=== PATIENT | female | born 2000 | race Caucasian/White ===

== ENCOUNTER 2020-05-03 22:34 | Outpatient (CLI) | payer MEDICAID, SELFPAY ==
[2020-05-03 22:49] VITALS: BMI 27.3
[2020-05-03 22:58] VITALS: BP 123/81; PULSE 96; RESP 16; TEMP 36.9; O2SAT 95; BMI 27.3
[2020-05-03 23:11] LABS: Microscopic, Urine URINE MICROSCOPIC (MICROSCOPIC)
[2020-05-03 23:13] LABS: Appearance,Urine CLEAR (Clear); Bilirubin,Urine Negative (Negative); Blood, Urine Negative (Negative); Color,Urine YELLOW (Yellow); Glucose,Urine (UA) Negative (Negative); Ketones,Urine Negative (Negative); Leukocyte Esterase,Urine 2+ (Negative); Nitrate,Urine Negative (Negative); PH,Urine 6.5 (5.0-8.5); Protein,Urine Negative (Negative); Specific Gravity, Urine 1.025 (1.005-1.030); Urobilinogen,Urine 0.2 EU/dl (0.2)
[2020-05-03 23:23] LABS: Barbiturates Screen,Urine Negative ng/ml (<200)
[2020-05-03 23:24] LABS: Amphetamine/Metha Screen,Urine Negative ng/ml (<1000); Bacteria,Urine 1+ /lpf; Benzodiazepines Screen,Urine Negative ng/ml (<200); Mucus,Urine 1+ /lpf
[2020-05-03 23:25] LABS: Cannabinoid Screen,Urine Negative ng/ml (<50)
[2020-05-03 23:26] LABS: Methadone Screen,Urine Negative ng/ml (<300)
[2020-05-03 23:27] LABS: Opiate Screen,Urine Negative ng/ml (<300)
[2020-05-03 23:28] LABS: Phencyclidine Screen,Urine Negative ng/ml (<25)
[2020-05-03 23:38] LABS: Cocaine Screen,Urine Negative ng/ml (<300)
[2020-05-04 00:51] LABS: Fetal Fibronectin (Rapid) Negative (Negative)
== END 2020-05-04 01:23 | disposition home or self-care (01) ==
LOC: OBOUT 22:40 → OB 22:42
PROVIDERS: PCP Family Medicine; Visit Provider Obstetrics & Gynecology
DX: O47.02 False labor before 37 completed weeks of gestation, second trimester (principal); Z3A.26 26 weeks gestation of pregnancy; R11.2 Nausea with vomiting, unspecified
CPT/HCPCS: 59025; 80305; 81001; 82731; 87086; 96365; G0463

== ENCOUNTER 2020-06-03 20:00 | Outpatient (CLI) | payer MEDICAID, SELFPAY ==
--- NOTE | 2020-06-03 | ECG_ITS ---
APPROVED REPORT Exam: Resting ECG HR:93 bpm ECG Measurements Heart Rate 93 AXES UT 154 P 37 QRSd 80 QRS 15 QT 362 T 9 QTc 450 Conclusion Normal sinus rhythm Nonspecific ST-T wave abnormalities Abnormal ECG Electronically signed by : Abner Canchola, 06/05/2020 17:31:41
[2020-06-03 20:15] VITALS: BP 142/79; PULSE 86; RESP 22; TEMP 36.6; O2SAT 99
[2020-06-03 20:33] VITALS: BMI 27.5
[2020-06-03 20:35] VITALS: BP 137/79; PULSE 87; RESP 16; TEMP 36.8; O2SAT 97; BMI 27.4
[2020-06-03 21:46] LABS: Microscopic, Urine URINE MICROSCOPIC (MICROSCOPIC)
[2020-06-03 21:49] LABS: Basophils % 0.3 % (0.1-2.0); Eosinophils # 0.1 K/mm3 (0.0-0.4); Eosinophils % 0.6 % (0.1-12.0); Hematocrit 35.8 % (37.0-47.0); Hemoglobin 12.6 g/dL (12.2-16.2); Lymphocytes # 2.8 K/mm3 (0.7-4.5); Lymphocytes % 28.7 % (10-50); Mean Corpuscular HGB Conc 35.2 g/dL (31.8-35.4); Mean Corpuscular Volume 88.1 fl (81-99); Mean Platelet Volume 9.3 fl (7.4-10.4); Monocytes # 0.4 K/mm3 (0.1-1.0); Neutrophils # 6.4 K/mm3 (1.8-7.8); Neutrophils % 66.5 % (37.0-80.0); Platelet Count 155 K/mm3 (142-424); Red Blood Count 4.06 M/mm3 (4.20-5.40); Red Cell Distribution Width 14.4 % (11.5-17.5); White Blood Count 9.7 K/mm3 (4.8-10.8)
[2020-06-03 21:50] LABS: Appearance,Urine SL CLOUDY (Clear); Bilirubin,Urine Negative (Negative); Blood, Urine Negative (Negative); Color,Urine YELLOW (Yellow); Glucose,Urine (UA) Negative (Negative); Ketones,Urine Negative (Negative); Leukocyte Esterase,Urine 1+ (Negative); Nitrate,Urine Negative (Negative); PH,Urine 6.5 (5.0-8.5); Protein,Urine Negative (Negative); Specific Gravity, Urine 1.025 (1.005-1.030); Urobilinogen,Urine 0.2 EU/dl (0.2)
[2020-06-03 21:59] LABS: Chloride 108 mmol/L (98-107); Potassium 3.4 mmoL/L (3.5-5.1); Sodium 135 mmol/L (136-145)
[2020-06-03 22:00] LABS: Squamous Epithelial Cell,Urine 20-50 #/hpf (0-5)
[2020-06-03 22:02] LABS: Blood Urea Nitrogen 8 mg/dl (7-17); Creatinine Clearance Estimated 202 mL/min (50-200); Estimated Glomerular Filt Rate 154 ml/min (>60); GFR (African American) 187 ML/MIN (>60)
[2020-06-03 22:03] LABS: Anion Gap 10.4 mEq/L (5-15); Calcium 9.2 mg/dl (8.4-10.2); Carbon Dioxide 20 mmol/L (22.0-30.0); Glucose 87 mg/dl (74-100)
[2020-06-03 22:09] LABS: Barbiturates Screen,Urine Negative ng/ml (<200); Benzodiazepines Screen,Urine Negative ng/ml (<200)
[2020-06-03 22:10] LABS: Amphetamine/Metha Screen,Urine Negative ng/ml (<1000)
[2020-06-03 22:11] LABS: Cannabinoid Screen,Urine Negative ng/ml (<50); Methadone Screen,Urine Negative ng/ml (<300)
[2020-06-03 22:12] LABS: Cocaine Screen,Urine Negative ng/ml (<300)
[2020-06-03 22:13] LABS: Opiate Screen,Urine Negative ng/ml (<300); Phencyclidine Screen,Urine Negative ng/ml (<25)
[2020-06-03 22:22] LABS: Coronavirus 19 IgG Antibody Negative (Negative); Coronavirus 19 IgM Antibody Negative (Negative)
== END 2020-06-03 22:54 | disposition home or self-care (01) ==
LOC: OBOUT 20:03 → OB 20:03
PROVIDERS: PCP Obstetrics & Gynecology; Visit Provider Nurse Practitioner Obstetrics & Gynecology
DX: O26.893 Other specified pregnancy related conditions, third trimester (principal); Z3A.31 31 weeks gestation of pregnancy; R06.02 Shortness of breath; I48.92 Unspecified atrial flutter
CPT/HCPCS: 36415; 59025; 80048; 80305; 81001; 85025; 86328; 87086; 93005; G0463

== ENCOUNTER 2020-06-20 17:20 | Outpatient (CLI) | payer MEDICAID, SELFPAY ==
[2020-06-20 17:54] VITALS: BP 123/78; PULSE 94; RESP 18; TEMP 37; O2SAT 100; BMI 27.1
[2020-06-20 17:59] LABS: Microscopic, Urine URINE MICROSCOPIC (MICROSCOPIC)
[2020-06-20 18:17] LABS: Appearance,Urine CLEAR (Clear); Bilirubin,Urine Negative (Negative); Blood, Urine Negative (Negative); Color,Urine YELLOW (Yellow); Glucose,Urine (UA) Negative (Negative); Ketones,Urine Negative (Negative); Leukocyte Esterase,Urine 1+ (Negative); Nitrate,Urine Negative (Negative); PH,Urine 6.5 (5.0-8.5); Protein,Urine Negative (Negative); Specific Gravity, Urine 1.025 (1.005-1.030); Urobilinogen,Urine 0.2 EU/dl (0.2)
[2020-06-20 18:19] LABS: Amphetamine/Metha Screen,Urine Negative ng/ml (<1000)
[2020-06-20 18:20] LABS: Barbiturates Screen,Urine Negative ng/ml (<200); Benzodiazepines Screen,Urine Negative ng/ml (<200)
[2020-06-20 18:21] LABS: Cannabinoid Screen,Urine Negative ng/ml (<50)
[2020-06-20 18:22] LABS: Cocaine Screen,Urine Negative ng/ml (<300); Methadone Screen,Urine Negative ng/ml (<300)
[2020-06-20 18:23] LABS: Opiate Screen,Urine Negative ng/ml (<300)
[2020-06-20 18:24] LABS: Phencyclidine Screen,Urine Negative ng/ml (<25)
[2020-06-20 18:42] LABS: Bacteria,Urine 1+ /lpf; Squamous Epithelial Cell,Urine 20-50 #/hpf (0-5)
[2020-06-20 18:49] LABS: Fetal Membrane Rupture (Rapid) Negative (Negative)
[2020-06-20 19:18] LABS: Fetal Fibronectin (Rapid) Negative (Negative)
== END 2020-06-20 19:44 | disposition home or self-care (01) ==
LOC: OBOUT 17:24 → OB 17:24
PROVIDERS: PCP Family Medicine; Visit Provider Obstetrics & Gynecology
DX: O36.8130 Decreased fetal movements, third trimester, not applicable or unspecified (principal); Z3A.33 33 weeks gestation of pregnancy; R10.2 Pelvic and perineal pain; M54.5 Low back pain
CPT/HCPCS: 59025; 80305; 81001; 82731; 84112; 87086; G0463

== ENCOUNTER 2020-06-24 13:22 | Emergency (ER) | payer MEDICAID, SELFPAY ==
[2020-06-24 13:45] VITALS: BP 140/90; PULSE 89; RESP 20; TEMP 36.6; O2SAT 99; BMI 28.1
--- NOTE | 2020-06-24 14:03 | HMH.EDUTC ---
[facility] [place] Disposition Clinical Impression: Exposure to COVID-19 virus Disposition: Home, Self-Care Condition on Discharge: Good Instructions: Preventing the Spread of Coronavirus Discharge Instructions Additional Instructions: You have been tested for COVID19. These test results usually take 24-48 hours. However, based on your exposure history, you need to quarantine yourself for 14 days from the date of exposure to avoid spread. Referrals: Joni Esposito [Primary Care Provider] - Time of Disposition: 14:06 Medical Decision Making - Paresh Inquiry Pt receiving controlled substance: No Vital Signs: 06/24/20 13:45 Temperature 97.9 F Temperature Source Oral Pulse Rate [Radial] 89 Respiratory Rate 20 Blood Pressure [Right Arm] 140/90 Blood Pressure Mean [Right Arm] 106 Blood Pressure Source [Right Arm] Automatic Cuff Blood Pressure Position [Right Arm] Sitting 02 Sat by Pulse Oximetry 99 Oxygen Delivery Method Room Air Orders (Tests/Meds): ORDERS Category Date Time Status Covid-19 Nasal PCR Sendout [facility] 06/24/20 13:40 Received [facility] [place] HPI - General Stated complaint: COVID Exposure, cough, GARCIA Time Seen by Provider: 06/24/20 14:03 Mode of Arrival: Ambulatory Source of Information: Patient Limitations: No Limitations Description of Symptoms (Recalled from Triage Doc. by RN): covid exposure HEENT Symptoms (Recalled from RN notes): No Resp Symptoms (Recalled from RN notes): No Skin Symptoms (Recalled from RN notes): No MS Symptoms (Recalled from RN notes): No Functional Status (Recalled from RN notes): wnl - History of Present Illness Provider Complaint: Patient exposed to COVID19 06/21. She is having runny nose, cough, sinus pain. No fever. No loss of taste or smell. No vomiting or diarrhea. She is 34 weeks . Onset (ago): day(s) (3) Relieving factors: none Exacerbating factors: none Associated symptoms: denies other symptoms Treatments prior to arrival: none - Related Data Home Medications Medication Instructions Recorded Confirmed Docusate Sodium [Stool Softener] 100 mg PO BID 05/04/20 06/18/20 Ondansetron [Zofran 4mg ODT] 4 mg PO BIDP PRN 05/04/20 06/18/20 Pnv No.103/Folic/Om3s/Fish Oil 1 each PO DAILY 05/04/20 06/18/20 [ Gummies] Allergies Allergy/AdvReac Type Severity Reaction Status Date / Time amoxicillin [From Augmentin] Allergy Verified 06/18/20 14:01 clavulanic acid Allergy Verified 06/18/20 14:01 [From Augmentin] Penicillins Allergy Verified 06/18/20 14:01 - Worker's Comp Is this a Worker's Comp case?: No [facility] History - Hepatitis A Screen Drug use history?: No High risk sexual behaviors?: No History of sexually transmitted infection?: No Currently employed?: No Childcare worker?: No Do you have indoor plumbing?: Yes Do you have electricity?: Yes Attestation statement:: This patient has been screened for Hepatitis A risk factors. I have reviewed the patient's past medical history: Yes Medical History: Reports:: Anxiety, Depression Laterality Cases: Bilateral: Tonsillectomy Other Surgeries: No: Amputation: No Fractures: No - Social History Smoking Status: Current every day smoker Tobacco Type: cigarettes # Packs/Day (cigarettes): 1 Alcohol Intake: never Alcohol Intake Frequency:: holidays/special occasions only Substance Use Type: denies use Occupational Status: other Housing: house - Psychiatric History Pschychiatric History:: Reports:: Anxiety, Depression Family Hx:: No significant family history ROS Obtained: Yes All systems reviewed & no additional complaints - ENT Ears, Nose, Mouth, and Throat: Reports sinus pain - Respiratory Respiratory: Yes cough Physical Exam - General General appearance: alert, in no apparent distress - Head Head exam: normocephalic - Eye Eye exam: Present: PERRL - ENT ENT exam: Present: normal oropharynx, TM's normal bilaterally - Chest Katarina
[2020-06-24 14:13] VITALS: BP 140/90; PULSE 89; RESP 20; TEMP 36.6; O2SAT 99
[2020-06-25 10:07] LABS: Covid-19 Nasal PCR Sendout UK NOT DETECTED
== END 2020-06-24 14:14 | disposition home or self-care (01) ==
PROVIDERS: Emergency Provider Physician Assistant; PCP Family Medicine
DX: Z20.828 Contact with and (suspected) exposure to other viral communicable diseases (principal); F17.210 Nicotine dependence, cigarettes, uncomplicated; Z88.0 Allergy status to penicillin
CPT/HCPCS: 99201; U0003

== ENCOUNTER 2020-06-26 14:27 | Outpatient (CLI) | payer MEDICAID, SELFPAY ==
--- NOTE | 2020-06-26 14:27 | US_ITS ---
PROCEDURE: US OB BIOPHYSICAL PROFILE CLINICAL INDICATION: sga TECHNIQUE: FINDINGS: The following parameters are obtained: Average ultrasound age is Average 35weeks 3days Estimated due date by ultrasound is 07/28/2020. Estimated weight is 2,593g. This is 65th percentile. BPD 35 weeks 6 days, OFD 37 weeks 3 days, HC 35 weeks 6 days, AC 35 weeks 0 days, FL 35 weeks 0 days. heart rate: 134bpm bpm. HC/AC: 1.03 Cephalic index: 0.79 FL/BPD: 0.77 FL/AC: 0.22 Amniotic fluid index: 12.12cm Qualitative AFV: 2 breathing movements: 2 Gross body movements: 2 Tone: 2 Biophysical profile score: 8 Single live fetus is present which is in cephalic presentation. heart and body motion is noted. The placenta is anterior and grade 2. Cervix is closed and measures 3 cm. IMPRESSION: Live IUP at 35 weeks 3 days with an estimated weight of 2593 g which is 65th percentile. Biophysical profile 8 of 8. FRANSISCA normal at 12 cm Dictated by: Antonio Wakefield MD 06/27/2020 12:34 Antonio Wakefield MD in [place] 06/27/2020 12:35
[2020-06-26 16:17] VITALS: BMI 60.9
[2020-06-26 17:16] LABS: Microscopic, Urine URINE MICROSCOPIC (MICROSCOPIC)
[2020-06-26 17:21] LABS: Appearance,Urine CLEAR (Clear); Bilirubin,Urine Negative (Negative); Blood, Urine Negative (Negative); Color,Urine YELLOW (Yellow); Glucose,Urine (UA) Negative (Negative); Ketones,Urine Negative (Negative); Leukocyte Esterase,Urine Negative (Negative); Nitrate,Urine Negative (Negative); PH,Urine 6.5 (5.0-8.5); Protein,Urine Negative (Negative); Urobilinogen,Urine 0.2 EU/dl (0.2)
[2020-06-26 17:25] VITALS: BP 133/88; PULSE 95; RESP 18; TEMP 36.9; O2SAT 100
[2020-06-26 17:27] VITALS: BMI 27.6
[2020-06-26 17:29] LABS: Basophils % 0.2 % (0.1-2.0); Eosinophils # 0.1 K/mm3 (0.0-0.4); Eosinophils % 0.5 % (0.1-12.0); Hematocrit 38.2 % (37.0-47.0); Hemoglobin 13.5 g/dL (12.2-16.2); Lymphocytes # 2.7 K/mm3 (0.7-4.5); Lymphocytes % 24.7 % (10-50); Mean Corpuscular HGB Conc 35.4 g/dL (31.8-35.4); Mean Corpuscular Hemoglobin 30.7 pg (27.0-31.2); Mean Corpuscular Volume 86.8 fl (81-99); Mean Platelet Volume 9.4 fl (7.4-10.4); Monocytes # 0.5 K/mm3 (0.1-1.0); Monocytes % 4.2 % (1.7-9.3); Neutrophils # 7.7 K/mm3 (1.8-7.8); Neutrophils % 70.4 % (37.0-80.0); Platelet Count 152 K/mm3 (142-424); Red Cell Distribution Width 14.5 % (11.5-17.5); White Blood Count 10.9 K/mm3 (4.8-10.8)
[2020-06-26 17:32] LABS: Benzodiazepines Screen,Urine Negative ng/ml (<200)
[2020-06-26 17:33] LABS: Amphetamine/Metha Screen,Urine Negative ng/ml (<1000); Barbiturates Screen,Urine Negative ng/ml (<200)
[2020-06-26 17:34] LABS: Methadone Screen,Urine Negative ng/ml (<300)
[2020-06-26 17:35] LABS: Cannabinoid Screen,Urine Negative ng/ml (<50); Cocaine Screen,Urine Negative ng/ml (<300)
[2020-06-26 17:36] LABS: Chloride 107 mmol/L (98-107); Sodium 135 mmol/L (136-145)
[2020-06-26 17:36] LABS: Opiate Screen,Urine Negative ng/ml (<300); Phencyclidine Screen,Urine Negative ng/ml (<25)
[2020-06-26 17:37] LABS: Potassium 3.7 mmoL/L (3.5-5.1)
[2020-06-26 17:40] LABS: Anion Gap 12.7 mEq/L (5-15); Blood Urea Nitrogen 6 mg/dl (7-17); Calcium 9.3 mg/dl (8.4-10.2); Carbon Dioxide 19 mmol/L (22.0-30.0); Creatinine Clearance Estimated 203 mL/min (50-200); Estimated Glomerular Filt Rate 154 ml/min (>60); GFR (African American) 187 ML/MIN (>60); Glucose 80 mg/dl (74-100)
[2020-06-26 17:44] LABS: Bacteria,Urine Trace /lpf
== END 2020-06-26 19:15 | disposition hospice, home (50) ==
LOC: RAD 14:27 → OBOUT 16:06 → OB 16:06
PROVIDERS: PCP Family Medicine; Visit Provider Nurse Practitioner Obstetrics & Gynecology
DX: O36.5930 Maternal care for other known or suspected poor fetal growth, third trimester, not applicable or unspecified (principal); Z3A.34 34 weeks gestation of pregnancy
CPT/HCPCS: 59025; 76811; 76819; 80048; 80305; 81001; 85025; 96365; G0463; J2405

== ENCOUNTER 2020-06-30 18:16 | Outpatient (CLI) | payer MEDICAID, SELFPAY ==
[2020-06-30 18:19] VITALS: BMI 27.7
[2020-06-30 19:14] LABS: Microscopic, Urine URINE MICROSCOPIC (MICROSCOPIC)
[2020-06-30 19:15] LABS: Appearance,Urine CLEAR (Clear); Bilirubin,Urine Negative (Negative); Blood, Urine Negative (Negative); Color,Urine YELLOW (Yellow); Glucose,Urine (UA) Negative (Negative); Ketones,Urine Negative (Negative); Leukocyte Esterase,Urine TRACE (Negative); Nitrate,Urine Negative (Negative); Protein,Urine Negative (Negative); Urobilinogen,Urine 0.2 EU/dl (0.2)
[2020-06-30 19:24] VITALS: BMI 27.6
[2020-06-30 19:27] LABS: Amphetamine/Metha Screen,Urine Negative ng/ml (<1000); Barbiturates Screen,Urine Negative ng/ml (<200)
[2020-06-30 19:28] LABS: Cannabinoid Screen,Urine Negative ng/ml (<50)
[2020-06-30 19:29] LABS: Cocaine Screen,Urine Negative ng/ml (<300)
[2020-06-30 19:30] LABS: Methadone Screen,Urine Negative ng/ml (<300); Opiate Screen,Urine Negative ng/ml (<300)
[2020-06-30 19:31] LABS: Phencyclidine Screen,Urine Negative ng/ml (<25)
[2020-06-30 19:32] LABS: Bacteria,Urine Trace /lpf
[2020-06-30 19:33] LABS: Benzodiazepines Screen,Urine Negative ng/ml (<200)
== END 2020-06-30 20:30 | disposition home or self-care (01) ==
LOC: OBOUT 18:18 → OB 18:18
PROVIDERS: PCP Family Medicine; Visit Provider Obstetrics & Gynecology
DX: O47.03 False labor before 37 completed weeks of gestation, third trimester (principal); Z3A.35 35 weeks gestation of pregnancy
CPT/HCPCS: 59025; 80305; 81001; 87086; G0463

== ENCOUNTER → 2020-07-02 17:47 | Outpatient (CLI) | payer MEDICAID, SELFPAY ==
[2020-07-02 17:49] LABS: Microscopic, Urine URINE MICROSCOPIC (MICROSCOPIC)
[2020-07-02 18:50] LABS: Appearance,Urine CLEAR (Clear); Bilirubin,Urine Negative (Negative); Blood, Urine Negative (Negative); Color,Urine YELLOW (Yellow); Glucose,Urine (UA) Negative (Negative); Ketones,Urine Negative (Negative); Leukocyte Esterase,Urine 1+ (Negative); Nitrate,Urine Negative (Negative); PH,Urine 6.5 (5.0-8.5); Protein,Urine Negative (Negative); Specific Gravity, Urine 1.025 (1.005-1.030); Urobilinogen,Urine 0.2 EU/dl (0.2)
[2020-07-02 19:28] LABS: WBC,Urine Occasional #/hpf (0-3)
== END ==
PROVIDERS: Visit Provider Nurse Practitioner Obstetrics & Gynecology
DX: Z34.90 Encounter for supervision of normal pregnancy, unspecified, unspecified trimester (principal); Z3A.35 35 weeks gestation of pregnancy
CPT/HCPCS: 81001; 86403; 87086

== ENCOUNTER → 2020-07-06 13:52 | Outpatient (CLI) | payer MEDICAID, SELFPAY ==
--- NOTE | 2020-07-06 13:52 | US_ITS ---
PROCEDURE: US OB FOLLOW UP CLINICAL INDICATION: sga Small for gestational age COMPARISON: US US OB BIOPHYSICAL PROFILE from 06/26/2020 FINDINGS: There is a single live fetus in cephalic presentation. heart body motion noted. Placenta is anterior and grade 2. Biophysical profile is 8 of 8. FRANSISCA is 13 cm. Cervix is closed measuring 4 cm. Measurements: Average ultrasound age 36weeks 4days. Gestational Age 36weeks 4days Estimated due date by ultrasound age 0107/30/2020. Estimated weight 2,840g BPD = 37weeks 4days OFD = 39 weeks 5 days HC = 37weeks 1day AC = 35weeks 5days FL = 35weeks 6days Growth Percentile= 58% Heart Rate = 134bpm Cerebellum = Humerus = HC/AC is 1.03 CI is 0.81 FL/BPD is 0.76 FL/AC is 0.22 IMPRESSION: Live IUP at 36 weeks 4 days. Estimated weight 2840 g which is 58 percentile Biophysical profile 8 of 8 FRANSISCA 13 cm Dictated by: Antonio Wakefield MD 07/06/2020 17:26 Antonio Wakefield MD in [place] 07/06/2020 17:26
== END ==
PROVIDERS: PCP Family Medicine; Visit Provider Nurse Practitioner Obstetrics & Gynecology
DX: O36.5990 Maternal care for other known or suspected poor fetal growth, unspecified trimester, not applicable or unspecified (principal)
CPT/HCPCS: 76816; 76819

== ENCOUNTER 2020-07-17 22:20 | Outpatient (CLI) | payer MEDICAID, SELFPAY ==
[2020-07-17 22:29] VITALS: BMI 28.1
[2020-07-17 22:46] VITALS: BP 136/88; PULSE 108; RESP 16; TEMP 37.2; O2SAT 97; BMI 28.1
[2020-07-17 22:46] LABS: Microscopic, Urine URINE MICROSCOPIC (MICROSCOPIC)
[2020-07-17 22:47] LABS: Appearance,Urine CLEAR (Clear); Bilirubin,Urine Negative (Negative); Blood, Urine Negative (Negative); Color,Urine YELLOW (Yellow); Glucose,Urine (UA) Negative (Negative); Ketones,Urine Negative (Negative); Leukocyte Esterase,Urine 1+ (Negative); Nitrate,Urine Negative (Negative); PH,Urine 6.5 (5.0-8.5); Protein,Urine Negative (Negative); Specific Gravity, Urine 1.025 (1.005-1.030); Urobilinogen,Urine 0.2 EU/dl (0.2)
[2020-07-17 23:00] LABS: Amphetamine/Metha Screen,Urine Negative ng/ml (<1000); Barbiturates Screen,Urine Negative ng/ml (<200)
[2020-07-17 23:01] LABS: Benzodiazepines Screen,Urine Negative ng/ml (<200)
[2020-07-17 23:02] LABS: Cannabinoid Screen,Urine Negative ng/ml (<50); Cocaine Screen,Urine Negative ng/ml (<300)
[2020-07-17 23:03] LABS: Methadone Screen,Urine Negative ng/ml (<300)
[2020-07-17 23:04] LABS: Opiate Screen,Urine Negative ng/ml (<300); Phencyclidine Screen,Urine Negative ng/ml (<25)
[2020-07-17 23:23] LABS: Bacteria,Urine 1+ /lpf; Mucus,Urine 1+ /lpf
== END 2020-07-17 23:32 | disposition home or self-care (01) ==
LOC: OBOUT 22:23 → OB 22:23
PROVIDERS: PCP Family Medicine; Visit Provider Obstetrics & Gynecology
DX: O60.03 Preterm labor without delivery, third trimester (principal); Z3A.37 37 weeks gestation of pregnancy; R11.10 Vomiting, unspecified
CPT/HCPCS: 59025; 80305; 81001; 87086; G0463

== ENCOUNTER 2020-07-24 10:23 | Outpatient (CLI) | payer MEDICAID, SELFPAY ==
[2020-07-24 11:00] VITALS: BP 130/88; PULSE 104; RESP 20; TEMP 36.7; O2SAT 98; BMI 31.6
[2020-07-24 11:11] VITALS: BMI 31.6
[2020-07-24 11:33] LABS: Microscopic, Urine URINE MICROSCOPIC (MICROSCOPIC)
[2020-07-24 11:47] LABS: Appearance,Urine Clear (Clear); Bilirubin,Urine Negative (Negative); Blood, Urine Trace (Negative); Color,Urine Yellow (Yellow); Glucose,Urine (UA) Negative (Negative); Ketones,Urine Negative (Negative); Leukocyte Esterase,Urine Negative (Negative); Nitrate,Urine Negative (Negative); Protein,Urine Negative (Negative); Urobilinogen,Urine 0.2 EU/dl (0.2)
[2020-07-24 11:52] LABS: Barbiturates Screen,Urine Negative ng/ml (<200); Benzodiazepines Screen,Urine Negative ng/ml (<200)
[2020-07-24 11:53] LABS: Amphetamine/Metha Screen,Urine Negative ng/ml (<1000); Cannabinoid Screen,Urine Negative ng/ml (<50)
[2020-07-24 11:54] LABS: Cocaine Screen,Urine Negative ng/ml (<300)
[2020-07-24 11:55] LABS: Methadone Screen,Urine Negative ng/ml (<300); Opiate Screen,Urine Negative ng/ml (<300)
[2020-07-24 11:56] LABS: Phencyclidine Screen,Urine Negative ng/ml (<25)
[2020-07-24 12:03] LABS: Fetal Membrane Rupture (Rapid) Negative (Negative)
== END 2020-07-24 12:28 | disposition home or self-care (01) ==
LOC: OBOUT 10:27 → OB 10:28
PROVIDERS: PCP Family Medicine; Visit Provider Nurse Practitioner Obstetrics & Gynecology
DX: O26.893 Other specified pregnancy related conditions, third trimester (principal); Z3A.38 38 weeks gestation of pregnancy
CPT/HCPCS: 59025; 80305; 81001; 84112

== ENCOUNTER 2020-07-31 04:53 | Inpatient (IN) | payer MEDICAID, SELFPAY ==
[2020-07-31 05:07] VITALS: BMI 27.8
[2020-07-31 05:57] VITALS: BP 139/96; PULSE 110; RESP 18; TEMP 36.7; O2SAT 100; BMI 27.8
[2020-07-31 05:58] LABS: Microscopic, Urine URINE MICROSCOPIC (MICROSCOPIC)
[2020-07-31 06:04] LABS: Basophils % 0.3 % (0.1-2.0); Eosinophils % 0.4 % (0.1-12.0); Hematocrit 38.2 % (37.0-47.0); Hemoglobin 13.8 g/dL (12.2-16.2); Lymphocytes # 3.2 K/mm3 (0.7-4.5); Lymphocytes % 28.7 % (10-50); Mean Corpuscular HGB Conc 36.1 g/dL (31.8-35.4); Mean Corpuscular Volume 85.8 fl (81-99); Mean Platelet Volume 9.4 fl (7.4-10.4); Monocytes # 0.5 K/mm3 (0.1-1.0); Monocytes % 4.6 % (1.7-9.3); Neutrophils # 7.3 K/mm3 (1.8-7.8); Platelet Count 133 K/mm3 (142-424); Red Blood Count 4.45 M/mm3 (4.20-5.40); Red Cell Distribution Width 15.3 % (11.5-17.5)
[2020-07-31 06:12] LABS: Appearance,Urine CLEAR (Clear); Bilirubin,Urine Negative (Negative); Blood, Urine Negative (Negative); Color,Urine YELLOW (Yellow); Glucose,Urine (UA) Negative (Negative); Ketones,Urine Negative (Negative); Leukocyte Esterase,Urine 1+ (Negative); Nitrate,Urine Negative (Negative); PH,Urine 6.5 (5.0-8.5); Protein,Urine Negative (Negative); Urobilinogen,Urine 0.2 EU/dl (0.2)
[2020-07-31 06:22] LABS: RBC,Urine Occasional #/hpf (0-3)
[2020-07-31 06:23] LABS: Amphetamine/Metha Screen,Urine Negative ng/ml (<1000); Benzodiazepines Screen,Urine Negative ng/ml (<200)
[2020-07-31 06:24] LABS: Barbiturates Screen,Urine Negative ng/ml (<200)
[2020-07-31 06:25] LABS: Cannabinoid Screen,Urine Negative ng/ml (<50); Cocaine Screen,Urine Negative ng/ml (<300)
[2020-07-31 06:26] LABS: Methadone Screen,Urine Negative ng/ml (<300); Opiate Screen,Urine Negative ng/ml (<300)
[2020-07-31 06:27] LABS: Phencyclidine Screen,Urine Negative ng/ml (<25)
[2020-07-31 06:39] LABS: Coronavirus 19 IgG Antibody Negative (Negative); Coronavirus 19 IgM Antibody Negative (Negative)
[2020-07-31 08:00] VITALS: BP 130/86; PULSE 93; RESP 20; TEMP 37; O2SAT 100
--- NOTE | 2020-07-31 08:21 | HMH.LABNOT ---
Labor Note - Subjective: Date: 07/31/20 Time: 08:21 regular contraction - Objective: NST:: Reactive Contractions:: every 2-3 minutes Cervical Dilation:: 2-3 Effacement:: 75% Station: -1 Membranes: artificially ruptured Comment:: I ruptured her membranes and there was clear fluid. I inserted an IUPC - Fetus: Monitoring?: Yes monitoring type:: Internal and External - Assessment: Labor progressing?: Yes Cephalopelvic disproportion?: No Patient Problems: All Active Problems Exposure to COVID-19 virus (Acute) (Acute) - Plan: Anesthesia for epidural?: Yes Continue to labor down?: Yes Plan for ?: No Continue to monitor?: Yes Start pushing?: No
--- NOTE | 2020-07-31 08:22 | HMH.OBAPHP ---
OB - H&P: HPI Antepartum - History of Present Illness Chief complaint: Pressure and occasional contractions, term History of present illness: She is a 20-year-old eight para one aborta six who is 39 and 3 weeks gestational age. She has had lots of pressure and occasional contractions. As result of this we elected to augment her labor at term. - History of Present Criteria for establishing EDC:: LMP confirmed by 1st trimester US care: good care Ultrasounds: normal mid trimester US Obstetrical complications: none Medical complications: none - Labs Blood type: O (+) positive Rubella: immune RPR/VDRL: nonreactive GBS status: negative HBsAG: negative [facility] History I have reviewed the patient's past medical history: Yes Medical History: Reports:: Anxiety, Depression *Have you ever received a pneumonia vaccine?: No *Have you received a flu vaccine this season?: No Laterality Cases: Bilateral: Tonsillectomy Other Surgeries: Yes: No Previous Surgery. No: Amputation: No Fractures: No - *Social History Smoking Status: Current every day smoker Tobacco Type: cigarettes # Packs/Day (cigarettes): 1 Alcohol Intake: never Alcohol Intake Frequency:: holidays/special occasions only Substance Use Type: denies use *Occupational Status:: unemployed Housing: house *Travel in the last 8 weeks: None - Psychiatric History Pschychiatric History:: Reports:: Anxiety, Depression Family Hx:: No significant family history Para: 1 Review of Systems - Review of Systems Review of systems:: pertinent systems reviewed and negative unless documented below Meds Home Medications Medication Instructions Recorded Confirmed Type Pnv No.103/Folic/Om3s/Fish Oil 1 each PO DAILY 05/04/20 07/31/20 History [ Gummies] Allergies Allergy/AdvReac Type Severity Reaction Status Date / Time amoxicillin [From Augmentin] Allergy Verified 07/23/20 13:51 clavulanic acid Allergy Verified 07/23/20 13:51 [From Augmentin] Penicillins Allergy Verified 07/23/20 13:51 OB - H&P: Exam - Physical Exam Vital signs: Temp Pulse Resp BP Pulse Ox 98.1 F 110 H 18 139/96 H 100 07/31/20 05:57 07/31/20 05:57 07/31/20 05:57 07/31/20 05:57 07/31/20 05:57 - Constitutional no acute distress - Routine HEENT Exam Head: Present: normocephalic Eye: Present: EOMI, PERRL ENT: Present: mucous membranes moist - Routine Neck Exam Present: supple, full ROM - Routine Respiratory Exam Absent: accessory muscle use (good air entry bilaterally), respiratory distress, wheezes, crackles - Routine Cardiovascular Exam Present: RRR. Absent: murmur - Routine Abdominal Exam Present: soft, normoactive bowel sounds. Absent: tenderness, distended, guarding - Routine Rectal Exam Patient deferred: visual exam, digital exam - Routine Exam Patient deferred: external exam, groin exam, perineal exam - Routine Extremities Exam Present: full ROM. Absent: cyanosis, edema - Routine Skin Exam Present: intact. Absent: cyanosis - Routine Neurological Exam Present: alert, oriented X3 - Routine Psychiatric Exam Present: normal affect OB - Results - Labs Labs: Short CBC 07/31/20 Range/Units 05:40 WBC 11.0 H (4.8-10.8) K/mm3 Hgb 13.8 (12.2-16.2) g/dL Hct 38.2 (37.0-47.0) % Plt Count 133 L (142-424) K/mm3 Urine 07/31/20 Range/Units 05:15 Urine Color Yellow (Yellow) Urine Appearance Clear (Clear) Urine pH 6.5 (5.0-8.5) Ur Specific [place] 1.020 (1.005-1.030) Urine Protein Negative (Negative) Urine Glucose (UA) Negative (Negative) OB - A/P Antepartum (1) Normal delivery Status: Acute - Additional Plan Planning to breastfeed?: Yes Plan: induction Additional Information:: She is term with occasional contractions and pressure. We will plan to deliver her. She has had a previous vaginal delivery.
--- NOTE | 2020-07-31 09:03 | HMH.ANESCL ---
[facility] Anesthesia Checklist - Structural Data Admitted From: Home Planned Operative Procedure/s: labor epidural Consent for Planned Operative Procedure(s) Verified: Yes - Airway Assessment C-Spine Mobility Assessed: Yes TMJ Mobility Assessed: Yes Dentition: Good Dentition - Anesthesia Plan Anesthesia Risk discussed: Yes Anesthesia Plan: Verified ASA Class: II Anesthesia Type: Epidural [facility] History I have reviewed the patient's past medical history: Yes Medical History: Reports:: Anxiety, Depression *Have you ever received a pneumonia vaccine?: No *Have you received a flu vaccine this season?: No Anesthesia experience/problems:: none Laterality Cases: Bilateral: Tonsillectomy Other Surgeries: Yes: No Previous Surgery. No: Amputation: No Fractures: No - *Social History Smoking Status: Current every day smoker Tobacco Type: cigarettes # Packs/Day (cigarettes): 1 Alcohol Intake: never Alcohol Intake Frequency:: holidays/special occasions only Substance Use Type: denies use *Occupational Status:: unemployed Housing: house *Travel in the last 8 weeks: None - Psychiatric History Pschychiatric History:: Reports:: Anxiety, Depression Family Hx:: No significant family history Para: 1
--- NOTE | 2020-07-31 11:21 | HMH.LABNOT ---
Labor Note - Subjective: Date: 07/31/20 Time: 11:21 regular contraction - Objective: Contractions:: every 2-3 minutes Cervical Dilation:: 4-5 Effacement:: 90% Station: -1 Membranes: artificially ruptured - Fetus: Monitoring?: Yes monitoring type:: Internal and External - Assessment: Labor progressing?: Yes Cephalopelvic disproportion?: No Patient Problems: All Active Problems Exposure to COVID-19 virus (Acute) Normal delivery (Acute) (Acute) - Plan: Anesthesia for epidural?: Yes Continue to labor down?: Yes Plan for ?: No Continue to monitor?: Yes Start pushing?: No Comment:: She continues to do well. She is serjio regularly. Her cervix is changing. We will continue to monitor. She does have an IUPC in place.
--- NOTE | 2020-07-31 13:53 | P.PCN_ITS ---
- Delivery Note Delivery Date:: 07/31/20 Delivery Time:: 11:36 Anesthesia Type: Epidural Was labor medically induced?: Yes Induction method: per pitocin protocol Gestational age (weeks): 39 Infant delivered prior to 39 weeks?: No Infant Gender: Male at 1 minute: 8 at 5 minutes: 9 LAC or MLE?: LAC Delivery Procedure:: She is a 20-year-old 8 para 1 aborta 6 who was 39+3 weeks gestational age. She was having lots of pressure and discomfort so we elected to induce her labor at term. She was started on IV oxytocin and had her membranes ruptured. Under labor epidural she progressed to full dilation and delivered spontaneously a liveborn male child at 1:36 PM in the afternoon of July 31, 2020. On deliver the head the anterior shoulder then easily delivered followed by the rest the 's body atraumatically. The baby was vigorous and the oropharynx and nasopharynx were bulb suctioned. We allowed the cord to continue to pulsate for approximately 1 minute. The cord was then doubly clamped and cut and the was placed on the mother's abdomen for further care. I then obtained cord blood as well as cord pH. She received IV oxytocin and using gentle traction the cord and countertraction on the fundus I was able to easily deliver the placenta intact. Had normal three-vessel cord. She had a second-degree perineal laceration that was repaired with 3-0 Vicryl Rapide suture to the superficial tissues and 2-0 Vicryl suture to the deep tissues of the perineum. She has O+ blood, she is rubella immune and was group B streptococcus negative. She plans to breast-feed. Her financial services professional is Dr. Diaz. Estimated blood loss was approximately 400 cc. Laceration:: vaginal Placental Delivery Description: Spontaneous
[2020-07-31 13:56] LABS: Cord Blood PH 7.32 (7.35-7.45)
[2020-07-31 20:00] VITALS: BP 104/56; PULSE 66; RESP 18; TEMP 36.7; O2SAT 99
[2020-08-01 07:54] LABS: Hematocrit 35.4 % (37.0-47.0); Hemoglobin 12.6 g/dL (12.2-16.2)
--- NOTE | 2020-08-01 10:41 | HMH.ACPN2 ---
Internal Medicine - PN: Subj *Date: 08/01/20 *Time: 10:41 Interval history: She is doing very well this morning. She is eating and drinking and ambulating. Her lochia is normal. Her pain is well controlled. She is bottlefeeding. Exam Vital signs and Labs for Last 24 Hours: Temp Pulse Resp BP Pulse Ox 98.0 F 66 18 104/56 L 99 07/31/20 20:00 07/31/20 20:00 07/31/20 20:00 07/31/20 20:00 07/31/20 20:00 Laboratory Results - last 24 hr 07/31/20 13:54: Cord ABG pH 7.32 L 08/01/20 06:50: Hgb 12.6, Hct 35.4 L I & O for Last 24 hours: Intake & Output 07/29/20 07/30/20 07/31/20 08/01/20 11:59 11:59 11:59 11:59 Weight 162 lb Microbiology Reports for the Last 24 Hours: Microbiology 07/31/20 05:15 Urine,Clean Catch Urine Culture - Preliminary - Constitutional no acute distress - *Routine HEENT Exam Head: Present: normocephalic Eye: Present: EOMI, PERRL ENT: Present: mucous membranes moist Assessment and Plan (1) Normal delivery Status: Acute Category: Medical Code(s): O80 - Encounter for full-term uncomplicated delivery - Assessment and plan all Dx Assessment and Plan for all problems:: She is doing very well this morning. We will plan to send her home tomorrow.
[2020-08-01 19:43] VITALS: BP 126/74; PULSE 72; RESP 18; TEMP 36.7; O2SAT 99
[2020-08-02 03:31] VITALS: BP 126/77; PULSE 71; RESP 18; TEMP 36.4; O2SAT 98
--- NOTE | 2020-08-02 08:36 | P.DS_ITS ---
General - General Admission date:: 07/31/20 Discharge date: 08/02/20 HPI - History of Present Illness History of present illness: She is a 20-year-old 8 para 1 aborta 6 who was 39 and 3 weeks gestational age. She was feeling pressure and discomfort and as result of that we elected to induce her labor at term. Hospital Course Hospital Course: She was admitted and started on IV oxytocin. She had her membranes ruptured and under labor epidural progressed to full dilation and delivered spontaneously a liveborn male child at 1:36 PM in the afternoon of July 31, 2020. The baby weighed 8 pounds 3 ounces and had Apgars of 8 at 1 minute and 9 at 5 minutes. She has done well and has remained afebrile throughout her hospitalization. She is eating and drinking and ambulating. She is bottlefeeding. She would like a tubal ligation for control. She has O Rh+ blood, she is rubella immune and was group B streptococcus negative. She is bottlefeeding. Her hot tar roofer helper is Dr. Diaz. She is discharged home to follow-up with me in approximately 2 weeks time. She will continue with her vitamins and iron. She is taking [id number] analgesics. Her condition on discharge is stable and improved. Rhogam Administration: Not Indicated Objective Vital signs: Temp Pulse Resp BP Pulse Ox 97.6 F 71 18 126/77 98 08/02/20 03:31 08/02/20 03:31 08/02/20 03:31 08/02/20 03:31 08/02/20 03:31 no acute distress - *Routine HEENT Exam Head: Present: normocephalic Eye: Present: EOMI, PERRL ENT: Present: mucous membranes moist DS: Diagnosis - Discharge Diagnosis (1) Normal delivery Status: Acute Discharge Plan - Patient Discharge Instructions ACTIVITY: No heavy lifting DIET: continue same diet Additional Instructions: NO HEAVY LIFTING (NOTHING HEAVIER THAN BABY IN CARRIER), NOTHING IN THE VAGINA, NO SEXUAL INTERCOURSE, UNTIL RELEASED BY DOCTOR. Patient Instructions: Depression, Hemorrhage, DI for Labor and Delivery, Vaginal , Preventing the Spread of Coronavirus Discharge Instructions - Follow up Plan Follow up with: Luis Clark MD [Staff Physician] - Disposition: Home, Self-Assisted Medications: Home Medications Medication Instructions Recorded Confirmed Type Pnv No.103/Folic/Om3s/Fish Oil 1 each PO DAILY 05/04/20 07/31/20 History [ Gummies] Prescriptions/Medication Reconciliation: Continued Pnv No.103/Folic/Om3s/Fish Oil [ Gummies] 1 each PO DAILY - Problem Reconciliation Problems Reviewed?: Yes
== END 2020-08-02 10:40 | disposition home or self-care (01) | DRG 807 ==
PROVIDERS: Admitting Provider Nurse Practitioner Obstetrics & Gynecology; PCP Family Medicine; Visit Provider Nurse Practitioner Obstetrics & Gynecology
DX: O70.1 Second degree perineal laceration during delivery (principal); Z37.0 Single live birth; Z3A.39 39 weeks gestation of pregnancy
CPT/HCPCS: 59409; 59025; 80305; 81001; 82800; 85014; 85018; 85025; 86328; 86850; 87086; C1758; J2405

== ENCOUNTER → 2020-11-13 14:18 | Outpatient (CLI) | payer MEDICAID, SELFPAY ==
--- NOTE | 2020-11-13 14:19 | US_ITS ---
PROCEDURE: US TRANSVAGINAL CLINICAL INDICATION: IUD surveillance COMPARISON: No exams were available for comparison FINDINGS: UTERUS: 7cm x 4cmx 3cm with a combined endometrial thickness of 4.2mm LEFT OVARY: [id number] with a volume of 7.7ml. There is an IUD in place seated in the mid to upper aspect of the endometrial canal. The ovaries have a polycystic appearance. No dominant cyst evident. No cul-de-sac fluid. IMPRESSION: IUD appears to be in good position. Dictated by: Antonio Wakefield MD 11/15/2020 10:42 Antonio Wakefield MD in [place] 11/15/2020 10:42
== END ==
PROVIDERS: PCP Family Medicine; Visit Provider Nurse Practitioner Obstetrics & Gynecology
DX: Z30.431 Encounter for routine checking of intrauterine contraceptive device (principal)
CPT/HCPCS: 76830

== ENCOUNTER 2020-11-27 19:16 | Emergency (ER) | payer MEDICAID, SELFPAY ==
[2020-11-27 19:20] VITALS: BP 133/85; PULSE 84; RESP 18; TEMP 37; O2SAT 99; BMI 25.5
--- NOTE | 2020-11-27 20:11 | HMH.EDUTC ---
[facility] [place] Clinical Impression: Acute bronchitis Qualifiers: Bronchitis organism: unspecified organism Qualified Code(s): J20.9 - Acute bronchitis, unspecified Disposition: Home, Self-Care Condition on Discharge: Good Instructions: DI for Acute Bronchitis Additional Instructions: Drink plenty of fluids. Take tylenol or ibuprofen for pain or fever. Take the medications as directed. Follow up with your regular doctor. GO TO THE ER FOR ANY WORSENING SYMPTOMS Prescriptions: Promethazine/Dextromethorphan [Promethazine-Dm Syrup] 5 ml PO Q6HP PRN #240 syrup PRN Reason: Cough Transmission Status: Received by [id number] predniSONE [Prednisone 20mg Tab] 20 mg PO BID 4 Days #8 tab Transmission Status: Received by [id number] Azithromycin [Z-Bill 250mg Tab*] 250 mg PO UD DOSE PK #6 tab Transmission Status: Received by [id number] Referrals: Joni Esposito [Primary Care Provider] - Forms: Work/School Release Time of Disposition: 20:13 Medical Decision Making - Medical Records Medical records reviewed: No: I reviewed the patient's medical records. - Paresh Inquiry Pt receiving controlled substance: No Vital Signs: 11/27/20 19:20 11/27/20 20:15 Temperature 98.6 F 98.6 F Temperature Source Oral Pulse Rate 84 Pulse Rate [Right Brachial] 84 Respiratory Rate 18 18 Blood Pressure 133/85 Blood Pressure [Right Arm] 133/85 Blood Pressure Mean [Right Arm] 101 Blood Pressure Source [Right Arm] Automatic Cuff Blood Pressure Position [Right Arm] Sitting 02 Sat by Pulse Oximetry 99 Oxygen Delivery Method Room Air [facility] [place] HPI - General Stated complaint: congested, scratchy throat, cough Time Seen by Provider: 11/27/20 20:11 Mode of Arrival: Ambulatory Source of Information: Patient Limitations: No Limitations Description of Symptoms (Recalled from Triage Doc. by RN): PATIENT C/O CHEST CONGESTION, SCRATCHY THROAT, AND BODY ACHES THAT STARTED YESTERDAY HEENT Symptoms (Recalled from RN notes): Yes Resp Symptoms (Recalled from RN notes): No Skin Symptoms (Recalled from RN notes): No MS Symptoms (Recalled from RN notes): No Functional Status (Recalled from RN notes): WNL - History of Present Illness Provider Complaint: She reports that for the past 2 days she has had a cough, chest congestion and sinus congestion. She works at [place], but she had a negative covid test there yesterday. - Related Data Home Medications Medication Instructions Recorded Confirmed hydroxyzine pamoate 25 mg capsule 25 mg PO cap 09/26/20 09/26/20 pantoprazole 40 mg tablet,delayed mg PO 09/26/20 09/26/20 release sucralfate 1 gram tablet 1 g PO tab 09/26/20 09/26/20 Previous Rx's Medication Instructions Recorded citalopram 10 mg tablet 10 mg PO DAILY #30 tab 08/15/20 Azithromycin [Z-Bill 250mg Tab*] 250 mg PO UD DOSE PK #6 tab 11/27/20 Promethazine/Dextromethorphan 5 ml PO Q6HP PRN #240 syrup 11/27/20 [Promethazine-Dm Syrup] predniSONE [Prednisone 20mg 20 mg PO BID 4 Days #8 tab 11/27/20 Tab] Allergies Allergy/AdvReac Type Severity Reaction Status Date / Time amoxicillin [From Augmentin] Allergy Verified 11/07/20 09:44 clavulanic acid Allergy Verified 11/07/20 09:44 [From Augmentin] Penicillins Allergy Verified 11/07/20 09:44 - Worker's Comp Is this a Worker's Comp case?: No [facility] History - Hepatitis A Screen Drug use history?: No High risk sexual behaviors?: No History of sexually transmitted infection?: No Currently employed?: No Childcare worker?: No Do you have indoor plumbing?: Yes Do you have electricity?: Yes Attestation statement:: This patient has been screened for Hepatitis A risk factors. I have reviewed the patient's past medical history: Yes Medical History: Reports:: Anxiety, Depression Laterality Cases: Bilateral: Tonsillectomy Other Surgeries: Yes: No Previous Surgery. No: Amputation: N
[2020-11-27 20:15] VITALS: BP 133/85; PULSE 84; RESP 18; TEMP 37; O2SAT 99
== END 2020-11-27 20:19 | disposition home or self-care (01) ==
PROVIDERS: Emergency Provider Nurse Practitioner Family; PCP Family Medicine
DX: J20.9 Acute bronchitis, unspecified (principal); F41.8 Other specified anxiety disorders; Z88.0 Allergy status to penicillin
CPT/HCPCS: 99202; G0463

== ENCOUNTER 2021-02-05 10:24 | Emergency (ER) | payer MEDICAID, SELFPAY ==
[2021-02-05 10:40] VITALS: BP 113/77; PULSE 72; RESP 16; TEMP 36.7; O2SAT 100; BMI 23.3
--- NOTE | 2021-02-05 11:28 | HMH.EDUTC ---
[facility] [place] Clinical Impression: Left ear impacted cerumen Disposition: Home, Self-Care Condition on Discharge: Good Instructions: Cerumen Impaction Additional Instructions: Don't insert q-tips past the outer opening of you ears. Use the prescribed ear drops as directed. Follow up with your primary care doctor. GO TO THE ER FOR ANY WORSENING SYMPTOMS. Prescriptions: Ondansetron [Zofran 4mg ODT] 4 mg PO Q8HP PRN #20 tab.rapdis PRN Reason: Nausea Transmission Status: Received by [facility] Neomycin/Polymyxin B Sulf/Hc [Hgbecseh-Slplhznwy-GV Otic Susp 10mL] 3 drops EAR-LEFT TID 7 Days #1 bottle Transmission Status: Received by [facility] Referrals: Sea Gambino MD [Primary Care Provider] - Time of Disposition: 11:32 Medical Decision Making - Medical Records Medical records reviewed: No: I reviewed the patient's medical records. - Paresh Inquiry Pt receiving controlled substance: No Vital Signs: 02/05/21 10:40 02/05/21 11:38 Temperature 98.1 F 98 F Temperature Source Oral Pulse Rate 73 Pulse Rate [Left] 72 Respiratory Rate 16 16 Blood Pressure 112/71 Blood Pressure [Right Arm] 113/77 Blood Pressure Mean [Right Arm] 89 02 Sat by Pulse Oximetry 100 Oxygen Delivery Method Room Air [facility] [place] - General Stated complaint: muffled hearing lt ear Time Seen by Provider: 02/05/21 10:50 Mode of Arrival: Ambulatory Source of Information: Patient Limitations: No Limitations Description of Symptoms (Recalled from Triage Doc. by RN): pt states she has muffled hearing in her L ear. she says she had swimmers ear a few weeks ago and thinks it has progressed. HEENT Symptoms (Recalled from RN notes): Yes (difficulty hearing on L side) Resp Symptoms (Recalled from RN notes): No Skin Symptoms (Recalled from RN notes): No MS Symptoms (Recalled from RN notes): No Functional Status (Recalled from RN notes): na - History of Present Illness Provider Complaint: She states that she has had decreased hearing in her left ear for the past 2 weeks. - Related Data Home Medications Medication Instructions Recorded Confirmed hydroxyzine pamoate 25 mg capsule 25 mg PO cap 09/26/20 09/26/20 pantoprazole 40 mg tablet,delayed mg PO 09/26/20 09/26/20 release sucralfate 1 gram tablet 1 g PO tab 09/26/20 09/26/20 Previous Rx's Medication Instructions Recorded citalopram 10 mg tablet 10 mg PO DAILY #30 tab 08/15/20 Azithromycin [Z-Bill 250mg Tab*] 250 mg PO UD DOSE PK #6 tab 11/27/20 Promethazine/Dextromethorphan 5 ml PO Q6HP PRN #240 syrup 11/27/20 [Promethazine-Dm Syrup] predniSONE [Prednisone 20mg 20 mg PO BID 4 Days #8 tab 11/27/20 Tab] Neomycin/Polymyxin B Sulf/Hc 3 drops EAR-LEFT TID 7 Days #1 02/05/21 [Ssnkuslf-Oonbulkku-SZ Otic Susp bottle 10mL] Ondansetron [Zofran 4mg ODT] 4 mg PO Q8HP PRN #20 tab.rapdis 02/05/21 Allergies Allergy/AdvReac Type Severity Reaction Status Date / Time amoxicillin [From Augmentin] Allergy Verified 02/05/21 10:52 clavulanic acid Allergy Verified 02/05/21 10:52 [From Augmentin] Penicillins Allergy Verified 02/05/21 10:52 - Worker's Comp Is this a Worker's Comp case?: No [facility] History - Hepatitis A Screen Drug use history?: No High risk sexual behaviors?: No History of sexually transmitted infection?: No Currently employed?: No Childcare worker?: No Do you have indoor plumbing?: Yes Do you have electricity?: Yes Attestation statement:: This patient has been screened for Hepatitis A risk factors. I have reviewed the patient's past medical history: Yes Medical History: Reports:: Anxiety, Depression Laterality Cases: Bilateral: Tonsillectomy Other Surgeries: Yes: No Previous Surgery. No: Amputation: No Fractures: No - Social History Smoking Status: Unknown if ever smoked Tobacco Type: cigarettes # Packs/Day (cigarettes): 1 Alcohol Intake: never Alcohol Intake Fr
[2021-02-05 11:38] VITALS: BP 112/71; PULSE 73; RESP 16; TEMP 36.6
== END 2021-02-05 11:45 | disposition home or self-care (01) ==
PROVIDERS: Emergency Provider Nurse Practitioner Family; PCP Family Medicine
DX: H61.22 Impacted cerumen, left ear (principal); Z88.0 Allergy status to penicillin; F41.8 Other specified anxiety disorders
CPT/HCPCS: 99202; G0463

== ENCOUNTER 2021-02-14 20:13 | Emergency (ER) | payer MEDICAID, SELFPAY ==
[2021-02-14 20:15] VITALS: BP 157/98; PULSE 90; RESP 16; TEMP 36.9; O2SAT 99; BMI 23.3
--- NOTE | 2021-02-14 20:21 | ECG_ITS ---
APPROVED REPORT Exam: Resting ECG HR:83 bpm ECG Measurements Heart Rate 83 AXES RI 142 P 59 QRSd 78 QRS 60 QT 338 T 44 QTc 397 Conclusion Normal sinus rhythm Normal ECG Electronically signed by : Prem Grant, 02/16/2021 15:21:41
--- NOTE | 2021-02-14 20:30 | XR_ITS ---
PROCEDURE INFORMATION: Exam: XR Chest Exam date and time: 02/14/2021 8:30 PM Age: 20 years old Clinical indication: Other: Irregular heart rate; Additional info: Irregular hr TECHNIQUE: Imaging protocol: XR of the chest. Views: 1 view. COMPARISON: No relevant prior studies available. FINDINGS: Lungs: Unremarkable. No consolidation. Pleural spaces: Unremarkable. No pleural effusion. No pneumothorax. Heart/Mediastinum: Unremarkable. No cardiomegaly. Bones/joints: Unremarkable. IMPRESSION: No acute findings.
[2021-02-14 20:42] LABS: Basophils # 0.1 K/mm3 (0-0.2); Basophils % 0.9 % (0.1-2.0); Eosinophils # 0.2 K/mm3 (0.0-0.4); Eosinophils % 2.2 % (0.1-12.0); Hematocrit 43.6 % (37.0-47.0); Hemoglobin 15.2 g/dL (12.2-16.2); Lymphocytes # 2.9 K/mm3 (0.7-4.5); Lymphocytes % 29.9 % (10-50); Mean Corpuscular HGB Conc 34.8 g/dL (31.8-35.4); Mean Corpuscular Volume 86.1 fl (81-99); Mean Platelet Volume 9.2 fl (7.4-10.4); Monocytes # 0.4 K/mm3 (0.1-1.0); Monocytes % 3.8 % (1.7-9.3); Neutrophils # 6.2 K/mm3 (1.8-7.8); Neutrophils % 63.2 % (37.0-80.0); Platelet Count 172 K/mm3 (142-424); Red Blood Count 5.07 M/mm3 (4.20-5.40); White Blood Count 9.8 K/mm3 (4.8-10.8)
[2021-02-14 20:49] LABS: Alanine Aminotransferase 20 U/L (12-78); Albumin Level 4.9 g/dl (3.5-5.0); Albumin/Globulin Ratio 1.7 (1.1-1.8); Alkaline Phosphatase 57 U/L (38-126); Anion Gap 12.9 mEq/L (5-15); Aspartate Amino Transferase 22 U/L (14-36); Blood Urea Nitrogen 17 mg/dl (7-17); Calcium 9.4 mg/dl (8.4-10.2); Carbon Dioxide 23 mmol/L (22.0-30.0); Chloride 106 mmol/L (98-107); Creatinine Clearance Estimated 102 mL/min (50-200); Estimated Glomerular Filt Rate 78 ml/min (>60); GFR (African American) 95 ML/MIN (>60); Globulin 2.9 g/dL (1.3-3.2); Glucose 83 mg/dl (74-100); Potassium 3.9 mmoL/L (3.5-5.1); Sodium 138 mmol/L (136-145); Total Protein,Serum 7.8 g/dl (6.3-8.2)
[2021-02-14 20:54] LABS: C-Reactive Protein 1.6 mg/L (0-4)
[2021-02-14 21:00] VITALS: BP 145/94; PULSE 91; RESP 17; O2SAT 99
[2021-02-14 21:06] LABS: Erythrocyte Sedimentation Rate 13 mm/hr (0-20); Procalcitonin 0.048 ng/mL (0.0-2.0)
[2021-02-14 21:07] LABS: Troponin I < 0.01 ng/ml (0.00-0.034)
--- NOTE | 2021-02-14 21:28 | CT_ITS ---
PROCEDURE INFORMATION: Exam: CTA Chest With Contrast Exam date and time: 02/14/2021 9:28 PM Age: 20 years old Clinical indication: Shortness of breath; Additional info: SOA TECHNIQUE: Imaging protocol: Computed tomographic angiography of the chest with contrast. 3D rendering (Not supervised by radiologist): MIP and/or 3D reconstructed images were created by the technologist. Radiation optimization: All CT scans at this facility use at least one of these dose optimization techniques: automated exposure control; mA and/or kV adjustment per patient size (includes targeted exams where dose is matched to clinical indication); or iterative reconstruction. Contrast material: ISOVUE 370; Contrast volume: 70 ml; Contrast route: INTRAVENOUS (IV); COMPARISON: CR XR CHEST PORTABLE 02/14/2021 8:51 PM FINDINGS: Pulmonary arteries: Normal. No pulmonary emboli. Aorta: Unremarkable. No aortic aneurysm. No aortic dissection. Lungs: Unremarkable. No consolidation. No masses. Pleural spaces: Unremarkable. No pneumothorax. No pleural effusion. Heart: Unremarkable. No cardiomegaly. No pericardial effusion. Lymph nodes: Unremarkable. No enlarged lymph nodes. Bones/joints: Unremarkable. No acute fracture. Soft tissues: Unremarkable. IMPRESSION: No acute findings.
--- NOTE | 2021-02-14 21:34 | HMH.EDARPALP ---
ED Disposition Clinical Impression: Palpitations Disposition: Home, Self-Care Condition on Discharge: Good Instructions: DI for Palpitations Additional Instructions: see card in am Referrals: Provider,Referral, [Primary Care Provider] - - Critical Care Critical Care Time: No Attestation: On 02/14/21, the high probability of a clinically significant, sudden or life threatening deterioration of the following system(s) required my full and direct attention, intervention and personal management. The time I documented below is in addition to time spent performing reported procedures but includes the following listed in this critical care notation. Medical Decision Making - Medical Records Medical records reviewed: Yes: I reviewed the patient's medical records. - Paresh Inquiry Pt receiving controlled substance: No Vital Signs: 02/14/21 20:15 02/14/21 21:00 02/14/21 22:00 Temperature 98.4 F Temperature Source Oral Pulse Rate 91 H 75 Pulse Rate [Right] 90 Respiratory Rate 16 17 16 Blood Pressure 145/94 H 148/94 H Blood Pressure [Right Arm] 157/98 H Blood Pressure Mean 111 112 Blood Pressure Mean [Right Arm] 117 02 Sat by Pulse Oximetry 99 99 97 - Lab Data Lab results reviewed: Yes: I reviewed the patient's lab results. Lab Results 02/14/21 20:32: ESR 13 02/14/21 20:32: Troponin I < 0.01, C-Reactive Protein 1.6, Procalcitonin 0.048 02/14/21 20:32: WBC 9.8, RBC 5.07, Hgb 15.2, Hct 43.6, MCV 86.1, MCH 30.0, MCHC 34.8, RDW 14.0, Plt Count 172, MPV 9.2, Neut % (Auto) 63.2, Lymph % (Auto) 29.9, Evangeline % (Auto) 3.8, Eos % (Auto) 2.2, Baso % (Auto) 0.9, Neut # (Auto) 6.2, Lymph # (Auto) 2.9, Evangeline # (Auto) 0.4, Eos # (Auto) 0.2, Baso # (Auto) 0.1 02/14/21 20:32: Sodium 138, Potassium 3.9, Chloride 106, Carbon Dioxide 23, Anion Gap 12.9, BUN 17, Creatinine 0.90, Estimated Creat Clear 102, Estimated GFR 78, Est GFR ( Amer) 95, Glucose 83, Calcium 9.4, Total Bilirubin 1.0, AST 22, ALT 20, Alkaline Phosphatase 57, Total Protein 7.8, Albumin 4.9, Globulin 2.9, Albumin/Globulin Ratio 1.7 02/14/21 20:32: TSH 0.62, Thyroxine (T4) 6.3 02/14/21 20:32: Serum HCG, Qual Negative Result diagrams: 02/14/21 20:32 02/14/21 20:32 Orders (Tests/Meds): ED MEDICATIONS Generic Name Dose Route Start Last Admin Trade Name Freq PRN Reason Stop Dose Admin Sodium Chloride 1,000 mls @ 999 mls/hr 02/14/21 21:30 02/14/21 21:34 Sod Chlor 0.9% 1000ml Bag IV 02/14/21 22:30 999 mls/hr .Q1H1M [place] Administration Discontinued Medications Generic Name Dose Route Start Last Admin Trade Name Freq PRN Reason Stop Dose Admin Iopamidol 70 ml 02/14/21 22:33 02/14/21 22:33 Iopamidol-370 (76%);100ml Bottle IV 02/14/21 22:34 70 ml ONCE ONE Administration Sodium Chloride 10 ml 02/14/21 22:33 02/14/21 22:33 Sodium Chloride 0.9% 10ml Syr (Rad Only) IV 02/14/21 22:34 10 ml ONCE ONE Administration ORDERS Category Date Time Status Troponin I Q3H Lab 02/14/21 23:45 Ordered Troponin I Q3H Lab 02/15/21 02:45 Ordered - Radiology Data #1 Image(s): Chest Image Reviewed: Yes I have reviewed radiologist's interpretation Preliminary Findings: Normal/NAD - CT Data CT Scan: Chest Time Received: 23:[address] Reviewed: Yes: I have viewed the radiologist's interpretation Preliminary Findings: Normal/NAD - ECG Data Tracing #1 Normal Sinus Rhythm: Yes Ischemic changes: non-specific ST-T wave changes Medical Decision Narrative: will ask pt to see card in am for follow up Arrhythmia/Palpitations HPI - General Chief Complaint: Arrhythmia/Palpitations Stated Complaint: feels like heart skipping a beat Time Seen by Provider: 02/14/21 21:00 Mode of Arrival: Ambulatory Source of Information: Patient, Medical Record Limitations: No Limitations - History of Present Illness HPI narrative: palpitations and irreg beats x 24 hrs with assoc sob but no chest pain - MD
[2021-02-14 21:50] LABS: T4 (Thyroxine) 6.3 ug/dl (5.53-11.0)
[2021-02-14 22:00] VITALS: BP 148/94; PULSE 75; RESP 16; O2SAT 97
[2021-02-14 22:03] LABS: Thyroid Stimulating Hormone 0.62 uIU/mL (0.465-4.68)
[2021-02-14 22:13] LABS: HCG Qualitative, Serum Negative (Negative)
[2021-02-14 23:00] VITALS: BP 127/74; PULSE 94; RESP 22; O2SAT 98
[2021-02-14 23:18] VITALS: BP 127/74; PULSE 79; RESP 20; TEMP 36.9; O2SAT 98
== END 2021-02-14 23:20 | disposition home or self-care (01) ==
PROVIDERS: Emergency Provider Emergency Medicine
DX: R00.2 Palpitations (principal); F41.8 Other specified anxiety disorders; F17.210 Nicotine dependence, cigarettes, uncomplicated
CPT/HCPCS: 71045; 71275; 80053; 84145; 84436; 84443; 84484; 84703; 85025; 85651; 86140; 93005; 96365; 99283; Q9967

== ENCOUNTER 2021-03-13 20:16 | Emergency (ER) | payer MEDICAID, SELFPAY ==
--- NOTE | 2021-03-13 22:02 | HMH.EDUTC ---
[facility] [place] Clinical Impression: Exposure to COVID-19 virus Disposition: Home, Self-Care Condition on Discharge: Good Instructions: Preventing the Spread of Coronavirus Discharge Instructions Additional Instructions: Drink plenty of fluids. Take tylenol for pain or fever. Return if you begin to have difficulty breathing. Follow up with your regular doctor. GO TO THE ER FOR ANY WORSENING SYMPTOMS Quarantine until you know the results of your covid-19 test. If it is positive, the health department should call you and give you further instructions about your length of Quarantine and other thing. Referrals: Provider,Referral, [Primary Care Provider] - Forms: Work/School Release Time of Disposition: 22:04 Medical Decision Making - Medical Records Medical records reviewed: No: I reviewed the patient's medical records. - Paresh Inquiry Pt receiving controlled substance: No Vital Signs: 03/13/21 22:30 Temperature 0 F L Pulse Rate 0 L Respiratory Rate 0 L Blood Pressure 0/0 L [facility] [place] - General Stated complaint: covid tested Time Seen by Provider: 03/13/21 22:02 - History of Present Illness Provider Complaint: Her daughter has been exposed to covid-19 and began to have symptoms yesterday. 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 - Related Data Home Medications Medication Instructions Recorded Confirmed No Known Home Medications 02/15/21 Allergies Allergy/AdvReac Type Severity Reaction Status Date / Time amoxicillin [From Augmentin] Allergy Verified 02/15/21 09:34 clavulanic acid Allergy Verified 02/15/21 09:34 [From Augmentin] Penicillins Allergy Verified 02/15/21 09:34 [facility] History - Hepatitis A Screen Attestation statement:: This patient has been screened for Hepatitis A risk factors. I have reviewed the patient's past medical history: Yes Medical History: Reports:: Anxiety, Depression, Palpitations Laterality Cases: Bilateral: Tonsillectomy Other Surgeries: Yes: No Previous Surgery. No: Amputation: No Fractures: No - Social History Smoking Status: Current every day smoker Tobacco Type: cigarettes # Packs/Day (cigarettes): 1 Alcohol Intake: never Alcohol Intake Frequency:: holidays/special occasions only Substance Use Type: denies use Occupational Status: employed Housing: house - Psychiatric History Pschychiatric History:: Reports:: Anxiety, Depression Family Hx:: Coronary Artery Disease, Heart Attack, Thyroid Disorder ROS Obtained: Yes All systems reviewed & no additional complaints - Constitutional Constitutional: Reports system reviewed and no additional complaints, except as docu - Eyes Eyes: Reports system reviewed and no additional complaints, except as docu - ENT Ears, Nose, Mouth, and Throat: Reports system reviewed and no additional complaints, except as docu - Cardiovascular Cardiovascular: Reports system reviewed and no additional complaints, except as docu - Respiratory Respiratory: Reports system reviewed and no additional complaints, except as docu - Gastrointestinal Gastrointestingal: Reports: system reviewed and no additional complaints, except as docu Physical Exam - General General appearance: alert, in no apparent distress - Head Head exam: atraumatic, normocephalic, normal inspection - Eye Eye exam: Present: normal appearance, PERRL, EOMI - ENT ENT exam: Present: normal exam, normal oropharynx, mucous membranes moist, TM's normal bilaterally, normal external ear exam - Neck Neck exam: Present: normal inspection, full ROM, trachea midline. Absent: meningismus, lymphadenopathy - Chest Chest inspection: Present: normal inspection, symmetric chest wall rise. Absent: tenderness - Respiratory Respiratory exam: Present: normal lung sounds bilaterally.
[2021-03-13 22:30] VITALS: BP 0/0; PULSE 0; RESP 0; TEMP -17.7; TEMP 0
== END 2021-03-13 22:30 | disposition home or self-care (01) ==
PROVIDERS: Emergency Provider Nurse Practitioner Family
DX: Z20.822 Contact with and (suspected) exposure to COVID-19 (principal); F41.8 Other specified anxiety disorders; F17.210 Nicotine dependence, cigarettes, uncomplicated; Z88.0 Allergy status to penicillin
CPT/HCPCS: 99202; G0463; U0003

== ENCOUNTER → 2021-03-22 12:18 | Outpatient (CLI) | payer MEDICAID, SELFPAY ==
[2021-03-22 15:04] LABS: HCG,Quantitative < 2 mIU/ml (0-5.42)
== END ==
PROVIDERS: Visit Provider Nurse Practitioner Obstetrics & Gynecology
DX: Z34.90 Encounter for supervision of normal pregnancy, unspecified, unspecified trimester (principal)
CPT/HCPCS: 36415; 84702

== ENCOUNTER → 2021-05-13 11:31 | Outpatient (CLI) | payer MEDICAID, SELFPAY | PROVIDERS: Visit Provider Nurse Practitioner | DX: Z20.822 Contact with and (suspected) exposure to COVID-19 (principal) | CPT/HCPCS: C9803; U0003; U0005 ==

== ENCOUNTER 2021-05-22 15:11 | Emergency (ER) | payer MEDICAID, SELFPAY ==
[2021-05-22 16:45] VITALS: BP 141/89; PULSE 85; RESP 20; TEMP 37.1; O2SAT 100; BMI 23.8
[2021-05-22 16:50] VITALS: BMI 37.9
--- NOTE | 2021-05-22 16:50 | XR_ITS ---
PROCEDURE INFORMATION: Exam: XR Abdomen Exam date and time: 05/22/2021 4:50 PM Age: 21 years old Clinical indication: Abdominal pain; Localized; Left; Additional info: Constipation TECHNIQUE: Imaging protocol: XR of the abdomen. Views: Frontal supine view of the abdomen. 1 View. COMPARISON: CR XR CHEST PORTABLE 02/14/2021 8:51 PM FINDINGS: Tubes, catheters and devices: An intrauterine device is present. Gastrointestinal tract: The bowel gas pattern is nonobstructive and nonspecific. A large amount of stool is noted throughout the colon. Bones/joints: Unremarkable. IMPRESSION: 1. The bowel gas pattern is nonobstructive and nonspecific. 2. A large amount of stool is noted throughout the colon.
--- NOTE | 2021-05-22 17:29 | HMH.EDUTC ---
[facility] [place] Disposition Clinical Impression: Constipation Qualifiers: Constipation type: unspecified constipation type Qualified Code(s): K59.00 - Constipation, unspecified Disposition: Home, Self-Care Condition on Discharge: Good Instructions: Constipation, DI for Constipation Additional Instructions: Drink plenty of fluids. Drink apple for other fruit juices daily. Increase your fiber in your diet. Also, start taking the fiber gumies that we prescribed. Follow up with your regular doctor. GO TO THE ER FOR ANY WORSENING SYMPTOMS Prescriptions: Inulin [Fiber Gummies] 1 unit PO DAILY 30 Days #30 tab Transmission Status: Received by [facility] polyethylene glycoL 3350 [Miralax Powder] 17 gm PO DAILYP PRN #119 gm PRN Reason: Constipation Transmission Status: Received by [facility] Referrals: Provider,Referral, [Primary Care Provider] - Forms: Work/School Release Time of Disposition: 17:38 Medical Decision Making - Medical Records Medical records reviewed: No: I reviewed the patient's medical records. - Paresh Inquiry Pt receiving controlled substance: No Vital Signs: 05/22/21 16:45 05/22/21 17:41 Temperature 98.7 F 98.7 F Temperature Source Oral Pulse Rate 85 Pulse Rate [Right Brachial] 85 Respiratory Rate 20 20 Blood Pressure 141/89 H Blood Pressure [Right Arm] 141/89 H Blood Pressure Mean [Right Arm] 106 Blood Pressure Source [Right Arm] Automatic Cuff Blood Pressure Position [Right Arm] Sitting 02 Sat by Pulse Oximetry 100 Oxygen Delivery Method Room Air [facility] [place] HPI - General Stated complaint: constipated 05/18/21 Time Seen by Provider: 05/22/21 17:33 Mode of Arrival: Ambulatory Source of Information: Patient Limitations: No Limitations Description of Symptoms (Recalled from Triage Doc. by RN): PATIENT C/O CONSTIPATION X 4 DAYS WITH NAUSEA AND INTERMITTEN PAIN TO LEFT SIDE. HAS HX OF CONSTIPATION SINCE OF SON SIOBHAN Symptoms (Recalled from RN notes): No Resp Symptoms (Recalled from RN notes): No Skin Symptoms (Recalled from RN notes): No MS Symptoms (Recalled from RN notes): No Functional Status (Recalled from RN notes): WNL - History of Present Illness Provider Complaint: She states that for the past several months, she has had frequent issues with constipation. She has not been taking any otc stool softeners or laxatives. She denies abdominal pain at this time. - Related Data Previous Rx's Medication Instructions Recorded Inulin [Fiber Gummies] 1 unit PO DAILY 30 Days #30 tab 05/22/21 polyethylene glycoL 3350 [Miralax 17 gm PO DAILYP PRN #119 gm 05/22/21 Powder] Allergies Allergy/AdvReac Type Severity Reaction Status Date / Time amoxicillin [From Augmentin] Allergy Verified 02/15/21 09:34 clavulanic acid Allergy Verified 02/15/21 09:34 [From Augmentin] Penicillins Allergy Verified 02/15/21 09:34 - Worker's Comp Is this a Worker's Comp case?: No [facility] History - Hepatitis A Screen Drug use history?: No High risk sexual behaviors?: No History of sexually transmitted infection?: No Currently employed?: No Childcare worker?: No Do you have indoor plumbing?: Yes Do you have electricity?: Yes Attestation statement:: This patient has been screened for Hepatitis A risk factors. I have reviewed the patient's past medical history: Yes Medical History: Reports:: Anxiety, Depression, Palpitations Laterality Cases: Bilateral: Tonsillectomy Other Surgeries: Yes: No Previous Surgery. No: Amputation: No Fractures: No - Social History Smoking Status: Current every day smoker Tobacco Type: cigarettes # Packs/Day (cigarettes): 1 Alcohol Intake: never Alcohol Intake Frequency:: holidays/special occasions only Substance Use Type: denies use Occupational Status: employed Housing: house - Psychiatric History Pschychiatric History:: Reports:: Anxiety, Depression Family Hx:: Coronary Artery Disease, Hear
[2021-05-22 17:41] VITALS: BP 141/89; PULSE 85; RESP 20; TEMP 37.1; O2SAT 100
== END 2021-05-22 17:46 | disposition home or self-care (01) ==
PROVIDERS: Emergency Provider Nurse Practitioner Family
DX: K59.00 Constipation, unspecified (principal); F41.8 Other specified anxiety disorders; R00.2 Palpitations; F17.210 Nicotine dependence, cigarettes, uncomplicated
CPT/HCPCS: 74018; 99202; G0463

== ENCOUNTER → 2021-06-24 16:33 | Outpatient (CLI) | payer MEDICAID, SELFPAY ==
[2021-06-26 21:15] LABS: Neisseria gonorrhoeae, NAA Negative (Negative)
== END ==
PROVIDERS: Visit Provider Nurse Practitioner Obstetrics & Gynecology
DX: Z72.51 High risk heterosexual behavior (principal)
CPT/HCPCS: 87491; 87591

== ENCOUNTER 2021-06-26 10:13 | Emergency (ER) | payer MEDICAID, SELFPAY ==
[2021-06-26 11:05] VITALS: BP 142/89; PULSE 91; RESP 22; TEMP 36.8; O2SAT 99; BMI 24.0
[2021-06-26 11:39] LABS: UTC Strep Screen (Rapid) Negative (Negative)
--- NOTE | 2021-06-26 11:43 | HMH.EDUTC ---
[facility] – [place], [place] Disposition Clinical Impression: Viral upper respiratory illness Disposition: Home, Self-Care Condition on Discharge: Good Instructions: DI for Viral Upper Respiratory Infection -- Adult Additional Instructions: *Monitor Temp, Over the counter Motrin or Tylenol as directed/as needed Tylenol every 4 hours and Motrin every 6 hours (as long as your family doctor has told you that you can take it) for fever or pain. and straight to ER if unable to lower temp less than 101.0 after medication given *Warm salt water gargles may help to soothe the throat *Throat Lozenges *Warm fluids like tea with honey may help to soothe the throat *Sleep elevated *Humidifier/Vaporizer *Flonase 2 sprays in each nostril daily but be aware that it may take 2-3 days before you notice improvement *Bromfed may cause drowsiness. Know how it effects you (your child) before driving, caring for small child, or sending your child to school. Not other antihistamines/allergy medications while taking bromfed Your throat swab was sent for culture. Those results are typically sent to your primary care. Be sure to follow up in 2-3 days with your family doctor/primary care physician if no improvement so they can review those result and treat if necessary. If you don?t have a primary care doctor, I recommend you get one but in the mean time, you will have to return to a walk in clinic Follow up IMMEDIATELY for new or worsening symptoms or no Noticeable improvement over the next 48-72 hours. 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 C Vit D and Zinc if you can take them Prescriptions: Brompheniramine/Pseudoephed/Dm [Bromfed Dm Cough Syrup] 5 - 10 ml PO Q46H PRN #250 ml PRN Reason: Cough Transmission Status: Pending to [facility] Fluticasone Propionate [Flonase 50mcg nasal spray 16gm] 1 spr NS DAILY #1 each Transmission Status: Pending to [facility] Referrals: Provider,Referral, MD [Primary Care Provider] - As needed Forms: Work/School Release Time of Disposition: 11:58 Medical Decision Making - Parseh Inquiry Pt receiving controlled substance: No Paresh was queried for this patient: No Vital Signs: 06/26/21 11:05 Temperature 98.3 F Temperature Source Oral Pulse Rate [Right Brachial] 91 H Respiratory Rate 22 Blood Pressure [Right Arm] 142/89 H Blood Pressure Mean [Right Arm] 106 Blood Pressure Source [Right Arm] Automatic Cuff Blood Pressure Position [Right Arm] Sitting 02 Sat by Pulse Oximetry 99 Oxygen Delivery Method Room Air - Lab Data Lab results reviewed: Yes: I reviewed the patient's lab results. Lab Results 06/26/21 11:20: Strep Scn Rapid Clinic Negative Orders (Tests/Meds): ORDERS Category Date Time Status Covid-19 Nasal PCR ([facility]) Routine Lab 06/26/21 11:12 Received Strep Screen Confirmation Stat Micro 06/26/21 11:20 Received [facility] UTC HPI - General Stated complaint: sore throat, cough, congestion Time Seen by Provider: 06/26/21 11:44 Mode of Arrival: Ambulatory Source of Information: Patient Limitations: No Limitations Description of Symptoms (Recalled from Triage Doc. by RN): PATIENT C/O FATIGUE, SORE THROAT, AND CHEST CONGESTION SINCE THURSDAY. EXPOSED TO COVID LAST WEEK HEENT Symptoms (Recalled from RN notes): Yes Resp Symptoms (Recalled from RN notes): No Skin Symptoms (Recalled from RN notes): No MS Symptoms (Recalled from RN notes): No Functional Status (Recalled from RN notes): WNL - Histo
[2021-06-26 12:00] VITALS: BP 142/89; PULSE 91; RESP 22; TEMP 36.8; O2SAT 99
== END 2021-06-26 12:07 | disposition home or self-care (01) ==
PROVIDERS: Emergency Provider Nurse Practitioner
DX: J06.9 Acute upper respiratory infection, unspecified (principal); F41.8 Other specified anxiety disorders; Z20.822 Contact with and (suspected) exposure to COVID-19; Z88.0 Allergy status to penicillin
CPT/HCPCS: 87880; 99203; C9803; G0463; U0003; U0005

== ENCOUNTER 2023-12-05 12:17 | Observation (INO) | payer SELFPAY ==
[2023-12-05 12:17] VITALS: BP 146/88; PULSE 126; RESP 17; TEMP 36.5; O2SAT 100; BMI 24.2
--- NOTE | 2023-12-05 12:18 | ECG_ITS ---
APPROVED REPORT Exam: Resting ECG HR:109 bpm ECG Measurements Heart Rate 109 AXES MN 158 P 72 QRSd 70 QRS 73 QT 293 T 23 QTc 357 Conclusion SINUS TACHYCARDIA NONSPECIFIC ST & T-WAVE ABNORMALITY ABNORMAL RHYTHM ECG UNCONFIRMED REPORT Electronically signed by : Sahil Zaragoza, 12/05/2023 14:40:24
--- NOTE | 2023-12-05 12:21 | PC.NURSE ---
Dr. Zaragoza at bedside
--- NOTE | 2023-12-05 12:34 | ED_ITS ---
Discharge Plan Disposition Patient Disposition: Admitted Prescriptions Prescriptions: No Action valacyclovir [Valtrex] 1 gram tablet 1,000 mg PO BID 7 Days Qty: 14 0RF hydroxyzine HCl 50 mg tablet 50 mg PO Referrals Follow up/Referrals: Chip Tran MD [Staff Physician] - See instructions Provider,MD Suman [Primary Care Provider] - See instructions Activity Restrictions/Add. Instructions Additional Instructions/Restrictions: No definitive emergent medical condition identified today. Most likely your elevated heart rate secondary to fluid losses from diarrhea. This is most likely infectious in nature. A comprehensive GI PCR panel has been sent we will call you back if it is positive for anything specifically that would require antibiotic therapy such as C. difficile colitis. No evidence of any cardiopulmonary emergency. Of note your BNP is moderately elevated out of proportion to what I would expect a normal . While this is nonspecific and could represent underlying structural heart disease and for this reason I would like for you to follow-up closely with our employment specialist to have a more comprehensive echo performed and evaluation of the heart. Please call first thing on Thursday and be evaluated next valve appointment. Clinical Impressions Clinical Impression: Tachycardia, Chest pain, Diarrhea, of unknown anatomic location, Gilbert's disease, Elevated brain natriuretic peptide (BNP) level Discharge ED Provider: Suzette Zaragoza HPI General Chief Complaint: Chest Pain Stated Complaint: Elevated HR, CP, diarrhea Time Seen by Provider: 12/05/23 12:19 Mode of Arrival: Ambulatory Source of Information: Patient Limitations: No Limitations Description of Symptoms (Recalled from ER Triage Doc. by RN): pt presents to ED with c/o chest pain. pt reports she was seen at [facility] yesterday for same issue. pt reports no findings las tnight at ER but symptoms persist. pt reports diarrhea and being 4-5 weeks . History of Present Illness HPI narrative: Patient is a 23-year-old female present to the emergency department with numerous complaints. She is a A2 at 5 weeks gestational age by dates presenting today primarily with chest pain and diarrhea. She states this is been ongoing for several days and she was recently at [facility] where she was told she had a normal troponin and a beta-hCG level of 1000. No ultrasound was performed. She states she has had some mild dyspnea associate with this. No significant lower extremity swelling unilateral leg swelling prolonged mobilizations hemoptysis fevers or chills. 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 She has some mild lower abdominal discomfort however no significant vaginal bleeding or loss of fluids. She has not had any passage of tissue as well. She states that she was in her normal state of health yesterday when she took a 12.5 mg tablet of Benadryl as needed for sleep and allergies and woke up feeling this way. She is been sick since that time with significant and persistent tachycardia. Related Data Home Medications Medication Instructions Recorded Confirmed hydroxyzine HCl 50 mg tablet 50 mg PO 12/05/21 07/24/22 Previous Rx's Medication Instructions Recorded valacyclovir 1 gram tablet 1,000 mg PO BID 7 days #14 tabs 07/24/22 (Valtrex) Allergies Allergy/AdvReac Type Severity Reaction Status Date / Time amoxicillin [From Augmentin] Allergy Verified 07/24/22 14:56 clavulanic acid Allergy Verified 07/24/22 14:56 [From Augmentin] Penicillins Allergy Verified 07/24/22 14:56 [facility] Disclaimer: The information contained in this section may have been updated after the patient was seen, as this information can be updated by other users. Medical History Herpes simplex of female genitalia Tobacco dependence syndrome Surgical History Hx of dilation and curettage Hx of tonsillectomy Social History Smoking Status: Current every day smoker tobacco type: e-cigarettes second hand exposure: Yes alcohol intake: current alcohol intake frequency: holidays/special occasions only substance use type: denies use current occupational status: other Travel in the last 8 weeks: None housing: house ROS Obtained: Yes All systems reviewed & no additional complaints except as documented Physical Exam General General appearance: alert and in no apparent distress Respiratory Respiratory exam: Present normal lung sounds bilaterally; Absent respiratory distress Cardiovascular Cardiovascular exam: Present normal rhythm and tachycardia Abdominal Exam Abdominal exam: Present soft; Absent distention or tenderness Neurological Exam Neurological exam: Present alert and oriented X3 HEART Score HEART Score HEART Score assessment performed?: Yes History (anamnesis): Slightly suspicious ECG: Non-specific disturbance Age: <45 years Risk factors: No known risk factors Troponin: </= normal limit HEART Score: 1 Procedures Miscellaneous Procedure Procedure Performed: Limited OB ultrasound Indication: Positive test Identified structures: [-Uterus -Left adnexa -Right adnexa -Pouch of Cosme] Findings: Uterus: No definitive IUP Right adnexa: No free fluid Left adnexa: No free fluid Cul de sac: Free fluid absent Impression: No definitive IUP cannot rule out ectopic Images were saved to permanent archive The study was technically adequate CPT Transabdominal: 68310-42 This study was performed by mo, and I personally interpreted all images/videos. Based on my clinical judgement, these images were adequate and did not necessitate further imaging. Limited cardiac ultrasound Indication: Chest pain Identified structures: The heart was visualized in the parasternal long axis, parastenal short axis, apical four chamber and subxyphiod views. The IVC was visualized in the short axis and long axis at its entry into the right atrium. Findings: No evidence of moderate or severely depressed LVEF no significant right heart strain no pericardial effusion IVC is less than 2 cm with normal respirophasic variation Impression: Normal limited bedside ultrasound of the heart Images were saved to permanent archive The study was technically adequate CPT: 77336-32 This study was performed by mo, and I personally interpreted all images/videos. Based on my clinical judgement, these images were adequate and did not necessitate further imaging. Critical Care Critical Care Time Critical Care Time: Yes Attestation: On 12/05/23, the high probability of a clinically significant, sudden or life threatening deterioration of the following system(s) required my full and direct attention, intervention and personal management. The time I documented below is in addition to time spent performing reported procedures but includes the following listed in this critical care notation. Total Time Total Critical Care Time: 35 Medical Decision Making Paresh Inquiry Pt receiving controlled substance: No Vital Signs Vital Signs: 12/05/23 12:17 12/05/23 13:00 Temperature 97.7 F Temperature Source Oral Pulse Rate 102 H Pulse Rate [Left Radial] 126 H Respiratory Rate 17 16 Blood Pressure 132/76 Blood Pressure [Right Arm] 146/88 H Blood Pressure Mean [Right Arm] 107 02 Sat by Pulse Oximetry 100 99 Oxygen Delivery Method Room Air Room Air Lab Data Lab results reviewed: Yes I reviewed the patient's lab results. Labs: Lab Results 12/05/23 12:22: WBC 9.4, RBC 4.78, Hgb 14.4, Hct 44.1, MCV 92.2, MCH 30.1, MCHC 32.7, RDW 13.8, Plt Count 240, MPV 8.5, Neut % (Auto) 78.8, Lymph % (Auto) 17.1, Clay % (Auto) 3.0, Eos % (Auto) 0.4, Baso % (Auto) 0.8, Neut # (Auto) 7.4, Lymph # (Auto) 1.6, Clay # (Auto) 0.3, Eos # (Auto) 0.0, Baso # (Auto) 0.1, D-Dimer 0.27, Sodium 139, Potassium 3.3 L, Chloride 108 H, Carbon Dioxide 20 L, Anion Gap 14.3, BUN 3 L, Creatinine 0.60, Estimated Creat Clear 145, Estimated GFR 122, Est GFR ( Amer) 147, Glucose 105 H, Calcium 9.8, Magnesium 2.0, T otal Bilirubin 2.0 H, AST 26, ALT 20, Alkaline Phosphatase 52, Troponin I < 0.01, NT-Pro-B Natriuret Pep 423 H, Total Protein 8.7 H, Albumin 5.1 H, Globulin 3.6 H, Albumin/Globulin Ratio 1.4, HCG, Quant 2023 H, SARS-CoV-2 (PCR) Not detected, Influenza A Untype (PCR) Not detected, Influenza Type B (PCR) Not detected 12/05/23 12:22 12/05/23 12:22 Response Orders (Tests/Meds): ED MEDICATIONS Generic Name Dose Route Start Last Admin Trade Name Freq PRN Reason Stop Dose Admin Lactated Ringer's 1,000 mls @ 100 mls/hr 12/05/23 14:00 Lactated Ringer's 1000 Ml Bag IV 01/04/24 13:59 .Q10H SALENA Discontinued Medications Generic Name Dose Route Start Last Admin Trade Name Freq PRN Reason Stop Dose Admin Acetaminophen 1,000 mg 12/05/23 12:29 12/05/23 12:38 Acetaminophen 1,000mg/100ml Vial IV 12/05/23 12:30 1,000 mg ONCE ONE Administration Lactated Ringer's 1,000 mls @ 999 mls/hr 12/05/23 12:30 12/05/23 12:38 Lactated Ringer's 1000 Ml Bag IV 12/05/23 13:30 999 mls/hr .Q1H1M SALENA Administration Ondansetron HCl 4 mg 12/05/23 12:29 12/05/23 12:38 Ondansetron 4mg/2ml Vial IV 12/05/23 12:30 4 mg ONCE ONE Administration ORDERS Category Date Time Status Chest XR 2 view (NOT portable) [XR chest 2V] Stat Exams 12/05/23 13:21 Taken POCUS Point of Care (ER Only) Stat Exams 12/05/23 12:24 Completed POCUS Point of Care (ER Only) Stat Exams 12/05/23 13:21 Completed BNP [NT Pro Brain Natriuretic Pep.] Stat Lab 12/05/23 12:22 Completed Beta HCG, Quant [HCG,Quantitative] Stat Lab 12/05/23 12:22 Completed CBC w/Auto Diff [Complete Blood Count Auto Diff] Stat Lab 12/05/23 12:22 Completed CMP [Comprehensive Metabolic Panel] Stat Lab 12/05/23 12:22 Completed Complete Blood Count Auto Diff AMLAB Lab 12/06/23 06:00 Ordered Comprehensive Metabolic Panel AMLAB Lab 12/06/23 06:00 Ordered D-Dimer Stat Lab 12/05/23 12:22 Completed Diarrhea 23 Panel, PCR Stat Lab 12/05/23 12:52 Received Full Resp Panel w/COVID ([facility]) Routine Lab 12/05/23 13:55 Ordered Magnesium AMLAB Lab 12/06/23 06:00 Ordered Magnesium Stat Lab 12/05/23 12:22 Completed Rapid PCR Covid and Flu A/B Stat Lab 12/05/23 12:22 Completed Trop I [Troponin I] Stat Lab 12/05/23 12:22 Completed Troponin I Q3H Lab 12/05/23 15:45 Ordered Troponin I Q3H Lab 12/05/23 18:45 Ordered US OB transvaginal Stat Ultrasound 12/05/23 13:43 Ordered ECG Data Tracing #1: Attestation: I reviewed this ECG and interpreted as documented below: ECG Narrative: Ventricular rate of 109 sinus tachycardia no acute ischemic changes noted there is normal axis poor baseline on EKG but no definitive ST changes no obvious and significant conduction abnormality MDM Narrative Medical Decision Narrative: 23-year-old female 5 weeks by gestational age presenting today after an ED visit last night where she was told she had a quantitative beta-hCG of 1000. Limited bedside ultrasound was performed I do not see an obvious intrauterine cannot rule out ectopic in this particular case of she has a of unknown anatomic location. Regarding all the rest of her symptoms most likely viral in nature however could be pulmonary embolism, myocarditis, C. difficile colitis etc. Will get basic blood work administer IV fluids Tylenol Zofran and reassess. Reassessment patient's heart rate has improved to 100 she has remained on the monitor has had a few what she describes as episodes but has only had sinus tachycardia on telemetry. No evidence of any type of significant arrhythmia. Patient's D-dimer is within normal limits no further workup of pulmonary embolism indicated. Troponin undetectably low. This suggests against a diagnosis of myocarditis. However patient does have an elevated BNP at 423. While nonspecific this is elevated out of proportion to what I would expect in a normal . For this reason I did limited bedside ultrasound of her heart which did not yield a significant obvious abnormality and structural heart disease such as severely depressed EF etc. I will recommend that she follow-up closely outpatient with cardiology she certainly describes some symptoms and with this finding that could represent underlying structural heart disease. This was explained to her in depth and she understands. She was able to give us a stool sample we will call her back with results. Labs are otherwise unremarkable she still feels fatigued at the moment. She does have a mildly elevated bilirubin at 2.0 which is consistent with her Gilbert's syndrome. Reassessment 2 PM patient's quantitative beta-hCG is 2000 which is above the discriminatory zone that we used in the emergency department to evaluate for transabdominal presence of a gestational sac which is typically seen 80% the time it 1500. However this is below the a cog accepted discriminatory zone. Given the doubling time of this most likely normal or viable intrauterine but we will get a transvaginal ultrasound to further evaluate this. There is significant diagnostic uncertainty as the patient remains symptomatic feels very weak persistently tachycardic to 110 at this time despite IV fluids. Overall I still favor that this is a viral etiology and more comprehensive viral respiratory panel has been sent stool studies are pending I discussed the case with Dr. Divya Carroll and Colin Gutierrez and ultimately we will keep the patient under observation status with Dr. Gutierrez. The patient is aware that there are no echo services on the weekend and that if she feels better overnight that she will likely go home tomorrow. Patient was admitted for further evaluation and management.
[2023-12-05 12:36] LABS: Coronavirus 19, PCR Not Detected (NotDetected); Influenza A, PCR Not Detected (NotDetected); Influenza B, PCR Not Detected (NotDetected)
[2023-12-05 12:38] LABS: Basophils # 0.1 K/mm3 (0-0.2); Basophils % 0.8 % (0.1-2.0); Eosinophils % 0.4 % (0.1-12.0); Hematocrit 44.1 % (37.0-47.0); Hemoglobin 14.4 g/dL (12.2-16.2); Lymphocytes # 1.6 K/mm3 (0.7-4.5); Lymphocytes % 17.1 % (10-50); Mean Corpuscular HGB Conc 32.7 g/dL (31.8-35.4); Mean Corpuscular Hemoglobin 30.1 pg (27.0-31.2); Mean Corpuscular Volume 92.2 fl (81-99); Mean Platelet Volume 8.5 fl (7.4-10.4); Monocytes # 0.3 K/mm3 (0.1-1.0); Neutrophils # 7.4 K/mm3 (1.8-7.8); Neutrophils % 78.8 % (37.0-80.0); Platelet Count 240 K/mm3 (142-424); Red Blood Count 4.78 M/mm3 (4.20-5.40); Red Cell Distribution Width 13.8 % (11.5-17.5); White Blood Count 9.4 K/mm3 (4.8-10.8)
[2023-12-05] MEDS: LACTATED RINGERS 1000ML 1,000 ML 999 ML IV (12:38)
[2023-12-05] MEDS: ONDANSETRON 4MG/2ML VIAL 4 MG IV ×2 (12:38→18:24)
[2023-12-05] MEDS: ACETAMINOPHEN 1,000MG/100ML VIAL 1000 MG IV (12:38)
[2023-12-05 12:41] LABS: Chloride 108 mmol/L (98-107); Potassium 3.3 mmoL/L (3.5-5.1); Sodium 139 mmol/L (136-145)
[2023-12-05 12:44] LABS: Alanine Aminotransferase 20 U/L (12-78); Albumin Level 5.1 g/dl (3.5-5.0); Albumin/Globulin Ratio 1.4 (1.1-1.8); Alkaline Phosphatase 52 U/L (38-126); Anion Gap 14.3 mEq/L (5-15); Aspartate Amino Transferase 26 U/L (14-36); Blood Urea Nitrogen 3 mg/dl (7-17); Calcium 9.8 mg/dl (8.4-10.2); Carbon Dioxide 20 mmol/L (22.0-30.0); Creatinine Clearance Estimated 145 mL/min (50-200); Estimated Glomerular Filt Rate 122 ml/min (>60); GFR (African American) 147 ML/MIN (>60); Globulin 3.6 g/dL (1.3-3.2); Glucose 105 mg/dl (74-100); Total Protein,Serum 8.7 g/dl (6.3-8.2)
[2023-12-05 12:49] LABS: D-Dimer 0.27 ug/mL (0.0-0.5)
[2023-12-05 12:54] LABS: NT Pro Brain Natriuretic Pep. 423 pg/mL (0-125)
[2023-12-05 12:57] LABS: Adenovirus F 40/41, stool Not Detected (NotDetected); Astrovirus Not Detected (NotDetected); Campylobacter Not Detected (NotDetected); Clostridium Difficile A/B, PCR Not Detected (NotDetected); Cryptosporidium Not Detected (NotDetected); Cyclospora Cayetanesis Not Detected (NotDetected); Entamoeba histolytica Not Detected (NotDetected); Enteroaggregative E coli Not Detected (NotDetected); Enteropathogenic E coli Not Detected (NotDetected); Enterotoxigenic E coli Not Detected (NotDetected); Giardia lamblia Not Detected (NotDetected); Plesimonas Shigalloides, PCR Not Detected (NotDetected); Rotavirus A Not Detected (NotDetected); Salmonella, PCR Not Detected (NotDetected); Sapovirus Not Detected (NotDetected); Shiga-like toxin E coli Not Detected (NotDetected); Shigella Enterovasive E coli Not Detected (NotDetected); Vibrio Cholerae Not Detected (NotDetected); Vibrio, PCR Not Detected (NotDetected); Yersinia Entercolitica, PCR Not Detected (NotDetected)
[2023-12-05 12:57] LABS: Troponin I < 0.01 ng/ml (0.00-0.034)
[2023-12-05 13:00] VITALS: BP 132/76; PULSE 102; RESP 16; O2SAT 99
--- NOTE | 2023-12-05 13:21 | XR_ITS ---
PROCEDURE INFORMATION: Exam: XR Chest Exam date and time: 12/05/2023 1:22 PM Age: 23 years old Clinical indication: Dyspnea; Sternal or substernal pain; Patient HX: PT ; Shielded for exam; Additional info: Cp/dyspnea TECHNIQUE: Imaging protocol: Radiologic exam of the chest. Views: 2 views. COMPARISON: CT ANGIO CHEST PE PROTOCOL 02/14/2021 10:29 PM FINDINGS: Tubes, catheters and devices: EKG leads. Lungs: Unremarkable. No consolidation. Pleural spaces: Unremarkable. No pleural effusion. No pneumothorax. Heart/Mediastinum: Unremarkable. No cardiomegaly. Bones/joints: Unremarkable. IMPRESSION: No acute findings.
[2023-12-05 13:22] LABS: HCG,Quantitative 2024 mIU/ml (0-5.42)
--- NOTE | 2023-12-05 13:30 | PC.NURSE ---
pt to xray
--- NOTE | 2023-12-05 13:35 | PC.NURSE ---
pt back from xray
--- NOTE | 2023-12-05 13:39 | PC.NURSE ---
Dr. Zaragoza at bedside
--- NOTE | 2023-12-05 13:43 | US_ITS ---
PROCEDURE INFORMATION: Exam: US , Transvaginal Exam date and time: 12/05/2023 2:32 PM Age: 23 years old Clinical indication: Lmp or gestational age (in weeks): 4w6d; Antepartum complications; Other: Abd discomfort; ; Additional info: Hcg 2,000, abd pain location? LABS AND CLINICAL REPORTS: Last menstrual period start date: 11/03/2023 Gestational age (Established): 4 w 4 d Estimated due date (Established): 08/09/2024 TECHNIQUE: Imaging protocol: Real-time transvaginal obstetrical ultrasound of the maternal pelvis with image documentation. Transvaginal imaging was used for better evaluation of the fetus, adnexa, and/or cervix. COMPARISON: US TRANSVAGINAL 11/13/2020 2:52 PM FINDINGS: Gestation: Anechoic structure in the uterine fundal endometrial cavity measures 4 x 3 x 5 mm, and is typical of an early gestational sac. No pole or yolk sac demonstrated. BIOMETRY: Gestational age (AUA): 4 w 6 d by mean sac diameter. Estimated due date (AUA): 08/07/2024 by mean sac diameter. Mean sac diameter: 0.38 cm. MATERNAL: Right ovary/adnexa: Right ovary measures 4.53 cm x 3.97 cm x 3.44 cm. Right ovarian volume is 32.39 mL. 2.3 x 2.6 x 2.7 cm right ovarian cyst with internal debris. Left ovary/adnexa: Left ovary measures 2.55 cm x 1.49 cm x 1.56 cm. Left ovarian volume is 3.1 mL. Free fluid: Small amount of simple appearing fluid adjacent to the right ovary and in the posterior pelvic cul-de-sac. IMPRESSION: 1. Anechoic structure in the uterine fundal endometrial cavity measures 4 x 3 x 5 mm, and is typical of an early gestational sac. No pole or yolk sac demonstrated. Unable to confirm or exclude a viable gestation or ectopic at this time. Correlation with beta-hCG values and ultrasound followup is recommended. 2. 2.3 x 2.6 x 2.7 cm right ovarian cyst with internal debris. Potential early corpus luteum cyst. Correlation with beta-hCG values and ultrasound followup is recommended. 3. Small amount of simple appearing fluid adjacent to the right ovary and in the posterior pelvic cul-de-sac.
--- NOTE | 2023-12-05 13:44 | PC.NURSE ---
pt reports her OB is Dr. Nilson Fair @ [facility].
--- NOTE | 2023-12-05 13:45 | PC.NURSE ---
Dr. Zaragoza s/w Dr. Carroll
--- NOTE | 2023-12-05 13:46 | PC.NURSE ---
Radiology notified of transvaginal u/s order. States u/s tech is already on their way in and will let them know in person the order.
--- NOTE | 2023-12-05 13:49 | PC.NURSE ---
Dr. Zaragoza s/w Dr. Gutierrez for possible admission.
--- NOTE | 2023-12-05 13:51 | PC.NURSE ---
pt giving barrier cream and instructions on use.
--- NOTE | 2023-12-05 13:55 | PC.NURSE ---
House notified of admission.
--- NOTE | 2023-12-05 13:57 | P.HP_ITS ---
History of Present Illness *Admission Date: 12/05/23 *Reason for visit:: fast heart rate, diarrhea *History of present illness: Mr. hogan 23-year-old female who is 5 weeks . Presents to the ER because of complaint of some chest discomfort, tachycardia, diarrhea. Reports she was just seen at [facility] yesterday for the same issue. Was negative for heart attack, beta-hCG of thousand, was discharged home. On presentation today, found to be tachycardic. Initial troponin negative. BNP elevated at approximately 400. Beta hCG has doubled in 24 hours. On presentation she has multiple complaints. She is a A2 at 5 weeks gestational age by dates presenting today primarily with chest pain and diarrhea. States the chest discomfort is been going on for couple days. Diarrhea just began last night. Has had some sick contacts at work. Denies any blood in vomit or stool. No elaine emesis today. Trying to stay hydrated. Afebrile. Does have some diffuse abdominal pain. No significant vaginal bleeding. No shortness of breath or confusion. Is somewhat anxious. Eval in the ER with bedside ultrasound and transvaginal ultrasound. Did not appear to have cardiomegaly and structures were grossly normal on bedside ultrasound with her heart. Chest x-ray showed normal cardiac silhouette. No focal consolidation or airspace disease on chest imaging. Diarrhea panel pending. Respiratory panel pending. Given her persistent tachycardia, hypokalemia, and unclear etiology of her BNP, medicine was consulted for admission and further management. On arrival to the floor, she feeling little bit better after IV fluids. Heart rate 85-105, sinus rhythm. On room air. [facility] Disclaimer: The information contained in this section may have been updated after the patient was seen, as this information can be updated by other users. Medical History Herpes simplex of female genitalia Tobacco dependence syndrome Surgical History Hx of dilation and curettage Hx of tonsillectomy Social History Smoking Status: Current every day smoker tobacco type: e-cigarettes second hand exposure: Yes alcohol intake: current alcohol intake frequency: holidays/special occasions only substance use type: denies use current occupational status: other Travel in the last 8 weeks: None housing: house Review of Systems Review of Systems Review of systems (narrative): 14 point review of systems performed, pertinent positives and negatives as per HPI Meds Home Medications and Allergies Home Medications Medication Instructions Recorded Confirmed Type vitamin no.180-ferrous 1 tab PO DAILY 12/05/23 12/05/23 History fumarate 27 mg-folic acid 1 mg tablet ( Plus Vitamin-Mineral) New Prescriptions to Start Prescriptions: Allergies Allergy/AdvReac Type Severity Reaction Status Date / Time amoxicillin [From Augmentin] Allergy Verified 07/24/22 14:56 clavulanic acid Allergy Verified 07/24/22 14:56 [From Augmentin] Penicillins Allergy Verified 07/24/22 14:56 Exam Data for Last 24 hours Vital signs and Labs for Last 24 Hours: Temp Pulse Resp BP Pulse Ox O2 Del Method 97.7 F 102 H 16 132/76 99 Room Air 12/05/23 12:17 12/05/23 13:00 12/05/23 13:00 12/05/23 13:00 12/05/23 13:00 12/05/23 13:00 Laboratory Results - last 24 hr 12/05/23 12:22: WBC 9.4, RBC 4.78, Hgb 14.4, Hct 44.1, MCV 92.2, MCH 30.1, MCHC 32.7, RDW 13.8, Plt Count 240, MPV 8.5, Neut % (Auto) 78.8, Lymph % (Auto) 17.1, [place] % (Auto) 3.0, Eos % (Auto) 0.4, Baso % (Auto) 0.8, Neut # (Auto) 7.4, Lymph # (Auto) 1.6, [place] # (Auto) 0.3, Eos # (Auto) 0.0, Baso # (Auto) 0.1, D-Dimer 0.27, Sodium 139, Potassium 3.3 L, Chloride 108 H, Carbon Dioxide 20 L, Anion Gap 14.3, BUN 3 L, Creatinine 0.60, Estimated Creat Clear 145, Estimated GFR 122, Est GFR ( Amer) 147, Glucose 105 H, Calcium 9.8, Magnesium 2.0, Total Bilirubin 2.0 H, AST 26, ALT 20, Alkaline Phosphatase 52, Troponin I < 0.01, NT-Pro-B Natriuret Pep 423 H, Total Protein 8.7 H, Albumin 5.1 H, Globulin 3.6 H, Albumin/Globulin Ratio 1.4, HCG, Quant 2023 H, SARS-CoV-2 (PCR) Not detected, Influenza A Untype (PCR) Not detected, Influenza Type B (PCR) Not detected I & O for Last 24 hours: Intake & Output 12/02/23 12/03/23 12/04/23 12/05/23 23:59 23:59 23:59 23:59 Weight 63.957 kg Constitutional Constitutional: no acute distress and average body habitus *Routine HEENT Exam Head: Present normocephalic Eye: Present EOMI and PERRL ENT: Present mucous membranes moist *Routine Neck Exam Neck: Present supple; Absent lymphadenopathy *Routine Respiratory Exam Respiratory: Present CTA bilaterally *Routine Cardiovascular Exam Cardiovascular: Present tachycardia Comments: Regular rhythm *Routine Abdominal Exam Abdominal: Present soft and tenderness; Absent normoactive bowel sounds Comments: Hyperactive bowel sounds, mild diffuse tenderness. *Routine Rectal Exam Rectal:: deferred *Routine Genitalia Exam Genitalia:: deferred *Routine Extremities Exam Extremities: Absent cyanosis, clubbing or edema *Routine Skin Exam Skin: Present warm; Absent rash *Routine Neurological Exam Neurological: Present alert, oriented X3, altered mental status and moving all extremities Assessment and Plan *Assessment and plan (1) Enteritis due to Norovirus: Status: Acute Category: Medical Code(s): A08.11 - Acute gastroenteropathy due to [place] agent (2) Tachycardia: Status: Acute Category: Medical Code(s): R00.0 - Tachycardia, unspecified (3) Elevated brain natriuretic peptide (BNP) level: Status: Acute Category: Medical Code(s): R79.89 - Other specified abnormal findings of blood chemistry (4) of unknown anatomic location: Status: Acute Category: Medical Code(s): O36.80X0 - with inconclusive viability, not applicable or unspecified (5) Diarrhea: Status: Acute Category: Medical Code(s): R19.7 - Diarrhea, unspecified (6) Anxiety: Status: Acute Category: Medical Code(s): F41.9 - Anxiety disorder, unspecified (7) Hypokalemia: Status: Acute Category: Medical Code(s): E87.6 - Hypokalemia Plan 23-year-old female with onset of diarrhea and tachycardia. Had similar symptoms 2 weeks ago. Found to have some hyponatremia. Concern for persistent tachycardia. Discussed case with ER, request admission for observation given persistent tachycardia, setting of , unknown diagnosis at time of call for admission. Medicine agreed to admit for further management. GI panel was returned positive for norovirus. Will observe overnight and hydrate, monitor for improvement in heart rate. Further discussion in the morning about keeping patient inpatient for cardiology eval versus close outpatient follow-up and further workup. Problems addressed as follows: Norovirus enteritis Tachycardia -Diarrhea panel positive for norovirus. Zofran 4 mg IV as needed every 8 hours for nausea. -Responded to bolus in the ER. Continue maintenance fluids with LR at 100 cc an hour. - Potassium low at 3.3. Will replace with 20 mEq 3 times a day p.o. -Repeat CBC, CMP, magnesium ordered for the morning. -Contact cautions for norovirus -Tachycardia suspected secondary to dehydration. Reviewed chest x-ray, heart silhouette normal, does not have any cardiomegaly. Bedside ultrasound performed in the ER appears grossly normal. -Unclear the significance of elevated BNP of approximately 400. Repeat ordered for the morning. 5 weeks gestation, beta-hCG 2000. Transvaginal ultrasound shows half centimeter nodule presumed to be gestational. Too early to tell if it is viable. Will need to follow-up with gynecology in the coming weeks. Full code Regular diet [place], medical score 0. Indication for anticoagulation
[2023-12-05 14:17] LABS: Adenovirus,PCR Not Detected (NotDetected); Bordetella Pertussis Not Detected (NotDetected); Chlamydophila Pneumoniae, PCR Not Detected (NotDetected); Coronavirus 19, PCR Not Detected (NotDetected); Coronavirus 229E Not Detected (NotDetected); Coronavirus NL63 Not Detected (NotDetected); Coronavirus OC43 Not Detected (NotDetected); Coronovirus HKU1,PCR Not Detected (NotDetected); Human Metapneumovirus Not Detected (NotDetected); Influenza A, PCR Not Detected (NotDetected); Influenza AH1, 2009 Not Detected (NotDetected); Influenza AH1, PCR Not Detected (NotDetected); Influenza AH3,PCR Not Detected (NotDetected); Influenza B, PCR Not Detected (NotDetected); Mycoplasma Pneumoniae, PCR Not Detected (NotDetected); Parainfluenza 1, PCR Not Detected (NotDetected); Parainfluenza 2, PCR Not Detected (NotDetected); Parainfluenza 3, PCR Not Detected (NotDetected); Parainfluenza 4, PCR Not Detected (NotDetected); Respiratory Syncytial Virus Not Detected (NotDetected); Rhinovirus/Enterovirus Not Detected (NotDetected)
[2023-12-05 14:25] VITALS: BP 134/94; PULSE 119; RESP 15; TEMP 36.8; O2SAT 99
--- NOTE | 2023-12-05 14:25 | PC.NURSE ---
arrived to floor by w/c from ED
--- NOTE | 2023-12-05 14:37 | HMH.PHAINT1 ---
Pharmacy Intervention Comments: MEDICATION RECONCILIATION COMPLETE USING EXTERNAL PHARMACY FILL HISTORY. CALLED TO VERIFY VIA PATIENT'S NURSE BIRDIE WHO SAID THE PATIENT ONLY RECENTLY STARTED A VITAMIN.
[2023-12-05 14:51] VITALS: BP 130/71; PULSE 94; RESP 22; TEMP 37; O2SAT 98; BMI 23.7
[2023-12-05 14:52] LABS: Norovirus Detected (NotDetected)
--- NOTE | 2023-12-05 14:54 | PC.NURSE ---
called second floor nurse to report norovirus results from stool.
[2023-12-05 16:00] VITALS: PULSE 100
[2023-12-05 16:11] LABS: Troponin I < 0.01 ng/ml (0.00-0.034)
--- NOTE | 2023-12-05 18:40 | PC.NURSE ---
pt c/o nausea and intermittent chest pain, md aware. hr in the 90s and will increase around 120 when ambulating. no other complaints at this time. cb within reach.
[2023-12-05 19:03] LABS: Troponin I < 0.01 ng/ml (0.00-0.034)
[2023-12-05 20:00] VITALS: BP 120/65; PULSE 100; PULSE 86; RESP 17; TEMP 37.1; O2SAT 98
[2023-12-05] MEDS: POTASSIUM CHLORIDE 20MEQ TAB 20 MEQ PO (20:53)
[2023-12-06] VITALS: BP 110/69; PULSE 81; PULSE 86; RESP 16; TEMP 37.1; O2SAT 99
[2023-12-06 04:00] VITALS: BP 107/60; PULSE 88; PULSE 94; RESP 17; TEMP 36.4; O2SAT 98; BMI 24.3
[2023-12-06] MEDS: LACTATED RINGERS 1000ML 1,000 ML 100 ML IV (04:12)
--- NOTE | 2023-12-06 04:42 | PC.NURSE ---
Pt is alert and oriented. Ambulated to the restroom. No complaints of nausea. Pt did complain of chest pain one time, notified Brandon HUDSON, pt NSR on tele, HR 88, no new orders at time. Pt has slept throughout the shift. Receiving LR @ 100. Significant other at bedside. Call light in reach.
[2023-12-06 07:29] VITALS: BP 113/67; PULSE 78; RESP 18; TEMP 36.5; O2SAT 98
[2023-12-06 07:34] LABS: Basophils # 0.1 K/mm3 (0-0.2); Mean Corpuscular Hemoglobin 30.5 pg (27.0-31.2); Mean Corpuscular Volume 90.5 fl (81-99); Monocytes # 0.2 K/mm3 (0.1-1.0)
[2023-12-06 07:43] LABS: Alanine Aminotransferase 14 U/L (12-78); Albumin Level 3.5 g/dl (3.5-5.0); Albumin/Globulin Ratio 1.4 (1.1-1.8); Alkaline Phosphatase 39 U/L (38-126); Aspartate Amino Transferase 18 U/L (14-36); Bilirubin,Total 1.6 mg/dl (0.2-1.3); Blood Urea Nitrogen 4 mg/dl (7-17); Calcium 8.4 mg/dl (8.4-10.2); Carbon Dioxide 21 mmol/L (22.0-30.0); Chloride 109 mmol/L (98-107); Creatinine Clearance Estimated 110 mL/min (50-200); Estimated Glomerular Filt Rate 87 ml/min (>60); GFR (African American) 106 ML/MIN (>60); Globulin 2.5 g/dL (1.3-3.2); Glucose 84 mg/dl (74-100); Magnesium 1.9 mg/dl (1.6-2.3); Sodium 137 mmol/L (136-145)
[2023-12-06 07:58] LABS: Eosinophils % 0.5 % (0.1-12.0); Lymphocytes % 35.3 % (10-50); Mean Corpuscular HGB Conc 33.6 g/dL (31.8-35.4); Mean Platelet Volume 9.1 fl (7.4-10.4); Neutrophils # 3.4 K/mm3 (1.8-7.8); Neutrophils % 60.2 % (37.0-80.0); Platelet Count 186 K/mm3 (142-424); Red Blood Count 3.87 M/mm3 (4.20-5.40); White Blood Count 5.7 K/mm3 (4.8-10.8)
--- NOTE | 2023-12-06 07:58 | EXP.DC.SUM ---
General Admission date:: 12/05/23 Discharge date: 12/06/23 HPI HPI HPI: Mr. hogan 23-year-old female who is 5 weeks . Presents to the ER because of complaint of some chest discomfort, tachycardia, diarrhea. Reports she was just seen at [facility] yesterday for the same issue. Was negative for heart attack, beta-hCG of thousand, was discharged home. On presentation today, found to be tachycardic. Initial troponin negative. BNP elevated at approximately 400. Beta hCG has doubled in 24 hours. On presentation she has multiple complaints. She is a A2 at 5 weeks gestational age by dates presenting today primarily with chest pain and diarrhea. States the chest discomfort is been going on for couple days. Diarrhea just began last night. Has had some sick contacts at work. Denies any blood in vomit or stool. No elaine emesis today. Trying to stay hydrated. Afebrile. Does have some diffuse abdominal pain. No significant vaginal bleeding. No shortness of breath or confusion. Is somewhat anxious. Eval in the ER with bedside ultrasound and transvaginal ultrasound. Did not appear to have cardiomegaly and structures were grossly normal on bedside ultrasound with her heart. Chest x-ray showed normal cardiac silhouette. No focal consolidation or airspace disease on chest imaging. Diarrhea panel pending. Respiratory panel pending. Given her persistent tachycardia, hypokalemia, and unclear etiology of her BNP, medicine was consulted for admission and further management. On arrival to the floor, she feeling little bit better after IV fluids. Heart rate 85-105, sinus rhythm. On room air. Hospital Course Hospital Course Hospital Course: 23-year-old female with onset of diarrhea and tachycardia. Had similar symptoms 2 weeks ago. Found to have some hyponatremia. Concern for persistent tachycardia. Discussed case with ER, request admission for observation given persistent tachycardia, setting of , unknown diagnosis at time of call for admission. Medicine agreed to admit for further management. GI panel was returned positive for norovirus. Observed overnight. Tolerated hydration. Doing well in the morning. Electrolytes normalized. Discussed case with civil celebrant, will have close follow-up in 2 days. Recommend close follow-up with cardiology. Problems addressed as follows: Norovirus enteritis Tachycardia -Diarrhea panel positive for norovirus. Zofran 4 mg IV as needed every 8 hours for nausea. Did well overnight with no further emesis. Diarrhea stable. Tolerated IV fluids. Tolerating p.o. intake as well. Electrolytes improving on morning. Potassium 3.4, magnesium 1.9. White cell count normal at 5.7. Patient has done well. Tachycardia better today. Concern for cam component of anxiety,, dehydration, . BNP was elevated 400 on admission, down to 200 this morning. Additionally patient has positive beta hCG of 2000 on admission. Transvaginal ultrasound showed half centimeter nodule presumed to be gestational however it was anechoic in nature. Differential diagnosis includes viable this early, molar . In light of patient's symptoms, I discussed case with gynecology. Repeat beta-hCG ordered for the morning. Will have follow-up at Thursday morning with Dr. Carroll in gynecology clinic for further evaluation and management. Stable to discharge home. Initiate hydroxyzine 25 mg as needed 3 times a day for anxiety Continue multivitamin Total time spent on discharge 32 minutes in counseling, documentation, chart review, and direct care with patient. Exam Data for Last 24 hours Vital signs and Labs for Last 24 Hours: Temp Pulse Resp BP Pulse Ox O2 Del Method 97.7 F 78 18 113/67 98 Room Air 12/06/23 07:29 12/06/23 07:29 12/06/23 07:29 12/06/23 07:29 12/06/23 07:29 12/06/23 07:29 Laboratory Results - last 24 hr 12/05/23 12:22: WBC 9.4, RBC 4.78, Hgb 14.4, Hct 44.1, MCV 92.2, MCH 30.1, MCHC 32.7, RDW 13.8, Plt Count 240, MPV 8.5, Neut % (Auto) 78.8, Lymph % (Auto) 17.1, [place] % (Auto) 3.0, Eos % (Auto) 0.4, Baso % (Auto) 0.8, Neut # (Auto) 7.4, Lymph # (Auto) 1.6, [place] # (Auto) 0.3, Eos # (Auto) 0.0, Baso # (Auto) 0.1, D-Dimer 0.27, Sodium 139, Potassium 3.3 L, Chloride 108 H, Carbon Dioxide 20 L, Anion Gap 14.3, BUN 3 L, Creatinine 0.60, Estimated Creat Clear 145, Estimated GFR 122, Est GFR ( Amer) 147, Glucose 105 H, Calcium 9.8, Magnesium 2.0, Total Bilirubin 2.0 H, AST 26, ALT 20, Alkaline Phosphatase 52, Troponin I < 0.01, NT-Pro-B Natriuret Pep 423 H, Total Protein 8.7 H, Albumin 5.1 H, Globulin 3.6 H, Albumin/Globulin Ratio 1.4, HCG, Quant 2023 H, SARS-CoV-2 (PCR) Not detected, Influenza A Untype (PCR) Not detected, Influenza Type B (PCR) Not detected 12/05/23 12:52: Stl Aeromonas (PCR) Not detected, Stl C. cayetanensis PCR Not detected, Stool Rotavirus (PCR) Not detected, Stl Adenov F 40/41 PCR Not detected, Stool Astrovirus (PCR) Not detected, Stool Campylobacter PCR Not detected, Stl C.difficile Tox PCR Not detected, Stool Cryptosporidium PCR Not detected, Stl E.coli Shiga Tox PCR Not detected, Stool E coli O157 PCR Not detected, Stl Enterotoxigenic E PCR Not detected, Stool EPEC (PCR) Not detected, Stool EAEC (PCR) Not detected, Stl E. histolytica PCR Not detected, Stool Giardia Lamblia PCR Not detected, Stool Salmonella PCR Not detected, Stool Sapovirus (PCR) Not detected, Stl P. shigelloides PCR Not detected, Stl Shigella/EIEC PCR Not detected, St Y.enterocolitica PCR Not detected, Stool Vibrio (PCR) Not detected, Stl Vibrio cholerae PCR Not detected, Stl Norovirus GI/GII PCR Detected A 12/05/23 14:15: Chlamy pneumoniae PCR Not detected, Adenovirus (PCR) Not detected, B. pertussis DNA (PCR) Not detected, Coronavirus OC43 (PCR) Not detected, Coronavirus HKU1 (PCR) Not detected, Coronavirus 229E (PCR) Not detected, SARS-CoV-2 (PCR) Not detected, Coronavirus NL63 (PCR) Not detected, Human Metapneumovir PCR Not detected, Influenza A (H1) PCR Not detected, Influ A (H1N1/09) PCR Not detected, Influenza A (H3) PCR Not detected, Influenza Type A (PCR) Not detected, Influenza Type B (PCR) Not detected, M. pneumoniae (PCR) Not detected, Parainfluenza 1 (PCR) Not detected, Parainfluenza 2 (PCR) Not detected, Parainfluenza 3 (PCR) Not detected, Parainfluenza 4 (PCR) Not detected, RSV (PCR) Not detected, Entero/Rhino (PCR) Not detected 12/05/23 15:35: Troponin I < 0.01 12/05/23 18:25: Troponin I < 0.01 12/06/23 06:41: Sodium 137, Chloride 109 H, Carbon Dioxide 21 L, BUN 4 L D, Creatinine 0.80 D, Estimated Creat Clear 110, Estimated GFR 87, Est GFR ( Amer) 106 D, Glucose 84, Calcium 8.4, Magnesium 1.9, Total Bilirubin 1.6 H, AST 18 D, ALT 14 D, Alkaline Phosphatase 39, Total Protein 6.0 L D, Albumin 3.5 D, Globulin 2.5, Albumin/Globulin Ratio 1.4 I & O for Last 24 hours: Intake & Output 12/03/23 12/04/23 12/05/23 12/06/23 23:59 23:59 23:59 23:59 Intake Total 360 / 360 1333 / 1333 Output Total 0 / 0 0 / 0 Balance 360 / 360 1333 / 1333 Weight 62.794 kg 64.682 kg Constitutional Constitutional: no acute distress and cooperative *Routine HEENT Exam Head: Present normocephalic Eye: Present EOMI and PERRL ENT: Present mucous membranes moist *Routine Neck Exam Neck: Present supple; Absent lymphadenopathy *Routine Respiratory Exam Respiratory: Present CTA bilaterally; Absent rhonchi, wheezes or crackles *Routine Cardiovascular Exam Cardiovascular: Present RRR *Routine Abdominal Exam Abdominal: Present soft and normoactive bowel sounds; Absent tenderness *Routine Rectal Exam Patient deferred: visual exam *Routine Exam Patient deferred: external exam *Routine Extremities Exam Extremities: Absent cyanosis, clubbing or edema *Routine Skin Exam Skin: Present warm; Absent rash *Routine Neurological Exam Neurological: Present alert, oriented X3 and moving all extremities; Absent altered mental status Results Data Completed and Pending Labs on day of discharge: Labs from last 24 hours 12/06/23 12/05/23 12/05/23 06:41 18:25 15:35 WBC RBC Hgb Hct MCV MCH MCHC RDW Plt Count MPV Neut % (Auto) Lymph % (Auto) [place] % (Auto) Eos % (Auto) Baso % (Auto) Neut # (Auto) Lymph # (Auto) [place] # (Auto) Eos # (Auto) Baso # (Auto) D-Dimer Sodium 137 Potassium Chloride 109 H Carbon Dioxide 21 L Anion Gap BUN 4 L D Creatinine 0.80 D Estimated Creat Clear 110 Estimated GFR 87 Est GFR ( Amer) 106 D Glucose 84 Calcium 8.4 Magnesium 1.9 Total Bilirubin 1.6 H AST 18 D ALT 14 D Alkaline Phosphatase 39 Troponin I < 0.01 < 0.01 NT-Pro-B Natriuret Pep Total Protein 6.0 L D Albumin 3.5 D Globulin 2.5 Albumin/Globulin Ratio 1.4 HCG, Quant Stl Aeromonas (PCR) Stl C. cayetanensis PCR Stool Rotavirus (PCR) Stl Adenov F 40/ PCR Stool Astrovirus (PCR) Stool Campylobacter PCR Stl C.difficile Tox PCR Stool Cryptosporidium PCR Stl E.coli Shiga Tox PCR Stool E coli O157 PCR Stl Enterotoxigenic E PCR Stool EPEC (PCR) Stool EAEC (PCR) Stl E. histolytica PCR Stool Giardia Lamblia PCR Stool Salmonella PCR Stool Sapovirus (PCR) Stl P. shigelloides PCR Stl Shigella/EIEC PCR St Y.enterocolitica PCR Stool Vibrio (PCR) Stl Vibrio cholerae PCR Stl Norovirus GI/GII PCR Chlamy pneumoniae PCR Adenovirus (PCR) B. pertussis DNA (PCR) Coronavirus OC43 (PCR) Coronavirus HKU1 (PCR) Coronavirus 229E (PCR) SARS-CoV-2 (PCR) Coronavirus NL63 (PCR) Human Metapneumovir PCR Influenza A (H1) PCR Influ A (H1N1/09) PCR Influenza A (H3) PCR Influenza Type A (PCR) Influenza A Untype (PCR) Influenza Type B (PCR) M. pneumoniae (PCR) Parainfluenza 1 (PCR) Parainfluenza 2 (PCR) Parainfluenza 3 (PCR) Parainfluenza 4 (PCR) RSV (PCR) Entero/Rhino (PCR) 12/05/23 12/05/23 12/05/23 14:15 12:52 12:22 WBC 9.4 RBC 4.78 Hgb 14.4 Hct 44.1 MCV 92.2 MCH 30.1 MCHC 32.7 RDW 13.8 Plt Count 240 MPV 8.5 Neut % (Auto) 78.8 Lymph % (Auto) 17.1 [place] % (Auto) 3.0 Eos % (Auto) 0.4 Baso % (Auto) 0.8 Neut # (Auto) 7.4 Lymph # (Auto) 1.6 [place] # (Auto) 0.3 Eos # (Auto) 0.0 Baso # (Auto) 0.1 D-Dimer 0.27 Sodium 139 Potassium 3.3 L Chloride 108 H Carbon Dioxide 20 L Anion Gap 14.3 BUN 3 L Creatinine 0.60 Estimated Creat Clear 145 Estimated GFR 122 Est GFR ( Amer) 147 Glucose 105 H Calcium 9.8 Magnesium 2.0 Total Bilirubin 2.0 H AST 26 ALT 20 Alkaline Phosphatase 52 Troponin I < 0.01 NT-Pro-B Natriuret Pep 423 H Total Protein 8.7 H Albumin 5.1 H Globulin 3.6 H Albumin/Globulin Ratio 1.4 HCG, Quant 2023 H Stl Aeromonas (PCR) Not detected Stl C. cayet[place]ensis PCR Not detected Stool Rotavirus (PCR) Not detected Stl Adenov F 40/41 PCR Not detected Stool Astrovirus (PCR) Not detected Stool Campylobacter PCR Not detected Stl C.difficile Tox PCR Not detected Stool Cryptosporidium PCR Not detected Stl E.coli Shiga Tox PCR Not detected Stool E coli O157 PCR Not detected Stl Enterotoxigenic E PCR Not detected Stool EPEC (PCR) Not detected Stool EAEC (PCR) Not detected Stl E. histolytica PCR Not detected Stool Giardia Lamblia PCR Not detected Stool Salmonella PCR Not detected Stool Sapovirus (PCR) Not detected Stl P. shigelloides PCR Not detected Stl Shigella/EIEC PCR Not detected St Y.enterocolitica PCR Not detected Stool Vibrio (PCR) Not detected Stl Vibrio cholerae PCR Not detected Stl Norovirus GI/GII PCR Detected A Chlamy pneumoniae PCR Not detected Adenovirus (PCR) Not detected B. pertussis DNA (PCR) Not detected Coronavirus OC43 (PCR) Not detected Coronavirus HKU1 (PCR) Not detected Coronavirus 229E (PCR) Not detected SARS-CoV-2 (PCR) Not detected Not detected Coronavirus NL63 (PCR) Not detected Human Metapneumovir PCR Not detected Influenza A (H1) PCR Not detected Influ A (H1N1/09) PCR Not detected Influenza A (H3) PCR Not detected Influenza Type A (PCR) Not detected Influenza A Untype (PCR) Not detected Influenza Type B (PCR) Not detected Not detected M. pneumoniae (PCR) Not detected Parainfluenza 1 (PCR) Not detected Parainfluenza 2 (PCR) Not detected Parainfluenza 3 (PCR) Not detected Parainfluenza 4 (PCR) Not detected RSV (PCR) Not detected Entero/Rhino (PCR) Not detected DS: Diagnosis Discharge Diagnosis (1) Enteritis due to Norovirus: Status: Acute Code(s): A08.11 - Acute gastroenteropathy due to [place] agent (2) Tachycardia: Status: Acute Code(s): R00.0 - Tachycardia, unspecified (3) Elevated brain natriuretic peptide (BNP) level: Status: Acute Code(s): R79.89 - Other specified abnormal findings of blood chemistry (4) of unknown anatomic location: Status: Acute Code(s): O36.80X0 - with inconclusive viability, not applicable or unspecified (5) Diarrhea: Status: Acute Code(s): R19.7 - Diarrhea, unspecified (6) Anxiety: Status: Acute Code(s): F41.9 - Anxiety disorder, unspecified (7) Hypokalemia: Status: Acute Code(s): E87.6 - Hypokalemia Meds Home Medications and Allergies Home Medications Medication Instructions Recorded Confirmed Type vitamin no.180-ferrous 1 tab PO DAILY 12/05/23 12/05/23 History fumarate 27 mg-folic acid 1 mg tablet ( Plus Vitamin-Mineral) hydroxyzine HCl 25 mg tablet 25 mg PO TID PRN anxiety 10 days 12/06/23 Rx #30 tabs New Prescriptions to Start Prescriptions: hydroxyzine HCl Sahil Gutierrez Allergies Allergy/AdvReac Type Severity Reaction Status Date / Time amoxicillin [From Augmentin] Allergy Verified 07/24/22 14:56 clavulanic acid Allergy Verified 07/24/22 14:56 [From Augmentin] Penicillins Allergy Verified 07/24/22 14:56 Discharge Plan Disposition Patient Disposition: Home, Self-Care Condition: Good Follow up Plan Follow up with: Divya Carroll DO [Staff Physician] - 12/08/23 8:15 am (appt for 8:15am 12/08/23) Prescriptions/Medication Reconciliation: New hydroxyzine HCl 25 mg tablet 25 mg PO TID PRN (Reason: anxiety) 10 Days Qty: 30 0RF Continued Plus Vitamin-Mineral 27 mg iron- 1 mg Tablet 1 tab PO DAILY Problem Reconciliation Problems Reviewed?: Yes Patient Discharge Instructions ACTIVITY: Continue current activity DIET: continue same diet Patient Instructions: Diarrhea, Dehydration, DI for Tachycardia Providers Primary Care Provider: Provider,Referral Admit Provider: Sahil Gutierrez Attending Provider: Sahil Gutierrez
[2023-12-06 07:59] LABS: Hemoglobin 11.8 g/dL (12.2-16.2)
[2023-12-06 08:00] VITALS: PULSE 100
[2023-12-06 08:11] LABS: Anion Gap 10.4 mEq/L (5-15); Potassium 3.4 mmoL/L (3.5-5.1)
[2023-12-06] MEDS: POTASSIUM CHLORIDE 20MEQ TAB 20 MEQ PO (09:02)
[2023-12-06 09:19] LABS: NT Pro Brain Natriuretic Pep. 236 pg/mL (0-125)
--- NOTE | 2023-12-07 13:32 | CARE MANAGER ---
Was going to contact patient related to hospital discharge, but she is readmitted to hospital
== END 2023-12-06 10:39 | disposition home or self-care (01) ==
LOC: ER 13:59 → 2ND 14:05
PROVIDERS: Admitting Provider Internal Medicine Adolescent Medicine; Emergency Provider Student in an Organized Health Care Education/Training Program; Visit Provider Internal Medicine Adolescent Medicine
DX: O99.611 Diseases of the digestive system complicating pregnancy, first trimester (principal); Z3A.01 Less than 8 weeks gestation of pregnancy; A08.11 Acute gastroenteropathy due to Norwalk agent; E87.6 Hypokalemia; R19.7 Diarrhea, unspecified; F41.9 Anxiety disorder, unspecified; R00.0 Tachycardia, unspecified; R79.89 Other specified abnormal findings of blood chemistry
CPT/HCPCS: 36415; 71046; 76817; 80053; 83735; 83880; 84484; 84702; 85025; 85378; 87507; 87581; 87632; 87635; 87636; 87798; 93005; 99291; G0378; J0131; J2405

== ENCOUNTER 2023-12-06 21:53 | Observation (INO) | payer SELFPAY ==
[2023-12-06 21:53] VITALS: BP 144/97; PULSE 105; RESP 18; TEMP 36.9; O2SAT 100; BMI 23.4
--- NOTE | 2023-12-06 21:59 | XR_ITS ---
PROCEDURE INFORMATION: Exam: XR Chest Exam date and time: 12/06/2023 10:10 PM Age: 23 years old Clinical indication: Pain; Chest pressure; Additional info: Chest tightness TECHNIQUE: Imaging protocol: Radiologic exam of the chest. Views: 1 view. Total images: 1 COMPARISON: CR XR CHEST 2V 12/05/2023 1:22 PM FINDINGS: Lungs: Unremarkable. No consolidation. No pulmonary vascular congestion or edema. Pleural spaces: Unremarkable. No pleural effusion. No pneumothorax. Heart/Mediastinum: Unremarkable. No cardiomegaly. No mediastinal widening or hilar enlargement. Bones/joints: Unremarkable. IMPRESSION: No radiographically acute cardiopulmonary process.
--- NOTE | 2023-12-06 21:59 | ECG_ITS ---
APPROVED REPORT Exam: Resting ECG HR:105 bpm ECG Measurements Heart Rate 105 AXES HI 147 P 70 QRSd 89 QRS 75 QT 301 T 61 QTc 362 Conclusion SINUS TACHYCARDIA MODERATE ST DEPRESSION [0.05+ mV ST DEPRESSION] ABNORMAL ECG Electronically signed by : GLORIA SAMUEL, 12/07/2023 00:12:11
[2023-12-06 22:13] LABS: Basophils # 0.1 K/mm3 (0-0.2); Basophils % 0.7 % (0.1-2.0); Eosinophils # 0.1 K/mm3 (0.0-0.4); Eosinophils % 0.7 % (0.1-12.0); Hematocrit 40.6 % (37.0-47.0); Lymphocytes # 2.6 K/mm3 (0.7-4.5); Lymphocytes % 31.5 % (10-50); Mean Corpuscular HGB Conc 33.5 g/dL (31.8-35.4); Mean Corpuscular Hemoglobin 30.4 pg (27.0-31.2); Mean Corpuscular Volume 90.9 fl (81-99); Mean Platelet Volume 8.5 fl (7.4-10.4); Monocytes # 0.3 K/mm3 (0.1-1.0); Monocytes % 3.6 % (1.7-9.3); Neutrophils # 5.1 K/mm3 (1.8-7.8); Neutrophils % 63.6 % (37.0-80.0); Platelet Count 226 K/mm3 (142-424); Red Blood Count 4.46 M/mm3 (4.20-5.40); Red Cell Distribution Width 13.8 % (11.5-17.5); White Blood Count 8.1 K/mm3 (4.8-10.8)
[2023-12-06 22:19] LABS: Alanine Aminotransferase 21 U/L (12-78); Albumin Level 4.9 g/dl (3.5-5.0); Albumin/Globulin Ratio 1.5 (1.1-1.8); Alkaline Phosphatase 51 U/L (38-126); Anion Gap 15.6 mEq/L (5-15); Aspartate Amino Transferase 26 U/L (14-36); Bilirubin,Total 1.5 mg/dl (0.2-1.3); Blood Urea Nitrogen 11 mg/dl (7-17); Calcium 10.4 mg/dl (8.4-10.2); Carbon Dioxide 22 mmol/L (22.0-30.0); Chloride 106 mmol/L (98-107); Creatinine Clearance Estimated 109 mL/min (50-200); Estimated Glomerular Filt Rate 87 ml/min (>60); GFR (African American) 106 ML/MIN (>60); Globulin 3.2 g/dL (1.3-3.2); Glucose 91 mg/dl (74-100); Hemoglobin 13.6 g/dL (12.2-16.2); Potassium 3.6 mmoL/L (3.5-5.1); Sodium 140 mmol/L (136-145); Total Protein,Serum 8.1 g/dl (6.3-8.2)
[2023-12-06 22:33] LABS: D-Dimer 0.48 ug/mL (0.0-0.5); Troponin I < 0.01 ng/ml (0.00-0.034)
--- NOTE | 2023-12-06 22:52 | HMH.EDCP ---
Discharge Plan Disposition Chief Complaint: Chest Pain Prescriptions Prescriptions: No Action Plus Vitamin-Mineral 27 mg iron- 1 mg Tablet 1 tab PO DAILY hydroxyzine HCl 25 mg tablet 25 mg PO TID PRN (Reason: anxiety) 10 Days Qty: 30 0RF Referrals Follow up/Referrals: Provider,Referral, [Primary Care Provider] - See instructions Clinical Impressions Clinical Impression: Chest pain during Discharge ED Provider: Chaz Blum [facility] General Chief Complaint: Chest Pain Stated Complaint: Chest Pain Time Seen by Provider: 12/06/23 22:00 Mode of Arrival: Ambulatory Source of Information: Patient Limitations: No Limitations Description of Symptoms (Recalled from ER Triage Doc. by RN): 23 F presents with complaints of chest tightness, left arm numbness, headache, and palpitations. Patient was seen at [facility] ER on Thursday for these symptoms, DC home, came here Thursday and was admitted for observation then sent home. Patient states her symptoms started again this afternoon and she became worried. History of Present Illness HPI narrative: Patient is a 23-year-old female G7, P2 EGA 5 weeks who presents emergency department for evaluation of chest pain. Patient states that she was recently admitted and discharged with follow-up with Dr. Carroll. Since discharge she has had substernal chest pain, intermittent dizziness. No lower abdominal pain, no vaginal bleeding. Per chart review it appears that patient was admitted for diarrhea and tachycardia, workup was remarkable for norovirus. hCG 1999, transvaginal ultrasound shows anechoic structure in the uterine fundal endometrial cavity measuring 4 x 3 x 5 mm typical of an early gestational sac, unable to confirm or exclude viable gestation or ectopic at this time. 2.3 x 2.6 x 2.7 ovarian cyst with internal debris's potentially early corpus luteum cyst for which follow-up ultrasound was recommended, small amount of simple fluid adjacent to the right ovary and in the posterior cul-de-sac. Patient was discharged with follow-up this coming Thursday with Dr. Craroll. Due to her tachycardia and substernal chest pain she presents here for continued evaluation. Related Data Home Medications Medication Instructions Recorded Confirmed vitamin no.180-ferrous 1 tab PO DAILY 12/05/23 12/05/23 fumarate 27 mg-folic acid 1 mg tablet ( Plus Vitamin-Mineral) Previous Rx's Medication Instructions Recorded hydroxyzine HCl 25 mg tablet 25 mg PO TID PRN anxiety 10 days 12/06/23 #30 tabs Allergies Allergy/AdvReac Type Severity Reaction Status Date / Time amoxicillin [From Augmentin] Allergy Verified 07/24/22 14:56 clavulanic acid Allergy Verified 07/24/22 14:56 [From Augmentin] Penicillins Allergy Verified 07/24/22 14:56 PFSH [facility] Disclaimer: The information contained in this section may have been updated after the patient was seen, as this information can be updated by other users. Medical History Herpes simplex of female genitalia Tobacco dependence syndrome Surgical History Hx of dilation and curettage Hx of tonsillectomy Social History Smoking Status: Former smoker tobacco type: e-cigarettes second hand exposure: Yes alcohol intake: current alcohol intake frequency: holidays/special occasions only substance use type: denies use current occupational status: other Travel in the last 8 weeks: None housing: house ROS Obtained: Yes Systems reviewed as appropriate & no additional complaints except as documented Physical Exam General General appearance: alert and other (Ill-appearing) Head Head exam: atraumatic and normocephalic Eye Eye exam: Present PERRL ENT ENT exam: Present mucous membranes moist Neck Neck exam: Present normal inspection Chest Chest inspection: Present normal inspection and symmetric chest wall rise Respiratory Respiratory exam: Present normal lung sounds bilaterally; Absent respiratory distress Cardiovascular Cardiovascular exam: Present normal rhythm and tachycardia Abdominal Exam Abdominal exam: Present soft; Absent tenderness Extremities Exam Extremities exam: Present normal inspection Neurological Exam Neurological exam: Present alert Psychiatric Psychiatric exam: Present normal affect Skin Skin exam: Present warm and dry HEART Score HEART Score HEART Score assessment performed?: Yes History (anamnesis): Moderately suspicious ECG: Normal Age: <45 years Risk factors: No known risk factors Troponin: </= normal limit HEART Score: 1 Critical Care Critical Care Time Critical Care Time: No Medical Decision Making Paresh Inquiry Pt receiving controlled substance: No Vital Signs Vital Signs: 12/06/23 21:53 Temperature 98.4 F Temperature Source Oral Pulse Rate [Left] 105 H Respiratory Rate 18 Blood Pressure [Right Arm] 144/97 H Blood Pressure Mean [Right Arm] 112 Blood Pressure Source [Right Arm] Automatic Cuff Blood Pressure Position [Right Arm] Supine 02 Sat by Pulse Oximetry 100 Oxygen Delivery Method Room Air Lab Data Labs: Lab Results 12/06/23 22:03: WBC 8.1 D, RBC 4.46, Hgb 13.6 D, Hct 40.6, MCV 90.9, MCH 30.4, MCHC 33.5, RDW 13.8, Plt Count 226, MPV 8.5, Neut % (Auto) 63.6, Lymph % (Auto) 31.5, [place] % (Auto) 3.6, Eos % (Auto) 0.7, Baso % (Auto) 0.7, Neut # (Auto) 5.1, Lymph # (Auto) 2.6, [place] # (Auto) 0.3, Eos # (Auto) 0.1, Baso # (Auto) 0.1, D-Dimer 0.48, Sodium 140, Potassium 3.6, Chloride 106, Carbon Dioxide 22, Anion Gap 15.6 H, BUN 11 D, Creatinine 0.80, Estimated Creat Clear 109, Estimated GFR 87, Est GFR ( Amer) 106, Glucose 91, Calcium 10.4 H, Total Bilirubin 1.5 H, AST 26 D, ALT 21 D, Alkaline Phosphatase 51, Troponin I < 0.01, Total Protein 8.1 D, Albumin 4.9 D, Globulin 3.2, Albumin/Globulin Ratio 1.5 12/06/23 22:03 12/06/23 22:03 Response Orders (Tests/Meds): ED MEDICATIONS Generic Name Dose Route Start Last Admin Trade Name Freq PRN Reason Stop Dose Admin Doxylamine Succinate/Pyridoxine 1 tab 12/06/23 23:35 Doxylamine 10mg/Pyridoxine 10mg Tablet PO 12/06/23 23:36 ONCE ONE Lactated Ringer's 1,000 mls @ 999 mls/hr 12/06/23 23:26 12/06/23 23:30 Lactated Ringer's 1000 Ml Bag IV 12/07/23 00:26 999 mls/hr .Q1H1M ONE Administration Discontinued Medications Generic Name Dose Route Start Last Admin Trade Name Freq PRN Reason Stop Dose Admin Aspirin 324 mg 12/06/23 21:57 12/06/23 22:35 Aspirin 81mg Chewable Tablet PO 12/06/23 21:58 Not Given ONCE ONE Nitroglycerin 0.4 mg 12/06/23 21:57 Nitroglycerin 0.4mg Sl Tablet SL 12/07/23 21:57 Q5MINP PRN Chest Pain ORDERS Category Date Time Status CT angio chest - dissection Stat Cat Scan 12/06/23 23:26 Ordered XR chest portable Stat Exams 12/06/23 21:59 Taken Beta HCG, Quant [HCG,Quantitative] Stat Lab 12/06/23 22:03 Received Complete Blood Count Auto Diff Stat Lab 12/06/23 22:03 Completed Comprehensive Metabolic Panel Stat Lab 12/06/23 22:03 Completed D-Dimer Stat Lab 12/06/23 22:03 Completed Troponin I Q3H Lab 12/06/23 22:03 Completed Troponin I Q3H Lab 12/07/23 01:00 Ordered Troponin I Q3H Lab 12/07/23 04:00 Ordered ECG Data Tracing #1: ECG Narrative: Independently interpreted by me, rate is 105, rhythm is regular, axis is normal, no ST elevation in anatomical contiguous leads, QTc 362. [facility] Narrative Medical Decision Narrative: In summary patient is a 23-year-old female past medical history described above presents emergency department for evaluation of chest pain tachycardia. Patient is hemodynamically stable and ill-appearing upon arrival, afebrile. Differential includes cardiac chest pain, pulmonary embolism, among others. Workup will be conducted with hematologic labs, chest x-ray, EKG, D-dimer, serial troponins. Initial interventions include crystalloid bolus. Initial workup reviewed by me, hematologic labs are largely nonactionable, no significant leukocytosis, no significant anemia, D-dimer 0.48. No BRENDA or critical electrolyte abnormality. Initial troponin undetectably low. Using D-dimer to rule out pulmonary embolism and is a low-level evidence week recommendation. Upon repeat evaluation patient continued to be ill-appearing. She has persistent chest pain. Given this it was felt that dissection and pulmonary embolism must be ruled out and the risks of CT imaging with contrast were relayed to the patient and she wishes to proceed. The risk of CT imaging of the chest in to the fetus is low given that she has not had any previous CT imaging during . It is felt that at this time the benefits outweigh the risks. We will proceed with CT imaging. Second troponin, CT imaging and repeat evaluation pending at time of transfer of care to the oncoming physician, Dr. Vides.
--- NOTE | 2023-12-06 23:26 | CT_ITS ---
PROCEDURE INFORMATION: Exam: CTA Chest With Contrast Exam date and time: 12/07/2023 12:02 AM Age: 23 years old Clinical indication: Tachypnea; Additional info: Preg/cp/tachy/ ill appearing TECHNIQUE: Imaging protocol: Computed tomographic angiography of the chest with contrast. Exam focused on the arteries. 3D rendering (Not supervised by radiologist): MIP and/or 3D reconstructed images were created by the technologist. Total images: 325 Radiation optimization: All CT scans at this facility use at least one of these dose optimization techniques: automated exposure control; mA and/or kV adjustment per patient size (includes targeted exams where dose is matched to clinical indication); or iterative reconstruction. Contrast material: ISOVUE; Contrast volume: 94 ml; Contrast route: INTRAVENOUS (IV); COMPARISON: CT ANGIO CHEST PE PROTOCOL 02/14/2021 10:29 PM FINDINGS: Pulmonary arteries: Adequate contrast opacification the pulmonary arteries. No acute pulmonary emboli. Aorta: Thoracic aorta is normal in course and caliber. No aneurysm or dissection. Lungs: Trachea and main bronchi are patent. Lungs are clear and well expanded. Pleural spaces: Unremarkable. No pneumothorax. No pleural effusion. Heart: Normal heart size. No pericardial effusion. Mediastinal space: No mediastinal mass or fluid collection. Lymph nodes: No mediastinal or hilar lymphadenopathy. Gallbladder and bile ducts: Status post cholecystectomy. Mild biliary ectasia compatible with post cholecystectomy status. Intraperitoneal space: No acute process in the upper abdomen. Bones/joints: Minor anterior wedging T8 vertebral body, either remote or developmental, unchanged. Minor degenerative endplate changes midthoracic spine with Schmorl's nodes. Soft tissues: Unremarkable. IMPRESSION: 1. No acute intrathoracic process. Specifically, no acute pulmonary emboli. 2. No aortic aneurysm or dissection. 3. Clear lungs.
[2023-12-06] MEDS: LACTATED RINGERS 1000ML 1,000 ML 999 ML IV (23:30)
[2023-12-06 23:35] VITALS: BP 134/89; PULSE 88; RESP 14; O2SAT 100
[2023-12-06 23:39] LABS: HCG,Quantitative 3509 mIU/ml (0-5.42)
[2023-12-07] VITALS (9 sets, daily range): BP systolic 106–137; BP diastolic 59–95; PULSE 70–126; RESP 14–22; TEMP 36.4–37; O2SAT 97–100; BMI 23.4
[2023-12-07] MEDS: DOXYLAMINE 10MG/PYRIDOXINE 10MG TABLET 1 TAB PO (00:05)
[2023-12-07] MEDS: IOPAMIDOL-370 (76%);100ML BOTTLE 94 ML IV (00:12)
[2023-12-07] MEDS: SODIUM CHLORIDE 0.9% 10ML SYR (RAD ONLY) 10 ML IV (00:12)
[2023-12-07] MEDS: 0.9 % SODIUM CHLORIDE 50 ML VIAL IV (00:13)
--- NOTE | 2023-12-07 01:10 | PC.NURSE ---
Took over care of pt, no needs at this time, LR was not restarted after CTA, restarted it LR scanned to run at 100ml/hr
--- NOTE | 2023-12-07 01:19 | PC.NURSE ---
notified fun house attendant of admission
[2023-12-07] MEDS: LACTATED RINGERS 1000ML 1,000 ML 100 ML IV (01:24)
[2023-12-07 01:36] LABS: Free T4 (Free Thyroxine) 1.15 ng/dl (0.78-2.19)
--- NOTE | 2023-12-07 01:38 | PC.NURSE ---
report called to Zaki MACIEL #[id number]
[2023-12-07 01:50] LABS: Thyroid Stimulating Hormone 6.67 uIU/mL (0.465-4.68)
--- NOTE | 2023-12-07 01:54 | PC.NURSE ---
Patient arrived to floor via wheelchair from ED at 1:52.
[2023-12-07 02:03] LABS: Troponin I < 0.01 ng/ml (0.00-0.034)
[2023-12-07 02:21] LABS: Microscopic, Urine URINE MICROSCOPIC (MICROSCOPIC)
[2023-12-07 02:25] LABS: Appearance,Urine CLEAR (Clear); Bilirubin,Urine Negative (Negative); Blood, Urine Negative (Negative); Color,Urine YELLOW (Yellow); Glucose,Urine (UA) Negative (Negative); Ketones,Urine 1+ (Negative); Leukocyte Esterase,Urine TRACE (Negative); Nitrate,Urine Negative (Negative); PH,Urine 6.5 (5.0-8.5); Protein,Urine Negative (Negative); Urobilinogen,Urine 0.2 EU/dl (0.2)
[2023-12-07] MEDS: DEXTROSE 5%-LACTATED RINGERS 1,000 ML 100 ML IV (02:29)
[2023-12-07 02:40] LABS: Squamous Epithelial Cell,Urine Occasional #/hpf (0-5); WBC,Urine Occasional #/hpf (0-3)
--- NOTE | 2023-12-07 02:44 | P.HP_ITS ---
History of Present Illness *Admission Date: 12/07/23 *Reason for visit:: Chest pain *History of present illness: This is a 23-year-old female 7 para 2, who presents emergency department today with complaints of chest pain. She was recently admitted for similar complaints and discharged yesterday. Presents back today with similar complaints of chest pain and tachycardia. States that she is becoming very dizzy and has had pounding chest pressure. She was also seen at [facility] yesterday for the same issue. She states that she became tachycardic again with pounding chest pain this evening so decided to seek treatment in the emergency department. Upon arrival to emergency department she was noted to tachycardic with heart rate in the 150s. She did have slowing of heart rate after being medicated with IV fluids. She reports vomiting has now subsided and her diarrhea has slowed but she persistently has dizziness that caused her to be nauseated. She describes the chest pain as chest pressure and pounding of her heart. Repeat emergency department workup notable for increasing beta-hCG level. TSH of 6.16 with a T4 of 1.14. CTA of her chest negative for PE. Given her continued tachycardia and complaints, she will be admitted to hospital service for further evaluation. [facility] Disclaimer: The information contained in this section may have been updated after the patient was seen, as this information can be updated by other users. Medical History Herpes simplex of female genitalia Tobacco dependence syndrome Surgical History Hx of dilation and curettage Hx of tonsillectomy Family History Other Family history of myocardial infarction Family history of stroke Social History Smoking Status: Former smoker tobacco type: e-cigarettes second hand exposure: Yes alcohol intake: current alcohol intake frequency: holidays/special occasions only substance use type: denies use current occupational status: other Travel in the last 8 weeks: None housing: house Review of Systems Constitutional Constitutional: Reports as per HPI Eyes Eyes: Reports as per HPI ENT Ears, Nose, Mouth, and Throat: Reports as per HPI *Cardiovascular Cardiovascular: Reports as per HPI *Respiratory Respiratory: Reports as per HPI *Gastrointestinal Gastrointestinal: Reports as per HPI *Genitourinary Genitourinary: Reports as per HPI *Musculoskeletal Musculoskeletal: Reports as per HPI Integumentary/Breasts Skin/Breast: Reports as per HPI *Neurologic Neurologic: Reports as per HPI Psychiatric Psychiatric: Reports as per HPI Endocrine Endocrine: Reports as per HPI Meds Home Medications and Allergies Home Medications Medication Instructions Recorded Confirmed Type vitamin no.180-ferrous 1 tab PO DAILY 12/05/23 12/07/23 History fumarate 27 mg-folic acid 1 mg tablet ( Plus Vitamin-Mineral) hydroxyzine HCl 25 mg tablet 25 mg PO TIDP PRN anxiety 12/07/23 12/07/23 History New Prescriptions to Start Prescriptions: Allergies Allergy/AdvReac Type Severity Reaction Status Date / Time amoxicillin [From Augmentin] Allergy Verified 07/24/22 14:56 clavulanic acid Allergy Verified 07/24/22 14:56 [From Augmentin] Penicillins Allergy Verified 07/24/22 14:56 Exam Data for Last 24 hours Vital signs and Labs for Last 24 Hours: Temp Pulse Resp BP Pulse Ox O2 Del Method 98.4 F 98 H 22 132/95 H 99 Room Air 12/07/23 02:05 12/07/23 02:05 12/07/23 02:05 12/07/23 02:05 12/07/23 02:05 12/07/23 02:05 Laboratory Results - last 24 hr 12/06/23 00:01: TSH 6.67 H, Free T4 1.15 12/06/23 22:03: WBC 8.1 D, RBC 4.46, Hgb 13.6 D, Hct 40.6, MCV 90.9, MCH 30.4, MCHC 33.5, RDW 13.8, Plt Count 226, MPV 8.5, Neut % (Auto) 63.6, Lymph % (Auto) 31.5, [place] % (Auto) 3.6, Eos % (Auto) 0.7, Baso % (Auto) 0.7, Neut # (Auto) 5.1, Lymph # (Auto) 2.6, [place] # (Auto) 0.3, Eos # (Auto) 0.1, Baso # (Auto) 0.1, D- Dimer 0.48, Sodium 140, Potassium 3.6, Chloride 106, Carbon Dioxide 22, Anion Gap 15.6 H, BUN 11 D, Creatinine 0.80, Estimated Creat Clear 109, Estimated GFR 87, Est GFR ( Amer) 106, Glucose 91, Calcium 10.4 H, Total Bilirubin 1.5 H, AST 26 D, ALT 21 D, Alkaline Phosphatase 51, Troponin I < 0.01, Total Protein 8.1 D, Albumin 4.9 D, Globulin 3.2, Albumin/Globulin Ratio 1.5, HCG, Quant 3509 H 12/07/23 01:36: Troponin I < 0.01 12/07/23 02:15: Urine Color Yellow, Urine Appearance Clear, Urine pH 6.5, Ur Specific [place] 1.010, Urine Protein Negative, Urine Glucose (UA) Negative, Urine Ketones 1+, Urine Blood Negative, Urine Nitrate Negative, Urine Bilirubin Negative, Urine Urobilinogen 0.2, Ur Leukocyte Esterase Trace, Urine RBC None, Urine WBC Occasional, Ur Squamous Epith Cells Occasional, Urine Bacteria None I & O for Last 24 hours: Intake & Output 12/04/23 12/05/23 12/06/23 12/07/23 23:59 23:59 23:59 23:59 Weight 63.957 kg 63.9 kg Constitutional Constitutional: no acute distress *Routine HEENT Exam Head: Present normocephalic Eye: Present EOMI and PERRL ENT: Present mucous membranes moist *Routine Neck Exam Neck: Present supple; Absent lymphadenopathy *Routine Respiratory Exam Respiratory: Present CTA bilaterally *Routine Cardiovascular Exam Cardiovascular: Present RRR *Routine Abdominal Exam Abdominal: Present soft and normoactive bowel sounds; Absent tenderness *Routine Rectal Exam Rectal:: deferred *Routine Genitalia Exam Genitalia:: deferred *Routine Extremities Exam Extremities: Absent cyanosis, clubbing or edema *Routine Skin Exam Skin: Present warm; Absent rash *Routine Neurological Exam Neurological: Present alert and oriented X3 Assessment and Plan *Assessment and plan (1) Chest pain during : Status: Acute Category: Medical Code(s): O99.891 - Other specified diseases and conditions complicating ; R07.9 - Chest pain, unspecified (2) Enteritis due to Norovirus: Status: Acute Category: Medical Code(s): A08.11 - Acute gastroenteropathy due to [place] agent (3) of unknown anatomic location: Status: Acute Category: Medical Code(s): O36.80X0 - with inconclusive viability, not applicable or unspecified (4) Tachycardia: Status: Acute Category: Medical Code(s): R00.0 - Tachycardia, unspecified (5) Anxiety: Status: Acute Category: Medical Code(s): F41.9 - Anxiety disorder, unspecified Plan Patient represented to the ER after being discharged earlier in the day. Had recurrence of her chest pain and tachycardia. Still quite dry from norovirus. Worsening p.o. intake since getting home. Discussed case with the ER, request admission for IV fluids and further management. Medicine agreed to admit. Cardiology and gynecology consulted to assist with care. Problems addressed as follows: #Palpitations #Chest pain #Tachycardia Cardiac workup thus far negative. Imagine chest pain and palpitations are related to mild anxiety and likely mild dehydration. Echocardiogram obtained, formal read pending. Cardiology consulted to assist with care. -Heart rate better by morning with IV fluids. Was found to have norovirus on prior hospitalization. Ketones noted in urine. Will continue dextrose fluids for clearing of ketones and continued IV hydration Continue antiemetics as needed Hydroxyzine 25 mg as needed every 6 hours for anxiety # On recent ultrasound 2 days ago, 5 weeks gestation Positive ketones in urine, continue dextrose containing fluids hCG increased from prior visit Gynecology consulted to help with management of possible viable versus molar . Discontinue Zofran, transition to Phenergan for nausea during . 12.5 mg IV every 6 hours as needed Full code Regular diet Holding anticoagulation due to Rounded on patient after nurse practitioner. Personally examined and interviewed patient. Agree with exam findings and care plan as documented.
[2023-12-07 05:12] LABS: Basophils # 0.1 K/mm3 (0-0.2); Basophils % 0.9 % (0.1-2.0); Eosinophils % 0.6 % (0.1-12.0); Hematocrit 37.7 % (37.0-47.0); Hemoglobin 12.6 g/dL (12.2-16.2); Lymphocytes % 29.5 % (10-50); Mean Corpuscular HGB Conc 33.5 g/dL (31.8-35.4); Mean Corpuscular Hemoglobin 30.2 pg (27.0-31.2); Mean Platelet Volume 8.3 fl (7.4-10.4); Monocytes # 0.2 K/mm3 (0.1-1.0); Monocytes % 3.1 % (1.7-9.3); Neutrophils # 4.5 K/mm3 (1.8-7.8); Neutrophils % 65.9 % (37.0-80.0); Platelet Count 215 K/mm3 (142-424); Red Blood Count 4.19 M/mm3 (4.20-5.40); Red Cell Distribution Width 13.7 % (11.5-17.5); White Blood Count 6.8 K/mm3 (4.8-10.8)
[2023-12-07 05:19] LABS: Anion Gap 13.4 mEq/L (5-15); Blood Urea Nitrogen 8 mg/dl (7-17); Carbon Dioxide 21 mmol/L (22.0-30.0); Chloride 106 mmol/L (98-107); Creatinine Clearance Estimated 145 mL/min (50-200); Estimated Glomerular Filt Rate 122 ml/min (>60); GFR (African American) 147 ML/MIN (>60); Glucose 94 mg/dl (74-100); Potassium 3.4 mmoL/L (3.5-5.1); Sodium 137 mmol/L (136-145)
[2023-12-07 05:32] LABS: Troponin I < 0.01 ng/ml (0.00-0.034)
[2023-12-07] MEDS: ONDANSETRON 4MG/2ML VIAL 4 MG IV (06:18)
--- NOTE | 2023-12-07 07:11 | CA_ITS ---
APPROVED REPORT EXAM: Comprehensive 2D, Doppler, and color-flow Echocardiogram Foot Worker: Avril Chauhan RVT Ht: 5 ft 4 in Wt: 140lbs BSA: 1.68 BP: 152/67 mmHg Indications: CP,TACHYCARDIA,SOA,5 WEEKS PREG,NOROVIRUS 2D Dimensions Left Atrium 2.81 cm F: 2.7 - 3.8 LA Volume 22.40 mL RVID Base (AP4) 2.48 cm (M/F) 2.5-4.1 LA Volume Index 13.33 mL/m2 (M/F) 16-34 LVOT 1.93 cm (M/F) 1.5-2.5 EF AP4 56.00 % GL Strain -17.2 % M-Mode Dimensions LVDd 3.97 cm (3.5-5.7) Ao Diam 2.22 cm (2.0-3.7) LVDs 2.70 cm (3.5-5.7) IVSd 0.49 cm (0.6-1.1) PWd 0.64 cm (0.6-1.1) EF (Teich) 60.80% FS 32.00% EDV (Teich) 68.80 mL ESV (Teich) 27.00 mL LV Diastology E Decel Time 136 (160-240 msec) E/A Ratio 1.7 MED E' 11.8 (>= 7 cm/sec) E'/MED E' Ratio 7.09 (<= 14) LAT E' 14.6 (>= 10 cm/sec) E/LAT E' Ratio 5.73 (<= 14) Aortic Valve LVOT Max 86.0 (70-110 cm/s) MYRNA Index 1.28 cm2/m2 LVOT VTI 16.93 cm AoV Peak Douglas. 111.0 (50-130 cm/s) AO Peak GR. 4.10 mmHg AO Mean GR. 2.60 (<5 mmHg) AO VTI 23.1 (18-25 cm) MYRNA (VTI) 2.15 (2.5-4.5 cm2) Mitral Valve MV E Max Douglas. 84.0 (40-130 cm/s) MV A Velocity 50.0 (40-130 cm/s) E/A Ratio 1.67 MV Decel. Time 136 (160-240 ms) Tricuspid Valve TR P. Velocity 231.00 cm/s RAP Estimate 10.00 mmHg RVSP 31.40 mmHg Left Ventricle The left ventricle is normal size. The left ventricular systolic function is normal. The left ventricular ejection fraction is within the normal range. There is normal left ventricular wall thickness. There is normal LV segmental wall motion. The left ventricular diastolic function is normal. LVEF is 60%. Right Ventricle The right ventricle is normal size. The right ventricular systolic function is normal. Atria The left atrium size is normal. The right atrium size is normal. There is no Doppler evidence of interatrial shunt. Aortic Valve The aortic valve opens well. There is no aortic valvular stenosis. Trace aortic regurgitation is present. Mitral Valve The mitral valve is normal in structure. No evidence of mitral valve stenosis. Trace mitral valve regurgitation. Tricuspid Valve The tricuspid valve leaflets are thin and pliable. Trace tricuspid regurgitation. RVSP is normal. Pulmonic Valve The pulmonary valve is normal in structure. Trace pulmonic regurgitation. Great Vessels The aortic root is normal in size. The ascending aorta is not well-visualized. IVC is normal in size and collapses >50% with inspiration. Pericardium There is no pericardial effusion. Other Information Study Quality: Fair Conclusion Normal biventricular systolic function. No significant valvular stenosis or regurgitation. Electronically signed by : Roxanna Cash MD 12/08/2023 12:50:30
--- NOTE | 2023-12-07 07:26 | ECG_ITS ---
APPROVED REPORT Exam: Resting ECG HR:95 bpm ECG Measurements Heart Rate 95 AXES AK 168 P 68 QRSd 88 QRS 78 QT 334 T 46 QTc 387 Conclusion SINUS RHYTHM MODERATE ST DEPRESSION [0.05+ mV ST DEPRESSION] ABNORMAL ECG UNCONFIRMED REPORT Electronically signed by : Prem Grant MD 12/11/2023 12:26:43
[2023-12-07] MEDS: ALUMINUM/MAGNESIUM/SIMETHICONE 30ML UDC 30 ML PO ×2 (07:28→17:54)
[2023-12-07 07:44] LABS: HCG Qualitative, Serum Positive (Negative)
--- NOTE | 2023-12-07 07:44 | HMH.PHAINT1 ---
Pharmacy Intervention Comments: MEDICATION RECONCILIATION COMPLETED ON PATIENT USING EXTERNAL FILL HISTORY FROM PHARMACY AND DISCHARGE SUMMARY FROM EARLIER IN THE DAY. -FIDENCIO ESTRADAD
[2023-12-07 08:28] LABS: HCG,Quantitative 3667 mIU/ml (0-5.42)
[2023-12-07] MEDS: MVI, ADULT NO.1 WITH VIT K 10 ML, THIAMINE HCL 100 MG, MAGNESIUM SULFATE 2 GM in LACTAT... 125 ML IV (11:18)
--- NOTE | 2023-12-07 13:14 | P.CONCA_ITS ---
History of Present Illness History of Present Illness Consult date: 12/07/23 Requesting physician: Sahil Gutierrez Consult reason: chest pain Chief complaint: palpitations History of present illness: 23 yo WF without known CVD but hx of 5 prior miscarriages. Found out on Thu she was again and developed severe anxiety with associated Htn to 150s and tachycardia to 150s. She called EMS and was transported to our ED. supervisor cytology consult obtained. CTA neg for PE. She is pos for norovirus and had low K on arrival. She received fluids and KCl and admitted overnight. Her sypmtoms are resolved and ECHO is normal. [facility] Disclaimer: The information contained in this section may have been updated after the kaylenen heath was seen, as this information can be updated by other users. Medical History Herpes simplex of female genitalia Tobacco dependence syndrome Surgical History Hx of dilation and curettage Hx of tonsillectomy Family History Other Family history of myocardial infarction Family history of stroke Social History Smoking Status: Former smoker tobacco type: e-cigarettes second hand exposure: Yes alcohol intake: current alcohol intake frequency: holidays/special occasions only substance use type: denies use current occupational status: other Travel in the last 8 weeks: None housing: house Review of Systems Constitutional Constitutional: Denies fatigue and Denies weakness Eyes Eyes: Denies loss of vision ENT Ears, Nose, Mouth, and Throat: Denies hearing loss *Cardiovascular Cardiovascular: Denies chest pain and Denies dyspnea *Respiratory Respiratory: Denies cough and Denies dyspnea *Gastrointestinal Gastrointestinal: Denies change in stool character, Denies nausea and Denies vomiting *Musculoskeletal Musculoskeletal: Denies muscle weakness Integumentary/Breasts Skin/Breast: Denies changing lesions *Neurologic Neurologic: Reports as per HPI, Denies loss of vision and Denies weakness Endocrine Endocrine: Denies fatigue Exam Data for Last 24 hours Vital signs and Labs for Last 24 Hours: Temp Pulse Resp BP Pulse Ox O2 Del Method 97.6 F 87 17 106/59 L 98 Room Air 12/07/23 08:00 12/07/23 11:49 12/07/23 11:49 12/07/23 11:49 12/07/23 11:49 12/07/23 13:00 Laboratory Results - last 24 hr 12/06/23 00:01: TSH 6.67 H, Free T4 1.15 12/06/23 22:03: WBC 8.1 D, RBC 4.46, Hgb 13.6 D, Hct 40.6, MCV 90.9, MCH 30.4, MCHC 33.5, RDW 13.8, Plt Count 226, MPV 8.5, Neut % (Auto) 63.6, Lymph % (Auto) 31.5, [place] % (Auto) 3.6, Eos % (Auto) 0.7, Baso % (Auto) 0.7, Neut # (Auto) 5.1, Lymph # (Auto) 2.6, [place] # (Auto) 0.3, Eos # (Auto) 0.1, Baso # (Auto) 0.1, D- Dimer 0.48, Sodium 140, Potassium 3.6, Chloride 106, Carbon Dioxide 22, Anion Gap 15.6 H, BUN 11 D, Creatinine 0.80, Estimated Creat Clear 109, Estimated GFR 87, Est GFR ( Amer) 106, Glucose 91, Calcium 10.4 H, Total Bilirubin 1.5 H, AST 26 D, ALT 21 D, Alkaline Phosphatase 51, Troponin I < 0.01, Total Protein 8.1 D, Albumin 4.9 D, Globulin 3.2, Albumin/Globulin Ratio 1.5, HCG, Quant 3509 H 12/07/23 01:36: Troponin I < 0.01 12/07/23 02:15: Urine Color Yellow, Urine Appearance Clear, Urine pH 6.5, Ur Specific [place] 1.010, Urine Protein Negative, Urine Glucose (UA) Negative, Urine Ketones 1+, Urine Blood Negative, Urine Nitrate Negative, Urine Bilirubin Negative, Urine Urobilinogen 0.2, Ur Leukocyte Esterase Trace, Urine RBC None, Urine WBC Occasional, Ur Squamous Epith Cells Occasional, Urine Bacteria None 12/07/23 05:00: WBC 6.8, RBC 4.19 L, Hgb 12.6, Hct 37.7, MCV 90.0, MCH 30.2, MCHC 33.5, RDW 13.7, Plt Count 215, MPV 8.3, Neut % (Auto) 65.9, Lymph % (Auto) 29.5, [place] % (Auto) 3.1, Eos % (Auto) 0.6, Baso % (Auto) 0.9, Neut # (Auto) 4.5, Lymph # (Auto) 2.0, [place] # (Auto) 0.2, Eos # (Auto) 0.0, Baso # (Auto) 0.1, Sodium 137, Potassium 3.4 L, Chloride 106, Carbon Dioxide 21 L, Anion Gap 13.4, BUN 8 D, Creatinine 0.60 D, Estimated Creat Clear 145, Estimated GFR 122, Est GFR ( Amer) 147 D, Glucose 94, Calcium 9.0, Troponin I < 0.01, Serum HCG, Qual Positive, HCG, Quant 3667 H I & O for Last 24 hours: Intake & Output 12/04/23 12/05/23 12/06/23 12/07/23 23:59 23:59 23:59 23:59 Intake Total 270 / 270 Output Total 400 / 400 Balance -130 / -130 Weight 141 lb 140 lb 14.006 oz Constitutional Constitutional: no acute distress and cooperative *Routine HEENT Exam Eye: Present PERRL *Routine Respiratory Exam Respiratory: Present CTA bilaterally; Absent accessory muscle use, wheezes or crackles *Routine Cardiovascular Exam Cardiovascular: Present RRR, Normal S1 and Normal S2; Absent murmur, gallop or rubs *Routine Abdominal Exam Abdominal: Present soft; Absent tenderness *Routine Extremities Exam Extremities: Present pulses intact; Absent cyanosis or edema *Routine Skin Exam Skin: Present intact; Absent erythema or wounds *Routine Neurological Exam Neurological: Present alert and oriented X3 Routine Psychiatric Exam Psychiatric: Present cooperative Meds Home Medications and Allergies Home Medications Medication Instructions Recorded Confirmed Type vitamin no.180-ferrous 1 tab PO DAILY 12/05/23 12/07/23 History fumarate 27 mg-folic acid 1 mg tablet ( Plus Vitamin-Mineral) hydroxyzine HCl 25 mg tablet 25 mg PO TIDP PRN anxiety 12/07/23 12/07/23 History New Prescriptions to Start Prescriptions: Allergies Allergy/AdvReac Type Severity Reaction Status Date / Time amoxicillin [From Augmentin] Allergy Verified 07/24/22 14:56 clavulanic acid Allergy Verified 07/24/22 14:56 [From Augmentin] Penicillins Allergy Verified 07/24/22 14:56 Assessment and Plan *Assessment and plan (1) Sinus tachycardia: Status: Acute Category: Medical Code(s): R00.0 - Tachycardia, unspecified (2) Norovirus: Status: Acute Category: Medical Code(s): A08.11 - Acute gastroenteropathy due to [place] agent (3) Hypokalemia: Status: Acute Category: Medical Code(s): E87.6 - Hypokalemia (4) Chest pain during : Status: Acute Category: Medical Code(s): O99.891 - Other specified diseases and conditions complicating ; R07.9 - Chest pain, unspecified (5) Elevated brain natriuretic peptide (BNP) level: Status: Acute Category: Medical Code(s): R79.89 - Other specified abnormal findings of blood chemistry Plan Sinus Tachycardia and Chest Pain - pt has low pre-test probability for underlying CVD. Her ECHO and CTA are unremarkable and ProBNP trended back down. - symptoms were likely secondary to anxiety/stress and norovirus -/+ hormonal component from - she is CV stable for discharge home and can f/u with us in clinic in 2 weeks. If she continues to have hypertensive or tachycardic episodes at home she may benefit from heart monitor and/or beta blockers Norovirus with Hypokalemia - improving with fluid/lyte replacement - viable/stable per report - pt has had 5 prior miscarriages at this stage of CV stable for discharge home with plans as outlined above. OP f/u in our clinic 2 weeks. Call sooner with any changes/concerns.
[2023-12-07] MEDS: hydrOXYzine pamoate 25MG CAPSULE 25 MG PO ×2 (17:19→23:39)
--- NOTE | 2023-12-07 17:28 | EXP.GYN.CONS ---
History of Present Illness *Admission Date: 12/07/23 *History of present illness: This is a 23-year-old female 7 para 2, who presents emergency department today with complaints of chest pain. She was recently admitted for similar complaints and discharged yesterday. Presents back today with similar complaints of chest pain and tachycardia. States that she is becoming very dizzy and has had pounding chest pressure. She was also seen at [facility] yesterday for the same issue. She states that she became tachycardic again with pounding chest pain this evening so decided to seek treatment in the emergency department. Upon arrival to emergency department she was noted to tachycardic with heart rate in the 150s. She did have slowing of heart rate after being medicated with IV fluids. She reports vomiting has now subsided and her diarrhea has slowed but she persistently has dizziness that caused her to be nauseated. She describes the chest pain as chest pressure and pounding of her heart. Repeat emergency department workup notable for increasing beta-hCG level. TSH of 6.16 with a T4 of 1.14. CTA of her chest negative for PE. Given her continued tachycardia and complaints, she will be admitted to hospital service for further evaluation. [facility] Disclaimer: The information contained in this section may have been updated after the patient was seen, as this information can be updated by other users. Medical History Herpes simplex of female genitalia Tobacco dependence syndrome Surgical History Hx of dilation and curettage Hx of tonsillectomy Family History Family history of stroke Family history of myocardial infarction Social History Smoking Status: Former smoker tobacco type: e-cigarettes second hand exposure: Yes alcohol intake: current alcohol intake frequency: holidays/special occasions only substance use type: denies use current occupational status: other Travel in the last 8 weeks: None housing: house Review of Systems Review of Systems Review of systems:: pertinent systems reviewed and negative unless documented below Constitutional Constitutional: Denies weakness Eyes Eyes: Denies loss of vision *Neurologic Neurologic: Reports as per HPI, Denies loss of vision and Denies weakness Meds Home Medications and Allergies Home Medications Medication Instructions Recorded Confirmed Type vitamin no.180-ferrous 1 tab PO DAILY 12/05/23 12/07/23 History fumarate 27 mg-folic acid 1 mg tablet ( Plus Vitamin-Mineral) hydroxyzine HCl 25 mg tablet 25 mg PO TIDP PRN anxiety 12/07/23 12/07/23 History New Prescriptions to Start Prescriptions: Allergies Allergy/AdvReac Type Severity Reaction Status Date / Time amoxicillin [From Augmentin] Allergy Verified 07/24/22 14:56 clavulanic acid Allergy Verified 07/24/22 14:56 [From Augmentin] Penicillins Allergy Verified 07/24/22 14:56 Exam (Inpt) Vital signs and Labs for Last 24 Hours: Temp Pulse Resp BP Pulse Ox O2 Del Method 98.3 F 78 19 112/68 99 Room Air 12/07/23 16:00 12/07/23 16:00 12/07/23 16:00 12/07/23 16:00 12/07/23 16:00 12/07/23 16:00 Laboratory Results - last 24 hr 12/06/23 00:01: TSH 6.67 H, Free T4 1.15 12/06/23 22:03: WBC 8.1 D, RBC 4.46, Hgb 13.6 D, Hct 40.6, MCV 90.9, MCH 30.4, MCHC 33.5, RDW 13.8, Plt Count 226, MPV 8.5, Neut % (Auto) 63.6, Lymph % (Auto) 31.5, [place] % (Auto) 3.6, Eos % (Auto) 0.7, Baso % (Auto) 0.7, Neut # (Auto) 5.1, Lymph # (Auto) 2.6, [place] # (Auto) 0.3, Eos # (Auto) 0.1, Baso # (Auto) 0.1, D-Dimer 0.48, Sodium 140, Potassium 3.6, Chloride 106, Carbon Dioxide 22, Anion Gap 15.6 H, BUN 11 D, Creatinine 0.80, Estimated Creat Clear 109, Estimated GFR 87, Est GFR ( Amer) 106, Glucose 91, Calcium 10.4 H, Total Bilirubin 1.5 H, AST 26 D, ALT 21 D, Alkaline Phosphatase 51, Troponin I < 0.01, Total Protein 8.1 D, Albumin 4.9 D, Globulin 3.2, Albumin/Globulin Ratio 1.5, HCG, Quant 3509 H 12/07/23 01:36: Troponin I < 0.01 12/07/23 02:15: Urine Color Yellow, Urine Appearance Clear, Urine pH 6.5, Ur Specific [place] 1.010, Urine Protein Negative, Urine Glucose (UA) Negative, Urine Ketones 1+, Urine Blood Negative, Urine Nitrate Negative, Urine Bilirubin Negative, Urine Urobilinogen 0.2, Ur Leukocyte Esterase Trace, Urine RBC None, Urine WBC Occasional, Ur Squamous Epith Cells Occasional, Urine Bacteria None 12/07/23 05:00: WBC 6.8, RBC 4.19 L, Hgb 12.6, Hct 37.7, MCV 90.0, MCH 30.2, MCHC 33.5, RDW 13.7, Plt Count 215, MPV 8.3, Neut % (Auto) 65.9, Lymph % (Auto) 29.5, [place] % (Auto) 3.1, Eos % (Auto) 0.6, Baso % (Auto) 0.9, Neut # (Auto) 4.5, Lymph # (Auto) 2.0, [place] # (Auto) 0.2, Eos # (Auto) 0.0, Baso # (Auto) 0.1, Sodium 137, Potassium 3.4 L, Chloride 106, Carbon Dioxide 21 L, Anion Gap 13.4, BUN 8 D, Creatinine 0.60 D, Estimated Creat Clear 145, Estimated GFR 122, Est GFR ( Amer) 147 D, Glucose 94, Calcium 9.0, Troponin I < 0.01, Serum HCG, Qual Positive, HCG, Quant 3667 H I & O for Labs for Last 24 Hours: Intake & Output 12/05/23 12/06/23 12/07/23 12/08/23 11:59 11:59 11:59 11:59 Intake Total 270 / 270 360 / 360 Output Total 400 / 400 0 / 0 Balance -130 / -130 360 / 360 Weight 140 lb 14.006 oz HEENT Head: Present normocephalic Eyes: Present as per HPI ENT: Present normal exam Neck: Present normal inspection Respiratory: Present normal respiratory effort; Absent accessory muscle use Cardiac: Present Reg Rate and Rhythm GI: Present soft Rectal (female): Present deferred Extremities: Present normal inspection Skin: Present intact Assessment and Plan *Assessment and plan (1) Norovirus: Status: Acute Category: Medical Code(s): A08.11 - Acute gastroenteropathy due to [place] agent (2) Sinus tachycardia: Status: Acute Category: Medical Code(s): R00.0 - Tachycardia, unspecified (3) Chest pain during : Status: Acute Category: Medical Code(s): O99.891 - Other specified diseases and conditions complicating ; R07.9 - Chest pain, unspecified (4) Tobacco dependence syndrome: Status: Acute Category: Medical Code(s): F17.200 - Nicotine dependence, unspecified, uncomplicated (5) Anxiety: Status: Acute Category: Medical Code(s): F41.9 - Anxiety disorder, unspecified Plan She seemed to be doing much better this morning. We will continue with current treatment plan. I have suggested we had a rally pack for vitamins. We will see how she is doing tomorrow and if she is doing well she can be discharged home.
--- NOTE | 2023-12-07 18:26 | PC.NURSE ---
Pt has c/o CP, nausea and dizziness this shift. New orders received and carried out. She continues to be tachycardic periodically. Not tolerating meals well. She states she is going to take a shower after family brings her shampoo and soap. Call light within reach.
--- NOTE | 2023-12-07 19:37 | PC.NURSE ---
Pt c/o chest pain at this time, Pt presents with anxiety and discomfort, notified TRISTAN Liz, no new orders or interventions at this time.
[2023-12-08] VITALS: BP 126/79; PULSE 87; PULSE 90; RESP 18; TEMP 37.1; O2SAT 98
--- NOTE | 2023-12-08 03:59 | PC.NURSE ---
Pt is alert and oriented x4 and currently on RA. Pt has c/o moderate chest pain and anxiety this shift and has been treated per MAR. Pt HR has fluctuated from 85 to 110 BPM this shift, pt voices that she is concerned about HR. Pt significant other at bedside.
[2023-12-08 04:00] VITALS: BP 107/59; PULSE 76; PULSE 86; RESP 16; TEMP 36.9; O2SAT 97; BMI 23.6
[2023-12-08 07:11] LABS: Basophils % 0.7 % (0.1-2.0); Blood Urea Nitrogen 6 mg/dl (7-17); Calcium 8.8 mg/dl (8.4-10.2); Carbon Dioxide 21 mmol/L (22.0-30.0); Chloride 108 mmol/L (98-107); Creatinine Clearance Estimated 125 mL/min (50-200); Eosinophils % 0.6 % (0.1-12.0); Estimated Glomerular Filt Rate 102 ml/min (>60); GFR (African American) 123 ML/MIN (>60); Glucose 84 mg/dl (74-100); Hematocrit 36.7 % (37.0-47.0); Hemoglobin 12.3 g/dL (12.2-16.2); Lymphocytes # 1.9 K/mm3 (0.7-4.5); Lymphocytes % 30.7 % (10-50); Mean Corpuscular HGB Conc 33.7 g/dL (31.8-35.4); Mean Corpuscular Hemoglobin 30.3 pg (27.0-31.2); Mean Corpuscular Volume 90.1 fl (81-99); Mean Platelet Volume 8.9 fl (7.4-10.4); Monocytes # 0.2 K/mm3 (0.1-1.0); Monocytes % 3.3 % (1.7-9.3); Neutrophils % 64.7 % (37.0-80.0); Platelet Count 202 K/mm3 (142-424); Red Blood Count 4.07 M/mm3 (4.20-5.40); Red Cell Distribution Width 13.8 % (11.5-17.5); Sodium 139 mmol/L (136-145); White Blood Count 6.2 K/mm3 (4.8-10.8)
[2023-12-08 07:53] LABS: Anion Gap 13.8 mEq/L (5-15); Potassium 3.8 mmoL/L (3.5-5.1)
[2023-12-08 08:00] VITALS: BP 116/60; PULSE 80; PULSE 93; RESP 18; TEMP 36.8; O2SAT 99
--- NOTE | 2023-12-08 09:49 | P.DS_ITS ---
General Admission date:: 12/07/23 Discharge date: 12/08/23 HPI HPI HPI: This is a 23-year-old female 7 para 2, who presents emergency department today with complaints of chest pain. She was recently admitted for similar complaints and discharged yesterday. Presents back today with similar complaints of chest pain and tachycardia. States that she is becoming very dizzy and has had pounding chest pressure. She was also seen at [facility] yesterday for the same issue. She states that she became tachycardic again with pounding chest pain this evening so decided to seek treatment in the emergency department. Upon arrival to emergency department she was noted to tachycardic with heart rate in the 150s. She did have slowing of heart rate after being medicated with IV fluids. She reports vomiting has now subsided and her diarrhea has slowed but she persistently has dizziness that caused her to be nauseated. She describes the chest pain as chest pressure and pounding of her heart. Repeat emergency department workup notable for increasing beta-hCG level. TSH of 6.16 with a T4 of 1.14. CTA of her chest negative for PE. Given her continued tachycardia and complaints, she will be admitted to hospital service for further evaluation. Hospital Course Hospital Course Hospital Course: Patient represented to the ER after being discharged earlier in the day. Had recurrence of her chest pain and tachycardia. Still quite dry from norovirus. Worsening p.o. intake since getting home. Discussed case with the ER, request admission for IV fluids and further management. Medicine agreed to admit. Cardiology and gynecology consulted to assist with care. Problems addressed as follows: #Palpitations #Chest pain #Tachycardia Cardiac workup thus far negative. Imagine chest pain and palpitations are related to mild anxiety and likely mild dehydration. Echocardiogram obtained, cardiology to follow up Cardiology and OBGYN have cleared patient for discharge, patient also wishes to get discharged, total time 38 mins Exam Data for Last 24 hours Vital signs and Labs for Last 24 Hours: Temp Pulse Resp BP Pulse Ox O2 Del Method 98.2 F 93 H 18 116/60 99 Room Air 12/08/23 08:00 12/08/23 08:00 12/08/23 08:00 12/08/23 08:00 12/08/23 08:00 12/08/23 08:00 Laboratory Results - last 24 hr 12/08/23 06:24: WBC 6.2, RBC 4.07 L, Hgb 12.3, Hct 36.7 L, MCV 90.1, MCH 30.3, MCHC 33.7, RDW 13.8, Plt Count 202, MPV 8.9, Neut % (Auto) 64.7, Lymph % (Auto) 30.7, [place] % (Auto) 3.3, Eos % (Auto) 0.6, Baso % (Auto) 0.7, Neut # (Auto) 4.0, Lymph # (Auto) 1.9, [place] # (Auto) 0.2, Eos # (Auto) 0.0, Baso # (Auto) 0.0, Sodium 139, Potassium 3.8, Chloride 108 H, Carbon Dioxide 21 L, Anion Gap 13.8, BUN 6 L, Creatinine 0.70, Estimated Creat Clear 125, Estimated GFR 102, Est GFR ( Amer) 123, Glucose 84, Calcium 8.8 I & O for Last 24 hours: Intake & Output 12/05/23 12/06/23 12/07/23 12/08/23 23:59 23:59 23:59 23:59 Intake Total 2265 / 2875 610 / 610 Output Total 400 / 400 0 / 0 Balance 1865 / 2475 610 / 610 Weight 63.957 kg 63.9 kg 64.455 kg Constitutional Constitutional: no acute distress *Routine HEENT Exam Head: Present normocephalic Eye: Present EOMI and PERRL ENT: Present mucous membranes moist *Routine Neck Exam Neck: Present supple; Absent lymphadenopathy *Routine Respiratory Exam Respiratory: Present CTA bilaterally *Routine Cardiovascular Exam Cardiovascular: Present RRR *Routine Abdominal Exam Abdominal: Present soft and normoactive bowel sounds; Absent tenderness *Routine Extremities Exam Extremities: Absent cyanosis, clubbing or edema *Routine Skin Exam Skin: Present warm; Absent rash *Routine Neurological Exam Neurological: Present alert and oriented X3 Results Data Completed and Pending Labs on day of discharge: Labs from last 24 hours 12/08/23 06:24 WBC 6.2 RBC 4.07 L Hgb 12.3 Hct 36.7 L MCV 90.1 MCH 30.3 MCHC 33.7 RDW 13.8 Plt Count 202 MPV 8.9 Neut % (Auto) 64.7 Lymph % (Auto) 30.7 [place] % (Auto) 3.3 Eos % (Auto) 0.6 Baso % (Auto) 0.7 Neut # (Auto) 4.0 Lymph # (Auto) 1.9 [place] # (Auto) 0.2 Eos # (Auto) 0.0 Baso # (Auto) 0.0 Sodium 139 Potassium 3.8 Chloride 108 H Carbon Dioxide 21 L Anion Gap 13.8 BUN 6 L Creatinine 0.70 Estimated Creat Clear 125 Estimated GFR 102 Est GFR ( Amer) 123 Glucose 84 Calcium 8.8 DS: Diagnosis Discharge Diagnosis (1) Norovirus: Status: Acute Code(s): A08.11 - Acute gastroenteropathy due to [place] agent (2) Sinus tachycardia: Status: Acute Code(s): R00.0 - Tachycardia, unspecified (3) Chest pain during : Status: Acute Code(s): O99.891 - Other specified diseases and conditions complicating ; R07.9 - Chest pain, unspecified (4) Tobacco dependence syndrome: Status: Acute Code(s): F17.200 - Nicotine dependence, unspecified, uncomplicated (5) Anxiety: Status: Acute Code(s): F41.9 - Anxiety disorder, unspecified Meds Home Medications and Allergies Home Medications Medication Instructions Recorded Confirmed Type vitamin no.180-ferrous 1 tab PO DAILY 12/05/23 12/07/23 History fumarate 27 mg-folic acid 1 mg tablet ( Plus Vitamin-Mineral) hydroxyzine HCl 25 mg tablet 25 mg PO TIDP PRN anxiety 12/07/23 12/07/23 History ondansetron HCl 4 mg tablet 4 mg PO Q8H PRN nausea and 12/08/23 Rx vomiting 3 days #9 tabs New Prescriptions to Start Prescriptions: ondansetron HCl Katrin Kaminski Allergies Allergy/AdvReac Type Severity Reaction Status Date / Time amoxicillin [From Augmentin] Allergy Verified 07/24/22 14:56 clavulanic acid Allergy Verified 07/24/22 14:56 [From Augmentin] Penicillins Allergy Verified 07/24/22 14:56 Discharge Plan Disposition Patient Disposition: Home, Self-Care Condition: Good Follow up Plan Follow up with: Jim Cash MD [Staff Physician] - 12/22/23 1:00 pm Prescriptions/Medication Reconciliation: New ondansetron HCl 4 mg tablet 4 mg PO Q8H PRN (Reason: nausea and vomiting) 3 Days Qty: 9 0RF Continued Plus Vitamin-Mineral 27 mg iron- 1 mg Tablet 1 tab PO DAILY hydroxyzine HCl 25 mg tablet 25 mg PO TIDP PRN (Reason: anxiety) Problem Reconciliation Problems Reviewed?: Yes Patient Discharge Instructions ACTIVITY: Ambulate as tolerated DIET: continue same diet Patient Instructions: DI for Chest Pain, DI for Norovirus Infection Providers Primary Care Provider: Provider,Referral Admit Provider: Shalonda Moyer Attending Provider: Sahil Gutierrez
[2023-12-08] MEDS: hydrOXYzine pamoate 25MG CAPSULE 25 MG PO (11:02)
--- NOTE | 2023-12-09 12:45 | CARE MANAGER ---
Contacted patient related to hospital discharge. She states she is tachycardic and stll running to the bathroom . She is concerned and is going to try to go to PCP or cadiology sooner than scheduled. She does have her Zofran. She denies other questions or concerns. JANELL Neil
--- NOTE | 2023-12-10 22:54 | PC.NURSE ---
medical records sent to [facility].
== END 2023-12-08 11:10 | disposition home or self-care (01) ==
LOC: ER 22:18 → 2ND 12-07 01:35
PROVIDERS: Emergency Medicine; Admitting Provider Nurse Practitioner Acute Care; Emergency Provider Emergency Medicine; Visit Provider Internal Medicine Adolescent Medicine
DX: Z3A.01 Less than 8 weeks gestation of pregnancy (principal); R07.9 Chest pain, unspecified; A08.11 Acute gastroenteropathy due to Norwalk agent; O99.891 Other specified diseases and conditions complicating pregnancy; E86.0 Dehydration; R00.0 Tachycardia, unspecified; F41.9 Anxiety disorder, unspecified; E87.6 Hypokalemia; R79.89 Other specified abnormal findings of blood chemistry
CPT/HCPCS: 36415; 71045; 71275; 80048; 80053; 81001; 84439; 84443; 84484; 84702; 84703; 85025; 85378; 93005; 93306; 99285; G0378; J2405; Q9967

== ENCOUNTER 2024-01-20 15:46 | Emergency (ER) | payer SELFPAY ==
[2024-01-20 15:51] VITALS: BP 147/92; PULSE 88; O2SAT 99
--- NOTE | 2024-01-20 15:53 | ECG_ITS ---
APPROVED REPORT Exam: Resting ECG HR:79 bpm ECG Measurements Heart Rate 79 AXES SC 147 P 69 QRSd 80 QRS 71 QT 339 T 64 QTc 374 Conclusion SINUS RHYTHM MINIMAL ST DEPRESSION [0.025+ mV ST DEPRESSION] BORDERLINE ECG Electronically signed by : GLORIA SAMUEL, 01/20/2024 21:39:26
[2024-01-20 15:56] VITALS: BP 147/92; PULSE 85; RESP 15; TEMP 36.9; O2SAT 100; BMI 22.9
--- NOTE | 2024-01-20 16:05 | ED_ITS ---
<Statement entered by Chaz Blum MD - 01/20/24 17:55> I was consulted by the DIMITRI, and we discussed the complexity of the problems being addressed. I approved the treatment and management plan for this patient's care in the emergency department, thus performing a substantive portion of the medical decision making. Chaz Blum MD Discharge Plan Disposition Patient Disposition: Home, Self-Care Condition: Good Chief Complaint: Recheck/Abnormal Lab/Rx Prescriptions Prescriptions: No Action metoprolol tartrate 25 mg tablet 12.5 mg PO HS Qty: 90 2RF Plus Vitamin-Mineral 27 mg iron- 1 mg Tablet 1 tab PO DAILY hydroxyzine HCl 25 mg tablet 25 mg PO TIDP PRN (Reason: anxiety) ondansetron HCl 4 mg tablet 4 mg PO Q8H PRN (Reason: nausea and vomiting) 3 Days Qty: 9 0RF Referrals Follow up/Referrals: Molly Louis MD [Primary Care Provider] - See instructions Activity Restrictions/Add. Instructions Additional Instructions/Restrictions: Please keep your scheduled follow-up with cardiology. Return to ER for any worsening signs or symptoms. Please keep your scheduled follow-up with CEL[facility] STRIPPER. Clinical Impressions Clinical Impression: Palpitations Discharge ED Provider: Chaz Blum General Adult HPI <BOOKER Lo - Last Filed: 01/20/24 16:58> General Chief complaint: Recheck/Abnormal Lab/Rx Stated complaint: sent by Dr. Tran , heart flutters Time Seen by Provider: 01/20/24 16:05 Mode of Arrival: Ambulatory Source of Information: Patient Limitations: No Limitations Description of Symptoms (Recalled from ER Triage Doc. by RN): pt states last night when she was showering she, saw actual bright starts. pt states she has never had this happen before and it was approximately 1 minutes. pt also reports she is 11wks , LMP 11/03/23. pt reports she has 2 living children and has had 5 pregnancys. pt states she was hospitalized about 1 month ago for tachycardia and has since been put on metotoprolol by . since this the pt states she has experienced her heart double beating. pt denies any other medical hx. History of Present Illness HPI narrative: Patient presents for evaluation of palpitation and seeing stars . Patient states that she was in the shower last night and was seeing stars and bright lights while she was also having palpitations. Patient states that this lasted for about a minute and has not recurred since. Patient also states that she has been recent admitted twice for tachycardia after a norovirus infection and has a cardiac workup ongoing secondary to that. Patient is 11 weeks and is G7, P2 following with Dr. [place]. Patient however is asymptomatic at the moment with no palpitations and not with any altered sensorium. Related Data Home Medications Medication Instructions Recorded Confirmed vitamin no.180-ferrous 1 tab PO DAILY 12/05/23 01/06/24 fumarate 27 mg-folic acid 1 mg tablet ( Plus Vitamin-Mineral) hydroxyzine HCl 25 mg tablet 25 mg PO TIDP PRN anxiety 12/07/23 01/06/24 Previous Rx's Medication Instructions Recorded ondansetron HCl 4 mg tablet 4 mg PO Q8H PRN nausea and 12/08/23 vomiting 3 days #9 tabs metoprolol tartrate 25 mg tablet 12.5 mg (1/2 x 25 mg) PO HS #90 01/06/24 tabs Allergies Allergy/AdvReac Type Severity Reaction Status Date / Time amoxicillin [From Augmentin] Allergy Verified 01/20/24 16:02 clavulanic acid Allergy Verified 01/20/24 16:02 [From Augmentin] Penicillins Allergy Verified 01/20/24 16:02 [facility] <BOOKER Lo - Last Filed: 01/20/24 16:58> [facility] Disclaimer: The information contained in this section may have been updated after the patient was seen, as this information can be updated by other users. 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 Tobacco dependence syndrome Surgical History Hx of dilation and curettage Hx of tonsillectomy Family History Other Family history of myocardial infarction Family history of stroke Social History Smoking Status: Former smoker tobacco type: e-cigarettes second hand exposure: Yes alcohol intake: current alcohol intake frequency: holidays/special occasions only substance use type: denies use current occupational status: other Travel in the last 8 weeks: None housing: house <BOOKER Lo - Last Filed: 01/20/24 16:58> ROS Obtained: Yes Systems reviewed as appropriate & no additional complaints except as documented Physical Exam <BOOKER Lo - Last Filed: 01/20/24 16:58> General General appearance: alert and in no apparent distress Respiratory Respiratory exam: Present normal lung sounds bilaterally Cardiovascular Cardiovascular exam: Present regular rate, normal rhythm and normal heart sounds Abdominal Exam Abdominal exam: Present soft and normal bowel sounds; Absent tenderness Neurological Exam Neurological exam: Present alert, oriented X3 and CN II-XII intact Psychiatric Psychiatric exam: Present normal affect and normal mood Medical Decision Making <BOOKER Lo - Last Filed: 01/20/24 16:58> Medical Records Medical records reviewed: Yes I reviewed the patient's medical records. Paresh Inquiry Pt receiving controlled substance: No Vital Signs: 01/20/24 15:51 01/20/24 15:56 01/20/24 16:09 Temperature 98.5 F Temperature Source Oral Pulse Rate 88 86 Pulse Rate [Left] 85 Respiratory Rate 15 12 Blood Pressure 147/92 H 138/99 H Blood Pressure [Right Arm] 147/92 H Blood Pressure Mean [Right Arm] 110 Blood Pressure Source [Right Arm] Automatic Cuff Blood Pressure Position [Right Arm] Sitting 02 Sat by Pulse Oximetry 99 100 100 Oxygen Delivery Method Room Air Lab Data Lab results reviewed: Yes I reviewed the patient's lab results. Lab Results 01/20/24 15:59: WBC 7.9, RBC 4.24, Hgb 12.8, Hct 38.3, MCV 90.2, MCH 30.2, MCHC 33.4, RDW 14.2, Plt Count 183, MPV 9.1, Neut % (Auto) 72.0, Lymph % (Auto) 24.8, Sullivan % (Auto) 2.4, Eos % (Auto) 0.3, Baso % (Auto) 0.5, Neut # (Auto) 5.7, Lymph # (Auto) 2.0, Sullivan # (Auto) 0.2, Eos # (Auto) 0.0, Baso # (Auto) 0.0, Sodium 135 L, Potassium 3.7, Chloride 105, Carbon Dioxide 21 L, Anion Gap 12.7, BUN 7, Creatinine 0.60, Estimated Creat Clear 142, Estimated GFR 122, Est GFR ( Amer) 147, Glucose 96, Calcium 9.2, Magnesium 1.9 01/20/24 15:59 01/20/24 15:59 Orders (Tests/Meds): ORDERS Category Date Time Status BMP [Basic Metabolic Panel] Stat Lab 01/20/24 15:59 Results CBC w/Auto Diff [Complete Blood Count Auto Diff] Stat Lab 01/20/24 15:59 Completed Magnesium Stat Lab 01/20/24 15:59 Results TSH [Thyroid Stimulating Hormone] Stat Lab 01/20/24 15:59 Results Trop I [Troponin I] Stat Lab 01/20/24 15:59 Results Troponin I Q3H Lab 01/20/24 19:30 Ordered Troponin I Q3H Lab 01/20/24 22:30 Ordered Medical Decision Narrative: In summary patient is a 23-year-old female who presents to the emergency department for evaluation of palpitation and seeing stars and bright lights yesterday. Patient is hemodynamically stable upon arrival, afebrile. Physical exam is unremarkable and nonfocal including no abdominal pain no dysuria no vaginal bleeding no nausea vomiting diarrhea. Differential diagnosis includes arrhythmia versus vasovagal response etc. Initial workup will be conducted with hematologic labs and twelve-lead EKG. Initial interventions would have been a transvaginal ultrasound had the patient had any abdominal or related symptoms which she does not therefore is deferred. Initial workup reviewed by me shows that her hematologic labs are nonactionable. Upon repeat evaluation patient is still asymptomatic currently. Given this patient is referred back to cardiology for completion of her cardiac workup which includes Holter monitoring. <Chaz Blum MD - Last Filed: 01/20/24 16:39> Vital Signs: 01/20/24 15:51 01/20/24 15:56 01/20/24 16:09 Temperature 98.5 F Temperature Source Oral Pulse Rate 88 86 Pulse Rate [Left] 85 Respiratory Rate 15 12 Blood Pressure 147/92 H 138/99 H Blood Pressure [Right Arm] 147/92 H Blood Pressure Mean [Right Arm] 110 Blood Pressure Source [Right Arm] Automatic Cuff Blood Pressure Position [Right Arm] Sitting 02 Sat by Pulse Oximetry 99 100 100 Oxygen Delivery Method Room Air Lab Data Lab Results 01/20/24 15:59: WBC 7.9, RBC 4.24, Hgb 12.8, Hct 38.3, MCV 90.2, MCH 30.2, MCHC 33.4, RDW 14.2, Plt Count 183, MPV 9.1, Neut % (Auto) 72.0, Lymph % (Auto) 24.8, Sullivan % (Auto) 2.4, Eos % (Auto) 0.3, Baso % (Auto) 0.5, Neut # (Auto) 5.7, Lymph # (Auto) 2.0, Sullivan # (Auto) 0.2, Eos # (Auto) 0.0, Baso # (Auto) 0.0, Sodium 135 L, Potassium 3.7, Chloride 105, Carbon Dioxide 21 L, Anion Gap 12.7, BUN 7, Creatinine 0.60, Estimated Creat Clear 142, Estimated GFR 122, Est GFR ( Amer) 147, Glucose 96, Calcium 9.2, Magnesium 1.9 Orders (Tests/Meds): ORDERS Category Date Time Status BMP [Basic Metabolic Panel] Stat Lab 01/20/24 15:59 Results CBC w/Auto Diff [Complete Blood Count Auto Diff] Stat Lab 01/20/24 15:59 Completed Magnesium Stat Lab 01/20/24 15:59 Results TSH [Thyroid Stimulating Hormone] Stat Lab 01/20/24 15:59 Results Trop I [Troponin I] Stat Lab 01/20/24 15:59 Results Troponin I Q3H Lab 01/20/24 19:30 Ordered Troponin I Q3H Lab 01/20/24 22:30 Ordered ECG Data Tracing #1: Independently interpreted by me rate of 79, rhythm is regular, axis is normal, no ST elevation in anatomical contiguous leads, QTc 374, no dagger Q waves in the lateral leads, no evidence of Brugada. Critical Care <BOOKER Lo - Last Filed: 01/20/24 16:58> Critical Care Time Critical Care Time: No
[2024-01-20 16:09] VITALS: BP 138/99; PULSE 86; RESP 12; O2SAT 100
[2024-01-20 16:28] LABS: Basophils % 0.5 % (0.1-2.0); Eosinophils % 0.3 % (0.1-12.0); Hematocrit 38.3 % (37.0-47.0); Hemoglobin 12.8 g/dL (12.2-16.2); Lymphocytes % 24.8 % (10-50); Mean Corpuscular HGB Conc 33.4 g/dL (31.8-35.4); Mean Corpuscular Hemoglobin 30.2 pg (27.0-31.2); Mean Corpuscular Volume 90.2 fl (81-99); Mean Platelet Volume 9.1 fl (7.4-10.4); Monocytes # 0.2 K/mm3 (0.1-1.0); Monocytes % 2.4 % (1.7-9.3); Neutrophils # 5.7 K/mm3 (1.8-7.8); Platelet Count 183 K/mm3 (142-424); Red Blood Count 4.24 M/mm3 (4.20-5.40); Red Cell Distribution Width 14.2 % (11.5-17.5); White Blood Count 7.9 K/mm3 (4.8-10.8)
[2024-01-20 16:30] VITALS: BP 135/87; PULSE 102; RESP 14; O2SAT 99
[2024-01-20 16:30] LABS: Chloride 105 mmol/L (98-107); Potassium 3.7 mmoL/L (3.5-5.1); Sodium 135 mmol/L (136-145)
[2024-01-20 16:33] LABS: Anion Gap 12.7 mEq/L (5-15); Blood Urea Nitrogen 7 mg/dl (7-17); Calcium 9.2 mg/dl (8.4-10.2); Carbon Dioxide 21 mmol/L (22.0-30.0); Creatinine Clearance Estimated 142 mL/min (50-200); Estimated Glomerular Filt Rate 122 ml/min (>60); GFR (African American) 147 ML/MIN (>60); Glucose 96 mg/dl (74-100)
[2024-01-20 16:34] LABS: Magnesium 1.9 mg/dl (1.6-2.3)
--- NOTE | 2024-01-20 16:48 | PC.NURSE ---
Rounded on pt. No needs voiced. Call light within reach and visitor at BS.
[2024-01-20 16:49] LABS: Troponin I < 0.01 ng/ml (0.00-0.034)
[2024-01-20 17:03] VITALS: BP 123/77; PULSE 83; RESP 16; TEMP 36.9; O2SAT 98
[2024-01-20 17:05] LABS: Thyroid Stimulating Hormone 0.83 uIU/mL (0.465-4.68)
== END 2024-01-20 17:24 | disposition home or self-care (01) ==
PROVIDERS: Physician Assistant; Emergency Provider Emergency Medicine; PCP Family Medicine
DX: O26.891 Other specified pregnancy related conditions, first trimester (principal); R00.2 Palpitations; Z3A.11 11 weeks gestation of pregnancy
CPT/HCPCS: 80048; 83735; 84443; 84484; 85025; 93005; 99283

== ENCOUNTER 2024-01-22 15:47 | Emergency (ER) | payer SELFPAY ==
[2024-01-22] VITALS (9 sets, daily range): BP systolic 120–152; BP diastolic 78–94; PULSE 90–110; RESP 12–18; TEMP 36.6–36.7; O2SAT 99–100; BMI 22.9
--- NOTE | 2024-01-22 15:52 | ECG_ITS ---
APPROVED REPORT Exam: Resting ECG HR:103 bpm ECG Measurements Heart Rate 103 AXES WY 145 P 82 QRSd 74 QRS 75 QT 317 T 61 QTc 376 Conclusion SINUS T[address]YCARDIA MODERATE ST DEPRESSION without reciprocal elevations Electronically signed by : MOSES RAY, 01/22/2024 17:45:53
--- NOTE | 2024-01-22 16:17 | US_ITS ---
PROCEDURE INFORMATION: Exam: US , Transvaginal Exam date and time: 01/22/2024 4:29 PM Age: 23 years old Clinical indication: Lmp or gestational age (in weeks): 11 w; Other: HTN, tachy, passing out, discoloration; ; Additional info: , HTN, tachycardia LABS AND CLINICAL REPORTS: Gestational age (Established): 11 w 3 d Estimated due date (Established): 08/09/2024 TECHNIQUE: Imaging protocol: Real-time transvaginal obstetrical ultrasound of the maternal pelvis with image documentation. Transvaginal imaging was used for better evaluation of the fetus, adnexa, and/or cervix. COMPARISON: US OB TRANSVAGINAL 12/05/2023 2:32 PM FINDINGS: Gestation: Yolk sac measures 8.3 mm. heart rate: 170 bpm BIOMETRY: Gestational age (AUA): 12 w 4 d Estimated due date (AUA): 08/01/2024 [place] rump length (CRL): 53.84 mm. EGA (CRL) is 12 w 0 d MATERNAL: Right ovary/adnexa: Right ovary measures 3.02 cm x 3.87 cm x 3.93 cm. Right ovarian volume is 24.05 mL. There is a simple appearing right ovarian cysts measuring up to 3.2 cm. Left ovary/adnexa: Left ovary measures 2.37 cm x 1.82 cm x 1.39 cm. Left ovarian volume is 3.14 mL. IMPRESSION: Single live intrauterine gestation measuring 12 weeks four days without acute pathology identified.
[2024-01-22] MEDS: MAGNESIUM SULFATE IN WATER 2 GM/50 ML PIGGYBACK IV (16:24)
[2024-01-22] MEDS: LACTATED RINGERS 1000ML 1,000 ML 999 ML IV (16:26)
[2024-01-22 16:27] LABS: Microscopic, Urine URINE MICROSCOPIC (MICROSCOPIC)
[2024-01-22 16:29] LABS: Basophils % 0.3 % (0.1-2.0); Eosinophils % 0.4 % (0.1-12.0); Hematocrit 35.3 % (37.0-47.0); Hemoglobin 12.6 g/dL (12.2-16.2); Mean Corpuscular HGB Conc 35.6 g/dL (31.8-35.4); Mean Corpuscular Hemoglobin 31.3 pg (27.0-31.2); Mean Corpuscular Volume 87.9 fl (81-99); Mean Platelet Volume 8.6 fl (7.4-10.4); Monocytes # 0.2 K/mm3 (0.1-1.0); Monocytes % 2.7 % (1.7-9.3); Neutrophils # 6.4 K/mm3 (1.8-7.8); Neutrophils % 73.6 % (37.0-80.0); Platelet Count 160 K/mm3 (142-424); Red Blood Count 4.02 M/mm3 (4.20-5.40); White Blood Count 8.7 K/mm3 (4.8-10.8)
[2024-01-22 16:31] LABS: Appearance,Urine CLEAR (Clear); Bilirubin,Urine Negative (Negative); Blood, Urine Negative (Negative); Color,Urine YELLOW (Yellow); Glucose,Urine (UA) Negative (Negative); Ketones,Urine TRACE (Negative); Leukocyte Esterase,Urine 2+ (Negative); Nitrate,Urine Negative (Negative); Protein,Urine Negative (Negative); Urobilinogen,Urine 0.2 EU/dl (0.2)
--- NOTE | 2024-01-22 16:33 | PC.NURSE ---
pt to radiology for TV ultrasound
[2024-01-22 16:35] LABS: Alanine Aminotransferase 16 U/L (12-78); Albumin Level 4.1 g/dl (3.5-5.0); Albumin/Globulin Ratio 1.3 (1.1-1.8); Alkaline Phosphatase 44 U/L (38-126); Anion Gap 14.3 mEq/L (5-15); Aspartate Amino Transferase 23 U/L (14-36); Bilirubin,Total 1.3 mg/dl (0.2-1.3); Blood Urea Nitrogen 11 mg/dl (7-17); Calcium 9.3 mg/dl (8.4-10.2); Carbon Dioxide 19 mmol/L (22.0-30.0); Chloride 104 mmol/L (98-107); Creatinine Clearance Estimated 121 mL/min (50-200); Estimated Glomerular Filt Rate 102 ml/min (>60); GFR (African American) 123 ML/MIN (>60); Globulin 3.1 g/dL (1.3-3.2); Glucose 97 mg/dl (74-100); Potassium 3.3 mmoL/L (3.5-5.1); Sodium 134 mmol/L (136-145); Total Protein,Serum 7.2 g/dl (6.3-8.2)
[2024-01-22 16:38] LABS: Lactate Venous 1.1 mmol/L (0.4-2.0); VBG Base Excess -5.7 mmol/L (-2.4-2.3); VBG HCO3 18.8 mmol/L (23-30); VBG Oxygen Saturation 75.1 % (50-70); VBG PCO2 30.1 mmol/L (35-51); VBG PH 7.41 mmol/L (7.31-7.41); VBG PO2 37.4 mmol/L (28-40); VBG Total CO2 19.7 mmol/L (23-27)
[2024-01-22 16:40] LABS: D-Dimer 0.55 ug/mL (0.0-0.5)
--- NOTE | 2024-01-22 16:40 | HMH.EDGENADL ---
Discharge Plan Disposition Patient Disposition: Home, Self-Care Prescriptions Prescriptions: New cephalexin 500 mg capsule 1,000 mg PO BID 7 Days Qty: 28 0RF No Action metoprolol tartrate 25 mg tablet 12.5 mg PO HS Qty: 90 2RF Plus Vitamin-Mineral 27 mg iron- 1 mg Tablet 1 tab PO DAILY hydroxyzine HCl 25 mg tablet 25 mg PO TIDP PRN (Reason: anxiety) ondansetron HCl 4 mg tablet 4 mg PO Q8H PRN (Reason: nausea and vomiting) 3 Days Qty: 9 0RF Referrals Follow up/Referrals: Molly Louis MD [Primary Care Provider] - See instructions Activity Restrictions/Add. Instructions Additional Instructions/Restrictions: Call your family doctor to establish care for this visit to the emergency department and schedule follow-up within 48 hours to ensure improvement. If you have any worsening of your condition or any other concerning signs or symptoms, return to the emergency department or your primary care doctor for further evaluation. Call your ART SUPERVISOR and aquatics assistant department head to follow-up as well. Take Keflex twice daily for 7 days to treat UTI. Clinical Impressions Clinical Impression: Palpitations, Near syncope Instructions Patient Instructions: DI for Syncope in Adults (Fainting), DI for Syncope in Children (Fainting) Discharge ED Provider: Juni Leonardo General Adult HPI General Chief complaint: Syncope Stated complaint: SYNCOPE Time Seen by Provider: 01/22/24 15:47 Mode of Arrival: EMS Source of Information: Patient Limitations: No Limitations Description of Symptoms (Recalled from ER Triage Doc. by RN): Pt states she was sitting in her chair at work when she suddenly became clammy, felt her heart skipping , and her fingers went numb. History of Present Illness HPI narrative: Please note that above description of symptoms, in this electronic medical record under categorization of recalled from ER triage doctor by RN are reflective of an initial nursing assessment, however, is not reflective of my full history and physical exam that was personally taken and clarified. Consequentially, this preceding description of symptoms, which may include the patient's categorized chief complaint in the EMR, do not reflect my personal clinical impression, and the ultimate description of history of present illness and patient stated complaints should be deferred to this section of the note. Unless stated otherwise or congruent with this section of the note, additional signs, symptoms, or incongruence should be interpreted as inaccurate with my clinical impression. Related Data Home Medications Medication Instructions Recorded Confirmed vitamin no.180-ferrous 1 tab PO DAILY 12/05/23 01/06/24 fumarate 27 mg-folic acid 1 mg tablet ( Plus Vitamin-Mineral) hydroxyzine HCl 25 mg tablet 25 mg PO TIDP PRN anxiety 12/07/23 01/06/24 Previous Rx's Medication Instructions Recorded ondansetron HCl 4 mg tablet 4 mg PO Q8H PRN nausea and 12/08/23 vomiting 3 days #9 tabs metoprolol tartrate 25 mg tablet 12.5 mg (1/2 x 25 mg) PO HS #90 01/06/24 tabs cephalexin 500 mg capsule 1,000 mg (2 x 500 mg) PO BID 7 01/22/24 days #28 caps Allergies Allergy/AdvReac Type Severity Reaction Status Date / Time amoxicillin [From Augmentin] Allergy Verified 01/20/24 16:02 clavulanic acid Allergy Verified 01/20/24 16:02 [From Augmentin] Penicillins Allergy Verified 01/20/24 16:02 [facility] Disclaimer: The information contained in this section may have been updated after the patient was seen, as this information can be updated by other users. 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 Tobacco dependence syndrome Surgical History Hx of dilation and curettage Hx of tonsillectomy Family History Other Family history of myocardial infarction Family history of stroke Social History Smoking Status: Never smoker second hand exposure: Yes alcohol intake: current alcohol intake frequency: holidays/special occasions only substance use type: denies use current occupational status: other Travel in the last 8 weeks: None housing: house ROS Obtained: Yes All systems reviewed & no additional complaints except as documented Physical Exam General General appearance: alert and in no apparent distress Head Head exam: atraumatic and normocephalic Eye Eye exam: Present normal appearance, PERRL and EOMI ENT ENT exam: Present mucous membranes moist Neck Neck exam: Present normal inspection, full ROM and trachea midline Respiratory Respiratory exam: Present normal lung sounds bilaterally; Absent respiratory distress, wheezes, stridor, accessory muscle use or prolonged expiratory phase Cardiovascular Cardiovascular exam: Present normal rhythm and tachycardia Abdominal Exam Abdominal exam: Present soft; Absent distention, tenderness, guarding, rebound or rigidity Extremities Exam Extremities exam: Absent edema Neurological Exam Neurological exam: Present alert, oriented X3, CN II-XII intact and normal gait; Absent motor sensory deficit Skin Skin exam: Present warm and dry; Absent diaphoresis or erythema Medical Decision Making Medical Records Medical records reviewed: Yes I reviewed the patient's medical records. Paresh Inquiry Pt receiving controlled substance: No Paresh was queried for this patient: No Vital Signs: 01/22/24 15:54 01/22/24 16:01 01/22/24 16:10 Temperature 98.0 F Temperature Source Oral Pulse Rate 102 H 108 H Pulse Rate [Right Brachial] 110 H Respiratory Rate 18 Blood Pressure 144/84 H 152/92 H Blood Pressure [Right Arm] 144/84 H Blood Pressure Mean 104 106 Blood Pressure Mean [Right Arm] 104 Blood Pressure Source [Right Arm] Automatic Cuff 02 Sat by Pulse Oximetry 100 99 100 Oxygen Delivery Method Room Air Room Air Room Air 01/22/24 16:13 01/22/24 17:00 01/22/24 17:30 Temperature Temperature Source Pulse Rate 102 H 93 H 102 H Pulse Rate [Right Brachial] Respiratory Rate 16 Blood Pressure 151/94 H 130/86 126/82 Blood Pressure [Right Arm] Blood Pressure Mean 104 95 Blood Pressure Mean [Right Arm] Blood Pressure Source [Right Arm] 02 Sat by Pulse Oximetry 100 100 100 Oxygen Delivery Method Room Air Room Air Room Air 01/22/24 18:00 Temperature Temperature Source Pulse Rate 93 H Pulse Rate [Right Brachial] Respiratory Rate 14 Blood Pressure 127/81 Blood Pressure [Right Arm] Blood Pressure Mean Blood Pressure Mean [Right Arm] Blood Pressure Source [Right Arm] 02 Sat by Pulse Oximetry 100 Oxygen Delivery Method Room Air Lab Data Lab Results 01/22/24 15:51: WBC 8.7, RBC 4.02 L, Hgb 12.6, Hct 35.3 L, MCV 87.9, MCH 31.3 H, MCHC 35.6 H, RDW 14.0, Plt Count 160, MPV 8.6, Neut % (Auto) 73.6, Lymph % (Auto) 23.0, [place] % (Auto) 2.7, Eos % (Auto) 0.4, Baso % (Auto) 0.3, Neut # (Auto) 6.4, Lymph # (Auto) 2.0, [place] # (Auto) 0.2, Eos # (Auto) 0.0, Baso # (Auto) 0.0, D-Dimer 0.55 H, Sodium 134 L, Potassium 3.3 L, Chloride 104, Carbon Dioxide 19 L, Anion Gap 14.3, BUN 11 D, Creatinine 0.70, Estimated Creat Clear 121, Estimated GFR 102, Est GFR ( Amer) 123, Glucose 97, Lactate 1.0, Calcium 9.3, Total Bilirubin 1.3, AST 23, ALT 16, Alkaline Phosphatase 44, Troponin I < 0.01, NT-Pro-B Natriuret Pep 69.3, Total Protein 7.2, Albumin 4.1, Globulin 3.1, Albumin/Globulin Ratio 1.3, TSH 1.43 D, HCG, Quant 060116 H, Urine Color Yellow, Urine Appearance Clear, Urine pH 6.0, Ur Specific [place] 1.010, Urine Protein Negative, Urine Glucose (UA) Negative, Urine Ketones Trace, Urine Blood Negative, Urine Nitrate Negative, Urine Bilirubin Negative, Urine Urobilinogen 0.2, Ur Leukocyte Esterase 2+ A, Urine RBC None, Urine WBC Occasional, Ur Squamous Epith Cells Occasional, Urine Bacteria Trace 01/22/24 16:17: VBG pH 7.41, VBG pCO2 30.1 L, VBG pO2 37.4, VBG HCO3 18.8 L, VBG Total CO2 19.7 L, VBG O2 Saturation 75.1 H, VBG Base Excess -5.7 L, VBG Lactic Acid 1.1 01/22/24 15:51 01/22/24 15:51 Orders (Tests/Meds): ED MEDICATIONS Discontinued Medications Generic Name Dose Route Start Last Admin Trade Name Freq PRN Reason Stop Dose Admin Magnesium Sulfate 2 gm in 50 mls @ 50 mls/hr 01/22/24 16:17 01/22/24 16:24 Magnesium Sulfate 2gm/50ml Premix IV 01/22/24 17:16 50 mls/hr ONCE ONE Administration Lactated Ringer's 1,000 mls @ 999 mls/hr 01/22/24 16:17 01/22/24 16:26 Lactated Ringer's 1000 Ml Bag IV 01/22/24 17:17 999 mls/hr .Q1H1M ONE Administration Ceftriaxone Sodium 1 gm/ 50 mls @ 100 mls/hr 01/22/24 17:14 01/22/24 17:41 Sodium Chloride IV 01/22/24 17:43 100 mls/hr ONCE ONE Administration Potassium Chloride 40 meq 01/22/24 18:30 01/22/24 18:37 Potassium Chloride 20meq Tab PO 01/22/24 18:31 40 meq ONCE ONE Administration ORDERS Category Date Time Status POCUS Point of Care (ER Only) Stat Exams 01/22/24 16:46 Completed CBC w/Auto Diff [Complete Blood Count Auto Diff] Stat Lab 01/22/24 15:51 Completed CMP [Comprehensive Metabolic Panel] Stat Lab 01/22/24 15:51 Completed D-Dimer Stat Lab 01/22/24 15:51 Completed HCG,Quantitative Stat Lab 01/22/24 15:51 Completed Lactic Acid Stat Lab 01/22/24 15:51 Completed NT Pro Brain Natriuretic Pep. Stat Lab 01/22/24 15:51 Completed TSH [Thyroid Stimulating Hormone] Stat Lab 01/22/24 15:51 Completed Trop I [Troponin I] Stat Lab 01/22/24 15:51 Completed Troponin I Q3H Lab 01/22/24 18:27 Received Troponin I Q3H Lab 01/22/24 22:30 Ordered UA [Urinalysis and Microscopic] Stat Lab 01/22/24 15:51 Completed Urine Culture Stat Micro 01/22/24 15:51 Received VBG [Venous Blood Gas] Stat RT 01/22/24 16:17 Completed US OB transvaginal Stat Ultrasound 01/22/24 16:17 Completed Medical Decision Narrative: 23-year-old female with history of [place] syndrome, syncope, who is presenting with tachycardia, near syncope. Patient states that she was at work doing nothing in particular and this is 1 of many episodes where patient has nearly syncopized. She states that her lips and tongue went numb, tingling, had pallor, diaphoresis, tunnel vision before almost passing out. No chest pain, shortness of breath. She does state that she had palpitations during this episode and is currently on palpitations. Currently following with cardiology and on metoprolol for tachycardia and hypertension. Has never had problems until this . No problems with otherwise. No vaginal discharge or bleeding, flank tenderness, abdominal pain, or other complaints. History was obtained via conversation with patient and EMS. On arrival, patient hemodynamically stable, alert, oriented x4, appropriate, GCS 15, moving all extremities spontaneously, pupils equal and reactive to light. Full physical exam performed and significant for she is tachycardic and hypertensive systolic 150, diastolic right around 100. Tachycardia 115 at rest. No pallor, cyanosis, erythema, or other abnormalities on exam. Cardiopulmonary exam otherwise within normal lungs, no lower extremity edema. No abdominal pain or tenderness. No overlying skin changes. Differential includes abnormality, molar , partial mole, gestational hypertension, thyroiditis of , peripartum cardiomyopathy, PE, pneumothorax, pneumonia, vasovagal, orthostatic, dehydration, among others. Patient was given fluids, 2 g magnesium for symptomatic management and correction of underlying abnormalities. Patient was placed in observation beginning at 4 PM in order to rule out evolving [place] or other cardiac abnormality with delta troponins and determine need for admission versus home-going. The patient was provided cardiac monitoring, fluids, magnesium while awaiting results. Independent interpretation of results demonstrated: normal white count, hemoglobin 12.6 and normal, normal platelets. VBG with pH 7.41, CO2 a little low at 30, bicarb a little low at 18.8 with normal lactate. Nonactionable, but patient does have mild metabolic acidosis compensated with respiratory effort. Potassium a little low at 3.3, this was repleted with p.o. No anion gap, kidney function normal, liver function normal, lactic acid normal, troponin and BNP both normal. Urinalysis with leukocyte Estrace and bacteria concerning for UTI. Patient was given 1 g ceftriaxone for this. Independent interpretation of EKG shows sinus tachycardia 103 beats a minute with [address] depressions in multiple leads, but no reciprocal elevations. [place] normal. ND 145, QRS 74, QTc 376. Heart score 1. Bedside without Any Focal Cardiac Findings, Normal Overall. Transvaginal ultrasound with gestation 12 weeks and 4 days without complications. Normal-appearing placenta, normal movements. See radiology read for further interpretation. On reevaluation, patient normotensive with blood pressure 128/80, mildly tachycardic 100 to 105 bpm. 100% on room air breathing 10-15 times a minute. Patient states that she recently had child monitor placed and results are here [facility]. Chart review was performed. No monitor report was available with cardiology on 01/05, but [place] was contacted. They were unable to locate the reported child monitor. Given patient presentation, workup, history, this most likely represents POTS versus vasovagal versus orthostatic changes in the setting of early . Keflex sent to pharmacy. Because she has had numerous episodes without obvious answer, patient voicing frustration to nursing staff and states that because this is abnormal, she plans on going to [facility] once discharged. I tried to offer reassurance. Workup today unremarkable, I feel she is appropriate for outpatient management and does not meet inpatient criteria.At this time, I feel patient is appropriate for discharge. Total observation time 3 hours. Patient's images to be power shared to [facility], patient provided with disc of transvaginal ultrasound to obviate necessity of repeat transvaginal ultrasound when going to [facility]. Also provided with packet outlining today's care. Tabulating Clerk disclaimer Much of this encounter note is an electronic project development engineer spoken language to printed text. Electronic project development engineer of the spoken language may permit errors. Although I have reviewed the note, some errors may still exist. Procedures Limited Ultrasound Indication:: Limited cardiac ultrasound Indication: Substernal chest pain, syncope Identified cardiac views: -Cardiac parasternal long axis -Cardiac parasternal short axis Findings: -Cardiac activity present -Gross wall motion normal -Pericardial effusion absent -Right heart strain absent -EPSS less than 5 mm -No evidence of septal hypertrophy Impression: Normal cardiac ultrasound Images were saved to permanent archive The study was technically adequate CPT: 41625 This study was performed by me, and I personally interpreted all images/videos. Based on my clinical judgement, these images were adequate and did not necessitate further imaging. Critical Care Critical Care Time Critical Care Time: No
--- NOTE | 2024-01-22 17:02 | PC.NURSE ---
Pt returned to room from radiology
[2024-01-22 17:04] LABS: Bacteria,Urine Trace /lpf; Squamous Epithelial Cell,Urine Occasional #/hpf (0-5); WBC,Urine Occasional #/hpf (0-3)
[2024-01-22 17:41] LABS: NT Pro Brain Natriuretic Pep. 69.3 pg/mL (0-125)
[2024-01-22] MEDS: CEFTRIAXONE SODIUM 1 GM in 0.9 % SODIUM CHLORIDE 50 ML IV (17:41)
[2024-01-22 17:45] LABS: Troponin I < 0.01 ng/ml (0.00-0.034)
[2024-01-22 18:30] LABS: Thyroid Stimulating Hormone 1.43 uIU/mL (0.465-4.68)
[2024-01-22] MEDS: POTASSIUM CHLORIDE 20MEQ TAB 40 MEQ PO (18:37)
--- NOTE | 2024-01-22 18:40 | PC.NURSE ---
spoke with [facility] about getting information about a halter monitor pt stated she had placed at their facility in early December. Dr. Leonardo advised he would like to see what the monitor revealed. [facility] took our fax number and advised they would send the info through fax when they find it in their system.
[2024-01-22 19:07] LABS: Troponin I < 0.01 ng/ml (0.00-0.034)
== END 2024-01-22 19:12 | disposition home or self-care (01) ==
PROVIDERS: Emergency Provider Emergency Medicine; PCP Family Medicine
DX: O26.892 Other specified pregnancy related conditions, second trimester (principal); R55 Syncope and collapse; R00.0 Tachycardia, unspecified; R00.2 Palpitations; R20.0 Anesthesia of skin; I10 Essential (primary) hypertension; Z3A.12 12 weeks gestation of pregnancy
CPT/HCPCS: 76817; 80053; 81001; 82803; 83605; 83880; 84443; 84484; 84702; 85025; 85378; 87086; 93005; 96361; 96365; 96367; 99285; J0696; J3475; J7120

== ENCOUNTER 2024-01-24 11:26 | Observation (INO) | payer OTHER, SELFPAY ==
[2024-01-24] VITALS (13 sets, daily range): BP systolic 129–157; BP diastolic 73–95; PULSE 80–120; RESP 13–25; TEMP 36.5–36.7; O2SAT 98–100; BMI 22.9
--- NOTE | 2024-01-24 11:24 | ECG_ITS ---
APPROVED REPORT Exam: Resting ECG HR:113 bpm ECG Measurements Heart Rate 113 AXES NH 136 P 69 QRSd 78 QRS 56 QT 302 T 57 QTc 369 Conclusion SINUS TACHYCARDIA Electronically signed by : ALFONZO HANNA, 01/24/2024 15:51:36
--- NOTE | 2024-01-24 11:37 | HMH.EDGENADL ---
Discharge Plan Disposition Patient Disposition: Admitted Clinical Impressions Clinical Impression: Anxiety, Syncope, Panic attack Discharge ED Provider: Jyoti Ortiz General Adult HPI General Chief complaint: Syncope Stated complaint: chest pain Time Seen by Provider: 01/24/24 11:35 Mode of Arrival: Wheelchair Source of Information: Patient Limitations: No Limitations Description of Symptoms (Recalled from ER Triage Doc. by RN): Patient reports laying down watching tv when she began to shake and passed out. States she checked her heart rate when this happened and that it was 166. Patient recently seen at yesterday for the same symptoms. History of Present Illness HPI narrative: This patient is a 23-year-old female who is currently approximately 12 weeks according to OB ultrasound presenting to the emergency department for evaluation with concern for syncope. Patient reports this has been going on for approximately a month. She states her body will give her signs that she is going to pass out, and her chest will get very tight, she will start breathing faster, her hands and arms will get tingly, her mouth will get tingly, her mouth will get dry, her vision will start to go out, and then she will pass out. Patient has had multiple evaluations for this, including hospital admission, which when she was diagnosed with anxiety, gynecology visits, cardiology visits for palpitations and chest pain, for which she has had reassuring Holter monitor and echocardiogram, as well as multiple ED visits both here and at [facility]. She has also had a CT angiogram of her chest, which was reassuring. She was seen here on 01/19 and 01/21, and she was seen at on 01/21 and 01/22. Each time, she has had reassuring workup and exam and has been diagnosed with anxiety and possible dehydration in the setting of nausea, vomiting, and diarrhea with suspected norovirus. She has been discharged home with instructions for close follow-up. She has been prescribed metoprolol and hydroxyzine, but she has not been taking these. Patient states that she does not feel comfortable going home at this time because she was just discharged from and it happened again today while she was lying on the couch watching TV. She states that she started to shake, had a superhigh heart rate, and all of the symptoms mentioned above. She also notes that she has had nausea, vomiting, and loose watery diarrhea on review of systems. She has had poor oral intake as a result of this. Related Data Home Medications Medication Instructions Recorded Confirmed vitamin no.180-ferrous 1 tab PO DAILY 12/05/23 01/24/24 fumarate 27 mg-folic acid 1 mg tablet ( Plus Vitamin-Mineral) hydroxyzine HCl 25 mg tablet 25 mg PO TIDP PRN anxiety 12/07/23 01/24/24 Previous Rx's Medication Instructions Recorded ondansetron HCl 4 mg tablet 4 mg PO Q8H PRN nausea and 12/08/23 vomiting 3 days #9 tabs Allergies Allergy/AdvReac Type Severity Reaction Status Date / Time amoxicillin [From Augmentin] Allergy Verified 01/20/24 16:02 clavulanic acid Allergy Verified 01/20/24 16:02 [From Augmentin] Penicillins Allergy Verified 01/20/24 16:02 [facility] Disclaimer: The information contained in this section may have been updated after the patient was seen, as this information can be updated by other users. 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 Tobacco dependence syndrome Surgical History Hx of dilation and curettage Hx of tonsillectomy Family History Other Family history of myocardial infarction Family history of stroke Social History (Updated 01/24/24 @ 15:02 by Areli Cavanaugh RN) Smoking Status: Never smoker second hand exposure: Yes alcohol intake: current alcohol intake frequency: holidays/special occasions only substance use type: denies use current occupational status: other Travel in the last 8 weeks: None housing: house ROS Obtained: Yes All systems reviewed & no additional complaints except as documented Physical Exam General General appearance: alert, in no apparent distress and anxious Head Head exam: atraumatic and normocephalic Eye Eye exam: Present normal appearance, PERRL and EOMI ENT ENT exam: Present normal exam, normal oropharynx, mucous membranes moist and normal external ear exam Neck Neck exam: Present normal inspection, full ROM and trachea midline; Absent tenderness Chest Chest inspection: Present normal inspection and symmetric chest wall rise; Absent tenderness Respiratory Respiratory exam: Present normal lung sounds bilaterally; Absent respiratory distress, wheezes, stridor or accessory muscle use Cardiovascular Cardiovascular exam: Present normal rhythm and tachycardia Abdominal Exam Abdominal exam: Present soft; Absent distention, tenderness or guarding Extremities Exam Extremities exam: Present normal inspection, full ROM and normal capillary refill; Absent tenderness or edema Back Exam Back exam: Present normal inspection and full ROM; Absent tenderness Neurological Exam Neurological exam: Present alert, oriented X3, CN II-XII intact and normal gait; Absent motor sensory deficit Psychiatric Psychiatric exam: Present anxious Skin Skin exam: Present warm and dry Medical Decision Making Medical Records Medical records reviewed: Yes I reviewed the patient's medical records. Paresh Inquiry Pt receiving controlled substance: No Vital Signs: 01/24/24 11:27 01/24/24 11:30 01/24/24 11:59 Temperature 98.1 F Temperature Source Oral Pulse Rate 116 H 99 H Pulse Rate [Radial] 116 H Respiratory Rate 16 13 15 Blood Pressure 144/93 H 140/89 Blood Pressure [Right Arm] 153/95 H Blood Pressure Mean 110 106 Blood Pressure Mean [Right Arm] 114 Blood Pressure Source [Right Arm] Automatic Cuff Blood Pressure Position [Right Arm] Sitting 02 Sat by Pulse Oximetry 100 100 100 Oxygen Delivery Method Room Air Room Air Room Air 01/24/24 12:16 01/24/24 12:30 01/24/24 13:00 Temperature Temperature Source Pulse Rate 112 H 105 H 108 H Pulse Rate [Radial] Respiratory Rate 14 17 14 Blood Pressure 129/80 136/83 133/80 Blood Pressure [Right Arm] Blood Pressure Mean 96 92 89 Blood Pressure Mean [Right Arm] Blood Pressure Source [Right Arm] Blood Pressure Position [Right Arm] 02 Sat by Pulse Oximetry 99 99 98 Oxygen Delivery Method Room Air Room Air Room Air 01/24/24 13:30 01/24/24 14:00 01/24/24 14:30 Temperature Temperature Source Pulse Rate 105 H 99 H 87 Pulse Rate [Radial] Respiratory Rate 16 16 13 Blood Pressure 134/74 137/84 131/75 Blood Pressure [Right Arm] Blood Pressure Mean 86 92 Blood Pressure Mean [Right Arm] Blood Pressure Source [Right Arm] Blood Pressure Position [Right Arm] 02 Sat by Pulse Oximetry 99 99 100 Oxygen Delivery Method Room Air Room Air Room Air 01/24/24 15:19 Temperature 98.0 F Temperature Source Pulse Rate 105 H Pulse Rate [Radial] Respiratory Rate 20 Blood Pressure 132/80 Blood Pressure [Right Arm] Blood Pressure Mean Blood Pressure Mean [Right Arm] Blood Pressure Source [Right Arm] Blood Pressure Position [Right Arm] 02 Sat by Pulse Oximetry Oxygen Delivery Method Room Air Lab Data Lab results reviewed: Yes I reviewed the patient's lab results. Lab Results 01/24/24 11:27: D-Dimer 0.80 H, VBG pH 7.43 H, VBG pCO2 26.2 L, VBG pO2 30.9, VBG HCO3 16.8 L, VBG Total CO2 17.6 L, VBG O2 Saturation 68.0, VBG Base Excess -7.6 L, VBG Lactic Acid 2.4 H, Magnesium 1.7 01/24/24 11:50: WBC 6.8, RBC 4.38, Hgb 13.2, Hct 39.2, MCV 89.5, MCH 30.2, MCHC 33.7, RDW 14.3, Plt Count 172, MPV 9.3, Neut % (Auto) 78.4, Lymph % (Auto) 18.9, [place] % (Auto) 2.1, Eos % (Auto) 0.1, Baso % (Auto) 0.4, Neut # (Auto) 5.3, Lymph # (Auto) 1.3, [place] # (Auto) 0.2, Eos # (Auto) 0.0, Baso # (Auto) 0.0, Sodium 136, Potassium 3.5, Chloride 104, Carbon Dioxide 19 L, Anion Gap 16.5 H, BUN 5 L D, Creatinine 0.60, Estimated Creat Clear 142, Estimated GFR 122, Est GFR ( Amer) 147, Glucose 127 H, Calcium 9.7, Total Bilirubin 2.2 H, AST 27, ALT 22 D, Alkaline Phosphatase 45, Troponin I < 0.01, Total Protein 8.3 H, Albumin 4.7, Globulin 3.6 H, Albumin/Globulin Ratio 1.3 01/24/24 14:08: Urine Color Yellow, Urine Appearance Clear, Urine pH 7.0, Ur Specific [place] 1.010, Urine Protein Negative, Urine Glucose (UA) Negative, Urine Ketones Trace, Urine Blood Negative, Urine Nitrate Negative, Urine Bilirubin Negative, Urine Urobilinogen 0.2, Ur Leukocyte Esterase 2+ A, Urine WBC 5-10, Ur Squamous Epith Cells 3-5, Urine Bacteria Trace 01/24/24 11:50 01/24/24 11:50 Orders (Tests/Meds): ED MEDICATIONS Generic Name Dose Route Start Last Admin Trade Name Satinder PRN Reason Stop Dose Admin Acetaminophen 650 mg 01/24/24 14:45 Acetaminophen 325mg Tab PO 02/23/24 14:44 Q6HP PRN Fever or Mild Pain (1-3) Buspirone HCl 5 mg 01/24/24 21:00 Buspirone Hcl 5 Mg Tablet PO 02/23/24 20:59 BID [place] Hydroxyzine Pamoate 50 mg 01/24/24 14:45 Hydroxyzine Pamoate 25mg Capsule PO 02/23/24 14:44 TIDP PRN Anxiety Ondansetron HCl 4 mg 01/24/24 14:50 Ondansetron 4mg Odt SL 02/23/24 14:49 Q8HP PRN Nausea Discontinued Medications Generic Name Dose Route Start Last Admin Trade Name Satinder PRN Reason Stop Dose Admin Buspirone HCl 5 mg 01/24/24 12:46 01/24/24 13:07 Buspirone Hcl 5 Mg Tablet PO 01/24/24 12:47 5 mg ONCE ONE Administration Diphenhydramine HCl 25 mg 01/24/24 12:01 01/24/24 12:17 Diphenhydramine 50mg/Ml Vial IV 01/24/24 12:02 Not Given ONCE ONE Hydroxyzine Pamoate 50 mg 01/24/24 12:46 01/24/24 13:08 Hydroxyzine Pamoate 25mg Capsule PO 01/24/24 12:47 25 mg ONCE ONE Administration Lactated Ringer's 1,000 mls @ 999 mls/hr 01/24/24 11:45 01/24/24 11:50 Lactated Ringer's 1000 Ml Bag IV 01/24/24 12:45 999 mls/hr .Q1H1M ONE Administration ORDERS Category Date Time Status Complete Blood Count Auto Diff Stat Lab 01/24/24 11:50 Completed Comprehensive Metabolic Panel Stat Lab 01/24/24 11:50 Completed D-Dimer Stat Lab 01/24/24 11:27 Completed Diarrhea 23 Panel, PCR Stat Lab 01/24/24 11:44 Ordered Magnesium Stat Lab 01/24/24 11:27 Completed Troponin I Q3H Lab 01/24/24 15:40 Received Troponin I Q3H Lab 01/24/24 18:00 Ordered Troponin I Stat Lab 01/24/24 11:50 Completed Urinalysis and Microscopic Stat Lab 01/24/24 14:08 Completed Urine Culture Stat Micro 01/24/24 14:08 Received VBG [Venous Blood Gas] Stat RT 01/24/24 11:27 Completed ECG Data Tracing #1: I reviewed this ECG and interpreted as documented below: Sinus tachycardia with a ventricular rate of [address] changes concerning for ischemia. ECG initial impression date: 01/24/24 ECG initial impression time: 11:29 Tracing #2: I reviewed this ECG and interpreted as documented below: Sinus tachycardia with a ventricular rate of [address] changes concerning for ischemia. Normal axis and intervals. No change from prior EKG. ECG initial impression date: 01/24/24 ECG initial impression time: 11:59 Medical Decision Narrative: In summary, this patient is a 23-year-old female presenting to the Emergency Department for evaluation of syncope. Differential diagnoses considered include but are not limited to vasovagal syncope, anxiety, POTS, ACS, dysrhythmia, dehydration, PE, viral gastroenteritis, bacterial enteritis. Ruling out the most morbid conditions drove assessment. It should be noted patient's history includes anxiety which is not at goal therapy. This complicates all aspects of care by increasing patient's risk for morbidity. I reviewed patient's past medical records and noted multiple previous evaluations both here and at [facility] for this. I reviewed her prior imaging, including multiple echocardiograms, CTA of her chest, and transvaginal ultrasound. I noted reassuring workups with diagnosis of anxiety and panic attacks. I noted her previous Holter monitor, evaluations by cardiology, as well as admission here. On exam, the patient is anxious appearing with mild sinus tachycardia. Vitals are otherwise reassuring with no hypoxia or hypotension. Cardiopulmonary and abdominal exams are benign. Workup included CBC, CMP, magnesium, troponin, EKG, urinalysis, and diarrhea panel. She was given a bolus of IV fluids. I considered thyroid studies, but patient has already had these. EKG obtained is reassuring. Labs do not demonstrate any acutely concerning abnormalities aside from respiratory alkalosis, consistent with anxiety/panic. Patient does have mildly elevated bilirubin in the setting of Gilbert's disease. D-dimer negative per years criteria. I was called to the patient's room twice for repeat episodes. These episodes consisted of the patient hyperventilating. She was becoming very anxious, which resulted in tachycardia and hypertension with systolics in the 140s. Oxygen saturation was 100%. Repeat EKGs were obtained which demonstrated sinus tachycardia but no significant changes. Exam appeared to be consistent with anxiety, so I offered the patient IV Benadryl, which she refused. She states she does not like feeling sleepy from medication. I advised her that given reassuring workup and exam and the fact that the patient has had multiple previous evaluations for similar issues with diagnosis of anxiety, I do feel that this is related to panic and anxiety. Especially in the setting of respiratory alkalosis, which is causing her numbness and tingling of her hands and perioral tingling. She is not satisfied with explanation and states that she needs to be admitted because she does not feel safe going home. At this time, I did call to initiate discussions with CRISIS WORKER to ask for any further recommendations. On multiple subsequent reassessments, the patient continues to complain of anxiety. I had an interactive discussion with Dr. Mota who advised initiating treatment with BuSpar and increasing her hydroxyzine. Patient was agreeable to this, and she states it did improve her symptoms, but she still feels anxious and is afraid to go home because she does not feel safe at home. She states that she is worried that something will happen and no one in her family is medical. I advised her that I feel that is perfectly safe for her to go home given that she has had extensive reassuring workups over the last 2 months, but she is not in agreement with this. I called Dr. Mota again who is going to admit the patient for overnight telemetry to watch her vital signs and make sure she does well on telemetry. Patient was admitted in stable condition. Critical Care Critical Care Time Critical Care Time: No
[2024-01-24] MEDS: LACTATED RINGERS 1000ML 1,000 ML 999 ML IV (11:50)
--- NOTE | 2024-01-24 11:54 | PC.NURSE ---
COMES TO NURSES STATION, REPORTS PT'S IV BURNING. RN TO BEDSIDE, IVF'S STOPPED. IV SITE ASSESSED, NO INFILTRATION, NO REDNESS OR SWELLING AT IV SITE. IV SITE FLUSHED AND HAD BLOOD RETURN. OFFERED TO CHANGE IV SITE, PT DECLINED. IVF'S RESTARTED AT CURRENT SITE. PT THEN REPORTS I'M HAVING CHEST PAIN, SEEING STARS, I DON'T FEEL RIGHT. INSTRUCTED PT TO SLOW BREATHING, REQUESTED DR. HANNA RETURN TO PT'S BEDSIDE. REPEAT EKG PERFORMED. AT BEDSIDE TO REEVALUATE PT, NEW ORDERS RECEIVED. PT REQUESTS TO BE ADMITTED BECAUSE SOMETHING ISN'T RIGHT. MD REMAINS AT BEDSIDE TO REASSURE PT. BP 136/91 HR 126 RESP 24 O2 99% ON ROOM AIR
[2024-01-24 11:58] LABS: Magnesium 1.7 mg/dl (1.6-2.3)
--- NOTE | 2024-01-24 11:58 | ECG_ITS ---
APPROVED REPORT Exam: Resting ECG HR:114 bpm ECG Measurements Heart Rate 114 AXES AK 146 P 67 QRSd 76 QRS 52 QT 305 T 32 QTc 373 Conclusion SINUS TACHYCARDIA NONSPECIFIC ST & T-WAVE ABNORMALITY ABNORMAL RHYTHM ECG Electronically signed by : ALFONZO HANNA, 01/24/2024 15:51:26
[2024-01-24 12:02] LABS: VBG Base Excess -7.6 mmol/L (-2.4-2.3); VBG HCO3 16.8 mmol/L (23-30); VBG PCO2 26.2 mmol/L (35-51); VBG PH 7.43 mmol/L (7.31-7.41); VBG PO2 30.9 mmol/L (28-40); VBG Total CO2 17.6 mmol/L (23-27)
[2024-01-24 12:03] LABS: Lactate Venous 2.4 mmol/L (0.4-2.0)
--- NOTE | 2024-01-24 12:05 | PC.NURSE ---
DR TEAGAN FONSECA
--- NOTE | 2024-01-24 12:07 | PC.NURSE ---
Called lab to check status of cmp/cmp/trop as those orders show cancelled in current order set. states her orders are being tied to pt's last visit and lab reports there was 2 different specimens orders so we cancelled the duplicate set . I let Irving in the lab know of this issue, and he is going to look into it.
--- NOTE | 2024-01-24 12:10 | PC.NURSE ---
FAMILY AT NURSES STATION, REPORTS PT IS HAVING ONE OF THOSE SPELLS. NOTIFIED
[2024-01-24 12:12] LABS: Alanine Aminotransferase 22 U/L (12-78); Albumin Level 4.7 g/dl (3.5-5.0); Albumin/Globulin Ratio 1.3 (1.1-1.8); Alkaline Phosphatase 45 U/L (38-126); Anion Gap 16.5 mEq/L (5-15); Aspartate Amino Transferase 27 U/L (14-36); Bilirubin,Total 2.2 mg/dl (0.2-1.3); Blood Urea Nitrogen 5 mg/dl (7-17); Calcium 9.7 mg/dl (8.4-10.2); Carbon Dioxide 19 mmol/L (22.0-30.0); Chloride 104 mmol/L (98-107); Creatinine Clearance Estimated 142 mL/min (50-200); Estimated Glomerular Filt Rate 122 ml/min (>60); GFR (African American) 147 ML/MIN (>60); Globulin 3.6 g/dL (1.3-3.2); Glucose 127 mg/dl (74-100); Potassium 3.5 mmoL/L (3.5-5.1); Sodium 136 mmol/L (136-145); Total Protein,Serum 8.3 g/dl (6.3-8.2)
--- NOTE | 2024-01-24 12:12 | PC.NURSE ---
Irving from the lab called and to state, they were able to correct the orders to today's visit and not the previous visit. He did ask that we reorder the [id number] as the lab cancelled this and it was not previously ordered so they could not open it back up . New order placed. Pt's father came to nurse's stations stating She [the patient] is starting to have a spell again . Dr Ortiz notified of this and proceeded to bedside with Pierre Shabazz RN
[2024-01-24 12:13] LABS: Troponin I < 0.01 ng/ml (0.00-0.034)
--- NOTE | 2024-01-24 12:15 | PC.NURSE ---
DR HANNA AT BEDSIDE TO REASSESS PT'S SPELL PT ALERT AND ORIENTED TALKING WITH FAMILY. B/P 129/80 HR 114 SAT 99% ON ROOM AIR RESP 24. DR HANNA DISCUSSED CURRENT LAB RESULTS AND POTENTIAL DX AND POC WITH PT AND FAMILY. INFORMED PT AWAITING CALL FROM OB ART CRITIC, PT VOICES AGAIN OF ADMISSION BECAUSE SHE DOESN'T FEEL COMFORTABLE GOING HOME BECAUSE SOMETHING ISN'T RIGHT V/U WILL DISCUSS WITH OB AND HOSPITALIST. PT OFFERED BENADRYL FOR CURRENT SYMPTOMS, PT REFUSES. REMAINS AT BEDSIDE TO EDUCATE PT AND FAMILY. NO FURTHER QUESTIONS AT THIS TIME. CALL LIGHT WITHIN REACH. PT OFFERED ADDITIONAL BLANKET AND DIM LIGHT, DECLINES
[2024-01-24 12:16] LABS: Basophils % 0.4 % (0.1-2.0); Eosinophils % 0.1 % (0.1-12.0); Hematocrit 39.2 % (37.0-47.0); Hemoglobin 13.2 g/dL (12.2-16.2); Lymphocytes # 1.3 K/mm3 (0.7-4.5); Lymphocytes % 18.9 % (10-50); Mean Corpuscular HGB Conc 33.7 g/dL (31.8-35.4); Mean Corpuscular Hemoglobin 30.2 pg (27.0-31.2); Mean Corpuscular Volume 89.5 fl (81-99); Mean Platelet Volume 9.3 fl (7.4-10.4); Monocytes # 0.2 K/mm3 (0.1-1.0); Monocytes % 2.1 % (1.7-9.3); Neutrophils # 5.3 K/mm3 (1.8-7.8); Neutrophils % 78.4 % (37.0-80.0); Platelet Count 172 K/mm3 (142-424); Red Blood Count 4.38 M/mm3 (4.20-5.40); Red Cell Distribution Width 14.3 % (11.5-17.5); White Blood Count 6.8 K/mm3 (4.8-10.8)
--- NOTE | 2024-01-24 12:26 | PC.NURSE ---
DR CANDELARIA PAGED AGAIN
--- NOTE | 2024-01-24 12:43 | PC.NURSE ---
DR HANNA SPEAKING WITH DR CANDELARIA
--- NOTE | 2024-01-24 13:01 | PC.NURSE ---
Dr. Ortiz at bedside to discuss results, medications, and review OB consult
--- NOTE | 2024-01-24 13:05 | PC.NURSE ---
DR HANNA AT BEDSIDE
[2024-01-24] MEDS: BUSPIRONE HCL 5 MG TABLET PO ×2 (13:07→21:19)
[2024-01-24] MEDS: hydrOXYzine pamoate 25MG CAPSULE 50 MG PO (13:08)
[2024-01-24 14:18] LABS: Microscopic, Urine URINE MICROSCOPIC (MICROSCOPIC)
[2024-01-24 14:29] LABS: Appearance,Urine CLEAR (Clear); Bilirubin,Urine Negative (Negative); Blood, Urine Negative (Negative); Color,Urine YELLOW (Yellow); Glucose,Urine (UA) Negative (Negative); Ketones,Urine TRACE (Negative); Leukocyte Esterase,Urine 2+ (Negative); Nitrate,Urine Negative (Negative); Protein,Urine Negative (Negative); Urobilinogen,Urine 0.2 EU/dl (0.2)
--- NOTE | 2024-01-24 14:37 | PC.NURSE ---
dr bray at bedside
[2024-01-24 14:39] LABS: Bacteria,Urine Trace /lpf
--- NOTE | 2024-01-24 14:42 | PC.NURSE ---
dr kassidy jeff
--- NOTE | 2024-01-24 14:46 | PC.NURSE ---
Dr. Ortiz s/w Dr. Kaminski. He refuses to admit the pt at this time. Paging Dr. Mota again.
--- NOTE | 2024-01-24 14:47 | PC.NURSE ---
Dr. Ortiz s/w Dr. Mota regarding admission. Agrees to adx as primary to med/surg tele bed
--- NOTE | 2024-01-24 14:53 | PC.NURSE ---
malthouse laborer notified of admission
--- NOTE | 2024-01-24 15:02 | PC.NURSE ---
REPORT CALLED TO Lucila UGALDE RN
[2024-01-24 16:02] LABS: Reflex Lactic Add Lactic Reflex
--- NOTE | 2024-01-24 16:31 | P.CONCA_ITS ---
History of Present Illness History of Present Illness Consult date: 01/25/24 [facility] Disclaimer: The information contained in this section may have been updated after the patient was seen, as this information can be updated by other users. 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 Tobacco dependence syndrome Surgical History Hx of dilation and curettage Hx of tonsillectomy Family History Other Family history of myocardial infarction Family history of stroke Social History (Updated 01/24/24 @ 15:02 by Areli Cavanaugh RN) Smoking Status: Never smoker second hand exposure: Yes alcohol intake: current alcohol intake frequency: holidays/special occasions only substance use type: denies use current occupational status: other Travel in the last 8 weeks: None housing: house Exam Data for Last 24 hours Vital signs and Labs for Last 24 Hours: Temp Pulse Resp BP Pulse Ox O2 Del Method 97.7 F 84 20 130/73 99 Room Air 01/24/24 16:00 01/24/24 16:00 01/24/24 16:00 01/24/24 16:00 01/24/24 16:00 01/24/24 16:00 Laboratory Results - last 24 hr 01/24/24 11:27: D-Dimer 0.80 H, VBG pH 7.43 H, VBG pCO2 26.2 L, VBG pO2 30.9, VBG HCO3 16.8 L, VBG Total CO2 17.6 L, VBG O2 Saturation 68.0, VBG Base Excess - 7.6 L, VBG Lactic Acid 2.4 H, Magnesium 1.7 01/24/24 11:50: WBC 6.8, RBC 4.38, Hgb 13.2, Hct 39.2, MCV 89.5, MCH 30.2, MCHC 33.7, RDW 14.3, Plt Count 172, MPV 9.3, Neut % (Auto) 78.4, Lymph % (Auto) 18.9, [place] % (Auto) 2.1, Eos % (Auto) 0.1, Baso % (Auto) 0.4, Neut # (Auto) 5.3, Lymph # (Auto) 1.3, [place] # (Auto) 0.2, Eos # (Auto) 0.0, Baso # (Auto) 0.0, Sodium 136, Potassium 3.5, Chloride 104, Carbon Dioxide 19 L, Anion Gap 16.5 H, BUN 5 L D, Creatinine 0.60, Estimated Creat Clear 142, Estimated GFR 122, Est GFR ( Amer) 147, Glucose 127 H, Calcium 9.7, Total Bilirubin 2.2 H, AST 27, ALT 22 D, Alkaline Phosphatase 45, Troponin I < 0.01, Total Protein 8.3 H, Albumin 4.7, Globulin 3.6 H, Albumin/Globulin Ratio 1.3 01/24/24 14:08: Urine Color Yellow, Urine Appearance Clear, Urine pH 7.0, Ur Specific [place] 1.010, Urine Protein Negative, Urine Glucose (UA) Negative, Urine Ketones Trace, Urine Blood Negative, Urine Nitrate Negative, Urine Bilirubin Negative, Urine Urobilinogen 0.2, Ur Leukocyte Esterase 2+ A, Urine WBC 5-10, Ur Squamous Epith Cells 3-5, Urine Bacteria Trace I & O for Last 24 hours: Intake & Output 01/21/24 01/22/24 01/23/24 01/24/24 23:59 23:59 23:59 23:59 Output Total 0 / 0 Balance 0 / 0 Weight 138 lb Meds Home Medications and Allergies Home Medications Medication Instructions Recorded Confirmed Type vitamin no.180-ferrous 1 tab PO DAILY 12/05/23 01/24/24 History fumarate 27 mg-folic acid 1 mg tablet ( Plus Vitamin-Mineral) hydroxyzine HCl 25 mg tablet 25 mg PO TIDP PRN anxiety 12/07/23 01/24/24 History ondansetron HCl 4 mg tablet 4 mg PO Q8H PRN nausea and 12/08/23 01/24/24 Rx vomiting 3 days #9 tabs New Prescriptions to Start Prescriptions: Allergies Allergy/AdvReac Type Severity Reaction Status Date / Time amoxicillin [From Augmentin] Allergy Verified 01/20/24 16:02 clavulanic acid Allergy Verified 01/20/24 16:02 [From Augmentin] Penicillins Allergy Verified 01/20/24 16:02
[2024-01-24 16:43] LABS: Troponin I < 0.01 ng/ml (0.00-0.034)
--- NOTE | 2024-01-24 17:00 | PC.NURSE ---
A&OX4. TOLERATING RA WELL. SINCE ARRIVAL TO FLOOR, PT STATES SHE IS FEELING VERY TIRED, AND JUST OFF IN GENERAL. STATES SHE CONTINUES TO FEEL HEART PALPITATIONS. SERGEANT MISSILE CREWMAN NOTIFIED THIS NURSE OF HR INCREASING TO 120 FOR A COUPLE SECONDS, AND THEN GOING BACK TO 70S. PT HAS HAD NO SIGNS OF ANXIETY OR PANIC ATTACK THUS FAR. DISCUSSED THIS WITH PT, AND SHE STATES I HAVE HAD ANXIETY AND PANIC ATTACKS BEFORE, AND I KNOW THIS IS NOT IT. PT STATES THAT SHE GETS ANXIOUS DURING AND AFTER A SPELL BECAUSE OF HOW BAD IT MAKES HER FEEL, BUT ANXIETY DOESN'T CAUSE HER TO HAVE A SPELL . PT HAS REMAINED VERY CALM AND COLLECTED THUS FAR. NO OTHER NEEDS OR C/O NOTED. VSS.
[2024-01-24 17:11] LABS: Lactic Acid Follow Up (RFLX 1) 0.7 mmol/L (0.7-2.1)
--- NOTE | 2024-01-24 17:49 | ECG_ITS ---
APPROVED REPORT Exam: Resting ECG HR:104 bpm ECG Measurements Heart Rate 104 AXES MI 141 P 55 QRSd 78 QRS 50 QT 326 T -11 QTc 386 Conclusion SINUS TACHYCARDIA NONSPECIFIC ST & T-WAVE ABNORMALITY ABNORMAL ECG UNCONFIRMED REPORT Electronically signed by : ALEXANDER BRISENO, 01/26/2024 02:16:11
--- NOTE | 2024-01-24 18:15 | PC.NURSE ---
PT CALLED OUT SAYING SHE IS HAVING A SPELL , AND HEART RATE IS 160s. WALK IN ROOM TO FIND PT BREATHING HEAVILY, CLAMMY, COLD EXTREMITIES, WITH BOUNDING PULSE. PT STATED SHE FELT LIKE SHE WOULD PASS OUT, BUT NEVER DID. PROVIDED COLD WASH CLOTH AND OBTAINED A 12 LEAD EKG. EKG PRODUCED THREE DIFFERENT READINGS . STRIP ALSO PRINTED DURING THE EVENT READING SINUS TACHYCARDIA. CONSULTED HOSPITALIST LUIS NOTIFIED, STATING THAT HE WILL COME TO FLOOR TO LOOK AT STRIPS. PT HAS RECOVERED AND STATES SHE IS JUST VERY TIRED NOW. VSS.
--- NOTE | 2024-01-24 18:52 | PC.NURSE ---
PT RANG OUT THAT SHE WAS HAVING ANOTHER SPELL, THIS IS ABOUT 20 MINUTES AFTER LAST SPELL. PT HEART RATE AT 180 DURING SPELL. EKG OBTAINED, READING SINUS TACHYCARDIA. PT BP 164/103. PAGED DR SCHULER. UPDATED HIM ON PATIENT AND VITALS AND EKG/TELE READINGS. MD STATED TO ATTEMPT TO CATCH WHAT HER HEART IS DOING BEFORE SPELL AND AFTER SPELL. ASKS TO BE UPDATED WHEN THIS OCCURS. PATIENT AWARE OF POC AND UNDERSTANDS TO LET US KNOW WHEN SHE FEELS A SPELL COMING ON. THIS NURSE REMAINING AT BEDSIDE AND PT REMAINS HOOKED UP TO EKG/TELE/VITALS AT THIS TIME.
--- NOTE | 2024-01-24 19:05 | PC.NURSE ---
THIS NURSE REMAINED AT BEDSIDE. SAW PT HR INCREASING. PT STATES SHE IS BEGINNING A SPELL. TELE STRIP PRINTED. SECOND STRIP ALSO PRINTED PATIENT CAME DOWN FROM EPISODE. WILL CONTACT HARINI AND RELAY STRIP FINDINGS TO HIM.
[2024-01-24 19:26] LABS: Troponin I < 0.01 ng/ml (0.00-0.034)
--- NOTE | 2024-01-24 21:15 | EXP.MED.CON ---
Documented by User: Gabe Taylor, TRISTAN 01/25/24 01:57 History of Present Illness *Admission Date: 01/24/24 *Reason for visit:: tachycardia *History of present illness: This is a 23 yo at approximately 12 weeks, patient reported at least 3 spontaneous miscarriage, with PMHx HTN, Gilbert's syndrome and recent cholecystectomy who presented to [facility] with complaint of syncope. Patient referred that she feels prodromes. Started with tachycardia, palpitation, hand numbness and discoloration and syncope. Patient had several admission during this due to hypertension, chest pain tachycardia and palpitation.. She is being on metoprolol and anxiety medication per her primary [facility] team. episodes are described on many differents situationa and does not seen related with activity, food or mental states, however many different past episodes occurred after meals. Patient recent had a holter monitor by cardiology team. pending results. medicine was consulted for co-management This is per [facility] [facility] team: Ms Francy Delarosa is a 23 yo at approximately 12 weeks who presented to [facility] with complaint of syncope. She states her body will give her signs that she is going to pass out; her chest will get tight, she will start breathing faster, her hands and arms will get tingly, her mouth will get tingly, her mouth will get dry, her vision will start to go out, and then she will pass out. She has history of anxiety prior to but states this does not feel like any panic attack she has ever had. She admits one episode woke her from sleep. These episodes started about 8 weeks ago and have become more frequent. She has been receiving care in [place] but is moving back to [facility]. She has had multiple ED visits and hospitalizations between [facility] and . She wore a holter monitor for 48 hours and it was within normal limits. She states [facility] started her on Metoprolol 25 mg PO daily but it made her feel really bad and she decreased it to 12.5 mg daily. She states the episodes stopped for about 3 weeks while taking Metoprolol. She is also taking Vistaril 25 mg PO TID PRN. However, episodes have returned and increased in frequency. She feels like something is very wrong. She denies cramping and vaginal bleeding. History of x 2. She is transferring care from [place] to Dr. Clark. [facility] Disclaimer: The information contained in this section may have been updated after the patient was seen, as this information can be updated by other users. Medical History (Updated 01/25/24 @ 01:46 by Gabe Taylor APRN) Anxiety disorder affecting , antepartum Gilbert's disease Herpes simplex of female genitalia Tobacco dependence syndrome Surgical History Hx of dilation and curettage Hx of tonsillectomy Family History Other Family history of myocardial infarction Family history of stroke Social History (Updated 01/24/24 @ 15:02 by Areli Cavanaugh RN) Smoking Status: Never smoker second hand exposure: Yes alcohol intake: current alcohol intake frequency: holidays/special occasions only substance use type: denies use current occupational status: other Travel in the last 8 weeks: None housing: house Review of Systems Review of Systems Review of systems:: pertinent systems reviewed and negative unless documented below Exam Data for Last 24 hours Vital signs and Labs for Last 24 Hours: Temp Pulse Resp BP Pulse Ox O2 Del Method 98.1 F 112 H 25 H 139/88 100 Room Air 01/24/24 20:00 01/24/24 20:00 01/24/24 20:00 01/24/24 20:00 01/24/24 20:00 01/24/24 20:00 Laboratory Results - last 24 hr 01/24/24 11:27: D-Dimer 0.80 H, VBG pH 7.43 H, VBG pCO2 26.2 L, VBG pO2 30.9, VBG HCO3 16.8 L, VBG Total CO2 17.6 L, VBG O2 Saturation 68.0, VBG Base Excess -7.6 L, VBG Lactic Acid 2.4 H, Magnesium 1.7 01/24/24 11:50: WBC 6.8, RBC 4.38, Hgb 13.2, Hct 39.2, MCV 89.5, MCH 30.2, MCHC 33.7, RDW 14.3, Plt Count 172, MPV 9.3, Neut % (Auto) 78.4, Lymph % (Auto) 18.9, [place] % (Auto) 2.1, Eos % (Auto) 0.1, Baso % (Auto) 0.4, Neut # (Auto) 5.3, Lymph # (Auto) 1.3, [place] # (Auto) 0.2, Eos # (Auto) 0.0, Baso # (Auto) 0.0, Sodium 136, Potassium 3.5, Chloride 104, Carbon Dioxide 19 L, Anion Gap 16.5 H, BUN 5 L D, Creatinine 0.60, Estimated Creat Clear 142, Estimated GFR 122, Est GFR ( Amer) 147, Glucose 127 H, Calcium 9.7, Total Bilirubin 2.2 H, AST 27, ALT 22 D, Alkaline Phosphatase 45, Troponin I < 0.01, Total Protein 8.3 H, Albumin 4.7, Globulin 3.6 H, Albumin/Globulin Ratio 1.3 01/24/24 14:08: Urine Color Yellow, Urine Appearance Clear, Urine pH 7.0, Ur Specific [place] 1.010, Urine Protein Negative, Urine Glucose (UA) Negative, Urine Ketones Trace, Urine Blood Negative, Urine Nitrate Negative, Urine Bilirubin Negative, Urine Urobilinogen 0.2, Ur Leukocyte Esterase 2+ A, Urine WBC 5-10, Ur Squamous Epith Cells 3-5, Urine Bacteria Trace 01/24/24 15:40: Troponin I < 0.01 01/24/24 16:30: Lactate 0.7 01/24/24 18:40: Troponin I < 0.01 I & O for Last 24 hours: Intake & Output 01/21/24 01/22/24 01/23/24 01/24/24 23:59 23:59 23:59 23:59 Intake Total 275 / 275 Output Total 0 / 0 Balance 275 / 275 Weight 62.596 kg Constitutional Constitutional: no acute distress *Routine HEENT Exam Head: Present normocephalic Eye: Present EOMI and PERRL ENT: Present mucous membranes moist *Routine Neck Exam Neck: Present supple; Absent lymphadenopathy *Routine Respiratory Exam Respiratory: Present CTA bilaterally *Routine Cardiovascular Exam Cardiovascular: Present RRR *Routine Abdominal Exam Abdominal: Present soft and normoactive bowel sounds; Absent tenderness *Routine Extremities Exam Extremities: Absent cyanosis, clubbing or edema *Routine Skin Exam Skin: Present warm; Absent rash *Routine Neurological Exam Neurological: Present alert and oriented X3 Meds Home Medications and Allergies Home Medications Medication Instructions Recorded Confirmed Type vitamin no.180-ferrous 1 tab PO DAILY 12/05/23 01/24/24 History fumarate 27 mg-folic acid 1 mg tablet ( Plus Vitamin-Mineral) hydroxyzine HCl 25 mg tablet 25 mg PO TIDP PRN anxiety 12/07/23 01/24/24 History ondansetron HCl 4 mg tablet 4 mg PO Q8H PRN nausea and 12/08/23 01/24/24 Rx vomiting 3 days #9 tabs New Prescriptions to Start Prescriptions: Allergies Allergy/AdvReac Type Severity Reaction Status Date / Time amoxicillin [From Augmentin] Allergy Verified 01/20/24 16:02 clavulanic acid Allergy Verified 01/20/24 16:02 [From Augmentin] Penicillins Allergy Verified 01/20/24 16:02 Results Labs 01/24/24 11:50 01/24/24 11:50 Labs: Abnormal lab results 01/24/24 01/24/24 01/24/24 Range/Units 11:27 11:50 14:08 D-Dimer 0.80 H (0.0-0.5) ug/mL VBG pH 7.43 H (7.31-7.41) mmol/L VBG pCO2 26.2 L (35-51) mmol/L VBG HCO3 16.8 L (23-30) mmol/L VBG Total CO2 17.6 L (23-27) mmol/L VBG Base Excess -7.6 L (-2.4-2.3) mmol/L VBG Lactic Acid 2.4 H (0.4-2.0) mmol/L Carbon Dioxide 19 L (22.0-30.0) mmol/L Anion Gap 16.5 H (5-15) mEq/L BUN 5 L D (7-17) mg/dl Glucose 127 H (74-100) mg/dl Total Bilirubin 2.2 H (0.2-1.3) mg/dl Total Protein 8.3 H (6.3-8.2) g/dl Globulin 3.6 H (1.3-3.2) g/dL Ur Leukocyte Esterase 2+ A (Negative) H & H 06/30/24 Range/Units 11:50 Hgb 13.2 (12.2-16.2) g/dL Hct 39.2 (37.0-47.0) % All other labs normal. Assessment and Plan *Assessment and plan (1) Sinus tachycardia: Status: Acute Category: Medical Code(s): R00.0 - Tachycardia, unspecified (2) Palpitations: Status: Acute Category: Medical Code(s): R00.2 - Palpitations (3) Near syncope: Status: Acute Category: Medical Code(s): R55 - Syncope and collapse (4) Hypertension affecting : Status: Acute Qualifiers: Trimester: first trimester Qualified Code(s): O16.1 - Unspecified maternal hypertension, first trimester Category: Medical Code(s): O16.9 - Unspecified maternal hypertension, unspecified trimester (5) Anxiety disorder affecting , antepartum: Status: Acute Category: Medical Code(s): O99.340 - Other mental disorders complicating , unspecified trimester; F41.9 - Anxiety disorder, unspecified Plan 23 yo at approximately 12 weeks, with PMHx HTN, Gilbert's syndrome and recent cholecystectomy who presented to [facility] ED with complaint of syncope. patient referred that she feels prodromes. started by tachycardia, palpitation, hand numbness and syncope. patient had different admission during this due to hypertention, chest pain tachycardia and palpitation.. She is being on metoprolol and anxiety medication per her primary [facility] [employer] team. episodes are described on many differents situationa and does not seen related with activity, food or mental states, however many different past episodes occurred after meals. Patient recent had a holter monitor by cardiology team. pending results. medicine was consulted for co-management. Plan as follow: -Sinus tachycardia, with palpitation and syncope or near syncope episode: Conditions to rule out POTS, hypertensive, anxiety and panic attack Continuous cardiac Telemetry Labs reviewed. Cardiology involvement. Holter monitor report requested from [facility]. EKGs reviewed. Sinus tach. Continue to monitor trends Vaginal ultrasound normal. Single live uterine. Incidental right ovarian cyst Blood pressure and heart rate response with a beta-jazz Reassured patient Education and supportive care Monitor daily lab Per RN AMBULATORY team: started Buspirone 5 mg PO BID in the ED. Continue buspirone Increase vistaril to 25-50 mg TID PRN Continue Metoprolol 25mg daily Full code. Thank you for involving in the care of this patient. Documented by User: Sahil Gutierrez MD 01/25/24 15:55 PFSH PFSH Medical History (Updated 01/25/24 @ 01:46 by Gabe Taylor APRN) Anxiety disorder affecting , antepartum Gilbert's disease Herpes simplex of female genitalia Tobacco dependence syndrome Surgical History Hx of dilation and curettage Hx of tonsillectomy Family History Other Family history of myocardial infarction Family history of stroke Social History (Updated 01/24/24 @ 15:02 by Areli Cavanaugh RN) Smoking Status: Never smoker second hand exposure: Yes alcohol intake: current alcohol intake frequency: holidays/special occasions only substance use type: denies use current occupational status: other Travel in the last 8 weeks: None housing: house Meds Home Medications and Allergies Home Medications Medication Instructions Recorded Confirmed Type vitamin no.180-ferrous 1 tab PO DAILY 12/05/23 01/24/24 History fumarate 27 mg-folic acid 1 mg tablet ( Plus Vitamin-Mineral) hydroxyzine HCl 25 mg tablet 25 mg PO TIDP PRN anxiety 12/07/23 01/24/24 History ondansetron HCl 4 mg tablet 4 mg PO Q8H PRN nausea and 12/08/23 01/24/24 Rx vomiting 3 days #9 tabs New Prescriptions to Start Prescriptions: Allergies Allergy/AdvReac Type Severity Reaction Status Date / Time amoxicillin [From Augmentin] Allergy Verified 01/20/24 16:02 clavulanic acid Allergy Verified 01/20/24 16:02 [From Augmentin] Penicillins Allergy Verified 01/20/24 16:02 Results Labs 01/24/24 11:50 01/24/24 11:50 Assessment and Plan *Assessment and plan (1) Sinus tachycardia: Status: Acute Category: Medical Code(s): R00.0 - Tachycardia, unspecified (2) Palpitations: Status: Acute Category: Medical Code(s): R00.2 - Palpitations (3) Near syncope: Status: Acute Category: Medical Code(s): R55 - Syncope and collapse (4) Hypertension affecting : Status: Acute Qualifiers: Trimester: first trimester Qualified Code(s): O16.1 - Unspecified maternal hypertension, first trimester Category: Medical Code(s): O16.9 - Unspecified maternal hypertension, unspecified trimester (5) Anxiety disorder affecting , antepartum: Status: Acute Category: Medical Code(s): O99.340 - Other mental disorders complicating , unspecified trimester; F41.9 - Anxiety disorder, unspecified Plan 23 yo at approximately 12 weeks, with PMHx HTN, Gilbert's syndrome and recent cholecystectomy who presented to [facility] with complaint of syncope. patient referred that she feels prodromes. started by tachycardia, palpitation, hand numbness and syncope. patient had different admission during this due to hypertention, chest pain tachycardia and palpitation.. She is being on metoprolol and anxiety medication per her primary [employer] team. episodes are described on many differents situationa and does not seen related with activity, food or mental states, however many different past episodes occurred after meals. Patient recent had a holter monitor by cardiology team. pending results. medicine was consulted for co-management. Plan as follow: -Sinus tachycardia, with palpitation and syncope or near syncope episode: Conditions to rule out POTS, hypertensive, anxiety and panic attack Continuous cardiac Telemetry Labs reviewed. Cardiology involvement. Holter monitor report requested from [facility]. EKGs reviewed. Sinus tach. Continue to monitor trends Vaginal ultrasound normal. Single live uterine. Incidental right ovarian cyst Blood pressure and heart rate response with a beta-jazz Reassured patient Education and supportive care Monitor daily lab Per RN AMBULATORY team: started Buspirone 5 mg PO BID in the ED. Continue buspirone Increase vistaril to 25-50 mg TID PRN Continue Metoprolol 25mg daily Full code. Thank you for involving in the care of this patient. Rounded on patient after nurse practitioner. Personally examined and interviewed patient. Agree with exam findings and care plan as documented.
[2024-01-24] MEDS: METOPROLOL TARTRATE 25MG TABLET 25 MG PO (21:19)
--- NOTE | 2024-01-24 21:20 | PC.NURSE ---
Spoke with Dr. Mota on current condition of pt and updates thus far this shift. Pt HR 89 at this time while this nurse is in the room
--- NOTE | 2024-01-24 22:43 | P.HP_ITS ---
History of Present Illness *Admission Date: 01/24/24 *Reason for visit:: syncope, chest tightness, palpitations *History of present illness: Ms Francy Delarosa is a 23 yo at approximately 12 weeks who presented to [facility] ED with complaint of syncope. She states her body will give her signs that she is going to pass out; her chest will get tight, she will start breathing faster, her hands and arms will get tingly, her mouth will get tingly, her mouth will get dry, her vision will start to go out, and then she will pass out. She has history of anxiety prior to but states this does not feel like any panic attack she has ever had. She admits one episode woke her from sleep. These episodes started about 8 weeks ago and have become more frequent. She has been receiving care in [place] but is moving back to [facility]. She has had multiple ED visits and hospitalizations between [facility] and . She wore a holter monitor for 48 hours and it was within normal limits. She states [facility] started her on Metoprolol 25 mg PO daily but it made her feel really bad and she decreased it to 12.5 mg daily. She states the episodes stopped for about 3 weeks while taking Metoprolol. She is also taking Vistaril 25 mg PO TID PRN. However, episodes have returned and increased in frequency. She feels like something is very wrong. She denies cramping and vaginal bleeding. History of x 2. She is transferring care from [place] to Dr. Clark. [facility] Disclaimer: The information contained in this section may have been updated after the patient was seen, as this information can be updated by other users. Medical History (Updated 01/24/24 @ 23:07 by Shalonda Mota DO) Anxiety disorder affecting , antepartum Gilbert's disease Herpes simplex of female genitalia Tobacco dependence syndrome Surgical History Hx of dilation and curettage Hx of tonsillectomy Family History Other Family history of myocardial infarction Family history of stroke Social History (Updated 01/24/24 @ 15:02 by Areli Cavanaugh RN) Smoking Status: Never smoker second hand exposure: Yes alcohol intake: current alcohol intake frequency: holidays/special occasions only substance use type: denies use current occupational status: other Travel in the last 8 weeks: None housing: house Review of Systems Review of Systems Review of systems (narrative): systems reviewed, positives documented in HPI Meds Home Medications and Allergies Home Medications Medication Instructions Recorded Confirmed Type vitamin no.180-ferrous 1 tab PO DAILY 12/05/23 01/24/24 History fumarate 27 mg-folic acid 1 mg tablet ( Plus Vitamin-Mineral) hydroxyzine HCl 25 mg tablet 25 mg PO TIDP PRN anxiety 12/07/23 01/24/24 History ondansetron HCl 4 mg tablet 4 mg PO Q8H PRN nausea and 12/08/23 01/24/24 Rx vomiting 3 days #9 tabs New Prescriptions to Start Prescriptions: Allergies Allergy/AdvReac Type Severity Reaction Status Date / Time amoxicillin [From Augmentin] Allergy Verified 01/20/24 16:02 clavulanic acid Allergy Verified 01/20/24 16:02 [From Augmentin] Penicillins Allergy Verified 01/20/24 16:02 Exam Data for Last 24 hours Vital signs and Labs for Last 24 Hours: Temp Pulse Resp BP Pulse Ox O2 Del Method 98.1 F 120 H 25 H 139/88 100 Room Air 01/24/24 20:00 01/24/24 20:00 01/24/24 20:00 01/24/24 20:00 01/24/24 20:00 01/24/24 21:00 Laboratory Results - last 24 hr 01/24/24 11:27: D-Dimer 0.80 H, VBG pH 7.43 H, VBG pCO2 26.2 L, VBG pO2 30.9, V BG HCO3 16.8 L, VBG Total CO2 17.6 L, VBG O2 Saturation 68.0, VBG Base Excess - 7.6 L, VBG Lactic Acid 2.4 H, Magnesium 1.7 01/24/24 11:50: WBC 6.8, RBC 4.38, Hgb 13.2, Hct 39.2, MCV 89.5, MCH 30.2, MCHC 33.7, RDW 14.3, Plt Count 172, MPV 9.3, Neut % (Auto) 78.4, Lymph % (Auto) 18.9, [place] % (Auto) 2.1, Eos % (Auto) 0.1, Baso % (Auto) 0.4, Neut # (Auto) 5.3, Lymph # (Auto) 1.3, [place] # (Auto) 0.2, Eos # (Auto) 0.0, Baso # (Auto) 0.0, Sodium 136, Potassium 3.5, Chloride 104, Carbon Dioxide 19 L, Anion Gap 16.5 H, BUN 5 L D, Creatinine 0.60, Estimated Creat Clear 142, Estimated GFR 122, Est GFR ( Amer) 147, Glucose 127 H, Calcium 9.7, Total Bilirubin 2.2 H, AST 27, ALT 22 D, Alkaline Phosphatase 45, Troponin I < 0.01, Total Protein 8.3 H, Albumin 4.7, Globulin 3.6 H, Albumin/Globulin Ratio 1.3 01/24/24 14:08: Urine Color Yellow, Urine Appearance Clear, Urine pH 7.0, Ur Specific [place] 1.010, Urine Protein Negative, Urine Glucose (UA) Negative, Urine Ketones Trace, Urine Blood Negative, Urine Nitrate Negative, Urine Bilirubin Negative, Urine Urobilinogen 0.2, Ur Leukocyte Esterase 2+ A, Urine WBC 5-10, Ur Squamous Epith Cells 3-5, Urine Bacteria Trace 01/24/24 15:40: Troponin I < 0.01 01/24/24 16:30: Lactate 0.7 01/24/24 18:40: Troponin I < 0.01 I & O for Last 24 hours: Intake & Output 01/21/24 01/22/24 01/23/24 01/24/24 23:59 23:59 23:59 23:59 Intake Total 275 / 275 Output Total 0 / 0 Balance 275 / 275 Weight 138 lb Constitutional Constitutional: no acute distress and cooperative *Routine HEENT Exam Head: Present normocephalic and atraumatic Eye: Absent conjunctivae pink ENT: Present mucous membranes moist *Routine Neck Exam Neck: Present full ROM *Routine Respiratory Exam Respiratory: Present CTA bilaterally and normal respiratory effort *Routine Cardiovascular Exam Cardiovascular: Present RRR *Routine Abdominal Exam Abdominal: Present soft; Absent tenderness or distended *Routine Rectal Exam Rectal:: deferred *Routine Genitalia Exam Genitalia:: deferred *Routine Extremities Exam Extremities: Present full ROM; Absent edema or calf tenderness *Routine Neurological Exam Neurological: Present alert, moving all extremities and normal speech Routine Psychiatric Exam Psychiatric: Present normal affect and cooperative Assessment and Plan *Assessment and plan (1) Anxiety disorder affecting , antepartum: Status: Acute Category: Medical Code(s): O99.340 - Other mental disorders complicating , unspecified trimester; F41.9 - Anxiety disorder, unspecified (2) Syncope: Status: Acute Category: Medical Code(s): R55 - Syncope and collapse (3) Palpitations: Status: Acute Category: Medical Code(s): R00.2 - Palpitations (4) Sinus tachycardia: Status: Acute Category: Medical Code(s): R00.0 - Tachycardia, unspecified (5) Chest pain during : Status: Acute Category: Medical Code(s): O99.891 - Other specified diseases and conditions complicating ; R07.9 - Chest pain, unspecified Plan Admit to [facility] for observation Telemetry Regular diet Started Buspirone 5 mg PO BID in the ED. Continue buspirone Increase vistaril to 25-50 mg TID PRN Continue Metoprolol Referral to cardiology and hospitalist Regular diet
[2024-01-25] VITALS: BP 99/57; PULSE 70; PULSE 77; RESP 16; TEMP 36.8; O2SAT 97
[2024-01-25 04:00] VITALS: BP 103/62; PULSE 60; PULSE 83; RESP 16; TEMP 36.7; O2SAT 98; BMI 22.4
--- NOTE | 2024-01-25 04:50 | PC.NURSE ---
Pt is alert and oriented x4. at the beginning of this shift the pt was having episodes of tachycardia lasting aprox. 30-50 seconds and ranging from 120-140s. this nurse treated pt per MAR with metoprolol 12.5 mg (pt requested to only take 12.5 mg of 25mg tab, stated that taking the whole tab made her feel awful) . Pt HR is currently ranging 70-80s at rest and raises when she goes to the BR. Pt denies pain and nausea and has slept for the most part of the shift. significant other at bedside.
[2024-01-25] MEDS: ONDANSETRON 4MG ODT 4 MG SL ×2 (05:25→13:13)
--- NOTE | 2024-01-25 07:27 | P.CONCA_ITS ---
History of Present Illness History of Present Illness Consult date: 01/25/24 Requesting physician: Shalonda Mota Chief complaint: Palpitations, soa, near sycope, 12 weeks History of present illness: This is a 23-year-old white female with past medical history of palpitations, anxiety, , reports a history of 2 spontaneous miscarriages who is currently 12 weeks presented to emergency department with complaints of pal pitations, shortness of breath and reported syncope. Patient reports this has been going on intermittently for approximately 8 weeks. Patient reports she can tell when symptoms are starting because heart starts to beat fast, she developed shortness of breath, tingling in her hands and arms and vision will start to fade out. Of note, patient has been evaluated multiple times by multiple facilities including [facility] and for same complaints. Patient was DC from [facility] ER for same complaint on January 22. Patient reports she wore a Holter monitor in [place] and everything was within normal limits. Patient underwent an echocardiogram November 2023 which showed normal biventricular function with no significant valve stenosis or regurg noted. Patient was advised per her PROFESSOR OF MECHANICAL ENGINEERING to start Toprol 12.5 mg daily. Patient reports she was taking medication doing well for about 3 weeks before symptoms started again. Upon arrival to emergency department EKG were showed sinus tachycardia rate of 114. Labs were as follow: WBC 6.8, hemoglobin 13.2, D-dimer 0.8 in the setting of , sodium 136, potassium 3.5, creatinine 0.6, magnesium 1.7, serial troponins negative. PROFESSOR OF MECHANICAL ENGINEERING team has started buspirone 5 mg p.o. twice daily and Vistaril for anxiety. This morning patient is resting comfortably, denies chest pain or shortness of breath. Heart rate is normal sinus rhythm at a rate of 80. Of note patient had an CTA chest in November 2023 which was negative for acute process. Patient denies abdominal pain or vaginal bleeding. [facility] Disclaimer: The information contained in this section may have been updated after the patient was seen, as this information can be updated by other users. Medical History (Updated 01/25/24 @ 01:46 by Gabe Taylor APRN) Anxiety disorder affecting , antepartum Gilbert's disease Herpes simplex of female genitalia Tobacco dependence syndrome Surgical History Hx of dilation and curettage Hx of tonsillectomy Family History Other Family history of myocardial infarction Family history of stroke Social History (Updated 01/24/24 @ 15:02 by Areli Cavanaugh RN) Smoking Status: Never smoker second hand exposure: Yes alcohol intake: current alcohol intake frequency: holidays/special occasions only substance use type: denies use current occupational status: other Travel in the last 8 weeks: None housing: house Review of Systems Review of Systems Review of systems:: pertinent systems reviewed and negative unless documented below *Cardiovascular Cardiovascular: Reports chest pain, Reports dyspnea on exertion and Reports palpitations *Respiratory Respiratory: Reports dyspnea on exertion Endocrine Endocrine: Reports palpitations Exam Data for Last 24 hours Vital signs and Labs for Last 24 Hours: Temp Pulse Resp BP Pulse Ox O2 Del Method 98.1 F 83 16 103/62 L 98 Room Air 01/25/24 04:00 01/25/24 04:00 01/25/24 04:00 01/25/24 04:00 01/25/24 04:00 01/25/24 06:54 Laboratory Results - last 24 hr 01/24/24 11:27: D-Dimer 0.80 H, VBG pH 7.43 H, VBG pCO2 26.2 L, VBG pO2 30.9, VBG HCO3 16.8 L, VBG Total CO2 17.6 L, VBG O2 Saturation 68.0, VBG Base Excess - 7.6 L, VBG Lactic Acid 2.4 H, Magnesium 1.7 01/24/24 11:50: WBC 6.8, RBC 4.38, Hgb 13.2, Hct 39.2, MCV 89.5, MCH 30.2, MCHC 33.7, RDW 14.3, Plt Count 172, MPV 9.3, Neut % (Auto) 78.4, Lymph % (Auto) 18.9, Person % (Auto) 2.1, Eos % (Auto) 0.1, Baso % (Auto) 0.4, Neut # (Auto) 5.3, Lymph # (Auto) 1.3, Person # (Auto) 0.2, Eos # (Auto) 0.0, Baso # (Auto) 0.0, Sodium 136, Potassium 3.5, Chloride 104, Carbon Dioxide 19 L, Anion Gap 16.5 H, BUN 5 L D, Creatinine 0.60, Estimated Creat Clear 142, Estimated GFR 122, Est GFR ( Amer) 147, Glucose 127 H, Calcium 9.7, Total Bilirubin 2.2 H, AST 27, ALT 22 D, Alkaline Phosphatase 45, Troponin I < 0.01, Total Protein 8.3 H, Albumin 4.7, Globulin 3.6 H, Albumin/Globulin Ratio 1.3 01/24/24 14:08: Urine Color Yellow, Urine Appearance Clear, Urine pH 7.0, Ur Sp ecific [place] 1.010, Urine Protein Negative, Urine Glucose (UA) Negative, Urine Ketones Trace, Urine Blood Negative, Urine Nitrate Negative, Urine Bilirubin Negative, Urine Urobilinogen 0.2, Ur Leukocyte Esterase 2+ A, Urine WBC 5-10, Ur Squamous Epith Cells 3-5, Urine Bacteria Trace 01/24/24 15:40: Troponin I < 0.01 01/24/24 16:30: Lactate 0.7 01/24/24 18:40: Troponin I < 0.01 I & O for Last 24 hours: Intake & Output 01/22/24 01/23/24 01/24/24 01/25/24 23:59 23:59 23:59 23:59 Intake Total 275 / 635 360 / 360 Output Total 0 / 0 0 / 0 Balance 275 / 635 360 / 360 Weight 138 lb 134 lb 5 oz Constitutional Constitutional: no acute distress *Routine Respiratory Exam Respiratory: Present CTA bilaterally and symmetric chest movement *Routine Cardiovascular Exam Cardiovascular: Present RRR, Normal S1 and Normal S2 *Routine Abdominal Exam Abdominal: Present soft and normoactive bowel sounds; Absent tenderness *Routine Extremities Exam Extremities: Present full ROM and normal capillary refill; Absent edema *Routine Skin Exam Skin: Present intact, dry and warm Detailed Neck Exam: Thyroids Thyroid: Absent bruit Meds Home Medications and Allergies Home Medications Medication Instructions Recorded Confirmed Type vitamin no.180-ferrous 1 tab PO DAILY 12/05/23 01/24/24 History fumarate 27 mg-folic acid 1 mg tablet ( Plus Vitamin-Mineral) hydroxyzine HCl 25 mg tablet 25 mg PO TIDP PRN anxiety 12/07/23 01/24/24 History ondansetron HCl 4 mg tablet 4 mg PO Q8H PRN nausea and 12/08/23 01/24/24 Rx vomiting 3 days #9 tabs New Prescriptions to Start Prescriptions: Allergies Allergy/AdvReac Type Severity Reaction Status Date / Time amoxicillin [From Augmentin] Allergy Verified 01/20/24 16:02 clavulanic acid Allergy Verified 01/20/24 16:02 [From Augmentin] Penicillins Allergy Verified 01/20/24 16:02 Assessment and Plan *Assessment and plan (1) Anxiety disorder affecting , antepartum: Status: Acute Category: Medical Code(s): O99.340 - Other mental disorders complicating , unspecified trimester; F41.9 - Anxiety disorder, unspecified (2) Panic attack: Status: Acute Category: Medical Code(s): F41.0 - Panic disorder [episodic paroxysmal anxiety] (3) Syncope: Status: Acute Qualifiers: Syncope type: unspecified Qualified Code(s): R55 - Syncope and collapse Category: Medical Code(s): R55 - Syncope and collapse (4) Palpitations: Status: Acute Category: Medical Code(s): R00.2 - Palpitations Plan Palpitations/tachycardia Reported syncope Generalized anxiety -12 weeks Patient reports she wore a 48-hour Holter monitor in [place] which was normal Echo from November 2023 shows a normal biventricular function with no significant valve stenosis or regurg D-dimer is positive in the setting of . PE unlikely, given patient has had intermittent symptoms for 8 weeks and underwent a negative CTA of chest in November 2023. Patient denies any lower extremity edema or swelling. Only reports shortness of breath and chest pain with episodes. Denies LE edema or pain. adapted YEARS criteria excludes PE. Recommend patient be discharged home in a 2-week event monitor for further e valuation Change metoprolol tartrate to metoprolol succinate and increase to 25 mg p.o. daily-patient advised to take in the evening due to fatigue No driving or working until cleared per cardiology Anxiety-defer to PROFESSOR OF MECHANICAL ENGINEERING CV summary 01/25/2024: Patient is CV stable for discharge home. Please send patient home in a 2-week event monitor for further evaluation. Patient will be discharged on metoprolol succinate 25 mg p.o. daily for tachycardia. Please have patient follow-up in cardiology clinic on Thursday for reevaluation. No driving or working until cleared per cardiology. Cardiac discharge meds: Metoprolol succinate 25 mg p.o. daily-take in the evening
[2024-01-25 08:00] VITALS: BP 123/83; PULSE 105; PULSE 88; RESP 18; TEMP 36.4; O2SAT 99
[2024-01-25] MEDS: METOPROLOL SUCCINATE XL 25MG TABLET 25 MG PO (08:19)
[2024-01-25] MEDS: BUSPIRONE HCL 5 MG TABLET PO (08:19)
--- NOTE | 2024-01-25 08:27 | HMH.PHAINT1 ---
Pharmacy Intervention Comments: MEDICATION RECONCILIATION COMPLETED ON PATIENT USING EXTERNAL FILL HISTORY FROM PHARMACY. -ZAIRA YANEZ, FIDENCIOD
[2024-01-25 11:58] VITALS: BP 125/76; PULSE 91; RESP 16; TEMP 36.7; O2SAT 100
[2024-01-25 12:00] VITALS: PULSE 95
--- NOTE | 2024-01-25 13:30 | PC.NURSE ---
ATTEMPTED TO HELP PATIENT WALK FROM BED TO BATHROOM X2 ASSIST. PT TOOK A FEW STEPS AND STARTED TO FEEL DIZZY AND STATED I FEEL LIKE I AM HAVING A SPELL . NURSE CAME IN TO ASSIST GET PATIENT SAFELY BACK TO BED PATIENT WAS UNSTEADY. PT AGREED TO USE A BED SMART FOR VOIDING DUE TO THE STRAIN IT CAUSES TO WALK THE DISTANCE TO THE BATHROOM AND BACK.
--- NOTE | 2024-01-25 13:58 | EXP.MED.FU ---
Subjective *Date: 01/25/24 *Time: 15:56 Interval history: Denies any nausea or vomiting this morning. No headache. Blood pressure showed good response to metoprolol with improvement in heart rate. Patient states her episodes however occur after eating. Have gotten worse since becoming . She is personally concerned that she may have POTS disorder. Denies any history of postural tachycardia or orthostasis prior to becoming . Feels that her fast heart rate makes her anxious and makes her feel like she is going to . Does not think that she is anxious before the onset of her physiologic symptoms. Exam Data for Last 24 hours Vital signs and Labs for Last 24 Hours: Temp Pulse Resp BP Pulse Ox O2 Del Method 98.1 F 95 H 16 125/76 100 Room Air 01/25/24 11:58 01/25/24 12:00 01/25/24 11:58 01/25/24 11:58 01/25/24 11:58 01/25/24 13:00 Laboratory Results - last 24 hr 01/24/24 14:08: Urine Color Yellow, Urine Appearance Clear, Urine pH 7.0, Ur Specific [place] 1.010, Urine Protein Negative, Urine Glucose (UA) Negative, Urine Ketones Trace, Urine Blood Negative, Urine Nitrate Negative, Urine Bilirubin Negative, Urine Urobilinogen 0.2, Ur Leukocyte Esterase 2+ A, Urine WBC 5-10, Ur Squamous Epith Cells 3-5, Urine Bacteria Trace 01/24/24 15:40: Troponin I < 0.01 01/24/24 16:30: Lactate 0.7 01/24/24 18:40: Troponin I < 0.01 I & O for Last 24 hours: Intake & Output 01/22/24 01/23/24 01/24/24 01/25/24 23:59 23:59 23:59 23:59 Intake Total 275 / 635 1380 / 1380 Output Total 0 / 0 0 / 0 Balance 275 / 635 1380 / 1380 Weight 62.596 kg 60.923 kg Constitutional Constitutional: no acute distress *Routine HEENT Exam Head: Present normocephalic Eye: Present EOMI and PERRL ENT: Present mucous membranes moist *Routine Neck Exam Neck: Present supple; Absent lymphadenopathy *Routine Respiratory Exam Respiratory: Present CTA bilaterally; Absent respiratory distress, rhonchi, wheezes or crackles *Routine Cardiovascular Exam Cardiovascular: Present RRR *Routine Abdominal Exam Abdominal: Present soft and normoactive bowel sounds; Absent tenderness *Routine Rectal Exam Patient deferred: visual exam *Routine Exam Patient deferred: external exam *Routine Extremities Exam Extremities: Absent cyanosis, clubbing or edema *Routine Skin Exam Skin: Present warm; Absent rash *Routine Neurological Exam Neurological: Present alert, oriented X3 and moving all extremities; Absent altered mental status Assessment and Plan *Assessment and plan (1) Sinus tachycardia: Status: Acute Category: Medical Code(s): R00.0 - Tachycardia, unspecified (2) Syncope: Status: Acute Qualifiers: Syncope type: unspecified Qualified Code(s): R55 - Syncope and collapse Category: Medical Code(s): R55 - Syncope and collapse (3) Palpitations: Status: Acute Category: Medical Code(s): R00.2 - Palpitations (4) Hypertension affecting : Status: Acute Qualifiers: Trimester: first trimester Qualified Code(s): O16.1 - Unspecified maternal hypertension, first trimester Category: Medical Code(s): O16.9 - Unspecified maternal hypertension, unspecified trimester (5) Anxiety disorder affecting , antepartum: Status: Acute Category: Medical Code(s): O99.340 - Other mental disorders complicating , unspecified trimester; F41.9 - Anxiety disorder, unspecified Plan 23 yo at approximately 12 weeks, with PMHx HTN, Gilbert's syndrome and recent cholecystectomy who presented to [facility] ED with complaint of syncope. patient referred that she feels prodromes. started by tachycardia, palpitation, hand numbness and syncope. patient had different admission during this due to hypertention, chest pain tachycardia and palpitation.. She is being on metoprolol and anxiety medication per her primary LOCKER ROOM SUPERVISOR team. episodes are described on many differents situationa and does not seen related with activity, food or mental states, however many different past episodes occurred after meals. Patient recently had a holter monitor by cardiology team in the outside hospital, results are still pending. Medicine consulted to assist with treatment. Patient has remained stable and responded appropriately to beta-blockers. Discussed case with cardiology, agree with their plan at this time. I have nothing else to add to her plan at this point. Recommend adhering to regimen of metoprolol succinate once daily and Holter monitor to evaluate for any further episodes. Differential diagnosis includes POTS syndrome, panic attacks, anxiety, to name a few. Recommendations as follows:. pending results. medicine was consulted for co-management. Plan as follow: Sinus tachycardia, with palpitation and syncope or near syncope episode: Conditions to rule out POTS, hypertension, anxiety and panic attack Did well on telemetry, only sinus tachycardia at times. Morning labs stable. Discussed case with cardiology, agree with plan for Holter monitor. Agree with increasing metoprolol to succinate 25 mg once daily at night Encourage adequate hydration Reassurance offered. Would discourage her from driving at this time or operating heavy machinery. May benefit from referral to behavioral health for counseling/CBT. Per CONSTRUCTION SUPERINTENDENT team: started Buspirone 5 mg PO BID in the ED. Continue buspirone Increase vistaril to 25-50 mg TID PRN Thank you for the opportunity to consult on this patient. Patient stable to discharge from our standpoint. At this time we have no further recommendations. Medicine will sign off.
[2024-01-25 16:00] VITALS: BP 118/73; PULSE 100; PULSE 81; RESP 16; TEMP 36.9; O2SAT 98
--- NOTE | 2024-01-25 16:55 | EXP.DC.SUM ---
General Admission date:: 01/24/24 Discharge date: 01/25/24 HPI HPI HPI: This is a 23 yo at approximately 12 weeks, patient reported at least 3 spontaneous miscarriage, with PMHx HTN, Gilbert's syndrome and recent cholecystectomy who presented to [facility] ED with complaint of syncope. Patient referred that she feels prodromes. Started with tachycardia, palpitation, hand numbness and discoloration and syncope. Patient had several admission during this due to hypertension, chest pain tachycardia and palpitation.. She is being on metoprolol and anxiety medication per her primary SKATE SHOP ATTENDANT team. episodes are described on many differents situationa and does not seen related with activity, food or mental states, however many different past episodes occurred after meals. Patient recent had a holter monitor by cardiology team. pending results. medicine was consulted for co-management This is per SKATE SHOP ATTENDANT team: Ms Francy Delarosa is a 23 yo at approximately 12 weeks who presented to [facility] ED with complaint of syncope. She states her body will give her signs that she is going to pass out; her chest will get tight, she will start breathing faster, her hands and arms will get tingly, her mouth will get tingly, her mouth will get dry, her vision will start to go out, and then she will pass out. She has history of anxiety prior to but states this does not feel like any panic attack she has ever had. She admits one episode woke her from sleep. These episodes started about 8 weeks ago and have become more frequent. She has been receiving care in [place] but is moving back to [place]. She has had multiple ED visits and hospitalizations between [facility] and . She wore a holter monitor for 48 hours and it was within normal limits. She states [facility] started her on Metoprolol 25 mg PO daily but it made her feel really bad and she decreased it to 12.5 mg daily. She states the episodes stopped for about 3 weeks while taking Metoprolol. She is also taking Vistaril 25 mg PO TID PRN. However, episodes have returned and increased in frequency. She feels like something is very wrong. She denies cramping and vaginal bleeding. History of x 2. She is transferring care from [place] to Dr. Clark. Hospital Course Hospital Course Hospital Course: She was admitted and observed overnight. Investigations were essentially negative. She did have a couple of episodes of lightheadedness. She did not have any further episodes of anxiety. We discussed the possibility of POTS syndrome. We had her seen by cardiology as well as our hospitalist. She was started on a Holter monitor. Given the fact that she has anxiety, I have suggested we start Lexapro 10 mg and have called her in a prescription. She also seems to do well with Vistaril and I called her in a prescription for this as well. I told her she can take this up to 3 times a day. I have encouraged her to drink plenty of fluids and make sure she gets enough salt in her diet to retain fluid and keep up her blood pressure. She has another appointment scheduled for next week at cardiology and I will see her the same day. Her condition on discharge is stable and improved. Exam Data for Last 24 hours Vital signs and Labs for Last 24 Hours: Temp Pulse Resp BP Pulse Ox O2 Del Method 98.4 F 81 16 118/73 98 Room Air 01/25/24 16:00 01/25/24 16:00 01/25/24 16:00 01/25/24 16:00 01/25/24 16:00 01/25/24 16:41 Laboratory Results - last 24 hr 01/24/24 16:30: Lactate 0.7 01/24/24 18:40: Troponin I < 0.01 I & O for Last 24 hours: Intake & Output 01/23/24 01/24/24 01/25/24 01/26/24 11:59 11:59 11:59 11:59 Intake Total 1385 / 1385 270 / 270 Output Total 0 / 0 0 / 0 Balance 1385 / 1385 270 / 270 Weight 138 lb 134 lb 5 oz Constitutional Constitutional: no acute distress *Routine HEENT Exam Head: Present normocephalic *Routine Neck Exam Neck: Present supple and full ROM *Routine Respiratory Exam Respiratory: Present normal respiratory effort; Absent accessory muscle use Results Data Completed and Pending Labs on day of discharge: Labs from last 24 hours 01/24/24 01/24/24 18:40 16:30 Lactate 0.7 Troponin I < 0.01 DS: Diagnosis Discharge Diagnosis (1) Sinus tachycardia: Status: Acute Code(s): R00.0 - Tachycardia, unspecified (2) Syncope: Status: Acute Code(s): R55 - Syncope and collapse Qualifiers: Syncope type: unspecified Qualified Code(s): R55 - Syncope and collapse (3) Palpitations: Status: Acute Code(s): R00.2 - Palpitations (4) Hypertension affecting : Status: Acute Code(s): O16.9 - Unspecified maternal hypertension, unspecified trimester Qualifiers: Trimester: first trimester Qualified Code(s): O16.1 - Unspecified maternal hypertension, first trimester (5) Anxiety disorder affecting , antepartum: Status: Acute Code(s): O99.340 - Other mental disorders complicating , unspecified trimester; F41.9 - Anxiety disorder, unspecified Meds Home Medications and Allergies Home Medications Medication Instructions Recorded Confirmed Type vitamin no.180-ferrous 1 tab PO DAILY 12/05/23 01/24/24 History fumarate 27 mg-folic acid 1 mg tablet ( Plus Vitamin-Mineral) ondansetron HCl 4 mg tablet 4 mg PO Q8H PRN nausea and 12/08/23 01/24/24 Rx vomiting 3 days #9 tabs escitalopram oxalate 10 mg tablet 10 mg PO DAILY #30 tabs 01/25/24 Rx (Lexapro) hydroxyzine HCl 25 mg tablet 25 mg PO TIDP PRN anxiety #60 tabs 01/25/24 Rx New Prescriptions to Start Prescriptions: escitalopram oxalate [Lexapro] Luis Clark hydroxyzine HCl Luis Clark Allergies Allergy/AdvReac Type Severity Reaction Status Date / Time amoxicillin [From Augmentin] Allergy Verified 01/20/24 16:02 clavulanic acid Allergy Verified 01/20/24 16:02 [From Augmentin] Penicillins Allergy Verified 01/20/24 16:02 Discharge Plan Disposition Patient Disposition: Home, Self-Care Follow up Plan Follow up with: Luis Clark MD [Staff Physician] - 02/01/24 10:30 am Molly Louis MD [Referring] - 02/01/24 3:45 pm Jim Cash MD [Staff Physician] - 02/15/24 3:00 pm Prescriptions/Medication Reconciliation: New escitalopram oxalate [Lexapro] 10 mg tablet 10 mg PO DAILY Qty: 30 5RF Continued Plus Vitamin-Mineral 27 mg iron- 1 mg Tablet 1 tab PO DAILY hydroxyzine HCl 25 mg tablet 25 mg PO TIDP PRN (Reason: anxiety) Qty: 60 1RF ondansetron HCl 4 mg tablet 4 mg PO Q8H PRN (Reason: nausea and vomiting) 3 Days Qty: 9 0RF Problem Reconciliation Problems Reviewed?: Yes Patient Discharge Instructions ACTIVITY: Ambulate as tolerated DIET: continue same diet Patient Instructions: DI for Anxiety -- Adult, DI for Panic Disorder Providers Primary Care Provider: Provider,Referral Admit Provider: Shalonda Mota Attending Provider: Shalonda Mota
--- NOTE | 2024-01-26 13:39 | CARE MANAGER ---
Contacted patient related to hospital discharge. She states she is aware of all her appointments and has medication. She does not think she can wait until the cardiology appointment and wants to be seen sooner. Connected her with cardiology to address that. Denied any other questions or concerns at this time. JANELL Neil
== END 2024-01-25 17:32 | disposition home or self-care (01) ==
LOC: ER 14:50 → 2ND 14:56
PROVIDERS: Admitting Provider Obstetrics & Gynecology; Emergency Provider Emergency Medicine; Visit Provider Obstetrics & Gynecology
DX: F41.0 Panic disorder [episodic paroxysmal anxiety] (principal); O99.341 Other mental disorders complicating pregnancy, first trimester; Z3A.12 12 weeks gestation of pregnancy; O10.911 Unspecified pre-existing hypertension complicating pregnancy, first trimester; E80.4 Gilbert syndrome; R55 Syncope and collapse; R00.0 Tachycardia, unspecified; R00.2 Palpitations
CPT/HCPCS: 36415; 80053; 81001; 82803; 83605; 83735; 84484; 85025; 85378; 87086; 93005; 93225; 93227; 99285; G0378; J7120

== ENCOUNTER 2024-01-28 17:56 | Emergency (ER) | payer OTHER, MEDICAID, SELFPAY ==
[2024-01-28 17:56] VITALS: BP 158/96; PULSE 97; RESP 16; TEMP 36.6; O2SAT 100; BMI 22.9
--- NOTE | 2024-01-28 17:58 | ECG_ITS ---
APPROVED REPORT Exam: Resting ECG HR:99 bpm ECG Measurements Heart Rate 99 AXES MO 109 P 49 QRSd 77 QRS 57 QT 316 T 50 QTc 372 Conclusion SINUS RHYTHM WITH SINUS ARRHYTHMIA Electronically signed by : MOSES RAY, 01/28/2024 18:51:17
--- NOTE | 2024-01-28 18:17 | HMH.EDCP ---
Discharge Plan Disposition Patient Disposition: Home, Self-Care Chief Complaint: Chest Pain Prescriptions Prescriptions: No Action Plus Vitamin-Mineral 27 mg iron- 1 mg Tablet 1 tab PO DAILY hydroxyzine HCl 25 mg tablet 25 mg PO TIDP PRN (Reason: anxiety) Qty: 60 1RF escitalopram oxalate [Lexapro] 10 mg tablet 10 mg PO DAILY Qty: 30 5RF ondansetron HCl 4 mg tablet 4 mg PO Q8H PRN (Reason: nausea and vomiting) 3 Days Qty: 9 0RF Referrals Follow up/Referrals: Provider,Referral, MD [Referring] - See instructions Activity Restrictions/Add. Instructions Additional Instructions/Restrictions: Continue staying hydrated. Zofran for nausea. Follow-up outpatient with your ASSURANCE SENIOR MANAGER INSURANCE and cardiology for further definitive management. Clinical Impressions Clinical Impression: Heart palpitations, Vomiting Discharge ED Provider: Juni Leonardo HPI General Chief Complaint: Chest Pain Stated Complaint: chest pain Time Seen by Provider: 01/28/24 17:57 Mode of Arrival: Wheelchair Source of Information: Patient Limitations: No Limitations Description of Symptoms (Recalled from ER Triage Doc. by RN): Patient complains of being weak, increased heart rate and chest pain. History of Present Illness HPI narrative: Please note that above description of symptoms, in this electronic medical record under categorization of recalled from ER triage doctor by RN are reflective of an initial nursing assessment, however, is not reflective of my full history and physical exam that was personally taken and clarified. Consequentially, this preceding description of symptoms, which may include the patient's categorized chief complaint in the EMR, do not reflect my personal clinical impression, and the ultimate description of history of present illness and patient stated complaints should be deferred to this section of the note. Unless stated otherwise or congruent with this section of the note, additional signs, symptoms, or incongruence should be interpreted as inaccurate with my clinical impression. Related Data Home Medications Medication Instructions Recorded Confirmed vitamin no.180-ferrous 1 tab PO DAILY 12/05/23 01/24/24 fumarate 27 mg-folic acid 1 mg tablet ( Plus Vitamin-Mineral) Previous Rx's Medication Instructions Recorded ondansetron HCl 4 mg tablet 4 mg PO Q8H PRN nausea and 12/08/23 vomiting 3 days #9 tabs escitalopram oxalate 10 mg tablet 10 mg PO DAILY #30 tabs 07/01/24 (Lexapro) hydroxyzine HCl 25 mg tablet 25 mg PO TIDP PRN anxiety #60 tabs 01/25/24 Allergies Allergy/AdvReac Type Severity Reaction Status Date / Time amoxicillin [From Augmentin] Allergy Verified 01/20/24 16:02 clavulanic acid Allergy Verified 01/20/24 16:02 [From Augmentin] Penicillins Allergy Verified 01/20/24 16:02 [facility] Disclaimer: The information contained in this section may have been updated after the patient was seen, as this information can be updated by other users. Medical History (Updated 01/28/24 @ 19:42 by Juni Leonardo MD) Norovirus Enteritis due to Norovirus Elevated brain natriuretic peptide (BNP) level of unknown anatomic location Diarrhea Chest pain Anxiety disorder affecting , antepartum Gilbert's disease Herpes simplex of female genitalia Tobacco dependence syndrome Surgical History Hx of dilation and curettage Hx of tonsillectomy Family History Other Family history of myocardial infarction Family history of stroke Social History (Updated 01/24/24 @ 15:02 by Areli Cavanaugh RN) Smoking Status: Unknown if ever smoked second hand exposure: Yes alcohol intake: current alcohol intake frequency: holidays/special occasions only substance use type: denies use current occupational status: other Travel in the last 8 weeks: None housing: house ROS Obtained: Yes All systems reviewed & no additional complaints except as documented Physical Exam General General appearance: alert and anxious (Tearful) Neck Neck exam: Present trachea midline Chest Chest inspection: Present normal inspection and symmetric chest wall rise Respiratory Respiratory exam: Present normal lung sounds bilaterally; Absent respiratory distress, wheezes, stridor, accessory muscle use or prolonged expiratory phase Cardiovascular Cardiovascular exam: Present normal rhythm and tachycardia Extremities Exam Extremities exam: Absent edema Neurological Exam Neurological exam: Present alert, oriented X3 and CN II-XII intact Skin Skin exam: Present warm and dry; Absent cyanosis, diaphoresis or pallor HEART Score HEART Score HEART Score assessment performed?: Yes HEART Score: 0 Critical Care Critical Care Time Critical Care Time: No Medical Decision Making Medical Records Medical records reviewed: Yes I reviewed the patient's medical records. Paresh Inquiry Pt receiving controlled substance: No Paresh was queried for this patient: No Vital Signs Vital Signs: 01/28/24 17:56 Temperature 97.8 F Temperature Source Oral Pulse Rate [Radial] 97 H Respiratory Rate 16 Blood Pressure [Right Arm] 158/96 H Blood Pressure Mean [Right Arm] 116 Blood Pressure Source [Right Arm] Automatic Cuff Blood Pressure Position [Right Arm] Sitting 02 Sat by Pulse Oximetry 100 Oxygen Delivery Method Room Air Lab Data Labs: Lab Results 01/28/24 18:00: WBC 7.0, RBC 4.44, Hgb 13.6, Hct 39.0, MCV 87.9, MCH 30.6, MCHC 34.8, RDW 14.1, Plt Count 178, MPV 9.1, Neut % (Auto) 72.5, Lymph % (Auto) 22.5, [place] % (Auto) 3.5, Eos % (Auto) 1.0, Baso % (Auto) 0.4, Neut # (Auto) 5.1, Lymph # (Auto) 1.6, [place] # (Auto) 0.3, Eos # (Auto) 0.1, Baso # (Auto) 0.0, Sodium 136, Potassium 3.3 L, Chloride 108 H, Carbon Dioxide 18 L, Anion Gap 13.3, BUN 8, Creatinine 0.60, Estimated Creat Clear 142, Estimated GFR 122, Est GFR ( Amer) 147, Glucose 103 H, Calcium 9.9, Magnesium 1.8, Total Bilirubin 1.8 H, AST 23, ALT 15, Alkaline Phosphatase 48, Troponin I < 0.01, NT-Pro-B Natriuret Pep < 20.0, Total Protein 7.7, Albumin 4.4, Globulin 3.3 H, Albumin/Globulin Ratio 1.3, HCG, Quant [id number] H 01/28/24 18:00 01/28/24 18:00 Response Orders (Tests/Meds): ED MEDICATIONS Discontinued Medications Generic Name Dose Route Start Last Admin Trade Name Freq PRN Reason Stop Dose Admin Diphenhydramine HCl 25 mg 01/28/24 18:19 01/28/24 18:22 Diphenhydramine 50mg/Ml Vial IV 01/28/24 18:20 Not Given ONCE ONE Sodium Chloride 1,000 mls @ 999 mls/hr 01/28/24 18:12 01/28/24 18:21 Sod Chlor 0.9% 1000ml Bag IV 01/28/24 19:12 999 mls/hr .Q1H1M ONE Administration Metoclopramide HCl 10 mg 01/28/24 18:19 01/28/24 18:22 Metoclopramide Hcl 10mg/2ml Vial IVP 01/28/24 18:20 Not Given ONCE ONE Potassium Chloride 60 meq 01/28/24 18:37 01/28/24 18:48 Potassium Chloride 20meq Tab PO 01/28/24 18:38 60 meq ONCE ONE Administration ORDERS Category Date Time Status POCUS Point of Care (ER Only) Stat Exams 01/28/24 19:26 Ordered CBC w/Auto Diff [Complete Blood Count Auto Diff] Stat Lab 01/28/24 18:00 Completed CMP [Comprehensive Metabolic Panel] Stat Lab 01/28/24 18:00 Completed HCG,Quantitative Stat Lab 01/28/24 18:00 Completed MAG [Magnesium] Stat Lab 01/28/24 18:00 Completed NT Pro Brain Natriuretic Pep. Stat Lab 01/28/24 18:00 Completed Trop I [Troponin I] Stat Lab 01/28/24 18:00 Completed Troponin I Q3H Lab 01/28/24 21:15 Ordered Troponin I Q3H Lab 01/29/24 00:15 Ordered MDM Narrative Medical Decision Narrative: 23-year-old female well-known to the emergency department for tachycardia, also known to neighboring emergency departments for similar symptoms presenting with tachycardia, chest pressure/pain, vomiting. Patient has been seen in multiple emergency departments over the past week including this emergency department twice. Patient states she has been having palpitations, [facility] to [facility] as [facility] in addition to here. Was found that nothing was wrong at that time, came back to this hospital, was admitted a couple days prior to this, workup was negative and patient appropriate for home-going discharge with cardiology follow-up. Patient states that today, 01/27, she started having another episode where she had numbness and tingling in her hands, tachycardia, palpitations, chest pressure, then projectile vomiting. No blood in her vomit. She does have a son who was sick, does not know if this is related, he has cough without fever and URI symptoms. This is similar to patient's previous experiences, however this time with vomiting is different. History was obtained via conversation with patient and outside hospital chart review. On arrival, patient hemodynamically stable, alert, oriented x4, appropriate, GCS 15, moving all extremities spontaneously, pupils equal and reactive to light. Full physical exam performed and significant for anxious, tearful appearing girl in no acute distress. Tachycardic, but cardiac exam otherwise normal. Pulses equal and symmetric in upper and lower extremities. No murmurs, gallops, rubs. No lower extremity edema. Patient hypertensive, saturating appropriately on room air. Lungs are clear to auscultation. Differential includes anxiety, panic, POTS, metabolic abnormality, dehydration, iatrogenic anemia, among others. Patient was given normal saline, Reglan and Benadryl for symptomatic management and correction of underlying abnormalities. Independent interpretation of EKG shows sinus rhythm 99 beats a minute with no ST or T wave changes concerning for acute ischemia. Nonspecific T wave inversions V3 without reciprocal change.. Workup independently interpreted and significant for nonactionable CBC. Chemistry with hypokalemia. Bedside [id number] ultrasound with heart tones 164, good movements, acceptable amniotic fluid index. Patient placed on continuous cardiac monitoring and continuous pulse ox with initial blood pressure 158/96, heart rate 97, saturation 100% on room air. Heart score 0. On reevaluation, patient resting comfortably. Given 60 mg of p.o. potassium. OB was contacted and case was discussed at length given a drop in hCG, Dr. Carroll stated it is normal for the hCG to drop. Reassurance was offered to patient, outpatient workup appropriate. Because patient at baseline without signs or symptoms of clinical decompensation, deemed appropriate for discharge. Results were relayed to patient who voiced understanding and were agreeable to outpatient management and follow up. I discussed my clinical impression with patient and answered all questions. At this time, the evidence for any other entities in the differential is insufficient to warrant any further testing or ED observation. This was explained as well. Advisory was given that persistent or worsening symptoms require further evaluation. I confirmed the understanding of this discussion. Mechanical Field Engineer disclaimer Much of this encounter note is an electronic shrimp boat captain spoken language to printed text. Electronic shrimp boat captain of the spoken language may permit errors. Although I have reviewed the note, some errors may still exist.
[2024-01-28] MEDS: 0.9 % SODIUM CHLORIDE 1000ML 1,000 ML 999 ML IV (18:21)
[2024-01-28 18:23] LABS: Basophils % 0.4 % (0.1-2.0); Chloride 108 mmol/L (98-107); Eosinophils # 0.1 K/mm3 (0.0-0.4); Hemoglobin 13.6 g/dL (12.2-16.2); Lymphocytes # 1.6 K/mm3 (0.7-4.5); Lymphocytes % 22.5 % (10-50); Mean Corpuscular HGB Conc 34.8 g/dL (31.8-35.4); Mean Corpuscular Hemoglobin 30.6 pg (27.0-31.2); Mean Corpuscular Volume 87.9 fl (81-99); Mean Platelet Volume 9.1 fl (7.4-10.4); Monocytes # 0.3 K/mm3 (0.1-1.0); Monocytes % 3.5 % (1.7-9.3); Neutrophils # 5.1 K/mm3 (1.8-7.8); Neutrophils % 72.5 % (37.0-80.0); Platelet Count 178 K/mm3 (142-424); Red Blood Count 4.44 M/mm3 (4.20-5.40); Red Cell Distribution Width 14.1 % (11.5-17.5); Sodium 136 mmol/L (136-145)
[2024-01-28 18:24] LABS: Potassium 3.3 mmoL/L (3.5-5.1)
[2024-01-28 18:26] LABS: Alanine Aminotransferase 15 U/L (12-78); Alkaline Phosphatase 48 U/L (38-126); Anion Gap 13.3 mEq/L (5-15); Aspartate Amino Transferase 23 U/L (14-36); Bilirubin,Total 1.8 mg/dl (0.2-1.3); Blood Urea Nitrogen 8 mg/dl (7-17); Carbon Dioxide 18 mmol/L (22.0-30.0); Creatinine Clearance Estimated 142 mL/min (50-200); Estimated Glomerular Filt Rate 122 ml/min (>60); GFR (African American) 147 ML/MIN (>60)
[2024-01-28 18:27] LABS: Albumin Level 4.4 g/dl (3.5-5.0); Albumin/Globulin Ratio 1.3 (1.1-1.8); Calcium 9.9 mg/dl (8.4-10.2); Globulin 3.3 g/dL (1.3-3.2); Glucose 103 mg/dl (74-100); Magnesium 1.8 mg/dl (1.6-2.3); Total Protein,Serum 7.7 g/dl (6.3-8.2)
[2024-01-28 18:35] LABS: NT Pro Brain Natriuretic Pep. < 20.0 pg/mL (0-125)
[2024-01-28 18:40] LABS: Troponin I < 0.01 ng/ml (0.00-0.034)
[2024-01-28] MEDS: POTASSIUM CHLORIDE 20MEQ TAB 60 MEQ PO (18:48)
--- NOTE | 2024-01-28 19:24 | PC.NURSE ---
on phone with Dr pino @ this time
--- NOTE | 2024-01-28 19:27 | PC.NURSE ---
Dr. Schmidt at bedside with ultrasound machine for POCUS
[2024-01-28 19:28] LABS: HCG,Quantitative 143890 mIU/ml (0-5.42)
[2024-01-28 20:08] VITALS: BP 134/92; PULSE 92; RESP 18; TEMP 36.8; O2SAT 100
== END 2024-01-28 20:09 | disposition home or self-care (01) ==
PROVIDERS: Emergency Provider Emergency Medicine; PCP Orthopaedic Surgery
DX: O26.899 Other specified pregnancy related conditions, unspecified trimester (principal); R07.9 Chest pain, unspecified; R00.2 Palpitations; R11.10 Vomiting, unspecified; E87.6 Hypokalemia; Z3A.00 Weeks of gestation of pregnancy not specified
CPT/HCPCS: 80053; 83735; 83880; 84484; 84702; 85025; 93005; 96361; 96374; 96375; 99284

== ENCOUNTER 2024-01-29 10:28 | Outpatient (CLI) | payer MEDICAID, SELFPAY | END 2024-01-29 23:59 | disposition home or self-care (01) | LOC: RT 10:29 | PROVIDERS: Visit Provider Internal Medicine | DX: R00.0 Tachycardia, unspecified (principal); R00.2 Palpitations | CPT/HCPCS: 93270 ==

== ENCOUNTER 2024-02-01 11:48 | Outpatient (CLI) | payer MEDICAID, SELFPAY ==
[2024-02-01] VITALS (8 sets, daily range): BP systolic 126–133; BP diastolic 73–87; PULSE 84–96; RESP 16–18; TEMP 36.7; O2SAT 99–100
[2024-02-01] MEDS: MVI, ADULT NO.1 WITH VIT K 10 ML, THIAMINE HCL 100 MG, MAGNESIUM SULFATE 2 GM in LACTAT... 125 ML IV (12:35)
== END 2024-02-01 16:45 | disposition home or self-care (01) ==
LOC: INF 11:48
PROVIDERS: PCP Family Medicine; Visit Provider Nurse Practitioner Obstetrics & Gynecology
DX: O21.9 Vomiting of pregnancy, unspecified (principal); Z3A.19 19 weeks gestation of pregnancy
CPT/HCPCS: 87086; 96365; 96366; J3411; J7120

== ENCOUNTER 2024-02-03 10:44 | Outpatient (CLI) | payer MEDICAID, SELFPAY ==
[2024-02-03] VITALS (9 sets, daily range): BP systolic 99–124; BP diastolic 63–73; PULSE 85–90; RESP 20; TEMP 36.6; O2SAT 98–99
[2024-02-03] MEDS: MVI, ADULT NO.1 WITH VIT K 10 ML, THIAMINE HCL 100 MG, MAGNESIUM SULFATE 2 GM in LACTAT... 250 ML IV (11:28)
== END 2024-02-03 15:47 | disposition home or self-care (01) ==
LOC: INF 10:45
PROVIDERS: PCP Family Medicine; Visit Provider Nurse Practitioner Obstetrics & Gynecology
DX: G90.A Postural orthostatic tachycardia syndrome [POTS] (principal); O21.1 Hyperemesis gravidarum with metabolic disturbance
CPT/HCPCS: 96360; 96361; J3411; J7120

== ENCOUNTER 2024-02-05 15:11 | Observation (INO) | payer OTHER, MEDICAID, SELFPAY ==
[2024-02-05] VITALS (10 sets, daily range): BP systolic 110–145; BP diastolic 67–86; PULSE 84–118; RESP 16–24; TEMP 36.4–37.1; O2SAT 99–100; BMI 19.5; BMI 21.1
[2024-02-05] MEDS: MVI, ADULT NO.1 WITH VIT K 10 ML, THIAMINE HCL 100 MG, MAGNESIUM SULFATE 2 GM in LACTAT... 150 ML IV (10:00)
[2024-02-05] MEDS: ONDANSETRON 4MG/2ML VIAL 4 MG IV (10:09)
--- NOTE | 2024-02-05 11:50 | PC.NURSE ---
1126- pt MIL rang out that pt was having an episode . upon entering the room, pt was experiencing whole body tremors. HR was sustained between 110-120. BP was stable, 132/73, oxygen sat 100%. RR 24. Pt stated she has these episodes often and they usually resolve on thier own. Within approx 4-5 mins, pt HR leveled out to her baseline at 90-95. symptoms resolved. vitals WNL. office contacted and this RN spoke to Noa Chow MA who stated she would contact the professional development instructor physician, no additional orders received at this time.
--- NOTE | 2024-02-05 15:20 | PC.NURSE ---
1515- pt transported to OB unit via wheelchair and report given. pt still has 22g IV in left forearm present.
--- NOTE | 2024-02-05 15:43 | ECG_ITS ---
APPROVED REPORT Exam: Resting ECG HR:92 bpm ECG Measurements Heart Rate 92 AXES ND 141 P 72 QRSd 88 QRS 63 QT 336 T 47 QTc 386 Conclusion SINUS RHYTHM NONSPECIFIC ST & T-WAVE ABNORMALITY BORDERLINE ECG UNCONFIRMED REPORT Electronically signed by : Prem Grant MD 02/06/2024 10:34:43
--- NOTE | 2024-02-05 16:00 | HMH.PHAINT1 ---
Pharmacy Intervention Comments: MEDICATION RECONCILIATION COMPLETE USING MOST RECENT CARDIOLOGY OFFICE VISIT, EXTERNAL PHARMACY FILL HISTORY, AND MOST RECENT HOSPITAL DISCHARGE NOTE.
[2024-02-05] MEDS: LACTATED RINGERS 1000ML 1,000 ML 75 ML IV (16:11)
--- NOTE | 2024-02-05 18:21 | EXP.OB.APHP ---
OB - H&P: HPI Antepartum History of Present Illness Chief complaint: Tachycardia, chest pressure, weakness and nausea History of present illness: Ms Francy Delarosa is a 23 yo who was sent to L&D for observation after 3-4 episodes of tachycardia, chest pressure, weakness and nausea while getting Rally pack infusion. The episodes started with . She states they are becoming more frequently, about every other day. She is following with cardiology for tachycardia and currently taking Metoprolol 37.5 mg daily. She states on Thursday she went to for symptoms because she felt so bad. She reports her heart rate increased to 175 bpm while she was there. Yesterday she had an episode after eating. She states a full stomach triggers the episodes. She is afraid to eat. History of Present Criteria for establishing EDC:: based on 1st trimester US only [facility] Disclaimer: The information contained in this section may have been updated after the patient was seen, as this information can be updated by other users. Medical History POTS (postural orthostatic tachycardia syndrome) Anxiety disorder affecting , antepartum Norovirus Enteritis due to Norovirus Elevated brain natriuretic peptide (BNP) level Gilbert's disease of unknown anatomic location Diarrhea Chest pain Herpes simplex of female genitalia Tobacco dependence syndrome Surgical History Hx of dilation and curettage Hx of tonsillectomy Family History Other Family history of myocardial infarction Family history of stroke Social History (Updated 02/03/24 @ 11:52 by Silverio Calvin RN) Smoking Status: Unknown if ever smoked second hand exposure: Yes alcohol intake: current alcohol intake frequency: holidays/special occasions only substance use type: denies use current occupational status: employed Travel in the last 8 weeks: None housing: house Review of Systems Review of Systems Review of systems:: pertinent systems reviewed and negative unless documented below Constitutional Constitutional: Reports weakness and Reports weight loss *Cardiovascular Cardiovascular: Reports chest pain (during episodes of tachycardia) *Gastrointestinal Gastrointestinal: Reports nausea (with episodes of tachycardia) *Neurologic Neurologic: Reports weakness Meds Home Medications and Allergies Home Medications Medication Instructions Recorded Confirmed Type vitamin no.180-ferrous 1 tab PO DAILY 12/05/23 02/05/24 History fumarate 27 mg-folic acid 1 mg tablet ( Plus Vitamin-Mineral) hydroxyzine HCl 25 mg tablet 25 mg PO TIDP PRN anxiety #60 tabs 01/25/24 02/05/24 Rx buspirone 5 mg tablet 5 mg PO BID #60 tabs 01/29/24 02/05/24 Rx escitalopram oxalate 10 mg tablet 10 mg PO DAILY 02/05/24 02/05/24 History metoprolol succinate 25 mg 37.5 mg PO DAILY 02/05/24 02/05/24 History tablet,extended release 24 hr ondansetron HCl 4 mg tablet 4 mg PO Q8HP PRN nausea and 02/05/24 02/05/24 History vomiting New Prescriptions to Start Prescriptions: Allergies Allergy/AdvReac Type Severity Reaction Status Date / Time cinnamon Allergy Severe Swelling Verified 02/03/24 11:53 of Lip/Tongue/Throat amoxicillin [From Augmentin] Allergy Verified 02/03/24 11:53 clavulanic acid Allergy Verified 02/03/24 11:53 [From Augmentin] Penicillins Allergy Verified 02/03/24 11:53 OB - H&P: Exam Physical Exam Vital signs: Temp Pulse Resp BP Pulse Ox O2 Del Method 98.1 F 90 18 145/86 H 100 Room Air 02/05/24 15:42 02/05/24 16:00 02/05/24 15:42 02/05/24 15:42 02/05/24 15:42 02/05/24 15:42 Constitutional no acute distress and cooperative Routine HEENT Exam Head: Present normocephalic and atraumatic Eye: Absent conjunctivae pink ENT: Present mucous membranes moist Routine Neck Exam Present full ROM Routine Respiratory Exam Present CTA bilaterally and normal respiratory effort Routine Cardiovascular Exam Present RRR Routine Abdominal Exam Present soft; Absent tenderness Routine Rectal Exam Patient deferred: visual exam Routine Exam Patient deferred: external exam Routine Extremities Exam Present full ROM; Absent edema or calf tenderness Routine Neurological Exam Present alert, moving all extremities and normal speech Routine Psychiatric Exam Present normal affect and cooperative OB - A/P Antepartum (1) Sinus tachycardia: Status: Acute (2) Near syncope: Status: Acute (3) Palpitations: Status: Acute (4) Chest pain during : Status: Acute (5) Anxiety: Status: Acute Additional Plan Additional Information:: Admit for observation EKG Maintenance IV fluids Regular diet Zofran ODT PRN FHTs q shift Cardiology consult
--- NOTE | 2024-02-06 00:20 | PC.NURSE ---
0010 Report received from Leticia Segundo RN
[2024-02-06 04:35] VITALS: BP 129/72; PULSE 85; RESP 20; TEMP 36.4; O2SAT 99
[2024-02-06] MEDS: LACTATED RINGERS 1000ML 1,000 ML 75 ML IV (05:52)
[2024-02-06] MEDS: ONDANSETRON 4MG/2ML VIAL 4 MG IV (06:01)
[2024-02-06 08:00] VITALS: PULSE 90
[2024-02-06 08:30] VITALS: BP 117/70; PULSE 78; RESP 18; TEMP 36.6; O2SAT 100
[2024-02-06 12:00] VITALS: PULSE 110
--- NOTE | 2024-02-06 12:53 | EXP.ACUTE.PN ---
Subjective *Date: 02/06/24 *Time: 12:53 Interval history: She admits she is feeling about the same. Resting in bed. She reports two small episodes of tachycardia, chest pain, weakness and nausea sine admission. She also forgot to mention that she has been seeing stars occasionally since this all started about 4 weeks ago. She has been nibbling on food but not eating much. She thinks IV fluids help. She has a holter monitor on and is supposed to wear it until Thursday. She doesn't feel comfortable going home. She states her bowels feel kind of crampy. She hasn't had a BM in two days. She reports stomach issues since she was a child. Medical Exam Vital signs and Labs for Last 24 Hours: Vital Signs Temp Pulse Pulse Resp BP Pulse Ox O2 Del Method 02/06/24 08:30 97.8 F 78 18 117/70 100 Room Air 02/06/24 08:00 90 02/06/24 04:35 97.6 F 85 20 129/72 99 Room Air 02/05/24 23:56 98.7 F 84 16 110/70 99 Room Air 02/05/24 19:23 97.6 F 94 H 20 116/72 100 Room Air 02/05/24 16:00 90 02/05/24 15:42 98.1 F 87 18 145/86 H 100 Room Air 02/05/24 15:22 Room Air 02/05/24 14:15 100 H 20 138/73 100 Room Air 02/05/24 13:00 103 H 21 134/71 100 Room Air Intake and Output 02/05/24 02/06/24 02/06/24 23:59 07:59 15:59 Intake Total 1149 / 1149 Output Total 200 / 200 250 / 250 Balance -200 / -200 899 / 899 Intake: Intake, Oral Amount 150 / 150 Intake, Total IV Amount 999 / 999 Lactated Ringers 1000ML 1,000 999 / 999 ml @ 75 mls/hr IV .[id number] Rx#:[id number] Output: Output, Urine Amount 200 / 200 250 / 250 Other: Number of Unmeasured Voids 1 I & O for Labs for Last 24 Hours: Intake & Output 02/03/24 02/04/24 02/05/24 02/06/24 23:59 23:59 23:59 23:59 Intake Total 1149 / 1149 Output Total 200 / 200 250 / 250 Balance -200 / -200 899 / 899 Weight 127 lb Head: Present atraumatic and normocephalic ENT: Present mucous membranes moist Neck: Present normal inspection and full ROM Respiratory: Present CTA bilaterally and normal respiratory effort Cardiac: Present Reg Rate and Rhythm GI: Present soft and tenderness (mild epigastric tenderness to palpation); Absent distention Rectal (female): Present deferred (female): Present deferred Extremities: Present normal inspection and full ROM; Absent edema or calf tenderness Neuro: Present alert, awake and moves all extremities Assessment and Plan *Assessment and plan (1) Heart palpitations: Status: Acute Category: Medical Code(s): R00.2 - Palpitations (2) Vomiting: Status: Acute Category: Medical Code(s): R11.10 - Vomiting, unspecified (3) Panic attack: Status: Acute Category: Medical Code(s): F41.0 - Panic disorder [episodic paroxysmal anxiety] (4) Near syncope: Status: Acute Category: Medical Code(s): R55 - Syncope and collapse (5) Sinus tachycardia: Status: Acute Category: Medical Code(s): R00.0 - Tachycardia, unspecified (6) Chest pain during : Status: Acute Category: Medical Code(s): O99.891 - Other specified diseases and conditions complicating ; R07.9 - Chest pain, unspecified (7) Anxiety disorder affecting , antepartum: Status: Acute Category: Medical Code(s): O99.340 - Other mental disorders complicating , unspecified trimester; F41.9 - Anxiety disorder, unspecified Plan Encouraged small, frequent snacks instead of meals. Episodes resolve spontaneously and seem to be brought on by eating. ?Anorexia? Discussed referral to dietition outpatient. She is agreeable Follow-up with cardiology as scheduled Continue current medication Protonix and Miralax prescribed Continue FHT q shift CBC and CMP ordered for tomorrow morning Plan d/c home tomorrow
[2024-02-06] MEDS: PANTOPRAZOLE 40MG TABLET 40 MG PO (14:05)
[2024-02-06] MEDS: BUSPIRONE HCL 5 MG TABLET PO ×2 (14:06→21:02)
[2024-02-06] MEDS: POLYETHYLENE GLYCOL 3350 17 GM PACKET PO (14:20)
[2024-02-06 14:55] VITALS: BP 134/81; PULSE 101; RESP 18; O2SAT 100
[2024-02-06 16:00] VITALS: PULSE 100
--- NOTE | 2024-02-07 07:14 | EXP.DC.SUM ---
General Admission date:: 02/05/24 Discharge date: 02/07/24 HPI HPI HPI: She is a 23-year-old 8 para 2 aborta 5 who has POTS. She is currently 13 weeks gestational age and gets infusions of vitamins 3 times weekly. She feels better when she gets these. While in the infusion center on February 04 she began feeling unwell and was having some tachycardic episodes. As result of that we elected to admit her for observation. She also has severe nausea and vomiting associate with the . She is currently wearing a Holter monitor to monitor her heart rate. Hospital Course Hospital Course Hospital Course: She was continued on IV fluids while hospitalized and the night before discharge asked for her IV to be removed. On the morning of discharge she seems to be doing a little better but she continues to have nausea. She will be discharged home to follow-up with me tomorrow. She will continue with 3 times weekly infusions of vitamins. We will have her see high risk in [place] as well. Her condition on discharge is stable and improved. Exam Data for Last 24 hours Vital signs and Labs for Last 24 Hours: Temp Pulse Resp BP Pulse Ox O2 Del Method 97.8 F 100 H 18 134/81 100 Room Air 02/06/24 08:30 02/06/24 16:00 02/06/24 14:55 02/06/24 14:55 02/06/24 14:55 02/06/24 14:55 I & O for Last 24 hours: Intake & Output 02/04/24 02/05/24 02/06/24 02/07/24 11:59 11:59 11:59 11:59 Intake Total 1149 / 1149 Output Total 450 / 450 1400 / 1400 Balance 699 / 699 -1400 / -1400 Weight 127 lb Constitutional Constitutional: no acute distress *Routine HEENT Exam Head: Present normocephalic *Routine Respiratory Exam Respiratory: Present normal respiratory effort; Absent accessory muscle use DS: Diagnosis Discharge Diagnosis (1) Heart palpitations: Status: Acute Code(s): R00.2 - Palpitations (2) Vomiting: Status: Acute Code(s): R11.10 - Vomiting, unspecified Qualifiers: Nausea presence: with nausea Vomiting type: unspecified Qualified Code(s): R11.2 - Nausea with vomiting, unspecified (3) Panic attack: Status: Acute Code(s): F41.0 - Panic disorder [episodic paroxysmal anxiety] (4) Near syncope: Status: Acute Code(s): R55 - Syncope and collapse (5) Sinus tachycardia: Status: Acute Code(s): R00.0 - Tachycardia, unspecified (6) Chest pain during : Status: Acute Code(s): O99.891 - Other specified diseases and conditions complicating ; R07.9 - Chest pain, unspecified (7) Anxiety disorder affecting , antepartum: Status: Acute Code(s): O99.340 - Other mental disorders complicating , unspecified trimester; F41.9 - Anxiety disorder, unspecified Meds Home Medications and Allergies Home Medications Medication Instructions Recorded Confirmed Type vitamin no.180-ferrous 1 tab PO DAILY 12/05/23 02/05/24 History fumarate 27 mg-folic acid 1 mg tablet ( Plus Vitamin-Mineral) hydroxyzine HCl 25 mg tablet 25 mg PO TIDP PRN anxiety #60 tabs 01/25/24 02/05/24 Rx buspirone 5 mg tablet 5 mg PO BID #60 tabs 01/29/24 02/05/24 Rx escitalopram oxalate 10 mg tablet 10 mg PO DAILY 02/05/24 02/05/24 History metoprolol succinate 25 mg 37.5 mg PO DAILY 02/05/24 02/05/24 History tablet,extended release 24 hr ondansetron HCl 4 mg tablet 4 mg PO Q8HP PRN nausea and 02/05/24 02/05/24 History vomiting New Prescriptions to Start Prescriptions: Allergies Allergy/AdvReac Type Severity Reaction Status Date / Time cinnamon Allergy Severe Swelling Verified 02/03/24 11:53 of Lip/Tongue/Throat amoxicillin [From Augmentin] Allergy Verified 02/03/24 11:53 clavulanic acid Allergy Verified 02/03/24 11:53 [From Augmentin] Penicillins Allergy Verified 02/03/24 11:53 Discharge Plan Disposition Patient Disposition: Home, Self-Care Condition: Good Discharge Order Discharge Orders: Discharge Order (Routine); Ordered 02/07/24 Ordered By: Luis Clark Follow up Plan Follow up with: Luis Clark MD [Staff Physician] - 02/08/24 Prescriptions/Medication Reconciliation: Continued buspirone 5 mg tablet 5 mg PO BID Qty: 60 2RF Plus Vitamin-Mineral 27 mg iron- 1 mg Tablet 1 tab PO DAILY hydroxyzine HCl 25 mg tablet 25 mg PO TIDP PRN (Reason: anxiety) Qty: 60 1RF escitalopram oxalate 10 mg tablet 10 mg PO DAILY ondansetron HCl 4 mg tablet 4 mg PO Q8HP PRN (Reason: nausea and vomiting) metoprolol succinate 25 mg tablet extended release 24 hr 37.5 mg PO DAILY Problem Reconciliation Problems Reviewed?: Yes Patient Discharge Instructions ACTIVITY: Continue current activity DIET: continue same diet Additional Instructions: CALL OFFICE IN A.M. FOR APPOINTMENT. Stand Alone Forms: [facility] Work Release Patient Instructions: Nausea of (Alternative Therapy), Tachycardia, How to Do Kick Counts, Antepartum Care Providers Primary Care Provider: Molly Louis Admit Provider: Shalonda Mota Attending Provider: Shalonda Mota
[2024-02-07 07:49] LABS: Alanine Aminotransferase 30 U/L (12-78); Albumin Level 3.8 g/dl (3.5-5.0); Albumin/Globulin Ratio 1.2 (1.1-1.8); Alkaline Phosphatase 47 U/L (38-126); Anion Gap 9.4 mEq/L (5-15); Aspartate Amino Transferase 28 U/L (14-36); Bilirubin,Total 1.6 mg/dl (0.2-1.3); Carbon Dioxide 21 mmol/L (22.0-30.0); Chloride 109 mmol/L (98-107); Creatinine Clearance Estimated 156 mL/min (50-200); Estimated Glomerular Filt Rate 150 ml/min (>60); GFR (African American) 182 ML/MIN (>60); Globulin 3.1 g/dL (1.3-3.2); Glucose 89 mg/dl (74-100); Potassium 3.4 mmoL/L (3.5-5.1); Sodium 136 mmol/L (136-145); Total Protein,Serum 6.9 g/dl (6.3-8.2)
[2024-02-07 07:57] LABS: Blood Urea Nitrogen < 2 mg/dl (7-17)
[2024-02-07 08:00] VITALS: PULSE 100
[2024-02-07 08:04] LABS: Basophils % 0.5 % (0.1-2.0); Eosinophils % 0.5 % (0.1-12.0); Hematocrit 35.2 % (37.0-47.0); Hemoglobin 12.1 g/dL (12.2-16.2); Lymphocytes % 23.2 % (10-50); Mean Corpuscular HGB Conc 34.5 g/dL (31.8-35.4); Mean Corpuscular Hemoglobin 30.8 pg (27.0-31.2); Mean Corpuscular Volume 89.5 fl (81-99); Mean Platelet Volume 9.3 fl (7.4-10.4); Monocytes # 0.2 K/mm3 (0.1-1.0); Neutrophils # 3.2 K/mm3 (1.8-7.8); Neutrophils % 71.8 % (37.0-80.0); Platelet Count 145 K/mm3 (142-424); Red Blood Count 3.94 M/mm3 (4.20-5.40); Red Cell Distribution Width 14.6 % (11.5-17.5); White Blood Count 4.5 K/mm3 (4.8-10.8)
[2024-02-07 08:21] VITALS: BP 126/83; PULSE 101; RESP 18; TEMP 36.5; O2SAT 100
== END 2024-02-07 09:00 | disposition home or self-care (01) | DRG 833 ==
LOC: OB 15:12
PROVIDERS: Admitting Provider Obstetrics & Gynecology; PCP Family Medicine; Visit Provider Obstetrics & Gynecology
DX: O26.891 Other specified pregnancy related conditions, first trimester (principal); R00.0 Tachycardia, unspecified; F41.9 Anxiety disorder, unspecified; R07.9 Chest pain, unspecified; R55 Syncope and collapse
CPT/HCPCS: 36415; 80053; 85025; 93005; 96365; 96366; G0378; J2405; J3411; J7120

== ENCOUNTER 2024-02-07 17:27 | Emergency (ER) | payer OTHER, MEDICAID, SELFPAY ==
[2024-02-07 17:27] VITALS: BP 145/94; PULSE 101; RESP 18; TEMP 36.7; O2SAT 99; BMI 21.7
--- NOTE | 2024-02-07 17:31 | ECG_ITS ---
APPROVED REPORT Exam: Resting ECG HR:112 bpm ECG Measurements Heart Rate 112 AXES VT 133 P 70 QRSd 77 QRS 65 QT 304 T -77 QTc [address] DEVIATION AND MODERATE T-WAVE ABNORMALITY, CONSIDER ANTEROLATERAL ISCHEMIA [-0.1+ mV T-WAVE IN V3-V6] ST DEVIATION AND MODERATE T-WAVE ABNORMALITY, CONSIDER INFERIOR ISCHEMIA [-0.1+ mV T-WAVE IN II/aVF] ABNORMAL ECG Electronically signed by : GLORIA SAMUEL, 02/07/2024 23:07:40
--- NOTE | 2024-02-07 17:37 | HMH.EDCP ---
Discharge Plan Disposition Patient Disposition: Xfer Short-Term Hosp Chief Complaint: Arrhythmia/Palpitations Prescriptions Prescriptions: No Action buspirone 5 mg tablet 5 mg PO BID Qty: 60 2RF Plus Vitamin-Mineral 27 mg iron- 1 mg Tablet 1 tab PO DAILY hydroxyzine HCl 25 mg tablet 25 mg PO TIDP PRN (Reason: anxiety) Qty: 60 1RF escitalopram oxalate 10 mg tablet 10 mg PO DAILY ondansetron HCl 4 mg tablet 4 mg PO Q8HP PRN (Reason: nausea and vomiting) metoprolol succinate 25 mg tablet extended release 24 hr 37.5 mg PO DAILY Referrals Follow up/Referrals: Provider,Referral, MD [Primary Care Provider] - See instructions Clinical Impressions Clinical Impression: Syncope, Tachycardia, Hypokalemia, Second trimester Discharge ED Provider: Chaz Blum [facility] General Chief Complaint: Arrhythmia/Palpitations Stated Complaint: Chest Pain Time Seen by Provider: 02/07/24 17:28 History of Present Illness HPI narrative: Patient is a 23-year-old female G5, P3 EGA 14 weeks who presents emergency department for evaluation of chest pain and tachycardia. She has a history of postural orthostatic tachycardia syndrome on metoprolol. Patient has had the symptoms for the last 4 months. They are paroxysmal, intermittent stabbing chest pain, does not radiate. Symptoms are worse with standing and there is associated dizziness. When this happens she knows her heart rate goes up into the 170s on her watch. During this time there is associated numbness and tingling in the arms and feet which resolves she was discharged this morning however due to persistent symptoms she called the OB on-call Dr. Clark who recommended her be evaluated here. She has had some vomiting throughout the course of and is currently getting banana bag infusions. No abdominal pain, no vaginal bleeding. I have evaluated this patient before for the same symptoms, she has gotten CT angio chest with contrast which did not show any acute dissection or pulmonary embolism. She has documented intrauterine without complication in this health system. Echocardiography performed by Dr. Cash normal biventricular dysfunction without significant valvular stenosis or regurgitation. Leading thoughts of cardiology based on culmination of workup thus far is that it is a combination of anxiety and postural orthostatic tachycardia syndrome. Related Data Home Medications Medication Instructions Recorded Confirmed vitamin no.180-ferrous 1 tab PO DAILY 12/05/23 02/05/24 fumarate 27 mg-folic acid 1 mg tablet ( Plus Vitamin-Mineral) escitalopram oxalate 10 mg tablet 10 mg PO DAILY 02/05/24 02/05/24 metoprolol succinate 25 mg 37.5 mg PO DAILY 02/05/24 02/05/24 tablet,extended release 24 hr ondansetron HCl 4 mg tablet 4 mg PO Q8HP PRN nausea and 02/05/24 02/05/24 vomiting Previous Rx's Medication Instructions Recorded hydroxyzine HCl 25 mg tablet 25 mg PO TIDP PRN anxiety #60 tabs 01/25/24 buspirone 5 mg tablet 5 mg PO BID #60 tabs 01/29/24 Allergies Allergy/AdvReac Type Severity Reaction Status Date / Time cinnamon Allergy Severe Swelling Verified 02/03/24 11:53 of Lip/Tongue/Throat amoxicillin [From Augmentin] Allergy Verified 02/03/24 11:53 clavulanic acid Allergy Verified 02/03/24 11:53 [From Augmentin] Penicillins Allergy Verified 02/03/24 11:53 [facility] Disclaimer: The information contained in this section may have been updated after the patient was seen, as this information can be updated by other users. 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 Tobacco dependence syndrome Surgical History Hx of dilation and curettage Hx of tonsillectomy Family History Other Family history of myocardial infarction Family history of stroke Social History (Updated 02/05/24 @ 21:26 by Catie Seugndo RN) Smoking Status: Former smoker tobacco type: e-cigarettes second hand exposure: Yes alcohol intake: current alcohol intake frequency: holidays/special occasions only substance use type: denies use current occupational status: employed Travel in the last 8 weeks: None housing: house ROS Obtained: Yes Systems reviewed as appropriate & no additional complaints except as documented Physical Exam General General appearance: alert and in no apparent distress Head Head exam: atraumatic and normocephalic Eye Eye exam: Present PERRL and EOMI ENT ENT exam: Present mucous membranes moist Neck Neck exam: Present normal inspection Chest Chest inspection: Present normal inspection and symmetric chest wall rise Respiratory Respiratory exam: Present normal lung sounds bilaterally; Absent respiratory distress Cardiovascular Cardiovascular exam: Present normal rhythm and tachycardia Abdominal Exam Abdominal exam: Present soft; Absent tenderness Extremities Exam Extremities exam: Present normal inspection Neurological Exam Neurological exam: Present alert Psychiatric Psychiatric exam: Present normal affect Skin Skin exam: Present warm and dry HEART Score HEART Score HEART Score assessment performed?: Yes History (anamnesis): Moderately suspicious ECG: Non-specific disturbance Age: <45 years Risk factors: No known risk factors Troponin: </= normal limit HEART Score: 2 Critical Care Critical Care Time Critical Care Time: No Medical Decision Making Paresh Inquiry Pt receiving controlled substance: No Vital Signs Vital Signs: 02/07/24 17:27 Temperature 98.1 F Temperature Source Oral Pulse Rate [Left Radial] 101 H Respiratory Rate 18 Blood Pressure [Right Arm] 145/94 H Blood Pressure Mean [Right Arm] 111 02 Sat by Pulse Oximetry 99 Oxygen Delivery Method Room Air Lab Data Labs: Lab Results 02/07/24 17:42: WBC 6.1 D, RBC 4.16 L, Hgb 12.6, Hct 35.5 L, MCV 85.4, MCH 30.2, MCHC 35.4, RDW 14.6, Plt Count 163, MPV 9.2, Neut % (Auto) 66.7, Lymph % (Auto) 29.0, [place] % (Auto) 2.8, Eos % (Auto) 0.8, Baso % (Auto) 0.6, Neut # (Auto) 4.1, Lymph # (Auto) 1.8, [place] # (Auto) 0.2, Eos # (Auto) 0.1, Baso # (Auto) 0.0, Sodium 138, Potassium 3.2 L, Chloride 111 H, Carbon Dioxide 17 L, BUN < 2 L, Creatinine 0.50 L, Glucose 81, Calcium 9.6, Magnesium 1.7, Total Bilirubin 1.5 H, AST 27, ALT 34, Alkaline Phosphatase 52, Troponin I < 0.01, Total Protein 7.6, Albumin 4.2 D, Lipase 115, TSH 1.75, Free T4 1.69 02/07/24 18:30: Urine Color Yellow, Urine Appearance Clear, Urine pH 6.0, Ur Specific [place] 1.010, Urine Protein Negative, Urine Glucose (UA) Negative, Urine Ketones 3+, Urine Blood Negative, Urine Nitrate Negative, Urine Bilirubin Negative, Urine Urobilinogen 0.2, Ur Leukocyte Esterase 2+ A, Urine Opiates Screen Negative, Urine Methadone Screen Negative, Ur Barbituates Screen Negative, Ur Phencyclidine Scrn Negative, Ur Amphetamines Screen Negative, U Benzodiazepines Scrn Negative, Urine Cocaine Screen Negative, U Marijuana (THC) Screen Negative 02/07/24 17:42 02/07/24 17:42 Response Orders (Tests/Meds): ED MEDICATIONS Discontinued Medications Generic Name Dose Route Start Last Admin Trade Name Freq PRN Reason Stop Dose Admin Lactated Ringer's 1,000 mls @ 999 mls/hr 02/07/24 17:35 02/07/24 17:55 Lactated Ringer's 1000 Ml Bag IV 02/07/24 18:35 999 mls/hr .Q1H1M ONE Administration Potassium Chloride 40 meq 02/07/24 18:46 Potassium Chloride 20meq Tab PO 02/07/24 18:47 ONCE ONE ORDERS Category Date Time Status CXR --portable [XR chest portable] Stat Exams 02/07/24 17:55 Taken CBC w/Auto Diff [Complete Blood Count Auto Diff] Stat Lab 02/07/24 17:42 Completed CMP [Comprehensive Metabolic Panel] Stat Lab 02/07/24 17:42 Results Drug Screen,Urine Stat Lab 02/07/24 18:30 Completed Free T4 (Free Thyroxine) Stat Lab 02/07/24 17:42 Completed Lipase Stat Lab 02/07/24 17:42 Completed MG [Magnesium] Stat Lab 02/07/24 17:42 Results TSH [Thyroid Stimulating Hormone] Stat Lab 02/07/24 17:42 Results Trop I [Troponin I] Stat Lab 02/07/24 17:42 Results Troponin I Q3H Lab 02/07/24 20:45 Ordered Troponin I Q3H Lab 02/07/24 23:45 Ordered UA [Urinalysis and Microscopic] Stat Lab 02/07/24 18:30 Results Urine Culture Stat Micro 02/07/24 18:30 Received ECG Data Tracing #1: ECG Narrative: Independently interpreted by me rate is 112, rhythm is regular, axis is normal, nonspecific ST changes, no ST elevation in anatomical contiguous leads, QTc 370. MDM Narrative Medical Decision Narrative: In summary patient is a 23-year-old female past medical history described above who presents emergency department for evaluation of chest pain and tachycardia. Patient is hemodynamically stable nontoxic-appearing upon arrival, afebrile. Sitting at bedside initially heart rate was 130, ultimately throughout examination progressed down to 101. Upon standing next to the bed heart rate goes 170-180 and she becomes severely symptomatic with inability to stand. Differential includes metabolic derangement, POTS, ACS, among others. Patient has had a CTA with contrast of her chest during this symptomatology therefore I feel that aortic dissection and pulmonary embolism are unlikely and repeat ionizing radiation will be limited to just a chest x-ray. Workup reviewed by me, hematologic labs remarkable for mild hypokalemia which will be repleted orally. No BRENDA, no other critical electrolyte abnormality, no significant leukocytosis, no significant anemia. Initial troponin undetectably low. TSH and T4 within normal limits. Urinalysis not consistent with overt infection. Upon repeat evaluation patient had resting heart rate in the low 1 teens, upon standing patient's heart rate went into the high 160s and she had true syncope and was eased to the bed by staff. Given this patient is on safe to transport home. The case was discussed with OB here Dr. 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 [facility] patient for transfer for continued evaluation at this time.
[2024-02-07 17:54] LABS: Chloride 111 mmol/L (98-107); Sodium 138 mmol/L (136-145)
[2024-02-07 17:55] LABS: Potassium 3.2 mmoL/L (3.5-5.1)
[2024-02-07] MEDS: LACTATED RINGERS 1000ML 1,000 ML 999 ML IV (17:55)
--- NOTE | 2024-02-07 17:55 | XR_ITS ---
PROCEDURE INFORMATION: Exam: XR Chest Exam date and time: 02/07/2024 6:03 PM Age: 23 years old Clinical indication: Pain; Angina pectoris; Additional info: Cp tachycardia TECHNIQUE: Imaging protocol: Radiologic exam of the chest. Views: 1 view. COMPARISON: CT ANGIO CHEST 12/07/2023 12:02 AM FINDINGS: Lungs: Unremarkable. No consolidation. Pleural spaces: Unremarkable. No pleural effusion. No pneumothorax. Heart/Mediastinum: Unremarkable. No cardiomegaly. Bones/joints: Unremarkable. IMPRESSION: No acute findings.
[2024-02-07 17:56] LABS: Lipase 115 U/L (23-300)
[2024-02-07 17:57] LABS: Alanine Aminotransferase 34 U/L (12-78); Albumin Level 4.2 g/dl (3.5-5.0); Albumin/Globulin Ratio 1.2 (1.1-1.8); Alkaline Phosphatase 52 U/L (38-126); Anion Gap 13.2 mEq/L (5-15); Aspartate Amino Transferase 27 U/L (14-36); Basophils % 0.6 % (0.1-2.0); Bilirubin,Total 1.5 mg/dl (0.2-1.3); Calcium 9.6 mg/dl (8.4-10.2); Carbon Dioxide 17 mmol/L (22.0-30.0); Creatinine Clearance Estimated 166 mL/min (50-200); Eosinophils # 0.1 K/mm3 (0.0-0.4); Eosinophils % 0.8 % (0.1-12.0); Estimated Glomerular Filt Rate 150 ml/min (>60); GFR (African American) 182 ML/MIN (>60); Globulin 3.4 g/dL (1.3-3.2); Glucose 81 mg/dl (74-100); Hematocrit 35.5 % (37.0-47.0); Hemoglobin 12.6 g/dL (12.2-16.2); Lymphocytes # 1.8 K/mm3 (0.7-4.5); Mean Corpuscular HGB Conc 35.4 g/dL (31.8-35.4); Mean Corpuscular Hemoglobin 30.2 pg (27.0-31.2); Mean Corpuscular Volume 85.4 fl (81-99); Mean Platelet Volume 9.2 fl (7.4-10.4); Monocytes # 0.2 K/mm3 (0.1-1.0); Monocytes % 2.8 % (1.7-9.3); Neutrophils # 4.1 K/mm3 (1.8-7.8); Neutrophils % 66.7 % (37.0-80.0); Platelet Count 163 K/mm3 (142-424); Red Blood Count 4.16 M/mm3 (4.20-5.40); Red Cell Distribution Width 14.6 % (11.5-17.5); Total Protein,Serum 7.6 g/dl (6.3-8.2); White Blood Count 6.1 K/mm3 (4.8-10.8)
[2024-02-07 17:58] LABS: Magnesium 1.7 mg/dl (1.6-2.3)
[2024-02-07 17:59] LABS: Blood Urea Nitrogen < 2 mg/dl (7-17)
[2024-02-07 18:10] LABS: Troponin I < 0.01 ng/ml (0.00-0.034)
--- NOTE | 2024-02-07 18:12 | PC.NURSE ---
Pt asked for a bedside commode due to the fact that she passes out upon trying to walk to the bathroom
[2024-02-07 18:17] LABS: Free T4 (Free Thyroxine) 1.69 ng/dl (0.78-2.19)
[2024-02-07 18:28] LABS: Thyroid Stimulating Hormone 1.75 uIU/mL (0.465-4.68)
[2024-02-07 18:46] LABS: Barbiturates Screen,Urine Negative ng/ml (<200); Microscopic, Urine URINE MICROSCOPIC (MICROSCOPIC)
[2024-02-07 18:47] LABS: Amphetamine/Metha Screen,Urine Negative ng/ml (<1000); Benzodiazepines Screen,Urine Negative ng/ml (<200)
--- NOTE | 2024-02-07 18:47 | PC.NURSE ---
Called [facility] per Dr Blum to speak with them about getting this pt transferred. [facility] advised that they would call us back.
[2024-02-07 18:48] LABS: Cannabinoid Screen,Urine Negative ng/ml (<50)
[2024-02-07 18:49] LABS: Cocaine Screen,Urine Negative ng/ml (<300); Methadone Screen,Urine Negative ng/ml (<300)
[2024-02-07 18:50] LABS: Opiate Screen,Urine Negative ng/ml (<300); Phencyclidine Screen,Urine Negative ng/ml (<25)
--- NOTE | 2024-02-07 18:51 | PC.NURSE ---
heart tones dopplered at 130 bpm
[2024-02-07 18:52] LABS: Appearance,Urine CLEAR (Clear); Bilirubin,Urine Negative (Negative); Blood, Urine Negative (Negative); Color,Urine YELLOW (Yellow); Glucose,Urine (UA) Negative (Negative); Ketones,Urine 3+ (Negative); Leukocyte Esterase,Urine 2+ (Negative); Nitrate,Urine Negative (Negative); Protein,Urine Negative (Negative); Urobilinogen,Urine 0.2 EU/dl (0.2)
[2024-02-07] MEDS: POTASSIUM CHLORIDE 20MEQ TAB 40 MEQ PO (18:54)
--- NOTE | 2024-02-07 18:57 | PC.NURSE ---
called back and is speaking with Dr Blum at [facility] time
[2024-02-07 19:00] VITALS: BP 138/98; PULSE 94; RESP 15; O2SAT 100
[2024-02-07 19:07] LABS: Bacteria,Urine Trace /lpf
[2024-02-07 19:30] VITALS: BP 128/83; PULSE 86; RESP 15; O2SAT 100
[2024-02-07 20:00] VITALS: BP 103/71; PULSE 85; RESP 11; O2SAT 98
--- NOTE | 2024-02-07 20:16 | PC.NURSE ---
patient assisted to [facility]
[2024-02-07 20:30] VITALS: BP 117/77; PULSE 82; RESP 16; O2SAT 99
[2024-02-07 21:09] VITALS: BP 124/85; PULSE 91; RESP 13; TEMP 36.7; O2SAT 99
== END 2024-02-07 21:12 | disposition short-term general hospital (02) ==
PROVIDERS: Emergency Provider Emergency Medicine
DX: O26.892 Other specified pregnancy related conditions, second trimester (principal); R07.9 Chest pain, unspecified; E87.6 Hypokalemia; R55 Syncope and collapse; R00.0 Tachycardia, unspecified; Z3A.14 14 weeks gestation of pregnancy
CPT/HCPCS: 71045; 80050; 80053; 80307; 81001; 83690; 83735; 84439; 84443; 84484; 85025; 87086; 93005; 96360; 99285; J7120

== ENCOUNTER 2024-02-29 10:00 | Outpatient (CLI) | payer MEDICAID, SELFPAY ==
[2024-02-29] MEDS: SODIUM CHLORIDE 0.9% 10ML FLUSH SYRINGE 10 ML IV (10:20)
[2024-02-29] MEDS: MVI, ADULT NO.1 WITH VIT K 10 ML, THIAMINE HCL 100 MG, MAGNESIUM SULFATE 2 GM in LACTAT... 125 ML IV (10:20)
[2024-02-29 10:25] VITALS: BP 110/68; PULSE 91; RESP 18; TEMP 36.8; O2SAT 100
[2024-02-29 11:25] VITALS: BP 113/68; PULSE 90
[2024-02-29 12:30] VITALS: BP 121/71; PULSE 92
== END 2024-02-29 12:35 | disposition home or self-care (01) ==
LOC: INF 10:00
PROVIDERS: Visit Provider Nurse Practitioner Family
DX: G90.A Postural orthostatic tachycardia syndrome [POTS] (principal)
CPT/HCPCS: 96365; 96366; J3411; J7120

== ENCOUNTER 2024-03-04 10:08 | Outpatient (CLI) | payer MEDICAID, SELFPAY ==
[2024-03-04] MEDS: SODIUM CHLORIDE 0.9% 10ML FLUSH SYRINGE 10 ML IV (10:25)
[2024-03-04] MEDS: MVI, ADULT NO.1 WITH VIT K 10 ML, THIAMINE HCL 100 MG, MAGNESIUM SULFATE 2 GM in LACTAT... 1015 ML IV (10:28)
[2024-03-04 10:35] VITALS: BP 90/61; PULSE 74; RESP 17; O2SAT 100
[2024-03-04 11:35] VITALS: BP 108/57; PULSE 77; RESP 16
[2024-03-04 12:35] VITALS: BP 102/59; PULSE 89; RESP 16
== END 2024-03-04 12:40 | disposition home or self-care (01) ==
LOC: INF 10:09
PROVIDERS: PCP Family Medicine; Visit Provider Nurse Practitioner Family
DX: G90.A Postural orthostatic tachycardia syndrome [POTS] (principal)
CPT/HCPCS: 96365; 96366; J3411; J7120

== ENCOUNTER 2024-03-09 11:09 | Outpatient (CLI) | payer MEDICAID, SELFPAY ==
[2024-03-09 11:30] VITALS: BP 107/60; PULSE 74; RESP 18; TEMP 36.2; O2SAT 100
[2024-03-09] MEDS: SODIUM CHLORIDE 0.9% 10ML FLUSH SYRINGE 10 ML IV (11:30)
[2024-03-09] MEDS: MAGNESIUM SULFATE 2 GM, THIAMINE HCL 100 MG, MVI, ADULT NO.1 WITH VIT K 10 ML in LACTAT... IV (11:30)
[2024-03-09 12:30] VITALS: BP 108/63; PULSE 88
[2024-03-09 13:30] VITALS: BP 94/55; PULSE 84
[2024-03-09 13:45] VITALS: BP 100/56; PULSE 87
== END 2024-03-09 13:50 | disposition home or self-care (01) ==
LOC: INF 11:11
PROVIDERS: PCP Family Medicine; Visit Provider Internal Medicine Cardiovascular Disease
DX: G90.A Postural orthostatic tachycardia syndrome [POTS] (principal)
CPT/HCPCS: 96365; 96366; J3411; J7120

== ENCOUNTER 2024-03-11 11:42 | Emergency (ER) | payer MEDICAID, SELFPAY ==
[2024-03-11] VITALS (12 sets, daily range): BP systolic 97–121; BP diastolic 61–84; PULSE 69–84; RESP 13–18; TEMP 36.6; O2SAT 98–100; BMI 20.7
[2024-03-11 12:09] LABS: Basophils % 0.7 % (0.1-2.0); Eosinophils % 0.7 % (0.1-12.0); Hematocrit 40.3 % (37.0-47.0); Hemoglobin 13.3 g/dL (12.2-16.2); Lymphocytes # 1.2 K/mm3 (0.7-4.5); Lymphocytes % 21.1 % (10-50); Mean Corpuscular HGB Conc 32.9 g/dL (31.8-35.4); Mean Corpuscular Hemoglobin 30.8 pg (27.0-31.2); Mean Corpuscular Volume 93.5 fl (81-99); Mean Platelet Volume 9.3 fl (7.4-10.4); Monocytes # 0.2 K/mm3 (0.1-1.0); Monocytes % 2.6 % (1.7-9.3); Neutrophils # 4.4 K/mm3 (1.8-7.8); Neutrophils % 74.8 % (37.0-80.0); Platelet Count 184 K/mm3 (142-424); Red Blood Count 4.31 M/mm3 (4.20-5.40); Red Cell Distribution Width 15.2 % (11.5-17.5); White Blood Count 5.8 K/mm3 (4.8-10.8)
[2024-03-11] MEDS: LACTATED RINGERS 1000ML 1,000 ML 999 ML IV (12:16)
[2024-03-11] MEDS: ONDANSETRON 4MG/2ML VIAL 4 MG IV (12:16)
[2024-03-11 12:21] LABS: Albumin Level 5.1 g/dl (3.5-5.0); Chloride 108 mmol/L (98-107)
[2024-03-11 12:22] LABS: Potassium 4.5 mmoL/L (3.5-5.1); Sodium 133 mmol/L (136-145)
[2024-03-11 12:24] LABS: Alanine Aminotransferase 24 U/L (12-78); Anion Gap 18.5 mEq/L (5-15); Aspartate Amino Transferase 40 U/L (14-36); Blood Urea Nitrogen 8 mg/dl (7-17); Carbon Dioxide 11 mmol/L (22.0-30.0); Creatinine Clearance Estimated 106 mL/min (50-200); Estimated Glomerular Filt Rate 102 ml/min (>60); GFR (African American) 123 ML/MIN (>60)
[2024-03-11 12:25] LABS: Albumin/Globulin Ratio 1.3 (1.1-1.8); Alkaline Phosphatase 45 U/L (38-126); Bilirubin,Total 4.1 mg/dl (0.2-1.3); Calcium 9.8 mg/dl (8.4-10.2); Globulin 3.8 g/dL (1.3-3.2); Glucose 58 mg/dl (74-100); Total Protein,Serum 8.9 g/dl (6.3-8.2)
--- NOTE | 2024-03-11 12:33 | HMH.EDGENADL ---
Discharge Plan Disposition Patient Disposition: Xfer Short-Term Hosp Condition: Good Prescriptions Prescriptions: New ondansetron 4 mg tablet,disintegrating 4 mg PO Q6H PRN (Reason: nausea and vomiting) Qty: 10 2RF No Action buspirone 5 mg tablet 5 mg PO BID Qty: 60 2RF Plus Vitamin-Mineral 27 mg iron- 1 mg Tablet 1 tab PO DAILY hydroxyzine HCl 25 mg tablet 25 mg PO TIDP PRN (Reason: anxiety) Qty: 60 1RF escitalopram oxalate 10 mg tablet 10 mg PO DAILY ondansetron HCl 4 mg tablet 4 mg PO Q8HP PRN (Reason: nausea and vomiting) propranolol 10 mg Tablet 10 mg PO BID Referrals Follow up/Referrals: Provider,Referral, MD [Primary Care Provider] - See instructions Clinical Impressions Clinical Impression: Vomiting and diarrhea, Indirect hyperbilirubinemia Instructions Patient Instructions: DI for Diarrhea and Traveler's Diarrhea -- Adult, DI for Nausea -- Adult Print Language Print Language: Yoruba Discharge ED Provider: Juni Leonardo General Adult HPI <Juni Leonardo MD - Last Filed: 03/11/24 15:53> General Chief complaint: Nausea/Vomiting/Diarrhea Stated complaint: 19 weeks antepartum, vomiting, diarrhea Time Seen by Provider: 03/11/24 11:57 Mode of Arrival: Wheelchair Source of Information: Patient Limitations: No Limitations Description of Symptoms (Recalled from ER Triage Doc. by RN): pt presents to ED with c/o n/v/d. pt reports on thursday she ate chicken from cafeteria and pt reports she began having symptom that night. pt 19 weeks . pt follows with high risk obgyn. History of Present Illness HPI narrative: Please note that above description of symptoms, in this electronic medical record under categorization of recalled from ER triage doctor by RN are reflective of an initial nursing assessment, however, is not reflective of my full history and physical exam that was personally taken and clarified. Consequentially, this preceding description of symptoms, which may include the patient's categorized chief complaint in the EMR, do not reflect my personal clinical impression, and the ultimate description of history of present illness and patient stated complaints should be deferred to this section of the note. Unless stated otherwise or congruent with this section of the note, additional signs, symptoms, or incongruence should be interpreted as inaccurate with my clinical impression. Related Data Home Medications ?Medication ?Instructions ?Recorded ?Confirmed vitamin no.180-ferrous 1 tab PO DAILY 12/05/23 03/04/24 fumarate 27 mg-folic acid 1 mg tablet ( Plus Vitamin-Mineral) escitalopram oxalate 10 mg tablet 10 mg PO DAILY 02/05/24 03/04/24 ondansetron HCl 4 mg tablet 4 mg PO Q8HP PRN nausea and 02/05/24 03/04/24 vomiting propranolol 10 mg tablet 10 mg PO BID 03/04/24 03/04/24 Previous Rx's ?Medication ?Instructions ?Recorded hydroxyzine HCl 25 mg tablet 25 mg PO TIDP PRN anxiety #60 tabs 01/25/24 buspirone 5 mg tablet 5 mg PO BID #60 tabs 01/29/24 ondansetron 4 mg disintegrating 4 mg PO Q6H PRN nausea and 03/11/24 tablet vomiting #10 tabs Allergies Allergy/AdvReac Type Severity Reaction Status Date / Time cinnamon Allergy Severe Swelling Verified 02/03/24 11:53 of Lip/Tongue/Throat amoxicillin [From Augmentin] Allergy Verified 02/03/24 11:53 clavulanic acid Allergy Verified 02/03/24 11:53 [From Augmentin] Penicillins Allergy Verified 02/03/24 11:53 [facility] <Juni Leonardo MD - Last Filed: 03/11/24 15:53> [facility], [facility] Disclaimer: The information contained in this section may have been updated after the patient was seen, as this information can be updated by other users. Medical History (Updated 03/11/24 @ 17:38 by Luke Vides MD) POTS (postural orthostatic tachycardia syndrome) Anxiety disorder affecting , antepartum Norovirus Enteritis due to Norovirus Elevated brain natriuretic peptide (BNP) level Gilbert's disease of unknown anatomic location Diarrhea Chest pain Herpes simplex of female genitalia Tobacco dependence syndrome Surgical History Hx of dilation and curettage Hx of tonsillectomy Family History Other Family history of myocardial infarction Family history of stroke Social History Smoking Status: Never smoker second hand exposure: Yes alcohol intake: current alcohol intake frequency: holidays/special occasions only substance use type: denies use current occupational status: employed Travel in the last 8 weeks: None housing: house <Juni Leonardo MD - Last Filed: 03/11/24 15:53> ROS Obtained: Yes All systems reviewed & no additional complaints except as documented Physical Exam <Juni Leonardo MD - Last Filed: 03/11/24 15:53> General General appearance: alert Head Head exam: atraumatic and normocephalic Eye Eye exam: Present normal appearance, PERRL and EOMI Neck Neck exam: Present normal inspection, full ROM and trachea midline Respiratory Respiratory exam: Absent respiratory distress, wheezes, stridor, accessory muscle use or prolonged expiratory phase Cardiovascular Cardiovascular exam: Present regular rate, normal rhythm and other (Pulses equal symmetric in upper and lower extremities) Abdominal Exam Abdominal exam: Present soft; Absent distention, tenderness or pulsatile mass Extremities Exam Extremities exam: Absent edema Neurological Exam Neurological exam: Present alert, oriented X3 and CN II-XII intact; Absent motor sensory deficit Skin Skin exam: Present warm, dry and pallor; Absent diaphoresis or erythema Medical Decision Making <Juni Leonardo MD - Last Filed: 03/11/24 15:53> Medical Records Medical records reviewed: Yes I reviewed the patient's medical records. Paresh Inquiry Pt receiving controlled substance: No Parehs was queried for this patient: No Vital Signs: 03/11/24 11:43 03/11/24 12:30 03/11/24 13:00 Temperature 97.8 F Temperature Source Oral Pulse Rate 84 75 Pulse Rate [Left Radial] 81 Respiratory Rate 13 Blood Pressure 112/76 97/61 L Blood Pressure [Right Arm] 114/65 Blood Pressure Mean [Right Arm] 81 Blood Pressure Source 02 Sat by Pulse Oximetry 99 100 100 Oxygen Delivery Method Room Air 03/11/24 13:30 03/11/24 14:00 03/11/24 14:30 Temperature Temperature Source Pulse Rate 75 77 69 Pulse Rate [Left Radial] Respiratory Rate Blood Pressure 108/70 L 98/73 L 118/73 Blood Pressure [Right Arm] Blood Pressure Mean [Right Arm] Blood Pressure Source 02 Sat by Pulse Oximetry 99 100 100 Oxygen Delivery Method 03/11/24 14:35 Temperature 98 F Temperature Source Oral Pulse Rate 71 Pulse Rate [Left Radial] Respiratory Rate 18 Blood Pressure 118/73 Blood Pressure [Right Arm] Blood Pressure Mean [Right Arm] Blood Pressure Source Automatic Cuff 02 Sat by Pulse Oximetry Oxygen Delivery Method Room Air Lab Data Lab Results 03/11/24 12:00: WBC 5.8, RBC 4.31, Hgb 13.3, Hct 40.3, MCV 93.5, MCH 30.8, MCHC 32.9, RDW 15.2, Plt Count 184, MPV 9.3, Neut % (Auto) 74.8, Lymph % (Auto) 21.1, [place] % (Auto) 2.6, Eos % (Auto) 0.7, Baso % (Auto) 0.7, Neut # (Auto) 4.4, Lymph # (Auto) 1.2, [place] # (Auto) 0.2, Eos # (Auto) 0.0, Baso # (Auto) 0.0, Sodium 133 L, Potassium 4.5, Chloride 108 H, Carbon Dioxide 11 L, Anion Gap 18.5 H, BUN 8, Creatinine 0.70, Estimated Creat Clear 106, Estimated GFR 102, Est GFR ( Amer) 123, Glucose 58 L, Calcium 9.8, Total Bilirubin 4.1 H, Direct Bilirubin 0.7 H, AST 40 H, ALT 24, Alkaline Phosphatase 45, Total Protein 8.9 H, Albumin 5.1 H, Globulin 3.8 H, Albumin/Globulin Ratio 1.3 03/11/24 13:33: Urine Color Yellow, Urine Appearance Clear, Urine pH 6.0, Ur Specific [place] 1.025, Urine Protein Negative, Urine Glucose (UA) Negative, Urine Ketones 3+, Urine Blood Negative, Urine Nitrate Negative, Urine Bilirubin Negative, Urine Urobilinogen 0.2, Ur Leukocyte Esterase 1+ A, Urine RBC None, Urine WBC Occasional, Ur Squamous Epith Cells 3-5, Urine Bacteria Trace 03/11/24 12:00 03/11/24 12:00 Orders (Tests/Meds): ED MEDICATIONS Discontinued Medications Generic Name Dose Route Start Last Admin Trade Name Freq PRN Reason Stop Dose Admin Lactated Ringer's 1,000 mls @ 999 mls/hr 03/11/24 12:01 03/11/24 12:16 Lactated Ringer's 1000 Ml Bag IV 03/11/24 13:01 999 mls/hr .Q1H1M ONE Administration Ondansetron HCl 4 mg 03/11/24 12:01 03/11/24 12:16 Ondansetron 4mg/2ml Vial IV 03/11/24 12:02 4 mg ONCE ONE Administration ORDERS Category Date Time Status US Right Upper Quad [US abdomen limited] Stat Exams 03/11/24 15:47 Completed Bilirubin,Direct Stat Lab 03/11/24 12:00 Completed CBC w/Auto Diff [Complete Blood Count Auto Diff] Stat Lab 03/11/24 12:00 Completed CMP [Comprehensive Metabolic Panel] Stat Lab 03/11/24 12:00 Completed Diarrhea 6-11 Panel, Cdiff PCR Stat Lab 03/11/24 12:01 Ordered UA [Urinalysis and Microscopic] Stat Lab 03/11/24 13:33 Completed Urine Culture Stat Micro 03/11/24 13:33 Received Medical Decision Narrative: 23-year-old female 19 weeks with high risk , POTS syndrome presenting with weakness, vomiting, diarrhea. Patient states that this is related to food she had from the cafeteria just couple days ago, has a relative that ate the same food, having similar symptoms, but getting better. Patient states that she is feeling weak, nauseated, having diarrhea. No blood in her vomit or stool. No fevers or chills, urinary symptoms, gushes of fluid, vaginal fluid, bleeding, discharge, pain. Intermittently still feeling baby move. Has not been able to tolerate p.o. intake for about 24 to 48 hours. States that she has had large weight loss this as well. History was obtained via conversation with patient. On arrival, patient hemodynamically stable, alert, oriented x4, appropriate, GCS 15, moving all extremities spontaneously, pupils equal and reactive to light. Full physical exam performed and significant for tired, pale appearing female in no acute distress. Dry mucous membranes. Cardiopulmonary exam within normal is, nontachycardic, normotensive. Patient's abdomen soft, nontender, nondistended. Overall unremarkable physical exam otherwise. Differential includes dehydration, gastritis, enteritis, gastroenteritis, IBS, among others. Patient placed on continuous cardiac monitoring and continuous pulse ox with initial blood pressure 114/65, heart rate 81, saturation 99% on room air. Independent rotation of workup demonstrates nonactionable CBC or chemistry. Mildly elevated anion gap, this is likely due to mild dehydration. Kidney function normal. Bilirubin slightly elevated at 4.1, AST mildly elevated as well, likely sequela of Gilbert syndrome. Right upper quadrant ultrasound was ordered out of abundance of caution given high risk . Prior to this, care handed off to oncoming physician. [employer] Equipment Mechanic disclaimer Much of this encounter note is an electronic certified teacher assistant spoken language to printed text. Electronic certified teacher assistant of the spoken language may permit errors. Although I have reviewed the note, some errors may still exist. <Luke Vides MD - Last Filed: 03/11/24 17:38> Vital Signs: 03/11/24 11:43 03/11/24 12:30 03/11/24 13:00 Temperature 97.8 F Temperature Source Oral Pulse Rate 84 75 Pulse Rate [Left Radial] 81 Respiratory Rate 13 Blood Pressure 112/76 97/61 L Blood Pressure [Right Arm] 114/65 Blood Pressure Mean [Right Arm] 81 Blood Pressure Source 02 Sat by Pulse Oximetry 99 100 100 Oxygen Delivery Method Room Air 03/11/24 13:30 03/11/24 14:00 03/11/24 14:30 Temperature Temperature Source Pulse Rate 75 77 69 Pulse Rate [Left Radial] Respiratory Rate Blood Pressure 108/70 L 98/73 L 118/73 Blood Pressure [Right Arm] Blood Pressure Mean [Right Arm] Blood Pressure Source 02 Sat by Pulse Oximetry 99 100 100 Oxygen Delivery Method 03/11/24 14:35 Temperature 98 F Temperature Source Oral Pulse Rate 71 Pulse Rate [Left Radial] Respiratory Rate 18 Blood Pressure 118/73 Blood Pressure [Right Arm] Blood Pressure Mean [Right Arm] Blood Pressure Source Automatic Cuff 02 Sat by Pulse Oximetry Oxygen Delivery Method Room Air Lab Data Lab Results 03/11/24 12:00: WBC 5.8, RBC 4.31, Hgb 13.3, Hct 40.3, MCV 93.5, MCH 30.8, MCHC 32.9, RDW 15.2, Plt Count 184, MPV 9.3, Neut % (Auto) 74.8, Lymph % (Auto) 21.1, [place] % (Auto) 2.6, Eos % (Auto) 0.7, Baso % (Auto) 0.7, Neut # (Auto) 4.4, Lymph # (Auto) 1.2, [place] # (Auto) 0.2, Eos # (Auto) 0.0, Baso # (Auto) 0.0, Sodium 133 L, Potassium 4.5, Chloride 108 H, Carbon Dioxide 11 L, Anion Gap 18.5 H, BUN 8, Creatinine 0.70, Estimated Creat Clear 106, Estimated GFR 102, Est GFR ( Amer) 123, Glucose 58 L, Calcium 9.8, Total Bilirubin 4.1 H, Direct Bilirubin 0.7 H, AST 40 H, ALT 24, Alkaline Phosphatase 45, Total Protein 8.9 H, Albumin 5.1 H, Globulin 3.8 H, Albumin/Globulin Ratio 1.3 03/11/24 13:33: Urine Color Yellow, Urine Appearance Clear, Urine pH 6.0, Ur Specific [place] 1.025, Urine Protein Negative, Urine Glucose (UA) Negative, Urine Ketones 3+, Urine Blood Negative, Urine Nitrate Negative, Urine Bilirubin Negative, Urine Urobilinogen 0.2, Ur Leukocyte Esterase 1+ A, Urine RBC None, Urine WBC Occasional, Ur Squamous Epith Cells 3-5, Urine Bacteria Trace Orders (Tests/Meds): ED MEDICATIONS Discontinued Medications Generic Name Dose Route Start Last Admin Trade Name Freq PRN Reason Stop Dose Admin Lactated Ringer's 1,000 mls @ 999 mls/hr 03/11/24 12:01 03/11/24 12:16 Lactated Ringer's 1000 Ml Bag IV 03/11/24 13:01 999 mls/hr .Q1H1M ONE Administration Ondansetron HCl 4 mg 03/11/24 12:01 03/11/24 12:16 Ondansetron 4mg/2ml Vial IV 03/11/24 12:02 4 mg ONCE ONE Administration ORDERS Category Date Time Status US Right Upper Quad [US abdomen limited] Stat Exams 03/11/24 15:47 Completed Bilirubin,Direct Stat Lab 03/11/24 12:00 Completed CBC w/Auto Diff [Complete Blood Count Auto Diff] Stat Lab 03/11/24 12:00 Completed CMP [Comprehensive Metabolic Panel] Stat Lab 03/11/24 12:00 Completed Diarrhea 6-11 Panel, Cdiff PCR Stat Lab 03/11/24 12:01 Ordered UA [Urinalysis and Microscopic] Stat Lab 03/11/24 13:33 Completed Urine Culture Stat Micro 03/11/24 13:33 Received Medical Decision Narrative: 23-year-old female 19 weeks with high risk , POTS syndrome presenting with weakness, vomiting, diarrhea. Patient states that this is related to food she had from the cafeteria just couple days ago, has a relative that ate the same food, having similar symptoms, but getting better. Patient states that she is feeling weak, nauseated, having diarrhea. No blood in her vomit or stool. No fevers or chills, urinary symptoms, gushes of fluid, vaginal fluid, bleeding, discharge, pain. Intermittently still feeling baby move. Has not been able to tolerate p.o. intake for about 24 to 48 hours. States that she has had large weight loss this as well. History was obtained via conversation with patient. On arrival, patient hemodynamically stable, alert, oriented x4, appropriate, GCS 15, moving all extremities spontaneously, pupils equal and reactive to light. Full physical exam performed and significant for tired, pale appearing female in no acute distress. Dry mucous membranes. Cardiopulmonary exam within normal is, nontachycardic, normotensive. Patient's abdomen soft, nontender, nondistended. Overall unremarkable physical exam otherwise. Differential includes dehydration, gastritis, enteritis, gastroenteritis, IBS, among others. Patient placed on continuous cardiac monitoring and continuous pulse ox with initial blood pressure 114/65, heart rate 81, saturation 99% on room air. Independent rotation of workup demonstrates nonactionable CBC or chemistry. Mildly elevated anion gap, this is likely due to mild dehydration. Kidney function normal. Bilirubin slightly elevated at 4.1, AST mildly elevated as well, likely sequela of Gilbert syndrome. Right upper quadrant ultrasound was ordered out of abundance of caution given high risk . Prior to this, care handed off to oncoming physician. [employer] Equipment Mechanic disclaimer Much of this encounter note is an electronic certified teacher assistant spoken language to printed text. Electronic certified teacher assistant of the spoken language may permit errors. Although I have reviewed the note, some errors may still exist. Vides: Upon my assumption of care patient is stable and resting comfortably. Right upper quadrant ultrasound pending. I discussed this case with Dr. Pineda at [facility] including patient's elevated bili and symptoms that brought her to the ER. She stated if right upper quadrant ultrasound is negative, bili studies are consistent with Gilbert syndrome, and patient is able to tolerate oral intake that she would be appropriate to follow-up outpatient with [facility] next week and they would help coordinate GI follow-up. Right upper quadrant ultrasound was negative for acute abnormality. Patient has an indirect hyperbilirubinemia which is consistent with Gilbert syndrome. No other acute intervention is necessary at this time. She attempted oral intake and immediately had nausea and abdominal pain. She has not had vomiting. Given her recurrent symptoms, I called [facility] again. We again discussed the case and given she has intractable symptoms, Dr. Pineda accepted the patient for transfer to labor and delivery triage for evaluation. Patient received another dose of IV Zofran in the ER. Family is unable to take the patient there themselves so she will require transport. She is appropriate for S transfer at this time. Patient was transferred in stable condition. Critical Care <Juni Leonardo MD - Last Filed: 03/11/24 15:53> Critical Care Time Critical Care Time: No
[2024-03-11 13:37] LABS: Microscopic, Urine URINE MICROSCOPIC (MICROSCOPIC)
[2024-03-11 13:42] LABS: Appearance,Urine CLEAR (Clear); Bilirubin,Urine Negative (Negative); Blood, Urine Negative (Negative); Color,Urine YELLOW (Yellow); Glucose,Urine (UA) Negative (Negative); Ketones,Urine 3+ (Negative); Leukocyte Esterase,Urine 1+ (Negative); Nitrate,Urine Negative (Negative); Protein,Urine Negative (Negative); Specific Gravity, Urine 1.025 (1.005-1.030); Urobilinogen,Urine 0.2 EU/dl (0.2)
[2024-03-11 14:09] LABS: Bacteria,Urine Trace /lpf; WBC,Urine Occasional #/hpf (0-3)
--- NOTE | 2024-03-11 14:31 | PC.NURSE ---
Dr. Leonardo at bedside
--- NOTE | 2024-03-11 15:43 | PC.NURSE ---
calling [facility] for possible transfer at this time.
--- NOTE | 2024-03-11 15:47 | US_ITS ---
PROCEDURE INFORMATION: Exam: US Abdomen, Limited; Right Upper Quadrant Exam date and time: 03/11/2024 3:50 PM Age: 23 years old Clinical indication: Abnormal findings; Abnormal lab test; Other: Elevated bilirubin; TECHNIQUE: Imaging protocol: Real time ultrasound of the abdomen with image documentation. Limited exam focused on the right upper quadrant. COMPARISON: US OB TRANSVAGINAL 01/22/2024 4:29 PM FINDINGS: Liver: Normal. No masses. Gallbladder: Surgically absent. Biliary ducts: Normal. No stones. No dilation. CBD measures 3 mm. Pancreas: Visualized pancreas is unremarkable. Pancreas not well seen. Right kidney: Normal. No mass. No hydronephrosis. Right kidney measures 10 cm. IMPRESSION: No acute findings.
--- NOTE | 2024-03-11 16:00 | PC.NURSE ---
ON PHONE WITH
--- NOTE | 2024-03-11 16:01 | PC.NURSE ---
pt to u/s via wheelchair
--- NOTE | 2024-03-11 16:44 | PC.NURSE ---
pt took her home dose of propanolol [address] Pierce permission
--- NOTE | 2024-03-11 16:46 | PC.NURSE ---
I updated the pt on plan of care. I took her a drink and snack for her PO challenge.
[2024-03-11 16:52] LABS: Bilirubin,Direct 0.7 mg/dl (0.0-0.4)
--- NOTE | 2024-03-11 17:17 | PC.NURSE ---
Pt's spouse came to nurse's station stating that pt was having increased abd pain with attempting to tolerate PO. No vomiting yet. Dr Vides notified of this.
--- NOTE | 2024-03-11 17:20 | PC.NURSE ---
calling [facility] at this time.
--- NOTE | 2024-03-11 17:24 | PC.NURSE ---
o/p with at this time.
--- NOTE | 2024-03-11 17:33 | PC.NURSE ---
patient accepted to L&D ER by Dr. Gurjit Duron.
--- NOTE | 2024-03-11 17:57 | PC.NURSE ---
FHT 148/151. Pt does report fetus has been moving several times today.
--- NOTE | 2024-03-11 18:17 | PC.NURSE ---
called [facility] at this time.
== END 2024-03-11 19:13 | disposition short-term general hospital (02) ==
PROVIDERS: Emergency Provider Emergency Medicine
DX: O26.892 Other specified pregnancy related conditions, second trimester (principal); E80.6 Other disorders of bilirubin metabolism; E80.4 Gilbert syndrome; E86.0 Dehydration; R19.7 Diarrhea, unspecified; R11.2 Nausea with vomiting, unspecified; R53.1 Weakness; E87.1 Hypo-osmolality and hyponatremia; Z3A.19 19 weeks gestation of pregnancy
CPT/HCPCS: 76705; 80053; 81001; 82248; 85025; 87086; 96361; 96374; 99285; J2405; J7120

== ENCOUNTER 2024-04-27 11:35 | Outpatient (CLI) | payer MEDICAID, SELFPAY ==
[2024-04-27 12:08] VITALS: BP 119/63; PULSE 86; RESP 18; O2SAT 100
[2024-04-27] MEDS: LACTATED RINGERS 1000ML 1,000 ML 500 ML IV (12:10)
[2024-04-27 13:10] VITALS: BP 114/64; PULSE 85; RESP 18; O2SAT 100
--- NOTE | 2024-04-27 14:00 | PC.NURSE ---
Pts spouse rang out that pt did not feel well. Upon evaluation by myself and Derrick Monique RN. Pt stated that she felt dizzy and that her heart was racing. Pt stated she felt as if she had bricks sitting on her chest. Derrick Monique attempted multiple times to contact her hospital nursing assistant at that follows her for POTS syndrome for further orders but no answer. pt continued to be symptomatic and complaining of blurred vision and that she was going to pass out . myself and Derrick Monique advised that she be evaluated in our ED department for further workup. Pt agreed. Pt was taken down to our ED department via wheelchair.
[2024-04-27 15:00] VITALS: BP 124/68; PULSE 88; RESP 18; O2SAT 100
== END 2024-04-27 14:45 | disposition home or self-care (01) ==
LOC: INF 11:36
DX: G90.A Postural orthostatic tachycardia syndrome [POTS] (principal)
CPT/HCPCS: 96360; 96361; J7120

== ENCOUNTER 2024-04-27 14:46 | Emergency (ER) | payer MEDICAID, SELFPAY ==
[2024-04-27] VITALS (7 sets, daily range): BP systolic 110–129; BP diastolic 71–86; PULSE 83–90; RESP 13–16; TEMP 36.7; O2SAT 98–100; BMI 20.1
--- NOTE | 2024-04-27 15:16 | PC.NURSE ---
DR RAY AT BEDSIDE
--- NOTE | 2024-04-27 15:25 | HMH.EDGENADL ---
Discharge Plan Disposition Patient Disposition: Home, Self-Care Prescriptions Prescriptions: No Action buspirone 5 mg tablet 5 mg PO BID Qty: 60 2RF Plus Vitamin-Mineral 27 mg iron- 1 mg Tablet 1 tab PO DAILY hydroxyzine HCl 25 mg tablet 25 mg PO TIDP PRN (Reason: anxiety) Qty: 60 1RF escitalopram oxalate 10 mg tablet 10 mg PO DAILY ondansetron HCl 4 mg tablet 4 mg PO Q8HP PRN (Reason: nausea and vomiting) propranolol 10 mg Tablet 10 mg PO BID ondansetron 4 mg tablet,disintegrating 4 mg PO Q6H PRN (Reason: nausea and vomiting) Qty: 10 2RF Referrals Follow up/Referrals: Molly Louis MD [Primary Care Provider] - See instructions Activity Restrictions/Add. Instructions Additional Instructions/Restrictions: Call your family doctor to establish care for this visit to the emergency department and schedule follow-up within 48 hours to ensure improvement. If you have any worsening of your condition or any other concerning signs or symptoms, return to the emergency department or your primary care doctor for further evaluation. Continue following up with OB as scheduled. Clinical Impressions Clinical Impression: Syncope, Weakness Print Language Print Language: [place] Discharge ED Provider: Juni Leonardo General Adult HPI General Chief complaint: Weakness Stated complaint: fainting, chest tightness, POTS Time Seen by Provider: 04/27/24 14:53 Mode of Arrival: Wheelchair Source of Information: Patient Limitations: No Limitations Description of Symptoms (Recalled from ER Triage Doc. by RN): PT BROUGHT FROM OUTPT INFUSION. PT RECEIVING LR BOLUS. PT SUDDENLY FELT DIZZY, ROOM SPINNING AND IMPENDING DOOM. HAD COMPLETED LR BOLUS. OUTPT STAFF HAS CONTACTED PT'S HOSPICE COORDINATOR, PT REPORTS FEELING WEAK AT THIS TIME. PT ABLE TO TOLERATED PO INTAKE, NO RECENT ILLNESS. History of Present Illness HPI narrative: Please note that above description of symptoms, in this electronic medical record under categorization of recalled from ER triage doctor by RN are reflective of an initial nursing assessment, however, is not reflective of my full history and physical exam that was personally taken and clarified. Consequentially, this preceding description of symptoms, which may include the patient's categorized chief complaint in the EMR, do not reflect my personal clinical impression, and the ultimate description of history of present illness and patient stated complaints should be deferred to this section of the note. Unless stated otherwise or congruent with this section of the note, additional signs, symptoms, or incongruence should be interpreted as inaccurate with my clinical impression. Related Data Home Medications ?Medication ?Instructions ?Recorded ?Confirmed vitamin no.180-ferrous 1 tab PO DAILY 12/05/23 03/04/24 fumarate 27 mg-folic acid 1 mg tablet ( Plus Vitamin-Mineral) escitalopram oxalate 10 mg tablet 10 mg PO DAILY 02/05/24 03/04/24 ondansetron HCl 4 mg tablet 4 mg PO Q8HP PRN nausea and 02/05/24 03/04/24 vomiting propranolol 10 mg tablet 10 mg PO BID 03/04/24 03/04/24 Previous Rx's ?Medication ?Instructions ?Recorded hydroxyzine HCl 25 mg tablet 25 mg PO TIDP PRN anxiety #60 tabs 01/25/24 buspirone 5 mg tablet 5 mg PO BID #60 tabs 01/29/24 ondansetron 4 mg disintegrating 4 mg PO Q6H PRN nausea and 03/11/24 tablet vomiting #10 tabs Allergies Allergy/AdvReac Type Severity Reaction Status Date / Time cinnamon Allergy Severe Swelling Verified 02/03/24 11:53 of Lip/Tongue/Throat amoxicillin [From Augmentin] Allergy Verified 02/03/24 11:53 clavulanic acid Allergy Verified 02/03/24 11:53 [From Augmentin] Penicillins Allergy Verified 02/03/24 11:53 PFSH PFS Disclaimer: The information contained in this section may have been updated after the patient was seen, as this information can be updated by other users. Medical History (Updated 04/27/24 @ 16:42 by Juni Leonardo MD) POTS (postural orthostatic tachycardia syndrome) Anxiety disorder affecting , antepartum Norovirus Enteritis due to Norovirus Elevated brain natriuretic peptide (BNP) level Gilbert's disease of unknown anatomic location Diarrhea Chest pain Herpes simplex of female genitalia Tobacco dependence syndrome Surgical History Hx of dilation and curettage Hx of tonsillectomy Family History Other Family history of myocardial infarction Family history of stroke Social History Smoking Status: Never smoker second hand exposure: Yes alcohol intake: current alcohol intake frequency: holidays/special occasions only substance use type: denies use current occupational status: employed Travel in the last 8 weeks: None housing: house Other Medical History Have you received the Flu Vaccine for this season: No Have you received the Pneumonia Vaccine: No ROS Obtained: Yes All systems reviewed & no additional complaints except as documented Physical Exam General General appearance: alert and other (color looks better than typical, clinically well appearing) Head Head exam: atraumatic and normocephalic Eye Eye exam: Present normal appearance, PERRL and EOMI Neck Neck exam: Present normal inspection, full ROM and trachea midline Respiratory Respiratory exam: Present normal lung sounds bilaterally; Absent respiratory distress, wheezes, stridor, accessory muscle use or prolonged expiratory phase Cardiovascular Cardiovascular exam: Present regular rate, normal rhythm and other (Pulses equal symmetric in upper and lower extremities) Abdominal Exam Abdominal exam: Present soft; Absent distention, tenderness or pulsatile mass Extremities Exam Extremities exam: Absent edema Neurological Exam Neurological exam: Present alert, oriented X3 and CN II-XII intact; Absent motor sensory deficit Skin Skin exam: Present warm, dry and normal color; Absent diaphoresis or erythema Medical Decision Making Medical Records Medical records reviewed: Yes I reviewed the patient's medical records. Screening: Per USPSTF and CDC recommendations, given the prevalence of disease in our region, it is our hospital?s policy to screen for HIV and viral Hepatitis for all patients aged 18 and over and those with ongoing risk factors. Paresh Inquiry Pt receiving controlled substance: No Paresh was queried for this patient: No Vital Signs: 04/27/24 14:50 04/27/24 14:54 04/27/24 15:00 Temperature 98.0 F Temperature Source Oral Pulse Rate 83 88 Pulse Rate [Apical] 89 Respiratory Rate 16 13 Blood Pressure 129/77 120/86 Blood Pressure [Left Arm] 129/77 Blood Pressure Mean Blood Pressure Mean [Left Arm] 94 Blood Pressure Source Blood Pressure Source [Left Arm] Automatic Cuff Blood Pressure Position Blood Pressure Position [Left Arm] Sitting 02 Sat by Pulse Oximetry 100 100 100 Oxygen Delivery Method Room Air 04/27/24 15:30 04/27/24 16:00 04/27/24 16:30 Temperature Temperature Source Pulse Rate 90 90 89 Pulse Rate [Apical] Respiratory Rate 16 14 13 Blood Pressure 112/79 110/71 115/74 Blood Pressure [Left Arm] Blood Pressure Mean 84 Blood Pressure Mean [Left Arm] Blood Pressure Source Blood Pressure Source [Left Arm] Blood Pressure Position Blood Pressure Position [Left Arm] 02 Sat by Pulse Oximetry 99 98 99 Oxygen Delivery Method Room Air Room Air 04/27/24 17:00 Temperature 98.0 F Temperature Source Oral Pulse Rate 86 Pulse Rate [Apical] Respiratory Rate 16 Blood Pressure 115/74 Blood Pressure [Left Arm] Blood Pressure Mean Blood Pressure Mean [Left Arm] Blood Pressure Source Automatic Cuff Blood Pressure Source [Left Arm] Blood Pressure Position Sitting Blood Pressure Position [Left Arm] 02 Sat by Pulse Oximetry Oxygen Delivery Method Room Air Lab Data Lab Results 04/27/24 15:30: WBC 6.0, RBC 3.38 L, Hgb 11.2 L, Hct 32.2 L, MCV 95.1, MCH 33.0 H, MCHC 34.7, RDW 14.7, Plt Count 148, MPV 8.5, Neut % (Auto) 73.2, Lymph % (Auto) 22.6, [place] % (Auto) 2.7, Eos % (Auto) 1.0, Baso % (Auto) 0.5, Neut # (Auto) 4.4, Lymph # (Auto) 1.4, [place] # (Auto) 0.2, Eos # (Auto) 0.1, Baso # (Auto) 0.0, Sodium 135 L, Potassium 3.6, Chloride 109 H, Carbon Dioxide 21 L, Anion Gap 8.6, BUN 2 L, Creatinine 0.40 L, Estimated Creat Clear 185, Estimated GFR 193, Est GFR ( Amer) 233, Glucose 92, Calcium 9.0, Magnesium 1.9, Total Bilirubin 1.2, AST 19, ALT 11 L, Alkaline Phosphatase 51, Troponin I < 0.01, Total Protein 6.6 D, Albumin 3.7, Globulin 2.9, Albumin/Globulin Ratio 1.3, TSH 1.38, Thyroxine (T4) 19.2 H 04/27/24 15:30 04/27/24 15:30 Orders (Tests/Meds): ORDERS Category Date Time Status POCUS Point of Care (ER Only) Stat Exams 04/27/24 15:23 Completed CBC w/Auto Diff [Complete Blood Count Auto Diff] Stat Lab 04/27/24 15:30 Completed CMP [Comprehensive Metabolic Panel] Stat Lab 04/27/24 15:30 Completed Magnesium Stat Lab 04/27/24 15:30 Completed T4 (Thyroxine) Stat Lab 04/27/24 15:30 Completed TSH [Thyroid Stimulating Hormone] Stat Lab 04/27/24 15:30 Completed Trop I [Troponin I] Stat Lab 04/27/24 15:30 Completed Medical Decision Narrative: 24-year-old female diagnosed history of POTS, Gilbert disease, anxiety and depression presenting with syncopal episode. Patient states that she had an episode similar to what she normally has just prior to arrival. She had just received LR infusion in infusion clinic. Went to the restroom shortly thereafter, felt as if the room was spinning, stated that she did not feel well, staff and family were able to help her down to the floor after syncopized in. Patient did not fall or hit her head. Since that time, patient states that she feels weak, but otherwise feels at her baseline. No other associated symptoms. History was obtained via conversation with patient. On arrival, patient hemodynamically stable, alert, oriented x4, appropriate, GCS 15, moving all extremities spontaneously, pupils equal and reactive to light. Full physical exam performed and significant for very clinically well-appearing patient. Have seen her numerous times in the recent past and patient's clinical appearance markedly improved from previous. Nontachycardic, normotensive, no extracardiac sounds, pulses equal and symmetric, no lower extremity edema. Lungs are clear to auscultation bilaterally. Differential includes POTS, exaggerated physiologic changes of , anxiety, vasovagal syncope, orthostatic syncope, less likely PE, dissection, ACS, RI, coronary artery dissection, among others. Patient placed on continuous cardiac monitoring and continuous pulse ox with initial blood pressure 129/77, heart rate 89, oxygen saturation 100% on room air. Independent interpretation of EKG shows ventricular rate 91 beats a minute sinus rhythm with no ST or T wave changes concerning for acute ischemia. FL 141, QRS 78, QTc 384. Normal axis. Given patient asymptomatic, fluids were considered, but not deemed necessary at this time. Workup independently interpreted and significant for nonactionable CBC or chemistry. Normal troponin. Remarkably normal labs. Patient's TSH normal, T4 elevated at right around 19, could be physiologic in . On independent interpretation of imaging, patient resting comfortably. See radiology read for full review of final results. Heart score 0. Cardiac [id number] ultrasound at bedside no acute abnormal findings. OB [id number] ultrasound at bedside with normal findings, adequate fluid, flexion and extension movements with heart rate read around 160.,On reevaluation, patient still resting comfortably baseline. Given patient presentation, workup, history, this most likely represents vasovagal syncope versus orthostatic syncope. Because patient at baseline without signs or symptoms of clinical decompensation, deemed appropriate for discharge. Results were relayed to patient who voiced understanding and were agreeable to outpatient management and follow up. I discussed my clinical impression with patient and answered all questions. At this time, the evidence for any other entities in the differential is insufficient to warrant any further testing or ED observation. This was explained as well. Advisory was given that persistent or worsening symptoms require further evaluation. I confirmed the understanding of this discussion. Coat Examiner disclaimer Much of this encounter note is an electronic cost estimating engineer spoken language to printed text. Electronic cost estimating engineer of the spoken language may permit errors. Although I have reviewed the note, some errors may still exist. Procedures Limited Ultrasound Indication:: Limited cardiac ultrasound Indication: Syncope Identified cardiac views: -Cardiac parasternal long axis -Cardiac parasternal short axis Findings: -Cardiac activity present -Gross wall motion normal -Pericardial effusion absent -Right heart strain absent Impression: -Normal cardiac ultrasound Images were saved to permanent archive The study was technically adequate CPT: 85284 This study was performed by ut, and I personally interpreted all images/videos. Based on my clinical judgement, these images were adequate and did not necessitate further imaging Views:: Limited OB ultrasound Indication: Syncopal episode, Identified structures: -Uterus -Left adnexa -Right adnexa -Pouch of [place] Findings: Uterus: Definitive IUP, heart rate rate around 160. Right adnexa: -Normal Left adnexa: -Normal Cul de sac: -free fluid absent Impression: As of IUP with heart rate around 160. Good flexion and extension movements, adequate amount of fluid. Images were saved to permanent archive The study was technically adequate CPT Transabdominal: 98357-82 This study was performed by ut, and I personally interpreted all images/videos. Based on my clinical judgement, these images were adequate and did not necessitate further imaging Critical Care Critical Care Time Critical Care Time: No
--- NOTE | 2024-04-27 15:30 | PC.NURSE ---
ROUNDED ON PT, OFFERED BLANKET. NO NEEDS AT THIS TIME. CALL LIGHT WITHIN REACH
--- NOTE | 2024-04-27 15:36 | ECG_ITS ---
APPROVED REPORT Exam: Resting ECG HR:91 bpm ECG Measurements Heart Rate 91 AXES DE 141 P 54 QRSd 78 QRS 57 QT 335 T 4 QTc 384 Conclusion Sinus rhythm Electronically signed by : MOSES RAY, 04/27/2024 23:08:03
[2024-04-27 15:39] LABS: Basophils % 0.5 % (0.1-2.0); Eosinophils # 0.1 K/mm3 (0.0-0.4); Hematocrit 32.2 % (37.0-47.0); Hemoglobin 11.2 g/dL (12.2-16.2); Lymphocytes # 1.4 K/mm3 (0.7-4.5); Lymphocytes % 22.6 % (10-50); Mean Corpuscular HGB Conc 34.7 g/dL (31.8-35.4); Mean Corpuscular Volume 95.1 fl (81-99); Mean Platelet Volume 8.5 fl (7.4-10.4); Monocytes # 0.2 K/mm3 (0.1-1.0); Monocytes % 2.7 % (1.7-9.3); Neutrophils # 4.4 K/mm3 (1.8-7.8); Neutrophils % 73.2 % (37.0-80.0); Platelet Count 148 K/mm3 (142-424); Red Blood Count 3.38 M/mm3 (4.20-5.40); Red Cell Distribution Width 14.7 % (11.5-17.5)
[2024-04-27 15:44] LABS: Albumin Level 3.7 g/dl (3.5-5.0); Chloride 109 mmol/L (98-107); Sodium 135 mmol/L (136-145)
[2024-04-27 15:45] LABS: Potassium 3.6 mmoL/L (3.5-5.1)
[2024-04-27 15:47] LABS: Alanine Aminotransferase 11 U/L (12-78); Albumin/Globulin Ratio 1.3 (1.1-1.8); Alkaline Phosphatase 51 U/L (38-126); Anion Gap 8.6 mEq/L (5-15); Aspartate Amino Transferase 19 U/L (14-36); Bilirubin,Total 1.2 mg/dl (0.2-1.3); Blood Urea Nitrogen 2 mg/dl (7-17); Carbon Dioxide 21 mmol/L (22.0-30.0); Creatinine Clearance Estimated 185 mL/min (50-200); Estimated Glomerular Filt Rate 193 ml/min (>60); GFR (African American) 233 ML/MIN (>60); Globulin 2.9 g/dL (1.3-3.2); Total Protein,Serum 6.6 g/dl (6.3-8.2)
[2024-04-27 15:48] LABS: Glucose 92 mg/dl (74-100); Magnesium 1.9 mg/dl (1.6-2.3)
[2024-04-27 16:05] LABS: T4 (Thyroxine) 19.2 ug/dl (5.53-11.0); Troponin I < 0.01 ng/ml (0.00-0.034)
--- NOTE | 2024-04-27 16:17 | PC.NURSE ---
DR RAY AT BEDSIDE FOR U/S
--- NOTE | 2024-04-27 16:17 | PC.NURSE ---
jd on phone with dr marin
[2024-04-27 16:19] LABS: Thyroid Stimulating Hormone 1.38 uIU/mL (0.465-4.68)
--- NOTE | 2024-04-27 16:40 | PC.NURSE ---
PT ASSISTED TO BR
== END 2024-04-27 17:00 | disposition home or self-care (01) ==
PROVIDERS: Emergency Provider Emergency Medicine; PCP Family Medicine
DX: R55 Syncope and collapse (principal); R53.1 Weakness; O26.811 Pregnancy related exhaustion and fatigue, first trimester; Z3A.00 Weeks of gestation of pregnancy not specified
CPT/HCPCS: 80050; 80053; 83735; 84436; 84443; 84484; 85025; 93005; 99284

== ENCOUNTER 2024-07-27 18:21 | Emergency (ER) | payer MEDICAID, SELFPAY ==
[2024-07-27 18:23] VITALS: BP 152/87; PULSE 75; RESP 20; TEMP 36.8; O2SAT 100; BMI 19.8
--- NOTE | 2024-07-27 18:32 | ECG_ITS ---
APPROVED REPORT Exam: Resting ECG HR:71 bpm ECG Measurements Heart Rate 71 AXES WI 147 P 59 QRSd 77 QRS 33 QT 338 T 36 QTc 360 Conclusion Sinus rhythm Electronically signed by : MOSES RAY, 07/27/2024 21:52:03
[2024-07-27 18:46] VITALS: BP 136/98; PULSE 98; RESP 16; O2SAT 100
--- NOTE | 2024-07-27 18:57 | XR_ITS ---
PROCEDURE INFORMATION: Exam: XR Chest Exam date and time: 07/27/2024 7:13 PM Age: 24 years old Clinical indication: Shortness of breath and other: Presyncope; Additional info: SOA, presyncope TECHNIQUE: Imaging protocol: Radiologic exam of the chest. Views: 1 view. COMPARISON: CR XR CHEST PORTABLE 02/07/2024 6:03 PM FINDINGS: Lungs: Unremarkable. No consolidation. Pleural spaces: Unremarkable. No pleural effusion. No pneumothorax. Heart/Mediastinum: Unremarkable. No cardiomegaly. Bones/joints: Unremarkable. IMPRESSION: No acute findings.
--- NOTE | 2024-07-27 19:09 | ED_ITS ---
Discharge Plan Disposition Patient Disposition: Home, Self-Care Chief Complaint: Arrhythmia/Palpitations Prescriptions Prescriptions: No Action buspirone 5 mg tablet 5 mg PO BID Qty: 60 2RF Plus Vitamin-Mineral 27 mg iron- 1 mg Tablet 1 tab PO DAILY hydroxyzine HCl 25 mg tablet 25 mg PO TIDP PRN (Reason: anxiety) Qty: 60 1RF escitalopram oxalate 10 mg tablet 10 mg PO DAILY ondansetron HCl 4 mg tablet 4 mg PO Q8HP PRN (Reason: nausea and vomiting) propranolol 10 mg Tablet 10 mg PO BID ondansetron 4 mg tablet,disintegrating 4 mg PO Q6H PRN (Reason: nausea and vomiting) Qty: 10 2RF Referrals Follow up/Referrals: Molly Louis MD [Primary Care Provider] - See instructions Activity Restrictions/Add. Instructions Additional Instructions/Restrictions: Call your family doctor to establish care for this visit to the emergency department and schedule follow-up within 48 hours to ensure improvement. If you have any worsening of your condition or any other concerning signs or symptoms, return to the emergency department or your primary care doctor for further evaluation. Clinical Impressions Clinical Impression: Heart palpitations Print Language Print Language: Albanian Discharge ED Provider: Juni Leonardo General Adult HPI General Chief complaint: Arrhythmia/Palpitations Stated complaint: heart palpitations dizziness lightheaded lanza Time Seen by Provider: 07/27/24 18:29 Mode of Arrival: Ambulatory Source of Information: Patient Limitations: No Limitations Description of Symptoms (Recalled from ER Triage Doc. by RN): pt is 11 days post and began having worse than normal palpitations as soa and headache, pt has been seen here in the past for POTS like s/s amd follow with [facility] and [facility] History of Present Illness HPI narrative: Please note that above description of symptoms, in this electronic medical record under categorization of recalled from ER triage doctor by RN are reflective of an initial nursing assessment, however, is not reflective of my full history and physical exam that was personally taken and clarified. Consequentially, this preceding description of symptoms, which may include the patient's categorized chief complaint in the EMR, do not reflect my personal clinical impression, and the ultimate description of history of present illness and patient stated complaints should be deferred to this section of the note. Unless stated otherwise or congruent with this section of the note, additional signs, symptoms, or incongruence should be interpreted as inaccurate with my clinical impression. Related Data Home Medications ?Medication ?Instructions ?Recorded ?Confirmed vitamin no.180-ferrous 1 tab PO DAILY 12/05/23 03/04/24 fumarate 27 mg-folic acid 1 mg tablet ( Plus Vitamin-Mineral) escitalopram oxalate 10 mg tablet 10 mg PO DAILY 02/05/24 03/04/24 ondansetron HCl 4 mg tablet 4 mg PO Q8HP PRN nausea and 02/05/24 03/04/24 vomiting propranolol 10 mg tablet 10 mg PO BID 03/04/24 03/04/24 Previous Rx's ?Medication ?Instructions ?Recorded hydroxyzine HCl 25 mg tablet 25 mg PO TIDP PRN anxiety #60 tabs 01/25/24 buspirone 5 mg tablet 5 mg PO BID #60 tabs 01/29/24 ondansetron 4 mg disintegrating 4 mg PO Q6H PRN nausea and 03/11/24 tablet vomiting #10 tabs Allergies Allergy/AdvReac Type Severity Reaction Status Date / Time cinnamon Allergy Severe Swelling Verified 02/03/24 11:53 of Lip/Tongue/Throat amoxicillin (From Augmentin) Allergy Verified 02/03/24 11:53 clavulanic acid (From Allergy Verified 02/03/24 11:53 Augmentin) Penicillins Allergy Verified 02/03/24 11:53 PFS PFSH Disclaimer: The information contained in this section may have been updated after the patient was seen, as this information can be updated by other users. Medical History (Updated 07/27/24 @ 20:37 by Juni Leonardo MD) POTS (postural orthostatic tachycardia syndrome) Anxiety disorder affecting , antepartum Norovirus Enteritis due to Norovirus Elevated brain natriuretic peptide (BNP) level Gilbert's disease of unknown anatomic location Diarrhea Chest pain Herpes simplex of female genitalia Tobacco dependence syndrome Surgical History Hx of dilation and curettage Hx of tonsillectomy Family History Other Family history of myocardial infarction Family history of stroke Social History Smoking Status: Never smoker second hand exposure: Yes alcohol intake: current alcohol intake frequency: holidays/special occasions only substance use type: denies use current occupational status: employed Travel in the last 8 weeks: None housing: house Have you lived/traveled outside [place] in past 30 days?: No Contact w/someone who lives/traveled outside [place] past 30 days?: No Exposure to someone with infectious disease in past 14 days?: No Do you have a fever (greater than 100.4 F or 38 C)?: No Have you tested positive for COVID-19: No Exposed to someone with COVID-19 in past 14 days?: No Do you have a sore throat?: No Do you have a cough?: No Do you have any weakness?: No Do you have any diarrhea?: No Are you experiencing any unusual bleeding?: No Do you have any muscle aches/pain?: No Do you have any abdominal pain?: No Are you experiencing loss of taste or smell?: No Other Medical History Have you received the Flu Vaccine for this season: No Have you received the Pneumonia Vaccine: No ROS Obtained: Yes All systems reviewed & no additional complaints except as documented Physical Exam General General appearance: alert Head Head exam: atraumatic and normocephalic Eye Eye exam: Present normal appearance, PERRL and EOMI Neck Neck exam: Present normal inspection, full ROM and trachea midline Respiratory Respiratory exam: Absent respiratory distress, wheezes, stridor, accessory muscle use or prolonged expiratory phase Cardiovascular Cardiovascular exam: Present other (Pulses equal symmetric in upper and lower extremities) Abdominal Exam Abdominal exam: Present soft; Absent distention, tenderness or pulsatile mass Extremities Exam Extremities exam: Absent edema Neurological Exam Neurological exam: Present alert, oriented X3 and CN II-XII intact; Absent motor sensory deficit Skin Skin exam: Present warm and dry; Absent diaphoresis or erythema Medical Decision Making Medical Records Medical records reviewed: Yes I reviewed the patient's medical records. Screening: Per USPSTF and CDC recommendations, given the prevalence of disease in our region, it is our hospital?s policy to screen for HIV and viral Hepatitis for all patients aged 18 and over and those with ongoing risk factors. Paresh Inquiry Pt receiving controlled substance: No Paresh was queried for this patient: No Vital Signs: 07/27/24 18:23 07/27/24 18:46 Temperature 98.2 F Temperature Source Oral Pulse Rate 98 H Pulse Rate [Left Radial] 75 Respiratory Rate 20 16 Blood Pressure 136/98 H Blood Pressure [Right Arm] 152/87 H Blood Pressure Mean [Right Arm] 108 02 Sat by Pulse Oximetry 100 100 Oxygen Delivery Method Room Air Lab Data Lab Results 07/27/24 19:10: WBC 6.8, RBC 4.39, Hgb 13.8, Hct 39.7, MCV 90.4, MCH 31.4 H, MCHC 34.8, RDW 12.7, Plt Count 205, MPV 10.9 H, Neut % (Auto) 58.1, Lymph % (Auto) 35.7, [place] % (Auto) 4.4, Eos % (Auto) 0.9, Baso % (Auto) 0.6, Neut # (Auto) 3.9, Lymph # (Auto) 2.4, [place] # (Auto) 0.3, Eos # (Auto) 0.1, Baso # (Auto) 0.0, PT 10.1, INR 0.89 L, APTT 30.5, D-Dimer 0.36, Sodium 140, Potassium 4.0, Chloride 106, Carbon Dioxide 24, Anion Gap 14.0, BUN 11, Creatinine 0.70, Estimated Creat Clear 104, Estimated GFR 101, Est GFR ( Amer) 122, Glucose 89, Calcium 9.5, Magnesium 2.1, Total Bilirubin 0.9, AST 31, ALT 22, Alkaline Phosphatase 72, Troponin I < 0.01, Total Protein 7.1, Albumin 4.1, Globulin 3.0, Albumin/Globulin Ratio 1.4, TSH 1.04, Thyroxine (T4) 12.6 H 07/27/24 19:10 07/27/24 19:10 Orders (Tests/Meds): ORDERS Category Date Time Status XR chest portable Stat Exams 07/27/24 18:57 Taken Complete Blood Count Auto Diff Stat Lab 07/27/24 19:10 Completed Comprehensive Metabolic Panel Stat Lab 07/27/24 19:10 Completed D-Dimer Stat Lab 07/27/24 19:10 Completed Magnesium Stat Lab 07/27/24 19:10 Completed PT INR [Prothrombin Time INR] Stat Lab 07/27/24 19:10 Completed PTT [Activated Partial Thrombo Time] Stat Lab 07/27/24 19:10 Completed T4 (Thyroxine) Stat Lab 07/27/24 19:10 Completed TSH [Thyroid Stimulating Hormone] Stat Lab 07/27/24 19:10 Completed Troponin I Q3H Lab 07/27/24 22:00 Ordered Troponin I Q3H Lab 07/28/24 01:00 Ordered Troponin I Stat Lab 07/27/24 19:10 Completed Medical Decision Narrative: 24-year-old female 11 days status post spontaneous vaginal delivery presenting with palpitations. Patient has a history of anxiety, palpitations, POTS syndrome. Currently following with [employer] and cardiology at [facility]. States that she was feeling pretty well after her vaginal delivery until yesterday, 07/26. States that she started having palpitations feeling lightheaded when she is standing and changing positions. Last 10 to 15 seconds, she has not syncopized, but feels like she needs to. Some chest tightness, but no overt chest pain. No shortness of breath, cough, fevers, chills, vaginal discharge or bleeding, or any other concerns. She is currently on 40 mg Lovenox daily out of concern for patient's cardiovascular status and recently status to prevent clots.. History was obtained via conversation with patient. On arrival, patient hemodynamically stable, alert, oriented x4, appropriate, GCS 15, moving all extremities spontaneously, pupils equal and reactive to light. Full physical exam performed and significant for clinically well. Nontachycardic. Lungs are clear, cardiac exam normal. No lower extremity edema. Patient speaking in full sentences. Differential includes metabolic abnormality, endocrinologic abnormality, hyperthyroidism, PE, pneumothorax, pneumonia, among others. Patient placed on continuous cardiac monitoring and continuous pulse ox with initial blood pressure 152/87, heart rate of 95, saturation 100% on room air. Independent interpretation of EKG shows sinus rhythm 71 bpm with DE interval 147, QRS 77, QTc was 360 with normal axis and no signs of heart strain.. Patient was given p.o. challenge for symptomatic management and correction of underlying abnormalities. Workup independently interpreted and significant for nonactionable CBC or chemistry. Patient's INR normal. Nonactionable cardiac studies or thyroid studies. Dimer negative. On independent interpretation of imaging, no acute cardiopulmonary airspace disease. See radiology read for full review of final results. On reevaluation, patient resting at baseline. On shelter monitor, patient has had a couple episodes of random tachycardia, however overall in the 80s. Unsure what is causing patient's symptoms, but I feel from an emergency standpoint she is appropriate for home-going and outpatient follow-up. Because patient at baseline without signs or symptoms of clinical decompensation, deemed appropriate for discharge. Results were relayed to patient who voiced understanding and were agreeable to outpatient management and follow up. I discussed my clinical impression with patient and answered all questions. At this time, the evidence for any other entities in the differential is insufficient to warrant any further testing or ED observation. This was explained as well. Advisory was given that persistent or worsening symptoms require further evaluation. I confirmed the understanding of this discussion. Manager Surgery disclaimer Much of this encounter note is an electronic structural steel erection supervisor spoken language to printed text. Electronic structural steel erection supervisor of the spoken language may permit errors. Although I have reviewed the note, some errors may still exist. Critical Care Critical Care Time Critical Care Time: No
[2024-07-27 19:22] LABS: Basophils % 0.6 % (0.1-2.0); Eosinophils # 0.1 K/mm3 (0.0-0.4); Eosinophils % 0.9 % (0.1-12.0); Hematocrit 39.7 % (37.0-47.0); Hemoglobin 13.8 g/dL (12.2-16.2); Lymphocytes # 2.4 K/mm3 (0.7-4.5); Lymphocytes % 35.7 % (10-50); Mean Corpuscular HGB Conc 34.8 g/dL (31.8-35.4); Mean Corpuscular Hemoglobin 31.4 pg (27.0-31.2); Mean Corpuscular Volume 90.4 fl (81-99); Mean Platelet Volume 10.9 fl (7.4-10.4); Monocytes # 0.3 K/mm3 (0.1-1.0); Monocytes % 4.4 % (1.7-9.3); Neutrophils # 3.9 K/mm3 (1.8-7.8); Neutrophils % 58.1 % (37.0-80.0); Platelet Count 205 K/mm3 (142-424); Red Blood Count 4.39 M/mm3 (4.20-5.40); Red Cell Distribution Width 12.7 % (11.5-17.5); White Blood Count 6.8 K/mm3 (4.8-10.8)
[2024-07-27 19:27] LABS: Albumin Level 4.1 g/dl (3.5-5.0); Chloride 106 mmol/L (98-107); Sodium 140 mmol/L (136-145)
[2024-07-27 19:30] LABS: Alanine Aminotransferase 22 U/L (12-78); Albumin/Globulin Ratio 1.4 (1.1-1.8); Alkaline Phosphatase 72 U/L (38-126); Aspartate Amino Transferase 31 U/L (14-36); Bilirubin,Total 0.9 mg/dl (0.2-1.3); Blood Urea Nitrogen 11 mg/dl (7-17); Carbon Dioxide 24 mmol/L (22.0-30.0); Creatinine Clearance Estimated 104 mL/min (50-200); Estimated Glomerular Filt Rate 101 ml/min (>60); GFR (African American) 122 ML/MIN (>60); Magnesium 2.1 mg/dl (1.6-2.3); Total Protein,Serum 7.1 g/dl (6.3-8.2)
[2024-07-27 19:31] LABS: Calcium 9.5 mg/dl (8.4-10.2); Glucose 89 mg/dl (74-100); INR 0.89 (0.9-1.1); Prothrombin Time 10.1 seconds (10.1-12.5)
[2024-07-27 19:44] LABS: D-Dimer 0.36 ug/mL (0.0-0.5)
[2024-07-27 19:47] LABS: T4 (Thyroxine) 12.6 ug/dl (5.53-11.0)
[2024-07-27 19:48] LABS: Activated Partial Thrombo Time 30.5 seconds (22.8-30.6); Troponin I < 0.01 ng/ml (0.00-0.034)
[2024-07-27 20:01] LABS: Thyroid Stimulating Hormone 1.04 uIU/mL (0.465-4.68)
[2024-07-27 20:38] VITALS: BP 123/93; PULSE 82; RESP 16; TEMP 36.8; O2SAT 99
== END 2024-07-27 20:49 | disposition home or self-care (01) ==
PROVIDERS: Emergency Provider Emergency Medicine; PCP Family Medicine
DX: R00.2 Palpitations (principal); R42 Dizziness and giddiness; R51.9 Headache, unspecified; R06.02 Shortness of breath
CPT/HCPCS: 71045; 80050; 80053; 83735; 84436; 84443; 84484; 85025; 85378; 85610; 85730; 93005; 99284

== ENCOUNTER 2024-10-17 10:08 | Outpatient (CLI) | payer MEDICAID, SELFPAY ==
[2024-10-17 10:16] LABS: Anti-Centromere B Antibodies ND; Anti-DNA (DS) Ab Qn ND; Anti-Jo-1 ND; Antichromatin Antibodies ND; Antiscleroderma-70 Antibodies ND; RNP Antibodies ND; Sjogren's Anti-SS-A ND; Sjogren's Anti-SS-B ND
[2024-10-17 10:51] LABS: Basophils % 0.8 % (0.1-2.0); Eosinophils % 0.6 % (0.1-12.0); Hematocrit 38.3 % (37.0-47.0); Hemoglobin 12.9 g/dL (12.2-16.2); Lymphocytes # 1.6 K/mm3 (0.7-4.5); Lymphocytes % 31.5 % (10-50); Mean Corpuscular HGB Conc 33.7 g/dL (31.8-35.4); Mean Corpuscular Hemoglobin 29.7 pg (27.0-31.2); Mean Platelet Volume 11.3 fl (7.4-10.4); Monocytes # 0.3 K/mm3 (0.1-1.0); Monocytes % 5.2 % (1.7-9.3); Neutrophils # 3.2 K/mm3 (1.8-7.8); Neutrophils % 61.7 % (37.0-80.0); Platelet Count 217 K/mm3 (142-424); Red Blood Count 4.35 M/mm3 (4.20-5.40); Red Cell Distribution Width 13.1 % (11.5-17.5); White Blood Count 5.2 K/mm3 (4.8-10.8)
[2024-10-17 11:18] LABS: Albumin Level 5.1 g/dl (3.5-5.0); Chloride 106 mmol/L (98-107); Potassium 4.4 mmoL/L (3.5-5.1); Sodium 139 mmol/L (136-145)
[2024-10-17 11:20] LABS: Alanine Aminotransferase 18 U/L (12-78); Aspartate Amino Transferase 22 U/L (14-36); Blood Urea Nitrogen 8 mg/dl (7-17); Estimated Glomerular Filt Rate 101 ml/min (>60); GFR (African American) 122 ML/MIN (>60)
[2024-10-17 11:21] LABS: Alkaline Phosphatase 50 U/L (38-126); Anion Gap 12.4 mEq/L (5-15); Bilirubin,Total 2.6 mg/dl (0.2-1.3); Calcium 9.9 mg/dl (8.4-10.2); Carbon Dioxide 25 mmol/L (22.0-30.0); Chol/HDL Ratio 2.7 (1-3.5); Cholesterol 181 mg/dl (140-200); Globulin 2.5 g/dL (1.3-3.2); Glucose 89 mg/dl (74-100); HDL Cholesterol 67 mg/dl (40-60); Magnesium 1.9 mg/dl (1.6-2.3); Total Protein,Serum 7.6 g/dl (6.3-8.2); Triglycerides 93 mg/dl (30-150); VLDL Cholesterol 19 mg/dL (0-40)
[2024-10-17 11:32] LABS: Direct LDL Cholesterol 79.13 mg/dL (100-129)
[2024-10-17 11:45] LABS: T4 (Thyroxine) 12.2 ug/dl (5.53-11.0)
[2024-10-17 11:49] LABS: 25-OH Vitamin D, Total 26.7 ng/mL (30-100)
[2024-10-17 11:59] LABS: Thyroid Stimulating Hormone 0.07 uIU/mL (0.465-4.68)
[2024-10-17 12:03] LABS: Ferritin 8.19 ng/ml (6.24-137)
[2024-10-17 12:38] LABS: Vitamin B12 437 pg/mL (239-931)
[2024-10-17 14:18] LABS: Free T4 (Free Thyroxine) 1.56 ng/dl (0.78-2.19)
[2024-10-18 10:42] LABS: Thyroid Peroxidase Antibodies 177 IU/mL (0-34); Triiodothyronine (T3) Free 4.3 pg/mL (2.0-4.4)
[2024-10-18 11:22] LABS: Antinuclear Antibodies (ANA) Negative (Negative)
[2024-10-18 18:10] LABS: Thyroglobulin Level 14.5 IU/mL (0.0-0.9)
[2024-10-20 16:24] LABS: Cortisol,AM 8.4 ug/dL (6.2-19.4)
[2024-10-21 16:12] LABS: Vitamin B1 102.6 nmol/L (66.5-200.0)
[2024-10-25 08:43] LABS: Vitamin B6 10.1 ug/L (3.4-65.2)
== END 2024-10-17 23:59 | disposition home or self-care (01) ==
LOC: LAB 10:09
PROVIDERS: PCP Nurse Practitioner Family; Visit Provider Nurse Practitioner Family
DX: G90.A Postural orthostatic tachycardia syndrome [POTS] (principal); R79.89 Other specified abnormal findings of blood chemistry; D64.9 Anemia, unspecified; E80.4 Gilbert syndrome
CPT/HCPCS: 36415; 80053; 80061; 82306; 82533; 82607; 82728; 83735; 84207; 84425; 84436; 84439; 84443; 84481; 85025; 86038; 86376; 86800

== ENCOUNTER 2024-10-19 22:34 | Emergency (ER) | payer MEDICAID, SELFPAY ==
--- NOTE | 2024-10-19 22:35 | ECG_ITS ---
APPROVED REPORT Exam: Resting ECG HR:97 bpm ECG Measurements Heart Rate 97 AXES TX 142 P 73 QRSd 80 QRS 62 QT 313 T -35 QTc 368 Conclusion SINUS RHYTHM WITH OCCASIONAL ECTOPIC PREMATURE COMPLEXES ST DEVIATION AND MODERATE T-WAVE ABNORMALITY, CONSIDER INFERIOR ISCHEMIA [-0.1+ mV T-WAVE IN II/aVF] ABNORMAL ECG No STEMI Electronically signed by : JOSE CARLOS RDZ, 10/20/2024 07:07:52
[2024-10-19 22:42] VITALS: BP 137/99; PULSE 95; RESP 20; TEMP 36.6; O2SAT 100; BMI 23.3
--- NOTE | 2024-10-19 22:44 | XR_ITS ---
PROCEDURE INFORMATION: Exam: XR Chest Exam date and time: 10/19/2024 11:05 PM Age: 24 years old Clinical indication: Pain; Chest pressure; Additional info: Cp TECHNIQUE: Imaging protocol: Radiologic exam of the chest. Views: 2 views. COMPARISON: CR XR CHEST PORTABLE 07/27/2024 7:13 PM FINDINGS: Lungs: Unremarkable. No consolidation. Pleural spaces: Unremarkable. No pleural effusion. No pneumothorax. Heart/Mediastinum: Unremarkable. No cardiomegaly. Bones/joints: Unremarkable. IMPRESSION: No acute radiographic findings identified.
[2024-10-19 22:46] VITALS: BP 142/102; PULSE 98; O2SAT 100
[2024-10-19] MEDS: ASPIRIN 81MG CHEWABLE TABLET 324 MG PO (22:52)
[2024-10-19 22:56] LABS: Basophils % 0.6 % (0.1-2.0); Eosinophils % 0.6 % (0.1-12.0); Hematocrit 41.4 % (37.0-47.0); Hemoglobin 13.9 g/dL (12.2-16.2); Lymphocytes # 2.6 K/mm3 (0.7-4.5); Lymphocytes % 38.7 % (10-50); Mean Corpuscular HGB Conc 33.6 g/dL (31.8-35.4); Mean Corpuscular Hemoglobin 29.2 pg (27.0-31.2); Mean Platelet Volume 11.4 fl (7.4-10.4); Monocytes # 0.4 K/mm3 (0.1-1.0); Monocytes % 5.2 % (1.7-9.3); Neutrophils # 3.7 K/mm3 (1.8-7.8); Neutrophils % 54.8 % (37.0-80.0); Platelet Count 201 K/mm3 (142-424); Red Blood Count 4.76 M/mm3 (4.20-5.40); Red Cell Distribution Width 12.9 % (11.5-17.5); White Blood Count 6.7 K/mm3 (4.8-10.8)
[2024-10-19 23:00] VITALS: BP 143/90; PULSE 104; RESP 18; O2SAT 100
[2024-10-19 23:01] LABS: Alanine Aminotransferase 17 U/L (12-78); Albumin Level 5.5 g/dl (3.5-5.0); Albumin/Globulin Ratio 1.6 (1.1-1.8); Alkaline Phosphatase 50 U/L (38-126); Anion Gap 17.7 mEq/L (5-15); Aspartate Amino Transferase 23 U/L (14-36); Blood Urea Nitrogen 13 mg/dl (7-17); Calcium 10.4 mg/dl (8.4-10.2); Carbon Dioxide 23 mmol/L (22.0-30.0); Chloride 104 mmol/L (98-107); Creatinine Clearance Estimated 107 mL/min (50-200); Estimated Glomerular Filt Rate 87 ml/min (>60); GFR (African American) 105 ML/MIN (>60); Globulin 3.5 g/dL (1.3-3.2); Glucose 77 mg/dl (74-100); HCG Qualitative, Serum Negative (Negative); Potassium 3.7 mmoL/L (3.5-5.1); Sodium 141 mmol/L (136-145)
[2024-10-19 23:05] LABS: D-Dimer 0.33 ug/mL (0.0-0.5)
[2024-10-19 23:14] LABS: Troponin I < 0.01 ng/ml (0.00-0.034)
[2024-10-19 23:25] VITALS: BP 135/102; PULSE 105; RESP 12; O2SAT 100
[2024-10-19 23:30] VITALS: BP 148/84; PULSE 98; RESP 13; O2SAT 97
[2024-10-20] VITALS: BP 144/85; RESP 13; O2SAT 96
[2024-10-20 00:13] LABS: Coronavirus 19, PCR Not Detected (NotDetected); Influenza A, PCR Not Detected (NotDetected); Influenza B, PCR Not Detected (NotDetected)
[2024-10-20] MEDS: LACTATED RINGERS 1000ML 1,000 ML 999 ML IV (00:13)
[2024-10-20 00:28] LABS: T4 (Thyroxine) 12.2 ug/dl (5.53-11.0)
[2024-10-20 00:41] LABS: Thyroid Stimulating Hormone 0.16 uIU/mL (0.465-4.68)
[2024-10-20 00:53] LABS: Microscopic, Urine URINE MICROSCOPIC (MICROSCOPIC)
[2024-10-20 00:55] LABS: Appearance,Urine CLEAR (Clear); Bilirubin,Urine Negative (Negative); Blood, Urine Negative (Negative); Color,Urine YELLOW (Yellow); Glucose,Urine (UA) Negative (Negative); Ketones,Urine Negative (Negative); Leukocyte Esterase,Urine SMALL (Negative); Nitrate,Urine Negative (Negative); Protein,Urine Negative (Negative); Specific Gravity, Urine 1.015 (1.005-1.030); Urobilinogen,Urine 0.2 EU/dl (0.2)
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
--- NOTE | 2024-10-20 01:01 | PC.NURSE ---
report called to JANELL Jules
[2024-10-20 01:05] VITALS: BP 137/83; PULSE 101; RESP 14; TEMP 36.8; O2SAT 100; BMI 23.3
[2024-10-20 01:11] VITALS: BP 137/83; PULSE 76; RESP 14; O2SAT 100
[2024-10-20 01:18] VITALS: BP 137/83; PULSE 100; RESP 22; TEMP 37.2; O2SAT 99
[2024-10-20 01:18] LABS: RBC,Urine Occasional #/hpf (0-3); Squamous Epithelial Cell,Urine Occasional #/hpf (0-5); WBC,Urine Occasional #/hpf (0-3)
--- NOTE | 2024-10-20 01:50 | PC.NURSE ---
Adrienne called [facility] for a possible transfer for pt
--- NOTE | 2024-10-20 01:52 | PC.NURSE ---
PT BACK TO ER ROOM 6 AWAITING POSSIBLE TRANSFER. PT A&O, RESPS EVEN AND NONLABORED. PT DENIES ANY PAIN, NO DSTRESS NOTED. PT PLACED BACK ON MONITOR. PROVIDER MADE AWARE.
[2024-10-20 01:56] VITALS: BP 132/85; PULSE 93; RESP 22; TEMP 37.2; O2SAT 99
--- NOTE | 2024-10-20 02:07 | PC.NURSE ---
[facility] will call back with bed assignment.
== END 2024-10-20 02:59 | disposition short-term general hospital (02) ==
PROVIDERS: Emergency Medicine; Emergency Provider Emergency Medicine
DX: E05.90 Thyrotoxicosis, unspecified without thyrotoxic crisis or storm (principal); R55 Syncope and collapse; N95.1 Menopausal and female climacteric states
CPT/HCPCS: 71046; 80053; 81001; 84436; 84443; 84484; 84703; 85025; 85378; 87636; 93005; 96360; 99285; J7120

== ENCOUNTER 2024-10-26 07:57 | Outpatient (CLI) | payer MEDICAID, SELFPAY ==
[2024-10-27 15:21] LABS: Adrenocorticotropic Hormone 22.8 pg/mL (7.2-63.3); Cortisol,AM 14.9 ug/dL (6.2-19.4)
[2024-10-31 13:09] LABS: Renin Activity, Plasma 1.151 ng/mL/hr (0.167-5.380)
[2024-10-31 19:13] LABS: Free Testosterone (Direct) 1.7 pg/mL (0.0-4.2); Testosterone, Total, LC/MS 21.4 ng/dL (10.0-55.0)
[2024-11-02 17:11] LABS: Dopamine, Plasma < 30 pg/mL (0-48); Epinephrine, Plasma < 15 pg/mL (0-62); Norepinephrine, Plasma 409 pg/mL (0-874)
== END 2024-10-26 23:59 | disposition home or self-care (01) ==
LOC: LAB 07:59
PROVIDERS: PCP Nurse Practitioner Family; Visit Provider Nurse Practitioner Family
DX: G90.9 Disorder of the autonomic nervous system, unspecified (principal); E05.90 Thyrotoxicosis, unspecified without thyrotoxic crisis or storm; R00.0 Tachycardia, unspecified; R55 Syncope and collapse; R79.89 Other specified abnormal findings of blood chemistry; R23.2 Flushing; R53.1 Weakness
CPT/HCPCS: 36415; 82024; 82088; 82384; 82533; 84244; 84402; 84403

== ENCOUNTER 2024-11-04 18:15 | Inpatient (IN) | payer MEDICAID, SELFPAY ==
[2024-11-04] VITALS (11 sets, daily range): BP systolic 110–143; BP diastolic 65–102; PULSE 90–121; RESP 14–24; TEMP 37–37.1; O2SAT 99–100; BMI 23.1
--- NOTE | 2024-11-04 18:15 | ECG_ITS ---
APPROVED REPORT Exam: Resting ECG HR:106 bpm ECG Measurements Heart Rate 106 AXES DE 127 P 67 QRSd 77 QRS 81 QT 308 T -19 QTc 370 Conclusion SINUS TACHYCARDIA NONSPECIFIC ST & T-WAVE ABNORMALITY ABNORMAL ECG UNCONFIRMED REPORT Electronically signed by : ALEXANDER BRISENO, 11/06/2024 03:40:23
--- NOTE | 2024-11-04 18:31 | XR_ITS ---
PROCEDURE INFORMATION: Exam: XR Chest Exam date and time: 11/04/2024 6:52 PM Age: 24 years old Clinical indication: Pain; Other: Cp; Additional info: Chest pain TECHNIQUE: Imaging protocol: Radiologic exam of the chest. Views: 1 view. COMPARISON: CR XR CHEST 2V 10/19/2024 11:05 PM FINDINGS: Lungs: Unremarkable. No consolidation. Pleural spaces: Unremarkable. No pleural effusion. No pneumothorax. Heart/Mediastinum: Unremarkable. No cardiomegaly. Bones/joints: Unremarkable. IMPRESSION: No acute findings.
[2024-11-04 18:44] LABS: Albumin Level 4.7 g/dl (3.5-5.0); Chloride 109 mmol/L (98-107); Sodium 140 mmol/L (136-145)
[2024-11-04 18:47] LABS: Alanine Aminotransferase 19 U/L (12-78); Albumin/Globulin Ratio 1.4 (1.1-1.8); Alkaline Phosphatase 56 U/L (38-126); Aspartate Amino Transferase 30 U/L (14-36); Bilirubin,Total 1.9 mg/dl (0.2-1.3); Blood Urea Nitrogen 7 mg/dl (7-17); Calcium 9.4 mg/dl (8.4-10.2); Carbon Dioxide 20 mmol/L (22.0-30.0); Creatinine Clearance Estimated 141 mL/min (50-200); Estimated Glomerular Filt Rate 121 ml/min (>60); GFR (African American) 146 ML/MIN (>60); Globulin 3.3 g/dL (1.3-3.2); Glucose 89 mg/dl (74-100)
[2024-11-04 19:11] LABS: Troponin I < 0.01 ng/ml (0.00-0.034)
[2024-11-04] MEDS: 0.9 % SODIUM CHLORIDE 1000ML 1,000 ML 999 ML IV (19:19)
[2024-11-04] MEDS: ONDANSETRON 4MG/2ML VIAL 4 MG IV (19:38)
--- NOTE | 2024-11-04 19:44 | HMH.EDGENADL ---
Discharge Plan Disposition Patient Disposition: Admitted Chief Complaint: Dizziness Prescriptions Prescriptions: No Action famotidine 20 mg tablet 20 mg PO DAILY (DME) lancets [OneTouch Delica Plus Lancet] 33 gauge misc See Rx Instructions .ROUTE .MEDSUPPLY Qty: 100 Rx Instructions: As directed (DME) OneTouch Verio test strips Strip See Rx Instructions .ROUTE .MEDSUPPLY Qty: 10 Rx Instructions: As directed (DME) blood-glucose meter [OneTouch Verio Reflect Meter] Misc See Rx Instructions .ROUTE .MEDSUPPLY Qty: 1 Rx Instructions: As directed albuterol sulfate [Ventolin HFA] 90 mcg/actuation HFA aerosol inhaler 1 puff inhalation NEEDED PRN (Reason: SOA) buspirone 5 mg tablet 5 mg PO DAILY cholecalciferol (vitamin D3) 50 mcg (2,000 unit) capsule 50 mcg PO DAILY Qty: 30 2RF methimazole 10 mg tablet 10 mg PO DAILY Qty: 30 0RF ondansetron HCl 4 mg tablet 4 mg PO Q8HP PRN (Reason: nausea and vomiting) propranolol 10 mg tablet 10 mg PO BID Patient Comments: Pt reports once daily unless needed for tachycardia/palpitations then she will take second dose. Referrals Follow up/Referrals: Padmini Wyatt APRN [Primary Care Provider] - See instructions Clinical Impressions Clinical Impression: Orthostatic syncope Print Language Print Language: Montenegrin Discharge ED Provider: Juni Leonardo General Adult HPI General Chief complaint: Dizziness Stated complaint: Chest Pain Time Seen by Provider: 11/04/24 18:19 Mode of Arrival: Wheelchair Source of Information: Patient Description of Symptoms (Recalled from ER Triage Doc. by RN): pt to the ED with dizziness, chest pain and weakness since this morning. pt reports s history of POTS and an adrenal disease. pt denies any fever or SOB at this time. pt reports he pain as a dull pressure in the center of her chest. History of Present Illness HPI narrative: Please note that above description of symptoms, in this electronic medical record under categorization of recalled from ER triage doctor by RN are reflective of an initial nursing assessment, however, is not reflective of my full history and physical exam that was personally taken and clarified. Consequentially, this preceding description of symptoms, which may include the patient's categorized chief complaint in the EMR, do not reflect my personal clinical impression, and the ultimate description of history of present illness and patient stated complaints should be deferred to this section of the note. Unless stated otherwise or congruent with this section of the note, additional signs, symptoms, or incongruence should be interpreted as inaccurate with my clinical impression. Related Data Home Medications ?Medication ?Instructions ?Recorded ?Confirmed ondansetron HCl 4 mg tablet 4 mg PO Q8HP PRN nausea and 02/05/24 11/04/24 vomiting blood sugar diagnostic (OneTouch #10 ea 08/31/24 11/04/24 Verio test strips) blood-glucose meter ([employer] [facility] - AmniofilmTouch #1 ea 08/31/24 11/04/24 Verio Reflect Meter) famotidine 20 mg tablet 20 mg PO DAILY 08/31/24 11/04/24 lancets 33 gauge (OneTouch Delica #100 ea 08/31/24 11/04/24 Plus Lancet) albuterol sulfate 90 mcg/actuation 1 puff inhalation NEEDED PRN SOA 10/10/24 11/04/24 aerosol inhaler (Ventolin HFA) buspirone 5 mg tablet 5 mg PO DAILY 10/17/24 11/04/24 propranolol 10 mg tablet 10 mg PO BID 10/17/24 11/04/24 Previous Rx's ?Medication ?Instructions ?Recorded cholecalciferol (vitamin D3) 50 50 mcg PO DAILY #30 caps 10/25/24 mcg (2,000 unit) capsule methimazole 10 mg tablet 10 mg PO DAILY #30 tabs 11/04/24 Allergies Allergy/AdvReac Type Severity Reaction Status Date / Time cinnamon Allergy Severe Swelling Verified 11/04/24 08:50 of Lip/Tongue/Throat amoxicillin (From Augmentin) Allergy Verified 11/04/24 08:50 clavulanic acid (From Allergy Verified 11/04/24 08:50 Augmentin) Penicillins Allergy Verified 11/04/24 08:50 PFSH PFS Disclaimer: The information contained in this section may have been updated after the patient was seen, as this information can be updated by other users. Medical History Gilbert's disease POTS (postural orthostatic tachycardia syndrome) Anxiety disorder affecting , antepartum Norovirus Enteritis due to Norovirus Elevated brain natriuretic peptide (BNP) level of unknown anatomic location Diarrhea Chest pain Herpes simplex of female genitalia Tobacco dependence syndrome Surgical History Hx of cholecystectomy H/O hand surgery right Hx of dilation and curettage Hx of tonsillectomy Family History Other Family history of myocardial infarction Family history of stroke Social History Smoking Status: Never smoker second hand exposure: Yes alcohol intake: former substance use type: denies use current occupational status: unemployed Travel in the last 8 weeks: None housing: house Have you lived/traveled outside [place] in past 30 days?: No Contact w/someone who lives/traveled outside [place] past 30 days?: No Exposure to someone with infectious disease in past 14 days?: No Do you have a fever (greater than 100.4 F or 38 C)?: No Have you tested positive for COVID-19: No Exposed to someone with COVID-19 in past 14 days?: No Do you have a sore throat?: No Do you have a cough?: No Do you have any weakness?: No Do you have any diarrhea?: No Are you experiencing any unusual bleeding?: No Do you have any muscle aches/pain?: No Do you have any abdominal pain?: No Are you experiencing loss of taste or smell?: No Other Medical History Have you received the Flu Vaccine for this season: No Have you received the Pneumonia Vaccine: No ROS Obtained: Yes All systems reviewed & no additional complaints except as documented Physical Exam General General appearance: alert, in no apparent distress and anxious Head Head exam: atraumatic and normocephalic Eye Eye exam: Present normal appearance, PERRL and EOMI Neck Neck exam: Present normal inspection, full ROM and trachea midline Respiratory Respiratory exam: Present normal lung sounds bilaterally; Absent respiratory distress, wheezes, stridor, accessory muscle use or prolonged expiratory phase Cardiovascular Cardiovascular exam: Present normal rhythm, tachycardia and other (Pulses equal symmetric in upper and lower extremities) Abdominal Exam Abdominal exam: Present soft; Absent distention, tenderness, guarding, rebound or pulsatile mass Extremities Exam Extremities exam: Absent edema Neurological Exam Neurological exam: Present alert, oriented X3 and CN II-XII intact; Absent motor sensory deficit Skin Skin exam: Present warm and dry; Absent diaphoresis or erythema Medical Decision Making Medical Records Medical records reviewed: Yes I reviewed the patient's medical records. Screening: Per USPSTF and CDC recommendations, given the prevalence of disease in our region, it is our hospital?s policy to screen for HIV and viral Hepatitis for all patients aged 18 and over and those with ongoing risk factors. Paresh Inquiry Pt receiving controlled substance: No Paresh was queried for this patient: No Vital Signs: 11/04/24 18:25 11/04/24 19:00 11/04/24 19:30 Temperature 98.6 F Temperature Source Oral Pulse Rate 98 H 121 H Pulse Rate [Left Radial] 99 H Respiratory Rate 16 18 24 Blood Pressure 131/88 143/84 H Blood Pressure [Right Arm] 130/86 Blood Pressure Mean [Right Arm] 100 Blood Pressure Source [Right Arm] Automatic Cuff Blood Pressure Position [Right Arm] Sitting 02 Sat by Pulse Oximetry 100 100 99 Oxygen Delivery Method Room Air Room Air Lab Data Lab Results 11/04/24 18:26: WBC 5.8, RBC 4.35, Hgb 12.6, Hct 37.4, MCV 86.0, MCH 29.0, MCHC 33.7, RDW 12.4, Plt Count 250, MPV 12.3 H, Neut % (Auto) 63.2, Lymph % (Auto) 29.9, Sutton % (Auto) 5.7, Eos % (Auto) 0.5, Baso % (Auto) 0.5, Neut # (Auto) 3.7, Lymph # (Auto) 1.7, Sutton # (Auto) 0.3, Eos # (Auto) 0.0, Baso # (Auto) 0.0, Sodium 140, Potassium 4.0, Chloride 109 H, Carbon Dioxide 20 L, Anion Gap 15.0, BUN 7, Creatinine 0.60, Estimated Creat Clear 141, Estimated GFR 121, Est GFR ( Amer) 146, Glucose 89, Calcium 9.4, Total Bilirubin 1.9 H, AST 30, ALT 19, Alkaline Phosphatase 56, Troponin I < 0.01, Total Protein 8.0, Albumin 4.7, Globulin 3.3 H, Albumin/Globulin Ratio 1.4 11/04/24 18:26 11/04/24 18:26 Orders (Tests/Meds): ED MEDICATIONS Discontinued Medications Generic Name Dose Route Start Last Admin Trade Name Satinder PRN Reason Stop Dose Admin Sodium Chloride 1,000 mls @ 999 mls/hr 11/04/24 19:11 11/04/24 19:19 Sod Chlor 0.9% 1000ml Bag IV 11/04/24 20:11 999 mls/hr .Q1H1M ONE Administration Sodium Chloride 1,000 mls @ 999 mls/hr 11/04/24 20:23 Sod Chlor 0.9% 1000ml Bag IV 11/04/24 21:23 .Q1H1M ONE Meclizine HCl 50 mg 11/04/24 20:44 11/04/24 20:47 Meclizine 25mg Tablet PO 11/04/24 20:45 Not Given ONCE ONE Ondansetron HCl 4 mg 11/04/24 19:30 11/04/24 19:38 Ondansetron 4mg/2ml Vial IV 11/04/24 19:31 4 mg ONCE ONE Administration Promethazine HCl 25 mg 11/04/24 19:11 11/04/24 19:29 Promethazine Hcl 25mg/Ml 1ml Vial IV 11/04/24 19:12 Not Given ONCE ONE Sodium Chloride 25 ml 11/04/24 19:11 11/04/24 19:29 Sodium Chloride 0.9% 25ml Bag IV 11/04/24 19:12 Not Given ONCE ONE ORDERS Category Date Time Status XR chest portable Stat Exams 11/04/24 18:31 Completed Complete Blood Count Auto Diff Stat Lab 11/04/24 18:26 Completed Comprehensive Metabolic Panel Stat Lab 11/04/24 18:26 Completed Full Resp Panel w/COVID ([facility]) Routine Lab 11/04/24 21:40 Ordered Troponin I Q3H Lab 11/04/24 21:45 Ordered Troponin I Q3H Lab 11/05/24 00:45 Ordered Troponin I Stat Lab 11/04/24 18:26 Completed Medical Decision Narrative: 24-year-old female history of tachycardia, POTS, vasovagal and orthostatic presyncope, hyperthyroidism currently on methimazole, Gilbert syndrome, anxiety, panic presenting with palpitations. Patient states that she has been having palpitations since this morning, 11/04. States that she has had multiple episodes of watery, loose diarrhea. Nausea without vomiting. Since that time, she has developed lightheadedness, presyncope, palpitations, general malaise. No fevers or chills, but just feels generally unwell. No abdominal pain. History was obtained via conversation with patient. On arrival, patient hemodynamically stable, alert, oriented x4, appropriate, GCS 15, moving all extremities spontaneously, pupils equal and reactive to light. Full physical exam performed and significant for chronically ill-appearing female who is in no distress, but appears worn out. She is tachycardic to 120 130 bpm. Lungs are clear, cardiac exam without murmurs gallops or rubs. No lower extremity edema. Abdomen soft, nontender, nondistended. Patient is speaking in full sentences. Differential includes dehydration, metabolic abnormality, endocrinologic abnormality, gastritis, gastroenteritis, PUD, urinary tract infection, among others. Patient placed on continuous cardiac monitoring and continuous pulse ox with initial blood pressure 130/86, heart rate 99, saturation 100% on room air. Independent interpretation of EKG shows sinus tachycardia [address] interval 127, QRS 77, QTc 370. Normal axis. No evidence of heart strain, ischemia. Patient was placed in observation beginning at 6:30 PM in order to give fluids, meds, reassess and determine need for admission versus home-going. The patient was provided saline, Zofran while awaiting results. Independent interpretation of results demonstrated Workup independently interpreted and significant for nonactionable CBC or chemistry. On reevaluation, patient's fluids and not been running after about an hour. IV repositioned, running freely. On reevaluation, after fluids and p.o. challenge, I stood patient up as her heart rate had significantly improved to the low 90s. Upon standing, patient's heart rate reached nearly 150. At this time, I feel patient is appropriate for admission. Total observation time 3.5 hours. Likely orthostatic versus vasovagal presyncope, labs negative, I feel patient is just tenuous in terms of changes from baseline since diagnosis of POTS, etc. Because patient high risk for clinical decompensation, deemed appropriate for inpatient admission. Results were relayed to patient who voiced understanding and patient was agreeable to inpatient admission and management. Patient was admitted to the hospital for further definitive management. [employer] disclaimer Much of this encounter note is an electronic associate professor of law spoken language to printed text. Electronic associate professor of law of the spoken language may permit errors. Although I have reviewed the note, some errors may still exist. Critical Care Critical Care Time Critical Care Time: No
[2024-11-04 20:22] LABS: Basophils % 0.5 % (0.1-2.0); Eosinophils % 0.5 % (0.1-12.0); Hematocrit 37.4 % (37.0-47.0); Hemoglobin 12.6 g/dL (12.2-16.2); Lymphocytes # 1.7 K/mm3 (0.7-4.5); Lymphocytes % 29.9 % (10-50); Mean Corpuscular HGB Conc 33.7 g/dL (31.8-35.4); Mean Platelet Volume 12.3 fl (7.4-10.4); Monocytes # 0.3 K/mm3 (0.1-1.0); Monocytes % 5.7 % (1.7-9.3); Neutrophils # 3.7 K/mm3 (1.8-7.8); Neutrophils % 63.2 % (37.0-80.0); Nucleated Red Blood Cells # 0 10^3/uL; Nucleated Red Blood Cells % 0 %; Platelet Count 250 K/mm3 (142-424); Red Blood Count 4.35 M/mm3 (4.20-5.40); Red Cell Distribution Width 12.4 % (11.5-17.5); White Blood Count 5.8 K/mm3 (4.8-10.8)
[2024-11-04 21:46] LABS: Adenovirus,PCR Not Detected (NotDetected); Bordetella Pertussis Not Detected (NotDetected); Chlamydophila Pneumoniae, PCR Not Detected (NotDetected); Coronavirus 19, PCR Not Detected (NotDetected); Coronavirus 229E Not Detected (NotDetected); Coronavirus NL63 Not Detected (NotDetected); Coronavirus OC43 Not Detected (NotDetected); Coronovirus HKU1,PCR Not Detected (NotDetected); Human Metapneumovirus Not Detected (NotDetected); Influenza A, PCR Not Detected (NotDetected); Influenza AH1, 2009 Not Detected (NotDetected); Influenza AH1, PCR Not Detected (NotDetected); Influenza AH3,PCR Not Detected (NotDetected); Influenza B, PCR Not Detected (NotDetected); Mycoplasma Pneumoniae, PCR Not Detected (NotDetected); Parainfluenza 1, PCR Not Detected (NotDetected); Parainfluenza 2, PCR Not Detected (NotDetected); Parainfluenza 3, PCR Not Detected (NotDetected); Parainfluenza 4, PCR Not Detected (NotDetected); Respiratory Syncytial Virus Not Detected (NotDetected); Rhinovirus/Enterovirus Not Detected (NotDetected)
--- NOTE | 2024-11-04 21:46 | P.HP_ITS ---
<Statement entered by Earle Gamble MD - 11/05/24 14:07> I personally examined the patient and agree with the plan of care as outlined by the MANAGER OF FINANCIAL. History of Present Illness *Admission Date: 11/04/24 *Reason for visit:: Presyncope *History of present illness: A 24-year-old female with a history of tachycardia, postural orthostatic tachycardia syndrome (POTS), vasovagal and orthostatic presyncope, hyperthyroidism currently on methimazole, Gilbert syndrome, anxiety, and panic disorder presents with palpitations. The patient reports that since this morning, November 04, she has experienced palpitations accompanied by multiple episodes of watery, loose diarrhea and nausea without vomiting. She subsequently developed lightheadedness, presyncope, palpitations, and general malaise. She denies fevers, chills, or abdominal pain but feels generally unwell. On examination, the patient is hemodynamically stable, alert, oriented x4, with a Dale Coma Scale of 15. She is moving all extremities spontaneously, with pupils equal and reactive to light. Vital signs include blood pressure 130/86 mmHg, heart rate 99 bpm, and oxygen saturation 100% on room air. Physical exam reveals a chronically ill-appearing female in no distress but appearing worn out. She is tachycardic with heart rate ranging from 120?130 bpm on initial assessment. Lungs are clear, and cardiac exam shows no murmurs, gallops, or rubs. There is no lower extremity edema. Abdomen is soft, nontender, and nondistended. The patient is speaking in full sentences. Diagnostic workup includes an electrocardiogram, independently interpreted, showing sinus tachycardia at 106 bpm with TN interval 127 ms, QRS 77 ms, QTc 370 ms, normal axis, and no evidence of heart strain or ischemia. Laboratory results are notable for mildly elevated total bilirubin (1.9 mg/dL), consistent with Gilbert syndrome, mildly low carbon dioxide (20 mmol/L), and elevated chloride (109 mmol/L). Complete blood count and remaining chemistry panel are nonactionable, with normal white blood cell count (5.8 x10?/?L), hemoglobin (12.6 g/dL), creatinine (0.60 mg/dL), and glucose (89 mg/dL). Troponin is negative (<0.01 ng/mL). Treatments implemented in the emergency department include intravenous normal saline and ondansetron (Zofran) for nausea while awaiting results. The patient was placed in observation starting at 6:30 PM for fluid administration, medication, and reassessment. After approximately one hour, the intravenous line was found not to be running, was repositioned, and fluids resumed freely. On reevaluation after fluids and oral challenge, the patient?s heart rate improved to the low 90s. However, upon standing, her heart rate increased to nearly 150 bpm, reproducing presyncope. Total observation time was 3.5 hours. The patient was admitted for inpatient management due to persistent orthostatic tachycardia and high risk of decompensation. [facility] Disclaimer: The information contained in this section may have been updated after the patient was seen, as this information can be updated by other users. Medical History Adrenal disorder POTS (postural orthostatic tachycardia syndrome) Anxiety disorder affecting , antepartum Norovirus Enteritis due to Norovirus Elevated brain natriuretic peptide (BNP) level Gilbert's disease of unknown anatomic location Diarrhea Chest pain Herpes simplex of female genitalia Tobacco dependence syndrome Surgical History Hx of cholecystectomy H/O hand surgery Hx of dilation and curettage Hx of tonsillectomy Family History Other Family history of myocardial infarction Family history of stroke Social History Smoking Status: Never smoker second hand exposure: Yes alcohol intake: former substance use type: denies use current occupational status: unemployed Travel in the last 8 weeks: None housing: house Have you lived/traveled outside US in past 30 days?: No Contact w/someone who lives/traveled outside US past 30 days?: No Exposure to someone with infectious disease in past 14 days?: No Do you have a fever (greater than 100.4 F or 38 C)?: No Have you tested positive for COVID-19: No Exposed to someone with COVID-19 in past 14 days?: No Do you have a sore throat?: No Do you have a cough?: No Do you have any weakness?: No Do you have any diarrhea?: No Are you experiencing any unusual bleeding?: No Do you have any muscle aches/pain?: No Do you have any abdominal pain?: No Are you experiencing loss of taste or smell?: No Other Medical History Have you received the Flu Vaccine for this season: No Have you received the Pneumonia Vaccine: No Review of Systems Review of Systems Review of systems (narrative): 13 point review of systems negative septa as listed in HPI Meds Home Medications and Allergies Home Medications ?Medication ?Instructions ?Recorded ?Confirmed ?Type blood sugar diagnostic (OneTouch #10 ea 08/31/24 11/04/24 History Verio test strips) blood-glucose meter (XylogenicsTouch #1 ea 08/31/24 11/04/24 History Verio Reflect Meter) famotidine 20 mg tablet 20 mg PO DAILY 08/31/24 11/04/24 History lancets 33 gauge (OneTouch Delica #100 ea 08/31/24 11/04/24 History Plus Lancet) buspirone 5 mg tablet 5 mg PO HS 10/17/24 11/04/24 History propranolol 10 mg tablet 10 mg PO BID 10/17/24 11/04/24 History cholecalciferol (vitamin D3) 50 50 mcg PO DAILY 11/04/24 11/04/24 History mcg (2,000 unit) capsule methimazole 10 mg tablet 10 mg PO DAILY #30 tabs 11/04/24 11/04/24 Rx New Prescriptions to Start Prescriptions: Allergies Allergy/AdvReac Type Severity Reaction Status Date / Time cinnamon Allergy Severe Swelling Verified 11/04/24 08:50 of Lip/Tongue/Throat amoxicillin (From Augmentin) Allergy Verified 11/04/24 08:50 clavulanic acid (From Allergy Verified 11/04/24 08:50 Augmentin) Penicillins Allergy Verified 11/04/24 08:50 Exam Data for Last 24 hours Vital signs and Labs for Last 24 Hours: Temp Pulse Resp BP Pulse Ox O2 Del Method 98.6 F 121 H 24 143/84 H 99 Room Air 11/04/24 18:25 11/04/24 19:30 11/04/24 19:30 11/04/24 19:30 11/04/24 19:30 11/04/24 19:00 Laboratory Results - last 24 hr 11/04/24 18:26: WBC 5.8, RBC 4.35, Hgb 12.6, Hct 37.4, MCV 86.0, MCH 29.0, MCHC 33.7, RDW 12.4, Plt Count 250, MPV 12.3 H, Neut % (Auto) 63.2, Lymph % (Auto) 29.9, [place] % (Auto) 5.7, Eos % (Auto) 0.5, Baso % (Auto) 0.5, Neut # (Auto) 3.7, Lymph # (Auto) 1.7, [place] # (Auto) 0.3, Eos # (Auto) 0.0, Baso # (Auto) 0.0, Sodium 140, Potassium 4.0, Chloride 109 H, Carbon Dioxide 20 L, Anion Gap 15.0, BUN 7, Creatinine 0.60, Estimated Creat Clear 141, Estimated GFR 121, Est GFR ( Amer) 146, Glucose 89, Calcium 9.4, Total Bilirubin 1.9 H, AST 30, ALT 19, Alkaline Phosphatase 56, Troponin I < 0.01, Total Protein 8.0, Albumin 4.7, Globulin 3.3 H, Albumin/Globulin Ratio 1.4 I & O for Last 24 hours: Intake & Output 11/01/24 11/02/24 11/03/24 11/04/24 23:59 23:59 23:59 23:59 Weight 63.049 kg Constitutional Constitutional: no acute distress *Routine HEENT Exam Head: Present normocephalic Eye: Present EOMI and PERRL ENT: Present mucous membranes moist *Routine Neck Exam Neck: Present supple; Absent lymphadenopathy *Routine Respiratory Exam Respiratory: Present CTA bilaterally *Routine Cardiovascular Exam Cardiovascular: Present tachycardia *Routine Abdominal Exam Abdominal: Present soft and normoactive bowel sounds; Absent tenderness *Routine Rectal Exam Rectal:: deferred *Routine Genitalia Exam Genitalia:: deferred *Routine Extremities Exam Extremities: Absent cyanosis, clubbing or edema *Routine Skin Exam Skin: Present warm; Absent rash *Routine Neurological Exam Neurological: Present alert and oriented X3 Assessment and Plan *Assessment and plan (1) Orthostatic syncope: Status: Acute Category: Medical Code(s): I95.1 - Orthostatic hypotension (2) Tachycardia: Status: Acute Category: Medical Code(s): R00.0 - Tachycardia, unspecified (3) Autonomic dysfunction: Status: Acute Category: Medical Code(s): G90.9 - Disorder of the autonomic nervous system, unspecified (4) Hyperthyroidism: Status: Acute Category: Medical Code(s): E05.90 - Thyrotoxicosis, unspecified without thyrotoxic crisis or storm (5) Vomiting and diarrhea: Status: Acute Category: Medical Code(s): R11.10 - Vomiting, unspecified; R19.7 - Diarrhea, unspecified (6) Weakness: Status: Acute Category: Medical Code(s): R53.1 - Weakness (7) Heart palpitations: Status: Acute Category: Medical Code(s): R00.2 - Palpitations Plan Orthostatic Tachycardia/Presyncope in Postural Orthostatic Tachycardia Syndrome (POTS): Palpitations, lightheadedness, and presyncope with heart rate rising from low 90s to nearly 150 bpm upon standing, consistent with POTS exacerbation, now with sinus arrhythmia and supraventricular premature complexes (SPVCs) on repeat EKG. * Admit to hospital medicine service for inpatient monitoring and POTS optimization. * Continue intravenous normal saline at 100 mL/hour to improve intravascular volume, targeting 1?2 L over 24 hours. * Initiate midodrine 5 mg oral three times daily to support blood pressure and reduce orthostatic symptoms, titrating as tolerated. * Monitor orthostatic vital signs (supine and standing heart rate, blood pressure) every 8 hours. * Consult cardiology to evaluate SPVCs and POTS-related tachycardia; consider low-dose beta-jazz (e.g., propranolol 10 mg oral three times daily) if SPVCs or tachycardia persist after hydration. * consider thigh-high compression stockings to reduce venous pooling. Sinus Arrhythmia with Supraventricular Premature Complexes (SPVCs): New finding on repeat EKG, potentially related to POTS, dehydration, or hyperthyroidism, with no evidence of ischemia or heart strain. * Continue cardiac monitoring to detect further arrhythmias or SPVC frequency. * Consult cardiology as above for evaluation; defer antiarrhythmic therapy unless SPVCs become symptomatic or frequent. * Recheck electrolytes (magnesium, potassium) in 12 hours, as imbalances can contribute to ectopy, though current potassium (4.0 mmol/L) is normal. * Repeat EKG in 24 hours or sooner if palpitations worsen. Dehydration Secondary to Diarrhea and Poor Oral Intake: Multiple episodes of watery diarrhea and nausea with minimal oral intake, contributing to orthostatic symptoms and mild metabolic abnormalities (low CO2 20 mmol/L, elevated chloride 109 mmol/L). * Continue intravenous normal saline as above until orthostatic symptoms improve and oral intake is adequate. * Administer ondansetron 4 mg IV every 8 hours as needed for nausea to support oral rehydration. * Start oral rehydration solution (500 mL twice daily) once nausea resolves, encouraging small, frequent sips. * Monitor stool frequency and consistency; consider loperamide 2 mg oral after each loose stool (maximum 8 mg/day) if diarrhea persists beyond 24 hours. * Recheck comprehensive metabolic panel in 12 hours to ensure resolution of CO2 and chloride abnormalities. * Consult gastroenterology if diarrhea continues or worsens to evaluate for infectious (e.g., viral, bacterial) or inflammatory causes. Hyperthyroidism (Controlled on Methimazole): Known hyperthyroidism with no signs of thyroid storm (no fever, normal mentation, stable vitals), but palpitations, tachycardia, and SPVCs may suggest suboptimal control; repeat * Continue methimazole at home dose * Order thyroid function tests (TSH, free T4, free T3) to assess control, given tachycardia and arrhythmia. * Recheck thyroid panel in 24 hours or sooner if palpitations escalate. * methimazole dose adjustment if thyroid function tests are abnormal. * Monitor for signs of thyroid storm (fever, altered mental status), though unlikely at present. Anxiety and Panic Disorder: History of anxiety and panic, potentially contributing to palpitations and malaise, though patient remains oriented and appropriate. * Continue home anxiolytic or antidepressant medications * Encourage non-pharmacologic techniques (deep breathing, mindfulness) with nursing support. Gilbert Syndrome: Mildly elevated total bilirubin (1.9 mg/dL), consistent with known Gilbert syndrome, without evidence of liver dysfunction (normal AST 30 U/L, ALT 19 U/L). * Observe without intervention, as elevation is expected and benign. * Monitor liver function tests during admission only if new symptoms (e.g., jaundice, abdominal pain) arise. * Educate patient that bilirubin elevation is unrelated to current symptoms. Disposition: * Maintain continuous cardiac monitoring and pulse oximetry during admission. * Check vital signs every 4 hours, including orthostatic measurements. * Offer acetaminophen 650 mg oral every 6 hours as needed for malaise or discomfort. * optimize high-sodium, high-fluid diet for POTS. * Educate patient and family on POTS exacerbation, hydration importance, and inpatient plan.
--- NOTE | 2024-11-04 21:50 | PC.NURSE ---
called house supp. for pt admission
--- NOTE | 2024-11-04 23:00 | PC.NURSE ---
Patient arrived to floor via stretcher from ED at 22:57.
[2024-11-04] MEDS: LACTATED RINGERS 1000ML 1,000 ML 100 ML IV (23:56)
[2024-11-05] VITALS (15 sets, daily range): BP systolic 104–178; BP diastolic 43–88; PULSE 75–150; RESP 12–21; TEMP 36.5–36.8; O2SAT 93–100; BMI 23.1
--- NOTE | 2024-11-05 00:13 | ECG_ITS ---
APPROVED REPORT Exam: Resting ECG HR:92 bpm ECG Measurements Heart Rate 92 AXES ND 163 P 65 QRSd 82 QRS 81 QT 327 T -14 QTc 377 Conclusion SINUS RHYTHM WITH FREQUENT SUPRAVENTRICULAR PREMATURE COMPLEXES NONSPECIFIC ST & T-WAVE ABNORMALITY ABNORMAL ECG UNCONFIRMED REPORT Electronically signed by : Prem Grant MD 11/05/2024 20:19:15
[2024-11-05 01:06] LABS: Troponin I < 0.01 ng/ml (0.00-0.034)
--- NOTE | 2024-11-05 03:28 | PC.NURSE ---
Pt had episode of syncope while [place] [facility] Heart rate increased to around 150 on telemetry before pt lost consciousness. Both RN and ENVIRONMENTAL LAW PROFESSOR were holding onto the patient at the time, as the pt stated her heart was racing . Pt was then moved back to bed where she woke up. Hospitalist notified and EKG was obtained. Pt is AOx4, denies pain. 20 R AC with LR @ 100 mL/hr. Pt is on telemetry. Respirations even and unlabored. Resting in low, locked bed with call light in reach. Significant other at bedside.
[2024-11-05 07:06] LABS: Basophils % 0.6 % (0.1-2.0); Eosinophils % 0.6 % (0.1-12.0); Hematocrit 30.6 % (37.0-47.0); Lymphocytes % 38.3 % (10-50); Mean Corpuscular HGB Conc 32.7 g/dL (31.8-35.4); Mean Corpuscular Hemoglobin 28.3 pg (27.0-31.2); Mean Corpuscular Volume 86.7 fl (81-99); Mean Platelet Volume 11.8 fl (7.4-10.4); Monocytes # 0.3 K/mm3 (0.1-1.0); Monocytes % 6.4 % (1.7-9.3); Neutrophils # 2.8 K/mm3 (1.8-7.8); Neutrophils % 53.9 % (37.0-80.0); Nucleated Red Blood Cells # 0 10^3/uL; Nucleated Red Blood Cells % 0 %; Platelet Count 172 K/mm3 (142-424); Red Blood Count 3.53 M/mm3 (4.20-5.40); Red Cell Distribution Width 12.5 % (11.5-17.5); Red Cell Distribution Width-SD 39.5 fL; White Blood Count 5.1 K/mm3 (4.8-10.8)
[2024-11-05 07:23] LABS: Anion Gap 11.4 mEq/L (5-15); Blood Urea Nitrogen 5 mg/dl (7-17); Calcium 8.4 mg/dl (8.4-10.2); Carbon Dioxide 21 mmol/L (22.0-30.0); Chloride 109 mmol/L (98-107); Creatinine Clearance Estimated 121 mL/min (50-200); Estimated Glomerular Filt Rate 101 ml/min (>60); GFR (African American) 122 ML/MIN (>60); Glucose 84 mg/dl (74-100); Magnesium 1.9 mg/dl (1.6-2.3); Phosphorous 3.7 mg/dl (2.5-4.5); Potassium 3.4 mmoL/L (3.5-5.1); Sodium 138 mmol/L (136-145)
[2024-11-05 07:28] LABS: Hemoglobin 10.1 g/dL (12.2-16.2)
[2024-11-05 07:37] LABS: Free T4 (Free Thyroxine) 3.01 ng/dl (0.78-2.19)
[2024-11-05 07:51] LABS: Thyroid Stimulating Hormone < 0.02 uIU/mL (0.465-4.68)
--- NOTE | 2024-11-05 08:20 | PC.NURSE ---
At approx. 0800 the patient stated that she needed to have a bowel movement and wanted to try to use the bedside commode. This RN had LESLIE Saldivar come to patients room to help get her to the bedside. After the patient got to the bedside commode she stated that she felt like her heart was, beating out of her chest . This RN encouraged patient to take deep breaths in threw her nose and out through her mouth to help cam her. Patient went limp and passed out while on the bedside commode. This RN and the SRNA had the patient under the arms and calmly talked to the patient to bring her to. Patient came to and was very tearful stating, this is the worst I have ever been . Patient was helped back to bed and stated that she was feeling better. Patient provided fresh ice water and helped onto bedpan. Call light within reach. long wall mining machine tender made aware and made aware.
[2024-11-05 08:29] LABS: Iron 47 ug/dL (37-170)
[2024-11-05 08:40] LABS: Total Iron Binding Capacity 330 ug/dL (265-497)
--- NOTE | 2024-11-05 08:41 | PC.NURSE ---
patient has severe pots symptoms this am and cannot ambulate in room
[2024-11-05 08:44] LABS: 25-OH Vitamin D, Total 18.7 ng/mL (30-100)
[2024-11-05 08:50] LABS: T4 (Thyroxine) 13.4 ug/dl (5.53-11.0)
[2024-11-05 09:08] LABS: Ferritin 5.15 ng/ml (6.24-137)
[2024-11-05] MEDS: PROPRANOLOL 20MG TAB 10 MG PO ×2 (09:11→18:20)
[2024-11-05] MEDS: CHOLECALCIFEROL 1,000 UNITS (25MCG) TABLET 50 MCG PO (09:11)
[2024-11-05] MEDS: POTASSIUM CHLORIDE 20MEQ TAB 40 MEQ PO ×2 (09:11→14:01)
[2024-11-05] MEDS: FAMOTIDINE 20MG TABLET 20 MG PO (09:11)
[2024-11-05 09:17] LABS: Vitamin B12 334 pg/mL (239-931)
[2024-11-05] MEDS: HYDROCORTISONE SOD SUCCINATE 100MG VIAL 200 MG IV (09:17)
--- NOTE | 2024-11-05 09:42 | HMH.PHAINT1 ---
Pharmacy Intervention Comments: MEDICATION RECONCILIATION COMPLETED ON PATIENT USING EXTERNAL FILL HISTORY FROM PHARMACY AND LIST FROM PCP OFFICE. -ZAIRA YANEZ, FIDENCIOD
--- NOTE | 2024-11-05 09:52 | PC.NURSE ---
pt moved to room 219 from room 207 by bed. pt is settled and on the monitor. vitals were cycled. no requests were voiced at this time. call light is within reach.
[2024-11-05] MEDS: IRON SUCROSE COMPLEX 200 MG in 0.9 % SODIUM CHLORIDE 100 ML 220 MG IV (11:29)
[2024-11-05] MEDS: METHIMAZOLE 10 MG 10 EACH PO ×2 (11:31→15:42)
--- NOTE | 2024-11-05 16:05 | PC.NURSE ---
received v/o from to obtain orthostatic bp's and if pt is requesting to go home (during md assessment pt mentioned missing her children and wanting to go home) to ambulate her in the halls. spoke with pt who was agreeable to orthostatics as well as attempting to ambulate. 1501 bp lying supine 114/68 hr 81 1502 bp sitting on side of bed 122/80 hr 98 1503 bp standing at bedside with staff 124/86 pt denied any dizziness or lightheadedness during orthostatic bps 1506 pt ambulated with staff approx 25-30 feet with staff and wheelchair following pt. pt hr at start of ambulation was in the 90's. pt began to feel dizzy when hr was in the 130's and when hr reached the 140's pt noted to zone out face became pale and her knees buckled. staff standing beside pt and grasping her arms. pt was eased to the wheelchair by staff. pt was still able to hold her head up when she was seated in the wc. pt began to speak to staff again when she was seated for less than 10seconds. pt bp when sitting down was 119/88 and hr had returned to 98
--- NOTE | 2024-11-05 16:08 | P.PN_ITS ---
Subjective *Date: 11/05/24 *Time: 16:08 Exam Data for Last 24 hours Vital signs and Labs for Last 24 Hours: Temp Pulse Resp BP Pulse Ox O2 Del Method 98.3 F 122 H 21 119/88 93 L Room Air 11/05/24 11:46 11/05/24 15:54 11/05/24 15:54 11/05/24 15:54 11/05/24 15:54 11/05/24 15:54 Laboratory Results - last 24 hr 11/04/24 18:26: WBC 5.8, RBC 4.35, Hgb 12.6, Hct 37.4, MCV 86.0, MCH 29.0, MCHC 33.7, RDW 12.4, Plt Count 250, MPV 12.3 H, Neut % (Auto) 63.2, Lymph % (Auto) 29.9, [place] % (Auto) 5.7, Eos % (Auto) 0.5, Baso % (Auto) 0.5, Neut # (Auto) 3.7, Lymph # (Auto) 1.7, [place] # (Auto) 0.3, Eos # (Auto) 0.0, Baso # (Auto) 0.0, Sodium 140, Potassium 4.0, Chloride 109 H, Carbon Dioxide 20 L, Anion Gap 15.0, BUN 7, Creatinine 0.60, Estimated Creat Clear 141, Estimated GFR 121, Est GFR ( Amer) 146, Glucose 89, Calcium 9.4, Total Bilirubin 1.9 H, AST 30, ALT 19, Alkaline Phosphatase 56, Troponin I < 0.01, Total Protein 8.0, Albumin 4.7, Globulin 3.3 H, Albumin/Globulin Ratio 1.4 11/04/24 21:42: Chlamy pneumoniae PCR Not detected, Adenovirus (PCR) Not detected, B. pertussis DNA (PCR) Not detected, Coronavirus OC43 (PCR) Not detected, Coronavirus HKU1 (PCR) Not detected, Coronavirus 229E (PCR) Not detected, SARS-CoV-2 (PCR) Not detected, Coronavirus NL63 (PCR) Not detected, Human Metapneumovir PCR Not detected, Influenza A (H1) PCR Not detected, Influ A (H1N1/09) PCR Not detected, Influenza A (H3) PCR Not detected, Influenza Type A (PCR) Not detected, Influenza Type B (PCR) Not detected, M. pneumoniae (PCR) Not detected, Parainfluenza 1 (PCR) Not detected, Parainfluenza 2 (PCR) Not detected, Parainfluenza 3 (PCR) Not detected, Parainfluenza 4 (PCR) Not detected, RSV (PCR) Not detected, Entero/Rhino (PCR) Not detected 11/05/24 00:37: Troponin I < 0.01 11/05/24 06:15: WBC 5.1, RBC 3.53 L, Hgb 10.1 L D, Hct 30.6 L, MCV 86.7, MCH 28.3, MCHC 32.7, RDW 12.5, Plt Count 172 D, MPV 11.8 H, Neut % (Auto) 53.9, Lymph % (Auto) 38.3, [place] % (Auto) 6.4, Eos % (Auto) 0.6, Baso % (Auto) 0.6, Neut # (Auto) 2.8, Lymph # (Auto) 2.0, [place] # (Auto) 0.3, Eos # (Auto) 0.0, Baso # (Auto) 0.0, Sodium 138, Potassium 3.4 L, Chloride 109 H, Carbon Dioxide 21 L, Anion Gap 11.4, BUN 5 L D, Creatinine 0.70, Estimated Creat Clear 121, Estimated GFR 101, Est GFR ( Amer) 122, Glucose 84, Calcium 8.4, Phosphorus 3.7, Magnesium 1.9, Iron 47, TIBC 330, Iron Saturation 14.44023 L, Ferritin 5.15 L D, Vitamin B12 334, 25-OH Vitamin D Total 18.7 L, Folate 14.40, TSH < 0.02 L, Free T4 3.01 H, Thyroxine (T4) 13.4 H I & O for Last 24 hours: Intake & Output 11/02/24 11/03/24 11/04/24 11/05/24 23:59 23:59 23:59 23:59 Intake Total 345 / 345 Output Total 0 / 0 850 / 850 Balance 0 / 0 -505 / -505 Weight 63.049 kg 63.049 kg Assessment and Plan *Assessment and plan (1) Hyperthyroidism: Status: Acute Category: Medical Code(s): E05.90 - Thyrotoxicosis, unspecified without thyrotoxic crisis or storm Plan Francy Yazidi is a 24-year-old female who presented with palpitations, lightheadedness, diarrhea, presyncope and was admitted for hyperthyroidism and POTS. #Hyperthyroid disorder #Suspected thyroiditis #History of postural orthostatic tachycardia syndrome (POTS) ? Patient is 4 months , and unfortunately seems to have developed thyroiditis. Previous TSH prior to normal. ? She states she has been struggling with longstanding POTS and is currently on propranolol 10 mg twice daily. Has upcoming appointment with [facility]. ? Patient has also been experiencing weight loss, palpitations, lightheadedness, diarrhea for a few months since . ? Recently admitted to [facility] ICU 2 weeks ago for hypothyroid disorder who consulted endocrinology recommending methimazole 20 mg twice daily, continue propranolol. However, patient states manager user interface from day after discharge and recommended against methimazole and following up in their clinic on 11/11/2024. She did not get more information than this. Patient developed symptoms soon after discharge, PCP started methimazole 10 mg daily which patient has been adherent. ? TSH less than 0.02, free T4 3.01. Free T3 pending. At this time, patient clearly has a hyperthyroid condition that needs to be treated especially with significant symptoms. ? Thyroid peroxidase antibodies, thyroglobulin levels elevated in September. Follow-up thyroid-stimulating, thyroid receptor antibodies. ? ECHO with [place] did not indicate structural or functional disease. ? Hypothyroid condition likely exacerbating POTS. Patient syncopized twice with ambulation today in the absence of orthostatic hypotension, indicating POTS. ? Initiated methimazole 10 mg 3 times daily. Continue propranolol 10 mg twice daily. Given hydrocortisone 200 mg once, will hold off on continuing given low suspicion for thyroid storm. ? Started salt tab 1000 mg daily to increase intravascular volume for POTS. Plan to start fludrocortisone 0.1 mg tomorrow for POTS after morning cortisol, ACTH levels. ? Started normal saline at 125 mL/h. ? Follow-up morning cortisol, ACTH to rule out adrenal insufficiency. ? Of note, patient states symptoms might have worsened after copper IUD placement. I have low suspicion of this as copper IUD only causes local treatment/inflammation. SCHOOL BUS DISPATCHER graciously offered to consult tomorrow. ? Continuous cardiac telemetry #Iron deficiency anemia #Low vitamin D ? Ferritin 5.15. Vitamin D level 18.7. Hemoglobin 10.1. B12, folate levels normal. ? Given Venofer 200 mg. ? Started vitamin D3 4000 mcg daily. Full code DVT prophylaxis: Lovenox 40 mg
--- NOTE | 2024-11-05 16:49 | PC.NURSE ---
All patient care and documentation completed by Fabiola WILHELM was completed under my direct supervision. Claudia Alamo RN
[2024-11-05] MEDS: 0.9 % SODIUM CHLORIDE 1000ML 1,000 ML 125 ML IV (17:20)
--- NOTE | 2024-11-05 18:01 | ECG_ITS ---
APPROVED REPORT Exam: Resting ECG HR:169 bpm ECG Measurements Heart Rate 169 AXES QRSd 77 QRS 72 QT 248 T 59 QTc 340 Conclusion SUPRAVENTRICULAR TACHYCARDIA NONSPECIFIC ST & T-WAVE ABNORMALITY CRITICAL TEST RESULT UNCONFIRMED REPORT Electronically signed by : Prem Grant MD 11/08/2024 08:49:37
[2024-11-05] MEDS: LORazepam 0.5MG TABLET 0.5 MG PO (18:10)
[2024-11-05] MEDS: ONDANSETRON 4MG/2ML VIAL 4 MG IV (18:15)
[2024-11-05] MEDS: METOPROLOL TARTRATE 5MG/5ML VIAL 5 MG IV (18:22)
--- NOTE | 2024-11-05 18:30 | ECG_ITS ---
APPROVED REPORT Exam: Resting ECG HR:126 bpm ECG Measurements Heart Rate 126 AXES [place] 133 P 76 QRSd 77 QRS 70 QT 283 T 66 QTc 358 Conclusion SINUS TACHYCARDIA WITH OCCASIONAL ECTOPIC PREMATURE COMPLEXES MODERATE ST DEPRESSION [0.05+ mV ST DEPRESSION] ABNORMAL ECG UNCONFIRMED REPORT Electronically signed by : Prem Grant MD 11/05/2024 20:19:01
--- NOTE | 2024-11-05 18:37 | EXP.EVENT.NO ---
Patient went into SVT at approximately 6:10 PM with HR sustaining >150. Improved with vagal maneuvers including blowing into a syringe, carotid massage, and modified Valsalva maneuver. HR improved to the 120s to 130s, sinus at this time. IV Lopressor 5 mg was administered with improvement in the heart rate to 80-110. Propranolol was increased to 10 mg 3 times daily. Methimazole 10 mg 3 times daily.
[2024-11-05 18:40] LABS: POC Glucose,Bedside 129 (70-110)
--- NOTE | 2024-11-05 18:44 | PC.NURSE ---
175 pt hr noted to go from mid 90's to 130's. 175 upon entering room pt states that she is anxious, clammy and her arms are going numb. 1755 notified face to face that pt hr is elevated and feeling the way she did last night 1758 Dr Gamble called again as pt hr again increased to the 150's-160's. pt noted to be shaking in bed and c/o being hot 1758 fsbs 129 180 EKG obtained. SVT noted on ekg, notified, signed off on ekg 1807 valsalve maneuver attempting by blowing through syringe 1808 carotid massage by 1809 pt c/o nausea. zofran 4mg ordered by 181 ordered ativan po 0.5mg for anxiety 1819 propranolol 10mg ordered now 1819 carotid massage by 1821 valsalve w/ flip 182 valsalve w/ flip 183 ekg 183 lopressor 5mg iv x1 pt hr noted to be in the upper 90's at 183 when staff left room
[2024-11-05] MEDS: BUSPIRONE HCL 5 MG TABLET PO (20:42)
[2024-11-05] MEDS: PROPRANOLOL 20MG TAB 20 MG PO (20:42)
[2024-11-06] VITALS (15 sets, daily range): BP systolic 95–160; BP diastolic 41–83; PULSE 70–112; RESP 12–22; TEMP 36.6–37.6; O2SAT 98–100; BMI 23.3; BMI 23.6
[2024-11-06] MEDS: 0.9 % SODIUM CHLORIDE 1000ML 1,000 ML 125 ML IV ×2 (01:33→09:19)
--- NOTE | 2024-11-06 06:10 | PC.NURSE ---
patient has rested well tonight. stated the ativan she took earlier really helped relax her throughout the night. Patient has not ambulated on this shift, however when moving in bed she tachs up to 120's but doesn't maintain over a minute. Otherwise the patient has remained 70's-90's. Patient states she has felt tired and slept most of the shift. Using the bedpan and not getting up to the bedside commode at this time. hypotensive this shift at times, see VS.
[2024-11-06 07:58] LABS: Basophils % 0.5 % (0.1-2.0); Eosinophils % 0.4 % (0.1-12.0); Hematocrit 29.1 % (37.0-47.0); Hemoglobin 9.5 g/dL (12.2-16.2); Lymphocytes # 2.2 K/mm3 (0.7-4.5); Mean Corpuscular HGB Conc 32.6 g/dL (31.8-35.4); Mean Corpuscular Hemoglobin 28.5 pg (27.0-31.2); Mean Corpuscular Volume 87.4 fl (81-99); Mean Platelet Volume 11.9 fl (7.4-10.4); Monocytes # 0.4 K/mm3 (0.1-1.0); Monocytes % 7.6 % (1.7-9.3); Neutrophils # 2.9 K/mm3 (1.8-7.8); Neutrophils % 51.5 % (37.0-80.0); Nucleated Red Blood Cells # 0 10^3/uL; Nucleated Red Blood Cells % 0 %; Platelet Count 174 K/mm3 (142-424); Red Blood Count 3.33 M/mm3 (4.20-5.40); Red Cell Distribution Width 12.6 % (11.5-17.5); Red Cell Distribution Width-SD 40.3 fL; White Blood Count 5.5 K/mm3 (4.8-10.8)
[2024-11-06 08:17] LABS: Albumin Level 3.2 g/dl (3.5-5.0); Chloride 115 mmol/L (98-107); Sodium 142 mmol/L (136-145)
[2024-11-06 08:18] LABS: Potassium 3.3 mmoL/L (3.5-5.1)
[2024-11-06 08:20] LABS: Alanine Aminotransferase 14 U/L (12-78); Albumin/Globulin Ratio 1.1 (1.1-1.8); Alkaline Phosphatase 41 U/L (38-126); Anion Gap 11.3 mEq/L (5-15); Aspartate Amino Transferase 16 U/L (14-36); Bilirubin,Total 1.2 mg/dl (0.2-1.3); Blood Urea Nitrogen 5 mg/dl (7-17); Calcium 8.3 mg/dl (8.4-10.2); Carbon Dioxide 19 mmol/L (22.0-30.0); Creatinine Clearance Estimated 144 mL/min (50-200); Estimated Glomerular Filt Rate 121 ml/min (>60); GFR (African American) 146 ML/MIN (>60); Globulin 2.8 g/dL (1.3-3.2); Glucose 79 mg/dl (74-100)
[2024-11-06] MEDS: ENOXAPARIN 40MG/0.4ML SYRINGE 40 MG SUBCUT (09:06)
[2024-11-06] MEDS: FLUDROCORTISONE 0.1MG TABLET 0.1 MG PO (09:07)
[2024-11-06] MEDS: SODIUM CHLORIDE 1,000MG TABLET 1000 MG PO (09:07)
[2024-11-06] MEDS: PROPRANOLOL 20MG TAB 20 MG PO ×3 (09:07→22:55)
[2024-11-06] MEDS: FAMOTIDINE 20MG TABLET 20 MG PO (09:07)
[2024-11-06] MEDS: CHOLECALCIFEROL 1,000 UNITS (25MCG) TABLET 100 MCG PO (09:07)
[2024-11-06] MEDS: ONDANSETRON 4MG/2ML VIAL 4 MG IV (09:13)
--- NOTE | 2024-11-06 09:22 | PC.NURSE ---
no stairs on unit to access stair use
--- NOTE | 2024-11-06 12:24 | HMH.PTEV ---
Physical Therapy Evaluation Rehab PT IP Evaluation Start: 11/05/24 00:04 Freq: ONCE Status: Active Protocol: Document 11/06/24 12:15 COLLIN (Rec: 11/06/24 12:24 COLLIN [id number]) Subjective/History History History Per H&P, A 24-year-old female with a history of tachycardia, postural orthostatic tachycardia syndrome (POTS), vasovagal and orthostatic presyncope, hyperthyroidism currently on methimazole, Gilbert syndrome, anxiety, and panic disorder presents with palpitations. The patient reports that since this morning, November 04, she has experienced palpitations accompanied by multiple episodes of watery, loose diarrhea and nausea without vomiting. She subsequently developed lightheadedness, presyncope, palpitations, and general malaise. She denies fevers, chills, or abdominal pain but feels generally unwell. Per nursing, the pt ambulated approximately 20 ft before having a syncopal episode yesterday evening. The pt's heart rate spiked into the 140s prior to episode. Subjective Subjective The pt is alert and orientedx3 . The pt reports that she lives in a small home with her and two children. The pt reports that she has not walked more than approximately 20-30 ft at one time in over a year. The pt reports that she will become dizzy and lightheaded and she will often faint. She reports that she does not use an AD but her will be there to help her whenever she walks. New diagnosis of cancer in past 12 No months? [facility] How much help from another person do you currently need... Turning from your back to your side None while in a flat bed without using bedrails? Moving from lying on back to sitting on None the side of a flat bed without using bedrails? Moving to and from a bed to a chair ( A little including a wheelchair)? Standing up from a chair using your arms A little ? (e.g., wheelchair, bedside chair) Walking in hospital room? A little Climbing 3-5 steps with a railing? A lot Mobility Score 19 Mobility Level [facility] Mobility Calculator Mobility 6 Walk 10 steps or more Rehab PT IP Eval Objective Appearance Patient Behavior Appropriate,Patient Baseline Patient Orientation Person,Place,Time Difficulty following instructions none Speech Pattern Clear,Patient Baseline Ambulation Patient Able to Ambulate Yes Ambulation Observation IP General Gait Pattern Observation Shuffling Step Ambulation Distance (feet) 250 Ambulation Assistive Device None Ambulation Ability Minimal x 2 (25% assist) Balance Ability to Arise Able, uses arms to help Sitting Balance Steady, safe Standing Balance Narrow stance w/o support Dynamic Sitting Balance Ability Good Dynamic Standing Balance Ability Fair Transfers Bed Transfer Ability Supervision/Stand by Chair Transfer Ability Minimal x 2 (25% assist) Sit to Stand Bed Transfer Ability Minimal x 2 (25% assist) Sit to Stand Chair Transfer Ability Minimal x 2 (25% assist) Rehab PT IP prob,goals,plan Problems Date of Evaluation: 11/06/24 PT IP Problems Bed Mobility,Transfers,Gait, Balance,Self care,Safety Rehab Potential Rehab Potential Good Equipment Needs Assistive Devices Rolling / Wheeled Walker Plan PT Intervention Plan Bed Mobility,Transfers,Gait, Balance,Self care,Safety, Therapeutic Exercise PT Plan Frequency BID Duration LOS Discharge Goals Bed Transfer Ability Independent Sit to Stand Chair Transfer Ability Independent Ambulation Assistive Device None Ambulation Distance (feet) 250 Discharge Plan PT Discharge Plan PT is recommending discharge to home with outpatient Physical Therapy upon discharge from the hospital. Skilled PT is recommended for this pt during her acute stay. Pt ambulated 250 ft with minAx2 for maintaining balance . After ambulating approximately 50 ft, the pt began to feel light-headed and demonstrated a brief syncopal episode and was lowered into the following wheelchair. HR measured 111, O2 100% and BP 146/76 at this time. The pt then began ambulating again. She did not have any further syncopal episodes, however would begin to feel light- headed and dizzy when HR would reach 107. O2 maintained above 98% throughout walking. Pt reported feeling out of breath throughout walk. Discussed case with hospitalist and agreed that outpatient Physical Therapy would be best to challenge and improve patient's current cardiovascular endurance. Eval Complexity Eval Charge Codes 52474 - High Complexity PHYSICIAN CERTIFICATION: I certify the specified therapy services for Francy Delarosa are required, authorized, and reviewed every 30 days.
--- NOTE | 2024-11-06 12:36 | PC.NURSE ---
This RN and MD Mota went into room and patient was placed supine with a bedpan and towels under her for speculum exam and IUD removal. Pt tolerated IUD removal well.
--- NOTE | 2024-11-06 12:55 | EXP.GYNCONS ---
History of Present Illness *Admission Date: 11/04/24 *History of present illness: Ms Francy Delarosa is a a 24-year-old [id number] with a history of tachycardia, postural orthostatic tachycardia syndrome (POTS), vasovagal and orthostatic presyncope, hyperthyroidism currently on methimazole, Gilbert syndrome, anxiety, and panic disorder presents with palpitations. The patient reports that since this morning, November 04, she has experienced palpitations accompanied by multiple episodes of watery, loose diarrhea and nausea without vomiting. She subsequently developed lightheadedness, presyncope, palpitations, and general malaise. She denies fevers, chills, or abdominal pain but feels generally unwell. She had Paragard IUD inserted 09/07/24 and reports increased episodes of SVT, POTS and presyncope since one week after IUD insertion. She would like to have it removed. [facility] Disclaimer: The information contained in this section may have been updated after the patient was seen, as this information can be updated by other users. 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 Tobacco dependence syndrome Surgical History Hx of cholecystectomy H/O hand surgery Hx of dilation and curettage Hx of tonsillectomy Family History Other Family history of myocardial infarction Family history of stroke Social History Smoking Status: Never smoker second hand exposure: Yes alcohol intake: former substance use type: denies use current occupational status: unemployed Travel in the last 8 weeks: None housing: house Have you lived/traveled outside [place] in past 30 days?: No Contact w/someone who lives/traveled outside US past 30 days?: No Exposure to someone with infectious disease in past 14 days?: No Do you have a fever (greater than 100.4 F or 38 C)?: No Have you tested positive for COVID-19: No Exposed to someone with COVID-19 in past 14 days?: No Do you have a sore throat?: No Do you have a cough?: No Do you have any weakness?: No Do you have any diarrhea?: No Are you experiencing any unusual bleeding?: No Do you have any muscle aches/pain?: No Do you have any abdominal pain?: No Are you experiencing loss of taste or smell?: No Review of Systems Review of Systems Review of systems:: pertinent systems reviewed and negative unless documented below Meds Home Medications and Allergies Home Medications ?Medication ?Instructions ?Recorded ?Confirmed ?Type blood sugar diagnostic (StoractiveTouch #10 ea 08/31/24 11/04/24 History Verio test strips) blood-glucose meter (StoractiveTouch #1 ea 08/31/24 11/04/24 History Verio Reflect Meter) famotidine 20 mg tablet 20 mg PO DAILY 08/31/24 11/04/24 History lancets 33 gauge (StoractiveTouch Delica #100 ea 08/31/24 11/04/24 History Plus Lancet) buspirone 5 mg tablet 5 mg PO HS 10/17/24 11/04/24 History propranolol 10 mg tablet 10 mg PO BID 10/17/24 11/04/24 History cholecalciferol (vitamin D3) 50 50 mcg PO DAILY 11/04/24 11/04/24 History mcg (2,000 unit) capsule methimazole 10 mg tablet 10 mg PO DAILY #30 tabs 11/04/24 11/04/24 Rx albuterol sulfate 90 mcg/actuation 1 puff inhalation Q4HP PRN 11/05/24 11/05/24 History aerosol inhaler (Ventolin HFA) Shortness Of Breath New Prescriptions to Start Prescriptions: Allergies Allergy/AdvReac Type Severity Reaction Status Date / Time cinnamon Allergy Severe Swelling Verified 11/04/24 08:50 of Lip/Tongue/Throat amoxicillin (From Augmentin) Allergy Verified 11/04/24 08:50 clavulanic acid (From Allergy Verified 11/04/24 08:50 Augmentin) Penicillins Allergy Verified 11/04/24 08:50 Exam (Inpt) Vital signs and Labs for Last 24 Hours: Temp Pulse Resp BP Pulse Ox O2 Del Method 98.6 F 77 22 160/71 H 100 Room Air 11/06/24 12:00 11/06/24 12:00 11/06/24 12:00 11/06/24 12:00 11/06/24 12:00 11/06/24 12:00 Laboratory Results - last 24 hr 11/05/24 17:59: POC Glucose 129 H 11/06/24 06:15: WBC 5.5, RBC 3.33 L, Hgb 9.5 L, Hct 29.1 L, MCV 87.4, MCH 28.5, MCHC 32.6, RDW 12.6, Plt Count 174, MPV 11.9 H, Neut % (Auto) 51.5, Lymph % (Auto) 40.0, Calloway % (Auto) 7.6, Eos % (Auto) 0.4, Baso % (Auto) 0.5, Neut # (Auto) 2.9, Lymph # (Auto) 2.2, Calloway # (Auto) 0.4, Eos # (Auto) 0.0, Baso # (Auto) 0.0, Sodium 142, Potassium 3.3 L, Chloride 115 H, Carbon Dioxide 19 L, Anion Gap 11.3, BUN 5 L, Creatinine 0.60, Estimated Creat Clear 144, Estimated GFR 121, Est GFR ( Amer) 146, Glucose 79, Calcium 8.3 L, Total Bilirubin 1.2, AST 16 D, ALT 14 D, Alkaline Phosphatase 41, Total Protein 6.0 L, Albumin 3.2 L D, Globulin 2.8, Albumin/Globulin Ratio 1.1 I & O for Labs for Last 24 Hours: Intake & Output 11/03/24 11/04/24 11/05/24 11/06/24 23:59 23:59 23:59 23:59 Intake Total 1095 / 1455 2377 / 2377 Output Total 0 / 0 1250 / 1250 200 / 200 Balance 0 / 0 -155 / 205 2177 / 2177 Weight 139 lb 138 lb 15.988 oz 141 lb 12.116 oz Constitutional: no acute distress and cooperative HEENT Head: Present normocephalic and atraumatic ENT: Present mucous membranes moist Neck: Present normal inspection and full ROM Respiratory: Present CTA bilaterally and normal respiratory effort Cardiac: Present Reg Rate and Rhythm : Present normal urethra appearance; Absent swelling, tenderness, lesions, lacerations or discharge Vagina: Absent discharge Rectal (female): Present deferred Extremities: Present full ROM; Absent edema or calf tenderness Neuro: Present alert, awake and moves all extremities Assessment and Plan *Assessment and plan (1) Orthostatic syncope: Status: Acute Category: Medical Code(s): I95.1 - Orthostatic hypotension (2) Tachycardia: Status: Acute Category: Medical Code(s): R00.0 - Tachycardia, unspecified (3) Syncope: Status: Acute Category: Medical Code(s): R55 - Syncope and collapse (4) Hyperthyroidism: Status: Acute Category: Medical Code(s): E05.90 - Thyrotoxicosis, unspecified without thyrotoxic crisis or storm (5) Autonomic dysfunction: Status: Acute Category: Medical Code(s): G90.9 - Disorder of the autonomic nervous system, unspecified (6) IUD (intrauterine device) in place: Status: Acute Category: Medical Code(s): Z97.5 - Presence of (intrauterine) contraceptive device Plan Francy requests IUD to be removed. She reports she has felt worse since Paragard was inserted. She is considering permanent sterilization IUD strings grasped with ringed forceps. IUD removed without difficulty. She tolerated procedure well Follow-up with Dr. Clark outpatient to discuss sterilization further Will sign off at this time but am available if anything else should arise that I can assist with
--- NOTE | 2024-11-06 14:04 | PC.NURSE ---
All patient care and documentation completed by Fabiola WILHELM was completed under my direct supervision. Claudia Alamo RN
--- NOTE | 2024-11-06 16:17 | P.PN_ITS ---
Subjective *Date: 11/06/24 *Time: 16:17 Interval history: Symptoms significantly improved today, especially during test today. No events once or SVT today. Patient nervous about going home today due to SVT yesterday afternoon, will monitor overnight for anticipate discharge in the morning. Exam Data for Last 24 hours Vital signs and Labs for Last 24 Hours: Temp Pulse Resp BP Pulse Ox O2 Del Method 98.6 F 84 15 108/59 L 100 Room Air 11/06/24 16:00 11/06/24 16:00 11/06/24 16:00 11/06/24 16:00 11/06/24 16:00 11/06/24 16:00 Laboratory Results - last 24 hr 11/05/24 17:59: POC Glucose 129 H 11/06/24 06:15: WBC 5.5, RBC 3.33 L, Hgb 9.5 L, Hct 29.1 L, MCV 87.4, MCH 28.5, MCHC 32.6, RDW 12.6, Plt Count 174, MPV 11.9 H, Neut % (Auto) 51.5, Lymph % (Auto) 40.0, Early % (Auto) 7.6, Eos % (Auto) 0.4, Baso % (Auto) 0.5, Neut # (Auto) 2.9, Lymph # (Auto) 2.2, Early # (Auto) 0.4, Eos # (Auto) 0.0, Baso # (Auto) 0.0, Sodium 142, Potassium 3.3 L, Chloride 115 H, Carbon Dioxide 19 L, Anion Gap 11.3, BUN 5 L, Creatinine 0.60, Estimated Creat Clear 144, Estimated GFR 121, Est GFR ( Amer) 146, Glucose 79, Calcium 8.3 L, Total Bilirubin 1.2, AST 16 D, ALT 14 D, Alkaline Phosphatase 41, Total Protein 6.0 L, Albumin 3.2 L D, Globulin 2.8, Albumin/Globulin Ratio 1.1 I & O for Last 24 hours: Intake & Output 11/03/24 11/04/24 11/05/24 11/06/24 23:59 23:59 23:59 23:59 Intake Total 1095 / 1455 2827 / 2827 Output Total 0 / 0 1250 / 1250 350 / 350 Balance 0 / 0 -155 / 205 2477 / 2477 Weight 63.049 kg 63.049 kg 64.3 kg Constitutional Constitutional: no acute distress *Routine HEENT Exam Head: Present normocephalic Eye: Present EOMI and PERRL ENT: Present mucous membranes moist *Routine Neck Exam Neck: Present supple; Absent lymphadenopathy *Routine Respiratory Exam Respiratory: Present CTA bilaterally *Routine Cardiovascular Exam Cardiovascular: Present RRR *Routine Abdominal Exam Abdominal: Present soft and normoactive bowel sounds; Absent tenderness *Routine Extremities Exam Extremities: Absent cyanosis, clubbing or edema *Routine Skin Exam Skin: Present warm; Absent rash *Routine Neurological Exam Neurological: Present alert and oriented X3 Assessment and Plan *Assessment and plan (1) Hyperthyroidism: Status: Acute Category: Medical Code(s): E05.90 - Thyrotoxicosis, unspecified without thyrotoxic crisis or storm Plan Francy Delarosa is a 24-year-old female who presented with palpitations, lightheadedness, diarrhea, presyncope and was admitted for hyperthyroidism and POTS. #Hyperthyroid disorder # thyroiditis #Postural orthostatic tachycardia syndrome (POTS) ? Patient is 4 months , and unfortunately seems to have developed thyroiditis. Previous TSH prior to normal. ? She states she has been struggling with longstanding POTS and had been on propranolol 10 mg daily. ? Patient has also been experiencing weight loss, palpitations, lightheadedness, diarrhea for a few months since . ? Recently admitted to [facility] ICU 2 weeks ago for hypothyroid disorder who consulted endocrinology recommending methimazole 20 mg twice daily, continue propranolol. 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 Patient developed symptoms soon after discharge, PCP started methimazole 10 mg daily which patient has been adherent. ? TSH less than 0.02, free T4 3.01, free T3 normal at 4.3. ? Thyroid peroxidase antibodies, thyroglobulin levels elevated in September. Follow-up thyroid-stimulating, thyroid receptor antibodies. ? ECHO with [facility] did not indicate structural or functional disease. ? Hypothyroidism likely exacerbating POTS. Patient syncopized twice with ambulation during hospitalization with tachycardia in the absence of orthostatic hypotension, indicating POTS. ? Initially started on methimazole, but after careful consideration this was discontinued as patient most likely has thyroiditis during which methimazole is not helpful and actually could make subsequent hypothyroid state even worse. thyroiditis is a result of preformed T4 being released from thyroid follicles. Methimazole does not mitigate this. ? Continue propranolol 20 mg three daily to mitigate peripheral conversion of T4 to T3, and treat POTS. This has significantly improved patient's symptoms today. ? Started fludrocortisone 0.1 mg daily for POTS, continue salt tab 1000 mg daily liberalize salt intake for POTS. ? Follow-up cortisol, ACTH to rule out adrenal insufficiency. ? Of note, patient states symptoms might have worsened after copper IUD placement. I have low suspicion of this as copper IUD only causes local treatment/inflammation. However, patient wanted it removed and [employer] graciously removed it. ? Continuous cardiac telemetry. ? Patient had a walk test today, significant improvement from yesterday. She did note she was having intermittent shortness of breath with some lightheadedness while walking, however this is more likely due to significant physical deconditioning as patient has not walked much in the past year due to POTS. Due to yesterday's SVT, patient was nervous about going home too early today. She wants to be monitored overnight to rule this out which I believe is reasonable. #SVT ? Patient had an episode of SVT yesterday afternoon with HR greater than 150 sustaining. Improved with vagal maneuvers. Converted to sinus rhythm with tachycardia, which improved with IV Lopressor 5 mg. ? Continue propranolol 20 mg 3 times daily. No events today. #Iron deficiency anemia #Low vitamin D ? Ferritin 5.15. Vitamin D level 18.7. Hemoglobin 10.1. B12, folate levels normal. ? Given Venofer 200 mg. ? Started vitamin D3 4000 mcg daily. Full code DVT prophylaxis: Lovenox 40 mg
[2024-11-06] MEDS: LORazepam 0.5MG TABLET 0.5 MG PO (19:23)
[2024-11-06] MEDS: BUSPIRONE HCL 5 MG TABLET PO (20:44)
--- NOTE | 2024-11-06 21:30 | PC.NURSE ---
Patient refusing scheduled propanolol at this time. Patient states she will take it sometime tonight, maybe around 11. Patient educated about need to maintain medication schedule. Patient continues to refuse. Antonio Schwarz APRN notified and updated.
[2024-11-07] VITALS: BP 123/74; PULSE 70; PULSE 74; RESP 14; TEMP 36.6; O2SAT 98
--- NOTE | 2024-11-07 01:46 | PC.NURSE ---
patient was transferred from [place] to [place] and this RN accepted care of the patient at 0100
[2024-11-07 04:00] VITALS: BP 116/48; PULSE 70; PULSE 74; RESP 13; TEMP 36.8; O2SAT 100; BMI 23.6
--- NOTE | 2024-11-07 06:00 | US_ITS ---
FINAL REPORT TECHNIQUE: Sonographic images of the thyroid were obtained. CLINICAL HISTORY: thyrotoxicosis FINDINGS: THYROID ULTRASOUND The right thyroid gland measures 5.0 x 1.7 x 1.2 cm. The parenchyma shows normal echogenicity. No dominant mass is seen. The left thyroid gland measures 5.0 x 1.5 x 1.4 cm. The parenchyma shows normal echogenicity. No dominant mass is seen. IMPRESSION: Unremarkable thyroid evaluation Reviewed, Interpreted and Dictated by Tristan South MD Transcribed by Margareth Peralta Authenticated and [facility]
[2024-11-07 06:37] LABS: Basophils % 0.6 % (0.1-2.0); Eosinophils % 0.6 % (0.1-12.0); Hematocrit 29.7 % (37.0-47.0); Hemoglobin 9.8 g/dL (12.2-16.2); Lymphocytes # 1.9 K/mm3 (0.7-4.5); Lymphocytes % 39.3 % (10-50); Mean Corpuscular Hemoglobin 28.6 pg (27.0-31.2); Mean Corpuscular Volume 86.6 fl (81-99); Mean Platelet Volume 11.9 fl (7.4-10.4); Monocytes # 0.3 K/mm3 (0.1-1.0); Monocytes % 5.9 % (1.7-9.3); Neutrophils # 2.6 K/mm3 (1.8-7.8); Neutrophils % 53.4 % (37.0-80.0); Nucleated Red Blood Cells # 0 10^3/uL; Nucleated Red Blood Cells % 0 %; Platelet Count 169 K/mm3 (142-424); Red Blood Count 3.43 M/mm3 (4.20-5.40); Red Cell Distribution Width 12.3 % (11.5-17.5); Red Cell Distribution Width-SD 38.9 fL; White Blood Count 4.9 K/mm3 (4.8-10.8)
[2024-11-07 07:08] LABS: Albumin Level 3.4 g/dl (3.5-5.0); Chloride 110 mmol/L (98-107); Potassium 3.2 mmoL/L (3.5-5.1); Sodium 141 mmol/L (136-145)
[2024-11-07 07:11] LABS: Alanine Aminotransferase 14 U/L (12-78); Albumin/Globulin Ratio 1.3 (1.1-1.8); Alkaline Phosphatase 46 U/L (38-126); Anion Gap 13.2 mEq/L (5-15); Aspartate Amino Transferase 22 U/L (14-36); Blood Urea Nitrogen 4 mg/dl (7-17); Carbon Dioxide 21 mmol/L (22.0-30.0); Creatinine Clearance Estimated 174 mL/min (50-200); Estimated Glomerular Filt Rate 149 ml/min (>60); GFR (African American) 180 ML/MIN (>60); Globulin 2.7 g/dL (1.3-3.2); Total Protein,Serum 6.1 g/dl (6.3-8.2)
[2024-11-07 07:12] LABS: Calcium 8.3 mg/dl (8.4-10.2); Glucose 83 mg/dl (74-100)
[2024-11-07 07:57] VITALS: BP 116/64; PULSE 79; RESP 16; TEMP 36.9; O2SAT 100
[2024-11-07 08:00] VITALS: PULSE 110
[2024-11-07] MEDS: CHOLECALCIFEROL 1,000 UNITS (25MCG) TABLET 100 MCG PO (08:45)
[2024-11-07] MEDS: SODIUM CHLORIDE 1,000MG TABLET 1000 MG PO (08:45)
[2024-11-07] MEDS: FLUDROCORTISONE 0.1MG TABLET 0.1 MG PO (08:45)
[2024-11-07] MEDS: ENOXAPARIN 40MG/0.4ML SYRINGE 40 MG SUBCUT (08:45)
[2024-11-07] MEDS: PROPRANOLOL 20MG TAB 20 MG PO (08:45)
[2024-11-07] MEDS: FAMOTIDINE 20MG TABLET 20 MG PO (08:45)
[2024-11-07 09:24] LABS: Magnesium 1.6 mg/dl (1.6-2.3)
[2024-11-07 10:10] LABS: Anti-Centromere B Antibodies <0.2 AI (0.0-0.9); Anti-DNA (DS) Ab Qn 1 IU/mL (0-9); Anti-Jo-1 <0.2 AI (0.0-0.9); Anti-Smith Antibody <0.2 AI (0.0-0.9); Antichromatin Antibodies <0.2 AI (0.0-0.9); Antiscleroderma-70 Antibodies <0.2 AI (0.0-0.9); RNP Antibodies <0.2 AI (0.0-0.9); Sjogren's Anti-SS-A <0.2 AI (0.0-0.9); Sjogren's Anti-SS-B <0.2 AI (0.0-0.9)
[2024-11-07] MEDS: POTASSIUM CHLORIDE 20MEQ TAB 40 MEQ PO (10:12)
--- NOTE | 2024-11-07 10:59 | EXP.DC.SUM ---
General Admission date:: 11/04/24 HPI HPI HPI: Ms Francy Delarosa is a a 24-year-old [id number] with a history of tachycardia, postural orthostatic tachycardia syndrome (POTS), vasovagal and orthostatic presyncope, hyperthyroidism currently on methimazole, Gilbert syndrome, anxiety, and panic disorder presents with palpitations. The patient reports that since this morning, November 04, she has experienced palpitations accompanied by multiple episodes of watery, loose diarrhea and nausea without vomiting. She subsequently developed lightheadedness, presyncope, palpitations, and general malaise. She denies fevers, chills, or abdominal pain but feels generally unwell. She had Paragard IUD inserted 09/07/24 and reports increased episodes of SVT, POTS and presyncope since one week after IUD insertion. She would like to have it removed. Hospital Course Hospital Course Hospital Course: Francy Delarosa is a 24-year-old female who presented with palpitations, lightheadedness, diarrhea, presyncope and was admitted for hyperthyroidism and POTS. #Hyperthyroid disorder # thyroiditis #Postural orthostatic tachycardia syndrome (POTS) ? Patient is 4 months , and unfortunately has developed thyroiditis. Previous TSH prior to normal. ? Patient has also been experiencing weight loss, palpitations, lightheadedness, diarrhea for a few months since . ? She states she has been struggling with longstanding POTS and had been on propranolol 10 mg daily. Confirmed during admission with 2 syncopal events with tachycardia in the absence of orthostatic hypotension. ? Recently admitted to [facility] 2 weeks ago for similar presentation. ? On admission, TSH less than 0.02, free T4 3.01, free T3 normal at 4.3. ? Thyroid peroxidase antibodies, thyroglobulin levels elevated in September. Thyroid-stimulating, thyroid receptor antibodies pending though likely to be normal. ? ECHO with [place] did not indicate structural or functional disease. ? Thyroiditis likely exacerbating POTS. Patient syncopized twice with ambulation during hospitalization. ? Initially started on methimazole, but after careful consideration this was discontinued as patient most likely has thyroiditis during which methimazole is not helpful and actually could make subsequent hypothyroid state worse. thyroiditis is a result of preformed T4 being released from thyroid follicles. Methimazole does not mitigate this. ? Increased propranolol 20 mg three daily to mitigate peripheral conversion of T4 to T3, and treat POTS. ? Started fludrocortisone 0.1 mg daily for POTS. Consider discontinuing or Q48h dosing once patient becomes hypothyroid due to enhanced effects during hypothyroid state. ? Started salt tab 1000 mg daily liberalize salt intake for POTS. ? This regimen has significantly improved symptoms, patient is able to ambulate independently without assistance or syncope. Patient will inevitably develop hypothyroidism state after thyrotoxicosis state subsides in the setting of thyroiditis, will need regular follow-ups with PCP and reconsideration of above regimen. ? Recommend liberalizing salt intake, judicious fluid intake, eating nutritious consistent meals, and staying physically active for POTS. ? Will follow-up with PCP within 1 week for further evaluation and management. #SVT ? Patient had an episode of SVT with HR greater than 150 sustaining during first day of admission. Improved with vagal maneuvers. Converted to sinus rhythm with tachycardia, which improved with IV Lopressor 5 mg. ? Continue propranolol 20 mg 3 times daily. No events today. #Iron deficiency anemia #Low vitamin D ? Ferritin 5.15. Vitamin D level 18.7. Hemoglobin 10.1. B12, folate levels normal. ? Given Venofer 200 mg. ? Started vitamin D3 4000 mcg daily. ? Started #Copper IUD ? Of note, patient states symptoms might have worsened after copper IUD placement. I have low suspicion of this as copper IUD only causes local treatment/inflammation. However, patient wanted it removed and [employer] MACHINE [employer]PERATOR graciously removed it. Total time spent on discharge: 32 minutes on chart review, counseling, documentation, and direct care with patient. Exam Data for Last 24 hours Vital signs and Labs for Last 24 Hours: Temp Pulse Resp BP Pulse Ox O2 Del Method 98.5 F 110 H 16 116/64 100 Room Air 11/07/24 07:57 11/07/24 08:00 11/07/24 07:57 11/07/24 07:57 11/07/24 07:57 11/07/24 10:29 Laboratory Results - last 24 hr 11/05/24 17:02: ERI Comment Comment, HUAN-1 Antibody <0.2, SS-A Antibody <0.2, SS-B Antibody <0.2, Sm (Fair) Antibody <0.2, DRAUGHTSMAN Antibody <0.2, Scl-70 Scleroderma Ab <0.2, Double Strand DNA Ab 1, Chromatin Antibody <0.2, Centromere B Antibody <0.2 11/07/24 05:18: WBC 4.9, RBC 3.43 L, Hgb 9.8 L, Hct 29.7 L, MCV 86.6, MCH 28.6, MCHC 33.0, RDW 12.3, Plt Count 169, MPV 11.9 H, Neut % (Auto) 53.4, Lymph % (Auto) 39.3, [place] % (Auto) 5.9, Eos % (Auto) 0.6, Baso % (Auto) 0.6, Neut # (Auto) 2.6, Lymph # (Auto) 1.9, [place] # (Auto) 0.3, Eos # (Auto) 0.0, Baso # (Auto) 0.0, Sodium 141, Potassium 3.2 L, Chloride 110 H, Carbon Dioxide 21 L, Anion Gap 13.2, BUN 4 L, Creatinine 0.50 L, Estimated Creat Clear 174, Estimated GFR 149, Est GFR ( Amer) 180 D, Glucose 83, Calcium 8.3 L, Magnesium 1.6 D, Total Bilirubin 1.0, AST 22 D, ALT 14, Alkaline Phosphatase 46, Total Protein 6.1 L, Albumin 3.4 L, Globulin 2.7, Albumin/Globulin Ratio 1.3 I & O for Last 24 hours: Intake & Output 11/04/24 11/05/24 11/06/24 11/07/24 23:59 23:59 23:59 23:59 Intake Total 1095 / 1455 4351 / 4591 240 / 240 Output Total 0 / 0 1250 / 1250 850 / 850 400 / 400 Balance 0 / 0 -155 / 205 3501 / 3741 -160 / -160 Weight 63.049 kg 63.049 kg 64.3 kg 64.501 kg Microbiology Reports for the Last 24 Hours: Microbiology 11/05/24 19:45 Blood Blood Culture - Preliminary NO GROWTH AFTER 24 HOURS 11/05/24 19:57 Blood Blood Culture - Preliminary NO GROWTH AFTER 24 HOURS Results Data Completed and Pending Labs on day of discharge: Labs from last 24 hours 11/07/24 11/05/24 05:18 17:02 WBC 4.9 RBC 3.43 L Hgb 9.8 L Hct 29.7 L MCV 86.6 MCH 28.6 MCHC 33.0 RDW 12.3 Plt Count 169 MPV 11.9 H Neut % (Auto) 53.4 Lymph % (Auto) 39.3 [place] % (Auto) 5.9 Eos % (Auto) 0.6 Baso % (Auto) 0.6 Neut # (Auto) 2.6 Lymph # (Auto) 1.9 [place] # (Auto) 0.3 Eos # (Auto) 0.0 Baso # (Auto) 0.0 Sodium 141 Potassium 3.2 L Chloride 110 H Carbon Dioxide 21 L Anion Gap 13.2 BUN 4 L Creatinine 0.50 L Estimated Creat Clear 174 Estimated GFR 149 Est GFR ( Amer) 180 D Glucose 83 Calcium 8.3 L Magnesium 1.6 D Total Bilirubin 1.0 AST 22 D ALT 14 Alkaline Phosphatase 46 Total Protein 6.1 L Albumin 3.4 L Globulin 2.7 Albumin/Globulin Ratio 1.3 ERI Comment Comment HUAN-1 Antibody <0.2 SS-A Antibody <0.2 SS-B Antibody <0.2 Sm (Fair) Antibody <0.2 DRAUGHTSMAN Antibody <0.2 Scl-70 Scleroderma Ab <0.2 Double Strand DNA Ab 1 Chromatin Antibody <0.2 Centromere B Antibody <0.2 Preliminary micro results at discharge 11/05/24 19:45 Blood Culture - Preliminary Blood NO GROWTH AFTER 24 HOURS 11/05/24 19:57 Blood Culture - Preliminary Blood NO GROWTH AFTER 24 HOURS DS: Diagnosis Discharge Diagnosis (1) Hyperthyroidism: Status: Acute Code(s): E05.90 - Thyrotoxicosis, unspecified without thyrotoxic crisis or storm (2) thyroiditis: Status: Acute Code(s): O90.5 - thyroiditis Meds Home Medications and Allergies Home Medications ?Medication ?Instructions ?Recorded ?Confirmed ?Type famotidine 20 mg tablet 20 mg PO DAILY 08/31/24 11/04/24 History buspirone 5 mg tablet 5 mg PO HS 10/17/24 11/04/24 History propranolol 10 mg tablet 10 mg PO BID 10/17/24 11/04/24 History cholecalciferol (vitamin D3) 50 50 mcg PO DAILY 11/04/24 11/04/24 History mcg (2,000 unit) capsule albuterol sulfate 90 mcg/actuation 1 puff inhalation Q4HP PRN 11/05/24 11/05/24 History aerosol inhaler (Ventolin HFA) Shortness Of Breath cholecalciferol (vitamin D3) 25 100 mcg (4 x 25 mcg (1,000 unit)) 11/07/24 Rx mcg (1,000 unit) tablet PO DAILY 30 days #120 tabs ferrous sulfate 325 mg (65 mg 325 mg PO BID #60 tabs 11/07/24 Rx iron) tablet fludrocortisone 0.1 mg tablet 0.1 mg PO DAILY 30 days #30 tabs 11/07/24 Rx propranolol 20 mg tablet 20 mg PO TID 30 days #90 tabs 11/07/24 Rx sodium chloride 1,000 mg soluble 1,000 mg PO DAILY 30 days #30 tabs 11/07/24 Rx tablet New Prescriptions to Start Prescriptions: cholecalciferol (vitamin D3) Earle Gamble ferrous sulfate Mavis,Earle fludrocortisone Mavis,Earle propranolol Mavis,Earle sodium chloride Earle Gamble Allergies Allergy/AdvReac Type Severity Reaction Status Date / Time cinnamon Allergy Severe Swelling Verified 11/04/24 08:50 of Lip/Tongue/Throat amoxicillin (From Augmentin) Allergy Verified 11/04/24 08:50 clavulanic acid (From Allergy Verified 11/04/24 08:50 Augmentin) Penicillins Allergy Verified 11/04/24 08:50 Discharge Plan Disposition Patient Disposition: Home, Self-Care Condition: Fair Discharge Order Discharge Orders: Discharge Order (Routine); Ordered 11/07/24 Ordered By: Earle Gamble Follow up Plan Follow up with: Luis Clark MD [Staff Physician] - 11/22/24 3:00 pm Padmini Wyatt APRN [Primary Care Provider] - 11/08/24 1:00 pm Prescriptions/Medication Reconciliation: New propranolol 20 mg Tablet 20 mg PO TID 30 Days Qty: 90 0RF fludrocortisone 0.1 mg Tablet 0.1 mg PO DAILY 30 Days Qty: 30 0RF sodium chloride 1,000 mg Tablet,Soluble 1,000 mg PO DAILY 30 Days Qty: 30 0RF ferrous sulfate 325 mg (65 mg iron) tablet 325 mg PO BID Qty: 60 0RF cholecalciferol (vitamin D3) 25 mcg (1,000 unit) Tablet 100 mcg PO DAILY 30 Days Qty: 120 0RF Continued famotidine 20 mg tablet 20 mg PO DAILY buspirone 5 mg tablet 5 mg PO HS propranolol 10 mg tablet 10 mg PO BID Patient Comments: Pt reports once daily unless needed for tachycardia/palpitations then she will take second dose. cholecalciferol (vitamin D3) 50 mcg (2,000 unit) capsule 50 mcg PO DAILY albuterol sulfate [Ventolin HFA] 90 mcg/actuation HFA aerosol inhaler 1 puff INHALATION Q4HP PRN (Reason: Shortness Of Breath) Discontinued (DME) lancets [OneTouch Delica Plus Lancet] 33 gauge misc See Rx Instructions .ROUTE .MEDSUPPLY Qty: 100 Rx Instructions: As directed (DME) OneTouch Verio test strips Strip See Rx Instructions .ROUTE .MEDSUPPLY Qty: 10 Rx Instructions: As directed (DME) blood-glucose meter [OneTouch Verio Reflect Meter] Misc See Rx Instructions .ROUTE .MEDSUPPLY Qty: 1 Rx Instructions: As directed methimazole 10 mg tablet 10 mg PO DAILY Qty: 30 0RF Problem Reconciliation Problems Reviewed?: Yes Patient Discharge Instructions Additional Instructions: Your thyroid ultrasound was normal. Patient Instructions: DI for Orthostatic Hypotension Print Language: Welsh Providers Primary Care Provider: Padmini Wyatt Admit Provider: Earle Gamble Attending Provider: Earle Gamble
[2024-11-07 12:12] LABS: Triiodothyronine (T3) Free 5.4 pg/mL (2.0-4.4)
[2024-11-07 13:32] LABS: Cortisol,AM 7.1 ug/dL (6.2-19.4)
[2024-11-07 13:32] LABS: Adrenocorticotropic Hormone 31.9 pg/mL (7.2-63.3)
--- NOTE | 2024-11-07 15:34 | PC.NURSE ---
Carla in lab called stating they pt's thyrotropin antibody was rejected, Dr. Gamble notified.
--- NOTE | 2024-11-09 10:20 | SW/DCPLANNER ---
Phoned patient x2. left message the first time with name and call back number. 2nd time the patients phone rung and then it was like i was hung up on. Mily Dawson
[2024-11-09 19:42] LABS: Thyroid Stimulating Immunoglob <0.10 IU/L (0.00-0.55)
== END 2024-11-07 12:10 | disposition home or self-care (01) | DRG 92 ==
LOC: ER 21:43 → 2ND 22:28
PROVIDERS: Nurse Practitioner Family; Admitting Provider Student in an Organized Health Care Education/Training Program; Emergency Provider Emergency Medicine; PCP Nurse Practitioner Family; Visit Provider Student in an Organized Health Care Education/Training Program
DX: G90.A Postural orthostatic tachycardia syndrome [POTS] (principal); O99.43 Diseases of the circulatory system complicating the puerperium; O90.5 Postpartum thyroiditis; D50.9 Iron deficiency anemia, unspecified; E55.9 Vitamin D deficiency, unspecified; E05.90 Thyrotoxicosis, unspecified without thyrotoxic crisis or storm; E80.4 Gilbert syndrome; R07.9 Chest pain, unspecified; O99.285 Endocrine, nutritional and metabolic diseases complicating the puerperium; F41.0 Panic disorder [episodic paroxysmal anxiety]; R55 Syncope and collapse; Z88.0 Allergy status to penicillin; Z88.1 Allergy status to other antibiotic agents; Z91.018 Allergy to other foods; Z79.899 Other long term (current) drug therapy; Z90.49 Acquired absence of other specified parts of digestive tract; Z30.432 Encounter for removal of intrauterine contraceptive device
CPT/HCPCS: 36415; 71045; 76536; 80048; 80053; 82024; 82306; 82533; 82607; 82728; 82746; 82962; 83520; 83540; 83550; 83735; 84100; 84436; 84439; 84443; 84445; 84481; 84484; 85025; 86225; 86235; 87040; 87633; 93005; 97163; 99285; G0378; J1650; J1756; J2405; J2550; J7030; J7120

== ENCOUNTER 2024-11-08 13:42 | Outpatient (CLI) | payer MEDICAID, SELFPAY ==
[2024-11-08 14:20] LABS: Basophils # 0.1 K/mm3 (0-0.2); Basophils % 1.1 % (0.1-2.0); Eosinophils % 0.6 % (0.1-12.0); Hematocrit 34.9 % (37.0-47.0); Hemoglobin 11.4 g/dL (12.2-16.2); Lymphocytes # 1.5 K/mm3 (0.7-4.5); Lymphocytes % 32.5 % (10-50); Mean Corpuscular HGB Conc 32.7 g/dL (31.8-35.4); Mean Corpuscular Hemoglobin 28.3 pg (27.0-31.2); Mean Corpuscular Volume 86.6 fl (81-99); Mean Platelet Volume 11.4 fl (7.4-10.4); Monocytes # 0.3 K/mm3 (0.1-1.0); Monocytes % 5.5 % (1.7-9.3); Neutrophils # 2.8 K/mm3 (1.8-7.8); Neutrophils % 60.1 % (37.0-80.0); Nucleated Red Blood Cells # 0 10^3/uL; Nucleated Red Blood Cells % 0 %; Platelet Count 218 K/mm3 (142-424); Red Blood Count 4.03 M/mm3 (4.20-5.40); Red Cell Distribution Width 12.2 % (11.5-17.5); Red Cell Distribution Width-SD 38.6 fL; White Blood Count 4.7 K/mm3 (4.8-10.8)
[2024-11-08 15:52] LABS: Free T4 (Free Thyroxine) 2.66 ng/dl (0.78-2.19)
[2024-11-08 15:55] LABS: T4 (Thyroxine) 15.8 ug/dl (5.53-11.0)
[2024-11-08 16:09] LABS: Thyroid Stimulating Hormone < 0.02 uIU/mL (0.465-4.68)
[2024-11-08 16:47] LABS: Ferritin 55.2 ng/ml (6.24-137)
[2024-11-09 08:42] LABS: Triiodothyronine (T3) Free 5.1 pg/mL (2.0-4.4)
== END 2024-11-08 23:59 | disposition home or self-care (01) ==
LOC: LAB 13:43
PROVIDERS: PCP Nurse Practitioner Family; Visit Provider Nurse Practitioner Family
DX: R23.2 Flushing (principal); R55 Syncope and collapse; E05.90 Thyrotoxicosis, unspecified without thyrotoxic crisis or storm; G90.9 Disorder of the autonomic nervous system, unspecified; O90.5 Postpartum thyroiditis; R00.2 Palpitations; G90.A Postural orthostatic tachycardia syndrome [POTS]
CPT/HCPCS: 36415; 82728; 83520; 84436; 84439; 84443; 84481; 85025

== ENCOUNTER 2024-11-22 11:13 | Emergency (ER) | payer MEDICAID, SELFPAY ==
[2024-11-22] VITALS (14 sets, daily range): BP systolic 100–140; BP diastolic 66–105; PULSE 73–96; RESP 13–21; TEMP 36.8; O2SAT 95–100; BMI 23.3
--- NOTE | 2024-11-22 11:22 | ECG_ITS ---
APPROVED REPORT Exam: Resting ECG HR:76 bpm ECG Measurements Heart Rate 76 AXES DE 139 P 44 QRSd 82 QRS 64 QT 343 T 52 QTc 373 Conclusion SINUS RHYTHM WITH SINUS ARRHYTHMIA NORMAL ECG Electronically signed by : ALFONZO HANNA, 11/22/2024 14:40:18
--- NOTE | 2024-11-22 11:56 | PC.NURSE ---
Assisted pt to the bathroom. She requested to use her wheelchair. Pt tolerating ambulating a few feet and up/down out of chair. Reports light-headedness denies dizziness.
[2024-11-22 11:58] LABS: Basophils % 0.6 % (0.1-2.0); Eosinophils % 0.4 % (0.1-12.0); Hematocrit 41.2 % (37.0-47.0); Hemoglobin 13.5 g/dL (12.2-16.2); Lymphocytes # 1.4 K/mm3 (0.7-4.5); Lymphocytes % 30.6 % (10-50); Mean Corpuscular HGB Conc 32.8 g/dL (31.8-35.4); Mean Corpuscular Hemoglobin 27.7 pg (27.0-31.2); Mean Corpuscular Volume 84.6 fl (81-99); Mean Platelet Volume 11.8 fl (7.4-10.4); Monocytes # 0.3 K/mm3 (0.1-1.0); Monocytes % 5.5 % (1.7-9.3); Neutrophils % 62.9 % (37.0-80.0); Nucleated Red Blood Cells # 0 10^3/uL; Nucleated Red Blood Cells % 0 %; Platelet Count 177 K/mm3 (142-424); Red Blood Count 4.87 M/mm3 (4.20-5.40); Red Cell Distribution Width 12.5 % (11.5-17.5); Red Cell Distribution Width-SD 38.4 fL; White Blood Count 4.7 K/mm3 (4.8-10.8)
[2024-11-22 11:59] LABS: Microscopic, Urine URINE MICROSCOPIC (MICROSCOPIC)
[2024-11-22 12:14] LABS: Appearance,Urine CLEAR (Clear); Bilirubin,Urine Negative (Negative); Blood, Urine Negative (Negative); Color,Urine YELLOW (Yellow); Glucose,Urine (UA) Negative (Negative); Ketones,Urine Negative (Negative); Leukocyte Esterase,Urine Negative (Negative); Nitrate,Urine Negative (Negative); Protein,Urine Negative (Negative); Urobilinogen,Urine 0.2 EU/dl (0.2)
--- NOTE | 2024-11-22 12:19 | HMH.EDGENADL ---
Discharge Plan Disposition Patient Disposition: Home, Self-Care Condition: Good Prescriptions Prescriptions: New methimazole 10 mg tablet 10 mg PO BID Qty: 60 2RF No Action famotidine 20 mg tablet 20 mg PO DAILY buspirone 5 mg tablet 5 mg PO HS albuterol sulfate [Ventolin HFA] 90 mcg/actuation HFA aerosol inhaler 1 puff INHALATION Q4HP PRN (Reason: Shortness Of Breath) propranolol 20 mg Tablet 20 mg PO TID 30 Days Qty: 90 0RF fludrocortisone 0.1 mg Tablet 0.1 mg PO DAILY 30 Days Qty: 30 0RF sodium chloride 1,000 mg Tablet,Soluble 1,000 mg PO DAILY 30 Days Qty: 30 0RF ferrous sulfate 325 mg (65 mg iron) tablet 325 mg PO BID Qty: 60 0RF cholecalciferol (vitamin D3) 25 mcg (1,000 unit) Tablet 100 mcg PO DAILY 30 Days Qty: 120 0RF Referrals Follow up/Referrals: Padmini Wyatt APRN [Primary Care Provider] - See instructions Activity Restrictions/Add. Instructions Additional Instructions/Restrictions: You were evaluated in the Emergency Department today. We are increasing your dose of methimazole per Dr. Joann Ladd ([facility]). Please have your PCP send a referral to their clinic, and they will schedule you an appointment. Return to the emergency department for new or worsening symptoms. Clinical Impressions Clinical Impression: Hyperthyroidism Stand Alone Forms Stand Alone Forms: Work/School Release Instructions Patient Instructions: DI for Hyperthyroidism, DI for Atypical Chest Pain Print Language Print Language: Latvian Discharge ED Provider: Jyoti Ortiz General Adult HPI General Chief complaint: Chest Pain Stated complaint: Sent by Sabi Wyatting, SO2, Hyperthyroidism, Time Seen by Provider: 11/22/24 11:27 Mode of Arrival: Ambulatory Source of Information: Patient Description of Symptoms (Recalled from ER Triage Doc. by RN): pt was sent here from pcp for possible thyroid issues, pt has been having soa and chest pressure and was admitted a few weeks ago for thyroid storm History of Present Illness HPI narrative: This patient is a 24-year-old female with a history of thyroiditis, POTS, anxiety presented to the emergency department for evaluation with concern for lightheadedness, fatigue, intermittent shortness of breath and chest pressure. Patient has had multiple previous admissions for thyroiditis and thyroid storm, including [place] [facility] and here. She was referred to endocrinology, where she has followed up outpatient but is not satisfied with her care there. She states that they are very dismissive. She notes that the ED provider at wanted to admit her 2 days ago, but endocrinology stated that she could go home so she was discharged home. She states that she is not feeling any better and her thyroid levels keep climbing, so she is worried she is going to go into thyroid storm again despite taking methimazole and propranolol. She saw her PCP today for continued symptoms and was referred to the ED. No other concerns or complaints noted at this time. Of note, she is also followed by cardiology for POTS. She is managed with fludrocortisone and high salt diet in addition to the propranolol. Related Data Home Medications ?Medication ?Instructions ?Recorded ?Confirmed famotidine 20 mg tablet 20 mg PO DAILY 08/31/24 11/22/24 buspirone 5 mg tablet 5 mg PO HS 10/17/24 11/22/24 albuterol sulfate 90 mcg/actuation 1 puff inhalation Q4HP PRN 11/05/24 11/22/24 aerosol inhaler (Ventolin HFA) Shortness Of Breath Previous Rx's ?Medication ?Instructions ?Recorded cholecalciferol (vitamin D3) 25 100 mcg (4 x 25 mcg (1,000 unit)) 11/07/24 mcg (1,000 unit) tablet PO DAILY 30 days #120 tabs ferrous sulfate 325 mg (65 mg 325 mg PO BID #60 tabs 11/07/24 iron) tablet fludrocortisone 0.1 mg tablet 0.1 mg PO DAILY 30 days #30 tabs 11/07/24 propranolol 20 mg tablet 20 mg PO TID 30 days #90 tabs 11/07/24 sodium chloride 1,000 mg soluble 1,000 mg PO DAILY 30 days #30 tabs 11/07/24 tablet methimazole 10 mg tablet 10 mg PO BID #60 tabs 11/22/24 Allergies Allergy/AdvReac Type Severity Reaction Status Date / Time cinnamon Allergy Severe Swelling Verified 11/22/24 09:39 of Lip/Tongue/Throat amoxicillin (From Augmentin) Allergy Verified 11/22/24 09:39 clavulanic acid (From Allergy Verified 11/22/24 09:39 Augmentin) Penicillins Allergy Verified 11/22/24 09:39 PFSH [facility] Disclaimer: The information contained in this section may have been updated after the patient was seen, as this information can be updated by other users. Medical History (Updated 11/22/24 @ 14:25 by Padmini Wyatt APRN) Syncope Chest pain Hot flashes Hyperthyroidism Orthostatic syncope Tachycardia Autonomic dysfunction Abnormal thyroid blood test Anemia Elevated cortisol level IUD check up Encounter for insertion of intrauterine contraceptive device (IUD) Encounter for gynecological examination (general) (routine) without abnormal findings Weakness Syncope Indirect hyperbilirubinemia Vomiting and diarrhea Second trimester Hypokalemia Tachycardia Syncope Hyperemesis affecting , antepartum Vomiting Heart palpitations Hypertension affecting Panic attack Syncope Near syncope Palpitations Sinus tachycardia Chest pain during Depression Anxiety Palpitations IUD (intrauterine device) in place Adrenal disorder POTS (postural orthostatic tachycardia syndrome) Anxiety disorder affecting , antepartum Norovirus Enteritis due to Norovirus Elevated brain natriuretic peptide (BNP) level Gilbert's disease of unknown anatomic location Diarrhea Herpes simplex of female genitalia Tobacco dependence syndrome Surgical History Hx of cholecystectomy H/O hand surgery Hx of dilation and curettage Hx of tonsillectomy Family History Other Family history of myocardial infarction Family history of stroke Social History Smoking Status: Never smoker second hand exposure: Yes alcohol intake: former substance use type: denies use current occupational status: unemployed Travel in the last 8 weeks?: None housing: house Have you lived/traveled outside [place] in past 30 days?: No Contact w/someone who lives/traveled outside US past 30 days?: No Exposure to someone with infectious disease in past 14 days?: No Do you have a fever (greater than 100.4 F or 38 C)?: No Have you tested positive for COVID-19?: No Exposed to someone with COVID-19 in past 14 days?: No Do you have a sore throat?: No Do you have a cough?: No Do you have any weakness?: No Do you have any diarrhea?: No Are you experiencing any unusual bleeding?: No Do you have any muscle aches/pain?: No Do you have any abdominal pain?: No Are you experiencing loss of taste or smell?: No Other Medical History Have you received the Flu Vaccine for this season: No Have you received the Pneumonia Vaccine: No ROS Obtained: Yes All systems reviewed & no additional complaints except as documented Physical Exam General General appearance: alert and in no apparent distress Head Head exam: atraumatic and normocephalic Eye Eye exam: Present normal appearance, PERRL and EOMI ENT ENT exam: Present normal exam, normal oropharynx, mucous membranes moist and normal external ear exam Neck Neck exam: Present normal inspection, full ROM and trachea midline; Absent tenderness Chest Chest inspection: Present normal inspection and symmetric chest wall rise; Absent tenderness Respiratory Respiratory exam: Present normal lung sounds bilaterally; Absent respiratory distress, wheezes, stridor or accessory muscle use Cardiovascular Cardiovascular exam: Present regular rate and normal rhythm Abdominal Exam Abdominal exam: Present soft; Absent distention, tenderness or guarding Extremities Exam Extremities exam: Present normal inspection, full ROM and normal capillary refill; Absent tenderness or edema Back Exam Back exam: Present normal inspection and full ROM; Absent tenderness Neurological Exam Neurological exam: Present alert, oriented X3, CN II-XII intact and normal gait; Absent motor sensory deficit Psychiatric Psychiatric exam: Present normal affect and normal mood Skin Skin exam: Present warm and dry Medical Decision Making Medical Records Medical records reviewed: Yes I reviewed the patient's medical records. Screening: Per USPSTF and CDC recommendations, given the prevalence of disease in our region, it is our hospital?s policy to screen for HIV and viral Hepatitis for all patients aged 18 and over and those with ongoing risk factors. Paresh Inquiry Pt receiving controlled substance: No Vital Signs: 11/22/24 11:20 11/22/24 11:23 11/22/24 11:31 Temperature 98.2 F Temperature Source Oral Pulse Rate 75 83 Pulse Rate [Left Radial] 73 Pulse Rate [Orthostatic Lying Left] Pulse Rate [Orthostatic Sitting Left] Pulse Rate [Orthostatic Standing Left] Respiratory Rate 20 15 Blood Pressure 136/90 140/105 H Blood Pressure [Orthostatic Lying Right Arm] Blood Pressure [Orthostatic Sitting Right Arm] Blood Pressure [Orthostatic Standing Right Arm] Blood Pressure [Right Arm] 136/90 Blood Pressure Mean Blood Pressure Mean [Right Arm] 105 02 Sat by Pulse Oximetry 100 100 99 Oxygen Delivery Method Room Air Room Air Room Air 11/22/24 11:35 11/22/24 12:00 11/22/24 12:30 Temperature Temperature Source Pulse Rate 73 78 82 Pulse Rate [Left Radial] Pulse Rate [Orthostatic Lying Left] Pulse Rate [Orthostatic Sitting Left] Pulse Rate [Orthostatic Standing Left] Respiratory Rate 14 13 Blood Pressure 121/86 131/76 Blood Pressure [Orthostatic Lying Right Arm] Blood Pressure [Orthostatic Sitting Right Arm] Blood Pressure [Orthostatic Standing Right Arm] Blood Pressure [Right Arm] Blood Pressure Mean Blood Pressure Mean [Right Arm] 02 Sat by Pulse Oximetry 100 100 Oxygen Delivery Method Room Air Room Air 11/22/24 12:34 11/22/24 12:35 11/22/24 12:36 Temperature Temperature Source Pulse Rate 76 96 H Pulse Rate [Left Radial] Pulse Rate [Orthostatic Lying Left] 79 Pulse Rate [Orthostatic Sitting Left] 89 Pulse Rate [Orthostatic Standing Left] 93 H Respiratory Rate 13 21 Blood Pressure 113/68 127/80 Blood Pressure [Orthostatic Lying Right Arm] 113/68 Blood Pressure [Orthostatic Sitting Right Arm] 127/80 Blood Pressure [Orthostatic Standing Right Arm] 121/81 Blood Pressure [Right Arm] Blood Pressure Mean Blood Pressure Mean [Right Arm] 02 Sat by Pulse Oximetry 100 100 Oxygen Delivery Method Room Air Room Air 11/22/24 13:00 11/22/24 13:30 11/22/24 14:00 Temperature Temperature Source Pulse Rate 92 H 96 H 84 Pulse Rate [Left Radial] Pulse Rate [Orthostatic Lying Left] Pulse Rate [Orthostatic Sitting Left] Pulse Rate [Orthostatic Standing Left] Respiratory Rate 14 17 13 Blood Pressure 111/66 115/86 100/76 L Blood Pressure [Orthostatic Lying Right Arm] Blood Pressure [Orthostatic Sitting Right Arm] Blood Pressure [Orthostatic Standing Right Arm] Blood Pressure [Right Arm] Blood Pressure Mean 81 89 82 Blood Pressure Mean [Right Arm] 02 Sat by Pulse Oximetry 100 95 99 Oxygen Delivery Method 11/22/24 14:12 11/22/24 14:15 Temperature 98.2 F 98.2 F Temperature Source Oral Pulse Rate 86 96 H Pulse Rate [Left Radial] Pulse Rate [Orthostatic Lying Left] Pulse Rate [Orthostatic Sitting Left] Pulse Rate [Orthostatic Standing Left] Respiratory Rate 17 20 Blood Pressure 100/76 L 100/76 L Blood Pressure [Orthostatic Lying Right Arm] Blood Pressure [Orthostatic Sitting Right Arm] Blood Pressure [Orthostatic Standing Right Arm] Blood Pressure [Right Arm] Blood Pressure Mean Blood Pressure Mean [Right Arm] 02 Sat by Pulse Oximetry Oxygen Delivery Method Room Air Room Air Lab Data Lab results reviewed: Yes I reviewed the patient's lab results. Lab Results 11/22/24 11:49: WBC 4.7 L, RBC 4.87, Hgb 13.5, Hct 41.2, MCV 84.6, MCH 27.7, MCHC 32.8, RDW 12.5, Plt Count 177, MPV 11.8 H, Neut % (Auto) 62.9, Lymph % (Auto) 30.6, [place] % (Auto) 5.5, Eos % (Auto) 0.4, Baso % (Auto) 0.6, Neut # (Auto) 3.0, Lymph # (Auto) 1.4, [place] # (Auto) 0.3, Eos # (Auto) 0.0, Baso # (Auto) 0.0, Sodium 141, Potassium 4.5, Chloride 108 H, Carbon Dioxide 22, Anion Gap 15.5 H, BUN 12, Creatinine 0.70, Estimated Creat Clear 122, Estimated GFR 101, Est GFR ( Amer) 122, Glucose 90, Calcium 10.4 H, Magnesium 1.9, Total Bilirubin 1.6 H, AST 28, ALT 21, Alkaline Phosphatase 57, Total Protein 8.6 H D, Albumin 5.2 H, Globulin 3.4 H, Albumin/Globulin Ratio 1.5, TSH < 0.02 L, Thyroxine (T4) 19.1 H, Serum HCG, Qual Negative 11/22/24 11:53: Urine Color Yellow, Urine Appearance Clear, Urine pH 6.0, Ur Specific [place] 1.010, Urine Protein Negative, Urine Glucose (UA) Negative, Urine Ketones Negative, Urine Blood Negative, Urine Nitrate Negative, Urine Bilirubin Negative, Urine Urobilinogen 0.2, Ur Leukocyte Esterase Negative, Urine RBC None, Urine WBC None, Ur Squamous Epith Cells Occasional, Urine Bacteria Trace 11/22/24 11:49 11/22/24 11:49 Orders (Tests/Meds): ED MEDICATIONS Discontinued Medications Generic Name Dose Route Start Last Admin Trade Name Freq PRN Reason Stop Dose Admin Lactated Ringer's 1,000 mls @ 999 mls/hr 11/22/24 12:59 11/22/24 13:39 Lactated Ringer's 1000 Ml Bag IV 11/22/24 13:59 999 mls/hr .Q1H1M ONE Administration ORDERS Category Date Time Status Complete Blood Count Auto Diff Stat Lab 11/22/24 11:49 Completed Comprehensive Metabolic Panel Stat Lab 11/22/24 11:49 Completed MAG [Magnesium] Stat Lab 11/22/24 11:49 Completed Serum [HCG Qualitative, Serum] Stat Lab 11/22/24 11:49 Completed T4 (Thyroxine) Stat Lab 11/22/24 11:49 Completed TSH [Thyroid Stimulating Hormone] Stat Lab 11/22/24 11:49 Completed Triiodothyronine (T3) Free Stat Lab 11/22/24 11:49 Received UA [Urinalysis and Microscopic] Stat Lab 11/22/24 11:53 Completed ECG Data Tracing #1: I reviewed this ECG and interpreted as documented below: Normal sinus rhythm with sinus rhythm with a ventricular rate of [address] changes concerning for ischemia. Normal axis and intervals ECG initial impression date: 11/22/24 ECG initial impression time: 11:24 Medical Decision Narrative: In summary, this patient is a 24-year-old female presenting to the Emergency Department for evaluation of fatigue, lightheadedness, chest pressure, shortness of breath in the setting of hyperthyroidism and POTS. Differential diagnoses considered include but are not limited to symptomatic hypothyroidism, POTS, anxiety, ACS, dysrhythmia, thyroid. Ruling out the most morbid conditions drove assessment. It should be noted patient's history includes thyroiditis, POTS which are not at goal therapy. This complicates all aspects of care by increasing patient's risk for morbidity. I reviewed patient's past medical records and noted previous evaluations here in the ED, previous admission here to hospital, and previous evaluations at by cardiology and endocrinology as detailed in HPI. On exam, the patient is sitting upright in no acute distress. Vitals are normal and cardiac telemetry. EKG obtained is reassuring. At this time, clinically have not concern for thyroid storm. workup included CBC, CMP, TSH, T4, magnesium, phosphorus, test, EKG, orthostatic vital signs. On reassessment, the patient is resting comfortably with normal vitals on cardiac telemetry. Orthostatic vital signs obtained were normal. CBC is reassuring with only very mild leukopenia but not clinically significant. Anion gap is very mildly elevated, fluid resuscitation is ongoing with a liter bolus. She has very mild hypercalcemia. TSH is undetectable, T4 continues to be elevated. I called and had an interactive discussion with Dr. Joann Ladd with [facility] endocrinology, as the patient does not want to continue following up with because she is not satisfied with her care there. Dr. Ladd recommended increasing her methimazole to 10 mg twice daily and having her follow-up with them. I advised that she should have her PCP work on setting up a referral. Given that she does not have evidence of acute thyroid storm at this time with normal vitals and reassuring workup and exam, I feel the patient would be appropriate with discharge with very close outpatient follow-up. She was given instructions to help arrange this and her increased dose of methimazole. Strict return precautions were given Critical Care Critical Care Time Critical Care Time: No
[2024-11-22 12:34] LABS: Albumin Level 5.2 g/dl (3.5-5.0)
[2024-11-22 12:35] LABS: Chloride 108 mmol/L (98-107); Potassium 4.5 mmoL/L (3.5-5.1); Sodium 141 mmol/L (136-145)
[2024-11-22 12:35] LABS: Bacteria,Urine Trace /lpf; Squamous Epithelial Cell,Urine Occasional #/hpf (0-5)
[2024-11-22 12:37] LABS: Alanine Aminotransferase 21 U/L (12-78); Alkaline Phosphatase 57 U/L (38-126); Anion Gap 15.5 mEq/L (5-15); Aspartate Amino Transferase 28 U/L (14-36); Bilirubin,Total 1.6 mg/dl (0.2-1.3); Blood Urea Nitrogen 12 mg/dl (7-17); Carbon Dioxide 22 mmol/L (22.0-30.0); Creatinine Clearance Estimated 122 mL/min (50-200); Estimated Glomerular Filt Rate 101 ml/min (>60); GFR (African American) 122 ML/MIN (>60); HCG Qualitative, Serum Negative (Negative)
[2024-11-22 12:38] LABS: Albumin/Globulin Ratio 1.5 (1.1-1.8); Calcium 10.4 mg/dl (8.4-10.2); Globulin 3.4 g/dL (1.3-3.2); Glucose 90 mg/dl (74-100); Magnesium 1.9 mg/dl (1.6-2.3); Total Protein,Serum 8.6 g/dl (6.3-8.2)
[2024-11-22 12:55] LABS: T4 (Thyroxine) 19.1 ug/dl (5.53-11.0)
[2024-11-22 13:09] LABS: Thyroid Stimulating Hormone < 0.02 uIU/mL (0.465-4.68)
[2024-11-22] MEDS: LACTATED RINGERS 1000ML 1,000 ML 999 ML IV (13:39)
[2024-11-23 08:16] LABS: Triiodothyronine (T3) Free 5.7 pg/mL (2.0-4.4)
== END 2024-11-22 14:16 | disposition home or self-care (01) ==
PROVIDERS: Emergency Provider Emergency Medicine; PCP Nurse Practitioner Family
DX: R06.02 Shortness of breath (principal); E05.90 Thyrotoxicosis, unspecified without thyrotoxic crisis or storm; R42 Dizziness and giddiness; R53.83 Other fatigue
CPT/HCPCS: 80053; 81001; 83735; 84436; 84443; 84481; 84703; 85025; 93005; 96360; 99284; J7120

== ENCOUNTER 2024-11-22 14:25 | Outpatient (CLI) | payer MEDICAID, SELFPAY ==
[2024-11-22 15:39] LABS: Triiodothryronine (T3) Uptake 40 % (23.5-40.5)
[2024-11-22 15:41] LABS: Free T4 (Free Thyroxine) 2.63 ng/dl (0.78-2.19)
[2024-11-24 08:33] LABS: Triiodothyronine (T3) Free 5.2 pg/mL (2.0-4.4); Triiodothyronine (T3) Total 202 ng/dL (71-180)
[2024-11-24 22:18] LABS: Thyrotropin Receptor Antibody < 1.10 IU/L (0.00-1.75)
== END 2024-11-22 23:59 | disposition home or self-care (01) ==
LOC: LAB 14:26
PROVIDERS: PCP Nurse Practitioner Family; Visit Provider Nurse Practitioner Family
DX: O90.5 Postpartum thyroiditis (principal); E05.90 Thyrotoxicosis, unspecified without thyrotoxic crisis or storm
CPT/HCPCS: 36415; 83520; 84439; 84479; 84480; 84481

== ENCOUNTER 2024-11-29 18:56 | Observation (INO) | payer MEDICAID, SELFPAY ==
[2024-11-29] VITALS (7 sets, daily range): BP systolic 117–143; BP diastolic 73–96; PULSE 78–93; RESP 16–20; TEMP 36.4–36.7; O2SAT 100; BMI 25.1
--- NOTE | 2024-11-29 19:27 | ED_ITS ---
Discharge Plan Disposition Patient Disposition: Admitted Chief Complaint: Weakness Clinical Impressions Clinical Impression: Diarrhea, Generalized weakness, Near syncope Discharge ED Provider: Juni Leonardo General Adult HPI General Chief complaint: Weakness Stated complaint: Lightheaded,dizziness,high heart rate Time Seen by Provider: 11/29/24 19:02 Mode of Arrival: Ambulatory Source of Information: Patient Description of Symptoms (Recalled from ER Triage Doc. by RN): patient states she was in thyroid storm three weeks ago and this feels the same. c/o weakness, diarrhea, nausea, dizziness. History of Present Illness HPI narrative: Please note that above description of symptoms, in this electronic medical record under categorization of recalled from ER triage doctor by RN are reflective of an initial nursing assessment, however, is not reflective of my full history and physical exam that was personally taken and clarified. Consequentially, this preceding description of symptoms, which may include the patient's categorized chief complaint in the EMR, do not reflect my personal clinical impression, and the ultimate description of history of present illness and patient stated complaints should be deferred to this section of the note. Unless stated otherwise or congruent with this section of the note, additional signs, symptoms, or incongruence should be interpreted as inaccurate with my clinical impression. Related Data Home Medications ?Medication ?Instructions ?Recorded ?Confirmed famotidine 20 mg tablet 20 mg PO DAILY 08/31/24 11/28/24 buspirone 5 mg tablet 5 mg PO HS 10/17/24 11/28/24 albuterol sulfate 90 mcg/actuation 1 puff inhalation Q4HP PRN 11/05/24 11/28/24 aerosol inhaler (Ventolin HFA) Shortness Of Breath Previous Rx's ?Medication ?Instructions ?Recorded cholecalciferol (vitamin D3) 25 100 mcg (4 x 25 mcg (1,000 unit)) 11/07/24 mcg (1,000 unit) tablet PO DAILY 30 days #120 tabs fludrocortisone 0.1 mg tablet 0.1 mg PO DAILY 30 days #30 tabs 11/07/24 propranolol 20 mg tablet 20 mg PO TID 30 days #90 tabs 11/07/24 methimazole 10 mg tablet 10 mg PO BID #60 tabs 11/22/24 Allergies Allergy/AdvReac Type Severity Reaction Status Date / Time cinnamon Allergy Severe Swelling Verified 11/28/24 14:44 of Lip/Tongue/Throat amoxicillin (From Augmentin) Allergy Verified 11/28/24 14:44 clavulanic acid (From Allergy Verified 11/28/24 14:44 Augmentin) Penicillins Allergy Verified 11/28/24 14:44 PFSH [facility] Disclaimer: The information contained in this section may have been updated after the patient was seen, as this information can be updated by other users. Medical History (Updated 11/29/24 @ 21:42 by Juni Leonardo MD) Gilbert's disease Syncope Chest pain Hot flashes Hyperthyroidism Orthostatic syncope Tachycardia Autonomic dysfunction Abnormal thyroid blood test Anemia Elevated cortisol level IUD check up Encounter for insertion of intrauterine contraceptive device (IUD) Encounter for gynecological examination (general) (routine) without abnormal findings Weakness Syncope Indirect hyperbilirubinemia Vomiting and diarrhea Second trimester Hypokalemia Tachycardia Syncope Hyperemesis affecting , antepartum Vomiting Heart palpitations Hypertension affecting Panic attack Syncope Near syncope Palpitations Sinus tachycardia Chest pain during Depression Anxiety Palpitations IUD (intrauterine device) in place Adrenal disorder POTS (postural orthostatic tachycardia syndrome) Anxiety disorder affecting , antepartum Norovirus Enteritis due to Norovirus Elevated brain natriuretic peptide (BNP) level of unknown anatomic location Diarrhea Herpes simplex of female genitalia Tobacco dependence syndrome Surgical History Hx of cholecystectomy H/O hand surgery Hx of dilation and curettage Hx of tonsillectomy Family History Other Family history of myocardial infarction Family history of stroke Social History Smoking Status: Never smoker second hand exposure: Yes alcohol intake: former substance use type: denies use current occupational status: unemployed Travel in the last 8 weeks?: None housing: house Have you lived/traveled outside [place] in past 30 days?: No Contact w/someone who lives/traveled outside [place] past 30 days?: No Exposure to someone with infectious disease in past 14 days?: No Do you have a fever (greater than 100.4 F or 38 C)?: No Have you tested positive for COVID-19?: No Exposed to someone with COVID-19 in past 14 days?: No Do you have a sore throat?: No Do you have a cough?: No Do you have any weakness?: No Do you have any diarrhea?: No Are you experiencing any unusual bleeding?: No Do you have any muscle aches/pain?: No Do you have any abdominal pain?: No Are you experiencing loss of taste or smell?: No Other Medical History Have you received the Flu Vaccine for this season: No Have you received the Pneumonia Vaccine: No ROS Obtained: Yes All systems reviewed & no additional complaints except as documented Physical Exam General General appearance: alert and in no apparent distress Head Head exam: atraumatic and normocephalic Eye Eye exam: Present normal appearance, PERRL and EOMI Neck Neck exam: Present normal inspection, full ROM and trachea midline Respiratory Respiratory exam: Absent respiratory distress, wheezes, stridor, accessory muscle use or prolonged expiratory phase Cardiovascular Cardiovascular exam: Present other (Pulses equal symmetric in upper and lower extremities) Abdominal Exam Abdominal exam: Present soft; Absent distention, tenderness or pulsatile mass Extremities Exam Extremities exam: Absent edema Neurological Exam Neurological exam: Present alert, oriented X3 and CN II-XII intact; Absent motor sensory deficit Skin Skin exam: Present warm and dry; Absent diaphoresis or erythema Medical Decision Making Medical Records Medical records reviewed: Yes I reviewed the patient's medical records. Screening: Per USPSTF and CDC recommendations, given the prevalence of disease in our region, it is our hospital?s policy to screen for HIV and viral Hepatitis for all patients aged 18 and over and those with ongoing risk factors. Paresh Inquiry Pt receiving controlled substance: No Paresh was queried for this patient: No Vital Signs: 11/29/24 19:15 11/29/24 19:29 11/29/24 20:29 Temperature 98.1 F Temperature Source Oral Pulse Rate 93 H 92 H Pulse Rate [Left] 88 Respiratory Rate 18 Blood Pressure 143/93 H 118/80 Blood Pressure [Right Arm] 128/96 H Blood Pressure Mean [Right Arm] 106 Blood Pressure Source [Right Arm] Automatic Cuff 02 Sat by Pulse Oximetry 100 100 100 Oxygen Delivery Method Room Air Lab Data Lab Results 11/29/24 19:10: WBC 5.6, RBC 4.49, Hgb 12.6, Hct 37.4, MCV 83.3, MCH 28.1, MCHC 33.7, RDW 12.2, Plt Count 234, MPV 11.5 H, Neut % (Auto) 63.9, Lymph % (Auto) 28.7, Forest % (Auto) 6.0, Eos % (Auto) 0.5, Baso % (Auto) 0.7, Neut # (Auto) 3.6, Lymph # (Auto) 1.6, Forest # (Auto) 0.3, Eos # (Auto) 0.0, Baso # (Auto) 0.0, Sodium 139, Potassium 4.5, Chloride 113 H, Carbon Dioxide 18 L, Anion Gap 12.5, BUN 8, Creatinine 0.60, Estimated Creat Clear 144, Estimated GFR 121, Est GFR ( Amer) 146, Glucose 100, Calcium 9.3, Total Bilirubin 1.6 H, AST 37 H, ALT 20, Alkaline Phosphatase 48, Total Protein 7.7, Albumin 4.8, Globulin 2.9, Albumin/Globulin Ratio 1.7, TSH < 0.02 L, Thyroxine (T4) 17.7 H, HCG, Quant < 2, PTH Intact 66.7 H 11/29/24 19:10 11/29/24 19:10 Orders (Tests/Meds): ED MEDICATIONS Generic Name Dose Route Start Last Admin Trade Name Freq PRN Reason Stop Dose Admin Acetaminophen 650 mg 11/29/24 21:06 Acetaminophen 325mg Tab PO 12/29/24 21:05 Q4HP PRN Fever or Mild Pain (1-3) Hydrocodone Bitart/Acetaminophen 1 tab 11/29/24 21:06 Hydrocodone/Apap 5/325 Mg Tablet PO 12/29/24 21:05 Q4HP PRN Mild to Moderate Pain (1-6) Enoxaparin Sodium 40 mg 11/30/24 09:00 Enoxaparin 40mg/0.4ml Syringe SUBCUT 12/30/24 08:59 DAILY [place] Lactated Ringer's 1,000 mls @ 125 mls/hr 11/29/24 21:15 Lactated Ringer's 1000 Ml Bag IV 12/29/24 21:14 .Q8H [place] Ondansetron HCl 4 mg 11/29/24 21:06 Ondansetron 4mg/2ml Vial IV 12/29/24 21:05 Q8HP PRN Nausea Discontinued Medications Generic Name Dose Route Start Last Admin Trade Name Freq PRN Reason Stop Dose Admin Sodium Chloride 1,000 mls @ 999 mls/hr 11/29/24 20:30 11/29/24 20:37 Sod Chlor 0.9% 1000ml Bag IV 11/29/24 21:30 999 mls/hr .Q1H1M ONE Administration Propranolol HCl 0.5 mg 11/29/24 19:13 11/29/24 19:28 Propranolol 1mg/Ml Vial IV 11/29/24 19:14 0.5 mg ONCE ONE Administration ORDERS Category Date Time Status Basic Metabolic Panel [facility] Lab 11/30/24 06:00 Ordered Basic Metabolic Panel [facility] Lab 12/01/24 06:00 Ordered Basic Metabolic Panel [facility] Lab 12/02/24 06:00 Ordered Basic Metabolic Panel [facility] Lab 12/03/24 06:00 Ordered Basic Metabolic Panel [facility] Lab 12/04/24 06:00 Ordered Complete Blood Count Auto Diff [facility] Lab 11/30/24 06:00 Ordered Complete Blood Count Auto Diff [facility] Lab 12/01/24 06:00 Ordered Complete Blood Count Auto Diff [facility]AB Lab 12/02/24 06:00 Ordered Complete Blood Count Auto Diff [facility]AB Lab 12/03/24 06:00 Ordered Complete Blood Count Auto Diff AMLAB Lab 12/04/24 06:00 Ordered Complete Blood Count Auto Diff Stat Lab 11/29/24 19:10 Completed Comprehensive Metabolic Panel Stat Lab 11/29/24 19:10 Completed Free T4 (Free Thyroxine) AMLAB Lab 11/30/24 06:00 Ordered Free T4 (Free Thyroxine) [facility] Lab 12/01/24 06:00 Ordered Free T4 (Free Thyroxine) [facility] Lab 12/02/24 06:00 Ordered Free T4 (Free Thyroxine) [facility]AB Lab 12/03/24 06:00 Ordered Free T4 (Free Thyroxine) [facility]AB Lab 12/04/24 06:00 Ordered Free T4 (Free Thyroxine) Stat Lab 11/29/24 19:10 Received HCG,Quantitative Stat Lab 11/29/24 19:10 Completed Influenza A&B Antigens, Rapid [Rapid Influenza A&B Lab 11/29/24 21:16 Ordered Antigens] Routine Intact Parathyroid Hormone Stat Lab 11/29/24 19:10 Completed Mini Respiratory Panel Routine Lab 11/29/24 21:06 Ordered T4 (Thyroxine) Stat Lab 11/29/24 19:10 Completed TSH [Thyroid Stimulating Hormone] AMLAB Lab 11/30/24 06:00 Ordered TSH [Thyroid Stimulating Hormone] AMLAB Lab 12/01/24 06:00 Ordered TSH [Thyroid Stimulating Hormone] AMLAB Lab 12/02/24 06:00 Ordered TSH [Thyroid Stimulating Hormone] AMLAB Lab 12/03/24 06:00 Ordered TSH [Thyroid Stimulating Hormone] AMLAB Lab 12/04/24 06:00 Ordered TSH [Thyroid Stimulating Hormone] Stat Lab 11/29/24 19:10 Completed TSH [Thyroid Stimulating Hormone] Stat Lab 11/29/24 19:10 Received Stool Culture Stat Micro 11/29/24 21:06 Ordered Medical Decision Narrative: 24-year-old female with Gilbert syndrome, POTS syndrome, thyroiditis and Graves' disease palpitations. She states that she has been on fludrocortisone daily, propranolol daily, as well as methimazole daily for POTS and thyroid dysfunction. She states that she had actually feeling a little bit better, today she had multiple episodes of feeling lightheaded, multiple episodes of syncope, vomiting, diarrhea, and general malaise. Unable to do much of anything at home, so came in for further evaluation. No different than the last time she presented, states that her medications have been tolerated pretty well. History was obtained via conversation with patient. On arrival, patient hemodynamically stable, alert, oriented x4, appropriate, GCS 15, moving all extremities spontaneously, pupils equal and reactive to light. Full physical exam performed and significant for chronically ill-appearing female no acute distress. She is borderline tachycardic with heart rate in the upper 90s, but afebrile, mentating appropriately, no murmurs gallops or rubs, she is not red or flushed, lungs are clear, no lower extremity edema. Differential includes gastritis, gastroenteritis, thyroid dysfunction, , metabolic abnormality, endocrinologic abnormality, medication side effect, agranulocytosis secondary to medications, among others. Patient placed on continuous cardiac monitoring and continuous pulse ox with initial blood pressure 128/96, heart rate 88, saturation 100% on room air. Patient was given fluids and propranolol for symptomatic management and correction of underlying abnormalities. Workup independently interpreted and significant for nonactionable CBC or chemistry. Bicarb is a little bit low at 18 indicating some sort of metabolic acidosis versus GI losses, which I feel is more likely given the setting of diarrhea. Patient's bilirubin mildly elevated in the setting of Gilbert syndrome and T4 is remarkably trending down from 19.1- 17.7 just over the past few days. TSH still undetectable. On reevaluation, patient not feeling any better, nearly syncopized and standing up to go to the bathroom. Hospital medicine was contacted and case was discussed at length for admission in the setting of generalized weakness in the setting of diarrheal illness. I feel this is less likely be related to thyroid storm as her symptoms were improved, thyroid studies are actually improving, and she looks clinically well, borderline tachycardic, but normotensive, no secondary clinical signs of thyroid storm. She states that she does have 2 sick children at home that just recently got over viral illnesses, neither of them are vomiting and diarrhea, but they were URIs, with could be complicating the picture. Given patient presentation, workup, history, this most likely represents dehydration and gastroenteritis versus medication side effect. Because patient high risk for clinical decompensation, deemed appropriate for inpatient admission. Results were relayed to patient who voiced understanding and patient was agreeable to inpatient admission and management. Patient was admitted to the hospital for further definitive management. Clinical Nurse Educator disclaimer Much of this encounter note is an electronic staff electronic warfare officer spoken language to printed text. Electronic staff electronic warfare officer of the spoken language may permit errors. Although I have reviewed the note, some errors may still exist. Critical Care Critical Care Time Critical Care Time: No
[2024-11-29] MEDS: PROPRANOLOL 1 MG/ML 0.5 MG IV (19:28)
[2024-11-29 19:36] LABS: Basophils % 0.7 % (0.1-2.0); Eosinophils % 0.5 % (0.1-12.0); Hematocrit 37.4 % (37.0-47.0); Hemoglobin 12.6 g/dL (12.2-16.2); Immature Granulocytes # 0.01 10^3uL; Immature Granulocytes % 0.2 %; Lymphocytes # 1.6 K/mm3 (0.7-4.5); Lymphocytes % 28.7 % (10-50); Mean Corpuscular HGB Conc 33.7 g/dL (31.8-35.4); Mean Corpuscular Hemoglobin 28.1 pg (27.0-31.2); Mean Corpuscular Volume 83.3 fl (81-99); Mean Platelet Volume 11.5 fl (7.4-10.4); Monocytes # 0.3 K/mm3 (0.1-1.0); Neutrophils # 3.6 K/mm3 (1.8-7.8); Neutrophils % 63.9 % (37.0-80.0); Nucleated Red Blood Cells # 0 10^3/uL; Nucleated Red Blood Cells % 0 %; Platelet Count 234 K/mm3 (142-424); Red Blood Count 4.49 M/mm3 (4.20-5.40); Red Cell Distribution Width 12.2 % (11.5-17.5); Red Cell Distribution Width-SD 37.1 fL; White Blood Count 5.6 K/mm3 (4.8-10.8)
[2024-11-29 19:53] LABS: Intact Parathyroid Hormone 66.7 pg/mL (7.5-53.5)
[2024-11-29 19:58] LABS: T4 (Thyroxine) 17.7 ug/dl (5.53-11.0)
[2024-11-29 19:59] LABS: HCG,Quantitative < 2 mIU/ml (0-5.42)
[2024-11-29 20:13] LABS: Thyroid Stimulating Hormone < 0.02 uIU/mL (0.465-4.68)
[2024-11-29] MEDS: 0.9 % SODIUM CHLORIDE 1000ML 1,000 ML 999 ML IV (20:37)
--- NOTE | 2024-11-29 21:12 | P.HP_ITS ---
<Statement entered by Earle Gamble MD - 12/03/24 13:00> I personally evaluated the patient and agree with the plan of care as outlined by the JIGSAWYER. History of Present Illness *Admission Date: 11/29/24 *Reason for visit:: Passing out *History of present illness: This is a 24-year-old female who is known to our service line and has a past medical history significant for postural orthostatic tachycardia syndrome, vasovagal and orthostatics presyncope/syncope, hypothyroidism and is currently prescribed methimazole, Gilbert's syndrome, anxiety, and panic attacks who presents with a chief complaint of weakness, diarrhea, nausea, and dizziness. The patient's symptoms, she presented to the emergency room for evaluation. While in the emergency room, patient's heart rate was elevated above 100 she was given labetalol IV. There was an attempt to walk patient and she had a syncopal or near syncopal event while in the emergency room. Due to these findings, hospital medicine was consulted to admit patient for further management. During my evaluation of the patient, patient states that she was recently admitted and treated for the a forementioned symptomology. She states she had been doing well for the past 3 days; however, started to have multiple episodes of diarrhea (5 or more), and she had a syncopal episode at home and landed on her right side. Patient states she almost fell on her toddler when she passed out. As a result of her symptoms, patient is voicing an inability to perform her ADLs safely. She is currently denying any chest pain, lightheadedness, fever, chills, rigors, headache, or dyspnea. Patient does have some lig htheadedness and some shortness of breath but is slowly resolved. Additional pertinent vitals obtained include a TSH less than 0.02, T4 of 17.7, and PTH of 66.7. It is worth mentioning that patient's younger children recently were exposed to an upper respiratory tract infection. Patient was requesting to be swabbed for a URIs. [facility] Disclaimer: The information contained in this section may have been updated after the patient was seen, as this information can be updated by other users. Medical History (Updated 11/29/24 @ 21:22 by Lowell Arita APRN) Gilbert's disease Syncope Chest pain Hot flashes Hyperthyroidism Orthostatic syncope Tachycardia Autonomic dysfunction Abnormal thyroid blood test Anemia Elevated cortisol level IUD check up Encounter for insertion of intrauterine contraceptive device (IUD) Encounter for gynecological examination (general) (routine) without abnormal findings Weakness Syncope Indirect hyperbilirubinemia Vomiting and diarrhea Second trimester Hypokalemia Tachycardia Syncope Hyperemesis affecting , antepartum Vomiting Heart palpitations Hypertension affecting Panic attack Syncope Near syncope Palpitations Sinus tachycardia Chest pain during Depression Anxiety Palpitations IUD (intrauterine device) in place Adrenal disorder POTS (postural orthostatic tachycardia syndrome) Anxiety disorder affecting , antepartum Norovirus Enteritis due to Norovirus Elevated brain natriuretic peptide (BNP) level of unknown anatomic location Diarrhea Herpes simplex of female genitalia Tobacco dependence syndrome Surgical History Hx of cholecystectomy H/O hand surgery Hx of dilation and curettage Hx of tonsillectomy Family History Other Family history of myocardial infarction Family history of stroke Social History Smoking Status: Never smoker second hand exposure: Yes alcohol intake: former substance use type: denies use current occupational status: unemployed Travel in the last 8 weeks?: None housing: house Have you lived/traveled outside [place] in past 30 days?: No Contact w/someone who lives/traveled outside US past 30 days?: No Exposure to someone with infectious disease in past 14 days?: No Do you have a fever (greater than 100.4 F or 38 C)?: No Have you tested positive for COVID-19?: No Exposed to someone with COVID-19 in past 14 days?: No Do you have a sore throat?: No Do you have a cough?: No Do you have any weakness?: No Do you have any diarrhea?: No Are you experiencing any unusual bleeding?: No Do you have any muscle aches/pain?: No Do you have any abdominal pain?: No Are you experiencing loss of taste or smell?: No Other Medical History Have you received the Flu Vaccine for this season: No Have you received the Pneumonia Vaccine: No Review of Systems Review of Systems Review of systems:: pertinent systems reviewed and negative unless documented below Constitutional Constitutional: Reports fatigue and Reports lethargy Eyes Eyes: Reports system reviewed and no additional complaints, except as documented ENT Ears, Nose, Mouth, and Throat: Reports system reviewed and no additional complaints, except as documented *Cardiovascular Cardiovascular: Reports dyspnea, Reports lightheadedness and Reports palpitations *Respiratory Respiratory: Reports dyspnea *Gastrointestinal Gastrointestinal: Reports diarrhea *Genitourinary Genitourinary: Reports system reviewed and no additional complaints, except as documented *Musculoskeletal Musculoskeletal: Reports system reviewed and no additional complaints, except as documented Integumentary/Breasts Skin/Breast: Reports system reviewed and no additional complaints, except as documented *Neurologic Neurologic: Reports system reviewed and no additional complaints, except as documented Psychiatric Psychiatric: Reports system reviewed and no additional complaints, except as documented Endocrine Endocrine: Reports fatigue and Reports palpitations Hematologic/Lymphatic Hematologic/Lymphatic: Reports system reviewed and no additional complaints, except as documented Allergic/Immunologic Allergic/Immunologic: Reports system reviewed and no additional complaints, except as documented Meds Home Medications and Allergies Home Medications ?Medication ?Instructions ?Recorded ?Confirmed ?Type famotidine 20 mg tablet 20 mg PO DAILY 08/31/24 11/28/24 History buspirone 5 mg tablet 5 mg PO HS 10/17/24 11/28/24 History albuterol sulfate 90 mcg/actuation 1 puff inhalation Q4HP PRN 11/05/24 11/28/24 History aerosol inhaler (Ventolin HFA) Shortness Of Breath cholecalciferol (vitamin D3) 25 100 mcg (4 x 25 mcg (1,000 unit)) 11/07/24 11/28/24 Rx mcg (1,000 unit) tablet PO DAILY 30 days #120 tabs fludrocortisone 0.1 mg tablet 0.1 mg PO DAILY 30 days #30 tabs 11/07/24 11/28/24 Rx propranolol 20 mg tablet 20 mg PO TID 30 days #90 tabs 11/07/24 11/28/24 Rx methimazole 10 mg tablet 10 mg PO BID #60 tabs 11/22/24 11/28/24 Rx New Prescriptions to Start Prescriptions: Allergies Allergy/AdvReac Type Severity Reaction Status Date / Time cinnamon Allergy Severe Swelling Verified 11/28/24 14:44 of Lip/Tongue/Throat amoxicillin (From Augmentin) Allergy Verified 11/28/24 14:44 clavulanic acid (From Allergy Verified 11/28/24 14:44 Augmentin) Penicillins Allergy Verified 11/28/24 14:44 Exam Data for Last 24 hours Vital signs and Labs for Last 24 Hours: Temp Pulse Resp BP Pulse Ox O2 Del Method 98.1 F 92 H 18 118/80 100 Room Air 11/29/24 19:15 11/29/24 20:29 11/29/24 19:15 11/29/24 20:29 11/29/24 20:29 11/29/24 19:15 Laboratory Results - last 24 hr 11/29/24 19:10: WBC 5.6, RBC 4.49, Hgb 12.6, Hct 37.4, MCV 83.3, MCH 28.1, MCHC 33.7, RDW 12.2, Plt Count 234, MPV 11.5 H, Neut % (Auto) 63.9, Lymph % (Auto) 28.7, [place] % (Auto) 6.0, Eos % (Auto) 0.5, Baso % (Auto) 0.7, Neut # (Auto) 3.6, Lymph # (Auto) 1.6, [place] # (Auto) 0.3, Eos # (Auto) 0.0, Baso # (Auto) 0.0, TSH < 0.02 L, Thyroxine (T4) 17.7 H, HCG, Quant < 2, PTH Intact 66.7 H I & O for Last 24 hours: Intake & Output 11/26/24 11/27/24 11/28/24 11/29/24 23:59 23:59 23:59 23:59 Weight 64.41 kg Constitutional Constitutional: no acute distress and thin *Routine HEENT Exam Head: Present normocephalic and atraumatic Eye: Present EOMI and PERRL ENT: Present mucous membranes moist *Routine Neck Exam Neck: Present supple, full ROM and trachea midline *Routine Respiratory Exam Respiratory: Present CTA bilaterally, normal respiratory effort, able to speak in complete sentences and symmetric chest movement *Routine Cardiovascular Exam Cardiovascular: Present RRR, Normal S1 and Normal S2 *Routine Abdominal Exam Abdominal: Present soft and normoactive bowel sounds *Routine Rectal Exam Rectal:: deferred *Routine Genitalia Exam Genitalia:: deferred *Routine Extremities Exam Extremities: Present full ROM, pulses intact and normal capillary refill Routine Back/Spine/Pelvis Exam Back/Spine: Present full ROM *Routine Skin Exam Skin: Present warm and normal turgor *Routine Neurological Exam Neurological: Present alert, oriented X3, CN II-XII intact and moving all extremities Routine Psychiatric Exam Psychiatric: Present normal affect, normal thought process, cooperative and good insight H&P: Result Impressions 24-year-old female who has known POTS with Graves' disease/hypothyroidism presents with GI symptoms to include diarrhea nausea vomiting and syncope. Assessment and Plan *Assessment and plan (1) Syncope: Status: Acute Qualifiers: Syncope type: unspecified Qualified Code(s): R55 - Syncope and collapse Category: Medical Code(s): R55 - Syncope and collapse (2) Hyperthyroidism: Status: Acute Category: Medical Code(s): E05.90 - Thyrotoxicosis, unspecified without thyrotoxic crisis or storm (3) Gastroenteritis: Status: Acute Category: Medical Code(s): K52.9 - Noninfective gastroenteritis and colitis, unspecified (4) Dehydration: Status: Acute Category: Medical Code(s): E86.0 - Dehydration Plan Assessment: Syncope - 2D echo obtained in November 2023 reveals normal biventricular function - More than likely her syncopal episodes are due to the tachycardia from chronic illness of hyperparathyroidism Hypothyroidism - Will continue patient's methimazole - Will continue labetalol Sinus tachycardia - Patient's tachycardia has improved with IV hydration and IV labetalol - Will continue to monitor Gastroenteritis - Will obtain stool specimen for culture Dehydration -LR at 125 mL he is now Plan: Admit patient to the MedSurg unit on telemetry Cardiac diet Will trend T4 and TSH Will obtain mini respiratory panel CBC/BMP daily 40 mg Lovenox subcu daily for DVT prophylax 5 mg [place] p.o. every 4 hours for moderate pain 4 mg Zofran IV push to 8 hours for nausea Will obtain stool for culture Full code Will discuss this case with attending physician Dr. Gamble in the look for tomorrow put weight 2 rate was without urology, he was
[2024-11-29 21:28] LABS: Alanine Aminotransferase 20 U/L (12-78); Albumin Level 4.8 g/dl (3.5-5.0); Albumin/Globulin Ratio 1.7 (1.1-1.8); Alkaline Phosphatase 48 U/L (38-126); Anion Gap 12.5 mEq/L (5-15); Aspartate Amino Transferase 37 U/L (14-36); Bilirubin,Total 1.6 mg/dl (0.2-1.3); Blood Urea Nitrogen 8 mg/dl (7-17); Calcium 9.3 mg/dl (8.4-10.2); Carbon Dioxide 18 mmol/L (22.0-30.0); Chloride 113 mmol/L (98-107); Creatinine Clearance Estimated 144 mL/min (50-200); Estimated Glomerular Filt Rate 121 ml/min (>60); GFR (African American) 146 ML/MIN (>60); Globulin 2.9 g/dL (1.3-3.2); Glucose 100 mg/dl (74-100); Potassium 4.5 mmoL/L (3.5-5.1); Sodium 139 mmol/L (136-145); Total Protein,Serum 7.7 g/dl (6.3-8.2)
--- NOTE | 2024-11-29 21:37 | PC.NURSE ---
Report called to Jose for hospital admission to room 200
[2024-11-29 21:40] LABS: Free T4 (Free Thyroxine) 2.71 ng/dl (0.78-2.19)
[2024-11-29 21:54] LABS: Thyroid Stimulating Hormone < 0.02 uIU/mL (0.465-4.68)
--- NOTE | 2024-11-29 21:57 | PC.NURSE ---
Patient arrived to floor via wheelchair from ED at 21:55.
[2024-11-29] MEDS: LACTATED RINGERS 1000ML 1,000 ML 125 ML IV (22:06)
[2024-11-29 22:34] LABS: Coronavirus 19, PCR Not Detected (NotDetected); Human Rhinovirus Not Detected (NotDetected); Influenza A, PCR Not Detected (NotDetected); Influenza B, PCR Not Detected (NotDetected); Respiratory Syncytial Virus Not Detected (NotDetected)
[2024-11-29] MEDS: BUSPIRONE HCL 5 MG TABLET PO (23:54)
[2024-11-30] VITALS (7 sets, daily range): BP systolic 114–138; BP diastolic 57–82; PULSE 70–120; RESP 14–18; TEMP 36.4–37; O2SAT 98–100; BMI 23.3
[2024-11-30] MEDS: LACTATED RINGERS 1000ML 1,000 ML 125 ML IV ×2 (05:36→18:15)
[2024-11-30 06:52] LABS: Immature Granulocytes # 0.01 10^3uL; Immature Granulocytes % 0.2 %; Lymphocytes # 1.3 K/mm3 (0.7-4.5); Mean Corpuscular HGB Conc 32.9 g/dL (31.8-35.4); Monocytes # 0.4 K/mm3 (0.1-1.0); Monocytes % 6.7 % (1.7-9.3); Neutrophils # 3.5 K/mm3 (1.8-7.8); Nucleated Red Blood Cells # 0 10^3/uL; Nucleated Red Blood Cells % 0 %; Red Cell Distribution Width 12.1 % (11.5-17.5)
[2024-11-30 06:57] LABS: Anion Gap 3.4 mEq/L (5-15); Blood Urea Nitrogen 5 mg/dl (7-17); Calcium 8.5 mg/dl (8.4-10.2); Carbon Dioxide 21 mmol/L (22.0-30.0); Chloride 115 mmol/L (98-107); Creatinine Clearance Estimated 172 mL/min (50-200); Estimated Glomerular Filt Rate 149 ml/min (>60); GFR (African American) 180 ML/MIN (>60); Glucose 88 mg/dl (74-100); Potassium 3.4 mmoL/L (3.5-5.1); Sodium 136 mmol/L (136-145)
[2024-11-30 07:02] LABS: Basophils % 0.6 % (0.1-2.0); Eosinophils # 0.1 Kmm3 (0.0-0.4); Hematocrit 30.4 % (37.0-47.0); Lymphocytes % 25.3 % (10-50); Mean Corpuscular Hemoglobin 27.4 pg (27.0-31.2); Mean Corpuscular Volume 83.3 fl (81-99); Mean Platelet Volume 10.9 fl (7.4-10.4); Neutrophils % 66.2 % (37.0-80.0); Platelet Count 154 K/mm3 (142-424); Red Blood Count 3.65 M/mm3 (4.20-5.40); Red Cell Distribution Width-SD 37.1 fL; White Blood Count 5.3 K/mm3 (4.8-10.8)
[2024-11-30 07:35] LABS: Free T4 (Free Thyroxine) 2.49 ng/dl (0.78-2.19)
--- NOTE | 2024-11-30 07:48 | HMH.PHAINT1 ---
Pharmacy Intervention Comments: HOME MEDICATION LIST VERIFIED USING LIST FROM OUTPATIENT PHARMACY AND PT INTERVIEW
[2024-11-30 07:49] LABS: Thyroid Stimulating Hormone < 0.02 uIU/mL (0.465-4.68)
[2024-11-30] MEDS: FAMOTIDINE 20MG TABLET 20 MG PO (08:01)
[2024-11-30] MEDS: FLUDROCORTISONE 0.1MG TABLET 0.1 MG PO (08:02)
[2024-11-30] MEDS: PROPRANOLOL 20MG TAB 20 MG PO ×2 (08:02→12:25)
[2024-11-30] MEDS: ONDANSETRON 4MG/2ML VIAL 4 MG IV (08:02)
[2024-11-30] MEDS: ENOXAPARIN 40MG/0.4ML SYRINGE 40 MG SUBCUT (08:09)
--- NOTE | 2024-11-30 10:20 | HMH.PTEV ---
Physical Therapy Evaluation Rehab PT IP Evaluation Start: 11/30/24 00:12 Freq: ONCE Status: Active Protocol: Document 11/30/24 09:10 PHORNE (Rec: 11/30/24 10:20 PHORNE [id number]) Subjective/History History History This is a 24-year-old female who is known to our service line and has a past medical history significant for postural orthostatic tachycardia syndrome, vasovagal and orthostatics presyncope/ syncope, hypothyroidism and is currently prescribed methimazole, Gilbert's syndrome, anxiety, and panic attacks who presents with a chief complaint of weakness, diarrhea, nausea, and dizziness. Patient currently lives at home with her and toddler, and requires assistance for bathing, cooking, and transfers. Pt currently is non-ambulatory and uses a WC due to her syncope episodes. Subjective Subjective Patient presents resting in bed with her at bedside. She is alert and oriented x4 and is willing to participate with therapy this am. She states that she feels extremely out of breath and lightheaded when she sits up and stands, and is unable to care for her child due to her condition. Pt's HR sitting up ~100 bpm and while standing up to 141. She states that she has lost endurance due to her inability to exercise or ambulate. [facility] How much help from another person do you currently need... Turning from your back to your side None while in a flat bed without using bedrails? Moving from lying on back to sitting on A little the side of a flat bed without using bedrails? Moving to and from a bed to a chair ( A little including a wheelchair)? Standing up from a chair using your arms A little ? (e.g., wheelchair, bedside chair) Walking in hospital room? A lot Climbing 3-5 steps with a railing? A lot Mobility Score 17 Mobility Level [facility] Mobility Calculator Mobility 5 Stand (1 or more minutes) Rehab PT IP Eval Objective Appearance Patient Behavior Appropriate,Cooperative Patient Orientation Person,Place,Time Difficulty following instructions none Speech Pattern Clear,Appropriate Ambulation Patient Able to Ambulate No Balance Ability to Arise Able, uses arms to help Sitting Balance Steady, safe Standing Balance Steady, wide stance Dynamic Sitting Balance Ability Normal Dynamic Standing Balance Ability Fair Transfers Bed Transfer Ability Contact Guard/Hand Hold Chair Transfer Ability Contact Guard/Hand Hold Sit to Stand Bed Transfer Ability Minimal x 2 (25% assist) Sit to Stand Chair Transfer Ability Minimal x 2 (25% assist) Rehab PT IP prob,goals,plan Problems Date of Evaluation: 11/30/24 Discharge Plan PT Discharge Plan Patient is currently most appropriate to return home once medically stable for d/c. Skilled acute therapy is not currently indicated as she is currently at her prior baseline for all mobility, and her medical condition is limiting her ability to participate in PT. Recommend outpatient therapy services to further improve endurance during transfers and ambulation and LE strength. Eval Complexity Eval Charge Codes 91985 - High Complexity PHYSICIAN CERTIFICATION: I certify the specified therapy services for Francy Delarosa are required, authorized, and reviewed every 30 days.
--- NOTE | 2024-11-30 19:07 | PC.NURSE ---
A&OX4. TOLERATING RA WELL. PT HAS RESTED IN BED MAJORITY OF SHIFT. IS ABLE TO GET UP TO THE BEDSIDE COMMODE WITH X1 ASSIST. TOLERATES FAIRLY WELL. HEART RATE USUALLY GETS UP TO 130S WITH ACTIVITY, AND PT FEELS LIGHTHEADED, FATIGUED, AND GETS COLD SWEATS. PT REBOUNDS QUICKLY. RECEIVING IV FLUIDS PER MAR. HAS NOT HAD AN APPETITE, BUT IS TAKING IN SOME FLUIDS. PT HAS HAD MULTIPLE EPISODES OF DIARRHEA, MD AWARE AND NO STOOL SAMPLE NEEDED. PATIENT STATES SHE FEELS SICK , LIKE SHE HAS THE FLU. NO EPISODES OF PASSING OUT THIS SHIFT. PATIENT IS IN GOOD SPIRITS. NO OTHER NEEDS OR C/O NOTED AT THIS TIME. VSS.
[2024-11-30] MEDS: BUSPIRONE HCL 5 MG TABLET PO (20:05)
--- NOTE | 2024-11-30 20:36 | P.PN_ITS ---
Subjective *Date: 11/30/24 *Time: 20:36 Interval history: Patient still symptomatic, feeling dizzy with ambulation. Will increase propranolol to 30 mg 3 times daily. Started salt tab. Exam Data for Last 24 hours Vital signs and Labs for Last 24 Hours: Temp Pulse Resp BP Pulse Ox O2 Del Method 98.1 F 89 16 127/68 98 Room Air 11/30/24 20:00 11/30/24 20:00 11/30/24 20:00 11/30/24 20:00 11/30/24 20:00 11/30/24 20:00 Laboratory Results - last 24 hr 11/29/24 19:10: Sodium 139, Potassium 4.5, Chloride 113 H, Carbon Dioxide 18 L, Anion Gap 12.5, BUN 8, Creatinine 0.60, Estimated Creat Clear 144, Estimated GFR 121, Est GFR ( Amer) 146, Glucose 100, Calcium 9.3, Total Bilirubin 1.6 H , AST 37 H, ALT 20, Alkaline Phosphatase 48, Total Protein 7.7, Albumin 4.8, Globulin 2.9, Albumin/Globulin Ratio 1.7, TSH < 0.02 L, Free T4 2.71 H 11/29/24 22:30: SARS-CoV-2 (PCR) Not detected, Influenza Type A (PCR) Not detected, Influenza Type B (PCR) Not detected, RSV (PCR) Not detected, Rhinovirus (PCR) Not detected 11/30/24 06:34: WBC 5.3, RBC 3.65 L, Hgb 10.0 L D, Hct 30.4 L, MCV 83.3, MCH 27.4, MCHC 32.9, RDW 12.1, Plt Count 154 D, MPV 10.9 H, Neut % (Auto) 66.2, Lymph % (Auto) 25.3, [place] % (Auto) 6.7, Eos % (Auto) 1.0, Baso % (Auto) 0.6, Neut # (Auto) 3.5, Lymph # (Auto) 1.3, [place] # (Auto) 0.4, Eos # (Auto) 0.1, Baso # (Auto) 0.0, Sodium 136, Potassium 3.4 L D, Chloride 115 H, Carbon Dioxide 21 L , Anion Gap 3.4 L, BUN 5 L D, Creatinine 0.50 L, Estimated Creat Clear 172, Estimated GFR 149, Est GFR ( Amer) 180 D, Glucose 88, Calcium 8.5, TSH < 0.02 L, Free T4 2.49 H I & O for Last 24 hours: Intake & Output 11/27/24 11/28/24 11/29/24 11/30/24 23:59 23:59 23:59 23:59 Intake Total 1060 / 1060 Output Total 0 / 0 100 / 100 Balance 0 / 1000 960 / 960 Weight 64.41 kg 63.73 kg Assessment and Plan *Assessment and plan (1) thyroiditis: Status: Acute Category: Medical Code(s): O90.5 - thyroiditis Plan Francy Delarosa is a 24-year-old female who presented with palpitations, lightheadedness, diarrhea, presyncope and was admitted for hyperthyroidism and POTS. # thyroiditis #Postural orthostatic tachycardia syndrome (POTS) ? Patient is 5 months , and unfortunately has developed thyroiditis. Previous TSH prior to normal. ? Patient has also been experiencing weight loss, palpitations, lightheadedness, diarrhea for a few months since . ? She states she has been struggling with longstanding POTS, has had numerous syncopal events. ? Thyroid peroxidase antibodies, thyroglobulin levels elevated in September. Thyroid-stimulating, thyroid receptor antibodies pending though likely to be normal. - Recently admitted to our facility and was discharged in stable condition with propranolol 20 mg 3 times daily, for the cortisone 0.1 mg, salt tab. ? Has since followed up with and [facility] endocrinology, have started and uptitrated methimazole to 10 mg twice daily refractory symptomatic thyroiditis. ? Patient states over the past week she has become more symptomatic, presumably because her kids have been sick with a viral illness. Respiratory panel negative. ? Will uptitrate propranolol to 30 mg 3 times daily. ? Continue fludrocortisone 0.1 mg daily. ? Continue salt tab. ? Continue NS 125 mL/h. #Iron deficiency anemia #Low vitamin D ? Ferritin 5.15. Vitamin D level 18.7. Hemoglobin 10.1. B12, folate levels normal. ? Continue home vitamin D3, p.o. sulfate.
[2024-11-30] MEDS: 0.9 % SODIUM CHLORIDE 1000ML 1,000 ML 100 ML IV (22:03)
[2024-11-30] MEDS: PROPRANOLOL 20MG TAB 30 MG PO (23:37)
[2024-12-01] VITALS: BP 124/68; PULSE 109; PULSE 95; RESP 14; TEMP 37.4; O2SAT 99
[2024-12-01] MEDS: ACETAMINOPHEN 325MG TAB 650 MG PO ×2 (00:54→12:25)
[2024-12-01 04:00] VITALS: BP 123/78; PULSE 75; PULSE 96; RESP 16; TEMP 36.9; O2SAT 98; BMI 24.1
--- NOTE | 2024-12-01 04:25 | PC.NURSE ---
Pt AOx4. Doing well this shift. States that when she moves, she feels like her heart starts racing. C/o body aches and stated that she felt like she was running a fever. Administered prn tylenol. Currently resting in bed with eyes closed. Respirations even and unlabored. Bed is low, locked, and call light is in reach.
[2024-12-01 06:13] LABS: Basophils % 0.2 % (0.1-2.0); Eosinophils % 0.9 % (0.1-12.0); Hematocrit 29.7 % (37.0-47.0); Hemoglobin 9.8 g/dL (12.2-16.2); Immature Granulocytes # 0 10^3uL; Immature Granulocytes % 0 %; Lymphocytes # 1.2 K/mm3 (0.7-4.5); Mean Corpuscular Hemoglobin 27.7 pg (27.0-31.2); Mean Corpuscular Volume 83.9 fl (81-99); Mean Platelet Volume 11.2 fl (7.4-10.4); Monocytes # 0.4 K/mm3 (0.1-1.0); Neutrophils # 2.9 K/mm3 (1.8-7.8); Neutrophils % 62.9 % (37.0-80.0); Nucleated Red Blood Cells # 0 10^3/uL; Nucleated Red Blood Cells % 0 %; Platelet Count 146 K/mm3 (142-424); Red Blood Count 3.54 M/mm3 (4.20-5.40); Red Cell Distribution Width 12.2 % (11.5-17.5); Red Cell Distribution Width-SD 37.3 fL; White Blood Count 4.6 K/mm3 (4.8-10.8)
[2024-12-01 06:30] LABS: Anion Gap 5.4 mEq/L (5-15); Blood Urea Nitrogen 3 mg/dl (7-17); Calcium 8.6 mg/dl (8.4-10.2); Carbon Dioxide 21 mmol/L (22.0-30.0); Chloride 113 mmol/L (98-107); Creatinine Clearance Estimated 177 mL/min (50-200); Estimated Glomerular Filt Rate 149 ml/min (>60); GFR (African American) 180 ML/MIN (>60); Glucose 79 mg/dl (74-100); Potassium 3.4 mmoL/L (3.5-5.1); Sodium 136 mmol/L (136-145)
[2024-12-01] MEDS: 0.9 % SODIUM CHLORIDE 1000ML 1,000 ML 100 ML IV (06:31)
[2024-12-01 06:55] LABS: Free T4 (Free Thyroxine) 2.37 ng/dl (0.78-2.19)
[2024-12-01 08:00] VITALS: BP 126/62; PULSE 81; RESP 18; TEMP 36.8; O2SAT 96
[2024-12-01 08:05] LABS: Thyroid Stimulating Hormone < 0.02 uIU/mL (0.465-4.68)
[2024-12-01] MEDS: ENOXAPARIN 40MG/0.4ML SYRINGE 40 MG SUBCUT (09:01)
[2024-12-01] MEDS: FAMOTIDINE 20MG TABLET 20 MG PO (09:01)
[2024-12-01] MEDS: FLUTICASONE PROP 50MCG NASAL SPRAY 16GM 1 SPRAY NS (09:01)
[2024-12-01] MEDS: FLUDROCORTISONE 0.1MG TABLET 0.1 MG PO (09:01)
[2024-12-01] MEDS: PROPRANOLOL 20MG TAB 30 MG PO ×2 (09:02→13:48)
[2024-12-01 09:14] VITALS: BP 106/42; BP 125/69; BP 125/77; PULSE 107; PULSE 82; PULSE 92
[2024-12-01 09:18] LABS: Triiodothyronine (T3) Free 5.2 pg/mL (2.0-4.4)
[2024-12-01] MEDS: POTASSIUM CHLORIDE 20MEQ TAB 40 MEQ PO (09:46)
[2024-12-01] MEDS: SODIUM CHLORIDE 1,000MG TABLET 1000 MG PO ×2 (10:40→12:25)
--- NOTE | 2024-12-01 10:57 | PC.NURSE ---
pt ambulated halls independently with standby assistance. pt ambulated 50 ft. HR remained between 95-100. pt expressed slight dizziness, but states that this is similar to what happens at home when ambulating a similar distance.
--- NOTE | 2024-12-01 11:46 | CARE MANAGER ---
Addendum entered by Lisa Albrecht RN 12/01/24 11:57: Patient requested it be from [facility]. Inforamtion sent. Original Note: Patient requires assistance with ambulation due to mobility impairment that cannot be corrected with a cane, but there is potential for ambulation.
[2024-12-01 12:34] LABS: Adenovirus,PCR Not Detected (NotDetected); Bordetella Pertussis Not Detected (NotDetected); Chlamydophila Pneumoniae, PCR Not Detected (NotDetected); Coronavirus 19, PCR Not Detected (NotDetected); Coronavirus 229E Not Detected (NotDetected); Coronavirus NL63 Not Detected (NotDetected); Coronavirus OC43 Not Detected (NotDetected); Coronovirus HKU1,PCR Not Detected (NotDetected); Influenza A, PCR Not Detected (NotDetected); Influenza AH1, 2009 Not Detected (NotDetected); Influenza AH1, PCR Not Detected (NotDetected); Influenza AH3,PCR Not Detected (NotDetected); Influenza B, PCR Not Detected (NotDetected); Mycoplasma Pneumoniae, PCR Not Detected (NotDetected); Parainfluenza 1, PCR Not Detected (NotDetected); Parainfluenza 2, PCR Not Detected (NotDetected); Parainfluenza 3, PCR Not Detected (NotDetected); Parainfluenza 4, PCR Not Detected (NotDetected); Respiratory Syncytial Virus Not Detected (NotDetected); Rhinovirus/Enterovirus Not Detected (NotDetected)
--- NOTE | 2024-12-01 12:37 | EXP.DC.SUM ---
General Admission date:: 11/29/24 HPI HPI HPI: This is a 24-year-old female who is known to our service line and has a past medical history significant for postural orthostatic tachycardia syndrome, vasovagal and orthostatics presyncope/syncope, hypothyroidism and is currently prescribed methimazole, Gilbert's syndrome, anxiety, and panic attacks who presents with a chief complaint of weakness, diarrhea, nausea, and dizziness. The patient's symptoms, she presented to the emergency room for evaluation. While in the emergency room, patient's heart rate was elevated above 100 she was given labetalol IV. There was an attempt to walk patient and she had a syncopal or near syncopal event while in the emergency room. Due to these findings, hospital medicine was consulted to admit patient for further management. During my evaluation of the patient, patient states that she was recently admitted and treated for the a forementioned symptomology. She states she had been doing well for the past 3 days; however, started to have multiple episodes of diarrhea (5 or more), and she had a syncopal episode at home and landed on her right side. Patient states she almost fell on her toddler when she passed out. As a result of her symptoms, patient is voicing an inability to perform her ADLs safely. She is currently denying any chest pain, lightheadedness, fever, chills, rigors, headache, or dyspnea. Patient does have some lightheadedness and some shortness of breath but is slowly resolved. Additional pertinent vitals obtained include a TSH less than 0.02, T4 of 17.7, and PTH of 66.7. It is worth mentioning that patient's younger children recently were exposed to an upper respiratory tract infection. Patient was requesting to be swabbed for a URIs. Hospital Course Hospital Course Hospital Course: Francy Delarosa is a 24-year-old female who presented with palpitations, lightheadedness, diarrhea, presyncope and was admitted for hyperthyroidism and POTS. # thyroiditis #Postural orthostatic tachycardia syndrome (POTS) #Human metapneumovirus ? Patient is 5 months , and unfortunately has developed thyroiditis. Previous TSH prior to normal. ? Patient has also been experiencing weight loss, palpitations, lightheadedness, diarrhea for a few months since . ? She states she has been struggling with longstanding POTS, has had numerous syncopal events in the past. ? Thyroid peroxidase antibodies, thyroglobulin levels elevated in September suggesting Tricia's thyroid. Thyroid-stimulating, thyroid receptor antibodies normal. - Recently admitted to our facility and was discharged in stable condition with propranolol 20 mg 3 times daily, for the cortisone 0.1 mg, salt tab. ? Has since followed up with and [facility] endocrinology, have started and uptitrated methimazole to 10 mg twice daily refractory symptomatic thyroiditis. ? Patient states over the past week she has become more symptomatic, presumably because her kids have been sick with a viral illness. ? Respiratory panel positive for human metapneumovirus. ? Increased propranolol from 20 mg to 30 mg 3 times daily with improvement of symptoms. ? Continue fludrocortisone 0.1 mg daily. ? Continue sodium chloride tablet 1000 mg twice daily. Sodium currently 136, goal is to be between 140 and 145 in the setting of POTS. ? Follow-up with PCP, and endocrinology within 1 week. #Iron deficiency anemia #Low vitamin D ? Ferritin 5.15. Vitamin D level 18.7. Hemoglobin 10.1. B12, folate levels normal. ? Continue home vitamin D3. Patient previously has not tolerated oral ferrous sulfate and has received IV transfusions. Total time spent on discharge: 32 minutes on chart review, counseling, documentation, and direct care with patient. Exam Data for Last 24 hours Vital signs and Labs for Last 24 Hours: Temp Pulse Resp BP Pulse Ox O2 Del Method 98.2 F 82 18 125/69 96 Room Air 12/01/24 08:00 12/01/24 09:14 12/01/24 08:00 12/01/24 09:14 12/01/24 08:00 12/01/24 11:00 Laboratory Results - last 24 hr 11/30/24 06:34: Free T3 5.2 H 12/01/24 06:01: WBC 4.6 L, RBC 3.54 L, Hgb 9.8 L, Hct 29.7 L, MCV 83.9, MCH 27.7, MCHC 33.0, RDW 12.2, Plt Count 146, MPV 11.2 H, Neut % (Auto) 62.9, Lymph % (Auto) 27.0, [place] % (Auto) 9.0, Eos % (Auto) 0.9, Baso % (Auto) 0.2, Neut # (Auto) 2.9, Lymph # (Auto) 1.2, [place] # (Auto) 0.4, Eos # (Auto) 0.0, Baso # (Auto) 0.0, Sodium 136, Potassium 3.4 L, Chloride 113 H, Carbon Dioxide 21 L, Anion Gap 5.4, BUN 3 L D, Creatinine 0.50 L, Estimated Creat Clear 177, Estimated GFR 149, Est GFR ( Amer) 180, Glucose 79, Calcium 8.6, TSH < 0.02 L, Free T4 2.37 H I & O for Last 24 hours: Intake & Output 11/28/24 11/29/24 11/30/24 12/01/24 23:59 23:59 23:59 23:59 Intake Total 1060 / 1060 2799 / 2799 Output Total 0 / 0 100 / 100 0 / 0 Balance 0 / 1000 960 / 960 2799 / 2799 Weight 64.41 kg 63.73 kg 65.828 kg Constitutional Constitutional: no acute distress *Routine HEENT Exam Head: Present normocephalic Eye: Present EOMI and PERRL ENT: Present mucous membranes moist *Routine Neck Exam Neck: Present supple; Absent lymphadenopathy *Routine Respiratory Exam Respiratory: Present CTA bilaterally *Routine Cardiovascular Exam Cardiovascular: Present RRR *Routine Abdominal Exam Abdominal: Present soft and normoactive bowel sounds; Absent tenderness *Routine Extremities Exam Extremities: Absent cyanosis, clubbing or edema *Routine Skin Exam Skin: Present warm; Absent rash *Routine Neurological Exam Neurological: Present alert and oriented X3 Results Data Completed and Pending Labs on day of discharge: Labs from last 24 hours 12/01/24 11/30/24 06:01 06:34 WBC 4.6 L RBC 3.54 L Hgb 9.8 L Hct 29.7 L MCV 83.9 MCH 27.7 MCHC 33.0 RDW 12.2 Plt Count 146 MPV 11.2 H Neut % (Auto) 62.9 Lymph % (Auto) 27.0 Columbia % (Auto) 9.0 Eos % (Auto) 0.9 Baso % (Auto) 0.2 Neut # (Auto) 2.9 Lymph # (Auto) 1.2 [place] # (Auto) 0.4 Eos # (Auto) 0.0 Baso # (Auto) 0.0 Sodium 136 Potassium 3.4 L Chloride 113 H Carbon Dioxide 21 L Anion Gap 5.4 BUN 3 L D Creatinine 0.50 L Estimated Creat Clear 177 Estimated GFR 149 Est GFR ( Amer) 180 Glucose 79 Calcium 8.6 TSH < 0.02 L Free T4 2.37 H Free T3 5.2 H DS: Diagnosis Discharge Diagnosis (1) thyroiditis: Status: Acute Code(s): O90.5 - thyroiditis Meds Home Medications and Allergies Home Medications ?Medication ?Instructions ?Recorded ?Confirmed ?Type famotidine 20 mg tablet 20 mg PO DAILY 08/31/24 11/29/24 History buspirone 5 mg tablet 5 mg PO HS 10/17/24 11/30/24 History albuterol sulfate 90 mcg/actuation 1 puff inhalation Q4HP PRN 11/05/24 11/29/24 History aerosol inhaler (Ventolin HFA) Shortness Of Breath fludrocortisone 0.1 mg tablet 0.1 mg PO DAILY 30 days #30 tabs 11/07/24 11/29/24 Rx methimazole 10 mg tablet 10 mg PO BID #60 tabs 11/22/24 11/30/24 Rx cholecalciferol (vitamin D3) 25 4,000 unit PO DAILY 11/30/24 11/30/24 History mcg (1,000 unit) tablet propranolol 20 mg tablet 30 mg (1.5 x 20 mg) PO TID 30 days 12/01/24 11/29/24 Rx #90 tabs sodium chloride 1,000 mg soluble 1,000 mg PO BID 30 days #60 tabs 12/01/24 Rx tablet New Prescriptions to Start Prescriptions: sodium chloride Earle Gamble Allergies Allergy/AdvReac Type Severity Reaction Status Date / Time cinnamon Allergy Severe Swelling Verified 11/28/24 14:44 of Lip/Tongue/Throat amoxicillin (From Augmentin) Allergy Verified 11/28/24 14:44 clavulanic acid (From Allergy Verified 11/28/24 14:44 Augmentin) Penicillins Allergy Verified 11/28/24 14:44 Discharge Plan Disposition Patient Disposition: Home, Self-Care Condition: Fair Follow up Plan Follow up with: Padmini Wyatt APRN [Primary Care Provider] - 12/02/24 9:30 am Prescriptions/Medication Reconciliation: New sodium chloride 1,000 mg Tablet,Soluble 1,000 mg PO BID 30 Days Qty: 60 0RF Continued famotidine 20 mg tablet 20 mg PO DAILY buspirone 5 mg tablet 5 mg PO HS methimazole 10 mg tablet 10 mg PO BID Qty: 60 2RF albuterol sulfate [Ventolin HFA] 90 mcg/actuation HFA aerosol inhaler 1 puff INHALATION Q4HP PRN (Reason: Shortness Of Breath) fludrocortisone 0.1 mg Tablet 0.1 mg PO DAILY 30 Days Qty: 30 0RF cholecalciferol (vitamin D3) 25 mcg (1,000 unit) tablet 4,000 unit PO DAILY Patient Comments: TAKE FOUR TABLETS BY MOUTH EVERY DAY Changed propranolol 20 mg Tablet 30 mg PO TID 30 Days Qty: 90 0RF Problem Reconciliation Problems Reviewed?: Yes Patient Discharge Instructions Patient Instructions: DI for Syncope in Adults (Fainting) Print Language: Guyanese Providers Primary Care Provider: Padmini Wyatt Admit Provider: Earle Gamble Attending Provider: Earle Gamble
[2024-12-01 15:35] LABS: Human Metapneumovirus Detected (NotDetected)
[2024-12-02 08:13] LABS: Prolactin 29.4 ng/mL (4.8-33.4)
--- NOTE | 2024-12-02 10:14 | SW/DCPLANNER ---
Spoke with patient on the phone. Patient stated that she is doing alright, still sick. Patient stated that she just left her follow up appointment. Patient stated that she was able to get her medicine picked up from clinic pharmacy. Patient stated that she has no concerns or questions at this time. Taylor Dawson
== END 2024-12-01 14:00 | disposition home or self-care (01) ==
LOC: ER 19:01 → 2ND 21:36
PROVIDERS: Nurse Practitioner Family; Admitting Provider Student in an Organized Health Care Education/Training Program; Emergency Provider Emergency Medicine; PCP Nurse Practitioner Family; Visit Provider Student in an Organized Health Care Education/Training Program
DX: O90.5 Postpartum thyroiditis (principal); G90.A Postural orthostatic tachycardia syndrome [POTS]; E86.0 Dehydration; K52.9 Noninfective gastroenteritis and colitis, unspecified; R55 Syncope and collapse; E55.9 Vitamin D deficiency, unspecified; D50.9 Iron deficiency anemia, unspecified; Z88.1 Allergy status to other antibiotic agents; Z91.018 Allergy to other foods; Z79.51 Long term (current) use of inhaled steroids; Z88.0 Allergy status to penicillin; Z79.899 Other long term (current) drug therapy; Z74.1 Need for assistance with personal care
CPT/HCPCS: 36415; 80048; 80053; 83970; 84146; 84436; 84439; 84443; 84481; 84702; 85025; 87631; 87633; 97163; 99285; G0378; J1650; J2405; J7030; J7120

== ENCOUNTER 2024-12-02 09:45 | Outpatient (CLI) | payer MEDICAID, SELFPAY ==
[2024-12-02 14:45] LABS: Basophils % 0.5 % (0.1-2.0); Eosinophils % 0.7 % (0.1-12.0); Hematocrit 36.6 % (37.0-47.0); Hemoglobin 11.8 g/dL (12.2-16.2); Immature Granulocytes # 0 10^3uL; Immature Granulocytes % 0 %; Lymphocytes % 23.3 % (10-50); Mean Corpuscular HGB Conc 32.2 g/dL (31.8-35.4); Mean Corpuscular Hemoglobin 27.6 pg (27.0-31.2); Mean Corpuscular Volume 85.5 fl (81-99); Mean Platelet Volume 11.8 fl (7.4-10.4); Monocytes # 0.5 K/mm3 (0.1-1.0); Monocytes % 10.9 % (1.7-9.3); Neutrophils # 2.9 K/mm3 (1.8-7.8); Neutrophils % 64.6 % (37.0-80.0); Nucleated Red Blood Cells # 0 10^3/uL; Nucleated Red Blood Cells % 0 %; Platelet Count 192 K/mm3 (142-424); Red Blood Count 4.28 M/mm3 (4.20-5.40); Red Cell Distribution Width 12.4 % (11.5-17.5); Red Cell Distribution Width-SD 38.5 fL; White Blood Count 4.4 K/mm3 (4.8-10.8)
[2024-12-02 15:22] LABS: Albumin Level 4.5 g/dl (3.5-5.0); Chloride 108 mmol/L (98-107); Potassium 3.9 mmoL/L (3.5-5.1); Sodium 138 mmol/L (136-145)
[2024-12-02 15:24] LABS: Alanine Aminotransferase 14 U/L (12-78); Aspartate Amino Transferase 18 U/L (14-36); Blood Urea Nitrogen 9 mg/dl (7-17); Estimated Glomerular Filt Rate 121 ml/min (>60); GFR (African American) 146 ML/MIN (>60)
[2024-12-02 15:25] LABS: Albumin/Globulin Ratio 1.7 (1.1-1.8); Alkaline Phosphatase 53 U/L (38-126); Anion Gap 11.9 mEq/L (5-15); Bilirubin,Total 1.9 mg/dl (0.2-1.3); Calcium 9.3 mg/dl (8.4-10.2); Carbon Dioxide 22 mmol/L (22.0-30.0); Globulin 2.6 g/dL (1.3-3.2); Glucose 72 mg/dl (74-100); Total Protein,Serum 7.1 g/dl (6.3-8.2)
[2024-12-02 15:35] LABS: Free T4 (Free Thyroxine) 2.68 ng/dl (0.78-2.19)
[2024-12-02 15:43] LABS: T4 (Thyroxine) 16.6 ug/dl (5.53-11.0)
[2024-12-02 15:57] LABS: Thyroid Stimulating Hormone < 0.02 uIU/mL (0.465-4.68)
[2024-12-02 16:01] LABS: Ferritin 12.6 ng/ml (6.24-137)
[2024-12-03 07:16] LABS: Triiodothyronine (T3) Free 4.5 pg/mL (2.0-4.4)
== END 2024-12-02 23:59 | disposition home or self-care (01) ==
LOC: LAB.DROPOF 12-05 10:41
PROVIDERS: PCP Nurse Practitioner Family; Visit Provider Nurse Practitioner Family
DX: E05.90 Thyrotoxicosis, unspecified without thyrotoxic crisis or storm (principal); D64.9 Anemia, unspecified; R10.9 Unspecified abdominal pain; O90.5 Postpartum thyroiditis
CPT/HCPCS: 80053; 82728; 84436; 84439; 84443; 84481; 85025

== ENCOUNTER 2024-12-06 14:58 | Outpatient (CLI) | payer MEDICAID, SELFPAY ==
--- NOTE | 2024-12-06 15:30 | US_ITS ---
FINAL REPORT CLINICAL HISTORY: left flank plain COMPARISON: None FINDINGS: RENAL ULTRASOUND Ultrasound images of the kidneys were obtained. The right kidney measures 9.9 cm in length. It is normal echogenicity. There is no hydronephrosis. The left kidney measures 10.9 cm in length. It is normal echogenicity. There is no hydronephrosis. IMPRESSION: Normal renal ultrasound. Reviewed, Interpreted and Dictated by Tristan South MD Transcribed by Deb Montana Authenticated and [facility]
== END 2024-12-06 23:59 | disposition home or self-care (01) ==
LOC: RAD 14:59
PROVIDERS: PCP Nurse Practitioner Family; Visit Provider Nurse Practitioner Family
DX: R10.9 Unspecified abdominal pain (principal)
CPT/HCPCS: 76770

== ENCOUNTER 2024-12-08 08:08 | Outpatient (CLI) | payer MEDICAID, SELFPAY ==
--- NOTE | 2024-12-08 08:13 | XR_ITS ---
FINAL REPORT CLINICAL HISTORY: DIARRHEA COMPARISON: None FINDINGS: SINGLE VIEW ABDOMEN A single view of the abdomen was obtained. There is a nonobstructive bowel gas pattern. There are no abnormally dilated loops of small bowel. No abnormal calcifications are identified. Surgical clips are noted in the right upper quadrant. IMPRESSION: Nonobstructive bowel gas pattern. Reviewed, Interpreted and Dictated by Tristan South MD Transcribed by Ana Luisa Murphy Authenticated and [facility]
== END 2024-12-08 23:59 | disposition home or self-care (01) ==
LOC: RAD 08:09
PROVIDERS: PCP Nurse Practitioner Family; Visit Provider Hospitalist
DX: R19.7 Diarrhea, unspecified (principal); R93.3 Abnormal findings on diagnostic imaging of other parts of digestive tract
CPT/HCPCS: 74018

== ENCOUNTER 2024-12-21 10:50 | Outpatient (CLI) | payer MEDICAID, SELFPAY ==
[2024-12-21 11:55] LABS: Free T4 (Free Thyroxine) 1.54 ng/dl (0.78-2.19); T4 (Thyroxine) 10.6 ug/dl (5.53-11.0)
[2024-12-21 12:09] LABS: Thyroid Stimulating Hormone < 0.02 uIU/mL (0.465-4.68)
== END 2024-12-21 23:59 | disposition home or self-care (01) ==
LOC: LAB 10:51
PROVIDERS: PCP Nurse Practitioner Family; Visit Provider Nurse Practitioner Family
DX: E05.90 Thyrotoxicosis, unspecified without thyrotoxic crisis or storm (principal)
CPT/HCPCS: 36415; 84436; 84439; 84443; 84481

== ENCOUNTER 2025-01-04 08:59 | Outpatient (CLI) | payer MEDICAID, SELFPAY ==
--- OUTSIDE RECORDS SUMMARY | 2024-11-11 08:40 | XMS_ITS | Encounter Summary ---
Author Organization [facility] Address [address] [place] [address] Care Team Providers Care Gold Leaf Roller Name Role Phone Molly Louis MD Primary Care Provider [phone] Angela Oleary RN Unavailable Unavailable Reason for Referral * Consultation (Routine) - Authorized Specialty Diagnoses / Procedures Referred By Mili joe Referred To Contact Diagnoses Thyrotoxicosis with Angela thyroiditis Roland Wooten MD [address] [address] Phone: tel: fax: Referral ID Status Reason Start Date Expiration Date V isits Requested Visits Authorized [id number] Authorized 11/11/2024 05/13/2026 1 1 Reason for Visit * Reason Comments Thyroid Problem Encounter Details Date Type Department Care Team (Latest Contact Info) Description 11/11/2024 8:40 AM EDT [facility] [address] [place] [address] (1), Roland Wooten Fellow Abundio Kyle MBBS [address] [place] [address] Thyrotoxicosis with Angela thyroiditis (Primary Dx); Hyperthyroidism Social History Tobacco Use Types Packs/Day Years Used Date Smoking Tobacco: Former Cigarettes Q uit: 2021 Smokeless Tobacco: Former Tobacco Cessation:Counseling Given: Not Answered Comments:History of vaping after cigarettes. Stopped when she [...] 02/22/2024 How often do you attend chur or sabianism services? Never 02/22/2024 Do you belong to any clubs o r organizations such as zoroastrian groups, unions, fraternal or athletic groups, or school groups? No 02/22/2024 How often do you attend meet ings of the clubs or organizations you belong to? Never 02/22/2024 Are you , , di vorced, , never , or living with a partner? 02/22/2024 AUDIT-C Answer Date Recorded Q1: How often do you have a drink containing alcohol? Never 02/22/2024 Q2: How many drinks containi ng alcohol do you have on a typical day when you are drinking? Patient does not drink Q3: How often do you have si x or more drinks on one occasion? Never 02/22/2024 Overall Financial Resource Strain (CARDIA) Answe r Date Recorded How hard is it for you to pa y for the very basics like food, housing, medical care, and heating? Not very hard 02/22/2024 PHQ-2 Answer Date Recorded Patient Health Questionnaire-2 Score 0 11/16/2024 [facility] - Occupational Stress Questionnaire Answer Date [...] place to sleep or slept in a longterm (including now)? No 02/09/2024 [place] Depression Scale Answer Date Recorded [place] Depression Scale Total 6 08/08/2024 The thought of harming myself has occurred to me . 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 0 07/16/2024 CAGE Questionnaire Score 0 024 Utilities Answer Date Recorded In the past 12 months has e [employer], gas, oil, or water [employer] threatened to shut off services in your home? No 02/09/2024 Comments No Sex and Gender Information Value Date Recorded Sex Assigned at Not on file Legal Sex Female 7:36 PM EDT Gender Identity Not on file Sexual Orientation Not on file documented as of this encounter Last Filed Vital Signs Vital Sign Reading Time Taken Comments Blood Pressure 123/78 11/11/2024 8:25 AM EDT Pulse 81 11/11/2024 8:25 AM EDT Temperature - - Respiratory Rate - - Oxygen Saturation - - Inhaled Oxygen Concentration - - Weight 64.4 kg (142 lb) 11/11/2024 8:25 AM EDT Height 165.1 cm (5' 5 ) 11/11/2024 8:25 AM EDT Body Mass Index 23.63 11/11/2024 8:25 AM EDT documented in this encounter Miscellaneous Notes * Progress Notes - Abundio Kyle MBBS - 11/11/2024 8:40 AM EDT Subjective: Chief Complaint: hyperthyroidism HPI Francy Delarosa 24 y.o. presents for Consultation for hyperthyroidism. [facility] Reyez Consult ordered by Molly Louis MD Patient stated that she was initially identified with abnormal thyroid labs at 5 weeks of . She was started on propanol 20 mg/ day then, which helped in symptom control. At post- visit, a couple weeks later, her palpitations worsened. Her labs early september consistent with normal thyroid function, however by the end of september she had labs consistent with subclinical hyperthyroidism. She mentioned that she was hospitalized last week and was diagnosed with thyroid storm , complicated with SVT during the admission. Keisha at was called and told that the patient had severe hyperthyroidism and we recommended that she be started on MMI and beta blockers and given an Endo appt that same week. She was started on 30mg MMI daily for 2 days during the admission andalso received IV steroids. However, after retrieving relevant information, the patient's TFTs were minimally abnormal, and not at the level one would suspect with thyroid storm. Current regimen- Propranolol 20mg/ 3 times a day. Papillations controlled with above regimen Current symptoms include- diarrhea, hot flashes, diarrhea, anxious As noted, pt was also diagnosed with POTS during , and is severely symptomatic; she presents today in a wheelchair because of severe drop in BP and tachycardia and associated symptoms with standing. LMP- October 29, regular- Restarted She was also started on fludrocortisone for POTS Labs October 17 -TSH- 0.07, Ft4- 1.56 November 05 - TSH <0.02 , Ft4 - 3.01 November 08 - TSH <0.02, Ft4 - 2.66 TSI - negative TPO- positive FH: Mother- hypothyroidism, auto-immune and blood clot disorder Father- Stroke Brother- chron's Allergies Allergies[1] Current Medications Current Outpatient Medications Medication Instructions bisacodyl (Bisacodyl EC) 5 MG EC tablet Take all 4 tablets at 4 PM on day before colonoscopy Blood Glucose Monitoring Suppl ([place] Televisionuch Verio Reflect) w/Device kit busPIRone (BUSPAR) 5 mg, Oral, Nightly, Takes at 8PM cholecalciferol (Vitamin D-3) 50 MCG (1999 UT) capsule famotidine (PEPCID) 20 mg, Oral, 2 times daily ibuprofen 600 mg, Oral, Every 6 hours PRN ivabradine HCl (CORLANOR) 2.5 mg, Oral, 2 times daily Lancets (CylanceTouch Delica Plus [id number]) misc ondansetron (ZOFRAN) 4 mg, Oral, Every 8 hours PRN ondansetron ODT (ZOFRAN-ODT) 4 mg, Oral, Every 8 hours PRN OneTouch Verio test strip 1 each, As needed polyethylene glycol (GoLYTELY) 236 g solution SEE PHARMACY NOTES FOR PATIENT LABEL INSTRUCTIONS- for Colonoscopy prep protocol potassium & sodium phosphates (Phos-NaK) 280-160-250 MG packet 1 packet, Oral, Daily Vit-Fe Fumarate-FA ( Vitamins) 28-0.8 MG tablet 1 tablet, Oral, Daily propranolol (INDERAL) 10 mg, Oral, Daily propranolol (INDERAL) 10 mg, Oral, 2 times daily PRN, Takes at 9am and 4:30pm senna-docusate (Codi-Colace) 8.6-50 MG tablet 1 tablet, Oral, Daily sodium chloride (Ventura Nasal [place]) 0.65 % nasal spray 1 spray, Each Nostril, As needed Tylenol 650 mg, Oral, Every 6 hours PRN Ventolin HFA 108 (90 Base) MCG/ACT inhaler Immunizations: Immunization History Administered Date(s) Administered DTaP, Unspecified 04/26/2002 HPV, Quadrivalent 05/29/2011 Hep A, ped/adol, 2 dose 02/20/2010, 11/21/2010 IPV 04/26/2002 Influenza, injectable, quadrivalent, preservative free 04/29/2023 Jasmine COVID-19 Vaccine (Blue Cap) 18+ 02/21/2021 MMR 04/26/2002 Tdap 02/20/2010 Varicella 07/06/2001 Medical/Surgical History Medical History[2] Surgical History[3] Family History Family History[4] Social history Social History[5] ROS Review of Systems Constitutional: Positive for fatigue. Negative for unexpected weight change. Wheelchair bound HENT: Negative for trouble swallowing. Cardiovascular: Positive for palpitations. Gastrointestinal: Positive for diarrhea and nausea. Endocrine: Positive for heat intolerance. Genitourinary: Negative for menstrual problem. Skin: Negative. Neurological: Positive for light-headedness. Psychiatric/Behavioral: The patient is nervous/anxious. Objective: Vitals Visit Vitals BP 123/78 (BP Location: Right arm, Patient Position: Sitting, BP Cuff Size: Small adult) Pulse 81 Ht 1.651 m (5' 5 ) Wt 64.4 kg (142 lb) BMI 23.63 kg/m?? Physical Exam Physical Exam Vitals reviewed. Constitutional: Appearance: Normal appearance. Comments: Currently on wheenchair Eyes: Extraocular Movements: Extraocular movements intact. Neck: Comments: No enlarged thyroid on exam Cardiovascular: Rate and Rhythm: Normal rate. Heart sounds: Normal heart sounds. Pulmonary: Effort: Pulmonary effort is normal. Musculoskeletal: Right lower leg: No edema. Left lower leg: No edema. Neurological: Mental Status: She is oriented to person, place, and time. Mental status is at baseline. Psychiatric: Mood and Affect: Mood normal. Behavior: Behavior normal. 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 Typically, this resolves on its own, sometimes with a period of transient hypothyroidism (often asymptomatic). Post Gravesis also possible, but TSI is negative, thyroid not very enlarged. - Recent labs from October--> TSH - <0.02, Ft4 - 2.66 - Current regimen- Propranolol 20mg TID - She received 2 days of MMI 30mg when she was hospitalized last week for thyroid storm. Plan - Check TSH, FT4 and total T3 levels today - Will plan treatment based on above labs. - Post thyroiditis is typically treated symptomatically until it resolves. POTS - Explains the majority of patient's symptoms, although the hyperthyroidism may contribute to the tachycardia and changes in BP. - pt being followed by Cardiology PRAKASH Armstrong Endocrinology Fellow PGY-5 [facility] ENDOCRINOLOGY [address] [place] [address], [address] [facility] [address] Called patient: She continued to complain of palpitations. Discussed to start MMI 10mg daily and Prednisone 40mg following taper as prescribed. Off note, on chart she was found to have allergic reaction with betamethasone. Verified with patient. She received steroids recently when she was hospitalized. She agreed to try prednisone and if shehas symptoms recommended her stop the medication, call office and suggested to use OTC anti-histamines. Repeat TSH and FT4 in 4 weeks Component Latest Ref Rng 11/11/2024 T3, Total 87 - 187 ng/dL 176 Free T4 0.8 - 1.7 ng/dL 2.3 (H) TSH 0.40 - 4.20 uIU/mL <0.01 (L) [1] Allergies Allergen Reactions Amoxicillin-Pot Clavulanate Other - please document in the comment field, Rash and Swelling Cinnamon Other - please document in the comment field Penicillin G Swelling Betamethasone Dipropionate (Augmented) [Betamethasone] Other - please document in the comment field Patient states she has not had a reaction to this. [2] Past Medical History: Diagnosis Date Anemia Anxiety GERD (gastroesophageal reflux disease) Gilbert syndrome 2019 Peptic ulceration POTS (postural orthostatic tachycardia syndrome) 01/2024 Urinary tract infection [3] Past Surgical History: Procedure Laterality Date CHOLECYSTECTOMY 07/2023 DILATION AND CURETTAGE OF UTERUS HAND SURGERY 07/2022 TONSILLECTOMY 2001 [4] Family History Problem Relation Name Age of Onset Autoimmune disease Mother Avril fagan Heart failure Father Hypertension Father Autoimmune disease Brother Tristan fagan Cancer Maternal Grandmother Melania sheridan Asthma Child Anesthesia problems Neg Hx Malig Hyperthermia Neg Hx [5] Social History Tobacco Use Smoking status: Former Current packs/day: 0.00 Types: Cigarettes Quit date: 2021 Years since quittin.2 Smokeless tobacco: Former Tobacco comments: History of vaping after cigarettes. Stopped when she found out she was Vaping Use Vaping status: Never Used Substance Use Topics Alcohol use: Never Drug use: Never Cosigned by Roland Wooten MD at 11/16/2024 10:39 AM EDT Associated attestation - Roland Wooten MD - 11/16/2024 10:39 AM EDT I saw and evaluated the patient with the resident/fellow. I discussed the case with the resident/fellow and agree with the findings and plan as documented. documented in this encounter Plan of Treatment Upcoming Encounters Date Type Department Care Team (Late st Contact Info) Description 01/17/2025 7:00 AM EDT Appointment [facility] [address] [place] [address] Cody Barnett MD [address] [place] [address] 02/10/2025 10:00 AM EDT Office Visit [facility] Endocrinology [address] [place] [address] Rachel Khan PA [address] [place] [phone] 02/16/2025 1:20 PM EDT Office Visit [facility] [place] [address] [place] [address] Courtney Torres MD [address] [place] [address] 03/15/2025 3:30 PM EDT Consult [facility] [address] [place] [address] Kendy Sanchez, TRISTAN [address] [place] [address] 04/17/2025 2:00 PM EDT Office Visit [facility] Medicine Specialties [address], [address] [place] [address] Silverio Tam PA [address] [place] [address] Scheduled Referrals Name Type Priority Associated Diagnoses Orde r Schedule Follow Up [facility] Outpatient Referral Routine Thyrotoxicosis with Angela thyroiditis Expected: 02/10/2025, Expires: 12/11/2025 documented as of this encounter Goals Goal Patient Goal Type Associated Problems Recent Progress Patient-Stated? Author Delayed Delivery Care Plan CPM S22 PP LABOR (OBSTETRICS) No Open Scheduling, Background documented as of this encounter Results * T3 (11/11/2024 10:20 AM EDT) T3, Serum 176 87 - 187 ng/dL 11/11/2024 12:49 PM EDT [facility] Blood Venous blood specimen / Unknown Venipuncture / Unknown 11/11/2024 10:20 AM EDT 11/11/2024 10:20 AM EDT us Roland Wooten MD LAB BLOOD ORDERABLES Final Resu lt Performing Organization Address [facility] [place] [address] * (ABNORMAL) T4, free (11/11/2024 10:20 AM EDT) Free T4, Plasma 2.3(H) 0.8 - 1.7 ng/dL 11/11/2024 12:49 PM EDT [facility] Blood Venous blood specimen / Unknown Venipuncture / Unknown 11/11/2024 10:20 AM EDT 11/11/2024 10:20 AM EDT Narrative [facility] - 11/11/2024 12:49 PM EDT Free T4 Trimester Specific Ranges 1st Trimester 0.9 - 1.50 ng/dL 2nd Trimester 0.7 - 1.40 ng/dL 3rd Trimester 0.7 - 1.24 ng/dL us Roland Wooten MD LAB BLOOD ORDERABLES Final Resu lt Performing Organization Address [facility] [place] [address] * (ABNORMAL) TSH (11/11/2024 10:20 AM EDT) Thyroid Stimulating Hormone, Plasma <0.01(L) 0.40 - 4.20 uIU/mL 11/11/2024 12:49 PM EDT [facility] Blood Venous blood specimen / Unknown Venipuncture / Unknown 11/11/2024 10:20 AM EDT 11/11/2024 10:20 AM EDT Narrative [facility] - 11/11/2024 12:49 PM EDT Trimester Specific Ranges TSH ( IU/mL) 1st Trimester 0.1 - 3.0 2nd Trimester 0.19 - 4.06 3rd Trimester 0.3 - 3.7 us Roland Wooten MD LAB BLOOD ORDERABLES Final Resu lt [facility] [address] [place] [address] documented in this encounter Visit Diagnoses Diagnosis Thyrotoxicosis with Angela thyroiditis- Primary Thyrotoxicosis of other specified origin without mention of thyrotoxic crisis or storm Hyperthyroidism Thyrotoxicosis without mention of goiter or other cause, without mention of thyrotoxic crisis or storm documented in this encounter Additional Health Concerns Active Problems Noted Date Diagnosed Date CPM S22 PP LABOR (OBSTETRICS) 02/24/2024 Assessment Noted Time PHQ-9 Depression Total Score: 0 08/17/19 2:04 PM EST A fall risk assessment has been complete d for the patient 08/17/2024 2:04 PM EST A Body Mass Index follow-up plan has been documented for the patient 11/16/2024 10:39 AM EDT documented as of this encounter Care Teams Gold Leaf Roller Relationship Specialty Start Date End Date Molly Louis MD [address] [place] [id number] PCP - General Family Medicine 02/09/24 11/15/24 Angela Oleary, RN [facility] Registered Nurse Cardiology 02/17/24 documented as of this encounter
--- OUTSIDE RECORDS SUMMARY | 2024-11-16 15:15 | XMS_ITS | Encounter Summary ---
Author Organization Healthcare Address [address] [place] [id number] Care Team Providers Care Appian Developer Name Role Phone Angela Oleary RN Unavailable Unavailable Rey Wyatt MD Primary Care Provider [phone] Encounter Details Date Type Department Care Team ([facility] st Contact Info) Description 11/16/2024 3:15 PM EDT Office Visit [facility] [place] [address] [facility], [address] [place] [address] Ashanti Camarena MD [address] [place] [phone] Pott's disease (Primary Dx) Social History Tobacco Use Types Packs/Day Years [...] How often do you attend chur or episcopal services? Never 02/22/2024 Do you belong to any clubs o r organizations such as yazdanism groups, unions, fraternal or athletic groups, or [...] Recorded Patient Health Questionnaire-2 Score 0 11/16/2024 [facility] Occup[facility] ional [facility] - Occupational Stress Questionnaire Answer Date Recorded [...] place to sleep or slept in a residential (including now)? 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 Question Answer Date of Assessment Author Little interest or pleasure in doing things Not at all 11/16/2024 3:00 PM EDT Angella Castano Feeling down, depressed, or hopeless Not at all 10/26 3:00 PM EDT Angella Castano Patient Health Questionnaire-2 Score 0 10/26 3:00 PM EDT Angella Castano * Question Answer Date of Assessment Author Trouble falling or staying a sleep, or sleeping too much Not at all 11/16/2024 3:00 PM EDT Angella Castano Feeling tired or having little energy Not at all 3:00 PM EDT Angella Castano Poor appetite or overeating Not at all 11/16/2024 3: 00 PM EDT Angella Castano Feeling bad about yourself - or that you are a failure or have let yourself or your family down Not at all 11/16/2024 3:00 PM EDT Gi Castano Trouble concentrating on thi ngs, such as reading the newspaper or watching television Not at all 11/16/2024 3:00 PM EDT Angella Castano Moving or speaking so slowly that other people could have noticed? Or the opposite - being so fidgety or restless that you have been moving around a lot more than usual. Not at all 11/16/2024 3:00 PM EDT Angella Castano Thoughts that you would be b gómez off or hurting yourself in some way Not at all 11/16/2024 3:00 PM EDT Angella Castano Patient Health Questionnaire-9 Score 0 10/26 3:00 PM EDT Angella Castano * If you checked off any problems on this questionnaire so far, Question Answer Date of Assessment Author How difficult have these problems made it for you to do your work, take care of things at home, or get along with other people? Not difficult at all 11/16/2024 3:00 PM EDT Angella Castano documented as of this encounter Miscellaneous Notes * Addendum Note - Rocío Joiner MD - 11/16/2024 3:15 PM EDTAddended by: ROCÍO JOINER on: 11/20/2024 07:52 AM Modules accepted: Level of Service * Progress Notes - Ashanti Camarena MD - 11/16/2024 3:15 PM EDT Images from the original note were not included. Cardiology Clinic Note PCP: Molly Louis MD History of Present Illness Francy Delarosa is a 24 y.o. female who developed severe POTS during her . She presents today for routine follow-up for inappropriate sinus tachycardia and POTS. Ms. Delarosa delivered a healthy baby girl at 37w0d via on 07/16/2024. Since last visit patient was admitted to OSH for thyroidstorm and patient is now following with endocrinology and is being treated with methimazole. Reviewed OSH records with ECG showing sinus tachycardia during admission in setting of thyroid storm. Patient was started on fludrocortisone and 20mg propranolol TID. She reports this regimen has helped the most but she continues to have varying BP with position changes and still needs a wheelchair forany long distances. The following portions of the chart were reviewed this encounter and updated as appropriate: PMH, medications Review of Systems 14 point review of systems performed, pertinent positives documented in the HPI, and remaining reviewed systems are negative. Objective Visit Vitals BP 104/68 (BP Location: Right arm, Patient Position: Sitting, BP Cuff Size: Adult) Pulse 72 Ht 1.651 m (5' 5 ) Wt 64.3 kg (141 lb 12.1 oz) SpO2 97% BMI 23.59 kg/m?? OB Status Having periods Smoking Status Former BSA 1.72 m?? Physical Exam Vitals reviewed. Constitutional: General: She is not in acute distress. Appearance: She is not ill-appearing. Comments: Sitting up in wheelchair HENT: Head: Normocephalic and atraumatic. Eyes: General: No scleral icterus. Conjunctiva/sclera: Conjunctivae normal. Cardiovascular: Rate and Rhythm: Normal rate and regular rhythm. Heart sounds: No murmur heard. Pulmonary: Effort: Pulmonary effort is normal. No respiratory distress. Breath sounds: Normal breath sounds. Comments: Abdominal: General: Abdomen is flat. There is no distension. Musculoskeletal: Right lower leg: No edema. Left lower leg: No edema. Skin: General: Skin is warm and dry. Neurological: General: No focal deficit present. Mental Status: She is alert and oriented to person, place, and time. Psychiatric: Mood and Affect: Mood normal. Behavior: Behavior normal. Assessment/Plan Ms. Francy Delarosa is a 24 y.o. female with severe POTS, now post-, who presents for follow-up of POTS symptoms. 1) Severe POTS 2) Recent Thyroid Storm Ms. Delarosa continues to have ongoing debilitating (remains in wheelchair) POTS symptoms post-. Now exacerbated in setting of recent thyroid storm. Patient is now following with endocrinologyand on methimazole. Prior ECHO showed EF normal and no significant valvular disease. Initially had planned for trial of ivabradine and had planned for tilt-table testing, discussed with patient todayand would not recommend trying new medication or having tilt-table test until improved from hyperthyroid standpoint. Currently symptoms are better on fludrocortisone and propranolol 20mg TID comparedto earlier this month when patient was hospitalized. PLAN - Continue supportive measures with good fluid intake, compression stockings, high salt diet, etc; - Continue propranolol 20 mg BID and fludrocortisone. - Continue with management of hyperthyroidism as that has likely exacerbated recent symptoms. - Will defer starting ivabradine in setting of recent thyroid storm, patient is likely to benefit more from propranolol at this time. - Can reconsider tilt-table testing when hyperthyroidism is better controlled. Return to Clinic: 3 months, patient would like to establish with Dr. Torres in [facility] clinic. I spent 35 minutes performing the following components of the encounter (on the day of the encounter): reviewing History, examining the patient, reviewing imaging and/or labs, Independently interpreting echocardiogram, ECG and/or other imaging results, ordering tests or procedures, ordering medications, counseling the patient and family/caregiver, communicating with other health pharmacy care coordinator, care coordination, and entering clinical information in the EHR. Greater than 50% of the time spent on the encounter was face to face providing direct patient care, counseling for the patient/caregiver, and care coordination. Cosigned by Rocío Joiner MD at 11/20/2024 7:52 AM EDT Associated attestation - Rocío Joiner MD - 11/20/2024 7:52 AM EDT I evaluated the patient with the resident/fellow. I discussed the case with the resident/fellow andagree with the findings and plan as documented. documented in this encounter Plan of Treatment Upcoming Encounters Date Type Department Care Team (Late st Contact Info) Description 01/17/2025 7:00 AM EDT Appointment [facility] [address] [place] [phone] Cody Barnett MD [address] [place] [address] 02/10/2025 10:00 AM EDT Office Visit [facility] Endocrinology [address] [place] [address] Rachel Khan PA [address] [place] [address] 02/16/2025 1:20 PM EDT Office Visit [facility] [place] [address], [address] [place] [address] Courtney Torres MD [address] [place] [address] 03/15/2025 3:30 PM EDT Consult [facility] [address], [address]st [place] [address] Kendy Sanchez, TRISTAN [address] [place] [address] 04/17/2025 2:00 PM EDT Office Visit [facility] Medicine Specialties [address], [address] [place] [address] Silverio Tam PA [address] [place] [address] documented as of this encounter Goals Goal Patient Goal Type Associated Problems Recent Progress Patient-Stated? 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, confirmation unspecified documented in this encounter Additional Health Concerns Active Problems Noted Date Diagnosed Date CPM S22 PP LABOR (OBSTETRICS) 02/24/2024 Assessment Noted Time PHQ-9 Depression Total Score: 0 11/17/19 3:00 PM EDT A fall risk assessment has been complete d for the patient 11/16/2024 3:02 PM EDT A Body Mass Index follow-up plan has been documented for the patient 11/16/2024 7:54 PM EDT documented as of this encounter Care Teams Appian Developer Relationship Specialty Start Date End Date Rey Wyatt MD [address] [facility] [address] [place] [address] PCP - General 11/16/24 Angela Oleary, RN [facility] Registered Nurse Cardiology 02/17/24 documented as of this encounter
--- OUTSIDE RECORDS SUMMARY | 2024-11-20 21:18 | XMS_ITS | Encounter Summary ---
Author Organization Healthcare Address [address] [place] [address] Care Team Providers Care Transformation Lead Name Role Phone Angela Oleary RN Unavailable Unavailable Rey Wyatt MD Primary Care Provider [phone] Reason for Visit * Reason Comments Multiple Complaints Encounter Details Date Type Department Care Team ([facility] st Contact Info) Description 11/20/2024 9:18 PM EDT - 11/20/2024 11:32 PM EDT Emergency [facility] Emergency Department [address] [place] [address] Leo Souza MD [address] [place] [address] Palpitations (Primary Dx) Discharge Disposition: [...] How often do you attend chur or buddhist services? Never 02/22/2024 Do you belong to any clubs o r organizations such as islam groups, unions, fraternal or athletic groups, or [...] Recorded Patient Health Questionnaire-2 Score 0 11/16/2024 [facility] [...] in a residential (including now)? No 02/09/2024 Pontiac Depression Scale Answer Date Recorded [place]iac Depression Scale Total 6 08/08/2024 The thought [...] drink first t casi in the morning ([employer]) to steady your nerves or to get [...] for mild pain. 30 capsule 1 07/18/2024 bisacodyl (Bisacodyl EC) 5 MG EC tablet Take all 4 tablets at 4 PM on day before colonoscopy 4 tablet 09/13/2024 Blood Glucose Monitoring Suppl (KongregateTouch Verio Reflect) w/Device kit 04/14/2024 busPIRone (Buspar) [...] mild pain. 30 tablet 1 07/18/2024 Lancets (KongregateTouch Delica Plus [id number]) [facility] 04/14/2024 methIMAzole (Tapazole) 10 MG tablet Take 1 tablet by mouth daily. 60 tablet 11/11/2024 01/11/20 25 ondansetron (Zofran) 4 MG tablet Take 1 tablet (4 mg) by mouth every 8 (eight) hours if needed for nausea or vomiting. 3 tablet 5 07/18/2024 [employer] [place] Verio test strip 1 each by Other route if needed. 04/14/2024 polyethylene glycol (GoLYTELY) 236 g solution SEE PHARMACY NOTES FOR PATIENT LABEL INSTRUCTIONS- for Colonoscopy prep protocol 4000 mL 09/13/2024 potassium & sodium phosphates (Phos-NaK) 280-160-250 MG [...] day. 30 tablet 1 07/18/2024 sodium chloride ([place] Nasal [place]) 0.65 % nasal spray Administer 1 spray into each nostril if needed for congestion. 30 mL 12 04/12/2024 Ventolin HFA 108 (90 Base) MCG/ACT inhaler 10/05/2024 ondansetron ODT (Zofran-ODT) 4 MG disintegrating tablet Take 1 tablet (4 mg) by mouth every 8 (eight) hours if needed for nausea or vomiting. 20 tablet 2 03/16/2024 12/31/19 predniSONE (Deltasone) 10 MG tablet Take 4 [...] 4 months currently. History provided by: Patient web manager used: No Patient History Medical History[1] Surgical [...] baseline. Comments: Awake Psychiatric: Behavior: Behavior normal. 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 * ED Triage Notes - Breitenbach, Marcio A, RN - 11/20/2024 8:36 PM EDT Pt [...] EDT Appointment [facility] End[facility] [address] [place] [address] Cody Barnett MD [address] [place] [address] 02/10/2025 10:00 AM EDT Office Visit [facility] Endocrinology [address] [place] [id number] Rachel Khan PA [address] [facility] [address] [place] [address] 02/16/2025 1:20 PM EDT Office Visit [facility] [place] [address], [address] [place] [address] Courtney Torres MD [address] [place] [address] 03/15/2025 3:30 PM EDT Consult [place] [facility] [address] [place] [address] Kendy Sanchez APRN [address] [place] [address] 04/17/2025 2:00 PM EDT Office Visit [facility] Medicine Specialties [address] [place] [address] Silverio Tam PA [address] [place] [address] Scheduled Orders Name Type Priority [...] LAB HEMATOLOGY METHOD 11/20/2024 9:23 PM EDT [facility] RBC Count 4.26 3.90 - 5.20 10*6/uL LAB HEMATOLOGY METHOD 11/20/2024 9:23 PM EDT [facility] HGB 11.8 11.2 - 15.7 g/dL LAB HEMATOLOGY METHOD 11/20/2024 9:23 PM EDT [facility] HCT 35.8 34.0 - 45.0 % LAB HEMATOLOGY METHOD 11/20/2024 9:23 PM EDT [facility] Platelet Count 197 155 - 369 10*3/uL LAB HEMATOLOGY METHOD 11/20/2024 9:23 PM EDT [facility] MCV 84 79 - 98 fL LAB HEMATOLOGY METHOD 11/20/2024 9:23 PM EDT [facility] MCH 27.7 26.0 - 32.0 pg LAB HEMATOLOGY METHOD 11/20/2024 9:23 PM EDT [facility] MCHC 33.0 30.7 - 35.5 g/dL LAB HEMATOLOGY METHOD 11/20/2024 9:23 PM EDT [facility] RDW 12.5 11.5 - 14.5 % LAB HEMATOLOGY METHOD 11/20/2024 9:23 PM EDT [facility] MPV 11.6 8.8 - 12.5 fL LAB HEMATOLOGY METHOD 11/20/2024 9:23 PM EDT [facility] nRBC 0.0 <=0.0 per 100 WBCs LAB HEMATOLOGY METHOD 11/20/2024 9:23 PM EDT [facility] Blood Venous blood specimen / Unknown Venipuncture / Unknown 11/20/2024 9:17 PM EDT 11/20/2024 9:20 PM EDT Radha Trujillo DO LAB BLOOD ORDERABLES Final Re sult [facility] [address] [place] [address] * (ABNORMAL) Blood gas panel, venous (11/20/2024 9:17 PM EDT) pH, Venous 7.38 7.32 - 7.43 LAB HEMATOLOGY METHOD 11/20/2024 9:21 PM EDT [facility] pCO2, Venous 44 37 - 52 mmHg LAB HEMATOLOGY METHOD 11/20/2024 9:21 PM EDT [facility] pO2, Venous 26 25 - 40 mmHg LAB HEMATOLOGY METHOD 11/20/2024 9:21 PM EDT [facility] SO2, Measured, Venous 44(L) 65 - 80 % LAB HEMATOLOGY METHOD 11/20/2024 9:21 PM EDT [facility] Base Excess, Venous 0.2 -2.0 - 3.0 mmol/L LAB HEMATOLOGY METHOD 11/20/2024 9:21 PM EDT [facility] Bicarbonate, Calculated, Venous 26 22 - 26 mmol/L LAB HEMATOLOGY METHOD 11/20/2024 9:21 PM EDT [facility] Hematocrit, Whole Blood 37.4 34.0 - 45.0 % LAB HEMATOLOGY METHOD 11/20/2024 9:21 PM EDT [facility] Sodium, Whole Blood 141 136 - 145 mmol/L LAB HEMATOLOGY METHOD 11/20/2024 9:21 PM EDT [facility] Potassium, Whole Blood 4.0 3.6 - 4.9 mmol/L LAB HEMATOLOGY METHOD 11/20/2024 9:21 PM EDT [facility] Chloride, Whole Blood 110(H) 97 - 107 mmol/L LAB HEMATOLOGY METHOD 11/20/2024 9:21 PM EDT [facility] Glucose, Whole Blood 98 74 - 99 mg/dL LAB HEMATOLOGY METHOD 11/20/2024 9:21 PM EDT [facility] Lactate, Venous, Whole Blood 1.0 0.5 - 2.2 mmol/L LAB HEMATOLOGY METHOD 11/20/2024 9:21 PM EDT [facility] Ionized Calcium, Whole Blood 4.8 4.6 - 5.1 mg/dL LAB HEMATOLOGY METHOD 11/20/2024 9:21 PM EDT [facility] Blood Venous blood specimen / Unknown Venipuncture / Unknown 11/20/2024 9:17 PM EDT 11/20/2024 9:20 PM EDT us Radha Trujillo DO LAB BLOOD ORDERABLES Final Re sult [facility] [address] [place] [address] * (ABNORMAL) Free T4, Plasma (11/20/2024 9:17 PM EDT) Free T4, Plasma 2.4(H) 0.8 - 1.7 ng/dL 11/20/2024 9:47 PM EDT [facility] Blood Venous blood specimen / Unknown Venipuncture / Unknown 11/20/2024 9:17 PM EDT 11/20/2024 9:20 PM EDT Narrative [facility] - 11/20/2024 9:47 PM EDT Free T4 Trimester Specific Ranges 1st Trimester 0.9 - 1.50 ng/dL 2nd Trimester 0.7 - 1.40 ng/dL 3rd Trimester 0.7 - 1.24 ng/dL [employer] LAB BLOOD ORDERABLES Final Re sult Performing Organization Address [facility]/ZIP Co de Phone Number [facility] [address] [place] [address] * (ABNORMAL) Thyroid Stimulating Hormone, Plasma (11/20/2024 9:17 PM EDT) Thyroid Stimulating Hormone, Plasma <0.01(L) 0.40 - 4.20 uIU/mL 11/20/2024 10:02 PM EDT [facility] Blood Venous blood specimen / Unknown Venipuncture / Unknown 11/20/2024 9:17 PM EDT 11/20/2024 9:20 PM EDT Narrative [facility] - 11/20/2024 10:02 PM EDT Trimester Specific Ranges TSH ( IU/mL) 1st Trimester 0.1 - 3.0 2nd Trimester 0.19 - 4.06 3rd Trimester 0.3 - 3.7 [employer] LAB BLOOD ORDERABLES Final Re sult Performing Organization Address City/[facility]/ZIP Co de Phone Number [facility] [address] [place] [address] * Troponin now and 120 min (11/20/2024 9:17 PM EDT) Troponin T, High Sensitivity, 0 Hour <6 <14 ng/L 11/20/2024 9:47 PM EDT [facility] Blood Venous blood specimen / Unknown Venipuncture / Unknown 11/20/2024 9:17 PM EDT 11/20/2024 9:20 PM EDT us Radha Thayer Edgar DO LAB BLOOD ORDERABLES Final Re sult [facility] [address] [place] [address] * Phosphorus (11/20/2024 9:17 PM EDT) Phosphorus, Plasma 3.5 2.5 - 4.5 mg/dL 11/20/2024 10:02 PM EDT [facility] Blood Venous blood specimen / Unknown Venipuncture / Unknown 11/20/2024 9:17 PM EDT 11/20/2024 9:20 PM EDT us Radha Thayer Edgar DO LAB BLOOD ORDERABLES Final Re sult Performing Organization Address City/[facility]/ZIP Co de Phone Number [facility] [address] [place] [address] * Magnesium (11/20/2024 9:17 PM EDT) Magnesium, Plasma 2.1 1.9 - 2.4 mg/dL 11/20/2024 10:02 PM EDT [facility] Blood Venous blood specimen / Unknown Venipuncture / Unknown 11/20/2024 9:17 PM EDT 11/20/2024 9:20 PM EDT RadhaESTmob DO LAB BLOOD ORDERABLES Final Re sult [facility] [address] [place] [address] * (ABNORMAL) CMP (11/20/2024 9:17 PM EDT) Glucose, Plasma 100(H) 74 - 99 mg/dL 11/20/2024 10:02 PM EDT [facility] BUN, Plasma 12 7 - 21 mg/dL 11/20/2024 10:02 PM EDT [facility] Creatinine, Plasma 0.89 0.60 - 1.10 mg/dL 11/20/2024 10:02 PM EDT [facility] BUN/Creatinine Ratio 13 11/20/2024 10:02 PM EDT [facility] Sodium, Plasma 143 136 - 145 mmol/L 11/20/2024 10:02 PM EDT [facility] Potassium, Plasma 4.2 3.6 - 4.9 mmol/L 11/20/2024 10:02 PM EDT [facility] Chloride, Plasma 106 97 - 107 mmol/L 11/20/2024 10:02 PM EDT [facility] CO2, Plasma 24 22 - 29 mmol/L 11/20/2024 10:02 PM EDT [facility] Anion Gap 13 6 - 16 mmol/L 11/20/2024 10:02 PM EDT [facility] Total Calcium, Plasma 9.8 8.9 - 10.2 mg/dL 11/20/2024 10:02 PM EDT [facility] Total Protein 7.4 6.3 - 7.9 g/dL 11/20/2024 10:02 PM EDT [facility] Albumin, Plasma 4.4 3.5 - 5.2 g/dL 11/20/2024 10:02 PM EDT [facility] AST, Plasma 13 10 - 35 U/L 11/20/2024 10:02 PM EDT [facility] ALT, Plasma 14 10 - 35 U/L 11/20/2024 10:02 PM EDT [facility] Alkaline Phosphatase, Plasma 53 35 - 104 U/L 11/20/2024 10:02 PM EDT [facility] Total Bilirubin, Plasma 1.0 0.2 - 1.1 mg/dL 11/20/2024 10:02 PM EDT [facility] eGFRcr 91.8 mL/min/1.7 3m*2 11/20/2024 10:02 PM EDT [facility] Comment:Reported eGFRcr in m L/min/1.73m2 is based the CKD-EPI 2020 equation that does not use a race coefficient. Blood Venous blood specimen / Unknown Venipuncture / Unknown 11/20/2024 9:17 PM EDT 11/20/2024 9:20 PM EDT us Radha Trujillo DO LAB BLOOD ORDERABLES Final Re sult Performing Organization Address [facility] Co de Phone Number [facility] [address] [place] [address] * hCG qualitative (11/20/2024 9:17 PM EDT) Test Negative Negative 11/20/2024 10:02 PM EDT [facility] Blood Venous blood specimen / Unknown Venipuncture / Unknown 11/20/2024 9:17 PM EDT 11/20/2024 9:20 PM EDT Narrative [facility] - 11/20/2024 10:02 PM EDT Reference Range: Males and non- females: Negative. us Radha Trujillo [employer] LAB BLOOD ORDERABLES Final Re sult Performing Organization Address [facility] de Phone Number [facility] [address] [place] [address] * EKG now - STAT (adult) (11/20/2024 8:52 PM EDT) EKG DIAGNOSIS CLASS Abnormal MUSE ECG Ventricular Rate 83 BPM MUSE ECG Atrial Rate 83 BPM MUSE ECG MI Interval 128 ms MUSE ECG QRSD Interval 72 ms MUSE ECG QT Interval 342 ms MUSE ECG QTC Interval 401 ms MUSE ECG P [place] 60 degrees MUSE ECG R [place] 62 degrees MUSE ECG T Wave [place] 21 degrees MUSE ECG Diagnosis Sinus rhythm [...] ORDERABLES Final Resu lt Performing Organization Address [facility] Co de Phone Number MUSE ECG [...] 1 dose, On 11/20/24 at 2100, STAT 212 (New Bag - Prov ider: Jolene Veras RN) ondansetron (Zofran) injection 4 mg (COMPLETED) 4 mg, Intravenous, Once, 1 dose, On 11/20/24 at 2100, STAT 212 (Given - Provid er: Jolene Veras RN) [...] documented as of this encounter Care Teams Transformation Lead Relationship Specialty Start Date End Date Rey Wyatt MD [address] [place] [address] PCP - General 11/16/24 Angela Oleary, RN [facility] Registered Nurse Cardiology 02/17/24 documented as of this encounter
--- OUTSIDE RECORDS SUMMARY | 2024-12-07 07:03 | XMS_ITS | Encounter Summary ---
Author Organization [facility] Address [address] [place] [address] Care Team Providers Care Digital Photographer Name Role Phone Angela Oleary RN Unavailable Unavailable Rey Wyatt MD Primary Care Provider [phone] Reason for Referral * Imaging (Routine) - Closed Specialty Diagnoses / Procedures Referred By Mili joe Referred To Contact Gastroenterology Diagnoses Hematochezia Abdominal pain, epigastric Procedures Patency Capsule Silverio Tam PA [address] [place] [address] Phone: tel: fax: Referral ID Status Reason Start Date Expiration Date V isits Requested Visits Authorized [id number] Closed Specialty Services Required 10/17/2024 04/18/2026 1 1 Reason for Visit * Imaging (Routine) - Closed Specialty Diagnoses / Procedures Referred By Contac t Referred To Contact Gastroenterology Diagnoses Hematochezia Abdominal pain, epigastric Procedures Patency Capsule Silverio Tam PA [address] [place] [address] Phone: tel: fax: Referral ID Status Reason Start Date Expiration Date V isits Requested Visits Authorized [id number] Closed Specialty Services Required 10/17/2024 04/18/2026 1 1 Encounter Details Date Type Department Care Team (Latest Contact Info) Description 12/07/2024 7:03 AM EDT - 12/07/2024 11:59 PM EDT Hospital Encounter [facility] Endoscopy [address] [place] [address] Estuardo Jon MD [address] [place] [address] Diarrhea, unspecified type (Primary Dx); [...] often do you attend chur ch or uatsdin services? Never 02/22/2024 Do you belong to any clubs o r organizations such as amish groups, unions, fraternal or athletic groups, or [...] Recorded Patient Health Questionnaire-2 Score 0 12/15/2024 [facility] of Occupat ional [facility] [...] place to sleep or slept in a prison (including now)? No 02/09/2024 [place] Depression Scale Answer Date Recorded [place] Depression Scale Total 6 08/08/2024 The thought [...] drink first t casi in the morning (EYE-ENTERPRISE MANAGER) to steady your nerves or to get rid of a hangover? 0 07/16/2024 CAGE Questionnaire Score 0 024 Utilities Answer Date Recorded In the past 12 months has th e [employer], gas, oil, or water [employer] threatened to shut off services in your [...] 4 tablet 09/13/2024 Blood Glucose Monitoring Suppl (MagnaChip SemiconductorTouch Verio Reflect) w/Device kit 04/14/2024 busPIRone (Buspar) 5 MG tablet Take 1 tablet (5 mg) by mouth every night. Takes at 8PM 30 tablet 08/16/2024 cholecalciferol (Vitamin D-3) 50 MCG (1999) capsule 10/25/2024 famotidine (Pepcid) 20 MG tablet [...] mild pain. 30 tablet 1 07/18/2024 Lancets (MagnaChip SemiconductorTouch Delica Plus [id number]) [facility] 04/14/2024 methIMAzole (Tapazole) 10 MG tablet Take 1 tablet by mouth daily. 60 tablet 11/11/2024 01/11/20 25 ondansetron (Zofran) 4 MG tablet Take 1 tablet (4 mg) by mouth every 8 (eight) hours if needed for nausea or vomiting. 3 tablet 5 07/18/2024 MagnaChip SemiconductorTouch Verio test strip 1 each by Other [...] day. 30 tablet 1 07/18/2024 sodium chloride ([place] Nasal [place]) 0.65 % nasal spray Administer 1 spray into each nostril if needed for congestion. 30 mL 12 04/12/2024 Ventolin HFA 108 (90 Base) MCG/ACT inhaler 10/05/2024 ondansetron ODT (Zofran-ODT) 4 MG disintegrating tablet Take 1 tablet (4 mg) by mouth every 8 (eight) hours if needed for nausea or vomiting. 20 tablet 2 03/16/2024 12/31/19 25 predniSONE (Deltasone) 10 MG tablet Take [...] EDT Appointment [facility] [address] [place] [address] Cody Barnett MD [address] [facility] [address] [place] [address] 02/10/2025 10:00 AM EDT Office Visit [facility] Endocrinology [address] [place] [address] Rachel Khan PA [address] [place] [address] 02/16/2025 1:20 PM EDT Office Visit [facility] [place] [address] [facility], [address] [place] [address] Courtney Torres MD [address] [place] [address] 03/15/2025 3:30 PM EDT Consult [facility] [address] [place] [address] Laura Kendy, DIRECTOR OF RETAIL ANALYTICS [address] [place] [address] 04/17/2025 2:00 PM EDT Office Visit [facility] Medicine Specialties [address], [address] [place] [address] Silverio Tam PA [address] [place] [address] documented as of this encounter [...] Will likely need the patency capsule repeated. Silverio CELESTE GI PROCEDURE ORDERABLES Final Result [...] documented as of this encounter Care Teams Digital Photographer Relationship Specialty Start Date End Date Rey Wyatt MD 17[address] [facility] [address] [place] [address] PCP - General 11/16/24 Angela Oleary, RN [facility] Registered Nurse Cardiology 02/17/24 documented as of this encounter
--- OUTSIDE RECORDS SUMMARY | 2024-12-15 14:30 | XMS_ITS | Encounter Summary ---
Author Organization [facility] Address [address] [place] [address] Care Team Providers Care Riddler Operator Name Role Phone Angela Oleary RN Unavailable Unavailable Rey Wyatt MD Primary Care Provider [phone] Reason for Referral * Consultation (Routine) - Authorized Specialty Diagnoses / Procedures Referred By Mili joe Referred To Contact Diagnoses Abdominal pain, epigastric Diarrhea, unspecified type Postural orthostatic tachycardia syndrome (POTS) Hematochezia Silverio Tam PA [id number] [place] [address] Phone: tel: fax: Referral ID Status Reason Start Date Expiration Date V isits Requested Visits Authorized [id number] Authorized 12/15/2024 06/16/2026 1 1 Reason for Visit * Reason Comments Hematochezia Encounter Details Date Type Department Care Team (Late st Contact Info) Description 12/15/2024 2:30 PM EDT [facility] [address] [place] [address] [facility]io Tam [facility] [address] [facility] [address] [place] [address] Weight loss (Primary Dx); Abdominal [...] you attend [facility] or druze services? Never 02/22/2024 Do you belong to any clubs o r organizations such as episcopal groups, unions, fraternal or athletic groups, or [...] Recorded Patient Health Questionnaire-2 Score 0 12/15/2024 [facility] - Occupational Stress Questionnaire Answer Date [...] place to sleep or slept in a m[facility]p (including now)? 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 0 07/16/2024 CAGE Questionnaire Score 0 024 Utilities Answer Date Recorded In the past 12 months has th e [employer], gas, oil, or water company threatened to [...] disease. She is supposed also be seeing [facility] for her POTs; but may also [...] min Stress: No Stress Concern Present (02/22/2024) [facility] - Occupational Stress Questionnaire Feeling of Stress : Not at all Social Connections: Moderately Isolated (02/22/2024) Social Connection and Isolation Panel [NHANES] Frequency of Communication with Friends and Family: More than three times a week Frequency of Social Gatherings with Friends and Family: Once a week Attends Jewish Services: Never Active Member of Clubs or [...] day before colonoscopy Blood Glucose Monitoring Suppl (Userscout Verio Reflect) w/Device kit busPIRone (BUSPAR) 5 [...] mg, Oral, Every 6 hours PRN Lancets (SharethroughTouch Delica Plus [id number]) misc methIMAzole (TAPAZOLE) 10 mg, Oral, Daily ondansetron (ZOFRAN) 4 mg, Oral, Every 8 hours PRN ondansetron ODT (ZOFRAN-ODT) 4 mg, Oral, Every 8 hours PRN SharethroughTouch Verio test strip 1 each, As needed [...] tablet 1 tablet, Oral, Daily sodium chloride (Benton Nasal [place]) 0.65 % nasal spray 1 spray, Each [...] 04/26/2002 Influenza, injectable, quadrivalent, preservative free 04/29/2023 Zank COVID-19 Vaccine (Blue Cap) 18+ 02/21/2021 MMR [...] EDT Appointment [facility] [address] [place] [address] Cody Barnett MD [address] [facility] [address] [place] [phone] 02/10/2025 10:00 AM EDT [facility] [address] [place] [phone] Rachel Khan PA [address] [facility] [address] [place] [address] 02/16/2025 1:20 PM EDT Office Visit [facility] [place] [address] [place] [phone] Courtney Torres MD [address] [place] [address] 03/15/2025 3:[address] [facility] [address] [place] [address] Kendy Sanchez, SPECIAL SERVICES DIRECTOR [address] [place] [address] 04/17/2025 2:00 PM EDT Office Visit [facility] Medicine Specialties [address] [place] [address] Silverio Tam, PA [address] [place] [address] Scheduled Referrals Name Type Priority [...] Detected Not Detected 12/19/2024 2:26 PM EDT [facility] Blood Venous blood specimen / Unknown Venipuncture / Unknown 12/15/2024 3:29 PM EDT 12/15/2024 3:30 PM EDT Narrative [facility] - 12/19/2024 2:26 PM [...] ORDERABLES Final Res ult Performing Organization Address [facility] Co de Phone Number [facility] [address] [place] [address] * T3 (12/15/2024 3:29 PM EDT) Pathologist [facility] T3, Serum 177 87 - 187 ng/dL 12/15/2024 4:54 PM EDT [facility] Blood Venous blood specimen / Unknown Venipuncture / Unknown 12/15/2024 3:29 PM EDT 12/15/2024 3:30 PM EDT [facility] BLOOD ORDERABLES Final Res ult Performing Organization Address [facility] de Phone Number [facility] [address] [place] [address] * (ABNORMAL) CBC and Differential (12/15/2024 3:29 PM EDT) [facility] WBC Count 5.38 3.70 - 10.30 10*3/uL LAB HEMATOLOGY METHOD 12/15/2024 4:38 PM EDT [facility] RBC Count 4.81 3.90 - 5.20 10*6/uL LAB HEMATOLOGY METHOD 12/15/2024 4:38 PM EDT [facility] HGB 12.6 11.2 - 15.7 g/dL LAB HEMATOLOGY METHOD 12/15/2024 4:38 PM EDT [facility] HCT 39.7 34.0 - 45.0 % LAB HEMATOLOGY METHOD 12/15/2024 4:38 PM EDT [facility] Platelet Count 311 155 - 369 10*3/uL LAB HEMATOLOGY METHOD 12/15/2024 4:38 PM EDT [facility] MCV 83 79 - 98 fL LAB HEMATOLOGY METHOD 12/15/2024 4:38 PM EDT [facility] MCH 26.2 26.0 - 32.0 pg LAB HEMATOLOGY METHOD 12/15/2024 4:38 PM EDT [facility] MCHC 31.7 30.7 - 35.5 g/dL LAB HEMATOLOGY METHOD 12/15/2024 4:38 PM EDT [facility] RDW 12.2 11.5 - 14.5 % LAB HEMATOLOGY METHOD 12/15/2024 4:38 PM EDT [facility] MPV 11.2 8.8 - 12.5 fL LAB HEMATOLOGY METHOD 12/15/2024 4:38 PM EDT [facility] nRBC 0.0 <=0.0 per 100 WBCs LAB HEMATOLOGY METHOD 12/15/2024 4:38 PM EDT [facility] Differential Type Automated LAB HEMATOLOGY METHOD 12/15/2024 4:38 PM EDT [facility] Neutrophils % 61 % LAB HEMATOLOGY METHOD 12/15/2024 4:38 PM EDT [facility] Lymphocytes % 32 % LAB HEMATOLOGY METHOD 12/15/2024 4:38 PM EDT [facility] Monocytes % 5 % LAB HEMATOLOGY METHOD 12/15/2024 4:38 PM EDT [facility] Eosinophils % 1 % LAB HEMATOLOGY METHOD 12/15/2024 4:38 PM EDT [facility] Basophils % 1 % LAB HEMATOLOGY METHOD 12/15/2024 4:38 PM EDT [facility] Immature Granulocytes % 0 % LAB HEMATOLOGY METHOD 12/15/2024 4:38 PM EDT [facility] Neutrophils Absolute 3.33 1.60 - 6.10 10*3/uL LAB HEMATOLOGY METHOD 12/15/2024 4:38 PM EDT [facility] Lymphocytes Absolute 1.70 1.20 - 3.90 10*3/uL LAB HEMATOLOGY METHOD 12/15/2024 4:38 PM EDT [facility] Monocytes Absolute 0.25(L) 0.30 - 0.90 10*3/uL LAB HEMATOLOGY METHOD 12/15/2024 4:38 PM EDT [facility] Eosinophils Absolute 0.03 0.00 - 0.50 10*3/uL LAB HEMATOLOGY METHOD 12/15/2024 4:38 PM EDT [facility] Basophils Absolute 0.05 0.00 - 0.10 10*3/uL LAB HEMATOLOGY METHOD 12/15/2024 4:38 PM EDT [facility] Immature Granulocytes Absolute 0.02 0.00 - 0.06 10*3/uL LAB HEMATOLOGY METHOD 12/15/2024 4:38 PM EDT [facility] Blood Venous blood specimen / Unknown Venipuncture / Unknown 12/15/2024 3:29 PM EDT 12/15/2024 3:30 PM EDT Narrative [facility] - 12/15/2024 4:38 PM EDT Therapeutic decision making should be based on absolute values, rather than percentages. us [facility] BLOOD ORDERABLES Final Res ult [facility] [address] [place] [address] * (ABNORMAL) Comprehensive Metabolic Panel, Plasma (12/15/2024 3:29 PM EDT) Glucose, Plasma 84 74 - 99 mg/dL 12/15/2024 4:54 PM EDT [facility] BUN, Plasma 8 7 - 21 mg/dL 12/15/2024 4:54 PM EDT [facility] Creatinine, Plasma 0.60 0.60 - 1.10 mg/dL 12/15/2024 4:54 PM EDT [facility] BUN/Creatinine Ratio 13 12/15/2024 4:54 PM EDT [facility] Sodium, Plasma 140 136 - 145 mmol/L 12/15/2024 4:54 PM EDT [facility] Potassium, Plasma 4.1 3.6 - 4.9 mmol/L 12/15/2024 4:54 PM EDT [facility] Chloride, Plasma 105 97 - 107 mmol/L 12/15/2024 4:54 PM EDT [facility] CO2, Plasma 21(L) 22 - 29 mmol/L 12/15/2024 4:54 PM EDT [facility] Anion Gap 14 6 - 16 mmol/L 12/15/2024 4:54 PM EDT [facility] Total Calcium, Plasma 9.4 8.9 - 10.2 mg/dL 12/15/2024 4:54 PM EDT [facility] Total Protein 8.1(H) 6.3 - 7.9 g/dL 12/15/2024 4:54 PM EDT [facility] Albumin, Plasma 4.6 3.5 - 5.2 g/dL 12/15/2024 4:54 PM EDT [facility] AST, Plasma 16 10 - 35 U/L 12/15/2024 4:54 PM EDT [facility] ALT, Plasma 23 10 - 35 U/L 12/15/2024 4:54 PM EDT [facility] Alkaline Phosphatase, Plasma 58 35 - 104 U/L 12/15/2024 4:54 PM EDT [facility] Total Bilirubin, Plasma 0.7 0.2 - 1.1 mg/dL 12/15/2024 4:54 PM EDT [facility] eGFRcr 127.1 mL/min/1.7 3m*2 12/15/2024 4:54 PM EDT [facility] Comment:Reported eGFRcr in m L/min/1.73m2 is based the CKD-EPI 2020 equation that does not use a race coefficient. Blood Venous blood specimen / Unknown Venipuncture / Unknown 12/15/2024 3:29 PM EDT 12/15/2024 3:30 PM EDT us [facility] BLOOD ORDERABLES Final Res ult [facility] [address] [place] [address] * Prothrombin Time/INR (12/15/2024 3:29 PM EDT) Prothrombin Time 13.7 12.0 - 14.3 sec LAB COAGULATION METHOD 12/15/2024 5:05 PM EDT [facility] INR 1.0 0.9 - 1.1 LAB COAGULATION METHOD 12/15/2024 5:05 PM EDT [facility] Blood Venous blood specimen / Unknown Venipuncture / Unknown 12/15/2024 3:29 PM EDT 12/15/2024 3:30 PM EDT Narrative [facility] - 12/15/2024 5:05 PM EDT OPTIMAL INR RANGES FOR PATIENT ON ORAL ANTICOAGULANT THERAPY Prevention of venous thromboembolism INR 2.0 to 3.0 In patients with heart disease: Atrial fibrillation INR 2.0 to 3.0 Valvular heart disease INR 2.0 to 3.0 Tissue heart valves INR 2.0 to 3.0 Mechanical prosthetic valves INR 2.5 to 3.5 Prevention of recurrent NE INR 2.5 to 3.5 [facility] BLOOD ORDERABLES Final Res ult Performing Organization Address City/[facility]/ZIP Co de Phone Number [facility] [address] [place] [address] * (ABNORMAL) Brayan Henson IgG Ab (12/15/2024 3:29 PM EDT) EBV ANTIBODY TO VIRAL CAPSID ANTIGEN IGG 185.0(H) 0.0 - 21.9 U/mL 12/18/2024 11:11 AM EDT [facility]) Blood Venous blood specimen / Unknown Venipuncture / Unknown 12/15/2024 3:29 PM EDT 12/15/2024 3:30 PM EDT Narrative [facility]) - 12/18/2024 11:11 AM EDT INTERPRETIVE INFORMATION: Brayan-Henson Virus Antibody to Viral Capsid Antigen, IgG 17.9 U/mL or less.......Not Detected 18.0-21.9 U/mL..........Indeterminate - Repeat testing in 10-14 days may be helpful. 22.0 U/mL or greater....Detected Performed By: [facility] [address] [place] [address] Boardmarker: Wilber Pardo MD, PhD CLIA Number: [id number] [facility] BLOOD ORDERABLES Final Res ult Performing Organization Address City/[facility]/ZIP Co de Phone Number [facility]) [address] [place] [address] * Brayan-Henson virus VCA, IgM (12/15/2024 3:29 [...] helpful. 44.0 U/mL or greater....Detected Performed By: [facility] [address] [place] [address] Boardmarker: Wilber Pardo MD, PhD CLIA Number: [id number] us [facility] BLOOD ORDERABLES Final Res ult [facility]) [address] [place] [address] documented in this encounter Visit Diagnoses Diagnosis [...] documented as of this encounter Care Teams Riddler Operator Relationship Specialty Start Date End Date Rey Wyatt MD [address] [facility] [address] [place] [address] PCP - General 11/16/24 Angela Oleary, RN [facility] Registered Nurse Cardiology 02/17/24 documented as of this encounter
[2025-01-04 17:57] LABS: Free T4 (Free Thyroxine) 1.01 ng/dl (0.78-2.19); T4 (Thyroxine) 7.6 ug/dl (5.53-11.0)
[2025-01-04 18:11] LABS: Thyroid Stimulating Hormone < 0.02 uIU/mL (0.465-4.68)
[2025-01-05 08:13] LABS: Triiodothyronine (T3) Free 3.1 pg/mL (2.0-4.4)
--- OUTSIDE RECORDS SUMMARY | 2025-01-05 09:03 | XMS_ITS | Encounter Summary ---
Author Organization Healthcare Address [address] [place] [address] Care Team Providers Care Reducing Salon Attendant Name Role Phone Molly Louis MD Primary Care Provider [phone] Angela Oleary RN Unavailable Unavailable Rey Wyatt MD Primary Care Provider [phone] Reason for Visit * Reason Onset Date Comments Med Refill 03/23/2024 Encounter Details Date Type Department Care Team ([facility] Contact Info) Description 03/23/2024 Refill Medical Office Building Obstetrics and Gynecology [address] [facility], [address] [place] [address] Shalonda [place], INFANT CAREGIVER [address] [facility] [address] [place] [address] Social History Tobacco Use Types Packs/Day Years [...] How often do you attend chur or anabaptism services? Never 02/22/2024 Do you belong to [...] Date Recorded Patient Health Questionnaire-2 Score 0 02/17/2024 [facility]at [facility] - Occupational Stress [...] place to sleep or slept in a fci (including now)? No 02/09/2024 [place] Depression Scale Answer Date Recorded [place] Depression Scale Total 8 02/22/2024 The thought of harming myself has occurred to me . Never 02/22/2024 CAGE ASSESSMENT Answer Date Recorded Cage unable to access Not on file 03/11/2024 Cage max number of drinks Not on file 2023 Cage Beverages a week Not on file 03/11/2024 Have you ever felt you should CUT down on your d rinking? 0 03/11/2024 Have you been ANNOYED by people criticizing your drinking? 0 03/11/2024 Have you felt GUILTY about your drinking? 0 03/11/2024 Have you had a drink first t casi in the morning (EYE-CONCESSION MANAGER) to steady your nerves or to get rid of a hangover? 0 03/11/2024 CAGE Questionnaire Score 0 024 Utilities Answer Date Recorded In the past 12 months has th e electric, gas, oil, or water company threatened to shut off services in your home? No 02/09/2024 Comments Yes Sex and Gender Information Value Date Recorded Sex Assigned at Not on file Legal Sex Female 7:36 PM EDT Gender Identity Not on file Sexual Orientation Not on file documented as of this encounter Miscellaneous Notes * Telephone Encounter - Luh Keenan, RN - 03/23/2024 8:50 AM EDT Patient already has refill on file. Luh Keenan, RN documented in this encounter Plan of Treatment Upcoming Encounters Date Type Department Care Team (Late st Contact Info) Description 01/17/2025 7:00 AM EDT Appointment [facility] [address] [place] [address] Cody Barnett MD [address] [place] [address] 02/10/2025 10:00 AM EDT [facility] [address] [place] [address] Rachel Khan PA [address] [facility] [address] [place] [address] 02/16/2025 1:20 PM EDT Office Visit [facility] [place] [address] [facility], [address] [place] [address] Courtney Torres MD [address] [facility] [address] [place] [address] 03/15/2025 3:30 PM EDT Consult [facility] [address] [place] [address] Kendy Sanchez APRN [address] [place] [address] 04/17/2025 2:00 PM EDT Office Visit [facility] Special[facility] [address] [place] [address] Silverio Tam PA [address] [place] [address] documented as of this encounter Goals Goal Patient Goal Type Associated Problems Recent Progress Patient-Stated? Author Delayed Delivery Care Plan CPM S22 PP LABOR (OBSTETRICS) No Open Scheduling, Background documented as of this encounter Visit Diagnoses Not on filedocumented in this encounter Additional Health Concerns Active Problems Noted Date Diagnosed Date CPM S22 PP LABOR (OBSTETRICS) 02/24/2024 Infection Onset Date Last Indicated Resolved Time Respiratory Rule-Out 05/25/2024 05/25/2024 024 4:54 AM EDT Rhinovirus Comment:Patient no longer sick 05/25/2024 05/25/2024 11:39 AM EST Gastrointestinal Rule-Out 11/20/2024 11/20/2024 9:53 PM EDT Assessment Noted Time A fall risk assessment has been complete d for the patient 03/21/2024 12:23 PM EDT A Body Mass Index follow-up plan has been documented for the patient 03/16/2024 11:33 AM EDT documented as of this encounter Care Teams Reducing Salon Attendant Relationship Specialty Start Date End Date Molly Louis MD [address] [place] [address] PCP - General Family Medicine 02/09/24 11/15/24 Rey Wyatt MD [address] [place] [address] PCP - General 11/16/24 Angela Oleary, RN [facility] Registered Nurse Cardiology 02/17/24 documented as of this encounter
--- OUTSIDE RECORDS SUMMARY | 2025-01-05 09:04 | XMS_ITS | Encounter Summary ---
Author Organization Healthcare Address [address] [place] [address] Care Team Providers Care Canary Raiser Name Role Phone Angela Oleary RN Unavailable Unavailable Rey Wyatt MD Primary Care Provider [phone] Encounter Details Date Type Department Care Team (Late st Contact Info) Description 12/09/2024 Orders Only [facility] Medicine Specialties [address] [place] [address] Silverio Tam PA [address] [place] [address] Social History Tobacco Use Types Packs/Day Years [...] often do you attend chur ch or anglican services? Never 02/22/2024 Do you belong to any clubs o r organizations such as buddhist groups, unions, fraternal or athletic groups, or [...] Recorded Patient Health Questionnaire-2 Score 0 11/16/2024 [facility] - Occupational Stress Questionnaire Answer [...] in a mcc (including now)? No 02/09/2024 [place] Depression Scale Answer Date Recorded [place] Depression Scale Total 6 08/08/2024 The thought [...] drink first t casi in the morning (EYE-UNINDENTURED APPRENTICE) to steady your nerves or to get rid of a hangover? 0 07/16/2024 CAGE Questionnaire Score 0 024 Utilities Answer Date Recorded In the past 12 months has th e [employer], gas, oil, or water company threatened to shut off services in your home? No 02/09/2024 Comments No Sex and Gender Information Value Date Recorded Sex Assigned at Not on file Legal Sex Female 7:36 PM EDT Gender Identity Not on file Sexual Orientation Not on file documented as of this encounter Plan of Treatment Upcoming Encounters Date Type Department Care Team (Late st Contact Info) Description 01/17/2025 7:00 AM EDT Appointment [facility] [address] [place] [address] Cody Barnett MD [address] [place] [address] 02/10/2025 10:00 AM EDT Office Visit [facility] Endocrinology [address] [place] [phone] Rachel Khan PA [address] [facility] [address] [place] [address] 02/16/2025 1:20 PM EDT Office Visit [facility] [address] [facility], [address] [place] [address] Courtney Torres MD [address] [facility] [address] [place] [address] 03/15/2025 3:30 PM EDT Consult [facility] [address] [place] [address] Kendy Sanchez APRN [address] [place] [address] 04/17/2025 2:00 PM EDT Office Visit [facility] Medicine Specialties [address] [place] [address] Silverio Tam PA [address] [place] [address] documented as of this encounter [...] documented as of this encounter Care Teams Canary Raiser Relationship Specialty Start Date End Date Rey Wyatt MD [address] [place] [address] PCP - General 11/16/24 Angela Oleary, RN [facility] Registered Nurse Cardiology 02/17/24 documented as of this encounter
--- OUTSIDE RECORDS SUMMARY | 2025-01-05 09:04 | XMS_ITS | Encounter Summary ---
Author Organization Healthcare Address [address] [place] [address] Care Team Providers Care Parts Room Associate Name Role Phone Angela Oleary RN Unavailable Unavailable Rey Wyatt MD Primary Care Provider [phone] Encounter Details Date Type Department Care Team (Late st Contact Info) Description 11/16/2024 Telephone [place] [facility] [address] [place] [address] Kendy Sanchez, TRIAGE SPECIALIST [address] [place] [address] Social History Tobacco Use Types [...] often do you attend chur ch or christianity services? Never 02/22/2024 Do you belong to any clubs o r organizations such as holiness groups, unions, fraternal or athletic groups, or [...] Recorded Patient Health Questionnaire-2 Score 0 11/16/2024 [facility] - Occupational Stress Questionnaire Answer Date [...] in a custodial (including now)? No 02/09/2024 [place] Depression Scale Answer Date Recorded [place] Depression Scale Total 6 08/08/2024 The thought [...] drink first t casi in the morning (EYE-BOTTOM FILLER) to steady your nerves or to get [...] EDT Appointment [facility] [address] [place] [address] Cody Barnett MD [address] [facility] [address] [place] [address] 02/10/2025 10:00 AM EDT Office Visit [facility] Endocrinology [address] [place] [phone] Rachel Khan PA [address] [facility] [address] [place] [address] 02/16/2025 1:20 PM EDT Office Visit [facility] [place] [address] [place] [address] Courtney Torres MD [address] [facility] [address] [place] [address] 03/15/2025 3:30 PM EDT Consult [place] [facility] [address] [place] [address] Kendy Sanchez APRN [address] [facility] [address] [place] [address] 04/17/2025 2:00 PM EDT Office Visit [facility] [address] [place] [address] Silverio Tam PA [address] [facility] [address] [place] [address] documented as of this encounter [...] documented as of this encounter Care Teams Parts Room Associate Relationship Specialty Start Date End Date Rey Wyatt MD [address] [place] [address] PCP - General 11/16/24 Angela Oleary, RN [facility] Registered Nurse Cardiology 02/17/24 documented as of this encounter
--- OUTSIDE RECORDS SUMMARY | 2025-01-05 09:04 | XMS_ITS | Encounter Summary ---
Author Organization Healthcare Address [address] [place] [address] Care Team Providers Care Paint Roller Covermaker Name Role Phone Angela Oleary RN Unavailable Unavailable eRy Wyatt MD Primary Care Provider Encounter Details Date Type Department Care Team (Latest Contact Info) Description 12/07/2024 Travel Social History Tobacco Use Types Packs/Day Years [...] week 02/22/2024 How often do you attend [facility] or hindu services? Never 02/22/2024 Do you belong to any clubs o r organizations such as mandaeism groups, unions, fraternal or athletic groups, or [...] Recorded Patient Health Questionnaire-2 Score 0 11/16/2024 [facility] Occupat ional Health - Occupational Stress [...] in a mcfp (including now)? No 02/09/2024 [place] Depression Scale Answer Date Recorded [place] Depression Scale Total 6 08/08/2024 The thought [...] drink first t casi in the morning (EYE-HAND TRIMMER) to steady your nerves or to [...] Appointment [facility] Endoscopy [address] [place] [id number] Cody Barnett MD [address] [place] [address] 02/10/2025 10:00 AM EDT [facility] [address] [place] [address] Rachel Khan PA [address] [place] [address] 02/16/2025 1:20 PM EDT Office Visit [facility] [place] [address] [place] [address] Courtney Torres MD [address] [place] [address] 03/15/2025 3:30 PM EDT Consult [facility] [address], [address] [place] [address] Kendy Sanchez, PROTECTION CHIEF IND[employer]RIAL [employer]ANT [address] [place] [address] 04/17/2025 2:00 PM EDT Office Visit [facility] Medicine Specialties [address], 2[address] [place] [address] Silverio Tam PA [address] [place] [address] documented as of this encounter [...] documented as of this encounter Care Teams Paint Roller Covermaker Relationship Specialty Start Date End Date Rey Wyatt MD [address] [place] [address] PCP - General 11/16/24 Angela Oleary, RN [facility] Registered Nurse Cardiology 02/17/24 documented as of this encounter
--- OUTSIDE RECORDS SUMMARY | 2025-01-05 09:04 | XMS_ITS | Encounter Summary ---
Author Organization Healthcare Address [address] [place] [address] Care Team Providers Care Supervisor Smoke Control Name Role Phone Molly Louis MD Primary Care Provider [phone] Angela Oleary RN Unavailable Unavailable Rey Wyatt MD Primary Care Provider [phone] Encounter Details Date Type Department Care Team (Late st Contact Info) Description 10/21/2024 [facility] [address] [place] [address] Roland Wooten MD [address] [facility] [address] [place] [address] Social History Tobacco Use Types Packs/Day Years [...] How often do you attend chur or taoist services? Never 02/22/2024 Do you belong to any clubs o r organizations such as latter-day groups, unions, fraternal or athletic groups, or [...] Recorded Patient Health Questionnaire-2 Score 0 11/16/2024 [facility] of Occupat ional Health - Occupational [...] in a correction (including now)? No 02/09/2024 [place] Depression Scale Answer Date Recorded [place] Depression Scale Total 6 08/08/2024 The thought [...] drink first t casi in the morning (EYE-DROP BOARD WORKER) to steady your nerves or to [...] on file documented as of this encounter Functional Status * Over the past 2 weeks, how often have you been bothered by any of the following problems? Question Answer Date of Assessment Author Little interest or pleasure in doing things Not at all 11/16/2024 3:00 PM EDAngella Rankin Feeling down, depressed, or hopeless Not at all 10/26 3:00 PM EDAngella Rankin Patient Health Questionnaire-2 Score 0 10/26 3:00 [...] down Not at all 11/16/2024 3:00 PM EDGi Rankin Trouble concentrating on thi ngs, such as reading the newspaper or watching television Not at all 11/16/2024 3:00 PM EDAngella Rankin Moving or speaking so slowly that other people could have noticed? Or the opposite - being so fidgety or restless that you have been moving around a lot more than usual. Not at all 11/16/2024 3:00 PM EDAngella Rankin Thoughts that you would be b gómez off or hurting yourself in some way Not at all 11/16/2024 3:00 PM EDT Angella Castano Patient Health Questionnaire-9 Score 0 10/26 3:00 PM Agnella Hillman * Calculated C-SSRS Risk Score (Lifetime/Recent) Answer Date of Assessment Author No Risk Indicated 11/20/2024 9:44 PM EDT Shani Ruelas, RN * If you checked off any problems on this questionnaire so far, Question Answer Date of Assessment Author How difficult have these problems made it for you to do your work, take care of things at home, or get along with other people? Not difficult at all 11/16/2024 3:00 PM EDT Angella Castano * Question Answer Date of Assessment Author 1. Wish to be (Past 1 Month) No 11/20/2024 9:44 PM EDT Shani Ruelas, RN 2. Non-Specific Active Suici keron Thoughts (Past 1 Month) No 11/20/2024 9:44 PM EDT Giulia Ruelas, RN 6. Suicidal Behavior (Lifetime) No 9:44 PM EDT Shani Ruelas RN documented as of this encounter Miscellaneous Notes * Telephone Encounter - Shani Monreal RN - 10/21/2024 10:17 AM EDT Called an spoke with patient, has still not been discharged from [facility], advised that Dr Wooten could call this afternoon and requested recent lab results be faxed to [phone]. * Telephone Encounter - Cindy Mckeon - 10/21/2024 9:19 AM EDT Patient Phone Message Reason for Call: Pt called back to say she is being discharged from the hospital today. She asks for a call back aiden. Best contact number and optimal time of day to reach caller: [phone] Note: Please do not reply to this message. Follow-up communication and further actions as a result of this message need to be communicated with the patient directly, if the patient is not active onMyChart. If the patient is active on MyChart, they will receive notification of the communication/outcome via MyChart. * Telephone Encounter - Paris Thomas - 10/21/2024 8:05 AM EDT Same Day Appt/Overbook Request Reason for Call: Pt is in-patient at [facility] due to a Thyroid related emergency. Pt doesn't think she will be discharged in time for her 10:40 apt today so the apt was rescheduled. Pt said she really needs to be seen and she is worried about going over the weekend without consulting with Dr Wooten. Pls advise. Best contact number: [phone] (mobile) Optimal time of day to reach caller: ANYTIME Additional comments/information from caller: None Note: Please do not reply to this message. Follow-up communication and further actions as a result of this message need to be communicated with the patient directly, if the patient is not active onMyChart. If the patient is active on MyChart, they will receive notification of the communication/outcome via MyChart. documented in this encounter Plan of Treatment Upcoming Encounters Date Type Department Care Team (Late st Contact Info) Description 01/17/2025 7:00 AM EDT Appointment P[facility] S Endoscopy [address] [place] [address] Cody Barnett MD [address] [place] [address] 02/10/2025 10:00 AM EDT [facility] [address] [place] [address] Rachel Khan PA [address] [facility] [address] [place] [address] 02/16/2025 1:20 PM EDT Office Visit [facility] [place] [address] [place] [address] Courtney Torres MD [address] [place] [address] 03/15/2025 3:30 PM EDT Consult [place] [facility] [address], [address] [place] [address] Kendy Sanchez APRN [address] [place] [address] 04/17/2025 2:00 PM EDT Office Visit [facility] [address], [address] [place] [address] Silverio Tam PA [address] [place] [address] documented as of this encounter [...] plan has been documented for the patient 09/06/2024 8:59 AM EST documented as of this encounter Care Teams Supervisor Smoke Control Relationship Specialty Start Date End Date Molly Louis MD [address] [place] [address] PCP - General Family Medicine 02/09/24 11/15/24 [place] [address] [place] [address] [address] [place] [address] PCP - General 11/16/24 Angela Oleary, RN [facility] Registered Nurse Cardiology 02/17/24 documented as of this encounter
--- OUTSIDE RECORDS SUMMARY | 2025-01-05 09:04 | XMS_ITS | Encounter Summary ---
Author Organization Healthcare Address [address] [place] [address] Care Team Providers Care Internal Control Consultant Name Role Phone Molly Louis MD Primary Care Provider [phone] Angela Oleary RN Unavailable Unavailable Rey Wyatt MD Primary Care Provider [phone] Encounter Details Date Type Department Care Team (Late st Contact Info) Description 10/21/2024 Telephone [facility] [place] [address] [place] [address] None, None [address] [place], [place] [id number] Social History Tobacco Use Types Packs/Day Years [...] often do you attend chur ch or yazidism services? Never 02/22/2024 Do you belong to [...] Score 0 11/16/2024 [facility] of Occupat ional [facility] - Occupational Stress Questionnaire Answer [...] in a fci (including now)? No 02/09/2024 [place] Depression Scale Answer Date Recorded [place] Depression Scale Total 6 08/08/2024 The thought [...] drink first t casi in the morning (EYE-SENIOR WATER/WASTEWATER ENGINEER) to steady your nerves or to [...] things Not at all 11/16/2024 3:00 PM Angella Hillman Feeling down, depressed, or hopeless Not at all 10/26 3:00 PM EDAngella Rankin Patient Health Questionnaire-2 Score 0 10/26 3:00 PM EDAngella Rankin * Question Answer Date of Assessment Author Trouble falling or staying a sleep, or sleeping too much Not at all 11/16/2024 3:00 PM EDAngella Rankin Feeling tired or having little energy Not at all 3:00 PM EDAngella Rankin Poor appetite or overeating Not at all 11/16/2024 3: 00 PM EDAngella Rankin Feeling bad about yourself - or that you are a failure or have let yourself or your family down Not at all 11/16/2024 3:00 PM Gi Hillman Trouble concentrating on thi ngs, such as reading the newspaper or watching television Not at all 11/16/2024 3:00 PM Angella Hillman Moving or speaking so slowly that other people could have noticed? Or the opposite - being so fidgety or restless that you have been moving around a lot more than usual. Not at all 11/16/2024 3:00 PM Angella Hillman Thoughts that you would be b gómez off or hurting yourself in some way Not at all 11/16/2024 3:00 PM EDAngella Rankin Patient Health Questionnaire-9 Score 0 10/26 3:00 PM EDAngella Rankin * Calculated C-SSRS Risk Score (Lifetime/Recent) Answer [...] Not difficult at all 11/16/2024 3:00 PM Valeriano Hillmana L * Question Answer Date of Assessment Author 1. Wish to be (Past 1 Month) No 11/20/2024 9:44 PM EDT Shani Ruelas, RN 2. Non-Specific Active Suici keron Thoughts (Past 1 Month) No 11/20/2024 9:44 PM EDT Giulia Ruelas RN 6. Suicidal Behavior (Lifetime) No 9:44 PM EDT Shani Ruelas RN documented as of this encounter Miscellaneous Notes * Telephone Encounter - Selina Samuels - 10/21/2024 11:28 AM EDT Clinical Concern/Question Reason for Call: Per [facility], patient needs hospital discharge follow up for POTS, tachycardia and chest? Best contact number: Other: [phone] Optimal time of day to reach caller: ANYTIME Additional comments/information from caller: None Note: Please do not reply to this message. Follow-up communication and further actions as a result of this message need to be communicated with the patient directly, if the patient is not active onMyChart. If the patient is active on MyChart, they will receive notification of the communication/outcome via Amperionhart. documented in this encounter Plan of Treatment Upcoming Encounters Date Type Department Care Team (Late st Contact Info) Description 01/17/2025 7:00 AM EDT Appointment [facility] S Endoscopy [address] [place] [address] Cody Barnett MD [address] [place] [address] 02/10/2025 10:00 AM EDT Office [facility] Endocrinology [address] [place] [address] Rachel Khan PA [address] [place] [address] 02/16/2025 1:20 PM EDT Office Visit [facility] [place] [address] [place] [address] Courtney Torres MD [address] [place] [address] 03/15/2025 3:[address] [facility] [address], [address] [place] [address] Kendy Sanchez APRN [address] [place] [address] 04/17/2025 2:00 PM EDT Office [facility] Medicine Specialties [address], [address] [place] [address] Silverio Tam PA [address] [place] [address] documented as of this encounter [...] documented as of this encounter Care Teams Internal Control Consultant Relationship Specialty Start Date End Date Molly Louis MD [address] [place] [address] [place] [address] PCP - General Family Medicine 02/09/24 11/15/24 [place] [address] [place] [address] [place] [address] PCP - General 11/16/24 Angela Oleary, RN [facility] Registered Nurse Cardiology 02/17/24 documented as of this encounter
--- OUTSIDE RECORDS SUMMARY | 2025-01-05 09:04 | XMS_ITS | Encounter Summary ---
Author Organization Healthcare Address [address] [place] [address] Care Team Providers Care Tin Assorter Name Role Phone Angela Oleary RN Unavailable Unavailable Rey Wyatt MD Primary Care Provider [phone] Encounter Details Date Type Department Care Team (Latest Contact Info) Description 12/08/2024 Travel Social History Tobacco Use Types Packs/Day [...] week 02/22/2024 How often do you attend [facility] or gnosticist services? Never 02/22/2024 Do you belong to any clubs o r organizations such as methodist groups, unions, fraternal or athletic groups, or [...] Recorded Patient Health Questionnaire-2 Score 0 11/16/2024 [facility] of Occupat ional Health - Occupational [...] in a mcc (including now)? No 02/09/2024 [place] Depression Scale Answer Date Recorded [place] Depression Scale Total 6 08/08/2024 The thought [...] drink first t casi in the morning (EYE-GOVERNOR ASSEMBLER) to steady your nerves or to get [...] Appointment PAV S Endoscopy [address] [place] [phone] Cody Barnett MD [address] [place] [address] 02/10/2025 10:00 AM EDT [facility] [address] [place] [address] Rachel Khan PA [address] [place] [address] 02/16/2025 1:20 PM EDT Office Visit [facility] [place] [address] [place] [address] Courtney Torres MD [address] [place] [address] 03/15/2025 3:30 PM EDT Consult [facility] [address] [place] [address] Kendy Sanchez, STENO POOL SUPERVISOR [address] [place] [address] 04/17/2025 2:00 PM EDT Office Visit [facility] Medicine Specialties [address], [address] [place] [address] Silverio Tam PA [address] [place] [address] documented as of this encounter [...] documented as of this encounter Care Teams Tin Assorter Relationship Specialty Start Date End Date Rey Wyatt MD [address] [place] [address] PCP - General 11/16/24 Angela Oleary, RN [facility] Registered Nurse Cardiology 02/17/24 documented as of this encounter
--- OUTSIDE RECORDS SUMMARY | 2025-01-05 09:04 | XMS_ITS | Encounter Summary ---
Author Organization Healthcare Address [address] [place] [address] Care Team Providers Care Machine Attendant Name Role Phone Angela Oleary RN Unavailable Unavailable Rey Wyatt MD Primary Care Provider [phone] Encounter Details Date Type Department Care Team (Latest Contact Info) Description 11/20/2024 Travel Social History Tobacco Use Types Packs/Day [...] week 02/22/2024 How often do you attend [facility] or oriental orthodox services? Never 02/22/2024 Do you belong to any clubs o r organizations such as baptism groups, unions, fraternal or athletic groups, or [...] Recorded Patient Health Questionnaire-2 Score 0 11/16/2024 [facility] of Occupat ional Health - Occupational [...] a long term (including now)? No 02/09/2024 [place] Depression Scale Answer Date Recorded [place] Depression Scale Total 6 08/08/2024 The thought [...] drink first t casi in the morning (EYE-WELFARE ELIGIBILITY INTERVIEWER) to steady your nerves or to get rid of a hangover? 0 07/16/2024 CAGE Questionnaire Score 0 024 Utilities Answer Date Recorded In the past 12 months has th e [employer], gas, oil, or water company threatened to shut off services in your home? No 02/09/2024 Comments No Sex and Gender Information Value Date Recorded Sex Assigned at Not on file Legal Sex Female 7:36 PM EDT Gender Identity Not on file Sexual Orientation Not on file documented as of this encounter Functional Status * Calculated C-SSRS Risk Score (Lifetime/Recent) Answer Date of Assessment Author No Risk Indicated 11/20/2024 9:44 PM EDT Shani Ruelas RN * Question Answer Date of Assessment Author 1. Wish to be (Past 1 Month) No 11/20/2024 9:44 PM EDT Shani Ruelas RN 2. Non-Specific Active Suici keron Thoughts (Past 1 Month) No 11/20/2024 9:44 PM EDT Giulia Ruelas RN 6. Suicidal Behavior (Lifetime) No 9:44 PM EDT Shani Ruelas RN documented as of this encounter Plan of Treatment Upcoming Encounters Date Type Department Care Team (Late st Contact Info) Description 01/17/2025 7:00 AM EDT Appointment [facility] S Endoscopy [address] [place] [address] Cody Barnett MD [address] [place] [address] 02/10/2025 10:00 AM EDT Office Visit [facility] Endocrinology [address] [place] [address] Rachel Khan PA [address] [facility] [address] [place] [address] 02/16/2025 1:20 PM EDT [facility] Visit [facility] [place] [address] [facility] [place] [address] Courtney Torres MD [address] [facility] [address] [place] [address] 03/15/2025 3:30 PM EDT Consult [facility] [address], [address] [place] [address] Kendy Sanchez APRN [address] [place] [address] 04/17/2025 2:00 PM EDT Office Visit [facility] Medicine Specialties [address] [place] [address] Silverio Tam PA [address] [facility] [address] [place] [address] documented as of this encounter Goals Goal [...] documented as of this encounter Care Teams Machine Attendant Relationship Specialty Start Date End Date Rey Wyatt MD [address] [facility] [address] [place] [address] PCP - General 11/16/24 Angela Oleary, RN [facility] Registered Nurse Cardiology 02/17/24 documented as of this encounter
--- OUTSIDE RECORDS SUMMARY | 2025-01-05 09:04 | XMS_ITS | Encounter Summary ---
Author Organization Healthcare Address [address] [place] [address] Care Team Providers Care Broke Man Name Role Phone Molly Louis MD Primary Care Provider [phone] Angela Oleary RN Unavailable Unavailable Encounter Details Date Type Department Care Team (Latest Contact Info) Description 11/13/2024 Travel Social History Tobacco Use Types Packs/Day [...] often do you attend chur ch or jainism services? Never 02/22/2024 Do you belong to any clubs o r organizations such as mu-ism groups, unions, fraternal or athletic groups, or [...] Answer Date Recorded Patient Health Questionnaire-2 Score 2 09/06/2024 [facility] of Occupat ional [facility] - [...] in a fci (including now)? No 02/09/2024 [place] Depression Scale Answer Date Recorded [place] Depression Scale Total 6 08/08/2024 The thought of harming myself has occurred to me . Never 08/08/2024 PHQ-9 Answer Date Recorded Patient Health Questionnaire-9 Score 0 08/17/2024 CAGE ASSESSMENT Answer Date Recorded Cage unable [...] drink first t casi in the morning (EYE-CAMP COUNSELOR) to steady your nerves or to [...] EDT Appointment [facility] S Endoscopy [address] [place] [address] Cody Barnett MD [address] [place] [address] 02/10/2025 10:00 AM EDT [facility] [address] [place] [address] Rachel Khan PA [address] [place] [address] 02/16/2025 1:20 PM EDT Office Visit [place] [facility] [place] [address] [place] [address] Courtney Torres MD [address] [place] [address] 03/15/2025 3:30 PM EDT Consult [facility] [address] [place] [address] Kendy Sanchez, SERVICE WORKER [address] [place] [address] 04/17/2025 2:00 PM EDT Office Visit [facility] Medicine Specialties [address] [place] [address] Silverio Tam PA [address] [place] [address] documented as of this encounter Goals Goal [...] Time PHQ-9 Depression Total Score: 0 08/17/19 25 2:04 PM EST A fall risk assessment has been complete d for the patient 08/17/2024 2:04 PM EST A Body Mass Index follow-up plan has been documented for the patient 11/16/2024 10:39 AM EDT documented as of this encounter Care Teams Broke Man Relationship Specialty Start Date End Date Molly Louis MD [address] [id number] PCP - General Family Medicine 02/09/24 11/15/24 Angela Oleary, RN [facility] Registered Nurse Cardiology 02/17/24 documented as of this encounter
--- OUTSIDE RECORDS SUMMARY | 2025-01-05 09:04 | XMS_ITS | Encounter Summary ---
Author Organization Healthcare Address [address] [id number] Care Team Providers Care Tester Food Products Name Role Phone Molly Louis MD Primary Care Provider [phone] Angela Oleary RN Unavailable Unavailable Encounter Details Date Type Department Care Team (Late st Contact Info) Description 11/14/2024 Orders Only [place] [facility] Endocrinology [address] [phone] Abundio Kyle MBBS [address] [place], [place] [id number] Thyrotoxicosis with Tricia thyroiditis (Primary Dx) Social History Tobacco Use Types [...] often do you attend chur ch or mu-ism services? Never 02/22/2024 Do you belong to any clubs o r organizations such as samaritan groups, unions, fraternal or athletic groups, or [...] Recorded Patient Health Questionnaire-2 Score 2 09/06/2024 [facility] - Occupational Stress Questionnaire Answer [...] in a half-way (including now)? 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 She however tolerated IV steroids recently when admitted for thyrotoxicosis. She wants to try prednisone for now. Dicussed using anti-histamine like benadryl and to stop the medication if she has a reaction. Repeat TSH and Ft4 in 4 weeks Cosigned by Roland Wooten MD at 11/14/2024 2:55 PM EDT Associated attestation - Roland Wooten MD - 11/14/2024 2:55 PM EDT Signature Only documented in this encounter Plan of Treatment Upcoming Encounters Date Type Department Care Team (Late st Contact Info) Description 01/17/2025 7:00 AM EDT Appointment [facility] [address] [place] [address] Cody Barnett MD [address] [place] [address] 02/10/2025 10:00 AM EDT Office Visit [facility] Endocrinology [address] [place] [phone] Rachel Khan PA [address] [place] [address] 02/16/2025 1:20 PM EDT Office Visit [facility] [place] [address], [address] [place] [phone] Courtney Torres MD [address] [place] [address] 03/15/2025 3:30 PM EDT Consult [facility] [address], 1st [place] [address] Kendy Sanchez, TRISTAN [address] [place] [address] 04/17/2025 2:00 PM EDT Office Visit [facility] Medicine Specialties [address], 2nd [place] [address] Silverio Tam PA [address] [place] [address] documented as of this encounter Goals Goal Patient Goal Type Associated Problems Recent Progress Patient-Stated? Author Delayed Delivery Care Plan CPM S22 PP LABOR (OBSTETRICS) No Open Scheduling, Background documented as of this encounter Results * T4, free (12/15/2024 3:29 PM EDT) Free T4, Plasma 1.7 0.8 - 1.7 ng/dL 12/15/2024 4:54 PM EDT [facility] Blood Venous blood specimen / Unknown Venipuncture / Unknown 12/15/2024 3:29 PM EDT 12/15/2024 3:30 PM EDT Narrative [facility] - 12/15/2024 4:54 PM EDT Free T4 Trimester Specific Ranges 1st Trimester 0.9 - 1.50 ng/dL 2nd Trimester 0.7 - 1.40 ng/dL 3rd Trimester 0.7 - 1.24 ng/dL us Roland Wooten MD LAB BLOOD ORDERABLES Final Resu lt Performing Organization Address [facility] Co de Phone Number [facility] [address] [place] [address] * (ABNORMAL) TSH (12/15/2024 3:29 PM EDT) Thyroid Stimulating Hormone, Plasma <0.01(L) 0.40 - 4.20 uIU/mL 12/15/2024 4:54 PM EDT [facility] Blood Venous blood specimen / Unknown Venipuncture / Unknown 12/15/2024 3:29 PM EDT 12/15/2024 3:30 PM EDT Narrative [facility] - 12/15/2024 4:54 PM EDT Trimester Specific Ranges TSH ( IU/mL) 1st Trimester 0.1 - 3.0 2nd Trimester 0.19 - 4.06 3rd Trimester 0.3 - 3.7 us Roland Wooten MD LAB BLOOD ORDERABLES Final Resu lt Performing Organization Address [facility] Co de Phone Number [facility] [address] [place] [address] documented in this encounter Visit Diagnoses Diagnosis Thyrotoxicosis with Tricia thyroiditis- Primary Thyrotoxicosis of other specified origin [...] documented as of this encounter Care Teams Tester Food Products Relationship Specialty Start Date End Date Molly Louis MD [address] [place], [place] [phone] PCP - General Family Medicine 02/09/24 11/15/24 Angela Oleary, RN [facility] Registered Nurse Cardiology 02/17/24 documented as of this encounter
--- OUTSIDE RECORDS SUMMARY | 2025-01-05 09:04 | XMS_ITS | Encounter Summary ---
Author Organization Healthcare Address [address] [place] [address] Care Team Providers Care Shearer Printed Circuit Boards Name Role Phone Angela Oleary RN Unavailable Unavailable Rey Wyatt MD Primary Care Provider [phone] Encounter Details Date Type Department Care Team (Latest Contact Info) Description 11/16/2024 Travel Social History Tobacco Use Types Packs/Day [...] week 02/22/2024 How often do you attend [facility] or yarsanism services? Never 02/22/2024 Do you belong to any clubs o r organizations such as adventism groups, unions, fraternal or athletic groups, or [...] Recorded Patient Health Questionnaire-2 Score 0 11/16/2024 [facility] - Occupational [...] a group home (including now)? No 02/09/2024 [place] Depression Scale Answer Date Recorded [place] Depression Scale Total 6 08/08/2024 The thought [...] drink first t casi in the morning (EYE-INSURANCE SALES AGENT) to steady your nerves or to get rid of a hangover? 0 07/16/2024 CAGE Questionnaire Score 0 024 Utilities Answer Date Recorded In the past 12 months has th e [employer], gas, oil, or water company threatened to [...] Angella Castano documented as of this encounter Plan of Treatment Upcoming Encounters Date Type Department Care Team (Late st Contact Info) Description 01/17/2025 7:00 AM EDT Appointment [facility] Endoscopy [address] [place] [address] Cody Barnett MD [address] [place] [address] 02/10/2025 10:00 AM EDT [facility] [address] [place] [address] Rachel Khan PA [address] [place] [address] 02/16/2025 1:20 PM EDT Office Visit [facility] [place] [address], [address] [place] [address] Courtney Torres MD [address] [place] [address] 03/15/2025 3:30 PM EDT Consult [facility] [address], [address] [place] [address] Kendy Sanchez APRN [address] [place] [address] 04/17/2025 2:00 PM EDT Office Visit [facility] Medicine Specialties [address], 2[address] [place] [address] Silverio Tam PA [address] [place] [address] documented as of this [...] documented as of this encounter Care Teams Shearer [employer]ed [employer] Boards Relationship Specialty Start Date End Date Rey Wyatt MD [address] [place] [address] PCP - General 11/16/24 Angela Oleary, RN [facility] Registered Nurse Cardiology 02/17/24 documented as of this encounter
--- OUTSIDE RECORDS SUMMARY | 2025-01-05 09:04 | XMS_ITS | Encounter Summary ---
Author Organization Healthcare Address [address] [place] [address] Care Team Providers Care Postal Mail Carrier Name Role Phone Angela Oleary RN Unavailable Unavailable Rey Wyatt MD Primary Care Provider [phone] Encounter Details Date Type Department Care Team (Latest Contact Info) Description 12/15/2024 Travel Social History Tobacco Use Types Packs/Day [...] week 02/22/2024 How often do you attend [facility] or uatsdin services? Never 02/22/2024 Do you belong to any clubs o r organizations such as denominational groups, unions, fraternal or athletic groups, or [...] Recorded Patient Health Questionnaire-2 Score 0 12/15/2024 [facility] - Occupational Stress [...] in a assisted (including now)? No 02/09/2024 [place] Depression Scale Answer Date Recorded [place] Depression Scale Total 6 08/08/2024 The thought [...] drink first t casi in the morning (EYE-DESIGN ASSEMBLER) to steady your nerves or to get rid of a hangover? 0 07/16/2024 CAGE Questionnaire Score 0 024 Utilities Answer Date Recorded In the past 12 months has th e [employer], gas, oil, or water company threatened to [...] -2 Score 0 12/15/2024 2:22 PM EDT Knigsley Alvarado * Question Answer Date of Assessment [...] Robert Alvarado documented as of this encounter Plan of Treatment Upcoming Encounters Date Type Department Care Team (Late st Contact Info) Description 01/17/2025 7:00 AM EDT Appointment [facility] Endoscopy [address] [place] [address] Cody Barnett MD [address] [place] [address] 02/10/2025 10:00 AM EDT Office Visit [facility] Endocrinology [address] [place] [address] Rachel Khan PA [address] [facility] [address] [place] [address] 02/16/2025 1:20 PM EDT Office Visit [facility] [place] [address], [address] [place] [address] Courtney Torres MD [address] [place] [address] 03/15/2025 3:30 PM EDT Consult [facility] [address], [address] [place] [address] Kendy Sanchez APRN [address] [place] [address] 04/17/2025 2:00 PM EDT Office Visit [facility] Medicine Specialties [address], [address] [place] [address] Silverio Tam PA [address] [place] [address] documented as of this encounter [...] Time PHQ-9 Depression Total Score: 2 12/16/19 25 2:22 PM EDT A fall risk assessment has been complete d for the patient 12/15/2024 2:23 PM EDT A Body Mass Index follow-up plan has been documented for the patient 12/23/2024 4:20 PM EDT documented as of this encounter Care Teams Postal Mail Carrier Relationship Specialty Start Date End Date Rey Wyatt MD [address] [place] [address] PCP - General 11/16/24 Angela Oleary, RN [facility] Registered Nurse Cardiology 02/17/24 documented as of this encounter
--- OUTSIDE RECORDS SUMMARY | 2025-01-05 09:04 | XMS_ITS | Encounter Summary ---
Author Organization Healthcare Address [address] [place] [address] Care Team Providers Care Standards Engineer Name Role Phone Molly Louis MD Primary Care Provider [phone] Angela Oleary RN Unavailable Unavailable Reason for Visit * Reason Onset Date Comments HCN - Patient Message 10/10/2024 Encounter Details Date Type Department Care Team (Late st Contact Info) Description 10/10/2024 Telephone [facility] Medicine Specialties [address], [address] [place] [address] Silverio Tam PA [address] [place] [address] HCN - Patient Message Social History Tobacco Use Types Packs/Day Years [...] How often do you attend chur or amish services? Never 02/22/2024 Do you belong to [...] Recorded Patient Health Questionnaire-2 Score 2 09/06/2024 [facility] - Occupational [...] place to sleep or slept in a fdc (including now)? No 02/09/2024 [place] Depression Scale Answer Date Recorded [place] Depression Scale Total 6 08/08/2024 The thought [...] drink first t casi in the morning (EYE-CANDLE WRAPPING MACHINE OPERATOR) to steady your nerves or [...] encounter Miscellaneous Notes * Telephone Encounter - Stephania Valiente - 10/10/2024 10:20 AM EDT Patient Phone Message Reason for Call: Pt says she cxld her colon/egd due to the prep may cause her to have a flare up. She is asking if she may swallow a pill cam instead. Best contact number and optimal time of day to reach caller: [phone] Note: Please do not reply to this [...] EDT Appointment [facility] Endoscopy [address] [place] [address] Cody Barnett MD [address] [facility] [address] [place] [address] 02/10/2025 10:00 AM EDT [facility] Endocrinology [address] [place] [address] Rachel Khan PA [address] [facility] [address] [place] [address] 02/16/2025 1:20 PM EDT Office Visit [facility] [place] [address] [facility], [address] [place] [address] Courtney Torres MD [address] [facility] [address] [place] [address] 03/15/2025 3:30 PM EDT Consult [facility] [address], 1[address] [place] [address] Kendy Sanchez APRN [address] [place] [address] 04/17/2025 2:00 PM EDT Office Visit [facility] Medicine Specialties [address], [address] [place] [address] Silverio Tam PA [address] [place] [address] documented as of this encounter [...] documented as of this encounter Care Teams Standards Engineer Relationship Specialty Start Date End Date Molly Louis MD [address] [place] [address] PCP - General Family Medicine 02/09/24 11/15/24 Angela Oleary, RN [facility] Registered Nurse Cardiology 02/17/24 documented as of this encounter
--- OUTSIDE RECORDS SUMMARY | 2025-01-05 09:04 | XMS_ITS | Encounter Summary ---
Author Organization Healthcare Address [address] [place] [address] Care Team Providers Care Anthropology Lecturer Name Role Phone Angela Oleary RN Unavailable Unavailable eRy Wyatt MD Primary Care Provider [phone] Encounter Details Date Type Department Care Team (Late st Contact Info) Description 12/16/2024 Results Follow-Up [facility] Endocrinology [address] [place] [address] Abundio Kyle MBBS [address] [phone] Social History Tobacco Use Types Packs/Day Years [...] often do you attend chur ch or latter day services? Never 02/22/2024 Do you belong to any clubs o r organizations such as mormon groups, unions, fraternal or athletic groups, or [...] Recorded Patient Health Questionnaire-2 Score 0 12/15/2024 [facility] ional [facility] - Occupational Stress Questionnaire Answer Date [...] in a retirement (including now)? No 02/09/2024 [place] Depression Scale Answer Date Recorded [place] Depression Scale Total 6 08/08/2024 The thought [...] drink first t casi in the morning (EYE-TAPPER SUPERVISOR) to steady your nerves or to [...] EDT Appointment [facility] Endoscopy [address] [place] [address] Cody Barnett MD [address] [place] [address] 02/10/2025 10:00 AM EDT Office Visit [facility] Endocrinology [address] [place] [address] Rachel Khan PA [address] [facility] [address] [place] [address] 02/16/2025 1:20 PM EDT Office Visit [facility] [place] [address] [facility], [address] [place] [address] Courtney Torres MD [address] [place] [address] 03/15/2025 3:30 PM EDT Consult [facility] [address], [address] [place] [address] Kendy Sanchez, TRISTAN [address] [place] [address] 04/17/2025 2:00 PM EDT Office Visit [facility] Medicine Specialties [address], [address] [place] [address] Silverio Tam PA [address] [place] [address] Scheduled Orders Name Type Priority Associated Diagnoses Orde r Schedule TSH Lab Routine Thyrotoxicosis with Tricia thyroiditis Expected: 01/27/2025 (Approximate), Expires: 12/16/2025 T4, free Lab Routine Thyrotoxicosis with Tricia thyroiditis Expected: 01/27/2025 (Approximate), Expires: 12/16/2025 documented as of this encounter Goals Goal Patient Goal Type Associated Problems Recent Progress Patient-Stated? Author Delayed Delivery Care Plan CPM S22 PP LABOR (OBSTETRICS) No Open Scheduling, Background documented as of this encounter Visit Diagnoses Diagnosis Thyrotoxicosis with [...] documented as of this encounter Care Teams Anthropology Lecturer Relationship Specialty [place] [address] [place] [address] PCP - General 11/16/24 Angela Oleary, RN [facility] Registered Nurse Cardiology 02/17/24 documented as of this encounter
--- OUTSIDE RECORDS SUMMARY | 2025-01-05 09:04 | XMS_ITS | Encounter Summary ---
Author Organization Healthcare Address [address] [place] [address] Care Team Providers Care Photographic Reproduction Technician Name Role Phone Molly Louis MD Primary Care Provider [phone] Angela Oleary RN Unavailable Unavailable Encounter Details Date Type Department Care Team (Latest Contact Info) Description 11/11/2024 Travel Social History Tobacco Use Types Packs/Day [...] often do you attend chur ch or advent services? Never 02/22/2024 Do you belong to any clubs o r organizations such as mormonism groups, unions, fraternal or athletic groups, or [...] Recorded Patient Health Questionnaire-2 Score 2 09/06/2024 [facility] - Occupational Stress Questionnaire Answer [...] in a jail (including now)? No 02/09/2024 [place] Depression Scale Answer Date Recorded [place] Depression Scale Total 6 08/08/2024 The thought [...] drink first t casi in the morning (EYE-SHIPPER RECEIVER) to steady your nerves or to get [...] EDT Appointment [facility] Endoscopy [address] [place] [address] Cody Barnett MD [address] [place] [address] 02/10/2025 10:00 AM EDT [facility] [address] [place] [address] Rachel Khan PA [address] [place] [address] 02/16/2025 1:20 PM EDT Office Visit [facility] [place] [address], [address] [place] [address] Courtney Torres MD [address] [place] [address] 03/15/2025 3:30 PM EDT Consult [facility] [address], 1[address] [place] [address] Kendy Sanchez, MUSEUM TOUR GUIDE [address] [place] [address] 04/17/2025 2:00 PM EDT Office Visit [facility] Medicine Specialties [address], 2[address] [place] [address] Silverio Tam PA [address] [place] [address] documented as of this encounter Goals Goal [...] documented as of this encounter Care Teams Photographic Reproduction Technician Relationship Specialty Start Date End Date Molly Louis MD [address] [phone] PCP - General Family Medicine 02/09/24 11/15/24 Angela Oleary, RN [facility] Registered Nurse Cardiology 02/17/24 documented as of this encounter
--- OUTSIDE RECORDS SUMMARY | 2025-01-05 09:07 | XMS_ITS | Clinical Summary ---
Author Organization [employer] Address [address] [place] [address] Care Team Providers Care Content Strategist Name Role Phone Molly Louis MD Primary Care Provider [phone] Allergies Active Allergy Reactions Criticality Noted Date Comments Amoxicillin-Pot Clavulanate Swelling High 06/24/20 22 Penicillin Swelling High 06/24/2022 Medications ondansetron (ZOFRAN-ODT) 4 MG disintegrating tablet Take by mouth. 05/19/2022 Active Active Problems Problem Noted Date Diagnosed Date Dizziness 09/08/2024 Date of surgery: 08/04/22 S/p Closed reduction, right hand, fifth metacarpal shaft fracture with percutaneous pinning. 09/09/2022 Anxiety 08/04/2022 Depression 08/04/2022 Gastroesophageal reflux disease 08/04/2022 Fracture of fifth metacarpal bone of right hand 08/01/2022 Family History Medical History Relation Name Comments Heart disease Father Kidney disease Father Relation Name Status Comments Father Social History Tobacco Use Types Packs/Day Years Used Date Smoking Tobacco: Every Day Cigarettes 1 10 Smokeless Tobacco: Never Comments:stopped 2 months ag o, currently vapes Alcohol Use Standard Drinks/Week Comments Yes 0 (1 standard drink = 0.6 oz pur e alcohol) social Interpersonal Safety Answer Date Record ed Family or friends hurt you Not on file 08/13 Family or friends insult you Not on file Family or friends threaten you Not on file 0 08/13/2023 Family or friends scream or curse at you Not on file 08/13/2023 Housing Stability Answer Date Recorded Living situation today Not on file Living situation problems Not on file 2023 Family and Community Support Answer Rodrigo e Recorded Help with Day to Day Activities Not on file 08/13/2023 Feeling Lonely or Isolated Not on file 08/13 Educational Attainment Answer Date Guerrero rded Speak language other than Nepalese at home Not on file 08/13/2023 Want help with school or training Not on file 08/13/2023 Depression Answer Date Recorded PHQ-2 Risk Not on file 08/13/2023 Disabilities Answer Date Recorded Difficulty concentrating Not on file 024 Difficulty doing errands alone Not on file 0 08/13/2023 Substance Use Answer Date Recorded Used prescription meds for non-medical reasons N ot on file 08/13/2023 Used illegal drugs past 12 months Not on file 08/13/2023 Comments Unknown Sex and Gender Information Value Date Recorded Sex Assigned at Not on file Legal Sex Female 5:10 PM CDT Gender Identity Not on file Sexual Orientation Not on file Last Filed Vital Signs Vital Sign Reading Time Taken Comments Blood Pressure 107/71 10/04/2024 11:11 PM EDT Pulse 101 10/04/2024 11:11 PM EDT Temperature 37.3 C (99.1 F) 10/04/2024 11:11 PM EDT Respiratory Rate 19 10/04/2024 11:11 PM EDT Oxygen Saturation 100% 10/04/2024 11:11 PM EDT Inhaled Oxygen Concentration - - Weight 61.2 kg (135 lb) 10/04/2024 8:29 PM EDT Height 165.1 cm (5' 5 ) 10/04/2024 8:29 PM EDT Body Mass Index 22.47 10/04/2024 8:29 PM EDT Plan of Treatment Health Maintenance Due Date Last Done Comments Tobacco Cessation Counseling and Screening (12+) 2010 HIV Screening 2013 Hepatitis C Screening 2016 Pneumococcal Vaccine: 0-49 Y ears (1 of 2 - PCV) 2017 Lipid Panel 2018 Pap Smear 2019 DTAP/TDAP/TD VACCINES (3 - Td or Tdap) 02/21/2020, 04/26/2002 COVID-19 VACCINE ( season) 2024 Influenza Vaccine (Season Ended) 2025 Medical Devices Implanted Type Area Harness And Bag Inspector Device Identifier Shelf Expiration Date Model / Serial / Lot K-Wire [id number] - [id number] Implanted:Qty: 1 on 08/04/2022 by Rex Rene MD at [facility] IMPLANTS Right: Hand [employer] [id number] / / Wire K-Wire 1.6mm - [id number] Implanted:Qty: 1 on 08/04/2022 by Rex Rene MD at [facility] IMPLANTS Right: Hand BUCK MED GRP:Schedulicity TECH / / [place] [address] [address] [address] Advance Directives For more information, please contact: [phone] * Full Code (Latest Code Status on File) Date Activated Date Inactivated Comments 08/04/2022 6:03 AM 08/04/2022 11:35 AM Care Teams Content Strategist Relationship Specialty Start Date End Date Molly Louis MD [address] [place] [address] [address] [place] [address] PCP - General 08/22/24
--- OUTSIDE RECORDS SUMMARY | 2025-01-05 09:07 | XMS_ITS | Encounter Summary ---
Author Organization Healthcare Address [address] [place] [address] Care Team Providers Care Hydramatic Specialist Name Role Phone Angela Oleary RN Unavailable Unavailable Rey Wyatt MD Primary Care Provider [phone] Encounter Details Date Type Department Care Team (Late st Contact Info) Description 12/28/2024 Results Follow-Up [facility] Medicine Specialties [address] [place] [address] Estuardo Jon MD [address] [place] [address] Social History Tobacco Use Types [...] often do you attend chur ch or orthodoxy services? Never 02/22/2024 Do you belong to [...] Recorded Patient Health Questionnaire-2 Score 0 12/15/2024 [facility] - Occupational Stress Questionnaire Answer [...] place to sleep or slept in a halfway (including now)? 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 documented in this encounter Plan of Treatment Upcoming Encounters Date Type Department Care Team (Late st Contact Info) Description 01/17/2025 7:00 AM EDT Appointment [facility] [address] [place] [phone] oCdy Barnett MD [address] [place] [address] 02/10/2025 10:00 AM EDT Office Visit [facility] Endocrinology [address] [place] [address] Rachel Khan, PA [address] [facility] [address] [place] [address] 02/16/2025 1:20 PM EDT Office Visit [facility] [place] [address] [facility], [address] [place] [address] Courtney Torres MD [address] [facility] [address] [place] [address] 03/15/2025 3:30 PM EDT Consult [facility] [address] [place] [address] Kendy Sanchez APRN [address] [place] [address] 04/17/2025 2:00 PM EDT Office Visit [facility] Medicine Specialties [address], [address] [place] [address] Silverio Tam, BOOKER [address] [place] [address] documented as of this encounter [...] documented as of this encounter Care Teams Hydramatic Specialist Relationship Specialty [place] [address] [place] [address] [address] [place] [address] PCP - General 11/16/24 Angela Oleary, RN [facility] Registered Nurse Cardiology 02/17/24 documented as of this encounter
--- OUTSIDE RECORDS SUMMARY | 2025-01-05 09:07 | XMS_ITS | Encounter Summary ---
Author Organization Healthcare Address [address] [place] [address] Care Team Providers Care Electric Meter Tester Helper Name Role Phone Pcp, No Primary Care Provider UnavailMolly Newman MD Primary Care Provider [phone] Angela Oleary RN Unavailable Unavailable Rey Wyatt MD Primary Care Provider [phone] Encounter Details Date Type Department Care Team (Late Contact Info) Description 01/22/2024 Orders Only External Location [address] [place] [address] Provider, External Social History Tobacco Use Types Packs/Day Years Used Date Smoking Tobacco: Never Assessed Comments Unknown Sex and Gender Information Value Date Recorded Sex Assigned at Not on file Legal Sex Female 7:36 PM EDT Gender Identity Not on file Sexual Orientation Not on file documented as of this encounter Functional Status * Calculated C-SSRS Risk Score (Lifetime/Recent) Answer Date of Assessment Author No Risk Indicated 01/23/2024 2:42 PM EDT Parmjit Rico RN * Question Answer Date of Assessment Author 1. Wish to be (Past 1 Month) No 024 2:42 PM EDT Parmjit Rico, JANELL 2. Non-Specific Active Suici keron Thoughts (Past 1 Month) No 01/23/2024 2:42 PM EDT Parmjit Rico RN 6. Suicidal Behavior (Lifetime) No 2:42 PM EDT Parmjit Rico RN documented as of this encounter Plan of Treatment Upcoming Encounters Date Type Department Care Team (Late Contact Info) Description 01/17/2025 7:00 AM EDT Appointment [facility] [address] [place] [address] Cody Barnett MD [address] [place] [address] 02/10/2025 10:00 AM EDT Office Visit [facility] Endocrinology [address] [place] [phone] Rachel Khan PA [address] [place] [address] 02/16/2025 1:20 PM EDT Office Visit [facility] [place] [address], [address] [place] [address] Courtney Torres MD [address] [place] [address] 03/15/2025 3:30 PM EDT Consult [facility] [address] [place] [address] Kendy Sanchez APRN [address] [place] [address] 04/17/2025 2:00 PM EDT Office Visit [facility] Medicine Specialties [address], [address] [place] [address] Silverio Tam PA [address] [place] [address] documented as of this encounter Procedures Procedure Name Priority Date/Time Associated Diagnosis Comments US OUTSIDE IMAGES 01/22/2024 4:29 PM EDT documented in this encounter Results * US OUTSIDE IMAGES (01/22/2024 4:29 PM EDT) Anatomical Region Laterality Modality Ultrasound 01/22/2024 4:29 PM EDT us External Provider IMG US PROCEDURES Final Result documented in this encounter Visit Diagnoses Not on filedocumented in this encounter Additional Health Concerns Infection Onset Date Last Indicated Resolved Time Gastrointestinal Rule-Out 02/08/2024 02/08/2024 3:37 PM EDT C. difficile Rule-Out 02/08/2024 02/08/20242023 3:37 PM EDT COVID-19 Rule-Out 03/11/2024 03/11/2024 03/12/2024 3:23 AM EDT Gastrointestinal Rule-Out 03/11/2024 03/12/2024 7:24 PM EDT Respiratory Rule-Out 05/25/2024 05/25/2024 024 4:54 AM EDT Rhinovirus Comment:Patient no longer sick 05/25/2024 05/25/2024 11:39 AM EST Gastrointestinal Rule-Out 11/20/2024 11/20/2024 9:53 PM EDT documented as of this encounter Care Teams Electric Meter Tester Helper Relationship Specialty Start Date End Date Pcp, No [address] [place] [address] PCP - General Family Medicine 01/22/24 02/08/24 Molly Louis MD [address] [place] [address] PCP - General Family Medicine 02/09/24 11/15/24 Rey Wyatt MD [address] [facility] [address] [place] [address] PCP - General 11/16/24 Angela Oleary, RN [facility] Registered Nurse Cardiology 02/17/24 documented as of this encounter
--- OUTSIDE RECORDS SUMMARY | 2025-01-05 09:07 | XMS_ITS | Referral Summary ---
Author Organization [employer] Address [address] [place] [address] Care Team Providers Care Gaming Commissioner Name Role Phone Molly Louis MD Primary Care Provider [phone] Allergies Active Allergy Reactions Criticality Noted Date [...] fifth metacarpal bone of right hand 08/01/2022 Social History Tobacco Use Types Packs/Day Years [...] Date Guerrero rded Speak language other than Greenlandic at home Not on file 08/13/2023 Want [...] 10/04/2024 8:29 PM EDT Plan of Treatment Not on file Medical Devices Implanted Type Area Cost Manager Device Identifier Shelf Expiration Date Model / Serial / Lot K-Wire [id number] - [id number] Implanted:Qty: 1 on 08/04/2022 by Rex Rene MD at [facility] IMPLANTS Right: Hand ANNIA:[employer] [id number] / / Wire K-Wire 1.6mm - [id number] Implanted:Qty: 1 on 08/04/2022 by Rex Rene MD at [facility] IMPLANTS Right: Hand [employer] GRP:[employer] TECH [phone] / / Insurance [place] [address] Advance Directives For more information, please contact: [phone] * Full Code (Latest Code Status on File) Date Activated Date Inactivated Comments 08/04/2022 6:03 AM 08/04/2022 11:35 AM Care Teams Gaming Commissioner Relationship Specialty Start Date End Date Molly Louis MD [address] [place] [address] [address] [place] [address] PCP - General 08/22/24
--- OUTSIDE RECORDS SUMMARY | 2025-01-05 09:07 | XMS_ITS | Encounter Summary ---
Author Organization Healthcare Address [address] [place] [address] Care Team Providers Care Accounting Lecturer Name Role Phone Molly Louis MD Primary Care Provider [phone] Angela Oleary RN Unavailable Unavailable Rey Wyatt MD Primary Care Provider [phone] Reason for Visit * Reason Onset Date Comments Med Refill 03/03/2024 Encounter Details Date Type Department Care Team ([facility] Contact Info) Description 03/03/2024 Refill Medical Office Building Obstetrics and Gynecology [address] [facility], [address] [place] [address] MidkiffEarle Villagomez MD [address] [facility] [address] [place] [address] Supervision of high risk in second trimester Social History Tobacco Use Types Packs/Day Years [...] How often do you attend chur or moravian services? Never 02/22/2024 Do you belong to any clubs o r organizations such as quaker groups, unions, fraternal or athletic groups, or [...] Recorded Patient Health Questionnaire-2 Score 0 02/17/2024 [facility]at ional Health - [...] in a fdc (including now)? No 02/09/2024 [place] Depression Scale Answer Date Recorded [place] Depression Scale Total 8 02/22/2024 The thought of harming myself has occurred to me . Never 02/22/2024 Utilities Answer Date Recorded In the past [...] encounter Miscellaneous Notes * Telephone Encounter - Lisa Stearns - 03/10/2024 9:41 AM EDT Patient requesting to speak with a nurse- see [facility] for details about symptoms she is experiencing. * Telephone Encounter - Luh Keenan RN - 03/04/2024 1:56 PM EDT Patient has refills on file. Needs to call pharmacy. Luh Keenan, RN documented in this encounter Plan of Treatment Upcoming Encounters Date Type Department Care Team (Late st Contact Info) Description 01/17/2025 7:00 AM EDT Appointment [facility] Endoscopy [address] [place] [address] Cody Barnett MD [address] [place] [address] 02/10/2025 10:00 AM EDT Office Visit [facility] Endocr[facility]ology [address] [place] [phone] Rachel Khan PA [address] [facility] [address] [place] [address] 02/16/2025 1:20 PM EDT Office Visit [facility] [place] [address] [facility], [address] [place] [address] Courtney Torres MD [address] [facility] [address] [place] [address] 03/15/2025 3:30 PM EDT Consult [facility] [address], [address] [place] [address] Kendy Sanchez, TRISTAN [address] [place] [address] 04/17/2025 2:00 PM EDT Office Visit [facility] Medicine Specialties [address], [address] [place] [address] Silverio Tam PA [address] [place] [address] documented as of this encounter Goals Goal Patient Goal Type Associated Problems Recent Progress Patient-Stated? Author Delayed Delivery Care Plan CPM S22 PP LABOR (OBSTETRICS) No Open Scheduling, Background documented as of this encounter Visit Diagnoses Diagnosis Supervision of high risk in second trimester documented in this encounter Additional Health Concerns Active Problems Noted Date Diagnosed Date CPM S22 PP LABOR (OBSTETRICS) 02/24/2024 Infection Onset Date Last Indicated Resolved Time COVID-19 Rule-Out 03/11/2024 03/11/2024 03/12/2024 3:23 AM EDT Gastrointestinal Rule-Out 03/11/2024 03/12/2024 7:24 PM EDT Respiratory Rule-Out 05/25/2024 05/25/2024 024 4:54 AM EDT Rhinovirus Comment:Patient no longer sick 05/25/2024 05/25/2024 11:39 AM EST Gastrointestinal Rule-Out 11/20/2024 11/20/2024 9:53 PM EDT Assessment Noted Time A fall risk assessment has been complete d for the patient 02/17/2024 12:08 PM EDT A Body Mass Index follow-up plan has been documented for the patient 02/24/2024 9:41 PM EDT documented as of this encounter Care Teams Accounting Lecturer Relationship Specialty Start Date End Date Molly Louis MD [address] [place] [id number] PCP - General Family Medicine 02/09/24 11/15/24 Rey Wyatt MD [address] [place] [address] PCP - General 11/16/24 Angela Oleary, RN [facility] Registered Nurse Cardiology 02/17/24 documented as of this encounter
--- OUTSIDE RECORDS SUMMARY | 2025-01-05 09:07 | XMS_ITS | Encounter Summary ---
Author Organization [employer] Address [address] [place] [address] Care Team Providers Care Order Picker Name Role Phone Molly Louis MD Primary Care Provider [phone] Encounter Details Date Type Department Care Team (Late st Contact Info) Description 08/22/2024 Outside Orders [facility] Admitting [address] [place] [address] Silverio Tam, BOOKER [address] [place] [id number] Esophageal reflux (Primary Dx) Social History Tobacco Use Types [...] Date Guerrero rded Speak language other than Iraqi at home Not on file 08/13/2023 Want [...] as of this encounter Plan of Treatment Not on file documented as of this encounter Results * Helicobacter pylori Ag, Fecal by EIA(SENDOUT) (08/22/2024 11:35 AM EST) Helicobacter pylori Ag, by EIA Negative Negative 08/23/2024 10:57 PM EST [facility] Comment: Performed By: [facility] [address] [place] [address] Merchandising Assistant: Wilber Pardo MD, PhD CLIA Number: [id number] Stool 08/22/2024 11:3 5 AM EST 08/22/2024 11:36 AM EST [facility] - GENERAL ORDERAB LES Final Result Performing Organization Address City/State/[facility] Co de Phone Number [facility] [address] [place] [address], [facility] [phone] * Calprotectin, Fecal by Immunoassay(SENDOUT) (08/22/2024 11:35 AM EST) Calprotectin, Fecal 26 <=49 ug/g 08/26/2024 8:14 AM EST [facility] Comment: REFERENCE INTERVAL: Calprotectin, Fecal by Immunoassay Less than 50 ug/g........Normal 50-120 ug/g..............Borderline elevated, test should be re-evaluated in 4-6 weeks. 121 ug/g or greater......Elevated Performed By: [facility] [address] [place] [address] Merchandising Assistant: Wilber Pardo MD, PhD CLIA Number: [id number] Stool 08/22/2024 11:3 5 AM EST 08/22/2024 11:36 AM EST us [facility] - GENERAL ORDERAB LES Final Result [facility] [address] [place] [address], [facility] [phone] documented in this encounter Visit Diagnoses Diagnosis Esophageal reflux- Primary documented in this encounter Care Teams Order Picker Relationship Specialty Start Date End Date Molly Louis MD [address] [place] [address] PCP - General 08/22/24 documented as of this encounter
--- OUTSIDE RECORDS SUMMARY | 2025-01-05 09:07 | XMS_ITS | Encounter Summary ---
Author Organization Healthcare Address [address] [place] [address] Care Team Providers Care Liquified Natural Gas Technician Name Role Phone Angela Oleary RN Unavailable Unavailable Rey Wyatt MD Primary Care Provider [phone] Encounter Details Date Type Department Care Team (Late st Contact Info) Description 12/28/2024 Orders Only [facility] Medicine Specialties [address] [place] [address] Keya Minor RN [facility] Diarrhea, unspecified type Social History Tobacco Use Types Packs/Day Years [...] often do you attend chur ch or taoism services? Never 02/22/2024 Do you belong to [...] Recorded Patient Health Questionnaire-2 Score 0 12/15/2024 [facility] - Occupational [...] in a fpc (including now)? 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 [address] Cody Barnett MD [address] [place] [address] 02/10/2025 10:00 AM EDT Office Visit [facility] Endocrinology [address] [place] [address] Rachel Khan PA [address] [place] [address] 02/16/2025 1:20 PM EDT Office Visit [facility] [place] [address], [address] [place] [address] Courtney Torres MD [address] [place] [address] 03/15/2025 3:30 PM EDT Consult [facility] [address] [place] [address] Kendy Sanchez APRN [address] [place] [address] 04/17/2025 2:00 PM EDT Office Visit [facility] Medicine Specialties [address], [address] [place] [address] Silverio Tam PA [address] [place] [address] documented as of this encounter Goals Goal Patient Goal Type Associated Problems Recent Progress Patient-Stated? Author Delayed Delivery Care Plan CPM S22 PP LABOR (OBSTETRICS) No Open Scheduling, Background documented as of this encounter Procedures Procedure Name Priority Date/Time Associated Diagnosis Comments XR ABDOMEN 1 VIEW Routine 12/28/2024 9:4 0 AM EDT Diarrhea, unspecified type documented in this encounter Results * XR Abdomen 1 View (12/28/2024 9:40 AM EDT) Anatomical Region Laterality Modality Body Digital Radiogra phy Estuardo Jon MD IMG XR PROCEDURES Final Result documented in this encounter Visit Diagnoses Diagnosis Diarrhea, unspecified type documented in this encounter Additional Health Concerns [...] documented as of this encounter Care Teams Liquified Natural Gas Technician Relationship Specialty Start Date End Date Rey Wyatt MD [address] [place] [address] PCP - General 11/16/24 Angela Oleary, RN [facility] Registered Nurse Cardiology 02/17/24 documented as of this encounter
--- OUTSIDE RECORDS SUMMARY | 2025-01-05 09:07 | XMS_ITS | Encounter Summary ---
Author Organization [facility] Address [address] [place] [address] Care Team Providers Care Corner Brace Block Machine Operator Name Role Phone Angela Oleary RN Unavailable Unavailable Rey Wyatt MD Primary Care Provider [phone] Reason for Referral * Imaging (Routine) - Pending Review Specialty Diagnoses / Procedures Referred By Mili joe Referred To Contact Gastroenterology Diagnoses Abdominal pain, epigastric Diarrhea, unspecified type Weight loss Hematochezia Procedures Capsule Endoscopy Silverio Tam PA [address] [facility] [address] [place] [address] Phone: tel: fax: Referral ID Status Reason Start Date Expiration Date Visits Requested Visits Authorized [id number] Pending Review Specialty Services Required 12/28/2024 06/29/2026 1 1 Encounter Details Date Type Department Care Team (Late st Contact Info) Description 12/28/2024 Orders Only [facility] Medicine Specialties [address] [place] [address] Silverio Tam PA [address] [facility] [address] [place] [address] Abdominal pain, epigastric (Primary Dx); Diarrhea, unspecified type; Weight loss; Hematochezia Social History Tobacco Use Types Packs/Day Years [...] any clubs o r organizations such as sikh groups, unions, fraternal or athletic groups, or [...] Recorded Patient Health Questionnaire-2 Score 0 12/15/2024 [facility] Answer [...] in a alf (including now)? 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 0 07/16/2024 CAGE Questionnaire Score 0 024 Utilities Answer Date Recorded In the past 12 months has th e E[employer]ia App, gas, oil, or water [employer] threatened to shut off services in your [...] EDT Appointment [facility] Endoscopy [address] [place] [address] Cody Barnett MD [address] [place] [address] 02/10/2025 10:00 AM EDT Office Visit [facility] [address] [place] [phone] Rachel Khan PA [address] [facility] [address] [place] [address] 02/16/2025 1:20 PM EDT Office Visit [facility] [place] [address] [facility], [address] [place] [address] Courtney Torres MD [address] [place] [address] 03/15/2025 3:30 PM EDT Consult [place] [facility] [address] [place] [address] Kendy Sanchez, PORT SURVEYOR [address] [place] [address] 04/17/2025 2:00 PM EDT Office Visit [facility] Medicine Specialties [address] [place] [address] Silverio Tam PA [address] [place] [address] Scheduled Orders Name Type Priority Associated Diagnoses Orde r Schedule Capsule Endoscopy GI Routine Abdominal pain, epigastric Diarrhea, unspecified type Weight loss Hematochezia Expected: 12/28/2024, Expires: 07/01/2026 documented as of this encounter Goals Goal Patient Goal Type Associated Problems Recent Progress Patient-Stated? Author Delayed Delivery Care Plan CPM S22 PP LABOR (OBSTETRICS) No Open Scheduling, Background documented as of this encounter Visit Diagnoses Diagnosis Abdominal pain, epigastric- Primary Diarrhea, unspecified type Weight loss Loss of weight Hematochezia Blood in stool documented in this encounter Additional Health Concerns [...] documented as of this encounter Care Teams Corner Brace Block Machine Operator Relationship Specialty Start Date End Date Rey Wyatt MD [address] [place] [address] PCP - General 11/16/24 Angela Oleary, RN [facility] Registered Nurse Cardiology 02/17/24 documented as of this encounter
--- OUTSIDE RECORDS SUMMARY | 2025-01-05 09:07 | XMS_ITS | Encounter Summary ---
Author Organization Healthcare Address [address] [place] [address] Care Team Providers Care Dispatcher Service Name Role Phone Molly Louis MD Primary Care Provider [phone] Angela Oleary RN Unavailable Unavailable Rey Wyatt MD Primary Care Provider [phone] Reason for Visit * Reason Onset Date Comments Med Refill 07/19/2024 Encounter Details Date Type Department Care Team (Late st Contact Info) Description 07/19/2024 Refill [facility] [address], [address] [place] [address] Paris Marion MD [address] [place] [address] Social History Tobacco Use Types Packs/Day Years [...] any clubs o r organizations such as sabianist groups, unions, fraternal or athletic groups, or [...] Date Recorded Patient Health Questionnaire-2 Score 0 06/22/2024 [facility] [...] place to sleep or slept in a [place] [facility] [place] facility (including now)? No 02/09/2024 [place] Depression Scale Answer Date Recorded [place] Depression Scale Total 8 02/22/2024 The thought of harming myself has occurred to me . 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 [id number] Cody Barnett MD [address] [place] [address] 02/10/2025 10:00 AM EDT Office Visit [facility] Endocr[facility]ology [address] [place] [address] Rachel Khan PA [address] [place] [address] 02/16/2025 1:20 PM EDT Office Visit [facility] [place] [address], [address] [place] [address] Courtney Torres MD [address] [place] [address] 03/15/2025 3:30 PM EDT Consult [facility] [address] [place] [address] Kendy Sanchez APRN [address] [place] [address] 04/17/2025 2:00 PM EDT Office Visit [facility] [address] [place] [address] Silverio Tam PA [address] [place] [address] documented as of this encounter [...] Noted Time PHQ-9 Depression Total Score: 0 06/22/20 12:48 PM EST A fall risk assessment has been complete d for the patient 06/22/2024 12:48 PM EST A Body Mass Index follow-up plan has been documented for the patient 07/18/2024 10:59 AM EST documented as of this encounter Care Teams Dispatcher Service Relationship Specialty Start Date End Date Molly Louis MD [address] [place] [id number] PCP - General Family Medicine 02/09/24 11/15/24 Rey Wyatt MD [address] [place] [address] PCP - General 11/16/24 Angela Oleary, RN [facility] Registered Nurse Cardiology 02/17/24 documented as of this encounter
--- OUTSIDE RECORDS SUMMARY | 2025-01-05 09:07 | XMS_ITS | Clinical Summary ---
Author Organization [facility] Address [address] [place] [address] Care Team Providers Care Retail Marketing Specialist Name Role Phone Angela Oleary RN Unavailable Unavailable Rey Wyatt MD Primary Care Provider Allergies Active Allergy Reactions Criticality Noted Date Comments Amoxicillin-Pot Clavulanate Other - please document in the comment field,Rash,Swelling High 06/24/2022 Betamethasone Other - please document in the comment field Medium 03/27/2024 Patient states she has not had a reaction to this. Cinnamon Other - please document in the comment field High 01/22/2024 Penicillin G Swelling High 06/24/2022 Penicillins Other - please document in the comment field Low 11/16/2024 Medications potassium & sodium phosphates (Phos-NaK) 280-160-250 MG packet Take 1 packet by mouth 1 (one) time each day. 30 packet 1 03/16/20 24 Active Additional Information Patient not taking.Reported on 12/15/2024 Vit-Fe Fumarate-FA ( Vitamins) 28-0.8 MG tablet Take 1 tablet by mouth 1 (one) time each day. 30 tablet 11 03/17/20 24 025 Active Additional Information Patient not taking.Reported on 12/15/2024 sodium chloride ([place] Nasal [place]) 0.65 % nasal spray Administer 1 spray into each nostril if needed for congestion. 30 mL 12 04/12/20 24 Active Additional Information Patient not taking.Reported on 12/15/2024 Blood Glucose Monitoring Suppl (OneTouch Verio Reflect) w/Device kit 04/14/20 24 Active OneTouch Verio test strip 1 each by Other route if needed. 04/14/20 24 Active Lancets (OneTouch Delica Plus [id number]) [facility] 04/14/20 24 Active ibuprofen 600 MG tablet Take 1 tablet (600 mg) by mouth every 6 (six) hours if needed for mild pain. 30 tablet 1 07/18/20 24 Active Additional Information Patient not taking.Reported on 12/15/2024 senna-docusate (Codi-Colace) 8.6-50 MG tablet Take 1 tablet by mouth 1 (one) time each day. 30 tablet 1 07/18/20 24 Active Additional Information Patient not taking.Reported on 12/15/2024 acetaminophen (Tylenol) 325 MG capsule Take 2 capsules (650 mg) by mouth every 6 (six) hours if needed for mild pain. 30 capsule 1 07/18/20 24 Active Additional Information Patient not taking.Reported on 12/15/2024 ondansetron (Zofran) 4 MG tablet Take 1 tablet (4 mg) by mouth every 8 (eight) hours if needed for nausea or vomiting. 3 tablet 5 07/18/20 24 Active Additional Information Patient not taking.Reported on 12/15/2024 busPIRone (Buspar) 5 MG tablet Take 1 tablet (5 mg) by mouth every night. Takes at 8PM 30 tablet 08/16/19 25 Active famotidine (Pepcid) 20 MG tablet Take 1 tablet (20 mg) by mouth 2 (two) times a day. 60 tablet 11 08/16/19 25 Active Additional Information Patient not taking.Reported on 12/15/2024 bisacodyl (Bisacodyl EC) 5 MG EC tablet Take all 4 tablets at 4 PM on day before colonoscopy 4 tablet 09/13/19 25 Active Additional Information Patient not taking.Reported on 12/15/2024 polyethylene glycol (GoLYTELY) 236 g solution SEE PHARMACY NOTES FOR PATIENT LABEL INSTRUCTIONS- for Colonoscopy prep protocol 4000 mL 09/13/19 25 Active Additional Information Patient not taking.Reported on 12/15/2024 cholecalciferol (Vitamin D-3) 50 MCG (2000 UT) capsule 10/26/19 25 Active Ventolin HFA 108 (90 Base) MCG/ACT inhaler 10/06/19 25 Active methIMAzole (Tapazole) 10 MG tablet Take 1 tablet by mouth daily. 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 30 tablet 3 11/17/19 25 Active cefdinir (Omnicef) 300 MG capsule take one capsule by mouth every twelve hours for 10 days 12/09/19 Active fluticasone (Flonase) 50 MCG/ACT nasal spray Administer 1 spray into each nostril daily. 12/09/19 25 Active predniSONE (Deltasone) 10 MG tablet Take 4 tablets by mouth daily for 5 days, THEN 3 tablets daily for 5 days, THEN 2 tablets daily for 5 days, THEN 1 tablet daily for 5 days, THEN 0.5 tablets daily for 5 days. 53 tablet 12/17/19 25 025 Active ondansetron ODT (Zofran-ODT) 4 MG disintegrating tablet Dissolve 2 tablets on the tongue every 8 hours as needed for nausea or vomiting. 20 tablet 5 12/31/19 25 Active ondansetron ODT (Zofran-ODT) 4 MG disintegrating tablet Take 1 tablet (4 mg) by mouth every 8 (eight) hours if needed for nausea or vomiting. 20 tablet 2 03/16/20 24 025 Discontin ued(Reord er) predniSONE (Deltasone) 10 MG tablet Take 4 tablets by mouth daily for 5 days, THEN 3 tablets daily for 5 days, THEN 2 tablets daily for 5 days, THEN 1 tablet daily for 5 days, THEN 0.5 tablets daily for 5 days. 53 tablet 11/15/19 25 025 Discontin ued(Reord er) Hospital, Clinic, or Other Facility Administered Medication Ordered Dose Route Frequency Start Date End Date Status sodium chloride 0.9 % infusion 250 mLIndications:Supervision of high risk in second trimester 250 mL IV Once 03/30/2024 Active Active Problems Problem Noted Date Diagnosed Date Palpitations 08/17/2024 and not yet delivered in [facility] 07/16/2024 POTS (postural orthostatic tachycardia syndrome) 04/29/2024 Elevated brain natriuretic peptide (BNP) level 0 04/12/2024 Hypertension affecting 04/12/2024 Hypokalemia 04/12/2024 Left ear impacted cerumen 04/12/2024 Severe malnutrition 03/14/2024 Overview (03/14/2024): ~16% wt loss x 4m; weight loss in setting of POTS, decreased oral intake, Gastroenteritis 03/11/2024 Postural orthostatic tachycardia syndrome (POTS) 02/18/2024 Pre-syncope 02/08/2024 14 weeks gestation of 02/08/2024 Chest pain 02/05/2024 Abnormal reflex 10/16/2023 Insomnia, unspecified 09/22/2023 Lumbago with sciatica, right side 09/22/2023 Diarrhea 05/19/2023 Hematochezia 05/19/2023 Melena 05/19/2023 Nausea 05/19/2023 Genital herpes simplex 02/04/2023 Constipation 01/29/2023 Mixed stress and urge urinary incontinence 12/10 Gallstone 09/18/2022 Gilbert's syndrome 09/18/2022 Depression 08/04/2022 Anxiety 08/04/2022 Gastroesophageal reflux disease 08/04/2022 Encounters Date Type Department Care Team Description 12/30/2024 [facility] Only [facility] [address] [place] [address] Silverio Tam PA 12/28/2024 Orders Only [facility] [address] [place] [address] Silverio Tam PA Abdominal pain, epigastric (Primary Dx); Diarrhea, unspecified type; Weight loss; Hematochezia 12/28/2024 Results [facility]Up [facility] [address], [address] [place] [address] Estuardo Jon MD 12/28/2024 Orders Only [facility] [address] [place] [phone] Keya Minor RN Diarrhea, unspecified type 12/20/2024 Results Follow-Up [facility] Medicine Specialties [address], [address] [place] [address] Silverio Tam PA 12/16/2024 Results Follow-Up [facility] [address] [place] [phone] Abundio Kyle MBBS 12/15/2024 2:30 PM EDT Office Visit [facility] Specialties [address], [address] [place] [address] Silverio Tam PA Weight loss (Primary Dx); Abdominal pain, epigastric; Diarrhea, unspecified type; Postural orthostatic tachycardia syndrome (POTS); Hematochezia; Elevated fecal calprotectin; Urticaria; History of anesthesia reaction; Gastroesophageal reflux disease, unspecified whether esophagitis present; Gilbert's syndrome; Nausea and vomiting, unspecified vomiting type; BMI 23.0-23.9, adult 12/15/2024 Travel 12/09/2024 Orders Only [facility] Medicine Specialties [address] [place] [address] Silverio Tam PA 12/08/2024 Travel 12/07/2024 7:03 AM EDT - 12/07/2024 11:59 PM EDT Hospital Encounter [facility] [address] [place] [address] Estuardo Jon MD Diarrhea, unspecified type (Primary Dx); Hematochezia; Abdominal pain, epigastric Discharge Disposition: Home or Self Care 12/07/2024 Travel 11/20/2024 9:18 PM EDT - 11/20/2024 11:32 PM EDT Emergency [facility] [address] [place] [phone] Leo Souza MD Palpitations (Primary Dx) Discharge Disposition: Home or Self Care 11/20/2024 Travel 11/16/2024 3:15 PM EDT Office Visit [facility] [place] [address], [address] [place] [address] Ashanti Camarena MD 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/16/2024 Travel 11/16/2024 Telephone [facility] [address] [place] [address] Kendy Sanchez, TRISTAN 11/14/2024 Orders Only [facility] End[facility] [address] [place] [address] Abundio Kyle MBBS Thyrotoxicosis with Tricia thyroiditis (Primary Dx) 11/13/2024 Travel 11/11/2024 8:40 AM EDT Office Visit [facility] [address] [place] [address] (1), Roland Wooten Fellow Abundio Kyle MBBS Thyrotoxicosis with Tricia thyroiditis (Primary Dx); Hyperthyroidism 11/11/2024 Travel 10/21/2024 Telephone [facility] [place] [address] [place] [address] None, None 10/21/2024 Telephone [facility] [address] [place] [address] Roland Wooten MD 10/20/2024 Travel 10/17/2024 Orders Only [facility] Medicine Specialties [address] [place] [phone] Silverio Tam PA Hematochezia (Primary Dx); Abdominal pain, epigastric 10/10/2024 Telephone [facility] Medicine [facility] [address] [place] [phone] Silverio Tam PA HCN - Patient Message from Last 3 Months Immunizations Immunization Administration Dates Next Due DTaP, Unspecified 04/26/2002 HPV, Quadrivalent 05/29/2011 Hep A, ped/adol, 2 dose 11/21/2010,02/20/2010 IPV 04/26/2002 Influenza, injectable, quadr ivalent, preservative free 04/29/2023 MMR 07/18/2024(Deferred: Patient Refused),04/26/2002 Tdap 02/20/2010 Varicella 07/06/2001 Family History Medical History Relation Name Comments Autoimmune disease Brother 1 Tristan cradang Crohn's disease Brother 1 Tristan craft Immunodeficiency Brother 1 Tristan craft Liver disease Brother 2 Scott Asthma Child Heart attack Father Sahil reynoso Heart failure Father Sahil reynoso Hypertension Father Sahil reynoso Stroke Father Sahil reynoso Cancer Maternal Grandmother Melania sheridan Abnormal EKG Mother Crystal craft Autoimmune disease Mother Crystal craft Clotting disorder Mother Crystal craft Depression Mother Crystal craft Immunodeficiency Mother Crystal craft Thyroid disease Mother Crystal craft Thyroid disease Mother's Sister Ashanti Anesthesia problems Neg Hx Malig Hyperthermia Neg Hx Relation Name Status Comments Brother 1 Tristan fagan Brother 2 Scott Alive Child Alive Father Sahil reynoso Alive Maternal Grandmother Melania sheridan Mother Avril fagan Mother's Sister Ashanti Alive Social History Tobacco Use Types Packs/Day Years [...] often do you attend chur ch or yarsanism services? Never 02/22/2024 Do you belong to any clubs o r organizations such as yazidi groups, unions, fraternal or athletic groups, or [...] Recorded Patient Health Questionnaire-2 Score 0 12/15/2024 [facility] - Occupational Stress [...] in a penitentiary (including now)? 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 [address] Cody Barentt MD [address] [place] [address] 02/10/2025 10:00 AM EDT Office Visit [facility] [address] [place] [address] Rachel Khan PA [address] [facility] [address] [place] [address] 02/16/2025 1:20 PM EDT Office Visit [facility] [place] [address], [address] [place] [address] Courtney Torres MD [address] [place] [address] 03/15/2025 3:30 PM EDT Consult [facility] [address] [place] [address] Kendy Sanchez APRN [address] [place] [address] 04/17/2025 2:00 PM EDT Office Visit [facility] [address] [place] [address] Silverio Tam PA [address] [place] [address] Health Maintenance Due Date Last Done Comments [facility]-Infant/Child/Adol SDOH Screenings 1998 [facility]-IPV Vaccines (2 of 3 - 4-dose series) 05/24/2002 04/26/2002 [facility]-Varicella Vaccines (2 of 2 - 2-dose childhood series) 05/24/2002 07/06/2001 HPV Vaccines (2 - 2-dose series) 11/27/2011 05/29/2011 [facility]-Hepatitis B Vaccines (1 of 3 - 19+ 3-dose series) 2017 [facility]-Zoster Vaccines (1 of 2) 2017 07/06/2001 [facility]-Pap Smear 2019 [facility]-DTaP,Tdap,and Td Vaccines (3 - Td or Tdap) 02/21/2020 02/20/2010, 04/26/2002 [id number] Vaccine (2 - Jasmine risk series) 03/21/2021 02/21/2021 [facility]- SDOH Screenings 08/11/2024 [facility]-Adult SDOH Screenings 08/11/2024 02/09/2024 [facility]-Influenza Vaccine (Season Ended) 2025 04/29/2023 [facility]-Depression Screening 12/15/2025 025, 12/15/2024, 08/08/2024 [facility]-Hepatitis A Vaccines Completed 011, 02/20/2010 [facility]-Hepatitis C Screening Completed 02/07/2024 [facility]-HIV Screening Completed 04/18/2024, 02/07/2024 [facility]-HIB Vaccines Aged Out No longer e ligible based on patient's age to complete this topic [facility]-Pneumococcal Vaccine: Pediatrics (0 to 5 Years) and At-Risk Patients (6 to 49 Years) Aged Out No longer eligible b ased on patient's age to complete this topic [facility]-Rotavirus Vaccines Aged Out No lo nger eligible based on patient's age to complete this topic Goals Goal Patient Goal Type Associated Problems Recent Progress Patient-Stated? Author Delayed Delivery Care Plan CPM S22 PP LABOR (OBSTETRICS) No Open Scheduling, Background Procedures Procedure Name Priority Date/Time Associated Diagnosis Comments XR ABDOMEN 1 VIEW Routine 12/28/2024 9:4 0 AM EDT Diarrhea, unspecified type TSH Routine 12/15/2024 3:29 PM EDT Thyrotoxicosis with Tricia thyroiditis FREE T4, PLASMA Routine 12/15/2024 3:29 PM EDT Thyrotoxicosis with Tricia thyroiditis BRAYAN-HOLGUIN VIRUS ANTIBODY TO VIRAL CAPSID ANTIGEN, IGM(SO Routine 12/15/2024 3:29 PM EDT Weight loss Abdominal pain, epigastric Diarrhea, unspecified type BRAYAN-HOLGUIN VIRUS ANTIBODY TO VIRAL CAPSID ANTIGEN, IGG (SO Routine 12/15/2024 3:29 PM EDT Weight loss Abdominal pain, epigastric Diarrhea, unspecified type PROTHROMBIN TIME(PT) / INR Routine 12/15/2024 3:29 PM EDT Weight loss Abdominal pain, epigastric Diarrhea, unspecified type COMPREHENSIVE METABOLIC PANEL, PLASMA Routine 12/15/2024 3:29 PM EDT Weight loss Abdominal pain, epigastric Diarrhea, unspecified type CBC WITH AUTO DIFFERENTIAL Routine 12/15/2024 3:29 PM EDT Weight loss Abdominal pain, epigastric Diarrhea, unspecified type T3 Routine 12/15/2024 3:29 PM EDT Weight loss Abdominal pain, epigastric Diarrhea, unspecified type CYTOMEGALOVIRUS (CMV) QUANTITATIVE PCR Routine 12/15/2024 3:29 PM EDT Weight loss Abdominal pain, epigastric Diarrhea, unspecified type PATENCY CAPSULE Routine 12/07/2024 7:03 AM EDT Hematochezia Abdominal pain, epigastric XR CHEST 1 VIEW STAT 11/20/2024 9:43 PM EDT CBC W/O DIFFERENTIAL STAT 11/20/2024 9:17 PM EDT BLOOD GAS PANEL, VENOUS STAT 11/21/19 9:17 PM EDT FREE T4, PLASMA STAT 11/20/2024 9:17 PM EDT TSH STAT 11/20/2024 9:17 PM EDT TROPONIN T, HIGH SENSITIVITY, 0 HOUR, PLASMA, REFLEX TO 2 HOUR STAT 11/20/2024 9:17 PM EDT PHOSPHORUS, PLASMA STAT 11/20/2024 9: 17 PM EDT MAGNESIUM, PLASMA STAT 11/20/2024 9:1 7 PM EDT COMPREHENSIVE METABOLIC PANEL, PLASMA STAT 11/20/2024 9:17 PM EDT TEST QUALITATIVE PLASMA STAT 11/20/2024 9:17 PM EDT ECG ADULT STAT 11/20/2024 8:52 PM EDT TSH Routine 11/11/2024 10:20 AM EDT Thyrotoxicosis with Tricia thyroiditis FREE T4, PLASMA Routine 11/11/2024 10:20 AM EDT Thyrotoxicosis with Tricia thyroiditis T3 Routine 11/11/2024 10:20 AM EDT Thyrotoxicosis with Tricia thyroiditis HIV 1/2 ANTIBODY/ANTIGEN SCREEN WITH REFLEX TO HIV I/II DIFFERENTIATION Routine 04/18/2024 10:13 AM EDT Supervision of high risk in second trimester HEPATITIS C ANTIBODY - ED W/REFLEX TO HCV QUANT PCR STAT 02/07/2024 10:11 PM EDT from Last 3 Months or Most Recently Relevant to Health Maintenance Results * XR Abdomen 1 View (12/28/2024 9:40 AM EDT) Anatomical Region Laterality Modality Body Digital Radiogra phy Estuardo Jon MD IMG XR PROCEDURES Final Result * Cytomegalovirus (CMV) Quantitative PCR (12/15/2024 3:29 PM EDT) Pathologist [facility] Cytomegalovirus (CMV) Quantitative Interpretation Not Detected Not Detected 12/19/2024 2:26 PM EDT [facility] Blood Venous blood specimen / Unknown Venipuncture / Unknown 12/15/2024 3:29 PM EDT 12/15/2024 3:30 PM EDT Narrative [facility] - 12/19/2024 2:26 PM EDT The Balcon[employer] M2000 CMV test is a Real Time [...] [facility] LAB BLOOD ORDERABLES Final Res ult [facility] [address] [place] [address] * T3 (12/15/2024 3:29 PM EDT) Only the most recent of2 resultswithin the time period is included. T3, Serum 177 87 - 187 ng/dL 12/15/2024 4:54 PM EDT [facility] Blood Venous blood specimen / Unknown Venipuncture / Unknown 12/15/2024 3:29 PM EDT 12/15/2024 3:30 PM EDT [facility] CELESTE LAB BLOOD ORDERABLES Final Res ult [facility] [address] [place] [address] * Brayan-Holguin virus VCA, IgM (12/15/2024 3:29 PM EDT) EBV ANTIBODY TO VIRAL CAPSID ANTIGEN IGM <10.0 0.0 - 43.9 U/mL 12/18/2024 11:09 AM EDT [facility] Blood Venous blood specimen / Unknown Venipuncture / Unknown 12/15/2024 3:29 PM EDT 12/15/2024 3:30 PM EDT Narrative [facility]) - 12/18/2024 11:09 AM EDT INTERPRETIVE INFORMATION: Brayan-Holguin Virus Antibody to Viral Capsid Antigen, IgM 35.9 U/mL or less.......Not Detected 36.0-43.9 U/mL..........Indeterminate - Repeat testing in 10-14 days may be helpful. 44.0 U/mL or greater....Detected Performed By: [facility] [address] [place] [address] Forestry Support Specialist: Wilber Pardo MD, PhD CLIA Number: [id number] [facility] LAB BLOOD ORDERABLES Final Res ult [facility]) [address] [place] [address] * (ABNORMAL) Brayan Holguin IgG Ab (12/15/2024 3:29 PM EDT) EBV ANTIBODY TO VIRAL CAPSID ANTIGEN IGG 185.0(H) 0.0 - 21.9 U/mL 12/18/2024 11:11 AM EDT [facility] Blood Venous blood specimen / Unknown Venipuncture / Unknown 12/15/2024 3:29 PM EDT 12/15/2024 3:30 PM EDT Narrative [facility] - 12/18/2024 11:11 AM EDT INTERPRETIVE INFORMATION: Brayan-Holguin Virus Antibody to Viral Capsid Antigen, IgG 17.9 U/mL or less.......Not Detected 18.0-21.9 U/mL..........Indeterminate - Repeat testing in 10-14 days may be helpful. 22.0 U/mL or greater....Detected Performed By: [facility] [address] [place] [address] Forestry Support Specialist: Wilber Pardo MD, PhD CLIA Number: [id number] [facility] LAB BLOOD ORDERABLES Final Res ult Performing Organization Address [facility] Co de Phone Number [facility] [address] [place] [address] * Prothrombin Time/INR (12/15/2024 3:29 PM EDT) [facility] Prothrombin Time 13.7 12.0 - 14.3 sec LAB COAGULATION METHOD 12/15/2024 5:05 PM EDT [facility] INR 1.0 0.9 - 1.1 LAB COAGULATION METHOD 12/15/2024 5:05 PM EDT [facility] Blood Venous blood specimen / Unknown Venipuncture / Unknown 12/15/2024 3:29 PM EDT 12/15/2024 3:30 PM EDT Narrative [facility] - 12/15/2024 5:05 PM EDT OPTIMAL INR RANGES FOR PATIENT ON ORAL ANTICOAGULANT THERAPY Prevention of venous thromboembolism INR 2.0 to 3.0 In patients with heart disease: Atrial fibrillation INR 2.0 to 3.0 Valvular heart disease INR 2.0 to 3.0 Tissue heart valves INR 2.0 to 3.0 Mechanical prosthetic valves INR 2.5 to 3.5 Prevention of recurrent CO INR 2.5 to 3.5 [facility] LAB BLOOD ORDERABLES Final Res ult [facility] [address] [place] [address] * (ABNORMAL) CBC and Differential (12/15/2024 3:29 PM EDT) [facility] Signature WBC Count 5.38 3.70 - 10.30 10*3/uL LAB HEMATOLOGY METHOD 12/15/2024 4:38 PM EDT [facility] RBC Count 4.81 3.90 - 5.20 10*6/uL LAB HEMATOLOGY METHOD 12/15/2024 4:38 PM EDT [facility] HGB 12.6 11.2 - 15.7 g/dL LAB HEMATOLOGY METHOD 12/15/2024 4:38 PM EDT [facility] HCT 39.7 34.0 - 45.0 % LAB HEMATOLOGY METHOD 12/15/2024 4:38 PM EDT [facility] Platelet Count 311 155 - 369 10*3/uL LAB HEMATOLOGY METHOD 12/15/2024 4:38 PM EDT [facility] MCV 83 79 - 98 fL LAB HEMATOLOGY METHOD 12/15/2024 4:38 PM EDT [facility] MCH 26.2 26.0 - 32.0 pg LAB HEMATOLOGY METHOD 12/15/2024 4:38 PM EDT [facility] MCHC 31.7 30.7 - 35.5 g/dL LAB HEMATOLOGY METHOD 12/15/2024 4:38 PM EDT [facility] RDW 12.2 11.5 - 14.5 % LAB HEMATOLOGY METHOD 12/15/2024 4:38 PM EDT [facility] MPV 11.2 8.8 - 12.5 fL LAB HEMATOLOGY METHOD 12/15/2024 4:38 PM EDT [facility] nRBC 0.0 <=0.0 per 100 WBCs LAB HEMATOLOGY METHOD 12/15/2024 4:38 PM EDT [facility] Differential Type Automated LAB HEMATOLOGY METHOD 12/15/2024 4:38 PM EDT [facility] Neutrophils % 61 % LAB HEMATOLOGY METHOD 12/15/2024 4:38 PM EDT [facility] Lymphocytes % 32 % LAB HEMATOLOGY METHOD 12/15/2024 4:38 PM EDT [facility] Monocytes % 5 % LAB HEMATOLOGY METHOD 12/15/2024 4:38 PM EDT [facility] Eosinophils % 1 % LAB HEMATOLOGY METHOD 12/15/2024 4:38 PM EDT [facility] Basophils % 1 % LAB HEMATOLOGY METHOD 12/15/2024 4:38 PM EDT [facility] Immature Granulocytes % 0 % LAB HEMATOLOGY METHOD 12/15/2024 4:38 PM EDT [facility] Neutrophils Absolute 3.33 1.60 - 6.10 10*3/uL LAB HEMATOLOGY METHOD 12/15/2024 4:38 PM EDT [facility] Lymphocytes Absolute 1.70 1.20 - 3.90 10*3/uL LAB HEMATOLOGY METHOD 12/15/2024 4:38 PM EDT [facility] Monocytes Absolute 0.25(L) 0.30 - 0.90 10*3/uL LAB HEMATOLOGY METHOD 12/15/2024 4:38 PM EDT [facility] Eosinophils Absolute 0.03 0.00 - 0.50 10*3/uL LAB HEMATOLOGY METHOD 12/15/2024 4:38 PM EDT [facility] Basophils Absolute 0.05 0.00 - 0.10 10*3/uL LAB HEMATOLOGY METHOD 12/15/2024 4:38 PM EDT [facility] Immature Granulocytes Absolute 0.02 0.00 - 0.06 10*3/uL LAB HEMATOLOGY METHOD 12/15/2024 4:38 PM EDT [facility] Blood Venous blood specimen / Unknown Venipuncture / Unknown 12/15/2024 3:29 PM EDT 12/15/2024 3:30 PM EDT Narrative [facility] - 12/15/2024 4:38 PM EDT Therapeutic decision making should be based on absolute values, rather than percentages. us [facility] LAB BLOOD ORDERABLES Final Res ult [facility] [address] [place] [address] * (ABNORMAL) TSH (12/15/2024 3:29 PM EDT) Only the most recent of3 resultswithin the time period is included. Thyroid Stimulating Hormone, Plasma <0.01(L) 0.40 - 4.20 uIU/mL 12/15/2024 4:54 PM EDT [facility] Blood Venous blood specimen / Unknown Venipuncture / Unknown 12/15/2024 3:29 PM EDT 12/15/2024 3:30 PM EDT Narrative [facility] - 12/15/2024 4:54 PM EDT Trimester Specific Ranges TSH ( IU/mL) 1st Trimester 0.1 - 3.0 2nd Trimester 0.19 - 4.06 3rd Trimester 0.3 - 3.7 Roland Wooten MD LAB BLOOD ORDERABLES Final Resu lt Performing Organization Address City/[facility]/ZIP Co de Phone Number [facility] [address] [place] [address] * T4, free (12/15/2024 3:29 PM EDT) Only the most recent of3 resultswithin the time period is included. Free T4, Plasma 1.7 0.8 - 1.7 ng/dL 12/15/2024 4:54 PM EDT [facility] Blood Venous blood specimen / Unknown Venipuncture / Unknown 12/15/2024 3:29 PM EDT 12/15/2024 3:30 PM EDT Narrative [facility] - 12/15/2024 4:54 PM EDT Free T4 Trimester Specific Ranges 1st Trimester 0.9 - 1.50 ng/dL 2nd Trimester 0.7 - 1.40 ng/dL 3rd Trimester 0.7 - 1.24 ng/dL Roland Wooten MD LAB BLOOD ORDERABLES Final Resu lt [facility] [address] [place] [address] * (ABNORMAL) Comprehensive Metabolic Panel, Plasma (12/15/2024 3:29 PM EDT) Only the most recent of2 resultswithin the time period is included. Glucose, Plasma 84 74 - 99 mg/dL 12/15/2024 4:54 PM EDT [facility] BUN, Plasma 8 7 - 21 mg/dL 12/15/2024 4:54 PM EDT [facility] Creatinine, Plasma 0.60 0.60 - 1.10 mg/dL 12/15/2024 4:54 PM EDT [facility] BUN/Creatinine Ratio 13 12/15/2024 4:54 PM EDT [facility] Sodium, Plasma 140 136 - 145 mmol/L 12/15/2024 4:54 PM EDT [facility] Potassium, Plasma 4.1 3.6 - 4.9 mmol/L 12/15/2024 4:54 PM EDT [facility] Chloride, Plasma 105 97 - 107 mmol/L 12/15/2024 4:54 PM EDT [facility] CO2, Plasma 21(L) 22 - 29 mmol/L 12/15/2024 4:54 PM EDT [facility] Anion Gap 14 6 - 16 mmol/L 12/15/2024 4:54 PM EDT [facility] Total Calcium, Plasma 9.4 8.9 - 10.2 mg/dL 12/15/2024 4:54 PM EDT [facility] Total Protein 8.1(H) 6.3 - 7.9 g/dL 12/15/2024 4:54 PM EDT [facility] Albumin, Plasma 4.6 3.5 - 5.2 g/dL 12/15/2024 4:54 PM EDT [facility] AST, Plasma 16 10 - 35 U/L 12/15/2024 4:54 PM EDT [facility] ALT, Plasma 23 10 - 35 U/L 12/15/2024 4:54 PM EDT [facility] Alkaline Phosphatase, Plasma 58 35 - 104 U/L 12/15/2024 4:54 PM EDT [facility] Total Bilirubin, Plasma 0.7 0.2 - 1.1 mg/dL 12/15/2024 4:54 PM EDT [facility] eGFRcr 127.1 mL/min/1.7 3m*2 12/15/2024 4:54 PM EDT [facility] Comment:Reported eGFRcr in m L/min/1.73m2 is based the CKD-EPI 2020 equation that does not use a race coefficient. Blood Venous blood specimen / Unknown Venipuncture / Unknown 12/15/2024 3:29 PM EDT 12/15/2024 3:30 PM EDT [facility] LAB BLOOD ORDERABLES Final Res ult [facility] [address] [place] [address] * Patency Capsule (12/07/2024 7:03 AM EDT) Anatomical Region Laterality Modality Endoscopy Narrative 12/09/2024 8:35 AM EDT No abdominal X ray in 24 hours of patency capsule placement. Will likely need the patency capsule repeated. [facility] GI PROCEDURE ORDERABLES Final Result * XR Chest 1 View (11/20/2024 9:43 [...] Posada MD on 11/20/2024 9:49 PM us Shani Shankar DO IMG XR PROCEDURES Final Resul t * Troponin now and 120 min (11/20/2024 9:17 PM EDT) Troponin T, High Sensitivity, 0 Hour <6 <14 ng/L 11/20/2024 9:47 PM EDT [facility] Blood Venous blood specimen / Unknown Venipuncture / Unknown 11/20/2024 9:17 PM EDT 11/20/2024 9:20 PM EDT Shani Shankar DO LAB BLOOD ORDERABLES Final Re sult [facility] [address] [place] [address] * CBC (11/20/2024 9:17 PM EDT) WBC Count 4.69 3.70 - 10.30 10*3/uL LAB HEMATOLOGY METHOD 11/20/2024 9:23 PM EDT [facility] RBC Count 4.26 3.90 - 5.20 10*6/uL LAB HEMATOLOGY METHOD 11/20/2024 9:23 PM EDT [facility] HGB 11.8 11.2 - 15.7 g/dL LAB HEMATOLOGY METHOD 11/20/2024 9:23 PM EDT [facility] HCT 35.8 34.0 - 45.0 % LAB HEMATOLOGY METHOD 11/20/2024 9:23 PM EDT [facility] Platelet Count 197 155 - 369 10*3/uL LAB HEMATOLOGY METHOD 11/20/2024 9:23 PM EDT [facility] MCV 84 79 - 98 fL LAB HEMATOLOGY METHOD 11/20/2024 9:23 PM EDT [facility] MCH 27.7 26.0 - 32.0 pg LAB HEMATOLOGY METHOD 11/20/2024 9:23 PM EDT [facility] MCHC 33.0 30.7 - 35.5 g/dL LAB HEMATOLOGY METHOD 11/20/2024 9:23 PM EDT [facility] RDW 12.5 11.5 - 14.5 % LAB HEMATOLOGY METHOD 11/20/2024 9:23 PM EDT [facility] MPV 11.6 8.8 - 12.5 fL LAB HEMATOLOGY METHOD 11/20/2024 9:23 PM EDT [facility] nRBC 0.0 <=0.0 per 100 WBCs LAB HEMATOLOGY METHOD 11/20/2024 9:23 PM EDT [facility] Blood Venous blood specimen / Unknown Venipuncture / Unknown 11/20/2024 9:17 PM EDT 11/20/2024 9:20 PM EDT [employer] DO LAB BLOOD ORDERABLES Final Re sult [facility] [address] [place] [address] * hCG qualitative (11/20/2024 9:17 PM EDT) Test Negative Negative 11/20/2024 10:02 PM EDT [facility] Blood Venous blood specimen / Unknown Venipuncture / Unknown 11/20/2024 9:17 PM EDT 11/20/2024 9:20 PM EDT Narrative [facility] - 11/20/2024 10:02 PM EDT Reference Range: Males and non- females: Negative. [facility] LAB BLOOD ORDERABLES Final Re sult [facility] [address] [place] [address] * Phosphorus (11/20/2024 9:17 PM EDT) Phosphorus, Plasma 3.5 2.5 - 4.5 mg/dL 11/20/2024 10:02 PM EDT [facility] Blood Venous blood specimen / Unknown Venipuncture / Unknown 11/20/2024 9:17 PM EDT 11/20/2024 9:20 PM EDT us Shani L Tony DO LAB BLOOD ORDERABLES Final Re sult [facility] [address] [place] [address] * Magnesium (11/20/2024 9:17 PM EDT) [facility] Magnesium, Plasma 2.1 1.9 - 2.4 mg/dL 11/20/2024 10:02 PM EDT [facility] Blood Venous blood specimen / Unknown Venipuncture / Unknown 11/20/2024 9:17 PM EDT 11/20/2024 9:20 PM EDT Shani Shankar DO LAB BLOOD ORDERABLES Final Re sult Performing Organization Address [facility]/ZIP Co de Phone Number [facility] [address] [place] [address] * (ABNORMAL) Blood gas panel, venous (11/20/2024 9:17 PM EDT) [facility] pH, Venous 7.38 7.32 - 7.43 LAB HEMATOLOGY METHOD 11/20/2024 9:21 PM EDT [facility] pCO2, Venous 44 37 - 52 mmHg LAB HEMATOLOGY METHOD 11/20/2024 9:21 PM EDT [facility] pO2, Venous 26 25 - 40 mmHg LAB HEMATOLOGY METHOD 11/20/2024 9:21 PM EDT [facility] SO2, Measured, Venous 44(L) 65 - 80 % LAB HEMATOLOGY METHOD 11/20/2024 9:21 PM EDT [facility] Base Excess, Venous 0.2 -2.0 - 3.0 mmol/L LAB HEMATOLOGY METHOD 11/20/2024 9:21 PM EDT [facility] Bicarbonate, Calculated, Venous 26 22 - 26 mmol/L LAB HEMATOLOGY METHOD 11/20/2024 9:21 PM EDT [facility] Hematocrit, Whole Blood 37.4 34.0 - 45.0 % LAB HEMATOLOGY METHOD 11/20/2024 9:21 PM EDT [facility] Sodium, Whole Blood 141 136 - 145 mmol/L LAB HEMATOLOGY METHOD 11/20/2024 9:21 PM EDT [facility] Potassium, Whole Blood 4.0 3.6 - 4.9 mmol/L LAB HEMATOLOGY METHOD 11/20/2024 9:21 PM EDT [facility] Chloride, Whole Blood 110(H) 97 - 107 mmol/L LAB HEMATOLOGY METHOD 11/20/2024 9:21 PM EDT [facility] Glucose, Whole Blood 98 74 - 99 mg/dL LAB HEMATOLOGY METHOD 11/20/2024 9:21 PM EDT [facility] Lactate, Venous, Whole Blood 1.0 0.5 - 2.2 mmol/L LAB HEMATOLOGY METHOD 11/20/2024 9:21 PM EDT [facility] Ionized Calcium, Whole Blood 4.8 4.6 - 5.1 mg/dL LAB HEMATOLOGY METHOD 11/20/2024 9:21 PM EDT [facility] Blood Venous blood specimen / Unknown Venipuncture / Unknown 11/20/2024 9:17 PM EDT 11/20/2024 9:20 PM EDT us Shani Shankar DO LAB BLOOD ORDERABLES Final Re sult Performing Organization Address City/[facility] Co de Phone Number [facility] [address] [place] [address] * EKG now - STAT (adult) (11/20/2024 8:52 PM EDT) EKG DIAGNOSIS CLASS Abnormal MUSE ECG Ventricular Rate 83 BPM MUSE ECG Atrial Rate 83 BPM MUSE ECG MO Interval 128 ms MUSE ECG QRSD Interval 72 ms MUSE ECG QT Interval 342 ms MUSE ECG QTC Interval 401 ms MUSE ECG P [place] 60 degrees MUSE ECG R [place] 62 degrees MUSE ECG T Wave [place] 21 degrees MUSE ECG Diagnosis Sinus rhythm with occasional premature ventricular complexes MUSE ECG Diagnosis Cannot rule out Anterior infarct , age undetermined MUSE ECG Diagnosis Abnormal ECG MUSE ECG Diagnosis MUSE ECG Diagnosis Confirmed by Tay Barraza ([id number]) on 11/21/2024 1:40:03 PM MUSE ECG 11/20/2024 8:52 PM EDT 11/21/2024 1:40 PM EDT us Leo Souza MD ECG ORDERABLES Final Resu lt MUSE ECG * HIV 1 & 2 Antibody/Antigen Screen (04/18/2024 10:13 AM EDT) Pathologist [facility] HIV 1 & 2 Antibody/Antigen Screen Non Reactive Non Reactive 04/18/2024 12:07 PM EDT [facility] Comment:Screening for HIV 1 & 2 antibodies, and P24 antigen is NONREACTIVE. No confirmatory testing is required. Blood Venous blood specimen / Unknown Venipuncture / Unknown 04/18/2024 10:13 AM EDT 04/18/2024 10:13 AM EDT us Shalonda Davies APRN LAB BLOOD ORDERABLES Susannah l Result Performing Organization Address [facility] Co de Phone Number [facility] [address] [place] [address] * Hepatitis C Antibody - ED (02/07/2024 10:11 PM EDT) Pathologist [facility] Hepatitis C Antibody Negative Negative 02/07/2024 11:11 PM EDT [facility] Blood Venous blood specimen / Unknown Venipuncture / Unknown 02/07/2024 10:11 PM EDT 02/07/2024 10:18 PM EDT us Mark Roger MD LAB BLOOD ORDERABLES Final Resu lt Performing Organization Address [facility] Co de Phone Number [facility] [address] [place] [address] from Last 3 Months or Most Recently Relevant to Health Maintenance Additional Health Concerns Active Problems Noted Date Diagnosed Date CPM S22 PP LABOR (OBSTETRICS) 02/24/2024 Insurance MEDICAID-[place] Advance Directives * Full Code (Latest Code Status on File) Date Activated Date Inactivated Comments 07/16/2024 8:04 AM 07/18/2024 3:21 PM Question Answer Comments Patient has decision-making capacity? Yes * Full Code Date Activated Date Inactivated Comments 07/04/2024 4:06 PM 07/06/2024 4:25 PM Question Answer Comments Patient has decision-making capacity? Yes * Full Code Date Activated Date Inactivated Comments 04/29/2024 9:48 PM 05/01/2024 3:13 PM Question Answer Comments Patient has decision-making capacity? Yes * Full Code Date Activated Date Inactivated Comments 03/13/2024 10:18 PM 03/16/2024 3:37 PM Question Answer Comments Patient has decision-making capacity? Yes * Full Code Date Activated Date Inactivated Comments 03/13/2024 10:18 PM 03/13/2024 10:18 PM Question Answer Comments Patient has decision-making capacity? Yes Care Teams Retail Marketing Specialist Relationship Specialty Start Date End Date Rey Wyatt MD [address] [address] PCP - General 11/16/24 Angela Oleary, RN [facility] Registered Nurse Cardiology 02/17/24
--- OUTSIDE RECORDS SUMMARY | 2025-01-05 09:07 | XMS_ITS | Encounter Summary ---
Author Organization Healthcare Address [address] [place] [address] Care Team Providers Care Telegraph Office Telephone Clerk Name Role Phone Angela Oleary RN Unavailable Unavailable Rey Wyatt MD Primary Care Provider [phone] Encounter Details Date Type Department Care Team (Late st Contact Info) Description 12/20/2024 Results Follow-Up [facility] Medicine Specialties [address] [place] [address] Silverio Tam PA [address] [place] [address] Social History Tobacco Use Types [...] often do you attend chur ch or orthodox services? Never 02/22/2024 Do you belong to any clubs o r organizations such as uatsdin groups, unions, fraternal or athletic groups, or [...] Recorded Patient Health Questionnaire-2 Score 0 12/15/2024 [facility] - Occupational Stress Questionnaire Answer Date [...] in a fpc (including now)? 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 [address] Cody Barnett MD [address] [facility] [address] [place] [address] 02/10/2025 10:00 AM EDT Office Visit [facility] Endocrinology [address] [place] [phone] Rachel Khan PA [address] [facility] [address] [place] [address] 02/16/2025 1:20 PM EDT Office Visit [facility] [address] [place] [address] Courtney Torres MD [address] [place] [address] 03/15/2025 3:30 PM EDT Consult [place] [facility] [address] [place] [address] Kendy Sanchez APRN [address] [facility] [address] [place] [address] 04/17/2025 2:00 PM EDT [facility] [place] [facility] Medicine Specialties [address] [place] [address] Silverio Tam PA [address] [facility] [address] [place] [address] documented as of this encounter [...] documented as of this encounter Care Teams Telegraph Office Telephone Clerk Relationship Specialty Start Date End Date Rey Wyatt MD [address] [place] [address] PCP - General 11/16/24 Angela Oleary, RN [facility] Registered Nurse Cardiology 02/17/24 documented as of this encounter
--- OUTSIDE RECORDS SUMMARY | 2025-01-05 09:07 | XMS_ITS | Encounter Summary ---
Author Organization Healthcare Address [address] [place] [address] Care Team Providers Care President [employer] Name Role Phone Angela Oleary RN Unavailable Unavailable Rey Wyatt MD Primary Care Provider [phone] Encounter Details Date Type Department Care Team (Late st Contact Info) Description 12/30/2024 Orders Only [facility] Medicine Specialties [address] [place] [address] Silverio Tam PA [address] [place] [address] Social History Tobacco Use Types [...] often do you attend chur ch or mandaeism services? Never 02/22/2024 Do you belong to [...] Recorded Patient Health Questionnaire-2 Score 0 12/15/2024 [facility] - Occupational Stress Questionnaire Answer [...] a long term (including now)? 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 0 07/16/2024 CAGE Questionnaire Score 0 024 Utilities Answer Date Recorded In the past 12 months has th e [employer], gas, oil, or water company threatened to [...] EDT Appointment [facility] Endoscopy [address] [place] [address] Cody Barnett MD [address] [place] [address] 02/10/2025 10:00 AM EDT Office Visit [facility] Endocrinology [address] [place] [phone] Rachel Khan PA [address] [facility] [address] [place] [address] 02/16/2025 1:20 PM EDT Office Visit [facility] [address] [facility] [place] [address] Courtney Torres MD [address] [facility] [address] [place] [address] 03/15/2025 3:30 PM EDT Consult [place] [facility] [address] [place] [address] Kendy Sanchez APRN [address] [place] [address] 04/17/2025 2:00 PM EDT Office Visit [facility] Medicine Specialties [address] [place] [address] Silverio Tam PA [address] [place] [address] documented as of this encounter [...] documented as of this encounter Care Teams President [employer] Relationship Specialty Start Date End Date Rey Wyatt MD [address] [place] [address] PCP - General 11/16/24 Angela Oleary, RN [facility] Registered Nurse Cardiology 02/17/24 documented as of this encounter
--- OUTSIDE RECORDS SUMMARY | 2025-01-05 09:07 | XMS_ITS | Encounter Summary ---
Author Organization [employer] Address [address] [place] [address] Care Team Providers Care Granulator Machine Operator Name Role Phone Molly Louis MD Primary Care Provider [phone] Encounter Details Date Type Department Care Team (Late st Contact Info) Description 04/14/2024 Outside Orders [facility] Admitting [address] [place] [address] Silverio Tam, BOOKER [address] [place] [id number] Blood in stool (Primary Dx) Social History Tobacco Use Types [...] Date Guerrero rded Speak language other than American at home Not on file 08/13/2023 Want [...] documented as of this encounter Results * (ABNORMAL) Calprotectin, Fecal by Immunoassay(SENDOUT) (04/14/2024 11:06 AM EDT) Calprotectin, Fecal 87(H) <=49 ug/g 04/19/2024 11:26 PM EDT [facility] Comment: REFERENCE INTERVAL: Calprotectin, Fecal by Immunoassay Less than 50 ug/g.........Normal 50-120 ug/g...............Borderline elevated, test should be re-evaluated in 4-6 weeks. 121 ug/g or greater.......Elevated Performed By: [facility] [address] [place] [address] Package Winder: Wilber Pardo MD, PhD CLIA Number: [id number] Stool 04/14/2024 11:0 6 AM EDT 04/14/2024 11:47 AM EDT us [facility] - GENERAL ORDERAB LES Final Result [facility] [address] [place] [address], [facility] [phone] documented in this encounter Visit Diagnoses Diagnosis Blood in stool- Primary documented in this encounter Care Teams Granulator Machine Operator Relationship Specialty Start Date End Date Molly Louis MD [address] [place] [address] PCP - General 08/22/24 documented as of this encounter
--- OUTSIDE RECORDS SUMMARY | 2025-01-05 09:07 | XMS_ITS | Encounter Summary ---
Author Organization Healthcare Address [address] [place] [id number] Care Team Providers Care Inspector Experimental Assembly Name Role Phone Molly Louis MD Primary Care Provider [phone] Angela Oleary RN Unavailable Unavailable Rey Wyatt MD Primary Care Provider [phone] Reason for Visit * Reason Onset Date Comments Med Refill 03/03/2024 Encounter Details Date Type Department Care Team (Late st Contact Info) Description 03/03/2024 Refill [facility] Inpatient [address] [place] [address] Paris Marion MD [address] [place] [address] Social History Tobacco Use Types Packs/Day Years [...] any clubs o r organizations such as spiritism groups, unions, fraternal or athletic groups, or [...] Recorded Patient Health Questionnaire-2 Score 0 02/17/2024 [facility] of Occupat ional [facility] - Occupational Stress Questionnaire Answer [...] a care home (including now)? No 02/09/2024 [place] Depression Scale Answer Date Recorded [place] Depression Scale Total 8 02/22/2024 The thought [...] Miscellaneous Notes * Telephone Encounter - Luh Keenan RN - 03/04/2024 1:57 PM EDT Patient has refills on file, will discuss in clinic on Thursday. Luh Keenan RN documented in this encounter Plan of Treatment Upcoming Encounters Date Type Department Care Team (Late st Contact Info) Description 01/17/2025 7:00 AM EDT Appointment [facility] Endoscopy [address] [place] [address] Cody Barnett MD [address] [place] [address] 02/10/2025 10:00 AM EDT Office Visit [facility] Endocrinology [address] [place] [phone] Rachel Khan PA [address] [place] [address] 02/16/2025 1:20 PM EDT Office Visit [facility] [place] [address] [place] [address] Courtney Torres MD [address] [place] [address] 03/15/2025 3:30 PM EDT Consult [facility] [address] [place] [address] Kendy Sanchez APRN [address] [place] [address] 04/17/2025 2:00 PM EDT Office Visit [facility] Medicine Specialties [address], [address] [place] [address] Silverio Tam PA [address] [place] [address] documented as of this encounter [...] documented as of this encounter Care Teams Inspector Experimental Assembly Relationship Specialty Start Date End Date Molly Louis MD [address] [place], [place] [id number] PCP - General Family Medicine 02/09/24 11/15/24 [place] [address] [place] [address] PCP - General 11/16/24 Angela Oleary, RN [facility] Registered Nurse Cardiology 02/17/24 documented as of this encounter
== END 2025-01-04 23:59 ==
LOC: LAB.DROPOF 01-05 09:00
PROVIDERS: PCP Nurse Practitioner Family; Visit Provider Nurse Practitioner Family
DX: E05.90 Thyrotoxicosis, unspecified without thyrotoxic crisis or storm (principal); L30.9 Dermatitis, unspecified
CPT/HCPCS: 84436; 84439; 84443; 84481

== ENCOUNTER → 2025-01-06 11:10 | Outpatient (CLI) | payer MEDICAID, SELFPAY ==
--- OUTSIDE RECORDS SUMMARY | 2024-11-11 08:40 | XMS_ITS | Encounter Summary ---
Author Organization [facility] Address [address] [place] [address] Care Team Providers Care Optimization Consultant Name Role Phone Molly Louis MD Primary Care Provider [phone] Angela Oleary RN Unavailable Unavailable Reason for Referral * Consultation (Routine) - Authorized Specialty Diagnoses / Procedures Referred By Mili joe Referred To Contact Diagnoses Thyrotoxicosis with Angela thyroiditis Roland Wooten MD [address] [address] Phone: tel: fax: Referral ID Status Reason Start Date Expiration Date V isits Requested Visits Authorized [id number] Authorized 11/11/2024 05/13/2026 1 1 Reason for Visit * Reason Comments Thyroid Problem Encounter Details Date Type Department Care Team (Latest Contact Info) Description 11/11/2024 8:40 AM EDT [facility] [address] [place] [address] (1), Roland Wooten Fellow Abundio Kyle MBBS [address] [place] [address] Thyrotoxicosis with Angela thyroiditis (Primary [...] How often do you attend chur or jewish services? Never 02/22/2024 Do you belong to any clubs o r organizations such as jehovah's witness groups, unions, fraternal or athletic groups, or [...] Recorded Patient Health Questionnaire-2 Score 0 11/16/2024 [facility] - Occupational Stress Questionnaire Answer Date Recorded [...] place to sleep or slept in a custodial (including now)? 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 0 07/16/2024 CAGE Questionnaire Score 0 024 Utilities Answer Date Recorded In the past 12 months has e [employer], gas, oil, or water [employer] threatened to shut off services in your [...] 24 y.o. presents for Consultation for hyperthyroidism. [facility] Reyez Consult ordered by Molly Louis [...] day before colonoscopy Blood Glucose Monitoring Suppl ([place]uch Verio Reflect) w/Device kit busPIRone (BUSPAR) 5 mg, Oral, Nightly, Takes at 8PM cholecalciferol (Vitamin D-3) 50 MCG (1999 UT) capsule famotidine (PEPCID) 20 mg, Oral, 2 times daily ibuprofen 600 mg, Oral, Every 6 hours PRN ivabradine HCl (CORLANOR) 2.5 mg, Oral, 2 times daily Lancets (Gamma MedicaTouch Delica Plus [id number]) misc ondansetron (ZOFRAN) 4 mg, Oral, Every [...] tablet 1 tablet, Oral, Daily sodium chloride ([place] Nasal [place]) 0.65 % nasal spray 1 spray, Each [...] by Cardiology PRAKASH Armstrong Endocrinology Fellow PGY-5 [facility] ENDOCRINOLOGY [address] [place] [address], [address] [facility] [address] Called patient: She continued to complain [...] Appointment [facility] [address] [place] [address] Cody Barnett MD [address] [place] [address] 02/10/2025 10:00 AM EDT Office Visit [facility] Endocrinology [address] [place] [address] Rachel Khan PA [address] [place] [phone] 02/16/2025 1:20 PM EDT Office Visit [facility] [place] [address], [address] [place] [address] Courtney Torres MD [address] [place] [address] 03/15/2025 3:30 PM EDT Consult [facility] [address] [place] [address] Kendy Sanchez, TRISTAN [address] [place] [address] 04/17/2025 2:00 PM EDT Office Visit [facility] Medicine Specialties [address] [place] [address] Silverio Tam PA [address] [place] [address] Scheduled Referrals Name Type Priority Associated Diagnoses Orde r Schedule Follow Up [facility] Outpatient Referral Routine Thyrotoxicosis with Angela [...] - 187 ng/dL 11/11/2024 12:49 PM EDT [facility] Blood Venous blood specimen / Unknown Venipuncture / Unknown 11/11/2024 10:20 AM EDT 11/11/2024 10:20 AM EDT us Roland Wooten MD LAB BLOOD ORDERABLES Final Resu lt Performing Organization Address [facility] [place] [address] * (ABNORMAL) T4, free (11/11/2024 10:20 AM EDT) Free T4, Plasma 2.3(H) 0.8 - 1.7 ng/dL 11/11/2024 12:49 PM EDT [facility] Blood Venous blood specimen / Unknown Venipuncture / Unknown 11/11/2024 10:20 AM EDT 11/11/2024 10:20 AM EDT Narrative [facility] - 11/11/2024 12:49 PM EDT Free T4 Trimester Specific Ranges 1st Trimester 0.9 - 1.50 ng/dL 2nd Trimester 0.7 - 1.40 ng/dL 3rd Trimester 0.7 - 1.24 ng/dL us Roland Wooten MD LAB BLOOD ORDERABLES Final Resu lt Performing Organization Address [facility] [place] [address] * (ABNORMAL) TSH (11/11/2024 10:20 AM EDT) Thyroid Stimulating Hormone, Plasma <0.01(L) 0.40 - 4.20 uIU/mL 11/11/2024 12:49 PM EDT [facility] Blood Venous blood specimen / Unknown Venipuncture / Unknown 11/11/2024 10:20 AM EDT 11/11/2024 10:20 AM EDT Narrative [facility] - 11/11/2024 12:49 PM EDT Trimester Specific Ranges TSH ( IU/mL) 1st Trimester 0.1 - 3.0 2nd Trimester 0.19 - 4.06 3rd Trimester 0.3 - 3.7 us Roland Wooten MD LAB BLOOD ORDERABLES Final Resu lt [facility] [address] [place] [address] documented in this encounter Visit Diagnoses Diagnosis [...] documented as of this encounter Care Teams Optimization Consultant Relationship Specialty Start Date End Date Molly Louis MD [address] [place] [address] PCP - General Family Medicine 02/09/24 11/15/24 Angela Oleary, RN [facility] Registered Nurse Cardiology 02/17/24 documented as of this encounter
--- OUTSIDE RECORDS SUMMARY | 2024-11-16 15:15 | XMS_ITS | Encounter Summary ---
Author Organization Healthcare Address [address] [place] [id number] Care Team Providers Care Dev Technical Mgr Name Role Phone Angela Oleary RN Unavailable Unavailable Rey Wyatt MD Primary Care Provider [phone] Encounter Details Date Type Department Care Team ([facility] st Contact Info) Description 11/16/2024 3:15 PM EDT Office Visit [facility] [place] [address] [address] [facility] [place] [address] Ashanti Camarena MD [address] [place] [phone] Pott's disease (Primary Dx) Social History Tobacco [...] How often do you attend chur or adventist services? Never 02/22/2024 Do you belong to any clubs o r organizations such as gnosticism groups, unions, fraternal or athletic groups, or [...] Recorded Patient Health Questionnaire-2 Score 0 11/16/2024 [facility] of Occupat ional Health - Occupational Stress [...] place to sleep or slept in a correction (including now)? No 02/09/2024 [place] Depression Scale Answer Date Recorded [place] Depression Scale Total 6 08/08/2024 The thought [...] drink first t casi in the morning (EYE-ECHO VASCULAR TECHNOLOGIST) to steady your nerves or to get [...] at all 11/16/2024 3:00 PM EDT Angella Catsano Moving or speaking so slowly that other [...] establish with [facility]. I spent 35 minutes performing the following components of the encounter (on the day of the encounter): reviewing History, examining the patient, reviewing imaging and/or labs, Independently interpreting echocardiogram, ECG and/or other imaging results, ordering tests or procedures, ordering medications, counseling the patient and family/caregiver, communicating with other health dog day care attendant, care coordination, and entering clinical information in [...] EDT Appointment [facility] [address] [place] [address] Cody Barnett MD [address] [place] [address] 02/10/2025 10:00 AM EDT Office Visit [facility] Endocrinology [address] [place] [address] Rachel Khan PA [address] [place] [address] 02/16/2025 1:20 PM EDT Office Visit [facility] [place] [address], [address] [place] [address] Courtney Torres MD [address] [place] [address] 03/15/2025 3:30 PM EDT Consult [facility] [address], [address] [place] [address] Kendy Sanchez, TRISTAN [address] [place] [address] 04/17/2025 2:00 PM EDT Office Visit [facility] Medicine Specialties [address], [address] [place] [address] Silverio Tam PA [address] [place] [address] documented as of this encounter [...] documented as of this encounter Care Teams Dev Technical Mgr Relationship Specialty Start Date End Date Rey Wyatt MD [address] [facility] [address] [place] [address] PCP - General 11/16/24 Angela Oleary, RN [facility] Registered Nurse Cardiology 02/17/24 documented as of this encounter
--- OUTSIDE RECORDS SUMMARY | 2024-11-20 21:18 | XMS_ITS | Encounter Summary ---
Author Organization Healthcare Address [address] [place] [address] Care Team Providers Care Bone Crusher Name Role Phone Angela Oleary RN Unavailable Unavailable Rey Wyatt MD Primary Care Provider [phone] Reason for Visit * Reason Comments Multiple Complaints Encounter Details Date Type Department Care Team ([facility] st Contact Info) Description 11/20/2024 9:18 PM EDT - 11/20/2024 11:32 PM EDT Emergency [facility] Emergency Department [address] [place] [address] Leo Souza MD [address] [place] [address] Palpitations (Primary Dx) Discharge Disposition: Home or Self Care Social History Tobacco Use Types Packs/Day Years Used Date Smoking Tobacco: Former Cigarettes Q uit: 2021 Smokeless Tobacco: Former Comments:History [...] How often do you attend chur or quaker services? Never 02/22/2024 Do you belong to any clubs o r organizations such as jainism groups, unions, fraternal or athletic groups, or [...] Health Questionnaire-2 Score 0 11/16/2024 [facility]ational Stress Questionnaire Answer [...] place to sleep or slept in a group home (including now)? 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-CLAIMS SORTER) to steady your nerves or to get [...] Sign Reading Time Taken Comments Blood Pressure 107/82 11/20/2024 11:15 PM EDT Pulse 75 11/20/2024 11:15 PM EDT Temperature 36.4 C (97.5 F) 11/20/2024 8:42 PM EDT Respiratory Rate 12 11/20/2024 11:15 PM EDT Oxygen Saturation 100% 11/20/2024 11:15 PM EDT Inhaled Oxygen Concentration - - Weight 62.7 kg (138 lb 3.7 oz) 11/20/2024 9:43 P M EDT Height - - Body Mass Index 23 11/16/2024 2:54 PM EDT documented in this encounter Functional Status * Calculated C-SSRS Risk Score (Lifetime/Recent) Answer Date of Assessment Author No Risk Indicated 11/20/2024 9:44 PM EDT Radha Ruelas RN * Question Answer Date of Assessment Author 1. Wish to be (Past 1 Month) No 11/20/2024 9:44 PM EDT Radha Ruelas RN 2. Non-Specific Active Suici keron Thoughts (Past 1 Month) No 11/20/2024 9:44 PM EDT Giulia Ruelas RN 6. Suicidal Behavior (Lifetime) No 9:44 PM EDT Radha Ruelas RN documented as of this encounter Discharge Instructions * Discharge Instructions* Allison Keller MD - 11/20/2024 11:27 PM EDT Please return to the ED with new or worsening symptoms, please follow up for repeat labs next week. documented in this encounter Medications at Time of Discharge acetaminophen (Tylenol) 325 MG capsule Take 2 capsules (650 mg) by mouth every 6 (six) hours if needed for mild pain. 30 capsule 1 07/18/2024 Blood Glucose Monitoring Suppl ([employer] Verio Reflect) w/Device kit 04/14/2024 busPIRone (Buspar) 5 MG tablet Take 1 tablet (5 mg) by mouth every night. Takes at 8PM 30 tablet 08/16/2024 cholecalciferol (Vitamin D-3) 50 MCG (1999 UT) capsule 10/25/2024 famotidine (Pepcid) 20 MG tablet Take 1 tablet (20 mg) by mouth 2 (two) times a day. 60 tablet 11 08/16/2024 fludrocortisone (Florinef) 0.1 MG tabletIndications:P helen's disease Take 1 tablet by mouth daily. 30 tablet 3 11/16/2024 ibuprofen 600 MG tablet Take 1 tablet (600 mg) by mouth every 6 (six) hours if needed for mild pain. 30 tablet 1 07/18/2024 Lancets (OneTouch Delica Plus [id number]) [facility] 04/14/2024 methIMAzole (Tapazole) 10 MG tablet Take 1 tablet by mouth daily. 60 tablet 11/11/2024 01/11/20 25 ondansetron (Zofran) 4 MG tablet Take 1 tablet (4 mg) by mouth every 8 (eight) hours if needed for nausea or vomiting. 3 tablet 5 07/18/2024 OneTouch Verio test strip 1 each by Other route if needed. 04/14/2024 potassium & sodium phosphates (Phos-NaK) 280-160-250 MG packet Take 1 packet by mouth 1 (one) time each day. 30 packet 1 03/16/2024 Vit-Fe Fumarate-FA ( Vitamins) 28-0.8 MG tablet Take 1 tablet by mouth 1 (one) time each day. 30 tablet 11 03/17/2024 03/17/20 25 propranolol (Inderal) 20 MG tabletIndications:P helen's disease Take 1 tablet by mouth 3 (three) times a day. 90 tablet 3 11/16/2024 senna-docusate (Codi-Colace) 8.6-50 MG tablet Take 1 tablet by mouth 1 (one) time each day. 30 tablet 1 07/18/2024 sodium chloride (Piatt Nasal Finley) 0.65 % nasal spray Administer 1 spray into each nostril if needed for congestion. 30 mL 12 04/12/2024 Ventolin HFA 108 (90 Base) MCG/ACT inhaler 10/05/2024 bisacodyl (Bisacodyl EC) 5 MG EC tablet Take all 4 tablets at 4 PM on day before colonoscopy 4 tablet 09/13/2024 01/07/20 25 ondansetron ODT (Zofran-ODT) 4 MG disintegrating tablet Take 1 tablet (4 mg) by mouth every 8 (eight) hours if needed for nausea or vomiting. 20 tablet 2 03/16/2024 12/31/19 25 polyethylene glycol (GoLYTELY) 236 g solution SEE PHARMACY NOTES FOR PATIENT LABEL INSTRUCTIONS- for Colonoscopy prep protocol 4000 mL 09/13/2024 01/07/20 25 predniSONE (Deltasone) 10 MG tablet Take 4 tablets by mouth daily for 5 days, THEN 3 tablets daily for 5 days, THEN 2 tablets daily for 5 days, THEN 1 tablet daily for 5 days, THEN 0.5 tablets daily for 5 days. 53 tablet 11/14/2024 12/17/19 documented as of this encounter Miscellaneous Notes * Significant Event - Jaren Lares DO - 11/20/2024 10:29 PM EDT Endocrinology Significant Event Note: I was paged this evening by the ED for advice regarding Francy Delarosa (specifically if she needed admission for her hyperthyroidism). She is a 24 y.o. female with PMH of POTS, recent and Hashitoxicosis/ thyroiditis (TPO Ab+). She is now 4 months and was referred to En docrinology after having a hospitalization (in the ICU) in October for suspected thyroid storm (labs at that time with TSH <0.02 with FT4 3.01 -> TSH <0.02 with FT4 2.66). TSI negative. She was treated with 30 mg methimazole daily x2 days, propanolol and IV steroids during that admission. Patient discharged home on propanolol 20 mg TID, which she continues. She had her TFTs rechecked in the Endocrinology clinic on 11/11/24: TSH <0.01, FT4 2.3 and T3 176. Patient with complaint of palpitations, diarrhea, hot flashes and anxiety. Based on her results and symptoms, methimazole 10 mg daily and prednisone taper started by Endocrinology at that time. TSH& FT4 planned to be rechecked in 4 weeks. However, patient presented to ED this evening with similar symptoms to above: palpitations, abdominal cramping/pain, diarrhea and weakness. She was concerned about going into thyroid storm and soughtmedical attention. Patient denied chest pain or SOB. TSH<0.01 and FT4 2.4. CBC and CMP with normal blood counts and LFTs, respectively. Per the ED team, she looks comfortable at this time and all of her vitals are stable (normotensive at 120/80, normothermic at 97.5F and HR in the 80s-90s). Given that she is hemodynamically stable and with the above labs, her current clinical picture is not consistent with thyroid storm. FT4 is mildly elevated and the depressed TSH will take weeks-months to improve. She does not need to be admitted from Endocrinology's perspective (in absence of othermedical issues). Patient should continue the methimazole 10 mg daily, prednisone taper and propanolol 20 mg TID (last medication for management of tachycardia/POTS disease). She can repeat her TFTs in the next 3-4 weeks at a lab (future orders have already been placed). She is then scheduled forfollow-up visit with Endocrinology on 02/10/25 but can call clinic with any further questions/con cerns ahead of that visit. ED team will discuss the above plan with patient and appreciated the call back tonight. Jaren Lares DO Endocrinology Fellow PGY-4 * ED Provider Notes - Allison Keller MD - 11/20/2024 8:36 PM EDT - HPI Chief Complaint Patient presents with Multiple Complaints PIT NOTE Francy Delarosa is a 24 y.o. female with a h/o POTS who presents to the ED with multiple complaints.Pt c/o palpitations, diarrhea (x6-7 today), weakness, and abdominal pain. She states she thinks sheis going into thyroid storm. Pt states she was discharged from ICU 2 weeks ago with similar symptoms. Pt denies chest pain, shortness of breath, and cough. Pt denies any other complaints at this time. Main ED note Agree with above. 24 year old femael with history of POTS and thyroiditis presenting forevaluation fo multiple complaints. Reports palpitations, diarrhea abdominal cramping beginning today. She feels very anxious. She feels like she is going into thyroid storm like she did a few weeks ago requiring ICU admission. She takes methimazole 10 mg, 60 propranolol daily. She is 4 months currently. History provided by: Patient interpretive naturalist used: No Patient History Medical History[1] Surgical History[2] Family History[3] Social History[4] Allergies: Allergies[5] Physical Exam ED Triage Vitals [11/20/242041] Temp Heart Rate Resp BP 36.4 ??C (97.5 ??F) 93 18 (!) 139/90 SpO2 Temp Source Heart Rate Source Patient Position 100 % Oral -- Sitting BP Location FiO2 (%) Right arm -- Physical Exam Constitutional: General: She is not in acute distress. HENT: Head: Normocephalic. Comments: No facial swelling Mouth/Throat: Mouth: Mucous membranes are moist. Pharynx: Oropharynx is clear. Cardiovascular: Rate and Rhythm: Normal rate. Pulmonary: Effort: Pulmonary effort is normal. No respiratory distress. Breath sounds: Normal breath sounds and air entry. Comments: Speaking full sentences. Symmetric chest rise Abdominal: General: There is no distension. Musculoskeletal: General: No deformity. Normal range of motion. Cervical back: Normal range of motion. Right lower leg: No edema. Left lower leg: No edema. Comments: Atraumatic, moves all extremities spontaneously Neurological: Mental Status: She is alert. Mental status is at baseline. Comments: Awake Psychiatric: Behavior: Behavior normal. Dale Coma Scale Score: 15 ED Course & MDM Date/Time: 11/20/2024/8:58 PM Scribe Attestation: This note was dictated to me, Suzy Toney, acting as a scribe for Dr. Radha Trujillo DO. Attending Attestation: The documentation was recorded by Suzy Toney acting as scribe in my presence at the time of the encounter and accurately reflects the service I personally performed. - Assessment: 24 y.o. female presents to ED with multiple complaints. It should be noted she has history of POTS which complicates management. She arrives in no distress, hemodynamically stable and afebrile. Differential Diagnosis: thyroid storm, hyperthyroid, electrolyte abnormality, viral gastroenteritis, bacterial gastroenteritis. No mucus in stool or foul smell to suggest C diff. No bloody stool to suggest invasive bacterial gastroenteritis. In order to fully explore the differential diagnosis the following treatments and tests were ordered: All Other Orders Ordered Status Ordering Provider 11/20/242043 EKG now - STAT (adult) Once Preliminary result RADHA TRUJILLO ED Course as of 11/20/24 2336 Sun Nov 20, [id number] Cardiology note 11/16/24 reviewed- Francy Delarosa is a 24 y.o. female who developed severe POTSduring her . She presents today for routine follow-up for inappropriate sinus tachycardia and POTS. Ms. Delarosa delivered a healthy baby girl at 37w0d via on 07/16/2024. Since last visit patient was admitted to OSH for thyroid storm and patient is now following with endocrinology andis being treated with methimazole. Reviewed OSH records with ECG showing sinus tachycardia during admission in setting of thyroid storm. Patient was started on fludrocortisone and 20mg propranolol TID. She reports this regimen has helped the most but she continues to have varying BP with position changes and still needs a wheelchair for any long distances. [JM] 2206 WBC: 4.69 [JM] 2206 Hemoglobin: 11.8 [JM] 2206 Glucose(!): 100 [JM] 2206 Creatinine: 0.89 [JM] 2206 Free T4(!): 2.4 [JM] 2206 TSH(!): <0.01 [JM] 2206 Phosphorus: 3.5 [JM] 2206 Test: Negative [JM] 2206 Troponin T, High Sensitivity, 0 Hour: <6 [JM] 2207 XR Chest 1 View Without pulmonary edema [JM] 2207 20 points on BWPS scale, though this may be confounded by patient propranolol use [JM] 2208 EKG now - STAT (adult) NSR without stemi or arrhythmia, single PVC noted [JM] 2221 I did discuss with endocrinology provider occupational therapy specialist- at her current T4 level they would not recommend adjustments of her medication, impression that her current presentation does not represent thyroid storm and she would be appropriate for outpatient management. She will have redrawn labs next week. [JM] ED Course User Index [JM] Allison Keller MD Clinical Impressions as of 11/20/24 2336 Palpitations Social Determinates of Health Risks (including Economic Stability, Education and level of understanding, Healthcare access and quality and concerning social factors): Lives far away Ultimately, this patient was Was discharged Home ED Prescriptions None - [1] Past Medical History: Diagnosis Date Anemia Anxiety GERD (gastroesophageal reflux disease) Gilbert syndrome 2019 Peptic ulceration POTS (postural orthostatic tachycardia syndrome) 01/2024 Urinary tract infection [2] Past Surgical History: Procedure Laterality Date CHOLECYSTECTOMY 07/2023 DILATION AND CURETTAGE OF UTERUS HAND SURGERY 07/2022 TONSILLECTOMY 2001 [3] Family History Problem Relation Name Age of Onset Autoimmune disease Mother Avril fagan Heart failure Father Hypertension Father Autoimmune disease Brother Tristan fagan Cancer Maternal Grandmother Melania sheridan Asthma Child Anesthesia problems Neg Hx Malig Hyperthermia Neg Hx [4] Tobacco Use Smoking status: Former Current packs/day: 0.00 Types: Cigarettes Quit date: 2021 Years since quittin.3 Smokeless tobacco: Former Tobacco comments: History of vaping after cigarettes. Stopped when she found out she was Vaping Use Vaping status: Never Used Substance Use Topics Alcohol use: Never Drug use: Never [5] Allergies Allergen Reactions Amoxicillin-Pot Clavulanate Other - please document in the comment field, Rash and Swelling Cinnamon Other - please document in the comment field Penicillin G Swelling Betamethasone Dipropionate (Augmented) [Betamethasone] Other - please document in the comment field Patient states she has not had a reaction to this. Penicillins Other - please document in the comment field Allison Keller MD Resident 11/21/24 0023 Cosigned by Leo Souza MD at 11/23/2024 10:40 AM EDT Associated attestation - Leo Souza MD - 11/23/2024 10:40 AM EDT I saw and evaluated the patient with the resident/fellow. I discussed the case with the resident/fellow and agree with the findings and plan as documented. * ED Triage Notes - Marcio Frost RN - 11/20/2024 8:36 PM EDT Pt states she thinks she is going into a thyroid storm, pt states she was discharged from ICU 2 weeks ago with this. Pt c/o palpitations, diarrhea, and weakness. documented in this encounter Plan of Treatment Upcoming Encounters Date Type Department Care Team (Late st Contact Info) Description 01/17/2025 7:00 AM EDT Appointment [facility] End[facility] [address] [place] [address] Cody Barnett MD [address] [place] [address] 02/10/2025 10:00 AM EDT Office Visit Luly Tatum [facility] Endocrinology [address] [place] [id number] Rachel Khan PA [address] [facility] [address] [place] [address] 02/16/2025 1:20 PM EDT Office Visit [facility] [place] [facility] [address], [address] [place] [address] Courtney Torres MD [address] [place] [address] 03/15/2025 3:30 PM EDT Consult [facility] [address] [place] [address] Kendy Sanchez APRN [address] [place] [address] 04/17/2025 2:00 PM EDT Office Visit [facility] Medicine Specialties [address] [place] [address] Silverio Tam PA [address] [place] [address] Scheduled Orders Name Type Priority Associated Diagnoses Orde r Schedule Comprehensive GI Panel by PCR Microbiology STAT STAT (Lab) for 1 Occurrences starting 11/20/2024 until 11/20/2024 documented as of this encounter Goals Goal Patient Goal Type Associated Problems Recent Progress Patient-Stated? Author Delayed Delivery Care Plan CPM S22 PP LABOR (OBSTETRICS) No Open Scheduling, Background documented as of this encounter Procedures Procedure Name Priority Date/Time Associated Diagnosis Comments XR CHEST 1 VIEW STAT 11/20/2024 9:43 PM EDT TROPONIN T, HIGH SENSITIVITY, 0 HOUR, PLASMA, REFLEX TO 2 HOUR STAT 11/20/2024 9:17 PM EDT CBC W/O DIFFERENTIAL STAT 11/20/2024 9:17 PM EDT TEST QUALITATIVE PLASMA STAT 11/20/2024 9:17 PM EDT TSH STAT 11/20/2024 9:17 PM EDT FREE T4, PLASMA STAT 11/20/2024 9:17 PM EDT PHOSPHORUS, PLASMA STAT 11/20/2024 9: 17 PM EDT MAGNESIUM, PLASMA STAT 11/20/2024 9:1 7 PM EDT BLOOD GAS PANEL, VENOUS STAT 11/20/2024 9:17 PM EDT COMPREHENSIVE METABOLIC PANEL, PLASMA STAT 11/20/2024 9:17 PM EDT ECG ADULT STAT 11/20/2024 8:52 PM EDT documented in this encounter Results * XR Chest 1 View (11/20/2024 9:43 PM EDT) Anatomical Region Laterality Modality Chest Digital Radiogra phy Impressions 11/20/2024 9:49 PM EDT No acute focal airspace consolidation. CRITICAL RESULT: No. COMMUNICATION: Per this written report. Drafted by Aly Posada MD on 11/20/2024 9:48 PM Final report signed by Aly Posada MD on 11/20/2024 9:49 PM Narrative 11/20/2024 9:49 PM EDT CLINICAL INDICATION: palpitations TECHNIQUE: XR CHEST 1 VIEW COMPARISON: 07/06/2024. FINDINGS: No acute focal airspace consolidation. No pneumothorax. Cardiomediastinal silhouette is grossly within normal limits. No acute osseous abnormality. Procedure Note Aly Posada MD - 11/20/2024 CLINICAL INDICATION: palpitations TECHNIQUE: XR CHEST 1 VIEW COMPARISON: 07/06/2024. FINDINGS: No acute focal airspace consolidation. No pneumothorax. Cardiomediastinalsilhouette is grossly within normal limits. No acute osseousabnormality. IMPRESSION: No acute focal airspace consolidation. CRITICAL RESULT: No. COMMUNICATION: Per this written report. Drafted by Aly Posada MD on 11/20/2024 9:48 PM Final report signed by Aly Posada MD on 11/20/2024 9:49 PM Radha Trujillo DO IMG XR PROCEDURES Final Resul t * CBC (11/20/2024 9:17 PM EDT) WBC Count 4.69 3.70 - 10.30 10*3/uL LAB HEMATOLOGY METHOD 11/20/2024 9:23 PM EDT [facility] RBC Count 4.26 3.90 - 5.20 10*6/uL LAB HEMATOLOGY METHOD 11/20/2024 9:23 PM EDT [facility] HGB 11.8 11.2 - 15.7 g/dL LAB HEMATOLOGY METHOD 11/20/2024 9:23 PM EDT [facility] HCT 35.8 34.0 - 45.0 % LAB HEMATOLOGY METHOD 11/20/2024 9:23 PM EDT [facility] Platelet Count 197 155 - 369 10*3/uL LAB HEMATOLOGY METHOD 11/20/2024 9:23 PM EDT [facility] MCV 84 79 - 98 fL LAB HEMATOLOGY METHOD 11/20/2024 9:23 PM EDT [facility] MCH 27.7 26.0 - 32.0 pg LAB HEMATOLOGY METHOD 11/20/2024 9:23 PM EDT [facility] MCHC 33.0 30.7 - 35.5 g/dL LAB HEMATOLOGY METHOD 11/20/2024 9:23 PM EDT [facility] RDW 12.5 11.5 - 14.5 % LAB HEMATOLOGY METHOD 11/20/2024 9:23 PM EDT [facility] MPV 11.6 8.8 - 12.5 fL LAB HEMATOLOGY METHOD 11/20/2024 9:23 PM EDT [facility] nRBC 0.0 <=0.0 per 100 WBCs LAB HEMATOLOGY METHOD 11/20/2024 9:23 PM EDT [facility] Blood Venous blood specimen / Unknown Venipuncture / Unknown 11/20/2024 9:17 PM EDT 11/20/2024 9:20 PM EDT us Radha Trujillo DO LAB BLOOD ORDERABLES Final Re sult [facility] [address] [place] [address] * (ABNORMAL) Blood gas panel, venous (11/20/2024 9:17 PM EDT) pH, Venous 7.38 7.32 - 7.43 LAB HEMATOLOGY METHOD 11/20/2024 9:21 PM EDT [facility] pCO2, Venous 44 37 - 52 mmHg LAB HEMATOLOGY METHOD 11/20/2024 9:21 PM EDT [facility] pO2, Venous 26 25 - 40 mmHg LAB HEMATOLOGY METHOD 11/20/2024 9:21 PM EDT [facility] SO2, Measured, Venous 44(L) 65 - 80 % LAB HEMATOLOGY METHOD 11/20/2024 9:21 PM EDT [facility] Base Excess, Venous 0.2 -2.0 - 3.0 mmol/L LAB HEMATOLOGY METHOD 11/20/2024 9:21 PM EDT [facility] Bicarbonate, Calculated, Venous 26 22 - 26 mmol/L LAB HEMATOLOGY METHOD 11/20/2024 9:21 PM EDT [facility] Hematocrit, Whole Blood 37.4 34.0 - 45.0 % LAB HEMATOLOGY METHOD 11/20/2024 9:21 PM EDT [facility] Sodium, Whole Blood 141 136 - 145 mmol/L LAB HEMATOLOGY METHOD 11/20/2024 9:21 PM EDT [facility] Potassium, Whole Blood 4.0 3.6 - 4.9 mmol/L LAB HEMATOLOGY METHOD 11/20/2024 9:21 PM EDT [facility] Chloride, Whole Blood 110(H) 97 - 107 mmol/L LAB HEMATOLOGY METHOD 11/20/2024 9:21 PM EDT [facility] Glucose, Whole Blood 98 74 - 99 mg/dL LAB HEMATOLOGY METHOD 11/20/2024 9:21 PM EDT [facility] Lactate, Venous, Whole Blood 1.0 0.5 - 2.2 mmol/L LAB HEMATOLOGY METHOD 11/20/2024 9:21 PM EDT [facility] Ionized Calcium, Whole Blood 4.8 4.6 - 5.1 mg/dL LAB HEMATOLOGY METHOD 11/20/2024 9:21 PM EDT [facility] Blood Venous blood specimen / Unknown Venipuncture / Unknown 11/20/2024 9:17 PM EDT 11/20/2024 9:20 PM EDT us Radha Trujillo DO LAB BLOOD ORDERABLES Final Re sult [facility] [address] [place] [address] * (ABNORMAL) Free T4, Plasma (11/20/2024 9:17 PM EDT) Free T4, Plasma 2.4(H) 0.8 - 1.7 ng/dL 11/20/2024 9:47 PM EDT [facility] Blood Venous blood specimen / Unknown Venipuncture / Unknown 11/20/2024 9:17 PM EDT 11/20/2024 9:20 PM EDT Narrative [facility] - 11/20/2024 9:47 PM EDT Free T4 Trimester Specific Ranges 1st Trimester 0.9 - 1.50 ng/dL 2nd Trimester 0.7 - 1.40 ng/dL 3rd Trimester 0.7 - 1.24 ng/dL [facility] LAB BLOOD ORDERABLES Final Re sult Performing Organization Address City/[facility]/ZIP Co de Phone Number [facility] [address] [place] [address] * (ABNORMAL) Thyroid Stimulating Hormone, Plasma (11/20/2024 9:17 PM EDT) Thyroid Stimulating Hormone, Plasma <0.01(L) 0.40 - 4.20 uIU/mL 11/20/2024 10:[address] [facility] Blood Venous blood specimen / Unknown Venipuncture / Unknown 11/20/2024 9:17 PM EDT 11/20/2024 9:20 PM EDT Narrative [facility] - 11/20/2024 10:02 PM EDT Trimester Specific Ranges TSH ( IU/mL) 1st Trimester 0.1 - 3.0 2nd Trimester 0.19 - 4.06 3rd Trimester 0.3 - 3.7 IKOTECH LAB BLOOD ORDERABLES Final Re sult [facility] [address] [place] [address] * Troponin now and 120 min (11/20/2024 9:17 PM EDT) Troponin T, High Sensitivity, 0 Hour <6 <14 ng/L 11/20/2024 9:47 PM EDT [facility] Blood Venous blood specimen / Unknown Venipuncture / Unknown 11/20/2024 9:17 PM EDT 11/20/2024 9:20 PM EDT us Plattica Flaca Mogujie DO LAB BLOOD ORDERABLES Final Re sult Performing Organization Address [facility]/ZIP Co de Phone Number [facility] [address] [place] [address] * Phosphorus (11/20/2024 9:17 PM EDT) Phosphorus, Plasma 3.5 2.5 - 4.5 mg/dL 11/20/2024 10:02 PM EDT [facility] Blood Venous blood specimen / Unknown Venipuncture / Unknown 11/20/2024 9:17 PM EDT 11/20/2024 9:20 PM EDT [employer] Radha Flaca Mogujie DO LAB BLOOD ORDERABLES Final Re sult Performing Organization Address [facility] Co de Phone Number [facility] [address] [place] [address] * Magnesium (11/20/2024 9:17 PM EDT) Magnesium, Plasma 2.1 1.9 - 2.4 mg/dL 11/20/2024 10:02 PM EDT [facility] Blood Venous blood specimen / Unknown Venipuncture / Unknown 11/20/2024 9:17 PM EDT 11/20/2024 9:20 PM EDT Novaled DO LAB BLOOD ORDERABLES Final Re sult Performing Organization Address [facility] Co de Phone Number [facility] [facility] [address] [place] [address] * (ABNORMAL) CMP (11/20/2024 9:17 PM EDT) Glucose, Plasma 100(H) 74 - 99 mg/dL 11/20/2024 10:02 PM EDT [facility] BUN, Plasma 12 7 - 21 mg/dL 11/20/2024 10:02 PM EDT [facility] Creatinine, Plasma 0.89 0.60 - 1.10 mg/dL 11/20/2024 10:02 PM EDT [facility] BUN/Creatinine Ratio 13 11/20/2024 10:02 PM EDT [facility] Sodium, Plasma 143 136 - 145 mmol/L 11/20/2024 10:02 PM EDT [facility] Potassium, Plasma 4.2 3.6 - 4.9 mmol/L 11/20/2024 10:02 PM EDT [facility] Chloride, Plasma 106 97 - 107 mmol/L 11/20/2024 10:02 PM EDT [facility] CO2, Plasma 24 22 - 29 mmol/L 11/20/2024 10:02 PM EDT [facility] Anion Gap 13 6 - 16 mmol/L 11/20/2024 10:02 PM EDT [facility] Total Calcium, Plasma 9.8 8.9 - 10.2 mg/dL 11/20/2024 10:02 PM EDT [facility] Total Protein 7.4 6.3 - 7.9 g/dL 11/20/2024 10:02 PM EDT [facility] Albumin, Plasma 4.4 3.5 - 5.2 g/dL 11/20/2024 10:02 PM EDT [facility] AST, Plasma 13 10 - 35 U/L 11/20/2024 10:02 PM EDT [facility] ALT, Plasma 14 10 - 35 U/L 11/20/2024 10:02 PM EDT [facility] Alkaline Phosphatase, Plasma 53 35 - 104 U/L 11/20/2024 10:02 PM EDT [facility] Total Bilirubin, Plasma 1.0 0.2 - 1.1 mg/dL 11/20/2024 10:02 PM EDT [facility] eGFRcr 91.8 mL/min/1.7 3m*2 11/20/2024 10:02 PM EDT [facility] Comment:Reported eGFRcr in m L/min/1.73m2 is based the CKD-EPI 2020 equation that does not use a race coefficient. Blood Venous blood specimen / Unknown Venipuncture / Unknown 11/20/2024 9:17 PM EDT 11/20/2024 9:20 PM EDT us Radha L Mogujie DO LAB BLOOD ORDERABLES Final Re sult Performing Organization Address City/[facility]/ZIP Co de Phone Number [facility] [address] [place] [address] * hCG qualitative (11/20/2024 9:17 PM EDT) Test Negative Negative 11/20/2024 10:02 PM EDT [facility] Blood Venous blood specimen / Unknown Venipuncture / Unknown 11/20/2024 9:17 PM EDT 11/20/2024 9:20 PM EDT Narrative [facility] - 11/20/2024 10:02 PM EDT Reference Range: Males and non- females: Negative. us Novaled DO LAB BLOOD ORDERABLES Final Re sult Performing Organization Address [facility] Co de Phone Number [facility] [address] [place] [address] * EKG now - STAT (adult) (11/20/2024 8:52 PM EDT) EKG DIAGNOSIS CLASS Abnormal MUSE ECG Ventricular Rate 83 BPM MUSE ECG Atrial Rate 83 BPM MUSE ECG [place] Interval 128 ms MUSE ECG QRSD Interval 72 ms MUSE ECG QT Interval 342 ms MUSE ECG QTC Interval 401 ms MUSE ECG P [place] 60 degrees MUSE ECG R [place] 62 degrees MUSE ECG T Wave [place] 21 degrees MUSE ECG Diagnosis Sinus rhythm with occasional premature ventricular complexes MUSE ECG Diagnosis Cannot rule out Anterior infarct , age undetermined MUSE ECG Diagnosis Abnormal ECG MUSE ECG Diagnosis MUSE ECG Diagnosis Confirmed by Tay Barraza ([id number]) on 11/21/2024 1:40:03 PM MUSE ECG 11/20/2024 8:52 PM EDT 11/21/2024 1:40 PM EDT us Leo Souza MD ECG ORDERABLES Final Resu lt Performing Organization Address City/[facility]/ZIP Co de Phone Number MUSE ECG documented in this encounter Visit Diagnoses Diagnosis Palpitations- Primary documented in this encounter Administered Medications Inactive Administered Medications - up to 3 most recent administrations Medication Order MAR Action Action Date Dose Rate Site lactated Ringer's infusion 1,000 mL 1,000 mL, Intravenous, Once, 1 dose, On 11/20/24 at 2100, STAT New Bag 11/20/2024 9:23 PM EDT 1,000 mL ondansetron (Zofran) injection 4 mg 4 mg, Intravenous, Once, 1 dose, On 11/20/24 at 2100, STAT Given 11/20/2024 9:23 PM EDT 4 mg documented in this encounter Active and Recently Administered Medications Times are shown in EDT. Scheduled Medication Order 11/18/2024 11/19/2024 11/20/2024 lactated Ringer's infusion 1,000 mL (COMPLETED) 1,000 mL, Intravenous, Once, 1 dose, On 11/20/24 at 2100, STAT 2122 (New Bag - Prov ider: Jolene Veras, JANELL) ondansetron (Zofran) injection 4 mg (COMPLETED) 4 mg, Intravenous, Once, 1 dose, On 11/20/24 at 2100, STAT 2122 (Given - Provid er: Jolene Veras, JANELL) documented in this encounter Additional Health Concerns [...] documented as of this encounter Care Teams Bone Crusher Relationship Specialty Start Date End Date Rey Wyatt MD [address] [place] [address] PCP - General 11/16/24 Angela Oleary, RN [facility] Registered Nurse Cardiology 02/17/24 documented as of this encounter
--- OUTSIDE RECORDS SUMMARY | 2024-12-07 07:03 | XMS_ITS | Encounter Summary ---
Author Organization [facility] Address [address] [place] [address] Care Team Providers Care Assistant Scientist Name Role Phone Angela Oleary RN Unavailable Unavailable Rey Wyatt MD Primary Care Provider [phone] Reason for Referral * Imaging (Routine) - Closed Specialty Diagnoses / Procedures Referred By Mili joe Referred To Contact Gastroenterology Diagnoses Hematochezia Abdominal pain, epigastric Procedures Patency Capsule Silverio Tam PA [address] [place] [address] Phone: tel: fax: Referral ID Status Reason Start Date Expiration Date V isits Requested Visits Authorized [id number] Closed Specialty Services Required 10/17/2024 04/18/2026 1 1 Reason for Visit * Imaging (Routine) - Closed Specialty Diagnoses / Procedures Referred By Contac t Referred To Contact Gastroenterology Diagnoses Hematochezia Abdominal pain, epigastric Procedures Patency Capsule Silverio Tam PA [address] [place] [address] Phone: tel: fax: Referral ID Status Reason Start Date Expiration Date V isits Requested Visits Authorized [id number] Closed Specialty Services Required 10/17/2024 04/18/2026 1 1 Encounter Details Date Type Department Care Team (Latest Contact Info) Description 12/07/2024 7:03 AM EDT - 12/07/2024 11:59 PM EDT Hospital Encounter [facility] [address] [place] [address] Estuardo Jon MD [address] [place] [address] Diarrhea, unspecified type (Primary Dx); [...] often do you attend chur ch or gnosticist services? Never 02/22/2024 Do you belong to any clubs o r organizations such as religious groups, unions, fraternal or athletic groups, or [...] Recorded Patient Health Questionnaire-2 Score 0 12/15/2024 [facility] of Occupat ional [facility] - Occupational Stress Questionnaire Answer Date [...] in a half-way (including now)? No 02/09/2024 [place] Depression Scale Answer Date Recorded [place] Depression Scale Total 6 08/08/2024 The thought [...] drink first t casi in the morning (EYE-FARM MACHINERY MECHANIC) to steady your nerves or to get rid of a hangover? 0 07/16/2024 CAGE Questionnaire Score 0 024 Utilities Answer Date Recorded In the past 12 months has th e [employer], gas, oil, or water [employer] threatened to shut off services in your [...] capsule 1 07/18/2024 Blood Glucose Monitoring Suppl (Plastic LogicTouch Verio Reflect) w/Device kit 04/14/2024 busPIRone (Buspar) [...] mild pain. 30 tablet 1 07/18/2024 Lancets (Plastic LogicTouch Delica Plus [id number]) [facility] 04/14/2024 methIMAzole (Tapazole) 10 MG tablet Take 1 tablet by mouth daily. 60 tablet 11/11/2024 01/11/20 25 ondansetron (Zofran) 4 MG tablet Take 1 tablet (4 mg) by mouth every 8 (eight) hours if needed for nausea or vomiting. 3 tablet 5 07/18/2024 [employer] Verio test strip 1 each by Other [...] day. 30 tablet 1 07/18/2024 sodium chloride ([place] Nasal [place]) 0.65 % nasal spray Administer 1 spray [...] EDT Appointment [facility] [address] [place] [address] Cody Barnett MD [address] [facility] [address] [place] [address] 02/10/2025 10:00 AM EDT Office Visit [facility] Endocrinology [address] [place] [address] Rachel Khan PA [address] [place] [address] 02/16/2025 1:20 PM EDT Office Visit [facility] [place] [address] [facility], [address] [place] [address] Courtney Torres MD [address] [place] [address] 03/15/2025 3:30 PM EDT Consult [facility] [address], [address] [place] [address] Carlitasingh KendyTRISTAN [address] [place] [address] 04/17/2025 2:00 PM EDT Office Visit [facility] Medicine Specialties [address], [address] [place] [address] Silverio Tam PA [address] [place] [address] documented as of this encounter [...] documented as of this encounter Care Teams Assistant Scientist Relationship Specialty Start Date End Date Rey Wyatt MD [address] [place] [address] PCP - General 11/16/24 Angela Oleary, RN [facility] Registered Nurse Cardiology 02/17/24 documented as of this encounter
--- OUTSIDE RECORDS SUMMARY | 2024-12-15 14:30 | XMS_ITS | Encounter Summary ---
Author Organization [facility] Address [address] [place] [address] Care Team Providers Care Dining Room Maid Name Role Phone Angela Oleary RN Unavailable Unavailable Rey Wyatt MD Primary Care Provider [phone] Reason for Referral * Consultation (Routine) - Authorized Specialty Diagnoses / Procedures Referred By Mili joe Referred To Contact Diagnoses Abdominal pain, epigastric Diarrhea, unspecified type Postural orthostatic tachycardia syndrome (POTS) Hematochezia Silverio Tam PA [id number] [place] [address] Phone: tel: fax: Referral ID Status Reason Start Date Expiration Date V isits Requested Visits Authorized [id number] Authorized 12/15/2024 06/16/2026 1 1 Reason for Visit * Reason Comments Hematochezia Encounter Details Date Type Department Care Team (Late st Contact Info) Description 12/15/2024 2:30 PM EDT [facility] [address] [place] [address] [facility] [address] [facility] [address] [place] [address] Weight loss (Primary Dx); Abdominal [...] week 02/22/2024 How often do you attend [facility] or mormon services? Never 02/22/2024 Do you belong to any clubs o r organizations such as cheondoism groups, unions, fraternal or athletic groups, or [...] Patient Health Questionnaire-2 Score 0 12/15/2024 [facility] - Occupational Stress Questionnaire Answer Date [...] place to sleep or slept in a retirement (including now)? 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 0 07/16/2024 CAGE Questionnaire Score 0 024 Utilities Answer Date Recorded In the past 12 months has th e [employer], gas, oil, or water company threatened to [...] encounter Miscellaneous Notes * Progress Notes - Sivlerio Tam PA - 12/15/2024 2:30 PM EDT [...] disease. She is supposed also be seeing [facility] for her POTs; but may also [...] min Stress: No Stress Concern Present (02/22/2024) [facility] - Occupational Stress Questionnaire Feeling of Stress : Not at all Social Connections: Moderately Isolated (02/22/2024) Social Connection and Isolation Panel [NHANES] Frequency of Communication with Friends and Family: More than three times a week Frequency of Social Gatherings with Friends and Family: Once a week Attends Restorationism Services: Never Active Member of Clubs or [...] day before colonoscopy Blood Glucose Monitoring Suppl (Atigeo Verio Reflect) w/Device kit busPIRone (BUSPAR) 5 [...] mg, Oral, Every 6 hours PRN Lancets (SimbionixTouch Delica Plus [id number]) misc methIMAzole (TAPAZOLE) 10 mg, Oral, Daily ondansetron (ZOFRAN) 4 mg, Oral, Every 8 hours PRN ondansetron ODT (ZOFRAN-ODT) 4 mg, Oral, Every 8 hours PRN SimbionixTouch Verio test strip 1 each, As needed [...] tablet 1 tablet, Oral, Daily sodium chloride (Union Nasal Bailey) 0.65 % nasal spray 1 spray, Each [...] 04/26/2002 Influenza, injectable, quadrivalent, preservative free 04/29/2023 [employer] COVID-19 Vaccine (Blue Cap) 18+ 02/21/2021 MMR [...] EDT Appointment [facility] [address] [place] [address] Cody Barnett MD [address] [facility] [address] [place] [address] 02/10/2025 10:00 AM EDT Office Visit [facility] Endocr[facility]ology [address] [place] [address] Rachel Khan PA [address] [facility] [address] [place] [address] 02/16/2025 1:20 PM EDT Office Visit [facility] [place] [address] [facility], [address] [place] [address] Courtney Torres MD [address] [facility] [address] [place] [address] 03/15/2025 3:30 PM EDT Consult [facility] [address] [place] [address] Kendy Sanchez, WOUND CARE COORDINATOR [address] [place] [address] 04/17/2025 2:00 PM EDT Office Visit [facility] Medicine Specialties [address] [place] [address] Silverio Tam, PA [address] [place] [address] Scheduled Referrals Name Type Priority [...] Detected Not Detected 12/19/2024 2:26 PM EDT [facility] Blood Venous blood specimen / Unknown Venipuncture / Unknown 12/15/2024 3:29 PM EDT 12/15/2024 3:30 PM EDT Narrative [facility] - 12/19/2024 2:26 PM [...] ORDERABLES Final Res ult Performing Organization Address [facility] Co de Phone Number [facility] [address] [place] [address] * T3 (12/15/2024 3:29 PM EDT) Pathologist [facility] T3, Serum 177 87 - 187 ng/dL 12/15/2024 4:54 PM EDT [facility] Blood Venous blood specimen / Unknown Venipuncture / Unknown 12/15/2024 3:29 PM EDT 12/15/2024 3:30 PM EDT [facility]LE[facility] BLOOD ORDERABLES Final Res ult Performing Organization Address [facility] de Phone Number [facility] [address] [place] [address] * (ABNORMAL) CBC and Differential (12/15/2024 3:29 PM EDT) [facility] WBC Count 5.38 3.70 - 10.30 10*3/uL LAB HEMATOLOGY METHOD 12/15/2024 4:38 PM EDT [facility] RBC Count 4.81 3.90 - 5.20 10*6/uL LAB HEMATOLOGY METHOD 12/15/2024 4:38 PM EDT [facility] HGB 12.6 11.2 - 15.7 g/dL LAB HEMATOLOGY METHOD 12/15/2024 4:38 PM EDT [facility] HCT 39.7 34.0 - 45.0 % LAB HEMATOLOGY METHOD 12/15/2024 4:38 PM EDT [facility] Platelet Count 311 155 - 369 10*3/uL LAB HEMATOLOGY METHOD 12/15/2024 4:38 PM EDT [facility] MCV 83 79 - 98 fL LAB HEMATOLOGY METHOD 12/15/2024 4:38 PM EDT [facility] MCH 26.2 26.0 - 32.0 pg LAB HEMATOLOGY METHOD 12/15/2024 4:38 PM EDT [facility] MCHC 31.7 30.7 - 35.5 g/dL LAB HEMATOLOGY METHOD 12/15/2024 4:38 PM EDT [facility] RDW 12.2 11.5 - 14.5 % LAB HEMATOLOGY METHOD 12/15/2024 4:38 PM EDT [facility] MPV 11.2 8.8 - 12.5 fL LAB HEMATOLOGY METHOD 12/15/2024 4:38 PM EDT [facility] nRBC 0.0 <=0.0 per 100 WBCs LAB HEMATOLOGY METHOD 12/15/2024 4:38 PM EDT [facility] Differential Type Automated LAB HEMATOLOGY METHOD 12/15/2024 4:38 PM EDT [facility] Neutrophils % 61 % LAB HEMATOLOGY METHOD 12/15/2024 4:38 PM EDT [facility] Lymphocytes % 32 % LAB HEMATOLOGY METHOD 12/15/2024 4:38 PM EDT [facility] Monocytes % 5 % LAB HEMATOLOGY METHOD 12/15/2024 4:38 PM EDT [facility] Eosinophils % 1 % LAB HEMATOLOGY METHOD 12/15/2024 4:38 PM EDT [facility] Basophils % 1 % LAB HEMATOLOGY METHOD 12/15/2024 4:38 PM EDT [facility] Immature Granulocytes % 0 % LAB HEMATOLOGY METHOD 12/15/2024 4:38 PM EDT [facility] Neutrophils Absolute 3.33 1.60 - 6.10 10*3/uL LAB HEMATOLOGY METHOD 12/15/2024 4:38 PM EDT [facility] Lymphocytes Absolute 1.70 1.20 - 3.90 10*3/uL LAB HEMATOLOGY METHOD 12/15/2024 4:38 PM EDT [facility] Monocytes Absolute 0.25(L) 0.30 - 0.90 10*3/uL LAB HEMATOLOGY METHOD 12/15/2024 4:38 PM EDT [facility] Eosinophils Absolute 0.03 0.00 - 0.50 10*3/uL LAB HEMATOLOGY METHOD 12/15/2024 4:38 PM EDT [facility] Basophils Absolute 0.05 0.00 - 0.10 10*3/uL LAB HEMATOLOGY METHOD 12/15/2024 4:38 PM EDT [facility] Immature Granulocytes Absolute 0.02 0.00 - 0.06 10*3/uL LAB HEMATOLOGY METHOD 12/15/2024 4:38 PM EDT [facility] Blood Venous blood specimen / Unknown Venipuncture / Unknown 12/15/2024 3:29 PM EDT 12/15/2024 3:30 PM EDT Narrative [facility] - 12/15/2024 4:38 PM EDT Therapeutic decision making should be based on absolute values, rather than percentages. us [facility] BLOOD ORDERABLES Final Res ult [facility] [address] [place] [address] * (ABNORMAL) Comprehensive Metabolic Panel, Plasma (12/15/2024 3:29 PM EDT) Glucose, Plasma 84 74 - 99 mg/dL 12/15/2024 4:54 PM EDT [facility] BUN, Plasma 8 7 - 21 mg/dL 12/15/2024 4:54 PM EDT [facility] Creatinine, Plasma 0.60 0.60 - 1.10 mg/dL 12/15/2024 4:54 PM EDT [facility] BUN/Creatinine Ratio 13 12/15/2024 4:54 PM EDT [facility] Sodium, Plasma 140 136 - 145 mmol/L 12/15/2024 4:54 PM EDT [facility] Potassium, Plasma 4.1 3.6 - 4.9 mmol/L 12/15/2024 4:54 PM EDT [facility] Chloride, Plasma 105 97 - 107 mmol/L 12/15/2024 4:54 PM EDT [facility] CO2, Plasma 21(L) 22 - 29 mmol/L 12/15/2024 4:54 PM EDT [facility] Anion Gap 14 6 - 16 mmol/L 12/15/2024 4:54 PM EDT [facility] Total Calcium, Plasma 9.4 8.9 - 10.2 mg/dL 12/15/2024 4:54 PM EDT [facility] Total Protein 8.1(H) 6.3 - 7.9 g/dL 12/15/2024 4:54 PM EDT [facility] Albumin, Plasma 4.6 3.5 - 5.2 g/dL 12/15/2024 4:54 PM EDT [facility] AST, Plasma 16 10 - 35 U/L 12/15/2024 4:54 PM EDT [facility] ALT, Plasma 23 10 - 35 U/L 12/15/2024 4:54 PM EDT [facility] Alkaline Phosphatase, Plasma 58 35 - 104 U/L 12/15/2024 4:54 PM EDT [facility] Total Bilirubin, Plasma 0.7 0.2 - 1.1 mg/dL 12/15/2024 4:54 PM EDT [facility] eGFRcr 127.1 mL/min/1.7 3m*2 12/15/2024 4:54 PM EDT [facility] Comment:Reported eGFRcr in m L/min/1.73m2 is based the CKD-EPI 2020 equation that does not use a race coefficient. Blood Venous blood specimen / Unknown Venipuncture / Unknown 12/15/2024 3:29 PM EDT 12/15/2024 3:30 PM EDT us [facility] BLOOD ORDERABLES Final Res ult [facility] [address] [place] [address] * Prothrombin Time/INR (12/15/2024 3:29 PM EDT) Prothrombin Time 13.7 12.0 - 14.3 sec LAB COAGULATION METHOD 12/15/2024 5:05 PM EDT [facility] INR 1.0 0.9 - 1.1 LAB COAGULATION METHOD 12/15/2024 5:05 PM EDT [facility] Blood Venous blood specimen / Unknown Venipuncture / Unknown 12/15/2024 3:29 PM EDT 12/15/2024 3:30 PM EDT Narrative [facility] - 12/15/2024 5:05 PM EDT OPTIMAL INR RANGES FOR PATIENT ON ORAL ANTICOAGULANT THERAPY Prevention of venous thromboembolism INR 2.0 to 3.0 In patients with heart disease: Atrial fibrillation INR 2.0 to 3.0 Valvular heart disease INR 2.0 to 3.0 Tissue heart valves INR 2.0 to 3.0 Mechanical prosthetic valves INR 2.5 to 3.5 Prevention of recurrent PR INR 2.5 to 3.5 [facility] BLOOD ORDERABLES Final Res ult Performing Organization Address City/[facility]/ZIP Co de Phone Number [facility] [address] [place] [address] * (ABNORMAL) Brayan Henson IgG Ab (12/15/2024 3:29 PM EDT) EBV ANTIBODY TO VIRAL CAPSID ANTIGEN IGG 185.0(H) 0.0 - 21.9 U/mL 12/18/2024 11:11 AM EDT [facility]) Blood Venous blood specimen / Unknown Venipuncture / Unknown 12/15/2024 3:29 PM EDT 12/15/2024 3:30 PM EDT Narrative [facility]) - 12/18/2024 11:11 AM EDT INTERPRETIVE INFORMATION: Brayan-Henson Virus Antibody to Viral Capsid Antigen, IgG 17.9 U/mL or less.......Not Detected 18.0-21.9 U/mL..........Indeterminate - Repeat testing in 10-14 days may be helpful. 22.0 U/mL or greater....Detected Performed By: [facility] [address] [place] [address] Duty Officer: Wilber Pardo MD, PhD CLIA Number: [id number] [facility] BLOOD ORDERABLES Final Res ult Performing Organization Address City/[facility]/ZIP Co de Phone Number [facility]) [address] [place] [address] * Brayan-Henson virus VCA, IgM (12/15/2024 3:29 [...] helpful. 44.0 U/mL or greater....Detected Performed By: [facility] [address] [place] [address] Duty Officer: Wilber Pardo MD, PhD CLIA Number: [id number] us [facility] BLOOD ORDERABLES Final Res ult [facility]) [address] [place] [address] documented in this encounter Visit Diagnoses Diagnosis [...] documented as of this encounter Care Teams Dining Room Maid Relationship Specialty Start Date End Date Rey Wyatt MD [address] [facility] [address] [place] [address] PCP - General 11/16/24 Angela Oleary, RN [facility] Registered Nurse Cardiology 02/17/24 documented as of this encounter
--- OUTSIDE RECORDS SUMMARY | 2025-01-06 11:15 | XMS_ITS | Data Portability ---
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 Plan of Treatment Reminders Order Date Submit Date Provider Last Modified By Organization Details Last Modified Time Details Appointments MENTAL HEALTH 60 2024 03:00P M FLAVIA KIRBY Not available Not available Not available Lab urinalysi s, dipstick 2023 024 [email or web address] [facility]- Floor 2, [address], [address], [address], [place], [address], 12/14/2023 13:09:11 culture, urine 2023 024 KEATON [facility], [address] [place] [address] [place], [address], 12/14/2023 19:07:28 Referral behaviora health referral - Anxiety not respondin g to buspirone . patient. Counselin g and medicatio n managemen t. 2023 024 KEATON [facility], [address] [place], [address], 04/05/2024 14:52:37 dermatolo gist referral 2023 024 [email or web address] [facility], [address] [place] [address], [address], 10/20/2023 12:02:18 Procedures None recorded. Surgeries None recorded. Imaging None recorded. Medication Orders doxylamin e 10 mg-pyrido xine (vit B6) 10 mg tablet,de layed release [address] [facility], [address] [place] [address] [address], [place], [place], [id number], 12/14/2023 11:36:15 cephalexi n 500 mg tablet [address] [facility], [address] [place] [address] [address], [place], [place], [id number], 02/02/2024 08:44:10 ondansetr on 4 mg disintegr ating tablet 2023 024 [facility], [address] [place] [address] [address], [place], [place], [id number], 12/14/2023 11:38:18 labetalol 100 mg tablet 2023 024 [facility], [address] [place] [address] [address], [place], [place], [id number], 02/02/2024 08:44:37 Patient TargetsNo targets recorded. Patient Instructions Encounter Date Encounter Id Patient Instructions Last Modified By Organization Details Last Modified Time 09/22/2023 [id number] Follow-up for yearly exam 02/2024 and prn [email or web address] Not available 09/22/2023 18:44:56 12/14/2023 [id number] Follow-up prn [email or web address] Not available 12/14/2023 21:37:32 02/02/2024 [id number] Follow-up prn (patient's current symptoms to be managed by cardiology and OB/MFM). 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 patient. Counseling and medication management. Referring Physician: Molly Bolton [facility], Encounter Date: 03/22/2024 Results Created Date Observation Date Name Description Value Unit Range Abnormal Flag Note LastModifiedBy Organization Detail LastModifiedTime 12/02/19 24 12/02/2023 HCG BETA QUANT ITATI VE beta HCG 507 mIU/m L -5 high INTER PRETA TION* mIU/m L <5 NEGAT AMARIS 5 - 50 1 - 7 DAYS 50 - 500 1 - 2 WEEKS 100 - 5,000 2 - 3 WEEKS 500 - 10,00 0 3 - 4 WEEKS 1,000 - 50,00 0 4 - 5 WEEKS 10,00 0 - 100,0 00 5 - 6 WEEKS 15,00 0 - 200,0 00 6 - 8 WEEKS 10,00 0 - 100,0 00 2 - 3 MONTH S Not Available [facility] (Pre-Op Clinic) [address] [place] [address] [place], [address], 12/02/2023 17:18:42 12/02/19 24 12/02/2023 HCG BETA QUANT ITATI VE note Unles s other juan noted testi ng perfo rmed at: [facility] [address] [place] [address] Micah plascencia MD Not Available [facility] (Pre-Op Clinic) [address] [place] [address] [place], [address], 12/02/2023 17:18:42 12/14/19 24 12/14/2023 CULTU RE URINE W PRESU MP ID results [facility] 12-14 912 No Signi fican t Growt h at 1 Day [facility] 12-15 711 No Signi fican t Growt h at 2 Days Not Available [facility] (Pre-Op Clinic) [address] [place], [address], 12/16/2023 07:13:14 12/14/19 24 12/14/2023 CULTU RE URINE W PRESU MP ID note Unles s other juan noted testi ng perfo rmed at: [facility] [address] [place] [address] Micah plascencia MD Not Available [facility] (Pre-Op Clinic) [address] [place] [address] [place], [address], 12/16/2023 07:13:14 12/14/19 24 12/14/2023 urina lysis , dipst ick Leukocytes (reference range) small Not Available [facility]- Floor 2, [address] [facility] [address] [place] [address], [address], 12/14/2023 11:20:55 12/14/19 24 12/14/2023 urina lysis , dipst ick Nitrite (reference range:) negati ve Not Available [facility]- Floor 2, [address] [facility] [address] [place] [address], [address], 12/14/2023 11:20:55 12/14/19 24 12/14/2023 urina lysis , dipst ick Urobilinogen (reference range) 0.2 Not Available [facility]- Floor 2, [address] [place] [address], [phone], 12/14/2023 11:20:55 12/14/19 24 12/14/2023 urina lysis , dipst ick Protein (reference range) 30 Not Available [facility]- Floor 2, [address] [facility] [address] [place] [address], [phone], 12/14/2023 11:20:55 12/14/19 24 12/14/2023 urina lysis , dipst ick pH (reference range 5-8.5) 5.5 Not Available [facility]- Floor 2, [address], [place], [address], 12/14/2023 11:20:55 12/14/19 24 12/14/2023 urina lysis , dipst ick Blood (reference range:) negati ve Not Available [facility]- Floor 2, [address], [place], [address], 12/14/2023 11:20:55 12/14/19 24 12/14/2023 urina lysis , dipst ick Specific [place] (reference range) 1.030 Not Available [facility]- Floor 2, [address] [facility], [place], [address], 12/14/2023 11:20:55 12/14/19 24 12/14/2023 urina lysis , dipst ick Ketone (reference range) modera te Not Available [facility]- Floor 2, [address] [facility], [place], [address], 12/14/2023 11:20:55 12/14/19 24 12/14/2023 urina lysis , dipst ick Bilirubin (reference range) small Not Available [facility]- Floor 2, [address] [facility], [place], [address], 12/14/2023 11:20:55 12/14/19 24 12/14/2023 urina lysis , dipst ick Glucose (reference range) negati ve Not Available [facility]- Floor 2, [address] [facility], [place], [address], 12/14/2023 11:20:55 12/14/19 24 12/14/2023 urina lysis , dipst ick Color (reference range: yellow-brown ) Brown Not Available [facility]- Floor 2, [address] [facility], [place], [address], 12/14/2023 11:20:55 11/20/19 24 11/20/2023 CT, abdom en + pelvi s, w/ contr ast No observ ation record ed. [address] Registration [address] [place] [address] [place], [address], 11/20/2023 22:38:19 01/12/20 24 01/12/2024 XR, chest No observ ation record ed. [address] (Registration ) [address] [place] [address] [place], [address], 01/12/2024 13:53:47 01/12/20 24 01/12/2024 US, obste tric No observ ation record ed. [address] (Registration ) [address] [place] [address] [place], [address], 01/12/2024 17:05:57 01/20/20 24 01/20/2024 elect rocar diogr am No observ ation record ed. [email or web address] [address] [facility] [place], [address], 01/21/2024 12:30:49 01/22/20 24 01/22/2024 imagi ng inter preta tion No observ ation record ed. [email or web address] [place] [address], [place], [address], 01/25/2024 11:42:05 01/22/20 24 01/22/2024 imagi ng inter preta tion No observ ation record ed. [email or web address] [facility] [address], [place], [address], 01/25/2024 11:41:58 02/06/20 24 02/05/2024 elect rocar diogr am, routi ne ECG, 12 leads min No observ ation record ed. [place] [id number], [place], [address], 02/07/2024 14:15:54 04/27/20 24 04/27/2024 rhyth m strip , EKG* No observ ation record ed. [email or web address] [facility] [address], [place], [address], 04/28/2024 15:07:12 07/27/19 25 07/27/2024 imagi ng inter preta tion No observ ation record ed. [email or web address] [facility] [address], [place], [place], [address], 07/28/2024 10:45:22 07/27/19 25 07/27/2024 elect harris chew am No observ ation record ed. [email or web address] [facility] [address], [place], [address], 07/28/2024 10:45:06 Result Notes None recorded. 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 Not Available [facility] 4 05:51:07 Sore throat 073075719 Active 2022 Not Available [facility] 4 05:51:07 Hematochezia 245028092 Active 2022 Not Available [facility] 4 05:51:07 Diarrhea 98829426 Active 2022 Not Available [facility] 4 05:51:07 Nausea 122792161 Active 2022 Not Available [facility] 4 05:51:07 Generalized abdominal pain 013476935 Active 2022 Not Available [facility] 4 05:51:07 Problem Notes None recorded. Procedures Surgical History Date Name Laterality Status Provider Name and Address Organization Details Recorded Time 07/31/19 24 laparoscopic cholecystectomy completed Teresa KRISHNAN - [facility] [place] 08/03/2023 09:25:16 11/09/19 23 Date of Last Pap Smear completed Deb Clark [place] - [facility] [place] 05/28/2023 14:21:22 07/27/19 23 Other completed Shani KRISHNAN - [facility] [place] 08/20/2023 13:45:01 03/03/20 22 EGD/Endoscopy completed Kymberly Gar [place] - [facility] [place] 05/19/2023 08:29:18 07/27/19 02 ENT Surgery completed Shani KRISHNAN - [facility] [place] 08/20/2023 13:45:01 07/27/19 01 ENT Surgery completed Shani Nailso [place] - [facility] [place] 08/20/2023 13:45:01 Tonsillectomy completed Shani KRISHNAN - [facility] [place] 07/08/2023 12:32:45 Dilation and Curettage completed Deb KRISHNAN - [facility] [place] 01/26/2024 09:25:24 Imaging Results None recorded. Procedure Notes None recorded. Medical Equipment None Reported. Allergies Allergen ID Allergen Name Allergen Category Reaction Reaction Severity Criticality Documentation Date Start Date Code Code System Note Provider Name and Address Organization Details Recorded Time 912393 cinnamon preparati on food,medi cation other severe Not available 12/09/2023 61093 5 RxNorm throa t aurelio s Deb Clark null, [place] - [facility] [place] 4 09:50:32 68012 Augmentin medicatio n rash Not available Not available 09/18/2022 94583 2 RxNorm Anmol Pelayo null, [place] - [facility] [place] 3 12:59:17 24371 Product containin g penicilli n (product) medicatio n Not available Not available Not available 09/18/2022 86027 8001 SNOMED Anmol Pelayo null, [place] - [facility] [place] [facility] [place] 3 12:59:25 Medications Name Sig Start Date Stop Date Status Note LastModified by Organization Details LastModified Time buspirone 5 mg tablet TAKE ONE TABLET BY MOUTH AT BEDTIME active Not Available Not Available No t Available terbinafine HCl 1 % topical cream 02/10 completed Not Available Not Available Not Available promethazin e-DM 6.25 mg-15 mg/5 mL oral syrup 07/08 completed Not Available Not Available Not Available acetaminoph en 325 mg tablet active Not Available Not Available Not Available loperamide 2 mg capsule 03/22 completed Not Available Not Available Not Available glycopyrrol ate 0.2 mg/mL injection solution 0.2 mg by injection route. 07/31 completed Not Available Not Available Not Available cetirizine 10 mg tablet 01/21 completed Not Available Not Available Not Available azithromyci n 250 mg tablet 09/22 completed Not Available Not Available Not Available fluconazole 150 mg tablet Take 1 tablet every week by oral route. 03/22 completed Not Available Not Available Not Available valacyclovi r 1 gram tablet 01/21 completed Not Available Not Available Not Available prochlorper azine maleate 5 mg tablet 03/22 completed Not Available Not Available Not Available ondansetron HCl 8 mg tablet 01/21 completed Not Available Not Available Not Available meloxicam 15 mg tablet Take 1 tablet every day by oral route. 11/26 completed Not Available Not Available Not Available promethazin e 12.5 mg tablet 03/22 completed Not Available Not Available Not Available Diprivan 10 mg/mL intravenous emulsion 200 mg by intraven. route. 07/31 completed Not Available Not Available Not Available ondansetron HCl 4 mg tablet Take 1 tablet by oral route. active Not Available Not Available No t Available prednisone 20 mg tablet 01/21 completed Not Available Not Available Not Available midodrine 5 mg tablet active Not Available Not Available No t Available rocuronium 10 mg/mL intravenous solution 100 mg by intraven. route. 07/31 completed Not Available Not Available Not Available valacyclovi r 500 mg tablet active Not Available Not Available Not Available ciprofloxac in 500 mg tablet 01/21 completed Not Available Not Available Not Available cyproheptad ine 4 mg tablet 03/22 completed Not Available Not Available Not Available meloxicam 7.5 mg tablet Take 1 tablet every day by oral route as needed. 03/22 completed Not Available Not Available Not Available oxycodone-a cetaminophe n 5 mg-325 mg tablet 1 tablet by oral route. 08/13 completed Not Available Not Available Not Available propranolol 10 mg tablet active Not Available Not Available Not Available famotidine 20 mg tablet active Not Available Not Available Not Available amitriptyli ne 10 mg tablet Take 2 tablets every day by oral route. 03/22 completed Not Available Not Available Not Available sodium bicarbonate 650 mg tablet 03/22 completed Not Available Not Available Not Available meclizine 25 mg tablet active Not Available Not Available Not Available benzonatate 100 mg capsule 04/29 completed Not Available Not Available Not Available hydrocodone 7.5 mg-acetamin ophen 325 mg tablet 01/21 completed Not Available Not Available Not Available cephalexin 500 mg capsule 02/01 completed Not Available Not Available Not Available pantoprazol e 40 mg tablet,neena yed release 03/22 completed Not Available Not Available Not Available oseltamivir 75 mg capsule 04/29 completed Not Available Not Available Not Available clotrimazol e-betametha sone 1 %-0.05 % topical cream APPLY TO THE AFFECTED AND SURROUNDI NG AREAS OF SKIN BY TOPICAL ROUTE 2 TIMES PER DAY IN THE MORNING AND EVENING FOR 4 WEEKS 02/01 completed Not Available Not Available Not Available promethazin e 25 mg/mL injection solution 12.5 mg by injection route. 07/31 completed Not Available Not Available Not Available fentanyl (PF) 50 mcg/mL injection solution 100 microgram s by injection route. 07/31 completed Not Available Not Available Not Available docusate sodium 100 mg capsule 02/10 completed Not Available Not Available Not Available pyridoxine (vitamin B6) 50 mg tablet 03/22 completed Not Available Not Available Not Available diclofenac sodium 75 mg tablet,neena yed release 03/22 completed Not Available Not Available Not Available cephalexin 500 mg tablet Take 1 tablet twice a day by oral route for 7 days. 02/01 completed Not Available Not Available Not Available hydroxyzine HCl 25 mg tablet 03/22 completed Not Available Not Available Not Available metoprolol succinate ER 25 mg tablet,exte nded release 24 hr active Not Available Not Available Not Available dexamethaso ne sodium phosphate 4 mg/mL injection solution 4 mg by injection route. 07/31 completed Not Available Not Available Not Available ibuprofen 600 mg tablet active Not Available Not Available Not Available polyethylen e glycol 3350 17 gram/dose oral powder Take 17 g by oral route as directed for 2 days. 03/22 completed Not Available Not Available Not Available methylpredn isolone 4 mg tablets in a dose pack 07/08 completed Not Available Not Available Not Available labetalol 100 mg tablet Take 1 tablet twice a day by oral route for 30 days. 02/01 completed Not Available Not Available Not Available methimazole 10 mg tablet Take 1 tablet by mouth daily. active Not Available Not Available No t Available propranolol 20 mg tablet TAKE 1 AND 1/2 TABLET BY MOUTH THREE TIMES DAILY active Not Available Not Available No t Available bromphenira mine-pseudo ephedrine-D M 2 mg-30 mg-10 mg/5 mL oral syrup 09/22 completed Not Available Not Available Not Available ondansetron 4 mg disintegrat ing tablet Place 1 tablet every 8 hours by transling ual route as needed. active Not Available Not Available No t Available cefdinir 300 mg capsule TAKE ONE CAPSULE BY MOUTH EVERY TWELVE HOURS FOR 10 DAYS active Not Available Not Available No t Available fluticasone propionate 50 mcg/actuati on nasal spray,suspe nsion USE 1 SPRAY IN EACH NOSTRIL ONCE DAILY active Not Available Not Available No t Available fludrocorti sone 0.1 mg tablet TAKE ONE TABLET BY MOUTH EVERY DAY active Not Available Not Available No t Available loratadine 10 mg tablet TAKE ONE TABLET BY MOUTH ONCE DAILY active Not Available Not Available No t Available simethicone 80 mg chewable tablet active Not Available Not Available Not Available midazolam 1 mg/mL injection solution 2 mg by injection route. 07/31 completed Not Available Not Available Not Available Laxative (bisacodyl) 5 mg tablet,neena yed release Take 2 tablets by oral route as directed for 1 day. active Not Available Not Available No t Available enoxaparin 40 mg/0.4 mL subcutaneou s syringe active Not Available Not Available No t Available hydromorpho ne 1 mg/mL injection syringe 1 mg by injection route. 07/31 completed Not Available Not Available Not Available fentanyl (PF) 50 mcg/mL injection syringe 25 microgram s by injection route. 07/31 completed Not Available Not Available Not Available escitalopra m 10 mg tablet 03/22 completed Not Available Not Available Not Available Saline Nasal 0.65 % spray aerosol active Not Available Not Available Not Available cyclobenzap rine 5 mg tablet 01/21 completed Not Available Not Available Not Available bupropion HCl XL 150 mg 24 hr tablet, extended release 02/10 completed Not Available Not Available Not Available metoprolol tartrate 25 mg tablet 03/22 completed Not Available Not Available Not Available Sleep Aid (doxylamine ) 25 mg tablet 03/22 completed Not Available Not Available Not Available Demerol (PF) 25 mg/mL injection syringe 25 mg by injection route. 07/31 completed Not Available Not Available Not Available cefdinir 08/13 completed Not Available Not Available Not Available sodium chloride 1,000 mg soluble tablet TAKE ONE TABLET BY MOUTH TWICE DAILY DIRECTED active Not Available Not Available No t Available lidocaine (PF) 20 mg/mL (2 %) injection solution 5 mL by injection route. 07/31 completed Not Available Not Available Not Available doxylamine 10 mg-pyridoxi ne (vit B6) 10 mg tablet,neena yed release Take 2 tablets every day by oral route at bedtime. 2023 active Not Available Not Available Not Avai lable cholecalcif светлана (vitamin D3) 25 mcg (1,000 unit) tablet TAKE FOUR TABLETS BY MOUTH EVERY DAY active Not Available Not Available No t Available ondansetron HCl (PF) 4 mg/2 mL injection solution 4 mg by injection route. 07/31 completed Not Available Not Available Not Available FeroSul 325 mg (65 mg iron) tablet TAKE ONE TABLET BY MOUTH TWICE DAILY active Not Available Not Available No t Available cholecalcif светлана (vitamin D3) 10 mcg/mL (400 unit/mL) oral drops active Not Available Not Available N ot Available GaviLyte-G 236 gram-22.74 gram-6.74 gram-5.86 gram oral solution active Not Available Not Available Not Available Senexon-S 8.6 mg-50 mg tablet active Not Available Not Available No t Available 28 mg iron-800 mcg tablet active Not Available Not Available N ot Available OneTouch Verio test strips active Not Available Not Available Not Available Falmina (28) 0.1 mg-20 mcg tablet 01/21 completed Not Available Not Available Not Available Vitamins Plus Low Iron 27 mg iron-1 mg tablet active Not Available Not Available Not Available morphine 10 mg/mL intravenous syringe 5 mg by intraven. route. 07/31 completed Not Available Not Available Not Available Nuvessa 1.3 % (65 mg/5 gram) vaginal gel 03/22 completed Not Available Not Available Not Available ivabradine 5 mg tablet active Not Available Not Available Not Available hydromorpho ne 1 mg/mL injection solution 0.5 mg by injection route. 07/31 completed Not Available Not Available Not Available OneTouch Delica Plus Lancet 33 gauge active Not Available Not Available Not Available OneTouch Verio Reflect Meter active Not Available Not Available Not Available Vitals Date Recorded Body height Body mass index (BMI) Body weight Body temperature Oxygen saturation Oxygen saturation in Arterial blood by Pulse oximetry Heart rate Systolic blood pressure Diastolic blood pressure Provider Name and Address Organization Details Last Updated DateTime 4 162.56 cm 24.6 kg/m2 11677.1 5 g 98.2 [degF] 99 % 99 % 98 /min 110 mm[Hg] 80 mm[Hg] Francy Holland [place] - [facility] [place] [facility] [place] 4 15:41:55 Date Recorded Body height Body mass index (BMI) Body weight Body temperature Oxygen saturation Oxygen saturation in Arterial blood by Pulse oximetry Heart rate Systolic blood pressure Diastolic blood pressure Provider Name and Address Organization Details Last Updated DateTime 4 162.56 cm 23.6 kg/m2 03468.8 7 g 98.5 [degF] 97 % 97 % 88 /min 140 mm[Hg] 80 mm[Hg] Francy SUMMERS [facility] [place] 4 10:46:22 Date Recorded Body height Body mass index (BMI) Body weight Body temperature Oxygen saturation Oxygen saturation in Arterial blood by Pulse oximetry Heart rate Systolic blood pressure Diastolic blood pressure Provider Name and Address Organization Details Last Updated DateTime 4 162.56 cm 20.8 kg/m2 83100.6 8 g 98.6 [degF] 99 % 99 % 100 /min 110 mm[Hg] 70 mm[Hg] Francy SUMMERS [facility] [place] 4 08:35:15 Date Recorded Body height Body mass index (BMI) Body weight Body temperature Oxygen saturation Oxygen saturation in Arterial blood by Pulse oximetry Heart rate Systolic blood pressure Diastolic blood pressure Provider Name and Address Organization Details Last Updated DateTime 4 162.56 cm 20.4 kg/m2 34563.4 9 g 98.7 [degF] 100 % 100 % 76 /min 110 mm[Hg] 60 mm[Hg] Francy SUMMERS [facility] 4 08:35:40 Date Recorded Body height Body mass index (BMI) Body weight Body temperature Oxygen saturation Oxygen saturation in Arterial blood by Pulse oximetry Heart rate Systolic blood pressure Diastolic blood pressure Provider Name and Address Organization Details Last Updated DateTime 4 162.56 cm 20.8 kg/m2 52294.6 8 g 98.8 [degF] 99 % 99 % 98 /min 100 mm[Hg] 60 mm[Hg] Francy SUMMERS [facility] 4 09:07:24 Social History Question Answer Notes LastModified by Organizat ion Details LastModified Time Tobacco Smoking Status Former Smoker [place] [facility] [place] 03/17/2023 09:23:30 Do You Have An Advance Directive? No Information not available 05/28/2023 Are You Blind Or Do You Have Difficulty Seeing? No [email or web address] Information not available 05/28/2023 When Did You Quit Smoking? 1-5yearssinc [email or web address] te Information not available 08/13/2023 Are You Passively Exposed To Smoke? No [email or web address] Information not available 05/28/2023 How Many Years Have You Smoked Tobacco? 12 [email or web address] Information not available 03/17/2023 Sex: Female Functional Status Question Answer Note LastModified by Organizat ion Details LastModified Time Do you use any illicit or recreational drugs? No [email or web address] Information not available 03/17/2023 Do you or have you ever used any other forms of tobacco or nicotine? Yes Information not available 08/13/2023 What is your level of alcohol consumption? None [email or web address] Information not available 03/17/2023 Do you or have you ever used e-cigarettes or vape? Current user of electronic cigarettes Information not available 08/13/2023 What is your exercise level? Occasional [email or web address] Information not available 05/28/2023 Mental Status None recorded. Family History Relationship Description Onset Age of this Age Resolved Age Notes LastModified by Organization Details LastModified Time Father Family history of malignant neoplasm kidney cancer [email or web address] Not available 07/12/2024 08:20:21 Father Myocardial infarction 62 pt. added direct ly (04/28) [email or web address] Not available 08/20/2023 13:44:57 Brother Family history of Crohn's disease [email or web address] Not available 2023 08:20:21 Brother Autoimmune disease pt. added direct ly (04/28) [email or web address] Not available 04/28/2023 16:28:54 Mother Autoimmune disease pt. added direct ly (04/28) [email or web address] Not available 04/28/2023 16:28:41 Mother Disorder of thyroid gland Not available 2023 13:44:57 Mother Disease of liver [email or web address] Not available 2023 11:15:11 Sister Heart disease Not available 2023 13:44:57 Unspecified Relation Family history of stroke [email or web address] Not available 2023 08:20:21 Medical History Condition Response Coronary Artery Disease N None N Other Y Gout N Blood Diseases N Kidney Stones N Hyperthyroidism N Breast Cancer N Blood Transfusion N COPD N Depression N Hypothyroidism N Lung Disease N Defects or Inherited Disease N Developmental or Behavioral Disorders N Breast Problem N Difficulty Swallowing N Anesthesia Complications N Anxiety Disorder Y Meniere's disease N Muscle, Joint, or Bone Problems N Vision or Eye Problems N Arthritis N Infertility N Polyps N Cancer N Stroke N Varicosities N Endometriosis N Bladder or Kidney Problems N High Cholesterol N Liver Disease Y Headaches N Fibromyalgia N Kidney Disease N Allergies/Hayfever N Heart Problems N Ear or Hearing Problems N Hospitalizations N Thyroid Problems N GI Problems N ADD/ADHD N Eating Disorder N Skin Problems N Anemia N Constipation N Mental Illness N Diabetes N Ovarian Cancer N Bedwetting N Seizures/Epilepsy N Tuberculosis N Eczema N Back Problems Y Abuse/Domestic Violence N Diverticulitis N Asthma N Reflux/GERD N Jaundice N Sleep Apnea N Hepatitis N Heart Disease N Pulmonary Embolism N Chronic Ear Infections N Pre-Eclampsia N Hypertension N Chicken Pox N Autism Spectrum Disorder (ASD) N Osteoporosis N Thrombophilias N Gynecological History Statement/Question Response Abnormal Pap N Flow Heavy Date of LMP 04/23/2023 Sexually Active? Y Menses Monthly Y Duration of Flow (days) 28 Date of Last Pap Smear 11/08/2022 Sexual Problems? N Current Control Method None Age at Menarche 9 Age at First Child 16 Obstetrics History GPAL:G 5 P 0 0 3 2 Type Value Spontaneous 3 Living 2 Total 5 Immunizations Vaccine Type Date Status Note Provider Nam e and Address Organization Details Recorded Time IPV 2 completed Not Available [facility] 08/05/2023 05:51:08 MMR 2 completed Not Available [facility] 08/05/2023 05:51:08 COVID-19 vaccine, vector-nr, rS-Ad26, PF, 0.5 mL 1 completed Not Available [facility] 08/05/2023 05:51:08 Tdap 0 completed Not Available [facility] 08/05/2023 05:51:08 varicella 1 completed Not Available [facility] 08/05/2023 05:51:08 HPV, quadrivalent 1 completed Not Available [facility] 08/05/2023 05:51:08 Hep A, ped/adol, 2 dose 1 completed Not Available [facility] 08/05/2023 05:51:08 Hep A, ped/adol, 2 dose 0 completed Not Available [facility] 08/05/2023 05:51:08 DTaP, unspecified formulation 2 completed Not Available [facility] 08/05/2023 05:51:08 Past Encounters Encounter ID Performer Location Encounter Start Date Encounter Closed Date Diagnosis/Indication Diagnosis SNOMED-CT Code Diagnosis ICD10 Code Diagnosis Note [id number] Marizol Paez MD [facility] [place] [address] [facility] [place] [id number] 09/18/2022 12:53:09 09/18/2022 13:34:47 Pain in throat 024439083 R07.0 Strep swab in the office today was negative. Suggest this is a viral issue and will take time to resolve. Nausea 808914377 R11.0 Likely due to her underlying illness. Son also recently diagnosed with a viral illness. She understand s the importance of pushing fluids. Gilbert's syndrome 29149 000 E80.4 Pityriasis versicolor 56 364585 B36.0 Suggested OTC lamisil cream. [id number] BOOKER OLIVARES [facility] Immediate Care- Floor 1, [address],[facility] [address] [place] [id number] 11/26/2022 12:14:40 11/26/2022 12:41:53 Nail deformity 493891493 L60.8 no obvious sign of fungal infection. Nail loss may be related to initial injury. Continue to monitor at home, follow up with any new or worsening symptoms. [id number] Cassie Jimenez [facility] Immediate Care- Floor 1, [address],[facility] [address] [place] [id number] 01/21/2023 07:59:03 01/21/2023 08:28:49 Cough 91500396 R05.1 Generalize d aches and pains 77023470 R52 Exposure t o Influenzavirus 882023524 Z20.828 Nausea 846452271 R11.0 Viral syndrome 691398380 B34.9 [id number] Saskia Soriano APRN [facility] Immediate Care- Floor 1, [address] [place] [address],[facility] [address] [place] [id number] 02/10/2023 15:16:39 02/10/2023 15:42:50 Sore throat 068821223 J02.9 We will contact with results of throat culture when available and treat if indicated. Increase fluid intake until better, Tylenol/Mo juan ramon as needed, salt water gargle twice a day. Follow up with any new or worsening symptoms. Discard toothbrush as we discussed. Exposure t o SARS-CoV-2 278083766 Z20.822 Continue with hand hygiene, social distancing and vaccines as recommende d by PCP. Viral syndrome 614004289 B34.9 Possibly HFMD, discussed supportive measures. [id number] Molly Bolton MD [facility] Primary Care- Floor 2, [address] [place] [address],[facility] [address] [place] [id number] 03/17/2023 09:03:37 03/17/2023 10:09:55 Irritable bowel syndrome 00217793 K58.9 Continue zofran prn nausea. Referral to GI for futher work-up. 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 Continue meloxicam and tylenol. Referring to Ortho Spine as precaution . Follow-up in 6 weeks and prn [id number] Indu Decker NP [facility] [address] [place] [address] [place] [id number] 05/19/2023 07:54:57 05/19/2023 16:07:23 Hematochezia 873005823 K92.1 6-7 month history hematochez ia, describes large amount at times. Recommend labs today. Recommend colonoscop y to further evaluate r/o colitis, internal hemorrhoid s, other. Pt is scheduled for Colon 06/25 @ 9:00 AM Diarrhea 36334554 R19.7 History of alternatin g constipati on diarrhea. Experienci ng worsening diarrhea over the past 2 weeks. Plan for x-ray abdomen KUB to rule out underlying stool burden. Recommend colonoscop y with random colon biopsies to rule out underlying colitis, other. Plan for labs today. Patient's brother with history of Crohn's. Nausea 901601037 R11.0 Daily episodes of nausea ongoing for several years. EGD reviewed 03/03/[address] Leslie appeared normal, pathology negative for H pylori or celiac. Recommend gallbladde r US to further evaluate. Generalize d abdominal pain 690561344 R10.84 Episodes of upper abdominal pain radiating down throughout her abdomen. Plan for gallbladde r ultrasound as above as well as labs. Recommend colonoscop y to further evaluate. No etiology identified on EGD from 02/2022. [id number] Molly Bolton MD [facility] Primary Care- Floor 2, [address] [place] [address],[place] [address] [place] [address] [id number] 06/10/2023 16:09:30 06/10/2023 17:11:15 Low back pain co-occurrent with neuralgia of right sciatic nerve [id number] 89705 M54.41 As symptoms ongoing and not improving, referring to Ortho spine. Continue meloxicam (if makes to drowsy can take tylenol or ibuprofen instead, discussed taking NSAIDs with food so as not to upset her stomach). Continue amitriptyl line (discussed that it is ok for her to take 10-20 mg rather than 5 mg). Nausea 246684175 R11.0 Following with GI and has upcoming HIDA scan and colonoscop y scheduled. Continue zofran prn. [id number] DO [place] Mcduffie General Surgery - [address] [facility], [address] [place] [id number] 07/09/2023 13:46:06 07/09/2023 15:31:08 Chronic cholecystitis 33934993 K81.1 I do feel that she is having biliary colic and a benefit from cholecyste ctomy therefore we will schedule laparoscop ic cholecyste ctomy /possible open cholecyste ctomy / possible intraopera tive cholangiog laura under general anesthesia . The procedure, risks and benefits were discussed with her and she agrees to proceed. In the meantime she should be on a low-fat diet. Irritable bowel syndrome with diarrhea 760750275 K58.0 I do think she has irritable bowel syndrome with diarrhea we did discuss that laparoscop ic cholecyste ctomy will probably not take care of all of those symptoms. She understand s. 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 Suspect possible pityriasis alba vs. pityriasis versicolor . Will treat for both possibilit ies with combinatio n steroid-an tifungal cream (as planning to have abdominal surgery soon, suggested just treating her back at this time and waiting until wounds heal after surgery to treat her abdomen. Chronic cholecystitis 20 242918 K81.1 Patient scheduled for cholecyste ctomy 07/24/23 Low back p ain co-occurrent with neuralgia of right sciatic nerve 8380216451 23267 M54.41 She is now following with Orthopedic s and will do PT after she has her gallbladde r surgery. [id number] Saskia Soriano APRN [facility] Immediate Care- Floor 1, [address] [facility] [address] [place] [id number] 07/24/2023 08:07:21 07/24/2023 08:47:22 Sore throat 903278098 J02.9 Suspect viral etiology. Continue with symptom management , salt water gargles BID. Follow up if no improvemen t in 3-5 days or sooner with worsening symptoms. Cough 17505506 R05.1 Suspect that this is viral. Recommend increase fluid intake (especiall y water). Cool mist humidifier at bedside at night to help loosen mucus. Recommend nasal washes daily, allergy medication and nasal spray for symptom management . May use Tylenol and Ibuprofen as needed for fever/pain ; cough/cold remedies PRN. Follow-up with PCP if no improvemen t in 7-10 days, sooner with worsening symptoms. [id number] Francy Su DO [place] General Surgery - [address], [address] [place] [id number] 08/13/2023 11:07:19 08/17/2023 14:08:53 Postoperative visit 599979404 Z48.89 Status post laparoscop ic cholecyste ctomy she is doing well. We discussed that if her loose stools continue, I can give her cholestyra mine if needed. She is going to let me know. She should continue lifting restrictio ns for another couple of weeks. She is to let me know if she needs to see me again. [id number] Molly Bolton MD [facility] Primary Care- Floor 2, [address] [facility],[place] [address] [place] [address] 09/22/2023 14:35:17 09/22/2023 16:07:30 Generalized rash 655324474 R21 Suspected pityriasis alba. Have treated with both topical steroids and antifungal s without resolution . Referring to dermatolog y for further evaluation . History of cholecystectomy 077195425 Z90.49 Recovering well from recent cholecyste ctomy for chronic cholecysti tis. Low back p ain co-occurrent with neuralgia of right sciatic nerve 7579081833 94211 M54.41 Following w/ spine surgeon Dr. Lobato who has ordered back braces and PT. Insomnia 206783343 G47.0 0 Ok to use benadryl prn sleep. I have prescribed amitriptyl ine in past for her sciatica and said she might try this prn in place of the benadryl as it might also help with sleep. [id number] Molly Bolton MD [facility] Primary Care- Floor 2, [address] [facility],[place] [address] [place] [address] 12/14/2023 10:01:42 12/14/2023 12:08:18 Abnormal urinalysis 399683868 R82.90 Hospital UA w positive LE and UA today in clinic with small LE. Given symptoms of abdominal cramping and ongoing diarrhea, will treat for possible UTI per below and send for culture Acute urin glenn tract infection 559749049 N39.0 Will start treatment with keflex as and follow-up urine culture and adjust antibiotic s prn Palpitations 74448642 R0 0.2 Stop metoprolol and start labetalol. Patient has upcoming cardiology appt. Cardiac testing including troponins and TTE have so far been reassuring . Holter monitor results pending. Nausea and vomiting 1693 1999 R11.2 Start doxylamine -pyridoxin e for likely related nausea. Nausea 326348443 R11.0 Discussed trying doxylamine first for nausea and if breakthrou gh nausea can use zofran prn (class B in , likely safe) test positive 125264884 Z32.01 Patient has follow-up US later this week (elevated HCG but US has yet to confirm IUP) [id number] Molly Bolton MD [facility] Primary Care- Floor 2, [address] [place] [address] 02/02/2024 08:22:33 02/02/2024 09:24:10 Impaired mobility 96436253 Z74.09 Due to her POTS (becomes lightheade d and palpitatio ns with standing). Patient has mobility limitation that affects their ability with grooming or bathing. This can not be improved with a cane or walker. Patient is willing to use in house daily on a regular basis in which the wheelchair will improve the patient's daily living in the home. Patient has ability to use their upper extremitie s and is both physically and mentally capable of propelling the chair. Her is willing to help as well. Postural o rthostatic tachycardia syndrome 230143170 G90.A Receiving periodic iv fluid injections ordered by OB and following with cardiology Tachycardia 2671023 R00. 0 [place] to be 2/2 to dehydratio n and POTS. Currently wearing holter monitor. Following with cardiology . Continue metoprolol . Hyperemesi s gravidarum 70444731 O21.0 Continue zofran. Following with OB Second tri mester 97570208 Z34.92 Following with OB. Anxiety 49911602 F41.9 Continue buspirone and hydroxyzin e prn. [id number] Molly Bolton MD [facility] Primary Care- Floor 2, [address] [place], [place] [address]i [address] [place] [address] 03/22/2024 08:25:27 03/23/2024 07:20:01 Anxiety disorder 123698732 F41.9 Continue buspirone. Collected gene sight testing today to help guide medication management (with plan to forward to her provider when establishe s). Referring to for medication management and counseling . Postural o rthostatic tachycardia syndrome 960014880 G90.A Receiving periodic iv fluid infusions ordered by OB and following with cardiology Anemia 716923680 D64.9 Iv iron infusions being considered by her OB Hematochezia 461566376 K 92.1 Following with GI. Scopes being post-poned until after she delivers. [id number] FLAVIA KIRBY ic Intervent ions at [address] [place] [address] 05/11/2024 10:46:21 05/18/2024 10:10:23 [id number] Molly Bolton MD [facility] Primary Care- Floor 2, [address] [facility] te [place] [id number] 07/12/2024 08:20:01 07/13/2024 07:24:42 Postural orthostatic tachycardia syndrome 488410679 G90.A Continues to have issues with standing, moving, exertion and mainly in wheelchair or in bed. Has intermitte ntly needed iv fluids. Brought in paperwork today for me to fill-out regarding functional capacity assessment for SS (managemen t to look at and decide if this is something I can fill out or if needs doctor to complete). Continues to follow with cardiology . Anxiety 35952873 F41.9 Continues on buspirone. 06087557 Z33.1 Following / obstetrics /MFM with plan for upcoming induction due to her POTS. [id number] FLAVIA KIRBY ic Intervent ions at [place] [address] [address] [place] [address] 06/14/2024 10:38:56 06/14/2024 12:25:13 [id number] FLAVIA KIRBY ic Intervent ions at [place] [address] [facility] [place] [address] 09/05/2024 08:00:30 09/05/2024 10:08:29 [id number] FLAVIA KIRBY Therapeut ic Intervent ions at [address] [place] [address] 10/04/2024 09:53:14 10/04/2024 11:21:35 [id number] FLAVIA KIRBY Therapeut ic Intervent ions at [address] [place] [address] 11/09/2024 11:15:42 11/15/2024 08:27:33 [id number] FLAVIA KIRBY Therapeut ic Intervent ions at [address] [place] [address] 12/13/2024 09:47:41 12/15/2024 15:09:13 Health Concerns Section Related Observation LastModified by Organization Detai ls LastModified Time None Recorded Concern Status LastModified by Organization Details LastModified Time None Recorded Advance Directives Directive N: Payers Insurance Date Sequence Insurance Name Policy Number Policy Zaidi Covered Member ID Zaidi Member ID Guarantor Name 03/23/2024 1 [place] [id number] Francy Delarosa [id number] Francy Delarosa 02/13/2024 [facility] R[facility]K [facility] Unknown Francy Delarosa 12/10/2024 1 [employer] [place] (MEDICAID HMO) Francy Delarosa [id number] Francy Delarosa 04/17/2023 2 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 #Chronic cholecystitiss/p cholecystectomy w/ general surgery Dr. Terrazas have quite a bit of post-op discomfort but feels fully recovered nowIncisions well healed #Chronic low back pain w/ sciaticaFollowing w/ spine surgeon Dr. Lobato and his mid-levelsSays she has had MRI spine since last visit with me as well as recent nerve testing which showed trouble in her SI jointHas braces ordered for lower and upper backHas been doing physical therapy that started about 2 weeks ago #RashPatches of decreased pigmentation on back and abdomenHave been treating with various topicals (antifungal and steroid) without resolutionAmenable to referral to dermatology #InsomniaHaving trouble sleeping since her surgeryHas been taking benadryl prn to help with sleepA lot of family stressors lately - daughter had seizures related to changing ADHD medications and had a family member pass awayPHQ-2 score of 0 today Molly Bolton MD [address] [place] [address] Drive, [address], [place], [address], [place] 09/22/2023 18:47:04 4 text/htm pj Delarosa is a 23 yo female with depression, IBS-D, Gilbert's syndrome, chronic low back pain with sciatica, cholecystitis s/p recent cholecystectomy who presents for ER follow-ups. I personally reviewed [facility] ER notes from 12/04/23 and 12/10/23 #PalpitationsPatient seen the above dates for palpitations at [facility] seen at [facility] in between these two ER visitsHRs up to 130s at first ER visit with otherwise normal vitalsShe was given 1L fluid bolus and phenergan at first ER visitAt the [facility] visit in between had unremarkable cardiac echo and negative CTA chestAt 2nd [facility] ER visit HRs up to 120s with otherwise normal vitalsWas given 1L fluid bolus, po metoprolol, and iv zofranReferral was made to Cardiology Dr. Virgen and outpatient cardiac monitoringLabs from 12/04/23 notable for CMP with slightly low K of 3.2, negative troponin, BHCG of 1193, negative UDS, unremarkable CBC, bland UALabs from 12/10/23 notable [place] [address], negative troponin, CMP with slightly elevated tbili of 1.9, negative UDS, unremarkable CBC, UA with positive ketones, trace LEContinues to feel bad - having n/v/d, loss of appetite, tremors, chest painHas had some frequent urination at times but no dysuriaDrinking water and gatorade but consuming anything else seems to cause vomitingSays she has had vomiting the entire monthHas been taking zofranHas not been to see an OB yet but have another US scheduled for Thursday ((as has high HCG but haven't idenitfied IUP yet)Having some abdominal cramping and some intermittent spottingHas been taking metoprolol for high heart (discussed switching to labetalol better for )Says she has completed heart rate monitor and turned it inSays she will be able to see fitter armament in [facility] sooner than she can get into cardiology here Molly Bolton MD [address] [place] [address] Drive, [address], [place], [address], [facility] - [place] 12/14/2023 21:40:31 4 text/htm pj Delarosa is a 23 yo female with anxiety and depression, IBS-D, Gilbert's syndrome, chronic low back pain with sciatica, who present for hospital and ER follow-ups. She is accompanied to clinic by her husbandPatient [facility] and also went to ER 01/31/24 for elevated heart rate and n/v.Labs overall unremarkable (negative troponin, CMP without significant abnormalities, normal CBC 01/24/24 at [facility] and unremarkable CMP, CBC, lactic acid, lipase, and UA 01/31/24 at )Had has 2 OB US at 01/23/24 12 weeks gestation and had bedside US on 01/31/24 showing IUP with FHR of 152Was discharged on zofran, buspirone, hydroxyzine and metoprolol from [facility], felt to be having sinus tachycardia, possible POTs, and panic attacksFelt to have sinus tachycardia and dehydration at ER and given LR and zofran and prescribed pepcid at dischargeUK note mentioned patient currently wearing Holter monitor and hadShe says she continues to have some palpitations and dizziness with standingSays she is bed bound and wheelchair bound (she says that her fitter armament made these specifications)Currently off workHaving a lot of nausea as well as diarrheaShe is getting banana bag infusions three times per week (ordered by [place]) and has been referred [facility] target aircraft [facility] wearing Holter monitorReports HRs up to 170s-180s and sometimes looking like SVT on monitorsOn 25 mg metoprolol dailyShe is following with [facility] [place] and has follow-up with them todaySays Holter monitor is to stay on until next weekSays yesterday was first day she went without a spell - no palpitations, no hand or feet numbness or tinglingSays current working diagnosis is POTSTaking buspirone and hydroxyzine prnSays not taking pepcid that [place] [facility] [place] have a cough productive of some yellow phlegmDoes have some nasal drainage which she thinks is related to allergiesDiscussed that she can try over the counter flonase/fluticasone prn allergiesShe is taking zofran every 4-6 hours around the clock to try and prevent n/vThis is 5th but 3rd that will be carried to termHas not had such bad symptoms with other pregnancies (nausea was more minor)Did have a period of about 3 weeks when she did not have these symptoms, but then symptoms all returnedDoesn't think anyone in her family has had similar troubles with pregnanciesRequests wheelchair for home and outside use. his having to help her with bathing and grooming as can't stand up without having dizziness or palpitations currently.She will be taking her [place] paperwork to her OB to fill out Molly Bolton MD [address] [place] [address], [address], [place], [address], [place] [facility] & [place] 02/02/2024 12:02:53 4 text/htm pj Delarosa is a 23 yo female with anxiety and depression, IBS-D, Gilbert's syndrome, chronic low back pain with sciatica, current , POTs who presents for follow-up. She is accompanied by a friend who drove her and assisted her with getting in to clinic Patient is seated in a wheelchair Since last visit 02/01/24Has again been hospitalized (says she got out of the hospital last week)Says she had BRBPR and alternating between diarrhea and constipation that visitDid see GI while she was in the hospitalSays she did not receive any scopes while in the hospital (but plan to do them after delivery)Says they did not see any external hemorrhoids, but couldn't rule out internal hemorrhoidsHas been prescribed miralax to take for constipationSays she can only tolerate water to drink and certain foodsContinues to follow with fitter armament who has referred her to immunology (she is hoping to be tested for mcas)Says she has not heard from in [place] that I have referred her to (she is interested in both medication management and counseling)Says that buspirone is helping, but not controlling anxietyCan only take 5 mg nightly of buspirone otherwise it causes her to have POTS attacksTrying to get home health or a waiver program where could stay home to help care for herSays she cannot take hydroxyzine and benadryl because they cause palpitationsInterested in gene sight testing today to help choose medications for anxietySays she is to be started on iron infusions for continued anemiaShe continues to receive iv fluid infusion from her OBPlan is for her to have scheduled at 37 weeksHas compression socks that help some with the POTs Molly Bolton MD [address] [place] [address], [address], [place], [address], [place] & [place] 03/22/2024 17:52:00 4 text/htm pj Delarosa is a 24 yo female with anxiety and depression, IBS-D, Gilbert's syndrome, chronic low back pain with sciatica, current (will be induced later this week), POTs who presents with paperwork. She is accompanied to clinic by her today #PaperworkPaperwork is for SS waiver for her lawyerAlready getting help at home through waiver programSays she gets pre-syncopal quite frequently preventing her from performing her usual activitiesPatient says she can't stand for longer than 2-3 minutes without feeling like she is going to faintSays her HR goes up high with any type of exertionContinues to mainly stay in wheelchair or in bedCurrently following with immunology, cardiology, MFM, and GI at [facility] time I saw patient in person was 03/22/24 and she had been diagnosed with POTS and was periodically receiving iv fluids Went over paperwork in clinic todayIt is unclear if she needs an SS doc to do this rather than me (I am going to have my admin look at the paperwork to determine this, will fill out if appropriate )Limitations: lifting and carrying less than 10 lbs, standing and waling less than 2 hours, sitting 6 hours of 8 hour workday, pushing and pulling limited in upper and lower extremities due to increased HR with thisPostural limitations: cannot climb, balance, stoop, knee, crouch, crawlManipulative limitations: cannot reach, otherwise ok using her hands/arms if not doing activity for long periods of timeVisual limitations: describes light sensitivityNo communication limitationsEnvironmental limitations: extreme heat and cold bother her, loud noises bother her as well as smells/odors #AnxietyPHQ-2 screening low at 2 todayContinues on buspirone (says currently being prescribed by MFM and hopes that I will take over the prescription after she delivers) Molly Bolton MD [address] [place] [address], [address], [place], [address], [facility] & [place] 07/12/2024 12:23:22 OBGyn Episode No OBEpisode recorded.
--- OUTSIDE RECORDS SUMMARY | 2025-01-06 11:15 | XMS_ITS | Encounter Summary ---
Author Organization Healthcare Address [address] 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 Name Role Phone Molly Louis MD Primary Care Provider [phone] Angela Oleary RN Unavailable Unavailable Rey Wyatt MD Primary Care Provider [phone] Reason for Visit * Reason Onset Date Comments Med Refill 03/23/2024 Encounter Details Date Type Department Care Team ([facility] Contact Info) Description 03/23/2024 Refill Medical Office Building Obstetrics and Gynecology [address], [address] [place] [address] Shalonda Davies, CERTIFIED WELDING INSPECTOR [address] [place] [address] Social History Tobacco Use Types [...] Recorded Patient Health Questionnaire-2 Score 0 02/17/2024 [facility] - [...] in a assisted (including now)? 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 [address] Cody Barnett MD [address] [place] [address] 02/10/2025 10:00 AM EDT [facility] [address] [place] [id number] Rachel Khan PA [address] [facility] [address] [place] [address] 02/16/2025 1:20 PM EDT Office Visit [facility] [place] [address], [address] [place] [address] Courtney Torres MD [address] [place] [address] 03/15/2025 3:30 PM EDT Consult [facility] [address] [place] [address] Kendy Sanchez APRN [address] [place] [address] 04/17/2025 2:00 PM EDT Office Visit [place] [facility] [address] [place] [address] Silverio Tam PA [address] [place] [address] documented as of this encounter [...] documented as of this encounter Care Teams Rafter Cutting Machine Operator Relationship Specialty Start Date End Date Molly Louis MD [address] [place] [address] PCP - General Family Medicine 02/09/24 11/15/24 Rey Wyatt MD [address] [place] [address] [place] [address] PCP - General 11/16/24 Angela Oleary, RN [facility] Registered Nurse Cardiology 02/17/24 documented as of this encounter
--- OUTSIDE RECORDS SUMMARY | 2025-01-06 11:16 | XMS_ITS | Data Portability ---
Author Organization [employer] [facility] Address [address] [place] [address] Assessment Encounter Date Assessment Date Assessment LastModified by Organization Details LastModified Time 12/18/2023 12/18/2023 Patient is ___weeks . Discussed plan. [email or web address] Not available 12/17/2023 10:25:59 Plan of Treatment Reminders Order Date Submit Date Provider Last Modified By Organization Details Last Modified Time Details Appointments None recorded. Lab urinalysis , dipstick [address], [address] [place], [address], 4 17:15:18 unlisted lab - qnatal(R) advanced 2023 024 [facility], [address], [place], [address], 4 01:26:17 rapid strep group A, throat 2023 024 [email or web address] [facility], [address] [place] [address], [place], [address], 4 13:42:01 urinalysis , dipstick 2023 024 [facility], [address] [place], [address], 4 10:47:53 Referral None recorded. Procedures None recorded. Surgeries None recorded. Imaging None recorded. Medication Orders cefdinir 300 mg capsule 2023 024 [email or web address] [facility], [address] [place] [address] 2, [place], [place], [id number], 4 16:54:44 Patient TargetsNo targets recorded. Patient Instructions Encounter Date Encounter Id Patient Instructions Last Modified By Organization Details Last Modified Time 01/06/2024 [id number] Increase fluid intake, take tylenol and motrin for pain/fever as needed, advised to take medication as prescribed to eradicate bacterial infection and reduce chances of antibiotic resistance. Change toothbrush in 24 hours. May return to school 24 hours after antibiotic therapy. Follow up with PCP or OB for symptoms not improving. Go to ER with any concerning symptoms. [email or web address] Not available 01/06/2024 14:35:51 Reason for Referral None Reported. Results Created Date Observation Date Name Description Value Unit Range Abnormal Flag Note LastModifiedBy Organization Detail LastModifiedTime 12/09/19 24 12/10/2023 HEPAT IC FUNCT ION PANEL protein, total 7.7 g/dL 6.1-8. 1 normal Not Available [facility] [place] [facility] [address] [place], [address], 12/10/2023 11:16:57 12/09/19 24 12/10/2023 HEPAT IC FUNCT ION PANEL albumin 4.7 g/dL 3.6-5. 1 normal Not Available [facility] [place] [facility] [address] [place], [address], 12/10/2023 11:16:57 12/09/19 24 12/10/2023 HEPAT IC FUNCT ION PANEL globulin 3.0 g/dL_ (calc ) 1.9-3. 7 normal Not Available [employer] [facility] [address] [place], [address], 12/10/2023 11:16:57 12/09/19 24 12/10/2023 HEPAT IC FUNCT ION PANEL albumin/glob ulin ratio 1.6 (calc ) 1.0-2. 5 normal Not Available [facility] [place] [facility] [address] [place], [address], 12/10/2023 11:16:57 12/09/19 24 12/10/2023 HEPAT IC FUNCT ION PANEL bilirubin, total 2.6 mg/dL 0.2-1. 2 high Not Available [employer] [facility] [address] [place], [address], 12/10/2023 11:16:57 12/09/19 24 12/10/2023 HEPAT IC FUNCT ION PANEL bilirubin, direct 0.4 mg/dL < or = 0.2 high Not Available [employer] [facility] [place], [address], 12/10/2023 11:16:57 12/09/19 24 12/10/2023 HEPAT IC FUNCT ION PANEL bilirubin, indirect 2.2 mg/dL _(farhan c) 0.2-1. 2 high Not Available [employer] [facility] [address] [place], [address], 12/10/2023 11:16:57 12/09/19 24 12/10/2023 HEPAT IC FUNCT ION PANEL alkaline phosphatase 37 U/L 31-125 normal Not Available [employer] [facility] [address] [place], [address], 12/10/2023 11:16:57 12/09/19 24 12/10/2023 HEPAT IC FUNCT ION PANEL AST 14 U/L 10-30 normal Not Available [employer] [facility] [place], [address], 12/10/2023 11:16:57 12/09/19 24 12/10/2023 HEPAT IC FUNCT ION PANEL ALT 12 U/L 6-29 normal Not Available [facility] [place] [facility] [address] [facility] [place], [address], 12/10/2023 11:16:57 12/09/19 24 12/10/2023 HCG, TOTAL , [place] [address] mIU/m L high Refer ence Range Nonpr egnan t or preme nopau petr <5 Postm enopa usal <10 Value s from diffe rent assay metho ds may vary. The use of this assay to monit or or to diagn ose patie nts with cance r or any condi tion unrel ated to pregn suzanne has not been clear ed or appro goldie by the FDA or the up health system actur er of the assay . Not Available [facility] [place] [facility] [address] [facility], [place], [address], 12/10/2023 11:16:58 12/09/19 24 12/09/2023 urina lysis , dipst ick Leukocytes Modera te Not Available [address], [address], 12/09/2023 08:11:20 12/09/19 24 12/09/2023 urina lysis , dipst ick Nitrite negati ve Not Available [address], [address], 12/09/2023 08:11:20 12/09/19 24 12/09/2023 urina lysis , dipst ick Urobilinogen .2 Not Available [address], [address], 12/09/2023 08:11:20 12/09/19 24 12/09/2023 urina lysis , dipst ick Protein Negati ve Not Available [address], [address], 12/09/2023 08:11:20 12/09/19 24 12/09/2023 urina lysis , dipst ick pH 5.5 Not Available [address], [address], 12/09/2023 08:11:20 12/09/19 24 12/09/2023 urina lysis , dipst ick Blood Negati ve Not Available [address], [address], 12/09/2023 08:11:20 12/09/19 24 12/09/2023 urina lysis , dipst ick Specific [place] 1.025 Not Available [address], [address], 12/09/2023 08:11:20 12/09/19 24 12/09/2023 urina lysis , dipst ick Ketone Small Not Available [address], [address], 12/09/2023 08:11:20 12/09/19 24 12/09/2023 urina lysis , dipst ick Bilirubin Negati ve Not Available [address], [address], 12/09/2023 08:11:20 12/09/19 24 12/09/2023 urina lysis , dipst ick Glucose Negati ve Not Available [address], [address], 12/09/2023 08:11:20 12/09/19 24 12/09/2023 urina lysis , dipst ick Appearance Clear Not Available [address], [address], 12/09/2023 08:11:20 12/09/19 24 12/09/2023 urina lysis , dipst ick Color Dark Yellow Not Available [facility] [address] [facility], [place], [address], 12/09/2023 08:11:20 12/09/19 24 12/09/2023 pregn suzanne test, urine HCG positi ve Not Available [facility] [address] [facility], [place], [address], 12/09/2023 08:11:34 12/18/19 24 12/22/2023 OBSTE TRIC PANEL W/FOU RTH GENER ATION HIV AND HEPAT ITIS C AB W/REF L white blood cell count 6.2 thous and/u L 3.8-10 .8 normal Not Available [facility] [place] [facility] [address] [place], [address], 12/22/2023 10:53:19 12/18/19 24 12/22/2023 OBSTE TRIC PANEL W/FOU RTH GENER ATION HIV AND HEPAT ITIS C AB W/REF L red blood cell count 4.24 iron on/uL 3.80-5 .10 normal Not Available [facility] [place] [facility] [address] [place], [address], 12/22/2023 10:53:19 12/18/19 24 12/22/2023 OBSTE TRIC PANEL W/FOU RTH GENER ATION HIV AND HEPAT ITIS C AB W/REF L hemoglobin 12.7 g/dL 11.7-1 5.5 normal Not Available [facility] [place] [facility] [address] [place], [address], 12/22/2023 10:53:19 12/18/19 24 12/22/2023 OBSTE TRIC PANEL W/FOU RTH GENER ATION HIV AND HEPAT ITIS C AB W/REF L hematocrit 38.7 % 35.0-4 5.0 normal Not Available [facility] [place] [facility] [address] [place], [address], 12/22/2023 10:53:19 12/18/19 24 12/22/2023 OBSTE TRIC PANEL W/FOU RTH GENER ATION HIV AND HEPAT ITIS C AB W/REF L MCV 91.3 fL 80.0-1 00.0 normal Not Available [facility] [place] [facility] [address] [facility] [place], [address], 12/22/2023 10:53:19 12/18/19 24 12/22/2023 OBSTE TRIC PANEL W/FOU RTH GENER ATION HIV AND HEPAT ITIS C AB W/REF L MCH 30.0 pg 27.0-3 3.0 normal Not Available [facility] [place] [facility] [address] [facility], [place], [address], 12/22/2023 10:53:19 12/18/19 24 12/22/2023 OBSTE TRIC PANEL W/FOU RTH GENER ATION HIV AND HEPAT ITIS C AB W/REF L MCHC 32.8 g/dL 32.0-3 6.0 normal Not Available [facility] [place] [facility] [address] [place], [address], 12/22/2023 10:53:19 12/18/19 24 12/22/2023 OBSTE TRIC PANEL W/FOU RTH GENER ATION HIV AND HEPAT ITIS C AB W/REF L RDW 12.0 % 11.0-1 5.0 normal Not Available [facility] [place] [facility] [address] [place], [address], 12/22/2023 10:53:19 12/18/19 24 12/22/2023 OBSTE TRIC PANEL W/FOU RTH GENER ATION HIV AND HEPAT ITIS C AB W/REF L platelet count 143 thous and/u L 140-40 0 normal Not Available [facility] [place] [facility] [address], [place], [address], 12/22/2023 10:53:19 12/18/19 24 12/22/2023 OBSTE TRIC PANEL W/FOU RTH GENER ATION HIV AND HEPAT ITIS C AB W/REF L MPV 11.8 fL 7.5-12 .5 normal Not Available [facility] [place] [facility] [address], [place], [address], 12/22/2023 10:53:19 12/18/19 24 12/22/2023 OBSTE TRIC PANEL W/FOU RTH GENER ATION HIV AND HEPAT ITIS C AB W/REF L absolute neutrophils 5233 cells /uL 1500-7 800 normal Not Available [facility] [place] [facility] [address], [place], [address], 12/22/2023 10:53:19 12/18/19 24 12/22/2023 OBSTE TRIC PANEL W/FOU RTH GENER ATION HIV AND HEPAT ITIS C AB W/REF L absolute lymphocytes 651 cells /uL 850-39 00 low Not Available [facility] [place] [facility] [address], [place], [address], 12/22/2023 10:53:19 12/18/19 24 12/22/2023 OBSTE TRIC PANEL W/FOU RTH GENER ATION HIV AND HEPAT ITIS C AB W/REF L absolute monocytes 273 cells /uL 200-95 0 normal Not Available [facility] [place] [facility] [address], [place], [address], 12/22/2023 10:53:19 12/18/19 24 12/22/2023 OBSTE TRIC PANEL W/FOU RTH GENER ATION HIV AND HEPAT ITIS C AB W/REF L absolute eosinophils 12 cells /uL 15-500 low Not Available [facility] [place] [facility] [address], [place], [address], 12/22/2023 10:53:19 12/18/19 24 12/22/2023 OBSTE TRIC PANEL W/FOU RTH GENER ATION HIV AND HEPAT ITIS C AB W/REF L absolute basophils 31 cells /uL 0-200 normal Not Available [facility] [place] [facility] [address], [place], [address], 12/22/2023 10:53:19 12/18/19 24 12/22/2023 OBSTE TRIC PANEL W/FOU RTH GENER ATION HIV AND HEPAT ITIS C AB W/REF L neutrophils 84.4 % normal Not Available [facility] [place] [facility] [address], [place], [address], 12/22/2023 10:53:19 12/18/19 24 12/22/2023 OBSTE TRIC PANEL W/FOU RTH GENER ATION HIV AND HEPAT ITIS C AB W/REF L lymphocytes 10.5 % normal Not Available [facility] [place] [facility] [address], [place], [address], 12/22/2023 10:53:19 12/18/19 24 12/22/2023 OBSTE TRIC PANEL W/FOU RTH GENER ATION HIV AND HEPAT ITIS C AB W/REF L monocytes 4.4 % normal Not Available [facility] [place] [facility] [address], [place], [address], 12/22/2023 10:53:19 12/18/19 24 12/22/2023 OBSTE TRIC PANEL W/FOU RTH GENER ATION HIV AND HEPAT ITIS C AB W/REF L eosinophils 0.2 % normal Not Available [facility] [place] [facility] [address], [place], [address], 12/22/2023 10:53:19 12/18/19 24 12/22/2023 OBSTE TRIC PANEL W/FOU RTH GENER ATION HIV AND HEPAT ITIS C AB W/REF L basophils 0.5 % normal Not Available [facility] [place] [facility] [address] [facility], [place], [address], 12/22/2023 10:53:19 12/18/19 24 12/22/2023 OBSTE TRIC PANEL W/FOU RTH GENER ATION HIV AND HEPAT ITIS C AB W/REF L antibody screen, RBC w/refl id, titer and Ag NO ANTIBO DIES DETECT ED normal Refer ence range No antib odies detec sathish This assay is a scree oneida test for the detec tion of red blood cell antib odies . The test is not to be used for pretr ansfu tiana scree oneida or for the medic al manag ement of an alloi mmuni zed pregn suzanne. Not Available [facility] [place] [facility] [address] [facility], [place], [address], 12/22/2023 10:53:19 12/18/19 24 12/22/2023 OBSTE TRIC PANEL W/FOU RTH GENER ATION HIV AND HEPAT ITIS C AB W/REF L ABO group O Not Available [facility] [place] [facility] [address] [facility], [place], [address], 12/22/2023 10:53:19 12/18/19 24 12/22/2023 OBSTE TRIC PANEL W/FOU RTH GENER ATION HIV AND HEPAT ITIS C AB W/REF L Rh type RH(D) POSITI VE For addit ional infor cliff up e refer to http: //[facility] shah.Que stDia gnost ics.c om/fa q/FAQ 111 (This link is being provi ded for infor martell shen/ educa domi l purpo ses only. ) Not Available [facility] [place] [facility] [address] [facility], [place], [address], 12/22/2023 10:53:19 12/18/19 24 12/22/2023 OBSTE TRIC PANEL W/FOU RTH GENER ATION HIV AND HEPAT ITIS C AB W/REF L RPR (DX) w/refl titer and confirmatory testing NON-RE ACTIVE non-re active normal No labor atory evide nce of syphi lis. If recen t expos ure is suspe cted, submi t a new sampl e in 2-4 weeks . Not Available [facility] [place] [facility] [address] [facility], [place], [address], 12/22/2023 10:53:19 12/18/19 24 12/22/2023 OBSTE TRIC PANEL W/FOU RTH GENER ATION HIV AND HEPAT ITIS C AB W/REF L hepatitis B surface antigen NON-RE ACTIVE non-re active normal For addit ional infor cliff up e refer to http: //[facility] shah.que stdia gnost ics.c om/fa q/FAQ (This link is being provi ded for infor martell shen/ educa domi l purpo ses only. ) Not Available [facility] [place] [facility] [address] [facility], [place], [address], 12/22/2023 10:53:19 12/18/19 24 12/22/2023 OBSTE TRIC PANEL W/FOU RTH GENER ATION HIV AND HEPAT ITIS C AB W/REF L rubella Ab (IgG), immune status 1.83 index normal Index Inter preta tion ----- ----- ----- ---- <0.90 Not consi stent with immun ity 0.90- 0.99 Equiv ocal > or = 1.00 Consi stent with immun ity The prese nce of rubel la IgG antib oskar sugge sts immun izati on or past or curre nt infec tion with rubel la virus . Not Available [facility] [place] [facility] [address] [facility], [place], [address], 12/22/2023 10:53:19 12/18/19 24 12/22/2023 OBSTE TRIC PANEL W/FOU RTH GENER ATION HIV AND HEPAT ITIS C AB W/REF L HIV Ag/Ab, 4TH gen NON-RE ACTIVE non-re active normal HIV-1 antig en and HIV-1 /HIV- 2 antib odies were not detec sathish. There is no labor atory evide nce of HIV infec tion. PLEAS E NOTE: This infor matio n has been discl osed to you from recor ds whose confi denti ality may be prote cted by state law. If your state requi res such prote ction , then the state law prohi bits you from catrachita g any furth er discl osure of the infor matio n witho ut the speci fic writt en conse nt of the perso n to whom it perta ins, or as other juan permi tted by law. A gener al autho rizat ion for the relea se of medic al or other infor matio n is NOT suffi cient for this purpo se. For addit ional infor matio n pleas e refer to http: //[facility] shah.bill stdia gnost ics.c om/fa q/FAQ 106 (This link is being provi ded for infor matio nal/ educa domi l purpo ses only. ) The perfo rmanc e of this assay has not been clini leobardo valid ated in patie nts less than 2 years old. Not Available [facility] [place] [facility] [address] [facility], [place], [address], 12/22/2023 10:53:19 12/18/19 24 12/22/2023 OBSTE TRIC PANEL W/FOU RTH GENER ATION HIV AND HEPAT ITIS C AB W/REF L hepatitis C antibody NON-RE ACTIVE non-re active normal HCV antib oskar was non-r eacti ve. There is no labor atory evide nce of HCV infec tion. In most cases , no furth er actio n is requi red. Howev er, if recen t HCV expos ure is suspe cted, a test for HCV RNA (test code 40943 ) is sugge sted. For addit ional infor matio n pleas e refer to http: //[facility] stdia gnost ics.c om/fa q/FAQ 22v1 (This link is being provi ded for infor martell shen/ yang oliva purpo ses only. ) Not Available [facility] [place] [facility] [address], [place], [address], 12/22/2023 10:53:19 01/06/20 24 01/06/2024 rapid strep group A, throa t Strep negati ve Not Available [address], [place], [address], 01/06/2024 13:13:50 01/15/20 24 01/26/2024 QNATA L(R) ADVAN GREGORIO number of fetuses? 1 Not Available [facility] [place] [facility] [address], [place], [address], 01/26/2024 01:26:17 01/15/20 24 01/26/2024 QNATA L(R) ADVAN GREGORIO advanced maternal age? NOT GIVEN Not Available [facility] [place] [facility] [address], [place], [address], 01/26/2024 01:26:17 01/15/20 24 01/26/2024 QNATA L(R) ADVAN GREGORIO abnormal meliton? NOT GIVEN Not Available [facility] [place] [facility] [address], [place], [address], 01/26/2024 01:26:17 01/15/20 24 01/26/2024 QNATA L(R) ADVAN GREGORIO abnormal US? NOT GIVEN Not Available [facility] [place] [facility] [address] [place], [address], 01/26/2024 01:26:17 01/15/20 24 01/26/2024 QNATA L(R) ADVAN GREGORIO personal/fam history? NOT GIVEN Not Available [facility] [place] [facility] [address], [place], [address], 01/26/2024 01:26:17 01/15/20 24 01/26/2024 QNATA L(R) ADVAN GREGORIO interpretati on SEE NOTE This speci men showe d an expec sathish repre senta tion of chrom osome 21, 18, and 13 mater ial. See Elias rivera below . 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) Negati ve Not Available [facility] [place] [facility] [address] [facility], [place], [address], 01/26/2024 01:26:17 01/15/20 24 01/26/2024 QNATA L(R) ADVAN GREGORIO trisomy 13 (T13) Negati ve Not Available [facility] [place] [facility] [address] [facility], [place], [address], 01/26/2024 01:26:17 01/15/20 24 01/26/2024 QNATA L(R) ADVAN GREGORIO Y chromosome Not detect ed Not Available [facility] [place] [facility] [address] [facility], [place], [address], 01/26/2024 01:26:17 01/15/20 24 01/26/2024 QNATA L(R) ADVAN GREGORIO Y chr. interpretati on SEE NOTE Consi stent with a femal e fetus . Not Available [facility] [place] [facility] [address], [place], [address], 01/26/2024 01:26:17 01/15/20 24 01/26/2024 QNATA L(R) ADVAN GREGORIO sex chromosome No aneupl oidy Not Available [facility] [place] [facility] [address] [place], [address], 01/26/2024 01:26:17 01/15/20 24 01/26/2024 QNATA L(R) ADVAN GREGORIO sex chromosome interp SEE NOTE No appar ent abnor malit y was detec sathish. See Limi tatio ns below . Not Available [facility] [place] [facility] [address] [place], [address], 01/26/2024 01:26:17 01/15/20 24 01/26/2024 QNATA L(R) ADVAN GREGORIO microdeletio n Not detect ed Not Available [facility] [place] [facility] [address] [place], [address], 01/26/2024 01:26:17 01/15/20 24 01/26/2024 QNATA L(R) ADVAN GREGORIO microdeletio n interp SEE NOTE No appar ent abnor malit y was detec sathish. See Limi tatio ns below . Not Available [facility] [place] [facility] [address] [place], [address], 01/26/2024 01:26:17 01/15/20 24 01/26/2024 QNATA L(R) ADVAN GREGORIO gestational age(in weeks) 10 Not Available [facility] [place] [facility] [address] [place], [address], 01/26/2024 01:26:17 01/15/20 24 01/26/2024 QNATA L(R) ADVAN GREGORIO gestational age (in days) 3 Not Available [facility] [place] [facility] [address] [place], [address], 01/26/2024 01:26:17 01/15/20 24 01/26/2024 QNATA L(R) ADVAN GREGORIO fraction 9.49% Not Available [facility] [place] [facility] [address] [place], [address], 01/26/2024 01:26:17 01/15/20 24 01/26/2024 QNATA L(R) ADVAN GREGORIO laboratory comments SEE NOTE A porti on of the testi ng was perfo rmed at [facility] . Labor atory resul ts and submi tted clini farhan infor matio n revie wed by Tomi Lozano, Ph.D. , [facility] , [facility]. Not Available [facility] [address] [place], [address], 01/26/2024 01:26:17 01/15/20 24 01/26/2024 QNATA L(R) ADVAN GREGORIO limitations SEE NOTE QNata l(R) Advan gregorio is a cell- free DNA scree oneida test that scree ns for incre ased risk of certa in chrom osoma l abnor malit ies that may cause defec ts, inclu ding Triso my 21 (Down syndr ome), Triso my 18, Triso my 13, and certa in sex chrom osome abnor malit ies (i.e. , 45,X, 47,XX Y, 47,XX X, and 47,XY Y), as well as sex. In addit ion, if selec sathish as an optio n, QNata l(R) Advan gregorio can scree n for certa in micro delet ions (i.e. , 22q, 5p, 1p36, 15q, 11q, 8q, and 4p) that may cause defec ts. This test does not asses s the risk of abnor malit ies such as neura l tube defec ts or ventr al wall defec ts and shoul d not be consi dered in isola tion from other clini farhan findi ngs and labor atory test resul ts. QNata l(R) Advan gregorio has been valid ated in [place] pregn ancie s for the triso mies and sex chrom osome abnor malit ies liste d above , as well as for micro delet ions, and for the deter minat ion of sex. Sex chrom osome aneup loidy isauro sis is only perfo rmed in [place] pregn ancie s. This scree oneida test has also been valid ated in twin pregn ancie s for the triso mies liste d above and for micro delet ions, but not for the sex chrom osome abnor malit ies due to limit ed data. This scree oneida test has not been valid ated in highe r order pregn ancie s (more than two) becau se limit ed data is avail able. Sex chrom osoma l aneup loidy resul ts issue d for pregn ancie s confi rmed to be of multi ple gesta tions are not valid and shoul d be disre salvatore ferrari. Micro delet ion scree oneida is limit ed to the speci fied micro delet ion regio ns (see Meth odolo gy ). The Y chrom osome is isauro zed for the deter minat ion of sex. The sensi tivit y and speci ficit y of sex deter minat ion isauro sis may be less than that of the Triso my 21, 18, and 13 isauro sis and this deter minat ion can be confo unded by vanis casi twin syndr ome in pregn ancie s that were origi melissa multi ple gesta tion pregn ancie s. It shoul d be noted that QNata l(R) Advan gregorio is a quant itati ve isauro sis of mater nal and place ntal cfDNA . As a resul t, the accur acy of scree oneida resul ts may be affec sathish by the prese nce of chrom osome abnor malit ies or micro delet ions that are mater nal or confi clifford place ntal in origi n. Not Available [facility] [place] [facility] [address] [facility], [place], [address], 01/26/2024 01:26:17 01/15/20 24 01/26/2024 QNATA L(R) ADVAN GREGORIO specificatio ns SEE NOTE Sensi tivit y Speci ficit y T21 >99.9 % >99.9 % T18 >99.9 % >99.9 % T13 >99.9 % >99.9 % Accur acy Y >99.9 % Perfo rmanc e of the QNata l Advan gregorio labor atory -deve loped test (LDT) has been deter mined based on inter nal isauro tical asses sment . Not Available [facility] [place] [facility] [address] [facility], [place], [address], 01/26/2024 01:26:17 01/15/20 24 01/26/2024 QNATA L(R) ADVAN GREGORIO methodology SEE NOTE Circu latin g cell- free (cf) DNA was isola sathish from plasm a follo wed by detec tion on a massi vely paral lel seque ncing platf orm. Bioin forma tic isauro sis was perfo rmed to deter mine the repre senta tion of chrom osome s 21, 18, 13, X and Y in circu latin g cell- free DNA. The repre senta tion of seque nces from the criti farhan regio ns invol goldie in 1p36 micro delet ion syndr ome (1p36 ), Hiram Hart hhorn syndr ome (4p), Dengd u-celina t syndr ome (5p), Claudette Arriaza syl syndr ome (8q), Humberto sen syndr ome (11q) , Wu r Willi syndr ome/A ngelm an syndr ome (15q) , and DiGeo rge syndr ome (22q) is evalu ated for the detec tion of micro delet ions if reque sted. Perfo rmanc e volodymyr cteri stics refer to the isauro tical perfo rmanc e of this scree oneida test. This scree oneida test is perfo rmed pursu ant to a licen se agree ment with [facility]. QNata l Advan gregorio is a labor atory devel oped test that has been devel oped and valid ated, pursu ant to the Clini far[facility] Labor atory Impro vemen ts Amend ments of 1987 (CLIA ), and as such it has not been revie wed by FDA. Not Available [facility] [address] [place], [address], 01/26/2024 01:26:17 01/15/20 24 01/26/2024 CHLAM YDIA/ N.RO ORRHO EAE AND T. VAGIN ADILSON RNA, QL TMA chlamydia trachomatis RNA, tma, urogenital NOT DETECT ED not detect ed normal Not Available [facility] [address] [facility], [place], [address], 01/26/2024 01:26:18 01/15/20 24 01/26/2024 CHLAM YDIA/ N.RO ORRHO EAE AND T. VAGIN ADILSON RNA, QL TMA neisseria gonorrhoeae RNA, tma, urogenital NOT DETECT ED not detect ed normal Not Available [facility] [address] [place], [address], 01/26/2024 01:26:18 01/15/20 24 01/26/2024 CHLAM YDIA/ N.RO ORRHO EAE AND T. VAGIN ADILSON RNA, QL TMA comment The isauro tical perfo rmanc e volodymyr cteri stics of this assay , when used to test SureP ath(T M) speci mens have been deter mined by [facility]. The modif icati ons have not been clear ed or appro goldie by the FDA. This assay has been valid ated pursu ant to the CLIA regul ation s and is used for clini farhan purpo ses. For addit ional cliff tabares e refer to https ://ed jesusati on.qu estdi Shopmium. com/f aq/FA Q154 (This link is being provi ded for infosung shah/ yang oliva purpo ses only. ) Not Available [facility] [address] [facility], [place], [address], 01/26/2024 01:26:18 01/15/20 24 01/26/2024 CHLAM YDIA/ N.RO ORRHO EAE AND T. VAGIN ADILSON RNA, QL TMA trichomonas vaginalis RNA, ql tma NOT DETECT ED not detect ed normal For addit ional infor cliff up refer to http: //[facility] shah.que stdia gnost ics.c om/ faq/T katie reynolds tma (This link is being provi ded for infor martell shen/ educsebastián oliva purpo ses only. ) Not Available [facility] [address] [facility], [place], [address], 01/26/2024 01:26:18 01/15/20 24 01/26/2024 DRUG MONIT ORING , PANEL 8 WITH CONFI RMATI ON, URINE alcohol metabolites NEGATI VE NG/mL <500 normal Not Available [facility] [address] [facility], [place], [address], 01/26/2024 01:26:18 01/15/20 24 01/26/2024 DRUG MONIT ORING , PANEL 8 WITH CONFI RMATI ON, URINE amphetamines NEGATI VE NG/mL <500 normal Not Available [facility] [address] [facility], [place], [address], 01/26/2024 01:26:18 01/15/20 24 01/26/2024 DRUG MONIT ORING , PANEL 8 WITH CONFI RMATI ON, URINE benzodiazepi bony NEGATI VE NG/mL <100 normal Not Available [facility] [address] [place], [address], 01/26/2024 01:26:18 01/15/20 24 01/26/2024 DRUG MONIT ORING , PANEL 8 WITH CONFI RMATI ON, URINE buprenorphin e NEGATI VE NG/mL <5 normal Not Available [facility] [address] [place], [address], 01/26/2024 01:26:18 01/15/20 24 01/26/2024 DRUG MONIT ORING , PANEL 8 WITH CONFI RMATI ON, URINE cocaine metabolite NEGATI VE NG/mL <150 normal Not Available [facility] [address] [place], [address], 01/26/2024 01:26:18 01/15/20 24 01/26/2024 DRUG MONIT ORING , PANEL 8 WITH CONFI RMATI ON, URINE 6 acetylmorphi ne NEGATI VE NG/mL <10 normal Not Available [facility] [address] [place], [address], 01/26/2024 01:26:18 01/15/20 24 01/26/2024 DRUG MONIT ORING , PANEL 8 WITH CONFI RMATI ON, URINE marijuana metabolite NEGATI VE NG/mL <20 normal Not Available [facility] [address] [place], [address], 01/26/2024 01:26:18 01/15/20 24 01/26/2024 DRUG MONIT ORING , PANEL 8 WITH CONFI RMATI ON, URINE MDMA NEGATI VE NG/mL <500 normal Not Available [facility] [address] [place], [address], 01/26/2024 01:26:18 01/15/20 24 01/26/2024 DRUG MONIT ORING , PANEL 8 WITH CONFI RMATI ON, URINE opiates NEGATI VE NG/mL <100 normal Not Available [facility] [address] [place], [address], 01/26/2024 01:26:18 01/15/20 24 01/26/2024 DRUG MONIT ORING , PANEL 8 WITH CONFI RMATI ON, URINE oxycodone NEGATI VE NG/mL <100 normal Not Available [facility] [address] [place], [address], 01/26/2024 01:26:18 01/15/20 24 01/26/2024 DRUG MONIT ORING , PANEL 8 WITH CONFI RMATI ON, URINE creatinine 89.6 mg/dL > or = 20.0 normal Not Available [facility] [address] [place], [address], 01/26/2024 01:26:18 01/15/20 24 01/26/2024 DRUG MONIT ORING , PANEL 8 WITH CONFI RMATI ON, URINE pH 8.4 4.5-9. 0 normal Not Available [facility] [address] [place], [address], 01/26/2024 01:26:18 01/15/20 24 01/26/2024 DRUG MONIT ORING , PANEL 8 WITH CONFI RMATI ON, URINE oxidant NEGATI VE mcg/m L <200 normal Not Available [facility] [address] [place], [address], 01/26/2024 01:26:18 01/15/20 24 01/26/2024 DRUG MONIT ORING TEMPL ATE notes and comments This drug testi ng is for medic al treat ment only. Isauro sis was perfo rmed as non-f orens ic testi ng and these resul ts shoul d be used only by healt hcare provi ders to rende r diagn osis or treat ment, or to monit or progr ess of medic al condi tions . LDT Notes : Confi rmati on tests were devel oped and their isauro tical perfo rmanc e volodymyr cteri stics have been deter mined by [facility]. It has not been clear ed or appro goldie by the FDA. This assay has been valid ated pursu ant to the CLIA regul ation s and is used for clini farhan purpo ses. Healt hcare Provi ders needi ng Inter preta tion cleo tance , pleas e conta ct us at 1.877 .40.R XTOX (1.87 [phone] .9869 ) M-F, 8am to 10pm EST Not Available [facility] [address] [place], [address], 01/26/2024 01:26:19 01/15/20 24 01/26/2024 CULTU RE, URINE , ROUTI NE culture, urine, routine SEE NOTE CULTU RE, URINE , ROUTI NE Micro Numbe r: [id number] Test Statu s: Final Speci men Sourc e: Urine Speci men Quali ty: Adequ ate Resul t: No Growt h Not Available [facility] [address] [place], [address], 01/26/2024 01:26:19 01/15/20 24 01/15/2024 urina lysis , dipst ick Leukocytes Modera te Not Available [address], [address], 01/15/2024 16:55:16 01/15/20 24 01/15/2024 urina lysis , dipst ick Nitrite negati ve Not Available [address], [address], 01/15/2024 16:55:16 01/15/20 24 01/15/2024 urina lysis , dipst ick Urobilinogen .2 Not Available [address], [address], 01/15/2024 16:55:16 01/15/20 24 01/15/2024 urina lysis , dipst ick Protein Negati ve Not Available [address], [address], 01/15/2024 16:55:16 01/15/20 24 01/15/2024 urina lysis , dipst ick pH 6.0 Not Available [address], [address], 01/15/2024 16:55:16 01/15/20 24 01/15/2024 urina lysis , dipst ick Blood Negati ve Not Available [address], [address], 01/15/2024 16:55:16 01/15/20 24 01/15/2024 urina lysis , dipst ick Specific [place] 1.020 Not Available [address], [address], 01/15/2024 16:55:16 01/15/20 24 01/15/2024 urina lysis , dipst ick Ketone Negati ve Not Available [address], [address], 01/15/2024 16:55:16 01/15/20 24 01/15/2024 urina lysis , dipst ick Bilirubin Negati ve Not Available [address], [address], 01/15/2024 16:55:16 01/15/20 24 01/15/2024 urina lysis , dipst ick Glucose Negati ve Not Available [address], [address], 01/15/2024 16:55:16 12/11/19 24 12/11/2023 US, obste tric, trans vagin al No observ ation record ed. Amanda [address], [place], [address], 12/14/2023 10:33:57 12/18/1912/18/2023 US, obste tric, trans vagin al No observ ation record ed. [email or web address] [facility] [address] [place], [address], 12/23/2023 15:48:00 12/18/19 US, obste tric No observ ation record ed. [email or web address] [facility] [address] [facility] [place], [address], 12/18/2023 11:51:05 Result Notes None recorded. Problems Name Problem SNOMED Code Status Onset Date Resolution Date Notes Provider Name and Address Organization Details Recorded Time Tinea corporis 89058577 Active 2022 Rhonda Watkins APRN [address] [place] [address], [address], [employer] 3 15:13:40 Pityrias is versicol or 04188332 Active 2022 Rhonda Watkins APRN [address] [place] [address], [address] 8, [employer] 3 15:59:21 Depressi ve disorder 05563032 Active 2022 Rhonda Watkins APRN [address] [place] [address], [address] 8, [employer] 3 15:59:36 Overacti ve urinary bladder 287102299 Active 2022 Rhonda Watkins APRN [address] [place] [address], [address] 8, [employer] 3 15:59:50 Mixed urinary incontin ence 020590019 Active 2022 Rhonda Watkins APRN [address] [place] [address], [address] 8, [employer] 3 16:01:47 Acute pharyngi tis 903179471 Active 2022 Rhondacorey Watkins APRN [address] [place] [address], [address] 8, [employer] 3 17:50:47 Missed period 79262607 Active 2022 Rhonda Watkins APRN [address] [place] [address], [address] 8, [employer] 3 13:04:58 Nausea and vomiting 87414832 Active 2022 Rhonda Watkins APRN [address] [place] [address], [address] 8, [employer] 3 13:41:40 Constipa tion 23676631 Active 2022 Rhonda Watkins APRN [address] [place] [address], [address] 8, [employer] 3 13:41:44 Pelvic and perineal pain 317199063 Active 2022 Rhonda Watkins APRN [address] [place] [address], 463[address]702 8, [employer] 3 17:12:13 Genital herpes simplex 82867772 Active 2022 Rhonda Watkins APRN [address] [place] [address], 67[address] 8, [employer] 3 17:12:40 Abdomina l pain 10203911 Active 2022 Rhonda Watkins APRN [address] [place] [address], [address] 8, [employer] 3 09:38:02 Streptoc occal sore throat 38941842 Active 2022 NEHEMIAH GRAVES-BC [address] [place] [address], 47[address] 8, [employer] 3 08:58:06 Vaginal irritati on 322829954 Active 2023 Rhondacorey Odeniam, [employer] [address] [place], [address], [employer] 4 12:47:40 Pregnanc y 83002618 Completed 202308/30/2024 ESTELLE ONOFRE maxine [employer] 5 14:48:36 Tachycar brannon 0864096 Active 2023 On metoprolo l 12.5mg QD Francy Corey, DO [address] [place] [address], [address] 8, [place] [employer] 4 14:10:47 Tachycar brannon 1920262 Completed 2023 On metoprolo l 12.5mg QD Francy Corey, DO [address] [place] [address], [address] 8, [place] [employer] 4 14:10:47 Sore throat 892018660 Active 2023 NEHEMIAH Sims [address] [place] [address], [address] 8, [employer] 4 14:33:22 Gestatio n period, 9 weeks 825183 Active 2023 NEHEMIAH Sims [address] [place] [address], [address] 8, [employer] 4 14:33:29 Problem Notes None recorded. Procedures Surgical History Date Name Laterality Status Provider Name and Address Organization Details Recorded Time 12/11/19 Date of Last Pap Smear completed Francy Evans [employer] 10/20/2023 13:29:10 Tonsillectomy completed TELLO CHRISTINE [employer] 12/10/2022 14:43:50 hand repair completed BORIS JANE [employer] 07/23/2023 08:28:12 Dilation and Curettage completed TELLO CHRISTINE MIND [employer] 12/09/2023 10:10:06 Imaging Results None recorded. Procedure Notes None recorded. Medical Equipment None Reported. Allergies Allergen ID Allergen Name Allergen Category Reaction Reaction Severity Criticality Documentation Date Start Date Code Code System Note Provider Name and Address Organization Details Recorded Time 53132 Product containin g penicilli n (product) medicatio n Not available Not available Not available 12/10/2022 02514 8001 SNOMED TELLO [employer] 3 14:48:49 26083 Augmentin medicatio n Not available Not available Not available 12/10/2022 00821 2 RxNorm [facility] 3 14:48:54 Medications Name Sig Start Date Stop Date Status Note LastModified by Organization Details LastModified Time terbinafine HCl 1 % topical cream APPLY TO THE AFFECTED AND SURROUNDI NG AREAS OF SKIN BY TOPICAL ROUTE ONCE DAILY 07/23 completed Not Available Not Available Not Available promethazin e-DM 6.25 mg-15 mg/5 mL oral syrup 07/23 completed Not Available Not Available Not Available cetirizine 10 mg tablet 12/10 completed Not Available Not Available Not Available azithromyci n 250 mg tablet 09/22 completed Not Available Not Available Not Available fluconazole 150 mg tablet Take 1 tablet every 72 hours by oral route. 10/19 completed Not Available Not Available Not Available valacyclovi r 1 gram tablet 12/10 completed Not Available Not Available Not Available ondansetron HCl 8 mg tablet 07/23 completed Not Available Not Available Not Available meloxicam 15 mg tablet 07/23 completed Not Available Not Available Not Available promethazin e 12.5 mg tablet active Not Available Not Available Not Available ondansetron HCl 4 mg tablet TAKE ONE TABLET BY MOUTH EVERY 8 HOURS NEEDED FOR NAUSEA AND VOMITING 01/05 completed Not Available Not Available Not Available prednisone 20 mg tablet 12/10 completed Not Available Not Available Not Available valacyclovi r 500 mg tablet Take 1 tablet twice a day by oral route. 01/05 completed Not Available Not Available Not Available ciprofloxac in 500 mg tablet 12/10 completed Not Available Not Available Not Available meloxicam 7.5 mg tablet Take 1 tablet every day by oral route as needed for 30 days. 10/19 completed Not Available Not Available Not Available oxycodone-a cetaminophe n 5 mg-325 mg tablet 09/22 completed Not Available Not Available Not Available amitriptyli ne 10 mg tablet Take 1 tablet every day by oral route for 30 days. 01/05 completed Not Available Not Available Not Available benzonatate 100 mg capsule Take 1 capsule 3 times a day by oral route as needed. 07/23 completed Not Available Not Available Not Available hydrocodone 7.5 mg-acetamin ophen 325 mg tablet 12/10 completed Not Available Not Available Not Available cephalexin 500 mg capsule active Not Available Not Available Not Available pantoprazol e 40 mg tablet,neena yed release 04/18 completed Not Available Not Available Not Available oseltamivir 75 mg capsule Take 1 capsule twice a day by oral route for 5 days. 07/23 completed Not Available Not Available Not Available clotrimazol e-betametha sone 1 %-0.05 % topical cream 09/22 completed Not Available Not Available Not Available docusate sodium 100 mg capsule Take 1 capsule twice a day by oral route. 04/18 completed Not Available Not Available Not Available diclofenac sodium 75 mg tablet,neena yed release 01/05 completed Not Available Not Available Not Available hydroxyzine HCl 25 mg tablet 12/10 completed Not Available Not Available Not Available methylpredn isolone 4 mg tablets in a dose pack 07/23 completed Not Available Not Available Not Available labetalol 100 mg tablet 01/05 completed Not Available Not Available Not Available bromphenira mine-pseudo ephedrine-D M 2 mg-30 mg-10 mg/5 mL oral syrup 09/22 completed Not Available Not Available Not Available ondansetron 4 mg disintegrat ing tablet Place 1 tablet every 6-8 hours by transling ual route as needed. active Not Available Not Available No t Available cefdinir 300 mg capsule Take 1 capsule every 12 hours by oral route for 7 days. 01/14 completed Not Available Not Available Not Available fluticasone propionate 50 mcg/actuati on nasal spray,suspe nsion 07/23 completed Not Available Not Available Not Available Laxative (bisacodyl) 5 mg tablet,neena yed release 07/23 completed Not Available Not Available Not Available cyclobenzap rine 5 mg tablet 12/10 completed Not Available Not Available Not Available bupropion HCl XL 150 mg 24 hr tablet, extended release Take 1 tablet every day by oral route. 04/18 completed Not Available Not Available Not Available metoprolol tartrate 25 mg tablet active Not Available Not Available No t Available ClearLax 17 gram/dose oral powder 07/23 completed Not Available Not Available Not Available Falmina (28) 0.1 mg-20 mcg tablet 12/10 completed Not Available Not Available Not Available Myrbetriq 50 mg tablet,exte nded release Take 1 tablet every day by oral route. 04/18 completed Not Available Not Available Not Available Nuvessa 1.3 % (65 mg/5 gram) vaginal gel Insert 1 applicato rful by vaginal route. 10/19 completed Not Available Not Available Not Available Vitals Date Recorded Body height Provider Name an d Address Organization Details Last Updated DateTime 12/11/2023 167.64 cm TELLO SHERMAN [facility]. 12/11/2023 16:30:09 Date Recorded Body weight Provider Name an d Address Organization Details Last Updated DateTime 12/16/2023 91387.917611 g Francy Nicole DO [address] [place] [address], [address], [facility]. 12/22/2023 12:17:21 Date Recorded Body height Body mass index (BMI) Systolic blood pressure Diastolic blood pressure Provider Name and Address Organization Details Last Updated DateTime 12/16/2023 167.64 cm 22.2 kg/m2 110 mm[Hg] 70 mm[Hg] Mychal Parnell [employer] 12/16/2023 09:55:12 Date Recorded Body weight Provider Name an d Address Organization Details Last Updated DateTime 12/18/2023 38246.58269 g Geno BREWSTER [address] [place] [address], [address], [facility]. 12/18/2023 11:47:26 Date Recorded Body height Body mass index (BMI) Provider Name and Address Organization Details Last Updated DateTime 12/18/2023 167.64 cm 22.1 kg/m2 TELLO CONKLINCO [facility]. 12/18/2023 11:43:41 Date Recorded Body height Body mass index (BMI) Body weight Oxygen saturation Oxygen saturation in Arterial blood by Pulse oximetry Heart rate Body temperature Systolic blood pressure Diastolic blood pressure Provider Name and Address Organization Details Last Updated DateTime 167.64 cm 22.3 kg/m2 40742.7 5 g 98 % 98 % 81 /min 98.3 [degF] 113 mm[Hg] 73 mm[Hg] Shani Bowser [facility]. 13:12:47 Date Recorded Body height Provider Name an d Address Organization Details Last Updated DateTime 01/15/2024 167.64 cm Mychal Parnell [employer] 01/15/2024 16:54:15 Date Recorded Body weight Systolic blood pressure Diastolic blood pressure Provider Name and Address Organization Details Last Updated DateTime 01/15/2024 37083.5623 2 g 112 mm[Hg] 62 mm[Hg] Ean Means [employer] 01/15/2024 16:59:36 Social History Question Answer Notes LastModified by Organizat ion Details LastModified Time Tobacco Smoking Status Former Smoker BORIS goodman, [facility]. 07/23/2023 08:27:54 What Is Your Level Of Caffeine Consumption? Heavy Information not available 12/10/2022 Are You A Caregiver? No Information not available 12/10/2022 In The 14 Days Before Symptom Onset, Have You Had Close Contact With A Laboratory-confi rmed COVID-19 While That Case Was Ill? No Information not available 12/10/2022 In The 14 Days Before Symptom Onset, Have You Had Close Contact With A Person Who Is Under Investigation For COVID-19 While That Person Was Ill? No Information not available 12/10/2022 Have You Been To An Area Known To Be High Risk For COVID-19? No Information not available 12/10/2022 What Type Of Diet Are You Following? REGULAR Information not available 12/10/2022 What Is The Highest Grade Or Level Of School You Have Completed Or The Highest Degree You Have Received? [id number] Information not available 12/10/2022 Who Is Your Employer? [employer] Information not available 12/10/2022 Have There Been Any Changes To Your Family Or Social Situation? No Information not available 12/10/2022 When Did You Quit Smoking? 1-5yearssinmarya alessandra [email or web address] Information not available 07/23/2023 Which Of Your Hands Is Dominant? Right Information not available 12/10/2022 What Was The Date Of Your Most Recent Tobacco Screening? 01/15/2024 Information not available 01/15/2024 What Is Your Current Pack Years? 10packyears [email or web address] Information not available 07/23/2023 Have You Ever Been Counseled For Unhealthy Alcohol Use? No Information not available 12/10/2022 Do You Use Protection During Sex? No Information not available 12/10/2022 Do You Use Protection Against STDs? No Information not available 12/09/2023 What Is Your Relationship Status? Domestic Partner Information not available 12/09/2023 Are You Sexually Active? Yes Information not available 12/10/2022 Do You Participate In Social Media? Yes Information not available 12/10/2022 Has Tobacco Cessation Counseling Been Provided? Yes Information not available 10/20/2023 On What Date Was Tobacco Cessation Counseling Provided? 01/15/2024 Information not available 01/15/2024 Have You Recently Traveled Abroad? No Information no t available 12/10/2022 Are You Currently In School? No Information not available 12/10/2022 What Contraceptive Method Was Reported At Start Of This Visit? None Information not available 12/09/2023 Do You Have Any Dietary Restrictions? No Information not available 12/10/2022 Sex: Female Functional Status Question Answer Note LastModified by Organizat ion Details LastModified Time Do you use any illicit or recreational drugs? No Information not available 12/10/2022 Do you or have you ever used any other forms of tobacco or nicotine? Yes Information not available 12/10/2022 What is your level of alcohol consumption? Occasional Information not available 12/10/2022 Do you or have you ever used smokeless tobacco? Never used smokeless tobacco [place] [id number] Information not available 07/23/2023 Are you currently employed? Yes Information not available 12/10/2022 Do you have transportation difficulties? No Information not available 12/10/2022 Are you able to walk? [employer] Information not available 12/10/2022 Do you have difficulty doing errands alone? No Information not available 12/10/2022 What is your occupation? [employer] Information not available 12/10/2022 Do you have difficulty dressing or bathing? No Information not available 12/10/2022 Do you or have you ever used e-cigarettes or vape? Former user of electronic cigarettes Information not available 12/09/2023 What is your exercise level? Occasional Information not available 12/10/2022 Mental Status None recorded. Family History Relationship Description Onset Age of this Age Resolved Age Notes LastModified by Organization Details LastModified Time Mother Disease of liver [email or web address] Not available 12/10/2022 14:52:23 Medical History Condition Response Other Y Emergency room visit since last appointm ent. N Hospitalizations N Gynecological History Statement/Question Response Abnormal Pap Y Flow Moderate Date of LMP 03/25/2023 HPV Vaccine Y Duration of Flow (days) 5 Current Control Method Age at Menarche 9 Age at First Child 16 Sexually Active? Y Menses Monthly Y Date of Last Pap Smear 12/10/2022 Sexual Problems? N LMP Approximate Obstetrics History GPAL:G 6 P 3 0 3 3 Type Value Full Term 3 Spontaneous 3 Living 3 Total 6 Immunizations Vaccine Type Date Status Note Provider Nam e and Address Organization Details Recorded Time IPV 2 completed TELLOBrowsarity SHERMAN null, [employer], [employer] 12/10/2022 14:42:16 MMR 2 completed TELLOGrivyLASCO null, [facility]. 12/10/2022 14:42:16 COVID-19 vaccine, vector-nr, rS-Ad26, PF, 0.5 mL 1 completed TE[employer]OGrivyLASCO [employer], [employer] 12/10/2022 14:42:16 Tdap 0 completed [employer] null, [employer] 12/10/2022 14:42:16 varicella 1 completed [employer] null, [employer] 12/10/2022 14:42:16 HPV, quadrivalent 1 completed [employer] null, [employer] 12/10/2022 14:42:16 Hep A, ped/adol, 2 dose 1 completed TELLOBrowsarity SHERMAN null, [employer] 12/10/2022 14:42:16 Hep A, ped/adol, 2 dose 0 completed [employer] null, [employer] 12/10/2022 14:42:16 DTaP, unspecified formulation 2 completed [employer] null, [employer] 12/10/2022 14:42:16 Influenza, split virus, quadrivalent, PF 3 completed Francy goodman [facility] [facility] [place] 09/22/2023 12:41:20 Past Encounters Encounter ID Performer Location Encounter Start Date Encounter Closed Date Diagnosis/Indication Diagnosis SNOMED-CT Code Diagnosis ICD10 Code Diagnosis Note [id number] [facility] [place] [address] 12/10/2022 14:38:30 12/10/2022 16:46:26 Pityriasis versicolor 10254587 B36.0 Depressive disorder 3548 9007 F32.A Overactive urinary bladder 318542493 N32.81 Mixed urin glenn incontinence 671390072 N39.46 Screening for malignant neoplasm of cervix 354237276 Z12.4 [id number] [facility]onda [facility] Eric [place] [address] 01/16/2023 14:12:44 01/16/2023 15:00:55 Vaginal irritation 958856375 N89.8 Acute pharyngitis 011517 003 J02.9 [id number] [facility]onda [facility] Eric [place] [address] 02/04/2023 07:51:37 02/05/2023 10:48:21 Pelvic and perineal pain 785190069 R10.2 Genital he rpes simplex 54710603 A60.9 [id number] Yolette Sotelo [address] [address] 04/18/2023 10:23:36 04/18/2023 11:55:33 Acute pharyngitis 113918461 J02.9 Influenza caused by Influenza A virus 666393222 J09.X2 off work until until Thursday [id number] Bharati Tong [address] [address] 04/21/2023 08:50:39 04/21/2023 09:56:48 Missed period 48124502 N92.5 Influenza caused by Influenza A virus 045337700 J09.X2 [id number] BG CATALAN, [address] [place] [address] 07/23/2023 08:09:18 07/23/2023 09:21:43 Viral screening 275221380 Z11.59 Streptococ farhan sore throat 62139672 J02.0 [id number] Rhonda [facility] [address] [place] [address] 09/22/2023 12:09:54 09/22/2023 13:01:44 Vaginal irritation 804949016 N89.8 [id number] Rhonda [facility] [place] [address] 10/20/2023 13:11:29 10/20/2023 15:12:45 Vaginal irritation 951203532 N89.8 [id number] TAMIA WILL MD [address] [address] [address] [facility] [place] [address] 12/09/2023 09:32:48 12/09/2023 10:44:16 Missed period 20639579 N92.5 Intrauteri ne 19060282 Z34.90 [id number] TAMIA WILL MD [facility] [address] [place] [address] 12/11/2023 16:01:47 12/11/2023 16:33:10 [id number] Francy Nicole DO [facility] [address] [place] [address] 12/16/2023 09:48:15 12/16/2023 16:56:35 [id number] Z33.1 Dating US scheduled in 2 days Tachycardia 8151616 R00. 0 Prescribed metoprolol 25mg QD, has been taking 12.5 [id number] TAMIA WILL MD [facility] [address] [place] [address] 12/18/2023 10:55:41 12/18/2023 11:59:42 Intrauterine 24973621 Z34.90 [id number] Jocelyn Finney, [facility] - [address] [address] 01/06/2024 12:33:43 01/06/2024 15:00:47 Sore throat 483232349 J02.9 Acute pharyngitis 433396 003 J02.9 Gestation period, 9 weeks 082489 Z3A.09 Normal weight 52910290 Z 68.22 [id number] Francy Nicole DO [facility] [address] [place] [address] 01/15/2024 16:31:36 01/15/2024 17:20:47 [id number] Z33.1 Health Concerns Section Related Observation LastModified by Organization Detai ls LastModified Time None Recorded Concern Status LastModified by Organization Details LastModified Time None Recorded Advance Directives Directive None Recorded Payers Insurance Date Sequence Insurance Name Policy Number Policy Zaidi Covered Member ID Zaidi Member ID Guarantor Name 06/13/2024 1 [facility] (MEDICAID HMO) [facility] [id number] [facility] 06/01/2023 1 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 [facility] 12/16/2023 SLIDING FEE SCHEDULE - DISCOUNT [facility] 12/16/2023 1 *SELF PAY* [facility] 12/16/2023 SLIDING FEE SCHEDULE - DISCOUNT [facility] 03/07/2024 2 *SELF PAY* [facility] 12[facility]16/2023 [facility] [id number] [facility] Notes Date Note Type Note Provider Name and Address Organization Details Recorded Time 12/11/2023 text/html Patient appears to have a viral syndrome. She states she was seen at the hospital tested negative for flu and COVID. She has some mild diarrhea and appears to be hydrating reasonably. She does have some abdominal cramping no bleeding. I reviewed her beta-hCG and noted it was slightly over 11,000. I called her and asked her to come in for repeat ultrasound. Scan today reveals an intrauterine gestational sac with a yolk sac perhaps rudimentary pole. She still has the previously seen corpus luteal cyst the contralateral ovary is unremarkable there is minimal free fluid the uterus looks normal there is no cervical motion tenderness or pelvic tenderness on exam. She will go home rest hydrate. She does have support at home. We will see her back on Thursday to rescan her. She is given warnings. TAMIA WILL MD [address] [place], [address], [employer]. 12/11/2023 16:35:43 12/16/2023 text/html This is a 23 y/o at 6w1d by LMP who presents for hospital follow-up. She reports an episode about 1 week ago where she woke up from sleep and felt her heart racing. She went the ER and was noted to be tachcycardic and was discharged home. She had a second episode a couple days later and this time was admitted to the hospital and started on metoprolol 25. She states that she felt this dose was too high and she has been cutting the tablets in half and taking 12.5mg. She admits that she felt anxious after waking up, but does not think this was a panic attack. She denies abdominal pain or vaginal bleeding. She is scheduled for a dating US at her next visit in two days. Francy Nicole DO [address] [place], [address], [employer] 12/22/2023 12:21:03 01/06/2024 text/html Sore ThroatRepor sathish bypatient.Location:b ilateral Onset/Timing:sudden Duration:started 3 day(s) ago Severity:worsening Context:others with similar symptoms; daughter has strep. Associated Symptoms:no fever; no swollen glands; no dysphagia; no nausea; no vomiting; no appetite loss; no headache; no itching throat; no choking; no globus sensation; no lethargy; no rash; no abdominal pain; no conjunctivitis; no drooling; no stridor; no dyspnea; no stiff neck; no muffled voice;cough NEHEMIAH Sims [address] [place], [address], [employer]. 01/06/2024 14:37:51 01/15/2024 text/html This is a 23 y/o at 10w4d who presents for OB visit. She was recently seen in the ED for nausea and vomiting and was diagnosed with a viral GI illness. She is doing better today and denies nausea or vomiting. She denies abdominal pain or vaginal bleeding. She denies any palpitations and will receive results for her Halter monitor from her lacquer sprayer next week. Francy Nicole, DO [address] [place] [address], [address], [facility] [employer], [employer] 01/16/2024 14:11:27 OBGyn Episode Ob Episode Information Episode Created Date Number of Fetuses Patient Bloodtype Patient rh Status Prepregnancy Weight lbs Domestic Partner Domestic Partner Phone Father Name Case Maker Status 12/11/19 1 CLOSED Fetus Data First Name Last Name Admitted to NICU Weight (g) Sex Living Outcome Pediatric Complications Fetus ID Race Codes Race Delivery Type M Full Term [id number] Vaginal Delivery Cole Calculation Initial Cole Date Initial Exam Date Initial Exam Provider Initial Ultrasound Date Last Menstrual Period Date Ultra Sound Weeks Gestation 0 Eighteen To Twenty Week Cole Update Ultra Sound Date Fundal Height At Umbil Quickening Date Ultra Sound Latest Weeks Gestation Final Cole Confirmed By Final Cole Confirmed Date Final Cole Date Ultra Sound Latest Days Gestation 0 0 Menstrual History Last Menstrual Date Menses Monthly On Bcp Conception Prior Menses Frequency Hcg Plus Date Menarche Onset Age Delivery Information Delivery Date Delivery Type Labor Anesthesia Weeks Gestation Incision Type Labor Labor Length Hrs Delivered By Post Complications Tubal Sterilization Discharge Date Comments Discharge Information Feeding Method Contraceptive Method Maternal HG B and HCT Levels Ob Episode Information Episode Created Date Number of Fetuses Patient Bloodtype Patient rh Status Prepregnancy Weight lbs Domestic Partner Domestic Partner Phone Father Name Case Maker Status 12/11/19 23 1 CLOSED Fetus Data First Name Last Name Admitted to NICU Weight (g) Sex Living Outcome Pediatric Complications Fetus ID Race Codes Race Delivery Type F Full Term [id number] Vaginal Delivery Cole Calculation Initial Cole Date Initial Exam Date Initial Exam Provider Initial Ultrasound Date Last Menstrual Period Date Ultra Sound Weeks Gestation 0 Eighteen To Twenty Week Cole Update Ultra Sound Date Fundal Height At Umbil Quickening Date Ultra Sound Latest Weeks Gestation Final Cole Confirmed By Final Cole Confirmed Date Final Cole Date Ultra Sound Latest Days Gestation 0 0 Menstrual History Last Menstrual Date Menses Monthly On Bcp Conception Prior Menses Frequency Hcg Plus Date Menarche Onset Age Delivery Information Delivery Date Delivery Type Labor Anesthesia Weeks Gestation Incision Type Labor Labor Length Hrs Delivered By Post Complications Tubal Sterilization Discharge Date Comments 6 Discharge Information Feeding Method Contraceptive Method Maternal HG B and HCT Levels Ob Episode Information Episode Created Date Number of Fetuses Patient Bloodtype Patient rh Status Prepregnancy Weight lbs Domestic Partner Domestic Partner Phone Father Name Case Maker Status 12/18/19 24 1 CLOSED Fetus Data First Name Last Name Admitted to NICU Weight (g) Sex Living Outcome Pediatric Complications Fetus ID Race Codes Race Delivery Type 2489.94 [id number] F true Full Term 8847 [id number] White Problems Problem Notes Problem Name Start Date End Date Resolution Snomed Code Not e Tachycardia 12/22/2023 [id number] On meto prolol 12.5mg QD Cole Calculation Initial Cole Date Initial Exam Date Initial Exam Provider Initial Ultrasound Date Last Menstrual Period Date Ultra Sound Weeks Gestation 08/09/2023 12/18/2023 [id number] 12/18/2023 11/03/2023 6 Eighteen To Twenty Week Cole Update Ultra Sound Date Fundal Height At Umbil Quickening Date Ultra Sound Latest Weeks Gestation Final Cole Confirmed By Final Cole Confirmed Date Final Cole Date Ultra Sound Latest Days Gestation 0 [email or web address] 12/18/2023 08/09/19 25 0 Pre- Flowsheet Flowsheet Date 12/16/2023 Zepeda Score Blood Edema Fundus Height Fundus Units Glucose Ketones Leukocytes Nitrite Labor Signs Protein Cervic Dilation Cervic Effacement Cervic Station Type Weight in lbs Pre/Post Dialysis Refused With clothes 137.497564149439 BP Diastolic BP Location Tested BP Systolic BP Type 70 R arm 110 sitting Fetus Heart Rate Present Fetus Movement Comments Hospital f/u for tachycardia , taking metoprolol 12.5mg QD, doing well. Will f/u with dating US as scheduled in 2 days. Flowsheet Date 12/18/2023 Zepeda Score Blood Edema Fundus Height Fundus Units Glucose Ketones Leukocytes Nitrite Labor Signs Protein Cervic Dilation Cervic Effacement Cervic Station Type Weight in lbs Pre/Post Dialysis Refused With clothes 137.267860073679 BP Diastolic BP Location Tested BP Systolic BP Type sitting Fetus Heart Rate Present Fetus Movement Comments Scan 6.3 week CRL. Labs toda y, 4 weeks Flowsheet Date 01/06/2024 Zepeda Score Blood Edema Fundus Height Fundus Units Glucose Ketones Leukocytes Nitrite Labor Signs Protein Cervic Dilation Cervic Effacement Cervic Station Type Weight in lbs Pre/Post Dialysis Refused With clothes 138.844037057042 BP Diastolic BP Location Tested BP Systolic BP Type 73 R arm 113 sitting Fetus Heart Rate Present Fetus Movement Comments Flowsheet Date 01/15/2024 Zepeda Score Blood Edema Fundus Height Fundus Units Glucose Ketones Leukocytes Nitrite Labor Signs Protein Cervic Dilation Cervic Effacement Cervic Station none neg Type Weight in lbs Pre/Post Dialysis Refused With clothes 136.606782848751 BP Diastolic BP Location Tested BP Systolic BP Type 62 112 sitting Fetus Heart Rate Present A 171 Present Fetus Movement Comments Recent GI illness, doing bet ter. -Abd pain or VB. Completed holter monitor and awaiting results from cardiology, doing well on metoprolol. Qnatal today. Menstrual History Last Menstrual Date Menses Monthly On Bcp Conception Prior Menses Frequency Hcg Plus Date Menarche Onset Age 0411/03/2023 Delivery Information Delivery Date Delivery Type Labor Anesthesia Weeks Gestation Incision Type Labor Labor Length Hrs Delivered By Post Complications Tubal Sterilization Discharge Date Comments 4 36.4 Discharge Information Feeding Method Contraceptive Method Maternal HG B and HCT Levels
--- OUTSIDE RECORDS SUMMARY | 2025-01-06 11:16 | XMS_ITS | Encounter Summary ---
Author Organization Healthcare Address [address] [place] [address] Care Team Providers Care Real Estate Agency Principal Name Role Phone Molly Louis MD Primary Care Provider [phone] Angela Oleary RN Unavailable Unavailable Encounter Details [...] often do you attend chur ch or hoahaoism services? Never 02/22/2024 Do you belong to [...] Recorded Patient Health Questionnaire-2 Score 2 09/06/2024 [facility] - Occupational Stress Questionnaire Answer Date [...] in a retirement (including now)? No 02/09/2024 [place] Depression Scale Answer Date Recorded [place] Depression Scale Total 6 08/08/2024 The thought [...] drink first t casi in the morning (EYE-ELECTRIC KNIFE OPERATOR) to steady your nerves or to [...] EDT Appointment [facility] [address] [place] [address] Cody Barnett MD [address] [place] [address] 02/10/2025 10:00 AM EDT [facility] [address] [place] [address] Rachel Khan PA [address] [place] [address] 02/16/2025 1:20 PM EDT Office Visit [facility] [place] [address] [place] [address] Courtney Torres MD [address] [place] [address] 03/15/2025 3:30 PM EDT Consult [facility] [address], [address] [place] [address] Kendy Sanchez, DIVERSIFIED CROPS FARMER [address] [place] [address] 04/17/2025 2:00 PM EDT Office Visit [facility] Medicine Specialties [address], [address] [place] [address] Silverio Tam PA [address] [place] [address] documented as of this encounter Goals Goal [...] documented as of this encounter Care Teams Real Estate Agency Principal Relationship Specialty Start Date End Date Molly Louis MD [id number] PCP - General Family Medicine 02/09/24 11/15/24 Angela Oleary, RN [facility] Registered Nurse Cardiology 02/17/24 documented as of this encounter
--- OUTSIDE RECORDS SUMMARY | 2025-01-06 11:16 | XMS_ITS | Encounter Summary ---
Author Organization Healthcare Address [address] [place] [address] Care Team Providers Care Swage Tender Name Role Phone Angela Oleary RN Unavailable Unavailable Rey Wyatt MD Primary Care Provider [phone] Encounter Details Date Type Department Care Team [...] week 02/22/2024 How often do you attend [facility] or yazdanism services? Never 02/22/2024 Do you [...] Recorded Patient Health Questionnaire-2 Score 0 11/16/2024 [facility] - Occupational [...] in a jail (including now)? No 02/09/2024 [place] Depression Scale Answer Date Recorded [place] Depression Scale Total 6 08/08/2024 The thought [...] drink first t casi in the morning (EYE-SALES PROPERTY MANAGER) to steady your nerves or to get rid of a hangover? 0 07/16/2024 CAGE Questionnaire Score 0 024 Utilities Answer Date Recorded In the past 12 months has th e [employer], gas, oil, or water company threatened to [...] EDT Appointment [facility] [address] [place] [address] Cody Barnett MD [address] [place] [address] 02/10/2025 10:00 AM EDT Office Visit [facility] Endocrinology [address] [place] [address] Rachel Khan PA [address] [facility] [address] [place] [address] 02/16/2025 1:20 PM EDT Office Visit [facility] [place] [address] [facility], [address] [place] [address] Courtney Torres MD [address] [facility] [address] [place] [address] 03/15/2025 3:30 PM EDT Consult [facility] [address], 1[address] [place] [address] Kendy Sanchez APRN [address] [place] [address] 04/17/2025 2:00 PM EDT Office Visit [facility] Medicine Specialties [address], [address] [place] [address] Silverio Tam PA [address] [place] [address] documented as of this encounter Goals Goal [...] documented as of this encounter Care Teams Swage Tender Relationship Specialty Start Date End Date Rey Wyatt MD [address] [facility] [address] [place] [address] PCP - General 11/16/24 Angela Oleary, RN [facility] Registered Nurse Cardiology 02/17/24 documented as of this encounter
--- OUTSIDE RECORDS SUMMARY | 2025-01-06 11:16 | XMS_ITS | Encounter Summary ---
Author Organization Healthcare Address [address] [place] [address] Care Team Providers Care International Operations Manager Name Role Phone Molly Louis MD Primary Care Provider [phone] Angela Oleary RN Unavailable Unavailable Encounter Details [...] often do you attend chur ch or rastafarian services? Never 02/22/2024 Do you belong to [...] Recorded Patient Health Questionnaire-2 Score 2 09/06/2024 [facility] - Occupational Stress Questionnaire Answer Date [...] health care facility (including now)? No 02/09/2024 [place] Depression Scale Answer Date Recorded [place] Depression Scale Total 6 08/08/2024 The thought [...] drink first t casi in the morning (EYE-GRADE AND CENTER MARKER) to steady your nerves or to get [...] EDT Appointment [facility] [address] [place] [address] Cody Barnett MD [address] [place] [address] 02/10/2025 10:00 AM EDT [facility] [address] [place] [address] Rachel Khan PA [address] [place] [address] 02/16/2025 1:20 PM EDT Office Visit [facility] [place] [address] [place] [address] Courtney Torres MD [address] [place] [address] 03/15/2025 3:30 PM EDT Consult [facility] [address], 1[address] [place] [address] Kendy Sanchez, COFFEE ROASTER HELPER [address] [place] [address] 04/17/2025 2:00 PM EDT Office Visit [facility] Medicine Specialties [address], [address] [place] [address] Silverio Tam PA [address] [place] [address] documented as of this encounter Goals Goal [...] documented as of this encounter Care Teams International Operations Manager Relationship Specialty Start Date End Date Molly Louis MD [address] [id number] PCP - General Family Medicine 02/09/24 11/15/24 Angela Oleary, RN [facility] Registered Nurse Cardiology 02/17/24 documented as of this encounter
--- OUTSIDE RECORDS SUMMARY | 2025-01-06 11:16 | XMS_ITS | Encounter Summary ---
Author Organization Healthcare Address [address] [place] [address] Care Team Providers Care Separator Operator [employer] Name Role Phone Angela Oleary RN Unavailable Unavailable Rey Wyatt MD Primary Care Provider [phone] Encounter Details Date Type Department Care Team [...] week 02/22/2024 How often do you attend [facility] or scientology services? Never 02/22/2024 Do you belong to [...] Recorded Patient Health Questionnaire-2 Score 0 12/15/2024 [facility] - Occupational [...] in a fdc (including now)? No 02/09/2024 [place] Depression Scale Answer Date Recorded [place] Depression Scale Total 6 08/08/2024 The thought [...] drink first t casi in the morning (EYE-HYDROELECTRIC PLANT ELECTRICAL ENGINEER) to steady your nerves or to get rid of a hangover? 0 07/16/2024 CAGE Questionnaire Score 0 024 Utilities Answer Date Recorded In the past 12 months has th e SHER[employer] assistant, gas, oil, or water company threatened to [...] EDT Appointment [facility] [address] [place] [address] Cody Barnett MD [address] [place] [address] 02/10/2025 10:00 AM EDT Office Visit [facility] Endocrinology [address] [place] [phone] Rachel Khan PA [address] [facility] [address] [place] [address] 02/16/2025 1:20 PM EDT Office Visit [facility] [address] [place] [address] Courtney Torres MD [address] [place] [address] 03/15/2025 3:30 PM EDT Consult [facility] [address], [address] [place] [address] Kendy Sanchez APRN [address] [place] [address] 04/17/2025 2:00 PM EDT Office Visit [facility] Medicine Specialties [address], [address] [place] [address] Silverio Tam PA [address] [place] [address] documented as of this encounter [...] documented as of this encounter Care Teams Separator Operator [employer] Relationship Specialty Start Date End Date Rey Wyatt MD [address] [place] [address] PCP - General 11/16/24 Angela Oleary, RN [facility] Registered Nurse Cardiology 02/17/24 documented as of this encounter
--- OUTSIDE RECORDS SUMMARY | 2025-01-06 11:16 | XMS_ITS | Encounter Summary ---
Author Organization Healthcare Address [address] [place] [address] Care Team Providers Care Light Truck Driver Name Role Phone Angela Oleary RN Unavailable Unavailable Rey Wyatt MD Primary Care Provider [phone] Encounter Details Date Type Department Care Team [...] week 02/22/2024 How often do you attend [facility] or voodoo services? Never 02/22/2024 Do you belong to any clubs o r organizations such as oriental orthodox groups, unions, fraternal or athletic groups, [...] Recorded Patient Health Questionnaire-2 Score 0 11/16/2024 [facility] of Occupat ional Health - Occupational [...] in a usp (including now)? No 02/09/2024 [place] Depression Scale Answer Date Recorded [place] Depression Scale Total 6 08/08/2024 The thought [...] drink first t casi in the morning (EYE-GAS WELL DRILLING MANAGER) to steady your nerves or to get rid of a hangover? 0 07/16/2024 CAGE Questionnaire Score 0 024 Utilities Answer Date Recorded In the past 12 months has th e [employer], gas, oil, or water company threatened to [...] Appointment [facility] [address] [place] [address] Coyd Barnett MD [address] [place] [address] 02/10/2025 10:00 AM EDT [facility] [address] [place] [address] Rachel Khan PA [address] [place] [address] 02/16/2025 1:20 PM EDT Office Visit [facility] [place] [address], [address] [place] [address] Courtney Torres MD [address] [place] [address] 03/15/2025 3:30 PM EDT Consult [facility] [address], 1st [place] [address] Kendy Sanchez APRN [address] [place] [address] 04/17/2025 2:00 PM EDT Office Visit [facility] Medicine Specialties [address], 2nd [place] [address] Silverio Tam PA [address] [place] [address] documented as of this encounter [...] documented as of this encounter Care Teams Light Truck Driver Relationship Specialty Start Date End Date Rey Wyatt MD [address] [place] [address] PCP - General 11/16/24 Angela Oleary, RN [facility] Registered Nurse Cardiology 02/17/24 documented as of this encounter
--- OUTSIDE RECORDS SUMMARY | 2025-01-06 11:16 | XMS_ITS | Encounter Summary ---
Author Organization Healthcare Address [address] [place] [address] Care Team Providers Care Systems Programmer Name Role Phone Angela Oleary RN Unavailable Unavailable Rey Wyatt MD Primary Care Provider [phone] Encounter Details Date Type Department Care Team [...] week 02/22/2024 How often do you attend [facility] or episcopal services? Never 02/22/2024 Do you belong to any clubs o r organizations such as voodoo groups, unions, fraternal or athletic groups, or [...] Recorded Patient Health Questionnaire-2 Score 0 11/16/2024 [facility] of Occupat ional Health - [...] place to sleep or slept in a chcf (including now)? No 02/09/2024 [place] Depression Scale [...] first t casi in the morning (EYE-SUPERVISOR FRAMING MILL) to steady your nerves or to get [...] Appointment [facility] Endoscopy [address] [place] [address] Cody Barnett MD [address] [place] [address] 02/10/2025 10:00 AM EDT [facility] [address] [place] [address] Rachel Khan PA [address] [place] [address] 02/16/2025 1:20 PM EDT Office Visit [facility] [place] [address] [place] [address] Courtney Torres MD [address] [place] [address] 03/15/2025 3:30 PM EDT Consult [facility] [address], 1st [place] [address] Kendy Sanchez, SUPERVISOR [employer] [address] [place] [address] 04/17/2025 2:00 PM EDT Office Visit [facility] Medicine Specialties [address], 2[address] [place] [address] Silverio Tam PA [address] [place] [address] documented as of this encounter [...] documented as of this encounter Care Teams Systems Programmer Relationship Specialty Start Date End Date Rey Wyatt MD [address] [place] [address] PCP - General 11/16/24 Angela Oleary, RN [facility] Registered Nurse Cardiology 02/17/24 documented as of this encounter
--- OUTSIDE RECORDS SUMMARY | 2025-01-06 11:16 | XMS_ITS | Encounter Summary ---
Author Organization Healthcare Address [address] [place] [address] Care Team Providers Care Health Informatics Instructor Name Role Phone Angela Oleary RN Unavailable Unavailable Rey Wyatt MD Primary Care Provider [phone] Encounter Details Date Type Department Care Team (Late st Contact Info) Description 12/09/2024 Orders Only [facility] Medicine Specialties [address], 2nd [place] [address] Silverio Tam PA [address] [place] [address] Social History Tobacco Use Types [...] often do you attend chur ch or yarsani services? Never 02/22/2024 Do you belong to any clubs o r organizations such as roman catholic groups, unions, fraternal or athletic groups, [...] Recorded Patient Health Questionnaire-2 Score 0 11/16/2024 [facility] - Occupational Stress Questionnaire Answer Date [...] in a longterm (including now)? No 02/09/2024 [place] Depression Scale Answer Date Recorded [place] Depression Scale Total 6 08/08/2024 The thought [...] drink first t casi in the morning (EYE-RADIAL ROUTER OPERATOR) to steady your nerves or to get rid of a hangover? 0 07/16/2024 CAGE Questionnaire Score 0 024 Utilities Answer Date Recorded In the past 12 months has th e [employer], gas, oil, or water company threatened to [...] EDT Appointment [facility] Endoscopy [address] [place] [address] Cody Barnett MD [address] [place] [address] 02/10/2025 10:00 AM EDT Office Visit [facility] Endocrinology [address] [place] [address] Rachel Khan PA [address] [facility] [address] [place] [address] 02/16/2025 1:20 PM EDT Office Visit [facility] [place] [address] [facility], [address] [place] [address] Courtney Torres MD [address] [facility] [address] [place] [address] 03/15/2025 3:30 PM EDT Consult [facility] [address], 1[address] [place] [address] Kendy Sanchez APRN [address] [place] [address] 04/17/2025 2:00 PM EDT Office Visit [facility] Medicine Specialties [address], 2[address] [place] [address] Silverio Tam PA [address] [place] [address] documented as of this encounter [...] documented as of this encounter Care Teams Health Informatics Instructor Relationship Specialty Start Date End Date Rey Wyatt MD [address] [place] [address] PCP - General 11/16/24 Angela Oleary, RN [facility] Registered Nurse Cardiology 02/17/24 documented as of this encounter
--- OUTSIDE RECORDS SUMMARY | 2025-01-06 11:16 | XMS_ITS | Encounter Summary ---
Author Organization Healthcare Address [address] [id number] Care Team Providers Care Real Estate Instructor Name Role Phone Molly Louis MD Primary Care Provider [phone] Angela Oleary RN Unavailable Unavailable Encounter Details Date Type Department Care Team (Late st Contact Info) Description 11/14/2024 Orders Only [facility] Endocrinology [address] [phone] Abundio Kyle MBBS [address] [place], [place] [phone] Thyrotoxicosis with Tricia thyroiditis (Primary Dx) Social [...] often do you attend chur ch or methodist services? Never 02/22/2024 Do you belong to any clubs o r organizations such as alevism groups, unions, fraternal or athletic groups, or [...] Patient Health Questionnaire-2 Score 2 09/06/2024 [facility] - Occupational Stress Questionnaire Answer [...] place to sleep or slept in a intermediate (including now)? No 02/09/2024 [place] Depression Scale Answer Date Recorded [place] Depression Scale Total 6 08/08/2024 The thought [...] drink first t casi in the morning (EYE-DIABETIC EDUCATOR) to steady your nerves or to [...] EDT Appointment [facility] [address] [place] [address] Cody Barnett MD [address] [place] [address] 02/10/2025 10:00 AM EDT Office Visit [facility] Endocrinology [address] [place] [address] Rachel Khan PA [address] [place] [address] 02/16/2025 1:20 PM EDT Office Visit [facility] [place] [employer] [address] [place] [address] Courtney Torres MD [address] [place] [address] 03/15/2025 3:[address] [facility] [address], 1st [place] [address] Kendy Sanchez, TRISTAN [address] [place] [address] 04/17/2025 2:00 PM EDT Office [facility] Medicine Specialties [address], 2nd [place] [address] Silverio Tam PA [address] [place] [address] documented as of this encounter Goals Goal Patient Goal Type Associated Problems Recent Progress Patient-Stated? Author Delayed Delivery Care Plan CPM S22 PP LABOR (OBSTETRICS) No Open Scheduling, Background documented as of this encounter Results * T4, free (12/15/2024 3:29 PM EDT) Free T4, Plasma 1.7 0.8 - 1.7 ng/dL 12/15/2024 4:54 PM EDT [facility] Blood Venous blood specimen / Unknown Venipuncture / Unknown 12/15/2024 3:29 PM EDT 12/15/2024 3:30 PM EDT Narrative [facility] - 12/15/2024 4:54 PM EDT Free T4 Trimester Specific Ranges 1st Trimester 0.9 - 1.50 ng/dL 2nd Trimester 0.7 - 1.40 ng/dL 3rd Trimester 0.7 - 1.24 ng/dL us Roland Wooten MD LAB BLOOD ORDERABLES Final Resu lt Performing Organization Address [facility] Co de Phone Number [facility] [address] [place] [address] * (ABNORMAL) TSH (12/15/2024 3:29 PM EDT) Thyroid Stimulating Hormone, Plasma <0.01(L) 0.40 - 4.20 uIU/mL 12/15/2024 4:54 PM EDT [facility] Blood Venous blood specimen / Unknown Venipuncture / Unknown 12/15/2024 3:29 PM EDT 12/15/2024 3:30 PM EDT Narrative [facility] - 12/15/2024 4:54 PM EDT Trimester Specific Ranges TSH ( IU/mL) 1st Trimester 0.1 - 3.0 2nd Trimester 0.19 - 4.06 3rd Trimester 0.3 - 3.7 us Roland Wooten MD LAB BLOOD ORDERABLES Final Resu lt Performing Organization Address [facility] Co de Phone Number [facility] [address] [place] [address] documented in this encounter Visit Diagnoses Diagnosis [...] of this encounter Care Teams Real Estate Instructor Relationship Specialty Start Date End Date Molly Louis MD [address] [place], [place] [id number] PCP - General Family Medicine 02/09/24 11/15/24 Angela Oleary, RN [facility] Registered Nurse Cardiology 02/17/24 documented as of this encounter
--- OUTSIDE RECORDS SUMMARY | 2025-01-06 11:16 | XMS_ITS | Encounter Summary ---
Author Organization Healthcare Address [address] [place] [address] Care Team Providers Care Deicer Repairer Electric Name Role Phone Molly Louis MD Primary Care Provider [phone] Angela Oleary RN Unavailable Unavailable Rey Wyatt MD Primary Care Provider [phone] Encounter Details Date Type Department Care Team (Late st Contact Info) Description 10/21/2024 Telephone [facility] [place] [address] [place] [address] None, None [address] [place], [place] [phone] Social History Tobacco Use Types Packs/Day Years [...] any clubs o r organizations such as jain groups, unions, fraternal or athletic groups, or [...] Recorded Patient Health Questionnaire-2 Score 0 11/16/2024 [facility] Occupat ional [facility] - Occupational Stress Questionnaire Answer Date Recorded [...] a group home (including now)? No 02/09/2024 [place] Depression Scale Answer Date Recorded [place] Depression Scale Total 6 08/08/2024 The thought [...] drink first t casi in the morning (EYE-NEIGHBORHOOD COORDINATOR) to steady your nerves or to get [...] EDT Clinical Concern/Question Reason for Call: Per [facility], patient needs hospital discharge follow up for POTS, tachycardia and chest? Best contact number: Other: [phone] Optimal time of day to reach caller: ANYTIME Additional comments/information from caller: None Note: Please do not reply to this message. Follow-up communication and further actions as a result of this message need to be communicated with the patient directly, if the patient is not active onMyChart. If the patient is active on MyChart, they will receive notification of the communication/outcome via Stylistpickhart. documented in this encounter Plan of Treatment Upcoming Encounters Date Type Department Care Team (Late st Contact Info) Description 01/17/2025 7:00 AM EDT Appointment [facility] Endoscopy [address] [place] [address] Cody Barnett MD [address] [place] [address] 02/10/2025 10:00 AM EDT Office Visit [facility] Endocrinology [address] [place] [address] Rachel Khan PA [address] [place] [address] 02/16/2025 1:20 PM EDT Office Visit [facility] [place] [address] [place] [address] Courtney Torres MD [address] [place] [address] 03/15/2025 3:30 PM EDT Consult [facility] [address], 1st [place] [address] Kendy Sanchez APRN [address] [place] [address] 04/17/2025 2:00 PM EDT Office Visit [facility] Medicine Specialties [address], 2nd [place] [address] Silverio Tam PA [address] [place] [address] documented as of this [...] documented as of this encounter Care Teams Deicer Repairer Electric Relationship Specialty Start Date End Date Molly Louis MD [address] [place] [address] [place] [address] PCP - General Family Medicine 02/09/24 11/15/24 [place] [address] [place] [address] [place] [address] PCP - General 11/16/24 Angela Oleary, RN [facility] Registered Nurse Cardiology 02/17/24 documented as of this encounter
--- OUTSIDE RECORDS SUMMARY | 2025-01-06 11:16 | XMS_ITS | Encounter Summary ---
Author Organization Healthcare Address [address] [place] [address] Care Team Providers Care Analysis Lead Name Role Phone Molly Louis MD Primary Care Provider [phone] Angela Oleary RN Unavailable Unavailable Rey Wyatt MD Primary Care Provider [phone] Encounter Details Date Type Department Care Team (Late st Contact Info) Description 10/21/[address] [address] [place] [address] Roland Wooten MD [address] [facility] [address] [place] [address] Social History Tobacco Use Types [...] How often do you attend chur or protestant services? Never 02/22/2024 Do you [...] Recorded Patient Health Questionnaire-2 Score 0 11/16/2024 [facility] of Occupat ional Health - Occupational [...] in a residential (including now)? No 02/09/2024 [place] Depression Scale Answer Date Recorded [place] Depression Scale Total 6 08/08/2024 The thought [...] drink first t casi in the morning (EYE-SYSTEMS SUPPORT ENGINEER) to steady your nerves or to [...] Score 0 10/26 3:00 PM EDT Angella aCstano * Question Answer Date of Assessment Author [...] Health Questionnaire-9 Score 0 10/26 3:00 PM Angella Hillman * Calculated C-SSRS Risk Score (Lifetime/Recent) [...] patient, has still not been discharged from [facility], advised that Dr Wooten could call this afternoon and requested recent lab results be faxed to [phone]. * Telephone Encounter - Cindy Mckeon - 10/21/2024 9:19 AM EDT Patient Phone Message Reason for Call: Pt called back to say she is being discharged from the hospital today. She asks for a call back aiden. Best contact number and optimal time of day to reach caller: [phone] Note: Please do not reply to this [...] Reason for Call: Pt is in[facility]patient at [facility] due to a Thyroid related emergency. Pt doesn't think she will be discharged in time for her 10:40 apt today so the apt was rescheduled. Pt said she really needs to be seen and she is worried about going over the weekend without consulting with Dr Wooten. Pls advise. Best contact number: [phone] (mobile) Optimal time of day to reach [...] EDT Appointment [facility] [address] [place] [address] Cody Barnett MD [address] [place] [address] 02/10/2025 10:00 AM EDT Office Visit [facility] Endocrinology [address] [place] [address] Rachel Khan PA [address] [facility] [address] [place] [address] 02/16/2025 1:20 PM EDT Office Visit [facility] [place] [address] [place] [address] Courtney Torres MD [address] [place] [address] 03/15/2025 3:30 PM EDT Consult [place] [facility] [address], 1st [place] [address] Kendy Sanchez APRN [address] [place] [address] 04/17/2025 2:00 PM EDT Office Visit [facility] Medicine Specialties [address], [address]nd [place] [address] Silverio Tam PA [address] [place] [address] documented as of this encounter [...] documented as of this encounter Care Teams Analysis Lead Relationship Specialty Start Date End Date Molly Louis MD [address] [place] [address] PCP - General Family Medicine 02/09/24 11/15/24 [place] [address] [place] [address] [address] [place] [address] PCP - General 11/16/24 Angela Oleary, RN [facility] Registered Nurse Cardiology 02/17/24 documented as of this encounter
--- OUTSIDE RECORDS SUMMARY | 2025-01-06 11:16 | XMS_ITS | Encounter Summary ---
Author Organization Healthcare Address [address] [place] [address] Care Team Providers Care Cut Tobacco Bulker Name Role Phone Angela Olaery RN Unavailable Unavailable Rey Wyatt MD Primary Care Provider [phone] Encounter Details Date Type Department Care Team (Late st Contact Info) Description 12/16/2024 Results Follow-Up [facility] Endocrinology [address] [place] [address] Abundio Kyle MBBS [address] [id number] Social History Tobacco Use Types Packs/Day Years [...] often do you attend chur ch or voodoo services? Never 02/22/2024 Do you [...] Recorded Patient Health Questionnaire-2 Score 0 12/15/2024 [facility] of Occupat ional [facility] [...] place to sleep or slept in a snf (including now)? No 02/09/2024 [place] Depression Scale Answer Date Recorded [place] Depression Scale Total 6 08/08/2024 The thought [...] drink first t casi in the morning (EYE-JEEP MECHANIC) to steady your nerves or to [...] EDT Appointment [facility] [address] [place] [address] Cody Barnett MD [address] [place] [address] 02/10/2025 10:00 AM EDT Office Visit [facility] Endocrinology [address] [place] [address] Rachel Khan PA [address] [facility] [address] [place] [address] 02/16/2025 1:20 PM EDT Office Visit [facility] [place] [address] [facility], [address] [place] [address] Courtney Torres MD [address] [place] [address] 03/15/2025 3:30 PM EDT Consult [facility] [address], 1[address] [place] [address] Kendy Sanchez, TRISTAN [address] [place] [address] 04/17/2025 2:00 PM EDT Office Visit [facility] Medicine Specialties [address], 2nd [place] [address] Silverio Tam PA [address] [place] [address] Scheduled Orders Name Type Priority [...] documented as of this encounter Care Teams Cut Tobacco Bulker Relationship Specialty [place] [address] [place] [address] PCP - General 11/16/24 Angela Oleary, RN [facility] Registered Nurse Cardiology 02/17/24 documented as of this encounter
--- OUTSIDE RECORDS SUMMARY | 2025-01-06 11:16 | XMS_ITS | Encounter Summary ---
Author Organization Healthcare Address [address] [place] [address] Care Team Providers Care Catalyst Operator Gasoline Name Role Phone Angela Oleary RN Unavailable Unavailable Rey Wyatt MD Primary Care Provider [phone] Encounter Details Date Type Department Care Team (Late st Contact Info) Description 11/16/2024 Telephone [facility] [address], 1st [place] [address] Kendy Sanchez, MIX HOUSE TENDER [address] [place] [address] Social History Tobacco Use Types [...] Recorded Patient Health Questionnaire-2 Score 0 11/16/2024 [facility] - Occupational Stress Questionnaire Answer [...] a senior care (including now)? No 02/09/2024 [place] Depression Scale Answer Date Recorded [place] Depression Scale Total 6 08/08/2024 The thought [...] drink first t casi in the morning (EYE-TIRE TRIMMER HAND) to steady your nerves or to get [...] EDT Appointment [facility] [address] [place] [address] Cody Barnett MD [address] [facility] [address] [place] [address] 02/10/2025 10:00 AM EDT Office Visit [facility]inology [address] [place] [address] Rachel Khan PA [address] [facility] [address] [place] [address] 02/16/2025 1:20 PM EDT Office Visit [facility] [place] [address] [facility], [address] [place] [address] Courtney Torres MD [address] [facility] [address] [place] [address] 03/15/2025 3:30 PM EDT Consult [facility] [address], 1[address] [place] [address] Kendy Sanchez APRN [address] [facility] [address] [place] [address] 04/17/2025 2:00 PM EDT Office Visit [facility] [address], 2[address] [place] [address] Silverio Tam PA [address] [facility] [address] [place] [address] documented as of this encounter [...] documented as of this encounter Care Teams Catalyst Operator Gasoline Relationship Specialty Start Date End Date Rey Wyatt MD [address] [place] [address] PCP - General 11/16/24 Angela Oleary, RN [facility] Registered Nurse Cardiology 02/17/24 documented as of this encounter
--- OUTSIDE RECORDS SUMMARY | 2025-01-06 11:16 | XMS_ITS | Encounter Summary ---
Author Organization Healthcare Address [address] [place] [address] Care Team Providers Care Home Energy Consultant Supervisor Name Role Phone Molly Louis MD Primary Care Provider [phone] Angela Oleary RN Unavailable Unavailable Reason for Visit * Reason Onset Date Comments HCN - Patient Message 10/10/2024 Encounter Details Date Type Department Care Team (Late st Contact Info) Description 10/10/2024 Telephone [facility] Medicine Specialties [address], [address] [place] [address] Silverio Tam PA [address] [place] [address] HCN - Patient Message Social [...] How often do you attend chur or roman catholic services? Never 02/22/2024 Do you belong to any clubs o r organizations such as rastafari groups, unions, fraternal or athletic groups, or [...] Recorded Patient Health Questionnaire-2 Score 2 09/06/2024 [facility] - Occupational Stress [...] in a assisted (including now)? No 02/09/2024 [place] Depression Scale Answer Date Recorded [place] Depression Scale Total 6 08/08/2024 The thought [...] drink first t casi in the morning (EYE-COLLEGE ATHLETE) to steady your nerves or to get [...] optimal time of day to reach caller: [phone] Note: Please do not reply to this [...] EDT Appointment [facility] Endoscopy [address] [place] [address] Cody Barnett MD [address] [facility] [address] [place] [address] 02/10/2025 10:00 AM EDT Office Visit [facility] Endocrinology [address] [place] [address] Rachel Khan PA [address] [facility] [address] [place] [address] 02/16/2025 1:20 PM EDT Office Visit [facility] [place] [address] [facility], [address] [place] [address] Courtney Torres MD [address] [facility] [address] [place] [address] 03/15/2025 3:30 PM EDT Consult [facility] [address], 1[address] [place] [address] Kendy Sanchez APRN [address] [place] [address] 04/17/2025 2:00 PM EDT Office Visit [facility] Medicine Specialties [address], 2[address] [place] [address] Silverio Tam PA [address] [place] [address] documented as of this encounter [...] documented as of this encounter Care Teams Home Energy Consultant Supervisor Relationship Specialty Start Date End Date Molly Louis MD [address] [place] [address] PCP - General Family Medicine 02/09/24 11/15/24 Angela Oleary, RN [facility] Registered Nurse Cardiology 02/17/24 documented as of this encounter
--- OUTSIDE RECORDS SUMMARY | 2025-01-06 11:16 | XMS_ITS | Encounter Summary ---
Author Organization Healthcare Address [address] [place] [address] Care Team Providers Care Machine Design Checker Name Role Phone Angela Oleary RN Unavailable Unavailable Rey Wyatt MD Primary Care Provider [phone] Encounter Details Date Type Department Care Team [...] week 02/22/2024 How often do you attend [facility] or nondenominational services? Never 02/22/2024 Do you belong to [...] in a fci (including now)? No 02/09/2024 [place] Depression Scale Answer Date Recorded [place] Depression Scale Total 6 08/08/2024 The thought [...] first t casi in the morning (EYE-SENIOR SOFTWARE QA ENGINEER) to steady your nerves or to [...] Appointment [facility] Endoscopy [address] [place] [phone] Cody Barnett MD [address] [place] [address] 02/10/2025 10:00 AM EDT [facility] [address] [place] [address] Rachel Khan PA [address] [place] [address] 02/16/2025 1:20 PM EDT Office Visit [facility] [place] [address], [address] [place] [address] Courtney Torres MD [address] [place] [address] 03/15/2025 3:30 PM EDT Consult [facility] [address] 1[address] [place] [address] Kendy Sanchez, RACE ENGINE BUILDER [address] [place] [address] 04/17/2025 2:00 PM EDT Office Visit [facility] Medicine Specialties [address], [address] [place] [address] Silverio Tam PA [address] [place] [address] documented as of this encounter [...] as of this encounter Care Teams Machine Design Checker Relationship Specialty Start Date End Date Rey Wyatt MD [address] [place] [address] PCP - General 11/16/24 Angela Oleary, RN [facility] Registered Nurse Cardiology 02/17/24 documented as of this encounter
--- OUTSIDE RECORDS SUMMARY | 2025-01-06 11:18 | XMS_ITS | Encounter Summary ---
Author Organization [employer] Address [address] [place] [address] Care Team Providers Care Senior Hr Manager Name Role Phone Molly Louis MD Primary Care Provider [phone] Encounter Details Date Type Department Care Team (Late st Contact Info) Description 04/14/2024 Outside Orders [facility] Admitting [address] [place] [address] Silverio Tam, BOOKER [address] 2nd Floor Wing [place] [phone] Blood in stool (Primary Dx) Social History [...] Date Guerrero rded Speak language other than Malagasy at home Not on file 08/13/2023 Want [...] 87(H) <=49 ug/g 04/19/2024 11:26 PM EDT [facility] Comment: REFERENCE INTERVAL: Calprotectin, Fecal by Immunoassay Less than 50 ug/g.........Normal 50-120 ug/g...............Borderline elevated, test should be re-evaluated in 4-6 weeks. 121 ug/g or greater.......Elevated Performed By: [email or web address] [address] [place] [address] Director Merit System: Wilber Pardo MD, PhD CLIA Number: [id number] Stool 04/14/2024 11:0 6 AM EDT 04/14/2024 11:47 AM EDT us Silverio [facility] MICRO[facility] - GENERAL ORDERAB LES Final Result [facility] [address] [place] [address], [facility] [phone] documented in this encounter Visit Diagnoses Diagnosis Blood in stool- Primary documented in this encounter Care Teams Senior Hr Manager Relationship Specialty Start Date End Date Molly Louis MD [address] [place] [address] PCP - General 08/22/24 documented as of this encounter
--- OUTSIDE RECORDS SUMMARY | 2025-01-06 11:18 | XMS_ITS | Encounter Summary ---
Author Organization [facility] Address [address] [place] [address] Care Team Providers Care Lead Consultant Name Role Phone Angela Oleary RN Unavailable Unavailable Rey Wyatt MD Primary Care Provider [phone] Reason for Referral * Imaging (Routine) - Authorized Specialty Diagnoses / Procedures Referred By Mili joe Referred To Contact Gastroenterology Diagnoses Abdominal pain, epigastric Diarrhea, unspecified type Weight loss Hematochezia Procedures Capsule Endoscopy Silverio Tam PA [address] [facility] [address] [place] [address] Phone: tel: fax: Referral ID Status Reason Start Date Expiration Date Visits Requested Visits Authorized [id number] Authorized Specialty Services Required 12/28/2024 06/29/2026 1 1 Encounter Details Date Type Department Care Team (Late st Contact Info) Description 12/28/2024 Orders Only [facility] Medicine Specialties [address], [address] [place] [address] Silverio Tam PA [address] [facility] [address] [place] [address] Abdominal pain, epigastric (Primary Dx); [...] often do you attend chur ch or denominational services? Never 02/22/2024 Do you belong to any clubs o r organizations such as gnosticist groups, unions, fraternal or athletic groups, or [...] Recorded Patient Health Questionnaire-2 Score 0 12/15/2024 [facility] of Occupat ional Health [...] in a custodial (including now)? No 02/09/2024 Valley Depression Scale Answer Date Recorded [place] Depression Scale Total 6 08/08/2024 The [...] drink first t casi in the morning (EYE-VENTILATING EXPERT) to steady your nerves or to get rid of a hangover? 0 07/16/2024 CAGE Questionnaire Score 0 024 Utilities Answer Date Recorded In the past 12 months has th e [employer], gas, oil, or water company threatened to [...] EDT Appointment [facility] Endoscopy [address] [place] [address] Cody Barnett MD [address] [place] [address] 02/10/2025 10:00 AM EDT Office Visit [facility] Endocrinology [address] [place] [address] Rachel Khan PA [address] [facility] [address] [place] [address] 02/16/2025 1:20 PM EDT Office Visit [facility] [place] [address] [facility], [address] [place] [address] Courtney Torres MD [address] [place] [address] 03/15/2025 3:30 PM EDT Consult [place] [facility] [address], 1st [place] [address] Kendy Sanchez, MANUFACTURING SALES REPRESENTATIVE [address] [place] [address] 04/17/2025 2:00 PM EDT Office Visit [facility] Medicine Specialties [address], 2[address] [place] [address] Silverio aTm PA [address] [place] [address] Scheduled Orders Name Type Priority [...] documented as of this encounter Care Teams Lead Consultant Relationship Specialty Start Date End Date Rey Wyatt MD [address] [place] [address] PCP - General 11/16/24 Angela Oleary, RN [facility] Registered Nurse Cardiology 02/17/24 documented as of this encounter
--- OUTSIDE RECORDS SUMMARY | 2025-01-06 11:18 | XMS_ITS | Encounter Summary ---
Author Organization [employer] Address [address] [place] [address] Care Team Providers Care Silver Holloware Assembler Name Role Phone Molly Louis MD Primary Care Provider [phone] Encounter Details Date Type Department Care Team (Late st Contact Info) Description 08/22/2024 Outside Orders [facility] Admitting [address] [place] [address] Silverio Tam, BOOKER [address] Wing [place] [phone] Esophageal reflux (Primary Dx) Social History Tobacco [...] Date Guerrero rded Speak language other than Turkmen at home Not on file 08/13/2023 Want [...] EIA Negative Negative 08/23/2024 10:57 PM EST [employer] Comment: Performed By: [facility] [address] [place] [address] Toy Assembler: Wilber Pardo MD, PhD CLIA Number: [id number] Stool 08/22/2024 11:3 5 AM EST 08/22/2024 11:36 AM EST [facility] MICRO[facility] - GENERAL ORDERAB LES Final Result Performing Organization Address City/State/[facility] Co de Phone Number [employer] [address] [place] [address], [facility] [phone] * Calprotectin, Fecal by Immunoassay(SENDOUT) (08/22/2024 11:35 AM EST) Calprotectin, Fecal 26 <=49 ug/g 08/26/2024 8:14 AM EST [employer] Comment: REFERENCE INTERVAL: Calprotectin, Fecal by Immunoassay Less than 50 ug/g........Normal 50-120 ug/g..............Borderline elevated, test should be re-evaluated in 4-6 weeks. 121 ug/g or greater......Elevated Performed By: [facility] [address] [place] [address] Toy Assembler: Wilber Pardo MD, PhD CLIA Number: [id number] Stool 08/22/2024 11:3 5 AM EST 08/22/2024 11:36 AM EST us [facility] MICRO[facility]OLOG[facility] - GENERAL ORDERAB LES Final Result [employer] [address] [place] [address], [facility] [phone] documented in this encounter Visit Diagnoses Diagnosis Esophageal reflux- Primary documented in this encounter Care Teams Silver Holloware Assembler Relationship Specialty Start Date End Date Molly Louis MD [address] [place] [address] PCP - General 08/22/24 documented as of this encounter
--- OUTSIDE RECORDS SUMMARY | 2025-01-06 11:18 | XMS_ITS | Encounter Summary ---
Author Organization Healthcare Address [address] [place] [address] Care Team Providers Care Manager Wind Name Role Phone Molly Louis MD Primary Care Provider [phone] Angela Oleary RN Unavailable Unavailable Rey Wyatt MD Primary Care Provider [phone] Reason for Visit * Reason Onset Date Comments Med Refill 07/19/2024 Encounter Details Date Type Department Care Team (Late st Contact Info) Description 07/19/2024 Refill [facility] [address] [facility], [address] [place] [address] Paris Marion MD [address] [place] [address] Social History Tobacco Use Types Packs/Day Years [...] How often do you attend chur or tenriism services? Never 02/22/2024 Do you belong to any clubs o r organizations such as protestant groups, unions, fraternal or athletic groups, or [...] Recorded Patient Health Questionnaire-2 Score 0 06/22/2024 [facility] - Occupational Stress Questionnaire Answer [...] in a chcf (including now)? No 02/09/2024 Clarence Depression Scale Answer Date Recorded [place] Depression Scale Total 8 02/22/2024 The thought [...] drink first t casi in the morning (EYE-GOODS LAYER) to steady your nerves or to [...] EDT Appointment [facility] Endoscopy [address] [place] [address] Cody Barnett MD [address] [place] [address] 02/10/2025 10:00 AM EDT Office Visit [facility] Endocrinology [address] [place] [address] Rachel Khan PA [address] [facility] [address] [place] [address] 02/16/2025 1:20 PM EDT Office Visit [facility] [place] [address] [facility], [address] [place] [address] Courtney Torres MD [address] [facility] [address] [place] [address] 03/15/2025 3:30 PM EDT Consult [facility] [address], 1st [place] [address] Kendy Sanchez APRN [address] [place] [address] 04/17/2025 2:00 PM EDT Office Visit [facility] Medicine Specialties [address], [address] [place] [address] Silverio Tam PA [address] [place] [address] documented as of this encounter [...] documented as of this encounter Care Teams Manager Wind Relationship Specialty Start Date End Date Molly Louis MD [address] [place] [address] PCP - General Family Medicine 02/09/24 11/15/24 Rey Wyatt MD [address] [place] [address] PCP - General 11/16/24 Angela Oleary, RN [facility] Registered Nurse Cardiology 02/17/24 documented as of this encounter
--- OUTSIDE RECORDS SUMMARY | 2025-01-06 11:18 | XMS_ITS | Clinical Summary ---
Author Organization [employer] Address [address] [place] [address] Care Team Providers Care Signals Analyst Name Role Phone Molly Louis MD Primary Care Provider Allergies Active Allergy [...] Date Guerrero rded Speak language other than Finnish at home Not on file 08/13/2023 Want [...] Ended) 2025 Medical Devices Implanted Type Area Handle Finisher Device Identifier Shelf Expiration Date Model / Serial / Lot K-Wire [id number] - [id number] Implanted:Qty: 1 on 08/04/2022 by Rex Rene MD at [facility] IMPLANTS Right: Hand ANNIA:[employer] [id number] / / Wire K-Wire 1.6mm - [id number] Implanted:Qty: 1 on 08/04/2022 by Rex Rene MD at [facility] IMPLANTS Right: Hand BUCK MED GRP:[employer] TECH / / [place] [address] [place] [address] Advance Directives For more information, please contact: [phone] * Full Code (Latest Code Status on File) Date Activated Date Inactivated Comments 08/04/2022 6:03 AM 08/04/2022 11:35 AM Care Teams Signals Analyst Relationship Specialty Start Date End Date Molly Louis MD [address] [place] [address] [address] [place] [address] PCP - General 08/22/24
--- OUTSIDE RECORDS SUMMARY | 2025-01-06 11:18 | XMS_ITS | Encounter Summary ---
Author Organization Healthcare Address [address] [place] [address] Care Team Providers Care Meat Butcher Name Role Phone Pcp, No Primary Care Provider UnavailMolly Newman MD Primary Care Provider [phone] Angela Oleary RN Unavailable Unavailable Rey Wyatt MD Primary Care Provider [phone] Encounter Details Date Type Department Care Team (Late Contact Info) Description 01/22/2024 Orders Only External Location [address] [place] [address] Provider, External Social History Tobacco Use Types [...] EDT Appointment [facility] S Endoscopy [address] [place] [address] Cody Barnett MD [address] [place] [address] 02/10/2025 10:00 AM EDT Office Visit [facility] Endocrinology [address] [place] [address] Rachel Khan PA [address] [place] [address] 02/16/2025 1:20 PM EDT Office Visit [facility] [place] [address], [address] [place] [address] Courtney Torres MD [address] [place] [address] 03/15/2025 3:30 PM EDT Consult [facility] [address], 1[address] [place] [address] Kendy Sanchez APRN [address] [place] [address] 04/17/2025 2:00 PM EDT Office Visit [facility] Medicine Specialties [address], [address] [place] [address] Silverio Tam PA [address] [place] [address] documented as of this encounter [...] documented as of this encounter Care Teams Meat Butcher Relationship Specialty Start Date End Date Pcp, No [address] [place] [address] PCP - General Family Medicine 01/22/24 02/08/24 Molly Louis MD [address] [place] [address] PCP - General Family Medicine 02/09/24 11/15/24 Rey Wyatt MD [address] [facility] [address] [place] [address] PCP - General 11/16/24 Angela Oleary, RN [facility] Registered Nurse Cardiology 02/17/24 documented as of this encounter
--- OUTSIDE RECORDS SUMMARY | 2025-01-06 11:18 | XMS_ITS | Encounter Summary ---
Author Organization Healthcare Address [address] [place] [address] Care Team Providers Care Timber Treating Tank Operator Name Role Phone Angela Oleary RN Unavailable Unavailable Rey Wyatt MD Primary Care Provider [phone] Encounter Details Date Type Department Care Team (Late st Contact Info) Description 12/28/2024 Orders Only [facility] Medicine Specialties [address] [place] [address] Keya Minor RN [facility]IN[facility] Diarrhea, [...] often do you attend chur ch or religion services? Never 02/22/2024 Do you belong to [...] Recorded Patient Health Questionnaire-2 Score 0 12/15/2024 [facility] of Occupat ional Health - Occupational Stress [...] a senior care (including now)? No 02/09/2024 [place] Depression Scale Answer Date Recorded [place] Depression Scale Total 6 08/08/2024 The thought [...] drink first t casi in the morning (EYE-HEAVY EQUIPMENT SUPERVISOR) to steady your nerves or to [...] EDT Appointment [facility] Endoscopy [address] [place] [address] Cody Barnett MD [address] [place] [address] 02/10/2025 10:00 AM EDT Office Visit [facility] Endocrinology [address] [place] [address] Rachel Khan PA [address] [place] [address] 02/16/2025 1:20 PM EDT Office Visit [facility] [place] [address], [address] [place] [address] Courtney Torres MD [address] [place] [address] 03/15/2025 3:30 PM EDT Consult [facility] [address], [address] [place] [address] Kendy Sanchez APRN [address] [place] [address] 04/17/2025 2:00 PM EDT Office Visit [facility] Medicine Specialties [address], [address] [place] [address] Silverio Tam PA [address] [place] [address] documented as of this encounter [...] documented as of this encounter Care Teams Timber Treating Tank Operator Relationship Specialty Start Date End Date Rey Wyatt MD [address] [place] [address] PCP - General 11/16/24 Angela Oleary, RN [facility] Registered Nurse Cardiology 02/17/24 documented as of this encounter
--- OUTSIDE RECORDS SUMMARY | 2025-01-06 11:18 | XMS_ITS | Encounter Summary ---
Author Organization Healthcare Address [address] [place] [address] Care Team Providers Care Log Chipper Name Role Phone Angela Oleary RN Unavailable Unavailable Rey Wyatt MD Primary Care Provider Encounter Details Date Type Department Care Team (Late st Contact Info) Description 12/28/2024 Results Follow-Up [facility] Medicine Specialties [address] [place] [address] Estuardo Jon MD [address] [place] [address] Social History Tobacco Use Types [...] often do you attend chur ch or sikhism services? Never 02/22/2024 Do you belong to any clubs o r organizations such as latter day groups, unions, fraternal or athletic groups, or [...] Recorded Patient Health Questionnaire-2 Score 0 12/15/2024 [facility] - Occupational Stress Questionnaire [...] place to sleep or slept in a skilled nursing (including now)? No 02/09/2024 [place] Depression Scale Answer Date Recorded [place] Depression Scale Total 6 08/08/2024 The thought [...] drink first t casi in the morning (EYE-ANTHROPOLOGY DEPARTMENT CHAIR) to steady your nerves or to get [...] EDT Appointment [facility] Endoscopy [address] [place] [address] Cody Barnett MD [address] [place] [address] 02/10/2025 10:00 AM EDT Office Visit [facility] Endocrinology [address] [place] [address] Rachel Khan, PA [address] [facility] [address] [place] [address] 02/16/2025 1:20 PM EDT Office Visit [facility] [place] [address] [facility], [address] [place] [address] Courtney Torres MD [address] [facility] [address] [place] [address] 03/15/2025 3:30 PM EDT Consult [facility] [address] [place] [address] Kendy Sanchez APRN [address] [place] [address] 04/17/2025 2:00 PM EDT Office Visit [facility] Medicine Specialties [address] [place] [address] Silverio Tam, BOOKER [address] [place] [address] documented as of this encounter [...] documented as of this encounter Care Teams Log Chipper Relationship Specialty [place] [address] [place] [address] [address] [place] [address] PCP - General 11/16/24 Angela Oleary, RN [facility] Registered Nurse Cardiology 02/17/24 documented as of this encounter
--- OUTSIDE RECORDS SUMMARY | 2025-01-06 11:18 | XMS_ITS | Clinical Summary ---
Author Organization [facility] Address [address] [place] [address] Care Team Providers Care Chief Science Officer Name Role Phone Angela Oleary RN Unavailable Unavailable Rey Wyatt MD Primary Care Provider [phone] Allergies Active Allergy Reactions Criticality Noted Date [...] (one) time each day. 30 packet 1 Active Additional Information Patient not taking.Reported on 12/15/2024 Vit-Fe Fumarate-FA ( Vitamins) 28-0.8 MG tablet Take 1 tablet by mouth 1 (one) time each day. 30 tablet 11 024 2024 Active Additional Information Patient not taking.Reported on 12/15/2024 sodium chloride ([place] Nasal Egan) 0.65 % nasal spray Administer 1 spray into each nostril if needed for congestion. 30 mL 12 024 Active Additional Information Patient not taking.Reported on 12/15/2024 Blood Glucose Monitoring Suppl (OneTouch Verio Reflect) w/Device kit Active OneTouch Verio test strip 1 each by Other route if needed. Active Lancets (OneTouch Delica Plus [id number]) [facility] Active ibuprofen 600 MG tablet Take 1 tablet (600 mg) by mouth every 6 (six) hours if needed for mild pain. 30 tablet 1 Active Additional Information Patient not taking.Reported on 12/15/2024 senna-docusate (Codi-Colace) 8.6-50 MG tablet Take 1 tablet by mouth 1 (one) time each day. 30 tablet 1 Active Additional Information Patient not taking.Reported on 12/15/2024 acetaminophen (Tylenol) 325 MG capsule Take 2 capsules (650 mg) by mouth every 6 (six) hours if needed for mild pain. 30 capsule 1 Active Additional Information Patient not taking.Reported on 12/15/2024 ondansetron (Zofran) 4 MG tablet Take 1 tablet (4 mg) by mouth every 8 (eight) hours if needed for nausea or vomiting. 3 tablet 5 Active Additional Information Patient not taking.Reported on 12/15/2024 busPIRone (Buspar) 5 MG tablet Take 1 tablet (5 mg) by mouth every night. Takes at 8PM 30 tablet Active famotidine (Pepcid) 20 MG tablet Take 1 tablet (20 mg) by mouth 2 (two) times a day. 60 tablet 11 Active Additional Information Patient not taking.Reported on 12/15/2024 cholecalciferol (Vitamin D-3) 50 MCG (2000 UT) capsule Active Ventolin HFA 108 (90 Base) MCG/ACT inhaler Active methIMAzole (Tapazole) 10 MG tablet Take 1 tablet by mouth daily. 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 90 tablet 3 025 Active fludrocortisone (Florinef) 0.1 MG tabletIndications :Pott's disease Take 1 tablet by mouth daily. 30 tablet 3 Active cefdinir (Omnicef) 300 MG capsule take one capsule by mouth every twelve hours for 10 days Active fluticasone (Flonase) 50 MCG/ACT nasal spray Administer 1 spray into each nostril daily. Active predniSONE (Deltasone) 10 MG tablet Take 4 tablets by mouth daily for 5 days, THEN 3 tablets daily for 5 days, THEN 2 tablets daily for 5 days, THEN 1 tablet daily for 5 days, THEN 0.5 tablets daily for 5 days. 53 tablet 025 2024 Active ondansetron ODT (Zofran-ODT) 4 MG disintegrating tablet Dissolve 2 tablets on the tongue every 8 hours as needed for nausea or vomiting. 20 tablet 5 Active ondansetron ODT (Zofran-ODT) 4 MG disintegrating tablet Take 1 tablet (4 mg) by mouth every 8 (eight) hours if needed for nausea or vomiting. 20 tablet 2 024 2024 Discontinued(R eorder) bisacodyl (Bisacodyl EC) 5 MG EC tablet Take all 4 tablets at 4 PM on day before colonoscopy 4 tablet 025 2024 Discontinued polyethylene glycol (GoLYTELY) 236 g solution SEE PHARMACY NOTES FOR PATIENT LABEL INSTRUCTIONS- for Colonoscopy prep protocol 4000 mL 025 2024 Discontinued predniSONE (Deltasone) 10 MG tablet Take 4 tablets by mouth daily for 5 days, THEN 3 tablets daily for 5 days, THEN 2 tablets daily for 5 days, THEN 1 tablet daily for 5 days, THEN 0.5 tablets daily for 5 days. 53 tablet 025 2024 Discontinued(R eorder) Hospital, Clinic, or Other Facility Administered Medication Ordered Dose Route Frequency Start Date End Date Status sodium chloride 0.9 % infusion 250 mLIndications:Supervision of high risk in second trimester 250 mL IV Once 03/30/2024 Active Active Problems Problem Noted Date Diagnosed Date Palpitations 08/17/2024 and not yet delivered in third trimeste r 07/16/2024 POTS (postural orthostatic tachycardia [...] Department Care Team Description 12/30/2024 Orders Only [facility] [address] [place] [address] Silverio Tam PA 12/28/2024 Orders Only [facility] [address] [place] [address] Silverio Tam PA Abdominal pain, epigastric (Primary Dx); Diarrhea, unspecified type; Weight loss; Hematochezia 12/28/2024 Results Follow-Up [facility] [address] [place] [address] Estuardo Jon MD 12/28/2024 Orders Only [facility] [address] [place] [address] Keya Minor RN Diarrhea, unspecified type 12/20/2024 Results Follow-Up [facility] [address] [place] [address] Silverio Tam PA 12/16/2024 Results Follow-Up [facility] [address] [place] [address] Abundio Kyle MBBS 12/15/2024 2:30 PM EDT Office Visit [facility] [address] [place] [address] Silverio Tam, PA Weight loss (Primary Dx); Abdominal pain, epigastric; Diarrhea, unspecified type; Postural orthostatic tachycardia syndrome (POTS); Hematochezia; Elevated fecal calprotectin; Urticaria; History of anesthesia reaction; Gastroesophageal reflux disease, unspecified whether esophagitis present; Gilbert's syndrome; Nausea and vomiting, unspecified vomiting type; BMI 23.0-23.9, adult 12/15/2024 Travel 12/09/2024 Orders Only [facility] [address] [place] [address] Silverio Tam PA 12/08/2024 Travel 12/07/2024 7:03 AM EDT - 12/07/2024 11:59 PM EDT Hospital Encounter [facility] [address] 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 Travel 11/16/2024 Telephone [facility] [address] [place] [address] CarlitaKendy wintersTRISTAN 11/14/2024 Orders Only [facility] [address] [place] [address] Abundio Kyle MBBS Thyrotoxicosis with Tricia thyroiditis (Primary Dx) 11/13/2024 Travel 11/11/2024 8:40 AM EDT Office Visit [facility] [address] [place] [address] (1), Roland Wooten Fellow Abundio Kyle MBBS Thyrotoxicosis with Tricia thyroiditis (Primary Dx); Hyperthyroidism 11/11/2024 Travel 10/21/2024 Telephone [facility] [place] [facility] [place] [address] [place] [address] None, None 10/21/2024 Telephone [facility] [address] [place] [phone] Roland Wooten MD 10/20/2024 Travel 10/17/2024 Orders Only [facility] [address] [place] [address] Silverio Tam PA Hematochezia (Primary Dx); Abdominal pain, epigastric 10/10/2024 Telephone [facility] [address] [place] [address] Silverio Tam PA HCN - Patient Message from Last 3 Months Immunizations Immunization Administration Dates Next Due DTaP, Unspecified 04/26/2002 HPV, Quadrivalent 05/29/2011 Hep A, ped/adol, 2 dose 11/21/2010,02/20/2010 IPV 04/26/2002 Influenza, injectable, quadr ivalent, preservative free 04/29/2023 MMR 07/18/2024(Deferred: Patient Refused),04/26/2002 Tdap 02/20/2010 Varicella 07/06/2001 Family History Medical History Relation Name Comments Autoimmune disease Brother 1 Tristan fagan Crohn's disease Brother 1 Tristan fagan Immunodeficiency Brother 1 Tristan fagan Liver disease Brother 2 Scott Asthma Child Heart attack Father Sahil reynoso Heart failure Father Sahil reynoso Hypertension Father Sahil reynoso Stroke Father Sahil reynoso Cancer Maternal Grandmother Melania sheridan Abnormal EKG Mother Avril fagan Autoimmune disease Mother Avril fagan Clotting disorder Mother Avril fagan Depression Mother Crystal craft Immunodeficiency Mother Crystal craft Thyroid disease Mother Crystal cradang Thyroid disease Mother's Sister Ashanti Anesthesia problems [...] often do you attend chur ch or adventist services? Never 02/22/2024 Do you [...] Recorded Patient Health Questionnaire-2 Score 0 12/15/2024 [facility] - Occupational Stress Questionnaire Answer [...] a long term (including now)? 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 0 07/16/2024 CAGE Questionnaire Score 0 024 Utilities Answer Date Recorded In the past 12 months has th e [employer] gas, oil, or water company threatened to [...] EDT Appointment [facility] [address] [place] [address] Cody Barnett MD [address] [place] [address] 02/10/2025 10:00 AM EDT Office Visit [facility] [address] [place] [phone] Rachel Khan, PA [address] [facility] [address] [place] [address] 02/16/2025 1:20 PM EDT Office Visit [facility] [place] [address], [address] [place] [address] Courtney Torres MD [address] [place] [address] 03/15/2025 3:30 PM EDT Consult [facility] [address] [place] [address] Kendy Sanchez APRN [address] [place] [address] 04/17/2025 2:00 PM EDT Office Visit [facility] [address] [place] [address] Silverio Tam PA [address] [place] [address] Health Maintenance Due Date Last [...] - Td or Tdap) 02/21/2020 02/20/2010, 04/26/2002 [id number] Vaccine (2 - Jasmine risk series) 03/21/2021 [...] (CMV) Quantitative PCR (12/15/2024 3:29 PM EDT) [facility] Cytomegalovirus (CMV) Quantitative Interpretation Not Detected Not Detected 12/19/2024 2:26 PM EDT [facility] Blood Venous blood specimen / Unknown Venipuncture / Unknown 12/15/2024 3:29 PM EDT 12/15/2024 3:30 PM EDT Narrative [facility] - 12/19/2024 2:26 PM EDT The [facility] M2000 CMV test is a Real Time [...] CELESTE LAB BLOOD ORDERABLES Final Res ult [facility] [address] [place] [address] * T3 (12/15/2024 3:29 PM EDT) Only the most recent of2 resultswithin the time period is included. [facility] T3, Serum 177 87 - 187 ng/dL 12/15/2024 4:54 PM EDT [facility] Blood Venous blood specimen / Unknown Venipuncture / Unknown 12/15/2024 3:29 PM EDT 12/15/2024 3:30 PM EDT [facility] CE[facility] LAB BLOOD ORDERABLES Final Res ult [facility] [address] [place] [address] * Brayan-Holguin virus VCA, IgM (12/15/2024 3:29 PM EDT) EBV ANTIBODY TO VIRAL CAPSID ANTIGEN IGM <10.0 0.0 - 43.9 U/mL 12/18/2024 11:09 AM EDT [email or web address] ([employer]) Blood Venous blood specimen / Unknown Venipuncture / Unknown 12/15/2024 3:29 PM EDT 12/15/2024 3:30 PM EDT Narrative [facility]) - 12/18/2024 11:09 AM EDT INTERPRETIVE INFORMATION: Brayan-Holguin Virus Antibody to Viral Capsid Antigen, IgM 35.9 U/mL or less.......Not Detected 36.0-43.9 U/mL..........Indeterminate - Repeat testing in 10-14 days may be helpful. 44.0 U/mL or greater....Detected Performed By: [facility] [address] [place] [address] Food Production Manager: Wilber Pardo MD, PhD CLIA Number: [id number] [facility] LAB BLOOD ORDERABLES Final Res ult [email or web address]) [address] [place] [address] * (ABNORMAL) Brayan Holguin IgG Ab (12/15/2024 3:29 PM EDT) EBV ANTIBODY TO VIRAL CAPSID ANTIGEN IGG 185.0(H) 0.0 - 21.9 U/mL 12/18/2024 11:11 AM EDT [facility]) Blood Venous blood specimen / Unknown Venipuncture / Unknown 12/15/2024 3:29 PM EDT 12/15/2024 3:30 PM EDT Narrative [facility] ([place]) - 12/18/2024 11:11 AM EDT INTERPRETIVE INFORMATION: Brayan-Holguin Virus Antibody to Viral Capsid Antigen, IgG 17.9 U/mL or less.......Not Detected 18.0-21.9 U/mL..........Indeterminate - Repeat testing in 10-14 days may be helpful. 22.0 U/mL or greater....Detected Performed By: [facility] [address] [place] [address] Food Production Manager: Wilber Pardo MD, PhD CLIA Number: [id number] [facility] LAB BLOOD ORDERABLES Final Res ult Performing Organization Address City/[facility] Co de Phone Number [facility]) [address] [place] [address] * Prothrombin Time/INR (12/15/2024 3:29 PM EDT) [facility] Prothrombin Time 13.7 12.0 - 14.3 sec LAB COAGULATION METHOD 12/15/2024 5:05 PM EDT [facility] INR 1.0 0.9 - 1.1 LAB COAGULATION METHOD 12/15/2024 5:05 PM EDT [facility] Blood Venous blood specimen / Unknown Venipuncture / Unknown 12/15/2024 3:29 PM EDT 12/15/2024 3:30 PM EDT Narrative [facility] - 12/15/2024 5:05 PM EDT OPTIMAL INR RANGES FOR PATIENT ON ORAL ANTICOAGULANT THERAPY Prevention of venous thromboembolism INR 2.0 to 3.0 In patients with heart disease: Atrial fibrillation INR 2.0 to 3.0 Valvular heart disease INR 2.0 to 3.0 Tissue heart valves INR 2.0 to 3.0 Mechanical prosthetic valves INR 2.5 to 3.5 Prevention of recurrent CA INR 2.5 to 3.5 [facility] LAB BLOOD ORDERABLES Final Res ult [facility] [address] [place] [address] * (ABNORMAL) CBC and Differential (12/15/2024 3:29 PM EDT) WBC Count 5.38 3.70 - 10.30 10*3/uL LAB HEMATOLOGY METHOD 12/15/2024 4:38 PM EDT [facility] RBC Count 4.81 3.90 - 5.20 10*6/uL LAB HEMATOLOGY METHOD 12/15/2024 4:38 PM EDT [facility] HGB 12.6 11.2 - 15.7 g/dL LAB HEMATOLOGY METHOD 12/15/2024 4:38 PM EDT [facility] HCT 39.7 34.0 - 45.0 % LAB HEMATOLOGY METHOD 12/15/2024 4:38 PM EDT [facility] Platelet Count 311 155 - 369 10*3/uL LAB HEMATOLOGY METHOD 12/15/2024 4:38 PM EDT [facility] MCV 83 79 - 98 fL LAB HEMATOLOGY METHOD 12/15/2024 4:38 PM EDT [facility] MCH 26.2 26.0 - 32.0 pg LAB HEMATOLOGY METHOD 12/15/2024 4:38 PM EDT [facility] MCHC 31.7 30.7 - 35.5 g/dL LAB HEMATOLOGY METHOD 12/15/2024 4:38 PM EDT [facility] RDW 12.2 11.5 - 14.5 % LAB HEMATOLOGY METHOD 12/15/2024 4:38 PM EDT [facility] MPV 11.2 8.8 - 12.5 fL LAB HEMATOLOGY METHOD 12/15/2024 4:38 PM EDT [facility] nRBC 0.0 <=0.0 per 100 WBCs LAB HEMATOLOGY METHOD 12/15/2024 4:38 PM EDT [facility] Differential Type Automated LAB HEMATOLOGY METHOD 12/15/2024 4:38 PM EDT [facility] Neutrophils % 61 % LAB HEMATOLOGY METHOD 12/15/2024 4:38 PM EDT [facility] Lymphocytes % 32 % LAB HEMATOLOGY METHOD 12/15/2024 4:38 PM EDT [facility] Monocytes % 5 % LAB HEMATOLOGY METHOD 12/15/2024 4:38 PM EDT [facility] Eosinophils % 1 % LAB HEMATOLOGY METHOD 12/15/2024 4:38 PM EDT [facility] Basophils % 1 % LAB HEMATOLOGY METHOD 12/15/2024 4:38 PM EDT [facility] Immature Granulocytes % 0 % LAB HEMATOLOGY METHOD 12/15/2024 4:38 PM EDT [facility] Neutrophils Absolute 3.33 1.60 - 6.10 10*3/uL LAB HEMATOLOGY METHOD 12/15/2024 4:38 PM EDT [facility] Lymphocytes Absolute 1.70 1.20 - 3.90 10*3/uL LAB HEMATOLOGY METHOD 12/15/2024 4:38 PM EDT [facility] Monocytes Absolute 0.25(L) 0.30 - 0.90 10*3/uL LAB HEMATOLOGY METHOD 12/15/2024 4:38 PM EDT [facility] Eosinophils Absolute 0.03 0.00 - 0.50 10*3/uL LAB HEMATOLOGY METHOD 12/15/2024 4:38 PM EDT [facility] Basophils Absolute 0.05 0.00 - 0.10 10*3/uL LAB HEMATOLOGY METHOD 12/15/2024 4:38 PM EDT [facility] Immature Granulocytes Absolute 0.02 0.00 - 0.06 10*3/uL LAB HEMATOLOGY METHOD 12/15/2024 4:38 PM EDT [facility] Blood Venous blood specimen / Unknown Venipuncture / Unknown 12/15/2024 3:29 PM EDT 12/15/2024 3:30 PM EDT Narrative [facility] - 12/15/2024 4:38 PM EDT Therapeutic decision making should be based on absolute values, rather than percentages. us [facility] LAB BLOOD ORDERABLES Final Res ult [facility] [address] [place] [address] * (ABNORMAL) TSH (12/15/2024 3:29 PM EDT) Only the most recent of3 resultswithin the time period is included. Thyroid Stimulating Hormone, Plasma <0.01(L) 0.40 - 4.20 uIU/mL 12/15/2024 4:54 PM EDT [facility] Blood Venous blood specimen / Unknown Venipuncture / Unknown 12/15/2024 3:29 PM EDT 12/15/2024 3:30 PM EDT Narrative [facility] - 12/15/2024 4:54 PM EDT Trimester Specific Ranges TSH ( IU/mL) 1st Trimester 0.1 - 3.0 2nd Trimester 0.19 - 4.06 3rd Trimester 0.3 - 3.7 Roland Wooten MD LAB BLOOD ORDERABLES Final Resu lt Performing Organization Address [facility] Co de Phone Number [facility] [address] [place] [address] * T4, free (12/15/2024 3:29 PM EDT) Only the most recent of3 resultswithin the time period is included. Free T4, Plasma 1.7 0.8 - 1.7 ng/dL 12/15/2024 4:54 PM EDT [facility] Blood Venous blood specimen / Unknown Venipuncture / Unknown 12/15/2024 3:29 PM EDT 12/15/2024 3:30 PM EDT Narrative [facility] - 12/15/2024 4:54 PM EDT Free T4 Trimester Specific Ranges 1st Trimester 0.9 - 1.50 ng/dL 2nd Trimester 0.7 - 1.40 ng/dL 3rd Trimester 0.7 - 1.24 ng/dL us Roland Wooten MD LAB BLOOD ORDERABLES Final Resu lt Performing Organization Address [facility] Co de Phone Number [facility] [address] [place] [address] * (ABNORMAL) Comprehensive Metabolic Panel, Plasma (12/15/2024 3:29 PM EDT) Only the most recent of2 resultswithin the time period is included. Glucose, Plasma 84 74 - 99 mg/dL 12/15/2024 4:54 PM EDT [facility] BUN, Plasma 8 7 - 21 mg/dL 12/15/2024 4:54 PM EDT [facility] Creatinine, Plasma 0.60 0.60 - 1.10 mg/dL 12/15/2024 4:54 PM EDT [facility] BUN/Creatinine Ratio 13 12/15/2024 4:54 PM EDT [facility] Sodium, Plasma 140 136 - 145 mmol/L 12/15/2024 4:54 PM EDT [facility] Potassium, Plasma 4.1 3.6 - 4.9 mmol/L 12/15/2024 4:54 PM EDT [facility] Chloride, Plasma 105 97 - 107 mmol/L 12/15/2024 4:54 PM EDT [facility] CO2, Plasma 21(L) 22 - 29 mmol/L 12/15/2024 4:54 PM EDT [facility] Anion Gap 14 6 - 16 mmol/L 12/15/2024 4:54 PM EDT [facility] Total Calcium, Plasma 9.4 8.9 - 10.2 mg/dL 12/15/2024 4:54 PM EDT [facility] Total Protein 8.1(H) 6.3 - 7.9 g/dL 12/15/2024 4:54 PM EDT [facility] Albumin, Plasma 4.6 3.5 - 5.2 g/dL 12/15/2024 4:54 PM EDT [facility] AST, Plasma 16 10 - 35 U/L 12/15/2024 4:54 PM EDT [facility] ALT, Plasma 23 10 - 35 U/L 12/15/2024 4:54 PM EDT [facility] Alkaline Phosphatase, Plasma 58 35 - 104 U/L 12/15/2024 4:54 PM EDT [facility] Total Bilirubin, Plasma 0.7 0.2 - 1.1 mg/dL 12/15/2024 4:54 PM EDT [facility] eGFRcr 127.1 mL/min/1.7 3m*2 12/15/2024 4:54 PM EDT [facility] Comment:Reported eGFRcr in m L/min/1.73m2 is based the CKD-EPI 2020 equation that does not use a race coefficient. Blood Venous blood specimen / Unknown Venipuncture / Unknown 12/15/2024 3:29 PM EDT 12/15/2024 3:30 PM EDT [facility] LAB BLOOD ORDERABLES Final Res ult [facility] [address] [place] [address] * Patency Capsule (12/07/2024 7:03 AM EDT) [...] 11/20/2024 9:48 PM Final report signed by Ayl Posada MD on 11/20/2024 9:49 PM [employer] DO IMG XR PROCEDURES Final Resul t * Troponin now and 120 min (11/20/2024 9:17 PM EDT) Troponin T, High Sensitivity, 0 Hour <6 <14 ng/L 11/20/2024 9:47 PM EDT [facility] Blood Venous blood specimen / Unknown Venipuncture / Unknown 11/20/2024 9:17 PM EDT 11/20/2024 9:20 PM EDT [employer] LAB BLOOD ORDERABLES Final Re sult [facility] [address] [place] [address] * CBC (11/20/2024 9:17 PM EDT) WBC Count 4.69 3.70 - 10.30 10*3/uL LAB HEMATOLOGY METHOD 11/20/2024 9:23 PM EDT [facility] RBC Count 4.26 3.90 - 5.20 10*6/uL LAB HEMATOLOGY METHOD 11/20/2024 9:23 PM EDT [facility] HGB 11.8 11.2 - 15.7 g/dL LAB HEMATOLOGY METHOD 11/20/2024 9:23 PM EDT [facility] HCT 35.8 34.0 - 45.0 % LAB HEMATOLOGY METHOD 11/20/2024 9:23 PM EDT [facility] Platelet Count 197 155 - 369 10*3/uL LAB HEMATOLOGY METHOD 11/20/2024 9:23 PM EDT [facility] MCV 84 79 - 98 fL LAB HEMATOLOGY METHOD 11/20/2024 9:23 PM EDT [facility] MCH 27.7 26.0 - 32.0 pg LAB HEMATOLOGY METHOD 11/20/2024 9:23 PM EDT [facility] MCHC 33.0 30.7 - 35.5 g/dL LAB HEMATOLOGY METHOD 11/20/2024 9:23 PM EDT [facility] RDW 12.5 11.5 - 14.5 % LAB HEMATOLOGY METHOD 11/20/2024 9:23 PM EDT [facility] MPV 11.6 8.8 - 12.5 fL LAB HEMATOLOGY METHOD 11/20/2024 9:23 PM EDT [facility] nRBC 0.0 <=0.0 per 100 WBCs LAB HEMATOLOGY METHOD 11/20/2024 9:23 PM EDT [facility] Blood Venous blood specimen / Unknown Venipuncture / Unknown 11/20/2024 9:17 PM EDT 11/20/2024 9:20 PM EDT us Shani L Trafford DO LAB BLOOD ORDERABLES Final Re sult [facility] [address] [place] [address] * hCG qualitative (11/20/2024 9:17 PM EDT) Test Negative Negative 11/20/2024 10:02 PM EDT [facility] Blood Venous blood specimen / Unknown Venipuncture / Unknown 11/20/2024 9:17 PM EDT 11/20/2024 9:20 PM EDT Narrative [facility] - 11/20/2024 10:02 PM EDT Reference Range: Males and non- females: Negative. us [employer] L Buzzoek DO LAB BLOOD ORDERABLES Final Re sult Performing Organization Address City/[facility]/ZIP Co de Phone Number [facility] [address] [place] [address] * Phosphorus (11/20/2024 9:17 PM EDT) Phosphorus, Plasma 3.5 2.5 - 4.5 mg/dL 11/20/2024 10:02 PM EDT [facility] Blood Venous blood specimen / Unknown Venipuncture / Unknown 11/20/2024 9:17 PM EDT 11/20/2024 9:20 PM EDT us Shani L Trafford DO LAB BLOOD ORDERABLES Final Re sult [facility] [address] [place] [address] * Magnesium (11/20/2024 9:17 PM EDT) Pathologist [facility] Magnesium, Plasma 2.1 1.9 - 2.4 mg/dL 11/20/2024 10:02 PM EDT [facility] Blood Venous blood specimen / Unknown Venipuncture / Unknown 11/20/2024 9:17 PM EDT 11/20/2024 9:20 PM EDT us Shani Shankar DO LAB BLOOD ORDERABLES Final Re sult [facility] [address] [place] [address] * (ABNORMAL) Blood gas panel, venous (11/20/2024 9:17 PM EDT) pH, Venous 7.38 7.32 - 7.43 LAB HEMATOLOGY METHOD 11/20/2024 9:21 PM EDT [facility] pCO2, Venous 44 37 - 52 mmHg LAB HEMATOLOGY METHOD 11/20/2024 9:21 PM EDT [facility] pO2, Venous 26 25 - 40 mmHg LAB HEMATOLOGY METHOD 11/20/2024 9:21 PM EDT [facility] SO2, Measured, Venous 44(L) 65 - 80 % LAB HEMATOLOGY METHOD 11/20/2024 9:21 PM EDT [facility] Base Excess, Venous 0.2 -2.0 - 3.0 mmol/L LAB HEMATOLOGY METHOD 11/20/2024 9:21 PM EDT [facility] Bicarbonate, Calculated, Venous 26 22 - 26 mmol/L LAB HEMATOLOGY METHOD 11/20/2024 9:21 PM EDT [facility] Hematocrit, Whole Blood 37.4 34.0 - 45.0 % LAB HEMATOLOGY METHOD 11/20/2024 9:21 PM EDT [facility] Sodium, Whole Blood 141 136 - 145 mmol/L LAB HEMATOLOGY METHOD 11/20/2024 9:21 PM EDT [facility] Potassium, Whole Blood 4.0 3.6 - 4.9 mmol/L LAB HEMATOLOGY METHOD 11/20/2024 9:21 PM EDT [facility] Chloride, Whole Blood 110(H) 97 - 107 mmol/L LAB HEMATOLOGY METHOD 11/20/2024 9:21 PM EDT [facility] Glucose, Whole Blood 98 74 - 99 mg/dL LAB HEMATOLOGY METHOD 11/20/2024 9:21 PM EDT [facility] Lactate, Venous, Whole Blood 1.0 0.5 - 2.2 mmol/L LAB HEMATOLOGY METHOD 11/20/2024 9:21 PM EDT [facility] Ionized Calcium, Whole Blood 4.8 4.6 - 5.1 mg/dL LAB HEMATOLOGY METHOD 11/20/2024 9:21 PM EDT [facility] Blood Venous blood specimen / Unknown Venipuncture / Unknown 11/20/2024 9:17 PM EDT 11/20/2024 9:20 PM EDT us Shani Shankar DO LAB BLOOD ORDERABLES Final Re sult Performing Organization Address City/[facility]/ZIP Co de Phone Number [facility] [address] [place] [address] * EKG now - STAT (adult) (11/20/2024 8:52 PM EDT) EKG DIAGNOSIS CLASS Abnormal MUSE ECG Ventricular Rate 83 BPM MUSE ECG Atrial Rate 83 BPM MUSE ECG MI Interval 128 ms MUSE ECG QRSD Interval 72 ms MUSE ECG QT Interval 342 ms MUSE ECG QTC Interval 401 ms MUSE ECG P Candler 60 degrees MUSE ECG R Candler 62 degrees MUSE ECG T Wave Candler 21 degrees MUSE ECG Diagnosis Sinus rhythm [...] 2 Antibody/Antigen Screen (04/18/2024 10:13 AM EDT) HIV 1 & 2 Antibody/Antigen Screen Non Reactive Non Reactive 04/18/2024 12:07 PM EDT [facility] Comment:Screening for HIV 1 & 2 antibodies, and P24 antigen is NONREACTIVE. No confirmatory testing is required. Blood Venous blood specimen / Unknown Venipuncture / Unknown 04/18/2024 10:13 AM EDT 04/18/2024 10:13 AM EDT us Shalonda Davies APRN LAB BLOOD ORDERABLES Susannah l Result Performing Organization Address City/[facility]/ZIP Co de Phone Number [facility] [address] [place] [address] * Hepatitis C Antibody - ED (02/07/2024 10:11 PM EDT) Hepatitis C Antibody Negative Negative 02/07/2024 11:11 PM EDT [facility] Blood Venous blood specimen / Unknown Venipuncture / Unknown 02/07/2024 10:11 PM EDT 02/07/2024 10:18 PM EDT us Mark Roger MD LAB BLOOD ORDERABLES Final Resu lt Performing Organization Address City/[facility] Co de Phone Number [facility] [address] [place] [address] from Last 3 Months or Most Recently Relevant to Health Maintenance Additional Health Concerns Active Problems Noted Date Diagnosed Date CPM S22 PP LABOR (OBSTETRICS) 02/24/2024 Insurance [place] Advance Directives * Full Code (Latest Code [...] Patient has decision-making capacity? Yes Care Teams Chief Science Officer Relationship Specialty [place] [address] [place] [address] [place] [address] PCP - General 11/16/24 Angela Oleary, RN [facility] Registered Nurse Cardiology 02/17/24
--- OUTSIDE RECORDS SUMMARY | 2025-01-06 11:18 | XMS_ITS | Encounter Summary ---
Author Organization Healthcare Address [address] [place] [address] Care Team Providers Care Count Room Clerk Name Role Phone Angela Oleary RN Unavailable Unavailable Rey Wyatt MD Primary Care Provider [phone] Encounter Details Date Type Department Care Team (Late st Contact Info) Description 12/30/2024 Orders Only [facility] Medicine Specialties [address] [place] [address] Silverio Tam PA [address] [place] [address] Social History Tobacco Use Types [...] often do you attend chur ch or hindu services? Never 02/22/2024 Do you [...] Recorded Patient Health Questionnaire-2 Score 0 12/15/2024 [facility] - Occupational Stress Questionnaire Answer Date [...] in a intermediate (including now)? No 02/09/2024 Stock[place] Depression Scale Answer Date Recorded [place] Depression Scale Total 6 08/08/2024 The thought [...] drink first t casi in the morning (EYE-WOODS WARDEN) to steady your nerves or to get rid of a hangover? 0 07/16/2024 CAGE Questionnaire Score 0 024 Utilities Answer Date Recorded In the past 12 months has th e [employer], gas, oil, or water company threatened to [...] EDT Appointment [facility] [address] [place] [address] Cody Barnett MD [address] [place] [address] 02/10/2025 10:00 AM EDT Office Visit [facility] Endocrinology [address] [place] [phone] Rachel Khan PA [address] [facility] [address] [place] [address] 02/16/2025 1:20 PM EDT Office Visit [facility] [facility]er[facility] [address] [facility] [place] [address] Courtney Torres MD [address] [facility] [address] [place] [address] 03/15/2025 3:30 PM EDT [facility] [address] [place] [address] Kendy Sanchez APRN [address] [place] [address] 04/17/2025 2:00 PM EDT Office Visit [facility] Medicine Specialties [address] [place] [address] Silverio Tam PA [address] [place] [address] documented as of this encounter [...] documented as of this encounter Care Teams Count Room Clerk Relationship Specialty Start Date End Date Rey Wyatt MD [address] [place] [address] PCP - General 11/16/24 Angela Oleary, RN [facility] Registered Nurse Cardiology 02/17/24 documented as of this encounter
--- OUTSIDE RECORDS SUMMARY | 2025-01-06 11:18 | XMS_ITS | Encounter Summary ---
Author Organization Healthcare Address [address] [place] [address] Care Team Providers Care Supervisor Name Role Phone Angela Oleary RN Unavailable Unavailable Rey Wyatt MD Primary Care Provider [phone] Encounter Details Date Type Department Care Team (Late st Contact Info) Description 12/20/2024 Results Follow-Up [facility] Medicine Specialties [address] [place] [address] Silverio Tam PA [address] [place] [address] Social History Tobacco Use Types [...] often do you attend chur ch or taoist services? Never 02/22/2024 Do you belong to any clubs o r organizations such as congregation groups, unions, fraternal or athletic groups, or [...] Recorded Patient Health Questionnaire-2 Score 0 12/15/2024 [facility] - Occupational Stress Questionnaire Answer [...] in a penitentiary (including now)? No 02/09/2024 Mcintosh Depression Scale Answer Date Recorded Mc[place]osh Depression Scale Total 6 08/08/2024 The thought [...] drink first t casi in the morning (EYE-PLATFORM ATTENDANT) to steady your nerves or to [...] EDT Appointment [facility] [address] [place] [address] Cody Barnett MD [address] [facility] [address] [place] [address] 02/10/2025 10:00 AM EDT Office Visit [facility] Endocrinology [address] [place] [address] Rachel Khan PA [address] [facility] [address] [place] [address] 02/16/2025 1:20 PM EDT Office Visit [facility] [place] [address] [facility] [place] [facility] [place] [address] Courtney Torres MD [address] [facility] [place] [facility] [address] [place] [address] 03/15/2025 3:30 PM EDT [facility] [address] [place] [address] Kendy Sanchez APRN [address] [facility] [address] [place] [address] 04/17/2025 2:00 PM EDT [facility] Medicine Specialties [address] [place] [address] Silverio Tam PA [address] [facility] [address] [place] [address] documented as of this encounter [...] as of this encounter Care Teams Supervisor Relationship Specialty Start Date End Date Rey Wyatt MD [address] [place] [address] PCP - General 11/16/24 Angela Oleary, RN [facility] Registered Nurse Cardiology 02/17/24 documented as of this encounter
--- OUTSIDE RECORDS SUMMARY | 2025-01-06 11:18 | XMS_ITS | Encounter Summary ---
Author Organization Healthcare Address [address] [id number] Care Team Providers Care Shoe Turner Name Role Phone Molly Louis MD Primary Care Provider [phone] Angela Oleary RN Unavailable Unavailable Rey Wyatt MD Primary Care Provider [phone] Reason for Visit * Reason Onset Date Comments Med Refill 03/03/2024 Encounter Details Date Type Department Care Team (Late st Contact Info) Description 03/03/2024 Refill [facility] Inpatient [address] [place] [address] Paris Marion MD [address] [place] [address] Social History Tobacco Use Types Packs/Day Years [...] often do you attend chur ch or holiness services? Never 02/22/2024 Do you belong to any clubs o r organizations such as faith groups, unions, fraternal or athletic groups, or [...] Recorded Patient Health Questionnaire-2 Score 0 02/17/2024 [facility] - Occupational Stress Questionnaire Answer Date Recorded [...] in a alf (including now)? No 02/09/2024 Bruner Depression Scale Answer Date Recorded Bruner Depression Scale Total 8 02/22/2024 The thought [...] EDT Appointment [facility] [address] [place] [address] Cody Barnett MD [address] [place] [address] 02/10/2025 10:00 AM EDT Office Visit [facility] Endocrinology [address] [place] [address] Rachel Khan PA [address] [place] [address] 02/16/2025 1:20 PM EDT Office Visit [facility] [place] [address] [place] [address] Courtney Torres MD [address] [place] [address] 03/15/2025 3:30 PM EDT Consult [facility] [address] [place] [address] Kendy Sanchez APRN [address] [place] [address] 04/17/2025 2:00 PM EDT Office Visit [facility] Medicine Specialties [address] [place] [address] Silverio Tam PA [address] [place] [address] documented as of this encounter [...] documented as of this encounter Care Teams Shoe Turner Relationship Specialty Start Date End Date Molly Louis MD [address] [place], [place] [id number] PCP - General Family Medicine 02/09/24 11/15/24 [place] [address] [place] [address] PCP - General 11/16/24 Angela Oleary, RN [facility] Registered Nurse Cardiology 02/17/24 documented as of this encounter
--- OUTSIDE RECORDS SUMMARY | 2025-01-06 11:18 | XMS_ITS | Encounter Summary ---
Author Organization Healthcare Address [address] [place] [address] Care Team Providers Care Injection Molding Machine Offbearer Name Role Phone Molly Louis MD Primary Care Provider [phone] Angela Oleary RN Unavailable Unavailable Rey Wyatt MD Primary Care Provider [phone] Reason for Visit * Reason Onset Date Comments Med Refill 03/03/2024 Encounter Details Date Type Department Care Team ([facility] Contact Info) Description 03/03/2024 Refill Medical Office Building Obstetrics and Gynecology [address] [facility], [address] [place] [address] CaledoniaEarle Villagomez MD [address] [facility] [address] [place] [address] Supervision of high risk in [...] How often do you attend chur or jehovah's witness services? Never 02/22/2024 Do you belong to [...] Recorded Patient Health Questionnaire-2 Score 0 02/17/2024 [facility] - [...] in a intermediate (including now)? No 02/09/2024 Center Depression Scale Answer Date Recorded Center Depression Scale Total 8 02/22/2024 The thought [...] requesting to speak with a nurse- see [email or web address] for details about symptoms she is experiencing. * Telephone Encounter - Luh Keenan RN - 03/04/2024 1:56 PM EDT Patient has refills on file. Needs to call pharmacy. Luh Keenan, RN documented in this encounter Plan of Treatment Upcoming Encounters Date Type Department Care Team (Late st Contact Info) Description 01/17/2025 7:00 AM EDT Appointment [facility] [address] [place] [address] Cody Barnett MD [address] [place] [address] 02/10/2025 10:00 AM EDT Office Visit [facility] [address] [place] [address] Rachel Khan PA [address] [facility] [address] [place] [address] 02/16/2025 1:20 PM EDT Office Visit [facility] [place] [address] [facility] [place] [address] Courtney Torres MD [address] [facility] [address] [place] [address] 03/15/2025 3:30 PM EDT Consult [facility] [address] [place] [address] Kendy Sanchez, TRISTAN [address] [place] [address] 04/17/2025 2:00 PM EDT Office Visit [facility] Medicine Specialties [address] [place] [address] Silverio Tam PA [address] [place] [address] documented as of this encounter [...] documented as of this encounter Care Teams Injection Molding Machine Offbearer Relationship Specialty Start Date End Date Molly Louis MD [address] [id number] PCP - General Family Medicine 02/09/24 11/15/24 Rey Wyatt MD [address] [place] [address] PCP - General 11/16/24 Angela Oleary, RN [facility] Registered Nurse Cardiology 02/17/24 documented as of this encounter
--- OUTSIDE RECORDS SUMMARY | 2025-01-06 11:18 | XMS_ITS | Referral Summary ---
Author Organization [employer] Address [address] [place] [address] Care Team Providers Care Invoice Coder Name Role Phone Molly Louis MD Primary Care Provider [phone] Allergies Active Allergy Reactions Criticality Noted Date [...] Date Guerrero rded Speak language other than Irish at home Not on file 08/13/2023 Want [...] on file Medical Devices Implanted Type Area Information [employer] Device Identifier Shelf Expiration Date Model / Serial / Lot K-Wire [id number] - [id number] Implanted:Qty: 1 on 08/04/2022 by Rex Rene MD at [facility] IMPLANTS Right: Hand [employer] [id number] / / Wire K-Wire 1.6mm - [id number] Implanted:Qty: 1 on 08/04/2022 by Rex Rene MD at [facility] IMPLANTS Right: Hand FreeATM GRP:FreeATM TECH [id number] / / Insurance [facility] Advance Directives For more information, please contact: [phone] * Full Code (Latest Code Status on File) Date Activated Date Inactivated Comments 08/04/2022 6:03 AM 08/04/2022 11:35 AM Care Teams Invoice Coder Relationship Specialty Start Date End Date Molly Louis MD [address] [place] [address] [address] [place] [address] PCP - General 08/22/24
== END ==
LOC: SL 11:11
PROVIDERS: PCP Nurse Practitioner Family; Visit Provider Nurse Practitioner Family
DX: E05.90 Thyrotoxicosis, unspecified without thyrotoxic crisis or storm (principal); G90.A Postural orthostatic tachycardia syndrome [POTS]; R06.83 Snoring
CPT/HCPCS: G0399

== ENCOUNTER 2025-01-13 14:32 | Outpatient (CLI) | payer MEDICAID, SELFPAY ==
--- OUTSIDE RECORDS SUMMARY | 2024-11-16 15:15 | XMS_ITS | Encounter Summary ---
Author Organization Healthcare Address [address] [place] [id number] Care Team Providers Care Voyage Management System Operator Name Role Phone Angela Oleary RN Unavailable Unavailable Rey Wyatt MD Primary Care Provider [phone] Encounter Details Date Type Department Care Team ([facility] st Contact Info) Description 11/16/2024 3:15 PM EDT Office Visit [facility] [place] [address] [facility], [address] [place] [address] Ashanti Camarena MD [address] [place] [phone] Pott's disease (Primary Dx) Social History Tobacco [...] How often do you attend chur or yarsani services? Never 02/22/2024 Do you belong to any clubs o r organizations such as temple groups, unions, fraternal or athletic groups, or [...] Recorded Patient Health Questionnaire-2 Score 0 11/16/2024 [facility] of Occupat ional Health - Occupational [...] to sleep or slept in a senior care (including now)? No 02/09/2024 [place] Depression Scale Answer Date Recorded [place] Depression Scale Total 6 08/08/2024 The thought [...] drink first t casi in the morning (EYE-DEPARTMENT STORE GENERAL MANAGER) to steady your nerves or to get [...] [facility] I spent 35 minutes performing the following components of the encounter (on the day of the encounter): reviewing History, examining the patient, reviewing imaging and/or labs, Independently interpreting echocardiogram, ECG and/or other imaging results, ordering tests or procedures, ordering medications, counseling the patient and family/caregiver, communicating with other health skin care consultant, care coordination, and entering clinical information in [...] EDT Appointment [facility] [address] [place] [address] Cody Barnett MD [address] [place] [address] 02/10/2025 10:00 AM EDT Office Visit [facility] Endocrinology [address] [place] [address] Rachel Khan PA [address] [place] [address] 02/16/2025 1:20 PM EDT Office Visit [facility] [place] [address], [address] [place] [address] Courtney Torres MD [address] [place] [address] 03/15/2025 3:30 PM EDT Consult [facility] [address], [address] [place] [address] Kendy Sanchez, TRISTAN [address] [place] [address] 04/17/2025 2:00 PM EDT Office Visit [facility] Medicine Specialties [address], [address] [place] [address] Silverio Tam PA [address] [place] [address] documented as of this encounter [...] documented as of this encounter Care Teams Voyage Management System Operator Relationship Specialty Start Date End Date Rey Wyatt MD [address] [facility] [address] [place] [address] PCP - General 11/16/24 Angela Oleary, RN [facility] Registered Nurse Cardiology 02/17/24 documented as of this encounter
--- OUTSIDE RECORDS SUMMARY | 2024-11-20 21:18 | XMS_ITS | Encounter Summary ---
Author Organization Healthcare Address [address] [place] [address] Care Team Providers Care Ammunition Officer Name Role Phone Angela Oleary RN Unavailable Unavailable Rey Wyatt MD Primary Care Provider [phone] Reason for Visit * Reason Comments Multiple Complaints Encounter Details Date Type Department Care Team ([facility] st Contact Info) Description 11/20/2024 9:18 PM EDT - 11/20/2024 11:32 PM EDT Emergency [facility] Emergency Department [address] [place] [address] Leo Souza MD [address] [place] [address] Palpitations (Primary Dx) Discharge Disposition: [...] How often do you attend chur or adventism services? Never 02/22/2024 Do you belong to any clubs o r organizations such as orthodox groups, unions, fraternal or athletic groups, or [...] Recorded Patient Health Questionnaire-2 Score 0 11/16/2024 [facility] - Occupational Stress Questionnaire [...] place to sleep or slept in a penitentiary (including now)? 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 60 tablet 11/11/2024 ondansetron (Zofran) 4 MG tablet Take 1 tablet (4 mg) by mouth every 8 (eight) hours if needed for nausea or vomiting. 3 tablet 5 07/18/2024 iloho Verio test strip 1 each by Other [...] day. 30 tablet 1 07/18/2024 sodium chloride ([place] Nasal [place]) 0.65 % nasal spray Administer 1 spray [...] 4 months currently. 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 [address] Cody Barnett MD [address] [place] [address] 02/10/2025 10:00 AM EDT Office Visit [facility] Endocrinology [address] [place] [id number] Rachel Khan PA [address] [facility] [address] [place] [address] 02/16/2025 1:20 PM EDT Office Visit [facility] [place] [address] [facility], [address] [place] [address] Courtney Torres MD [address] [address] [place] [address] 03/15/2025 3:30 PM EDT Consult [place] [facility] [address] [place] [address] Kendy Sanchez APRN [address] [place] [address] 04/17/2025 2:00 PM EDT Office Visit [facility] Medicine Specialties [address] [place] [address] Silverio Tam PA [address] [place] [address] Scheduled Orders Name Type Priority [...] HEMATOLOGY METHOD 11/20/2024 9:[address] [facility] RBC Count 4.26 3.90 - 5.20 10*6/uL LAB HEMATOLOGY METHOD 11/20/2024 9:[address] [facility] HGB 11.8 11.2 - 15.7 g/dL LAB HEMATOLOGY METHOD 11/20/2024 9:[address] [facility] HCT 35.8 34.0 - 45.0 % LAB HEMATOLOGY METHOD 11/20/2024 9:[address] [facility] Platelet Count 197 155 - 369 10*3/uL LAB HEMATOLOGY METHOD 11/20/2024 9:[address] [facility] MCV 84 79 - 98 fL LAB HEMATOLOGY METHOD 11/20/2024 9:[address] [facility] MCH 27.7 26.0 - 32.0 pg LAB HEMATOLOGY METHOD 11/20/2024 9:[address] [facility] MCHC 33.0 30.7 - 35.5 g/dL LAB HEMATOLOGY METHOD 11/20/2024 9:[address] [facility] RDW 12.5 11.5 - 14.5 % LAB HEMATOLOGY METHOD 11/20/2024 9:[address] [facility] MPV 11.6 8.8 - 12.5 fL LAB HEMATOLOGY METHOD 11/20/2024 9:[address] [facility] nRBC 0.0 <=0.0 per 100 WBCs LAB HEMATOLOGY METHOD 11/20/2024 9:[address] [facility] Blood Venous blood specimen / Unknown Venipuncture / Unknown 11/20/2024 9:17 PM EDT 11/20/2024 9:20 PM EDT us Radha Trujillo DO LAB BLOOD ORDERABLES Final Re sult [facility] [address] [place] [address] * (ABNORMAL) Blood gas panel, venous (11/20/2024 9:17 PM EDT) pH, Venous 7.38 7.32 - 7.43 LAB HEMATOLOGY METHOD 11/20/2024 9:[address] [facility] pCO2, Venous 44 37 - 52 mmHg LAB HEMATOLOGY METHOD 11/20/2024 9:[address] [facility] pO2, Venous 26 25 - 40 mmHg LAB HEMATOLOGY METHOD 11/20/2024 9:[address] [facility] SO2, Measured, Venous 44(L) 65 - 80 % LAB HEMATOLOGY METHOD 11/20/2024 9:[address] [facility] Base Excess, Venous 0.2 -2.0 - 3.0 mmol/L LAB HEMATOLOGY METHOD 11/20/2024 9:[address] [facility] Bicarbonate, Calculated, Venous 26 22 - 26 mmol/L LAB HEMATOLOGY METHOD 11/20/2024 9:[address] [facility] Hematocrit, Whole Blood 37.4 34.0 - 45.0 % LAB HEMATOLOGY METHOD 11/20/2024 9:[address] [facility] Sodium, Whole Blood 141 136 - 145 mmol/L LAB HEMATOLOGY METHOD 11/20/2024 9:[address] [facility] Potassium, Whole Blood 4.0 3.6 - 4.9 mmol/L LAB HEMATOLOGY METHOD 11/20/2024 9:[address] [facility] Chloride, Whole Blood 110(H) 97 - 107 mmol/L LAB HEMATOLOGY METHOD 11/20/2024 9:[address] [facility] Glucose, Whole Blood 98 74 - 99 mg/dL LAB HEMATOLOGY METHOD 11/20/2024 9:[address] [facility] Lactate, Venous, Whole Blood 1.0 0.5 - 2.2 mmol/L LAB HEMATOLOGY METHOD 11/20/2024 9:[address] [facility] Ionized Calcium, Whole Blood 4.8 4.6 - 5.1 mg/dL LAB HEMATOLOGY METHOD 11/20/2024 9:[address] [facility] Blood Venous blood specimen / Unknown Venipuncture / Unknown 11/20/2024 9:17 PM EDT 11/20/2024 9:20 PM EDT us Radha Trujillo DO LAB BLOOD ORDERABLES Final Re sult [facility] [address] [place] [address] * (ABNORMAL) Free T4, Plasma (11/20/2024 9:17 PM EDT) Free T4, Plasma 2.4(H) 0.8 - 1.7 ng/dL 11/20/2024 9:[address] [facility] Blood Venous blood specimen / Unknown Venipuncture / Unknown 11/20/2024 9:17 PM EDT 11/20/2024 9:20 PM EDT Narrative [facility] - 11/20/2024 9:47 PM EDT Free T4 Trimester Specific Ranges 1st Trimester 0.9 - 1.50 ng/dL 2nd Trimester 0.7 - 1.40 ng/dL 3rd Trimester 0.7 - 1.24 ng/dL [employer] [place] LAB BLOOD ORDERABLES Final Re sult Performing Organization Address City/[facility] Co de Phone Number [facility] [address] [place] [address] * (ABNORMAL) Thyroid Stimulating Hormone, Plasma (11/20/2024 9:17 PM EDT) Thyroid Stimulating Hormone, Plasma <0.01(L) 0.40 - 4.20 uIU/mL 11/20/2024 10:02 PM EDT [facility] Blood Venous blood specimen / Unknown Venipuncture / Unknown 11/20/2024 9:17 PM EDT 11/20/2024 9:20 PM EDT Narrative [facility] - 11/20/2024 10:02 PM EDT Trimester Specific Ranges TSH ( IU/mL) 1st Trimester 0.1 - 3.0 2nd Trimester 0.19 - 4.06 3rd Trimester 0.3 - 3.7 [place] LAB BLOOD ORDERABLES Final Re sult Performing Organization Address City/[facility]/ZIP Co de Phone Number [facility] [address] [place] [address] * Troponin now and 120 min (11/20/2024 9:17 PM EDT) Troponin T, High Sensitivity, 0 Hour <6 <14 ng/L 11/20/2024 9:47 PM EDT [facility] Blood Venous blood specimen / Unknown Venipuncture / Unknown 11/20/2024 9:17 PM EDT 11/20/2024 9:20 PM EDT [employer] Radha Flaca Vonnie DO LAB BLOOD ORDERABLES Final Re sult Performing Organization Address City/[facility]/ZIP Co de Phone Number [facility] [address] [place] [address] * Phosphorus (11/20/2024 9:17 PM EDT) Phosphorus, Plasma 3.5 2.5 - 4.5 mg/dL 11/20/2024 10:[address] [facility] Blood Venous blood specimen / Unknown Venipuncture / Unknown 11/20/2024 9:17 PM EDT 11/20/2024 9:20 PM EDT [employer] Radha Flaca [employer] DO LAB BLOOD ORDERABLES Final Re sult Performing Organization Address [facility]/ZIP Co de Phone Number [facility] [address] [place] [address] * Magnesium (11/20/2024 9:17 PM EDT) Magnesium, Plasma 2.1 1.9 - 2.4 mg/dL 11/20/2024 10:[address] [facility] Blood Venous blood specimen / Unknown Venipuncture / Unknown 11/20/2024 9:17 PM EDT 11/20/2024 9:20 PM EDT [employer] DO LAB BLOOD ORDERABLES Final Re sult Performing Organization Address [facility]/ZIP Co de Phone Number [facility] [address] [place] [address] * (ABNORMAL) CMP (11/20/2024 9:17 PM EDT) Glucose, Plasma 100(H) 74 - 99 mg/dL 11/20/2024 10:[address] [facility] BUN, Plasma 12 7 - 21 mg/dL 11/20/2024 10:[address] [facility] Creatinine, Plasma 0.89 0.60 - 1.10 mg/dL 11/20/2024 10:[address] [facility] BUN/Creatinine Ratio 13 11/20/2024 10:[address] [facility] Sodium, Plasma 143 136 - 145 mmol/L 11/20/2024 10:[address] [facility] Potassium, Plasma 4.2 3.6 - 4.9 mmol/L 11/20/2024 10:[address] [facility] Chloride, Plasma 106 97 - 107 mmol/L 11/20/2024 10:[address] [facility] CO2, Plasma 24 22 - 29 mmol/L 11/20/2024 10:[address] [facility] Anion Gap 13 6 - 16 mmol/L 11/20/2024 10:[address] [facility] Total Calcium, Plasma 9.8 8.9 - 10.2 mg/dL 11/20/2024 10:[address] [facility] Total Protein 7.4 6.3 - 7.9 g/dL 11/20/2024 10:[address] [facility] Albumin, Plasma 4.4 3.5 - 5.2 g/dL 11/20/2024 10:[address] [facility] AST, Plasma 13 10 - 35 U/L 11/20/2024 10:[address] [facility] ALT, Plasma 14 10 - 35 U/L 11/20/2024 10:[address] [facility] Alkaline Phosphatase, Plasma 53 35 - 104 U/L 11/20/2024 10:[address] [facility] Total Bilirubin, Plasma 1.0 0.2 - 1.1 mg/dL 11/20/2024 10:[address] [facility] eGFRcr 91.8 mL/min/1.7 3m*2 11/20/2024 10:[address] [facility] Comment:Reported eGFRcr in m L/min/1.73m2 is based the CKD-EPI 2020 equation that does not use a race coefficient. Blood Venous blood specimen / Unknown Venipuncture / Unknown 11/20/2024 9:17 PM EDT 11/20/2024 9:20 PM EDT [employer] DO LAB BLOOD ORDERABLES Final Re sult Performing Organization Address [facility]/ZIP Co de Phone Number [facility] [address] [place] [address] * hCG qualitative (11/20/2024 9:17 PM EDT) Test Negative Negative 11/20/2024 10:[address] [facility] Blood Venous blood specimen / Unknown Venipuncture / Unknown 11/20/2024 9:17 PM EDT 11/20/2024 9:[address] [facility] - 11/20/2024 10:02 PM EDT Reference Range: Males and non- females: Negative. us [employer] DO LAB BLOOD ORDERABLES Final Re sult Performing Organization Address [facility] de Phone Number [facility] [address] [place] [address] * EKG now - STAT (adult) (11/20/2024 8:52 PM EDT) EKG DIAGNOSIS CLASS Abnormal MUSE ECG Ventricular Rate 83 BPM MUSE ECG Atrial Rate 83 BPM MUSE ECG MS Interval 128 ms MUSE ECG QRSD Interval 72 ms MUSE ECG QT Interval 342 ms MUSE ECG QTC Interval 401 ms MUSE ECG P [place] 60 degrees MUSE ECG R [place] 62 degrees MUSE ECG T Wave [place] 21 degrees MUSE ECG Diagnosis Sinus rhythm [...] ORDERABLES Final Resu lt Performing Organization Address [facility] Co de Phone Number MUSE ECG documented [...] 2122 (New Bag - Prov ider: Jolene Veras RN) ondansetron (Zofran) injection 4 mg (COMPLETED) 4 mg, Intravenous, Once, 1 dose, On 11/20/24 at 2100, STAT 2122 (Given - Provid er: Jolene Veras RN) [...] documented as of this encounter Care Teams Ammunition Officer Relationship Specialty Start Date End Date Rey Wyatt MD [address] [place] [address] PCP - General 11/16/24 Angela Oleary, RN [facility] Registered Nurse Cardiology 02/17/24 documented as of this encounter
--- OUTSIDE RECORDS SUMMARY | 2024-12-07 07:03 | XMS_ITS | Encounter Summary ---
Author Organization [facility] Address [address] [place] [address] Care Team Providers Care Cathode Ray Tube Assembler Name Role Phone Angela Oleary RN Unavailable Unavailable Rey Wyatt MD Primary Care Provider [phone] Reason for Referral * Imaging (Routine) - Closed Specialty Diagnoses / Procedures Referred By Mili joe Referred To Contact Gastroenterology Diagnoses Hematochezia Abdominal pain, epigastric Procedures Patency Capsule Silverio Tam PA [address] [place] [address] Phone: tel: fax: Referral ID Status Reason Start Date Expiration Date V isits Requested Visits Authorized [id number] Closed Specialty Services Required 10/17/2024 04/18/2026 1 1 Reason for Visit * Imaging (Routine) - Closed Specialty Diagnoses / Procedures Referred By Contac t Referred To Contact Gastroenterology Diagnoses Hematochezia Abdominal pain, epigastric Procedures Patency Capsule Silverio Tam PA [address] [place] [address] Phone: tel: fax: Referral ID Status Reason Start Date Expiration Date V isits Requested Visits Authorized [id number] Closed Specialty Services Required 10/17/2024 04/18/2026 1 1 Encounter Details Date Type Department Care Team (Latest Contact Info) Description 12/07/2024 7:03 AM EDT - 12/07/2024 11:59 PM EDT Hospital Encounter [facility] Endoscopy [address] [place] [address] Estuardo Jon MD [address] [place] [address] Diarrhea, unspecified type (Primary Dx); [...] often do you attend chur ch or bahai services? Never 02/22/2024 Do you belong to any clubs o r organizations such as lutheran groups, unions, fraternal or athletic groups, or [...] Recorded Patient Health Questionnaire-2 Score 0 12/15/2024 [facility] of Occupat ional [facility] - Occupational Stress Questionnaire Answer Date [...] place to sleep or slept in a usp (including now)? No 02/09/2024 [place] Depression Scale Answer Date Recorded [place] Depression Scale Total 6 08/08/2024 The thought [...] drink first t casi in the morning (EYE-CLIENT TECHNICAL SUPPORT ASSOCIATE) to steady your nerves or to get rid of a hangover? 0 07/16/2024 CAGE Questionnaire Score 0 024 Utilities Answer Date Recorded In the past 12 months has th e [employer], gas, oil, or water [employer] threatened to shut off services in your [...] capsule 1 07/18/2024 Blood Glucose Monitoring Suppl (AdBira NetworkTouch Verio Reflect) w/Device kit 04/14/2024 busPIRone (Buspar) [...] mild pain. 30 tablet 1 07/18/2024 Lancets (AdBira NetworkTouch Delica Plus [id number]) [facility] 04/14/2024 methIMAzole (Tapazole) 10 MG tablet Take 1 tablet by mouth daily. 60 tablet 11/11/2024 ondansetron (Zofran) 4 MG tablet Take 1 tablet (4 mg) by mouth every 8 (eight) hours if needed for nausea or vomiting. 3 tablet 5 07/18/2024 AdBira NetworkTouch Verio test strip 1 each by Other [...] day. 30 tablet 1 07/18/2024 sodium chloride ([place] Nasal Elsie) 0.65 % nasal spray Administer 1 spray [...] EDT Appointment [facility] [address] [place] [address] Cody Barnett MD [address] [facility] [address] [place] [address] 02/10/2025 10:00 AM EDT [facility] [address] [place] [address] Rachel Khan PA [address] [place] [address] 02/16/2025 1:20 PM EDT Office Visit [facility] [place] [address] [facility], [address] [place] [address] Courtney Torres MD [address] [place] [address] 03/15/2025 3:30 PM EDT Consult [facility] [address] [place] [address] Kendy Sanchez, MASTER GLAZIER [address] [place] [address] 04/17/2025 2:00 PM EDT Office Visit [facility] Medicine Specialties [address] [place] [address] Silverio Tam PA [address] [place] [address] documented as of this encounter [...] documented as of this encounter Care Teams Cathode Ray Tube Assembler Relationship Specialty Start Date End Date Rey Wyatt MD [address] [place] [address] PCP - General 11/16/24 Angela Oleary, RN [facility] Registered Nurse Cardiology 02/17/24 documented as of this encounter
--- OUTSIDE RECORDS SUMMARY | 2024-12-15 14:30 | XMS_ITS | Encounter Summary ---
Author Organization [facility] Address [address] [place] [address] Care Team Providers Care Industrial Court Magistrate Name Role Phone Angela Oleary RN Unavailable Unavailable Rey Wyatt MD Primary Care Provider [phone] Reason for Referral * Consultation (Routine) - Authorized Specialty Diagnoses / Procedures Referred By Mili joe Referred To Contact Diagnoses Abdominal pain, epigastric Diarrhea, unspecified type Postural orthostatic tachycardia syndrome (POTS) Hematochezia Silverio Tam PA [id number] [place] [address] Phone: tel: fax: Referral ID Status Reason Start Date Expiration Date V isits Requested Visits Authorized [id number] Authorized 12/15/2024 06/16/2026 1 1 Reason for Visit * Reason Comments Hematochezia Encounter Details Date Type Department Care Team (Late st Contact Info) Description 12/15/2024 2:30 PM EDT [facility] Visit [facility] [address] [place] [address] [facility] [address] [facility] [address] [place] [address] Weight loss (Primary Dx); Abdominal [...] week 02/22/2024 How often do you attend [facility] or lutheran services? Never 02/22/2024 Do you belong to [...] Recorded Patient Health Questionnaire-2 Score 0 12/15/2024 [facility] - Occupational Stress Questionnaire Answer Date [...] place to sleep or slept in a mcc (including now)? 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 0 07/16/2024 CAGE Questionnaire Score 0 024 Utilities Answer Date Recorded In the past 12 months has th e [employer], gas, oil, or water company threatened to [...] encounter Miscellaneous Notes * Progress Notes - Silveiro Tam PA - 12/15/2024 2:30 PM EDT [...] disease. She is supposed also be seeing [facility] for her POTs; but may also [...] min Stress: No Stress Concern Present (02/22/2024) [place] [facility] - Occupational Stress Questionnaire Feeling of Stress : Not at all Social Connections: Moderately Isolated (02/22/2024) Social Connection and Isolation Panel [NHANES] Frequency of Communication with Friends and Family: More than three times a week Frequency of Social Gatherings with Friends and Family: Once a week Attends Orthodoxy Services: Never Active Member of Clubs or [...] day before colonoscopy Blood Glucose Monitoring Suppl (Atrum Coal Verio Reflect) w/Device kit busPIRone (BUSPAR) 5 [...] mg, Oral, Every 6 hours PRN Lancets ([employer]Touch Delica Plus [id number]) misc methIMAzole (TAPAZOLE) 10 mg, Oral, Daily ondansetron (ZOFRAN) 4 mg, Oral, Every 8 hours PRN ondansetron ODT (ZOFRAN-ODT) 4 mg, Oral, Every 8 hours PRN [employer] Verio test strip 1 each, As needed [...] tablet 1 tablet, Oral, Daily sodium chloride ([place] Nasal [place]) 0.65 % nasal spray 1 spray, Each [...] 04/26/2002 Influenza, injectable, quadrivalent, preservative free 04/29/2023 [place] COVID-19 Vaccine (Blue Cap) 18+ 02/21/2021 MMR [...] EDT Appointment [facility] [address] [place] [address] Cody Barnett MD [address] [facility] [address] [place] [phone] 02/10/2025 10:00 AM EDT Office Visit [facility] Endocrinology [address] [place] [address] Rachel Khan PA [address] [facility] [address] [place] [address] 02/16/2025 1:20 PM EDT Office Visit [facility] [place] [address] [facility] [place] [address] Courtney Torres MD [address] [facility] [address] [place] [phone] 03/15/2025 3:30 PM EDT Consult [facility] [address] [place] [address] Kendy Sanchez, DIRECTOR OF CONVENTION SERVICES [address] [place] [address] 04/17/2025 2:00 PM EDT Office Visit [facility] Medicine Specialties [address] [place] [address] Silverio Tam, PA [address] [place] [address] Scheduled Referrals Name Type Priority [...] Detected Not Detected 12/19/2024 2:26 PM EDT [facility] Blood Venous blood specimen / Unknown Venipuncture / Unknown 12/15/2024 3:29 PM EDT 12/15/2024 3:30 PM EDT Narrative [facility] - 12/19/2024 2:26 PM EDT [...] ORDERABLES Final Res ult Performing Organization Address [facility] Co de Phone Number [facility] [address] [place] [address] * T3 (12/15/2024 3:29 PM EDT) Pathologist [facility] T3, Serum 177 87 - 187 ng/dL 12/15/2024 4:54 PM EDT [facility] Blood Venous blood specimen / Unknown Venipuncture / Unknown 12/15/2024 3:29 PM EDT 12/15/2024 3:30 PM EDT [facility] BLOOD ORDERABLES Final Res ult Performing Organization Address [facility] de Phone Number [facility] [address] [place] [address] * (ABNORMAL) CBC and Differential (12/15/2024 3:29 PM EDT) [facility] WBC Count 5.38 3.70 - 10.30 10*3/uL LAB HEMATOLOGY METHOD 12/15/2024 4:38 PM EDT [facility] RBC Count 4.81 3.90 - 5.20 10*6/uL LAB HEMATOLOGY METHOD 12/15/2024 4:38 PM EDT [facility] HGB 12.6 11.2 - 15.7 g/dL LAB HEMATOLOGY METHOD 12/15/2024 4:38 PM EDT [facility] HCT 39.7 34.0 - 45.0 % LAB HEMATOLOGY METHOD 12/15/2024 4:38 PM EDT [facility] Platelet Count 311 155 - 369 10*3/uL LAB HEMATOLOGY METHOD 12/15/2024 4:38 PM EDT [facility] MCV 83 79 - 98 fL LAB HEMATOLOGY METHOD 12/15/2024 4:38 PM EDT [facility] MCH 26.2 26.0 - 32.0 pg LAB HEMATOLOGY METHOD 12/15/2024 4:38 PM EDT [facility] MCHC 31.7 30.7 - 35.5 g/dL LAB HEMATOLOGY METHOD 12/15/2024 4:38 PM EDT [facility] RDW 12.2 11.5 - 14.5 % LAB HEMATOLOGY METHOD 12/15/2024 4:38 PM EDT [facility] MPV 11.2 8.8 - 12.5 fL LAB HEMATOLOGY METHOD 12/15/2024 4:38 PM EDT [facility] nRBC 0.0 <=0.0 per 100 WBCs LAB HEMATOLOGY METHOD 12/15/2024 4:38 PM EDT [facility] Differential Type Automated LAB HEMATOLOGY METHOD 12/15/2024 4:38 PM EDT [facility] Neutrophils % 61 % LAB HEMATOLOGY METHOD 12/15/2024 4:38 PM EDT [facility] Lymphocytes % 32 % LAB HEMATOLOGY METHOD 12/15/2024 4:38 PM EDT [facility] Monocytes % 5 % LAB HEMATOLOGY METHOD 12/15/2024 4:38 PM EDT [facility] Eosinophils % 1 % LAB HEMATOLOGY METHOD 12/15/2024 4:38 PM EDT [facility] Basophils % 1 % LAB HEMATOLOGY METHOD 12/15/2024 4:38 PM EDT [facility] Immature Granulocytes % 0 % LAB HEMATOLOGY METHOD 12/15/2024 4:38 PM EDT [facility] Neutrophils Absolute 3.33 1.60 - 6.10 10*3/uL LAB HEMATOLOGY METHOD 12/15/2024 4:38 PM EDT [facility] Lymphocytes Absolute 1.70 1.20 - 3.90 10*3/uL LAB HEMATOLOGY METHOD 12/15/2024 4:38 PM EDT [facility] Monocytes Absolute 0.25(L) 0.30 - 0.90 10*3/uL LAB HEMATOLOGY METHOD 12/15/2024 4:38 PM EDT [facility] Eosinophils Absolute 0.03 0.00 - 0.50 10*3/uL LAB HEMATOLOGY METHOD 12/15/2024 4:38 PM EDT [facility] Basophils Absolute 0.05 0.00 - 0.10 10*3/uL LAB HEMATOLOGY METHOD 12/15/2024 4:38 PM EDT [facility] Immature Granulocytes Absolute 0.02 0.00 - 0.06 10*3/uL LAB HEMATOLOGY METHOD 12/15/2024 4:38 PM EDT [facility] Blood Venous blood specimen / Unknown Venipuncture / Unknown 12/15/2024 3:29 PM EDT 12/15/2024 3:30 PM EDT Narrative [facility] - 12/15/2024 4:38 PM EDT Therapeutic decision making should be based on absolute values, rather than percentages. us [facility] BLOOD ORDERABLES Final Res ult [facility] [address] [place] [address] * (ABNORMAL) Comprehensive Metabolic Panel, Plasma (12/15/2024 3:29 PM EDT) Glucose, Plasma 84 74 - 99 mg/dL 12/15/2024 4:54 PM EDT [facility] BUN, Plasma 8 7 - 21 mg/dL 12/15/2024 4:54 PM EDT [facility] Creatinine, Plasma 0.60 0.60 - 1.10 mg/dL 12/15/2024 4:54 PM EDT [facility] BUN/Creatinine Ratio 13 12/15/2024 4:54 PM EDT [facility] Sodium, Plasma 140 136 - 145 mmol/L 12/15/2024 4:54 PM EDT [facility] Potassium, Plasma 4.1 3.6 - 4.9 mmol/L 12/15/2024 4:54 PM EDT [facility] Chloride, Plasma 105 97 - 107 mmol/L 12/15/2024 4:54 PM EDT [facility] CO2, Plasma 21(L) 22 - 29 mmol/L 12/15/2024 4:54 PM EDT [facility] Anion Gap 14 6 - 16 mmol/L 12/15/2024 4:54 PM EDT [facility] Total Calcium, Plasma 9.4 8.9 - 10.2 mg/dL 12/15/2024 4:54 PM EDT [facility] Total Protein 8.1(H) 6.3 - 7.9 g/dL 12/15/2024 4:54 PM EDT [facility] Albumin, Plasma 4.6 3.5 - 5.2 g/dL 12/15/2024 4:54 PM EDT [facility] AST, Plasma 16 10 - 35 U/L 12/15/2024 4:54 PM EDT [facility] ALT, Plasma 23 10 - 35 U/L 12/15/2024 4:54 PM EDT [facility] Alkaline Phosphatase, Plasma 58 35 - 104 U/L 12/15/2024 4:54 PM EDT [facility] Total Bilirubin, Plasma 0.7 0.2 - 1.1 mg/dL 12/15/2024 4:54 PM EDT [facility] eGFRcr 127.1 mL/min/1.7 3m*2 12/15/2024 4:54 PM EDT [facility] Comment:Reported eGFRcr in m L/min/1.73m2 is based the CKD-EPI 2020 equation that does not use a race coefficient. Blood Venous blood specimen / Unknown Venipuncture / Unknown 12/15/2024 3:29 PM EDT 12/15/2024 3:30 PM EDT us [facility] BLOOD ORDERABLES Final Res ult [facility] [address] [place] [address] * Prothrombin Time/INR (12/15/2024 3:29 PM EDT) Prothrombin Time 13.7 12.0 - 14.3 sec LAB COAGULATION METHOD 12/15/2024 5:05 PM EDT [facility] INR 1.0 0.9 - 1.1 LAB COAGULATION METHOD 12/15/2024 5:05 PM EDT [facility] Blood Venous blood specimen / Unknown Venipuncture / Unknown 12/15/2024 3:29 PM EDT 12/15/2024 3:30 PM EDT Narrative [facility] - 12/15/2024 5:05 PM EDT OPTIMAL INR RANGES FOR PATIENT ON ORAL ANTICOAGULANT THERAPY Prevention of venous thromboembolism INR 2.0 to 3.0 In patients with heart disease: Atrial fibrillation INR 2.0 to 3.0 Valvular heart disease INR 2.0 to 3.0 Tissue heart valves INR 2.0 to 3.0 Mechanical prosthetic valves INR 2.5 to 3.5 Prevention of recurrent MA INR 2.5 to 3.5 [facility] BLOOD ORDERABLES Final Res ult Performing Organization Address City/[facility]/ZIP Co de Phone Number [facility] [address] [place] [address] * (ABNORMAL) Brayan Henson IgG Ab (12/15/2024 3:29 PM EDT) EBV ANTIBODY TO VIRAL CAPSID ANTIGEN IGG 185.0(H) 0.0 - 21.9 U/mL 12/18/2024 11:11 AM EDT [facility]) Blood Venous blood specimen / Unknown Venipuncture / Unknown 12/15/2024 3:29 PM EDT 12/15/2024 3:30 PM EDT Narrative [employer] [facility]) - 12/18/2024 11:11 AM EDT INTERPRETIVE INFORMATION: Brayan-Henson Virus Antibody to Viral Capsid Antigen, IgG 17.9 U/mL or less.......Not Detected 18.0-21.9 U/mL..........Indeterminate - Repeat testing in 10-14 days may be helpful. 22.0 U/mL or greater....Detected Performed By: [facility] [address] [place] [address] Bee Rancher: Wilber Pardo MD, PhD CLIA Number: [id number] [facility] BLOOD ORDERABLES Final Res ult Performing Organization Address City/[facility]/ZIP Co de Phone Number [facility]) [address] [place] [address] * Brayan-Henson virus VCA, IgM (12/15/2024 3:29 [...] helpful. 44.0 U/mL or greater....Detected Performed By: [facility] [address] [place] [address] Bee Rancher: Wilber Pardo MD, PhD CLIA Number: [id number] us [facility] BLOOD ORDERABLES Final Res ult [facility] [place] [facility]) [address] [place] [address] documented in this encounter Visit Diagnoses Diagnosis [...] documented as of this encounter Care Teams Industrial Court Magistrate Relationship Specialty Start Date End Date Rey Wyatt MD [address] [facility] [address] [place] [address] PCP - General 11/16/24 Angela Oleary, RN [facility] Registered Nurse Cardiology 02/17/24 documented as of this encounter
--- OUTSIDE RECORDS SUMMARY | 2025-01-13 14:34 | XMS_ITS | Encounter Summary ---
Author Organization Healthcare Address [address] [place] [address] Care Team Providers Care Service Car Driver Name Role Phone Molly Louis MD Primary Care Provider [phone] Angela Oleary RN Unavailable Unavailable Rey Wyatt MD Primary Care Provider Reason for Visit * Reason Onset Date Comments Med Refill 03/23/2024 Encounter Details Date Type Department Care Team ([facility] Contact Info) Description 03/23/2024 Refill Medical Office Building Obstetrics and Gynecology [address] [facility], [address] [place] [address] Shalonda Davies, TRANSPORTATION ATTENDANT [address] [facility] [address] [place] [address] Social History Tobacco Use Types [...] How often do you attend chur or yazidism services? Never 02/22/2024 Do you [...] Recorded Patient Health Questionnaire-2 Score 0 02/17/2024 [facility] of Occupat ional Health - Occupational Stress [...] place to sleep or slept in a long-term (including now)? No 02/09/2024 [place] Depression Scale Answer Date Recorded [place] Depression Scale Total 8 02/22/2024 The thought [...] drink first t casi in the morning (EYE-FINANCIAL ADMINISTRATION OFFICER) to steady your nerves or to [...] EDT Appointment [facility] [address] [place] [address] Cody Barnett MD [address] [place] [address] 02/10/2025 10:00 AM EDT [facility] [address] [place] [phone] Rachel Khan PA [address] [facility] [address] [place] [address] 02/16/2025 1:20 PM EDT Office Visit [facility] Delphia Rochester [address] [facility], [address] [place] [address] Courtney Torres MD [address] [facility] [address] [place] [address] 03/15/2025 3:[address] [facility] [address] [place] [address] Kendy Sanchez APRN [address] [place] [address] 04/17/2025 2:00 PM EDT Office Visit [facility] [address] [place] [address] Silverio Tam PA [address] [place] [address] documented as of this encounter [...] documented as of this encounter Care Teams Service Car Driver Relationship Specialty Start Date End Date Molly Louis MD [address] [place] [address] PCP - General Family Medicine 02/09/24 11/15/24 Rey Wyatt MD [address] [place] [address] PCP - General 11/16/24 Angela Oleary, RN [facility] Registered Nurse Cardiology 02/17/24 documented as of this encounter
--- OUTSIDE RECORDS SUMMARY | 2025-01-13 14:34 | XMS_ITS | Encounter Summary ---
Author Organization Healthcare Address [address] [place] [address] Care Team Providers Care Manager Distribution Center Name Role Phone Angela Oleary RN Unavailable Unavailable Rey Wyatt MD Primary Care Provider [phone] Encounter Details Date Type Department Care Team [...] week 02/22/2024 How often do you attend [facility] or oriental orthodox services? Never 02/22/2024 Do you belong to any clubs o r organizations such as pentecostal groups, unions, fraternal or athletic groups, or [...] in a usp (including now)? No 02/09/2024 [place] Depression Scale Answer Date Recorded [place] Depression Scale Total 6 08/08/2024 The thought [...] drink first t casi in the morning (EYE-ASSESSMENT DIRECTOR) to steady your nerves or to get [...] Appointment [facility] [address] [place] [phone] Cody Barnett MD [address] [place] [address] 02/10/2025 10:00 AM EDT [facility] [address] [place] [phone] Rachel Khan PA [address] [place] [address] 02/16/2025 1:20 PM EDT Office Visit [facility] [place] [address], [address] [place] [address] Courtney Torres MD [address] [place] [address] 03/15/2025 3:30 PM EDT Consult [facility] [address] [place] [address] Kendy Sanchez, FIELD ARTILLERY OPERATIONS SPECIALIST [address] [place] [address] 04/17/2025 2:00 PM EDT Office Visit [facility] Medicine Specialties [address] [place] [address] Silverio Tam PA [address] [place] [address] documented as of this [...] as of this encounter Care Teams Manager Distribution Center Relationship Specialty Start Date End Date Rey Wyatt MD [address] [place] [address] PCP - General 11/16/24 Angela Oleary, RN [facility] Registered Nurse Cardiology 02/17/24 documented as of this encounter
--- OUTSIDE RECORDS SUMMARY | 2025-01-13 14:34 | XMS_ITS | Data Portability ---
Author Organization [place] [facility] Address [address] [place] [address] Assessment Encounter Date Assessment Date Assessment LastModified by Organization Details LastModified Time 12/18/2023 12/18/2023 Patient is ___weeks . Discussed plan. [email or web address] Not available 12/17/2023 10:25:59 Plan of Treatment Reminders Order Date Submit Date Provider Last Modified By Organization Details Last Modified Time Details Appointments None recorded. Lab urinalysis , dipstick [address], [address] [place], [address], 4 17:15:18 unlisted lab - qnatal(R) advanced 2023 024 [facility], [address], [place], [address], 4 01:26:17 rapid strep group A, throat 2023 024 [email or web address], [address] [place] [address], [place], [address], 4 13:42:01 urinalysis , dipstick 2023 024 [facility], [address] [place], [address], 4 10:47:53 Referral None recorded. Procedures None recorded. Surgeries None recorded. Imaging None recorded. Medication Orders cefdinir 300 mg capsule 2023 024 [email or web address] [facility], [address] [place] [address] 2, [place], [place], [id number], 4 16:54:44 Patient TargetsNo targets recorded. Patient Instructions Encounter Date Encounter Id Patient Instructions Last Modified By Organization Details Last Modified Time 01/06/2024 [id number] Increase fluid intake, take tylenol and motrin for pain/fever as needed, advised to take medication as prescribed to eradicate bacterial infection and reduce chances of antibiotic resistance. Change toothbrush in 24 hours. May return to school 24 hours after antibiotic therapy. Follow up with PCP or OB for symptoms not improving. Go to ER with any concerning symptoms. [email or web address] Not available 01/06/2024 14:35:51 Reason for Referral None Reported. Results Created Date Observation Date Name Description Value Unit Range Abnormal Flag Note LastModifiedBy Organization Detail LastModifiedTime 12/09/19 24 12/10/2023 HEPAT IC FUNCT ION PANEL protein, total 7.7 g/dL 6.1-8. 1 normal Not Available [facility] [address] [place], [address], 12/10/2023 11:16:57 12/09/19 24 12/10/2023 HEPAT IC FUNCT ION PANEL albumin 4.7 g/dL 3.6-5. 1 normal Not Available [facility] [address] [facility] [place], [address], 12/10/2023 11:16:57 12/09/19 24 12/10/2023 HEPAT IC FUNCT ION PANEL globulin 3.0 g/dL_ (calc ) 1.9-3. 7 normal Not Available [facility] [address] [facility] Center[facility] [place], [address], 12/10/2023 11:16:57 12/09/19 24 12/10/2023 HEPAT IC FUNCT ION PANEL albumin/glob ulin ratio 1.6 (calc ) 1.0-2. 5 normal Not Available [facility] [address] [facility] [place], [address], 12/10/2023 11:16:57 12/09/19 24 12/10/2023 HEPAT IC FUNCT ION PANEL bilirubin, total 2.6 mg/dL 0.2-1. 2 high Not Available [facility] [address] [place], [address], 12/10/2023 11:16:57 12/09/19 24 12/10/2023 HEPAT IC FUNCT ION PANEL bilirubin, direct 0.4 mg/dL < or = 0.2 high Not Available [facility] [place], [address], 12/10/2023 11:16:57 12/09/19 24 12/10/2023 HEPAT IC FUNCT ION PANEL bilirubin, indirect 2.2 mg/dL _(farhan c) 0.2-1. 2 high Not Available [facility] [address] [place], [address], 12/10/2023 11:16:57 12/09/19 24 12/10/2023 HEPAT IC FUNCT ION PANEL alkaline phosphatase 37 U/L 31-125 normal Not Available [employer] [facility] [address] [facility] [place], [address], 12/10/2023 11:16:57 12/09/19 24 12/10/2023 HEPAT IC FUNCT ION PANEL AST 14 U/L 10-30 normal Not Available [facility] [place], [address], 12/10/2023 11:16:57 12/09/19 24 12/10/2023 HEPAT IC FUNCT ION PANEL ALT 12 U/L 6-29 normal Not Available [facility] [address] [facility], [place], [address], 12/10/2023 11:16:57 12/09/19 24 12/10/2023 HCG, TOTAL , [place] [address] mIU/m L high Refer ence Range Nonpr [...] appro goldie by the FDA or the [facility] actur er of the assay . Not Available [facility] [address] [facility], [place], [address], 12/10/2023 11:16:58 12/09/19 24 12/09/2023 urina lysis , dipst ick Leukocytes Modera te Not Available [address], [address], 12/09/2023 08:11:20 12/09/19 24 12/09/2023 urina lysis , dipst ick Nitrite negati ve Not Available [address], [address], 12/09/2023 08:11:20 12/09/19 24 12/09/2023 urina lysis , dipst ick Urobilinogen .2 Not Available [address], [address], 12/09/2023 08:11:20 12/09/19 24 12/09/2023 urina lysis , dipst ick Protein Negati ve Not Available [address], [address], 12/09/2023 08:11:20 12/09/19 24 12/09/2023 urina lysis , dipst ick pH 5.5 Not Available [address], [address], 12/09/2023 08:11:20 12/09/19 24 12/09/2023 urina lysis , dipst ick Blood Negati ve Not Available [address], [address], 12/09/2023 08:11:20 12/09/19 24 12/09/2023 urina lysis , dipst ick Specific Sheridan 1.025 Not Available [address], [address], 12/09/2023 08:11:20 12/09/19 24 12/09/2023 urina lysis , dipst ick Ketone Small Not Available [address], [address], 12/09/2023 08:11:20 12/09/19 24 12/09/2023 urina lysis , dipst ick Bilirubin Negati ve Not Available [address], [address], 12/09/2023 08:11:20 12/09/19 24 12/09/2023 urina lysis , dipst ick Glucose Negati ve Not Available [address], [address], 12/09/2023 08:11:20 12/09/19 24 12/09/2023 urina lysis , dipst ick Appearance Clear Not Available [address], [address], 12/09/2023 08:11:20 12/09/19 24 12/09/2023 urina lysis , dipst ick Color Dark Yellow Not Available [facility] [address] [facility], [place], [address], 12/09/2023 08:11:20 12/09/19 24 12/09/2023 pregn suzanne test, urine HCG positi ve Not Available [facility] [address] [facility], [place], [address], 12/09/2023 08:11:34 12/18/19 24 12/22/2023 OBSTE TRIC PANEL W/FOU RTH GENER ATION HIV AND HEPAT ITIS C AB W/REF L white blood cell count 6.2 thous and/u L 3.8-10 .8 normal Not Available [facility] [address] [facility] [place], [address], 12/22/2023 10:53:19 12/18/19 24 12/22/2023 OBSTE TRIC PANEL W/FOU RTH GENER ATION HIV AND HEPAT ITIS C AB W/REF L red blood cell count 4.24 iron on/uL 3.80-5 .10 normal Not Available [facility] [address] [place], [address], 12/22/2023 10:53:19 12/18/19 24 12/22/2023 OBSTE TRIC PANEL W/FOU RTH GENER ATION HIV AND HEPAT ITIS C AB W/REF L hemoglobin 12.7 g/dL 11.7-1 5.5 normal Not Available [facility] [address] [facility] [place], [address], 12/22/2023 10:53:19 12/18/19 24 12/22/2023 OBSTE TRIC PANEL W/FOU RTH GENER ATION HIV AND HEPAT ITIS C AB W/REF L hematocrit 38.7 % 35.0-4 5.0 normal Not Available [facility] [address] [place], [address], 12/22/2023 10:53:19 12/18/19 24 12/22/2023 OBSTE TRIC PANEL W/FOU RTH GENER ATION HIV AND HEPAT ITIS C AB W/REF L MCV 91.3 fL 80.0-1 00.0 normal Not Available [facility] [address] [facility], [place], [address], 12/22/2023 10:53:19 12/18/19 24 12/22/2023 OBSTE TRIC PANEL W/FOU RTH GENER ATION HIV AND HEPAT ITIS C AB W/REF L MCH 30.0 pg 27.0-3 3.0 normal Not Available [facility] [address] [facility], [place], [address], 12/22/2023 10:53:19 12/18/19 24 12/22/2023 OBSTE TRIC PANEL W/FOU RTH GENER ATION HIV AND HEPAT ITIS C AB W/REF L MCHC 32.8 g/dL 32.0-3 6.0 normal Not Available [facility] [address] [place], [address], 12/22/2023 10:53:19 12/18/19 24 12/22/2023 OBSTE TRIC PANEL W/FOU RTH GENER ATION HIV AND HEPAT ITIS C AB W/REF L RDW 12.0 % 11.0-1 5.0 normal Not Available [facility] [address] [place], [address], 12/22/2023 10:53:19 12/18/19 24 12/22/2023 OBSTE TRIC PANEL W/FOU RTH GENER ATION HIV AND HEPAT ITIS C AB W/REF L platelet count 143 thous and/u L 140-40 0 normal Not Available [facility] [address], [place], [address], 12/22/2023 10:53:19 12/18/19 24 12/22/2023 OBSTE TRIC PANEL W/FOU RTH GENER ATION HIV AND HEPAT ITIS C AB W/REF L MPV 11.8 fL 7.5-12 .5 normal Not Available [facility] [address], [place], [address], 12/22/2023 10:53:19 12/18/19 24 12/22/2023 OBSTE TRIC PANEL W/FOU RTH GENER ATION HIV AND HEPAT ITIS C AB W/REF L absolute neutrophils 5233 cells /uL 1500-7 800 normal Not Available [facility] [address], [place], [address], 12/22/2023 10:53:19 12/18/19 24 12/22/2023 OBSTE TRIC PANEL W/FOU RTH GENER ATION HIV AND HEPAT ITIS C AB W/REF L absolute lymphocytes 651 cells /uL 850-39 00 low Not Available [facility] [address], [place], [address], 12/22/2023 10:53:19 12/18/19 24 12/22/2023 OBSTE TRIC PANEL W/FOU RTH GENER ATION HIV AND HEPAT ITIS C AB W/REF L absolute monocytes 273 cells /uL 200-95 0 normal Not Available [facility] [address], [place], [address], 12/22/2023 10:53:19 12/18/19 24 12/22/2023 OBSTE TRIC PANEL W/FOU RTH GENER ATION HIV AND HEPAT ITIS C AB W/REF L absolute eosinophils 12 cells /uL 15-500 low Not Available [facility] [address], [place], [address], 12/22/2023 10:53:19 12/18/19 24 12/22/2023 OBSTE TRIC PANEL W/FOU RTH GENER ATION HIV AND HEPAT ITIS C AB W/REF L absolute basophils 31 cells /uL 0-200 normal Not Available [facility] [address], [place], [address], 12/22/2023 10:53:19 12/18/19 24 12/22/2023 OBSTE TRIC PANEL W/FOU RTH GENER ATION HIV AND HEPAT ITIS C AB W/REF L neutrophils 84.4 % normal Not Available [facility] [address], [place], [address], 12/22/2023 10:53:19 12/18/19 24 12/22/2023 OBSTE TRIC PANEL W/FOU RTH GENER ATION HIV AND HEPAT ITIS C AB W/REF L lymphocytes 10.5 % normal Not Available [facility] [address], [place], [address], 12/22/2023 10:53:19 12/18/19 24 12/22/2023 OBSTE TRIC PANEL W/FOU RTH GENER ATION HIV AND HEPAT ITIS C AB W/REF L monocytes 4.4 % normal Not Available [facility] [address] [facility], [place], [address], 12/22/2023 10:53:19 12/18/19 24 12/22/2023 OBSTE TRIC PANEL W/FOU RTH GENER ATION HIV AND HEPAT ITIS C AB W/REF L eosinophils 0.2 % normal Not Available [facility] [place] [address], [place], [address], 12/22/2023 10:53:19 12/18/19 24 12/22/2023 OBSTE TRIC PANEL W/FOU RTH GENER ATION HIV AND HEPAT ITIS C AB W/REF L basophils 0.5 % normal Not Available [facility] [address] [facility], [place], [address], 12/22/2023 10:53:19 12/18/19 24 12/22/2023 OBSTE TRIC [...] pregn suzanne. Not Available [facility] [address] [facility], [place], [address], 12/22/2023 10:53:19 12/18/19 24 12/22/2023 OBSTE TRIC PANEL W/FOU RTH GENER ATION HIV AND HEPAT ITIS C AB W/REF L ABO group O Not Available [facility] [place] [facility] [address] [facility], [place], [address], 12/22/2023 10:53:19 12/18/19 24 12/22/2023 OBSTE TRIC PANEL W/FOU RTH GENER ATION HIV AND HEPAT ITIS C AB W/REF L Rh type RH(D) POSITI VE For addit ional infor cliff up e refer to http: //[facility] emily shah.Que stDia gnost ics.c om/fa q/FAQ 111 (This link is being provi ded for infor martell shen/ educa domi l purpo ses only. ) Not Available [facility] [address] [facility], [place], [address], 12/22/2023 10:53:19 12/18/19 24 12/22/2023 OBSTE TRIC PANEL W/FOU RTH GENER ATION HIV AND HEPAT ITIS C AB W/REF L RPR (DX) w/refl titer and confirmatory testing NON-RE ACTIVE non-re active normal No labor atory evide nce of syphi lis. If recen t expos ure is suspe cted, submi t a new sampl e in 2-4 weeks . Not Available [facility] [address] [facility], [place], [address], 12/22/2023 10:53:19 12/18/19 24 12/22/2023 OBSTE TRIC PANEL W/FOU RTH GENER ATION HIV AND HEPAT ITIS C AB W/REF L hepatitis B surface antigen NON-RE ACTIVE non-re active normal For addit ional infor cliff up e refer to http: //[facility] emily shah.que stdia gnost ics.c om/fa q/FAQ (This link is being provi ded for infor martell shen/ educa domi l purpo ses only. ) Not Available [facility] [address] [facility], [place], [address], 12/22/2023 10:53:19 12/18/19 24 12/22/2023 OBSTE TRIC [...] virus . Not Available [facility] [address] [facility], [place], [address], 12/22/2023 10:53:19 12/18/19 24 12/22/2023 OBSTE TRIC [...] matio n pleas e refer to http: //[facility] emily shah.bill stdia gnost ics.c om/fa q/FAQ 106 (This link is being provi ded for infor matio nal/ educa domi l purpo ses only. ) The perfo rmanc e of this assay has not been clini leobardo valid ated in patie nts less than 2 years old. Not Available [facility] [address] [facility], [place], [address], 12/22/2023 10:53:19 12/18/19 24 12/22/2023 OBSTE TRIC [...] a test for HCV RNA (test code 58774 ) is sugge sted. For addit ional infor matio n pleas e refer to http: //[facility] duong stdia gnost ics.c om/fa q/FAQ 22v1 (This link is being provi ded for infor martell shen/ yang oliva purpo ses only. ) Not Available [facility] [address], [place], [address], 12/22/2023 10:53:19 01/06/20 24 01/06/2024 rapid strep group A, throa t Strep negati ve Not Available [address], [place], [address], 01/06/2024 13:13:50 01/15/20 24 01/26/2024 QNATA L(R) ADVAN GREGORIO number of fetuses? 1 Not Available [facility] [address], [place], [address], 01/26/2024 01:26:17 01/15/20 24 01/26/2024 QNATA L(R) ADVAN GREGORIO advanced maternal age? NOT GIVEN Not Available [facility] [address], [place], [address], 01/26/2024 01:26:17 01/15/20 24 01/26/2024 QNATA L(R) ADVAN GREGORIO abnormal meliton? NOT GIVEN Not Available [facility] [address], [place], [address], 01/26/2024 01:26:17 01/15/20 24 01/26/2024 QNATA L(R) ADVAN GREGORIO abnormal US? NOT GIVEN Not Available [facility] [address] [place], [address], 01/26/2024 01:26:17 01/15/20 24 01/26/2024 QNATA L(R) ADVAN GREGORIO personal/fam history? NOT GIVEN Not Available [facility] [address], [place], [address], 01/26/2024 01:26:17 01/15/20 24 01/26/2024 QNATA L(R) ADVAN GREGORIO interpretati on SEE NOTE This speci men showe d an expec sathish repre senta tion of chrom osome 21, 18, and 13 mater ial. See Elias rivera below . 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) Negati ve Not Available [facility] [address] [facility], [place], [address], 01/26/2024 01:26:17 01/15/20 24 01/26/2024 QNATA L(R) ADVAN GREGORIO trisomy 13 (T13) Negati ve Not Available [facility] [address] [facility], [place], [address], 01/26/2024 01:26:17 01/15/20 24 01/26/2024 QNATA L(R) ADVAN GREGORIO Y chromosome Not detect ed Not Available [facility] [address] [facility], [place], [address], 01/26/2024 01:26:17 01/15/20 24 01/26/2024 QNATA L(R) ADVAN GREGORIO Y chr. interpretati on SEE NOTE Consi stent with a femal e fetus . Not Available [facility] [address], [place], [address], 01/26/2024 01:26:17 01/15/20 24 01/26/2024 QNATA L(R) ADVAN GREGORIO sex chromosome No aneupl oidy Not Available [facility] [address] [place], [address], 01/26/2024 01:26:17 01/15/20 24 01/26/2024 QNATA L(R) ADVAN GREGORIO sex chromosome interp SEE NOTE No appar ent abnor malit y was detec sathish. See Limi tatio ns below . Not Available [facility] [address] [place], [address], 01/26/2024 01:26:17 01/15/20 24 01/26/2024 QNATA L(R) ADVAN GREGORIO microdeletio n Not detect ed Not Available [facility] [address] [place], [address], 01/26/2024 01:26:17 01/15/20 24 01/26/2024 QNATA L(R) ADVAN GREGORIO microdeletio n interp SEE NOTE No appar ent abnor malit y was detec sathish. See Limi tatio ns below . Not Available [facility] [address] [facility] [place], [address], 01/26/2024 01:26:17 01/15/20 24 01/26/2024 QNATA L(R) ADVAN GREGORIO gestational age(in weeks) 10 Not Available [facility] [address] [place], [address], 01/26/2024 01:26:17 01/15/20 24 01/26/2024 QNATA L(R) ADVAN GREGORIO gestational age (in days) 3 Not Available [facility] [address] [facility], [address], 01/26/2024 01:26:17 01/15/20 24 01/26/2024 QNATA L(R) ADVAN GREGORIO fraction 9.49% Not Available [facility] [address] [place], [address], 01/26/2024 01:26:17 01/15/20 24 01/26/2024 QNATA L(R) ADVAN GREGORIO laboratory comments SEE NOTE A porti on of the testi ng was perfo rmed at [facility] . Labor atory resul ts and submi tted clini farhan infor matio n revie wed by Tomi Lozano, Ph.D. , [facility] , [facility]. Not Available [facility] [address] [place], [address], 01/26/2024 01:26:17 01/15/20 24 01/26/2024 QNATA L(R) [...] origi n. Not Available [facility] [place] [address] [facility], [place], [address], 01/26/2024 01:26:17 01/15/20 24 01/26/2024 QNATA L(R) [...] sment . Not Available [facility] [place] [address] [facility], [place], [address], 01/26/2024 01:26:17 01/15/20 24 01/26/2024 QNATA L(R) ADVAN GREGROIO methodology SEE NOTE Circu latin g cell- [...] by FDA. Not Available [facility] [address] [place], [address], 01/26/2024 01:26:17 01/15/20 24 01/26/2024 CHLAM YDIA/ N.RO ORRHO EAE AND T. VAGIN ADILSON RNA, QL TMA chlamydia trachomatis RNA, tma, urogenital NOT DETECT ED not detect ed normal Not Available [facility] [place] [address] [facility], [place], [address], 01/26/2024 01:26:18 01/15/20 24 01/26/2024 CHLAM YDIA/ N.RO ORRHO EAE AND T. VAGIN ADILSON RNA, QL TMA neisseria gonorrhoeae RNA, tma, urogenital NOT DETECT ED not detect ed normal Not Available [facility] [address] [place], [address], 01/26/2024 01:26:18 01/15/20 24 01/26/2024 CHLAM YDIA/ [...] refer to https ://ed jesusati on.qu estdi Quantum. com/f aq/FA Q154 (This link is being provi ded for infosung shah/ yang oliva purpo ses only. ) Not Available [facility] [place] [facility] [address] [facility], [place], [address], 01/26/2024 01:26:18 01/15/20 24 01/26/2024 CHLAM YDIA/ N.RO ORRHO EAE AND T. VAGIN ADILSON RNA, QL TMA trichomonas vaginalis RNA, ql tma NOT DETECT ED not detect ed normal For addit ional infor cliff up refer to http: //[facility] emily shah.que stdia gnost ics.c om/ faq/T katie reynolds tma (This link is being provi ded for infor martell shen/ educsebastián oliva purpo ses only. ) Not Available [facility] [place] [facility] [address] [facility], [place], [address], 01/26/2024 01:26:18 01/15/20 24 01/26/2024 DRUG MONIT ORING , PANEL 8 WITH CONFI RMATI ON, URINE alcohol metabolites NEGATI VE NG/mL <500 normal Not Available [facility] [place] [facility] [address] [facility], [place], [address], 01/26/2024 01:26:18 01/15/20 24 01/26/2024 DRUG MONIT ORING , PANEL 8 WITH CONFI RMATI ON, URINE amphetamines NEGATI VE NG/mL <500 normal Not Available [facility] [place] [facility] [address] [facility], [place], [address], 01/26/2024 01:26:18 01/15/20 24 01/26/2024 DRUG MONIT ORING , PANEL 8 WITH CONFI RMATI ON, URINE benzodiazepi bony NEGATI VE NG/mL <100 normal Not Available [facility] [place] [address] [facility] [place], [address], 01/26/2024 01:26:18 01/15/20 24 01/26/2024 DRUG MONIT ORING , PANEL 8 WITH CONFI RMATI ON, URINE buprenorphin e NEGATI VE NG/mL <5 normal Not Available [facility] [place] [facility] [address] [place], [address], 01/26/2024 01:26:18 01/15/20 24 01/26/2024 DRUG MONIT ORING , PANEL 8 WITH CONFI RMATI ON, URINE cocaine metabolite NEGATI VE NG/mL <150 normal Not Available [facility] [address] [place], [address], 01/26/2024 01:26:18 01/15/20 24 01/26/2024 DRUG MONIT ORING , PANEL 8 WITH CONFI RMATI ON, URINE 6 acetylmorphi ne NEGATI VE NG/mL <10 normal Not Available [facility] [place] [facility] [address] [place], [address], 01/26/2024 01:26:18 01/15/20 24 01/26/2024 DRUG MONIT ORING , PANEL 8 WITH CONFI RMATI ON, URINE marijuana metabolite NEGATI VE NG/mL <20 normal Not Available [facility] [address] [place], [address], 01/26/2024 01:26:18 01/15/20 24 01/26/2024 DRUG MONIT ORING , PANEL 8 WITH CONFI RMATI ON, URINE MDMA NEGATI VE NG/mL <500 normal Not Available [facility] [address] [place], [address], 01/26/2024 01:26:18 01/15/20 24 01/26/2024 DRUG MONIT ORING , PANEL 8 WITH CONFI RMATI ON, URINE opiates NEGATI VE NG/mL <100 normal Not Available [facility] [place] [facility] [address] [place], [address], 01/26/2024 01:26:18 01/15/20 24 01/26/2024 DRUG MONIT ORING , PANEL 8 WITH CONFI RMATI ON, URINE oxycodone NEGATI VE NG/mL <100 normal Not Available [facility] [place] [facility] [address] [facility] [place], [address], 01/26/2024 01:26:18 01/15/20 24 01/26/2024 DRUG MONIT ORING , PANEL 8 WITH CONFI RMATI ON, URINE creatinine 89.6 mg/dL > or = 20.0 normal Not Available [facility] [place] [facility] [address] [facility] [place], [address], 01/26/2024 01:26:18 01/15/20 24 01/26/2024 DRUG MONIT ORING , PANEL 8 WITH CONFI RMATI ON, URINE pH 8.4 4.5-9. 0 normal Not Available [facility] [address] [facility] [place], [address], 01/26/2024 01:26:18 01/15/20 24 01/26/2024 DRUG MONIT ORING , PANEL 8 WITH CONFI RMATI ON, URINE oxidant NEGATI VE mcg/m L <200 normal Not Available [facility] [address] [place], [address], 01/26/2024 01:26:18 01/15/20 24 01/26/2024 DRUG MONIT [...] 10pm EST Not Available [facility] [address] [place], [address], 01/26/2024 01:26:19 01/15/20 24 01/26/2024 CULTU RE, URINE , ROUTI NE culture, urine, routine SEE NOTE CULTU RE, URINE , ROUTI NE Micro Numbe r: [id number] Test Statu s: Final Speci men Sourc e: Urine Speci men Quali ty: Adequ ate Resul t: No Growt h Not Available [facility] [address] [place], [address], 01/26/2024 01:26:19 01/15/20 24 01/15/2024 urina lysis , dipst ick Leukocytes Modera te Not Available [address], [address], 01/15/2024 16:55:16 01/15/20 24 01/15/2024 urina lysis , dipst ick Nitrite negati ve Not Available [address], [address], 01/15/2024 16:55:16 01/15/20 24 01/15/2024 urina lysis , dipst ick Urobilinogen .2 Not Available [address], [address], 01/15/2024 16:55:16 01/15/20 24 01/15/2024 urina lysis , dipst ick Protein Negati ve Not Available [address], [address], 01/15/2024 16:55:16 01/15/20 24 01/15/2024 urina lysis , dipst ick pH 6.0 Not Available [address], [address], 01/15/2024 16:55:16 01/15/20 24 01/15/2024 urina lysis , dipst ick Blood Negati ve Not Available [address], [address], 01/15/2024 16:55:16 01/15/20 24 01/15/2024 urina lysis , dipst ick Specific [place] 1.020 Not Available [address], [address], 01/15/2024 16:55:16 01/15/20 24 01/15/2024 urina lysis , dipst ick Ketone Negati ve Not Available [address], [address], 01/15/2024 16:55:16 01/15/20 24 01/15/2024 urina lysis , dipst ick Bilirubin Negati ve Not Available [address], [address], 01/15/2024 16:55:16 01/15/20 24 01/15/2024 urina lysis , dipst ick Glucose Negati ve Not Available [address], [address], 01/15/2024 16:55:16 12/11/19 24 12/11/2023 US, obste tric, trans vagin al No observ ation record ed. [email or web address] [address], [place], [address], 12/14/2023 10:33:57 12/18/1912/18/2023 US, obste tric, trans vagin al No observ ation record ed. [email or web address] [facility] [address] [place], [address], 12/23/2023 15:48:00 12/18/19 US, obste tric No observ ation record ed. [email or web address] [facility] [address] [place], [address], 12/18/2023 11:51:05 Result Notes None recorded. 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 3 15:59:21 Depressi ve disorder 66562011 Active 2022 Rhonda Watkins APRN [address] [place] [address], [address] 8, [employer] 3 15:59:36 Overacti ve urinary bladder 379548333 Active 2022 Rhonda Watkins APRN [address] [place] [address], [address] 8, [employer] 3 15:59:50 Mixed urinary incontin ence 902675723 Active 2022 Rhonda Watkins APRN [address] [place] [address], [address], [employer] 3 16:01:47 Acute pharyngi tis 280200821 Active 2022 Rhondacorey Watkins APRN [address] [place] [address], [address], [employer] 3 17:50:47 Missed period 27613599 Active 2022 Rhonda Watkins APRN [address] [place] [address], [address] 8, [employer] 3 13:04:58 Nausea and vomiting 55770960 Active 2022 Rhonda Watkins APRN [address] [place] [address], [address], [employer] 3 13:41:40 Constipa tion 89221849 Active 2022 Rhonda Watkins APRN [address] [place] [address], [address] 8, [employer] 3 13:41:44 Pelvic and perineal pain 995704737 Active 2022 Rhonda Watkins APRN [address] [place] [address], [address] 8, [employer] 3 17:12:13 Genital herpes simplex 06089126 Active 2022 Rhonda Watkins APRN [address] [place] [address], [address] 8, [employer] 3 17:12:40 Abdomina l pain 70434905 Active 2022 Rhonda Watkins APRN [address] [place] [address], [address] 8, [employer] 3 09:38:02 Streptoc occal sore throat 98740333 Active 2022 NEHEMIAH GRAVES-BC [address] [place] [address], [address], [employer] 3 08:58:06 Vaginal irritati on 047862228 Active 2023 Rhondacorey Odeniam, [employer] [address] [place], [address], [employer] 4 12:47:40 Pregnanc y 87580527 Completed 202308/30/2024 ESTELLE ONOFRE maxine [employer] 5 14:48:36 Tachycar brannon 3930297 Active 2023 On metoprolo l 12.5mg QD Francy Corey, DO [address] [place] [address], [address], [place] [employer] 4 14:10:47 Tachycar brannon 6230443 Completed 2023 On metoprolo l 12.5mg QD Francy Corey, DO [address] [place] [address], [address], [place] [employer] 4 14:10:47 Sore throat 023233135 Active 2023 NEHEMIAH Sims [address] [place] [address], [address] 8, [employer] 4 14:33:22 Gestatio n period, 9 weeks 335958 Active 2023 NEHEMIAH Sims [address] [place] [address], [address] 8, [employer] 4 14:33:29 Problem Notes None recorded. Procedures Surgical History Date Name Laterality Status Provider Name and Address Organization Details Recorded Time 12/11/19 Date of Last Pap Smear completed Francy Evans [employer] 10/20/2023 13:29:10 Tonsillectomy completed TELLO CHRISTINE [employer] 12/10/2022 14:43:50 hand repair completed BORIS JANE [employer] 07/23/2023 08:28:12 Dilation and Curettage completed TELLO CHRISTINE [employer]. 12/09/2023 10:10:06 Imaging Results None recorded. Procedure Notes None recorded. Medical Equipment None Reported. Allergies Allergen ID Allergen Name Allergen Category Reaction Reaction Severity Criticality Documentation Date Start Date Code Code System Note Provider Name and Address Organization Details Recorded Time 56234 Product containin g penicilli n (product) medicatio n Not available Not available Not available 12/10/2022 12761 8001 SNOMED TELLO [employer] 3 14:48:49 03091 Augmentin medicatio n Not available Not available Not available 12/10/2022 29751 2 RxNorm [employer] 3 14:48:54 Medications Name Sig Start Date [...] Updated DateTime 12/11/2023 167.64 cm TELLO SHERMAN [employer] 12/11/2023 16:30:09 Date Recorded Body weight Provider Name an d Address Organization Details Last Updated DateTime 12/16/2023 38171.333544 g Francy Nicole DO [address] [place] [address], [address], [employer]. 12/22/2023 12:17:21 Date Recorded Body height Body mass index (BMI) Systolic blood pressure Diastolic blood pressure Provider Name and Address Organization Details Last Updated DateTime 12/16/2023 167.64 cm 22.2 kg/m2 110 mm[Hg] 70 mm[Hg] Mychal Parnell [employer] 12/16/2023 09:55:12 Date Recorded Body weight Provider Name an d Address Organization Details Last Updated DateTime 12/18/2023 39507.23972 g Geno BREWSTER [address] [place] [address], [address], [employer]. 12/18/2023 11:47:26 Date Recorded Body height Body mass index (BMI) Provider Name and Address Organization Details Last Updated DateTime 12/18/2023 167.64 cm 22.1 kg/m2 TELLO CONKLINCO [employer] 12/18/2023 11:43:41 Date Recorded Body height Body mass index (BMI) Body weight Oxygen saturation Oxygen saturation in Arterial blood by Pulse oximetry Heart rate Body temperature Systolic blood pressure Diastolic blood pressure Provider Name and Address Organization Details Last Updated DateTime 167.64 cm 22.3 kg/m2 29417.7 5 g 98 % 98 % 81 /min 98.3 [degF] 113 mm[Hg] 73 mm[Hg] Shani Bowser [employer]. 13:12:47 Date Recorded Body height Provider Name an d Address Organization Details Last Updated DateTime 01/15/2024 167.64 cm Mychal Parnell [employer] 01/15/2024 16:54:15 Date Recorded Body weight Systolic blood pressure Diastolic blood pressure Provider Name and Address Organization Details Last Updated DateTime 01/15/2024 81983.5623 2 g 112 mm[Hg] 62 mm[Hg] Ean Means [employer] 01/15/2024 16:59:36 Social History Question Answer Notes LastModified by Organizat ion Details LastModified Time Tobacco Smoking Status Former Smoker BORIS goodman, [employer]. 07/23/2023 08:27:54 What Is Your Level Of [...] Or The Highest Degree You Have Received? [id number] Information not available 12/10/2022 Who Is Your Employer? [employer] Information not available 12/10/2022 Have There Been [...] What Is Your Current Pack Years? 10packyears [email or web address] Information not available 07/23/2023 Have You Ever [...] Has Tobacco Cessation Counseling Been Provided? Yes [email or web address] Information not available 10/20/2023 On What Date [...] used smokeless tobacco? Never used smokeless tobacco [place] [address] Information not available 07/23/2023 Are you currently employed? Yes Information not available 12/10/2022 Do you have transportation difficulties? No Information not available 12/10/2022 Are you able to walk? YESWOREST Information not available 12/10/2022 Do you have difficulty doing errands alone? No Information not available 12/10/2022 What is your occupation? [employer] Information not available 12/10/2022 Do you [...] available 12/10/2022 14:52:23 Medical History Condition Response Hospitalizations N Other Y Emergency room visit since last appointm ent. N Gynecological History Statement/Question Response Abnormal Pap [...] Organization Details Recorded Time IPV 2 completed [employer] SHERMAN null, [employer] 12/10/2022 14:42:16 MMR 2 completed [employer] SHERMAN null, [employer]. 12/10/2022 14:42:16 COVID-19 vaccine, vector-nr, rS-Ad26, PF, 0.5 mL 1 completed TELLOMedication [employer], [employer] 12/10/2022 14:42:16 Tdap 0 completed TE[employer]edication [employer] null, [employer] 12/10/2022 14:42:16 varicella 1 completed [employer] null, [employer] 12/10/2022 14:42:16 HPV, quadrivalent 1 completed [employer] null, [employer] 12/10/2022 14:42:16 Hep A, ped/adol, 2 dose 1 completed [employer] SHERMAN null, [employer] 12/10/2022 14:42:16 Hep A, ped/adol, 2 dose 0 completed [employer] null, [employer] 12/10/2022 14:42:16 DTaP, unspecified formulation 2 completed [employer] null, [employer] 12/10/2022 14:42:16 Influenza, split virus, quadrivalent, PF 3 completed Francy goodman [facility], [facility] 09/22/2023 12:41:20 Past Encounters Encounter ID Performer Location Encounter Start Date Encounter Closed Date Diagnosis/Indication Diagnosis SNOMED-CT Code Diagnosis ICD10 Code Diagnosis Note [id number] Rhonda Watkins [facility] [place] [address] 12/10/2022 14:38:30 12/10/2022 16:46:26 Pityriasis versicolor 87955595 B36.0 Depressive disorder 3548 9007 F32.A Overactive urinary bladder 730338744 N32.81 Mixed urin glenn incontinence 745437841 N39.46 Screening for malignant neoplasm of cervix 860666988 Z12.4 [id number] Rhonda Watkins [facility] [place] [address] 01/16/2023 14:12:44 01/16/2023 15:00:55 Vaginal irritation 364709289 N89.8 Acute pharyngitis 857242 003 J02.9 [id number] Rhonda Watkins [facility] [place] [address] 02/04/2023 07:51:37 02/05/2023 10:48:21 Pelvic and perineal pain 812436978 R10.2 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 rpes simplex 14509315 A60.9 [id number] Yolette Sotelo [address] [address] 04/18/2023 10:23:36 04/18/2023 11:55:33 Acute pharyngitis 727303791 J02.9 Influenza caused by Influenza A virus 870788522 J09.X2 off work until until Thursday [id number] Bharati Tong [address] [address] 04/21/2023 08:50:39 04/21/2023 09:56:48 Missed period 40840113 N92.5 Influenza caused by Influenza A virus 966694627 J09.X2 [id number] BG CATALAN, [address] [place] [address] 07/23/2023 08:09:18 07/23/2023 09:21:43 Viral screening 709650902 Z11.59 Streptococ farhan sore throat 29521273 J02.0 [id number] Rhonda Watkins [facility] [address] [place] [address] 09/22/2023 12:09:54 09/22/2023 13:01:44 Vaginal irritation 436012283 N89.8 [id number] Rhonda Watkins [facility] [place] [address] 10/20/2023 13:11:29 10/20/2023 15:12:45 Vaginal irritation 343221331 N89.8 [id number] TAMIA WILL MD [address] [address] [facility] [facility] [place] [address] 12/09/2023 09:32:48 12/09/2023 10:44:16 Missed period 74791581 N92.5 Intrauteri ne 48480223 Z34.90 [id number] TAMIA WILL MD [facility] [address] [place] [address] 12/11/2023 16:01:47 12/11/2023 16:33:10 [id number] Francy Nicole DO [facility] [address] [place] [address] 12/16/2023 09:48:15 12/16/2023 16:56:35 80329405 Z33.1 Dating US scheduled in 2 days Tachycardia 9824482 R00. 0 Prescribed metoprolol 25mg QD, has been taking 12.5 [id number] TAMIA WILL MD [facility] [address] [place] [address] 12/18/2023 10:55:41 12/18/2023 11:59:42 Intrauterine 16157173 Z34.90 [id number] Jocelyn Finney, [facility] [address] [address] 01/06/2024 12:33:43 01/06/2024 15:00:47 Sore throat 506257901 J02.9 Acute pharyngitis 959482 003 J02.9 Gestation period, 9 weeks 860081 Z3A.09 Normal weight 01893054 Z 68.22 [id number] Francy Nicole DO [facility] [address] [place] [address] 01/15/2024 16:31:36 01/15/2024 17:20:47 96101889 Z33.1 Health Concerns Section Related Observation LastModified by Organization Detai ls LastModified Time None Recorded Concern Status LastModified by Organization Details LastModified Time None Recorded Advance Directives Directive None Recorded Payers Insurance Date Sequence Insurance Name Policy Number Policy Zaidi Covered Member ID Zaidi Member ID Guarantor Name 06/13/2024 1 [facility] (MEDICAID HMO) [facility] [id number] [facility] 06/01/2023 1 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 [facility] 12/16/2023 SLIDING FEE SCHEDULE - DISCOUNT [facility] 12/16/2023 1 *SELF PAY* [facility] 12/16/2023 SLIDING FEE SCHEDULE - DISCOUNT [facility] 03/07/2024 2 *SELF PAY* [facility] 12/16/2023 [facility]ICA[facility] [id number] [facility] Notes Date Note Type Note Provider [...] is given warnings. TAMIA WILL MD [address] [place], [address], [employer]. 12/11/2023 16:35:43 12/16/2023 text/html This is a [...] in two days. Francy Nicole DO [address] [place], [address], [employer] 12/22/2023 12:21:03 01/06/2024 text/html Sore ThroatRepor [...] neck; no muffled voice;cough NEHEMIAH Sims [address] [place], [address], [employer]. 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 Francy Nicole, DO [address] [place] [address], [address], [facility] [employer], [employer]. 01/16/2024 14:11:27 OBGyn Episode Ob Episode Information Episode Created Date Number of Fetuses Patient Bloodtype Patient rh Status Prepregnancy Weight lbs Domestic Partner Domestic Partner Phone Father Name Machine Feller Status 12/11/19 1 CLOSED Fetus Data First [...] Domestic Partner Domestic Partner Phone Father Name Machine Feller Status 12/11/19 23 1 CLOSED Fetus Data [...] Domestic Partner Domestic Partner Phone Father Name Machine Feller Status 12/18/19 24 1 CLOSED Fetus Data First Name Last Name Admitted to NICU Weight (g) Sex Living Outcome Pediatric Complications Fetus ID Race Codes Race Delivery Type 2489.94 [id number] F true Full Term 8847 2106-3 White Problems Problem Notes Problem Name Start Date End Date Resolution Snomed Code Not e Tachycardia 12/22/2023 4784391 On meto prolol 12.5mg QD Cole Calculation Initial Cole Date Initial Exam Date Initial Exam Provider Initial Ultrasound Date Last Menstrual Period Date Ultra Sound Weeks Gestation 08/09/2023 12/18/2023 [email or web address] 12/18/2023 11/03/2023 6 Eighteen To Twenty Week Cole Update Ultra Sound Date Fundal Height At Umbil Quickening Date Ultra Sound Latest Weeks Gestation Final Cole Confirmed By Final Cole Confirmed Date Final Cole Date Ultra Sound Latest Days Gestation 0 [email or web address] 12/18/2023 08/09/19 25 0 Pre- Flowsheet Flowsheet Date 12/16/2023 Zepeda Score Blood Edema Fundus Height Fundus Units Glucose Ketones Leukocytes Nitrite Labor Signs Protein Cervic Dilation Cervic Effacement Cervic Station Type Weight in lbs Pre/Post Dialysis Refused With clothes 137.621773242389 BP Diastolic BP Location Tested BP Systolic [...] in lbs Pre/Post Dialysis Refused With clothes 137.448334738457 BP Diastolic BP Location Tested BP Systolic BP Type sitting Fetus Heart Rate Present Fetus Movement Comments Scan 6.3 week CRL. Labs toda y, 4 weeks Flowsheet Date 01/06/2024 Zepeda Score Blood Edema Fundus Height Fundus Units Glucose Ketones Leukocytes Nitrite Labor Signs Protein Cervic Dilation Cervic Effacement Cervic Station Type Weight in lbs Pre/Post Dialysis Refused With clothes 138.520092531470 BP Diastolic BP Location Tested BP Systolic BP Type 73 R arm 113 sitting Fetus Heart Rate Present Fetus Movement Comments Flowsheet Date 01/15/2024 Zepeda Score Blood Edema Fundus Height Fundus Units Glucose Ketones Leukocytes Nitrite Labor Signs Protein Cervic Dilation Cervic Effacement Cervic Station none neg Type Weight in lbs Pre/Post Dialysis Refused With clothes 136.781061161756 BP Diastolic BP Location Tested BP Systolic [...]
--- OUTSIDE RECORDS SUMMARY | 2025-01-13 14:34 | XMS_ITS | Encounter Summary ---
Author Organization Healthcare Address [address] [place] [address] Care Team Providers Care Experiential Therapist Name Role Phone Angela Oleary RN Unavailable Unavailable Rey Wyatt MD Primary Care Provider [phone] Encounter Details Date Type Department Care Team (Late st Contact Info) Description 12/16/2024 [facility] [address] [place] [address] Abundio Kyle MBBS [address] [phone] Social History Tobacco Use Types Packs/Day Years [...] Recorded Patient Health Questionnaire-2 Score 0 12/15/2024 [facility] - Occupational Stress Questionnaire Answer [...] a group home (including now)? 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 [address] Cody Barnett MD [address] [place] [address] 02/10/2025 10:00 AM EDT [facility] [address] [place] [address] Rachel Khan PA [address] [facility] [address] [place] [address] 02/16/2025 1:20 PM EDT Office Visit [facility] [place] [address] [facility], [address] [place] [address] Courtney Torres MD [address] [place] [address] 03/15/2025 3:[address] [facility] [address] [place] [address] Kendy Sanchez, TRISTAN [address] [place] [address] 04/17/2025 2:00 PM EDT Office Visit [facility] [address] [place] [address] Silverio Tam PA [address] [place] [address] Scheduled Orders Name Type Priority [...] documented as of this encounter Care Teams Experiential Therapist Relationship Specialty [place] [address] [place] [address] PCP - General 11/16/24 Angela Oleary, RN [facility] Registered Nurse Cardiology 02/17/24 documented as of this encounter
--- OUTSIDE RECORDS SUMMARY | 2025-01-13 14:34 | XMS_ITS | Data Portability ---
Author Organization [facility] & MELINA Brower ADMIN Address [address] [place] [id number] Care Team Providers Care Banking Pin Adjuster Name Role Phone MOLLY BOLTON Primary Care Provider Assessment No assessment recorded. Plan of Treatment Reminders Order Date Submit Date Provider Last Modified By Organization Details Last Modified Time Details Appointments MENTAL HEALTH 60 2024 11:00A M FLAVIA KIRBY Not available Not available Not available Lab urinalysi s, dipstick 2023 024 [email or web address] [facility] Primary Care- Floor 2, [address], [address], [address], [place], [address], 12/14/2023 13:09:11 culture, urine 2023 024 [facility] [address] [place] [address] [place], [address], 12/14/2023 19:07:28 Referral behaviora health referral - Anxiety not respondin g to buspirone . patient. Counselin g and medicatio n managemen t. 2023 024 KEATON [facility], [address] [place], [address], 04/05/2024 14:52:37 dermatolo gist referral 2023 024 [email or web address] [facility], [address] [place] [address], [address], 10/20/2023 12:02:18 Procedures None recorded. Surgeries None recorded. Imaging None recorded. Medication Orders doxylamin e 10 mg-pyrido xine (vit B6) 10 mg tablet,de layed release 2023 024 [facility], [address] [place] [address] [address], [place], [place], [id number], 12/14/2023 11:36:15 cephalexi n 500 mg tablet 2023 024 [facility], [address] [place] [address] [address], [place], [place], [id number], 02/02/2024 08:44:10 ondansetr on 4 mg disintegr ating tablet 2023 024 [facility], [address] [place] [address] [address], [place], [place], [id number], 12/14/2023 11:38:18 labetalol 100 mg tablet 2023 024 [facility], [address] [place] [address] [address], [place], [place], [id number], 02/02/2024 08:44:37 Patient TargetsNo targets recorded. Patient Instructions Encounter Date Encounter Id Patient Instructions Last Modified By Organization Details Last Modified Time 09/22/2023 [id number] Follow-up for yearly exam 02/2024 and prn [email or web address] Not available 09/22/2023 18:44:56 12/14/2023 [id number] Follow-up prn [email or web address] Not available 12/14/2023 21:37:32 02/02/2024 [id number] Follow-up prn (patient's current symptoms to be managed by cardiology and OB/MFM). 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 patient. Counseling and medication management. Referring Physician: Molly Bolton [facility] Medicine, Encounter Date: 03/22/2024 Results Created Date [...] 2 - 3 MONTH S Not Available [facility] (Pre-Op Clinic) [address] [place] [address] [place], [address], 12/02/2023 17:18:42 12/02/19 24 12/02/2023 HCG BETA QUANT ITATI VE note Unles s other juan noted testi ng perfo rmed at: [facility] [address] [place] [address] Micah plascencia MD Not Available [facility] (Pre-Op Clinic) [address] [place] [address] [place], [address], 12/02/2023 17:18:42 12/14/19 24 12/14/2023 CULTU RE URINE W PRESU MP ID results [facility] 12-14 912 No Signi fican t Growt h at 1 Day [facility] 12-15 711 No Signi fican t Growt h at 2 Days Not Available [facility] (Pre-Op Clinic) [address] [place], [address], 12/16/2023 07:13:14 12/14/19 24 12/14/2023 CULTU RE URINE W PRESU MP ID note Unles s other juan noted testi ng perfo rmed at: [facility] [address] [place] [address] Micah plascencia MD Not Available [facility] ([facility]-Op [facility]) [address] [place] [address] [place], [address], 12/16/2023 07:13:14 12/14/19 24 12/14/2023 urina lysis , dipst ick Leukocytes (reference range) small Not Available [facility] Care- Floor 2, [address] [facility] [address] [place] [address], [address], 12/14/2023 11:20:55 12/14/19 24 12/14/2023 urina lysis , dipst ick Nitrite (reference range:) negati ve Not Available [facility] Primary [facility]- Floor 2, [address] [facility] [address] [place] [address], [address], 12/14/2023 11:20:55 12/14/19 24 12/14/2023 urina lysis , dipst ick Urobilinogen (reference range) 0.2 Not Available [facility] Care- Floor 2, [address] [place] [address], [address], 12/14/2023 11:20:55 12/14/19 24 12/14/2023 urina lysis , dipst ick Protein (reference range) 30 Not Available [facility] Care- Floor 2, 606 [address] [facility] [address] [place] [address], [address], 12/14/2023 11:20:55 12/14/19 24 12/14/2023 urina lysis , dipst ick pH (reference range 5-8.5) 5.5 Not Available [facility]- Floor 2, [address], [place], [address], 12/14/2023 11:20:55 12/14/19 24 12/14/2023 urina lysis , dipst ick Blood (reference range:) negati ve Not Available [facility]- Floor 2, [address], [place], [address], 12/14/2023 11:20:55 12/14/19 24 12/14/2023 urina lysis , dipst ick Specific [place] (reference range) 1.030 Not Available [facility] Care- Floor 2, [address] [facility], [place], [address], 12/14/2023 11:20:55 12/14/19 24 12/14/2023 urina lysis , dipst ick Ketone (reference range) modera te Not Available [facility] Primary Care- Floor 2, [address] [facility], [place], [address], 12/14/2023 11:20:55 12/14/19 24 12/14/2023 urina lysis , dipst ick Bilirubin (reference range) small Not Available [facility] Care- Floor 2, [address] [facility], [place], [address], 12/14/2023 11:20:55 12/14/19 24 12/14/2023 urina lysis , dipst ick Glucose (reference range) negati ve Not Available [facility]- Floor 2, [address] [facility], [place], [address], 12/14/2023 11:20:55 12/14/19 24 12/14/2023 urina lysis , dipst ick Color (reference range: yellow-brown ) Brown Not Available [facility] Care- Floor 2, [address] [facility], [place], [address], 12/14/2023 11:20:55 11/20/19 24 11/20/2023 CT, abdom en + pelvi s, w/ contr ast No observ ation record ed. [address] Registration [address] [place] [address] [place], [address], 11/20/2023 22:38:19 01/12/20 24 01/12/2024 XR, chest No observ ation record ed. [address] (Registration ) [address] [place] [address] [place], [address], 01/12/2024 13:53:47 01/12/20 24 01/12/2024 US, obste tric No observ ation record ed. [address] (Registration ) [address] [place] [address] [place], [address], 01/12/2024 17:05:57 01/20/20 24 01/20/2024 elect rocar diogr am No observ ation record ed. [email or web address] [address] [facility], [place], [address], 01/21/2024 12:30:49 01/22/20 24 01/22/2024 imagi ng inter preta tion No observ ation record ed. [email or web address] [place] [id number], [place], [address], 01/25/2024 11:42:05 01/22/20 24 01/22/2024 imagi ng inter preta tion No observ ation record ed. [email or web address] [facility] [address], [place], [address], 01/25/2024 11:41:58 02/06/20 24 02/05/2024 elect rocar diogr am, routi ne ECG, 12 leads min No observ ation record ed. [place] [id number], [place], [address], 02/07/2024 14:15:54 04/27/20 24 04/27/2024 rhyth m strip , EKG* No observ ation record ed. [email or web address] [facility] [address], [place], [address], 04/28/2024 15:07:12 07/27/19 25 07/27/2024 imagi ng inter preta tion No observ ation record ed. [email or web address] [facility] [address], [place], [place], [address], 07/28/2024 10:45:22 07/27/19 25 07/27/2024 elect harris chew am No observ ation record ed. [email or web address] [facility] [address], [place], [address], 07/28/2024 10:45:06 Result Notes None recorded. Problems Name Problem SNOMED Code Status Onset Date Resolution Date Notes Provider Name and Address Organization Details Recorded Time Gilbert's syndrome 15264461 Active 2022 Not Available [facility] 4 05:51:07 Gallstone 927830864 Active 2022 Not Available [facility] 4 05:51:07 Fracture of hand 20510502 Active 2022 Had two pins placed of the fifth metatar petr. Not Available [facility] 4 05:51:07 Sore throat 145268882 Active 2022 Not Available [facility] 4 05:51:07 Hematochezia 565960143 Active 2022 Not Available [facility] 4 05:51:07 Diarrhea 45861636 Active 2022 Not Available [facility] 4 05:51:07 Nausea 175905786 Active 2022 Not Available [facility] 4 05:51:07 Generalized abdominal pain 864578323 Active 2022 Not Available [facility] 4 05:51:07 Problem Notes None recorded. Procedures Surgical History Date Name Laterality Status Provider Name and Address Organization Details Recorded Time 07/31/19 24 laparoscopic cholecystectomy completed Teresa KRISHNAN - [facility] [place] 08/03/2023 09:25:16 11/09/19 23 Date of Last Pap Smear completed Deb Clark [place] - [facility] [place] 05/28/2023 14:21:22 07/27/19 23 Other completed Shani KRISHNAN - [facility] [place] 08/20/2023 13:45:01 03/03/20 22 EGD/Endoscopy completed Kymberly Gar [place] - [facility] [place] 05/19/2023 08:29:18 07/27/19 02 ENT Surgery completed Shani KRISHNAN - [facility] [place] 08/20/2023 13:45:01 07/27/19 01 ENT Surgery completed Shani Nailso [place] - [facility] [place] 08/20/2023 13:45:01 Tonsillectomy completed Shani KRISHNAN - [facility] [place] 07/08/2023 12:32:45 Dilation and Curettage completed Deb KRISHNAN - [facility] [place] 01/26/2024 09:25:24 Imaging Results None recorded. Procedure Notes None recorded. Medical Equipment None Reported. Allergies Allergen ID Allergen Name Allergen Category Reaction Reaction Severity Criticality Documentation Date Start Date Code Code System Note Provider Name and Address Organization Details Recorded Time 665183 cinnamon preparati on food,medi cation other severe Not available 12/09/2023 02847 5 RxNorm throa t aurelio s Deb Clark null, [place] - [facility] [place] 4 09:50:32 60942 Augmentin medicatio n rash Not available Not available 09/18/2022 43837 2 RxNorm Anmol Pelayo null, [place] - [facility] [place] 3 12:59:17 08471 Product containin g penicilli n (product) medicatio n Not available Not available Not available 09/18/2022 57610 8001 SNOMED Anmol Pelayo null, [place] - [facility] - [place] [facility] [place] 3 12:59:25 Medications Name Sig Start Date [...] active Not Available Not Available Not Available prednisone 10 mg tablet TAKE 4 TABLETS BY MOUTH ONCE DAILY FOR 5 DAYS, THREE TABLETS ONCE DAILY FOR 5 DAYS, TWO TABLETS ONCE DAILY FOR 5 DAYS, ONE TABLET ONCE DAILY FOR 5 DAYS, THEN TAKE ONE-HALF TABLET ONCE DAILY FOR 5 DAYS active Not Available Not Available No t Available loperamide 2 mg capsule 03/22 completed [...] completed Not Available Not Available Not Available omeprazole 20 mg capsule,del ayed release TAKE ONE CAPSULE BY MOUTH EVERY DAY active Not Available Not Available No t Available diclofenac sodium 75 mg tablet,neena yed [...] Available Not Available methimazole 10 mg tablet TAKE ONE TABLET BY MOUTH TWICE DAILY active Not Available Not Available No t Available propranolol 20 mg tablet TAKE 1 AND 1/2 TABLET BY MOUTH THREE TIMES DAILY active Not Available Not Available No t Available bromphenira mine-pseudo ephedrine-D M 2 mg-30 mg-10 mg/5 mL oral syrup 09/22 completed Not Available Not Available Not Available ondansetron 4 mg disintegrat ing tablet DISSOLVE TWO TABLETS ON THE TONGUE EVERY EIGHT HOURS NEEDED FOR NAUSEA OR VOMITING active Not Available Not Available No t [...] Updated DateTime 4 162.56 cm 24.6 kg/m2 20672.1 5 g 98.2 [degF] 99 % 99 % 98 /min 110 mm[Hg] 80 mm[Hg] Francy SUMMERS [facility] [place] 4 15:41:55 Date Recorded Body height Body mass index (BMI) Body weight Body temperature Oxygen saturation Oxygen saturation in Arterial blood by Pulse oximetry Heart rate Systolic blood pressure Diastolic blood pressure Provider Name and Address Organization Details Last Updated DateTime 4 162.56 cm 23.6 kg/m2 91648.8 7 g 98.5 [degF] 97 % 97 % 88 /min 140 mm[Hg] 80 mm[Hg] Francy KRISHNAN MELINA [facility] [place] 4 10:46:22 Date Recorded Body height Body mass index (BMI) Body weight Body temperature Oxygen saturation Oxygen saturation in Arterial blood by Pulse oximetry Heart rate Systolic blood pressure Diastolic blood pressure Provider Name and Address Organization Details Last Updated DateTime 4 162.56 cm 20.8 kg/m2 83429.6 8 g 98.6 [degF] 99 % 99 % 100 /min 110 mm[Hg] 70 mm[Hg] Francy KRISHNAN MELINA [facility] [place] 4 08:35:15 Date Recorded Body height Body mass index (BMI) Body weight Body temperature Oxygen saturation Oxygen saturation in Arterial blood by Pulse oximetry Heart rate Systolic blood pressure Diastolic blood pressure Provider Name and Address Organization Details Last Updated DateTime 4 162.56 cm 20.4 kg/m2 40109.4 9 g 98.7 [degF] 100 % 100 % 76 /min 110 mm[Hg] 60 mm[Hg] Francy KRISHNAN MELINA [facility] [place] 4 08:35:40 Date Recorded Body height Body mass index (BMI) Body weight Body temperature Oxygen saturation Oxygen saturation in Arterial blood by Pulse oximetry Heart rate Systolic blood pressure Diastolic blood pressure Provider Name and Address Organization Details Last Updated DateTime 4 162.56 cm 20.8 kg/m2 72326.6 8 g 98.8 [degF] 99 % 99 % 98 /min 100 mm[Hg] 60 mm[Hg] Francy SUMMERS [facility] [place] 09:07:24 Social History Question Answer Notes LastModified by Organizat ion Details LastModified Time Tobacco Smoking Status Former Smoker Francy goodman, [place] SUMMERS [facility] [place] 03/17/2023 09:23:30 Do You Have An Advance Directive? No [email or web address] Information not available 05/28/2023 Are You Blind Or Do You Have Difficulty Seeing? No [email or web address] Information not available 05/28/2023 When Did You Quit Smoking? 1-5yearssinc [email or web address] te Information not available 08/13/2023 Are You Passively Exposed To Smoke? No [email or web address] Information not available 05/28/2023 How Many Years Have You Smoked Tobacco? 12 [email or web address] Information not available 03/17/2023 Sex: Female Functional Status Question Answer Note LastModified by Organizat ion Details LastModified Time Do you use any illicit or recreational drugs? No [email or web address] Information not available 03/17/2023 Do you or have you ever used any other forms of tobacco or nicotine? Yes Information not available 08/13/2023 What is your level of alcohol consumption? None [email or web address] Information not available 03/17/2023 Do you or have you ever used e-cigarettes or vape? Current user of electronic cigarettes Information not available 08/13/2023 What is your exercise level? Occasional Information not available 05/28/2023 Mental Status None recorded. Family History Relationship Description Onset Age of this Age Resolved Age Notes LastModified by Organization Details LastModified Time Father Family history of malignant neoplasm kidney cancer [email or web address] Not available 07/12/2024 08:20:21 Father Myocardial infarction 62 pt. added direct ly (04/28) Not available 08/20/2023 13:44:57 Brother Family history of Crohn's disease [email or web address] Not available 2023 08:20:21 Brother Autoimmune disease pt. added direct ly (04/28) [email or web address] Not available 04/28/2023 16:28:54 Mother Autoimmune disease pt. added direct ly (04/28) [email or web address] Not available 04/28/2023 16:28:41 Mother Disorder of thyroid gland [email or web address] Not available 2023 13:44:57 Mother Disease of liver [email or web address] Not available 2023 11:15:11 Sister Heart disease Not available 2023 13:44:57 Unspecified Relation Family history of stroke [email or web address] Not available 2023 08:20:21 Medical History Condition Response Coronary Artery Disease N None N Other Y Gout N Blood Diseases N Kidney Stones N Hyperthyroidism N Blood Transfusion N Breast Cancer N COPD N Depression N Lung Disease N Hypothyroidism N Defects or Inherited Disease N Developmental or Behavioral Disorders N Breast Problem N Difficulty Swallowing N Anesthesia Complications N Meniere's disease N Anxiety Disorder Y Muscle, Joint, or Bone Problems N Vision or Eye Problems N Arthritis N Polyps N Infertility N Cancer N Varicosities N Stroke N Endometriosis N Bladder or Kidney Problems N High Cholesterol N Liver Disease Y Fibromyalgia N Headaches N Kidney Disease N Allergies/Hayfever N Heart [...] Recorded Time IPV 2 completed Not Available [facility] 08/05/2023 05:51:08 MMR 2 completed Not Available [facility] 08/05/2023 05:51:08 COVID-19 vaccine, vector-nr, rS-Ad26, PF, 0.5 mL 07/29/202 1 completed Not Available [facility] 08/05/2023 05:51:08 Tdap 0 completed Not Available [facility] 08/05/2023 05:51:08 varicella 1 completed Not Available [facility] 08/05/2023 05:51:08 HPV, quadrivalent 1 completed Not Available [facility] 08/05/2023 05:51:08 Hep A, ped/adol, 2 dose 1 completed Not Available [facility] 08/05/2023 05:51:08 Hep A, ped/adol, 2 dose 0 completed Not Available [facility] 08/05/2023 05:51:08 DTaP, unspecified formulation 2 completed Not Available [facility] 08/05/2023 05:51:08 Past Encounters Encounter ID Performer Location Encounter Start Date Encounter Closed Date Diagnosis/Indication Diagnosis SNOMED-CT Code Diagnosis ICD10 Code Diagnosis Note [id number] Marizol Paez MD [facility] [place] [address] [facility] [place] [address] 09/18/2022 12:53:09 09/18/2022 13:34:47 Pain in throat 402565287 R07.0 Strep swab in the office today was negative. Suggest this is a viral issue and will take time to resolve. Nausea 572976017 R11.0 Likely due to her underlying illness. Son also recently diagnosed with a viral illness. She understand s the importance of pushing fluids. Gilbert's syndrome 82419 000 E80.4 Pityriasis versicolor 56 605483 B36.0 Suggested OTC lamisil cream. [id number] BOOKER OLIVARES [facility] Immediate Care- Floor 1, [address] [place] [address] 11/26/2022 12:14:40 11/26/2022 12:41:53 Nail deformity 600969551 L60.8 no obvious sign of fungal infection. Nail loss may be related to initial injury. Continue to monitor at home, follow up with any new or worsening symptoms. [id number] Cassie Jimenez [facility] Immediate Care- Floor 1, [address] [facility] [address] [place] [address] 01/21/2023 07:59:03 01/21/2023 08:28:49 Cough 52504927 R05.1 Generalize d aches and pains 12932865 R52 Exposure t o Influenzavirus 242432143 Z20.828 Nausea 207350906 R11.0 Viral syndrome 167543826 B34.9 [id number] Saskia Soriano APRN [facility] Immediate Care- Floor 1, [address] [facility] [address] [place] [address] 02/10/2023 15:16:39 02/10/2023 15:42:50 Sore throat 311428061 J02.9 We will contact with results of throat culture when available and treat if indicated. Increase fluid intake until better, Tylenol/Mo juan ramon as needed, salt water gargle twice a day. Follow up with any new or worsening symptoms. Discard toothbrush as we discussed. Exposure t o SARS-CoV-2 457576461 Z20.822 Continue with hand hygiene, social distancing and vaccines as recommende d by PCP. Viral syndrome 079925713 B34.9 Possibly HFMD, discussed supportive measures. [id number] Molly Bolton MD [facility] Primary Care- Floor 2, [address] [facility] [address] [place] [address] 03/17/2023 09:03:37 03/17/2023 10:09:55 Irritable bowel syndrome 87752191 K58.9 Continue zofran prn nausea. Referral to GI for futher work-up. 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 Continue meloxicam and tylenol. Referring to Ortho Spine as precaution . Follow-up in 6 weeks and prn [id number] Indu Decker NP [facility] [address] [place] [address] DR CHAVEZ Rosas [place] [id number] 05/19/2023 07:54:57 05/19/2023 16:07:23 Hematochezia 380899444 K92.1 6-7 month history hematochez ia, describes large amount at times. Recommend labs today. Recommend colonoscop y to further evaluate r/o colitis, internal hemorrhoid s, other. Pt is scheduled for Colon 06/25 @ 9:00 AM Diarrhea 56311700 R19.7 History of alternatin g constipati on diarrhea. Experienci ng worsening diarrhea over the past 2 weeks. Plan for x-ray abdomen KUB to rule out underlying stool burden. Recommend colonoscop y with random colon biopsies to rule out underlying colitis, other. Plan for labs today. Patient's brother with history of Crohn's. Nausea 238307295 R11.0 Daily episodes of nausea ongoing for several years. EGD reviewed 03/03/[address] Leslie appeared normal, pathology negative for H pylori or celiac. Recommend gallbladde r US to further evaluate. Generalize d abdominal pain 443822826 R10.84 Episodes of upper abdominal pain radiating down throughout her abdomen. Plan for gallbladde r ultrasound as above as well as labs. Recommend colonoscop y to further evaluate. No etiology identified on EGD from 02/2022. 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 Continue meloxicam (if makes to drowsy can take tylenol or ibuprofen instead, discussed taking NSAIDs with food so as not to upset her stomach). Continue amitriptyl line (discussed that it is ok for her to take 10-20 mg rather than 5 mg). Nausea 926888470 R11.0 Following with GI and has upcoming HIDA scan and colonoscop y scheduled. Continue zofran prn. [id number] Francy Su, DO [place] [facility] - [address], [address] [place] [address] 07/09/2023 13:46:06 07/09/2023 15:31:08 Chronic cholecystitis 05034898 K81.1 I do feel that she is [...] low-fat diet. Irritable bowel syndrome with diarrhea 945997635 K58.0 I do think she has irritable bowel syndrome with diarrhea we did discuss that laparoscop ic cholecyste ctomy will probably not take care of all of those symptoms. She understand s. 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 Suspect possible pityriasis alba vs. pityriasis versicolor . Will treat for both possibilit ies with combinatio n steroid-an tifungal cream (as planning to have abdominal surgery soon, suggested just treating her back at this time and waiting until wounds heal after surgery to treat her abdomen. Chronic cholecystitis 20 [id number] K81.1 Patient scheduled for cholecyste ctomy 07/24/23 Low back p ain co-occurrent with neuralgia of right sciatic nerve [id number] M54.41 She is now following with Orthopedic s and will do PT after she has her gallbladde r surgery. [id number] Saskia Soriano APRN [facility] Immediate Care- Floor 1, [address] [facility],[address] [place] [address] 07/24/2023 08:07:21 07/24/2023 08:47:22 Sore throat [id number] J02.9 Suspect viral etiology. Continue with symptom management , salt water gargles BID. Follow up if no improvemen t in 3-5 days or sooner with worsening symptoms. Cough 66099435 R05.1 Suspect that this is viral. Recommend [...] in 7-10 days, sooner with worsening symptoms. [id number] Francy Su DO [facility] - [address], [address] [place] [address] 08/13/2023 11:07:19 08/17/2023 14:08:53 Postoperative visit [id number] Z48.89 Status post laparoscop ic cholecyste ctomy she is doing well. We discussed that if her loose stools continue, I can give her cholestyra mine if needed. She is going to let me know. She should continue lifting restrictio ns for another couple of weeks. She is to let me know if she needs to see me again. [id number] Molly Bolton MD [facility] Primary Care- Floor 2, [address] [facility] [place] [address] 09/22/2023 14:35:17 09/22/2023 16:07:30 Generalized rash [id number] R21 Suspected pityriasis alba. Have treated with both topical steroids and antifungal s without resolution . Referring to dermatolog y for further evaluation . History of cholecystectomy [id number] Z90.49 Recovering well from recent cholecyste ctomy for chronic cholecysti tis. Low back p ain co-occurrent with neuralgia of right sciatic nerve [id number] 01141 M54.41 Following w/ spine surgeon Dr. Lobato who has ordered back braces and PT. Insomnia [id number] G47.0 0 Ok to use benadryl prn sleep. I have prescribed amitriptyl ine in past for her sciatica and said she might try this prn in place of the benadryl as it might also help with sleep. [id number] Molly Bolton MD [facility] Primary Care- Floor 2, [address] [place] [address] 12/14/2023 10:01:42 12/14/2023 12:08:18 Abnormal urinalysis [id number] R82.90 Hospital UA w positive LE and UA today in clinic with small LE. Given symptoms of abdominal cramping and ongoing diarrhea, will treat for possible UTI per below and send for culture Acute urin glenn tract infection 108226146 N39.0 Will start treatment with keflex as and follow-up urine culture and adjust antibiotic s prn Palpitations 26077873 R0 0.2 Stop metoprolol and start labetalol. Patient has upcoming cardiology appt. Cardiac testing including troponins and TTE have so far been reassuring . Holter monitor results pending. Nausea and vomiting 1693 1999 R11.2 Start doxylamine -pyridoxin e for likely related nausea. Nausea 106207077 R11.0 Discussed trying doxylamine first for nausea and if breakthrou gh nausea can use zofran prn (class B in , likely safe) test positive 294820751 Z32.01 Patient has follow-up US later this week (elevated HCG but US has yet to confirm IUP) [id number] Molly Bolton MD [facility] Primary Care- Floor 2, [address] [facility] [address] [place] [address] 02/02/2024 08:22:33 02/02/2024 09:24:10 Impaired mobility 52300354 Z74.09 Due to her POTS (becomes lightheade [...] as well. Postural o rthostatic tachycardia syndrome [id number] G90.A Receiving periodic iv fluid injections ordered by OB and following with cardiology Tachycardia 5528943 R00. 0 Lyndon to be 2/2 to dehydratio n and POTS. Currently wearing holter monitor. Following with cardiology . Continue metoprolol . Hyperemesi s gravidarum 31952633 O21.0 Continue zofran. Following with OB Second tri mester 76334595 Z34.92 Following with OB. Anxiety 53341876 F41.9 Continue buspirone and hydroxyzin e prn. [id number] Molly Bolton MD [facility] Primary Care- Floor 2, [address] [facility] [place], [place] [address] 03/22/2024 08:25:27 03/23/2024 07:20:01 Anxiety disorder 099156007 F41.9 Continue buspirone. Collected gene sight testing today to help guide medication management (with plan to forward to her provider when establishe s). Referring to for medication management and counseling . Postural o rthostatic tachycardia syndrome 172224073 G90.A Receiving periodic iv fluid infusions ordered by OB and following with cardiology Anemia 065388892 D64.9 Iv iron infusions being considered by her OB Hematochezia 982788747 K 92.1 Following with GI. Scopes being post-poned until after she delivers. [id number] FLAVIA KIRBYt ic Intervent ions at [facility] [address] [place] [address] 05/11/2024 10:46:21 05/18/2024 10:10:23 [id number] Molly Bolton MD [facility] Primary Care- Floor 2, [address] [facility],[address] [place] [address] 07/12/2024 08:20:01 07/13/2024 07:24:42 Postural orthostatic tachycardia syndrome 435830053 G90.A Continues to have issues with standing, [...] Continues to follow with cardiology . Anxiety 04729221 F41.9 Continues on buspirone. 82349796 Z33.1 Following w/ [facility] /MFM with plan for upcoming induction due to her POTS. [id number] FLAVIA KIRBY Therapeut ic Intervent ions at [address] [place] [address] 06/14/2024 10:38:56 06/14/2024 12:25:13 [id number] FLAVIA KIRBY Therapeut ic Intervent ions at [address] [place] [address] 09/05/2024 08:00:30 09/05/2024 10:08:29 [id number] FLAVIA KIRBY Therapeut ic Intervent ions at [address] [place] [address] 10/04/2024 09:53:14 10/04/2024 11:21:35 [id number] FLAVIA KIRBY Therapeut ic Intervent ions at [address] [place] [address] 11/09/2024 11:15:42 11/15/2024 08:27:33 [id number] FLAVIA KIRBY Therapeut ic Intervent ions at [address] [place] [address] 12/13/2024 09:47:41 12/15/2024 15:09:13 Health Concerns Section Related Observation LastModified by Organization Detai ls LastModified Time None Recorded Concern Status LastModified by Organization Details LastModified Time None Recorded Advance Directives Directive N: Payers Insurance Date Sequence Insurance Name Policy Number Policy Zaidi Covered Member ID Zaidi Member ID Guarantor Name 03/23/2024 1 [facility] (PPO) [id number] Francy Delarosa [id number] Francy Miller [facility] 02/13/2024 [facility] Unknown Francy Miller [facility] 01/12/2025 1 [employer] (MEDICAID HMO) Francy Miller [facility] [id number] Francy Miller [facility] 04/17/2023 2 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 Francy Delarosa [...] score of 0 today Molly Bolton MD [address] [place] [address], [address], [place], [address], [facility] - [place] & [place] 09/22/2023 18:47:04 4 text/htm pj Delarosa is a 23 yo female with depression, IBS-D, Gilbert's syndrome, chronic low back pain with sciatica, cholecystitis s/p recent cholecystectomy who presents for ER follow-ups. I personally reviewed [facility] ER notes from 12/04/23 and 12/10/23 #PalpitationsPatient seen the above dates for palpitations at [facility] seen at [facility] in between these two ER visitsHRs up to 130s at first ER visit with otherwise normal vitalsShe was given 1L fluid bolus and phenergan at first ER visitAt the [facility] visit in between had unremarkable cardiac echo and negative CTA chestAt 2nd [facility] ER visit HRs up to 120s with otherwise normal vitalsWas given 1L fluid bolus, po metoprolol, and iv zofranReferral was made to Cardiology Dr. Virgen and outpatient cardiac monitoringLabs from 12/04/23 notable for CMP with slightly low K of 3.2, negative troponin, BHCG of 1193, negative UDS, unremarkable CBC, bland UALabs from 12/10/23 notable for normal [place], [place] [address], negative troponin, CMP with slightly elevated tbili [...] inSays she will be able to see psych np in [facility] sooner than she can get into cardiology here Molly Bolton MD [address] [place] [address], [address], [place], [address], [facility] & [place] 12/14/2023 21:40:31 4 text/htm pj Delarosa is a 23 yo female with anxiety and depression, IBS-D, Gilbert's syndrome, chronic low back pain with sciatica, who present for hospital and ER follow-ups. She is accompanied to clinic by her husbandPatient [facility] and also went to ER 01/31/24 for elevated heart rate and n/v.Labs overall unremarkable (negative troponin, CMP without significant abnormalities, normal CBC 01/24/24 at [facility] and unremarkable CMP, CBC, lactic acid, lipase, and UA 01/31/24 at )Had has 2 OB US at 01/23/24 12 weeks gestation and had bedside US on 01/31/24 showing IUP with FHR of 152Was discharged on zofran, buspirone, hydroxyzine and metoprolol from [facility], felt to be having sinus tachycardia, possible POTs, and panic attacksFelt to have sinus tachycardia and dehydration at ER and given LR and zofran and prescribed pepcid at dischargeUK note mentioned patient currently wearing Holter monitor and hadShe says she continues to have some palpitations and dizziness with standingSays she is bed bound and wheelchair bound (she says that her psych np made these specifications)Currently off workHaving a lot of nausea as well as diarrheaShe is getting banana bag infusions three times per week (ordered by her OB in [place]) and has been referred to higher level teaching assistant at [facility] wearing Holter monitorReports HRs up to 170s-180s and sometimes looking like SVT on monitorsOn 25 mg metoprolol dailyShe is following with Dr. [facility] in [place] and has follow-up with them todaySays Holter monitor is to stay on until next weekSays yesterday was first day she went without a spell - no palpitations, no hand or feet numbness or tinglingSays current working diagnosis is POTSTaking buspirone and hydroxyzine prnSays not taking pepcid that [place] [facility] have a cough productive of some yellow [...] OB to fill out Molly Bolton MD [address] [place] [address], [address], [place], [address], [place] - [facility] - [place] & [place] 02/02/2024 12:02:53 4 text/htm pj Delarosa is a 23 yo female with anxiety and depression, IBS-D, Gilbert's syndrome, chronic low back pain with sciatica, current , POTs who presents for follow-up. She is accompanied by a friend who drove her and assisted her with getting in to clinic Patient is seated in a wheelchair Since last visit 02/02/24as again been hospitalized (says she got out [...] drink and certain foodsContinues to follow with psych np who has referred her to immunology (she is hoping to be tested for mcas)Says she has not heard from in [place] that I have referred her to (she [...] some with the POTs Molly Bolton MD [address] [place] [address], [address], [place], [address], [facility] - [facility] & [place] 03/22/2024 17:52:00 4 text/htm pj Delarosa is a 24 yo female with anxiety and depression, IBS-D, Gilbert's syndrome, chronic low back pain with sciatica, current (will be induced later this week), POTs who presents with paperwork. She is accompanied to clinic by her today #PaperworkPaperwork is for waiver for her lawyerAlready getting help at [...] with immunology, cardiology, MFM, and GI at [facility] time I saw patient in person was 03/22/24 and she had been diagnosed with POTS and was periodically receiving iv fluids Went over paperwork in clinic todayIt is unclear if she needs an doc to do this rather than me [...] on buspirone (says currently being prescribed by [facility] and hopes that I will take over the prescription after she delivers) Molly Bolton MD [address] [place] [address], [address], [place], [address], [facility] & [place] 07/12/2024 12:23:22 OBGyn Episode No OBEpisode recorded.
--- OUTSIDE RECORDS SUMMARY | 2025-01-13 14:34 | XMS_ITS | Encounter Summary ---
Author Organization Healthcare Address [address] [place] [address] Care Team Providers Care Branner Machine Tender Name Role Phone Angela Oleary RN Unavailable Unavailable Rey Wyatt MD Primary Care Provider [phone] Encounter Details Date Type Department Care Team (Late st Contact Info) Description 12/09/2024 Orders Only [facility] Medicine Specialties [address], [address] [place] [address] Silverio Tam PA [address] [place] [address] Social History Tobacco Use Types [...] often do you attend chur ch or pentecostalism services? Never 02/22/2024 Do you belong to [...] Recorded Patient Health Questionnaire-2 Score 0 11/16/2024 [facility] - Occupational Stress Questionnaire Answer [...] in a penitentiary (including now)? No 02/09/2024 [place] Depression Scale Answer Date Recorded [place] Depression Scale Total 6 08/08/2024 The thought [...] drink first t casi in the morning (EYE-CAD CAM PROGRAMMER) to steady your nerves or to get rid of a hangover? 0 07/16/2024 CAGE Questionnaire Score 0 024 Utilities Answer Date Recorded In the past 12 months has th e [employer], gas, oil, or water company threatened to [...] EDT Appointment [facility] [address] [place] [address] Cody Barnett MD [address] [place] [address] 02/10/2025 10:00 AM EDT Office Visit [facility] Endocrinology [address] [place] [address] Rachel Khan PA [address] [facility] [address] [place] [address] 02/16/2025 1:20 PM EDT Office Visit [facility] [place] [address] [facility], [address] [place] [address] Courtney Torres MD [address] [facility] [address] [place] [address] 03/15/2025 3:[address] [facility] [address] [place] [address] Kendy Sanchez APRN [address] [place] [address] 04/17/2025 2:00 PM EDT Office Visit [facility] Medicine Specialties [address] [place] [address] Silverio Tam PA [address] [place] [address] documented as of this encounter [...] documented as of this encounter Care Teams Branner Machine Tender Relationship Specialty Start Date End Date Rey Wyatt MD [address] [place] [address] PCP - General 11/16/24 Angela Oleary, RN [facility] Registered Nurse Cardiology 02/17/24 documented as of this encounter
--- OUTSIDE RECORDS SUMMARY | 2025-01-13 14:34 | XMS_ITS | Encounter Summary ---
Author Organization Healthcare Address [address] [place] [address] Care Team Providers Care Farm Worker Name Role Phone Angela Oleary RN Unavailable Unavailable Rey Wyatt MD Primary Care Provider [phone] Encounter Details Date Type Department Care Team [...] week 02/22/2024 How often do you attend [facility] or faith services? Never 02/22/2024 Do you belong to [...] Recorded Patient Health Questionnaire-2 Score 0 11/16/2024 [facility] of Occupat [...] in a mcc (including now)? No 02/09/2024 [place] Depression Scale Answer Date Recorded [place] Depression Scale Total 6 08/08/2024 The thought [...] drink first t casi in the morning (EYE-PLASMA CENTER TECHNICIAN) to steady your nerves or to get [...] Appointment [facility] [address] [place] [address] Cody Barnett MD [address] [place] [address] 02/10/2025 10:00 AM EDT [facility] [address] [place] [address] Rachel Khan PA [address] [place] [address] 02/16/2025 1:20 PM EDT Office Visit [facility] [place] [address], [address] [place] [address] Courtney Torres MD [address] [place] [address] 03/15/2025 3:[address] [facility] [address] [place] [address] Kendy Sanchez, MEDICAL RECORDS CLERK [address] [place] [address] 04/17/2025 2:00 PM EDT Office Visit [facility] Medicine Specialties [address] [place] [address] Silverio Tam PA [address] [place] [address] documented as of this encounter [...] documented as of this encounter Care Teams Farm Worker Relationship Specialty Start Date End Date Rey Wyatt MD [address] [place] [address] PCP - General 11/16/24 Angela Oleary, RN [facility] Registered Nurse Cardiology 02/17/24 documented as of this encounter
--- OUTSIDE RECORDS SUMMARY | 2025-01-13 14:35 | XMS_ITS | Encounter Summary ---
Author Organization Healthcare Address [address] [place] [address] Care Team Providers Care White Goods Appliance Tech Name Role Phone Angela Oleary RN Unavailable Unavailable Rey Wyatt MD Primary Care Provider [phone] Encounter Details Date Type Department Care Team (Late st Contact Info) Description 11/16/2024 Telephone [facility] [address] [place] [address] Kendy Sanchez, HOME HEALTH PROVIDER [address] [place] [address] Social History Tobacco Use Types [...] any clubs o r organizations such as yazidism groups, unions, fraternal or athletic groups, or [...] Recorded Patient Health Questionnaire-2 Score 0 11/16/2024 [facility] - Occupational Stress Questionnaire Answer [...] in a intermediate (including now)? No 02/09/2024 [place] Depression Scale Answer Date Recorded [place] Depression Scale Total 6 08/08/2024 The thought [...] drink first t casi in the morning (EYE-EMERY GRINDER) to steady your nerves or to get [...] EDT Appointment [facility] [address] [place] [address] Cody Barnett MD [address] [facility] [address] [place] [address] 02/10/2025 10:00 AM EDT Office Visit [facility] Endocrinology [address] [place] [address] Rachel Khan PA [address] [facility] [address] [place] [address] 02/16/2025 1:20 PM EDT Office Visit [facility] [place] [address] [facility], [address] [place] [address] Courtney Torres MD [address] [facility] [address] [place] [address] 03/15/2025 3:30 PM EDT Consult [facility] [address] [place] [address] Kendy Sanchez APRN [address] [facility] [address] [place] [address] 04/17/2025 2:00 PM EDT Office Visit [facility] [address] [place] [address] Silverio Tam PA [address] [facility] [address] [place] [address] documented as of this encounter [...] documented as of this encounter Care Teams White Goods Appliance Tech Relationship Specialty Start Date End Date Rey Wyatt MD [address] [place] [address] PCP - General 11/16/24 Angela Oleary, RN [facility] Registered Nurse Cardiology 02/17/24 documented as of this encounter
--- OUTSIDE RECORDS SUMMARY | 2025-01-13 14:35 | XMS_ITS | Encounter Summary ---
Author Organization Healthcare Address [address] [id number] Care Team Providers Care Venture Capital Analyst Name Role Phone Molly Louis MD Primary Care Provider [phone] Angela Oleary RN Unavailable Unavailable Encounter Details Date Type Department Care Team (Late st Contact Info) Description 11/14/2024 Orders Only [facility] Endocrinology [address] [phone] Abundio Kyle MBBS [address] [place], [place] [id number] Thyrotoxicosis with Tricia thyroiditis (Primary Dx) Social [...] any clubs o r organizations such as restorationist groups, unions, fraternal or athletic groups, or [...] Recorded Patient Health Questionnaire-2 Score 2 09/06/2024 [facility] - Occupational Stress Questionnaire Answer Date [...] in a alf (including now)? No 02/09/2024 [place] Depression Scale Answer Date Recorded [place] Depression Scale Total 6 08/08/2024 The thought [...] drink first t casi in the morning (EYE-TWISTING OPERATOR) to steady your nerves or to [...] EDT Appointment [facility] [address] [place] [address] Cody Barnett MD [address] [place] [address] 02/10/2025 10:00 AM EDT Office Visit [facility] Endocrinology [address] [place] [phone] Rachel Khan PA [address] [place] [address] 02/16/2025 1:20 PM EDT Office Visit [facility] [place] [address] [place] [address] Courtney Torres MD [address] [place] [address] 03/15/2025 3:30 PM EDT Consult [facility] [address], 1st [place] [address] Kendy Sanchez, TRISTAN [address] [place] [address] 04/17/2025 2:00 PM EDT Office Visit [facility] Medicine Specialties [address], 2nd [place] [address] Silverio Tam PA [address] [place] [address] documented as of this encounter Goals Goal Patient Goal Type Associated Problems Recent Progress Patient-Stated? Author Delayed Delivery Care Plan CPM S22 PP LABOR (OBSTETRICS) No Open Scheduling, Background documented as of this encounter Results * T4, free (12/15/2024 3:29 PM EDT) Free T4, Plasma 1.7 0.8 - 1.7 ng/dL 12/15/2024 4:54 PM EDT [facility] Blood Venous blood specimen / Unknown Venipuncture / Unknown 12/15/2024 3:29 PM EDT 12/15/2024 3:30 PM EDT Narrative [facility] - 12/15/2024 4:54 PM EDT Free T4 Trimester Specific Ranges 1st Trimester 0.9 - 1.50 ng/dL 2nd Trimester 0.7 - 1.40 ng/dL 3rd Trimester 0.7 - 1.24 ng/dL us Roland Wooten MD LAB BLOOD ORDERABLES Final Resu lt Performing Organization Address [facility] Co de Phone Number [facility] [address] [place] [address] * (ABNORMAL) TSH (12/15/2024 3:29 PM EDT) Thyroid Stimulating Hormone, Plasma <0.01(L) 0.40 - 4.20 uIU/mL 12/15/2024 4:54 PM EDT [facility] Blood Venous blood specimen / Unknown Venipuncture / Unknown 12/15/2024 3:29 PM EDT 12/15/2024 3:30 PM EDT Narrative [facility] - 12/15/2024 4:54 PM EDT Trimester Specific Ranges TSH ( IU/mL) 1st Trimester 0.1 - 3.0 2nd Trimester 0.19 - 4.06 3rd Trimester 0.3 - 3.7 us Roland Wooten MD LAB BLOOD ORDERABLES Final Resu lt Performing Organization Address [facility] Co de Phone Number [facility] [address] [place] [address] documented in this encounter Visit Diagnoses Diagnosis [...] documented as of this encounter Care Teams Venture Capital Analyst Relationship Specialty Start Date End Date Molly Louis MD [address] [place], [place] [id number] PCP - General Family Medicine 02/09/24 11/15/24 Angela Oleary, RN [facility] Registered Nurse Cardiology 02/17/24 documented as of this encounter
--- OUTSIDE RECORDS SUMMARY | 2025-01-13 14:35 | XMS_ITS | Encounter Summary ---
Author Organization Healthcare Address [address] [place] [address] Care Team Providers Care Moto Mix Operator Name Role Phone Angela Oleary RN Unavailable Unavailable Rey Wyatt MD Primary Care Provider [phone] Encounter Details Date Type Department Care Team [...] week 02/22/2024 How often do you attend [facility] or nondenominational services? Never 02/22/2024 Do [...] Recorded Patient Health Questionnaire-2 Score 0 11/16/2024 [facility]at ional Health - [...] in a longterm (including now)? No 02/09/2024 [place] Depression Scale Answer Date Recorded [place] Depression Scale Total 6 08/08/2024 The thought [...] drink first t casi in the morning (EYE-TECHNOLOGY STRATEGIST) to steady your nerves or to get rid of a hangover? 0 07/16/2024 CAGE Questionnaire Score 0 024 Utilities Answer Date Recorded In the past 12 months has th e [employer], gas, oil, or water company threatened to [...] Appointment [facility] Endoscopy [address] [place] [address] Cody Barnett MD [address] [place] [address] 02/10/2025 10:00 AM EDT [facility] [address] [place] [address] Rachel Khan PA [address] [place] [address] 02/16/2025 1:20 PM EDT Office Visit [facility] [place] [address], [address] [place] [address] Courtney Torres MD [address] [place] [address] 03/15/2025 3:30 PM EDT Consult [facility] [address], 1st [place] [address] Kendy Sanchez APRN [address] [place] [address] 04/17/2025 2:00 PM EDT Office Visit [facility] Medicine Specialties [address], 2nd [place] [address] Silverio Tam PA [address] [place] [address] documented as of this encounter [...] documented as of this encounter Care Teams Moto Mix Operator Relationship Specialty Start Date End Date Rey Wyatt MD [address] [place] [address] PCP - General 11/16/24 Angela Oleary, RN [facility] Registered Nurse Cardiology 02/17/24 documented as of this encounter
--- OUTSIDE RECORDS SUMMARY | 2025-01-13 14:35 | XMS_ITS | Encounter Summary ---
Author Organization Healthcare Address [address] [place] [address] Care Team Providers Care Rotary Saw Operator Name Role Phone Molly Louis MD Primary Care Provider [phone] Angela Oleary RN Unavailable Unavailable Rey Wyatt MD Primary Care Provider [phone] Encounter Details Date Type Department Care Team (Late st Contact Info) Description 10/21/2024 Telephone [facility] [place] [address] [place] [address] None, None [address] [place], [place] [id number] Social History Tobacco Use Types Packs/Day Years [...] [facility]at [facility] - Occupational Stress Questionnaire Answer Date [...] a senior living (including now)? No 02/09/2024 [place] Depression Scale Answer Date Recorded [place] Depression Scale Total 6 08/08/2024 The thought [...] drink first t casi in the morning (EYE-AZURE ARCHITECT) to steady your nerves or to [...] television Not at all 11/16/2024 3:00 PM Angelal Hillman Moving or speaking so slowly that [...] EDT Clinical Concern/Question Reason for Call: Per [facility], patient needs hospital discharge follow up for POTS, tachycardia and chest? Best contact number: Other: [phone] Optimal time of day to reach caller: ANYTIME Additional comments/information from caller: None Note: Please do not reply to this message. Follow-up communication and further actions as a result of this message need to be communicated with the patient directly, if the patient is not active onMyChart. If the patient is active on MyChart, they will receive notification of the communication/outcome via [employer]Gremlin[employer]. documented in this encounter Plan of Treatment Upcoming Encounters Date Type Department Care Team (Late st Contact Info) Description 01/17/2025 7:00 AM EDT Appointment [facility] Endoscopy [address] [place] [address] Cody Barnett MD [address] [place] [address] 02/10/2025 10:00 AM EDT Office [facility] Endocrinology [address] [place] [address] Rachel Khan PA [address] [place] [address] 02/16/2025 1:20 PM EDT Office Visit [facility] [place] [address], [address] [place] [address] Courtney Torres MD [address] [place] [address] 03/15/2025 3:30 PM EDT Consult [facility] [address], 1st [place] [address] Kendy Sanchez APRN [address] [place] [address] 04/17/2025 2:00 PM EDT Office Visit [facility] Medicine Specialties [address], 2nd [place] [address] Silverio Tam PA [address] [place] [address] documented as of this encounter [...] documented as of this encounter Care Teams Rotary Saw Operator Relationship Specialty Start Date End Date Molly Louis MD [address] [place] [address] [place] [address] PCP - General Family Medicine 02/09/24 11/15/24 [place] [address] [place] [address] [place] [address] PCP - General 11/16/24 Angela Oleary, RN [facility] Registered Nurse Cardiology 02/17/24 documented as of this encounter
--- OUTSIDE RECORDS SUMMARY | 2025-01-13 14:35 | XMS_ITS | Encounter Summary ---
Author Organization Healthcare Address [address] [place] [address] Care Team Providers Care Cafeteria Operator Name Role Phone Molly Louis MD Primary Care Provider [phone] Angela Oleary RN Unavailable Unavailable Rey Wyatt MD Primary Care Provider [phone] Encounter Details Date Type Department Care Team (Late st Contact Info) Description 10/21/2024 [facility]phone [facility] [address] [place] [address] Roland Wooten MD [address] [facility] [address] [place] [address] Social History Tobacco Use Types [...] How often do you attend chur or latter-day services? Never 02/22/2024 Do you belong to [...] Score 0 11/16/2024 [facility] of Occupat ional Health - [...] a senior care (including now)? No 02/09/2024 [place] Depression Scale Answer Date Recorded [place] Depression Scale Total 6 08/08/2024 The thought [...] drink first t casi in the morning (EYE-PADDING GLUER) to steady your nerves or to get [...] patient, has still not been discharged from [facility], advised that Dr Wooten could call this afternoon and requested recent lab results be faxed to [phone]. * Telephone Encounter - Cindy Mckeon - 10/21/2024 9:19 AM EDT Patient Phone Message Reason for Call: Pt called back to say she is being discharged from the hospital today. She asks for a call back aiden. Best contact number and optimal time of day to reach caller: [phone] Note: Please do not reply to this [...] Reason for Call: Pt is in-patient at [facility] due to a Thyroid related emergency. Pt doesn't think she will be discharged in time for her 10:40 apt today so the apt was rescheduled. Pt said she really needs to be seen and she is worried about going over the weekend without consulting with Dr Wooten. Pls advise. Best contact number: [phone] (mobile) Optimal time of day to reach [...] EDT Appointment [facility] S Endoscopy [address] [place] [address] Cody Barnett MD [address] [place] [address] 02/10/2025 10:00 AM EDT Office Visit [facility] Endocrinology [address] [place] [address] Rachel Khan PA [address] [facility] [address] [place] [address] 02/16/2025 1:20 PM EDT Office Visit [facility] [place] [address] [place] [address] Courtney Torres MD [address] [place] [address] 03/15/2025 3:30 PM EDT Consult [place] [facility] [address], 1st [place] [address] Kendy Sanchez APRN [address] [place] [address] 04/17/2025 2:00 PM EDT Office Visit [facility] Medicine Specialties [address], 2nd [place] [address] Silverio Tam PA [address] [place] [address] documented as of this encounter [...] documented as of this encounter Care Teams Cafeteria Operator Relationship Specialty Start Date End Date Molly Louis MD [address] [place] [address] PCP - General Family Medicine 02/09/24 11/15/24 [place] [address] [place] [address] [address] [place] [address] PCP - General 11/16/24 Angela Oleary, RN [facility] Registered Nurse Cardiology 02/17/24 documented as of this encounter
--- OUTSIDE RECORDS SUMMARY | 2025-01-13 14:35 | XMS_ITS | Encounter Summary ---
Author Organization Healthcare Address [address] [place] [address] Care Team Providers Care Mba Internship Name Role Phone Angela Oleary RN Unavailable Unavailable Rey Wyatt MD Primary Care Provider [phone] Encounter Details Date Type Department Care Team [...] week 02/22/2024 How often do you attend [facility] or sikh services? Never 02/22/2024 Do you belong to [...] Patient Health Questionnaire-2 Score 0 12/15/2024 [facility] of Occupat ional Health - [...] in a penitentiary (including now)? No 02/09/2024 [place] Depression Scale Answer Date Recorded [place] Depression Scale Total 6 08/08/2024 The thought [...] first t casi in the morning (EYE-PRODUCTION FOREMAN) to steady your nerves or to get rid of a hangover? 0 07/16/2024 CAGE Questionnaire Score 0 024 Utilities Answer Date Recorded In the past 12 months has th e [employer], gas, oil, or water company threatened to [...] Several days 12/15/2024 2: 22 PM EDT Kingsely Alvarado Feeling bad about yourself - or [...] EDT Appointment [facility] S Endoscopy [address] [place] [address] Cody Barnett MD [address] [place] [address] 02/10/2025 10:00 AM EDT Office Visit [facility] Endocrinology [address] [place] [address] Rachel Khan PA [address] [facility] [address] [place] [address] 02/16/2025 1:20 PM EDT Office Visit [facility] [place] [address] [place] [address] Courtney Torres MD [address] [place] [address] 03/15/2025 3:30 PM EDT Consult [facility] [address], 1st [place] [address] Kendy Sanchez APRN [address] [place] [address] 04/17/2025 2:00 PM EDT Office Visit [facility] Medicine Specialties [address], 2nd [place] [address] Silverio Tam PA [address] [place] [address] documented as of this encounter [...] documented as of this encounter Care Teams Mba Internship Relationship Specialty Start Date End Date Rey Wyatt MD [address] [place] [address] PCP - General 11/16/24 Angela Oleary, RN [facility] Registered Nurse Cardiology 02/17/24 documented as of this encounter
--- OUTSIDE RECORDS SUMMARY | 2025-01-13 14:35 | XMS_ITS | Encounter Summary ---
Author Organization Healthcare Address [address] [place] [address] Care Team Providers Care Anesthetic Assistant Name Role Phone Angela Oleary RN Unavailable Unavailable Rey Wyatt MD Primary Care Provider [phone] Encounter Details Date Type Department Care Team [...] week 02/22/2024 How often do you attend [facility] or druze services? Never 02/22/2024 Do you [...] Recorded Patient Health Questionnaire-2 Score 0 11/16/2024 [facility] of Occupat ional Health - [...] place to sleep or slept in a nursing home (including now)? No 02/09/2024 [place] Depression Scale Answer Date Recorded [place] Depression Scale Total 6 08/08/2024 The thought [...] drink first t casi in the morning (EYE-POLICE COMMUNICATIONS DISPATCHER) to steady your nerves or to get rid of a hangover? 0 07/16/2024 CAGE Questionnaire Score 0 024 Utilities Answer Date Recorded In the past 12 months has th e [employer], gas, oil, or water company threatened to [...] EDT Appointment [facility] S Endoscopy [address] [place] [address] Cody Barnett MD [address] [place] [address] 02/10/2025 10:00 AM EDT Office Visit [facility] Endocrinology [address] [place] [address] Rachel Khan PA [address] [facility] [address] [place] [address] 02/16/2025 1:20 PM EDT Office Visit [facility] [place] [address] [facility], [address] [place] [address] Courtney Torres MD [address] [facility] [address] [place] [address] 03/15/2025 3:30 PM EDT Consult [facility] [address], 1st [place] [address] Kendy Sanchez APRN [address] [place] [address] 04/17/2025 2:00 PM EDT Office Visit [facility] Medicine Specialties [address], 2nd [place] [address] Silverio Tam PA [address] [facility] [address] [place] [address] documented as of this encounter Goals Goal [...] documented as of this encounter Care Teams Anesthetic Assistant Relationship Specialty Start Date End Date Rey Wyatt MD [address] [facility] [address] [place] [address] PCP - General 11/16/24 Angela Oleary, RN [facility] Registered Nurse Cardiology 02/17/24 documented as of this encounter
--- OUTSIDE RECORDS SUMMARY | 2025-01-13 14:36 | XMS_ITS | Encounter Summary ---
Author Organization Healthcare Address [address] [place] [address] Care Team Providers Care Emergency Medical Technician/Driver Name Role Phone Angela Oleary RN Unavailable Unavailable Rey Wyatt MD Primary Care Provider Encounter Details Date Type Department Care Team (Late st Contact Info) Description 12/20/2024 Results Follow-Up [facility] Medicine Specialties [address], [address] [place] [address] Silverio Tam PA [address] [place] [address] Social History Tobacco Use Types [...] Questionnaire-2 Score 0 12/15/2024 [facility] - Occupational Stress Questionnaire [...] in a mcc (including now)? No 02/09/2024 [place] Depression Scale Answer Date Recorded [place] Depression Scale Total 6 08/08/2024 The thought [...] drink first t casi in the morning (EYE-INSPECTOR FIREARMS) to steady your nerves or to get [...] EDT Appointment P[facility] S Endoscopy [address] [place] [address] Cody Barnett MD [address] [facility] [address] [place] [address] 02/10/2025 10:00 AM EDT Office Visit [facility] Endocrinology [address] [place] [address] Rachel Khan PA [address] [facility] [address] [place] [address] 02/16/2025 1:20 PM EDT Office Visit [facility] [place] [address] [facility], [address] [place] [address] Courtney Torres MD [address] [facility] [address] [place] [address] 03/15/2025 3:30 PM EDT Consult [facility] [address], 1[address] [place] [address] Kendy Sanchez APRN [address] [facility] [address] [place] [address] 04/17/2025 2:00 PM EDT Office Visit [facility] Medicine Specialties [address], [address] [place] [address] Silverio Tam PA [address] [facility] [address] [place] [address] documented as of this encounter [...] documented as of this encounter Care Teams Emergency Medical Technician/Driver Relationship Specialty Start Date End Date Rey Wyatt MD [address] [place] [address] PCP - General 11/16/24 Angela Oleary, RN [facility] Registered Nurse Cardiology 02/17/24 documented as of this encounter
--- OUTSIDE RECORDS SUMMARY | 2025-01-13 14:36 | XMS_ITS | Encounter Summary ---
Author Organization [facility] Address [address] [place] [address] Care Team Providers Care Security Checker Name Role Phone Angela Oleary RN Unavailable Unavailable Rey Wyatt MD Primary Care Provider [phone] Reason for Referral * Imaging (Routine) - Authorized Specialty Diagnoses / Procedures Referred By Mili joe Referred To Contact Gastroenterology Diagnoses Abdominal pain, epigastric Diarrhea, unspecified type Weight loss Hematochezia Procedures Capsule Endoscopy Silverio Tam PA [address] [facility] [address] [place] [address] Phone: tel: fax: Referral ID Status Reason Start Date Expiration Date Visits Requested Visits Authorized [id number] Authorized Specialty Services Required 12/28/2024 06/29/2026 1 1 Encounter Details Date Type Department Care Team (Late st Contact Info) Description 12/28/2024 Orders Only [facility] Medicine Specialties [address], [address]nd [place] [address] Silverio Tam PA [address] [facility] [address] [place] [address] Abdominal pain, epigastric (Primary Dx); [...] often do you attend chur ch or sabianist services? Never 02/22/2024 Do you belong to [...] Recorded Patient Health Questionnaire-2 Score 0 12/15/2024 [facility] of Occupat ional Health - Occupational [...] in a longterm (including now)? No 02/09/2024 [place] Depression Scale Answer Date Recorded [place] Depression Scale Total 6 08/08/2024 The [...] drink first t casi in the morning (EYE-TYPE CASTING MACHINE OPERATOR) to steady your nerves or to get rid of a hangover? 0 07/16/2024 CAGE Questionnaire Score 0 024 Utilities Answer Date Recorded In the past 12 months has th e [employer], gas, oil, or water company threatened to [...] EDT Appointment [facility] S Endoscopy [address] [place] [address] Cody Barnett MD [address] [place] [address] 02/10/2025 10:00 AM EDT Office Visit [facility] Endocrinology [address] [place] [address] Rachel Khan PA [address] [facility] [address] [place] [address] 02/16/2025 1:20 PM EDT Office Visit [facility] [place] [address] [facility], [address] [place] [address] Courtney Torres MD [address] [place] [address] 03/15/2025 3:30 PM EDT Consult [place] [facility] [address], 1[address] [place] [address] Kendy Sanchez, SECURITY GUARD DISPATCHER [address] [place] [address] 04/17/2025 2:00 PM EDT Office Visit [facility] Medicine Specialties [address], 2nd [place] [address] Silverio Tam PA [address] [place] [address] Scheduled Orders Name Type Priority [...] documented as of this encounter Care Teams Security Checker Relationship Specialty Start Date End Date Rey Wyatt MD [address] [place] [address] PCP - General 11/16/24 Angela Oleary, RN [facility] Registered Nurse Cardiology 02/17/24 documented as of this encounter
--- OUTSIDE RECORDS SUMMARY | 2025-01-13 14:36 | XMS_ITS | Encounter Summary ---
Author Organization Healthcare Address [address] [place] [address] Care Team Providers Care Geographic Information Systems Engineer Name Role Phone Angela Oleary RN Unavailable Unavailable Rey Wyatt MD Primary Care Provider [phone] Encounter Details Date Type Department Care Team (Late st Contact Info) Description 12/28/2024 Results Follow-Up [facility] Medicine Specialties [address] [place] [address] Estuardo Jon MD [address] [place] [address] Social History Tobacco Use Types [...] any clubs o r organizations such as baptist groups, unions, fraternal or athletic groups, or [...] Recorded Patient Health Questionnaire-2 Score 0 12/15/2024 [facility] - Occupational Stress Questionnaire Answer [...] in a half-way (including now)? No 02/09/2024 [place] Depression Scale Answer Date Recorded [place] Depression Scale Total 6 08/08/2024 The thought [...] drink first t casi in the morning ([employer]) to steady your nerves or [...] EDT Appointment [facility] [address] [place] [id number] Cody Barnett MD [address] [place] [address] 02/10/2025 10:00 AM EDT Office Visit [facility] Endocrinology [address] [place] [address] Rachel Khan, PA [address] [facility] [address] [place] [id number] 02/16/2025 1:20 PM EDT Office Visit [facility] [place] [address], [address] [place] [address] Courtney Torres MD [address] [place] [address] 03/15/2025 3:30 PM EDT Consult [facility] [address] [place] [address] Kendy Sanchez APRN [address] [place] [address] 04/17/2025 2:00 PM EDT Office Visit [facility] Medicine Specialties [address] [place] [address] Silverio Tam, BOOKER [address] [place] [address] documented as of this encounter [...] documented as of this encounter Care Teams Geographic Information Systems Engineer Relationship Specialty [place] [address] [place] [address] [address] [place] [address] PCP - General 11/16/24 Angela Oleary, RN [facility] Registered Nurse Cardiology 02/17/24 documented as of this encounter
--- OUTSIDE RECORDS SUMMARY | 2025-01-13 14:36 | XMS_ITS | Clinical Summary ---
Author Organization [facility] Address [address] [place] [address] Care Team Providers Care Pearler Name Role Phone Angela Oleary RN Unavailable Unavailable Rey Wyatt MD Primary Care Provider [phone] Allergies Active Allergy Reactions Criticality Noted Date [...] Patient not taking.Reported on 12/15/2024 sodium chloride ([place] Nasal [employer] [employer]) 0.65 % nasal spray Administer 1 spray into each nostril if needed for congestion. 30 mL 12 024 Active Additional Information Patient not taking.Reported on 12/15/2024 Blood Glucose Monitoring Suppl (OneTouch Verio Reflect) w/Device kit Active OneTouch Verio test strip 1 each by Other route if needed. Active Lancets (OneTouch Delica Plus [id number]) [facility] Active ibuprofen 600 MG tablet Take 1 [...] 1 tablet by mouth daily. 60 tablet Active Additional Information Patient not taking.Reported on [...] 1 spray into each nostril daily. Active ondansetron ODT (Zofran-ODT) 4 MG disintegrating [...] PM on day before colonoscopy 4 tablet 2024 Discontinued polyethylene glycol (GoLYTELY) 236 g solution SEE PHARMACY NOTES FOR PATIENT LABEL INSTRUCTIONS- for Colonoscopy prep protocol 4000 mL 2024 Discontinued predniSONE (Deltasone) 10 MG tablet Take 4 tablets by mouth daily for 5 days, THEN 3 tablets daily for 5 days, THEN 2 tablets daily for 5 days, THEN 1 tablet daily for 5 days, THEN 0.5 tablets daily for 5 days. 53 tablet 025 2024 Discontinued(R eorder) predniSONE (Deltasone) 10 MG tablet Take 4 tablets by mouth daily for 5 days, THEN 3 tablets daily for 5 days, THEN 2 tablets daily for 5 days, THEN 1 tablet daily for 5 days, THEN 0.5 tablets daily for 5 days. 53 tablet 2024 Hospital, Clinic, or Other Facility Administered Medication [...] Department Care Team Description 12/30/2024 Orders Only [facility] [address] [place] [phone] Silverio Tam PA 12/28/2024 Orders Only [facility] [address], [address] [place] [phone] Silverio Tam PA Abdominal pain, epigastric (Primary Dx); Diarrhea, unspecified type; Weight loss; Hematochezia 12/28/2024 Results [facility] [address], [address] [facility] [place] [phone] Estuardo Jon MD 12/28/2024 Orders Only [facility] [address], [address] [place] [phone] Keya Minor RN Diarrhea, unspecified type 12/20/2024 Results Follow-Up [facility] Medicine Specialties [address], [address] [place] [address] Silverio Tam PA 12/16/2024 Results Follow-Up [facility] Endocrinology [address] [place] [address] Abundio Kyle MBBS 12/15/2024 2:30 PM EDT Office Visit [facility] Medicine Specialties [address], [address] [place] [address] Silverio Tam PA Weight loss (Primary Dx); Abdominal pain, epigastric; Diarrhea, unspecified type; Postural orthostatic tachycardia syndrome (POTS); Hematochezia; Elevated fecal calprotectin; Urticaria; History of anesthesia reaction; Gastroesophageal reflux disease, unspecified whether esophagitis present; Gilbert's syndrome; Nausea and vomiting, unspecified vomiting type; BMI 23.0-23.9, adult 12/15/2024 Travel 12/09/2024 Orders Only [facility] Medicine Specialties [address], [address] [place] [address] Silverio Tam PA 12/08/2024 Travel 12/07/2024 7:03 AM EDT - 12/07/2024 11:59 PM EDT Hospital Encounter [facility] [address] 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 Travel 11/16/2024 Telephone [facility] [address], [address] [place] [address] Kendy SanchezTRISTAN 11/14/2024 Orders Only [facility] Endocrinology [address] [place] [address] Abundio Kyle MBBS Thyrotoxicosis with Tricia thyroiditis (Primary Dx) 11/13/2024 Travel 11/11/2024 8:40 AM EDT Office Visit [facility] Endocrinology [address] [place] [address] (1), Roland Wooten Fellow Abundio Kyle MBBS Thyrotoxicosis with Tricia thyroiditis (Primary Dx); Hyperthyroidism 11/11/2024 Travel 10/21/2024 Telephone [facility] [place] [address] [place] [phone] None, None 10/21/2024 Telephone [facility] Endocrinology [address] [place] [address] Roland Wooten MD 10/20/2024 Travel 10/17/2024 Orders Only [facility] Medicine Specialties [address] [place] [address] Silverio Tam PA Hematochezia (Primary Dx); Abdominal pain, epigastric from Last 3 Months Immunizations Immunization Administration Dates Next Due DTaP, Unspecified 04/26/2002 HPV, Quadrivalent 05/29/2011 Hep A, ped/adol, 2 dose 11/21/2010,02/20/2010 IPV 04/26/2002 Influenza, injectable, quadr ivalent, preservative free 04/29/2023 MMR 07/18/2024(Deferred: Patient Refused),04/26/2002 Tdap 02/20/2010 Varicella 07/06/2001 Family History Medical History Relation Name Comments Autoimmune disease Brother 1 Tristan fagan Crohn's disease Brother 1 Tristan ganft Immunodeficiency Brother 1 Tristan fagan Liver disease Brother 2 Scott Asthma Child Heart attack Father Sahil reynoso Heart failure Father Sahil reynoso Hypertension Father Sahil angelse Stroke Father Sahil reynoso Cancer Maternal Grandmother Melania sheridan Abnormal EKG Mother Avril cradang Autoimmune disease Mother Crystal craft Clotting disorder Mother Crystal craft Depression Mother Crystal craft Immunodeficiency Mother Crystal craft Thyroid disease Mother Crystal craft Thyroid disease Mother's Sister Ashanti Anesthesia problems Neg Hx Malig Hyperthermia Neg Hx Relation Name Status Comments Brother 1 Tristan craft Brother 2 Scott Alive Child Alive Father Sahil angeles Alive Maternal Grandmother Melania sheridan Mother Avril [...] week 02/22/2024 How often do you attend [facility] or restoration services? Never 02/22/2024 Do you belong to any clubs o r organizations such as anabaptism groups, unions, fraternal or athletic groups, or [...] Recorded Patient Health Questionnaire-2 Score 0 12/15/2024 [facility] - Occupational [...] a long term (including now)? 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 [address] Cody Barnett MD [address] [place] [address] 02/10/2025 10:00 AM EDT Office Visit [facility] Endocrinology [address] [place] [phone] Rachel Khan PA [address] [facility] [address] [place] [address] 02/16/2025 1:20 PM EDT Office Visit [facility] [place] [address], [address] [place] [address] Courtney Torres MD [address] [place] [address] 03/15/2025 3:30 PM EDT Consult [facility] [address] [place] [address] Kendy Sanchez, [address] V[address]OR [address] [place] [address] 04/17/2025 2:00 PM EDT Office Visit [facility] Medicine Specialties [address], [address] [place] [address] Silverio Tam PA [address] [place] [address] Health Maintenance Due Date Last [...] - Td or Tdap) 02/21/2020 02/20/2010, 04/26/2002 [id number] Vaccine (2 - Jasmine risk series) 03/21/2021 [...] Quantitative PCR (12/15/2024 3:29 PM EDT) Pathologist [facility] Cytomegalovirus (CMV) Quantitative Interpretation Not Detected Not Detected 12/19/2024 2:26 PM EDT [facility] Blood Venous blood specimen / Unknown Venipuncture / Unknown 12/15/2024 3:29 PM EDT 12/15/2024 3:30 PM EDT Narrative [facility] - 12/19/2024 2:26 PM EDT [employer] M2000 CMV test is a Real Time [...] ORDERABLES Final Res ult Performing Organization Address [facility]/[place] [address] * T3 (12/15/2024 3:29 PM EDT) Only the most recent of2 resultswithin the time period is included. Pathologist [facility] T3, Serum 177 87 - 187 ng/dL 12/15/2024 4:54 PM EDT [facility] Blood Venous blood specimen / Unknown Venipuncture / Unknown 12/15/2024 3:29 PM EDT 12/15/2024 3:30 PM EDT Silverio CELESTE LAB BLOOD ORDERABLES Final Res ult Performing Organization Address [facility]/ZIP Co de Phone Number [facility] [address] [place] [address] * Brayan-Holguin virus VCA, IgM (12/15/2024 3:29 PM EDT) EBV ANTIBODY TO VIRAL CAPSID ANTIGEN IGM <10.0 0.0 - 43.9 U/mL 12/18/2024 11:09 AM EDT [employer]) Blood Venous blood specimen / Unknown Venipuncture / Unknown 12/15/2024 3:29 PM EDT 12/15/2024 3:30 PM EDT Narrative [employer]) - 12/18/2024 11:09 AM EDT INTERPRETIVE INFORMATION: Brayan-Holguin Virus Antibody to Viral Capsid Antigen, IgM 35.9 U/mL or less.......Not Detected 36.0-43.9 U/mL..........Indeterminate - Repeat testing in 10-14 days may be helpful. 44.0 U/mL or greater....Detected Performed By: [facility] [address] [place] [address] Chemical Plant Operator Supervisor: Wilber Pardo MD, PhD CLIA Number: [id number] us Silverio [facility] LAB BLOOD ORDERABLES Final Res ult [employer]) [address] [place] [address] * (ABNORMAL) Brayan Holguin IgG Ab (12/15/2024 3:29 PM EDT) Pathologist [facility] EBV ANTIBODY TO VIRAL CAPSID ANTIGEN IGG 185.0(H) 0.0 - 21.9 U/mL 12/18/2024 11:11 AM EDT [employer]) Blood Venous blood specimen / Unknown Venipuncture / Unknown 12/15/2024 3:29 PM EDT 12/15/2024 3:30 PM EDT Narrative [employer]) - 12/18/2024 11:11 AM EDT INTERPRETIVE INFORMATION: Brayan-Holguin Virus Antibody to Viral Capsid Antigen, IgG 17.9 U/mL or less.......Not Detected 18.0-21.9 U/mL..........Indeterminate - Repeat testing in 10-14 days may be helpful. 22.0 U/mL or greater....Detected Performed By: [facility] [address] [place] [address] Chemical Plant Operator Supervisor: Wilber Pardo MD, PhD CLIA Number: [id number] [facility] LAB BLOOD ORDERABLES Final Res ult Performing Organization Address [facility] Co de Phone Number [employer] [facility] ([facility]) [address] [place] [address] * Prothrombin Time/INR (12/15/2024 3:29 PM EDT) Prothrombin Time 13.7 12.0 - 14.3 sec LAB COAGULATION METHOD 12/15/2024 5:05 PM EDT [facility] INR 1.0 0.9 - 1.1 LAB COAGULATION METHOD 12/15/2024 5:05 PM EDT [facility] Blood Venous blood specimen / Unknown Venipuncture / Unknown 12/15/2024 3:29 PM EDT 12/15/2024 3:30 PM EDT Narrative [facility] - 12/15/2024 5:05 PM EDT OPTIMAL INR RANGES FOR PATIENT ON ORAL ANTICOAGULANT THERAPY Prevention of venous thromboembolism INR 2.0 to 3.0 In patients with heart disease: Atrial fibrillation INR 2.0 to 3.0 Valvular heart disease INR 2.0 to 3.0 Tissue heart valves INR 2.0 to 3.0 Mechanical prosthetic valves INR 2.5 to 3.5 Prevention of recurrent VA INR 2.5 to 3.5 [facility] LAB BLOOD ORDERABLES Final Res ult Performing Organization Address City/[facility]/ZIP Co de Phone Number [facility] [address] [place] [address] * (ABNORMAL) CBC and Differential (12/15/2024 3:29 PM EDT) WBC Count 5.38 3.70 - 10.30 10*3/uL LAB HEMATOLOGY METHOD 12/15/2024 4:38 PM EDT [facility] RBC Count 4.81 3.90 - 5.20 10*6/uL LAB HEMATOLOGY METHOD 12/15/2024 4:38 PM EDT [facility] HGB 12.6 11.2 - 15.7 g/dL LAB HEMATOLOGY METHOD 12/15/2024 4:38 PM EDT [facility] HCT 39.7 34.0 - 45.0 % LAB HEMATOLOGY METHOD 12/15/2024 4:38 PM EDT [facility] Platelet Count 311 155 - 369 10*3/uL LAB HEMATOLOGY METHOD 12/15/2024 4:38 PM EDT [facility] MCV 83 79 - 98 fL LAB HEMATOLOGY METHOD 12/15/2024 4:38 PM EDT [facility] MCH 26.2 26.0 - 32.0 pg LAB HEMATOLOGY METHOD 12/15/2024 4:38 PM EDT [facility] MCHC 31.7 30.7 - 35.5 g/dL LAB HEMATOLOGY METHOD 12/15/2024 4:38 PM EDT [facility] RDW 12.2 11.5 - 14.5 % LAB HEMATOLOGY METHOD 12/15/2024 4:38 PM EDT [facility] MPV 11.2 8.8 - 12.5 fL LAB HEMATOLOGY METHOD 12/15/2024 4:38 PM EDT [facility] nRBC 0.0 <=0.0 per 100 WBCs LAB HEMATOLOGY METHOD 12/15/2024 4:38 PM EDT [facility] Differential Type Automated LAB HEMATOLOGY METHOD 12/15/2024 4:38 PM EDT [facility] Neutrophils % 61 % LAB HEMATOLOGY METHOD 12/15/2024 4:38 PM EDT [facility] Lymphocytes % 32 % LAB HEMATOLOGY METHOD 12/15/2024 4:38 PM EDT [facility] Monocytes % 5 % LAB HEMATOLOGY METHOD 12/15/2024 4:38 PM EDT [facility] Eosinophils % 1 % LAB HEMATOLOGY METHOD 12/15/2024 4:38 PM EDT [facility] Basophils % 1 % LAB HEMATOLOGY METHOD 12/15/2024 4:38 PM EDT [facility] Immature Granulocytes % 0 % LAB HEMATOLOGY METHOD 12/15/2024 4:38 PM EDT [facility] Neutrophils Absolute 3.33 1.60 - 6.10 10*3/uL LAB HEMATOLOGY METHOD 12/15/2024 4:38 PM EDT [facility] Lymphocytes Absolute 1.70 1.20 - 3.90 10*3/uL LAB HEMATOLOGY METHOD 12/15/2024 4:38 PM EDT [facility] Monocytes Absolute 0.25(L) 0.30 - 0.90 10*3/uL LAB HEMATOLOGY METHOD 12/15/2024 4:38 PM EDT [facility] Eosinophils Absolute 0.03 0.00 - 0.50 10*3/uL LAB HEMATOLOGY METHOD 12/15/2024 4:38 PM EDT [facility] Basophils Absolute 0.05 0.00 - 0.10 10*3/uL LAB HEMATOLOGY METHOD 12/15/2024 4:38 PM EDT [facility] Immature Granulocytes Absolute 0.02 0.00 - 0.06 10*3/uL LAB HEMATOLOGY METHOD 12/15/2024 4:38 PM EDT [facility] Blood Venous blood specimen / Unknown Venipuncture / Unknown 12/15/2024 3:29 PM EDT 12/15/2024 3:30 PM EDT Narrative [facility] - 12/15/2024 4:38 PM EDT Therapeutic decision making should be based on absolute values, rather than percentages. us [facility]io CELESTE LAB BLOOD ORDERABLES Final Res ult [facility] [address] [place] [address] * (ABNORMAL) TSH (12/15/2024 3:29 PM EDT) Only the most recent of3 resultswithin the time period is included. Thyroid Stimulating Hormone, Plasma <0.01(L) 0.40 - 4.20 uIU/mL 12/15/2024 4:54 PM EDT [facility] Blood Venous blood specimen / Unknown Venipuncture / Unknown 12/15/2024 3:29 PM EDT 12/15/2024 3:30 PM EDT Narrative [facility] - 12/15/2024 4:54 PM EDT Trimester Specific Ranges TSH ( IU/mL) 1st Trimester 0.1 - 3.0 2nd Trimester 0.19 - 4.06 3rd Trimester 0.3 - 3.7 Roland Wooten MD LAB BLOOD ORDERABLES Final Resu lt Performing Organization Address [facility] de Phone Number [facility] [address] [place] [address] * T4, free (12/15/2024 3:29 PM EDT) Only the most recent of3 resultswithin the time period is included. Free T4, Plasma 1.7 0.8 - 1.7 ng/dL 12/15/2024 4:54 PM EDT [facility] Blood Venous blood specimen / Unknown Venipuncture / Unknown 12/15/2024 3:29 PM EDT 12/15/2024 3:30 PM EDT Narrative [facility] - 12/15/2024 4:54 PM EDT Free T4 Trimester Specific Ranges 1st Trimester 0.9 - 1.50 ng/dL 2nd Trimester 0.7 - 1.40 ng/dL 3rd Trimester 0.7 - 1.24 ng/dL Roland Wooten MD LAB BLOOD ORDERABLES Final Resu lt Performing Organization Address [facility] de Phone Number [facility] [address] [place] [address] * (ABNORMAL) Comprehensive Metabolic Panel, Plasma (12/15/2024 3:29 PM EDT) Only the most recent of2 resultswithin the time period is included. Glucose, Plasma 84 74 - 99 mg/dL 12/15/2024 4:54 PM EDT [facility] BUN, Plasma 8 7 - 21 mg/dL 12/15/2024 4:54 PM EDT [facility] Creatinine, Plasma 0.60 0.60 - 1.10 mg/dL 12/15/2024 4:54 PM EDT [facility] BUN/Creatinine Ratio 13 12/15/2024 4:54 PM EDT [facility] Sodium, Plasma 140 136 - 145 mmol/L 12/15/2024 4:54 PM EDT [facility] Potassium, Plasma 4.1 3.6 - 4.9 mmol/L 12/15/2024 4:54 PM EDT [facility] Chloride, Plasma 105 97 - 107 mmol/L 12/15/2024 4:54 PM EDT [facility] CO2, Plasma 21(L) 22 - 29 mmol/L 12/15/2024 4:54 PM EDT [facility] Anion Gap 14 6 - 16 mmol/L 12/15/2024 4:54 PM EDT [facility] Total Calcium, Plasma 9.4 8.9 - 10.2 mg/dL 12/15/2024 4:54 PM EDT [facility] Total Protein 8.1(H) 6.3 - 7.9 g/dL 12/15/2024 4:54 PM EDT [facility] Albumin, Plasma 4.6 3.5 - 5.2 g/dL 12/15/2024 4:54 PM EDT [facility] AST, Plasma 16 10 - 35 U/L 12/15/2024 4:54 PM EDT [facility] ALT, Plasma 23 10 - 35 U/L 12/15/2024 4:54 PM EDT [facility] Alkaline Phosphatase, Plasma 58 35 - 104 U/L 12/15/2024 4:54 PM EDT [facility] Total Bilirubin, Plasma 0.7 0.2 - 1.1 mg/dL 12/15/2024 4:54 PM EDT [facility] eGFRcr 127.1 mL/min/1.7 3m*2 12/15/2024 4:54 PM EDT [facility] Comment:Reported eGFRcr in m L/min/1.73m2 is based the CKD-EPI 2020 equation that does not use a race coefficient. Blood Venous blood specimen / Unknown Venipuncture / Unknown 12/15/2024 3:29 PM EDT 12/15/2024 3:30 PM EDT us Silverio CELESTE LAB BLOOD ORDERABLES Final Res ult [facility] [address] [place] [address] * Patency Capsule (12/07/2024 7:03 AM EDT) [...] Aly Posada MD on 11/20/2024 9:49 PM Shnai Flaca Shankar DO IMG XR PROCEDURES Final Resul t * Troponin now and 120 min (11/20/2024 9:17 PM EDT) Troponin T, High Sensitivity, 0 Hour <6 <14 ng/L 11/20/2024 9:47 PM EDT [facility] Blood Venous blood specimen / Unknown Venipuncture / Unknown 11/20/2024 9:17 PM EDT 11/20/2024 9:20 PM EDT us Shani Flaca Shankar DO LAB BLOOD ORDERABLES Final Re sult [facility] [address] [place] [address] * CBC (11/20/2024 9:17 PM EDT) WBC Count 4.69 3.70 - 10.30 10*3/uL LAB HEMATOLOGY METHOD 11/20/2024 9:23 PM EDT [facility] RBC Count 4.26 3.90 - 5.20 10*6/uL LAB HEMATOLOGY METHOD 11/20/2024 9:23 PM EDT [facility] HGB 11.8 11.2 - 15.7 g/dL LAB HEMATOLOGY METHOD 11/20/2024 9:23 PM EDT [facility] HCT 35.8 34.0 - 45.0 % LAB HEMATOLOGY METHOD 11/20/2024 9:23 PM EDT [facility] Platelet Count 197 155 - 369 10*3/uL LAB HEMATOLOGY METHOD 11/20/2024 9:23 PM EDT [facility] MCV 84 79 - 98 fL LAB HEMATOLOGY METHOD 11/20/2024 9:23 PM EDT [facility] MCH 27.7 26.0 - 32.0 pg LAB HEMATOLOGY METHOD 11/20/2024 9:23 PM EDT [facility] MCHC 33.0 30.7 - 35.5 g/dL LAB HEMATOLOGY METHOD 11/20/2024 9:23 PM EDT [facility] RDW 12.5 11.5 - 14.5 % LAB HEMATOLOGY METHOD 11/20/2024 9:23 PM EDT [facility] MPV 11.6 8.8 - 12.5 fL LAB HEMATOLOGY METHOD 11/20/2024 9:23 PM EDT [facility] nRBC 0.0 <=0.0 per 100 WBCs LAB HEMATOLOGY METHOD 11/20/2024 9:23 PM EDT [facility] Blood Venous blood specimen / Unknown Venipuncture / Unknown 11/20/2024 9:17 PM EDT 11/20/2024 9:20 PM EDT us Shani L Vonnie DO LAB BLOOD ORDERABLES Final Re sult [facility] [address] [place] [address] * hCG qualitative (11/20/2024 9:17 PM EDT) Test Negative Negative 11/20/2024 10:02 PM EDT [facility] Blood Venous blood specimen / Unknown Venipuncture / Unknown 11/20/2024 9:17 PM EDT 11/20/2024 9:20 PM EDT Narrative [facility] - 11/20/2024 10:02 PM EDT Reference Range: Males and non- females: Negative. us Shani L ConteXtream DO LAB BLOOD ORDERABLES Final Re sult Performing Organization Address City/[facility]/ZIP Co de Phone Number [facility] [address] [place] [address] * Phosphorus (11/20/2024 9:17 PM EDT) Phosphorus, Plasma 3.5 2.5 - 4.5 mg/dL 11/20/2024 10:02 PM EDT [facility] Blood Venous blood specimen / Unknown Venipuncture / Unknown 11/20/2024 9:17 PM EDT 11/20/2024 9:20 PM EDT us Shani L [place] DO LAB BLOOD ORDERABLES Final Re sult [facility] [address] [place] [address] * Magnesium (11/20/2024 9:17 PM EDT) Magnesium, Plasma 2.1 1.9 - 2.4 mg/dL 11/20/2024 10:02 PM EDT [facility] Blood Venous blood specimen / Unknown Venipuncture / Unknown 11/20/2024 9:17 PM EDT 11/20/2024 9:20 PM EDT us Shani L Vonnie DO LAB BLOOD ORDERABLES Final Re sult [facility] [address] [place] [address] * (ABNORMAL) Blood gas panel, venous (11/20/2024 9:17 PM EDT) pH, Venous 7.38 7.32 - 7.43 LAB HEMATOLOGY METHOD 11/20/2024 9:21 PM EDT [facility] pCO2, Venous 44 37 - 52 mmHg LAB HEMATOLOGY METHOD 11/20/2024 9:21 PM EDT [facility] pO2, Venous 26 25 - 40 mmHg LAB HEMATOLOGY METHOD 11/20/2024 9:21 PM EDT [facility] SO2, Measured, Venous 44(L) 65 - 80 % LAB HEMATOLOGY METHOD 11/20/2024 9:21 PM EDT [facility] Base Excess, Venous 0.2 -2.0 - 3.0 mmol/L LAB HEMATOLOGY METHOD 11/20/2024 9:21 PM EDT [facility] Bicarbonate, Calculated, Venous 26 22 - 26 mmol/L LAB HEMATOLOGY METHOD 11/20/2024 9:21 PM EDT [facility] Hematocrit, Whole Blood 37.4 34.0 - 45.0 % LAB HEMATOLOGY METHOD 11/20/2024 9:21 PM EDT [facility] Sodium, Whole Blood 141 136 - 145 mmol/L LAB HEMATOLOGY METHOD 11/20/2024 9:21 PM EDT [facility] Potassium, Whole Blood 4.0 3.6 - 4.9 mmol/L LAB HEMATOLOGY METHOD 11/20/2024 9:21 PM EDT [facility] Chloride, Whole Blood 110(H) 97 - 107 mmol/L LAB HEMATOLOGY METHOD 11/20/2024 9:21 PM EDT [facility] Glucose, Whole Blood 98 74 - 99 mg/dL LAB HEMATOLOGY METHOD 11/20/2024 9:21 PM EDT [facility] Lactate, Venous, Whole Blood 1.0 0.5 - 2.2 mmol/L LAB HEMATOLOGY METHOD 11/20/2024 9:21 PM EDT [facility] Ionized Calcium, Whole Blood 4.8 4.6 - 5.1 mg/dL LAB HEMATOLOGY METHOD 11/20/2024 9:21 PM EDT [facility] Blood Venous blood specimen / Unknown Venipuncture / Unknown 11/20/2024 9:17 PM EDT 11/20/2024 9:20 PM EDT us Shani Shankar DO LAB BLOOD ORDERABLES Final Re sult [facility] [address] [place] [address] * EKG now - STAT (adult) (11/20/2024 8:52 PM EDT) EKG DIAGNOSIS CLASS Abnormal MUSE ECG Ventricular Rate 83 BPM MUSE ECG Atrial Rate 83 BPM MUSE ECG NV Interval 128 ms MUSE ECG QRSD Interval 72 ms MUSE ECG QT Interval 342 ms MUSE ECG QTC Interval 401 ms MUSE ECG P [place] 60 degrees MUSE ECG R [place] 62 degrees MUSE ECG T Wave [place] 21 degrees MUSE ECG Diagnosis Sinus rhythm [...] Reactive Non Reactive 04/18/2024 12:07 PM EDT [facility] Comment:Screening for HIV 1 & 2 antibodies, and P24 antigen is NONREACTIVE. No confirmatory testing is required. Blood Venous blood specimen / Unknown Venipuncture / Unknown 04/18/2024 10:13 AM EDT 04/18/2024 10:13 AM EDT us Shalonda Flaca Davies APRN LAB BLOOD ORDERABLES Susannah l Result Performing Organization Address City/[facility]/ZIP Co de Phone Number [facility] [address] [place] [address] * Hepatitis C Antibody - ED (02/07/2024 10:11 PM EDT) Hepatitis C Antibody Negative Negative 02/07/2024 11:11 PM EDT [facility] Blood Venous blood specimen / Unknown Venipuncture / Unknown 02/07/2024 10:11 PM EDT 02/07/2024 10:18 PM EDT us Mark Roger MD LAB BLOOD ORDERABLES Final Resu lt Performing Organization Address [facility] Co de Phone Number [facility]ALTHCARE [facility] [address] [place] [address] from Last 3 Months or Most Recently Relevant to Health Maintenance Additional Health Concerns Active Problems Noted Date Diagnosed Date CPM S22 PP LABOR (OBSTETRICS) 02/24/[address] [place] [id number] Advance Directives * Full Code (Latest Code [...] Patient has decision-making capacity? Yes Care Teams Pearler Relationship Specialty Start Date End Date Rey Wyatt MD [address] [facility] [address] [place] [address] PCP - General 11/16/24 Angela Oleary, RN [facility] Registered Nurse Cardiology 02/17/24
--- OUTSIDE RECORDS SUMMARY | 2025-01-13 14:36 | XMS_ITS | Encounter Summary ---
Author Organization Healthcare Address [address] [place] [address] Care Team Providers Care Blockman Name Role Phone Angela Oleary RN Unavailable Unavailable Rey Wyatt MD Primary Care Provider [phone] Encounter Details Date Type Department Care Team (Late st Contact Info) Description 12/28/2024 Orders Only [facility] Medicine Specialties [address], 2nd [place] [phone] Keya Minor RN [facility] Diarrhea, [...] often do you attend chur ch or tenriism services? Never 02/22/2024 Do you belong to any clubs o r organizations such as presybeterian groups, unions, fraternal or athletic groups, or [...] Recorded Patient Health Questionnaire-2 Score 0 12/15/2024 [facility] [...] in a usp (including now)? 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 [address] Cody Barnett MD [address] [place] [address] 02/10/2025 10:00 AM EDT Office Visit [facility] Endocrinology [address] [place] [address] Rachel Khan PA [address] [place] [address] 02/16/2025 1:20 PM EDT Office Visit [facility] [place] [address], [address] [place] [address] Courtney Torres MD [address] [place] [address] 03/15/2025 3:30 PM EDT Consult [facility] [address], 1[address] [place] [address] Kendy Sanchez APRN [address] [place] [address] 04/17/2025 2:00 PM EDT Office Visit [facility] Medicine Specialties [address], 2[address] [place] [address] Silverio Tam PA [address] [place] [address] documented as of this encounter [...] documented as of this encounter Care Teams Blockman Relationship Specialty Start Date End Date Rey Wyatt MD [address] [place] [address] PCP - General 11/16/24 Angela Oleary, RN [facility] Registered Nurse Cardiology 02/17/24 documented as of this encounter
--- OUTSIDE RECORDS SUMMARY | 2025-01-13 14:37 | XMS_ITS | Clinical Summary ---
Author Organization [employer] Address [address] [place] [address] Care Team Providers Care Supervisor Specialty Plant Name Role Phone Molly Louis MD Primary Care Provider [phone] Allergies Active Allergy Reactions Criticality Noted Date [...] Date Guerrero rded Speak language other than Citizen Of [place] at home Not on file 08/13/2023 Want [...] Ended) 2025 Medical Devices Implanted Type Area Nanotechnology Engineering Technologist Device Identifier Shelf Expiration Date Model / Serial / Lot K-Wire [id number] - [id number] Implanted:Qty: 1 on 08/04/2022 by Rex Rene MD at [facility] IMPLANTS Right: Hand ANNIA:[employer] [id number] / / Wire K-Wire 1.6mm - [id number] Implanted:Qty: 1 on 08/04/2022 by Rex Rene MD at [facility] IMPLANTS Right: Hand BUCK MED GRP:[employer] TECH / / [place] [place] [address] Advance Directives For more information, please contact: [phone] * Full Code (Latest Code Status on File) Date Activated Date Inactivated Comments 08/04/2022 6:03 AM 08/04/2022 11:35 AM Care Teams Supervisor Specialty Plant Relationship Specialty Start Date End Date Molly Louis MD [address] [place] [address] [address] [place] [address] PCP - General 08/22/24
--- OUTSIDE RECORDS SUMMARY | 2025-01-13 14:37 | XMS_ITS | Encounter Summary ---
Author Organization Healthcare Address [address] [place] [address] Care Team Providers Care Registered Representative Name Role Phone Molly Louis MD Primary Care Provider [phone] Angela Oleary RN Unavailable Unavailable Rey Wyatt MD Primary Care Provider [phone] Reason for Visit * Reason Onset Date Comments Med Refill 03/03/2024 Encounter Details Date Type Department Care Team ([facility] Contact Info) Description 03/03/2024 Refill Medical Office Building Obstetrics and Gynecology [address], [address] [place] [address] RipleyEarle Villagomez MD [address] [place] [address] Supervision of high risk in [...] How often do you attend chur or zoroastrian services? Never 02/22/2024 Do you belong to [...] Recorded Patient Health Questionnaire-2 Score 0 02/17/2024 [facility] ional Health - Occupational [...] a care home (including now)? No 02/09/2024 [place] Depression Scale Answer Date Recorded [place] Depression Scale Total 8 02/22/2024 The thought [...] requesting to speak with a nurse- see [facility] for details about symptoms she is experiencing. * Telephone Encounter - Luh Keenan RN - 03/04/2024 1:56 PM EDT Patient has refills on file. Needs to call pharmacy. Luh Keenan, RN documented in this encounter Plan of Treatment Upcoming Encounters Date Type Department Care Team (Late st Contact Info) Description 01/17/2025 7:00 AM EDT Appointment [facility] Endoscopy [address] [place] [address] Cody Barnett MD [address] [place] [address] 02/10/2025 10:00 AM EDT Office Visit [facility] [address] [place] [phone] Rachel Khan PA [address] [facility] [address] [place] [address] 02/16/2025 1:20 PM EDT Office Visit [facility] [place] [address], [address] [place] [address] Courtney Torres MD [address] [place] [address] 03/15/2025 3:[address] [facility] [address], 1[address] [place] [address] Kendy Sanchez, TRISTAN [address] [place] [address] 04/17/2025 2:00 PM EDT Office Visit [facility] Medicine Specialties [address], [address] [place] [address] Silverio Tam PA [address] [place] [address] documented as of this encounter [...] documented as of this encounter Care Teams Registered Representative Relationship Specialty Start Date End Date Molly Louis MD [address] [place] [phone] PCP - General Family Medicine 02/09/24 11/15/24 Rey Wyatt MD [address] [place] [address] PCP - General 11/16/24 Angela Oleary, RN [facility] Registered Nurse Cardiology 02/17/24 documented as of this encounter
--- OUTSIDE RECORDS SUMMARY | 2025-01-13 14:37 | XMS_ITS | Encounter Summary ---
Author Organization [employer] Address [address] [place] [address] Care Team Providers Care Pipe Layer Name Role Phone Molly Louis MD Primary Care Provider [phone] Encounter Details Date Type Department Care Team (Late st Contact Info) Description 08/22/2024 Outside Orders [facility] Admitting [address] [place] [address] Silverio Tam, BOOKER [address] Floor Wing [place] [phone] Esophageal reflux (Primary Dx) Social History Tobacco [...] Date Guerrero rded Speak language other than Chilean at home Not on file 08/13/2023 Want [...] EIA Negative Negative 08/23/2024 10:57 PM EST [employer] Comment: Performed By: [facility] [employer] [address] [place] [address] Sports Attorney: Wilber Pardo MD, PhD CLIA Number: [id number] Stool 08/22/2024 11:3 5 AM EST 08/22/2024 11:36 AM EST [facility] - GENERAL ORDERAB LES Final Result Performing Organization Address City/State/[facility] Co de Phone Number [employer] [address] [place] [address], [facility] [phone] * Calprotectin, Fecal by Immunoassay(SENDOUT) (08/22/2024 11:35 AM EST) Calprotectin, Fecal 26 <=49 ug/g 08/26/2024 8:14 AM EST [employer] Comment: REFERENCE INTERVAL: Calprotectin, Fecal by Immunoassay Less than 50 ug/g........Normal 50-120 ug/g..............Borderline elevated, test should be re-evaluated in 4-6 weeks. 121 ug/g or greater......Elevated Performed By: [employer] [address] [place] [address] Sports Attorney: Wilber Pardo MD, PhD CLIA Number: [id number] Stool 08/22/2024 11:3 5 AM EST 08/22/2024 11:36 AM EST us [facility] - GENERAL ORDERAB LES Final Result [employer] [address] [place] [address], [facility] [phone] documented in this encounter Visit Diagnoses Diagnosis Esophageal reflux- Primary documented in this encounter Care Teams Pipe Layer Relationship Specialty Start Date End Date Molly Louis MD [address] [place] [address] PCP - General 08/22/24 documented as of this encounter
--- OUTSIDE RECORDS SUMMARY | 2025-01-13 14:37 | XMS_ITS | Encounter Summary ---
Author Organization Healthcare Address [address] [place] [id number] Care Team Providers Care Dry Press Operator Name Role Phone Molly Louis MD Primary Care Provider Angela Oleary RN Unavailable Unavailable Rey Wyatt MD Primary Care Provider [phone] Reason for Visit * Reason Onset Date Comments Med Refill 03/03/2024 Encounter Details Date Type Department Care Team (Late st Contact Info) Description 03/03/2024 Refill [facility] A Inpatient [address] [place] [address] Paris Marion MD [address] [place] [address] Social History Tobacco Use Types Packs/Day Years [...] often do you attend chur ch or buddhist services? Never 02/22/2024 Do you belong to any clubs o r organizations such as advent groups, unions, fraternal or athletic groups, or [...] Recorded Patient Health Questionnaire-2 Score 0 02/17/2024 [facility] - Occupational Stress Questionnaire Answer Date [...] in a mcc (including now)? No 02/09/2024 [place] Depression Scale Answer Date Recorded [place] Depression Scale Total 8 02/22/2024 The thought [...] EDT Appointment P[facility] S Endoscopy [address] [place] [address] Cody Barnett MD [address] [place] [address] 02/10/2025 10:00 AM EDT Office Visit [facility] Endocrinology [address] [place] [address] Rachel Khan PA [address] [place] [address] 02/16/2025 1:20 PM EDT Office Visit [facility] [place] [facility] [place] [address], [address] [place] [address] Courtney Torres MD [address] [place] [address] 03/15/2025 3:30 PM EDT Consult [facility] [address] [place] [address] Kendy Sanchez APRN [address] [place] [address] 04/17/2025 2:00 PM EDT Office Visit [facility] Medicine Specialties [address], [address] [place] [address] Silverio Tam PA [address] [place] [address] documented as of this encounter [...] documented as of this encounter Care Teams Dry Press Operator Relationship Specialty Start Date End Date Molly Louis MD [address] [place], [place] [phone] PCP - General Family Medicine 02/09/24 11/15/24 [place] [address] [place] [address] PCP - General 11/16/24 Angela Oleary, RN [facility] Registered Nurse Cardiology 02/17/24 documented as of this encounter
--- OUTSIDE RECORDS SUMMARY | 2025-01-13 14:37 | XMS_ITS | Referral Summary ---
Author Organization [employer] Address [address] [place] [address] Care Team Providers Care Final Block Press Operator Name Role Phone Molly Louis MD Primary Care Provider [phone] Allergies Active Allergy Reactions Criticality Noted Date [...] Date Guerrero rded Speak language other than [place]ican at home Not on file 08/13/2023 Want [...] on file Medical Devices Implanted Type Area Chimney Builder Device Identifier Shelf Expiration Date Model / Serial / Lot K-Wire [id number] - [id number] Implanted:Qty: 1 on 08/04/2022 by Rex Rene MD at [facility] IMPLANTS Right: Hand ANNIA:[employer] [id number] / / Wire K-Wire 1.6mm - [id number] Implanted:Qty: 1 on 08/04/2022 by Rex Rene MD at [facility] IMPLANTS Right: Hand Gear6 GRP:Gear6 TECH [id number] / / Insurance [facility] Advance Directives For more information, please contact: [phone] * Full Code (Latest Code Status on File) Date Activated Date Inactivated Comments 08/04/2022 6:03 AM 08/04/2022 11:35 AM Care Teams Final Block Press Operator Relationship Specialty Start Date End Date Molly Louis MD [address] [place] [address] [address] [place] [address] PCP - General 08/22/24
--- OUTSIDE RECORDS SUMMARY | 2025-01-13 14:37 | XMS_ITS | Encounter Summary ---
Author Organization [employer] Address [address] [place] [address] Care Team Providers Care Gunner'S Mate G Name Role Phone Molly Louis MD Primary Care Provider [phone] Encounter Details Date Type Department Care Team (Late st Contact Info) Description 04/14/2024 Outside Orders [facility] Admitting [address] [place] [address] Silverio Tam, BOOKER [address] Wing [place] [id number] Blood in stool (Primary Dx) Social History [...] Date Guerrero rded Speak language other than Equatorial Guinean at home Not on file 08/13/2023 Want [...] 87(H) <=49 ug/g 04/19/2024 11:26 PM EDT [facility] Comment: REFERENCE INTERVAL: Calprotectin, Fecal by Immunoassay Less than 50 ug/g.........Normal 50-120 ug/g...............Borderline elevated, test should be re-evaluated in 4-6 weeks. 121 ug/g or greater.......Elevated Performed By: [employer] [address] [place] [address] Instructional Technology Specialist: Wilber Pardo MD, PhD CLIA Number: [id number] Stool 04/14/2024 11:0 6 AM EDT 04/14/2024 11:47 AM EDT us [facility] - GENERAL ORDERAB LES Final Result [facility] [address] [place] [address], [facility] [phone] documented in this encounter Visit Diagnoses Diagnosis Blood in stool- Primary documented in this encounter Care Teams Gunner'S Mate G Relationship Specialty Start Date End Date Molly Louis MD [address] [place] [address] PCP - General 08/22/24 documented as of this encounter
--- OUTSIDE RECORDS SUMMARY | 2025-01-13 14:37 | XMS_ITS | Encounter Summary ---
Author Organization Healthcare Address [address] [place] [address] Care Team Providers Care Cardiology Technician Name Role Phone Pcp, No Primary Care Provider UnavailMolly Newman MD Primary Care Provider [phone] Angela Oleary RN Unavailable Unavailable Rey Wyatt MD Primary Care Provider [phone] Encounter Details Date Type Department Care Team (Late Contact Info) Description 01/22/2024 Orders Only External Location [address] [place] [address] Provider, External Social History Tobacco Use Types [...] EDT Appointment PAV S Endoscopy [address] [place] [address] Cody Barnett MD [address] [place] [address] 02/10/2025 10:00 AM EDT Office Visit [facility] Endocrinology [address] [place] [address] Rachel Khan PA [address] [place] [address] 02/16/2025 1:20 PM EDT Office Visit [facility] [address], [address] [place] [address] Courtney Torres MD [address] [place] [address] 03/15/2025 3:30 PM EDT Consult [facility] [address], [address] [place] [address] Kendy Sanchez APRN [address] [place] [address] 04/17/2025 2:00 PM EDT Office Visit [facility] Medicine Specialties [address], [address] [place] [address] Silverio Tam PA [address] [place] [address] documented as of this encounter [...] documented as of this encounter Care Teams Cardiology Technician Relationship Specialty Start Date End Date Pcp, No [address] [place] [address] PCP - General Family Medicine 01/22/24 02/08/24 Molly Louis MD [address] [place] [address] PCP - General Family Medicine 02/09/24 11/15/24 Rey Wyatt MD 1700 [facility] [address] [place] [address] PCP - General 11/16/24 Angela Oleary, RN [facility] Registered Nurse Cardiology 02/17/24 documented as of this encounter
--- OUTSIDE RECORDS SUMMARY | 2025-01-13 14:37 | XMS_ITS | Encounter Summary ---
Author Organization Healthcare Address [address] [place] [address] Care Team Providers Care Computer Programmer Name Role Phone Molly Louis MD Primary Care Provider [phone] Angela Oleary RN Unavailable Unavailable Rey Wyatt MD Primary Care Provider [phone] Reason for Visit * Reason Onset Date Comments Med Refill 07/19/2024 Encounter Details Date Type Department Care Team (Late st Contact Info) Description 07/19/2024 Refill [facility] [address], [address] [place] [address] Paris Marion MD [address] [place] [address] Social History Tobacco Use Types Packs/Day Years [...] How often do you attend chur or jainism services? Never 02/22/2024 Do you [...] Recorded Patient Health Questionnaire-2 Score 0 06/22/2024 [facility] - Occupational Stress Questionnaire [...] in a fdc (including now)? No 02/09/2024 [place] Depression Scale Answer Date Recorded [place] Depression Scale Total 8 02/22/2024 The thought [...] drink first t casi in the morning (EYE-CANCER REGISTRY MANAGER) to steady your nerves or to [...] EDT Appointment PAV S Endoscopy [address] [place] [address] Cody Barnett MD [address] [place] [address] 02/10/2025 10:00 AM EDT Office Visit [facility] Endocrinology [address] [place] [address] Rachel Khan PA [address] [facility] [address] [place] [address] 02/16/2025 1:20 PM EDT Office Visit [facility] [place] [address] [facility], [address] [place] [address] Courtney Torres MD [address] [facility] [address] [place] [address] 03/15/2025 3:30 PM EDT Consult [facility] [address], [address] [place] [address] Kendy Sanchez APRN [address] [place] [address] 04/17/2025 2:00 PM EDT Office Visit [facility] Medicine Specialties [address], [address] [place] [address] Silverio Tam PA [address] [place] [address] documented as of this encounter [...] documented as of this encounter Care Teams Computer Programmer Relationship Specialty Start Date End Date Molly Louis MD [address] [place] [address] PCP - General Family Medicine 02/09/24 11/15/24 Rey Wyatt MD [address] [place] [address] PCP - General 11/16/24 Angela Oleary, RN [facility] Registered Nurse Cardiology 02/17/24 documented as of this encounter
--- OUTSIDE RECORDS SUMMARY | 2025-01-13 14:37 | XMS_ITS | Encounter Summary ---
Author Organization Healthcare Address [address] [place] [address] Care Team Providers Care Ladle Mechanic Name Role Phone Angela Oleary RN Unavailable Unavailable Rey Wyatt MD Primary Care Provider [phone] Encounter Details Date Type Department Care Team (Late st Contact Info) Description 12/30/2024 Orders Only [facility] Medicine Specialties [address] [place] [address] Silverio Tam PA [address] [place] [address] Social History Tobacco Use Types [...] often do you attend chur ch or lutheran services? Never 02/22/2024 Do you belong to any clubs o r organizations such as pentecostalism groups, unions, fraternal or athletic groups, or [...] Recorded Patient Health Questionnaire-2 Score 0 12/15/2024 [facility] - [facility] Stress Questionnaire [...] in a correction (including now)? No 02/09/2024 [place] Depression Scale Answer Date Recorded [place] Depression Scale Total 6 08/08/2024 The thought [...] drink first t casi in the morning (EYE-FIREWOOD CUTTER) to steady your nerves or to get rid of a hangover? 0 07/16/2024 CAGE Questionnaire Score 0 024 Utilities Answer Date Recorded In the past 12 months has th e [employer], gas, oil, or water company threatened to [...] EDT Appointment PAV S Endoscopy [address] [place] [address] Cody Barnett MD [address] [place] [address] 02/10/2025 10:00 AM EDT Office Visit [facility] Endocrinology [address] [place] [address] Rachel Khan PA [address] [facility] [address] [place] [address] 02/16/2025 1:20 PM EDT Office Visit [facility] [place] [address] [facility], [address] [place] [address] Courtney Torres MD [address] [facility] [address] [place] [address] 03/15/2025 3:30 PM EDT Consult [facility] [address] [place] [address] Kendy Sanchez APRN [address] [place] [address] 04/17/2025 2:00 PM EDT Office Visit [facility] Medicine Specialties [address], [address] [place] [address] Silverio Tam PA [address] [place] [address] documented as of this encounter [...] documented as of this encounter Care Teams Ladle Mechanic Relationship Specialty Start Date End Date Rey Wyatt MD [address] [place] [address] PCP - General 11/16/24 Angela Oleary, RN [facility] Registered Nurse Cardiology 02/17/24 documented as of this encounter
== END 2025-01-13 23:59 | disposition home or self-care (01) ==
LOC: RAD 14:32
PROVIDERS: PCP Nurse Practitioner Family; Visit Provider Nurse Practitioner Family
DX: R69 Illness, unspecified (principal)

== ENCOUNTER 2025-01-13 15:32 | Outpatient (CLI) | payer MEDICAID, SELFPAY ==
--- OUTSIDE RECORDS SUMMARY | 2024-11-16 15:15 | XMS_ITS | Encounter Summary ---
Author Organization Healthcare Address [address] [place] [id number] Care Team Providers Care Director Of Medical Review Name Role Phone Angela Oleary RN Unavailable Unavailable Rey Wyatt MD Primary Care Provider [phone] Encounter Details Date Type Department Care Team ([facility] st Contact Info) Description 11/16/2024 3:15 PM EDT Office Visit [facility] [place] [address] [address] [facility], [address] [place] [address] Ashanti Camarena MD [address] [place] [phone] Pott's disease (Primary Dx) Social History Tobacco [...] How often do you attend chur or jew services? Never 02/22/2024 Do you belong to any clubs o r organizations such as scientology groups, unions, fraternal or athletic groups, or [...] Recorded Patient Health Questionnaire-2 Score 0 11/16/2024 [facility] Occupat ional Health - Occupational Stress [...] a senior living (including now)? No 02/09/2024 [place] Depression Scale Answer Date Recorded [place] Depression Scale Total 6 08/08/2024 The thought [...] drink first t casi in the morning (EYE-SUBSTATION ELECTRICIAN SUPERVISOR) to steady your nerves or to [...] like to establish with Dr. Torres in [facility] clinic. I spent 35 minutes performing the following components of the encounter (on the day of the encounter): reviewing History, examining the patient, reviewing imaging and/or labs, Independently interpreting echocardiogram, ECG and/or other imaging results, ordering tests or procedures, ordering medications, counseling the patient and family/caregiver, communicating with other health senior care manager, care coordination, and entering clinical information in [...] EDT Appointment [facility] [address] [place] [address] Cody Barnett MD [address] [place] [address] 02/10/2025 10:00 AM EDT Office Visit [facility] Endocrinology [address] [place] [address] Rachel Khan PA [address] [place] [address] 02/16/2025 1:20 PM EDT Office Visit [facility] [place] [address], [address] [place] [address] Courtney Torres MD [address] [place] [address] 03/15/2025 3:30 PM EDT Consult [facility] [address], [address] [place] [address] Kendy Sanchez, TRISTAN [address] [place] [address] 04/17/2025 2:00 PM EDT Office Visit [facility] Medicine Specialties [address], [address] [place] [address] Silverio Tam PA [address] [place] [address] documented as of this encounter [...] documented as of this encounter Care Teams Director Of Medical Review Relationship Specialty Start Date End Date Rey Wyatt MD [address] [facility] [address] [place] [address] PCP - General 11/16/24 Angela Oleary, RN [facility] Registered Nurse Cardiology 02/17/24 documented as of this encounter
--- OUTSIDE RECORDS SUMMARY | 2024-11-20 21:18 | XMS_ITS | Encounter Summary ---
Author Organization Healthcare Address [address] [place] [address] Care Team Providers Care Employee Relations Consultant Name Role Phone Angela Oleary RN Unavailable Unavailable Rey Wyatt MD Primary Care Provider [phone] Reason for Visit * Reason Comments Multiple Complaints Encounter Details Date Type Department Care Team ([facility] st Contact Info) Description 11/20/2024 9:18 PM EDT - 11/20/2024 11:32 PM EDT Emergency [facility] Emergency Department [address] [place] [address] Leo Souza MD [address] [place] [address] Palpitations (Primary Dx) Discharge Disposition: [...] How often do you attend chur or confucianist services? Never 02/22/2024 Do you belong to any clubs o r organizations such as restoration groups, unions, fraternal or athletic groups, or [...] Recorded Patient Health Questionnaire-2 Score 0 11/16/2024 [facility] Occupational Stress Questionnaire [...] place to sleep or slept in a care home (including now)? No 02/09/2024 Ralls Depression Scale Answer Date Recorded Ralls Depression Scale Total 6 08/08/2024 The thought [...] drink first t casi in the morning ([employer]WL[employer]TAIN) to steady your nerves or to get [...] capsule 1 07/18/2024 Blood Glucose Monitoring Suppl ([employer] Verio Reflect) w/Device kit 04/14/2024 busPIRone (Buspar) [...] tablet 1 07/18/2024 Lancets (OneTouch Delica Plus [id number]) [facility] 04/14/2024 methIMAzole (Tapazole) 10 MG tablet Take 1 tablet by mouth daily. 60 tablet 11/11/2024 ondansetron (Zofran) 4 MG tablet Take 1 tablet (4 mg) by mouth every 8 (eight) hours if needed for nausea or vomiting. 3 tablet 5 07/18/2024 [employer]pers[employer] Verio test strip 1 each by Other [...] day. 30 tablet 1 07/18/2024 sodium chloride ([place]) 0.65 % nasal spray Administer 1 spray [...] 4 months currently. 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 [address] Cody Barnett MD [address] [place] [address] 02/10/2025 10:00 AM EDT Office Visit [facility] Endocrinology [address] [place] [id number] Rachel Khan PA [address] [facility] [address] [place] [address] 02/16/2025 1:20 PM EDT Office Visit [facility] [address] [facility] [place] [address] Courtney Torres MD [address] [facility] [address] [place] [address] 03/15/2025 3:30 PM EDT Consult [place] [facility] [address] [place] [address] Kendy Sanchez APRN [address] [place] [address] 04/17/2025 2:00 PM EDT Office Visit [facility] Medicine Specialties [address] [place] [address] Silverio Tam PA [address] [place] [address] Scheduled Orders Name Type Priority [...] LAB HEMATOLOGY METHOD 11/20/2024 9:23 PM EDT [facility] RBC Count 4.26 3.90 - 5.20 10*6/uL LAB HEMATOLOGY METHOD 11/20/2024 9:23 PM EDT [facility] HGB 11.8 11.2 - 15.7 g/dL LAB HEMATOLOGY METHOD 11/20/2024 9:23 PM EDT [facility] HCT 35.8 34.0 - 45.0 % LAB HEMATOLOGY METHOD 11/20/2024 9:23 PM EDT [facility] Platelet Count 197 155 - 369 10*3/uL LAB HEMATOLOGY METHOD 11/20/2024 9:23 PM EDT [facility] MCV 84 79 - 98 fL LAB HEMATOLOGY METHOD 11/20/2024 9:23 PM EDT [facility] MCH 27.7 26.0 - 32.0 pg LAB HEMATOLOGY METHOD 11/20/2024 9:23 PM EDT [facility] MCHC 33.0 30.7 - 35.5 g/dL LAB HEMATOLOGY METHOD 11/20/2024 9:23 PM EDT [facility] RDW 12.5 11.5 - 14.5 % LAB HEMATOLOGY METHOD 11/20/2024 9:23 PM EDT [facility] MPV 11.6 8.8 - 12.5 fL LAB HEMATOLOGY METHOD 11/20/2024 9:23 PM EDT [facility] nRBC 0.0 <=0.0 per 100 WBCs LAB HEMATOLOGY METHOD 11/20/2024 9:23 PM EDT [facility] Blood Venous blood specimen / Unknown Venipuncture / Unknown 11/20/2024 9:17 PM EDT 11/20/2024 9:20 PM EDT us Radha Trujillo DO LAB BLOOD ORDERABLES Final Re sult [facility] [address] [place] [address] * (ABNORMAL) Blood gas panel, venous (11/20/2024 9:17 PM EDT) pH, Venous 7.38 7.32 - 7.43 LAB HEMATOLOGY METHOD 11/20/2024 9:21 PM EDT [facility] pCO2, Venous 44 37 - 52 mmHg LAB HEMATOLOGY METHOD 11/20/2024 9:21 PM EDT [facility] pO2, Venous 26 25 - 40 mmHg LAB HEMATOLOGY METHOD 11/20/2024 9:21 PM EDT [facility] SO2, Measured, Venous 44(L) 65 - 80 % LAB HEMATOLOGY METHOD 11/20/2024 9:21 PM EDT [facility] Base Excess, Venous 0.2 -2.0 - 3.0 mmol/L LAB HEMATOLOGY METHOD 11/20/2024 9:21 PM EDT [facility] Bicarbonate, Calculated, Venous 26 22 - 26 mmol/L LAB HEMATOLOGY METHOD 11/20/2024 9:21 PM EDT [facility] Hematocrit, Whole Blood 37.4 34.0 - 45.0 % LAB HEMATOLOGY METHOD 11/20/2024 9:21 PM EDT [facility] Sodium, Whole Blood 141 136 - 145 mmol/L LAB HEMATOLOGY METHOD 11/20/2024 9:21 PM EDT [facility] Potassium, Whole Blood 4.0 3.6 - 4.9 mmol/L LAB HEMATOLOGY METHOD 11/20/2024 9:21 PM EDT [facility] Chloride, Whole Blood 110(H) 97 - 107 mmol/L LAB HEMATOLOGY METHOD 11/20/2024 9:21 PM EDT [facility] Glucose, Whole Blood 98 74 - 99 mg/dL LAB HEMATOLOGY METHOD 11/20/2024 9:21 PM EDT [facility] Lactate, Venous, Whole Blood 1.0 0.5 - 2.2 mmol/L LAB HEMATOLOGY METHOD 11/20/2024 9:21 PM EDT [facility] Ionized Calcium, Whole Blood 4.8 4.6 - 5.1 mg/dL LAB HEMATOLOGY METHOD 11/20/2024 9:21 PM EDT [facility] Blood Venous blood specimen / Unknown Venipuncture / Unknown 11/20/2024 9:17 PM EDT 11/20/2024 9:20 PM EDT us Radha Trujillo DO LAB BLOOD ORDERABLES Final Re sult [facility] [address] [place] [address] * (ABNORMAL) Free T4, Plasma (11/20/2024 9:17 PM EDT) Free T4, Plasma 2.4(H) 0.8 - 1.7 ng/dL 11/20/2024 9:47 PM EDT [facility] Blood Venous blood specimen / Unknown Venipuncture / Unknown 11/20/2024 9:17 PM EDT 11/20/2024 9:20 PM EDT Narrative [facility] - 11/20/2024 9:47 PM EDT Free T4 Trimester Specific Ranges 1st Trimester 0.9 - 1.50 ng/dL 2nd Trimester 0.7 - 1.40 ng/dL 3rd Trimester 0.7 - 1.24 ng/dL Convo LAB BLOOD ORDERABLES Final Re sult Performing Organization Address [facility] Co de Phone Number [facility] [address] [place] [address] * (ABNORMAL) Thyroid Stimulating Hormone, Plasma (11/20/2024 9:17 PM EDT) Thyroid Stimulating Hormone, Plasma <0.01(L) 0.40 - 4.20 uIU/mL 11/20/2024 10:02 PM EDT [facility] Blood Venous blood specimen / Unknown Venipuncture / Unknown 11/20/2024 9:17 PM EDT 11/20/2024 9:20 PM EDT Narrative [facility] - 11/20/2024 10:02 PM EDT Trimester Specific Ranges TSH ( IU/mL) 1st Trimester 0.1 - 3.0 2nd Trimester 0.19 - 4.06 3rd Trimester 0.3 - 3.7 Convo LAB BLOOD ORDERABLES Final Re sult Performing Organization Address City/[facility]/ZIP Co de Phone Number [facility] [address] [place] [address] * Troponin now and 120 min (11/20/2024 9:17 PM EDT) Troponin T, High Sensitivity, 0 Hour <6 <14 ng/L 11/20/2024 9:47 PM EDT [facility] Blood Venous blood specimen / Unknown Venipuncture / Unknown 11/20/2024 9:17 PM EDT 11/20/2024 9:20 PM EDT [employer] Radha Flaca Vonnie DO LAB BLOOD ORDERABLES Final Re sult Performing Organization Address City/[facility]/ZIP Co de Phone Number [facility] [address] [place] [address] * Phosphorus (11/20/2024 9:17 PM EDT) Phosphorus, Plasma 3.5 2.5 - 4.5 mg/dL 11/20/2024 10:02 PM EDT [facility] Blood Venous blood specimen / Unknown Venipuncture / Unknown 11/20/2024 9:17 PM EDT 11/20/2024 9:20 PM EDT [employer] Radha Flaca [employer] DO LAB BLOOD ORDERABLES Final Re sult Performing Organization Address [facility]/ZIP Co de Phone Number [facility] [address] [place] [address] * Magnesium (11/20/2024 9:17 PM EDT) Magnesium, Plasma 2.1 1.9 - 2.4 mg/dL 11/20/2024 10:02 PM EDT [facility] Blood Venous blood specimen / Unknown Venipuncture / Unknown 11/20/2024 9:17 PM EDT 11/20/2024 9:20 PM EDT [employer] DO LAB BLOOD ORDERABLES Final Re sult Performing Organization Address [facility]/ZIP Co de Phone Number [facility] [address] [place] [address] * (ABNORMAL) CMP (11/20/2024 9:17 PM EDT) Glucose, Plasma 100(H) 74 - 99 mg/dL 11/20/2024 10:02 PM EDT [facility] BUN, Plasma 12 7 - 21 mg/dL 11/20/2024 10:02 PM EDT [facility] Creatinine, Plasma 0.89 0.60 - 1.10 mg/dL 11/20/2024 10:02 PM EDT [facility] BUN/Creatinine Ratio 13 11/20/2024 10:02 PM EDT [facility] Sodium, Plasma 143 136 - 145 mmol/L 11/20/2024 10:02 PM EDT [facility] Potassium, Plasma 4.2 3.6 - 4.9 mmol/L 11/20/2024 10:02 PM EDT [facility] Chloride, Plasma 106 97 - 107 mmol/L 11/20/2024 10:02 PM EDT [facility] CO2, Plasma 24 22 - 29 mmol/L 11/20/2024 10:02 PM EDT [facility] Anion Gap 13 6 - 16 mmol/L 11/20/2024 10:02 PM EDT [facility] Total Calcium, Plasma 9.8 8.9 - 10.2 mg/dL 11/20/2024 10:02 PM EDT [facility] Total Protein 7.4 6.3 - 7.9 g/dL 11/20/2024 10:02 PM EDT [facility] Albumin, Plasma 4.4 3.5 - 5.2 g/dL 11/20/2024 10:02 PM EDT [facility] AST, Plasma 13 10 - 35 U/L 11/20/2024 10:02 PM EDT [facility] ALT, Plasma 14 10 - 35 U/L 11/20/2024 10:02 PM EDT [facility] Alkaline Phosphatase, Plasma 53 35 - 104 U/L 11/20/2024 10:02 PM EDT [facility] Total Bilirubin, Plasma 1.0 0.2 - 1.1 mg/dL 11/20/2024 10:02 PM EDT [facility] eGFRcr 91.8 mL/min/1.7 3m*2 11/20/2024 10:02 PM EDT [facility] Comment:Reported eGFRcr in m L/min/1.73m2 is based the CKD-EPI 2020 equation that does not use a race coefficient. Blood Venous blood specimen / Unknown Venipuncture / Unknown 11/20/2024 9:17 PM EDT 11/20/2024 9:20 PM EDT [employer] DO LAB BLOOD ORDERABLES Final Re sult Performing Organization Address [facility]/ZIP Co de Phone Number [facility] [address] [place] [address] * hCG qualitative (11/20/2024 9:17 PM EDT) Test Negative Negative 11/20/2024 10:02 PM EDT [facility] Blood Venous blood specimen / Unknown Venipuncture / Unknown 11/20/2024 9:17 PM EDT 11/20/2024 9:20 PM EDT Narrative [facility] - 11/20/2024 10:02 PM EDT Reference Range: Males and non- females: Negative. us [employer] DO LAB BLOOD ORDERABLES Final Re sult Performing Organization Address [facility] de Phone Number [facility] [address] [place] [address] * EKG now - STAT (adult) (11/20/2024 8:52 PM EDT) EKG DIAGNOSIS CLASS Abnormal MUSE ECG Ventricular Rate 83 BPM MUSE ECG Atrial Rate 83 BPM MUSE ECG FL Interval 128 ms MUSE ECG QRSD Interval 72 ms MUSE ECG QT Interval 342 ms MUSE ECG QTC Interval 401 ms MUSE ECG P [place] 60 degrees MUSE ECG R [place] 62 degrees MUSE ECG T Wave [place] 21 degrees MUSE ECG Diagnosis Sinus rhythm [...] ORDERABLES Final Resu lt Performing Organization Address [facility] Co de Phone Number MUSE ECG documented [...] documented as of this encounter Care Teams Employee Relations Consultant Relationship Specialty Start Date End Date Rey Wyatt MD [address] [place] [address] PCP - General 11/16/24 Angela Oleary, RN [facility] Registered Nurse Cardiology 02/17/24 documented as of this encounter
--- OUTSIDE RECORDS SUMMARY | 2024-12-07 07:03 | XMS_ITS | Encounter Summary ---
Author Organization [facility] Address [address] [place] [address] Care Team Providers Care Communication Professor Name Role Phone Angela Oleary RN Unavailable Unavailable Rey Wyatt MD Primary Care Provider [phone] Reason for Referral * Imaging (Routine) - Closed Specialty Diagnoses / Procedures Referred By Mili joe Referred To Contact Gastroenterology Diagnoses Hematochezia Abdominal pain, epigastric Procedures Patency Capsule Silverio Tam PA [address] [place] [address] Phone: tel: fax: Referral ID Status Reason Start Date Expiration Date V isits Requested Visits Authorized [id number] Closed Specialty Services Required 10/17/2024 04/18/2026 1 1 Reason for Visit * Imaging (Routine) - Closed Specialty Diagnoses / Procedures Referred By Contac t Referred To Contact Gastroenterology Diagnoses Hematochezia Abdominal pain, epigastric Procedures Patency Capsule Silverio Tam PA [address] [place] [address] Phone: tel: fax: Referral ID Status Reason Start Date Expiration Date V isits Requested Visits Authorized [id number] Closed Specialty Services Required 10/17/2024 04/18/2026 1 1 Encounter Details Date Type Department Care Team (Latest Contact Info) Description 12/07/2024 7:03 AM EDT - 12/07/2024 11:59 PM EDT Hospital Encounter [facility] [address] [place] [address] Estuardo Jon MD [address] [place] [address] Diarrhea, unspecified type (Primary Dx); [...] often do you attend chur ch or caodaism services? Never 02/22/2024 Do you belong to any clubs o r organizations such as buddhism groups, unions, fraternal or athletic groups, or [...] Recorded Patient Health Questionnaire-2 Score 0 12/15/2024 [employer] [facility] Occupat [facility] - Occupational Stress Questionnaire Answer Date Recorded [...] place to sleep or slept in a fpc (including now)? No 02/09/2024 [place]ote Depression Scale Answer Date Recorded [place] Depression Scale Total 6 08/08/2024 The thought [...] drink first t casi in the morning (EYE-IN SERVICE EDUCATOR) to steady your nerves or to get rid of a hangover? 0 07/16/2024 CAGE Questionnaire Score 0 024 Utilities Answer Date Recorded In the past 12 months has th e [employer], gas, oil, or water [employer] threatened to shut off services in your [...] capsule 1 07/18/2024 Blood Glucose Monitoring Suppl ([employer] Verio Reflect) w/Device kit 04/14/2024 busPIRone (Buspar) [...] mild pain. 30 tablet 1 07/18/2024 Lancets ([employer] Delica Plus [id number]) [facility] 04/14/2024 methIMAzole (Tapazole) 10 MG tablet Take 1 tablet by mouth daily. 60 tablet 11/11/2024 ondansetron (Zofran) 4 MG tablet Take 1 tablet (4 mg) by mouth every 8 (eight) hours if needed for nausea or vomiting. 3 tablet 5 07/18/2024 [employer] Verio test strip 1 each by Other [...] day. 30 tablet 1 07/18/2024 sodium chloride ([place] Nasal [place]) 0.65 % nasal spray Administer 1 spray [...] EDT Appointment [facility] [address] [place] [phone] Cody Barnett MD [address] [facility] [address] [place] [phone] 02/10/2025 10:00 AM EDT [facility] [address] [place] [address] Rachel Khan PA [address] [place] [address] 02/16/2025 1:20 PM EDT Office Visit [facility] [place] [address] [facility] [place] [address] Courtney Torres MD [address] [place] [address] 03/15/2025 3:30 PM EDT Consult [facility] [address] [place] [address] Kendy Sanchez, MONTESSORI PRESCHOOL TEACHER [address] [place] [address] 04/17/2025 2:00 PM EDT Office Visit [facility] Medicine Specialties [address] [place] [address] Silverio Tam PA [address] [place] [address] documented as of this encounter [...] Region Laterality Modality Body Digital Radiogra phy us Estuardo Jon MD IMG XR PROCEDURES Final [...] documented as of this encounter Care Teams Communication Professor Relationship Specialty Start Date End Date Rey Wyatt MD [address] [place] [address] PCP - General 11/16/24 Angela Oleary, RN [facility] Registered Nurse Cardiology 02/17/24 documented as of this encounter
--- OUTSIDE RECORDS SUMMARY | 2024-12-15 14:30 | XMS_ITS | Encounter Summary ---
Author Organization Address [address] [place] [address] Care Team Providers Care Medical Laboratory Specialist Name Role Phone Angela Oleary RN Unavailable Unavailable Rey Wyatt MD Primary Care Provider [phone] Reason for Referral * Consultation (Routine) - Authorized Specialty Diagnoses / Procedures Referred By Mili joe Referred To Contact Diagnoses Abdominal pain, epigastric Diarrhea, unspecified type Postural orthostatic tachycardia syndrome (POTS) Hematochezia Silverio Tam PA [id number] [place] [address] Phone: tel: fax: Referral ID Status Reason Start Date Expiration Date V isits Requested Visits Authorized [id number] Authorized 12/15/2024 06/16/2026 1 1 Reason for Visit * Reason Comments Hematochezia Encounter Details Date Type Department Care Team (Late st Contact Info) Description 12/15/2024 2:30 PM EDT [facility] Visit [facility] [address] [place] [address] Silverio Tam PA [address] [facility] [address] [place] [address] Weight loss (Primary Dx); Abdominal [...] week 02/22/2024 How often do you attend [facility] or protestant services? Never 02/22/2024 Do you belong to any clubs o r organizations such as druze groups, unions, fraternal or athletic groups, or [...] Recorded Patient Health Questionnaire-2 Score 0 12/15/[address] [facility] - Occupational Stress Questionnaire Answer Date [...] in a longterm (including now)? No 02/09/2024 Success Depression Scale Answer Date Recorded Success Depression Scale Total 6 08/08/2024 The thought [...] drink first t casi in the morning (EYE-CONSULTING SERVICES ASSOCIATE) to steady your nerves or to get rid of a hangover? 0 07/16/2024 CAGE Questionnaire Score 0 024 Utilities Answer Date Recorded In the past 12 months has th e [employer], gas, oil, or water company threatened to [...] disease. She is supposed also be seeing [facility] for her POTs; but may also be [...] min Stress: No Stress Concern Present (02/22/2024) [employer] [place] [employer] [facility] - Occupational Stress Questionnaire Feeling of Stress : Not at all Social Connections: Moderately Isolated (02/22/2024) Social Connection and Isolation Panel [NHANES] Frequency of Communication with Friends and Family: More than three times a week Frequency of Social Gatherings with Friends and Family: Once a week Attends Worship Services: Never Active Member of Clubs or [...] day before colonoscopy Blood Glucose Monitoring Suppl ([employer] Verio Reflect) w/Device kit busPIRone (BUSPAR) 5 [...] mg, Oral, Every 6 hours PRN Lancets (DailyStrengthTouch Delica Plus Clovmj61V) misc methIMAzole (TAPAZOLE) 10 mg, Oral, Daily ondansetron (ZOFRAN) 4 mg, Oral, Every 8 hours PRN ondansetron ODT (ZOFRAN-ODT) 4 mg, Oral, Every 8 hours PRN DailyStrengthTouch Verio test strip 1 each, As needed [...] tablet 1 tablet, Oral, Daily sodium chloride ([place] Nasal [place]) 0.65 % nasal spray 1 spray, Each [...] 04/26/2002 Influenza, injectable, quadrivalent, preservative free 04/29/2023 [employer] COVID-19 Vaccine (Blue Cap) 18+ 02/21/2021 MMR [...] EDT Appointment [facility] [address] [place] [address] Cody Barnett MD [address] [facility] [address] [place] [id number] 02/10/2025 10:00 AM EDT Office Visit [facility] Endocrinology [address] [place] [phone] Rachel Khan PA [address] [facility] [address] [place] [address] 02/16/2025 1:20 PM EDT Office Visit [facility] [place] [address] [facility] [place] [address] Courtney Torres MD [address] [facility] [address] [place] [address] 03/15/2025 3:[address] [facility] [address] [place] [address] Kendy Sanchez, CELLULAR EQUIPMENT INSTALLER [address] [place] [address] 04/17/2025 2:00 PM EDT Office Visit [facility] Medicine Specialties [address] [place] [address] Silverio Tam, PA [address] [place] [address] Scheduled Referrals Name Type Priority [...] (CMV) Quantitative PCR (12/15/2024 3:29 PM EDT) Cytomegalovirus (CMV) Quantitative Interpretation Not Detected Not Detected 12/19/2024 2:26 PM EDT [facility] Blood Venous blood specimen / Unknown Venipuncture / Unknown 12/15/2024 3:29 PM EDT 12/15/2024 3:30 PM EDT Narrative [facility] - 12/19/2024 2:26 PM EDT The [...] assay is FDA approved for clinical use. [facility] LAB BLOOD ORDERABLES Final Res ult Performing Organization Address [facility] Co de Phone Number [facility] [address] [place] [address] * T3 (12/15/2024 3:29 PM EDT) Pathologist [facility] T3, Serum 177 87 - 187 ng/dL 12/15/2024 4:54 PM EDT [facility] Blood Venous blood specimen / Unknown Venipuncture / Unknown 12/15/2024 3:29 PM EDT 12/15/2024 3:30 PM EDT [facility] LAB BLOOD ORDERABLES Final Res ult Performing Organization Address [facility] de Phone Number [facility] [address] [place] [address] * (ABNORMAL) CBC and Differential (12/15/2024 3:29 PM EDT) [facility] WBC Count 5.38 3.70 - 10.30 10*3/uL LAB HEMATOLOGY METHOD 12/15/2024 4:38 PM EDT [facility] RBC Count 4.81 3.90 - 5.20 10*6/uL LAB HEMATOLOGY METHOD 12/15/2024 4:38 PM EDT [facility] HGB 12.6 11.2 - 15.7 g/dL LAB HEMATOLOGY METHOD 12/15/2024 4:38 PM EDT [facility] HCT 39.7 34.0 - 45.0 % LAB HEMATOLOGY METHOD 12/15/2024 4:38 PM EDT [facility] Platelet Count 311 155 - 369 10*3/uL LAB HEMATOLOGY METHOD 12/15/2024 4:38 PM EDT [facility] MCV 83 79 - 98 fL LAB HEMATOLOGY METHOD 12/15/2024 4:38 PM EDT [facility] MCH 26.2 26.0 - 32.0 pg LAB HEMATOLOGY METHOD 12/15/2024 4:38 PM EDT [facility] MCHC 31.7 30.7 - 35.5 g/dL LAB HEMATOLOGY METHOD 12/15/2024 4:38 PM EDT [facility] RDW 12.2 11.5 - 14.5 % LAB HEMATOLOGY METHOD 12/15/2024 4:38 PM EDT [facility] MPV 11.2 8.8 - 12.5 fL LAB HEMATOLOGY METHOD 12/15/2024 4:38 PM EDT [facility] nRBC 0.0 <=0.0 per 100 WBCs LAB HEMATOLOGY METHOD 12/15/2024 4:38 PM EDT [facility] Differential Type Automated LAB HEMATOLOGY METHOD 12/15/2024 4:38 PM EDT [facility] Neutrophils % 61 % LAB HEMATOLOGY METHOD 12/15/2024 4:38 PM EDT [facility] Lymphocytes % 32 % LAB HEMATOLOGY METHOD 12/15/2024 4:38 PM EDT [facility] Monocytes % 5 % LAB HEMATOLOGY METHOD 12/15/2024 4:38 PM EDT [facility] Eosinophils % 1 % LAB HEMATOLOGY METHOD 12/15/2024 4:38 PM EDT [facility] Basophils % 1 % LAB HEMATOLOGY METHOD 12/15/2024 4:38 PM EDT [facility] Immature Granulocytes % 0 % LAB HEMATOLOGY METHOD 12/15/2024 4:38 PM EDT [facility] Neutrophils Absolute 3.33 1.60 - 6.10 10*3/uL LAB HEMATOLOGY METHOD 12/15/2024 4:38 PM EDT [facility] Lymphocytes Absolute 1.70 1.20 - 3.90 10*3/uL LAB HEMATOLOGY METHOD 12/15/2024 4:38 PM EDT [facility] Monocytes Absolute 0.25(L) 0.30 - 0.90 10*3/uL LAB HEMATOLOGY METHOD 12/15/2024 4:38 PM EDT [facility] Eosinophils Absolute 0.03 0.00 - 0.50 10*3/uL LAB HEMATOLOGY METHOD 12/15/2024 4:38 PM EDT [facility] Basophils Absolute 0.05 0.00 - 0.10 10*3/uL LAB HEMATOLOGY METHOD 12/15/2024 4:38 PM EDT [facility] Immature Granulocytes Absolute 0.02 0.00 - 0.06 10*3/uL LAB HEMATOLOGY METHOD 12/15/2024 4:38 PM EDT [facility] Blood Venous blood specimen / Unknown Venipuncture / Unknown 12/15/2024 3:29 PM EDT 12/15/2024 3:30 PM EDT Narrative [facility] - 12/15/2024 4:38 PM EDT Therapeutic decision making should be based on absolute values, rather than percentages. us [facility] LAB BLOOD ORDERABLES Final Res ult [facility] [address] [place] [address] * (ABNORMAL) Comprehensive Metabolic Panel, Plasma (12/15/2024 3:29 PM EDT) Glucose, Plasma 84 74 - 99 mg/dL 12/15/2024 4:54 PM EDT [facility] BUN, Plasma 8 7 - 21 mg/dL 12/15/2024 4:54 PM EDT [facility] Creatinine, Plasma 0.60 0.60 - 1.10 mg/dL 12/15/2024 4:54 PM EDT [facility] BUN/Creatinine Ratio 13 12/15/2024 4:54 PM EDT [facility] Sodium, Plasma 140 136 - 145 mmol/L 12/15/2024 4:54 PM EDT [facility] Potassium, Plasma 4.1 3.6 - 4.9 mmol/L 12/15/2024 4:54 PM EDT [facility] Chloride, Plasma 105 97 - 107 mmol/L 12/15/2024 4:54 PM EDT [facility] CO2, Plasma 21(L) 22 - 29 mmol/L 12/15/2024 4:54 PM EDT [facility] Anion Gap 14 6 - 16 mmol/L 12/15/2024 4:54 PM EDT [facility] Total Calcium, Plasma 9.4 8.9 - 10.2 mg/dL 12/15/2024 4:54 PM EDT [facility] Total Protein 8.1(H) 6.3 - 7.9 g/dL 12/15/2024 4:54 PM EDT [facility] Albumin, Plasma 4.6 3.5 - 5.2 g/dL 12/15/2024 4:54 PM EDT [facility] AST, Plasma 16 10 - 35 U/L 12/15/2024 4:54 PM EDT [facility] ALT, Plasma 23 10 - 35 U/L 12/15/2024 4:54 PM EDT [facility] Alkaline Phosphatase, Plasma 58 35 - 104 U/L 12/15/2024 4:54 PM EDT [facility] Total Bilirubin, Plasma 0.7 0.2 - 1.1 mg/dL 12/15/2024 4:54 PM EDT [facility] eGFRcr 127.1 mL/min/1.7 3m*2 12/15/2024 4:54 PM EDT [facility] Comment:Reported eGFRcr in m L/min/1.73m2 is based the CKD-EPI 2020 equation that does not use a race coefficient. Blood Venous blood specimen / Unknown Venipuncture / Unknown 12/15/2024 3:29 PM EDT 12/15/2024 3:30 PM EDT us [facility] LAB BLOOD ORDERABLES Final Res ult [facility] [address] [place] [address] * Prothrombin Time/INR (12/15/2024 3:29 PM EDT) Prothrombin Time 13.7 12.0 - 14.3 sec LAB COAGULATION METHOD 12/15/2024 5:05 PM EDT [facility] INR 1.0 0.9 - 1.1 LAB COAGULATION METHOD 12/15/2024 5:05 PM EDT [facility] Blood Venous blood specimen / Unknown Venipuncture / Unknown 12/15/2024 3:29 PM EDT 12/15/2024 3:30 PM EDT Narrative [facility] - 12/15/2024 5:05 PM EDT OPTIMAL INR RANGES FOR PATIENT ON ORAL ANTICOAGULANT THERAPY Prevention of venous thromboembolism INR 2.0 to 3.0 In patients with heart disease: Atrial fibrillation INR 2.0 to 3.0 Valvular heart disease INR 2.0 to 3.0 Tissue heart valves INR 2.0 to 3.0 Mechanical prosthetic valves INR 2.5 to 3.5 Prevention of recurrent DC INR 2.5 to 3.5 [facility] LAB BLOOD ORDERABLES Final Res ult Performing Organization Address City/[facility]/ZIP Co de Phone Number [facility] [address] [place] [address] * (ABNORMAL) Brayan Henson IgG Ab (12/15/2024 3:29 PM EDT) EBV ANTIBODY TO VIRAL CAPSID ANTIGEN IGG 185.0(H) 0.0 - 21.9 U/mL 12/18/2024 11:11 AM EDT [facility]) Blood Venous blood specimen / Unknown Venipuncture / Unknown 12/15/2024 3:29 PM EDT 12/15/2024 3:30 PM EDT Narrative [facility] [employer] [facility]) - 12/18/2024 11:11 AM EDT INTERPRETIVE INFORMATION: Brayan-Henson Virus Antibody to Viral Capsid Antigen, IgG 17.9 U/mL or less.......Not Detected 18.0-21.9 U/mL..........Indeterminate - Repeat testing in 10-14 days may be helpful. 22.0 U/mL or greater....Detected Performed By: [facility] [address] [place] [address] Luggage Liner: Wilber Pardo MD, PhD CLIA Number: [id number] [facility] LAB BLOOD ORDERABLES Final Res ult Performing Organization Address City/[facility]/ZIP Co de Phone Number [facility]) [address] [place] [address] * Brayan-Henson virus VCA, IgM (12/15/2024 3:29 PM EDT) EBV ANTIBODY TO VIRAL CAPSID ANTIGEN IGM <10.0 0.0 - 43.9 U/mL 12/18/2024 11:09 AM EDT [facility]) Blood Venous blood specimen / Unknown Venipuncture / Unknown 12/15/2024 3:29 PM EDT 12/15/2024 3:30 PM EDT Narrative [facility]) - 12/18/2024 11:09 AM EDT INTERPRETIVE INFORMATION: Brayan-Henson Virus Antibody to Viral Capsid Antigen, IgM 35.9 U/mL or less.......Not Detected 36.0-43.9 U/mL..........Indeterminate - Repeat testing in 10-14 days may be helpful. 44.0 U/mL or greater....Detected Performed By: [facility] [address] [place] [address] Luggage Liner: Wilber Pardo MD, PhD CLIA Number: [id number] us [facility] LAB BLOOD ORDERABLES Final Res ult [facility]) [address] [place] [address] documented in this encounter Visit Diagnoses Diagnosis [...] documented as of this encounter Care Teams Medical Laboratory Specialist Relationship Specialty Start Date End Date Rey Wyatt MD [address] [facility] [address] [place] [address] PCP - General 11/16/24 Angela Oleary, RN [facility] Registered Nurse Cardiology 02/17/24 documented as of this encounter
--- NOTE | 2025-01-13 15:15 | MR_ITS ---
FINAL REPORT TECHNIQUE: Multiplanar and multisequence imaging of the brain was obtained without contrast. CLINICAL HISTORY: POTS, HEADACHES FINDINGS: Brain parenchymal: There is no mass effect or midline shift. There are no areas of abnormal signal intensity.The cerebellum and brainstem are without acute abnormality. Ventricles: The ventricles are symmetric in size and configuration without hydrocephalus. Extra-axial spaces: No extra-axial fluid collections. Diffusion imaging: No areas of restricted diffusion to suggest acute infarct. Flow voids: Flow voids within the major intracranial vessels are preserved. Soft tissues: There is a small amount of fluid in the right mastoid air cells. IMPRESSION: No acute intracranial abnormality. Reviewed, Interpreted and Dictated by Desi Horowitz MD Transcribed by Mariah Coleman Authenticated and [facility]
--- OUTSIDE RECORDS SUMMARY | 2025-01-13 15:34 | XMS_ITS | Encounter Summary ---
Author Organization Healthcare Address [address] [place] [address] Care Team Providers Care Cardiac Sonographer Name Role Phone Molly Louis MD Primary Care Provider [phone] Angela Oleary RN Unavailable Unavailable Rey Wyatt MD Primary Care Provider [phone] Reason for Visit * Reason Onset Date Comments Med Refill 03/23/2024 Encounter Details Date Type Department Care Team ([facility] Contact Info) Description 03/23/2024 Refill Medical Office Building Obstetrics and Gynecology [address], [address] [place] [address] Shalonda Davies, AIRCRAFT CLEANER [address] [place] [address] Social History Tobacco Use Types [...] How often do you attend chur or mandaen services? Never 02/22/2024 Do you belong to any clubs o r organizations such as anabaptist groups, unions, fraternal or athletic groups, or [...] Recorded Patient Health Questionnaire-2 Score 0 02/17/2024 [facility] of Occupat ional Health - Occupational Stress [...] a senior living (including now)? No 02/09/2024 [place] Depression Scale Answer Date Recorded [place] Depression Scale Total 8 02/22/2024 The thought [...] drink first t casi in the morning (EYE-DIRECTOR MULTIPLE SCLEROSIS CENTER) to steady your nerves or to get [...] EDT Appointment [facility] [address] [place] [address] Cody Barnett MD [address] [place] [address] 02/10/2025 10:00 AM EDT Office [facility] [address] [place] [address] Rachel Khan PA [address] [facility] [address] [place] [address] 02/16/2025 1:20 PM EDT Office Visit [facility] [place] [address], [address] [place] [address] Courtney Torres MD [address] [place] [address] 03/15/2025 3:30 PM EDT Consult [facility] [address], 1st [place] [address] Kendy Sanchez APRN [address] [place] [address] 04/17/2025 2:00 PM EDT Office Visit [facility]ties [address], 2[address] [place] [address] Silverio Tam PA [address] [place] [address] documented as of this encounter [...] documented as of this encounter Care Teams Cardiac Sonographer Relationship Specialty Start Date End Date Molly Louis MD [address] [place] [address] PCP - General Family Medicine 02/09/24 11/15/24 Rey Wyatt MD [address] [place] [address] PCP - General 11/16/24 Angela Oleary, RN [facility] Registered Nurse Cardiology 02/17/24 documented as of this encounter
--- OUTSIDE RECORDS SUMMARY | 2025-01-13 15:35 | XMS_ITS | Encounter Summary ---
Author Organization Healthcare Address [address] [place] [address] Care Team Providers Care Gill Tender Name Role Phone Angela Oleary RN Unavailable Unavailable Rey Wyatt MD Primary Care Provider Encounter Details Date Type Department Care Team (Late st Contact Info) Description 12/16/2024 Results Follow-Up [facility] Endocrinology [address] [place] [address] Abundio Kyle MBBS [address] [id number] Social History Tobacco Use Types Packs/Day Years [...] 0 12/15/2024 [facility] Occupat ional [facility] - Occupational Stress Questionnaire Answer Date [...] in a longterm (including now)? No 02/09/2024 [place] Depression Scale Answer Date Recorded [place] Depression Scale Total 6 08/08/2024 The thought [...] drink first t casi in the morning (EYE-TRADITIONAL MAORI HEALTH PRACTITIONER) to steady your nerves or to get [...] EDT Appointment [facility] Endoscopy [address] [place] [address] Cody Barnett MD [address] [place] [address] 02/10/2025 10:00 AM EDT Office Visit [facility] Endocrinology [address] [place] [phone] Rachel Khan PA [address] [facility] [address] [place] [address] 02/16/2025 1:20 PM EDT Office Visit [facility] [place] [address], [address] [place] [address] Courtney Torres MD [address] [place] [address] 03/15/2025 3:30 PM EDT Consult [facility] [address], 1[address] [place] [address] Kendy Sanchez, TRISTAN [address] [place] [address] 04/17/2025 2:00 PM EDT Office Visit [facility] Medicine Specialties [address], 2[address] [place] [address] Silverio Tam PA [address] [place] [address] Scheduled Orders Name Type Priority [...] documented as of this encounter Care Teams Gill Tender Relationship Specialty [place] [address] [place] [address] PCP - General 11/16/24 Angela Oleary, RN [facility] Registered Nurse Cardiology 02/17/24 documented as of this encounter
--- OUTSIDE RECORDS SUMMARY | 2025-01-13 15:35 | XMS_ITS | Encounter Summary ---
Author Organization Healthcare Address [address] [place] [address] Care Team Providers Care Electric Sign Wirer Name Role Phone Angela Oleary RN Unavailable Unavailable Rey Wyatt MD Primary Care Provider [phone] Encounter Details Date Type Department Care Team [...] week 02/22/2024 How often do you attend [facility] or sabianist services? Never 02/22/2024 Do you [...] Recorded Patient Health Questionnaire-2 Score 0 11/16/2024 [facility] of Occupat ional Health - Occupational Stress [...] in a snf (including now)? No 02/09/2024 [place] Depression Scale Answer Date Recorded [place] Depression Scale Total 6 08/08/2024 The thought [...] drink first t casi in the morning (EYE-STEWARDESSES TEACHER) to steady your nerves or to [...] Appointment [facility] Endoscopy [address] [place] [phone] Cody Barnett MD [address] [place] [address] 02/10/2025 10:00 AM EDT [facility] [address] [place] [address] Rachel Khan PA [address] [place] [address] 02/16/2025 1:20 PM EDT Office Visit [facility] [place] [address], [address] [place] [address] Courtney Torres MD [address] [place] [address] 03/15/2025 3:30 PM EDT Consult [facility] [address], 1st [place] [address] Kendy Sanchez, LOADING MACHINE OPERATOR HELPER [address] [place] [address] 04/17/2025 2:00 PM EDT Office Visit [facility] Medicine Specialties [address], 2nd [place] [address] Silverio Tam PA [address] [place] [address] documented as of this encounter [...] as of this encounter Care Teams Electric Sign Wirer Relationship Specialty Start Date End Date Rey Wyatt MD [address] [place] [address] PCP - General 11/16/24 Angela Oleary, RN [facility] Registered Nurse Cardiology 02/17/24 documented as of this encounter
--- OUTSIDE RECORDS SUMMARY | 2025-01-13 15:35 | XMS_ITS | Encounter Summary ---
Author Organization Healthcare Address [address] [place] [address] Care Team Providers Care Fiberglass Luggage Molder Name Role Phone Angela Oleary RN Unavailable Unavailable Rey Wyatt MD Primary Care Provider [phone] Encounter Details Date Type Department Care Team [...] 02/22/2024 How often do you attend [facility] or restorationist services? Never 02/22/2024 Do you belong to [...] Questionnaire-2 Score 0 11/16/2024 [facility] of Occupat ional Health - [...] in a usp (including now)? No 02/09/2024 [place] Depression Scale Answer Date Recorded [place] Depression Scale Total 6 08/08/2024 The thought [...] drink first t casi in the morning (EYE-POLYMER MATERIALS CONSULTANT) to steady your nerves or to get rid of a hangover? 0 07/16/2024 CAGE Questionnaire Score 0 024 Utilities Answer Date Recorded In the past 12 months has th e [employer], gas, oil, or water company threatened to [...] Appointment [facility] Endoscopy [address] [place] [address] Cody Barnett MD [address] [place] [address] 02/10/2025 10:00 AM EDT [facility] [address] [place] [address] Rachel Khan PA [address] [place] [address] 02/16/2025 1:20 PM EDT Office Visit [facility] [place] [address], [address] [place] [address] Courtney Torres MD [address] [place] [address] 03/15/2025 3:30 PM EDT Consult [facility] [address], 1[address] [place] [address] Kendy Sanchez APRN [address] [place] [address] 04/17/2025 2:00 PM EDT Office Visit [facility] Medicine Specialties [address], 2[address] [place] [address] Silverio Tam PA [address] [place] [address] documented as of this encounter [...] documented as of this encounter Care Teams Fiberglass Luggage Molder Relationship Specialty Start Date End Date Rey Wyatt MD [address] [place] [address] PCP - General 11/16/24 Angela Oleary, RN [facility] Registered Nurse Cardiology 02/17/24 documented as of this encounter
--- OUTSIDE RECORDS SUMMARY | 2025-01-13 15:35 | XMS_ITS | Encounter Summary ---
Author Organization Healthcare Address [address] [place] [address] Care Team Providers Care Production Solderer Name Role Phone Angela Oleary RN Unavailable Unavailable Rey Wyatt MD Primary Care Provider [phone] Encounter Details Date Type Department Care Team [...] 02/22/2024 How often do you attend [facility] or anabaptist services? Never 02/22/2024 Do you belong to [...] Patient Health Questionnaire-2 Score 0 11/16/2024 [facility] of Occupat ional [...] a nursing home (including now)? No 02/09/2024 [place] Depression Scale Answer Date Recorded [place] Depression Scale Total 6 08/08/2024 The thought [...] drink first t casi in the morning (EYE-FABRICATOR ASSEMBLER METAL PRODUCTS) to steady your nerves or to get rid of a hangover? 0 07/16/2024 CAGE Questionnaire Score 0 024 Utilities Answer Date Recorded In the past 12 months has th e [employer], gas, oil, or water company threatened to [...] EDT Appointment [facility] Endoscopy [address] [place] [address] Cody Barnett MD [address] [place] [address] 02/10/2025 10:00 AM EDT Office Visit [facility] Endocrinology [address] [place] [address] Rachel Khan PA [address] [facility] [address] [place] [address] 02/16/2025 1:20 PM EDT Office Visit [facility] [place] [address] [facility], [address] [place] [address] Courtney Torres MD [address] [facility] [address] [place] [address] 03/15/2025 3:30 PM EDT Consult [facility] [address], 1[address] [place] [address] Kendy Sanchez APRN [address] [place] [address] 04/17/2025 2:00 PM EDT Office Visit [facility] Medicine Specialties [address], 2[address] [place] [address] Silverio Tam PA [address] [facility] [address] [place] [address] documented as of this encounter Goals Goal [...] documented as of this encounter Care Teams Production Solderer Relationship Specialty Start Date End Date Rey Wyatt MD [address] [facility] [address] [place] [address] PCP - General 11/16/24 Angela Oleary, RN [facility] Registered Nurse Cardiology 02/17/24 documented as of this encounter
--- OUTSIDE RECORDS SUMMARY | 2025-01-13 15:35 | XMS_ITS | Encounter Summary ---
Author Organization Healthcare Address [address] [place] [address] Care Team Providers Care Hair Dresser Name Role Phone Angela Oleary RN Unavailable Unavailable Rey Wyatt MD Primary Care Provider Encounter Details Date Type Department Care Team (Late st Contact Info) Description 12/09/2024 Orders Only [facility] Medicine Specialties [address], 2nd [place] [address] Silverio Tam PA [address] [place] [address] Social History Tobacco Use Types [...] often do you attend chur ch or catholic services? Never 02/22/2024 Do you belong [...] Recorded Patient Health Questionnaire-2 Score 0 11/16/2024 [facility] - Occupational Stress Questionnaire Answer [...] in a residential (including now)? No 02/09/2024 [place] Depression Scale Answer Date Recorded [place] Depression Scale Total 6 08/08/2024 The thought [...] drink first t casi in the morning (EYE-COMPUTER AIDED DESIGN TECHNICIAN) to steady your nerves or to get rid of a hangover? 0 07/16/2024 CAGE Questionnaire Score 0 024 Utilities Answer Date Recorded In the past 12 months has th e [employer], gas, oil, or water company threatened to [...] EDT Appointment [facility] S Endoscopy [address] [place] [address] Cody Barntet MD [address] [place] [address] 02/10/2025 10:00 AM EDT Office Visit [facility] Endocrinology [address] [place] [address] Rachel Khan PA [address] [facility] [address] [place] [address] 02/16/2025 1:20 PM EDT Office Visit [facility] [place] [address] [facility], [address] [place] [address] Courtney Torres MD [address] [facility] [address] [place] [address] 03/15/2025 3:30 PM EDT Consult [facility] [address], 1st [place] [address] Kendy Sanchez APRN [address] [place] [address] 04/17/2025 2:00 PM EDT Office Visit [facility] Medicine Specialties [address], 2nd [place] [address] Silverio Tam PA [address] [place] [address] documented as of this encounter [...] documented as of this encounter Care Teams Hair Dresser Relationship Specialty Start Date End Date Rey Wyatt MD [address] [place] [address] PCP - General 11/16/24 Angela Oleary, RN [facility] Registered Nurse Cardiology 02/17/24 documented as of this encounter
--- OUTSIDE RECORDS SUMMARY | 2025-01-13 15:35 | XMS_ITS | Encounter Summary ---
Author Organization Healthcare Address [address] [place] [address] Care Team Providers Care Shank Cementer Hand Name Role Phone Angela Oleary RN Unavailable Unavailable Rey Wyatt MD Primary Care Provider [phone] Encounter Details Date Type Department Care Team [...] week 02/22/2024 How often do you attend [facility] or adventist services? Never 02/22/2024 Do you [...] Recorded Patient Health Questionnaire-2 Score 0 11/16/2024 [facility] of Occupat ional Health - [...] in a halfway (including now)? No 02/09/2024 [place] Depression Scale Answer Date Recorded [place] Depression Scale Total 6 08/08/2024 The thought [...] drink first t casi in the morning (EYE-TELEMETRY TECHNICIAN) to steady your nerves or to [...] Appointment [facility] S Endoscopy [address] [place] [address] Cody Barnett MD [address] [place] [address] 02/10/2025 10:00 AM EDT [facility] [address] [place] [address] Rachel Khan PA [address] [place] [address] 02/16/2025 1:20 PM EDT Office Visit [facility] [place] [address], [address] [place] [address] Courtney Torres MD [address] [place] [address] 03/15/2025 3:30 PM EDT Consult [facility] [address], 1[address] [place] [address] Kendy Sanchez, EDITOR MANAGING DIRECTOR [address] [place] [address] 04/17/2025 2:00 PM EDT Office Visit [facility] Medicine Specialties [address], 2[address] [place] [address] Silverio Tam PA [address] [place] [address] documented as of this encounter [...] documented as of this encounter Care Teams Shank Cementer Hand Relationship Specialty Start Date End Date Rey Wyatt MD [address] [place] [address] PCP - General 11/16/24 Angela Oleary, RN [facility] Registered Nurse Cardiology 02/17/24 documented as of this encounter
--- OUTSIDE RECORDS SUMMARY | 2025-01-13 15:35 | XMS_ITS | Encounter Summary ---
Author Organization Healthcare Address [address] [place] [address] Care Team Providers Care City Planning Engineer Name Role Phone Angela Oleary RN Unavailable Unavailable Rey Wyatt MD Primary Care Provider [phone] Encounter Details Date Type Department Care Team (Late st Contact Info) Description 11/16/2024 Telephone [facility] [address], 1[address] [place] [address] Kendy Sanchez, MILK HANDLER [address] [place] [address] Social History Tobacco Use Types [...] 11/16/2024 [facility] Occupational Stress Questionnaire Answer [...] a senior living (including now)? No 02/09/2024 [place] Depression Scale Answer Date Recorded [place] Depression Scale Total 6 08/08/2024 The thought [...] drink first t casi in the morning (EYE-SHOP HAND) to steady your nerves or to [...] EDT Appointment [facility] S Endoscopy [address] [place] [address] Cody Barnett MD [address] [facility] [address] [place] [address] 02/10/2025 10:00 AM EDT Office Visit [facility] Endocrinology [address] [place] [address] Rachel Khan PA [address] [facility] [address] [place] [address] 02/16/2025 1:20 PM EDT Office Visit [facility] [place] [address] [facility], [address] [place] [address] Courtney Torres MD [address] [facility] [address] [place] [address] 03/15/2025 3:30 PM EDT Consult [facility] [address], 1[address] [place] [address] Kendy Sanchez APRN [address] [facility] [address] [place] [address] 04/17/2025 2:00 PM EDT Office Visit [facility] [address], 2[address] [place] [address] Silverio Tam PA [address] [facility] [address] [place] [address] documented as of this encounter [...] documented as of this encounter Care Teams City Planning Engineer Relationship Specialty Start Date End Date Rey Wyatt MD [address] [place] [address] PCP - General 11/16/24 Angela Oleary, RN [facility] Registered Nurse Cardiology 02/17/24 documented as of this encounter
--- OUTSIDE RECORDS SUMMARY | 2025-01-13 15:35 | XMS_ITS | Encounter Summary ---
Author Organization Healthcare Address [address] [id number] Care Team Providers Care Collect On Delivery Clerk Name Role Phone Molly Louis MD Primary Care Provider [phone] Angela Oleary RN Unavailable Unavailable Encounter Details Date Type Department Care Team (Late st Contact Info) Description 11/14/2024 Orders Only [place] [facility] Endocrinology [address] [place] [address] Abundio Kyle MBBS [address] [place], [place] [address] Thyrotoxicosis with Tricia thyroiditis (Primary Dx) Social [...] Recorded Patient Health Questionnaire-2 Score 2 09/06/2024 [facility] - Occupational Stress Questionnaire Answer Date [...] in a usp (including now)? No 02/09/2024 [place] Depression Scale Answer Date Recorded [place] Depression Scale Total 6 08/08/2024 The thought [...] drink first t casi in the morning (EYE-CARPENTER CRADLE AND DOLLY) to steady your nerves or to get [...] EDT Appointment [facility] Endoscopy [address] [place] [address] Cody Barnett MD [address] [place] [address] 02/10/2025 10:00 AM EDT Office Visit [facility] Endocrinology [address] [place] [address] Rachel Khan PA [address] [place] [address] 02/16/2025 1:20 PM EDT Office Visit [facility] [place] [address], [address] [place] [address] Courtney Torres MD [address] [place] [address] 03/15/2025 3:30 PM EDT Consult [facility] [address], 1[address] [place] [address] Kendy Sanchez, TRISTAN [address] [place] [address] 04/17/2025 2:00 PM EDT Office Visit [facility] Medicine Specialties [address], [address] [place] [address] Silverio Tam PA [address] [place] [address] documented as of this encounter Goals Goal Patient Goal Type Associated Problems Recent Progress Patient-Stated? Author Delayed Delivery Care Plan CPM S22 PP LABOR (OBSTETRICS) No Open Scheduling, Background documented as of this encounter Results * T4, free (12/15/2024 3:29 PM EDT) Free T4, Plasma 1.7 0.8 - 1.7 ng/dL 12/15/2024 4:54 PM EDT [facility] Blood Venous blood specimen / Unknown Venipuncture / Unknown 12/15/2024 3:29 PM EDT 12/15/2024 3:30 PM EDT Narrative [facility] - 12/15/2024 4:54 PM EDT Free T4 Trimester Specific Ranges 1st Trimester 0.9 - 1.50 ng/dL 2nd Trimester 0.7 - 1.40 ng/dL 3rd Trimester 0.7 - 1.24 ng/dL us Roland Wooten MD LAB BLOOD ORDERABLES Final Resu lt Performing Organization Address [facility] Co de Phone Number [facility] [address] [place] [address] * (ABNORMAL) TSH (12/15/2024 3:29 PM EDT) Thyroid Stimulating Hormone, Plasma <0.01(L) 0.40 - 4.20 uIU/mL 12/15/2024 4:54 PM EDT [facility] Blood Venous blood specimen / Unknown Venipuncture / Unknown 12/15/2024 3:29 PM EDT 12/15/2024 3:30 PM EDT Narrative [facility] - 12/15/2024 4:54 PM EDT Trimester Specific Ranges TSH ( IU/mL) 1st Trimester 0.1 - 3.0 2nd Trimester 0.19 - 4.06 3rd Trimester 0.3 - 3.7 us Roland Wooten MD LAB BLOOD ORDERABLES Final Resu lt Performing Organization Address [facility] Co de Phone Number [facility] [address] [place] [address] documented in this encounter Visit Diagnoses Diagnosis [...] documented as of this encounter Care Teams Collect On Delivery Clerk Relationship Specialty Start Date End Date Molly Louis MD [address] [place], [place] [id number] PCP - General Family Medicine 02/09/24 11/15/24 Angela Oleary, RN [facility] Registered Nurse Cardiology 02/17/24 documented as of this encounter
--- OUTSIDE RECORDS SUMMARY | 2025-01-13 15:35 | XMS_ITS | Encounter Summary ---
Author Organization Healthcare Address [address] [place] [address] Care Team Providers Care Legal Department Manager Name Role Phone Molly Louis MD Primary Care Provider Angela Oleary RN Unavailable Unavailable Rey Wyatt MD Primary Care Provider [phone] Encounter Details Date Type Department Care Team (Late st Contact Info) Description 10/21/2024 Telephone [facility] [place] [address] [place] [address] None, None [address] [place], [place] [id number] Social History Tobacco Use Types Packs/Day Years [...] any clubs o r organizations such as yarsani groups, unions, fraternal or athletic groups, or [...] Health [facility] of Occupat ional [facility] - Occupational Stress Questionnaire Answer Date [...] a long term (including now)? No 02/09/2024 [place] Depression Scale Answer Date Recorded [place] Depression Scale Total 6 08/08/2024 The thought [...] drink first t casi in the morning (EYE-DERIVATIVES TRADER) to steady your nerves or to get [...] EDT Clinical Concern/Question Reason for Call: Per [facility], patient needs hospital discharge follow up for POTS, tachycardia and chest? Best contact number: Other: [phone] Optimal time of day to reach caller: ANYTIME Additional comments/information from caller: None Note: Please do not reply to this message. Follow-up communication and further actions as a result of this message need to be communicated with the patient directly, if the patient is not active onMyChart. If the patient is active on MyChart, they will receive notification of the communication/outcome via [employer]. documented in this encounter Plan of Treatment Upcoming Encounters Date Type Department Care Team (Late st Contact Info) Description 01/17/2025 7:00 AM EDT Appointment [facility] [address] [place] [address] Cody Barnett MD [address] [place] [address] 02/10/2025 10:00 AM EDT Office Visit [facility] Endocrinology [address] [place] [address] Rachel Khan PA [address] [place] [address] 02/16/2025 1:20 PM EDT Office Visit [facility] [place] [address], [address] [place] [address] Courtney Torres MD [address] [place] [address] 03/15/2025 3:30 PM EDT Consult [facility] [address], 1st [place] [address] Kendy Sanchez APRN [address] [place] [address] 04/17/2025 2:00 PM EDT Office Visit [facility] Medicine Specialties [address], 2nd [place] [address] Silverio Tam PA [address] [place] [address] documented as of this [...] documented as of this encounter Care Teams Legal Department Manager Relationship Specialty Start Date End Date Molly Louis MD [address] [place] [address] [place] [address] PCP - General Family Medicine 02/09/24 11/15/24 [place] [address] [place] [address] [place] [address] PCP - General 11/16/24 Angela Oleary, RN [facility] Registered Nurse Cardiology 02/17/24 documented as of this encounter
--- OUTSIDE RECORDS SUMMARY | 2025-01-13 15:35 | XMS_ITS | Encounter Summary ---
Author Organization Healthcare Address [address] [place] [address] Care Team Providers Care Food Service Cashier Name Role Phone Angela Oleary RN Unavailable Unavailable Rey Wyatt MD Primary Care Provider [phone] Encounter Details Date Type Department Care Team [...] do you attend [facility] or catholic services? Never 02/22/2024 Do you belong to any clubs o r organizations such as nondenominational groups, unions, fraternal or athletic groups, or [...] Recorded Patient Health Questionnaire-2 Score 0 12/15/2024 [facility] of Occupat ional Health [...] in a penitentiary (including now)? No 02/09/2024 [place] Depression Scale Answer Date Recorded [place] Depression Scale Total 6 08/08/2024 The [...] first t casi in the morning (EYE-MIRROR INSPECTOR) to steady your nerves or to get rid of a hangover? 0 07/16/2024 CAGE Questionnaire Score 0 024 Utilities Answer Date Recorded In the past 12 months has th e [employer], gas, oil, or water company threatened to [...] EDT Appointment [facility] Endoscopy [address] [place] [address] Cody Barnett MD [address] [place] [address] 02/10/2025 10:00 AM EDT Office Visit [facility] Endocrinology [address] [place] [address] Rachel Khan PA [address] [facility] [address] [place] [address] 02/16/2025 1:20 PM EDT Office Visit [facility] [place] [address] [place] [address] Courtney Torres MD [address] [place] [address] 03/15/2025 3:30 PM EDT Consult [facility] [address] 1[address] [place] [address] Kendy Sanchez APRN [address] [place] [address] 04/17/2025 2:00 PM EDT Office Visit [facility] Medicine Specialties [address], [address] [place] [address] Silverio Tam PA [address] [place] [address] documented as of this encounter [...] as of this encounter Care Teams Food Service Cashier Relationship Specialty Start Date End Date Rey Wyatt MD [address] [place] [address] PCP - General 11/16/24 Angela Oleary, RN [facility] Registered Nurse Cardiology 02/17/24 documented as of this encounter
--- OUTSIDE RECORDS SUMMARY | 2025-01-13 15:35 | XMS_ITS | Encounter Summary ---
Author Organization Healthcare Address [address] [place] [address] Care Team Providers Care Business Services Administrator Name Role Phone Molly Louis MD Primary Care Provider [phone] Angela Oleary RN Unavailable Unavailable Rey Wyatt MD Primary Care Provider [phone] Encounter Details Date Type Department Care Team (Late st Contact Info) Description 10/21/[address] [address] [place] [address] Roland Wooten MD [address] [facility] [address] [place] [address] Social History Tobacco Use Types [...] How often do you attend chur or mosque services? Never 02/22/2024 Do you belong to [...] Recorded Patient Health Questionnaire-2 Score 0 11/16/2024 [facility] of Occupat ional Health - [...] a senior living (including now)? No 02/09/2024 [place] Depression Scale Answer Date Recorded [place] Depression Scale Total 6 08/08/2024 The thought [...] drink first t casi in the morning (EYE-TURBINATED BONE GRINDER) to steady your nerves or to [...] patient, has still not been discharged from [facility], advised that Dr Wooten could call this afternoon and requested recent lab results be faxed to [phone]. * Telephone Encounter - Cindy Mckeon - 10/21/2024 9:19 AM EDT Patient Phone Message Reason for Call: Pt called back to say she is being discharged from the hospital today. She asks for a call back aiden. Best contact number and optimal time of day to reach caller: [phone] Note: Please do not reply to this [...] Reason for Call: Pt is in-patient at [facility] due to a Thyroid related emergency. Pt doesn't think she will be discharged in time for her 10:40 apt today so the apt was rescheduled. Pt said she really needs to be seen and she is worried about going over the weekend without consulting with Dr Wooten. Pls advise. Best contact number: [phone] (mobile) Optimal time of day to reach [...] EDT Appointment [facility] Endoscopy [address] [place] [address] Cody Barnett MD [address] [place] [address] 02/10/2025 10:00 AM EDT Office Visit [facility] Endocrinology [address] [place] [address] Rachel Khan PA [address] [facility] [address] [place] [address] 02/16/2025 1:20 PM EDT Office Visit [facility] [place] [address] [place] [address] Courtney Torres MD [address] [place] [address] 03/15/2025 3:30 PM EDT Consult [place] [facility] [address] 1st [place] [address] Kendy Sanchez APRN [address] [place] [address] 04/17/2025 2:00 PM EDT Office Visit [facility] Medicine Specialties [address], 2nd [place] [address] Silverio Tam PA [address] [place] [address] documented as of this encounter [...] documented as of this encounter Care Teams Business Services Administrator Relationship Specialty Start Date End Date Molly Louis MD [address] [place] [address] PCP - General Family Medicine 02/09/24 11/15/24 [place] [address] [place] [address] [address] [place] [address] PCP - General 11/16/24 Angela Oleary, RN [facility] Registered Nurse Cardiology 02/17/24 documented as of this encounter
--- OUTSIDE RECORDS SUMMARY | 2025-01-13 15:37 | XMS_ITS | Encounter Summary ---
Author Organization [facility] Address [address] [place] [address] Care Team Providers Care Scientific Software Developer Name Role Phone Angela Oleary RN Unavailable Unavailable Rey Wyatt MD Primary Care Provider [phone] Reason for Referral * Imaging (Routine) - Authorized Specialty Diagnoses / Procedures Referred By Mili joe Referred To Contact Gastroenterology Diagnoses Abdominal pain, epigastric Diarrhea, unspecified type Weight loss Hematochezia Procedures Capsule Endoscopy Silverio Tam PA [address] [facility] [address] [place] [address] Phone: tel: fax: Referral ID Status Reason Start Date Expiration Date Visits Requested Visits Authorized [id number] Authorized Specialty Services Required 12/28/2024 06/29/2026 1 1 Encounter Details Date Type Department Care Team (Late st Contact Info) Description 12/28/2024 Orders Only [facility] Medicine Specialties [address] [place] [address] Silverio Tam PA [address] [facility] [address] [place] [address] Abdominal pain, epigastric (Primary Dx); [...] often do you attend chur ch or rastafari services? Never 02/22/2024 Do you belong to [...] Recorded Patient Health Questionnaire-2 Score 0 12/15/2024 [facility] of Occupat ional Health - Occupational [...] in a snf (including now)? No 02/09/2024 [place] Depression Scale Answer Date Recorded [place] Depression Scale Total 6 08/08/2024 The thought [...] drink first t casi in the morning (EYE-GERIATRIC AIDE) to steady your nerves or to get rid of a hangover? 0 07/16/2024 CAGE Questionnaire Score 0 024 Utilities Answer Date Recorded In the past 12 months has th e [employer], gas, oil, or water company threatened to [...] EDT Appointment [facility] Endoscopy [address] [place] [address] Cody Barnett MD [address] [place] [address] 02/10/2025 10:00 AM EDT Office Visit [facility] Endocrinology [address] [place] [address] Rachel Khan PA [address] [facility] [address] [place] [address] 02/16/2025 1:20 PM EDT Office Visit [facility] [place] [address] [facility], [address] [place] [address] Courtney Torres MD [address] [place] [address] 03/15/2025 3:30 PM EDT Consult [place] [facility] [address] 1st [place] [address] Kendy Sanchez, ART FRAMING MANAGER [address] [place] [address] 04/17/2025 2:00 PM EDT Office Visit [facility] Medicine Specialties [address] 2[address] [place] [address] Silverio Tam PA [address] [place] [address] Scheduled Orders Name Type Priority [...] documented as of this encounter Care Teams Scientific Software Developer Relationship Specialty Start Date End Date Rey Wyatt MD [address] [place] [address] PCP - General 11/16/24 Angela Oleary, RN [facility] Registered Nurse Cardiology 02/17/24 documented as of this encounter
--- OUTSIDE RECORDS SUMMARY | 2025-01-13 15:37 | XMS_ITS | Encounter Summary ---
Author Organization Healthcare Address [address] [place] [place] [id number] Care Team Providers Care Bean Dumper Name Role Phone Molly Louis MD Primary Care Provider [phone] Angela Oleary RN Unavailable Unavailable Rey Wyatt MD Primary Care Provider [phone] Reason for Visit * Reason Onset Date Comments Med Refill 03/03/2024 Encounter Details Date Type Department Care Team (Late st Contact Info) Description 03/03/2024 Refill [facility] Inpatient [address] [place] [address] Paris Marion MD [address] [place] [address] Social History Tobacco Use Types Packs/Day Years [...] Recorded Patient Health Questionnaire-2 Score 0 02/17/2024 [facility] of Occupat ional [facility] - Occupational Stress Questionnaire Answer [...] in a snf (including now)? No 02/09/2024 [place] Depression Scale Answer Date Recorded [place] Depression Scale Total 8 02/22/2024 The thought [...] EDT Appointment [facility] Endoscopy [address] [place] [address] Cody Barnett MD [address] [place] [address] 02/10/2025 10:00 AM EDT Office Visit [facility] Endocrinology [address] [place] [address] Rachel Khan PA [address] [place] [address] 02/16/2025 1:20 PM EDT Office Visit [facility] [place] [address] [place] [address] Courtney Torres MD [address] [place] [address] 03/15/2025 3:30 PM EDT Consult [facility] [address] 1st [place] [address] Kendy Sanchez APRN [address] [place] [address] 04/17/2025 2:00 PM EDT Office Visit [facility] Medicine Specialties [address] 2[address] [place] [address] Silverio Tam PA [address] [place] [address] documented as of this encounter [...] documented as of this encounter Care Teams Bean Dumper Relationship Specialty Start Date End Date Molly Louis MD [address] [place], [place] [id number] PCP - General Family Medicine 02/09/24 11/15/24 [place] [address] [place] [address] PCP - General 11/16/24 Angela Oleary, RN [facility] Registered Nurse Cardiology 02/17/24 documented as of this encounter
--- OUTSIDE RECORDS SUMMARY | 2025-01-13 15:37 | XMS_ITS | Encounter Summary ---
Author Organization Healthcare Address [address] [place] [address] Care Team Providers Care Certified Substance Abuse Counselor Name Role Phone Pcp, No Primary Care Provider UnavailMolly Newman MD Primary Care Provider [phone] Angela Oleary RN Unavailable Unavailable Rey Wyatt MD Primary Care Provider [phone] Encounter Details Date Type Department Care Team (Late Contact Info) Description 01/22/2024 Orders Only External Location [address] [place] [address] Provider, External Social History Tobacco Use Types [...] EDT Appointment [facility] Endoscopy [address] [place] [address] Cody Barnett MD [address] [place] [address] 02/10/2025 10:00 AM EDT [facility] Endocrinology [address] [place] [address] Rachel Khan PA [address] [place] [address] 02/16/2025 1:20 PM EDT Office Visit [facility] [place] [address] [place] [address] Courtney Torres MD [address] [place] [address] 03/15/2025 3:30 PM EDT Consult [facility] [address] 1[address] [place] [address] Kendy Sanchez APRN [address] [place] [address] 04/17/2025 2:00 PM EDT Office Visit [facility] Medicine Specialties [address], 2nd [place] [address] Silverio Tam PA [address] [place] [address] documented as of this encounter [...] documented as of this encounter Care Teams Certified Substance Abuse Counselor Relationship Specialty Start Date End Date Pcp, No [address] [place] [address] PCP - General Family Medicine 01/22/24 02/08/24 Molly Louis MD [address] [place] [address] PCP - General Family Medicine 02/09/24 11/15/24 Rey Wyatt MD [address] [facility] [address] [place] [address] PCP - General 11/16/24 Angela Oleary, RN [facility] Registered Nurse Cardiology 02/17/24 documented as of this encounter
--- OUTSIDE RECORDS SUMMARY | 2025-01-13 15:37 | XMS_ITS | Encounter Summary ---
Author Organization Healthcare Address [address] [place] [address] Care Team Providers Care Financial Associate Name Role Phone Angela Oleary RN Unavailable Unavailable Rey Wyatt MD Primary Care Provider [phone] Encounter Details Date Type Department Care Team (Late st Contact Info) Description 12/28/2024 Orders Only [facility] Medicine Specialties [address] 2nd [place] [address] Keya Minor RN [facility] Diarrhea, [...] often do you attend chur ch or cheondoism services? Never 02/22/2024 Do you belong to any clubs o r organizations such as tenriism groups, unions, fraternal or athletic groups, or [...] Health Questionnaire-2 Score 0 12/15/2024 [facility] of Occupat ional Health - Occupational [...] in a chcf (including now)? No 02/09/2024 [place] Depression Scale Answer Date Recorded [place] Depression Scale Total 6 08/08/2024 The thought [...] drink first t casi in the morning (EYE-TYING MACHINE OPERATOR LUMBER) to steady your nerves or to get [...] EDT Appointment P[facility] S Endoscopy [address] [place] [address] Cody Barnett MD [address] [place] [address] 02/10/2025 10:00 AM EDT Office Visit [facility] Endocrinology [address] [place] [address] Rachel Khan PA [address] [place] [address] 02/16/2025 1:20 PM EDT Office Visit [facility] [place] [address] [place] [address] Courtney Torres MD [address] [place] [address] 03/15/2025 3:30 PM EDT Consult [facility] [address] 1[address] [place] [address] Kendy Sanchez APRN [address] [place] [address] 04/17/2025 2:00 PM EDT Office Visit [facility] Medicine Specialties [address] 2[address] [place] [address] Silverio Tam PA [address] [place] [address] documented as of this encounter [...] documented as of this encounter Care Teams Financial Associate Relationship Specialty Start Date End Date Rey Wyatt MD [address] [place] [address] PCP - General 11/16/24 Angela Oleary, RN [facility] Registered Nurse Cardiology 02/17/24 documented as of this encounter
--- OUTSIDE RECORDS SUMMARY | 2025-01-13 15:37 | XMS_ITS | Encounter Summary ---
Author Organization Healthcare Address [address] [place] [address] Care Team Providers Care Valve Liner Rubber Name Role Phone Angela Oleary RN Unavailable Unavailable Rey Wyatt MD Primary Care Provider [phone] Encounter Details Date Type Department Care Team (Late st Contact Info) Description 12/30/2024 Orders Only [facility] Medicine Specialties [address] 2nd [place] [address] Silverio Tam PA [address] [place] [address] Social History Tobacco Use Types [...] often do you attend chur ch or church services? Never 02/22/2024 Do you belong to [...] Recorded Patient Health Questionnaire-2 Score 0 12/15/2024 [facility] - Occupational Stress Questionnaire Answer [...] in a prison (including now)? No 02/09/2024 [place] Depression Scale Answer Date Recorded [place] Depression Scale Total 6 08/08/2024 The thought [...] drink first t casi in the morning (EYE-INDUSTRIAL SERVICES WORKER) to steady your nerves or to get rid of a hangover? 0 07/16/2024 CAGE Questionnaire Score 0 024 Utilities Answer Date Recorded In the past 12 months has th e [employer], gas, oil, or water company threatened to [...] EDT Appointment P[facility] S Endoscopy [address] [place] [address] Cody Barnett MD [address] [place] [address] 02/10/2025 10:00 AM EDT Office Visit [facility] Endocrinology [address] [place] [address] Rachel Khan PA [address] [facility] [address] [place] [address] 02/16/2025 1:20 PM EDT Office Visit [facility] [place] [address] [facility] [place] [address] Courtney Torres MD [address] [facility] [address] [place] [address] 03/15/2025 3:30 PM EDT Consult [facility] [facility] [address] 1[address] [place] [address] Kendy Sanchez APRN [address] [place] [address] 04/17/2025 2:00 PM EDT Office Visit [facility] Medicine Specialties [address] 2[address] [place] [address] Silverio Tam PA [address] [place] [address] documented as of this encounter [...] documented as of this encounter Care Teams Valve Liner Rubber Relationship Specialty Start Date End Date Rey Wyatt MD [address] [place] [address] PCP - General 11/16/24 Angela Oleary, RN [facility] Registered Nurse Cardiology 02/17/24 documented as of this encounter
--- OUTSIDE RECORDS SUMMARY | 2025-01-13 15:37 | XMS_ITS | Encounter Summary ---
Author Organization Healthcare Address [address] [place] [address] Care Team Providers Care Fertilizer Supervisor Name Role Phone Angela Oleary RN Unavailable Unavailable Rey Wyatt MD Primary Care Provider [phone] Encounter Details Date Type Department Care Team (Late st Contact Info) Description 12/20/2024 Results Follow-Up [facility] Medicine Specialties [address], [address] [place] [address] Silverio Tam PA [address] [place] [address] Social History Tobacco Use Types [...] Recorded Patient Health Questionnaire-2 Score 0 12/15/2024 [facility] - Occupational Stress Questionnaire Answer Date Recorded [...] in a alf (including now)? No 02/09/2024 Laurel Depression Scale Answer Date Recorded Laurel Depression Scale Total 6 08/08/2024 The thought [...] drink first t casi in the morning (EYE-CHILD CARE CENTER ASSISTANT DIRECTOR) to steady your nerves or to [...] EDT Appointment [facility] [address] [place] [address] Cody Barnett MD [address] [facility] [address] [place] [address] 02/10/2025 10:00 AM EDT Office Visit [facility] Endocrinology [address] [place] [phone] Rachel Khan PA [address] [facility] [address] [place] [address] 02/16/2025 1:20 PM EDT Office Visit [facility] [address] [facility], [address] [place] [address] Courtney Torres MD [address] [facility] [address] [place] [address] 03/15/2025 3:30 PM EDT Consult [facility] [address] [place] [address] Kendy Sanchez APRN [address] [facility] [address] [place] [address] 04/17/2025 2:00 PM EDT Office Visit [facility] Medicine Specialties [address], [address] [place] [address] Silverio Tam PA [address] [facility] [address] [place] [address] documented as of this encounter [...] documented as of this encounter Care Teams Fertilizer Supervisor Relationship Specialty Start Date End Date Rey Wyatt MD [address] [place] [address] PCP - General 11/16/24 Angela Oleary, RN [facility] Registered Nurse Cardiology 02/17/24 documented as of this encounter
--- OUTSIDE RECORDS SUMMARY | 2025-01-13 15:37 | XMS_ITS | Clinical Summary ---
Author Organization [employer] Address [address] [place] [address] Care Team Providers Care Choir Teacher Name Role Phone Molly Louis MD Primary Care Provider [phone] Allergies Active Allergy Reactions Criticality Noted Date [...] Date Guerrero rded Speak language other than [place] Citizen at home Not on file 08/13/2023 Want [...] Ended) 2025 Medical Devices Implanted Type Area Reshipping Clerk Device Identifier Shelf Expiration Date Model / Serial / Lot K-Wire [id number] - [id number] Implanted:Qty: 1 on 08/04/2022 by Rex Rene MD at [facility] IMPLANTS Right: Hand ANNIA:[employer] [id number] / / Wire K-Wire 1.6mm - [id number] Implanted:Qty: 1 on 08/04/2022 by Rex Rene MD at [facility] IMPLANTS Right: Hand BUCK MED GRP:MediaWheel TECH / / [place] [address] [address] [address] Advance Directives For more information, please contact: [phone] * Full Code (Latest Code Status on File) Date Activated Date Inactivated Comments 08/04/2022 6:03 AM 08/04/2022 11:35 AM Care Teams Choir Teacher Relationship Specialty Start Date End Date Molly Louis MD [address] [place] [address] [address] [place] [address] PCP - General 08/22/24
--- OUTSIDE RECORDS SUMMARY | 2025-01-13 15:37 | XMS_ITS | Encounter Summary ---
Author Organization [employer] Address [address] [place] [address] Care Team Providers Care Substance Abuse Counselor Name Role Phone Molly Louis MD Primary Care Provider [phone] Encounter Details Date Type Department Care Team (Late st Contact Info) Description 04/14/2024 Outside Orders [facility] Admitting [address] [place] [address] Silverio Tam, BOOKER [address] [place] [id number] Blood in stool (Primary Dx) Social History [...] Date Guerrero rded Speak language other than [place] at home Not on file 08/13/2023 Want [...] 87(H) <=49 ug/g 04/19/2024 11:26 PM EDT [email or web address] Comment: REFERENCE INTERVAL: Calprotectin, Fecal by Immunoassay Less than 50 ug/g.........Normal 50-120 ug/g...............Borderline elevated, test should be re-evaluated in 4-6 weeks. 121 ug/g or greater.......Elevated Performed By: [facility] [address] [place] [address] Assistant Health Educator: Wilber Pardo MD, PhD CLIA Number: [id number] Stool 04/14/2024 11:0 6 AM EDT 04/14/2024 11:47 AM EDT us Silverio [facility] - GENERAL ORDERAB LES Final Result [email or web address] [address] [place] [address], [facility] [phone] documented in this encounter Visit Diagnoses Diagnosis Blood in stool- Primary documented in this encounter Care Teams Substance Abuse Counselor Relationship Specialty Start Date End Date Molly Louis MD [address] [place] [address] PCP - General 08/22/24 documented as of this encounter
--- OUTSIDE RECORDS SUMMARY | 2025-01-13 15:37 | XMS_ITS | Referral Summary ---
Author Organization [employer] Address [address] [place] [address] Care Team Providers Care Operating Room Orderly Name Role Phone Molly Louis MD Primary Care Provider [phone] Allergies Active Allergy Reactions Criticality Noted Date [...] Date Guerrero rded Speak language other than Eritrean at home Not on file 08/13/2023 Want [...] on file Medical Devices Implanted Type Area Lead Cook Device Identifier Shelf Expiration Date Model / Serial / Lot K-Wire [id number] - [id number] Implanted:Qty: 1 on 08/04/2022 by Rex Rene MD at [facility] IMPLANTS Right: Hand ANNIA:[employer] [id number] / / Wire K-Wire 1.6mm - [id number] Implanted:Qty: 1 on 08/04/2022 by Rex Rene MD at [facility] IMPLANTS Right: Hand ustyme GRP:ustyme TECH [id number] / / Insurance [facility] Advance Directives For more information, please contact: [phone] * Full Code (Latest Code Status on File) Date Activated Date Inactivated Comments 08/04/2022 6:03 AM 08/04/2022 11:35 AM Care Teams Operating Room Orderly Relationship Specialty Start Date End Date Molly Louis MD [address] [place] [address] [address] [place] [address] PCP - General 08/22/24
--- OUTSIDE RECORDS SUMMARY | 2025-01-13 15:37 | XMS_ITS | Clinical Summary ---
Author Organization [facility] Address [address] [place] [address] Care Team Providers Care Education Technician Name Role Phone Angela Oleary RN Unavailable Unavailable Rey Wyatt MD Primary Care Provider [phone] Allergies Active Allergy Reactions Criticality Noted Date [...] Patient not taking.Reported on 12/15/2024 sodium chloride (Kevin Nasal Cuervo) 0.65 % nasal spray Administer 1 spray into each nostril if needed for congestion. 30 mL 12 024 Active Additional Information Patient not taking.Reported on 12/15/2024 Blood Glucose Monitoring Suppl (OneTouch Verio Reflect) w/Device kit Active OneTouch Verio test strip 1 each by Other route if needed. Active Lancets (OneTouch Delica Plus [id number]) [facility] Active ibuprofen 600 MG tablet Take 1 [...] Department Care Team Description 12/30/[address] [facility] Medicine Specialties [address] [place] [address] Silverio Tam PA 12/28/[address] [facility] Medicine Specialties [address], [address] [place] [address] Silverio Tam PA Abdominal pain, epigastric (Primary Dx); Diarrhea, unspecified type; Weight loss; Hematochezia 12/28/2024 Results Follow-Up [facility] Medicine Specialties [address], [address] [facility] [place] [address] Estuardo Jon MD 12/28/[address] [facility] Medicine Specialties [address], [address] [place] [facility] [place] [address] Keya Minor RN Diarrhea, unspecified type 12/20/2024 Results Follow-Up [facility] Medicine Specialties [address], [address] [place] [address] Silverio Tam PA 12/16/2024 Results Follow-Up [facility] Endocrinology [address] [place] [address] Abundio Kyle MBBS 12/15/2024 2:30 PM EDT Office Visit [facility] Medicine Specialties [address], [address] [place] [address] Silverio Tam PA Weight loss (Primary Dx); Abdominal pain, epigastric; Diarrhea, unspecified type; Postural orthostatic tachycardia syndrome (POTS); Hematochezia; Elevated fecal calprotectin; Urticaria; History of anesthesia reaction; Gastroesophageal reflux disease, unspecified whether esophagitis present; Gilbert's syndrome; Nausea and vomiting, unspecified vomiting type; BMI 23.0-23.9, adult 12/15/2024 Travel 12/09/[address] [facility] Medicine Specialties [address], [address] [place] [address] Silverio Tam PA 12/08/2024 Travel 12/07/2024 7:03 AM EDT - 12/07/2024 11:59 PM EDT Hospital Encounter [facility] [address] [place] [address] Estuardo Jon MD Diarrhea, unspecified type (Primary Dx); Hematochezia; Abdominal pain, epigastric Discharge Disposition: Home or Self Care 12/07/2024 Travel 11/20/2024 9:18 PM EDT - 11/20/2024 11:32 PM EDT Emergency [facility] Emergency Department [address] [place] [address] Leo Souza MD Palpitations (Primary Dx) Discharge Disposition: Home or Self Care 11/20/2024 Travel 11/16/2024 3:15 PM EDT Office Visit [facility] [place] [address] [facility], [address] [place] [address] Ashanti Camarena MD 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 [address] [place] [address] Kendy SanchezTRISTAN 11/14/2024 Orders Only [facility] Endocrinology [address] [place] [address] Abundio Kyle MBBS Thyrotoxicosis with Tricia thyroiditis (Primary Dx) 11/13/2024 Travel 11/11/2024 8:40 AM EDT Office Visit [facility] Endocrinology [address] [place] [address] (1), Roland Wooten Fellow Abundio Kyle MBBS Thyrotoxicosis with Tricia thyroiditis (Primary Dx); Hyperthyroidism 11/11/2024 Travel 10/21/2024 Telephone [facility] [place] [address] [place] [address] None, None 10/21/2024 Telephone [facility] Endocrinology [address] [place] [address] Roland Wooten MD 10/20/2024 Travel 10/17/[address] [facility] Medicine Specialties [address], [address] [place] [address] Silverio Tam PA Hematochezia (Primary Dx); Abdominal [...] failure Father Sahil reynoso Hypertension Father Sahil angeles Stroke Father Sahil reynoso Cancer Maternal Grandmother Melania sheridan Abnormal EKG Mother Avril cradagn Autoimmune disease Mother Crystal craft Clotting disorder [...] How often do you attend [facility] or yazidism services? Never 02/22/2024 Do you [...] Recorded Patient Health Questionnaire-2 Score 0 12/15/2024 [facility] [...] place to sleep or slept in a detention (including now)? 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 [address] Cody Barnett MD [address] [place] [address] 02/10/2025 10:00 AM EDT Office Visit [facility] Endocrinology [address] [place] [phone] Rachel Khan PA [address] [facility] [address] [place] [address] 02/16/2025 1:20 PM EDT Office Visit [facility] [place] [address] [facility], [address] [place] [address] Courtney Torres MD [address] [facility] [address] [place] [address] 03/15/2025 3:[address] [facility] [address], 1[address] [place] [address] Kendy Sanchez, DRAPERY AND UPHOLSTERY MEASURER [address] [place] [address] 04/17/2025 2:00 PM EDT Office Visit [facility] Medicine Specialties [address] [place] [address] Silverio Tam PA [address] [place] [address] Health Maintenance Due Date Last [...] - Td or Tdap) 02/21/2020 02/20/2010, 04/26/2002 [id number] Vaccine (2 - Jasmine risk series) 03/21/2021 [...] Quantitative PCR (12/15/2024 3:29 PM EDT) Pathologist [facility] Cytomegalovirus (CMV) Quantitative Interpretation Not Detected Not Detected 12/19/2024 2:26 PM EDT [facility] Blood Venous blood specimen / Unknown Venipuncture / Unknown 12/15/2024 3:29 PM EDT 12/15/2024 3:30 PM EDT Narrative [facility] - 12/19/2024 2:26 PM EDT The Frankly M2000 CMV test is a Real Time [...] ORDERABLES Final Res ult Performing Organization Address [facility]/[place] [address] * T3 (12/15/2024 3:29 PM EDT) Only the most recent of2 resultswithin the time period is included. Pathologist [facility] T3, Serum 177 87 - 187 ng/dL 12/15/2024 4:54 PM EDT [facility] Blood Venous blood specimen / Unknown Venipuncture / Unknown 12/15/2024 3:29 PM EDT 12/15/2024 3:30 PM EDT Silverio CELESTE LAB BLOOD ORDERABLES Final Res ult Performing Organization Address [facility]/ZIP Co de Phone Number [facility] [address] [place] [address] * Brayan-Holguin virus VCA, IgM (12/15/2024 3:29 [...] helpful. 44.0 U/mL or greater....Detected Performed By: [facility] [address] [place] [address] Reciprocating Drill Operator: Wilber Pardo MD, PhD CLIA Number: [id number] Silverio [facility] LAB BLOOD ORDERABLES Final Res ult [employer]) [address] [place] [address] * (ABNORMAL) Brayan Holguin IgG Ab (12/15/2024 3:29 PM EDT) Pathologist [facility] EBV ANTIBODY TO VIRAL CAPSID ANTIGEN IGG [...] helpful. 22.0 U/mL or greater....Detected Performed By: [facility] [address] [place] [address] Reciprocating Drill Operator: Wilber Pardo MD, PhD CLIA Number: [id number] [facility] LAB BLOOD ORDERABLES Final Res ult Performing Organization Address [facility] Co de Phone Number [facility] [address] [place] [address] * Prothrombin Time/INR (12/15/2024 3:29 PM EDT) [...] INR 2.5 to 3.5 Prevention of recurrent MO INR 2.5 to 3.5 Silverio CELE[facility] LAB BLOOD ORDERABLES Final Res ult Performing Organization Address City/[facility]/ZIP Co de Phone Number [facility] [address] [place] [address] * (ABNORMAL) CBC and Differential (12/15/2024 3:29 [...] Res ult [facility] [address] [place] [address] * (ABNORMAL) TSH (12/15/2024 3:29 PM EDT) Only the most recent of3 resultswithin the time period is included. Thyroid Stimulating Hormone, Plasma <0.01(L) 0.40 - 4.20 uIU/mL 12/15/2024 4:54 PM EDT [facility] Blood Venous blood specimen / Unknown Venipuncture / Unknown 12/15/2024 3:29 PM EDT 12/15/2024 3:30 PM EDT Narrative [facility] - 12/15/2024 4:54 PM EDT Trimester Specific Ranges TSH ( IU/mL) 1st Trimester 0.1 - 3.0 2nd Trimester 0.19 - 4.06 3rd Trimester 0.3 - 3.7 Roland Wooten MD LAB BLOOD ORDERABLES Final Resu lt Performing Organization Address [facility] de Phone Number [facility] [address] [place] [address] * T4, free (12/15/2024 3:29 PM EDT) Only the most recent of3 resultswithin the time period is included. Free T4, Plasma 1.7 0.8 - 1.7 ng/dL 12/15/2024 4:54 PM EDT [facility] Blood Venous blood specimen / Unknown Venipuncture / Unknown 12/15/2024 3:29 PM EDT 12/15/2024 3:30 PM EDT Narrative [facility] - 12/15/2024 4:54 PM EDT Free T4 Trimester Specific Ranges 1st Trimester 0.9 - 1.50 ng/dL 2nd Trimester 0.7 - 1.40 ng/dL 3rd Trimester 0.7 - 1.24 ng/dL Roland Wooten MD LAB BLOOD ORDERABLES Final Resu lt Performing Organization Address [facility] de Phone Number [facility] [address] [place] [address] * (ABNORMAL) Comprehensive Metabolic Panel, Plasma (12/15/2024 [...] Res ult [facility] [address] [place] [address] * Patency Capsule (12/07/2024 7:03 AM EDT) [...] Aly Posada MD on 11/20/2024 9:49 PM Shani Flaca Shankar DO IMG XR PROCEDURES Final Resul t * Troponin now and 120 min (11/20/2024 9:17 PM EDT) Troponin T, High Sensitivity, 0 Hour <6 <14 ng/L 11/20/2024 9:47 PM EDT [facility] Blood Venous blood specimen / Unknown Venipuncture / Unknown 11/20/2024 9:17 PM EDT 11/20/2024 9:20 PM EDT us Shani Flaca Shankar DO LAB BLOOD ORDERABLES Final Re sult [facility] [address] [place] [address] * CBC (11/20/2024 9:17 PM EDT) WBC Count 4.69 3.70 - 10.30 10*3/uL LAB HEMATOLOGY METHOD 11/20/2024 9:23 PM EDT [facility] RBC Count 4.26 3.90 - 5.20 10*6/uL LAB HEMATOLOGY METHOD 11/20/2024 9:23 PM EDT [facility] HGB 11.8 11.2 - 15.7 g/dL LAB HEMATOLOGY METHOD 11/20/2024 9:23 PM EDT [facility] HCT 35.8 34.0 - 45.0 % LAB HEMATOLOGY METHOD 11/20/2024 9:23 PM EDT [facility] Platelet Count 197 155 - 369 10*3/uL LAB HEMATOLOGY METHOD 11/20/2024 9:23 PM EDT [facility] MCV 84 79 - 98 fL LAB HEMATOLOGY METHOD 11/20/2024 9:23 PM EDT [facility] MCH 27.7 26.0 - 32.0 pg LAB HEMATOLOGY METHOD 11/20/2024 9:23 PM EDT [facility] MCHC 33.0 30.7 - 35.5 g/dL LAB HEMATOLOGY METHOD 11/20/2024 9:23 PM EDT [facility] RDW 12.5 11.5 - 14.5 % LAB HEMATOLOGY METHOD 11/20/2024 9:23 PM EDT [facility] MPV 11.6 8.8 - 12.5 fL LAB HEMATOLOGY METHOD 11/20/2024 9:23 PM EDT [facility] nRBC 0.0 <=0.0 per 100 WBCs LAB HEMATOLOGY METHOD 11/20/2024 9:23 PM EDT [facility] Blood Venous blood specimen / Unknown Venipuncture / Unknown 11/20/2024 9:17 PM EDT 11/20/2024 9:20 PM EDT us Shani L Vonnie DO LAB BLOOD ORDERABLES Final Re sult [facility] [address] [place] [address] * hCG qualitative (11/20/2024 9:17 PM EDT) Test Negative Negative 11/20/2024 10:02 PM EDT [facility] Blood Venous blood specimen / Unknown Venipuncture / Unknown 11/20/2024 9:17 PM EDT 11/20/2024 9:20 PM EDT Narrative [facility] - 11/20/2024 10:02 PM EDT Reference Range: Males and non- females: Negative. us Shani L Effcon MXR DO LAB BLOOD ORDERABLES Final Re sult Performing Organization Address City/[facility]/ZIP Co de Phone Number [facility] [address] [place] [address] * Phosphorus (11/20/2024 9:17 PM EDT) Phosphorus, Plasma 3.5 2.5 - 4.5 mg/dL 11/20/2024 10:02 PM EDT [facility] Blood Venous blood specimen / Unknown Venipuncture / Unknown 11/20/2024 9:17 PM EDT 11/20/2024 9:20 PM EDT us Shani L Lakewood DO LAB BLOOD ORDERABLES Final Re sult [facility] [address] [place] [address] * Magnesium (11/20/2024 9:17 PM EDT) Magnesium, Plasma 2.1 1.9 - 2.4 mg/dL 11/20/2024 10:02 PM EDT [facility] Blood Venous blood specimen / Unknown Venipuncture / Unknown 11/20/2024 9:17 PM EDT 11/20/2024 9:20 PM EDT us Shani L Vonnie DO LAB BLOOD ORDERABLES Final Re sult [facility] [address] [place] [address] * (ABNORMAL) Blood gas panel, venous (11/20/2024 9:17 PM EDT) pH, Venous 7.38 7.32 - 7.43 LAB HEMATOLOGY METHOD 11/20/2024 9:21 PM EDT [facility] pCO2, Venous 44 37 - 52 mmHg LAB HEMATOLOGY METHOD 11/20/2024 9:21 PM EDT [facility] pO2, Venous 26 25 - 40 mmHg LAB HEMATOLOGY METHOD 11/20/2024 9:21 PM EDT [facility] SO2, Measured, Venous 44(L) 65 - 80 % LAB HEMATOLOGY METHOD 11/20/2024 9:21 PM EDT [facility] Base Excess, Venous 0.2 -2.0 - 3.0 mmol/L LAB HEMATOLOGY METHOD 11/20/2024 9:21 PM EDT [facility] Bicarbonate, Calculated, Venous 26 22 - 26 mmol/L LAB HEMATOLOGY METHOD 11/20/2024 9:21 PM EDT [facility] Hematocrit, Whole Blood 37.4 34.0 - 45.0 % LAB HEMATOLOGY METHOD 11/20/2024 9:21 PM EDT [facility] Sodium, Whole Blood 141 136 - 145 mmol/L LAB HEMATOLOGY METHOD 11/20/2024 9:21 PM EDT [facility] Potassium, Whole Blood 4.0 3.6 - 4.9 mmol/L LAB HEMATOLOGY METHOD 11/20/2024 9:21 PM EDT [facility] Chloride, Whole Blood 110(H) 97 - 107 mmol/L LAB HEMATOLOGY METHOD 11/20/2024 9:21 PM EDT [facility] Glucose, Whole Blood 98 74 - 99 mg/dL LAB HEMATOLOGY METHOD 11/20/2024 9:21 PM EDT [facility] Lactate, Venous, Whole Blood 1.0 0.5 - 2.2 mmol/L LAB HEMATOLOGY METHOD 11/20/2024 9:21 PM EDT [facility] Ionized Calcium, Whole Blood 4.8 4.6 - 5.1 mg/dL LAB HEMATOLOGY METHOD 11/20/2024 9:21 PM EDT [facility] Blood Venous blood specimen / Unknown Venipuncture / Unknown 11/20/2024 9:17 PM EDT 11/20/2024 9:20 PM EDT us Shani Shankar DO LAB BLOOD ORDERABLES Final Re sult [facility] [address] [place] [address] * EKG now - STAT (adult) (11/20/2024 8:52 PM EDT) EKG DIAGNOSIS CLASS Abnormal MUSE ECG Ventricular Rate 83 BPM MUSE ECG Atrial Rate 83 BPM MUSE ECG NM Interval 128 ms MUSE ECG QRSD Interval 72 ms MUSE ECG QT Interval 342 ms MUSE ECG QTC Interval 401 ms MUSE ECG P [place] 60 degrees MUSE ECG R [place] 62 degrees MUSE ECG T Wave [place] 21 degrees MUSE ECG Diagnosis Sinus rhythm [...] Reactive Non Reactive 04/18/2024 12:07 PM EDT [facility] Comment:Screening for HIV 1 & 2 antibodies, and P24 antigen is NONREACTIVE. No confirmatory testing is required. Blood Venous blood specimen / Unknown Venipuncture / Unknown 04/18/2024 10:13 AM EDT 04/18/2024 10:13 AM EDT us Shalonda Flaca Davies APRN LAB BLOOD ORDERABLES Susannah l Result Performing Organization Address City/[facility]/ZIP Co de Phone Number [facility] [address] [place] [address] * Hepatitis C Antibody - ED (02/07/2024 10:11 PM EDT) Hepatitis C Antibody Negative Negative 02/07/2024 11:11 PM EDT [facility] Blood Venous blood specimen / Unknown Venipuncture / Unknown 02/07/2024 10:11 PM EDT 02/07/2024 10:18 PM EDT us Mark Roger MD LAB BLOOD ORDERABLES Final Resu lt Performing Organization Address City/[facility] Co de Phone Number [facility] [address] [place] [address] from Last 3 Months or Most Recently [...] Patient has decision-making capacity? Yes Care Teams Education Technician Relationship Specialty Start Date End Date Rey Wyatt MD [address] [facility] [address] [place] [address] PCP - General 11/16/24 Angela Oleary, RN [facility] Registered Nurse Cardiology 02/17/24
--- OUTSIDE RECORDS SUMMARY | 2025-01-13 15:37 | XMS_ITS | Encounter Summary ---
Author Organization Healthcare Address [address] [place] [address] Care Team Providers Care Management Trainer Name Role Phone Angela Oleary RN Unavailable Unavailable Rey Wyatt MD Primary Care Provider [phone] Encounter Details Date Type Department Care Team (Late st Contact Info) Description 12/28/2024 Results Follow-Up [facility] Medicine Specialties [address], 2[address] [place] [address] Estuardo Jon MD [address] [place] [address] Social History Tobacco Use Types [...] often do you attend chur ch or nondenominational services? Never 02/22/2024 Do you [...] 0 12/15/2024 [facility] - Occupational Stress Questionnaire Answer Date Recorded [...] health care facility (including now)? 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 [phone] Cody Barnett MD [address] [place] [address] 02/10/2025 10:00 AM EDT Office Visit [facility] Endocrinology [address] [place] [address] Rachel Khan, PA [address] [facility] [address] [place] [phone] 02/16/2025 1:20 PM EDT Office Visit [facility] [place] [address] [facility], [address] [place] [address] Courtney Torres MD [address] [facility] [address] [place] [address] 03/15/2025 3:30 PM EDT Consult [facility] [address] 1[address] [place] [address] Kendy Sanchez APRN [address] [place] [address] 04/17/2025 2:00 PM EDT Office Visit [facility] Medicine Specialties [address], [address] [place] [address] Silverio Tam, BOOKER [address] [place] [address] documented as of this encounter [...] documented as of this encounter Care Teams Management Trainer Relationship Specialty [place] [address] [place] [address] [address] [place] [address] PCP - General 11/16/24 Angela Oleary, RN [facility] Registered Nurse Cardiology 02/17/24 documented as of this encounter
--- OUTSIDE RECORDS SUMMARY | 2025-01-13 15:37 | XMS_ITS | Encounter Summary ---
Author Organization [employer] Address [address] [place] [address] Care Team Providers Care Unishear Operator Name Role Phone Molly Louis MD Primary Care Provider [phone] Encounter Details Date Type Department Care Team (Late st Contact Info) Description 08/22/2024 Outside Orders [facility] Admitting [address] [place] [address] Silverio Tam, BOOKER [address] 2[address] Floor Wing [place] [id number] Esophageal reflux (Primary Dx) Social History Tobacco [...] rded Speak language other than Citizen Of [place] at home Not on file 08/13/2023 Want [...] EIA Negative Negative 08/23/2024 10:57 PM EST [employer] Comment: Performed By: [facility] [address] [place] [address] Shank Sander: Wilber Pardo MD, PhD CLIA Number: [id number] Stool 08/22/2024 11:3 5 AM EST 08/22/2024 11:36 AM EST [facility] - GENERAL ORDERAB LES Final Result Performing Organization Address City/State/[facility] [[email or web address]] Co de Phone Number [facility] [address] [place] [address], [place] [phone] * Calprotectin, Fecal by Immunoassay(SENDOUT) (08/22/2024 11:35 AM EST) Calprotectin, Fecal 26 <=49 ug/g 08/26/2024 8:14 AM EST [employer] Comment: REFERENCE INTERVAL: Calprotectin, Fecal by Immunoassay Less than 50 ug/g........Normal 50-120 ug/g..............Borderline elevated, test should be re-evaluated in 4-6 weeks. 121 ug/g or greater......Elevated Performed By: [facility] [address] [place] [address] Shank Sander: Wilber Pardo MD, PhD CLIA Number: [id number] Stool 08/22/2024 11:3 5 AM EST 08/22/2024 11:36 AM EST us [facility] - GENERAL ORDERAB LES Final Result [facility] [address] [place] [address], [place] [phone] documented in this encounter Visit Diagnoses Diagnosis Esophageal reflux- Primary documented in this encounter Care Teams Unishear Operator Relationship Specialty Start Date End Date Molly Louis MD [address] [place] [address] PCP - General 08/22/24 documented as of this encounter
--- OUTSIDE RECORDS SUMMARY | 2025-01-13 15:37 | XMS_ITS | Encounter Summary ---
Author Organization Healthcare Address [address] [place] [address] Care Team Providers Care Body Bumper Name Role Phone Molly Louis MD Primary Care Provider [phone] Angela Oleary RN Unavailable Unavailable Rey Wyatt MD Primary Care Provider [phone] Reason for Visit * Reason Onset Date Comments Med Refill 03/03/2024 Encounter Details Date Type Department Care Team ([facility] Contact Info) Description 03/03/2024 Refill Medical Office Building Obstetrics and Gynecology [address] [facility], [address] [place] [address] ArcoEarle Villagomez MD [address] [facility] [address] [place] [address] Supervision of high risk in [...] Recorded Patient Health Questionnaire-2 Score 0 02/17/2024 [facility] of Occupat [...] in a alf (including now)? No 02/09/2024 [place] Depression Scale Answer Date Recorded [place] Depression Scale Total 8 02/22/2024 The thought [...] requesting to speak with a nurse- see [facility] for details about symptoms she is experiencing. * Telephone Encounter - Luh Keenan RN - 03/04/2024 1:56 PM EDT Patient has refills on file. Needs to call pharmacy. Luh Keenan, RN documented in this encounter Plan of Treatment Upcoming Encounters Date Type Department Care Team (Late st Contact Info) Description 01/17/2025 7:00 AM EDT Appointment PAV S Endoscopy [address] [place] [address] Cody Barnett MD [address] [place] [address] 02/10/2025 10:00 AM EDT Office Visit [facility] [address] [place] [phone] Rachel Khan PA [address] [facility] [address] [place] [address] 02/16/2025 1:20 PM EDT Office Visit [facility] [place] [facility] [place] [address] [facility], [address] [place] [address] Courtney Torres MD [address] [facility] [address] [place] [address] 03/15/2025 3:30 PM EDT Consult [facility] [address], [address] [place] [address] Kendy Sanchez, TRISTAN [address] [place] [address] 04/17/2025 2:00 PM EDT Office Visit [facility] Medicine Specialties [address], [address] [place] [address] Silverio aTm PA [address] [place] [address] documented as of this encounter [...] documented as of this encounter Care Teams Body Bumper Relationship Specialty Start Date End Date Molly oLuis MD [address] [place] [phone] PCP - General Family Medicine 02/09/24 11/15/24 Rey Wyatt MD [address] [place] [address] PCP - General 11/16/24 Angela Oleary, RN [facility] Registered Nurse Cardiology 02/17/24 documented as of this encounter
--- OUTSIDE RECORDS SUMMARY | 2025-01-13 15:37 | XMS_ITS | Encounter Summary ---
Author Organization Healthcare Address [address] [place] [address] Care Team Providers Care Swift Tender Name Role Phone Molly Louis MD Primary Care Provider [phone] Angela Oleary RN Unavailable Unavailable Rey Wyatt MD Primary Care Provider [phone] Reason for Visit * Reason Onset Date Comments Med Refill 07/19/2024 Encounter Details Date Type Department Care Team (Late st Contact Info) Description 07/19/2024 Refill [facility] [address], [address] [place] [address] Paris Marion MD [address] [place] [address] Social History Tobacco Use Types Packs/Day Years [...] Recorded Patient Health Questionnaire-2 Score 0 06/22/2024 [facility] - Occupational Stress Questionnaire [...] in a jail (including now)? 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 [phone] Cody Barnett MD [address] [place] [address] 02/10/2025 10:00 AM EDT Office Visit [facility] Endocrinology [address] [place] [address] Rachel Khan PA [address] [facility] [address] [place] [address] 02/16/2025 1:20 PM EDT Office Visit [facility] [place] [address] [facility], [address] [place] [address] Courtney Torres MD [address] [facility] [address] [place] [address] 03/15/2025 3:30 PM EDT Consult [facility] [address], [address] [place] [address] Kendy Sanchez APRN [address] [place] [address] 04/17/2025 2:00 PM EDT Office Visit [facility] Medicine Specialties [address], [address] [place] [address] Silverio Tam PA [address] [place] [address] documented as of this encounter [...] documented as of this encounter Care Teams Swift Tender Relationship Specialty Start Date End Date Molly Louis MD [address] [place] [address] PCP - General Family Medicine 02/09/24 11/15/24 Rey Wytat MD [address] [place] [address] PCP - General 11/16/24 Angela Oleary, RN [facility] Registered Nurse Cardiology 02/17/24 documented as of this encounter
== END 2025-01-13 23:59 | disposition home or self-care (01) ==
PROVIDERS: PCP Nurse Practitioner Family; Visit Provider Nurse Practitioner Family
DX: G90.A Postural orthostatic tachycardia syndrome [POTS] (principal)
CPT/HCPCS: 70551

== ENCOUNTER 2025-01-18 09:59 | Outpatient (CLI) | payer MEDICAID, SELFPAY ==
--- OUTSIDE RECORDS SUMMARY | 2024-11-20 21:18 | XMS_ITS | Encounter Summary ---
Author Organization Healthcare Address [address] [place] [address] Care Team Providers Care Clinical Appeals Rn Name Role Phone Angela Oleary RN Unavailable Unavailable Rey Wyatt MD Primary Care Provider [phone] Reason for Visit * Reason Comments Multiple Complaints Encounter Details Date Type Department Care Team ([facility] st Contact Info) Description 11/20/2024 9:18 PM EDT - 11/20/2024 11:32 PM EDT Emergency [facility] Emergency Department [address] [place] [address] Leo Souza MD [address] [place] [address] Palpitations (Primary Dx) Discharge Disposition: [...] How often do you attend chur or gnosticism services? Never 02/22/2024 Do you belong to any clubs o r organizations such as zoroastrianism groups, unions, fraternal or athletic groups, or [...] Recorded Patient Health Questionnaire-2 Score 0 11/16/2024 [facility] Occupational Stress Questionnaire Answer [...] place to sleep or slept in a assisted (including now)? 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 Takes at 8PM 30 tablet 08/16/2024 famotidine (Pepcid) 20 MG tablet Take 1 tablet (20 mg) by mouth 2 (two) times a day. 60 tablet 11 08/16/2024 fludrocortisone (Florinef) 0.1 MG tabletIndications:P helen's disease Take 1 tablet by mouth daily. 30 tablet 3 11/16/2024 methIMAzole (Tapazole) 10 MG tablet Take 1 tablet by mouth daily. 60 tablet 11/11/2024 propranolol (Inderal) 20 MG tabletIndications:P helen's disease Take 1 tablet by mouth 3 (three) times a day. 90 tablet 3 11/16/2024 acetaminophen (Tylenol) 325 MG capsule Take 2 capsules (650 mg) by mouth every 6 (six) hours if needed for mild pain. 30 capsule 1 07/18/2024 Blood Glucose Monitoring Suppl ([employer] Mobile Verio Reflect) w/Device kit 04/14/2024 cholecalciferol (Vitamin D-3) 50 MCG (1999 UT) capsule 10/25/2024 ibuprofen 600 MG tablet Take 1 tablet (600 mg) by mouth every 6 (six) hours if needed for mild pain. 30 tablet 1 07/18/2024 Lancets ([employer] Mobile Delica Plus [id number]) misc 04/14/2024 ondansetron (Zofran) 4 MG tablet Take 1 tablet (4 mg) by mouth every 8 (eight) hours if needed for nausea or vomiting. 3 tablet 5 07/18/2024 Admaxim test strip 1 each by Other route if needed. 04/14/2024 potassium & sodium phosphates (Phos-NaK) 280-160-250 MG packet Take 1 packet by mouth 1 (one) time each day. 30 packet 1 03/16/2024 Vit-Fe Fumarate-FA ( Vitamins) 28-0.8 MG tablet Take 1 tablet by mouth 1 (one) time each day. 30 tablet 11 03/17/2024 03/17/20 25 senna-docusate (Codi-Colace) 8.6-50 MG tablet Take 1 tablet by mouth 1 (one) time each day. 30 tablet 1 07/18/2024 sodium chloride ([place] Nasal Sullivan) 0.65 % nasal spray Administer 1 spray [...] for 5 days. 53 tablet 11/14/2024 12/17/19 25 documented as of this encounter Miscellaneous Notes * Significant Event - Jaren Lares, - 11/20/2024 10:29 PM EDT Endocrinology Significant [...] 4 months currently. History provided by: Patient college hire used: No Patient History Medical History[1] Surgical [...] baseline. Comments: Awake Psychiatric: Behavior: Behavior normal. [place] Coma Scale Score: 15 ED Course & [...] 2221 I did discuss with endocrinology provider preparation supervisor freezing- at her current T4 level they would [...] documented. * ED Triage Notes - Marcio Frost, RN - 11/20/2024 8:36 PM EDT Pt states she thinks she is going into a thyroid storm, pt states she was discharged from ICU 2 weeks ago with this. Pt c/o palpitations, diarrhea, and weakness. documented in this encounter Plan of Treatment Upcoming Encounters Date Type Department Care Team (Late st Contact Info) Description 02/10/2025 10:00 AM EDT Office Visit [facility] Endocrinology [address] [place] [address] Rachel Khan PA [address] [place] [phone] 02/16/2025 1:20 PM EDT Office Visit [facility] [address] [facility], [address] [place] [address] Courtney Torres MD [address] [place] [address] 03/15/2025 3:30 PM EDT Consult [facility] [address] [place] [address] Kendy Sanchez APRN [address] [place] [address] 04/17/2025 2:00 PM EDT Office Visit [facility] [address] [place] [phone] Silverio Tam PA [address] [place] [address] Scheduled Orders Name Type Priority [...] Aly Posada MD on 11/20/2024 9:49 PM us Radha Trujillo DO IMG XR PROCEDURES Final Resul t * CBC (11/20/2024 9:17 PM EDT) WBC Count 4.69 3.70 - 10.30 10*3/uL LAB HEMATOLOGY METHOD 11/20/2024 9:[address] [facility] RBC Count 4.26 3.90 - 5.20 10*6/uL LAB HEMATOLOGY METHOD 11/20/2024 9:[address] [facility] HGB 11.8 11.2 - 15.7 g/dL LAB HEMATOLOGY METHOD 11/20/2024 9:[address] [facility] HCT 35.8 34.0 - 45.0 % LAB HEMATOLOGY METHOD 11/20/2024 9:[address] [facility] Platelet Count 197 155 - 369 10*3/uL LAB HEMATOLOGY METHOD 11/20/2024 9:[address] [facility] MCV 84 79 - 98 fL LAB HEMATOLOGY METHOD 11/20/2024 9:[address] [facility] MCH 27.7 26.0 - 32.0 pg LAB HEMATOLOGY METHOD 11/20/2024 9:[address] [facility] MCHC 33.0 30.7 - 35.5 g/dL LAB HEMATOLOGY METHOD 11/20/2024 9:[address] [facility] RDW 12.5 11.5 - 14.5 % LAB HEMATOLOGY METHOD 11/20/2024 9:[address] [facility] MPV 11.6 8.8 - 12.5 fL LAB HEMATOLOGY METHOD 11/20/2024 9:[address] [facility] nRBC 0.0 <=0.0 per 100 WBCs LAB HEMATOLOGY METHOD 11/20/2024 9:[address] [facility] Blood Venous blood specimen / Unknown Venipuncture / Unknown 11/20/2024 9:17 PM EDT 11/20/2024 9:20 PM EDT us Radha Trujillo DO LAB BLOOD ORDERABLES Final Re sult [facility] [address] [place] [address] * (ABNORMAL) Blood gas panel, venous (11/20/2024 9:17 PM EDT) pH, Venous 7.38 7.32 - 7.43 LAB HEMATOLOGY METHOD 11/20/2024 9:[address] [facility] pCO2, Venous 44 37 - 52 mmHg LAB HEMATOLOGY METHOD 11/20/2024 9:[address] [facility] pO2, Venous 26 25 - 40 mmHg LAB HEMATOLOGY METHOD 11/20/2024 9:[address] [facility] SO2, Measured, Venous 44(L) 65 - 80 % LAB HEMATOLOGY METHOD 11/20/2024 9:[address] [facility] Base Excess, Venous 0.2 -2.0 - 3.0 mmol/L LAB HEMATOLOGY METHOD 11/20/2024 9:[address] [facility] Bicarbonate, Calculated, Venous 26 22 - 26 mmol/L LAB HEMATOLOGY METHOD 11/20/2024 9:[address] [facility] Hematocrit, Whole Blood 37.4 34.0 - 45.0 % LAB HEMATOLOGY METHOD 11/20/2024 9:[address] [facility] Sodium, Whole Blood 141 136 - 145 mmol/L LAB HEMATOLOGY METHOD 11/20/2024 9:[address] [facility] Potassium, Whole Blood 4.0 3.6 - 4.9 mmol/L LAB HEMATOLOGY METHOD 11/20/2024 9:[address] [facility] Chloride, Whole Blood 110(H) 97 - 107 mmol/L LAB HEMATOLOGY METHOD 11/20/2024 9:[address] [facility] Glucose, Whole Blood 98 74 - 99 mg/dL LAB HEMATOLOGY METHOD 11/20/2024 9:[address] [facility] Lactate, Venous, Whole Blood 1.0 0.5 - 2.2 mmol/L LAB HEMATOLOGY METHOD 11/20/2024 9:[address] [facility] Ionized Calcium, Whole Blood 4.8 4.6 - 5.1 mg/dL LAB HEMATOLOGY METHOD 11/20/2024 9:[address] [facility] Blood Venous blood specimen / Unknown Venipuncture / Unknown 11/20/2024 9:17 PM EDT 11/20/2024 9:20 PM EDT us Radha Trujillo DO LAB BLOOD ORDERABLES Final Re sult [facility] [address] [place] [address] * (ABNORMAL) Free T4, Plasma (11/20/2024 9:17 PM EDT) Free T4, Plasma 2.4(H) 0.8 - 1.7 ng/dL 11/20/2024 9:[address] [facility] Blood Venous blood specimen / Unknown Venipuncture / Unknown 11/20/2024 9:17 PM EDT 11/20/2024 9:[address] [facility] - 11/20/2024 9:47 PM EDT Free T4 Trimester Specific Ranges 1st Trimester 0.9 - 1.50 ng/dL 2nd Trimester 0.7 - 1.40 ng/dL 3rd Trimester 0.7 - 1.24 ng/dL Datto LAB BLOOD ORDERABLES Final Re sult Performing Organization Address City/[facility]/ZIP Co de Phone Number [facility] [address] [place] [address] * (ABNORMAL) Thyroid Stimulating Hormone, Plasma (11/20/2024 9:17 PM EDT) Thyroid Stimulating Hormone, Plasma <0.01(L) 0.40 - 4.20 uIU/mL 11/20/2024 10:[address] [facility] Blood Venous blood specimen / Unknown Venipuncture / Unknown 11/20/2024 9:17 PM EDT 11/20/2024 9:[address] [facility] - 11/20/2024 10:02 PM EDT Trimester Specific Ranges TSH ( IU/mL) 1st Trimester 0.1 - 3.0 2nd Trimester 0.19 - 4.06 3rd Trimester 0.3 - 3.7 Datto LAB BLOOD ORDERABLES Final Re sult Performing Organization Address [facility]/ZIP Co de Phone Number [facility] [address] [place] [address] * Troponin now and 120 min (11/20/2024 9:17 PM EDT) Pathologist [facility] Troponin T, High Sensitivity, 0 Hour <6 <14 ng/L 11/20/2024 9:[address] [facility] Blood Venous blood specimen / Unknown Venipuncture / Unknown 11/20/2024 9:17 PM EDT 11/20/2024 9:20 PM EDT Idhasoft DO LAB BLOOD ORDERABLES Final Re sult Performing Organization Address City/[facility]/ZIP Co de Phone Number [facility] [address] [place] [address] * Phosphorus (11/20/2024 9:17 PM EDT) Pathologist [facility] Phosphorus, Plasma 3.5 2.5 - 4.5 mg/dL 11/20/2024 10:[address] [facility] Blood Venous blood specimen / Unknown Venipuncture / Unknown 11/20/2024 9:17 PM EDT 11/20/2024 9:20 PM EDT us Radha L Serafina DO LAB BLOOD ORDERABLES Final Re sult Performing Organization Address City/[facility]/ZIP Co de Phone Number [facility] [address] [place] [address] * Magnesium (11/20/2024 9:17 PM EDT) Magnesium, Plasma 2.1 1.9 - 2.4 mg/dL 11/20/2024 10:[address] [facility] Blood Venous blood specimen / Unknown Venipuncture / Unknown 11/20/2024 9:17 PM EDT 11/20/2024 9:20 PM EDT us Radha L FlickIM DO LAB BLOOD ORDERABLES Final Re sult Performing Organization Address City/[facility]/ZIP Co de Phone Number [facility] [address] [place] [address] * (ABNORMAL) CMP (11/20/2024 9:17 PM EDT) Glucose, Plasma 100(H) 74 - 99 mg/dL 11/20/2024 10:[address] [facility] BUN, Plasma 12 7 - 21 mg/dL 11/20/2024 10:[address] [facility] Creatinine, Plasma 0.89 0.60 - 1.10 mg/dL 11/20/2024 10:[address] [facility] BUN/Creatinine Ratio 13 11/20/2024 10:[address] [facility] Sodium, Plasma 143 136 - 145 mmol/L 11/20/2024 10:[address] [facility] Potassium, Plasma 4.2 3.6 - 4.9 mmol/L 11/20/2024 10:[address] [facility] Chloride, Plasma 106 97 - 107 mmol/L 11/20/2024 10:[address] [facility] CO2, Plasma 24 22 - 29 mmol/L 11/20/2024 10:[address] [facility] Anion Gap 13 6 - 16 mmol/L 11/20/2024 10:[address] [facility] Total Calcium, Plasma 9.8 8.9 - 10.2 mg/dL 11/20/2024 10:[address] [facility] Total Protein 7.4 6.3 - 7.9 g/dL 11/20/2024 10:[address] [facility] Albumin, Plasma 4.4 3.5 - 5.2 g/dL 11/20/2024 10:[address] [facility] AST, Plasma 13 10 - 35 U/L 11/20/2024 10:[address] [facility] ALT, Plasma 14 10 - 35 U/L 11/20/2024 10:[address] [facility] Alkaline Phosphatase, Plasma 53 35 - 104 U/L 11/20/2024 10:[address] [facility] Total Bilirubin, Plasma 1.0 0.2 - 1.1 mg/dL 11/20/2024 10:[address] [facility] eGFRcr 91.8 mL/min/1.7 3m*2 11/20/2024 10:[address] [facility] Comment:Reported eGFRcr in m L/min/1.73m2 is based the CKD-EPI 2020 equation that does not use a race coefficient. Blood Venous blood specimen / Unknown Venipuncture / Unknown 11/20/2024 9:17 PM EDT 11/20/2024 9:20 PM EDT us Radha Trujillo DO LAB BLOOD ORDERABLES Final Re sult [facility] [address] [place] [address] * hCG qualitative (11/20/2024 9:17 PM EDT) Test Negative Negative 11/20/2024 10:[address] [facility] Blood Venous blood specimen / Unknown Venipuncture / Unknown 11/20/2024 9:17 PM EDT 11/20/2024 9:[address] [facility] - 11/20/2024 10:02 PM EDT Reference Range: Males and non- females: Negative. us Radha Trujillo DO LAB BLOOD ORDERABLES Final Re sult Performing Organization Address City/[facility] Co de Phone Number [facility] [address] [place] [address] * EKG now - STAT (adult) (11/20/2024 8:52 PM EDT) EKG DIAGNOSIS CLASS Abnormal MUSE ECG Ventricular Rate 83 BPM MUSE ECG Atrial Rate 83 BPM MUSE ECG SC Interval 128 ms MUSE ECG QRSD Interval 72 ms MUSE ECG QT Interval 342 ms MUSE ECG QTC Interval 401 ms MUSE ECG P [place] 60 degrees MUSE ECG R [place] 62 degrees MUSE ECG T Wave [place] 21 degrees MUSE ECG Diagnosis Sinus rhythm with occasional premature ventricular complexes MUSE ECG Diagnosis Cannot rule out Anterior infarct , age undetermined MUSE ECG Diagnosis Abnormal ECG MUSE ECG Diagnosis MUSE ECG Diagnosis Confirmed by Tay Barraza ([id number]) on 11/21/2024 1:40:03 PM MUSE ECG 11/20/2024 8:52 PM EDT 11/21/2024 1:40 PM EDT Leo Souza MD ECG ORDERABLES Final Resu lt Performing Organization Address [facility] Co de Phone Number MUSE ECG documented [...] 1 dose, On 11/20/24 at 2100, STAT 2123 (New Bag - Prov ider: Jolene Veras RN) ondansetron (Zofran) injection 4 mg (COMPLETED) 4 mg, Intravenous, Once, 1 dose, On 11/20/24 at 2100, STAT 2123 (Given - Provid er: Jolene Veras RN) documented in this encounter Additional Health Concerns [...] documented as of this encounter Care Teams Clinical Appeals Rn Relationship Specialty Start Date End Date Rey Wyatt MD [address] [place] [address] PCP - General 11/16/24 Angela Oleary, RN [facility] Registered Nurse Cardiology 02/17/24 documented as of this encounter
--- OUTSIDE RECORDS SUMMARY | 2024-12-07 07:03 | XMS_ITS | Encounter Summary ---
Author Organization [facility] Address [address] [place] [address] Care Team Providers Care Director Home Name Role Phone Angela Oleary RN Unavailable Unavailable Rey Wyatt MD Primary Care Provider [phone] Reason for Referral * Imaging (Routine) - Closed Specialty Diagnoses / Procedures Referred By Mili joe Referred To Contact Gastroenterology Diagnoses Hematochezia Abdominal pain, epigastric Procedures Patency Capsule Silverio Tam PA [address] [place] [address] Phone: tel: fax: Referral ID Status Reason Start Date Expiration Date V isits Requested Visits Authorized [id number] Closed Specialty Services Required 10/17/2024 04/18/2026 1 1 Reason for Visit * Imaging (Routine) - Closed Specialty Diagnoses / Procedures Referred By Contac t Referred To Contact Gastroenterology Diagnoses Hematochezia Abdominal pain, epigastric Procedures Patency Capsule Silverio Tam PA [address] [place] [address] Phone: tel: fax: Referral ID Status Reason Start Date Expiration Date V isits Requested Visits Authorized [id number] Closed Specialty Services Required 10/17/2024 04/18/2026 1 1 Encounter Details Date Type Department Care Team (Latest Contact Info) Description 12/07/2024 7:03 AM EDT - 12/07/2024 11:59 PM EDT Hospital Encounter [facility] [address] [place] [address] Estuardo Jon MD [address] [place] [address] Diarrhea, unspecified type (Primary Dx); Hematochezia; Abdominal pain, epigastric Discharge Disposition: Home or Self Care Social [...] often do you attend chur ch or episcopalian services? Never 02/22/2024 Do you belong to any clubs o r organizations such as rastafarian groups, unions, fraternal or athletic groups, or [...] Date Recorded Patient Health Questionnaire-2 Score 0 12/15/2024 [facility] - Occupational Stress Questionnaire Answer Date [...] place to sleep or slept in a half-way (including now)? No 02/09/2024 [place]aver[place] Depression Scale Answer Date Recorded [place] Depression Scale Total 6 08/08/2024 The thought of harming myself has occurred to me . 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 0 07/16/2024 CAGE Questionnaire Score 0 024 Utilities Answer Date Recorded In the past 12 months has th e [employer], gas, oil, or water [employer] threatened to shut off services in your home? No 02/09/2024 Comments No Sex and Gender Information Value Date Recorded Sex Assigned at Not on file Legal Sex Female 7:36 PM EDT Gender Identity Not on file Sexual Orientation Not on file documented as of this encounter Last Filed Vital Signs Vital Sign Reading Time Taken Comments Blood Pressure 103/71 12/07/2024 7:30 AM EDT Pulse 82 12/07/2024 7:30 AM EDT Temperature 36.8 C (98.3 F) 12/07/2024 7:30 AM EDT Respiratory Rate 16 12/07/2024 7:30 AM EDT Oxygen Saturation 100% 12/07/2024 7:30 AM EDT Inhaled Oxygen Concentration - - Weight 62.1 kg (136 lb 14.5 oz) 12/07/2024 7:30 AM EDT Height 165.1 cm (5' 5 ) 12/07/2024 7:30 AM EDT Body Mass Index 22.78 12/07/2024 7:30 AM EDT documented in this encounter Medications at Time [...] capsule 1 07/18/2024 Blood Glucose Monitoring Suppl ([employer] Verio Reflect) w/Device kit 04/14/2024 cholecalciferol (Vitamin D-3) 50 MCG (1999 UT) capsule 10/25/2024 ibuprofen 600 MG tablet Take 1 tablet (600 mg) by mouth every 6 (six) hours if needed for mild pain. 30 tablet 1 07/18/2024 Lancets ([employer] Delica Plus [id number]) [facility] 04/14/2024 ondansetron (Zofran) 4 MG tablet Take 1 tablet (4 mg) by mouth every 8 (eight) hours if needed for nausea or vomiting. 3 tablet 5 07/18/2024 Celaton Verio test strip 1 each by Other [...] day. 30 tablet 1 07/18/2024 sodium chloride ([place] Nasal [place]) 0.65 % nasal spray Administer 1 spray [...] 12/17/19 25 documented as of this encounter Plan of Treatment Upcoming Encounters Date Type Department Care Team (Late st Contact Info) Description 02/10/2025 10:00 AM EDT Office Visit [facility] Endocrinology [address] [place] [phone] Rachel Khan, PA [address] [facility] [address] [place] [id number] 02/16/2025 1:20 PM EDT Office Visit [facility] [place] [address] [facility], [address] [place] [address] Courtney Torres MD [address] [facility] [address] [place] [address] 03/15/2025 3:30 PM EDT [facility] [address] [place] [address] Kendy Sanchez, ANCILLARY SERVICES MANAGER [address] [place] [address] 04/17/2025 2:00 PM EDT [facility] [address] [place] [address] Silverio Tam PA [address] [place] [address] documented as of this encounter Goals Goal Patient Goal Type Associated Problems Recent Progress Patient-Stated? Author Delayed Delivery Care Plan CPM S22 PP LABOR (OBSTETRICS) No Open Scheduling, Background documented as of this encounter Procedures Procedure Name Priority Date/Time Associated Diagnosis Comments PATENCY CAPSULE Routine 12/07/2024 7:03 AM EDT Hematochezia Abdominal pain, epigastric documented in this encounter Results * XR Abdomen 1 View (12/28/2024 9:40 AM EDT) Anatomical Region Laterality Modality Body Digital Radiogra phy Estuardo Jon MD IMG XR PROCEDURES Final Result * Patency Capsule (12/07/2024 7:03 AM EDT) Anatomical Region Laterality Modality Endoscopy Narrative 12/09/2024 8:35 AM EDT No abdominal X ray in 24 hours of patency capsule placement. Will likely need the patency capsule repeated. us Silverio CELESTE GI PROCEDURE ORDERABLES Final Result documented in this encounter Visit Diagnoses Diagnosis Diarrhea, unspecified type- Primary Hematochezia Blood in stool Abdominal pain, epigastric documented in this encounter Additional Health Concerns Active Problems Noted Date Diagnosed Date CPM S22 PP LABOR (OBSTETRICS) 02/24/2024 Assessment Noted Time PHQ-9 Depression Total Score: 0 11/17/19 25 3:00 PM EDT A fall risk assessment has been complete d for the patient 11/16/2024 3:02 PM EDT A Body Mass Index follow-up plan has been documented for the patient 11/16/2024 7:54 PM EDT documented as of this encounter Care Teams Director Home Relationship Specialty Start Date End Date Rey Wyatt MD [address] [facility] [address] [place] [address] PCP - General 11/16/24 Angela Oleary, RN [facility] Registered Nurse Cardiology 02/17/24 documented as of this encounter
--- OUTSIDE RECORDS SUMMARY | 2024-12-15 14:30 | XMS_ITS | Encounter Summary ---
Author Organization [facility] Address [address] [place] [address] Care Team Providers Care Gasket Winder Name Role Phone Angela Oleary RN Unavailable Unavailable Rey Wyatt MD Primary Care Provider [phone] Reason for Referral * Consultation (Routine) - Authorized Specialty Diagnoses / Procedures Referred By Mili joe Referred To Contact Diagnoses Abdominal pain, epigastric Diarrhea, unspecified type Postural orthostatic tachycardia syndrome (POTS) Hematochezia Silverio Tam PA [id number] [place] [address] Phone: tel: fax: Referral ID Status Reason Start Date Expiration Date V isits Requested Visits Authorized [id number] Authorized 12/15/2024 06/16/2026 1 1 Reason for Visit * Reason Comments Hematochezia Encounter Details Date Type Department Care Team (Late st Contact Info) Description 12/15/2024 2:30 PM EDT [facility] [address] [place] [address] [facility]io Tam [facility] [address] [facility] [address] [place] [address] Weight loss (Primary Dx); Abdominal [...] week 02/22/2024 How often do you attend [facility] or christianity services? Never 02/22/2024 Do you belong to any clubs o r organizations such as sikhism groups, unions, fraternal or athletic groups, or [...] Recorded Patient Health Questionnaire-2 Score 0 12/15/2024 [facility] - Occupational Stress Questionnaire Answer Date [...] a group home (including now)? 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 0 07/16/2024 CAGE Questionnaire Score 0 024 Utilities Answer Date Recorded In the past 12 months has th e [employer], gas, oil, or water company threatened to [...] disease. She is supposed also be seeing [facility] for her POTs; but may also [...] 10 - 19 Clotting disorder Mother Avril fagna Immunodeficiency Mother Avril fagan Thyroid disease Mother [...] min Stress: No Stress Concern Present (02/22/2024) [facility] - Occupational Stress Questionnaire Feeling of Stress : Not at all Social Connections: Moderately Isolated (02/22/2024) Social Connection and Isolation Panel [NHANES] Frequency of Communication with Friends and Family: More than three times a week Frequency of Social Gatherings with Friends and Family: Once a week Attends Sikh Services: Never Active Member of Clubs or [...] day before colonoscopy Blood Glucose Monitoring Suppl (codetag Verio Reflect) w/Device kit busPIRone (BUSPAR) 5 [...] mg, Oral, Every 6 hours PRN Lancets (VicariousTouch Delica Plus [id number]) misc methIMAzole (TAPAZOLE) 10 mg, Oral, Daily ondansetron (ZOFRAN) 4 mg, Oral, Every 8 hours PRN ondansetron ODT (ZOFRAN-ODT) 4 mg, Oral, Every 8 hours PRN VicariousTouch Verio test strip 1 each, As needed [...] tablet 1 tablet, Oral, Daily sodium chloride ([place] Nasal [place]) 0.65 % nasal spray 1 spray, Each [...] 04/26/2002 Influenza, injectable, quadrivalent, preservative free 04/29/2023 [place] COVID-19 Vaccine (Blue Cap) 18+ 02/21/2021 MMR [...] EDT Office Visit [facility] [address] [place] [id number] Rachel Khan PA [address] [facility] [address] [place] [phone] 02/16/2025 1:20 PM EDT Office Visit [facility] Rincon [address] [place] [address] Courtney Torres MD [address] [place] [address] 03/15/2025 3:30 PM EDT Consult [facility] [address] [place] [address] Kendy Sanchez, TRAIN CLERK [address] [place] [address] 04/17/2025 2:00 PM EDT [facility] [address] [place] [address] Silverio Tam PA [address] [place] [address] Scheduled Referrals Name Type Priority [...] Detected Not Detected 12/19/2024 2:[address] [facility] Blood Venous blood specimen / Unknown Venipuncture / Unknown 12/15/2024 3:29 PM EDT 12/15/2024 3:[address] [facility] - 12/19/2024 2:26 PM EDT [...] [facility]LE[facility] LAB BLOOD ORDERABLES Final Res ult [facility] [address] [place] [address] * T3 (12/15/2024 3:29 PM EDT) T3, Serum 177 87 - 187 ng/dL 12/15/2024 4:[address] [facility] Blood Venous blood specimen / Unknown Venipuncture / Unknown 12/15/2024 3:29 PM EDT 12/15/2024 3:30 PM EDT us Silverio [facility]LE[facility] LAB BLOOD ORDERABLES Final Res ult Performing Organization Address City/[facility]/ZIP Co de Phone Number [facility] [address] [place] [address] * (ABNORMAL) CBC and Differential (12/15/2024 3:29 PM EDT) [facility] WBC Count 5.38 3.70 - 10.30 10*3/uL LAB HEMATOLOGY METHOD 12/15/2024 4:[address] [facility] RBC Count 4.81 3.90 - 5.20 10*6/uL LAB HEMATOLOGY METHOD 12/15/2024 4:[address] [facility] HGB 12.6 11.2 - 15.7 g/dL LAB HEMATOLOGY METHOD 12/15/2024 4:[address] [facility] HCT 39.7 34.0 - 45.0 % LAB HEMATOLOGY METHOD 12/15/2024 4:[address] [facility] Platelet Count 311 155 - 369 10*3/uL LAB HEMATOLOGY METHOD 12/15/2024 4:[address] [facility] MCV 83 79 - 98 fL LAB HEMATOLOGY METHOD 12/15/2024 4:[address] [facility] MCH 26.2 26.0 - 32.0 pg LAB HEMATOLOGY METHOD 12/15/2024 4:[address] [facility] MCHC 31.7 30.7 - 35.5 g/dL LAB HEMATOLOGY METHOD 12/15/2024 4:[address] [facility] RDW 12.2 11.5 - 14.5 % LAB HEMATOLOGY METHOD 12/15/2024 4:[address] [facility] MPV 11.2 8.8 - 12.5 fL LAB HEMATOLOGY METHOD 12/15/2024 4:[address] [facility] nRBC 0.0 <=0.0 per 100 WBCs LAB HEMATOLOGY METHOD 12/15/2024 4:[address] [facility] Differential Type Automated LAB HEMATOLOGY METHOD 12/15/2024 4:[address] [facility] Neutrophils % 61 % LAB HEMATOLOGY METHOD 12/15/2024 4:[address] [facility] Lymphocytes % 32 % LAB HEMATOLOGY METHOD 12/15/2024 4:[address] [facility] Monocytes % 5 % LAB HEMATOLOGY METHOD 12/15/2024 4:[address] [facility] Eosinophils % 1 % LAB HEMATOLOGY METHOD 12/15/2024 4:[address] [facility] Basophils % 1 % LAB HEMATOLOGY METHOD 12/15/2024 4:[address] [facility] Immature Granulocytes % 0 % LAB HEMATOLOGY METHOD 12/15/2024 4:[address] [facility] Neutrophils Absolute 3.33 1.60 - 6.10 10*3/uL LAB HEMATOLOGY METHOD 12/15/2024 4:[address] [facility] Lymphocytes Absolute 1.70 1.20 - 3.90 10*3/uL LAB HEMATOLOGY METHOD 12/15/2024 4:[address] [facility] Monocytes Absolute 0.25(L) 0.30 - 0.90 10*3/uL LAB HEMATOLOGY METHOD 12/15/2024 4:[address] [facility] Eosinophils Absolute 0.03 0.00 - 0.50 10*3/uL LAB HEMATOLOGY METHOD 12/15/2024 4:[address] [facility] Basophils Absolute 0.05 0.00 - 0.10 10*3/uL LAB HEMATOLOGY METHOD 12/15/2024 4:[address] [facility] Immature Granulocytes Absolute 0.02 0.00 - 0.06 10*3/uL LAB HEMATOLOGY METHOD 12/15/2024 4:[address] [facility] Blood Venous blood specimen / Unknown Venipuncture / Unknown 12/15/2024 3:29 PM EDT 12/15/2024 3:[address] [facility] - 12/15/2024 4:38 PM EDT Therapeutic decision making should be based on absolute values, rather than percentages. us Silverio [facility] BLOOD ORDERABLES Final Res ult [facility] [address] [place] [address] * (ABNORMAL) Comprehensive Metabolic Panel, Plasma (12/15/2024 3:29 PM EDT) Glucose, Plasma 84 74 - 99 mg/dL 12/15/2024 4:[address] [facility] BUN, Plasma 8 7 - 21 mg/dL 12/15/2024 4:[address] [facility] Creatinine, Plasma 0.60 0.60 - 1.10 mg/dL 12/15/2024 4:[address] [facility] BUN/Creatinine Ratio 13 12/15/2024 4:[address] [facility] Sodium, Plasma 140 136 - 145 mmol/L 12/15/2024 4:[address] [facility] Potassium, Plasma 4.1 3.6 - 4.9 mmol/L 12/15/2024 4:[address] [facility] Chloride, Plasma 105 97 - 107 mmol/L 12/15/2024 4:[address] [facility] CO2, Plasma 21(L) 22 - 29 mmol/L 12/15/2024 4:[address] [facility] Anion Gap 14 6 - 16 mmol/L 12/15/2024 4:[address] [facility] Total Calcium, Plasma 9.4 8.9 - 10.2 mg/dL 12/15/2024 4:[address] [facility] Total Protein 8.1(H) 6.3 - 7.9 g/dL 12/15/2024 4:[address] [facility] Albumin, Plasma 4.6 3.5 - 5.2 g/dL 12/15/2024 4:[address] [facility] AST, Plasma 16 10 - 35 U/L 12/15/2024 4:[address] [facility] ALT, Plasma 23 10 - 35 U/L 12/15/2024 4:[address] [facility] Alkaline Phosphatase, Plasma 58 35 - 104 U/L 12/15/2024 4:[address] [facility] Total Bilirubin, Plasma 0.7 0.2 - 1.1 mg/dL 12/15/2024 4:[address] [facility] eGFRcr 127.1 mL/min/1.7 3m*2 12/15/2024 4:[address] [facility] Comment:Reported eGFRcr in m L/min/1.73m2 is based the CKD-EPI 2020 equation that does not use a race coefficient. Blood Venous blood specimen / Unknown Venipuncture / Unknown 12/15/2024 3:29 PM EDT 12/15/2024 3:30 PM EDT us Silverio [facility] LAB BLOOD ORDERABLES Final Res ult [facility] [address] [place] [address] * Prothrombin Time/INR (12/15/2024 3:29 PM EDT) Prothrombin Time 13.7 12.0 - 14.3 sec LAB COAGULATION METHOD 12/15/2024 5:[address] [facility] INR 1.0 0.9 - 1.1 LAB COAGULATION METHOD 12/15/2024 5:[address] [facility] Blood Venous blood specimen / Unknown Venipuncture / Unknown 12/15/2024 3:29 PM EDT 12/15/2024 3:[address] [facility] - 12/15/2024 5:05 PM EDT OPTIMAL INR RANGES FOR PATIENT ON ORAL ANTICOAGULANT THERAPY Prevention of venous thromboembolism INR 2.0 to 3.0 In patients with heart disease: Atrial fibrillation INR 2.0 to 3.0 Valvular heart disease INR 2.0 to 3.0 Tissue heart valves INR 2.0 to 3.0 Mechanical prosthetic valves INR 2.5 to 3.5 Prevention of recurrent WI INR 2.5 to 3.5 [facility] BLOOD ORDERABLES Final Res ult [facility] [address] [place] [address] * (ABNORMAL) Brayan Henson IgG Ab (12/15/2024 3:29 PM EDT) EBV ANTIBODY TO VIRAL CAPSID ANTIGEN IGG 185.0(H) 0.0 - 21.9 U/mL 12/18/2024 11:11 AM EDT [facility]) Blood Venous blood specimen / Unknown Venipuncture / Unknown 12/15/2024 3:29 PM EDT 12/15/2024 3:30 PM EDT Narrative [facility] [facility]) - 12/18/2024 11:11 AM EDT INTERPRETIVE INFORMATION: Brayan-Henson Virus Antibody to Viral Capsid Antigen, IgG 17.9 U/mL or less.......Not Detected 18.0-21.9 U/mL..........Indeterminate - Repeat testing in 10-14 days may be helpful. 22.0 U/mL or greater....Detected Performed By: [facility] [address] [place] [address] [employer]: Wilber Pardo MD, PhD CLIA Number: [id number] [facility] BLOOD ORDERABLES Final Res ult [facility]) [address] [place] [address] * Brayan-Henson virus VCA, IgM (12/15/2024 3:29 PM EDT) EBV ANTIBODY TO VIRAL CAPSID ANTIGEN IGM <10.0 0.0 - 43.9 U/mL 12/18/2024 11:09 AM EDT [facility]) Blood Venous blood specimen / Unknown Venipuncture / Unknown 12/15/2024 3:29 PM EDT 12/15/2024 3:30 PM EDT Narrative [facility] - 12/18/2024 11:09 AM EDT INTERPRETIVE INFORMATION: Brayan-Henson Virus Antibody to Viral Capsid Antigen, IgM 35.9 U/mL or less.......Not Detected 36.0-43.9 U/mL..........Indeterminate - Repeat testing in 10-14 days may be helpful. 44.0 U/mL or greater....Detected Performed By: [facility] [address] [place] [address] [employer]: Wilber Pardo MD, PhD CLIA Number: [id number] us [facility] BLOOD ORDERABLES Final Res ult [facility] [address] [place] [address] documented in this encounter Visit Diagnoses Diagnosis [...] documented as of this encounter Care Teams Gasket Winder Relationship Specialty [place] [address] [place] [address] [place] [address] PCP - General 11/16/24 Angela Oleary, RN [facility] Registered Nurse Cardiology 02/17/24 documented as of this encounter
--- OUTSIDE RECORDS SUMMARY | 2025-01-17 06:36 | XMS_ITS | Encounter Summary ---
Author Organization [facility] Address [address] [place] [address] Care Team Providers Care Recycling Coordinator Name Role Phone Angela Oleary RN Unavailable Unavailable Rey Wyatt MD Primary Care Provider [phone] Reason for Referral * Imaging (Routine) - Closed Specialty Diagnoses / Procedures Referred By Mili joe Referred To Contact Gastroenterology Diagnoses Abdominal pain, epigastric Diarrhea, unspecified type Weight loss Hematochezia Procedures Capsule Endoscopy Silverio Tam PA [address] [address] Phone: tel: fax: Referral ID Status Reason Start Date Expiration Date V isits Requested Visits Authorized [id number] Closed Specialty Services Required 12/28/2024 06/29/2026 1 1 Reason for Visit * Imaging (Routine) - Closed Specialty Diagnoses / Procedures Referred By Mili joe Referred To Contact Gastroenterology Diagnoses Abdominal pain, epigastric Diarrhea, unspecified type Weight loss Hematochezia Procedures Capsule Endoscopy Silverio Tam PA [address] [facility] [address] [place] [address] Phone: tel: fax: Referral ID Status Reason Start Date Expiration Date V isits Requested Visits Authorized [id number] Closed Specialty Services Required 12/28/2024 06/29/2026 1 1 Encounter Details Date Type Department Care Team (Latest Contact Info) Description 01/17/2025 6:36 AM EDT - 01/17/2025 11:59 PM EDT Hospital Encounter [facility] Endoscopy [address] [place] [address] Cody Barnett MD [address] [place] [address] Abdominal pain, epigastric; Diarrhea, unspecified [...] often do you attend chur ch or latter-day services? Never 02/22/2024 Do you [...] Recorded Patient Health Questionnaire-2 Score 0 12/15/2024 [facility] Occupat ional [facility] - Occupational [...] in a chcf (including now)? No 02/09/2024 [place] Depression Scale Answer Date Recorded [place] Depression Scale Total 6 08/08/2024 The thought [...] drink first t casi in the morning (EYE-PROVIDER SCRIBE) to steady your nerves or to get rid of a hangover? 0 07/16/2024 CAGE Questionnaire Score 0 024 Utilities Answer Date Recorded In the past 12 months has th e [employer] [place], gas, oil, or water [employer] threatened to shut off services in your [...] this encounter Medications at Time of Discharge famotidine (Pepcid) 20 MG tablet Take 1 tablet (20 mg) by mouth 2 (two) times a day. 60 tablet 11 08/16/2024 propranolol (Inderal) 20 MG tabletIndications:P helen's disease Take 1 tablet by mouth 3 (three) times a day. 90 tablet 3 11/16/2024 acetaminophen (Tylenol) 325 MG capsule Take 2 capsules (650 mg) by mouth every 6 (six) hours if needed for mild pain. 30 capsule 1 07/18/2024 Blood Glucose Monitoring Suppl (LocalMedTouch Verio Reflect) w/Device kit 04/14/2024 cefdinir (Omnicef) 300 MG capsule take one capsule by mouth every twelve hours for 10 days 12/08/2024 cholecalciferol (Vitamin D-3) 50 MCG (2000 UT) capsule 10/25/2024 fluticasone (Flonase) 50 MCG/ACT nasal spray Administer 1 spray into each nostril daily. 12/08/2024 ibuprofen 600 MG tablet Take 1 tablet (600 mg) by mouth every 6 (six) hours if needed for mild pain. 30 tablet 1 07/18/2024 Lancets ([employer]uch Delica Plus [id number]) [facility] 04/14/2024 ondansetron (Zofran) 4 MG tablet Take 1 tablet (4 mg) by mouth every 8 (eight) hours if needed for nausea or vomiting. 3 tablet 5 07/18/2024 ondansetron ODT (Zofran-ODT) 4 MG disintegrating tablet Dissolve 2 tablets on the tongue every 8 hours as needed for nausea or vomiting. 20 tablet 5 12/30/2024 LocalMedToExecutive Caddie Verio test strip 1 each by Other route if needed. 04/14/2024 potassium & sodium phosphates (Phos-NaK) 280-160-250 MG packet Take 1 packet by mouth 1 (one) time each day. 30 packet 1 03/16/2024 Vit-Fe Fumarate-FA ( Vitamins) 28-0.8 MG tablet Take 1 tablet by mouth 1 (one) time each day. 30 tablet 11 03/17/2024 senna-docusate (Codi-Colace) 8.6-50 MG tablet Take 1 tablet by mouth 1 (one) time each day. 30 tablet 1 07/18/2024 sodium chloride ([place] Nasal [place]) 0.65 % nasal spray Administer 1 spray [...] Medications Medication Instructions Blood Glucose Monitoring Suppl (LocalMedTouch Verio Reflect) w/Device kit busPIRone (BUSPAR) 5 [...] mg, Oral, Every 6 hours PRN Lancets (LocalMedTouch Delica Plus [id number]) misc methIMAzole (TAPAZOLE) 10 mg, Oral, Daily ondansetron (ZOFRAN) 4 mg, Oral, Every 8 hours PRN ondansetron ODT (ZOFRAN-ODT) 8 mg, Oral, Every 8 hours PRN LocalMedTouch Verio test strip 1 each, As needed potassium & sodium phosphates (Phos-NaK) 280-160-250 MG packet 1 packet, Oral, Daily Vit-Fe Fumarate-FA ( Vitamins) 28-0.8 MG tablet 1 tablet, Oral, Daily propranolol (INDERAL) 20 mg, Oral, 3 times daily senna-docusate (Codi-Colace) 8.6-50 MG tablet 1 tablet, Oral, Daily sodium chloride ([place] Nasal [place]) 0.65 % nasal spray 1 spray, Each [...] min Stress: No Stress Concern Present (02/22/2024) [place] of Occupational Health - Occupational Stress Questionnaire Feeling of Stress : Not at all Social Connections: Moderately Isolated (02/22/2024) Social Connection and Isolation Panel Frequency of Communication with Friends and Family: More than three times a week Frequency of Social Gatherings with Friends and Family: Once a week Attends Jainism Services: Never Active Member of Clubs or [...] EDT Office Visit [facility] [address] [place] [phone] Rachel Khan PA [address] [facility] [address] [place] [phone] 02/16/2025 1:20 PM EDT Office Visit [facility] [place] [address] [facility], [address] [place] [address] Courtney Torres MD [address] [facility] [address] [place] [address] 03/15/2025 3:30 PM EDT Consult [facility] [address], [address] [place] [address] Kendy Sanchez APRN [address] [place] [address] 04/17/2025 2:00 PM EDT Office Visit [facility] [address], [address] [place] [address] Silverio Tam PA [address] [place] [address] documented as of this encounter [...] documented as of this encounter Care Teams Recycling Coordinator Relationship Specialty Start Date End Date Rey Wyatt MD [address] [place] [address] PCP - General 11/16/24 Angela Oleary, RN [facility] Registered Nurse Cardiology 02/17/24 documented as of this encounter
--- OUTSIDE RECORDS SUMMARY | 2025-01-20 10:01 | XMS_ITS | Data Portability ---
Author Organization [facility] & LeonardaMELINA ADMIN Address [address] [place] [address] Care Team Providers Care Director [employer] Name Role Phone MOLLY BOLTON Primary Care Provider [phone] Assessment No assessment recorded. Plan of Treatment Reminders Order Date Submit Date Provider Last Modified By Organization Details Last Modified Time Details Appointments MENTAL [facility] 60 2024 11:00A M FLAVIA KIRBY Not available Not available Not available Lab urinalysi s, dipstick 2023 024 [facility]- Floor 2, 606, [address], [address], [place], [address], 12/14/2023 13:09:11 culture, urine 2023 024 [facility], [address] [place] [address] [place], [address], 12/14/2023 19:07:28 Referral [facility] - Anxiety not respondin g to buspirone . patient. Counselin g and medicatio n managemen t. 2023 024 KEATON Veronica [facility], [address] [place], [address], 04/05/2024 14:52:37 dermatolo gist referral 2023 024 [email or web address] [facility], [address] [place] [address], [address], 10/20/2023 12:02:18 Procedures None recorded. Surgeries None recorded. Imaging None recorded. Medication Orders doxylamin e 10 mg-pyrido xine (vit B6) 10 mg tablet,de layed release 2023 024 [facility], [address] [place] [address] [address], [place], [place], [id number], 12/14/2023 11:36:15 cephalexi n 500 mg tablet 2023 024 [facility], [address] [place] [address] [address], [place], [place], [id number], 02/02/2024 08:44:10 ondansetr on 4 mg disintegr ating tablet 2023 024 [facility], [address] [place] [address] [address], [place], [place], [id number], 12/14/2023 11:38:18 labetalol 100 mg tablet 2023 024 [facility], [address] [place] [address] [address], [place], [place], [id number], 02/02/2024 08:44:37 Patient TargetsNo targets recorded. Patient Instructions Encounter Date Encounter Id Patient Instructions Last Modified By Organization Details Last Modified Time 09/22/2023 [id number] Follow-up for yearly exam 02/2024 and prn [email or web address] Not available 09/22/2023 18:44:56 12/14/2023 [id number] Follow-up prn [email or web address] Not available 12/14/2023 21:37:32 02/02/2024 [id number] Follow-up prn (patient's current symptoms to be managed by cardiology and OB/MFM). 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 patient. Counseling and medication management. Referring Physician: Molly Bolton [facility], Encounter Date: 03/22/2024 Results Created Date Observation Date Name Description Value Unit Range Abnormal Flag Note LastModifiedBy Organization Detail LastModifiedTime 12/02/1912/02/2023 HCG BETA QUANT ITATI VE beta HCG [...] 2 - 3 MONTH S Not Available [facility] ([facility]) [address] [place] [address] [place], [address], 12/02/2023 17:18:42 12/02/19 24 12/02/2023 HCG BETA QUANT ITATI VE note Unles s other juan noted testi ng perfo rmed at: [facility] [address] [place] [address] Micah plascencia MD Not Available [facility] ([facility]) [address] [place] [address] [place], [address], 12/02/2023 17:18:42 12/14/19 24 12/14/2023 CULTU RE URINE W PRESU MP ID results [facility] 12-14 912 No Signi fican t Growt h at 1 Day [facility] 12-15 711 No Signi fican t Growt h at 2 Days Not Available [facility] ([facility]) [address] [place], [address], 12/16/2023 07:13:14 12/14/19 24 12/14/2023 CULTU RE URINE W PRESU MP ID note Unles s other juan noted testi ng perfo rmed at: [facility] [address] [place] [address] Micah plascencia MD Not Available [facility] ([facility]) [address] [place] [address] [place], [address], 12/16/2023 07:13:14 12/14/19 24 12/14/2023 urina lysis , dipst ick Leukocytes (reference range) small Not Available [facility]- Floor 2, [address] [facility] [address] [place] [address], [address], 12/14/2023 11:20:55 12/14/19 24 12/14/2023 urina lysis , dipst ick Nitrite (reference range:) negati ve Not Available [facility]- Floor 2, 606 [address] [facility] [address] [place] [address], [address], 12/14/2023 11:20:55 12/14/19 24 12/14/2023 urina lysis , dipst ick Urobilinogen (reference range) 0.2 Not Available [facility]- Floor 2, [address] [place] [address], [address], 12/14/2023 11:20:55 12/14/19 24 12/14/2023 urina lysis , dipst ick Protein (reference range) 30 Not Available [facility]- Floor 2, 606 [address] [facility] [address] [place] [address], [address], 12/14/2023 11:20:55 12/14/19 24 12/14/2023 urina lysis , dipst ick pH (reference range 5-8.5) 5.5 Not Available [facility]- Floor 2, [address] [facility], [place], [address], 12/14/2023 11:20:55 12/14/19 24 12/14/2023 urina lysis , dipst ick Blood (reference range:) negati ve Not Available [facility]- Floor 2, [address] [facility], [place], [address], 12/14/2023 11:20:55 12/14/19 24 12/14/2023 urina lysis , dipst ick Specific Manila (reference range) 1.030 Not Available [facility]- Floor 2, [address] [facility], [place], [address], 12/14/2023 11:20:55 12/14/19 24 12/14/2023 urina lysis , dipst ick Ketone (reference range) modera te Not Available [facility]- Floor 2, [address] [facility], [place], [address], 12/14/2023 11:20:55 12/14/19 24 12/14/2023 urina lysis , dipst ick Bilirubin (reference range) small Not Available [facility]- Floor 2, [address] [facility], [place], [address], 12/14/2023 11:20:55 12/14/19 24 12/14/2023 urina lysis , dipst ick Glucose (reference range) negati ve Not Available [facility]- Floor 2, [address] [facility], [place], [address], 12/14/2023 11:20:55 12/14/19 24 12/14/2023 urina lysis , dipst ick Color (reference range: yellow-brown ) Brown Not Available [facility]- Floor 2, [address] [place] [address] [place], [address], 12/14/2023 11:20:55 11/20/19 24 11/20/2023 CT, abdom en + pelvi s, w/ contr ast No observ ation record ed. [address] Registration [address] [place], [address], 11/20/2023 22:38:19 01/12/20 24 01/12/2024 XR, chest No observ ation record ed. [address] (Registration ) [address] [place] [address] [place], [address], 01/12/2024 13:53:47 01/12/20 24 01/12/2024 US, obste tric No observ ation record ed. [address] (Registration ) [address] [place] [address] [place], [address], 01/12/2024 17:05:57 01/20/20 24 01/20/2024 elect rocar diogr am No observ ation record ed. [email or web address], [place], [address], 01/21/2024 12:30:49 01/22/20 24 01/22/2024 imagi ng inter preta tion No observ ation record ed. [email or web address] [address], [place], [address], 01/25/2024 11:42:05 01/22/20 24 01/22/2024 imagi ng inter preta tion No observ ation record ed. [email or web address] [address], [place], [address], 01/25/2024 11:41:58 02/06/20 24 02/05/2024 elect rocar diogr am, routi ne ECG, 12 leads min No observ ation record ed. [address], [place], [address], 02/07/2024 14:15:54 04/27/20 24 04/27/2024 rhyth m strip , EKG* No observ ation record ed. [facility] [address], [place], [address], 04/28/2024 15:07:12 07/27/19 25 07/27/2024 imagi ng inter preta tion No observ ation record ed. [email or web address] [facility] [address], [place], [address], 07/28/2024 10:45:22 07/27/19 25 07/27/2024 elect sherryjosh peñamichele lema No observ ation record ed. [email or web address] [facility] [address], [place], [address], 07/28/2024 10:45:06 Result Notes None recorded. Problems Name Problem SNOMED Code Status Onset Date Resolution Date Notes Provider Name and Address Organization Details Recorded Time Gilbert's syndrome 78889633 Active 2022 Not Available [facility] 4 05:51:07 Gallstone 190768897 Active 2022 Not Available [facility] 4 05:51:07 Fracture of hand 20510502 Active 2022 Had two pins placed of the fifth metatar petr. Not Available [facility] 4 05:51:07 Sore throat 822375163 Active 2022 Not Available [facility] 4 05:51:07 Hematochezia 971112285 Active 2022 Not Available [facility] 4 05:51:07 Diarrhea 44204083 Active 2022 Not Available [facility] 4 05:51:07 Nausea 235658044 Active 2022 Not Available [facility] 4 05:51:07 Generalized abdominal pain 683793656 Active 2022 Not Available [facility] 4 05:51:07 Problem Notes None recorded. Procedures Surgical History Date Name Laterality Status Provider Name and Address Organization Details Recorded Time 07/31/19 24 laparoscopic cholecystectomy completed Teresa KRISHNAN - [facility] 08/03/2023 09:25:16 11/09/19 23 Date of Last Pap Smear completed Deb Clark [place] - [facility] 05/28/2023 14:21:22 07/27/19 23 Other completed Shani RKISHNAN - [facility] 08/20/2023 13:45:01 03/03/20 22 EGD/Endoscopy completed Kymberly Gar [place] - [facility] 05/19/2023 08:29:18 07/27/19 02 ENT Surgery completed Shani Nailso [place] - [facility] 08/20/2023 13:45:01 07/27/19 01 ENT Surgery completed Shani Nailso [place] - [facility] [place] [facility] [place] 08/20/2023 13:45:01 Tonsillectomy completed Shani KRISHNAN - [facility] 07/08/2023 12:32:45 Dilation and Curettage completed Deb Clark [place] - [facility] 01/26/2024 09:25:24 Imaging Results None recorded. Procedure Notes None recorded. Medical Equipment None Reported. Allergies Allergen ID Allergen Name Allergen Category Reaction Reaction Severity Criticality Documentation Date Start Date Code Code System Note Provider Name and Address Organization Details Recorded Time 864146 cinnamon preparati on food,medi cation other severe Not available 12/09/2023 27859 5 RxNorm throa t aurelio s Deb [place] null, [place] - [facility] 4 09:50:32 99580 Augmentin medicatio n rash Not available Not available 09/18/2022 64909 2 RxNorm Anmol Pelayo null, [place] - [facility] 3 12:59:17 17062 Product containin g penicilli n (product) medicatio n Not available Not available Not available 09/18/2022 47680 8001 SNOMED Anmol Pelayo null, [place] - [facility] - [place] [facility] [place] 3 12:59:25 Medications Name Sig Start Date [...] Updated DateTime 4 162.56 cm 24.6 kg/m2 77399.1 5 g 98.2 [degF] 99 % 99 % 98 /min 110 mm[Hg] 80 mm[Hg] Francy SUMMERS [facility] 4 15:41:55 Date Recorded Body height Body mass index (BMI) Body weight Body temperature Oxygen saturation Oxygen saturation in Arterial blood by Pulse oximetry Heart rate Systolic blood pressure Diastolic blood pressure Provider Name and Address Organization Details Last Updated DateTime 4 162.56 cm 23.6 kg/m2 50104.8 7 g 98.5 [degF] 97 % 97 % 88 /min 140 mm[Hg] 80 mm[Hg] Francy SUMMERS [facility] 4 10:46:22 Date Recorded Body height Body mass index (BMI) Body weight Body temperature Oxygen saturation Oxygen saturation in Arterial blood by Pulse oximetry Heart rate Systolic blood pressure Diastolic blood pressure Provider Name and Address Organization Details Last Updated DateTime 4 162.56 cm 20.8 kg/m2 25289.6 8 g 98.6 [degF] 99 % 99 % 100 /min 110 mm[Hg] 70 mm[Hg] Francy SUMMERS [facility] 4 08:35:15 Date Recorded Body height Body mass index (BMI) Body weight Body temperature Oxygen saturation Oxygen saturation in Arterial blood by Pulse oximetry Heart rate Systolic blood pressure Diastolic blood pressure Provider Name and Address Organization Details Last Updated DateTime 4 162.56 cm 20.4 kg/m2 09260.4 9 g 98.7 [degF] 100 % 100 % 76 /min 110 mm[Hg] 60 mm[Hg] Francy KRISHNAN MELINA [facility] 4 08:35:40 Date Recorded Body height Body mass index (BMI) Body weight Body temperature Oxygen saturation Oxygen saturation in Arterial blood by Pulse oximetry Heart rate Systolic blood pressure Diastolic blood pressure Provider Name and Address Organization Details Last Updated DateTime 4 162.56 cm 20.8 kg/m2 15327.6 8 g 98.8 [degF] 99 % 99 % 98 /min 100 mm[Hg] 60 mm[Hg] Francy SUMMERS [facility] 09:07:24 Social History Question Answer Notes LastModified by Organizat ion Details LastModified Time Tobacco Smoking Status Former Smoker Francy goodman, [place] SUMMERS [facility] 03/17/2023 09:23:30 Do You Have An Advance Directive? No [email or web address] Information not available 05/28/2023 Are You Blind Or Do You Have Difficulty Seeing? No [email or web address] Information not available 05/28/2023 When Did You Quit Smoking? 1-5yearssinc elastcigaret te Information not available 08/13/2023 Are You Passively Exposed To Smoke? No Information not available 05/28/2023 How Many Years Have You Smoked Tobacco? 12 [email or web address] Information not available 03/17/2023 Sex: Female Functional Status Question Answer Note LastModified by Organizat ion Details LastModified Time Do you use any illicit or recreational drugs? No Information not available 03/17/2023 Do you or have you ever used any other forms of tobacco or nicotine? Yes Information not available 08/13/2023 What is your level of alcohol consumption? None Information not available 03/17/2023 Do you or [...] infarction 62 pt. added direct ly (04/28) [email or web address] Not available 08/20/2023 13:44:57 Brother Family history of Crohn's disease [email or web address] Not available 2023 08:20:21 Brother Autoimmune disease pt. added direct ly (04/28) [email or web address] Not available 04/28/2023 16:28:54 Mother Autoimmune disease pt. added direct ly (04/28) [email or web address] Not available 04/28/2023 16:28:41 Mother Disorder of thyroid gland [email or web address] Not available 2023 13:44:57 Mother Disease of [...] Recorded Time IPV 2 completed Not Available [facility] 08/05/2023 05:51:08 MMR 2 completed Not Available [facility] 08/05/2023 05:51:08 COVID-19 vaccine, vector-nr, rS-Ad26, PF, 0.5 mL 1 completed Not Available [facility] 08/05/2023 05:51:08 Tdap 0 completed Not Available [facility] 08/05/2023 05:51:08 varicella 1 completed Not Available [facility] 08/05/2023 05:51:08 HPV, quadrivalent 1 completed Not Available [facility] 08/05/2023 05:51:08 Hep A, ped/adol, 2 dose 1 completed Not Available [facility] 08/05/2023 05:51:08 Hep A, ped/adol, 2 dose 0 completed Not Available [facility] 08/05/2023 05:51:08 DTaP, unspecified formulation 2 completed Not Available [facility] 08/05/2023 05:51:08 Past Encounters Encounter ID Performer Location Encounter Start Date Encounter Closed Date Diagnosis/Indication Diagnosis SNOMED-CT Code Diagnosis ICD10 Code Diagnosis Note [id number] Marizol Paez MD [facility] [place] [address] [facility] [place] [place] [address] 09/18/2022 12:53:09 09/18/2022 13:34:47 Pain in throat 871033250 R07.0 Strep swab in the office today was negative. Suggest this is a viral issue and will take time to resolve. Nausea 961907860 R11.0 Likely due to her underlying illness. Son also recently diagnosed with a viral illness. She understand s the importance of pushing fluids. Gilbert's syndrome 44962 000 E80.4 Pityriasis versicolor 56 399764 B36.0 Suggested OTC lamisil cream. [id number] BOOKER OLIVARES [facility]- Floor 1, [address],[place] [address] [place] [address] 11/26/2022 12:14:40 11/26/2022 12:41:53 Nail deformity 803317315 L60.8 no obvious sign of fungal infection. Nail loss may be related to initial injury. Continue to monitor at home, follow up with any new or worsening symptoms. [id number] Cassie Jimenez-C [facility]- Floor 1, [address] [facility] [address] [place] [address] 01/21/2023 07:59:03 01/21/2023 08:28:49 Cough 93937409 R05.1 Generalize d aches and pains 14545126 R52 Exposure t o Influenzavirus 885948849 Z20.828 Nausea 486197612 R11.0 Viral syndrome 124633376 B34.9 [id number] [facility] Immediate Care- Floor 1, [address] [facility] [address] [place] [address] 02/10/2023 15:16:39 02/10/2023 15:42:50 Sore throat 036232266 J02.9 We will contact with results of throat culture when available and treat if indicated. Increase fluid intake until better, Tylenol/Mo juan ramon as needed, salt water gargle twice a day. Follow up with any new or worsening symptoms. Discard toothbrush as we discussed. Exposure t o SARS-CoV-2 709663748 Z20.822 Continue with hand hygiene, social distancing and vaccines as recommende d by PCP. Viral syndrome 210046062 B34.9 Possibly HFMD, discussed supportive measures. [id number] Molly Bolton MD [facility] Primary Care- Floor 2, [address] [facility] [address] [place] [address] 03/17/2023 09:03:37 03/17/2023 10:09:55 Irritable bowel syndrome 75490207 K58.9 Continue zofran prn nausea. Referral to GI for futher work-up. Chronic low back pain 27 2463926 M54.50 Continue meloxicam prn [id number] Molly Bolton MD 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 Continue meloxicam and tylenol. Referring to Ortho Spine as precaution . Follow-up in 6 weeks and prn [id number] Indu Decker NP [facility] [address] [place] [address] [address] [place] [address] 05/19/2023 07:54:57 05/19/2023 16:07:23 Hematochezia 993222222 K92.1 6-7 month history hematochez ia, describes large amount at times. Recommend labs today. Recommend colonoscop y to further evaluate r/o colitis, internal hemorrhoid s, other. Pt is scheduled for Colon 06/25 @ 9:00 AM Diarrhea 07563959 R19.7 History of alternatin g constipati on diarrhea. Experienci ng worsening diarrhea over the past 2 weeks. Plan for x-ray abdomen KUB to rule out underlying stool burden. Recommend colonoscop y with random colon biopsies to rule out underlying colitis, other. Plan for labs today. Patient's brother with history of Crohn's. Nausea 232210266 R11.0 Daily episodes of nausea ongoing for several years. EGD reviewed 03/03/[address] Leslie appeared normal, pathology negative for H pylori or celiac. Recommend gallbladde r US to further evaluate. Generalize d abdominal pain 550633539 R10.84 Episodes of upper abdominal pain radiating down throughout her abdomen. Plan for gallbladde r ultrasound as above as well as labs. Recommend colonoscop y to further evaluate. No etiology identified on EGD from 02/2022. [id number] Molly Bolton MD 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 Continue meloxicam (if makes to drowsy can take tylenol or ibuprofen instead, discussed taking NSAIDs with food so as not to upset her stomach). Continue amitriptyl line (discussed that it is ok for her to take 10-20 mg rather than 5 mg). Nausea 929197643 R11.0 Following with GI and has upcoming HIDA scan and colonoscop y scheduled. Continue zofran prn. [id number] Francy Su, DO [place] [facility] - [address], [address] [place] [address] 07/09/2023 13:46:06 07/09/2023 15:31:08 Chronic cholecystitis 45315427 K81.1 I do feel that she is [...] low-fat diet. Irritable bowel syndrome with diarrhea 017095328 K58.0 I do think she has irritable bowel syndrome with diarrhea we did discuss that laparoscop ic cholecyste ctomy will probably not take care of all of those symptoms. She understand s. [id number] Molly Bolton MD 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 Suspect possible pityriasis alba vs. pityriasis versicolor . Will treat for both possibilit ies with combinatio n steroid-an tifungal cream (as planning to have abdominal surgery soon, suggested just treating her back at this time and waiting until wounds heal after surgery to treat her abdomen. Chronic cholecystitis 20 453952 K81.1 Patient scheduled for cholecyste ctomy 07/24/23 Low back p ain co-occurrent with neuralgia of right sciatic nerve 6198400778 71838 M54.41 She is now following with Orthopedic s and will do PT after she has her gallbladde r surgery. [id number] Saskia Soriano APRN [facility] Immediate Care- Floor 1, [address] [facility],[address] [place] [address] 07/24/2023 08:07:21 07/24/2023 08:47:22 Sore throat 816197253 J02.9 Suspect viral etiology. Continue with symptom management , salt water gargles BID. Follow up if no improvemen t in 3-5 days or sooner with worsening symptoms. Cough 34259388 R05.1 Suspect that this is viral. Recommend [...] in 7-10 days, sooner with worsening symptoms. [id number] Francy Su DO [facility] - [address], [address] [place] [id number] 08/13/2023 11:07:19 08/17/2023 14:08:53 Postoperative visit 751917157 Z48.89 Status post laparoscop ic cholecyste ctomy she is doing well. We discussed that if her loose stools continue, I can give her cholestyra mine if needed. She is going to let me know. She should continue lifting restrictio ns for another couple of weeks. She is to let me know if she needs to see me again. [id number] Molly Bolton MD [facility] Primary Care- Floor 2, [address] [facility],[address] [place] [address] 09/22/2023 14:35:17 09/22/2023 16:07:30 Generalized rash 472531389 R21 Suspected pityriasis alba. Have treated with both topical steroids and antifungal s without resolution . Referring to dermatolog y for further evaluation . History of cholecystectomy 515037846 Z90.49 Recovering well from recent cholecyste ctomy for chronic cholecysti tis. Low back p ain co-occurrent with neuralgia of right sciatic nerve [id number] M54.41 Following w/ spine surgeon Dr. Lobato who has ordered back braces and PT. Insomnia [id number] G47.0 0 Ok to use benadryl prn sleep. I have prescribed amitriptyl ine in past for her sciatica and said she might try this prn in place of the benadryl as it might also help with sleep. [id number] oMlly Bolton MD [facility] Primary Care- Floor 2, [address],[facility] [address] [place] [address] 12/14/2023 10:01:42 12/14/2023 12:08:18 Abnormal urinalysis [id number] R82.90 Hospital UA w positive LE and UA today in clinic with small LE. Given symptoms of abdominal cramping and ongoing diarrhea, will treat for possible UTI per below and send for culture Acute urin glenn tract infection [id number] N39.0 Will start treatment with keflex as and follow-up urine culture and adjust antibiotic s prn Palpitations 52056180 R0 0.2 Stop metoprolol and start labetalol. Patient has upcoming cardiology appt. Cardiac testing including troponins and TTE have so far been reassuring . Holter monitor results pending. Nausea and vomiting 1693 1999 R11.2 Start doxylamine -pyridoxin e for likely related nausea. Nausea 144238507 R11.0 Discussed trying doxylamine first for nausea and if breakthrou gh nausea can use zofran prn (class B in , likely safe) test positive 394828140 Z32.01 Patient has follow-up US later this week (elevated HCG but US has yet to confirm IUP) [id number] Molly Bolton MD [facility] Primary Care- Floor 2, [address] [place] [address],[facility] [place] [address] 02/02/2024 08:22:33 02/02/2024 09:24:10 Impaired mobility 84650134 Z74.09 Due to her POTS (becomes lightheade [...] as well. Postural o rthostatic tachycardia syndrome 161916655 G90.A Receiving periodic iv fluid injections ordered by OB and following with cardiology Tachycardia 6524458 R00. 0 Aptos to be 2/2 to dehydratio n and POTS. Currently wearing holter monitor. Following with cardiology . Continue metoprolol . Hyperemesi s gravidarum 62526186 O21.0 Continue zofran. Following with OB Second tri mester 63683143 Z34.92 Following with OB. Anxiety 15798268 F41.9 Continue buspirone and hydroxyzin e prn. [id number] Molly Bolton MD [facility] Primary Care- Floor 2, [address],[place] [address] [place] [address] 03/22/2024 08:25:27 03/23/2024 07:20:01 Anxiety disorder 458699954 F41.9 Continue buspirone. Collected gene sight testing today to help guide medication management (with plan to forward to her provider when establishe s). Referring to for medication management and counseling . Postural o rthostatic tachycardia syndrome 912834567 G90.A Receiving periodic iv fluid infusions ordered by OB and following with cardiology Anemia 609355564 D64.9 Iv iron infusions being considered by her OB Hematochezia 728708559 K 92.1 Following with GI. Scopes being post-poned until after she delivers. [id number] PRATIBHA VERONICA, PMHNCassie Kaufman Therapeut ic Intervent ions at [facility] [address] [place] [address] 05/11/2024 10:46:21 05/18/2024 10:10:[id number] [facility] Primary Care- Floor 2, [address] [facility],[place] [address] [place] [address] 07/12/2024 08:20:01 07/13/2024 07:24:42 Postural orthostatic tachycardia syndrome 105024507 G90.A Continues to have issues with standing, [...] Continues to follow with cardiology . Anxiety 55126988 F41.9 Continues on buspirone. 28015200 Z33.1 Following w/ [facility] /MFM with plan for upcoming induction due to her POTS. [id number] FLAVIA KIRBY Therapeut ic Intervent ions at [address] [place] [address] 06/14/2024 10:38:56 06/14/2024 12:25:13 [id number] FLAVIA KIRBY Therapeut ic Intervent ions at [address] [place] [address] 09/05/2024 08:00:30 09/05/2024 10:08:29 [id number] FLAVIA KIRBY Therapeut ic Intervent ions at [address] [place] [address] 10/04/2024 09:53:14 10/04/2024 11:21:35 [id number] FLAVIA KIRBY Therapeut ic Intervent ions at [address] [place] [address] 11/09/2024 11:15:42 11/15/2024 08:27:33 [id number] FLAVIA KIRBY Therapeut ic Intervent ions at [address] [place] [address] 12/13/2024 09:47:41 12/15/2024 15:09:13 Health Concerns Section Related Observation LastModified by Organization Detai ls LastModified Time None Recorded Concern Status LastModified by Organization Details LastModified Time None Recorded Advance Directives Directive N: Payers Insurance Date Sequence Insurance Name Policy Number Policy Zaidi Covered Member ID Zaidi Member ID Guarantor Name 03/23/2024 1 [id number] [id number] Francy Miller [facility] [id number] Francy Miller [facility] 02/13/2024 [facility] RISK SERVICES Unknown Francy Miller [facility] 01/12/2025 1 [employer] [place] (MEDICAID HMO) Francy Miller [facility] [id number] Francy Miller [facility] 04/17/2023 2 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 Francy Delarosa Notes Date Note Type Note Provider Name and Address Organization Details Recorded Time 4 text/htm l Francydaniel Delarosa is a 22 yo female with [...] score of 0 today Molly Bolton MD [address] [place] [address], [address], [place], [address], [facility] [place] [facility] [place] & [place] 09/22/2023 18:47:04 4 text/htm pj Delarosa is a 23 yo female with depression, IBS-D, Gilbert's syndrome, chronic low back pain with sciatica, cholecystitis s/p recent cholecystectomy who presents for ER follow-ups. I personally reviewed [facility] ER notes from 12/04/23 and 12/10/23 #PalpitationsPatient seen the above dates for palpitations at [facility] seen at [facility] in between these two ER visitsHRs up to 130s at first ER visit with otherwise normal vitalsShe was given 1L fluid bolus and phenergan at first ER visitAt the [facility] visit in between had unremarkable cardiac echo and negative CTA chestAt 2nd [facility] ER visit HRs up to 120s with otherwise normal vitalsWas given 1L fluid bolus, po metoprolol, and iv zofranReferral was made to Cardiology Dr. Virgen and outpatient cardiac monitoringLabs from 12/04/23 notable for CMP with slightly low K of 3.2, negative troponin, BHCG of 1193, negative UDS, unremarkable CBC, bland UALabs from 12/10/23 notable [place] [address], negative troponin, CMP with slightly elevated tbili [...] inSays she will be able to see developer designer in [facility] sooner than she can get into cardiology here Molly Bolton MD [address] [place] [address] Drive, [address], [place], [address], [facility] & [place] 12/14/2023 21:40:31 4 text/htm pj Delarosa is a 23 yo female with anxiety and depression, IBS-D, Gilbert's syndrome, chronic low back pain with sciatica, who present for hospital and ER follow-ups. She is accompanied to clinic by her husbandPatient [facility] and also went to ER 01/31/24 for elevated heart rate and n/v.Labs overall unremarkable (negative troponin, CMP without significant abnormalities, normal CBC 01/24/24 at [facility] and unremarkable CMP, CBC, lactic acid, lipase, and UA 01/31/24 at )Had has 2 OB US at 01/23/24 12 weeks gestation and had bedside US on 01/31/24 showing IUP with FHR of 152Was discharged on zofran, buspirone, hydroxyzine and metoprolol from [facility], felt to be having sinus tachycardia, possible POTs, and panic attacksFelt to have sinus tachycardia and dehydration at ER and given LR and zofran and prescribed pepcid at dischargeUK note mentioned patient currently wearing Holter monitor and hadShe says she continues to have some palpitations and dizziness with standingSays she is bed bound and wheelchair bound (she says that her developer designer made these specifications)Currently off workHaving a lot of nausea as well as diarrheaShe is getting banana bag infusions three times per week (ordered by her OB in [place]) and has been referred to high school admissions representative at [facility] wearing Holter monitorReports HRs up to 170s-180s and sometimes looking like SVT on monitorsOn 25 mg metoprolol dailyShe is following with Dr. [facility] in [place] and has follow-up with them todaySays Holter monitor is to stay on until next weekSays yesterday was first day she went without a spell - no palpitations, no hand or feet numbness or tinglingSays current working diagnosis is POTSTaking buspirone and hydroxyzine prnSays not taking pepcid that was prescribed at [facility] have a cough productive of some yellow [...] OB to fill out Molly Bolton MD [address] [place] [address] Drive, [address], [place], [address], [facility] - [place] & [place] 02/02/2024 12:02:53 4 text/htm pj Delarosa is [...] drink and certain foodsContinues to follow with developer designer who has referred her to immunology (she is hoping to be tested for mcas)Says she has not heard from in [place] that I have referred her to (she [...] some with the POTs Molly Bolton MD [address] [place] [address], [address], [place], [address], [place] - [facility] 03/22/2024 17:52:00 4 text/htm pj Delarosa is [...] with immunology, cardiology, MFM, and GI at [facility] time I saw patient in person [...] on buspirone (says currently being prescribed by [facility] and hopes that I will take over the prescription after she delivers) Molly Bolton MD [address] [place] [address], [address], [place], [address], [facility] & [place] 07/12/2024 12:23:22 OBGyn Episode No OBEpisode recorded.
--- OUTSIDE RECORDS SUMMARY | 2025-01-20 10:02 | XMS_ITS | Encounter Summary ---
Author Organization Healthcare Address [address] [place] [address] Care Team Providers Care Data Integrity Specialist Name Role Phone Molly Louis MD Primary Care Provider [phone] Angela Oleary RN Unavailable Unavailable Rey Wyatt MD Primary Care Provider [phone] Encounter Details Date Type Department Care Team (Late st Contact Info) Description 10/21/2024 Telephone [facility] [place] [address] [place] [address] None, None [address] [place], [place] [id number] Social History Tobacco Use Types Packs/Day Years [...] often do you attend chur ch or mormonism services? Never 02/22/2024 Do you belong to [...] 11/16/2024 [facility] Occupat ional [facility] - Occupational Stress Questionnaire Answer [...] in a long-term (including now)? No 02/09/2024 Venus Depression Scale Answer Date Recorded Venus Depression Scale Total 6 08/08/2024 The thought [...] drink first t casi in the morning (EYE-RETAIL PARTS PROFESSIONAL) to steady your nerves or to get [...] Health Questionnaire-2 Score 0 10/26 3:00 PM Angella Hillman * Question Answer Date of Assessment Author Trouble falling or staying a sleep, or sleeping too much Not at all 11/16/2024 3:00 PM EDAngella Rankin Feeling tired or having kentrell le energy Not at all 11/16/2024 3:00 PM EDAngella Rankin Poor appetite or overeating Not at all 11/16/2024 3: 00 PM EDT Angella Castano Feeling bad about yourself - or that you are a failure or have let yourself or your family down Not at all 11/16/2024 3:00 PM EDAngella Rankin Trouble concentrating on thi ngs, such [...] way Not at all 11/16/2024 3:00 PM Angella Hillman Patient Health Questionnaire-9 Score 0 10/26 3:00 [...] No 11/20/2024 9:44 PM EDT Shani Ruelas, JANELL 2. Non-Specific Active Suici keron Thoughts (Past 1 Month) No 11/20/2024 9:44 PM EDT Giulia Ruelas RN 6. Suicidal Behavior (Lifetime) No 9:44 PM EDT Shani Ruelas RN documented as of this encounter Miscellaneous Notes * Telephone Encounter - Selina Samuels - 10/21/2024 11:28 AM EDT Clinical Concern/Question Reason for Call: Per [facility], patient needs hospital discharge follow up for POTS, tachycardia and chest? Best contact number: Other: [phone] Optimal time of day to reach caller: ANYTIME Additional comments/information from caller: None Note: Please do not reply to this message. Follow-up communication and further actions as a result of this message need to be communicated with the patient directly, if the patient is not active onMyChart. If the patient is active on MyChart, they will receive notification of the communication/outcome via [employer]. documented in this encounter Plan of Treatment Upcoming Encounters Date Type Department Care Team (Late st Contact Info) Description 02/10/2025 10:00 AM EDT Office Visit [facility] Endocrinology [address] [place] [address] Rachel Khan PA [address] [facility] [address] [place] [address] 02/16/2025 1:20 PM EDT Office Visit [facility] [place] [address] [facility], [address] [place] [address] Courtney Torres MD [address] [place] [address] 03/15/2025 3:30 PM EDT Consult [facility] [address], [address] [place] [address] Kendy Sanchez APRN [address] [place] [address] 04/17/2025 2:00 PM EDT Office Visit [facility] Medicine Specialties [address], [address] [place] [address] Silverio Tam PA [address] [place] [address] documented as of this encounter [...] documented as of this encounter Care Teams Data Integrity Specialist Relationship Specialty Start Date End Date Molly Louis MD [address] [place] [address] PCP - General Family Medicine 02/09/24 11/15/24 [place] [address] [place] [address] [address] [place], [place] [id number] PCP - General 11/16/24 Angela Oleary, RN [facility] Registered Nurse Cardiology 02/17/24 documented as of this encounter
--- OUTSIDE RECORDS SUMMARY | 2025-01-20 10:02 | XMS_ITS | Encounter Summary ---
Author Organization Healthcare Address [address] [place] [address] Care Team Providers Care Senior Scientist Name Role Phone Angela Oleary RN Unavailable Unavailable Rey Wyatt MD Primary Care Provider [phone] Encounter Details Date Type Department Care Team [...] you attend [facility] or jew services? Never 02/22/2024 Do you belong to any clubs o r organizations such as confucianism groups, unions, fraternal or athletic groups, or [...] Patient Health Questionnaire-2 Score 0 11/16/2024 [facility]at ional Health - [...] in a half-way (including now)? No 02/09/2024 [place] Depression Scale Answer Date Recorded [place] Depression Scale Total 6 08/08/2024 The thought [...] drink first t casi in the morning (EYE-OPTIMIZATION ANALYST) to steady your nerves or to get [...] EDT Office Visit [facility] [address] [place] [address] Rachel Khan PA [address] [place] [address] 02/16/2025 1:20 PM EDT Office Visit [facility] [place] [address] [facility], [address] [place] [address] Courtney Torres MD [address] [place] [address] 03/15/2025 3:30 PM EDT Consult [facility] [address] [place] [address] Kendy Sanchez APRN [address] [place] [address] 04/17/2025 2:00 PM EDT Office Visit [facility] Medicine Specialties [address], [address] [place] [address] Silverio Tam PA [address] [place] [address] documented as of this encounter [...] documented as of this encounter Care Teams Senior Scientist Relationship Specialty Start Date End Date Rey Wyatt MD [address] [place] [address] PCP - General 11/16/24 Angela Oleary, RN [facility] Registered Nurse Cardiology 02/17/24 documented as of this encounter
--- OUTSIDE RECORDS SUMMARY | 2025-01-20 10:02 | XMS_ITS | Encounter Summary ---
Author Organization Healthcare Address [address] [place] [address] Care Team Providers Care Commissioned Defence Force Officer Name Role Phone Molly Louis MD Primary Care Provider [phone] Angela Oleary RN Unavailable Unavailable Rey Wyatt MD Primary Care Provider [phone] Encounter Details Date Type Department Care Team (Late st Contact Info) Description 10/21/2024 Telephone [facility] [address] [place] [address] Roland Wooten MD [address] [facility] [address] [place] [address] Social History Tobacco Use Types [...] How often do you attend chur or baptism services? Never 02/22/2024 Do you [...] in a detention (including now)? No 02/09/2024 [place] Depression Scale [...] drink first t casi in the morning (EYE-PORTER SAMPLE CASE) to steady your nerves or to get [...] Not at all 11/16/2024 3:00 PM EDGi Rnakin Trouble concentrating on thi ngs, such as [...] patient, has still not been discharged from [facility], advised that Dr Wooten could call this afternoon and requested recent lab results be faxed to [phone]. * Telephone Encounter - Cindy Mckeon - 10/21/2024 9:19 AM EDT Patient Phone Message Reason for Call: Pt called back to say she is being discharged from the hospital today. She asks for a call back aiden. Best contact number and optimal time of day to reach caller: [phone] Note: Please do not reply to this [...] Dr Wooten. Pls advise. Best contact number: [phone] (mobile) Optimal time of day to reach [...] Description 02/10/2025 10:00 AM EDT Office Visit [facility] Endocrinology [address] [place] [address] Rachel Khan PA [address] [facility] [address] [place] [address] 02/16/2025 1:20 PM EDT Office Visit [facility] [place] [address] [facility], [address] [place] [address] Courtney Torres MD [address] [facility] [address] [place] [address] 03/15/2025 3:30 PM EDT Consult [facility] [address], [address] [place] [address] Kendy Sanchez APRN [address] [place] [address] 04/17/2025 2:00 PM EDT Office Visit [facility] Medicine Specialties [address], [address] [place] [address] Silverio Tam, BOOKER [address] [place] [address] documented as of this encounter [...] documented as of this encounter Care Teams Commissioned Defence Force Officer Relationship Specialty Start Date End Date Molly Louis MD [address] [id number] PCP - General Family Medicine 02/09/24 11/15/24 Rey Wyatt MD [address] [facility] [address] [place] [address] PCP - General 11/16/24 Angela Oleary, RN [facility] Registered Nurse Cardiology 02/17/24 documented as of this encounter
--- OUTSIDE RECORDS SUMMARY | 2025-01-20 10:02 | XMS_ITS | Encounter Summary ---
Author Organization Healthcare Address [address] [place] [address] Care Team Providers Care Cap Sizer Name Role Phone Angela Oleary RN Unavailable Unavailable Rey Wyatt MD Primary Care Provider [phone] Encounter Details Date Type Department Care Team [...] week 02/22/2024 How often do you attend [facility] or anabaptist services? Never 02/22/2024 Do you [...] Recorded Patient Health Questionnaire-2 Score 0 11/16/2024 [facility] - Occupational [...] a senior living (including now)? No 02/09/2024 [place] Depression Scale Answer Date Recorded [place] Depression Scale Total 6 08/08/2024 The thought [...] first t casi in the morning (EYE-HAND ALTERATIONS TAILOR) to steady your nerves or to get [...] Visit [facility] [address] [place] [address] Rachel Khan PA [address] [place] [address] 02/16/2025 1:20 PM EDT Office Visit [facility] [place] [address] [facility], [address] [place] [address] Courtney Torres MD [address] [place] [address] 03/15/2025 3:30 PM EDT Consult [facility] [address], [address] [place] [address] Kendy Sanchez APRN [address] [place] [address] 04/17/2025 2:00 PM EDT Office Visit [facility] Medicine Specialties [address], [address] [place] [address] Silverio Tam PA [address] [place] [address] documented as of this encounter [...] documented as of this encounter Care Teams Cap Sizer Relationship Specialty Start Date End Date Rey Wyatt MD [address] [place] [address] PCP - General 11/16/24 Angela Oleary, RN [facility] Registered Nurse Cardiology 02/17/24 documented as of this encounter
--- OUTSIDE RECORDS SUMMARY | 2025-01-20 10:02 | XMS_ITS | Encounter Summary ---
Author Organization Healthcare Address [address] [place] [address] Care Team Providers Care Civil Engineering Technician Name Role Phone Angela Oleary RN Unavailable Unavailable Rey Wyatt MD Primary Care Provider [phone] Encounter Details Date Type Department Care Team (Late st Contact Info) Description 12/09/2024 Orders Only [facility] Medicine Specialties [address] [place] [address] Silverio Tam PA [address] [place] [address] Social History Tobacco Use Types [...] often do you attend chur ch or baptist services? Never 02/22/2024 Do you belong to [...] Score 0 11/16/2024 [facility] - Occupational Stress Questionnaire Answer Date [...] in a halfway (including now)? No 02/09/2024 [place] Depression Scale Answer Date Recorded [place] Depression Scale Total 6 08/08/2024 The thought [...] drink first t casi in the morning (EYE-DAIRY HAND) to steady your nerves or to get rid of a hangover? 0 07/16/2024 CAGE Questionnaire Score 0 024 Utilities Answer Date Recorded In the past 12 months has th e ERN, gas, oil, or water company threatened to [...] EDT Office Visit [facility] [address] [place] [address] Rachel Khan PA [address] [place] [address] 02/16/2025 1:20 PM EDT Office Visit [facility] [place] [address] [place] [address] Courtney Torres MD [address] [place] [address] 03/15/2025 3:30 PM EDT Consult [facility] [address], 1[address] [place] [address] Kendy Sanchez APRN [address] [place] [address] 04/17/2025 2:00 PM EDT Office Visit [facility] Medicine Specialties [address], [address] [place] [address] Silverio Tam PA [address] [place] [address] documented as of this encounter [...] documented as of this encounter Care Teams Civil Engineering Technician Relationship Specialty Start Date End Date Rey Wyatt MD [address] [facility] [address] [place] [address] PCP - General 11/16/24 Angela Oleary, RN [facility] Registered Nurse Cardiology 02/17/24 documented as of this encounter
--- OUTSIDE RECORDS SUMMARY | 2025-01-20 10:02 | XMS_ITS | Data Portability ---
Author Organization [facility] [place] [employer] [place] [facility] [place] Address [address] [place] [address] Assessment Encounter Date Assessment Date Assessment LastModified by Organization Details LastModified Time 12/18/2023 12/18/2023 Patient is ___weeks . Discussed plan. [email or web address] Not available 12/17/2023 10:25:59 Plan of Treatment Reminders Order Date Submit Date Provider Last Modified By Organization Details Last Modified Time Details Appointments None recorded. Lab urinalysis , dipstick [address], [address] [place] [address], [id number], 4 17:15:18 unlisted lab - qnatal(R) advanced 2023 024 [facility], [address], [place], [address], 4 01:26:17 rapid strep group A, throat 2023 024 [email or web address] [facility], [address] [place] [address], [place], [address], 4 13:42:01 urinalysis , dipstick 2023 024 [facility], [address] [place], [address], 4 10:47:53 Referral None recorded. Procedures None recorded. Surgeries None recorded. Imaging None recorded. Medication Orders cefdinir 300 mg capsule 2023 024 [email or web address] [facility], [address] [place] [address] [address], [place], [place], [id number], 4 16:54:44 Patient TargetsNo targets recorded. Patient Instructions Encounter Date Encounter Id Patient Instructions Last Modified By Organization Details Last Modified Time 01/06/2024 [id number] Increase fluid intake, take tylenol and motrin for pain/fever as needed, advised to take medication as prescribed to eradicate bacterial infection and reduce chances of antibiotic resistance. Change toothbrush in 24 hours. May return to school 24 hours after antibiotic therapy. Follow up with PCP or OB for symptoms not improving. Go to ER with any concerning symptoms. [email or web address] Not available 01/06/2024 14:35:51 Reason for Referral None Reported. Results Created Date Observation Date Name Description Value Unit Range Abnormal Flag Note LastModifiedBy Organization Detail LastModifiedTime 12/09/19 24 12/10/2023 HEPAT IC FUNCT ION PANEL protein, total 7.7 g/dL 6.1-8. 1 normal Not Available [facility] [place] [facility] [address] [facility] [place], [address], 12/10/2023 11:16:57 12/09/19 24 12/10/2023 HEPAT IC FUNCT ION PANEL albumin 4.7 g/dL 3.6-5. 1 normal Not Available [facility] [address], [place], [address], 12/10/2023 11:16:57 12/09/19 24 12/10/2023 HEPAT IC FUNCT ION PANEL globulin 3.0 g/dL_ (calc ) 1.9-3. 7 normal Not Available [facility] [employer] [facility] [place] [facility] [address] [facility], [place], [address], 12/10/2023 11:16:57 12/09/19 24 12/10/2023 HEPAT IC FUNCT ION PANEL albumin/glob ulin ratio 1.6 (calc ) 1.0-2. 5 normal Not Available [employer] [facility] [address] [place], [address], 12/10/2023 11:16:57 12/09/19 24 12/10/2023 HEPAT IC FUNCT ION PANEL bilirubin, total 2.6 mg/dL 0.2-1. 2 high Not Available [employer] [facility] [address] [place], [address], 12/10/2023 11:16:57 12/09/19 24 12/10/2023 HEPAT IC FUNCT ION PANEL bilirubin, direct 0.4 mg/dL < or = 0.2 high Not Available [employer] [facility] [address] [place] [address], [address], 12/10/2023 11:16:57 12/09/19 24 12/10/2023 HEPAT IC FUNCT ION PANEL bilirubin, indirect 2.2 mg/dL _(farhan c) 0.2-1. 2 high Not Available [employer] [facility] [address] [place], [address], 12/10/2023 11:16:57 12/09/19 24 12/10/2023 HEPAT IC FUNCT ION PANEL alkaline phosphatase 37 U/L 31-125 normal Not Available [employer] [facility] [address] [facility] [place], [address], 12/10/2023 11:16:57 12/09/19 24 12/10/2023 HEPAT IC FUNCT ION PANEL AST 14 U/L 10-30 normal Not Available [employer] [facility] [address] [place], [address], 12/10/2023 11:16:57 12/09/19 24 12/10/2023 HEPAT IC FUNCT ION PANEL ALT 12 U/L 6-29 normal Not Available [facility] [place] [facility] [address] [facility] [place], [address], 12/10/2023 11:16:57 12/09/19 24 12/10/2023 HCG, TOTAL , [place] [address] mIU/m L high Refer ence Range Nonpr [...] appro goldie by the FDA or the [facility] actur er of the assay . Not Available [facility] [place] [facility] [address] [facility], [place], [address], 12/10/2023 11:16:58 12/09/19 24 12/09/2023 urina lysis , dipst ick Leukocytes Modera te Not Available [address], [address], 12/09/2023 08:11:20 12/09/19 24 12/09/2023 urina lysis , dipst ick Nitrite negati ve Not Available [address], [address], 12/09/2023 08:11:20 12/09/19 24 12/09/2023 urina lysis , dipst ick Urobilinogen .2 Not Available [address], [address], 12/09/2023 08:11:20 12/09/19 24 12/09/2023 urina lysis , dipst ick Protein Negati ve Not Available [address], [address], 12/09/2023 08:11:20 12/09/19 24 12/09/2023 urina lysis , dipst ick pH 5.5 Not Available [address], [address], 12/09/2023 08:11:20 12/09/19 24 12/09/2023 urina lysis , dipst ick Blood Negati ve Not Available [address], [address], 12/09/2023 08:11:20 12/09/1912/09/2023 urina lysis , dipst ick Specific [place] 1.025 Not Available [address], [address], 12/09/2023 08:11:20 12/09/19 24 12/09/2023 urina lysis , dipst ick Ketone Small Not Available [address], [address], 12/09/2023 08:11:20 12/09/19 24 12/09/2023 urina lysis , dipst ick Bilirubin Negati ve Not Available [address], [address], 12/09/2023 08:11:20 12/09/19 24 12/09/2023 urina lysis , dipst ick Glucose Negati ve Not Available [address], [address], 12/09/2023 08:11:20 12/09/19 24 12/09/2023 urina lysis , dipst ick Appearance Clear Not Available [address], [address], 12/09/2023 08:11:20 12/09/19 24 12/09/2023 urina lysis , dipst ick Color Dark Yellow Not Available [facility] [address] [facility], [place], [address], 12/09/2023 08:11:20 12/09/19 24 12/09/2023 pregn suzanne test, urine HCG positi ve Not Available [facility] [address] [facility], [place], [address], 12/09/2023 08:11:34 12/18/19 24 12/22/2023 OBSTE TRIC PANEL W/FOU RTH GENER ATION HIV AND HEPAT ITIS C AB W/REF L white blood cell count 6.2 thous and/u L 3.8-10 .8 normal Not Available [facility] [place] [facility] [address] [place], [address], 12/22/2023 10:53:19 12/18/19 24 12/22/2023 OBSTE TRIC PANEL W/FOU RTH GENER ATION HIV AND HEPAT ITIS C AB W/REF L red blood cell count 4.24 iron on/uL 3.80-5 .10 normal Not Available [facility] [place] [facility] [address] [facility], [place], [address], 12/22/2023 10:53:19 12/18/19 24 12/22/2023 OBSTE TRIC PANEL W/FOU RTH GENER ATION HIV AND HEPAT ITIS C AB W/REF L hemoglobin 12.7 g/dL 11.7-1 5.5 normal Not Available [facility] [place] [facility] [address] [facility] [facility], [place], [address], 12/22/2023 10:53:19 12/18/19 24 12/22/2023 OBSTE TRIC PANEL W/FOU RTH GENER ATION HIV AND HEPAT ITIS C AB W/REF L hematocrit 38.7 % 35.0-4 5.0 normal Not Available [facility] [place] [facility] [address] [facility] [place], [address], 12/22/2023 10:53:19 12/18/19 24 12/22/2023 OBSTE TRIC PANEL W/FOU RTH GENER ATION HIV AND HEPAT ITIS C AB W/REF L MCV 91.3 fL 80.0-1 00.0 normal Not Available [facility] [place] [facility] [address] [facility], [place], [address], 12/22/2023 10:53:19 12/18/19 24 12/22/2023 OBSTE TRIC PANEL W/FOU RTH GENER ATION HIV AND HEPAT ITIS C AB W/REF L MCH 30.0 pg 27.0-3 3.0 normal Not Available [facility] [place] [facility] [address] [place], [address], 12/22/2023 10:53:19 12/18/19 24 12/22/2023 OBSTE TRIC PANEL W/FOU RTH GENER ATION HIV AND HEPAT ITIS C AB W/REF L MCHC 32.8 g/dL 32.0-3 6.0 normal Not Available [facility] [place] [facility] [address] [place], [address], 12/22/2023 10:53:19 12/18/19 24 12/22/2023 OBSTE TRIC PANEL W/FOU RTH GENER ATION HIV AND HEPAT ITIS C AB W/REF L RDW 12.0 % 11.0-1 5.0 normal Not Available [facility] [place] [facility] [address] [place], [address], 12/22/2023 10:53:19 12/18/19 24 12/22/2023 OBSTE TRIC PANEL W/FOU RTH GENER ATION HIV AND HEPAT ITIS C AB W/REF L platelet count 143 thous and/u L 140-40 0 normal Not Available [facility] [place] [facility] [address], [place], [address], 12/22/2023 10:53:19 12/18/19 24 12/22/2023 OBSTE TRIC PANEL W/FOU RTH GENER ATION HIV AND HEPAT ITIS C AB W/REF L MPV 11.8 fL 7.5-12 .5 normal Not Available [facility] [place] [facility] [address], [place], [address], 12/22/2023 10:53:19 12/18/19 24 12/22/2023 OBSTE TRIC PANEL W/FOU RTH GENER ATION HIV AND HEPAT ITIS C AB W/REF L absolute neutrophils 5233 cells /uL 1500-7 800 normal Not Available [facility] [place] [facility] [address], [place], [address], 12/22/2023 10:53:19 12/18/19 24 12/22/2023 OBSTE TRIC PANEL W/FOU RTH GENER ATION HIV AND HEPAT ITIS C AB W/REF L absolute lymphocytes 651 cells /uL 850-39 00 low Not Available [facility] [place] [facility] [address], [place], [address], 12/22/2023 10:53:19 12/18/19 24 12/22/2023 OBSTE TRIC PANEL W/FOU RTH GENER ATION HIV AND HEPAT ITIS C AB W/REF L absolute monocytes 273 cells /uL 200-95 0 normal Not Available [facility] [place] [facility] [address], [place], [address], 12/22/2023 10:53:19 12/18/19 24 12/22/2023 OBSTE TRIC PANEL W/FOU RTH GENER ATION HIV AND HEPAT ITIS C AB W/REF L absolute eosinophils 12 cells /uL 15-500 low Not Available [facility] [place] [facility] [address], [place], [address], 12/22/2023 10:53:19 12/18/19 24 12/22/2023 OBSTE TRIC PANEL W/FOU RTH GENER ATION HIV AND HEPAT ITIS C AB W/REF L absolute basophils 31 cells /uL 0-200 normal Not Available [facility] [place] [facility] [address], [place], [address], 12/22/2023 10:53:19 12/18/19 24 12/22/2023 OBSTE TRIC PANEL W/FOU RTH GENER ATION HIV AND HEPAT ITIS C AB W/REF L neutrophils 84.4 % normal Not Available [facility] [place] [facility] [address], [place], [address], 12/22/2023 10:53:19 12/18/19 24 12/22/2023 OBSTE TRIC PANEL W/FOU RTH GENER ATION HIV AND HEPAT ITIS C AB W/REF L lymphocytes 10.5 % normal Not Available [facility] [place] [facility] [address], [place], [address], 12/22/2023 10:53:19 12/18/19 24 12/22/2023 OBSTE TRIC PANEL W/FOU RTH GENER ATION HIV AND HEPAT ITIS C AB W/REF L monocytes 4.4 % normal Not Available [facility] [place] [facility] [address], [place], [address], 12/22/2023 10:53:19 12/18/19 24 12/22/2023 OBSTE TRIC PANEL W/FOU RTH GENER ATION HIV AND HEPAT ITIS C AB W/REF L eosinophils 0.2 % normal Not Available [facility] [place] [facility] [address], [place], [address], 12/22/2023 10:53:19 12/18/19 24 12/22/2023 OBSTE TRIC PANEL W/FOU RTH GENER ATION HIV AND HEPAT ITIS C AB W/REF L basophils 0.5 % normal Not Available [facility] [place] [facility] [address] [facility], [place], [address], 12/22/2023 10:53:19 12/18/19 24 12/22/2023 OBSTE TRIC [...] pregn suzanne. Not Available [facility] [place] [facility] [address] [facility], [place], [address], 12/22/2023 10:53:19 12/18/19 24 12/22/2023 OBSTE TRIC PANEL W/FOU RTH GENER ATION HIV AND HEPAT ITIS C AB W/REF L ABO group O Not Available [facility] [place] [facility] [address] [facility], [place], [address], 12/22/2023 10:53:19 12/18/19 24 12/22/2023 OBSTE TRIC PANEL W/FOU RTH GENER ATION HIV AND HEPAT ITIS C AB W/REF L Rh type RH(D) POSITI VE For addit ional infor cliff up e refer to http: //[facility] emily shah.Que stDia gnost ics.c om/fa q/FAQ 111 (This link is being provi ded for infor martell shen/ educa domi l purpo ses only. ) Not Available [facility] [place] [facility] [address] [facility] [facility], [place], [address], 12/22/2023 10:53:19 12/18/19 24 12/22/2023 OBSTE TRIC PANEL W/FOU RTH GENER ATION HIV AND HEPAT ITIS C AB W/REF L RPR (DX) w/refl titer and confirmatory testing NON-RE ACTIVE non-re active normal No labor atory evide nce of syphi lis. If recen t expos ure is suspe cted, submi t a new sampl e in 2-4 weeks . Not Available [facility] [place] [facility] [address] [facility], [place], [address], 12/22/2023 10:53:19 12/18/19 24 12/22/2023 OBSTE TRIC PANEL W/FOU RTH GENER ATION HIV AND HEPAT ITIS C AB W/REF L hepatitis B surface antigen NON-RE ACTIVE non-re active normal For addit ional infor cliff up e refer to http: //amaury shah.que stdia gnost ics.c om/fa q/FAQ (This link is being provi ded for infor martell shen/ educa domi l purpo ses only. ) Not Available [facility] [place] [facility] [address] [facility], [place], [address], 12/22/2023 10:53:19 12/18/19 24 12/22/2023 OBSTE TRIC [...] virus . Not Available [facility] [place] [facility] [address] [facility], [place], [address], 12/22/2023 10:53:19 12/18/19 24 12/22/2023 OBSTE TRIC [...] matio n pleas e refer to http: //[facility] emily shah.bill stdia gnost ics.c om/fa q/FAQ 106 (This link is being provi ded for infor matio nal/ educa domi l purpo ses only. ) The perfo rmanc e of this assay has not been clini leobardo valid ated in patie nts less than 2 years old. Not Available [facility] [place] [facility] [address] [facility], [place], [address], 12/22/2023 10:53:19 12/18/19 24 12/22/2023 OBSTE TRIC [...] a test for HCV RNA (test code 65029 ) is sugge sted. For addit ional infor matio n pleas e refer to http: //[facility]ong stdia gnost ics.c om/fa q/FAQ 22v1 (This link is being provi ded for infor martell shen/ yang oliva purpo ses only. ) Not Available [facility] [place] [facility] [address] [place], [address], 12/22/2023 10:53:19 01/06/20 24 01/06/2024 rapid strep group A, throa t Strep negati ve Not Available [facility] - [address], [place], [address], 01/06/2024 13:13:50 01/15/20 24 01/26/2024 QNATA L(R) ADVAN GREGORIO number of fetuses? 1 Not Available [facility] [place] [facility] [address], [place], [address], 01/26/2024 01:26:17 01/15/20 24 01/26/2024 QNATA L(R) ADVAN GREGORIO advanced maternal age? NOT GIVEN Not Available [facility] [place] [facility] [address] [place], [address], 01/26/2024 01:26:17 01/15/20 24 01/26/2024 QNATA L(R) ADVAN GREGORIO abnormal meliton? NOT GIVEN Not Available [facility] [place] [facility] [address] [place], [address], 01/26/2024 01:26:17 01/15/20 24 01/26/2024 QNATA L(R) ADVAN GREGORIO abnormal US? NOT GIVEN Not Available [facility] [place] [facility] [address] [place], [address], 01/26/2024 01:26:17 01/15/20 24 01/26/2024 QNATA L(R) ADVAN GREGORIO personal/fam history? NOT GIVEN Not Available [facility] [place] [facility] [address] [place], [address], 01/26/2024 01:26:17 01/15/20 24 01/26/2024 QNATA L(R) ADVAN GREGORIO interpretati on SEE NOTE This speci men showe d an expec sathish repre senta tion of chrom osome 21, 18, and 13 mater ial. See Elias rivera below . 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) Negati ve Not Available [facility] [place] [facility] [address] [facility], [place], [address], 01/26/2024 01:26:17 01/15/20 24 01/26/2024 QNATA L(R) ADVAN GREGORIO trisomy 13 (T13) Negati ve Not Available [facility] [place] [facility] [address] [facility], [place], [address], 01/26/2024 01:26:17 01/15/20 24 01/26/2024 QNATA L(R) ADVAN GREGORIO Y chromosome Not detect ed Not Available [facility] [place] [facility] [address] [facility], [place], [address], 01/26/2024 01:26:17 01/15/20 24 01/26/2024 QNATA L(R) ADVAN GREGORIO Y chr. interpretati on SEE NOTE Consi stent with a femal e fetus . Not Available [facility] [place] [facility] [address] [facility], [place], [address], 01/26/2024 01:26:17 01/15/20 24 01/26/2024 QNATA L(R) ADVAN GREGORIO sex chromosome No aneupl oidy Not Available [facility] [place] [facility] [address] [facility] [place], [address], 01/26/2024 01:26:17 01/15/20 24 01/26/2024 QNATA L(R) ADVAN GREGORIO sex chromosome interp SEE NOTE No appar ent abnor malit y was detec sathish. See Limi tatio ns below . Not Available [facility] [place] [facility] [address] [facility] [place], [address], 01/26/2024 01:26:17 01/15/20 24 01/26/2024 QNATA L(R) ADVAN GREGORIO microdeletio n Not detect ed Not Available [facility] [place] [facility] [address] [facility] [place], [address], 01/26/2024 01:26:17 01/15/20 24 01/26/2024 QNATA L(R) ADVAN GREGORIO microdeletio n interp SEE NOTE No appar ent abnor malit y was detec sathish. See Limi tatio ns below . Not Available [facility] [address] [facility] [place], [address], 01/26/2024 01:26:17 01/15/20 24 01/26/2024 QNATA L(R) ADVAN GREGORIO gestational age(in weeks) 10 Not Available [facility] [place] [facility] [address] [facility] [place], [address], 01/26/2024 01:26:17 01/15/20 24 01/26/2024 QNATA L(R) ADVAN GREGORIO gestational age (in days) 3 Not Available [facility] [place] [facility] [address] [facility] [place], [address], 01/26/2024 01:26:17 01/15/20 24 01/26/2024 QNATA L(R) ADVAN GREGORIO fraction 9.49% Not Available [facility] [place] [facility] [address] [place], [address], 01/26/2024 01:26:17 01/15/20 24 01/26/2024 QNATA L(R) ADVAN GREGORIO laboratory comments SEE NOTE A porti on of the testi ng was perfo rmed at [facility] . Labor atory resul ts and submi tted clini farhan infor matio n revie wed by Tomi Lozano, Ph.D. , [facility]. Not Available [facility] [place] [facility] [address] [place], [address], 01/26/2024 01:26:17 01/15/20 24 01/26/2024 QNATA L(R) [...] scree [place] resul ts may be affec stahish by the prese nce of chrom osome abnor malit ies or micro delet ions that are mater nal or confi clifford place ntal in origi n. Not Available [facility] [place] [facility] [address] [facility], [place], [address], 01/26/2024 01:26:17 01/15/20 24 01/26/2024 QNATA L(R) [...] sment . Not Available [facility] [place] [facility] [address] [facility], [place], [address], 01/26/2024 01:26:17 01/15/2001/26/2024 QNATA L(R) ADVAN GREGORIO methodology SEE NOTE [...] senta tion of seque nces from the [facility] ns invol goldie in 1p36 micro delet ion syndr ome (1p36 ), Hiram Hart hhorn syndr ome (4p), Juan Manuel u-celina t syndr ome (5p), Claudette Arriaza syl syndr ome (8q), Humberto sen syndr ome (11q) , Prade r Willi syndr ome/A ngelm an syndr [...] by FDA. Not Available [facility] [place] [facility] [address] [facility], [place], [address], 01/26/2024 01:26:17 01/15/20 24 01/26/2024 CHLAM YDIA/ N.RO ORRHO EAE AND T. VAGIN ADILSON RNA, QL TMA chlamydia trachomatis RNA, tma, urogenital NOT DETECT ED not detect ed normal Not Available [facility] [place] [facility] [address] [facility], [place], [address], 01/26/2024 01:26:18 01/15/20 24 01/26/2024 CHLAM YDIA/ N.RO ORRHO EAE AND T. VAGIN ADILSON RNA, QL TMA neisseria gonorrhoeae RNA, tma, urogenital NOT DETECT ED not detect ed normal Not Available [facility] [place] [facility] [address] [facility], [place], [address], 01/26/2024 01:26:18 01/15/20 24 01/26/2024 CHLAM YDIA/ [...] clini farhan purpo ses. For addit ional infor cliff up e refer to https ://ed ucati on.qu estdi HubHuman tics. com/f aq/FA Q154 (This link is being provi ded for infor martell shah/ educa domi l purpo ses only. ) Not Available [facility] [place] [facility] [address] [facility], [place], [address], 01/26/2024 01:26:18 01/15/20 24 01/26/2024 CHLAM YDIA/ N.RO ORRHO EAE AND T. VAGIN ADILSON RNA, QL TMA trichomonas vaginalis RNA, ql tma NOT DETECT ED not detect ed normal For addit ional infor cliff up refer to http: //[facility] emily shah.que stdia gnost ics.c om/ faq/T katie reynolds tma (This link is being provi ded for infor martell shen/ educa domi l purpo ses only. ) Not Available [facility] [place] [facility] [address] [facility], [place], [address], 01/26/2024 01:26:18 01/15/20 24 01/26/2024 DRUG MONIT ORING , PANEL 8 WITH CONFI RMATI ON, URINE alcohol metabolites NEGATI VE NG/mL <500 normal Not Available [facility] [place] [facility] [address] [place], [address], 01/26/2024 01:26:18 01/15/20 24 01/26/2024 DRUG MONIT ORING , PANEL 8 WITH CONFI RMATI ON, URINE amphetamines NEGATI VE NG/mL <500 normal Not Available [facility] [place] [facility] [address] [facility], [place], [address], 01/26/2024 01:26:18 01/15/20 24 01/26/2024 DRUG MONIT ORING , PANEL 8 WITH CONFI RMATI ON, URINE benzodiazepi bony NEGATI VE NG/mL <100 normal Not Available [facility] [place] [facility] [address] [facility], [place], [address], 01/26/2024 01:26:18 01/15/20 24 01/26/2024 DRUG MONIT ORING , PANEL 8 WITH CONFI RMATI ON, URINE buprenorphin e NEGATI VE NG/mL <5 normal Not Available [facility] [place] [facility] [address] [place], [address], 01/26/2024 01:26:18 01/15/20 24 01/26/2024 DRUG MONIT ORING , PANEL 8 WITH CONFI RMATI ON, URINE cocaine metabolite NEGATI VE NG/mL <150 normal Not Available [facility] [place] [facility] [address] [place], [address], 01/26/2024 01:26:18 01/15/20 24 01/26/2024 DRUG MONIT ORING , PANEL 8 WITH CONFI RMATI ON, URINE 6 acetylmorphi ne NEGATI VE NG/mL <10 normal Not Available [facility] [address] [place], [address], 01/26/2024 01:26:18 01/15/20 24 01/26/2024 DRUG MONIT ORING , PANEL 8 WITH CONFI RMATI ON, URINE marijuana metabolite NEGATI VE NG/mL <20 normal Not Available [facility] [email or web address] [address] [place], [address], 01/26/2024 01:26:18 01/15/20 24 01/26/2024 DRUG MONIT ORING , PANEL 8 WITH CONFI RMATI ON, URINE MDMA NEGATI VE NG/mL <500 normal Not Available [facility] [address] [facility] [place], [address], 01/26/2024 01:26:18 01/15/20 24 01/26/2024 DRUG MONIT ORING , PANEL 8 WITH CONFI RMATI ON, URINE opiates NEGATI VE NG/mL <100 normal Not Available [facility] [address] [facility] [place], [address], 01/26/2024 01:26:18 01/15/20 24 01/26/2024 DRUG MONIT ORING , PANEL 8 WITH CONFI RMATI ON, URINE oxycodone NEGATI VE NG/mL <100 normal Not Available [facility] [address] [place], [address], 01/26/2024 01:26:18 01/15/20 24 01/26/2024 DRUG MONIT ORING , PANEL 8 WITH CONFI RMATI ON, URINE creatinine 89.6 mg/dL > or = 20.0 normal Not Available [facility] [address] [facility] [place], [address], 01/26/2024 01:26:18 01/15/20 24 01/26/2024 DRUG MONIT ORING , PANEL 8 WITH CONFI RMATI ON, URINE pH 8.4 4.5-9. 0 normal Not Available [facility] [address] [place], [address], 01/26/2024 01:26:18 01/15/20 24 01/26/2024 DRUG MONIT ORING , PANEL 8 WITH CONFI RMATI ON, URINE oxidant NEGATI VE mcg/m L <200 normal Not Available [facility] [address] [place], [address], 01/26/2024 01:26:18 01/15/20 24 01/26/2024 DRUG MONIT [...] 10pm EST Not Available [facility] [address] [place], [address], 01/26/2024 01:26:19 01/15/20 24 01/26/2024 CULTU RE, URINE , ROUTI NE culture, urine, routine SEE NOTE CULTU RE, URINE , ROUTI NE Micro Numbe r: [id number] Test Statu s: Final Speci men Sourc e: Urine Speci men Quali ty: Adequ ate Resul t: No Growt h Not Available [facility] [address] [place], [address], 01/26/2024 01:26:19 01/15/20 24 01/15/2024 urina lysis , dipst ick Leukocytes Modera te Not Available [address], [address], 01/15/2024 16:55:16 01/15/20 24 01/15/2024 urina lysis , dipst ick Nitrite negati ve Not Available [address], [address], 01/15/2024 16:55:16 01/15/20 24 01/15/2024 urina lysis , dipst ick Urobilinogen .2 Not Available [address], [address], 01/15/2024 16:55:16 01/15/20 24 01/15/2024 urina lysis , dipst ick Protein Negati ve Not Available [address], [address], 01/15/2024 16:55:16 01/15/20 24 01/15/2024 urina lysis , dipst ick pH 6.0 Not Available [address], [address], 01/15/2024 16:55:16 01/15/20 24 01/15/2024 urina lysis , dipst ick Blood Negati ve Not Available [address], [address], 01/15/2024 16:55:16 01/15/20 24 01/15/2024 urina lysis , dipst ick Specific [place] 1.020 Not Available [address], [address], 01/15/2024 16:55:16 01/15/20 24 01/15/2024 urina lysis , dipst ick Ketone Negati ve Not Available [address], [address], 01/15/2024 16:55:16 01/15/20 24 01/15/2024 urina lysis , dipst ick Bilirubin Negati ve Not Available [address], [address], 01/15/2024 16:55:16 01/15/20 24 01/15/2024 urina lysis , dipst ick Glucose Negati ve Not Available [address], [address], 01/15/2024 16:55:16 12/11/19 24 12/11/2023 US, obste tric, trans vagin al No observ ation record ed. [email or web address] [address], [place], [address], 12/14/2023 10:33:57 12/18/1912/18/2023 US, obste tric, trans vagin al No observ ation record ed. [email or web address] [facility] [address] [place], [address], 12/23/2023 15:48:00 12/18/19 US, obste tric No observ ation record ed. [email or web address] [facility] [address] [place], [address], 12/18/2023 11:51:05 Result Notes None recorded. Problems Name Problem SNOMED Code Status Onset Date Resolution Date Notes Provider Name and Address Organization Details Recorded Time Tinea corporis 78200191 Active 2022 Rhonda Watkins APRN [address] [place] [address], [address], [employer] 3 15:13:40 Pityrias is versicol or 10569467 Active 2022 Rhonda Watkins APRN [address] [place] [address], [address], [employer] 3 15:59:21 Depressi ve disorder 41311271 Active 2022 Rhonda Watkins APRN [address] [place] [address], [address], [employer] 3 15:59:36 Overacti ve urinary bladder 080580204 Active 2022 Rhonda Watkins APRN [address] [place] [address], [address], [employer] 3 15:59:50 Mixed urinary incontin ence 240117501 Active 2022 Rhonda Watkins APRN [address] [place] [address], [address], [employer] 3 16:01:47 Acute pharyngi tis 241997433 Active 2022 Rhondacorey Watkins APRN [address] [place] [address], [address], [employer] 3 17:50:47 Missed period 06102327 Active 2022 Rhonda Watkins APRN [address] [place] [address], [address], [employer] 3 13:04:58 Nausea and vomiting 97490978 Active 2022 Rhonda Watkins APRN [address] [place] [address], [address], [employer] 3 13:41:40 Constipa tion 55323591 Active 2022 Rhonda Watkins APRN [address] [place] [address], [address], [employer] 3 13:41:44 Pelvic and perineal pain 085167016 Active 2022 Rhonda Watkins APRN [address] [place] [address], [address], [employer] 3 17:12:13 Genital herpes simplex 39117093 Active 2022 Rhonda Watkins APRN [address] [place] [address], [address], [employer] 3 17:12:40 Abdomina l pain 09551819 Active 2022 Rhonda Watkins APRN [address] [place] [address], [address], [employer] 3 09:38:02 Streptoc occal sore throat 29230203 Active [address], [address], [employer] 3 08:58:06 Vaginal irritati on 351364019 Active 2023 Rhonda Watkins APRN [address] [place] [address], [address], [employer] 4 12:47:40 Pregnanc y 37983634 Completed 202308/30/2024 ESTELLE ONOFRE maxine, [employer] 5 14:48:36 Tachycar brannon 6105434 Active 2023 On metoprolo l 12.5mg QD Francy Corey, DO [address] [place] [address], [address], [employer] 4 14:10:47 Tachycar brannon 7963465 Completed 2023 On metoprolo l 12.5mg QD Francydaniel Nicole DO [address] [place] [address], [address], [employer] 4 14:10:47 Sore throat 539544308 Active 2023 NEHEMIAH Sims [address] [place] [address], [address], [employer] 4 14:33:22 Gestatio n period, 9 weeks 574623 Active 2023 NEHEMIAH Sims [address] [place] [address], [address], [employer] 4 14:33:29 Problem Notes None recorded. Procedures Surgical History Date Name Laterality Status Provider Name and Address Organization Details Recorded Time 12/11/19 Date of Last Pap Smear completed Francy Evans [employer] 10/20/2023 13:29:10 Tonsillectomy completed [employer] 12/10/2022 14:43:50 hand repair completed BORIS JANE [employer] 07/23/2023 08:28:12 Dilation and Curettage completed TELLO EMMETT [employer] 12/09/2023 10:10:06 Imaging Results None recorded. Procedure Notes None recorded. Medical Equipment None Reported. Allergies Allergen ID Allergen Name Allergen Category Reaction Reaction Severity Criticality Documentation Date Start Date Code Code System Note Provider Name and Address Organization Details Recorded Time 13348 Product containin g penicilli n (product) medicatio n Not available Not available Not available 12/10/2022 36360 8001 SNOMED [employer] SH[employer] 3 14:48:49 47474 Augmentin medicatio n Not available Not available Not available 12/10/2022 68569 2 RxNorm [employer] 3 14:48:54 Medications Name Sig Start Date [...] Updated DateTime 12/11/2023 167.64 cm TELLO SHERMAN [employer] 12/11/2023 16:30:09 Date Recorded Body weight Provider Name an d Address Organization Details Last Updated DateTime 12/16/2023 06428.723439 g Francy Nicole, DO [address] [place] [address], [address], [employer] 12/22/2023 12:17:21 Date Recorded Body height Body mass index (BMI) Systolic blood pressure Diastolic blood pressure Provider Name and Address Organization Details Last Updated DateTime 12/16/2023 167.64 cm 22.2 kg/m2 110 mm[Hg] 70 mm[Hg] Mychal Parnell [employer] 12/16/2023 09:55:12 Date Recorded Body weight Provider Name an d Address Organization Details Last Updated DateTime 12/18/2023 46294.54907 g Geno BREWSTER [address] [place], [address], [employer] 12/18/2023 11:47:26 Date Recorded Body height Body mass index (BMI) Provider Name and Address Organization Details Last Updated DateTime 12/18/2023 167.64 cm 22.1 kg/m2 TELLO EMMETT SHERMAN [employer] 12/18/2023 11:43:41 Date Recorded Body height Body mass index (BMI) Body weight Oxygen saturation Oxygen saturation in Arterial blood by Pulse oximetry Heart rate Body temperature Systolic blood pressure Diastolic blood pressure Provider Name and Address Organization Details Last Updated DateTime 167.64 cm 22.3 kg/m2 53453.7 5 g 98 % 98 % 81 /min 98.3 [degF] 113 mm[Hg] 73 mm[Hg] Shani Bowser [employer] 13:12:47 Date Recorded Body height Provider Name an d Address Organization Details Last Updated DateTime 01/15/2024 167.64 cm Mychal Parnell Aplicor 01/15/2024 16:54:15 Date Recorded Body weight Systolic blood pressure Diastolic blood pressure Provider Name and Address Organization Details Last Updated DateTime 01/15/2024 52454.5623 2 g 112 mm[Hg] 62 mm[Hg] Ean Means [employer] 01/15/2024 16:59:36 Social History Question Answer Notes LastModified by Organizat ion Details LastModified Time Tobacco Smoking Status Former Smoker BORIS BUCK goodman, [employer]. 07/23/2023 08:27:54 What Is Your Level Of Caffeine Consumption? Heavy Information not available 12/10/2022 Are You A Caregiver? No Information not available 12/10/2022 In The 14 Days Before Symptom Onset, Have You Had Close Contact With A Laboratory-confi ed COVID-19 While That Case Was Ill? No [...] Or The Highest Degree You Have Received? [id number] Information not available 12/10/2022 Who Is Your Employer? [employer] Information not available 12/10/2022 Have There Been Any Changes To Your Family Or Social Situation? No Information not available 12/10/2022 When Did You Quit Smoking? 1-5yearssinmarya alessandra Information not available 07/23/2023 Which Of Your Hands Is Dominant? Right Information not available 12/10/2022 What Was The Date Of Your Most Recent Tobacco Screening? 01/15/2024 Information not available 01/15/2024 What Is Your Current Pack Years? 10packyears [email or web address] Information not available 07/23/2023 Have You Ever [...] Has Tobacco Cessation Counseling Been Provided? Yes [email or web address] Information not available 10/20/2023 On What Date [...] used smokeless tobacco? Never used smokeless tobacco [place] [address] Information not available 07/23/2023 Are you currently employed? Yes Information not available 12/10/2022 Do you have transportation difficulties? No Information not available 12/10/2022 Are you able to walk? YESWOREST Information not available 12/10/2022 Do you have difficulty doing errands alone? No Information not available 12/10/2022 What is your occupation? [employer] Information not available 12/10/2022 Do you have [...] 14:52:23 Medical History Condition Response Other Y Hospitalizations N Emergency room visit since last appointm ent. [...] Organization Details Recorded Time IPV 2 completed TELLO EMMETT SHERMAN null, [employer] 12/10/2022 14:42:16 MMR 2 completed TELLO EMMETT SHERMAN null, [employer] 12/10/2022 14:42:16 COVID-19 vaccine, vector-nr, rS-Ad26, PF, 0.5 mL 1 completed TELLO EMMETT SHERMAN null, [employer] 12/10/2022 14:42:16 Tdap 0 completed [employer] SHERMAN null, [employer] 12/10/2022 14:42:16 varicella 1 completed TELLO EMMETT SHERMAN null, [employer] 12/10/2022 14:42:16 HPV, quadrivalent 1 completed TELLOPressyLASCO null, [employer] 12/10/2022 14:42:16 Hep A, ped/adol, 2 dose 1 completed TELLO EMMETT SHERMAN null, [employer] 12/10/2022 14:42:16 Hep A, ped/adol, 2 dose 0 completed TELLO EMMETT SHERMAN null, [employer] 12/10/2022 14:42:16 DTaP, unspecified formulation 2 completed TELLO EMMETT SHERMAN null, [employer] 12/10/2022 14:42:16 Influenza, split virus, quadrivalent, PF 3 completed Francy goodman [facility] 09/22/2023 12:41:20 Past Encounters Encounter ID Performer Location Encounter Start Date Encounter Closed Date Diagnosis/Indication Diagnosis SNOMED-CT Code Diagnosis ICD10 Code Diagnosis Note [id number] Rhonda Watkins [facility] Eric Espresso [place] [address] 12/10/2022 14:38:30 12/10/2022 16:46:26 Pityriasis versicolor 52214594 B36.0 Depressive disorder 3548 9007 F32.A Overactive urinary bladder 942186862 N32.81 Mixed urin glenn incontinence 575485342 N39.46 Screening for malignant neoplasm of cervix 034075353 Z12.4 [id number] Rhonda Odeniam [facility] [employer] [place] [address] 01/16/2023 14:12:44 01/16/2023 15:00:55 Vaginal irritation 142605582 N89.8 Acute pharyngitis 387033 003 J02.9 [id number] Rhonda Watkins [facility] Eric Espress[employer] [place] [address] 02/04/2023 07:51:37 02/05/2023 10:48:21 Pelvic and perineal pain 267001394 R10.2 Genital he rpes simplex 76546880 A60.9 [id number] Yolette Sotelo [address] [address] 04/18/2023 10:23:36 04/18/2023 11:55:33 Acute pharyngitis 776985411 J02.9 Influenza caused by Influenza A virus 630502457 J09.X2 off work until until Thursday [id number] Bharati Tong [address] [address] 04/21/2023 08:50:39 04/21/2023 09:56:48 Missed period 58391497 N92.5 Influenza caused by Influenza A virus 916979101 J09.X2 [id number] BG CATALAN, [address] [place] [address] 07/23/2023 08:09:18 07/23/2023 09:21:43 Viral screening 164369445 Z11.59 Streptococ farhan sore throat 97924434 J02.0 [id number] Rhondacorey Odennikole [facility] [address] [place] [address] 09/22/2023 12:09:54 09/22/2023 13:01:44 Vaginal irritation 856741740 N89.8 [id number] Rhonda June [facility] [address] [place] [address] 10/20/2023 13:11:29 10/20/2023 15:12:45 Vaginal irritation 993666972 N89.8 [id number] TAMIA WILL MD [facility] [address] [place] [address] 12/09/2023 09:32:48 12/09/2023 10:44:16 Missed period 40214743 N92.5 Intrauteri ne 32960168 Z34.90 [id number] TAMIA WILL MD [facility] [address] [place] [address] 12/11/2023 16:01:47 12/11/2023 16:33:10 [id number] Francy Nicole DO [facility] [address] [place] [address] 12/16/2023 09:48:15 12/16/2023 16:56:35 01414100 Z33.1 Dating US scheduled in 2 days Tachycardia 3267818 R00. 0 Prescribed metoprolol 25mg QD, has been taking 12.5 [id number] TAMIA WILL MD [facility] [address] [place] [address] 12/18/2023 10:55:41 12/18/2023 11:59:42 Intrauterine 97903842 Z34.90 [id number] Jocelyn Finney, NEHEMIAH [facility] - [address] [place] [address] 01/06/2024 12:33:43 01/06/2024 15:00:47 Sore throat 624250427 J02.9 Acute pharyngitis 408506 003 J02.9 Gestation period, 9 weeks 612154 Z3A.09 Normal weight 73129949 Z 68.22 [id number] Francy Nicole DO [facility] [address] [place] [address] 01/15/2024 16:31:36 01/15/2024 17:20:47 58524658 Z33.1 Health Concerns Section Related Observation LastModified by Organization Detai ls LastModified Time None Recorded Concern Status LastModified by Organization Details LastModified Time None Recorded Advance Directives Directive None Recorded Payers Insurance Date Sequence Insurance Name Policy Number Policy Zaidi Covered Member ID Zaidi Member ID Guarantor Name 06/13/2024 1 [facility] (MEDICAID HMO) [facility] [id number] [facility] 06/01/2023 1 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 SLIDING FEE SCHEDULE - DISCOUNT [facility] 12/16/2023 1 *SELF PAY* Re [facility] 12/16/2023 SLIDING FEE SCHEDULE - DISCOUNT [facility] 03/07/2024 2 *SELF PAY* [facility] 12/16/2023 [facility]ICAID[facility] [id number] [facility] Notes Date Note Type Note Provider Name [...] is given warnings. TAMIA WILL MD [address] [place], [address], [employer] 12/11/2023 16:35:43 12/16/2023 text/html This is a [...] in two days. Francy Nicole DO [address] [place], [address], [employer] 12/22/2023 12:21:03 01/06/2024 text/html Sore ThroatRepor [...] neck; no muffled voice;cough NEHEMIAH Sims [address] [place], [address], [employer] 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 Francy Nicole, DO [address] [place] [address], [address], [facility] [employer] 01/16/2024 14:11:27 OBGyn Episode Ob Episode Information Episode Created Date Number of Fetuses Patient Bloodtype Patient rh Status Prepregnancy Weight lbs Domestic Partner Domestic Partner Phone Father Name Afterschool Babysitter Status 12/11/19 1 CLOSED Fetus Data First [...] Domestic Partner Domestic Partner Phone Father Name Afterschool Babysitter Status 12/11/19 1 CLOSED Fetus Data First [...] Domestic Partner Domestic Partner Phone Father Name Afterschool Babysitter Status 12/18/19 24 1 CLOSED Fetus Data First Name Last Name Admitted to NICU Weight (g) Sex Living Outcome Pediatric Complications Fetus ID Race Codes Race Delivery Type 2489.94 [id number] F true Full Term 8847 2106-3 White Problems Problem Notes Problem Name Start Date End Date Resolution Snomed Code Not e Tachycardia 12/22/2023 9405014 On meto prolol 12.5mg QD Cole Calculation Initial Cole Date Initial Exam Date Initial Exam Provider Initial Ultrasound Date Last Menstrual Period Date Ultra Sound Weeks Gestation 08/09/2023 12/18/2023 [id number] 12/18/2023 11/03/2023 6 Eighteen To Twenty Week Cole Update Ultra Sound Date Fundal Height At Umbil Quickening Date Ultra Sound Latest Weeks Gestation Final Cole Confirmed By Final Cole Confirmed Date Final Cole Date Ultra Sound Latest Days Gestation 0 [email or web address] 12/18/2023 08/09/19 25 0 Pre-jazzy Flowsheet Flowsheet Date 12/16/2023 Zepeda Score Blood Edema Fundus Height Fundus Units Glucose Ketones Leukocytes Nitrite Labor Signs Protein Cervic Dilation Cervic Effacement Cervic Station Type Weight in lbs Pre/Post Dialysis Refused With clothes 137.249753013816 BP Diastolic BP Location Tested BP Systolic [...] in lbs Pre/Post Dialysis Refused With clothes 137.500860616629 BP Diastolic BP Location Tested BP Systolic BP Type sitting Fetus Heart Rate Present Fetus Movement Comments Scan 6.3 week CRL. Labs toda y, 4 weeks Flowsheet Date 01/06/2024 Zepeda Score Blood Edema Fundus Height Fundus Units Glucose Ketones Leukocytes Nitrite Labor Signs Protein Cervic Dilation Cervic Effacement Cervic Station Type Weight in lbs Pre/Post Dialysis Refused With clothes 138.477336111906 BP Diastolic BP Location Tested BP Systolic BP Type 73 R arm 113 sitting Fetus Heart Rate Present Fetus Movement Comments Flowsheet Date 01/15/2024 Zepeda Score Blood Edema Fundus Height Fundus Units Glucose Ketones Leukocytes Nitrite Labor Signs Protein Cervic Dilation Cervic Effacement Cervic Station none neg Type Weight in lbs Pre/Post Dialysis Refused With clothes 136.199991784920 BP Diastolic BP Location Tested BP Systolic [...]
--- OUTSIDE RECORDS SUMMARY | 2025-01-20 10:02 | XMS_ITS | Encounter Summary ---
Author Organization Healthcare Address [address] [place] [address] Care Team Providers Care Engineer Sergeant Name Role Phone Angela Oleary RN Unavailable Unavailable Rey Wyatt MD Primary Care Provider [phone] Encounter Details Date Type Department Care Team [...] week 02/22/2024 How often do you attend [facility] or cheondoism services? Never 02/22/2024 Do you [...] Recorded Patient Health Questionnaire-2 Score 0 12/15/2024 [facility] [...] in a usp (including now)? No 02/09/2024 Lenore Depression Scale Answer Date Recorded Lenore Depression Scale Total 6 08/08/2024 The thought [...] drink first t casi in the morning (EYE-COAT TAILOR) to steady your nerves or to get rid of a hangover? 0 07/16/2024 CAGE Questionnaire Score 0 024 Utilities Answer Date Recorded In the past 12 months has th e [employer], gas, oil, or water company threatened to [...] Description 02/10/2025 10:00 AM EDT Office Visit [facility] Endocr[facility]ology [address] [place] [address] Rachel Khan PA [address] [place] [address] 02/16/2025 1:20 PM EDT Office Visit [facility] [address] [place] [address] Courtney Torres MD [address] [place] [address] 03/15/2025 3:[address] [facility] [address] [place] [address] Kendy Sanchez APRN [address] [place] [address] 04/17/2025 2:00 PM EDT Office Visit [facility] [address] [place] [address] Silverio Tam PA [address] [place] [address] documented as of this encounter [...] documented as of this encounter Care Teams Engineer Sergeant Relationship Specialty Start Date End Date Rey Wyatt MD [address] [place] [address] PCP - General 11/16/24 Angela Oleary, RN [facility] Registered Nurse Cardiology 02/17/24 documented as of this encounter
--- OUTSIDE RECORDS SUMMARY | 2025-01-20 10:02 | XMS_ITS | Encounter Summary ---
Author Organization Healthcare Address [address] [place] [address] Care Team Providers Care Mig Welder Name Role Phone Angela Oleary RN Unavailable Unavailable Rey Wyatt MD Primary Care Provider [phone] Encounter Details Date Type Department Care Team (Late st Contact Info) Description 12/16/2024 Results Follow-Up [facility] Endocrinology [address] [place] [address] Abundio Kyle MBBS [address] [id number] Social History Tobacco Use Types Packs/Day Years [...] often do you attend chur ch or scientologist services? Never 02/22/2024 Do you belong to [...] Recorded Patient Health Questionnaire-2 Score 0 12/15/2024 [facility] of Occupat ional [facility] - Occupational Stress Questionnaire Answer Date [...] health care facility (including now)? No 02/09/2024 [place] Depression Scale Answer Date Recorded [place] Depression Scale Total 6 08/08/2024 The thought [...] drink first t casi in the morning (EYE-ACCREDITED PHARMACY TECHNICIAN) to steady your nerves or to [...] 02/10/2025 10:00 AM EDT [facility] [address] [place] [phone] Rachel Khan PA [address] [place] [phone] 02/16/2025 1:20 PM EDT Office Visit [facility] [place] [address], [address] [place] [address] Courtney Torres MD [address] [place] [address] 03/15/2025 3:[address] [facility] [address], [address] [place] [address] Kendy Sanchez APRN [address] [place] [address] 04/17/2025 2:00 PM EDT Office Visit [facility] Medicine Specialties [address], 2[address] [place] [address] Silverio Tam PA [address] [place] [address] documented as of this encounter Goals Goal Patient Goal Type Associated Problems Recent Progress Patient-Stated? Author Delayed Delivery Care Plan CPM S22 PP LABOR (OBSTETRICS) No Open Scheduling, Background documented as of this encounter Results * T4, free (01/17/2025 8:47 AM EDT) Free T4, Plasma 0.8 0.8 - 1.7 ng/dL 01/17/2025 11:38 AM EDT [facility]ALTHCARE LAB Blood Venous blood specimen / Unknown Venipuncture / Unknown 01/17/2025 8:47 AM EDT 01/17/2025 8:47 AM EDT Narrative HEALTHCARE LAB - 01/17/2025 11:38 AM EDT Free T4 Trimester Specific Ranges 1st Trimester 0.9 - 1.50 ng/dL 2nd Trimester 0.7 - 1.40 ng/dL 3rd Trimester 0.7 - 1.24 ng/dL us Roland Wooten MD LAB BLOOD ORDERABLES Final Resu lt Performing Organization Address [facility] de Phone Number [facility] [address] [place] [address] * TSH (01/17/2025 8:47 AM EDT) Thyroid Stimulating Hormone, Plasma 1.83 0.40 - 4.20 uIU/mL 01/17/2025 11:38 AM EDT [facility] Blood Venous blood specimen / Unknown Venipuncture / Unknown 01/17/2025 8:47 AM EDT 01/17/2025 8:47 AM EDT Narrative [facility] - 01/17/2025 11:38 AM EDT Trimester Specific Ranges TSH ( IU/mL) 1st Trimester 0.1 - 3.0 2nd Trimester 0.19 - 4.06 3rd Trimester 0.3 - 3.7 us Roland Wooten MD LAB BLOOD ORDERABLES Final Resu lt Performing Organization Address [facility] de Phone Number [facility] [address] [place] [address] documented in this encounter Visit Diagnoses Diagnosis [...] documented as of this encounter Care Teams Mig Welder Relationship Specialty Start Date End Date Rey Wyatt MD [address] [place] [address] PCP - General 11/16/24 Angela Oleary, RN [facility] Registered Nurse Cardiology 02/17/24 documented as of this encounter
--- OUTSIDE RECORDS SUMMARY | 2025-01-20 10:02 | XMS_ITS | Encounter Summary ---
Author Organization Healthcare Address [address] [place] [address] Care Team Providers Care Medical Technologist Generalist Name Role Phone Molly Louis MD Primary Care Provider [phone] Angela Oleary RN Unavailable Unavailable Rey Wyatt MD Primary Care Provider [phone] Reason for Visit * Reason Onset Date Comments Med Refill 03/23/2024 Encounter Details Date Type Department Care Team ([facility] Contact Info) Description 03/23/2024 Refill Medical Office Building Obstetrics and Gynecology [address], [address] [place] [address] Shalonda Davies, ORE BUYER [address] [place] [address] Social History Tobacco Use Types [...] How often do you attend chur or synagogue services? Never 02/22/2024 Do you belong to any clubs o r organizations such as mosque groups, unions, fraternal or athletic groups, or [...] Recorded Patient Health Questionnaire-2 Score 0 02/17/2024 [facility] of Occupat [...] in a alf (including now)? No 02/09/2024 [place] Depression Scale Answer Date Recorded [place] Depression Scale Total 8 02/22/2024 The thought [...] first t casi in the morning (EYE-CLIENT SUPPORT PROFESSIONAL) to steady your nerves or to [...] Description 02/10/2025 10:00 AM EDT Office Visit [facility] Endocrinology [address] [place] [address] Rachel Khan PA [address] [facility] [address] [place] [address] 02/16/2025 1:20 PM EDT Office Visit [facility] [place] [address], [address] [place] [address] Courtney Torres MD [address] [place] [address] 03/15/2025 3:30 PM EDT Consult [facility] [address], 1[address] [place] [address] Kendy Sanchez APRN [address] [place] [address] 04/17/2025 2:00 PM EDT Office Visit [facility] Medicine Specialties [address], [address] [place] [address] Silverio Tam PA [address] [place] [address] documented as of this encounter [...] as of this encounter Care Teams Medical Technologist Generalist Relationship Specialty Start Date End Date Molly Louis MD [address] [place], [place] [id number] PCP - General Family Medicine 02/09/24 11/15/24 Rey Wyatt MD [address] [place] [address] [place] [address] PCP - General 11/16/24 Angela Oleary, RN [facility] Registered Nurse Cardiology 02/17/24 documented as of this encounter
--- OUTSIDE RECORDS SUMMARY | 2025-01-20 10:03 | XMS_ITS | Encounter Summary ---
Author Organization Healthcare Address [address] [place] [address] Care Team Providers Care Feeder Driver Name Role Phone Angela Oleary RN Unavailable Unavailable Rey Wyatt MD Primary Care Provider [phone] Encounter Details Date Type Department Care Team (Late st Contact Info) Description 12/28/2024 Orders Only [facility] Medicine Specialties [address], [address] [place] [phone] Keya Minor RN [facility]IC[facility]INIC Diarrhea, [...] often do you attend chur ch or spiritism services? Never 02/22/2024 Do you belong to [...] Recorded Patient Health Questionnaire-2 Score 0 12/15/2024 [facility] of Occupat ional Health - Occupational [...] in a mcc (including now)? No 02/09/2024 [place] Depression Scale Answer Date Recorded [place] Depression Scale Total 6 08/08/2024 The thought [...] drink first t casi in the morning (EYE-SURGICAL SUPPLIES STERILIZER) to steady your nerves or to get [...] Description 02/10/2025 10:00 AM EDT Office Visit [facility] Endocrinology [address] [place] [phone] Rachel Khan PA [address] [place] [address] 02/16/2025 1:20 PM EDT Office Visit [facility] [place] [address], [address] [place] [address] Courtney Torres MD [address] [place] [address] 03/15/2025 3:[address] [facility] [address], 1[address] [place] [address] Kendy Sanchez APRN [address] [place] [address] 04/17/2025 2:00 PM EDT Office Visit [facility] Medicine Specialties [address], [address] [place] [address] Silverio Tam PA [address] [place] [address] documented as of this encounter [...] documented as of this encounter Care Teams Feeder Driver Relationship Specialty Start Date End Date Rey Wyatt MD [address] [place] [address] PCP - General 11/16/24 Angela Oleary, RN [facility] Registered Nurse Cardiology 02/17/24 documented as of this encounter
--- OUTSIDE RECORDS SUMMARY | 2025-01-20 10:03 | XMS_ITS | Encounter Summary ---
Author Organization Healthcare Address [address] [place] [address] Care Team Providers Care Displayer Merchandise Name Role Phone Angela Oleary RN Unavailable Unavailable Rey Wyatt MD Primary Care Provider [phone] Encounter Details Date Type Department Care Team (Late st Contact Info) Description 12/20/2024 Results Follow-Up [facility] Medicine Specialties [address], [address] [place] [address] Silverio Tam PA [address] [place] [address] Social History Tobacco Use Types [...] often do you attend chur ch or jewish services? Never 02/22/2024 Do you belong to any clubs o r organizations such as congregational groups, unions, fraternal or athletic groups, or [...] Recorded Patient Health Questionnaire-2 Score 0 12/15/2024 [facility] - [facility]ational Stress [...] in a penitentiary (including now)? 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) to steady your nerves or to [...] 02/10/2025 10:00 AM EDT Office Visit [facility] Endocrinology [address] [place] [address] Rachel Khan PA [address] [place] [address] 02/16/2025 1:20 PM EDT Office Visit [place] [facility] [place] [address], [address] [place] [address] Courtney Torres MD [address] [place] [address] 03/15/2025 3:30 PM EDT Consult [facility] [address], [address] [place] [address] Kendy Sanchez APRN [address] [place] [address] 04/17/2025 2:00 PM EDT Office Visit [facility] Medicine Specialties [address], [address] [place] [address] Silverio Tam PA [address] [place] [address] documented as of this encounter [...] documented as of this encounter Care Teams Displayer Merchandise Relationship Specialty Start Date End Date Rey Wyatt MD [address] [facility] [address] [place] [address] PCP - General 11/16/24 Angela Oleary, RN [facility] Registered Nurse Cardiology 02/17/24 documented as of this encounter
--- OUTSIDE RECORDS SUMMARY | 2025-01-20 10:03 | XMS_ITS | Encounter Summary ---
Author Organization Healthcare Address [address] [place] [address] Care Team Providers Care Operator And Truck Driver Name Role Phone Angela Oleary RN Unavailable Unavailable Rey Wyatt MD Primary Care Provider [phone] Encounter Details Date Type Department Care Team (Late st Contact Info) Description 01/18/2025 Results Follow-Up [facility] Endocrinology [address] [place] [address] Abundio Kyle MBBS [address] [id number] Social History Tobacco Use Types Packs/Day Years [...] Recorded Patient Health Questionnaire-2 Score 0 12/15/2024 [facility] of Occupat ional [facility] - Occupational Stress Questionnaire Answer [...] a senior care (including now)? 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) to steady your nerves or to get [...] Description 02/10/2025 10:00 AM EDT Office Visit [facility] Endocrinology [address] [place] [address] Rachel Khan PA [address] [place] [address] 02/16/2025 1:20 PM EDT Office Visit [facility] [place] [address] [facility] [address] [facility], [address] [place] [address] Courtney Torres MD [address] [facility] [address] [place] [address] 03/15/2025 3:30 PM EDT Consult [facility] [address], [address] [place] [address] Kendy Sanchez APRN [address] [place] [address] 04/17/2025 2:00 PM EDT Office Visit [facility] Medicine Specialties [address], [address] [place] [address] Silverio Tam PA [address] [place] [address] Scheduled Orders Name Type Priority Associated Diagnoses Orde r Schedule TSH Lab Routine Thyrotoxicosis with Tricia thyroiditis Expected: 03/03/2025 (Approximate), Expires: 07/22/2026 T4, free Lab Routine Thyrotoxicosis with Tricia thyroiditis Expected: 03/03/2025 (Approximate), Expires: 07/22/2026 documented as of this encounter Goals Goal [...] documented as of this encounter Care Teams Operator And Truck Driver Relationship Specialty Start Date End Date Rey Wyatt MD [address] [place] [address] PCP - General 11/16/24 Angela Oleary, RN [facility] Registered Nurse Cardiology 02/17/24 documented as of this encounter
--- OUTSIDE RECORDS SUMMARY | 2025-01-20 10:03 | XMS_ITS | Clinical Summary ---
Author Organization [facility] Address [address] [place] [address] Care Team Providers Care Inventory Accountant Name Role Phone Angela Oleary RN Unavailable Unavailable Rey Wyatt MD Primary Care Provider [phone] Allergies Active Allergy Reactions Criticality Noted Date [...] Active Additional Information Patient not taking.Reported on 01/17/2025 Vit-Fe Fumarate-FA ( Vitamins) 28-0.8 MG tablet Take 1 tablet by mouth 1 (one) time each day. 30 tablet 11 024 2024 Active Additional Information Patient not taking.Reported on 01/17/2025 sodium chloride ([place] Nasal [place]) 0.65 % nasal spray Administer 1 spray into each nostril if needed for congestion. 30 mL 12 024 Active Additional Information Patient not taking.Reported on 01/17/2025 Blood Glucose Monitoring Suppl (OneTouch Verio Reflect) w/Device kit Active OneTouch Verio test strip 1 each by Other route if needed. Active Lancets (OneTouch Delica Plus [id number]) [facility] Active ibuprofen 600 MG tablet Take 1 tablet (600 mg) by mouth every 6 (six) hours if needed for mild pain. 30 tablet 1 Active Additional Information Patient not taking.Reported on 01/17/2025 senna-docusate (Codi-Colace) 8.6-50 MG tablet Take 1 tablet by mouth 1 (one) time each day. 30 tablet 1 Active Additional Information Patient not taking.Reported on 01/17/2025 acetaminophen (Tylenol) 325 MG capsule Take 2 [...] Active Additional Information Patient not taking.Reported on 01/17/2025 busPIRone (Buspar) 5 MG tablet Take 1 tablet (5 mg) by mouth every night. Takes at 8PM 30 tablet Active famotidine (Pepcid) 20 MG tablet Take 1 tablet (20 mg) by mouth 2 (two) times a day. 60 tablet 11 025 Active cholecalciferol (Vitamin D-3) 50 MCG (2000 UT) capsule 025 Active Ventolin HFA 108 (90 Base) MCG/ACT inhaler 025 Active methIMAzole (Tapazole) 10 MG tablet Take 1 tablet by mouth daily. 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 90 tablet 3 025 Active fludrocortisone (Florinef) 0.1 MG tabletIndications :Pott's disease Take 1 tablet by mouth daily. 30 tablet 3 025 Active cefdinir (Omnicef) 300 MG capsule take [...] for 5 days. 53 tablet 025 2024 Hospital, Clinic, or Other Facility Administered [...] Encounters Date Type Department Care Team Description 01/18/2025 Results Follow-Up [facility] Endocrinology [address] [place] [address] Abundio Kyle MBBS 01/17/2025 6:36 AM EDT - 01/17/2025 11:59 PM EDT Hospital Encounter [facility] [address] [place] [address] Cody Barnett MD Abdominal pain, epigastric; Diarrhea, unspecified type; Weight loss; Hematochezia Discharge Disposition: Home or Self Care 01/17/2025 Travel 12/30/2024 Orders Only [facility] [address], [address] [place] [address] Silverio Tam PA 12/28/2024 Orders Only [facility] [address], [address] [place] [address] Silverio Tam PA Abdominal pain, epigastric (Primary Dx); Diarrhea, unspecified type; Weight loss; Hematochezia 12/28/2024 Results [facility] [address], [address] [place] [address] Estuardo Jon MD 12/28/2024 Orders Only [facility] [address], [address] [place] [phone] Keya Minor RN Diarrhea, unspecified type 12/20/2024 Results Follow-Up [facility] Medicine Specialties [address], [address] [place] [address] Silverio Tam PA 12/16/2024 Results Follow-Up [facility] [address] [place] [address] Abundio Kyle MBBS 12/15/2024 2:30 PM EDT Office Visit [facility] Medicine Specialties [address], [address] [place] [phone] Silverio Tam PA Weight loss (Primary Dx); Abdominal pain, epigastric; Diarrhea, unspecified type; Postural orthostatic tachycardia syndrome (POTS); Hematochezia; Elevated fecal calprotectin; Urticaria; History of anesthesia reaction; Gastroesophageal reflux disease, unspecified whether esophagitis present; Gilbert's syndrome; Nausea and vomiting, unspecified vomiting type; BMI 23.0-23.9, adult 12/15/2024 Travel 12/09/2024 Orders Only [facility] Medicine Specialties [address], [address] [place] [phone] Silverio Tam PA 12/08/2024 Travel 12/07/2024 7:03 AM EDT - 12/07/2024 11:59 PM EDT Hospital Encounter [facility] [address] 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 [address], [address] [place] [phone] Kendy Sanchez, SCHOOL BUS OPERATOR 11/14/2024 Orders Only [facility] Endocrinology [address] [place] [address] Abundio Kyle MBBS Thyrotoxicosis with Tricia thyroiditis (Primary Dx) 11/13/2024 Travel 11/11/2024 8:40 AM EDT Office Visit [facility] Endocrinology [address] [place] [address] (1), Roland Wooten Fellow Abundio Kyle MBBS Thyrotoxicosis with Tricia thyroiditis (Primary Dx); Hyperthyroidism 11/11/2024 Travel 10/21/2024 Telephone [facility] [place] [address] [place] [address] None, None 10/21/2024 Telephone [facility] Endocrinology [address] [place] [address] Roland Wooten MD 10/20/2024 Travel from Last 3 Months Immunizations Immunization Administration Dates Next Due DTaP, Unspecified 04/26/2002 HPV, Quadrivalent 05/29/2011 Hep A, ped/adol, 2 dose 11/21/2010,02/20/2010 IPV 04/26/2002 Influenza, injectable, quadr ivalent, preservative free 04/29/2023 MMR 07/18/2024(Deferred: Patient Refused),04/26/2002 Tdap 02/20/2010 Varicella 07/06/2001 Family History Medical History Relation Name Comments Autoimmune disease Brother 1 Tristan fagan Crohn's disease Brother 1 Tristan craft Immunodeficiency [...] How often do you attend chur or bahai services? Never 02/22/2024 Do you belong to any clubs o r organizations such as hinduism groups, unions, fraternal or athletic groups, or [...] Recorded Patient Health Questionnaire-2 Score 0 12/15/2024 [facility] - [...] a care home (including now)? 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[employer]) to steady your nerves or to get [...] EDT Office Visit [facility] [address] [place] [address] Rachel Khan PA [address] [facility] [address] [place] [phone] 02/16/2025 1:20 PM EDT Office Visit [facility] [place] [address], [address] [place] [address] Courtney Torres MD [address] [place] [address] 03/15/2025 3:30 PM EDT Consult [facility] [address], [address] [place] [address] Kendy Sanchez, TRISTAN [address] [place] [address] 04/17/2025 2:00 PM EDT [facility] [address], [address] [place] [address] Silverio Tam PA [address] [place] [address] Health Maintenance Due Date Last Done Comments [facility]-Infant/Child/Adol SDOH Screenings 1998 [facility]-IPV Vaccines (2 of 3 - 4-dose series) 05/24/2002 04/26/2002 [facility]-Varicella Vaccines (2 of 2 - 2-dose childhood series) 05/24/2002 07/06/2001 HPV Vaccines (2 - 2-dose series) 11/27/2011 05/29/2011 [facility]-Hepatitis B Vaccines (1 of 3 - 19+ 3-dose series) 2017 [facility]-Pap Smear 2019 [facility]-DTaP,Tdap,and Td Vaccines (3 - Td or Tdap) 02/21/2020 02/20/2010, 04/26/2002 TLR-[id number] Vaccine (2 - season) 2024 02/21/2021 [facility]- SDOH Screenings 08/11/2024 [facility]-Adult SDOH Screenings 08/11/2024 02/09/2024 [facility]-Influenza Vaccine (Season Ended) 2025 04/29/2023 [facility]-Depression Screening 12/15/2025 025, 12/15/2024, 08/08/2024 [facility]-Zoster Vaccines (1 of 2) 2048 07/06/2001 [facility]-Hepatitis A Vaccines Completed 011, 02/20/2010 [facility]-Hepatitis [...] epigastric Diarrhea, unspecified type Weight loss Hematochezia TSH Routine 01/17/2025 8:47 AM EDT Thyrotoxicosis with Tricia thyroiditis FREE T4, PLASMA Routine 01/17/2025 8:47 AM EDT Thyrotoxicosis with Tricia thyroiditis TRIIODOTHYRONINE, FREE (FREE T3)(SO) Routine 01/17/2025 8:47 AM EDT Hyperthyroidism THYROID STIMULATING IMMUNOGLOBULIN (SO) Routine 01/17/2025 8:47 AM EDT Hyperthyroidism THYROID STIMULATING HORMONE RECEPTOR ANTIBODY (TRAB)(SO) Routine 01/17/2025 8:47 AM EDT Hyperthyroidism XR ABDOMEN 1 VIEW Routine 12/28/2024 9:4 [...] Recently Relevant to Health Maintenance Results * Capsule Endoscopy (01/19/2025 3:17 PM [...] CELESTE GI PROCEDURE ORDERABLES Final Result * TRIIODOTHYRONINE, FREE (FREE T3)(SO) (01/17/2025 8:47 AM EDT) TRIIODOTHYRONI NE, FREE (FREE T3) 2.7 2.5 - 4.3 pg/mL 01/18/2025 11:56 PM EDT [facility] ([place]) Blood Venous blood specimen / Unknown Venipuncture / Unknown 01/17/2025 8:47 AM EDT 01/17/2025 8:47 AM EDT Narrative [facility] ([place]) - 01/18/2025 11:56 PM EDT REFERENCE INTERVAL: Triiodothyronine, Free (Free T3) Access complete set of age- and/or gender-specific reference intervals for this test in the [facility] Test Directory ([facility] [employer]). Performed By: [facility] [address] [place] [address] Supervisor Ski Production: Wilebr Pardo MD, PhD CLIA Number: [id number] Saskia Garcia MD LAB BLOOD ORDERABLES Final Resul t Performing Organization Address [facility] de Phone Number [facility]) [address] [place] [address] * Thyroid Stimulating Hormone Receptor Antibody (01/17/2025 8:47 AM EDT) TSH Receptor Antibody <1.10 <=1.75 IU/L 01/19/2025 1:20 AM EDT [facility] ([facility]) Serum Venous blood specimen / Unknown 01/17/2025 8:47 AM EDT 01/17/2025 8:47 AM EDT Narrative [facility]) - 01/19/2025 1:20 AM EDT Performed By: [facility] [address] [place] [address] Supervisor Ski Production: Wilber Pardo MD, PhD CLIA Number: [id number] Saskia Garcia MD LAB BLOOD ORDERABLES Final Resul t Performing Organization Address [facility] de Phone [place] [address] * Thyroid stimulating immunoglobulin (01/17/2025 8:47 AM EDT) TSI Result 0.11 <=0.54 IU/L 01/19/2025 12:49 AM EDT [facility] ([facility]) Serum Venous blood specimen / Unknown 01/17/2025 8:47 AM EDT 01/17/2025 8:47 AM EDT Narrative [facility] ([facility]) - 01/19/2025 12:49 AM EDT INTERPRETIVE INFORMATION: Thyroid Stimulating Immunoglobulin (TSI) 0.54 IU/L or less.........Consistent with healthy thyroid function or non-Graves thyroid or autoimmune disease. Those with healthy thyroid function typically have results less than 0.1 IU/L. 0.55 IU/L or greater......Consistent with Graves disease (autoimmune hyperthyroidism) This assay specifically detects thyroid stimulating autoantibodies. For diagnostic purposes, the results obtained from this assay should be used in combination with clinical examination, patient medical history, and other findings. Performed By: [facility] [address] [place] [address] Supervisor Ski Production: Wilber Pardo MD, PhD CLIA Number: [id number] Saskia Garcia MD LAB BLOOD ORDERABLES Final Resul t Performing Organization Address [facility] de Phone Number [facility] ([place]) [address] [place] [address] * TSH (01/17/2025 8:47 AM EDT) Only the most recent of4 resultswithin the time period is included. Thyroid Stimulating Hormone, Plasma 1.83 0.40 - 4.20 uIU/mL 01/17/2025 11:38 AM EDT [facility] Blood Venous blood specimen / Unknown Venipuncture / Unknown 01/17/2025 8:47 AM EDT 01/17/2025 8:47 AM EDT Narrative [facility] - 01/17/2025 11:38 AM EDT Trimester Specific Ranges TSH ( IU/mL) 1st Trimester 0.1 - 3.0 2nd Trimester 0.19 - 4.06 3rd Trimester 0.3 - 3.7 us Roland Wooten MD LAB BLOOD ORDERABLES Final Resu lt [facility] [address] [place] [address] * T4, free (01/17/2025 8:47 AM EDT) Only the most recent of4 resultswithin the time period is included. Free T4, Plasma 0.8 0.8 - 1.7 ng/dL 01/17/2025 11:38 AM EDT [facility] Blood Venous blood specimen / Unknown Venipuncture / Unknown 01/17/2025 8:47 AM EDT 01/17/2025 8:47 AM EDT Narrative [facility] - 01/17/2025 11:38 AM EDT Free T4 Trimester Specific Ranges 1st Trimester 0.9 - 1.50 ng/dL 2nd Trimester 0.7 - 1.40 ng/dL 3rd Trimester 0.7 - 1.24 ng/dL us Roland Wooten MD LAB BLOOD ORDERABLES Final Resu lt Performing Organization Address [facility] de Phone Number [facility] [address] [place] [address] * XR Abdomen 1 View (12/28/2024 9:40 AM EDT) Anatomical Region Laterality Modality Body Digital Radiogra phy Estuardo Jon MD IMG XR PROCEDURES Final Result * Cytomegalovirus (CMV) Quantitative PCR (12/15/2024 3:29 PM EDT) Pathologist [facility] Cytomegalovirus (CMV) Quantitative Interpretation Not Detected Not Detected 12/19/2024 2:26 PM EDT [facility] Blood Venous blood specimen / Unknown Venipuncture / Unknown 12/15/2024 3:29 PM EDT 12/15/2024 3:30 PM EDT Narrative [facility] - 12/19/2024 2:26 PM EDT [...] ORDERABLES Final Res ult Performing Organization Address [facility] Co de Phone Number [facility] [address] [place] [address] * T3 (12/15/2024 3:29 PM EDT) Only the most recent of2 resultswithin the time period is included. Pathologist [facility] T3, Serum 177 87 - 187 ng/dL 12/15/2024 4:54 PM EDT [facility] Blood Venous blood specimen / Unknown Venipuncture / Unknown 12/15/2024 3:29 PM EDT 12/15/2024 3:30 PM EDT [facility] LAB BLOOD ORDERABLES Final Res ult [facility] [address] [place] [address] * Brayan-Holguin virus VCA, IgM (12/15/2024 3:29 PM EDT) [facility] EBV ANTIBODY TO VIRAL CAPSID ANTIGEN IGM <10.0 0.0 - 43.9 U/mL 12/18/2024 11:09 AM EDT [facility] ([facility]) Blood Venous blood specimen / Unknown Venipuncture / Unknown 12/15/2024 3:29 PM EDT 12/15/2024 3:30 PM EDT Narrative [facility]) - 12/18/2024 11:09 AM EDT INTERPRETIVE INFORMATION: Brayan-Holguin Virus Antibody to Viral Capsid Antigen, IgM 35.9 U/mL or less.......Not Detected 36.0-43.9 U/mL..........Indeterminate - Repeat testing in 10-14 days may be helpful. 44.0 U/mL or greater....Detected Performed By: [facility] [address] [place] [address] Supervisor Ski Production: Wilber Pardo MD, PhD CLIA Number: [id number] [facility] LAB BLOOD ORDERABLES Final Res ult [facility] [employer]) [address] [place] [address] * (ABNORMAL) Brayan Holguin IgG Ab (12/15/2024 3:29 PM EDT) EBV ANTIBODY TO VIRAL CAPSID ANTIGEN IGG 185.0(H) 0.0 - 21.9 U/mL 12/18/2024 11:11 AM EDT [facility]) Blood Venous blood specimen / Unknown Venipuncture / Unknown 12/15/2024 3:29 PM EDT 12/15/2024 3:30 PM EDT Narrative [facility]) - 12/18/2024 11:11 AM EDT INTERPRETIVE INFORMATION: Brayan-Holguin Virus Antibody to Viral Capsid Antigen, IgG 17.9 U/mL or less.......Not Detected 18.0-21.9 U/mL..........Indeterminate - Repeat testing in 10-14 days may be helpful. 22.0 U/mL or greater....Detected Performed By: [facility] [address] [place] [address] Supervisor Ski Production: Wilber Pardo MD, PhD CLIA Number: [id number] us [facility] LAB BLOOD ORDERABLES Final Res ult [facility] [employer] ([employer])[place]) [address] [place] [address] * Prothrombin Time/INR (12/15/2024 3:29 PM EDT) Pathologist [facility] Prothrombin Time 13.7 12.0 - 14.3 sec LAB COAGULATION METHOD 12/15/2024 5:05 PM EDT [facility] INR 1.0 0.9 - 1.1 LAB COAGULATION METHOD 12/15/2024 5:05 PM EDT [facility] Blood Venous blood specimen / Unknown Venipuncture / Unknown 12/15/2024 3:29 PM EDT 12/15/2024 3:30 PM EDT Narrative [facility] - 12/15/2024 5:05 PM EDT OPTIMAL INR RANGES FOR PATIENT ON ORAL ANTICOAGULANT THERAPY Prevention of venous thromboembolism INR 2.0 to 3.0 In patients with heart disease: Atrial fibrillation INR 2.0 to 3.0 Valvular heart disease INR 2.0 to 3.0 Tissue heart valves INR 2.0 to 3.0 Mechanical prosthetic valves INR 2.5 to 3.5 Prevention of recurrent WA INR 2.5 to 3.5 us [facility] LAB BLOOD ORDERABLES Final Res ult [facility] [address] [place] [address] * (ABNORMAL) CBC and Differential (12/15/2024 3:29 PM EDT) [facility] WBC Count 5.38 3.70 - 10.30 10*3/uL LAB HEMATOLOGY METHOD 12/15/2024 4:38 PM EDT [facility] RBC Count 4.81 3.90 - 5.20 10*6/uL LAB HEMATOLOGY METHOD 12/15/2024 4:38 PM EDT [facility] HGB 12.6 11.2 - 15.7 g/dL LAB HEMATOLOGY METHOD 12/15/2024 4:38 PM EDT [facility] HCT 39.7 34.0 - 45.0 % LAB HEMATOLOGY METHOD 12/15/2024 4:38 PM EDT [facility] Platelet Count 311 155 - 369 10*3/uL LAB HEMATOLOGY METHOD 12/15/2024 4:38 PM EDT [facility] MCV 83 79 - 98 fL LAB HEMATOLOGY METHOD 12/15/2024 4:38 PM EDT [facility] MCH 26.2 26.0 - 32.0 pg LAB HEMATOLOGY METHOD 12/15/2024 4:38 PM EDT [facility] MCHC 31.7 30.7 - 35.5 g/dL LAB HEMATOLOGY METHOD 12/15/2024 4:38 PM EDT [facility] RDW 12.2 11.5 - 14.5 % LAB HEMATOLOGY METHOD 12/15/2024 4:38 PM EDT [facility] MPV 11.2 8.8 - 12.5 fL LAB HEMATOLOGY METHOD 12/15/2024 4:38 PM EDT [facility] nRBC 0.0 <=0.0 per 100 WBCs LAB HEMATOLOGY METHOD 12/15/2024 4:38 PM EDT [facility] Differential Type Automated LAB HEMATOLOGY METHOD 12/15/2024 4:38 PM EDT [facility] Neutrophils % 61 % LAB HEMATOLOGY METHOD 12/15/2024 4:38 PM EDT [facility] Lymphocytes % 32 % LAB HEMATOLOGY METHOD 12/15/2024 4:38 PM EDT [facility] Monocytes % 5 % LAB HEMATOLOGY METHOD 12/15/2024 4:38 PM EDT [facility] Eosinophils % 1 % LAB HEMATOLOGY METHOD 12/15/2024 4:38 PM EDT [facility] Basophils % 1 % LAB HEMATOLOGY METHOD 12/15/2024 4:38 PM EDT [facility] Immature Granulocytes % 0 % LAB HEMATOLOGY METHOD 12/15/2024 4:38 PM EDT [facility] Neutrophils Absolute 3.33 1.60 - 6.10 10*3/uL LAB HEMATOLOGY METHOD 12/15/2024 4:38 PM EDT [facility] Lymphocytes Absolute 1.70 1.20 - 3.90 10*3/uL LAB HEMATOLOGY METHOD 12/15/2024 4:38 PM EDT [facility] Monocytes Absolute 0.25(L) 0.30 - 0.90 10*3/uL LAB HEMATOLOGY METHOD 12/15/2024 4:38 PM EDT [facility] Eosinophils Absolute 0.03 0.00 - 0.50 10*3/uL LAB HEMATOLOGY METHOD 12/15/2024 4:38 PM EDT [facility] Basophils Absolute 0.05 0.00 - 0.10 10*3/uL LAB HEMATOLOGY METHOD 12/15/2024 4:38 PM EDT [facility] Immature Granulocytes Absolute 0.02 0.00 - 0.06 10*3/uL LAB HEMATOLOGY METHOD 12/15/2024 4:38 PM EDT [facility] Blood Venous blood specimen / Unknown Venipuncture / Unknown 12/15/2024 3:29 PM EDT 12/15/2024 3:30 PM EDT [facility] - 12/15/2024 4:38 PM EDT Therapeutic decision making should be based on absolute values, rather than percentages. us [facility] LAB BLOOD ORDERABLES Final Res ult [facility] [address] [place] [address] * (ABNORMAL) Comprehensive Metabolic Panel, Plasma (12/15/2024 3:29 PM EDT) Only the most recent of2 resultswithin the time period is included. Glucose, Plasma 84 74 - 99 mg/dL 12/15/2024 4:54 PM EDT [facility] BUN, Plasma 8 7 - 21 mg/dL 12/15/2024 4:54 PM EDT [facility] Creatinine, Plasma 0.60 0.60 - 1.10 mg/dL 12/15/2024 4:54 PM EDT [facility] BUN/Creatinine Ratio 13 12/15/2024 4:54 PM EDT [facility] Sodium, Plasma 140 136 - 145 mmol/L 12/15/2024 4:54 PM EDT [facility] Potassium, Plasma 4.1 3.6 - 4.9 mmol/L 12/15/2024 4:54 PM EDT [facility] Chloride, Plasma 105 97 - 107 mmol/L 12/15/2024 4:54 PM EDT [facility] CO2, Plasma 21(L) 22 - 29 mmol/L 12/15/2024 4:54 PM EDT [facility] Anion Gap 14 6 - 16 mmol/L 12/15/2024 4:54 PM EDT [facility] Total Calcium, Plasma 9.4 8.9 - 10.2 mg/dL 12/15/2024 4:54 PM EDT [facility] Total Protein 8.1(H) 6.3 - 7.9 g/dL 12/15/2024 4:54 PM EDT [facility] Albumin, Plasma 4.6 3.5 - 5.2 g/dL 12/15/2024 4:54 PM EDT [facility] AST, Plasma 16 10 - 35 U/L 12/15/2024 4:54 PM EDT [facility] ALT, Plasma 23 10 - 35 U/L 12/15/2024 4:54 PM EDT [facility] Alkaline Phosphatase, Plasma 58 35 - 104 U/L 12/15/2024 4:54 PM EDT [facility] Total Bilirubin, Plasma 0.7 0.2 - 1.1 mg/dL 12/15/2024 4:54 PM EDT [facility] eGFRcr 127.1 mL/min/1.7 3m*2 12/15/2024 4:54 PM EDT [facility] Comment:Reported eGFRcr in m L/min/1.73m2 is based the CKD-EPI 2020 equation that does not use a race coefficient. Blood Venous blood specimen / Unknown Venipuncture / Unknown 12/15/2024 3:29 PM EDT 12/15/2024 3:30 PM EDT us [facility] LAB BLOOD ORDERABLES Final Res ult [facility] [address] [place] [address] * Patency Capsule (12/07/2024 7:03 AM EDT) [...] abnormality. Procedure Note Aly Posada MD - 04/27/2025 CLINICAL INDICATION: palpitations TECHNIQUE: XR CHEST 1 [...] <6 <14 ng/L 11/20/2024 9:47 PM EDT [facility] Blood Venous blood specimen / Unknown Venipuncture / Unknown 11/20/2024 9:17 PM EDT 11/20/2024 9:20 PM EDT [employer] Vonnie DO LAB BLOOD ORDERABLES Final Re sult [facility] [address] [place] [address] * CBC (11/20/2024 9:17 PM EDT) WBC Count 4.69 3.70 - 10.30 10*3/uL LAB HEMATOLOGY METHOD 11/20/2024 9:23 PM EDT [facility] RBC Count 4.26 3.90 - 5.20 10*6/uL LAB HEMATOLOGY METHOD 11/20/2024 9:23 PM EDT [facility] HGB 11.8 11.2 - 15.7 g/dL LAB HEMATOLOGY METHOD 11/20/2024 9:23 PM EDT [facility] HCT 35.8 34.0 - 45.0 % LAB HEMATOLOGY METHOD 11/20/2024 9:23 PM EDT [facility] Platelet Count 197 155 - 369 10*3/uL LAB HEMATOLOGY METHOD 11/20/2024 9:23 PM EDT [facility] MCV 84 79 - 98 fL LAB HEMATOLOGY METHOD 11/20/2024 9:23 PM EDT [facility] MCH 27.7 26.0 - 32.0 pg LAB HEMATOLOGY METHOD 11/20/2024 9:23 PM EDT [facility] MCHC 33.0 30.7 - 35.5 g/dL LAB HEMATOLOGY METHOD 11/20/2024 9:23 PM EDT [facility] RDW 12.5 11.5 - 14.5 % LAB HEMATOLOGY METHOD 11/20/2024 9:23 PM EDT [facility] MPV 11.6 8.8 - 12.5 fL LAB HEMATOLOGY METHOD 11/20/2024 9:23 PM EDT [facility] nRBC 0.0 <=0.0 per 100 WBCs LAB HEMATOLOGY METHOD 11/20/2024 9:23 PM EDT [facility] Blood Venous blood specimen / Unknown Venipuncture / Unknown 11/20/2024 9:17 PM EDT 11/20/2024 9:20 PM EDT us Shani Kirax DO LAB BLOOD ORDERABLES Final Re sult Performing Organization Address City/[facility]/ZIP Co de Phone Number [facility] [address] [place] [address] * hCG qualitative (11/20/2024 9:17 PM EDT) Test Negative Negative 11/20/2024 10:02 PM EDT [facility] Blood Venous blood specimen / Unknown Venipuncture / Unknown 11/20/2024 9:17 PM EDT 11/20/2024 9:20 PM EDT Narrative [facility] - 11/20/2024 10:02 PM EDT Reference Range: Males and non- females: Negative. us Shani L Vonnie DO LAB BLOOD ORDERABLES Final Re sult [facility] [address] [place] [address] * Phosphorus (11/20/2024 9:17 PM EDT) Phosphorus, Plasma 3.5 2.5 - 4.5 mg/dL 11/20/2024 10:02 PM EDT [facility] Blood Venous blood specimen / Unknown Venipuncture / Unknown 11/20/2024 9:17 PM EDT 11/20/2024 9:20 PM EDT Zyncd DO LAB BLOOD ORDERABLES Final Re sult [facility] [address] [place] [address] * Magnesium (11/20/2024 9:17 PM EDT) Magnesium, Plasma 2.1 1.9 - 2.4 mg/dL 11/20/2024 10:02 PM EDT [facility] Blood Venous blood specimen / Unknown Venipuncture / Unknown 11/20/2024 9:17 PM EDT 11/20/2024 9:20 PM EDT Zyncd DO LAB BLOOD ORDERABLES Final Re sult Performing Organization Address [facility] Co de Phone Number [facility] [address] [place] [address] * (ABNORMAL) Blood gas panel, venous (11/20/2024 9:17 PM EDT) pH, Venous 7.38 7.32 - 7.43 LAB HEMATOLOGY METHOD 11/20/2024 9:21 PM EDT [facility] pCO2, Venous 44 37 - 52 mmHg LAB HEMATOLOGY METHOD 11/20/2024 9:21 PM EDT [facility] pO2, Venous 26 25 - 40 mmHg LAB HEMATOLOGY METHOD 11/20/2024 9:21 PM EDT [facility] SO2, Measured, Venous 44(L) 65 - 80 % LAB HEMATOLOGY METHOD 11/20/2024 9:21 PM EDT [facility] Base Excess, Venous 0.2 -2.0 - 3.0 mmol/L LAB HEMATOLOGY METHOD 11/20/2024 9:21 PM EDT [facility] Bicarbonate, Calculated, Venous 26 22 - 26 mmol/L LAB HEMATOLOGY METHOD 11/20/2024 9:21 PM EDT [facility] Hematocrit, Whole Blood 37.4 34.0 - 45.0 % LAB HEMATOLOGY METHOD 11/20/2024 9:21 PM EDT [facility] Sodium, Whole Blood 141 136 - 145 mmol/L LAB HEMATOLOGY METHOD 11/20/2024 9:21 PM EDT [facility] Potassium, Whole Blood 4.0 3.6 - 4.9 mmol/L LAB HEMATOLOGY METHOD 11/20/2024 9:21 PM EDT [facility] Chloride, Whole Blood 110(H) 97 - 107 mmol/L LAB HEMATOLOGY METHOD 11/20/2024 9:21 PM EDT [facility] Glucose, Whole Blood 98 74 - 99 mg/dL LAB HEMATOLOGY METHOD 11/20/2024 9:21 PM EDT [facility] Lactate, Venous, Whole Blood 1.0 0.5 - 2.2 mmol/L LAB HEMATOLOGY METHOD 11/20/2024 9:21 PM EDT [facility] Ionized Calcium, Whole Blood 4.8 4.6 - 5.1 mg/dL LAB HEMATOLOGY METHOD 11/20/2024 9:21 PM EDT [facility] Blood Venous blood specimen / Unknown Venipuncture / Unknown 11/20/2024 9:17 PM EDT 11/20/2024 9:20 PM EDT us Shani Shankar DO LAB BLOOD ORDERABLES Final Re sult [facility] [address] [place] [address] * EKG now - STAT (adult) (11/20/2024 8:52 PM EDT) EKG DIAGNOSIS CLASS Abnormal MUSE ECG Ventricular Rate 83 BPM MUSE ECG Atrial Rate 83 BPM MUSE ECG DE Interval 128 ms MUSE ECG QRSD Interval 72 ms MUSE ECG QT Interval 342 ms MUSE ECG QTC Interval 401 ms MUSE ECG P [place] 60 degrees MUSE ECG R [place] 62 degrees MUSE ECG T Wave [place] 21 degrees MUSE ECG Diagnosis Sinus rhythm [...] ORDERABLES Final Resu lt Performing Organization Address [facility]/ZIP Co de Phone Number MUSE ECG * HIV 1 & 2 Antibody/Antigen Screen (04/18/2024 10:13 AM EDT) Pathologist [facility] HIV 1 & 2 Antibody/Antigen Screen Non Reactive Non Reactive 04/18/2024 12:07 PM EDT [facility] Comment:Screening for HIV 1 & 2 antibodies, and P24 antigen is NONREACTIVE. No confirmatory testing is required. Blood Venous blood specimen / Unknown Venipuncture / Unknown 04/18/2024 10:13 AM EDT 04/18/2024 10:13 AM EDT Shalonda Davies APRN LAB BLOOD ORDERABLES Susannah l Result Performing Organization Address [facility] Co de Phone Number [facility] [address] [place] [address] * Hepatitis C Antibody - ED (02/07/2024 10:11 PM EDT) Pathologist [facility] Hepatitis C Antibody Negative Negative 02/07/2024 11:11 PM EDT [facility] Blood Venous blood specimen / Unknown Venipuncture / Unknown 02/07/2024 10:11 PM EDT 02/07/2024 10:18 PM EDT us Mark Roger MD LAB BLOOD ORDERABLES Final Resu lt Performing Organization Address [facility] Co de Phone Number [facility] [address] [place] [address] from Last 3 Months or Most Recently Relevant to Health Maintenance Additional Health Concerns Active Problems Noted Date Diagnosed Date CPM S22 PP LABOR (OBSTETRICS) 02/24/2024 Insurance [place] Advance Directives * Full Code (Latest Code [...] Patient has decision-making capacity? Yes Care Teams Inventory Accountant Relationship Specialty Start Date End Date Rey Wyatt MD [address] [facility] [address] [place] [id number] PCP - General 11/16/24 Angela Oleary, RN [facility] Registered Nurse Cardiology 02/17/24
--- OUTSIDE RECORDS SUMMARY | 2025-01-20 10:04 | XMS_ITS | Encounter Summary ---
Author Organization Healthcare Address [address] [place] [address] Care Team Providers Care Dealer Card Room Name Role Phone Molly Louis MD Primary Care Provider [phone] Angela Oleary RN Unavailable Unavailable Rey Wyatt MD Primary Care Provider [phone] Reason for Visit * Reason Onset Date Comments Med Refill 03/03/2024 Encounter Details Date Type Department Care Team ([facility] Contact Info) Description 03/03/2024 Refill Medical Office Building Obstetrics and Gynecology [address], [address] [place] [address] Santa RosaEarle Villagomez MD [address] [place] [address] Supervision of high risk in [...] How often do you attend chur or orthodox services? Never 02/22/2024 Do you [...] Recorded Patient Health Questionnaire-2 Score 0 02/17/2024 [facility] of Occupat ional Health - Occupational [...] in a halfway (including now)? No 02/09/2024 [place] Depression Scale Answer Date Recorded [place] Depression Scale Total 8 02/22/2024 The thought [...] requesting to speak with a nurse- see [employer] [facility] for details about symptoms she is experiencing. * Telephone Encounter - Luh Keenan RN - 03/04/2024 1:56 PM EDT Patient has refills on file. Needs to call pharmacy. Luh Keenan, RN documented in this encounter Plan of Treatment Upcoming Encounters Date Type Department Care Team (Late st Contact Info) Description 02/10/2025 10:00 AM EDT [facility] [address] [place] [phone] Rachel Khan PA [address] [facility] [address] [place] [phone] 02/16/2025 1:20 PM EDT Office Visit [facility] [place] [address], [address] [place] [address] Courtney Torres MD [address] [place] [address] 03/15/2025 3:30 PM EDT Consult [facility] [address], [address] [place] [address] Kendy Sanchez APRN [address] [place] [address] 04/17/2025 2:00 PM EDT Office Visit [facility] Medicine Specialties [address], 2[address] [place] [address] Silverio Tam PA [address] [place] [address] documented as of this encounter [...] documented as of this encounter Care Teams Dealer Card Room Relationship Specialty Start Date End Date Molly Louis MD [address] [place] [address] PCP - General Family Medicine 02/09/24 11/15/24 Rye Wyatt MD [address] [place] [address] [place] [address] PCP - General 11/16/24 Angela Oleary, RN [facility] Registered Nurse Cardiology 02/17/24 documented as of this encounter
--- OUTSIDE RECORDS SUMMARY | 2025-01-20 10:04 | XMS_ITS | Referral Summary ---
Author Organization [employer] Address [address] [place] [address] Care Team Providers Care Corporate Travel Coordinator Name Role Phone Molly Louis MD Primary Care Provider [phone] Allergies Active Allergy Reactions Criticality Noted Date [...] Date Guerrero rded Speak language other than Zimbabwean at home Not on file 08/13/2023 Want [...] on file Medical Devices Implanted Type Area Crane Man Device Identifier Shelf Expiration Date Model / Serial / Lot K-Wire [id number] - [id number] Implanted:Qty: 1 on 08/04/2022 by Rex Rene MD at [facility] IMPLANTS Right: Hand ANNIA:[employer] [id number] / / Wire K-Wire 1.6mm - [id number] Implanted:Qty: 1 on 08/04/2022 by Rex Rene MD at [facility] IMPLANTS Right: Hand Tappx GRP:Tappx TECH [id number] / / Insurance [facility] Advance Directives For more information, please contact: [phone] * Full Code (Latest Code Status on File) Date Activated Date Inactivated Comments 08/04/2022 6:03 AM 08/04/2022 11:35 AM Care Teams Corporate Travel Coordinator Relationship Specialty Start Date End Date Molly Louis MD [address] [place] [address] [address] [place] [address] PCP - General 08/22/24
--- OUTSIDE RECORDS SUMMARY | 2025-01-20 10:04 | XMS_ITS | Encounter Summary ---
Author Organization Healthcare Address [address] [place] [address] Care Team Providers Care Spray Gun Repairer Name Role Phone Angela Oleary RN Unavailable Unavailable Rey Wyatt MD Primary Care Provider [phone] Encounter Details Date Type Department Care Team (Late st Contact Info) Description 12/28/2024 Results Follow-Up [facility] Medicine Specialties [address], [address] [place] [address] Estuardo Jon MD [address] [place] [address] Social History Tobacco Use Types [...] Recorded Patient Health Questionnaire-2 Score 0 12/15/2024 [facility] - [facility] Stress Questionnaire Answer [...] in a alf (including now)? No 02/09/2024 [place] Depression Scale Answer Date Recorded [place] Depression Scale Total 6 08/08/2024 The thought [...] drink first t casi in the morning (EYE-WINDOW UNIT AIR CONDITIONING MECHANIC) to steady your nerves or to [...] Description 02/10/2025 10:00 AM EDT Office Visit [facility] Endocrinology [address] [place] [phone] Rachel Khan PA [address] [facility] [address] [place] [address] 02/16/2025 1:20 PM EDT Office Visit [facility] [place] [address], [address] [place] [address] Courtney Torres MD [address] [place] [phone] 03/15/2025 3:30 PM EDT Consult [facility] [address], 1[address] [place] [address] Kendy Sanchez, TRISTAN [address] [place] [address] 04/17/2025 2:00 PM EDT Office Visit [facility] Medicine Specialties [address], 2[address] [place] [address] Silverio Tam PA [address] [place] [phone] documented as of this encounter Goals Goal [...] documented as of this encounter Care Teams Spray Gun Repairer Relationship Specialty Start Date End Date Rey Wyatt MD [address] [place] [address] PCP - General 11/16/24 Angela Oleary, RN [facility] Registered Nurse Cardiology 02/17/24 documented as of this encounter
--- OUTSIDE RECORDS SUMMARY | 2025-01-20 10:04 | XMS_ITS | Encounter Summary ---
Author Organization Healthcare Address [address] [place] [address] Care Team Providers Care Credit Analyst Name Role Phone Pcp, No Primary Care Provider UnavailMolly Newman MD Primary Care Provider [phone] Angela Oleary RN Unavailable Unavailable Rey Wyatt MD Primary Care Provider [phone] Encounter Details Date Type Department Care Team (Late Contact Info) Description 01/22/2024 Orders Only External Location [address] [place] [phone] Provider, External Social History Tobacco Use Types [...] Month) No 024 2:42 PM EDT Parmjit Rcio, JANELL 2. Non-Specific Active Suici keron Thoughts (Past 1 Month) No 01/23/2024 2:42 PM EDT Parmjit Rico RN 6. Suicidal Behavior (Lifetime) No 2:42 PM EDT Parmjit Rico RN documented as of this encounter Plan of Treatment Upcoming Encounters Date Type Department Care Team (Late Contact Info) Description 02/10/2025 10:00 AM EDT Office Visit [facility] Endocrinology [address] [place] [phone] Rachel Khan PA [address] [place] [phone] 02/16/2025 1:20 PM EDT Office Visit [facility] [place] [address], [address] [place] [address] Courtney Torres MD [address] [place] [address] 03/15/2025 3:30 PM EDT Consult [facility] [address], 1[address] [place] [address] Kendy Sanchez APRN [address] [place] [address] 04/17/2025 2:00 PM EDT Office Visit [facility] Medicine Specialties [address], 2nd [place] [address] Silverio Tam PA [address] [place] [address] documented as of this encounter [...] documented as of this encounter Care Teams Credit Analyst Relationship Specialty Start Date End Date Pcp, No [address] [place] [address] PCP - General Family Medicine 01/22/24 02/08/24 Molly Louis MD [address] [place] [address] PCP - General Family Medicine 02/09/24 11/15/24 [place] [address] [place] [address] [address] [place] [address] PCP - General 11/16/24 Angela Oleary, RN [facility] Registered Nurse Cardiology 02/17/24 documented as of this encounter
--- OUTSIDE RECORDS SUMMARY | 2025-01-20 10:04 | XMS_ITS | Encounter Summary ---
Author Organization [employer] Address [address] [place] [address] Care Team Providers Care Air Force Pilot Name Role Phone Molly Louis MD Primary Care Provider [phone] Encounter Details Date Type Department Care Team (Late st Contact Info) Description 08/22/2024 Outside Orders [facility] Admitting [address] [place] [address] Silverio Tam, BOOKER [address] Floor [address] [place] [phone] Esophageal reflux (Primary Dx) Social History Tobacco [...] Date Guerrero rded Speak language other than Pakistani at home Not on file 08/13/2023 Want [...] EIA Negative Negative 08/23/2024 10:57 PM EST [employer] Comment: Performed By: [facility] [address] [place] [address] Therapy Tech: Wilber Pardo MD, PhD CLIA Number: [id number] Stool 08/22/2024 11:3 5 AM EST 08/22/2024 11:36 AM EST [facility] - GENERAL ORDERAB LES Final Result Performing Organization Address City/State/[facility] Co de Phone Number [employer] [address] [place] [address], [facility] [phone] * Calprotectin, Fecal by Immunoassay(SENDOUT) (08/22/2024 11:35 AM EST) Calprotectin, Fecal 26 <=49 ug/g 08/26/2024 8:14 AM EST [employer] Comment: REFERENCE INTERVAL: Calprotectin, Fecal by Immunoassay Less than 50 ug/g........Normal 50-120 ug/g..............Borderline elevated, test should be re-evaluated in 4-6 weeks. 121 ug/g or greater......Elevated Performed By: [facility] [address] [place] [address] Therapy Tech: Wilber Pardo MD, PhD CLIA Number: [id number] Stool 08/22/2024 11:3 5 AM EST 08/22/2024 11:36 AM EST us [facility] - GENERAL ORDERAB LES Final Result [employer] [address] [place] [address], [facility] [phone] documented in this encounter Visit Diagnoses Diagnosis Esophageal reflux- Primary documented in this encounter Care Teams Air Force Pilot Relationship Specialty Start Date End Date Molly Louis MD [address] [place] [address] PCP - General 08/22/24 documented as of this encounter
--- OUTSIDE RECORDS SUMMARY | 2025-01-20 10:04 | XMS_ITS | Encounter Summary ---
Author Organization Healthcare Address [address] [place] [address] Care Team Providers Care Gear Machine Operator General Name Role Phone Angela Oleary RN Unavailable Unavailable Rey Wyatt MD Primary Care Provider [phone] Encounter Details Date Type Department Care Team (Latest Contact Info) Description 01/17/2025 Travel Social History Tobacco Use Types Packs/Day [...] How often do you attend [facility] or faith services? Never 02/22/2024 Do you belong to any clubs o r organizations such as worship groups, unions, fraternal or athletic groups, or [...] Recorded Patient Health Questionnaire-2 Score 0 12/15/2024 [facility] of Occupat ional Health - Occupational [...] a senior care (including now)? 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) to steady your nerves or to get [...] Visit [facility] [address] [place] [address] Rachel Khan PA [address] [place] [address] 02/16/2025 1:20 PM EDT Office Visit [facility] [place] [address] [facility], [address] [place] [address] Courtney Torres MD [address] [place] [address] 03/15/2025 3:30 PM EDT Consult [facility] [address], 1[address] [place] [address] Kendy Sanchez APRN [address] [place] [address] 04/17/2025 2:00 PM EDT Office Visit [facility] Medicine Specialties [address], [address] [place] [address] Silverio Tam PA [address] [place] [address] documented as of this [...] documented as of this encounter Care Teams Gear Machine Operator General Relationship Specialty Start Date End Date Rey Wyatt MD [address] [place] [address] PCP - General 11/16/24 Angela Oleary, RN [facility] Registered Nurse Cardiology 02/17/24 documented as of this encounter
--- OUTSIDE RECORDS SUMMARY | 2025-01-20 10:04 | XMS_ITS | Clinical Summary ---
Author Organization [employer] Address [address] [place] [address] Care Team Providers Care Clothes Drier Assembler Name Role Phone Molly Louis MD Primary Care Provider [phone] Allergies Active Allergy Reactions Criticality Noted Date [...] Date Guerrero rded Speak language other than Barbadian at home Not on file 08/13/2023 Want [...] Ended) 2025 Medical Devices Implanted Type Area Shot Polisher Device Identifier Shelf Expiration Date Model / Serial / Lot K-Wire [id number] - [id number] Implanted:Qty: 1 on 08/04/2022 by Rex Rene MD at [facility] IMPLANTS Right: Hand ANNIA:[employer] [id number] / / Wire K-Wire 1.6mm - [id number] Implanted:Qty: 1 on 08/04/2022 by Rex Rene MD at [facility] IMPLANTS Right: Hand BUCK MED GRP:GATHER & SAVE TECH / / [place] [address] [place] [address] Advance Directives For more information, please contact: [phone] * Full Code (Latest Code Status on File) Date Activated Date Inactivated Comments 08/04/2022 6:03 AM 08/04/2022 11:35 AM Care Teams Clothes Drier Assembler Relationship Specialty Start Date End Date Molly Louis MD [address] [place] [address] [address] [place] [address] PCP - General 08/22/24
--- OUTSIDE RECORDS SUMMARY | 2025-01-20 10:04 | XMS_ITS | Encounter Summary ---
Author Organization Healthcare Address [address] [place] [id number] Care Team Providers Care Electrician Helper Name Role Phone Molly Louis MD Primary Care Provider [phone] Angela Oleary RN Unavailable Unavailable Rey Wyatt MD Primary Care Provider [phone] Reason for Visit * Reason Onset Date Comments Med Refill 03/03/2024 Encounter Details Date Type Department Care Team (Late st Contact Info) Description 03/03/2024 Refill [facility] Inpatient [address] [place] [address] Paris Marion MD [address] [place] [address] Social History Tobacco Use Types Packs/Day Years [...] Recorded Patient Health Questionnaire-2 Score 0 02/17/2024 [facility] Occupat ional [facility] - Occupational Stress Questionnaire Answer Date [...] in a jail (including now)? No 02/09/2024 [place] Depression Scale Answer Date Recorded [place] Depression Scale Total 8 02/22/2024 The thought [...] Description 02/10/2025 10:00 AM EDT Office Visit [facility] Endocrinology [address] [place] [address] Rachel Khan, PA [address] [place] [address] 02/16/2025 1:20 PM EDT Office Visit [facility] [place] [address], [address] [place] [address] Courtney Torres MD [address] [place] [address] 03/15/2025 3:30 PM EDT Consult [facility] [address], [address] [place] [address] Kendy Sanchez APRN [address] [place] [address] 04/17/2025 2:00 PM EDT Office Visit [facility] Medicine Specialties [address], [address] [place] [address] Silverio Tam PA [address] [place] [address] documented as of this encounter [...] documented as of this encounter Care Teams Electrician Helper Relationship Specialty Start Date End Date Molly Louis MD [address] [place] [address] PCP - General Family Medicine 02/09/24 11/15/24 [place] [address] [place] [address] [place] [address] PCP - General 11/16/24 Angela Oleary, RN [facility] Registered Nurse Cardiology 02/17/24 documented as of this encounter
--- OUTSIDE RECORDS SUMMARY | 2025-01-20 10:04 | XMS_ITS | Encounter Summary ---
Author Organization Healthcare Address [address] [place] [address] Care Team Providers Care Installment Dealer Name Role Phone Molly Louis MD Primary Care Provider [phone] Angela Oleary RN Unavailable Unavailable Rey Wyatt MD Primary Care Provider Reason for Visit * Reason Onset Date Comments Med Refill 07/19/2024 Encounter Details Date Type Department Care Team (Late st Contact Info) Description 07/19/2024 Refill [facility] [address], [address] [place] [address] Paris Marion MD [address] [place] [address] Social History Tobacco Use Types Packs/Day Years [...] How often do you attend chur or evangelical services? Never 02/22/2024 Do you belong to any clubs o r organizations such as confucianist groups, unions, fraternal or athletic groups, or [...] Recorded Patient Health Questionnaire-2 Score 0 06/22/2024 [facility] - Occupational Stress [...] in a mcc (including now)? 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) to steady your nerves or to get [...] EDT Office Visit [facility] [address] [place] [phone] Rachel Khan PA [address] [place] [phone] 02/16/2025 1:20 PM EDT Office Visit [facility] [place] [address], [address] [place] [address] Courtney Torres MD [address] [place] [address] 03/15/2025 3:30 PM EDT Consult [facility] [address], 1[address] [place] [address] Kendy Sanchez APRN [address] [place] [address] 04/17/2025 2:00 PM EDT Office Visit [facility] Medicine Specialties [address], 2[address] [place] [address] Silverio Tam PA [address] [place] [phone] documented as of this encounter Goals Goal [...] documented as of this encounter Care Teams Installment Dealer Relationship Specialty Start Date End Date Molly Louis MD [address] [place], [place] [id number] PCP - General Family Medicine 02/09/24 11/15/24 Rey Wyatt MD [address] [place] [address] [address] PCP - General 11/16/24 Angela Oleary, RN [facility] Registered Nurse Cardiology 02/17/24 documented as of this encounter
--- OUTSIDE RECORDS SUMMARY | 2025-01-20 10:04 | XMS_ITS | Encounter Summary ---
Author Organization [facility] [employer] [facility] Address [address] [place] [address] Care Team Providers Care Inside Meter Tester Name Role Phone Molly Louis MD Primary Care Provider [phone] Encounter Details Date Type Department Care Team (Late st Contact Info) Description 04/14/2024 Outside Orders [facility] Admitting [address] [place] [address] Silverio Tam, BOOKER [address] 2nd Floor Wing [place] [id number] Blood in stool (Primary Dx) Social History [...] Date Guerrero rded Speak language other than Bahraini at home Not on file 08/13/2023 Want [...] 87(H) <=49 ug/g 04/19/2024 11:26 PM EDT [facility] Comment: REFERENCE INTERVAL: Calprotectin, Fecal by Immunoassay Less than 50 ug/g.........Normal 50-120 ug/g...............Borderline elevated, test should be re-evaluated in 4-6 weeks. 121 ug/g or greater.......Elevated Performed By: [facility] [address] [place] [address] Machine Stoppage Frequency Checker: Wilber Pardo MD, PhD CLIA Number: [id number] Stool 04/14/2024 11:0 6 AM EDT 04/14/2024 11:47 AM EDT us [facility] - GENERAL ORDERAB LES Final Result [facility] Steele [address] [place] [address], [facility] [phone] documented in this encounter Visit Diagnoses Diagnosis Blood in stool- Primary documented in this encounter Care Teams Inside Meter Tester Relationship Specialty Start Date End Date Molly Louis MD [address] [place] [address] PCP - General 08/22/24 documented as of this encounter
--- OUTSIDE RECORDS SUMMARY | 2025-01-20 10:04 | XMS_ITS | Encounter Summary ---
Author Organization [facility] Address [address] [place] [address] Care Team Providers Care Newspaper Subscription Solicitor Name Role Phone Angela Oleary RN Unavailable Unavailable Rey Wyatt MD Primary Care Provider [phone] Reason for Referral * Imaging (Routine) - Closed Specialty Diagnoses / Procedures Referred By Mili joe Referred To Contact Gastroenterology Diagnoses Abdominal pain, epigastric Diarrhea, unspecified type Weight loss Hematochezia Procedures Capsule Endoscopy Silverio Tam PA [address] [place] [address] Phone: tel: fax: Referral ID Status Reason Start Date Expiration Date V isits Requested Visits Authorized [id number] Closed Specialty Services Required 12/28/2024 06/29/2026 1 1 Encounter Details Date Type Department Care Team (Late st Contact Info) Description 12/28/2024 Orders Only [facility] Medicine Specialties [address] 2nd [place] [address] Silverio Tam PA [address] [facility] [address] [place] [address] Abdominal pain, epigastric (Primary Dx); [...] often do you attend chur ch or anabaptism services? Never 02/22/2024 Do you belong to any clubs o r organizations such as hindu groups, unions, fraternal or athletic groups, or [...] Recorded Patient Health Questionnaire-2 Score 0 12/15/2024 [facility] ional Health - [...] in a penitentiary (including now)? No 02/09/2024 [place] Depression Scale Answer Date Recorded [place] Depression Scale Total 6 08/08/2024 The thought [...] drink first t casi in the morning (EYE-STRAW HAT BRUSHER) to steady your nerves or to get rid of a hangover? 0 07/16/2024 CAGE Questionnaire Score 0 024 Utilities Answer Date Recorded In the past 12 months has e [employer], gas, oil, or water [employer] threatened to shut off services in your [...] 10:00 AM EDT Office Visit [facility] Endocrinology [address] [place] [phone] Rachel Khan PA [address] [facility] [address] [place] [phone] 02/16/2025 1:20 PM EDT Office Visit [facility] [place] [address] [facility], [address] [place] [address] Courtney Torres MD [address] [facility] [address] [place] [address] 03/15/2025 3:30 PM EDT Consult [facility] [address] 1[address] [place] [address] Kendy Sanchez APRN [address] [place] [address] 04/17/2025 2:00 PM EDT Office Visit [facility] Medicine Specialties [address] [place] [address] Silverio Tam PA [address] [place] [address] documented as of this encounter Goals Goal Patient Goal Type Associated Problems Recent Progress Patient-Stated? Author Delayed Delivery Care Plan CPM S22 PP LABOR (OBSTETRICS) No Open Scheduling, Background documented as of this encounter Results * Capsule Endoscopy (01/19/2025 [...] images and this is my reading. Silverio CLEESTE GI PROCEDURE ORDERABLES Final Result documented in this encounter Visit Diagnoses Diagnosis Abdominal pain, epigastric- Primary Diarrhea, unspecified type Weight loss Loss of weight Hematochezia Blood in stool Abdominal pain, epigastric Diarrhea, unspecified type Weight [...] documented as of this encounter Care Teams Newspaper Subscription Solicitor Relationship Specialty Start Date End Date Rey Wyatt MD [address] [place] [address] PCP - General 11/16/24 Angela Oleary, RN [facility] Registered Nurse Cardiology 02/17/24 documented as of this encounter
--- OUTSIDE RECORDS SUMMARY | 2025-01-20 10:04 | XMS_ITS | Encounter Summary ---
Author Organization Healthcare Address [address] [place] [address] Care Team Providers Care Roads Superintendent Name Role Phone Angela Oleary RN Unavailable Unavailable Rey Wyatt MD Primary Care Provider [phone] Encounter Details Date Type Department Care Team (Late st Contact Info) Description 12/30/2024 Orders Only [facility] Medicine Specialties [address] [place] [address] Silverio Tam PA [address] [place] [address] Social History Tobacco Use Types [...] any clubs o r organizations such as scientologist groups, unions, fraternal or athletic groups, or [...] Health Questionnaire-2 Score 0 12/15/2024 [facility] - Occupational Stress Questionnaire Answer [...] in a usp (including now)? 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 0 07/16/2024 CAGE Questionnaire Score 0 024 Utilities Answer Date Recorded In the past 12 months has th e [employer], gas, oil, or water company threatened to [...] EDT Office Visit [facility] [address] [place] [address] Rachel Khan PA [address] [place] [address] 02/16/2025 1:20 PM EDT Office Visit [facility] [place] [address], [address] [place] [address] Courtney Torres MD [address] [place] [address] 03/15/2025 3:30 PM EDT Consult [facility] [address] 1[address] [place] [address] Kendy Sanchez APRN [address] [place] [address] 04/17/2025 2:00 PM EDT Office Visit [facility] Medicine Specialties [address] [place] [address] Silverio Tam PA [address] [place] [address] documented as of this encounter [...] documented as of this encounter Care Teams Roads Superintendent Relationship Specialty Start Date End Date Rey Wyatt MD [address] [facility] [address] [place] [address] PCP - General 11/16/24 Angela Oleary, RN [facility] Registered Nurse Cardiology 02/17/24 documented as of this encounter
== END 2025-01-18 23:59 | disposition home or self-care (01) ==
LOC: LAB.DROPOF 01-20 09:59
PROVIDERS: PCP Nurse Practitioner Family; Visit Provider Nurse Practitioner Family
DX: J02.9 Acute pharyngitis, unspecified (principal)
CPT/HCPCS: 87070

== ENCOUNTER 2025-02-01 14:24 | Outpatient (CLI) | payer MEDICAID, SELFPAY ==
--- OUTSIDE RECORDS SUMMARY | 2024-12-07 07:03 | XMS_ITS | Encounter Summary ---
Author Organization [facility] Address [address] [place] [address] Care Team Providers Care Trouble Lineman Name Role Phone Angela Oleary RN Unavailable Unavailable Rey Wyatt MD Primary Care Provider [phone] Reason for Referral * Imaging (Routine) - Closed Specialty Diagnoses / Procedures Referred By Mili joe Referred To Contact Gastroenterology Diagnoses Hematochezia Abdominal pain, epigastric Procedures Patency Capsule Silverio Tam PA [address] [place] [address] Phone: tel: fax: Referral ID Status Reason Start Date Expiration Date V isits Requested Visits Authorized [id number] Closed Specialty Services Required 10/17/2024 04/18/2026 1 1 Reason for Visit * Imaging (Routine) - Closed Specialty Diagnoses / Procedures Referred By Contac t Referred To Contact Gastroenterology Diagnoses Hematochezia Abdominal pain, epigastric Procedures Patency Capsule Silverio Tam PA [address] [place] [address] Phone: tel: fax: Referral ID Status Reason Start Date Expiration Date V isits Requested Visits Authorized [id number] Closed Specialty Services Required 10/17/2024 04/18/2026 1 1 Encounter Details Date Type Department Care Team (Latest Contact Info) Description 12/07/2024 7:03 AM EDT - 12/07/2024 11:59 PM EDT Hospital Encounter [facility] [address] [place] [address] Estuardo Jon MD [address] [place] [address] Diarrhea, unspecified type (Primary Dx); [...] often do you attend chur ch or druze services? Never 02/22/2024 Do you belong to any clubs o r organizations such as catholic groups, unions, fraternal or athletic groups, or [...] Recorded Patient Health Questionnaire-2 Score 0 12/15/2024 [facility] Occupat ional [facility] - Occupational Stress Questionnaire Answer Date [...] place to sleep or slept in a long term (including now)? 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 0 07/16/2024 CAGE Questionnaire Score 0 024 Utilities Answer Date Recorded In the past 12 months has th e [employer] gas, oil, or water [employer] threatened to shut off services in your [...] capsule 1 07/18/2024 Blood Glucose Monitoring Suppl (Chronix BiomedicalTouch Verio Reflect) w/Device kit 04/14/2024 busPIRone (Buspar) [...] mild pain. 30 tablet 1 07/18/2024 Lancets (Chronix BiomedicalTouch Delica Plus [id number]) [facility] 04/14/2024 methIMAzole (Tapazole) 10 MG tablet Take 1 tablet by mouth daily. 60 tablet 11/11/2024 ondansetron (Zofran) 4 MG tablet Take 1 tablet (4 mg) by mouth every 8 (eight) hours if needed for nausea or vomiting. 3 tablet 5 07/18/2024 Chronix BiomedicalTouch Verio test strip 1 each by Other [...] day. 30 tablet 1 07/18/2024 sodium chloride (Park Nasal [place]) 0.65 % nasal spray Administer 1 spray [...] 10:00 AM EDT Office Visit [facility] Endocrinology [address] [place] [address] Rachel Khan, PA [address] [facility] [address] [place] [address] 02/16/2025 1:20 PM EDT Office Visit [facility] [place] [address] [facility], [address] [place] [address] Courtney Torres MD [address] [facility] [address] [place] [address] 03/15/2025 3:30 PM EDT [facility] [address], [address] [place] [address] Kendy Sanchez, MANAGER PRODUCT SUPPORT [address] [place] [address] 04/17/2025 2:00 PM EDT [facility] [address], [address] [place] [address] Silverio Tam PA [address] [place] [address] documented as of this encounter [...] documented as of this encounter Care Teams Trouble Lineman Relationship Specialty Start Date End Date Rey Wyatt MD [address] [facility] [address] [place] [address] PCP - General 11/16/24 Angela Oleary, RN [facility] Registered Nurse Cardiology 02/17/24 documented as of this encounter
--- OUTSIDE RECORDS SUMMARY | 2024-12-15 14:30 | XMS_ITS | Encounter Summary ---
Author Organization [facility] Address [address] [place] [address] Care Team Providers Care Cv Tech Name Role Phone Angela Oleary RN Unavailable Unavailable Rey Wyatt MD Primary Care Provider [phone] Reason for Referral * Consultation (Routine) - Authorized Specialty Diagnoses / Procedures Referred By Mili joe Referred To Contact Diagnoses Abdominal pain, epigastric Diarrhea, unspecified type Postural orthostatic tachycardia syndrome (POTS) Hematochezia Silverio Tam PA [id number] [place] [address] Phone: tel: fax: Referral ID Status Reason Start Date Expiration Date V isits Requested Visits Authorized [id number] Authorized 12/15/2024 06/16/2026 1 1 Reason for Visit * Reason Comments Hematochezia Encounter Details Date Type Department Care Team (Late st Contact Info) Description 12/15/2024 2:30 PM EDT [facility] [address] [place] [address] [facility] [address] [facility] [address] [place] [address] Weight loss (Primary Dx); Abdominal [...] week 02/22/2024 How often do you attend [facility] or synagogue services? Never 02/22/2024 Do you belong to any clubs o r organizations such as hoahaoism groups, unions, fraternal or athletic groups, or [...] Recorded Patient Health Questionnaire-2 Score 0 12/15/2024 [facility] - Occupational Stress Questionnaire Answer Date Recorded [...] a senior care (including now)? 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 0 07/16/2024 CAGE Questionnaire Score 0 024 Utilities Answer Date Recorded In the past 12 months has th e [employer], gas, oil, or water company threatened to [...] disease. She is supposed also be seeing [facility] for her POTs; but may also [...] min Stress: No Stress Concern Present (02/22/2024) [place] [facility] [employer] - Occupational Stress Questionnaire Feeling of Stress : Not at all Social Connections: Moderately Isolated (02/22/2024) Social Connection and Isolation Panel [NHANES] Frequency of Communication with Friends and Family: More than three times a week Frequency of Social Gatherings with Friends and Family: Once a week Attends Pentecostal Services: Never Active Member of Clubs or [...] day before colonoscopy Blood Glucose Monitoring Suppl (Embark Verio Reflect) w/Device kit busPIRone (BUSPAR) 5 [...] mg, Oral, Every 6 hours PRN Lancets (ProtonMailTouch Delica Plus [id number]) misc methIMAzole (TAPAZOLE) 10 mg, Oral, Daily ondansetron (ZOFRAN) 4 mg, Oral, Every 8 hours PRN ondansetron ODT (ZOFRAN-ODT) 4 mg, Oral, Every 8 hours PRN ProtonMailTouch Verio test strip 1 each, As needed [...] tablet 1 tablet, Oral, Daily sodium chloride ([place] Nasal [place]) 0.65 % nasal spray 1 spray, Each [...] 04/26/2002 Influenza, injectable, quadrivalent, preservative free 04/29/2023 ScanSafe COVID-19 Vaccine (Blue Cap) 18+ 02/21/2021 MMR [...] Description 02/10/2025 10:00 AM EDT Office Visit [facility] [address] [place] [id number] Rachel Khan PA [address] [facility] [address] [place] [phone] 02/16/2025 1:20 PM EDT Office Visit [facility] [place] [address], [address] [place] [address] Courtney Torres MD [address] [place] [address] 03/15/2025 3:30 PM EDT Consult [facility] [address] [place] [address] Kendy Sanchez, FINANCIAL PLANNING CONSULTANT [address] [place] [address] 04/17/2025 2:00 PM EDT Office Visit [facility] [address] [place] [address] Silverio Tam PA [address] [place] [address] Scheduled Referrals Name Type Priority [...] Detected Not Detected 12/19/2024 2:26 PM EDT [facility] Blood Venous blood specimen / Unknown Venipuncture / Unknown 12/15/2024 3:29 PM EDT 12/15/2024 3:30 PM EDT Narrative [facility] - 12/19/2024 2:26 PM EDT [...] CELESTE LAB BLOOD ORDERABLES Final Res ult [facility] [address] [place] [address] * T3 (12/15/2024 3:29 PM EDT) T3, Serum 177 87 - 187 ng/dL 12/15/2024 4:54 PM EDT [facility] Blood Venous blood specimen / Unknown Venipuncture / Unknown 12/15/2024 3:29 PM EDT 12/15/2024 3:30 PM EDT us Silverio CELESTE LAB BLOOD ORDERABLES Final Res ult Performing Organization Address City/[facility]/ZIP Co de Phone Number [facility] [address] [place] [address] * (ABNORMAL) CBC and Differential (12/15/2024 3:29 PM EDT) [facility] WBC Count 5.38 3.70 - 10.30 10*3/uL LAB HEMATOLOGY METHOD 12/15/2024 4:38 PM EDT [facility] RBC Count 4.81 3.90 - 5.20 10*6/uL LAB HEMATOLOGY METHOD 12/15/2024 4:38 PM EDT [facility] HGB 12.6 11.2 - 15.7 g/dL LAB HEMATOLOGY METHOD 12/15/2024 4:38 PM EDT [facility] HCT 39.7 34.0 - 45.0 % LAB HEMATOLOGY METHOD 12/15/2024 4:38 PM EDT [facility] Platelet Count 311 155 - 369 10*3/uL LAB HEMATOLOGY METHOD 12/15/2024 4:38 PM EDT [facility] MCV 83 79 - 98 fL LAB HEMATOLOGY METHOD 12/15/2024 4:38 PM EDT [facility] MCH 26.2 26.0 - 32.0 pg LAB HEMATOLOGY METHOD 12/15/2024 4:38 PM EDT [facility] MCHC 31.7 30.7 - 35.5 g/dL LAB HEMATOLOGY METHOD 12/15/2024 4:38 PM EDT [facility] RDW 12.2 11.5 - 14.5 % LAB HEMATOLOGY METHOD 12/15/2024 4:38 PM EDT [facility] MPV 11.2 8.8 - 12.5 fL LAB HEMATOLOGY METHOD 12/15/2024 4:38 PM EDT [facility] nRBC 0.0 <=0.0 per 100 WBCs LAB HEMATOLOGY METHOD 12/15/2024 4:38 PM EDT [facility] Differential Type Automated LAB HEMATOLOGY METHOD 12/15/2024 4:38 PM EDT [facility] Neutrophils % 61 % LAB HEMATOLOGY METHOD 12/15/2024 4:38 PM EDT [facility] Lymphocytes % 32 % LAB HEMATOLOGY METHOD 12/15/2024 4:38 PM EDT [facility] Monocytes % 5 % LAB HEMATOLOGY METHOD 12/15/2024 4:38 PM EDT [facility] Eosinophils % 1 % LAB HEMATOLOGY METHOD 12/15/2024 4:38 PM EDT [facility] Basophils % 1 % LAB HEMATOLOGY METHOD 12/15/2024 4:38 PM EDT [facility] Immature Granulocytes % 0 % LAB HEMATOLOGY METHOD 12/15/2024 4:38 PM EDT [facility] Neutrophils Absolute 3.33 1.60 - 6.10 10*3/uL LAB HEMATOLOGY METHOD 12/15/2024 4:38 PM EDT [facility] Lymphocytes Absolute 1.70 1.20 - 3.90 10*3/uL LAB HEMATOLOGY METHOD 12/15/2024 4:38 PM EDT [facility] Monocytes Absolute 0.25(L) 0.30 - 0.90 10*3/uL LAB HEMATOLOGY METHOD 12/15/2024 4:38 PM EDT [facility] Eosinophils Absolute 0.03 0.00 - 0.50 10*3/uL LAB HEMATOLOGY METHOD 12/15/2024 4:38 PM EDT [facility] Basophils Absolute 0.05 0.00 - 0.10 10*3/uL LAB HEMATOLOGY METHOD 12/15/2024 4:38 PM EDT [facility] Immature Granulocytes Absolute 0.02 0.00 - 0.06 10*3/uL LAB HEMATOLOGY METHOD 12/15/2024 4:38 PM EDT [facility] Blood Venous blood specimen / Unknown Venipuncture / Unknown 12/15/2024 3:29 PM EDT 12/15/2024 3:30 PM EDT Narrative [facility] - 12/15/2024 4:38 PM EDT Therapeutic decision making should be based on absolute values, rather than percentages. us Silverio [facility] LAB BLOOD ORDERABLES Final Res ult [facility] [address] [place] [address] * (ABNORMAL) Comprehensive Metabolic Panel, Plasma (12/15/2024 3:29 PM EDT) Glucose, Plasma 84 74 - 99 mg/dL 12/15/2024 4:54 PM EDT [facility] BUN, Plasma 8 7 - 21 mg/dL 12/15/2024 4:54 PM EDT [facility] Creatinine, Plasma 0.60 0.60 - 1.10 mg/dL 12/15/2024 4:54 PM EDT [facility] BUN/Creatinine Ratio 13 12/15/2024 4:54 PM EDT [facility] Sodium, Plasma 140 136 - 145 mmol/L 12/15/2024 4:54 PM EDT [facility] Potassium, Plasma 4.1 3.6 - 4.9 mmol/L 12/15/2024 4:54 PM EDT [facility] Chloride, Plasma 105 97 - 107 mmol/L 12/15/2024 4:54 PM EDT [facility] CO2, Plasma 21(L) 22 - 29 mmol/L 12/15/2024 4:54 PM EDT [facility] Anion Gap 14 6 - 16 mmol/L 12/15/2024 4:54 PM EDT [facility] Total Calcium, Plasma 9.4 8.9 - 10.2 mg/dL 12/15/2024 4:54 PM EDT [facility] Total Protein 8.1(H) 6.3 - 7.9 g/dL 12/15/2024 4:54 PM EDT [facility] Albumin, Plasma 4.6 3.5 - 5.2 g/dL 12/15/2024 4:54 PM EDT [facility] AST, Plasma 16 10 - 35 U/L 12/15/2024 4:54 PM EDT [facility] ALT, Plasma 23 10 - 35 U/L 12/15/2024 4:54 PM EDT [facility] Alkaline Phosphatase, Plasma 58 35 - 104 U/L 12/15/2024 4:54 PM EDT [facility] Total Bilirubin, Plasma 0.7 0.2 - 1.1 mg/dL 12/15/2024 4:54 PM EDT [facility] eGFRcr 127.1 mL/min/1.7 3m*2 12/15/2024 4:54 PM EDT [facility] Comment:Reported eGFRcr in m L/min/1.73m2 is based the CKD-EPI 2020 equation that does not use a race coefficient. Blood Venous blood specimen / Unknown Venipuncture / Unknown 12/15/2024 3:29 PM EDT 12/15/2024 3:30 PM EDT us Silverio [facility] LAB BLOOD ORDERABLES Final Res ult [facility] [address] [place] [address] * Prothrombin Time/INR (12/15/2024 3:29 PM EDT) Prothrombin Time 13.7 12.0 - 14.3 sec LAB COAGULATION METHOD 12/15/2024 5:05 PM EDT [facility] INR 1.0 0.9 - 1.1 LAB COAGULATION METHOD 12/15/2024 5:05 PM EDT [facility] Blood Venous blood specimen / Unknown Venipuncture / Unknown 12/15/2024 3:29 PM EDT 12/15/2024 3:30 PM EDT Narrative [facility] - 12/15/2024 5:05 PM EDT OPTIMAL INR RANGES FOR PATIENT ON ORAL ANTICOAGULANT THERAPY Prevention of venous thromboembolism INR 2.0 to 3.0 In patients with heart disease: Atrial fibrillation INR 2.0 to 3.0 Valvular heart disease INR 2.0 to 3.0 Tissue heart valves INR 2.0 to 3.0 Mechanical prosthetic valves INR 2.5 to 3.5 Prevention of recurrent UT INR 2.5 to 3.5 [facility] LAB BLOOD ORDERABLES Final Res ult [facility] [address] [place] [address] * (ABNORMAL) Brayan Henson IgG Ab (12/15/2024 3:29 PM EDT) EBV ANTIBODY TO VIRAL CAPSID ANTIGEN IGG 185.0(H) 0.0 - 21.9 U/mL 12/18/2024 11:11 AM EDT [facility] ([employer]) Blood Venous blood specimen / Unknown Venipuncture / Unknown 12/15/2024 3:29 PM EDT 12/15/2024 3:30 PM EDT Narrative [email or web address]) - 12/18/2024 11:11 AM EDT INTERPRETIVE INFORMATION: Brayan-Henson Virus Antibody to Viral Capsid Antigen, IgG 17.9 U/mL or less.......Not Detected 18.0-21.9 U/mL..........Indeterminate - Repeat testing in 10-14 days may be helpful. 22.0 U/mL or greater....Detected Performed By: [facility] [address] [place] [address] Ep Tech: Wilber Pardo MD, PhD CLIA Number: [id number] Silver[facility] BLOOD ORDERABLES Final Res ult [facility] [employer]) [address] [place] [address] * Brayan-Henson virus VCA, IgM (12/15/2024 3:29 PM EDT) EBV ANTIBODY TO VIRAL CAPSID ANTIGEN IGM <10.0 0.0 - 43.9 U/mL 12/18/2024 11:09 AM EDT [employer] [facility] ([employer]) Blood Venous blood specimen / Unknown Venipuncture / Unknown 12/15/2024 3:29 PM EDT 12/15/2024 3:30 PM EDT Narrative [facility] - 12/18/2024 11:09 AM EDT INTERPRETIVE INFORMATION: Brayan-Henson Virus Antibody to Viral Capsid Antigen, IgM 35.9 U/mL or less.......Not Detected 36.0-43.9 U/mL..........Indeterminate - Repeat testing in 10-14 days may be helpful. 44.0 U/mL or greater....Detected Performed By: [facility] [address] [place] [address] Ep Tech: Wilber Pardo MD, PhD CLIA Number: [id number] us Silverio [facility] LAB BLOOD ORDERABLES Final Res ult [facility] [address] [place] [address] documented in this encounter Visit Diagnoses Diagnosis [...] documented as of this encounter Care Teams Cv Tech Relationship Specialty [place] [address] [place] [address] [place] [address] PCP - General 11/16/24 Angela Oleary, RN [id number] Registered Nurse Cardiology 02/17/24 documented as of this encounter
--- OUTSIDE RECORDS SUMMARY | 2025-01-17 06:36 | XMS_ITS | Encounter Summary ---
Author Organization [facility] Address [address] [place] [address] Care Team Providers Care Wad Lubricator Name Role Phone Angela Oleary RN Unavailable Unavailable Rey Wyatt MD Primary Care Provider [phone] Reason for Referral * Imaging (Routine) - Closed Specialty Diagnoses / Procedures Referred By Mili joe Referred To Contact Gastroenterology Diagnoses Abdominal pain, epigastric Diarrhea, unspecified type Weight loss Hematochezia Procedures Capsule Endoscopy Silverio Tam PA [address] [address] Phone: tel: fax: Referral ID Status Reason Start Date Expiration Date V isits Requested Visits Authorized [id number] Closed Specialty Services Required 12/28/2024 06/29/2026 1 1 Reason for Visit * Imaging (Routine) - Closed Specialty Diagnoses / Procedures Referred By Mili joe Referred To Contact Gastroenterology Diagnoses Abdominal pain, epigastric Diarrhea, unspecified type Weight loss Hematochezia Procedures Capsule Endoscopy Silverio Tam PA [address] [facility] [address] [place] [address] Phone: tel: fax: Referral ID Status Reason Start Date Expiration Date V isits Requested Visits Authorized [id number] Closed Specialty Services Required 12/28/2024 06/29/2026 1 1 Encounter Details Date Type Department Care Team (Latest Contact Info) Description 01/17/2025 6:36 AM EDT - 01/17/2025 11:59 PM EDT Hospital Encounter PAV S Endoscopy [address] [place] [address] Cody Barnett MD [address] [place] [address] Abdominal pain, epigastric; Diarrhea, unspecified type; Weight loss; Hematochezia Discharge Disposition: Home or Self Care Social [...] often do you attend chur ch or baptism services? Never 02/22/2024 Do you belong to [...] in a detention (including now)? No 02/09/2024 [place] Depression Scale Answer Date Recorded [place] Depression Scale Total 6 08/08/2024 The [...] drink first t casi in the morning (EYE-OUTDOOR RECREATION SPECIALIST) to steady your nerves or to get rid of a hangover? 0 07/16/2024 CAGE Questionnaire Score 0 024 Utilities Answer Date Recorded In the past 12 months has th e e27, gas, oil, or water [employer] threatened to shut off services in your home? No 02/09/2024 Comments No Sex and Gender Information Value Date Recorded Sex Assigned at Not on file Legal Sex Female 7:36 PM EDT Gender Identity Not on file Sexual Orientation Not on file documented as of this encounter Last Filed Vital Signs Vital Sign Reading Time Taken Comments Blood Pressure 105/64 01/17/2025 7:00 AM EDT Pulse 91 01/17/2025 7:00 AM EDT Temperature 37.1 C (98.7 F) 01/17/2025 7:00 AM EDT Respiratory Rate 18 01/17/2025 7:00 AM EDT Oxygen Saturation 99% 01/17/2025 7:00 AM EDT Inhaled Oxygen Concentration - - Weight - - Height - - Body Mass Index - - documented in this encounter Medications at Time of Discharge acetaminophen (Tylenol) 325 MG capsule Take 2 capsules (650 mg) by mouth every 6 (six) hours if needed for mild pain. 30 capsule 1 07/18/2024 Blood Glucose Monitoring Suppl (OneTouch Verio Reflect) w/Device kit 04/14/2024 cefdinir (Omnicef) 300 MG capsule take one capsule by mouth every twelve hours for 10 days 12/08/2024 cholecalciferol (Vitamin D-3) 50 MCG (1999 UT) capsule 10/25/2024 famotidine (Pepcid) 20 MG tablet Take 1 tablet (20 mg) by mouth 2 (two) times a day. 60 tablet 11 08/16/2024 fluticasone (Flonase) 50 MCG/ACT nasal spray Administer 1 spray into each nostril daily. 12/08/2024 ibuprofen 600 MG tablet Take 1 tablet (600 mg) by mouth every 6 (six) hours if needed for mild pain. 30 tablet 1 07/18/2024 Lancets (SomnoMed Delica Plus [id number]) [facility] 04/14/2024 ondansetron (Zofran) 4 MG tablet Take 1 tablet (4 mg) by mouth every 8 (eight) hours if needed for nausea or vomiting. 3 tablet 5 07/18/2024 ondansetron ODT (Zofran-ODT) 4 MG disintegrating tablet Dissolve 2 tablets on the tongue every 8 hours as needed for nausea or vomiting. 20 tablet 5 12/30/2024 TranscribeMe test strip 1 each by Other route if needed. 04/14/2024 potassium & sodium phosphates (Phos-NaK) 280-160-250 MG packet Take 1 packet by mouth 1 (one) time each day. 30 packet 1 03/16/2024 Vit-Fe Fumarate-FA ( Vitamins) 28-0.8 MG tablet Take 1 tablet by mouth 1 (one) time each day. 30 tablet 11 03/17/2024 propranolol (Inderal) 20 MG tabletIndications:P helen's disease Take 1 tablet by mouth 3 (three) times a day. 90 tablet 3 11/16/2024 senna-docusate (Codi-Colace) 8.6-50 MG tablet Take 1 tablet by mouth 1 (one) time each day. 30 tablet 1 07/18/2024 sodium chloride ([place] Nasal [place]) 0.65 % nasal spray Administer 1 spray into each nostril if needed for congestion. 30 mL 12 04/12/2024 Ventolin HFA 108 (90 Base) MCG/ACT inhaler 10/05/2024 documented as of this encounter Miscellaneous Notes * H&P - Angel Farmer MD - 01/17/2025 7:00 AM EDT Gastroenterology, Hepatology and Nutrition Pre-Endoscopy History & Physical Patient: Francy Delarosa Date of : 2000 Attending: No att. providers found Date of Visit: January 17, 2025 SUBJECTIVE: History of Present Illness: Ms. Francy Delarosa is a 24 y.o. female here today for Capsule Endoscopy. She has a past medical history of Abnormal ECG, Anemia, Anxiety, Eczema, Food intolerance, GERD (gastroesophageal reflux disease), Gilbert syndrome (2019), Hypertension, Hyperthyroidism, Liver disease, Peptic ulceration, POTS (postural orthostatic tachycardia syndrome) (01/2024), Syncope, and Urinary tract infection. She has no past medical history of Adverse effect of anesthesia or Malignant hyperthermia. Ms. Francy Delarosa is NPO. Here for eval abd pain, GI bleeding ROS: Negative except as per HPI Allergies[1] Current Outpatient Medications Medication Instructions Blood Glucose Monitoring Suppl (eToroTouch Verio Reflect) w/Device kit busPIRone (BUSPAR) 5 [...] mg, Oral, Every 6 hours PRN Lancets (eToroTouch Delica Plus [id number]) misc methIMAzole (TAPAZOLE) 10 mg, Oral, Daily ondansetron (ZOFRAN) 4 mg, Oral, Every 8 hours PRN ondansetron ODT (ZOFRAN-ODT) 8 mg, Oral, Every 8 hours PRN eToroTouch Verio test strip 1 each, As needed potassium & sodium phosphates (Phos-NaK) 280-160-250 MG packet 1 packet, Oral, Daily Vit-Fe Fumarate-FA ( Vitamins) 28-0.8 MG tablet 1 tablet, Oral, Daily propranolol (INDERAL) 20 mg, Oral, 3 times daily senna-docusate (Codi-Colace) 8.6-50 MG tablet 1 tablet, Oral, Daily sodium chloride ([place] Nasal [place]) 0.65 % nasal spray 1 spray, Each Nostril, As needed Tylenol 650 mg, Oral, Every 6 hours PRN Ventolin HFA 108 (90 Base) MCG/ACT inhaler Past Medical History[2] Surgical History[3] Family History[4] Social History[5] OBJECTIVE: Physical Exam: General Appearance: Patient in no distress. Alert, awake and oriented x 3 Eyes: Anicteric, EOMI Neck: Neck supple Lungs: non labored Heart: warm and well perfused Abdomen: Abdomen flat Laboratory/Imaging/Pathology: No results for input(s): HGB , PLT , APTT , INR , PTT , BILITOT , BILIDIR in the last 72 hours. ASSESSMENT & PLAN: Ms. Francy Delarosa is a 24 y.o. female here today for Capsule Endoscopy. She has a past medical history of Abnormal ECG, Anemia, Anxiety, Eczema, Food intolerance, GERD (gastroesophageal reflux disease), Gilbert syndrome (2019), Hypertension, Hyperthyroidism, Liver disease, Peptic ulceration, POTS (postural orthostatic tachycardia syndrome) (01/2024), Syncope, and Urinary tract infection. She has no past medical history of Adverse effect of anesthesia or Malignant hyperthermia. 1) Abdominal pain 2) GI bleeding PLAN: - Continue NPO - PIV - Obtain consent - Proceed with plans for Capsule Endoscopy Angel Farmer MD [1] Allergies Allergen Reactions Amoxicillin-Pot Clavulanate Other - please document in the comment field, Rash and Swelling Cinnamon Other - please document in the comment field Penicillin G Swelling Betamethasone Dipropionate (Augmented) [Betamethasone] Other - please document in the comment field Patient states she has not had a reaction to this. Penicillins Other - please document in the comment field [2] Past Medical History: Diagnosis Date Abnormal ECG Anemia Anxiety Eczema Food intolerance GERD (gastroesophageal reflux disease) Gilbert syndrome 2019 Hypertension Hyperthyroidism auto immune Liver disease Peptic ulceration POTS (postural orthostatic tachycardia syndrome) 01/2024 Syncope Urinary tract infection [3] Past Surgical History: Procedure Laterality Date CHOLECYSTECTOMY 07/2023 DILATION AND CURETTAGE OF UTERUS HAND SURGERY 07/2022 TONSILLECTOMY 2002 [4] Family History Problem Relation Name Age [...] Crohn's disease Brother Tristan fagan 20 - Immunodeficiency Brother Tristan fagan Cancer Maternal Grandmother Melania sheridan Asthma Child Thyroid disease Mother's Sister Ashanti - Liver disease Brother Scott - Anesthesia problems Neg Hx Malig Hyperthermia Neg Hx [5] Social History Socioeconomic History Marital status: Spouse name: Scar Ramirez Number of children: 2 Tobacco Use Smoking status: Former Current packs/day: 0.00 Types: Cigarettes Quit date: 2021 Years since quittin.4 Smokeless tobacco: Former Tobacco comments: History of vaping after cigarettes. Stopped when she found out she was Vaping Use Vaping status: Never Used Substance and Sexual Activity Alcohol use: Never Drug use: Never Sexual activity: Yes Partners: Male control/protection: None, I.U.D. Comment: Im Social Drivers of Health Financial Resource Strain: [...] min Stress: No Stress Concern Present (02/22/2024) [place] of Occupational Health - Occupational Stress Questionnaire Feeling of Stress : Not at all Social Connections: Moderately Isolated (02/22/2024) Social Connection and Isolation Panel Frequency of Communication with Friends and Family: More than three times a week Frequency of Social Gatherings with Friends and Family: Once a week Attends Zoroastrianism Services: Never Active Member of Clubs or [...] Unstable Housing in the Last Year: No Cosigned by Cody Barnett MD at 01/17/2025 5:13 PM EDT documented in this encounter Plan of Treatment Upcoming Encounters Date Type Department Care Team (Late st Contact Info) Description 02/10/2025 10:00 AM EDT Office Visit [facility] [address] [place] [address] Rachel Khan PA [address] [facility] [address] [place] [address] 02/16/2025 1:20 PM EDT Office Visit [facility] [place] [address] [facility], [address] [place] [address] Courtney Torres MD [address] [facility] [address] [place] [address] 03/15/2025 3:30 PM EDT Consult [facility] [address], [address] [place] [address] Kendy Sanchez APRN [address] [place] [address] 04/17/2025 2:00 PM EDT Office Visit [facility] Medicine Specialties [address], [address] [place] [address] Silverio Tam PA [address] [place] [address] documented as of this encounter Goals Goal Patient Goal Type Associated Problems Recent Progress Patient-Stated? Author Delayed Delivery Care Plan CPM S22 PP LABOR (OBSTETRICS) No Open Scheduling, Background documented as of this encounter Procedures Procedure Name Priority Date/Time Associated Diagnosis Comments CAPSULE ENDOSCOPY Routine 01/19/2025 3:1 7 PM EDT Abdominal pain, epigastric Diarrhea, unspecified type Weight loss Hematochezia documented in this encounter Results * Capsule Endoscopy (01/19/2025 3:17 PM EDT) Anatomical Region Laterality Modality Endoscopy Narrative 01/19/2025 3:17 PM EDT Procedure: Wireless capsule endoscopy Indication: diarrhea and abdominal pain in patient with recent thyrotoxicosis Provider: Lidia Jones MD Referring MD Silverio Tam Medications: none Complications: No immediate complications Procedure: After informed consent was obtained, the patient was given the capsule enteroscope, which was swallowed. Findings: Images of the esophagus, stomach and small bowel were obtained from the swallowed capsule and reviewed. The first gastric image was captured 00:02:12 The first duodenal image was captured 00:21:32 The first cecal image was captured 02:19:24 Findings: normal Impression: normal capsule endoscopy with relatively rapid transit through the small bowel Recommendation: Follow up with referring provider. Attending participation: I personally reviewed all of the images and this is my reading. us Silverio [facility] GI PROCEDURE ORDERABLES Final Result documented in this encounter Visit Diagnoses Diagnosis Abdominal pain, epigastric Diarrhea, unspecified type Weight loss Loss of [...] documented as of this encounter Care Teams Wad Lubricator Relationship Specialty Start Date End Date Rey Wyatt MD [address] [place] [address] PCP - General 11/16/24 Angela Oleary, RN [facility] Registered Nurse Cardiology 02/17/24 documented as of this encounter
[2025-02-01 17:32] LABS: Hematocrit 39.9 % (37.0-47.0); Hemoglobin 12.5 g/dL (12.2-16.2); Immature Granulocytes % 0 %; Mean Corpuscular HGB Conc 31.3 g/dL (31.8-35.4); Mean Corpuscular Hemoglobin 25.8 pg (27.0-31.2); Mean Corpuscular Volume 82.4 fl (81-99); Nucleated Red Blood Cells % 0 %; Platelet Count 185 K/mm3 (142-424); Red Blood Count 4.84 M/mm3 (4.20-5.40); Red Cell Distribution Width-SD 42.5 fL; White Blood Count 5.4 K/mm3 (4.8-10.8)
[2025-02-01 17:52] LABS: Albumin Level 4.6 g/dl (3.5-5.0)
[2025-02-01 17:53] LABS: Chloride 103 mmol/L (98-107); Potassium 4.6 mmoL/L (3.5-5.1); Sodium 140 mmol/L (136-145)
[2025-02-01 17:55] LABS: Alanine Aminotransferase 12 U/L (12-78); Amylase 83 U/L (30-110); Anion Gap 15.6 mEq/L (5-15); Aspartate Amino Transferase 19 U/L (14-36); Blood Urea Nitrogen 13 mg/dl (7-17); Carbon Dioxide 26 mmol/L (22.0-30.0); Creatinine,Serum 0.90 mg/dl (0.52-1.04); Estimated Glomerular Filt Rate 76 ml/min (>60); GFR (African American) 92 ML/MIN (>60)
[2025-02-01 17:56] LABS: Albumin/Globulin Ratio 1.5 (1.1-1.8); Alkaline Phosphatase 57 U/L (38-126); Bilirubin,Total 1.1 mg/dl (0.2-1.3); Globulin 3.1 g/dL (1.3-3.2); Lipase 186 U/L (23-300); Magnesium 1.9 mg/dl (1.6-2.3); Total Protein,Serum 7.7 g/dl (6.3-8.2)
[2025-02-01 17:58] LABS: Calcium 9.6 mg/dl (8.4-10.2); Glucose 67 mg/dl (74-100)
[2025-02-01 18:16] LABS: Free T4 (Free Thyroxine) 0.62 ng/dl (0.78-2.19)
[2025-02-01 18:27] LABS: Thyroid Stimulating Hormone 10.20 uIU/mL (0.465-4.68)
[2025-02-01 18:48] LABS: Hepatitis C Ab Qual. W/ RFX NEGATIVE (Negative)
[2025-02-01 19:19] LABS: Hemoglobin A1C 5.5 % (4.0-6.0)
[2025-02-01 19:55] LABS: Vitamin B12 369 pg/mL (239-931)
--- OUTSIDE RECORDS SUMMARY | 2025-02-02 13:40 | XMS_ITS | Encounter Summary ---
Author Organization Healthcare Address [address] [place] [id number] Care Team Providers Care Upper [place] Name Role Phone Molly Louis MD Primary Care Provider [phone] Angela Oleary RN Unavailable Unavailable Rey Wyatt MD Primary Care Provider [phone] Reason for Visit * Reason Onset Date Comments Med Refill 03/03/2024 Encounter Details Date Type Department Care Team (Late st Contact Info) Description 03/03/2024 Refill [facility] [address] [place] [address] Paris Marion MD [address] [place] [address] Social History Tobacco Use Types Packs/Day Years [...] Recorded Patient Health Questionnaire-2 Score 0 02/17/2024 [facility] - Occupational Stress Questionnaire Answer Date [...] in a fpc (including now)? No 02/09/2024 [place] Depression Scale Answer Date Recorded [place] Depression Scale Total 8 02/22/2024 The thought [...] Description 02/10/2025 10:00 AM EDT Office Visit [facility] Endocrinology [address] [place] [address] Rachel Khan, PA [address] [place] [address] 02/16/2025 1:20 PM EDT Office Visit [facility] [place] [address], [address] [place] [address] Courtney Torres MD [address] [place] [address] 03/15/2025 3:30 PM EDT Consult [facility] [address] [place] [address] Kendy Sanchez APRN [address] [place] [address] 04/17/2025 2:00 PM EDT Office Visit [facility] Medicine Specialties [address] [place] [address] Silverio Tam PA [address] [place] [address] documented as of this encounter [...] documented as of this encounter Care Teams [place] Relationship Specialty Start Date End Date Molly Louis MD [address] [place] [address] PCP - General Family Medicine 02/09/24 11/15/24 [place] [address] [place] [address] [place] [address] PCP - General 11/16/24 Angela Oleary, RN [facility] Registered Nurse Cardiology 02/17/24 documented as of this encounter
--- OUTSIDE RECORDS SUMMARY | 2025-02-02 13:40 | XMS_ITS | Clinical Summary ---
Author Organization [facility] Address [address] [place] [address] Care Team Providers Care Oil Recovery Operator Name Role Phone Angela Oleary RN Unavailable Unavailable Rey Wyatt MD Primary Care Provider [phone] Allergies Active Allergy Reactions Criticality Noted Date [...] Patient not taking.Reported on 01/17/2025 sodium chloride (Hondo Nasal [place]) 0.65 % nasal spray Administer 1 spray into each nostril if needed for congestion. 30 mL 12 024 Active Additional Information Patient not taking.Reported on 01/17/2025 Blood Glucose Monitoring Suppl (OneTouch Verio Reflect) w/Device kit Active OneTouch Verio test strip 1 each by Other route if needed. Active Lancets (OneTouch Delica Plus Glpohk07O) [facility] Active ibuprofen 600 MG tablet Take 1 [...] nausea or vomiting. 20 tablet 5 Active bisacodyl (Bisacodyl EC) 5 MG EC tablet [...] Palpitations 08/17/2024 [facility]2024 POTS (postural orthostatic tachycardia syndrome) [...] Department Care Team Description 01/18/2025 Results Follow-Up [facility] Endocrinology [address] [place] [address] Abundio Kyle 01/17/2025 6:36 AM EDT - 01/17/2025 11:59 PM EDT Hospital Encounter [facility] [address] [place] [address] Cody Barnett MD Abdominal pain, epigastric; Diarrhea, unspecified type; Weight loss; Hematochezia Discharge Disposition: Home or Self Care 01/17/2025 Travel 12/30/2024 Orders Only [facility] Medicine Specialties [address], [address] [place] [address] Silverio Tam PA 12/28/2024 Orders Only [facility] Medicine Specialties [address], [address] [place] [address] Silverio Tam, PA Abdominal pain, epigastric (Primary Dx); Diarrhea, unspecified type; Weight loss; Hematochezia 12/28/2024 Results Follow-Up [facility] Medicine Specialties [address], [address] [place] [address] Estuardo Jon MD 12/28/2024 Orders Only [facility] Medicine Specialties [address], [address] [place] [address] Keya Minor RN Diarrhea, unspecified type 12/20/2024 Results Follow-Up [facility] Medicine Specialties [address], [address] [place] [address] Silverio Tam PA 12/16/2024 Results Follow-Up [facility] Endocrinology [address] [place] [address] Holli Kylelenin 12/15/2024 2:30 PM EDT Office Visit [facility] Medicine Specialties [address], [address] [place] [address] Silverio Tam PA Weight loss (Primary Dx); Abdominal pain, epigastric; Diarrhea, unspecified type; Postural orthostatic tachycardia syndrome (POTS); Hematochezia; Elevated fecal calprotectin; Urticaria; History of anesthesia reaction; Gastroesophageal reflux disease, unspecified whether esophagitis present; Gilbert's syndrome; Nausea and vomiting, unspecified vomiting type; BMI 23.0-23.9, adult 12/15/2024 Travel 12/09/2024 Orders Only [facility] Medicine Specialties [address], [address] [place] [address] Silverio Tam PA 12/08/2024 Travel 12/07/2024 7:03 AM EDT - 12/07/2024 11:59 PM EDT Hospital Encounter [facility] [address] 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 Travel 11/16/2024 Telephone [place] [facility] [address] [place] [address] YamelsaidaKendy wintersTRISTAN 11/14/2024 Orders Only [facility] Endocrinology [address] [place] [address] Anabella Hugodoris Thyrotoxicosis with Tricia thyroiditis (Primary Dx) 11/13/2024 Travel 11/11/2024 8:40 AM EDT Office Visit [facility] Endocrinology [address] [place] [address] (1), Roland Wooten Fellow Anabella Hugodoris Thyrotoxicosis with Tricia thyroiditis (Primary Dx); Hyperthyroidism 11/11/2024 Travel from Last 3 Months Immunizations Immunization Administration Dates Next Due DTaP, Unspecified 04/26/2002 HPV, Quadrivalent 05/29/2011 Hep A, ped/adol, 2 dose 11/21/2010,02/20/2010 IPV 04/26/2002 Influenza, injectable, quadr ivalent, preservative free 04/29/2023 MMR 07/18/2024(Deferred: Patient Refused),04/26/2002 Tdap 02/20/2010 Varicella 07/06/2001 Family History Medical History Relation Name Comments Autoimmune disease Brother 1 Tristan fagan Crohn's disease Brother 1 Tristanalyssa fagan Immunodeficiency Brother 1 Tristan fagan Liver [...] Hx Relation Name Status Comments Brother 1 Tristanalyssa ganft Brother 2 Scott Alive Child Alive Father [...] often do you attend chur ch or samaritan services? Never 02/22/2024 Do you belong to [...] Recorded Patient Health Questionnaire-2 Score 0 12/15/2024 [facility] of Occupat ional Health - Occupational Stress [...] a skilled nursing (including now)? No 02/09/2024 [place] Depression Scale Answer Date Recorded [place] Depression Scale Total 6 08/08/2024 The thought of harming myself has occurred to me . Never 08/08/2024 PHQ-9 Answer Date Recorded Patient Health Questionnaire-9 Score 2 12/15/2024 CAGE ASSESSMENT Answer Date Recorded Cage unable to access Not on file 07/16/2024 Cage max number of drinks Not on file 12/21/ 2024 Cage Beverages a week Not on file 07/16/2024 Have you ever felt you should CUT down on your d rinking? 0 07/16/2024 Have you been ANNOYED by people criticizing your drinking? 0 07/16/2024 Have you felt GUILTY about your drinking? 0 07/16/2024 Have you had a drink first t casi in the morning (EYE-BATH MIXER) to steady your nerves or to get rid of a hangover? 0 07/16/2024 CAGE Questionnaire Score 0 024 Utilities Answer Date Recorded In the past 12 months has e [employer], gas, oil, or water [employer] threatened to shut off services in [...] AM EDT Office Visit [facility] [address] [place] [address] Rachel Khan PA [address] [facility] [address] [place] [address] 02/16/2025 1:20 PM EDT Office Visit [facility] [place] [address] [facility], [address] [place] [address] Courtney Torres MD [address] [facility] [address] [place] [address] 03/15/2025 3:30 PM EDT Consult [facility] [address], [address] [place] [address] Kendy Sanchez, WARP KNITTER [address] [place] [address] 04/17/2025 2:00 PM EDT Office Visit [facility] Medicine Specialties [address], [address] [place] [address] Silverio Tam PA [address] [place] [address] Health Maintenance Due Date Last [...] - Td or Tdap) 02/21/2020 02/20/2010, 04/26/2002 [id number] Vaccine (2 - season) 2024 02/21/2021 [facility]- SDOH Screenings 08/11/2024 [facility]-Adult SDOH Screenings 08/11/2024 02/09/2024 [facility]-Influenza Vaccine (#1) 2025 04/29/2023 [facility]-Depression Screening 12/15/2025 025, 12/15/2024, [...] - 4.3 pg/mL 01/18/2025 11:56 PM EDT [employer] (ThoughtBuzzSHAWN) Blood Venous blood specimen / Unknown Venipuncture / Unknown 01/17/2025 8:47 AM EDT 01/17/2025 8:47 AM EDT Narrative [facility] Blossom ([place]) - 01/18/2025 11:56 PM EDT REFERENCE INTERVAL: Triiodothyronine, Free (Free T3) Access complete set of age- and/or gender-specific reference intervals for this test in the [employer] Test Directory ([employer]). Performed By: [employer] [address] [id number] Substation Maintenance Technician: Wilber Pardo MD, PhD CLIA Number: [id number] us Saskia Garcia MD LAB BLOOD ORDERABLES Final Resul t [facility] [employer]) [address] [place] [address] * Thyroid Stimulating Hormone Receptor Antibody (01/17/2025 8:47 AM EDT) TSH Receptor Antibody <1.10 <=1.75 IU/L 01/19/2025 1:20 AM EDT RONAK JoyhoundSANFORD) Serum Venous blood specimen / Unknown 01/17/2025 8:47 AM EDT 01/17/2025 8:47 AM EDT Patti NUNEZ) - 01/19/2025 1:20 AM EDT Performed By: [employer] [address] [place] [address] Substation Maintenance Technician: Wilber Pardo MD, PhD CLIA Number: [id number] Saskia Garcia MD LAB BLOOD ORDERABLES Final Resul t Performing Organization Address [facility] de Phone Number Red [facility]) [address] [place] [address] * Thyroid stimulating immunoglobulin (01/17/2025 8:47 AM EDT) TSI Result 0.11 <=0.54 IU/L 01/19/2025 12:49 AM EDT RONAK DAVIDSON [employer] Corporation[employer]ANFORD) Serum Venous blood specimen / Unknown 01/17/2025 8:47 AM EDT 01/17/2025 8:47 AM EDT Patti NUNEZ) - 01/19/2025 12:49 AM EDT INTERPRETIVE INFORMATION: [...] medical history, and other findings. Performed By: [employer] [address] [place] [address] Substation Maintenance Technician: Wilber aPrdo MD, PhD CLIA Number: [id number] Saskia Garcia MD LAB BLOOD ORDERABLES Final Resul t Performing Organization Address City/[facility]/ZIP Co de Phone Number Tame) [facility] [place] [address] * TSH (01/17/2025 8:47 AM EDT) Only the most recent of4 resultswithin the time period is included. Thyroid Stimulating Hormone, Plasma 1.83 0.40 - 4.20 uIU/mL 01/17/2025 11:38 AM EDT [facility] Blood Venous blood specimen / Unknown Venipuncture / Unknown 01/17/2025 8:47 AM EDT 01/17/2025 8:47 AM EDT Narrative [facility] - 01/17/2025 11:38 AM EDT Trimester Specific Ranges TSH ( IU/mL) 1st Trimester 0.1 - 3.0 2nd Trimester 0.19 - 4.06 3rd Trimester 0.3 - 3.7 us Roland Wooten MD LAB BLOOD ORDERABLES Final Resu lt Performing Organization Address [facility] Phone Number [facility] [address] [place] [address] * T4, free (01/17/2025 8:47 AM EDT) Only the most recent of4 resultswithin the time period is included. Free T4, Plasma 0.8 0.8 - 1.7 ng/dL 01/17/2025 11:38 AM EDT [facility] Blood Venous blood specimen / Unknown Venipuncture / Unknown 01/17/2025 8:47 AM EDT 01/17/2025 8:47 AM EDT Narrative [facility] - 01/17/2025 11:38 AM EDT Free T4 Trimester Specific Ranges 1st Trimester 0.9 - 1.50 ng/dL 2nd Trimester 0.7 - 1.40 ng/dL 3rd Trimester 0.7 - 1.24 ng/dL us Roland Wooten MD LAB BLOOD ORDERABLES Final Resu lt Performing Organization Address City/[facility] Co de Phone Number [facility] [address] [place] [address] * XR Abdomen 1 View (12/28/2024 9:40 AM EDT) Anatomical Region Laterality Modality Body Digital Radiogra phy Estuardo Jon MD IMG XR PROCEDURES Final Result * Cytomegalovirus (CMV) Quantitative PCR (12/15/2024 3:29 PM EDT) Pathologist [facility] Cytomegalovirus (CMV) Quantitative Interpretation Not Detected Not Detected 12/19/2024 2:26 PM EDT [facility] Blood Venous blood specimen / Unknown Venipuncture / Unknown 12/15/2024 3:29 PM EDT 12/15/2024 3:30 PM EDT Narrative [facility] - 12/19/2024 2:26 PM EDT [employer] M2000 CMV test is a Real Time [...] Res ult Performing Organization Address [facility]/[place] [address] * T3 (12/15/2024 3:29 PM EDT) Only the most recent of2 resultswithin the time period is included. Pathologist [facility] T3, Serum 177 87 - 187 ng/dL 12/15/2024 4:54 PM EDT [facility] Blood Venous blood specimen / Unknown Venipuncture / Unknown 12/15/2024 3:29 PM EDT 12/15/2024 3:30 PM EDT [employer] [facility] LAB BLOOD ORDERABLES Final Res ult Performing Organization Address City/[facility]/ZIP Co de Phone Number [facility] [address] [place] [address] * Brayan-Holguin virus VCA, IgM (12/15/2024 3:29 PM EDT) EBV ANTIBODY TO VIRAL CAPSID ANTIGEN IGM <10.0 0.0 - 43.9 U/mL 12/18/2024 11:09 AM EDT Tame) Blood Venous blood specimen / Unknown Venipuncture / Unknown 12/15/2024 3:29 PM EDT 12/15/2024 3:30 PM EDT Narrative Tame) - 12/18/2024 11:09 AM EDT INTERPRETIVE INFORMATION: Brayan-Holguin Virus Antibody to Viral Capsid Antigen, IgM 35.9 U/mL or less.......Not Detected 36.0-43.9 U/mL..........Indeterminate - Repeat testing in 10-14 days may be helpful. 44.0 U/mL or greater....Detected Performed By: [employer] [address] [place] [address] Substation Maintenance Technician: Wilber Pardo MD, PhD CLIA Number: [id number] us [employer] LAB BLOOD ORDERABLES Final Res ult Tame) [address] [place] [address] * (ABNORMAL) Brayan Holguin IgG Ab (12/15/2024 3:29 PM EDT) Pathologist [facility] EBV ANTIBODY TO VIRAL CAPSID ANTIGEN IGG 185.0(H) 0.0 - 21.9 U/mL 12/18/2024 11:11 AM EDT Tame) Blood Venous blood specimen / Unknown Venipuncture / Unknown 12/15/2024 3:29 PM EDT 12/15/2024 3:30 PM EDT Narrative Tame) - 12/18/2024 11:11 AM EDT INTERPRETIVE INFORMATION: Brayan-Holguin Virus Antibody to Viral Capsid Antigen, IgG 17.9 U/mL or less.......Not Detected 18.0-21.9 U/mL..........Indeterminate - Repeat testing in 10-14 days may be helpful. 22.0 U/mL or greater....Detected Performed By: [employer] [address] [id number] Substation Maintenance Technician: Wilber Pardo MD, PhD CLIA Number: [id number] [facility] LAB BLOOD ORDERABLES Final Res ult Performing Organization Address [facility] Co de Phone Number [facility] (BEAKER) [address] [place] [address] * Prothrombin Time/INR (12/15/2024 3:29 PM EDT) Prothrombin Time 13.7 12.0 - 14.3 sec LAB COAGULATION METHOD 12/15/2024 5:05 PM EDT [facility] INR 1.0 0.9 - 1.1 LAB COAGULATION METHOD 12/15/2024 5:05 PM EDT [facility] Blood Venous blood specimen / Unknown Venipuncture / Unknown 12/15/2024 3:29 PM EDT 12/15/2024 3:30 PM EDT Narrative [facility] - 12/15/2024 5:05 PM EDT OPTIMAL INR RANGES FOR PATIENT ON ORAL ANTICOAGULANT THERAPY Prevention of venous thromboembolism INR 2.0 to 3.0 In patients with heart disease: Atrial fibrillation INR 2.0 to 3.0 Valvular heart disease INR 2.0 to 3.0 Tissue heart valves INR 2.0 to 3.0 Mechanical prosthetic valves INR 2.5 to 3.5 Prevention of recurrent NM INR 2.5 to 3.5 [employer] LAB BLOOD ORDERABLES Final Res ult Performing Organization Address City/[facility]/ZIP Co de Phone Number [facility] [address] [place] [address] * (ABNORMAL) CBC and Differential (12/15/2024 3:29 PM EDT) WBC Count 5.38 3.70 - 10.30 10*3/uL LAB HEMATOLOGY METHOD 12/15/2024 4:38 PM EDT [facility] RBC Count 4.81 3.90 - 5.20 10*6/uL LAB HEMATOLOGY METHOD 12/15/2024 4:38 PM EDT [facility] HGB 12.6 11.2 - 15.7 g/dL LAB HEMATOLOGY METHOD 12/15/2024 4:38 PM EDT [facility] HCT 39.7 34.0 - 45.0 % LAB HEMATOLOGY METHOD 12/15/2024 4:38 PM EDT [facility] Platelet Count 311 155 - 369 10*3/uL LAB HEMATOLOGY METHOD 12/15/2024 4:38 PM EDT [facility] MCV 83 79 - 98 fL LAB HEMATOLOGY METHOD 12/15/2024 4:38 PM EDT [facility] MCH 26.2 26.0 - 32.0 pg LAB HEMATOLOGY METHOD 12/15/2024 4:38 PM EDT [facility] MCHC 31.7 30.7 - 35.5 g/dL LAB HEMATOLOGY METHOD 12/15/2024 4:38 PM EDT [facility] RDW 12.2 11.5 - 14.5 % LAB HEMATOLOGY METHOD 12/15/2024 4:38 PM EDT [facility] MPV 11.2 8.8 - 12.5 fL LAB HEMATOLOGY METHOD 12/15/2024 4:38 PM EDT [facility] nRBC 0.0 <=0.0 per 100 WBCs LAB HEMATOLOGY METHOD 12/15/2024 4:38 PM EDT [facility] Differential Type Automated LAB HEMATOLOGY METHOD 12/15/2024 4:38 PM EDT [facility] Neutrophils % 61 % LAB HEMATOLOGY METHOD 12/15/2024 4:38 PM EDT [facility] Lymphocytes % 32 % LAB HEMATOLOGY METHOD 12/15/2024 4:38 PM EDT [facility] Monocytes % 5 % LAB HEMATOLOGY METHOD 12/15/2024 4:38 PM EDT [facility] Eosinophils % 1 % LAB HEMATOLOGY METHOD 12/15/2024 4:38 PM EDT [facility] Basophils % 1 % LAB HEMATOLOGY METHOD 12/15/2024 4:38 PM EDT [facility] Immature Granulocytes % 0 % LAB HEMATOLOGY METHOD 12/15/2024 4:38 PM EDT [facility] Neutrophils Absolute 3.33 1.60 - 6.10 10*3/uL LAB HEMATOLOGY METHOD 12/15/2024 4:38 PM EDT [facility] Lymphocytes Absolute 1.70 1.20 - 3.90 10*3/uL LAB HEMATOLOGY METHOD 12/15/2024 4:38 PM EDT [facility] Monocytes Absolute 0.25(L) 0.30 - 0.90 10*3/uL LAB HEMATOLOGY METHOD 12/15/2024 4:38 PM EDT [facility] Eosinophils Absolute 0.03 0.00 - 0.50 10*3/uL LAB HEMATOLOGY METHOD 12/15/2024 4:38 PM EDT [facility] Basophils Absolute 0.05 0.00 - 0.10 10*3/uL LAB HEMATOLOGY METHOD 12/15/2024 4:38 PM EDT [facility] Immature Granulocytes Absolute 0.02 0.00 - 0.06 10*3/uL LAB HEMATOLOGY METHOD 12/15/2024 4:38 PM EDT [facility] Blood Venous blood specimen / Unknown Venipuncture / Unknown 12/15/2024 3:29 PM EDT 12/15/2024 3:30 PM EDT Narrative [facility] - 12/15/2024 4:38 PM EDT Therapeutic decision making should be based on absolute values, rather than percentages. us [employer] [facility] LAB BLOOD ORDERABLES Final Res ult [facility] [address] [place] [address] * (ABNORMAL) Comprehensive Metabolic Panel, Plasma (12/15/2024 3:29 PM EDT) Only the most recent of2 resultswithin the time period is included. Glucose, Plasma 84 74 - 99 mg/dL 12/15/2024 4:54 PM EDT [facility] BUN, Plasma 8 7 - 21 mg/dL 12/15/2024 4:54 PM EDT [facility] Creatinine, Plasma 0.60 0.60 - 1.10 mg/dL 12/15/2024 4:54 PM EDT [facility] BUN/Creatinine Ratio 13 12/15/2024 4:54 PM EDT [facility] Sodium, Plasma 140 136 - 145 mmol/L 12/15/2024 4:54 PM EDT [facility] Potassium, Plasma 4.1 3.6 - 4.9 mmol/L 12/15/2024 4:54 PM EDT [facility] Chloride, Plasma 105 97 - 107 mmol/L 12/15/2024 4:54 PM EDT [facility] CO2, Plasma 21(L) 22 - 29 mmol/L 12/15/2024 4:54 PM EDT [facility] Anion Gap 14 6 - 16 mmol/L 12/15/2024 4:54 PM EDT [facility] Total Calcium, Plasma 9.4 8.9 - 10.2 mg/dL 12/15/2024 4:54 PM EDT [facility] Total Protein 8.1(H) 6.3 - 7.9 g/dL 12/15/2024 4:54 PM EDT [facility] Albumin, Plasma 4.6 3.5 - 5.2 g/dL 12/15/2024 4:54 PM EDT [facility] AST, Plasma 16 10 - 35 U/L 12/15/2024 4:54 PM EDT [facility] ALT, Plasma 23 10 - 35 U/L 12/15/2024 4:54 PM EDT [facility] Alkaline Phosphatase, Plasma 58 35 - 104 U/L 12/15/2024 4:54 PM EDT [facility] Total Bilirubin, Plasma 0.7 0.2 - 1.1 mg/dL 12/15/2024 4:54 PM EDT [facility] eGFRcr 127.1 mL/min/1.7 3m*2 12/15/2024 4:54 PM EDT [facility] Comment:Reported eGFRcr in m L/min/1.73m2 is based the CKD-EPI 2020 equation that does not use a race coefficient. Blood Venous blood specimen / Unknown Venipuncture / Unknown 12/15/2024 3:29 PM EDT 12/15/2024 3:30 PM EDT [facility] LAB BLOOD ORDERABLES Final Res ult [facility] [address] [place] [address] * Patency Capsule (12/07/2024 7:03 AM EDT) [...] Posada MD on 11/20/2024 9:49 PM Shani Shankar DO IMG XR PROCEDURES Final Resul t * Troponin now and 120 min (11/20/2024 9:17 PM EDT) Troponin T, High Sensitivity, 0 Hour <6 <14 ng/L 11/20/2024 9:47 PM EDT [facility] Blood Venous blood specimen / Unknown Venipuncture / Unknown 11/20/2024 9:17 PM EDT 11/20/2024 9:20 PM EDT us Shani Shankar DO LAB BLOOD ORDERABLES Final Re sult [facility] [address] [place] [address] * CBC (11/20/2024 9:17 PM EDT) Pathologist [facility] WBC Count 4.69 3.70 - 10.30 10*3/uL LAB HEMATOLOGY METHOD 11/20/2024 9:23 PM EDT [facility] RBC Count 4.26 3.90 - 5.20 10*6/uL LAB HEMATOLOGY METHOD 11/20/2024 9:23 PM EDT [facility] HGB 11.8 11.2 - 15.7 g/dL LAB HEMATOLOGY METHOD 11/20/2024 9:23 PM EDT [facility] HCT 35.8 34.0 - 45.0 % LAB HEMATOLOGY METHOD 11/20/2024 9:23 PM EDT [facility] Platelet Count 197 155 - 369 10*3/uL LAB HEMATOLOGY METHOD 11/20/2024 9:23 PM EDT [facility] MCV 84 79 - 98 fL LAB HEMATOLOGY METHOD 11/20/2024 9:23 PM EDT [facility] MCH 27.7 26.0 - 32.0 pg LAB HEMATOLOGY METHOD 11/20/2024 9:23 PM EDT [facility] MCHC 33.0 30.7 - 35.5 g/dL LAB HEMATOLOGY METHOD 11/20/2024 9:23 PM EDT [facility] RDW 12.5 11.5 - 14.5 % LAB HEMATOLOGY METHOD 11/20/2024 9:23 PM EDT [facility] MPV 11.6 8.8 - 12.5 fL LAB HEMATOLOGY METHOD 11/20/2024 9:23 PM EDT [facility] nRBC 0.0 <=0.0 per 100 WBCs LAB HEMATOLOGY METHOD 11/20/2024 9:23 PM EDT [facility] Blood Venous blood specimen / Unknown Venipuncture / Unknown 11/20/2024 9:17 PM EDT 11/20/2024 9:20 PM EDT [employer] DO LAB BLOOD ORDERABLES Final Re sult Performing Organization Address City/[facility]/ZIP Co de Phone Number [facility] [address] [place] [address] * hCG qualitative (11/20/2024 9:17 PM EDT) Test Negative Negative 11/20/2024 10:02 PM EDT [facility] Blood Venous blood specimen / Unknown Venipuncture / Unknown 11/20/2024 9:17 PM EDT 11/20/2024 9:20 PM EDT Narrative [facility] - 11/20/2024 10:02 PM EDT Reference Range: Males and non- females: Negative. [email or web address] LAB BLOOD ORDERABLES Final Re sult Performing Organization Address [facility] Co de Phone Number [facility] [address] [place] [address] * Phosphorus (11/20/2024 9:17 PM EDT) Phosphorus, Plasma 3.5 2.5 - 4.5 mg/dL 11/20/2024 10:02 PM EDT [facility] Blood Venous blood specimen / Unknown Venipuncture / Unknown 11/20/2024 9:17 PM EDT 11/20/2024 9:20 PM EDT Smish DO LAB BLOOD ORDERABLES Final Re sult Performing Organization Address City/[facility]/ZIP Co de Phone Number [facility] [address] [place] [address] * Magnesium (11/20/2024 9:17 PM EDT) Pathologist [facility] Magnesium, Plasma 2.1 1.9 - 2.4 mg/dL 11/20/2024 10:02 PM EDT [facility] Blood Venous blood specimen / Unknown Venipuncture / Unknown 11/20/2024 9:17 PM EDT 11/20/2024 9:20 PM EDT Shani Shankar DO LAB BLOOD ORDERABLES Final Re sult [facility] [address] [place] [address] * (ABNORMAL) Blood gas panel, venous (11/20/2024 9:17 PM EDT) Pathologist [facility] pH, Venous 7.38 7.32 - 7.43 LAB HEMATOLOGY METHOD 11/20/2024 9:21 PM EDT [facility] pCO2, Venous 44 37 - 52 mmHg LAB HEMATOLOGY METHOD 11/20/2024 9:21 PM EDT [facility] pO2, Venous 26 25 - 40 mmHg LAB HEMATOLOGY METHOD 11/20/2024 9:21 PM EDT [facility] SO2, Measured, Venous 44(L) 65 - 80 % LAB HEMATOLOGY METHOD 11/20/2024 9:21 PM EDT [facility] Base Excess, Venous 0.2 -2.0 - 3.0 mmol/L LAB HEMATOLOGY METHOD 11/20/2024 9:21 PM EDT [facility] Bicarbonate, Calculated, Venous 26 22 - 26 mmol/L LAB HEMATOLOGY METHOD 11/20/2024 9:21 PM EDT [facility] Hematocrit, Whole Blood 37.4 34.0 - 45.0 % LAB HEMATOLOGY METHOD 11/20/2024 9:21 PM EDT [facility] Sodium, Whole Blood 141 136 - 145 mmol/L LAB HEMATOLOGY METHOD 11/20/2024 9:21 PM EDT [facility] Potassium, Whole Blood 4.0 3.6 - 4.9 mmol/L LAB HEMATOLOGY METHOD 11/20/2024 9:21 PM EDT [facility] Chloride, Whole Blood 110(H) 97 - 107 mmol/L LAB HEMATOLOGY METHOD 11/20/2024 9:21 PM EDT [facility] Glucose, Whole Blood 98 74 - 99 mg/dL LAB HEMATOLOGY METHOD 11/20/2024 9:21 PM EDT [facility] Lactate, Venous, Whole Blood 1.0 0.5 - 2.2 mmol/L LAB HEMATOLOGY METHOD 11/20/2024 9:21 PM EDT [facility] Ionized Calcium, Whole Blood 4.8 4.6 - 5.1 mg/dL LAB HEMATOLOGY METHOD 11/20/2024 9:21 PM EDT [facility] Blood Venous blood specimen / Unknown Venipuncture / Unknown 11/20/2024 9:17 PM EDT 11/20/2024 9:20 PM EDT us Shani Shankar DO LAB BLOOD ORDERABLES Final Re sult Performing Organization Address City/[facility]/ZIP Co de Phone Number [facility] [address] [place] [address] * EKG now - STAT (adult) (11/20/2024 8:52 PM EDT) EKG DIAGNOSIS CLASS Abnormal MUSE ECG Ventricular Rate 83 BPM MUSE ECG Atrial Rate 83 BPM MUSE ECG VA Interval 128 ms MUSE ECG QRSD Interval 72 ms MUSE ECG QT Interval 342 ms MUSE ECG QTC Interval 401 ms MUSE ECG P [place] 60 degrees MUSE ECG R [place] 62 degrees MUSE ECG T Wave [place] 21 degrees MUSE ECG Diagnosis Sinus rhythm [...] ORDERABLES Susannah l Result Performing Organization Address City/[facility]/ZIP Co de Phone Number [facility] [address] [place] [address] * Hepatitis C Antibody - ED (02/07/2024 10:11 PM EDT) Hepatitis C Antibody Negative Negative 02/07/2024 11:11 PM EDT [facility] Blood Venous blood specimen / Unknown Venipuncture / Unknown 02/07/2024 10:11 PM EDT 02/07/2024 10:18 PM EDT us Mark Roger MD LAB BLOOD ORDERABLES Final Resu lt Performing Organization Address City/[facility] de Phone Number [facility] [address] [place] [address] from Last 3 Months or Most Recently Relevant to Health Maintenance Additional Health Concerns Active Problems Noted Date Diagnosed Date CPM S22 PP LABOR (OBSTETRICS) 02/24/2024 Insurance [place] Advance Directives * Full Code (Latest Code [...] Patient has decision-making capacity? Yes Care Teams Oil Recovery Operator Relationship Specialty [place] [address] [place] [address] PCP - General 11/16/24 Angela Oleary, RN [facility] Registered Nurse Cardiology 02/17/24
--- OUTSIDE RECORDS SUMMARY | 2025-02-02 13:40 | XMS_ITS | Encounter Summary ---
Author Organization [facility] Address [address] [place] [address] Care Team Providers Care Rockboard Lather Name Role Phone Angela Oleary RN Unavailable Unavailable Rey Wyatt MD Primary Care Provider [phone] Reason for Referral * Imaging (Routine) - Closed Specialty Diagnoses / Procedures Referred By Mili joe Referred To Contact Gastroenterology Diagnoses Abdominal pain, epigastric Diarrhea, unspecified type Weight loss Hematochezia Procedures Capsule Endoscopy Silverio Tam PA [address] [facility] [address] [place] [address] Phone: tel: fax: Referral ID Status Reason Start Date Expiration Date V isits Requested Visits Authorized [id number] Closed Specialty Services Required 12/28/2024 06/29/2026 1 1 Encounter Details Date Type Department Care Team (Late st Contact Info) Description 12/28/2024 [facility] Only [facility] [address] [place] [address] Silverio Tam PA [address] [facility] [address] [place] [address] Abdominal pain, epigastric (Primary Dx); [...] often do you attend chur ch or confucianism services? Never 02/22/2024 Do you belong to [...] in a prison (including now)? No 02/09/2024 [place] Depression Scale Answer Date Recorded [place] Depression Scale Total 6 08/08/2024 The thought [...] drink first t casi in the morning (EYE-SCREW MACHINE TENDER) to steady your nerves or to get rid of a hangover? 0 07/16/2024 CAGE Questionnaire Score 0 024 Utilities Answer Date Recorded In the past 12 months has e [employer], gas, oil, or water [employer] threatened to shut off services in [...] 10:00 AM EDT Office Visit [facility] Endocrinology [address] [place] [address] Rachel Khan PA [address] [facility] [address] [place] [address] 02/16/2025 1:20 PM EDT Office Visit [facility] [place] [address] [facility], [address] [place] [address] Courtney Torres MD [address] [facility] [address] [place] [address] 03/15/2025 3:30 PM EDT Consult [facility] [address] [place] [address] Kendy Sanchez APRN [address] [place] [address] 04/17/2025 2:00 PM EDT [facility] [address], [address] [place] [address] Silverio Tam PA [address] [place] [address] documented as of this encounter [...] documented as of this encounter Care Teams Rockboard Lather Relationship Specialty Start Date End Date Rey Wyatt MD [address] [place] [address] PCP - General 11/16/24 Angela Oleary, RN [facility] Registered Nurse Cardiology 02/17/24 documented as of this encounter
--- OUTSIDE RECORDS SUMMARY | 2025-02-02 13:40 | XMS_ITS | Encounter Summary ---
Author Organization Healthcare Address [address] [place] [address] Care Team Providers Care Portfolio Analyst Name Role Phone Angela Oleary RN Unavailable [...] 02/22/2024 How often do you attend [facility] or oriental orthodox services? Never 02/22/2024 [...] in a penitentiary (including now)? No 02/09/2024 [place] Depression Scale Answer Date Recorded [place] Depression Scale Total 6 08/08/2024 The thought [...] drink first t casi in the morning (EYE-DOOR FRAME BUILDER) to steady your nerves or to get rid of a hangover? 0 07/16/2024 CAGE Questionnaire Score 0 024 Utilities Answer Date Recorded In the past 12 months has th e [employer], gas, oil, or water company threatened to [...] Description 02/10/2025 10:00 AM EDT Office Visit [facility] Endocrinology [address] [place] [address] Rachel Khan PA [address] [place] [address] 02/16/2025 1:20 PM EDT Office Visit [facility] [place] [address] [place] [address] Courtney Torres MD [address] [place] [address] 03/15/2025 3:30 PM EDT Consult [facility] [address] [place] [address] Kendy Sanchez APRN [address] [place] [address] 04/17/2025 2:00 PM EDT Office Visit [facility] Medicine Specialties [address], [address] [place] [address] Silverio Tam PA [address] [place] [address] documented as of this encounter [...] documented as of this encounter Care Teams Portfolio Analyst Relationship Specialty Start Date End Date Rey Wyatt MD [address] [place] [address] PCP - General 11/16/24 Angela Oleary, RN [facility] Registered Nurse Cardiology 02/17/24 documented as of this encounter
--- OUTSIDE RECORDS SUMMARY | 2025-02-02 13:40 | XMS_ITS | Encounter Summary ---
Author Organization Healthcare Address [address] [place] [address] Care Team Providers Care Computer Systems Security Analyst Name Role Phone Angela Oleary RN Unavailable Unavailable Rey Wyatt MD Primary Care Provider [phone] Encounter Details Date Type Department Care Team (Late st Contact Info) Description 12/30/[address] [facility] Medicine Specialties [address], [address] [place] [address] Silverio Tam PA [address] [place] [address] Social History Tobacco Use Types [...] often do you attend chur ch or shinto services? Never 02/22/2024 Do you belong to [...] Recorded Patient Health Questionnaire-2 Score 0 12/15/2024 [facility] - Occupational Stress Questionnaire Answer [...] in a residential (including now)? No 02/09/2024 [place] Depression Scale Answer Date Recorded [place] Depression Scale Total 6 08/08/2024 The thought [...] drink first t casi in the morning (EYE-TENTER FRAME BACK TENDER) to steady your nerves or to get rid of a hangover? 0 07/16/2024 CAGE Questionnaire Score 0 024 Utilities Answer Date Recorded In the past 12 months has th e [employer], gas, oil, or water company threatened to [...] EDT Office Visit [facility] Endocrinology [address] [place] [address] Rachel Khan PA [address] [place] [address] 02/16/2025 1:20 PM EDT Office Visit [facility] [place] [address] [place] [address] Courtney Torres MD [address] [place] [address] 03/15/2025 3:[address] [facility] [address] 1[address] [place] [address] Kendy Sanchez APRN [address] [place] [address] 04/17/2025 2:00 PM EDT Office Visit [facility] Medicine Specialties [address], [address] [place] [address] Silverio Tam PA [address] [place] [address] documented as of this encounter [...] as of this encounter Care Teams Computer Systems Security Analyst Relationship Specialty Start Date End Date Rey Wyatt MD [address] [facility] [address] [place] [address] PCP - General 11/16/24 Angela Oleary, RN [facility] Registered Nurse Cardiology 02/17/24 documented as of this encounter
--- OUTSIDE RECORDS SUMMARY | 2025-02-02 13:40 | XMS_ITS | Encounter Summary ---
Author Organization Healthcare Address [address] [place] [id number] Care Team Providers Care Roastmaster Name Role Phone Angela Oleary RN Unavailable Unavailable Rey Wyatt MD Primary Care Provider [phone] Encounter Details Date Type Department Care Team (Late st Contact Info) Description 12/16/2024 Results Follow-Up [facility] Endocrinology [address] [place] [address] MunugotiHugohitha [address] [place] [id number] Social History Tobacco Use Types Packs/Day Years [...] often do you attend chur ch or sikh services? Never 02/22/2024 Do you [...] Recorded Patient Health Questionnaire-2 Score 0 12/15/2024 [facility] of Occupat ional [facility] - Occupational Stress Questionnaire Answer Date [...] in a fpc (including now)? No 02/09/2024 [place] Depression Scale Answer Date Recorded [place] Depression Scale Total 6 08/08/2024 The thought [...] first t casi in the morning (EYE-MANAGER CARE) to steady your nerves or to get [...] Description 02/10/2025 10:00 AM EDT Office Visit [facility] Endocrinology [address] [place] [address] Rachel Khan PA [address] [place] [address] 02/16/2025 1:20 PM EDT Office Visit [facility] [place] [address] [place] [address] Courtney Torres MD [address] [facility] [address] [place] [address] 03/15/2025 3:30 PM EDT Consult [facility] [address] 1st [place] [address] Kendy Sanchez APRN [address] [place] [address] 04/17/2025 2:00 PM EDT Office Visit [facility] Medicine Specialties [address], [address] [place] [address] Silverio Tam PA [address] [place] [address] documented as of this encounter Goals Goal Patient Goal Type Associated Problems Recent Progress Patient-Stated? Author Delayed Delivery Care Plan CPM S22 PP LABOR (OBSTETRICS) No Open Scheduling, Background documented as of this encounter Results * T4, free (01/17/2025 8:47 AM EDT) Free T4, Plasma 0.8 0.8 - 1.7 ng/dL 01/17/2025 11:38 AM EDT [facility] Blood Venous blood specimen [...] ORDERABLES Final Resu lt Performing Organization Address [facility] de Phone Number [facility]ALTHCARE [facility] [address] [place] [address] * TSH (01/17/2025 8:47 AM EDT) Thyroid Stimulating Hormone, Plasma 1.83 0.40 - 4.20 uIU/mL 01/17/2025 11:38 AM EDT [facility] Blood Venous blood specimen / Unknown Venipuncture / Unknown 01/17/2025 8:47 AM EDT 01/17/2025 8:47 AM EDT Narrative [facility] - 01/17/2025 11:38 AM EDT Trimester Specific Ranges TSH ( IU/mL) 1st Trimester 0.1 - 3.0 2nd Trimester 0.19 - 4.06 3rd Trimester 0.3 - 3.7 us Roland Wooten MD LAB BLOOD ORDERABLES Final Resu lt Performing Organization Address [place] de Phone Number [facility] [address] [place] [address] documented in this encounter Visit Diagnoses Diagnosis [...] documented as of this encounter Care Teams Roastmaster Relationship Specialty Start Date End Date Rey Wyatt MD [address] [facility] [address] [place] [address] PCP - General 11/16/24 Angela Oleary, RN [facility] Registered Nurse Cardiology 02/17/24 documented as of this encounter
--- OUTSIDE RECORDS SUMMARY | 2025-02-02 13:40 | XMS_ITS | Encounter Summary ---
Author Organization Healthcare Address [address] [place] [address] Care Team Providers Care Keypunch Operator Name Role Phone Molly Louis MD Primary Care Provider [phone] Angela Oleary RN Unavailable Unavailable Rey Wyatt MD Primary Care Provider [phone] Reason for Visit * Reason Onset Date Comments Med Refill 03/03/2024 Encounter Details Date Type Department Care Team ([facility] Contact Info) Description 03/03/2024 Refill Medical Office Building Obstetrics and Gynecology [address] [facility], [address] [place] [address] CantonEarle Villagomez MD [address] [facility] [address] [place] [address] Supervision of high risk in [...] any clubs o r organizations such as jewish groups, unions, fraternal or athletic groups, or [...] Recorded Patient Health Questionnaire-2 Score 0 02/17/2024 [facility] of Occupat ional Health - Occupational Stress [...] in a half-way (including now)? No 02/09/2024 [place] Depression Scale Answer Date Recorded [place] Depression Scale Total 8 02/22/2024 The thought [...] requesting to speak with a nurse- see [employer] [facility] for details about symptoms she is experiencing. * Telephone Encounter - Luh Keenan RN - 03/04/2024 1:56 PM EDT Patient has refills on file. Needs to call pharmacy. Luh Keenan, RN documented in this encounter Plan of Treatment Upcoming Encounters Date Type Department Care Team (Late st Contact Info) Description 02/10/2025 10:00 AM EDT [facility] [address] [place] [address] Rachel Khan PA [address] [facility] [address] [place] [address] 02/16/2025 1:20 PM EDT Office Visit [facility] [place] [address] [facility], [address] [place] [address] Courtney Torres MD [address] [facility] [address] [place] [address] 03/15/2025 3:30 PM EDT Consult [facility] [address], 1[address] [place] [address] Kendy Sanchez APRN [address] [place] [address] 04/17/2025 2:00 PM EDT Office Visit [facility] Medicine Specialties [address], 2[address] [place] [address] Silverio Tam PA [address] [place] [address] documented as of this encounter [...] documented as of this encounter Care Teams Keypunch Operator Relationship Specialty Start Date End Date Molly Louis MD [address] [place] [address] PCP - General Family Medicine 02/09/24 11/15/24 Rey Wyatt MD [address] [place] [address] [place] [address] PCP - General 11/16/24 Angela Oleary, RN [facility] Registered Nurse Cardiology 02/17/24 documented as of this encounter
--- OUTSIDE RECORDS SUMMARY | 2025-02-02 13:40 | XMS_ITS | Encounter Summary ---
Author Organization Healthcare Address [address] [place] [address] Care Team Providers Care Rn Labor Delivery Name Role Phone Molly Louis MD Primary Care Provider [phone] Angela Oleary RN Unavailable Unavailable Rey Wyatt MD Primary Care Provider Reason for Visit * Reason Onset Date Comments Med Refill 03/23/2024 Encounter Details Date Type Department Care Team ([facility] Contact Info) Description 03/23/2024 Refill Medical Office Building Obstetrics and Gynecology [address] [facility], [address] [place] [address] Shalonda Davies, HIGH SCHOOL HOME ECONOMICS TEACHER [address] [facility] [address] [place] [address] Social History Tobacco Use Types [...] How often do you attend chur or catholic services? Never 02/22/2024 Do you [...] Patient Health Questionnaire-2 Score 0 02/17/2024 [facility] of Occupat ional Health - Occupational [...] in a detention (including now)? No 02/09/2024 [place] Depression Scale Answer Date Recorded [place] Depression Scale Total 8 02/22/2024 The thought [...] first t casi in the morning (EYE-SENIOR OUTSIDE SALES REPRESENTATIVE) to steady your nerves or [...] Description 02/10/2025 10:00 AM EDT Office Visit [facility] Endocrinology [address] [place] [address] Rachel Khan PA [address] [facility] [address] [place] [address] 02/16/2025 1:20 PM EDT Office Visit [facility] [place] [address] [place] [address] Courtney Torres MD [address] [place] [address] 03/15/2025 3:30 PM EDT Consult [facility] [address], 1[address] [place] [address] Kendy Sanchez APRN [address] [place] [address] 04/17/2025 2:00 PM EDT Office Visit [facility] Medicine Specialties [address], 2[address] [place] [address] Silverio Tam PA [address] [place] [address] documented as of this encounter [...] documented as of this encounter Care Teams Rn Labor Delivery Relationship Specialty Start Date End Date Molly Louis MD [address] [place], [place] [id number] PCP - General Family Medicine 02/09/24 11/15/24 Rey Wyatt MD [address] [place] [address] [place] [address] PCP - General 11/16/24 Angela Oleary, RN [facility] Registered Nurse Cardiology 02/17/24 documented as of this encounter
--- OUTSIDE RECORDS SUMMARY | 2025-02-02 13:40 | XMS_ITS | Encounter Summary ---
Author Organization Healthcare Address [address] [place] [id number] Care Team Providers Care Marble Polisher Hand Name Role Phone Angela Oleary RN Unavailable Unavailable Rey Wyatt MD Primary Care Provider [phone] Encounter Details Date Type Department Care Team (Late st Contact Info) Description 01/18/2025 Results Follow-Up [facility] Endocrinology [address] [place] [address] MunugotiHugohitha [address] [place] [id number] Social History Tobacco Use Types Packs/Day Years [...] 0 12/15/2024 [employer] of Occupat ional [facility] - Occupational Stress Questionnaire Answer Date [...] in a halfway (including now)? No 02/09/2024 [place] Depression Scale Answer Date Recorded [place] Depression Scale Total 6 08/08/2024 The [...] drink first t casi in the morning (EYE-BRAND AMBASSADOR PROMOTIONAL MODEL) to steady your nerves or to get [...] Office Visit [facility] Endocrinology [address] [place] [address] Rachel Khan PA [address] [place] [address] 02/16/2025 1:20 PM EDT Office Visit [facility] [place] [address] [facility], [address] [place] [address] Courtney Torres MD [address] [facility] [address] [place] [address] 03/15/2025 3:30 PM EDT Consult [facility] [address] [place] [address] Kendy Sanchez APRN [address] [place] [address] 04/17/2025 2:00 PM EDT Office Visit [facility] Medicine Specialties [address], [address] [place] [address] Silverio Tam PA [address] [place] [address] Scheduled Orders Name Type Priority [...] documented as of this encounter Care Teams Marble Polisher Hand Relationship Specialty Start Date End Date Rey Wyatt MD [address] [place] [address] PCP - General 11/16/24 Angela Oleary, RN [facility] Registered Nurse Cardiology 02/17/24 documented as of this encounter
--- OUTSIDE RECORDS SUMMARY | 2025-02-02 13:40 | XMS_ITS | Encounter Summary ---
Author Organization Healthcare Address [address] [place] [address] Care Team Providers Care Sail Repairer Name Role Phone Angela Oleary RN Unavailable Unavailable Rey Wyatt MD Primary Care Provider [phone] Encounter Details Date Type Department Care Team (Late st Contact Info) Description 12/20/2024 Results Follow-Up [facility] Medicine Specialties [address] [place] [address] Silverio Tam PA [address] [place] [address] Social History Tobacco Use Types [...] any clubs o r organizations such as judaism groups, unions, fraternal or athletic groups, or [...] Recorded Patient Health Questionnaire-2 Score 0 12/15/2024 [facility] - Occupational Stress Questionnaire Answer Date [...] a nursing home (including now)? No 02/09/2024 [place] Depression Scale Answer Date Recorded [place] Depression Scale Total 6 08/08/2024 The thought [...] drink first t casi in the morning (EYE-TRAFFIC SIGNAL REPAIRER) to steady your nerves or to get [...] 10:00 AM EDT Office Visit [facility] Endocrinology [address] [place] [address] Rachel Khan PA [address] [place] [address] 02/16/2025 1:20 PM EDT Office Visit [facility] [place] [address], [address] [place] [address] Courtney Torres MD [address] [place] [address] 03/15/2025 3:30 PM EDT Consult [facility] [address] [place] [address] Kendy Sanchez APRN [address] [place] [address] 04/17/2025 2:00 PM EDT Office Visit [facility] Medicine Specialties [address] [place] [address] Silverio Tam PA [address] [place] [address] documented as of this encounter [...] documented as of this encounter Care Teams Sail Repairer Relationship Specialty Start Date End Date Rey Wyatt MD [address] [facility] [address] [place] [address] PCP - General 11/16/24 Angela Oleary, RN [facility] Registered Nurse Cardiology 02/17/24 documented as of this encounter
--- OUTSIDE RECORDS SUMMARY | 2025-02-02 13:40 | XMS_ITS | Encounter Summary ---
Author Organization Healthcare Address [address] [place] [address] Care Team Providers Care Machinist Wood Name Role Phone Angela Oleary RN Unavailable Unavailable Rey Wyatt MD Primary Care Provider [phone] Encounter Details Date Type Department Care Team (Late st Contact Info) Description 12/09/2024 Orders Only [facility]ties [address], [address] [place] [address] Silverio Tam PA [address] [place] [address] Social History Tobacco Use Types [...] often do you attend chur ch or quaker services? Never 02/22/2024 Do you [...] Health Questionnaire-2 Score 0 11/16/2024 [facility] - Occupational Stress Questionnaire Answer [...] in a custodial (including now)? No 02/09/2024 [place] Depression Scale Answer Date Recorded [place] Depression Scale Total 6 08/08/2024 The thought [...] drink first t casi in the morning (EYE-FUR CUTTER) to steady your nerves or to get rid of a hangover? 0 07/16/2024 CAGE Questionnaire Score 0 024 Utilities Answer Date Recorded In the past 12 months has th e [employer], gas, oil, or water company threatened to [...] EDT Office Visit [facility] [address] [place] [address] Rachel Khan PA [address] [place] [address] 02/16/2025 1:20 PM EDT Office Visit [facility] [place] Kaycee [address], [address] [place] [address] Courtney Torres MD [address] [place] [address] 03/15/2025 3:30 PM EDT Consult [facility] [address], 1[address] [place] [address] Kendy Sanchez APRN [address] [place] [address] 04/17/2025 2:00 PM EDT Office Visit [facility] Medicine Specialties [address], 2[address] [place] [address] Silverio Tam PA [address] [place] [address] documented as of this encounter [...] documented as of this encounter Care Teams Machinist Wood Relationship Specialty Start Date End Date Rey Wyatt MD [address] [facility] [address] [place] [address] PCP - General 11/16/24 Angela Oleary, RN [facility] Registered Nurse Cardiology 02/17/24 documented as of this encounter
--- OUTSIDE RECORDS SUMMARY | 2025-02-02 13:40 | XMS_ITS | Encounter Summary ---
Author Organization Healthcare Address [address] [place] [address] Care Team Providers Care Technology Instructor Name Role Phone Angela Oleary RN Unavailable Unavailable Rey Wyatt MD Primary Care Provider [phone] Encounter Details Date Type Department Care Team (Late st Contact Info) Description 12/28/2024 Orders Only [place] [facility] Medicine Specialties [address], [address] [place] [address] Keya Minor RN MEDICINE SPECIALTIES CLINIC Diarrhea, [...] often do you attend chur ch or scientology services? Never 02/22/2024 Do you [...] Health Questionnaire-2 Score 0 12/15/2024 [facility] - Occupational [...] in a jail (including now)? No 02/09/2024 [place] Depression Scale Answer Date Recorded [place] Depression Scale Total 6 08/08/2024 The thought [...] first t casi in the morning (EYE-COMPUTER SYSTEMS TECHNOLOGY INSTRUCTOR) to steady your nerves or to [...] Description 02/10/2025 10:00 AM EDT Office Visit [facility] [address] [place] [address] Rachel Khan PA [address] [place] [address] 02/16/2025 1:20 PM EDT Office Visit [facility] [place] [address], [address] [place] [address] Courtney Torres MD [address] [place] [address] 03/15/2025 3:30 PM EDT Consult [facility] [address], 1[address] [place] [address] Kendy Sanchez APRN [address] [place] [address] 04/17/2025 2:00 PM EDT Office Visit [facility] Medicine Specialties [address], [address] [place] [address] Silverio Tam PA [address] [place] [address] documented as of this encounter [...] documented as of this encounter Care Teams Technology Instructor Relationship Specialty Start Date End Date Rey Wyatt MD [address] [place] [address] PCP - General 11/16/24 Angela Oleary, RN [facility] Registered Nurse Cardiology 02/17/24 documented as of this encounter
--- OUTSIDE RECORDS SUMMARY | 2025-02-02 13:40 | XMS_ITS | Encounter Summary ---
Author Organization Healthcare Address [address] [place] [address] Care Team Providers Care Hat Renovator Name Role Phone Angela Oleary RN Unavailable Unavailable Rey Wyatt MD Primary Care Provider [phone] Encounter Details Date Type Department Care Team [...] 02/22/2024 How often do you attend [facility] or presybeterian services? Never 02/22/2024 Do you belong to [...] in a correction (including now)? No 02/09/2024 [place] Depression Scale [...] drink first t casi in the morning (EYE-MANUFACTURING WORKER) to steady your nerves or to [...] Visit [facility] [address] [place] [address] Rachel Khan PA [address] [place] [address] 02/16/2025 1:20 PM EDT Office Visit [facility] [place] [address] [facility], [address] [place] [address] Courtney Torres MD [address] [place] [address] 03/15/2025 3:[address] [facility] [address], 1st [place] [address] Kendy Sanchez APRN [address] [place] [address] 04/17/2025 2:00 PM EDT Office Visit [facility] Medicine Specialties [address], 2nd [place] [address] Silverio Tam PA [address] [place] [address] documented as of this encounter [...] documented as of this encounter Care Teams Hat Renovator Relationship Specialty Start Date End Date Rey Wyatt MD [address] [place] [address] PCP - General 11/16/24 Angela Oleary, RN [facility] Registered Nurse Cardiology 02/17/24 documented as of this encounter
--- OUTSIDE RECORDS SUMMARY | 2025-02-02 13:40 | XMS_ITS | Encounter Summary ---
Author Organization Healthcare Address [address] [place] [address] Care Team Providers Care Er Medical Technician Name Role Phone Angela Oleary RN Unavailable Unavailable Rey Wyatt MD Primary Care Provider [phone] Encounter Details Date Type Department Care Team (Late st Contact Info) Description 12/28/2024 Results Follow-Up [facility] Medicine Specialties [address], [address] [place] [address] Estuardo Jon MD [address] [place] [address] Social History Tobacco Use Types [...] often do you attend chur ch or christian services? Never 02/22/2024 Do you belong to [...] Recorded Patient Health Questionnaire-2 Score 0 12/15/2024 [facility] - Occupational Stress Questionnaire Answer [...] in a half-way (including now)? No 02/09/2024 [place] Depression Scale Answer Date Recorded [place] Depression Scale Total 6 08/08/2024 The thought [...] drink first t casi in the morning (EYE-KILN MECHANIC) to steady your nerves or to [...] Description 02/10/2025 10:00 AM EDT Office Visit [facility] Endocrinology [address] [place] [address] Rachel Khan PA [address] [facility] [address] [place] [address] 02/16/2025 1:20 PM EDT Office Visit [facility] [place] [address], [address] [place] [address] Courtney Torres MD [address] [place] [address] 03/15/2025 3:30 PM EDT Consult [facility] [address] 1[address] [place] [address] Kendy Sanchez, TRISTAN [address] [place] [address] 04/17/2025 2:00 PM EDT Office Visit [facility] Medicine Specialties [address], 2[address] [place] [address] Silverio Tam PA [address] [place] [address] documented as of this encounter Goals Goal [...] documented as of this encounter Care Teams Er Medical Technician Relationship Specialty Start Date End Date Rey Wyatt MD [address] [place] [address] PCP - General 11/16/24 Angela Oleary, RN [facility] Registered Nurse Cardiology 02/17/24 documented as of this encounter
--- OUTSIDE RECORDS SUMMARY | 2025-02-02 13:40 | XMS_ITS | Encounter Summary ---
Author Organization Healthcare Address [address] [place] [address] Care Team Providers Care Bricklayer Sewer Name Role Phone Angela Oleary RN Unavailable Unavailable Rey Wyatt MD Primary Care Provider [phone] Encounter Details Date Type Department Care Team [...] week 02/22/2024 How often do you attend [facility] or mormonism services? Never 02/22/2024 Do you [...] Recorded Patient Health Questionnaire-2 Score 0 11/16/2024 [facility]at ional [...] a nursing home (including now)? No 02/09/2024 [place] Depression Scale Answer Date Recorded [place] Depression Scale Total 6 08/08/2024 The thought [...] drink first t casi in the morning (EYE-INVENTORY SPECIALIST) to steady your nerves or to [...] Visit [facility] [address] [place] [address] Rachel Khan PA [address] [place] [address] 02/16/2025 1:20 PM EDT Office Visit [facility] [place] [address] [facility], [address] [place] [address] Courtney Torres MD [address] [place] [address] 03/15/2025 3:30 PM EDT Consult [facility] [address], 1st [place] [address] Kendy Sanchez APRN [address] [place] [address] 04/17/2025 2:00 PM EDT Office [facility] Medicine Specialties [address], [address] [place] [address] Silverio Tam PA [address] [place] [address] documented as of this encounter [...] documented as of this encounter Care Teams Bricklayer Sewer Relationship Specialty Start Date End Date Rey Wyatt MD [address] [place] [address] PCP - General 11/16/24 Angela Oleary, RN [facility] Registered Nurse Cardiology 02/17/24 documented as of this encounter
--- OUTSIDE RECORDS SUMMARY | 2025-02-02 13:41 | XMS_ITS | Encounter Summary ---
Author Organization Healthcare Address [address] [place] [address] Care Team Providers Care [facility] Name Role Phone Molly Louis MD Primary Care Provider [phone] Angela Oleary RN Unavailable Unavailable Rey Wyatt MD Primary Care Provider [phone] Reason for Visit * Reason Onset Date Comments Med Refill 07/19/2024 Encounter Details Date Type Department Care Team (Late st Contact Info) Description 07/19/2024 Refill [facility] [address] [facility], [address] [place] [address] Paris Marion MD [address] [place] [address] Social History Tobacco Use Types Packs/Day Years [...] How often do you attend chur or zoroastrianism services? Never 02/22/2024 Do you belong to [...] Recorded Patient Health Questionnaire-2 Score 0 06/22/2024 [facility] - Occupational Stress Questionnaire [...] in a mcfp (including now)? No 02/09/2024 [place] Depression Scale Answer Date Recorded [place] Depression Scale Total 8 02/22/2024 The thought [...] drink first t casi in the morning (EYE-WREATH INSPECTOR) to steady your nerves or to [...] EDT Office Visit [facility] [address] [place] [address] Rachel Khan PA [address] [facility] [address] [place] [address] 02/16/2025 1:20 PM EDT Office Visit [facility] [place] [address] [place] [address] Courtney Torres MD [address] [place] [address] 03/15/2025 3:[address] [facility] [address], 1[address] [place] [address] Kendy Sanchez APRN [address] [place] [address] 04/17/2025 2:00 PM EDT Office Visit [facility] Medicine Specialties [address], [address] [place] [address] Silverio Tam PA [address] [place] [address] documented as of this encounter Goals Goal [...] documented as of this encounter Care Teams [facility] Relationship Specialty Start Date End Date Molly Louis MD [address] [place], [place] [id number] PCP - General Family Medicine 02/09/24 11/15/24 Rey Wyatt MD [address] [place] [address] [place] [address] PCP - General 11/16/24 Angela Oleary, RN [facility] Registered Nurse Cardiology 02/17/24 documented as of this encounter
--- OUTSIDE RECORDS SUMMARY | 2025-02-02 13:41 | XMS_ITS | Encounter Summary ---
Author Organization Healthcare Address [address] [place] [address] Care Team Providers Care Investigator Welfare Name Role Phone Angela Oleary RN Unavailable Unavailable Rey Wyatt MD Primary Care Provider [phone] Encounter Details Date Type Department Care Team [...] week 02/22/2024 How often do you attend [facility] or nondenominational services? Never 02/22/2024 Do [...] Health Questionnaire-2 Score 0 12/15/2024 [facility]at ional Health - Occupational [...] in a intermediate (including now)? No 02/09/2024 [place] Depression Scale Answer Date Recorded [place] Depression Scale Total 6 08/08/2024 The thought [...] drink first t casi in the morning (EYE-WHITE SUGAR PAN TANK OPERATOR) to steady your nerves or to [...] Visit [facility] [address] [place] [address] Rachel Khan PA [address] [place] [address] 02/16/2025 1:20 PM EDT Office Visit [facility] [place] [address] [facility], [address] [place] [address] Courtney Torres MD [address] [place] [address] 03/15/2025 3:30 PM EDT Consult [facility] [address], [address] [place] [address] Kendy Sanchez APRN [address] [place] [address] 04/17/2025 2:00 PM EDT Office Visit [facility] Medicine Specialties [address], [address] [place] [address] Silverio Tam PA [address] [place] [address] documented as of this encounter [...] documented as of this encounter Care Teams Investigator Welfare Relationship Specialty Start Date End Date Rey Wyatt MD [address] [place] [address] PCP - General 11/16/24 Angela Oleary, RN [facility] Registered Nurse Cardiology 02/17/24 documented as of this encounter
--- OUTSIDE RECORDS SUMMARY | 2025-02-02 13:41 | XMS_ITS | Encounter Summary ---
Author Organization [employer] ([place], [place], [place], [place]) Address [address] [place] [address] Care Team Providers Care Biodiesel Plant Operations Engineer Name Role Phone Molly Louis MD Primary Care Provider [phone] Encounter Details Date Type Department Care Team (Late st Contact Info) Description 04/14/2024 Outside Orders [facility] Admitting [address] [place] [address] Silverio Tam, PA [address] [place] [address] Blood in stool (Primary Dx) Social History Tobacco Use Types Packs/Day Years Used Date Smoking Tobacco: Every Day Cigarettes 1 10 Smokeless Tobacco: Never Comments:stopped 2 months ag o, currently vapes Alcohol Use Standard Drinks/Week Comments Yes 0 (1 standard drink = 0.6 oz pur e alcohol) social Family and Community Support Answer Rodrigo e Recorded Help with Day to Day Activities Not on file 08/13/2023 Feeling Lonely or Isolated Not on file 08/13 Educational Attainment Answer Date Guerrero rded Speak language other than Malagasy at home Not on file 08/13/2023 Want help with school or training Not on file 08/13/2023 Substance Use Answer Date Recorded Used [...] 87(H) <=49 ug/g 04/19/2024 11:26 PM EDT [facility] Comment: REFERENCE INTERVAL: Calprotectin, Fecal by Immunoassay Less than 50 ug/g.........Normal 50-120 ug/g...............Borderline elevated, test should be re-evaluated in 4-6 weeks. 121 ug/g or greater.......Elevated Performed By: [facility] [address] [place] [address] Poultry Culler: Wilber Pardo MD, PhD CLIA Number: [id number] Stool 04/14/2024 11:0 6 AM EDT 04/14/2024 11:47 AM EDT us [facility] - GENERAL ORDERAB LES Final Result [facility] [address] [place] [address], [facility] [phone] documented in this encounter Visit Diagnoses Diagnosis Blood in stool- Primary documented in this encounter Care Teams Biodiesel Plant Operations Engineer Relationship Specialty Start Date End Date Molly Louis MD [address] [place] [address] PCP - General 08/22/24 documented as of this encounter
--- OUTSIDE RECORDS SUMMARY | 2025-02-02 13:41 | XMS_ITS | Referral Summary ---
Author Organization [employer] ([place], [place], [place], [place]) Address [address] [place] [address] Care Team Providers Care Studio Director Name Role Phone Molly Louis MD Primary Care Provider [phone] Allergies Active Allergy Reactions Criticality Noted Date [...] Date Guerrero rded Speak language other than Chadian at home Not on file 08/13/2023 Want [...] on file Medical Devices Implanted Type Area Staffing Administrator Device Identifier Shelf Expiration Date Model / Serial / Lot K-Wire [id number] - [id number] Implanted:Qty: 1 on 08/04/2022 by Rex Rene MD at [facility] IMPLANTS Right: Hand [employer] [id number] / / Wire K-Wire 1.6mm [id number] - [id number] Implanted:Qty: 1 on 08/04/2022 by Rex Rene MD at [facility] IMPLANTS Right: Hand BUCK MED GRP:BUCK MED TECH 2 / / [place] [address] [place] [address] Advance Directives For more information, please contact: [phone] * Full Code (Latest Code Status on File) Date Activated Date Inactivated Comments 08/04/2022 6:03 AM 08/04/2022 11:35 AM Care Teams Studio Director Relationship Specialty Start Date End Date Molly Louis MD [address] [place] [address] [address] [place] [address] PCP - General 08/22/24
--- OUTSIDE RECORDS SUMMARY | 2025-02-02 13:41 | XMS_ITS | Encounter Summary ---
Author Organization Healthcare Address [address] [place] [address] Care Team Providers Care Grove Worker Name Role Phone Pcp, No Primary Care Provider UnavailMolly Newman MD Primary Care Provider [phone] Angela Oleary RN Unavailable Unavailable Rey Wyatt MD Primary Care Provider [phone] Encounter Details Date Type Department Care Team (Late Contact Info) Description 01/22/2024 Orders Only External Location [address] [place] [address] Provider, External Social History Tobacco Use Types [...] Behavior (Lifetime) No 2:42 PM EDT Parmjit Rioc RN documented as of this encounter Plan of Treatment Upcoming Encounters Date Type Department Care Team (Late Contact Info) Description 02/10/2025 10:00 AM EDT Office Visit [facility] Endocrinology [address] [place] [address] Rachel Khan PA [address] [place] [address] 02/16/2025 1:20 PM EDT Office Visit [facility] [place] [address], [address] [place] [address] Courtney Torres MD [address] [place] [address] 03/15/2025 3:30 PM EDT Consult [facility] [address], 1[address] [place] [address] Kendy Sanchez APRN [address] [place] [address] 04/17/2025 2:00 PM EDT Office Visit [facility] Medicine Specialties [address], [address] [place] [address] Silverio Tam PA [address] [place] [address] documented as of this encounter [...] documented as of this encounter Care Teams Grove Worker Relationship Specialty Start Date End Date Pcp, No [address] [place] [address] PCP - General Family Medicine 01/22/24 02/08/24 Molly Louis MD [address] [place] [address] PCP - General Family Medicine 02/09/24 11/15/24 [place] [address] [place] [address] [address] [place] [address] PCP - General 11/16/24 Angela Oleary, RN [facility] Registered Nurse Cardiology 02/17/24 documented as of this encounter
--- OUTSIDE RECORDS SUMMARY | 2025-02-02 13:41 | XMS_ITS | Encounter Summary ---
Author Organization [employer] ([place], [place], [place], [place]) Address [address] [place] [address] Care Team Providers Care Superintendent Circus Name Role Phone Molly Louis MD Primary Care Provider [phone] Encounter Details Date Type Department Care Team (Late st Contact Info) Description 08/22/2024 Outside Orders [facility] Admitting [address] [place] [address] Silverio Tam, PA [address] [place] [address] Esophageal reflux (Primary Dx) Social History Tobacco [...] Date Guerrero rded Speak language other than South African at home Not on file 08/13/2023 Want [...] EIA Negative Negative 08/23/2024 10:57 PM EST [facility] Comment: Performed By: [facility] [address] [place] [address] Water Quality Technician: Wilber Pardo MD, PhD CLIA Number: [id number] Stool 08/22/2024 11:3 5 AM EST 08/22/2024 11:36 AM EST [facility] - GENERAL ORDERAB LES Final Result Performing Organization Address [facility] de Phone Number [facility] [address] [place] [address] * Calprotectin, Fecal by Immunoassay(SENDOUT) (08/22/2024 11:35 AM EST) Calprotectin, Fecal 26 <=49 ug/g 08/26/2024 8:14 AM EST [facility] Comment: REFERENCE INTERVAL: Calprotectin, Fecal by Immunoassay Less than 50 ug/g........Normal 50-120 ug/g..............Borderline elevated, test should be re-evaluated in 4-6 weeks. 121 ug/g or greater......Elevated Performed By: [facility] [address] [place] [address] Water Quality Technician: Wilber Pardo MD, PhD CLIA Number: [id number] Stool 08/22/2024 11:3 5 AM EST 08/22/2024 11:36 AM EST [facility] - GENERAL ORDERAB LES Final Result Performing Organization Address [facility] Co de Phone Number [facility] [address] [place] [address], [place] [phone] documented in this encounter Visit Diagnoses Diagnosis Esophageal reflux- Primary documented in this encounter Care Teams Superintendent Circus Relationship Specialty Start Date End Date Molly Louis MD [address] [place] [address] PCP - General 08/22/24 documented as of this encounter
--- OUTSIDE RECORDS SUMMARY | 2025-02-02 13:41 | XMS_ITS | Clinical Summary ---
Author Organization [employer] ([place], [place], [place], [place]) Address [address] [place] [address] Care Team Providers Care Helicopter Pilot Name Role Phone Molly Louis MD Primary Care Provider [phone] Allergies Active Allergy Reactions Criticality Noted Date [...] Date Guerrero rded Speak language other than Jamaican at home Not on file 08/13/2023 Want [...] Td or Tdap) 02/21/2020, 04/26/2002 COVID-19 VACCINE (2 - season) 2024 Influenza Vaccine (#1) 2025 Medical Devices Implanted Type Area Business Services Intern Device Identifier Shelf Expiration Date Model / Serial / Lot K-Wire [id number] - [id number] Implanted:Qty: 1 on 08/04/2022 by Rex Rene MD at [facility] IMPLANTS Right: Hand [employer] [id number] / / Wire K-Wire 1.6mm [id number] Implanted:Qty: 1 on 08/04/2022 by Rex Rene MD at [facility] IMPLANTS Right: Hand Waste Remedies GRP:Waste Remedies TECH / / Insurance [facility] Advance Directives For more information, please contact: [phone] * Full Code (Latest Code Status on File) Date Activated Date Inactivated Comments 08/04/2022 6:03 AM 08/04/2022 11:35 AM Care Teams Helicopter Pilot Relationship Specialty Start Date End Date Molly Louis MD [address] [place] [address] [address] [place] [address] PCP - General 08/22/24
[2025-02-03 11:22] LABS: Triiodothyronine (T3) Free 2.5 pg/mL (2.0-4.4)
== END 2025-02-01 23:59 | disposition home or self-care (01) ==
LOC: LAB.DROPOF 02-02 13:38
PROVIDERS: PCP Nurse Practitioner Family; Visit Provider Nurse Practitioner Family
DX: E05.90 Thyrotoxicosis, unspecified without thyrotoxic crisis or storm (principal); G90.A Postural orthostatic tachycardia syndrome [POTS]; Z11.59 Encounter for screening for other viral diseases; R14.0 Abdominal distension (gaseous); Z11.4 Encounter for screening for human immunodeficiency virus [HIV]
CPT/HCPCS: 80053; 80074; 82150; 82607; 83036; 83690; 83735; 84439; 84443; 84481; 85025; 87389

== ENCOUNTER 2025-02-04 08:12 | Emergency (ER) | payer MEDICAID, SELFPAY ==
--- OUTSIDE RECORDS SUMMARY | 2024-12-07 07:03 | XMS_ITS | Encounter Summary ---
Author Organization [facility] Address [address] [place] [address] Care Team Providers Care Aluminum Boat Assembly Supervisor Name Role Phone Angela Oleary RN Unavailable Unavailable Rey Wyatt MD Primary Care Provider [phone] Reason for Referral * Imaging (Routine) - Closed Specialty Diagnoses / Procedures Referred By Mili joe Referred To Contact Gastroenterology Diagnoses Hematochezia Abdominal pain, epigastric Procedures Patency Capsule Silverio Tam PA [address] [place] [address] Phone: tel: fax: Referral ID Status Reason Start Date Expiration Date V isits Requested Visits Authorized [id number] Closed Specialty Services Required 10/17/2024 04/18/2026 1 1 Reason for Visit * Imaging (Routine) - Closed Specialty Diagnoses / Procedures Referred By Contac t Referred To Contact Gastroenterology Diagnoses Hematochezia Abdominal pain, epigastric Procedures Patency Capsule Silverio Tam PA [address] [place] [address] Phone: tel: fax: Referral ID Status Reason Start Date Expiration Date V isits Requested Visits Authorized [id number] Closed Specialty Services Required 10/17/2024 04/18/2026 1 1 Encounter Details Date Type Department Care Team (Latest Contact Info) Description 12/07/2024 7:03 AM EDT - 12/07/2024 11:59 PM EDT Hospital Encounter [facility] [address] [place] [address] Estuardo Jon MD [address] [place] [address] Diarrhea, unspecified type (Primary Dx); [...] often do you attend chur ch or yazdanism services? Never 02/22/2024 Do you belong to any clubs o r organizations such as yarsanism groups, unions, fraternal or athletic groups, or [...] Recorded Patient Health Questionnaire-2 Score 0 12/15/2024 [facility] of Occupat ional [facility] - Occupational Stress Questionnaire Answer [...] place to sleep or slept in a alf (including now)? No 02/09/2024 [place] Depression Scale Answer Date Recorded [place] Depression Scale Total 6 08/08/2024 The thought [...] drink first t casi in the morning (EYE-CLEARING TUB WORKER) to steady your nerves or to get rid of a hangover? 0 07/16/2024 CAGE Questionnaire Score 0 024 Utilities Answer Date Recorded In the past 12 months has th e [employer], gas, oil, or water [employer] threatened to shut off services in your [...] capsule 1 07/18/2024 Blood Glucose Monitoring Suppl (deeplocaluch Verio Reflect) w/Device kit 04/14/2024 cholecalciferol (Vitamin D-3) 50 MCG (1999 [place]) capsule 10/25/2024 ibuprofen 600 MG tablet Take 1 tablet (600 mg) by mouth every 6 (six) hours if needed for mild pain. 30 tablet 1 07/18/2024 Lancets (deeplocaluch Delica Plus [id number]) [facility] 04/14/2024 ondansetron (Zofran) 4 MG tablet Take 1 tablet (4 mg) by mouth every 8 (eight) hours if needed for nausea or vomiting. 3 tablet 5 07/18/2024 GripeO Verio test strip 1 each by Other [...] day. 30 tablet 1 07/18/2024 sodium chloride (Rooks Nasal [place]) 0.65 % nasal spray Administer 1 spray [...] 10:00 AM EDT Office Visit [facility] Endocrinology [address] [place] [address] Rachel Khan, PA [address] [facility] 125 [place] [address] 02/16/2025 1:20 PM EDT Office Visit [facility] [place] [address] [facility], [address] [place] [address] Courtney Torres MD [address] [facility] [address] [place] [address] 03/15/2025 3:30 PM EDT [facility] [address] 1[address] [place] [address] Kendy Sanchez, STREET SWEEPER OPERATOR [address] [place] [address] 04/17/2025 2:00 PM EDT Office [facility] [address], [address] [place] [address] Silverio Tam PA [address] [place] [address] documented as of this encounter [...] documented as of this encounter Care Teams Aluminum Boat Assembly Supervisor Relationship Specialty Start Date End Date Rey Wyatt MD [address] [facility] [address] [place] [address] PCP - General 11/16/24 Angela Oleary, RN [facility] Registered Nurse Cardiology 02/17/24 documented as of this encounter
--- OUTSIDE RECORDS SUMMARY | 2024-12-15 14:30 | XMS_ITS | Encounter Summary ---
Author Organization [facility] Address [address] [place] [address] Care Team Providers Care Food Packer Name Role Phone Angela Oleary RN Unavailable Unavailable Rey Wyatt MD Primary Care Provider [phone] Reason for Referral * Consultation (Routine) - Authorized Specialty Diagnoses / Procedures Referred By Mili joe Referred To Contact Diagnoses Abdominal pain, epigastric Diarrhea, unspecified type Postural orthostatic tachycardia syndrome (POTS) Hematochezia Silverio Tam PA [id number] [place] [address] Phone: tel: fax: Referral ID Status Reason Start Date Expiration Date V isits Requested Visits Authorized [id number] Authorized 12/15/2024 06/16/2026 1 1 Reason for Visit * Reason Comments Hematochezia Encounter Details Date Type Department Care Team (Late st Contact Info) Description 12/15/2024 2:30 PM EDT Office Visit [facility] [address] [place] [address] [facility]io [facility] [address] [facility] [address] [place] [address] Weight loss (Primary Dx); Abdominal [...] week 02/22/2024 How often do you attend [facility] or mormon services? Never 02/22/2024 Do you belong to any clubs o r organizations such as religion groups, unions, fraternal or athletic groups, or [...] Recorded Patient Health Questionnaire-2 Score 0 12/15/2024 [facility] - Occupational Stress Questionnaire Answer Date [...] in a prison (including now)? 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 0 07/16/2024 CAGE Questionnaire Score 0 024 Utilities Answer Date Recorded In the past 12 months has th e [employer], gas, oil, or water company threatened to [...] disease. She is supposed also be seeing [facility] for [facility] POTs; but may also [...] min Stress: No Stress Concern Present (02/22/2024) [facility] [place] [facility] - Occupational Stress Questionnaire Feeling of Stress : Not at all Social Connections: Moderately Isolated (02/22/2024) Social Connection and Isolation Panel [NHANES] Frequency of Communication with Friends and Family: More than three times a week Frequency of Social Gatherings with Friends and Family: Once a week Attends Baptism Services: Never Active Member of Clubs or [...] day before colonoscopy Blood Glucose Monitoring Suppl (TapCrowd Verio Reflect) w/Device kit busPIRone (BUSPAR) 5 [...] mg, Oral, Every 6 hours PRN Lancets (MusiCaresTouch Delica Plus [id number]) misc methIMAzole (TAPAZOLE) 10 mg, Oral, Daily ondansetron (ZOFRAN) 4 mg, Oral, Every 8 hours PRN ondansetron ODT (ZOFRAN-ODT) 4 mg, Oral, Every 8 hours PRN MusiCaresTouch Verio test strip 1 each, As needed [...] tablet 1 tablet, Oral, Daily sodium chloride (Garrard Nasal Winigan) 0.65 % nasal spray 1 spray, Each [...] 04/26/2002 Influenza, injectable, quadrivalent, preservative free 04/29/2023 SunnyBump COVID-19 Vaccine (Blue Cap) 18+ 02/21/2021 MMR [...] EDT Office Visit [facility] [address] [place] [id number] Rachel Khan PA [address] [facility] [address] [place] [phone] 02/16/2025 1:20 PM EDT Office Visit [facility] [address], [address] [place] [address] Courtney Torres MD [address] [place] [address] 03/15/2025 3:30 PM EDT Consult [facility] [address] [place] [address] Kendy Sanchez, ECONOMICS INSTRUCTOR [address] [place] [address] 04/17/2025 2:00 PM EDT [facility] [address] [place] [address] Silverio Tam PA [address] [place] [address] Scheduled Referrals Name Type Priority [...] Detected Not Detected 12/19/2024 2:26 PM EDT [facility] Blood Venous blood specimen / Unknown Venipuncture / Unknown 12/15/2024 3:29 PM EDT 12/15/2024 3:30 PM EDT Narrative [facility] - 12/19/2024 2:26 PM [...] [facility]LE[facility] LAB BLOOD ORDERABLES Final Res ult [facility] [address] [place] [address] * T3 (12/15/2024 3:29 PM EDT) T3, Serum 177 87 - 187 ng/dL 12/15/2024 4:54 PM EDT [facility] Blood Venous blood specimen / Unknown Venipuncture / Unknown 12/15/2024 3:29 PM EDT 12/15/2024 3:30 PM EDT us Silverio [facility] LAB BLOOD ORDERABLES Final Res ult Performing Organization Address City/[facility]/ZIP Co de Phone Number [facility] [address] [place] [address] * (ABNORMAL) CBC and Differential (12/15/2024 3:29 PM EDT) [facility] WBC Count 5.38 3.70 - 10.30 10*3/uL LAB HEMATOLOGY METHOD 12/15/2024 4:38 PM EDT [facility] RBC Count 4.81 3.90 - 5.20 10*6/uL LAB HEMATOLOGY METHOD 12/15/2024 4:38 PM EDT [facility] HGB 12.6 11.2 - 15.7 g/dL LAB HEMATOLOGY METHOD 12/15/2024 4:38 PM EDT [facility] HCT 39.7 34.0 - 45.0 % LAB HEMATOLOGY METHOD 12/15/2024 4:38 PM EDT [facility] Platelet Count 311 155 - 369 10*3/uL LAB HEMATOLOGY METHOD 12/15/2024 4:38 PM EDT [facility] MCV 83 79 - 98 fL LAB HEMATOLOGY METHOD 12/15/2024 4:38 PM EDT [facility] MCH 26.2 26.0 - 32.0 pg LAB HEMATOLOGY METHOD 12/15/2024 4:38 PM EDT [facility] MCHC 31.7 30.7 - 35.5 g/dL LAB HEMATOLOGY METHOD 12/15/2024 4:38 PM EDT [facility] RDW 12.2 11.5 - 14.5 % LAB HEMATOLOGY METHOD 12/15/2024 4:38 PM EDT [facility] MPV 11.2 8.8 - 12.5 fL LAB HEMATOLOGY METHOD 12/15/2024 4:38 PM EDT [facility] nRBC 0.0 <=0.0 per 100 WBCs LAB HEMATOLOGY METHOD 12/15/2024 4:38 PM EDT [facility] Differential Type Automated LAB HEMATOLOGY METHOD 12/15/2024 4:38 PM EDT [facility] Neutrophils % 61 % LAB HEMATOLOGY METHOD 12/15/2024 4:38 PM EDT [facility] Lymphocytes % 32 % LAB HEMATOLOGY METHOD 12/15/2024 4:38 PM EDT [facility] Monocytes % 5 % LAB HEMATOLOGY METHOD 12/15/2024 4:38 PM EDT [facility] Eosinophils % 1 % LAB HEMATOLOGY METHOD 12/15/2024 4:38 PM EDT [facility] Basophils % 1 % LAB HEMATOLOGY METHOD 12/15/2024 4:38 PM EDT [facility] Immature Granulocytes % 0 % LAB HEMATOLOGY METHOD 12/15/2024 4:38 PM EDT [facility] Neutrophils Absolute 3.33 1.60 - 6.10 10*3/uL LAB HEMATOLOGY METHOD 12/15/2024 4:38 PM EDT [facility] Lymphocytes Absolute 1.70 1.20 - 3.90 10*3/uL LAB HEMATOLOGY METHOD 12/15/2024 4:38 PM EDT [facility] Monocytes Absolute 0.25(L) 0.30 - 0.90 10*3/uL LAB HEMATOLOGY METHOD 12/15/2024 4:38 PM EDT [facility] Eosinophils Absolute 0.03 0.00 - 0.50 10*3/uL LAB HEMATOLOGY METHOD 12/15/2024 4:38 PM EDT [facility] Basophils Absolute 0.05 0.00 - 0.10 10*3/uL LAB HEMATOLOGY METHOD 12/15/2024 4:38 PM EDT [facility] Immature Granulocytes Absolute 0.02 0.00 - 0.06 10*3/uL LAB HEMATOLOGY METHOD 12/15/2024 4:38 PM EDT [facility] Blood Venous blood specimen / Unknown Venipuncture / Unknown 12/15/2024 3:29 PM EDT 12/15/2024 3:30 PM EDT Narrative [facility] - 12/15/2024 4:38 PM EDT Therapeutic decision making should be based on absolute values, rather than percentages. us Silverio [facility] BLOOD ORDERABLES Final Res ult [facility] [address] [place] [address] * (ABNORMAL) Comprehensive Metabolic Panel, Plasma (12/15/2024 3:29 PM EDT) Glucose, Plasma 84 74 - 99 mg/dL 12/15/2024 4:54 PM EDT [facility] BUN, Plasma 8 7 - 21 mg/dL 12/15/2024 4:54 PM EDT [facility] Creatinine, Plasma 0.60 0.60 - 1.10 mg/dL 12/15/2024 4:54 PM EDT [facility] BUN/Creatinine Ratio 13 12/15/2024 4:54 PM EDT [facility] Sodium, Plasma 140 136 - 145 mmol/L 12/15/2024 4:54 PM EDT [facility] Potassium, Plasma 4.1 3.6 - 4.9 mmol/L 12/15/2024 4:54 PM EDT [facility] Chloride, Plasma 105 97 - 107 mmol/L 12/15/2024 4:54 PM EDT [facility] CO2, Plasma 21(L) 22 - 29 mmol/L 12/15/2024 4:54 PM EDT [facility] Anion Gap 14 6 - 16 mmol/L 12/15/2024 4:54 PM EDT [facility] Total Calcium, Plasma 9.4 8.9 - 10.2 mg/dL 12/15/2024 4:54 PM EDT [facility] Total Protein 8.1(H) 6.3 - 7.9 g/dL 12/15/2024 4:54 PM EDT [facility] Albumin, Plasma 4.6 3.5 - 5.2 g/dL 12/15/2024 4:54 PM EDT [facility] AST, Plasma 16 10 - 35 U/L 12/15/2024 4:54 PM EDT [facility] ALT, Plasma 23 10 - 35 U/L 12/15/2024 4:54 PM EDT [facility] Alkaline Phosphatase, Plasma 58 35 - 104 U/L 12/15/2024 4:54 PM EDT [facility] Total Bilirubin, Plasma 0.7 0.2 - 1.1 mg/dL 12/15/2024 4:54 PM EDT [facility] eGFRcr 127.1 mL/min/1.7 3m*2 12/15/2024 4:54 PM EDT [facility] Comment:Reported eGFRcr in m L/min/1.73m2 is based the CKD-EPI 2020 equation that does not use a race coefficient. Blood Venous blood specimen / Unknown Venipuncture / Unknown 12/15/2024 3:29 PM EDT 12/15/2024 3:30 PM EDT us Silverio [facility] BLOOD ORDERABLES Final Res ult [facility] [address] [place] [address] * Prothrombin Time/INR (12/15/2024 3:29 PM EDT) Prothrombin Time 13.7 12.0 - 14.3 sec LAB COAGULATION METHOD 12/15/2024 5:05 PM EDT [facility] INR 1.0 0.9 - 1.1 LAB COAGULATION METHOD 12/15/2024 5:05 PM EDT [facility] Blood Venous blood specimen / Unknown Venipuncture / Unknown 12/15/2024 3:29 PM EDT 12/15/2024 3:30 PM EDT Narrative [facility] - 12/15/2024 5:05 PM EDT OPTIMAL INR RANGES FOR PATIENT ON ORAL ANTICOAGULANT THERAPY Prevention of venous thromboembolism INR 2.0 to 3.0 In patients with heart disease: Atrial fibrillation INR 2.0 to 3.0 Valvular heart disease INR 2.0 to 3.0 Tissue heart valves INR 2.0 to 3.0 Mechanical prosthetic valves INR 2.5 to 3.5 Prevention of recurrent NH INR 2.5 to 3.5 [facility] BLOOD ORDERABLES Final Res ult [facility] [address] [place] [address] * (ABNORMAL) Brayan Henson IgG Ab (12/15/2024 3:29 PM EDT) EBV ANTIBODY TO VIRAL CAPSID ANTIGEN IGG 185.0(H) 0.0 - 21.9 U/mL 12/18/2024 11:11 AM EDT [facility] ([facility]) Blood Venous blood specimen / Unknown Venipuncture / Unknown 12/15/2024 3:29 PM EDT 12/15/2024 3:30 PM EDT Narrative [facility]) - 12/18/2024 11:11 AM EDT INTERPRETIVE INFORMATION: Brayan-Henson Virus Antibody to Viral Capsid Antigen, IgG 17.9 U/mL or less.......Not Detected 18.0-21.9 U/mL..........Indeterminate - Repeat testing in 10-14 days may be helpful. 22.0 U/mL or greater....Detected Performed By: [facility] [address] [place] [address] [employer] Supervisor: Wilber Pardo MD, PhD CLIA Number: [id number] [facility] BLOOD ORDERABLES Final Res ult [facility]) [address] [place] [address] * Brayan-Henson virus VCA, IgM (12/15/2024 3:29 PM EDT) EBV ANTIBODY TO VIRAL CAPSID ANTIGEN IGM <10.0 0.0 - 43.9 U/mL 12/18/2024 11:09 AM EDT [facility] ([facility]) Blood Venous blood specimen / Unknown Venipuncture / Unknown 12/15/2024 3:29 PM EDT 12/15/2024 3:30 PM EDT Narrative [facility]) - 12/18/2024 11:09 AM EDT INTERPRETIVE INFORMATION: Brayan-Henson Virus Antibody to Viral Capsid Antigen, IgM 35.9 U/mL or less.......Not Detected 36.0-43.9 U/mL..........Indeterminate - Repeat testing in 10-14 days may be helpful. 44.0 U/mL or greater....Detected Performed By: [facility] [address] [place] [address] [employer] Supervisor: Wilber Pardo MD, PhD CLIA Number: [id number] us [facility] BLOOD ORDERABLES Final Res ult [facility] [address] [place] [address] documented in this encounter Visit Diagnoses Diagnosis [...] documented as of this encounter Care Teams Food Packer Relationship Specialty [place] [address] [place] [address] [place] [address] PCP - General 11/16/24 Angela Oleary, RN [facility] Registered Nurse Cardiology 02/17/24 documented as of this encounter
--- OUTSIDE RECORDS SUMMARY | 2025-01-17 06:36 | XMS_ITS | Encounter Summary ---
Author Organization [facility] Address [address] [place] [address] Care Team Providers Care Industrial Twisting Machine Operator Name Role Phone Angela Oleary RN Unavailable Unavailable Rey Wyatt MD Primary Care Provider [phone] Reason for Referral * Imaging (Routine) - Closed Specialty Diagnoses / Procedures Referred By Mili joe Referred To Contact Gastroenterology Diagnoses Abdominal pain, epigastric Diarrhea, unspecified type Weight loss Hematochezia Procedures Capsule Endoscopy Silverio Tam PA [address] [address] Phone: tel: fax: Referral ID Status Reason Start Date Expiration Date V isits Requested Visits Authorized [id number] Closed Specialty Services Required 12/28/2024 06/29/2026 1 1 Reason for Visit * Imaging (Routine) - Closed Specialty Diagnoses / Procedures Referred By Mili joe Referred To Contact Gastroenterology Diagnoses Abdominal pain, epigastric Diarrhea, unspecified type Weight loss Hematochezia Procedures Capsule Endoscopy Silverio Tam PA [address] [facility] [address] [place] [address] Phone: tel: fax: Referral ID Status Reason Start Date Expiration Date V isits Requested Visits Authorized [id number] Closed Specialty Services Required 12/28/2024 06/29/2026 1 1 Encounter Details Date Type Department Care Team (Latest Contact Info) Description 01/17/2025 6:36 AM EDT - 01/17/2025 11:59 PM EDT Hospital Encounter PAV S Endoscopy [address] [place] [address] Cody Barnett MD [address] [place] [address] Abdominal pain, epigastric; Diarrhea, unspecified [...] often do you attend chur ch or islam services? Never 02/22/2024 Do you belong to any clubs o r organizations such as bahai groups, unions, fraternal or athletic groups, or [...] Recorded Patient Health Questionnaire-2 Score 0 12/15/2024 [facility] of Occupat ional Health - [...] a senior living (including now)? No 02/09/2024 [place] Depression Scale Answer Date Recorded [place] Depression Scale Total 6 08/08/2024 The thought [...] drink first t casi in the morning (EYE-PROFESSOR OF PATHOLOGY) to steady your nerves or to get rid of a hangover? 0 07/16/2024 CAGE Questionnaire Score 0 024 Utilities Answer Date Recorded In the past 12 months has th e [employer], gas, oil, or water [employer] threatened to shut off services in your [...] capsule 1 07/18/2024 Blood Glucose Monitoring Suppl (FlowMetricTouch Verio Reflect) w/Device kit 04/14/2024 cefdinir (Omnicef) [...] mild pain. 30 tablet 1 07/18/2024 Lancets (Key Ingredient Corporationuch Delica Plus Rynajr37N) [facility] 04/14/2024 ondansetron (Zofran) 4 MG tablet Take 1 tablet (4 mg) by mouth every 8 (eight) hours if needed for nausea or vomiting. 3 tablet 5 07/18/2024 ondansetron ODT (Zofran-ODT) 4 MG disintegrating tablet Dissolve 2 tablets on the tongue every 8 hours as needed for nausea or vomiting. 20 tablet 5 12/30/2024 FlowMetricToEvertale Verio test strip 1 each by Other [...] day. 30 tablet 1 07/18/2024 sodium chloride ([place] Nasal [place]) 0.65 % nasal spray Administer 1 spray [...] Medications Medication Instructions Blood Glucose Monitoring Suppl (FlowMetricTouch Verio Reflect) w/Device kit busPIRone (BUSPAR) 5 [...] mg, Oral, Every 6 hours PRN Lancets (FlowMetricTouch Delica Plus [id number]) misc methIMAzole (TAPAZOLE) 10 mg, Oral, Daily ondansetron (ZOFRAN) 4 mg, Oral, Every 8 hours PRN ondansetron ODT (ZOFRAN-ODT) 8 mg, Oral, Every 8 hours PRN FlowMetricTouch Verio test strip 1 each, As needed potassium & sodium phosphates (Phos-NaK) 280-160-250 MG packet 1 packet, Oral, Daily Vit-Fe Fumarate-FA ( Vitamins) 28-0.8 MG tablet 1 tablet, Oral, Daily propranolol (INDERAL) 20 mg, Oral, 3 times daily senna-docusate (Codi-Colace) 8.6-50 MG tablet 1 tablet, Oral, Daily sodium chloride ([place] Nasal [place]) 0.65 % nasal spray 1 spray, Each [...] min Stress: No Stress Concern Present (02/22/2024) [place] of Occupational Health - Occupational Stress Questionnaire Feeling of Stress : Not at all Social Connections: Moderately Isolated (02/22/2024) Social Connection and Isolation Panel Frequency of Communication with Friends and Family: More than three times a week Frequency of Social Gatherings with Friends and Family: Once a week Attends Yazdanism Services: Never Active Member of Clubs or [...] EDT Office Visit [facility] [address] [place] [phone] Rachel Khan PA [address] [facility] [address] [place] [phone] 02/16/2025 1:20 PM EDT Office Visit [facility] [place] [address] [facility], [address] [place] [address] Courtney Torres MD [address] [facility] [address] [place] [address] 03/15/2025 3:30 PM EDT Consult [facility] [address], [address] [place] [address] Kendy Sanchez APRN [address] [place] [address] 04/17/2025 2:00 PM EDT Office Visit [facility] Special[facility] [address], [address] [place] [address] Silverio Tam PA [address] [place] [address] documented as [...] as of this encounter Care Teams Industrial Twisting Machine Operator Relationship Specialty Start Date End Date Rey Wyatt MD [address] [place] [address] PCP - General 11/16/24 Angela Oleary, RN [facility] Registered Nurse Cardiology 02/17/24 documented as of this encounter
[2025-02-04] VITALS (10 sets, daily range): BP systolic 101–161; BP diastolic 68–100; PULSE 65–86; RESP 14–20; TEMP 36.7–36.9; O2SAT 99–100; BMI 26.4
--- NOTE | 2025-02-04 08:18 | ECG_ITS ---
APPROVED REPORT Exam: Resting ECG HR:71 bpm ECG Measurements Heart Rate 71 AXES AK 148 P 59 QRSd 77 QRS 62 QT 350 T -2 QTc 373 Conclusion SINUS RHYTHM NONSPECIFIC ST & T-WAVE ABNORMALITY No STEMI Electronically signed by : ALFONZO HANNA, 02/04/2025 17:13:00
--- OUTSIDE RECORDS SUMMARY | 2025-02-04 08:18 | XMS_ITS | Encounter Summary ---
Author Organization Healthcare Address [address] [id number] Care Team Providers Care Landscape Engineer Name Role Phone Angela Oleary RN Unavailable Unavailable Rey Wyatt MD Primary Care Provider [phone] Encounter Details Date Type Department Care Team (Late st Contact Info) Description 12/16/2024 Results Follow-Up [facility] Endocrinology [address] [place] [address] MunugotiHugohitha [address] [id number] Social History Tobacco Use Types Packs/Day Years [...] Patient Health Questionnaire-2 Score 0 12/15/2024 [facility] - [...] in a usp (including now)? No 02/09/2024 [place] Depression Scale Answer Date Recorded [place] Depression Scale Total 6 08/08/2024 The thought [...] first t casi in the morning (EYE-MANAGER DEMAND) to steady your nerves or to get [...] Description 02/10/2025 10:00 AM EDT Office Visit [facility] Endocr[facility]ology [address] [place] [address] Rachel Khan PA [address] [place] [id number] 02/16/2025 1:20 PM EDT Office Visit [facility] [address], [address] [place] [address] Courtney Torres MD [address] [facility] [address] [place] [address] 03/15/2025 3:30 PM EDT Consult [facility] [address] [place] [address] Kendy Sanchez APRN [address] [place] [address] 04/17/2025 2:00 PM EDT Office Visit [facility] Medicine Specialties [address] [place] [address] Silverio Tam PA [address] [place] [address] documented as of this encounter Goals Goal Patient Goal Type Associated Problems Recent Progress Patient-Stated? Author Delayed Delivery Care Plan CPM S22 PP LABOR (OBSTETRICS) No Open Scheduling, Background documented as of this encounter Results * T4, free (01/17/2025 8:47 AM EDT) Free T4, Plasma 0.8 0.8 - 1.7 ng/dL 01/17/2025 11:38 AM EDT [facility] Blood Venous blood specimen [...] Final Resu lt Performing Organization Address [facility] de Phone Number [facility] [address] [place] [address] * TSH (01/17/2025 8:47 AM EDT) Thyroid Stimulating Hormone, Plasma 1.83 0.40 - 4.20 uIU/mL 01/17/2025 11:38 AM EDT [facility] Blood Venous blood specimen / Unknown Venipuncture / Unknown 01/17/2025 8:47 AM EDT 01/17/2025 8:47 AM EDT Narrative [facility]ALTHCARE [facility] - 01/17/2025 11:38 AM EDT Trimester Specific Ranges TSH ( IU/mL) 1st Trimester 0.1 - 3.0 2nd Trimester 0.19 - 4.06 3rd Trimester 0.3 - 3.7 us Roland Wooten MD LAB BLOOD ORDERABLES Final Resu lt Performing Organization Address [facility] de Phone Number [facility] [address] [place] [address] documented in this encounter Visit Diagnoses Diagnosis [...] documented as of this encounter Care Teams Landscape Engineer Relationship Specialty Start Date End Date Rey Wyatt MD [address] [facility] [address] [place] [address] PCP - General 11/16/24 Angela Oleary, RN [facility] Registered Nurse Cardiology 02/17/24 documented as of this encounter
--- OUTSIDE RECORDS SUMMARY | 2025-02-04 08:18 | XMS_ITS | Data Portability ---
Author Organization [facility] & LeonardaMELINA ADMIN Address [address] [place] [id number] Care Team Providers Care Service Counselor Name Role Phone MOLLY BOLTON Primary Care Provider [phone] Assessment No assessment recorded. Plan of Treatment Reminders Order Date Submit Date Provider Last Modified By Organization Details Last Modified Time Details Appointments MENTAL [facility] 60 2024 11:00A FLAVIA HERNANDEZ Not available Not available Not available Lab urinalysi s, dipstick 2023 024 [email or web address] [facility]- Floor 2, 606, [address] [facility], [address], [place], [address], 12/14/2023 13:09:11 culture, urine 2023 024 [facility], [address] [place] [address] [place], [address], 12/14/2023 19:07:[address] [facility] referral - Anxiety not respondin g to buspirone . patient. Counselin g and medicatio n managemen t. 2023 024 KEATON [facility], [address] [place], [address], 04/05/2024 14:52:37 dermatolo gist referral 2023 024 [email or web address] [facility], [address] [place] [address], [address], 10/20/2023 12:02:18 Procedures None recorded. Surgeries None recorded. Imaging None recorded. Medication Orders doxylamin e 10 mg-pyrido xine (vit B6) 10 mg tablet,de layed release 2023 024 [facility], [address] [place] [address] [address], [place], [place], [id number], 12/14/2023 11:36:15 cephalexi n 500 mg tablet 2023 024 [facility], [address] [place] [address] [address], [place], [place], [id number], 02/02/2024 08:44:10 ondansetr on 4 mg disintegr ating tablet 2023 024 [facility], [address] [place] [address] [address], [place], [place], [id number], 12/14/2023 11:38:18 labetalol 100 mg tablet 2023 024 [facility], [address] [place] [address] [address], [place], [place], [id number], 02/02/2024 08:44:37 Patient TargetsNo targets recorded. Patient Instructions Encounter Date Encounter Id Patient Instructions Last Modified By Organization Details Last Modified Time 09/22/2023 [id number] Follow-up for yearly exam 02/2024 and prn [email or web address] Not available 09/22/2023 18:44:56 12/14/2023 [id number] Follow-up prn [email or web address] Not available 12/14/2023 21:37:32 02/02/2024 [id number] Follow-up prn (patient's current symptoms to be managed by cardiology and OB/MFM). 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 patient. Counseling and medication management. Referring Physician: Molly Bolton [facility], Encounter Date: 03/22/2024 Results Created [...] 2 - 3 MONTH S Not Available [facility] ([facility]) [address] [place] [address] [place], [address], 12/02/2023 17:18:42 12/02/19 24 12/02/2023 HCG BETA QUANT ITATI VE note Unles s other juan noted testi ng perfo rmed at: [facility] [address] [place] [address] Micah plascencia MD Not Available [facility] ([facility]Op [facility]) [address] [place] [address] [place], [address], 12/02/2023 17:18:42 12/14/19 24 12/14/2023 CULTU RE URINE W PRESU MP ID results [facility] 12-14 912 No Signi fican t Growt h at 1 Day [facility] 12-15 711 No Signi fican t Growt h at 2 Days Not Available [facility] ([facility]Op [facility]) [address] [facility] [place], [address], 12/16/2023 07:13:14 12/14/19 24 12/14/2023 CULTU RE URINE W PRESU MP ID note Unles s other juan noted testi ng perfo rmed at: [facility] [address] [place] [address] Micah plascencia MD Not Available [facility] ([facility]) [address] [place] [address] [place], [address], 12/16/2023 07:13:14 12/14/19 24 12/14/2023 urina lysis , dipst ick Leukocytes (reference range) small Not Available [facility]- Floor 2, 606 [address] [facility] [address] [place] [address], [address], 12/14/2023 11:20:55 12/14/19 24 12/14/2023 urina lysis , dipst ick Nitrite (reference range:) negati ve Not Available [facility]- Floor 2, 606 [address] [facility] [address] [place] [address], [address], 12/14/2023 11:20:55 12/14/19 24 12/14/2023 urina lysis , dipst ick Urobilinogen (reference range) 0.2 Not Available [facility] Care- Floor 2, [address] [place] [address], [address], 12/14/2023 11:20:55 12/14/19 24 12/14/2023 urina lysis , dipst ick Protein (reference range) 30 Not Available [facility] Care- Floor 2, 606 [address] [facility] [address] [place] [address], [address], 12/14/2023 11:20:55 12/14/19 24 12/14/2023 urina lysis , dipst ick pH (reference range 5-8.5) 5.5 Not Available [facility]- Floor 2, [address] [facility], [place], [address], 12/14/2023 11:20:55 12/14/19 24 12/14/2023 urina lysis , dipst ick Blood (reference range:) negati ve Not Available [facility]- Floor 2, [address] [facility], [place], [address], 12/14/2023 11:20:55 12/14/19 24 12/14/2023 urina lysis , dipst ick Specific [place] (reference range) 1.030 Not Available [facility] imary Care- Floor 2, [address] [facility], [place], [address], 12/14/2023 11:20:55 12/14/19 24 12/14/2023 urina lysis , dipst ick Ketone (reference range) modera te Not Available [facility]- Floor 2, [address] [facility], [place], [address], 12/14/2023 11:20:55 12/14/19 24 12/14/2023 urina lysis , dipst ick Bilirubin (reference range) small Not Available [facility] ary Care- Floor 2, [address] [facility], [place], [address], 12/14/2023 11:20:55 12/14/19 24 12/14/2023 urina lysis , dipst ick Glucose (reference range) negati ve Not Available [facility]- Floor 2, [address] [facility], [place], [address], 12/14/2023 11:20:55 12/14/19 24 12/14/2023 urina lysis , dipst ick Color (reference range: yellow-brown ) Brown Not Available [facility] Care- Floor 2, [address] [place] [address] [place], [address], 12/14/2023 11:20:55 11/20/19 24 11/20/2023 CT, abdom en + pelvi s, w/ contr ast No observ ation record ed. [address] Registration [address] [facility] [place], [address], 11/20/2023 22:38:19 01/12/20 24 01/12/2024 XR, chest No observ ation record ed. [address] (Registration ) [address] [place] [address] [place], [address], 01/12/2024 13:53:47 01/12/20 24 01/12/2024 US, obste tric No observ ation record ed. [address] (Registration ) [address] [place] [address] [place], [address], 01/12/2024 17:05:57 01/20/20 24 01/20/2024 elect rocar diogr am No observ ation record ed. [email or web address], [place], [address], 01/21/2024 12:30:49 01/22/20 24 01/22/2024 imagi ng inter preta tion No observ ation record ed. [address], [place], [address], 01/25/2024 11:42:05 01/22/20 24 01/22/2024 imagi ng inter preta tion No observ ation record ed. [email or web address] [address], [place], [address], 01/25/2024 11:41:58 02/06/20 24 02/05/2024 elect rocar diogr am, routi ne ECG, 12 leads min No observ ation record ed. [address], [place], [address], 02/07/2024 14:15:54 04/27/20 24 04/27/2024 rhyth m strip , EKG* No observ ation record ed. [email or web address] [facility] [address], [place], [address], 04/28/2024 15:07:12 07/27/19 25 07/27/2024 imagi ng inter preta tion No observ ation record ed. [facility] [address], [place], [address], 07/28/2024 10:45:22 07/27/19 25 07/27/2024 elect sherryjosh peñamichele lema No observ ation record ed. [email or web address] [facility] [address], [place], [address], 07/28/2024 10:45:06 Result Notes None recorded. Problems Name Problem SNOMED Code Status Onset Date Resolution Date Notes Provider Name and Address Organization Details Recorded Time Gilbert's syndrome 08748152 Active 2022 [facility] Available [facility] 05:51:07 Gallstone 046692705 Active 2022 Not Available [facility] 4 05:51:07 Fracture of hand 20510502 Active 2022 Had two pins placed of the fifth metatar petr. Not Available [facility] 4 05:51:07 Sore throat 755802485 Active 2022 Not Available [facility] 4 05:51:07 Hematochezia 957962821 Active 2022 Not Available [facility] 4 05:51:07 Diarrhea 69065841 Active 2022 Not Available [facility] 4 05:51:07 Nausea 606911006 Active 2022 Not Available [facility] 4 05:51:07 Generalized abdominal pain 154429837 Active 2022 Not Available [facility] 4 05:51:07 Problem Notes None recorded. Procedures Surgical History Date Name Laterality Status Provider Name and Address Organization Details Recorded Time 07/31/19 24 laparoscopic cholecystectomy completed Teresa KRISHNAN - [facility] [place] 08/03/2023 09:25:16 11/09/19 23 Date of Last Pap Smear completed Deb Clark [place] - [facility] [place] 05/28/2023 14:21:22 07/27/19 23 Other completed Shani KRISHNAN - [facility] [place] 08/20/2023 13:45:01 03/03/20 22 EGD/Endoscopy completed Kymberly Gar [place] - [facility] [place] 05/19/2023 08:29:18 07/27/19 02 ENT Surgery completed Shani Nailso [place] - [facility] [place] 08/20/2023 13:45:01 07/27/19 01 ENT Surgery completed Shani Nailso [place] - [facility] [place] [facility] [place] 08/20/2023 13:45:01 Tonsillectomy completed Shani KRISHNAN - [facility] [place] 07/08/2023 12:32:45 Dilation and Curettage completed Deb Clark [place] - [facility] [place] 01/26/2024 09:25:24 Imaging Results None recorded. Procedure Notes None recorded. Medical Equipment None Reported. Allergies Allergen ID Allergen Name Allergen Category Reaction Reaction Severity Criticality Documentation Date Start Date Code Code System Note Provider Name and Address Organization Details Recorded Time 665532 cinnamon preparati on food,medi cation other severe Not available 12/09/2023 05074 5 RxNorm throa t aurelio s Deb Montanae null, [place] - [facility] [place] 4 09:50:32 79630 Augmentin medicatio n rash Not available Not available 09/18/2022 90290 2 RxNorm Anmol Pelayo null, [place] - [facility] [place] 3 12:59:17 98907 Product containin g penicilli n (product) medicatio n Not available Not available Not available 09/18/2022 94111 8001 SNOMED Anmol Pelayo null, [place] - [facility] - [place] [facility] [place] 3 12:59:25 Medications Name Sig Start Date [...] blood by Pulse oximetry Heart rate Systolic And Diastolic Provider Name and Address Organization Details Last Updated DateTime 4 162.56 cm 24.6 kg/m2 30240.1 5 g 98.2 [degF] 99 % 99 % 98 /min 110/80 mm[Hg] Francy SUMMERS [facility] [place] 4 15:41:55 Date Recorded Body height Body mass index (BMI) Body weight Body temperature Oxygen saturation Oxygen saturation in Arterial blood by Pulse oximetry Heart rate Systolic And Diastolic Provider Name and Address Organization Details Last Updated DateTime 4 162.56 cm 23.6 kg/m2 53656.8 7 g 98.5 [degF] 97 % 97 % 88 /min 140/80 mm[Hg] Francy SUMMERS [facility] [place] 4 10:46:22 Date Recorded Body height Body mass index (BMI) Body weight Body temperature Oxygen saturation Oxygen saturation in Arterial blood by Pulse oximetry Heart rate Systolic And Diastolic Provider Name and Address Organization Details Last Updated DateTime 4 162.56 cm 20.8 kg/m2 08755.6 8 g 98.6 [degF] 99 % 99 % 100 /min 110/70 mm[Hg] Francy SUMMERS [facility] [place] 4 08:35:15 Date Recorded Body height Body mass index (BMI) Body weight Body temperature Oxygen saturation Oxygen saturation in Arterial blood by Pulse oximetry Heart rate Systolic And Diastolic Provider Name and Address Organization Details Last Updated DateTime 4 162.56 cm 20.4 kg/m2 24972.4 9 g 98.7 [degF] 100 % 100 % 76 /min 110/60 mm[Hg] Francy SUMMERS [facility] [place] 4 08:35:40 Date Recorded Body height Body mass index (BMI) Body weight Body temperature Oxygen saturation Oxygen saturation in Arterial blood by Pulse oximetry Heart rate Systolic And Diastolic Provider Name and Address Organization Details Last Updated DateTime 4 162.56 cm 20.8 kg/m2 99376.6 8 g 98.8 [degF] 99 % 99 % 98 /min 100/60 mm[Hg] [place] SUM[facility] [place] 09:07:24 Social History Question Answer Notes LastModified by Organizat ion Details LastModified Time Tobacco Smoking Status Former Smoker Francy Holland [facility], [place] - [facility] - [place] [facility] [place] 03/17/2023 09:23:30 Do You Have An Advance Directive? No [email or web address] Information not available 05/28/2023 Are You Blind Or Do You Have Difficulty Seeing? No [email or web address] Information not available 05/28/2023 When Did You Quit Smoking? 1-5yearssinc elastcigaret te Information not available 08/13/2023 Are You Passively Exposed To Smoke? No [email or web address] Information not available 05/28/2023 How Many Years Have You Smoked Tobacco? 12 Information not available 03/17/2023 Sex: Female Functional Status Question Answer Note LastModified by Organizat ion Details LastModified Time Do you use any illicit or recreational drugs? No Information not available 03/17/2023 Do you or have you ever used any other forms of tobacco or nicotine? Yes Information not available 08/13/2023 What is your level of alcohol consumption? None [email or web address] Information not available 03/17/2023 Do you or have you ever used e-cigarettes or vape? Current user of electronic cigarettes Information not available 08/13/2023 What is your exercise level? Occasional Information not available 05/28/2023 Mental Status None recorded. Family History Relationship Description Onset Age of this Age Resolved Age Notes LastModified by Organization Details LastModified Time Father Family history of malignant neoplasm [email or web address] Not available 07/12/2024 08:20:21 Father Myocardial infarction [...] Not available 2023 11:15:11 Sister Heart disease [email or web address] Not available 2023 13:44:57 Unspecified Relation Family history of stroke [email or web address] Not available 2023 08:20:21 Medical History Condition Response Coronary Artery Disease N Other Y None N Gout N Kidney Stones N Blood Diseases N Hyperthyroidism N Blood Transfusion N Breast Cancer N Hypothyroidism N Lung Disease N Depression N COPD N Defects or Inherited Disease N Developmental [...] Problems N GI Problems N ADD/ADHD N Skin Problems N Eating Disorder N Anemia N Constipation N Mental Illness N Ovarian Cancer N Diabetes N Bedwetting N Seizures/Epilepsy N Tuberculosis N Eczema N Back Problems Y Diverticulitis N Abuse/Domestic Violence N Asthma N Reflux/GERD N Jaundice N [...] Recorded Time IPV 2 completed Not Available [facility] 08/05/2023 05:51:08 MMR 2 completed Not Available [facility] 08/05/2023 05:51:08 COVID-19 vaccine, vector-nr, rS-Ad26, PF, 0.5 mL 1 completed Not Available [facility] 08/05/2023 05:51:08 Tdap 0 completed Not Available [facility] 08/05/2023 05:51:08 varicella 1 completed Not Available [facility] 08/05/2023 05:51:08 HPV, quadrivalent 1 completed Not Available [facility] 08/05/2023 05:51:08 Hep A, ped/adol, 2 dose 1 completed Not Available [facility] 08/05/2023 05:51:08 Hep A, ped/adol, 2 dose 0 completed Not Available [facility] 08/05/2023 05:51:08 DTaP, unspecified formulation 2 completed Not Available [facility] 08/05/2023 05:51:08 Past Encounters Encounter ID Performer Location Encounter Start Date Encounter Closed Date Diagnosis/Indication Diagnosis SNOMED-CT Code Diagnosis ICD10 Code Diagnosis Note [id number] Marizol Paez MD [facility] [place] [address] [facility] [place] [id number] 09/18/2022 12:53:09 09/18/2022 13:34:47 Pain in throat 406607895 R07.0 Strep swab in the office today was negative. Suggest this is a viral issue and will take time to resolve. Nausea 436789634 R11.0 Likely due to her underlying illness. Son also recently diagnosed with a viral illness. She understand s the importance of pushing fluids. Gilbert's syndrome 56704 000 E80.4 Pityriasis versicolor 56 253892 B36.0 Suggested OTC lamisil cream. [id number] BOOKER OLIVARES [facility]- Floor 1, [address] [facility] [address] [place] [id number] 11/26/2022 12:14:40 11/26/2022 12:41:53 Nail deformity 810582210 L60.8 no obvious sign of fungal infection. Nail loss may be related to initial injury. Continue to monitor at home, follow up with any new or worsening symptoms. [id number] Cassie Jimenez [facility] Immediate Care- Floor 1, [address] [facility],[place] [address] [place] [id number] 01/21/2023 07:59:03 01/21/2023 08:28:49 Cough 85565955 R05.1 Generalize d aches and pains 08210856 R52 Exposure t o Influenzavirus 542031417 Z20.828 Nausea 912664430 R11.0 Viral syndrome 636592884 B34.9 [id number] Saskia Soriano APRN [facility] Immediate Care- Floor 1, [address] [place] [address],[facility] [address] [place] [id number] 02/10/2023 15:16:39 02/10/2023 15:42:50 Sore throat 463893517 J02.9 We will contact with results of throat culture when available and treat if indicated. Increase fluid intake until better, Tylenol/Mo juan ramon as needed, salt water gargle twice a day. Follow up with any new or worsening symptoms. Discard toothbrush as we discussed. Exposure t o SARS-CoV-2 174222384 Z20.822 Continue with hand hygiene, social distancing and vaccines as recommende d by PCP. Viral syndrome 176337096 B34.9 Possibly HFMD, discussed supportive measures. [id number] Molly Bolton MD [facility] Primary Care- Floor 2, [address] [place] [address],[facility] [address] [place] [id number] 03/17/2023 09:03:37 03/17/2023 10:09:55 Irritable bowel syndrome 39731472 K58.9 Continue zofran prn nausea. Referral to GI for futher work-up. 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 Continue meloxicam and tylenol. Referring to Ortho Spine as precaution . Follow-up in 6 weeks and prn [id number] Indu Decker NP [address] [place] [address] 05/19/2023 07:54:57 05/19/2023 16:07:23 Hematochezia 523597244 K92.1 6-7 month history hematochez ia, describes large amount at times. Recommend labs today. Recommend colonoscop y to further evaluate r/o colitis, internal hemorrhoid s, other. Pt is scheduled for Colon 06/25 @ 9:00 AM Diarrhea 73480875 R19.7 History of alternatin g constipati on diarrhea. Experienci ng worsening diarrhea over the past 2 weeks. Plan for x-ray abdomen KUB to rule out underlying stool burden. Recommend colonoscop y with random colon biopsies to rule out underlying colitis, other. Plan for labs today. Patient's brother with history of Crohn's. Nausea 977018989 R11.0 Daily episodes of nausea ongoing for several years. EGD reviewed 03/03/[address] Leslie appeared normal, pathology negative for H pylori or celiac. Recommend gallbladde r US to further evaluate. Generalize d abdominal pain 359952572 R10.84 Episodes of upper abdominal pain radiating down throughout her abdomen. Plan for gallbladde r ultrasound as above as well as labs. Recommend colonoscop y to further evaluate. No etiology identified on EGD from 02/2022. 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 Continue meloxicam (if makes to drowsy can take tylenol or ibuprofen instead, discussed taking NSAIDs with food so as not to upset her stomach). Continue amitriptyl line (discussed that it is ok for her to take 10-20 mg rather than 5 mg). Nausea 735501530 R11.0 Following with GI and has upcoming HIDA scan and colonoscop y scheduled. Continue zofran prn. [id number] Francy Su, DO [place] [facility] [facility] - [address], [address] [place] [address] 07/09/2023 13:46:06 07/09/2023 15:31:08 Chronic cholecystitis 59806504 K81.1 I do feel that she is [...] low-fat diet. Irritable bowel syndrome with diarrhea 778133491 K58.0 I do think she has irritable bowel syndrome with diarrhea we did discuss that laparoscop ic cholecyste ctomy will probably not take care of all of those symptoms. She understand s. 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 Suspect possible pityriasis alba vs. pityriasis versicolor . Will treat for both possibilit ies with combinatio n steroid-an tifungal cream (as planning to have abdominal surgery soon, suggested just treating her back at this time and waiting until wounds heal after surgery to treat her abdomen. Chronic cholecystitis 20 526758 K81.1 Patient scheduled for cholecyste ctomy 07/24/23 Low back p ain co-occurrent with neuralgia of right sciatic nerve 0868488409 53205 M54.41 She is now following with Orthopedic s and will do PT after she has her gallbladde r surgery. [id number] Saskia Soriano APRN [facility] Immediate Care- Floor 1, [address],[place] [address] [place] [id number] 07/24/2023 08:07:21 07/24/2023 08:47:22 Sore throat 670516163 J02.9 Suspect viral etiology. Continue with symptom management , salt water gargles BID. Follow up if no improvemen t in 3-5 days or sooner with worsening symptoms. Cough 04446977 R05.1 Suspect that this is viral. Recommend [...] in 7-10 days, sooner with worsening symptoms. [id number] Francy Su DO [place] [facility] [facility] - [address], [address] [place] [address] 08/13/2023 11:07:19 08/17/2023 14:08:53 Postoperative visit 215676483 Z48.89 Status post laparoscop ic cholecyste ctomy she is doing well. We discussed that if her loose stools continue, I can give her cholestyra mine if needed. She is going to let me know. She should continue lifting restrictio ns for another couple of weeks. She is to let me know if she needs to see me again. [id number] Molly Bolton MD [facility] Primary Care- Floor 2, [address] [place] [address],[place] [address] [place] [id number] 09/22/2023 14:35:17 09/22/2023 16:07:30 Generalized rash [id number] R21 Suspected pityriasis alba. Have treated with both topical steroids and antifungal s without resolution . Referring to dermatolog y for further evaluation . History of cholecystectomy 300699420 Z90.49 Recovering well from recent cholecyste ctomy for chronic cholecysti tis. Low back p ain co-occurrent with neuralgia of right sciatic nerve [id number] 67956 M54.41 Following w/ spine surgeon Dr. Lobato who has ordered back braces and PT. Insomnia [id number] G47.0 0 Ok to use benadryl prn sleep. I have prescribed amitriptyl ine in past for her sciatica and said she might try this prn in place of the benadryl as it might also help with sleep. [id number] Molly Bolton MD [facility] Primary Care- Floor 2, 606 [facility],[address] [place] [address] 12/14/2023 10:01:42 12/14/2023 12:08:18 Abnormal urinalysis [id number] R82.90 Hospital UA w positive LE and UA today in clinic with small LE. Given symptoms of abdominal cramping and ongoing diarrhea, will treat for possible UTI per below and send for culture Acute urin glenn tract infection [id number] N39.0 Will start treatment with keflex as and follow-up urine culture and adjust antibiotic s prn Palpitations 91036079 R0 0.2 Stop metoprolol and start labetalol. Patient has upcoming cardiology appt. Cardiac testing including troponins and TTE have so far been reassuring . Holter monitor results pending. Nausea and vomiting 1693 1999 R11.2 Start doxylamine -pyridoxin e for likely related nausea. Nausea 055557775 R11.0 Discussed trying doxylamine first for nausea and if breakthrou gh nausea can use zofran prn (class B in , likely safe) test positive [id number] Z32.01 Patient has follow-up US later this week (elevated HCG but US has yet to confirm IUP) [id number] Molly Bolton MD [facility] Primary Care- Floor 2, [address] [place] [address],[address] [address] 02/02/2024 08:22:33 02/02/2024 09:24:10 Impaired mobility 78731804 Z74.09 Due to her POTS (becomes lightheade [...] as well. Postural o rthostatic tachycardia syndrome 733593781 G90.A Receiving periodic iv fluid injections ordered by OB and following with cardiology Tachycardia 7054581 R00. 0 [place] to be 2/2 to dehydratio n and POTS. Currently wearing holter monitor. Following with cardiology . Continue metoprolol . Hyperemesi s gravidarum 31055517 O21.0 Continue zofran. Following with OB Second tri mester 61329127 Z34.92 Following with OB. Anxiety 22194515 F41.9 Continue buspirone and hydroxyzin e prn. [id number] Molly Bolton MD [facility] Primary Care- Floor 2, 606 225 [facility] [address] [facility] [address] 03/22/2024 08:25:27 03/23/2024 07:20:01 Anxiety disorder 580482213 F41.9 Continue buspirone. Collected gene sight testing today to help guide medication management (with plan to forward to her provider when establishe s). Referring to for medication management and counseling . Postural o rthostatic tachycardia syndrome 734644773 G90.A Receiving periodic iv fluid infusions ordered by OB and following with cardiology Anemia 391556544 D64.9 Iv iron infusions being considered by her OB Hematochezia 919042849 K 92.1 Following with GI. Scopes being post-poned until after she delivers. [id number] FLAVIA KIRBY ic Intervent ions at [place] [address] [facility] [place] [address] 05/11/2024 10:46:21 05/18/2024 10:10:23 [id number] Molly Bolton MD [facility] Primary Care- Floor 2, 606 225 [facility] [address] [facility] [place] [address] 07/12/2024 08:20:01 07/13/2024 07:24:42 Postural orthostatic tachycardia syndrome [id number] G90.A Continues to have issues with standing, [...] Continues to follow with cardiology . Anxiety 72226636 F41.9 Continues on buspirone. 99693817 Z33.1 Following w/ obstetrics /MFM with plan for upcoming induction due to her POTS. [id number] FLAVIA KIRBY Therapeuheath ic Intervent ions at [place] [address] [facility] [place] [address] 06/14/2024 10:38:56 06/14/2024 12:25:13 [id number] FLAVIA KIRBY Therapeut ic Intervent ions at [address] [place] [address] 09/05/2024 08:00:30 09/05/2024 10:08:29 [id number] FLAVIA KIRBY Therapeut ic Intervent ions at [address] [place] [address] 10/04/2024 09:53:14 10/04/2024 11:21:35 [id number] FLAVIA KIRBY Therapeut ic Intervent ions at [address] [place] [address] 11/09/2024 11:15:42 11/15/2024 08:27:33 [id number] FLAVIA KIRBY Therapeuheath ic Intervent ions at [address] [place] [address] 12/13/2024 09:47:41 12/15/2024 15:09:13 Health Concerns Section Related Observation LastModified by Organization Detai ls LastModified Time None Recorded Concern Status LastModified by Organization Details LastModified Time None Recorded Advance Directives Directive N: Payers Insurance Date Sequence Insurance Name Policy Number Policy Zaidi Covered Member ID Zaidi Member ID Guarantor Name 03/23/2024 1 [employer] [id number] Francy Miller [facility] [id number] Francy Miller [facility] 02/13/2024 [facility] Unknown Francy Miller [facility] 01/12/2025 1 [facility] (MEDICAID HMO) Francy Miller [facility] [id number] Francy Miller [facility] 04/17/2023 2 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 I personally reviewed [facility] ER notes from 12/04/23 and 12/10/23 #PalpitationsPatient seen the above dates for palpitations at [facility] seen at [facility] in between these two ER visitsHRs up to 130s at first ER visit with otherwise normal vitalsShe was given 1L fluid bolus and phenergan at first ER visitAt the [facility] visit in between had unremarkable cardiac echo and negative CTA chestAt 2nd [facility] ER visit HRs up to 120s with otherwise normal vitalsWas given 1L fluid bolus, po metoprolol, and iv zofranReferral was made to Cardiology Dr. Virgen and outpatient cardiac monitoringLabs from 12/04/23 notable for CMP with slightly low K of 3.2, negative troponin, BHCG of 1193, negative UDS, unremarkable CBC, bland UALabs from 12/10/23 notable [place] [address], negative troponin, CMP with slightly elevated tbili [...] inSays she will be able to see background check coordinator in [facility] sooner than she can get into cardiology here Molly Bolton MD [address] [place] [address] Drive, [address], [place], [address], [place] - [facility] & [place] 12/14/2023 21:40:31 4 text/htm pj Delarosa is a 23 yo female with anxiety and depression, IBS-D, Gilbert's syndrome, chronic low back pain with sciatica, who present for hospital and ER follow-ups. She is accompanied to clinic by her husbandPatient [facility] and also went to ER 01/31/24 for elevated heart rate and n/v.Labs overall unremarkable (negative troponin, CMP without significant abnormalities, normal CBC 01/24/24 at [facility] and unremarkable CMP, CBC, lactic acid, lipase, and UA 01/31/24 at )Had has 2 OB US at 01/23/24 12 weeks gestation and had bedside US on 01/31/24 showing IUP with FHR of 152Was discharged on zofran, buspirone, hydroxyzine and metoprolol from [facility], felt to be having sinus tachycardia, possible POTs, and panic attacksFelt to have sinus tachycardia and dehydration at ER and given LR and zofran and prescribed pepcid at dischargeUK note mentioned patient currently wearing Holter monitor and hadShe says she continues to have some palpitations and dizziness with standingSays she is bed bound and wheelchair bound (she says that her background check coordinator made these specifications)Currently off workHaving a lot of nausea as well as diarrheaShe is getting banana bag infusions three times per week (ordered by her OB in [place]) and has been referred to high school foreign language tutor at [facility] wearing Holter monitorReports HRs up to 170s-180s and sometimes looking like SVT on monitorsOn 25 mg metoprolol dailyShe is following with Dr. [facility] in [place] and has follow-up with them todaySays Holter [...] OB to fill out Molly Bolton MD [address] [place] [address] Drive, [address], [place], [address], [place] - [facility] - [place] & [place] 02/02/2024 12:02:53 4 text/htm pj Delarosa is [...] drink and certain foodsContinues to follow with background check coordinator who has referred her to immunology (she is hoping to be tested for mcas)Says she has not heard from in [place] that I have referred her to (she [...] some with the POTs Molly Bolton MD [address] [place] [address], [address], [place], [address], [facility] - [place] [facility] & [place] 03/22/2024 17:52:00 4 text/htm pj Delarosa is [...] with immunology, cardiology, MFM, and GI at [facility] time I saw patient in person was [...] on buspirone (says currently being prescribed by Geno and hopes that I will take over the prescription after she delivers) Molly Bolton MD [address] [place] [address], [address], [place], [address], [facility] & [place] 07/12/2024 12:23:22 OBGyn Episode No OBEpisode recorded.
--- OUTSIDE RECORDS SUMMARY | 2025-02-04 08:18 | XMS_ITS | Encounter Summary ---
Author Organization Healthcare Address [address] [place] [address] Care Team Providers Care Wax Pattern Assembler Name Role Phone Angela Oleary RN Unavailable Unavailable Rey Wyatt MD Primary Care Provider [phone] Encounter Details Date Type Department Care Team (Late st Contact Info) Description 12/09/2024 Orders Only [facility]ties [address], [address] [place] [address] Silverio Tam PA [address] [place] [address] Social History Tobacco Use Types [...] Recorded Patient Health Questionnaire-2 Score 0 11/[facility]/2024 [facility] Questionnaire Answer Date Recorded [...] in a alf (including now)? 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 0 07/16/2024 CAGE Questionnaire Score 0 024 Utilities Answer Date Recorded In the past 12 months has th e [place] [employer], gas, oil, or water company threatened to [...] EDT Office Visit [facility] [address] [place] [address] Rachel Khan PA [address] [place] [address] 02/16/2025 1:20 PM EDT Office Visit [facility] [place] [address], [address] [place] [address] Courtney Torres MD [address] [place] [address] 03/15/2025 3:30 PM EDT Consult [facility] [address] [place] [address] Kendy Sanchez APRN [address] [place] [address] 04/17/2025 2:00 PM EDT Office Visit [facility] [address], [address] [place] [address] Silverio Tam PA [address] [place] [address] documented as of this encounter [...] documented as of this encounter Care Teams Wax Pattern Assembler Relationship Specialty Start Date End Date Rey Wyatt MD [address] [facility] [address] [place] [address] PCP - General 11/16/24 Angela Oleary, RN [facility] Registered Nurse Cardiology 02/17/24 documented as of this encounter
--- OUTSIDE RECORDS SUMMARY | 2025-02-04 08:18 | XMS_ITS | Encounter Summary ---
Author Organization Healthcare Address [address] [place] [address] Care Team Providers Care Sourcing Assistant Name Role Phone Angela Oleary RN Unavailable Unavailable Rey Wyatt MD Primary Care Provider [phone] Encounter Details Date Type Department Care Team [...] you attend [facility] or yazidism services? Never 02/22/2024 Do you [...] Recorded Patient Health Questionnaire-2 Score 0 11/16/2024 [facility] - [...] in a long-term (including now)? 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) to steady your nerves or to get [...] Visit [facility] [address] [place] [address] Rachel Khan PA [address] [place] [address] 02/16/2025 1:20 PM EDT Office Visit [facility] [place] [address] [facility], [address] [place] [address] Courtney Torres MD [address] [place] [address] 03/15/2025 3:30 PM EDT Consult [facility] [address] [place] [address] Kendy Sanchez APRN [address] [place] [address] 04/17/2025 2:00 PM EDT Office Visit [facility] Medicine Specialties [address], [address] [place] [address] Silverio Tam PA [address] [place] [address] documented as of this encounter [...] documented as of this encounter Care Teams Sourcing Assistant Relationship Specialty Start Date End Date Rey Wyatt MD [address] [place] [address] PCP - General 11/16/24 Angela Oleary, RN [facility] Registered Nurse Cardiology 02/17/24 documented as of this encounter
--- OUTSIDE RECORDS SUMMARY | 2025-02-04 08:18 | XMS_ITS | Data Portability ---
Author Organization [facility] [employer] [place] [facility] [place] Address [address] [place] [address] Assessment Encounter Date Assessment Date Assessment LastModified by Organization Details LastModified Time 12/18/2023 12/18/2023 Patient is ___weeks . Discussed plan. [email or web address] Not available 12/17/2023 10:25:59 Plan of Treatment Reminders Order Date Submit Date Provider Last Modified By Organization Details Last Modified Time Details Appointments None recorded. Lab urinalysis , dipstick [address], [address] [place] [address], [phone], 4 17:15:18 unlisted lab - qnatal(R) advanced 2023 024 [facility], [address], [place], [address], 4 01:26:17 rapid strep group A, throat 2023 024 [email or web address] [facility], [address] [place] [address], [place], [address], 4 13:42:01 urinalysis , dipstick 2023 024 [facility], [address] [place], [address], 4 10:47:53 Referral None recorded. Procedures None recorded. Surgeries None recorded. Imaging None recorded. Medication Orders cefdinir 300 mg capsule 2023 024 [email or web address] [facility], [address] [place] [address] [address], [place], [place], [id number], 4 16:54:44 Patient TargetsNo targets recorded. Patient Instructions Encounter Date Encounter Id Patient Instructions Last Modified By Organization Details Last Modified Time 01/06/2024 [id number] Increase fluid intake, take tylenol and motrin for pain/fever as needed, advised to take medication as prescribed to eradicate bacterial infection and reduce chances of antibiotic resistance. Change toothbrush in 24 hours. May return to school 24 hours after antibiotic therapy. Follow up with PCP or OB for symptoms not improving. Go to ER with any concerning symptoms. [email or web address] Not available 01/06/2024 14:35:51 Reason for Referral None Reported. Results Created Date Observation Date Name Description Value Unit Range Abnormal Flag Note LastModifiedBy Organization Detail LastModifiedTime 12/09/19 24 12/10/2023 HEPAT IC FUNCT ION PANEL protein, total 7.7 g/dL 6.1-8. 1 normal Not Available [facility] [place] [facility] [address] [facility] [place], [address], 12/10/2023 11:16:57 12/09/19 24 12/10/2023 HEPAT IC FUNCT ION PANEL albumin 4.7 g/dL 3.6-5. 1 normal Not Available [facility] [address], [place], [address], 12/10/2023 11:16:57 12/09/19 24 12/10/2023 HEPAT IC FUNCT ION PANEL globulin 3.0 g/dL_ (calc ) 1.9-3. 7 normal Not Available [facility] [place] [facility] [address] [facility], [place], [address], 12/10/2023 11:16:57 12/09/19 24 12/10/2023 HEPAT IC FUNCT ION PANEL albumin/glob ulin ratio 1.6 (calc ) 1.0-2. 5 normal Not Available [facility] [address] [place], [address], 12/10/2023 11:16:57 12/09/19 24 12/10/2023 HEPAT IC FUNCT ION PANEL bilirubin, total 2.6 mg/dL 0.2-1. 2 high Not Available [facility] [facility] [address] [place], [address], 12/10/2023 11:16:57 12/09/19 24 12/10/2023 HEPAT IC FUNCT ION PANEL bilirubin, direct 0.4 mg/dL < or = 0.2 high Not Available [facility] [address] [place] [address], [address], 12/10/2023 11:16:57 12/09/19 24 12/10/2023 HEPAT IC FUNCT ION PANEL bilirubin, indirect 2.2 mg/dL _(farhan c) 0.2-1. 2 high Not Available [facility] [address] [place], [address], 12/10/2023 11:16:57 12/09/19 24 12/10/2023 HEPAT IC FUNCT ION PANEL alkaline phosphatase 37 U/L 31-125 normal Not Available [facility] [facility] [address] [facility] [place], [address], 12/10/2023 11:16:57 12/09/19 24 12/10/2023 HEPAT IC FUNCT ION PANEL AST 14 U/L 10-30 normal Not Available [facility] [facility] [address] [place], [address], 12/10/2023 11:16:57 12/09/19 24 12/10/2023 HEPAT IC FUNCT ION PANEL ALT 12 U/L 6-29 normal Not Available [facility] [place] [facility] [address] [facility] [place], [address], 12/10/2023 11:16:57 12/09/19 24 12/10/2023 HCG, TOTAL , [place] [address] mIU/m L high Refer ence Range Nonpr [...] appro goldie by the FDA or the [facility] actur er of the assay . Not Available [facility] [place] [facility] [address] [facility], [place], [address], 12/10/2023 11:16:58 12/09/19 24 12/09/2023 urina lysis , dipst ick Leukocytes Modera te Not Available [address], [address], 12/09/2023 08:11:20 12/09/19 24 12/09/2023 urina lysis , dipst ick Nitrite negati ve Not Available [address], [address], 12/09/2023 08:11:20 12/09/19 24 12/09/2023 urina lysis , dipst ick Urobilinogen .2 Not Available [address], [address], 12/09/2023 08:11:20 12/09/19 24 12/09/2023 urina lysis , dipst ick Protein Negati ve Not Available [address], [address], 12/09/2023 08:11:20 12/09/19 24 12/09/2023 urina lysis , dipst ick pH 5.5 Not Available [address], [address], 12/09/2023 08:11:20 12/09/19 24 12/09/2023 urina lysis , dipst ick Blood Negati ve Not Available [address], [address], 12/09/2023 08:11:20 12/09/1912/09/2023 urina lysis , dipst ick Specific [place] 1.025 Not Available [address], [address], 12/09/2023 08:11:20 12/09/19 24 12/09/2023 urina lysis , dipst ick Ketone Small Not Available [address], [address], 12/09/2023 08:11:20 12/09/19 24 12/09/2023 urina lysis , dipst ick Bilirubin Negati ve Not Available [address], [address], 12/09/2023 08:11:20 12/09/19 24 12/09/2023 urina lysis , dipst ick Glucose Negati ve Not Available [address], [address], 12/09/2023 08:11:20 12/09/19 24 12/09/2023 urina lysis , dipst ick Appearance Clear Not Available [address], [address], 12/09/2023 08:11:20 12/09/19 24 12/09/2023 urina lysis , dipst ick Color Dark Yellow Not Available [facility] [address] [facility], [place], [address], 12/09/2023 08:11:20 12/09/19 24 12/09/2023 pregn suzanne test, urine HCG positi ve Not Available [facility] [address] [facility], [place], [address], 12/09/2023 08:11:34 12/18/19 24 12/22/2023 OBSTE TRIC PANEL W/FOU RTH GENER ATION HIV AND HEPAT ITIS C AB W/REF L white blood cell count 6.2 thous and/u L 3.8-10 .8 normal Not Available [facility] [place] [facility] [address] [place], [address], 12/22/2023 10:53:19 12/18/19 24 12/22/2023 OBSTE TRIC PANEL W/FOU RTH GENER ATION HIV AND HEPAT ITIS C AB W/REF L red blood cell count 4.24 iron on/uL 3.80-5 .10 normal Not Available [facility] [place] [facility] [address] [facility], [place], [address], 12/22/2023 10:53:19 12/18/19 24 12/22/2023 OBSTE TRIC PANEL W/FOU RTH GENER ATION HIV AND HEPAT ITIS C AB W/REF L hemoglobin 12.7 g/dL 11.7-1 5.5 normal Not Available [facility] [place] [facility] [address] [facility], [place], [address], 12/22/2023 10:53:19 12/18/19 24 12/22/2023 OBSTE TRIC PANEL W/FOU RTH GENER ATION HIV AND HEPAT ITIS C AB W/REF L hematocrit 38.7 % 35.0-4 5.0 normal Not Available [facility] [place] [facility] [address] [facility] [place], [address], 12/22/2023 10:53:19 12/18/19 24 12/22/2023 OBSTE TRIC PANEL W/FOU RTH GENER ATION HIV AND HEPAT ITIS C AB W/REF L MCV 91.3 fL 80.0-1 00.0 normal Not Available [facility] [place] [facility] [address] [facility], [place], [address], 12/22/2023 10:53:19 12/18/19 24 12/22/2023 OBSTE TRIC PANEL W/FOU RTH GENER ATION HIV AND HEPAT ITIS C AB W/REF L MCH 30.0 pg 27.0-3 3.0 normal Not Available [facility] [place] [facility] [address] [place], [address], 12/22/2023 10:53:19 12/18/19 24 12/22/2023 OBSTE TRIC PANEL W/FOU RTH GENER ATION HIV AND HEPAT ITIS C AB W/REF L MCHC 32.8 g/dL 32.0-3 6.0 normal Not Available [facility] [place] [facility] [address] [place], [address], 12/22/2023 10:53:19 12/18/19 24 12/22/2023 OBSTE TRIC PANEL W/FOU RTH GENER ATION HIV AND HEPAT ITIS C AB W/REF L RDW 12.0 % 11.0-1 5.0 normal Not Available [facility] [place] [facility] [address] [place], [address], 12/22/2023 10:53:19 12/18/19 24 12/22/2023 OBSTE TRIC PANEL W/FOU RTH GENER ATION HIV AND HEPAT ITIS C AB W/REF L platelet count 143 thous and/u L 140-40 0 normal Not Available [facility] [place] [facility] [address], [place], [address], 12/22/2023 10:53:19 12/18/19 24 12/22/2023 OBSTE TRIC PANEL W/FOU RTH GENER ATION HIV AND HEPAT ITIS C AB W/REF L MPV 11.8 fL 7.5-12 .5 normal Not Available [facility] [place] [facility] [address], [place], [address], 12/22/2023 10:53:19 12/18/19 24 12/22/2023 OBSTE TRIC PANEL W/FOU RTH GENER ATION HIV AND HEPAT ITIS C AB W/REF L absolute neutrophils 5233 cells /uL 1500-7 800 normal Not Available [facility] [place] [facility] [address], [place], [address], 12/22/2023 10:53:19 12/18/19 24 12/22/2023 OBSTE TRIC PANEL W/FOU RTH GENER ATION HIV AND HEPAT ITIS C AB W/REF L absolute lymphocytes 651 cells /uL 850-39 00 low Not Available [facility] [place] [facility] [address], [place], [address], 12/22/2023 10:53:19 12/18/19 24 12/22/2023 OBSTE TRIC PANEL W/FOU RTH GENER ATION HIV AND HEPAT ITIS C AB W/REF L absolute monocytes 273 cells /uL 200-95 0 normal Not Available [facility] [place] [facility] [address], [place], [address], 12/22/2023 10:53:19 12/18/19 24 12/22/2023 OBSTE TRIC PANEL W/FOU RTH GENER ATION HIV AND HEPAT ITIS C AB W/REF L absolute eosinophils 12 cells /uL 15-500 low Not Available [facility] [place] [facility] [address], [place], [address], 12/22/2023 10:53:19 12/18/19 24 12/22/2023 OBSTE TRIC PANEL W/FOU RTH GENER ATION HIV AND HEPAT ITIS C AB W/REF L absolute basophils 31 cells /uL 0-200 normal Not Available [facility] [place] [facility] [address], [place], [address], 12/22/2023 10:53:19 12/18/19 24 12/22/2023 OBSTE TRIC PANEL W/FOU RTH GENER ATION HIV AND HEPAT ITIS C AB W/REF L neutrophils 84.4 % normal Not Available [facility] [place] [facility] [address], [place], [address], 12/22/2023 10:53:19 12/18/19 24 12/22/2023 OBSTE TRIC PANEL W/FOU RTH GENER ATION HIV AND HEPAT ITIS C AB W/REF L lymphocytes 10.5 % normal Not Available [facility] [place] [facility] [address], [place], [address], 12/22/2023 10:53:19 12/18/19 24 12/22/2023 OBSTE TRIC PANEL W/FOU RTH GENER ATION HIV AND HEPAT ITIS C AB W/REF L monocytes 4.4 % normal Not Available [facility] [place] [facility] [address], [place], [address], 12/22/2023 10:53:19 12/18/19 24 12/22/2023 OBSTE TRIC PANEL W/FOU RTH GENER ATION HIV AND HEPAT ITIS C AB W/REF L eosinophils 0.2 % normal Not Available [facility] [place] [facility] [address], [place], [address], 12/22/2023 10:53:19 12/18/19 24 12/22/2023 OBSTE TRIC PANEL W/FOU RTH GENER ATION HIV AND HEPAT ITIS C AB W/REF L basophils 0.5 % normal Not Available [facility] [place] [facility] [address] [facility], [place], [address], 12/22/2023 10:53:19 12/18/19 24 12/22/2023 OBSTE TRIC [...] pregn suzanne. Not Available [facility] [place] [facility] [address] [facility], [place], [address], 12/22/2023 10:53:19 12/18/19 24 12/22/2023 OBSTE TRIC PANEL W/FOU RTH GENER ATION HIV AND HEPAT ITIS C AB W/REF L ABO group O Not Available [facility] [place] [facility] [address] [facility], [place], [address], 12/22/2023 10:53:19 12/18/19 24 12/22/2023 OBSTE TRIC PANEL W/FOU RTH GENER ATION HIV AND HEPAT ITIS C AB W/REF L Rh type RH(D) POSITI VE For addit ional infor cliff up e refer to http: //[facility] emily shah.Que stDia gnost ics.c om/fa q/FAQ 111 (This link is being provi ded for infor martell shen/ educa domi l purpo ses only. ) Not Available [facility] [place] [facility] [address] [facility], [place], [address], 12/22/2023 10:53:19 12/18/19 24 12/22/2023 OBSTE TRIC PANEL W/FOU RTH GENER ATION HIV AND HEPAT ITIS C AB W/REF L RPR (DX) w/refl titer and confirmatory testing NON-RE ACTIVE non-re active normal No labor atory evide nce of syphi lis. If recen t expos ure is suspe cted, submi t a new sampl e in 2-4 weeks . Not Available [facility] [place] [facility] [address] [facility], [place], [address], 12/22/2023 10:53:19 12/18/19 24 12/22/2023 OBSTE TRIC [...] only. ) Not Available [facility] [place] [facility] [address] [facility], [place], [address], 12/22/2023 10:53:19 12/18/19 24 12/22/2023 OBSTE TRIC [...] virus . Not Available [facility] [place] [facility] [address] [facility], [place], [address], 12/22/2023 10:53:19 12/18/19 24 12/22/2023 OBSTE TRIC [...] matio n pleas e refer to http: //[facility] emily shah.bill stdia gnost ics.c om/fa q/FAQ 106 (This link is being provi ded for infor matio nal/ educa domi l purpo ses only. ) The perfo rmanc e of this assay has not been clini leobardo valid ated in patie nts less than 2 years old. Not Available [facility] [place] [facility] [address] [facility], [place], [address], 12/22/2023 10:53:19 12/18/19 24 12/22/2023 OBSTE TRIC [...] a test for HCV RNA (test code 93120 ) is sugge sted. For addit ional infor matio n pleas e refer to http: //[facility] stdia gnost ics.c om/fa q/FAQ 22v1 (This link is being provi ded for infor martell shen/ yang oliva purpo ses only. ) Not Available [facility] [place] [facility] [address] [place], [address], 12/22/2023 10:53:19 01/06/20 24 01/06/2024 rapid strep group A, throa t Strep negati ve Not Available [facility] - [address], [place], [address], 01/06/2024 13:13:50 01/15/20 24 01/26/2024 QNATA L(R) ADVAN GREGORIO number of fetuses? 1 Not Available [facility] [place] [facility] [address], [place], [address], 01/26/2024 01:26:17 01/15/20 24 01/26/2024 QNATA L(R) ADVAN GREGORIO advanced maternal age? NOT GIVEN Not Available [facility] [place] [facility] [address] [place], [address], 01/26/2024 01:26:17 01/15/20 24 01/26/2024 QNATA L(R) ADVAN GREGORIO abnormal meliton? NOT GIVEN Not Available [facility] [place] [facility] [address] [place], [address], 01/26/2024 01:26:17 01/15/20 24 01/26/2024 QNATA L(R) ADVAN GREGORIO abnormal US? NOT GIVEN Not Available [facility] [place] [facility] [address] [place], [address], 01/26/2024 01:26:17 01/15/20 24 01/26/2024 QNATA L(R) ADVAN GREGORIO personal/fam history? NOT GIVEN Not Available [facility] [place] [facility] [address] [place], [address], 01/26/2024 01:26:17 01/15/20 24 01/26/2024 QNATA L(R) ADVAN GREGORIO interpretati on SEE NOTE This speci men showe d an expec sathish repre senta tion of chrom osome 21, 18, and 13 mater ial. See Elias rivera below . 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) Negati ve Not Available [facility] [place] [facility] [address] [facility], [place], [address], 01/26/2024 01:26:17 01/15/20 24 01/26/2024 QNATA L(R) ADVAN GREGORIO trisomy 13 (T13) Negati ve Not Available [facility] [place] [facility] [address] [facility], [place], [address], 01/26/2024 01:26:17 01/15/20 24 01/26/2024 QNATA L(R) ADVAN GREGORIO Y chromosome Not detect ed Not Available [facility] [place] [facility] [address] [facility], [place], [address], 01/26/2024 01:26:17 01/15/20 24 01/26/2024 QNATA L(R) ADVAN GREGORIO Y chr. interpretati on SEE NOTE Consi stent with a femal e fetus . Not Available [facility] [place] [facility] [address] [facility], [place], [address], 01/26/2024 01:26:17 01/15/20 24 01/26/2024 QNATA L(R) ADVAN GREGORIO sex chromosome No aneupl oidy Not Available [facility] [place] [facility] [address] [facility] [place], [address], 01/26/2024 01:26:17 01/15/20 24 01/26/2024 QNATA L(R) ADVAN GREGORIO sex chromosome interp SEE NOTE No appar ent abnor malit y was detec sathish. See Limi tatio ns below . Not Available [facility] [place] [facility] [address] [facility], [address], 01/26/2024 01:26:17 01/15/20 24 01/26/2024 QNATA L(R) ADVAN GREGORIO microdeletio n Not detect ed Not Available [facility] [place] [facility] [address] [facility], [address], 01/26/2024 01:26:17 01/15/20 24 01/26/2024 QNATA L(R) ADVAN GREGORIO microdeletio n interp SEE NOTE No appar ent abnor malit y was detec sathish. See Limi tatio ns below . Not Available [facility] [address] [facility] [place], [address], 01/26/2024 01:26:17 01/15/20 24 01/26/2024 QNATA L(R) ADVAN GREGORIO gestational age(in weeks) 10 Not Available [facility] [place] [facility] [address] [facility] [place], [address], 01/26/2024 01:26:17 01/15/20 24 01/26/2024 QNATA L(R) ADVAN GREGORIO gestational age (in days) 3 Not Available [facility] [place] [facility] [address] [facility] [place], [address], 01/26/2024 01:26:17 01/15/20 24 01/26/2024 QNATA L(R) ADVAN GREGORIO fraction 9.49% Not Available [facility] [place] [facility] [address] [place], [address], 01/26/2024 01:26:17 01/15/20 24 01/26/2024 QNATA L(R) ADVAN GREGORIO laboratory comments SEE NOTE A porti on of the testi ng was perfo rmed at [facility] . Labor atory resul ts and submi tted clini farhan infor matio n revie wed by Tomi Lozano, Ph.D. , [facility]. Not Available [facility] [place] [facility] [address] [place], [address], 01/26/2024 01:26:17 01/15/20 24 01/26/2024 QNATA L(R) [...] origi n. Not Available [facility] [place] [facility] [address] [facility], [place], [address], 01/26/2024 01:26:17 01/15/20 24 01/26/2024 QNATA L(R) [...] sment . Not Available [facility] [place] [facility] [address] [facility], [place], [address], 01/26/2024 01:26:17 01/15/2001/26/2024 QNATA L(R) ADVAN GREGORIO [...] senta tion of seque nces from the [facility] emergency department [facility] ns invol goldie in 1p36 micro delet [...] by FDA. Not Available [facility] [place] [facility] [address] [facility], [place], [address], 01/26/2024 01:26:17 01/15/20 24 01/26/2024 CHLAM YDIA/ N.RO ORRHO EAE AND T. VAGIN ADILSON RNA, QL TMA chlamydia trachomatis RNA, tma, urogenital NOT DETECT ED not detect ed normal Not Available [facility] [place] [facility] [address] [facility], [place], [address], 01/26/2024 01:26:18 01/15/20 24 01/26/2024 CHLAM YDIA/ N.RO ORRHO EAE AND T. VAGIN ADILSON RNA, QL TMA neisseria gonorrhoeae RNA, tma, urogenital NOT DETECT ED not detect ed normal Not Available [facility] [place] [facility] [address] [facility], [place], [address], 01/26/2024 01:26:18 01/15/20 24 01/26/2024 CHLAM YDIA/ [...] refer to https ://ed ucati on.qu estdi MIOX tics. com/f aq/FA Q154 (This link is being provi ded for infor martell shah/ educa domi l purpo ses only. ) Not Available [facility] [place] [facility] [address] [facility], [place], [address], 01/26/2024 01:26:18 01/15/20 24 01/26/2024 CHLAM YDIA/ N.RO ORRHO EAE AND T. VAGIN ADILSON RNA, QL TMA trichomonas vaginalis RNA, ql tma NOT DETECT ED not detect ed normal For addit ional infor cliff up refer to http: //[facility] emily shah.que stdia gnost ics.c om/ faq/T katie reynolds tma (This link is being provi ded for infor martell shen/ educa domi l purpo ses only. ) Not Available [facility] [place] [facility] [address] [facility], [place], [address], 01/26/2024 01:26:18 01/15/20 24 01/26/2024 DRUG MONIT ORING , PANEL 8 WITH CONFI RMATI ON, URINE alcohol metabolites NEGATI VE NG/mL <500 normal Not Available [facility] [place] [facility] [address] [place], [address], 01/26/2024 01:26:18 01/15/20 24 01/26/2024 DRUG MONIT ORING , PANEL 8 WITH CONFI RMATI ON, URINE amphetamines NEGATI VE NG/mL <500 normal Not Available [facility] [place] [facility] [address] [facility], [place], [address], 01/26/2024 01:26:18 01/15/20 24 01/26/2024 DRUG MONIT ORING , PANEL 8 WITH CONFI RMATI ON, URINE benzodiazepi bony NEGATI VE NG/mL <100 normal Not Available [facility] [place] [facility] [address] [facility], [place], [address], 01/26/2024 01:26:18 01/15/20 24 01/26/2024 DRUG MONIT ORING , PANEL 8 WITH CONFI RMATI ON, URINE buprenorphin e NEGATI VE NG/mL <5 normal Not Available [facility] [place] [facility] [address] [place], [address], 01/26/2024 01:26:18 01/15/20 24 01/26/2024 DRUG MONIT ORING , PANEL 8 WITH CONFI RMATI ON, URINE cocaine metabolite NEGATI VE NG/mL <150 normal Not Available [facility] [place] [facility] [address] [place], [address], 01/26/2024 01:26:18 01/15/20 24 01/26/2024 DRUG MONIT ORING , PANEL 8 WITH CONFI RMATI ON, URINE 6 acetylmorphi ne NEGATI VE NG/mL <10 normal Not Available [facility] [address] [place], [address], 01/26/2024 01:26:18 01/15/20 24 01/26/2024 DRUG MONIT ORING , PANEL 8 WITH CONFI RMATI ON, URINE marijuana metabolite NEGATI VE NG/mL <20 normal Not Available [facility] [address] [place], [address], 01/26/2024 01:26:18 01/15/20 24 01/26/2024 DRUG MONIT ORING , PANEL 8 WITH CONFI RMATI ON, URINE MDMA NEGATI VE NG/mL <500 normal Not Available [facility] [address] [facility] [place], [address], 01/26/2024 01:26:18 01/15/20 24 01/26/2024 DRUG MONIT ORING , PANEL 8 WITH CONFI RMATI ON, URINE opiates NEGATI VE NG/mL <100 normal Not Available [facility] [address] [facility] [place], [address], 01/26/2024 01:26:18 01/15/20 24 01/26/2024 DRUG MONIT ORING , PANEL 8 WITH CONFI RMATI ON, URINE oxycodone NEGATI VE NG/mL <100 normal Not Available [facility] [place] [facility] [address] [place], [address], 01/26/2024 01:26:18 01/15/20 24 01/26/2024 DRUG MONIT ORING , PANEL 8 WITH CONFI RMATI ON, URINE creatinine 89.6 mg/dL > or = 20.0 normal Not Available [facility] [place] [facility] [address] [facility] [place], [address], 01/26/2024 01:26:18 01/15/20 24 01/26/2024 DRUG MONIT ORING , PANEL 8 WITH CONFI RMATI ON, URINE pH 8.4 4.5-9. 0 normal Not Available [facility] [address] [place], [address], 01/26/2024 01:26:18 01/15/20 24 01/26/2024 DRUG MONIT ORING , PANEL 8 WITH CONFI RMATI ON, URINE oxidant NEGATI VE mcg/m L <200 normal Not Available [facility] [place] [facility] [address] [place], [address], 01/26/2024 01:26:18 01/15/20 24 01/26/2024 DRUG MONIT [...] 10pm EST Not Available [facility] [place] [facility] [address] [place], [address], 01/26/2024 01:26:19 01/15/20 24 01/26/2024 CULTU RE, URINE , ROUTI NE culture, urine, routine SEE NOTE CULTU RE, URINE , ROUTI NE Micro Numbe r: [id number] Test Statu s: Final Speci men Sourc e: Urine Speci men Quali ty: Adequ ate Resul t: No Growt h Not Available [facility] [address] [place], [address], 01/26/2024 01:26:19 01/15/20 24 01/15/2024 urina lysis , dipst ick Leukocytes Modera te Not Available [address], [address], 01/15/2024 16:55:16 01/15/20 24 01/15/2024 urina lysis , dipst ick Nitrite negati ve Not Available [address], [address], 01/15/2024 16:55:16 01/15/20 24 01/15/2024 urina lysis , dipst ick Urobilinogen .2 Not Available [address], [address], 01/15/2024 16:55:16 01/15/20 24 01/15/2024 urina lysis , dipst ick Protein Negati ve Not Available [address], [address], 01/15/2024 16:55:16 01/15/20 24 01/15/2024 urina lysis , dipst ick pH 6.0 Not Available [address], [address], 01/15/2024 16:55:16 01/15/20 24 01/15/2024 urina lysis , dipst ick Blood Negati ve Not Available [address], [address], 01/15/2024 16:55:16 01/15/20 24 01/15/2024 urina lysis , dipst ick Specific [place] 1.020 Not Available [address], [address], 01/15/2024 16:55:16 01/15/20 24 01/15/2024 urina lysis , dipst ick Ketone Negati ve Not Available [address], [address], 01/15/2024 16:55:16 01/15/20 24 01/15/2024 urina lysis , dipst ick Bilirubin Negati ve Not Available [address], [address], 01/15/2024 16:55:16 01/15/20 24 01/15/2024 urina lysis , dipst ick Glucose Negati ve Not Available [address], [address], 01/15/2024 16:55:16 12/11/19 24 12/11/2023 US, obste tric, trans vagin al No observ ation record ed. [email or web address] [address], [place], [address], 12/14/2023 10:33:57 12/18/1912/18/2023 US, obste tric, trans vagin al No observ ation record ed. [email or web address] [facility] [address] [place], [address], 12/23/2023 15:48:00 12/18/19 US, obste tric No observ ation record ed. [email or web address] [facility] [address] [place], [address], 12/18/2023 11:51:05 Result Notes None recorded. Problems Name Problem SNOMED Code Status Onset Date Resolution Date Notes Provider Name and Address Organization Details Recorded Time Tinea corporis 75069934 Active 2022 Rhonda Watkins APRN [address] [place] [address], [address], [employer] 3 15:13:40 Pityrias is versicol or 13043386 Active 2022 Rhonda Watkins APRN [address] [place] [address], [address], [employer] 3 15:59:21 Depressi ve disorder 30540849 Active 2022 Rhonda Watkins APRN [address] [place] [address], [address], [employer] 3 15:59:36 Overacti ve urinary bladder 151315928 Active 2022 Rhonda Watkins APRN [address] [place] [address], [address], [employer] 3 15:59:50 Mixed urinary incontin ence 433793613 Active 2022 Rhonda Watkins APRN [address] [place] [address], [address], [employer] 3 16:01:47 Acute pharyngi tis 071295388 Active 2022 Rhondacorey Watkins APRN [address] [place] [address], [address], [employer] 3 17:50:47 Missed period 10229610 Active 2022 Rhonda Watkins APRN [address] [place] [address], [address], [employer] 3 13:04:58 Nausea and vomiting 89024903 Active 2022 Rhonda Watkins APRN [address] [place] [address], [address], [employer] 3 13:41:40 Constipa tion 36327346 Active 2022 Rhonda Watkins APRN [address] [place] [address], [address], [employer] 3 13:41:44 Pelvic and perineal pain 374168390 Active 2022 Rhonda Watkins APRN [address] [place] [address], [address] 8, [employer] 3 17:12:13 Genital herpes simplex 52080925 Active 2022 Rhonda Watkins APRN [address] [place] [address], [address] 8, [employer] 3 17:12:40 Abdomina l pain 55671509 Active 2022 Rhonda Watkins APRN [address] [place] [address], [address], [employer] 3 09:38:02 Streptoc occal sore throat 86723572 Active [address], [address], [employer] 3 08:58:06 Vaginal irritati on 885646323 Active 2023 Rhonda Watkins APRN [address] [place] [address], [address], [employer] 4 12:47:40 Pregnanc y 95671246 Completed 202308/30/2024 ESTELLE ONOFRE maxine, [employer] 5 14:48:36 Tachycar brannon 7577419 Active 2023 On metoprolo l 12.5mg QD Francy Corey, DO [address] [place] [address], [address], [employer] 4 14:10:47 Tachycar brannon 0349009 Completed 2023 On metoprolo l 12.5mg QD Francydaniel Nicole DO [address] [place] [address], [address] 8, [employer] 4 14:10:47 Sore throat 408683164 Active 2023 NEHEMIAH Sims [address] [place] [address], [address], [employer] 4 14:33:22 Gestatio n period, 9 weeks 865672 Active 2023 NEHEMIAH Sims [address] [place] [address], [address], [employer] 4 14:33:29 Problem Notes None recorded. Procedures Surgical History Date Name Laterality Status Provider Name and Address Organization Details Recorded Time 12/11/19 Date of Last Pap Smear completed Francy Evans [employer] 10/20/2023 13:29:10 Tonsillectomy completed TELLO CONK[employer] 12/10/2022 14:43:50 hand repair completed BORIS JANE [employer] 07/23/2023 08:28:12 Dilation and Curettage completed TELLO EMMETT [employer]. 12/09/2023 10:10:06 Imaging Results None recorded. Procedure Notes None recorded. Medical Equipment None Reported. Allergies Allergen ID Allergen Name Allergen Category Reaction Reaction Severity Criticality Documentation Date Start Date Code Code System Note Provider Name and Address Organization Details Recorded Time 12174 Product containin g penicilli n (product) medicatio n Not available Not available Not available 12/10/2022 17526 8001 SNOMED TELLORealtime Games SHERMAN [facility]. 3 14:48:49 63491 Augmentin medicatio n Not available Not available Not available 12/10/2022 96164 2 RxNorm TELLOMonumental Games[facility]. 3 14:48:54 Medications Name Sig Start Date [...] Updated DateTime 12/11/2023 167.64 cm TELLO SHERMAN [employer]. 12/11/2023 16:30:09 Date Recorded Body weight Provider Name an d Address Organization Details Last Updated DateTime 12/16/2023 95792.850205 g Francy Nicole DO [address] [place] [address], [address], [employer]. 12/22/2023 12:17:21 Date Recorded Body height Body mass index (BMI) Systolic And Diastolic Provider Name and Address Organization Details Last Updated DateTime 12/16/2023 167.64 cm 22.2 kg/m2 110/70 mm[Hg] Mychal Parnell [employer] 12/16/2023 09:55:12 Date Recorded Body weight Provider Name an d Address Organization Details Last Updated DateTime 12/18/2023 75873.73884 g Geno [place], [address], [employer]. 12/18/2023 11:47:26 Date Recorded Body height Body mass index (BMI) Provider Name and Address Organization Details Last Updated DateTime 12/18/2023 167.64 cm 22.1 kg/m2 TELLO SHERMAN [employer]. 12/18/2023 11:43:41 Date Recorded Body height Body mass index (BMI) Body weight Oxygen saturation Oxygen saturation in Arterial blood by Pulse oximetry Heart rate Body temperature Systolic And Diastolic Provider Name and Address Organization Details Last Updated DateTime 167.64 cm 22.3 kg/m2 66621.7 5 g 98 % 98 % 81 /min 98.3 [degF] 113/73 mm[Hg] Shani Bowser [employer]. 13:12:47 Date Recorded Body height Provider Name an d Address Organization Details Last Updated DateTime 01/15/2024 167.64 cm Mychal Parnell [employer] 01/15/2024 16:54:15 Date Recorded Body weight Systolic And Diastolic Provider Name and Address Organization Details Last Updated DateTime 01/15/2024 04127.66515 g 112/62 mm[Hg] Ean Cruz [employer] 01/15/2024 16:59:36 Social History Question Answer Notes LastModified by Organizat ion Details LastModified Time Tobacco Smoking Status Former Smoker BORIS goodman, [employer]. 07/23/2023 08:27:54 What Is Your Level Of [...] Or The Highest Degree You Have Received? [id number] Information not available 12/10/2022 Who Is Your Employer? [employer] Information not available 12/10/2022 Have There Been Any Changes To Your Family Or Social Situation? No Information not available 12/10/2022 When Did You Quit Smoking? 1-5yearssincheryl Information not available 07/23/2023 Which Of Your Hands Is Dominant? Right Information not available 12/10/2022 What Was The Date Of Your Most Recent Tobacco Screening? 01/15/2024 Information not available 01/15/2024 What Is Your Current Pack Years? 10packyears [email or web address] Information not available 07/23/2023 Have You Ever [...] Has Tobacco Cessation Counseling Been Provided? Yes [email or web address] Information not available 10/20/2023 On What Date [...] used smokeless tobacco? Never used smokeless tobacco [email or web address] Information not available 07/23/2023 Are you currently [...] Details Recorded Time IPV 2 completed TELLO CHRISTINE SHERMAN null, [employer] 12/10/2022 14:42:16 MMR 2 completed TELLO CHRISTINE SHERMAN null, [employer] 12/10/2022 14:42:16 COVID-19 vaccine, vector-nr, rS-Ad26, PF, 0.5 mL 1 completed TELLO CHRISTINE SHERMAN null, [employer] 12/10/2022 14:42:16 Tdap 0 completed TELLO CHRISTINE SHERMAN null, [employer] 12/10/2022 14:42:16 varicella 1 completed TELLO CHRISTINE SHERMAN null, [employer] 12/10/2022 14:42:16 HPV, quadrivalent 1 completed TELLO CHRISTINE SHERMAN null, [employer] 12/10/2022 14:42:16 Hep A, ped/adol, 2 dose 1 completed TELLO CHRISTINE SHERMAN null, [employer] 12/10/2022 14:42:16 Hep A, ped/adol, 2 dose 0 completed TELLO CHRISTINE SHERMAN null, [employer] 12/10/2022 14:42:16 DTaP, unspecified formulation 2 completed TELLO CHRISTINE SHERMAN null, [employer] 12/10/2022 14:42:16 Influenza, split virus, quadrivalent, PF 3 completed Francydaniel goodman [employer] 09/22/2023 12:41:20 Past Encounters Encounter ID Performer Location Encounter Start Date Encounter Closed Date Diagnosis/Indication Diagnosis SNOMED-CT Code Diagnosis ICD10 Code Diagnosis Note [id number] Rhonda Watkins [facility] [address] [facility] [place] [address] 12/10/2022 14:38:30 12/10/2022 16:46:26 Pityriasis versicolor 05946425 B36.0 Depressive disorder 3548 9007 F32.A Overactive urinary bladder 133575159 N32.81 Mixed urin glenn incontinence 260099429 N39.46 Screening for malignant neoplasm of cervix 135624018 Z12.4 [id number] Rhonda Watkins [facility] [address] [facility] [place] [address] 01/16/2023 14:12:44 01/16/2023 15:00:55 Vaginal irritation 172286220 N89.8 Acute pharyngitis 603561 003 J02.9 [id number] Rhonda Watkins [facility] [address] AFARCHET[address] [facility] [address] 02/04/2023 07:51:37 02/05/2023 10:48:21 Pelvic and perineal pain 406971963 R10.2 Genital he rpes simplex 10519546 A60.9 [id number] Yolette Sotelo [address] [address] 04/18/2023 10:23:36 04/18/2023 11:55:33 Acute pharyngitis 146249114 J02.9 Influenza caused by Influenza A virus 345606032 J09.X2 off work until until Thursday [id number] Bharati Tong [address] [address] 04/21/2023 08:50:39 04/21/2023 09:56:48 Missed period 86080203 N92.5 Influenza caused by Influenza A virus 159978685 J09.X2 [id number] BG CATALAN, [address] [place] [address] 07/23/2023 08:09:18 07/23/2023 09:21:43 Viral screening 416164178 Z11.59 Streptococ farhan sore throat 21023762 J02.0 [id number] Rhonda Watkins [facility] [address] [place] [address] 09/22/2023 12:09:54 09/22/2023 13:01:44 Vaginal irritation 878089048 N89.8 [id number] [facility]onda Watkins [facility] [address] [place] [address] 10/20/2023 13:11:29 10/20/2023 15:12:45 Vaginal irritation 557124923 N89.8 [id number] TAMIA WILL MD [facility] [address] [place] [address] 12/09/2023 09:32:48 12/09/2023 10:44:16 Missed period 88191795 N92.5 Intrauteri ne 20128471 Z34.90 [id number] TAMIA WILL MD [facility] [address] [place] [address] 12/11/2023 16:01:47 12/11/2023 16:33:10 [id number] Francy Nicole DO [facility] [address] [place] [address] 12/16/2023 09:48:15 12/16/2023 16:56:35 91744959 Z33.1 Dating US scheduled in 2 days Tachycardia 9179155 R00. 0 Prescribed metoprolol 25mg QD, has been taking 12.5 [id number] TAMIA WILL MD [facility] [address] [place] [address] 12/18/2023 10:55:41 12/18/2023 11:59:42 Intrauterine 95199801 Z34.90 [id number] Jocelyn Lynnley, KETTLE COOK [facility] [address] [place] [address] 01/06/2024 12:33:43 01/06/2024 15:00:47 Sore throat 712535272 J02.9 Acute pharyngitis 726353 003 J02.9 Gestation period, 9 weeks 487563 Z3A.09 Normal weight 19914862 Z 68.22 [id number] Francy Nicole, [facility] [address] [facility] [facility] [place] [address] 01/15/2024 16:31:36 01/15/2024 17:20:47 17340453 Z33.1 Health Concerns Section Related Observation LastModified by Organization Detai ls LastModified Time None Recorded Concern Status LastModified by Organization Details LastModified Time None Recorded Advance Directives Directive None Recorded Payers Insurance Date Sequence Insurance Name Policy Number Policy Zaidi Covered Member ID Zaidi Member ID Guarantor Name 06/13/2024 1 [facility] [id number] [facility] 06/01/2023 1 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 [facility] 12/16/2023 SLIDING FEE SCHEDULE - DISCOUNT [facility] 12/16/2023 1 *SELF PAY* [facility] 12/16/2023 SLIDING FEE SCHEDULE - DISCOUNT [facility] 03/07/2024 2 *SELF PAY* [facility] 12/16/2023 [place] [facility] [place] [facility] [id number] [facility] Notes Date Note Type Note Provider [...] She is given warnings. TAMIA WILL MD [address] [place] [address], [address], [employer]. 12/11/2023 16:35:43 12/16/2023 text/html This is a [...] in two days. Francy Nicole DO [address] [place], [address], [employer] 12/22/2023 12:21:03 01/06/2024 text/html Sore ThroatRepor [...] neck; no muffled voice;cough NEHEMIAH Sims [address] [place], [address], [employer] 01/06/2024 14:37:51 01/15/2024 text/html This is a [...] results for her Halter monitor from her rib knitter next week. Francy Nicole, DO [address] [place] [address], [address], [facility] [employer] 01/16/2024 14:11:27 OBGyn Episode Ob Episode Information Episode Created Date Number of Fetuses Patient Bloodtype Patient rh Status Prepregnancy Weight lbs Domestic Partner Domestic Partner Phone Father Name Log Skidder Status 12/11/19 1 CLOSED Fetus Data First [...] Domestic Partner Domestic Partner Phone Father Name Log Skidder Status 12/11/19 23 1 CLOSED Fetus Data [...] Domestic Partner Domestic Partner Phone Father Name Log Skidder Status 12/18/19 24 1 CLOSED Fetus Data First Name Last Name Admitted to NICU Weight (g) Sex Living Outcome Pediatric Complications Fetus ID Race Codes Race Delivery Type 2489.94 79822 F true Full Term 8847 2106-3 White Problems Problem Notes Problem Name Start Date End Date Resolution Snomed Code Not e Tachycardia 12/22/2023 4396825 On meto prolol 12.5mg QD Cole Calculation Initial Cole Date Initial Exam Date Initial Exam Provider Initial Ultrasound Date Last Menstrual Period Date Ultra Sound Weeks Gestation 08/09/2023 12/18/2023 [email or web address] 12/18/2023 11/03/2023 6 Eighteen To Twenty Week Cole Update Ultra Sound Date Fundal Height At Umbil Quickening Date Ultra Sound Latest Weeks Gestation Final Cole Confirmed By Final Cole Confirmed Date Final Cole Date Ultra Sound Latest Days Gestation 0 [email or web address] 12/18/2023 08/09/19 25 0 Pre-jazzy Flowsheet Flowsheet Date 12/16/2023 Zepeda Score Blood Edema Fundus Height Fundus Units Glucose Ketones Leukocytes Nitrite Labor Signs Protein Cervic Dilation Cervic Effacement Cervic Station Type Weight in lbs Pre/Post Dialysis Refused With clothes 137.760961081101 BP Diastolic BP Location Tested BP Systolic [...] in lbs Pre/Post Dialysis Refused With clothes 137.588037521366 BP Diastolic BP Location Tested BP Systolic BP Type sitting Fetus Heart Rate Present Fetus Movement Comments Scan 6.3 week CRL. Labs toda y, 4 weeks Flowsheet Date 01/06/2024 Zepeda Score Blood Edema Fundus Height Fundus Units Glucose Ketones Leukocytes Nitrite Labor Signs Protein Cervic Dilation Cervic Effacement Cervic Station Type Weight in lbs Pre/Post Dialysis Refused With clothes 138.963835856905 BP Diastolic BP Location Tested BP Systolic BP Type 73 R arm 113 sitting Fetus Heart Rate Present Fetus Movement Comments Flowsheet Date 01/15/2024 Zepeda Score Blood Edema Fundus Height Fundus Units Glucose Ketones Leukocytes Nitrite Labor Signs Protein Cervic Dilation Cervic Effacement Cervic Station none neg Type Weight in lbs Pre/Post Dialysis Refused With clothes 136.800805184314 BP Diastolic BP Location Tested BP Systolic [...]
--- OUTSIDE RECORDS SUMMARY | 2025-02-04 08:18 | XMS_ITS | Encounter Summary ---
Author Organization Healthcare Address [address] [place] [address] Care Team Providers Care Track Repair Worker Name Role Phone Angela Oleary RN Unavailable Unavailable Rey Wyatt MD Primary Care Provider [phone] Encounter Details Date Type Department Care Team [...] week 02/22/2024 How often do you attend [facility] or [facility] services? Never 02/22/2024 Do you [...] Recorded Patient Health Questionnaire-2 Score 0 11/16/2024 [facility] [...] in a snf (including now)? No 02/09/2024 [place] Depression Scale Answer Date Recorded [place] Depression Scale Total 6 08/08/2024 The thought [...] drink first t casi in the morning (EYE-MARKER MACHINE ATTENDANT) to steady your nerves or to [...] Visit [facility] [address] [place] [address] Rachel Khan PA [address] [place] [address] 02/16/2025 1:20 PM EDT Office Visit [facility] [place] [address], [address] [place] [address] Courtney Torres MD [address] [place] [address] 03/15/2025 3:30 PM EDT Consult [facility] [address], [address] [place] [address] Kendy Sanchez APRN [address] [place] [address] 04/17/2025 2:00 PM EDT Office Visit [facility] Medicine Specialties [address], [address] [place] [address] Silverio Tam PA [address] [place] [address] documented as of this [...] documented as of this encounter Care Teams Track Repair Worker Relationship Specialty Start Date End Date Rey Wyatt MD [address] [place] [address] PCP - General 11/16/24 Angela Oleary, RN [facility] Registered Nurse Cardiology 02/17/24 documented as of this encounter
--- OUTSIDE RECORDS SUMMARY | 2025-02-04 08:18 | XMS_ITS | Encounter Summary ---
Author Organization Healthcare Address [address] [place] [address] Care Team Providers Care Professional Athlete Name Role Phone Molly Louis MD Primary Care Provider [phone] Angela Oleary RN Unavailable Unavailable Rey Wyatt MD Primary Care Provider [phone] Reason for Visit * Reason Onset Date Comments Med Refill 03/23/2024 Encounter Details Date Type Department Care Team ([facility] Contact Info) Description 03/23/2024 Refill Medical Office Building Obstetrics and Gynecology [address], [address] [place] [address] Shalonda Davies, BOWLING BALL FINISHER [address] [place] [address] Social History Tobacco Use Types [...] any clubs o r organizations such as evangelical groups, unions, fraternal or athletic groups, or [...] Recorded Patient Health Questionnaire-2 Score 0 02/17/2024 [facility] - [...] in a residential (including now)? No 02/09/2024 [place] Depression Scale Answer Date Recorded [place] Depression Scale Total 8 02/22/2024 The thought [...] drink first t casi in the morning (EYE-WOMEN'S MINISTRY DIRECTOR) to steady your nerves or to [...] Description 02/10/2025 10:00 AM EDT Office Visit [facility] [address] [place] [address] Rachel Khan PA [address] [place] [address] 02/16/2025 1:20 PM EDT Office Visit [facility] [place] [address], [address] [place] [address] Courtney Torres MD [address] [place] [address] 03/15/2025 3:30 PM EDT Consult [facility] [address], [address] [place] [address] Kendy Sanchez APRN [address] [place] [address] 04/17/2025 2:00 PM EDT Office Visit [facility] Medicine Specialties [address], [address] [place] [address] Silverio Tam PA [address] [place] [address] documented as of this encounter [...] documented as of this encounter Care Teams Professional Athlete Relationship Specialty Start Date End Date Molly Louis MD [address] [place], [place] [id number] PCP - General Family Medicine 02/09/24 11/15/24 Rey Wyatt MD [address] [place] [address] [place] [address] PCP - General 11/16/24 Angela Oleary, RN [facility] Registered Nurse Cardiology 02/17/24 documented as of this encounter
--- OUTSIDE RECORDS SUMMARY | 2025-02-04 08:19 | XMS_ITS | Encounter Summary ---
Author Organization Healthcare Address [address] [place] [address] Care Team Providers Care Music Rehabilitation Therapist Name Role Phone Angela Oleary RN Unavailable Unavailable Rey Wyatt MD Primary Care Provider [phone] Encounter Details Date Type Department Care Team [...] do you attend [facility] or [facility] services? Never 02/22/2024 Do [...] a nursing home (including now)? No 02/09/2024 [place] Depression Scale Answer Date Recorded [place] Depression Scale Total 6 08/08/2024 The thought [...] first t casi in the morning (EYE-GERIATRIC CARE MANAGER) to steady your nerves or to get rid of a hangover? 0 07/16/2024 CAGE Questionnaire Score 0 024 Utilities Answer Date Recorded In the past 12 months has th e [employer], gas, oil, or water company threatened to [...] Description 02/10/2025 10:00 AM EDT Office Visit [facility] Endocrinology [address] [place] [address] Rachel Khan PA [address] [place] [address] 02/16/2025 1:20 PM EDT Office Visit [facility] [place] [address] [place] [address] Courtney Torres MD [address] [place] [address] 03/15/2025 3:30 PM EDT Consult [facility] [address], [address] [place] [address] Kendy Sanchez APRN [address] [place] [address] 04/17/2025 2:00 PM EDT Office Visit [facility] Medicine Specialties [address], [address] [place] [address] Silverio Tam PA [address] [place] [address] documented as of this encounter [...] documented as of this encounter Care Teams Music Rehabilitation Therapist Relationship Specialty Start Date End Date Rey Wyatt MD [address] [place] [address] PCP - General 11/16/24 Angela Oleary, RN [facility] Registered Nurse Cardiology 02/17/24 documented as of this encounter
--- OUTSIDE RECORDS SUMMARY | 2025-02-04 08:19 | XMS_ITS | Clinical Summary ---
Author Organization [employer] ([place], [place], [place], [place]) Address [address] [place] [address] Care Team Providers Care Retail Seasonal Specialist Name Role Phone Molly Louis MD Primary Care Provider [phone] Allergies Active Allergy Reactions Criticality Noted Date [...] Date Guerrero rded Speak language other than Kyrgyz at home Not on file 08/13/2023 Want [...] (#1) 2025 Medical Devices Implanted Type Area Fitness And Wellness Manager Device Identifier Shelf Expiration Date Model / Serial / Lot K-Wire [id number] - [id number] Implanted:Qty: 1 on 08/04/2022 by Rex Rene MD at [facility] IMPLANTS Right: Hand [employer] [id number] / / Wire K-Wire 1.6mm [id number] Implanted:Qty: 1 on 08/04/2022 by Rex Rene MD at [facility] IMPLANTS Right: Hand Panève GRP:Panève TECH / / Insurance [employer] Advance Directives For more information, please contact: [phone] * Full Code (Latest Code Status on File) Date Activated Date Inactivated Comments 08/04/2022 6:03 AM 08/04/2022 11:35 AM Care Teams Retail Seasonal Specialist Relationship Specialty Start Date End Date Molly Louis MD [address] [place] [address] Drive [address] [place] [address] PCP - General 08/22/24
--- OUTSIDE RECORDS SUMMARY | 2025-02-04 08:19 | XMS_ITS | Encounter Summary ---
Author Organization Healthcare Address [address] [id number] Care Team Providers Care Branch Lead Name Role Phone Molly Louis MD Primary Care Provider [phone] Angela Oleary RN Unavailable Unavailable Rey Wyatt MD Primary Care Provider [phone] Reason for Visit * Reason Onset Date Comments Med Refill 03/03/2024 Encounter Details Date Type Department Care Team (Late st Contact Info) Description 03/03/2024 Refill [facility] Inpatient [address] [place] [address] Paris Marion MD [address] [place] [address] Social History Tobacco Use Types Packs/Day Years [...] Recorded Patient Health Questionnaire-2 Score 0 02/17/2024 [facility] - Occupational Stress Questionnaire Answer Date Recorded [...] in a fpc (including now)? No 02/09/2024 [place] Depression Scale Answer Date Recorded [place] Depression Scale Total 8 02/22/2024 The thought [...] AM EDT Office Visit [facility] Endocrinology [address] [place] [address] Rachel Khan, PA [address] [place] [address] 02/16/2025 1:20 PM EDT Office Visit [facility] [place] [address], [address] [place] [address] Courtney Torres MD [address] [place] [address] 03/15/2025 3:30 PM EDT Consult [facility] [address], [address] [place] [address] Kendy Sanchez APRN [address] [place] [address] 04/17/2025 2:00 PM EDT Office Visit [facility] Medicine Specialties [address], [address] [place] [address] Silverio Tam PA [address] [place] [address] documented as of this [...] documented as of this encounter Care Teams Branch Lead Relationship Specialty Start Date End Date Molly Loius MD [address] [place] [address] PCP - General Family Medicine 02/09/24 11/15/24 [place] [address] [place] [address] [place] [address] PCP - General 11/16/24 Angela Oleary, RN [facility] Registered Nurse Cardiology 02/17/24 documented as of this encounter
--- OUTSIDE RECORDS SUMMARY | 2025-02-04 08:19 | XMS_ITS | Encounter Summary ---
Author Organization [facility] Address [address] [place] [address] Care Team Providers Care Toddler Lead Teacher Name Role Phone Angela Oleary RN Unavailable Unavailable Rey Wyatt MD Primary Care Provider [phone] Reason for Referral * Imaging (Routine) - Closed Specialty Diagnoses / Procedures Referred By Mili joe Referred To Contact Gastroenterology Diagnoses Abdominal pain, epigastric Diarrhea, unspecified type Weight loss Hematochezia Procedures Capsule Endoscopy Silverio Tam PA [address] [facility] [address] [place] [address] Phone: tel: fax: Referral ID Status Reason Start Date Expiration Date V isits Requested Visits Authorized [id number] Closed Specialty Services Required 12/28/2024 06/29/2026 1 1 Encounter Details Date Type Department Care Team (Late st Contact Info) Description 12/28/2024 Orders Only [facility] [address], [address] [place] [address] Silverio Tam PA [address] [facility] [address] [place] [address] Abdominal pain, epigastric (Primary Dx); [...] often do you attend chur ch or judaism services? Never 02/22/2024 Do you belong to [...] Score 0 12/15/2024 [facility] [...] in a fpc (including now)? No 02/09/2024 [place] Depression Scale Answer Date Recorded [place] Depression Scale Total 6 08/08/2024 The thought [...] drink first t casi in the morning (EYE-COMPLEX DIRECTOR) to steady your nerves or to get rid of a hangover? 0 07/16/2024 CAGE Questionnaire Score 0 024 Utilities Answer Date Recorded In the past 12 months has e [employer], gas, oil, or water [employer] threatened to shut off services in your [...] 10:00 AM EDT Office Visit [facility] Endocrinology [address] [place] [phone] Rachel Khan PA [address] [facility] [address] [place] [address] 02/16/2025 1:20 PM EDT Office Visit [facility] [place] [address] [facility], [address] [place] [address] Courtney Torres MD [address] [facility] [address] [place] [address] 03/15/2025 3:30 PM EDT Consult [facility] [address], [address] [place] [address] Kendy Sanchez APRN [address] [place] [address] 04/17/2025 2:00 PM EDT Office Visit [facility] [address], [address] [place] [address] Silverio Tam PA [address] [place] [address] documented as of this encounter [...] documented as of this encounter Care Teams Toddler Lead Teacher Relationship Specialty Start Date End Date Rey Wyatt MD [address] [place] [address] PCP - General 11/16/24 Angeal Oleary, RN [facility] Registered Nurse Cardiology 02/17/24 documented as of this encounter
--- OUTSIDE RECORDS SUMMARY | 2025-02-04 08:19 | XMS_ITS | Encounter Summary ---
Author Organization [employer] ([place], [place], [place], [place]) Address [address] [place] [address] Care Team Providers Care Ditch Inspector Name Role Phone Molly Louis MD Primary Care Provider [phone] Encounter Details Date Type Department Care Team (Late st Contact Info) Description 04/14/2024 Outside Orders [facility] Admitting [address] [place] [address] Silverio Tam, PA [address] [place] [address] Blood in stool (Primary Dx) Social History [...] Date Guerrero rded Speak language other than Faroese at home Not on file 08/13/2023 Want [...] 87(H) <=49 ug/g 04/19/2024 11:26 PM EDT [employer] Comment: REFERENCE INTERVAL: Calprotectin, Fecal by Immunoassay Less than 50 ug/g.........Normal 50-120 ug/g...............Borderline elevated, test should be re-evaluated in 4-6 weeks. 121 ug/g or greater.......Elevated Performed By: [facility] [address] [place] [address] Granite Countertop Installer: Wilber Pardo MD, PhD CLIA Number: [id number] Stool 04/14/2024 11:0 6 AM EDT 04/14/2024 11:47 AM EDT us [facility] - GENERAL ORDERAB LES Final Result [employer] [address] [place] [address], [facility] [phone] documented in this encounter Visit Diagnoses Diagnosis Blood in stool- Primary documented in this encounter Care Teams Ditch Inspector Relationship Specialty Start Date End Date Molly Louis MD [address] [place] [address] PCP - General 08/22/24 documented as of this encounter
--- OUTSIDE RECORDS SUMMARY | 2025-02-04 08:19 | XMS_ITS | Encounter Summary ---
Author Organization [employer] ([place], [place], [place], [place]) Address [address] [place] [address] Care Team Providers Care Logging Crew Foreman Name Role Phone Molly Louis MD Primary Care Provider [phone] Encounter Details Date Type Department Care Team (Late st Contact Info) Description 08/22/2024 Outside Orders [facility] Admitting [address] [place] [address] Silverio Tam, PA [address] [place] [address] Esophageal reflux (Primary Dx) Social History Tobacco [...] Date Guerrero rded Speak language other than Wallisian at home Not on file 08/13/2023 Want [...] EIA Negative Negative 08/23/2024 10:57 PM EST [employer] Comment: Performed By: [facility] [address] [place] [address] Degree Clerk: Wilber Pardo MD, PhD CLIA Number: [id number] Stool 08/22/2024 11:3 5 AM EST 08/22/2024 11:36 AM EST [facility] - GENERAL ORDERAB LES Final Result Performing Organization Address [facility] de Phone Number [facility] [address] [place] [address] * Calprotectin, Fecal by Immunoassay(SENDOUT) (08/22/2024 11:35 AM EST) Calprotectin, Fecal 26 <=49 ug/g 08/26/2024 8:14 AM EST [facility] Comment: REFERENCE INTERVAL: Calprotectin, Fecal by Immunoassay Less than 50 ug/g........Normal 50-120 ug/g..............Borderline elevated, test should be re-evaluated in 4-6 weeks. 121 ug/g or greater......Elevated Performed By: [facility] [address] [place] [address] Degree Clerk: Wilber Pardo MD, PhD CLIA Number: [id number] Stool 08/22/2024 11:3 5 AM EST 08/22/2024 11:36 AM EST [facility] - GENERAL ORDERAB LES Final Result Performing Organization Address [facility] Co de Phone Number [facility] [address] [place] [address], [place] [phone] documented in this encounter Visit Diagnoses Diagnosis Esophageal reflux- Primary documented in this encounter Care Teams Logging Crew Foreman Relationship Specialty Start Date End Date Molly Louis MD [address] [place] [address] PCP - General 08/22/24 documented as of this encounter
--- OUTSIDE RECORDS SUMMARY | 2025-02-04 08:19 | XMS_ITS | Encounter Summary ---
Author Organization Healthcare Address [address] [place] [address] Care Team Providers Care Tactical Response Group Officer Name Role Phone Angela Oleary RN Unavailable Unavailable Rey Wyatt MD Primary Care Provider [phone] Encounter Details Date Type Department Care Team [...] do you attend [facility] or muslim services? Never 02/22/2024 Do you belong to [...] in a mcc (including now)? No 02/09/2024 [place] Depression Scale [...] first t casi in the morning (EYE-COMPUTER FORENSIC EXAMINER) to steady your nerves or to get [...] Visit [facility] [address] [place] [address] Rachel Khan PA [address] [place] [address] 02/16/2025 1:20 PM EDT Office Visit [facility] [place] [address] [facility], [address] [place] [address] Courtney Torres MD [address] [place] [address] 03/15/2025 3:30 PM EDT Consult [facility] [address], [address] [place] [address] Kendy Sanchez APRN [address] [place] [address] 04/17/2025 2:00 PM EDT Office Visit [facility] Medicine Specialties [address], [address] [place] [address] Silverio Tam PA [address] [place] [address] documented as of this encounter [...] documented as of this encounter Care Teams Tactical Response Group Officer Relationship Specialty Start Date End Date Rey Wyatt MD [address] [place] [address] PCP - General 11/16/24 Angela Oleary, RN [facility] Registered Nurse Cardiology 02/17/24 documented as of this encounter
--- OUTSIDE RECORDS SUMMARY | 2025-02-04 08:19 | XMS_ITS | Clinical Summary ---
Author Organization [facility] Address [address] [place] [address] Care Team Providers Care Occupational Nurse Name Role Phone Angela Oleary RN Unavailable Unavailable Rey Wyatt MD Primary Care Provider [phone] Allergies Active Allergy Reactions Criticality Noted Date [...] Patient not taking.Reported on 01/17/2025 sodium chloride ([place] Nasal [place]) 0.65 % nasal spray Administer 1 spray into each nostril if needed for congestion. 30 mL 12 024 Active Additional Information Patient not taking.Reported on 01/17/2025 Blood Glucose Monitoring Suppl (OneTouch Verio Reflect) w/Device kit Active OneTouch Verio test strip 1 each by Other route if needed. Active Lancets (OneTouch Delica Plus [id number]) [facility] Active ibuprofen 600 MG tablet Take 1 [...] Palpitations 08/17/2024 and [facility]/16/2024 POTS (postural orthostatic tachycardia [...] Department Care Team Description 01/18/2025 Results Follow-Up [facility] Endocrinology [address] [place] [address] Abundio Kyle 01/17/2025 6:36 AM EDT - 01/17/2025 11:59 PM EDT Hospital Encounter [facility] [address] [place] [address] Cody Barnett MD Abdominal pain, epigastric; Diarrhea, unspecified type; Weight loss; Hematochezia Discharge Disposition: Home or Self Care 01/17/2025 Travel 12/30/2024 Orders Only [facility] Medicine Specialties [address], [address] [place] [address] Silverio Tam PA 12/28/2024 Orders Only [facility] Medicine Specialties [address], [address] [place] [address] Silverio Tam, PA Abdominal pain, epigastric (Primary Dx); Diarrhea, unspecified type; Weight loss; Hematochezia 12/28/2024 Results Follow-Up [facility] Medicine Specialties [address], [address] [place] [address] Estuardo Jon MD 12/28/2024 Orders Only [facility] Medicine Specialties [address], [address] [place] [address] Keya Minor RN Diarrhea, unspecified type 12/20/2024 Results Follow-Up [facility] Medicine Specialties [address], 2[address] [place] [address] Silverio Tam PA 12/16/2024 Results Follow-Up [facility] Endocrinology [address] [place] [address] Holli Kylelenin 12/15/2024 2:30 PM EDT Office Visit [facility] Medicine Specialties [address], [address] [place] [address] Silverio Tam PA Weight loss (Primary Dx); Abdominal pain, epigastric; Diarrhea, unspecified type; Postural orthostatic tachycardia syndrome (POTS); Hematochezia; Elevated fecal calprotectin; Urticaria; History of anesthesia reaction; Gastroesophageal reflux disease, unspecified whether esophagitis present; [place]'s syndrome; Nausea and vomiting, unspecified vomiting type; BMI 23.0-23.9, adult 12/15/2024 Travel 12/09/2024 Orders Only [facility] Medicine Specialties [address], [address] [place] [address] Silverio Tam PA 12/08/2024 Travel 12/07/2024 7:03 AM EDT - 12/07/2024 11:59 PM EDT Hospital Encounter [facility] [address] 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 Travel 11/16/2024 Telephone [place] [facility] [address], 1[address] [place] [address] YamelsaidaKendy wintersTRISTAN 11/14/2024 Orders Only [facility] Endocrinology [address] [place] [address] Anaeblla Hugodoris Thyrotoxicosis with Tricia thyroiditis (Primary Dx) 11/13/2024 Travel 11/11/2024 8:40 AM EDT Office Visit [facility] Endocrinology [address] [place] [address] (1), Roland Wooten Fellow Anabella [...] reynoso Alive Maternal Grandmother Melania sheridan Mother Avrli fagan Mother's Sister Ashanti Alive Social History [...] Recorded Patient Health Questionnaire-2 Score 0 12/15/2024 [facility] - Occupational Stress [...] in a intermediate (including now)? No 02/09/2024 Lapel Depression Scale Answer Date Recorded Lapel Depression Scale Total 6 08/08/2024 The thought [...] drink first t casi in the morning ([employer]) to steady your nerves or to get rid of a hangover? 0 07/16/2024 CAGE Questionnaire Score 0 024 Utilities Answer Date Recorded In the past 12 months has e [facility], gas, oil, or water [employer] threatened to shut off services in your [...] AM EDT Office Visit [facility] [address] [place] [address] Rachel Khan PA [address] [facility] [address] [place] [address] 02/16/2025 1:20 PM EDT Office Visit [facility] [place] [address] [facility], [address] [place] [address] Courtney Torres MD [address] [facility] [address] [place] [address] 03/15/2025 3:30 PM EDT Consult [place] [facility] [address], 1[address] [place] [address] Kendy Sanchez, MINUTE CLERK FOR BASIC [employer]FFIC [address] [place] [address] 04/17/2025 2:00 PM EDT Office Visit [facility] Medicine Specialties [address], [address] [place] [address] Silverio Tam PA [address] [place] [address] Health Maintenance Due Date Last [...] - Td or Tdap) 02/21/2020 02/20/2010, 04/26/2002 [id number] Vaccine (2 - season) 2024 02/21/2021 UKY- [...] - 4.3 pg/mL 01/18/2025 11:56 PM EDT [employer] ([employer]) Blood Venous blood specimen / Unknown Venipuncture / Unknown 01/17/2025 8:47 AM EDT 01/17/2025 8:47 AM EDT Narrative [facility] [employer] ([place]) - 01/18/2025 11:56 PM EDT REFERENCE INTERVAL: Triiodothyronine, Free (Free T3) Access complete set of age- and/or gender-specific reference intervals for this test in the [employer] Test Directory ([employer]at). Performed By: [facility] [address] [id number] Sheltered Workshop Worker: Wilber Pardo MD, PhD CLIA Number: [id number] us Saskia Garcia MD LAB BLOOD ORDERABLES Final Resul t [facility] [employer]WN) [address] [place] [address] * Thyroid Stimulating Hormone Receptor Antibody (01/17/2025 8:47 AM EDT) TSH Receptor Antibody <1.10 <=1.75 IU/L 01/19/2025 1:20 AM EDT RONAK Arccos [employer]) Serum Venous blood specimen / Unknown 01/17/2025 8:47 AM EDT 01/17/2025 8:47 AM EDT Patti NUNEZ) - 01/19/2025 1:20 AM EDT Performed By: [employer] [address] [place] [address] Sheltered Workshop Worker: Wilber Pardo MD, PhD CLIA Number: [id number] Saskia Garcia MD LAB BLOOD ORDERABLES Final Resul t Performing Organization Address [facility] de Phone Number [facility]) [address] [place] [address] * Thyroid stimulating immunoglobulin (01/17/2025 8:47 AM EDT) TSI Result 0.11 <=0.54 IU/L 01/19/2025 12:49 AM EDT RONAK DAVIDSON [employer]) Serum Venous blood specimen / Unknown 01/17/2025 [...] medical history, and other findings. Performed By: [employer] [facility] [address] [place] [address] Sheltered Workshop Worker: Wilber Pardo MD, PhD CLIA Number: [id number] Saskia Garcia MD LAB BLOOD ORDERABLES Final Resul t Performing Organization Address City/[facility]/ZIP Co de Phone Number [employer]) [place] [address] * TSH (01/17/2025 8:47 AM EDT) Only [...] ORDERABLES Final Resu lt Performing Organization Address [facility] Phone Number [facility] [address] [place] [address] * T4, free (01/17/2025 8:47 AM EDT) [...] ORDERABLES Final Resu lt Performing Organization Address City/[facility] Co de Phone Number [facility] [address] [place] [address] * XR Abdomen 1 View (12/28/2024 9:40 AM EDT) Anatomical Region Laterality Modality Body Digital Radiogra phy Estuardo Jon MD IMG XR PROCEDURES Final Result * Cytomegalovirus (CMV) Quantitative PCR (12/15/2024 3:29 PM EDT) Pathologist [facility] Cytomegalovirus (CMV) Quantitative Interpretation Not Detected Not Detected 12/19/2024 2:26 PM EDT [facility] Blood Venous blood specimen / Unknown Venipuncture / Unknown 12/15/2024 3:29 PM EDT 12/15/2024 3:30 PM EDT Narrative [facility] - 12/19/2024 2:26 PM EDT The [employer] M2000 CMV test is a Real Time [...] ORDERABLES Final Res ult Performing Organization Address [facility]/[place] [address] * T3 (12/15/2024 3:29 PM EDT) Only the most recent of2 resultswithin the time period is included. Pathologist [facility] T3, Serum 177 87 - 187 ng/dL 12/15/2024 4:54 PM EDT [facility] Blood Venous blood specimen / Unknown Venipuncture / Unknown 12/15/2024 3:29 PM EDT 12/15/2024 3:30 PM EDT [facility] CELESTE LAB BLOOD ORDERABLES Final Res ult Performing Organization Address City/[facility]/ZIP Co de Phone Number [facility] [address] [place] [address] * Brayan-Holguin virus VCA, IgM (12/15/2024 3:29 PM EDT) EBV ANTIBODY TO VIRAL CAPSID ANTIGEN IGM <10.0 0.0 - 43.9 U/mL 12/18/2024 11:09 AM EDT [employer]) Blood Venous blood specimen / Unknown Venipuncture / Unknown 12/15/2024 3:29 PM EDT 12/15/2024 3:30 PM EDT Narrative [employer]) - 12/18/2024 11:09 AM EDT INTERPRETIVE INFORMATION: Brayan-Holguin Virus Antibody to Viral Capsid Antigen, IgM 35.9 U/mL or less.......Not Detected 36.0-43.9 U/mL..........Indeterminate - Repeat testing in 10-14 days may be helpful. 44.0 U/mL or greater....Detected Performed By: [employer] [facility] [address] [place] [address] Sheltered Workshop Worker: Wilber Pardo MD, PhD CLIA Number: [id number] us [facility] LAB BLOOD ORDERABLES Final Res ult [employer]) [address] [place] [address] * (ABNORMAL) Brayan Holguin IgG Ab (12/15/2024 3:29 PM EDT) Pathologist [facility] EBV ANTIBODY TO VIRAL CAPSID ANTIGEN IGG 185.0(H) 0.0 - 21.9 U/mL 12/18/2024 11:11 AM EDT [employer]) Blood Venous blood specimen / Unknown Venipuncture / Unknown 12/15/2024 3:29 PM EDT 12/15/2024 3:30 PM EDT Narrative [employer]) - 12/18/2024 11:11 AM EDT INTERPRETIVE INFORMATION: Brayan-Holguin Virus Antibody to Viral Capsid Antigen, IgG 17.9 U/mL or less.......Not Detected 18.0-21.9 U/mL..........Indeterminate - Repeat testing in 10-14 days may be helpful. 22.0 U/mL or greater....Detected Performed By: [employer] [facility] [address] [id number] Sheltered Workshop Worker: Wilber Pardo MD, PhD CLIA Number: [id number] [facility] LAB BLOOD ORDERABLES Final Res ult Performing Organization Address [facility] Co de Phone Number [facility]) [address] [place] [address] * Prothrombin Time/INR (12/15/2024 3:29 PM EDT) Prothrombin Time 13.7 12.0 - 14.3 sec LAB COAGULATION METHOD 12/15/2024 5:05 PM EDT [facility] INR 1.0 0.9 - 1.1 LAB COAGULATION METHOD 12/15/2024 5:05 PM EDT [facility] Blood Venous blood specimen / Unknown Venipuncture / Unknown 12/15/2024 3:29 PM EDT 12/15/2024 3:30 PM EDT Narrative [facility] - 12/15/2024 5:05 PM EDT OPTIMAL INR RANGES FOR PATIENT ON ORAL ANTICOAGULANT THERAPY Prevention of venous thromboembolism INR 2.0 to 3.0 In patients with heart disease: Atrial fibrillation INR 2.0 to 3.0 Valvular heart disease INR 2.0 to 3.0 Tissue heart valves INR 2.0 to 3.0 Mechanical prosthetic valves INR 2.5 to 3.5 Prevention of recurrent ND INR 2.5 to 3.5 [facility] CELESTE LAB BLOOD ORDERABLES Final Res ult Performing Organization Address City/[facility]/ZIP Co de Phone Number [facility] [address] [place] [address] * (ABNORMAL) CBC and Differential (12/15/2024 3:29 PM EDT) WBC Count 5.38 3.70 - 10.30 10*3/uL LAB HEMATOLOGY METHOD 12/15/2024 4:38 PM EDT [facility] RBC Count 4.81 3.90 - 5.20 10*6/uL LAB HEMATOLOGY METHOD 12/15/2024 4:38 PM EDT [facility] HGB 12.6 11.2 - 15.7 g/dL LAB HEMATOLOGY METHOD 12/15/2024 4:38 PM EDT [facility] HCT 39.7 34.0 - 45.0 % LAB HEMATOLOGY METHOD 12/15/2024 4:38 PM EDT [facility] Platelet Count 311 155 - 369 10*3/uL LAB HEMATOLOGY METHOD 12/15/2024 4:38 PM EDT [facility] MCV 83 79 - 98 fL LAB HEMATOLOGY METHOD 12/15/2024 4:38 PM EDT [facility] MCH 26.2 26.0 - 32.0 pg LAB HEMATOLOGY METHOD 12/15/2024 4:38 PM EDT [facility] MCHC 31.7 30.7 - 35.5 g/dL LAB HEMATOLOGY METHOD 12/15/2024 4:38 PM EDT [facility] RDW 12.2 11.5 - 14.5 % LAB HEMATOLOGY METHOD 12/15/2024 4:38 PM EDT [facility] MPV 11.2 8.8 - 12.5 fL LAB HEMATOLOGY METHOD 12/15/2024 4:38 PM EDT [facility] nRBC 0.0 <=0.0 per 100 WBCs LAB HEMATOLOGY METHOD 12/15/2024 4:38 PM EDT [facility] Differential Type Automated LAB HEMATOLOGY METHOD 12/15/2024 4:38 PM EDT [facility] Neutrophils % 61 % LAB HEMATOLOGY METHOD 12/15/2024 4:38 PM EDT [facility] Lymphocytes % 32 % LAB HEMATOLOGY METHOD 12/15/2024 4:38 PM EDT [facility] Monocytes % 5 % LAB HEMATOLOGY METHOD 12/15/2024 4:38 PM EDT [facility] Eosinophils % 1 % LAB HEMATOLOGY METHOD 12/15/2024 4:38 PM EDT [facility] Basophils % 1 % LAB HEMATOLOGY METHOD 12/15/2024 4:38 PM EDT [facility] Immature Granulocytes % 0 % LAB HEMATOLOGY METHOD 12/15/2024 4:38 PM EDT [facility] Neutrophils Absolute 3.33 1.60 - 6.10 10*3/uL LAB HEMATOLOGY METHOD 12/15/2024 4:38 PM EDT [facility] Lymphocytes Absolute 1.70 1.20 - 3.90 10*3/uL LAB HEMATOLOGY METHOD 12/15/2024 4:38 PM EDT [facility] Monocytes Absolute 0.25(L) 0.30 - 0.90 10*3/uL LAB HEMATOLOGY METHOD 12/15/2024 4:38 PM EDT [facility] Eosinophils Absolute 0.03 0.00 - 0.50 10*3/uL LAB HEMATOLOGY METHOD 12/15/2024 4:38 PM EDT [facility] Basophils Absolute 0.05 0.00 - 0.10 10*3/uL LAB HEMATOLOGY METHOD 12/15/2024 4:38 PM EDT [facility] Immature Granulocytes Absolute 0.02 0.00 - 0.06 10*3/uL LAB HEMATOLOGY METHOD 12/15/2024 4:38 PM EDT [facility] Blood Venous blood specimen / Unknown Venipuncture / Unknown 12/15/2024 3:29 PM EDT 12/15/2024 3:30 PM EDT Narrative [facility] - 12/15/2024 4:38 PM EDT Therapeutic decision making should be based on absolute values, rather than percentages. us Silverio CELESTE LAB BLOOD ORDERABLES Final Res ult [facility] [address] [place] [address] * (ABNORMAL) Comprehensive Metabolic Panel, Plasma (12/15/2024 3:29 PM EDT) Only the most recent of2 resultswithin the time period is included. Glucose, Plasma 84 74 - 99 mg/dL 12/15/2024 4:54 PM EDT [facility] BUN, Plasma 8 7 - 21 mg/dL 12/15/2024 4:54 PM EDT [facility] Creatinine, Plasma 0.60 0.60 - 1.10 mg/dL 12/15/2024 4:54 PM EDT [facility] BUN/Creatinine Ratio 13 12/15/2024 4:54 PM EDT [facility] Sodium, Plasma 140 136 - 145 mmol/L 12/15/2024 4:54 PM EDT [facility] Potassium, Plasma 4.1 3.6 - 4.9 mmol/L 12/15/2024 4:54 PM EDT [facility] Chloride, Plasma 105 97 - 107 mmol/L 12/15/2024 4:54 PM EDT [facility] CO2, Plasma 21(L) 22 - 29 mmol/L 12/15/2024 4:54 PM EDT [facility] Anion Gap 14 6 - 16 mmol/L 12/15/2024 4:54 PM EDT [facility] Total Calcium, Plasma 9.4 8.9 - 10.2 mg/dL 12/15/2024 4:54 PM EDT [facility] Total Protein 8.1(H) 6.3 - 7.9 g/dL 12/15/2024 4:54 PM EDT [facility] Albumin, Plasma 4.6 3.5 - 5.2 g/dL 12/15/2024 4:54 PM EDT [facility] AST, Plasma 16 10 - 35 U/L 12/15/2024 4:54 PM EDT [facility] ALT, Plasma 23 10 - 35 U/L 12/15/2024 4:54 PM EDT [facility] Alkaline Phosphatase, Plasma 58 35 - 104 U/L 12/15/2024 4:54 PM EDT [facility] Total Bilirubin, Plasma 0.7 0.2 - 1.1 mg/dL 12/15/2024 4:54 PM EDT [facility] eGFRcr 127.1 mL/min/1.7 3m*2 12/15/2024 4:54 PM EDT [facility] Comment:Reported eGFRcr in m L/min/1.73m2 is based the CKD-EPI 2020 equation that does not use a race coefficient. Blood Venous blood specimen / Unknown Venipuncture / Unknown 12/15/2024 3:29 PM EDT 12/15/2024 3:30 PM EDT [facility] CELESTE LAB BLOOD ORDERABLES Final Res ult [facility] [address] [place] [address] * Patency Capsule (12/07/2024 7:03 AM EDT) [...] <6 <14 ng/L 11/20/2024 9:47 PM EDT [facility] Blood Venous blood specimen / Unknown Venipuncture / Unknown 11/20/2024 9:17 PM EDT 11/20/2024 9:20 PM EDT us Shani Shankar DO LAB BLOOD ORDERABLES Final Re sult [facility] [address] [place] [address] * CBC (11/20/2024 9:17 PM EDT) Pathologist [facility] WBC Count 4.69 3.70 - 10.30 10*3/uL LAB HEMATOLOGY METHOD 11/20/2024 9:23 PM EDT [facility] RBC Count 4.26 3.90 - 5.20 10*6/uL LAB HEMATOLOGY METHOD 11/20/2024 9:23 PM EDT [facility] HGB 11.8 11.2 - 15.7 g/dL LAB HEMATOLOGY METHOD 11/20/2024 9:23 PM EDT [facility] HCT 35.8 34.0 - 45.0 % LAB HEMATOLOGY METHOD 11/20/2024 9:23 PM EDT [facility] Platelet Count 197 155 - 369 10*3/uL LAB HEMATOLOGY METHOD 11/20/2024 9:23 PM EDT [facility] MCV 84 79 - 98 fL LAB HEMATOLOGY METHOD 11/20/2024 9:23 PM EDT [facility] MCH 27.7 26.0 - 32.0 pg LAB HEMATOLOGY METHOD 11/20/2024 9:23 PM EDT [facility] MCHC 33.0 30.7 - 35.5 g/dL LAB HEMATOLOGY METHOD 11/20/2024 9:23 PM EDT [facility] RDW 12.5 11.5 - 14.5 % LAB HEMATOLOGY METHOD 11/20/2024 9:23 PM EDT [facility] MPV 11.6 8.8 - 12.5 fL LAB HEMATOLOGY METHOD 11/20/2024 9:23 PM EDT [facility] nRBC 0.0 <=0.0 per 100 WBCs LAB HEMATOLOGY METHOD 11/20/2024 9:23 PM EDT [facility] Blood Venous blood specimen / Unknown Venipuncture / Unknown 11/20/2024 9:17 PM EDT 11/20/2024 9:20 PM EDT Three Ring DO LAB BLOOD ORDERABLES Final Re sult Performing Organization Address City/[facility]/ZIP Co de Phone Number [facility] [address] [place] [address] * hCG qualitative (11/20/2024 9:17 PM EDT) Test Negative Negative 11/20/2024 10:02 PM EDT [facility] Blood Venous blood specimen / Unknown Venipuncture / Unknown 11/20/2024 9:17 PM EDT 11/20/2024 9:20 PM EDT Narrative [facility] - 11/20/2024 10:02 PM EDT Reference Range: Males and non- females: Negative. [employer] LAB BLOOD ORDERABLES Final Re sult Performing Organization Address [facility] Co de Phone Number [facility] [address] [place] [address] * Phosphorus (11/20/2024 9:17 PM EDT) Phosphorus, Plasma 3.5 2.5 - 4.5 mg/dL 11/20/2024 10:02 PM EDT [facility] Blood Venous blood specimen / Unknown Venipuncture / Unknown 11/20/2024 9:17 PM EDT 11/20/2024 9:20 PM EDT Prestad[place] DO LAB BLOOD ORDERABLES Final Re sult Performing Organization Address City/[facility]/ZIP Co de Phone Number [facility] [address] [place] [address] * Magnesium (11/20/2024 9:17 PM EDT) Pathologist [facility] Magnesium, Plasma 2.1 1.9 - 2.4 mg/dL 11/20/2024 10:02 PM EDT [facility] Blood Venous blood specimen / Unknown Venipuncture / Unknown 11/20/2024 9:17 PM EDT 11/20/2024 9:20 PM EDT Shani Shankar DO LAB BLOOD ORDERABLES Final Re sult [facility] [address] [place] [address] * (ABNORMAL) Blood gas panel, venous (11/20/2024 9:17 PM EDT) Pathologist [facility] pH, Venous 7.38 7.32 - 7.43 LAB HEMATOLOGY METHOD 11/20/2024 9:21 PM EDT [facility] pCO2, Venous 44 37 - 52 mmHg LAB HEMATOLOGY METHOD 11/20/2024 9:21 PM EDT [facility] pO2, Venous 26 25 - 40 mmHg LAB HEMATOLOGY METHOD 11/20/2024 9:21 PM EDT [facility] SO2, Measured, Venous 44(L) 65 - 80 % LAB HEMATOLOGY METHOD 11/20/2024 9:21 PM EDT [facility] Base Excess, Venous 0.2 -2.0 - 3.0 mmol/L LAB HEMATOLOGY METHOD 11/20/2024 9:21 PM EDT [facility] Bicarbonate, Calculated, Venous 26 22 - 26 mmol/L LAB HEMATOLOGY METHOD 11/20/2024 9:21 PM EDT [facility] Hematocrit, Whole Blood 37.4 34.0 - 45.0 % LAB HEMATOLOGY METHOD 11/20/2024 9:21 PM EDT [facility] Sodium, Whole Blood 141 136 - 145 mmol/L LAB HEMATOLOGY METHOD 11/20/2024 9:21 PM EDT [facility] Potassium, Whole Blood 4.0 3.6 - 4.9 mmol/L LAB HEMATOLOGY METHOD 11/20/2024 9:21 PM EDT [facility] Chloride, Whole Blood 110(H) 97 - 107 mmol/L LAB HEMATOLOGY METHOD 11/20/2024 9:21 PM EDT [facility] Glucose, Whole Blood 98 74 - 99 mg/dL LAB HEMATOLOGY METHOD 11/20/2024 9:21 PM EDT [facility] Lactate, Venous, Whole Blood 1.0 0.5 - 2.2 mmol/L LAB HEMATOLOGY METHOD 11/20/2024 9:21 PM EDT [facility] Ionized Calcium, Whole Blood 4.8 4.6 - 5.1 mg/dL LAB HEMATOLOGY METHOD 11/20/2024 9:21 PM EDT [facility] Blood Venous blood specimen / Unknown Venipuncture / Unknown 11/20/2024 9:17 PM EDT 11/20/2024 9:20 PM EDT us Shani Shankar DO LAB BLOOD ORDERABLES Final Re sult Performing Organization Address City/[facility]/ZIP Co de Phone Number [facility] [address] [place] [address] * EKG now - STAT (adult) (11/20/2024 8:52 PM EDT) EKG DIAGNOSIS CLASS Abnormal MUSE ECG Ventricular Rate 83 BPM MUSE ECG Atrial Rate 83 BPM MUSE ECG AZ Interval 128 ms MUSE ECG QRSD Interval 72 ms MUSE ECG QT Interval 342 ms MUSE ECG QTC Interval 401 ms MUSE ECG P [place] 60 degrees MUSE ECG R [place] 62 degrees MUSE ECG T Wave [place] 21 degrees MUSE ECG Diagnosis Sinus rhythm [...] ORDERABLES Susannah l Result Performing Organization Address City/[facility]/ZIP Co de Phone Number [facility] [address] [place] [address] * Hepatitis C Antibody - ED (02/07/2024 10:11 PM EDT) Hepatitis C Antibody Negative Negative 02/07/2024 11:11 PM EDT [facility] Blood Venous blood specimen / Unknown Venipuncture / Unknown 02/07/2024 10:11 PM EDT 02/07/2024 10:18 PM EDT us Mark Roger MD LAB BLOOD ORDERABLES Final Resu lt Performing Organization Address City/[facility] de Phone Number [facility] [address] [place] [address] from Last 3 Months or Most Recently Relevant to Health Maintenance Additional Health Concerns Active Problems Noted Date Diagnosed Date CPM S22 PP LABOR (OBSTETRICS) 02/24/2024 Insurance [place] Advance Directives * Full Code (Latest Code [...] Patient has decision-making capacity? Yes Care Teams Occupational Nurse Relationship Specialty [place] [address] [place] [address] PCP - General 11/16/24 Angela Oleary, RN [facility] Registered Nurse Cardiology 02/17/24
--- OUTSIDE RECORDS SUMMARY | 2025-02-04 08:19 | XMS_ITS | Encounter Summary ---
Author Organization Healthcare Address [address] [place] [address] Care Team Providers Care Financial Internship Name Role Phone Molly Louis MD Primary Care Provider Angela Oleary RN Unavailable Unavailable Rey Wyatt MD Primary Care Provider [phone] Reason for Visit * Reason Onset Date Comments Med Refill 03/03/2024 Encounter Details Date Type Department Care Team ([facility] Contact Info) Description 03/03/2024 Refill Medical Office Building Obstetrics and Gynecology [address], [address] [place] [address] AnimasEarle Villagomez MD [address] [place] [address] Supervision of high risk in [...] How often do you attend chur or druze services? Never 02/22/2024 Do you [...] Recorded Patient Health Questionnaire-2 Score 0 02/17/2024 [facility] - [...] in a penitentiary (including now)? No 02/09/2024 [place] Depression Scale Answer Date Recorded [place] Depression Scale Total 8 02/22/2024 The thought [...] requesting to speak with a nurse- see [employer] [facility] for details about symptoms she is experiencing. * Telephone Encounter - Luh Keenan RN - 03/04/2024 1:56 PM EDT Patient has refills on file. Needs to call pharmacy. Luh Keenan, RN documented in this encounter Plan of Treatment Upcoming Encounters Date Type Department Care Team (Late st Contact Info) Description 02/10/2025 10:00 AM EDT Office [facility] [address] [place] [phone] Rachel Khan PA [address] [facility] [address] [place] [address] 02/16/2025 1:20 PM EDT Office Visit [facility] [place] [address], [address] [place] [address] Courtney Torres MD [address] [place] [address] 03/15/2025 3:30 PM EDT Consult [facility] [address], [address] [place] [address] Kendy Sanchez APRN [address] [place] [address] 04/17/2025 2:00 PM EDT Office Visit [facility] Medicine Specialties [address], 2[address] [place] [address] Silverio Tam PA [address] [place] [address] documented as of this encounter [...] as of this encounter Care Teams Financial Internship Relationship Specialty Start Date End Date Molly Louis MD [address] [place] [address] PCP - General Family Medicine 02/09/24 11/15/24 Rey Wyatt MD [address] [place] [address] [place] [address] PCP - General 11/16/24 Angela Oleary, RN [facility] Registered Nurse Cardiology 02/17/24 documented as of this encounter
--- OUTSIDE RECORDS SUMMARY | 2025-02-04 08:19 | XMS_ITS | Referral Summary ---
Author Organization [employer] ([place], [place], [place], [place]) Address [address] [place] [address] Care Team Providers Care Jogger Operator Name Role Phone Molly Louis MD Primary Care Provider [phone] Allergies Active Allergy Reactions Criticality Noted Date [...] Date Guerrero rded Speak language other than Albanian at home Not on file 08/13/2023 Want [...] on file Medical Devices Implanted Type Area Armed Guard Device Identifier Shelf Expiration Date Model / Serial / Lot K-Wire [id number] - [id number] Implanted:Qty: 1 on 08/04/2022 by Rex Rene MD at [facility] IMPLANTS Right: Hand [employer] [id number] / / Wire K-Wire 1.6mm [id number] - [id number] Implanted:Qty: 1 on 08/04/2022 by Rex Rene MD at [facility] IMPLANTS Right: Hand BUCK MED GRP:BUCK MED TECH 2 / / [place] [address] [place] [address] Advance Directives For more information, please contact: [phone] * Full Code (Latest Code Status on File) Date Activated Date Inactivated Comments 08/04/2022 6:03 AM 08/04/2022 11:35 AM Care Teams Jogger Operator Relationship Specialty Start Date End Date Molly Louis MD [address] [place] [address] [address] [place] [address] PCP - General 08/22/24
--- OUTSIDE RECORDS SUMMARY | 2025-02-04 08:19 | XMS_ITS | Encounter Summary ---
Author Organization Healthcare Address [address] [place] [address] Care Team Providers Care Music Ministries Director Name Role Phone Angela Oleary RN Unavailable Unavailable Rey Wyatt MD Primary Care Provider [phone] Encounter Details Date Type Department Care Team (Late st Contact Info) Description 12/20/2024 Results Follow-Up [facility] Medicine Specialties [address], [address] [place] [address] Silverio Tam PA [address] [place] [address] Social History Tobacco Use Types [...] often do you attend chur ch or oriental orthodox services? Never 02/22/2024 Do [...] Recorded Patient Health Questionnaire-2 Score 0 12/15/2024 [facility] - Occupational Stress Questionnaire Answer Date [...] in a fdc (including now)? No 02/09/2024 [place] Depression Scale [...] drink first t casi in the morning (EYE-CUFFER) to steady your nerves or to get [...] 10:00 AM EDT Office Visit [facility] Endocrinology [address] [place] [address] Rachel Khan PA [address] [place] [address] 02/16/2025 1:20 PM EDT Office Visit [facility] [place] [address], [address] [place] [address] Courtney Torres MD [address] [place] [address] 03/15/2025 3:30 PM EDT Consult [facility] [address], 1[address] [place] [address] Kendy Sanchez APRN [address] [place] [address] 04/17/2025 2:00 PM EDT Office Visit [facility] Medicine Specialties [address], 2[address] [place] [address] Silverio Tam PA [address] [place] [address] documented as of this encounter [...] as of this encounter Care Teams Music Ministries Director Relationship Specialty Start Date End Date Rey Wyatt MD [address] [facility] [address] [place] [address] PCP - General 11/16/24 Angela Oleary, RN [facility] Registered Nurse Cardiology 02/17/24 documented as of this encounter
--- OUTSIDE RECORDS SUMMARY | 2025-02-04 08:19 | XMS_ITS | Encounter Summary ---
Author Organization Healthcare Address [address] [place] [address] Care Team Providers Care Communications Maintainer Name Role Phone Angela Olaery RN Unavailable Unavailable Rey Wyatt MD Primary Care Provider Encounter Details Date Type Department Care Team (Late st Contact Info) Description 12/28/2024 Orders Only [facility] Specialties [address], [address]nd [place] [phone] Keya Minor RN MEDICINE SPECIAL[facility]IES CLINIC Diarrhea, [...] often do you attend chur ch or alevism services? Never 02/22/2024 Do you belong to [...] Recorded Patient Health Questionnaire-2 Score 0 12/15/2024 [facility] Occupat ional Health - [...] in a fdc (including now)? No 02/09/2024 [place] Depression Scale Answer Date Recorded [place] Depression Scale Total 6 08/08/2024 The thought [...] drink first t casi in the morning (EYE-ECONOMICS INSTRUCTOR) to steady your nerves or to [...] Description 02/10/2025 10:00 AM EDT Office Visit [facility] Endocrinology [address] [place] [address] Rachel Khan PA [address] [place] [address] 02/16/2025 1:20 PM EDT Office Visit [facility] [place] [address], [address] [place] [address] Courtney Torres MD [address] [place] [address] 03/15/2025 3:30 PM EDT Consult [facility] [address], 1[address] [place] [address] Kendy Sanchez APRN [address] [place] [address] 04/17/2025 2:00 PM EDT Office Visit [facility] Medicine Specialties [address], 2[address] [place] [address] Silverio Tam PA [address] [place] [address] documented [...] documented as of this encounter Care Teams Communications Maintainer Relationship Specialty Start Date End Date Rey Wyatt MD [address] [place] [address] PCP - General 11/16/24 Angela Oleary, RN [facility] Registered Nurse Cardiology 02/17/24 documented as of this encounter
--- OUTSIDE RECORDS SUMMARY | 2025-02-04 08:19 | XMS_ITS | Encounter Summary ---
Author Organization Healthcare Address [address] [place] [address] Care Team Providers Care Floor Attendant Name Role Phone Angela Oleary RN Unavailable Unavailable Rey Wyatt MD Primary Care Provider [phone] Encounter Details Date Type Department Care Team (Late st Contact Info) Description 12/30/2024 Orders Only [facility] Medicine Specialties [address], 2nd [place] [address] Silverio Tam PA [address] [place] [address] Social History Tobacco Use Types [...] Score 0 12/15/2024 [facility] Stress Questionnaire Answer [...] in a longterm (including now)? No 02/09/2024 [place] Depression Scale Answer Date Recorded [place] Depression Scale Total 6 08/08/2024 The thought [...] drink first t casi in the morning (EYE-TAX EXAMINER) to steady your nerves or to get rid of a hangover? 0 07/16/2024 CAGE Questionnaire Score 0 024 Utilities Answer Date Recorded In the past 12 months has th e [place], gas, oil, or water company threatened to [...] EDT Office Visit [facility] Endocrinology [address] [place] [address] Rachel Khan PA [address] [place] [address] 02/16/2025 1:20 PM EDT Office Visit [facility] [place] [address], [address] [place] [address] Courtney Torres MD [address] [place] [address] 03/15/2025 3:30 PM EDT Consult [facility] [address], 1[address] [place] [address] Kendy Sanchez APRN [address] [place] [address] 04/17/2025 2:00 PM EDT Office Visit [facility] Medicine Specialties [address], 2[address] [place] [address] Silverio Tam PA [address] [place] [address] documented as of this encounter [...] documented as of this encounter Care Teams Floor Attendant Relationship Specialty Start Date End Date Rey Wyatt MD [address] [facility] [address] [place] [address] PCP - General 11/16/24 Angela Oleary, RN [facility] Registered Nurse Cardiology 02/17/24 documented as of this encounter
--- OUTSIDE RECORDS SUMMARY | 2025-02-04 08:19 | XMS_ITS | Encounter Summary ---
Author Organization Healthcare Address [address] [place] [address] Care Team Providers Care Bias Cutting Machine Operator Name Role Phone Angela Oleary RN Unavailable Unavailable Rey Wyatt MD Primary Care Provider [phone] Encounter Details Date Type Department Care Team (Late st Contact Info) Description 12/28/2024 Results Follow-Up [facility] Medicine Specialties [address], [address] [place] [address] Estuardo Jon MD [address] [place] [address] Social History Tobacco Use Types [...] often do you attend chur ch or hinduism services? Never 02/22/2024 Do you belong to [...] Recorded Patient Health Questionnaire-2 Score 0 12/15/2024 [facility] - Occupational Stress Questionnaire Answer Date [...] in a alf (including now)? No 02/09/2024 [place] Depression Scale Answer Date Recorded [place] Depression Scale Total 6 08/08/2024 The thought [...] drink first t casi in the morning (EYE-PORCELAIN ENAMEL REPAIRER) to steady your nerves or to [...] Office Visit [facility] Endocrinology [address] [place] [address] Rachel Khan PA [address] [facility] [address] [place] [address] 02/16/2025 1:20 PM EDT Office Visit [facility] [place] [address], [address] [place] [address] Courtney Torres MD [address] [place] [address] 03/15/2025 3:30 PM EDT Consult [facility] [address], 1[address] [place] [address] Kendy Sanchez, TRISTAN [address] [place] [address] 04/17/2025 2:00 PM EDT Office Visit [facility] Medicine Specialties [address], [address] [place] [address] Silverio Tam PA [address] [place] [address] documented as of this encounter Goals Goal [...] documented as of this encounter Care Teams Bias Cutting Machine Operator Relationship Specialty Start Date End Date Rey Wyatt MD [address] [place] [address] PCP - General 11/16/24 Angela Oleary, RN [facility] Registered Nurse Cardiology 02/17/24 documented as of this encounter
--- OUTSIDE RECORDS SUMMARY | 2025-02-04 08:19 | XMS_ITS | Encounter Summary ---
Author Organization Healthcare Address [address] [place] [id number] Care Team Providers Care Industrial Tech Instructor Name Role Phone Angela Oleary RN Unavailable Unavailable Rey Wyatt MD Primary Care Provider [phone] Encounter Details Date Type Department Care Team (Late st Contact Info) Description 01/18/2025 Results Follow-Up [facility] Endocrinology [address] [place] [address] MunugotiHugohitha [address] [place] [id number] Social History Tobacco Use Types Packs/Day Years [...] 12/15/2024 [facility]at ional [facility] - Occupational Stress Questionnaire Answer [...] in a jail (including now)? No 02/09/2024 [place] Depression Scale Answer Date Recorded [place] Depression Scale Total 6 08/08/2024 The thought [...] drink first t casi in the morning (EYE-AMUSEMENT PARK RIDE MECHANIC) to steady your nerves or to [...] Visit [facility] Endocrinology [address] [place] [address] Rachel Khan PA [address] [place] [address] 02/16/2025 1:20 PM EDT Office Visit [facility] [place] [address] [facility], [address] [place] [address] Courtney Torres MD [address] [facility] [address] [place] [address] 03/15/2025 3:30 PM EDT Consult [facility] [address], 1[address] [place] [address] Kendy Sanchez APRN [address] [place] [address] 04/17/2025 2:00 PM EDT Office Visit [facility] Medicine Specialties [address], 2[address] [place] [address] Silverio Tam PA [address] [place] [address] Scheduled Orders Name Type Priority [...] as of this encounter Care Teams Industrial Tech Instructor Relationship Specialty Start Date End Date Rey Wyatt MD [address] [place] [address] PCP - General 11/16/24 Angela Oleary, RN [facility] Registered Nurse Cardiology 02/17/24 documented as of this encounter
--- OUTSIDE RECORDS SUMMARY | 2025-02-04 08:19 | XMS_ITS | Encounter Summary ---
Author Organization Healthcare Address [address] [place] [address] Care Team Providers Care Lathe Mechanic Name Role Phone Molly Louis MD Primary Care Provider [phone] Angela Oleary RN Unavailable Unavailable Rey Wyatt MD Primary Care Provider [phone] Reason for Visit * Reason Onset Date Comments Med Refill 07/19/2024 Encounter Details Date Type Department Care Team (Late st Contact Info) Description 07/19/2024 [facility]ill [facility] [address], [address] [place] [address] Paris Marion MD [address] [place] [address] Social History Tobacco Use Types Packs/Day Years [...] How often do you attend chur or uatsdin services? Never 02/22/2024 Do you belong to any clubs o r organizations such as caodaism groups, unions, fraternal or athletic groups, or [...] Recorded Patient Health Questionnaire-2 Score 0 06/22/2024 [facility] [...] in a fci (including now)? No 02/09/2024 [place] Depression Scale Answer Date Recorded [place] Depression Scale Total 8 02/22/2024 The thought [...] drink first t casi in the morning (EYE-COMMERCIAL REAL ESTATE MANAGER) to steady your nerves or to [...] EDT Office Visit [facility]ocr[facility] [address] [place] [address] Rachel Khan PA [address] [facility] [address] [place] [address] 02/16/2025 1:20 PM EDT Office Visit [facility] [place] [address], [address] [place] [address] Courtney Torres MD [address] [place] [address] 03/15/2025 3:[address] [facility] [address], 1[address] [place] [address] Kendy Sanchez APRN [address] [place] [address] 04/17/2025 2:00 PM EDT Office Visit [facility] Medicine Specialties [address], [address] [place] [address] Silverio Tam PA [address] [place] [address] documented as of this encounter Goals Goal [...] documented as of this encounter Care Teams Lathe Mechanic Relationship Specialty Start Date End Date Molly Louis MD [address] [place], [place] [id number] PCP - General Family Medicine 02/09/24 11/15/24 Rey Wyatt MD [address] [place] [address] [place] [address] PCP - General 11/16/24 Angela Oleary, RN [facility] Registered Nurse Cardiology 02/17/24 documented as of this encounter
--- OUTSIDE RECORDS SUMMARY | 2025-02-04 08:19 | XMS_ITS | Encounter Summary ---
Author Organization Healthcare Address [address] [place] [address] Care Team Providers Care Blankbook Stitching Machine Operator Name Role Phone Pcp, No Primary Care Provider UnavailMolly Newman MD Primary Care Provider [phone] Angela Oleary RN Unavailable Unavailable Rey Wyatt MD Primary Care Provider [phone] Encounter Details Date Type Department Care Team (Late Contact Info) Description 01/22/2024 Orders Only External Location [address] [place] [address] Provider, External Social History Tobacco Use Types [...] Description 02/10/2025 10:00 AM EDT Office Visit [facility] Endocrinology [address] [place] [address] Rachel Khan PA [address] [place] [address] 02/16/2025 1:20 PM EDT Office Visit [facility] [place] [address], [address] [place] [address] Courtney Torres MD [address] [place] [address] 03/15/2025 3:[address] [facility] [address] 1[address] [place] [address] Kendy Sanchez APRN [address] [place] [address] 04/17/2025 2:00 PM EDT Office Visit [facility] Medicine Specialties [address] [place] [address] Silverio Tam PA [address] [place] [address] documented as of this encounter [...] documented as of this encounter Care Teams Blankbook Stitching Machine Operator Relationship Specialty Start Date End Date Pcp, No [address] [place] [address] PCP - General Family Medicine 01/22/24 02/08/24 Molly Louis MD [address] [place] [address] PCP - General Family Medicine 02/09/24 11/15/24 [place] [address] [place] [address] [address] [place] [address] PCP - General 11/16/24 Angela Oleary, RN [facility] Registered Nurse Cardiology 02/17/24 documented as of this encounter
--- NOTE | 2025-02-04 08:22 | XR_ITS ---
PROCEDURE INFORMATION: Exam: XR Chest Exam date and time: 02/04/2025 9:07 AM Age: 24 years old Clinical indication: Shortness of breath and other: Cp to back; Additional info: Chest pain TECHNIQUE: Imaging protocol: Radiologic exam of the chest. Views: 2 views. COMPARISON: CR XR CHEST PORTABLE 11/04/2024 6:52 PM FINDINGS: Lungs: Unremarkable. No consolidation. Pleural spaces: Unremarkable. No pleural effusion. No pneumothorax. Heart/Mediastinum: Unremarkable. No cardiomegaly. Bones/joints: Unremarkable. IMPRESSION: No acute findings.
[2025-02-04 08:29] LABS: Hematocrit 43.0 % (37.0-47.0); Hemoglobin 13.8 g/dL (12.2-16.2); Immature Granulocytes % 0 %; Mean Corpuscular HGB Conc 32.1 g/dL (31.8-35.4); Mean Corpuscular Hemoglobin 26.2 pg (27.0-31.2); Mean Corpuscular Volume 81.6 fl (81-99); Nucleated Red Blood Cells % 0 %; Platelet Count 179 K/mm3 (142-424); Red Blood Count 5.27 M/mm3 (4.20-5.40); Red Cell Distribution Width-SD 41.9 fL; White Blood Count 5.8 K/mm3 (4.8-10.8)
--- NOTE | 2025-02-04 08:34 | HMH.EDCP ---
Discharge Plan Disposition Patient Disposition: Home, Self-Care Condition: Good Prescriptions Prescriptions: New pantoprazole 40 mg tablet,delayed release (DR/EC) 40 mg PO DAILY Qty: 30 1RF No Action ondansetron 4 mg tablet,disintegrating 4 mg PO Q8HP PRN Patient Comments: DISSOLVE TWO TABLETS ON THE TONGUE EVERY EIGHT HOURS NEEDED FOR NAUSEA OR VOMITING famotidine 20 mg tablet 20 mg PO DAILY buspirone 5 mg tablet 5 mg PO HS Qty: 30 2RF propranolol 20 mg tablet 30 mg PO TID 30 Days Qty: 90 2RF methimazole 10 mg tablet 10 mg PO BID Qty: 60 2RF fludrocortisone 0.1 mg tablet 0.1 mg PO DAILY 30 Days Qty: 30 0RF cholecalciferol (vitamin D3) 25 mcg (1,000 unit) tablet 4,000 unit PO DAILY Patient Comments: TAKE FOUR TABLETS BY MOUTH EVERY DAY sodium chloride 1,000 mg Tablet,Soluble 1,000 mg PO BID 30 Days Qty: 60 0RF Referrals Follow up/Referrals: Padmini Wyatt APRN [Primary Care Provider, Medical] - See instructions Activity Restrictions/Add. Instructions Additional Instructions/Restrictions: You were evaluated in the emergency department today. At this time, your labs, x-ray, and CT scan are all reassuring. Take Tylenol and ibuprofen every 4-6 hours at home as needed for pain. I am also prescribing a medicine to take for stomach acid to see if this helps. Please follow-up closely with your primary care provider. Return to the emergency department for new or worsening symptoms. Clinical Impressions Clinical Impression: Chest pain Stand Alone Forms Stand Alone Forms: Work/School Release Instructions Patient Instructions: DI for Atypical Chest Pain Print Language Print Language: Thai Discharge ED Provider: Jyoti Ortiz [facility] General Chief Complaint: Chest Pain Stated Complaint: Chest Pain, arm numbness Time Seen by Provider: 02/04/25 08:21 Mode of Arrival: Ambulatory Source of Information: Patient Description of Symptoms (Recalled from ER Triage Doc. by RN): pt reports chest heaviness starting @0600 has a history or POTS,hyperthyroidism History of Present Illness HPI narrative: This patient is a 24-year-old female with a history of POTS, hypothyroidism, Gilbert's disease, anxiety presenting to the emergency department for evaluation with concern for chest pain. Patient states that chest pain on the left side woke her up around 6:00 this morning and has been waxing and waning since then. She states that it radiates around her left side and goes down her left arm. She also notes that she has nausea and a sensation that she needs to have a bowel movement but has not had any sort of bowel movements or diarrhea. She notes she is been having PVCs since Thursday much more frequently than normal, and she had seen her primary care provider for this and was told that her electrolytes and everything looked okay but that she is now swung into hypothyroid state so her methimazole was discontinued. She denies any other concerns or complaints, such as fevers, cough, vomiting, urinary symptoms, or changes in bowel movements. Related Data Home Medications ?Medication ?Instructions ?Recorded ?Confirmed cholecalciferol (vitamin D3) 25 4,000 unit PO DAILY 11/30/24 02/01/25 mcg (1,000 unit) tablet ondansetron 4 mg disintegrating 4 mg PO Q8HP PRN 01/04/25 02/01/25 tablet famotidine 20 mg tablet 20 mg PO DAILY 02/01/25 02/01/25 Previous Rx's ?Medication ?Instructions ?Recorded sodium chloride 1,000 mg soluble 1,000 mg PO BID 30 days #60 tabs 12/01/24 tablet buspirone 5 mg tablet 5 mg PO HS #30 tabs 12/05/24 propranolol 20 mg tablet 30 mg (1.5 x 20 mg) PO TID 30 days 12/06/24 #90 tabs methimazole 10 mg tablet 10 mg PO BID #60 tabs 01/05/25 Held on 02/02/25. Instructions: Home Medication placed on hold at Doctor's office fludrocortisone 0.1 mg tablet 0.1 mg PO DAILY 30 days #30 tabs 02/02/25 pantoprazole 40 mg tablet,delayed 40 mg PO DAILY #30 tabs 02/04/25 release Allergies Allergy/AdvReac Type Severity Reaction Status Date / Time cinnamon Allergy Severe Swelling Verified 02/01/25 13:32 of Lip/Tongue/Throat amoxicillin (From Augmentin) Allergy Verified 02/01/25 13:32 clavulanic acid (From Allergy Verified 02/01/25 13:32 Augmentin) Penicillins Allergy Verified 02/01/25 13:32 PFSH [facility] Disclaimer: The information contained in this section may have been updated after the patient was seen, as this information can be updated by other users. Medical History Syncope Gilbert's disease Anemia Chest pain Hot flashes Hyperthyroidism Orthostatic syncope Tachycardia Autonomic dysfunction Abnormal thyroid blood test Elevated cortisol level IUD check up Encounter for insertion of intrauterine contraceptive device (IUD) Encounter for gynecological examination (general) (routine) without abnormal findings Weakness Syncope Indirect hyperbilirubinemia Vomiting and diarrhea Second trimester Hypokalemia Tachycardia Syncope Hyperemesis affecting , antepartum Vomiting Heart palpitations Hypertension affecting Panic attack Syncope Near syncope Palpitations Sinus tachycardia Chest pain during Depression Anxiety Palpitations IUD (intrauterine device) in place Adrenal disorder POTS (postural orthostatic tachycardia syndrome) Anxiety disorder affecting , antepartum Norovirus Enteritis due to Norovirus Elevated brain natriuretic peptide (BNP) level of unknown anatomic location Diarrhea Herpes simplex of female genitalia Tobacco dependence syndrome Surgical History Hx of cholecystectomy H/O hand surgery Hx of dilation and curettage Hx of tonsillectomy Family History Other Family history of myocardial infarction Family history of stroke Social History Smoking Status: Never smoker smoking status stop date: 2023 second hand exposure: Yes alcohol intake: former substance use type: denies use current occupational status: unemployed Travel in the last 8 weeks?: None housing: house Have you lived/traveled outside US in past 30 days?: No Contact w/someone who lives/traveled outside US past 30 days?: No Exposure to someone with infectious disease in past 14 days?: No Do you have a fever (greater than 100.4 F or 38 C)?: No Have you tested positive for COVID-19?: No Exposed to someone with COVID-19 in past 14 days?: No Do you have a sore throat?: No Do you have a cough?: No Do you have any weakness?: No Do you have any diarrhea?: No Are you experiencing any unusual bleeding?: No Do you have any muscle aches/pain?: No Do you have any abdominal pain?: No Are you experiencing loss of taste or smell?: No Other Medical History Have you received the Flu Vaccine for this season: No Have you received the Pneumonia Vaccine: No ROS Obtained: Yes All systems reviewed & no additional complaints except as documented Physical Exam General General appearance: alert and in no apparent distress Head Head exam: atraumatic and normocephalic Eye Eye exam: Present normal appearance, PERRL and EOMI ENT ENT exam: Present normal exam, normal oropharynx, mucous membranes moist and normal external ear exam Neck Neck exam: Present normal inspection, full ROM and trachea midline; Absent tenderness Chest Chest inspection: Present normal inspection and symmetric chest wall rise; Absent tenderness Respiratory Respiratory exam: Present normal lung sounds bilaterally; Absent respiratory distress, wheezes, stridor or accessory muscle use Cardiovascular Cardiovascular exam: Present regular rate and normal rhythm Abdominal Exam Abdominal exam: Present soft; Absent distention, tenderness or guarding Extremities Exam Extremities exam: Present normal inspection, full ROM and normal capillary refill; Absent tenderness or edema Back Exam Back exam: Present normal inspection and full ROM; Absent tenderness Neurological Exam Neurological exam: Present alert, oriented X3, CN II-XII intact and normal gait; Absent motor sensory deficit Psychiatric Psychiatric exam: Present normal affect and normal mood Skin Skin exam: Present warm and dry HEART Score HEART Score HEART Score assessment performed?: Yes History (anamnesis): Slightly suspicious ECG: Normal Age: <45 years Risk factors: No known risk factors Troponin: </= normal limit HEART Score: 0 Critical Care Critical Care Time Critical Care Time: No Medical Decision Making Paresh Inquiry Pt receiving controlled substance: No Vital Signs Vital Signs: 02/04/25 08:16 02/04/25 08:17 02/04/25 08:30 Temperature 98.4 F Temperature Source Oral Pulse Rate 85 86 Pulse Rate [Right] 69 Respiratory Rate 20 15 Blood Pressure 161/98 H 148/100 H Blood Pressure [Right Arm] 161/98 H Blood Pressure Mean Blood Pressure Mean [Right Arm] 119 02 Sat by Pulse Oximetry 99 100 99 Oxygen Delivery Method Room Air 02/04/25 09:00 02/04/25 09:30 02/04/25 10:00 Temperature Temperature Source Pulse Rate 86 65 71 Pulse Rate [Right] Respiratory Rate 16 14 14 Blood Pressure 128/95 H 123/84 128/86 Blood Pressure [Right Arm] Blood Pressure Mean Blood Pressure Mean [Right Arm] 02 Sat by Pulse Oximetry 99 99 100 Oxygen Delivery Method Room Air Room Air Room Air 02/04/25 10:30 02/04/25 11:00 02/04/25 12:02 Temperature Temperature Source Pulse Rate 67 Pulse Rate [Right] Respiratory Rate 16 16 16 Blood Pressure 121/77 133/77 101/68 L Blood Pressure [Right Arm] Blood Pressure Mean 91 85 79 Blood Pressure Mean [Right Arm] 02 Sat by Pulse Oximetry 99 100 100 Oxygen Delivery Method 02/04/25 12:13 Temperature 98.1 F Temperature Source Pulse Rate 69 Pulse Rate [Right] Respiratory Rate 18 Blood Pressure 101/68 L Blood Pressure [Right Arm] Blood Pressure Mean Blood Pressure Mean [Right Arm] 02 Sat by Pulse Oximetry Oxygen Delivery Method Lab Data Labs: Lab Results 02/04/25 08:20: WBC 5.8, RBC 5.27, Hgb 13.8, Hct 43.0, MCV 81.6, MCH 26.2 L, MCHC 32.1, RDW 14.5, Plt Count 179, MPV 11.9 H, Neut % (Auto) 68.3, Lymph % (Auto) 26.8, [place] % (Auto) 3.3, Eos % (Auto) 0.7, Baso % (Auto) 0.9, Neut # (Auto) 4.0, Lymph # (Auto) 1.6, [place] # (Auto) 0.2, Eos # (Auto) 0.0, Baso # (Auto) 0.1, D-Dimer 0.57 H, Sodium 141, Potassium 4.4, Chloride 103, Carbon Dioxide 22, Anion Gap 20.4 H, BUN 15, Creatinine 0.80, Estimated Creat Clear 118, Estimated GFR 87, Est GFR ( Amer) 105, Glucose 95, Calcium 10.0, Magnesium 1.8, Total Bilirubin 1.2, AST 27 D, ALT 15, Alkaline Phosphatase 55, Troponin I < 0.01, Total Protein 9.2 H, Albumin 5.3 H, Globulin 3.9 H, Albumin/Globulin Ratio 1.4, Lipase 178, TSH 15.40 H D, Thyroxine (T4) 7.5, Serum HCG, Qual Negative 02/04/25 09:54: Urine Color Red, Urine Appearance Sl cloudy, Urine pH 6.5, Ur Specific [place] 1.010, Urine Protein 2+ A, Urine Glucose (UA) Negative, Urine Ketones Negative, Urine Blood 3+ A, Urine Nitrate Negative, Urine Bilirubin Negative, Urine Urobilinogen 0.2, Ur Leukocyte Esterase Trace, Urine RBC 50-100, Urine WBC Occasional, Ur Squamous Epith Cells Occasional, Urine Bacteria Trace 02/04/25 11:25: Troponin I < 0.01 02/04/25 08:20 02/04/25 08:20 Response Orders (Tests/Meds): ED MEDICATIONS Discontinued Medications Generic Name Dose Route Start Last Admin Trade Name Freq PRN Reason Stop Dose Admin Acetaminophen 1,000 mg 02/04/25 08:33 02/04/25 08:59 Acetaminophen 500mg Tab PO 02/04/25 08:34 1,000 mg ONCE ONE Administration Diazepam 2 mg 02/04/25 10:36 02/04/25 10:39 Diazepam 10mg/2ml Syringe IV 02/04/25 10:37 2 mg ONCE ONE Administration Lactated Ringer's 1,000 mls @ 999 mls/hr 02/04/25 08:33 02/04/25 08:58 Lactated Ringer's 1000 Ml Bag IV 02/04/25 09:33 999 mls/hr .Q1H1M ONE Administration Iopamidol 70 ml 02/04/25 10:58 02/04/25 10:59 Iopamidol-370 (76%);100ml Bottle IV 02/04/25 10:59 70 ml ONCE ONE Administration Ketorolac Tromethamine 15 mg 02/04/25 08:33 02/04/25 09:00 Ketorolac 30mg/Ml Vial IV 02/04/25 08:34 Not Given ONCE ONE Ondansetron HCl 4 mg 02/04/25 08:33 02/04/25 08:58 Ondansetron 4mg/2ml Vial IV 02/04/25 08:34 4 mg ONCE ONE Administration Sodium Chloride 10 ml 02/04/25 10:27 Sodium Chloride 0.9% 10ml Vial IV 03/06/25 10:26 NEEDED PRN to Dilute Lorazepam inj Sodium Chloride 50 ml 02/04/25 10:58 02/04/25 10:59 0.9 % Sodium Chloride 50 Ml Vial IV 02/04/25 10:59 50 ml ONCE ONE Administration Sodium Chloride 10 ml 02/04/25 10:58 02/04/25 10:59 Sodium Chloride 0.9% 10ml Syr (Rad Only) IV 02/04/25 10:59 10 ml ONCE ONE Administration ORDERS Category Date Time Status CTA Chest [CT angio chest PE protocol] Stat Cat Scan 02/04/25 10:27 Completed CXR 2 view (NOT portable) [XR chest 2V] Stat Exams 02/04/25 08:22 Completed Complete Blood Count Auto Diff Stat Lab 02/04/25 08:20 Completed Comprehensive Metabolic Panel Stat Lab 02/04/25 08:20 Completed D-Dimer Stat Lab 02/04/25 08:20 Completed Lipase Stat Lab 02/04/25 08:20 Completed MAG [Magnesium] Stat Lab 02/04/25 08:20 Completed Serum [HCG Qualitative, Serum] Stat Lab 02/04/25 08:20 Completed T4 (Thyroxine) Stat Lab 02/04/25 08:20 Completed TSH [Thyroid Stimulating Hormone] Stat Lab 02/04/25 08:20 Completed Trop I [Troponin I] Stat Lab 02/04/25 08:20 Completed Troponin I Q3H Lab 02/04/25 11:25 Completed UA [Urinalysis and Microscopic] Stat Lab 02/04/25 09:54 Completed ECG Data Tracing #1: Attestation: I reviewed this ECG and interpreted as documented below: ECG Narrative: Normal sinus rhythm with a ventricular rate of [address] changes concerning for ischemia. Normal intervals. No significant interval change from prior EKG ECG initial impression date: 02/04/25 ECG initial impression time: 08:20 MDM Narrative Medical Decision Narrative: In summary, this patient is a 24-year-old female presenting to the Emergency Department for evaluation of left-sided chest pain going down her left arm as well as nausea. Differential diagnoses considered include but are not limited to ACS, dysrhythmia, GERD, PE, pleurisy, pneumonia, gas pain, gastroenteritis, colitis, peptic ulcer disease. Ruling out the most morbid conditions drove assessment. It should be noted patient's history includes POTS, palpitations, thyroiditis, Gilbert's disease, anxiety which may or may not be at goal therapy. This complicates all aspects of care by increasing patient's risk for morbidity. I reviewed patient's past medical records and noted for prior evaluations by primary care, ED, and OB for maintenance of health and for management of symptoms in the setting of conditions above. On exam, the patient is sitting upright in no acute distress. She is hypertensive on assessment with systolics in the 160s, but otherwise vitals are normal with no significant tachycardia, tachypnea, or hypoxia. Cardiopulmonary exam is normal and abdominal exam is benign. Workup included CBC, CMP, TSH, T4, troponin, magnesium, D-dimer, chest x-ray, EKG. Patient was given a bolus of IV fluids as well as IV Toradol and oral Tylenol for symptomatic improvement. I independently interpreted chest x-ray prior to the radiologist read and noted no acute focal consolidation or pneumothorax. Please see their read for final interpretation. Labs were obtained that demonstrated reassuring CBC with no significant leukocytosis or anemia, reassuring chemistry with exception of mildly elevated anion gap which is nonspecific. Troponin negative. D-dimer was very mildly elevated and patient continued to complain of symptoms, so elected to obtain CTA PE protocol. She states that she gets very bad reaction to contrast with feeling like her heart is racing and getting really hot. Given this, I pretreated her with IV Valium, which she was agreeable to.. TSH is slightly elevated with normal T4, and her PCP is working on adjusting her thyroid medications outpatient. On reassessment, patient had great improvement after administration of interventions above after administration of Valium. She no longer has chest pain and vitals are normal on cardiac telemetry. Overall, troponins x 2 are negative, CTA PE protocol is not concerning for any PE or other acute pathology, and workup otherwise is reassuring.. Overall at this time, heart score 0 and workup is been reassuring. Symptoms have resolved and I feel the patient is appropriate for discharge home with diagnosis of atypical chest pain. Strict return precautions given as well as instructions for close PCP follow-up.
[2025-02-04 08:40] LABS: Alanine Aminotransferase 15 U/L (12-78); Albumin Level 5.3 g/dl (3.5-5.0); Albumin/Globulin Ratio 1.4 (1.1-1.8); Alkaline Phosphatase 55 U/L (38-126); Anion Gap 20.4 mEq/L (5-15); Aspartate Amino Transferase 27 U/L (14-36); Bilirubin,Total 1.2 mg/dl (0.2-1.3); Blood Urea Nitrogen 15 mg/dl (7-17); Calcium 10.0 mg/dl (8.4-10.2); Carbon Dioxide 22 mmol/L (22.0-30.0); Chloride 103 mmol/L (98-107); Creatinine Clearance Estimated 118 mL/min (50-200); Creatinine,Serum 0.80 mg/dl (0.52-1.04); Estimated Glomerular Filt Rate 87 ml/min (>60); GFR (African American) 105 ML/MIN (>60); Globulin 3.9 g/dL (1.3-3.2); Glucose 95 mg/dl (74-100); Potassium 4.4 mmoL/L (3.5-5.1); Sodium 141 mmol/L (136-145); Total Protein,Serum 9.2 g/dl (6.3-8.2)
[2025-02-04 08:57] LABS: T4 (Thyroxine) 7.5 ug/dl (5.53-11.0)
[2025-02-04] MEDS: LACTATED RINGERS 1000ML 1,000 ML 999 ML IV (08:58)
[2025-02-04] MEDS: ONDANSETRON 4MG/2ML VIAL 4 MG IV (08:58)
[2025-02-04 08:59] LABS: Troponin I < 0.01 ng/ml (0.00-0.034)
[2025-02-04] MEDS: ACETAMINOPHEN 500MG TAB 1000 MG PO (08:59)
[2025-02-04 09:03] LABS: HCG Qualitative, Serum Negative (Negative)
[2025-02-04 09:06] LABS: Lipase 178 U/L (23-300); Magnesium 1.8 mg/dl (1.6-2.3)
[2025-02-04 09:07] LABS: D-Dimer 0.57 ug/mL (0.0-0.5)
[2025-02-04 09:11] LABS: Thyroid Stimulating Hormone 15.40 uIU/mL (0.465-4.68)
--- NOTE | 2025-02-04 09:15 | PC.NURSE ---
pt going for xray at this time via wheelchair with ophthalmic medical technologist
--- NOTE | 2025-02-04 09:22 | PC.NURSE ---
pt back from CT at this time
[2025-02-04 10:00] LABS: Microscopic, Urine URINE MICROSCOPIC (MICROSCOPIC)
[2025-02-04 10:05] LABS: Bilirubin,Urine Negative (Negative); Color,Urine RED (Yellow); Glucose,Urine (UA) Negative (Negative); Ketones,Urine Negative (Negative); Leukocyte Esterase,Urine TRACE (Negative); PH,Urine 6.5 (5.0-8.5); Protein,Urine 2+ (Negative); Specific Gravity, Urine 1.010 (1.005-1.030); Urobilinogen,Urine 0.2 EU/dl (0.2)
[2025-02-04 10:13] LABS: Bacteria,Urine Trace /lpf; RBC,Urine 50-100 #/hpf (0-3); Squamous Epithelial Cell,Urine Occasional #/hpf (0-5); WBC,Urine Occasional #/hpf (0-3)
--- NOTE | 2025-02-04 10:27 | CT_ITS ---
PROCEDURE INFORMATION: Exam: CTA Chest With Contrast Exam date and time: 02/04/2025 10:55 AM Age: 24 years old Clinical indication: Pain; Chest pressure; Additional info: L chest pain, elevated dimer TECHNIQUE: Imaging protocol: Computed tomographic angiography of the chest with contrast. Exam focused on the arteries. 3D rendering (Not supervised by radiologist): MIP and/or 3D reconstructed images were created by the technologist. Radiation optimization: All CT scans at this facility use at least one of these dose optimization techniques: automated exposure control; mA and/or kV adjustment per patient size (includes targeted exams where dose is matched to clinical indication); or iterative reconstruction. Contrast material: ISO; Contrast volume: 70 ml; Contrast route: INTRAVENOUS (IV); COMPARISON: CT ANGIO CHEST 12/07/2023 12:02 AM FINDINGS: Pulmonary arteries: No evidence of pulmonary embolus to the segmental level. Aorta: No aneurysm of the aorta. No dissection of the aorta. Lungs: Unremarkable. No consolidation. No masses. Pleural spaces: Unremarkable. No pneumothorax. No pleural effusion. Heart: Unremarkable. No cardiomegaly. No pericardial effusion. Lymph nodes: Unremarkable. No enlarged lymph nodes. Bones/joints: Unremarkable. No acute fracture. Soft tissues: Unremarkable. IMPRESSION: 1. No evidence of pulmonary embolus to the segmental level. 2. No aneurysm of the aorta. 3. No dissection of the aorta.
[2025-02-04] MEDS: diazePAM 10MG/2ML SYRINGE 2 MG IV (10:39)
[2025-02-04] MEDS: 0.9 % SODIUM CHLORIDE 50 ML VIAL IV (10:59)
[2025-02-04] MEDS: SODIUM CHLORIDE 0.9% 10ML SYR (RAD ONLY) 10 ML IV (10:59)
[2025-02-04] MEDS: IOPAMIDOL-370 (76%);100ML BOTTLE 70 ML IV (10:59)
[2025-02-04 11:58] LABS: Troponin I < 0.01 ng/ml (0.00-0.034)
== END 2025-02-04 12:18 | disposition home or self-care (01) ==
PROVIDERS: Emergency Provider Emergency Medicine; PCP Nurse Practitioner Family
DX: R07.9 Chest pain, unspecified (principal); R03.0 Elevated blood-pressure reading, without diagnosis of hypertension; G90.A Postural orthostatic tachycardia syndrome [POTS]; E80.4 Gilbert syndrome; E06.3 Autoimmune thyroiditis
CPT/HCPCS: 71046; 71275; 80053; 81001; 83690; 83735; 84436; 84443; 84484; 84703; 85025; 85378; 93005; 96361; 96374; 96375; 99285; J1885; J2405; J3360; J7120; Q9967

== ENCOUNTER 2025-02-08 08:15 | Outpatient (CLI) | payer MEDICAID, SELFPAY ==
--- OUTSIDE RECORDS SUMMARY | 2024-12-15 14:30 | XMS_ITS | Encounter Summary ---
Author Organization [facility] Address [address] [place] [address] Care Team Providers Care Networking Technician Name Role Phone Angela Oleary RN Unavailable Unavailable Rey Wyatt MD Primary Care Provider [phone] Reason for Referral * Consultation (Routine) - Authorized Specialty Diagnoses / Procedures Referred By Mili joe Referred To Contact Diagnoses Abdominal pain, epigastric Diarrhea, unspecified type Postural orthostatic tachycardia syndrome (POTS) Hematochezia Silverio Tam PA [id number] [place] [address] Phone: tel: fax: Referral ID Status Reason Start Date Expiration Date V isits Requested Visits Authorized [id number] Authorized 12/15/2024 06/16/2026 1 1 Reason for Visit * Reason Comments Hematochezia Encounter Details Date Type Department Care Team (Late st Contact Info) Description 12/15/2024 2:30 PM EDT [facility] [address] [place] [address] [facility] [address] [facility] [address] [place] [address] Weight loss (Primary Dx); Abdominal pain, epigastric; Diarrhea, unspecified type; Postural orthostatic tachycardia syndrome (POTS); Hematochezia; Elevated fecal calprotectin; Urticaria; History of anesthesia reaction; Gastroesophageal reflux disease, unspecified whether esophagitis present; Gilbert's syndrome; Nausea and vomiting, unspecified vomiting type; BMI 23.0-23.9, adult Social History Tobacco Use Types Packs/Day Years [...] week 02/22/2024 How often do you attend [facility] or worship services? Never 02/22/2024 Do you belong to any clubs o r organizations such as taoism groups, unions, fraternal or athletic groups, or [...] Recorded Patient Health Questionnaire-2 Score 0 12/15/2024 [facility] - Occupational Stress Questionnaire Answer Date [...] place to sleep or slept in a jail (including now)? 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 0 07/16/2024 CAGE Questionnaire Score 0 024 Utilities Answer Date Recorded In the past 12 months has th e [employer], gas, oil, or water company threatened to shut off services in your home? No 02/09/2024 Comments No Sex and Gender Information Value Date Recorded Sex Assigned at Not on file Legal Sex Female 7:36 PM EDT Gender Identity Not on file Sexual Orientation Not on file documented as of this encounter Last Filed Vital Signs Vital Sign Reading Time Taken Comments Blood Pressure 104/72 12/15/2024 2:20 PM EDT Pulse 75 12/15/2024 2:20 PM EDT Temperature 36.6 C (97.8 F) 12/15/2024 2:20 PM EDT Respiratory Rate - - Oxygen Saturation 98% 12/15/2024 2:20 PM EDT Inhaled Oxygen Concentration - - Weight 63.4 kg (139 lb 12.4 oz) 12/15/2024 2:20 PM EDT Height 165.1 cm (5' 5 ) 12/15/2024 2:20 PM EDT Body Mass Index 23.26 12/15/2024 2:20 PM EDT documented in this encounter Functional Status * Over the past 2 weeks, how often have you been bothered by any of the following problems? Question Answer Date of Assessment Author Little interest or pleasure in doing things Not at all 12/15/2024 2:22 PM EDT Kingsley Alvarado Feeling down, depressed, or hopeless Not at all 12/15/2024 2:22 PM EDT Kingsley Alvarado Patient Health Questionnaire -2 Score 0 12/15/2024 2:22 PM EDT Kingsley Alvarado * Question Answer Date of Assessment Author Trouble falling or staying asleep, or sleeping too much Not at all 12/15/2024 2:22 PM EDT Kingsley Alvarado Feeling tired or having kentrell le energy Several days 12/15/2024 2:22 PM EDT Kingsley Alvarado Poor appetite or overeating Several days 12/15/2024 2: 22 PM EDT Kingsley Alvarado Feeling bad about yourself - or that you are a failure or have let yourself or your family down Not at all 12/15/2024 2:22 PM EDT Kingsley Alvarado Trouble concentrating on things, such as reading the newspaper or watching television Not at all 12/15/2024 2:22 PM EDT Kingsley Alvarado Moving or speaking so slowly that other people could have noticed? Or the opposite - being so fidgety or restless that you have been moving around a lot more than usual. Not at all 12/15/2024 2:22 PM EDT Kingsley Alvarado Thoughts that you would be better off or hurting yourself in some way Not at all 12/15/2024 2:22 PM EDT Robert Alvarado Patient Health Questionnaire -9 Score 2 12/15/2024 2:22 PM EDT Kingsley Alvarado * If you checked off any problems on this questionnaire so far, Question Answer Date of Assessment Author How difficult have these problems made it for you to do your work, take care of things at home, or get along with other people? Not difficult at all 12/15/2024 2:22 PM EDT Robert Alvarado documented as of this encounter Miscellaneous Notes * Progress Notes - Silverio Tam PA - 12/15/2024 2:30 PM EDT General Hepatology Note Subjective Patient ID: Francy Delarosa is a 24 y.o. female. The following portions of the chart were reviewed this encounter and updated as appropriate: Tobacco Allergies Meds Problems Med Hx Surg Hx Fam Hx Chief Complaint Patient presents with Hematochezia History of Presenting Illness Ms. Francy Delarosa [...] last seen in clinic for consultation in July 2024. She remains in a wheel chair today, and states her ambulation has been poor recently. 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 The patient states she was concerned she was going to . She had upper GI symptoms with bad cramping and her bowel movements were diarrhea. She had blood inher stool at that time, but that has resolved. She was She was supposed to have an EGD/Colonoscopy,but due to her thyroid storm she is unable to have anesthesia. She had a capsule endoscopy completed instead. Her patency capsule was completed; but there I no record of her Xray. She is now on methimazole for her thyroid disease. She is supposed also be seeing [facility] for her POTs; but may also be referred to the dysautonomia clinic at for her POTS. Both have verylong waitlist. She states her weight is returning to her baseline now. She was 142 pounds at admission, and reduced to 132 pounds one week later. Patient denies dysphagia or chest pain. No [...] Medical History Past Medical History: Diagnosis Date Abnormal ECG Anemia Anxiety Eczema Food intolerance GERD (gastroesophageal reflux disease) Gilbert syndrome 2019 Hypertension Hyperthyroidism auto immune Liver disease Peptic ulceration POTS (postural orthostatic tachycardia syndrome) 01/2024 Syncope Urinary tract infection Surgical History Past Surgical History: Procedure Laterality Date CHOLECYSTECTOMY 07/2023 DILATION AND CURETTAGE OF UTERUS HAND SURGERY 07/2022 TONSILLECTOMY 2002 Family History Family History Problem Relation Name Age of Onset Autoimmune disease Mother Avril fagan Depression Mother Avril fagan 10 - 19 Clotting disorder Mother Avril fagan Immunodeficiency Mother Avril fagan Thyroid disease Mother Avril fagan Abnormal EKG Mother Avril fagan Heart failure Father Sahil reynoso Hypertension Father Sahil reynoso Stroke Father Sahil reynoso 40 - 49 Heart attack Father Sahil reynoso Autoimmune disease Brother Tristan fagan Crohn's disease Brother Tristan fagan 20 - 29 Immunodeficiency Brother Tristan fagan Cancer Maternal Grandmother Melania sheridan Asthma Child Thyroid disease Mother's Sister Ashanti 20 - 29 Liver disease Brother Scott 20 - 29 Anesthesia problems Neg Hx Malig Hyperthermia Neg Hx Social History Social History Socioeconomic History Marital status: Spouse name: Scar Ramirez Number of children: 2 Years of education: Not on file Highest education level: Not on file Occupational History Not on file Tobacco Use Smoking status: Former Current packs/day: 0.00 Types: Cigarettes Quit date: 2021 Years since quittin.4 Smokeless tobacco: Former Tobacco comments: History of vaping after cigarettes. Stopped when she found out she was Vaping Use Vaping status: Never Used Substance and Sexual Activity Alcohol use: Never Drug use: Never Sexual activity: Yes Partners: Male control/protection: None, I.U.D. Comment: Im Other Topics Concern Not on [...] min Stress: No Stress Concern Present (02/22/2024) [place] Citizen [place] [facility] - Occupational Stress Questionnaire Feeling of Stress : Not at all Social Connections: Moderately Isolated (02/22/2024) Social Connection and Isolation Panel [NHANES] Frequency of Communication with Friends and Family: More than three times a week Frequency of Social Gatherings with Friends and Family: Once a week Attends Faith Services: Never Active Member of Clubs or [...] Outpatient Medications Current Outpatient Medications Medication Instructions bisacodyl (Bisacodyl EC) 5 MG EC tablet Take all 4 tablets at 4 PM on day before colonoscopy Blood Glucose Monitoring Suppl (AmberAds Verio Reflect) w/Device kit busPIRone (BUSPAR) 5 mg, Oral, Nightly, Takes at 8PM cefdinir (Omnicef) 300 MG capsule take one capsule by mouth every twelve hours for 10 days cholecalciferol (Vitamin D-3) 50 MCG (1999 UT) capsule famotidine (PEPCID) 20 mg, Oral, 2 times daily fludrocortisone (FLORINEF) 0.1 mg, Oral, Daily fluticasone (Flonase) 50 MCG/ACT nasal spray 1 spray, Daily ibuprofen 600 mg, Oral, Every 6 hours PRN Lancets (Inkd.comTouch Delica Plus [id number]) misc methIMAzole (TAPAZOLE) 10 mg, Oral, Daily ondansetron (ZOFRAN) 4 mg, Oral, Every 8 hours PRN ondansetron ODT (ZOFRAN-ODT) 4 mg, Oral, Every 8 hours PRN Inkd.comTouch Verio test strip 1 each, As needed polyethylene glycol (GoLYTELY) 236 g solution SEE PHARMACY NOTES FOR PATIENT LABEL INSTRUCTIONS- for Colonoscopy prep protocol potassium & sodium phosphates (Phos-NaK) 280-160-250 MG packet 1 packet, Oral, Daily predniSONE (Deltasone) 10 MG tablet Take 4 tablets by mouth daily for 5 days, THEN 3 tablets daily for 5 days, THEN 2 tablets daily for 5 days, THEN 1 tablet daily for 5 days, THEN 0.5 tablets daily for 5 days. Vit-Fe Fumarate-FA ( Vitamins) 28-0.8 MG tablet 1 tablet, Oral, Daily propranolol (INDERAL) 20 mg, Oral, 3 times daily senna-docusate (Codi-Colace) 8.6-50 MG tablet 1 tablet, Oral, Daily sodium chloride ([place] Nasal [place]) 0.65 % nasal spray 1 spray, Each Nostril, As needed Tylenol 650 mg, Oral, Every 6 hours PRN Ventolin HFA 108 (90 Base) MCG/ACT inhaler Allergies Allergies Allergen Reactions Amoxicillin-Pot Clavulanate Other - please document in the comment field, Rash and Swelling Cinnamon Other - please document in the comment field Penicillin G Swelling Betamethasone Dipropionate (Augmented) [Betamethasone] Other - please document in the comment field Patient states she has not had a reaction to this. Penicillins Other - please document in the comment field Vaccinations Immunization History Administered Date(s) Administered DTaP, Unspecified 04/26/2002 HPV, Quadrivalent 05/29/2011 Hep A, ped/adol, 2 dose 02/20/2010, 11/21/2010 IPV 04/26/2002 Influenza, injectable, quadrivalent, preservative free 04/29/2023 [employer]Jet COVID-19 Vaccine (Blue Cap) 18+ 02/21/2021 MMR 04/26/2002 Tdap 02/20/2010 Varicella 07/06/2001 Vital Signs Visit Vitals BP 104/72 Pulse 75 Temp 36.6 ??C (97.8 ??F) Ht 1.651 m (5' 5 ) Wt 63.4 kg (139 lb 12.4 oz) SpO2 98% BMI 23.26 kg/m?? OB Status Having periods Smoking Status Former BSA 1.71 m?? Physical Exam General - well nourished [...] - pleasant, calm, cooperative. Labs MELD 3.0: 7 at 12/15/2024 3:29 PM MELD-Na: 6 at 12/15/2024 3:29 PM Calculated from: Serum Creatinine: 0.6 mg/dL (Using min of 1 mg/dL) at 12/15/2024 3:29 PM Serum Sodium: 140 mmol/L (Using max of 137 mmol/L) at 12/15/2024 3:29 PM Total Bilirubin: 0.7 mg/dL (Using min of 1 mg/dL) at 12/15/2024 3:29 PM Serum Albumin: 4.6 g/dL (Using max of 3.5 g/dL) at 12/15/2024 3:29 PM INR(ratio): 1 at 12/15/2024 3:29 PM Age at listing (hypothetical): 24 years Sex: Female at 12/15/2024 3:29 PM AFP No results found for: AFP HgB Lab Results Component Value Date/Time HGB 12.6 12/15/2024 1529 HGB 11.8 11/20/20247 WBC Lab Results Component Value Date/Time WBC 5.38 12/15/2024 1529 WBC 4.69 11/20/20247 PLT Lab Results Component Value Date/Time PLT 311 12/15/2024 1529 PLT 197 11/20/20247 A1c No results found for: HGBA1C Lab Results Component Value Date/Time AST 16 12/15/2024 1529 ALT 23 12/15/2024 1529 ALKPHOS 58 12/15/2024 1529 BILITOT 0.7 12/15/2024 1529 INR 1.0 12/15/2024 1529 PLT 311 12/15/2024 1529 ALBUMIN 4.6 12/15/2024 1529 HEPBSAG Negative 04/18/2024 1013 HECG Negative 02/07/2024 2211 FERRITIN 101 03/21/2024 1311 CREATININE 0.60 12/15/2024 1529 HGB 12.6 12/15/2024 1529 TSH <0.01 (L) 12/15/2024 1529 Assessment and Plan Problem List Items Addressed This Visit Postural orthostatic tachycardia syndrome (POTS) Relevant Orders Follow Up GI Diarrhea Relevant Orders Brayan-Henson virus VCA, IgM (Completed) Brayan Henson IgG Ab (Completed) Prothrombin Time/INR (Completed) Comprehensive Metabolic Panel, Plasma (Completed) CBC and Differential (Completed) T3 (Completed) Cytomegalovirus (CMV) Quantitative PCR (Completed) Follow Up GI Gastroesophageal reflux disease Gilbert's syndrome Hematochezia Relevant Orders Follow Up GI Other Visit Diagnoses Weight loss - Primary Relevant Orders Brayan-Henson virus VCA, IgM (Completed) Brayan Henson IgG Ab (Completed) Prothrombin Time/INR (Completed) Comprehensive Metabolic Panel, Plasma (Completed) CBC and Differential (Completed) T3 (Completed) Cytomegalovirus (CMV) Quantitative PCR (Completed) Abdominal pain, epigastric Relevant Orders Brayan-Henson virus VCA, IgM (Completed) Brayan Henson IgG Ab (Completed) Prothrombin Time/INR (Completed) Comprehensive Metabolic Panel, Plasma (Completed) CBC and Differential (Completed) T3 (Completed) Cytomegalovirus (CMV) Quantitative PCR (Completed) Follow Up GI Elevated fecal calprotectin Urticaria History of anesthesia reaction Nausea and vomiting, unspecified vomiting type BMI 23.0-23.9, adult #Episodic Hematochezia - Patient reports life-long alternating bowel habits with worsening episodes during ; has now returned to primarily constipation following completion. She is about 4-5 months post now. - Ongoing episodes of hematochezia. Is unsure of presence of hemorrhoids; has declined rectal exams. - Fecal Calprotectin 03/2024: 87 - Continue miralax for bowel habits - Unable to complete colonoscopy due to anesthesia (in the setting of recent thyroid storm) - Capsule endoscopy pending; patency capsule result not confirmed. #GERD #Nausea #Abdominal pain #History of Peptic Ulceration - Patient reports extensive reflux and nausea. Previous vomiting has improved following completion. - Appetite is healthy; but has limited dietary intake at times given symptoms. - Reports only few food options that don't contribute to abdominal pain, GERD, nausea or early satiety. - Previous trials of PPI worsened symptoms per patient report. - Food allergy testing negative per immunology - H Pylori stool study negative - Unable to complete EGD due to anesthesia (in the setting of recent thyroid storm) - Capsule endoscopy pending; patency capsule result no confirmed. #Elevated T-biliruin #Gilbert's Syndrome #S/p cholecystectomy - Patient has elevated total bilirubin in the setting of previously diagnosed Gilbert's disease. - Tbili is currently WNL. - No jaundice or icterus reported or visible on exam today. - US Liver screen is pending - Continue to monitor. #POTS #Pre-Syncope #Urticaria - Patient reports ongoing episodes of pre-syncope and dizziness secondary to POTS; monitored with Cardiology - Concerns of MCAST in the setting of urticaria secondary to water exposures in showers, and activity. This started within the last 6-12 months. Tryptase negative. - Reports shortness of air and 'anaphylactic-like' [...] to rule in/out consideration of MCAST. - Colonoscopy and EGD pending - anesthesiology pre-clearance requested #Healthcare Maintenance Immunity to Hepatitis A- NA Immunity to Hepatitis B- No immunity HBsAg - Negative EGD- NA Colonoscopy - NA RTC 4 Months documented in this encounter Plan of Treatment Upcoming Encounters Date Type Department Care Team (Late st Contact Info) Description 02/16/2025 1:20 PM EDT Office Visit [facility] [place] [address], [address] [place] [address] Courtney Torres MD [address] [place] [address] 03/15/2025 3:30 PM EDT Consult [facility] [address] [place] [address] Kendy Sanchez APRN [address] [place] [address] 04/17/2025 2:00 PM EDT Office Visit [facility] [address] [place] [address] Silverio Tam PA [address] [place] [address] Scheduled Referrals Name Type Priority Associated Diagnoses Orde r Schedule Follow Up GI Outpatient Referral Routine Abdominal pain, epigastric Diarrhea, unspecified type Postural orthostatic tachycardia syndrome (POTS) Hematochezia Expected: 04/17/2025, Expires: 01/15/2026 documented as of this encounter Goals Goal Patient Goal Type Associated Problems Recent Progress Patient-Stated? Author Delayed Delivery Care Plan CPM S22 PP LABOR (OBSTETRICS) No Open Scheduling, Background documented as of this encounter Results * Cytomegalovirus (CMV) Quantitative PCR (12/15/2024 3:29 PM EDT) [facility] Cytomegalovirus (CMV) Quantitative Interpretation Not Detected Not Detected 12/19/2024 2:26 PM EDT [facility] Blood Venous blood specimen / Unknown Venipuncture / Unknown 12/15/2024 3:29 PM EDT 12/15/2024 3:30 PM EDT Narrative [facility] - 12/19/2024 2:26 PM EDT The Verma M2000 CMV test is a Real Time in vitro nucleic acid amplification test for the quantitation of Cytomegalovirus (CMV) DNA in human plasma in CMV infected individuals. It is intended to quantify CMV in patients who are infected with this virus. The dynamic range for this test is log10 = 1.70 to 8.19 and/or 50 to 156,000,000 IU/mL. The limit of detection (LOD) for this assay is 31.20 IU/mL and the limit of quantitation (LOQ) is 50 IU/mL. This assay is FDA approved for clinical use. us [facility] BLOOD ORDERABLES Final Res ult [facility] [address] [place] [address] * T3 (12/15/2024 3:29 PM EDT) Pathologist [facility] T3, Serum 177 87 - 187 ng/dL 12/15/2024 4:54 PM EDT [facility] Blood Venous blood specimen / Unknown Venipuncture / Unknown 12/15/2024 3:29 PM EDT 12/15/2024 3:30 PM EDT us [facility]io [facility] BLOOD ORDERABLES Final Res ult [facility] [address] [place] [address] * (ABNORMAL) CBC and Differential (12/15/2024 3:29 PM EDT) WBC Count 5.38 3.70 - 10.30 10*3/uL LAB HEMATOLOGY METHOD 12/15/2024 4:38 PM EDT [facility] RBC Count 4.81 3.90 - 5.20 10*6/uL LAB HEMATOLOGY METHOD 12/15/2024 4:38 PM EDT [facility] HGB 12.6 11.2 - 15.7 g/dL LAB HEMATOLOGY METHOD 12/15/2024 4:38 PM EDT [facility] HCT 39.7 34.0 - 45.0 % LAB HEMATOLOGY METHOD 12/15/2024 4:38 PM EDT [facility] Platelet Count 311 155 - 369 10*3/uL LAB HEMATOLOGY METHOD 12/15/2024 4:38 PM EDT [facility] MCV 83 79 - 98 fL LAB HEMATOLOGY METHOD 12/15/2024 4:38 PM EDT [facility] MCH 26.2 26.0 - 32.0 pg LAB HEMATOLOGY METHOD 12/15/2024 4:38 PM EDT [facility] MCHC 31.7 30.7 - 35.5 g/dL LAB HEMATOLOGY METHOD 12/15/2024 4:38 PM EDT [facility] RDW 12.2 11.5 - 14.5 % LAB HEMATOLOGY METHOD 12/15/2024 4:38 PM EDT [facility] MPV 11.2 8.8 - 12.5 fL LAB HEMATOLOGY METHOD 12/15/2024 4:38 PM EDT [facility] nRBC 0.0 <=0.0 per 100 WBCs LAB HEMATOLOGY METHOD 12/15/2024 4:38 PM EDT [facility] Differential Type Automated LAB HEMATOLOGY METHOD 12/15/2024 4:38 PM EDT [facility] Neutrophils % 61 % LAB HEMATOLOGY METHOD 12/15/2024 4:38 PM EDT [facility] Lymphocytes % 32 % LAB HEMATOLOGY METHOD 12/15/2024 4:38 PM EDT [facility] Monocytes % 5 % LAB HEMATOLOGY METHOD 12/15/2024 4:38 PM EDT [facility] Eosinophils % 1 % LAB HEMATOLOGY METHOD 12/15/2024 4:38 PM EDT [facility] Basophils % 1 % LAB HEMATOLOGY METHOD 12/15/2024 4:38 PM EDT [facility] Immature Granulocytes % 0 % LAB HEMATOLOGY METHOD 12/15/2024 4:38 PM EDT [facility] Neutrophils Absolute 3.33 1.60 - 6.10 10*3/uL LAB HEMATOLOGY METHOD 12/15/2024 4:38 PM EDT [facility] Lymphocytes Absolute 1.70 1.20 - 3.90 10*3/uL LAB HEMATOLOGY METHOD 12/15/2024 4:38 PM EDT [facility] Monocytes Absolute 0.25(L) 0.30 - 0.90 10*3/uL LAB HEMATOLOGY METHOD 12/15/2024 4:38 PM EDT [facility] Eosinophils Absolute 0.03 0.00 - 0.50 10*3/uL LAB HEMATOLOGY METHOD 12/15/2024 4:38 PM EDT [facility] Basophils Absolute 0.05 0.00 - 0.10 10*3/uL LAB HEMATOLOGY METHOD 12/15/2024 4:38 PM EDT [facility] Immature Granulocytes Absolute 0.02 0.00 - 0.06 10*3/uL LAB HEMATOLOGY METHOD 12/15/2024 4:38 PM EDT [facility] Blood Venous blood specimen / Unknown Venipuncture / Unknown 12/15/2024 3:29 PM EDT 12/15/2024 3:30 PM EDT [facility] - 12/15/2024 4:38 PM EDT Therapeutic decision making should be based on absolute values, rather than percentages. us Silverio [facility] BLOOD ORDERABLES Final Res ult [facility] [address] [place] [address] * (ABNORMAL) Comprehensive Metabolic Panel, Plasma (12/15/2024 3:29 PM EDT) Glucose, Plasma 84 74 - 99 mg/dL 12/15/2024 4:54 PM EDT [facility] BUN, Plasma 8 7 - 21 mg/dL 12/15/2024 4:54 PM EDT [facility] Creatinine, Plasma 0.60 0.60 - 1.10 mg/dL 12/15/2024 4:54 PM EDT [facility] BUN/Creatinine Ratio 13 12/15/2024 4:54 PM EDT [facility] Sodium, Plasma 140 136 - 145 mmol/L 12/15/2024 4:54 PM EDT [facility] Potassium, Plasma 4.1 3.6 - 4.9 mmol/L 12/15/2024 4:54 PM EDT [facility] Chloride, Plasma 105 97 - 107 mmol/L 12/15/2024 4:54 PM EDT [facility] CO2, Plasma 21(L) 22 - 29 mmol/L 12/15/2024 4:54 PM EDT [facility] Anion Gap 14 6 - 16 mmol/L 12/15/2024 4:54 PM EDT [facility] Total Calcium, Plasma 9.4 8.9 - 10.2 mg/dL 12/15/2024 4:54 PM EDT [facility] Total Protein 8.1(H) 6.3 - 7.9 g/dL 12/15/2024 4:54 PM EDT [facility] Albumin, Plasma 4.6 3.5 - 5.2 g/dL 12/15/2024 4:54 PM EDT [facility] AST, Plasma 16 10 - 35 U/L 12/15/2024 4:54 PM EDT [facility] ALT, Plasma 23 10 - 35 U/L 12/15/2024 4:54 PM EDT [facility] Alkaline Phosphatase, Plasma 58 35 - 104 U/L 12/15/2024 4:54 PM EDT [facility] Total Bilirubin, Plasma 0.7 0.2 - 1.1 mg/dL 12/15/2024 4:54 PM EDT [facility] eGFRcr 127.1 mL/min/1.7 3m*2 12/15/2024 4:54 PM EDT [facility] Comment:Reported eGFRcr in m L/min/1.73m2 is based the CKD-EPI 2020 equation that does not use a race coefficient. Blood Venous blood specimen / Unknown Venipuncture / Unknown 12/15/2024 3:29 PM EDT 12/15/2024 3:30 PM EDT [facility] BLOOD ORDERABLES Final Res ult Performing Organization Address [facility] Co de Phone Number [facility] [address] [place] [address] * Prothrombin Time/INR (12/15/2024 3:29 PM EDT) Prothrombin Time 13.7 12.0 - 14.3 sec LAB COAGULATION METHOD 12/15/2024 5:05 PM EDT [facility] INR 1.0 0.9 - 1.1 LAB COAGULATION METHOD 12/15/2024 5:05 PM EDT [facility] Blood Venous blood specimen / Unknown Venipuncture / Unknown 12/15/2024 3:29 PM EDT 12/15/2024 3:30 PM EDT Narrative [facility] - 12/15/2024 5:05 PM EDT OPTIMAL INR RANGES FOR PATIENT ON ORAL ANTICOAGULANT THERAPY Prevention of venous thromboembolism INR 2.0 to 3.0 In patients with heart disease: Atrial fibrillation INR 2.0 to 3.0 Valvular heart disease INR 2.0 to 3.0 Tissue heart valves INR 2.0 to 3.0 Mechanical prosthetic valves INR 2.5 to 3.5 Prevention of recurrent AR INR 2.5 to 3.5 us [facility] LAB BLOOD ORDERABLES Final Res ult Performing Organization Address [facility] Co de Phone Number [facility] [address] [place] [address] * (ABNORMAL) Brayan Henson IgG Ab (12/15/2024 3:29 PM EDT) EBV ANTIBODY TO VIRAL CAPSID ANTIGEN IGG 185.0(H) 0.0 - 21.9 U/mL 12/18/2024 11:11 AM EDT [facility]) Blood Venous blood specimen / Unknown Venipuncture / Unknown 12/15/2024 3:29 PM EDT 12/15/2024 3:30 PM EDT Narrative [facility]) - 12/18/2024 11:11 AM EDT INTERPRETIVE INFORMATION: Brayan-Henson Virus Antibody to Viral Capsid Antigen, IgG 17.9 U/mL or less.......Not Detected 18.0-21.9 U/mL..........Indeterminate - Repeat testing in 10-14 days may be helpful. 22.0 U/mL or greater....Detected Performed By: [facility] [address] [place] [address] Photonics Technician: Wilber Pardo MD, PhD CLIA Number: [id number] us [facility] LAB BLOOD ORDERABLES Final Res ult [facility] [address] [place] [address] * Brayan-Henson virus VCA, IgM (12/15/2024 3:29 PM EDT) Pathologist [facility] EBV ANTIBODY TO VIRAL CAPSID ANTIGEN IGM <10.0 0.0 - 43.9 U/mL 12/18/2024 11:09 AM EDT [facility]) Blood Venous blood specimen / Unknown Venipuncture / Unknown 12/15/2024 3:29 PM EDT 12/15/2024 3:30 PM EDT Narrative [facility]) - 12/18/2024 11:09 AM EDT INTERPRETIVE INFORMATION: Brayan-Henson Virus Antibody to Viral Capsid Antigen, IgM 35.9 U/mL or less.......Not Detected 36.0-43.9 U/mL..........Indeterminate - Repeat testing in 10-14 days may be helpful. 44.0 U/mL or greater....Detected Performed By: [facility] [address] [place] [address] Photonics Technician: Wilber Pardo MD, PhD CLIA Number: [id number] us [facility] LAB BLOOD ORDERABLES Final Res ult [facility] ([facility]) [address] [place] [address] documented in this encounter Visit Diagnoses Diagnosis Weight loss- Primary Loss of weight Abdominal pain, epigastric Diarrhea, unspecified type Postural orthostatic tachycardia syndrome (POTS) Hematochezia Blood in stool Elevated fecal calprotectin Urticaria Unspecified urticaria History of anesthesia reaction Gastroesophageal reflux disease, unspecified whether esophagitis present Gilbert's syndrome Disorders of bilirubin excretion Nausea and vomiting, unspecified vomiting type BMI 23.0-23.9, adult documented in this encounter Additional Health Concerns Active Problems Noted Date Diagnosed Date CPM S22 PP LABOR (OBSTETRICS) 02/24/2024 Assessment Noted Time PHQ-9 Depression Total Score: 2 12/16/19 2:22 PM EDT A fall risk assessment has been complete d for the patient 12/15/2024 2:23 PM EDT A Body Mass Index follow-up plan has been documented for the patient 12/23/2024 4:20 PM EDT documented as of this encounter Care Teams Networking Technician Relationship Specialty Start Date End Date eRy Wyatt MD [address] [place] [address] PCP - General 11/16/24 Angela Oleary, RN [facility] Registered Nurse Cardiology 02/17/24 documented as of this encounter
--- OUTSIDE RECORDS SUMMARY | 2025-01-17 06:36 | XMS_ITS | Encounter Summary ---
Author Organization [facility] Address [address] [place] [address] Care Team Providers Care Putter In Name Role Phone Angela Oleary RN Unavailable Unavailable Rey Wyatt MD Primary Care Provider [phone] Reason for Referral * Imaging (Routine) - Closed Specialty Diagnoses / Procedures Referred By Mili joe Referred To Contact Gastroenterology Diagnoses Abdominal pain, epigastric Diarrhea, unspecified type Weight loss Hematochezia Procedures Capsule Endoscopy Silverio Tam PA [address] [address] Phone: tel: fax: Referral ID Status Reason Start Date Expiration Date V isits Requested Visits Authorized [id number] Closed Specialty Services Required 12/28/2024 06/29/2026 1 1 Reason for Visit * Imaging (Routine) - Closed Specialty Diagnoses / Procedures Referred By Mili joe Referred To Contact Gastroenterology Diagnoses Abdominal pain, epigastric Diarrhea, unspecified type Weight loss Hematochezia Procedures Capsule Endoscopy Silverio Tam PA [address] [facility] [address] [place] [address] Phone: tel: fax: Referral ID Status Reason Start Date Expiration Date V isits Requested Visits Authorized [id number] Closed Specialty Services Required 12/28/2024 06/29/2026 1 1 Encounter Details Date Type Department Care Team (Latest Contact Info) Description 01/17/2025 6:36 AM EDT - 01/17/2025 11:59 PM EDT Hospital Encounter PAV S Endoscopy [address] [place] [address] Cody Barnett MD [address] [place] [address] Abdominal pain, epigastric; Diarrhea, unspecified [...] Score 0 12/15/2024 [facility] of Occupat ional Health - Occupational [...] health care facility (including now)? 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 0 07/16/2024 CAGE Questionnaire Score 0 024 Utilities Answer Date Recorded In the past 12 months has th e [employer], gas, oil, or water [employer] threatened to shut off services in your [...] mild pain. 30 tablet 1 07/18/2024 Lancets (Student Designed Delica Plus [id number]) [facility] 04/14/2024 ondansetron (Zofran) 4 MG tablet Take 1 tablet (4 mg) by mouth every 8 (eight) hours if needed for nausea or vomiting. 3 tablet 5 07/18/2024 ondansetron ODT (Zofran-ODT) 4 MG disintegrating tablet Dissolve 2 tablets on the tongue every 8 hours as needed for nausea or vomiting. 20 tablet 5 12/30/2024 iTwixie test strip 1 each by Other route [...] day. 30 tablet 1 07/18/2024 sodium chloride ([place] Nasal [place]) 0.65 % nasal spray Administer 1 spray [...] Medications Medication Instructions Blood Glucose Monitoring Suppl (PowerOne MediaTouch Verio Reflect) w/Device kit busPIRone (BUSPAR) 5 [...] mg, Oral, Every 6 hours PRN Lancets (PowerOne MediaTouch Delica Plus [id number]) misc methIMAzole (TAPAZOLE) 10 mg, Oral, Daily ondansetron (ZOFRAN) 4 mg, Oral, Every 8 hours PRN ondansetron ODT (ZOFRAN-ODT) 8 mg, Oral, Every 8 hours PRN PowerOne MediaTouch Verio test strip 1 each, As needed potassium & sodium phosphates (Phos-NaK) 280-160-250 MG packet 1 packet, Oral, Daily Vit-Fe Fumarate-FA ( Vitamins) 28-0.8 MG tablet 1 tablet, Oral, Daily propranolol (INDERAL) 20 mg, Oral, 3 times daily senna-docusate (Codi-Colace) 8.6-50 MG tablet 1 tablet, Oral, Daily sodium chloride ([place] Nasal [place]) 0.65 % nasal spray 1 spray, Each [...] min Stress: No Stress Concern Present (02/22/2024) [place] of Occupational Health - Occupational Stress Questionnaire Feeling of Stress : Not at all Social Connections: Moderately Isolated (02/22/2024) Social Connection and Isolation Panel Frequency of Communication with Friends and Family: More than three times a week Frequency of Social Gatherings with Friends and Family: Once a week Attends Nondenominational Services: Never Active Member of Clubs or [...] Description 02/16/2025 1:20 PM EDT Office Visit [facility] [place] [address] [facility], [address] [place] [address] Courtney Torres MD [address] [place] [address] 03/15/2025 3:30 PM EDT Consult [facility] [address], [address]st [place] [address] Kendy Sanchez APRN [address] [place] [address] 04/17/2025 2:00 PM EDT Office Visit [facility] [address], [address] [place] [address] Silverio Tam PA [address] [place] [address] documented as of this encounter [...] the images and this is my reading. Silverio CELESTE GI PROCEDURE ORDERABLES Final Result [...] documented as of this encounter Care Teams Putter In Relationship Specialty Start Date End Date Rey Wyatt MD [address] [facility] [address] [place] [address] PCP - General 11/16/24 Angela Oleary, RN [facility] Registered Nurse Cardiology 02/17/24 documented as of this encounter
--- OUTSIDE RECORDS SUMMARY | 2025-02-08 08:18 | XMS_ITS | Encounter Summary ---
Author Organization Healthcare Address [address] [place] [address] Care Team Providers Care Fish Header Name Role Phone Molly Louis MD Primary Care Provider [phone] Angela Oleary RN Unavailable Unavailable Rey Wyatt MD Primary Care Provider [phone] Reason for Visit * Reason Onset Date Comments Med Refill 03/23/2024 Encounter Details Date Type Department Care Team ([facility] Contact Info) Description 03/23/2024 Refill Medical Office Building Obstetrics and Gynecology [address], [address] [place] [address] Shalonda Davies, ANODE MACHINE OPERATOR [address] [place] [address] Social History Tobacco Use Types [...] How often do you attend chur or worship services? Never 02/22/2024 Do you [...] in a prison (including now)? 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) to steady your nerves or to [...] Description 02/16/2025 1:20 PM EDT Office Visit [facility] [address], [address] [place] [address] Courtney Torres MD [address] [place] [address] 03/15/2025 3:30 PM EDT Consult [facility] [address] [place] [address] Kendy Sanchez, ANODE MACHINE OPERATOR [address] [place] [address] 04/17/2025 2:00 PM EDT Office Visit [facility] [address] [place] [address] Silverio Tam PA [address] [place] [address] documented as [...] documented as of this encounter Care Teams Fish Header Relationship Specialty Start Date End Date Molly Louis MD [address] [place], [place] [id number] PCP - General Family Medicine 02/09/24 11/15/24 Rey Wyatt MD [address] [place] [address] PCP - General 11/16/24 Angela Oleary, RN [facility] Registered Nurse Cardiology 02/17/24 documented as of this encounter
--- OUTSIDE RECORDS SUMMARY | 2025-02-08 08:18 | XMS_ITS | Data Portability ---
Author Organization [facility] & LeonardaMELINA ADMIN Address [address] [place] [address] Care Team Providers Care Auto Driver Name Role Phone MOLLY BOLTON Primary Care Provider [phone] Assessment No assessment recorded. Plan of Treatment Reminders Order Date Submit Date Provider Last Modified By Organization Details Last Modified Time Details Appointments MENTAL [facility]ALTH 60 2024 11:00A FLAVIA HERNANDEZ Not available Not available Not available Lab urinalysi s, dipstick 2023 024 [email or web address] [facility]- Floor 2, 606, [address], [address], [place], [address], 12/14/2023 13:09:11 culture, urine 2023 024 [facility], [address] [place] [address] [place], [address], 12/14/2023 19:07:28 Referral [facility] referral - Anxiety not respondin g to buspirone . patient. Counselin g and medicatio n managemen t. 2023 024 KEATON [facility], [address] [place], [address], 04/05/2024 14:52:37 dermatolo gist referral 2023 024 [email or web address] [facility], [address] [place] [address], [address], 10/20/2023 12:02:18 Procedures None recorded. Surgeries None recorded. Imaging None recorded. Medication Orders doxylamin e 10 mg-pyrido xine (vit B6) 10 mg tablet,de layed release 2023 024 [facility], [address] [place] [address] [address], [place], [place], [id number], 12/14/2023 11:36:15 cephalexi n 500 mg tablet 2023 024 [facility], [address] [place] [address] [address], [place], [place], [id number], 02/02/2024 08:44:10 ondansetr on 4 mg disintegr ating tablet 2023 024 [facility], [address] [place] [address] [address], [place], [id number], 12/14/2023 11:38:18 labetalol 100 mg tablet 2023 024 [facility], [address] [place] [address] [address], [place], [place], [id number], 02/02/2024 08:44:37 Patient TargetsNo targets recorded. Patient Instructions Encounter Date Encounter Id Patient Instructions Last Modified By Organization Details Last Modified Time 09/22/2023 [id number] Follow-up for yearly exam 02/2024 and prn [email or web address] Not available 09/22/2023 18:44:56 12/14/2023 [id number] Follow-up prn [email or web address] Not available 12/14/2023 21:37:32 02/02/2024 [id number] Follow-up prn (patient's current symptoms to be managed by cardiology and OB/MFM). 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 patient. Counseling and medication management. Referring Physician: Molly Bolton [facility] Medicine, Encounter Date: 03/22/2024 Results Created [...] Available [facility] [address] [place] [address] [place], [address], 12/02/2023 17:18:42 12/02/19 24 12/02/2023 HCG BETA QUANT ITATI VE note Unles s other juan noted testi ng perfo rmed at: [facility] [address] [place] [address] Micah plascencia MD Not Available [facility] ([facility]) [address] [place] [address] [place], [address], 12/02/2023 17:18:42 12/14/19 24 12/14/2023 CULTU RE URINE W PRESU MP ID results [facility] 12-14 912 No Signi fican t Growt h at 1 Day [facility] 12-15 711 No Signi fican t Growt h at 2 Days Not Available [facility] ([facility]) [address] [place], [address], 12/16/2023 07:13:14 12/14/19 24 12/14/2023 CULTU RE URINE W PRESU MP ID note Unles s other juan noted testi ng perfo rmed at: [facility] [address] [place] [address] Micah plascencia MD Not Available [facility] ([facility]) [address] [place] [address] [place], [address], 12/16/2023 07:13:14 12/14/19 24 12/14/2023 urina lysis , dipst ick Leukocytes (reference range) small Not Available [facility]- Floor 2, [address] [facility] [address] [place] [address], [address], 12/14/2023 11:20:55 12/14/19 24 12/14/2023 urina lysis , dipst ick Nitrite (reference range:) negati ve Not Available [facility]- Floor 2, 606 [address] [facility] [address] [place] [address], [address], 12/14/2023 11:20:55 12/14/19 24 12/14/2023 urina lysis , dipst ick Urobilinogen (reference range) 0.2 Not Available [facility]- Floor 2, [address] [place] [address], [address], 12/14/2023 11:20:55 12/14/19 24 12/14/2023 urina lysis , dipst ick Protein (reference range) 30 Not Available [facility]- Floor 2, [address] [facility] [address] [place] [address], [address], 12/14/2023 11:20:55 12/14/19 24 12/14/2023 urina lysis , dipst ick pH (reference range 5-8.5) 5.5 Not Available [facility]- Floor 2, [address] [facility], [place], [address], 12/14/2023 11:20:55 12/14/19 24 12/14/2023 urina lysis , dipst ick Blood (reference range:) negati ve Not Available [facility]- Floor 2, [address] [facility], [place], [address], 12/14/2023 11:20:55 12/14/19 24 12/14/2023 urina lysis , dipst ick Specific [place] (reference range) 1.030 Not Available [facility]- Floor 2, [address] [facility], [place], [address], 12/14/2023 11:20:55 12/14/19 24 12/14/2023 urina lysis , dipst ick Ketone (reference range) modera te Not Available [facility]- Floor 2, [address] [facility], [place], [address], 12/14/2023 11:20:55 12/14/19 24 12/14/2023 urina lysis , dipst ick Bilirubin (reference range) small Not Available [facility]- Floor 2, [address] [facility] [facility], [place], [address], 12/14/2023 11:20:55 12/14/19 24 12/14/2023 urina lysis , dipst ick Glucose (reference range) negati ve Not Available [facility]- Floor 2, [address] [facility], [place], [address], 12/14/2023 11:20:55 12/14/19 24 12/14/2023 urina lysis , dipst ick Color (reference range: yellow-brown ) Brown Not Available [facility]- Floor 2, [address] [place] [address] [place], [address], 12/14/2023 11:20:55 11/20/19 24 11/20/2023 CT, abdom en + pelvi s, w/ contr ast No observ ation record ed. [address] Registration [address] [facility] [place], [address], 11/20/2023 22:38:19 01/12/20 24 01/12/2024 XR, chest No observ ation record ed. [address] (Registration ) [address] [place] [address] [place], [address], 01/12/2024 13:53:47 01/12/20 24 01/12/2024 US, obste tric No observ ation record ed. [address] (Registration ) [address] [place] [address] [place], [address], 01/12/2024 17:05:57 01/20/20 24 01/20/2024 elect rocar diogr am No observ ation record ed. [email or web address], [place], [address], 01/21/2024 12:30:49 01/22/20 24 01/22/2024 imagi ng inter preta tion No observ ation record ed. [email or web address] [address], [place], [address], 01/25/2024 11:42:05 01/22/20 24 01/22/2024 imagi ng inter preta tion No observ ation record ed. [email or web address] [address], [place], [address], 01/25/2024 11:41:58 02/06/20 24 02/05/2024 elect rocar diogr am, routi ne ECG, 12 leads min No observ ation record ed. [address], [place], [address], 02/07/2024 14:15:54 04/27/20 24 04/27/2024 rhyth m strip , EKG* No observ ation record ed. [email or web address] [facility] [address], [place], [address], 04/28/2024 15:07:12 07/27/19 25 07/27/2024 imagi ng inter preta tion No observ ation record ed. [email or web address] [facility] [address], [place], [address], 07/28/2024 10:45:22 07/27/19 25 07/27/2024 elect sherryjosh peñamichele lema No observ ation record ed. [facility] [address], [place], [address], 07/28/2024 10:45:06 Result Notes None recorded. Problems Name Problem SNOMED Code Status Onset Date Resolution Date Notes Provider Name and Address Organization Details Recorded Time Gilbert's syndrome 59876265 Active 2022 Not Available [facility] 4 05:51:07 Gallstone 254612520 Active 2022 Not Available [facility] 4 05:51:07 Fracture of hand 20510502 Active 2022 Had two pins placed of the fifth metatar petr. Not Available [facility] 4 05:51:07 Sore throat 350436116 Active 2022 Not Available [facility] 4 05:51:07 Hematochezia 384416194 Active 2022 Not Available [facility] 4 05:51:07 Diarrhea 40720302 Active 2022 Not Available [facility] 4 05:51:07 Nausea 136818332 Active 2022 Not Available [facility] 4 05:51:07 Generalized abdominal pain 043331276 Active 2022 [facility] Available [facility] 4 05:51:07 Problem Notes None recorded. Procedures Surgical History Date Name Laterality Status Provider Name and Address Organization Details Recorded Time 07/31/19 24 laparoscopic cholecystectomy completed Teresa KRISHNAN - [facility] & [place] 08/03/2023 09:25:16 11/09/19 23 Date of Last Pap Smear completed Deb Clark [place] - [facility] & [place] 05/28/2023 14:21:22 07/27/19 23 Other completed Shani KRISHNAN - [facility] & [place] 08/20/2023 13:45:01 03/03/20 22 EGD/Endoscopy completed Kymberly Gar [place] - [facility] & [place] 05/19/2023 08:29:18 07/27/19 02 ENT Surgery completed Shani Nailso [place] - [facility] & [place] 08/20/2023 13:45:01 07/27/19 01 ENT Surgery completed Shani Nailso [place] - [facility] - [place] & [place] 08/20/2023 13:45:01 Tonsillectomy completed Shani KRISHNAN - [facility] & [place] 07/08/2023 12:32:45 Dilation and Curettage completed Deb Clark [place] - [facility] & [place] 01/26/2024 09:25:24 Imaging Results None recorded. Procedure Notes None recorded. Medical Equipment None Reported. Allergies Allergen ID Allergen Name Allergen Category Reaction Reaction Severity Criticality Documentation Date Start Date Code Code System Note Provider Name and Address Organization Details Recorded Time 295386 cinnamon preparati on food,medi cation other severe Not available 12/09/2023 88310 5 RxNorm throa t aurelio s Deb Montanae null, [place] - [facility] & [place] 4 09:50:32 58195 Augmentin medicatio n rash Not available Not available 09/18/2022 19906 2 RxNorm Anmol Pelayo null, [place] - [facility] & [place] 3 12:59:17 55763 Product containin g penicilli n (product) medicatio n Not available Not available Not available 09/18/2022 98897 8001 SNOMED Anmol Pelayo null, [place] - [facility] - [place] & [place] 3 12:59:25 Medications Name Sig Start Date [...] Updated DateTime 4 162.56 cm 24.6 kg/m2 45132.1 5 g 98.2 [degF] 99 % 99 % 98 /min 110/80 mm[Hg] Francy SUMMERS [facility] & [place] 4 15:41:55 Date Recorded Body height Body mass index (BMI) Body weight Body temperature Oxygen saturation Oxygen saturation in Arterial blood by Pulse oximetry Heart rate Systolic And Diastolic Provider Name and Address Organization Details Last Updated DateTime 4 162.56 cm 23.6 kg/m2 29699.8 7 g 98.5 [degF] 97 % 97 % 88 /min 140/80 mm[Hg] Francy SUMMERS [facility] & [place] 4 10:46:22 Date Recorded Body height Body mass index (BMI) Body weight Body temperature Oxygen saturation Oxygen saturation in Arterial blood by Pulse oximetry Heart rate Systolic And Diastolic Provider Name and Address Organization Details Last Updated DateTime 4 162.56 cm 20.8 kg/m2 39304.6 8 g 98.6 [degF] 99 % 99 % 100 /min 110/70 mm[Hg] Francy SUMMERS [facility] [place] 4 08:35:15 Date Recorded Body height Body mass index (BMI) Body weight Body temperature Oxygen saturation Oxygen saturation in Arterial blood by Pulse oximetry Heart rate Systolic And Diastolic Provider Name and Address Organization Details Last Updated DateTime 4 162.56 cm 20.4 kg/m2 70943.4 9 g 98.7 [degF] 100 % 100 % 76 /min 110/60 mm[Hg] Francy SUMMERS [facility] & [place] 4 08:35:40 Date Recorded Body height Body mass index (BMI) Body weight Body temperature Oxygen saturation Oxygen saturation in Arterial blood by Pulse oximetry Heart rate Systolic And Diastolic Provider Name and Address Organization Details Last Updated DateTime 4 162.56 cm 20.8 kg/m2 69500.6 8 g 98.8 [degF] 99 % 99 % 98 /min 100/60 mm[Hg] Hesstonfrancheska SUMMERS [facility] [place] 09:07:24 Social History Question Answer Notes LastModified by Organizat ion Details LastModified Time Tobacco Smoking Status Former Smoker Francy Holland [facility], [place] - [facility] - [place] & [place] 03/17/2023 09:23:30 Do You Have An Advance Directive? No [email or web address] Information not available 05/28/2023 Are You Blind Or Do You Have Difficulty Seeing? No [email or web address] Information not available 05/28/2023 When Did You Quit Smoking? 1-5yearssinc elastcigaret te Information not available 08/13/2023 Are You Passively Exposed To Smoke? No Information not available 05/28/2023 How Many Years Have You Smoked Tobacco? 12 [email or web address] Information not available 03/17/2023 Sex: Female Functional Status Question Answer Note LastModified by Organizat ion Details LastModified Time Do you use any illicit or recreational drugs? No Information not available 03/17/2023 Do you or have you ever used any other forms of tobacco or nicotine? Yes Information not available 08/13/2023 What is your level of alcohol consumption? None [email or web address] Information not available 03/17/2023 Do you or have you ever used e-cigarettes or vape? Current user of electronic cigarettes Information not available 08/13/2023 What is your exercise level? Occasional [email or web address] Information not available 05/28/2023 Mental Status None recorded. Family History Relationship Description Onset Age of this Age Resolved Age Notes LastModified by Organization Details LastModified Time Father Family history of malignant neoplasm [email or web address] Not available 07/12/2024 08:20:21 Father Myocardial infarction 62 pt. added direct ly (04/28) Not available 08/20/2023 13:44:57 Brother Family history of Crohn's disease [email or web address] Not available 2023 08:20:21 Brother Autoimmune disease pt. added direct ly (04/28) [email or web address] Not available 04/28/2023 16:28:54 Mother Autoimmune disease pt. added direct ly (04/28) [email or web address] Not available 04/28/2023 16:28:41 Mother Disorder of thyroid gland [email or web address] Not available 2023 13:44:57 Mother Disease of liver [email or web address] Not available 2023 11:15:11 Sister Heart disease [email or web address] Not available 2023 13:44:57 Unspecified Relation Family [...] Recorded Time IPV 2 completed Not Available [facility] 08/05/2023 05:51:08 MMR 2 completed Not Available [facility] 08/05/2023 05:51:08 COVID-19 vaccine, vector-nr, rS-Ad26, PF, 0.5 mL 1 completed Not Available [facility] 08/05/2023 05:51:08 Tdap 0 completed Not Available [facility] 08/05/2023 05:51:08 varicella 1 completed Not Available [facility] 08/05/2023 05:51:08 HPV, quadrivalent 1 completed Not Available [facility] 08/05/2023 05:51:08 Hep A, ped/adol, 2 dose 1 completed Not Available [facility] 08/05/2023 05:51:08 Hep A, ped/adol, 2 dose 0 completed Not Available [facility] 08/05/2023 05:51:08 DTaP, unspecified formulation 2 completed Not Available [facility] 08/05/2023 05:51:08 Past Encounters Encounter ID Performer Location Encounter Start Date Encounter Closed Date Diagnosis/Indication Diagnosis SNOMED-CT Code Diagnosis ICD10 Code Diagnosis Note [id number] Marizol Paez MD [facility] [place] [address] [facility] [place] [address] 09/18/2022 12:53:09 09/18/2022 13:34:47 Pain in throat 439585551 R07.0 Strep swab in the office today was negative. Suggest this is a viral issue and will take time to resolve. Nausea 001264929 R11.0 Likely due to her underlying illness. Son also recently diagnosed with a viral illness. She understand s the importance of pushing fluids. Gilbert's syndrome 97892 000 E80.4 Pityriasis versicolor 56 630371 B36.0 Suggested OTC lamisil cream. [id number] BOOKER OLIVARES [facility]- Floor 1, [address] [facility] [address] [place] [address] 11/26/2022 12:14:40 11/26/2022 12:41:53 Nail deformity 680409299 L60.8 no obvious sign of fungal infection. Nail loss may be related to initial injury. Continue to monitor at home, follow up with any new or worsening symptoms. [id number] Cassie Jimenez [facility] Immediate Care- Floor 1, [address] [facility],[place] [address] [place] [address] 01/21/2023 07:59:03 01/21/2023 08:28:49 Cough 51011918 R05.1 Generalize d aches and pains 70764402 R52 Exposure t o Influenzavirus 966911387 Z20.828 Nausea 427816202 R11.0 Viral syndrome 392499115 B34.9 [id number] Saskia Soriano APRN [facility] Immediate Care- Floor 1, [address] [place] [address],[facility] [address] [place] [address] 02/10/2023 15:16:39 02/10/2023 15:42:50 Sore throat 044548262 J02.9 We will contact with results of throat culture when available and treat if indicated. Increase fluid intake until better, Tylenol/Mo juan ramon as needed, salt water gargle twice a day. Follow up with any new or worsening symptoms. Discard toothbrush as we discussed. Exposure t o SARS-CoV-2 988890468 Z20.822 Continue with hand hygiene, social distancing and vaccines as recommende d by PCP. Viral syndrome 455247034 B34.9 Possibly HFMD, discussed supportive measures. [id number] Molly Bolton MD [facility] Primary Care- Floor 2, [address] [place] [address],[facility] [address] [place] [address] 03/17/2023 09:03:37 03/17/2023 10:09:55 Irritable bowel syndrome 84936330 K58.9 Continue zofran prn nausea. Referral to GI for futher work-up. Chronic low back pain 27 5367763 M54.50 Continue meloxicam prn [id number] Molly Bolton MD [facility] Primary Care- Floor 2, [address] 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 Continue meloxicam and tylenol. Referring to Ortho Spine as precaution . Follow-up in 6 weeks and prn [id number] Indu Decker NP [address] [place] [address] 05/19/2023 07:54:57 05/19/2023 16:07:23 Hematochezia 801323922 K92.1 6-7 month history hematochez ia, describes large amount at times. Recommend labs today. Recommend colonoscop y to further evaluate r/o colitis, internal hemorrhoid s, other. Pt is scheduled for Colon 06/25 @ 9:00 AM Diarrhea 44416098 R19.7 History of alternatin g constipati on diarrhea. Experienci ng worsening diarrhea over the past 2 weeks. Plan for x-ray abdomen KUB to rule out underlying stool burden. Recommend colonoscop y with random colon biopsies to rule out underlying colitis, other. Plan for labs today. Patient's brother with history of Crohn's. Nausea 788873507 R11.0 Daily episodes of nausea ongoing for several years. EGD reviewed 03/03/[address] Leslie appeared normal, pathology negative for H pylori or celiac. Recommend gallbladde r US to further evaluate. Generalize d abdominal pain 422808056 R10.84 Episodes of upper abdominal pain radiating down throughout her abdomen. Plan for gallbladde r ultrasound as above as well as labs. Recommend colonoscop y to further evaluate. No etiology identified on EGD from 02/2022. [id number] Molly Bolton MD [facility] Primary Care- Floor 2, [address] 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 Continue meloxicam (if makes to drowsy can take tylenol or ibuprofen instead, discussed taking NSAIDs with food so as not to upset her stomach). Continue amitriptyl line (discussed that it is ok for her to take 10-20 mg rather than 5 mg). Nausea 849589019 R11.0 Following with GI and has upcoming HIDA scan and colonoscop y scheduled. Continue zofran prn. [id number] Francy Su, DO [place] [facility] - [address], [address] [place] [address] 07/09/2023 13:46:06 07/09/2023 15:31:08 Chronic cholecystitis 37119255 K81.1 I do feel that she is [...] low-fat diet. Irritable bowel syndrome with diarrhea 068467416 K58.0 I do think she has irritable bowel syndrome with diarrhea we did discuss that laparoscop ic cholecyste ctomy will probably not take care of all of those symptoms. She understand s. 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 Suspect possible pityriasis alba vs. pityriasis versicolor . Will treat for both possibilit ies with combinatio n steroid-an tifungal cream (as planning to have abdominal surgery soon, suggested just treating her back at this time and waiting until wounds heal after surgery to treat her abdomen. Chronic cholecystitis 20 589325 K81.1 Patient scheduled for cholecyste ctomy 07/24/23 Low back p ain co-occurrent with neuralgia of right sciatic nerve 1717618555 77523 M54.41 She is now following with Orthopedic s and will do PT after she has her gallbladde r surgery. [id number] Saskia Soriano APRN [facility] Immediate Care- Floor 1, [address],[place] [address] [place] [address] 07/24/2023 08:07:21 07/24/2023 08:47:22 Sore throat 648089437 J02.9 Suspect viral etiology. Continue with symptom management , salt water gargles BID. Follow up if no improvemen t in 3-5 days or sooner with worsening symptoms. Cough 69422574 R05.1 Suspect that this is viral. Recommend [...] in 7-10 days, sooner with worsening symptoms. [id number] Francy Su DO [place] [facility] - [address], [address] [place] [address] 08/13/2023 11:07:19 08/17/2023 14:08:53 Postoperative visit 674511594 Z48.89 Status post laparoscop ic cholecyste ctomy she is doing well. We discussed that if her loose stools continue, I can give her cholestyra mine if needed. She is going to let me know. She should continue lifting restrictio ns for another couple of weeks. She is to let me know if she needs to see me again. [id number] Molly Bolton MD [facility] Primary Care- Floor 2, [address] [place] [address],[address] [place] [address] 09/22/2023 14:35:17 09/22/2023 16:07:30 Generalized rash [id number] R21 Suspected pityriasis alba. Have treated with both topical steroids and antifungal s without resolution . Referring to dermatolog y for further evaluation . History of cholecystectomy [id number] Z90.49 Recovering well from recent cholecyste ctomy for chronic cholecysti tis. Low back p ain co-occurrent with neuralgia of right sciatic nerve [id number] 79094 M54.41 Following w/ spine surgeon Dr. Lobato who has ordered back braces and PT. Insomnia [id number] G47.0 0 Ok to use benadryl prn sleep. I have prescribed amitriptyl ine in past for her sciatica and said she might try this prn in place of the benadryl as it might also help with sleep. [id number] Molly Bolton MD [facility] Primary Care- Floor 2, 606 [address] [facility],[address] [place] [address] 12/14/2023 10:01:42 12/14/2023 12:08:18 Abnormal urinalysis [id number] R82.90 Hospital UA w positive LE and UA today in clinic with small LE. Given symptoms of abdominal cramping and ongoing diarrhea, will treat for possible UTI per below and send for culture Acute urin glenn tract infection [id number] N39.0 Will start treatment with keflex as and follow-up urine culture and adjust antibiotic s prn Palpitations 05840704 R0 0.2 Stop metoprolol and start labetalol. Patient has upcoming cardiology appt. Cardiac testing including troponins and TTE have so far been reassuring . Holter monitor results pending. Nausea and vomiting 1693 1999 R11.2 Start doxylamine -pyridoxin e for likely related nausea. Nausea 314946338 R11.0 Discussed trying doxylamine first for nausea and if breakthrou gh nausea can use zofran prn (class B in , likely safe) test positive 462737351 Z32.01 Patient has follow-up US later this week (elevated HCG but US has yet to confirm IUP) [id number] Molly Bolton MD [facility] Primary Care- Floor 2, [address] [place] [address],[address] [address] 02/02/2024 08:22:33 02/02/2024 09:24:10 Impaired mobility 61033494 Z74.09 Due to her POTS (becomes lightheade [...] as well. Postural o rthostatic tachycardia syndrome 260876800 G90.A Receiving periodic iv fluid injections ordered by OB and following with cardiology Tachycardia 2525814 R00. 0 Nice to be 2/2 to dehydratio n and POTS. Currently wearing holter monitor. Following with cardiology . Continue metoprolol . Hyperemesi s gravidarum 70837467 O21.0 Continue zofran. Following with OB Second tri mester 66948620 Z34.92 Following with OB. Anxiety 95892537 F41.9 Continue buspirone and hydroxyzin e prn. [id number] Molly Bolton MD [facility] Primary Care- Floor 2, [address] [facility] [address] [facility] [address] 03/22/2024 08:25:27 03/23/2024 07:20:01 Anxiety disorder 855199721 F41.9 Continue buspirone. Collected gene sight testing today to help guide medication management (with plan to forward to her provider when establishe s). Referring to for medication management and counseling . Postural o rthostatic tachycardia syndrome 252958197 G90.A Receiving periodic iv fluid infusions ordered by OB and following with cardiology Anemia 486666828 D64.9 Iv iron infusions being considered by her OB Hematochezia 689452308 K 92.1 Following with GI. Scopes being post-poned until after she delivers. [id number] FLAVIA KIRBY ic Intervent ions at [place] [address] [facility] [place] [address] 05/11/2024 10:46:21 05/18/2024 10:10:23 [id number] Molly Bolton MD [facility] Primary Care- Floor 2, [address] [facility] te [address] [place] [address] 07/12/2024 08:20:01 07/13/2024 07:24:42 Postural orthostatic tachycardia syndrome 049251575 G90.A Continues to have issues with standing, [...] Continues to follow with cardiology . Anxiety 95474539 F41.9 Continues on buspirone. 00247053 Z33.1 Following w/ obstetrics /MFM with plan for upcoming induction due to her POTS. [id number] FLAVIA KIRBY [facility]ath ic Intervent ions at [place] [address] [facility] [place] [address] 06/14/2024 10:38:56 06/14/2024 12:25:13 [id number] FLAVIA KIRBY Therapeut ic Intervent ions at [address] [place] [address] 09/05/2024 08:00:30 09/05/2024 10:08:29 [id number] FLAVIA KIRBY Therapeut ic Intervent ions at [address] [place] [address] 10/04/2024 09:53:14 10/04/2024 11:21:35 [id number] FLAVIA KIRBY Therapeut ic Intervent ions at [address] [place] [address] 11/09/2024 11:15:42 11/15/2024 08:27:33 [id number] FLAVIA KIRBY [facility] ions at [address] [place] [address] 12/13/2024 09:47:41 12/15/2024 15:09:13 Health Concerns Section Related Observation LastModified by Organization Detai ls LastModified Time None Recorded Concern Status LastModified by Organization Details LastModified Time None Recorded Advance Directives Directive N: Payers Insurance Date Sequence Insurance Name Policy Number Policy Zaidi Covered Member ID Zaidi Member ID Guarantor Name 03/23/2024 1 [place] [id number] Francy Miller [facility] [id number] Francy Miller [facility] 02/13/2024 [facility] Unknown Francy Miller [facility] 01/12/2025 1 [facility] (MEDICAID HMO) Francy Milelr [facility] [id number] Francy Miller [facility] 04/17/2023 2 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 I personally reviewed [facility] ER notes from 12/04/23 and 12/10/23 #PalpitationsPatient seen the above dates for palpitations at [facility] seen at [facility] in between these two ER visitsHRs up to 130s at first ER visit with otherwise normal vitalsShe was given 1L fluid bolus and phenergan at first ER visitAt the [facility] visit in between had unremarkable cardiac echo and negative CTA chestAt 2nd [facility] ER visit HRs up to 120s with otherwise normal vitalsWas given 1L fluid bolus, po metoprolol, and iv zofranReferral was made to Cardiology Dr. Virgen and outpatient cardiac monitoringLabs from 12/04/23 notable for CMP with slightly low K of 3.2, negative troponin, BHCG of 1193, negative UDS, unremarkable CBC, bland UALabs from 12/10/23 notable for normal [place], [place] [address], negative troponin, CMP with slightly elevated tbili [...] inSays she will be able to see hand salter in [facility] sooner than she can get into cardiology here Molly Bolton MD [address] [place] [address] Drive, [address], [place], [address], [place] - [facility] & [place] 12/14/2023 21:40:31 4 text/htm pj Delarosa is a 23 yo female with anxiety and depression, IBS-D, Gilbert's syndrome, chronic low back pain with sciatica, who present for hospital and ER follow-ups. She is accompanied to clinic by her [facility] and also went to ER 01/31/24 for elevated heart rate and n/v.Labs overall unremarkable (negative troponin, CMP without significant abnormalities, normal CBC 01/24/24 at [facility] and unremarkable CMP, CBC, lactic acid, lipase, and UA 01/31/24 at )Had has 2 OB US at 01/23/24 12 weeks gestation and had bedside US on 01/31/24 showing IUP with FHR of 152Was discharged on zofran, buspirone, hydroxyzine and metoprolol from [facility], felt to be having sinus tachycardia, possible POTs, and panic attacksFelt to have sinus tachycardia and dehydration at ER and given LR and zofran and prescribed pepcid at dischargeUK note mentioned patient currently wearing Holter monitor and hadShe says she continues to have some palpitations and dizziness with standingSays she is bed bound and wheelchair bound (she says that her hand salter made these specifications)Currently off workHaving a lot of nausea as well as diarrheaShe is getting banana bag infusions three times per week (ordered by her OB in [place]) and has been referred to high rigger at [facility] wearing Holter monitorReports HRs up to 170s-180s and sometimes looking like SVT on monitorsOn 25 mg metoprolol dailyShe is following with Dr. [facility] in [place] and has follow-up with them todaySays Holter monitor is to stay on until next weekSays yesterday was first day she went without a spell - no palpitations, no hand or feet numbness or tinglingSays current working diagnosis is POTSTaking buspirone and hydroxyzine prnSays not taking pepcid that was prescribed at [facility] have a cough productive of some yellow [...] OB to fill out Molly Bolton MD [address] [place] [address] Drive, [address], [place], [address], [place] - [facility] - [place] & [place] 02/02/2024 12:02:53 4 text/htm pj Delarosa is [...] drink and certain foodsContinues to follow with hand salter who has referred her to immunology (she is hoping to be tested for mcas)Says she has not heard from in [place] that I have referred her to (she [...] some with the POTs Molly Bolton MD [address] [place] [address], [address], [place], [address], [facility] - [facility] & [place] 03/22/2024 17:52:00 4 text/htm pj Delarosa is [...] with immunology, cardiology, MFM, and GI at [facility] time I saw patient in [...] prescription after she delivers) Molly Bolton MD [address] [place] [address], [address], [place], [address], [facility] & [place] 07/12/2024 12:23:22 OBGyn Episode No OBEpisode recorded.
--- OUTSIDE RECORDS SUMMARY | 2025-02-08 08:18 | XMS_ITS | Data Portability ---
Author Organization [facility] [place] [place] [place] Address [address] [place] [address] Assessment Encounter Date Assessment Date Assessment LastModified by Organization Details LastModified Time 12/18/2023 12/18/2023 Patient is ___weeks . Discussed plan. [email or web address] Not available 12/17/2023 10:25:59 Plan of Treatment Reminders Order Date Submit Date Provider Last Modified By Organization Details Last Modified Time Details Appointments None recorded. Lab urinalysis , dipstick [address], [address] [place] [address], [id number], 4 17:15:18 unlisted lab - qnatal(R) advanced 2023 024 [facility], [address], [place], [address], 4 01:26:17 rapid strep group A, throat 2023 024 [email or web address] [facility], [address] [place] [address], [place], [address], 4 13:42:01 urinalysis , dipstick 2023 024 [facility], [address] [place], [address], 4 10:47:53 Referral None recorded. Procedures None recorded. Surgeries None recorded. Imaging None recorded. Medication Orders cefdinir 300 mg capsule 2023 024 [email or web address] [facility], [address] [place] [address] [address], [place], [place], [id number], 4 16:54:44 Patient TargetsNo targets recorded. Patient Instructions Encounter Date Encounter Id Patient Instructions Last Modified By Organization Details Last Modified Time 01/06/2024 [id number] Increase fluid intake, take tylenol and motrin for pain/fever as needed, advised to take medication as prescribed to eradicate bacterial infection and reduce chances of antibiotic resistance. Change toothbrush in 24 hours. May return to school 24 hours after antibiotic therapy. Follow up with PCP or OB for symptoms not improving. Go to ER with any concerning symptoms. [email or web address] Not available 01/06/2024 14:35:51 Reason for Referral None Reported. Results Created Date Observation Date Name Description Value Unit Range Abnormal Flag Note LastModifiedBy Organization Detail LastModifiedTime 12/09/19 24 12/10/2023 HEPAT IC FUNCT ION PANEL protein, total 7.7 g/dL 6.1-8. 1 normal Not Available [facility] [place] [facility] [address] [facility] [place], [address], 12/10/2023 11:16:57 12/09/19 24 12/10/2023 HEPAT IC FUNCT ION PANEL albumin 4.7 g/dL 3.6-5. 1 normal Not Available [facility] [employer] [address], [place], [address], 12/10/2023 11:16:57 12/09/19 24 12/10/2023 HEPAT IC FUNCT ION PANEL globulin 3.0 g/dL_ (calc ) 1.9-3. 7 normal Not Available [facility] [facility] [place] [facility] [address] [facility], [place], [address], 12/10/2023 11:16:57 12/09/19 24 12/10/2023 HEPAT IC FUNCT ION PANEL albumin/glob ulin ratio 1.6 (calc ) 1.0-2. 5 normal Not Available [facility] [address] [place], [address], 12/10/2023 11:16:57 12/09/19 24 12/10/2023 HEPAT IC FUNCT ION PANEL bilirubin, total 2.6 mg/dL 0.2-1. 2 high Not Available [facility] [address] [place], [address], 12/10/2023 11:16:57 12/09/19 24 12/10/2023 HEPAT IC FUNCT ION PANEL bilirubin, direct 0.4 mg/dL < or = 0.2 high Not Available [facility] [address] [place] [address], [address], 12/10/2023 11:16:57 12/09/19 24 12/10/2023 HEPAT IC FUNCT ION PANEL bilirubin, indirect 2.2 mg/dL _(farhan c) 0.2-1. 2 high Not Available [facility] [address] [place], [address], 12/10/2023 11:16:57 12/09/19 24 12/10/2023 HEPAT IC FUNCT ION PANEL alkaline phosphatase 37 U/L 31-125 normal Not Available [employer] [facility] [address] [facility] [place], [address], 12/10/2023 11:16:57 12/09/19 24 12/10/2023 HEPAT IC FUNCT ION PANEL AST 14 U/L 10-30 normal Not Available [facility] [address] [place], [address], 12/10/2023 11:16:57 12/09/19 24 12/10/2023 HEPAT IC FUNCT ION PANEL ALT 12 U/L 6-29 normal Not Available [facility] [place] [facility] [address] [facility] [place], [address], 12/10/2023 11:16:57 12/09/19 24 12/10/2023 HCG, TOTAL , [place] [address] mIU/m L high Refer ence Range Nonpr [...] appro goldie by the FDA or the [facility] actur er of the assay . Not Available [facility] [place] [facility] [address] [facility], [place], [address], 12/10/2023 11:16:58 12/09/19 24 12/09/2023 urina lysis , dipst ick Leukocytes Modera te Not Available [address], [address], 12/09/2023 08:11:20 12/09/19 24 12/09/2023 urina lysis , dipst ick Nitrite negati ve Not Available [address], [address], 12/09/2023 08:11:20 12/09/19 24 12/09/2023 urina lysis , dipst ick Urobilinogen .2 Not Available [address], [address], 12/09/2023 08:11:20 12/09/19 24 12/09/2023 urina lysis , dipst ick Protein Negati ve Not Available [address], [address], 12/09/2023 08:11:20 12/09/19 24 12/09/2023 urina lysis , dipst ick pH 5.5 Not Available [address], [address], 12/09/2023 08:11:20 12/09/19 24 12/09/2023 urina lysis , dipst ick Blood Negati ve Not Available [address], [address], 12/09/2023 08:11:20 12/09/1912/09/2023 urina lysis , dipst ick Specific [place] 1.025 Not Available [address], [address], 12/09/2023 08:11:20 12/09/19 24 12/09/2023 urina lysis , dipst ick Ketone Small Not Available [address], [address], 12/09/2023 08:11:20 12/09/19 24 12/09/2023 urina lysis , dipst ick Bilirubin Negati ve Not Available [address], [address], 12/09/2023 08:11:20 12/09/19 24 12/09/2023 urina lysis , dipst ick Glucose Negati ve Not Available [address], [address], 12/09/2023 08:11:20 12/09/19 24 12/09/2023 urina lysis , dipst ick Appearance Clear Not Available [address], [address], 12/09/2023 08:11:20 12/09/19 24 12/09/2023 urina lysis , dipst ick Color Dark Yellow Not Available [facility] [address] [facility], [place], [address], 12/09/2023 08:11:20 12/09/19 24 12/09/2023 pregn suzanne test, urine HCG positi ve Not Available [facility] [address], [place], [address], 12/09/2023 08:11:34 12/18/19 24 12/22/2023 OBSTE TRIC PANEL W/FOU RTH GENER ATION HIV AND HEPAT ITIS C AB W/REF L white blood cell count 6.2 thous and/u L 3.8-10 .8 normal Not Available [facility] [place] [facility] [address] [place], [address], 12/22/2023 10:53:19 12/18/19 24 12/22/2023 OBSTE TRIC PANEL W/FOU RTH GENER ATION HIV AND HEPAT ITIS C AB W/REF L red blood cell count 4.24 iron on/uL 3.80-5 .10 normal Not Available [facility] [place] [facility] [address] [facility], [place], [address], 12/22/2023 10:53:19 12/18/19 24 12/22/2023 OBSTE TRIC PANEL W/FOU RTH GENER ATION HIV AND HEPAT ITIS C AB W/REF L hemoglobin 12.7 g/dL 11.7-1 5.5 normal Not Available [facility] [place] [facility] [address] [facility], [place], [address], 12/22/2023 10:53:19 12/18/19 24 12/22/2023 OBSTE TRIC PANEL W/FOU RTH GENER ATION HIV AND HEPAT ITIS C AB W/REF L hematocrit 38.7 % 35.0-4 5.0 normal Not Available [facility] [place] [facility] [address] [place], [address], 12/22/2023 10:53:19 12/18/19 24 12/22/2023 OBSTE TRIC PANEL W/FOU RTH GENER ATION HIV AND HEPAT ITIS C AB W/REF L MCV 91.3 fL 80.0-1 00.0 normal Not Available [facility] [place] [facility] [address] [facility], [place], [address], 12/22/2023 10:53:19 12/18/19 24 12/22/2023 OBSTE TRIC PANEL W/FOU RTH GENER ATION HIV AND HEPAT ITIS C AB W/REF L MCH 30.0 pg 27.0-3 3.0 normal Not Available [facility] [place] [facility] [address] [place], [address], 12/22/2023 10:53:19 12/18/19 24 12/22/2023 OBSTE TRIC PANEL W/FOU RTH GENER ATION HIV AND HEPAT ITIS C AB W/REF L MCHC 32.8 g/dL 32.0-3 6.0 normal Not Available [facility] [place] [facility] [address] [place], [address], 12/22/2023 10:53:19 12/18/19 24 12/22/2023 OBSTE TRIC PANEL W/FOU RTH GENER ATION HIV AND HEPAT ITIS C AB W/REF L RDW 12.0 % 11.0-1 5.0 normal Not Available [facility] [place] [facility] [address] [place], [address], 12/22/2023 10:53:19 12/18/19 24 12/22/2023 OBSTE TRIC PANEL W/FOU RTH GENER ATION HIV AND HEPAT ITIS C AB W/REF L platelet count 143 thous and/u L 140-40 0 normal Not Available [facility] [place] [facility] [address], [place], [address], 12/22/2023 10:53:19 12/18/19 24 12/22/2023 OBSTE TRIC PANEL W/FOU RTH GENER ATION HIV AND HEPAT ITIS C AB W/REF L MPV 11.8 fL 7.5-12 .5 normal Not Available [facility] [place] [facility] [address], [place], [address], 12/22/2023 10:53:19 12/18/19 24 12/22/2023 OBSTE TRIC PANEL W/FOU RTH GENER ATION HIV AND HEPAT ITIS C AB W/REF L absolute neutrophils 5233 cells /uL 1500-7 800 normal Not Available [facility] [place] [facility] [address], [place], [address], 12/22/2023 10:53:19 12/18/19 24 12/22/2023 OBSTE TRIC PANEL W/FOU RTH GENER ATION HIV AND HEPAT ITIS C AB W/REF L absolute lymphocytes 651 cells /uL 850-39 00 low Not Available [facility] [place] [facility] [address], [place], [address], 12/22/2023 10:53:19 12/18/19 24 12/22/2023 OBSTE TRIC PANEL W/FOU RTH GENER ATION HIV AND HEPAT ITIS C AB W/REF L absolute monocytes 273 cells /uL 200-95 0 normal Not Available [facility] [place] [facility] [address], [place], [address], 12/22/2023 10:53:19 12/18/19 24 12/22/2023 OBSTE TRIC PANEL W/FOU RTH GENER ATION HIV AND HEPAT ITIS C AB W/REF L absolute eosinophils 12 cells /uL 15-500 low Not Available [facility] [place] [facility] [address], [place], [address], 12/22/2023 10:53:19 12/18/19 24 12/22/2023 OBSTE TRIC PANEL W/FOU RTH GENER ATION HIV AND HEPAT ITIS C AB W/REF L absolute basophils 31 cells /uL 0-200 normal Not Available [facility] [place] [facility] [address], [place], [address], 12/22/2023 10:53:19 12/18/19 24 12/22/2023 OBSTE TRIC PANEL W/FOU RTH GENER ATION HIV AND HEPAT ITIS C AB W/REF L neutrophils 84.4 % normal Not Available [facility] [place] [facility] [address], [place], [address], 12/22/2023 10:53:19 12/18/19 24 12/22/2023 OBSTE TRIC PANEL W/FOU RTH GENER ATION HIV AND HEPAT ITIS C AB W/REF L lymphocytes 10.5 % normal Not Available [facility] [place] [facility] [address], [place], [address], 12/22/2023 10:53:19 12/18/19 24 12/22/2023 OBSTE TRIC PANEL W/FOU RTH GENER ATION HIV AND HEPAT ITIS C AB W/REF L monocytes 4.4 % normal Not Available [facility] [place] [facility] [address], [place], [address], 12/22/2023 10:53:19 12/18/19 24 12/22/2023 OBSTE TRIC PANEL W/FOU RTH GENER ATION HIV AND HEPAT ITIS C AB W/REF L eosinophils 0.2 % normal Not Available [facility] [place] [facility] [address], [place], [address], 12/22/2023 10:53:19 12/18/19 24 12/22/2023 OBSTE TRIC PANEL W/FOU RTH GENER ATION HIV AND HEPAT ITIS C AB W/REF L basophils 0.5 % normal Not Available [facility] [place] [facility] [address] [facility], [place], [address], 12/22/2023 10:53:19 12/18/19 24 12/22/2023 OBSTE TRIC [...] pregn suzanne. Not Available [facility] [place] [facility] [address] [facility], [place], [address], 12/22/2023 10:53:19 12/18/19 24 12/22/2023 OBSTE TRIC PANEL W/FOU RTH GENER ATION HIV AND HEPAT ITIS C AB W/REF L ABO group O Not Available [facility] [place] [facility] [address] [facility], [place], [address], 12/22/2023 10:53:19 12/18/19 24 12/22/2023 OBSTE TRIC PANEL W/FOU RTH GENER ATION HIV AND HEPAT ITIS C AB W/REF L Rh type RH(D) POSITI VE For addit ional infor cliff up e refer to http: //[facility] emily shah.Que stDia gnost ics.c om/fa q/FAQ 111 (This link is being provi ded for infor martell shen/ educa domi l purpo ses only. ) Not Available [facility] [place] [facility] [address] [facility], [place], [address], 12/22/2023 10:53:19 12/18/19 24 12/22/2023 OBSTE TRIC PANEL W/FOU RTH GENER ATION HIV AND HEPAT ITIS C AB W/REF L RPR (DX) w/refl titer and confirmatory testing NON-RE ACTIVE non-re active normal No labor atory evide nce of syphi lis. If recen t expos ure is suspe cted, submi t a new sampl e in 2-4 weeks . Not Available [facility] [place] [facility] [address] [facility], [place], [address], 12/22/2023 10:53:19 12/18/19 24 12/22/2023 OBSTE TRIC [...] only. ) Not Available [facility] [place] [facility] [address] [facility], [place], [address], 12/22/2023 10:53:19 12/18/19 24 12/22/2023 OBSTE TRIC [...] prese nce of rubel la IgG antib oksar sugge sts immun izati on or past or curre nt infec tion with rubel la virus . Not Available [facility] [place] [facility] [address] [facility], [place], [address], 12/22/2023 10:53:19 12/18/19 24 12/22/2023 OBSTE TRIC [...] n pleas e refer to http: //[facility] emily shah.bill stdia gnost ics.c om/fa q/FAQ 106 (This link is being provi ded for infor matio nal/ educa domi l purpo ses only. ) The perfo rmanc e of this assay has not been clini leobardo valid ated in patie nts less than 2 years old. Not Available [facility] [place] [facility] [address] [facility], [place], [address], 12/22/2023 10:53:19 12/18/19 24 12/22/2023 OBSTE TRIC [...] a test for HCV RNA (test code 38432 ) is sugge sted. For addit ional infor matio n pleas e refer to http: //[facility] duong stdia gnost ics.c om/fa q/FAQ 22v1 (This link is being provi ded for infor martell shen/ yang oliva purpo ses only. ) Not Available [facility] [place] [facility] [address] [place], [address], 12/22/2023 10:53:19 01/06/20 24 01/06/2024 rapid strep group A, throa t Strep negati ve Not Available [facility] [address], [place], [address], 01/06/2024 13:13:50 01/15/20 24 01/26/2024 QNATA L(R) ADVAN GREGORIO number of fetuses? 1 Not Available [facility] [place] [facility] [address], [place], [address], 01/26/2024 01:26:17 01/15/20 24 01/26/2024 QNATA L(R) ADVAN GREGORIO advanced maternal age? NOT GIVEN Not Available [facility] [place] [facility] [address] [place], [address], 01/26/2024 01:26:17 01/15/20 24 01/26/2024 QNATA L(R) ADVAN GREGORIO abnormal meliton? NOT GIVEN Not Available [facility] [place] [facility] [address] [place], [address], 01/26/2024 01:26:17 01/15/20 24 01/26/2024 QNATA L(R) ADVAN GREGORIO abnormal US? NOT GIVEN Not Available [facility] [place] [facility] [address] [place], [address], 01/26/2024 01:26:17 01/15/20 24 01/26/2024 QNATA L(R) ADVAN GREGORIO personal/fam history? NOT GIVEN Not Available [facility] [place] [facility] [address] [place], [address], 01/26/2024 01:26:17 01/15/20 24 01/26/2024 QNATA L(R) ADVAN GREGORIO interpretati on SEE NOTE This speci men showe d an expec sathish repre senta tion of chrom osome 21, 18, and 13 mater ial. See Elias rivera below . 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) Negati ve Not Available [facility] [place] [facility] [address] [facility], [place], [address], 01/26/2024 01:26:17 01/15/20 24 01/26/2024 QNATA L(R) ADVAN GREGORIO trisomy 13 (T13) Negati ve Not Available [facility] [place] [facility] [address] [facility], [place], [address], 01/26/2024 01:26:17 01/15/20 24 01/26/2024 QNATA L(R) ADVAN GREGORIO Y chromosome Not detect ed Not Available [facility] [place] [facility] [address] [facility], [place], [address], 01/26/2024 01:26:17 01/15/20 24 01/26/2024 QNATA L(R) ADVAN GREGORIO Y chr. interpretati on SEE NOTE Consi stent with a femal e fetus . Not Available [facility] [place] [facility] [address] [facility], [place], [address], 01/26/2024 01:26:17 01/15/20 24 01/26/2024 QNATA L(R) ADVAN GREGORIO sex chromosome No aneupl oidy Not Available [facility] [place] [facility] [address] [facility] [place], [address], 01/26/2024 01:26:17 01/15/20 24 01/26/2024 QNATA L(R) ADVAN GREGORIO sex chromosome interp SEE NOTE No appar ent abnor malit y was detec sathish. See Limi tatio ns below . Not Available [facility] [place] [facility] [address] [facility] [place], [address], 01/26/2024 01:26:17 01/15/20 24 01/26/2024 QNATA L(R) ADVAN GREGORIO microdeletio n Not detect ed Not Available [facility] [place] [facility] [address] [facility] [place], [address], 01/26/2024 01:26:17 01/15/20 24 01/26/2024 QNATA L(R) ADVAN GREGORIO microdeletio n interp SEE NOTE No appar ent abnor malit y was detec sathish. See Limi tatio ns below . Not Available [facility] [address] [place], [address], 01/26/2024 01:26:17 01/15/20 24 01/26/2024 QNATA L(R) ADVAN GREGORIO gestational age(in weeks) 10 Not Available [facility] [place] [facility] [address] [facility] [place], [address], 01/26/2024 01:26:17 01/15/20 24 01/26/2024 QNATA L(R) ADVAN GREGORIO gestational age (in days) 3 Not Available [facility] [place] [facility] [address] [place], [address], 01/26/2024 01:26:17 01/15/20 24 01/26/2024 QNATA L(R) ADVAN GREGORIO fraction 9.49% Not Available [facility] [place] [facility] [address] [place], [address], 01/26/2024 01:26:17 01/15/20 24 01/26/2024 QNATA L(R) ADVAN GREGORIO laboratory comments SEE NOTE A porti on of the testi ng was perfo rmed at [facility] . Labor atory resul ts and submi tted clini farhan infor matio n revie wed by Tomi Lozano, Ph.D. , [facility] , [facility]. Not Available [facility] [place] [facility] [address] [place], [address], 01/26/2024 01:26:17 01/15/20 24 01/26/2024 QNATA L(R) [...] scree [place] resul ts may be affec asthish by the prese nce of chrom osome abnor malit ies or micro delet ions that are mater nal or confi clifford place ntal in origi n. Not Available [facility] [place] [facility] [address] [facility], [place], [address], 01/26/2024 01:26:17 01/15/20 24 01/26/2024 QNATA L(R) [...] sment . Not Available [facility] [place] [facility] [address] [facility], [place], [address], 01/26/2024 01:26:17 01/15/2001/26/2024 QNATA L(R) ADVAN GREGORIO [...] senta tion of seque nces from the [facility] ns invol goldie in 1p36 micro delet [...] by FDA. Not Available [facility] [place] [facility] [address] [facility], [place], [address], 01/26/2024 01:26:17 01/15/20 24 01/26/2024 CHLAM YDIA/ N.RO ORRHO EAE AND T. VAGIN ADILSON RNA, QL TMA chlamydia trachomatis RNA, tma, urogenital NOT DETECT ED not detect ed normal Not Available [facility] [place] [facility] [address] [facility], [place], [address], 01/26/2024 01:26:18 01/15/20 24 01/26/2024 CHLAM YDIA/ N.RO ORRHO EAE AND T. VAGIN ADILSON RNA, QL TMA neisseria gonorrhoeae RNA, tma, urogenital NOT DETECT ED not detect ed normal Not Available [facility] [place] [facility] [address] [facility], [place], [address], 01/26/2024 01:26:18 01/15/20 24 01/26/2024 CHLAM YDIA/ [...] refer to https ://ed ucati on.qu estdi iProcure tics. com/f aq/FA Q154 (This link is being provi ded for infor martell shah/ educa domi l purpo ses only. ) Not Available [facility] [place] [facility] [address] [facility], [place], [address], 01/26/2024 01:26:18 01/15/20 24 01/26/2024 CHLAM YDIA/ N.RO ORRHO EAE AND T. VAGIN ADILSON RNA, QL TMA trichomonas vaginalis RNA, ql tma NOT DETECT ED not detect ed normal For addit ional infor cliff up refer to http: //[facility] emily shah.que stdia gnost ics.c om/ faq/T katie reynolds tma (This link is being provi ded for infor martell shen/ educa domi l purpo ses only. ) Not Available [facility] [place] [facility] [address] [facility], [place], [address], 01/26/2024 01:26:18 01/15/20 24 01/26/2024 DRUG MONIT ORING , PANEL 8 WITH CONFI RMATI ON, URINE alcohol metabolites NEGATI VE NG/mL <500 normal Not Available [facility] [place] [facility] [address] [place], [address], 01/26/2024 01:26:18 01/15/20 24 01/26/2024 DRUG MONIT ORING , PANEL 8 WITH CONFI RMATI ON, URINE amphetamines NEGATI VE NG/mL <500 normal Not Available [facility] [place] [facility] [address] [facility], [place], [address], 01/26/2024 01:26:18 01/15/20 24 01/26/2024 DRUG MONIT ORING , PANEL 8 WITH CONFI RMATI ON, URINE benzodiazepi bony NEGATI VE NG/mL <100 normal Not Available [facility] [place] [facility] [address] [facility], [place], [address], 01/26/2024 01:26:18 01/15/20 24 01/26/2024 DRUG MONIT ORING , PANEL 8 WITH CONFI RMATI ON, URINE buprenorphin e NEGATI VE NG/mL <5 normal Not Available [facility] [place] [facility] [address] [place], [address], 01/26/2024 01:26:18 01/15/20 24 01/26/2024 DRUG MONIT ORING , PANEL 8 WITH CONFI RMATI ON, URINE cocaine metabolite NEGATI VE NG/mL <150 normal Not Available [facility] [place] [facility] [address] [place], [address], 01/26/2024 01:26:18 01/15/20 24 01/26/2024 DRUG MONIT ORING , PANEL 8 WITH CONFI RMATI ON, URINE 6 acetylmorphi ne NEGATI VE NG/mL <10 normal Not Available [facility] [address] [place], [address], 01/26/2024 01:26:18 01/15/20 24 01/26/2024 DRUG MONIT ORING , PANEL 8 WITH CONFI RMATI ON, URINE marijuana metabolite NEGATI VE NG/mL <20 normal Not Available [facility] [address] [place], [address], 01/26/2024 01:26:18 01/15/20 24 01/26/2024 DRUG MONIT ORING , PANEL 8 WITH CONFI RMATI ON, URINE MDMA NEGATI VE NG/mL <500 normal Not Available [facility] [address] [facility] [place], [address], 01/26/2024 01:26:18 01/15/20 24 01/26/2024 DRUG MONIT ORING , PANEL 8 WITH CONFI RMATI ON, URINE opiates NEGATI VE NG/mL <100 normal Not Available [facility] [address] [facility] [place], [address], 01/26/2024 01:26:18 01/15/20 24 01/26/2024 DRUG MONIT ORING , PANEL 8 WITH CONFI RMATI ON, URINE oxycodone NEGATI VE NG/mL <100 normal Not Available [facility] [place] [facility] [address] [place], [address], 01/26/2024 01:26:18 01/15/20 24 01/26/2024 DRUG MONIT ORING , PANEL 8 WITH CONFI RMATI ON, URINE creatinine 89.6 mg/dL > or = 20.0 normal Not Available [facility] [place] [facility] [address] [facility] [place], [address], 01/26/2024 01:26:18 01/15/20 24 01/26/2024 DRUG MONIT ORING , PANEL 8 WITH CONFI RMATI ON, URINE pH 8.4 4.5-9. 0 normal Not Available [facility] [address] [place], [address], 01/26/2024 01:26:18 01/15/20 24 01/26/2024 DRUG MONIT ORING , PANEL 8 WITH CONFI RMATI ON, URINE oxidant NEGATI VE mcg/m L <200 normal Not Available [facility] [place] [facility] [address] [place], [address], 01/26/2024 01:26:18 01/15/20 24 01/26/2024 DRUG MONIT [...] 10pm EST Not Available [facility] [address] [place], [address], 01/26/2024 01:26:19 01/15/20 24 01/26/2024 CULTU RE, URINE , ROUTI NE culture, urine, routine SEE NOTE CULTU RE, URINE , ROUTI NE Micro Numbe r: [id number] Test Statu s: Final Speci men Sourc e: Urine Speci men Quali ty: Adequ ate Resul t: No Growt h Not Available [facility] [address] [place], [address], 01/26/2024 01:26:19 01/15/20 24 01/15/2024 urina lysis , dipst ick Leukocytes Modera te Not Available [address], [address], 01/15/2024 16:55:16 01/15/20 24 01/15/2024 urina lysis , dipst ick Nitrite negati ve Not Available [address], [address], 01/15/2024 16:55:16 01/15/20 24 01/15/2024 urina lysis , dipst ick Urobilinogen .2 Not Available [address], [address], 01/15/2024 16:55:16 01/15/20 24 01/15/2024 urina lysis , dipst ick Protein Negati ve Not Available [address], [address], 01/15/2024 16:55:16 01/15/20 24 01/15/2024 urina lysis , dipst ick pH 6.0 Not Available [address], [address], 01/15/2024 16:55:16 01/15/20 24 01/15/2024 urina lysis , dipst ick Blood Negati ve Not Available [address], [address], 01/15/2024 16:55:16 01/15/20 24 01/15/2024 urina lysis , dipst ick Specific [place] 1.020 Not Available [address], [address], 01/15/2024 16:55:16 01/15/20 24 01/15/2024 urina lysis , dipst ick Ketone Negati ve Not Available [address], [address], 01/15/2024 16:55:16 01/15/20 24 01/15/2024 urina lysis , dipst ick Bilirubin Negati ve Not Available [address], [address], 01/15/2024 16:55:16 01/15/20 24 01/15/2024 urina lysis , dipst ick Glucose Negati ve Not Available [address], [address], 01/15/2024 16:55:16 12/11/19 24 12/11/2023 US, obste tric, trans vagin al No observ ation record ed. [email or web address] Amanda [address], [place], [address], 12/14/2023 10:33:57 12/18/1912/18/2023 US, obste tric, trans vagin al No observ ation record ed. [email or web address] [facility] [address] [place] [place], [address], 12/23/2023 15:48:00 12/18/19 US, obste tric No observ ation record ed. [email or web address] [facility] [address] [place], [address], 12/18/2023 11:51:05 Result Notes None recorded. 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 3 15:13:40 Pityrias is versicol or 67620881 Active 2022 Rhonda Watkins APRN [address] [place] [address], [address], [employer] 3 15:59:21 Depressi ve disorder 49879581 Active 2022 Rhonda Watkins APRN [address] [place] [address], [address], [employer] 3 15:59:36 Overacti ve urinary bladder 108706419 Active 2022 Rhonda Watkins APRN [address] [place] [address], [address] 8, [employer] 3 15:59:50 Mixed urinary incontin ence 283945205 Active 2022 Rhonda Watkins APRN [address] [place] [address], [address] 8, [employer] 3 16:01:47 Acute pharyngi tis 448925395 Active 2022 Rhondacorey Watkins APRN [address] [place] [address], [address], [employer] 3 17:50:47 Missed period 29824276 Active 2022 Rhonda Watkins APRN [address] [place] [address], [address], [employer] 3 13:04:58 Nausea and vomiting 30639739 Active 2022 Rhonda Watkins APRN [address] [place] [address], [address], [employer] 3 13:41:40 Constipa tion 94146054 Active 2022 Rhonda Watkins APRN [address] [place] [address], [address] 8, [employer] 3 13:41:44 Pelvic and perineal pain 407442156 Active 2022 Rhonda Watkins APRN [address] [place] [address], [address] 8, [employer] 3 17:12:13 Genital herpes simplex 13155300 Active 2022 Rhonda Watkins APRN [address] [place] [address], [address] 8, [employer] 3 17:12:40 Abdomina l pain 40203500 Active 2022 Rhonda Watkins APRN [address] [place] [address], [address] 8, [employer] 3 09:38:02 Streptoc occal sore throat 13777278 Active [address], [address], [employer] 3 08:58:06 Vaginal irritati on 018349567 Active 2023 Rhonda Watkins APRN [address] [place] [address], [address] 8, [employer] 4 12:47:40 Pregnanc y 26943847 Completed 202308/30/2024 ESTELLE ONOFRE maxine, [employer] 5 14:48:36 Tachycar brannon 0424022 Active 2023 On metoprolo l 12.5mg QD Francy Corey, DO [address] [place] [address], [address] 8, [employer] 4 14:10:47 Tachycar brannon 0185171 Completed 2023 On metoprolo l 12.5mg QD Francydaniel Nicole DO [address] [place] [address], [address] 8, [employer] 4 14:10:47 Sore throat 244467322 Active 2023 NEHEMIAH Sims [address] [place] [address], [address] 8, [employer] 4 14:33:22 Gestatio n period, 9 weeks 110765 Active 2023 NEHEMIAH Sims [address] [place] [address], [address], [employer] 4 14:33:29 Problem Notes None recorded. Procedures Surgical History Date Name Laterality Status Provider Name and Address Organization Details Recorded Time 12/11/19 Date of Last Pap Smear completed Francy Evans [employer] 10/20/2023 13:29:10 Tonsillectomy completed TELLO [email or web address] 12/10/2022 14:43:50 hand repair completed BORIS JANE [employer] 07/23/2023 08:28:12 Dilation and Curettage completed TELLO EMMETT [employer] 12/09/2023 10:10:06 Imaging Results None recorded. Procedure Notes None recorded. Medical Equipment None Reported. Allergies Allergen ID Allergen Name Allergen Category Reaction Reaction Severity Criticality Documentation Date Start Date Code Code System Note Provider Name and Address Organization Details Recorded Time 15289 Product containin g penicilli n (product) medicatio n Not available Not available Not available 12/10/2022 51558 8001 SNOMED TELLOPlayrific SHERMAN [facility]. 3 14:48:49 84938 Augmentin medicatio n Not available Not available Not available 12/10/2022 90239 2 RxNorm [employer]. 3 14:48:54 Medications Name Sig Start Date [...] Updated DateTime 12/11/2023 167.64 cm TELLO SHERMAN [employer] 12/11/2023 16:30:09 Date Recorded Body weight Provider Name an d Address Organization Details Last Updated DateTime 12/16/2023 87392.327757 g Francy Nicole DO [address] [place] [address], [address], [employer] 12/22/2023 12:17:21 Date Recorded Body height Body mass index (BMI) Systolic And Diastolic Provider Name and Address Organization Details Last Updated DateTime 12/16/2023 167.64 cm 22.2 kg/m2 110/70 mm[Hg] Mychal Parnell [employer] 12/16/2023 09:55:12 Date Recorded Body weight Provider Name an d Address Organization Details Last Updated DateTime 12/18/2023 71771.16819 g Geno BREWSTER [facility] [place], [address], [employer] 12/18/2023 11:47:26 Date Recorded Body height Body mass index (BMI) Provider Name and Address Organization Details Last Updated DateTime 12/18/2023 167.64 cm 22.1 kg/m2 TELLO SHERMAN [employer] 12/18/2023 11:43:41 Date Recorded Body height Body mass index (BMI) Body weight Oxygen saturation Oxygen saturation in Arterial blood by Pulse oximetry Heart rate Body temperature Systolic And Diastolic Provider Name and Address Organization Details Last Updated DateTime 167.64 cm 22.3 kg/m2 43350.7 5 g 98 % 98 % 81 /min 98.3 [degF] 113/73 mm[Hg] Shani oBwser [employer]. 13:12:47 Date Recorded Body height Provider Name an d Address Organization Details Last Updated DateTime 01/15/2024 167.64 cm Mychal Parnell [facility] [employer] [facility] 01/15/2024 16:54:15 Date Recorded Body weight Systolic And Diastolic Provider Name and Address Organization Details Last Updated DateTime 01/15/2024 21616.46521 g 112/62 mm[Hg] Ean Cruz [employer] 01/15/2024 16:59:36 Social History Question Answer Notes LastModified by Organizat ion Details LastModified Time Tobacco Smoking Status Former Smoker BORIS goodman, [employer]. 07/23/2023 08:27:54 What Is Your Level Of [...] Or The Highest Degree You Have Received? GP77325-8 Information not available 12/10/2022 Who Is Your Employer? [employer] Information not available 12/10/2022 Have There [...] What Is Your Current Pack Years? 10packyears [email or web address] Information not available 07/23/2023 Have You Ever [...] Has Tobacco Cessation Counseling Been Provided? Yes [email or web address] Information not available 10/20/2023 On What Date [...] used smokeless tobacco? Never used smokeless tobacco Information not available 07/23/2023 Are you currently employed? Yes Information not available 12/10/2022 Do you have transportation difficulties? No Information not available 12/10/2022 Are you able to walk? YESWOREST Information not available 12/10/2022 Do you have difficulty doing errands alone? No Information not available 12/10/2022 What is your occupation? [employer] Information not available 12/10/2022 Do you [...] IPV 2 completed TELLO CHRISTINE SHERMAN null, [employer] 12/10/2022 14:42:16 MMR 2 completed TELLO CHRISTINE SHERMAN null, [employer] 12/10/2022 14:42:16 COVID-19 vaccine, vector-nr, rS-Ad26, PF, 0.5 mL 1 completed TELLO CHRISTINE SHERMAN null, [employer] 12/10/2022 14:42:16 Tdap 0 completed TELLO CHRISTINE SHERMAN null, [employer] 12/10/2022 14:42:16 varicella 1 completed TELLO CHRISTINE SHERMAN null, [employer] 12/10/2022 14:42:16 HPV, quadrivalent 1 completed TELLO CHRISTINE SHERMAN null, [employer] 12/10/2022 14:42:16 Hep A, ped/adol, 2 dose 1 completed TELLO CHRISTINE SHERMAN null, [employer] 12/10/2022 14:42:16 Hep A, ped/adol, 2 dose 0 completed TELLO CHRISTINE SHERMAN null, [employer] 12/10/2022 14:42:16 DTaP, unspecified formulation 2 completed TELLO CHIRSTINE SHERMAN null, [employer] 12/10/2022 14:42:16 Influenza, split virus, quadrivalent, PF 3 completed Francydaniel goodman [employer] 09/22/2023 12:41:20 Past Encounters Encounter ID Performer Location Encounter Start Date Encounter Closed Date Diagnosis/Indication Diagnosis SNOMED-CT Code Diagnosis ICD10 Code Diagnosis Note [id number] Rhonda Watkins [facility] [address] [employer] [facility] [place] [address] 12/10/2022 14:38:30 12/10/2022 16:46:26 Pityriasis versicolor 14414426 B36.0 Depressive disorder 3548 9007 F32.A Overactive urinary bladder 325273422 N32.81 Mixed urin glenn incontinence 416717800 N39.46 Screening for malignant neoplasm of cervix 687095026 Z12.4 [id number] Rhonda Watkins [facility] [address] [employer] [facility] [place] [address] 01/16/2023 14:12:44 01/16/2023 15:00:55 Vaginal irritation 031189700 N89.8 Acute pharyngitis 592880 003 J02.9 [id number] Rhonda Watkins [facility] [address] [employer] [facility] [place] [address] 02/04/2023 07:51:37 02/05/2023 10:48:21 Pelvic and perineal pain 157522708 R10.2 Genital he rpes simplex 05763043 A60.9 [id number] Yolette Sotelo [address] [address] 04/18/2023 10:23:36 04/18/2023 11:55:33 Acute pharyngitis 232943594 J02.9 Influenza caused by Influenza A virus 815639285 J09.X2 off work until until Thursday [id number] Bharati Tong [address] [address] 04/21/2023 08:50:39 04/21/2023 09:56:48 Missed period 22219294 N92.5 Influenza caused by Influenza A virus 910834820 J09.X2 [id number] BG CATALAN, [address] [place] [address] 07/23/2023 08:09:18 07/23/2023 09:21:43 Viral screening 572396465 Z11.59 Streptococ farhan sore throat 95802179 J02.0 [id number] Rhonda Watkins [facility] [address] [place] [address] 09/22/2023 12:09:54 09/22/2023 13:01:44 Vaginal irritation 023487571 N89.8 [id number] [facility] [address] [place] [address] 10/20/2023 13:11:29 10/20/2023 15:12:45 Vaginal irritation 164359181 N89.8 [id number] TAMIA WILL MD [facility] [address] [place] [address] 12/09/2023 09:32:48 12/09/2023 10:44:16 Missed period 31386367 N92.5 Intrauteri ne 40712123 Z34.90 [id number] TAMIA WILL MD [facility] [address] [place] [address] 12/11/2023 16:01:47 12/11/2023 16:33:10 [id number] Francy Nicole DO [facility] [address] [place] [address] 12/16/2023 09:48:15 12/16/2023 16:56:35 17196770 Z33.1 Dating US scheduled in 2 days Tachycardia 6171499 R00. 0 Prescribed metoprolol 25mg QD, has been taking 12.5 [id number] TAMIA WILL MD [facility] [address] [place] [address] 12/18/2023 10:55:41 12/18/2023 11:59:42 Intrauterine 35862546 Z34.90 [id number] Jocelyn Lynnley, TRANSPORT RN [facility] [address] [place] [address] 01/06/2024 12:33:43 01/06/2024 15:00:47 Sore throat 359315807 J02.9 Acute pharyngitis 211450 003 J02.9 Gestation period, 9 weeks 720362 Z3A.09 Normal weight 15182521 Z 68.22 [id number] Francy Nicole, [facility] [address] [facility] [address] 01/15/2024 16:31:36 01/15/2024 17:20:47 79055602 Z33.1 Health Concerns Section Related Observation LastModified by Organization Detai ls LastModified Time None Recorded Concern Status LastModified by Organization Details LastModified Time None Recorded Advance Directives Directive None Recorded Payers Insurance Date Sequence Insurance Name Policy Number Policy Zaidi Covered Member ID Zaidi Member ID Guarantor Name 06/13/2024 1 [facility] (MEDICAID HMO) [facility] [id number] [facility] 06/01/2023 1 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 [facility] 12/16/2023 SLIDING FEE SCHEDULE - DISCOUNT [facility] 12/16/2023 1 *SELF PAY* [facility] 12/16/2023 SLIDING FEE SCHEDULE - DISCOUNT [facility] 03/07/2024 2 *SELF PAY* [facility] 12/16/2023 [place] [facility] [id number] [facility] Notes Date Note Type Note Provider Name [...] She is given warnings. TAMIA WILL MD [address] [place] [address], [address], [employer] 12/11/2023 16:35:43 12/16/2023 text/html This is a [...] in two days. Francy Nicole DO [address] [place], [address], [employer] 12/22/2023 12:21:03 01/06/2024 text/html Sore ThroatRepor [...] neck; no muffled voice;cough NEHEMIAH Sims [address] [place], [address], [employer] 01/06/2024 14:37:51 01/15/2024 text/html This is [...] results for her Halter monitor from her tailer in next week. Francy Nicole, DO [address] [place] [address], [address], [facility] [employer] 01/16/2024 14:11:27 OBGyn Episode Ob Episode Information Episode Created Date Number of Fetuses Patient Bloodtype Patient rh Status Prepregnancy Weight lbs Domestic Partner Domestic Partner Phone Father Name Industrial Maintenance Repairer Helper Status 12/11/19 1 CLOSED Fetus Data First [...] Domestic Partner Domestic Partner Phone Father Name Industrial Maintenance Repairer Helper Status 12/11/19 23 1 CLOSED Fetus Data [...] Domestic Partner Domestic Partner Phone Father Name Industrial Maintenance Repairer Helper Status 12/18/19 24 1 CLOSED Fetus Data First Name Last Name Admitted to NICU Weight (g) Sex Living Outcome Pediatric Complications Fetus ID Race Codes Race Delivery Type 2489.94 [id number] F true Full Term 8847 2106-3 White Problems Problem Notes Problem Name Start Date End Date Resolution Snomed Code Not e Tachycardia 12/22/2023 5840284 On meto prolol 12.5mg QD Cole Calculation Initial Cole Date Initial Exam Date Initial Exam Provider Initial Ultrasound Date Last Menstrual Period Date Ultra Sound Weeks Gestation 08/09/2023 12/18/2023 [email or web address] 12/18/2023 11/03/2023 6 Eighteen To Twenty Week Cole Update Ultra Sound Date Fundal Height At Umbil Quickening Date Ultra Sound Latest Weeks Gestation Final Cole Confirmed By Final Cole Confirmed Date Final Cole Date Ultra Sound Latest Days Gestation 0 [email or web address] 12/18/2023 08/09/19 25 0 Pre-jazzy Flowsheet Flowsheet Date 12/16/2023 Zepeda Score Blood Edema Fundus Height Fundus Units Glucose Ketones Leukocytes Nitrite Labor Signs Protein Cervic Dilation Cervic Effacement Cervic Station Type Weight in lbs Pre/Post Dialysis Refused With clothes 137.427459685792 BP Diastolic BP Location Tested BP Systolic [...] in lbs Pre/Post Dialysis Refused With clothes 137.216032806288 BP Diastolic BP Location Tested BP Systolic BP Type sitting Fetus Heart Rate Present Fetus Movement Comments Scan 6.3 week CRL. Labs toda y, 4 weeks Flowsheet Date 01/06/2024 Zepeda Score Blood Edema Fundus Height Fundus Units Glucose Ketones Leukocytes Nitrite Labor Signs Protein Cervic Dilation Cervic Effacement Cervic Station Type Weight in lbs Pre/Post Dialysis Refused With clothes 138.165186024254 BP Diastolic BP Location Tested BP Systolic BP Type 73 R arm 113 sitting Fetus Heart Rate Present Fetus Movement Comments Flowsheet Date 01/15/2024 Zepeda Score Blood Edema Fundus Height Fundus Units Glucose Ketones Leukocytes Nitrite Labor Signs Protein Cervic Dilation Cervic Effacement Cervic Station none neg Type Weight in lbs Pre/Post Dialysis Refused With clothes 136.919881414783 BP Diastolic BP Location Tested BP Systolic [...]
--- OUTSIDE RECORDS SUMMARY | 2025-02-08 08:19 | XMS_ITS | Encounter Summary ---
Author Organization Healthcare Address [address] [place] [address] Care Team Providers Care Framing Mill Operator Helper Name Role Phone Angela Oleary RN Unavailable Unavailable Rey Wyatt MD Primary Care Provider [phone] Encounter Details Date Type Department Care Team [...] week 02/22/2024 How often do you attend [facility] or syn[facility] services? Never 02/22/2024 Do you [...] Recorded Patient Health Questionnaire-2 Score 0 12/15/2024 [facility] - Occupational [...] in a m[facility] (including now)? No 02/09/2024 [place] Depression Scale Answer Date Recorded [place] Depression Scale Total 6 08/08/2024 The thought [...] drink first t casi in the morning (EYE-ANGIOGRAPHY TECHNOLOGIST) to steady your nerves or to get rid of a hangover? 0 07/16/2024 CAGE Questionnaire Score 0 024 Utilities Answer Date Recorded In the past 12 months has th e Brandicted, gas, oil, or water company threatened to [...] Description 02/16/2025 1:20 PM EDT Office Visit [facility] [place] [address], [address] [place] [address] Courtney Torres MD [address] [place] [address] 03/15/2025 3:30 PM EDT Consult [facility] [address] [place] [address] Kendy Sanchez, GAMING CAGE WORKER [address] [place] [address] 04/17/2025 2:00 PM EDT Office Visit [facility] [address] [place] [address] Silverio Tam, PA [address] [place] [address] documented as of this encounter [...] documented as of this encounter Care Teams Framing Mill Operator Helper Relationship Specialty Start Date End Date Rey Wyatt MD [address] [facility] [address] [place], [place] [id number] PCP - General 11/16/24 Angela Oleary, RN [facility] Registered Nurse Cardiology 02/17/24 documented as of this encounter
--- OUTSIDE RECORDS SUMMARY | 2025-02-08 08:19 | XMS_ITS | Clinical Summary ---
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 30 mL 12 04/12/20 24 Active Additional Information Patient not taking.Reported on 01/17/2025 Blood Glucose Monitoring Suppl (OneTouch Verio Reflect) w/Device kit 04/14/20 24 Active OneTouch Verio test strip 1 each by Other route if needed. 04/14/20 Active Lancets (OneTouch Delica Plus [id number]) [facility] 04/14/20 Active ibuprofen 600 MG tablet Take 1 tablet (600 mg) by mouth every 6 (six) hours if needed for mild pain. 30 tablet 1 07/18/20 Active Additional Information Patient not taking.Reported on 01/17/2025 senna-docusate (Codi-Colace) 8.6-50 MG tablet Take 1 tablet by mouth 1 (one) time each day. 30 tablet 1 07/18/20 Active Additional Information Patient not taking.Reported on 01/17/2025 acetaminophen (Tylenol) 325 MG capsule Take 2 capsules (650 mg) by mouth every 6 (six) hours if needed for mild pain. 30 capsule 1 07/18/20 Active Additional Information Patient not taking.Reported on 12/15/2024 ondansetron (Zofran) 4 MG tablet Take 1 tablet (4 mg) by mouth every 8 (eight) hours if needed for nausea or vomiting. 3 tablet 5 07/18/20 Active Additional Information Patient not taking.Reported on 01/17/2025 busPIRone (Buspar) 5 MG tablet Take 1 tablet (5 mg) by mouth every night. Takes at 8PM 30 tablet 08/16/19 25 Active famotidine (Pepcid) 20 MG tablet Take 1 tablet (20 mg) by mouth 2 (two) times a day. 60 tablet 11 08/16/19 25 Active cholecalciferol (Vitamin D-3) 50 MCG (2000 UT) capsule 10/26/19 25 Active Ventolin HFA 108 (90 Base) MCG/ACT inhaler 10/06/19 25 Active methIMAzole (Tapazole) 10 MG tablet Take 1 tablet by mouth daily. 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 30 tablet 3 11/17/19 25 Active cefdinir (Omnicef) 300 MG capsule take one capsule by mouth every twelve hours for 10 days 12/09/19 25 Active fluticasone (Flonase) 50 MCG/ACT nasal spray Administer 1 spray into each nostril daily. 12/09/19 25 Active ondansetron ODT (Zofran-ODT) 4 MG disintegrating tablet Dissolve 2 tablets on the tongue every 8 hours as needed for nausea or vomiting. 20 tablet 5 12/31/19 25 Active predniSONE (Deltasone) 10 MG tablet Take 4 tablets by mouth daily for 5 days, THEN 3 tablets daily for 5 days, THEN 2 tablets daily for 5 days, THEN 1 tablet daily for 5 days, THEN 0.5 tablets daily for 5 days. 53 tablet 12/17/19 25 025 Hospital, Clinic, or Other Facility Administered Medication [...] Department Care Team Description 01/18/2025 Results Follow-Up [facility] Endocrinology [address] [place] [address] Robyn Kylea 01/17/2025 6:36 AM EDT - 01/17/2025 11:59 PM EDT Hospital Encounter [facility] [address] [place] [address] Cody Barnett MD Abdominal pain, epigastric; Diarrhea, unspecified type; Weight loss; Hematochezia Discharge Disposition: Home or Self Care 01/17/2025 Travel 12/30/2024 Orders Only [facility] [address] [place] [address] Silverio Tam PA 12/28/2024 Orders Only [facility] [address] [place] [address] Silverio Tam PA Abdominal pain, epigastric (Primary Dx); Diarrhea, unspecified type; Weight loss; Hematochezia 12/28/2024 Results Follow-Up [facility] [address], [address] [place] [address] Estuardo Jon MD 12/28/2024 Orders Only [facility] [address], [address] [place] [address] Keya Minor RN Diarrhea, unspecified type 12/20/2024 Results Follow-Up [facility] [address] [place] [address] Silverio Tam PA 12/16/2024 Results Follow-Up [facility] Endocrinology [address] [place] [address] Abundio Kyle 12/15/2024 2:30 PM EDT Office Visit [facility] [address] [place] [address] Silverio Tam PA Weight loss (Primary Dx); Abdominal pain, epigastric; Diarrhea, unspecified type; Postural orthostatic tachycardia syndrome (POTS); Hematochezia; Elevated fecal calprotectin; Urticaria; History of anesthesia reaction; Gastroesophageal reflux disease, unspecified whether esophagitis present; Gilbert's syndrome; Nausea and vomiting, unspecified vomiting type; BMI 23.0-23.9, adult 12/15/2024 Travel 12/09/2024 Orders Only [facility] [address] [place] [address] Silverio Tam PA 12/08/2024 Travel 12/07/2024 7:03 AM EDT - 12/07/2024 11:59 PM EDT Hospital Encounter [facility] [address] 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 Travel 11/16/2024 [facility]phone [facility] [address] [place] [address] Kendy Sanchez APRN 11/14/2024 Orders Only [facility] Endocrinology [address] [place] [phone] Abundio Kyle Thyrotoxicosis with Tricia thyroiditis (Primary Dx) 11/13/2024 Travel 11/11/2024 8:40 AM EDT Office Visit [facility] [address] [place] [phone] (1), Roland Wooten Fellow Abundio Kyle Thyrotoxicosis with Tricia thyroiditis (Primary Dx); Hyperthyroidism [...] Tristan cradang Crohn's disease Brother 1 Tristan fagan Immunodeficiency Brother 1 Tristan fagan Liver disease Brother 2 Scott Asthma Child Heart attack Father Sahil reynoso Heart failure Father Sahil reynoso Hypertension Father Sahil reynoso Stroke Father Sahil reynoso Cancer Maternal Grandmother Melania sheridan Abnormal EKG Mother Avril fagan Autoimmune disease Mother Crystal cradang Clotting disorder Mother Crystal craft Depression Mother Crystal craft Immunodeficiency Mother Crystal craft Thyroid disease Mother Crystal craft Thyroid disease Mother's Sister Ashanti Anesthesia problems Neg Hx Malig Hyperthermia Neg Hx Relation Name Status Comments Brother 1 Tristan ganft Brother 2 Scott Alive Child Alive [...] How often do you attend chur or alevism services? Never 02/22/2024 Do you [...] Recorded Patient Health Questionnaire-2 Score 0 12/15/2024 [facility] [place] [facility] Occupat ional Health - Occupational Stress [...] in a correction (including now)? No 02/09/2024 Stratford Depression Scale Answer Date Recorded Stratford Depression Scale Total 6 08/08/2024 The thought [...] drink first t casi in the morning (EYE-ADMINISTRATIVE RESIDENT) to steady your nerves or to get rid of a hangover? 0 07/16/2024 CAGE Questionnaire Score 0 024 Utilities Answer Date Recorded In the past 12 months has e electric, gas, oil, or water company [...] Description 02/16/2025 1:20 PM EDT Office Visit [facility] [place] [address], [address] [place] [address] Courtney Torres MD [address] [place] [address] 03/15/2025 3:30 PM EDT Consult [facility] [address] [place] [address] Kendy Sanchez APRN [address] [place] [address] 04/17/2025 2:00 PM EDT Office Visit [facility] [address] [place] [address] Silverio Tam PA [address] [place] [address] Health Maintenance Due Date Last Done Comments [facility]-/Child/Adol SDOH Screenings 1998 [facility]-IPV Vaccines (2 of 3 - 4-dose series) 05/24/2002 04/26/2002 [facility]-Varicella Vaccines (2 of 2 - 2-dose childhood series) 05/24/2002 07/06/2001 HPV Vaccines (2 - 2-dose series) 11/27/2011 05/29/2011 [facility]-Hepatitis B Vaccines (1 of 3 - 19+ 3-dose series) 2017 [facility]-Pap Smear 2019 [facility]-DTaP,Tdap,and Td Vaccines (3 - Td or Tdap) 02/21/2020 02/20/2010, 04/26/2002 [id number] Vaccine (2 - 2023- season) 2024 02/21/2021 [facility]- SDOH Screenings 08/11/2024 [...] Routine 11/11/2024 10:20 AM EDT Thyrotoxicosis with Tircia thyroiditis HIV 1/2 ANTIBODY/ANTIGEN SCREEN WITH REFLEX [...] - 4.3 pg/mL 01/18/2025 11:56 PM EDT [facility] ([place]) Blood Venous blood specimen / Unknown Venipuncture / Unknown 01/17/2025 8:47 AM EDT 01/17/2025 8:47 AM EDT Narrative [facility] ([place]) - 01/18/2025 11:56 PM EDT REFERENCE INTERVAL: Triiodothyronine, Free (Free T3) Access complete set of age- and/or gender-specific reference intervals for this test in the [facility] Test Directory ([facility]). Performed By: [facility] [address] [place] [address] Vocational Examiner: Wilber Pardo MD, PhD CLIA Number: [id number] Saskia Garcia MD LAB BLOOD ORDERABLES Final Resul t Performing Organization Address [facility] Co de Phone Number [facility] Address[facility]) [address] [place] [address] * Thyroid Stimulating Hormone Receptor Antibody (01/17/2025 8:47 AM EDT) Pathologist [facility] Department TSH Receptor Antibody <1.10 <=1.75 IU/L 01/19/2025 1:20 AM EDT [facility] ([facility]) Serum Venous blood specimen / Unknown 01/17/2025 8:47 AM EDT 01/17/2025 8:47 AM EDT Narrative [facility] ([place]) - 01/19/2025 1:20 AM EDT Performed By: [facility] [address] [place] [address] Vocational Examiner: Wilber Pardo MD, PhD CLIA Number: [id number] Saskia Garcia MD LAB BLOOD ORDERABLES Final Resul t Performing Organization Address City/[facility]/ZIP Co de Phone Number [facility]) [address] [place] [address] * Thyroid stimulating immunoglobulin (01/17/2025 8:47 AM EDT) TSI Result 0.11 <=0.54 IU/L 01/19/2025 12:49 AM EDT [facility]) Serum Venous blood specimen / Unknown 01/17/2025 8:47 AM EDT 01/17/2025 8:47 AM EDT Narrative [facility]) - 01/19/2025 12:49 AM EDT INTERPRETIVE INFORMATION: [...] medical history, and other findings. Performed By: [facility] [address] [id number] Vocational Examiner: Wilber Pardo MD, PhD CLIA Number: [id number] us Saskia Garcia MD LAB BLOOD ORDERABLES Final Resul t [facility]) [address] [place] [address] * TSH (01/17/2025 8:47 AM EDT) Only the most recent of4 resultswithin the time period is included. Pathologist [facility] Emergency Department Thyroid Stimulating Hormone, Plasma 1.83 0.40 - 4.20 uIU/mL 01/17/2025 11:38 AM EDT [facility] Blood Venous blood specimen / Unknown Venipuncture / Unknown 01/17/2025 8:47 AM EDT 01/17/2025 8:47 AM EDT [facility] - 01/17/2025 11:38 AM EDT Trimester Specific Ranges TSH ( IU/mL) 1st Trimester 0.1 - 3.0 2nd Trimester 0.19 - 4.06 3rd Trimester 0.3 - 3.7 Roland Wooten MD LAB BLOOD ORDERABLES Final Resu lt Performing Organization Address [facility] de Phone Number [facility] [address] [place] [address] * T4, free (01/17/2025 8:47 AM EDT) Only the most recent of4 resultswithin the time period is included. Free T4, Plasma 0.8 0.8 - 1.7 ng/dL 01/17/2025 11:38 AM EDT [facility] Blood Venous blood specimen / Unknown Venipuncture / Unknown 01/17/2025 8:47 AM EDT 01/17/2025 8:47 AM EDT Narrative [facility] - 01/17/2025 11:38 AM EDT Free T4 Trimester Specific Ranges 1st Trimester 0.9 - 1.50 ng/dL 2nd Trimester 0.7 - 1.40 ng/dL 3rd Trimester 0.7 - 1.24 ng/dL Roland Wooten MD LAB BLOOD ORDERABLES Final Resu lt Performing Organization Address [facility] de Phone Number [facility] [address] [place] [address] * XR Abdomen 1 View (12/28/2024 9:40 AM EDT) Anatomical Region Laterality Modality Body Digital Radiogra phy Estuardo Jon MD IMG XR PROCEDURES Final Result * Cytomegalovirus (CMV) Quantitative PCR (12/15/2024 3:29 PM EDT) [facility] Cytomegalovirus (CMV) Quantitative Interpretation Not Detected Not Detected 12/19/2024 2:26 PM EDT [facility] Blood Venous blood specimen / Unknown Venipuncture / Unknown 12/15/2024 3:29 PM EDT 12/15/2024 3:30 PM EDT Narrative [facility] - 12/19/2024 2:26 PM EDT The Wold[facility] M2000 CMV test is a Real Time [...] ORDERABLES Final Res ult Performing Organization Address [facility] [place] [address] * T3 (12/15/2024 3:29 PM EDT) Only the most recent of2 resultswithin the time period is included. [facility] T3, Serum 177 87 - 187 ng/dL 12/15/2024 4:54 PM EDT [facility] Blood Venous blood specimen / Unknown Venipuncture / Unknown 12/15/2024 3:29 PM EDT 12/15/2024 3:30 PM EDT [facility] LAB BLOOD ORDERABLES Final Res ult Performing Organization Address [facility] [place] [place] [address] * Brayan-Holguin virus VCA, IgM (12/15/2024 3:29 PM EDT) [facility] EBV ANTIBODY TO VIRAL CAPSID ANTIGEN IGM <10.0 0.0 - 43.9 U/mL 12/18/2024 11:09 AM EDT [employer] Blood Venous blood specimen / Unknown Venipuncture / Unknown 12/15/2024 3:29 PM EDT 12/15/2024 3:30 PM EDT Narrative [facility] ([facility]) - 12/18/2024 11:09 AM EDT INTERPRETIVE INFORMATION: Brayan-Holguin Virus Antibody to Viral Capsid Antigen, IgM 35.9 U/mL or less.......Not Detected 36.0-43.9 U/mL..........Indeterminate - Repeat testing in 10-14 days may be helpful. 44.0 U/mL or greater....Detected Performed By: [facility] [address] [place] [address] Vocational Examiner: Wilber Pardo MD, PhD CLIA Number: [id number] [facility] LAB BLOOD ORDERABLES Final Res ult Performing Organization Address City/[facility]/ZIP Co de Phone Number [facility] [address]) [address] [place] [address] * (ABNORMAL) Brayan Holguin IgG Ab (12/15/2024 3:29 PM EDT) [facility] EBV ANTIBODY TO VIRAL CAPSID ANTIGEN IGG 185.0(H) 0.0 - 21.9 U/mL 12/18/2024 11:11 AM EDT [facility] ([place]) Blood Venous blood specimen / Unknown Venipuncture / Unknown 12/15/2024 3:29 PM EDT 12/15/2024 3:30 PM EDT Narrative [facility] AddressReport[facility]) - 12/18/2024 11:11 AM EDT INTERPRETIVE INFORMATION: Brayan-Holguin Virus Antibody to Viral Capsid Antigen, IgG 17.9 U/mL or less.......Not Detected 18.0-21.9 U/mL..........Indeterminate - Repeat testing in 10-14 days may be helpful. 22.0 U/mL or greater....Detected Performed By: [facility] [address] [place] [address] Vocational Examiner: Wilber Pardo MD, PhD CLIA Number: [id number] [facility] LAB BLOOD ORDERABLES Final Res ult Performing Organization Address City/[facility]/ZIP Co de Phone Number [facility] [address]) [address] [place] [address] * Prothrombin Time/INR (12/15/2024 3:29 PM EDT) Prothrombin Time 13.7 12.0 - 14.3 sec LAB COAGULATION METHOD 12/15/2024 5:05 PM EDT [facility] INR 1.0 0.9 - 1.1 LAB COAGULATION METHOD 12/15/2024 5:05 PM EDT [facility] Blood Venous blood specimen / Unknown Venipuncture / Unknown 12/15/2024 3:29 PM EDT 12/15/2024 3:30 PM EDT Narrative [facility] - 12/15/2024 5:05 PM EDT OPTIMAL INR RANGES FOR PATIENT ON ORAL ANTICOAGULANT THERAPY Prevention of venous thromboembolism INR 2.0 to 3.0 In patients with heart disease: Atrial fibrillation INR 2.0 to 3.0 Valvular heart disease INR 2.0 to 3.0 Tissue heart valves INR 2.0 to 3.0 Mechanical prosthetic valves INR 2.5 to 3.5 Prevention of recurrent HI INR 2.5 to 3.5 us [facility] LAB BLOOD ORDERABLES Final Res ult [facility] [address] [place] [address] * (ABNORMAL) CBC and Differential (12/15/2024 3:29 PM EDT) Pathologist [facility] WBC Count 5.38 3.70 - 10.30 10*3/uL LAB HEMATOLOGY METHOD 12/15/2024 4:38 PM EDT [facility] RBC Count 4.81 3.90 - 5.20 10*6/uL LAB HEMATOLOGY METHOD 12/15/2024 4:38 PM EDT [facility] HGB 12.6 11.2 - 15.7 g/dL LAB HEMATOLOGY METHOD 12/15/2024 4:38 PM EDT [facility] HCT 39.7 34.0 - 45.0 % LAB HEMATOLOGY METHOD 12/15/2024 4:38 PM EDT [facility] Platelet Count 311 155 - 369 10*3/uL LAB HEMATOLOGY METHOD 12/15/2024 4:38 PM EDT [facility] MCV 83 79 - 98 fL LAB HEMATOLOGY METHOD 12/15/2024 4:38 PM EDT [facility] MCH 26.2 26.0 - 32.0 pg LAB HEMATOLOGY METHOD 12/15/2024 4:38 PM EDT [facility] MCHC 31.7 30.7 - 35.5 g/dL LAB HEMATOLOGY METHOD 12/15/2024 4:38 PM EDT [facility] RDW 12.2 11.5 - 14.5 % LAB HEMATOLOGY METHOD 12/15/2024 4:38 PM EDT [facility] MPV 11.2 8.8 - 12.5 fL LAB HEMATOLOGY METHOD 12/15/2024 4:38 PM EDT [facility] nRBC 0.0 <=0.0 per 100 WBCs LAB HEMATOLOGY METHOD 12/15/2024 4:38 PM EDT [facility] Differential Type Automated LAB HEMATOLOGY METHOD 12/15/2024 4:38 PM EDT [facility] Neutrophils % 61 % LAB HEMATOLOGY METHOD 12/15/2024 4:38 PM EDT [facility] Lymphocytes % 32 % LAB HEMATOLOGY METHOD 12/15/2024 4:38 PM EDT [facility] Monocytes % 5 % LAB HEMATOLOGY METHOD 12/15/2024 4:38 PM EDT [facility] Eosinophils % 1 % LAB HEMATOLOGY METHOD 12/15/2024 4:38 PM EDT [facility] Basophils % 1 % LAB HEMATOLOGY METHOD 12/15/2024 4:38 PM EDT [facility] Immature Granulocytes % 0 % LAB HEMATOLOGY METHOD 12/15/2024 4:38 PM EDT [facility] Neutrophils Absolute 3.33 1.60 - 6.10 10*3/uL LAB HEMATOLOGY METHOD 12/15/2024 4:38 PM EDT [facility] Lymphocytes Absolute 1.70 1.20 - 3.90 10*3/uL LAB HEMATOLOGY METHOD 12/15/2024 4:38 PM EDT [facility] Monocytes Absolute 0.25(L) 0.30 - 0.90 10*3/uL LAB HEMATOLOGY METHOD 12/15/2024 4:38 PM EDT [facility] Eosinophils Absolute 0.03 0.00 - 0.50 10*3/uL LAB HEMATOLOGY METHOD 12/15/2024 4:38 PM EDT [facility] Basophils Absolute 0.05 0.00 - 0.10 10*3/uL LAB HEMATOLOGY METHOD 12/15/2024 4:38 PM EDT [facility] Immature Granulocytes Absolute 0.02 0.00 - 0.06 10*3/uL LAB HEMATOLOGY METHOD 12/15/2024 4:38 PM EDT [facility] Blood Venous blood specimen / Unknown Venipuncture / Unknown 12/15/2024 3:29 PM EDT 12/15/2024 3:30 PM EDT Narrative [facility] - 12/15/2024 4:38 PM EDT Therapeutic decision making should be based on absolute values, rather than percentages. us [facility] LAB BLOOD ORDERABLES Final Res ult [facility] [address] [place] [address] * (ABNORMAL) Comprehensive Metabolic Panel, Plasma (12/15/2024 3:29 PM EDT) Only the most recent of2 resultswithin the time period is included. Glucose, Plasma 84 74 - 99 mg/dL 12/15/2024 4:54 PM EDT [facility] BUN, Plasma 8 7 - 21 mg/dL 12/15/2024 4:54 PM EDT [facility] Creatinine, Plasma 0.60 0.60 - 1.10 mg/dL 12/15/2024 4:54 PM EDT [facility] BUN/Creatinine Ratio 13 12/15/2024 4:54 PM EDT [facility] Sodium, Plasma 140 136 - 145 mmol/L 12/15/2024 4:54 PM EDT [facility] Potassium, Plasma 4.1 3.6 - 4.9 mmol/L 12/15/2024 4:54 PM EDT [facility] Chloride, Plasma 105 97 - 107 mmol/L 12/15/2024 4:54 PM EDT [facility] CO2, Plasma 21(L) 22 - 29 mmol/L 12/15/2024 4:54 PM EDT [facility] Anion Gap 14 6 - 16 mmol/L 12/15/2024 4:54 PM EDT [facility] Total Calcium, Plasma 9.4 8.9 - 10.2 mg/dL 12/15/2024 4:54 PM EDT [facility] Total Protein 8.1(H) 6.3 - 7.9 g/dL 12/15/2024 4:54 PM EDT [facility] Albumin, Plasma 4.6 3.5 - 5.2 g/dL 12/15/2024 4:54 PM EDT [facility] AST, Plasma 16 10 - 35 U/L 12/15/2024 4:54 PM EDT [facility] ALT, Plasma 23 10 - 35 U/L 12/15/2024 4:54 PM EDT [facility] Alkaline Phosphatase, Plasma 58 35 - 104 U/L 12/15/2024 4:54 PM EDT [facility] Total Bilirubin, Plasma 0.7 0.2 - 1.1 mg/dL 12/15/2024 4:54 PM EDT [facility] eGFRcr 127.1 mL/min/1.7 3m*2 12/15/2024 4:54 PM EDT [facility] Comment:Reported eGFRcr in m L/min/1.73m2 is based the CKD-EPI 2020 equation that does not use a race coefficient. Blood Venous blood specimen / Unknown Venipuncture / Unknown 12/15/2024 3:29 PM EDT 12/15/2024 3:30 PM EDT [facility] LAB BLOOD ORDERABLES Final Res ult [facility] [address] [place] [address] * Patency Capsule (12/07/2024 7:03 AM EDT) [...] <6 <14 ng/L 11/20/2024 9:47 PM EDT [facility] Blood Venous blood specimen / Unknown Venipuncture / Unknown 11/20/2024 9:17 PM EDT 11/20/2024 9:20 PM EDT us Shani Shankar DO LAB BLOOD ORDERABLES Final Re sult [facility] [address] [place] [address] * CBC (11/20/2024 9:17 PM EDT) WBC Count 4.69 3.70 - 10.30 10*3/uL LAB HEMATOLOGY METHOD 11/20/2024 9:23 PM EDT [facility] RBC Count 4.26 3.90 - 5.20 10*6/uL LAB HEMATOLOGY METHOD 11/20/2024 9:23 PM EDT [facility] HGB 11.8 11.2 - 15.7 g/dL LAB HEMATOLOGY METHOD 11/20/2024 9:23 PM EDT [facility] HCT 35.8 34.0 - 45.0 % LAB HEMATOLOGY METHOD 11/20/2024 9:23 PM EDT [facility] Platelet Count 197 155 - 369 10*3/uL LAB HEMATOLOGY METHOD 11/20/2024 9:23 PM EDT [facility] MCV 84 79 - 98 fL LAB HEMATOLOGY METHOD 11/20/2024 9:23 PM EDT [facility] MCH 27.7 26.0 - 32.0 pg LAB HEMATOLOGY METHOD 11/20/2024 9:23 PM EDT [facility] MCHC 33.0 30.7 - 35.5 g/dL LAB HEMATOLOGY METHOD 11/20/2024 9:23 PM EDT [facility] RDW 12.5 11.5 - 14.5 % LAB HEMATOLOGY METHOD 11/20/2024 9:23 PM EDT [facility] MPV 11.6 8.8 - 12.5 fL LAB HEMATOLOGY METHOD 11/20/2024 9:23 PM EDT [facility] nRBC 0.0 <=0.0 per 100 WBCs LAB HEMATOLOGY METHOD 11/20/2024 9:23 PM EDT [facility] Blood Venous blood specimen / Unknown Venipuncture / Unknown 11/20/2024 9:17 PM EDT 11/20/2024 9:20 PM EDT us Shani Shankar DO LAB BLOOD ORDERABLES Final Re sult [facility] [address] [place] [address] * hCG qualitative (11/20/2024 9:17 PM EDT) Test Negative Negative 11/20/2024 10:02 PM EDT [facility] Blood Venous blood specimen / Unknown Venipuncture / Unknown 11/20/2024 9:17 PM EDT 11/20/2024 9:20 PM EDT Narrative [facility] - 11/20/2024 10:02 PM EDT Reference Range: Males and non- females: Negative. [employer] DO LAB BLOOD ORDERABLES Final Re sult [facility] [address] [place] [address] * Phosphorus (11/20/2024 9:17 PM EDT) Phosphorus, Plasma 3.5 2.5 - 4.5 mg/dL 11/20/2024 10:02 PM EDT [facility] Blood Venous blood specimen / Unknown Venipuncture / Unknown 11/20/2024 9:17 PM EDT 11/20/2024 9:20 PM EDT [facility] LAB BLOOD ORDERABLES Final Re sult Performing Organization Address [facility]/ZIP Co de Phone Number [facility] [address] [place] [address] * Magnesium (11/20/2024 9:17 PM EDT) Magnesium, Plasma 2.1 1.9 - 2.4 mg/dL 11/20/2024 10:02 PM EDT [facility] Blood Venous blood specimen / Unknown Venipuncture / Unknown 11/20/2024 9:17 PM EDT 11/20/2024 9:20 PM EDT [employer] DO LAB BLOOD ORDERABLES Final Re sult Performing Organization Address City/[facility]/ZIP Co de Phone Number [facility] [address] [place] [address] * (ABNORMAL) Blood gas panel, venous (11/20/2024 9:17 PM EDT) [facility] pH, Venous 7.38 7.32 - 7.43 LAB HEMATOLOGY METHOD 11/20/2024 9:21 PM EDT [facility] pCO2, Venous 44 37 - 52 mmHg LAB HEMATOLOGY METHOD 11/20/2024 9:21 PM EDT [facility] pO2, Venous 26 25 - 40 mmHg LAB HEMATOLOGY METHOD 11/20/2024 9:21 PM EDT [facility] SO2, Measured, Venous 44(L) 65 - 80 % LAB HEMATOLOGY METHOD 11/20/2024 9:21 PM EDT [facility] Base Excess, Venous 0.2 -2.0 - 3.0 mmol/L LAB HEMATOLOGY METHOD 11/20/2024 9:21 PM EDT [facility] Bicarbonate, Calculated, Venous 26 22 - 26 mmol/L LAB HEMATOLOGY METHOD 11/20/2024 9:21 PM EDT [facility] Hematocrit, Whole Blood 37.4 34.0 - 45.0 % LAB HEMATOLOGY METHOD 11/20/2024 9:21 PM EDT [facility] Sodium, Whole Blood 141 136 - 145 mmol/L LAB HEMATOLOGY METHOD 11/20/2024 9:21 PM EDT [facility] Potassium, Whole Blood 4.0 3.6 - 4.9 mmol/L LAB HEMATOLOGY METHOD 11/20/2024 9:21 PM EDT [facility] Chloride, Whole Blood 110(H) 97 - 107 mmol/L LAB HEMATOLOGY METHOD 11/20/2024 9:21 PM EDT [facility] Glucose, Whole Blood 98 74 - 99 mg/dL LAB HEMATOLOGY METHOD 11/20/2024 9:21 PM EDT [facility] Lactate, Venous, Whole Blood 1.0 0.5 - 2.2 mmol/L LAB HEMATOLOGY METHOD 11/20/2024 9:21 PM EDT [facility] Ionized Calcium, Whole Blood 4.8 4.6 - 5.1 mg/dL LAB HEMATOLOGY METHOD 11/20/2024 9:21 PM EDT [facility] Blood Venous blood specimen / Unknown Venipuncture / Unknown 11/20/2024 9:17 PM EDT 11/20/2024 9:20 PM EDT us Shaniluna Shankar DO LAB BLOOD ORDERABLES Final Re sult [facility] [address] [place] [address] * EKG now - STAT (adult) (11/20/2024 8:52 PM EDT) [facility] EKG DIAGNOSIS CLASS Abnormal MUSE ECG Ventricular Rate 83 BPM MUSE ECG Atrial Rate 83 BPM MUSE ECG NV Interval 128 ms MUSE ECG QRSD Interval 72 ms MUSE ECG QT Interval 342 ms MUSE ECG QTC Interval 401 ms MUSE ECG P [place] 60 degrees MUSE ECG R [place] 62 degrees MUSE ECG T Wave [place] 21 degrees MUSE ECG Diagnosis Sinus rhythm [...] Final Resu lt Performing Organization Address City/[facility]/ZIP Co de Phone Number MUSE ECG * HIV 1 & 2 Antibody/Antigen Screen (04/18/2024 10:13 AM EDT) [facility] HIV 1 & 2 Antibody/Antigen Screen Non Reactive Non Reactive 04/18/2024 12:07 PM EDT [facility] Comment:Screening for HIV 1 & 2 antibodies, and P24 antigen is NONREACTIVE. No confirmatory testing is required. Blood Venous blood specimen / Unknown Venipuncture / Unknown 04/18/2024 10:13 AM EDT 04/18/2024 10:13 AM EDT Shalonda Davies APRN LAB BLOOD ORDERABLES Susannah pj Result [facility] [address] [place] [address] * Hepatitis C Antibody - ED (02/07/2024 10:11 PM EDT) Hepatitis C Antibody Negative Negative 02/07/2024 11:11 PM EDT [facility] Blood Venous blood specimen / Unknown Venipuncture / Unknown 02/07/2024 10:11 PM EDT 02/07/2024 10:18 PM EDT us Mark Roger MD LAB BLOOD ORDERABLES Final Resu lt [facility] [address] [place] [phone] from Last 3 Months or Most Recently Relevant to Health Maintenance Additional Health Concerns Active Problems Noted Date Diagnosed Date CPM S22 PP LABOR (OBSTETRICS) 02/24/2024 Insurance [place] Advance Directives * Full Code (Latest Code [...] Patient has decision-making capacity? Yes Care Teams Athletic Coach Relationship Specialty Start Date End Date Rey Wyatt MD [address] [facility] [address] [place] [address] PCP - General 11/16/24 Angela Oleary, RN [facility] Registered Nurse Cardiology 02/17/24
--- OUTSIDE RECORDS SUMMARY | 2025-02-08 08:19 | XMS_ITS | Encounter Summary ---
Author Organization [facility] Address [address] [place] [address] Care Team Providers Care Timber Incisor Operator Name Role Phone Angela Oleary RN Unavailable Unavailable Rey Wyatt MD Primary Care Provider Reason for Referral * Imaging (Routine) - Closed Specialty Diagnoses / Procedures Referred By Mili joe Referred To Contact Gastroenterology Diagnoses Abdominal pain, epigastric Diarrhea, unspecified type Weight loss Hematochezia Procedures Capsule Endoscopy Silverio Tam PA [address] [facility] [address] [place] [address] Phone: tel: fax: Referral ID Status Reason Start Date Expiration Date V isits Requested Visits Authorized [id number] Closed Specialty Services Required 12/28/2024 06/29/2026 1 1 Encounter Details Date Type Department Care Team (Late st Contact Info) Description 12/28/2024 Orders Only [facility] Medicine Specialties [address], [address] [place] [address] Silverio Tam PA [address] [facility] [address] [place] [address] Abdominal pain, epigastric (Primary Dx); [...] often do you attend chur ch or jain services? Never 02/22/2024 Do you belong to any clubs o r organizations such as adventist groups, unions, fraternal or athletic groups, or [...] Patient Health Questionnaire-2 Score 0 12/15/2024 [facility] Occupat ional [facility] - [...] in a assisted (including now)? No 02/09/2024 [place] Depression Scale Answer Date Recorded [place] Depression Scale Total 6 08/08/2024 The thought [...] drink first t casi in the morning (EYE-DRYING TUMBLER OPERATOR) to steady your nerves or to get rid of a hangover? 0 07/16/2024 CAGE Questionnaire Score 0 024 Utilities Answer Date Recorded In the past 12 months has th e [employer], gas, oil, or water [employer] threatened to shut off services in your home? No 02/09/2024 Comments No Sex and Gender Information Value Date Recorded Sex Assigned at Not on file Legal Sex Female 7:36 PM EDT Gender Identity Not on file Sexual Orientation Not on file documented as of this encounter Plan of Treatment Upcoming Encounters Date Type Department Care Team ([facility] st Contact Info) Description 02/16/2025 1:20 PM EDT Office Visit [facility] [place] [address], [address] [place] [address] Courtney Torres MD [address] [place] [address] 03/15/2025 3:30 PM EDT Consult [facility] [address], [address] [place] [address] Kendy Sanchez APRN [address] [place] [address] 04/17/2025 2:00 PM EDT Office Visit [facility] Medicine Specialties [address], [address] [place] [address] Silverio Tam PA [address] [place] [address] documented as of this encounter [...] as of this encounter Care Teams Timber Incisor Operator Relationship Specialty Start Date End Date Rey Wyatt MD [address] [facility] [address] [place] [address] PCP - General 11/16/24 Angela Oleary, RN [facility] Registered Nurse Cardiology 02/17/24 documented as of this encounter
--- OUTSIDE RECORDS SUMMARY | 2025-02-08 08:19 | XMS_ITS | Encounter Summary ---
Author Organization Healthcare Address [address] [place] [address] Care Team Providers Care Supervisor Mold Yard Name Role Phone Angela Oleary RN Unavailable Unavailable Rey Wyatt MD Primary Care Provider Encounter Details Date Type Department Care Team (Late st Contact Info) Description 12/28/2024 Results Follow-Up [facility] Medicine Specialties [address] [place] [address] Estuardo Jon MD [address] [place] [address] Social History Tobacco Use Types [...] often do you attend chur ch or roman catholic services? Never 02/22/2024 Do [...] Recorded Patient Health Questionnaire-2 Score 0 12/15/2024 [facility] - Occupational Stress Questionnaire [...] in a fdc (including now)? No 02/09/2024 [place] Depression Scale Answer Date Recorded [place] Depression Scale Total 6 08/08/2024 The thought [...] drink first t casi in the morning (EYE-CHURCH ADMINISTRATOR) to steady your nerves or to get [...] Description 02/16/2025 1:20 PM EDT Office Visit [facility] [place] [address], [address] [place] [address] Courtney Torres MD [address] [place] [address] 03/15/2025 3:30 PM EDT Consult [facility] [address], [address] [place] [address] Kendy Sanchez APRN [address] [place] [address] 04/17/2025 2:00 PM EDT Office Visit [facility] Medicine Specialties [address], [address] [place] [address] Silverio Tam PA [address] [place] [address] documented as of this encounter [...] as of this encounter Care Teams Supervisor [place] Yard Relationship Specialty Start Date End Date Rey Wyatt MD [address] [place], [place] [id number] PCP - General 11/16/24 Angela Oleary, RN [facility] Registered Nurse Cardiology 02/17/24 documented as of this encounter
--- OUTSIDE RECORDS SUMMARY | 2025-02-08 08:19 | XMS_ITS | Encounter Summary ---
Author Organization Healthcare Address [address] [place] [address] Care Team Providers Care Bat Lathe Operator Name Role Phone Angela Oleary RN Unavailable Unavailable Rey Wyatt MD Primary Care Provider [phone] Encounter Details Date Type Department Care Team (Late st Contact Info) Description 12/09/2024 Orders Only [facility] Medicine Specialties [address], [address] [place] [address] Silverio Tam PA [address] [place] [address] Social History Tobacco Use Types [...] Patient Health Questionnaire-2 Score 0 11/16/2024 [facility] - Occupational Stress [...] a senior living (including now)? No 02/09/2024 [place] Depression Scale Answer Date Recorded [place] Depression Scale Total 6 08/08/2024 The thought [...] drink first t casi in the morning (EYE-DEBT MANAGEMENT COUNSELOR) to steady your nerves or to get rid of a hangover? 0 07/16/2024 CAGE Questionnaire Score 0 024 Utilities Answer Date Recorded In the past 12 months has th e [employer], gas, oil, or water company threatened to [...] Description 02/16/2025 1:20 PM EDT Office Visit [facility] [place] [facility] [address], [address] [place] [address] Courtney Torres MD [address] [place] [address] 03/15/2025 3:30 PM EDT Consult [facility] [address] [place] [address] Kendy Sanchez APRN [address] [place] [address] 04/17/2025 2:00 PM EDT Office Visit [facility] Medicine Specialties [address], [address] [place] [address] Silverio Tam PA [address] [place] [address] documented as of this encounter [...] documented as of this encounter Care Teams Bat Lathe Operator Relationship Specialty Start Date End Date Rey Wyatt MD [address] [facility] [address] [place] [address] PCP - General 11/16/24 Angela Oleary, RN [facility] Registered Nurse Cardiology 02/17/24 documented as of this encounter
--- OUTSIDE RECORDS SUMMARY | 2025-02-08 08:19 | XMS_ITS | Encounter Summary ---
Author Organization Healthcare Address [address] [place] [address] Care Team Providers Care Computer Forensics Technician Name Role Phone Angela Oleary RN Unavailable Unavailable Rey Wyatt MD Primary Care Provider [phone] Encounter Details Date Type Department Care Team (Late st Contact Info) Description 12/30/2024 Orders Only [facility] Medicine Specialties [address], [address] [place] [address] Silverio Tam PA [address] [place] [address] Social History Tobacco Use Types [...] often do you attend chur ch or buddhism services? Never 02/22/2024 Do you belong to [...] Recorded Patient Health Questionnaire-2 Score 0 12/15/2024 [facility] - Occupational Stress [...] in a mcc (including now)? No 02/09/2024 [place] Depression Scale Answer Date Recorded [place] Depression Scale Total 6 08/08/2024 The thought [...] drink first t casi in the morning (EYE-TRUCKLOAD CHECKER) to steady your nerves or to get rid of a hangover? 0 07/16/2024 CAGE Questionnaire Score 0 024 Utilities Answer Date Recorded In the past 12 months has th e [employer], gas, oil, or water company threatened to [...] Description 02/16/2025 1:20 PM EDT Office Visit [facility] [place] [address] [facility] [place] [address] Courtney Torres MD [address] [place] [address] 03/15/2025 3:30 PM EDT Consult [facility] [address], 1[address] [place] [address] Kendy Sanchez APRN [address] [place] [address] 04/17/2025 2:00 PM EDT Office Visit [facility] Medicine Specialties [address] [place] [address] Silverio Tam PA [address] [place] [address] documented as of this encounter [...] as of this encounter Care Teams Computer Forensics Technician Relationship Specialty Start Date End Date Rey Wyatt MD [address] [facility] [address] [place] [address] PCP - General 11/16/24 Angela Oleary, RN [facility] Registered Nurse Cardiology 02/17/24 documented as of this encounter
--- OUTSIDE RECORDS SUMMARY | 2025-02-08 08:19 | XMS_ITS | Encounter Summary ---
Author Organization Healthcare Address [address] [place] [id number] Care Team Providers Care Legal Counsel Name Role Phone Angela Oleary RN Unavailable Unavailable Rey Wyatt MD Primary Care Provider [phone] Encounter Details Date Type Department Care Team (Late st Contact Info) Description 12/16/2024 Results Follow-[facility] [address] [place] [address] Munug[facility]ohitha [address] [place] [id number] Social History Tobacco Use Types Packs/Day Years [...] often do you attend chur ch or pentecostal services? Never 02/22/2024 Do you belong to any clubs o r organizations such as moravian groups, unions, fraternal or athletic groups, or [...] [facility] of Occupat ional [facility] - Occupational Stress Questionnaire Answer [...] in a retirement (including now)? No 02/09/2024 [place] Depression Scale Answer Date Recorded [place] Depression Scale Total 6 08/08/2024 The thought [...] drink first t casi in the morning (EYE-TITLE I INSTRUCTIONAL ASSISTANT) to steady your nerves or to [...] Description 02/16/2025 1:20 PM EDT Office Visit [facility] [place] [address], [address] [place] [address] Courtney Torres MD [address] [place] [address] 03/15/2025 3:30 PM EDT Consult [facility] [address], [address] [place] [address] Kendy Sanchez APRN [address] [place] [address] 04/17/2025 2:00 PM EDT Office Visit [facility] Medicine Specialties [address], [address] [place] [address] Silverio Tam PA [address] [place] [address] documented as of this encounter Goals Goal Patient Goal Type Associated Problems Recent Progress Patient-Stated? Author Delayed Delivery Care Plan CPM S22 PP LABOR (OBSTETRICS) No Open Scheduling, Background documented as of this encounter Results * T4, free (01/17/2025 8:47 AM EDT) Free T4, Plasma 0.8 0.8 - 1.7 ng/dL 01/17/2025 11:38 AM EDT [facility] [...] ORDERABLES Final Resu lt Performing Organization Address [facility] Co de Phone Number [facility]ARE [facility] [address] [place] [address] * TSH (01/17/2025 8:47 AM EDT) Thyroid [...] ORDERABLES Final Resu lt Performing Organization Address [facility] de Phone Number [facility] [address] [place] [address] documented in this encounter Visit Diagnoses Diagnosis [...] as of this encounter Care Teams Legal Counsel Relationship Specialty Start Date End Date Rey Wyatt MD [address] [place] [address] [place] [address] PCP - General 11/16/24 Angela Oleary, RN [facility] Registered Nurse Cardiology 02/17/24 documented as of this encounter
--- OUTSIDE RECORDS SUMMARY | 2025-02-08 08:19 | XMS_ITS | Encounter Summary ---
Author Organization Healthcare Address [address] [place] [address] Care Team Providers Care Power Shovel Operator Name Role Phone Angela Oleary RN Unavailable Unavailable Rey Wyatt MD Primary Care Provider [phone] Encounter Details Date Type Department Care Team (Late st Contact Info) Description 12/20/2024 Results Follow-Up [facility] Medicine Specialties [address], [address] [place] [address] Silverio Tam PA [address] [place] [address] Social History Tobacco Use Types [...] any clubs o r organizations such as episcopalian groups, unions, fraternal or athletic groups, or [...] Score 0 12/15/2024 [facility] - Occupational Stress [...] a nursing home (including now)? No 02/09/2024 [place] Depression Scale Answer Date Recorded [place] Depression Scale Total 6 08/08/2024 The [...] drink first t casi in the morning (EYE-PLAYGROUND WORKER) to steady your nerves or to [...] Description 02/16/2025 1:20 PM EDT Office Visit [facility] [place] [address], [address] [place] [address] Courtney Torres MD [address] [place] [address] 03/15/2025 3:30 PM EDT Consult [facility] [address], [address] [place] [address] Kendy Sanchez APRN [address] [place] [address] 04/17/2025 2:00 PM EDT Office Visit [facility] Medicine Specialties [address], [address] [place] [address] Silverio Tam PA [address] [place] [address] documented as of this encounter [...] documented as of this encounter Care Teams Power Shovel Operator Relationship Specialty Start Date End Date Rey Wyatt MD [address] [facility] [address] [place], [place] [id number] PCP - General 11/16/24 Angela Oleary, RN [facility] Registered Nurse Cardiology 02/17/24 documented as of this encounter
--- OUTSIDE RECORDS SUMMARY | 2025-02-08 08:19 | XMS_ITS | Encounter Summary ---
Author Organization Healthcare Address [address] [place] [address] Care Team Providers Care Field Operations Supervisor Name Role Phone Angela Oleary RN Unavailable Unavailable Rey Wyatt MD Primary Care Provider [phone] Encounter Details Date Type Department Care Team (Late st Contact Info) Description 12/28/2024 Orders Only [facility] Medicine Specialties [address] [place] [address] Keya Minor RN [facility] Diarrhea, [...] often do you attend chur ch or evangelical services? Never 02/22/2024 Do you [...] Recorded Patient Health Questionnaire-2 Score 0 12/15/2024 [facility] Occupat ional Health [...] in a jail (including now)? No 02/09/2024 [place] Depression Scale [...] drink first t casi in the morning (EYE-CIGAR HEAD PEGGER) to steady your nerves or to get [...] Description 02/16/2025 1:20 PM EDT Office Visit [facility] [place] [address], [address] [place] [address] Courtney Torres MD [address] [place] [address] 03/15/2025 3:30 PM EDT Consult [facility] [address], [address] [place] [address] Kendy Sanchez APRN [address] [place] [address] 04/17/2025 2:00 PM EDT Office Visit [facility] Medicine Specialties [address], [address] [place] [address] Silverio Tam PA [address] [place] [address] documented as of this encounter [...] documented as of this encounter Care Teams Field Operations Supervisor Relationship Specialty Start Date End Date Rey Wyatt MD [address] [facility] [address] [place] [address] PCP - General 11/16/24 Angela Oleary, RN [facility] Registered Nurse Cardiology 02/17/24 documented as of this encounter
--- OUTSIDE RECORDS SUMMARY | 2025-02-08 08:19 | XMS_ITS | Encounter Summary ---
Author Organization Healthcare Address [address] [place] [id number] Care Team Providers Care Phlebotomy Coordinator Name Role Phone Angela Oleary RN Unavailable Unavailable Rey Wyatt MD Primary Care Provider [phone] Encounter Details Date Type Department Care Team (Late st Contact Info) Description 01/18/2025 Results Follow-Up [facility] Endocrinology [address] [place] [address] MunugotiHugohitha [address] [place] [id number] Social History Tobacco Use Types Packs/Day Years [...] [facility] of Occupat ional [facility] - Occupational Stress Questionnaire Answer Date [...] a long term (including now)? No 02/09/2024 [place] Depression Scale Answer Date Recorded [place] Depression Scale Total 6 08/08/2024 The thought [...] first t casi in the morning (EYE-RETAIL GIFT CARD MERCHANDISING) to steady your nerves or to get [...] Description 02/16/2025 1:20 PM EDT Office Visit [facility] [place] [address], [address] [place] [address] Courtney Torres MD [address] [place] [address] 03/15/2025 3:30 PM EDT Consult [facility] [address] [place] [address] Kendy Sanchez APRN [address] [place] [address] 04/17/2025 2:00 PM EDT Office Visit [facility] Medicine Specialties [address], [address] [place] [address] Silverio Tam PA [address] [place] [address] Scheduled Orders Name Type Priority [...] documented as of this encounter Care Teams Phlebotomy Coordinator Relationship Specialty Start Date End Date Rey Wyatt MD [address] [facility] [address] [place] [address] PCP - General 11/16/24 Angela Oleary, RN [facility] Registered Nurse Cardiology 02/17/24 documented as of this encounter
--- OUTSIDE RECORDS SUMMARY | 2025-02-08 08:20 | XMS_ITS | Encounter Summary ---
Author Organization Healthcare Address [address] [place] [address] Care Team Providers Care Summer School Coordinator Name Role Phone Molly Louis MD Primary Care Provider [phone] Angela Oleary RN Unavailable Unavailable Rey Wyatt MD Primary Care Provider [phone] Reason for Visit * Reason Onset Date Comments Med Refill 07/19/2024 Encounter Details Date Type Department Care Team (Late st Contact Info) Description 07/19/2024 Refill [facility]ly [facility] [address], [address] [place] [address] Paris Marion MD [address] [place] [address] Social History Tobacco Use Types Packs/Day Years [...] How often do you attend chur or samaritan services? Never 02/22/2024 Do you [...] Recorded Patient Health Questionnaire-2 Score 0 06/22/2024 [facility] - Occupational Stress Questionnaire [...] in a fpc (including now)? No 02/09/2024 [place] Depression Scale Answer Date Recorded [place] Depression Scale Total 8 02/22/2024 The thought [...] drink first t casi in the morning (EYE-APRON TRIMMER) to steady your nerves or to [...] Description 02/16/2025 1:20 PM EDT Office Visit [facility] [place] [address], [address] [place] [address] Courtney Torres MD [address] [place] [address] 03/15/2025 3:30 PM EDT Consult [facility] [address], 1st [place] [address] Kendy Sanchez APRN [address] [place] [address] 04/17/2025 2:00 PM EDT Office Visit [facility] [address], 2nd [place] [address] Silverio Tam PA [address] [place] [address] documented as of this encounter [...] documented as of this encounter Care Teams Summer School Coordinator Relationship Specialty Start Date End Date Molly Louis MD [address] [place] [address] PCP - General Family Medicine 02/09/24 11/15/24 [place] [address] [place] [address] PCP - General 11/16/24 Angela Oleary, RN [facility] Registered Nurse Cardiology 02/17/24 documented as of this encounter
--- OUTSIDE RECORDS SUMMARY | 2025-02-08 08:20 | XMS_ITS | Encounter Summary ---
Author Organization Healthcare Address [address] [place] [address] Care Team Providers Care Agronomy Research Manager Name Role Phone Angela Oleary RN Unavailable Unavailable Rey Wyatt MD Primary Care Provider [phone] Encounter Details Date Type Department Care Team [...] 02/22/2024 How often do you attend [facility] or baptism services? Never 02/22/2024 Do you [...] Recorded Patient Health Questionnaire-2 Score 0 12/15/2024 [facility] - [...] in a assisted (including now)? No 02/09/2024 [place] Depression Scale Answer Date Recorded [place] Depression Scale Total 6 08/08/2024 The [...] drink first t casi in the morning (EYE-MORTISING MACHINE OPERATOR) to steady your nerves or [...] Description 02/16/2025 1:20 PM EDT Office Visit [facility] [place] [address] , [address] [place] [address] Courtney Torres MD [address] [place] [address] 03/15/2025 3:30 PM EDT Consult [facility] [address], 1[address] [place] [address] Kendy Sanchez, COMPUTER SYSTEMS DESIGNER [address] [place] [address] 04/17/2025 2:00 PM EDT Office Visit [facility] Special[facility] [address], [address] [place] [address] Silverio Tam PA [address] [place] [address] documented as of this encounter [...] documented as of this encounter Care Teams Agronomy Research Manager Relationship Specialty Start Date End Date Rey Wyatt MD [address] [place], [place] [id number] PCP - General 11/16/24 Angela Oleary, RN [facility] Registered Nurse Cardiology 02/17/24 documented as of this encounter
--- OUTSIDE RECORDS SUMMARY | 2025-02-08 08:20 | XMS_ITS | Encounter Summary ---
Author Organization [employer] ([place], [place], [place], [place]) Address [address] [place] [address] Care Team Providers Care Screen Tender Name Role Phone Molly Louis MD Primary Care Provider [phone] Encounter Details Date Type Department Care Team (Late st Contact Info) Description 04/14/2024 Outside Orders [facility] Admitting [address] [place] [address] Silverio Tam, PA [address] 2nd [place] [address] Blood in stool (Primary Dx) Social History [...] 87(H) <=49 ug/g 04/19/2024 11:26 PM EDT [facility] Comment: REFERENCE INTERVAL: Calprotectin, Fecal by Immunoassay Less than 50 ug/g.........Normal 50-120 ug/g...............Borderline elevated, test should be re-evaluated in 4-6 weeks. 121 ug/g or greater.......Elevated Performed By: [facility] [address] [place] [address] Sheet Music Salesperson: Wilber Pardo MD, PhD CLIA Number: [id number] Stool 04/14/2024 11:0 6 AM EDT 04/14/2024 11:47 AM EDT us [facility] - GENERAL ORDERAB LES Final Result [facility] [address] [place] [address], [facility] [phone] documented in this encounter Visit Diagnoses Diagnosis Blood in stool- Primary documented in this encounter Care Teams Screen Tender Relationship Specialty Start Date End Date Molly Louis MD [address] [place] [address] PCP - General 08/22/24 documented as of this encounter
--- OUTSIDE RECORDS SUMMARY | 2025-02-08 08:20 | XMS_ITS | Encounter Summary ---
Author Organization Healthcare Address [address] [place] [address] Care Team Providers Care Law Reporter Name Role Phone Pcp, No Primary Care Provider UnavailMolly Newman MD Primary Care Provider [phone] Angela Oleary RN Unavailable Unavailable Rey Wyatt MD Primary Care Provider [phone] Encounter Details Date Type Department Care Team (Late Contact Info) Description 01/22/2024 Orders Only External Location [address] [place] [address] Provider, External Social History Tobacco Use Types [...] Department Care Team (Late Contact Info) Description 02/16/2025 1:20 PM EDT Office Visit [facility] [place] [address], [address] [place] [address] Courtney Torres MD [address] [place] [address] 03/15/2025 3:30 PM EDT Consult [facility] [address], 1[address] [place] [address] Kendy Sanchez, TRISTAN [address] [place] [address] 04/17/2025 2:00 PM EDT Office Visit [facility] Medicine Specialties [address], 2[address] [place] [address] Silverio Tam PA [address] [place] [address] documented as of this encounter [...] documented as of this encounter Care Teams Law Reporter Relationship Specialty Start Date End Date Pcp, Maribel [address] [place] [address] PCP - General Family Medicine 01/22/24 02/08/24 Molly oLuis MD [address] [place] [address] PCP - General Family Medicine 02/09/24 11/15/24 Rey Wyatt MD [address] [facility] [address] [place] [address] PCP - General 11/16/24 Angela Oleary, RN [facility] Registered Nurse Cardiology 02/17/24 documented as of this encounter
--- OUTSIDE RECORDS SUMMARY | 2025-02-08 08:20 | XMS_ITS | Clinical Summary ---
Author Organization [employer] ([place], [place], [place], [place]) Address [address] [place] [address] Care Team Providers Care Principal Developer Name Role Phone Molly Louis MD Primary Care Provider [phone] Allergies Active Allergy Reactions Criticality Noted Date [...] Date Guerrero rded Speak language other than [place]guill[place] at home Not on file 08/13/2023 Want [...] (#1) 2025 Medical Devices Implanted Type Area Assistant Store Manager Operations Device Identifier Shelf Expiration Date Model / Serial / Lot K-Wire [id number] - [id number] Implanted:Qty: 1 on 08/04/2022 by Rex Rene MD at [facility] IMPLANTS Right: Hand ANNIA:[employer] [id number] / / Wire K-Wire 1.6mm [id number] Implanted:Qty: 1 on 08/04/2022 by Rex Rene MD at [facility] IMPLANTS Right: Hand AllergEase GRP:AllergEase TECH / / Insurance [facility] [place] Directives For more information, please contact: [phone] * Full Code (Latest Code Status on File) Date Activated Date Inactivated Comments 08/04/2022 6:03 AM 08/04/2022 11:35 AM Care Teams Principal Developer Relationship Specialty Start Date End Date Molly Louis MD [address] [place] [address] Drive [address] [place] [address] PCP - General 08/22/24
--- OUTSIDE RECORDS SUMMARY | 2025-02-08 08:20 | XMS_ITS | Referral Summary ---
Author Organization [employer] ([place], [place], [place], [place]) Address [address] [place] [address] Care Team Providers Care Publishing Agent Name Role Phone Molly Louis MD Primary [...] Date Guerrero rded Speak language other than Congolese at home Not on file 08/13/2023 Want [...] on file Medical Devices Implanted Type Area Farm Appraiser Device Identifier Shelf Expiration Date Model / Serial / Lot K-Wire [id number] - [id number] Implanted:Qty: 1 on 08/04/2022 by Rex Rene MD at [facility] IMPLANTS Right: Hand [employer]IA:[employer] [id number] / / Wire K-Wire 1.6mm [id number] - [id number] Implanted:Qty: 1 on 08/04/2022 by Rex Rene MD at [facility] IMPLANTS Right: Hand BUCK MED GRP:BUCK MED TECH 2 / / [place] [address] [address] [place] Directives For more information, please contact: [phone] * Full Code (Latest Code Status on File) Date Activated Date Inactivated Comments 08/04/2022 6:03 AM 08/04/2022 11:35 AM Care Teams Publishing Agent Relationship Specialty Start Date End Date Molly Louis MD [address] [place] [address] [address] [place] [address] PCP - General 08/22/24
--- OUTSIDE RECORDS SUMMARY | 2025-02-08 08:20 | XMS_ITS | Encounter Summary ---
Author Organization Healthcare Address [address] [id number] Care Team Providers Care Cytology Manager Name Role Phone Molly Louis MD Primary Care Provider Angela Oleary RN Unavailable Unavailable Rey Wyatt MD Primary Care Provider [phone] Reason for Visit * Reason Onset Date Comments Med Refill 03/03/2024 Encounter Details Date Type Department Care Team (Late st Contact Info) Description 03/03/2024 Refill [facility] [address] [place] [address] Paris Marion MD [address] [place] [address] Social History Tobacco Use Types Packs/Day Years [...] Recorded Patient Health Questionnaire-2 Score 0 02/17/2024 [facility] Occupat ional [facility] - Occupational Stress Questionnaire Answer [...] a care home (including now)? No 02/09/2024 [place] Depression Scale Answer Date Recorded [place] Depression Scale Total 8 02/22/2024 The thought [...] Upcoming Encounters Date Type Department Care Team ([facility] st Contact Info) Description 02/16/2025 1:20 PM EDT Office Visit [facility] [place] [address] [facility] [address] [facility] [address] [facility], [address] [place] [address] Courtney Torres MD [address] [facility] [address] [place] [address] 03/15/2025 3:30 PM EDT [facility] [address], 1st [place] [address] Kendy Sanchez APRN [address] [place] [address] 04/17/2025 2:00 PM EDT Office Visit [facility] Medicine Specialties [address], 2[address] [place] [address] Silverio Tam PA [address] [place] [address] documented as of this encounter [...] documented as of this encounter Care Teams Cytology Manager Relationship Specialty Start Date End Date Molly Louis MD [address] [place] [address] PCP - General Family Medicine 02/09/24 11/15/24 Rey Wyatt MD [address] [place] [address] PCP - General 11/16/24 Angela Oleary, RN [facility] Registered Nurse Cardiology 02/17/24 documented as of this encounter
--- OUTSIDE RECORDS SUMMARY | 2025-02-08 08:20 | XMS_ITS | Encounter Summary ---
Author Organization Healthcare Address [address] [place] [address] Care Team Providers Care Field Technical Support Consultant Name Role Phone Molly Louis MD Primary Care Provider [phone] Angela Oleary RN Unavailable Unavailable Rey Wyatt MD Primary Care Provider Reason for Visit * Reason Onset Date Comments Med Refill 03/03/2024 Encounter Details Date Type Department Care Team ([facility] Contact Info) Description 03/03/2024 Refill Medical Office Building Obstetrics and Gynecology [address] [facility] [place] [address] Indian HeadEarle Villagomez MD [address] [facility] [address] [place] [address] Supervision of high risk in [...] How often do you attend chur or restorationist services? Never 02/22/2024 Do you [...] Recorded Patient Health Questionnaire-2 Score 0 02/17/2024 [facility] ional Health - Occupational [...] in a detention (including now)? No 02/09/2024 [place] Depression Scale Answer Date Recorded [place] Depression Scale Total 8 02/22/2024 The thought [...] requesting to speak with a nurse- see [facility] for details about symptoms she is experiencing. * Telephone Encounter - Luh Keenan RN - 03/04/2024 1:56 PM EDT Patient has refills on file. Needs to call pharmacy. Luh Keenan, RN documented in this encounter Plan of Treatment Upcoming Encounters Date Type Department Care Team (Late st Contact Info) Description 02/16/2025 1:20 PM EDT Office Visit [facility] [place] [address], [address] [place] [address] Courtney Torres MD [address] [place] [address] 03/15/2025 3:30 PM EDT Consult [facility] [address], [address] [place] [address] Kendy Sanchez APRN [address] [place] [address] 04/17/2025 2:00 PM EDT Office Visit [facility] Special[facility] [address], 2[address] [place] [address] Silverio Tam PA [address] [place] [address] documented as of this encounter [...] 03/12/2024 7:24 PM EDT Respiratory Rule-Out 05/25/2024 05/25/202431/2 024 4:54 AM EDT Rhinovirus Comment:Patient no longer sick 05/25/2024 05/25/2024 11:39 AM EST Gastrointestinal Rule-Out 11/20/2024 11/20/2024 9:53 PM EDT Assessment Noted Time A fall risk assessment has been complete d for the patient 02/17/2024 12:08 PM EDT A Body Mass Index follow-up plan has been documented for the patient 02/24/2024 9:41 PM EDT documented as of this encounter Care Teams Field Technical Support Consultant Relationship Specialty Start Date End Date Molly Louis MD [address] [place], [place] [id number] PCP - General Family Medicine 02/09/24 11/15/24 [place] [address] [place] [address] PCP - General 11/16/24 Angela Oleary, RN [facility] Registered Nurse Cardiology 02/17/24 documented as of this encounter
--- OUTSIDE RECORDS SUMMARY | 2025-02-08 08:20 | XMS_ITS | Encounter Summary ---
Author Organization [employer] ([place], [place], [place], [place]) Address [address] [place] [address] Care Team Providers Care Imaging System Administrator Name Role Phone Molly Louis MD Primary Care Provider [phone] Encounter Details Date Type Department Care Team (Late st Contact Info) Description 08/22/2024 Outside Orders [facility] Admitting [address] [place] [address] Silverio Tam, PA [address] [place] [address] Esophageal reflux (Primary Dx) Social History Tobacco [...] Date Guerrero rded Speak language other than Panamanian at home Not on file 08/13/2023 Want [...] EIA Negative Negative 08/23/2024 10:57 PM EST [facility] Comment: Performed By: [facility] [address] [place] [address] Disposal Worker: Wilber Pardo MD, PhD CLIA Number: [id number] Stool 08/22/2024 11:3 5 AM EST 08/22/2024 11:36 AM EST [facility] - GENERAL ORDERAB LES Final Result Performing Organization Address [facility] de Phone Number [facility] [address] [place] [address] * Calprotectin, Fecal by Immunoassay(SENDOUT) (08/22/2024 11:35 AM EST) Calprotectin, Fecal 26 <=49 ug/g 08/26/2024 8:14 AM EST [facility] Comment: REFERENCE INTERVAL: Calprotectin, Fecal by Immunoassay Less than 50 ug/g........Normal 50-120 ug/g..............Borderline elevated, test should be re-evaluated in 4-6 weeks. 121 ug/g or greater......Elevated Performed By: [facility] [address] [place] [address] Disposal Worker: Wilber Pardo MD, PhD CLIA Number: [id number] Stool 08/22/2024 11:3 5 AM EST 08/22/2024 11:36 AM EST [facility] - GENERAL ORDERAB LES Final Result Performing Organization Address [facility] Co de Phone Number [facility] [address] [place] [address], [place] [phone] documented in this encounter Visit Diagnoses Diagnosis Esophageal reflux- Primary documented in this encounter Care Teams Imaging System Administrator Relationship Specialty Start Date End Date Molly Louis MD [address] [place] [address] PCP - General 08/22/24 documented as of this encounter
[2025-02-08 09:13] LABS: T4 (Thyroxine) 5.7 ug/dl (5.53-11.0)
[2025-02-08 09:27] LABS: Thyroid Stimulating Hormone 18.20 uIU/mL (0.465-4.68)
[2025-02-09 09:28] LABS: Insulin Level Total 14.9 uIU/mL (2.6-24.9)
[2025-02-09 13:11] LABS: Cortisol,AM 11.2 ug/dL (6.2-19.4)
== END 2025-02-08 23:59 | disposition home or self-care (01) ==
LOC: LAB 08:16
PROVIDERS: PCP Nurse Practitioner Family; Visit Provider Nurse Practitioner Family
DX: G90.A Postural orthostatic tachycardia syndrome [POTS] (principal); O90.5 Postpartum thyroiditis; E05.90 Thyrotoxicosis, unspecified without thyrotoxic crisis or storm
CPT/HCPCS: 36415; 82533; 83525; 84436; 84443

== ENCOUNTER 2025-03-11 10:34 | Emergency (ER) | payer MEDICAID, SELFPAY ==
--- OUTSIDE RECORDS SUMMARY | 2025-01-10 08:30 | XMS_ITS | Encounter Summary ---
[facility] Address [address] [place] [address] Care Team Providers Care Robotics Technician Name Role Phone Provider, No Known Primary Care Provider Unavail able Reason for Visit * Reason Comments Hyperthyroidism Encounter Details Date Type Department Care Team (Late st Contact Info) Description 01/10/2025 8:30 AM EDT Office Visit [facility] ENDOCRINOLOGY [address] [phone] Saskia Garcia MD [address] [facility] [address] [place] [id number] Hyperthyroidism (Primary Dx); Abnormal cortisol level Social History Tobacco Use Types Packs/Day Years Used Date Smoking Tobacco: Every Day Cigarettes 1 4.6 Started: 2020 Smokeless Tobacco: Never Tobacco Cessation:Ready to Q uit: Not Asked; Counseling Given: Not Answered Alcohol Use Standard Drinks/Week Comments Not Currently 0 (1 standard drink = 0.6 oz pur e alcohol) Comments Unknown Sex and Gender Information Value Date Recorded Sex Assigned at Not on file Legal Sex Female 8:39 AM EDT Gender Identity Not on file Sexual Orientation Not on file documented as of this encounter Last Filed Vital Signs Vital Sign Reading Time Taken Comments Blood Pressure 100/70 01/10/2025 8:40 AM EDT Pulse 85 01/10/2025 8:40 AM EDT Temperature - - Respiratory Rate - - Oxygen Saturation 100% 01/10/2025 8:40 AM EDT Inhaled Oxygen Concentration - - Weight 65.8 kg (145 lb) 01/10/2025 8:40 AM EDT Height 165.1 cm (5' 5 ) 01/10/2025 8:40 AM EDT Body Mass Index 24.13 01/10/2025 8:40 AM EDT documented in this encounter Progress Notes * Saskia Garcia MD - 01/10/2025 8:30 AM EDT Chief Complaint Patient presents with Hyperthyroidism New patient who is being seen in consultation regarding hyperthyroidism at the request of No ref. provider found HPI Francy Delarosa is a 24 y.o. female who presents for evaluation of hyperthyroidism. Patient reports no known history of thyroid dysfunction prior to . She does report that her mother had thyroid issues, exact diagnosis is not known and patient's mother is no longer living. Patient reports that symptomatic concerns arose in early , around 5 weeks gestation and patient reports she was started on propranolol. She developed symptoms in early , around 5 week s gestation. started on propranolol during . Patient also reports that she was diagnosed with POTS during . She does continue on propranolol 20 mg 3 times daily. Patient reports that she presented to the ER approximately 3 months and was given steroids and methimazole when she was in the hospital. However, she notes this was not continued upon discharge. She reports she has been in the hospital/ER on multiple occasions at , [facility] and in [place]. Patient reports concern for thyroid storm during hospitalization. She did see endocrinology at in October 2024. She reports that her symptoms did not improve until she was started on methimazole continuously. At that endocrinology note reports patient had negative TSI, positive TPO antibodies. She reports propranolol has been helpful for tremors. She also reports that she has stopped losing weight since being started on methimazole. Patient also reports that her PCP has been concerned that her adrenal glands are not functioning appropriately. She reports that her PCP was worried about her cortisol level of 7 during prior hospitalization. Notably, this was obtained after patient had been given steroids. Past Medical History: Diagnosis Date POTS (postural orthostatic tachycardia syndrome) Past Surgical History: Procedure Laterality Date CHOLECYSTECTOMY N/A DILATATION AND CURETTAGE N/A HAND SURGERY Right Pins inserted pins removed TONSILLECTOMY AND ADENOIDECTOMY N/A Family History Problem Relation Age of Onset Thyroid disease Mother Autoimmune disease Mother Heart attack Father Stroke Father Wilm's tumor Father Crohn's disease Brother Liver disease Brother Social History Socioeconomic History Marital status: Tobacco Use Smoking status: Every Day Current packs/day: 1.00 Average packs/day: 1 pack/day for 4.5 years (4.5 ttl pk-yrs) Types: Cigarettes Start date: 2020 Smokeless tobacco: Never Vaping Use Vaping status: Former Substances: Nicotine, Flavoring Passive vaping exposure: Yes Substance and Sexual Activity Alcohol use: Not Currently Drug use: Never Allergies Allergen Reactions Augmentin [Amoxicillin-Pot Clavulanate] Swelling Swelling and rash Penicillin G Swelling Swelling and rash Current Outpatient Medications on File Prior to Visit Medication Sig Dispense Refill acetaminophen (TYLENOL) 325 MG tablet Take 1 tablet by mouth As Needed. busPIRone (BUSPAR) 5 MG tablet Take 1 tablet by mouth every night at bedtime. cholecalciferol (VITAMIN D3) 25 MCG (1000 UT) tablet Take 4 tablets by mouth Daily. famotidine (PEPCID) 20 MG tablet Take 1 tablet by mouth Daily As Needed. fludrocortisone 0.1 MG tablet Take 1 tablet by mouth Daily. methIMAzole (TAPAZOLE) 10 MG tablet Take 1.5 tablets by mouth Daily. omeprazole (priLOSEC) 20 MG capsule Take 1 capsule by mouth Daily. ondansetron ODT (ZOFRAN-ODT) [address] 1 tablet on the tongue As Needed. propranolol (INDERAL) 10 MG tablet Take 2 tablets by mouth 3 (Three) Times a Day. simethicone (MYLICON) 80 MG chewable tablet Chew 1 tablet As Needed. sodium chloride 1 g tablet Take 1 tablet by mouth Daily. No current facility-administered medications on file prior to visit. Review of Systems Constitutional: Positive for unexpected weight loss. HENT: Positive for postnasal drip and sore throat. Respiratory: Positive for shortness of breath. Cardiovascular: Positive for chest pain (Not current, patient is following with cardiology.) and palpitations. Gastrointestinal: Positive for abdominal pain, constipation, diarrhea and nausea. Endocrine: Positive for cold intolerance, heat intolerance, polydipsia, polyphagia and polyuria. Musculoskeletal: Positive for arthralgias and neck pain. Skin: Positive for rash. Allergic/Immunologic: Positive for immunocompromised state. Neurological: Positive for dizziness, tremors, syncope, weakness, light- headedness and headache. Psychiatric/Behavioral: The patient is nervous/anxious. Vitals: 01/10/25 0840 BP: 100/70 BP Location: Left arm Patient Position: Sitting Cuff Size: Adult Pulse: 85 SpO2: 100% Weight: 65.8 kg (145 lb) Height: 165.1 cm (65 ) Body mass index is 24.13 kg/m??. Physical Exam Vitals reviewed. Neck: Thyroid: No thyromegaly or thyroid tenderness. Cardiovascular: Rate and Rhythm: Normal rate and regular rhythm. Pulmonary: Effort: Pulmonary effort is normal. Breath sounds: Normal breath sounds. Neurological: Mental Status: She is alert. Psychiatric: Mood and Affect: Mood and affect normal. Behavior: Behavior is cooperative. Labs/Imaging Latest Reference Range & Units 09/08/24 14:40 10/04/24 20:51 11/11/24 10:20 11/20/24 21:17 12/15/24 15:29 TSH Baseline 0.360 - 3.740 uIU/mL 3.068 (E) 1.252 (E) Free T4 0.8 - 1.7 ng/dL 0.92 (E) 2.3 (H) (E) 2.4 (H) (E) 1.7 (E) T3, Total 87 - 187 ng/dL 176 (E) 177 (E) TSH 0.40 - 4.20 uIU/mL <0.01 (L) (E) <0.01 (L) (E) <0.01 (L) (E) (H): Data is abnormally high (L): Data is abnormally low (E): External lab result 01/04 TT4 7.6 FT4 1.14 Ft3 3.1 TSH suppressed 12/21 10.6 FT4 1.01 Ft3 4.0 12/02 FT3 4.5 TT4 16.6 Ft4 2.68 ANC 64.6 ASt 18 Alt 14 alk p 53 09/2024 TPO 177 Latest Reference Range & Units 02/08/24 06:40 Cortisol Before 10am: 3.7 - 19.4. After 5pm: 2.9 - 17.3 ug/dL 29.20 (E) (E): External lab result Assessment and Plan Diagnoses and all orders for this visit: 1. Hyperthyroidism (Primary) - TSH; Future - T4, Free; Future - T3, Free; Future - Thyrotropin Receptor Antibody; Future - Thyroid Stimulating Immunoglobulin; Future Potential etiologies of hyperthyroidism. Patient does have elevated TPO antibodies which can predispose to thyroiditis. Development of hyperthyroidism is somewhat delayed for typical course of thyroiditis. Per outside documentation, TSI was normal but we will plan to repeat thyroid antibodies with upcoming labs. Patient reports that she feels her symptoms only improved after starting methimazole. We did discuss that methimazole would not be expected to impact her clinical course of thyroiditis, if this were the etiology. Reviewed recent labs with patient. Free T3 and free T4 are now normal. TSH remains suppressed but this can lag behind. Given trajectory of thyroid hormones, would recommend reduction of methimazole to 15 mg daily in an attempt to avoid hypothyroidism. Patient will repeat labs likely in 4 weeks. Symptoms of thyroid hormone abnormalities were reviewed and patient will contact the clinic in the interim between visits with any concerning changes. 2. Abnormal cortisol level - Cortisol - AM; Future Per patient report, she had a cortisol value of 7 during one of her hospital stations which her PCPwas concerned was not adequate and prompted concern for her adrenal glands. This data is not available to review. Per history, patient had received steroids prior to lab draw which would mean this lab is not interpretable. Of note, patient had a morning cortisol value of 29.2 in January 2024 which would be more than sufficient to exclude adrenal insufficiency. However, this could also be elevated due to increased CBG from . Plan to have patient repeat cortisol value locally at 8 AM given her concern. Discussed this lab cannot be completed in the setting of steroid administration. Patient voiced understanding. Addendum dated 01/11/25 Received results of thyroid ultrasound dated 11/04/2024- full report in media Right thyroid lobe measures 5 x 1.7 x 1.2 cm Left thyroid lobe measures 5 x 1.5 x 1.4 cm Impression: Unremarkable thyroid evaluation Return in about 2 months (around 03/12/2025). The patient was instructed to contact the clinic with any interval questions or concerns. Electronically signed by: Saskia Garcia MD Dictated [employer] D[employer] documented in this encounter Plan of Treatment Scheduled Orders Name Type Priority Associated Diagnoses Orde r Schedule TSH Lab Routine Hyperthyroidism Expected: 04/12/2026 (Approximate), Expires: 04/12/2026 T4, Free Lab Routine Hyperthyroidism Expected: 04/12/2026, Expires: 04/12/2026 T3, Free Lab Routine Hyperthyroidism Expected: 04/12/2026, Expires: 04/12/2026 Thyrotropin Receptor Antibody Lab Routine Hyperthyroidism Expected: 04/12/2026, Expires: 04/12/2026 Thyroid Stimulating Immunoglobulin Lab Routine Hyperthyroidism Expected: 04/12/2026, Expires: 04/12/2026 Cortisol - AM Lab Routine Abnormal cortisol level Expected: 04/12/2026, Expires: 04/12/2026 documented as of this encounter Visit Diagnoses Diagnosis Hyperthyroidism- Primary Thyrotoxicosis without mention of goiter or other cause, without mention of thyrotoxic crisis or storm Abnormal cortisol level documented in this encounter Care Teams Robotics Technician Relationship Specialty Start Date End Date Provider, [place] [address] PCP - General 02/08/24 documented as of this encounter
--- OUTSIDE RECORDS SUMMARY | 2025-01-17 06:36 | XMS_ITS | Encounter Summary ---
Author Organization [facility] Address [address] [place] [address] Care Team Providers Care Asbestos Worker Name Role Phone Angela Oleary RN Unavailable Unavailable Rey Wyatt MD Primary Care Provider [phone] Reason for Referral * Imaging (Routine) - Closed Specialty Diagnoses / Procedures Referred By Mili t Referred To Contact Gastroenterology Diagnoses Abdominal pain, epigastric Diarrhea, unspecified type Weight loss Hematochezia Procedures Capsule Endoscopy Silverio Tam PA [address] [facility] [address] [place] [address] Phone: tel: fax: Referral ID Status Reason Start Date Expiration Date V isits Requested Visits Authorized [id number] Closed Specialty Services Required 12/28/2024 06/29/2026 1 1 Reason for Visit * Imaging (Routine) - Closed Specialty Diagnoses / Procedures Referred By Mili t Referred To Contact Gastroenterology Diagnoses Abdominal pain, epigastric Diarrhea, unspecified type Weight loss Hematochezia Procedures Capsule Endoscopy Silverio Tam PA [address] [facility] [address] [place] [address] Phone: tel: fax: Referral ID Status Reason Start Date Expiration Date V isits Requested Visits Authorized [id number] Closed Specialty Services Required 12/28/2024 06/29/2026 1 1 Encounter Details Date Type Department Care Team (Latest Contact Info) Description 01/17/2025 6:36 AM EDT - 01/17/2025 11:59 PM EDT Hospital Encounter [facility] S Endoscopy [address] [place] [address] Cody Barnett MD [address] [place] [address] Abdominal pain, epigastric; Diarrhea, unspecified [...] often do you attend chur ch or anabaptist services? Never 02/22/2024 Do you [...] Recorded Patient Health Questionnaire-2 Score 0 12/15/2024 [facility] - Occupational Stress Questionnaire Answer [...] in a fpc (including now)? 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 0 07/16/2024 CAGE Questionnaire Score 0 024 Utilities Answer Date Recorded In the past 12 months has th e [email or web address], gas, oil, or water [employer] threatened to shut off services in your [...] capsule 1 07/18/2024 Blood Glucose Monitoring Suppl (Selfie[employer]com Verio Reflect) w/Device kit 04/14/2024 busPIRone (Buspar) 5 MG tablet Take 1 tablet (5 mg) by mouth every night. Takes at 8PM 30 tablet 08/16/2024 cefdinir (Omnicef) 300 MG capsule take one capsule by mouth every twelve hours for 10 days 12/08/2024 cholecalciferol (Vitamin D-3) 50 MCG (2000 UT) capsule 10/25/2024 famotidine (Pepcid) 20 MG tablet Take 1 tablet (20 mg) by mouth 2 (two) times a day. 60 tablet 11 08/16/2024 fludrocortisone (Florinef) 0.1 MG tabletIndications:P helen's disease Take 1 tablet by mouth daily. 30 tablet 3 11/16/2024 fluticasone (Flonase) 50 MCG/ACT nasal spray Administer 1 spray into each nostril daily. 12/08/2024 ibuprofen 600 MG tablet Take 1 tablet (600 mg) by mouth every 6 (six) hours if needed for mild pain. 30 tablet 1 07/18/2024 Lancets (OneTouch Delica Plus [id number]) [facility] 04/14/2024 ondansetron (Zofran) 4 MG tablet Take 1 tablet (4 mg) by mouth every 8 (eight) hours if needed for nausea or vomiting. 3 tablet 5 07/18/2024 ondansetron ODT (Zofran-ODT) 4 MG disintegrating tablet Dissolve 2 tablets on the tongue every 8 hours as needed for nausea or vomiting. 20 tablet 5 12/30/2024 OneTouch Verio test strip 1 each by [...] day. 30 tablet 1 07/18/2024 sodium chloride ([place] Nasal [place]) 0.65 % nasal spray Administer 1 spray [...] Medications Medication Instructions Blood Glucose Monitoring Suppl ([employer] Verio Reflect) w/Device kit busPIRone (BUSPAR) 5 mg, Oral, Nightly, Takes at 8PM cefdinir (Omnicef) 300 MG capsule take one capsule by mouth every twelve hours for 10 days cholecalciferol (Vitamin D-3) 50 MCG (1999) capsule famotidine (PEPCID) 20 mg, Oral, 2 times daily fludrocortisone (FLORINEF) 0.1 mg, Oral, Daily fluticasone (Flonase) 50 MCG/ACT nasal spray 1 spray, Daily ibuprofen 600 mg, Oral, Every 6 hours PRN Lancets (Innorange OyTouch Delica Plus [id number]) misc methIMAzole (TAPAZOLE) 10 mg, Oral, Daily ondansetron (ZOFRAN) 4 mg, Oral, Every 8 hours PRN ondansetron ODT (ZOFRAN-ODT) 8 mg, Oral, Every 8 hours PRN OneTouch Verio test strip 1 each, As needed potassium & sodium phosphates (Phos-NaK) 280-160-250 MG packet 1 packet, Oral, Daily Vit-Fe Fumarate-FA ( Vitamins) 28-0.8 MG tablet 1 tablet, Oral, Daily propranolol (INDERAL) 20 mg, Oral, 3 times daily senna-docusate (Codi-Colace) 8.6-50 MG tablet 1 tablet, Oral, Daily sodium chloride ([place]ler Nasal [place]) 0.65 % nasal spray 1 spray, Each [...] 20 - 29 Liver disease Brother Scott - 29 Anesthesia problems Neg Hx Malig [...] min Stress: No Stress Concern Present (02/22/2024) [place] of Occupational Health - Occupational Stress Questionnaire Feeling of Stress : Not at all Social Connections: Moderately Isolated (02/22/2024) Social Connection and Isolation Panel Frequency of Communication with Friends and Family: More than three times a week Frequency of Social Gatherings with Friends and Family: Once a week Attends Rastafari Services: Never Active Member of Clubs or [...] Care Team (Late st Contact Info) Description 03/15/2025 3:[address] [facility] [address], [address] [place] [address] Kendy Sanchez, PRESCHOOL ASSISTANT [address] [place] [address] 04/04/2025 4:00 PM EDT Office Visit [facility] Specialties [address], [address] [place] [address] Zia Hollis MD [address] [place] [address] 04/17/2025 2:00 PM EDT Office Visit [facility]ties [address], [address] [place] [address] Silverio Tam PA [address] [place] [address] 06/19/2025 8:00 AM EST Office Visit [facility] [place] [address], [address] [place] [address] Courtney Torres MD [address] [place] [address] documented as of this encounter Goals Goal [...] documented as of this encounter Care Teams Asbestos Worker Relationship Specialty Start Date End Date Rey Wyatt MD [address] [facility] [address] [place] [address] PCP - General 11/16/24 Angela Oleary, RN [facility] Registered Nurse Cardiology 02/17/24 documented as of this encounter
--- OUTSIDE RECORDS SUMMARY | 2025-02-16 13:20 | XMS_ITS | Encounter Summary ---
Author Organization [facility] Address [address] 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 Name Role Phone Angela Oleary RN Unavailable Unavailable Rey Wyatt MD Primary Care Provider [phone] Reason for Referral * Cardiac Stress Testing (Routine) - Authorized Specialty Diagnoses / Procedures Referred By Contac t Referred To Contact Cardiology Diagnoses Syncope and collapse Procedures Outside Tilt Table Test Courtney Torres MD [address] [place] [address] Phone: tel: fax: Referral ID Status Reason Start Date Expiration Date V isits Requested Visits Authorized [id number] Authorized 02/16/2025 08/18/2026 1 1 Encounter Details Date Type Department Care Team (Late st Contact Info) Description 02/16/2025 1:20 PM EDT Office Visit [facility] [address] [place] [address] Courtney Torres MD [address] [place] [address] Syncope and collapse (Primary Dx); Dysautonomia-like disorder Social History Tobacco Use Types Packs/Day Years [...] in a [facility] (including now)? 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 [facility] Medical Office Building [address] [facility] [address] [place] [address] Clinic Jackie JayNola: Our Lab: [address] [place] [address] (call to schedule a lab appointment) It was a pleasure to see you at the [facility] on [facility] [place]. We strive to provide timely care for all our patients, and your cooperation is essential in helping us achieve this goal. To ensure a smooth visit, we kindly ask that you arrive 20-30 minutes prior to your scheduled appointment time. Additionally, please bring all yourmedications or an updated list of your medications for our staff to review. If you have any questions or concerns, feel free to contact us by phone or send a message through [employer]. We are committed to accommodating all inquires and requests in a timely fashion. If you experience any cardiac symptoms, such as chest pain or shortness of breath, please reach outto us immediately. If you cannot reach us, seek emergency medical assistance at your nearest emergency department. We want to ensure the best possible care for you. If you visit urgent care, an emergency department, or are hospitalized before your next appointment, please notify our office. Additionally, please bring any relevant discharge paperwork and cardiac test results to your next visit for review. If you encounter any issues with your medications--such as filling, refilling, or side effects--, scheduling diagnostic tests, or scheduling referrals please call our office and send us a message through [employer] so we can assist you. Thank you for coming to clinic today! Below is some information about what we discussed and a list of the orders that were placed during the visit. -Orders Placed This Visit Orders Placed This Encounter Procedures Catecholamines, fractionated, plasma Standing Status: Future Expected Date: 02/16/2025 Expiration Date: 08/19/2026 [facility] [[facility]] Cortisol Standing Status: Future Expected Date: 02/16/2025 Expiration Date: 08/19/2026 [facility] [1] Ferritin, Serum Standing Status: Future Expected Date: 02/16/2025 Expiration Date: 08/19/2026 [facility] [1] Tryptase Standing Status: Future Expected Date: 02/16/2025 Expiration Date: 08/19/2026 [facility] [1] Outside Tilt Table Test Eval for VVS vs POTS; syncope Standing Status: Future Expected Date: 02/16/2025 Expiration Date: 02/16/2027 [facility] [1] Cardiopulmonary Exercise Test Standing Status: Future Expected Date: 02/16/2025 Expiration Date: 08/19/2026 Type:: Complex (VO2) Post-exercise spirometry?: Yes Where will this be performed?: [facility] CP[facility] ECG Standing Status: Future Expected Date: 02/16/2025 Expiration Date: 08/19/2026 Coordinated with another study:: Part of CPET New Medications Ordered This Visit Medications levothyroxine (Synthroid, Levoxyl) 25 MCG tablet Sig: Take 1 tablet by mouth daily. simethicone (Mylicon) 80 MG chewable tablet Sig: Chew 1 tablet every 6 hours as needed. oral electrolytes (Thermotabs) tablet Sig: Take 1 tablet by mouth 2 times a day. Dispense: 60 tablet Refill: 1 Wrap Up: Orthostatic Intolerance Recommendations: A. General recommendations - The mainstay for improving orthostatic intolerance includes volume expansion (water and salt intake) and exercise - Transition slowly from sitting or lying to standing B. Increase daily intake of sodium and water. 1. Drink at least 1.5-2.5 liters of water or other liquids (five to eight 8- ounce glasses) - Fluid bolus: Drink rapidly two 8-ounce glasses (500 mL) of cold water up to 3 times per day. Do this: 1) Upon awakening in the morning 2) Before prolonged standing (for example, shopping) 3) Beforeany other circumstance that may produce symptoms (for example, before a walk, exercise, or taking ashower) - Take at least 1 glass of water or fluids with meals AND 2. Increase sodium intake to at least 5 grams and up to 10-20 grams (2-4 tsp) daily - Foods with high sodium content include salted pumpkin seeds, olives, pickles, canned soups, ham, little, additives such as soy sauce. - Over-the counter sodium chloride salt tablets (0.5- 1 gram) may be used but can produce stomach upset. - Increase the amount of potassium in your diet including fruit (especially bananas), vegetables and potatoes. C. Postural countermaneuvers Examples: Edilma abdominal and buttock muscles for 30 seconds, Leg crossing, Bending at the waist, Toe raises, Contract the thigh muscles, Slow marching in pace, Squat D. Abdominal and leg compression 1. Put on before getting out of bed and take off when lying down - Use an abdominal binder (Spanx garments may work for women) or - Waist-high compression stockings or - Combination of an abdominal binder and leg stockings. - Spandex-type elastic exercise shorts sized to fit tightly. E. Exercise regularly - Swimming, recumbent biking, rowing machine - Avoid heavy lifting or exercising in hot, humid environments - Weight lifting with focus on legs and core; avoid heavy weights and sustained lifts. Additional Recommendations if you black out (syncope): 1) Do not drive for at least 90 days after the date of the last passing out spell or until cleared by a competent medical authority 2) Avoid open flame or open bodies of water 3) Avoid situations where loss of awareness may predispose to injury 4) Avoid swimming alone 5) Take showers, not baths 6) Avoid sleep deprivation or other known seizure risk factors including alcohol Postural Orthostatic Tachycardia Syndrome (POTS) The following is adapted from the [facility] and Dr. Reji Esquivel ([facility]) VIDEO: What is POTS? [email or web address] POTS Manual ([facility]): [email or web address].org/pots General Advice: --Hydration: Hydrate with just water - try to get 3 liters (100 ounces) in the day --Compression Garments: Try wearing abdominal and/or thigh binders --Diet: Avoid large meals. Instead, eat smaller but frequent meals with proteins, complex carbs, veggies, and good fat oils (olive oil, avocado, walnut). Little to no fried food. Eliminate simple sugars (refined carbs) and reduce dairy. --Sleep: Go to bed at the same time and wake up at the same time each day. Eliminate naps. --Exercise: Light to moderate intensity exercise daily. Start with just 10 minutes at a time and work up to 150 minutes per week. The Nervous System: The brain controls the Autonomic Nervous System. The Sympathetic Nervous System is responsible for stress and survival and is why you feel the symptoms of adrenaline which include but are not limitedto: racing heart rate, chest pain, sweating, neck pain, fainting, near fainting, nausea diarrhea, bloating, frequent urination, skin tingling, ears ringing, heightened senses, inability to sleep, cannot think, brain fog, jerking limbs, muscle tightness, etc. The Parasympathetic Nervous System is responsible for growth and repair, rest and digest. Some may notice a drop in heart rate after a sympathetic surge. The polyvagal symptoms may take over: the heart rate and blood pressure drop, you may feel cold, feel the sensation of rubber legs, defecate, urinate etc. This explains the cycle of Fight, Flight, and Freeze. Once your body gives way to adrenaline, you may become listless and exhaustedfeeling the rag doll effect. Sterile Inflammation: The nervous system can create its own inflammatory response. This is not autoimmune, but just inflammation. This response of the nervous system can lead to neuron excitement that is sustained called neuro excitatory and with secondary inflammation. This is how fibromyalgia and migraines behave as well POTS. Some first-line treatments with anti inflammatory may help these conditions, but the core work involves treatment of the neurological system by re-wiring via neurological medications, wellness, education work for insights, health psychology, biofeedback, and this work creates new circuits to stop this reaction Gut Health: --The gut is the second brain --GI issues remain one of the constant and most common complaints of those with orthostatic issues.Many suffer with bloating, pain, constipation, and diarrhea. Adrenaline is a huge factor and has animpact on digestion. One cannot rest and digest if in adrenaline mode as the body is in survival mode--focused on other organs and self-preservation. A body in survival does not digest efficiently. --Adrenaline stops the ability to rest and digest and thus more pain, bloating, IBS, and less good nutrients. More skin isues (acne, eczema, rosacea, dry skin, hair loss,dry hair), leaky gut, normal bacteria leaves, and more digestion challenges /food intolerance --Swallow issues /gag/ voice changes since is vagal and adrenaline will make this vagal not work . Gargling, singing, brushing tongue exercises help correct. If can gargle with salt water helps also --Most of immune system is in the gut and can lead to much food challenges. Even can be challenge to know what is mast cell and not. Often getting gut right with probiotics, control of POTS, and dietchanges to help gut healing helps reduce issue of the gut being inflamed and what may be or could be mast cell . --Sugar is very irritating to the gut can cause laxative effect. Also ties into why we may see thatdairy, wheat, white food, gluten free is better, and less refined foods are better for pots. The sugar and the altered gut state can lead to poor absorption that lead to sugar spikes, reactive hypoglycemia, and sugar dumps. Adrenaline also leads to insulin use and sugar changes of up and then drop.Sugar spikes and drop leads to fatigue, anxiety, depressive feeling, headache, skin changes, weightup and down, and more. Why being sugar reduced is ugalde and helps in POTS. FODMAP diet. Hydration drinks with less sugar and also avoid artificial sweeteners (the artificial sweeteners causes confusionto the body and spike insulin still sense there is sugar). Diets best with small meals, hydration ,water, proteins, good fats (ghee butter, olive oils,) veggies, and complex carbs through the day. Have to eat and train the gut as a muscle thus small meals in the day. --Small meals, simple proteins Chicken/fish, Hydrate with water, avoid artificial chemicals and sweeteners, Probiotics for balancing and gut healing, supplement with oregano, renny, and turmeric canalso help. These changes take time to see a result. Adapted from the [facility] and Dr. Reji Esquivel ([facility]) * Progress Notes - Courtney Torres MD - 02/16/2025 1:20 PM EDT Images from the original note were not included. CARDIOLOGY CLINIC FOLLOW UP PATIENT NOTE Chief Complaint: Follow Up Subjective: Francy Delarosa is a 24 y.o. female has been previously seen by Cardiology. Pt today seen with and RN. Prior medical visits and orders pertaining to cardiology: Pt was last seen in Cardiology clinic on 11/16/24 with ongoing debilitating (remains in wheelchair) POTS symptoms post-, exacerbated in setting of recent thyroid storm. Prior ECHO showed EF normal and no significant valvular disease. Initially had planned for trial of ivabradine and had planned forr tilt table testing, discussed with patient today and would not recommend trying new medication or having tilt table test until improved from hyperthyroid standpoint. Pt has been on fludrocortisone and propranolol 20mg TID. Previous work up: [x] TTE [x] heart monitor [x] Current medications for the problem above Pt writes Propranolol and Fludricortisone [x] Medications that have not been effective Pt writes: Metoprolol, hydralazine and Benadryl ROS: Pt endorses all of the following as POSITIVE [x] Exertional and non-exertional Syncope [x] Presyncope [x] Lightheadedness and dizziness upon standing [x] vertigo (spinning sensation) [x] cognitive impairment [x] Joint hypermobility [x] difficulty sleeping [x] falls [x] pain, discoloration, or numbness in feet [x] Constipation, [] diarrhea, [] nausea, [] bloating , or other [] GI complaints [x] urinary symptoms (incontinence, frequency, etc) [x] [] depression [x] anxiety [x] headaches: [x] excessive sweating [x] history of fatigue [x] Palpitations [x] Fading vision [x] Difficulty concentrating [x] Tremulousness [x] Symptoms tend to be worse during : [x] prolonged standing [x] meals [x] during menses [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 [x] Unable to tolerate standing while taking a warm shower [x] Must sit down to bathe. After a shower they may have to lie down and rest. ROS ROS was performed which was reportedly negative per patient except for pertinent positives and negatives as documented in the HPI. The following portions of the chart were reviewed this encounter and updated as appropriate: Tobacco Allergies Meds Problems Med Hx Surg Hx Fam Hx Allergies Amoxicillin-pot clavulanate, Cinnamon, Penicillin g, Betamethasone dipropionate (augmented) [betamethasone], and Penicillins Medications Current Medications[1] Objective: Physical Exam Vitals: 02/16/25 1256 BP: 118/76 Pulse: 64 SpO2: 99% Body mass index is 24.86 kg/m??. Constitutional: Appearance: No acute distress HENT: No Xanthelasma Cardiovascular: Jugular Veins WNL (Normal venous pressure, normal a and v waves Carotid Arteries WNL (Normal pulse volume, contour; symmetrical; no bruits or radiated murmurs) Heart Inspection: wnl Palpation: wnl Sounds: normal S-1, S-2 Extra sounds: none Murmurs: none Peripheral Pulses WNL (Normal femoral, popliteal, posterior tibial and dorsal pedis pulse volume, symmetrical, no bruits) Pulmonary: Effort: Pulmonary effort is normal. No respiratory distress. Breath sounds: Normal breath sounds. No wheezing or rales. Gastrointestinal no HJR Musculoskeletal: Right lower leg: No edema. Left lower leg: No edema. Warm and well perfused Psychiatric: Mood and Affect: Mood normal. Behavior: Behavior normal INTEGUMENTARY Diffuse rash UE and LE and torso and back Lab Review No lab exists for component: ALB Lab Results Component Value Date GLUCOSE 84 12/15/2024 CALCIUM 9.4 12/15/2024 NA 140 12/15/2024 K 4.1 12/15/2024 CO2 21 (L) 12/15/2024 CL 105 12/15/2024 BUN 8 12/15/2024 CREATININE 0.60 12/15/2024 Lab Results Component Value Date WBC 5.38 12/15/2024 HGB 12.6 12/15/2024 HCT 39.7 12/15/2024 PLT 311 12/15/2024 MCV 83 12/15/2024 No lab exists for component: NTPROBNP Lab Results Component Value Date TSH 1.83 01/17/2025 BNP <50 07/16/2024 Lab Results Component Value Date TSH 1.83 01/17/2025 No results found for: HGBA1C Assessment/Plan Francy Delarosa is a 24 y.o. female who presents to clinic today for follow up visit. Evaluation for Dysautonomia/Orthostatic Intolerance/POTS: reason for referral -Ongoing symptoms of tachycardia, palpitations, shortness of breath, and dizziness/syncope most consistent with autonomic dysfunction -Possible manifestations include: inappropriate sinus tachycardia (IST), positional tachycardia (POTS), and/or orthostasis -Pt reassuring evaluation in cardiology clinic today by her cardiac exam, ECG -Orthostatics in clinic today as below: Will plan for the following: -Ruled out cardiovascular syncope with: TTE excluded structural abnormalities: No VHD ( or MS), CM (ichemic, dilated, hypertrophic), atrial myxoma, tamponade or aortic disection Holter and EKGS without arrythmias including: VT, Long QT, Brugada, Bradycardia (Mobitz Type II or 3rd degree heart block, significant pausees >3 seconds) -Will pursue further testing to include: Cardiopulmonary Exercise Test Autonomic Testing: Tilt Table Testing No Sudomotor testing available -Will assess labs including: Cortisol Catecholamines Serum Ferritin Level Tryptase -Multidisciplinary Evaluation to include referrals to the following: Refer to Neurology to r/o epilepsy or subclinical seizures and or complex migraines and subtypes ofPOTS Has seen Sleep Medicine at [place], [place] Follows Psychiatry : [facility] [place], [place] -Initial Conservative Treatment Strategy: -Water and salt intake: 3L fluid intake daily (2 L water + 1L Electrolyte fluid) -Exercise: incremental program of aerobic exercise and yoga -Lifestyle Management: Encourage patients to be upright as much as possible during the day and to avoid prolonged bedrest, which can lead to further deconditioning. Manage catastrophizing, anxiety, and functional disability with counseling and cognitive behavioral therapy. Develop physical habits to reduce triggering symptoms. As examples, lower extremity muscle tensing, leg crossing, and weight shifting engage the skeletal muscle pump to improve venous return and can provide immediate temporary symptom relief. Improve sleep quality by having a consistent bedtime and wake time, not spendingtime in bed during the day, winding down prior to going to bed, and ensuring that the bedroom enviro nment promotes sleep. Compressive garments. -Develop physical habits to reduce triggering symptoms. As examples, lower extremity muscle tensing, leg crossing, and weight shifting engage the skeletal muscle pump to improve venous return and can provide immediate temporary symptom relief. -Strongly recommended an increased participation in exercise with a particular focus on core strengthening exercises. It is important to remember FIT in terms of an exercise program (i.e. frequency, intensity, and timing/type). I recommend exercise for 5 days per week to strengthen the core and lower body muscles. Given handout for exercise program. -Please refer to this exercise program: [email or web address] -Baseline exercise tolerance: can ambulate 12 stairs -Pt clearly advised that testing will need to be completed or follow up appt will be rescheduled. -If detailed work up does not reveal etiology and management has only limited results, may be beneficial for referral to dedicated Dysautonomic center Courtney Torres MD I spent 30 minutes performing the following components of the encounter: reviewing History, prior note/ lab review, examining the patient, reviewing imaging and/or labs, Independently interpreting ECG and/or other imaging results, ordering tests or procedures, ordering medications, medical management, counseling the patient and/or family/caregiver, discussion and care coordination, and entering clinical information in the EHR. Greater than 50% of the time spent on the encounter was face to faceproviding direct patient care, counseling for the patient/caregiver, and care coordination. [1] Current Outpatient Medications Medication Sig Dispense Refill acetaminophen (Tylenol) 325 MG capsule Take 2 capsules (650 mg) by mouth every 6 (six) hours if needed for mild pain. 30 capsule 1 Blood Glucose Monitoring Suppl (Primeloop Verio Reflect) w/Device kit busPIRone (Buspar) 5 MG tablet Take 1 tablet (5 mg) by mouth every night. Takes at 8PM 30 tablet 0 cholecalciferol (Vitamin D-3) 50 MCG (2000 UT) capsule famotidine (Pepcid) 20 MG tablet Take 1 tablet (20 mg) by mouth 2 (two) times a day. 60 tablet 11 fludrocortisone (Florinef) 0.1 MG tablet Take 1 tablet by mouth daily. 30 tablet 3 fluticasone (Flonase) 50 MCG/ACT nasal spray Administer 1 spray into each nostril daily. ibuprofen 600 MG tablet Take 1 tablet (600 mg) by mouth every 6 (six) hours if needed for mild pain. 30 tablet 1 Lancets (RadMituch Delica Plus [id number]) misc levothyroxine (Synthroid, Levoxyl) 25 MCG tablet Take 1 tablet by mouth daily. ondansetron (Zofran) 4 MG tablet Take 1 tablet (4 mg) by mouth every 8 (eight) hours if needed for nausea or vomiting. 3 tablet 5 ondansetron ODT (Zofran-ODT) 4 MG disintegrating tablet Dissolve 2 tablets on the tongue every 8 hours as needed for nausea or vomiting. 20 tablet 5 EmailageTouch Verio test strip 1 each by Other route if needed. potassium & sodium phosphates (Phos-NaK) 280-160-250 MG packet Take 1 packet by mouth 1 (one) time each day. 30 packet 1 Vit-Fe Fumarate-FA ( Vitamins) 28-0.8 MG tablet Take 1 tablet by mouth 1 (one) time each day. 30 tablet 11 propranolol (Inderal) 20 MG tablet Take 1 tablet by mouth 3 (three) times a day. 90 tablet 3 senna-docusate (Codi-Colace) 8.6-50 MG tablet Take 1 tablet by mouth 1 (one) time each day. 30 tablet 1 simethicone (Mylicon) 80 MG chewable tablet Chew 1 tablet every 6 hours as needed. sodium chloride (Alanreed Nasal [place]) 0.65 % nasal spray Administer 1 spray into each nostril if needed for congestion. 30 mL 12 Ventolin HFA 108 (90 Base) MCG/ACT inhaler cefdinir (Omnicef) 300 MG capsule take one capsule by mouth every twelve hours for 10 days (Patientnot taking: Reported on 01/17/2025) methIMAzole (Tapazole) 10 MG tablet Take 1 tablet by mouth daily. (Patient not taking: Reported on 02/16/2025) 60 tablet 0 Current Facility-Administered Medications Medication Dose Route Frequency Provider Last Rate Last Admin sodium chloride 0.9 % infusion 250 mL 250 mL Intravenous Once Shalonda Davies APRN documented in this encounter Plan of Treatment Upcoming Encounters Date Type Department Care Team (Late st Contact Info) Description 03/15/2025 3:30 PM EDT Consult [facility] [address] [place] [address] Kendy Sanchez APRN [address] [place] [address] 04/04/2025 4:00 PM EDT Office Visit [facility] [address] [place] [id number] Zia Hollis MD [address] [place], [place] [id number] 04/17/2025 2:00 PM EDT Office Visit [facility] [address] [place] [phone] Silverio Tam PA [address] [place] [address] 06/19/2025 8:00 AM EST Office Visit [facility] [place] [address] [place] [address] Courtney Torres MD [address] [place] [id number] Scheduled Orders Name Type Priority Associated Diagnoses Orde r Schedule Outside Tilt Table Test Cardiac Services Routine Syncope and collapse Expected: 02/16/2025 (Approximate), Expires: 02/16/2027 documented as of this encounter Goals Goal Patient Goal Type Associated Problems Recent Progress Patient-Stated? Author Delayed Delivery Care Plan CPM S22 PP LABOR (OBSTETRICS) No Open Scheduling, Background documented as of this encounter Procedures Procedure Name Priority Date/Time Associated Diagnosis Comments CATECHOLAMINES, FRACTIONATED, PLASMA Routine 02/16/2025 2:17 PM EDT Dysautonomia-like disorder TRYPTASE (SO) Routine 02/16/2025 2:17 PM EDT Dysautonomia-like disorder FERRITIN, SERUM Routine 02/16/2025 2:17 PM EDT Dysautonomia-like disorder CORTISOL Routine 02/16/2025 2:17 PM EDT Dysautonomia-like disorder documented in this encounter Results * CPET ECG (03/01/2025 11:19 AM EDT) Anatomical Region Laterality Modality PFT 03/01/2025 10:4 9 AM EDT Narrative 03/01/2025 11:43 AM EDT Images from the original result were not included. [facility] Cardiopulmonary Exercise Testing Laboratory The risks and benefits of progressive maximal cardiopulmonary exercise testing were explained to the patient. Informed, written consent was obtained prior to the start of the procedure. The patient was exercised to a symptom-limited maximum with a progressively increasing workload protocol. Continuous oxygen saturation, ECG and gas analysis were performed. Name: Francy Delarosa Study Date: 03/01/2025 Indication: Dysautonomia-like Disorder Referring Provider: Courtney Torres MD Age: 24 yo Weight: 71 kg Height: 163 cm Gender: Female Exercise Capacity: Cycle ergometry was performed for 2:00 minutes. The protocol consisted of a 15 W/minute ramp protocol up to a workload of 28 Mcgill. The test was stopped due to shortness of breath. The peak oxygen uptake was 0.5 L/min (7.6 ml/kg/min, 27% predicted). The patient experienced shortness of breath leading to early termination of the test. Cardiovascular Performance: Heart rate was 71 bpm at rest. Heart rate at maximum exercise was 110 bpm (56% of maximal, age-predicted response). Chronotropic index was unable to be calculated. The resting blood pressure was 130/84 mmHg and increased to 163/101 mmHg at maximal exercise effort. O2 Pulse at rest was 4.3 mL and increased to 5.1 mL at peak exercise. Ventilatory threshold was unable to be determined. Resting ECG showed normal sinus rhythm at 71 bpm. Heart Rate [place] unable to be determined Pulmonary Performance/Ventilatory Response: The FVC and FEV1 were in the normal range. Pre-exercise spirometry demonstrated FEV1 3.42 Liters (105% of predicted), FVC of 4.85 Liters (127% of predicted), FEV1/FVC ratio of 82% predicted. Post-exercise spirometry was not performed. The respiratory rate was 12 bpm at rest and increased to 16 bpm at maximal exercise. Tidal volume at rest was 0.854 L and increased to 2.399 L at maximal exercise. Pulse oximetry remained stable above 100% throughout the exercise. No provoked exercise desaturation. The maximum achieved minute ventilation was 39 L/min (31% of the maximum voluntary ventilation). Breathing reserve at peak exercise was 87 L/min (Breathing [place] Ratio: 70%). VE/VCO2 slope unable to be obtained. Conclusion: Due to early termination of the test (after 1:30-2:00 minutes) unable to accurately interpret the findings. Can consider repeating in the future if the patient is able to exercise. Tay Barraza DO Political Research Scientistcommutator tester Cardiovascular Medicine Director of Sports Cardiology [facility] [place] us Courtney Torres MD PFT ORDERABLES Final Result * (ABNORMAL) Cardiopulmonary Exercise Test (03/01/2025 11:19 AM EDT) [id number] 4.85(A) 3.04 - 4.60 L VYAIRE PFT FEV1 PRE 3.42 2.62 - 3.88 L VYAIRE PFT FEV1/FVC PRE 70.53(A) 74.27 - 94.96 % VYAIRE PFT QSU57-45% PRE 2.34(A) 2.43 - 5.18 L/s VYAIRE PFT PEF PRE 8.68(A) 5.24 - 8.66 L/s VYAIRE PFT [id number] 126.25(A) 114.18 - 114.18 L/min VYAIRE PFT Anatomical Region Laterality Modality PFT 03/01/2025 10:2 6 AM EDT Narrative 03/01/2025 11:43 AM EDT Images from the original result were not included. [facility] Cardiopulmonary Exercise Testing Laboratory The risks and benefits of progressive maximal cardiopulmonary exercise testing were explained to the patient. Informed, written consent was obtained prior to the start of the procedure. The patient was exercised to a symptom-limited maximum with a progressively increasing workload protocol. Continuous oxygen saturation, ECG and gas analysis were performed. Name: Francy Delarosa Study Date: 03/01/2025 Indication: Dysautonomia-like Disorder Referring Provider: Courtney Torres MD Age: 24 yo Weight: 71 kg Height: 163 cm Gender: Female Exercise Capacity: Cycle ergometry was performed for 2:00 minutes. The protocol consisted of a 15 W/minute ramp protocol up to a workload of 28 Mcgill. The test was stopped due to shortness of breath. The peak oxygen uptake was 0.5 L/min (7.6 ml/kg/min, 27% predicted). The patient experienced shortness of breath leading to early termination of the test. Cardiovascular Performance: Heart rate was 71 bpm at rest. Heart rate at maximum exercise was 110 bpm (56% of maximal, age-predicted response). Chronotropic index was unable to be calculated. The resting blood pressure was 130/84 mmHg and increased to 163/101 mmHg at maximal exercise effort. O2 Pulse at rest was 4.3 mL and increased to 5.1 mL at peak exercise. Ventilatory threshold was unable to be determined. Resting ECG showed normal sinus rhythm at 71 bpm. Heart Rate [place] unable to be determined Pulmonary Performance/Ventilatory Response: The FVC and FEV1 were in the normal range. Pre-exercise spirometry demonstrated FEV1 3.42 Liters (105% of predicted), FVC of 4.85 Liters (127% of predicted), FEV1/FVC ratio of 82% predicted. Post-exercise spirometry was not performed. The respiratory rate was 12 bpm at rest and increased to 16 bpm at maximal exercise. Tidal volume at rest was 0.854 L and increased to 2.399 L at maximal exercise. Pulse oximetry remained stable above 100% throughout the exercise. No provoked exercise desaturation. The maximum achieved minute ventilation was 39 L/min (31% of the maximum voluntary ventilation). Breathing reserve at peak exercise was 87 L/min (Breathing [place] Ratio: 70%). VE/VCO2 slope unable to be obtained. Conclusion: Due to early termination of the test (after 1:30-2:00 minutes) unable to accurately interpret the findings. Can consider repeating in the future if the patient is able to exercise. Tay Barraza DO Political Research Scientistcommutator tester Cardiovascular Medicine Director of Sports Cardiology [facility] [place] Courtney Torres MD PFT ORDERABLES Final Result * Tryptase (02/16/2025 2:17 PM EDT) TRYPTASE 4.3 <=10.9 ug/L 02/19/2025 2:04 PM EDT [facility] ([employer]) Serum Venous blood specimen / Unknown 02/16/2025 2:17 PM EDT 02/16/2025 2:17 PM EDT Narrative [facility] ([employer]) - 02/19/2025 2:04 PM EDT Performed By: [facility] [address] [place] [address] Wallpaper Printer: Wilber Pardo MD, PhD CLIA Number: [id number] Courtney Torres MD LAB BLOOD ORDERABLES Final Re sult [facility] ([place]) [address] [place] [address] * (ABNORMAL) Ferritin, Serum (02/16/2025 2:17 PM EDT) Pathologist [facility] Ferritin, Serum 6(L) 13 - 150 ng/mL 02/16/2025 6:17 PM EDT [facility] Blood Venous blood specimen / Unknown Venipuncture / Unknown 02/16/2025 2:17 PM EDT 02/16/2025 2:17 PM EDT Courtney Torres MD LAB BLOOD ORDERABLES Final Re sult Performing Organization Address City/[facility]/ZIP Co de Phone Number [facility] [address] [place] [address] * Cortisol (02/16/2025 2:17 PM EDT) [facility] Cortisol 2.80 Before 10am: 3.7 - 19.4. After 5pm: 2.9 - 17.3 ug/dL 02/16/2025 6:36 PM EDT [facility] Comment:Testing performed on Verma Design Assembler, standardized against RETIREMENT Reference Standard concentration values assigned by LC-MS/MS and verified by BCR 192 and BCR 193 certified reference materials. Blood Venous blood specimen / Unknown Venipuncture / Unknown 02/16/2025 2:17 PM EDT 02/16/2025 2:17 PM EDT Courtney Torres MD LAB REF LAB BLOOD AND FLUID O RD Final Result Performing Organization Address City/[facility]/ZIP Co de Phone Number [facility] [address] [place] [address] * Catecholamines, fractionated, plasma (02/16/2025 2:17 PM EDT) Pathologist [facility] CATECHOLAMINES, INTERP See Note 02/27/2025 12:36 AM EDT [facility] ([facility]) DOPAMINE <130 <=240 pmol/L 02/27/2025 12:36 AM EDT [facility] ([facility]) EPINEPHRINE 167 <=330 pmol/L 02/27/2025 12:36 AM EDT [facility] ([facility]) NOREPINEPHRINE 1597 1050 - 4800 pmol/L 02/27/2025 12:36 AM EDT [facility] ([facility]) Blood Venous blood specimen / Unknown Venipuncture / Unknown 02/16/2025 2:17 PM EDT 02/16/2025 2:17 PM EDT Narrative [facility] ([facility]) - 02/27/2025 12:36 AM EDT INTERPRETIVE INFORMATION:Epinephrine Seated (15 min) less than or equal to 330 pmol/L Supine (30 min) less than or equal to 265 pmol/L INTERPRETIVE INFORMATION: Norepinephrine Seated (15 min) 1050 - 4800 pmol/L Supine (30 min) 680 - 3100 pmol/L INTERPRETIVE INFORMATION: Dopamine Seated (15 min) less than or equal to 240 pmol/L Supine (30 min) less than or equal to 240 pmol/L INTERPRETIVE INFORMATION: Catecholamines Panel, Plasma Small increases in catecholamines (less than 2 times the upper reference limit) are usually the result of physiological stimuli, drugs, or improper specimen collection. Significant elevation of one or more catecholamines (2 or more times the upper reference limit) is associated with an increased probability of a neuroendocrine tumor. Measurement of plasma or urine fractionated metanephrines provides better diagnostic sensitivity than measurement of catecholamines. Lower catecholamine concentrations are observed in specimens collected from supine adults. To convert to picograms per milliliter (pg/mL), multiply the reported concentration for Dopamine by 0.153, Epinephrine by 0.183, and Norepinephrine by 0.169. Access complete set of age- and/or gender-specific reference intervals for this test in the [facility] Laboratory Test Directory ([employer]). This test was developed and its performance characteristics determined by [facility]. It has not been cleared or approved by the US Food and Drug Administration. This test was performed in a CLIA certified laboratory and is intended for clinical purposes. Performed By: [facility] [address] [place] [address] Wallpaper Printer: Wilber Pardo MD, PhD CLIA Number: [id number] us Courtney Torres MD LAB BLOOD ORDERABLES Final Re sult [facility]) [address] [place] [address] documented in this encounter Visit Diagnoses Diagnosis Syncope and collapse- Primary Dysautonomia-like disorder Dysautonomia-like disorder documented in this encounter Additional Health Concerns Active Problems Noted Date Diagnosed Date CPM S22 PP LABOR (OBSTETRICS) 02/24/2024 Assessment Noted Time PHQ-9 Depression Total Score: 2 12/16/19 2:22 PM EDT A fall risk assessment has been complete d for the patient 02/16/2025 1:02 PM EDT A Body Mass Index follow-up plan has been documented for the patient 02/16/2025 2:37 PM EDT documented as of this encounter Care Teams Feedlot Manager Relationship Specialty Start Date End Date Rey Wyatt MD [address] [place] [address] PCP - General 11/16/24 Angela Oleary, RN [facility] Registered Nurse Cardiology 02/17/24 documented as of this encounter
--- OUTSIDE RECORDS SUMMARY | 2025-03-01 10:13 | XMS_ITS | Encounter Summary ---
Author Organization Healthcare Address [address] [place] [address] Care Team Providers Care Retail Loss Prevention Specialist Name Role Phone Angela Oleary RN Unavailable Unavailable Rey Wyatt MD Primary Care Provider [phone] Encounter Details Date Type Department Care Team (Latest Contact Info) Description 03/01/2025 10:13 AM EDT - 03/01/2025 11:59 PM EDT Hospital Encounter [facility] Pulmonary Function Testing [address] [place] [address] Dysautonomia-like disorder Discharge Disposition: Home or Self [...] often do you attend chur ch or sabianism services? Never 02/22/2024 Do you [...] Recorded Patient Health Questionnaire-2 Score 0 12/15/2024 [facility] of Occupat ional Health - Occupational Stress [...] in a mcfp (including now)? No 02/09/2024 Helen Depression Scale Answer Date Recorded Helen Depression Scale Total 6 08/08/2024 The thought [...] drink first t casi in the morning (EYE-INTERLOCKING INSTALLER) to steady your nerves or to [...] capsule 1 07/18/2024 Blood Glucose Monitoring Suppl (Peppercornuch Verio Reflect) w/Device kit 04/14/2024 cefdinir (Omnicef) [...] mild pain. 30 tablet 1 07/18/2024 Lancets (Procurics Delica Plus [id number]) [facility] 04/14/2024 levothyroxine (Synthroid, Levoxyl) 25 MCG tablet [...] nausea or vomiting. 20 tablet 5 12/30/2024 Procurics VerQRuso test strip 1 each by Other route [...] every 6 hours as needed. sodium chloride (Meriwether Nasal [place]) 0.65 % nasal spray Administer 1 spray into each nostril if needed for congestion. 30 mL 12 04/12/2024 Ventolin HFA 108 (90 Base) MCG/ACT inhaler 10/05/2024 documented as of this encounter Plan of Treatment Upcoming Encounters Date Type Department Care Team (Late st Contact Info) Description 03/15/2025 3:30 PM EDT Consult [facility] [address], 1st [place] [address] Kendy Sanchez APRN [address] [facility] [address] [place] [address] 04/04/2025 4:00 PM EDT Office Visit [facility] Medicine Specialties [address], 2nd [place] [address] Zia Hollis MD [address] [place] [address] 04/17/2025 2:00 PM EDT Office Visit [facility] Medicine Specialties [address], 2nd [place] [address] Silverio Tam PA [address] [place] [address] 06/19/2025 8:00 AM EST Office Visit [facility] [place] [address] [facility], [address] [place] [address] Courtney Torres MD [address] [facility] [address] [place] [address] documented as of this encounter [...] from the original result were not included. [facility] Cardiopulmonary Exercise Testing Laboratory The risks and [...] sinus rhythm at 71 bpm. Heart Rate Baldwin unable to be determined Pulmonary Performance/Ventilatory Response: [...] at peak exercise was 87 L/min (Breathing Baldwin Ratio: 70%). VE/VCO2 slope unable to be obtained. Conclusion: Due to early termination of the test (after 1:30-2:00 minutes) unable to accurately interpret the findings. Can consider repeating in the future if the patient is able to exercise. Tay Barraza DO School Based Therapistsenior engineering team leader Cardiovascular Medicine Director of Sports Cardiology [facility] [place] Courtney Torres MD PFT ORDERABLES Final Result * (ABNORMAL) Cardiopulmonary Exercise Test (03/01/2025 11:19 AM EDT) PMA1BVZ 4.85(A) 3.04 - 4.60 L VYAIRE PFT FEV1 PRE 3.42 2.62 - 3.88 L VYAIRE PFT FEV1/FVC PRE 70.53(A) 74.27 - 94.96 % VYAIRE PFT FSS76-45% PRE 2.34(A) 2.43 - 5.18 L/s VYAIRE PFT PEF PRE 8.68(A) 5.24 - 8.66 L/s VYAIRE PFT [id number] 126.25(A) 114.18 - 114.18 L/min VYAIRE PFT Anatomical Region Laterality Modality PFT 03/01/2025 10:2 6 AM EDT Narrative 03/01/2025 11:43 AM EDT Images from the original result were not included. [facility] Cardiopulmonary Exercise Testing Laboratory The risks and [...] sinus rhythm at 71 bpm. Heart Rate Baldwin unable to be determined Pulmonary Performance/Ventilatory Response: [...] at peak exercise was 87 L/min (Breathing Baldwin Ratio: 70%). VE/VCO2 slope unable to be obtained. Conclusion: Due to early termination of the test (after 1:30-2:00 minutes) unable to accurately interpret the findings. Can consider repeating in the future if the patient is able to exercise. Tay Barraza DO School Based Therapistsenior engineering team leader Cardiovascular Medicine Director of Sports Cardiology [facility] [place] Courtney Torres MD PFT ORDERABLES Final [...] documented as of this encounter Care Teams Retail Loss Prevention Specialist Relationship Specialty Start Date End Date Rey Wyatt MD [address] [place] [address] PCP - General 11/16/24 Angela Oleary, RN [facility] Registered Nurse Cardiology 02/17/24 documented as of this encounter
--- OUTSIDE RECORDS SUMMARY | 2025-03-11 10:45 | XMS_ITS | Encounter Summary ---
Author Organization Healthcare Address [address] [place] [address] Care Team Providers Care Enologist Name Role Phone Angela Oleary RN Unavailable Unavailable Rey Wyatt MD Primary Care Provider [phone] Encounter Details Date Type Department Care Team (Latest Contact Info) Description 03/01/2025 Travel Social History Tobacco Use Types Packs/Day [...] you attend [facility] or quaker services? Never 02/22/2024 Do you [...] 12/15/2024 [facility] of Occupat ional Health - [...] in a long-term (including now)? No 02/09/2024 [place] Depression Scale Answer Date Recorded [place] Depression Scale Total 6 08/08/2024 The thought [...] drink first t casi in the morning (EYE-CAMPAIGN ANALYST) to steady your nerves or to [...] Info) Description 03/15/2025 3:30 PM EDT Consult [place] [facility] [address], 1st [place] [address] Kendy Sanchez, CASH ACCOUNTANT [address] [place] [address] 04/04/2025 4:00 PM EDT Office Visit [facility] Medicine Specialties [address], 2nd [place] [address] Zia Hollis MD [address] [place] [address] 04/17/2025 2:00 PM EDT Office Visit [facility] Medicine Specialties [address], 2nd [place] [address] Silverio Tam PA [address] [place] [address] 06/19/2025 8:00 AM EST Office Visit [facility] [place] [address], [address] [place] [address] Courtney Torres MD [address] [place] [address] documented as of this encounter [...] documented as of this encounter Care Teams Enologist Relationship Specialty Start Date End Date Rey Wyatt MD [address] [facility] [address] [place], [place] [id number] PCP - General 11/16/24 Angela Oleary, RN [facility] Registered Nurse Cardiology 02/17/24 documented as of this encounter
--- OUTSIDE RECORDS SUMMARY | 2025-03-11 10:45 | XMS_ITS | Encounter Summary ---
Author Organization Healthcare Address [address] [place] [address] Care Team Providers Care Vascular Technologist Name Role Phone Angela Oleary RN Unavailable Unavailable Rey Wyatt MD Primary Care Provider [phone] Encounter Details Date Type Department Care Team (Latest Contact Info) Description 02/15/2025 Travel Social History Tobacco Use Types Packs/Day [...] week 02/22/2024 How often do you attend [facility] or adventist services? Never 02/22/2024 Do [...] 12/15/2024 [facility] of Occupat ional Health - Occupational [...] in a fdc (including now)? No 02/09/2024 [place] Depression Scale Answer Date Recorded [place] Depression Scale Total 6 08/08/2024 The thought [...] first t casi in the morning (EYE-TRACK HOE OPERATOR) to steady your nerves or to [...] Consult [place] [facility] [address], 1st [place] [address] Kendy Sanchez, UI DEVELOPER DESIGNER [address] [place] [address] 04/04/2025 4:00 PM EDT [facility] Medicine Specialties [address], [address] [place] [address] Zia Hollis MD [address] [place] [address] 04/17/2025 2:00 PM EDT Office Visit [facility] Medicine Specialties [address], 2[address] [place] [address] Silverio Tam PA [address] [place] [address] 06/19/2025 8:00 AM EST Office Visit [facility] [place] [address], [address] [place] [address] Courtney Torres MD [address] [place] [address] documented as of this encounter [...] documented as of this encounter Care Teams Vascular Technologist Relationship Specialty Start Date End Date Rey Wyatt MD [address] [facility] [address] [place], [place] [id number] PCP - General 11/16/24 Angela Oleary, RN [facility] Registered Nurse Cardiology 02/17/24 documented as of this encounter
--- OUTSIDE RECORDS SUMMARY | 2025-03-11 10:45 | XMS_ITS | Encounter Summary ---
Author Organization [facility] Address [address] [place] [address] Care Team Providers Care Panel Edge Painter Name Role Phone Provider, No Known Primary Care Provider Unavail able Encounter Details Date Type Department Care Team (Latest Contact Info) Description 01/10/2025 Travel Social History Tobacco Use Types Packs/Day Years Used Date Smoking Tobacco: Every Day Cigarettes 1 4.6 Started: 2020 Smokeless Tobacco: Never Alcohol Use Standard Drinks/Week Comments Not Currently [...] on file documented as of this encounter Visit Diagnoses Not on filedocumented in this encounter Care Teams Panel Edge Painter Relationship Specialty Start Date End Date Provider, No Known [facility] [place] [address] PCP - General 02/08/24 documented as of this encounter
--- OUTSIDE RECORDS SUMMARY | 2025-03-11 10:45 | XMS_ITS | Encounter Summary ---
Author Organization Healthcare Address [address] [place] [address] Care Team Providers Care Director Of Operations Home Health Name Role Phone Molly Louis MD Primary Care Provider [phone] Angela Oleary RN Unavailable Unavailable Rey Wyatt MD Primary Care Provider [phone] Reason for Visit * Reason Onset Date Comments Med Refill 03/23/2024 Encounter Details Date Type Department Care Team ([facility] Contact Info) Description 03/23/2024 Refill Medical Office Building Obstetrics and Gynecology [address] [facility], [address] [place] [address] Shalonda Davies, FARM PRODUCT PURCHASER [address] [facility] [address] [place] [address] Social History Tobacco Use Types [...] How often do you attend chur or gnosticist services? Never 02/22/2024 Do you [...] Recorded Patient Health Questionnaire-2 Score 0 02/17/2024 [facility] of Occupat ional Health - Occupational [...] a nursing home (including now)? No 02/09/2024 [place] Depression Scale Answer Date Recorded [place] Depression Scale Total 8 02/22/2024 The thought [...] drink first t casi in the morning (EYE-CONCEPTOR) to steady your nerves or to get [...] Patient already has refill on file. Luh Keenan RN documented in this encounter Plan of Treatment Upcoming Encounters Date Type Department Care Team (Late st Contact Info) Description 03/15/2025 3:[address] [facility] [address], 1st [place] [address] Kendy Sanchez APRN [address] [place] [address] 04/04/2025 4:00 PM EDT Office Visit [facility] [place] Special[facility] [address], 2nd [place] [address] Zia Hollis MD [address] [place] [address] 04/17/2025 2:00 PM EDT Office Visit [facility] [address], 2nd [place] [address] Silverio Tam, PA [address] [facility] [address] [place] [address] 06/19/2025 8:00 AM EST Office Visit [facility] [place] [address], [address] [place] [address] Courtney Torres MD [address] [place] [address] documented as of this encounter [...] of this encounter Care Teams Director Of Operations Home Health Relationship Specialty Start Date End Date Molly Louis MD [address] [place], [place] [id number] PCP - General Family Medicine 02/09/24 11/15/24 Rey Wyatt MD [address] [address] PCP - General 11/16/24 Angela Oleary, RN [facility] Registered Nurse Cardiology 02/17/24 documented as of this encounter
--- OUTSIDE RECORDS SUMMARY | 2025-03-11 10:45 | XMS_ITS | Clinical Summary ---
Author Organization [facility] Address [address] [place] [address] Care Team Providers Care Instructor Technical Training Name Role Phone Provider, No Known Primary Care Provider Unavail able Allergies Active Allergy Reactions Criticality Noted Date Comments Amoxicillin-Pot Clavulanate Swelling High 01/11/20 Swelling and rash Penicillin G Swelling High 01/10/2025 Swelling and rash Medications acetaminophen (TYLENOL) 325 MG tablet Take 1 tablet by mouth As Needed. Active busPIRone (BUSPAR) 5 MG tablet Take 1 tablet by mouth every night at bedtime. 5 Active cholecalciferol (VITAMIN D3) 25 MCG (1000 UT) tablet Take 4 tablets by mouth Daily. 5 Active famotidine (PEPCID) 20 MG tablet Take 1 tablet by mouth Daily As Needed. 5 Active fludrocortisone 0.1 MG tablet Take 1 tablet by mouth Daily. 5 Active methIMAzole (TAPAZOLE) 10 MG tablet Take 1.5 tablets by mouth Daily. Active omeprazole (priLOSEC) 20 MG capsule Take 1 capsule by mouth Daily. 5 Active ondansetron ODT (ZOFRAN-ODT) [address] 1 tablet on the tongue As Needed. 5 Active propranolol (INDERAL) 10 MG tablet Take 2 tablets by mouth 3 (Three) Times a Day. Active simethicone (MYLICON) 80 MG chewable tablet Chew 1 tablet As Needed. Active sodium chloride 1 g tablet Take 1 tablet by mouth Daily. Active Encounters Date Type Department Care Team Description 01/10/2025 8:30 AM EDT Office Visit [facility] [address] [facility] [address] [place] [address] Saskia Garcia MD Hyperthyroidism (Primary Dx); Abnormal cortisol level 01/10/2025 Travel from Last 3 Months Family History Medical History Relation Name Comments Crohn's disease Brother 1 Liver disease Brother 2 Heart attack Father Stroke Father Wilm's tumor Father Autoimmune disease Mother Thyroid disease Mother Relation Name Status Comments Brother 1 Alive Brother 2 Alive Father Alive Mother Social History Tobacco Use Types Packs/Day Years [...] Mass Index 24.13 01/10/2025 8:40 AM EDT Plan of Treatment Health Maintenance Due Date Last Done Comments Annual Gynecologic Pelvic and Breast Exam 1998 HPV VACCINES (2 - 2-dose series) 11/27/2011 05/29/20 11 Pneumococcal Vaccine 0-49 (1 of 2 - PCV) 2017 PAP SMEAR 2019 TDAP/TD VACCINES (2 - Td or Tdap) 02/21/2020 010 COVID-19 Vaccine (2 - season) 2024 ANNUAL PHYSICAL 01/10/2025 INFLUENZA VACCINE 04/26/2025 04/29/2023 HEPATITIS C SCREENING Completed 02/07/2024 Procedures Procedure Name Priority Date/Time Associated Diagnosis Comments SCANNED - LABS 01/19/2025 from Last 3 Months Results * LABS SCANNED (01/19/2025) us Saskia Garcia MD LAB BLOOD ORDERABLES Final Resu lt from Last 3 Months Insurance MEDICAID [place] Care Teams Instructor Technical Training Relationship Specialty Start Date End Date Provider, No Known [facility] [place] [address] PCP - General 02/08/24
--- OUTSIDE RECORDS SUMMARY | 2025-03-11 10:45 | XMS_ITS | Encounter Summary ---
Author Organization Healthcare Address [address] [place] [address] Care Team Providers Care Color Expert Name Role Phone Angela Oleary RN Unavailable Unavailable Rey Wyatt MD Primary Care Provider [phone] Encounter Details Date Type Department Care Team (Latest Contact Info) Description 02/16/2025 Travel Social History Tobacco Use Types Packs/Day [...] week 02/22/2024 How often do you attend [facility] or congregational services? Never 02/22/2024 Do you belong to any clubs o r organizations such as shinto groups, unions, fraternal or athletic groups, or [...] Recorded Patient Health Questionnaire-2 Score 0 12/15/2024 [facility] of Occupat ional Health [...] in a custodial (including now)? No 02/09/2024 [place] Depression Scale Answer Date Recorded [place] Depression Scale Total 6 08/08/2024 The thought [...] drink first t casi in the morning (EYE-CHILDREN'S AUTHOR) to steady your nerves or to get [...] [place] [facility] [address], 1st [place] [address] Kendy Sanchez, WASH OPERATOR [address] [place] [address] 04/04/2025 4:00 PM EDT Office Visit [facility] Medicine Specialties [address], [address] [place] [address] Zia Hollis MD [address] [place] [address] 04/17/2025 2:00 PM EDT Office Visit [facility] Medicine Specialties [address], [address] [place] [address] Silverio Tam PA [address] [place] [address] 06/19/2025 8:00 AM EST Office Visit [facility] [place] [address], [address] [place] [address] Courtney Torres MD [address] [place] [address] documented as of this encounter [...] documented as of this encounter Care Teams Color Expert Relationship Specialty Start Date End Date Rey Wyatt MD [address] [facility] [address] [place], [place] [id number] PCP - General 11/16/24 Angela Oleary, RN [facility] Registered Nurse Cardiology 02/17/24 documented as of this encounter
--- OUTSIDE RECORDS SUMMARY | 2025-03-11 10:46 | XMS_ITS | Encounter Summary ---
Author Organization Healthcare Address [address] [place] [address] Care Team Providers Care Data Governance Analyst Name Role Phone Molly Louis MD Primary Care Provider [phone] Angela Oleary RN Unavailable Unavailable Rey Wyatt MD Primary Care Provider [phone] Reason for Visit * Reason Onset Date Comments Med Refill 03/03/2024 Encounter Details Date Type Department Care Team ([facility] Contact Info) Description 03/03/2024 Refill Medical Office Building Obstetrics and Gynecology [address] [facility], [address] [place] [address] Earle Cochran MD [address] [facility] [address] [place] [address] Supervision of high risk in [...] How often do you attend chur or taoism services? Never 02/22/2024 Do you [...] Recorded Patient Health Questionnaire-2 Score 0 02/17/2024 [facility] of Occupat ional Health - Occupational [...] in a chcf (including now)? No 02/09/2024 [place] Depression Scale Answer Date Recorded [place] Depression Scale Total 8 02/22/2024 The [...] requesting to speak with a nurse- see [facility] for details about symptoms she is experiencing. * Telephone Encounter - Luh Keenan RN - 03/04/2024 1:56 PM EDT Patient has refills on file. Needs to call pharmacy. Luh Z Shlomo, RN documented in this encounter Plan of Treatment Upcoming Encounters Date Type Department Care Team (Late st Contact Info) Description 03/15/2025 3:30 PM EDT Consult [facility] [address], [address]st [place] [address] Kendy Sanchez APRN [address] [place] [address] 04/04/2025 4:00 PM EDT Office Visit [facility] Specialties [address], [address] [place] [address] Zia Hollis MD [address] [place] [address] 04/17/2025 2:00 PM EDT Office Visit [facility] [address], [address]nd [place] [address] Silverio Tam PA [address] [place] [address] 06/19/2025 8:00 AM EST Office Visit [facility] [place] [address] [place] [address] Courtney Torres MD [address] [place] [address] documented as of this encounter [...] as of this encounter Care Teams Data Governance Analyst Relationship Specialty Start Date End Date Molly Louis MD [address] [place] [address] PCP - General Family Medicine 02/09/24 11/15/24 Rey Wyatt MD [address] [place], [place] [id number] PCP - General 11/16/24 Angela Oleary, RN [facility] Registered Nurse Cardiology 02/17/24 documented as of this encounter
--- OUTSIDE RECORDS SUMMARY | 2025-03-11 10:46 | XMS_ITS | Clinical Summary ---
Author Organization [facility] Address [address] [place] [address] Care Team Providers Care Mechanical System Technician Name Role Phone Angela Oleary RN Unavailable Unavailable Rey Wyatt MD Primary Care Provider [phone] Allergies Active Allergy Reactions Criticality Noted Date Comments Amoxicillin-Pot Clavulanate Other - please document in the comment field,Rash,Swelling High 06/24/2022 Hydroxyzine Palpitations Low 02/16/2025 Diphenhydramine Palpitations Low 02/16/2025 Betamethasone Other - please document in the [...] day. 30 packet 1 03/16/20 24 Active Vit-Fe Fumarate-FA ( Vitamins) 28-0.8 MG tablet Take 1 tablet by mouth 1 (one) time each day. 30 tablet 11 03/17/20 24 025 Active sodium chloride ([place] Nasal Jeddo) 0.65 % nasal spray Administer 1 spray into each nostril if needed for congestion. 30 mL 12 04/12/20 24 Active Blood Glucose Monitoring Suppl (OneTouch Verio Reflect) w/Device kit 04/14/20 24 Active OneTouch Verio test strip 1 each by Other route if needed. 04/14/20 24 Active Lancets (OneTouch Delica Plus [id number]) [facility] [place] 04/14/20 24 Active ibuprofen 600 MG tablet Take 1 tablet (600 mg) by mouth every 6 (six) hours if needed for mild pain. 30 tablet 1 07/18/20 24 Active senna-docusate (Codi-Colace) 8.6-50 MG tablet Take 1 tablet by mouth 1 (one) time each day. 30 tablet 1 07/18/20 24 Active acetaminophen (Tylenol) 325 MG capsule Take 2 capsules (650 mg) by mouth every 6 (six) hours if needed for mild pain. 30 capsule 1 07/18/20 24 Active ondansetron (Zofran) 4 MG tablet Take 1 tablet (4 mg) by mouth every 8 (eight) hours if needed for nausea or vomiting. 3 tablet 5 07/18/20 24 Active busPIRone (Buspar) 5 MG tablet Take 1 [...] mouth daily. 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 20 tablet 5 12/31/19 Active levothyroxine (Synthroid, Levoxyl) 25 MCG tablet Take 1 tablet by mouth daily. 02/11/20 Active simethicone (Mylicon) 80 MG chewable tablet Chew 1 tablet every 6 hours as needed. Active oral electrolytes (Thermotabs) tablet Take 1 tablet by mouth 2 times a day. 60 tablet 1 02/17/20 Active Hospital, Clinic, or Other Facility Administered Medication [...] Encounters Date Type Department Care Team Description 03/01/2025 10:13 AM EDT - 03/01/2025 11:59 PM EDT Hospital Encounter [facility] Pulmonary Function Testing [address] [place] [address] Dysautonomia-like disorder Discharge Disposition: Home or Self Care 03/01/2025 Travel 02/24/2025 Travel 02/16/2025 1:20 PM EDT Office Visit [facility] [place] [address], [address] [place] [phone] Courtney Torres MD Syncope and collapse (Primary Dx); Dysautonomia-like disorder 02/16/2025 Telephone [facility] [place] [place] [address], [address] [place] [phone] None, None 02/16/2025 Travel 02/15/2025 Travel 01/18/2025 Results Follow-Up [facility] T[facility] Endocrinology [address] [place] [address] Abundio Kyle 01/17/2025 6:36 AM EDT - 01/17/2025 11:59 PM EDT Hospital Encounter [facility] Endoscopy [address] [place] [address] Cody Barnett MD Abdominal pain, epigastric; Diarrhea, unspecified type; Weight loss; Hematochezia Discharge Disposition: Home or Self Care 01/17/2025 Travel 12/30/2024 Orders Only [place] [facility] [address], [address] [place] [address] Silverio Tam PA 12/28/2024 Orders Only [place] [facility] [address], [address] [place] [address] Silverio Tam PA Abdominal pain, epigastric (Primary Dx); Diarrhea, unspecified type; Weight loss; Hematochezia 12/28/2024 Results Follow-Up [facility] [address], [address] [place] [address] Estuardo Jon 12/28/2024 Orders Only [place] [facility] [address], [address] [place] [phone] Keya Minor RN Diarrhea, unspecified type 12/20/2024 Results Follow-Up [facility] [address], [address] [place] [phone] Silverio Tam PA 12/16/2024 Results Follow-Up [facility] [address] [place] [address] Abundio Kyle 12/15/2024 2:30 PM EDT Office Visit [facility] [address], [address] [place] [phone] Silverio Tam, PA Weight loss (Primary Dx); Abdominal pain, epigastric; Diarrhea, unspecified type; Postural orthostatic tachycardia syndrome (POTS); Hematochezia; Elevated fecal calprotectin; Urticaria; History of anesthesia reaction; Gastroesophageal reflux disease, unspecified whether esophagitis present; Gilbert's syndrome; Nausea and vomiting, unspecified vomiting type; BMI 23.0-23.9, adult 12/15/2024 Travel 12/09/2024 Orders Only [facility] 0 [facility], [address] [place] [phone] Silverio Tam, PA from Last 3 Months Immunizations Immunization Administration [...] Hypertension Father Sahil reynoso Stroke Father Sahil angeles Cancer Maternal Grandmother Melania sheridan Abnormal EKG Mother Avril fagan Autoimmune disease Mother Avril fagan Clotting disorder Mother Crystal cradang Depression Mother Crystal craft Immunodeficiency Mother Crystal [...] often do you attend chur ch or mosque services? Never 02/22/2024 Do you [...] a group home (including now)? 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 0 07/16/2024 CAGE Questionnaire Score 0 024 Utilities Answer Date Recorded In the past 12 months has th e [employer] gas, oil, or water [employer] threatened to shut off services in your [...] Pulse 71 02/16/2025 1:34 PM EDT Temperature 37.1 C (98.7 F) 01/17/2025 7:00 AM EDT Respiratory Rate 18 01/17/2025 7:00 AM EDT Oxygen Saturation 100% 02/16/2025 1:34 PM EDT Inhaled Oxygen Concentration - - Weight 69.9 kg (154 lb) 02/16/2025 12:56 PM EDT Height 167.6 cm (5' 6 ) 02/16/2025 12:56 PM EDT Body Mass Index 24.86 02/16/2025 12:56 PM EDT Plan of Treatment Upcoming Encounters Date Type Department Care Team (Late st Contact Info) Description 03/15/2025 3:30 PM EDT Consult [facility] [address], [address] [place] [address] Kendy Sanchez APRN [address] [place] [address] 04/04/2025 4:00 PM EDT Office Visit [facility] [address], [address] [place] [address] Zia Hollis MD [address] [place] [address] 04/17/2025 2:00 PM EDT Office Visit [facility] [address], [address] [place] [address] Silverio Tam PA [address] [place] [address] 06/19/2025 8:00 AM EST Office Visit [facility] [place] [address], [address] [place] [address] Courtney Torres MD [address] [place] [address] Health Maintenance Due Date Last Done Comments [facility]-/Child/Adol SDOH Screenings 1998 [facility]-IPV Vaccines (2 of 3 - 4-dose series) 05/24/2002 04/26/2002 [facility]-Varicella Vaccines (2 of 2 - 2-dose childhood series) 05/24/2002 07/06/2001 HPV Vaccines (2 - 2-dose series) 11/27/2011 05/29/2011 [facility]- SDOH Screenings 2016 [facility]-Adult SDOH Screenings 2016 [facility]-Hepatitis B Vaccines (1 of 3 - 19+ 3-dose series) 2017 [facility]-Pap Smear 2019 [facility]-DTaP,Tdap,and Td Vaccines (3 - Td or Tdap) 02/21/2020 02/20/2010, 04/26/2002 [facility]-VDEKU-12 Vaccine (2 - Jasmine risk series) 03/21/2021 02/21/2021 [facility]-Influenza Vaccine (#1) 2025 04/29/2023 [facility]-Depression Screening [...] Routine 03/01/2025 11:19 AM EDT Dysautonomia-like disorder CATECHOLAMINES, FRACTIONATED, PLASMA Routine 02/16/2025 2:17 PM EDT Dysautonomia-like disorder CORTISOL Routine 02/16/2025 2:17 PM EDT Dysautonomia-like disorder FERRITIN, SERUM Routine 02/16/2025 2:17 PM EDT Dysautonomia-like disorder TRYPTASE (SO) Routine 02/16/2025 2:17 PM EDT Dysautonomia-like disorder CAPSULE ENDOSCOPY Routine 01/19/2025 3:1 7 PM [...] loss Abdominal pain, epigastric Diarrhea, unspecified type HIV 1/2 ANTIBODY/ANTIGEN SCREEN WITH REFLEX TO HIV I/II DIFFERENTIATION Routine 04/18/2024 10:13 AM EDT Supervision of high risk in second trimester HEPATITIS C ANTIBODY - ED W/REFLEX TO HCV QUANT PCR STAT 02/07/2024 10:11 PM EDT from Last 3 Months or Most Recently Relevant to Health Maintenance Results * CPET ECG (03/01/2025 11:19 AM EDT) Anatomical Region Laterality Modality PFT 03/01/2025 10:4 9 AM EDT Narrative 03/01/2025 11:43 AM EDT Images from the original result were not included. [facility] Cardiopulmonary Exercise Testing Laboratory The risks [...] sinus rhythm at 71 bpm. Heart Rate Bolton unable to be determined Pulmonary Performance/Ventilatory Response: [...] at peak exercise was 87 L/min (Breathing Bolton Ratio: 70%). VE/VCO2 slope unable to be obtained. Conclusion: Due to early termination of the test (after 1:30-2:00 minutes) unable to accurately interpret the findings. Can consider repeating in the future if the patient is able to exercise. Tay Barraza DO [employer]/Womansludge filtration operator Cardiovascular Medicine Director of Sports Cardiology [facility] [place] Courtney Torres MD PFT ORDERABLES Final Result * (ABNORMAL) Cardiopulmonary Exercise Test (03/01/2025 11:19 AM EDT) [id number] 4.85(A) 3.04 - 4.60 L VYAIRE PFT FEV1 PRE 3.42 2.62 - 3.88 L VYAIRE PFT FEV1/FVC PRE 70.53(A) 74.27 - 94.96 % VYAIRE PFT DVE21-62% PRE 2.34(A) 2.43 - 5.18 L/s VYAIRE PFT PEF PRE 8.68(A) 5.24 - 8.66 L/s VYAIRE PFT RUX2VDD 126.25(A) 114.18 - 114.18 L/min VYAIRE PFT Anatomical Region Laterality Modality PFT 03/01/2025 10:2 6 AM EDT Narrative 03/01/2025 11:43 AM EDT Images from the original result were not included. [facility] Cardiopulmonary Exercise Testing Laboratory The risks [...] sinus rhythm at 71 bpm. Heart Rate Bolton unable to be determined Pulmonary Performance/Ventilatory Response: [...] at peak exercise was 87 L/min (Breathing Bolton Ratio: 70%). VE/VCO2 slope unable to be obtained. Conclusion: Due to early termination of the test (after 1:30-2:00 minutes) unable to accurately interpret the findings. Can consider repeating in the future if the patient is able to exercise. Tay Barraza DO Dryerman/Womansludge filtration operator Cardiovascular Medicine Director of Sports Cardiology [facility] [place] Courtney Torres MD PFT ORDERABLES Final Result * Catecholamines, fractionated, plasma (02/16/2025 2:17 PM EDT) CATECHOLAMINES, INTERP See Note 02/27/2025 12:36 AM EDT [facility] ([facility]) DOPAMINE <130 <=240 pmol/L 02/27/2025 12:36 AM EDT [facility] ([facility]) EPINEPHRINE 167 <=330 pmol/L 02/27/2025 12:36 AM EDT [facility] ([facility]) NOREPINEPHRINE 1597 1050 - 4800 pmol/L 02/27/2025 12:36 AM EDT [facility] ([facility]) Blood Venous blood specimen / Unknown Venipuncture / Unknown 02/16/2025 2:17 PM EDT 02/16/2025 2:17 PM EDT Narrative [facility] - 02/27/2025 12:36 AM EDT INTERPRETIVE INFORMATION:Epinephrine [...] reference intervals for this test in the Practice Management e-Tools Test Directory (Gradwell). This test was developed and its performance characteristics determined by [facility]. It has not been cleared or approved by the US Food and Drug Administration. This test was performed in a CLIA certified laboratory and is intended for clinical purposes. Performed By: [facility] [address] [place] [address] Batch Analyst: Wilber Pardo MD, PhD CLIA Number: [id number] Courtney Torres MD LAB BLOOD ORDERABLES Final Re sult [facility]) [address] [place], [place] [id number] * Tryptase (02/16/2025 2:17 PM EDT) TRYPTASE 4.3 <=10.9 ug/L 02/19/2025 2:04 PM EDT [facility]) Serum Venous blood specimen / Unknown 02/16/2025 2:17 PM EDT 02/16/2025 2:17 PM EDT Narrative [facility]) - 02/19/2025 2:04 PM EDT Performed By: [facility] [address] [place], [place] [id number] Batch Analyst: Wilber Pardo MD, PhD CLIA Number: [id number] Courtney Torres MD LAB BLOOD ORDERABLES Final Re sult Performing Organization Address City/[facility]/ZIP Co de Phone Number [facility] ([place]) [address] [place] [address] * (ABNORMAL) Ferritin, Serum (02/16/2025 2:17 PM EDT) Ferritin, Serum 6(L) 13 - 150 ng/mL 02/16/2025 6:17 PM EDT [facility] Blood Venous blood specimen / Unknown Venipuncture / Unknown 02/16/2025 2:17 PM EDT 02/16/2025 2:17 PM EDT Courtney Torres MD LAB BLOOD ORDERABLES Final Re sult Performing Organization Address [facility] Co de Phone Number [facility] [address] [place] [address] * Cortisol (02/16/2025 2:17 PM EDT) Cortisol 2.80 Before 10am: 3.7 - 19.4. After 5pm: 2.9 - 17.3 ug/dL 02/16/2025 6:36 PM EDT [facility] Comment:Testing performed on Verma Odd Piece Checker, standardized against LONG-TERM Reference Standard concentration values assigned by LC-MS/MS and verified by BCR 192 and BCR 193 certified reference materials. Blood Venous blood specimen / Unknown Venipuncture / Unknown 02/16/2025 2:17 PM EDT 02/16/2025 2:17 PM EDT Courtney Torres MD LAB REF LAB BLOOD AND FLUID O RD Final Result Performing Organization Address [facility] Co de Phone Number [facility] [address] [place] [address] * Capsule Endoscopy (01/19/2025 3:17 PM EDT) [...] - 4.3 pg/mL 01/18/2025 11:56 PM EDT [facility] ([place]) Blood Venous blood specimen / Unknown Venipuncture / Unknown 01/17/2025 8:47 AM EDT 01/17/2025 8:47 AM EDT Narrative [facility] ([place]) - 01/18/2025 11:56 PM EDT REFERENCE INTERVAL: Triiodothyronine, Free (Free T3) Access complete set of age- and/or gender-specific reference intervals for this test in the [facility] Test Directory (Gradwell). Performed By: [facility] [address] [place] [address] Batch Analyst: Wilber Pardo MD, PhD CLIA Number: [id number] us Saskia Garcia MD LAB BLOOD ORDERABLES Final Resul t [facility] ([facility]) [address] [place] [address] * Thyroid Stimulating Hormone Receptor Antibody (01/17/2025 8:47 AM EDT) Pathologist [facility] TSH Receptor Antibody <1.10 <=1.75 IU/L 01/19/2025 1:20 AM EDT [facility]) Serum Venous blood specimen / Unknown 01/17/2025 8:47 AM EDT 01/17/2025 8:47 AM EDT Narrative [facility]) - 01/19/2025 1:20 AM EDT Performed By: [facility] [address] [place] [address] Batch Analyst: Wilber Pardo MD, PhD CLIA Number: [id number] Saskia Garcia MD LAB BLOOD ORDERABLES Final Resul t [facility]) [address] [place] [address] * Thyroid stimulating immunoglobulin (01/17/2025 8:47 AM EDT) Pathologist [facility] TSI Result 0.11 <=0.54 IU/L 01/19/2025 12:49 AM EDT [facility] ([place]) Serum Venous blood specimen / Unknown 01/17/2025 8:47 AM EDT 01/17/2025 8:47 AM EDT Narrative [facility]) - 01/19/2025 12:49 AM EDT INTERPRETIVE [...] medical history, and other findings. Performed By: [facility] [address] [place] [address] Batch Analyst: Wilber Pardo MD, PhD CLIA Number: [id number] us Saskia Garcia MD LAB BLOOD ORDERABLES Final Resul t Performing Organization Address City/[facility] Co de Phone Number [facility] ([place]) [address] [place] [address] * TSH (01/17/2025 8:47 AM EDT) Only the most recent of2 resultswithin the time period is included. Thyroid [...] ORDERABLES Final Resu lt Performing Organization Address [facility] de Phone Number [facility] [address] [place] [address] * T4, free (01/17/2025 8:47 AM EDT) Only the most recent of2 resultswithin the time period is included. Free [...] ORDERABLES Final Resu lt Performing Organization Address City/[facility] Co de Phone Number [facility] [address] [place] [address] * XR Abdomen 1 View (12/28/2024 9:40 AM EDT) Anatomical Region Laterality Modality Body Digital Radiogra phy Result [facility] Estuardo Jon IMG XR PROCEDURES Final Result * Cytomegalovirus (CMV) Quantitative PCR (12/15/2024 3:29 PM EDT) Pathologist [facility] Cytomegalovirus (CMV) Quantitative Interpretation Not Detected Not Detected 12/19/2024 2:26 PM EDT [facility] Blood Venous blood specimen / Unknown Venipuncture / Unknown 12/15/2024 3:29 PM EDT 12/15/2024 3:30 PM EDT Narrative [facility] - 12/19/2024 2:26 PM EDT The [employer] M2000 CMV test is a Real Time [...] Final Res ult Performing Organization Address [facility]/ZIP Co de Phone Number [facility][1] [address] [place] [address] * T3 (12/15/2024 3:29 PM EDT) Pathologist [facility] T3, Serum 177 87 - 187 ng/dL 12/15/2024 4:54 PM EDT [facility] Blood Venous blood specimen / Unknown Venipuncture / Unknown 12/15/2024 3:29 PM EDT 12/15/2024 3:30 PM EDT [facility] LAB BLOOD ORDERABLES Final Res ult Performing Organization Address City/[facility]/ZIP Co de Phone Number [facility] [address] * Brayan-Holguin virus VCA, IgM (12/15/2024 3:29 PM EDT) Pathologist [facility] EBV ANTIBODY TO VIRAL CAPSID ANTIGEN IGM <10.0 0.0 - 43.9 U/mL 12/18/2024 11:09 AM EDT [facility] Time To [facility]) Blood Venous blood specimen / Unknown Venipuncture / Unknown 12/15/2024 3:29 PM EDT 12/15/2024 3:30 PM EDT Narrative [facility]) - 12/18/2024 11:09 AM EDT INTERPRETIVE INFORMATION: Brayan-Holguin Virus Antibody to Viral Capsid Antigen, IgM 35.9 U/mL or less.......Not Detected 36.0-43.9 U/mL..........Indeterminate - Repeat testing in 10-14 days may be helpful. 44.0 U/mL or greater....Detected Performed By: [facility] [address] [place] [address] Batch Analyst: Wilber Pardo MD, PhD CLIA Number: [id number] us [facility] LAB BLOOD ORDERABLES Final Res ult [facility] [address] [place] [address] * (ABNORMAL) Brayan Holguin IgG Ab (12/15/2024 3:29 PM EDT) Pathologist [facility] EBV ANTIBODY TO VIRAL CAPSID ANTIGEN IGG 185.0(H) 0.0 - 21.9 U/mL 12/18/2024 11:11 AM EDT [facility]) Blood Venous blood specimen / Unknown Venipuncture / Unknown 12/15/2024 3:29 PM EDT 12/15/2024 3:30 PM EDT Narrative [facility]) - 12/18/2024 11:11 AM EDT INTERPRETIVE INFORMATION: Brayan-Holguin Virus Antibody to Viral Capsid Antigen, IgG 17.9 U/mL or less.......Not Detected 18.0-21.9 U/mL..........Indeterminate - Repeat testing in 10-14 days may be helpful. 22.0 U/mL or greater....Detected Performed By: [facility] [address] [place] [address] Batch Analyst: Wilber Pardo MD, PhD CLIA Number: [id number] [facility] LAB BLOOD ORDERABLES Final Res ult Performing Organization Address [facility] Co de Phone Number [facility] ([place]) [address] [place] [address] * Prothrombin Time/INR (12/15/2024 3:29 PM EDT) Prothrombin Time 13.7 12.0 - 14.3 sec LAB COAGULATION METHOD 12/15/2024 5:05 PM EDT [facility] INR 1.0 0.9 - 1.1 LAB COAGULATION METHOD 12/15/2024 5:05 PM EDT [facility] Blood Venous blood specimen / Unknown Venipuncture / Unknown 12/15/2024 3:29 PM EDT 12/15/2024 3:30 PM EDT Narrative [facility] - 12/15/2024 5:05 PM EDT OPTIMAL INR RANGES FOR PATIENT ON ORAL ANTICOAGULANT THERAPY Prevention of venous thromboembolism INR 2.0 to 3.0 In patients with heart disease: Atrial fibrillation INR 2.0 to 3.0 Valvular heart disease INR 2.0 to 3.0 Tissue heart valves INR 2.0 to 3.0 Mechanical prosthetic valves INR 2.5 to 3.5 Prevention of recurrent OH INR 2.5 to 3.5 [facility] LAB BLOOD ORDERABLES Final Res ult Performing Organization Address City/[facility]/ZIP Co de Phone Number [facility] [address] [place] [address] * (ABNORMAL) CBC and Differential (12/15/2024 3:29 PM EDT) WBC Count 5.38 3.70 - 10.30 10*3/uL LAB HEMATOLOGY METHOD 12/15/2024 4:38 PM EDT [facility] RBC Count 4.81 3.90 - 5.20 10*6/uL LAB HEMATOLOGY METHOD 12/15/2024 4:38 PM EDT [facility] HGB 12.6 11.2 - 15.7 g/dL LAB HEMATOLOGY METHOD 12/15/2024 4:38 PM EDT [facility] HCT 39.7 34.0 - 45.0 % LAB HEMATOLOGY METHOD 12/15/2024 4:38 PM EDT [facility] Platelet Count 311 155 - 369 10*3/uL LAB HEMATOLOGY METHOD 12/15/2024 4:38 PM EDT [facility] MCV 83 79 - 98 fL LAB HEMATOLOGY METHOD 12/15/2024 4:38 PM EDT [facility] MCH 26.2 26.0 - 32.0 pg LAB HEMATOLOGY METHOD 12/15/2024 4:38 PM EDT [facility] MCHC 31.7 30.7 - 35.5 g/dL LAB HEMATOLOGY METHOD 12/15/2024 4:38 PM EDT [facility] RDW 12.2 11.5 - 14.5 % LAB HEMATOLOGY METHOD 12/15/2024 4:38 PM EDT [facility] MPV 11.2 8.8 - 12.5 fL LAB HEMATOLOGY METHOD 12/15/2024 4:38 PM EDT [facility] nRBC 0.0 <=0.0 per 100 WBCs LAB HEMATOLOGY METHOD 12/15/2024 4:38 PM EDT [facility] Differential Type Automated LAB HEMATOLOGY METHOD 12/15/2024 4:38 PM EDT [facility] Neutrophils % 61 % LAB HEMATOLOGY METHOD 12/15/2024 4:38 PM EDT [facility] Lymphocytes % 32 % LAB HEMATOLOGY METHOD 12/15/2024 4:38 PM EDT [facility] Monocytes % 5 % LAB HEMATOLOGY METHOD 12/15/2024 4:38 PM EDT [facility] Eosinophils % 1 % LAB HEMATOLOGY METHOD 12/15/2024 4:38 PM EDT [facility] Basophils % 1 % LAB HEMATOLOGY METHOD 12/15/2024 4:38 PM EDT [facility] Immature Granulocytes % 0 % LAB HEMATOLOGY METHOD 12/15/2024 4:38 PM EDT [facility] Neutrophils Absolute 3.33 1.60 - 6.10 10*3/uL LAB HEMATOLOGY METHOD 12/15/2024 4:38 PM EDT [facility] Lymphocytes Absolute 1.70 1.20 - 3.90 10*3/uL LAB HEMATOLOGY METHOD 12/15/2024 4:38 PM EDT [facility] Monocytes Absolute 0.25(L) 0.30 - 0.90 10*3/uL LAB HEMATOLOGY METHOD 12/15/2024 4:38 PM EDT [facility] Eosinophils Absolute 0.03 0.00 - 0.50 10*3/uL LAB HEMATOLOGY METHOD 12/15/2024 4:38 PM EDT [facility] Basophils Absolute 0.05 0.00 - 0.10 10*3/uL LAB HEMATOLOGY METHOD 12/15/2024 4:38 PM EDT [facility] Immature Granulocytes Absolute 0.02 0.00 - 0.06 10*3/uL LAB HEMATOLOGY METHOD 12/15/2024 4:38 PM EDT [facility] Blood Venous blood specimen / Unknown Venipuncture / Unknown 12/15/2024 3:29 PM EDT 12/15/2024 3:30 PM EDT Narrative [facility] - 12/15/2024 4:38 PM EDT Therapeutic decision making should be based on absolute values, rather than percentages. us [facility] LAB BLOOD ORDERABLES Final Res ult [facility] [address] [place] [address] * (ABNORMAL) Comprehensive Metabolic Panel, Plasma (12/15/2024 3:29 PM EDT) Glucose, Plasma 84 74 - 99 mg/dL 12/15/2024 4:54 PM EDT [facility] BUN, Plasma 8 7 - 21 mg/dL 12/15/2024 4:54 PM EDT [facility] Creatinine, Plasma 0.60 0.60 - 1.10 mg/dL 12/15/2024 4:54 PM EDT [facility] BUN/Creatinine Ratio 13 12/15/2024 4:54 PM EDT [facility] Sodium, Plasma 140 136 - 145 mmol/L 12/15/2024 4:54 PM EDT [facility] Potassium, Plasma 4.1 3.6 - 4.9 mmol/L 12/15/2024 4:54 PM EDT [facility] Chloride, Plasma 105 97 - 107 mmol/L 12/15/2024 4:54 PM EDT [facility] CO2, Plasma 21(L) 22 - 29 mmol/L 12/15/2024 4:54 PM EDT [facility] Anion Gap 14 6 - 16 mmol/L 12/15/2024 4:54 PM EDT [facility] Total Calcium, Plasma 9.4 8.9 - 10.2 mg/dL 12/15/2024 4:54 PM EDT [facility] Total Protein 8.1(H) 6.3 - 7.9 g/dL 12/15/2024 4:54 PM EDT [facility] Albumin, Plasma 4.6 3.5 - 5.2 g/dL 12/15/2024 4:54 PM EDT [facility] AST, Plasma 16 10 - 35 U/L 12/15/2024 4:54 PM EDT [facility] ALT, Plasma 23 10 - 35 U/L 12/15/2024 4:54 PM EDT [facility] Alkaline Phosphatase, Plasma 58 35 - 104 U/L 12/15/2024 4:54 PM EDT [facility] Total Bilirubin, Plasma 0.7 0.2 - 1.1 mg/dL 12/15/2024 4:54 PM EDT [facility] eGFRcr 127.1 mL/min/1.7 3m*2 12/15/2024 4:54 PM EDT [facility] Comment:Reported eGFRcr in m L/min/1.73m2 is based the CKD-EPI 2020 equation that does not use a race coefficient. Blood Venous blood specimen / Unknown Venipuncture / Unknown 12/15/2024 3:29 PM EDT 12/15/2024 3:30 PM EDT us Silverio CELESTE LAB BLOOD ORDERABLES Final Res ult Performing Organization Address City/[facility]/ZIP Co de Phone Number [facility] [address] [place] [address] * HIV 1 & 2 Antibody/Antigen Screen (04/18/2024 10:13 AM EDT) Pathologist [facility] HIV 1 & 2 Antibody/Antigen Screen Non Reactive Non Reactive 04/18/2024 12:07 PM EDT [facility] Comment:Screening for HIV 1 & 2 antibodies, and P24 antigen is NONREACTIVE. No confirmatory testing is required. Blood Venous blood specimen / Unknown Venipuncture / Unknown 04/18/2024 10:13 AM EDT 04/18/2024 10:13 AM EDT us Shalonda Davies APRN LAB BLOOD ORDERABLES Susannah oliva Result Performing Organization Address [facility] Co de Phone Number [facility] [address] [place] [address] * Hepatitis C Antibody - ED (02/07/2024 10:11 PM EDT) [facility] Hepatitis C Antibody Negative Negative 02/07/2024 11:11 PM EDT [facility] Blood Venous blood specimen / Unknown Venipuncture / Unknown 02/07/2024 10:11 PM EDT 02/07/2024 10:18 PM EDT us Mark Roger MD LAB BLOOD ORDERABLES Final Resu lt Performing Organization Address City/[facility] Co de Phone Number [facility] [address] [place] [address] from Last 3 Months or Most Recently [...] Patient has decision-making capacity? Yes Care Teams Mechanical System Technician Relationship Specialty Start Date End Date Rey Wyatt MD [address] [place], [place] [address] [address] [address] PCP - General 11/16/24 Angela Oleary, RN [facility] Registered Nurse Cardiology 02/17/24
--- OUTSIDE RECORDS SUMMARY | 2025-03-11 10:46 | XMS_ITS | Clinical Summary ---
Author Organization [employer] ([place], [place], [place], [place]) Address [address] [place] [address] Care Team Providers Care Steward/Stewardess Third Class Name Role Phone Molly Louis MD Primary Care Provider [phone] Allergies Active Allergy Reactions Criticality Noted Date [...] Date Guerrero rded Speak language other than Kinyarwanda at home Not on file 08/13/2023 Want [...] 10/04/2024 8:29 PM EDT Plan of Treatment Upcoming Encounters Date Type Department Care Team (Late st Contact Info) Description 04/17/2025 12:30 PM EDT Appointment [facility] Procedure Lab [address] [place] [address] Health Maintenance Due Date Last Done Comments Tobacco Cessation Counseling and Screening (12+) 2010 HIV Screening 2013 Hepatitis C Screening 2016 Pneumococcal Vaccine: 0-49 Y ears (1 of 2 - PCV) 2017 Lipid Panel 2018 Pap Smear 2019 DTAP/TDAP/TD VACCINES (3 - Td or Tdap) 02/21/2020, 04/26/2002 COVID-19 VACCINE (2 - season) 2024 Influenza Vaccine (#1) 2025 Medical Devices Implanted Type Area Boiler House Mechanic Device Identifier Shelf Expiration Date Model / Serial / Lot K-Wire [id number] - [id number] Implanted:Qty: 1 on 08/04/2022 by Rex Rene MD at [facility] IMPLANTS Right: Hand [employer]IA[employer] [id number] / / Wire K-Wire 1.6mm - [id number] Implanted:Qty: 1 on 08/04/2022 by Rex Rene MD at [facility] IMPLANTS Right: Hand BUCK MED GRP:BUCK MED TECH / / Insurance [facility] Advance Directives For more information, please contact: [phone] * Full Code (Latest Code Status on File) Date Activated Date Inactivated Comments 08/04/2022 6:03 AM 08/04/2022 11:35 AM Care Teams Steward/Stewardess Third Class Relationship Specialty Start Date End Date Molly Louis MD [address] [place] [address] [address] [place] [address] PCP - General 08/22/24
--- OUTSIDE RECORDS SUMMARY | 2025-03-11 10:46 | XMS_ITS | Encounter Summary ---
Author Organization Healthcare Address [address] [place] [address] Care Team Providers Care Bookseamer Blindstitch Name Role Phone Angela Oleary RN Unavailable Unavailable Rey Wyatt MD Primary Care Provider [phone] Encounter Details Date Type Department Care Team (Latest Contact Info) Description 02/24/2025 Travel Social History Tobacco Use Types Packs/Day [...] week 02/22/2024 How often do you attend [facility] or voodoo services? Never 02/22/2024 Do you belong to any clubs o r organizations such as restorationism groups, unions, fraternal or athletic groups, or [...] Recorded Patient Health Questionnaire-2 Score 0 12/15/2024 [facility] of Occupat ional Health - [...] in a usp (including now)? No 02/09/2024 Gays Depression Scale Answer Date Recorded Gays Depression Scale Total 6 08/08/2024 The thought [...] drink first t casi in the morning (EYE-CREDIT REVIEW MANAGER) to steady your nerves or to [...] Consult [place] [facility] [address], [address] [place] [address] Kendy Sanchez, MAINTENANCE MECHANIC MILLWRIGHT [address] [place] [address] 04/04/2025 4:00 PM EDT Office Visit [facility] Medicine Specialties [address], [address] [place] [address] Zia Hollis MD [address] [place] [address] 04/17/2025 2:00 PM EDT Office Visit [facility] Medicine Specialties [address], [address] [place] [address] Silverio Tam PA [address] [place] [address] 06/19/2025 8:00 AM EST Office Visit [facility] [place] [address], [address] [place] [address] Courtney Torres MD [address] [place] [address] documented as of this encounter [...] documented as of this encounter Care Teams Bookseamer Blindstitch Relationship Specialty Start Date End Date Rey Wyatt MD [address] [facility] [address] [place], [place] [phone] PCP - General 11/16/24 Angela Oleary, RN [facility] Registered Nurse Cardiology 02/17/24 documented as of this encounter
--- OUTSIDE RECORDS SUMMARY | 2025-03-11 10:46 | XMS_ITS | Encounter Summary ---
Author Organization Healthcare Address [address] [id number] Care Team Providers Care Countersinker Balance Screw Hole Name Role Phone Molly Louis MD Primary Care Provider [phone] Angela Oleary RN Unavailable Unavailable Rey Wyatt MD Primary Care Provider [phone] Reason for Visit * Reason Onset Date Comments Med Refill 07/19/2024 Encounter Details Date Type Department Care Team (Late st Contact Info) Description 07/19/[address], [address] [place] [address] Paris Marion MD [address] [id number] Social History Tobacco Use Types Packs/Day Years [...] How often do you attend chur or rastafarian services? Never 02/22/2024 Do you [...] Recorded Patient Health Questionnaire-2 Score 0 06/22/2024 [facility] of Occupat ional [facility] - Occupational Stress Questionnaire Answer Date [...] in a correction (including now)? No 02/09/2024 Allegh[place] Depression Scale Answer Date Recorded [place] Depression Scale Total 8 02/22/2024 The thought [...] drink first t casi in the morning (EYE-SPOT REMOVER) to steady your nerves or to get [...] Info) Description 03/15/2025 3:30 PM EDT Consult [facility] [address], [address] [place] [address] Kendy Sanchez APRN [address] [place] [address] 04/04/2025 4:00 PM EDT Office Visit [facility] Medicine Specialties [address], [address] [place] [address] Zia Hollis MD [address] [place] [address] 04/17/2025 2:00 PM EDT Office Visit [facility] [address], 2nd [place] [address] Silverio Tam PA [address] [place] [address] 06/19/2025 8:00 AM EST Office Visit [facility] [place] [address], [address] [place] [address] Courtney Torres MD [address] [place] [address] documented as of this encounter [...] documented as of this encounter Care Teams Countersinker Balance Screw Hole Relationship Specialty Start Date End Date Molly Louis MD [address] [place] [address] PCP - General Family Medicine 02/09/24 11/15/24 [place] [address] [place] [address] PCP - General 11/16/24 Angela Oleary RN [facility] Registered Nurse Cardiology 02/17/24 documented as of this encounter
--- OUTSIDE RECORDS SUMMARY | 2025-03-11 10:46 | XMS_ITS | Encounter Summary ---
Author Organization Healthcare Address [address] [place] [address] Care Team Providers Care Charhouse Worker Name Role Phone Angela Oleary RN Unavailable Unavailable Rey Wyatt MD Primary Care Provider [phone] Encounter Details Date Type Department Care Team (Late st Contact Info) Description 12/28/2024 Results Follow-Up [facility] Medicine Specialties [address], [address]nd [place] [address] Estuardo Jon [address] [place] [address] Social History Tobacco Use Types [...] Recorded Patient Health Questionnaire-2 Score 0 12/15/2024 [facility] of Occupat ional Health - Occupational Stress [...] in a chcf (including now)? No 02/09/2024 Josephine Depression Scale Answer Date Recorded Josephine Depression Scale Total 6 08/08/2024 The thought [...] first t casi in the morning (EYE-CORE ANALYST) to steady your nerves or to [...] Info) Description 03/15/2025 3:30 PM EDT [facility] [address], 1st [place] [address] Kendy Sanchez, TRISTAN [address] [place] [address] 04/04/2025 4:00 PM EDT Office Visit [facility] Medicine Specialties [address], [address] [place] [address] Zia Hollis MD [address] [place] [address] 04/17/2025 2:00 PM EDT Office Visit [facility] Specialties [address], 2nd [place] [address] Silverio Tam PA [address] [place] [address] 06/19/2025 8:00 AM EST Office Visit [facility] [place] [address], [address] [place] [address] Courtney Torres MD [address] [place] [address] documented as of this encounter [...] documented as of this encounter Care Teams Charhouse Worker Relationship Specialty Start Date End Date Rey Wyatt MD [address] [place] [address] PCP - General 11/16/24 Angela Oleary, RN [facility] Registered Nurse Cardiology 02/17/24 documented as of this encounter
--- OUTSIDE RECORDS SUMMARY | 2025-03-11 10:46 | XMS_ITS | Encounter Summary ---
Author Organization Healthcare Address [address] [place] [address] Care Team Providers Care Social Service Agency Director Name Role Phone Pcp, No Primary Care Provider UnavailMolly Newman MD Primary Care Provider [phone] Angela Oleary RN Unavailable Unavailable Rey Wyatt MD Primary Care Provider [phone] Encounter Details Date Type Department Care Team (Late Contact Info) Description 01/22/2024 Orders Only External Location [address] [place] [phone] Provider, External Social History Tobacco Use Types [...] Month) No 024 2:42 PM EDT Parmjit Rico RN 2. Non-Specific Active Suici keron Thoughts (Past 1 Month) No 01/23/2024 2:42 PM EDT Parmjit Rico, JANELL 6. Suicidal Behavior (Lifetime) No 4 2:42 PM EDT Parmjit Rico RN documented as of this encounter Plan of Treatment Upcoming Encounters Date Type Department Care Team (Late st Contact Info) Description 03/15/2025 3:30 PM EDT Consult [place] [facility] [address], [address]st [place] [address] Kendy Sanchez, COVER CUTTER [address] [place] [address] 04/04/2025 4:00 PM EDT Office Visit [facility] Medicine Specialties [address], [address] [place] [address] Zia Hollis MD [address] [place] [address] 04/17/2025 2:00 PM EDT Office Visit [facility] Medicine Specialties [address], 2nd [place] [address] Silverio Tam, PA [address] [place] [address] 06/19/2025 8:00 AM EST Office Visit [facility] [place] [address], [address] [place] [address] Courtney Torres MD [address] [place] [address] documented as of this encounter Procedures Procedure [...] documented as of this encounter Care Teams Social Service Agency Director Relationship Specialty Start Date End Date Pcp, No [address] [place] [address] PCP - General Family Medicine 01/22/24 02/08/24 Molly Louis MD [address] [place] [address] PCP - General Family Medicine 02/09/24 11/15/24 [place] [address] [place] [address] [place] [address] PCP - General 11/16/24 Angela Oleary, RN [facility] Registered Nurse Cardiology 02/17/24 documented as of this encounter
--- OUTSIDE RECORDS SUMMARY | 2025-03-11 10:46 | XMS_ITS | Encounter Summary ---
Author Organization Healthcare Address [address] [place] [address] Care Team Providers Care Nutrition Club Ambassador Name Role Phone Angela Oleary RN Unavailable Unavailable Rey Wyatt MD Primary Care Provider [phone] Encounter Details Date Type Department Care Team (Late st Contact Info) Description 12/20/2024 Results Follow-Up [facility] Medicine Specialties [address], 2nd [place] [address] Silverio Tam PA [address] [place] [address] Social History Tobacco Use Types [...] Recorded Patient Health Questionnaire-2 Score 0 12/15/2024 [facility] of Occupat ional Health - Occupational Stress [...] a senior care (including now)? No 02/09/2024 [place]non[place] Depression Scale Answer Date Recorded [place] Depression Scale Total 6 08/08/2024 The thought [...] drink first t casi in the morning (EYE-COMPOSITION WORKER) to steady your nerves or to [...] Info) Description 03/15/2025 3:30 PM EDT Consult [facility] [address], [address] [place] [address] Kendy Sanchez APRN [address] [place] [address] 04/04/2025 4:00 PM EDT Office Visit [facility] Medicine Specialties [address], [address] [place] [address] Zia Hollis MD [address] [place] [address] 04/17/2025 2:00 PM EDT Office Visit [facility] Medicine Specialties [address], [address] [place] [address] Silverio Tam PA [address] [place] [address] 06/19/2025 8:00 AM EST Office Visit [facility] [place] [address], [address] [place] [address] Courtney Torres MD [address] [place] [address] documented as of this encounter [...] documented as of this encounter Care Teams Nutrition Club Ambassador Relationship Specialty Start Date End Date Rey Wyatt MD [address] [place] [id number] PCP - General 11/16/24 Angela Oleary, RN [facility] Registered Nurse Cardiology 02/17/24 documented as of this encounter
--- OUTSIDE RECORDS SUMMARY | 2025-03-11 10:46 | XMS_ITS | Encounter Summary ---
Author Organization Healthcare Address [address] [place] [address] Care Team Providers Care Executive Vice President Name Role Phone Angela Oleary RN Unavailable Unavailable Rey Wyatt MD Primary Care Provider [phone] Encounter Details Date Type Department Care Team [...] do you attend [facility] or yazdanism services? Never 02/22/2024 Do [...] Recorded Patient Health Questionnaire-2 Score 0 12/15/2024 [facility] of Occupat ional [...] a group home (including now)? No 02/09/2024 [place] Depression Scale Answer Date Recorded [place] Depression Scale Total 6 08/08/2024 The thought [...] drink first t casi in the morning (EYE-TELEMEDICINE PHYSICIAN) to steady your nerves or to get [...] Consult [place] [facility] [address], [address] [place] [address] Kendy Sanchez, SENIOR PLANNING MANAGER [address] [place] [address] 04/04/2025 4:00 PM EDT Office Visit [facility] Medicine Specialties [address], [address] [place] [address] Zia Hollis MD [address] [place] [address] 04/17/2025 2:00 PM EDT Office Visit [facility] Medicine Specialties [address] [place] [address] Silverio Tam PA [address] [place] [address] 06/19/2025 8:00 AM EST Office Visit [facility] [place] [address], [address] [place] [address] Courtney Torres MD [address] [place] [address] documented as of this encounter [...] documented as of this encounter Care Teams Executive Vice President Relationship Specialty Start Date End Date Rey Wyatt MD [address] [facility] [address] [place], [place] [phone] PCP - General 11/16/24 Angela Oleary, RN [facility] Registered Nurse Cardiology 02/17/24 documented as of this encounter
--- OUTSIDE RECORDS SUMMARY | 2025-03-11 10:46 | XMS_ITS | Encounter Summary ---
Author Organization Healthcare Address [address] [place] [address] Care Team Providers Care Post Manager Name Role Phone Angela Oleary RN Unavailable Unavailable Rey Wyatt MD Primary Care Provider [phone] Encounter Details Date Type Department Care Team ([facility] st Contact Info) Description 02/16/2025 Telephone [facility] [place] [address] [facility], [address] [place] [address] None, None [address] [phone] Social History Tobacco Use Types Packs/Day Years [...] Health Questionnaire-2 Score 0 12/15/2024 [facility] of Occupat [...] in a mcfp (including now)? No 02/09/2024 Sumner Depression Scale Answer Date Recorded Sumner Depression Scale Total 6 08/08/2024 The thought [...] drink first t casi in the morning (EYE-BASKET OPERATOR) to steady your nerves or to [...] encounter Miscellaneous Notes * Telephone Encounter - Paris Thomas - 02/16/2025 3:52 PM EDT Clinical Concern/Question Reason for Call: Pt forgot to schedule a 3 mo follow up apt with Dr Bethea when she checked out. Pt said she was told to schedule it as a and would like for it to be after her 05/17 pulmonary function test. I was not able to find any apts in Apr. Best contact number: [phone] (home) Optimal time of day to reach caller: ANYTIME Additional comments/information from caller: None Note: Please do not reply to this message. Follow-up communication and further actions as a result of this message need to be communicated with the patient directly, if the patient is not active onMyChart. If the patient is active on MyChart, they will receive notification of the communication/outcome via Whatever. documented in this encounter Plan of Treatment Upcoming Encounters Date Type Department Care Team (Late st Contact Info) Description 03/15/2025 3:30 PM EDT Consult [facility] [address] 1st [place] [address] Kendy Sanchez APRN [address] [place] [address] 04/04/2025 4:00 PM EDT Office Visit [facility] Medicine Specialties [address], 2nd [place] [address] Zia Hollis MD [address] [place] [address] 04/17/2025 2:00 PM EDT Office Visit [facility] Medicine Specialties [address], 2nd [place] [address] Silverio Tam PA [address] [place] [address] 06/19/2025 8:00 AM EST Office Visit [facility] [place] [address] [facility], [address] [place] [address] Courtney Torres MD [address] [place] [address] documented as of this encounter [...] documented as of this encounter Care Teams Post Manager Relationship Specialty Start Date End Date Rey Wyatt MD [address] [facility] [address] [place] [phone] PCP - General 11/16/24 Angela Oleary, RN [facility] Registered Nurse Cardiology 02/17/24 documented as of this encounter
--- OUTSIDE RECORDS SUMMARY | 2025-03-11 10:46 | XMS_ITS | Referral Summary ---
Author Organization [employer] ([place], [place], [place], [place]) Address [address] [place] [address] Care Team Providers Care Condominium Property Manager Name Role Phone Molly Louis MD Primary Care Provider [phone] Allergies Active Allergy Reactions Criticality Noted Date [...] Date Guerrero rded Speak language other than Mauritanian at home Not on file 08/13/2023 Want [...] Info) Description 04/17/2025 12:30 PM EDT Appointment [facility] Procedure Lab [address] [place] [address] Medical Devices Implanted Type Area Radio Rigger Device Identifier Shelf Expiration Date Model / Serial / Lot K-Wire [id number] - [id number] Implanted:Qty: 1 on 08/04/2022 by Rex Rene MD at [facility] IMPLANTS Right: Hand [employer] [id number] / / Wire K-Wire 1.6mm - [id number] Implanted:Qty: 1 on 08/04/2022 by Rex Rene MD at [facility] IMPLANTS Right: Hand BUCK MED GRP:BUCK MED TECH / / Insurance [facility] Advance Directives For more information, please contact: [phone] * Full Code (Latest Code Status on File) Date Activated Date Inactivated Comments 08/04/2022 6:03 AM 08/04/2022 11:35 AM Care Teams Condominium Property Manager Relationship Specialty Start Date End Date Molly Louis MD [address] [place] [address] [address] [place] [address] PCP - General 08/22/24
--- OUTSIDE RECORDS SUMMARY | 2025-03-11 10:46 | XMS_ITS | Encounter Summary ---
Author Organization [employer] ([place], [place], [place], [place]) Address [address] [place] [address] Care Team Providers Care Sales Consultant Residential Manager Name Role Phone Molly Louis MD Primary Care Provider [phone] Encounter Details Date Type Department Care Team (Late st Contact Info) Description 08/22/2024 Outside Orders [facility] Admitting [address] [place] [address] Silverio Tam, PA [address] [place] [address] Esophageal reflux (Primary Dx) Social History Tobacco [...] Date Guerrero rded Speak language other than Indonesian at home Not on file 08/13/2023 Want [...] Info) Description 04/17/2025 12:30 PM EDT Appointment [facility] Procedure Lab [address] [place] [address] documented as of this encounter Results * Helicobacter pylori Ag, Fecal by EIA(SENDOUT) (08/22/2024 11:35 AM EST) Helicobacter pylori Ag, by EIA Negative Negative 08/23/2024 10:57 PM EST [facility] Comment: Performed By: [employer] [address] [place] [address] Language Assistant: Wilber Pardo MD, PhD CLIA Number: [id number] Stool 08/22/2024 11:3 5 AM EST 08/22/2024 11:36 AM EST [facility] - GENERAL ORDERAB LES Final Result [facility] [address] [place] [address], [facility] [phone] * Calprotectin, Fecal by Immunoassay(SENDOUT) (08/22/2024 11:35 AM EST) Calprotectin, Fecal 26 <=49 ug/g 08/26/2024 8:14 AM EST [facility] Comment: REFERENCE INTERVAL: Calprotectin, Fecal by Immunoassay Less than 50 ug/g........Normal 50-120 ug/g..............Borderline elevated, test should be re-evaluated in 4-6 weeks. 121 ug/g or greater......Elevated Performed By: [employer] [address] [place] [address] Language Assistant: Wilber Pardo MD, PhD CLIA Number: [id number] Stool 08/22/2024 11:3 5 AM EST 08/22/2024 11:36 AM EST us [facility] - GENERAL ORDERAB LES Final Result Performing Organization Address City/State/[facility] Co de Phone Number [facility] [address] [phone] documented in this encounter Visit Diagnoses Diagnosis Esophageal reflux- Primary documented in this encounter Care Teams Sales Consultant Residential Manager Relationship Specialty Start Date End Date Molly Louis MD [address] [place] [phone] PCP - General 08/22/24 documented as of this encounter
--- OUTSIDE RECORDS SUMMARY | 2025-03-11 10:46 | XMS_ITS | Encounter Summary ---
Author Organization Healthcare Address [address] [place] [address] Care Team Providers Care Business Excellence Manager Name Role Phone Molly Louis MD Primary Care Provider Angela Oleary RN Unavailable Unavailable Rey Wyatt MD Primary Care Provider [phone] Reason for Visit * Reason Onset Date Comments Med Refill 03/03/2024 Encounter Details Date Type Department Care Team ([facility] Contact Info) Description 03/03/2024 Refill PAV A Inpatient [address] [place], [place] [id number] Paris Marion MD [address] [place] [address] Social History Tobacco Use Types Packs/Day Years [...] 0 02/17/2024 [facility] - Occupational Stress Questionnaire Answer [...] in a retirement (including now)? No 02/09/2024 [place] Depression Scale Answer Date Recorded [place] Depression Scale Total 8 02/22/2024 The thought [...] Info) Description 03/15/2025 3:30 PM EDT Consult [facility] [address] [place] [address] Kendy Sanchez, DATA COMMUNICATIONS TECHNICIAN [address] [place] [address] 04/04/2025 4:00 PM EDT Office Visit [facility] Medicine Specialties [address] [place] [address] Zia Hollis MD [address] [place] [address] 04/17/2025 2:00 PM EDT Office Visit [facility] Medicine Specialties [address] [place] [address] Silverio Tam PA [address] [place] [address] 06/19/2025 8:00 AM EST Office Visit [facility] [place] [address], [address] [place] [address] Courtney Torres MD [address] [place] [address] documented as of this encounter [...] as of this encounter Care Teams Business Excellence Manager Relationship Specialty Start Date End Date Molly Louis MD [address] [place] [address] PCP - General Family Medicine 02/09/24 11/15/24 Rey Wyatt MD [address] [place] [address] PCP - General 11/16/24 Angela Oleary, RN [facility] Registered Nurse Cardiology 02/17/24 documented as of this encounter
--- OUTSIDE RECORDS SUMMARY | 2025-03-11 10:46 | XMS_ITS | Encounter Summary ---
Author Organization [employer] ([place], [place], [place], [place]) Address [address] [place] [address] Care Team Providers Care Automobile Repossessor Name Role Phone Molly Louis MD Primary Care Provider [phone] Encounter Details Date Type Department Care Team (Late st Contact Info) Description 04/14/2024 Outside Orders [facility] Admitting [address] [place] [address] Silverio Tam, PA [address] [place] [address] Blood in stool (Primary Dx) Social History [...] Date Guerrero rded Speak language other than Tajik at home Not on file 08/13/2023 Want [...] Info) Description 04/17/2025 12:30 PM EDT Appointment [facility] Procedure Lab [address] [place] [phone] documented as of this encounter Results * (ABNORMAL) Calprotectin, Fecal by Immunoassay(SENDOUT) (04/14/2024 11:06 AM EDT) Calprotectin, Fecal 87(H) <=49 ug/g 04/19/2024 11:26 PM EDT [facility] Comment: REFERENCE INTERVAL: Calprotectin, Fecal by Immunoassay Less than 50 ug/g.........Normal 50-120 ug/g...............Borderline elevated, test should be re-evaluated in 4-6 weeks. 121 ug/g or greater.......Elevated Performed By: [facility] [address] [place] [address] Manufacturer'S Representative: Wilber Pardo MD, PhD CLIA Number: [id number] Stool 04/14/2024 11:0 6 AM EDT 04/14/2024 11:47 AM EDT [facility] - GENERAL ORDERAB LES Final Result [facility] [address] [place] [address], [facility] [phone] documented in this encounter Visit Diagnoses Diagnosis Blood in stool- Primary documented in this encounter Care Teams Automobile Repossessor Relationship Specialty Start Date End Date Molly Louis MD [address] [place] [address] PCP - General 08/22/24 documented as of this encounter
--- OUTSIDE RECORDS SUMMARY | 2025-03-11 10:46 | XMS_ITS | Encounter Summary ---
Author Organization Healthcare Address [address] [id number] Care Team Providers Care Hotel Yardperson Name Role Phone Angela Oleary RN Unavailable Unavailable Rey Wyatt MD Primary Care Provider [phone] Encounter Details Date Type Department Care Team (Late st Contact Info) Description 01/18/2025 Results Follow-Up [facility] [address] [place] [address] Abundio Kyle [address] [place], [place] [phone] Social History Tobacco Use Types Packs/Day Years [...] often do you attend chur ch or gnosticism services? Never 02/22/2024 Do you belong to any clubs o r organizations such as muslim groups, unions, fraternal or athletic groups, or [...] [facility] - Occupational Stress Questionnaire [...] in a retirement (including now)? No 02/09/2024 [place] Depression Scale Answer Date Recorded [place] Depression Scale Total 6 08/08/2024 The thought [...] drink first t casi in the morning (EYE-MOTOR AND CONTROLS TESTER) to steady your nerves or to get [...] [facility] [address] [place] [address] Kendy Sanchez APRN [address] [place] [address] 04/04/2025 4:00 PM EDT Office Visit [facility] Medicine Specialties [address], [address] [place] [address] Zia Hollis MD [address] [place] [address] 04/17/2025 2:00 PM EDT Office Visit [facility] Medicine Specialties [address] [place] [address] Silverio Tam PA [address] [place] [address] 06/19/2025 8:00 AM EST Office Visit [facility] [place] [address] [facility], [address] [place] [address] Courtney Torres MD [address] [place] [address] Scheduled Orders Name Type Priority [...] documented as of this encounter Care Teams Hotel Yardperson Relationship Specialty Start Date End Date Rey Wyatt MD [address] [facility] [address] [place] [address] PCP - General 11/16/24 Angela Oleary, RN [facility] Registered Nurse Cardiology 02/17/24 documented as of this encounter
[2025-03-11 10:54] VITALS: BP 125/80; PULSE 89; RESP 16; TEMP 37.3; O2SAT 100; BMI 25.9
[2025-03-11 11:00] VITALS: BP 118/76; PULSE 98; RESP 17; O2SAT 100
[2025-03-11 11:03] LABS: Influenza A, PCR Not Detected (NotDetected); Influenza B, PCR Not Detected (NotDetected)
--- NOTE | 2025-03-11 11:15 | ECG_ITS ---
APPROVED REPORT Exam: Resting ECG HR:83 bpm ECG Measurements Heart Rate 83 AXES HI 150 P 34 QRSd 70 QRS 56 QT 313 T -2 QTc 353 Conclusion NSR Normal axis Normal intervals NO STEMI Electronically signed by : Chet Devine, 03/11/2025 15:49:15
[2025-03-11] MEDS: LACTATED RINGERS 1000ML 1,000 ML 999 ML IV (11:29)
[2025-03-11 11:30] VITALS: BP 115/76; PULSE 92; O2SAT 100
[2025-03-11 11:51] LABS: HCG Qualitative, Serum Negative (Negative)
[2025-03-11 12:00] VITALS: BP 131/74; PULSE 87; O2SAT 99
[2025-03-11 12:10] LABS: Free T4 (Free Thyroxine) 0.97 ng/dl (0.78-2.19)
[2025-03-11 12:14] LABS: Thyroid Stimulating Hormone 3.48 uIU/mL (0.465-4.68)
[2025-03-11 12:18] LABS: Coronavirus 19, PCR Detected (NotDetected)
[2025-03-11 12:30] VITALS: BP 120/76; PULSE 88; O2SAT 100
--- NOTE | 2025-03-11 12:44 | HMH.EDGENADL ---
Discharge Plan Disposition Patient Disposition: Home, Self-Care Condition: Good Prescriptions Prescriptions: No Action ondansetron 4 mg tablet,disintegrating 4 mg PO Q8HP PRN Patient Comments: DISSOLVE TWO TABLETS ON THE TONGUE EVERY EIGHT HOURS NEEDED FOR NAUSEA OR VOMITING famotidine 20 mg tablet 20 mg PO DAILY buspirone 5 mg tablet 5 mg PO HS Qty: 30 2RF propranolol 20 mg tablet 30 mg PO TID 30 Days Qty: 90 2RF methimazole 10 mg tablet 10 mg PO BID Qty: 60 2RF fludrocortisone 0.1 mg tablet 0.1 mg PO DAILY 30 Days Qty: 30 0RF cholecalciferol (vitamin D3) 25 mcg (1,000 unit) tablet 4,000 unit PO DAILY Patient Comments: TAKE FOUR TABLETS BY MOUTH EVERY DAY sodium chloride 1,000 mg Tablet,Soluble 1,000 mg PO BID 30 Days Qty: 60 0RF pantoprazole 40 mg tablet,delayed release (DR/EC) 40 mg PO DAILY Qty: 30 1RF Referrals Follow up/Referrals: Padmini Wyatt APRN [Primary Care Provider, Medical] - See instructions Activity Restrictions/Add. Instructions Additional Instructions/Restrictions: Please take Tylenol and Motrin if you develop fevers. Drink plenty of fluids and consider adding small amounts of salt to your water to ensure adequate hydration with your POTS. If you have any new or worsening symptoms please return. Clinical Impressions Clinical Impression: COVID-19 Print Language Print Language: Indian Discharge ED Provider: Chet Devine General Adult HPI General Chief complaint: Upper Respiratory Infection Stated complaint: exp. covid, heart racing, soa, congestion Time Seen by Provider: 03/11/25 10:40 Mode of Arrival: Wheelchair Source of Information: Patient Description of Symptoms (Recalled from ER Triage Doc. by RN): Mom reports her daughter tested positive for covid on 03/07. She developed symptoms yesterday. pt c/o SOA, dizziness, congestion, a productive cough with clear sputum and sore throat. pt has a hx of POTS and states the dizziness is her baseline. History of Present Illness HPI narrative: This is a 24-year-old female patient, with past medical history of thyroiditis, Tricia's thyroiditis, postural orthostatic tachycardia syndrome, anxiety, and dysautonomia, who is presenting to the emergency department today for evaluation of upper respiratory symptoms. The patient states that her 7-year-old daughter was diagnosed with COVID earlier this week. Since that time her 7-month-old daughter has become sick with upper respiratory symptoms and she herself has now become sick with upper respiratory symptoms. She describes a sensation of rhinorrhea and congestion as well as an intermittent cough. She is not producing phlegm. She has also felt weaker than usual since the onset of her symptoms. She states that anytime that she gets sick with a viral illness her postural orthostatic tachycardia syndrome seems to get worse and she feels lightheaded with standing. She likely has a house equipped with durable medical equipment and has a wheelchair available for use for when she gets sick and has worsening symptoms of her POTS. She has not had any chest pain or shortness of breath. No abdominal pain. No nausea, vomiting, or diarrhea. Related Data Home Medications ?Medication ?Instructions ?Recorded ?Confirmed cholecalciferol (vitamin D3) 25 4,000 unit PO DAILY 11/30/24 02/01/25 mcg (1,000 unit) tablet ondansetron 4 mg disintegrating 4 mg PO Q8HP PRN 01/04/25 02/01/25 tablet famotidine 20 mg tablet 20 mg PO DAILY 02/01/25 02/01/25 Previous Rx's ?Medication ?Instructions ?Recorded sodium chloride 1,000 mg soluble 1,000 mg PO BID 30 days #60 tabs 12/01/24 tablet buspirone 5 mg tablet 5 mg PO HS #30 tabs 12/05/24 propranolol 20 mg tablet 30 mg (1.5 x 20 mg) PO TID 30 days 12/06/24 #90 tabs methimazole 10 mg tablet 10 mg PO BID #60 tabs 01/05/25 Held on 02/02/25. Instructions: Home Medication placed on hold at Doctor's office pantoprazole 40 mg tablet,delayed 40 mg PO DAILY #30 tabs 02/04/25 release fludrocortisone 0.1 mg tablet 0.1 mg PO DAILY 30 days #30 tabs 03/07/25 Allergies Allergy/AdvReac Type Severity Reaction Status Date / Time cinnamon Allergy Severe Swelling Verified 03/11/25 10:58 of Lip/Tongue/Throat amoxicillin (From Augmentin) Allergy Rash Verified 03/11/25 10:58 clavulanic acid (From Allergy Rash Verified 03/11/25 10:58 Augmentin) Penicillins Allergy Rash Verified 03/11/25 10:58 PFSH PFS Disclaimer: The information contained in this section may have been updated after the patient was seen, as this information can be updated by other users. Medical History (Updated 03/11/25 @ 12:45 by Chet Devine DO) Orthostatic syncope Autonomic dysfunction Syncope Gilbert's disease Anemia Chest pain Hot flashes Hyperthyroidism Tachycardia Abnormal thyroid blood test Elevated cortisol level IUD check up Encounter for insertion of intrauterine contraceptive device (IUD) Encounter for gynecological examination (general) (routine) without abnormal findings Weakness Syncope Indirect hyperbilirubinemia Vomiting and diarrhea Second trimester Hypokalemia Tachycardia Syncope Hyperemesis affecting , antepartum Vomiting Heart palpitations Hypertension affecting Panic attack Syncope Near syncope Palpitations Sinus tachycardia Chest pain during Depression Anxiety Palpitations IUD (intrauterine device) in place Adrenal disorder POTS (postural orthostatic tachycardia syndrome) Anxiety disorder affecting , antepartum Norovirus Enteritis due to Norovirus Elevated brain natriuretic peptide (BNP) level of unknown anatomic location Diarrhea Herpes simplex of female genitalia Tobacco dependence syndrome Surgical History Hx of cholecystectomy H/O hand surgery Hx of dilation and curettage Hx of tonsillectomy Family History Other Family history of myocardial infarction Family history of stroke Social History Smoking Status: Never smoker smoking status stop date: 2023 second hand exposure: Yes alcohol intake: former substance use type: denies use current occupational status: unemployed Travel in the last 8 weeks?: None housing: house Have you lived/traveled outside US in past 30 days?: No Contact w/someone who lives/traveled outside US past 30 days?: No Exposure to someone with infectious disease in past 14 days?: Yes Do you have a fever (greater than 100.4 F or 38 C)?: No Have you tested positive for COVID-19?: No Exposed to someone with COVID-19 in past 14 days?: Yes Do you have a sore throat?: No Do you have a cough?: No Do you have any weakness?: No Do you have any diarrhea?: No Are you experiencing any unusual bleeding?: No Do you have any muscle aches/pain?: Yes Do you have any abdominal pain?: No Are you experiencing loss of taste or smell?: Yes Other Medical History Have you received the Flu Vaccine for this season: No Have you received the Pneumonia Vaccine: No ROS Obtained: Yes Systems reviewed as appropriate & no additional complaints except as documented Physical Exam General General appearance: other (See MDM) Respiratory Respiratory exam: Present other (See MDM) Cardiovascular Cardiovascular exam: Present other (See MDM) Neurological Exam Neurological exam: Present other (See MDM) Medical Decision Making Medical Records Medical records reviewed: Yes I reviewed the patient's medical records. Screening: Per USPSTF and CDC recommendations, given the prevalence of disease in our region, it is our hospital?s policy to screen for HIV and viral Hepatitis for all patients aged 18 and over and those with ongoing risk factors. Paresh Inquiry Pt receiving controlled substance: No Paresh was queried for this patient: No Vital Signs: 03/11/25 10:54 03/11/25 11:00 03/11/25 11:00 Temperature 99.1 F Temperature Source Oral Pulse Rate 98 H Pulse Rate [Left] 89 Respiratory Rate 16 17 Blood Pressure 118/76 Blood Pressure [Right Arm] 125/80 Blood Pressure Mean [Right Arm] 95 Blood Pressure Source [Right Arm] Automatic Cuff Blood Pressure Position [Right Arm] Sitting 02 Sat by Pulse Oximetry 100 100 100 Oxygen Delivery Method Room Air Room Air 03/11/25 11:30 03/11/25 12:00 03/11/25 12:30 Temperature Temperature Source Pulse Rate 92 H 87 88 Pulse Rate [Left] Respiratory Rate Blood Pressure 115/76 131/74 120/76 Blood Pressure [Right Arm] Blood Pressure Mean [Right Arm] Blood Pressure Source [Right Arm] Blood Pressure Position [Right Arm] 02 Sat by Pulse Oximetry 100 99 100 Oxygen Delivery Method Lab Data Lab Results 03/11/25 10:53: SARS-CoV-2 (PCR) Detected A, Influenza A Untype (PCR) Not detected, Influenza Type B (PCR) Not detected 03/11/25 11:28: TSH 3.48, Free T4 0.97, Serum HCG, Qual Negative Orders (Tests/Meds): ED MEDICATIONS Discontinued Medications Generic Name Dose Route Start Last Admin Trade Name Freq PRN Reason Stop Dose Admin Lactated Ringer's 1,000 mls @ 999 mls/hr 03/11/25 11:13 03/11/25 11:29 Lactated Ringer's 1000 Ml Bag IV 03/11/25 12:13 999 mls/hr .Q1H1M ONE Administration ORDERS Category Date Time Status Free T4 (Free Thyroxine) Stat Lab 03/11/25 11:28 Completed HCG Qualitative, Serum Stat Lab 03/11/25 11:28 Completed Rapid PCR Covid and Flu A/B Stat Lab 03/11/25 10:53 Completed TSH [Thyroid Stimulating Hormone] Stat Lab 03/11/25 11:28 Completed Medical Decision Narrative: In summary this is a 24-year-old female patient who is presenting to the emergency department today for evaluation of upper respiratory symptoms in the setting of her daughter recently being diagnosed with COVID. Her comorbidities include thyroiditis, Tricia's thyroiditis, POTS, and anxiety. On initial evaluation of the patient they were resting comfortably in no acute distress and nontoxic in appearance. They are hemodynamically stable, saturating well room air, and are neurologically intact. On physical examination of the patient her heart and lungs are clear to auscultation bilaterally. She has no lower extremity erythema or edema. She does have congestion noted on exam. She has cobblestoning of her posterior pharynx. Uvula is midline and tonsils are symmetric in appearance. Her blood pressure is normal. She is not tachycardic. She has asked me to check her thyroid function as she worries that when she gets sick it we will alter her thyroid metabolism. She also tells me that she missed her period and is 10 days late currently so we will check a test. Differential diagnosis includes COVID, flu, , hypothyroidism, hyperthyroidism, cardiac arrhythmia, others Labs personally interpreted by me demonstrate no maxillary maladies. Thyroid metabolism is normal. test is negative. Viral swabs were obtained and the patient is positive for COVID. We have administered 1 L of lactated Ringer's in the emergency department. After administration of lactated Ringer's patient has been able to stand without difficulty and she is ambulatory in the room. I have given her expectations for duration of illness and I have also administered return precautions including dehydration, syncope, and persistent fevers that are not responding to antipyretics. At this time all questions are answered and all parties are agreeable with the decision to discharge home Critical Care Critical Care Time Critical Care Time: No
--- NOTE | 2025-03-11 12:53 | HMH.EDGENADL ---
Discharge Plan Disposition Patient Disposition: Home, Self-Care Condition: Good Prescriptions Prescriptions: No Action ondansetron 4 mg tablet,disintegrating 4 mg PO Q8HP PRN Patient Comments: DISSOLVE TWO TABLETS ON THE TONGUE EVERY EIGHT HOURS NEEDED FOR NAUSEA OR VOMITING famotidine 20 mg tablet 20 mg PO DAILY buspirone 5 mg tablet 5 mg PO HS Qty: 30 2RF propranolol 20 mg tablet 30 mg PO TID 30 Days Qty: 90 2RF methimazole 10 mg tablet 10 mg PO BID Qty: 60 2RF fludrocortisone 0.1 mg tablet 0.1 mg PO DAILY 30 Days Qty: 30 0RF cholecalciferol (vitamin D3) 25 mcg (1,000 unit) tablet 4,000 unit PO DAILY Patient Comments: TAKE FOUR TABLETS BY MOUTH EVERY DAY sodium chloride 1,000 mg Tablet,Soluble 1,000 mg PO BID 30 Days Qty: 60 0RF pantoprazole 40 mg tablet,delayed release (DR/EC) 40 mg PO DAILY Qty: 30 1RF Referrals Follow up/Referrals: Padmini Wyatt APRN [Primary Care Provider, Medical] - See instructions Activity Restrictions/Add. Instructions Additional Instructions/Restrictions: Please take Tylenol and Motrin if you develop fevers. Drink plenty of fluids and consider adding small amounts of salt to your water to ensure adequate hydration with your POTS. If you have any new or worsening symptoms please return. Clinical Impressions Clinical Impression: COVID-19 Print Language Print Language: Turkish Discharge ED Provider: Chet Devine Adult HPI General Chief complaint: Upper Respiratory Infection Stated complaint: exp. covid, heart racing, soa, congestion Time Seen by Provider: 03/11/25 10:40 Mode of Arrival: Wheelchair Source of Information: Patient Description of Symptoms (Recalled from ER Triage Doc. by RN): Mom reports her daughter tested positive for covid on 03/07. She developed symptoms yesterday. pt c/o SOA, dizziness, congestion, a productive cough with clear sputum and sore throat. pt has a hx of POTS and states the dizziness is her baseline. Related Data Home Medications ?Medication ?Instructions ?Recorded ?Confirmed cholecalciferol (vitamin D3) 25 4,000 unit PO DAILY 11/30/24 02/01/25 mcg (1,000 unit) tablet ondansetron 4 mg disintegrating 4 mg PO Q8HP PRN 01/04/25 02/01/25 tablet famotidine 20 mg tablet 20 mg PO DAILY 02/01/25 02/01/25 Previous Rx's ?Medication ?Instructions ?Recorded sodium chloride 1,000 mg soluble 1,000 mg PO BID 30 days #60 tabs 12/01/24 tablet buspirone 5 mg tablet 5 mg PO HS #30 tabs 12/05/24 propranolol 20 mg tablet 30 mg (1.5 x 20 mg) PO TID 30 days 12/06/24 #90 tabs methimazole 10 mg tablet 10 mg PO BID #60 tabs 01/05/25 Held on 02/02/25. Instructions: Home Medication placed on hold at Doctor's office pantoprazole 40 mg tablet,delayed 40 mg PO DAILY #30 tabs 02/04/25 release fludrocortisone 0.1 mg tablet 0.1 mg PO DAILY 30 days #30 tabs 03/07/25 Allergies Allergy/AdvReac Type Severity Reaction Status Date / Time cinnamon Allergy Severe Swelling Verified 03/11/25 10:58 of Lip/Tongue/Throat amoxicillin (From Augmentin) Allergy Rash Verified 03/11/25 10:58 clavulanic acid (From Allergy Rash Verified 03/11/25 10:58 Augmentin) Penicillins Allergy Rash Verified 03/11/25 10:58 PFSH PFS Disclaimer: The information contained in this section may have been updated after the patient was seen, as this information can be updated by other users. Medical History (Updated 03/11/25 @ 12:45 by Chet Devine DO) Orthostatic syncope Autonomic dysfunction Syncope Gilbert's disease Anemia Chest pain Hot flashes Hyperthyroidism Tachycardia Abnormal thyroid blood test Elevated cortisol level IUD check up Encounter for insertion of intrauterine contraceptive device (IUD) Encounter for gynecological examination (general) (routine) without abnormal findings Weakness Syncope Indirect hyperbilirubinemia Vomiting and diarrhea Second trimester Hypokalemia Tachycardia Syncope Hyperemesis affecting , antepartum Vomiting Heart palpitations Hypertension affecting Panic attack Syncope Near syncope Palpitations Sinus tachycardia Chest pain during Depression Anxiety Palpitations IUD (intrauterine device) in place Adrenal disorder POTS (postural orthostatic tachycardia syndrome) Anxiety disorder affecting , antepartum Norovirus Enteritis due to Norovirus Elevated brain natriuretic peptide (BNP) level of unknown anatomic location Diarrhea Herpes simplex of female genitalia Tobacco dependence syndrome Surgical History Hx of cholecystectomy H/O hand surgery Hx of dilation and curettage Hx of tonsillectomy Family History Other Family history of myocardial infarction Family history of stroke Social History Smoking Status: Never smoker smoking status stop date: 2023 second hand exposure: Yes alcohol intake: former substance use type: denies use current occupational status: unemployed Travel in the last 8 weeks?: None housing: house Have you lived/traveled outside US in past 30 days?: No Contact w/someone who lives/traveled outside US past 30 days?: No Exposure to someone with infectious disease in past 14 days?: Yes Do you have a fever (greater than 100.4 F or 38 C)?: No Have you tested positive for COVID-19?: No Exposed to someone with COVID-19 in past 14 days?: Yes Do you have a sore throat?: No Do you have a cough?: No Do you have any weakness?: No Do you have any diarrhea?: No Are you experiencing any unusual bleeding?: No Do you have any muscle aches/pain?: Yes Do you have any abdominal pain?: No Are you experiencing loss of taste or smell?: Yes Other Medical History Have you received the Flu Vaccine for this season: No Have you received the Pneumonia Vaccine: No Physical Exam General General appearance: other (See MDM) Medical Decision Making Medical Records Screening: Per USPSTF and CDC recommendations, given the prevalence of disease in our region, it is our hospital?s policy to screen for HIV and viral Hepatitis for all patients aged 18 and over and those with ongoing risk factors. Vital Signs: 03/11/25 10:54 03/11/25 11:00 03/11/25 11:00 Temperature 99.1 F Temperature Source Oral Pulse Rate 98 H Pulse Rate [Left] 89 Respiratory Rate 16 17 Blood Pressure 118/76 Blood Pressure [Right Arm] 125/80 Blood Pressure Mean [Right Arm] 95 Blood Pressure Source [Right Arm] Automatic Cuff Blood Pressure Position [Right Arm] Sitting 02 Sat by Pulse Oximetry 100 100 100 Oxygen Delivery Method Room Air Room Air 03/11/25 11:30 03/11/25 12:00 03/11/25 12:30 Temperature Temperature Source Pulse Rate 92 H 87 88 Pulse Rate [Left] Respiratory Rate Blood Pressure 115/76 131/74 120/76 Blood Pressure [Right Arm] Blood Pressure Mean [Right Arm] Blood Pressure Source [Right Arm] Blood Pressure Position [Right Arm] 02 Sat by Pulse Oximetry 100 99 100 Oxygen Delivery Method Lab Data Lab Results 03/11/25 10:53: SARS-CoV-2 (PCR) Detected A, Influenza A Untype (PCR) Not detected, Influenza Type B (PCR) Not detected 03/11/25 11:28: TSH 3.48, Free T4 0.97, Serum HCG, Qual Negative Orders (Tests/Meds): ED MEDICATIONS Discontinued Medications Generic Name Dose Route Start Last Admin Trade Name Freq PRN Reason Stop Dose Admin Lactated Ringer's 1,000 mls @ 999 mls/hr 03/11/25 11:13 03/11/25 11:29 Lactated Ringer's 1000 Ml Bag IV 03/11/25 12:13 999 mls/hr .Q1H1M ONE Administration ORDERS Category Date Time Status Free T4 (Free Thyroxine) Stat Lab 03/11/25 11:28 Completed HCG Qualitative, Serum Stat Lab 03/11/25 11:28 Completed Rapid PCR Covid and Flu A/B Stat Lab 03/11/25 10:53 Completed TSH [Thyroid Stimulating Hormone] Stat Lab 03/11/25 11:28 Completed
[2025-03-11 12:58] VITALS: BP 152/72; PULSE 60; RESP 12; TEMP 36.6; O2SAT 100
== END 2025-03-11 12:59 | disposition home or self-care (01) ==
PROVIDERS: Emergency Provider Student in an Organized Health Care Education/Training Program; PCP Nurse Practitioner Family
DX: U07.1 COVID-19 (principal); R42 Dizziness and giddiness; G90.A Postural orthostatic tachycardia syndrome [POTS]
CPT/HCPCS: 84439; 84443; 84703; 87636; 93005; 96360; 99284; J7120

== ENCOUNTER 2025-03-31 15:58 | Outpatient (CLI) | payer MEDICAID, SELFPAY ==
--- OUTSIDE RECORDS SUMMARY | 2025-02-16 13:20 | XMS_ITS | Encounter Summary ---
Author Organization [facility] Address [address] [place] [address] Care Team Providers Care Sociology Professor Name Role Phone Angela Oleary RN Unavailable Unavailable Rey Wyatt MD Primary Care Provider Reason for Referral * Cardiac Stress Testing (Routine) - Authorized Specialty Diagnoses / Procedures Referred By Contac t Referred To Contact Cardiology Diagnoses Syncope and collapse Procedures Outside Tilt Table Test Courtney Torres MD [address] [place] [address] Phone: tel: fax: Referral ID Status Reason Start Date Expiration Date V isits Requested Visits Authorized [id number] Authorized 02/16/2025 08/18/2026 1 1 Encounter Details Date Type Department Care Team (Late st Contact Info) Description 02/16/2025 1:20 PM EDT Office Visit [facility] [place] [address], [address] [place] [address] Courtney Torres MD [address] [place] [address] Syncope and collapse (Primary Dx); [...] How often do you attend chur or mormonism services? Never 02/22/2024 Do you [...] Recorded Patient Health Questionnaire-2 Score 0 12/15/2024 [facility] [...] in a penitentiary (including now)? No 02/09/2024 [place] Depression Scale Answer Date Recorded [place] Depression Scale Total 6 08/08/2024 The thought [...] drink first t casi in the morning (EYE-SALT REFINER) to steady your nerves or to get [...] from the original note were not included. [facility] Medical Office Building [address] [place] [address] Clinic Jackie JayNola: Our Lab: [address] [place] [address] (call to schedule a lab appointment) It was a pleasure to see you at the [facility] on [facility]. We strive to provide timely care for [...] by phone or send a message through [employer]. We are committed to accommodating all inquires [...] office and send us a message through [employer] so we can assist you. Thank you for coming to clinic today! Below is some information about what we discussed and a list of the orders that were placed during the visit. -Orders Placed This Visit Orders Placed This Encounter Procedures Catecholamines, fractionated, plasma Standing Status: Future Expected Date: 02/16/2025 Expiration Date: 08/19/2026 [facility]] Cortisol Standing Status: Future Expected Date: 02/16/2025 Expiration Date: 08/19/2026 [facility] [1] Ferritin, Serum Standing Status: Future Expected Date: 02/16/2025 Expiration Date: 08/19/2026 [facility] [1] Tryptase Standing Status: Future Expected Date: 02/16/2025 Expiration Date: 08/19/2026 [facility] [1] Outside Tilt Table Test Eval for VVS vs POTS; syncope Standing Status: Future Expected Date: 02/16/2025 Expiration Date: 02/16/2027 [facility] [1] Cardiopulmonary Exercise Test Standing [...] (POTS) The following is adapted from the [facility] and Dr. Reji Esquivel ([facility]) VIDEO: What is POTS? [email or web address] POTS Manual ([facility]): [email or web address] General Advice: --Hydration: Hydrate with just water [...] to see a result. Adapted from the [facility] and Dr. Reji Esquivel ([facility]) * Progress Notes - Courtney Torres [...] standing [x] meals [x] during menses [x] wood floor refinisher hours [x] in hot weather [x] during [...] subtypes ofPOTS Has seen Sleep Medicine at [place], [place] Follows Psychiatry : [facility] [place], [place] -Initial Conservative Treatment Strategy: -Water and [...] 30 capsule 1 Blood Glucose Monitoring Suppl (PanOptica Verio Reflect) w/Device kit busPIRone (Buspar) 5 [...] for mild pain. 30 tablet 1 Lancets (SENSIMEDuch Delica Plus [id number]) misc levothyroxine (Synthroid, Levoxyl) 25 MCG tablet Take 1 tablet by mouth daily. ondansetron (Zofran) 4 MG tablet Take 1 tablet (4 mg) by mouth every 8 (eight) hours if needed for nausea or vomiting. 3 tablet 5 ondansetron ODT (Zofran-ODT) 4 MG disintegrating tablet Dissolve 2 tablets on the tongue every 8 hours as needed for nausea or vomiting. 20 tablet 5 mobiliThinkTouch Verio test strip 1 each by Other [...] every 6 hours as needed. sodium chloride ([place]y Nasal [place]) 0.65 % nasal spray Administer 1 spray [...] Care Team (Late st Contact Info) Description 04/04/2025 4:00 PM EDT Office Visit [facility] Medicine Specialties [address], [address] [place] [address] Zia Hollis MD [address] [place], [place] [id number] 04/17/2025 2:00 PM EDT Office Visit [facility] Medicine [facility] [address] [place] [address] Silverio Tam PA [address] [place] [address] 06/15/2025 12:30 PM EST Office Visit [facility] [address], [address] [place] [address] Kendy Sanchez, LINTER TENDER [address] [place] [address] 06/19/2025 8:00 AM EST Office Visit [facility] [place] [address], [address] [place] [address] Courtney Torres MD [address] [place] [address] 06/19/2025 12:30 PM EST Appointment [facility] [address] [place] [address] 06/21/2025 12:30 PM EST Appointment [facility] [address] [place] [address] Scheduled Orders Name Type Priority [...] from the original result were not included. [facility] Cardiopulmonary Exercise Testing Laboratory The risks and [...] sinus rhythm at 71 bpm. Heart Rate [place] unable to be determined Pulmonary Performance/Ventilatory Response: [...] at peak exercise was 87 L/min (Breathing [place] Ratio: 70%). VE/VCO2 slope unable to be obtained. Conclusion: Due to early termination of the test (after 1:30-2:00 minutes) unable to accurately interpret the findings. Can consider repeating in the future if the patient is able to exercise. Tay Barraza DO Coater Operatorshrink pit supervisor Cardiovascular Medicine Director of Sports Cardiology [facility] [place] Courtney Torres MD PFT ORDERABLES Final Result * (ABNORMAL) Cardiopulmonary Exercise Test (03/01/2025 11:19 AM EDT) [id number] 4.85(A) 3.04 - 4.60 L VYAIRE PFT FEV1 PRE 3.42 2.62 - 3.88 L VYAIRE PFT FEV1/FVC PRE 70.53(A) 74.27 - 94.96 % VYAIRE PFT BPU46-91% PRE 2.34(A) 2.43 - 5.18 L/s VYAIRE PFT PEF PRE 8.68(A) 5.24 - 8.66 L/s VYAIRE PFT [id number] 126.25(A) 114.18 - 114.18 L/min VYAIRE PFT Anatomical Region Laterality Modality PFT 03/01/2025 10:2 6 AM EDT Narrative 03/01/2025 11:43 AM EDT Images from the original result were not included. [facility] Cardiopulmonary Exercise Testing Laboratory The risks and [...] sinus rhythm at 71 bpm. Heart Rate [place] unable to be determined Pulmonary Performance/Ventilatory Response: [...] at peak exercise was 87 L/min (Breathing [place] Ratio: 70%). VE/VCO2 slope unable to be obtained. Conclusion: Due to early termination of the test (after 1:30-2:00 minutes) unable to accurately interpret the findings. Can consider repeating in the future if the patient is able to exercise. Tay Barraza DO Coater Operatorshrink pit supervisor Cardiovascular Medicine Director of Sports Cardiology [facility] [place] Courtney Torres MD PFT ORDERABLES Final Result * Tryptase (02/16/2025 2:17 PM EDT) TRYPTASE 4.3 <=10.9 ug/L 02/19/2025 2:04 PM EDT [facility] Serum Venous blood specimen / Unknown 02/16/2025 2:17 PM EDT 02/16/2025 2:17 PM EDT Narrative [facility] ([place]) - 02/19/2025 2:04 PM EDT Performed By: [facility] [address] [place] [address] Perpetual Inventory Clerk: Wilber Pardo MD, PhD CLIA Number: [id number] Courtney Torres MD LAB BLOOD ORDERABLES Final Re sult Performing Organization Address [facility] Co de Phone Number [facility] [address] [place] [address] * (ABNORMAL) Ferritin, Serum (02/16/2025 2:17 PM EDT) Ferritin, Serum 6(L) 13 - 150 ng/mL 02/16/2025 6:17 PM EDT [facility] Blood Venous blood specimen / Unknown Venipuncture / Unknown 02/16/2025 2:17 PM EDT 02/16/2025 2:17 PM EDT Courtney Torres MD LAB BLOOD ORDERABLES Final Re sult Performing Organization Address [facility] de Phone Number [facility] [address] [place] [address] * Cortisol (02/16/2025 2:17 PM EDT) Cortisol 2.80 Before 10am: 3.7 - 19.4. After 5pm: 2.9 - 17.3 ug/dL 02/16/2025 6:36 PM EDT [facility] Comment:Testing performed on [employer], standardized against [facility] Reference Standard concentration values assigned by LC-MS/MS and verified by BCR 192 and BCR 193 certified reference materials. Blood Venous blood specimen / Unknown Venipuncture / Unknown 02/16/2025 2:17 PM EDT 02/16/2025 2:17 PM EDT Courtney Torres MD LAB REF LAB BLOOD AND FLUID O RD Final Result Performing Organization Address City/[facility]/ZIP Co de Phone Number [facility] [address] [place] [address] * Catecholamines, fractionated, plasma (02/16/2025 2:17 PM EDT) CATECHOLAMINES, INTERP See Note 02/27/2025 12:36 AM EDT [facility] ([facility]) DOPAMINE <130 <=240 pmol/L 02/27/2025 12:36 AM EDT [facility] ([facility]) EPINEPHRINE 167 <=330 pmol/L 02/27/2025 12:36 AM EDT [facility] ([facility]) NOREPINEPHRINE 1597 1050 - 4800 pmol/L 02/27/2025 12:36 AM EDT [facility] ([facility]) Blood Venous blood specimen / Unknown Venipuncture / Unknown 02/16/2025 2:17 PM EDT 02/16/2025 2:17 PM EDT Narrative [facility] ([facility]) - 02/27/2025 12:36 AM EDT INTERPRETIVE INFORMATION:Epinephrine [...] reference intervals for this test in the [facility] Test Directory ([employer]). This test was developed and its performance characteristics determined by [facility] [facility]. It has not been cleared or approved by the US Food and Drug Administration. This test was performed in a CLIA certified laboratory and is intended for clinical purposes. Performed By: [employer] [address] [place] [address] Perpetual Inventory Clerk: Wilebr Pardo MD, PhD CLIA Number: [id number] us Courtney Torres MD LAB BLOOD ORDERABLES Final Re sult [facility] [address] [place] [address] documented in this encounter Visit Diagnoses Diagnosis [...] documented as of this encounter Care Teams Sociology Professor Relationship Specialty Start Date End Date Rey Wyatt MD [address] [address] PCP - General 11/16/24 Angela Oleary, RN [facility] Registered Nurse Cardiology 02/17/24 documented as of this encounter
--- OUTSIDE RECORDS SUMMARY | 2025-03-01 10:13 | XMS_ITS | Encounter Summary ---
Author Organization Healthcare Address [address] [place] [address] Care Team Providers Care Residential Child Care Counselor Name Role Phone Angela Oleary RN Unavailable Unavailable Rey Wyatt MD Primary Care Provider [phone] Encounter Details Date Type Department Care Team (Latest Contact Info) Description 03/01/2025 10:13 AM EDT - 03/01/2025 11:59 PM EDT Hospital Encounter [facility] Pul[facility] Function Testing [address] [place] [address] Dysautonomia-like disorder Discharge Disposition: Home or Self Care Social [...] often do you attend chur ch or muslim services? Never 02/22/2024 Do you [...] Recorded Patient Health Questionnaire-2 Score 0 12/15/2024 [facility] [...] a group home (including now)? No 02/09/2024 [place] Depression Scale Answer Date Recorded [place] Depression Scale Total 6 08/08/2024 The thought [...] drink first t casi in the morning (EYE-TELEPHONE QUOTATION CLERK) to steady your nerves or to get [...] on file documented as of this encounter Medications at Time of Discharge acetaminophen (Tylenol) 325 MG capsule Take 2 capsules (650 mg) by mouth every 6 (six) hours if needed for mild pain. 30 capsule 1 07/18/2024 Blood Glucose Monitoring Suppl (Frank & OakTouch Verio Reflect) w/Device kit 04/14/2024 busPIRone (Buspar) [...] mild pain. 30 tablet 1 07/18/2024 Lancets (FTL SOLAR Delica Plus [id number]) misc 04/14/2024 levothyroxine (Synthroid, Levoxyl) 25 MCG tablet Take 1 tablet by mouth daily. 02/10/2025 ondansetron (Zofran) 4 MG tablet Take 1 tablet (4 mg) by mouth every 8 (eight) hours if needed for nausea or vomiting. 3 tablet 5 07/18/2024 ondansetron ODT (Zofran-ODT) 4 MG disintegrating tablet Dissolve 2 tablets on the tongue every 8 hours as needed for nausea or vomiting. 20 tablet 5 12/30/2024 FTL SOLAR Verio test strip 1 each by Other route if needed. 04/14/2024 oral electrolytes (Thermotabs) tablet Take 1 tablet by mouth 2 times a day. 60 tablet 1 02/16/2025 potassium & sodium phosphates (Phos-NaK) 280-160-250 MG packet Take 1 packet by mouth 1 (one) time each day. 30 packet 1 03/16/2024 propranolol (Inderal) 20 MG tabletIndications:P helen's disease Take 1 tablet by mouth 3 (three) times a day. 90 tablet 3 11/16/2024 senna-docusate (Codi-Colace) 8.6-50 MG tablet Take 1 tablet by mouth 1 (one) time each day. 30 tablet 1 07/18/2024 simethicone (Mylicon) 80 MG chewable tablet Chew 1 tablet every 6 hours as needed. sodium chloride ([place] Nasal [place]) 0.65 % nasal spray Administer 1 spray into each nostril if needed for congestion. 30 mL 12 04/12/2024 Ventolin HFA 108 (90 Base) MCG/ACT inhaler 10/05/2024 Vit-Fe Fumarate-FA ( Vitamins) 28-0.8 MG tablet Take 1 tablet by mouth 1 (one) time each day. 30 tablet 11 03/17/2024 documented as of this encounter Plan of Treatment Upcoming Encounters Date Type Department Care Team (Late st Contact Info) Description 04/04/2025 4:00 PM EDT Office Visit [facility] Medicine Specialties [address] [place] [address] Zia Hollis MD [address] [place], [place] [id number] 04/17/2025 2:00 PM EDT Office Visit [facility] Specialties [address] [place] [address] Silverio Tam PA [address] [facility] [address] [place] [address] 06/15/2025 12:30 PM EST Office Visit [facility] [address] [place] [address] Kendy Sanchez APRN [address] [place] [address] 06/19/2025 8:00 AM EST Office Visit [facility] [place] [address], [address] [place] [address] Courtney Torres MD [address] [place] [address] 06/19/2025 12:30 PM EST Appointment [facility] [address] [place] [address] 06/21/2025 12:30 PM EST Appointment [facility] [address] [place] [address] documented as of this encounter Goals Goal Patient Goal Type Associated Problems Recent Progress Patient-Stated? Author Delayed Delivery Care Plan CPM S22 PP LABOR (OBSTETRICS) No Open Scheduling, Background documented as of this encounter Procedures Procedure Name Priority Date/Time Associated Diagnosis Comments EXERCISE ECG Routine 03/01/2025 11:19 AM EDT Dysautonomia-like disorder HC CARDIOPULMONARY EXERCISE TESTING - COMPLEX STRESS TEST, PULMONARY Routine 03/01/2025 11:19 AM EDT Dysautonomia-like disorder documented in this encounter Results * CPET ECG (03/01/2025 11:19 AM EDT) Anatomical Region Laterality Modality PFT 03/01/2025 10:4 9 AM EDT Narrative 03/01/2025 11:43 AM EDT Images from the original result were not included. [facility] Cardiopulmonary Exercise Testing Laboratory The risks [...] sinus rhythm at 71 bpm. Heart Rate [place] unable to be determined Pulmonary Performance/Ventilatory Response: [...] at peak exercise was 87 L/min (Breathing [place] Ratio: 70%). VE/VCO2 slope unable to be obtained. Conclusion: Due to early termination of the test (after 1:30-2:00 minutes) unable to accurately interpret the findings. Can consider repeating in the future if the patient is able to exercise. Tay Barraza DO Dry Starch Operatorfireperson Cardiovascular Medicine Director of Sports Cardiology [facility] [place] Courtney Torres MD PFT ORDERABLES Final Result * (ABNORMAL) Cardiopulmonary Exercise Test (03/01/2025 11:19 AM EDT) [id number] 4.85(A) 3.04 - 4.60 L VYAIRE PFT FEV1 PRE 3.42 2.62 - 3.88 L VYAIRE PFT FEV1/FVC PRE 70.53(A) 74.27 - 94.96 % VYAIRE PFT MUV86-30% PRE 2.34(A) 2.43 - 5.18 L/s VYAIRE PFT PEF PRE 8.68(A) 5.24 - 8.66 L/s VYAIRE PFT [id number] 126.25(A) 114.18 - 114.18 L/min VYAIRE PFT Anatomical Region Laterality Modality PFT 03/01/2025 10:2 6 AM EDT Narrative 03/01/2025 11:43 AM EDT Images from the original result were not included. [facility] Cardiopulmonary Exercise Testing Laboratory The risks [...] sinus rhythm at 71 bpm. Heart Rate [place] unable to be determined Pulmonary Performance/Ventilatory Response: [...] at peak exercise was 87 L/min (Breathing [place] Ratio: 70%). VE/VCO2 slope unable to be obtained. Conclusion: Due to early termination of the test (after 1:30-2:00 minutes) unable to accurately interpret the findings. Can consider repeating in the future if the patient is able to exercise. Tay Barraza DO Dry Starch Operatorfireperson Cardiovascular Medicine Director of Sports Cardiology [facility] Heart & Vascular [place] Courtney Torres MD PFT ORDERABLES Final Result documented in this encounter Visit Diagnoses Diagnosis Dysautonomia-like disorder documented in this encounter Additional [...] documented as of this encounter Care Teams Residential Child Care Counselor Relationship Specialty Start Date End Date Rey Wyatt MD [address] [facility] [address] [place] [address] PCP - General 11/16/24 Angela Oleary, RN [facility] Registered Nurse Cardiology 02/17/24 documented as of this encounter
--- OUTSIDE RECORDS SUMMARY | 2025-03-15 15:30 | XMS_ITS | Encounter Summary ---
Author Organization [facility] Address [address] [place] [address] Care Team Providers Care Aquatic Scientist Name Role Phone Angela Oleary RN Unavailable Unavailable Rey Wyatt MD Primary Care Provider [phone] Reason for Referral * Other Medical (Routine) - Pending Review Specialty Diagnoses / Procedures Referred By Mili joe Referred To Contact Neurology Diagnoses Syncope, unspecified syncope type Procedures Home-Based Ambulatory EEG Kendy Sanchez APRN [address] [facility] [address] [place] [address] Phone: tel: fax: Referral ID Status Reason Start Date Expiration Date Visits Requested Visits Authorized [id number] Pending Review Specialty Services Required 03/15/2025 09/14/2026 1 1 Reason for Visit * Consultation (Routine) - Closed Specialty Diagnoses / Procedures Referred By iMli joe Referred To Contact Neurology Diagnoses Seizure-like activity (CMS/HCC) Román Joiner MD [address] [place] [address] Phone: tel: fax: [place] [facility] [address] [place] [address] Phone: tel: fax: Referral ID Status Reason Start Date Expiration Date V isits Requested Visits Authorized [id number] Closed Specialty Services Required 09/12/2024 03/14/2026 1 1 Encounter Details Date Type Department Care Team (Late st Contact Info) Description 03/15/2025 3:30 PM EDT Consult [place] [facility] [address] [place] [address] Kendy Sanchez, TEAM PRIMARY CARE PHYSICIAN [address] [place] [address] Syncope, unspecified syncope type (Primary Dx) Social History Tobacco Use Types Packs/Day Years Used Date Smoking Tobacco: Former Cigarettes 0.3 10 2 012 - 2021 Passive Smoke Exposure: Never Smokeless Tobacco: Former Tobacco Cessation:Counseling Given: Not [...] Recorded Patient Health Questionnaire-2 Score 0 12/15/2024 [facility] [...] in a penitentiary (including now)? No 02/09/2024 [place] Depression Scale Answer Date Recorded [place] Depression Scale Total 6 08/08/2024 The thought [...] first t casi in the morning (EYE-TWISTING DEPARTMENT END FINDER) to steady your nerves or to get [...] Sign Reading Time Taken Comments Blood Pressure 112/80 03/15/2025 2:26 PM EDT Pulse 82 03/15/2025 2:26 PM EDT Temperature - - Respiratory Rate - - Oxygen Saturation 98% 03/15/2025 2:26 PM EDT Inhaled Oxygen Concentration - - Weight 69.9 kg (154 lb 1.6 oz) 03/15/2025 2:26 P M EDT Height 167.6 cm (5' 6 ) 03/15/2025 2:26 PM EDT Body Mass Index 24.87 03/15/2025 2:26 PM EDT documented in this encounter Miscellaneous Notes * Progress Notes - Kendy Sanchez APRN - 03/15/2025 3:30 PM EDT CHIEF COMPLAINT: The patinet presents to the office for/with seizures. History of Present Illness I had the pleasure of seeing Ms. Francy Delarosa for establishing care in the Epilepsy clinic. The patient came accompanying by her 7 month old daughter and who helps to provide some of the history. She was referred to epilepsy clinic by by cardiology team. She came in wheelchair due to frequent fainting, palpitation, and SOB. She reports that she just got over Covid. 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 The history of seizures began last year. The patient has 1 seizure types. SEIZURE DESCRIPTION: Age of onset: 23 Aura/Warning - sees stars, floating feeling in head Event description - pass out , but she can hear and whole vision goes black and losing muscle skill Loss of bowel or bladder control - No Tongue bite - No Post ictal: back to base line Duration - 1 minute Frequency - weekly Last occurrence - 2 weeks ago. Epilepsy Evaluation: Previous EEG: none OSH MRI head wo December 2024: Impression: no acute intracranial abnormality. 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 EPILEPSY RISK FACTORS: Head trauma: no AUTOMOTIVE GLASS MECHANIC infections: no Family history of seizures: no Developmental delay: no Febrile seizures: no AUTOMOTIVE GLASS MECHANIC tumors: no AUTOMOTIVE GLASS MECHANIC vascular disease: no and early development: premature for 7-8 weeks Complications: premature for 7-8 weeks NICU admission with prolonged hospital stay: Yes Current ASMs: None INTERVAL HISTORY: Patient reports last fainting episode was 2 weeks ago Patient is not driving status- not , not on control Mood: hx of depression, takes Buspar Memory: forgetful Suicidal Ideation: no Sleep: insomnia The patient's ability to work since last visit: No Review of Systems: A 14 point review of systems was negative except as noted in HPI. Physical Exam: GEN: appears well, not in acute distress, comfortable HEENT: atraumatic, no scleral icterus RESPIRATORY: normal expansion, breathing comfortably on room air PSYCH: pleasant and appropriate, normal affect. Neurologic: MENTAL STATUS: Awake, alert, oriented, interactive, able to follow commands, good mood with appropriate affect. Remote and recent memory: Memory to recent and remote facts, speech and language is appropriate Vital signs were reviewed as charted. CRANIAL NERVES: II - PERRLA, VFs full to confrontation III, IV, - Normal. Extraocular movements are full in all directions with no nystagmus. V - Facial sensation intact bilaterally, no facial droop VII - Brow raise and smile symmetrical, Normal. Facial motility is symmetric. VIII - Auditory acuity intact IX, X - Palate elevation symmetric, uvula midline XI - Sternocleidomastoid and trapezius muscle have normal strength. XII - Tongue protrudes midline with normal movement MOTOR: No pronator drift, normal tone and bulk, strength 5/5 throughout, no abnormal movements. COORDINATION: no ataxia with [id number] testing GAIT: defer, came on wheelchair, feels dizzy There was no evidence of nystagmus, tremor, or dysmetria. Judgment and insight: Normal. 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 She has had multiple ED visit with palpitations, SOB, and fainting episodes. She has been evaluated in cardiology clinic as well ans Dysautonomia clinic and was advised to be evaluated for possible seizure as well as Dysautonomia-like disorder. Since last year she has started having episodes of seeing stars with floating feeling in head, thenfainting episodes , but she can hear and whole vision goes black and losing muscle skill. She came in wheelchair for frequent fainting recently, the last episode was 2 weeks ago. She was advised with Cardiology team to be evaluated for possible seizure. I advised in order to better clarify the nature of these events, I recommended either an admission to the EMU for video EEG monitoring or ambulatory EEG, which she desires to do aEEG because she has 3 kids and younger one is 7 month old. Discussed the importance of not driving at least 90 days after most recent seizure and medically cleared by his epileptologist. Patient verbalized understanding. Patient has been informed to call clinic if any concerns or questions prior to next visit. I advised that she can not drive should she have any breakthrough seizure till medically cleared. -Discussed with patient about the importance of getting enough sleep every night, avoiding caffeineand exercising daily. Patient was counseled on seizure precautions, these include: Continuous seizure precautions: 1) Avoid sleep deprivation or other known seizure risk factors including alcohol 2) Avoid open bodies of water or open flame 3) Avoid situations where loss of consciousness may predispose to injury 4) Avoid swimming alone 5) Take showers, not baths 6)Do not drive (including heavy machinery, ATVs, etc) for at least 90 days after the date of the last seizure/spell per [facility] law Patient has been informed to call clinic if any concerns or problems prior to next visit. Plan: -Given semiology of episodes and history of POTS, also patient does not desire to start on any ASM for now till the EEG, we will hold off on ASM. -Ordered Ambulatory EEG to characterize the episodes. --She had routine blood work in November, which I have reviewed with patient, the values were WNL or NCS. - Follow up in 3-4 months to review the result. - Counseled on Women with epilepsy and - Counseled on oral contraceptives and that levels may drop due to hormone effects. -I counseled patient about the risk of injuries from seizures and (SUDEP) specially with GTC seizures. -I counseled to not driving at least 90 days after most recent episodes, till clear by neurologist,patient voiced understanding. -Patient knows not to drive should she have any breakthrough seizures until medically cleared. Patient verbalized understanding. Patient and were agreeable with the above plan. Patient knows to call with any concerns prior to next appointment. Total time spent=70 minutes, visit/counseling/management plan/review of results/ placing orders anddocumentation which 40 minutes was spent discussing the new medication, its side effect, tests, management, and seizure safety precaution. documented in this encounter Plan of Treatment Upcoming Encounters Date Type Department Care Team (Late st Contact Info) Description 04/04/2025 4:00 PM EDT Office Visit [facility] [address] [place] [address] Zia Hollis MD [address] [place] [address] 04/17/2025 2:00 PM EDT Office Visit [facility] [address], [address] [place] [address] Silverio Tam PA [address] [place] [address] 06/15/2025 12:30 PM EST Office Visit [facility] [address] [place] [address] Kendy Sanchez APRN [address] [place] [address] 06/19/2025 8:00 AM EST Office Visit [facility] [address], [address] [place] [address] Courtney Torres MD [address] [place] [address] 06/19/2025 12:30 PM EST Appointment [facility] [address] [place] [address] 06/21/2025 12:30 PM EST Appointment [facility] [address] [place] [address] Scheduled Orders Name Type Priority Associated Diagnoses Orde r Schedule Home-Based Ambulatory EEG Neurology Routine Syncope, unspecified syncope type Expected: 03/15/2025 (Approximate), Expires: 09/16/2026 documented as of this encounter Goals Goal Patient Goal Type Associated Problems Recent Progress Patient-Stated? Author Delayed Delivery Care Plan CPM S22 PP LABOR (OBSTETRICS) No Open Scheduling, Background documented as of this encounter Visit Diagnoses Diagnosis Syncope, unspecified syncope type- Primary documented in this encounter Additional Health Concerns Active Problems Noted Date Diagnosed Date CPM S22 PP LABOR (OBSTETRICS) 02/24/2024 Assessment Noted Time PHQ-9 Depression Total Score: 2 12/16/19 2:22 PM EDT A fall risk assessment has been complete d for the patient 03/15/2025 2:34 PM EDT A Body Mass Index follow-up plan has been documented for the patient 03/15/2025 3:48 PM EDT documented as of this encounter Care Teams Aquatic Scientist Relationship Specialty Start Date End Date Rey Wyatt MD [address] [place] [address] PCP - General 11/16/24 Angela Oleary, RN [facility] Registered Nurse Cardiology 02/17/24 documented as of this encounter
[2025-03-31 17:18] LABS: Hematocrit 38.3 % (37.0-47.0); Hemoglobin 12.4 g/dL (12.2-16.2); Immature Granulocytes % 0.2 %; Mean Corpuscular HGB Conc 32.4 g/dL (31.8-35.4); Mean Corpuscular Hemoglobin 27.1 pg (27.0-31.2); Mean Corpuscular Volume 83.8 fl (81-99); Nucleated Red Blood Cells % 0 %; Platelet Count 197 K/mm3 (142-424); Red Blood Count 4.57 M/mm3 (4.20-5.40); Red Cell Distribution Width-SD 45.1 fL; White Blood Count 5.7 K/mm3 (4.8-10.8)
[2025-03-31 18:32] LABS: Albumin Level 4.7 g/dl (3.5-5.0); Chloride 110 mmol/L (98-107); Sodium 142 mmol/L (136-145)
[2025-03-31 18:33] LABS: Potassium 4.6 mmoL/L (3.5-5.1)
[2025-03-31 18:35] LABS: Alanine Aminotransferase 12 U/L (12-78); Albumin/Globulin Ratio 1.6 (1.1-1.8); Alkaline Phosphatase 55 U/L (38-126); Anion Gap 11.6 mEq/L (5-15); Aspartate Amino Transferase 24 U/L (14-36); Bilirubin,Total 1.1 mg/dl (0.2-1.3); Blood Urea Nitrogen 7 mg/dl (7-17); Carbon Dioxide 25 mmol/L (22.0-30.0); Creatinine,Serum 0.60 mg/dl (0.52-1.04); Estimated Glomerular Filt Rate 121 ml/min (>60); GFR (African American) 146 ML/MIN (>60); Globulin 2.9 g/dL (1.3-3.2); Total Protein,Serum 7.6 g/dl (6.3-8.2)
[2025-03-31 18:36] LABS: Calcium 9.4 mg/dl (8.4-10.2); Glucose 80 mg/dl (74-100)
[2025-03-31 19:07] LABS: Thyroid Stimulating Hormone 2.38 uIU/mL (0.465-4.68)
[2025-03-31 19:11] LABS: Ferritin 5.61 ng/ml (6.24-137)
[2025-03-31 19:26] LABS: Vitamin B12 376 pg/mL (239-931)
--- OUTSIDE RECORDS SUMMARY | 2025-04-03 09:46 | XMS_ITS | Clinical Summary ---
Author Organization [facility] Address [address] [place] [address] Care Team Providers Care Clinical Nursing Professor Name Role Phone Provider, No Known Primary [...] Description 01/10/2025 8:30 AM EDT Office Visit [facility] ENDOCRINOLOGY [address] [facility] [address] [place] [address] Saskia Garcia MD Hyperthyroidism (Primary [...] Date Smoking Tobacco: Every Day Cigarettes 1 4.7 Started: 2020 Smokeless Tobacco: Never Tobacco Cessation:Ready [...] lt from Last 3 Months Insurance MEDICAID [place] Care Teams Clinical Nursing Professor Relationship Specialty Start Date End Date Provider, No Known [facility] [place] [address] PCP - General 02/08/24
--- OUTSIDE RECORDS SUMMARY | 2025-04-03 09:46 | XMS_ITS | Encounter Summary ---
Author Organization Healthcare Address [address] [place] [address] Care Team Providers Care Maintenance Construction Helper Name Role Phone Molly Louis MD Primary Care Provider [phone] Angela Oleary RN Unavailable Unavailable Rey Wyatt MD Primary Care Provider Reason for Visit * Reason Onset Date Comments Med Refill 03/23/2024 Encounter Details Date Type Department Care Team ([facility] Contact Info) Description 03/23/2024 Refill Medical Office Building Obstetrics and Gynecology [address] [facility], [address] [place] [address] Shalonda Davies, TAX ANALYST [address] [facility] [address] [place] [address] Social History Tobacco Use Types [...] How often do you attend chur or methodist services? Never 02/22/2024 Do you belong to any clubs o r organizations such as orthodoxy groups, unions, fraternal or athletic groups, or [...] Recorded Patient Health Questionnaire-2 Score 0 02/17/2024 [facility] - Occupational [...] in a assisted (including now)? No 02/09/2024 [place] Depression Scale Answer Date Recorded [place] Depression Scale Total 8 02/22/2024 The thought [...] drink first t casi in the morning (EYE-MACHINE OPERATOR GENERAL) to steady your nerves or to get [...] 04/04/2025 4:00 PM EDT Office Visit [facility] Medicine Specialties [address], [address] [place] [address] Zia Hollis MD [address] [place] [phone] 04/17/2025 2:00 PM EDT Office Visit [facility] Medicine Specialties [address], 2nd [place] [address] Silverio Tam PA [address] [place] [address] 06/15/2025 12:30 PM EST Office Visit [facility] [address], [address] [place] [address] Kendy Sanchez APRN [address] [place] [address] 06/19/2025 8:00 AM EST Office Visit [facility] [place] [address], [address] [place] [address] Courtney Torres MD [address] [place] [address] 06/19/2025 12:30 PM EST Appointment [facility] Neuro[facility]iology [address] [place] [address] 06/21/2025 12:30 PM EST Appointment [facility] [address] [place] [address] documented as of this encounter Goals Goal [...] documented as of this encounter Care Teams Maintenance Construction Helper Relationship Specialty Start Date End Date Molly Louis MD [address] [place] [address] PCP - General Family Medicine 02/09/24 11/15/24 Rey Wyatt MD [address] [place] [address] [place] [address] PCP - General 11/16/24 Angela Oleary, RN [facility] Registered Nurse Cardiology 02/17/24 documented as of this encounter
--- OUTSIDE RECORDS SUMMARY | 2025-04-03 09:47 | XMS_ITS | Encounter Summary ---
Author Organization Healthcare Address [address] [place] [address] Care Team Providers Care Manager Quality Compliance Name Role Phone Angela Oleary RN Unavailable Unavailable Rey Wyatt MD Primary Care Provider [phone] Encounter Details Date Type Department Care Team (Late st Contact Info) Description 12/28/2024 Results Follow-Up [facility] Medicine Specialties [address], [address] [place] [address] Estuardo Jon [address] [place] [address] Social History Tobacco Use Types [...] often do you attend chur ch or worship services? Never 02/22/2024 Do you [...] 12/15/2024 [facility] - [...] in a longterm (including now)? No 02/09/2024 [place] Depression Scale Answer Date Recorded [place] Depression Scale Total 6 08/08/2024 The thought [...] drink first t casi in the morning (EYE-CURATOR) to steady your nerves or to get [...] Description 04/04/2025 4:00 PM EDT Office Visit [facility] Medicine Specialties [address], [address] [place] [address] Zia Hollis MD [address] [place] [address] 04/17/2025 2:00 PM EDT Office Visit [facility] Medicine Specialties [address], [address] [place] [address] Silverio Tam PA [address] [place] [address] 06/15/2025 12:30 PM EST Office Visit [facility] [address], [address] [place] [address] Kendy Sanchez APRN [address] [place] [address] 06/19/2025 8:00 AM EST Office Visit [facility] [place] [address], [address] [place] [address] Courtney Torres MD [address] [place] [address] 06/19/2025 12:30 PM EST Appointment [facility] [address] [place] [address] 06/21/2025 12:30 PM EST Appointment [facility] [address] [place] [address] documented as of this encounter Goals Goal [...] as of this encounter Care Teams Manager Quality Compliance Relationship Specialty Start Date End Date Rey Wyatt MD [address] [facility] [address] [place] [address] PCP - General 11/16/24 Angela Oleary, RN [facility] Registered Nurse Cardiology 02/17/24 documented as of this encounter
--- OUTSIDE RECORDS SUMMARY | 2025-04-03 09:47 | XMS_ITS | Encounter Summary ---
Author Organization Healthcare Address [address] [place] [address] Care Team Providers Care Supervisor Backfilling Name Role Phone Angela Oleary RN Unavailable Unavailable Rey Wyatt MD Primary Care Provider [phone] Encounter Details Date Type Department Care Team [...] How often do you attend [facility] or anabaptism services? Never 02/22/2024 Do you [...] health care facility (including now)? No 02/09/2024 [place] Depression Scale [...] drink first t casi in the morning (EYE-WATER SANDER) to steady your nerves or to get [...] Description 04/04/2025 4:00 PM EDT [facility] [address], [address] [place] [address] Zia Hollis MD [address] [place] [address] 04/17/2025 2:00 PM EDT Office Visit [facility] Medicine Specialties [address], [address] [place] [address] Silverio Tam PA [address] [place] [address] 06/15/2025 12:30 PM EST Office Visit [facility] [address], [address] [place] [address] Kendy Sanchez, TREATMENT MANAGER [address] [place] [address] 06/19/2025 8:00 AM EST Office Visit [facility] [place] [address], [address] [place] [address] Courtney Torres MD [address] [place] [address] 06/19/2025 12:30 PM EST Appointment [facility] Neuro[facility] [address] [place] [address] 06/21/2025 12:30 PM EST Appointment [facility] [address] [place] [address] documented as of this encounter Goals Goal [...] as of this encounter Care Teams Supervisor Backfilling Relationship Specialty Start Date End Date Rey Wyatt MD [address] [place] [address] PCP - General 11/16/24 Angela Oleary, RN [facility] Registered Nurse Cardiology 02/17/24 documented as of this encounter
--- OUTSIDE RECORDS SUMMARY | 2025-04-03 09:47 | XMS_ITS | Encounter Summary ---
Author Organization Healthcare Address [address] [place] [address] Care Team Providers Care Wood Tank Builder Name Role Phone Molly Louis MD Primary Care Provider [phone] Angela Oleary RN Unavailable Unavailable Rey Wyatt MD Primary Care Provider [phone] Reason for Visit * Reason Onset Date Comments Med Refill 03/03/2024 Encounter Details Date Type Department Care Team ([facility] Contact Info) Description 03/03/2024 Refill Medical Office Building Obstetrics and Gynecology [address] [facility], [address] [place] [address] Earle Cochran MD [address] [facility] [address] [place] [address] Supervision of high risk in [...] How often do you attend chur or religion services? Never 02/22/2024 Do you [...] Recorded Patient Health Questionnaire-2 Score 0 02/17/2024 [facility] of Occupat ional [...] in a snf (including now)? No 02/09/2024 [place] Depression Scale Answer Date Recorded [place] Depression Scale Total 8 02/22/2024 The thought [...] requesting to speak with a nurse- see [employer] [facility] for details about symptoms she is experiencing. * Telephone Encounter - Luh Keenan RN - 03/04/2024 1:56 PM EDT Patient has refills on file. Needs to call pharmacy. Luh Z Shlomo, RN documented in this encounter Plan of Treatment Upcoming Encounters Date Type Department Care Team (Late st Contact Info) Description 04/04/2025 4:00 PM EDT Office Visit [facility] Medicine Specialties [address], [address] [place] [address] Zia Hollis MD [address] [place] [address] 04/17/2025 2:00 PM EDT Office Visit [facility] Medicine Specialties [address], 2nd [place] [address] Silverio Tam PA [address] [place] [address] 06/15/2025 12:30 PM EST Office Visit [facility] [address], [address] [place] [address] Kendy Sanchez APRN [address] [place] [address] 06/19/2025 8:00 AM EST Office Visit [facility] [place] [address] [place] [address] Courtney Torres MD [address] [place] [address] 06/19/2025 12:30 PM EST Appointment [facility] Neurophysiology [address] [place] [address] 06/21/2025 12:30 PM EST Appointment [facility] Neurophysiology [address] [facility] [address] [place] [address] documented as of this encounter Goals Goal [...] documented as of this encounter Care Teams Wood Tank Builder Relationship Specialty Start Date End Date Molly Louis MD [address] [place] [address] PCP - General Family Medicine 02/09/24 11/15/24 Rey Wyatt MD [address] [place], [place] [phone] PCP - General 11/16/24 Angela Oleary, RN [facility] Registered Nurse Cardiology 02/17/24 documented as of this encounter
--- OUTSIDE RECORDS SUMMARY | 2025-04-03 09:47 | XMS_ITS | Encounter Summary ---
Author Organization Healthcare Address [address] [place] [address] Care Team Providers Care Spline Rolling Machine Job Setter Name Role Phone Molly Louis MD Primary Care Provider [phone] Angela Oleary RN Unavailable Unavailable Rey Wyatt MD Primary Care Provider [phone] Reason for Visit * Reason Onset Date Comments Med Refill 03/03/2024 Encounter Details Date Type Department Care Team ([facility] Contact Info) Description 03/03/2024 Refill P[facility] A Inpatient [address] [place], [place] [address] Paris Marion MD [address] [place] [address] Social History Tobacco Use Types Packs/Day Years [...] Score 0 02/17/2024 [facility] - Occupational Stress Questionnaire Answer [...] in a alf (including now)? No 02/09/2024 [place] Depression Scale Answer Date Recorded [place] Depression Scale Total 8 02/22/2024 The thought [...] Description 04/04/2025 4:00 PM EDT Office Visit [facility] Medicine Specialties [address] [place] [address] Zia Hollis MD [address] [place] [address] 04/17/2025 2:00 PM EDT [facility] Visit [facility] Medicine Specialties [address], [address] [place] [address] Silverio Tam PA [address] [place] [address] 06/15/2025 12:30 PM EST [facility] Visit [facility] [address], [address] [place] [address] Kendy Sanchez APRN [address] [place] [address] 06/19/2025 8:00 AM EST Office Visit [facility] [place] [address] [place] [address] Courtney Torres MD [address] [place] [address] 06/19/2025 12:30 PM EST Appointment [facility] Neuro[facility]iology [address] [place] [address] 06/21/2025 12:30 PM EST Appointment [facility] [address] [place] [address] documented as of this encounter Goals Goal [...] 03/12/2024 3:23 AM EDT Gastrointestinal Rule-Out 03/11/2024 03/12/2024/2024 7:24 PM EDT Respiratory Rule-Out 05/25/2024 05/25/2024 [...] documented as of this encounter Care Teams Spline Rolling Machine Job Setter Relationship Specialty Start Date End Date Molly Louis MD [address] [place] [address] PCP - General Family Medicine 02/09/24 11/15/24 Rey Wyatt MD [address] [place] [address] PCP - General 11/16/24 Angela Oleary, RN [facility] Registered Nurse Cardiology 02/17/24 documented as of this encounter
--- OUTSIDE RECORDS SUMMARY | 2025-04-03 09:47 | XMS_ITS | Encounter Summary ---
Author Organization Healthcare Address [address] [place] [id number] Care Team Providers Care Coil Repair Technician Name Role Phone Angela Oleary RN Unavailable Unavailable Rey Wyatt MD Primary Care Provider [phone] Encounter Details Date Type Department Care Team (Late st Contact Info) Description 01/18/2025 Results Follow-Up [facility] [address] [place] [address] Abundio Kyle [address] [place], [place] [phone] Social History Tobacco Use Types Packs/Day Years [...] Patient Health Questionnaire-2 Score 0 12/15/2024 [facility] - Occupational Stress Questionnaire [...] in a retirement (including now)? No 02/09/2024 [place] Depression Scale Answer Date Recorded [place] Depression Scale Total 6 08/08/2024 The thought [...] drink first t casi in the morning (EYE-COAL MINE INSPECTOR) to steady your nerves or to [...] Description 04/04/2025 4:00 PM EDT Office Visit [facility] Medicine Specialties [address] [place] [address] Zia Hollis MD [address] [place], [place] [phone] 04/17/2025 2:00 PM EDT Office Visit [facility] Medicine Specialties [address], [address] [place] [address] Silverio Tam PA [address] [place] [address] 06/15/2025 12:30 PM EST [facility] [address], [address] [place] [address] Kendy Sanchez APRN [address] [place] [address] 06/19/2025 8:00 AM EST Office Visit [facility] [place] [address] [facility], [address] [place] [address] Courtney Torres MD [address] [place] [address] 06/19/2025 12:30 PM EST Appointment [facility] Neurophysiology [address] [place] [address] 06/21/2025 12:30 PM EST Appointment [facility] Neuro[facility] [address] [place] [address] Scheduled Orders Name Type Priority Associated Diagnoses Orde r Schedule TSH Lab Routine Thyrotoxicosis with Triica thyroiditis Expected: 03/03/2025 (Approximate), Expires: 07/22/2026 T4, [...] documented as of this encounter Care Teams Coil Repair Technician Relationship Specialty Start Date End Date Rey Wyatt MD [address] [place] [address] PCP - General 11/16/24 Angela Oleary, RN [facility] Registered Nurse Cardiology 02/17/24 documented as of this encounter
--- OUTSIDE RECORDS SUMMARY | 2025-04-03 09:47 | XMS_ITS | Encounter Summary ---
Author Organization Healthcare Address [address] [place] [id number] Care Team Providers Care Copy Messenger Name Role Phone Molly Louis MD Primary Care Provider [phone] Angela Oleary RN Unavailable Unavailable Rey Wyatt MD Primary Care Provider [phone] Reason for Visit * Reason Onset Date Comments Med Refill 07/19/2024 Encounter Details Date Type Department Care Team (Late st Contact Info) Description 07/19/[address], [address] [place] [address] Paris Marion MD [address] [place] [phone] Social History Tobacco Use Types Packs/Day Years [...] Recorded Patient Health Questionnaire-2 Score 0 06/22/2024 [facility] of Occupat ional [facility] - Occupational Stress Questionnaire Answer Date [...] in a fpc (including now)? No 02/09/2024 [place] Depression Scale Answer Date Recorded [place] Depression Scale Total 8 02/22/2024 The thought [...] drink first t casi in the morning (EYE-BOLT MAN) to steady your nerves or to get [...] Description 04/04/2025 4:00 PM EDT Office Visit [facility] Medicine Specialties [address] [place] [address] Zia Hollis MD [address] [place] [address] 04/17/2025 2:00 PM EDT Office Visit [facility] Medicine Special[facility] [address] [place] [address] Silverio Tam PA [address] [place] [address] 06/15/2025 12:30 PM EST Office Visit [facility] [address] [place] [address] Kendy Sanchez APRN [address] [place] [address] 06/19/2025 8:00 AM EST Office Visit [facility] [place] [address], [address] [place] [address] Courtney Torres MD [address] [place] [address] 06/19/2025 12:30 PM EST Appointment [facility] Neuro[facility]iology [address] [place] [address] 06/21/2025 12:30 PM EST Appointment [facility] [address] [place] [address] documented as of this encounter [...] documented as of this encounter Care Teams Copy Messenger Relationship Specialty Start Date End Date Molly Louis MD [address] [place] [address] PCP - General Family Medicine 02/09/24 11/15/24 Rey Wyatt MD [address] [place] [address] PCP - General 11/16/24 Angela Oleary, RN [facility] Registered Nurse Cardiology 02/17/24 documented as of this encounter
--- OUTSIDE RECORDS SUMMARY | 2025-04-03 09:47 | XMS_ITS | Encounter Summary ---
Author Organization Healthcare Address [address] [place] [address] Care Team Providers Care Stagecraft Teacher Name Role Phone Angela Oleary RN Unavailable Unavailable Rey Wyatt MD Primary Care Provider [phone] Encounter Details Date Type Department Care Team [...] week 02/22/2024 How often do you attend [facility] or yazdanism services? Never 02/22/2024 Do you [...] in a correction (including now)? No 02/09/2024 [place] Depression Scale Answer Date Recorded [place] Depression Scale Total 6 08/08/2024 The thought [...] drink first t casi in the morning (EYE-CUSTOMS COLLECTOR) to steady your nerves or to get [...] Description 04/04/2025 4:00 PM EDT [facility] [address] [place] [address] Zia Hollis MD [address] [place] [address] 04/17/2025 2:00 PM EDT Office Visit [facility] Medicine Specialties [address], [address] [place] [address] Silverio Tam PA [address] [place] [address] 06/15/2025 12:30 PM EST Office Visit [facility] [address], [address] [place] [address] Kendy Sanchez, FOUNTAIN HELPER [address] [place] [address] 06/19/2025 8:00 AM EST Office Visit [facility] [place] [address], [address] [place] [address] Courtney Torres MD [address] [place] [address] 06/19/2025 12:30 PM EST Appointment [facility] [address] [place] [address] 06/21/2025 12:30 PM EST Appointment [facility] [address] [place] [address] documented as of this encounter Goals Goal [...] documented as of this encounter Care Teams Stagecraft Teacher Relationship Specialty Start Date End Date Rey Wyatt MD [address] [facility] [address] [place] [address] PCP - General 11/16/24 Angela Oleary, RN [facility] Registered Nurse Cardiology 02/17/24 documented as of this encounter
--- OUTSIDE RECORDS SUMMARY | 2025-04-03 09:47 | XMS_ITS | Clinical Summary ---
Author Organization [employer] ([place], [place], [place], [place]) Address [address] [place] [address] Care Team Providers Care Bass Mechanism Maker Name Role Phone Molly Louis MD Primary [...] Date Guerrero rded Speak language other than Slovenian at home Not on file 08/13/2023 Want [...] Info) Description 04/17/2025 12:30 PM EDT Appointment [facility] Procedure Lab [address] [place] [address] Health Maintenance Due Date Last Done Comments Tobacco Cessation Counseling and Screening (12+) 2010 HIV Screening 2013 Hepatitis C Screening 2016 Pneumococcal Vaccine: 0-49 Y ears (1 of 2 - PCV) 2017 Lipid Panel 2018 Pap Smear 2019 DTAP/TDAP/TD VACCINES (3 - Td or Tdap) 02/21/2020, 04/26/2002 COVID-19 VACCINE (2 - season) 2025 Influenza Vaccine (#1) 2025 Medical Devices Implanted Type Area Shot Packer Device Identifier Shelf Expiration Date Model / Serial / Lot K-Wire [id number] - [id number] Implanted:Qty: 1 on 08/04/2022 by Rex Rene MD at [facility] IMPLANTS Right: Hand ANNIA[employer] [id number] / / Wire K-Wire 1.6mm - [id number] Implanted:Qty: 1 on 08/04/2022 by Rex Rene MD at [facility] IMPLANTS Right: Hand BUCK MED GRP:BUCK MED TECH / / Insurance [facility] Advance Directives For more information, please contact: [phone] * Full Code (Latest Code Status on File) Date Activated Date Inactivated Comments 08/04/2022 6:03 AM 08/04/2022 11:35 AM Care Teams Bass Mechanism Maker Relationship Specialty Start Date End Date Molly Louis MD [address] [place] [address] [address] [place] [address] PCP - General 08/22/24
--- OUTSIDE RECORDS SUMMARY | 2025-04-03 09:47 | XMS_ITS | Clinical Summary ---
Author Organization [facility] Address [address] [place] [address] Care Team Providers Care Ad Setter Name Role Phone Angela Oleary RN Unavailable Unavailable Rey Wyatt MD Primary Care Provider [phone] Allergies Active Allergy Reactions Criticality Noted Date [...] Active Additional Information Patient not taking.Reported on 03/15/2025 sodium chloride (Dekorra Nasal [place]) 0.65 % nasal spray Administer 1 spray into each nostril if needed for congestion. 30 mL 12 04/12/20 24 Active Blood Glucose Monitoring Suppl (OneTouch Verio Reflect) w/Device kit 04/14/20 24 Active OneTouch Verio test strip 1 each by Other route if needed. 04/14/20 24 Active Lancets (OneTouch Delica Plus [id number]) misc 04/14/20 24 Active ibuprofen 600 MG tablet Take 1 tablet (600 mg) by mouth every 6 (six) hours if needed for mild pain. 30 tablet 1 07/18/20 Active Additional Information Patient not taking.Reported on 03/15/2025 senna-docusate (Codi-Colace) 8.6-50 MG tablet Take 1 tablet by mouth 1 (one) time each day. 30 tablet 1 07/18/20 Active Additional Information Patient not taking.Reported on 03/15/2025 acetaminophen (Tylenol) 325 MG capsule Take 2 capsules (650 mg) by mouth every 6 (six) hours if needed for mild pain. 30 capsule 1 07/18/20 24 Active ondansetron (Zofran) 4 MG tablet Take 1 tablet (4 mg) by mouth every 8 (eight) hours if needed for nausea or vomiting. 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 20 tablet 5 12/31/19 25 Active levothyroxine (Synthroid, Levoxyl) 25 MCG tablet Take 1 tablet by mouth daily. 02/11/20 25 Active simethicone (Mylicon) 80 MG chewable tablet Chew 1 tablet every 6 hours as needed. Active oral electrolytes (Thermotabs) tablet Take 1 tablet by mouth 2 times a day. 60 tablet 1 02/17/20 25 Active Vit-Fe Fumarate-FA ( Vitamins) 28-0.8 MG tablet Take 1 tablet by mouth 1 (one) time each day. 30 tablet 11 03/17/20 24 025 Additional Information Patient not taking.Reported on 03/15/2025 Hospital, Clinic, or Other Facility Administered Medication [...] Encounters Date Type Department Care Team Description 03/15/2025 3:30 PM EDT Consult [place] [facility] [address], [address] [place] [address] Knedy Sanchez APRN Syncope, unspecified syncope type (Primary Dx) 03/15/2025 Travel 03/01/2025 10:13 AM EDT - 03/01/2025 11:59 PM EDT Hospital Encounter [facility] Pul[facility] Function Testing [address] [place] [address] Dysautonomia-like disorder Discharge Disposition: Home or Self Care 03/01/2025 Travel 02/24/2025 Travel 02/16/2025 1:20 PM EDT Office Visit [facility] [address], [address] [place] [address] Courtney Torres MD Syncope and collapse (Primary Dx); Dysautonomia-like disorder 02/16/2025 Telephone [facility] [address], [address] [place] [address] None, None 02/16/2025 Travel 02/15/2025 Travel 01/18/2025 Results Follow-Up [facility] Endocrinology [address] [place] [address] Abundio Kyle 01/17/2025 6:36 AM EDT - 01/17/2025 11:59 PM EDT Hospital Encounter [facility] [address] [place] [phone] Cody Barnett MD Abdominal pain, epigastric; Diarrhea, unspecified type; Weight loss; Hematochezia Discharge Disposition: Home or Self Care 01/17/2025 Travel from Last 3 Months Immunizations Immunization [...] Tristan craft Liver disease Brother 2 Scott ADD / ADHD Child Asthma Child Heart attack Father Sahil reynoso [...] 0 12/15/2024 [facility] Occupational Stress Questionnaire Answer Date [...] in a retirement (including now)? 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) to steady your nerves or to [...] Pulse 82 03/15/2025 2:26 PM EDT Temperature 37.1 C (98.7 F) 01/17/2025 7:00 AM EDT Respiratory Rate 18 01/17/2025 7:00 AM EDT Oxygen Saturation 98% 03/15/2025 2:26 PM EDT Inhaled Oxygen Concentration - - Weight 69.9 kg (154 lb 1.6 oz) 03/15/2025 2:26 P M EDT Height 167.6 cm (5' 6 ) 03/15/2025 2:26 PM EDT Body Mass Index 24.87 03/15/2025 2:26 PM EDT Plan of Treatment Upcoming Encounters Date Type Department Care Team (Late st Contact Info) Description 04/04/2025 4:00 PM EDT Office Visit [facility] [place] [address], [address] [place] [address] Zia Hollis MD [address] [place] [address] 04/17/2025 2:00 PM EDT Office Visit [facility] [address], [address] [place] [address] Silverio Tam PA [address] [place] [address] 06/15/2025 12:30 PM EST [facility] [address], [address] [place] [address] Kendy Sanchez APRN [address] [place] [address] 06/19/2025 8:00 AM EST Office Visit [facility] [place] [address], [address] [place] [address] Courtney Torres MD [address] [place] [address] 06/19/2025 12:30 PM EST Appointment [facility] [address] [place] [address] 06/21/2025 12:30 PM EST Appointment [facility] [address] [place] [address] Health Maintenance Due Date Last Done Comments [...] - Td or Tdap) 02/21/2020 02/20/2010, 04/26/2002 [id number] Vaccine (2 - Jasmine risk series) 03/21/2021 [...] (TRAB)(SO) Routine 01/17/2025 8:47 AM EDT Hyperthyroidism HIV 1/2 ANTIBODY/ANTIGEN SCREEN WITH REFLEX TO [...] from the original result were not included. [facility] Cardiopulmonary Exercise Testing Laboratory The risks [...] sinus rhythm at 71 bpm. Heart Rate [place] unable to be determined Pulmonary Performance/Ventilatory Response: [...] at peak exercise was 87 L/min (Breathing [place] Ratio: 70%). VE/VCO2 slope unable to be obtained. Conclusion: Due to early termination of the test (after 1:30-2:00 minutes) unable to accurately interpret the findings. Can consider repeating in the future if the patient is able to exercise. Tay Barraza DO Manager Batterylost charge card clerk Cardiovascular Medicine Director of Sports Cardiology [facility] [place] Courtney Torres MD PFT ORDERABLES Final Result * (ABNORMAL) Cardiopulmonary Exercise Test (03/01/2025 11:19 AM EDT) OFU4CQT 4.85(A) 3.04 - 4.60 L VYAIRE PFT FEV1 PRE 3.42 2.62 - 3.88 L VYAIRE PFT FEV1/FVC PRE 70.53(A) 74.27 - 94.96 % VYAIRE PFT WMW41-01% PRE 2.34(A) 2.43 - 5.18 L/s VYAIRE PFT PEF PRE 8.68(A) 5.24 - 8.66 L/s VYAIRE PFT TSH2NUB 126.25(A) 114.18 - 114.18 L/min VYAIRE PFT Anatomical Region Laterality Modality PFT 03/01/2025 10:2 6 AM EDT Narrative 03/01/2025 11:43 AM EDT Images from the original result were not included. [facility] Cardiopulmonary Exercise Testing Laboratory The risks [...] sinus rhythm at 71 bpm. Heart Rate [place] unable to be determined Pulmonary Performance/Ventilatory Response: [...] at peak exercise was 87 L/min (Breathing [place] Ratio: 70%). VE/VCO2 slope unable to be obtained. Conclusion: Due to early termination of the test (after 1:30-2:00 minutes) unable to accurately interpret the findings. Can consider repeating in the future if the patient is able to exercise. Tay Barraza DO Manager Batterylost charge card clerk Cardiovascular Medicine Director of Sports Cardiology [facility] [place] Courtney Torres MD PFT ORDERABLES Final Result * Catecholamines, fractionated, plasma (02/16/2025 2:17 PM EDT) CATECHOLAMINES, INTERP See Note 02/27/2025 12:36 AM EDT [facility] (BEAKER) DOPAMINE <130 <=240 pmol/L 02/27/2025 12:36 AM EDT [facility] (BEAKER) EPINEPHRINE 167 <=330 pmol/L 02/27/2025 12:36 AM EDT [facility] (BEAKER) NOREPINEPHRINE 1597 1050 - 4800 pmol/L 02/27/2025 12:36 AM EDT [facility] ([facility]AKER) Blood Venous blood specimen / Unknown Venipuncture / Unknown 02/16/2025 2:17 PM EDT 02/16/2025 2:17 PM EDT Narrative [facility] (BEAKER) - 02/27/2025 12:36 AM EDT INTERPRETIVE INFORMATION:Epinephrine [...] reference intervals for this test in the [facility] Test Directory (Business Combined). This test was developed and its performance characteristics determined by [facility]. It has not been cleared or approved by the US Food and Drug Administration. This test was performed in a CLIA certified laboratory and is intended for clinical purposes. Performed By: [id number] [address] [place] [address] Trouble Lineman: Wilber Pardo MD, PhD CLIA Number: [id number] Courtney Torres MD LAB BLOOD ORDERABLES Final Re sult Performing Organization Address [facility]/ZIP Co de Phone Number [facility] [place] [address] * Tryptase (02/16/2025 2:17 PM EDT) TRYPTASE 4.3 <=10.9 ug/L 02/19/2025 2:04 PM EDT [facility] ([facility]) Serum Venous blood specimen / Unknown 02/16/2025 2:17 PM EDT 02/16/2025 2:17 PM EDT Narrative [facility]) - 02/19/2025 2:04 PM EDT Performed By: [facility] [address] [place] [address] Trouble Lineman: Wilber Pardo MD, PhD CLIA Number: [id number] Courtney Torres MD LAB BLOOD ORDERABLES Final Re sult Performing Organization Address [facility]/ZIP Co de Phone Number [facility]) [address] [place] [address] * (ABNORMAL) Ferritin, Serum (02/16/2025 2:17 PM EDT) Ferritin, Serum 6(L) 13 - 150 ng/mL 02/16/2025 6:17 PM EDT [facility] Blood Venous blood specimen / Unknown Venipuncture / Unknown 02/16/2025 2:17 PM EDT 02/16/2025 2:17 PM EDT Result [facility] Courtney Torres MD LAB BLOOD ORDERABLES Final Re sult Performing Organization Address [facility] Co de Phone Number [facility] [address] [place] [address] * Cortisol (02/16/2025 2:17 PM EDT) Cortisol 2.80 Before 10am: 3.7 - 19.4. After 5pm: 2.9 - 17.3 ug/dL 02/16/2025 6:36 PM EDT [facility] Comment:Testing performed on [employer], standardized against FDC Reference Standard concentration values assigned by LC-MS/MS and verified by BCR 192 and BCR 193 certified reference materials. Blood Venous blood specimen / Unknown Venipuncture / Unknown 02/16/2025 2:17 PM EDT 02/16/2025 2:17 PM EDT Result [facility] Courtney Torres MD LAB REF LAB BLOOD AND FLUID O RD Final Result Performing Organization Address [facility] Co de Phone Number [facility] [address] [place] [address] * Capsule Endoscopy (01/19/2025 3:17 PM EDT) [...] - 4.3 pg/mL 01/18/2025 11:[address] [facility] ([place]) Blood Venous blood specimen / Unknown Venipuncture / Unknown 01/17/2025 8:47 AM EDT 01/17/2025 8:[address] [facility] ([place]) - 01/18/2025 11:56 PM EDT REFERENCE INTERVAL: Triiodothyronine, Free (Free T3) Access complete set of age- and/or gender-specific reference intervals for this test in the [facility] Test Directory (Business Combined). Performed By: [facility] [address] [place] [address] Trouble Lineman: Wilber Pardo MD, PhD CLIA Number: [id number] Saskia Garcia MD LAB BLOOD ORDERABLES Final Resul t Performing Organization Address [facility]/ZIP Co de Phone Number [facility]) [address] [place] [address] * Thyroid Stimulating Hormone Receptor Antibody (01/17/2025 8:47 AM EDT) TSH Receptor Antibody <1.10 <=1.75 IU/L 01/19/2025 1:[address] [facility] [employer] ([facility]) Serum Venous blood specimen / Unknown 01/17/2025 8:47 AM EDT 01/17/2025 8:[address] [facility]) - 01/19/2025 1:20 AM EDT Performed By: [facility] [address] [place] [address] Trouble Lineman: Wilber Pardo MD, PhD CLIA Number: [id number] Saskia Garcia MD LAB BLOOD ORDERABLES Final Resul t [facility] [employer]) [address] [place] [address] * Thyroid stimulating immunoglobulin (01/17/2025 8:47 AM EDT) TSI Result 0.11 <=0.54 IU/L 01/19/2025 12:49 AM EDT [facility] ([place]) Serum Venous blood specimen / Unknown 01/17/2025 8:47 AM EDT 01/17/2025 8:47 AM EDT Narrative [facility]) - 01/19/2025 12:49 AM EDT INTERPRETIVE [...] medical history, and other findings. Performed By: [facility] [address] [place], [place] [id number] Trouble Lineman: Wilber Pardo MD, PhD CLIA Number: [id number] us Saskia Garcia MD LAB BLOOD ORDERABLES Final Resul t [facility]) [address] [place] [id number] * TSH (01/17/2025 8:47 AM EDT) Thyroid Stimulating Hormone, Plasma 1.83 0.40 - 4.20 uIU/mL 01/17/2025 11:38 AM EDT [facility] Blood Venous blood specimen / Unknown Venipuncture / Unknown 01/17/2025 8:47 AM EDT 01/17/2025 8:47 AM EDT Narrative [facility] - 01/17/2025 11:38 AM EDT Trimester Specific Ranges TSH ( IU/mL) 1st Trimester 0.1 - 3.0 2nd Trimester 0.19 - 4.06 3rd Trimester 0.3 - 3.7 Roland Wooten MD LAB BLOOD ORDERABLES Final Resu lt Performing Organization Address City/[facility]/ZIP Co de Phone Number [facility] [address] [place] [address] * T4, free (01/17/2025 8:47 AM EDT) [facility] Free T4, Plasma 0.8 0.8 - 1.7 ng/dL 01/17/2025 11:38 AM EDT [facility] Blood Venous blood specimen / Unknown Venipuncture / Unknown 01/17/2025 8:47 AM EDT 01/17/2025 8:47 AM EDT Narrative [facility] - 01/17/2025 11:38 AM EDT Free T4 Trimester Specific Ranges 1st Trimester 0.9 - 1.50 ng/dL 2nd Trimester 0.7 - 1.40 ng/dL 3rd Trimester 0.7 - 1.24 ng/dL Roland Wooten MD LAB BLOOD ORDERABLES Final Resu lt Performing Organization Address [facility] Co de Phone Number [facility] [address] [place] [address] * HIV 1 & 2 Antibody/Antigen Screen (04/18/2024 10:13 AM EDT) [facility] HIV 1 & 2 Antibody/Antigen Screen Non Reactive Non Reactive 04/18/2024 12:07 PM EDT [facility] Comment:Screening for HIV 1 & 2 antibodies, and P24 antigen is NONREACTIVE. No confirmatory testing is required. Blood Venous blood specimen / Unknown Venipuncture / Unknown 04/18/2024 10:13 AM EDT 04/18/2024 10:13 AM EDT Shalonda Davies APRN LAB BLOOD ORDERABLES Susannah l Result Performing Organization Address City/[facility] Co de Phone Number [facility] [address] [place] [address] * Hepatitis C Antibody - ED (02/07/2024 10:11 PM EDT) [facility] Hepatitis C Antibody Negative Negative 02/07/2024 11:11 PM EDT [facility]ALTH[facility] Blood Venous blood specimen / Unknown Venipuncture / Unknown 02/07/2024 10:11 PM EDT 02/07/2024 10:18 PM EDT us Mark Roger MD LAB BLOOD ORDERABLES Final Resu lt [facility]ARE [facility] [address] [place] [phone] from Last 3 Months or Most Recently [...] Patient has decision-making capacity? Yes Care Teams Ad Setter Relationship Specialty Start Date End Date Rey Wyatt MD [address] [place] [address] PCP - General 11/16/24 Angela Oleary, RN [facility] Registered Nurse Cardiology 02/17/24
--- OUTSIDE RECORDS SUMMARY | 2025-04-03 09:47 | XMS_ITS | Encounter Summary ---
Author Organization Healthcare Address [address] [place] [address] Care Team Providers Care Upkeep Worker Name Role Phone Angela Oleary RN Unavailable Unavailable Rey Wyatt MD Primary Care Provider [phone] Encounter Details Date Type Department Care Team (Latest Contact Info) Description 03/15/2025 Travel Social History Tobacco Use Types Packs/Day Years Used Date Smoking Tobacco: Former Cigarettes 0.3 10 2 2021 Passive Smoke Exposure: Never Smokeless Tobacco: Former Comments:History of vaping a [...] week 02/22/2024 How often do you attend [facility] or yazdanism services? Never 02/22/2024 Do [...] Patient Health Questionnaire-2 Score 0 12/15/2024 [facility] - Occupational Stress [...] a senior care (including now)? 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) to steady your nerves or to [...] Description 04/04/2025 4:00 PM EDT Office Visit [facility] Medicine Specialties [address] [place] [address] Zia Hollis MD [address] [place] [address] 04/17/2025 2:00 PM EDT Office Visit [facility] Specialties [address], [address] [place] [address] Silverio Tam PA [address] [place] [address] 06/15/2025 12:30 PM EST Office Visit [facility] [address], [address] [place] [address] Kendy Sanchez APRN [address] [place] [address] 06/19/2025 8:00 AM EST Office Visit [facility] [place] [address] [place] [address] Courtney Torres MD [address] [place] [address] 06/19/2025 12:30 PM EST Appointment [facility] [address] [place] [address] 06/21/2025 12:30 PM EST Appointment [facility] [address] [place] [address] documented as of this encounter Goals Goal [...] documented as of this encounter Care Teams Upkeep Worker Relationship Specialty Start Date End Date Rey Wyatt MD [address] [facility] [address] [place] [address] PCP - General 11/16/24 Angela Oleary, RN [facility] Registered Nurse Cardiology 02/17/24 documented as of this encounter
--- OUTSIDE RECORDS SUMMARY | 2025-04-03 09:47 | XMS_ITS | Encounter Summary ---
Author Organization Healthcare Address [address] [place] [address] Care Team Providers Care Area Coordinator Name Role Phone Pcp, No Primary Care Provider UnavailMolly Newman MD Primary Care Provider [phone] Angela Oleary RN Unavailable Unavailable Rey Wyatt MD Primary Care Provider [phone] Encounter Details Date Type Department Care Team (Late Contact Info) Description 01/22/2024 Orders Only External Location [address] [place] [phone] Provider, External Social History Tobacco Use Types [...] Rico, JANELL 6. Suicidal Behavior (Lifetime) No 2:42 PM EDT Parmjit Rico RN documented as of this encounter Plan of Treatment Upcoming Encounters Date Type Department Care Team (Late Contact Info) Description 04/04/2025 4:00 PM EDT Office Visit [facility] Medicine Specialties [address], [address]nd [place] [address] Zia Hollis MD [address] [place] [address] 04/17/2025 2:00 PM EDT Office Visit [facility] Medicine Specialties [address], [address] [place] [address] Silverio Tam PA [address] [place] [address] 06/15/2025 12:30 PM EST Office Visit [facility] [address], [address] [place] [address] Kendy Sanchez, WATERSHED PROGRAM MANAGER [address] [place] [address] 06/19/2025 8:00 AM EST Office Visit [facility] [place] [address], [address] [place] [address] Courtney Torres MD [address] [place] [address] 06/19/2025 12:30 PM EST Appointment [facility] [address] [place] [address] 06/21/2025 12:30 PM EST Appointment [facility] [address] [place] [address] documented as of this encounter Procedures Procedure [...] documented as of this encounter Care Teams Area Coordinator Relationship Specialty Start Date End Date Pcp, No [address] [place] [address] PCP - General Family Medicine 01/22/24 02/08/24 Molly Louis MD [address] [place] [address] PCP - General Family Medicine 02/09/24 11/15/24 Rey Wyatt MD [address] [place] [address] [address] [place] [address] PCP - General 11/16/24 Angela Oleary, RN [facility] Registered Nurse Cardiology 02/17/24 documented as of this encounter
--- OUTSIDE RECORDS SUMMARY | 2025-04-03 09:47 | XMS_ITS | Encounter Summary ---
Author Organization Healthcare Address [address] [place] [address] Care Team Providers Care Control Systems Designer Name Role Phone Angela Oleary RN Unavailable Unavailable Rey Wyatt MD Primary Care Provider [phone] Encounter Details Date Type Department Care Team ([facility] st Contact Info) Description 02/16/2025 Telephone [facility] [place] [address] [facility], [address] [place] [address] None, None [address] [phone] Social History Tobacco Use Types Packs/Day Years [...] Recorded Patient Health Questionnaire-2 Score 0 12/15/2024 [facility] [...] in a longterm (including now)? 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 Best contact number: [phone] (home) Optimal time of day to reach caller: ANYTIME Additional comments/information from caller: None Note: Please do not reply to this message. Follow-up communication and further actions as a result of this message need to be communicated with the patient directly, if the patient is not active onMyChart. If the patient is active on MyChart, they will receive notification of the communication/outcome via [email or web address]. documented in this encounter Plan of Treatment Upcoming Encounters Date Type Department Care Team (Late st Contact Info) Description 04/04/2025 4:00 PM EDT Office Visit [facility] Medicine Specialties [address], [address]nd [place] [address] Zia Hollis MD [address] [place] [address] 04/17/2025 2:00 PM EDT Office Visit [facility] Medicine Specialties [address], [address] [place] [address] Silverio Tam PA [address] [place] [address] 06/15/2025 12:30 PM EST Office Visit [facility] [address], 1st [place] [address] Kendy Sanchez APRN [address] [place] [address] 06/19/2025 8:00 AM EST Office Visit [facility] [place] [address], [address] [place] [address] Courtney Torres MD [address] [place] [address] 06/19/2025 12:30 PM EST Appointment [facility] [address] [place] [address] 06/21/2025 12:30 PM EST Appointment [facility] [address] [place] [address] documented as of this encounter [...] documented as of this encounter Care Teams Control Systems Designer Relationship Specialty Start Date End Date Rey Wyatt MD [address] [facility] [address] [place] [phone] PCP - General 11/16/24 Angela Oleary, RN [facility] Registered Nurse Cardiology 02/17/24 documented as of this encounter
--- OUTSIDE RECORDS SUMMARY | 2025-04-03 09:47 | XMS_ITS | Encounter Summary ---
Author Organization [employer] ([place], [place], [place], [place]) Address [address] [place] [address] Care Team Providers Care Process Cheese Cooker Name Role Phone Molly Louis MD Primary Care Provider [phone] Encounter Details Date Type Department Care Team (Late st Contact Info) Description 08/22/2024 Outside Orders [facility] Admitting [address] [place] [address] Silverio Tam, PA [address] [place] [address] Esophageal reflux (Primary Dx) Social History Tobacco [...] Date Guerrero rded Speak language other than Marshallese at home Not on file 08/13/2023 Want [...] Info) Description 04/17/2025 12:30 PM EDT Appointment [facility] Procedure Lab [address] [place] [address] documented as of this encounter Results * Helicobacter pylori Ag, Fecal by EIA(SENDOUT) (08/22/2024 11:35 AM EST) Helicobacter pylori Ag, by EIA Negative Negative 08/23/2024 10:57 PM EST [facility] Comment: Performed By: Foodista [address] [place] [address] Leather Stretcher: Wilber Pardo MD, PhD CLIA Number: [id number] Stool 08/22/2024 11:3 5 AM EST 08/22/2024 11:36 AM EST [facility] MICROBIOLOGY - GENERAL ORDERAB LES Final Result [facility] [address] [place] [address], [facility] [phone] * Calprotectin, Fecal by Immunoassay(SENDOUT) (08/22/2024 11:35 AM EST) Calprotectin, Fecal 26 <=49 ug/g 08/26/2024 8:14 AM EST [facility] Comment: REFERENCE INTERVAL: Calprotectin, Fecal by Immunoassay Less than 50 ug/g........Normal 50-120 ug/g..............Borderline elevated, test should be re-evaluated in 4-6 weeks. 121 ug/g or greater......Elevated Performed By: [facility] [address] [place] [address] Leather Stretcher: Wilber Pardo MD, PhD CLIA Number: [id number] Stool 08/22/2024 11:3 5 AM EST 08/22/2024 11:36 AM EST us [facility] MICROBI[facility] - GENERAL ORDERAB LES Final Result Performing Organization Address City/State/[facility] Co de Phone Number [facility] [address] [phone] documented in this encounter Visit Diagnoses Diagnosis Esophageal reflux- Primary documented in this encounter Care Teams Process Cheese Cooker Relationship Specialty Start Date End Date Molly Louis MD [address] [place] [address] PCP - General 08/22/24 documented as of this encounter
--- OUTSIDE RECORDS SUMMARY | 2025-04-03 09:47 | XMS_ITS | Encounter Summary ---
Author Organization Healthcare Address [address] [place] [address] Care Team Providers Care Rabies Inspector Name Role Phone Angela Oleary RN Unavailable Unavailable Rey Wyatt MD Primary Care Provider [phone] Encounter Details Date Type Department Care Team (Late st Contact Info) Description 12/20/2024 Results Follow-Up [facility] Medicine Specialties [address], [address]nd [place] [address] Silverio Tam PA [address] [place] [address] Social History Tobacco Use Types [...] often do you attend chur ch or protestant services? Never 02/22/2024 Do you [...] Recorded Patient Health Questionnaire-2 Score 0 12/15/2024 [facility]at ional [...] in a alf (including now)? No 02/09/2024 [place] Depression Scale Answer Date Recorded [place] Depression Scale Total 6 08/08/2024 The thought [...] drink first t casi in the morning (EYE-PLUG DRILL OPERATOR) to steady your nerves or to [...] Description 04/04/2025 4:00 PM EDT Office Visit [facility] Medicine Specialties [address], [address] [place] [address] Zia Hollis MD [address] [place] [address] 04/17/2025 2:00 PM EDT Office Visit [facility] Medicine Specialties [address], [address] [place] [address] Silverio Tam PA [address] [place] [address] 06/15/2025 12:30 PM EST Office Visit [facility] [address], [address] [place] [address] Kendy Sanchez APRN [address] [place] [address] 06/19/2025 8:00 AM EST Office Visit [facility] [place] [address], [address] [place] [address] Courtney Torres MD [address] [place] [address] 06/19/2025 12:30 PM EST Appointment [facility] [address] [place] [address] 06/21/2025 12:30 PM EST Appointment [facility] [address] [place] [address] documented as of this encounter [...] documented as of this encounter Care Teams Rabies Inspector Relationship Specialty [place] [address] [place] [address] PCP - General 11/16/24 Angela Oleary, RN [facility] Registered Nurse Cardiology 02/17/24 documented as of this encounter
--- OUTSIDE RECORDS SUMMARY | 2025-04-03 09:47 | XMS_ITS | Encounter Summary ---
Author Organization Healthcare Address [address] [place] [address] Care Team Providers Care Landfill Gas Plant Field Technician Name Role Phone Angela Oleary RN Unavailable Unavailable Rey Wyatt MD Primary Care Provider [phone] Encounter Details Date Type Department Care Team [...] 02/22/2024 How often do you attend [facility] or denominational services? Never 02/22/2024 Do you [...] a group home (including now)? No 02/09/2024 [place] Depression Scale Answer Date Recorded [place] Depression Scale Total 6 08/08/2024 The thought [...] drink first t casi in the morning (EYE-BOBBIN DOFFER) to steady your nerves or to get [...] Description 04/04/2025 4:00 PM EDT [facility] Visit [facility] Medicine Specialties [address], [address]nd [place] [address] Zia Hollis MD [address] [place] [address] 04/17/2025 2:00 PM EDT Office Visit [facility] Medicine Specialties [address], [address] [place] [address] Silverio Tam PA [address] [place] [address] 06/15/2025 12:30 PM EST Office Visit [facility] [address], [address] [place] [address] Kendy Sanchez, ONLINE MERCHANT [address] [place] [address] 06/19/2025 8:00 AM EST Office Visit [facility] [place] [address], [address] [place] [address] Courtney Torres MD [address] [place] [address] 06/19/2025 12:30 PM EST Appointment [facility] [address] [place] [address] 06/21/2025 12:30 PM EST Appointment [facility] [address] [place] [address] documented as of this encounter Goals Goal [...] documented as of this encounter Care Teams Landfill Gas Plant Field Technician Relationship Specialty Start Date End Date Rey Wyatt MD [address] [facility] [address] [place] [address] PCP - General 11/16/24 Angela Oleary, RN [facility] Registered Nurse Cardiology 02/17/24 documented as of this encounter
--- OUTSIDE RECORDS SUMMARY | 2025-04-03 09:47 | XMS_ITS | Encounter Summary ---
Author Organization Healthcare Address [address] [place] [address] Care Team Providers Care Instructional Technologist Name Role Phone Angela Oleary RN Unavailable Unavailable Rey Wyatt MD Primary Care Provider [phone] Encounter Details Date Type Department Care Team [...] week 02/22/2024 How often do you attend [facility] or evangelical services? Never 02/22/2024 Do you [...] in a snf (including now)? No 02/09/2024 [place] Depression Scale Answer Date Recorded [place] Depression Scale Total 6 08/08/2024 The thought [...] first t casi in the morning (EYE-COMMERCIAL COUNSEL) to steady your nerves or to get [...] Description 04/04/2025 4:00 PM EDT [facility] Visit [facility] Medicine Specialties [address], [address] [place] [address] Zia Hollis MD [address] [place] [address] 04/17/2025 2:00 PM EDT Office Visit [facility] Medicine Specialties [address], [address] [place] [address] Silverio Tam PA [address] [place] [address] 06/15/2025 12:30 PM EST Office Visit [facility] [address], [address] [place] [address] Kendy Sanchez, DOMESTIC MAID [address] [place] [address] 06/19/2025 8:00 AM EST Office Visit [facility] [place] [address], [address] [place] [address] Courtney Torres MD [address] [place] [address] 06/19/2025 12:30 PM EST Appointment [facility] [address] [place] [address] 06/21/2025 12:30 PM EST Appointment [facility] [address] [place] [address] documented as of this encounter Goals Goal [...] documented as of this encounter Care Teams Instructional Technologist Relationship Specialty Start Date End Date Rey Wyatt MD [address] [facility] [address] [place] [address] PCP - General 11/16/24 Angela Oleary, RN [facility] Registered Nurse Cardiology 02/17/24 documented as of this encounter
--- OUTSIDE RECORDS SUMMARY | 2025-04-03 09:47 | XMS_ITS | Referral Summary ---
Author Organization [employer] ([place], [place], [place], [place]) Address [address] [place] [address] Care Team Providers Care Dog Races Manager Name Role Phone Molly Louis MD Primary Care Provider [phone] Allergies Active Allergy Reactions Criticality Noted Date [...] Date Guerrero rded Speak language other than Kiswahili at home Not on file 08/13/2023 Want [...] [facility] Procedure Lab [address] [place] [address] Medical Devices Implanted Type Area Behavioral Scientist Device Identifier Shelf Expiration Date Model / Serial / Lot K-Wire [id number] - [id number] Implanted:Qty: 1 on 08/04/2022 by Rex Rene MD at [facility] IMPLANTS Right: Hand [employer] [id number] / / Wire K-Wire 1.6mm - [id number] Implanted:Qty: 1 on 08/04/2022 by Rex Rene MD at [facility] IMPLANTS Right: Hand BUCK MED GRP:BUCK MED TECH / / Insurance [place] [address] Advance Directives For more information, please contact: [phone] * Full Code (Latest Code Status on File) Date Activated Date Inactivated Comments 08/04/2022 6:03 AM 08/04/2022 11:35 AM Care Teams Dog Races Manager Relationship Specialty Start Date End Date Molly Louis MD [address] [place] [address] [address] [place] [address] PCP - General 08/22/24
--- OUTSIDE RECORDS SUMMARY | 2025-04-03 09:47 | XMS_ITS | Encounter Summary ---
Author Organization [employer] ([place], [place], [place], [place]) Address [address] [place] [address] Care Team Providers Care Floor Worker Name Role Phone Molly Louis MD Primary Care Provider [phone] Encounter Details Date Type Department Care Team (Late st Contact Info) Description 04/14/2024 Outside Orders [facility] Admitting [address] [place] [address] Silverio Tam, PA [address] [place] [address] Blood in stool (Primary Dx) Social History [...] Date Guerrero rded Speak language other than Mauritian at home Not on file 08/13/2023 Want [...] Info) Description 04/17/2025 12:30 PM EDT Appointment [facility] Procedure Lab [address] [place] [phone] documented as of this encounter Results * (ABNORMAL) Calprotectin, Fecal by Immunoassay(SENDOUT) (04/14/2024 11:06 AM EDT) Calprotectin, Fecal 87(H) <=49 ug/g 04/19/2024 11:26 PM EDT [facility] Comment: REFERENCE INTERVAL: Calprotectin, Fecal by Immunoassay Less than 50 ug/g.........Normal 50-120 ug/g...............Borderline elevated, test should be re-evaluated in 4-6 weeks. 121 ug/g or greater.......Elevated Performed By: [facility] [address] [place] [address] Maintenance Mechanic Engine: Wilber Pardo MD, PhD CLIA Number: [id number] Stool 04/14/2024 11:0 6 AM EDT 04/14/2024 11:47 AM EDT [facility] MICROBIOLOGY - GENERAL ORDERAB LES Final Result [facility] [address] [place] [address], [facility] [phone] documented in this encounter Visit Diagnoses Diagnosis Blood in stool- Primary documented in this encounter Care Teams Floor Worker Relationship Specialty Start Date End Date Molly Louis MD [address] [facility] [place] [address] PCP - General 08/22/24 documented as of this encounter
[2025-04-03 11:11] LABS: FSH 7.7 mIU/mL (.)
== END 2025-03-31 23:59 ==
LOC: LAB.DROPOF 04-03 09:43
PROVIDERS: PCP Nurse Practitioner Family; Visit Provider Nurse Practitioner Family
DX: D64.9 Anemia, unspecified (principal); E06.3 Autoimmune thyroiditis; G90.9 Disorder of the autonomic nervous system, unspecified
CPT/HCPCS: 80053; 82607; 82728; 83001; 84402; 84403; 84443; 85025; 86376

== ENCOUNTER 2025-04-09 12:43 | Emergency (ER) | payer MEDICAID, SELFPAY ==
--- OUTSIDE RECORDS SUMMARY | 2025-02-16 13:20 | XMS_ITS | Encounter Summary ---
Author Organization [facility] Address [address] [place] [address] Care Team Providers Care Division Operations Specialist Name Role Phone Angela Oleary RN Unavailable Unavailable Rey Wyatt MD Primary Care Provider [phone] Reason for Referral * Cardiac Stress Testing (Routine) - Authorized Specialty Diagnoses / Procedures Referred By Contac t Referred To Contact Cardiology Diagnoses Syncope and collapse Procedures Outside Tilt Table Test Courtney Torres MD [address] [place] [address] Phone: tel: fax: Referral ID Status Reason Start Date Expiration Date V isits Requested Visits Authorized [id number] Authorized 02/16/2025 08/18/2026 1 1 Encounter Details Date Type Department Care Team (Late st Contact Info) Description 02/16/2025 1:20 PM EDT Office Visit [facility] [place] [address], [address] [place] [address] Courtney Torres MD [address] [place] [address] Syncope and collapse (Primary Dx); [...] week 02/22/2024 How often do you attend [facility] services? Never 02/22/2024 Do you [...] [facility] [...] in a prison (including now)? No 02/09/2024 Barnhart Depression Scale Answer Date Recorded Barnhart Depression Scale Total 6 08/08/2024 The thought [...] drink first t casi in the morning (EYE-WELDING MACHINE OPERATOR PLASMA ARC) to steady your nerves or to get rid of a hangover? 0 07/16/2024 CAGE Questionnaire Score 0 024 Utilities Answer Date Recorded In the past 12 months has th e [employer], gas, oil, or water company threatened to [...] from the original note were not included. [facility] [address] [facility] [address] [place] [address] Clinic Jackie JayNola: Our Lab: [address] [place] [address] (call to schedule a lab appointment) It was a pleasure to see you at the [facility] [place] Card[facility] clinic on [facility]. We strive to provide timely care for [...] by phone or send a message through [employer]Team. We are committed to accommodating all inquires [...] office and send us a message through [employer]Team so we can assist you. Thank you for coming to clinic today! Below is some information about what we discussed and a list of the orders that were placed during the visit. -Orders Placed This Visit Orders Placed This Encounter Procedures Catecholamines, fractionated, plasma Standing Status: Future Expected Date: 02/16/2025 Expiration Date: 08/19/2026 [facility] [1] Cortisol Standing Status: Future Expected Date: 02/16/2025 Expiration Date: 08/19/2026 [facility] [1] Ferritin, Serum Standing Status: Future Expected Date: 02/16/2025 Expiration Date: 08/19/2026 [facility] [1] Tryptase Standing Status: Future Expected Date: 02/16/2025 Expiration Date: 08/19/2026 [facility] [1] Outside Tilt Table Test Eval for VVS vs POTS; syncope Standing Status: Future Expected Date: 02/16/2025 Expiration Date: 02/16/2027 [facility] [1] Cardiopulmonary Exercise Test Standing Status: [...] (POTS) The following is adapted from the [facility] and Dr. Reji Esquivel ([facility]) VIDEO: What is POTS? [email or web address] POTS Manual ([facility]): [email or web address] General Advice: --Hydration: Hydrate with just water [...] to see a result. Adapted from the [facility] and Dr. Reji Esquivel ([facility]) * Progress Notes - Courtney Torres [...] standing [x] meals [x] during menses [x] early childhood assistant hours [x] in hot weather [x] during [...] subtypes ofPOTS Has seen Sleep Medicine at [place], [place] Follows Psychiatry : [facility] [place], [place] -Initial Conservative Treatment Strategy: -Water and [...] lower extremity muscle tensing, leg crossing, and weightshifting engage the skeletal muscle pump to improve venous return and can provide immediate temporary symptom relief. Improve sleep quality by having a consistent bedtime and wake time, not spending time in bed during the day, winding down prior to going to bed, and ensuring that the bedroom envir onment promotes sleep. Compressive garments. -Develop physical habits [...] 30 capsule 1 Blood Glucose Monitoring Suppl (g4interactive Verio Reflect) w/Device kit busPIRone (Buspar) 5 [...] for mild pain. 30 tablet 1 Lancets (NovanTouch Delica Plus [id number]) misc levothyroxine (Synthroid, Levoxyl) 25 MCG tablet Take 1 tablet by mouth daily. ondansetron (Zofran) 4 MG tablet Take 1 tablet (4 mg) by mouth every 8 (eight) hours if needed for nausea or vomiting. 3 tablet 5 ondansetron ODT (Zofran-ODT) 4 MG disintegrating tablet Dissolve 2 tablets on the tongue every 8 hours as needed for nausea or vomiting. 20 tablet 5 OneTouch Verio test strip 1 each by [...] every 6 hours as needed. sodium chloride ([place] Nasal [place]) 0.65 % nasal spray Administer 1 spray [...] Care Team (Late st Contact Info) Description 04/18/2025 8:40 AM EDT Appointment [facility] [address] [place] [id number] Cony Mcelroy MD [address] [place] [address] 06/15/2025 12:30 PM EST Office Visit [place] [facility] [address] [place] [address] Kendy Sanchez APRN [address] [place] [address] 06/19/2025 8:00 AM EST Office Visit [facility] [place] [address] [facility], [address] [place] [address] Courtney Torres MD [address] [place] [address] 06/19/2025 12:30 PM EST Appointment [facility] [address] [place] [address] 06/21/2025 12:30 PM EST Appointment [facility] [address] [place] [address] Scheduled Orders Name Type Priority Associated Diagnoses [...] from the original result were not included. [facility] Cardiopulmonary Exercise Testing Laboratory The risks [...] sinus rhythm at 71 bpm. Heart Rate [place] unable to be determined Pulmonary Performance/Ventilatory Response: [...] at peak exercise was 87 L/min (Breathing [place] Ratio: 70%). VE/VCO2 slope unable to be obtained. Conclusion: Due to early termination of the test (after 1:30-2:00 minutes) unable to accurately interpret the findings. Can consider repeating in the future if the patient is able to exercise. Tay Barraza DO Talend Etl Developersafety deposit boxes custodian Cardiovascular Medicine Director of Sports Cardiology [facility] [place] us Courtney Torres MD PFT ORDERABLES Final Result * (ABNORMAL) Cardiopulmonary Exercise Test (03/01/2025 11:19 AM EDT) [id number] 4.85(A) 3.04 - 4.60 L VYAIRE PFT FEV1 PRE 3.42 2.62 - 3.88 L VYAIRE PFT FEV1/FVC PRE 70.53(A) 74.27 - 94.96 % VYAIRE PFT YUI64-39% PRE 2.34(A) 2.43 - 5.18 L/s VYAIRE PFT PEF PRE 8.68(A) 5.24 - 8.66 L/s VYAIRE PFT [id number] 126.25(A) 114.18 - 114.18 L/min VYAIRE PFT Anatomical Region Laterality Modality PFT 03/01/2025 10:2 6 AM EDT Narrative 03/01/2025 11:43 AM EDT Images from the original result were not included. [facility] Cardiopulmonary Exercise Testing Laboratory The risks [...] sinus rhythm at 71 bpm. Heart Rate [place] unable to be determined Pulmonary Performance/Ventilatory Response: [...] at peak exercise was 87 L/min (Breathing Turner Ratio: 70%). VE/VCO2 slope unable to be obtained. Conclusion: Due to early termination of the test (after 1:30-2:00 minutes) unable to accurately interpret the findings. Can consider repeating in the future if the patient is able to exercise. Tay Barraza DO Talend Etl Developersafety deposit boxes custodian Cardiovascular Medicine Director of Sports Cardiology [facility] [place] Courtney Torres MD PFT ORDERABLES Final Result * Tryptase (02/16/2025 2:17 PM EDT) TRYPTASE 4.3 <=10.9 ug/L 02/19/2025 2:04 PM EDT [facility] [employer] ([employer]) Serum Venous blood specimen / Unknown 02/16/2025 2:17 PM EDT 02/16/2025 2:17 PM EDT Narrative [facility]) - 02/19/2025 2:04 PM EDT Performed By: [facility] [address] [place] [address] Time Signal Wirer: Wilber Pardo MD, PhD CLIA Number: [id number] Courtney Torres MD LAB BLOOD ORDERABLES Final Re sult [facility] ([place]) [address] [place] [address] * (ABNORMAL) Ferritin, Serum (02/16/2025 2:17 PM EDT) Pathologist [facility] Ferritin, Serum 6(L) 13 - 150 ng/mL 02/16/2025 6:17 PM EDT [facility] Blood Venous blood specimen / Unknown Venipuncture / Unknown 02/16/2025 2:17 PM EDT 02/16/2025 2:17 PM EDT Courtney Torres MD LAB BLOOD ORDERABLES Final Re sult Performing Organization Address [facility] Co de Phone Number [facility] [address] [place] [address] * Cortisol (02/16/2025 2:17 PM EDT) [facility] Cortisol 2.80 Before 10am: 3.7 - 19.4. After 5pm: 2.9 - 17.3 ug/dL 02/16/2025 6:36 PM EDT [facility] Comment:Testing performed on Verma Mixing Tumbler Operator, standardized against ALF Reference Standard concentration values assigned by LC-MS/MS and verified by BCR 192 and BCR 193 certified reference materials. Blood Venous blood specimen / Unknown Venipuncture / Unknown 02/16/2025 2:17 PM EDT 02/16/2025 2:17 PM EDT Courtney Torres MD LAB REF LAB BLOOD AND FLUID O RD Final Result Performing Organization Address City/[facility]/ZIP Co de Phone Number [facility] [address] [place] [address] * Catecholamines, fractionated, plasma (02/16/2025 2:17 PM EDT) Pathologist [facility] CATECHOLAMINES, INTERP See Note 02/27/2025 12:36 AM EDT [facility] ([facility]) DOPAMINE <130 <=240 pmol/L 02/27/2025 12:36 AM EDT [facility] ([facility]) EPINEPHRINE 167 <=330 pmol/L 02/27/2025 12:36 AM EDT [facility] ([facility]) NOREPINEPHRINE 1597 1050 - 4800 pmol/L 02/27/2025 12:36 AM EDT [facility] ([facility]) Blood Venous blood specimen / Unknown Venipuncture / Unknown 02/16/2025 2:17 PM EDT 02/16/2025 2:17 PM EDT Narrative [facility] ([facility]) - 02/27/2025 12:36 AM EDT [...] reference intervals for this test in the [employer] Laboratory Test Directory ([employer]). This test was developed and its performance characteristics determined by [facility]. It has not been cleared or approved by the US Food and Drug Administration. This test was performed in a CLIA certified laboratory and is intended for clinical purposes. Performed By: [facility] [address] [place] [id number] Time Signal Wirer: Wilber Pardo MD, PhD CLIA Number: [id number] us Courtney Torres MD LAB BLOOD ORDERABLES Final Re sult [facility]) [address] [place] [address] documented in this encounter Visit Diagnoses Diagnosis [...] documented as of this encounter Care Teams Division Operations Specialist Relationship Specialty [place] [address] [place] [address] PCP - General 11/16/24 Angela Oleary, RN [facility] Registered Nurse Cardiology 02/17/24 documented as of this encounter
--- OUTSIDE RECORDS SUMMARY | 2025-03-01 10:13 | XMS_ITS | Encounter Summary ---
Author Organization Healthcare Address [address] [place] [address] Care Team Providers Care Head Of Research & Insights Name Role Phone Angela Oleary RN Unavailable Unavailable Rey Wyatt MD Primary Care Provider [phone] Encounter Details Date Type Department Care Team (Latest Contact Info) Description 03/01/2025 10:13 AM EDT - 03/01/2025 11:59 PM EDT Hospital Encounter [facility] Pulmonary Function Testing [address] [place] [address] Dysautonomia-like disorder Discharge Disposition: Home or Self [...] often do you attend chur ch or mandaen services? Never 02/22/2024 Do you [...] Recorded Patient Health Questionnaire-2 Score 0 12/15/2024 [facility] - Occupational Stress Questionnaire Answer [...] in a custodial (including now)? No 02/09/2024 [place] Depression Scale Answer Date Recorded [place] Depression Scale Total 6 08/08/2024 The thought [...] drink first t casi in the morning (EYE-WELLNESS EDUCATOR) to steady your nerves or to [...] capsule 1 07/18/2024 Blood Glucose Monitoring Suppl (Motivating WellnessTouch Verio Reflect) w/Device kit 04/14/2024 busPIRone (Buspar) [...] mild pain. 30 tablet 1 07/18/2024 Lancets (WhatsNexxuch Delica Plus [id number]) misc 04/14/2024 levothyroxine (Synthroid, Levoxyl) 25 MCG [...] nausea or vomiting. 20 tablet 5 12/30/2024 Motivating WellnessTouch Verio test strip 1 each by Other [...] every 6 hours as needed. sodium chloride ([place] Nasal [place]) 0.65 % nasal spray Administer 1 spray into each nostril if needed for congestion. 30 mL 12 04/12/2024 Ventolin HFA 108 (90 Base) MCG/ACT inhaler 10/05/2024 Vit-Fe Fumarate-FA ( Vitamins) 28-0.8 MG tablet Take 1 tablet by mouth 1 (one) time each day. 30 tablet 11 03/17/2024 cefdinir (Omnicef) 300 MG capsule take one capsule by mouth every twelve hours for 10 days 12/08/2024 documented as of this encounter Plan of Treatment Upcoming Encounters Date Type Department Care Team (Late st Contact Info) Description 04/18/2025 8:40 AM EDT Appointment [facility] End[facility] [address] [place] [address] Cony Mcelroy MD [address] [place] [address] 06/15/2025 12:30 PM EST Office Visit [place] [facility] [address] [place] [address] Kendy Sanchez APRN [address] [place] [address] 06/19/2025 8:00 AM EST Office Visit [facility] [place] [address] [place] [address] Courtney Torres MD [address] [place] [address] 06/19/2025 12:30 PM EST Appointment [facility] [address] [place] [address] 06/21/2025 12:30 PM EST Appointment [facility] [address] [place] [address] documented as of this encounter [...] from the original result were not included. [facility] Cardiopulmonary Exercise Testing Laboratory The risks and [...] sinus rhythm at 71 bpm. Heart Rate [place] unable to be determined Pulmonary Performance/Ventilatory Response: [...] at peak exercise was 87 L/min (Breathing [place] Ratio: 70%). VE/VCO2 slope unable to be obtained. Conclusion: Due to early termination of the test (after 1:30-2:00 minutes) unable to accurately interpret the findings. Can consider repeating in the future if the patient is able to exercise. Tay Barraza DO Aircraft Instrument Engineermule driver Cardiovascular Medicine Director of Sports Cardiology [facility] [place] Courtney Torres MD PFT ORDERABLES Final Result * (ABNORMAL) Cardiopulmonary Exercise Test (03/01/2025 11:19 AM EDT) [id number] 4.85(A) 3.04 - 4.60 L VYAIRE PFT FEV1 PRE 3.42 2.62 - 3.88 L VYAIRE PFT FEV1/FVC PRE 70.53(A) 74.27 - 94.96 % VYAIRE PFT MBY96-03% PRE 2.34(A) 2.43 - 5.18 L/s VYAIRE PFT PEF PRE 8.68(A) 5.24 - 8.66 L/s VYAIRE PFT [id number] 126.25(A) 114.18 - 114.18 L/min VYAIRE PFT Anatomical Region Laterality Modality PFT 03/01/2025 10:2 6 AM EDT Narrative 03/01/2025 11:43 AM EDT Images from the original result were not included. [facility] Cardiopulmonary Exercise Testing Laboratory The risks and [...] sinus rhythm at 71 bpm. Heart Rate [place] unable to be determined Pulmonary Performance/Ventilatory Response: [...] at peak exercise was 87 L/min (Breathing [place] Ratio: 70%). VE/VCO2 slope unable to be obtained. Conclusion: Due to early termination of the test (after 1:30-2:00 minutes) unable to accurately interpret the findings. Can consider repeating in the future if the patient is able to exercise. Tay Barraza DO Aircraft Instrument Engineermule driver Cardiovascular Medicine Director of Sports Cardiology [facility] [place] Courtney Torres MD PFT ORDERABLES Final Result [...] documented as of this encounter Care Teams Head Of Research & Insights Relationship Specialty Start Date End Date Rey Wyatt MD 1700 [facility] [address] [place] [address] PCP - General 11/16/24 Angela Oleary, RN [facility] Registered Nurse Cardiology 02/17/24 documented as of this encounter
--- OUTSIDE RECORDS SUMMARY | 2025-03-15 15:30 | XMS_ITS | Encounter Summary ---
Author Organization [facility] Address [address] [place] [address] Care Team Providers Care Knit Goods Mender Name Role Phone Angela Oleary RN Unavailable Unavailable Rey Wyatt MD Primary Care Provider Reason for Referral * Other Medical (Routine) - Pending Review Specialty Diagnoses / Procedures Referred By Mili joe Referred To Contact Neurology Diagnoses Syncope, unspecified syncope type Procedures Home-Based Ambulatory EEG Kendy Sanchez APRN [address] [place] [address] Phone: tel: fax: Referral ID Status Reason Start Date Expiration Date Visits Requested Visits Authorized [id number] Pending Review Specialty Services Required 03/15/2025 09/14/2026 1 1 Reason for Visit * Consultation (Routine) - Closed Specialty Diagnoses / Procedures Referred By Mili joe Referred To Contact Neurology Diagnoses Seizure-like activity (CMS/HCC) Román Joiner MD [address] [place] [address] Phone: tel: fax: [place] [facility] [address], [address] [place] [address] Phone: tel: fax: Referral ID Status Reason Start Date Expiration Date V isits Requested Visits Authorized [id number] Closed Specialty Services Required 09/12/2024 03/14/2026 1 1 Encounter Details Date Type Department Care Team (Late st Contact Info) Description 03/15/2025 3:30 PM EDT Consult [place] [facility] [address], [address] [place] [address] Kendy Sanchez, EDITOR MAGAZINE [address] [place] [address] Syncope, unspecified syncope type (Primary [...] How often do you attend chur or jain services? Never 02/22/2024 Do you [...] Recorded Patient Health Questionnaire-2 Score 0 12/15/2024 [facility] - Occupational Stress Questionnaire Answer Date [...] health care facility (including now)? No 02/09/2024 [place] Depression Scale Answer Date Recorded [place] Depression Scale Total 6 08/08/2024 The [...] drink first t casi in the morning (EYE-OFFICE CLEANER) to steady your nerves or to get rid of a hangover? 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 COORDINATION: no ataxia with [id number] testing GAIT: defer, came on wheelchair, feels [...] the date of the last seizure/spell per [place] state law Patient has been informed to [...] EDT Appointment [facility] [address] [place] [address] Cony Mcelroy MD [address] [place] [address] 06/15/2025 12:30 PM EST Office Visit [place] [facility] [address], [address] [place] [address] Kendy Sanchez, EDITOR MAGAZINE [address] [place] [address] 06/19/2025 8:00 AM EST Office Visit [facility] [place] [address], [address] [place] [address] Courtney Torres MD [address] [place] [address] 06/19/2025 12:30 PM EST Appointment [facility] Neurophysiology [address] [place] [address] 06/21/2025 12:30 PM EST Appointment [facility] [address] [place] [address] Scheduled Orders Name Type Priority Associated Diagnoses [...] documented as of this encounter Care Teams Knit Goods Mender Relationship Specialty Start Date End Date Rye Wyatt MD [address] [facility] [address] [place] [address] PCP - General 11/16/24 Angela Oleary, RN [facility] Registered Nurse Cardiology 02/17/24 documented as of this encounter
--- OUTSIDE RECORDS SUMMARY | 2025-04-04 16:00 | XMS_ITS | Encounter Summary ---
Author Organization [facility] Address [address] [place] [id number] Care Team Providers Care Fx Artist Name Role Phone Angela Oleary RN Unavailable Unavailable Rey Wyatt MD Primary Care Provider [phone] Reason for Referral * Consultation (Routine) - Authorized Specialty Diagnoses / Procedures Referred By Mili joe Referred To Contact Diagnoses Epigastric pain Diarrhea, unspecified type Albania Aguero MD [address] [address] Phone: tel: fax: Referral ID Status Reason Start Date Expiration Date V isits Requested Visits Authorized [id number] Authorized 04/07/2025 10/07/2026 1 1 * Imaging (Routine) - Authorized Specialty Diagnoses / Procedures Referred By Mili joe Referred To Contact Gastroenterology Diagnoses Epigastric pain Diarrhea, unspecified type Gastroesophageal reflux disease, unspecified whether esophagitis present Procedures Colonoscopy Albania Aguero MD [address] [address] Phone: tel: fax: Referral ID Status Reason Start Date Expiration Date Visits Requested Visits Authorized [id number] Authorized Specialty Services Required 04/07/2025 10/07/2026 1 1 * Imaging (Routine) - Authorized Specialty Diagnoses / Procedures Referred By Mili joe Referred To Contact Gastroenterology Diagnoses Epigastric pain Diarrhea, unspecified type Gastroesophageal reflux disease, unspecified whether esophagitis present Procedures EGD Albania Aguero MD [address] [facility] [address] [place] [address] Phone: tel: fax: Referral ID Status Reason Start Date Expiration Date Visits Requested Visits Authorized [id number] Authorized Specialty Services Required 04/07/2025 10/07/2026 1 1 Reason for Visit * Reason Comments Weight loss Encounter Details Date Type Department Care Team (Late st Contact Info) Description 04/04/2025 4:00 PM EDT Office Visit [facility] [address] [place] [address] Donaldo Terry MD [address] [place] [address] Epigastric pain (Primary Dx); Diarrhea, unspecified type; [...] Score 0 12/15/2024 [facility] - Occupational Stress Questionnaire Answer Date Recorded [...] in a snf (including now)? No 02/09/2024 [place] Depression Scale Answer Date Recorded [place] Depression Scale Total 6 08/08/2024 The thought [...] drink first t casi in the morning (EYE[employer]PUTTY AND PATCH WORKER) to steady your nerves or to [...] 4:31 PM EDT documented in this encounter Plan of Treatment Upcoming Encounters Date Type Department Care Team (Late st Contact Info) Description 04/18/2025 8:40 AM EDT Appointment [facility] [address] [place] [address] Cony Mcelroy MD [address] [place] [address] 06/15/2025 12:30 PM EST Office Visit [place] [facility] [address] [place] [address] Kendy Sanchez APRN [address] [place] [address] 06/19/2025 8:00 AM EST Office Visit [facility] [place] [address] [place] [address] Courtney Torres MD [address] [place] [address] 06/19/2025 12:30 PM EST Appointment [facility] [address] [place] [address] 06/21/2025 12:30 PM EST Appointment [facility] [address] [place] [address] Scheduled Orders Name Type Priority Associated Diagnoses Orde r Schedule EGD Endoscopy Routine Epigastric pain Diarrhea, unspecified type Gastroesophageal reflux disease, unspecified whether esophagitis present Expected: 04/07/2025, Expires: 10/09/2026 Colonoscopy Endoscopy Routine Epigastric pain Diarrhea, unspecified type Gastroesophageal reflux disease, unspecified whether esophagitis present Expected: 04/07/2025, Expires: 04/07/2026 Scheduled Referrals Name Type Priority Associated Diagnoses Orde r Schedule Follow Up GI Outpatient Referral Routine Epigastric pain Diarrhea, unspecified type Expected: 07/07/2025, Expires: 05/07/2026 documented as of this encounter Goals Goal Patient Goal Type Associated Problems Recent Progress Patient-Stated? Author Delayed Delivery Care Plan CPM S22 PP LABOR (OBSTETRICS) No Open Scheduling, Background documented as of this encounter Visit Diagnoses Diagnosis Epigastric pain- [...] documented as of this encounter Care Teams Fx Artist Relationship Specialty [place] [address] [place] [address] PCP - General 11/16/24 Angela Oleary, RN [facility] Registered Nurse Cardiology 02/17/24 documented as of this encounter
[2025-04-09 12:50] VITALS: BP 137/91; PULSE 77; RESP 17; TEMP 36.7; O2SAT 100; BMI 25.7
[2025-04-09 12:58] VITALS: PULSE 77
[2025-04-09 13:00] VITALS: PULSE 80; RESP 14; O2SAT 100
--- OUTSIDE RECORDS SUMMARY | 2025-04-09 13:00 | XMS_ITS | Clinical Summary ---
Author Organization [facility] Address [address] [place] [address] Care Team Providers Care Aviation Safety Equipment Technician Name Role Phone Provider, No Known [...] Description 01/10/2025 8:30 AM EDT Office Visit [facility] [address] [facility] [address] [place] [address] Saskia Garcia MD Hyperthyroidism (Primary [...] (2 - Td or Tdap) 02/21/2020 010 ANNUAL PHYSICAL 01/10/2025 COVID-19 Vaccine (2 - 2024- season) 2025 INFLUENZA VACCINE 04/26/2025 04/29/2023 HEPATITIS C SCREENING Completed 02/07/2024 Procedures Procedure Name Priority Date/Time Associated Diagnosis Comments SCANNED - LABS 01/19/2025 from Last 3 Months Results * LABS SCANNED (01/19/2025) us Saskia Garcia MD LAB BLOOD ORDERABLES Final Resu lt from Last 3 Months Insurance [place]ICAID [place] Care Teams Aviation Safety Equipment Technician Relationship Specialty Start Date End Date Provider, No Known [facility] [place] [address] PCP - General 02/08/24
--- OUTSIDE RECORDS SUMMARY | 2025-04-09 13:00 | XMS_ITS | Encounter Summary ---
Author Organization Healthcare Address [address] [place] [address] Care Team Providers Care Electrical Maintenance Supervisor Name Role Phone Angela Oleary RN Unavailable Unavailable Rey Wyatt MD Primary Care Provider [phone] Encounter Details Date Type Department Care Team [...] often do you attend chur ch or jew services? Never 02/22/2024 Do you [...] a senior living (including now)? No 02/09/2024 [place] Depression Scale Answer Date Recorded [place] Depression Scale Total 6 08/08/2024 The thought [...] drink first t casi in the morning (EYE-DELIVERY DRIVER) to steady your nerves or to [...] EDT Appointment [facility] [address] [place] [address] Cony Mcelroy MD [address] [place] [address] 06/15/2025 12:30 PM EST Office Visit [place] [facility] [address], [address] [place] [address] Kendy Sanchez, OPENING MACHINE CLEANER [address] [place] [address] 06/19/2025 8:00 AM EST Office Visit [facility] [place] [address], [address] [place] [address] Courtney Torres MD [address] [place] [address] 06/19/2025 12:30 PM EST Appointment [facility] [address] [place] [address] 06/21/2025 12:30 PM EST Appointment [facility] [address] [place] [address] documented as of this encounter [...] documented as of this encounter Care Teams Electrical Maintenance Supervisor Relationship Specialty Start Date End Date Rey Wyatt MD [address] [place] [phone] PCP - General 11/16/24 Angela Oleary, RN [facility] Registered Nurse Cardiology 02/17/24 documented as of this encounter
--- OUTSIDE RECORDS SUMMARY | 2025-04-09 13:00 | XMS_ITS | Encounter Summary ---
Author Organization Healthcare Address [address] [id number] Care Team Providers Care Drying Frame Operator Name Role Phone Angela Oleary RN Unavailable Unavailable Rey Wyatt MD Primary Care Provider [phone] Encounter Details Date Type Department Care Team (Late st Contact Info) Description 01/18/2025 Results Follow-Up [facility] Endocrinology [address] [place] [address] MunugotiHugohitha [address] [place] [id number] Social History Tobacco Use Types Packs/Day Years [...] [facility] of Occupat ional [facility] - Occupational Stress Questionnaire Answer Date Recorded [...] in a chcf (including now)? No 02/09/2024 [place] Depression Scale Answer Date Recorded [place] Depression Scale Total 6 08/08/2024 The thought [...] drink first t casi in the morning (EYE-TOOL RENTAL TECHNICIAN) to steady your nerves or to [...] EDT Appointment [facility] [address] [place] [address] Cony Mcelroy MD [address] [place] [address] 06/15/2025 12:30 PM EST Office Visit [place] [facility] [address] [place] [address] Kendy Sanchez, COAT CHECKER [address] [place] [address] 06/19/2025 8:00 AM EST Office Visit [facility] [place] [address] [place] [address] Courtney Torres MD [address] [place] [address] 06/19/2025 12:30 PM EST Appointment [facility] [address] [place] [address] 06/21/2025 12:30 PM EST Appointment [facility] [address] [place] [address] Scheduled Orders Name Type Priority Associated Diagnoses [...] documented as of this encounter Care Teams Drying Frame Operator Relationship Specialty Start Date End Date Rey Wyatt MD [address] [facility] [address] [place] [address] PCP - General 11/16/24 Angela Oleary, RN [facility] Registered Nurse Cardiology 02/17/24 documented as of this encounter
--- OUTSIDE RECORDS SUMMARY | 2025-04-09 13:00 | XMS_ITS | Encounter Summary ---
Author Organization Healthcare Address [address] [place] [address] Care Team Providers Care Donor Specialist Name Role Phone Angela Oleary RN Unavailable Unavailable Rey Wyatt MD Primary Care Provider [phone] Encounter Details Date Type Department Care Team [...] 02/22/2024 How often do you attend [facility] or mormon services? Never 02/22/2024 Do [...] in a longterm (including now)? No 02/09/2024 [place] Depression Scale Answer Date Recorded [place] Depression Scale Total 6 08/08/2024 The [...] drink first t casi in the morning (EYE-ARCHITECTURAL MANAGER) to steady your nerves or to [...] EDT Appointment [facility] [address] [place] [address] Cony Mcelroy MD [address] [place] [address] 06/15/2025 12:30 PM EST Office Visit [place] [facility] [address] [place] [address] Kendy Sanchez, BELT POLISHER [address] [place] [address] 06/19/2025 8:00 AM EST Office Visit [facility] [place] [address], [address] [place] [address] Courtney Torres MD [address] [place] [address] 06/19/2025 12:30 PM EST Appointment [facility] [address] [place] [address] 06/21/2025 12:30 PM EST Appointment [facility] [address] [place] [address] documented as of this encounter [...] documented as of this encounter Care Teams Donor Specialist Relationship Specialty Start Date End Date Rey Wyatt MD [address] [facility] [address] [place] [address] PCP - General 11/16/24 Angela Oleary, RN [facility] Registered Nurse Cardiology 02/17/24 documented as of this encounter
--- OUTSIDE RECORDS SUMMARY | 2025-04-09 13:00 | XMS_ITS | Encounter Summary ---
Author Organization Healthcare Address [address] [place] [address] Care Team Providers Care Medical Charge Entry Specialist Name Role Phone Angela Oleary RN Unavailable Unavailable Rey Wyatt MD Primary Care Provider [phone] Encounter Details Date Type Department Care Team ([facility] st Contact Info) Description 02/16/2025 Telephone [facility] [place] [address] [facility] [place] [address] None, None [address] [id number] Social History Tobacco Use Types Packs/Day Years [...] Recorded Patient Health Questionnaire-2 Score 0 12/15/2024 [facility] - Occupational Stress Questionnaire [...] a skilled nursing (including now)? No 02/09/2024 [place] Depression Scale Answer Date Recorded [place] Depression Scale Total 6 08/08/2024 The thought [...] drink first t casi in the morning (EYE-CONFLICT RESOLUTION PROFESSIONAL) to steady your nerves or to [...] was told to schedule it as a TH and would like for it to be after her 05/17 pulmonary function test. I was not able to find any apts in Apr. Best contact number: [phone] (home) Optimal time of day to reach [...] EDT Appointment [facility] [address] [place] [address] Cony Mcelroy MD [address] [place] [address] 06/15/2025 12:30 PM EST Office Visit [place] [facility] [address] [place] [address] Kendy Sanchez APRN [address] [place] [address] 06/19/2025 8:00 AM EST Office Visit [facility] [place] [address] [facility], [address] [place] [address] Courtney Torres MD [address] [facility] [address] [place] [address] 06/19/2025 12:30 PM EST Appointment [facility] [address] [place] [address] 06/21/2025 12:30 PM EST Appointment [facility] [address] [place] [address] documented as of this encounter Goals Goal [...] as of this encounter Care Teams Medical Charge Entry Specialist Relationship Specialty Start Date End Date Rey Wyatt MD [address] [facility] [address] [place] [address] PCP - General 11/16/24 Angela Oleary, RN [facility] Registered Nurse Cardiology 02/17/24 documented as of this encounter
--- OUTSIDE RECORDS SUMMARY | 2025-04-09 13:00 | XMS_ITS | Encounter Summary ---
Author Organization Healthcare Address [address] [place] [address] Care Team Providers Care Dairy Bar Manager Name Role Phone Angela Oleary RN Unavailable Unavailable Rey Wyatt MD Primary Care Provider [phone] Encounter Details Date Type Department Care Team [...] often do you attend [facility] or oriental orthodox services? Never 02/22/2024 [...] in a snf (including now)? No 02/09/2024 [place] Depression Scale Answer Date Recorded [place] Depression Scale Total 6 08/08/2024 The thought [...] first t casi in the morning (EYE-SUPERVISOR BRAIDING) to steady your nerves or to get [...] EDT Appointment [facility] [address] [place] [address] Cony Mcelroy MD [address] [place] [address] 06/15/2025 12:30 PM EST Office Visit [place] [facility] [address], [address] [place] [address] Kendy Sanchez, LONG DISTANCE OPERATOR [address] [place] [address] 06/19/2025 8:00 AM EST Office Visit [facility] [place] [address], [address] [place] [address] Courtney Torres MD [address] [place] [address] 06/19/2025 12:30 PM EST Appointment [facility] [address] [place] [address] 06/21/2025 12:30 PM EST Appointment [facility] [address] [place] [address] documented as of this encounter [...] documented as of this encounter Care Teams Dairy Bar Manager Relationship Specialty Start Date End Date Rey Wyatt MD [address] [facility] [address] [place] [address] PCP - General 11/16/24 Angela Oleary, RN [facility] Registered Nurse Cardiology 02/17/24 documented as of this encounter
--- OUTSIDE RECORDS SUMMARY | 2025-04-09 13:00 | XMS_ITS | Encounter Summary ---
Author Organization Healthcare Address [address] [place] [address] Care Team Providers Care Video Machines Mechanic Name Role Phone Angela Oleary RN Unavailable Unavailable Rey Wyatt MD Primary Care Provider [phone] Encounter Details Date Type Department Care Team [...] week 02/22/2024 How often do you attend [facility] or scientology services? Never 02/22/2024 Do [...] in a jail (including now)? No 02/09/2024 [place] Depression Scale Answer Date Recorded [place] Depression Scale Total 6 08/08/2024 The thought [...] Have you had a drink first t acsi in the morning (EYE-TAPE MACHINE TAILER) to steady your nerves or to get [...] EDT Appointment [facility] [address] [place] [address] Cony Mcelroy MD [address] [place] [address] 06/15/2025 12:30 PM EST Office Visit [place] [facility] [address] [place] [address] Kendy Sanchez, PARI MUTUAL TICKET CHECKER [address] [place] [address] 06/19/2025 8:00 AM EST Office Visit [facility] [place] [address], [address] [place] [address] Courtney Torres MD [address] [place] [address] 06/19/2025 12:30 PM EST Appointment [facility] [address] [place] [address] 06/21/2025 12:30 PM EST Appointment [facility] [address] [place] [address] documented as of this encounter [...] documented as of this encounter Care Teams Video Machines Mechanic Relationship Specialty Start Date End Date Rye Wyatt MD [address] [facility] [address] [place] [address] PCP - General 11/16/24 Angela Oleary, RN [facility] Registered Nurse Cardiology 02/17/24 documented as of this encounter
--- OUTSIDE RECORDS SUMMARY | 2025-04-09 13:00 | XMS_ITS | Encounter Summary ---
Author Organization Healthcare Address [address] [place] [address] Care Team Providers Care Graphotype Operator Name Role Phone Molly Louis MD Primary Care Provider [phone] Angela Oleary RN Unavailable Unavailable Rey Wyatt MD Primary Care Provider [phone] Reason for Visit * Reason Onset Date Comments Med Refill 03/23/2024 Encounter Details Date Type Department Care Team ([facility] Contact Info) Description 03/23/2024 Refill Medical Office Building Obstetrics and Gynecology [address] [facility] [address], [address] [place] [address] Shalonda Davies, GRASSLAND CONSERVATIONIST [address] [place] [address] Social History Tobacco Use Types [...] Recorded Patient Health Questionnaire-2 Score 0 02/17/2024 [facility] - [...] in a long-term (including now)? No 02/09/2024 [place] Depression Scale Answer Date Recorded [place] Depression Scale Total 8 02/22/2024 The thought [...] first t casi in the morning (EYE-MOTOR TUNE UP SPECIALIST) to steady your nerves or to [...] EDT Appointment [facility] [address] [place] [address] Cony Mcelroy MD [address] [place] [address] 06/15/2025 12:30 PM EST Office Visit [place] [facility] [address], [address] [place] [address] Kendy Sanchez, GRASSLAND CONSERVATIONIST [address] [place] [address] 06/19/2025 8:00 AM EST Office Visit [facility] [place] [address], [address] [place] [address] Courtney Torres MD [address] [place] [address] 06/19/2025 12:30 PM EST Appointment [facility] [address] [place] [address] 06/21/2025 12:30 PM EST Appointment [facility] [address] [place] [address] documented as of this encounter [...] documented as of this encounter Care Teams Graphotype Operator Relationship Specialty Start Date End Date Molly Louis MD [address] [place], [place] [id number] PCP - General Family Medicine 02/09/24 11/15/24 Rey Wyatt MD [address] [id number] PCP - General 11/16/24 Angela Oleary, RN [facility] Registered Nurse Cardiology 02/17/24 documented as of this encounter
--- OUTSIDE RECORDS SUMMARY | 2025-04-09 13:00 | XMS_ITS | Encounter Summary ---
Author Organization Healthcare Address [address] [place] [address] Care Team Providers Care Garage Door Technician Name Role Phone Angela Oleary RN Unavailable Unavailable Rey Wyatt MD Primary Care Provider [phone] Encounter Details Date Type Department Care Team [...] week 02/22/2024 [facility]? Never 02/22/2024 Do you [...] Recorded Patient Health Questionnaire-2 Score 0 12/15/2024 [facility] [...] in a correction (including now)? No 02/09/2024 [place] Depression Scale Answer Date Recorded [place] Depression Scale Total 6 08/08/2024 The thought [...] drink first t casi in the morning (EYE-APPLICATION DEVELOPMENT PROJECT MANAGER) to steady your nerves or to [...] EDT Appointment [facility] [address] [place] [address] Cony Mcelroy MD [address] [place] [address] 06/15/2025 12:30 PM EST Office Visit [place] [facility] [address] [place] [address] Kendy Sanchez, TRASHMAN [address] [place] [address] 06/19/2025 8:00 AM EST Office Visit [facility] [place] [address], [address] [place] [address] Courtney Torres MD [address] [place] [address] 06/19/2025 12:30 PM EST Appointment [facility] [address] [place] [address] 06/21/2025 12:30 PM EST Appointment [facility] [address] [place] [address] documented as of this encounter [...] documented as of this encounter Care Teams Garage Door Technician Relationship Specialty Start Date End Date Rey Wyatt MD [address] [facility] [address] [place] [address] PCP - General 11/16/24 Angela Oleary, RN [facility] Registered Nurse Cardiology 02/17/24 documented as of this encounter
--- OUTSIDE RECORDS SUMMARY | 2025-04-09 13:01 | XMS_ITS | Encounter Summary ---
Author Organization Healthcare Address [address] [place] [address] Care Team Providers Care Tool Machine Setup Operator Name Role Phone Molly Louis MD Primary Care Provider Angela Oleary RN Unavailable Unavailable Rey Wyatt MD Primary Care Provider [phone] Reason for Visit * Reason Onset Date Comments Med Refill 07/19/2024 Encounter Details Date Type Department Care Team (Late st Contact Info) Description 07/19/2024 Refill [facility] [address] [facility], [address] [place] [address] Paris Marion MD [address] [place] [address] Social History Tobacco Use Types Packs/Day Years [...] Recorded Patient Health Questionnaire-2 Score 0 06/22/2024 [facility] [...] in a penitentiary (including now)? No 02/09/2024 [place] Depression Scale Answer Date Recorded [place] Depression Scale Total 8 02/22/2024 The thought [...] drink first t casi in the morning (EYE-TRENCHER DRIVER) to steady your nerves or to [...] EDT Appointment [facility] [address] [place] [phone] Coyn Mcelroy MD [address] [place] [address] 06/15/2025 12:30 PM EST Office Visit [place] [facility] [address] [place] [address] Kendy Sanchez, TRISTAN [address] [place] [address] 06/19/2025 8:00 AM EST Office Visit [facility] [place] [address], [address] [place] [address] Courtney Torres MD [address] [place] [address] 06/19/2025 12:30 PM EST Appointment [facility] [address] [place] [address] 06/21/2025 12:30 PM EST Appointment [facility] [address] [place] [address] documented as of this encounter Goals Goal [...] documented as of this encounter Care Teams Tool Machine Setup Operator Relationship Specialty Start Date End Date Molly Louis MD [address] [place], [place] [phone] PCP - General Family Medicine 02/09/24 11/15/24 Rey Wyatt MD [address] [place] [address] PCP - General 11/16/24 Angela Oleary RN [facility] Registered Nurse Cardiology 02/17/24 documented as of this encounter
--- OUTSIDE RECORDS SUMMARY | 2025-04-09 13:01 | XMS_ITS | Encounter Summary ---
Author Organization Healthcare Address [address] [place] [address] Care Team Providers Care Montessori Lead Teacher Name Role Phone Angela Oleary RN Unavailable Unavailable Rey Wyatt MD Primary Care Provider [phone] Encounter Details Date Type Department Care Team (Late st Contact Info) Description 12/28/2024 Results Follow-Up [facility] Medicine Specialties [address], [address] [place] [address] Estuardo Jon [address] [place] [address] Social History Tobacco Use Types [...] Questionnaire-2 Score 0 12/15/2024 [facility] - Occupational [...] a care home (including now)? No 02/09/2024 [place] Depression Scale Answer Date Recorded [place] Depression Scale Total 6 08/08/2024 The thought [...] drink first t casi in the morning (EYE-FORGER HELPER) to steady your nerves or to [...] Miscellaneous Notes * Result Encounter Note - Dontrell, Estuardo, MD - 12/28/2024 9:44 AM EDT Patency capsule passed. documented in this encounter Plan of Treatment Upcoming Encounters Date Type Department Care Team (Late st Contact Info) Description 04/18/2025 8:40 AM EDT Appointment [facility] [address] [place] [address] Cony Mcelroy MD [address] [place] [address] 06/15/2025 12:30 PM EST Office Visit [place] [facility] [address] [place] [address] Kendy Sanchez APRN [address] [place] [address] 06/19/2025 8:00 AM EST Office Visit [facility] [place] [address], [address] [place] [address] Courtney Torres MD [address] [place] [address] 06/19/2025 12:30 PM EST Appointment [facility] [address] [place] [address] 06/21/2025 12:30 PM EST Appointment [facility] [address] [place] [address] documented as of this encounter [...] documented as of this encounter Care Teams Montessori Lead Teacher Relationship Specialty [place] [address] [place] [address] PCP - General 11/16/24 Angela Oleary, RN [facility] Registered Nurse Cardiology 02/17/24 documented as of this encounter
--- OUTSIDE RECORDS SUMMARY | 2025-04-09 13:01 | XMS_ITS | Encounter Summary ---
Author Organization [employer] ([place], [place], [place], [place]) Address [address] [place] [address] Care Team Providers Care Printing Roller Handler Name Role Phone Molly Louis MD Primary Care Provider [phone] Encounter Details Date Type Department Care Team (Late st Contact Info) Description 04/14/2024 Outside Orders [facility] Admitting [address] [place] [address] Silverio Tam, PA [address] [place] [address] Blood in stool (Primary Dx) Social History [...] Date Guerrero rded Speak language other than Uruguayan at home Not on file 08/13/2023 Want [...] Info) Description 04/17/2025 12:30 PM EDT Appointment [facility] Procedure Lab [address] [place] [phone] documented as of this encounter Results * (ABNORMAL) Calprotectin, Fecal by Immunoassay(SENDOUT) (04/14/2024 11:06 AM EDT) Calprotectin, Fecal 87(H) <=49 ug/g 04/19/2024 11:26 PM EDT [facility] Comment: REFERENCE INTERVAL: Calprotectin, Fecal by Immunoassay Less than 50 ug/g.........Normal 50-120 ug/g...............Borderline elevated, test should be re-evaluated in 4-6 weeks. 121 ug/g or greater.......Elevated Performed By: [facility] [address] [place] [address] Human Resources Clerk: Wilber Pardo MD, PhD CLIA Number: [id number] Stool 04/14/2024 11:0 6 AM EDT 04/14/2024 11:47 AM EDT [facility] - GENERAL ORDERAB LES Final Result [facility] [address] [place] [address], [facility] [phone] documented in this encounter Visit Diagnoses Diagnosis Blood in stool- Primary documented in this encounter Care Teams Printing Roller Handler Relationship Specialty Start Date End Date Molly Louis MD [address] [place] [address] PCP - General 08/22/24 documented as of this encounter
--- OUTSIDE RECORDS SUMMARY | 2025-04-09 13:01 | XMS_ITS | Encounter Summary ---
Author Organization Healthcare Address [address] [place] [address] Care Team Providers Care Steam Crane Operator Name Role Phone Angela Oleary RN Unavailable Unavailable Rey Wyatt MD Primary Care Provider [phone] Encounter Details Date Type Department Care Team (Latest Contact Info) Description 04/04/2025 Travel Social History Tobacco Use Types Packs/Day [...] Patient Health Questionnaire-2 Score 0 12/15/2024 [facility]at [facility] [...] in a prison (including now)? No 02/09/2024 [place] Depression Scale Answer Date Recorded [place] Depression Scale Total 6 08/08/2024 The thought [...] first t casi in the morning (EYE-SENIOR TAX ACCOUNTANT) to steady your nerves or to get [...] EDT Appointment [facility] [address] [place] [address] Cony Mcelroy MD [address] [place] [address] 06/15/2025 12:30 PM EST Office Visit [place] [facility] [address] [place] [address] Kendy Sanchez, TELEPHONE SURVEYOR [address] [place] [address] 06/19/2025 8:00 AM EST Office Visit [facility] [place] [address], [address] [place] [address] Courtney Torres MD [address] [place] [address] 06/19/2025 12:30 PM EST Appointment [facility] [address] [place] [address] 06/21/2025 12:30 PM EST Appointment [facility] [address] [place] [address] documented as of this encounter [...] documented as of this encounter Care Teams Steam Crane Operator Relationship Specialty Start Date End Date Rey Wyatt MD [address] [place] [id number] PCP - General 11/16/24 Angela Oleary, RN [facility] Registered Nurse Cardiology 02/17/24 documented as of this encounter
--- OUTSIDE RECORDS SUMMARY | 2025-04-09 13:01 | XMS_ITS | Clinical Summary ---
Author Organization [facility] Address [address] [place] [address] Care Team Providers Care Senior International Tax Manager Name Role Phone Angela Oleary RN Unavailable Unavailable Rey Wyatt MD Primary Care Provider [phone] Allergies Active Allergy Reactions Criticality Noted Date [...] Active Additional Information Patient not taking.Reported on 04/04/2025 sodium chloride ([place] Nasal [place]ano) 0.65 % nasal spray Administer 1 spray into each nostril if needed for congestion. 30 mL 12 Active Blood Glucose Monitoring Suppl (OneTouch Verio Reflect) w/Device kit Active OneTouch Verio test strip 1 each by Other route if needed. Active Lancets (OneTouch Delica Plus [id number]) misc Active ibuprofen 600 MG tablet Take 1 tablet (600 mg) by mouth every 6 (six) hours if needed for mild pain. 30 tablet 1 Active Additional Information Patient not taking.Reported on 04/04/2025 senna-docusate (Codi-Colace) 8.6-50 MG tablet Take 1 tablet by mouth 1 (one) time each day. 30 tablet 1 Active Additional Information Patient not taking.Reported on 04/04/2025 acetaminophen (Tylenol) 325 MG capsule Take 2 capsules (650 mg) by mouth every 6 (six) hours if needed for mild pain. 30 capsule 1 Active ondansetron (Zofran) 4 MG tablet Take 1 tablet (4 mg) by mouth every 8 (eight) hours if needed for nausea or vomiting. 3 tablet 5 Active Additional Information Patient not taking.Reported on 04/04/2025 busPIRone (Buspar) 5 MG tablet Take 1 tablet (5 mg) by mouth every night. Takes at 8PM 30 tablet 025 Active famotidine (Pepcid) 20 MG tablet Take 1 tablet (20 mg) by mouth 2 (two) times a day. 60 tablet 11 025 Active cholecalciferol (Vitamin D-3) 50 MCG (2000 UT) capsule 025 Active Ventolin HFA 108 (90 Base) MCG/ACT inhaler 025 Active methIMAzole (Tapazole) 10 MG tablet Take 1 tablet by mouth daily. 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 90 tablet 3 025 Active fludrocortisone (Florinef) 0.1 MG tabletIndications :Pott's disease Take 1 tablet by mouth daily. 30 tablet 3 025 Active fluticasone (Flonase) 50 MCG/ACT nasal spray Administer 1 spray into each nostril daily. 025 Active ondansetron ODT (Zofran-ODT) 4 MG disintegrating tablet Dissolve 2 tablets on the tongue every 8 hours as needed for nausea or vomiting. 20 tablet 5 025 Active levothyroxine (Synthroid, Levoxyl) 25 MCG tablet Take 1 tablet by mouth daily. 025 Active simethicone (Mylicon) 80 MG chewable tablet Chew 1 tablet every 6 hours as needed. Active oral electrolytes (Thermotabs) tablet Take 1 tablet by mouth 2 times a day. 60 tablet 1 025 Active ketoconazole (NIZOral) 2 % shampoo USE SHAMPOO A BODY WASH, LATHER FOR 5 MINUTES THEN RINSE OFF. USE UNTIL RESOLVED. Active bisacodyl (Bisacodyl EC) 5 MG EC tablet Take all 4 tablets at 4 PM on day before colonoscopy IF INSURANCE DOES NOT COVER, please inform pt to purchase OTC 4 tablet 025 Active polyethylene glycol (GoLYTELY) 236 g solution SEE PHARMACY NOTES FOR PATIENT LABEL INSTRUCTIONS- for Colonoscopy prep protocol 4000 mL 025 Active Vit-Fe Fumarate-FA ( Vitamins) 28-0.8 MG tablet Take 1 tablet by mouth 1 (one) time each day. 30 tablet 11 024 2024 Additional Information Patient not taking.Reported on 03/15/2025 cefdinir (Omnicef) 300 MG capsule take one capsule by mouth every twelve hours for 10 days 025 2024 Discontinued Hospital, Clinic, or Other Facility Administered Medication Ordered Dose Route Frequency Start Date End Date Status sodium chloride 0.9 % infusion 250 mLIndications:Supervision of high risk in second trimester 250 mL IV Once 03/30/2024 Active Active Problems Problem Noted Date Diagnosed Date Epigastric pain 04/07/2025 Palpitations 08/17/2024 and not yet delivered in [...] Encounters Date Type Department Care Team Description 04/04/2025 4:00 PM EDT Office Visit [facility] Medicine Specialties [address] [place] [address] Donaldo Terry MD Epigastric pain (Primary Dx); Diarrhea, unspecified type; Gastroesophageal reflux disease, unspecified whether esophagitis present 04/04/2025 Travel 04/03/2025 Travel 03/15/2025 3:30 PM EDT Consult [facility] [address] [place] [address] Kendy Sanchez APRN Syncope, unspecified syncope type (Primary Dx) 03/15/2025 Travel 03/01/2025 10:13 AM EDT - 03/01/2025 11:59 PM EDT Hospital Encounter [facility] Pulmonary Function Testing [address] [place] [address] Dysautonomia-like disorder Discharge Disposition: Home or Self Care 03/01/2025 Travel 02/24/2025 Travel 02/16/2025 1:20 PM EDT Office Visit [facility] [place] [address] [facility] [facility] [address], [address] [place] [address] Courtney Torres MD Syncope and collapse (Primary Dx); Dysautonomia-like disorder 02/16/2025 Telephone [facility] [place] [address] [facility] [facility] [address], [address] [place] [address] None, None 02/16/2025 Travel 02/15/2025 Travel 01/18/2025 Results Follow-Up [facility] Endocrinology [address] [place] [address] Abundio Kyle 01/17/2025 6:36 AM EDT - 01/17/2025 11:59 PM EDT Hospital Encounter [facility] [address] [place] [address] Cody Barnett MD Abdominal pain, epigastric; Diarrhea, [...] Name Comments Autoimmune disease Brother 1 Tristan craft Crohn's disease Brother 1 Tristan malikft Immunodeficiency Brother 1 Tristan malikft Liver disease Brother 2 Scott ADD / [...] ang[place] Alive Maternal Grandmother Melania sheridan Mother Crystal malikft Mother's Sister Ashanti Alive Social History Tobacco Use Types Packs/Day Years Used Date Smoking Tobacco: Former Cigarettes 0.3 10 2 012 - 2022 Passive Smoke Exposure: Never Smokeless Tobacco: Former [...] Recorded Patient Health Questionnaire-2 Score 0 12/15/2024 [facility] - Occupational Stress Questionnaire Answer Date [...] in a fpc (including now)? No 02/09/2024 [place] Depression Scale Answer Date Recorded [place] Depression Scale Total 6 08/08/2024 The thought [...] drink first t acsi in the morning (EYE-HAND TUBE BENDER) to steady your nerves or to get rid of a hangover? 0 07/16/2024 CAGE Questionnaire Score 0 024 Utilities Answer Date Recorded In the past 12 months has th e [employer], gas, oil, or water [email or web address] threatened to shut off services in your [...] Pulse 69 04/04/2025 4:31 PM EDT Temperature 37.1 C (98.7 F) 01/17/2025 7:00 AM EDT Respiratory Rate 18 01/17/2025 7:00 AM EDT Oxygen Saturation 97% 04/04/2025 4:31 PM EDT ra Inhaled Oxygen Concentration - - Weight 72.1 kg (159 lb) 04/04/2025 4:31 PM EDT Height 167.6 cm (5' 6 ) 04/04/2025 4:31 PM EDT Body Mass Index 25.66 04/04/2025 4:31 PM EDT Plan of Treatment Upcoming Encounters Date Type Department Care Team (Late st Contact Info) Description 04/18/2025 8:40 AM EDT Appointment [facility] [address] [place] [address] Cony Mcelroy MD [address] [place] [address] 06/15/2025 12:30 PM EST Office Visit [place] [facility] [address], [address] [place] [address] Kendy Sanchez, BIOMEDICAL FIELD SERVICE ENGINEER [address] [place] [address] 06/19/2025 8:00 AM EST Office Visit [facility] [place] [place] [address], [address] [place] [address] Courtney Torres MD [address] [place] [address] 06/19/2025 12:30 PM EST Appointment [facility] Neuro[facility]iology [address] [place] [address] 06/21/2025 12:30 PM EST Appointment [facility] [address] [place] [address] Health Maintenance Due Date Last Done Comments [...] - Td or Tdap) 02/21/2020 02/20/2010, 04/26/2002 [id number] Vaccine (2 - Jasmine risk series) 03/21/2021 02/21/2021 [facility]-Influenza Vaccine (#1) 2025 04/29/2023 [facility]-Depression Screening 12/15/2025 025, 12/15/2024, 08/08/2024 [facility]-Zoster Vaccines (1 of 2) 2048 07/06/2001 [facility]-Hepatitis A Vaccines Completed 11/21/2010, 01/25 [facility]-Hepatitis C Screening Completed 02/07/2024 [facility]-HIV Screening Completed 04/18/2024, 02/07/2024 [facility]-Obesity Intervention Completed 025, 02/16/2025, 12/15/2024, Additional history exists [facility]-HIB Vaccines Aged Out No longer e ligible based on patient's age to complete this topic [facility]-Pneumococcal Vaccine: Pediatrics (0 to 5 Years) and At-Risk Patients (6 to 49 Years) Aged Out No longer eligible based on patient's age to complete this topic [facility]-Rotavirus Vaccines Aged Out No lo nger eligible based on patient's age to complete this topic Goals Goal Patient Goal Type Associated Problems Recent Progress Patient-Stated? Author Delayed Delivery Care Plan CPM S22 PP LABOR (OBSTETRICS) No Open Scheduling, Background Autogenerated Goal Care Plan Autogenerated Problem No Trent Lee Procedures Procedure Name Priority Date/Time Associated Diagnosis [...] from the original result were not included. [facility] Cardiopulmonary Exercise Testing Laboratory [...] sinus rhythm at 71 bpm. Heart Rate [place] unable to be determined Pulmonary Performance/Ventilatory Response: [...] at peak exercise was 87 L/min (Breathing [place] Ratio: 70%). VE/VCO2 slope unable to be obtained. Conclusion: Due to early termination of the test (after 1:30-2:00 minutes) unable to accurately interpret the findings. Can consider repeating in the future if the patient is able to exercise. Tay Barraza DO Sales Representative Uniformsclinical data management manager Cardiovascular Medicine Director of Sports Cardiology [facility] [place] Courtney Torres MD PFT ORDERABLES Final Result * (ABNORMAL) Cardiopulmonary Exercise Test (03/01/2025 11:19 AM EDT) [id number] 4.85(A) 3.04 - 4.60 L VYAIRE PFT FEV1 PRE 3.42 2.62 - 3.88 L VYAIRE PFT FEV1/FVC PRE 70.53(A) 74.27 - 94.96 % VYAIRE PFT REO11-26% PRE 2.34(A) 2.43 - 5.18 L/s VYAIRE PFT PEF PRE 8.68(A) 5.24 - 8.66 L/s VYAIRE PFT [id number] 126.25(A) 114.18 - 114.18 L/min VYAIRE PFT Anatomical Region Laterality Modality PFT 03/01/2025 10:2 6 AM EDT Narrative 03/01/2025 11:43 AM EDT Images from the original result were not included. [facility] Cardiopulmonary Exercise Testing Laboratory [...] sinus rhythm at 71 bpm. Heart Rate [place] unable to be determined Pulmonary Performance/Ventilatory Response: [...] at peak exercise was 87 L/min (Breathing [place] Ratio: 70%). VE/VCO2 slope unable to be obtained. Conclusion: Due to early termination of the test (after 1:30-2:00 minutes) unable to accurately interpret the findings. Can consider repeating in the future if the patient is able to exercise. Tay Barraza DO Sales Representative Uniformsclinical data management manager Cardiovascular Medicine Director of Sports Cardiology [facility] [place] Courtney Torres MD PFT ORDERABLES Final Result * Catecholamines, fractionated, plasma (02/16/2025 2:17 PM EDT) CATECHOLAMINES, INTERP See Note 02/27/2025 12:36 AM EDT [facility] ([facility]) DOPAMINE <130 <=240 pmol/L 02/27/2025 12:36 AM EDT [facility] (Glass [facility] Marker) EPINEPHRINE 167 <=330 pmol/L 02/27/2025 12:36 AM EDT [facility] ([facility]) NOREPINEPHRINE 1597 1050 - 4800 pmol/L 02/27/2025 12:36 AM EDT [facility] ([facility]) Blood Venous blood specimen / Unknown Venipuncture / Unknown 02/16/2025 2:17 PM EDT 02/16/2025 2:17 PM EDT Narrative [facility] ([facility]) - 02/27/2025 12:36 AM EDT INTERPRETIVE INFORMATION:Epinephrine [...] reference intervals for this test in the [facility] Test Directory (Xamarin). This test was developed and its performance characteristics determined by [facility]. It has not been cleared or approved by the US Food and Drug Administration. This test was performed in a CLIA certified laboratory and is intended for clinical purposes. Performed By: [facility] [address] [place] [address] Clinical Operations Leader: Wilber Pardo MD, PhD CLIA Number: [id number] Courtney Torres MD LAB BLOOD ORDERABLES Final Re sult [facility] [address] [place], [place] [id number] * Tryptase (02/16/2025 2:17 PM EDT) TRYPTASE 4.3 <=10.9 ug/L 02/19/2025 2:04 PM EDT [facility]) Serum Venous blood specimen / Unknown 02/16/2025 2:17 PM EDT 02/16/2025 2:17 PM EDT Narrative [facility] NUN[facility]Z) - 02/19/2025 2:04 PM EDT Performed By: [facility] [address] [place] [address] Clinical Operations Leader: Wilber Pardo MD, PhD CLIA Number: [id number] Courtney Torres MD LAB BLOOD ORDERABLES Final Re sult Performing Organization Address City/[facility]/ZIP Co de Phone Number [facility] ([place]) [address] [place] [address] * (ABNORMAL) Ferritin, Serum (02/16/2025 2:17 PM EDT) Ferritin, Serum 6(L) 13 - 150 ng/mL 02/16/2025 6:17 PM EDT [facility] Blood Venous blood specimen / Unknown Venipuncture / Unknown 02/16/2025 2:17 PM EDT 02/16/2025 2:17 PM EDT Courtney Torres MD LAB BLOOD ORDERABLES Final Re sult Performing Organization Address [facility] Co de Phone Number [facility] [address] [place] [address] * Cortisol (02/16/2025 2:17 PM EDT) Cortisol 2.80 Before 10am: 3.7 - 19.4. After 5pm: 2.9 - 17.3 ug/dL 02/16/2025 6:36 PM EDT [facility] Comment:Testing performed on [employer] Sales Representative, standardized against CUSTODIAL Reference Standard concentration values assigned by LC-MS/MS and verified by BCR 192 and BCR 193 certified reference materials. Blood Venous blood specimen / Unknown Venipuncture / Unknown 02/16/2025 2:17 PM EDT 02/16/2025 2:17 PM EDT Courtney Torres MD LAB REF LAB BLOOD AND FLUID O RD Final Result Performing Organization Address [facility]/ZIP Co de Phone Number [facility] [address] [place] [address] * Capsule Endoscopy (01/19/2025 3:17 PM EDT) [...] - 4.3 pg/mL 01/18/2025 11:56 PM EDT [facility] ([facility]) Blood Venous blood specimen / Unknown Venipuncture / Unknown 01/17/2025 8:47 AM EDT 01/17/2025 8:47 AM EDT Narrative [facility] ([place]) - 01/18/2025 11:56 PM EDT REFERENCE INTERVAL: Triiodothyronine, Free (Free T3) Access complete set of age- and/or gender-specific reference intervals for this test in the [facility] Test Directory (Xamarin). Performed By: [facility] [address] [place] [address] Clinical Operations Leader: Wilber Pardo MD, PhD CLIA Number: [id number] us Saskia Garcia MD LAB BLOOD ORDERABLES Final Resul t [facility] ([facility]) [address] [place] [address] * Thyroid Stimulating Hormone Receptor Antibody (01/17/2025 8:47 AM EDT) TSH Receptor Antibody <1.10 <=1.75 IU/L 01/19/2025 1:20 AM EDT [facility] Serum Venous blood specimen / Unknown 01/17/2025 8:47 AM EDT 01/17/2025 8:47 AM EDT [facility] NUNE[facility]) - 01/19/2025 1:20 AM EDT Performed By: [facility] [address] [place] [address] Clinical Operations Leader: Wilber Pardo MD, PhD CLIA Number: [id number] Saskia Garcia MD LAB BLOOD ORDERABLES Final Resul t [facility] [address] [place] [address] * Thyroid stimulating immunoglobulin (01/17/2025 8:47 AM EDT) Pathologist [facility] TSI Result 0.11 <=0.54 IU/L 01/19/2025 12:49 AM EDT [facility] ([place]) Serum Venous blood specimen / Unknown 01/17/2025 8:47 AM EDT 01/17/2025 8:47 AM EDT [facility] NUNEZ) - 01/19/2025 12:49 AM EDT [...] medical history, and other findings. Performed By: [facility] [address] [place] [address] Clinical Operations Leader: Wilber Pardo MD, PhD CLIA Number: [id number] us Saskia Garcia MD LAB BLOOD ORDERABLES Final Resul t [facility] ([place] [address] * TSH (01/17/2025 8:47 AM EDT) Thyroid [...] ORDERABLES Final Resu lt Performing Organization Address [facility] Co de Phone Number [facility] [address] [place] [address] * T4, free (01/17/2025 8:47 AM EDT) [...] LAB BLOOD ORDERABLES Final Resu lt [facility] [address] [place] [address] * HIV 1 & 2 Antibody/Antigen Screen (04/18/2024 10:13 AM EDT) Pathologist [facility] HIV 1 & 2 Antibody/Antigen [...] ORDERABLES Susannah l Result Performing Organization Address City/[facility] Co de Phone Number [facility] [address] [place] [address] * Hepatitis C Antibody - ED (02/07/2024 10:11 PM EDT) [facility] Hepatitis C Antibody Negative Negative 02/07/2024 11:11 PM EDT [facility] Blood Venous blood specimen / Unknown Venipuncture / Unknown 02/07/2024 10:11 PM EDT 02/07/2024 10:18 PM EDT us Mark Roger MD LAB BLOOD ORDERABLES Final Resu lt Performing Organization Address [facility] Co de Phone Number [facility] [address] [place] [address] from Last 3 Months or Most Recently Relevant to Health Maintenance Additional Health Concerns Active Problems Noted Date Diagnosed Date CPM S22 PP LABOR (OBSTETRICS) 02/24/2024 Autogenerated Problem 04/07/2025 Insurance [place] Advance Directives * Full Code (Latest Code [...] Patient has decision-making capacity? Yes Care Teams Senior International Tax Manager Relationship Specialty Start Date End Date Rey Wyatt MD [address] [place] [address] [place] [address] PCP - General 11/16/24 Angela Oleary, RN [facility] Registered Nurse Cardiology 02/17/24
--- OUTSIDE RECORDS SUMMARY | 2025-04-09 13:01 | XMS_ITS | Clinical Summary ---
Author Organization [employer] ([place], [place], [place], [place]) Address [address] [place] [address] Care Team Providers Care Commercial Food Instructor Name Role Phone Molly Louis MD Primary Care Provider [phone] Allergies Active Allergy Reactions Criticality Noted Date [...] Info) Description 04/17/2025 12:30 PM EDT Appointment [facility] Procedure Lab [address] [place] [address] Health Maintenance Due Date Last [...] (#1) 2025 Medical Devices Implanted Type Area Revenue Officer Device Identifier Shelf Expiration Date Model / Serial / Lot K-Wire [id number] - [id number] Implanted:Qty: 1 on 08/04/2022 by Rex Rene MD at [facility] IMPLANTS Right: Hand ANNIA:[employer] [id number] / / Wire K-Wire 1.6mm - [id number] Implanted:Qty: 1 on 08/04/2022 by Rex Rene MD at [facility] IMPLANTS Right: Hand BUCK MED GRP:BUCK MED TECH / / Insurance [facility] [place] [address] Advance Directives For more information, please contact: [phone] * Full Code (Latest Code Status on File) Date Activated Date Inactivated Comments 08/04/2022 6:03 AM 08/04/2022 11:35 AM Care Teams Commercial Food Instructor Relationship Specialty Start Date End Date Molly Louis MD [address] [place] [address] [address] [place] [address] PCP - General 08/22/24
--- OUTSIDE RECORDS SUMMARY | 2025-04-09 13:01 | XMS_ITS | Encounter Summary ---
Author Organization Healthcare Address [address] [place] [address] Care Team Providers Care Shrinking Machine Operator Name Role Phone Angela Oleary RN Unavailable Unavailable Rey Wyatt MD Primary Care Provider [phone] Encounter Details Date Type Department Care Team (Late st Contact Info) Description 12/20/2024 Results Follow-Up [facility] Medicine Specialties [address] [place] [address] Silverio Tam PA [address] [place] [address] Social History Tobacco Use Types [...] Recorded Patient Health Questionnaire-2 Score 0 12/15/2024 [facility]ational Stress Questionnaire Answer [...] in a mcc (including now)? No 02/09/2024 [place] Depression Scale Answer Date Recorded [place] Depression Scale Total 6 08/08/2024 The thought [...] first t casi in the morning (EYE-CERTIFIED ADDICTION COUNSELOR) to steady your nerves or to [...] EDT Appointment [facility] [address] [place] [address] Cony Mcelroy MD [address] [place] [address] 06/15/2025 12:30 PM EST Office Visit [place] [facility] [address] [place] [address] Kendy Sanchez, TRISTAN [address] [place] [address] 06/19/2025 8:00 AM EST Office Visit [facility] [place] [address], [address] [place] [address] Courtney Torres MD [address] [place] [address] 06/19/2025 12:30 PM EST Appointment [facility] [address] [place] [address] 06/21/2025 12:30 PM EST Appointment [facility] [address] [place] [address] documented as of this encounter Goals Goal [...] documented as of this encounter Care Teams Shrinking Machine Operator Relationship Specialty Start Date End Date Rey Wyatt MD [address] [facility] [address] [place] [address] PCP - General 11/16/24 Angela Oleary, RN [facility] Registered Nurse Cardiology 02/17/24 documented as of this encounter
--- OUTSIDE RECORDS SUMMARY | 2025-04-09 13:01 | XMS_ITS | Encounter Summary ---
Author Organization Healthcare Address [address] [place] [address] Care Team Providers Care Burrer Operator Name Role Phone Pcp, No Primary Care Provider UnavailMolly Newman MD Primary Care Provider [phone] Angela Oleary RN Unavailable Unavailable Rey Wyatt MD Primary Care Provider [phone] Encounter Details Date Type Department Care Team (Late Contact Info) Description 01/22/2024 Orders Only External Location [address] [place] [address] Provider, External Social History Tobacco Use Types [...] Month) No 01/23/2024 2:42 PM EDT Parmjit Rioc RN 6. Suicidal Behavior (Lifetime) No 2:42 PM EDT Parmjit Rico RN documented as of this encounter Plan of Treatment Upcoming Encounters Date Type Department Care Team (Late Contact Info) Description 04/18/2025 8:40 AM EDT Appointment [facility] [address] [place] [address] Cony Mcelroy MD [address] [place] [address] 06/15/2025 12:30 PM EST Office Visit [place] [facility] [address] [place] [address] Kendy Sanchez, MANAGER ONCOLOGY [address] [place] [address] 06/19/2025 8:00 AM EST Office Visit [facility] [place] [address] [place] [address] Courtney Torres MD [address] [place] [address] 06/19/2025 12:30 PM EST Appointment [facility] [address] [place] [address] 06/21/2025 12:30 PM EST Appointment [facility] [address] [place] [address] documented as of this encounter Procedures Procedure [...] documented as of this encounter Care Teams Burrer Operator Relationship Specialty Start Date End Date Pcp, No [address] [place] [address] PCP - General Family Medicine 01/22/24 02/08/24 Molly Louis MD [address] [place] [address] PCP - General Family Medicine 02/09/24 11/15/24 [place] [address] [place] [address] [place], [place] [id number] PCP - General 11/16/24 Angela Oleary, RN [facility] Registered Nurse Cardiology 02/17/24 documented as of this encounter
--- OUTSIDE RECORDS SUMMARY | 2025-04-09 13:01 | XMS_ITS | Referral Summary ---
Author Organization [employer] ([place], [place], [place], [place]) Address [address] [place] [address] Care Team Providers Care Security Operations Engineer Name Role Phone Molly Louis MD Primary Care Provider [phone] Allergies Active Allergy Reactions Criticality Noted Date [...] Date Guerrero rded Speak language other than Sudanese at home Not on file 08/13/2023 Want [...] Info) Description 04/17/2025 12:30 PM EDT Appointment [facility] Procedure Lab [address] [place] [phone] Medical Devices Implanted Type Area Textile Colorist Dyer Device Identifier Shelf Expiration Date Model / Serial / Lot K-Wire [id number] - [id number] Implanted:Qty: 1 on 08/04/2022 by Rex Rene MD at [facility] IMPLANTS Right: Hand [employer] [id number] / / Wire K-Wire 1.6mm - [id number] Implanted:Qty: 1 on 08/04/2022 by Rex Rene MD at [facility] IMPLANTS Right: Hand BUCK MED GRP:BUCK MED TECH / / Insurance [facility] Advance Directives For more information, please contact: [phone] * Full Code (Latest Code Status on File) Date Activated Date Inactivated Comments 08/04/2022 6:03 AM 08/04/2022 11:35 AM Care Teams Security Operations Engineer Relationship Specialty Start Date End Date Molly Louis MD [address] [place] [address] [address] [place] [phone] PCP - General 08/22/24
--- OUTSIDE RECORDS SUMMARY | 2025-04-09 13:01 | XMS_ITS | Encounter Summary ---
Author Organization Healthcare Address [address] [place] [address] Care Team Providers Care Chemical Educator Name Role Phone Angela Oleary RN Unavailable Unavailable Rey Wyatt MD Primary Care Provider [phone] Encounter Details Date Type Department Care Team (Latest Contact Info) Description 04/03/2025 Travel Social History Tobacco Use Types Packs/Day [...] a senior care (including now)? No 02/09/2024 [place] Depression Scale Answer Date Recorded [place] Depression Scale Total 6 08/08/2024 The thought [...] drink first t casi in the morning (EYE-CIGARETTE MAKING EXAMINER) to steady your nerves or to [...] EDT Appointment [facility] [address] [place] [address] Cony Mcelroy MD [address] [place] [address] 06/15/2025 12:30 PM EST Office [facility] [place] [facility] [address], [address] [place] [address] Kendy Sanchez, TAPE WEAVER [address] [place] [address] 06/19/2025 8:00 AM EST Office Visit [facility] [place] [address], [address] [place] [address] Courtney Torres MD [address] [place] [address] 06/19/2025 12:30 PM EST Appointment [facility] [address] [place] [address] 06/21/2025 12:30 PM EST Appointment [facility] [address] [place] [address] documented as of this encounter [...] documented as of this encounter Care Teams Chemical Educator Relationship Specialty Start Date End Date Rey Wyatt MD [address] [place] [address] [place] [id number] PCP - General 11/16/24 Angela Oleary, RN [facility] Registered Nurse Cardiology 02/17/24 documented as of this encounter
--- OUTSIDE RECORDS SUMMARY | 2025-04-09 13:01 | XMS_ITS | Encounter Summary ---
Author Organization Healthcare Address [address] [id number] Care Team Providers Care Rotary Bar Operator Name Role Phone Molly Louis MD Primary Care Provider [phone] Angela Oleary RN Unavailable Unavailable Rey Wyatt MD Primary Care Provider [phone] Reason for Visit * Reason Onset Date Comments Med Refill 03/03/2024 Encounter Details Date Type Department Care Team (Late st Contact Info) Description 03/03/2024 Refill [facility] Inpatient [address] [place] [address] Paris Marion MD [address] [place] [address] Social History Tobacco Use Types Packs/Day Years [...] [facility] ional [facility] - Occupational Stress Questionnaire Answer [...] in a halfway (including now)? No 02/09/2024 [place] Depression Scale Answer Date Recorded [place] Depression Scale Total 8 02/22/2024 The thought [...] EDT Appointment [facility] [address] [place] [address] Cony Mcelroy MD [address] [place] [address] 06/15/2025 12:30 PM EST Office Visit [place] [facility] [address], [address] [place] [address] Carlitasingh Kendy, SALES DIRECTOR [address] [place] [address] 06/19/2025 8:00 AM EST Office Visit [facility] [place] [address], [address] [place] [address] Courtney Torres MD [address] [place] [address] 06/19/2025 12:30 PM EST Appointment [facility] [address] [place] [phone] 06/21/2025 12:30 PM EST Appointment [facility] [address] [place] [phone] documented as of this encounter Goals Goal [...] as of this encounter Care Teams Rotary Bar Operator Relationship Specialty Start Date End Date Molly Louis MD [address] [place] [address] PCP - General Family Medicine 02/09/24 11/15/24 Rey Wyatt MD [address] [place] [address] PCP - General 11/16/24 Angela Oleary, RN [facility] Registered Nurse Cardiology 02/17/24 documented as of this encounter
--- OUTSIDE RECORDS SUMMARY | 2025-04-09 13:01 | XMS_ITS | Encounter Summary ---
Author Organization [employer] ([place], [place], [place], [place]) Address [address] [place] [address] Care Team Providers Care Event Marketing Specialist Name Role Phone Molly Louis MD Primary Care Provider [phone] Encounter Details Date Type Department Care Team (Late st Contact Info) Description 08/22/2024 Outside Orders [facility] Admitting [address] [place] [address] Silverio Tam, PA [address] [place] [address] Esophageal reflux (Primary Dx) Social History Tobacco [...] Date Guerrero rded Speak language other than Monegasque at home Not on file 08/13/2023 Want [...] Info) Description 04/17/2025 12:30 PM EDT Appointment [facility] Procedure Lab [address] [place] [address] documented as of this encounter Results * Helicobacter pylori Ag, Fecal by EIA(SENDOUT) (08/22/2024 11:35 AM EST) Helicobacter pylori Ag, by EIA Negative Negative 08/23/2024 10:57 PM EST [facility] Comment: Performed By: [facility] [address] [place] [address] Industrial Equipment Mechanic: Wilber Pardo MD, PhD CLIA Number: [id number] Stool 08/22/2024 11:3 5 AM EST 08/22/2024 11:36 AM EST [facility] - GENERAL ORDERAB LES Final Result [facility] [address] [place] [address], [facility] [phone] * Calprotectin, Fecal by Immunoassay(SENDOUT) (08/22/2024 11:35 AM EST) Calprotectin, Fecal 26 <=49 ug/g 08/26/2024 8:14 AM EST [facility] Comment: REFERENCE INTERVAL: Calprotectin, Fecal by Immunoassay Less than 50 ug/g........Normal 50-120 ug/g..............Borderline elevated, test should be re-evaluated in 4-6 weeks. 121 ug/g or greater......Elevated Performed By: [facility] [address] [place] [address] Industrial Equipment Mechanic: Wilber Pardo MD, PhD CLIA Number: [id number] Stool 08/22/2024 11:3 5 AM EST 08/22/2024 11:36 AM EST us [facility] - GENERAL ORDERAB LES Final Result Performing Organization Address City/State/[facility] Co de Phone Number [facility] [address] [phone] documented in this encounter Visit Diagnoses Diagnosis Esophageal reflux- Primary documented in this encounter Care Teams Event Marketing Specialist Relationship Specialty Start Date End Date Molly Louis MD [address] [place] [address] PCP - General 08/22/24 documented as of this encounter
--- OUTSIDE RECORDS SUMMARY | 2025-04-09 13:01 | XMS_ITS | Encounter Summary ---
Author Organization Healthcare Address [address] [place] [address] Care Team Providers Care Photovoltaic Fabrication Technician Name Role Phone Molly Louis MD Primary Care Provider [phone] Angela Oleary RN Unavailable Unavailable Rey Wyatt MD Primary Care Provider [phone] Reason for Visit * Reason Onset Date Comments Med Refill 03/03/2024 Encounter Details Date Type Department Care Team ([facility] Contact Info) Description 03/03/2024 Refill Medical Office Building Obstetrics and Gynecology [address], [address] [place] [address] SterlingEarle Villagomez MD [address] [place] [address] Supervision of high risk in [...] How often do you attend chur or christianity services? Never 02/22/2024 Do you [...] 0 02/17/2024 [facility] - Occupational [...] in a mcc (including now)? No 02/09/2024 [place] Depression Scale Answer Date Recorded [place] Depression Scale Total 8 02/22/2024 The thought [...] requesting to speak with a nurse- see [employer] [facility] for details about symptoms she is experiencing. * Telephone Encounter - Luh Keenan RN - 03/04/2024 1:56 PM EDT Patient has refills on file. Needs to call pharmacy. Luh Keenan, RN documented in this encounter Plan of Treatment Upcoming Encounters Date Type Department Care Team (Late st Contact Info) Description 04/18/2025 8:40 AM EDT Appointment [facility] [address] [place] [address] Cony Mcelroy MD [address] [place] [address] 06/15/2025 12:30 PM EST Office Visit [place] [facility] [address], [address]st [place] [address] Kendy Sanchez, FILM SOUND ENGINEER [address] [place] [address] 06/19/2025 8:00 AM EST Office Visit [facility] [place] [address], [address] [place] [address] Courtney Torres MD [address] [place] [address] 06/19/2025 12:30 PM EST Appointment [facility] [address] [place] [address] 06/21/2025 12:30 PM EST Appointment [facility] [address] [place] [address] documented as of this encounter Goals Goal [...] documented as of this encounter Care Teams Photovoltaic Fabrication Technician Relationship Specialty Start Date End Date Molly Louis MD [address] [place], [place] [phone] PCP - General Family Medicine 02/09/24 11/15/24 Rey Wyatt MD [address] [place], [place] [phone] PCP - General 11/16/24 Angela Oleary, RN [facility] Registered Nurse Cardiology 02/17/24 documented as of this encounter
--- NOTE | 2025-04-09 13:04 | ED_ITS ---
<Statement entered by Suzette Zaragoza MD - 04/10/25 14:44> I was consulted by the DIMITRI, and we discussed the complexity of the problems being addressed. I approved the treatment and management plan for this patient's care in the emergency department, thus performing a substantive portion of the medical decision making. Suzette Zaragoza MD, SUN, FACE Discharge Plan Disposition Patient Disposition: Home, Self-Care Prescriptions Prescriptions: No Action famotidine 20 mg tablet 20 mg PO DAILY levothyroxine 25 mcg tablet PO Patient Comments: TAKE ONE TABLET BY MOUTH EVERY DAY fludrocortisone 0.1 mg tablet 0.1 mg PO DAILY 30 Days Qty: 30 2RF methimazole 10 mg tablet 10 mg PO BID Qty: 60 2RF buspirone 5 mg tablet See Rx Instructions .ROUTE .COMPLEX Qty: 30 2RF Dose Instruction: TAKE ONE TABLET BY MOUTH AT BEDTIME Rx Instructions: TAKE ONE TABLET BY MOUTH AT BEDTIME ondansetron 4 mg tablet,disintegrating 4 mg PO Q8HP PRN (Reason: nausea and vomiting) Qty: 20 0RF ferumoxytol [Feraheme] 510 mg/17 mL (30 mg/mL) solution 510 mg IV Q3D Rx Instructions: administer over at least 15 minutes propranolol 20 mg tablet See Rx Instructions .ROUTE .COMPLEX Qty: 90 2RF Dose Instruction: TAKE 1 AND 1/2 TABLET BY MOUTH THREE TIMES DAILY Rx Instructions: TAKE 1 AND 1/2 TABLET BY MOUTH THREE TIMES DAILY cholecalciferol (vitamin D3) 25 mcg (1,000 unit) tablet 4,000 unit PO DAILY Patient Comments: TAKE FOUR TABLETS BY MOUTH EVERY DAY sodium chloride 1,000 mg Tablet,Soluble 1,000 mg PO BID 30 Days Qty: 60 0RF Referrals Follow up/Referrals: Provider,Referral, [Referring, Medical] - See instructions Activity Restrictions/Add. Instructions Additional Instructions/Restrictions: Today you were evaluated in the emergency department for chest pain. Your workup is overall unremarkable. Your heart enzyme is negative. You were given IV fluids during your ED stay. Please continue to take Tylenol as needed for pain. Please follow-up with your PCP within 48 hours. Please return to the ED for any worsening of condition. Clinical Impressions Clinical Impression: Atypical chest pain Instructions Patient Instructions: DI for Atypical Chest Pain Print Language Print Language: Czech Discharge ED Provider: Suzette Zaragoza HPI General Chief Complaint: Chest Pain Stated Complaint: chest pain Time Seen by Provider: 04/09/25 12:45 Mode of Arrival: Wheelchair Source of Information: Patient Description of Symptoms (Recalled from ER Triage Doc. by RN): pt presents to the ED with chest tightness, shortness of breath, dizziness and weakness. pt reports that she has POTS and hasn't walked in over a year and was at buddhist and tried to walk when she started having chest tightness and shortness of breath. pt states that her arms and legs feel heavy. pt reports that she has had intermittent sharp chest pain on the left side for the past 4 days. History of Present Illness HPI narrative: patient is a 24-year-old female PMHx POTS, orthostatic syncope, Tricia's, Gilbert's disease, history of palpitations, anxiety who presents to the ED after an episode of chest pain that occurred during buddhist today. Patient states that she attempted to not use her wheelchair today, walking a short distance however when she sat down she began having left-sided chest pain and mild shortness of breath. Patient states although the shortness of breath has resolved she continues to have chest pain, denies radiation of pain. Related Data Home Medications ?Medication ?Instructions ?Recorded ?Confirmed cholecalciferol (vitamin D3) 25 4,000 unit PO DAILY 03/31/25 mcg (1,000 unit) tablet famotidine 20 mg tablet 20 mg PO DAILY 02/01/2512/18 levothyroxine 25 mcg tablet mcg PO 03/31/25 03/31/25 Previous Rx's ?Medication ?Instructions ?Recorded sodium chloride 1,000 mg soluble 1,000 mg PO BID 30 da ys #60 tabs 12/01/24 tablet methimazole 10 mg tablet 10 mg PO BID #60 tabs Held on 02/02/25. Instructions: Home Medication placed on hold at Doctor's office buspirone 5 mg tablet See Rx Instructions .Route 0 03/13/25 .COMPLEX #30 tabs ondansetron 4 mg disintegrating 4 mg PO Q8HP PRN nause a and 03/20/25 tablet vomiting #20 tabs fludrocortisone 0.1 mg tablet 0.1 mg PO DAILY 30 days #30 tabs 03/31/25 ferumoxytol 510 mg/17 mL (30 510 mg (17 mL) IV Q3D 2 d oses 04/05/25 mg/mL) intravenous solution (Feraheme) propranolol 20 mg tablet See Rx Instructions .Route 0 04/06/25 .COMPLEX #90 tabs Allergies Allergy/AdvReac Type Severity Reaction Status Date / Time cinnamon Allergy Severe Swelling Verified 03/31/25 15:24 of Lip/Tongue/Throat amoxicillin (From Augmentin) Allergy Rash Verified 03/31/25 15:24 clavulanic acid (From Allergy Rash Verified 03/31/25 15:24 Augmentin) Penicillins Allergy Rash Verified 03/31/25 15:24 PFSH PFS Disclaimer: The information contained in this section may have been updated after the patient was seen, as this information can be updated by other users. Medical History Orthostatic syncope Autonomic dysfunction Syncope Gilbert's disease Anemia Chest pain Hot flashes Hyperthyroidism Tachycardia Abnormal thyroid blood test Elevated cortisol level IUD check up Encounter for insertion of intrauterine contraceptive device (IUD) Encounter for gynecological examination (general) (routine) without abnormal findings Weakness Syncope Indirect hyperbilirubinemia Vomiting and diarrhea Second trimester Hypokalemia Tachycardia Syncope Hyperemesis affecting , antepartum Vomiting Heart palpitations Hypertension affecting Panic attack Syncope Near syncope Palpitations Sinus tachycardia Chest pain during Depression Anxiety Palpitations IUD (intrauterine device) in place Adrenal disorder POTS (postural orthostatic tachycardia syndrome) Anxiety disorder affecting , antepartum Norovirus Enteritis due to Norovirus Elevated brain natriuretic peptide (BNP) level of unknown anatomic location Diarrhea Herpes simplex of female genitalia Tobacco dependence syndrome Surgical History Hx of cholecystectomy H/O hand surgery right Hx of dilation and curettage Hx of tonsillectomy Family History Other Family history of myocardial infarction Family history of stroke Social History Smoking Status: Never smoker smoking status stop date: 2023 second hand exposure: Yes alcohol intake: former substance use type: denies use current occupational status: unemployed Travel in the last 8 weeks?: None housing: house Have you lived/traveled outside US in past 30 days?: No Contact w/someone who lives/traveled outside US past 30 days?: No Exposure to someone with infectious disease in past 14 days?: No Do you have a fever (greater than 100.4 F or 38 C)?: No Have you tested positive for COVID-19?: No Exposed to someone with COVID-19 in past 14 days?: No Do you have a sore throat?: No Do you have a cough?: No Do you have any weakness?: No Do you have any diarrhea?: No Are you experiencing any unusual bleeding?: No Do you have any muscle aches/pain?: No Do you have any abdominal pain?: No Are you experiencing loss of taste or smell?: No Other Medical History Have you received the Flu Vaccine for this season: No Have you received the Pneumonia Vaccine: No ROS Obtained: Yes Systems reviewed as appropriate & no additional complaints except as documented Physical Exam General General appearance: alert and in no apparent distress Head Head exam: atraumatic and normocephalic Eye Eye exam: Present normal appearance and PERRL ENT ENT exam: Present normal exam Neck Neck exam: Present normal inspection Chest Chest inspection: Present normal inspection and symmetric chest wall rise; Absent tenderness Respiratory Respiratory exam: Present normal lung sounds bilaterally Cardiovascular Cardiovascular exam: Present regular rate Abdominal Exam Abdominal exam: Present soft and normal bowel sounds; Absent tenderness Extremities Exam Extremities exam: Present normal inspection and full ROM Back Exam Back exam: Present normal inspection and full ROM Neurological Exam Neurological exam: Present alert and oriented X3 Psychiatric Psychiatric exam: Present normal affect and normal mood Skin Skin exam: Present warm and dry HEART Score HEART Score HEART Score assessment performed?: No History (anamnesis): Slightly suspicious ECG: Normal Age: <45 years Risk factors: No known risk factors Troponin: </= normal limit HEART Score: 0 Critical Care Critical Care Time Critical Care Time: No Medical Decision Making Paresh Inquiry Pt receiving controlled substance: No Vital Signs Vital Signs: 04/09/25 12:50 04/09/25 12:50 04/09/25 12:58 Temperature 98.1 F Temperature Source Oral Pulse Rate 77 77 Pulse Rate [Right] 77 Respiratory Rate 17 17 Blood Pressure 137/91 H Blood Pressure [Right Arm] 137/91 H Blood Pressure Mean [Right Arm] 106 Blood Pressure Source Automatic Cuff Blood Pressure Source [Right Arm] Automatic Cuff Blood Pressure Position Supine Blood Pressure Position [Right Arm] Supine 02 Sat by Pulse Oximetry 100 100 Oxygen Delivery Method Room Air Room Air 04/09/25 13:00 04/09/25 13:45 04/09/25 14:24 Temperature 98.4 F Temperature Source Oral Pulse Rate 80 79 71 Pulse Rate [Right] Respiratory Rate 14 12 18 Blood Pressure 127/78 127/78 Blood Pressure [Right Arm] Blood Pressure Mean [Right Arm] Blood Pressure Source Automatic Cuff Blood Pressure Source [Right Arm] Blood Pressure Position Supine Blood Pressure Position [Right Arm] 02 Sat by Pulse Oximetry 100 96 Oxygen Delivery Method Room Air Lab Data Labs: Lab Results 04/09/25 13:00: WBC 5.6, RBC 4.91, Hgb 13.3, Hct 41.0, MCV 83.5, MCH 27.1, MCHC 32.4, RDW 15.1, Plt Count 183, MPV 11.9 H, Neut % (Auto) 65.5, Lymph % (Auto) 27.3, [place] % (Auto) 5.7, Eos % (Auto) 0.4, Baso % (Auto) 0.9, Neut # (Auto) 3.7, Lymph # (Auto) 1.5, [place] # (Auto) 0.3, Eos # (Auto) 0.0, Baso # (Auto) 0.1, Sodium 141, Potassium 4.2, Chloride 107, Carbon Dioxide 23, Anion Gap 15.2 H, BUN 8, Creatinine 0.80, Estimated Creat Clear 121, Estimated GFR 87, Est GFR ( Amer) 105, Glucose 94, Calcium 10.0, Total Bilirubin 1.7 H, AST 30, ALT 15, Alkaline Phosphatase 46, Troponin I < 0.01, Total Protein 8.7 H, Albumin 5.1 H, Globulin 3.6 H, Albumin/Globulin Ratio 1.4, HCV Ab ADRY w/Rflx PCR Qn Negative, HIV Ag/Ab Combo Qual Negative 04/09/25 13:00 04/09/25 13:00 Response Orders (Tests/Meds): ED MEDICATIONS Discontinued Medications Generic Name Dose Route Start Last Admin Trade Name Freq PRN Reason Stop Dose Admin Acetaminophen 1,000 mg 04/09/25 12:56 04/09/25 13:21 Acetaminophen 500mg Tab PO 04/09/25 12:57 1,000 mg ONCE ONE Administration Sodium Chloride 1,000 mls @ 999 mls/hr 04/09/25 12:56 04/09/25 13:21 Sod Chlor 0.9% 1000ml Bag IV 04/09/25 13:56 999 mls/hr .Q1H1M ONE Administration ORDERS Category Date Time Status CBC w/Auto Diff [Complete Blood Count Auto Diff] Stat Lab 04/09/25 13:00 Completed CMP [Comprehensive Metabolic Panel] Stat Lab 04/09/25 13:00 Completed HIV Combo Stat Lab 04/09/25 13:00 Completed Hepatitis C Ab Qual. W/ RFX Stat Lab 04/09/25 13:00 Completed Trop I [Troponin I] Stat Lab 04/09/25 13:00 Completed EKG Request [ECG Request] Stat Y 04/09/25 12:56 Ordered MDM Narrative Medical Decision Narrative: In summary, patient is a 24-year-old female PMHx POTS, orthostatic syncope, Tricia's, Gilbert's disease, history of palpitations, anxiety who presents to the ED after an episode of chest pain that occurred during buddhist today. Patient states that she attempted to not use her wheelchair today, walking a short distance however when she sat down she began having left-sided chest pain and mild shortness of breath. Patient states although the shortness of breath has resolved she continues to have chest pain, denies radiation of pain. Patient has not had any medication prior to arrival, has been drinking water and has her water bottle at bedside. Reports that she was seen by her primary care provider on 03/31/2025 and had labs, states that her ferritin is low and she is discussing iron tablets with her PCP. Denies fever, headache, visual disturbances, neck pain, back pain, abdominal pain, nausea, vomiting, dysuria. Upon initial evaluation she is alert, oriented and cooperative. She is hemodynamically stable. Physical exam is unremarkable. Differential diagnosis include atypical chest pain, POTS, orthostatic hypotension, infectious process, electrolyte abnormality. Discussed with patient that we will proceed with cardiac workup. Shared decision making used, we elected to not perform a chest x-ray at this time as patient has had multiple chest x-rays in the past, some recently which were unremarkable. We discussed that if labs come back and are concerning, if symptoms change or develop while in the ED, we will reconsider a chest x-ray. Patient is agreeable. CBC unremarkable for any leukocytosis, stable H&H. CMP unremarkable for any actionable abnormalities. Troponin < 0.01. Upon reassessment, patient states that her condition has improved. She still feels tired. We discussed that she will need to follow-up with her primary care provider for further evaluation. We discussed very strict return precautions to the ED. Discussed that she needs to increase her fluid intake and continue to take acetaminophen for pain.
[2025-04-09 13:08] LABS: Hematocrit 41.0 % (37.0-47.0); Hemoglobin 13.3 g/dL (12.2-16.2); Immature Granulocytes % 0.2 %; Mean Corpuscular HGB Conc 32.4 g/dL (31.8-35.4); Mean Corpuscular Hemoglobin 27.1 pg (27.0-31.2); Mean Corpuscular Volume 83.5 fl (81-99); Nucleated Red Blood Cells % 0 %; Platelet Count 183 K/mm3 (142-424); Red Blood Count 4.91 M/mm3 (4.20-5.40); Red Cell Distribution Width-SD 45.7 fL; White Blood Count 5.6 K/mm3 (4.8-10.8)
[2025-04-09 13:21] LABS: Albumin Level 5.1 g/dl (3.5-5.0); Chloride 107 mmol/L (98-107); Potassium 4.2 mmoL/L (3.5-5.1); Sodium 141 mmol/L (136-145)
[2025-04-09] MEDS: ACETAMINOPHEN 500MG TAB 1000 MG PO (13:21)
[2025-04-09] MEDS: 0.9 % SODIUM CHLORIDE 1000ML 1,000 ML 999 ML IV (13:21)
[2025-04-09 13:24] LABS: Alanine Aminotransferase 15 U/L (12-78); Albumin/Globulin Ratio 1.4 (1.1-1.8); Alkaline Phosphatase 46 U/L (38-126); Anion Gap 15.2 mEq/L (5-15); Aspartate Amino Transferase 30 U/L (14-36); Bilirubin,Total 1.7 mg/dl (0.2-1.3); Blood Urea Nitrogen 8 mg/dl (7-17); Carbon Dioxide 23 mmol/L (22.0-30.0); Creatinine Clearance Estimated 121 mL/min (50-200); Creatinine,Serum 0.80 mg/dl (0.52-1.04); Estimated Glomerular Filt Rate 87 ml/min (>60); GFR (African American) 105 ML/MIN (>60); Globulin 3.6 g/dL (1.3-3.2); Total Protein,Serum 8.7 g/dl (6.3-8.2)
[2025-04-09 13:25] LABS: Calcium 10.0 mg/dl (8.4-10.2); Glucose 94 mg/dl (74-100)
[2025-04-09 13:45] VITALS: BP 127/78; PULSE 79; RESP 12; O2SAT 96
[2025-04-09 13:54] LABS: Troponin I < 0.01 ng/ml (0.00-0.034)
[2025-04-09 14:14] LABS: Hepatitis C Ab Qual. W/ RFX NEGATIVE (Negative)
[2025-04-09 14:24] VITALS: BP 127/78; PULSE 71; RESP 18; TEMP 36.9; O2SAT 100
== END 2025-04-09 14:30 | disposition home or self-care (01) ==
PROVIDERS: Nurse Practitioner; Emergency Provider Student in an Organized Health Care Education/Training Program; PCP Nurse Practitioner Family
DX: R07.89 Other chest pain (principal); R06.02 Shortness of breath; G90.A Postural orthostatic tachycardia syndrome [POTS]; E06.3 Autoimmune thyroiditis; E80.4 Gilbert syndrome
CPT/HCPCS: 80053; 84484; 85025; 86803; 87389; 93005; 96360; 99285; J7030

== ENCOUNTER 2025-05-01 11:23 | Outpatient (CLI) | payer MEDICAID, SELFPAY ==
--- OUTSIDE RECORDS SUMMARY | 2025-03-15 15:30 | XMS_ITS | Encounter Summary ---
Author Organization [facility] Address [address] [place] [address] Care Team Providers Care Ornament Stitcher Name Role Phone Angela Oleary RN Unavailable Unavailable Rey Wyatt MD Primary Care Provider [phone] Reason for Referral * Other Medical (Routine) - Pending Review Specialty Diagnoses / Procedures Referred By Mili joe Referred To Contact Neurology Diagnoses Syncope, unspecified syncope type Procedures Home-Based Ambulatory EEG Kendy Sanchez APRN [address] [place] [address] Phone: tel: fax: Referral ID Status Reason Start Date Expiration Date Visits Requested Visits Authorized [id number] Pending Review Specialty Services Required 03/15/2025 09/14/2026 1 1 Reason for Visit * Consultation (Routine) - Closed Specialty Diagnoses / Procedures Referred By Mili joe Referred To Contact Neurology Diagnoses Seizure-like activity (CMS/HCC) Román Joiner MD [address] [place] [address] Phone: tel: fax: [place] [facility] [address] [place] [address] Phone: tel: fax: Referral ID Status Reason Start Date Expiration Date V isits Requested Visits Authorized [id number] Closed Specialty Services Required 09/12/2024 03/14/2026 1 1 Encounter Details Date Type Department Care Team (Late st Contact Info) Description 03/15/2025 3:30 PM EDT Consult [place] [facility] [address] [place] [address] Kendy Sanchez, CONSUMER PRODUCT ADVISOR [address] [place] [address] Syncope, unspecified syncope type (Primary [...] How often do you attend chur or sikh services? Never 02/22/2024 Do you [...] Recorded Patient Health Questionnaire-2 Score 0 12/15/2024 [facility] - Occupational Stress Questionnaire Answer Date [...] a nursing home (including now)? No 02/09/2024 [place] Depression Scale Answer Date Recorded [place] Depression Scale Total 6 08/08/2024 The [...] drink first t casi in the morning (EYE-SATURATOR OPERATOR) to steady your nerves or to get rid of a hangover? 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 COORDINATION: no ataxia with [id number] testing GAIT: defer, came on wheelchair, feels [...] the date of the last seizure/spell per [place] state law Patient has been informed to call [...] Care Team (Late st Contact Info) Description 06/09/2025 7:30 AM EST Office Visit [facility] [address] [place] [address] Silverio Tam PA [address] [place] [address] 06/15/2025 12:30 PM EST Office Visit [facility] [address] [place] [address] Kendy Sanchez, CONSUMER PRODUCT ADVISOR [address] [place] [address] 06/19/2025 8:00 AM EST Office Visit [facility] [place] Maria Stein [address] [place] [address] Courtney Torres MD [address] [place] [address] 06/19/2025 12:30 PM EST Appointment [facility] [address] [place] [address] 06/21/2025 12:30 PM EST Appointment [facility] [address] [place] [address] Scheduled Orders Name Type Priority Associated Diagnoses [...] documented as of this encounter Care Teams Ornament Stitcher Relationship Specialty Start Date End Date Rey Wyatt MD [address] [place] [address] PCP - General 11/16/24 Angela Oleary, RN [facility] Registered Nurse Cardiology 02/17/24 documented as of this encounter
--- OUTSIDE RECORDS SUMMARY | 2025-04-04 16:00 | XMS_ITS | Encounter Summary ---
Author Organization [facility] Address [address] [id number] Care Team Providers Care Special Education Assistant Name Role Phone Angela Oleary RN Unavailable Unavailable Rey Wyatt MD Primary Care Provider [phone] Reason for Referral * Consultation (Routine) - Authorized Specialty Diagnoses / Procedures Referred By Mili joe Referred To Contact Diagnoses Epigastric pain Diarrhea, unspecified type Albania Aguero MD [address] [address] Phone: tel: fax: Referral ID Status Reason Start Date Expiration Date V isits Requested Visits Authorized [id number] Authorized 04/07/2025 10/07/2026 1 1 * Imaging (Routine) - Closed Specialty Diagnoses / Procedures Referred By Mili joe Referred To Contact Gastroenterology Diagnoses Epigastric pain Diarrhea, unspecified type Gastroesophageal reflux disease, unspecified whether esophagitis present Procedures Colonoscopy Albania Aguero MD [address] [address] Phone: tel: fax: Referral ID Status Reason Start Date Expiration Date V isits Requested Visits Authorized [id number] Closed Specialty Services Required 04/07/2025 10/07/2026 1 1 * Imaging (Routine) - Closed Specialty Diagnoses / Procedures Referred By Mili joe Referred To Contact Gastroenterology Diagnoses Epigastric pain Diarrhea, unspecified type Gastroesophageal reflux disease, unspecified whether esophagitis present Procedures EGD Albania Aguero MD [address] [facility] [address] [place] [address] Phone: tel: fax: Referral ID Status Reason Start Date Expiration Date V isits Requested Visits Authorized [id number] Closed Specialty Services Required 04/07/2025 10/07/2026 1 1 Reason for Visit * Reason Comments Weight loss Encounter Details Date Type Department Care Team (Late st Contact Info) Description 04/04/2025 4:00 PM EDT Office Visit [place] [facility] [address], [address] [place] [address] Donaldo Terry MD [address] [place] [address] Epigastric pain (Primary Dx); Diarrhea, [...] Recorded Patient Health Questionnaire-2 Score 0 12/15/2024 [facility] - Occupational Stress Questionnaire Answer [...] in a fdc (including now)? No 02/09/2024 [place] Depression Scale Answer Date Recorded [place] Depression Scale Total 6 08/08/2024 The thought [...] drink first t casi in the morning (EYE-PROGRESS WORKER) to steady your nerves or to [...] Laci Terry MD GI Fellow, PGY-5 Pager: [phone] Cosigned by Albania Aguero MD at 04/11/2025 [...] Description 06/09/2025 7:30 AM EST [facility] [address], [address] [place] [address] Silverio Tam PA [address] [place] [address] 06/15/2025 12:30 PM EST Office Visit [place] [facility] [address], 1[address] [place] [address] Kendy Sanchez, TRISTAN [address] [place] [address] 06/19/2025 8:00 AM EST Office Visit [facility] [place] [address], [address] [place] [address] Courtney Torres MD [address] [place] [address] 06/19/2025 12:30 PM EST Appointment [facility] [address] [place] [address] 06/21/2025 12:30 PM EST Appointment [facility] [address] [place] [address] Scheduled Referrals Name Type Priority Associated Diagnoses [...] Schwartz, Ingrid, MD Proceduralist Jean Padilla Endo Corporate Treasury Analyst Dana Brian Endo Nurse Pantera White MD [...] of bowel preparation was evaluated using the [place] Bowel Preparation Scale with scores of: right [...] medications. Staff Staff Role Sea Otero CRNA LINEN TECH Cony Mcelroy MD Proceduralist Jean Padilla Endo Corporate Treasury Analyst Dana Brian Endo Nurse Pantera White MD [...] documented as of this encounter Care Teams Special Education Assistant Relationship Specialty Start Date End Date Rey Wyatt MD [address] [place] [address] PCP - General 11/16/24 Angela Oleary, RN [facility] Registered Nurse Cardiology 02/17/24 documented as of this encounter
--- OUTSIDE RECORDS SUMMARY | 2025-04-12 12:02 | XMS_ITS | Encounter Summary ---
Author Organization [employer] ([place], [place], [place], [place]) Address [address] [place] [address] Care Team Providers Care Stars Specialist Name Role Phone EdmundoPadmini TRISTAN Primary Care Provider Reason for Referral * Cardiac Rehabilitation (Routine) - Closed Specialty Diagnoses / Procedures Referred By Contac t Referred To Contact Diagnoses Syncope Procedures Tilt table Provider, Not In System Leticia Nboles MD [address], [address] [address] Phone: tel: fax: Referral ID Status Reason Start Date Expiration Date Visits Re quested Visits Authorized [id number] Closed 09/19/2024 09/19/2025 1 1 Reason for Visit * Cardiac Rehabilitation (Routine) - Closed Specialty Diagnoses / Procedures Referred By Contac t Referred To Contact Diagnoses Syncope Procedures Tilt table Provider, Not In System Leticia Nobles MD [address], [facility] [address] [place] [address] Phone: tel: fax: Referral ID Status Reason Start Date Expiration Date Visits Re quested Visits Authorized [id number] Closed 09/19/2024 09/19/2025 1 1 Encounter Details Date Type Department Care Team (Latest Contact Info) Description 04/12/2025 12:02 PM EDT - 04/12/2025 11:59 PM EDT Hospital Encounter [facility] Procedure Lab [address] [place] [address] Syncope Discharge Disposition: Home or Self Care Social History Tobacco Use Types Packs/Day Years Used Date Smoking Tobacco: Former Cigarettes 1 10 Smokeless Tobacco: Never Tobacco Cessation:Counseling Given: Not Answered Comments:stopped 2 months ago, currently vapes Alcohol Use Standard Drinks/Week Comments Yes 0 (1 standard drink = 0.6 oz pur e alcohol) social Family and Community Support Answer Rodrigo e Recorded Help with Day to Day Activities Not on file 08/13/2023 Feeling Lonely or Isolated Not on file 08/13 Educational Attainment Answer Date Guerrero rded Speak language other than Mongolian at home Not on file 08/13/2023 Want help with school or training Not on file 08/13/2023 Substance Use Answer Date Recorded Used prescription meds for non-medical reasons N ot on file 08/13/2023 Used illegal drugs past 12 months Not on file 08/13/2023 Comments No Sex and Gender Information Value Date Recorded Sex Assigned at Not on file Legal Sex Female 5:10 PM CDT Gender Identity Not on file Sexual Orientation Not on file documented as of this encounter Last Filed Vital Signs Vital Sign Reading Time Taken Comments Blood Pressure 131/89 04/12/2025 1:47 PM EDT Pulse 136 04/12/2025 1:47 PM EDT Temperature 36.9 C (98.4 F) 04/12/2025 12:31 PM EDT Respiratory Rate 22 04/12/2025 12:31 PM EDT Oxygen Saturation 100% 04/12/2025 12:31 PM EDT Inhaled Oxygen Concentration - - Weight 72.1 kg (159 lb) 04/12/2025 12:21 PM EDT Height 167.6 cm (5' 6 ) 04/12/2025 12:21 PM EDT Body Mass Index 25.66 04/12/2025 12:21 PM EDT documented in this encounter Medications at Time of Discharge busPIRone (BUSPAR) 5 MG tablet Take 1 tablet (5 mg total) by mouth nightly at bedtime. 08/16/2024 famotidine (PEPCID) 20 MG tablet 08/16/2024 fluticasone propionate (FLONASE) 50 mcg/actuation nasal spray Administer 1 spray into each nostril daily. levothyroxine (SYNTHROID) 25 MCG tablet Take 1 tablet (25 mcg total) by mouth daily MOUTH EVERY. 02/10/2025 ondansetron (ZOFRAN-ODT) 4 MG disintegrating tablet Take by mouth. 05/19/2022 propranoloL (INDERAL) 20 MG tablet TAKE 1 AND 1/2 TABLET BY MOUTH THREE TIMES DAILY 11/16/2024 documented as of this encounter Plan of Treatment Not on file documented as of this encounter Procedures Procedure Name Priority Date/Time Associated Diagnosis Comments TILT TABLE Routine 04/12/2025 3:16 PM EDT Syncope documented in this encounter Results * Tilt table (04/12/2025 3:16 PM EDT) Anatomical Region Laterality Modality Vascular Ultraso und Narrative 04/12/2025 4:22 PM EDT TILT TABLE TESTING INDICATION Tachycardia REFERRING PROVIDER Courtney Torres MD PROCEDURE Standard tilt table testing. Nitroglycerin provocation was not performed. FINDINGS The systolic blood pressure remained relatively unchanged fluctuating between 113 mmHg to 138 mmHg without pattern. The heart rate increased from 76 bpm to as high as 136 bpm 5 minutes into the study followed by persistent sinus tachycardia between 108 to 135 bpm thereafter. IMPRESSION Positive tilt table study for postural orthostatic tachycardia. Negative study for vasodepressor or cardioinhibitory response. us Not In System Provider [facility] ORDER RUTH Final Result documented in this encounter Visit Diagnoses Diagnosis Syncope Syncope and collapse documented in this encounter Care Teams Stars Specialist Relationship Specialty Start Date End Date Padmini Wyatt, RESEARCH CONSULTANT [address] [phone] PCP - General Nurse Practitioner 04/12/25 documented as of this encounter
--- OUTSIDE RECORDS SUMMARY | 2025-04-18 07:27 | XMS_ITS | Encounter Summary ---
Author Organization Healthcare Address [address] [id number] Care Team Providers Care Limousine And Hearse Upholsterer Name Role Phone Angela Olaery RN Unavailable Unavailable Rey Wyatt MD Primary Care Provider [phone] Reason for Referral * Imaging (Routine) - Closed Specialty Diagnoses / Procedures Referred By Mili joe Referred To Contact Gastroenterology Diagnoses Epigastric pain Diarrhea, unspecified type Gastroesophageal reflux disease, unspecified whether esophagitis present Procedures Colonoscopy Albania Aguero MD [address] [address] Phone: tel: fax: Referral ID Status Reason Start Date Expiration Date V isits Requested Visits Authorized [id number] Closed Specialty Services Required 04/07/2025 10/07/2026 1 1 * Imaging (Routine) - Closed Specialty Diagnoses / Procedures Referred By Mili joe Referred To Contact Gastroenterology Diagnoses Epigastric pain Diarrhea, unspecified type Gastroesophageal reflux disease, unspecified whether esophagitis present Procedures EGD Albania Aguero MD [address] [facility] [address] [place] [address] Phone: tel: fax: Referral ID Status Reason Start Date Expiration Date V isits Requested Visits Authorized [id number] Closed Specialty Services Required 04/07/2025 10/07/2026 1 1 Reason for Visit * Imaging (Routine) - Closed Specialty Diagnoses / Procedures Referred By Contac t Referred To Contact Gastroenterology Diagnoses Epigastric pain Diarrhea, unspecified type Gastroesophageal reflux disease, unspecified whether esophagitis present Procedures Colonoscopy Albania Aguero MD [address] [facility] [address] [place] [address] Phone: tel: fax: Referral ID Status Reason Start Date Expiration Date V isits Requested Visits Authorized [id number] Closed Specialty Services Required 04/07/2025 10/07/2026 1 1 Encounter Details Date Type Department Care Team (Late st Contact Info) Description 04/18/2025 7:27 AM EDT - 04/18/2025 11:59 PM EDT Hospital Encounter [facility] [address] [place] [address] Cony Mcelroy MD [address] [facility] [address] [place] [address] Pantera White MD [address] [place] [address] Sea Otero CRNA [address] [place] [address] Dana Brian GS - Endoscopy [...] Recorded Patient Health Questionnaire-2 Score 0 12/15/2024 [place] of Occupat ional Health - Occupational Stress [...] in a alf (including now)? 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 USE UNTIL RESOLVED. Lancets (IdenIveTouch Delica Plus [id number]) [facility] [place] 04/14/2024 levothyroxine (Synthroid, Levoxyl) 25 MCG tablet [...] every 6 hours as needed. sodium chloride ([place] Nasal [place]) 0.65 % nasal spray Administer 1 spray [...] to purchase OTC Blood Glucose Monitoring Suppl (Butter Systemsuch Verio Reflect) w/Device kit busPIRone (BUSPAR) 5 [...] MINUTES THEN RINSE OFF.USE UNTIL RESOLVED. Lancets (IdenIveTouch Delica Plus [id number]) misc levothyroxine (SYNTHROID, LEVOXYL) 25 mcg, Daily [...] mg, Every 6 hours PRN sodium chloride ([place] Nasal [place]) 0.65 % nasal spray 1 spray, Each [...] min Stress: No Stress Concern Present (02/22/2024) [place] of Occupational Health - Occupational Stress Questionnaire Feeling of Stress : Not at all Social Connections: Moderately Isolated (02/22/2024) Social Connection and Isolation Panel Frequency of Communication with Friends and Family: More than three times a week Frequency of Social Gatherings with Friends and Family: Once a week Attends Catholic Services: Never Active Member of Clubs or [...] from the original note were not included. [id number] Endoscopy Unit: Caring for Yourself after an [...] will be available in the patient portal, [employer]. Or you can call the doctor who [...] Description 06/09/2025 7:30 AM EST Office Visit [facility] Medicine Specialties [address] [place] [address] Silverio Tam PA [address] [place] [address] 06/15/2025 12:30 PM EST Office Visit [facility] [address] [place] [address] Kendy Sanchez APRN [address] [place] [address] 06/19/2025 8:00 AM EST Office Visit [facility] [place] [facility] [address] [facility], [address] [place] [address] Courtney Torres MD [address] [place] [address] 06/19/2025 12:30 PM EST Appointment [facility] Neuro[facility]iology [address] [place] [address] 06/21/2025 12:30 PM EST Appointment [facility] [address] [place] [address] documented as of this encounter Goals Goal [...] Schwartz, Ingrid, MD Proceduralist Jean Padilla Endo Collet Driller Dana Brian Endo Nurse Pantera White MD [...] of bowel preparation was evaluated using the [place] Bowel Preparation Scale with scores of: right [...] medications. 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 BIOPSY Received in formalin labeled b iopsy, stomach , are 5 pink-reyes soft tissue fragments that range from 0.3-0.6 cm in greatest dimension. Entirely submitted in cassette A1. Cold Time: <1m Haritha B Pettealfonso 04/19/2025 3:22 PM EDT [facility] Note: A resident was involved in the service. I attest I examined the relevant preparations for the specimens and confirmed the diagnosis or interpretation. 04/19/2025 3:22 PM EDT [facility] Tissue Stomach structure / Unknown 04/18/2025 8:49 AM EDT 04/18/2025 9:18 AM EDT us Cony Carter MD LAB PATHOLOGY ORDERAB LES Final Result Performing Organization Address City/[facility] Co de Phone Number [facility] [address] [place] [address] * POCT , URINE (04/18/2025 7:53 AM EDT) POCT Test, Urine Negative Males and Non-pregnan t Females: Negative 04/18/2025 7:59 AM EDT [facility] Fine Craft Artist ID Melinda Allen 04/18/2025 7:59 AM EDT HEALTHCARE LAB Device ID [id number] 04/18/2025 7:59 AM EDT [facility] Urine Urine specimen obtained by clean catch procedure / Unknown 04/18/2025 7:53 AM EDT 04/18/2025 7:59 AM EDT us Cony Carter MD LAB POINT OF CARE TEST DOCKED DEVICE UNSOLICITED RESULTS Final Result Performing Organization Address City/[facility] Co de Phone Number [facility] [address] [place] [address] documented in this encounter Visit Diagnoses Diagnosis [...] documented as of this encounter Care Teams Limousine And Hearse Upholsterer Relationship Specialty Start Date End Date Rey Wyatt MD [address] [place] [address] PCP - General 11/16/24 Angela Oleary, RN [facility] Registered Nurse Cardiology 02/17/24 documented as of this encounter
--- OUTSIDE RECORDS SUMMARY | 2025-04-18 08:38 | XMS_ITS | Encounter Summary ---
Author Organization Healthcare Address [address] [address] Care Team Providers Care Movie Machine Operator Name Role Phone Angela Oleary RN Unavailable Unavailable Rey Wyatt MD Primary Care Provider [phone] Encounter Details Date Type Department Care Team (Late st Contact Info) Description 04/18/2025 8:38 AM EDT Anesthesia Event [facility] [address] [place] [phone] Pantera White MD [address] [place] [phone] Anesthesia Record Procedure Summary Procedure Name Responsible Anesthesiologist Anesthesia Start Time Anesthesia Stop Time EGD Pantera White MD 04/18/25 0838 5 0919 Events Date Time Event Comment 04/18/2025 0818 0838 An Start The patient was reevaluated immediately before sedation and remains eligible for anesthesia plan. 0838 An Start Data 0839 In Room 0842 An Induction The patient was reevaluated immediately before moderate or deep sedation use and before anesthesia induction. 0844 Proc Start 0907 Proc Fin 0910 Out of Room 0919 an stop data 0919 Handoff to Receiving I compl eted my handoff to the receiving clinician during which we: 1. Identified the patient 2. Identified the responsible provider 3. Reviewed the pertinent medical history 4. Discussed the surgical course 5. Reviewed intra-op anesthesia management and issues during anesthesia 6. Set expectations for post-procedure period 7. Allowed opportunity for questions and acknowledgement of understanding. 0919 An Stop Meds Name Total fentaNYL (Sublimaze) injection 50 mcg/mL 50 mcg lidocaine PF (Xylocaine-MPF) 2% 100 mg propofol (Diprivan) injection 10 mg/mL 5 00 mg lactated Ringer's infusion 350 mL * Agents Name O2 * Blood No blood administrations on file. Lines, Drains, and Airways Type Details Placement Removal Peripheral IV Placement Date: 03/28 10/18; Placement Time: 756; Catheter Size: 22 G; Orientation: Right; Location: Antecubital; Site Prep: Alcohol; Technique: Anatomical landmarks; Inserted by: SAV MANUEL RN; Insertion Attempts: 1; Patient Tolerance: Tolerated well; Removal Date: 04/18/25; Removal Time: 94304/18/25 075 by Magalys Sue RN 04/18/25943 by Jaime Dailey RN documented in this encounter Social History Tobacco Use Types Packs/Day Years [...] often do you attend [facility] or roman catholic services? Never 02/22/2024 Do [...] Recorded Patient Health Questionnaire-2 Score 0 12/15/2024 [facility] - Occupational Stress Questionnaire Answer [...] in a half-way (including now)? No 02/09/2024 [place] Depression Scale Answer Date Recorded [place] Depression Scale Total 6 08/08/2024 The thought [...] drink first t casi in the morning (EYE-FUEL INJECTION SERVICER) to steady your nerves or to get [...] as of this encounter Miscellaneous Notes * Anesthesia Postprocedure Evaluation - Sea Otero CRNA - 04/18/2025 9:19 AM EDT Patient: Francy Delarosa Anesthesia Type: general Vitals Value Taken Time BP 107/50 04/18/25 09:15 Temp 98/ 04/18/25 09:19 Pulse 85 04/18/25 09:18 Resp 21 04/18/25 09:18 SpO2 100 % 04/18/25 09:18 Vitals shown include unfiled device data. Anesthesia Post Evaluation Patient location during evaluation: PACU Patient participation: complete - patient cannot participate Level of consciousness: sedated Pain management: adequate (pain score 0-3) Airway patency: natural airway Cardiovascular status: acceptable Respiratory status: acceptable Hydration status: euvolemic No notable events documented. * Anesthesia Preprocedure Evaluation - Pantera White MD - 04/18/2025 8:36 AM EDT Images from the original note were not included. Anesthesiologist: Pantera Wihte MD WELLNESS CONSULTANT: Sea Otero CRNA Patient: Francy Delarosa is a 24 y.o. female with body mass index is 25.19 kg/m??. who presents with No Principal Problem: There is no principal problem currently on the Problem List. Please update the ProblemList and refresh., now for Procedure Information Date/Time: 04/18/25 0840 Scheduled providers: Cony Mcelroy MD; Pantera White MD; Sea Otero CRNA; Dana Brian Procedures: EGD COLONOSCOPY Location: [facility] Endoscopy 24 yo F with a hx of POTS, anxiety, and GERD presents for EGD and colonoscopy. Relevant Problems Cardio (+) Hypertension affecting GI (+) Gastroesophageal reflux disease ALLERGIES Allergies[1] NPO STATUS Date of Last Liquid: 04/18/25 Time of Last Liquid: 199 Date of Last Solid: 04/16/25 Time of Last Solid: 1999 Last Intake Type: Clear fluids Past Medical History[2] AIRWAY HISTORY Airway Detailed Review Displaying the 20 most recent records Date Difficult Airway Blade Size ETT Size C-L Class Final Type Intubation Method 07/16/24 No 07/16/24 No 07/05/24 No 07/04/24 No 06/28/24 No 08/04/22 - - - - - - MEDICATIONS Outpatient Current Outpatient Medications Medication Instructions bisacodyl (Bisacodyl EC) 5 MG EC tablet Take all 4 tablets at 4 PM on day before colonoscopy IF INSURANCE DOES NOT COVER, please inform pt to purchase OTC Blood Glucose Monitoring Suppl (Nomorerack.comTouch Verio Reflect) w/Device kit busPIRone (BUSPAR) 5 [...] MINUTES THEN RINSE OFF.USE UNTIL RESOLVED. Lancets ([facility] Delica Plus [id number]) misc levothyroxine (SYNTHROID, LEVOXYL) 25 mcg, Daily methIMAzole (TAPAZOLE) 10 mg, Oral, Daily ondansetron (ZOFRAN) 4 mg, Oral, Every 8 hours PRN ondansetron ODT (ZOFRAN-ODT) 8 mg, Oral, Every 8 hours PRN [facility] Verio test strip 1 each, As needed [...] mg, Every 6 hours PRN sodium chloride ([place] Nasal [place]) 0.65 % nasal spray 1 spray, Each Nostril, As needed Tylenol 650 mg, Oral, Every 6 hours PRN Ventolin HFA 108 (90 Base) MCG/ACT inhaler Scheduled Current Scheduled Medications[3] PRNs Current PRN Medications[4] SURGICAL HX: Surgical History[5] SOCIAL HX: Social History[6] OBJECTIVE DATA LABS Lab Results Component Value Date WBC 5.38 12/15/2024 HGB 12.6 12/15/2024 HCT 39.7 12/15/2024 MCV 83 12/15/2024 PLT 311 12/15/2024 Lab Results Component Value Date CALCIUM 9.4 12/15/2024 BUN 8 12/15/2024 CREATININE 0.60 12/15/2024 BCR 13 12/15/2024 NA 140 12/15/2024 K 4.1 12/15/2024 CL 105 12/15/2024 CO2 21 (L) 12/15/2024 Type and Screen No results found for: ABO No results found for: HGBA1C No results found for: PGLU , GLUCOSE ABG No results found for: PHART , ZJZ3LWJ , PO2ART , SO2ART , BEART , GOL7NZS , HCTART , SODIUMART , POTASSIUMART , POCTCL , POCGLU , IONCALART , LACTATE Lab Results Component Value Date PH 7.31 07/16/2024 PH 7.40 07/16/2024 PCO2 46 07/16/2024 PCO2 33 07/16/2024 PO2 17 07/16/2024 PO2 31 07/16/2024 HCTSYR 37.4 11/20/2024 KSYR 4.0 11/20/2024 CLSYR 110 (H) 11/20/2024 GLUSYR 98 11/20/2024 CAION 4.8 11/20/2024 ECHO No echocardiogram results found for the past 12 months PFTs FEV1 PRE (L) Date/Time Value 03/01/2025 1119 3.42 QOH2DRX (L) Date/Time Value 03/01/2025 1119 4.85 (A) BP Readings from Last 5 Encounters: 04/18/25 138/83 04/04/25 107/72 03/15/25 112/80 02/16/25 (!) 145/92 01/17/25 105/64 Physical Exam Airway Mallampati: II Mouth opening: normal TM distance: >3 FB Neck ROM: full Cardiovascular Rhythm: regular Rate: normal Dental - normal exam Pulmonary Breath sounds clear to auscultation Neurological Oriented: normal to time, normal to place and normal to person and oriented to person, place and time Skin Musculoskeletal Extremities Anesthesia Plan ASA 2 Plan was reviewed with: WELLNESS CONSULTANT Anesthesia technique(s) discussed with the patient/family: general Anesthesia plan agreed upon was: general Anesthetic plan and risks discussed with patient. Anesthesia Evaluation [1] Allergies Allergen Reactions Amoxicillin-Pot Clavulanate Other [...] oral intake, Syncope Urinary tract infection [3] sodium chloride, 250 mL, Intravenous, Once [4] PRN medications: ondansetron [5] Past Surgical History: Procedure Laterality Date CHOLECYSTECTOMY 07/2023 DILATION AND CURETTAGE OF UTERUS HAND SURGERY 07/2022 TONSILLECTOMY 2001 [6] Social History Tobacco Use Smoking status: Former [...] Topics Alcohol use: Never Drug use: Never documented in this encounter Plan of Treatment Upcoming Encounters Date Type Department Care Team (Late st Contact Info) Description 06/09/2025 7:30 AM EST Office Visit [facility] Medicine Specialties [address] [place] [address] Silverio Tam PA [address] [place] [address] 06/15/2025 12:30 PM EST Office Visit [place] [facility] [address], [address] [place] [address] CarlitaKendy winters, SENIOR RD ENGINEER [address] [place] [address] 06/19/2025 8:00 AM EST Office Visit [facility] [place] [address], [address] [place] [address] Courtnye Torres MD [address] [place] [address] 06/19/2025 12:30 PM EST Appointment [facility] [address] [place] [address] 06/21/2025 12:30 PM EST Appointment [facility] [address] [place] [address] documented as of this encounter Goals Goal Patient Goal Type Associated Problems Recent Progress Patient-Stated? Author Delayed Delivery Care Plan CPM S22 PP LABOR (OBSTETRICS) No Open Scheduling, Background documented as of this encounter Visit Diagnoses Not on filedocumented in this encounter Administered Medications Inactive Administered Medications - up to 3 most recent administrations Medication Order MAR Action Action Date Dose Rate Site fentaNYL (Sublimaze) injection Intravenous, As needed, Starting on Thu04/18/25 at 0842, Until Thu04/18/25 at 09, Routine, Anesthesia Intraprocedure Given 04/18/2025 8:42 AM EDT 50 mcg lactated Ringer's infusion Intravenous, Continuous PRN, Starting on Thu04/18/25 at 0842, Until Thu04/18/25 at 09, Routine New Bag 04/18/2025 8:42 AM EDT lidocaine PF (Xylocaine) 2 % injection Intravenous, As needed, Starting on Thu04/18/25 at 0842, Until Thu04/18/25 at 09, Routine, Anesthesia Intraprocedure Given 04/18/2025 8:42 AM EDT 100 mg propofol (Diprivan) injection Intravenous, As needed, Starting on Thu04/18/25 at 0842, Until Thu04/18/25 at 0919, Routine, Anesthesia Intraprocedure Given 04/18/2025 9:04 AM EDT 50 mg Given 04/18/2025 9:00 AM EDT 100 mg Given 04/18/2025 8:56 AM EDT 100 mg documented in this encounter Additional Health [...] documented as of this encounter Care Teams Movie Machine Operator Relationship Specialty Start Date End Date Rey Wyatt MD [address] [place] [address] PCP - General 11/16/24 Angela Oleary, RN [facility] Registered Nurse Cardiology 02/17/24 documented as of this encounter
[2025-05-01 18:19] LABS: Hematocrit 42.8 % (37.0-47.0); Hemoglobin 13.4 g/dL (12.2-16.2); Immature Granulocytes % 0.2 %; Mean Corpuscular HGB Conc 31.3 g/dL (31.8-35.4); Mean Corpuscular Hemoglobin 27.0 pg (27.0-31.2); Mean Corpuscular Volume 86.1 fl (81-99); Nucleated Red Blood Cells % 0 %; Platelet Count 198 K/mm3 (142-424); Red Blood Count 4.97 M/mm3 (4.20-5.40); Red Cell Distribution Width-SD 45.0 fL; White Blood Count 4.8 K/mm3 (4.8-10.8)
[2025-05-01 19:05] LABS: Iron 79 ug/dL (37-170)
[2025-05-01 19:15] LABS: Total Iron Binding Capacity 389 ug/dL (265-497)
[2025-05-01 19:19] LABS: Free T4 (Free Thyroxine) 0.95 ng/dl (0.78-2.19)
[2025-05-01 19:20] LABS: T4 (Thyroxine) 8.8 ug/dl (5.53-11.0)
[2025-05-01 19:34] LABS: Thyroid Stimulating Hormone 2.77 uIU/mL (0.465-4.68)
[2025-05-01 19:38] LABS: Ferritin 6.97 ng/ml (6.24-137)
--- OUTSIDE RECORDS SUMMARY | 2025-05-02 02:00 | XMS_ITS | Encounter Summary ---
Author Organization Healthcare Address [address] [place] [address] Care Team Providers Care Wind Turbine Blade Repair Technician Name Role Phone Molly Louis MD Primary Care Provider [phone] Angela Oleary RN Unavailable Unavailable Rey Wyatt MD Primary Care Provider [phone] Reason for Visit * Reason Onset Date Comments Med Refill 03/03/2024 Encounter Details Date Type Department Care Team ([facility] Contact Info) Description 03/03/2024 Refill Medical Office Building Obstetrics and Gynecology [address], [address] [place] [address] HoustonEarle Villagomez MD [address] [place] [address] Supervision of high risk in [...] Recorded Patient Health Questionnaire-2 Score 0 02/17/2024 [facility] [...] a skilled nursing (including now)? No 02/09/2024 [place] Depression Scale Answer Date Recorded [place] Depression Scale Total 8 02/22/2024 The thought [...] requesting to speak with a nurse- see [employer] [facility] for details about symptoms she is experiencing. * Telephone Encounter - Luh Keenan RN - 03/04/2024 1:56 PM EDT Patient has refills on file. Needs to call pharmacy. Luh Keenan, RN documented in this encounter Plan of Treatment Upcoming Encounters Date Type Department Care Team (Late st Contact Info) Description 06/09/2025 7:30 AM EST Office Visit [facility] Medicine Specialties [address] [place] [address] Silverio Tam PA [address] [place] [address] 06/15/2025 12:30 PM EST Office Visit [facility] [address] [place] [address] Kendy Sanchez APRN [address] [place] [address] 06/19/2025 8:00 AM EST Office Visit [facility] [place] [address], [address] [place] [address] Courtney Torres MD [address] [place] [address] 06/19/2025 12:30 PM EST Appointment [facility] [address] [place] [address] 06/21/2025 12:30 PM EST Appointment [facility] [address] [place] [address] documented as of this encounter Goals Goal [...] documented as of this encounter Care Teams Wind Turbine Blade Repair Technician Relationship Specialty Start Date End Date Molly Louis MD [address] [place] [address] PCP - General Family Medicine 02/09/24 11/15/24 eRy Wyatt MD [address] [place] [address] PCP - General 11/16/24 Angela Oleary, RN [facility] Registered Nurse Cardiology 02/17/24 documented as of this encounter
--- OUTSIDE RECORDS SUMMARY | 2025-05-02 02:00 | XMS_ITS | Encounter Summary ---
Author Organization Healthcare Address [address] [place] [address] Care Team Providers Care Utilization Management Nurse Name Role Phone Angela Oleary RN Unavailable Unavailable Rey Wyatt MD Primary Care Provider [phone] Encounter Details Date Type Department Care Team [...] in a fpc (including now)? No 02/09/2024 [place] Depression Scale Answer Date Recorded [place] Depression Scale Total 6 08/08/2024 The thought [...] drink first t casi in the morning (EYE-USER SUPPORT ANALYST SUPERVISOR) to steady your nerves or to [...] Description 06/09/2025 7:30 AM EST Office Visit [facility] [address], [address] [place] [address] Silverio Tam PA [address] [place] [address] 06/15/2025 12:30 PM EST Office Visit [place] [facility] [address] [place] [address] Kendy Sanchez, BUDGET CLERK [address] [place] [address] 06/19/2025 8:00 AM EST Office Visit [facility] [place] [address], [address] [place] [address] Courtney Torres MD [address] [place] [address] 06/19/2025 12:30 PM EST Appointment [facility] [address] [place] [address] 06/21/2025 12:30 PM EST Appointment [facility] [address] [place] [address] documented as of this encounter Goals Goal [...] documented as of this encounter Care Teams Utilization Management Nurse Relationship Specialty Start Date End Date Rey Wyatt MD [address] [place], [place] [id number] PCP - General 11/16/24 Angela Oleary, RN [facility] Registered Nurse Cardiology 02/17/24 documented as of this encounter
--- OUTSIDE RECORDS SUMMARY | 2025-05-02 02:00 | XMS_ITS | Encounter Summary ---
Author Organization Healthcare Address [address] [place] [address] Care Team Providers Care Aviation Tactical Readiness Officer Name Role Phone Angela Oleary RN Unavailable Unavailable Rey Wyatt MD Primary Care Provider [phone] Encounter Details Date Type Department Care Team ([facility] st Contact Info) Description 02/16/2025 Telephone [facility] [place] [address] [facility], [address] [place] [address] Social History Tobacco Use Types [...] 0 12/15/2024 [employer] [facility] ional [facility] - Occupational Stress [...] a senior care (including now)? No 02/09/2024 [place] Depression Scale Answer Date Recorded [place] Depression Scale Total 6 08/08/2024 The thought [...] drink first t casi in the morning (EYE-DRAFTER ELECTROMECHANICAL) to steady your nerves or to get [...] encounter Miscellaneous Notes * Telephone Encounter - MarthaParis Malena - 02/16/2025 3:52 PM EDT Clinical Concern/Question [...] any apts in Apr. Best contact number: [phone] (home) Optimal time of day to reach [...] Description 06/09/2025 7:30 AM EST Office Visit [facility] [address], [address] [place] [address] Silverio Tam PA [address] [place] [address] 06/15/2025 12:30 PM EST Office Visit [facility] [address], [address] [place] [address] Kendy Sanchez APRN [address] [place] [address] 06/19/2025 8:00 AM EST Office Visit [facility] [place] [address], [address] [place] [address] Courtney Torres MD [address] [place] [address] 06/19/2025 12:30 PM EST Appointment [facility] [address] [place] [address] 06/21/2025 12:30 PM EST Appointment [facility] [address] [place] [address] documented as of this encounter Goals Goal [...] documented as of this encounter Care Teams Aviation Tactical Readiness Officer Relationship Specialty Start Date End Date Rey Wyatt MD [address] [facility] [address] [place] [address] PCP - General 11/16/24 Angela Oleary, RN [facility] Registered Nurse Cardiology 02/17/24 documented as of this encounter
--- OUTSIDE RECORDS SUMMARY | 2025-05-02 02:00 | XMS_ITS | Encounter Summary ---
Author Organization [employer] ([place], [place], [place], [place]) Address [address] [place] [address] Care Team Providers Care Passenger Car Upholsterer Apprentice Name Role Phone Padmini Wyatt APRN Primary Care Provider [phone] Encounter Details Date Type Department Care Team (Latest Contact Info) Description 04/12/2025 Travel Social History Tobacco Use Types Packs/Day Years Used Date Smoking Tobacco: Former Cigarettes 1 10 Smokeless Tobacco: Never Comments:stopped [...] Date Guerrero rded Speak language other than Namibian at home Not on file 08/13/2023 Want [...] on filedocumented in this encounter Care Teams Passenger Car Upholsterer Apprentice Relationship Specialty Start Date End Date Padmini Wyatt APRN [address] [place] [address] PCP - General Nurse Practitioner 04/12/25 documented as of this encounter
--- OUTSIDE RECORDS SUMMARY | 2025-05-02 02:00 | XMS_ITS | Referral Summary ---
Author Organization [employer] ([place], [place], [place], [place]) Address [address] [place] [address] Care Team Providers Care Rewinder Operator Name Role Phone Padmini Wyatt APRN Primary Care Provider [phone] Encounters Date Type Department Care Team Description 04/12/2025 Travel 04/12/2025 12:02 PM EDT - 04/12/2025 11:59 PM EDT Hospital Encounter [facility] Procedure Lab 1 [place] [address] Syncope Discharge Disposition: Home or Self Care from Last 3 Months Allergies Active Allergy Reactions Criticality Noted Date Comments Amoxicillin-Pot Clavulanate Swelling High 06/24/20 22 Penicillin Swelling High 06/24/2022 Medications ondansetron (ZOFRAN-ODT) 4 MG disintegrating tablet Take by mouth. 2 Active propranoloL (INDERAL) 20 MG tablet TAKE 1 AND 1/2 TABLET BY MOUTH THREE TIMES DAILY 5 Active levothyroxine (SYNTHROID) 25 MCG tablet Take 1 tablet (25 mcg total) by mouth daily MOUTH EVERY. 5 Active busPIRone (BUSPAR) 5 MG tablet Take 1 tablet (5 mg total) by mouth nightly at bedtime. 5 Active famotidine (PEPCID) 20 MG tablet 5 Active fluticasone propionate (FLONASE) 50 mcg/actuation nasal spray Administer 1 spray into each nostril daily. Active Active Problems Problem Noted Date Diagnosed [...] Mass Index 25.66 04/12/2025 12:21 PM EDT Plan of Treatment Not on file Medical Devices Implanted Type Area Wind Farm Support Specialist Device Identifier Shelf Expiration Date Model / Serial / Lot K-Wire [id number] - [id number] Implanted:Qty: 1 on 08/04/2022 by Rex Rene MD at [facility] IMPLANTS Right: Hand ANNIA:[employer] [id number] / / Wire K-Wire 1.6mm [id number] - [id number] Implanted:Qty: 1 on 08/04/2022 by Rex Rene MD at [facility] IMPLANTS Right: Hand BUCK MED GRP:BUCK MED TECH / / Procedures Procedure Name Priority Date/Time Associated Diagnosis Comments TILT TABLE Routine 04/12/2025 3:16 PM EDT Syncope from Last 3 Months Results * Tilt table (04/12/2025 3:16 PM [...] CV CARDIAC SERVICES ORDER RUTH Final Result from Last 3 Months Insurance MEDICAID OF [place] Advance Directives For more information, please contact: [phone] * Full Code (Latest Code Status on File) Date Activated Date Inactivated Comments 08/04/2022 6:03 AM 08/04/2022 11:35 AM Care Teams Rewinder Operator Relationship Specialty Start Date End Date Padmini Wyatt, DISPUTE COORDINATOR [address] [address] PCP - General Nurse Practitioner 04/12/25
--- OUTSIDE RECORDS SUMMARY | 2025-05-02 02:00 | XMS_ITS | Encounter Summary ---
Author Organization Healthcare Address [address] [place] [address] Care Team Providers Care Housekeeping/Laundry Name Role Phone Molly [place] MD Primary Care Provider [phone] Angela Oleary RN Unavailable Unavailable Rey Wyatt MD Primary Care Provider [phone] Reason for Visit * Reason Onset Date Comments Med Refill 07/19/2024 Encounter Details Date Type Department Care Team (Late st Contact Info) Description 07/19/2024 Refill [facility] [address] [facility], [address] [place] [address] Paris Marion MD [address] [place] [address] Social History Tobacco Use Types Packs/Day Years [...] How often do you attend chur or holiness services? Never 02/22/2024 Do you belong to any clubs o r organizations such as taoist groups, unions, fraternal or athletic groups, or [...] Recorded Patient Health Questionnaire-2 Score 0 06/22/2024 [facility] - Occupational Stress Questionnaire Answer [...] in a mcc (including now)? No 02/09/2024 [place] Depression Scale Answer Date Recorded [place] Depression Scale Total 8 02/22/2024 The thought [...] drink first t casi in the morning (EYE-STRIP PICKER) to steady your nerves or to get [...] Description 06/09/2025 7:30 AM EST Office Visit [facility] Medicine Specialties [address], [address] [place] [address] Silverio Tam PA [address] [place] [address] 06/15/2025 12:30 PM EST Office Visit [facility] [address], [address] [place] [address] Kendy Sanchez APRN [address] [place] [address] 06/19/2025 8:00 AM EST Office Visit [facility] [place] [address], [address] [place] [address] Courtney Torres MD [address] [place] [address] 06/19/2025 12:30 PM EST Appointment [facility] [address] [place] [address] 06/21/2025 12:30 PM EST Appointment [facility] [address] [place] [address] documented as of this encounter Goals Goal [...] documented as of this encounter Care Teams Housekeeping/Laundry Relationship Specialty Start Date End Date Molly Louis MD [address] [place], [place] [id number] PCP - General Family Medicine 02/09/24 11/15/24 Rey Wyatt MD [address] [place] [address] PCP - General 11/16/24 Angela Oleary, RN [facility] Registered Nurse Cardiology 02/17/24 documented as of this encounter
--- OUTSIDE RECORDS SUMMARY | 2025-05-02 02:00 | XMS_ITS | Encounter Summary ---
Author Organization Healthcare Address [address] [place] [id number] Care Team Providers Care Child Welfare Caseworker Name Role Phone Molly Louis MD Primary Care Provider [phone] Angela Oleary RN Unavailable Unavailable Rey Wyatt MD Primary Care Provider [phone] Reason for Visit * Reason Onset Date Comments Med Refill 03/03/2024 Encounter Details Date Type Department Care Team (Late st Contact Info) Description 03/03/2024 Refill [facility] [address] [place] [address] Paris Marion MD [address] [place] [address] Social History Tobacco Use Types Packs/Day Years [...] often do you attend chur ch or temple services? Never 02/22/2024 Do you belong to [...] Recorded Patient Health Questionnaire-2 Score 0 02/17/2024 [facility] - [...] health care facility (including now)? No 02/09/2024 [place] Depression Scale Answer Date Recorded [place] Depression Scale Total 8 02/22/2024 The thought [...] [facility] [address] [place] [address] Silverio Tam PA [address] [place] [address] 06/15/2025 12:30 PM EST Office Visit [facility] [address] [place] [address] Kendy Sanchez, TRISTAN [address] [place] [address] 06/19/2025 8:00 AM EST Office Visit [facility] [place] [address], [address] [place] [address] Courtney Torres MD [address] [place] [address] 06/19/2025 12:30 PM EST Appointment [facility] [address] [place] [address] 06/21/2025 12:30 PM EST Appointment [facility] [address] [place] [address] documented as of this encounter [...] documented as of this encounter Care Teams Child Welfare Caseworker Relationship Specialty Start Date End Date Molly Louis MD [address] [place] [address] PCP - General Family Medicine 02/09/24 11/15/24 Rey Wyatt MD [address] [place] [address] PCP - General 11/16/24 Angela Oleary RN [facility] Registered Nurse Cardiology 02/17/24 documented as of this encounter
--- OUTSIDE RECORDS SUMMARY | 2025-05-02 02:00 | XMS_ITS | Clinical Summary ---
Author Organization [employer] ([place], [place], [place], [place]) Address [address] [place] [address] Care Team Providers Care Licensed Insurance Sales Agent Name Role Phone Padmini Wyatt COTA Primary Care Provider Allergies Active Allergy Reactions [...] fifth metacarpal bone of right hand 08/01/2022 Encounters Date Type Department Care Team Description 04/12/2025 12:02 PM EDT - 04/12/2025 11:59 PM EDT Hospital Encounter [facility] Procedure Lab 1 [place] [address] Syncope Discharge Disposition: Home or Self Care 04/12/2025 Travel from Last 3 Months Family History [...] Date Guerrero rded Speak language other than Tristanian at home Not on file 08/13/2023 Want [...] 04/12/2025 12:21 PM EDT Plan of Treatment Health Maintenance Due Date Last Done Comments HIV Screening 2013 Hepatitis C Screening 2016 Pap Smear 2019 DTAP/TDAP/TD VACCINES (3 - T d or Tdap) 02/21/2020 02/20/2010, 04/26/2002 COVID-19 VACCINE (2 - 2024-2 6 season) 2025 02/21/2021 Influenza Vaccine (#1) 2025 Tobacco Cessation Counseling and Screening (12+) 04/12/2026 04/12/2025 Pneumococcal Vaccine: 0-49 Years Aged Out No longer eligible b ased on patient's age to complete this topic Medical Devices Implanted Type Area Speeder Frame Tender Device Identifier Shelf Expiration Date Model / Serial / Lot K-Wire [id number] - [id number] Implanted:Qty: 1 on 08/04/2022 by Rex Rene MD at [facility] IMPLANTS Right: Hand ANNIA:[employer] [id number] / / Wire K-Wire 1.6mm [id number] - [id number] Implanted:Qty: 1 on 08/04/2022 by Rex Rene MD at [facility] IMPLANTS Right: Hand [employer] MED GRP:VIRxSYS TECH / / Procedures Procedure Name Priority [...] Final Result from Last 3 Months Insurance [id number] (Home) [address] [place] [address] [place] [id number] Advance Directives For more information, please contact: [phone] * Full Code (Latest Code Status on File) Date Activated Date Inactivated Comments 08/04/2022 6:03 AM 08/04/2022 11:35 AM Care Teams Licensed Insurance Sales Agent Relationship Specialty Start Date End Date Padmini Wyatt APRN [address] [address] PCP - General Nurse Practitioner 04/12/25
--- OUTSIDE RECORDS SUMMARY | 2025-05-02 02:00 | XMS_ITS | Encounter Summary ---
Author Organization Healthcare Address [address] [place] [id number] Care Team Providers Care Professor Of Nursing Name Role Phone Angela Oleary RN Unavailable Unavailable Rey Wyatt MD Primary Care Provider [phone] Encounter Details Date Type Department Care Team (Late st Contact Info) Description 01/18/2025 Results Follow-Up [facility] Endocrinology [address] [place] [address] MunugotiHugohitha [address] [place] [id number] Social History Tobacco Use Types Packs/Day Years [...] 0 12/15/2024 [facility] ional [facility] - Occupational Stress Questionnaire Answer [...] in a jail (including now)? No 02/09/2024 [place] Depression Scale Answer Date Recorded [place] Depression Scale Total 6 08/08/2024 The thought [...] first t casi in the morning (EYE-TRAFFIC CONTROL SUPERVISOR) to steady your nerves or to [...] Description 06/09/2025 7:30 AM EST Office Visit [facility] [address] [place] [address] Silverio Tam PA [address] [place] [address] 06/15/2025 12:30 PM EST Office Visit [facility] [address], [address] [place] [address] Kendy Sanchez APRN [address] [place] [address] 06/19/2025 8:00 AM EST Office Visit [facility] [place] [address], [address] [place] [address] Courtney Torres MD [address] [place] [address] 06/19/2025 12:30 PM EST Appointment [facility] [address] [place] [address] 06/21/2025 12:30 PM EST Appointment [facility] [address] [place] [address] Scheduled Orders Name Type Priority Associated Diagnoses [...] documented as of this encounter Care Teams Professor Of Nursing Relationship Specialty Start Date End Date Rey Wyatt MD [address] [facility] [address] [place] [address] PCP - General 11/16/24 Angela Oleary, RN [facility] Registered Nurse Cardiology 02/17/24 documented as of this encounter
--- OUTSIDE RECORDS SUMMARY | 2025-05-02 02:00 | XMS_ITS | Encounter Summary ---
Author Organization Healthcare Address [address] [place] [address] Care Team Providers Care Web Application Developer Name Role Phone Pcp, No Primary Care Provider UnavailMolly Newman MD Primary Care Provider [phone] Angela Oleary RN Unavailable Unavailable Rey Wyatt MD Primary Care Provider [phone] Encounter Details Date Type Department Care Team (Late Contact Info) Description 01/22/2024 Orders Only External Location [address] [place] [address] Provider, External Social History Tobacco Use Types [...] Department Care Team (Late Contact Info) Description 06/09/2025 7:30 AM EST Office Visit [facility] Medicine Specialties [address], [address] [place] [address] Silverio Tam PA [address] [place] [address] 06/15/2025 12:30 PM EST Office Visit [facility] [address] [place] [address] Laura Kendy, RADIOTELEPHONE OPERATOR [address] [place] [address] 06/19/2025 8:00 AM EST Office Visit [facility] [place] [address], [address] [place] [address] Courtney Torres MD [address] [place] [address] 06/19/2025 12:30 PM EST Appointment [facility] [address] [place] [address] 06/21/2025 12:30 PM EST Appointment [facility] [address] [place] [address] documented as of this encounter Procedures Procedure [...] documented as of this encounter Care Teams Web Application Developer Relationship Specialty Start Date End Date Pcp, No [address] [place] [address] PCP - General Family Medicine 01/22/24 02/08/24 Molly Louis MD [address] [place] [address] PCP - General Family Medicine 02/09/24 11/15/24 Rey Wyatt MD [address] [place] [address] [place], [place] [id number] PCP - General 11/16/24 Angela Oleary, RN [facility] Registered Nurse Cardiology 02/17/24 documented as of this encounter
--- OUTSIDE RECORDS SUMMARY | 2025-05-02 02:00 | XMS_ITS | Clinical Summary ---
Author Organization [facility] Address [address] [place] [address] Care Team Providers Care Clinical Applications Specialist Name Role Phone Angela Oleary RN Unavailable Unavailable Rey Wyatt MD Primary Care Provider [phone] Allergies Active Allergy Reactions Criticality Noted Date [...] (one) time each day. 30 packet 1 024 Active sodium chloride ([place] Nasal [place]) 0.65 % nasal spray Administer 1 spray into each nostril if needed for congestion. 30 mL 12 024 Active Blood Glucose Monitoring Suppl (OneTouch Verio Reflect) w/Device kit Active OneTouch Verio test strip 1 each by Other route as needed. 024 Active Lancets (OneTouch Delica Plus [id number]) misc Active ibuprofen 600 MG tablet Take 1 tablet (600 mg) by mouth every 6 (six) hours if needed for mild pain. 30 tablet 1 12/23/2 024 Active senna-docusate (Codi-Colace) 8.6-50 MG tablet Take 1 tablet by mouth 1 (one) time each day. 30 tablet 1 024 Active acetaminophen (Tylenol) 325 MG capsule Take 2 capsules (650 mg) by mouth every 6 (six) hours if needed for mild pain. 30 capsule 1 024 Active ondansetron (Zofran) 4 MG tablet Take 1 tablet (4 mg) by mouth every 8 (eight) hours if needed for nausea or vomiting. 3 tablet 5 024 Active busPIRone (Buspar) 5 MG tablet Take 1 tablet (5 mg) by mouth every night. Takes at 8PM 30 tablet Active famotidine (Pepcid) 20 MG tablet Take 1 tablet (20 mg) by mouth 2 (two) times a day. 60 tablet 11 Active cholecalciferol (Vitamin D-3) 50 MCG (2000 UT) capsule Active Ventolin HFA 108 (90 Base) MCG/ACT inhaler Active methIMAzole (Tapazole) 10 MG tablet Take 1 tablet by mouth daily. 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 90 tablet 3 Active fludrocortisone (Florinef) 0.1 MG tabletIndications :Pott's disease Take 1 tablet by mouth daily. 30 tablet 3 025 Active fluticasone (Flonase) 50 MCG/ACT nasal spray Administer 1 spray into each nostril daily. Active ondansetron ODT (Zofran-ODT) 4 MG disintegrating tablet Dissolve 2 tablets on the tongue every 8 hours as needed for nausea or vomiting. 20 tablet 5 Active levothyroxine (Synthroid, Levoxyl) 25 MCG tablet Take 1 tablet by mouth daily. Active simethicone (Mylicon) 80 MG chewable tablet [...] Colonoscopy prep protocol 4000 mL 025 Active cefdinir (Omnicef) 300 MG capsule [...] Hypokalemia 04/12/2024 Left ear impacted cerumen 04/12/2024 Postural orthostatic tachycardia syndrome (POTS) 02/18/2024 Pre-syncope 02/08/2024 14 weeks gestation of 02/08/2024 Abnormal reflex 10/16/2023 Lumbago with sciatica, right side 09/22/2023 Nausea 05/19/2023 Genital herpes simplex 02/04/2023 Constipation 01/29/2023 Mixed stress and urge urinary incontinence 12/10 Gallstone 09/18/2022 Gilbert's syndrome 09/18/2022 Depression 08/04/2022 Anxiety 08/04/2022 Gastroesophageal reflux disease 08/04/2022 Resolved Problems Problem Noted Date Diagnosed Date Resolved Date Severe malnutrition 03/14/2024 04/16/20 25 Overview (03/14/2024): ~16% wt loss x 4m; weight loss in setting of POTS, decreased oral intake, Gastroenteritis 03/11/2024 04/16/2025 Chest pain 02/05/2024 04/16/2025 Insomnia, unspecified 09/22/20232024 Diarrhea 05/19/2023 04/16/2025 Hematochezia 05/19/2023 04/16/2025 Melena 05/19/2023 04/16/2025 Encounters Date Type Department Care Team Description 04/20/2025 Results Follow-Up [facility] Medicine Specialties [address] [place] [address] Cony Mcelroy MD 04/18/2025 8:38 AM EDT Anesthesia Event [facility] [address] [place] [address] Pantera White MD 04/18/2025 7:27 AM EDT - 04/18/2025 11:59 PM EDT Hospital Encounter [facility] [address] [place] [address] Cony Mcelroy MD Hardin, Bryan D, MD Ancel, Brian C, CRNA Guagenti, Patricia L Epigastric pain; Diarrhea, unspecified type; Gastroesophageal reflux disease, unspecified whether esophagitis present Discharge Disposition: Home or Self Care 04/18/2025 Travel 04/17/2025 Travel 04/04/2025 4:00 PM EDT Office Visit [facility] Medicine Specialties [address] [place] [address] Donaldo Terry MD Epigastric pain (Primary Dx); Diarrhea, unspecified type; Gastroesophageal reflux disease, unspecified whether esophagitis present 04/04/2025 Travel 04/03/2025 Travel 03/15/2025 3:30 PM EDT Consult [place] [facility] [address] [place] [address] Kendy Sanchez APRN Syncope, unspecified syncope type (Primary Dx) 03/15/2025 Travel 03/01/2025 10:13 AM EDT - 03/01/2025 11:59 PM EDT Hospital Encounter [facility] Pulmonary Function Testing [address] [place] [address] Dysautonomia-like disorder Discharge Disposition: Home or Self Care 03/01/2025 Travel 02/24/2025 Travel 02/16/2025 1:20 PM EDT Office Visit [facility] [address], [address] [place] [address] Courtney Torres MD Syncope and collapse (Primary Dx); Dysautonomia-like disorder 02/16/2025 Telephone [facility] [address], [address] [place] [address] 02/16/2025 Travel 02/15/2025 Travel from Last 3 Months Immunizations Immunization [...] Alive Maternal Grandmother Melania sheridan Mother Crystal craft Mother's Sister Ashanti Alive Social History Tobacco [...] Questionnaire-2 Score 0 12/15/2024 [facility] [...] a senior living (including now)? No 02/09/2024 [place] Depression Scale Answer Date Recorded [place] Depression Scale Total 6 08/08/2024 The [...] drink first t casi in the morning (EYE-METAL WIRE COATING OPERATOR) to steady your nerves or to [...] Mass Index 25.19 04/18/2025 7:54 AM EDT Plan of Treatment Upcoming Encounters Date Type Department Care Team (Late st Contact Info) Description 06/09/2025 7:30 AM EST Office Visit [facility] Medicine Specialties [address] [place] [address] Silverio Tam PA [address] [place] [address] 06/15/2025 12:30 PM EST Office Visit [place] [facility] [address] [place] [address] Laura Kendy, TRISTAN [address] [place] [address] 06/19/2025 8:00 AM EST Office Visit [facility] [place] [address], [address] [place] [address] Courtney Torres MD [address] [place] [address] 06/19/2025 12:30 PM EST Appointment [facility] [address] [place] [address] 06/21/2025 12:30 PM EST Appointment [facility] [address] [place] [address] Health Maintenance Due Date Last Done Comments [...] - Td or Tdap) 02/21/2020 02/20/2010, 04/26/2002 [id number] Vaccine (2 - Jamsine risk series) 03/21/2021 02/21/2021 [facility]-Influenza Vaccine (#1) 2025 04/29/2023 [facility]-Depression Screening 12/15/2025 025, 12/15/2024, 08/08/2024 [facility]-Zoster Vaccines (1 of 2) 2048 07/06/2001 [facility]-Hepatitis A Vaccines Completed 11/21/2010, 01/25 [facility]-Hepatitis C Screening Completed 02/07/2024 [facility]-HIV Screening Completed 04/18/2024, 02/07/2024 [facility]-Obesity Intervention Completed 025, 03/15/2025, 02/16/2025, Additional history exists [facility]-HIB Vaccines Aged Out [...] whether esophagitis present SURGICAL PATHOLOGY EXAM Routine 04/18/20 8:49 AM EDT Epigastric pain Diarrhea, unspecified type Gastroesophageal reflux disease, unspecified whether esophagitis present POCT , URINE Routine 04/18/2025 7:53 AM EDT EXERCISE ECG Routine 03/01/2025 11:19 AM EDT Dysautonomia-like disorder HC CARDIOPULMONARY EXERCISE TESTING - COMPLEX STRESS TEST, PULMONARY Routine 03/01/2025 11:19 AM EDT Dysautonomia-like disorder CATECHOLAMINES, FRACTIONATED, PLASMA Routine 02/16/2025 2:17 PM EDT Dysautonomia-like disorder CORTISOL Routine 02/16/2025 2:17 PM EDT Dysautonomia-like disorder FERRITIN, SERUM Routine 02/16/2025 2:17 PM EDT Dysautonomia-like disorder TRYPTASE (SO) Routine 02/16/2025 2:17 PM EDT Dysautonomia-like disorder HIV 1/2 ANTIBODY/ANTIGEN SCREEN WITH REFLEX TO HIV I/II DIFFERENTIATION Routine 04/18/2024 10:13 AM EDT Supervision of high risk in second trimester HEPATITIS C ANTIBODY - ED W/REFLEX TO HCV QUANT PCR STAT 02/07/2024 10:11 PM EDT from Last 3 Months or Most Recently Relevant to Health Maintenance Results * Colonoscopy (04/18/2025 9:10 AM EDT) [...] Schwartz, Ingrid, MD Proceduralist Jean Padilla Endo Automation Engineering Technician Dana Brian Endo Nurse Pantera White MD [...] of bowel preparation was evaluated using the [place] Bowel Preparation Scale with scores of: right [...] otherwise normal in forward and retroflexed views. us [place] Aguero MD GI PROCEDURE ORDERABLES [...] medications. Staff Staff Role Sea Otero CRNA NITROGLYCERIN SUPERVISOR Cony Mcelroy MD Proceduralist Jean Padilla Endo Automation Engineering Technician Dana Brian Endo Nurse Pantera White MD [...] biopsy forceps to rule out H. pylori. Albania Aguero MD GI PROCEDURE ORDERABLES Susannah oliva Result * Surgical Pathology Exam (04/18/2025 8:49 AM EDT) Case Report Surgical Pathology Case: [id number] Authorizing Provider: Cony Mcelroy, Collected: 04/18/2025 0849 Ordering Location: [facility] Endoscopy Received: 04/18/2025 0918 Pathologist: Chet Harris MD Specimen: Stomach, biopsy 04/19/2025 3:22 PM EDT [facility] Final Diagnosis STOMACH, BIOPSY: - REACTIVE GASTROPATHIC CHANGES WITH FOCAL INTESTINAL METAPLASIA (PREDOMINANTLY COMPLETE) - NO EVIDENCE OF DYSPLASIA - NO EVIDENCE OF HELICOBACTER-LIKE ORGANISMS ON ROUTINE STAIN 04/19/2025 3:22 PM EDT [facility] at 1522 EDT Clinical Information R10.13 - Epigastric pain [ICD-10-CM] R19.7 - Diarrhea, unspecified type [ICD-10-CM] K21.9 - Gastroesophageal reflux disease, unspecified whether esophagitis present [ICD-10-CM] EGD: Normal 04/19/2025 3:22 PM EDT [facility] Gross Description A. BIOPSY Received in formalin labeled b iopsy, stomach , are 5 pink-reyes soft tissue fragments that range from 0.3-0.6 cm in greatest dimension. Entirely submitted in cassette A1. Cold Time: <1m Haritha Mccauley 04/19/2025 3:22 PM EDT [facility] Note: A resident was involved in the service. I attest I examined the relevant preparations for the specimens and confirmed the diagnosis or interpretation. 04/19/2025 3:22 PM EDT [facility] Tissue Stomach structure / Unknown 04/18/2025 8:49 AM EDT 04/18/2025 9:18 AM EDT us Cony Carter MD LAB PATHOLOGY ORDERAB LES Final Result Performing Organization Address City/[facility]/ZIP Co de Phone Number [facility] [address] [place] [address] * POCT , URINE (04/18/2025 7:53 AM EDT) POCT Test, Urine Negative Males and Non-pregnan t Females: Negative 04/18/2025 7:59 AM EDT [facility] Rn Family ID Melinda Allen 04/18/2025 7:59 AM EDT [facility]ALTH[facility]ARE LAB Device ID [id number] 04/18/2025 7:59 AM EDT [facility] Urine Urine specimen obtained by clean catch procedure / Unknown 04/18/2025 7:53 AM EDT 04/18/2025 7:59 AM EDT us Cony Carter MD LAB POINT OF CARE TEST DOCKED DEVICE UNSOLICITED RESULTS Final Result Performing Organization Address City/[facility]/ZIP Co de Phone Number [facility] [address] [place] [address] * CPET ECG (03/01/2025 11:19 AM EDT) Anatomical Region Laterality Modality PFT 03/01/2025 10:4 9 AM EDT Narrative 03/01/2025 11:43 AM EDT Images from the original result were not included. [facility] Cardiopulmonary Exercise Testing Laboratory The risks [...] sinus rhythm at 71 bpm. Heart Rate [place] unable to be determined Pulmonary Performance/Ventilatory Response: [...] at peak exercise was 87 L/min (Breathing [place] Ratio: 70%). VE/VCO2 slope unable to be obtained. Conclusion: Due to early termination of the test (after 1:30-2:00 minutes) unable to accurately interpret the findings. Can consider repeating in the future if the patient is able to exercise. Tay Barraza DO Postdoctoral Research Fellowpatient care technician instructor Cardiovascular Medicine Director of Sports Cardiology [facility] [place] Courtney Torres MD PFT ORDERABLES Final Result * (ABNORMAL) Cardiopulmonary Exercise Test (03/01/2025 11:19 AM EDT) [id number] 4.85(A) 3.04 - 4.60 L VYAIRE PFT FEV1 PRE 3.42 2.62 - 3.88 L VYAIRE PFT FEV1/FVC PRE 70.53(A) 74.27 - 94.96 % VYAIRE PFT HAP09-75% PRE 2.34(A) 2.43 - 5.18 L/s VYAIRE PFT PEF PRE 8.68(A) 5.24 - 8.66 L/s VYAIRE PFT TWT2FNE 126.25(A) 114.18 - 114.18 L/min VYAIRE PFT Anatomical Region Laterality Modality PFT 03/01/2025 10:2 6 AM EDT Narrative 03/01/2025 11:43 AM EDT Images from the original result were not included. [facility] Cardiopulmonary Exercise Testing Laboratory The risks [...] sinus rhythm at 71 bpm. Heart Rate [place] unable to be determined Pulmonary Performance/Ventilatory Response: [...] at peak exercise was 87 L/min (Breathing [place] Ratio: 70%). VE/VCO2 slope unable to be obtained. Conclusion: Due to early termination of the test (after 1:30-2:00 minutes) unable to accurately interpret the findings. Can consider repeating in the future if the patient is able to exercise. Tay Barraza DO Postdoctoral Research Fellowpatient care technician instructor Cardiovascular Medicine Director of Sports Cardiology [facility] [place] us Courtney Torres MD PFT ORDERABLES Final Result * Catecholamines, fractionated, plasma (02/16/2025 2:17 PM EDT) [facility] CATECHOLAMINES, INTERP See Note 02/27/2025 12:36 AM EDT [facility] ([facility]) DOPAMINE <130 <=240 pmol/L 02/27/2025 12:36 AM EDT [facility] ([facility]) EPINEPHRINE 167 <=330 pmol/L 02/27/2025 12:[address] [facility] NOREPINEPHRINE 1597 1050 - 4800 pmol/L 02/27/2025 12:[address] [facility] Blood Venous blood specimen / Unknown Venipuncture / Unknown 02/16/2025 2:17 PM EDT 02/16/2025 2:17 PM EDT Narrative [facility] - 02/27/2025 12:36 AM EDT INTERPRETIVE INFORMATION:Epinephrine [...] reference intervals for this test in the [facility] Test Directory ([employer]). This test was developed and its performance characteristics determined by [facility]. It has not been cleared or approved by the [place] Food and Drug Administration. This test was performed in a CLIA certified laboratory and is intended for clinical purposes. Performed By: [facility] [address] [place] [id number] Analytic Manager: Wilber Pardo MD, PhD CLIA Number: [id number] Courtney Torres MD LAB BLOOD ORDERABLES Final Re sult [facility] ([employer]) [address] [place] [address] * Tryptase (02/16/2025 2:17 PM EDT) Pathologist [facility] TRYPTASE 4.3 <=10.9 ug/L 02/19/2025 2:04 PM EDT [facility] Serum Venous blood specimen / Unknown 02/16/2025 2:17 PM EDT 02/16/2025 2:17 PM EDT Narrative [facility] ([place] - 02/19/2025 2:04 PM EDT Performed By: [facility] [address] [place] [address] Analytic Manager: Wilber Pardo MD, PhD CLIA Number: [id number] Courtney Torres MD LAB BLOOD ORDERABLES Final Re sult Performing Organization Address City/[facility]/ZIP Co de Phone Number [facility] [address] [place] [address] * (ABNORMAL) Ferritin, Serum (02/16/2025 2:17 PM EDT) [facility] Ferritin, Serum 6(L) 13 - 150 ng/mL 02/16/2025 6:17 PM EDT [facility] Blood Venous blood specimen / Unknown Venipuncture / Unknown 02/16/2025 2:17 PM EDT 02/16/2025 2:17 PM EDT Courtney Torres MD LAB BLOOD ORDERABLES Final Re sult [facility] [address] [place] [address] * Cortisol (02/16/2025 2:17 PM EDT) Pathologist [facility] Cortisol 2.80 Before 10am: 3.7 - 19.4. After 5pm: 2.9 - 17.3 ug/dL 02/16/2025 6:36 PM EDT [facility] Comment:Testing performed on NextDigest, standardized against FDC Reference Standard concentration values assigned by LC-MS/MS and verified by BCR 192 and BCR 193 certified reference materials. Blood Venous blood specimen / Unknown Venipuncture / Unknown 02/16/2025 2:17 PM EDT 02/16/2025 2:17 PM EDT us Courtney Torres MD LAB REF LAB BLOOD AND FLUID O RD Final Result Performing Organization Address [facility] Co de Phone Number [facility] [address] [place] [address] * HIV 1 & 2 Antibody/Antigen Screen (04/18/2024 10:13 AM EDT) Pathologist [facility] HIV 1 & 2 Antibody/Antigen Screen Non Reactive Non Reactive 04/18/2024 12:07 PM EDT [facility] Comment:Screening for HIV 1 & 2 antibodies, and P24 antigen is NONREACTIVE. No confirmatory testing is required. Blood Venous blood specimen / Unknown Venipuncture / Unknown 04/18/2024 10:13 AM EDT 04/18/2024 10:13 AM EDT us Shalonda Davies APRN LAB BLOOD ORDERABLES Susannah l Result Performing Organization Address [facility] de Phone Number [facility] [address] [place] [address] * Hepatitis C Antibody - ED (02/07/2024 10:11 PM EDT) [facility] Hepatitis C Antibody Negative Negative 02/07/2024 11:11 PM EDT [facility] Blood Venous blood specimen / Unknown Venipuncture / Unknown 02/07/2024 10:11 PM EDT 02/07/2024 10:18 PM EDT us Mark Roger MD LAB BLOOD ORDERABLES Final Resu lt Performing Organization Address [facility] de Phone Number [facility] [address] [place] [address] from Last 3 Months or Most Recently Relevant to Health Maintenance Additional Health Concerns Active Problems Noted Date Diagnosed Date CPM S22 PP LABOR (OBSTETRICS) 02/24/2024 Insurance [place] Advance Directives * Full Code (Latest Code [...] Patient has decision-making capacity? Yes Care Teams Clinical Applications Specialist Relationship Specialty Start Date End Date Rey Wyatt MD [address] [place] [address] [address] [place] [address] PCP - General 11/16/24 Angela Oleary, RN [facility] Registered Nurse Cardiology 02/17/24
--- OUTSIDE RECORDS SUMMARY | 2025-05-02 02:00 | XMS_ITS | Encounter Summary ---
Author Organization [facility] ([place], [place], [place], [place]) Address [address] [place] [address] Care Team Providers Care Manager Of Financial Name Role Phone Molly Louis MD Primary Care Provider [phone] Padmini Wyatt APRN Primary Care Provider [phone] Encounter Details Date Type Department Care Team (Late st Contact Info) Description 04/14/2024 Outside Orders [facility] Admitting [address] [place] [address] Silverio Tam, PA [address] [facility] [address] Wing [place] [id number] Blood in stool (Primary Dx) Social History [...] Date Guerrero rded Speak language other than Kazakh at home Not on file 08/13/2023 Want [...] 87(H) <=49 ug/g 04/19/2024 11:26 PM EDT [facility] Comment: REFERENCE INTERVAL: Calprotectin, Fecal by Immunoassay Less than 50 ug/g.........Normal 50-120 ug/g...............Borderline elevated, test should be re-evaluated in 4-6 weeks. 121 ug/g or greater.......Elevated Performed By: [facility] [address] [place] [address] Central Supply Supervisor: Wilber Pardo MD, PhD CLIA Number: [id number] Stool 04/14/2024 11:0 6 AM EDT 04/14/2024 11:47 AM EDT us [facility] - GENERAL ORDERAB LES Final Result Performing Organization Address [facility]/State/[facility] Co de Phone Number [facility] [address] [place] [address], [facility] [phone] documented in this encounter Visit Diagnoses Diagnosis Blood in stool- Primary documented in this encounter Care Teams Manager Of Financial Relationship Specialty Start Date End Date Molly Louis MD [address] [place] [address] PCP - General 08/22/24 04/11/25 Padmini Wyatt APRN [address] [address] PCP - General Nurse Practitioner 04/12/25 documented as of this encounter
--- OUTSIDE RECORDS SUMMARY | 2025-05-02 02:00 | XMS_ITS | Encounter Summary ---
Author Organization [facility] ([place], [place], [place], [place]) Address [address] [place] [address] Care Team Providers Care Director Of Labor Relations Name Role Phone Molly Louis MD Primary Care Provider [phone] Padmini Wyatt APRN Primary Care Provider [phone] Encounter Details Date Type Department Care Team (Late st Contact Info) Description 08/22/2024 Outside Orders [facility] Admitting [address] [place] [address] Silverio Tam, PA [address] [facility] [address] Wing [place] [id number] Esophageal reflux (Primary Dx) Social History Tobacco [...] Date Guerrero rded Speak language other than Salvadorean at home Not on file 08/13/2023 Want [...] EIA Negative Negative 08/23/2024 10:57 PM EST [facility] Comment: Performed By: [facility] [address] [place] [address] Organic Chemist: Wilber Pardo MD, PhD CLIA Number: [id number] Stool 08/22/2024 11:3 5 AM EST 08/22/2024 11:36 AM EST [facility] - GENERAL ORDERAB LES Final Result [facility] [address] [phone] * Calprotectin, Fecal by Immunoassay(SENDOUT) (08/22/2024 11:35 AM EST) Calprotectin, Fecal 26 <=49 ug/g 08/26/2024 8:14 AM EST [facility] Comment: REFERENCE INTERVAL: Calprotectin, Fecal by Immunoassay Less than 50 ug/g........Normal 50-120 ug/g..............Borderline elevated, test should be re-evaluated in 4-6 weeks. 121 ug/g or greater......Elevated Performed By: [facility] [address] [place] [address] Organic Chemist: Wilber Pardo MD, PhD CLIA Number: [id number] Stool 08/22/2024 11:3 5 AM EST 08/22/2024 11:36 AM EST [facility] - GENERAL ORDERAB LES Final Result [facility] [address] [place] [address], [facility] [phone] documented in this encounter Visit Diagnoses Diagnosis Esophageal reflux- Primary documented in this encounter Care Teams Director Of Labor Relations Relationship Specialty Start Date End Date Molly Louis MD [address] [place] [address] [address] [place] [address] PCP - General 08/22/24 04/11/25 Padmini Wyatt, TRISTAN [address] [address] PCP - General Nurse Practitioner 04/12/25 documented as of this encounter
--- OUTSIDE RECORDS SUMMARY | 2025-05-02 02:01 | XMS_ITS | Encounter Summary ---
Author Organization Healthcare Address [address] [place] [address] Care Team Providers Care Deputy Court Clerk Name Role Phone Angela Oleary RN Unavailable Unavailable Rey Wyatt MD Primary Care Provider [phone] Encounter Details Date Type Department Care Team (Latest Contact Info) Description 04/18/2025 Travel Social History Tobacco Use Types Packs/Day [...] often do you attend chur ch or adventism services? Never 02/22/2024 Do you [...] in a fdc (including now)? 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 SAW OPERATOR) to steady your nerves or to [...] Description 06/09/2025 7:30 AM EST Office Visit [place] [facility] [address] [place] [address] Silverio Tam PA [address] [place] [address] 06/15/2025 12:30 PM EST Office Visit [place] [facility] [address] [place] [address] Kendy Sanchez, CONCESSION MANAGER [address] [place] [address] 06/19/2025 8:00 AM EST Office Visit [facility] [place] [address], [address] [place] [address] Courtney Torres MD [address] [place] [address] 06/19/2025 12:30 PM EST Appointment [facility] [address] [place] [address] 06/21/2025 12:30 PM EST Appointment [facility] [address] [place] [address] documented as of this encounter Goals Goal [...] documented as of this encounter Care Teams Deputy Court Clerk Relationship Specialty Start Date End Date Rey Wyatt MD [address] [place], [place] [id number] PCP - General 11/16/24 Angela Oleary, RN [facility] Registered Nurse Cardiology 02/17/24 documented as of this encounter
--- OUTSIDE RECORDS SUMMARY | 2025-05-02 02:01 | XMS_ITS | Encounter Summary ---
Author Organization Healthcare Address [address] [place] [address] Care Team Providers Care Wealth Management Director Name Role Phone Angela Oleary RN Unavailable Unavailable Rey Wyatt MD Primary Care Provider [phone] Encounter Details Date Type Department Care Team [...] Patient Health Questionnaire-2 Score 0 12/15/2024 [facility] - Occupational [...] in a prison (including now)? No 02/09/2024 [place] Depression Scale Answer Date Recorded [place] Depression Scale Total 6 08/08/2024 The thought [...] first t casi in the morning (EYE-PUBLIC ADDRESS ANNOUNCER) to steady your nerves or to [...] Description 06/09/2025 7:30 AM EST Office Visit [place] [facility] [address], [address] [place] [address] Silverio Tam PA [address] [place] [address] 06/15/2025 12:30 PM EST Office Visit [place] [facility] [address] [place] [address] Kendy Sanchez, RN OSTOMY [address] [place] [address] 06/19/2025 8:00 AM EST Office Visit [facility] [place] [address], [address] [place] [address] Courtney Torres MD [address] [place] [address] 06/19/2025 12:30 PM EST Appointment [facility] [address] [place] [address] 06/21/2025 12:30 PM EST Appointment [facility] [address] [place] [address] documented as of this encounter Goals Goal [...] documented as of this encounter Care Teams Wealth Management Director Relationship Specialty Start Date End Date Rey Wyatt MD [address] [place], [place] [id number] PCP - General 11/16/24 Angela Oleary, RN [facility] Registered Nurse Cardiology 02/17/24 documented as of this encounter
--- OUTSIDE RECORDS SUMMARY | 2025-05-02 02:01 | XMS_ITS | Encounter Summary ---
Author Organization Healthcare Address [address] [place] [address] Care Team Providers Care Lockstitch Front Maker Name Role Phone Angela Oleary RN Unavailable Unavailable Rey Wyatt MD Primary Care Provider [phone] Encounter Details Date Type Department Care Team (Latest Contact Info) Description 04/17/2025 Travel Social History Tobacco Use Types Packs/Day [...] Score 0 12/15/2024 [facility] [...] in a jail (including now)? No 02/09/2024 [place] Depression Scale Answer Date Recorded [place] Depression Scale Total 6 08/08/2024 The thought [...] drink first t casi in the morning (EYE-GEOLOGICAL SCIENCE TEACHER) to steady your nerves or to [...] Description 06/09/2025 7:30 AM EST Office Visit [place] [facility] [address] [place] [address] Silverio Tam PA [address] [place] [address] 06/15/2025 12:30 PM EST Office Visit [place] [facility] [address] [place] [address] Kendy Sanchez, DIGITAL IMAGER [address] [place] [address] 06/19/2025 8:00 AM EST Office Visit [facility] [place] [address], [address] [place] [address] Courtney Torres MD [address] [place] [address] 06/19/2025 12:30 PM EST Appointment [facility] [address] [place] [address] 06/21/2025 12:30 PM EST Appointment [facility] [address] [place] [address] documented as of this encounter Goals Goal [...] documented as of this encounter Care Teams Lockstitch Front Maker Relationship Specialty Start Date End Date Rey Wyatt MD [address] [place], [place] [id number] PCP - General 11/16/24 Angela Oleary, RN [facility] Registered Nurse Cardiology 02/17/24 documented as of this encounter
--- OUTSIDE RECORDS SUMMARY | 2025-05-02 02:01 | XMS_ITS | Encounter Summary ---
Author Organization Healthcare Address [address] [place] [address] Care Team Providers Care Medical Physics Professor Name Role Phone Angela Oleary RN Unavailable Unavailable Rey Wyatt MD Primary Care Provider [phone] Encounter Details Date Type Department Care Team (Late st Contact Info) Description 04/20/2025 Results Follow-Up [facility] [address] [place] [address] Cony Mcelroy MD [address] [place] [address] Social History Tobacco Use Types [...] How often do you attend chur or latter day services? Never 02/22/2024 Do [...] Recorded Patient Health Questionnaire-2 Score 0 12/15/2024 [facility] - Occupational Stress Questionnaire Answer Date [...] in a fdc (including now)? No 02/09/2024 [place] Depression Scale Answer Date Recorded [place] Depression Scale Total 6 08/08/2024 The [...] first t casi in the morning (EYE-MANAGER SPEECH) to steady your nerves or to get [...] Description 06/09/2025 7:30 AM EST Office Visit [place] [facility] [address] [place] [address] Silverio Tam PA [address] [place] [address] 06/15/2025 12:30 PM EST Office Visit [place] [facility] [address] [place] [address] Kendy Sanchez APRN [address] [place] [address] 06/19/2025 8:00 AM EST Office Visit [facility] [place] [address], [address] [place] [address] Courtney Torres MD [address] [place] [address] 06/19/2025 12:30 PM EST Appointment [facility] [address] [place] [address] 06/21/2025 12:30 PM EST Appointment [facility] [address] [place] [address] documented as of this encounter Goals Goal [...] as of this encounter Care Teams Medical Physics Professor Relationship Specialty Start Date End Date Rey Wyatt MD [address] [facility] [address] [place] [address] PCP - General 11/16/24 Angela Oleary, RN [facility] Registered Nurse Cardiology 02/17/24 documented as of this encounter
--- OUTSIDE RECORDS SUMMARY | 2025-05-02 02:01 | XMS_ITS ---
Author Organization [facility] Address [address] [place] [address] Care Team Providers Care Graduating Machine Operator Name Role Phone Angela Oleary RN Unavailable Unavailable Rey Wyatt MD Primary Care Provider [phone] Community Health Worker Status:Active (Active) Start date:08/01/2024 Enrollment date:08/01/2024 Overview This episode type is for outpatient Community Health Workers enrolling patients in their program. Continued Care and Services Coordination
--- OUTSIDE RECORDS SUMMARY | 2025-05-02 02:01 | XMS_ITS | Encounter Summary ---
Author Organization Healthcare Address [address] [place] [address] Care Team Providers Care Head Bone Grinder Name Role Phone Molly Louis MD Primary Care Provider [phone] Angela Oleary RN Unavailable Unavailable Rey Wyatt MD Primary Care Provider [phone] Reason for Visit * Reason Onset Date Comments Med Refill 03/23/2024 Encounter Details Date Type Department Care Team ([facility] Contact Info) Description 03/23/2024 Refill Medical Office Building Obstetrics and Gynecology [address], [address] [place] [address] Shalonda Davies, STAFF CYTOTECHNOLOGIST [address] [place] [address] Social History Tobacco Use Types [...] 0 02/17/2024 [facility] - [...] in a halfway (including now)? No 02/09/2024 [place] Depression Scale Answer Date Recorded [place] Depression Scale Total 8 02/22/2024 The thought [...] drink first t casi in the morning (EYE-CAN MACHINE OPERATOR) to steady your nerves or [...] Description 06/09/2025 7:30 AM EST Office Visit [facility] Medicine Specialties [address] [place] [address] Silverio Tam PA [address] [place] [address] 06/15/2025 12:30 PM EST Office Visit [facility] [address] [place] [address] Kendy Sanchez, STAFF CYTOTECHNOLOGIST [address] [place] [address] 06/19/2025 8:00 AM EST Office Visit [facility] [place] [address], [address] [place] [address] Courtney Torres MD [address] [place] [address] 06/19/2025 12:30 PM EST Appointment [facility] [address] [place] [address] 06/21/2025 12:30 PM EST Appointment [facility] [address] [place] [address] documented as of this encounter [...] as of this encounter Care Teams Head Bone Grinder Relationship Specialty Start Date End Date Molly Louis MD [address] [place] [address] PCP - General Family Medicine 02/09/24 11/15/24 Rey Wyatt MD [address] [place], [place] [id number] PCP - General 11/16/24 Angela Oleary, RN [facility] Registered Nurse Cardiology 02/17/24 documented as of this encounter
--- OUTSIDE RECORDS SUMMARY | 2025-05-02 02:01 | XMS_ITS | Encounter Summary ---
Author Organization Healthcare Address [address] [place] [address] Care Team Providers Care Aircraft Navigator Name Role Phone Molly Louis MD Primary Care Provider [phone] Angela Oleary RN Unavailable Unavailable Rey Wyatt MD Primary Care Provider [phone] Reason for Visit * Reason Comments Community Resources Encounter Details Date Type Department Care Team ([facility] Contact Info) Description 08/01/2024 Patient Outreach Medical Office Building Obstetrics and Gynecology [address] [facility], [address] [place] [address] Sweta Rankin Community Resources Social History Tobacco Use Types Packs/Day Years [...] in a retirement (including now)? No 02/09/2024 [place] Depression Scale Answer Date Recorded [place] Depression Scale Total 6 08/08/2024 The thought [...] drink first t casi in the morning (EYE-HOP PICKER) to steady your nerves or to [...] 12/15/2024 2:22 PM EDT Kingsley Alvarado * Calculated C-SSRS Risk Score (Lifetime/Recent) Answer Date of Assessment Author No Risk Indicated 11/20/2024 9:44 PM EDT Shani Ruelas RN * How difficult have these problems made it for you to do your work, take care of things at home, or get along with other people? Answer Date of Assessment Author Not difficult at all 12/15/2024 2:22 PM EDT Kingsley Shabazz * Question Answer Date of Assessment Author 1. Wish to be (Past 1 Month) No 11/20/2024 9:44 PM EDT Shani Ruelas, JANELL 2. Non-Specific Active Suici keron Thoughts (Past 1 Month) No 11/20/2024 9:44 PM EDT Giulia Ruelas, JANELL 6. Suicidal Behavior (Lifetime) No 9:44 PM EDT Shani Ruelas RN documented as of this encounter Plan of Treatment Upcoming Encounters Date Type Department Care Team (Late st Contact Info) Description 06/09/2025 7:30 AM EST Office Visit [facility] Medicine Specialties [address] [place] [address] Silverio Tam PA [address] [place] [address] 06/15/2025 12:30 PM EST Office Visit [facility] [address], [address] [place] [address] Kendy Sanchez APRN [address] [place] [address] 06/19/2025 8:00 AM EST Office Visit [facility] [place] [address], [address] [place] [address] Courtney Torres MD [address] [place] [address] 06/19/2025 12:30 PM EST Appointment [facility] [address] [place] [address] 06/21/2025 12:30 PM EST Appointment [facility] [address] [place] [address] documented as of this encounter Goals Goal [...] documented as of this encounter Care Teams Aircraft Navigator Relationship Specialty Start Date End Date Molly Louis MD [address] [place], [place] [id number] PCP - General Family Medicine 02/09/24 11/15/24 Rey Wyatt MD [address] [place] [address] PCP - General 11/16/24 Angela Oleary, RN [facility] Registered Nurse Cardiology 02/17/24 documented as of this encounter
--- OUTSIDE RECORDS SUMMARY | 2025-05-02 02:01 | XMS_ITS | Encounter Summary ---
Author Organization Healthcare Address [address] [place] [address] Care Team Providers Care Bmx Rider Name Role Phone Angela Oleary RN Unavailable Unavailable Rey Wyatt MD Primary Care Provider [phone] Encounter Details Date Type Department Care Team [...] Recorded Patient Health Questionnaire-2 Score 0 12/15/2024 [facility] [...] in a usp (including now)? No 02/09/2024 [place] Depression Scale [...] drink first t casi in the morning (EYE-PHARMACY CLINICAL COORDINATOR) to steady your nerves or to [...] Description 06/09/2025 7:30 AM EST Office Visit [place] [facility] [address] [place] [address] Silverio Tam PA [address] [place] [address] 06/15/2025 12:30 PM EST Office Visit [place] [facility] [address] [place] [address] Kendy Sanchez, WARD SERVICE SUPERVISOR [address] [place] [address] 06/19/2025 8:00 AM EST Office Visit [facility] [place] [address], [address] [place] [address] Courtney Torres MD [address] [place] [address] 06/19/2025 12:30 PM EST Appointment [facility] [address] [place] [address] 06/21/2025 12:30 PM EST Appointment [facility] [address] [place] [address] documented as of this encounter Goals Goal [...] documented as of this encounter Care Teams Bmx Rider Relationship Specialty Start Date End Date Rey Wyatt MD [address] [place], [place] [id number] PCP - General 11/16/24 Angela Oleary, RN [facility] Registered Nurse Cardiology 02/17/24 documented as of this encounter
--- OUTSIDE RECORDS SUMMARY | 2025-05-02 02:01 | XMS_ITS | Clinical Summary ---
Author Organization [facility] Address [address] [place] [address] Care Team Providers Care Sanitation Worker Name Role Phone Provider, No Known Primary [...] Take 1 tablet by mouth Daily. Active Family History Medical History Relation Name Comments Crohn's disease Brother 1 Liver disease Brother 2 Heart attack Father Stroke Father Wilm's tumor Father Autoimmune disease Mother Thyroid disease Mother Relation Name Status Comments Brother 1 Alive Brother 2 Alive Father Alive Mother Social History Tobacco Use Types Packs/Day Years Used Date Smoking Tobacco: Every Day Cigarettes 1 4.8 Started: 2020 Smokeless Tobacco: Never Tobacco Cessation:Ready [...] Annual Gynecologic Pelvic and Breast Exam 1998 Pneumococcal Vaccine 0-49 (1 of 2 - PCV) 2017 PAP SMEAR 2019 TDAP/TD VACCINES (2 - Td or Tdap) 02/21/2020 010 ANNUAL PHYSICAL 01/10/2025 INFLUENZA VACCINE 02/24/2025 04/29/2023 HEPATITIS C SCREENING Completed 02/07/2024 Insurance [place]ICAID [place] Care Teams Sanitation Worker Relationship Specialty Start Date End Date Provider, [place] [address] PCP - General 02/08/24
--- OUTSIDE RECORDS SUMMARY | 2025-05-02 02:01 | XMS_ITS | Data Portability ---
Author Organization [facility] & MELINA Brower ADMIN Address [address] [place] [id number] Care Team Providers Care Mold Filler Name Role Phone MOLLY BOLTON Primary Care Provider Assessment No assessment recorded. Plan of Treatment Reminders Order Date Submit Date Provider Last Modified By Organization Details Last Modified Time Details Appointments MENTAL [facility] 60 2024 11:30A M THOMAS KIRBYP Not available Not available Not available Lab urinalysi s, dipstick 2023 024 [email or web address] [facility]- Floor 2, [address], [address] [facility], [address], [place], [address], 12/14/2023 13:09:11 culture, urine 2023 024 [facility] (Add On Labs Only), [address] [place] [address] [place], [address], 12/14/2023 19:07:28 Referral behaviora health referral - Anxiety not respondin g to buspirone . patient. Counselin g and medicatio n managemen t. 2023 024 KEATON [facility], [address] [place], [address], 04/05/2024 14:52:37 dermatolo gist referral 2023 024 [email or web address] [facility], [address] [place] [address], [address], 10/20/2023 12:02:18 Procedures None recorded. Surgeries None recorded. Imaging None recorded. Medication Orders doxylamin e 10 mg-pyrido xine (vit B6) 10 mg tablet,de layed release 2023 024 [facility], [address] [place] [address] [address], [place], [place], [id number], 12/14/2023 11:36:15 cephalexi n 500 mg tablet 2023 024 [facility], [address] [place] [address] [address], [place], [place], [id number], 02/02/2024 08:44:10 ondansetr on 4 mg disintegr ating tablet 2023 024 [facility], [address] [place] [address] [address], [place], [place], [id number], 12/14/2023 11:38:18 labetalol 100 mg tablet 2023 024 [facility], [address] [place] [address] [address], [place], [place], [id number], 02/02/2024 08:44:37 Patient TargetsNo targets recorded. Patient Instructions Encounter Date Encounter Id Patient Instructions Last Modified By Organization Details Last Modified Time 09/22/2023 [id number] Follow-up for yearly exam 02/2024 and prn [email or web address] Not available 09/22/2023 18:44:56 12/14/2023 [id number] Follow-up prn Not available 12/14/2023 21:37:32 02/02/2024 [id number] Follow-up prn (patient's current symptoms to be managed by cardiology and OB/MFM). 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 patient. Counseling and medication management. Referring Physician: Molly Bolton [facility] Medicine, Encounter Date: 03/22/2024 Results Created Date [...] 2 - 3 MONTH S Not Available [facility] (Pre-Op Clinic) [address] [place] [address] [place], [address], 12/02/2023 17:18:42 12/02/19 24 12/02/2023 HCG BETA QUANT ITATI VE note Unles s other juan noted testi ng perfo rmed at: [facility] [address] [place] [address] Micah plascencia MD Not Available [facility] (Pre-Op Clinic) [address] [place] [address] [place], [address], 12/02/2023 17:18:42 12/14/19 24 12/14/2023 CULTU RE URINE W PRESU MP ID results [facility] 12-14 912 No Signi fican t Growt h at 1 Day [facility] 2024- 05-22 711 No Signi fican t Growt h at 2 Days Not Available [facility] ([facility]) [address] [place], [address], 12/16/2023 07:13:14 12/14/19 24 12/14/2023 CULTU RE URINE W PRESU MP ID note Unles s other juan noted testi ng perfo rmed at: [facility] [address] [place] [address] Micah plascencia MD Not Available [facility] ([facility]) [address] [place] [address] [place], [address], 12/16/2023 07:13:14 12/14/19 24 12/14/2023 urina lysis , dipst ick Leukocytes (reference range) small Not Available [facility] Floor 2, 606 [address] [facility] [address] [place] [address], [phone], 12/14/2023 11:20:55 12/14/19 24 12/14/2023 urina lysis , dipst ick Nitrite (reference range:) negati ve Not Available [facility]- Floor 2, [address] [place] [address], [phone], 12/14/2023 11:20:55 12/14/19 24 12/14/2023 urina lysis , dipst ick Urobilinogen (reference range) 0.2 Not Available [facility]- Floor 2, [address] [place] [address], [phone], 12/14/2023 11:20:55 12/14/19 24 12/14/2023 urina lysis , dipst ick Protein (reference range) 30 Not Available [facility]- Floor 2, 606 [address] [facility] [address] [place] [address], [phone], 12/14/2023 11:20:55 12/14/19 24 12/14/2023 urina lysis , dipst ick pH (reference range 5-8.5) 5.5 Not Available [facility]- Floor 2, [address] [facility], [place], [address], 12/14/2023 11:20:55 12/14/19 24 12/14/2023 urina lysis , dipst ick Blood (reference range:) negati ve Not Available [facility]- Floor 2, [address] [facility], [place], [address], 12/14/2023 11:20:55 12/14/19 24 12/14/2023 urina lysis , dipst ick Specific [place] (reference range) 1.030 Not Available [facility]- Floor 2, [address] [facility], [place], [address], 12/14/2023 11:20:55 12/14/19 24 12/14/2023 urina lysis , dipst ick Ketone (reference range) modera te Not Available [facility]- Floor 2, [address] [facility], [place], [address], 12/14/2023 11:20:55 12/14/19 24 12/14/2023 urina lysis , dipst ick Bilirubin (reference range) small Not Available [facility]- Floor 2, [address] [facility], [place], [address], 12/14/2023 11:20:55 12/14/19 24 12/14/2023 urina lysis , dipst ick Glucose (reference range) negati ve Not Available [facility]- Floor 2, [address] [facility], [place], [address], 12/14/2023 11:20:55 12/14/19 24 12/14/2023 urina lysis , dipst ick Color (reference range: yellow-brown ) Brown Not Available [facility]- Floor 2, [address], [place], [address], 12/14/2023 11:20:55 11/20/19 24 11/20/2023 CT, abdom en + pelvi s, w/ contr ast No observ ation record ed. [address] Registration [address] [place] [place], [address], 11/20/2023 22:38:19 01/12/20 24 01/12/2024 XR, chest No observ ation record ed. [address] (Registration ) [address] [place] [address] [place], [address], 01/12/2024 13:53:47 01/12/20 24 01/12/2024 US, obste tric No observ ation record ed. [address] (Registration ) [address] [place] [address] [place], [address], 01/12/2024 17:05:57 01/20/20 24 01/20/2024 elect rocar diogr am No observ ation record ed. [email or web address] [address], [place], [address], 01/21/2024 12:30:49 01/22/20 24 01/22/2024 imagi ng inter preta tion No observ ation record ed. [address], [place], [address], 01/25/2024 11:42:05 01/22/20 24 01/22/2024 imagi ng inter preta tion No observ ation record ed. [email or web address] [address], [place], [address], 01/25/2024 11:41:58 02/06/20 24 02/05/2024 elect rocar diogr am, routi ne ECG, 12 leads min No observ ation record ed. [address], [place], [place], [address], 02/07/2024 14:15:54 04/27/2004/27/2024 rhyth m strip , EKG* No observ ation record ed. [email or web address] [facility] [address], [place], [address], 04/28/2024 15:07:12 07/27/19 25 07/27/2024 imagi ng inter preta tion No observ ation record ed. [email or web address] [facility] [address], [place], [place], [address], 07/28/2024 10:45:22 07/27/19 25 07/27/2024 elect harris chew am No observ ation record ed. [email or web address] [facility] [address], [place], [address], 07/28/2024 10:45:06 Result Notes None recorded. Problems Name Problem SNOMED Code Status Onset Date Resolution Date Notes Provider Name and Address Organization Details Recorded Time Gilbert's syndrome 99927313 Active 2022 Not Available [facility] 4 05:51:07 Gallstone 309468778 Active 2022 Not Available [facility] 4 05:51:07 Fracture of hand 20510502 Active 2022 Had two pins placed of the fifth metatar petr. Not Available [facility] 4 05:51:07 Sore throat 998325005 Active 2022 Not Available [facility] 4 05:51:07 Hematochezia 149123448 Active 2022 Not Available [facility] 4 05:51:07 Diarrhea 71625669 Active 2022 Not Available [facility] 4 05:51:07 Nausea 039053426 Active 2022 Not Available [facility] 4 05:51:07 Generalized abdominal pain 973488366 Active 2022 Not Available [facility] 4 05:51:07 Problem Notes None recorded. Procedures Surgical History Date Name Laterality Status Provider Name and Address Organization Details Recorded Time 07/31/19 24 laparoscopic cholecystectomy completed Teresa Garrett [place] - [facility] [place] 08/03/2023 09:25:16 11/09/19 23 Date of Last Pap Smear completed Deb Clark [place] - [facility] [place] 05/28/2023 14:21:22 07/27/19 23 Other completed Shani KRISHNAN - [facility] - [place] [facility] [place] 08/20/2023 13:45:01 03/03/20 22 EGD/Endoscopy completed Kymberly Gar [place] - [facility] [place] 05/19/2023 08:29:18 07/27/19 02 ENT Surgery completed Shani Nailso [place] - [facility] [place] 08/20/2023 13:45:01 07/27/19 01 ENT Surgery completed Shani Nailso [place] - [facility] - [place] [facility] [place] 08/20/2023 13:45:01 Tonsillectomy completed Shani KRISHNAN - [facility] [place] 07/08/2023 12:32:45 Dilation and Curettage completed Deb Clark [place] - [facility] [place] 01/26/2024 09:25:24 Imaging Results None recorded. Procedure Notes None recorded. Medical Equipment None Reported. Allergies Allergen ID Allergen Name Allergen Category Reaction Reaction Severity Criticality Documentation Date Start Date Code Code System Note Provider Name and Address Organization Details Recorded Time 885762 cinnamon preparati on food,medi cation other severe Not available 12/09/2023 79478 5 RxNorm throa t aurelio s Deb Montanae null, [place] - [facility] [place] 4 09:50:32 94510 Augmentin medicatio n rash Not available Not available 09/18/2022 50183 2 RxNorm Anmol Pelayo null, [place] - [facility] - [place] [facility] [place] 3 12:59:17 52782 Product containin g penicilli n (product) medicatio n Not available Not available Not available 09/18/2022 62540 8001 SNOMED Anmol Pelayo [facility], [place] - [facility] - [place] & [place] 3 12:59:25 Medications Name Sig Start Date [...] Not Available Not Available No t Available ketoconazol e 2 % shampoo USE SHAMPOO A BODY WASH, LATHER FOR 5 MINUTES THEN RINSE OFF. USE UNTIL RESOLVED DIRECTED active Not Available Not Available No [...] completed Not Available Not Available Not Available levothyroxi ne 25 mcg tablet TAKE ONE TABLET BY MOUTH EVERY DAY active Not Available Not Available No t Available cyproheptad ine 4 mg tablet 03/22 [...] Not Available Not Available No t Available ketoconazol e 2 % topical cream APPLY TOPICALLY TO THE AFFECTED AREA(S) TWICE DAILY FOR 2 TO 4 WEEKS. REPEAT NEEDED. active Not Available Not Available No t Available bromphenira mine-pseudo ephedrine-D M 2 mg-30 mg-10 mg/5 mL oral syrup 09/22 completed Not Available Not Available Not Available ondansetron 4 mg disintegrat ing tablet DISSOLVE ONE TABLET in MOUTH EVERY 8 HOURS NEEDED FOR NAUSEA AND VOMITING active Not Available Not Available No [...] Updated DateTime 4 162.56 cm 24.6 kg/m2 76720.1 5 g 98.2 [degF] 99 % 99 % 98 /min 110/80 mm[Hg] Francy KRISHNAN MELINA [facility] [place] 4 15:41:55 Date Recorded Body height Body mass index (BMI) Body weight Body temperature Oxygen saturation Oxygen saturation in Arterial blood by Pulse oximetry Heart rate Systolic And Diastolic Provider Name and Address Organization Details Last Updated DateTime 4 162.56 cm 23.6 kg/m2 52903.8 7 g 98.5 [degF] 97 % 97 % 88 /min 140/80 mm[Hg] Francy SUMMERS [facility] [place] 4 10:46:22 Date Recorded Body height Body mass index (BMI) Body weight Body temperature Oxygen saturation Oxygen saturation in Arterial blood by Pulse oximetry Heart rate Systolic And Diastolic Provider Name and Address Organization Details Last Updated DateTime 4 162.56 cm 20.8 kg/m2 85781.6 8 g 98.6 [degF] 99 % 99 % 100 /min 110/70 mm[Hg] Francy SUMMERS [facility] [place] 4 08:35:15 Date Recorded Body height Body mass index (BMI) Body weight Body temperature Oxygen saturation Oxygen saturation in Arterial blood by Pulse oximetry Heart rate Systolic And Diastolic Provider Name and Address Organization Details Last Updated DateTime 4 162.56 cm 20.4 kg/m2 01146.4 9 g 98.7 [degF] 100 % 100 % 76 /min 110/60 mm[Hg] Francy SUMMERS [facility] [place] 4 08:35:40 Date Recorded Body height Body mass index (BMI) Body weight Body temperature Oxygen saturation Oxygen saturation in Arterial blood by Pulse oximetry Heart rate Systolic And Diastolic Provider Name and Address Organization Details Last Updated DateTime 4 162.56 cm 20.8 kg/m2 36546.6 8 g 98.8 [degF] 99 % 99 % 98 /min 100/60 mm[Hg] Francy SUMMERS [facility] [place] 4 09:07:24 Social History Question Answer Notes LastModified by [employer] Details LastModified Time Tobacco Smoking Status Former Smoker Francy goodman, [place] SUMMERS [facility] [place] 03/17/2023 09:23:30 Do You Have An Advance Directive? No [email or web address] Information not available 05/28/2023 Are You Blind Or Do You Have Difficulty Seeing? No [email or web address] Information not available 05/28/2023 When Did You Quit Smoking? 1-5yearssinc elastcigaret te Information not available 08/13/2023 Are You Passively Exposed To Smoke? No Information not available 05/28/2023 How Many Years Have You Smoked Tobacco? 12 [email or web address] Information not available 03/17/2023 Sex: Female Functional Status Question Answer Note LastModified by [employer] Details LastModified Time Do you use any illicit or recreational drugs? No [email or web address] Information not available 03/17/2023 Do you or have you ever used any other forms of tobacco or nicotine? Yes Information not available 08/13/2023 What is your level of alcohol consumption? None [email or web address] Information not available 03/17/2023 Do you or [...] infarction 62 pt. added direct ly (04/28) [email or web address] Not available 08/20/2023 13:44:57 Brother Family history of Crohn's disease [email or web address] Not available 2023 08:20:21 Brother Autoimmune disease pt. added direct ly (04/28) [email or web address] Not available 04/28/2023 16:28:54 Mother Autoimmune disease pt. added direct ly (04/28) [email or web address] Not available 04/28/2023 16:28:41 Mother Disorder of thyroid gland [email or web address] Not available 2023 13:44:57 Mother Disease of liver [email or web address] Not available 2023 11:15:11 Sister Heart disease [email or web address] Not available 2023 13:44:57 Unspecified Relation Family history of stroke [email or web address] Not available 2023 08:20:21 Medical History Condition Response Coronary Artery Disease N Other Y None N Gout N Kidney Stones N Blood Diseases N Hyperthyroidism N Breast Cancer N Blood Transfusion N Hypothyroidism N Lung Disease N COPD N Depression N Developmental or Behavioral Disorders N Defects or Inherited Disease N Breast Problem N Difficulty Swallowing N [...] Abuse/Domestic Violence N Asthma N Reflux/GERD N Sleep Apnea N Jaundice N Hepatitis N Heart Disease N Pulmonary Embolism N Pre-Eclampsia N Hypertension N Chronic Ear Infections N Osteoporosis N Chicken Pox N Autism Spectrum Disorder (ASD) N Thrombophilias N Gynecological History Statement/Question Response [...] Recorded Time IPV 2 completed Not Available [facility] 08/05/2023 05:51:08 MMR 2 completed Not Available [facility] 08/05/2023 05:51:08 COVID-19 vaccine, vector-nr, rS-Ad26, PF, 0.5 mL 1 completed Not Available [facility] 08/05/2023 05:51:08 Tdap 0 completed Not Available [facility] 08/05/2023 05:51:08 varicella 1 completed Not Available [facility] 08/05/2023 05:51:08 HPV, quadrivalent 1 completed Not Available [facility] 08/05/2023 05:51:08 Hep A, ped/adol, 2 dose 1 completed Not Available [facility] 08/05/2023 05:51:08 Hep A, ped/adol, 2 dose 0 completed Not Available [facility] 08/05/2023 05:51:08 DTaP, unspecified formulation 2 completed Not Available [facility] 08/05/2023 05:51:08 Past Encounters Encounter ID Performer Location Encounter Start Date Encounter Closed Date Diagnosis/Indication Diagnosis SNOMED-CT Code Diagnosis ICD10 Code Diagnosis IMO Codes Diagnosis Note [id number] Marizol Paez MD [facility] [place] al[place]az [address] [facility] [place] [id number] 09/18/2022 12:53:09 09/18/2022 13:34:47 Pain in throat 675942285 R07.0 Strep swab in the office today was negative. Suggest this is a viral issue and will take time to resolve. Nausea 841024294 R11.0 Likely due to her underlying illness. Son also recently diagnosed with a viral illness. She understand s the importance of pushing fluids. Gilbert's syndrome 02110 000 E80.4 Pityriasis versicolor 56 886434 B36.0 Suggested OTC lamisil cream. [id number] BOOKER OLIVARES [facility]- Floor 1, [address] [place] [address] Drive,[facility] [address] [place] [address] 11/26/2022 12:14:40 11/26/2022 12:41:53 Nail deformity 175147129 L60.8 no obvious sign of fungal infection. Nail loss may be related to initial injury. Continue to monitor at home, follow up with any new or worsening symptoms. [id number] Cassie Jimenez [facility] Immediate Care- Floor 1, [address] [place] [address],[facility] [address] [place] [address] 01/21/2023 07:59:03 01/21/2023 08:28:49 Cough 12017057 R05.1 Generalize d aches and pains 64778819 R52 Exposure t o influenzavirus 959234148 Z20.828 Nausea 087838444 R11.0 Viral syndrome 012178969 B34.9 [id number] Saskia Soriano APRN [facility] Immediate Care- Floor 1, [address] [place] [address],[facility] [address] [place] [id number] 02/10/2023 15:16:39 02/10/2023 15:42:50 Sore throat 464497634 J02.9 We will contact with results of throat culture when available and treat if indicated. Increase fluid intake until better, Tylenol/Mo juan ramon as needed, salt water gargle twice a day. Follow up with any new or worsening symptoms. Discard toothbrush as we discussed. Exposure t o SARS-CoV-2 917775199 Z20.822 Continue with hand hygiene, social distancing and vaccines as recommende d by PCP. Viral syndrome 874849316 B34.9 Possibly HFMD, discussed supportive measures. [id number] Molly Bolton MD [facility] Primary Care- Floor 2, [address] [facility] [address] [place] [id number] 03/17/2023 09:03:37 03/17/2023 10:09:55 Irritable bowel syndrome 41312360 K58.9 Continue zofran prn nausea. Referral to GI for futher work-up. Chronic low back pain 27 9029375 M54.50 Continue meloxicam prn [id number] Molly Bolton MD [facility] Primary Care- Floor 2, [address] 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 Continue meloxicam and tylenol. Referring to Ortho Spine as precaution . Follow-up in 6 weeks and prn [id number] Indu Decker NP [facility] [address] [place] [address] [address] [place] [id number] 05/19/2023 07:54:57 05/19/2023 16:07:23 Hematochezia 546481711 K92.1 6-7 month history hematochez ia, describes large amount at times. Recommend labs today. Recommend colonoscop y to further evaluate r/o colitis, internal hemorrhoid s, other. Pt is scheduled for Colon 06/25 @ 9:00 AM Diarrhea 06375243 R19.7 History of alternatin g constipati on diarrhea. Experienci ng worsening diarrhea over the past 2 weeks. Plan for x-ray abdomen KUB to rule out underlying stool burden. Recommend colonoscop y with random colon biopsies to rule out underlying colitis, other. Plan for labs today. Patient's brother with history of Crohn's. Nausea 403055587 R11.0 Daily episodes of nausea ongoing for several years. EGD reviewed 03/03/[address] Leslie appeared normal, pathology negative for H pylori or celiac. Recommend gallbladde r US to further evaluate. Generalize d abdominal pain 831489921 R10.84 Episodes of upper abdominal pain radiating down throughout her abdomen. Plan for gallbladde r ultrasound as above as well as labs. Recommend colonoscop y to further evaluate. No etiology identified on EGD from 02/2022. 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 Continue meloxicam (if makes to drowsy can take tylenol or ibuprofen instead, discussed taking NSAIDs with food so as not to upset her stomach). Continue amitriptyl line (discussed that it is ok for her to take 10-20 mg rather than 5 mg). Nausea 086717024 R11.0 Following with GI and has upcoming HIDA scan and colonoscop y scheduled. Continue zofran prn. [id number] Francy Su, [facility] - [address], [address] [place] [id number] 07/09/2023 13:46:06 07/09/2023 15:31:08 Chronic cholecystitis 49352586 K81.1 I do feel that she is [...] low-fat diet. Irritable bowel syndrome with diarrhea 786597971 K58.0 I do think she has irritable bowel syndrome with diarrhea we did discuss that laparoscop ic cholecyste ctomy will probably not take care of all of those symptoms. She understand s. [id number] Molly Bolton MD [facility] Primary Care- Floor 2, [address] 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 Suspect possible pityriasis alba vs. pityriasis versicolor . Will treat for both possibilit ies with combinatio n steroid-an tifungal cream (as planning to have abdominal surgery soon, suggested just treating her back at this time and waiting until wounds heal after surgery to treat her abdomen. Chronic cholecystitis 20 693712 K81.1 Patient scheduled for cholecyste ctomy 07/24/23 Low back p ain co-occurrent with neuralgia of right sciatic nerve 7019428836 24960 M54.41 She is now following with Orthopedic s and will do PT after she has her gallbladde r surgery. [id number] Saskia Soriano, CONSTRUCTION AND MAINTENANCE INSPECTOR [facility] Immediate Care- Floor 1, [address] [facility],[place] [address] [place] [id number] 07/24/2023 08:07:21 07/24/2023 08:47:22 Sore throat 392692131 J02.9 Suspect viral etiology. Continue with symptom management , salt water gargles BID. Follow up if no improvemen t in 3-5 days or sooner with worsening symptoms. Cough 32271416 R05.1 Suspect that this is viral. Recommend [...] in 7-10 days, sooner with worsening symptoms. [id number] Francy Su DO [facility] - [address] [facility], [address] [place] [address] 08/13/2023 11:07:19 08/17/2023 14:08:53 Postoperative visit [id number] Z48.89 Status post laparoscop ic cholecyste ctomy she is doing well. We discussed that if her loose stools continue, I can give her cholestyra mine if needed. She is going to let me know. She should continue lifting restrictio ns for another couple of weeks. She is to let me know if she needs to see me again. [id number] Molly Bolton MD [facility] Primary Care- Floor 2, [address] [facility] [address] [place] [address] 09/22/2023 14:35:17 09/22/2023 16:07:30 Generalized rash [id number] R21 Suspected pityriasis alba. Have treated with both topical steroids and antifungal s without resolution . Referring to dermatolog y for further evaluation . History of cholecystectomy [id number] Z90.49 Recovering well from recent cholecyste ctomy for chronic cholecysti tis. Low back p ain co-occurrent with neuralgia of right sciatic nerve [id number] 27624 M54.41 Following w/ spine surgeon Dr. Lobato who has ordered back braces and PT. Insomnia [id number] G47.0 0 Ok to use benadryl prn sleep. I have prescribed amitriptyl ine in past for her sciatica and said she might try this prn in place of the benadryl as it might also help with sleep. [id number] Molly Bolton MD [facility] Primary Care- Floor 2, [address] [facility] te [employer] [id number] 12/14/2023 10:01:42 12/14/2023 12:08:18 Abnormal urinalysis 417415582 R82.90 Hospital UA w positive LE and UA today in clinic with small LE. Given symptoms of abdominal cramping and ongoing diarrhea, will treat for possible UTI per below and send for culture Acute urin glenn tract infection [id number] N39.0 Will start treatment with keflex as and follow-up urine culture and adjust antibiotic s prn Palpitations [id number] R0 0.2 Stop metoprolol and start labetalol. Patient has upcoming cardiology appt. Cardiac testing including troponins and TTE have so far been reassuring . Holter monitor results pending. Nausea and vomiting 1693 1999 R11.2 Start doxylamine -pyridoxin e for likely related nausea. Nausea [id number] R11.0 Discussed trying doxylamine first for nausea and if breakthrou gh nausea can use zofran prn (class B in , likely safe) test positive [id number] Z32.01 Patient has follow-up US later this week (elevated HCG but US has yet to confirm IUP) [id number] Molly Bolton MD [facility] Primary Care- Floor 2, [address] [facility] te [employer] [id number] 02/02/2024 08:22:33 02/02/2024 09:24:10 Impaired mobility 18717856 Z74.09 Due to her POTS (becomes lightheade [...] as well. Postural o rthostatic tachycardia syndrome [id number] G90.A Receiving periodic iv fluid injections ordered by OB and following with cardiology Tachycardia 6986933 R00. 0 [place] to be 2/2 to dehydratio n and POTS. Currently wearing holter monitor. Following with cardiology . Continue metoprolol . Hyperemesi s gravidarum 93747368 O21.0 Continue zofran. Following with OB Second tri mester 65631580 Z34.92 Following with OB. Anxiety 88413396 F41.9 Continue buspirone and hydroxyzin e prn. [id number] Molly Bolton MD [facility] Primary Care- Floor 2, [address],[place] [address] [place] [address] 03/22/2024 08:25:27 03/23/2024 07:20:01 Anxiety disorder [id number] F41.9 Continue buspirone. Collected gene sight testing today to help guide medication management (with plan to forward to her provider when establishe s). Referring to for medication management and counseling . Postural o rthostatic tachycardia syndrome 908722574 G90.A Receiving periodic iv fluid infusions ordered by OB and following with cardiology Anemia 782877391 D64.9 Iv iron infusions being considered by her OB Hematochezia 977951313 K 92.1 Following with GI. Scopes being post-poned until after she delivers. [id number] FLVAIA KIRBYt ic Intervent ions at [facility] [address] [place] [address] 05/11/2024 10:46:21 05/18/2024 10:10:23 [id number] Molly Bolton MD [facility] Primary Care- Floor 2, [address],[place] [place] [address] 07/12/2024 08:20:01 07/13/2024 07:24:42 Postural orthostatic tachycardia syndrome 442214136 G90.A Continues to have issues with standing, moving, exertion and mainly in wheelchair or in bed. Has intermitte ntly needed iv fluids. Brought in paperwork today for me to fill-out regarding functional capacity assessment for SS (managemen t to look at and decide if this is something I can fill out or if needs SS doctor to complete). Continues to follow with cardiology . Anxiety 76800056 F41.9 Continues on buspirone. 24743223 Z33.1 Following / obstetrics /MFM with plan for upcoming induction due to her POTS. [id number] FLAVIA KIRBY ic Intervent ions at [address] [place] [address] 06/14/2024 10:38:56 06/14/2024 12:25:13 [id number] FLAVIA KIRBY Therapeut ic Intervent ions at [address] [place] [address] 09/05/2024 08:00:30 09/05/2024 10:08:29 [id number] FLAVIA KIRBY ic Intervent ions at [address] [place] [address] 10/04/2024 09:53:14 10/04/2024 11:21:35 [id number] FLAVIA KIRBY ic Intervent ions at [address] [place] [address] 11/09/2024 11:15:42 11/15/2024 08:27:33 [id number] FLAVIA KIRBY ic Intervent ions at [address] [place] [address] 12/13/2024 09:47:41 12/15/2024 15:09:13 [id number] FLAVIA KIRBY [facility] Inter[facility] ions at [address] [place] [address] 02/27/2025 10:47:05 03/06/2025 11:58:21 [id number] FLAVIA KIRBY [facility] ions at [address] [place] [address] 03/31/2025 11:18:25 04/04/2025 11:25:52 Health Concerns Section Related Observation LastModified by Organization Detai ls LastModified Time None Recorded Concern Status LastModified by Organization Details LastModified Time None Recorded Advance Directives Directive N: Payers Insurance Date Sequence Insurance Name Policy Number Policy Zaidi Covered Member ID Zaidi Member ID Guarantor Name 03/31/2025 1 [place] [facility] - FFS/TRADITIONA L Francy [employer] [id number] Francy [employer] 03/23/2024 1 [place] [id number] Francy Miller [employer] [id number] Francy [facility] 02/13/2024 [employer] [facility] Unknown Francy [employer] 04/17/2023 2 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 Francy [employer] 03/31/2025 1 [employer] [place] (MEDICAID HMO) Francy [employer] [id number] [facility] Notes Date Note Type Note Provider Name and Address Organization Details Recorded Time 4 text/htm l ROS as noted in the HPI Francy Delarosa is a 22 yo female [...] score of 0 today Molly Bolton MD [address] [place] [address], [address], [place], [address], [facility] - [place] - [place] & [place] 09/22/2023 18:47:04 4 text/htm l Francy Evangel[employer] is a 23 yo female with depression, IBS-D, Gilbert's syndrome, chronic low back pain with sciatica, cholecystitis s/p recent cholecystectomy who presents for ER follow-ups. I personally reviewed [facility] ER notes from 12/04/23 and 12/10/23 #PalpitationsPatient seen the above dates for palpitations at [facility] seen at [facility] in between these two ER visitsHRs up to 130s at first ER visit with otherwise normal vitalsShe was given 1L fluid bolus and phenergan at first ER visitAt the [facility] visit in between had unremarkable cardiac echo and negative CTA chestAt 2nd [facility] ER visit HRs up to 120s with otherwise normal vitalsWas given 1L fluid bolus, po metoprolol, and iv zofranReferral was made to Cardiology Dr. Virgen and outpatient cardiac monitoringLabs from 12/04/23 notable for CMP with slightly low K of 3.2, negative troponin, BHCG of 1193, negative UDS, unremarkable CBC, bland UALabs from 12/10/23 notable [place] [address], negative troponin, CMP with slightly elevated tbili [...] inSays she will be able to see wildlife ecologist in [facility] sooner than she can get into cardiology here Molly Bolton MD [address] [place] [address], [address], [place], [address], [facility] - [facility] - [place] & [place] 12/14/2023 21:40:31 4 text/htm pj Delarosa is [...] without significant abnormalities, normal CBC 01/24/24 at [facility] and unremarkable CMP, CBC, lactic acid, lipase, and UA 01/31/24 at )Had has 2 OB US at 01/23/24 12 weeks gestation and had bedside US on 01/31/24 showing IUP with FHR of 152Was discharged on zofran, buspirone, hydroxyzine and metoprolol from [facility], felt to be having sinus tachycardia, possible POTs, and panic attacksFelt to have sinus tachycardia and dehydration at ER and given LR and zofran and prescribed pepcid at dischargeUK note mentioned patient currently wearing Holter monitor and hadShe says she continues to have some palpitations and dizziness with standingSays she is bed bound and wheelchair bound (she says that her wildlife ecologist made these specifications)Currently off workHaving a lot of nausea as well as diarrheaShe is getting banana bag infusions three times per week (ordered by her OB in [place]) and has been referred to [facility]baller at [facility] wearing Holter monitorReports HRs up to 170s-180s and sometimes looking like SVT on monitorsOn 25 mg metoprolol dailyShe is following with Dr. [facility] in [place] and has follow-up with them todaySays Holter monitor is to stay on until next weekSays yesterday was first day she went without a spell - no palpitations, no hand or feet numbness or tinglingSays current working diagnosis is POTSTaking buspirone and hydroxyzine prnSays not taking pepcid that was prescribed at Does have a cough productive of some yellow [...] or palpitations currently.She will be taking her FMLA paperwork to her OB to fill out Molly Bolton MD [address], [address], [place], [address], [facility] - [place] - [place] & [place] 02/02/2024 12:02:53 4 text/htm pj Delarosa is [...] drink and certain foodsContinues to follow with wildlife ecologist who has referred her to immunology (she is hoping to be tested for mcas)Says she has not heard from in [place] that I have referred her to (she [...] some with the POTs Molly Bolton MD [address] [place] [address], [address], [place], [address], [place] - [facility] - [place] & [place] 03/22/2024 17:52:00 4 text/htm pj Delarosa is [...] prescription after she delivers) Molly Bolton MD [address] [place] [address], [address], [place], [address], [facility] & [place] 07/12/2024 12:23:22 OBGyn Episode No OBEpisode recorded.
[2025-05-03 06:38] LABS: Cytomegalovirus (CMV) Ab, IgG >10.00 U/mL (0.00-0.59); Cytomegalovirus (CMV) Ab, IgM <30.0 AU/mL (0.0-29.9)
[2025-05-03 08:13] LABS: Triiodothyronine (T3) Free 3.3 pg/mL (2.0-4.4)
[2025-05-03 16:24] LABS: EBV Nuclear Antigen Ab, IgG >600.0 U/mL (0.0-17.9)
== END 2025-05-01 23:59 | disposition home or self-care (01) ==
LOC: LAB.DROPOF 05-02 01:58
PROVIDERS: PCP Nurse Practitioner Family; Visit Provider Nurse Practitioner Family
DX: D64.9 Anemia, unspecified (principal); B27.00 Gammaherpesviral mononucleosis without complication; E06.3 Autoimmune thyroiditis; G90.A Postural orthostatic tachycardia syndrome [POTS]
CPT/HCPCS: 82728; 83540; 83550; 84436; 84439; 84443; 84481; 85025; 86644; 86645; 86664; 86665

== ENCOUNTER 2025-05-07 17:00 | Emergency (ER) | payer MEDICAID, SELFPAY ==
--- OUTSIDE RECORDS SUMMARY | 2025-04-12 12:02 | XMS_ITS | Encounter Summary ---
Author Organization [employer] [facility] ([place], [place], [place], [place]) Address [address] [place] [address] Care Team Providers Care Lehr Attendant Name Role Phone EdmundoPadmini TRISTAN Primary Care Provider [phone] Reason for Referral * Cardiac Rehabilitation (Routine) - Closed Specialty Diagnoses / Procedures Referred By Contac t Referred To Contact Diagnoses Syncope Procedures Tilt table Provider, Not In System Leticia Nobles MD [address], [address] [address] Phone: tel: fax: Referral ID Status Reason Start Date Expiration Date Visits Re quested Visits Authorized [id number] Closed 09/19/2024 09/19/2025 1 1 Reason for Visit * Cardiac Rehabilitation (Routine) - Closed Specialty Diagnoses / Procedures Referred By Contac t Referred To Contact Diagnoses Syncope Procedures Tilt table Provider, Not In System Leticia Nobles MD [address], [facility] [address] [place] [address] Phone: tel: fax: Referral ID Status Reason Start Date Expiration Date Visits Re quested Visits Authorized [id number] Closed 09/19/2024 09/19/2025 1 1 Encounter Details Date Type Department Care Team (Latest Contact Info) Description 04/12/2025 12:02 PM EDT - 04/12/2025 11:59 PM EDT Hospital Encounter [facility] Procedure Lab [address] [place] [address] Syncope Discharge Disposition: Home or [...] Date Guerrero rded Speak language other than Norwegian at home Not on file 08/13/2023 Want [...] collapse documented in this encounter Care Teams Lehr Attendant Relationship Specialty Start Date End Date Padmini Wyatt, GAMER [address] [phone] PCP - General Nurse Practitioner 04/12/25 documented as of this encounter
[2025-05-07] VITALS (14 sets, daily range): BP systolic 102–152; BP diastolic 58–104; PULSE 64–105; RESP 10–16; TEMP 37.1; O2SAT 95–100; BMI 25.8
--- OUTSIDE RECORDS SUMMARY | 2025-05-07 17:08 | XMS_ITS | Clinical Summary ---
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 Name Role Phone Padmini Wyatt [employer] Primary Care Provider Allergies Active Allergy Reactions [...] - 04/12/2025 11:59 PM EDT Hospital Encounter [facility] [address] [place] [address] Syncope Discharge Disposition: Home or Self Care [...] Date Guerrero rded Speak language other than [place]i at home Not on file 08/13/2023 Want [...] this topic Medical Devices Implanted Type Area Head Of Sales Device Identifier Shelf Expiration Date Model / Serial / Lot K-Wire [id number] - [id number] Implanted:Qty: 1 on 08/04/2022 by Rex Rene MD at [facility] IMPLANTS Right: Hand [employer]IA[employer] [id number] / / Wire K-Wire 1.6mm 08622 - [id number] Implanted:Qty: 1 on 08/04/2022 by Rex Rene MD at [facility] IMPLANTS Right: Hand [employer] GRP:[employer] TECH / / Procedures Procedure Name Priority [...] Final Result from Last 3 Months Insurance [id number] (Home) [address] [place] [address] MEDICAID [place] Advance Directives For more information, please contact: [phone] * Full Code (Latest Code Status on File) Date Activated Date Inactivated Comments 08/04/2022 6:03 AM 08/04/2022 11:35 AM Care Teams Flattening Machine Operator Relationship Specialty Start Date End Date Padmini Wyatt APRN [address] [address] PCP - General Nurse Practitioner 04/12/25
--- OUTSIDE RECORDS SUMMARY | 2025-05-07 17:08 | XMS_ITS | Data Portability ---
Author Organization [facility] [place] [facility] Address [address] [place] [address] Assessment Encounter Date Assessment Date Assessment LastModified by Organization Details LastModified Time 12/18/2023 12/18/2023 Patient is ___weeks . Discussed plan. [email or web address] Not available 12/17/2023 10:25:59 Plan of Treatment Reminders Order Date Submit Date Provider Last Modified By Organization Details Last Modified Time Details Appointments None recorded. Lab urinalysis , dipstick [address], [address] [place] [address], [address], 4 17:15:18 unlisted lab - qnatal(R) advanced 2023 024 [facility], [address], [place], [address], 4 01:26:17 rapid strep group A, throat 2023 024 [facility], [address] [place] [address], [place], [address], 4 13:42:01 urinalysis , dipstick 2023 024 [facility], [address] [place], [address], 4 10:47:53 Referral None recorded. Procedures None recorded. Surgeries None recorded. Imaging None recorded. Medication Orders cefdinir 300 mg capsule 2023 024 [email or web address] [facility], [address] [place] [address] [address], [place], [place], [id number], 4 16:54:44 Patient TargetsNo targets recorded. Patient Instructions Encounter Date Encounter Id Patient Instructions Last Modified By Organization Details Last Modified Time 01/06/2024 [id number] Increase fluid intake, take tylenol and motrin for pain/fever as needed, advised to take medication as prescribed to eradicate bacterial infection and reduce chances of antibiotic resistance. Change toothbrush in 24 hours. May return to school 24 hours after antibiotic therapy. Follow up with PCP or OB for symptoms not improving. Go to ER with any concerning symptoms. [email or web address] Not available 01/06/2024 14:35:51 Reason for Referral None Reported. Results Created Date Observation Date Name Description Value Unit Range Abnormal Flag Note LastModifiedBy Organization Detail LastModifiedTime 12/09/19 24 12/10/2023 HEPAT IC FUNCT ION PANEL protein, total 7.7 g/dL 6.1-8. 1 normal Not Available [facility] [place] [facility] [address] [facility], [address], 12/10/2023 11:16:57 12/09/19 24 12/10/2023 HEPAT IC FUNCT ION PANEL albumin 4.7 g/dL 3.6-5. 1 normal Not Available [facility] [address], [place], [address], 12/10/2023 11:16:57 12/09/19 24 12/10/2023 HEPAT IC FUNCT ION PANEL globulin 3.0 g/dL_ (calc ) 1.9-3. 7 normal Not Available [facility] [place] [facility] [address] [facility], [place], [address], 12/10/2023 11:16:57 12/09/19 24 12/10/2023 HEPAT IC FUNCT ION PANEL albumin/glob ulin ratio 1.6 (calc ) 1.0-2. 5 normal Not Available [employer] [facility] [address] [place], [address], 12/10/2023 11:16:57 12/09/19 24 12/10/2023 HEPAT IC FUNCT ION PANEL bilirubin, total 2.6 mg/dL 0.2-1. 2 high Not Available [employer] [facility] [address] [place], [address], 12/10/2023 11:16:57 12/09/19 24 12/10/2023 HEPAT IC FUNCT ION PANEL bilirubin, direct 0.4 mg/dL < or = 0.2 high Not Available [employer] [facility] [address] [place] [address], [address], 12/10/2023 11:16:57 12/09/19 24 12/10/2023 HEPAT IC FUNCT ION PANEL bilirubin, indirect 2.2 mg/dL _(farhan c) 0.2-1. 2 high Not Available [employer] [facility] [address] [place], [address], 12/10/2023 11:16:57 12/09/19 24 12/10/2023 HEPAT IC FUNCT ION PANEL alkaline phosphatase 37 U/L 31-125 normal Not Available [employer] [facility] [address] [facility], [address], 12/10/2023 11:16:57 12/09/19 24 12/10/2023 HEPAT IC FUNCT ION PANEL AST 14 U/L 10-30 normal Not Available [employer] [facility] [address] [place], [address], 12/10/2023 11:16:57 12/09/19 24 12/10/2023 HEPAT IC FUNCT ION PANEL ALT 12 U/L 6-29 normal Not Available [facility] [place] [facility] [address] [facility], [address], 12/10/2023 11:16:57 12/09/19 24 12/10/2023 HCG, TOTAL , [place] [address] mIU/m L high Refer ence Range Nonpr [...] goldie by the FDA or the [facility] actur er of the assay . Not Available [facility] [place] [facility] [address] [facility], [place], [address], 12/10/2023 11:16:58 12/09/19 24 12/09/2023 urina lysis , dipst ick Leukocytes Modera te Not Available [address], [address], 12/09/2023 08:11:20 12/09/19 24 12/09/2023 urina lysis , dipst ick Nitrite negati ve Not Available [address], [address], 12/09/2023 08:11:20 12/09/19 24 12/09/2023 urina lysis , dipst ick Urobilinogen .2 Not Available [address], [address], 12/09/2023 08:11:20 12/09/19 24 12/09/2023 urina lysis , dipst ick Protein Negati ve Not Available [address], [address], 12/09/2023 08:11:20 12/09/19 24 12/09/2023 urina lysis , dipst ick pH 5.5 Not Available [address], [address], 12/09/2023 08:11:20 12/09/19 24 12/09/2023 urina lysis , dipst ick Blood Negati ve Not Available [address], [address], 12/09/2023 08:11:20 12/09/1912/09/2023 urina lysis , dipst ick Specific Ericson 1.025 Not Available [address], [address], 12/09/2023 08:11:20 12/09/19 24 12/09/2023 urina lysis , dipst ick Ketone Small Not Available [address], [address], 12/09/2023 08:11:20 12/09/19 24 12/09/2023 urina lysis , dipst ick Bilirubin Negati ve Not Available [address], [address], 12/09/2023 08:11:20 12/09/19 24 12/09/2023 urina lysis , dipst ick Glucose Negati ve Not Available [address], [address], 12/09/2023 08:11:20 12/09/19 24 12/09/2023 urina lysis , dipst ick Appearance Clear Not Available [address], [address], 12/09/2023 08:11:20 12/09/19 24 12/09/2023 urina lysis , dipst ick Color Dark Yellow Not Available [facility] [address] [facility], [place], [address], 12/09/2023 08:11:20 12/09/19 24 12/09/2023 pregn suzanne test, urine HCG positi ve Not Available [facility] [address] [facility], [place], [address], 12/09/2023 08:11:34 12/18/19 24 12/22/2023 OBSTE TRIC PANEL W/FOU RTH GENER ATION HIV AND HEPAT ITIS C AB W/REF L white blood cell count 6.2 thous and/u L 3.8-10 .8 normal Not Available [facility] [place] [facility] [address] [employer] [place], [address], 12/22/2023 10:53:19 12/18/19 24 12/22/2023 OBSTE TRIC PANEL W/FOU RTH GENER ATION HIV AND HEPAT ITIS C AB W/REF L red blood cell count 4.24 iron on/uL 3.80-5 .10 normal Not Available [facility] [place] [facility] [address] [facility], [place], [address], 12/22/2023 10:53:19 12/18/19 24 12/22/2023 OBSTE TRIC PANEL W/FOU RTH GENER ATION HIV AND HEPAT ITIS C AB W/REF L hemoglobin 12.7 g/dL 11.7-1 5.5 normal Not Available [facility] [place] [facility] [address] [facility], [place], [address], 12/22/2023 10:53:19 12/18/19 24 12/22/2023 OBSTE TRIC PANEL W/FOU RTH GENER ATION HIV AND HEPAT ITIS C AB W/REF L hematocrit 38.7 % 35.0-4 5.0 normal Not Available [facility] [place] [facility] [address] [facility], [address], 12/22/2023 10:53:19 12/18/19 24 12/22/2023 OBSTE TRIC PANEL W/FOU RTH GENER ATION HIV AND HEPAT ITIS C AB W/REF L MCV 91.3 fL 80.0-1 00.0 normal Not Available [facility] [place] [facility] [address] [facility], [place], [address], 12/22/2023 10:53:19 12/18/19 24 12/22/2023 OBSTE TRIC PANEL W/FOU RTH GENER ATION HIV AND HEPAT ITIS C AB W/REF L MCH 30.0 pg 27.0-3 3.0 normal Not Available [facility] [place] [facility] [address] [place], [address], 12/22/2023 10:53:19 12/18/19 24 12/22/2023 OBSTE TRIC PANEL W/FOU RTH GENER ATION HIV AND HEPAT ITIS C AB W/REF L MCHC 32.8 g/dL 32.0-3 6.0 normal Not Available [facility] [place] [facility] [address] [place], [address], 12/22/2023 10:53:19 12/18/19 24 12/22/2023 OBSTE TRIC PANEL W/FOU RTH GENER ATION HIV AND HEPAT ITIS C AB W/REF L RDW 12.0 % 11.0-1 5.0 normal Not Available [facility] [place] [facility] [address] [place], [address], 12/22/2023 10:53:19 12/18/19 24 12/22/2023 OBSTE TRIC PANEL W/FOU RTH GENER ATION HIV AND HEPAT ITIS C AB W/REF L platelet count 143 thous and/u L 140-40 0 normal Not Available [facility] [place] [facility] [address], [place], [address], 12/22/2023 10:53:19 12/18/19 24 12/22/2023 OBSTE TRIC PANEL W/FOU RTH GENER ATION HIV AND HEPAT ITIS C AB W/REF L MPV 11.8 fL 7.5-12 .5 normal Not Available [facility] [place] [facility] [address], [place], [address], 12/22/2023 10:53:19 12/18/19 24 12/22/2023 OBSTE TRIC PANEL W/FOU RTH GENER ATION HIV AND HEPAT ITIS C AB W/REF L absolute neutrophils 5233 cells /uL 1500-7 800 normal Not Available [facility] [place] [facility] [address], [place], [address], 12/22/2023 10:53:19 12/18/19 24 12/22/2023 OBSTE TRIC PANEL W/FOU RTH GENER ATION HIV AND HEPAT ITIS C AB W/REF L absolute lymphocytes 651 cells /uL 850-39 00 low Not Available [facility] [place] [facility] [address], [place], [address], 12/22/2023 10:53:19 12/18/19 24 12/22/2023 OBSTE TRIC PANEL W/FOU RTH GENER ATION HIV AND HEPAT ITIS C AB W/REF L absolute monocytes 273 cells /uL 200-95 0 normal Not Available [facility] [place] [facility] [address], [place], [address], 12/22/2023 10:53:19 12/18/19 24 12/22/2023 OBSTE TRIC PANEL W/FOU RTH GENER ATION HIV AND HEPAT ITIS C AB W/REF L absolute eosinophils 12 cells /uL 15-500 low Not Available [facility] [place] [facility] [address], [place], [address], 12/22/2023 10:53:19 12/18/19 24 12/22/2023 OBSTE TRIC PANEL W/FOU RTH GENER ATION HIV AND HEPAT ITIS C AB W/REF L absolute basophils 31 cells /uL 0-200 normal Not Available [facility] [place] [facility] [address], [place], [address], 12/22/2023 10:53:19 12/18/19 24 12/22/2023 OBSTE TRIC PANEL W/FOU RTH GENER ATION HIV AND HEPAT ITIS C AB W/REF L neutrophils 84.4 % normal Not Available [facility] [place] [facility] [address], [place], [address], 12/22/2023 10:53:19 12/18/19 24 12/22/2023 OBSTE TRIC PANEL W/FOU RTH GENER ATION HIV AND HEPAT ITIS C AB W/REF L lymphocytes 10.5 % normal Not Available [facility] [place] [facility] [address], [place], [address], 12/22/2023 10:53:19 12/18/19 24 12/22/2023 OBSTE TRIC PANEL W/FOU RTH GENER ATION HIV AND HEPAT ITIS C AB W/REF L monocytes 4.4 % normal Not Available [facility] [place] [facility] [address], [place], [address], 12/22/2023 10:53:19 12/18/19 24 12/22/2023 OBSTE TRIC PANEL W/FOU RTH GENER ATION HIV AND HEPAT ITIS C AB W/REF L eosinophils 0.2 % normal Not Available [facility] [place] [facility] [address], [place], [address], 12/22/2023 10:53:19 12/18/19 24 12/22/2023 OBSTE TRIC PANEL W/FOU RTH GENER ATION HIV AND HEPAT ITIS C AB W/REF L basophils 0.5 % normal Not Available [facility] [place] [facility] [address] [facility], [place], [address], 12/22/2023 10:53:19 12/18/19 24 12/22/2023 OBSTE TRIC [...] pregn suzanne. Not Available [facility] [place] [facility] [address] [facility], [place], [address], 12/22/2023 10:53:19 12/18/19 24 12/22/2023 OBSTE TRIC PANEL W/FOU RTH GENER ATION HIV AND HEPAT ITIS C AB W/REF L ABO group O Not Available [facility] [place] [facility] [address] [facility], [place], [address], 12/22/2023 10:53:19 12/18/19 24 12/22/2023 OBSTE TRIC PANEL W/FOU RTH GENER ATION HIV AND HEPAT ITIS C AB W/REF L Rh type RH(D) POSITI VE For addit ional infor cliff up e refer to http: //[facility] emily shah.Que stDia gnost ics.c om/fa q/FAQ 111 (This link is being provi ded for infor martell shen/ educa domi l purpo ses only. ) Not Available [facility] [place] [facility] [address] [facility], [place], [address], 12/22/2023 10:53:19 12/18/19 24 12/22/2023 OBSTE TRIC PANEL W/FOU RTH GENER ATION HIV AND HEPAT ITIS C AB W/REF L RPR (DX) w/refl titer and confirmatory testing NON-RE ACTIVE non-re active normal No labor atory evide nce of syphi lis. If recen t expos ure is suspe cted, submi t a new sampl e in 2-4 weeks . Not Available [facility] [place] [facility] [address] [facility], [place], [address], 12/22/2023 10:53:19 12/18/19 24 12/22/2023 OBSTE TRIC [...] only. ) Not Available [facility] [place] [facility] [address] [facility], [place], [address], 12/22/2023 10:53:19 12/18/19 24 12/22/2023 OBSTE TRIC [...] virus . Not Available [facility] [place] [facility] [address] [facility], [place], [address], 12/22/2023 10:53:19 12/18/19 24 12/22/2023 OBSTE TRIC [...] matio n pleas e refer to http: //[facility] emily shah.bill stdia gnost ics.c om/fa q/FAQ 106 (This link is being provi ded for infor matio nal/ educa domi l purpo ses only. ) The perfo rmanc e of this assay has not been clini leobardo valid ated in patie nts less than 2 years old. Not Available [facility] [place] [facility] [address] [facility], [place], [address], 12/22/2023 10:53:19 12/18/19 24 12/22/2023 OBSTE TRIC [...] a test for HCV RNA (test code 34108 ) is sugge sted. For addit ional infor matio n pleas e refer to http: //[facility] duong stdia gnost ics.c om/fa q/FAQ 22v1 (This link is being provi ded for infor martell shen/ yang oliva purpo ses only. ) Not Available [facility] [place] [facility] [address] [place], [address], 12/22/2023 10:53:19 01/06/20 24 01/06/2024 rapid strep group A, throa t Strep negati ve Not Available [facility] [address], [place], [address], 01/06/2024 13:13:50 01/15/20 24 01/26/2024 QNATA L(R) ADVAN GREGORIO number of fetuses? 1 Not Available [facility] [place] [facility] [address], [place], [address], 01/26/2024 01:26:17 01/15/20 24 01/26/2024 QNATA L(R) ADVAN GREGORIO advanced maternal age? NOT GIVEN Not Available [facility] [place] [facility] [address] [place], [address], 01/26/2024 01:26:17 01/15/20 24 01/26/2024 QNATA L(R) ADVAN GREGORIO abnormal meliton? NOT GIVEN Not Available [facility] [place] [facility] [address] [place], [address], 01/26/2024 01:26:17 01/15/20 24 01/26/2024 QNATA L(R) ADVAN GREGORIO abnormal US? NOT GIVEN Not Available [facility] [place] [facility] [address] [place], [address], 01/26/2024 01:26:17 01/15/20 24 01/26/2024 QNATA L(R) ADVAN GREGORIO personal/fam history? NOT GIVEN Not Available [facility] [place] [facility] [address] [place], [address], 01/26/2024 01:26:17 01/15/20 24 01/26/2024 QNATA L(R) ADVAN GREGORIO interpretati on SEE NOTE This speci men showe d an expec sathish repre senta tion of chrom osome 21, 18, and 13 mater ial. See Elias rivera below . Not Available [facility] [place] [facility] [address] [facility], [place], [address], 01/26/2024 01:26:17 01/15/20 24 01/26/2024 QNATA L(R) ADVAN GREGORIO trisomy 21 (T21) Negati ve Not Available [facility] [place] [facility] [address] [facility], [place], [address], 01/26/2024 01:26:17 01/15/20 24 01/26/2024 QNATA L(R) ADVAN GREGORIO trisomy 18 (T18) Negati ve Not Available [facility] [place] [facility] [address] [facility], [place], [address], 01/26/2024 01:26:17 01/15/20 24 01/26/2024 QNATA L(R) ADVAN GREGORIO trisomy 13 (T13) Negati ve Not Available [facility] [place] [facility] [address] [facility], [place], [address], 01/26/2024 01:26:17 01/15/20 24 01/26/2024 QNATA L(R) ADVAN GREGORIO Y chromosome Not detect ed Not Available [facility] [place] [facility] [address] [facility], [place], [address], 01/26/2024 01:26:17 01/15/20 24 01/26/2024 QNATA L(R) ADVAN GREGORIO Y chr. interpretati on SEE NOTE Consi stent with a femal e fetus . Not Available [facility] [place] [facility] [address] [facility], [place], [address], 01/26/2024 01:26:17 01/15/20 24 01/26/2024 QNATA L(R) ADVAN GREGORIO sex chromosome No aneupl oidy Not Available [facility] [place] [facility] [address] [facility], [address], 01/26/2024 01:26:17 01/15/20 24 01/26/2024 QNATA L(R) ADVAN GREGORIO sex chromosome interp SEE NOTE No appar ent abnor malit y was detec sathish. See Limi tatio ns below . Not Available [facility] [place] [facility] [address] [facility] [place], [address], 01/26/2024 01:26:17 01/15/20 24 01/26/2024 QNATA L(R) ADVAN GREGORIO microdeletio n Not detect ed Not Available [facility] [place] [facility] [address] [facility] [place], [address], 01/26/2024 01:26:17 01/15/20 24 01/26/2024 QNATA L(R) ADVAN GREGORIO microdeletio n interp SEE NOTE No appar ent abnor malit y was detec sathish. See Limi tatio ns below . Not Available [facility] [address] [facility], [address], 01/26/2024 01:26:17 01/15/20 24 01/26/2024 QNATA L(R) ADVAN GREGORIO gestational age(in weeks) 10 Not Available [facility] [place] [facility] [address] [facility], [address], 01/26/2024 01:26:17 01/15/20 24 01/26/2024 QNATA L(R) ADVAN GREGORIO gestational age (in days) 3 Not Available [facility] [place] [facility] [address] [facility], [address], 01/26/2024 01:26:17 01/15/20 24 01/26/2024 QNATA L(R) ADVAN GREGORIO fraction 9.49% Not Available [facility] [place] [facility] [address] [place], [address], 01/26/2024 01:26:17 01/15/20 24 01/26/2024 QNATA L(R) ADVAN GREGORIO laboratory comments SEE NOTE A porti on of the testi ng was perfo rmed at [facility] . Labor atory resul ts and submi tted clini farhan infor matio n revie wed by Tomi Lozano, Ph.D. , [facility]. Not Available [facility] [place] [facility] [address] [place], [address], 01/26/2024 01:26:17 01/15/20 24 01/26/2024 QNATA L(R) [...] origi n. Not Available [facility] [place] [facility] [address] [facility], [place], [address], 01/26/2024 01:26:17 01/15/20 24 01/26/2024 QNATA L(R) [...] sment . Not Available [facility] [place] [facility] [address] [facility], [place], [address], 01/26/2024 01:26:17 01/15/2001/26/2024 QNATA L(R) ADVAN GREGORIO [...] [facility] ns invol goldie in 1p36 [...] by FDA. Not Available [facility] [place] [facility] [address] [facility], [place], [address], 01/26/2024 01:26:17 01/15/20 24 01/26/2024 CHLAM YDIA/ N.RO ORRHO EAE AND T. VAGIN ADILSON RNA, QL TMA chlamydia trachomatis RNA, tma, urogenital NOT DETECT ED not detect ed normal Not Available [facility] [place] [facility] [address] [facility], [place], [address], 01/26/2024 01:26:18 01/15/20 24 01/26/2024 CHLAM YDIA/ N.RO ORRHO EAE AND T. VAGIN ADILSON RNA, QL TMA neisseria gonorrhoeae RNA, tma, urogenital NOT DETECT ED not detect ed normal Not Available [facility] [place] [facility] [address] [facility], [place], [address], 01/26/2024 01:26:18 01/15/20 24 01/26/2024 CHLAM YDIA/ [...] refer to https ://ed ucati on.qu estdi [employer] tics. com/f aq/FA Q154 (This link is being provi ded for infor martell shah/ educa domi l purpo ses only. ) Not Available [facility] [place] [facility] [address] [facility], [place], [address], 01/26/2024 01:26:18 01/15/20 24 01/26/2024 CHLAM YDIA/ N.RO ORRHO EAE AND T. VAGIN ADILSON RNA, QL TMA trichomonas vaginalis RNA, ql tma NOT DETECT ED not detect ed normal For addit ional infor cliff up refer to http: //[facility] emily shah.que stdia gnost ics.c om/ faq/T katie reynolds tma (This link is being provi ded for infor martell shen/ educa domi l purpo ses only. ) Not Available [facility] [place] [facility] [address] [facility], [place], [address], 01/26/2024 01:26:18 01/15/20 24 01/26/2024 DRUG MONIT ORING , PANEL 8 WITH CONFI RMATI ON, URINE alcohol metabolites NEGATI VE NG/mL <500 normal Not Available [facility] [place] [facility] [address] [place], [address], 01/26/2024 01:26:18 01/15/20 24 01/26/2024 DRUG MONIT ORING , PANEL 8 WITH CONFI RMATI ON, URINE amphetamines NEGATI VE NG/mL <500 normal Not Available [facility] [place] [facility] [address] [facility], [place], [address], 01/26/2024 01:26:18 01/15/20 24 01/26/2024 DRUG MONIT ORING , PANEL 8 WITH CONFI RMATI ON, URINE benzodiazepi bony NEGATI VE NG/mL <100 normal Not Available [facility] [place] [facility] [address] [facility], [place], [address], 01/26/2024 01:26:18 01/15/20 24 01/26/2024 DRUG MONIT ORING , PANEL 8 WITH CONFI RMATI ON, URINE buprenorphin e NEGATI VE NG/mL <5 normal Not Available [facility] [place] [facility] [address] [place], [address], 01/26/2024 01:26:18 01/15/20 24 01/26/2024 DRUG MONIT ORING , PANEL 8 WITH CONFI RMATI ON, URINE cocaine metabolite NEGATI VE NG/mL <150 normal Not Available [facility] [place] [facility] [address] [place], [address], 01/26/2024 01:26:18 01/15/20 24 01/26/2024 DRUG MONIT ORING , PANEL 8 WITH CONFI RMATI ON, URINE 6 acetylmorphi ne NEGATI VE NG/mL <10 normal Not Available [facility] [address] [place], [address], 01/26/2024 01:26:18 01/15/20 24 01/26/2024 DRUG MONIT ORING , PANEL 8 WITH CONFI RMATI ON, URINE marijuana metabolite NEGATI VE NG/mL <20 normal Not Available [facility] [address] [place], [address], 01/26/2024 01:26:18 01/15/20 24 01/26/2024 DRUG MONIT ORING , PANEL 8 WITH CONFI RMATI ON, URINE MDMA NEGATI VE NG/mL <500 normal Not Available [facility] [address] [facility], [address], 01/26/2024 01:26:18 01/15/20 24 01/26/2024 DRUG MONIT ORING , PANEL 8 WITH CONFI RMATI ON, URINE opiates NEGATI VE NG/mL <100 normal Not Available [facility] [address] [facility], [address], 01/26/2024 01:26:18 01/15/20 24 01/26/2024 DRUG MONIT ORING , PANEL 8 WITH CONFI RMATI ON, URINE oxycodone NEGATI VE NG/mL <100 normal Not Available [facility] [place] [facility] [address] [place], [address], 01/26/2024 01:26:18 01/15/20 24 01/26/2024 DRUG MONIT ORING , PANEL 8 WITH CONFI RMATI ON, URINE creatinine 89.6 mg/dL > or = 20.0 normal Not Available [facility] [address] [facility], [address], 01/26/2024 01:26:18 01/15/20 24 01/26/2024 DRUG MONIT ORING , PANEL 8 WITH CONFI RMATI ON, URINE pH 8.4 4.5-9. 0 normal Not Available [facility] [address] [place], [address], 01/26/2024 01:26:18 01/15/20 24 01/26/2024 DRUG MONIT ORING , PANEL 8 WITH CONFI RMATI ON, URINE oxidant NEGATI VE mcg/m L <200 normal Not Available [facility] [address] [place], [address], 01/26/2024 01:26:18 01/15/20 24 01/26/2024 DRUG MONIT [...] 10pm EST Not Available [facility] [address] [place], [address], 01/26/2024 01:26:19 01/15/20 24 01/26/2024 CULTU RE, URINE , ROUTI NE culture, urine, routine SEE NOTE CULTU RE, URINE , ROUTI NE Micro Numbe r: [id number] Test Statu s: Final Speci men Sourc e: Urine Speci men Quali ty: Adequ ate Resul t: No Growt h Not Available [facility] [address] [place], [address], 01/26/2024 01:26:19 01/15/20 24 01/15/2024 urina lysis , dipst ick Leukocytes Modera te Not Available [address], [address], 01/15/2024 16:55:16 01/15/20 24 01/15/2024 urina lysis , dipst ick Nitrite negati ve Not Available [address], [address], 01/15/2024 16:55:16 01/15/20 24 01/15/2024 urina lysis , dipst ick Urobilinogen .2 Not Available [address], [address], 01/15/2024 16:55:16 01/15/20 24 01/15/2024 urina lysis , dipst ick Protein Negati ve Not Available [address], [address], 01/15/2024 16:55:16 01/15/20 24 01/15/2024 urina lysis , dipst ick pH 6.0 Not Available [address], [address], 01/15/2024 16:55:16 01/15/20 24 01/15/2024 urina lysis , dipst ick Blood Negati ve Not Available [address], [address], 01/15/2024 16:55:16 01/15/20 24 01/15/2024 urina lysis , dipst ick Specific Ericson 1.020 Not Available [address], [address], 01/15/2024 16:55:16 01/15/20 24 01/15/2024 urina lysis , dipst ick Ketone Negati ve Not Available [address], [address], 01/15/2024 16:55:16 01/15/20 24 01/15/2024 urina lysis , dipst ick Bilirubin Negati ve Not Available [address], [address], 01/15/2024 16:55:16 01/15/20 24 01/15/2024 urina lysis , dipst ick Glucose Negati ve Not Available [address], [address], 01/15/2024 16:55:16 12/11/19 24 12/11/2023 US, obste tric, trans vagin al No observ ation record ed. [email or web address] [address], [place], [address], 12/14/2023 10:33:57 12/18/1912/18/2023 US, obste tric, trans vagin al No observ ation record ed. [email or web address] [facility] [address] [place], [address], 12/23/2023 15:48:00 12/18/19 US, obste tric No observ ation record ed. [email or web address] [facility] [address] [place], [address], 12/18/2023 11:51:05 Result Notes None recorded. Problems Name Problem SNOMED Code Status Onset Date Resolution Date Notes Provider Name and Address Organization Details Recorded Time Tinea corporis 99424604 Active 2022 Rhonda Watkins APRN [address] [place] [address], [address], [employer] 3 15:13:40 Pityrias is versicol or 55852126 Active 2022 Rhonda Watkins APRN [address] [place] [address], [address], [employer] 3 15:59:21 Depressi ve disorder 34712246 Active 2022 Rhonda Watkins APRN [address] [place] [address], [address] 8, [employer] 3 15:59:36 Overacti ve urinary bladder 653880286 Active 2022 Rhonda Watkins APRN [address] [place] [address], [address], [employer] 3 15:59:50 Mixed urinary incontin ence 334576257 Active 2022 Rhonda Watkins APRN [address] [place] [address], [address] 8, [employer] 3 16:01:47 Acute pharyngi tis 003310695 Active 2022 Rhondacorey Watkins APRN [address] [place] [address], [address] 8, [employer] 3 17:50:47 Missed period 56624117 Active 2022 Rhonda Watkins APRN [address] [place] [address], [address] 8, [employer] 3 13:04:58 Nausea and vomiting 27179268 Active 2022 Rhonda Watkins APRN [address] [place] [address], [address] 8, [employer] 3 13:41:40 Constipa tion 58756831 Active 2022 Rhonda Watkins APRN [address] [place] [address], [address] 8, [employer] 3 13:41:44 Pelvic and perineal pain 813179204 Active 2022 Rhonda Watkins APRN [address] [place] [address], [address] 8, [employer] 3 17:12:13 Genital herpes simplex 07025440 Active 2022 Rhonda Watkins APRN [address] [place] [address], [address] 8, [employer] 3 17:12:40 Abdomina l pain 27833551 Active 2022 Rhonda Watkins APRN [address] [place] [address], [address] 8, [employer] 3 09:38:02 Streptoc occal sore throat 37643289 Active [address], [address], [employer] 3 08:58:06 Vaginal irritati on 663293595 Active 2023 Rhonda Watkins APRN [address] [place] [address], [address] 8, [employer] 4 12:47:40 Pregnanc y 67697950 Completed 202308/30/2024 ESTELLE ONOFRE maxine, [employer] 5 14:48:36 Tachycar brannon 9200184 Active 2023 On metoprolo l 12.5mg QD Francy Corey, DO [address] [place] [address], [address], [employer] 4 14:10:47 Tachycar brannon 3653889 Completed 2023 On metoprolo l 12.5mg QD Francydaniel Nicole DO [address] [place] [address], [address] 8, [employer] 4 14:10:47 Sore throat 240809790 Active 2023 NEHEMIAH Sims [address] [place] [address], [address] 8, [employer] 4 14:33:22 Gestatio n period, 9 weeks 087370 Active 2023 NEHEMIAH Sims [address] [place] [address], [address] 8, [employer] 4 14:33:29 Problem Notes None recorded. Procedures Surgical History Date Name Laterality Status Provider Name and Address Organization Details Recorded Time 12/11/19 Date of Last Pap Smear completed Francy Evans [employer] 10/20/2023 13:29:10 Tonsillectomy completed [employer]O [employer] 12/10/2022 14:43:50 hand repair completed BORIS JANE [employer] 07/23/2023 08:28:12 Dilation and Curettage completed TELLO EMMETT [employer]. 12/09/2023 10:10:06 Imaging Results None recorded. Procedure Notes None recorded. Medical Equipment None Reported. Allergies Allergen ID Allergen Name Allergen Category Reaction Reaction Severity Criticality Documentation Date Start Date Code Code System Note Provider Name and Address Organization Details Recorded Time 85390 Product containin g penicilli n (product) medicatio n Not available Not available Not available 12/10/2022 50684 8001 SNOMED TELLOHapticom SHERMAN [employer] 3 14:48:49 83922 Augmentin medicatio n Not available Not available Not available 12/10/2022 53168 2 RxNorm [employer]. 3 14:48:54 Medications Name Sig Start Date [...] Updated DateTime 12/11/2023 167.64 cm TELLO SHERMAN [employer] 12/11/2023 16:30:09 Date Recorded Body weight Provider Name an d Address Organization Details Last Updated DateTime 12/16/2023 41877.552688 g Francy Nicole DO [address] [place] [address], [address], [employer]. 12/22/2023 12:17:21 Date Recorded Body height Body mass index (BMI) Systolic And Diastolic Provider Name and Address Organization Details Last Updated DateTime 12/16/2023 167.64 cm 22.2 kg/m2 110/70 mm[Hg] Mychal Parnell [employer] 12/16/2023 09:55:12 Date Recorded Body weight Provider Name an d Address Organization Details Last Updated DateTime 12/18/2023 62730.20800 g Geno BREWSTER [facility] [place], [address], [employer]. 12/18/2023 11:47:26 Date Recorded Body height Body mass index (BMI) Provider Name and Address Organization Details Last Updated DateTime 12/18/2023 167.64 cm 22.1 kg/m2 TELLO SHERMAN [employer] 12/18/2023 11:43:41 Date Recorded Body height Body mass index (BMI) Body weight Oxygen saturation Oxygen saturation in Arterial blood by Pulse oximetry Heart rate Body temperature Systolic And Diastolic Provider Name and Address Organization Details Last Updated DateTime 167.64 cm 22.3 kg/m2 47377.7 5 g 98 % 98 % 81 /min 98.3 [degF] 113/73 mm[Hg] Shani Bowser [employer]. 13:12:47 Date Recorded Body height Provider Name an d Address Organization Details Last Updated DateTime 01/15/2024 167.64 cm Mychal Parnell [employer] 01/15/2024 16:54:15 Date Recorded Body weight Systolic And Diastolic Provider Name and Address Organization Details Last Updated DateTime 01/15/2024 41609.53245 g 112/62 mm[Hg] Ean Cruz [employer] 01/15/2024 16:59:36 Social History Question Answer Notes LastModified by Organizat ion Details LastModified Time Tobacco Smoking Status Former Smoker BORIS goodman, [employer]. 07/23/2023 08:27:54 What Is Your Level Of [...] Or The Highest Degree You Have Received? [id number] Information not available 12/10/2022 Who Is Your Employer? [employer] Information not available 12/10/2022 Have There Been Any Changes To Your Family Or Social Situation? No Information not available 12/10/2022 When Did You Quit Smoking? 1-5yearssincheryl Information not available 07/23/2023 Which Of Your Hands Is Dominant? Right Information not available 12/10/2022 What Was The Date Of Your Most Recent Tobacco Screening? 01/15/2024 Information not available 01/15/2024 What Is Your Current Pack Years? 10packyears [email or web address] Information not available 07/23/2023 Have You Ever [...] used smokeless tobacco? Never used smokeless tobacco [place] [address] Information not available 07/23/2023 Are you currently employed? Yes Information not available 12/10/2022 Do you have transportation difficulties? No Information not available 12/10/2022 Are you able to walk independently without assistance or assistive devices? [employer] Information not available 12/10/2022 Do you have difficulty doing errands alone? No Information not available 12/10/2022 What is your occupation? [employer] Information not available 12/10/2022 Do you have difficulty dressing, bathing, grooming, or toileting? No Information not available 12/10/2022 Do you [...] IPV 2 completed TELLO EMMETT SHERMAN null, [employer] 12/10/2022 14:42:16 MMR 2 completed TELLO EMMETT SHERMAN null, [employer] 12/10/2022 14:42:16 COVID-19 vaccine, vector-nr, rS-Ad26, PF, 0.5 mL 1 completed TELLO EMMETT SHERMAN null, [employer] 12/10/2022 14:42:16 Tdap 0 completed TELLOHapticom SHERMAN null, [employer] 12/10/2022 14:42:16 varicella 1 completed TELLO [employer] null, [employer] 12/10/2022 14:42:16 HPV, quadrivalent 1 completed TE[employer]OH[employer] null, [employer] 12/10/2022 14:42:16 Hep A, ped/adol, 2 dose 1 completed TELLOHapticom SHERMAN null, [employer] 12/10/2022 14:42:16 Hep A, ped/adol, 2 dose 0 completed TELLOHapticom SHERMAN null, [employer] 12/10/2022 14:42:16 DTaP, unspecified formulation 2 completed TELLOHapticom SHERMAN null, [employer] 12/10/2022 14:42:16 Influenza, split virus, quadrivalent, PF completed Francy goodman [facility], [place] 09/22/2023 12:41:20 Past Encounters Encounter ID Performer Location Encounter Start Date Encounter Closed Date Diagnosis/Indication Diagnosis SNOMED-CT Code Diagnosis ICD10 Code Diagnosis IMO Codes Diagnosis Note [id number] Rhonda Odeniam [facility] [place] [address] 12/10/2022 14:38:30 12/10/2022 16:46:26 Pityriasis versicolor 67540331 B36.0 Depressive disorder 3548 9007 F32.A Overactive urinary bladder 557981509 N32.81 Mixed urin glenn incontinence 129865622 N39.46 Screening for malignant neoplasm of cervix 508044507 Z12.4 [id number] Rhonda June [facility] [place] [address] 01/16/2023 14:12:44 01/16/2023 15:00:55 Vaginal irritation 106403607 N89.8 Acute pharyngitis 136455 003 J02.9 [id number] Rhonda Watkins [place] [address] [place] [address] 02/04/2023 07:51:37 02/05/2023 10:48:21 Pelvic and perineal pain 131817141 R10.2 Genital he rpes simplex 57980449 A60.9 [id number] Yolette Sotelo [address] [address] 04/18/2023 10:23:36 04/18/2023 11:55:33 Acute pharyngitis 011893849 J02.9 Influenza caused by Influenza A virus 282906614 J09.X2 off work until until Thursday [id number] Bharati Tong [address] [address] 04/21/2023 08:50:39 04/21/2023 09:56:48 Missed period 92011092 N92.5 Influenza caused by Influenza A virus 673724472 J09.X2 [id number] BG CATALAN, [place] [address] [place] [address] 07/23/2023 08:09:18 07/23/2023 09:21:43 Viral screening 409871225 Z11.59 Streptococ farhan sore throat 39437864 J02.0 [id number] Rhondacorey Odennikole [facility] [address] [place] [address] 09/22/2023 12:09:54 09/22/2023 13:01:44 Vaginal irritation 352196811 N89.8 [id number] Rhonda June [facility] [address] [place] [address] 10/20/2023 13:11:29 10/20/2023 15:12:45 Vaginal irritation 041357291 N89.8 [id number] TAMIA WILL MD [facility] [address] [place] [address] 12/09/2023 09:32:48 12/09/2023 10:44:16 Missed period 18336667 N92.5 Intrauteri ne 88655791 Z34.90 [id number] TAMIA WILL MD [facility] [address] [place] [address] 12/11/2023 16:01:47 12/11/2023 16:33:10 [id number] Francy Nicole DO [facility] [address] [place] [address] 12/16/2023 09:48:15 12/16/2023 16:56:35 37858642 Z33.1 Dating US scheduled in 2 days Tachycardia 5453348 R00. 0 Prescribed metoprolol 25mg QD, has been taking 12.5 [id number] TAMIA WILL MD [facility] [address] [place] [address] 12/18/2023 10:55:41 12/18/2023 11:59:42 Intrauterine 15563537 Z34.90 [id number] Jocelyn Finney, NEHEMIAH [facility] - [address] [place] [address] 01/06/2024 12:33:43 01/06/2024 15:00:47 Sore throat 337875188 J02.9 Acute pharyngitis 948109 003 J02.9 Gestation period, 9 weeks 836491 Z3A.09 Normal weight 48667835 Z 68.22 [id number] Francy Nicole DO [facility] [address] [facility] [place] [address] 01/15/2024 16:31:36 01/15/2024 17:20:47 16014549 Z33.1 Health Concerns Section Related Observation LastModified by Organization Detai ls LastModified Time None Recorded Concern Status LastModified by Organization Details LastModified Time None Recorded Advance Directives Directive None Recorded Payers Insurance Date Sequence Insurance Name Policy Number Policy Zaidi Covered Member ID Zaidi Member ID Guarantor Name 06/13/2024 1 [employer] [place] ([place]) [facility] [id number] [facility] 06/01/2023 1 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 SLIDING FEE SCHEDULE - DISCOUNT [facility] 12/16/2023 1 *SELF PAY* Re [facility] 12/16/2023 SLIDING FEE SCHEDULE - DISCOUNT [facility] 03/07/2024 2 *SELF PAY* [facility] 12/16/2023 MEDICAID-[facility] WRAP BILLING (MEDICAID) [facility] [id number] [facility] Notes Date Note Type Note Provider Name and Address Organization Details Recorded Time 12/11/2023 text/html ROS as noted in the HPI Patient appears to have a viral syndrome. [...] She is given warnings. TAMIA WILL MD [address] [place] [address], [address], [employer]. 12/11/2023 16:35:43 12/16/2023 text/html ROS as noted in the HPI This is a 23 y/o at 6w1d [...] visit in two days. Francy Nicole DO [address] [place] [address], [address], [employer] 12/22/2023 12:21:03 12/18/2023 text/html Generic HPI TemplateReported by Patient TAMIA WILL MD [address] [place] [address], [address], [employer], [employer]. 12/18/2023 11:52:41 01/06/2024 text/html Sore ThroatRepor sathish by PatientHPIFor severity, patient reportsworsening. For context, patient reportsothers with similar symptoms(daughter has strep.). For associated symptoms, patient reportscoughbut reportsno fever,no swollen glands,no dysphagia,no nausea,no vomiting,no appetite loss,no headache,no itching throat,no choking,no globus sensation,no lethargy,no rash,no abdominal pain,no conjunctivitis,no drooling,no stridor,no dyspnea,no stiff neck, andno muffled voice. For location, patient reportsbilateral. For onset/timing, patient reportssudden. For duration, patient reportsstarted 3 day(s) ago. Jocelyn Finney, [employer]OUNTS PAYABLE COORDINATOR [address] [place], [address], [employer] 01/06/2024 14:37:51 01/15/2024 text/html ROS as noted in the HPI This is a 23 y/o at 10w4d who presents for OB visit. She was recently seen in the ED for nausea and vomiting and was diagnosed with a viral GI illness. She is doing better today and denies nausea or vomiting. She denies abdominal pain or vaginal bleeding. 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 Francy Nicole, [address] [place], [address], [employer] 01/16/2024 14:11:27 OBGyn Episode Ob Episode Information Episode Created Date Number of Fetuses Patient Bloodtype Patient rh Status Prepregnancy Weight lbs Domestic Partner Domestic Partner Phone Father Name [employer] Status 12/11/19 23 1 CLOSED Fetus Data [...] Post Complications Tubal Sterilization Discharge Date Comments 1 Discharge Information Feeding Method Contraceptive Method Maternal HG B and HCT Levels Ob Episode Information Episode Created Date Number of Fetuses Patient Bloodtype Patient rh Status Prepregnancy Weight lbs Domestic Partner Domestic Partner Phone Father Name [employer] Detailer Status 12/11/19 23 1 CLOSED Fetus Data [...] Domestic Partner Domestic Partner Phone Father Name [employer] Detailer Status 12/18/19 24 1 CLOSED Fetus Data First Name Last Name Admitted to NICU Weight (g) Sex Living Outcome Pediatric Complications Fetus ID Race Codes Race Delivery Type 2489.94 61138 F true Full Term 8847 2106-3 White Problems Problem Notes Problem Name Start Date End Date Resolution Snomed Code Not e Tachycardia 12/22/2023 1476090 On meto prolol 12.5mg QD Cole Calculation Initial Cole Date Initial Exam Date Initial Exam Provider Initial Ultrasound Date Last Menstrual Period Date Ultra Sound Weeks Gestation 08/09/2023 12/18/2023 [id number] 12/18/2023 11/03/2023 6 Eighteen To Twenty Week Cole Update Ultra Sound Date Fundal Height At Umbil Quickening Date Ultra Sound Latest Weeks Gestation Final Cole Confirmed By Final Cole Confirmed Date Final Cole Date Ultra Sound Latest Days Gestation 0 [id number] 12/18/2023 08/09/19 25 0 Pre- Flowsheet Flowsheet Date 12/16/2023 Zepeda Score Blood Edema Fundus Height Fundus Units Glucose Ketones Leukocytes Nitrite Labor Signs Protein Cervic Dilation Cervic Effacement Cervic Station Type Weight in lbs Pre/Post Dialysis Refused With clothes 137.260772688592 BP Diastolic BP Location Tested BP Systolic [...] in lbs Pre/Post Dialysis Refused With clothes 137.987508348627 BP Diastolic BP Location Tested BP Systolic BP Type sitting Fetus Heart Rate Present Fetus Movement Comments Scan 6.3 week CRL. Labs toda y, 4 weeks Flowsheet Date 01/06/2024 Zepeda Score Blood Edema Fundus Height Fundus Units Glucose Ketones Leukocytes Nitrite Labor Signs Protein Cervic Dilation Cervic Effacement Cervic Station Type Weight in lbs Pre/Post Dialysis Refused With clothes 138.786072310454 BP Diastolic BP Location Tested BP Systolic BP Type 73 R arm 113 sitting Fetus Heart Rate Present Fetus Movement Comments Flowsheet Date 01/15/2024 Zepeda Score Blood Edema Fundus Height Fundus Units Glucose Ketones Leukocytes Nitrite Labor Signs Protein Cervic Dilation Cervic Effacement Cervic Station none neg Type Weight in lbs Pre/Post Dialysis Refused With clothes 136.291436150323 BP Diastolic BP Location Tested BP Systolic [...]
--- OUTSIDE RECORDS SUMMARY | 2025-05-07 17:08 | XMS_ITS | Encounter Summary ---
Author Organization [employer] ([place], [place], [place], [place]) Address [address] [place] [address] Care Team Providers Care Cylinder Block Mechanic Name Role Phone Padmini Wyatt APRN Primary Care Provider [phone] Encounter Details Date Type Department Care Team [...] Date Guerrero rded Speak language other than Ghanaian at home Not on file 08/13/2023 Want [...] on filedocumented in this encounter Care Teams Cylinder Block Mechanic Relationship Specialty Start Date End Date Padmini Wyatt APRN [address] [place] [address] PCP - General Nurse Practitioner 04/12/25 documented as of this encounter
--- OUTSIDE RECORDS SUMMARY | 2025-05-07 17:08 | XMS_ITS | Encounter Summary ---
Author Organization [employer] ([place], [place], [place], [place]) Address [address] [place] [address] Care Team Providers Care Respiratory Technician Name Role Phone Molly Louis MD Primary Care Provider [phone] Padmini Wyatt APRN Primary Care Provider [phone] Encounter Details Date Type Department Care Team (Late st Contact Info) Description 04/14/2024 Outside Orders [facility] Admitting [address] [place] [address] Silverio Tam, PA [address] [facility] [address] [place] [id number] Blood in stool (Primary Dx) Social History [...] Date Guerrero rded Speak language other than Macedonian at home Not on file 08/13/2023 Want [...] 87(H) <=49 ug/g 04/19/2024 11:26 PM EDT [employer] Comment: REFERENCE INTERVAL: Calprotectin, Fecal by Immunoassay Less than 50 ug/g.........Normal 50-120 ug/g...............Borderline elevated, test should be re-evaluated in 4-6 weeks. 121 ug/g or greater.......Elevated Performed By: [employer] [address] [place] [address] Wood Boatbuilder: Wilber Pardo MD, PhD CLIA Number: [id number] Stool 04/14/2024 11:0 6 AM EDT 04/14/2024 11:47 AM EDT us [facility] - GENERAL ORDERAB LES Final Result Performing Organization Address [facility]/State/[facility] Co de Phone Number [employer] [address] [place] [address], [facility] [phone] documented in this encounter Visit Diagnoses Diagnosis Blood in stool- Primary documented in this encounter Care Teams Respiratory Technician Relationship Specialty Start Date End Date Molly Louis MD [address] [place] [address] PCP - General 08/22/24 04/11/25 Padmini Wyatt APRN [address] [address] PCP - General Nurse Practitioner 04/12/25 documented as of this encounter
--- OUTSIDE RECORDS SUMMARY | 2025-05-07 17:08 | XMS_ITS | Encounter Summary ---
Author Organization [employer] ([place], [place], [place], [place]) Address [address] [place] [address] Care Team Providers Care Paper Tube Machine Operator Name Role Phone Molly Louis MD Primary Care Provider [phone] Padmini Wyatt APRN Primary Care Provider [phone] Encounter Details Date Type Department Care Team (Late st Contact Info) Description 08/22/2024 Outside Orders [facility] Admitting [address] [place] [address] Silverio Tam, PA [address] [address] [place] [id number] Esophageal reflux (Primary Dx) Social History Tobacco [...] EIA Negative Negative 08/23/2024 10:57 PM EST [employer] Comment: Performed By: [facility] [address] [place] [address] Labor Supervisor: Wilber Pardo MD, PhD CLIA Number: [id number] Stool 08/22/2024 11:3 5 AM EST 08/22/2024 11:36 AM EST [facility] - GENERAL ORDERAB LES Final Result [facility] [address] [phone] * Calprotectin, Fecal by Immunoassay(SENDOUT) (08/22/2024 11:35 AM EST) Calprotectin, Fecal 26 <=49 ug/g 08/26/2024 8:14 AM EST [employer] Comment: REFERENCE INTERVAL: Calprotectin, Fecal by Immunoassay Less than 50 ug/g........Normal 50-120 ug/g..............Borderline elevated, test should be re-evaluated in 4-6 weeks. 121 ug/g or greater......Elevated Performed By: [facility] [address] [place] [address] Labor Supervisor: Wilber Pardo MD, PhD CLIA Number: [id number] Stool 08/22/2024 11:3 5 AM EST 08/22/2024 11:36 AM EST [facility] - GENERAL ORDERAB LES Final Result [employer] [address] [place] [address], [facility] [phone] documented in this encounter Visit Diagnoses Diagnosis Esophageal reflux- Primary documented in this encounter Care Teams Paper Tube Machine Operator Relationship Specialty Start Date End Date Molly Louis MD [address] [place] [address] [address] [place] [address] PCP - General 08/22/24 04/11/25 Padmini Wyatt, TRISTAN [address] [address] PCP - General Nurse Practitioner 04/12/25 documented as of this encounter
--- OUTSIDE RECORDS SUMMARY | 2025-05-07 17:08 | XMS_ITS | Referral Summary ---
Author Organization [employer] ([place], [place], [place], [place]) Address [address] [place] [address] Care Team Providers Care Maintenance Planner Name Role Phone Padmini Wyatt APRN Primary Care Provider [phone] Encounters Date Type Department Care Team Description 04/12/2025 Travel 04/12/2025 12:02 PM EDT - 04/12/2025 11:59 PM EDT Hospital Encounter [facility] Procedure Lab [address] [place] [address] Syncope Discharge Disposition: Home or [...] on file Medical Devices Implanted Type Area Communications Instructor Device Identifier Shelf Expiration Date Model / Serial / Lot K-Wire [id number] - [id number] Implanted:Qty: 1 on 08/04/2022 by Rex Rene MD at [facility] IMPLANTS Right: Hand [employer] [id number] / / Wire K-Wire 1.6mm [id number] - [id number] Implanted:Qty: 1 on 08/04/2022 by Rex Rene [...] from Last 3 Months Insurance [place] Advance Directives For more information, please contact: [phone] * Full Code (Latest Code Status on File) Date Activated Date Inactivated Comments 08/04/2022 6:03 AM 08/04/2022 11:35 AM Care Teams Maintenance Planner Relationship Specialty Start Date End Date Padmini Wyatt, INTERLIBRARY LOAN SPECIALIST [address] [address] PCP - General Nurse Practitioner 04/12/25
--- OUTSIDE RECORDS SUMMARY | 2025-05-07 17:09 | XMS_ITS | Data Portability ---
Author Organization [facility] & MELINA Brower ADMIN Address [address] [place] [id number] Care Team Providers Care Party Plan Demonstrator Name Role Phone MOLLY BOLTON Primary Care Provider [phone] Assessment No assessment recorded. Plan of Treatment Reminders Order Date Submit Date Provider Last Modified By Organization Details Last Modified Time Details Appointments [facility] 60 2024 11:30A M THOMAS KIRBYP Not available Not available Not available Lab urinalysi s, dipstick 2023 024 [email or web address] [facility]- Floor 2, [address], [address], [address], [place], [address], 12/14/2023 13:09:11 culture, urine 2023 024 [facility] (Add On Labs Only), [address] [place] [address] [place], [address], 12/14/2023 19:07:28 Referral behaviora health referral - Anxiety not respondin g to buspirone . patient. Counselin g and medicatio n managemen t. 2023 024 KEATON Galeas Pm[facility], [address] [place], [address], 04/05/2024 14:52:37 dermatolo gist referral 2023 024 [email or web address] [facility], [address] [place] [address], [address], 10/20/2023 12:02:18 Procedures None recorded. Surgeries None recorded. Imaging None recorded. Medication Orders doxylamin e 10 mg-pyrido xine (vit B6) 10 mg tablet,de layed release [address] [facility], [address] [place] [address] [address], [place], [place], [id number], 12/14/2023 11:36:15 cephalexi n 500 mg tablet [address] [facility], [address] [place] [address] [address], [place], [place], [id number], 02/02/2024 08:44:10 ondansetr on 4 mg disintegr ating tablet [address] [facility], [address] [place] [address] [address], [place], [id number], 12/14/2023 11:38:18 labetalol 100 mg tablet [address] [facility], [address] [place] [address] [address], [place], [place], [id number], 02/02/2024 08:44:37 Patient TargetsNo targets recorded. Patient Instructions Encounter Date Encounter Id Patient Instructions Last Modified By Organization Details Last Modified Time 09/22/2023 [id number] Follow-up for yearly exam 02/2024 and prn [email or web address] Not available 09/22/2023 18:44:56 12/14/2023 [id number] Follow-up prn [email or web address] Not available 12/14/2023 21:37:32 02/02/2024 [id number] Follow-up prn (patient's current symptoms to be managed by cardiology and OB/MFM). 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 Referring Physician: [...] 2 - 3 MONTH S Not Available [facility] (Pre-Op Clinic) [address] [place] [address] [place], [address], 12/02/2023 17:18:42 12/02/19 24 12/02/2023 HCG BETA QUANT ITATI VE note Unles s other juan noted testi ng perfo rmed at: [facility] [address] [place] [address] Micah plascencia MD Not Available [facility] (Pre-Op Clinic) [address] [place] [address] [place], [address], 12/02/2023 17:18:42 12/14/19 24 12/14/2023 CULTU RE URINE W PRESU MP ID results [facility] 12-14 912 No Signi fican t Growt h at 1 Day [facility] 2024- 05-22 711 No Signi fican t Growt h at 2 Days Not Available [facility] ([facility]-Op [facility]) [address] [place], [address], 12/16/2023 07:13:14 12/14/19 24 12/14/2023 CULTU RE URINE W PRESU MP ID note Unles s other juan noted testi ng perfo rmed at: [facility] [address] [place] [address] Micah plascencia MD Not Available [facility] ([facility]-Op [facility]) [address] [place] [address] [place], [address], 12/16/2023 07:13:14 12/14/19 24 12/14/2023 urina lysis , dipst ick Leukocytes (reference range) small Not Available [facility] Floor 2, [address] [facility] [address] [place] [address], [address], 12/14/2023 11:20:55 12/14/19 24 12/14/2023 urina lysis , dipst ick Nitrite (reference range:) negati ve Not Available [facility]- Floor 2, [address] [place] [address], [address], 12/14/2023 11:20:55 12/14/19 24 12/14/2023 urina lysis , dipst ick Urobilinogen (reference range) 0.2 Not Available [facility]- Floor 2, [address] [place] [address], [address], 12/14/2023 11:20:55 12/14/19 24 12/14/2023 urina lysis , dipst ick Protein (reference range) 30 Not Available [facility]- Floor 2, [address] [facility] [address] [place] [address], [address], 12/14/2023 11:20:55 12/14/19 24 12/14/2023 urina lysis , dipst ick pH (reference range 5-8.5) 5.5 Not Available [facility]- Floor 2, [address] [facility], [place], [address], 12/14/2023 11:20:55 12/14/19 24 12/14/2023 urina lysis , dipst ick Blood (reference range:) negati ve Not Available [facility]- Floor 2, [address] [facility], [place], [address], 12/14/2023 11:20:55 12/14/19 24 12/14/2023 urina lysis , dipst ick Specific [place] (reference range) 1.030 Not Available [facility]- Floor 2, [address] [facility], [place], [address], 12/14/2023 11:20:55 12/14/19 24 12/14/2023 urina lysis , dipst ick Ketone (reference range) modera te Not Available [facility]- Floor 2, [address] [facility], [place], [address], 12/14/2023 11:20:55 12/14/19 24 12/14/2023 urina lysis , dipst ick Bilirubin (reference range) small Not Available [facility]- Floor 2, [address] [facility], [place], [address], 12/14/2023 11:20:55 12/14/19 24 12/14/2023 urina lysis , dipst ick Glucose (reference range) negati ve Not Available [facility]- Floor 2, [address] [facility], [place], [address], 12/14/2023 11:20:55 12/14/19 24 12/14/2023 urina lysis , dipst ick Color (reference range: yellow-brown ) Brown Not Available [facility]- Floor 2, [address], [place], [address], 12/14/2023 11:20:55 11/20/19 24 11/20/2023 CT, abdom en + pelvi s, w/ contr ast No observ ation record ed. [address] Registration [address] [place], [address], 11/20/2023 22:38:19 01/12/20 24 01/12/2024 XR, chest No observ ation record ed. [address] (Registration ) [address] [place] [address] [place], [address], 01/12/2024 13:53:47 01/12/20 24 01/12/2024 US, obste tric No observ ation record ed. [address] (Registration ) [address] [place] [address] [place], [address], 01/12/2024 17:05:57 01/20/20 24 01/20/2024 elect rocar diogr am No observ ation record ed. [address], [place], [address], 01/21/2024 12:30:49 01/22/20 24 01/22/2024 imagi ng inter preta tion No observ ation record ed. [email or web address] [address], [place], [address], 01/25/2024 11:42:05 01/22/20 24 01/22/2024 imagi ng inter preta tion No observ ation record ed. [email or web address] [address], [place], [address], 01/25/2024 11:41:58 02/06/20 24 02/05/2024 elect rocar diogr am, routi ne ECG, 12 leads min No observ ation record ed. [address], [place], [place], [address], 02/07/2024 14:15:54 04/27/2004/27/2024 rhyth m strip , EKG* No observ ation record ed. [email or web address] [facility] [address], [place], [address], 04/28/2024 15:07:12 07/27/19 25 07/27/2024 imagi ng inter preta tion No observ ation record ed. [email or web address] [facility] [address], [place], [place], [address], 07/28/2024 10:45:22 07/27/19 25 07/27/2024 elect harris chew am No observ ation record ed. [facility] [address], [place], [address], 07/28/2024 10:45:06 Result Notes None recorded. Problems Name Problem SNOMED Code Status Onset Date Resolution Date Notes Provider Name and Address Organization Details Recorded Time Gilbert's syndrome 80501436 Active 2022 Not Available [facility] 4 05:51:07 Gallstone 680400660 Active 2022 Not Available [facility] 4 05:51:07 Fracture of hand 20510502 Active 2022 Had two pins placed of the fifth metatar petr. Not Available [facility] 4 05:51:07 Sore throat 987288310 Active 2022 Not Available [facility] 4 05:51:07 Hematochezia 761934201 Active 2022 Not Available [facility] 4 05:51:07 Diarrhea 38262839 Active 2022 Not Available [facility] 4 05:51:07 Nausea 498659260 Active 2022 Not Available [facility] 4 05:51:07 Generalized abdominal pain 268799913 Active 2022 Not Available [facility] 4 05:51:07 Problem Notes None recorded. Procedures Surgical History Date Name Laterality Status Provider Name and Address Organization Details Recorded Time 07/31/19 24 laparoscopic cholecystectomy completed Teresa Garrett [place] - [facility] [place] 08/03/2023 09:25:16 11/09/19 23 Date of Last Pap Smear completed Deb Clark [place] - [facility] [place] 05/28/2023 14:21:22 07/27/19 23 Other completed Shani KRISHNAN - [facility] - [place] [facility] [place] 08/20/2023 13:45:01 03/03/20 22 EGD/Endoscopy completed Kymberly Gar [place] - [facility] [place] 05/19/2023 08:29:18 07/27/19 02 ENT Surgery completed Shani Nailso [place] - [facility] [place] 08/20/2023 13:45:01 07/27/19 01 ENT Surgery completed Shani Nailso [place] - [facility] - [place] [facility] [place] 08/20/2023 13:45:01 Tonsillectomy completed Shani KRISHNAN - [facility] [place] 07/08/2023 12:32:45 Dilation and Curettage completed Deb Clark [place] - LP[facility] [place] 01/26/2024 09:25:24 Imaging Results None recorded. Procedure Notes None recorded. Medical Equipment None Reported. Allergies Allergen ID Allergen Name Allergen Category Reaction Reaction Severity Criticality Documentation Date Start Date Code Code System Note Provider Name and Address Organization Details Recorded Time 246812 cinnamon preparati on food,medi cation other severe Not available 12/09/2023 49370 5 RxNorm throa t aurelio s Deb Montanae null, [place] - LP[facility] [place] 4 09:50:32 13016 Augmentin medicatio n rash Not available Not available 09/18/2022 43437 2 RxNorm Anmol Pelayo null, [place] - [facility] [place] [facility] [place] 3 12:59:17 49665 Product containin g penicilli n (product) medicatio n Not available Not available Not available 09/18/2022 36355 8001 SNOMED Anmol Pelayo [facility], [place] - [facility] - [place] [facility] [place] 3 12:59:25 Medications Name Sig Start Date [...] Updated DateTime 4 162.56 cm 24.6 kg/m2 68673.1 5 g 98.2 [degF] 99 % 99 % 98 /min 110/80 mm[Hg] Francy KRISHNAN MELINA [facility] [place] 4 15:41:55 Date Recorded Body height Body mass index (BMI) Body weight Body temperature Oxygen saturation Oxygen saturation in Arterial blood by Pulse oximetry Heart rate Systolic And Diastolic Provider Name and Address Organization Details Last Updated DateTime 4 162.56 cm 23.6 kg/m2 21572.8 7 g 98.5 [degF] 97 % 97 % 88 /min 140/80 mm[Hg] Francy SUMMERS [facility] [place] 4 10:46:22 Date Recorded Body height Body mass index (BMI) Body weight Body temperature Oxygen saturation Oxygen saturation in Arterial blood by Pulse oximetry Heart rate Systolic And Diastolic Provider Name and Address Organization Details Last Updated DateTime 4 162.56 cm 20.8 kg/m2 23349.6 8 g 98.6 [degF] 99 % 99 % 100 /min 110/70 mm[Hg] Francy SUMMERS [facility] [place] 4 08:35:15 Date Recorded Body height Body mass index (BMI) Body weight Body temperature Oxygen saturation Oxygen saturation in Arterial blood by Pulse oximetry Heart rate Systolic And Diastolic Provider Name and Address Organization Details Last Updated DateTime 4 162.56 cm 20.4 kg/m2 82255.4 9 g 98.7 [degF] 100 % 100 % 76 /min 110/60 mm[Hg] Francy SUMMERS [facility] [place] 4 08:35:40 Date Recorded Body height Body mass index (BMI) Body weight Body temperature Oxygen saturation Oxygen saturation in Arterial blood by Pulse oximetry Heart rate Systolic And Diastolic Provider Name and Address Organization Details Last Updated DateTime 4 162.56 cm 20.8 kg/m2 02159.6 8 g 98.8 [degF] 99 % 99 % 98 /min 100/60 mm[Hg] Francy SUMMERS [facility] [place] 4 09:07:24 Social History Question Answer Notes LastModified by [employer] Details LastModified Time Tobacco Smoking Status Former Smoker Francy goodman, [place] SUMMERS [facility] [place] 03/17/2023 09:23:30 Do You Have An Advance Directive? No Information not available 05/28/2023 Are You Blind Or Do You Have Difficulty Seeing? No [email or web address] Information not available 05/28/2023 When Did You Quit Smoking? 1-5yearssinc elastcigaret te Information not available 08/13/2023 Are You Passively Exposed To Smoke? No [email or web address] Information not available 05/28/2023 How Many Years Have You Smoked Tobacco? 12 [email or web address] Information not available 03/17/2023 Sex: Female Functional Status Question Answer Note LastModified by [employer] Details LastModified Time Do you use any illicit or recreational drugs? No [email or web address] Information not available 03/17/2023 Do you or have you ever used any other forms of tobacco or nicotine? Yes Information not available 08/13/2023 What is your level of alcohol consumption? None [email or web address] Information not available 03/17/2023 Do you or have you ever used e-cigarettes or vape? Current user of electronic cigarettes Information not available 08/13/2023 What is your exercise level? Occasional [email or web address] Information not available 05/28/2023 Mental Status None [...] 04/28/2023 16:28:41 Mother Disorder of thyroid gland [email or web address] Not available 2023 13:44:57 Mother Disease of liver [email or web address] Not available 2023 11:15:11 Sister Heart disease [email or web address] Not available 2023 13:44:57 Unspecified Relation Family [...] Recorded Time IPV 2 completed Not Available [facility] 08/05/2023 05:51:08 MMR 2 completed Not Available [facility] 08/05/2023 05:51:08 COVID-19 vaccine, vector-nr, rS-Ad26, PF, 0.5 mL 1 completed Not Available [facility] 08/05/2023 05:51:08 Tdap 0 completed Not Available [facility] 08/05/2023 05:51:08 varicella 1 completed Not Available [facility] 08/05/2023 05:51:08 HPV, quadrivalent 1 completed Not Available [facility] 08/05/2023 05:51:08 Hep A, ped/adol, 2 dose 1 completed Not Available [facility] 08/05/2023 05:51:08 Hep A, ped/adol, 2 dose 0 completed Not Available [facility] 08/05/2023 05:51:08 DTaP, unspecified formulation 2 completed Not Available [facility] 08/05/2023 05:51:08 Past Encounters Encounter ID Performer Location Encounter Start Date Encounter Closed Date Diagnosis/Indication Diagnosis SNOMED-CT Code Diagnosis ICD10 Code Diagnosis IMO Codes Diagnosis Note [id number] Marizol Paez MD [facility] [place] [address] [facility] [place] [id number] 09/18/2022 12:53:09 09/18/2022 13:34:47 Pain in throat 830764867 R07.0 Strep swab in the office today was negative. Suggest this is a viral issue and will take time to resolve. Nausea 357693739 R11.0 Likely due to her underlying illness. Son also recently diagnosed with a viral illness. She understand s the importance of pushing fluids. Gilbert's syndrome 57218 000 E80.4 Pityriasis versicolor 56 932374 B36.0 Suggested OTC lamisil cream. [id number] BOOKER OLIVARES [facility]- Floor 1, [address] [place] [address] Drive,[facility] [address] [place] [id number] 11/26/2022 12:14:40 11/26/2022 12:41:53 Nail deformity 752921544 L60.8 no obvious sign of fungal infection. Nail loss may be related to initial injury. Continue to monitor at home, follow up with any new or worsening symptoms. [id number] Cassie Jimenez [facility] Immediate Care- Floor 1, [address] [place] [address],[facility] [address] [place] [id number] 01/21/2023 07:59:03 01/21/2023 08:28:49 Cough 35754280 R05.1 Generalize d aches and pains 27630118 R52 Exposure t o influenzavirus 760978924 Z20.828 Nausea 587539848 R11.0 Viral syndrome 084291669 B34.9 [id number] Saskia Soriano APRN [facility] Immediate Care- Floor 1, [address] [place] [address],[facility] [address] [place] [id number] 02/10/2023 15:16:39 02/10/2023 15:42:50 Sore throat 145953878 J02.9 We will contact with results of throat culture when available and treat if indicated. Increase fluid intake until better, Tylenol/Mo juan ramon as needed, salt water gargle twice a day. Follow up with any new or worsening symptoms. Discard toothbrush as we discussed. Exposure t o SARS-CoV-2 734778690 Z20.822 Continue with hand hygiene, social distancing and vaccines as recommende d by PCP. Viral syndrome 721318819 B34.9 Possibly HFMD, discussed supportive measures. [id number] Molly Bolton MD [facility] Primary Care- Floor 2, [address] [facility] [address] [place] [id number] 03/17/2023 09:03:37 03/17/2023 10:09:55 Irritable bowel syndrome 75964452 K58.9 Continue zofran prn nausea. Referral to GI for futher work-up. 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 Continue meloxicam and tylenol. Referring to Ortho Spine as precaution . Follow-up in 6 weeks and prn [id number] Indu Decker NP [facility] [address] [place] [address] [address] [place] [id number] 05/19/2023 07:54:57 05/19/2023 16:07:23 Hematochezia 395874677 K92.1 6-7 month history hematochez ia, describes large amount at times. Recommend labs today. Recommend colonoscop y to further evaluate r/o colitis, internal hemorrhoid s, other. Pt is scheduled for Colon 06/25 @ 9:00 AM Diarrhea 13004754 R19.7 History of alternatin g constipati on diarrhea. Experienci ng worsening diarrhea over the past 2 weeks. Plan for x-ray abdomen KUB to rule out underlying stool burden. Recommend colonoscop y with random colon biopsies to rule out underlying colitis, other. Plan for labs today. Patient's brother with history of Crohn's. Nausea 105245735 R11.0 Daily episodes of nausea ongoing for several years. EGD reviewed 03/03/[address] Leslie appeared normal, pathology negative for H pylori or celiac. Recommend gallbladde r US to further evaluate. Generalize d abdominal pain 708849763 R10.84 Episodes of upper abdominal pain radiating down throughout her abdomen. Plan for gallbladde r ultrasound as above as well as labs. Recommend colonoscop y to further evaluate. No etiology identified on EGD from 02/2022. 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 Continue meloxicam (if makes to drowsy can take tylenol or ibuprofen instead, discussed taking NSAIDs with food so as not to upset her stomach). Continue amitriptyl line (discussed that it is ok for her to take 10-20 mg rather than 5 mg). Nausea 676602105 R11.0 Following with GI and has upcoming HIDA scan and colonoscop y scheduled. Continue zofran prn. [id number] Francy Su, [facility] - [address], [address] [place] [id number] 07/09/2023 13:46:06 07/09/2023 15:31:08 Chronic cholecystitis 13796229 K81.1 I do feel that she is [...] low-fat diet. Irritable bowel syndrome with diarrhea 834155477 K58.0 I do think she has irritable bowel syndrome with diarrhea we did discuss that laparoscop ic cholecyste ctomy will probably not take care of all of those symptoms. She understand s. 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 Suspect possible pityriasis alba vs. pityriasis versicolor . Will treat for both possibilit ies with combinatio n steroid-an tifungal cream (as planning to have abdominal surgery soon, suggested just treating her back at this time and waiting until wounds heal after surgery to treat her abdomen. Chronic cholecystitis 20 480975 K81.1 Patient scheduled for cholecyste ctomy 07/24/23 Low back p ain co-occurrent with neuralgia of right sciatic nerve 9137974701 98699 M54.41 She is now following with Orthopedic s and will do PT after she has her gallbladde r surgery. [id number] Saskia Soriano, BACTERIOLOGY TEACHER [facility] Immediate Care- Floor 1, [address] [facility],[address] [place] [id number] 07/24/2023 08:07:21 07/24/2023 08:47:22 Sore throat 596512372 J02.9 Suspect viral etiology. Continue with symptom management , salt water gargles BID. Follow up if no improvemen t in 3-5 days or sooner with worsening symptoms. Cough 92914399 R05.1 Suspect that this is viral. Recommend [...] in 7-10 days, sooner with worsening symptoms. [id number] Francy Su DO [place] General Surgery - [address] [facility], [address] [place] [id number] 08/13/2023 11:07:19 08/17/2023 14:08:53 Postoperative visit 752753618 Z48.89 Status post laparoscop ic cholecyste ctomy she is doing well. We discussed that if her loose stools continue, I can give her cholestyra mine if needed. She is going to let me know. She should continue lifting restrictio ns for another couple of weeks. She is to let me know if she needs to see me again. [id number] Molly Bolton MD [facility] Primary Care- Floor 2, [address] [facility] [address] [place] [id number] 09/22/2023 14:35:17 09/22/2023 16:07:30 Generalized rash 190185621 R21 Suspected pityriasis alba. Have treated with both topical steroids and antifungal s without resolution . Referring to dermatolog y for further evaluation . History of cholecystectomy 796239049 Z90.49 Recovering well from recent cholecyste ctomy for chronic cholecysti tis. Low back p ain co-occurrent with neuralgia of right sciatic nerve 8759196248 79135 M54.41 Following w/ spine surgeon Dr. Lobato who has ordered back braces and PT. Insomnia 690186910 G47.0 0 Ok to use benadryl prn sleep. I have prescribed amitriptyl ine in past for her sciatica and said she might try this prn in place of the benadryl as it might also help with sleep. [id number] Molly Bolton MD [facility] Primary Care- Floor 2, [address] [facility] te [email or web address] [employer] [id number] 12/14/2023 10:01:42 12/14/2023 12:08:18 Abnormal urinalysis 833373786 R82.90 Hospital UA w positive LE and UA today in clinic with small LE. Given symptoms of abdominal cramping and ongoing diarrhea, will treat for possible UTI per below and send for culture Acute urin glenn tract infection [id number] N39.0 Will start treatment with keflex as and follow-up urine culture and adjust antibiotic s prn Palpitations [id number] R0 0.2 Stop metoprolol and start labetalol. Patient has upcoming cardiology appt. Cardiac testing including troponins and TTE have so far been reassuring . Holter monitor results pending. Nausea and vomiting 1693 1999 R11.2 Start doxylamine -pyridoxin e for likely related nausea. Nausea [id number] R11.0 Discussed trying doxylamine first for nausea and if breakthrou gh nausea can use zofran prn (class B in , likely safe) test positive [id number] Z32.01 Patient has follow-up US later this week (elevated HCG but US has yet to confirm IUP) [id number] Molly Bolton MD [facility] Primary Care- Floor 2, 606 [address] [facility] te DAVIDWystTENZIN [employer] [id number] 02/02/2024 08:22:33 02/02/2024 09:24:10 Impaired mobility [id number] Z74.09 Due to her POTS (becomes lightheade [...] as well. Postural o rthostatic tachycardia syndrome [id number] G90.A Receiving periodic iv fluid injections ordered by OB and following with cardiology Tachycardia [id number] R00. 0 [place] to be 2/2 to dehydratio n and POTS. Currently wearing holter monitor. Following with cardiology . Continue metoprolol . Hyperemesi s gravidarum [id number] O21.0 Continue zofran. Following with OB Second tri mester [id number] Z34.92 Following with OB. Anxiety 83058323 F41.9 Continue buspirone and hydroxyzin e prn. [id number] Molly Bolton MD [facility] Primary Care- Floor 2, [address] [place] [phone] 03/22/2024 08:25:27 03/23/2024 07:20:01 Anxiety disorder [id number] F41.9 Continue buspirone. Collected gene sight testing today to help guide medication management (with plan to forward to her provider when establishe s). Referring to for medication management and counseling . Postural o rthostatic tachycardia syndrome [id number] G90.A Receiving periodic iv fluid infusions ordered by OB and following with cardiology Anemia [id number] D64.9 Iv iron infusions being considered by her OB Hematochezia [id number] K 92.1 Following with GI. Scopes being post-poned until after she delivers. [id number] FLAVIA KIRBYt ic Intervent ions at [facility] [address] [place] [address] 05/11/2024 10:46:21 05/18/2024 10:10:23 [id number] Molly Bolton MD [facility] Primary Care- Floor 2, [address] [place] [phone] 07/12/2024 08:20:01 07/13/2024 07:24:42 Postural orthostatic tachycardia syndrome [id number] G90.A Continues to have issues with standing, [...] Continues to follow with cardiology . Anxiety 53414684 F41.9 Continues on buspirone. [id number] Z33.1 Following / obstetrics /MFM with plan for upcoming induction due to her POTS. [id number] FLAVIA KIRBY ic Intervent ions at [address] [place] [address] 06/14/2024 10:38:56 06/14/2024 12:25:13 [id number] FLAVIA KIRBY Therapeut ic Intervent ions at [address] [place] [address] 09/05/2024 08:00:30 09/05/2024 10:08:29 [id number] FLAVIA KIRBY ic Intervent ions at [address] [place] [address] 10/04/2024 09:53:14 10/04/2024 11:21:35 [id number] FLAVIA KIRBY ic Intervent ions at [address] [place] [address] 11/09/2024 11:15:42 11/15/2024 08:27:33 [id number] FLAVIA KIRBY ic Intervent ions at [address] [place] [address] 12/13/2024 09:47:41 12/15/2024 15:09:13 [id number] FLAVIA KIRBY [facility] Intervent ions at [address] [place] [address] 02/27/2025 10:47:05 03/06/2025 11:58:21 [id number] FLAVIA KIRBY [facility] Intervent ions at [address] [place] [address] 03/31/2025 11:18:25 04/04/2025 11:25:52 Health Concerns Section Related Observation LastModified by Organization Detai ls LastModified Time None Recorded Concern Status LastModified by Organization Details LastModified Time None Recorded Advance Directives Directive N: Payers Insurance Date Sequence Insurance Name Policy Number Policy Zaidi Covered Member ID Zaidi Member ID Guarantor Name 03/31/2025 1 [place] [place] [facility] - FFS/TRADITIONA L Francy Miller Zoroastrianism [id number] Francy Miller Zoroastrianism 03/23/2024 1 [place] [id number] Francy Miller Zoroastrianism [id number] Francy [facility] 02/13/2024 [employer] Unknown Francy Miller Zoroastrianism 04/17/2023 2 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 Francy Miller Zoroastrianism 03/31/2025 1 [employer] [place] (MEDICAID HMO) Francy Miller Zoroastrianism [id number] [facility] Notes Date Note Type Note Provider [...] score of 0 today Molly Bolton MD [address] [place] [address], [address], [place], [address], [facility] [place] - [place] & [place] 09/22/2023 18:47:04 4 text/htm l Francy Zoroastrianism is a 23 yo female with depression, IBS-D, Gilbert's syndrome, chronic low back pain with sciatica, cholecystitis s/p recent cholecystectomy who presents for ER follow-ups. I personally reviewed [facility] ER notes from 12/04/23 and 12/10/23 #PalpitationsPatient seen the above dates for palpitations at [facility] seen at [facility] in between these two ER visitsHRs up to 130s at first ER visit with otherwise normal vitalsShe was given 1L fluid bolus and phenergan at first ER visitAt the [facility] visit in between had unremarkable cardiac echo and negative CTA chestAt 2nd [facility] ER visit HRs up to 120s with otherwise normal vitalsWas given 1L fluid bolus, po metoprolol, and iv zofranReferral was made to Cardiology Dr. Virgen and outpatient cardiac monitoringLabs from 12/04/23 notable for CMP with slightly low K of 3.2, negative troponin, BHCG of 1193, negative UDS, unremarkable CBC, bland UALabs from 12/10/23 notable [place] [address], negative troponin, CMP with slightly elevated tbili [...] inSays she will be able to see circuit rider in [facility] sooner than she can get into cardiology here Molly Bolton MD [address] [place] [address], [address], [place], [address], [facility] - [place] & [place] 12/14/2023 21:40:31 4 text/htm pj Delarosa is a 23 yo female with anxiety and depression, IBS-D, Gilbert's syndrome, chronic low back pain with sciatica, who present for hospital and ER follow-ups. She is accompanied to clinic by her husbandPatient [facility] and also went to ER 01/31/24 for elevated heart rate and n/v.Labs overall unremarkable (negative troponin, CMP without significant abnormalities, normal CBC 01/24/24 at [facility] and unremarkable CMP, CBC, lactic acid, lipase, and UA 01/31/24 at )Had has 2 OB US at 01/23/24 12 weeks gestation and had bedside US on 01/31/24 showing IUP with FHR of 152Was discharged on zofran, buspirone, hydroxyzine and metoprolol from [facility], felt to be having sinus tachycardia, possible POTs, and panic attacksFelt to have sinus tachycardia and dehydration at ER and given LR and zofran and prescribed pepcid at dischargeUK note mentioned patient currently wearing Holter monitor and hadShe says she continues to have some palpitations and dizziness with standingSays she is bed bound and wheelchair bound (she says that her circuit rider made these specifications)Currently off workHaving a lot of nausea as well as diarrheaShe is getting banana bag infusions three times per week (ordered by her OB in [place]) and has been referred to highway construction inspector at [facility] wearing Holter monitorReports HRs up to 170s-180s and sometimes looking like SVT on monitorsOn 25 mg metoprolol dailyShe is following with Dr. [facility] in [place] and has follow-up with them todaySays Holter [...] to fill out Molly Bolton MD [address], [address], [place], [address], [facility] [place] - [place] & [place] 02/02/2024 12:02:53 4 text/htm pj Delarosa is [...] drink and certain foodsContinues to follow with circuit rider who has referred her to immunology (she is hoping to be tested for mcas)Says she has not heard from in [place] that I have referred her to (she [...] some with the POTs Molly Bolton MD [address] [place] [address], [address], [place], [address], [place] - [facility] - [place] & [place] 03/22/2024 17:52:00 4 text/htm pj Delarosa is [...] with immunology, cardiology, MFM, and GI at [facility] time I saw patient in person was [...] prescription after she delivers) Molly Bolton MD [address] [place] [address], [address], [place], [address], [facility] & [place] 07/12/2024 12:23:22 OBGyn Episode No OBEpisode recorded.
--- NOTE | 2025-05-07 17:46 | XR_ITS ---
PROCEDURE INFORMATION: Exam: XR Chest Exam date and time: 05/07/2025 5:57 PM Age: 25 years old Clinical indication: Other: Chest pain TECHNIQUE: Imaging protocol: Radiologic exam of the chest. Views: 1 view. COMPARISON: CT ANGIO CHEST PE PROTOCOL 02/04/2025 10:55 AM FINDINGS: Lungs: Unremarkable. No consolidation. Pleural spaces: Unremarkable. No pleural effusion. No pneumothorax. Heart/Mediastinum: Unremarkable. No cardiomegaly. Bones/joints: Unremarkable. IMPRESSION: No acute findings.
[2025-05-07 18:09] LABS: Hematocrit 42.2 % (37.0-47.0); Hemoglobin 13.7 g/dL (12.2-16.2); Immature Granulocytes % 0.2 %; Mean Corpuscular HGB Conc 32.5 g/dL (31.8-35.4); Mean Corpuscular Hemoglobin 27.2 pg (27.0-31.2); Mean Corpuscular Volume 83.9 fl (81-99); Nucleated Red Blood Cells % 0 %; Platelet Count 220 K/mm3 (142-424); Red Blood Count 5.03 M/mm3 (4.20-5.40); Red Cell Distribution Width-SD 42.6 fL; White Blood Count 6.5 K/mm3 (4.8-10.8)
--- NOTE | 2025-05-07 18:10 | ECG_ITS ---
APPROVED REPORT Exam: Resting ECG HR:96 bpm ECG Measurements Heart Rate 96 AXES CA 154 P 69 QRSd 70 QRS 76 QT 319 T 55 QTc 372 Conclusion Normal sinus rhythm without acute ST or T wave changes concerning for ischemia occasional PVC Electronically signed by : Camryn 05/08/2025 01:00:24
--- NOTE | 2025-05-07 18:11 | PC.NURSE ---
tech went in to perform EKG. at bedside reports passed out. tech come out to get nurse and MD, when MD and nurse walked into room pt was awake and alert tearful
[2025-05-07 18:16] LABS: Phosphorous 4.4 mg/dl (2.5-4.5)
[2025-05-07 18:17] LABS: Alanine Aminotransferase 23 U/L (12-78); Albumin Level 4.9 g/dl (3.5-5.0); Albumin/Globulin Ratio 1.4 (1.1-1.8); Alkaline Phosphatase 77 U/L (38-126); Anion Gap 18.0 mEq/L (5-15); Aspartate Amino Transferase 27 U/L (14-36); Bilirubin,Total 1.6 mg/dl (0.2-1.3); Blood Urea Nitrogen 12 mg/dl (7-17); Calcium 10.1 mg/dl (8.4-10.2); Carbon Dioxide 25 mmol/L (22.0-30.0); Chloride 103 mmol/L (98-107); Creatinine Clearance Estimated 97 mL/min (50-200); Creatinine,Serum 1.00 mg/dl (0.52-1.04); Estimated Glomerular Filt Rate 67 ml/min (>60); GFR (African American) 80 ML/MIN (>60); Globulin 3.4 g/dL (1.3-3.2); Glucose 98 mg/dl (74-100); Magnesium 2.0 mg/dl (1.6-2.3); Potassium 4.0 mmoL/L (3.5-5.1); Sodium 142 mmol/L (136-145); Total Protein,Serum 8.3 g/dl (6.3-8.2)
[2025-05-07 18:17] LABS: HCG Qualitative, Serum Negative (Negative)
[2025-05-07 18:21] LABS: D-Dimer < 0.25 ug/mL (0.0-0.5)
--- NOTE | 2025-05-07 18:32 | CT_ITS ---
PROCEDURE INFORMATION: Exam: CT Head Without Contrast Exam date and time: 05/07/2025 6:40 PM Age: 25 years old Clinical indication: Syncope and collapse TECHNIQUE: Imaging protocol: Computed tomography of the head without contrast. Radiation optimization: All CT scans at this facility use at least one of these dose optimization techniques: automated exposure control; mA and/or kV adjustment per patient size (includes targeted exams where dose is matched to clinical indication); or iterative reconstruction. COMPARISON: MR HEAD/BRAIN WO CON 01/13/2025 3:32 PM FINDINGS: Brain: Normal. No hemorrhage. Unremarkable white matter. No mass effect. Cerebral ventricles: No ventriculomegaly. Paranasal sinuses: Visualized sinuses are unremarkable. No fluid levels. Mastoid air cells: Visualized mastoid air cells are well aerated. Bones: Unremarkable. No acute fracture. Soft tissues: Unremarkable. IMPRESSION: No acute intracranial abnormality.
[2025-05-07 18:34] LABS: Free T4 (Free Thyroxine) 1.09 ng/dl (0.78-2.19); Troponin I < 0.01 ng/ml (0.00-0.034)
[2025-05-07 18:48] LABS: Thyroid Stimulating Hormone 4.17 uIU/mL (0.465-4.68)
--- NOTE | 2025-05-07 18:48 | HMH.EDGENADL ---
Discharge Plan Disposition Patient Disposition: Home, Self-Care Condition: Good Prescriptions Prescriptions: No Action famotidine 20 mg tablet 20 mg PO DAILY levothyroxine 25 mcg tablet PO Patient Comments: TAKE ONE TABLET BY MOUTH EVERY DAY fludrocortisone 0.1 mg tablet 0.1 mg PO DAILY 30 Days Qty: 30 2RF methimazole 10 mg tablet 10 mg PO BID Qty: 60 2RF buspirone 5 mg tablet See Rx Instructions .ROUTE .COMPLEX Qty: 30 2RF Dose Instruction: TAKE ONE TABLET BY MOUTH AT BEDTIME Rx Instructions: TAKE ONE TABLET BY MOUTH AT BEDTIME ondansetron 4 mg tablet,disintegrating 4 mg PO Q8HP PRN (Reason: nausea and vomiting) Qty: 20 0RF ferumoxytol [Feraheme] 510 mg/17 mL (30 mg/mL) solution 510 mg IV Q3D Rx Instructions: administer over at least 15 minutes propranolol 20 mg tablet See Rx Instructions .ROUTE .COMPLEX Qty: 90 2RF Dose Instruction: TAKE 1 AND 1/2 TABLET BY MOUTH THREE TIMES DAILY Rx Instructions: TAKE 1 AND 1/2 TABLET BY MOUTH THREE TIMES DAILY cholecalciferol (vitamin D3) 25 mcg (1,000 unit) tablet 4,000 unit PO DAILY Patient Comments: TAKE FOUR TABLETS BY MOUTH EVERY DAY sodium chloride 1,000 mg Tablet,Soluble 1,000 mg PO BID 30 Days Qty: 60 0RF Referrals Follow up/Referrals: Padmini Wyatt APRN [Primary Care Provider, Medical] - See instructions Activity Restrictions/Add. Instructions Additional Instructions/Restrictions: Follow-up with your primary care provider and your specialist at . Return to the emergency department for any acute or worsening symptoms. Clinical Impressions Clinical Impression: Weakness Print Language Print Language: Qatari Discharge ED Provider: Camryn Sun Adult HPI General Chief complaint: Shortness of Breath/Dyspnea Stated complaint: soa, syncope Time Seen by Provider: 05/07/25 17:06 Mode of Arrival: Wheelchair Source of Information: Patient Description of Symptoms (Recalled from ER Triage Doc. by RN): pt presents to ED with mutiple complaints. pt reports head feels floaty, heart palpitations, shortness of air, low ferritin levels, purple fingers. pt reports that she feels funny. symptoms have been ongoing for the past 3 weeks. pt has been seen by pcp. pcp told pt to come to ER if symptoms persist. History of Present Illness HPI narrative: Patient is a 25-year-old female who presents to the emergency department with multiple complaints. Patient has POTS disease follows with and with multiple specialists. Patient states that for the last 3 weeks he has felt weaker than usual. Patient reports some shortness of breath. Patient reports that her head feels floaty . Patient denies any headaches. Patient denies any vision changes. Patient denies any numbness or weakness. Patient denies any abdominal pain nausea vomiting or diarrhea. Patient reports some lightheadedness but has not had any syncope. Patient states that she has been eating and drinking appropriately. Patient denies any recent surgeries. Related Data Home Medications ?Medication ?Instructions ?Recorded ?Confirmed cholecalciferol (vitamin D3) 25 4,000 unit PO DAILY 11/30/24 05/01/25 mcg (1,000 unit) tablet famotidine 20 mg tablet 20 mg PO DAILY 02/01/25 05/01/25 levothyroxine 25 mcg tablet mcg PO 03/31/25 05/01/25 Previous Rx's ?Medication ?Instructions ?Recorded sodium chloride 1,000 mg soluble 1,000 mg PO BID 30 days #60 tabs 12/01/24 tablet methimazole 10 mg tablet 10 mg PO BID #60 tabs 01/05/25 Held on 02/02/25. Instructions: Home Medication placed on hold at Doctor's office buspirone 5 mg tablet See Rx Instructions .Route 03/13/25 .COMPLEX #30 tabs ondansetron 4 mg disintegrating 4 mg PO Q8HP PRN nausea and 03/20/25 tablet vomiting #20 tabs fludrocortisone 0.1 mg tablet 0.1 mg PO DAILY 30 days #30 tabs 03/31/25 ferumoxytol 510 mg/17 mL (30 510 mg (17 mL) IV Q3D 2 doses 04/05/25 mg/mL) intravenous solution (Feraheme) propranolol 20 mg tablet See Rx Instructions .Route 04/06/25 .COMPLEX #90 tabs Allergies Allergy/AdvReac Type Severity Reaction Status Date / Time cinnamon Allergy Severe Swelling Verified 05/01/25 10:44 of Lip/Tongue/Throat amoxicillin (From Augmentin) Allergy Rash Verified 05/01/25 10:44 clavulanic acid (From Allergy Rash Verified 05/01/25 10:44 Augmentin) Penicillins Allergy Rash Verified 05/01/25 10:44 PFSH PFS Disclaimer: The information contained in this section may have been updated after the patient was seen, as this information can be updated by other users. Medical History Orthostatic syncope Autonomic dysfunction Syncope Gilbert's disease Anemia Chest pain Hot flashes Hyperthyroidism Tachycardia Abnormal thyroid blood test Elevated cortisol level IUD check up Encounter for insertion of intrauterine contraceptive device (IUD) Encounter for gynecological examination (general) (routine) without abnormal findings Weakness Syncope Indirect hyperbilirubinemia Vomiting and diarrhea Second trimester Hypokalemia Tachycardia Syncope Hyperemesis affecting , antepartum Vomiting Heart palpitations Hypertension affecting Panic attack Syncope Near syncope Palpitations Sinus tachycardia Chest pain during Depression Anxiety Palpitations IUD (intrauterine device) in place Adrenal disorder POTS (postural orthostatic tachycardia syndrome) Anxiety disorder affecting , antepartum Norovirus Enteritis due to Norovirus Elevated brain natriuretic peptide (BNP) level of unknown anatomic location Diarrhea Herpes simplex of female genitalia Tobacco dependence syndrome Surgical History Hx of cholecystectomy H/O hand surgery right Hx of dilation and curettage Hx of tonsillectomy Family History Other Family history of myocardial infarction Family history of stroke Social History Smoking Status: Never smoker smoking status stop date: 2023 second hand exposure: Yes alcohol intake: former substance use type: denies use current occupational status: unemployed Travel in the last 8 weeks?: None housing: house Other Medical History Have you received the Flu Vaccine for this season: No Have you received the Pneumonia Vaccine: No ROS Obtained: Yes All systems reviewed & no additional complaints except as documented and Yes Systems reviewed as appropriate & no additional complaints except as documented Physical Exam General General appearance: alert and in no apparent distress Head Head exam: atraumatic, normocephalic and normal inspection Eye Eye exam: Present normal appearance, PERRL and EOMI; Absent scleral icterus ENT ENT exam: Present normal exam and normal external ear exam Neck Neck exam: Present normal inspection and full ROM Chest Chest inspection: Present normal inspection and symmetric chest wall rise Respiratory Respiratory exam: Present normal lung sounds bilaterally; Absent respiratory distress or wheezes Cardiovascular Cardiovascular exam: Present regular rate, normal rhythm and normal heart sounds Abdominal Exam Abdominal exam: Present soft and distention; Absent tenderness, guarding or rebound Extremities Exam Extremities exam: Present normal inspection and full ROM Back Exam Back exam: Present normal inspection and full ROM Neurological Exam Neurological exam: Present alert, oriented X3, CN II-XII intact, normal gait and reflexes normal; Absent motor sensory deficit Psychiatric Psychiatric exam: Present normal affect and normal mood Skin Skin exam: Present warm and dry Medical Decision Making Medical Records Medical records reviewed: Yes I reviewed the patient's medical records. Screening: Per USPSTF and CDC recommendations, given the prevalence of disease in our region, it is our hospital?s policy to screen for HIV and viral Hepatitis for all patients aged 18 and over and those with ongoing risk factors. Paresh Inquiry Pt receiving controlled substance: No Vital Signs: 05/07/25 17:09 05/07/25 17:28 05/07/25 17:30 Temperature 98.7 F Temperature Source Oral Pulse Rate 73 85 Pulse Rate [Left Radial] 80 Respiratory Rate 16 11 L 10 L Blood Pressure 149/101 H 147/88 H Blood Pressure [Right Arm] 149/101 H Blood Pressure Mean Blood Pressure Mean [Right Arm] 117 Blood Pressure Source Blood Pressure Position 02 Sat by Pulse Oximetry 99 100 100 Oxygen Delivery Method Room Air Room Air 05/07/25 17:49 05/07/25 18:00 05/07/25 19:00 Temperature Temperature Source Pulse Rate 78 Pulse Rate [Left Radial] Respiratory Rate 12 Blood Pressure 152/104 H 123/83 Blood Pressure [Right Arm] Blood Pressure Mean 96 Blood Pressure Mean [Right Arm] Blood Pressure Source Blood Pressure Position 02 Sat by Pulse Oximetry 99 99 Oxygen Delivery Method Room Air 05/07/25 19:00 05/07/25 19:30 05/07/25 20:00 Temperature Temperature Source Pulse Rate 105 H 99 H 64 Pulse Rate [Left Radial] Respiratory Rate 13 15 Blood Pressure 120/83 122/79 Blood Pressure [Right Arm] Blood Pressure Mean 90 86 Blood Pressure Mean [Right Arm] Blood Pressure Source Blood Pressure Position 02 Sat by Pulse Oximetry 100 99 95 Oxygen Delivery Method 05/07/25 20:30 05/07/25 20:30 05/07/25 20:45 Temperature Temperature Source Pulse Rate 79 76 Pulse Rate [Left Radial] Respiratory Rate 15 13 Blood Pressure 110/67 Blood Pressure [Right Arm] Blood Pressure Mean 77 Blood Pressure Mean [Right Arm] Blood Pressure Source Blood Pressure Position 02 Sat by Pulse Oximetry 100 99 Oxygen Delivery Method 05/07/25 21:01 05/07/25 21:01 05/07/25 21:15 Temperature Temperature Source Pulse Rate 83 81 Pulse Rate [Left Radial] Respiratory Rate Blood Pressure 123/87 Blood Pressure [Right Arm] Blood Pressure Mean 99 Blood Pressure Mean [Right Arm] Blood Pressure Source Blood Pressure Position 02 Sat by Pulse Oximetry 99 99 Oxygen Delivery Method 05/07/25 21:30 05/07/25 21:30 05/07/25 21:43 Temperature 98.7 F Temperature Source Oral Pulse Rate 72 72 Pulse Rate [Left Radial] Respiratory Rate 16 Blood Pressure 102/58 L 102/58 L Blood Pressure [Right Arm] Blood Pressure Mean 72 Blood Pressure Mean [Right Arm] Blood Pressure Source Automatic Cuff Blood Pressure Position Sitting 02 Sat by Pulse Oximetry 100 Oxygen Delivery Method Room Air Nasal Cannula Lab Data Lab results reviewed: Yes I reviewed the patient's lab results. Lab Results 05/07/25 17:46: Serum HCG, Qual Negative 05/07/25 17:47: WBC 6.5, RBC 5.03, Hgb 13.7, Hct 42.2, MCV 83.9, MCH 27.2, MCHC 32.5, RDW 14.1, Plt Count 220, MPV 12.0 H, Neut % (Auto) 65.9, Lymph % (Auto) 28.2, Bladen % (Auto) 4.6, Eos % (Auto) 0.5, Baso % (Auto) 0.6, Neut # (Auto) 4.3, Lymph # (Auto) 1.8, [place]aden # (Auto) 0.3, Eos # (Auto) 0.0, Baso # (Auto) 0.0, D-Dimer < 0.25, Sodium 142, Potassium 4.0, Chloride 103, Carbon Dioxide 25, Anion Gap 18.0 H, BUN 12, Creatinine 1.00, Estimated Creat Clear 97, Estimated GFR 67, Est GFR ( Amer) 80, Glucose 98, Calcium 10.1, Phosphorus 4.4, Magnesium 2.0, Total Bilirubin 1.6 H, AST 27, ALT 23, Alkaline Phosphatase 77, Troponin I < 0.01, Total Protein 8.3 H, Albumin 4.9, Globulin 3.4 H, Albumin/Globulin Ratio 1.4, TSH 4.17, Free T4 1.09 05/07/25 21:00: Troponin I < 0.01 05/07/25 17:47 05/07/25 17:47 Orders (Tests/Meds): ORDERS Category Date Time Status CT head/brain wo con Stat Cat Scan 05/07/25 18:32 Completed CXR --portable [XR chest portable] Stat Exams 05/07/25 17:46 Completed CBC w/Auto Diff [Complete Blood Count Auto Diff] Stat Lab 05/07/25 17:47 Completed CMP [Comprehensive Metabolic Panel] Stat Lab 05/07/25 17:47 Completed D-Dimer Stat Lab 05/07/25 17:47 Completed Free T4 (Free Thyroxine) Stat Lab 05/07/25 17:47 Completed HCG Qualitative, Serum Stat Lab 05/07/25 17:46 Completed Magnesium Stat Lab 05/07/25 17:47 Completed PHOS [Phosphorous] Routine Lab 05/07/25 17:47 Completed TSH [Thyroid Stimulating Hormone] Stat Lab 05/07/25 17:47 Completed Trop I [Troponin I] Stat Lab 05/07/25 17:47 Completed Troponin I Q3H Lab 05/07/25 21:00 Completed Medical Decision Narrative: Patient is an otherwise healthy 25-year-old female who presented to the emergency department with multiple complaints. On arrival, patient was hemodynamically stable with unremarkable vital signs. Differential includes but not limited to: Dehydration, urinary tract infection, electrolyte abnormalities, dehydration, vasovagal syncope, cardiac syncope, amongst others. Labs were reviewed and interpreted by myself: CBC showed no leukocytosis, hemoglobin was stable. Magnesium was normal, phosphorus is normal. Troponin was less than 0.01. D-dimer normal. EKG was reviewed and interpreted by myself and showed normal sinus rhythm without acute ST or T wave changes concerning for ischemia. CT head was reviewed and interpreted by myself showed no acute intracranial process. At this time, given patient's unremarkable workup, the patient was appropriate and stable for discharge home. Return precautions were discussed. Critical Care Critical Care Time Critical Care Time: No
[2025-05-07 21:38] LABS: Troponin I < 0.01 ng/ml (0.00-0.034)
== END 2025-05-07 21:46 | disposition home or self-care (01) ==
PROVIDERS: Emergency Provider Student in an Organized Health Care Education/Training Program; PCP Nurse Practitioner Family
DX: R06.02 Shortness of breath (principal); R53.1 Weakness; G90.A Postural orthostatic tachycardia syndrome [POTS]; E80.4 Gilbert syndrome; E06.3 Autoimmune thyroiditis
CPT/HCPCS: 70450; 71045; 80053; 83735; 84100; 84439; 84443; 84484; 84703; 85025; 85378; 93005; 99285

== ENCOUNTER 2025-05-15 07:31 | Outpatient (CLI) | payer MEDICAID, SELFPAY ==
--- OUTSIDE RECORDS SUMMARY | 2025-04-04 16:00 | XMS_ITS | Encounter Summary ---
Author Organization [facility] [place] Address [address] [place] [id number] Care Team Providers Care Fence Setter Name Role Phone Angela Oleary RN Unavailable Unavailable Rey Wyatt MD Primary Care Provider [phone] Reason for Referral * Consultation (Routine) - Authorized Specialty Diagnoses / Procedures Referred By Mili joe Referred To Contact Diagnoses Epigastric pain Diarrhea, unspecified type Albania Aguero MD [address] [address] Phone: tel: fax: Referral ID Status Reason Start Date Expiration Date V isits Requested Visits Authorized [id number] Authorized 04/07/2025 10/07/2026 1 1 * Imaging (Routine) - Closed Specialty Diagnoses / Procedures Referred By Mili joe Referred To Contact Gastroenterology Diagnoses Epigastric pain Diarrhea, unspecified type Gastroesophageal reflux disease, unspecified whether esophagitis present Procedures Colonoscopy Albania Aguero MD [address] [address] Phone: tel: fax: Referral ID Status Reason Start Date Expiration Date V isits Requested Visits Authorized [id number] Closed Specialty Services Required 04/07/2025 10/07/2026 1 1 * Imaging (Routine) - Closed Specialty Diagnoses / Procedures Referred By Mili joe Referred To Contact Gastroenterology Diagnoses Epigastric pain Diarrhea, unspecified type Gastroesophageal reflux disease, unspecified whether esophagitis present Procedures EGD Albania Aguero MD [address] [facility] [address] [place] [address] Phone: tel: fax: Referral ID Status Reason Start Date Expiration Date V isits Requested Visits Authorized [id number] Closed Specialty Services Required 04/07/2025 10/07/2026 1 1 Reason for Visit * Reason Comments Weight loss Encounter Details Date Type Department Care Team (Late st Contact Info) Description 04/04/2025 4:00 PM EDT Office Visit [facility] [address] [place] [address] Donaldo Terry MD [address] [place] [address] Epigastric pain (Primary Dx); Diarrhea, unspecified type; Gastroesophageal reflux disease, unspecified whether esophagitis present Social History Tobacco Use Types Packs/Day Years [...] 0 12/15/2024 [facility] - Occupational Stress [...] the money to buy more. Never true 07/16/20 24 Within the past 12 months, t [...] in a correction (including now)? No 02/09/2024 [place] Depression Scale Answer Date Recorded [place] Depression Scale Total 6 08/08/2024 The thought [...] drink first t casi in the morning (EYE-DUMPMAN) to steady your nerves or to get [...] Sign Reading Time Taken Comments Blood Pressure 107/72 04/04/2025 4:31 PM EDT Pulse 69 04/04/2025 4:31 PM EDT Temperature - - Respiratory Rate - - Oxygen Saturation 97% 04/04/2025 4:31 PM EDT ra Inhaled Oxygen Concentration - - Weight 72.1 kg (159 lb) 04/04/2025 4:31 PM EDT Height 167.6 cm (5' 6 ) 04/04/2025 4:31 PM EDT Body Mass Index 25.66 04/04/2025 4:31 PM EDT documented in this encounter Miscellaneous Notes * Progress Notes - Donaldo Terry MD - 04/04/2025 4:00 PM EDT Subjective Patient ID: Francy Delarosa is a 24 y.o. female. chief complain: abdominal pain Abdominal Pain This is a chronic problem. The current episode started more than 1 year ago. The onset quality is gradual. The problem occurs every several days. The most recent episode lasted 2 hours. The problem has been gradually worsening. The pain is located in the LUQ and RUQ. The pain is at a severity of 9/10. The quality of the pain is cramping and dull. The abdominal pain radiates to the LUQ, RUQ and back. Associated symptoms include anorexia, arthralgias, belching, constipation, diarrhea, flatus, frequency, headaches, hematochezia, myalgias, nausea and vomiting. Pertinent negatives include no dysuria, fever, hematuria, melena or weight loss. Nothing aggravates the pain. The pain is relieved by Palpation, sitting up and vomiting. Ms. Francy Delarosa is a 24 y.o. year old female with PMH of GERD with history of peptic ulceration,Gilbert's Syndrome and POTS. The patient is s/p cholecystectomy in July 2023 being seen today inclinic for follow up on GERD, abdominal pain, intermittent hematochezia, and hyperbilirubinemia. 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 She had a capsule endoscopy completed instead. 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 She still report episodic severe epigastric and LUQ pain that can last for a few hours, not relatedto certain food. She was in local ER recently and was told her lipase is midlly elevated. No imaging was done. She does report history of PUD many years ago. She also endorses loose Bms/diarrhea, no NSAIDs use, no alcohol or drug use. Family history of crohn's disease. Weight is stable She remains in a wheel chair today, and states her ambulation has been getting better. VCE 12/2024: Impression: normal capsule endoscopy with relatively rapid transit through the small bowel The following portions of the chart were reviewed this encounter and updated as appropriate: Tobacco Allergies Meds Problems Med Hx Surg Hx Fam Hx Review of Systems Constitutional: Negative for chills, fever and weight loss. HENT: Negative for trouble swallowing. Respiratory: Negative for chest tightness and shortness of breath. Cardiovascular: Negative for chest pain and leg swelling. Gastrointestinal: Positive for abdominal pain, anorexia, constipation, diarrhea, flatus, hematochezia, nausea and vomiting. Negative for abdominal distention, blood in stool and melena. Genitourinary: Positive for frequency. Negative for difficulty urinating, dysuria and hematuria. Musculoskeletal: Positive for arthralgias and myalgias. Skin: Negative for color change. Neurological: Positive for headaches. Negative for tremors and seizures. Psychiatric/Behavioral: Negative for agitation and behavioral problems. Objective Visit Vitals BP 107/72 (BP Location: Left arm, Patient Position: Sitting) Pulse 69 Ht 1.676 m (5' 6 ) Wt 72.1 kg (159 lb) SpO2 97% Comment: ra BMI 25.66 kg/m?? OB Status Having periods Smoking Status Former BSA 1.83 m?? Physical Exam Constitutional: Appearance: Normal appearance. HENT: Head: Normocephalic and atraumatic. Cardiovascular: Rate and Rhythm: Normal rate and regular rhythm. Pulmonary: Effort: Pulmonary effort is normal. Breath sounds: Normal breath sounds. Abdominal: General: Abdomen is flat. There is no distension. Palpations: Abdomen is soft. Tenderness: There is no abdominal tenderness. There is no guarding. Musculoskeletal: Right lower leg: No edema. Left lower leg: No edema. Skin: Coloration: Skin is not jaundiced. Neurological: Mental Status: She is alert and oriented to person, place, and time. Psychiatric: Mood and Affect: Mood normal. Behavior: Behavior normal. Assessment/Plan Assessment & Plan Diagnoses and all orders for this visit: Epigastric pain - EGD; Future - Colonoscopy; Future - Follow Up GI; Future Diarrhea, unspecified type - EGD; Future - Colonoscopy; Future - Follow Up GI; Future Gastroesophageal reflux disease, unspecified whether esophagitis present - EGD; Future - Colonoscopy; Future #GERD #Nausea #Abdominal pain #History of Peptic Ulceration # Diarrhea - Previous trials of PPI worsened symptoms per patient report. Will hold off on restarting PPI pending endoscopic evaluation - Food allergy testing negative per immunology - H Pylori stool study negative - Since TFTs are back to normal and thyroid storm has resolved, will proceed with EGD and colonoscopy #Elevated T-biliruin #Gilbert's Syndrome #S/p cholecystectomy - Patient has elevated total bilirubin in the setting of previously diagnosed Gilbert's disease. - Tbili is currently WNL. - Will continue to monitor Seen and discussed with Dr Laci Terry MD GI Fellow, PGY-5 Pager: [phone] Cosigned by Albania Aguero MD at 04/11/2025 1:59 PM EDT Associated attestation - Albania Aguero MD - 04/11/2025 1:59 PM EDT I saw and evaluated the patient with the resident/fellow. I discussed the case with the resident/fellow and agree with the findings and plan as documented. documented in this encounter Plan of Treatment Upcoming Encounters Date Type Department Care Team (Late st Contact Info) Description 06/09/2025 7:30 AM EST Office Visit [facility] Medicine Specialties [address] [place] [address] Silverio Tam PA [address] [place] [address] 06/15/2025 12:30 PM EST Office Visit [place] [facility] [address] [place] [address] Kendy Sanchez, TRISTAN [address] [place] [address] 06/19/2025 8:00 AM EST Office Visit [facility] [place] [address], [address] [place] [address] Courtney Torres MD [address] [place] [address] 06/19/2025 12:30 PM EST Appointment [facility] [address] [place] [id number] 06/21/2025 12:30 PM EST Appointment [facility] [address] [place] [address] Scheduled Referrals Name Type Priority Associated Diagnoses Orde r Schedule Follow Up GI Outpatient Referral Routine Epigastric pain Diarrhea, unspecified type Expected: 07/07/2025, Expires: 05/07/2026 documented as of this encounter Goals Goal Patient Goal Type Associated Problems Recent Progress Patient-Stated? Author Delayed Delivery Care Plan CPM S22 PP LABOR (OBSTETRICS) No Open Scheduling, Background documented as of this encounter Results * Colonoscopy (04/18/2025 9:10 AM EDT) Anatomical Region Laterality Modality Endoscopy Narrative 04/18/2025 9:30 AM EDT Table formatting from the original result was not included. Impression: External small hemorrhoids. The exam was otherwise normal in forward and retroflexed views. Post Procedure Diagnosis Grade I hemorrhoids Recommendations - Discharge home with escort - Advance diet as tolerated - Recommend repeat colonoscopy at 43 for screening purposes - Results discussed with patient and family - Follow up with referring provider Indication Order Indication: Hematochezia, Epigastric pain Medications See anesthesia record for anesthesia administered medications. Staff Staff Role Sea Otero CRNA CRNA Beyruth Schwartz, Ingrid, MD Proceduralist Jean Padilla Endo Furnace Operator [employer] Dana Brian Endo Nurse Pantera White MD Anesthesiologist Preprocedure A history and physical has been performed, and patient medication allergies have been reviewed. The patient's tolerance of previous anesthesia has been reviewed. The risks and benefits of the procedure and the sedation options and risks were discussed with the patient. All questions were answered and informed consent obtained. Details of the Procedure The patient underwent monitored anesthesia care, which was administered by an anesthesia professional. The patient's blood pressure, heart rate, level of consciousness, respirations and oxygen saturation were monitored throughout the procedure. A digital rectal exam was performed. A perianal exam was performed. The scope was introduced through the anus and advanced to the cecum. Retroflexion was performed in the rectum. The quality of bowel preparation was evaluated using the [place] Bowel Preparation Scale with scores of: right colon = 2, transverse colon = 2, left colon = 2. The total BBPS score was 6. Bowel prep was adequate. The patient experienced no blood loss. The procedure was not difficult. The patient tolerated the procedure well. There were no apparent adverse events. Attestation I was present for the entire procedure Events Procedure Events Event Event Time ENDO SCOPE IN TIME 04/18/2025 8:44 AM ENDO SCOPE OUT TIME 04/18/2025 8:50 AM ENDO SCOPE IN TIME 04/18/2025 8:53 AM ENDO CECUM REACHED 04/18/2025 8:59 AM ENDO SCOPE OUT TIME 04/18/2025 9:07 AM Specimens ID Type Source Tests Collected by Time A : biopsy Tissue Stomach SURGICAL PATHOLOGY EXAM Cony Mcelroy MD 04/18/2025 0849 Findings External small hemorrhoids. The exam was otherwise normal in forward and retroflexed views. Albania Aguero MD GI PROCEDURE ORDERABLES Susannah oliva Result * EGD (04/18/2025 9:10 AM EDT) Anatomical Region Laterality Modality Endoscopy Narrative 04/18/2025 9:36 AM EDT Table formatting from the original result was not included. Impression: The esophagus, stomach and duodenum appeared normal. Performed random biopsy to rule out H. pylori. Post Procedure Diagnosis Normal exam Recommendations - Await pathology - Proceed with same day colonoscopy Indication Epigastric pain, Gastroesophageal reflux disease, unspecified whether esophagitis present Medications See anesthesia record for anesthesia administered medications. Staff Staff Role Sea Otero CRNA ABALONE DIVER Cony Mcelroy MD Proceduralist Jean Padilla Endo Furnace Operator [employer] Dana Brian Endo Nurse Pantera White MD Anesthesiologist Preprocedure A history and physical has been performed, and patient medication allergies have been reviewed. The patient's tolerance of previous anesthesia has been reviewed. The risks and benefits of the procedure and the sedation options and risks were discussed with the patient. All questions were answered and informed consent obtained. Details of the Procedure The patient underwent monitored anesthesia care, which was administered by an anesthesia professional. The patient's blood pressure, heart rate, level of consciousness, oxygen saturation and respirations were monitored throughout the procedure. The scope was introduced through the mouth and advanced to the second part of the duodenum. Retroflexion was performed in the cardia, fundus and incisura. Prior to the procedure, the patient's H. Pylori status was unknown. The patient's estimated blood loss was minimal. The procedure was not difficult. The patient tolerated the procedure well. There were no apparent adverse events. Attestation I was present for the entire procedure Specimens ID Type Source Tests Collected by Time A : biopsy Tissue Stomach SURGICAL PATHOLOGY EXAM Cony Mcelroy MD 04/18/2025 0849 Findings The esophagus, stomach and duodenum appeared normal. Performed random biopsy using biopsy forceps to rule out H. pylori. us Albnaia Aguero MD GI PROCEDURE ORDERABLES Susannah oliva Result documented in this encounter Visit Diagnoses Diagnosis Epigastric pain- Primary Abdominal pain, epigastric Diarrhea, unspecified type Gastroesophageal reflux disease, unspecified whether esophagitis present Epigastric pain Abdominal pain, epigastric Diarrhea, unspecified type Gastroesophageal reflux disease, unspecified whether esophagitis present documented in this encounter Additional Health Concerns Active Problems Noted Date Diagnosed Date CPM S22 PP LABOR (OBSTETRICS) 02/24/2024 Assessment Noted Time PHQ-9 Depression Total Score: 2 12/16/19 25 2:22 PM EDT A fall risk assessment has been complete d for the patient 04/04/2025 4:30 PM EDT A Body Mass Index follow-up plan has been documented for the patient 04/11/2025 1:59 PM EDT documented as of this encounter Care Teams Fence Setter Relationship Specialty Start Date End Date Rey Wyatt MD [address] [place] [address] PCP - General 11/16/24 Angela Oleary, RN [facility] Registered Nurse Cardiology 02/17/24 documented as of this encounter
--- OUTSIDE RECORDS SUMMARY | 2025-04-12 12:02 | XMS_ITS | Encounter Summary ---
Author Organization [email or web address] ([place], [place], [place], [place]) Address [address] [place] [address] Care Team Providers Care Operations Controller Name Role Phone EdmundoPadmini TRISTAN Primary Care Provider Reason for Referral * Cardiac Rehabilitation (Routine) - Closed Specialty Diagnoses / Procedures Referred By Contac t Referred To Contact Diagnoses Syncope Procedures Tilt table Provider, Not In System Leticia Nobles MD [address], [address] [address] Phone: tel: fax: Referral ID Status Reason Start Date Expiration Date Visits Re quested Visits Authorized [id number] Closed 09/19/2024 09/19/2025 1 1 Reason for Visit * Cardiac Rehabilitation (Routine) - Closed Specialty Diagnoses / Procedures Referred By Contac t Referred To Contact Diagnoses Syncope Procedures Tilt table Provider, Not In System Leticia Nobles MD [address], [facility] [address] [place] [address] Phone: tel: fax: Referral ID Status Reason Start Date Expiration Date Visits Re quested Visits Authorized [id number] Closed 09/19/2024 09/19/2025 1 1 Encounter Details Date Type Department Care Team (Latest Contact Info) Description 04/12/2025 12:02 PM EDT - 04/12/2025 11:59 PM EDT Hospital Encounter [facility] Procedure Lab [address] [place] [address] Syncope Discharge Disposition: Home or [...] collapse documented in this encounter Care Teams Operations Controller Relationship Specialty Start Date End Date Padmini Wyatt, CHARGEMASTER ANALYST [address] [phone] PCP - General Nurse Practitioner 04/12/25 documented as of this encounter
--- OUTSIDE RECORDS SUMMARY | 2025-04-18 07:27 | XMS_ITS | Encounter Summary ---
Author Organization Healthcare Address [address] [id number] Care Team Providers Care Home Lending Officer Name Role Phone Angela Oleary RN Unavailable Unavailable Rey Wyatt MD Primary Care Provider [phone] Reason for Referral * Imaging (Routine) - Closed Specialty Diagnoses / Procedures Referred By Mili joe Referred To Contact Gastroenterology Diagnoses Epigastric pain Diarrhea, unspecified type Gastroesophageal reflux disease, unspecified whether esophagitis present Procedures Colonoscopy Albania Aguero MD [address] [address] Phone: tel: fax: Referral ID Status Reason Start Date Expiration Date V isits Requested Visits Authorized [id number] Closed Specialty Services Required 04/07/2025 10/07/2026 1 1 * Imaging (Routine) - Closed Specialty Diagnoses / Procedures Referred By Mili joe Referred To Contact Gastroenterology Diagnoses Epigastric pain Diarrhea, unspecified type Gastroesophageal reflux disease, unspecified whether esophagitis present Procedures EGD Albania Aguero MD [address] [facility] [address] [place] [phone] Phone: tel: fax: Referral ID Status Reason Start Date Expiration Date V isits Requested Visits Authorized [id number] Closed Specialty Services Required 04/07/2025 10/07/2026 1 1 Reason for Visit * Imaging (Routine) - Closed Specialty Diagnoses / Procedures Referred By Contac t Referred To Contact Gastroenterology Diagnoses Epigastric pain Diarrhea, unspecified type Gastroesophageal reflux disease, unspecified whether esophagitis present Procedures Colonoscopy Albania Aguero MD [address] [facility] [address] [place] [address] Phone: tel: fax: Referral ID Status Reason Start Date Expiration Date V isits Requested Visits Authorized [id number] Closed Specialty Services Required 04/07/2025 10/07/2026 1 1 Encounter Details Date Type Department Care Team (Late st Contact Info) Description 04/18/2025 7:27 AM EDT - 04/18/2025 11:59 PM EDT Hospital Encounter [facility] [address] [place] [address] Cony Mcelroy MD [address] [facility] [address] [place] [address] Pantera White MD [address] [place] [address] Sea Otero CRNA [address] [place] [address] Dana Brian GS - Endoscopy [...] Recorded Patient Health Questionnaire-2 Score 0 12/15/2024 [place] of Occupat ional Health - Occupational Stress [...] in a mcfp (including now)? 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 USE UNTIL RESOLVED. Lancets (SignadyneTouch Delica Plus [id number]) [facility] 04/14/2024 levothyroxine (Synthroid, Levoxyl) 25 MCG tablet [...] every 6 hours as needed. sodium chloride ([place] Nasal [place]) 0.65 % nasal spray Administer 1 spray [...] to purchase OTC Blood Glucose Monitoring Suppl (Dreamweaver Internationaluch Verio Reflect) w/Device kit busPIRone (BUSPAR) 5 [...] MINUTES THEN RINSE OFF.USE UNTIL RESOLVED. Lancets (SignadyneTouch Delica Plus [id number]) misc levothyroxine (SYNTHROID, LEVOXYL) 25 mcg, Daily [...] mg, Every 6 hours PRN sodium chloride ([place] Nasal [place]) 0.65 % nasal spray 1 spray, Each [...] min Stress: No Stress Concern Present (02/22/2024) [place] [facility] Occupational [facility] - Occupational Stress Questionnaire Feeling of Stress : Not at all Social Connections: Moderately Isolated (02/22/2024) Social Connection and Isolation Panel Frequency of Communication with Friends and Family: More than three times a week Frequency of Social Gatherings with Friends and Family: Once a week Attends Yarsanism Services: Never Active Member of Clubs or [...] from the original note were not included. [id number] Endoscopy Unit: Caring for Yourself after an [...] will be available in the patient portal, [employer]. Or you can call the doctor who [...] Description 06/09/2025 7:30 AM EST Office Visit [facility] Medicine Specialties [address] [place] [phone] Silverio Tam PA [address] [place] [phone] 06/15/2025 12:30 PM EST Office Visit [facility] [address] [place] [phone] Kendy Sanchez APRN [address] [place] [phone] 06/19/2025 8:00 AM EST Office Visit [facility] [place] [address] [facility], [address] [place] [address] Courtney Torres MD [address] [place] [address] 06/19/2025 12:30 PM EST Appointment [facility] [address] [place] [address] 06/21/2025 12:30 PM EST Appointment [facility] [address] [place] [address] documented as of this encounter Goals Goal [...] Schwartz, Ingrid, MD Proceduralist Jean Padilla Endo Detasseling Crew Supervisor Dana Brian Endo Nurse Pantera White MD [...] of bowel preparation was evaluated using the [place] Bowel Preparation Scale with scores of: right [...] medications. 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 BIOPSY Received in formalin labeled b iopsy, stomach , are 5 pink-reyes soft tissue fragments that range from 0.3-0.6 cm in greatest dimension. Entirely submitted in cassette A1. Cold Time: <1m Haritha B Pettealfonso 04/19/2025 3:22 PM EDT [facility] Note: A resident was involved in the service. I attest I examined the relevant preparations for the specimens and confirmed the diagnosis or interpretation. 04/19/2025 3:22 PM EDT [facility] Tissue Stomach structure / Unknown 04/18/2025 8:49 AM EDT 04/18/2025 9:18 AM EDT us Cony Carter MD LAB PATHOLOGY ORDERAB LES Final Result Performing Organization Address City/[facility] Co de Phone Number [facility] [address] [place] [address] * POCT , URINE (04/18/2025 7:53 AM EDT) POCT Test, Urine Negative Males and Non-pregnan t Females: Negative 04/18/2025 7:59 AM EDT [facility] Boat Laborer ID Melinda Allen 04/18/2025 7:59 AM EDT HEALTHCARE LAB Device ID [id number] 04/18/2025 7:59 AM EDT [facility] Urine Urine specimen obtained by clean catch procedure / Unknown 04/18/2025 7:53 AM EDT 04/18/2025 7:59 AM EDT us Cony Carter MD LAB POINT OF CARE TEST DOCKED DEVICE UNSOLICITED RESULTS Final Result Performing Organization Address City/[facility] Co de Phone Number [facility] [address] [place] [address] documented in this encounter Visit Diagnoses Diagnosis [...] as of this encounter Care Teams Home Lending Officer Relationship Specialty Start Date End Date Rey Wyatt MD [address] [place] [address] PCP - General 11/16/24 Angela Oleary, RN [facility] Registered Nurse Cardiology 02/17/24 documented as of this encounter
--- OUTSIDE RECORDS SUMMARY | 2025-04-18 08:38 | XMS_ITS | Encounter Summary ---
Author Organization Healthcare Address [address] [place] [address] Care Team Providers Care Guide Name Role Phone Angela Oleary RN Unavailable Unavailable Rey Wyatt MD Primary Care Provider [phone] Encounter Details Date Type Department Care Team (Late st Contact Info) Description 04/18/2025 8:38 AM EDT Anesthesia Event [facility] Endoscopy [address] [place] [phone] Pantera White MD [address] [place] [phone] Anesthesia Record Procedure Summary Procedure Name Responsible [...] How often do you attend [facility] or rastafari services? Never 02/22/2024 Do you [...] Patient Health Questionnaire-2 Score 0 12/15/2024 [facility] - Occupational Stress Questionnaire Answer Date [...] a group home (including now)? No 02/09/2024 [place] Depression Scale Answer Date Recorded [place] Depression Scale Total 6 08/08/2024 The thought [...] first t casi in the morning (EYE-HAND LOOM WEAVER) to steady your nerves or to get [...] were not included. Anesthesiologist: Pantera White MD SENIOR GAME DESIGNER: Sea Otero CRNA Patient: Francy Delarosa is [...] to purchase OTC Blood Glucose Monitoring Suppl (IdylisTouch Verio Reflect) w/Device kit busPIRone (BUSPAR) 5 [...] MINUTES THEN RINSE OFF.USE UNTIL RESOLVED. Lancets ([employer] Delica Plus [id number]) misc levothyroxine (SYNTHROID, LEVOXYL) 25 mcg, Daily methIMAzole (TAPAZOLE) 10 mg, Oral, Daily ondansetron (ZOFRAN) 4 mg, Oral, Every 8 hours PRN ondansetron ODT (ZOFRAN-ODT) 8 mg, Oral, Every 8 hours PRN [employer] Verio test strip 1 each, As needed [...] mg, Every 6 hours PRN sodium chloride ([place] Nasal [place]) 0.65 % nasal spray 1 spray, Each [...] ABG No results found for: PHART , FJI2ECF , PO2ART , SO2ART , BEART , DYD7DPZ , HCTART , SODIUMART , POTASSIUMART , [...] PRE (L) Date/Time Value 03/01/2025 1119 3.42 [id number] (L) Date/Time Value 03/01/2025 1119 4.85 (A) [...] Plan ASA 2 Plan was reviewed with: SENIOR GAME DESIGNER Anesthesia technique(s) discussed with the patient/family: general [...] 06/09/2025 7:30 AM EST Office Visit [facility] Medicine Specialties [address] [place] [address] Silverio Tam PA [address] [place] [address] 06/15/2025 12:30 PM EST Office Visit [place] [facility] [address] [place] [address] CarlitaKendy winters, PACKAGE REINSPECTOR [address] [place] [address] 06/19/2025 8:00 AM EST Office Visit [facility] [place] [address], [address] [place] [address] Courtney Torres MD [address] [place] [address] 06/19/2025 12:30 PM EST Appointment [facility] [address] [place] [address] 06/21/2025 12:30 PM EST Appointment [facility] [address] [place] [address] documented as of this [...] documented as of this encounter Care Teams Guide Relationship Specialty Start Date End Date Rey Wyatt MD [address] [place] [address] PCP - General 11/16/24 Angela Oleary, RN [facility] Registered Nurse Cardiology 02/17/24 documented as of this encounter
--- OUTSIDE RECORDS SUMMARY | 2025-05-15 07:33 | XMS_ITS | Encounter Summary ---
Author Organization Healthcare Address [address] [place] [address] Care Team Providers Care Drop Hammer Mechanic Name Role Phone Angela Oleary RN Unavailable Unavailable Rey Wyatt MD Primary Care Provider [phone] Encounter Details Date Type Department Care Team ([facility] st Contact Info) Description 02/16/2025 Telephone [facility] [place] [address] [facility], [address] [place] [address] Social History Tobacco Use Types [...] often do you attend chur ch or yazidi services? Never 02/22/2024 Do you belong to any clubs o r organizations such as synagogue groups, unions, fraternal or athletic groups, or [...] Recorded Patient Health Questionnaire-2 Score 0 12/15/2024 [facility] - [...] in a long-term (including now)? No 02/09/2024 [place] Depression Scale Answer Date Recorded [place] Depression Scale Total 6 08/08/2024 The thought [...] drink first t casi in the morning (EYE-LOG MARKER) to steady your nerves or to [...] any apts in Apr. Best contact number: [phone] (home) Optimal time of day to reach [...] Description 06/09/2025 7:30 AM EST Office Visit [facility] [address], [address] [place] [address] Silverio Tam PA [address] [place] [phone] 06/15/2025 12:30 PM EST Office Visit [facility] [address] [place] [address] Kendy Sanchez APRN [address] [place] [address] 06/19/2025 8:00 AM EST Office Visit [facility] [place] [address], [address] [place] [address] Courtney Torres MD [address] [place] [address] 06/19/2025 12:30 PM EST Appointment [facility] [address] [place] [address] 06/21/2025 12:30 PM EST Appointment [facility] [address] [place] [address] documented as of this encounter Goals Goal [...] documented as of this encounter Care Teams Drop Hammer Mechanic Relationship Specialty Start Date End Date Rey Wyatt MD [address] [facility] [address] [place] [address] PCP - General 11/16/24 Angela Oleary, RN [facility] Registered Nurse Cardiology 02/17/24 documented as of this encounter
--- OUTSIDE RECORDS SUMMARY | 2025-05-15 07:33 | XMS_ITS | Encounter Summary ---
Author Organization [employer] ([place], [place], [place], [place]) Address [address] [place] [address] Care Team Providers Care Youth Career Specialist Name Role Phone Padmini Wyatt APRN Primary Care Provider Encounter Details Date Type [...] Date Guerrero rded Speak language other than Qat[place] at home Not on file 08/13/2023 Want [...] on filedocumented in this encounter Care Teams Youth Career Specialist Relationship Specialty Start Date End Date Padmini Wyatt APRN [address] [place] [id number] PCP - General Nurse Practitioner 04/12/25 documented as of this encounter
--- OUTSIDE RECORDS SUMMARY | 2025-05-15 07:34 | XMS_ITS | Data Portability ---
Author Organization [facility] [employer] [place] - [place] Address [address] [place] [address] Assessment Encounter Date Assessment Date Assessment LastModified by Organization Details LastModified Time 12/18/2023 12/18/2023 Patient is ___weeks . Discussed plan. [email or web address] Not available 12/17/2023 10:25:59 Plan of Treatment Reminders Order Date Submit Date Provider Last Modified By Organization Details Last Modified Time Details Appointments None recorded. Lab urinalysis , dipstick [address], [address] [place] [address], [id number], 4 17:15:18 unlisted lab - qnatal(R) advanced 2023 024 [facility], [address], [place], [address], 4 01:26:17 rapid strep group A, throat 2023 024 [email or web address] [facility], [address] [place] [address], [place], [address], 4 13:42:01 urinalysis , dipstick 2023 024 [facility], [address] [place], [address], 4 10:47:53 Referral None recorded. Procedures None recorded. Surgeries None recorded. Imaging None recorded. Medication Orders cefdinir 300 mg capsule 2023 024 [email or web address] [facility], [address] [place] [address] [address], [place], [place], [id number], 4 16:54:44 Patient TargetsNo targets recorded. Patient Instructions Encounter Date Encounter Id Patient Instructions Last Modified By Organization Details Last Modified Time 01/06/2024 [id number] Increase fluid intake, take tylenol and motrin for pain/fever as needed, advised to take medication as prescribed to eradicate bacterial infection and reduce chances of antibiotic resistance. Change toothbrush in 24 hours. May return to school 24 hours after antibiotic therapy. Follow up with PCP or OB for symptoms not improving. Go to ER with any concerning symptoms. [email or web address] Not available 01/06/2024 14:35:51 Reason for Referral None Reported. Results Created Date Observation Date Name Description Value Unit Range Abnormal Flag Note LastModifiedBy Organization Detail LastModifiedTime 12/09/19 24 12/10/2023 HEPAT IC FUNCT ION PANEL protein, total 7.7 g/dL 6.1-8. 1 normal Not Available [facility] [place] [facility] [address] [facility] [place], [address], 12/10/2023 11:16:57 12/09/19 24 12/10/2023 HEPAT IC FUNCT ION PANEL albumin 4.7 g/dL 3.6-5. 1 normal Not Available [facility] [address], [place], [address], 12/10/2023 11:16:57 12/09/19 24 12/10/2023 HEPAT IC FUNCT ION PANEL globulin 3.0 g/dL_ (calc ) 1.9-3. 7 normal Not Available [facility] [place] [facility] [address] [facility], [place], [address], 12/10/2023 11:16:57 12/09/19 24 12/10/2023 HEPAT IC FUNCT ION PANEL albumin/glob ulin ratio 1.6 (calc ) 1.0-2. 5 normal Not Available [facility] [address] [place], [address], 12/10/2023 11:16:57 12/09/19 24 12/10/2023 HEPAT IC FUNCT ION PANEL bilirubin, total 2.6 mg/dL 0.2-1. 2 high Not Available [facility] [address] [place], [address], 12/10/2023 11:16:57 12/09/19 24 12/10/2023 HEPAT IC FUNCT ION PANEL bilirubin, direct 0.4 mg/dL < or = 0.2 high Not Available [facility] [address] [place] [address], [address], 12/10/2023 11:16:57 12/09/19 24 12/10/2023 HEPAT IC FUNCT ION PANEL bilirubin, indirect 2.2 mg/dL _(farhan c) 0.2-1. 2 high Not Available [facility] [address] [place], [address], 12/10/2023 11:16:57 12/09/19 24 12/10/2023 HEPAT IC FUNCT ION PANEL alkaline phosphatase 37 U/L 31-125 normal Not Available [facility] [address] [facility] [place], [address], 12/10/2023 11:16:57 12/09/19 24 12/10/2023 HEPAT IC FUNCT ION PANEL AST 14 U/L 10-30 normal Not Available [facility] [address] [place], [address], 12/10/2023 11:16:57 12/09/19 24 12/10/2023 HEPAT IC FUNCT ION PANEL ALT 12 U/L 6-29 normal Not Available [facility] [place] [facility] [address] [facility] [place], [address], 12/10/2023 11:16:57 12/09/19 24 12/10/2023 HCG, TOTAL , [place] [address] mIU/m L high Refer ence Range Nonpr [...] appro goldie by the FDA or the [facility] actur er of the assay . Not Available [facility] [place] [facility] [address] [facility], [place], [address], 12/10/2023 11:16:58 12/09/19 24 12/09/2023 urina lysis , dipst ick Leukocytes Modera te Not Available [address], [address], 12/09/2023 08:11:20 12/09/19 24 12/09/2023 urina lysis , dipst ick Nitrite negati ve Not Available [address], [address], 12/09/2023 08:11:20 12/09/19 24 12/09/2023 urina lysis , dipst ick Urobilinogen .2 Not Available [address], [address], 12/09/2023 08:11:20 12/09/19 24 12/09/2023 urina lysis , dipst ick Protein Negati ve Not Available [address], [address], 12/09/2023 08:11:20 12/09/19 24 12/09/2023 urina lysis , dipst ick pH 5.5 Not Available [address], [address], 12/09/2023 08:11:20 12/09/19 24 12/09/2023 urina lysis , dipst ick Blood Negati ve Not Available [address], [address], 12/09/2023 08:11:20 12/09/1912/09/2023 urina lysis , dipst ick Specific [place] 1.025 Not Available [address], [address], 12/09/2023 08:11:20 12/09/19 24 12/09/2023 urina lysis , dipst ick Ketone Small Not Available [address], [address], 12/09/2023 08:11:20 12/09/19 24 12/09/2023 urina lysis , dipst ick Bilirubin Negati ve Not Available [address], [address], 12/09/2023 08:11:20 12/09/19 24 12/09/2023 urina lysis , dipst ick Glucose Negati ve Not Available [address], [address], 12/09/2023 08:11:20 12/09/19 24 12/09/2023 urina lysis , dipst ick Appearance Clear Not Available [address], [address], 12/09/2023 08:11:20 12/09/19 24 12/09/2023 urina lysis , dipst ick Color Dark Yellow Not Available [facility] [address] [facility], [place], [address], 12/09/2023 08:11:20 12/09/19 24 12/09/2023 pregn suzanne test, urine HCG positi ve Not Available [facility] [address] [facility], [place], [address], 12/09/2023 08:11:34 12/18/19 24 12/22/2023 OBSTE TRIC PANEL W/FOU RTH GENER ATION HIV AND HEPAT ITIS C AB W/REF L white blood cell count 6.2 thous and/u L 3.8-10 .8 normal Not Available [facility] [place] [facility] [address] [place], [address], 12/22/2023 10:53:19 12/18/19 24 12/22/2023 OBSTE TRIC PANEL W/FOU RTH GENER ATION HIV AND HEPAT ITIS C AB W/REF L red blood cell count 4.24 iron on/uL 3.80-5 .10 normal Not Available [facility] [place] [facility] [address] [facility], [place], [address], 12/22/2023 10:53:19 12/18/19 24 12/22/2023 OBSTE TRIC PANEL W/FOU RTH GENER ATION HIV AND HEPAT ITIS C AB W/REF L hemoglobin 12.7 g/dL 11.7-1 5.5 normal Not Available [facility] [place] [facility] [address] [facility], [place], [address], 12/22/2023 10:53:19 12/18/19 24 12/22/2023 OBSTE TRIC PANEL W/FOU RTH GENER ATION HIV AND HEPAT ITIS C AB W/REF L hematocrit 38.7 % 35.0-4 5.0 normal Not Available [facility] [place] [facility] [address] [facility] [place], [address], 12/22/2023 10:53:19 12/18/19 24 12/22/2023 OBSTE TRIC PANEL W/FOU RTH GENER ATION HIV AND HEPAT ITIS C AB W/REF L MCV 91.3 fL 80.0-1 00.0 normal Not Available [facility] [place] [facility] [address] [facility], [place], [address], 12/22/2023 10:53:19 12/18/19 24 12/22/2023 OBSTE TRIC PANEL W/FOU RTH GENER ATION HIV AND HEPAT ITIS C AB W/REF L MCH 30.0 pg 27.0-3 3.0 normal Not Available [facility] [place] [facility] [address] [place], [address], 12/22/2023 10:53:19 12/18/19 24 12/22/2023 OBSTE TRIC PANEL W/FOU RTH GENER ATION HIV AND HEPAT ITIS C AB W/REF L MCHC 32.8 g/dL 32.0-3 6.0 normal Not Available [facility] [place] [facility] [address] [place], [address], 12/22/2023 10:53:19 12/18/19 24 12/22/2023 OBSTE TRIC PANEL W/FOU RTH GENER ATION HIV AND HEPAT ITIS C AB W/REF L RDW 12.0 % 11.0-1 5.0 normal Not Available [facility] [place] [facility] [address] [place], [address], 12/22/2023 10:53:19 12/18/19 24 12/22/2023 OBSTE TRIC PANEL W/FOU RTH GENER ATION HIV AND HEPAT ITIS C AB W/REF L platelet count 143 thous and/u L 140-40 0 normal Not Available [facility] [place] [facility] [address], [place], [address], 12/22/2023 10:53:19 12/18/19 24 12/22/2023 OBSTE TRIC PANEL W/FOU RTH GENER ATION HIV AND HEPAT ITIS C AB W/REF L MPV 11.8 fL 7.5-12 .5 normal Not Available [facility] [place] [facility] [address], [place], [address], 12/22/2023 10:53:19 12/18/19 24 12/22/2023 OBSTE TRIC PANEL W/FOU RTH GENER ATION HIV AND HEPAT ITIS C AB W/REF L absolute neutrophils 5233 cells /uL 1500-7 800 normal Not Available [facility] [place] [facility] [address], [place], [address], 12/22/2023 10:53:19 12/18/19 24 12/22/2023 OBSTE TRIC PANEL W/FOU RTH GENER ATION HIV AND HEPAT ITIS C AB W/REF L absolute lymphocytes 651 cells /uL 850-39 00 low Not Available [facility] [place] [facility] [address], [place], [address], 12/22/2023 10:53:19 12/18/19 24 12/22/2023 OBSTE TRIC PANEL W/FOU RTH GENER ATION HIV AND HEPAT ITIS C AB W/REF L absolute monocytes 273 cells /uL 200-95 0 normal Not Available [facility] [place] [facility] [address], [place], [address], 12/22/2023 10:53:19 12/18/19 24 12/22/2023 OBSTE TRIC PANEL W/FOU RTH GENER ATION HIV AND HEPAT ITIS C AB W/REF L absolute eosinophils 12 cells /uL 15-500 low Not Available [facility] [place] [facility] [address], [place], [address], 12/22/2023 10:53:19 12/18/19 24 12/22/2023 OBSTE TRIC PANEL W/FOU RTH GENER ATION HIV AND HEPAT ITIS C AB W/REF L absolute basophils 31 cells /uL 0-200 normal Not Available [facility] [place] [facility] [address], [place], [address], 12/22/2023 10:53:19 12/18/19 24 12/22/2023 OBSTE TRIC PANEL W/FOU RTH GENER ATION HIV AND HEPAT ITIS C AB W/REF L neutrophils 84.4 % normal Not Available [facility] [place] [facility] [address], [place], [address], 12/22/2023 10:53:19 12/18/19 24 12/22/2023 OBSTE TRIC PANEL W/FOU RTH GENER ATION HIV AND HEPAT ITIS C AB W/REF L lymphocytes 10.5 % normal Not Available [facility] [place] [facility] [address], [place], [address], 12/22/2023 10:53:19 12/18/19 24 12/22/2023 OBSTE TRIC PANEL W/FOU RTH GENER ATION HIV AND HEPAT ITIS C AB W/REF L monocytes 4.4 % normal Not Available [facility] [place] [facility] [address], [place], [address], 12/22/2023 10:53:19 12/18/19 24 12/22/2023 OBSTE TRIC PANEL W/FOU RTH GENER ATION HIV AND HEPAT ITIS C AB W/REF L eosinophils 0.2 % normal Not Available [facility] [place] [facility] [address], [place], [address], 12/22/2023 10:53:19 12/18/19 24 12/22/2023 OBSTE TRIC PANEL W/FOU RTH GENER ATION HIV AND HEPAT ITIS C AB W/REF L basophils 0.5 % normal Not Available [facility] [place] [facility] [address] [facility], [place], [address], 12/22/2023 10:53:19 12/18/19 24 12/22/2023 OBSTE TRIC [...] pregn suzanne. Not Available [facility] [place] [facility] [address] [facility], [place], [address], 12/22/2023 10:53:19 12/18/19 24 12/22/2023 OBSTE TRIC PANEL W/FOU RTH GENER ATION HIV AND HEPAT ITIS C AB W/REF L ABO group O Not Available [facility] [place] [facility] [address] [facility], [place], [address], 12/22/2023 10:53:19 12/18/19 24 12/22/2023 OBSTE TRIC PANEL W/FOU RTH GENER ATION HIV AND HEPAT ITIS C AB W/REF L Rh type RH(D) POSITI VE For addit ional infor cliff up e refer to http: //[facility] emily shah.Que stDia gnost ics.c om/fa q/FAQ 111 (This link is being provi ded for infor martell shen/ educa domi l purpo ses only. ) Not Available [facility] [place] [facility] [address] [facility], [place], [address], 12/22/2023 10:53:19 12/18/19 24 12/22/2023 OBSTE TRIC PANEL W/FOU RTH GENER ATION HIV AND HEPAT ITIS C AB W/REF L RPR (DX) w/refl titer and confirmatory testing NON-RE ACTIVE non-re active normal No labor atory evide nce of syphi lis. If recen t expos ure is suspe cted, submi t a new sampl e in 2-4 weeks . Not Available [facility] [place] [facility] [address] [facility] [facility], [place], [address], 12/22/2023 10:53:19 12/18/19 24 12/22/2023 OBSTE TRIC [...] only. ) Not Available [facility] [place] [facility] [address] [facility], [place], [address], 12/22/2023 10:53:19 12/18/19 24 12/22/2023 OBSTE TRIC [...] virus . Not Available [facility] [place] [facility] [address] [facility], [place], [address], 12/22/2023 10:53:19 12/18/19 24 12/22/2023 OBSTE TRIC [...] matio n pleas e refer to http: //[facility] emily shah.bill stdia gnost ics.c om/fa q/FAQ 106 (This link is being provi ded for infor matio nal/ educa domi l purpo ses only. ) The perfo rmanc e of this assay has not been clini leobardo valid ated in patie nts less than 2 years old. Not Available [facility] [place] [facility] [address], [place], [address], 12/22/2023 10:53:19 12/18/19 24 12/22/2023 OBSTE TRIC [...] a test for HCV RNA (test code 07399 ) is sugge sted. For addit ional infor matio n pleas e refer to http: //[facility] duong stdia gnost ics.c om/fa q/FAQ 22v1 (This link is being provi ded for infor martell shen/ yang oliva purpo ses only. ) Not Available [facility] [place] [facility] [address] [place], [address], 12/22/2023 10:53:19 01/06/20 24 01/06/2024 rapid strep group A, throa t Strep negati ve Not Available [facility] - [address], [place], [address], 01/06/2024 13:13:50 01/15/20 24 01/26/2024 QNATA L(R) ADVAN GREGORIO number of fetuses? 1 Not Available [facility] [place] [facility] [address], [place], [address], 01/26/2024 01:26:17 01/15/20 24 01/26/2024 QNATA L(R) ADVAN GREGORIO advanced maternal age? NOT GIVEN Not Available [facility] [place] [facility] [address] [place], [address], 01/26/2024 01:26:17 01/15/20 24 01/26/2024 QNATA L(R) ADVAN GREGORIO abnormal meliton? NOT GIVEN Not Available [facility] [place] [facility] [address] [place], [address], 01/26/2024 01:26:17 01/15/20 24 01/26/2024 QNATA L(R) ADVAN GREGORIO abnormal US? NOT GIVEN Not Available [facility] [place] [facility] [address] [place], [address], 01/26/2024 01:26:17 01/15/20 24 01/26/2024 QNATA L(R) ADVAN GREGORIO personal/fam history? NOT GIVEN Not Available [facility] [place] [facility] [address] [place], [address], 01/26/2024 01:26:17 01/15/20 24 01/26/2024 QNATA L(R) ADVAN GREGORIO interpretati on SEE NOTE This speci men showe d an expec sathish repre senta tion of chrom osome 21, 18, and 13 mater ial. See Elias rivera below . 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) Negati ve Not Available [facility] [place] [facility] [address] [facility], [place], [address], 01/26/2024 01:26:17 01/15/20 24 01/26/2024 QNATA L(R) ADVAN GREGORIO trisomy 13 (T13) Negati ve Not Available [facility] [place] [facility] [address] [facility], [place], [address], 01/26/2024 01:26:17 01/15/20 24 01/26/2024 QNATA L(R) ADVAN GREGORIO Y chromosome Not detect ed Not Available [facility] [place] [facility] [address] [facility], [place], [address], 01/26/2024 01:26:17 01/15/20 24 01/26/2024 QNATA L(R) ADVAN GREGORIO Y chr. interpretati on SEE NOTE Consi stent with a femal e fetus . Not Available [facility] [place] [facility] [address] [facility], [place], [address], 01/26/2024 01:26:17 01/15/20 24 01/26/2024 QNATA L(R) ADVAN GREGORIO sex chromosome No aneupl oidy Not Available [facility] [place] [facility] [address] [facility] [place], [address], 01/26/2024 01:26:17 01/15/20 24 01/26/2024 QNATA L(R) ADVAN GREGORIO sex chromosome interp SEE NOTE No appar ent abnor malit y was detec sathish. See Limi tatio ns below . Not Available [facility] [place] [facility] [address] [facility] [place], [address], 01/26/2024 01:26:17 01/15/20 24 01/26/2024 QNATA L(R) ADVAN GREGORIO microdeletio n Not detect ed Not Available [facility] [place] [facility] [address] [facility] [place], [address], 01/26/2024 01:26:17 01/15/20 24 01/26/2024 QNATA L(R) ADVAN GREGORIO microdeletio n interp SEE NOTE No appar ent abnor malit y was detec sathish. See Limi tatio ns below . Not Available [facility] [address] [facility] [place], [address], 01/26/2024 01:26:17 01/15/20 24 01/26/2024 QNATA L(R) ADVAN GREGORIO gestational age(in weeks) 10 Not Available [facility] [place] [facility] [address] [facility] [place], [address], 01/26/2024 01:26:17 01/15/20 24 01/26/2024 QNATA L(R) ADVAN GREGORIO gestational age (in days) 3 Not Available [facility] [place] [facility] [address] [facility] [place], [address], 01/26/2024 01:26:17 01/15/20 24 01/26/2024 QNATA L(R) ADVAN GREGORIO fraction 9.49% Not Available [facility] [place] [facility] [address] [place], [address], 01/26/2024 01:26:17 01/15/20 24 01/26/2024 QNATA L(R) ADVAN GREGORIO laboratory comments SEE NOTE A porti on of the testi ng was perfo rmed at [facility] . Labor atory resul ts and submi tted clini farhan infor matio n revie wed by Tomi Lozano, Ph.D. , [facility] , [facility]. Not Available [facility] [place] [facility] [address] [place], [address], 01/26/2024 01:26:17 01/15/20 24 01/26/2024 QNATA L(R) [...] origi n. Not Available [facility] [place] [facility] [address] [facility], [place], [address], 01/26/2024 01:26:17 01/15/20 24 01/26/2024 QNATA L(R) [...] sment . Not Available [facility] [place] [facility] [address] [facility], [place], [address], 01/26/2024 01:26:17 01/15/2001/26/2024 QNATA L(R) ADVAN GREGORIO [...] senta tion of seque nces from the [facility], [facility] ns invol goldie in 1p36 [...] by FDA. Not Available [facility] [place] [facility] [address], [place], [address], 01/26/2024 01:26:17 01/15/20 24 01/26/2024 CHLAM YDIA/ N.RO ORRHO EAE AND T. VAGIN ADILSON RNA, QL TMA chlamydia trachomatis RNA, tma, urogenital NOT DETECT ED not detect ed normal Not Available [facility] [place] [facility] [address] [facility] [address], [place], [address], 01/26/2024 01:26:18 01/15/20 24 01/26/2024 CHLAM YDIA/ N.RO ORRHO EAE AND T. VAGIN ADILSON RNA, QL TMA neisseria gonorrhoeae RNA, tma, urogenital NOT DETECT ED not detect ed normal Not Available [facility] [place] [facility] [address] [facility], [place], [address], 01/26/2024 01:26:18 01/15/20 24 01/26/2024 CHLAM YDIA/ [...] refer to https ://ed ucati on.qu estdi [employer] tics. com/f aq/FA Q154 (This link is being provi ded for infor martell shah/ educa domi l purpo ses only. ) Not Available [facility] [place] [facility] [address] [facility], [place], [address], 01/26/2024 01:26:18 01/15/20 24 01/26/2024 CHLAM YDIA/ N.RO ORRHO EAE AND T. VAGIN ADILSON RNA, QL TMA trichomonas vaginalis RNA, ql tma NOT DETECT ED not detect ed normal For addit ional infor cliff up refer to http: //[facility] emily shah.que stdia gnost ics.c om/ faq/T katie reynolds tma (This link is being provi ded for infor martell shen/ educa domi l purpo ses only. ) Not Available [facility] [place] [facility] [address] [facility], [place], [address], 01/26/2024 01:26:18 01/15/20 24 01/26/2024 DRUG MONIT ORING , PANEL 8 WITH CONFI RMATI ON, URINE alcohol metabolites NEGATI VE NG/mL <500 normal Not Available [facility] [place] [facility] [address] [place], [address], 01/26/2024 01:26:18 01/15/20 24 01/26/2024 DRUG MONIT ORING , PANEL 8 WITH CONFI RMATI ON, URINE amphetamines NEGATI VE NG/mL <500 normal Not Available [facility] [place] [facility] [address] [facility], [place], [address], 01/26/2024 01:26:18 01/15/20 24 01/26/2024 DRUG MONIT ORING , PANEL 8 WITH CONFI RMATI ON, URINE benzodiazepi bony NEGATI VE NG/mL <100 normal Not Available [facility] [place] [facility] [address] [facility], [place], [address], 01/26/2024 01:26:18 01/15/20 24 01/26/2024 DRUG MONIT ORING , PANEL 8 WITH CONFI RMATI ON, URINE buprenorphin e NEGATI VE NG/mL <5 normal Not Available [facility] [place] [facility] [address] [place], [address], 01/26/2024 01:26:18 01/15/20 24 01/26/2024 DRUG MONIT ORING , PANEL 8 WITH CONFI RMATI ON, URINE cocaine metabolite NEGATI VE NG/mL <150 normal Not Available [facility] [place] [facility] [address] [place], [address], 01/26/2024 01:26:18 01/15/20 24 01/26/2024 DRUG MONIT ORING , PANEL 8 WITH CONFI RMATI ON, URINE 6 acetylmorphi ne NEGATI VE NG/mL <10 normal Not Available [facility] [address] [place], [address], 01/26/2024 01:26:18 01/15/20 24 01/26/2024 DRUG MONIT ORING , PANEL 8 WITH CONFI RMATI ON, URINE marijuana metabolite NEGATI VE NG/mL <20 normal Not Available [facility] [address] [place], [address], 01/26/2024 01:26:18 01/15/20 24 01/26/2024 DRUG MONIT ORING , PANEL 8 WITH CONFI RMATI ON, URINE MDMA NEGATI VE NG/mL <500 normal Not Available [facility] [address] [facility] [place], [address], 01/26/2024 01:26:18 01/15/20 24 01/26/2024 DRUG MONIT ORING , PANEL 8 WITH CONFI RMATI ON, URINE opiates NEGATI VE NG/mL <100 normal Not Available [facility] [address] [facility] [place], [address], 01/26/2024 01:26:18 01/15/20 24 01/26/2024 DRUG MONIT ORING , PANEL 8 WITH CONFI RMATI ON, URINE oxycodone NEGATI VE NG/mL <100 normal Not Available [facility] [place] [facility] [address] [place], [address], 01/26/2024 01:26:18 01/15/20 24 01/26/2024 DRUG MONIT ORING , PANEL 8 WITH CONFI RMATI ON, URINE creatinine 89.6 mg/dL > or = 20.0 normal Not Available [facility] [place] [facility] [address] [facility] [place], [address], 01/26/2024 01:26:18 01/15/20 24 01/26/2024 DRUG MONIT ORING , PANEL 8 WITH CONFI RMATI ON, URINE pH 8.4 4.5-9. 0 normal Not Available [facility] [address] [place], [address], 01/26/2024 01:26:18 01/15/20 24 01/26/2024 DRUG MONIT ORING , PANEL 8 WITH CONFI RMATI ON, URINE oxidant NEGATI VE mcg/m L <200 normal Not Available [facility] [address] [place], [address], 01/26/2024 01:26:18 01/15/20 24 01/26/2024 DRUG MONIT [...] 10pm EST Not Available [facility] [address] [place], [address], 01/26/2024 01:26:19 01/15/20 24 01/26/2024 CULTU RE, URINE , ROUTI NE culture, urine, routine SEE NOTE CULTU RE, URINE , ROUTI NE Micro Numbe r: [id number] Test Statu s: Final Speci men Sourc e: Urine Speci men Quali ty: Adequ ate Resul t: No Growt h Not Available [facility] [address] [place], [address], 01/26/2024 01:26:19 01/15/20 24 01/15/2024 urina lysis , dipst ick Leukocytes Modera te Not Available [address], [address], 01/15/2024 16:55:16 01/15/20 24 01/15/2024 urina lysis , dipst ick Nitrite negati ve Not Available [address], [address], 01/15/2024 16:55:16 01/15/20 24 01/15/2024 urina lysis , dipst ick Urobilinogen .2 Not Available [address], [address], 01/15/2024 16:55:16 01/15/20 24 01/15/2024 urina lysis , dipst ick Protein Negati ve Not Available [address], [address], 01/15/2024 16:55:16 01/15/20 24 01/15/2024 urina lysis , dipst ick pH 6.0 Not Available [address], [address], 01/15/2024 16:55:16 01/15/20 24 01/15/2024 urina lysis , dipst ick Blood Negati ve Not Available [address], [address], 01/15/2024 16:55:16 01/15/20 24 01/15/2024 urina lysis , dipst ick Specific [place] 1.020 Not Available [address], [address], 01/15/2024 16:55:16 01/15/20 24 01/15/2024 urina lysis , dipst ick Ketone Negati ve Not Available [address], [address], 01/15/2024 16:55:16 01/15/20 24 01/15/2024 urina lysis , dipst ick Bilirubin Negati ve Not Available [address], [address], 01/15/2024 16:55:16 01/15/20 24 01/15/2024 urina lysis , dipst ick Glucose Negati ve Not Available [address], [address], 01/15/2024 16:55:16 12/11/19 24 12/11/2023 US, obste tric, trans vagin al No observ ation record ed. Amanda [address], [place], [address], 12/14/2023 10:33:57 12/18/1912/18/2023 US, obste tric, trans vagin al No observ ation record ed. [email or web address] [facility] [address] [facility] [place], [address], 12/23/2023 15:48:00 12/18/19 US, obste tric No observ ation record ed. [email or web address] [facility] [address] [place], [address], 12/18/2023 11:51:05 Result Notes None recorded. Problems Name Problem SNOMED Code Status Onset Date Resolution Date Notes Provider Name and Address Organization Details Recorded Time Tinea corporis 16945229 Active 2022 Rhonda Watkins APRN [address] [place] [address], [address], [employer] 3 15:13:40 Pityrias is versicol or 33548174 Active 2022 Rhonda Watkins APRN [address] [place] [address], [address], [employer] 3 15:59:21 Depressi ve disorder 45988959 Active 2022 Rhonda Watkins APRN [address] [place] [address], [address], [employer] 3 15:59:36 Overacti ve urinary bladder 828891321 Active 2022 Rhonda Watkins APRN [address] [place] [address], [address], [employer] 3 15:59:50 Mixed urinary incontin ence 574011404 Active 2022 Rhonda Watkins APRN [address] [place] [address], [address], [employer] 3 16:01:47 Acute pharyngi tis 195605334 Active 2022 Rhondacorey Watkins APRN [address] [place] [address], [address], [employer] 3 17:50:47 Missed period 58118667 Active 2022 Rhonda Watkins APRN [address] [place] [address], [address], [employer] 3 13:04:58 Nausea and vomiting 05082435 Active 2022 Rhonda Watkins APRN [address] [place] [address], [address], [employer] 3 13:41:40 Constipa tion 41119745 Active 2022 Rhonda Watkins APRN [address] [place] [address], [address], [employer] 3 13:41:44 Pelvic and perineal pain 259669708 Active 2022 Rhonda Watkins APRN [address] [place] [address], [address], [employer] 3 17:12:13 Genital herpes simplex 17154256 Active 2022 Rhonda Watkins APRN [address] [place] [address], [address], [employer] 3 17:12:40 Abdomina l pain 48887310 Active 2022 Rhonda Watkins APRN [address] [place] [address], [address], [employer] 3 09:38:02 Streptoc occal sore throat 99372593 Active [address], [address], [employer] 3 08:58:06 Vaginal irritati on 943710867 Active 2023 Rhonda Watkins APRN [address] [place] [address], [address], [employer] 4 12:47:40 Pregnanc y 23826389 Completed 202308/30/2024 ESTELLE ONOFRE maxine, [employer] 5 14:48:36 Tachycar brannon 5315154 Active 2023 On metoprolo l 12.5mg QD Francy Corey, DO [address] [place] [address], [address], [employer] 4 14:10:47 Tachycar brannon 7741176 Completed 2023 On metoprolo l 12.5mg QD Francydaniel Nicole DO [address] [place] [address], [address], [employer] 4 14:10:47 Sore throat 070907530 Active 2023 NEHEMIAH Sims [address] [place] [address], [address], [employer] 4 14:33:22 Gestatio n period, 9 weeks 934868 Active 2023 NEHEMIAH Sims [address] [place] [address], [address], [employer] 4 14:33:29 Problem Notes None recorded. Procedures Surgical History Date Name Laterality Status Provider Name and Address Organization Details Recorded Time 12/11/19 Date of Last Pap Smear completed Francy Evans [employer] 10/20/2023 13:29:10 Tonsillectomy completed TELLO [employer] 12/10/2022 14:43:50 hand repair completed BORIS JANE [employer] 07/23/2023 08:28:12 Dilation and Curettage completed TELLO EMMETT [employer] 12/09/2023 10:10:06 Imaging Results None recorded. Procedure Notes None recorded. Medical Equipment None Reported. Allergies Allergen ID Allergen Name Allergen Category Reaction Reaction Severity Criticality Documentation Date Start Date Code Code System Note Provider Name and Address Organization Details Recorded Time 04201 Product containin g penicilli n (product) medicatio n Not available Not available Not available 12/10/2022 98057 8001 SNOMED [email or web address] SHER[employer] 3 14:48:49 30488 Augmentin medicatio n Not available Not available Not available 12/10/2022 11880 2 RxNorm [email or web address] 3 14:48:54 Medications Name Sig Start Date [...] Updated DateTime 12/11/2023 167.64 cm TELLO SHERMAN [employer] 12/11/2023 16:30:09 Date Recorded Body weight Provider Name an d Address Organization Details Last Updated DateTime 12/16/2023 02724.836547 g Francy Nicole DO [address] [place] [address], [address], [employer]. 12/22/2023 12:17:21 Date Recorded Body height Body mass index (BMI) Systolic And Diastolic Provider Name and Address Organization Details Last Updated DateTime 12/16/2023 167.64 cm 22.2 kg/m2 110/70 mm[Hg] Mychal Parnell [employer] 12/16/2023 09:55:12 Date Recorded Body weight Provider Name an d Address Organization Details Last Updated DateTime 12/18/2023 82239.82775 g Geno BREWSTER [place], [address], [employer]. 12/18/2023 11:47:26 Date Recorded Body height Body mass index (BMI) Provider Name and Address Organization Details Last Updated DateTime 12/18/2023 167.64 cm 22.1 kg/m2 TELLO SHERMAN [employer]. 12/18/2023 11:43:41 Date Recorded Body height Body mass index (BMI) Body weight Oxygen saturation Oxygen saturation in Arterial blood by Pulse oximetry Heart rate Body temperature Systolic And Diastolic Provider Name and Address Organization Details Last Updated DateTime 167.64 cm 22.3 kg/m2 61861.7 5 g 98 % 98 % 81 /min 98.3 [degF] 113/73 mm[Hg] Sahni Bowser [employer]. 13:12:47 Date Recorded Body height Provider Name an d Address Organization Details Last Updated DateTime 01/15/2024 167.64 cm Mychal Parnell [employer] 01/15/2024 16:54:15 Date Recorded Body weight Systolic And Diastolic Provider Name and Address Organization Details Last Updated DateTime 01/15/2024 07120.45235 g 112/62 mm[Hg] Ean Cruz [employer] 01/15/2024 16:59:36 Social History Question Answer Notes LastModified by Organizat ion Details LastModified Time Tobacco Smoking Status Former Smoker BORIS goodman, [employer]. 07/23/2023 08:27:54 What Is Your Level Of [...] Or The Highest Degree You Have Received? [id number] Information not available 12/10/2022 Who Is Your Employer? [employer] Information not available 12/10/2022 Have There Been Any Changes To Your Family Or Social Situation? No Information not available 12/10/2022 When Did You Quit Smoking? 1-5yearssincheryl Information not available 07/23/2023 Which Of Your Hands Is Dominant? Right Information not available 12/10/2022 What Was The Date Of Your Most Recent Tobacco Screening? 01/15/2024 Information not available 01/15/2024 What Is Your Current Pack Years? 10packyears [email or web address] Information not available 07/23/2023 Have You Ever [...] Has Tobacco Cessation Counseling Been Provided? Yes [email or web address] Information not available 10/20/2023 On What Date [...] used smokeless tobacco? Never used smokeless tobacco [place] [address] Information not available 07/23/2023 Are you currently [...] IPV 2 completed TELLO EMMETT SHERMAN null, [employer] 12/10/2022 14:42:16 MMR 2 completed TELLO EMMETT SHERMAN null, [employer]. 12/10/2022 14:42:16 COVID-19 vaccine, vector-nr, rS-Ad26, PF, 0.5 mL 1 completed TELLO EMMETT SHERMAN null, [employer] 12/10/2022 14:42:16 Tdap 0 completed [email or web address] SHERMAN null, [employer] 12/10/2022 14:42:16 varicella 1 completed ETLLO [employer] null, [employer] 12/10/2022 14:42:16 HPV, quadrivalent 1 completed TELLOSenn[employer] null, [employer] 12/10/2022 14:42:16 Hep A, ped/adol, 2 dose 1 completed [email or web address] SHERMAN null, [employer] 12/10/2022 14:42:16 Hep A, ped/adol, 2 dose 0 completed [email or web address] SHERMAN null, [employer] 12/10/2022 14:42:16 DTaP, unspecified formulation 2 completed [email or web address] SHERMAN null, [employer] 12/10/2022 14:42:16 Influenza, split virus, quadrivalent, PF completed Fr[facility]man [facility] [place] 09/22/2023 12:41:20 Past Encounters Encounter ID Performer Location Encounter Start Date Encounter Closed Date Diagnosis/Indication Diagnosis SNOMED-CT Code Diagnosis ICD10 Code Diagnosis IMO Codes Diagnosis Note [id number] Rhonda Odeniam [facility] Eric [place] [address] 12/10/2022 14:38:30 12/10/2022 16:46:26 Pityriasis versicolor 79569723 B36.0 Depressive disorder 3548 9007 F32.A Overactive urinary bladder 059641630 N32.81 Mixed urin glenn incontinence 799162713 N39.46 Screening for malignant neoplasm of cervix 533060730 Z12.4 [id number] Rhonda June [facility] [place] [address] 01/16/2023 14:12:44 01/16/2023 15:00:55 Vaginal irritation 533589569 N89.8 Acute pharyngitis 698861 003 J02.9 [id number] Rhonda Watkins [place] [address] [employer] [address] 02/04/2023 07:51:37 02/05/2023 10:48:21 Pelvic and perineal pain 446128245 R10.2 Genital he rpes simplex 55621835 A60.9 [id number] Yolette Sotelo [address] [address] 04/18/2023 10:23:36 04/18/2023 11:55:33 Acute pharyngitis 473260050 J02.9 Influenza caused by Influenza A virus 946994244 J09.X2 off work until until Thursday [id number] Bharati Tong [address] [address] 04/21/2023 08:50:39 04/21/2023 09:56:48 Missed period 22910423 N92.5 Influenza caused by Influenza A virus 003334303 J09.X2 [id number] BG CATALAN, [address] [place] [address] 07/23/2023 08:09:18 07/23/2023 09:21:43 Viral screening 091520268 Z11.59 Streptococ farhan sore throat 30343358 J02.0 [id number] Rhondacorey Odennikole [facility] [address] [place] [address] 09/22/2023 12:09:54 09/22/2023 13:01:44 Vaginal irritation 478641852 N89.8 [id number] Rhonda June [facility] [address] [place] [address] 10/20/2023 13:11:29 10/20/2023 15:12:45 Vaginal irritation 060653648 N89.8 [id number] TAMIA WILL MD [facility] [address] [place] [address] 12/09/2023 09:32:48 12/09/2023 10:44:16 Missed period 81953771 N92.5 Intrauteri ne 61162158 Z34.90 [id number] TAMIA WILL MD [facility] [address] [place] [address] 12/11/2023 16:01:47 12/11/2023 16:33:10 [id number] Francy Nicole DO [facility] [address] [place] [place] [address] 12/16/2023 09:48:15 12/16/2023 16:56:35 94756817 Z33.1 Dating US scheduled in 2 days Tachycardia 2635430 R00. 0 Prescribed metoprolol 25mg QD, has been taking 12.5 [id number] TAMIA WILL MD [facility] [address] [place] [address] 12/18/2023 10:55:41 12/18/2023 11:59:42 Intrauterine 83452959 Z34.90 [id number] Jocelyn Finney, NEHEMIAH [facility] [address] [place] [address] 01/06/2024 12:33:43 01/06/2024 15:00:47 Sore throat 942276045 J02.9 Acute pharyngitis 705677 003 J02.9 Gestation period, 9 weeks 530046 Z3A.09 Normal weight 39413038 Z 68.22 [id number] Francy Nicole DO [facility] [address] [place] [place] [address] 01/15/2024 16:31:36 01/15/2024 17:20:47 61060761 Z33.1 Health Concerns Section Related Observation LastModified by Organization Detai ls LastModified Time None Recorded Concern Status LastModified by Organization Details LastModified Time None Recorded Advance Directives Directive None Recorded Payers Insurance Date Sequence Insurance Name Policy Number Policy Zaidi Covered Member ID Zaidi Member ID Guarantor Name 06/13/2024 1 [employer] [place] ([place]) [facility] [id number] [facility] 06/01/2023 1 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 SLIDING FEE SCHEDULE - DISCOUNT [facility] 12/16/2023 1 *SELF PAY* Re [facility] 12/16/2023 SLIDING FEE SCHEDULE - DISCOUNT [facility] 03/07/2024 2 *SELF PAY* [facility] 12/16/2023 MEDICAID-[facility] WRAP BILLING (MEDICAID) [facility] [id number] [facility] Notes Date Note Type Note Provider [...] She is given warnings. TAMIA WILL MD [address] [place] [address], [address], [employer]. 12/11/2023 16:35:43 12/16/2023 text/html ROS as noted [...] visit in two days. Francy Nicole DO [address] [place] [address], [address], [employer] 12/22/2023 12:21:03 12/18/2023 text/html Generic HPI TemplateReported by Patient TAMIA WILL MD [address] [place] [address], [address], [employer], [employer]. 12/18/2023 11:52:41 01/06/2024 text/html Sore ThroatRepor sathish [...] 3 day(s) ago. 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 01/06/2024 14:37:51 01/15/2024 text/html ROS as [...] results for her Halter monitor from her rehab services aide next week. Francy Nicloe, [address] [place], [address], [employer] 01/16/2024 14:11:27 OBGyn Episode Ob Episode Information Episode Created Date Number of Fetuses Patient Bloodtype Patient rh Status Prepregnancy Weight lbs Domestic Partner Domestic Partner Phone Father Name Ceramics Test Engineer Status 12/11/19 23 1 CLOSED Fetus Data [...] Domestic Partner Domestic Partner Phone Father Name Ceramics Test Engineer Status 12/11/19 23 1 CLOSED Fetus Data [...] Domestic Partner Domestic Partner Phone Father Name Ceramics Test Engineer Status 12/18/19 24 1 CLOSED Fetus Data First Name Last Name Admitted to NICU Weight (g) Sex Living Outcome Pediatric Complications Fetus ID Race Codes Race Delivery Type 2489.94 93102 F true Full Term 8847 2106-3 White Problems Problem Notes Problem Name Start Date End Date Resolution Snomed Code Not e Tachycardia 12/22/2023 3446736 On meto prolol 12.5mg QD Cole Calculation Initial Cole Date Initial Exam Date Initial Exam Provider Initial Ultrasound Date Last Menstrual Period Date Ultra Sound Weeks Gestation 08/09/2023 12/18/2023 [email or web address] 12/18/2023 11/03/2023 6 Eighteen To Twenty Week Cole Update Ultra Sound Date Fundal Height At Umbil Quickening Date Ultra Sound Latest Weeks Gestation Final Cole Confirmed By Final Cole Confirmed Date Final Cole Date Ultra Sound Latest Days Gestation 0 [id number] 12/18/2023 08/09/19 25 0 Pre- Flowsheet Flowsheet Date 12/16/2023 Zepeda Score Blood Edema Fundus Height Fundus Units Glucose Ketones Leukocytes Nitrite Labor Signs Protein Cervic Dilation Cervic Effacement Cervic Station Type Weight in lbs Pre/Post Dialysis Refused With clothes 137.688079347710 BP Diastolic BP Location Tested BP Systolic [...] in lbs Pre/Post Dialysis Refused With clothes 137.560092078758 BP Diastolic BP Location Tested BP Systolic BP Type sitting Fetus Heart Rate Present Fetus Movement Comments Scan 6.3 week CRL. Labs toda y, 4 weeks Flowsheet Date 01/06/2024 Zepeda Score Blood Edema Fundus Height Fundus Units Glucose Ketones Leukocytes Nitrite Labor Signs Protein Cervic Dilation Cervic Effacement Cervic Station Type Weight in lbs Pre/Post Dialysis Refused With clothes 138.899503785653 BP Diastolic BP Location Tested BP Systolic BP Type 73 R arm 113 sitting Fetus Heart Rate Present Fetus Movement Comments Flowsheet Date 01/15/2024 Zepeda Score Blood Edema Fundus Height Fundus Units Glucose Ketones Leukocytes Nitrite Labor Signs Protein Cervic Dilation Cervic Effacement Cervic Station none neg Type Weight in lbs Pre/Post Dialysis Refused With clothes 136.294495126932 BP Diastolic BP Location Tested BP Systolic [...]
--- OUTSIDE RECORDS SUMMARY | 2025-05-15 07:34 | XMS_ITS | Clinical Summary ---
Author Organization [facility] Address [address] [place] [address] Care Team Providers Care Pci Security Consultant Name Role Phone Angela Oleary RN Unavailable Unavailable Rey Wyatt MD Primary Care Provider [phone] Allergies Active Allergy Reactions Criticality Noted Date [...] day. 30 packet 1 03/16/20 24 Active sodium chloride (Iglesia Antigua Nasal Lihue) 0.65 % nasal spray Administer 1 spray into each nostril if needed for congestion. 30 mL 12 04/12/20 24 Active Blood Glucose Monitoring Suppl (OneTouch Verio Reflect) w/Device kit 04/14/20 24 Active OneTouch Verio test strip 1 each by Other route as needed. 04/14/20 24 Active Lancets (OneTouch Delica Plus [id number]) misc 04/14/20 24 Active ibuprofen 600 MG tablet Take 1 tablet (600 mg) by mouth every 6 (six) hours if needed for mild pain. 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 30 tablet 3 11/17/19 25 Active fluticasone (Flonase) 50 MCG/ACT nasal [...] a day. 60 tablet 1 02/17/20 Active ketoconazole (NIZOral) 2 % shampoo USE SHAMPOO A BODY WASH, LATHER FOR 5 MINUTES THEN RINSE OFF. USE UNTIL RESOLVED. Active bisacodyl (Bisacodyl EC) 5 MG EC tablet Take all 4 tablets at 4 PM on day before colonoscopy IF INSURANCE DOES NOT COVER, please inform pt to purchase OTC 4 tablet 04/07/20 Active polyethylene glycol (GoLYTELY) 236 g solution SEE PHARMACY NOTES FOR PATIENT LABEL INSTRUCTIONS- for Colonoscopy prep protocol 4000 mL 04/07/20 Active Hospital, Clinic, or Other Facility Administered Medication Ordered Dose Route Frequency Start Date End Date Status sodium chloride 0.9 % infusion 250 mLIndications:Supervision of high risk in second trimester 250 mL IV Once 03/30/2024 Active Active Problems Problem Noted Date Diagnosed Date Epigastric pain 04/07/2025 Palpitations 08/17/2024 and not yet delivered in [facility] r 07/16/2024 POTS (postural orthostatic tachycardia [...] Department Care Team Description 04/20/2025 Results Follow-Up [facility] Medicine Specialties [address], [address]nd [place] [address] Cony Mcelroy MD 04/18/2025 8:38 AM EDT Anesthesia Event [facility] [address] [place] [phone] Pantera White MD 04/18/2025 7:27 AM EDT - 04/18/2025 11:59 PM EDT Hospital Encounter [facility] [address] [place] [phone] Cony Mcelroy MD Hardin, Bryan D, MD Ancel, Brian C, CRNA Guagenti, Patricia L Epigastric pain; Diarrhea, unspecified type; Gastroesophageal reflux disease, unspecified whether esophagitis present Discharge Disposition: Home or Self Care 04/18/2025 Travel 04/17/2025 Travel 04/04/2025 4:00 PM EDT Office Visit [facility] Medicine Specialties [address], [address]nd [place] [address] Donaldo Terry MD Epigastric pain (Primary Dx); Diarrhea, unspecified type; Gastroesophageal reflux disease, unspecified whether esophagitis present 04/04/2025 Travel 04/03/2025 Travel 03/15/2025 3:30 PM EDT Consult [facility] [address], 1st [place] [address] Kendy Sanchez APRN Syncope, unspecified syncope type (Primary Dx) 03/15/2025 Travel 03/01/2025 10:13 AM EDT - 03/01/2025 11:59 PM EDT Hospital Encounter [facility] Pulmonary Function Testing [address] [place] [address] Dysautonomia-like disorder Discharge Disposition: Home or Self Care 03/01/2025 Travel 02/24/2025 Travel 02/16/2025 1:20 PM EDT Office Visit [facility] [place] [address] [facility], [address] [place] [phone] Courtney Torres MD Syncope and collapse (Primary Dx); Dysautonomia-like disorder 02/16/2025 Telephone [facility] [address] [facility], [address] [place] [address] 02/16/2025 Travel 02/15/2025 Travel from Last 3 [...] Tristan fagan Liver disease Brother 2 Scott ADD / [...] Recorded Patient Health Questionnaire-2 Score 0 12/15/2024 [facility] Questionnaire Answer Date [...] in a penitentiary (including now)? No 02/09/2024 [place] Depression Scale Answer Date Recorded [place] Depression Scale Total 6 08/08/2024 The thought [...] first t casi in the morning (EYE-APRON WORKER) to steady your nerves or to get rid of a hangover? 0 07/16/2024 CAGE Questionnaire Score 0 024 Utilities Answer Date Recorded In the past 12 months has [email or web address], gas, oil, or water [employer] threatened to shut off services in your [...] Description 06/09/2025 7:30 AM EST Office Visit [facility] Medicine Specialties [address], [address] [place] [address] Silverio Tma PA [address] [place] [phone] 06/15/2025 12:30 PM EST Office Visit [facility] [address], 1st [place] [address] Kendy Sanchez, GOLF PROFESSIONAL [address] [place] [address] 06/19/2025 8:00 AM EST Office Visit [facility] [place] [address], [address] [place] [address] Courtney Torres MD [address] [place] [address] 06/19/2025 12:30 PM EST Appointment [facility] [address] [place] [address] 06/21/2025 12:30 PM EST Appointment [facility] [address] [place] [address] Health Maintenance Due Date Last Done Comments [...] - Td or Tdap) 02/21/2020 02/20/2010, 04/26/2002 [id number] Vaccine (2 - Jasmine risk series) 03/21/2021 [...] medications. Staff Staff Role Sea Otero CRNA SAND MILL OPERATOR FACING SAND Cony Mcelroy MD Proceduralist Jean Padilla Endo Metal Cleaner Dana Brian Endo Nurse Pantera White MD [...] of bowel preparation was evaluated using the [place] Bowel Preparation Scale with scores of: right [...] administered medications. Staff Staff Role Sea Otero, DDEE SAND MILL OPERATOR FACING SAND Cony Mcelroy MD Proceduralist Jean Padilla Endo Metal Cleaner Dana Brian Endo Nurse Pantera White MD [...] [place]ia Aguero MD GI PROCEDURE ORDERABLES Susannah l Result * Surgical Pathology Exam (04/18/2025 8:49 AM EDT) Case Report Surgical Pathology Case: [id number] Authorizing Provider: Cony Mcelroy, Collected: 04/18/2025 0849 Ordering Location: [facility] Endoscopy Received: 04/18/2025 0918 Pathologist: Chet Harris MD Specimen: Stomach, biopsy 04/19/2025 3:22 PM EDT [facility] Final Diagnosis STOMACH, BIOPSY: - REACTIVE GASTROPATHIC CHANGES WITH FOCAL INTESTINAL METAPLASIA (PREDOMINANTLY COMPLETE) - NO EVIDENCE OF DYSPLASIA - NO EVIDENCE OF HELICOBACTER-LIKE ORGANISMS ON ROUTINE STAIN 04/19/2025 3:22 PM EDT [facility] at 1522 EDT Clinical Information R10.13 - Epigastric pain [ICD-10-CM] R19.7 - Diarrhea, unspecified type [ICD-10-CM] K21.9 - Gastroesophageal reflux disease, unspecified whether esophagitis present [ICD-10-CM] EGD: Normal 04/19/2025 3:22 PM EDT [facility] Gross Description A. BIOPSY Received in formalin labeled b iopsy, stomach , are 5 pink-reyes soft tissue fragments that range from 0.3-0.6 cm in greatest dimension. Entirely submitted in cassette A1. Cold Time: <1m Haritha Mccauley 04/19/2025 3:22 PM EDT [facility] Note: A resident was involved in the service. I attest I examined the relevant preparations for the specimens and confirmed the diagnosis or interpretation. 04/19/2025 3:22 PM EDT [facility] Tissue Stomach structure / Unknown 04/18/2025 8:49 AM EDT 04/18/2025 9:18 AM EDT us Cony Carter MD LAB PATHOLOGY ORDERAB LES Final Result Performing Organization Address City/[facility]/ZIP Co de Phone Number [facility] [address] [place] [address] * POCT , URINE (04/18/2025 7:53 AM EDT) POCT Test, Urine Negative Males and Non-pregnan t Females: Negative 04/18/2025 7:59 AM EDT [facility] Hot Plate Plywood Press Laborer ID Melinda Allen 04/18/2025 7:59 AM EDT HEALTHCARE LAB Device ID [id number] 04/18/2025 7:59 AM EDT [facility] Urine Urine specimen obtained by clean catch procedure / Unknown 04/18/2025 7:53 AM EDT 04/18/2025 7:59 AM EDT us Cony Carter MD LAB POINT OF CARE TEST DOCKED DEVICE UNSOLICITED RESULTS Final Result [facility] [address] [place] [address] * CPET ECG (03/01/2025 11:19 AM EDT) Anatomical Region Laterality Modality PFT 03/01/2025 10:4 9 AM EDT Narrative 03/01/2025 11:43 AM EDT Images from the original result were not included. [facility] Cardiopulmonary Exercise Testing Laboratory The [...] sinus rhythm at 71 bpm. Heart Rate House unable to be determined Pulmonary Performance/Ventilatory Response: [...] at peak exercise was 87 L/min (Breathing House Ratio: 70%). VE/VCO2 slope unable to be obtained. Conclusion: Due to early termination of the test (after 1:30-2:00 minutes) unable to accurately interpret the findings. Can consider repeating in the future if the patient is able to exercise. Tay Barraza DO Radio Assemblercommercial journeyman electrician Cardiovascular Medicine Director of Sports Cardiology [facility] [place] us Courtney Torres MD PFT ORDERABLES Final Result * (ABNORMAL) Cardiopulmonary Exercise Test (03/01/2025 11:19 AM EDT) [id number] 4.85(A) 3.04 - 4.60 L VYAIRE PFT FEV1 PRE 3.42 2.62 - 3.88 L VYAIRE PFT FEV1/FVC PRE 70.53(A) 74.27 - 94.96 % VYAIRE PFT LAJ07-99% PRE 2.34(A) 2.43 - 5.18 L/s VYAIRE PFT PEF PRE 8.68(A) 5.24 - 8.66 L/s VYAIRE PFT [id number] 126.25(A) 114.18 - 114.18 L/min VYAIRE PFT Anatomical Region Laterality Modality PFT 03/01/2025 10:2 6 AM EDT Narrative 03/01/2025 11:43 AM EDT Images from the original result were not included. [facility] Cardiopulmonary Exercise Testing Laboratory The [...] sinus rhythm at 71 bpm. Heart Rate House unable to be determined Pulmonary Performance/Ventilatory Response: [...] at peak exercise was 87 L/min (Breathing House Ratio: 70%). VE/VCO2 slope unable to be obtained. Conclusion: Due to early termination of the test (after 1:30-2:00 minutes) unable to accurately interpret the findings. Can consider repeating in the future if the patient is able to exercise. Tay Barraza DO Radio Assemblercommercial journeyman electrician Cardiovascular Medicine Director of Sports Cardiology [facility] [place] Courtney Torres MD PFT ORDERABLES Final Result * Catecholamines, fractionated, plasma (02/16/2025 2:17 PM EDT) CATECHOLAMINES, INTERP See Note 02/27/2025 12:36 AM EDT [facility] ([facility]) DOPAMINE <130 <=240 pmol/L 02/27/2025 12:36 AM EDT [facility] ([facility]) EPINEPHRINE 167 <=330 pmol/L 02/27/2025 12:36 AM EDT [facility] ([facility]) NOREPINEPHRINE 1597 1050 - 4800 pmol/L 02/27/2025 12:36 AM EDT [facility]) Blood Venous blood specimen / Unknown Venipuncture / Unknown 02/16/2025 2:17 PM EDT 02/16/2025 2:17 PM EDT Narrative [facility] NUNEZ) - 02/27/2025 12:36 AM EDT INTERPRETIVE INFORMATION:Epinephrine [...] reference intervals for this test in the [facility] Test Directory (CANDDi). This test was developed and its performance characteristics determined by [facility]. It has not been cleared or approved by the [place] Food and Drug Administration. This test was performed in a CLIA certified laboratory and is intended for clinical purposes. Performed By: [facility] [address] [place] [address] Advertising Sales Representative: Wilber Pardo MD, PhD CLIA Number: [id number] Courtney Torres MD LAB BLOOD ORDERABLES Final Re sult [facility]) [address] [place] [address] * Tryptase (02/16/2025 2:17 PM EDT) TRYPTASE 4.3 <=10.9 ug/L 02/19/2025 2:04 PM EDT [facility]) Serum Venous blood specimen / Unknown 02/16/2025 2:17 PM EDT 02/16/2025 2:17 PM EDT Narrative [facility]) - 02/19/2025 2:04 PM EDT Performed By: [facility] [address] [place] [address] Advertising Sales Representative: Wilber Pardo MD, PhD CLIA Number: [id number] Courtney Torres MD LAB BLOOD ORDERABLES Final Re sult Performing Organization Address [facility]/ZIP Co de Phone Number [facility]) [address] [place] [address] * (ABNORMAL) Ferritin, Serum (02/16/2025 2:17 PM EDT) Pathologist [facility] Ferritin, Serum 6(L) 13 - 150 ng/mL 02/16/2025 6:17 PM EDT [facility] Blood Venous blood specimen / Unknown Venipuncture / Unknown 02/16/2025 2:17 PM EDT 02/16/2025 2:17 PM EDT Courtney Torres MD LAB BLOOD ORDERABLES Final Re sult [facility] [address] [place] [address] * Cortisol (02/16/2025 2:17 PM EDT) Pathologist [facility] Cortisol 2.80 Before 10am: 3.7 - 19.4. After 5pm: 2.9 - 17.3 ug/dL 02/16/2025 6:36 PM EDT [facility] Comment:Testing performed on Verma Talent Acquisition Coordinator, standardized against LONGTERM Reference Standard concentration values assigned by LC-MS/MS and verified by BCR 192 and BCR 193 certified reference materials. Blood Venous blood specimen / Unknown Venipuncture / Unknown 02/16/2025 2:17 PM EDT 02/16/2025 2:17 PM EDT us Courtney Torres MD LAB REF LAB BLOOD AND FLUID O RD Final Result Performing Organization Address City/[facility]/ZIP Co de Phone Number [facility] [address] [place] [address] * HIV 1 & 2 Antibody/Antigen Screen (04/18/2024 10:13 AM EDT) [facility] HIV 1 & 2 Antibody/Antigen Screen Non Reactive Non Reactive 04/18/2024 12:07 PM EDT [facility] Comment:Screening for HIV 1 & 2 antibodies, and P24 antigen is NONREACTIVE. No confirmatory testing is required. Blood Venous blood specimen / Unknown Venipuncture / Unknown 04/18/2024 10:13 AM EDT 04/18/2024 10:13 AM EDT us Shalonda Davies APRN LAB BLOOD ORDERABLES Susannah l Result Performing Organization Address [facility] Co de Phone Number [facility] [address] [place] [address] * Hepatitis C Antibody - ED (02/07/2024 10:11 PM EDT) [facility] Hepatitis C Antibody Negative Negative 02/07/2024 11:11 PM EDT [facility] Blood Venous blood specimen / Unknown Venipuncture / Unknown 02/07/2024 10:11 PM EDT 02/07/2024 10:18 PM EDT us Mark Roger MD LAB BLOOD ORDERABLES Final Resu lt Performing Organization Address City/[facility] Co de Phone Number [facility] [address] [place] [address] from Last 3 Months or Most Recently Relevant to Health Maintenance Additional Health Concerns Active Problems Noted Date Diagnosed Date CPM S22 PP LABOR (OBSTETRICS) 02/24/2024 Insurance [place] Advance Directives * Full Code (Latest Code [...] Patient has decision-making capacity? Yes Care Teams Pci Security Consultant Relationship Specialty [place] [address] [place] [address] [place] [address] PCP - General 11/16/24 Angela Oleary, RN [facility] Registered Nurse Cardiology 02/17/24
--- OUTSIDE RECORDS SUMMARY | 2025-05-15 07:34 | XMS_ITS | Encounter Summary ---
Author Organization Healthcare Address [address] [id number] Care Team Providers Care Rides Supervisor Name Role Phone Angela Oleary RN Unavailable Unavailable Rey Wyatt MD Primary Care Provider [phone] Encounter Details Date Type Department Care Team (Late st Contact Info) Description 01/18/2025 Results Follow-Up [facility] Endocrinology [address] [place] [address] MunugotiHugohitha [address] [place] [id number] Social History Tobacco Use Types Packs/Day Years [...] any clubs o r organizations such as jew groups, unions, fraternal or athletic groups, or [...] 0 12/15/2024 [facility] of Occupat ional [facility] [...] in a jail (including now)? No 02/09/2024 [place] Depression Scale [...] drink first t casi in the morning (EYE-PIPEFITTER WELDER) to steady your nerves or to get [...] Visit [facility] Medicine Specialties [address], [address]nd [place] [address] Silverio Tam PA [address] [place] [address] 06/15/2025 12:30 PM EST Office Visit [facility] [address], [address] [place] [address] Kendy Sanchez APRN [address] [place] [address] 06/19/2025 8:00 AM EST Office Visit [facility] [place] [address], [address] [place] [address] Courtney Torres MD [address] [place] [address] 06/19/2025 12:30 PM EST Appointment [facility] Neuro[facility]iology [address] [place] [address] 06/21/2025 12:30 PM EST Appointment [facility] [address] [place] [phone] Scheduled Orders Name Type Priority Associated Diagnoses [...] documented as of this encounter Care Teams Rides Supervisor Relationship Specialty Start Date End Date Rey Wyatt MD [address] [facility] [address] [place] [address] PCP - General 11/16/24 Angela Oleary, RN [facility] Registered Nurse Cardiology 02/17/24 documented as of this encounter
--- OUTSIDE RECORDS SUMMARY | 2025-05-15 07:36 | XMS_ITS | Encounter Summary ---
Author Organization Healthcare Address [address] [place] [address] Care Team Providers Care Set Up Mechanic Coil Winding Machines Name Role Phone Molly Louis MD Primary Care Provider [phone] Angela Oleary RN Unavailable Unavailable Rey Wyatt MD Primary Care Provider Reason for Visit * Reason Onset Date Comments Med Refill 03/03/2024 Encounter Details Date Type Department Care Team ([facility] Contact Info) Description 03/03/2024 Refill Medical Office Building Obstetrics and Gynecology [address] [facility], [address] [place] [address] HodgemanEarle Villagomez MD [address] [facility] [address] [place] [address] Supervision of high risk in [...] Recorded Patient Health Questionnaire-2 Score 0 02/17/2024 [facility] of Occupat ional [...] in a residential (including now)? No 02/09/2024 [place] Depression Scale Answer Date Recorded [place] Depression Scale Total 8 02/22/2024 The thought [...] requesting to speak with a nurse- see [facility] for details about symptoms she is experiencing. * Telephone Encounter - Luh Keenan RN - 03/04/2024 1:56 PM EDT Patient has refills on file. Needs to call pharmacy. Luh Keenan, RN documented in this encounter Plan of Treatment Upcoming Encounters Date Type Department Care Team (Late st Contact Info) Description 06/09/2025 7:30 AM EST Office Visit [facility] Medicine Specialties [address] [place] [address] Silverio Tam PA [address] [place] [address] 06/15/2025 12:30 PM EST Office Visit [facility] [address], [address] [place] [address] Kendy Sanchez APRN [address] [place] [address] 06/19/2025 8:00 AM EST Office Visit [facility] [place] [facility] [address], [address] [place] [address] Courtney Torres MD [address] [place] [address] 06/19/2025 12:30 PM EST Appointment [facility] Neuro[facility]iology [address] [place] [address] 06/21/2025 12:30 PM EST Appointment [facility] [address] [place] [address] documented as of this encounter Goals Goal [...] documented as of this encounter Care Teams Set Up Mechanic Coil Winding Machines Relationship Specialty Start Date End Date Molly Louis MD [address] [place] [address] PCP - General Family Medicine 02/09/24 11/15/24 Rey Wyatt MD [address] [place] [address] PCP - General 11/16/24 Angela Oleary, RN [facility] Registered Nurse Cardiology 02/17/24 documented as of this encounter
--- OUTSIDE RECORDS SUMMARY | 2025-05-15 07:36 | XMS_ITS | Encounter Summary ---
Author Organization Healthcare Address [address] [id number] Care Team Providers Care Target Trimmer Name Role Phone Molly Louis MD Primary Care Provider [phone] Angela Oleary RN Unavailable Unavailable Rey Wyatt MD Primary Care Provider [phone] Reason for Visit * Reason Onset Date Comments Med Refill 03/03/2024 Encounter Details Date Type Department Care Team (Late st Contact Info) Description 03/03/2024 Refill [facility] Inpatient [address] [place] [address] Paris Marion MD [address] [place] [address] Social History Tobacco Use Types Packs/Day Years [...] Recorded Patient Health Questionnaire-2 Score 0 02/17/2024 [facility] of Occupat ional [facility] - Occupational Stress Questionnaire Answer [...] in a halfway (including now)? No 02/09/2024 [place] Depression Scale Answer Date Recorded [place] Depression Scale Total 8 02/22/2024 The thought [...] Description 06/09/2025 7:30 AM EST Office Visit [facility] Medicine Specialties [address], [address] [place] [address] Silverio Tam PA [address] [place] [address] 06/15/2025 12:30 PM EST Office Visit [facility] [address], [address] [place] [address] Kendy Sanchez, TRISTAN [address] [place] [address] 06/19/2025 8:00 AM EST Office Visit [facility] [place] [address], [address] [place] [address] Courtney Torres MD [address] [place] [address] 06/19/2025 12:30 PM EST Appointment [facility] [address] [place] [address] 06/21/2025 12:30 PM EST Appointment [facility] [address] [place] [address] documented as of this encounter [...] documented as of this encounter Care Teams Target Trimmer Relationship Specialty Start Date End Date Molly Louis MD [address] [place] [address] PCP - General Family Medicine 02/09/24 11/15/24 Rey Wyatt MD [address] [place] [address] PCP - General 11/16/24 Angela Oleary RN [facility] Registered Nurse Cardiology 02/17/24 documented as of this encounter
--- OUTSIDE RECORDS SUMMARY | 2025-05-15 07:37 | XMS_ITS | Encounter Summary ---
Author Organization [employer] ([place], [place], [place], [place]) Address [address] [place] [address] Care Team Providers Care Pharmacy District Manager Name Role Phone Molly Louis MD Primary Care Provider [phone] Padmini Wyatt APRN Primary Care Provider [phone] Encounter Details Date Type Department Care Team (Late st Contact Info) Description 04/14/2024 Outside Orders Psychiatric Admitting [address] [place] [address] Silverio Tam, PA [address] [facility] [address] 2nd Floor Wing [place] [id number] Blood in stool (Primary Dx) Social History [...] Date Guerrero rded Speak language other than Iranian at home Not on file 08/13/2023 Want [...] 87(H) <=49 ug/g 04/19/2024 11:26 PM EDT [facility] Comment: REFERENCE INTERVAL: Calprotectin, Fecal by Immunoassay Less than 50 ug/g.........Normal 50-120 ug/g...............Borderline elevated, test should be re-evaluated in 4-6 weeks. 121 ug/g or greater.......Elevated Performed By: [email or web address] [address] [place] [address] Science Teacher: Wilber Pardo MD, PhD CLIA Number: [id number] Stool 04/14/2024 11:0 6 AM EDT 04/14/2024 11:47 AM EDT us [facility] - GENERAL ORDERAB LES Final Result Performing Organization Address [facility]/State/[facility] Co de Phone Number [facility] [address] [place] [address], [facility] [phone] documented in this encounter Visit Diagnoses Diagnosis Blood in stool- Primary documented in this encounter Care Teams Pharmacy District Manager Relationship Specialty Start Date End Date Molly Louis MD [address] [place] [address] PCP - General 08/22/24 04/11/25 Padmini Wyatt APRN [address] [address] PCP - General Nurse Practitioner 04/12/25 documented as of this encounter
--- OUTSIDE RECORDS SUMMARY | 2025-05-15 07:37 | XMS_ITS | Encounter Summary ---
Author Organization Healthcare Address [address] [place] [address] Care Team Providers Care Garden Labourer Name Role Phone Molly Louis MD Primary Care Provider [phone] Angela Oleary RN Unavailable Unavailable Rey Wyatt MD Primary Care Provider [phone] Reason for Visit * Reason Onset Date Comments Med Refill 07/19/2024 Encounter Details Date Type Department Care Team (Late st Contact Info) Description 07/19/2024 Refill [facility] [address], [address] [place] [address] Paris Marion MD [address] [place] [address] Social History Tobacco Use Types Packs/Day Years [...] Recorded Patient Health Questionnaire-2 Score 0 06/22/2024 [facility] - Occupational Stress Questionnaire [...] in a mcc (including now)? No 02/09/2024 Richmond Depression Scale Answer Date Recorded Richmond Depression Scale Total 8 02/22/2024 The thought [...] drink first t casi in the morning (EYE-FLAKING ROLL OPERATOR) to steady your nerves or to [...] [facility] [address], [address] [place] [address] Silverio Tam PA [address] [place] [address] 06/15/2025 12:30 PM EST Office Visit [facility] [address], [address] [place] [address] Kendy Sanchez APRN [address] [place] [address] 06/19/2025 8:00 AM EST Office Visit [facility] [place] [address], [address] [place] [address] Courtney Torres MD [address] [place] [address] 06/19/2025 12:30 PM EST Appointment [facility] [address] [place] [address] 06/21/2025 12:30 PM EST Appointment [facility] [address] [place] [address] documented as of this encounter Goals Goal [...] documented as of this encounter Care Teams Garden Labourer Relationship Specialty Start Date End Date Molly Louis MD [address] [place], [place] [phone] PCP - General Family Medicine 02/09/24 11/15/24 Rey Wyatt MD [address] [place] [address] PCP - General 11/16/24 Angela Oleary, RN [facility] Registered Nurse Cardiology 02/17/24 documented as of this encounter
--- OUTSIDE RECORDS SUMMARY | 2025-05-15 07:37 | XMS_ITS | Referral Summary ---
Author Organization [employer] ([place], [place], [place], [place]) Address [address] [place] [address] Care Team Providers Care Telephonic Rn Name Role Phone Padmini Wyatt APRN Primary Care Provider Encounters Date Type Department Care Team Description 04/12/2025 Travel 04/12/2025 12:02 PM EDT - 04/12/2025 11:59 PM EDT Hospital Encounter [facility] Procedure Lab [address] [place] [address] Syncope Discharge Disposition: Home or [...] Date Guerrero rded Speak language other than British at home Not on file 08/13/2023 Want [...] on file Medical Devices Implanted Type Area Warehouse Receiver Device Identifier Shelf Expiration Date Model / Serial / Lot K-Wire [id number] - [id number] Implanted:Qty: 1 on 08/04/2022 by Rex Rene MD at [facility] IMPLANTS Right: Hand ANNIA:[employer] [id number] / / Wire K-Wire 1.6mm [id number] - [id number] Implanted:Qty: 1 on 08/04/2022 by Rex Rene MD at [facility] IMPLANTS Right: Hand BUCK MED GRP:BUCK MED [...] from Last 3 Months Insurance MEDICAID [place] Advance Directives For more information, please contact: [phone] * Full Code (Latest Code Status on File) Date Activated Date Inactivated Comments 08/04/2022 6:03 AM 08/04/2022 11:35 AM Care Teams Telephonic Rn Relationship Specialty Start Date End Date Padmini Wyatt, TANKER DRIVER [address] [address] PCP - General Nurse Practitioner 04/12/25
--- OUTSIDE RECORDS SUMMARY | 2025-05-15 07:37 | XMS_ITS | Clinical Summary ---
Author Organization [employer] ([place], [place], [place], [place]) Address [address] [place] [address] Care Team Providers Care Account Liaison Name Role Phone Padmini Wyatt FOUNTAIN PEN NIBS INSPECTOR Primary Care Provider Allergies Active Allergy Reactions [...] - 04/12/2025 11:59 PM EDT Hospital Encounter [facility] Procedure Lab [address] [place] [address] Syncope Discharge Disposition: Home or Self Care [...] Date Guerrero rded Speak language other than Vincentian at home Not on file 08/13/2023 Want [...] this topic Medical Devices Implanted Type Area Color Specialist Device Identifier Shelf Expiration Date Model / Serial / Lot K-Wire [id number] - [id number] Implanted:Qty: 1 on 08/04/2022 by Rex Rene MD at [facility] IMPLANTS Right: Hand ANNIA:[employer] [id number] / / Wire K-Wire 1.6mm [id number] - [id number] Implanted:Qty: 1 on 08/04/2022 by Rex Rene MD at [facility] IMPLANTS Right: Hand [employer] MED GRP:[employer] TECH / / Procedures Procedure Name Priority [...] Final Result from Last 3 Months Insurance [id number] (Home) [address] [place] [address] [place]ICA[place] Advance Directives For more information, please contact: [phone] * Full Code (Latest Code Status on File) Date Activated Date Inactivated Comments 08/04/2022 6:03 AM 08/04/2022 11:35 AM Care Teams Account Liaison Relationship Specialty Start Date End Date Padmini Wyatt APRN [address] [address] PCP - General Nurse Practitioner 04/12/25
--- OUTSIDE RECORDS SUMMARY | 2025-05-15 07:37 | XMS_ITS | Encounter Summary ---
Author Organization Healthcare Address [address] [place] [address] Care Team Providers Care Negative Checker Name Role Phone Molly Louis MD Primary Care Provider [phone] Angela Oleary RN Unavailable Unavailable Rey Wyatt MD Primary Care Provider [phone] Reason for Visit * Reason Onset Date Comments Med Refill 03/23/2024 Encounter Details Date Type Department Care Team ([facility] Contact Info) Description 03/23/2024 Refill Medical Office Building Obstetrics and Gynecology [address], [address] [place] [address] Shalonda Davies, TUBE ROLLER [address] [place] [address] Social History Tobacco Use Types [...] Health Questionnaire-2 Score 0 02/17/2024 [facility] - [...] in a snf (including now)? No 02/09/2024 Bertrand Depression Scale Answer Date Recorded Bertrand Depression Scale Total 8 02/22/2024 The thought [...] drink first t casi in the morning (EYE-TELEMARKETER) to steady your nerves or to get [...] Description 06/09/2025 7:30 AM EST Office Visit [facility] Medicine Specialties [address], [address] [place] [address] Silverio Tam PA [address] [place] [address] 06/15/2025 12:30 PM EST Office Visit [facility] [address], [address] [place] [address] Kendy Sanchez, TUBE ROLLER [address] [place] [address] 06/19/2025 8:00 AM EST Office Visit [facility] [place] [address], [address] [place] [address] Courtney Torres MD [address] [place] [address] 06/19/2025 12:30 PM EST Appointment [facility] [address] [place] [address] 06/21/2025 12:30 PM EST Appointment [facility] [address] [place] [address] documented as of this encounter [...] documented as of this encounter Care Teams Negative Checker Relationship Specialty Start Date End Date Molly Louis MD [address] [place] [address] PCP - General Family Medicine 02/09/24 11/15/24 Rey Wyatt MD [address] [place], [place] [phone] PCP - General 11/16/24 Angela Oleary, RN [facility] Registered Nurse Cardiology 02/17/24 documented as of this encounter
--- OUTSIDE RECORDS SUMMARY | 2025-05-15 07:37 | XMS_ITS | Encounter Summary ---
Author Organization Healthcare Address [address] [place] [address] Care Team Providers Care Barrel Roller Operator Name Role Phone Pcp, No Primary Care Provider UnavailMolly Newman MD Primary Care Provider [phone] Angela Oleary RN Unavailable Unavailable Rey Wyatt MD Primary Care Provider [phone] Encounter Details Date Type Department Care Team (Late Contact Info) Description 01/22/2024 Orders Only External Location [address] [place] [address] Provider, External Social History Tobacco Use Types [...] Description 06/09/2025 7:30 AM EST Office Visit [facility] Medicine Specialties [address], [address] [place] [address] Silverio Tam PA [address] [place] [address] 06/15/2025 12:30 PM EST Office Visit [facility] [address], [address] [place] [address] Laura Kendy, LAMINATOR [address] [place] [address] 06/19/2025 8:00 AM EST Office Visit [facility] [place] [address] [place] [address] Courtney Torres MD [address] [place] [address] 06/19/2025 12:30 PM EST Appointment [facility] [address] [place] [address] 06/21/2025 12:30 PM EST Appointment [facility] [address] [place] [address] documented as of this encounter Procedures Procedure [...] documented as of this encounter Care Teams Barrel Roller Operator Relationship Specialty Start Date End Date Pcp, No [address] [place] [address] PCP - General Family Medicine 01/22/24 02/08/24 Molly Louis MD [address] [place] [address] PCP - General Family Medicine 02/09/24 11/15/24 Rey Wyatt MD [address] [place] [address] [place], [place] [phone] PCP - General 11/16/24 Angela Oleary, RN [facility] Registered Nurse Cardiology 02/17/24 documented as of this encounter
--- OUTSIDE RECORDS SUMMARY | 2025-05-15 07:37 | XMS_ITS | Data Portability ---
Author Organization [facility] & MELINA Brower ADMIN Address [address] [place] [id number] Care Team Providers Care Director Of Scout Work Name Role Phone MOLLY BOLTON Primary Care Provider Assessment No assessment recorded. Plan of Treatment Reminders Order Date Submit Date Provider Last Modified By Organization Details Last Modified Time Details Appointments MENTAL HEALTH 60 2024 11:30A M THOMAS KIRBYP Not available Not available Not available Lab urinalysi s, dipstick 2023 024 [email or web address] [facility]- Floor 2, 606, [address] [facility], [address], [place], [address], 12/14/2023 13:09:11 culture, urine 2023 024 [facility] (Add On Labs Only), [address] [place] [address] [place], [address], 12/14/2023 19:07:28 Referral behaviora health referral - Anxiety not respondin g to buspirone . patient. Counselin g and medicatio n managemen t. 2023 024 KE[facility], [address] [place], [address], 04/05/2024 14:52:37 dermatolo gist referral 2023 024 [facility], [address] [place] [address], [id number], 10/20/2023 12:02:18 Procedures None recorded. Surgeries None recorded. Imaging None recorded. Medication Orders doxylamin e 10 mg-pyrido xine (vit B6) 10 mg tablet,de layed release [address] [facility], [address] [place] [address] [address], [place], [place], [id number], 12/14/2023 11:36:15 cephalexi n 500 mg tablet [address] [facility], [address] [place] [address] [address], [place], [place], [id number], 02/02/2024 08:44:10 ondansetr on 4 mg disintegr ating tablet [address] [facility], [address] [place] [address] [address], [place], [place], [id number], 12/14/2023 11:38:18 labetalol 100 mg tablet [address] [facility], [address] [place] [address] [address], [place], [place], [id number], 02/02/2024 08:44:37 Patient TargetsNo targets recorded. Patient Instructions Encounter Date Encounter Id Patient Instructions Last Modified By Organization Details Last Modified Time 09/22/2023 [id number] Follow-up for yearly exam 02/2024 and prn [email or web address] Not available 09/22/2023 18:44:56 12/14/2023 [id number] Follow-up prn [email or web address] Not available 12/14/2023 21:37:32 02/02/2024 [id number] Follow-up prn (patient's current symptoms to be managed by cardiology and OB/MFM). 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 patient. Counseling and medication management. Referring Physician: Molly Bolton [facility] Medicine, Encounter Date: 03/22/2024 Results Created [...] 2 - 3 MONTH S Not Available [facility] (Pre-Op Clinic) [address] [place] [address] [place], [address], 12/02/2023 17:18:42 12/02/19 24 12/02/2023 HCG BETA QUANT ITATI VE note Unles s other juan noted testi ng perfo rmed at: [facility] [address] [place] [address] Micah plascencia MD Not Available [facility] (Pre-Op Clinic) [address] [place] [address] [place], [address], 12/02/2023 17:18:42 12/14/19 24 12/14/2023 CULTU RE URINE W PRESU MP ID results [facility] 12-14 912 No Signi fican t Growt h at 1 Day [facility] 2024- 05-22 711 No Signi fican t Growt h at 2 Days Not Available [facility] (Pre-Op Clinic) [address] [place], [address], 12/16/2023 07:13:14 12/14/19 24 12/14/2023 CULTU RE URINE W PRESU MP ID note Unles s other juan noted testi ng perfo rmed at: [facility] [address] [place] [address] Micah plascencia MD Not Available [facility] (Pre-Op [facility]) [address] [place] [address] [place], [address], 12/16/2023 07:13:14 12/14/19 24 12/14/2023 urina lysis , dipst ick Leukocytes (reference range) small Not Available [facility]- Floor 2, 606 [address] [facility] [address] [place] [address], [address], 12/14/2023 11:20:55 12/14/19 24 12/14/2023 urina lysis , dipst ick Nitrite (reference range:) negati ve Not Available [facility]- Floor 2, [address] [place] [address], [address], 12/14/2023 11:20:55 12/14/19 24 12/14/2023 urina lysis , dipst ick Urobilinogen (reference range) 0.2 Not Available [facility]- Floor 2, [address] [place] [address], [address], 12/14/2023 11:20:55 12/14/19 24 12/14/2023 urina lysis , dipst ick Protein (reference range) 30 Not Available [facility]- Floor 2, 606 [address] [facility] [address] [place] [address], [address], 12/14/2023 11:20:55 12/14/19 24 12/14/2023 urina lysis , dipst ick pH (reference range 5-8.5) 5.5 Not Available [facility]- Floor 2, [address] [facility], [place], [address], 12/14/2023 11:20:55 12/14/19 24 12/14/2023 urina lysis , dipst ick Blood (reference range:) negati ve Not Available [facility]- Floor 2, [address] [facility], [place], [address], 12/14/2023 11:20:55 12/14/19 24 12/14/2023 urina lysis , dipst ick Specific [place] (reference range) 1.030 Not Available [facility]- Floor 2, [address] [facility], [place], [address], 12/14/2023 11:20:55 12/14/19 24 12/14/2023 urina lysis , dipst ick Ketone (reference range) modera te Not Available [facility]- Floor 2, [address] [facility], [place], [address], 12/14/2023 11:20:55 12/14/19 24 12/14/2023 urina lysis , dipst ick Bilirubin (reference range) small Not Available [facility]- Floor 2, [address] [facility], [place], [address], 12/14/2023 11:20:55 12/14/19 24 12/14/2023 urina lysis , dipst ick Glucose (reference range) negati ve Not Available [facility]- Floor 2, [address] [facility], [place], [address], 12/14/2023 11:20:55 12/14/19 24 12/14/2023 urina lysis , dipst ick Color (reference range: yellow-brown ) Brown Not Available [facility]- Floor 2, [address], [place], [address], 12/14/2023 11:20:55 11/20/19 24 11/20/2023 CT, abdom en + pelvi s, w/ contr ast No observ ation record ed. [address] Registration [address] [facility] [place], [address], 11/20/2023 22:38:19 01/12/20 24 01/12/2024 XR, chest No observ ation record ed. [address] (Registration ) [address] [place] [address] [place], [address], 01/12/2024 13:53:47 01/12/20 24 01/12/2024 US, obste tric No observ ation record ed. [address] (Registration ) [address] [place] [address] [place], [address], 01/12/2024 17:05:57 01/20/20 24 01/20/2024 elect rocar diogr am No observ ation record ed. [email or web address] [address], [place], [address], 01/21/2024 12:30:49 01/22/20 24 01/22/2024 imagi ng inter preta tion No observ ation record ed. [email or web address] [address], [place], [address], 01/25/2024 11:42:05 01/22/20 24 01/22/2024 imagi ng inter preta tion No observ ation record ed. [email or web address] [address], [place], [address], 01/25/2024 11:41:58 02/06/20 24 02/05/2024 elect rocar diogr am, routi ne ECG, 12 leads min No observ ation record ed. [address], [place], [place], [address], 02/07/2024 14:15:54 04/27/2004/27/2024 rhyth m strip , EKG* No observ ation record ed. [email or web address] [facility] [address], [place], [address], 04/28/2024 15:07:12 07/27/19 25 07/27/2024 imagi ng inter preta tion No observ ation record ed. [email or web address] [facility] [address], [place], [place], [address], 07/28/2024 10:45:22 07/27/19 25 07/27/2024 elect harris chew am No observ ation record ed. [email or web address] [facility] [address], [place], [address], 07/28/2024 10:45:06 Result Notes None recorded. Problems Name Problem SNOMED Code Status Onset Date Resolution Date Notes Provider Name and Address Organization Details Recorded Time Gilbert's syndrome 38182696 Active 2022 Not Available [facility] 4 05:51:07 Gallstone 553727784 Active 2022 Not Available [facility] 4 05:51:07 Fracture of hand 20510502 Active 2022 Had two pins placed of the fifth metatar petr. Not Available [facility] 4 05:51:07 Sore throat 041944252 Active 2022 Not Available [facility] 4 05:51:07 Hematochezia 175881999 Active 2022 Not Available [facility] 4 05:51:07 Diarrhea 67248353 Active 2022 Not Available [facility] 4 05:51:07 Nausea 526956221 Active 2022 Not Available [facility] 4 05:51:07 Generalized abdominal pain 336219648 Active 2022 Not Available [facility] 4 05:51:07 Problem Notes None recorded. Procedures Surgical History Date Name Laterality Status Provider Name and Address Organization Details Recorded Time 07/31/19 24 laparoscopic cholecystectomy completed Teresa Garrett [place] - [facility] [place] 08/03/2023 09:25:16 11/09/19 23 Date of Last Pap Smear completed Deb Clark [place] - [facility] [place] 05/28/2023 14:21:22 07/27/19 23 Other completed Shani KRISHNAN - [facility] [place] [facility] [place] 08/20/2023 13:45:01 03/03/20 22 EGD/Endoscopy completed Kymberly Gar [place] - [facility] [place] 05/19/2023 08:29:18 07/27/19 02 ENT Surgery completed Shani Nailso [place] - [facility] [place] 08/20/2023 13:45:01 07/27/19 01 ENT Surgery completed Shani Nailso [place] - [facility] - [place] [facility] [place] 08/20/2023 13:45:01 Tonsillectomy completed Shani KRISHNAN - [facility] [place] 07/08/2023 12:32:45 Dilation and Curettage completed Deb Clark [place] - [facility] [place] 01/26/2024 09:25:24 Imaging Results None recorded. Procedure Notes None recorded. Medical Equipment None Reported. Allergies Allergen ID Allergen Name Allergen Category Reaction Reaction Severity Criticality Documentation Date Start Date Code Code System Note Provider Name and Address Organization Details Recorded Time 053891 cinnamon preparati on food,medi cation other severe Not available 12/09/2023 44750 5 RxNorm throa t aurelio s Deb Montanae null, [place] - [facility] [place] 4 09:50:32 [address] Augmentin medicatio n rash Not available Not available 09/18/2022 98803 2 RxNorm Anmol Pelayo null, [place] - [facility] [place] [facility] [place] 3 12:59:17 62435 Product containin g penicilli n (product) medicatio n Not available Not available Not available 09/18/2022 39061 8001 SNOMED Anmol Pelayo [facility], [place] - [facility] - [place] & [place] 3 12:59:25 Medications Name Sig Start Date [...] Updated DateTime 4 162.56 cm 24.6 kg/m2 80692.1 5 g 98.2 [degF] 99 % 99 % 98 /min 110/80 mm[Hg] Francy KRISHNAN MELINA [facility] [place] 4 15:41:55 Date Recorded Body height Body mass index (BMI) Body weight Body temperature Oxygen saturation Oxygen saturation in Arterial blood by Pulse oximetry Heart rate Systolic And Diastolic Provider Name and Address Organization Details Last Updated DateTime 4 162.56 cm 23.6 kg/m2 43509.8 7 g 98.5 [degF] 97 % 97 % 88 /min 140/80 mm[Hg] Francy SUMMERS [facility] [place] 4 10:46:22 Date Recorded Body height Body mass index (BMI) Body weight Body temperature Oxygen saturation Oxygen saturation in Arterial blood by Pulse oximetry Heart rate Systolic And Diastolic Provider Name and Address Organization Details Last Updated DateTime 4 162.56 cm 20.8 kg/m2 40620.6 8 g 98.6 [degF] 99 % 99 % 100 /min 110/70 mm[Hg] Francy SUMMERS [facility] [place] 4 08:35:15 Date Recorded Body height Body mass index (BMI) Body weight Body temperature Oxygen saturation Oxygen saturation in Arterial blood by Pulse oximetry Heart rate Systolic And Diastolic Provider Name and Address Organization Details Last Updated DateTime 4 162.56 cm 20.4 kg/m2 49733.4 9 g 98.7 [degF] 100 % 100 % 76 /min 110/60 mm[Hg] Francy SUMMERS [facility] [place] 4 08:35:40 Date Recorded Body height Body mass index (BMI) Body weight Body temperature Oxygen saturation Oxygen saturation in Arterial blood by Pulse oximetry Heart rate Systolic And Diastolic Provider Name and Address Organization Details Last Updated DateTime 4 162.56 cm 20.8 kg/m2 66963.6 8 g 98.8 [degF] 99 % 99 % 98 /min 100/60 mm[Hg] Francy SUMMERS [facility] [place] 4 09:07:24 Social History Question Answer Notes LastModified by Kalyan Jewellers Details LastModified Time Tobacco Smoking Status Former Smoker Francy goodman, [place] SUMMERS [facility] [place] 03/17/2023 09:23:30 Do You Have An Advance Directive? No [email or web address] Information not available 05/28/2023 Are You Blind Or Do You Have Difficulty Seeing? No [email or web address] Information not available 05/28/2023 When Did You Quit Smoking? 1-5yearssinc elastcigaret te Information not available 08/13/2023 Are You Passively Exposed To Smoke? No [email or web address] Information not available 05/28/2023 How Many Years Have You Smoked Tobacco? 12 [email or web address] Information not available 03/17/2023 Sex: Female Functional Status Question Answer Note LastModified by Kalyan Jewellers Details LastModified Time Do you use any illicit or recreational drugs? No [email or web address] Information not available 03/17/2023 Do you or have you ever used any other forms of tobacco or nicotine? Yes Information not available 08/13/2023 What is your level of alcohol consumption? None [email or web address] Information not available 03/17/2023 Do you or have you ever used e-cigarettes or vape? Current user of electronic cigarettes Information not available 08/13/2023 What is your exercise level? Occasional [email or web address] Information not available 05/28/2023 Mental Status None [...] Not available 2023 11:15:11 Sister Heart disease [email or web address] Not available 2023 13:44:57 Unspecified Relation Family [...] Recorded Time IPV 2 completed Not Available [facility] 08/05/2023 05:51:08 MMR 2 completed Not Available [facility] 08/05/2023 05:51:08 COVID-19 vaccine, vector-nr, rS-Ad26, PF, 0.5 mL 1 completed Not Available [facility] 08/05/2023 05:51:08 Tdap 0 completed Not Available [facility] 08/05/2023 05:51:08 varicella 1 completed Not Available [facility] 08/05/2023 05:51:08 HPV, quadrivalent 1 completed Not Available [facility] 08/05/2023 05:51:08 Hep A, ped/adol, 2 dose 1 completed Not Available [facility] 08/05/2023 05:51:08 Hep A, ped/adol, 2 dose 0 completed Not Available [facility] 08/05/2023 05:51:08 DTaP, unspecified formulation 2 completed Not Available [facility] 08/05/2023 05:51:08 Past Encounters Encounter ID Performer Location Encounter Start Date Encounter Closed Date Diagnosis/Indication Diagnosis SNOMED-CT Code Diagnosis ICD10 Code Diagnosis IMO Codes Diagnosis Note [id number] Marizol Paez MD [facility] [place] [facility] [address] [facility] [place] [id number] 09/18/2022 12:53:09 09/18/2022 13:34:47 Pain in throat 641630490 R07.0 Strep swab in the office today was negative. Suggest this is a viral issue and will take time to resolve. Nausea 660371605 R11.0 Likely due to her underlying illness. Son also recently diagnosed with a viral illness. She understand s the importance of pushing fluids. Gilbert's syndrome 67158 000 E80.4 Pityriasis versicolor 56 468919 B36.0 Suggested OTC lamisil cream. [id number] BOOKER OLIVARES [facility]- Floor 1, [address] [place] [address] Drive,[facility] [address] [place] [id number] 11/26/2022 12:14:40 11/26/2022 12:41:53 Nail deformity 629191115 L60.8 no obvious sign of fungal infection. Nail loss may be related to initial injury. Continue to monitor at home, follow up with any new or worsening symptoms. [id number] Cassie Jimenez [facility]- Floor 1, [address] [place] [address],[facility] [address] [place] [id number] 01/21/2023 07:59:03 01/21/2023 08:28:49 Cough 30700991 R05.1 Generalize d aches and pains 45360041 R52 Exposure t o influenzavirus 739957934 Z20.828 Nausea 694942697 R11.0 Viral syndrome 086306890 B34.9 [id number] Saskia Soriano APRN [facility]- Floor 1, [address] [place] [address],[facility] [address] [place] [id number] 02/10/2023 15:16:39 02/10/2023 15:42:50 Sore throat 978577644 J02.9 We will contact with results of throat culture when available and treat if indicated. Increase fluid intake until better, Tylenol/Mo juan ramon as needed, salt water gargle twice a day. Follow up with any new or worsening symptoms. Discard toothbrush as we discussed. Exposure t o SARS-CoV-2 694650131 Z20.822 Continue with hand hygiene, social distancing and vaccines as recommende d by PCP. Viral syndrome 691103496 B34.9 Possibly HFMD, discussed supportive measures. [id number] Molly Bolton MD [facility] Primary Care- Floor 2, [address] [facility] [address] [place] [address] 03/17/2023 09:03:37 03/17/2023 10:09:55 Irritable bowel syndrome 11820833 K58.9 Continue zofran prn nausea. Referral to GI for futher work-up. 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 Continue meloxicam and tylenol. Referring to Ortho Spine as precaution . Follow-up in 6 weeks and prn [id number] Indu Decker NP [facility] [address] [place] [address] [address] [place] [id number] 05/19/2023 07:54:57 05/19/2023 16:07:23 Hematochezia 243871979 K92.1 6-7 month history hematochez ia, describes large amount at times. Recommend labs today. Recommend colonoscop y to further evaluate r/o colitis, internal hemorrhoid s, other. Pt is scheduled for Colon 06/25 @ 9:00 AM Diarrhea 21912108 R19.7 History of alternatin g constipati on diarrhea. Experienci ng worsening diarrhea over the past 2 weeks. Plan for x-ray abdomen KUB to rule out underlying stool burden. Recommend colonoscop y with random colon biopsies to rule out underlying colitis, other. Plan for labs today. Patient's brother with history of Crohn's. Nausea 088729490 R11.0 Daily episodes of nausea ongoing for several years. EGD reviewed 03/03/[address] Leslie appeared normal, pathology negative for H pylori or celiac. Recommend gallbladde r US to further evaluate. Generalize d abdominal pain 143585847 R10.84 Episodes of upper abdominal pain radiating down throughout her abdomen. Plan for gallbladde r ultrasound as above as well as labs. Recommend colonoscop y to further evaluate. No etiology identified on EGD from 02/2022. 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 Continue meloxicam (if makes to drowsy can take tylenol or ibuprofen instead, discussed taking NSAIDs with food so as not to upset her stomach). Continue amitriptyl line (discussed that it is ok for her to take 10-20 mg rather than 5 mg). Nausea 838874820 R11.0 Following with GI and has upcoming HIDA scan and colonoscop y scheduled. Continue zofran prn. [id number] Francy Su, [facility] General [facility] - [address], [address] [place] [address] 07/09/2023 13:46:06 07/09/2023 15:31:08 Chronic cholecystitis 16171456 K81.1 I do feel that she is [...] low-fat diet. Irritable bowel syndrome with diarrhea 582745294 K58.0 I do think she has irritable bowel syndrome with diarrhea we did discuss that laparoscop ic cholecyste ctomy will probably not take care of all of those symptoms. She understand s. 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 Suspect possible pityriasis alba vs. pityriasis versicolor . Will treat for both possibilit ies with combinatio n steroid-an tifungal cream (as planning to have abdominal surgery soon, suggested just treating her back at this time and waiting until wounds heal after surgery to treat her abdomen. Chronic cholecystitis 20 704149 K81.1 Patient scheduled for cholecyste ctomy 07/24/23 Low back p ain co-occurrent with neuralgia of right sciatic nerve 3403042619 33390 M54.41 She is now following with Orthopedic s and will do PT after she has her gallbladde r surgery. [id number] Saskia Soriano, [employer] [facility] Immediate Care- Floor 1, [address] [facility],[place] [address] [place] [id number] 07/24/2023 08:07:21 07/24/2023 08:47:22 Sore throat 854779857 J02.9 Suspect viral etiology. Continue with symptom management , salt water gargles BID. Follow up if no improvemen t in 3-5 days or sooner with worsening symptoms. Cough 39331291 R05.1 Suspect that this is viral. Recommend [...] in 7-10 days, sooner with worsening symptoms. [id number] Francy Su DO [place] [facility] [facility] - [address] [facility], [address] [place] [id number] 08/13/2023 11:07:19 08/17/2023 14:08:53 Postoperative visit 600413159 Z48.89 Status post laparoscop ic cholecyste ctomy she is doing well. We discussed that if her loose stools continue, I can give her cholestyra mine if needed. She is going to let me know. She should continue lifting restrictio ns for another couple of weeks. She is to let me know if she needs to see me again. [id number] Molly Bolton MD [facility] Primary Care- Floor 2, [address] [facility] [address] [place] [id number] 09/22/2023 14:35:17 09/22/2023 16:07:30 Generalized rash 534777587 R21 Suspected pityriasis alba. Have treated with both topical steroids and antifungal s without resolution . Referring to dermatolog y for further evaluation . History of cholecystectomy 056616292 Z90.49 Recovering well from recent cholecyste ctomy for chronic cholecysti tis. Low back p ain co-occurrent with neuralgia of right sciatic nerve 3530476895 42350 M54.41 Following w/ spine surgeon Dr. Lobato who has ordered back braces and PT. Insomnia 785880570 G47.0 0 Ok to use benadryl prn sleep. I have prescribed amitriptyl ine in past for her sciatica and said she might try this prn in place of the benadryl as it might also help with sleep. [id number] Molly Bolton MD [facility] Primary Care- Floor 2, [address] [facility] te [place] [id number] 12/14/2023 10:01:42 12/14/2023 12:08:18 Abnormal urinalysis [id number] R82.90 Hospital UA w positive LE and UA today in clinic with small LE. Given symptoms of abdominal cramping and ongoing diarrhea, will treat for possible UTI per below and send for culture Acute urin glenn tract infection [id number] N39.0 Will start treatment with keflex as and follow-up urine culture and adjust antibiotic s prn Palpitations 53245142 R0 0.2 Stop metoprolol and start labetalol. Patient has upcoming cardiology appt. Cardiac testing including troponins and TTE have so far been reassuring . Holter monitor results pending. Nausea and vomiting 1693 1999 R11.2 Start doxylamine -pyridoxin e for likely related nausea. Nausea [id number] R11.0 Discussed trying doxylamine first for nausea and if breakthrou gh nausea can use zofran prn (class B in , likely safe) test positive 663055756 Z32.01 Patient has follow-up US later this week (elevated HCG but US has yet to confirm IUP) [id number] Molly Bolton MD [facility] Primary Care- Floor 2, 606 [address] [facility] te DAVIDEloxxTENZIN Viyet [address] 02/02/2024 08:22:33 02/02/2024 09:24:10 Impaired mobility 61141337 Z74.09 Due to her POTS (becomes lightheade [...] as well. Postural o rthostatic tachycardia syndrome 750752454 G90.A Receiving periodic iv fluid injections ordered by OB and following with cardiology Tachycardia 6014441 R00. 0 [place] to be 2/2 to dehydratio n and POTS. Currently wearing holter monitor. Following with cardiology . Continue metoprolol . Hyperemesi s gravidarum 87039887 O21.0 Continue zofran. Following with OB Second tri mester 73188377 Z34.92 Following with OB. Anxiety 55558705 F41.9 Continue buspirone and hydroxyzin e prn. [id number] Molly Bolton MD [facility] Primary Care- Floor 2, [address]ela[address] [place] [address] 03/22/2024 08:25:27 03/23/2024 07:20:01 Anxiety disorder 117844844 F41.9 Continue buspirone. Collected gene sight testing today to help guide medication management (with plan to forward to her provider when establishe s). Referring to for medication management and counseling . Postural o rthostatic tachycardia syndrome 801975412 G90.A Receiving periodic iv fluid infusions ordered by OB and following with cardiology Anemia 969445538 D64.9 Iv iron infusions being considered by her OB Hematochezia 211338064 K 92.1 Following with GI. Scopes being post-poned until after she delivers. [id number] FLAVIA KIRBYt ic Intervent ions at [facility] [address] [place] [address] 05/11/2024 10:46:21 05/18/2024 10:10:23 [id number] Molly Bolton MD [facility] Primary Care- Floor 2, [address] [place] [address] 07/12/2024 08:20:01 07/13/2024 07:24:42 Postural orthostatic tachycardia syndrome 071909707 G90.A Continues to have issues with standing, [...] Continues to follow with cardiology . Anxiety 24267666 F41.9 Continues on buspirone. 03754910 Z33.1 Following / obstetrics /MFM with plan for upcoming induction due to her POTS. [id number] FLAVIA KIRBY ic Intervent ions at [address] [place]AN [address] 06/14/2024 10:38:56 06/14/2024 12:25:13 [id number] FLAVIA KIRBY Therapeut ic Intervent ions at [address] [place] [address] 09/05/2024 08:00:30 09/05/2024 10:08:29 [id number] FLAVIA KIRBY ic Intervent ions at [address] [place] [address] 10/04/2024 09:53:14 10/04/2024 11:21:35 [id number] FLAVIA KIRBY ic Intervent ions at [address] [place] [address] 11/09/2024 11:15:42 11/15/2024 08:27:33 [id number] FLAVIA KIRBY ic Intervent ions at [address] [place] [address] 12/13/2024 09:47:41 12/15/2024 15:09:13 [id number] FLAVIA KIRBY Therapeuheath ic Intervent ions at [address] [place]AN [address] 02/27/2025 10:47:05 03/06/2025 11:58:21 [id number] FLAVIA KIRBY Therapeuheath ic Intervent ions at [address] [place] DURAN [address] 1 03/31/2025 11:18:25 04/04/2025 11:25:52 Health Concerns Section Related Observation LastModified by Organization Detai ls LastModified Time None Recorded Concern Status LastModified by Organization Details LastModified Time None Recorded Advance Directives Directive N: Payers Insurance Date Sequence Insurance Name Policy Number Policy Zaidi Covered Member ID Zaidi Member ID Guarantor Name 03/31/2025 1 [place] [facility] CHO[facility] - FFS/TRADITIONA L Francy Miller [employer] [id number] Francy [employer] 03/23/2024 1 [place] [id number] Francy Miller Judaism [id number] Francy [facility] 02/13/2024 [employer] [place] [employer] [employer] Unknown Francy Miller [employer] 03/31/2025 1 [employer] [place] (MEDICAID HMO) Francy Miller Judaism [id number] Francy [employer] 04/17/2023 2 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 - [place] - [place] & [place] 09/22/2023 18:47:04 4 text/htm l Francy Judaism is a 23 yo female with depression, IBS-D, Gilbert's syndrome, chronic low back pain with sciatica, cholecystitis s/p recent cholecystectomy who presents for ER follow-ups. I personally reviewed [facility] ER notes from 12/04/23 and 12/10/23 #PalpitationsPatient seen the above dates for [facility] at [facility] seen at [facility] in between these two ER visitsHRs up to 130s at first ER visit with otherwise normal vitalsShe was given 1L fluid bolus and phenergan at first ER visitAt the [facility] visit in between had unremarkable cardiac echo and negative CTA chestAt 2nd [facility] ER visit HRs up to 120s with otherwise normal vitalsWas given 1L fluid bolus, po metoprolol, and iv zofranReferral was made to Cardiology Dr. Virgen and outpatient cardiac monitoringLabs from 12/04/23 notable for CMP with slightly low K of 3.2, negative troponin, BHCG of 1193, negative UDS, unremarkable CBC, bland UALabs from 12/10/23 notable [place] [address], negative troponin, CMP with slightly elevated tbili [...] inSays she will be able to see postal carrier in [facility] sooner than she can get into cardiology here Molly Bolton MD [address] [place] [address], [address], [address], [facility] - [place] & [place] 12/14/2023 21:40:31 4 text/htm pj Delarosa is a 23 yo female with anxiety and depression, IBS-D, Gilbert's syndrome, chronic low back pain with sciatica, who present for hospital and ER follow-ups. She is accompanied to clinic by her husbandPatient [facility] and also went to ER 01/31/24 for elevated heart rate and n/v.Labs overall unremarkable (negative troponin, CMP without significant abnormalities, normal CBC 01/24/24 at [facility] and unremarkable CMP, CBC, lactic acid, lipase, and UA 01/31/24 at )Had has 2 OB US at 01/23/24 12 weeks gestation and had bedside US on 01/31/24 showing IUP with FHR of 152Was discharged on zofran, buspirone, hydroxyzine and metoprolol from [facility], felt to be having sinus tachycardia, possible POTs, and panic attacksFelt to have sinus tachycardia and dehydration at ER and given LR and zofran and prescribed pepcid at dischargeUK note mentioned patient currently wearing Holter monitor and hadShe says she continues to have some palpitations and dizziness with standingSays she is bed bound and wheelchair bound (she says that her postal carrier made these specifications)Currently off workHaving a lot of nausea as well as diarrheaShe is getting banana bag infusions three times per week (ordered by her OB in [place]) and has been referred to highway maintainer at [facility] wearing Holter monitorReports HRs up to 170s-180s and sometimes looking like SVT on monitorsOn 25 mg metoprolol dailyShe is following with Dr. [facility] in [place] and has follow-up with them todaySays Holter [...] to fill out Molly Bolton MD [address], [address], [place], [address], 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
--- OUTSIDE RECORDS SUMMARY | 2025-05-15 07:37 | XMS_ITS | Encounter Summary ---
Author Organization [employer] ([place], [place], [place], [place]) Address [address] [place] [address] Care Team Providers Care Early Childhood Name Role Phone Molly Louis MD Primary Care Provider [phone] Padmini Wyatt APRN Primary Care Provider [phone] Encounter Details Date Type Department Care Team (Late st Contact Info) Description 08/22/2024 Outside Orders [facility] Admitting [address] [place] [address] Silverio Tam, PA [address] [facility] [address] 2nd Floor Wing [place] [id number] Esophageal reflux (Primary Dx) Social History Tobacco [...] Date Guerrero rded Speak language other than Malay at home Not on file 08/13/2023 Want [...] EIA Negative Negative 08/23/2024 10:57 PM EST Axeda Comment: Performed By: [facility] [address] [place] [address] Residential Lawn Specialist: Wilber Pardo MD, PhD CLIA Number: [id number] Stool 08/22/2024 11:3 5 AM EST 08/22/2024 11:36 AM EST Silverio [facility] - GENERAL ORDERAB LES Final Result [facility] [address] [phone] * Calprotectin, Fecal by Immunoassay(SENDOUT) (08/22/2024 11:35 AM EST) Calprotectin, Fecal 26 <=49 ug/g 08/26/2024 8:14 AM EST [facility] Comment: REFERENCE INTERVAL: Calprotectin, Fecal by Immunoassay Less than 50 ug/g........Normal 50-120 ug/g..............Borderline elevated, test should be re-evaluated in 4-6 weeks. 121 ug/g or greater......Elevated Performed By: [facility] [address] [place] [address] Residential Lawn Specialist: Wilber Pardo MD, PhD CLIA Number: [id number] Stool 08/22/2024 11:3 5 AM EST 08/22/2024 11:36 AM EST [facility] - GENERAL ORDERAB LES Final Result [facility] [address] [place] [address], [facility] [phone] documented in this encounter Visit Diagnoses Diagnosis Esophageal reflux- Primary documented in this encounter Care Teams Early Childhood Relationship Specialty Start Date End Date Molly Louis MD [address] [place] [address] [address] [place] [address] PCP - General 08/22/24 04/11/25 Padmini Wyatt, TRISTAN [address] [address] PCP - General Nurse Practitioner 04/12/25 documented as of this encounter
--- OUTSIDE RECORDS SUMMARY | 2025-05-15 07:38 | XMS_ITS | Encounter Summary ---
Author Organization Healthcare Address [address] [place] [address] Care Team Providers Care Cover Marker Name Role Phone Angela Oleary RN Unavailable Unavailable Rey Wyatt MD Primary Care Provider [phone] Encounter Details Date Type Department Care Team [...] Health Questionnaire-2 Score 0 12/15/2024 [facility] of Occupat [...] in a custodial (including now)? No 02/09/2024 [place] Depression Scale Answer Date Recorded [place] Depression Scale Total 6 08/08/2024 The thought [...] drink first t casi in the morning (EYE-SEMIAUTOMATIC STITCHER OPERATOR) to steady your nerves or to [...] Description 06/09/2025 7:30 AM EST Office Visit [facility] [address], [address] [place] [address] Silverio Tam PA [address] [place] [address] 06/15/2025 12:30 PM EST Office Visit [place] [facility] [address], [address] [place] [address] Kendy Sanchez, WEBMETHODS ARCHITECT [address] [place] [address] 06/19/2025 8:00 AM EST Office Visit [facility] [place] [address], [address] [place] [address] Courtney Torres MD [address] [place] [address] 06/19/2025 12:30 PM EST Appointment [facility] [address] [place] [address] 06/21/2025 12:30 PM EST Appointment [facility] [address] [place] [address] documented as of this encounter Goals Goal [...] documented as of this encounter Care Teams Cover Marker Relationship Specialty Start Date End Date Rey Wyatt MD [address] [place], [place] [id number] PCP - General 11/16/24 Angela Oleary, RN [facility] Registered Nurse Cardiology 02/17/24 documented as of this encounter
--- OUTSIDE RECORDS SUMMARY | 2025-05-15 07:38 | XMS_ITS | Clinical Summary ---
Author Organization [facility] Address [address] [place] [address] Care Team Providers Care Leadership Intern Name Role Phone Provider, No Known Primary Care Provider Unavail able Allergies Active Allergy Reactions Criticality Noted Date Comments Amoxicillin-Pot Clavulanate Swelling High 01/11/20 25 Swelling and rash Penicillin G Swelling High [...] HEPATITIS C SCREENING Completed 02/07/2024 Insurance MEDICAID [place] Care Teams Leadership Intern Relationship Specialty Start Date End Date Provider, [place] [address] PCP - General 02/08/24
--- OUTSIDE RECORDS SUMMARY | 2025-05-15 07:38 | XMS_ITS ---
Author Organization [facility] Address [address] [place] [address] Care Team Providers Care Leasing Director Name Role Phone Angela Oleary RN Unavailable Unavailable Rey Wyatt MD Primary Care Provider [phone] Community Health Worker Status:Active (Active) Start date:08/01/2024 Enrollment date:08/01/2024 Overview This episode type is for outpatient Community Health Workers enrolling patients in their program. Continued Care and Services Coordination
--- OUTSIDE RECORDS SUMMARY | 2025-05-15 07:38 | XMS_ITS | Encounter Summary ---
Author Organization Healthcare Address [address] [place] [address] Care Team Providers Care Processing Lead Name Role Phone Angela Oleary RN Unavailable Unavailable Rey Wyatt MD Primary Care Provider [phone] Encounter Details Date Type Department Care Team [...] often do you attend chur ch or zoroastrian services? Never 02/22/2024 Do you [...] Questionnaire-2 Score 0 12/15/2024 [facility] of Occupat ional Health - [...] in a chcf (including now)? No 02/09/2024 [place] Depression Scale Answer Date Recorded [place] Depression Scale Total 6 08/08/2024 The thought [...] drink first t casi in the morning (EYE-LOCKSTITCH SHOULDER JOINER) to steady your nerves or to get [...] Description 06/09/2025 7:30 AM EST Office Visit [facility] [address] [place] [address] Silverio Tam PA [address] [place] [address] 06/15/2025 12:30 PM EST Office Visit [place] [facility] [address] [place] [address] Kendy Sanchez, BLOCKER POLISHING [address] [place] [address] 06/19/2025 8:00 AM EST [facility] Visit [facility] [place] [address], [address] [place] [address] Courtney Torres MD [address] [place] [address] 06/19/2025 12:30 PM EST Appointment [facility] [address] [place] [address] 06/21/2025 12:30 PM EST Appointment [facility] [address] [place] [address] documented as of this encounter Goals Goal [...] documented as of this encounter Care Teams Processing Lead Relationship Specialty Start Date End Date Rey Wyatt MD [address] [place], [place] [id number] PCP - General 11/16/24 Angela Oleary, RN [facility] Registered Nurse Cardiology 02/17/24 documented as of this encounter
--- OUTSIDE RECORDS SUMMARY | 2025-05-15 07:38 | XMS_ITS | Encounter Summary ---
Author Organization Healthcare Address [address] [place] [address] Care Team Providers Care Rn Neurosurgical Name Role Phone Molly Louis MD Primary Care Provider [phone] Angela Oleary RN Unavailable Unavailable Rey Wyatt MD Primary Care Provider [phone] Reason for Visit * Reason Comments Community Resources Encounter Details Date Type Department Care Team ([facility] Contact Info) Description 08/01/2024 Patient Outreach Medical Office Building Obstetrics and Gynecology [address] [facility], [address] [place] [address] Sweta Rankin Community Resources Social [...] 0 12/15/2024 [facility] of Occupat ional Health - Occupational [...] in a residential (including now)? No 02/09/2024 [place] Depression Scale Answer Date Recorded [place] Depression Scale Total 6 08/08/2024 The thought [...] drink first t casi in the morning (EYE-PARTS WASHER) to steady your nerves or to get [...] Visit [facility] Specialties [address], [address] [place] [address] Silverio Tam PA [address] [place] [address] 06/15/2025 12:30 PM EST Office Visit [facility] [address], [address] [place] [address] Kendy Sanchez APRN [address] [place] [address] 06/19/2025 8:00 AM EST Office Visit [facility] [place] [address], [address] [place] [address] Courtney Torres MD [address] [place] [address] 06/19/2025 12:30 PM EST Appointment [facility] [address] [place] [address] 06/21/2025 12:30 PM EST Appointment [facility] [address] [place] [address] documented as of this encounter Goals Goal [...] as of this encounter Care Teams Rn Neurosurgical Relationship Specialty Start Date End Date Molly Louis MD [address] [place], [place] [id number] PCP - General Family Medicine 02/09/24 11/15/24 Rey Wyatt MD [address] [place] [address] PCP - General 11/16/24 Angela Oleary, RN [facility] Registered Nurse Cardiology 02/17/24 documented as of this encounter
--- OUTSIDE RECORDS SUMMARY | 2025-05-15 07:38 | XMS_ITS | Encounter Summary ---
Author Organization Healthcare Address [address] [place] [address] Care Team Providers Care Tank Cooper Name Role Phone Angela Oleary RN Unavailable Unavailable Rey Wyatt MD Primary Care Provider [phone] Encounter Details Date Type Department Care Team (Late st Contact Info) Description 04/20/2025 Results Follow-Up [facility] Medicine Specialties [address], [address] [place] [address] Cony Mcelroy MD [address] [place] [address] Social History Tobacco Use Types [...] How often do you attend chur or voodoo services? Never 02/22/2024 Do you [...] 12/15/2024 [facility] of Occupat ional [facility] - Occupational Stress Questionnaire Answer [...] a skilled nursing (including now)? No 02/09/2024 [place] Depression Scale Answer Date Recorded [place] Depression Scale Total 6 08/08/2024 The thought [...] drink first t casi in the morning (EYE-CLINICAL SPECIALIST MEDICAL DEVICE) to steady your nerves or to get [...] Visit [facility] [address], [address] [place] [address] Silverio Tam PA [address] [place] [address] 06/15/2025 12:30 PM EST Office Visit [facility] [address] [place] [address] Kendy Sanchez APRN [address] [place] [address] 06/19/2025 8:00 AM EST Office Visit [facility] [place] [address], [address] [place] [address] Courtney Torres MD [address] [place] [address] 06/19/2025 12:30 PM EST Appointment [facility] [address] [place] [address] 06/21/2025 12:30 PM EST Appointment [facility] [address] [place] [address] documented as of this encounter Goals Goal [...] documented as of this encounter Care Teams Tank Cooper Relationship Specialty Start Date End Date Rey Wyatt MD [address] [facility] [address] [place] [address] PCP - General 11/16/24 Angela Oleary, RN [facility] Registered Nurse Cardiology 02/17/24 documented as of this encounter
--- OUTSIDE RECORDS SUMMARY | 2025-05-15 07:38 | XMS_ITS | Encounter Summary ---
Author Organization Healthcare Address [address] [place] [address] Care Team Providers Care Social Work Therapist Name Role Phone Angela Oleary RN Unavailable Unavailable Rey Wyatt MD Primary Care Provider [phone] Encounter Details Date Type Department Care Team [...] in a retirement (including now)? No 02/09/2024 [place] Depression Scale Answer Date Recorded [place] Depression Scale Total 6 08/08/2024 The thought [...] drink first t casi in the morning (EYE-TERRITORY SALES MANAGER) to steady your nerves or to [...] Description 06/09/2025 7:30 AM EST Office Visit [facility] [address], [address] [place] [address] Silverio Tam PA [address] [place] [address] 06/15/2025 12:30 PM EST Office Visit [place] [facility] [address], [address] [place] [address] Kendy Sanchez, SENIOR TECHNICAL SPECIALIST [address] [place] [address] 06/19/2025 8:00 AM EST Office Visit [facility] [place] [address], [address] [place] [address] Courtney Torres MD [address] [place] [address] 06/19/2025 12:30 PM EST Appointment [facility] [address] [place] [address] 06/21/2025 12:30 PM EST Appointment [facility] [address] [place] [address] documented as of this encounter Goals Goal [...] as of this encounter Care Teams Social Work Therapist Relationship Specialty Start Date End Date Rey Wyatt MD [address] [place], [place] [address] PCP - General 11/16/24 Angela Oleary, RN [facility] Registered Nurse Cardiology 02/17/24 documented as of this encounter
--- OUTSIDE RECORDS SUMMARY | 2025-05-15 07:38 | XMS_ITS | Encounter Summary ---
Author Organization Healthcare Address [address] [place] [address] Care Team Providers Care Transport Assistant Name Role Phone Angela Oleary RN Unavailable Unavailable Rey Wyatt MD Primary Care Provider [phone] Encounter Details Date Type Department Care Team [...] in a half-way (including now)? No 02/09/2024 [place] Depression Scale Answer Date Recorded [place] Depression Scale Total 6 08/08/2024 The thought [...] drink first t casi in the morning (EYE-DISHING MACHINE OPERATOR) to steady your nerves or [...] Description 06/09/2025 7:30 AM EST Office Visit [place] [facility] [address], [address] [place] [address] Silverio Tam PA [address] [place] [address] 06/15/2025 12:30 PM EST Office Visit [place] [facility] [address], [address] [place] [address] Kendy Sanchez, LOAN INSPECTOR [address] [place] [address] 06/19/2025 8:00 AM EST Office Visit [facility] [address], [address] [place] [address] Courtney Torres MD [address] [place] [address] 06/19/2025 12:30 PM EST Appointment [facility] [address] [place] [address] 06/21/2025 12:30 PM EST Appointment [facility] [address] [place] [address] documented as of this encounter Goals Goal [...] documented as of this encounter Care Teams Transport Assistant Relationship Specialty Start Date End Date Rey Wyatt MD [address] [place], [place] [id number] PCP - General 11/16/24 Angela Oleary, RN [facility] Registered Nurse Cardiology 02/17/24 documented as of this encounter
[2025-05-15 07:55] LABS: Hematocrit 38.3 % (37.0-47.0); Hemoglobin 12.6 g/dL (12.2-16.2); Immature Granulocytes % 0.2 %; Mean Corpuscular HGB Conc 32.9 g/dL (31.8-35.4); Mean Corpuscular Hemoglobin 27.7 pg (27.0-31.2); Mean Corpuscular Volume 84.2 fl (81-99); Nucleated Red Blood Cells % 0 %; Platelet Count 156 K/mm3 (142-424); Red Blood Count 4.55 M/mm3 (4.20-5.40); Red Cell Distribution Width-SD 43.3 fL; White Blood Count 6.0 K/mm3 (4.8-10.8)
[2025-05-15 08:52] LABS: Albumin Level 4.0 g/dl (3.5-5.0); Chloride 104 mmol/L (98-107); Potassium 4.0 mmoL/L (3.5-5.1); Sodium 137 mmol/L (136-145)
[2025-05-15 08:54] LABS: Alanine Aminotransferase 15 U/L (12-78); Aspartate Amino Transferase 18 U/L (14-36); Blood Urea Nitrogen 8 mg/dl (7-17); Creatinine,Serum 0.70 mg/dl (0.52-1.04); Estimated Glomerular Filt Rate 100 ml/min (>60); GFR (African American) 121 ML/MIN (>60)
[2025-05-15 08:55] LABS: Albumin/Globulin Ratio 1.4 (1.1-1.8); Alkaline Phosphatase 60 U/L (38-126); Anion Gap 12.0 mEq/L (5-15); Bilirubin,Total 1.0 mg/dl (0.2-1.3); Calcium 8.7 mg/dl (8.4-10.2); Carbon Dioxide 25 mmol/L (22.0-30.0); Globulin 2.9 g/dL (1.3-3.2); Glucose 93 mg/dl (74-100); Iron 59 ug/dL (37-170); Total Protein,Serum 6.9 g/dl (6.3-8.2)
[2025-05-15 09:05] LABS: Total Iron Binding Capacity 355 ug/dL (265-497)
[2025-05-15 09:28] LABS: Ferritin 6.07 ng/ml (6.24-137)
== END 2025-05-15 23:59 | disposition home or self-care (01) ==
LOC: LAB 07:31
PROVIDERS: PCP Nurse Practitioner Family; Visit Provider Nurse Practitioner Family
DX: D64.9 Anemia, unspecified (principal); E87.8 Other disorders of electrolyte and fluid balance, not elsewhere classified; R79.89 Other specified abnormal findings of blood chemistry
CPT/HCPCS: 36415; 80053; 82024; 82088; 82533; 82627; 82728; 83540; 83550; 83605; 83735; 85025

== ENCOUNTER 2025-05-19 14:23 | Emergency (ER) | payer MEDICAID, SELFPAY ==
--- OUTSIDE RECORDS SUMMARY | 2025-04-04 16:00 | XMS_ITS | Encounter Summary ---
Author Organization [facility] Address [address] [place] [id number] Care Team Providers Care Trust Manager Name Role Phone Angela Oleary RN Unavailable Unavailable Rey Wyatt MD Primary Care Provider [phone] Reason for Referral * Consultation (Routine) - Authorized Specialty Diagnoses / Procedures Referred By Mili joe Referred To Contact Diagnoses Epigastric pain Diarrhea, unspecified type Albania Aguero MD [address] [address] Phone: tel: fax: Referral ID Status Reason Start Date Expiration Date V isits Requested Visits Authorized [id number] Authorized 04/07/2025 10/07/2026 1 1 * Imaging (Routine) - Closed Specialty Diagnoses / Procedures Referred By Mili joe Referred To Contact Gastroenterology Diagnoses Epigastric pain Diarrhea, unspecified type Gastroesophageal reflux disease, unspecified whether esophagitis present Procedures Colonoscopy Albania Aguero MD [address] [address] Phone: tel: fax: Referral ID Status Reason Start Date Expiration Date V isits Requested Visits Authorized [id number] Closed Specialty Services Required 04/07/2025 10/07/2026 1 1 * Imaging (Routine) - Closed Specialty Diagnoses / Procedures Referred By Mili joe Referred To Contact Gastroenterology Diagnoses Epigastric pain Diarrhea, unspecified type Gastroesophageal reflux disease, unspecified whether esophagitis present Procedures EGD Albania Aguero MD [address] [facility] [address] [place] [address] Phone: tel: fax: Referral ID Status Reason Start Date Expiration Date V isits Requested Visits Authorized [id number] Closed Specialty Services Required 04/07/2025 10/07/2026 1 1 Reason for Visit * Reason Comments Weight loss Encounter Details Date Type Department Care Team (Late st Contact Info) Description 04/04/2025 4:00 PM EDT Office Visit [facility] [address], [address] [place] [address] Donaldo Terry MD [address] [place] [address] Epigastric pain (Primary Dx); Diarrhea, [...] Recorded Patient Health Questionnaire-2 Score 0 12/15/2024 [facility] - Occupational Stress Questionnaire Answer Date [...] in a residential (including now)? No 02/09/2024 [place] Depression Scale Answer Date Recorded [place] Depression Scale Total 6 08/08/2024 The thought [...] first t casi in the morning (EYE-SALES ADVISORY MANAGER) to steady your nerves or to [...] Laci Terry MD GI Fellow, PGY-5 Pager: [phone] Cosigned by Albania Aguero MD at 04/11/2025 [...] Description 06/09/2025 7:30 AM EST Office Visit [facility] [address], [address] [place] [address] Silverio Tam PA [address] [place] [address] 06/15/2025 12:30 PM EST Office Visit [place] [facility] [address], [address] [place] [address] Kendy Sanchez, TRISTAN [address] [place] [address] 06/19/2025 8:00 AM EST Office Visit [facility] [place] [address], [address] [place] [address] Courtney Torres MD [address] [place] [address] 06/19/2025 12:30 PM EST Appointment [facility] [address] [place] [address] 06/21/2025 12:30 PM EST Appointment [facility] [address] [place] [address] Scheduled Referrals Name Type Priority Associated Diagnoses [...] Schwartz, Ingrid, MD Proceduralist Jean Padilla Endo Service Plumber Dana Brian Endo Nurse Pantera White MD [...] of bowel preparation was evaluated using the [place] Bowel Preparation Scale with scores of: right [...] medications. Staff Staff Role Sea Otero CRNA BOOKKEEPING CLERK Cony Mcelroy MD Proceduralist Jean Padilla Endo Service Plumber Dana Brian Endo Nurse Pantera White MD [...] forceps to rule out H. pylori. us Albania Aguero MD GI PROCEDURE ORDERABLES Susannah [...] documented as of this encounter Care Teams Trust Manager Relationship Specialty Start Date End Date Rey Wyatt MD [address] [place] [address] PCP - General 11/16/24 Anegla Oleary, RN [facility] Registered Nurse Cardiology 02/17/24 documented as of this encounter
--- OUTSIDE RECORDS SUMMARY | 2025-04-12 12:02 | XMS_ITS | Encounter Summary ---
Author Organization [employer] ([place], [place], [place], [place]) Address [address] [place] [address] Care Team Providers Care Bioinformatics Research Technician Name Role Phone EdmundoPadmini TRISTAN Primary Care Provider Reason for Referral * Cardiac Rehabilitation (Routine) - Closed Specialty Diagnoses / Procedures Referred By Contac t Referred To Contact Diagnoses Syncope Procedures Tilt table Provider, Not In System Leticia Nobles MD [address], [address] [address] Phone: tel: fax: Referral ID Status Reason Start Date Expiration Date Visits Re quested Visits Authorized [id number] Closed 09/19/2024 09/19/2025 1 1 Reason for Visit * Cardiac Rehabilitation (Routine) - Closed Specialty Diagnoses / Procedures Referred By Contac t Referred To Contact Diagnoses Syncope Procedures Tilt table Provider, Not In System Leticia Nobles MD [address], [facility] [address] [place] [address] Phone: tel: fax: Referral ID Status Reason Start Date Expiration Date Visits Re quested Visits Authorized [id number] Closed 09/19/2024 09/19/2025 1 1 Encounter Details Date Type Department Care Team (Latest Contact Info) Description 04/12/2025 12:02 PM EDT - 04/12/2025 11:59 PM EDT Hospital Encounter [facility] Procedure Lab [address] [place] [address] Syncope Discharge Disposition: Home or [...] Guerrero rded Speak language other than South Korean at home Not on file 08/13/2023 Want [...] TABLE TESTING INDICATION Tachycardia REFERRING PROVIDER Courtney Torrse MD PROCEDURE Standard tilt table testing. Nitroglycerin [...] collapse documented in this encounter Care Teams Bioinformatics Research Technician Relationship Specialty Start Date End Date Padmini Wyatt, CONTINUOUS PROCESS TANNER R[employer]ARY [employer]UM [address] [phone] PCP - General Nurse Practitioner 04/12/25 documented as of this encounter
--- OUTSIDE RECORDS SUMMARY | 2025-04-18 07:27 | XMS_ITS | Encounter Summary ---
Author Organization Healthcare Address [address] [id number] Care Team Providers Care Observatory Director Name Role Phone Angela Oleary RN Unavailable Unavailable Rey Wyatt MD Primary Care Provider [phone] Reason for Referral * Imaging (Routine) - Closed Specialty Diagnoses / Procedures Referred By Mili joe Referred To Contact Gastroenterology Diagnoses Epigastric pain Diarrhea, unspecified type Gastroesophageal reflux disease, unspecified whether esophagitis present Procedures Colonoscopy Albania Aguero MD [address] [address] Phone: tel: fax: Referral ID Status Reason Start Date Expiration Date V isits Requested Visits Authorized [id number] Closed Specialty Services Required 04/07/2025 10/07/2026 1 1 * Imaging (Routine) - Closed Specialty Diagnoses / Procedures Referred By Mili joe Referred To Contact Gastroenterology Diagnoses Epigastric pain Diarrhea, unspecified type Gastroesophageal reflux disease, unspecified whether esophagitis present Procedures EGD Albania Aguero MD [address] [facility] [address] [place] [phone] Phone: tel: fax: Referral ID Status Reason Start Date Expiration Date V isits Requested Visits Authorized [id number] Closed Specialty Services Required 04/07/2025 10/07/2026 1 1 Reason for Visit * Imaging (Routine) - Closed Specialty Diagnoses / Procedures Referred By Contac t Referred To Contact Gastroenterology Diagnoses Epigastric pain Diarrhea, unspecified type Gastroesophageal reflux disease, unspecified whether esophagitis present Procedures Colonoscopy Albania Aguero MD [address] [facility] [address] [place] [address] Phone: tel: fax: Referral ID Status Reason Start Date Expiration Date V isits Requested Visits Authorized [id number] Closed Specialty Services Required 04/07/2025 10/07/2026 1 1 Encounter Details Date Type Department Care Team (Late st Contact Info) Description 04/18/2025 7:27 AM EDT - 04/18/2025 11:59 PM EDT Hospital Encounter [facility] Endoscopy [address] [place] [address] Cony Mcelroy MD [address] [facility] [address] [place] [address] Pantera White MD [address] [place] [address] Sea Otero CRNA [address] [place] [address] Dana Brian GS - Endoscopy Epigastric pain; Diarrhea, unspecified type; Gastroesophageal reflux disease, unspecified whether esophagitis present Discharge Disposition: Home or Self Care Social [...] Recorded Patient Health Questionnaire-2 Score 0 12/15/2024 [employer] - Occupational Stress [...] in a longterm (including now)? 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) to steady your nerves or to get [...] Sign Reading Time Taken Comments Blood Pressure 117/55 04/18/2025 9:40 AM EDT Pulse 72 04/18/2025 9:40 AM EDT Temperature 36.6 C (97.9 F) 04/18/2025 9:15 AM EDT Respiratory Rate 12 04/18/2025 9:40 AM EDT Oxygen Saturation 100% 04/18/2025 9:40 AM EDT Inhaled Oxygen Concentration - - Weight 70.8 kg (156 lb 1.4 oz) 04/18/2025 7:54 A M EDT Height 167.6 cm (5' 6 ) 04/18/2025 7:54 AM EDT Body Mass Index 25.19 04/18/2025 7:54 AM EDT documented in this encounter Medications [...] inform pt to purchase OTC 4 tablet 04/07/2025 Blood Glucose Monitoring Suppl (OneTouch Verio Reflect) w/Device kit 04/14/2024 cholecalciferol (Vitamin [...] for mild pain. 30 tablet 1 07/18/2024 ketoconazole (NIZOral) 2 % shampoo USE SHAMPOO A BODY WASH, LATHER FOR 5 MINUTES THEN RINSE OFF. USE UNTIL RESOLVED. Lancets (Hokey PokeyTouch Delica Plus [id number]) [facility] 04/14/2024 levothyroxine (Synthroid, Levoxyl) 25 MCG tablet [...] test strip 1 each by Other route as needed. 04/14/2024 oral electrolytes (Thermotabs) tablet Take 1 tablet by mouth 2 times a day. 60 tablet 1 02/16/2025 polyethylene glycol (GoLYTELY) 236 g solution SEE PHARMACY NOTES FOR PATIENT LABEL INSTRUCTIONS- for Colonoscopy prep protocol 4000 mL 04/07/2025 potassium & sodium phosphates (Phos-NaK) 280-160-250 MG [...] every 6 hours as needed. sodium chloride ([place] Nasal [place]) 0.65 % nasal spray Administer 1 spray into each nostril if needed for congestion. 30 mL 12 04/12/2024 Ventolin HFA 108 (90 Base) MCG/ACT inhaler 10/05/2024 documented as of this encounter Miscellaneous Notes * H&P - Joselin Link MD - 04/18/2025 8:40 AM EDT Gastroenterology, Hepatology and Nutrition Pre-Endoscopy History & Physical Patient: Francy Delarosa Date of : 2000 Attending: No att. providers found Date of Visit: April 18, 2025 Chief Complaint/Reason for Visit: EGD & Colonoscopy SUBJECTIVE: History of Present Illness: Ms. Francy Delarosa is a 24 y.o. female here today for EGD & Colonoscopy. She has a past medicalhistory of Abnormal ECG, Anemia, Anxiety, Depression, Eczema, Food intolerance, GERD (gastroesophageal reflux disease), Gilbert syndrome (2019), Headache, tension-type, Hematochezia (05/19/23), Hypertension, Hyperthyroidism, Insomnia, Liver disease, Melena (05/19/23), Migraine, Numbness, Peptic ulce ration, POTS (postural orthostatic tachycardia syndrome) (01/2024), Severe malnutrition (CMS/HCC) (03/14/24), Syncope, and Urinary tract infection. She has no past medical history of Adverse effect of anesthesia or Malignant hyperthermia. Ms. Francy Delarosa is NPO. Her last solid food was 04/16. She reports no previous adverse reactions with anesthesia or sedation though recently diagnosed with POTS Anticoagulation and antiplatelet medications: none Last dose: not applicable She has never been diagnosed with a bleeding or clotting disorder. She denies previous surgery on her esophagus, stomach, small bowel or colon. She denies dysphagia. ROS: Gen: No headache, fever, chills. CV: No chest pain, shortness of breath. Resp: No shortness of breath. No cough. GI: +LUQ/epigastric abdominal pain, +intermittent hematochezia Allergies[1] Current Outpatient Medications Medication Instructions bisacodyl (Bisacodyl EC) 5 MG EC tablet Take all 4 tablets at 4 PM on day before colonoscopy IF INSURANCE DOES NOT COVER, please inform pt to purchase OTC Blood Glucose Monitoring Suppl (Moblyuch Verio Reflect) w/Device kit busPIRone (BUSPAR) 5 mg, Oral, Nightly, Takes at 8PM cholecalciferol (Vitamin D-3) 50 MCG (1999) capsule famotidine (PEPCID) 20 mg, Oral, 2 times daily fludrocortisone (FLORINEF) 0.1 mg, Oral, Daily fluticasone (Flonase) 50 MCG/ACT nasal spray 1 spray, Daily ibuprofen 600 mg, Oral, Every 6 hours PRN ketoconazole (NIZOral) 2 % shampoo USE SHAMPOO A BODY WASH, LATHER FOR 5 MINUTES THEN RINSE OFF.USE UNTIL RESOLVED. Lancets (Hokey PokeyTouch Delica Plus [id number]) misc levothyroxine (SYNTHROID, LEVOXYL) 25 mcg, Daily methIMAzole (TAPAZOLE) 10 mg, Oral, Daily ondansetron (ZOFRAN) 4 mg, Oral, Every 8 hours PRN ondansetron ODT (ZOFRAN-ODT) 8 mg, Oral, Every 8 hours PRN OneTouch Verio test strip 1 each, As needed oral electrolytes (Thermotabs) tablet 1 tablet, Oral, 2 times daily polyethylene glycol (GoLYTELY) 236 g solution SEE PHARMACY NOTES FOR PATIENT LABEL INSTRUCTIONS- for Colonoscopy prep protocol potassium & sodium phosphates (Phos-NaK) 280-160-250 MG packet 1 packet, Oral, Daily propranolol (INDERAL) 20 mg, Oral, 3 times daily senna-docusate (Codi-Colace) 8.6-50 MG tablet 1 tablet, Oral, Daily simethicone (MYLICON) 80 mg, Every 6 hours PRN sodium chloride (Daviess Nasal [place]) 0.65 % nasal spray 1 spray, Each Nostril, As needed Tylenol 650 mg, Oral, Every 6 hours PRN Ventolin HFA 108 (90 Base) MCG/ACT inhaler Past Medical History[2] Surgical History[3] Family History[4] Social History[5] OBJECTIVE: Physical Exam: General Appearance: Patient in no distress. Alert, awake and oriented x 3 Eyes: Anicteric, EOMI Neck: Neck supple Lungs: Lungs clear to auscultation, no wheezing, rales, rhonchi Heart: Regular rate and rhythm Abdomen: Abdomen soft, non-tender. Bowel sounds normal. No rebound or guarding. Laboratory/Imaging/Pathology: No results for input(s): HGB , PLT , APTT , INR , PTT , BILITOT , BILIDIR in the last 72 hours. ASSESSMENT & PLAN: Ms. Francy Delarosa is a 24 y.o. female here today for EGD & Colonoscopy. She has a past medicalhistory of Abnormal ECG, Anemia, Anxiety, Depression, Eczema, Food intolerance, GERD (gastroesophageal reflux disease), Gilbert syndrome (2019), Headache, tension-type, Hematochezia (05/19/23), Hypertension, Hyperthyroidism, Insomnia, Liver disease, Melena (05/19/23), Migraine, Numbness, Peptic ulceration, POTS (postural orthostatic tachycardia syndrome) (01/2024), Severe malnutrition (CMS/HCC) (03/14/24), Syncope, and Urinary tract infection. She has no past medical history of Adverse effect of anesthesia or Malignant hyperthermia. 1) EGD & Colonoscopy PLAN: - Continue NPO - PIV - Obtain consent - Proceed with plans for EGD & Colonoscopy - The risks, benefits, potential complications, limitations and alternatives to the procedure were discussed, including but not limited to pain, bloating, bleeding, infection, perforation, clinical deterioration, pancreatitis, aspiration, cardiopulmonary and cerebrovascular events, need for emergency surgery and even . The informed consent was signed by myself and the patient. Joselin Link MD [1] Allergies Allergen Reactions Amoxicillin-Pot Clavulanate Other - please document in the comment field, Rash and Swelling Cinnamon Other - please document in the comment field Penicillin G Swelling Betamethasone Dipropionate (Augmented) [Betamethasone] Other - please document in the comment field Patient states she has not had a reaction to this. Atarax [Hydroxyzine] Palpitations Benadryl [Diphenhydramine] Palpitations Penicillins Other - please document in the comment field [2] Past Medical History: Diagnosis Date Abnormal ECG Anemia Anxiety Depression Eczema Food intolerance GERD (gastroesophageal reflux disease) Gilbert syndrome 2019 Headache, tension-type Hematochezia 05/19/23 Hypertension Hyperthyroidism auto immune Insomnia Liver disease Melena 05/19/23 Migraine Numbness Peptic ulceration POTS (postural orthostatic tachycardia syndrome) 01/2024 Severe malnutrition (CMS/HCC) 03/14/24 ~16% wt loss x 4m; weight loss in setting of POTS, decreased oral intake, Syncope Urinary tract infection [3] Past Surgical [...] Cancer Maternal Grandmother Melania sheridan Asthma Child ADD / ADHD Child 0 - 9 Thyroid disease Mother's Sister Ashanti 20 - 29 Liver disease Brother Scott 20 - 29 Anesthesia problems Neg Hx Malig Hyperthermia Neg Hx [5] Social History Socioeconomic History Marital status: Spouse name: Scar Ramirez Number of children: 2 Tobacco Use Smoking status: Former Current packs/day: 0.00 Average packs/day: 0.3 packs/day for 10.0 years (2.5 ttl pk-yrs) Types: Cigarettes Start date: 2011 Quit date: 2021 Years since quittin.7 Passive exposure: Never Smokeless tobacco: Former Tobacco comments: History of [...] min Stress: No Stress Concern Present (02/22/2024) [employer] - Occupational Stress Questionnaire Feeling of Stress : Not at all Social Connections: Moderately Isolated (02/22/2024) Social Connection and Isolation Panel Frequency of Communication with Friends and Family: More than three times a week Frequency of Social Gatherings with Friends and Family: Once a week Attends Congregation Services: Never Active Member of Clubs or [...] in the Last Year: No Cosigned by Cony Mcelroy MD at 04/18/2025 8:26 AM EDT * Magalys Jimenez RN - 04/18/2025 7:41 AM EDT Images from the original note were not included. [id number] Endoscopy Unit: Caring for Yourself after an Esophogastroduodenoscopy (EGD) What precautions do I need to take after my procedure? You will get a medicine that makes you sleep during treatment. It may affect you for the next 24 hours. ? Do not drive or go home alone. Someone must be with you until you get home. ? For 24 hours, do not make legal decisions, drive, or use dangerous equipment. ? You may continue taking your home medicines, unless your doctor tells you otherwise. When can I eat or drink? You may eat your normal diet, unless otherwise told by your doctor. Start with a small amount of bland foods and add other foods as tolerated. Spicy or greasy foods may cause nausea. How active can I be? You should move around as you are able. Do your normal activities if you feel you can. Sexual activity is fine, unless your doctor tells you otherwise. How do I find out my biopsy results? If you had a biopsy, it may take 7-10 days for results. These will be available in the patient portal, Notizza. Or you can call the doctor who ordered your procedure. When should I call the doctor? Call 911 right away or go to the nearest emergency department if you have any of these: ? Difficulty breathing ? Severe pain in the throat ? Severe pain in the chest or belly ? Vomiting that does not go away ? Fever of 101??F or higher ? Redness or tenderness of the IV site that lasts longer than 48 hours ? Any other symptoms that concern you These may be related to a complication and need medical attention. If you do not tell your doctor, the problem may get worse. Our contact information: For the Endoscopy Provider, call and ask for the Endoscopy Fellow on-call. documented in this encounter Plan of Treatment Upcoming Encounters Date Type Department Care Team (Late st Contact Info) Description 06/09/2025 7:30 AM EST Office Visit [facility] Medicine Specialties [address] [place] [phone] Silverio Tam PA [address] [place] [phone] 06/15/2025 12:30 PM EST Office Visit [facility] [address] [place] [phone] Kendy Sanchez APRN [address] [place] [phone] 06/19/2025 8:00 AM EST Office Visit [facility] [address] [facility], [address] [place] [address] Courtney Torres MD [address] [place] [address] 06/19/2025 12:30 PM EST Appointment [facility] Neuro[facility]iology [address] [place] [address] 06/21/2025 12:30 PM EST Appointment [facility] [address] [place] [address] documented as of this encounter Goals Goal Patient Goal Type Associated Problems Recent Progress Patient-Stated? Author Delayed Delivery Care Plan CPM S22 PP LABOR (OBSTETRICS) No Open Scheduling, Background documented as of this encounter Procedures Procedure Name Priority Date/Time Associated Diagnosis Comments COLONOSCOPY Routine 04/18/2025 9:10 AM EDT Epigastric pain Hematochezia EGD Routine 04/18/2025 9:10 AM EDT Epigastric pain Gastroesophageal reflux disease, unspecified whether esophagitis present SURGICAL PATHOLOGY EXAM Routine 04/18/2025 8:49 AM EDT Epigastric pain Diarrhea, unspecified type Gastroesophageal reflux disease, unspecified whether esophagitis present POCT , URINE Routine 04/18/2025 7:53 AM EDT documented in this encounter Results * Colonoscopy (04/18/2025 9:10 [...] as tolerated - Recommend repeat colonoscopy at for screening purposes - Results discussed with patient and family - Follow up with referring provider Indication Order Indication: Hematochezia, Epigastric pain Medications See anesthesia record for anesthesia administered medications. Staff Staff Role Sea Otero CRNA CRNA Beyruth Schwartz, Ingrid, MD Proceduralist Jean Padilla Endo Dry Ice Machine Operator Dana Brian Endo Nurse Pantera White MD [...] of bowel preparation was evaluated using the [place] Bowel Preparation Scale with scores of: right [...] anesthesia administered medications. Staff Staff Role Sea Otero, DEDE TROUBLE TRACER Cony Mcelroy MD Proceduralist Jean Padilla Endo Dry Ice Machine Operator Dana Brian Endo Nurse Pantera White MD [...] GI PROCEDURE ORDERABLES Susannah oliva Result * Surgical Pathology Exam (04/18/2025 8:49 AM EDT) Case Report Surgical Pathology Case: [id number] Authorizing Provider: Cony Mcelroy, Collected: 04/18/2025 0849 Ordering Location: [facility] Endoscopy Received: 04/18/2025 0918 Pathologist: Chet Harris MD Specimen: Stomach, biopsy 04/19/2025 3:22 PM EDT [facility] Final Diagnosis STOMACH, BIOPSY: - REACTIVE GASTROPATHIC CHANGES WITH FOCAL INTESTINAL METAPLASIA (PREDOMINANTLY COMPLETE) - NO EVIDENCE OF DYSPLASIA - NO EVIDENCE OF HELICOBACTER-LIKE ORGANISMS ON ROUTINE STAIN 04/19/2025 3:22 PM EDT [facility] at 1522 EDT Clinical Information R10.13 - Epigastric pain [ICD-10-CM] R19.7 - Diarrhea, unspecified type [ICD-10-CM] K21.9 - Gastroesophageal reflux disease, unspecified whether esophagitis present [ICD-10-CM] EGD: Normal 04/19/2025 3:22 PM EDT [facility] Gross Description A. BIOPSY Received in formalin labeled b iopsy, stomach , are 5 pink-reyes soft tissue fragments that range from 0.3-0.6 cm in greatest dimension. Entirely submitted in cassette A1. Cold Time: <1m Haritha B Pettealfonso 04/19/2025 3:22 PM EDT [facility] Note: A resident was involved in the service. I attest I examined the relevant preparations for the specimens and confirmed the diagnosis or interpretation. 04/19/2025 3:22 PM EDT [facility] Tissue Stomach structure / Unknown 04/18/2025 8:49 AM EDT 04/18/2025 9:18 AM EDT us Cony Carter MD LAB PATHOLOGY ORDERAB LES Final Result Performing Organization Address City/[facility] Co de Phone Number [facility] [address] [place] [address] * POCT , URINE (04/18/2025 7:53 AM EDT) POCT Test, Urine Negative Males and Non-pregnan t Females: Negative 04/18/2025 7:59 AM EDT [facility] Mental Health Technician ID Melinda Allen 04/18/2025 7:59 AM EDT HEALTHCARE LAB Device ID [id number] 04/18/2025 7:59 AM EDT [facility] Urine Urine specimen obtained by clean catch procedure / Unknown 04/18/2025 7:53 AM EDT 04/18/2025 7:59 AM EDT us Cony Carter MD LAB POINT OF CARE TEST DOCKED DEVICE UNSOLICITED RESULTS Final Result Performing Organization Address City/[facility] Co de Phone Number [facility] [address] [place] [address] documented in this encounter Visit Diagnoses Diagnosis Epigastric pain Abdominal pain, epigastric Diarrhea, unspecified type Gastroesophageal reflux disease, unspecified whether esophagitis present documented in this encounter Administered Medications Inactive Administered Medications - up to 3 most recent administrations Medication Order MAR Action Action Date Dose Rate Site simethicone (Mylicon) 20 mg/0.3 mL drops As needed, Starting on Thu04/18/25 at 0855, Until Thu04/18/25 at 0855, Routine, Intraprocedure Given 04/18/2025 8:55 AM EDT 20 mg documented in this encounter Additional Health Concerns [...] documented as of this encounter Care Teams Observatory Director Relationship Specialty Start Date End Date Rey Wyatt MD [address] [place] [address] PCP - General 11/16/24 Angela Oleary, RN [facility] Registered Nurse Cardiology 02/17/24 documented as of this encounter
--- OUTSIDE RECORDS SUMMARY | 2025-04-18 08:38 | XMS_ITS | Encounter Summary ---
Author Organization Healthcare Address [address] [place] [address] Care Team Providers Care Finish Production Manager Name Role Phone Angela Oleary RN Unavailable Unavailable Rey Wyatt MD Primary Care Provider [phone] Encounter Details Date Type Department Care Team (Late st Contact Info) Description 04/18/2025 8:38 AM EDT Anesthesia Event [facility] [address] [place] [phone] Pantera White MD [address] [place] [phone] Anesthesia Record Procedure Summary Procedure Name Responsible [...] 075 by Magalys Sue RN 04/18/25943 by Jiame Dailey RN documented in this encounter Social [...] week 02/22/2024 How often do you attend [facility] or jehovah's witness services? Never 02/22/2024 Do [...] Recorded Patient Health Questionnaire-2 Score 0 12/15/2024 [facility] - Occupational Stress Questionnaire Answer [...] in a assisted (including now)? No 02/09/2024 [place] Depression Scale Answer Date Recorded [place] Depression Scale Total 6 08/08/2024 The thought [...] drink first t casi in the morning (EYE-STRAND BUNCHER FINE WIRE) to steady your nerves or to get [...] original note were not included. Anesthesiologist: Pantera White MD PRINCIPAL STATISTICAL SCIENTIST: Sea Otero CRNA Patient: Francy Delarosa is a 24 y.o. female with body mass index is 25.19 kg/m??. who presents with No Principal Problem: There is no principal problem currently on the Problem List. Please update the ProblemList and refresh., now for Procedure Information Date/Time: 04/18/25 0840 Scheduled providers: Cony Mcelroy MD; Pantera Wihte MD; Sea Otero CRNA; Dana Brian Procedures: EGD COLONOSCOPY Location: [facility] Endoscopy 24 yo F with a hx [...] to purchase OTC Blood Glucose Monitoring Suppl (BriggoTouch Verio Reflect) w/Device kit busPIRone (BUSPAR) 5 [...] MINUTES THEN RINSE OFF.USE UNTIL RESOLVED. Lancets ([employer] Delica Plus [id number]) misc levothyroxine (SYNTHROID, LEVOXYL) 25 mcg, Daily methIMAzole (TAPAZOLE) 10 mg, Oral, Daily ondansetron (ZOFRAN) 4 mg, Oral, Every 8 hours PRN ondansetron ODT (ZOFRAN-ODT) 8 mg, Oral, Every 8 hours PRN [employer] Verio test strip 1 each, As needed [...] mg, Every 6 hours PRN sodium chloride ([place] Nasal [place]) 0.65 % nasal spray 1 spray, Each [...] ABG No results found for: PHART , HVB1CEZ , PO2ART , SO2ART , BEART , PQB2GDE , HCTART , SODIUMART , POTASSIUMART , [...] PRE (L) Date/Time Value 03/01/2025 1119 3.42 [id number] (L) Date/Time Value 03/01/2025 1119 4.85 (A) [...] Plan ASA 2 Plan was reviewed with: PRINCIPAL STATISTICAL SCIENTIST Anesthesia technique(s) discussed with the patient/family: general [...] Description 06/09/2025 7:30 AM EST Office Visit [facility] Specialties [address] [place] [address] Silverio Tam PA [address] [place] [address] 06/15/2025 12:30 PM EST Office Visit [place] [facility] [address] [place] [address] CarlitaKendy winters, FINISHED CLOTH EXAMINER [address] [place] [address] 06/19/2025 8:00 AM EST Office Visit [facility] [place] [address], [address] [place] [address] Courtney Torres MD [address] [place] [address] 06/19/2025 12:30 PM EST Appointment [facility] [address] [place] [address] 06/21/2025 12:30 PM EST Appointment [facility] [address] [place] [address] documented as of this encounter [...] documented as of this encounter Care Teams Finish Production Manager Relationship Specialty Start Date End Date Rey Wyatt MD [address] [place] [address] PCP - General 11/16/24 Angela Oleary, RN [facility] Registered Nurse Cardiology 02/17/24 documented as of this encounter
[2025-05-19] VITALS (9 sets, daily range): BP systolic 102–134; BP diastolic 58–93; PULSE 77–95; RESP 15–18; TEMP 36.6–36.8; O2SAT 98–100; BMI 25.8
--- OUTSIDE RECORDS SUMMARY | 2025-05-19 14:39 | XMS_ITS | Clinical Summary ---
Author Organization [facility] Address [address] [place] [address] Care Team Providers Care Tableau Developer Name Role Phone Angela Oleary RN Unavailable Unavailable Rey Wyatt MD Primary Care Provider [phone] Allergies Active Allergy Reactions Criticality Noted Date [...] packet 1 03/16/20 24 Active sodium chloride ([place] Nasal Arch [place]) 0.65 % nasal spray Administer 1 spray into each nostril if needed for congestion. 30 mL 12 04/12/20 24 Active Blood Glucose Monitoring Suppl (OneTouch Verio Reflect) w/Device kit 04/14/20 24 Active OneTouch Verio test strip 1 each by Other route as needed. 04/14/20 24 Active Lancets (OneTouch Delica Plus [id number]) misc 04/14/20 24 Active ibuprofen 600 MG [...] day. 60 tablet 1 02/17/20 25 Active ketoconazole (NIZOral) 2 % shampoo USE SHAMPOO A BODY WASH, LATHER FOR 5 MINUTES THEN RINSE OFF. USE UNTIL RESOLVED. Active bisacodyl (Bisacodyl EC) 5 MG EC tablet Take all 4 tablets at 4 PM on day before colonoscopy IF INSURANCE DOES NOT COVER, please inform pt to purchase OTC 4 tablet 04/07/20 25 Active polyethylene glycol (GoLYTELY) 236 g solution SEE PHARMACY NOTES FOR PATIENT LABEL INSTRUCTIONS- for Colonoscopy prep protocol 4000 mL 04/07/20 25 Active midodrine (Proamatine) 5 MG tabletIndications: Postural Orthostatic Tachycardia Take 1 tablet by mouth 3 times a day. 3 times daily during daytime hours when patient is upright. Avoid administering <4 hours before bedtime to minimize risk of supine hypertension . 90 tablet 1 05/15/20 25 Active pyridostigmine (Mestinon) 30 MG tablet Take 1 tablet by mouth 2 times a day. 60 tablet 1 05/15/20 25 Active Hospital, Clinic, or Other Facility Administered Medication Ordered Dose Route Frequency Start Date End Date Status sodium chloride 0.9 % infusion 250 mLIndications:Supervision of high risk in second trimester 250 mL IV Once 03/30/2024 Active Active Problems Problem Noted Date Diagnosed Date Epigastric pain 04/07/2025 Palpitations 08/17/2024 and not yet delivered [facility] 07/16/2024 POTS (postural orthostatic tachycardia syndrome) [...] Date Resolved Date Severe malnutrition 03/14/2024 04/16/20 Overview (03/14/2024): ~16% wt loss x 4m; weight loss in setting of POTS, decreased oral intake, Gastroenteritis 03/11/2024 04/16/2025 Chest pain 02/05/2024 04/16/2025 Insomnia, unspecified 09/22/20232024 Diarrhea 05/19/2023 04/16/2025 Hematochezia 05/19/2023 04/16/2025 Melena 05/19/2023 04/16/2025 Encounters Date Type Department Care Team Description 04/20/2025 Results Follow-Up [facility] [address] [place] [address] Cony Mcelroy MD 04/18/2025 8:38 AM EDT Anesthesia Event [facility] [address] [place] [address] Pantera White MD 04/18/2025 7:27 AM EDT - 04/18/2025 11:59 PM EDT Hospital Encounter [facility] [address] [place] [address] Cony Mcelroy MD Hardin, Bryan D, MD Ancel, Brian C, CRNA Guagenti, Patricia L Epigastric pain; Diarrhea, unspecified type; Gastroesophageal reflux disease, unspecified whether esophagitis present Discharge Disposition: Home or Self Care 04/18/2025 Travel 04/17/2025 Travel 04/04/2025 4:00 PM EDT Office Visit [facility] [address] 2[address] [place] [address] Donaldo Terry MD Epigastric pain (Primary Dx); Diarrhea, unspecified type; Gastroesophageal reflux disease, unspecified whether esophagitis present 04/04/2025 Travel 04/03/2025 Travel 03/15/2025 3:30 PM EDT Consult [place] [facility] [address] [place] [address] Kendy Sanchez APRN Syncope, unspecified syncope type (Primary Dx) 03/15/2025 Travel 03/01/2025 10:13 AM EDT - 03/01/2025 11:59 PM EDT Hospital Encounter [facility] Pulmonary Function Testing [address] [place] [address] Dysautonomia-like disorder Discharge Disposition: Home or Self Care 03/01/2025 Travel 02/24/2025 Travel 02/16/2025 1:20 PM EDT Office Visit [facility] [address], [address] [place] [address] Courtney Torres MD Syncope and collapse (Primary Dx); Dysautonomia-like disorder 02/16/2025 Telephone [facility] [place] [address], [address] [place] [address] 02/16/2025 Travel from Last 3 Months Immunizations Immunization Administration Dates Next Due DTaP, Unspecified 04/26/2002 HPV, Quadrivalent 05/29/2011 Hep A, ped/adol, 2 dose 11/21/2010,02/20/2010 IPV 04/26/2002 Influenza, injectable, quadr ivalent, preservative free 04/29/2023 MMR 07/18/2024(Deferred: Patient Refused),04/26/2002 Tdap 02/20/2010 Varicella 07/06/2001 Family History Medical History Relation Name Comments Autoimmune disease Brother 1 Tristan craft Crohn's disease Brother 1 Tristan craft Immunodeficiency [...] Tobacco: Former Cigarettes 0.3 10 2 012 2021 Passive Smoke Exposure: Never Smokeless Tobacco: [...] you attend [employer] or scientologist services? Never 02/22/2024 Do you [...] Recorded Patient Health Questionnaire-2 Score 0 12/15/2024 [facility] - Occupational Stress Questionnaire Answer Date Recorded [...] in a detention (including now)? No 02/09/2024 [place] Depression Scale Answer Date Recorded [place] Depression Scale Total 6 08/08/2024 The thought [...] drink first t casi in the morning (EYE-POSITION CLERK) to steady your nerves or to [...] Description 06/09/2025 7:30 AM EST Office Visit [facility] [address], [address] [place] [address] Silverio Tam PA [address] [place] [address] 06/15/2025 12:30 PM EST Office Visit [place] [facility] [address], [address] [place] [address] Kendy Sanchez, WASTE MANAGEMENT ENGINEER [address] [place] [address] 06/19/2025 8:00 AM EST Office Visit [facility] [place] [address], [address] [place] [address] Courtney Torres MD [address] [place] [address] 06/19/2025 12:30 PM EST Appointment [facility] [address] [place] [address] 06/21/2025 12:30 PM EST Appointment [facility] [address] [place] [address] Health Maintenance Due Date Last Done Comments [...] - Td or Tdap) 02/21/2020 02/20/2010, 04/26/2002 [id number] Vaccine (2 - Jasmine risk series) 03/21/2021 [...] for anesthesia administered medications. Staff Staff Role Sae Otero CRNA CRNA Beyruth Schwartz, Ingrid, MD Proceduralist Jean Padilla Endo Commercial Real Estate Agent Dana Brian Endo Nurse Pantera White MD [...] of bowel preparation was evaluated using the [place] Bowel Preparation Scale with scores of: right [...] GI PROCEDURE ORDERABLES Susannah l Result * EGD (04/18/2025 9:10 AM EDT) [...] medications. Staff Staff Role Sea Otero, DEDE MEDICAL VOUCHER CLERK Cony Mcelroy MD Proceduralist Jean Padilla Endo Commercial Real Estate Agent Dana Brian Endo Nurse Pantera White MD [...] AM EDT) Case Report Surgical Pathology Case: [id number] Authorizing Provider: Coyn Mcelroy, Collected: 04/18/2025 0849 Ordering Location: [facility] Endoscopy Received: 04/18/2025 0918 Pathologist: Chet Harris MD Specimen: Stomach, biopsy 04/19/2025 3:22 PM EDT [facility] Final Diagnosis STOMACH, BIOPSY: - REACTIVE GASTROPATHIC CHANGES WITH FOCAL INTESTINAL METAPLASIA (PREDOMINANTLY COMPLETE) - NO EVIDENCE OF DYSPLASIA - NO EVIDENCE OF HELICOBACTER-LIKE ORGANISMS ON ROUTINE STAIN 04/19/2025 3:22 PM EDT [facility] at 1522 EDT Clinical Information R10.13 - Epigastric pain [ICD-10-CM] R19.7 - Diarrhea, unspecified type [ICD-10-CM] K21.9 - Gastroesophageal reflux disease, unspecified whether esophagitis present [ICD-10-CM] EGD: Normal 04/19/2025 3:22 PM EDT [facility] Gross Description A. BIOPSY Received in formalin labeled b iopsy, stomach , are 5 pink-reyes soft tissue fragments that range from 0.3-0.6 cm in greatest dimension. Entirely submitted in cassette A1. Cold Time: <1m Haritha Clive Gallegostealfonso 04/19/2025 3:22 PM EDT [facility] Note: A resident was involved in the service. I attest I examined the relevant preparations for the specimens and confirmed the diagnosis or interpretation. 04/19/2025 3:22 PM EDT [facility] Tissue Stomach structure / Unknown 04/18/2025 8:49 AM EDT 04/18/2025 9:18 AM EDT us Cony Carter MD LAB PATHOLOGY ORDERAB LES Final Result [facility] [address] [place] [address] * POCT , URINE (04/18/2025 7:53 AM EDT) POCT Test, Urine Negative Males and Non-pregnan t Females: Negative 04/18/2025 7:59 AM EDT [facility] Records Tech ID Irma Paredes Mackenziereji 04/18/2025 7:59 AM EDT HEALTHCARE LAB Device ID [id number] 04/18/2025 7:59 AM EDT [facility] Urine Urine specimen obtained by clean catch procedure / Unknown 04/18/2025 7:53 AM EDT 04/18/2025 7:59 AM EDT us Cony Carter MD LAB POINT OF CARE TEST DOCKED DEVICE UNSOLICITED RESULTS Final Result Performing Organization Address City/[facility]/ZIP Co de Phone Number [facility] [address] [place] [address] * CPET ECG (03/01/2025 11:19 AM EDT) Anatomical Region Laterality Modality PFT 03/01/2025 10:4 9 AM EDT Narrative 03/01/2025 11:43 AM EDT Images from the original result were not included. [facility] Cardiopulmonary Exercise Testing Laboratory The risks [...] sinus rhythm at 71 bpm. Heart Rate [place] unable to be determined Pulmonary Performance/Ventilatory Response: [...] at peak exercise was 87 L/min (Breathing [place] Ratio: 70%). VE/VCO2 slope unable to be obtained. Conclusion: Due to early termination of the test (after 1:30-2:00 minutes) unable to accurately interpret the findings. Can consider repeating in the future if the patient is able to exercise. Tay Barraza DO Fax Machine Repaireralley worker Cardiovascular Medicine Director of Sports Cardiology [facility] Courtney Torres MD PFT ORDERABLES Final Result * (ABNORMAL) Cardiopulmonary Exercise Test (03/01/2025 11:19 AM EDT) [id number] 4.85(A) 3.04 - 4.60 L VYAIRE PFT FEV1 PRE 3.42 2.62 - 3.88 L VYAIRE PFT FEV1/FVC PRE 70.53(A) 74.27 - 94.96 % VYAIRE PFT CNH44-35% PRE 2.34(A) 2.43 - 5.18 L/s VYAIRE PFT PEF PRE 8.68(A) 5.24 - 8.66 L/s VYAIRE PFT QDR9CVS 126.25(A) 114.18 - 114.18 L/min VYAIRE PFT Anatomical Region Laterality Modality PFT 03/01/2025 10:2 6 AM EDT Narrative 03/01/2025 11:43 AM EDT Images from the original result were not included. [facility] Cardiopulmonary Exercise Testing Laboratory The risks [...] sinus rhythm at 71 bpm. Heart Rate [place] unable to be determined Pulmonary Performance/Ventilatory Response: [...] at peak exercise was 87 L/min (Breathing [place] Ratio: 70%). VE/VCO2 slope unable to be obtained. Conclusion: Due to early termination of the test (after 1:30-2:00 minutes) unable to accurately interpret the findings. Can consider repeating in the future if the patient is able to exercise. Tay Barraza DO Fax Machine Repaireralley worker Cardiovascular Medicine Director of Sports Cardiology [facility] Courtney Torres MD PFT ORDERABLES Final Result * Catecholamines, fractionated, plasma (02/16/2025 2:17 PM EDT) CATECHOLAMINES, INTERP See Note 02/27/2025 12:36 AM EDT [facility] ([facility]) DOPAMINE <130 <=240 pmol/L 02/27/2025 12:36 AM EDT [facility] ([facility]) EPINEPHRINE 167 <=330 pmol/L 02/27/2025 12:36 AM EDT [facility] ([facility]) NOREPINEPHRINE 1597 1050 - 4800 pmol/L 02/27/2025 12:36 AM EDT [facility] ([facility]) Blood Venous blood specimen / Unknown Venipuncture / Unknown 02/16/2025 2:17 PM EDT 02/16/2025 2:17 PM EDT Narrative [facility] ([facility]) - 02/27/2025 12:36 AM EDT INTERPRETIVE INFORMATION:Epinephrine [...] reference intervals for this test in the [facility] Test Directory ([employer]). This test was developed and its performance characteristics determined by [facility]. It has not been cleared or approved by the [place] Food and Drug Administration. This test was performed in a CLIA certified laboratory and is intended for clinical purposes. Performed By: [facility] [address] [place] [id number] Toll Testboard Worker: Wilber Pardo MD, PhD CLIA Number: [id number] Courtney Torres MD LAB BLOOD ORDERABLES Final Re sult [facility] ([place]) [address] [place] [address] * Tryptase (02/16/2025 2:17 PM EDT) Pathologist [facility] TRYPTASE 4.3 <=10.9 ug/L 02/19/2025 2:04 PM EDT [facility] Serum Venous blood specimen / Unknown 02/16/2025 2:17 PM EDT 02/16/2025 2:17 PM EDT Narrative [facility] ([place]) - 02/19/2025 2:04 PM EDT Performed By: [facility] [address] [place] [address] Toll Testboard Worker: Wilber Pardo MD, PhD CLIA Number: [id number] Courtney Torres MD LAB BLOOD ORDERABLES Final Re sult Performing Organization Address [facility]/ZIP Co de Phone Number [facility] [address] [place] [address] * (ABNORMAL) Ferritin, Serum (02/16/2025 2:17 PM EDT) Pathologist [facility] Ferritin, Serum 6(L) 13 - 150 ng/mL 02/16/2025 6:17 PM EDT [facility] Blood Venous blood specimen / Unknown Venipuncture / Unknown 02/16/2025 2:17 PM EDT 02/16/2025 2:17 PM EDT Courtney Torres MD LAB BLOOD ORDERABLES Final Re sult [facility] [address] [place] [address] * Cortisol (02/16/2025 2:17 PM EDT) Pathologist [facility] Cortisol 2.80 Before 10am: 3.7 - 19.4. After 5pm: 2.9 - 17.3 ug/dL 02/16/2025 6:36 PM EDT [facility] Comment:Testing performed on Verma Top Case Assembler, standardized against PRISON Reference Standard concentration values assigned by LC-MS/MS and verified by BCR 192 and BCR 193 certified reference materials. Blood Venous blood specimen / Unknown Venipuncture / Unknown 02/16/2025 2:17 PM EDT 02/16/2025 2:17 PM EDT us Courtney Torres MD LAB REF LAB BLOOD AND FLUID O RD Final Result Performing Organization Address City/[facility]/ZIP Co de Phone Number [facility] [address] [place] [address] * HIV 1 & 2 Antibody/Antigen Screen (04/18/2024 10:13 AM EDT) [facility] HIV 1 & 2 Antibody/Antigen Screen Non Reactive Non Reactive 04/18/2024 12:07 PM EDT [facility] Comment:Screening for HIV 1 & 2 antibodies, and P24 antigen is NONREACTIVE. No confirmatory testing is required. Blood Venous blood specimen / Unknown Venipuncture / Unknown 04/18/2024 10:13 AM EDT 04/18/2024 10:13 AM EDT us Shalonda Davies APRN LAB BLOOD ORDERABLES Susannah l Result Performing Organization Address City/[facility] Co de Phone Number [facility] [address] [place] [address] * Hepatitis C Antibody - ED (02/07/2024 10:11 PM EDT) Pathologist [facility] Hepatitis C Antibody Negative Negative 02/07/2024 11:11 PM EDT [facility] Blood Venous blood specimen / Unknown Venipuncture / Unknown 02/07/2024 10:11 PM EDT 02/07/2024 10:18 PM EDT us Mark Roger MD LAB BLOOD ORDERABLES Final Resu lt Performing Organization Address City/[facility]/ZIP Co de Phone Number [facility] [address] [place] [phone] from Last 3 Months or Most Recently [...] Patient has decision-making capacity? Yes Care Teams Tableau Developer Relationship Specialty Start Date End Date Rey Wyatt MD [address] [place] [address] [address] [place] [address] PCP - General 11/16/24 Angela Oleary, RN [facility] Registered Nurse Cardiology 02/17/24
--- OUTSIDE RECORDS SUMMARY | 2025-05-19 14:39 | XMS_ITS | Encounter Summary ---
Author Organization Healthcare Address [address] [place] [phone] Care Team Providers Care Parts Counter Representative Name Role Phone Angela Oleary RN Unavailable Unavailable Rey Wyatt MD Primary Care Provider [phone] Encounter Details Date Type Department Care Team (Late st Contact Info) Description 01/18/2025 Results Follow-Up [facility] Endocrinology [address] [place] [address] Mun[facility]ohitha [address] [place] [id number] Social History Tobacco Use Types Packs/Day Years [...] often do you attend chur ch or jehovah's witness services? Never 02/22/2024 Do [...] [facility] - Occupational Stress Questionnaire Answer Date Recorded [...] in a fci (including now)? No 02/09/2024 [place] Depression Scale Answer Date Recorded [place] Depression Scale Total 6 08/08/2024 The thought [...] drink first t casi in the morning (EYE-WRAPAROUND FACILITATOR) to steady your nerves or to get [...] Description 06/09/2025 7:30 AM EST Office Visit [facility] Medicine Specialties [address] [place] [address] Silverio Tam PA [address] [place] [address] 06/15/2025 12:30 PM EST Office Visit [facility] [address] [place] [address] Kendy Sanchez APRN [address] [place] [address] 06/19/2025 8:00 AM EST Office Visit [facility] [place] [address], [address] [place] [address] Courtney Torres MD [address] [place] [address] 06/19/2025 12:30 PM EST Appointment [facility] [address] [place] [address] 06/21/2025 12:30 PM EST Appointment [facility] [address] [place] [address] Scheduled Orders Name Type Priority Associated Diagnoses [...] as of this encounter Care Teams Parts Counter Representative Relationship Specialty Start Date End Date Rey Wyatt MD [address] [facility] [address] [place] [address] PCP - General 11/16/24 Angela Oleary, RN [facility] Registered Nurse Cardiology 02/17/24 documented as of this encounter
--- OUTSIDE RECORDS SUMMARY | 2025-05-19 14:39 | XMS_ITS | Encounter Summary ---
Author Organization [employer] ([place], [place], [place], [place]) Address [address] [place] [address] Care Team Providers Care Volunteer Services Specialist Name Role Phone Padmini Wyatt APRN [...] Date Guerrero rded Speak language other than Venezuelan at home Not on file 08/13/2023 Want [...] on filedocumented in this encounter Care Teams Volunteer Services Specialist Relationship Specialty Start Date End Date Padmini Wyatt APRN [address] [place] [address] PCP - General Nurse Practitioner 04/12/25 documented as of this encounter
--- OUTSIDE RECORDS SUMMARY | 2025-05-19 14:39 | XMS_ITS | Encounter Summary ---
Author Organization Healthcare Address [address] [place] [address] Care Team Providers Care Cone Trucker Name Role Phone Angela Oleary RN Unavailable Unavailable Rey Wyatt MD Primary Care Provider [phone] Encounter Details Date Type Department Care Team ([facility] [facility] st Contact Info) Description 02/16/2025 Telephone [facility] [place] [address] [address] [place] [address] Social History Tobacco Use Types [...] Recorded Patient Health Questionnaire-2 Score 0 12/15/2024 [facility] - Occupational [...] in a halfway (including now)? No 02/09/2024 [place] Depression Scale Answer Date Recorded [place] Depression Scale Total 6 08/08/2024 The thought [...] drink first t casi in the morning (EYE-BILL HIKER) to steady your nerves or to get [...] any apts in Apr. Best contact number: [phone] (home) Optimal time of day to reach [...] Description 06/09/2025 7:30 AM EST Office Visit [facility] Medicine Specialties [address], [address] [place] [address] Silverio Tam PA [address] [place] [address] 06/15/2025 12:30 PM EST Office Visit [facility] [address] [place] [address] Kendy Sanchez APRN [address] [place] [address] 06/19/2025 8:00 AM EST Office Visit [facility] [place] [address], [address] [place] [address] Courtney Torres MD [address] [place] [address] 06/19/2025 12:30 PM EST Appointment [facility] [address] [place] [address] 06/21/2025 12:30 PM EST Appointment [facility] [address] [place] [address] documented as of this encounter Goals Goal [...] documented as of this encounter Care Teams Cone Trucker Relationship Specialty Start Date End Date Rey yWatt MD [address] [facility] [address] [place] [address] PCP - General 11/16/24 Angela Oleary, RN [facility] Registered Nurse Cardiology 02/17/24 documented as of this encounter
--- OUTSIDE RECORDS SUMMARY | 2025-05-19 14:40 | XMS_ITS | Encounter Summary ---
Author Organization [facility] ([place], [place], [place], [place]) Address [address] [place] [address] Care Team Providers Care Hydrogen Plant Operator Name Role Phone Molly Louis MD Primary Care Provider [phone] Padmini Wyatt APRN Primary Care Provider [phone] Encounter Details Date Type Department Care Team (Late st Contact Info) Description 04/14/2024 Outside Orders [facility] Admitting [address] [place] [address] Silevrio Tam, PA [address] [facility] [address] 2nd Floor Wing [place] [id number] Blood in stool (Primary Dx) Social History [...] Date Guerrero rded Speak language other than Greek at home Not on file 08/13/2023 Want [...] 87(H) <=49 ug/g 04/19/2024 11:26 PM EDT [facility] Comment: REFERENCE INTERVAL: Calprotectin, Fecal by Immunoassay Less than 50 ug/g.........Normal 50-120 ug/g...............Borderline elevated, test should be re-evaluated in 4-6 weeks. 121 ug/g or greater.......Elevated Performed By: [facility] [address] [place] [address] Mental Health Professional: Wilber Pardo MD, PhD CLIA Number: [id number] Stool 04/14/2024 11:0 6 AM EDT 04/14/2024 11:47 AM EDT us [facility] - GENERAL ORDERAB LES Final Result Performing Organization Address [facility]/State/[facility] Co de Phone Number [facility] [address] [place] [address], [facility] [phone] documented in this encounter Visit Diagnoses Diagnosis Blood in stool- Primary documented in this encounter Care Teams Hydrogen Plant Operator Relationship Specialty Start Date End Date Molly Louis MD [address] [place] [address] PCP - General 08/22/24 04/11/25 Padmini Wyatt APRN [address] [address] PCP - General Nurse Practitioner 04/12/25 documented as of this encounter
--- OUTSIDE RECORDS SUMMARY | 2025-05-19 14:40 | XMS_ITS | Encounter Summary ---
Author Organization Healthcare Address [address] [place] [address] Care Team Providers Care Wall Taper Helper Name Role Phone Molly Louis MD Primary Care Provider [phone] Angela Oleary RN Unavailable Unavailable Rey Wyatt MD Primary Care Provider [phone] Reason for Visit * Reason Onset Date Comments Med Refill 03/03/2024 Encounter Details Date Type Department Care Team ([facility] Contact Info) Description 03/03/2024 Refill Medical Office Building Obstetrics and Gynecology [address], [address] [place] [address] DekalbEarle Villagomez MD [address] [place] [address] Supervision of high risk in [...] Recorded Patient Health Questionnaire-2 Score 0 02/17/2024 [facility] Occup[facility] ional Health [...] a nursing home (including now)? No 02/09/2024 [place] Depression Scale Answer Date Recorded [place] Depression Scale Total 8 02/22/2024 The thought [...] requesting to speak with a nurse- see [facility] for details about symptoms she is experiencing. * Telephone Encounter - Luh Keenan RN - 03/04/2024 1:56 PM EDT Patient has refills on file. Needs to call pharmacy. Luh Keenan, RN documented in this encounter Plan of Treatment Upcoming Encounters Date Type Department Care Team (Late st Contact Info) Description 06/09/2025 7:30 AM EST Office Visit [facility] Medicine Specialties [address], [address] [place] [address] Silverio Tam PA [address] [place] [address] 06/15/2025 12:30 PM EST Office Visit [facility] [address], [address] [place] [address] Kendy Sanchez APRN [address] [place] [address] 06/19/2025 8:00 AM EST Office Visit [facility] [place] [address], [address] [place] [address] Courtney Torres MD [address] [place] [address] 06/19/2025 12:30 PM EST Appointment [facility] [address] [place] [address] 06/21/2025 12:30 PM EST Appointment [facility] [address] [place] [address] documented as of this encounter Goals Goal [...] documented as of this encounter Care Teams Wall Taper Helper Relationship Specialty Start Date End Date Molly Louis MD [address] [place] [address] PCP - General Family Medicine 02/09/24 11/15/24 Rey Wyatt MD [address] [place] [address] PCP - General 11/16/24 Angela Oleary, RN [facility] Registered Nurse Cardiology 02/17/24 documented as of this encounter
--- OUTSIDE RECORDS SUMMARY | 2025-05-19 14:40 | XMS_ITS | Encounter Summary ---
Author Organization Healthcare Address [address] [place] [id number] Care Team Providers Care Ticket Sales Agent Name Role Phone Molly Louis MD Primary Care Provider [phone] Angela Oleary RN Unavailable Unavailable Rey Wyatt MD Primary Care Provider [phone] Reason for Visit * Reason Onset Date Comments Med Refill 03/03/2024 Encounter Details Date Type Department Care Team (Late st Contact Info) Description 03/03/2024 Refill [facility] [address] [place] [address] Paris Marion MD [address] [place] [address] Social History Tobacco Use Types Packs/Day Years [...] 0 02/17/2024 [facility] - Occupational Stress Questionnaire Answer [...] in a usp (including now)? No 02/09/2024 [place] Depression Scale Answer Date Recorded [place] Depression Scale Total 8 02/22/2024 The thought [...] Description 06/09/2025 7:30 AM EST [facility] Medicine Specialties [address], [address]nd [place] [address] Silverio Tam PA [address] [place] [address] 06/15/2025 12:30 PM EST Office Visit [facility] [address], 1st [place] [address] Kendy Sanchez, TRISTAN [address] [place] [address] 06/19/2025 8:00 AM EST Office Visit [facility] [place] [address], [address] [place] [address] Courtney Torres MD [address] [place] [address] 06/19/2025 12:30 PM EST Appointment [facility] [address] [place] [address] 06/21/2025 12:30 PM EST Appointment [facility] [address] [place] [address] documented as of this encounter [...] documented as of this encounter Care Teams Ticket Sales Agent Relationship Specialty Start Date End Date Molly Louis MD [address] [place] [address] PCP - General Family Medicine 02/09/24 11/15/24 Rey Wyatt MD [address] [place] [address] PCP - General 11/16/24 Angela Oleary RN [facility] Registered Nurse Cardiology 02/17/24 documented as of this encounter
--- OUTSIDE RECORDS SUMMARY | 2025-05-19 14:40 | XMS_ITS | Encounter Summary ---
Author Organization [facility] ([place], [place], [place], [place]) Address [address] [place] [address] Care Team Providers Care Teacher Ballet Name Role Phone Molly Louis MD Primary Care Provider [phone] Padmini Wyatt APRN Primary Care Provider [phone] Encounter Details Date Type Department Care Team (Late st Contact Info) Description 08/22/2024 Outside Orders [facility] Admitting [address] [place] [address] Silverio Tam, PA [address] [facility] [address] 2nd Floor Wing [place] [id number] Esophageal reflux (Primary Dx) Social History Tobacco [...] Date Guerrero rded Speak language other than Luxembourgish at home Not on file 08/13/2023 Want [...] EIA Negative Negative 08/23/2024 10:57 PM EST [facility] Comment: Performed By: [facility] [address] [place] [address] Pacu Rn: Wilber Pardo MD, PhD CLIA Number: [id number] Stool 08/22/2024 11:3 5 AM EST 08/22/2024 11:36 AM EST [facility] - GENERAL ORDERAB LES Final Result [facility] [address] [phone] * Calprotectin, Fecal by Immunoassay(SENDOUT) (08/22/2024 11:35 AM EST) Calprotectin, Fecal 26 <=49 ug/g 08/26/2024 8:14 AM EST [facility] Comment: REFERENCE INTERVAL: Calprotectin, Fecal by Immunoassay Less than 50 ug/g........Normal 50-120 ug/g..............Borderline elevated, test should be re-evaluated in 4-6 weeks. 121 ug/g or greater......Elevated Performed By: [facility] [address] [place] [address] Pacu Rn: Wilber Pardo MD, PhD CLIA Number: [id number] Stool 08/22/2024 11:3 5 AM EST 08/22/2024 11:36 AM EST [facility] - GENERAL ORDERAB LES Final Result [facility] [address] [place] [address], [facility] [phone] documented in this encounter Visit Diagnoses Diagnosis Esophageal reflux- Primary documented in this encounter Care Teams Teacher Ballet Relationship Specialty Start Date End Date Molly Louis MD [address] [place] [address] [address] [place] [address] PCP - General 08/22/24 04/11/25 Padmini Wyatt, TRISTAN [address] [address] PCP - General Nurse Practitioner 04/12/25 documented as of this encounter
--- OUTSIDE RECORDS SUMMARY | 2025-05-19 14:40 | XMS_ITS | Referral Summary ---
Author Organization [facility] ([place], [place], [place], [place]) Address [address] [place] [address] Care Team Providers Care Shuttlecock Assembler Name Role Phone Padmini Wyatt APRN Primary Care Provider Encounters Date Type Department Care Team Description 04/12/2025 Travel 04/12/2025 12:02 PM EDT - 04/12/2025 11:59 PM EDT Hospital Encounter [facility] Procedure Lab [address] [place] [address] Syncope Discharge Disposition: Home or [...] Date Guerrero rded Speak language other than New Zealander at home Not on file 08/13/2023 Want [...] on file Medical Devices Implanted Type Area Cruise Director Device Identifier Shelf Expiration Date Model / Serial / Lot K-Wire [id number] - [id number] Implanted:Qty: 1 on 08/04/2022 by Rex Rene MD at [facility] IMPLANTS Right: Hand ANNIA:[employer] [id number] / / Wire K-Wire 1.6mm 0862 - [id number] Implanted:Qty: 1 on 08/04/2022 by Rex Rene MD at [facility] IMPLANTS Right: Hand BUCK MED GRP:BUCK [...] from Last 3 Months Insurance MEDICAID OF [place] Advance Directives For more information, please contact: [phone] * Full Code (Latest Code Status on File) Date Activated Date Inactivated Comments 08/04/2022 6:03 AM 08/04/2022 11:35 AM Care Teams Shuttlecock Assembler Relationship Specialty Start Date End Date Padmini Wyatt, [facility] [address] [address] PCP - General Nurse Practitioner 04/12/25
--- OUTSIDE RECORDS SUMMARY | 2025-05-19 14:40 | XMS_ITS | Clinical Summary ---
Author Organization [facility] ([place], [place], [place], [place]) Address [address] [place] [address] Care Team Providers Care Water Tester Name Role Phone Padmini Wyatt BANKING SPECIALIST Primary Care Provider [phone] Allergies Active Allergy Reactions Criticality Noted Date [...] - 04/12/2025 11:59 PM EDT Hospital Encounter [facility] Procedure Lab [address] [place] [address] Syncope Discharge Disposition: Home or Self Care [...] Date Guerrero rded Speak language other than Cuban at home Not on file 08/13/2023 Want [...] this topic Medical Devices Implanted Type Area Carton Machine Operator Device Identifier Shelf Expiration Date Model / Serial / Lot K-Wire [id number] - [id number] Implanted:Qty: 1 on 08/04/2022 by Rex Rene MD at [facility] IMPLANTS Right: Hand ANNIA:[employer] [id number] / / Wire K-Wire 1.6mm [id number] - [id number] Implanted:Qty: 1 on 08/04/2022 by Rex Rene MD at [facility] IMPLANTS Right: Hand [employer] MED GRP:[employer] TECH / / Procedures Procedure Name Priority [...] Final Result from Last 3 Months Insurance [id number] (Home) [address] [place] [id number] [place] Advance Directives For more information, please contact: [phone] * Full Code (Latest Code Status on File) Date Activated Date Inactivated Comments 08/04/2022 6:03 AM 08/04/2022 11:35 AM Care Teams Water Tester Relationship Specialty Start Date End Date Padmini Wyatt APRN [address] [address] PCP - General Nurse Practitioner 04/12/25
--- OUTSIDE RECORDS SUMMARY | 2025-05-19 14:40 | XMS_ITS | Encounter Summary ---
Author Organization Healthcare Address [address] [place] [address] Care Team Providers Care Pediatric Speech Language Pathologist Name Role Phone Molly Louis MD Primary Care Provider [phone] Angela Oleary RN Unavailable Unavailable Rey Wyatt MD Primary Care Provider [phone] Reason for Visit * Reason Onset Date Comments Med Refill 07/19/2024 Encounter Details Date Type Department Care Team (Late st Contact Info) Description 07/19/2024 Refill [facility] [address], [address] [place] [address] Paris Marion MD [address] [place] [address] Social History Tobacco Use Types Packs/Day Years [...] How often do you attend chur or church services? Never 02/22/2024 Do you [...] Recorded Patient Health Questionnaire-2 Score 0 06/22/2024 [facility]ational [facility] Questionnaire [...] a nursing home (including now)? No 02/09/2024 [place] Depression Scale Answer Date Recorded [place] Depression Scale Total 8 02/22/2024 The thought [...] drink first t casi in the morning (EYE-CARPET LOOM FIXER) to steady your nerves or to get [...] Description 06/09/2025 7:30 AM EST Office Visit [facility] Medicine Specialties [address], 2nd [place] [address] Silverio Tam PA [address] [place] [address] 06/15/2025 12:30 PM EST Office Visit [facility] [address], 1st [place] [address] Kendy Sanchez APRN [address] [place] [address] 06/19/2025 8:00 AM EST Office Visit [facility] [place] [address], [address] [place] [address] Courtney Torres MD [address] [place] [address] 06/19/2025 12:30 PM EST Appointment [facility] [address] [place] [address] 06/21/2025 12:30 PM EST Appointment [facility] [address] [place] [address] documented as of this encounter Goals Goal [...] documented as of this encounter Care Teams Pediatric Speech Language Pathologist Relationship Specialty Start Date End Date Molly Louis MD [address] [place], [place] [id number] PCP - General Family Medicine 02/09/24 11/15/24 Rey Wyatt MD [address] [place] [address] PCP - General 11/16/24 Angela Oleary, RN [facility] Registered Nurse Cardiology 02/17/24 documented as of this encounter
--- OUTSIDE RECORDS SUMMARY | 2025-05-19 14:40 | XMS_ITS | Encounter Summary ---
Author Organization Healthcare Address [address] [place] [address] Care Team Providers Care Coat Presser Name Role Phone Molly Louis MD Primary Care Provider [phone] Angela Oleary RN Unavailable Unavailable Rey Wyatt MD Primary Care Provider [phone] Reason for Visit * Reason Onset Date Comments Med Refill 03/23/2024 Encounter Details Date Type Department Care Team ([facility] Contact Info) Description 03/23/2024 Refill Medical Office Building Obstetrics and Gynecology [address], [address] [place] [address] Shalonda Davies, TRAFFIC MONITOR SPECIALIST [address] [place] [address] Social History Tobacco Use Types [...] in a residential (including now)? No 02/09/2024 [place] Depression Scale Answer Date Recorded [place] Depression Scale Total 8 02/22/2024 The [...] drink first t casi in the morning (EYE-BEET TOPPER) to steady your nerves or to get [...] Description 06/09/2025 7:30 AM EST Office Visit [facility] Medicine Specialties [address], 2nd [place] [address] Silverio Tam PA [address] [place] [address] 06/15/2025 12:30 PM EST Office Visit [facility] [address], 1st [place] [address] Kendy Sanchez, TRAFFIC MONITOR SPECIALIST [address] [place] [address] 06/19/2025 8:00 AM EST Office Visit [facility] [place] [address], [address] [place], [...] documented as of this encounter Care Teams Coat Presser Relationship Specialty Start Date End Date Molly Louis MD [address] [place] [address] PCP - General Family Medicine 02/09/24 11/15/24 Rey Wyatt MD [address] [place], [place] [id number] PCP - General 11/16/24 Angela Oleary, RN [facility] Registered Nurse Cardiology 02/17/24 documented as of this encounter
--- OUTSIDE RECORDS SUMMARY | 2025-05-19 14:40 | XMS_ITS | Clinical Summary ---
Author Organization [facility] Address [address] [place] [address] Care Team Providers Care Silk Top Hat Body Maker Name Role Phone Provider, No Known Primary [...] HEPATITIS C SCREENING Completed 02/07/2024 Insurance [place]ICAID [place] Care Teams Silk Top Hat Body Maker Relationship Specialty Start Date End Date Provider, [place] [address] PCP - General 02/08/24
--- OUTSIDE RECORDS SUMMARY | 2025-05-19 14:40 | XMS_ITS | Encounter Summary ---
Author Organization Healthcare Address [address] [place] [address] Care Team Providers Care Rotary Machine Operator Name Role Phone Angela Oleary RN Unavailable Unavailable Rey Wyatt MD Primary Care Provider [phone] Encounter Details Date Type Department Care Team (Late st Contact Info) Description 04/20/2025 Results Follow-Up [facility] Medicine Specialties [address], [address]nd [place] [address] Cony Mcelroy MD [address] [place] [address] Social History Tobacco Use Types [...] 12/15/2024 [facility] Occupat ional [facility] - Occupational Stress Questionnaire Answer [...] in a jail (including now)? No 02/09/2024 [place] Depression Scale Answer Date Recorded [place] Depression Scale Total 6 08/08/2024 The thought [...] drink first t casi in the morning (EYE-FAMILY SERVICES SPECIALIST) to steady your nerves or to [...] Description 06/09/2025 7:30 AM EST Office Visit [facility] Medicine Specialties [address], [address] [place] [address] Silverio Tam PA [address] [place] [address] 06/15/2025 12:30 PM EST Office Visit [facility] [address], 1st [place] [address] Kendy Sanchez APRN [address] [place] [address] 06/19/2025 8:00 AM EST Office Visit [facility] [place] [address], [address] [place] [address] Courtney Torres MD [address] [place] [address] 06/19/2025 12:30 PM EST Appointment [facility] [address] [place] [address] 06/21/2025 12:30 PM EST Appointment [facility] [address] [place] [address] documented as of this encounter Goals Goal [...] as of this encounter Care Teams Rotary Machine Operator Relationship Specialty Start Date End Date Rey Wyatt MD [address] [facility] [address] [place] [address] PCP - General 11/16/24 Angela Oleary, RN [facility] Registered Nurse Cardiology 02/17/24 documented as of this encounter
--- OUTSIDE RECORDS SUMMARY | 2025-05-19 14:40 | XMS_ITS | Encounter Summary ---
Author Organization Healthcare Address [address] [place] [address] Care Team Providers Care Assessment Nurse Practitioner Name Role Phone Pcp, No Primary Care Provider UnavailMolly Newman MD Primary Care Provider [phone] Angela Oleary RN Unavailable Unavailable Rey Wyatt MD Primary Care Provider [phone] Encounter Details Date Type Department Care Team (Late Contact Info) Description 01/22/2024 Orders Only External Location [address] [place] [address] Provider, External Social History Tobacco Use Types [...] Description 06/09/2025 7:30 AM EST Office Visit [facility] Medicine Specialties [address], 2nd [place] [address] Silverio Tam PA [address] [place] [address] 06/15/2025 12:30 PM EST Office Visit [facility] [address], [address] [place] [address] Laura Kendy, SHIRT SEWER [address] [place] [address] 06/19/2025 8:00 AM EST Office Visit [facility] [place] [address], [address] [place] [address] Courtney Torres MD [address] [place] [address] 06/19/2025 12:30 PM EST Appointment [facility] [address] [place] [address] 06/21/2025 12:30 PM EST Appointment [facility] [address] [place] [address] documented as of this encounter Procedures Procedure [...] documented as of this encounter Care Teams Assessment Nurse Practitioner Relationship Specialty Start Date End Date Pcp, No [address] [place] [address] PCP - General Family Medicine 01/22/24 02/08/24 Molly Louis MD [address] [place] [address] PCP - General Family Medicine 02/09/24 11/15/24 Rey Wyatt MD [address] [place] [address] [place], [place] [id number] PCP - General 11/16/24 Angela Oleary, RN [facility] Registered Nurse Cardiology 02/17/24 documented as of this encounter
--- OUTSIDE RECORDS SUMMARY | 2025-05-19 14:40 | XMS_ITS | Encounter Summary ---
Author Organization Healthcare Address [address] [place] [address] Care Team Providers Care Cottage Parent Name Role Phone Angela Oleary RN Unavailable Unavailable Rey Wyatt MD Primary Care Provider [phone] Encounter Details Date Type Department Care Team [...] in a [facility] (including now)? No 02/09/2024 [place] Depression Scale Answer Date Recorded [place] Depression Scale Total 6 08/08/2024 The thought [...] drink first t casi in the morning (EYE-TEST ARCHITECT) to steady your nerves or to [...] Description 06/09/2025 7:30 AM EST Office Visit [facility] Medicine Specialties [address], 2[address] [place] [address] Silverio Tam PA [address] [place] [address] 06/15/2025 12:30 PM EST Office Visit [facility] [address], 1[address] [place] [address] Kendy Sanchez, PRESIDENT SALES AND MARKETING [address] [place] [address] 06/19/2025 8:00 AM EST Office Visit [facility] [place] [address], [address] [place] [address] Courtney Torres MD [address] [place] [address] 06/19/2025 12:30 PM EST Appointment [facility] [address] [place] [address] 06/21/2025 12:30 PM EST Appointment [facility] [address] [place] [address] documented as of this encounter Goals Goal [...] documented as of this encounter Care Teams Cottage Parent Relationship Specialty Start Date End Date Rey Wyatt MD [address] [place], [place] [phone] PCP - General 11/16/24 Angela Oleary, RN [facility] Registered Nurse Cardiology 02/17/24 documented as of this encounter
--- OUTSIDE RECORDS SUMMARY | 2025-05-19 14:41 | XMS_ITS | Encounter Summary ---
Author Organization Healthcare Address [address] [place] [address] Care Team Providers Care Dog Daycare Provider Name Role Phone Angela Oleary RN Unavailable Unavailable Rey Wyatt MD Primary Care Provider [phone] Encounter Details Date Type Department Care Team [...] in a chcf (including now)? No 02/09/2024 [place] Depression Scale Answer Date Recorded [place] Depression Scale Total 6 08/08/2024 The thought [...] drink first t casi in the morning (EYE-REGISTRATION OFFICER) to steady your nerves or to [...] Description 06/09/2025 7:30 AM EST Office Visit [facility] [address], [address] [place] [address] Silverio Tam PA [address] [place] [address] 06/15/2025 12:30 PM EST Office Visit [place] [facility] [address], [address] [place] [address] Kendy Sanchez, COMMUNITY OUTREACH WORKER [address] [place] [address] 06/19/2025 8:00 AM EST Office Visit [facility] [place] [address], [address] [place] [address] Courtney Torres MD [address] [place] [address] 06/19/2025 12:30 PM EST Appointment [facility] [address] [place] [phone] 06/21/2025 12:30 PM EST Appointment [facility] [address] [place] [phone] documented as of this encounter Goals Goal [...] documented as of this encounter Care Teams Dog Daycare Provider Relationship Specialty Start Date End Date Rey Wyatt MD [address] [place], [place] [id number] PCP - General 11/16/24 Angela Oleary, RN [facility] Registered Nurse Cardiology 02/17/24 documented as of this encounter
--- OUTSIDE RECORDS SUMMARY | 2025-05-19 14:41 | XMS_ITS | Encounter Summary ---
Author Organization Healthcare Address [address] [place] [address] Care Team Providers Care Home Restoration Service Supervisor Name Role Phone Molly Louis MD Primary Care Provider Angela Oleary RN Unavailable Unavailable Rey Wyatt MD Primary Care Provider [phone] Reason for Visit * Reason Comments Community Resources Encounter Details Date Type Department Care Team ([facility] Contact Info) Description 08/01/2024 Patient Outreach Medical Office Building Obstetrics and Gynecology [address], [address] [place] [address] Sweta Rankin Community Resources Social [...] often do you attend chur ch or episcopal services? Never 02/22/2024 Do you [...] Recorded Patient Health Questionnaire-2 Score 0 12/15/2024 [facility] - Occupational [...] in a halfway (including now)? No 02/09/2024 [place] Depression Scale Answer Date Recorded [place] Depression Scale Total 6 08/08/2024 The thought [...] first t casi in the morning (EYE-INSPECTOR RECEIVING) to steady your nerves or to get [...] 06/09/2025 7:30 AM EST Office Visit [facility] Medicine Specialties [address], [address] [place] [address] Silverio Tam PA [address] [place] [address] 06/15/2025 12:30 PM EST Office Visit [facility] [address], 1[address] [place] [address] Kendy Sanchez APRN [address] [place] [address] 06/19/2025 8:00 AM EST Office Visit [facility] [place] [address], [address] [place] [address] Courtney Torres MD [address] [place] [address] 06/19/2025 12:30 PM EST Appointment [facility] [address] [place] [phone] 06/21/2025 12:30 PM EST Appointment [facility] [address] [place] [phone] documented as of this encounter Goals Goal [...] as of this encounter Care Teams Home Restoration Service Supervisor Relationship Specialty Start Date End Date Molly Louis MD [address] [place], [place] [id number] PCP - General Family Medicine 02/09/24 11/15/24 Rey Wyatt MD [address] [place] [address] PCP - General 11/16/24 Angela Oleary, RN [facility] Registered Nurse Cardiology 02/17/24 documented as of this encounter
--- OUTSIDE RECORDS SUMMARY | 2025-05-19 14:41 | XMS_ITS | Encounter Summary ---
Author Organization Healthcare Address [address] [place] [address] Care Team Providers Care Dental Technologist Name Role Phone Angela Oleary RN Unavailable Unavailable Rey Wyatt MD Primary Care Provider [phone] Encounter Details Date Type Department Care Team [...] a senior living (including now)? No 02/09/2024 [place] Depression Scale Answer Date Recorded [place] Depression Scale Total 6 08/08/2024 The thought [...] first t casi in the morning (EYE-BUSINESS INTEGRATION MANAGER) to steady your nerves or to [...] Description 06/09/2025 7:30 AM EST Office Visit [facility] [address], [address] [place] [address] Silverio Tam PA [address] [place] [address] 06/15/2025 12:30 PM EST Office Visit [place] [facility] [address] [place] [address] Kendy Sanchez, PANEL LAY UP WORKER [address] [place] [address] 06/19/2025 8:00 AM EST Office Visit [facility] [place] [address], [address] [place] [address] Courtney Torres MD [address] [place] [address] 06/19/2025 12:30 PM EST Appointment [facility] [address] [place] [phone] 06/21/2025 12:30 PM EST Appointment [facility] [address] [place] [phone] documented as of this encounter Goals Goal [...] documented as of this encounter Care Teams Dental Technologist Relationship Specialty Start Date End Date Rey Wyatt MD [address] [place], [place] [phone] PCP - General 11/16/24 Angela Oleary, RN [facility] Registered Nurse Cardiology 02/17/24 documented as of this encounter
--- OUTSIDE RECORDS SUMMARY | 2025-05-19 14:41 | XMS_ITS ---
Author Organization [facility] Address [address] [place] [address] Care Team Providers Care Marina Dry Dock Manager Name Role Phone Angela Oleary RN Unavailable Unavailable Rey Wyatt MD Primary Care Provider [phone] Community Health Worker Status:Active (Active) Start date:08/01/2024 Enrollment date:08/01/2024 Overview This episode type is for outpatient Community Health Workers enrolling patients in their program. Continued Care and Services Coordination
--- OUTSIDE RECORDS SUMMARY | 2025-05-19 14:41 | XMS_ITS | Encounter Summary ---
Author Organization Healthcare Address [address] [place] [address] Care Team Providers Care Association Executive Name Role Phone Angela Oleary RN Unavailable Unavailable Rey Wyatt MD Primary Care Provider [phone] Encounter Details Date Type Department Care Team [...] Recorded Patient Health Questionnaire-2 Score 0 12/15/2024 [facility] - [...] in a half-way (including now)? No 02/09/2024 [place] Depression Scale Answer Date Recorded [place] Depression Scale Total 6 08/08/2024 The thought [...] drink first t casi in the morning (EYE-INSIDE SALES ASSOCIATE) to steady your nerves or to [...] Description 06/09/2025 7:30 AM EST Office Visit [facility] [address], [address] [place] [address] Silverio Tam PA [address] [place] [address] 06/15/2025 12:30 PM EST Office Visit [place] [facility] [address], [address] [place] [address] Kendy Sanchez, HVAC LEAD [address] [place] [address] 06/19/2025 8:00 AM EST Office Visit [facility] [place] [address], [address] [place] [address] Courtney Torres MD [address] [place] [address] 06/19/2025 12:30 PM EST Appointment [facility] [address] [place] [phone] 06/21/2025 12:30 PM EST Appointment [facility] [address] [place] [phone] documented as of this encounter Goals Goal [...] documented as of this encounter Care Teams Association Executive Relationship Specialty Start Date End Date Rey Wyatt MD [address] [place], [place] [phone] PCP - General 11/16/24 Angela Oleary, RN [facility] Registered Nurse Cardiology 02/17/24 documented as of this encounter
--- NOTE | 2025-05-19 15:48 | HMH.EDGENADL ---
Discharge Plan Disposition Chief Complaint: Dizziness Prescriptions Prescriptions: No Action levothyroxine 25 mcg tablet PO Patient Comments: TAKE ONE TABLET BY MOUTH EVERY DAY fludrocortisone 0.1 mg tablet 0.1 mg PO DAILY 30 Days Qty: 30 2RF methimazole 10 mg tablet 10 mg PO BID Qty: 60 2RF buspirone 5 mg tablet See Rx Instructions .ROUTE .COMPLEX Qty: 30 2RF Dose Instruction: TAKE ONE TABLET BY MOUTH AT BEDTIME Rx Instructions: TAKE ONE TABLET BY MOUTH AT BEDTIME ondansetron 4 mg tablet,disintegrating 4 mg PO Q8HP PRN (Reason: nausea and vomiting) Qty: 20 0RF ferumoxytol [Feraheme] 510 mg/17 mL (30 mg/mL) solution 510 mg IV Q3D Rx Instructions: administer over at least 15 minutes propranolol 20 mg tablet See Rx Instructions .ROUTE .COMPLEX Qty: 90 2RF Dose Instruction: TAKE 1 AND 1/2 TABLET BY MOUTH THREE TIMES DAILY Rx Instructions: TAKE 1 AND 1/2 TABLET BY MOUTH THREE TIMES DAILY sodium chloride 1,000 mg Tablet,Soluble 1,000 mg PO BID 30 Days Qty: 60 0RF cholecalciferol (vitamin D3) 25 mcg (1,000 unit) tablet 4,000 unit PO DAILY PRN Patient Comments: TAKE FOUR TABLETS BY MOUTH EVERY DAY Referrals Follow up/Referrals: Padmini Wyatt APRN [Primary Care Provider, Medical] - See instructions Print Language Print Language: Yi Discharge ED Provider: Camryn Sun General Adult HPI General Chief complaint: Dizziness Stated complaint: vertigo-hist of POTS Time Seen by Provider: 05/19/25 15:42 Mode of Arrival: Wheelchair Source of Information: Patient Description of Symptoms (Recalled from ER Triage Doc. by RN): Pt was sent by PCP for evaluation of severe vertigo x 1 day. Pt states due to the vertigo she has had a decreased appetite. Pt states she has a hx of pots and has tried to stay hydrated. History of Present Illness HPI narrative: Patient is a 25-year-old female with a past medical history of POTS who presents to the emergency department with room spinning sensation since yesterday. Patient states that she feels off balance and like the room is spinning since yesterday. Patient states that her symptoms are significantly worse with movement. Patient states that she has never had symptoms like this before. Patient states that she does not have a history of vertigo. States that she does not have a headache, is not having any vision changes. Patient denies any chest pain or shortness of breath. Patient denies any abdominal pain nausea vomiting or diarrhea. Patient states that she has otherwise not felt ill. Patient does have a history of pots disease does try to stay well-hydrated. Patient was seen by her primary care provider who recommended that she come here to the emergency department for further evaluation. Patient states that her symptoms are significantly worse with movement, she felt unsteady on her feet. Patient has not passed out or had any syncope. Related Data Home Medications ?Medication ?Instructions ?Recorded ?Confirmed levothyroxine 25 mcg tablet mcg PO 03/31/25 05/12/25 cholecalciferol (vitamin D3) 25 4,000 unit PO DAILY PRN 05/12/25 05/12/25 mcg (1,000 unit) tablet Previous Rx's ?Medication ?Instructions ?Recorded sodium chloride 1,000 mg soluble 1,000 mg PO BID 30 days #60 tabs 12/01/24 tablet methimazole 10 mg tablet 10 mg PO BID #60 tabs 01/05/25 Held on 02/02/25. Instructions: Home Medication placed on hold at Doctor's office buspirone 5 mg tablet See Rx Instructions .Route 03/13/25 .COMPLEX #30 tabs ondansetron 4 mg disintegrating 4 mg PO Q8HP PRN nausea and 03/20/25 tablet vomiting #20 tabs fludrocortisone 0.1 mg tablet 0.1 mg PO DAILY 30 days #30 tabs 03/31/25 ferumoxytol 510 mg/17 mL (30 510 mg (17 mL) IV Q3D 2 doses 04/05/25 mg/mL) intravenous solution (Feraheme) propranolol 20 mg tablet See Rx Instructions .Route 04/06/25 .COMPLEX #90 tabs Allergies Allergy/AdvReac Type Severity Reaction Status Date / Time cinnamon Allergy Severe Swelling Verified 05/12/25 16:07 of Lip/Tongue/Throat amoxicillin (From Augmentin) Allergy Rash Verified 05/12/25 16:07 clavulanic acid (From Allergy Rash Verified 05/12/25 16:07 Augmentin) Penicillins Allergy Rash Verified 05/12/25 16:07 [facility] Disclaimer: The information contained in this section may have been updated after the patient was seen, as this information can be updated by other users. Medical History Abnormal thyroid blood test Adrenal disorder Anemia Anxiety Anxiety disorder affecting , antepartum Autonomic dysfunction Chest pain Chest pain during Depression Diarrhea Elevated brain natriuretic peptide (BNP) level Elevated cortisol level Encounter for gynecological examination (general) (routine) without abnormal findings Encounter for insertion of intrauterine contraceptive device (IUD) Enteritis due to Norovirus Gilbert's disease Heart palpitations Herpes simplex of female genitalia Hot flashes Hyperemesis affecting , antepartum Hypertension affecting Hyperthyroidism Hypokalemia Indirect hyperbilirubinemia IUD (intrauterine device) in place IUD check up Near syncope Norovirus Orthostatic syncope Palpitations Palpitations Panic attack POTS (postural orthostatic tachycardia syndrome) of unknown anatomic location Second trimester Sinus tachycardia Syncope Syncope Syncope Syncope Tachycardia Tachycardia Tobacco dependence syndrome Vomiting Vomiting and diarrhea Weakness Surgical History H/O hand surgery right Hx of cholecystectomy Hx of dilation and curettage Hx of tonsillectomy Family History Other Family history of myocardial infarction Family history of stroke Social History Smoking Status: Never smoker smoking status start date: 11 yo smoking status stop date: 2023 how long ago did patient quit smoking: quit cigarretts 2020 and quit vaping in 2023 second hand exposure: Yes alcohol intake: former substance use type: denies use current occupational status: unemployed Travel in the last 8 weeks?: None housing: house Have you lived/traveled outside US in past 30 days?: No Contact w/someone who lives/traveled outside US past 30 days?: No Exposure to someone with infectious disease in past 14 days?: No Do you have a fever (greater than 100.4 F or 38 C)?: No Have you tested positive for COVID-19?: No Exposed to someone with COVID-19 in past 14 days?: No Do you have a sore throat?: No Do you have a cough?: No Do you have any weakness?: No Do you have any diarrhea?: No Are you experiencing any unusual bleeding?: No Do you have any muscle aches/pain?: No Do you have any abdominal pain?: No Are you experiencing loss of taste or smell?: No Other Medical History Have you received the Flu Vaccine for this season: No Have you received the Pneumonia Vaccine: No ROS Obtained: Yes All systems reviewed & no additional complaints except as documented and Yes Systems reviewed as appropriate & no additional complaints except as documented Physical Exam General General appearance: alert and in no apparent distress Head Head exam: atraumatic, normocephalic and normal inspection Eye Eye exam: Present normal appearance, PERRL, EOMI and other (No nystagmus on exam); Absent scleral icterus ENT ENT exam: Present normal exam, normal external ear exam and other (no nystagmus) Neck Neck exam: Present normal inspection and full ROM Chest Chest inspection: Present normal inspection and symmetric chest wall rise Respiratory Respiratory exam: Present normal lung sounds bilaterally; Absent respiratory distress or wheezes Cardiovascular Cardiovascular exam: Present regular rate, normal rhythm and normal heart sounds Abdominal Exam Abdominal exam: Present soft and distention; Absent tenderness, guarding or rebound Extremities Exam Extremities exam: Present normal inspection and full ROM Back Exam Back exam: Present normal inspection and full ROM Neurological Exam Neurological exam: Present alert, oriented X3, CN II-XII intact and other (Normal [id number], normal [id number]); Absent motor sensory deficit Psychiatric Psychiatric exam: Present normal affect and normal mood Skin Skin exam: Present warm and dry Medical Decision Making Medical Records Medical records reviewed: Yes I reviewed the patient's medical records. Screening: Per USPSTF and CDC recommendations, given the prevalence of disease in our region, it is our hospital?s policy to screen for HIV and viral Hepatitis for all patients aged 18 and over and those with ongoing risk factors. Paresh Inquiry Pt receiving controlled substance: No Vital Signs: 05/19/25 14:27 05/19/25 17:28 05/19/25 17:30 Temperature 98.3 F Temperature Source Temporal Artery Scan Pulse Rate 80 80 Pulse Rate [Right] 77 Respiratory Rate 18 Blood Pressure 125/93 H 134/88 Blood Pressure [Right Arm] 132/81 Blood Pressure Mean Blood Pressure Mean [Right Arm] 98 Blood Pressure Source [Right Arm] Automatic Cuff Blood Pressure Position [Right Arm] Sitting 02 Sat by Pulse Oximetry 98 100 100 Oxygen Delivery Method Room Air Room Air Room Air 05/19/25 18:00 05/19/25 18:30 05/19/25 19:30 Temperature Temperature Source Pulse Rate 95 H 80 Pulse Rate [Right] Respiratory Rate 16 Blood Pressure 119/88 117/70 122/82 Blood Pressure [Right Arm] Blood Pressure Mean 85 88 Blood Pressure Mean [Right Arm] Blood Pressure Source [Right Arm] Blood Pressure Position [Right Arm] 02 Sat by Pulse Oximetry 100 98 100 Oxygen Delivery Method Room Air 05/19/25 20:00 05/19/25 20:30 05/19/25 21:21 Temperature 98 F Temperature Source Pulse Rate 88 91 H 91 H Pulse Rate [Right] Respiratory Rate 16 15 15 Blood Pressure 126/71 102/58 L 102/58 L Blood Pressure [Right Arm] Blood Pressure Mean 89 72 Blood Pressure Mean [Right Arm] Blood Pressure Source [Right Arm] Blood Pressure Position [Right Arm] 02 Sat by Pulse Oximetry 100 99 Oxygen Delivery Method Room Air Lab Data Lab results reviewed: Yes I reviewed the patient's lab results. Lab Results 05/19/25 16:00: WBC 7.3, RBC 5.37, Hgb 14.9, Hct 45.4, MCV 84.5, MCH 27.7, MCHC 32.8, RDW 14.2, Plt Count 219, MPV 11.8 H, Neut % (Auto) 66.2, Lymph % (Auto) 27.6, [place] % (Auto) 4.8, Eos % (Auto) 0.6, Baso % (Auto) 0.7, Neut # (Auto) 4.8, Lymph # (Auto) 2.0, [place] # (Auto) 0.4, Eos # (Auto) 0.0, Baso # (Auto) 0.1, Sodium 137, Potassium 4.0, Chloride 102, Carbon Dioxide 24, Anion Gap 15.0, BUN 10, Creatinine 0.80, Estimated Creat Clear 121, Estimated GFR 86, Est GFR ( Amer) 104, Glucose 94, Calcium 9.4, Magnesium 2.2, Total Bilirubin 2.1 H, AST 28, ALT 19, Alkaline Phosphatase 70, Total Protein 9.4 H D, Albumin 5.0, Globulin 4.4 H, Albumin/Globulin Ratio 1.1, Serum HCG, Qual Negative 05/19/25 16:00 05/19/25 16:00 Orders (Tests/Meds): ED MEDICATIONS Discontinued Medications Generic Name Dose Route Start Last Admin Trade Name Satinder PRN Reason Stop Dose Admin Diazepam 5 mg 05/19/25 17:14 05/19/25 17:29 Diazepam 10mg/2ml Syringe IV 05/19/25 17:15 5 mg ONCE ONE Administration Diazepam 5 mg 05/19/25 19:01 Diazepam 10mg/2ml Syringe IV 06/18/25 19:00 NEEDED PRN Seizures Diazepam 5 mg 05/19/25 20:06 05/19/25 20:15 Diazepam 10mg/2ml Syringe IV 05/19/25 20:07 5 mg ONCE ONE Administration Sodium Chloride 1,000 mls @ 999 mls/hr 05/19/25 15:56 05/19/25 19:00 Sod Chlor 0.9% 1000ml Bag IV 05/19/25 16:56 Infused .Q1H1M ONE Infusion Iopamidol 80 ml 05/19/25 16:47 05/19/25 16:50 Iopamidol-370 (76%);100ml Bottle IV 05/19/25 16:48 80 ml ONCE ONE Administration Meclizine HCl 25 mg 05/19/25 15:56 05/19/25 17:18 Meclizine 25mg Tablet PO 05/19/25 15:57 Not Given ONCE ONE Meclizine HCl 25 mg 05/19/25 19:46 05/19/25 20:15 Meclizine 25mg Tablet PO 05/19/25 19:47 25 mg ONCE ONE Administration Propranolol HCl 20 mg 05/19/25 17:15 05/19/25 17:54 Propranolol 20mg Tab PO 05/19/25 17:16 20 mg ONCE ONE Administration Sodium Chloride 50 ml 05/19/25 16:47 05/19/25 16:50 0.9 % Sodium Chloride 50 Ml Vial IV 05/19/25 16:48 50 ml ONCE ONE Administration Sodium Chloride 10 ml 05/19/25 16:47 05/19/25 16:50 Sodium Chloride 0.9% 10ml Syr (Rad Only) IV 05/19/25 16:48 10 ml ONCE ONE Administration ORDERS Category Date Time Status CT angio head Stat Cat Scan 05/19/25 15:[address] angio neck Stat Cat Scan 05/19/25 15:[address] head/brain wo con Stat Cat Scan 05/19/25 15:56 Completed CBC w/Auto Diff [Complete Blood Count Auto Diff] Stat Lab 05/19/25 16:00 Completed CMP [Comprehensive Metabolic Panel] Stat Lab 05/19/25 16:00 Completed HCG Qualitative, Serum Stat Lab 05/19/25 16:00 Completed Magnesium Stat Lab 05/19/25 16:00 Completed Medical Decision Narrative: Patient is a 25-year-old female with a history of pots disease who presents to the emergency department with vertigo. On arrival, patient was was hemodynamically stable with unremarkable vital signs. Differential includes but not limited to: Peripheral vertigo, vestibular neuritis, central vertigo, electrolyte abnormalities, amongst others. On exam, patient had a nonfocal neuroexam. Patient did not have any nystagmus on exam therefore hints exam was not performed. Patient was symptomatic with head changes eye movements as well as positional changes of her body. Given patient's presentation, CT head CTA head and neck were ordered patient was ordered IV fluids as well as meclizine. Labs were reviewed and interpreted by myself: BC showed no leukocytosis, hemoglobin was stable. CMP was unremarkable. test was negative. On further discussion, patient did not want meclizine as she is concerned about taking medications. Patient states that she has had diazepam in the past therefore IV Valium was ordered to further assist with patient's vertigo with further plan for reassessment. CT scans were reviewed and interpreted by myself and showed no acute intracranial process. On reassessment, patient continued to have vertigo patient was unable to sit up or stand without feeling vertiginous. Patient was given meclizine as well as additional IV Valium. Patient was reassessed and patient continued to have persistent vertigo. At this time, patient felt unstable walking I felt the patient warranted further evaluation and possible neurology consult MRI and possible vestibular therapy. I discussed the case with Dr. Gonzales at the transfer center at and patient was excepted to the [facility] emergency department. Critical Care Critical Care Time Critical Care Time: No
--- NOTE | 2025-05-19 15:56 | CT_ITS ---
PROCEDURE INFORMATION: Exam: CTA Neck With Contrast Exam date and time: 05/19/2025 4:43 PM Age: 25 years old Clinical indication: Vertigo TECHNIQUE: Imaging protocol: Computed tomographic angiography of the neck with contrast. Exam focused on the cervical segments of the vasculature. 3D rendering (Not supervised by radiologist): MIP and/or 3D reconstructed images were created by the technologist. Radiation optimization: All CT scans at this facility use at least one of these dose optimization techniques: automated exposure control; mA and/or kV adjustment per patient size (includes targeted exams where dose is matched to clinical indication); or iterative reconstruction. Contrast material: ISOVUE 370; Contrast volume: 80 ml; Contrast route: INTRAVENOUS (IV); COMPARISON: CT ANGIO CHEST PE PROTOCOL 02/04/2025 10:55 AM FINDINGS: Limitations: Mild motion artifact. Right common carotid artery: No stenosis. No dissection or occlusion. Right internal carotid artery: No stenosis of the extracranial segment. No dissection or occlusion. Right external carotid artery: No occlusion or stenosis of the origin. Left common carotid artery: No stenosis. No dissection or occlusion. Left internal carotid artery: No stenosis of the extracranial segment. No dissection or occlusion. Left external carotid artery: No occlusion or stenosis of the origin. Right vertebral artery: No stenosis. No dissection or occlusion. Left vertebral artery: No stenosis. No dissection or occlusion. Soft tissues: Normal. No significant soft tissue swelling. 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 IMPRESSION: No stenosis or occlusion. REFERENCES: NASCET CRITERIA. The degree of stenosis in the cervical segment of the internal carotid artery is based on NASCET criteria. Normal is no stenosis. Mild is less than 50% stenosis. Moderate is 50-69% stenosis. Severe is 70% to 99% stenosis. Total occlusion is no detectable patent lumen.
--- NOTE | 2025-05-19 15:56 | CT_ITS ---
PROCEDURE INFORMATION: Exam: CTA Head With Contrast, Arteriography Exam date and time: 05/19/2025 4:43 PM Age: 25 years old Clinical indication: Vertigo TECHNIQUE: Imaging protocol: Computed tomographic angiography of the head with contrast. Exam focused on the arteries. 3D rendering (Not supervised by radiologist): MIP and/or 3D reconstructed images were created by the technologist. Radiation optimization: All CT scans at this facility use at least one of these dose optimization techniques: automated exposure control; mA and/or kV adjustment per patient size (includes targeted exams where dose is matched to clinical indication); or iterative reconstruction. Contrast material: ISOVUE 370; Contrast volume: 80 ml; Contrast route: INTRAVENOUS (IV); COMPARISON: CT HEAD/BRAIN W CON 05/19/2025 4:40 PM FINDINGS: ANTERIOR CIRCULATION: Right internal carotid artery: Intracranial segment is patent with no significant stenosis. No aneurysm. Right middle cerebral artery: No occlusion or significant stenosis. No aneurysm. Right anterior cerebral artery: No occlusion or significant stenosis. No aneurysm. Left internal carotid artery: Intracranial segment is patent with no significant stenosis. No aneurysm. Left middle cerebral artery: No occlusion or significant stenosis. No aneurysm. Left anterior cerebral artery: No occlusion or significant stenosis. No aneurysm. POSTERIOR CIRCULATION: Right vertebral artery: No occlusion or significant stenosis. No aneurysm. Left vertebral artery: No occlusion or significant stenosis. No aneurysm. Basilar artery: No occlusion or significant stenosis. No aneurysm. Right posterior cerebral artery: No occlusion or significant stenosis. No aneurysm. Left posterior cerebral artery: No occlusion or significant stenosis. No aneurysm. Brain: No definite mass, mass effect, or midline shift. Cerebral ventricles: No ventriculomegaly. Bones/joints: Unremarkable. No acute fracture. Soft tissues: Unremarkable. IMPRESSION: No large vessel stenosis or occlusion.
--- NOTE | 2025-05-19 15:56 | CT_ITS ---
PROCEDURE INFORMATION: Exam: CT Head Without Contrast Exam date and time: 05/19/2025 4:40 PM Age: 25 years old Clinical indication: Dizziness; Additional info: Vertigo TECHNIQUE: Imaging protocol: Computed tomography of the head without contrast. Radiation optimization: All CT scans at this facility use at least one of these dose optimization techniques: automated exposure control; mA and/or kV adjustment per patient size (includes targeted exams where dose is matched to clinical indication); or iterative reconstruction. COMPARISON: CT HEAD/BRAIN WO CON 05/07/2025 6:40 PM FINDINGS: Brain: Normal. No hemorrhage. Unremarkable white matter. No mass effect. Cerebral ventricles: No ventriculomegaly. Paranasal sinuses: Visualized sinuses are unremarkable. No fluid levels. Mastoid air cells: Visualized mastoid air cells are well aerated. Bones: Unremarkable. No acute fracture. Soft tissues: Unremarkable. IMPRESSION: No acute intracranial abnormality.
[2025-05-19 16:10] LABS: Hematocrit 45.4 % (37.0-47.0); Hemoglobin 14.9 g/dL (12.2-16.2); Immature Granulocytes % 0.1 %; Mean Corpuscular HGB Conc 32.8 g/dL (31.8-35.4); Mean Corpuscular Hemoglobin 27.7 pg (27.0-31.2); Mean Corpuscular Volume 84.5 fl (81-99); Nucleated Red Blood Cells % 0 %; Platelet Count 219 K/mm3 (142-424); Red Blood Count 5.37 M/mm3 (4.20-5.40); Red Cell Distribution Width-SD 43.3 fL; White Blood Count 7.3 K/mm3 (4.8-10.8)
[2025-05-19 16:21] LABS: HCG Qualitative, Serum Negative (Negative)
[2025-05-19] MEDS: 0.9 % SODIUM CHLORIDE 1000ML 1,000 ML 999 ML IV (16:28)
[2025-05-19 16:29] LABS: Chloride 102 mmol/L (98-107)
[2025-05-19 16:30] LABS: Albumin Level 5.0 g/dl (3.5-5.0); Potassium 4.0 mmoL/L (3.5-5.1); Sodium 137 mmol/L (136-145)
[2025-05-19 16:32] LABS: Anion Gap 15.0 mEq/L (5-15); Blood Urea Nitrogen 10 mg/dl (7-17); Carbon Dioxide 24 mmol/L (22.0-30.0); Creatinine Clearance Estimated 121 mL/min (50-200); Creatinine,Serum 0.80 mg/dl (0.52-1.04); Estimated Glomerular Filt Rate 86 ml/min (>60); GFR (African American) 104 ML/MIN (>60)
[2025-05-19 16:33] LABS: Alanine Aminotransferase 19 U/L (12-78); Albumin/Globulin Ratio 1.1 (1.1-1.8); Alkaline Phosphatase 70 U/L (38-126); Aspartate Amino Transferase 28 U/L (14-36); Bilirubin,Total 2.1 mg/dl (0.2-1.3); Calcium 9.4 mg/dl (8.4-10.2); Globulin 4.4 g/dL (1.3-3.2); Glucose 94 mg/dl (74-100); Magnesium 2.2 mg/dl (1.6-2.3); Total Protein,Serum 9.4 g/dl (6.3-8.2)
[2025-05-19] MEDS: 0.9 % SODIUM CHLORIDE 50 ML VIAL IV (16:50)
[2025-05-19] MEDS: SODIUM CHLORIDE 0.9% 10ML SYR (RAD ONLY) 10 ML IV (16:50)
[2025-05-19] MEDS: IOPAMIDOL-370 (76%);100ML BOTTLE 80 ML IV (16:50)
[2025-05-19] MEDS: diazePAM 10MG/2ML SYRINGE 5 MG IV ×2 (17:29→20:15)
[2025-05-19] MEDS: PROPRANOLOL 20MG TAB 20 MG PO (17:54)
--- NOTE | 2025-05-19 20:14 | PC.NURSE ---
pt family comes to this RN and reports patient complaining of mid sternal chest tightness and pressure as well as nausea. EKG obtained and verbal order for zofran given.
[2025-05-19] MEDS: MECLIZINE 25MG TABLET 25 MG PO (20:15)
== END 2025-05-19 22:10 | disposition short-term general hospital (02) ==
PROVIDERS: Emergency Provider Student in an Organized Health Care Education/Training Program; PCP Nurse Practitioner Family
DX: R42 Dizziness and giddiness (principal); G90.A Postural orthostatic tachycardia syndrome [POTS]
CPT/HCPCS: 70450; 70496; 70498; 80053; 83735; 84703; 85025; 96361; 96374; 96376; 99285; J3360; J7030; Q9967

== ENCOUNTER → 2025-06-13 09:40 | Outpatient (RCR) | payer MEDICAID, SELFPAY | LOC: CR 09:40 | PROVIDERS: PCP Nurse Practitioner Family; Visit Provider Nurse Practitioner Family | DX: G90.A Postural orthostatic tachycardia syndrome [POTS] (principal) ==

== ENCOUNTER 2025-06-30 10:03 | Outpatient (CLI) | payer MEDICAID, SELFPAY ==
[2025-06-30 10:31] LABS: Hematocrit 41.5 % (37.0-47.0); Hemoglobin 13.5 g/dL (12.2-16.2); Immature Granulocytes % 0.2 %; Mean Corpuscular HGB Conc 32.5 g/dL (31.8-35.4); Mean Corpuscular Hemoglobin 27.8 pg (27.0-31.2); Mean Corpuscular Volume 85.4 fl (81-99); Nucleated Red Blood Cells % 0 %; Platelet Count 190 K/mm3 (142-424); Red Blood Count 4.86 M/mm3 (4.20-5.40); Red Cell Distribution Width-SD 42.5 fL; White Blood Count 6.1 K/mm3 (4.8-10.8)
[2025-06-30 12:02] LABS: Free T4 (Free Thyroxine) 1.20 ng/dl (0.78-2.19)
[2025-06-30 12:03] LABS: 25-OH Vitamin D, Total 23.0 ng/mL (30-100)
[2025-06-30 12:06] LABS: T4 (Thyroxine) 9.0 ug/dl (5.53-11.0)
[2025-06-30 12:20] LABS: Thyroid Stimulating Hormone 2.44 uIU/mL (0.465-4.68)
[2025-06-30 12:24] LABS: Ferritin 7.86 ng/ml (6.24-137)
[2025-06-30 12:58] LABS: Vitamin B12 511 pg/mL (239-931)
[2025-07-01 08:13] LABS: Triiodothyronine (T3) Free 3.1 pg/mL (2.0-4.4)
== END 2025-06-30 23:59 | disposition home or self-care (01) ==
LOC: LAB 10:03
PROVIDERS: PCP Nurse Practitioner Family; Visit Provider Nurse Practitioner Family
DX: E55.9 Vitamin D deficiency, unspecified (principal); R23.3 Spontaneous ecchymoses; D50.9 Iron deficiency anemia, unspecified; E05.90 Thyrotoxicosis, unspecified without thyrotoxic crisis or storm; G90.A Postural orthostatic tachycardia syndrome [POTS]; D64.9 Anemia, unspecified
CPT/HCPCS: 36415; 82180; 82306; 82607; 82728; 83735; 84436; 84439; 84443; 84481; 84597; 85025

== ENCOUNTER 2025-07-14 08:40 | Outpatient (CLI) | payer MEDICAID, SELFPAY ==
--- OUTSIDE RECORDS SUMMARY | 2024-08-16 14:30 | XMS_ITS | Encounter Summary ---
Author Organization Healthcare Address [address] [place] [address] Care Team Providers Care User Experience Manager Name Role Phone Molly Louis MD Primary Care Provider [phone] Angela Oleary RN Unavailable Unavailable Rey Wyatt MD Primary Care Provider [phone] Reason for Referral * Imaging (Routine) - Authorized Specialty Diagnoses / Procedures Referred By Contac t Referred To Contact Diagnoses Gilbert's syndrome Elevated bilirubin Procedures US Liver Screen US Liver Screen Silverio Tam PA [address] [facility] [address] [place] [address] Phone: tel: fax: Referral ID Status Reason Start Date Expiration Date V isits Requested Visits Authorized [id number] Authorized 08/17/2024 02/16/2026 1 1 * Consultation (Routine) - Authorized Specialty Diagnoses / Procedures Referred By Contac t Referred To Contact Anesthesiology Diagnoses Abdominal pain, epigastric History of anesthesia reaction POTS (postural orthostatic tachycardia syndrome) Silverio Tam PA [address] [facility] [address] [place] [address] Phone: tel: fax: [facility] [address] [place] [address] Phone: tel: Referral ID Status Reason Start Date Expiration Date Visits Requested Visits Authorized [id number] Authorized Consult and Treat 08/16/2024 02/15/2026 1 1 Scheduling Instructions Patient has EGD/Colonoscopy pending scheduling Has history of POTS/abnormal reaction to epidural during labor/delivery and is concerned for GA reaction Reason for Visit * Reason Comments Abdominal Cramping Encounter Details Date Type Department Care Team (Late st Contact Info) Description 08/16/2024 2:30 PM EST Office Visit [facility] [address] [place] [address] Silverio Tam PA [address] [place] [address] Hematochezia (Primary Dx); Weight loss; Serum total bilirubin elevated; Urticaria; Elevated fecal calprotectin; Gastroesophageal reflux disease, unspecified whether esophagitis present; Abdominal pain, epigastric; History of anesthesia reaction; POTS (postural orthostatic tachycardia syndrome); Gilbert's syndrome; Elevated bilirubin Social History Tobacco Use Types Packs/Day Years Used Date Smoking Tobacco: Former Cigarettes 0 Q uit: 2021 Smokeless Tobacco: Former Comments:History of vaping a fter cigarettes. Stopped when she found out she was Alcohol Use Standard Drinks/Week Comments Never 0 (1 standard drink = 0.6 oz pur e alcohol) Humiliation, Afraid, Rape, and Kick questionnair e Answer Date Recorded Within the last year, have y ou been afraid of your partner or ex-partner? No 02/09/2024 Within the last year, have y ou been humiliated or emotionally abused in other ways by your partner or ex-partner? No Within the last year, have y ou been kicked, hit, slapped, or otherwise physically hurt by your partner or ex-partner? No 02/09/2024 Within the last year, have y ou been raped or forced to have any kind of sexual activity by your partner or ex-partner? No 02/09/2024 Social Connection and Isolation Panel Answer Date Recorded In a typical week, how many times do you talk on the phone with family, friends, or neighbors? More than three times a week 02/22/2024 How often do you get togethe r with friends or relatives? Once a week 02/22/2024 How often do you attend chur ch or congregational services? Never 02/22/2024 Do you belong to any clubs o r organizations such as anglican groups, unions, fraternal or athletic groups, or school groups? No 02/22/2024 How often do you attend meet ings of the clubs or organizations you belong to? Never 02/22/2024 Are you , , di vorced, , never , or living with a partner? 02/22/2024 Overall Financial Resource Strain (CARDIA) Answe r Date Recorded How hard is it for you to pa y for the very basics like food, housing, medical care, and heating? Not very hard 02/22/2024 PHQ-2 Answer Date Recorded Patient Health Questionnaire-2 Score 0 06/12/2025 [facility] - Occupational Stress Questionnaire Answer Date Recorded Do you feel stress - tense, restless, nervous, or anxious, or unable to sleep at night because your mind is troubled all the time - these days? Not at all 02/22/2024 Exercise Vital Sign Answer Date Recorde d On average, how many days pe r week do you engage in moderate to strenuous exercise (like a brisk walk)? 0 days 02/22/2024 On average, how many minutes do you engage in exercise at this level? 0 min 02/22/2024 Hunger Vital Sign Answer Date Recorded Within the past 12 months, y ou worried that your food would run out before you got the money to buy more. Never true 02/09/20 24 Within the past 12 months, t he food you bought just didn't last and you didn't have money to get more. Never true 02/09/2024 PRAPARE - Transportation Answer Date Re corded In the past 12 months, has l ack of transportation kept you from medical appointments or from getting medications? No 01/24 In the past 12 months, has l ack of transportation kept you from meetings, work, or from getting things needed for daily living? No 02/09/2024 Housing Stability Vital Sign Answer Rodrigo e Recorded In the last 12 months, was t here a time when you were not able to pay the mortgage or rent on time? No 02/09/2024 In the last 12 months, how many places have you lived? 1 02/09/2024 In the last 12 months, was t here a time when you did not have a steady place to sleep or slept in a senior living (including now)? No 02/09/2024 [place] Depression Scale Answer Date Recorded [place] Depression Scale Total 6 08/08/2024 The thought of harming myself has occurred to me . Never 08/08/2024 PHQ-9 Answer Date Recorded Patient Health Questionnaire-9 Score 0 06/12/2025 AUDIT-C Answer Date Recorded Q1: How often do you have a drink containing alcohol? Never 05/19/2025 Q2: How many drinks containi ng alcohol do you have on a typical day when you are drinking? Patient does not drink Q3: How often do you have si x or more drinks on one occasion? Never 05/19/2025 CAGE ASSESSMENT Answer Date Recorded Cage unable to access Not on file 07/16/2024 Cage max number of drinks Not on file 2023 Cage Beverages a week Not on file 07/16/2024 Have you ever felt you should CUT down on your d rinking? 0 07/16/2024 Have you been ANNOYED by people criticizing your drinking? 0 07/16/2024 Have you felt GUILTY about your drinking? 0 07/16/2024 Have you had a drink first t casi in the morning ([employer]UD[employer] SU[employer]SEL[employer]) to steady your nerves or to get rid of a hangover? 0 07/16/2024 CAGE Questionnaire Score 0 024 Utilities Answer Date Recorded In the past 12 months has th e electric, gas, oil, or water company threatened to shut off services in your home? No 02/09/2024 Comments No Sex and Gender Information Value Date Recorded Sex Assigned at Not on file Legal Sex Female 7:36 PM EDT Gender Identity Not on file Sexual Orientation Not on file documented as of this encounter Last Filed Vital Signs Vital Sign Reading Time Taken Comments Blood Pressure 103/69 08/16/2024 2:06 PM EST Pulse 68 08/16/2024 2:06 PM EST Temperature 36.7 C (98 F) 08/16/2024 2:06 PM EST Respiratory Rate - - Oxygen Saturation 99% 08/16/2024 2:06 PM EST Inhaled Oxygen Concentration - - Weight 60.1 kg (132 lb 7.9 oz) 08/16/2024 2:06 P M EST Height 165.1 cm (5' 5 ) 08/16/2024 2:06 PM EST Body Mass Index 22.05 08/16/2024 2:06 PM EST documented in this encounter Functional Status * Question Answer Date of Assessment Author Precautions Fall risk 05/21/2025 8:00 AM EDT Jacquelin Domínguez LPN * AUDIT-C Score Answer Date of Assessment Author 0 05/19/2025 11:33 PM EDT Fausto Ye RN * Question Answer Date of Assessment Author Q1: How often do you have a drink containing alcohol? Never 05/19/2025 11:33 PM EDT Fausto Hauser RN Q2: How many drinks containing alcohol do you have on a typical day when you are drinking? Patient does not drink 05/19/2025 11:33 PM EDT Fausto Hauser RN Q3: How often do you have six or more drinks on one occasion? Never 05/19/2025 11:33 PM EDT Fausto Hauser RN * Question Answer Date of Assessment Author Scale Used Hernando 05/20/2025 6:07 AM EDT Debra Cheng RN * Question Answer Date of Assessment Author Precautions Fall risk 05/21/2025 8:00 AM EDT Jacquelin Domínguez LPN * Over the past 2 weeks, how often have you been bothered by any of the following problems? Question Answer Date of Assessment Author Little interest or pleasure in doing things Not at all 06/12/2025 9:12 AM EST Missael Dowling Feeling down, depressed, or hopeless Not at all 05/27 9:12 AM EST Missael Dowling Patient Health Questionnaire-2 Score 0 05/27 9:12 AM EST Missael Dowling * Question Answer Date of Assessment Author Trouble falling or staying a sleep, or sleeping too much Not at all 06/12/2025 9:12 AM Missael Arreguin Feeling tired or having kentrell le energy Not at all 06/12/2025 9:12 AM Missael Arreguin Poor appetite or overeating Not at all 06/12/2025 9: 12 AM Missael Arreguin Feeling bad about yourself - or that you are a failure or have let yourself or your family down Not at all 06/12/2025 9:12 AM Missael Arreguin Trouble concentrating on thi ngs, such as reading the newspaper or watching television Not at all 06/12/2025 9:12 AM Missael Arreguin Moving or speaking so slowly that other people could have noticed. Or the opposite - being so fidgety or restless that you have been moving around a lot more than usual Not at all 06/12/2025 9:12 AM Missael Arreguin Thoughts that you would be b gómez off or hurting yourself in some way Not at all 06/12/2025 9:12 AM Missael Arreguin Patient Health Questionnaire-9 Score 0 05/27 9:12 AM Missael Arreguin * Calculated C-SSRS Risk Score (Lifetime/Recent) Answer Date of Assessment Author No Risk Indicated 05/21/2025 8:00 AM EDT Jacquelin Serrano LPN * How difficult have these problems made it for you to do your work, take care of things at home, or get along with other people? Answer Date of Assessment Author Not difficult at all 12/15/2024 2:22 PM EDT Kingsley Shabazz * How difficult have these problems made it for you to do your work, take care of things at home, or get along with other people? Answer Date of Assessment Author Not difficult at all 06/12/2025 9:12 AM Missael Regan * Question Answer Date of Assessment Author 1. Wish to be (Past 1 Month) No 05/21/2025 8:00 AM EDT Jacquelin Serrano LPN 2. Non-Specific Active Suicidal Thoughts (Past 1 Month) No 05/21/2025 8:00 AM EDT Jacquelin Serrano LPN 6. Suicidal Behavior (Lifetime) No 05/21/2025 8:00 AM EDT Jacquelin Serrano LPN documented as of this encounter Mental Status * Question Answer Entry Date Author Precautions Fall risk 05/21/2025 8:00 AM EDT Jacquelin Goel LPN * Question Answer Entry Date Author Scale Used Hernando 05/20/2025 6:07 AM EDT Debra Cheng RN documented in this encounter Miscellaneous Notes * Addendum Note - Silverio Tam PA - 08/16/2024 2:30 PM ESTAddended by: SILVERIO TAM on: 06/12/2025 09:32 AM Modules accepted: Orders * Progress Notes - Silverio Tam PA - 08/16/2024 2:30 PM EST General Hepatology Note Subjective Patient ID: Francy Delarosa is a 24 y.o. female. The following portions of the chart were reviewed this encounter and updated as appropriate: Tobacco Allergies Meds Problems Med Hx Surg Hx Fam Hx Chief Complaint Patient presents with Abdominal Cramping History of Presenting Illness Ms. Francy Delarosa is a 24 y.o. female presenting for follow up in the GI clinic for ongoing concerns of hyperbilirubinemia, abdominal pain and hematochezia. The patient has an additional past medical history of GERD with history of peptic ulceration, Gilbert's Syndrome and POTS. The patient is s/pcholecystectomy in July 2023. The patient was last seen in clinic for consultation in March 2024. The patient reports she has ongoing concerns of epigastric burning and pain usually secondary to eating; often with abdominal bloating. She also reports she has been constipated worse, and also reports ongoing hematochezia. She states given recent delivery of her baby on 07/16/24 (approximately 4 weeks ago; baby is healthy. This is her 5th /3rd living child), she could have hemorrhoids. She declines an in-office rectal exam today. She is taking miralax for her current bowel movements. Her other concerns remain relative to her POTS (which she is managing with cardiology); as she continues to have dizzy spells at times when trying to walk longer distances or stand. After showering, she states she feels awful. She has had worsening dizzy and presyncope spells when showering, but also reports continued rash/reactions to water exposures like this. She has also experienced ongoing rashes and urticaria related to certain food intake. She is unable to determine specifically what foods worsen her reactions; and her recent food allergy testing was reportedly negative. She is concerns for MCAST given her symptoms and history of POTS. She was previously going to get this work up per immunology, but it was not completed. The patient would like to move forward with scopes that were discussed at her last visit. She has had worsened symptoms from PPIs, and states that pepcid worked okay during her to somewhat help with her upper GI symptoms. She also reports she is concerned about anesthesia relative to the scopes, as she had a very bad reaction to her epidural and also seemed to rapidly metabolize it; requiring multiple doses of the medication. She was previously reporting weight loss; even during . However, she is now improving her weight since delivery; is currently 132 pounds today. Last visit was 119 pounds. States her baselinewas 145 pounds prior to her illness. Patient denies dysphagia or chest pain. No lower leg swelling. No vomiting or diarrhea. No hematemesis or melena reported. No confusion or memory changes. No fever or chills. No unintentional weight changes. No jaundice or icterus. No NSAID use. No tobacco, alcohol or illicit drug use reported. Thepatient states she has crohn's in her family in her brother and niece. Past Medical History Past Medical History: Diagnosis Date Anemia Anxiety GERD (gastroesophageal reflux disease) Gilbert syndrome 2019 Peptic ulceration POTS (postural orthostatic tachycardia syndrome) 01/2024 Urinary tract infection Surgical History Past Surgical History: Procedure Laterality Date CHOLECYSTECTOMY 07/2023 HAND SURGERY 07/2022 TONSILLECTOMY 2002 Family History Family History Problem Relation Name Age of Onset Autoimmune disease Mother Avril fagan Heart failure Father Hypertension Father Autoimmune disease Brother Tristan fagan Cancer Maternal Grandmother Melania sheridan Asthma Child Social History Social History Socioeconomic History Marital status: Spouse name: Scar Ramirez Number of children: 2 Years of education: Not on file Highest education level: Not on file Occupational History Not on file Tobacco Use Smoking status: Former Current packs/day: 0.00 Types: Cigarettes Quit date: 2021 Years since quittin.0 Smokeless tobacco: Former Tobacco comments: History of vaping after cigarettes. Stopped when she found out she was Vaping Use Vaping status: Never Used Substance and Sexual Activity Alcohol use: Never Drug use: Never Sexual activity: Yes Partners: Male control/protection: None Comment: Im Other Topics Concern Not on file Social History Narrative Not on file Social Drivers of Health Financial Resource Strain: Low Risk (02/22/2024) Overall Financial Resource Strain (CARDIA) Difficulty of Paying Living Expenses: Not very hard Food Insecurity: No Food Insecurity (02/09/2024) Hunger Vital Sign Worried About Running Out of Food in the Last Year: Never true Ran Out of Food in the Last Year: Never true Transportation Needs: No Transportation Needs (02/09/2024) PRAPARE - Transportation Lack of Transportation (Medical): No Lack of Transportation (Non-Medical): No Physical Activity: Inactive (02/22/2024) Exercise Vital Sign Days of Exercise per Week: 0 days Minutes of Exercise per Session: 0 min Stress: No Stress Concern Present (02/22/2024) [place] [facility] - Occupational Stress Questionnaire Feeling of Stress : Not at all Social Connections: Moderately Isolated (02/22/2024) Social Connection and Isolation Panel [NHANES] Frequency of Communication with Friends and Family: More than three times a week Frequency of Social Gatherings with Friends and Family: Once a week Attends Zoroastrian Services: Never Active Member of Clubs or Organizations: No Attends Club or Organization Meetings: Never Marital Status: Intimate Partner Violence: Not At Risk (02/09/2024) Humiliation, Afraid, Rape, and Kick questionnaire Fear of Current or Ex-Partner: No Emotionally Abused: No Physically Abused: No Sexually Abused: No Housing Stability: Low Risk (02/09/2024) Housing Stability Vital Sign Unable to Pay for Housing in the Last Year: No Number of Places Lived in the Last Year: 1 Unstable Housing in the Last Year: No Review of Systems A 14 point review of systems negative except for HPI Outpatient Medications Current Outpatient Medications Medication Instructions Blood Glucose Monitoring Suppl (Schoolfy[employer] Verio Reflect) w/Device kit busPIRone (BUSPAR) 5 mg, Oral, Nightly, Takes at 8PM famotidine (PEPCID) 20 mg, Oral, 2 times daily ibuprofen 600 mg, Oral, Every 6 hours PRN Lancets (OneTouch Delica Plus [id number]) misc midodrine (PROAMATINE) 2.5 mg, Oral, 3 times daily ondansetron (ZOFRAN) 4 mg, Oral, Every 8 hours PRN ondansetron ODT (ZOFRAN-ODT) 4 mg, Oral, Every 8 hours PRN OneTouch Verio test strip 1 each, As needed potassium & sodium phosphates (Phos-NaK) 280-160-250 MG packet 1 packet, Oral, Daily Vit-Fe Fumarate-FA ( Vitamins) 28-0.8 MG tablet 1 tablet, Oral, Daily propranolol (INDERAL) 10 mg, Oral, Daily propranolol (INDERAL) 10 mg, Oral, 2 times daily PRN, Takes at 9am and 4:30pm senna-docusate (Codi-Colace) 8.6-50 MG tablet 1 tablet, Oral, Daily simethicone (MYLICON) 80 mg, Oral, Every 6 hours PRN sodium chloride (Randolph Nasal [place]) 0.65 % nasal spray 1 spray, Each Nostril, As needed Tylenol 650 mg, Oral, Every 6 hours PRN Allergies Allergies Allergen Reactions Amoxicillin-Pot Clavulanate Other - please document in the comment field, Rash and Swelling Cinnamon Other - please document in the comment field Penicillin G Swelling Betamethasone Dipropionate (Augmented) [Betamethasone] Other - please document in the comment field Patient states she has not had a reaction to this. Vaccinations Immunization History Administered Date(s) Administered DTaP, Unspecified 04/26/2002 HPV, Quadrivalent 05/29/2011 Hep A, ped/adol, 2 dose 02/20/2010, 11/21/2010 IPV 04/26/2002 Influenza, injectable, quadrivalent, preservative free 04/29/2023 Jasmine COVID-19 Vaccine (Blue Cap) 18+ 02/21/2021 MMR 04/26/2002 Tdap 02/20/2010 Varicella 07/06/2001 Vital Signs Visit Vitals BP 103/69 Pulse 68 Temp 36.7 ??C (98 ??F) Ht 1.651 m (5' 5 ) Wt 60.1 kg (132 lb 7.9 oz) SpO2 99% BMI 22.05 kg/m?? OB Status Recent Smoking Status Former BSA 1.66 m?? Physical Exam General - well nourished and developed. She is in no acute distress. She is in a wheel chair today. HEENT - No scleral icterus, EOMI, atraumatic, normocephalic; ears located midway on head with normal appearance, nose midline without discharge. Cardiovascular - No LE edema present Respiratory - respiratory rate even and non-labored Dermatologic - No jaundice, spider angiomata, or palmar erythema. No clubbing MSK - no deformities noted; no edema or erythema of joints visible, normal gait and station Neuro - Oriented to time and place. Psychiatric - pleasant, calm, cooperative. Labs MELD 3.0: 9 at 08/16/2024 3:45 PM MELD-Na: 7 at 08/16/2024 3:45 PM Calculated from: Serum Creatinine: 0.65 mg/dL (Using min of 1 mg/dL) at 08/16/2024 3:45 PM Serum Sodium: 140 mmol/L (Using max of 137 mmol/L) at 08/16/2024 3:45 PM Total Bilirubin: 1.3 mg/dL at 08/16/2024 3:45 PM Serum Albumin: 4.3 g/dL (Using max of 3.5 g/dL) at 08/16/2024 3:45 PM INR(ratio): 1 at 08/16/2024 3:45 PM Age at listing (hypothetical): 24 years Sex: Female at 08/16/2024 3:45 PM AFP No results found for: AFP HgB Lab Results Component Value Date/Time HGB 13.7 08/16/2024 1545 HGB 11.2 07/18/2024 0103 WBC Lab Results Component Value Date/Time WBC 6.01 08/16/2024 1545 WBC 9.11 07/18/2024 0103 PLT Lab Results Component Value Date/Time PLT 159 08/16/2024 1545 PLT 130 (L) 07/18/2024 0103 A1c No results found for: HGBA1C Lab Results Component Value Date/Time AST 19 08/16/2024 1545 ALT 14 08/16/2024 1545 ALKPHOS 57 08/16/2024 1545 BILITOT 1.3 (H) 08/16/2024 1545 INR 1.0 08/16/2024 1545 PLT 159 08/16/2024 1545 ALBUMIN 4.3 08/16/2024 1545 HEPBSAG Negative 04/18/2024 1013 HECG Negative 02/07/2024 2211 FERRITIN 101 03/21/2024 1311 CREATININE 0.65 08/16/2024 1545 HGB 13.7 08/16/2024 1545 TSH 1.46 04/29/2024 1737 Assessment and Plan Problem List Items Addressed This Visit Gastroesophageal reflux disease Relevant Medications famotidine (Pepcid) 20 MG tablet Other Relevant Orders Helicobacter pylori Antigen EGD KIT Mutation; Yes; No; No; Immediate - Miscellaneous Test Gilbert's syndrome Relevant Orders US Liver Screen Hematochezia - Primary Relevant Orders Calprotectin, Stool CBC and differential (Completed) Comprehensive metabolic panel (Completed) Protime-INR (Completed) Colonoscopy KIT Mutation; Yes; No; No; Immediate - Miscellaneous Test POTS (postural orthostatic tachycardia syndrome) Relevant Orders Ambulatory referral to Anesthesiology KIT Mutation; Yes; No; No; Immediate - Miscellaneous Test Other Visit Diagnoses Weight loss Relevant Orders Calprotectin, Stool Serum total bilirubin elevated Relevant Orders Tryptase CBC and differential (Completed) Comprehensive metabolic panel (Completed) Protime-INR (Completed) KIT Mutation; Yes; No; No; Immediate - Miscellaneous Test Urticaria Relevant Orders Tryptase CBC and differential (Completed) Comprehensive metabolic panel (Completed) KIT Mutation; Yes; No; No; Immediate - Miscellaneous Test Elevated fecal calprotectin Relevant Orders Calprotectin, Stool Colonoscopy KIT Mutation; Yes; No; No; Immediate - Miscellaneous Test Abdominal pain, epigastric Relevant Orders Helicobacter pylori Antigen EGD Ambulatory referral to Anesthesiology KIT Mutation; Yes; No; No; Immediate - Miscellaneous Test History of anesthesia reaction Relevant Orders Ambulatory referral to Anesthesiology KIT Mutation; Yes; No; No; Immediate - Miscellaneous Test Elevated bilirubin Relevant Orders US Liver Screen #Colonoscopy #Episodic Hematochezia - Patient reports life-long alternating bowel habits with worsening episodes during ; has now returned to primarily constipation following . - Ongoing episodes of hematochezia. Is unsure of presence of hemorrhoids; declines in-office rectalexam today. - Fecal Calprotectin 03/2024: 87 - Continue miralax for bowel habits - Repeat Fecal Calpotectin is pending - Colonoscopy is pending - anesthesiology pre-clearance requested #GERD #Nausea #Abdominal pain #History of Peptic Ulceration - Patient reports extensive reflux and nausea. Previous vomiting has improved following completion. - Appetite is healthy; but has limited dietary intake at times given symptoms. - Has had some weight gain since completion as well; 132 pounds today; previously 119 pounds. - Denies many food options that don't contribute to abdominal pain, GERD, nausea or early satiety. - Previous trials of PPI worsened symptoms per patient report. - Food allergy testing negative per immunology - Restart famotidine 20mg twice daily - H Pylori stool study is pending - EGD is pending - anesthesiology pre-clearance requested #Elevated T-biliruin #Gilbert's Syndrome #S/p cholecystectomy - Patient has elevated total bilirubin in the setting of known Gilbert's disease. - Isolated tBili; liver related enzymes persistently WNL. Bilirubin has improved today on exam; 1.3. - No jaundice or icterus reported or visible on exam today. - US Liver Screen is pending - Continue to monitor. #POTS #Pre-Syncope #Urticaria - Patient reports ongoing episodes of pre-syncope and dizziness secondary to POTS; monitored with Cardiology - Concerns of MCAST in the setting of urticaria secondary to water exposures in showers, and activity. This started within the last 6-12 months. - Reports shortness of air and 'anaphylactic-like' episodes - unknown exposure or trigger - CBC today shows normalized blood counts following low RBC and platelets throughout . WBCis normal persistently. - Allergy testing negative for other correlative exposures. - Given patient's ongoing symptoms in the setting of POTS (likely to concurrently occur in patients); will complete two additional blood tests to rule in/out consideration of MCAST. - Tryptase pending; KIT Mutation pending - Colonoscopy and EGD pending - anesthesiology pre-clearance requested #Healthcare Maintenance Immunity to Hepatitis A- NA Immunity to Hepatitis B- No immunity HBsAg - Negative EGD- Pending Colonoscopy - Pending A total of 60 minutes was spent on this patient encounter - educating patient, interpreting and discussing labs and imaging, impressions, prognosis, risks/benefits of current treatment options, risk factor reduction, instructions for management, and documentation. Care coordination provided included review and summary of medical records and additional diagnostic research, phone collaboration and consult with peers. Note to patient: The Century Cures Act makes medical notes like these available to patients inthe interest of transparency. However, be advised this is a medical document. It is intended as [id number] communication. It is written in medical language and may contain abbreviations or verbiagethat are unfamiliar. It may appear blunt or direct. Medical documents are intended to carry relevant information, facts as evident, and the clinical opinion of the practitioner RTC 4 Months documented in this encounter Plan of Treatment Upcoming Encounters Date Type Department Care Team (Late st Contact Info) Description 08/08/2025 1:20 PM EST Office Visit [facility] [place], operated [facility] [address] [place] [address] Antoine Manrique MD [address] [place] [address] 08/28/2025 10:40 AM EST Office Visit [facility] [address], [address] [place] [address] Courtney Torres MD [address] [place] [address] 09/12/2025 12:20 PM EST Office Visit [facility] [place], operated [facility] [address] [place] [address] Jessica Mcdonnell PA [address] [facility] [address] [place] [address] 11/07/2025 2:00 PM EDT Office Visit [facility] [address] [place] [address] Maddie Mtz PA [address] [facility] [address] [place] [address] Scheduled Orders Name Type Priority Associated Diagnoses Orde r Schedule US Liver Screen Imaging Routine Gilbert's syndrome Elevated bilirubin Expected: 06/12/2025 (Approximate), Expires: 12/14/2026 Scheduled Referrals Name Type Priority Associated Diagnoses Order Schedule Ambulatory referral to Anesthesiology Outpatient Referral Routine Abdominal pain, epigastric History of anesthesia reaction POTS (postural orthostatic tachycardia syndrome) 1 Occurrences starting 08/16/2024 until 02/13/2026 documented as of this encounter Goals Goal Patient Goal Type Associated Problems Recent Progress Patient-Stated? Author Delayed Delivery Care Plan CPM S22 PP LABOR (OBSTETRICS) No Open Scheduling, Background documented as of this encounter Results * Protime-INR (08/16/2024 3:45 PM EST) Prothrombin Time 13.2 12.0 - 14.3 sec LAB COAGULATION METHOD 08/16/2024 4:52 PM EST [facility] INR 1.0 0.9 - 1.1 LAB COAGULATION METHOD 08/16/2024 4:52 PM EST [facility] Blood Venous blood specimen / Unknown Venipuncture / Unknown 08/16/2024 3:45 PM EST 08/16/2024 3:45 PM EST Narrative [facility] - 08/16/2024 4:52 PM EST OPTIMAL INR RANGES FOR PATIENT ON ORAL ANTICOAGULANT THERAPY Prevention of venous thromboembolism INR 2.0 to 3.0 In patients with heart disease: Atrial fibrillation INR 2.0 to 3.0 Valvular heart disease INR 2.0 to 3.0 Tissue heart valves INR 2.0 to 3.0 Mechanical prosthetic valves INR 2.5 to 3.5 Prevention of recurrent [place] INR 2.5 to 3.5 us [facility] BLOOD ORDERABLES Final Res ult [facility] [address] [place] [address] * (ABNORMAL) Comprehensive metabolic panel (08/16/2024 3:45 PM EST) Glucose, Plasma 83 74 - 99 mg/dL 08/16/2024 5:22 PM EST [facility] BUN, Plasma 7 7 - 21 mg/dL 08/16/2024 5:22 PM [facility] Creatinine, Plasma 0.65 0.60 - 1.10 mg/dL 08/16/2024 5:22 PM [facility] BUN/Creatinine Ratio 11 08/16/2024 5:22 PM EST [facility] Sodium, Plasma 140 136 - 145 mmol/L 08/16/2024 5:22 PM [facility] Potassium, Plasma 4.2 3.6 - 4.9 mmol/L 08/16/2024 5:22 PM [facility] Chloride, Plasma 107 97 - 107 mmol/L 08/16/2024 5:22 PM [facility] CO2, Plasma 22 22 - 29 mmol/L 08/16/2024 5:22 PM [facility] Anion Gap 11 6 - 16 mmol/L 08/16/2024 5:22 PM [facility] Total Calcium, Plasma 9.3 8.9 - 10.2 mg/dL 08/16/2024 5:22 PM [facility] Total Protein 7.2 6.3 - 7.9 g/dL 08/16/2024 5:22 PM [facility] Albumin, Plasma 4.3 3.5 - 5.2 g/dL 08/16/2024 5:22 PM [facility] AST, Plasma 19 10 - 35 U/L 08/16/2024 5:22 PM [facility] ALT, Plasma 14 10 - 35 U/L 08/16/2024 5:22 PM [facility] Alkaline Phosphatase, Plasma 57 35 - 104 U/L 08/16/2024 5:22 PM [facility] Total Bilirubin, Plasma 1.3(H) 0.2 - 1.1 mg/dL 08/16/2024 5:22 PM [facility] eGFRcr 124.7 mL/min/1.7 3m*2 08/16/2024 5:22 PM [facility] Comment:Reported eGFRcr in m L/min/1.73m2 is based the CKD-EPI 2020 equation that does not use a race coefficient. Blood Venous blood specimen / Unknown Venipuncture / Unknown 08/16/2024 3:45 PM EST 08/16/2024 3:45 PM EST [facility] BLOOD ORDERABLES Final Res ult [facility] [address] [place] [address] * (ABNORMAL) CBC and differential (08/16/2024 3:45 PM EST) WBC Count 6.01 3.70 - 10.30 10*3/uL LAB HEMATOLOGY METHOD 08/16/2024 4:39 PM EST [facility] RBC Count 4.48 3.90 - 5.20 10*6/uL LAB HEMATOLOGY METHOD 08/16/2024 4:39 PM EST [facility] HGB 13.7 11.2 - 15.7 g/dL LAB HEMATOLOGY METHOD 08/16/2024 4:39 PM EST [facility] HCT 41.4 34.0 - 45.0 % LAB HEMATOLOGY METHOD 08/16/2024 4:39 PM EST [facility] Platelet Count 159 155 - 369 10*3/uL LAB HEMATOLOGY METHOD 08/16/2024 4:39 PM EST [facility] MCV 92 79 - 98 fL LAB HEMATOLOGY METHOD 08/16/2024 4:39 PM EST [facility] MCH 30.6 26.0 - 32.0 pg LAB HEMATOLOGY METHOD 08/16/2024 4:39 PM EST [facility] MCHC 33.1 30.7 - 35.5 g/dL LAB HEMATOLOGY METHOD 08/16/2024 4:39 PM EST [facility] RDW 12.4 11.5 - 14.5 % LAB HEMATOLOGY METHOD 08/16/2024 4:39 PM EST [facility] MPV 11.9 8.8 - 12.5 fL LAB HEMATOLOGY METHOD 08/16/2024 4:39 PM EST [facility] nRBC 0.0 <=0.0 per 100 WBCs LAB HEMATOLOGY METHOD 08/16/2024 4:39 PM EST [facility] Differential Type Automated LAB HEMATOLOGY METHOD 08/16/2024 4:39 PM EST [facility] Neutrophils % 58 % LAB HEMATOLOGY METHOD 08/16/2024 4:39 PM EST [facility] Lymphocytes % 35 % LAB HEMATOLOGY METHOD 08/16/2024 4:39 PM EST [facility] Monocytes % 5 % LAB HEMATOLOGY METHOD 08/16/2024 4:39 PM EST [facility] Eosinophils % 1 % LAB HEMATOLOGY METHOD 08/16/2024 4:39 PM EST [facility] Basophils % 1 % LAB HEMATOLOGY METHOD 08/16/2024 4:39 PM EST [facility] Immature Granulocytes % 0 % LAB HEMATOLOGY METHOD 08/16/2024 4:39 PM EST [facility] Neutrophils Absolute 3.49 1.60 - 6.10 10*3/uL LAB HEMATOLOGY METHOD 08/16/2024 4:39 PM EST [facility] Lymphocytes Absolute 2.12 1.20 - 3.90 10*3/uL LAB HEMATOLOGY METHOD 08/16/2024 4:39 PM EST [facility] Monocytes Absolute 0.29(L) 0.30 - 0.90 10*3/uL LAB HEMATOLOGY METHOD 08/16/2024 4:39 PM EST [facility] Eosinophils Absolute 0.05 0.00 - 0.50 10*3/uL LAB HEMATOLOGY METHOD 08/16/2024 4:39 PM EST [facility] Basophils Absolute 0.04 0.00 - 0.10 10*3/uL LAB HEMATOLOGY METHOD 08/16/2024 4:39 PM [facility] Immature Granulocytes Absolute 0.02 0.00 - 0.06 10*3/uL LAB HEMATOLOGY METHOD 08/16/2024 4:39 PM EST [facility] Blood Venous blood specimen / Unknown Venipuncture / Unknown 08/16/2024 3:45 PM EST 08/16/2024 3:45 PM EST [facility] - 08/16/2024 4:39 PM EST Therapeutic decision making should be based on absolute values, rather than percentages. us [facility] BLOOD ORDERABLES Final Res ult [facility] [address] [place] [address] * Tryptase (08/16/2024 3:45 PM EST) TRYPTASE 4.6 <=10.9 ug/L 08/19/2024 1:21 PM EST [facility] Serum Venous blood specimen / Unknown 08/16/2024 3:45 PM EST 08/16/2024 3:45 PM EST [facility] BLOOD ORDERABLES Final Res ult [facility] [address] [place] [address] documented in this encounter Visit Diagnoses Diagnosis Hematochezia- Primary Blood in stool Weight loss Loss of weight Serum total bilirubin elevated Disorders of bilirubin excretion Urticaria Unspecified urticaria Elevated fecal calprotectin Gastroesophageal reflux disease, unspecified whether esophagitis present Abdominal pain, epigastric History of anesthesia reaction POTS (postural orthostatic tachycardia syndrome) Unspecified tachycardia Gilbert's syndrome Disorders of bilirubin excretion Elevated bilirubin documented in this encounter Additional Health Concerns Active Problems Noted Date Diagnosed Date CPM S22 PP LABOR (OBSTETRICS) 02/24/2024 Infection Onset Date Last Indicated Resolved Time Gastrointestinal Rule-Out 11/20/2024 11/20/2024 9:53 PM EDT Assessment Noted Time PHQ-9 Depression Total Score: 3 08/16/19 2:09 PM EST A fall risk assessment has been complete d for the patient 08/16/2024 2:09 PM EST A Body Mass Index follow-up plan has been documented for the patient 08/17/2024 3:20 PM EST documented as of this encounter Care Teams User Experience Manager Relationship Specialty Start Date End Date Molly Louis MD [address] [place] [address] PCP - General Family Medicine 02/09/24 11/15/24 Rey Wyatt MD [address] [facility] [address] [place] [address] PCP - General 11/16/24 06/25/25 Angela Oleary, RN [facility] None Registered Nurse Cardiology 02/17/24 documented as of this encounter
--- OUTSIDE RECORDS SUMMARY | 2025-05-19 22:36 | XMS_ITS | Encounter Summary ---
Author Organization [facility] Address [address] [place] [address] Care Team Providers Care Outdoor Pursuits Instructor Name Role Phone Angela Oleary RN Unavailable Unavailable Rey Wyatt MD Primary Care Provider Reason for Referral * Consultation (Routine) - Authorized Specialty Diagnoses / Procedures Referred By Contac t Referred To Contact Family Medicine Diagnoses Near syncope POTS (postural orthostatic tachycardia syndrome) Lorenzo Aguillon MD [address] [place] [address] Phone: tel: fax: Referral ID Status Reason Start Date Expiration Date V isits Requested Visits Authorized [id number] Authorized 05/21/2025 11/20/2026 1 1 * Consultation (Routine) - Authorized Specialty Diagnoses / Procedures Referred By Contjocelyn joe Referred To Contact Otolaryngology Diagnoses Near syncope POTS (postural orthostatic tachycardia syndrome) Lorenzo Aguillon MD [address] [place] [address] Phone: tel: fax: [facility] [address] [place] [address] Phone: tel: fax: Referral ID Status Reason Start Date Expiration Date Visits Requested Visits Authorized [id number] Authorized Specialty Services Required 11/20/2026 1 1 * Consultation (Routine) - Authorized Specialty Diagnoses / Procedures Referred By Mili joe Referred To Contact Physical Therapy Diagnoses Near syncope POTS (postural orthostatic tachycardia syndrome) Lorenzo Aguillon MD [address] [place] [address] Phone: tel: fax: Referral ID Status Reason Start Date Expiration Date Visits Requested Visits Authorized [id number] Authorized Consult and Treat 05/21/2025 11/20/2026 1 1 Reason for Visit * Reason Comments Dizziness * Auth/Cert (Routine) Specialty Diagnoses / Procedures Referred By Mili joe Referred To Contact Diagnoses Dizziness POTS (postural orthostatic tachycardia syndrome) Near syncope persistent vertigo Toi Tolentino MD [address] [place] [address] Phone: tel: fax: [facility] [address] [place] [address] Phone: tel: Referral ID Status Reason Start Date Expiration Date Visits Re quested Visits Authorized [id number] 1 1 Encounter Details Date Type Department Care Team (Latest Contact Info) Description 05/19/2025 11:36 PM EDT - 05/21/2025 4:08 PM EDT Hospital Encounter [facility] [address] [place] [address] Jaren Holguin, DO [address] [place] [address] Toi Tolentino MD [address] [place] [address] Lorenzo Aguillon MD [address] [place] [address] Near syncope (Primary Dx); POTS (postural orthostatic tachycardia syndrome); Dizziness Discharge Disposition: Home or Self Care Social [...] Recorded Patient Health Questionnaire-2 Score 0 12/15/2024 [facility] [place] of Occupat ional Health - Occupational Stress [...] a skilled nursing (including now)? No 02/09/2024 Regina Depression Scale Answer Date Recorded Regina Depression Scale Total 6 08/08/2024 The thought of harming myself has occurred to me . 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 0 07/16/2024 CAGE Questionnaire Score 0 024 Utilities Answer Date Recorded In the past 12 months has th e [facility], gas, oil, or water company threatened to shut off services in your home? No 02/09/2024 Comments No Sex and Gender Information Value Date Recorded Sex Assigned at Not on file Legal Sex Female 7:36 PM EDT Gender Identity Not on file Sexual Orientation Not on file documented as of this encounter Last Filed Vital Signs Vital Sign Reading Time Taken Comments Blood Pressure 114/73 05/21/2025 12:42 PM EDT Pulse 74 05/21/2025 12:42 PM EDT Temperature 36.6 C (97.8 F) 05/21/2025 12:42 PM EDT Respiratory Rate 18 05/21/2025 7:56 AM EDT Oxygen Saturation 100% 05/21/2025 12:42 PM EDT Inhaled Oxygen Concentration - - Weight 85.7 kg (188 lb 15 oz) 05/21/2025 6:00 AM EDT Height 167.6 cm (5' 6 ) 05/20/2025 5:23 AM EDT Body Mass Index 30.49 05/20/2025 5:23 AM EDT documented in this encounter Functional Status * Question Answer Date of Assessment Author Precautions Fall risk 05/21/2025 8:00 AM EDT lKever toro, Jacquelin Miller LPN * AUDIT-C Score Answer Date of [...] 8:00 AM EDT Jacquelin Domínguez LPN * Calculated C-SSRS Risk Score (Lifetime/Recent) Answer Date of Assessment Author No Risk Indicated 05/21/2025 8:00 AM EDT Jacquelin Serrano LPN * Question Answer Date of Assessment Author [...] 8:00 AM EDT Jacquelin Domínguez LPN * Question Answer Entry Date Author Scale Used Hernando 05/20/2025 6:07 AM EDT Debra Cheng RN documented in this encounter Medications at Time of Discharge acetaminophen (Tylenol) 325 MG capsule Take 2 capsules (650 mg) by mouth every 6 (six) hours if needed for mild pain. 30 capsule 1 07/18/2024 Blood Glucose Monitoring Suppl ([employer]Touch Verio Reflect) w/Device kit 04/14/2024 busPIRone (Buspar) 5 MG tablet Take 1 tablet (5 mg) by mouth every night. Takes at 8PM 30 tablet 08/16/2024 cholecalciferol (Vitamin D-3) 50 MCG (2000 UT) capsule 10/25/2024 cholecalciferol (Vitamin D3) 25 MCG (1000 UT) tablet as needed. 11/07/2024 fludrocortisone (Florinef) 0.1 MG tabletIndications:P helen's disease Take 1 tablet by mouth daily. 30 tablet 3 11/16/2024 fluticasone (Flonase) 50 MCG/ACT nasal spray Administer 1 spray into each nostril daily. 12/08/2024 Lancets (OneTouch Delica Plus [id number]) misc 04/14/2024 levothyroxine (Synthroid, Levoxyl) 25 MCG tablet Take 1 tablet by mouth daily. 02/10/2025 meclizine (Antivert) 25 MG tablet Take 0.5 tablets by mouth 3 times a day as needed for dizziness (Dizziness). 90 tablet 3 05/21/2025 midodrine (Proamatine) 5 MG tablet Take 1 tablet by mouth 3 times a day as needed (hypotension). 90 tablet 3 05/21/2025 NON FORMULARY Take 1,000 mg by mouth daily. Sodium chloride tablets 1000 mg once daily by mouth ondansetron ODT (Zofran-ODT) 4 MG disintegrating tablet Dissolve 2 tablets on the tongue every 8 hours as needed for nausea or vomiting. 20 tablet 5 12/30/2024 OneTouch Verio test strip 1 each by Other route as needed. 04/14/2024 propranolol (Inderal) 20 MG tabletIndications:P helen's disease Take 1 tablet by mouth 3 (three) times a day. 90 tablet 3 11/16/2024 pyridostigmine (Mestinon) 30 MG tablet Take 1 tablet by mouth 2 times a day. 60 tablet 1 05/15/2025 simethicone (Mylicon) 80 MG chewable tablet Chew 1 tablet every 6 hours as needed. sodium chloride 1 g tablet Take 1 tablet by mouth daily. 11/07/2024 Ventolin HFA 108 (90 Base) MCG/ACT inhaler Inhale 2 puffs 1 time as needed for shortness of breath. 10/05/2024 documented as of this encounter Miscellaneous Notes * Discharge Summary - Harley Us MD - 05/21/2025 3:42 PM EDT Hospitalization Admit Date/Time: 05/19/2025 11:36 PM Admitting Attending: Toi Tolentino Discharge Date: 05/21/2025 Discharge Attending Physician: Lorenzo Aguillon MD PCP name and Address: Rey Wyatt MD [address] / [facility] [id number] Referring provider name and address: Camryn Sun, DO [address] [place] [address] Chief Concern, Brief History of Present Illness, and Hospital Course Francy Delarosa is a 25 y.o. year-old female who has a past medical history of Abnormal ECG, Anemia,Anxiety, Depression, Eczema, Food intolerance, GERD (gastroesophageal reflux disease), Gilbert syndrome, Headache, tension-type, Hypertension, Hyperthyroidism, Insomnia, Liver disease, Migraine, Peptic ulceration, POTS (postural orthostatic tachycardia syndrome), and Syncope who presents to [facility] ED as a transfer form [facility] due to Increased dizziness worse with position change. Neurology was consulted and CTA Head and Neck were preformed, as well as, MRI Head and Orbits which showered no acute intracranial abnormalities or any signs of stenosis. The patient also had a negative HINTS exam and a normal neurological exam preformed by neurologist. The patients symptoms were found to be caused by POTS. The patient was given meclizine, which improved hr symptomsat 25 mg, but caused worsening dizzines after multiple doses. The dose of Meclizine was decreased and she was given an outpatient referral to ENT and PT for Vestibular Rehab. #Pre-Syncope + Vertigo ISO POTS (Postural Orthostatic Tachycardia Syndrome) -Unremarkable ECHO in 01/2024, Tilt Table Testing on 03/2025 confirming POTS -CTA H/N: No signs of stenosis or aneurysm -MRI Head and Orbits: No acute intracranial abnormalities -Neurology consulted: Benign Neuro exam and negative HINTS exam PLAN: -Ensure daily fluid intake of 2-3L, salt intake 10-12g/daily -continue daily salt tablet -Continue use of compression socks -Continue Fludrocortisone 0.1 mg daily and Propanolol 20 mg BID -Continue Midodrine 5 mg TID, can use PRN for Hypotension -continue Meclizine 12.5 mg TID PRN for vertigo -follow up with ENT, referral provided at D/c -complete outpatient PT for vestibular rehab + incremental exercise program #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 busPIRone 5 MG tablet Commonly known as: Buspar Take 1 tablet (5 mg) by mouth every night. Takes at 8PM cholecalciferol 50 MCG (2000 UT) capsule Commonly known as: Vitamin D-3 fludrocortisone 0.1 MG tablet Commonly known as: Florinef Take 1 tablet by mouth daily. fluticasone 50 MCG/ACT nasal spray Commonly known as: Flonase Administer 1 spray into each nostril daily. levothyroxine 25 MCG tablet Commonly known as: Synthroid, Levoxyl Take 1 tablet by mouth daily. meclizine 25 MG tablet Commonly known as: Antivert Take 0.5 tablets by mouth 3 times a day as needed for dizziness (Dizziness). midodrine 5 MG tablet Commonly known as: Proamatine Take 1 tablet by mouth 3 times a day as needed (hypotension). NON FORMULARY Take 1,000 mg by mouth daily. Sodium chloride tablets 1000 mg once daily by mouth ondansetron ODT 4 MG disintegrating tablet Commonly known as: Zofran-ODT Dissolve 2 tablets on the tongue every 8 hours as needed for nausea or vomiting. OneTouch Delica Plus [id number] [facility] OneTouch Verio Reflect w/Device kit OneTouch Verio test strip Generic drug: glucose blood 1 each by Other route as needed. propranolol 20 MG tablet Commonly known as: Inderal Take 1 tablet by mouth 3 (three) times a day. pyridostigmine 30 MG tablet Commonly known as: Mestinon Take 1 tablet by mouth 2 times a day. simethicone 80 MG chewable tablet Commonly known as: Mylicon Chew 1 tablet every 6 hours as needed. Tylenol 325 MG capsule Generic drug: acetaminophen Take 2 capsules (650 mg) by mouth every 6 (six) hours if needed for mild pain. Ventolin HFA 108 (90 Base) MCG/ACT inhaler Generic drug: albuterol Inhale 2 puffs 1 time as needed for shortness of breath. Where to Get Your Medications These medications were sent to [facility] - [place], [place] - [address] [facility] [id number] [id number], [facility] [id number] meclizine 25 MG tablet midodrine 5 MG tablet Discharge Diagnosis Medical Problems Active and Resolved Hospital Problems Hospital Pre-syncope Postural orthostatic tachycardia syndrome (POTS) Depression Anxiety Gastroesophageal reflux disease Gilbert's syndrome * (Principal) Dizziness Post Discharge Instructions You should take your medications as seen above and you should follow up with ENT and PT. Outpatient Follow-Up Future Appointments Date Time Provider Department Center 06/09/2025 7:30 AM [facility]io Tam [facility] 06/15/2025 12:30 PM Kendy Sanchez [facility]N [facility] 06/19/2025 8:00 AM Courtney Torres MD [facility] 06/19/2025 12:30 PM EEG UNIT [facility] 06/21/2025 12:30 PM EEG UNIT 3 NEUROPHYS [facility] Test Results Pending At Discharge: None Pertinent Physical Exam At Time of Discharge Physical Exam Constitutional: Appearance: Normal appearance. Cardiovascular: Rate and Rhythm: Normal rate. Heart sounds: No murmur heard. Pulmonary: Effort: Pulmonary effort is normal. No respiratory distress. Breath sounds: Normal breath sounds. Musculoskeletal: Right lower leg: No edema. Left lower leg: No edema. Skin: Coloration: Skin is not jaundiced. Neurological: General: No focal deficit present. Mental Status: She is alert and oriented to person, place, and time. Psychiatric: Mood and Affect: Mood normal. Behavior: Behavior normal. Discharge Disposition/Condition Disposition: Home Condition: Stable (s/sx potential problems absent or manageable) I spent >30 minutes of patient care and instruction time in preparation for this discharge. Harley Us MD Internal Medicine, PGY-2 Cosigned by Lorenzo Aguillon MD at 05/23/2025 8:03 AM EDT Associated attestation - Lorenzo Aguillon MD - 05/23/2025 8:03 AM EDT I saw and evaluated the patient with the resident. I discussed the case with the resident and agreewith the findings and plan as documented. Regarding pt's episode of dizziness that led to admission, Neurological evaluation and ONLINE CONTENT COORDINATOR imaging (CTA and MR) did not identify a new, acute process. Pt's presentation is not consistent with an acute infectious process, structural processes were ruled out, and pt did not demonstrate any findings to suggest seizure/seizure-like episode. Though she does have documented/confirmed POTS diagnosis, pt's vitals during her session with PT/OT this admission did not actually demonstrate orthostatic vitals changes affecting either her bp or her heart rate even though she did experience symptoms during almost every/all position changes. Neither, however, was exam positive for nystagmus or other evidence for active vestibular disease. All of these put together, it is very likely that pt's presenting symptoms are related, at least in some manner, to her POTS/existing autonomic dysregulation. We provided as-needed medications (meclizine for nausea/dizziness/vertigo and midodrine for periods of lower bp/hypotension she describes as experiencing prior to admission). Of note, pt did experience rather significant improvement in her dizziness/vertiginous symptoms after receiving benzodiazepine therapy. Though this class can certainly be indicated in the treatment of acute vertigo, pt did express a considerable degree of anxiety/anxiousness-related symptoms. I have concerns regarding being able to discontinue a benzodiazepine medication if/once started so would instead recommend use of other strategies for treatment of anxiety and avoiding dependence-prone medications of this class. Lorenzo Aguillon MD [facility] Pager: [phone] * Hospital Course - Harley Us MD - 05/21/2025 3:12 PM EDT Francy Delarosa is a 25 y.o. year-old female who has a past medical history of Abnormal ECG, Anemia,Anxiety, Depression, Eczema, Food intolerance, GERD (gastroesophageal reflux disease), Gilbert syndrome, Headache, tension-type, Hypertension, Hyperthyroidism, Insomnia, Liver disease, Migraine, Peptic ulceration, POTS (postural orthostatic tachycardia syndrome), and Syncope who presents to [facility] ED as a transfer form [facility] due to Increased dizziness worse with position change. Neurology was consulted and CTA Head and Neck were preformed, as well as, MRI Head and Orbits which showered no acute intracranial abnormalities or any signs of stenosis. The patient also had a negative HINTS exam and a normal neurological exam preformed by neurologist. The patients symptoms were found to be caused by POTS. The patient was given meclizine, which improved hr symptomsat 25 mg, but caused worsening dizzines after multiple doses. The dose of Meclizine was decreased and she was given an outpatient referral to ENT and PT for Vestibular Rehab. #Pre-Syncope + Vertigo ISO POTS (Postural Orthostatic Tachycardia Syndrome) -Unremarkable ECHO in 01/2024, Tilt Table Testing on 03/2025 confirming POTS -CTA H/N: No signs of stenosis or aneurysm -MRI Head and Orbits: No acute intracranial abnormalities -Neurology consulted: Benign Neuro exam and negative HINTS exam PLAN: -Ensure daily fluid intake of 2-3L, salt intake 10-12g/daily -continue daily salt tablet -Continue use of compression socks -Continue Fludrocortisone 0.1 mg daily and Propanolol 20 mg BID -Continue Midodrine 5 mg TID, can use PRN for Hypotension -continue Meclizine 12.5 mg TID PRN for vertigo -follow up with ENT, referral provided at D/c -complete outpatient PT for vestibular rehab + incremental exercise program #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- Continue home levothyroxine #Anxiety and Depression- Continue home buspar * Care Plan - Jacquelin Serrano LPN - 05/21/2025 3:00 PM EDT Problem: Adult Inpatient Plan of Care Goal: Plan of Care Review 05/21/20251537 by Jacquelin Serrano LPN Flowsheets (Taken 05/21/2025 153) Progress: improving Plan of Care Reviewed With: patient 05/21/2025 1536 by Jacquelin Serrano LPN Flowsheets (Taken 05/21/2025 153) Progress: improving Plan of Care Reviewed With: patient Goal: Patient-Specific Goal (Individualized) 05/21/20251537 [facility] Flowsheets (Taken 05/21/2025 0800) Patient/Family-Specific Goals (Include Timeframe): pt will remain free from injury this shift Individualized Care Needs: safety Anxieties, Fears or Concerns: none stated 05/21/20251535 by Jacquelin Serrano LPN Flowsheets (Taken 05/21/2025 0800) Patient/Family-Specific Goals (Include Timeframe): pt will remain free from injury this shift Individualized Care Needs: safety Anxieties, Fears or Concerns: none stated Goal: Absence of Hospital-Acquired Illness or Injury Intervention: Identify and Manage Fall Risk 05/21/20251537 by Jacquelin Serrano LPN Flowsheets (Taken 05/21/2025 153) Safety Promotion/Fall Prevention: safety round/check completed 05/21/20251535 by Jacquelin Serrano LPN Flowsheets (Taken 05/21/2025 153) Safety Promotion/Fall Prevention: safety round/check completed Intervention: Prevent Skin Injury 05/21/20251537 by Jacquelin Serrano LPN Flowsheets (Taken 05/21/2025 153) Body Position: weight shifting Skin Protection: incontinence pads utilized 05/21/20251535 by [facility] L[facility] Flowsheets (Taken 05/21/2025 153) Body Position: weight shifting Skin Protection: incontinence pads utilized Intervention: Prevent and Manage VTE (Venous Thromboembolism) Risk 05/21/20251537 by Jacquelin Serrano LPN Flowsheets (Taken 05/21/2025 153) VTE Prevention/Management: education provided 05/21/20251535 by Jacquelin Serrano LPN Flowsheets (Taken 05/21/2025 153) VTE Prevention/Management: education provided Intervention: Prevent Infection 05/21/20251537 by Jacquelin Serrano LPN Flowsheets (Taken 05/21/2025 153) Infection Prevention: hand hygiene promoted 05/21/20251535 by Jacquelin Serrano LPN Flowsheets (Taken 05/21/2025 153) Infection Prevention: hand hygiene promoted Goal: Optimal Comfort and Wellbeing Intervention: Monitor Pain and Promote Comfort 05/21/20251537 by Jacquelin Serrano LPN Flowsheets (Taken 05/21/2025 153) Pain Management Interventions: rest 05/21/20251535 by Jacquelin Serrano LPN Flowsheets (Taken 05/21/2025 153) Pain Management Interventions: rest Intervention: Provide Person-Centered Care 05/21/20251537 by Jacquelin Serrano LPN Flowsheets (Taken 05/21/20251537) Trust Relationship/Rapport: care explained choices provided emotional support provided empathic listening provided questions answered questions encouraged reassurance provided thoughts/feelings acknowledged 05/21/20251535 by Jacquelin Serrano LPN Flowsheets (Taken 05/21/20251535) Trust Relationship/Rapport: care explained choices provided emotional support provided empathic listening provided questions answered questions encouraged thoughts/feelings acknowledged reassurance provided Problem: Fall Injury Risk Goal: Absence of Fall and Fall-Related Injury Intervention: Identify and Manage Contributors Flowsheets (Taken 05/21/20251537) Medication Review/Management: medications reviewed Self-Care Promotion: meal set-up provided Intervention: Promote Injury-Free Environment Flowsheets (Taken 05/21/20251537) Safety Promotion/Fall Prevention: safety round/check completed * Progress Notes - Radha Pierre APRN - 05/21/2025 2:11 PM EDT Subjective No acute events overnight. Patient is seen and examined while reclining in bed. Discussed imaging findings. Patient reports improvement of vertiginous symptoms with meclizine however, reported increased postural dizziness. She also reports complete resolution of dizziness, both postural and rotational, with utilization of diazepam. Discussed possible treatment option which have been conveyed to pr imary team. Review of Systems 14-point ROS negative unless mentioned above. Current Scheduled Medications[1] Current Continuous Medications[2] Current PRN Medications[3] Objective Visit Vitals BP 114/73 Pulse 74 Temp 36.6 ??C (97.8 ??F) Resp 18 Ht 1.676 m (5' 6 ) Wt 85.7 kg (188 lb 15 oz) SpO2 100% BMI 30.49 kg/m?? OB Status Having periods Smoking Status Former BSA 2 m?? I/O: I/O last 3 completed shifts: In: 825 (9.6 mL/kg) [P.O.:825] Out: - (0 mL/kg) Weight: 85.7 kg No intake/output data recorded. Net IO Since Admission: 825 mL [05/21/25 1412] Physical Exam: GEN: reclining in bed; in NAD HENT: normocephalic, atraumatic CV: no LE edema PULM: airways patent, non-labored breathing EXT: no clubbing, cyanosis, or erythema SKIN: no rashes or lesions Psychiatric: appropriate mood and affect NEURO: Mental Status: A&O x 3, interactive, able to follow commands Speech: Intact Articulation CN 2-12: No appreciable CN deficits Motor: antigravity throughout Sensory: intact light touch throughout Coordination: no ataxia with [id number]-[id number]-eykf testing Gait/Station: deferred Cortical: No Extinction Labs: @Laboratory Testing (all labs personally reviewed and interpreted): Results from last 7 days Lab Units 05/20/25 0526 WBC 10*3/uL 6.99 HEMOGLOBIN g/dL 13.2 HEMATOCRIT % 39.8 PLATELETS 10*3/uL 184 Results from last 7 days Lab Units 05/20/25 0526 SODIUM mmol/L 138 POTASSIUM mmol/L 3.9 CHLORIDE mmol/L 106 CO2 mmol/L 19* BUN mg/dL 12 CREATININE mg/dL 0.69 CALCIUM mg/dL 9.1 BILIRUBIN TOTAL mg/dL 1.1 ALKALINE PHOSPHATASE U/L 56 ALT U/L 13 AST U/L 19 GLUCOSE mg/dL 85 Results from last 7 days Lab Units 05/20/25 0526 MAGNESIUM mg/dL 2.2 Troponins: No results found for: TROPONINT Assessment/Plan: Francy Delarosa is a 25 y.o. female whose medical problems include Anemia, Anxiety, Depression, Eczema, Food intolerance, GERD (gastroesophageal reflux disease), Gilbert syndrome, Tension-type headache, Hypertension, Hyperthyroidism, Insomnia, Liver disease, Migraine, Peptic ulceration, POTS (postural orthostatic tachycardia syndrome), and Syncope who was transferred to [facility] from [facility] due to dizziness. General Neurology was consulted for further evaluation of patient's dizziness. #Vertigo, new onset #POTS #Neck pain - Reports 2 day history of intermittent vertigo elicited by cwvq-ce-elst head movement and akes-zg-lvxn movement of body. - Reports vertiginous symptoms are different from dizziness she experiences due to POTS - Patient also reported event in which she rapidly turned her head to the side resulting in poppingsensation in her neck as well as, sharp pain. Continues to report intermittent neck pain since thisincident - OSH CT head showed no acute intracranial abnormality - MR head/orbits: MRI of the brain with contrast within normal limits. No definite mass lesions or areas of abnormal signal or enhancement within the orbits. - No focal deficits on exam - HINTS exam performed and negative for corrective saccade, nystagmus, or skew deviation - Vertiginous symptoms were reproducible when patient turned from [id number]-bgmi in bed - 05/21, CTA H/N showed no evidence of intracranial, cervical carotid, or vertebral arterial injuryor stenosis - Patient reports meclizine has reduced her vertiginous symptoms however, has resulted in an increase of her postural symptoms - Reported complete resolution of all dizziness (rotational and postural) with administration of diazepam Recommendations: - Consider tapering meclizine 12.5 mg TID for treatment of vertigo while reducing risk of adverse effects given concomitant POTS - Can consider initiation of diazepam 2-5 mg TID PRN for treatment of vertigo however, if utilized recommend inpatient ENT evaluation as this used for management of acute vertigo - If forgoing use of diazepam, recommend outpatient ENT referral for further evaluation and Libia-Hallpike - If opting for initiation of diazepam, discontinue meclizine to reduce risk of side effects - Agree with recommendation for vestibular PT - Rest of care per Primary team - No further recommendations per Neurology at this time Thank you for the opportunity to be involved in this patient's care. Case was discussed with Dr. Choudhary who agrees with this plan. These recommendations have been communicated with the primary team. Please contact the [employer] plant operations manager in [place] for any questions or concerns. Radha Pierre APRN [employer] Preferred Dictation software disclaimer: Parts of this note was generated using voice dictation software. Although proofread, there may be spelling errors, changes in dictated words, and words inserted which may have been misinterpreted by voice dictation software. Meaning of words may require interpretationin the appropriate context of the sentence and clinical situation. [1] busPIRone, 5 mg, Oral, Nightly fludrocortisone, 0.1 mg, Oral, Daily heparin (porcine), 5,000 Units, Subcutaneous, q8h SALENA levothyroxine, 25 mcg, Oral, Daily meclizine, 25 mg, Oral, TID midodrine, 5 mg, Oral, TID propranolol, 20 mg, Oral, BID Insert peripheral IV, , , Once AND Saline lock IV, , , Once AND sodium chloride, 10 mL, Intravenous, q12h AND sodium chloride, 10 mL, Intravenous, PRN sodium chloride, 1 g, Oral, Daily with lunch [2] [3] acetaminophen, 650 mg, Oral, q6h PRN melatonin, 3 mg, Oral, Nightly PRN ondansetron ODT, 4 mg, Oral, q6h PRN OR ondansetron, 4 mg, Intravenous, q6h PRN OR ondansetron, 4 mg, Oral, q6h PRN senna, 2 tablet, Oral, Nightly PRN Insert peripheral IV, , , Once AND Saline lock IV, , , Once AND sodium chloride, 10 mL, Intravenous, q12h AND sodium chloride, 10 mL, Intravenous, PRN Cosigned by Kamilah Choudhary MD at 05/23/2025 8:36 AM EDT Associated attestation - Kamilah Choudhary MD - 05/23/2025 8:36 AM EDT The patient was seen only by Advanced Practice Provider ([facility]), and care was reviewed with me. * Care Plan - Debra Lopez RN - 05/20/2025 11:06 PM EDT Problem: Fall Injury Risk Goal: Absence of Fall and Fall-Related Injury Outcome: Ongoing, Progressing Intervention: Identify and Manage Contributors Flowsheets (Taken 05/20/2025 2306) Medication Review/Management: medications reviewed Self-Care Promotion: independence encouraged BADL personal objects within reach adaptive equipment use encouraged Intervention: Promote Injury-Free Environment Flowsheets (Taken 05/20/20251999) Safety Promotion/Fall Prevention: safety round/check completed Problem: Adult Inpatient Plan of Care Goal: Patient-Specific Goal (Individualized) Flowsheets (Taken 05/20/20251999) Patient/Family-Specific Goals (Include Timeframe): patient will remain free from falls this shift Individualized Care Needs: safety Anxieties, Fears or Concerns: none stated * Care Plan - Jacquelin Serrano LPN - 05/20/2025 4:58 PM EDT Problem: Adult Inpatient Plan of Care Goal: Plan of Care Review Flowsheets (Taken 05/20/20251652) Progress: improving Plan of Care Reviewed With: patient Goal: Patient-Specific Goal (Individualized) Flowsheets (Taken 05/20/2025 08) Patient/Family-Specific Goals (Include Timeframe): pt will remain free from injury this shift Individualized Care Needs: safety Anxieties, Fears or Concerns: none stated Goal: Absence of Hospital-Acquired Illness or Injury Intervention: Identify and Manage Fall Risk Flowsheets (Taken 05/20/20251652) Safety Promotion/Fall Prevention: safety round/check completed Intervention: Prevent Skin Injury Flowsheets Taken 05/20/20251652 Skin Protection: incontinence pads utilized Taken 05/20/2025 0800 Body Position: weight shifting Intervention: Prevent and Manage VTE (Venous Thromboembolism) Risk Flowsheets (Taken 05/20/20251652) VTE Prevention/Management: education provided Intervention: Prevent Infection Flowsheets (Taken 05/20/20251652) Infection Prevention: hand hygiene promoted Goal: Optimal Comfort and Wellbeing Intervention: Monitor Pain and Promote Comfort Flowsheets (Taken 05/20/20251652) Pain Management Interventions: rest Intervention: Provide Person-Centered Care Flowsheets (Taken 05/20/20251652) Trust Relationship/Rapport: care explained choices provided emotional support provided empathic listening provided questions answered questions encouraged reassurance provided thoughts/feelings acknowledged Problem: Fall Injury Risk Goal: Absence of Fall and Fall-Related Injury Intervention: Identify and Manage Contributors Flowsheets (Taken 05/20/20251652) Medication Review/Management: medications reviewed Self-Care Promotion: meal set-up provided Intervention: Promote Injury-Free Environment Flowsheets (Taken 05/20/20251652) Safety Promotion/Fall Prevention: safety round/check completed * Consults - Radha Pierre APRN - 05/20/2025 4:00 PM EDTAssociated Order(s): IP CONSULT TO NEUROLOGY Neurology Consult Note Date of Service: 05/20/25 Patient Name: Francy Delarosa Patient Consulting physician: Jaren Holguin DO Reason for consult: dizziness HPI: Francy Delarosa is a 25 y.o. female whose medical problems include Anemia, Anxiety, Depression, Eczema, Food intolerance, GERD (gastroesophageal reflux disease), Gilbert syndrome, Tension-type headache, Hypertension, Hyperthyroidism, Insomnia, Liver disease, Migraine, Peptic ulceration, POTS (postural orthostatic tachycardia syndrome), and Syncope who was transferred to [facility] from [facility] due to dizziness. General Neurology was consulted for further evaluation of patient's dizziness. Per patient, her dizziness, which she describes as room spinning, started approximately 2 days ago and is intermittent however, is occurring approximately 30-40 times per day. She reports that she normally experiences dizziness due to her POTS however, dizziness associated with her POTS typically results in floaty head feeling with postural position changes which can sometimes result in vision changes to includes grainy vision that can progress to vision going black . The current dizzinessshe is feeling is different from her POTS related symptoms in that it elicits a spinning sensation that becomes worse when she turns her head from lenu-ma-hsyn or rolls from sxfw-ag-jhuq in bed. It is typically alleviated if she lays flat. She reports a history of headaches prior to onset of her symptoms and denies any changes to her headaches surrounding the onset of her vertigo. She received meclizine at OSH and today at 1352 which she reports improved her symptoms. Of note, she reports rapidly turning her head to the side approximately 1 month ago which resulted in a popping sensation in her neck and sharp pain. Since then, she has intermittently had right-sided neck pain without any associated symptoms. She frequently experiences falls related to her POTS however, has not noticed an increase in falls since onset of her vertigo. ROS: 14-point ROS negative except as mentioned in HPI. PMed/SurgHx: Past Medical History[1] Surgical History[2] Family Hx: Family History[3] Outpatient Medications: Current Outpatient Medications Medication Instructions Blood Glucose Monitoring Suppl (Last Sizeuch Verio Reflect) w/Device kit busPIRone (BUSPAR) 5 mg, Oral, Nightly, Takes at 8PM cholecalciferol (Vitamin D-3) 50 MCG (1999 UT) capsule fludrocortisone (FLORINEF) 0.1 mg, Oral, Daily fluticasone (Flonase) 50 MCG/ACT nasal spray 1 spray, Each Nostril, Daily Lancets (GreenPeak TechnologiesTouch Delica Plus [id number]) misc levothyroxine (SYNTHROID, LEVOXYL) 25 mcg, Daily midodrine (PROAMATINE) 5 mg, Oral, 3 times daily, 3 times daily during daytime hours when patient is upright. Avoid administering <4 hours before bedtime to minimize risk of supine hypertension . NON FORMULARY 1,000 mg, Daily ondansetron ODT (ZOFRAN-ODT) 8 mg, Oral, Every 8 hours PRN OneTouch Verio test strip 1 each, As needed propranolol (INDERAL) 20 mg, Oral, 3 times daily pyridostigmine (MESTINON) 30 mg, Oral, 2 times daily simethicone (MYLICON) 80 mg, Oral, Every 6 hours PRN Tylenol 650 mg, Oral, Every 6 hours PRN Ventolin HFA 108 (90 Base) MCG/ACT inhaler Inhale 2 puffs 1 time as needed for shortness of breath. Inpatient Medications: Current Medications[4] Current Continuous Medications[5] Current PRN Medications[6] Allergies: Allergies[7] Vital Signs: Visit Vitals BP 123/78 Pulse 84 Temp 36.8 ??C (98.2 ??F) Ht 1.676 m (5' 6 ) Wt 72.6 kg (160 lb 0.9 oz) SpO2 99% BMI 25.83 kg/m?? Physical Examination: GEN: in no acute distress, well-developed, well nourished appearing HEENT: normocephalic, atraumatic, PERRL, non-erythematous oropharynx CV: no edema Respiratory: airways patent, non-labored breathing MSK: neck is supple, no nuchal rigidity, no clubbing, cyanosis, edema or erythema SKIN: no rashes or lesions PSYCH: mood and affect appropriate NEURO: Mental Status: A&O x 3, interactive, good attention and concentration Speech: Intact Articulation CN 2-12: II - PERRL, VFs are full to confrontation III, IV, - EOMI V - Facial sensation intact VII - Brow raise and smile symmetrical VIII - Auditory acuity grossly intact IX, X - Palate elevation symmetric, uvula midline XI - SCM and Trapezius strength intact XII - Tongue protrudes midline Motor: Normal bulk and tone. No involuntary movements. Strength is 5/5 in all 4 extremities, proximal equals distal. Sensory: Normal to light touch in all 4 extremities and symmetric. Reflexes: 3+ throughout; plantars downgoing b/l Coordination: no ataxia with ajvogb-nn-bamw and gado-le-qxjd testing Gait/Station: deferred Cortical: No Extinction or neglect Labs: Labs in last 18 hours CBC WBC 6.99 Hb 13.2 Plt 184 Hct 39.8 ANC ?? INR ??, PTT ??, Anti-Xa ?? BMP Na 138 Cl 106 BUN 12 Glu 85 K 3.9 Co2 19 (L) Cr 0.69 Ca 9.1 iCa ?? Mg 2.2, Phos 3.4 Lactate ?? LFT AST 19 AlkPhos 56 T Prot 7.2 ALK 13 Bili 1.1 Alb ?? D.Bili ?? Neuroimaging: Personally reviewed and interpreted MR head/orbits showed no acute abnormalities intracranially or within orbits OSH CT head showed no acute intracranial abnormality Assessment/Plan: Francy Delarosa is a 25 y.o. female whose medical problems include Anemia, Anxiety, Depression, Eczema, Food intolerance, GERD (gastroesophageal reflux disease), Gilbert syndrome, Tension-type headache, Hypertension, Hyperthyroidism, Insomnia, Liver disease, Migraine, Peptic ulceration, POTS (postural orthostatic tachycardia syndrome), and Syncope who was transferred to [facility] from [facility] due to dizziness. General Neurology was consulted for further evaluation of patient's dizziness. #Vertigo, new onset #POTS #Neck pain - Reports 2 day history of intermittent vertigo elicited by gwqw-un-ksqj head movement and btph-io-ajyi movement of body. - Reports vertiginous symptoms are different from dizziness she experiences due to POTS - Patient also reported event in which she rapidly turned her head to the side resulting in poppingsensation in her neck as well as, sharp pain. Continues to report intermittent neck pain since thisincident - OSH CT head showed no acute intracranial abnormality - MR head/orbits: MRI of the brain with contrast within normal limits. No definite mass lesions or areas of abnormal signal or enhancement within the orbits. - No focal deficits on exam - HINTS exam performed and negative for corrective saccade, nystagmus, or skew deviation - Vertiginous symptoms were reproducible when patient turned from hrjj-me-xdxq in bed Recommendations: - CTA head/neck to evaluate for arterial injury - Recommend meclizine 25 mg TID for treatment of vertigo - Recommend outpatient ENT referral for further evaluation and Libia-Hallpike - Agree with recommendation for vestibular PT - Rest of care per Primary team Thank you for the opportunity to be involved in this patient's care. Case was discussed with Dr. Choudhary who agrees with this plan. These recommendations have been communicated with the primary team. Please contact the [employer] hydrogen plant operations manager in [place] for any questions or concerns. Radha Pierre APRN [employer] Preferred Dictation software disclaimer: Parts of this note was generated using voice dictation software. Although proofread, there may be spelling errors, changes in dictated words, and words inserted which may have been misinterpreted by voice dictation software. Meaning of words may require interpretationin the appropriate context of the sentence and clinical situation. [1] Past Medical History: Diagnosis Date Abnormal ECG Anemia Anxiety Depression Eczema Food intolerance GERD (gastroesophageal reflux disease) Gilbert syndrome 2019 Headache, tension-type Hypertension Hyperthyroidism auto immune Insomnia Liver disease Migraine Peptic ulceration POTS (postural orthostatic tachycardia syndrome) 01/2024 Severe malnutrition (CMS/HCC) 03/14/2024 ~16% wt loss x 4m; weight loss in setting of POTS, decreased oral intake, Syncope [2] Past Surgical History: Procedure Laterality Date [...] Neg Hx Malig Hyperthermia Neg Hx [4] Current Facility-Administered Medications: acetaminophen (Tylenol) tablet 650 mg, 650 mg, Oral, q6h PRN, Alfa Maria APRN busPIRone (Buspar) tablet 5 mg, 5 mg, Oral, Nightly, Alfa Maria APRN fludrocortisone (Florinef) tablet 0.1 mg, 0.1 mg, Oral, Daily, Alfa Maria APRN, 0.1 mg at 05/20/25 0918 heparin (porcine) injection 5,000 Units, 5,000 Units, Subcutaneous, q8h SALENA, Alfa Maria TEAM GUIDE,5,000 Units at 05/20/25 0616 levothyroxine (Synthroid, Levoxyl) tablet 25 mcg, 25 mcg, Oral, Daily, Alfa Maria TEAM GUIDE, 25 mcg at 05/20/25 0546 meclizine (Antivert) tablet 25 mg, 25 mg, Oral, TID PRN, Arvin Hancock MD, 25 mg at 05/20/25 1352 melatonin tablet 3 mg, 3 mg, Oral, Nightly PRN, Alfa Maria APRN midodrine (Proamatine) tablet 5 mg, 5 mg, Oral, TID, Alfa Maria APRN ondansetron ODT (Zofran-ODT) disintegrating tablet 4 mg, 4 mg, Oral, q6h PRN OR ondansetron (Zofran) injection 4 mg, 4 mg, Intravenous, q6h PRN OR ondansetron (Zofran) 4 MG/5ML solution 4 mg,4 mg, Oral, q6h PRN, Alfa Maria APRN propranolol (Inderal) tablet 20 mg, 20 mg, Oral, BID, Alfa Maria APRN, 20 mg at 05/20/25 0918 senna (Senokot) tablet 17.2 mg, 2 tablet, Oral, Nightly PRN, Alfa Maria APRN Insert peripheral IV, , , Once AND Saline lock IV, , , Once AND sodium chloride 0.9 % flush10 mL, 10 mL, Intravenous, q12h, 10 mL at 05/20/25 1352 AND sodium chloride 0.9 % flush 10 mL, 10 mL, Intravenous, PRN, Alfa Maria APRN sodium chloride tablet 1 g, 1 g, Oral, Daily with lunch, Alfa Maria APRN, 1 g at 05/20/25 1351 [5] [6] PRN medications: acetaminophen, meclizine, melatonin, ondansetron ODT OR ondansetron ORondansetron, senna, Insert peripheral IV AND Saline lock IV AND sodium chloride AND sodium chloride [7] Allergies Allergen Reactions Amoxicillin-Pot Clavulanate Other - please document in the comment field, Rash and Swelling Cinnamon Other - please document in the comment field Mouth swelling Penicillin G Swelling and Other - please document in the comment field Heart palpitations Betamethasone Dipropionate (Augmented) [Betamethasone] Other - please document in the comment field Heart palpitations Atarax [Hydroxyzine] Palpitations Benadryl [Diphenhydramine] Palpitations Iv Contrast Other - please document in the comment field Shaking, chest pain, dizziness, vomiting Penicillins Other - please document in the comment field Heart palpitations Cosigned by Kamilah Choudhary MD at 05/21/2025 8:39 AM EDT Associated attestation - Kamilah Choudhary MD - 05/21/2025 8:39 AM EDT The patient was seen only by Advanced Practice Provider ([facility]), and care was reviewed with me. * Progress Notes - Danny Cueva E - 05/20/2025 12:04 PM EDT Physical Therapy Evaluation Patient Name: Francy Delarosa Today's Date: 05/20/2025 PT Discharge Recommendations: Home with 24 hour assistance, Outpatient PT Equipment Recommended: Patient owns appropriate equipment History Francy Delarosa is 25 y.o. female admitted 05/19/2025 for work-up of Dizziness. Problem List Active Hospital Problems Diagnosis Date Noted Dizziness 05/20/2025 Postural orthostatic tachycardia syndrome (POTS) 02/18/2024 Pre-syncope 02/08/2024 Gilbert's syndrome 09/18/2022 Depression 08/04/2022 Anxiety 08/04/2022 Gastroesophageal reflux disease 08/04/2022 Procedures Past Medical History Patient has a past medical history of Abnormal ECG, Anemia, Anxiety, Depression, Eczema, Food intolerance, GERD (gastroesophageal reflux disease), Gilbert syndrome (2019), Headache, tension-type, Hypertension, Hyperthyroidism, Insomnia, Liver disease, Migraine, Peptic ulceration, POTS (postural orthostatic tachycardia syndrome) (01/2024), Severe malnutrition (CMS/HCC) (03/14/2024), and Syncope. Past Surgical History Patient has a past surgical history that includes Cholecystectomy (07/2023); Tonsillectomy (2001); Hand surgery (07/2022); and Dilation and curettage of uterus. Precautions Medical Precautions: Fall precautions Subjective Patient states I'm willing to try anything to make this dizziness better Participants in Care Family/Caregiver Present: No Solutions Sales Consultant: Not Applicable Presentation Oxygen Therapy: None (Room air) Lines and Tubes: Telemetry, Intravenous access Pre-Session: Supine, Head of bed elevated, Lines intact Post-Session: Supine, RN notified, Call light in reach, Lines intact, Head of bed elevated Post-Session Comments: patient positioned for comfort at close of session with needs met and RN aware Home Living/Set-up Lives With: Spouse, Daughter, Minor Home Type: House (patient and family live on bottom level of home and patient's dad lives on top level) Home Adaptive Equipment: Wheelchair-manual, shower chair, Bedside commode (equipment ordered 2/2 toPOTS diagnosis) Home Layout: Two level (zero entry into personal area of home, flight of stairs to navigate up to dad's apartment area in home) Bathroom: Tub/Shower: Tub/Shower combo Bathroom: Toilet: Standard Prior Level of Function Receives Help From: Spouse (when autoimmune issues or POTS symptoms are present) Level of Mobility: Ambulatory- community Mobility [employer]roleum: Independent gait without device History of Falls: Yes (2/2 syncopal episodes from POTS) ADL Performance: Independent Patient/Family Goals return home Objective Pain No complaints of pain Delirium Screening RASS: Alert and calm Confusion Assessment Method-ICU (CAM-ICU/PCAM-ICU) Feature 3: Altered Level of Consciousness: Negative Cognition Overall Cognitive Status: Within Functional Limits Arousal/Alertness: Appropriate responses to stimuli Mood/Behavior: Alert Orientation Level: Oriented X4 Single Step Commands: Consistently Multi-Step Commands: Consistently Method of Communication: Verbal Right Upper Extremity Examination RUE Assessment: Within Functional Limits Manual Muscle Testing - RUE: Within functional limits Sensation Light Touch: Right Upper Extremity: Intact Left Upper Extremity Examination LUE ROM Assessment LUE Assessment: Within Functional Limits Manual Muscle Testing - LUE Manual Muscle Testing - LUE: Within functional limits Sensation Light Touch: Left Upper Extremity: Intact Right Lower Extremity Examination RLE ROM Assessment RLE Assessment: Within Functional Limits Manual Muscle Testing - RLE Manual Muscle Testing - RLE: Within functional limits Sensation Light Touch: Right Lower Extremity: Intact Left Lower Extremity Examination LLE Assessment: Within Functional Limits Manual Muscle Testing: Within functional limits Sensation Light Touch: Left Lower Extremity: Intact Bed Mobility Bed Mobility Exam: Scooting/Bridging Level of Petroleum: Contact guard Physical/Nonphysical Assist: Verbal Cues, Nonverbal cues (demo/gestures) Assistive Device: Bed rails Bed Mobility Exam: Supine to Sit Level of Petroleum: Contact guard Physical/Nonphysical Assist: Verbal Cues, Nonverbal cues (demo/gestures), HOB elevated Assistive Device: Bed rails Bed Mobility Exam: Sit to Supine Level of Petroleum: Contact guard Physical/Nonphysical Assist: Verbal Cues, Nonverbal cues (demo/gestures), HOB elevated Assistive Device: Bed rails Transfers Transfer Exam: Sit to stand Level of Petroleum: Contact guard Physical/Nonphysical Assist: Verbal Cues, Set-up required, Nonverbal cues (demo/gestures) Assistive Device: Hand held assist Transfer Exam: Stand to Sit Level of Petroleum: Contact guard Physical/Nonphysical Assist: Verbal Cues, Nonverbal cues (demo/gestures), Set-up required Assistive Device: Hand held assist Transfer Exam: Bed to Chair/Chair to Bed Level of Petroleum: Contact guard Physical/Nonphysical Assist: Verbal Cues, Set-up required, Nonverbal cues (demo/gestures) Type of Transfer: Stand-pivot Assistive Device: Hand held assist Ambulation Ambulation Comments: patient not appropriate for distance ambulation today 2/2 constnt dizziness Balance Postural Appearance Posture: Within Functional Limits Static Sitting Balance Static Sitting-Balance Support: Feet supported, No upper extremity support Static Sitting-Level of Assistance: Supervision Dynamic Sitting Balance Dynamic Sitting-Balance Support: Feet supported Level of Assistance: Standby assisst Static Standing Balance Static Standing-Balance Support: Right upper extremity support Dynamic Standing Balance Dynamic Standing-Balance Support: Right upper extremity support Dynamic Standing-Balance: Anterior/Posterior weight shifts Dynamic Standing Level of Assistance: Contact guard Therapeutic Activity (23 minutes) patient performs transitions from sup>sit>standing>SPT>sitting>SPT>sup with significant rest breaks between for assessing HR/BP. Patient complains of increased dizziness with every positional change, but demonstrates no nystagmus with movement. supine: BP 115/71 HR 72, sitting: BP120/83 HR 80, standing: BP 116/83 HR 79. after SPT: BP 117/86 HR 76, SPT back to bed sitting at eob: BP 129/78 HR 98 Standardized Assessments Standardized Assessments Standardized Assessments: AMPAC 6-Clicks Mobility Assessment AMPA 6-Clicks Mobility Assessment Difficulty patient has turning over in bed (including adjusting bedclothes, sheets, and blankets)?:None Difficulty patient has sitting down on and standing up from a chair with arms (wheelchair, bedside commode, etc.)?: A little Difficulty patient has moving from lying on back to sitting on the side of the bed?: A little How much help does the patient need moving to and from a bed to a chair (including a wheelchair)?: A little How much help does the patient need to walk in hospital room?: A lot How much help does the patient need climbing 3-5 steps with a railing?: A lot [facility] 6-Clicks Mobility Assessment Total : 17 No data recorded Assessment Patient is motivated to participate but is limited in ability to ambulate due to increased dizziness with movement. Patient is negative for nystagmus bilaterally with movement but may be a candidate for vestibular therapy if indicated. PT is not at functional baseline and would benefit from additional therapy support to promote independent mobility. PT to continue to follow per POC. Impairments: Impaired gait dynamics/performance, Impaired functional mobility/transfers, Impaired vision/visual processing, Impaired balance, Impaired motor cordination/control Activity Limitations: Inability to ambulate community distances, Inability to ambulate household distances, Inability to complete ADLs independently, Inability to transfer independently Participation Restrictions: Self-care, Community leisure Activity Tolerance: Sitting, Standing, Endurance does not limit participation in activity Evaluation/Treatment Tolerance: Treatment limited secondary to medical complications (Comment) Diagnosis: decreased functional mobility Rehab Potential: Good, to achieve stated therapy goals Barriers to Discharge: Comorbidities Eval Complexity History Profile: 1 - 2 personal factors and/or comorbidities Clinical Presentation: Evolving clinical presentation with changing characteristics Clinical Decision Making: Moderate complexity PT Recommendations Discharge Destination: Home with 24 hour assistance, Outpatient PT Discharge Equipment: Patient owns appropriate equipment Plan Planned PT Interventions Gait training, Motor coordination training, Transfer training, Caregiver training, Functional Mobility, Neuromuscular re-education, Balance training PT Frequency 2 - 5 times per week PT Duration 2 weeks Goals PT GOAL DETAILS Time Frame PT Goal 1: patient to be I with discharge recommendations 2 weeks PT Goal 2: patient to complete bed mobility with independence 2 weeks PT Goal 3: patient to transfer sit<>stand<>SPT with SBA for safety 2 weeks PT Goal 4: patient to ambulate >100' with LRAD and SBA for safety 2 weeks Written by Danny Cueva on 05/20/25 at 12:04 PM. * Care Plan - Debra Lopez RN - 05/20/2025 6:37 AM EDT Problem: Fall Injury Risk Goal: Absence of Fall and Fall-Related Injury Outcome: Ongoing, Progressing Intervention: Identify and Manage Contributors Flowsheets (Taken 05/20/2025 0636) Medication Review/Management: medications reviewed Self-Care Promotion: independence encouraged Intervention: Promote Injury-Free Environment Flowsheets (Taken 05/20/2025 0636) Safety Promotion/Fall Prevention: assistive device/personal items within reach clutter-free environment maintained nonskid shoes/slippers when out of bed safety round/check completed Problem: Adult Inpatient Plan of Care Goal: Patient-Specific Goal (Individualized) Flowsheets (Taken 05/20/2025 0506) Patient/Family-Specific Goals (Include Timeframe): patient will remain free from harm this shift Individualized Care Needs: safety Anxieties, Fears or Concerns: none stated * H&P - Alfa Maria APRN - 05/20/2025 2:44 AM EDTAssociated Order(s): [facility] Images from the original note were not included. Consult to [facility] Consult performed by: Alfa Maria APRN Consult ordered by: Jaren Holguin DO Reason for consult: admission for medical management Hospital Medicine History and Physical Chief Complaint: Increased dizziness worse with position change History of Present Illness: Francy Delarosa is a 25 y.o. year-old female who has a past medical history of Abnormal ECG, Anemia,Anxiety, Depression, Eczema, Food intolerance, GERD (gastroesophageal reflux disease), Gilbert syndrome, Headache, tension-type, Hypertension, Hyperthyroidism, Insomnia, Liver disease, Migraine, Peptic ulceration, POTS (postural orthostatic tachycardia syndrome), and Syncope who presents to [facility] ED as a transfer form [facility] due to Increased dizziness worse with position change. Patient presents with her who helps to provide history. Patient reported thatin the last 24 hours her dizziness has gotten much worse than her baseline. She was at home alone wh en attempting to cotton picker her child and almost passed out on 05/18. She reported feeling dizzy like the room was spinning while she was looking straight ahead. On 05/19 she continued to get dizzy whenever she would sit up or stand up which prompted her to go to [facility] where she was evaluated in the ED. Labs benign and CT head without acute abnormality. Patient was given meclizine and valium with modest improvement in symptoms. Patient was transferred to [facility] for higher level of care and neurology consult. ED consulted neurology who will see the patient in the AM. MRI head pending. Patient reports that she has had some loose stools in the last 24hours, but denies fever, chills, nausea, vomiting, dysuria, SOA,or cough. Patient to be admitted to hospital medicine for further work up and care. Review of Systems: Review of Systems Constitutional: Negative for activity change, appetite change, chills, diaphoresis, fatigue, fever and unexpected weight change. HENT: Negative for congestion, ear pain, hearing loss, rhinorrhea, sore throat, trouble swallowing and voice change. Eyes: Negative for discharge and visual disturbance. Respiratory: Negative for apnea, cough, chest tightness, shortness of breath and wheezing. Cardiovascular: Negative for chest pain and palpitations. Gastrointestinal: Positive for diarrhea. Negative for abdominal distention, abdominal pain, blood in stool, constipation, nausea and vomiting. Endocrine: Negative for cold intolerance, heat intolerance, polydipsia, polyphagia and polyuria. Genitourinary: Negative for difficulty urinating, dysuria, frequency, hematuria and urgency. Musculoskeletal: Negative for arthralgias, joint swelling and myalgias. Skin: Negative for color change, rash and wound. Allergic/Immunologic: Negative for environmental allergies, food allergies and immunocompromised state. Neurological: Positive for dizziness, syncope, weakness (generalized) and light- headedness. Negative for tremors, seizures, numbness and headaches. Hematological: Negative for adenopathy. Does not bruise/bleed easily. Psychiatric/Behavioral: Negative for agitation, confusion, hallucinations and suicidal ideas. The patient is not nervous/anxious. Past Medical History: Past Medical History[1] Surgical History: Surgical History[2] Family History: Family History[3] Social History: Living: [place] [id number] with spouse and 3 children Marital Status: Social History Substance and Sexual Activity Alcohol Use Never Recreational Drug Use: reports no history of drug use. Tobacco Use History[4] Travel History: Relevant Travel History: Travel Screening No screening recorded since 05/18/25 6806 Travel History Travel since 04/20/25 No documented travel since 04/20/25 Allergies: Amoxicillin-pot clavulanate, Cinnamon, Penicillin g, Betamethasone dipropionate (augmented) [betamethasone], Atarax [hydroxyzine], Benadryl [diphenhydramine], Iv contrast, and Penicillins Medications: Current Medications[5] Vital Signs: Visit Vitals BP (!) 144/87 Pulse 76 Temp 36.4 ??C (97.6 ??F) Resp 16 SpO2 96% OB Status Having periods Smoking Status Former Physical Exam: General: well developed, well-nourished female who presents in no apparent distress Physical Exam Vitals reviewed. Constitutional: General: She is not in acute distress. Appearance: Normal appearance. She is not ill-appearing or toxic-appearing. HENT: Head: Normocephalic and atraumatic. Nose: Nose normal. No congestion or rhinorrhea. Mouth/Throat: Mouth: Mucous membranes are moist. Pharynx: Oropharynx is clear. No oropharyngeal exudate or posterior oropharyngeal erythema. Eyes: Extraocular Movements: Extraocular movements intact. Conjunctiva/sclera: Conjunctivae normal. Pupils: Pupils are equal, round, and reactive to light. Neck: Vascular: No carotid bruit. Cardiovascular: Rate and Rhythm: Normal rate and regular rhythm. Heart sounds: No murmur heard. No friction rub. No gallop. Pulmonary: Effort: Pulmonary effort is normal. No respiratory distress. Breath sounds: Normal breath sounds. No stridor. No wheezing, rhonchi or rales. Chest: Chest wall: No tenderness. Abdominal: General: Bowel sounds are normal. There is no distension. Palpations: Abdomen is soft. Tenderness: There is no abdominal tenderness. Musculoskeletal: General: No swelling, tenderness or deformity. Normal range of motion. Cervical back: Normal range of motion and neck supple. No rigidity or tenderness. Lymphadenopathy: Cervical: No cervical adenopathy. Skin: General: Skin is warm. Capillary Refill: Capillary refill takes less than 2 seconds. Findings: No lesion or rash. Neurological: General: No focal deficit present. Mental Status: She is alert and oriented to person, place, and time. Cranial Nerves: No cranial nerve deficit. Sensory: No sensory deficit. Motor: No weakness. Coordination: Coordination normal. Psychiatric: Mood and Affect: Mood normal. Behavior: Behavior normal. Judgment: Judgment normal. Labs (in last 24 hours): CBC: No results found for: WBC , RBC , HGB , HCT , PLT , MCV , MCH , MCHC , RDW , NRBC Differential: No results found for: WBC , NEUTOPHILPCT , LYMPHOPCT , MONOPCT , EOSPCT , ANEUT Coagulation: No results found for: INR , PT , PTT , CLFGN Renal: No results found for: NA , K , CL , CO2 , BUN , CREATININE , GLUCOSE , CALCIUM , ICAS , MG , PHOS Liver: No results found for: AST , ALT , ALPHO , BILITOT , BILIDIR Glucose: No results found for: PGLU No results found for: HGBA1C Microbiology: Results No results found for the last 48 hours. Imaging (in last 24 hours): No imaging this admission to date Assessment and plan: Francy Delarosa is a 25 y.o. year-old female who has a past medical history of Abnormal ECG, Anemia,Anxiety, Depression, Eczema, Food intolerance, GERD (gastroesophageal reflux disease), Gilbert syndrome, Headache, tension-type, Hypertension, Hyperthyroidism, Insomnia, Liver disease, Migraine, Peptic ulceration, POTS (postural orthostatic tachycardia syndrome), and Syncope who presents to [facility] ED as a transfer form [facility] due to Increased dizziness worse with position change. Increased dizziness with presyncope worse with position change complicated by history of POTS - ECHO with normal EF and no significant valvular disease - Tilt table testing 04/12/2025 confirmed POTS - CT Head at OSH negative for acute findings - Continue home fludorocortisone and propranolol - Ensure daily fluid intake of 2-3L, salt intake 10-12g/daily, and use of compression garments (patient reports she is following this at home - Patient reports she is taking 1 tablet of sodium chloride daily at home. Restart and monitor to see if this needs to be increased to meet requirements - Patient is followed by cardiology who recently saw the patient in clinic 05/15 and recommendedstarting midodrine 5mg TID during daylight hours to help with postural hypotension. Patient reportshien has not filled this Rx yet. Start in-patient to monitor - Neurology consulted by ED, formal consult in AM - MRI brain pending - Strict Is & Os with daily weights 2. 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- Continue home levothyroxine #) Anxiety and Depression- Continue home buspar Fluids: PO Electrolytes: Continue to monitor and replace as appropriate Diet: Adult diet Diet texture: Regular DVT prophylaxis: Lovenox prophylaxis Code status: Full Code Alfa Maria [facility] [1] Past Medical History: Diagnosis Date Abnormal ECG Anemia Anxiety Depression Eczema Food intolerance GERD (gastroesophageal reflux disease) Gilbert syndrome 2019 Headache, tension-type Hypertension Hyperthyroidism auto immune Insomnia Liver disease Migraine Peptic ulceration POTS (postural orthostatic tachycardia syndrome) 01/2024 Severe malnutrition (CMS/HCC) 03/14/2024 ~16% wt loss x 4m; weight loss in setting of POTS, decreased oral intake, Syncope [2] Past Surgical History: Procedure Laterality Date CHOLECYSTECTOMY 07/2023 DILATION AND CURETTAGE OF UTERUS HAND SURGERY 07/2022 TONSILLECTOMY 2001 [3] Family History Problem Relation Name Age of Onset Autoimmune disease Mother Avril fagan Depression Mother Avril fagan - 19 Clotting disorder Mother Avril fagan Immunodeficiency Mother Avril fagna Thyroid disease Mother Avril fagan Abnormal EKG Mother Avril fagan Heart failure Father Sahil reynoso Hypertension Father Sahil reynoso Stroke Father Sahil reynoso 40 - 49 Heart attack Father Sahil reynoso Autoimmune disease Brother Tristan fagan Crohn's disease Brother Tristan fagan - 29 Immunodeficiency Brother Tristan fagan Cancer Maternal Grandmother Melania sheridan Asthma Child ADD / ADHD Child 0 - 9 Thyroid disease Mother's Sister Ashanti 20 - 29 Liver disease Brother Scott 20 - 29 Anesthesia problems Neg Hx Malig Hyperthermia Neg Hx [4] Tobacco Use Smoking Status Former Current packs/day: 0.00 Average packs/day: 0.3 packs/day for 10.0 years (2.5 ttl pk-yrs) Types: Cigarettes Start date: 2011 Quit date: 2021 Years since quittin.8 Passive exposure: Never Smokeless Tobacco Former Tobacco Comments History of vaping after cigarettes. Stopped when she found out she was [5] Current Facility-Administered Medications: acetaminophen (Tylenol) tablet 650 mg, 650 mg, Oral, q6h PRN, Alfa Maria APRN busPIRone (Buspar) tablet 5 mg, 5 mg, Oral, Nightly, Alfa Maria APRN fludrocortisone (Florinef) tablet 0.1 mg, 0.1 mg, Oral, Daily, Alfa Maria APRN heparin (porcine) injection 5,000 Units, 5,000 Units, Subcutaneous, q8h SAL[place], Alfa Maria APRN levothyroxine (Synthroid, Levoxyl) tablet 25 mcg, 25 mcg, Oral, Daily, Alfa Maria APRN meclizine (Antivert) tablet 25 mg, 25 mg, Oral, Once, Jaren Holguin DO melatonin tablet 3 mg, 3 mg, Oral, Nightly PRN, Alfa Maria APRN ondansetron ODT (Zofran-ODT) disintegrating tablet 4 mg, 4 mg, Oral, q6h PRN OR ondansetron (Zofran) injection 4 mg, 4 mg, Intravenous, q6h PRN OR ondansetron (Zofran) 4 MG/5ML solution 4 mg,4 mg, Oral, q6h PRN, Alfa Maria APRN propranolol (Inderal) tablet 20 mg, 20 mg, Oral, BID, Alfa Maria APRN senna (Senokot) tablet 17.2 mg, 2 tablet, Oral, Nightly PRN, Alfa Maria APRN Insert peripheral IV, , , Once AND Saline lock IV, , , Once AND sodium chloride 0.9 % flush10 mL, 10 mL, Intravenous, q12h AND sodium chloride 0.9 % flush 10 mL, 10 mL, Intravenous, PRN,Alfa Maria APRN sodium chloride 0.9 % infusion 250 mL, 250 mL, Intravenous, Once, Shalonda Davies APRN Current Outpatient Medications: levothyroxine (Synthroid, Levoxyl) 25 MCG tablet, Take 1 tablet by mouth daily., Disp: , Rfl: propranolol (Inderal) 20 MG tablet, Take 1 tablet by mouth 3 (three) times a day. (Patient taking differently: Take 1 tablet by mouth 2 times a day.), Disp: 90 tablet, Rfl: 3 acetaminophen (Tylenol) 325 MG capsule, Take 2 capsules (650 mg) by mouth every 6 (six) hours if needed for mild pain., Disp: 30 capsule, Rfl: 1 bisacodyl (Bisacodyl EC) 5 MG EC tablet, Take all 4 tablets at 4 PM on day before colonoscopy IF INSURANCE DOES NOT COVER, please inform pt to purchase OTC (Patient not taking: Reported on 05/20/2025), Disp: 4 tablet, Rfl: 0 Blood Glucose Monitoring Suppl (Drifty Verio Reflect) w/Device kit, , Disp: , Rfl: busPIRone (Buspar) 5 MG tablet, Take 1 tablet (5 mg) by mouth every night. Takes at 8PM, Disp: 30 tablet, Rfl: 0 cholecalciferol (Vitamin D-3) 50 MCG (2000 UT) capsule, , Disp: , Rfl: famotidine (Pepcid) 20 MG tablet, Take 1 tablet (20 mg) by mouth 2 (two) times a day. (Patient not taking: Reported on 05/20/2025), Disp: 60 tablet, Rfl: 11 fludrocortisone (Florinef) 0.1 MG tablet, Take 1 tablet by mouth daily., Disp: 30 tablet, Rfl: 3 fluticasone (Flonase) 50 MCG/ACT nasal spray, Administer 1 spray into each nostril daily. (Patient not taking: Reported on 05/20/2025), Disp: , Rfl: ibuprofen 600 MG tablet, Take 1 tablet (600 mg) by mouth every 6 (six) hours if needed for mild pain. (Patient not taking: Reported on 05/20/2025), Disp: 30 tablet, Rfl: 1 ketoconazole (NIZOral) 2 % shampoo, USE SHAMPOO A BODY WASH, LATHER FOR 5 MINUTES THEN RINSE OFF. USE UNTIL RESOLVED., Disp: , Rfl: Lancets (Last Sizeuch Delica Plus [id number]) [facility], , Disp: , Rfl: methIMAzole (Tapazole) 10 MG tablet, Take 1 tablet by mouth daily. (Patient not taking: Reported on04/04/2025), Disp: 60 tablet, Rfl: 0 midodrine (Proamatine) 5 MG tablet, Take 1 tablet by mouth 3 times a day. 3 times daily during daytime hours when patient is upright. Avoid administering <4 hours before bedtime to minimize risk of supine hypertension ., Disp: 90 tablet, Rfl: 1 ondansetron (Zofran) 4 MG tablet, Take 1 tablet (4 mg) by mouth every 8 (eight) hours if needed fornausea or vomiting., Disp: 3 tablet, Rfl: 5 ondansetron ODT (Zofran-ODT) 4 MG disintegrating tablet, Dissolve 2 tablets on the tongue every 8 hours as needed for nausea or vomiting., Disp: 20 tablet, Rfl: 5 OneTouch Verio test strip, 1 each by Other route as needed., Disp: , Rfl: oral electrolytes (Thermotabs) tablet, Take 1 tablet by mouth 2 times a day., Disp: 60 tablet, Rfl:1 polyethylene glycol (GoLYTELY) 236 g solution, SEE PHARMACY NOTES FOR PATIENT LABEL INSTRUCTIONS- for Colonoscopy prep protocol, Disp: 4000 mL, Rfl: 0 potassium & sodium phosphates (Phos-NaK) 280-160-250 MG packet, Take 1 packet by mouth 1 (one) time each day., Disp: 30 packet, Rfl: 1 pyridostigmine (Mestinon) 30 MG tablet, Take 1 tablet by mouth 2 times a day. (Patient not taking: Reported on 05/20/2025), Disp: 60 tablet, Rfl: 1 senna-docusate (Codi-Colace) 8.6-50 MG tablet, Take 1 tablet by mouth 1 (one) time each day. (Patient not taking: Reported on 05/20/2025), Disp: 30 tablet, Rfl: 1 simethicone (Mylicon) 80 MG chewable tablet, Chew 1 tablet every 6 hours as needed. (Patient not taking: Reported on 05/20/2025), Disp: , Rfl: sodium chloride (Roberta Nasal Bowlegs) 0.65 % nasal spray, Administer 1 spray into each nostril if needed for congestion., Disp: 30 mL, Rfl: 12 Ventolin HFA 108 (90 Base) MCG/ACT inhaler, , Disp: , Rfl: * ED Provider Notes - Jaren Holguin DO - 05/19/2025 11:21 PM EDT Images from the original note were not included. - HPI Chief Complaint Patient presents with Dizziness Patient is a 25 YO F with PMH of POTS who presents to the ED for dizziness. Patient reported feeling the symptoms beginning to come on 05/18. She was at home alone when attempting to cotton picker her child and almost passed out. She reported feeling dizzy like the room was spinning while she was lookingstraight ahead. Today 05/19 she continued to get dizzy whenever she would sit up or stand up. Went to [facility] where she was evaluated in the ED with negative labs and scans. CBC: WNL CMP: Total protein 9.4 (6.3-8.2), T Bilirubin 2.1 (0.2-1.3) B-HCG: Negative CT Head w/out Contrast: No acute intracranial abnormality CTA Head&Neck: No Stenoses or Occlusions She was treated with IV Valium and oral meclizine in the ED with minimal improvement of her symptoms. Dr Sun contacted Dr. Gonzales to arrange transfer to [facility] for Neurology consult and potential MRI. Patient is stable in the room on evaluation with persistent symptoms. History provided by: Patient sign language interpreter used: No Patient History Past Medical History[1] Surgical History[2] Family History[3] Social History[4] Allergies: Allergies[5] Physical Exam ED Triage Vitals [05/19/25 2340] Temp Heart Rate Resp BP 36.4 ??C (97.6 ??F) 76 -- (!) 144/87 SpO2 Temp src Heart Rate Source Patient Position 96 % -- -- -- BP Location FiO2 (%) -- -- Physical Exam Constitutional: Appearance: Normal appearance. She is normal weight. HENT: Head: Normocephalic and atraumatic. Right Ear: Tympanic membrane, ear canal and external ear normal. Left Ear: Tympanic membrane, ear canal and external ear normal. Ears: Comments: No noted TM perforation bilaterally Nose: Nose normal. Mouth/Throat: Mouth: Mucous membranes are moist. Eyes: Extraocular Movements: Extraocular movements intact. Conjunctiva/sclera: Conjunctivae normal. Pupils: Pupils are equal, round, and reactive to light. Cardiovascular: Rate and Rhythm: Normal rate and regular rhythm. Pulses: Normal pulses. Heart sounds: Normal heart sounds. Pulmonary: Effort: Pulmonary effort is normal. No respiratory distress. Breath sounds: Normal breath sounds. Abdominal: General: Abdomen is flat. Palpations: Abdomen is soft. Musculoskeletal: General: Normal range of motion. Cervical back: Normal range of motion and neck supple. No rigidity. Skin: General: Skin is warm and dry. Neurological: General: No focal deficit present. Mental Status: She is alert and oriented to person, place, and time. Mental status is at baseline. Cranial Nerves: No cranial nerve deficit. Sensory: No sensory deficit. Motor: No weakness. Psychiatric: Mood and Affect: Mood normal. Behavior: Behavior normal. No data recorded ED Course & MDM -Patient transferred from outside hospital for a chief complain of dizziness. Transferred for a neuro consult and MRI. Patient stable on evaluation. She had a near-syncopal and given her PMH an EKG was ordered. Consulted neurology and medicine for further evaluation. Assessment: 25 y.o. female presents to ED with complaint of dizziness. It should be noted that the chronic conditions includes POTS, which currently is not at goal therapy. This complicates the clinical picture because it Comorbidities: may be exacerbating symptoms, increases the amount and complexity of data to be reviewed, and complicates the clinical workup Differential Diagnosis: Vertigo Rupture of tympanic membrane POTS Exacerbation Autoimmune attack In order to fully explore the differential diagnosis the following treatments and tests were ordered: EKG and orthostats were ordered due to POTS and near-syncopal episodes. Basic labs and imaging acquired at outside hospital. ED Medication Administration from 05/19/20252126 to 05/20/2025222 Date/Time Order Dose Route Action 05/20/2025 0102 EDT meclizine (Antivert) tablet 25 mg 25 mg Oral Not Given All Other Orders Ordered Status Ordering Provider 05/20/25222 Intake and output Every 6 hours Acknowledged ALFA AMRIA 05/20/25222 Vital Signs Every 4 hours Placed in And Linked Group Acknowledged ALFA MARIA 05/20/25222 Pulse Oximetry Every 4 hours Placed in And Linked Group Acknowledged ALFA MARIA 05/20/25222 Neuro checks Every 4 hours Acknowledged ALFA MARIA 05/20/25222 CBC Morning draw Acknowledged ALFA MARIA 05/20/25222 Comprehensive metabolic panel Morning draw Acknowledged ALFA MARIA 05/20/25222 Magnesium, Plasma Morning draw Acknowledged ALFA MARIA 05/20/25222 Phosphorus Morning draw Acknowledged ALFA MARIA 05/20/25222 Weigh patient Daily Acknowledged ALFA MARIA 05/20/25222 Do Not Give Nicotine Replacement Until discontinued Acknowledged ALFA MARIA 05/20/25222 Hepatitis C Antibody - ED Once In process ALFA MARIA 05/20/25222 ED Protocol - HIV 1/2 Antibody/Antigen Screen Once In process ALFA MARIA 05/20/25222 Fall precautions Until discontinued Acknowledged ALFA MARIA 05/20/25222 Nursing oxygen orders - 92% or more Once Comments: Maintain O2 sat greater than 92%; Call MD for hypoxia or an increased O2 requirement Acknowledged ALFA MARIA 05/20/25222 Nursing oxygen orders - wean Once Comments: Wean oxygen to maintain saturations more than 92% Acknowledged ALFA MARIA 05/20/25222 Telemetry Monitoring for Other Indication, which must be specified via free response in the orders Until discontinued Acknowledged ALFA MARIA 05/20/25222 Full code Continuous Acknowledged ALFA MARIA 05/20/25222 Adult diet Diet texture: Regular Diet effective now Acknowledged ALFA MARIA 05/20/25222 Orthostatic Vital Signs Once Comments: Please do laying and standing within one minute of standing patient. Acknowledged ALFA MARIA 05/20/25222 Mobility Orders Until discontinued Acknowledged ALFA MARIA 05/20/25222 Notify physician (specify parameters) Until discontinued Acknowledged ALFA MARIA 05/20/25222 Insert peripheral IV Once Placed in And Linked Group Acknowledged ALFA MARIA 05/20/25222 Saline lock IV Once Placed in And Linked Group Acknowledged ALFA MARIA 05/20/25222 Admit to inpatient Once Completed ALFA MARIA 05/20/2545 MR Orbits w and wo IV Contrast Once Acknowledged JAREN HOLGUIN 05/20/2545 MR Head w and wo IV Contrast Once Acknowledged JAREN HOLGUIN 05/20/2545 Consult to [facility] Once Specialty: Internal Medicine Provider: (Not yet assigned) Acknowledged JAREN HOLGUIN 05/20/256 ED to floor bed request Once Completed JAREN HOLGUIN 05/20/2540 Consult to Neurology Once Specialty: Neurology Provider: (Not yet assigned) Acknowledged JAREN HOLGUIN 05/20/2540 ED to floor bed request Once Completed JAREN HOLGUIN 05/20/25 0008 Orthostatic vitals Per unit protocol Acknowledged JAREN HOLGUIN 05/20/25 000 EKG now - STAT (adult) Once Preliminary result JAREN HOLGUIN ED Course as of 05/20/25250 Sat May 20, 2025 0235 Patient arrived hemodynamically stable, nontoxic appearing. Reassuring physical and neurological exam. No noted nystagmus, cranial nerves 2-12 grossly intact, motor and sensory intact. Outside records reviewed as above in HPI. EKG was obtained which shows sinus rhythm with PVC, normal axis, normal intervals, no noted ST elevation. Discussed patient with neurology team who have requested MRI as well as hospital medicine admission with Neurology team to see patient in the morning. Consulted Hospital Medicine team for evaluation and admission. Patient admitted to hospital in hemodynamicallystable condition. [SC] ED Course User Index [SC] Jaren Holguin DO Clinical Impressions as of 05/20/25250 Near syncope POTS (postural orthostatic tachycardia syndrome) Dizziness Social Determinates of Health Risks (including Economic Stability, Education and level of understanding, Healthcare access and quality and concerning social factors): None identified on this visit Ultimately, this patient was Was admitted (Admission) The primary encounter diagnosis was Near syncope. Diagnoses of POTS (postural orthostatic tachycardia syndrome) and Dizziness were also pertinent to this visit.. Patient believed to require admission for the listed diagnoses. The Internal Medicine service was consulted for admission andwas agreeable to admit to Acute Floor (Med/Surg). ED Prescriptions None Disposition Admit Requested Location: [facility] [[id number]] - Jaren Bass DO, personally verified the history, examined the patient with the student andperformed the medical decision making. I agree with the documentation and plan of care. [1] Past Medical History: Diagnosis Date Abnormal ECG Anemia Anxiety Depression Eczema Food intolerance GERD (gastroesophageal reflux disease) Gilbert syndrome 2019 Headache, tension-type Hypertension Hyperthyroidism auto immune Insomnia Liver disease Migraine Peptic ulceration POTS (postural orthostatic tachycardia syndrome) 01/2024 Severe malnutrition (CMS/HCC) 03/14/2024 ~16% wt loss x 4m; weight loss in setting of POTS, decreased oral intake, Syncope [2] Past Surgical History: Procedure Laterality Date [...] date: 2011 Quit date: 2021 Years since quittin.8 Passive exposure: Never Smokeless tobacco: Former Tobacco [...] this. Atarax [Hydroxyzine] Palpitations Benadryl [Diphenhydramine] Palpitations Iv Contrast Other - please document in the comment field Shaking, chest pain, dizziness, vomiting Penicillins Other - please document in the comment field Jaren Holguin DO 05/20/25 0252 * ED Triage Notes - Fausto Hauser RN - 05/19/2025 11:21 PM EDT Patient presents to ED from [facility] ([facility]) for further workup of dizziness. Was seen 3 times at [facility] for same sx without any relief. [facility] sent for neuro consult and MRI for persistent dizziness. documented in this encounter Plan of Treatment Upcoming Encounters Date Type Department Care Team (Late st Contact Info) Description 08/08/2025 1:20 PM EST Office Visit [facility] Medicine Specialties [address] [place] [phone] Antoine Manrique MD [address] [place], [place] [id number] 08/28/2025 10:40 AM EST Office Visit [facility] [place] [address], [address] [place] [address] Courtney Torres MD [address] [place] [address] 09/12/2025 12:20 PM EST Office Visit [facility] Medicine Specialties [address] [place] [address] Jessica Mcdonnell PA [address] [place] [phone] 11/07/2025 2:00 PM EDT Office Visit [facility] Medicine Specialties [address] [place] [phone] Maddie Mtz PA [address] [place] [address] Scheduled Referrals Name Type Priority Associated Diagnoses Order Schedule Discharge Ambulatory referral to NON Physical Therapy Outpatient Referral Routine Near syncope POTS (postural orthostatic tachycardia syndrome) 1 Occurrences starting 05/21/2025 until 11/22/2026 Discharge Ambulatory referral to NON ENT Outpatient Referral Routine Near syncope POTS (postural orthostatic tachycardia syndrome) 1 Occurrences starting 05/21/2025 until 11/22/2026 Ambulatory referral to External PCP Outpatient Referral Routine Near syncope POTS (postural orthostatic tachycardia syndrome) 1 Occurrences starting 05/21/2025 until 11/22/2026 documented as of this encounter Goals Goal Patient Goal Type Associated Problems Recent Progress Patient-Stated? Author Delayed Delivery Care Plan CPM S22 PP LABOR (OBSTETRICS) No Open Scheduling, Background documented as of this encounter Procedures Procedure Name Priority Date/Time Associated Diagnosis Comments CT ANGIO NECK Routine 05/20/2025 8:[address] ANGIO HEAD Routine 05/20/2025 8:08 PM EDT ECG ADULT STAT 05/20/2025 6:32 AM EDT CBC W/O DIFFERENTIAL Routine 05/20/2025 5:26 AM EDT PHOSPHORUS, PLASMA Routine 05/20/2025 5: 26 AM EDT MAGNESIUM, PLASMA Routine 05/20/2025 5:2 6 AM EDT COMPREHENSIVE METABOLIC PANEL, PLASMA Routine 05/20/2025 5:26 AM EDT MR ORBITS W AND WO IV CONTRAST STAT 05/20/2025 4:36 AM EDT MR HEAD W AND WO IV CONTRAST STAT 05/20/2025 4:36 AM EDT ECG ADULT STAT 05/20/2025 2:36 AM EDT ED HIV 1/2 ANTIBODY/ANTIGEN SCREEN WITH REFLEX TO HIV I/II DIFFERENTIATION Routine 05/20/2025 2:36 AM EDT ED PROTOCOL HIV 1/2 ANTIBODY/ANTIGEN SCREEN W/REFLEX TO HIV 1/2 ANTIBODY DIFFERENTIATION Routine 05/20/2025 2:36 AM EDT HEPATITIS C ANTIBODY - ED W/REFLEX TO HCV QUANT PCR Routine 05/20/2025 2:36 AM EDT documented in this encounter Results * CT Angio Head (05/20/2025 8:08 PM EDT) Anatomical Region Laterality Modality [place] Computed Tomogr aphy Impressions 05/20/2025 8:47 PM EDT Neck CTA: No hemodynamically significant stenosis is present within the cervical carotid and vertebral systems. Head CTA: No hemodynamically significant intracranial arterial stenosis or aneurysm is present. CRITICAL RESULT: None. COMMUNICATION: Per this written report. Drafted by Tila Lewis MD on 05/20/2025 8:43 PM Final report signed by Tila Lewis MD on 05/20/2025 8:47 PM Narrative 05/20/2025 8:47 PM EDT CLINICAL INDICATION: Vertigo, central TECHNIQUE: Head CTA: Axial images were obtained through the head during contrast bolus injection and multiplanar MIP images were created. Neck CTA: Axial images were obtained through the neck during bolus contrast injection and multiplanar reformatted and MIP images were created. 100 mL of Omnipaque 350 were administered intravenously. Total DLP (Dose-Length Product): 665.64 mGy.cm Please note: The reported value represents the total of one or more individual components during the CT acquisition on this date and at this time, and as such, the same value may appear in more than one CT report depending on the interpreting/reporting physicians. COMPARISON: Brain MRI performed 16 [address] Outside head CT performed one day ago at [facility] FINDINGS: Neck CTA: Diagnostic Quality: Adequate Aorta and Great Vessel Origins: Conventional branching pattern. No significant stenosis of the origins of the great arteries. Right Cervical Carotid System: There is no significant plaque with 0% stenosis at the bifurcation by NASCET criteria. There is no evidence of dissection or pseudoaneurysm in the right common and internal carotid arteries. Left Cervical Carotid System: There is no significant plaque with 0% stenosis at the bifurcation by NASCET criteria. There is no evidence of dissection or pseudoaneurysm in the right common and internal carotid arteries. Vertebral arteries: There is no significant stenosis of the vertebral arteries. No evidence of dissection or pseudoaneurysm. Other Findings: The visualized soft tissue of the neck are within normal limits. Visualized upper lungs are clear. Head CTA: Diagnostic Quality: Adequate Vertebrobasilar System: The intradural vertebral arteries are patent without significant stenosis. The basilar artery and its major branches are within normal limits. There is no aneurysm. Carotid Arteries: There is no significant calcific atherosclerosis. No significant stenosis or occlusion. No aneurysm. [place] and Major Peripheral Branches: There is no significant stenosis or occlusion. There is no aneurysm. Procedure Note Tila Lewis MD - 05/20/2025 CLINICAL INDICATION: Vertigo, central TECHNIQUE: Head CTA: Axial images were obtained through the head during contrastbolus injection and multiplanar MIP images were created. Neck CTA: Axial images were obtained through the neck during boluscontrast injection and multiplanar reformatted and MIP images werecreated. 100 mL of Omnipaque 350 were administered intravenously. Total DLP (Dose-Length Product): 665.64 mGy.cm Please note: The reportedvalue represents the total of one or more individual components during theCT acquisition on this date and at this time, and as such, the same valuemay appear in more than one CT report depending on theinterpreting/reporting physicians. COMPARISON: Brain MRI performed [address] Outside head CT performed one day ago at [facility] FINDINGS: Neck CTA: Diagnostic Quality: Adequate Aorta and Great Vessel Origins: Conventional branching pattern. Nosignificant stenosis of the origins of the great arteries. Right Cervical Carotid System: There is no significant plaque with 0%stenosis at the bifurcation by NASCET criteria. There is no evidence ofdissection or pseudoaneurysm in the right common and internal carotidarteries. Left Cervical Carotid System: There is no significant plaque with 0%stenosis at the bifurcation by NASCET criteria. There is no evidence ofdissection or pseudoaneurysm in the right common and internal carotidarteries. Vertebral arteries: There is no significant stenosis of the vertebralarteries. No evidence of dissection or pseudoaneurysm. Other Findings: The visualized soft tissue of the neck are within normallimits. Visualized upper lungs are clear. Head CTA: Diagnostic Quality: Adequate Vertebrobasilar System: The intradural vertebral arteries are patentwithout significant stenosis. The basilar artery and its major branchesare within normal limits. There is no aneurysm. Carotid Arteries: There is no significant calcific atherosclerosis. Nosignificant stenosis or occlusion. No aneurysm. [place] and Major Peripheral Branches: There is no significantstenosis or occlusion. There is no aneurysm. IMPRESSION: Neck CTA: No hemodynamically significant stenosis is present within the cervicalcarotid and vertebral systems. Head CTA: No hemodynamically significant intracranial arterial stenosis or aneurysmis present. CRITICAL RESULT: None. COMMUNICATION: Per this written report. Drafted by Tila Lewis MD on 05/20/2025 8:43 PM Final report signed by Tila Lewis MD on 05/20/2025 8:47 PM Lorenzo Aguillon MD IMG CT PROCEDURES Final Result * CT Angio Neck (05/20/2025 8:08 PM EDT) Anatomical Region Laterality Modality Carotid Artery Computed Tomogra phy Impressions 05/20/2025 8:47 PM EDT Neck CTA: No hemodynamically significant stenosis is present within the cervical carotid and vertebral systems. Head CTA: No hemodynamically significant intracranial arterial stenosis or aneurysm is present. CRITICAL RESULT: None. COMMUNICATION: Per this written report. Drafted by Tila Lewis MD on 05/20/2025 8:43 PM Final report signed by Tila Lewis MD on 05/20/2025 8:47 PM Narrative 05/20/2025 8:47 PM EDT CLINICAL INDICATION: Vertigo, central TECHNIQUE: Head CTA: Axial images were obtained through the head during contrast bolus injection and multiplanar MIP images were created. Neck CTA: Axial images were obtained through the neck during bolus contrast injection and multiplanar reformatted and MIP images were created. 100 mL of Omnipaque 350 were administered intravenously. Total DLP (Dose-Length Product): 665.64 mGy.cm Please note: The reported value represents the total of one or more individual components during the CT acquisition on this date and at this time, and as such, the same value may appear in more than one CT report depending on the interpreting/reporting physicians. COMPARISON: Brain MRI performed 16 hours prior Outside head CT performed one day ago at [facility] FINDINGS: Neck CTA: Diagnostic Quality: Adequate Aorta and Great Vessel Origins: Conventional branching pattern. No significant stenosis of the origins of the great arteries. Right Cervical Carotid System: There is no significant plaque with 0% stenosis at the bifurcation by NASCET criteria. There is no evidence of dissection or pseudoaneurysm in the right common and internal carotid arteries. Left Cervical Carotid System: There is no significant plaque with 0% stenosis at the bifurcation by NASCET criteria. There is no evidence of dissection or pseudoaneurysm in the right common and internal carotid arteries. Vertebral arteries: There is no significant stenosis of the vertebral arteries. No evidence of dissection or pseudoaneurysm. Other Findings: The visualized soft tissue of the neck are within normal limits. Visualized upper lungs are clear. Head CTA: Diagnostic Quality: Adequate Vertebrobasilar System: The intradural vertebral arteries are patent without significant stenosis. The basilar artery and its major branches are within normal limits. There is no aneurysm. Carotid Arteries: There is no significant calcific atherosclerosis. No significant stenosis or occlusion. No aneurysm. [place] and Major Peripheral Branches: There is no significant stenosis or occlusion. There is no aneurysm. Procedure Note Tila Lewis MD - 05/20/2025 CLINICAL INDICATION: Vertigo, central TECHNIQUE: Head CTA: Axial images were obtained through the head during contrastbolus injection and multiplanar MIP images were created. Neck CTA: Axial images were obtained through the neck during boluscontrast injection and multiplanar reformatted and MIP images werecreated. 100 mL of Omnipaque 350 were administered intravenously. Total DLP (Dose-Length Product): 665.64 mGy.cm Please note: The reportedvalue represents the total of one or more individual components during theCT acquisition on this date and at this time, and as such, the same valuemay appear in more than one CT report depending on theinterpreting/reporting physicians. COMPARISON: Brain MRI performed 16 hours prior Outside head CT performed one day ago at [facility] FINDINGS: Neck CTA: Diagnostic Quality: Adequate Aorta and Great Vessel Origins: Conventional branching pattern. Nosignificant stenosis of the origins of the great arteries. Right Cervical Carotid System: There is no significant plaque with 0%stenosis at the bifurcation by NASCET criteria. There is no evidence ofdissection or pseudoaneurysm in the right common and internal carotidarteries. Left Cervical Carotid System: There is no significant plaque with 0%stenosis at the bifurcation by NASCET criteria. There is no evidence ofdissection or pseudoaneurysm in the right common and internal carotidarteries. Vertebral arteries: There is no significant stenosis of the vertebralarteries. No evidence of dissection or pseudoaneurysm. Other Findings: The visualized soft tissue of the neck are within normallimits. Visualized upper lungs are clear. Head CTA: Diagnostic Quality: Adequate Vertebrobasilar System: The intradural vertebral arteries are patentwithout significant stenosis. The basilar artery and its major branchesare within normal limits. There is no aneurysm. Carotid Arteries: There is no significant calcific atherosclerosis. Nosignificant stenosis or occlusion. No aneurysm. [place] and Major Peripheral Branches: There is no significantstenosis or occlusion. There is no aneurysm. IMPRESSION: Neck CTA: No hemodynamically significant stenosis is present within the cervicalcarotid and vertebral systems. Head CTA: No hemodynamically significant intracranial arterial stenosis or aneurysmis present. CRITICAL RESULT: None. COMMUNICATION: Per this written report. Drafted by Tila Lewis MD on 05/20/2025 8:43 PM Final report signed by Tila Lewis MD on 05/20/2025 8:47 PM Lorenzo Aguillon MD IMG CT PROCEDURES Final Result * ECG Adult (05/20/2025 6:32 AM EDT) EKG DIAGNOSIS CLASS Abnormal MUSE ECG Ventricular Rate 86 BPM MUSE ECG Atrial Rate 86 BPM MUSE ECG WI Interval 142 ms MUSE ECG QRSD Interval 78 ms MUSE ECG QT Interval 366 ms MUSE ECG QTC Interval 437 ms MUSE ECG P [place] 45 degrees MUSE ECG R [place] 22 degrees MUSE ECG T Wave [place] 44 degrees MUSE ECG Diagnosis Sinus rhythm with occasional premature ventricular complexes MUSE ECG Diagnosis Nonspecific ST abnormality MUSE ECG Diagnosis Abnormal ECG MUSE ECG Diagnosis MUSE ECG Diagnosis Confirmed by Skyler Eller ([id number]) on 05/20/2025 6:00:52 PM MUSE ECG 05/20/2025 6:32 AM EDT 05/20/2025 6:00 PM EDT Toi Tolentino MD ECG ORDERABLES Final Result MUSE ECG * Phosphorus (05/20/2025 5:26 AM EDT) Phosphorus, Plasma 3.4 2.5 - 4.5 mg/dL 05/20/2025 7:54 AM EDT [facility] Blood Venous blood specimen / Unknown Venipuncture / Unknown 05/20/2025 5:26 AM EDT 05/20/2025 5:42 AM EDT Alfa Maria APRN LAB BLOOD ORDERABLES Final R esult Performing Organization Address City/[facility] Co de Phone Number [facility] [address] [place] [address] * Magnesium, Plasma (05/20/2025 5:26 AM EDT) Magnesium, Plasma 2.2 1.9 - 2.4 mg/dL 05/20/2025 7:54 AM EDT [facility] Blood Venous blood specimen / Unknown Venipuncture / Unknown 05/20/2025 5:26 AM EDT 05/20/2025 5:42 AM EDT Alfa Maria APRN LAB BLOOD ORDERABLES Final R esult Performing Organization Address City/[facility] Co de Phone Number [facility] [address] [place] [address] * (ABNORMAL) Comprehensive metabolic panel (05/20/2025 5:26 AM EDT) Glucose, Plasma 85 74 - 99 mg/dL 05/20/2025 7:54 AM EDT [facility] BUN, Plasma 12 7 - 21 mg/dL 05/20/2025 7:54 AM EDT [facility] Creatinine, Plasma 0.69 0.60 - 1.10 mg/dL 05/20/2025 7:54 AM EDT [facility] BUN/Creatinine Ratio 17 05/20/2025 7:54 AM EDT [facility] Sodium, Plasma 138 136 - 145 mmol/L 05/20/2025 7:54 AM EDT [facility] Potassium, Plasma 3.9 3.6 - 4.9 mmol/L 05/20/2025 7:54 AM EDT [facility] Chloride, Plasma 106 97 - 107 mmol/L 05/20/2025 7:54 AM EDT [facility] CO2, Plasma 19(L) 22 - 29 mmol/L 05/20/2025 7:54 AM EDT [facility] Anion Gap 13 6 - 16 mmol/L 05/20/2025 7:54 AM EDT [facility] Total Calcium, Plasma 9.1 8.9 - 10.2 mg/dL 05/20/2025 7:54 AM EDT [facility] Total Protein 7.2 6.3 - 7.9 g/dL 05/20/2025 7:54 AM EDT [facility] Albumin, Plasma 4.2 3.5 - 5.2 g/dL 05/20/2025 7:54 AM EDT [facility] AST, Plasma 19 10 - 35 U/L 05/20/2025 7:54 AM EDT [facility] ALT, Plasma 13 10 - 35 U/L 05/20/2025 7:54 AM EDT [facility] Alkaline Phosphatase, Plasma 56 35 - 104 U/L 05/20/2025 7:54 AM EDT [facility] Total Bilirubin, Plasma 1.1 0.2 - 1.1 mg/dL 05/20/2025 7:54 AM EDT [facility] eGFRcr 122.2 mL/min/1.7 3m*2 05/20/2025 7:54 AM EDT [facility] Comment:Reported eGFRcr in m L/min/1.73m2 is based the CKD-EPI 2020 equation that does not use a race coefficient. Blood Venous blood specimen / Unknown Venipuncture / Unknown 05/20/2025 5:26 AM EDT 05/20/2025 5:42 AM EDT us Alfa Maria APRN LAB BLOOD ORDERABLES Final R esult [facility] [address] [place] [address] * CBC (05/20/2025 5:26 AM EDT) WBC Count 6.99 3.70 - 10.30 10*3/uL LAB HEMATOLOGY METHOD 05/20/2025 5:44 AM EDT [facility] RBC Count 4.76 3.90 - 5.20 10*6/uL LAB HEMATOLOGY METHOD 05/20/2025 5:44 AM EDT [facility] HGB 13.2 11.2 - 15.7 g/dL LAB HEMATOLOGY METHOD 05/20/2025 5:44 AM EDT [facility] HCT 39.8 34.0 - 45.0 % LAB HEMATOLOGY METHOD 05/20/2025 5:44 AM EDT [facility] Platelet Count 184 155 - 369 10*3/uL LAB HEMATOLOGY METHOD 05/20/2025 5:44 AM EDT [facility] MCV 84 79 - 98 fL LAB HEMATOLOGY METHOD 05/20/2025 5:44 AM EDT [facility] MCH 27.7 26.0 - 32.0 pg LAB HEMATOLOGY METHOD 05/20/2025 5:44 AM EDT [facility] MCHC 33.2 30.7 - 35.5 g/dL LAB HEMATOLOGY METHOD 05/20/2025 5:44 AM EDT [facility] RDW 14.1 11.5 - 14.5 % LAB HEMATOLOGY METHOD 05/20/2025 5:44 AM EDT [facility] MPV 11.9 8.8 - 12.5 fL LAB HEMATOLOGY METHOD 05/20/2025 5:44 AM EDT [facility] nRBC 0.0 <=0.0 per 100 WBCs LAB HEMATOLOGY METHOD 05/20/2025 5:44 AM EDT [facility] Blood Venous blood specimen / Unknown Venipuncture / Unknown 05/20/2025 5:26 AM EDT 05/20/2025 5:42 AM EDT us Alfa Maria APRN LAB BLOOD ORDERABLES Final R esult [facility] [address] [place] [address] * MR Orbits w and wo IV Contrast (05/20/2025 4:36 AM EDT) Anatomical Region Laterality Modality Orbital structure Magnetic Reson ance Impressions 05/20/2025 4:00 PM EDT MRI of the brain with contrast within normal limits. No definite mass lesions or areas of abnormal signal or enhancement within the orbits. CRITICAL RESULT: No. COMMUNICATION: Per this written report. Drafted by Ronald Diggs MD on 05/20/2025 3:52 PM Final report signed by Ronald Diggs MD on 05/20/2025 4:00 PM Narrative 05/20/2025 4:00 PM EDT CLINICAL INDICATION: Persistent vertigo TECHNIQUE: Multiplanar multiecho sequences were performed through the brain utilizing T1 and T2 weighting, as well as either axial susceptibility weighted or gradient echo sequences, and axial diffusion weighted images. Imaging was performed with and without contrast administration: 7.3 mL of Gadavist. Multiplanar multiecho sequences were performed through the orbits utilizing T1 and T2 weighted, with and without contrast, and with and without fat-saturation. COMPARISON: Outside CT head and CTA from 05/19/2025 FINDINGS: MRI BRAIN: Diagnostic Quality: Adequate. The ventricles and sulci are normal in size. There are no definite focal parenchymal lesions or masses. Subtle linear-like hyperintensity on FLAIR images within the central portions of the fantasma series 9 image 9 is no definitely visualized on other sequences, favored artifactual. No abnormal intracranial enhancement is present. There is no abnormal parenchymal susceptibility artifact or restricted diffusion. Vascular Flow Voids: Normal. Extracranial Findings: None. Craniocervical Junction and Skull Base: No tonsillar ectopia or mass is present. MRI ORBIT: Diagnostic Quality: Adequate. Orbits: No orbital masses are present. The globes are normal. The extraocular muscles are normal in size, signal and configuration. The lacrimal glands are normal. Optic Nerves: The optic nerves are normal in size and signal intensity. No abnormal enhancement is present within the optic nerves or of the optic nerve sheaths. Soft Tissues: No masses are present within the preseptal and periorbital soft tissues Sellar/Suprasellar Region: No sellar or suprasellar masses are present. No cavernous sinus masses are present. Paranasal Sinuses/Nasal Cavity: Minimal mucosal thickening in the paranasal sinuses, likely inflammatory. No nasal masses are present. Procedure Note Ronald Claire MD - 05/20/2025 CLINICAL INDICATION: Persistent vertigo TECHNIQUE: Multiplanar multiecho sequences were performed through the brain utilizingT1 and T2 weighting, as well as either axial susceptibility weighted orgradient echo sequences, and axial diffusion weighted images. Imaging wasperformed with and without contrast administration: 7.3 mL of Gadavist. Multiplanar multiecho sequences were performed through the orbitsutilizing T1 and T2 weighted, with and without contrast, and with andwithout fat-saturation. COMPARISON: Outside CT head and CTA from 05/19/2025 FINDINGS: MRI BRAIN: Diagnostic Quality: Adequate. The ventricles and sulci are normal in size. There are no definite focal parenchymal lesions or masses. Subtlelinear-like hyperintensity on FLAIR images within the central portions ofthe fantasma series 9 image 9 is no definitely visualized on other sequences,favored artifactual. No abnormal intracranial enhancement is present. There is no abnormal parenchymal susceptibility artifact or restricteddiffusion. Vascular Flow Voids: Normal. Extracranial Findings: None. Craniocervical Junction and Skull Base: No tonsillar ectopia or mass ispresent. MRI ORBIT: Diagnostic Quality: Adequate. Orbits: No orbital masses are present. The globes are normal. Theextraocular muscles are normal in size, signal and configuration. Thelacrimal glands are normal. Optic Nerves: The optic nerves are normal in size and signal intensity. Noabnormal enhancement is present within the optic nerves or of the opticnerve sheaths. Soft Tissues: No masses are present within the preseptal and periorbitalsoft tissues Sellar/Suprasellar Region: No sellar or suprasellar masses are present. Nocavernous sinus masses are present. Paranasal Sinuses/Nasal Cavity: Minimal mucosal thickening in theparanasal sinuses, likely inflammatory. No nasal masses are present. IMPRESSION: MRI of the brain with contrast within normal limits. No definite mass lesions or areas of abnormal signal or enhancement withinthe orbits. CRITICAL RESULT: No. COMMUNICATION: Per this written report. Drafted by Ronald Diggs MD on 05/20/2025 3:52 PM Final report signed by Ronald Diggs MD on 05/20/2025 4:00 PM Jaren Holguin DO [facility] [place] PROCEDURES Final Res ult * MR Head w and wo IV Contrast (05/20/2025 4:36 AM EDT) Anatomical Region Laterality Modality Head Magnetic Resonan ce Impressions 05/20/2025 4:00 PM EDT MRI of the brain with contrast within normal limits. No definite mass lesions or areas of abnormal signal or enhancement within the orbits. CRITICAL RESULT: No. COMMUNICATION: Per this written report. Drafted by Ronald Diggs MD on 05/20/2025 3:52 PM Final report signed by Ronald Diggs MD on 05/20/2025 4:00 PM Narrative 05/20/2025 4:00 PM EDT CLINICAL INDICATION: Persistent vertigo TECHNIQUE: Multiplanar multiecho sequences were performed through the brain utilizing T1 and T2 weighting, as well as either axial susceptibility weighted or gradient echo sequences, and axial diffusion weighted images. Imaging was performed with and without contrast administration: 7.3 mL of Gadavist. Multiplanar multiecho sequences were performed through the orbits utilizing T1 and T2 weighted, with and without contrast, and with and without fat-saturation. COMPARISON: Outside CT head and CTA from 05/19/2025 FINDINGS: MRI BRAIN: Diagnostic Quality: Adequate. The ventricles and sulci are normal in size. There are no definite focal parenchymal lesions or masses. Subtle linear-like hyperintensity on FLAIR images within the central portions of the fantasma series 9 image 9 is no definitely visualized on other sequences, favored artifactual. No abnormal intracranial enhancement is present. There is no abnormal parenchymal susceptibility artifact or restricted diffusion. Vascular Flow Voids: Normal. Extracranial Findings: None. Craniocervical Junction and Skull Base: No tonsillar ectopia or mass is present. MRI ORBIT: Diagnostic Quality: Adequate. Orbits: No orbital masses are present. The globes are normal. The extraocular muscles are normal in size, signal and configuration. The lacrimal glands are normal. Optic Nerves: The optic nerves are normal in size and signal intensity. No abnormal enhancement is present within the optic nerves or of the optic nerve sheaths. Soft Tissues: No masses are present within the preseptal and periorbital soft tissues Sellar/Suprasellar Region: No sellar or suprasellar masses are present. No cavernous sinus masses are present. Paranasal Sinuses/Nasal Cavity: Minimal mucosal thickening in the paranasal sinuses, likely inflammatory. No nasal masses are present. Procedure Note Ronald Claire MD - 05/20/2025 CLINICAL INDICATION: Persistent vertigo TECHNIQUE: Multiplanar multiecho sequences were performed through the brain utilizingT1 and T2 weighting, as well as either axial susceptibility weighted orgradient echo sequences, and axial diffusion weighted images. Imaging wasperformed with and without contrast administration: 7.3 mL of Gadavist. Multiplanar multiecho sequences were performed through the orbitsutilizing T1 and T2 weighted, with and without contrast, and with andwithout fat-saturation. COMPARISON: Outside CT head and CTA from 05/19/2025 FINDINGS: MRI BRAIN: Diagnostic Quality: Adequate. The ventricles and sulci are normal in size. There are no definite focal parenchymal lesions or masses. Subtlelinear-like hyperintensity on FLAIR images within the central portions ofthe fantasma series 9 image 9 is no definitely visualized on other sequences,favored artifactual. No abnormal intracranial enhancement is present. There is no abnormal parenchymal susceptibility artifact or restricteddiffusion. Vascular Flow Voids: Normal. Extracranial Findings: None. Craniocervical Junction and Skull Base: No tonsillar ectopia or mass ispresent. MRI ORBIT: Diagnostic Quality: Adequate. Orbits: No orbital masses are present. The globes are normal. Theextraocular muscles are normal in size, signal and configuration. Thelacrimal glands are normal. Optic Nerves: The optic nerves are normal in size and signal intensity. Noabnormal enhancement is present within the optic nerves or of the opticnerve sheaths. Soft Tissues: No masses are present within the preseptal and periorbitalsoft tissues Sellar/Suprasellar Region: No sellar or suprasellar masses are present. Nocavernous sinus masses are present. Paranasal Sinuses/Nasal Cavity: Minimal mucosal thickening in theparanasal sinuses, likely inflammatory. No nasal masses are present. IMPRESSION: MRI of the brain with contrast within normal limits. No definite mass lesions or areas of abnormal signal or enhancement withinthe orbits. CRITICAL RESULT: No. COMMUNICATION: Per this written report. Drafted by Ronald Diggs MD on 05/20/2025 3:52 PM Final report signed by Ronald Diggs MD on 05/20/2025 4:00 PM Jaren Holguin DO [facility] MRI PROCEDURES Final Res ult * EKG now - STAT (adult) (05/20/2025 2:36 AM EDT) EKG DIAGNOSIS CLASS Borderline Normal MUSE ECG Ventricular Rate 79 BPM MUSE ECG Atrial Rate 79 BPM MUSE ECG WI Interval 144 ms MUSE ECG QRSD Interval 68 ms MUSE ECG QT Interval 352 ms MUSE ECG QTC Interval 403 ms MUSE ECG P [place] 48 degrees MUSE ECG R [place] 52 degrees MUSE ECG T Wave [place] 40 degrees MUSE ECG Diagnosis Sinus rhythm with sinus arrhythmia with premature ventricular or aberrantly conducted complexes MUSE ECG Diagnosis Otherwise normal ECG MUSE ECG Diagnosis MUSE ECG Diagnosis Confirmed by Leobardo Jean ([id number]) on 05/21/2025 10:33:45 PM MUSE ECG 05/20/2025 2:36 AM EDT 05/21/2025 10:33 PM EDT us Jaren Holguin DO ECG ORDERABLES Final Result MUSE ECG * ED HIV 1/2 Antibody/Antigen Screen w/Reflex to HIV 1/2 Differentiation (05/20/2025 2:36 AM EDT) Pathologist [facility] HIV 1 & 2 Antibody/Antigen Screen Non Reactive Non Reactive 05/20/2025 3:16 AM EDT [facility] Comment:Screening for HIV 1 & 2 antibodies, and P24 antigen is NONREACTIVE. No confirmatory testing is required. Blood Venous blood specimen / Unknown Venipuncture / Unknown 05/20/2025 2:36 AM EDT 05/20/2025 2:39 AM EDT Alfa Maria TEAM GUIDE LAB BLOOD ORDERABLES Final R esult [facility] [address] [place] [address] * Hepatitis C Antibody - ED (05/20/2025 2:36 AM EDT) Hepatitis C Antibody Negative Negative 05/20/2025 3:12 AM EDT HEALTHCARE LAB Blood Venous blood specimen / Unknown Venipuncture / Unknown 05/20/2025 2:36 AM EDT 05/20/2025 2:39 AM EDT Alfa Maria TEAM GUIDE LAB BLOOD ORDERABLES Final R esult [facility] [address] [place] [address] documented in this encounter Visit Diagnoses Diagnosis Dizziness- Primary Dizziness and giddiness Near syncope POTS (postural orthostatic tachycardia syndrome) Unspecified tachycardia Dizziness Dizziness and giddiness Pre-syncope Syncope and collapse Postural orthostatic tachycardia syndrome (POTS) Depression Depressive disorder, not elsewhere classified Anxiety Anxiety state, unspecified Gastroesophageal reflux disease Esophageal reflux Gilbert's syndrome Disorders of bilirubin excretion documented in this encounter Admitting Diagnoses Diagnosis Dizziness Dizziness and giddiness documented in this encounter Administered Medications Inactive Administered Medications - up to 3 most recent administrations Medication Order MAR Action Action Date Dose Rate Site acetaminophen (Tylenol) tablet 650 mg 650 mg, Oral, Every 6 hours PRN, Starting on 05/20/25 at 0222, Until 05/21/25 at 1808, Routine, Mild Plus Pain with CPOT DVPRS FLACC PAINAD NPASS NRS Milan-Arroyo Faces score of 1 or greater OR NIPS score 2 or greater, Moderate Severe Pain with CPOT score of 3 or greater OR FLACC PAINAD NPASS NRS Milan-Arroyo Faces score of 4 or greater OR DVPRS NIPS score of 5 or greater, headaches, fever busPIRone (Buspar) tablet 5 mg 5 mg, Oral, Nightly, First dose on 05/20/25 at 2100, Until Discontinued, Routine Given 05/20/2025 9:47 PM EDT 5 mg diazePAM (Valium) tablet 5 mg 5 mg, Oral, Once PRN Procedure, 1 dose, Starting on 05/20/25 at 1705, Until 05/20/25 at 1854, Routine, anxiety, give [address] scan Given 05/20/2025 6:54 PM EDT 5 mg fludrocortisone (Florinef) tablet 0.1 mg 0.1 mg, Oral, Daily, First dose on 05/20/25 at 0900, Until Discontinued, Routine Given 05/21/2025 8:27 AM EDT 0.1 mg Given 05/20/2025 9:18 AM EDT 0.1 mg gadobutrol (Gadavist) injection 7.3 mL 7.3 mL (rounded from 7.26 mL = 0.1 mL/kg 72.6 kg), Intravenous, Once in imaging, 1 dose, Starting on 05/20/25 at 0351, Until 05/20/25 at 0422, Routine, Imaging Protocol Orders Given 05/20/2025 4:22 AM EDT 7.3 mL Left Antecubital heparin (porcine) injection 5,000 Units 5,000 Units, Subcutaneous, Every 8 hours scheduled, First dose on 05/20/25 at 0600, Until Discontinued, Routine Given 05/20/2025 9:47 PM EDT 5,000 Units Right Upper Arm (Kyle k) Given 05/20/2025 6:16 AM EDT 5,000 Units R ight Upper Arm (Back) iohexol (OMNIPaque) 350 MG/ML injection 100 mL 100 mL, Intravenous, Once in imaging, 1 dose, Starting on 05/20/25 at 1850, Until 05/20/25 at 2008, Routine, Imaging Protocol Orders Given 05/20/2025 8:08 PM EDT 100 mL levothyroxine (Synthroid, Levoxyl) tablet 25 mcg 25 mcg, Oral, Daily, First dose (after last modification) on 05/20/25 at 0630, Until Discontinued, Routine Given 05/21/2025 5:00 AM EDT 25 mcg Given 05/20/2025 5:46 AM EDT 25 mcg meclizine (Antivert) tablet 25 mg 25 mg, Oral, 3 times daily PRN, Starting on 05/20/25 at 1023, Until 05/20/25 at 1658, Routine, dizziness Given 05/20/2025 1:52 PM EDT 25 mg meclizine (Antivert) tablet 25 mg 25 mg, Oral, 3 times daily, First dose (after last modification) on 05/20/25 at 1745, Until Discontinued, Routine melatonin tablet 3 mg 3 mg, Oral, Nightly PRN, Starting on 05/20/25 at 0222, Until 05/21/25 at 1808, Routine, sleep midodrine (Proamatine) tablet 5 mg 5 mg, Oral, 3 times daily, First dose on 05/20/25 at 0900, Until Discontinued, Routine ondansetron (Zofran) 4 MG/5ML solution 4 mg 4 mg, Oral, Every 6 hours PRN, Starting on 05/20/25 at 0222, Until 05/21/25 at 1808, Routine, nausea, vomiting ondansetron (Zofran) injection 4 mg 4 mg, Intravenous, Every 6 hours PRN, Starting on 05/20/25 at 0222, Until 05/21/25 at 1808, Routine, vomiting, nausea ondansetron ODT (Zofran-ODT) disintegrating tablet 4 mg 4 mg, Oral, Every 6 hours PRN, Starting on 05/20/25 at 0222, Until 05/21/25 at 1808, Routine, nausea, vomiting propranolol (Inderal) tablet 20 mg 20 mg, Oral, 2 times daily, First dose on 05/20/25 at 0245, Until Discontinued, Routine Given 05/20/2025 9:1 8 AM EDT 20 mg propranolol (Inderal) tablet 20 mg 20 mg, Oral, 2 times daily, First dose (after last modification) on 05/20/25 at 1830, Until Discontinued, Routine Given 05/21/2025 8:27 AM EDT 20 mg Given 05/20/2025 6:54 PM EDT 20 mg senna (Senokot) tablet 17.2 mg 17.2 mg (2 tablet), Oral, Nightly PRN, Starting on 05/20/25 at 0223, Until 05/21/25 at 1808, Routine, constipation sodium chloride 0.9 % flush 10 mL 10 mL, Intravenous, Every 12 hours, First dose on 05/20/25 at 0225, Until Discontinued, Routine Given 05/21/2025 1:52 AM EDT 10 mL Given 05/20/2025 1:52 PM EDT 10 mL Given 05/20/2025 5:46 AM EDT 10 mL sodium chloride 0.9 % flush 10 mL 10 mL, Intravenous, As needed, Starting on 05/20/25 at 0218, Until 05/21/25 at 1808, Routine, line care sodium chloride tablet 1 g 1 g, Oral, Daily with lunch, First dose on 05/20/25 at 1200, Until Discontinued, Routine Given 05/21/2025 12:17 P M EDT 1 g Given 05/20/2025 1:51 PM EDT 1 g documented in this encounter Active and Recently Administered Medications Times are shown in EDT. Scheduled Medication Order 05/19/2025 05/20/2025 05/21/2025 busPIRone (Buspar) tablet 5 mg 5 mg, Oral, Nightly, First dose on 05/20/25 at 2100, Until Discontinued, Routine 2146 (Given - Provider: Debra Lopez RN) fludrocortisone (Florinef) tablet 0.1 mg 0.1 mg, Oral, Daily, First dose on 05/20/25 at 0900, Until Discontinued, Routine 0918 (Given - Provider: [facility] LICENSING MANAGER) 0827 (Given - Provider: [facility] LICENSING MANAGER) gadobutrol (Gadavist) injection 7.3 mL (COMPLETED) 7.3 mL (rounded from 7.26 mL = 0.1 mL/kg 72.6 kg), Intravenous, Once in imaging, 1 dose, Starting on 05/20/25 at 0351, Until 05/20/25 at 0422, Routine, Imaging Protocol Orders 0422 (Given - Provider: Ghazala Abrams) heparin (porcine) injection 5,000 Units 5,000 Units, Subcutaneous, Every 8 hours scheduled, First dose on 05/20/25 at 0600, Until Discontinued, Routine 0547 (Canceled Entry - Provider: Debra Lopez RN)0616 (Given - Provider: Debra Lopez RN)1356 (Not Given - Provider: [facility] LICENSING MANAGER - Reason: Patient/Family/Represent ative Refused)2147 (Given - Provider: Debra Lopez RN) 0502 (Not Given - Provider: Debra Lopez RN - Reason: Patient/Family/Representat allison Refused)1527 (Not Given - Provider: [facility], [facility] - Reason: Patient/Family/Representat allison Refused) iohexol (OMNIPaque) 350 MG/ML injection 100 mL (COMPLETED) 100 mL, Intravenous, Once in imaging, 1 dose, Starting on 05/20/25 at 1850, Until 05/20/25 at 2008, Routine, Imaging Protocol Orders 2007 (Given - Provider: Areli Kimbrough) levothyroxine (Synthroid, Levoxyl) tablet 25 mcg 25 mcg, Oral, Daily, First dose (after last modification) on 05/20/25 at 0630, Until Discontinued, Routine 0546 (Given - Provider: Debra Lopez RN) 0500 (Given - Provider: Debra Lopez RN) meclizine (Antivert) tablet 25 mg 25 mg, Oral, 3 times daily, First dose (after last modification) on 05/20/25 at 1745, Until Discontinued, Routine 1802 (Not Given - Provider: Rin Rubio RN - Reason: Patient/Family/Represent ative Refused)2010 (Not Given - Provider: Debra Lopez RN - Reason: Patient/Family/Represent ative Refused) 823 (Not Given - Provider: [facility], [facility] - Reason: Patient/Family/Representat allison Refused - Comment: pt thinks that it made the dizziness worse)1600 (Canceled Entry - Provider: Automatic Discharge Provider - Comment: Automatically canceled at discontinue of medication order) midodrine (Proamatine) tablet 5 mg 5 mg, Oral, 3 times daily, First dose on 05/20/25 at 0900, Until Discontinued, Routine 0917 (Not Given - Provider: [facility], [facility] - Reason: Patient/Family/Represent ative Refused)1737 (Not Given - Provider: Rin Rubio RN - Reason: Patient/Family/Represent ative Refused)2010 (Not Given - Provider: Debra Lopez RN - Reason: Patient/Family/Represent ative Refused) 08 (Not Given - Provider: [facility], [facility] - Reason: Patient/Family/Representat allison Refused - Comment: pt doesnt want to take this with the fludocortisone)1600 (Canceled Entry - Provider: Automatic Discharge Provider - Comment: Automatically canceled at discontinue of medication order) propranolol (Inderal) tablet 20 mg (CANCELED) 20 mg, Oral, 2 times daily, First dose on 05/20/25 at 0245, Until Discontinued, Routine 0520 (Not Given - Provider: Debra Lopez RN - Reason: Patient/Family/Represent ative Refused)0918 (Given - Provider: Jacquelin Paul Serrano LPN) propranolol (Inderal) tablet 20 mg 20 mg, Oral, 2 times daily, First dose (after last modification) on 05/20/25 at 1830, Until Discontinued, Routine 1854 (Given - Provider: Jacquelin Paul Serrano LPN) 0827 (Given - Provider: Jacquelin Paul Serrano LPN)1700 (Canceled Entry - Provider: Automatic Discharge Provider - Comment: Automatically canceled at discontinue of medication order) sodium chloride 0.9 % flush 10 mL(Linked Group 1) 10 mL, Intravenous, Every 12 hours, First dose on 05/20/25 at 0225, Until Discontinued, Routine 0546 (Given - Provider: Debra Lopez RN)1352 (Given - Provider: Jacquelin Serrano LPN) 0152 (Given - Provider: Debra Lopez RN)1527 (Canceled Entry - Provider: Jacquelin Serrano LPN) sodium chloride tablet 1 g 1 g, Oral, Daily with lunch, First dose on 05/20/25 at 1200, Until Discontinued, Routine 1351 (Given - Provider: Jacquelin Paul Serrano LPN) 1217 (Given - Provider: Jacquelin Paul Serrano LPN) PRN Medication Order 05/19/2025 05/20/2025 05/21/2025 acetaminophen (Tylenol) tablet 650 mg 650 mg, Oral, Every 6 hours PRN, Starting on 05/20/25 at 0222, Until 05/21/25 at 1808, Routine, Mild Plus Pain with CPOT DVPRS FLACC PAINAD NPASS NRS Milan-Arroyo Faces score of 1 or greater OR NIPS score 2 or greater, Moderate Severe Pain with CPOT score of 3 or greater OR FLACC PAINAD NPASS NRS Milan-Arroyo Faces score of 4 or greater OR DVPRS NIPS score of 5 or greater, headaches, fever diazePAM (Valium) tablet 5 mg (COMPLETED) 5 mg, Oral, Once PRN Procedure, 1 dose, Starting on 05/20/25 at 1705, Until 05/20/25 at 1854, Routine, anxiety, give [address] scan 1854 (Given - Provider: [facility], [facility]) meclizine (Antivert) tablet 25 mg (CANCELED) 25 mg, Oral, 3 times daily PRN, Starting on 05/20/25 at 1023, Until 05/20/25 at 1658, Routine, dizziness 1352 (Given - Provider: [facility], [facility]) melatonin tablet 3 mg 3 mg, Oral, Nightly PRN, Starting on 05/20/25 at 0222, Until 05/21/25 at 1808, Routine, sleep ondansetron (Zofran) 4 MG/5ML solution 4 mg(Linked Group 2) 4 mg, Oral, Every 6 hours PRN, Starting on 05/20/25 at 0222, Until 05/21/25 at 1808, Routine, nausea, vomiting ondansetron (Zofran) injection 4 mg(Linked Group 2) 4 mg, Intravenous, Every 6 hours PRN, Starting on 05/20/25 at 0222, Until 05/21/25 at 1808, Routine, vomiting, nausea ondansetron ODT (Zofran-ODT) disintegrating tablet 4 mg(Linked Group 2) 4 mg, Oral, Every 6 hours PRN, Starting on 05/20/25 at 0222, Until 05/21/25 at 1808, Routine, nausea, vomiting senna (Senokot) tablet 17.2 mg 17.2 mg (2 tablet), Oral, Nightly PRN, Starting on 05/20/25 at 0223, Until 05/21/25 at 1808, Routine, constipation sodium chloride 0.9 % flush 10 mL(Linked Group 1) 10 mL, Intravenous, As needed, Starting on 05/20/25 at 0218, Until 05/21/25 at 1808, Routine, line care Linked Groups Order Group 1: Insert peripheral IV (CANCELED) Once, On 05/20/25 at 0219, For 1 occurrence And Saline lock IV (CANCELED) Once, On 05/20/25 at 0219, For 1 occurrence And sodium chloride 0.9 % flush 10 mLJump to med 10 mL, Intravenous, Every 12 hours, First dose on 05/20/25 at 0225, Until Discontinued, Routine And sodium chloride 0.9 % flush 10 mLJump to med 10 mL, Intravenous, As needed, Starting on 05/20/25 at 0218, Until 05/21/25 at 1808, Routine, line care Group 2: ondansetron ODT (Zofran-ODT) disintegrating tablet 4 mgJump to med 4 mg, Oral, Every 6 hours PRN, Starting on 05/20/25 at 0222, Until 05/21/25 at 1808, Routine, nausea, vomiting Or ondansetron (Zofran) injection 4 mgJump to med 4 mg, Intravenous, Every 6 hours PRN, Starting on 05/20/25 at 0222, Until 05/21/25 at 1808, Routine, vomiting, nausea Or ondansetron (Zofran) 4 MG/5ML solution 4 mgJump to med 4 mg, Oral, Every 6 hours PRN, Starting on 05/20/25 at 0222, Until 05/21/25 at 1808, Routine, nausea, vomiting documented in this encounter Additional Health Concerns Active Problems Noted Date Diagnosed Date CPM S22 PP LABOR (OBSTETRICS) 02/24/2024 Assessment Noted Time PHQ-9 Depression Total Score: 2 12/16/19 25 2:22 PM EDT A fall risk assessment has been complete d for the patient 04/04/2025 4:30 PM EDT A Body Mass Index follow-up plan has been documented for the patient 05/21/2025 3:17 PM EDT documented as of this encounter Care Teams Outdoor [employer]urs[employer] Instructor Relationship Specialty Start Date End Date Rey Wyatt MD [address] [place] [address] PCP - General 11/16/24 06/25/25 Angela Oleary, RN [facility] None Registered Nurse Cardiology 02/17/24 documented as of this encounter
--- OUTSIDE RECORDS SUMMARY | 2025-06-12 09:00 | XMS_ITS | Encounter Summary ---
Author Organization Healthcare Address [address] [id number] Care Team Providers Care Marketing Operations Coordinator Name Role Phone Angela Oleary RN Unavailable Unavailable Rey Wyatt MD Primary Care Provider [phone] Reason for Referral * Consultation (Routine) - Authorized Specialty Diagnoses / Procedures Referred By Mili t Referred To Contact Diagnoses Abdominal pain, right upper quadrant Gastroesophageal reflux disease, unspecified whether esophagitis present Other chronic gastritis without hemorrhage Silverio Tam PA [id number] [place] [address] Phone: tel: fax: Referral ID Status Reason Start Date Expiration Date V isits Requested Visits Authorized [id number] Authorized 06/12/2025 12/12/2026 1 1 * Medications - Authorized Specialty Diagnoses / Procedures Referred By Contac t Referred To Contact Silverio Tam PA [address] [facility] [address] [place] [address] Phone: tel: fax: Referral ID Status Reason Start Date Expiration Date V isits Requested Visits Authorized [id number] Authorized 06/19/2025 06/19/2026 1 1 Reason for Visit * Reason Comments Weight Loss * Consultation (Routine) - Closed Specialty Diagnoses / Procedures Referred By Contac t Referred To Contact Diagnoses Abdominal pain, epigastric Diarrhea, unspecified type Postural orthostatic tachycardia syndrome (POTS) Hematochezia Silverio Tam PA [address] [place] [address] Phone: tel: fax: Referral ID Status Reason Start Date Expiration Date Visits Re quested Visits Authorized [id number] Closed 12/15/2024 06/16/2026 1 1 Encounter Details Date Type Department Care Team (Late st Contact Info) Description 06/12/2025 9:00 AM EST [facility] [address] [place] [address] Silverio Tam PA [address] [facility] [address] [place] [address] Abdominal pain, right upper quadrant (Primary Dx); Gastroesophageal reflux disease, unspecified whether esophagitis present; Other chronic gastritis without hemorrhage; BMI 27.0-27.9,adult Social History Tobacco Use Types Packs/Day Years Used Date Smoking Tobacco: Former Cigarettes 0.3 10 2021 Passive Smoke Exposure: Never Smokeless Tobacco: [...] Recorded Patient Health Questionnaire-2 Score 0 06[facility]12[facility]20[facility] - Occupational Stress Questionnaire Answer Date [...] in a snf (including now)? No 02/09/2024 [place] Depression Scale [...] drink first t casi in the morning ([employer]) to steady your nerves or to get [...] Sign Reading Time Taken Comments Blood Pressure 110/73 06/12/2025 9:04 AM EST Pulse 80 06/12/2025 9:04 AM EST Temperature 36.6 C (97.8 F) 06/12/2025 9:04 AM EST Respiratory Rate 16 06/12/2025 9:04 AM EST Oxygen Saturation 97% 06/12/2025 9:04 AM EST Inhaled Oxygen Concentration - - Weight 76.7 kg (169 lb 1.5 oz) 06/12/2025 9:04 A M EST Height 167.6 cm (5' 6 ) 06/12/2025 9:04 AM EST Body Mass Index 27.29 06/12/2025 9:04 AM EST documented in this encounter Functional Status [...] much Not at all 06/12/2025 9:12 AM EST Missael Dowling Feeling tired or having kentrell le energy Not at all 06/12/2025 9:12 AM Missael Arreguin Poor appetite or overeating Not at all 06/12/2025 9: 12 AM EST Missael Dowling Feeling bad about yourself - or that you are a failure or have let yourself or your family down Not at all 06/12/2025 9:12 AM Missael Arreguin Trouble concentrating on thi ngs, such as reading the newspaper or watching television Not at all 06/12/2025 9:12 AM EST Missael Dowling Moving or speaking so slowly that other [...] 0 05/27 9:12 AM Missael Arreguin * How difficult have these problems made it for you to do your work, take care of things at home, or get along with other people? Answer Date of Assessment Author Not difficult at all 06/12/2025 9:12 AM Missael Regan documented as of this encounter Miscellaneous Notes * Progress Notes - Silverio Tam PA - 06/12/2025 9:00 AM EST General Hepatology Note Subjective Patient ID: Francy Delarosa is a 25 y.o. female. The following portions of the chart were reviewed this encounter and updated as appropriate: Tobacco Allergies Meds Problems Med Hx Surg Hx Fam Hx Chief Complaint Patient presents with Weight Loss History of Presenting Illness Ms. Francy eDlarosa is a 25 y.o. female presenting for follow up in the GI clinic for ongoing concerns of hyperbilirubinemia, abdominal pain and hematochezia. The patient has an additional past medical history of GERD with history of peptic ulceration, Gilbert's Syndrome and POTS. The patient is s/pcholecystectomy in July 2023. The patient was last seen in clinic in March 2025. The patient remains in a wheelchair today. She is still feeling weak but overall, and is undergoingcardiophysio therapy. She is getting vertigo multiple times weekly. She is also getting over a sickness she believes she got from her children. She is not on anything for reflux at this time. She is experiencing gastritis like symptoms almost daily. Her bowel habits are fluctuating between looser and then will adjust to more solid at times; she denies bleeding in the stool. She reports RUQ pain that lasts for 3-4 days at a time. She states it comes on out of no where; stabbing pain. She has a pending US of the liver and RUQ that hasn't been completed. It is sometimes relative to her eating. She denies relationships between the pain and her bowel movements. She adjusted to hypothyroidism and is now on levothyroxine. Patient denies dysphagia or chest pain. No lower leg swelling. No vomiting or diarrhea. No hematemesis or melena reported. No confusion or memory changes. No fever or chills. No unintentional weight changes. No jaundice or icterus. No NSAID use. No tobacco, alcohol or illicit drug use reported. Thepatient states she has crohn's in her family in her brother and niece. EGD 04/18/2025: The esophagus, stomach and duodenum appeared normal. Performed random biopsy to rule out H. pylori. Biopsy showed some metaplasia and reactive gastritis. Colonoscopy 04/18/2025: Grade 1 hemorrhoids. Otherwise normal exam; no biopsies. Repeat at age 43 yo. Past Medical History Past Medical History: Diagnosis Date Abnormal ECG Anemia Anxiety Depression Eczema Food intolerance GERD (gastroesophageal reflux disease) Gilbert syndrome 2019 Headache, tension-type Hypertension Hyperthyroidism auto immune Hypothyroidism Insomnia Liver disease Migraine Peptic ulceration POTS (postural orthostatic tachycardia syndrome) 01/2024 Severe malnutrition (CMS/HCC) 03/14/2024 ~16% wt loss x 4m; weight loss in setting of POTS, decreased oral intake, Syncope Vertigo Surgical History Past Surgical History: Procedure Laterality Date CHOLECYSTECTOMY 07/2023 DILATION AND CURETTAGE OF UTERUS HAND SURGERY 07/2022 OTHER SURGICAL HISTORY 2001,2023,2022 Tonsil removal, gallbladder temoval and hand surgery TONSILLECTOMY 2002 Family History Family History Problem Relation Name Age of Onset Autoimmune disease Mother Crystal craft Depression Mother Crystal craft 10 - 19 Clotting disorder Mother Crystal craft Immunodeficiency Mother Crystal craft Thyroid disease Mother Crystal malikft Abnormal EKG Mother Avril fagan Heart failure [...] min Stress: No Stress Concern Present (02/22/2024) [employer] [facility] - Occupational Stress Questionnaire Feeling of Stress : Not at all Social Connections: Moderately Isolated (02/22/2024) Social Connection and Isolation Panel Frequency of Communication with Friends and Family: More than three times a week Frequency of Social Gatherings with Friends and Family: Once a week Attends Jain Services: Never Active Member of Clubs or [...] Medications Medication Instructions Blood Glucose Monitoring Suppl (OneTouch Verio Reflect) w/Device kit busPIRone (BUSPAR) 5 mg, Oral, Nightly, Takes at 8PM cholecalciferol (Vitamin D-3) 50 MCG (2000 UT) capsule cholecalciferol (Vitamin D3) 25 MCG (1000 UT) tablet As needed dexlansoprazole (DEXILANT) 60 mg, Oral, Daily, Do not crush or chew. fludrocortisone (FLORINEF) 0.1 mg, Oral, Daily fluticasone (Flonase) 50 MCG/ACT nasal spray 1 spray, Daily ketoconazole (NIZOral) 2 % cream As needed Lancets (OneTouch Delica Plus [id number]) misc levothyroxine (SYNTHROID, LEVOXYL) 25 mcg, Daily meclizine (ANTIVERT) 12.5 mg, Oral, 3 times daily PRN midodrine (PROAMATINE) 5 mg, Oral, 3 times daily PRN NON FORMULARY 1,000 mg, Daily ondansetron ODT (ZOFRAN-ODT) 8 mg, Oral, Every 8 hours PRN OneTouch Verio test strip 1 each, As needed propranolol (INDERAL) 20 mg, Oral, 3 times daily pyridostigmine (MESTINON) 30 mg, Oral, 2 times daily simethicone (MYLICON) 80 mg, Every 6 hours PRN sodium chloride 1 g, Daily Tylenol 650 mg, Oral, Every 6 hours PRN Ventolin HFA 108 (90 Base) MCG/ACT inhaler Inhale 2 puffs 1 time as needed for shortness of breath. Allergies Allergies Allergen Reactions Amoxicillin-Pot Clavulanate Other [...] document in the comment field Heart palpitations Vaccinations Immunization History Administered Date(s) Administered DTaP, Unspecified 04/26/2002 HPV, Quadrivalent 05/29/2011 Hep A, ped/adol, 2 dose 02/20/2010, 11/21/2010 IPV 04/26/2002 Influenza, injectable, quadrivalent, preservative free 04/29/2023 Jasmine COVID-19 Vaccine (Blue Cap) 18+ 02/21/2021 MMR 04/26/2002 Tdap 02/20/2010 Varicella 07/06/2001 Vital Signs Visit Vitals BP 110/73 Pulse 80 Temp 36.6 ??C (97.8 ??F) (Oral) Resp 16 Ht 1.676 m (5' 6 ) Wt 76.7 kg (169 lb 1.5 oz) LMP 05/20/2025 (Exact Date) SpO2 97% BMI 27.29 kg/m?? OB Status Having periods Smoking Status Former BSA 1.89 m?? Physical Exam General - well nourished [...] HgB Lab Results Component Value Date/Time HGB 13.2 05/20/2025 0526 HGB 12.6 12/15/2024 1529 WBC Lab Results Component Value Date/Time WBC 6.99 05/20/2025 0526 WBC 5.38 12/15/2024 1529 PLT Lab Results Component Value Date/Time PLT 184 05/20/2025 0526 PLT 311 12/15/2024 1529 A1c No results found for: HGBA1C Lab Results Component Value Date/Time AST 19 05/20/2025 0526 ALT 13 05/20/2025 05 ALKPHOS 56 05/20/2025 05 BILITOT 1.1 05/20/2025 05 INR 1.0 12/15/2024 1529 PLT 184 05/20/2025 05 ALBUMIN 4.2 05/20/2025525 HEPBSAG Negative 04/18/2024 1013 HECG Negative 05/20/2025 0236 FERRITIN 6 (L) 02/16/2025 1417 CREATININE 0.69 05/20/2025525 HGB 13.2 05/20/2025 05 TSH 1.83 01/17/2025 0847 Assessment and Plan Problem List Items Addressed This Visit Gastroesophageal reflux disease Relevant Medications dexlansoprazole (Dexilant) [address] capsule Other Relevant Orders Follow Up GI Other Visit Diagnoses Abdominal pain, right upper quadrant - Primary Relevant Orders Follow Up GI Other chronic gastritis without hemorrhage Relevant Medications dexlansoprazole (Dexilant) [address] capsule Other Relevant Orders Follow Up GI BMI 27.0-27.9,adult #GERD #Nausea #Abdominal pain #History of Peptic Ulceration - Patient reports ongoing but improved reflux and nausea. No vomiting. - Appetite has dropped at times; usually secondary to POTS episodes, and other acute illnesses. - Previous trials of PPI worsened symptoms per patient report. - Food allergy testing negative per immunology - H Pylori stool study negative - EGD 04/18/2025: The esophagus, stomach and duodenum appeared normal. Performed random biopsy to rule out H. pylori. Biopsy showed some metaplasia and reactive gastritis. - Start Dexilant 60mg daily #RUQ pain #Elevated T-biliruin #Gilbert's Syndrome #S/p cholecystectomy - Patient has elevated total bilirubin in the setting of previously diagnosed Gilbert's disease. - Tbili is currently WNL. - No jaundice or icterus reported or visible on exam today. - US Liver Screen is pending #Healthcare Maintenance Immunity to Hepatitis A- NA Immunity to Hepatitis B- No immunity HBsAg - Negative EGD 04/18/2025: The esophagus, stomach and duodenum appeared normal. Performed random biopsy to rule out H. pylori. Biopsy showed some metaplasia and reactive gastritis. Colonoscopy 04/18/2025: Grade 1 hemorrhoids. Otherwise normal exam; no biopsies. Repeat at age 43 yo. RTC 3 Months with General GI Provider documented in this encounter Plan of Treatment Upcoming Encounters Date Type Department Care Team (Late st Contact Info) Description 08/08/2025 1:20 PM EST Office Visit [facility] [address] [place] [id number] Antoine Manrique MD [address] [place], [place] [id number] 08/28/2025 10:40 AM EST Office Visit [facility] [place] [address] [place] [address] Courtney Torres MD [address] [place] [address] 09/12/2025 12:20 PM EST Office Visit [facility] [address] [place] [address] Jessica Mcdonnell PA [address] [place] [address] 11/07/2025 2:00 PM EDT Office Visit [facility] [address], [address] [place] [phone] Maddie Mtz PA [address] [place] [address] Scheduled Referrals Name Type Priority Associated Diagnoses Orde r Schedule Follow Up GI Outpatient Referral Routine Abdominal pain, right upper quadrant Gastroesophageal reflux disease, unspecified whether esophagitis present Other chronic gastritis without hemorrhage Expected: 09/12/2025, Expires: 07/12/2026 documented as of this encounter Goals Goal Patient Goal Type Associated Problems Recent Progress Patient-Stated? Author Delayed Delivery Care Plan CPM S22 PP LABOR (OBSTETRICS) No Open Scheduling, Background documented as of this encounter Visit Diagnoses Diagnosis Abdominal pain, right upper quadrant- Primary Gastroesophageal reflux disease, unspecified whether esophagitis present Other chronic gastritis without hemorrhage BMI 27.0-27.9,adult documented in this encounter Additional Health Concerns Active Problems Noted Date Diagnosed Date CPM S22 PP LABOR (OBSTETRICS) 02/24/2024 Assessment Noted Time PHQ-9 Depression Total Score: 0 06/12/20 9:12 AM EST A fall risk assessment has been complete d for the patient 04/04/2025 4:30 PM EDT A Body Mass Index follow-up plan has been documented for the patient 06/12/2025 9:45 AM EST documented as of this encounter Care Teams Marketing Operations Coordinator Relationship Specialty Start Date End Date Rey Wyatt MD [address] [place] [address] PCP - General 11/16/24 06/25/25 Angela Oleary, RN [facility] None Registered Nurse Cardiology 02/17/24 documented as of this encounter
--- OUTSIDE RECORDS SUMMARY | 2025-06-15 14:40 | XMS_ITS | Encounter Summary ---
Author Organization Healthcare Address [address] [place] [address] Care Team Providers Care Business Systems Administrator Name Role Phone Angela Oleary RN Unavailable Unavailable Rey Wyatt MD Primary Care Provider Reason for Visit * Reason Comments Cough Have been coughing u p green phlegm and mucus for 9-10 days - Entered by patient Encounter Details Date Type Department Care Team (Late st Contact Info) Description 06/15/2025 2:40 PM EST Office Visit [facility] [address], [address] [place] [address] Alena Esquivel, VETERINARY SURGERY TECHNOLOGIST [address] [facility] [address] [place] [address] Bacterial upper respiratory infection (Primary Dx); Shortness of breath Social History Tobacco Use Types Packs/Day Years Used Date Smoking Tobacco: Former Cigarettes 0.3 10 2 - 2021 Passive Smoke Exposure: Current Smokeless Tobacco: Former Tobacco Cessation:Counseling Given: No Comments:History of vaping after cigarettes. Stopped when she found out she was Alcohol Use Standard Drinks/Week Comments Never 0 (1 standard drink = 0.6 oz pur e alcohol) Social Connection and Isolation Panel Answer Date Recorded In a typical week, how many times do you talk on the phone with family, friends, or neighbors? More than three times a week 02/22/2024 How often do you get togethe r with friends or relatives? Once a week 02/22/2024 How often do you attend [facility] or hinduism services? Never 02/22/2024 Do you [...] Recorded Patient Health Questionnaire-2 Score 0 06/12/2025 [facility] - [...] exercise at this level? 0 min 02/22/2024 [place] Depression Scale Answer Date Recorded [place] Depression Scale Total 6 08/08/2024 The thought of harming myself has occurred to me . Never 08/08/2024 PHQ-9 Answer Date Recorded Patient Health Questionnaire-9 Score 0 06/12/2025 Humiliation, Afraid, Rape, and Kick questionnair e Answer Date Recorded Within the last year, have y ou been afraid of your partner or ex-partner? No 06/15/2025 Within the last year, have y ou been humiliated or emotionally abused in other ways by your partner or ex-partner? No Within the last year, have y ou been kicked, hit, slapped, or otherwise physically hurt by your partner or ex-partner? No 06/15/2025 Within the last year, have y ou been raped or forced to have any kind of sexual activity by your partner or ex-partner? No 06/15/2025 AUDIT-C Answer Date Recorded Q1: How often do you have a drink containing alcohol? Never 06/15/2025 Q2: How many drinks containi ng alcohol do you have on a typical day when you are drinking? Patient does not drink Q3: How often do you have si x or more drinks on one occasion? Never 06/15/2025 Hunger Vital Sign Answer Date Recorded Within the past 12 months, y ou worried that your food would run out before you got the money to buy more. Never true 06/15/20 Within the past 12 months, t he food you bought just didn't last and you didn't have money to get more. Never true 06/15/2025 PRAPARE - Transportation Answer Date Re corded In the past 12 months, has l ack of transportation kept you from medical appointments or from getting medications? No 05/28 In the past 12 months, has l ack of transportation kept you from meetings, work, or from getting things needed for daily living? No 06/15/2025 Housing Stability Vital Sign Answer Rodrigo e Recorded In the last 12 months, was t here a time when you were not able to pay the mortgage or rent on time? No 06/15/2025 In the past 12 months, how m any times have you moved where you were living? 1 06/15/2025 At any time in the past 12 m [facility] were you homeless or living in a fdc (including now)? No 06/15/2025 [facility] Utilities Answer Date Recorded In the past 12 months has th e electric, gas, oil, or water company threatened to shut off services in your home? No 06/15/2025 CAGE ASSESSMENT Answer Date Recorded Cage unable [...] drink first t casi in the morning (EYE-RN INTERVENTIONAL) to steady your nerves or to get rid of a hangover? 0 07/16/2024 CAGE Questionnaire Score 0 024 Comments No Sex and Gender Information Value Date Recorded Sex Assigned at Not on file Legal Sex Female 7:36 PM EDT Gender Identity Not on file Sexual Orientation Not on file documented as of this encounter Last Filed Vital Signs Vital Sign Reading Time Taken Comments Blood Pressure 112/68 06/15/2025 2:32 PM EST Pulse 71 06/15/2025 2:32 PM EST Temperature 36.8 C (98.2 F) 06/15/2025 2:32 PM EST Respiratory Rate 18 06/15/2025 2:32 PM EST Oxygen Saturation 99% 06/15/2025 2:32 PM EST Inhaled Oxygen Concentration - - Weight 76.7 kg (169 lb) 06/15/2025 2:32 PM EST Height 167.6 cm (5' 6 ) 06/15/2025 2:32 PM EST Body Mass Index 27.28 06/15/2025 2:32 PM EST documented in this encounter Functional Status * AUDIT-C Score Answer Date of Assessment Author 0 06/15/2025 3:39 PM Karla Matos RN * Question Answer Date of Assessment Author Q1: How often do you have a drink containing alcohol? Never 06/15/2025 3:39 PM Karla Matos RN Q2: How many drinks containing alcohol do you have on a typical day when you are drinking? Patient does not drink 06/15/2025 3:39 PM Karla Matos RN Q3: How often do you have six or more drinks on one occasion? Never 06/15/2025 3:39 PM Karla Matos RN documented as of this encounter Miscellaneous Notes * Progress Notes - Alena Esquivel APRN - 06/15/2025 2:40 PM EST Subjective Patient ID: Francy Delarosa is a 25 y.o. female. Chief Complaint Patient presents with Cough Have been coughing up green phlegm and mucus for 9-10 days - Entered by patient HPI Patient presents to [facility] with complaints of a cough that initially started about 9 days ago. Cough has been productive, sputum green in color. Reports associated shortness of breath, no wheezing. Experiencing associated nasal congestion. Denies any fevers. Has tried OTC remedies without relief. Past Medical History[1] Surgical History[2] Family History[3] Social Connections: Moderately Isolated (02/22/2024) Social Connection and Isolation Panel Frequency of Communication with Friends and Family: More than three times a week Frequency of Social Gatherings with Friends and Family: Once a week Attends Spiritism Services: Never Active Member of Clubs or Organizations: No Attends Club or Organization Meetings: Never Marital Status: Current Medications[4] Allergies[5] Immunization History Administered Date(s) Administered DTaP, Unspecified 04/26/2002 HPV, Quadrivalent 05/29/2011 Hep A, ped/adol, 2 dose 02/20/2010, 11/21/2010 IPV 04/26/2002 Influenza, injectable, quadrivalent, preservative free 04/29/2023 Jasmine COVID-19 Vaccine (Blue Cap) 18+ 02/21/2021 MMR 04/26/2002 Tdap 02/20/2010 Varicella 07/06/2001 The following portions of the chart were reviewed this encounter and updated as appropriate: Allergies Review of Systems Constitutional: Negative for fever. HENT: Positive for congestion and postnasal drip. Negative for ear discharge, ear pain, sore throatand trouble swallowing. Respiratory: Positive for cough and shortness of breath. Negative for wheezing. Gastrointestinal: Negative. Neurological: Negative. Visit Vitals BP 112/68 (BP Location: Left arm, Patient Position: Sitting) Pulse 71 Temp 36.8 ??C (98.2 ??F) (Oral) Resp 18 Ht 1.676 m (5' 6 ) Wt 76.7 kg (169 lb) LMP 05/20/2025 (Exact Date) SpO2 99% BMI 27.28 kg/m?? OB Status Having periods Smoking Status Former BSA 1.89 m?? Objective Physical Exam Vitals reviewed. Constitutional: General: She is not in acute distress. Appearance: Normal appearance. She is not ill-appearing or toxic-appearing. HENT: Head: Normocephalic. Right Ear: Tympanic membrane, ear canal and external ear normal. Left Ear: Tympanic membrane, ear canal and external ear normal. Nose: Congestion present. Mouth/Throat: Mouth: Mucous membranes are moist. Pharynx: Oropharynx is clear. No oropharyngeal exudate or posterior oropharyngeal erythema. Cardiovascular: Rate and Rhythm: Normal rate and regular rhythm. Heart sounds: Normal heart sounds. Pulmonary: Effort: Pulmonary effort is normal. No respiratory distress. Breath sounds: Normal breath sounds. No stridor. No wheezing, rhonchi or rales. Comments: Able to speak full sentences without becoming breathless. intermittent cough heard on exam Skin: General: Skin is warm and dry. Neurological: General: No focal deficit present. Mental Status: She is alert and oriented to person, place, and time. Psychiatric: Mood and Affect: Mood normal. Behavior: Behavior normal. Thought Content: Thought content normal. Judgment: Judgment normal. Assessment/Plan Diagnoses and all orders for this visit: Bacterial upper respiratory infection - doxycycline (Vibramycin) 100 MG capsule; Take 1 capsule by mouth 2 times a day for 7 days. Take with at least 8 ounces (large glass) of water, do not lie down for 30 minutes after -Given history and physical exam findings, treating as bacterial infection. -Finish entire course of antibiotics as prescribed even if you start feeling better. -Continue to push fluids to maintain hydration. -Saline irrigation (Neti pot) or nose drops as needed. Sleep with head of bed elevated. -Avoid exposure to cigarette smoke or fumes. -Return to clinic if no improvement after 72 hours of antibiotic therapy or no resolution of symptoms after antibiotics. -Symptoms should start to improve within 72 hours of antibiotic therapy and complete resolution within 10-14 days. Shortness of breath - XR Chest 2 Views; Future -Lungs clear today in clinic, however, given report of SOB, CXR obtained today in clinic. -Will be notified of results of testing and provide additional treatment if needed based on results [1] Past Medical History: Diagnosis Date Abnormal ECG Anemia Anxiety Depression Eczema Food intolerance GERD (gastroesophageal reflux disease) Gilbert syndrome 2019 Headache, tension-type Hypertension Hyperthyroidism auto immune Hypothyroidism Insomnia Liver disease Migraine Peptic ulceration POTS (postural orthostatic tachycardia syndrome) 01/2024 Severe malnutrition (CMS/HCC) 03/14/2024 ~16% wt loss x 4m; weight loss in setting of POTS, decreased oral intake, Syncope Vertigo [2] Past Surgical History: Procedure Laterality Date CHOLECYSTECTOMY 07/2023 DILATION AND CURETTAGE OF UTERUS HAND SURGERY 07/2022 OTHER SURGICAL HISTORY 2001,2023,2022 Tonsil removal, gallbladder temoval and hand surgery TONSILLECTOMY 2001 [3] Family History Problem Relation [...] Hx Malig Hyperthermia Neg Hx [4] Current Outpatient Medications Medication Sig Dispense Refill acetaminophen (Tylenol) 325 MG capsule Take 2 capsules (650 mg) by mouth every 6 (six) hours if needed for mild pain. 30 capsule 1 Blood Glucose Monitoring Suppl ([employer] Verio Reflect) w/Device kit busPIRone (Buspar) 5 MG tablet Take 1 tablet (5 mg) by mouth every night. Takes at 8PM 30 tablet 0 cholecalciferol (Vitamin D3) 25 MCG (1000 UT) tablet as needed. Lancets ([employer] Delica Plus [id number]) misc levothyroxine (Synthroid, Levoxyl) 25 MCG tablet Take 1 tablet by mouth daily. meclizine (Antivert) 25 MG tablet Take 0.5 tablets by mouth 3 times a day as needed for dizziness (Dizziness). 90 tablet 3 midodrine (Proamatine) 5 MG tablet Take 1 tablet by mouth 3 times a day as needed (hypotension). 90tablet 3 ondansetron ODT (Zofran-ODT) 4 MG disintegrating tablet Dissolve 2 tablets on the tongue every 8 hours as needed for nausea or vomiting. 20 tablet 5 OneTouch Verio test strip 1 each by Other route as needed. propranolol (Inderal) 20 MG tablet Take 1 tablet by mouth 3 (three) times a day. 90 tablet 3 pyridostigmine (Mestinon) 30 MG tablet Take 1 tablet by mouth 2 times a day. 60 tablet 1 simethicone (Mylicon) 80 MG chewable tablet Chew 1 tablet every 6 hours as needed. sodium chloride 1 g tablet Take 1 tablet by mouth daily. cholecalciferol (Vitamin D-3) 50 MCG (1999) capsule (Patient not taking: Reported on 06/12/2025) dexlansoprazole (Dexilant) [address] capsule Take 1 capsule by mouth daily. Do not crush or chew. 30capsule 5 fludrocortisone (Florinef) 0.1 MG tablet Take 1 tablet by mouth daily. (Patient not taking: Reported on 06/15/2025) 30 tablet 3 fluticasone (Flonase) 50 MCG/ACT nasal spray Administer 1 spray into each nostril daily. (Patient not taking: Reported on 06/12/2025) ketoconazole (NIZOral) 2 % cream as needed. NON FORMULARY Take 1,000 mg by mouth daily. Sodium chloride tablets 1000 mg once daily by mouth (Patient not taking: Reported on 06/12/2025) Ventolin HFA 108 (90 Base) MCG/ACT inhaler Inhale 2 puffs 1 time as needed for shortness of breath.(Patient not taking: Reported on 06/12/2025) Current Facility-Administered Medications Medication Dose Route Frequency Provider Last Rate Last Admin sodium chloride 0.9 % infusion 250 mL 250 mL Intravenous Once Shalonda Davies APRN [5] Allergies Allergen Reactions Amoxicillin-Pot Clavulanate Other [...] document in the comment field Heart palpitations documented in this encounter Plan of Treatment Upcoming Encounters Date Type Department Care Team (Late st Contact Info) Description 08/08/2025 1:20 PM EST Office Visit [facility] [address] [place] [id number] Antoine Manrique MD [address] [place] [id number] 08/28/2025 10:40 AM EST Office Visit [facility] [place] [address], [address] [place] [address] Courtney Torres MD [address] [place] [address] 09/12/2025 12:20 PM EST Office Visit [facility] [address] [place] [address] Jessica Mcdonnell PA [address] [place] [address] 11/07/2025 2:00 PM EDT Office Visit [facility] [address] [place] [address] Maddie Mtz PA [address] [place] [address] documented as of this encounter Goals Goal Patient Goal Type Associated Problems Recent Progress Patient-Stated? Author Delayed Delivery Care Plan CPM S22 PP LABOR (OBSTETRICS) No Open Scheduling, Background documented as of this encounter Results * XR Chest 2 Views (06/15/2025 3:30 PM EST) Anatomical Region Laterality Modality Chest Digital Radiogra phy Impressions 06/15/2025 3:37 PM EST No acute cardiopulmonary findings. CRITICAL RESULT: No. COMMUNICATION: Per this written report. By electronically signing this report, I, the attending physician, attest that I have personally reviewed the images/data for the above examination(s) and agree with the final edited report. Drafted by Daniele Orourke MD on 06/15/2025 3:32 PM Final report signed by Heather Esquivel MD on 06/15/2025 3:37 PM Narrative 06/15/2025 3:37 PM EST CLINICAL INDICATION: Cough. Shortness of breath TECHNIQUE: XR CHEST 2 VIEWS COMPARISON: Chest radiograph 11/20/2024 FINDINGS: Cardiomediastinal silhouette is normal and stable. No consolidation. No pleural effusion or pneumothorax. Mild anterior wedging midthoracic vertebral body. Procedure Note Heather Esquivel MD - 06/15/2025 CLINICAL INDICATION: Cough. Shortness of breath TECHNIQUE: XR CHEST 2 VIEWS COMPARISON: Chest radiograph 11/20/2024 FINDINGS: Cardiomediastinal silhouette is normal and stable. No consolidation. Nopleural effusion or pneumothorax. Mild anterior wedging midthoracicvertebral body. IMPRESSION: No acute cardiopulmonary findings. CRITICAL RESULT: No. COMMUNICATION: Per this written report. By electronically signing this report, I, the attending physician, jose I have personally reviewed the images/data for the aboveexamination(s) and agree with the final edited report. Drafted by Daniele Orourke MD on 06/15/2025 3:32 PM Final report signed by Heather Esquivel MD on 06/15/2025 3:37 PM us Alena Esquivel VETERINARY SURGERY TECHNOLOGIST IMG XR PROCEDURES Final Res ult documented in this encounter Visit Diagnoses Diagnosis Bacterial upper respiratory infection- Primary Shortness of breath Bacterial upper respiratory infection Shortness of breath documented in this encounter Additional Health Concerns Active Problems Noted Date Diagnosed Date CPM S22 PP LABOR (OBSTETRICS) 02/24/2024 Assessment Noted Time PHQ-9 Depression Total Score: 0 06/12/20 9:12 AM EST A fall risk assessment has been complete d for the patient 04/04/2025 4:30 PM EDT A Body Mass Index follow-up plan has been documented for the patient 06/15/2025 3:33 PM EST documented as of this encounter Care Teams Business Systems Administrator Relationship Specialty Start Date End Date Rey Wyatt MD [address] [facility] [address] [place] [id number] PCP - General 11/16/24 06/25/25 Angela Oleary, RN [facility] None Registered Nurse Cardiology 02/17/24 documented as of this encounter
--- OUTSIDE RECORDS SUMMARY | 2025-06-15 15:23 | XMS_ITS | Encounter Summary ---
Author Organization Healthcare Address [address] [place] [address] Care Team Providers Care Bridge Teacher Name Role Phone Angela Oleary RN Unavailable Unavailable Rey Wyatt MD Primary Care Provider [phone] Encounter Details Date Type Department Care Team (Latest Contact Info) Description 06/15/2025 3:23 PM EST - 06/15/2025 11:59 PM [facility] Hospital Encounter [facility] [address], [address] [place] [address] Bacterial upper respiratory infection; Shortness of breath Discharge Disposition: Home or Self Care Social History Tobacco Use Types Packs/Day Years Used Date Smoking Tobacco: Former Cigarettes 0.3 10 2 - 2021 Passive Smoke Exposure: Current Smokeless Tobacco: Former Comments:History of vaping a [...] Recorded Patient Health Questionnaire-2 Score 0 06/12/2025 [facility] - [facility]ational Stress Questionnaire Answer [...] exercise at this level? 0 min 02/22/2024 [place] Depression Scale Answer Date Recorded [place] Depression Scale Total 6 08/08/2024 The [...] money to buy more. Never true 06/15/20 25 Within the past 12 months, t he [...] any time in the past 12 m [facility], were you homeless or living in a residential (including now)? No 06/15/2025 [facility] Utilities Answer Date Recorded In the past [...] drink first t casi in the morning (EYE-ISSUER) to steady your nerves or to get rid of a hangover? 0 07/16/2024 CAGE Questionnaire Score 0 024 Comments No Sex and Gender Information Value Date Recorded Sex Assigned at Not on file Legal Sex Female 7:36 PM EDT Gender Identity Not on file Sexual Orientation Not on file documented as of this encounter Functional Status * AUDIT-C Score [...] Matos RN documented as of this encounter Medications at Time of Discharge acetaminophen (Tylenol) 325 MG capsule Take 2 capsules (650 mg) by mouth every 6 (six) hours if needed for mild pain. 30 capsule 1 07/18/2024 Blood Glucose Monitoring Suppl ([employer] Verio Reflect) w/Device kit 04/14/2024 busPIRone (Buspar) 5 MG tablet Take 1 tablet (5 mg) by mouth every night. Takes at 8PM 30 tablet 08/16/2024 cholecalciferol (Vitamin D-3) 50 MCG (2000 UT) capsule 10/25/2024 cholecalciferol (Vitamin D3) 25 MCG (1000 UT) tablet as needed. 11/07/2024 dexlansoprazole (Dexilant) [address] capsule Take 1 capsule by mouth daily. Do not crush or chew. 30 capsule 5 06/12/2025 fludrocortisone (Florinef) 0.1 MG tabletIndications:P helen's disease Take 1 tablet by mouth daily. 30 tablet 3 11/16/2024 fluticasone (Flonase) 50 MCG/ACT nasal spray Administer 1 spray into each nostril daily. 12/08/2024 ketoconazole (NIZOral) 2 % cream as needed. Lancets ([employer] Delica Plus [id number]) [facility] 04/14/2024 levothyroxine (Synthroid, Levoxyl) 25 MCG tablet [...] as needed for shortness of breath. 10/05/2024 doxycycline (Vibramycin) 100 MG capsuleIndications: Bacterial upper respiratory infection Take 1 capsule by mouth 2 times a day for 7 days. Take with at least 8 ounces (large glass) of water, do not lie down for 30 minutes after 14 capsule 06/15/2025 5 desvenlafaxine succinate er (Pristiq) 25 MG 24 hr tablet Take 1 tablet by mouth daily. 05/31/2025 5 documented as of this encounter Plan of Treatment Upcoming Encounters Date Type Department Care Team (Late st Contact Info) Description 08/08/2025 1:20 PM EST Office Visit [facility] Medicine Specialties [address] [place] [address] Antoine Manrique MD [address] [place] [address] 08/28/2025 10:40 AM EST Office Visit [facility] [place] [address], [address] [place] [address] Courtney Torres MD [address] [place] [address] 09/12/2025 12:20 PM EST Office Visit [facility] [address] [place] [address] Jessica Mcdonnell PA [address] [place] [address] 11/07/2025 2:00 PM EDT Office Visit [facility] [address] [place] [address] Maddie Mtz PA [address] [place] [address] documented as of this encounter Goals Goal Patient Goal Type Associated Problems Recent Progress Patient-Stated? Author Delayed Delivery Care Plan CPM S22 PP LABOR (OBSTETRICS) No Open Scheduling, Background documented as of this encounter Procedures Procedure Name Priority Date/Time Associated Diagnosis Comments XR CHEST 2 VIEWS STAT 06/15/2025 3:30 PM EST Bacterial upper respiratory infection Shortness of breath documented in this encounter Results * XR Chest 2 [...] signing this report, I, the attending physician, attestthat I have personally reviewed the images/data for the aboveexamination(s) and agree with the final edited report. Drafted by Daniele Orourke MD on 06/15/2025 3:32 PM Final report signed by Heather Esquivel MD on 06/15/2025 3:37 PM us Alena Esquivel VIDEO SYSTEMS ENGINEER IMG XR PROCEDURES Final Res ult documented in this encounter Visit Diagnoses Diagnosis Bacterial upper respiratory infection Shortness of breath [...] documented as of this encounter Care Teams Bridge Teacher Relationship Specialty Start Date End Date Rey Wyatt MD [address] [facility] [address] [place] [id number] PCP - General 11/16/24 06/25/25 Angela Oleary, RN [facility] None Registered Nurse Cardiology 02/17/24 documented as of this encounter
--- OUTSIDE RECORDS SUMMARY | 2025-06-19 08:00 | XMS_ITS | Encounter Summary ---
Author Organization [facility] Address [address] [place] [address] Care Team Providers Care Director Of Front Office Name Role Phone Angela Oleary RN Unavailable Unavailable Rey Wyatt MD Primary Care Provider [phone] Reason for Referral * Consultation (Routine) - Authorized Specialty Diagnoses / Procedures Referred By Contac t Referred To Contact Diagnoses POTS (postural orthostatic tachycardia syndrome) Courtney Torres MD [address] [place] [address] Phone: tel: fax: Referral ID Status Reason Start Date Expiration Date V isits Requested Visits Authorized [id number] Authorized 06/19/2025 12/19/2026 1 1 * Medications - Authorized Specialty Diagnoses / Procedures Referred By Contac t Referred To Contact Courtney Torres MD [address] [facility] [address] [place] [address] Phone: tel: fax: Referral ID Status Reason Start Date Expiration Date V isits Requested Visits Authorized [id number] Authorized 06/20/2025 06/19/2026 1 1 Encounter Details Date Type Department Care Team ([facility] st Contact Info) Description 06/19/2025 8:00 AM EST Office Visit [facility] [address], [address] [place] [address] Courtney Torres MD [address] [facility] [address] [place] [address] POTS (postural orthostatic tachycardia syndrome) (Primary Dx) Social History Tobacco Use Types Packs/Day Years Used Date Smoking Tobacco: Former Cigarettes 0.3 10 2 012 2021 Passive Smoke Exposure: Current Smokeless Tobacco: Former Tobacco Cessation:Counseling Given: Not [...] Recorded Patient Health Questionnaire-2 Score 0 06/12/2025 [facility] - [...] exercise at this level? 0 min 02/22/2024 [place] Depression Scale Answer Date Recorded [place] Depression Scale Total 6 08/08/2024 The thought [...] any time in the past 12 m [facility], were you homeless or living in a assisted (including now)? No 06/15/2025 [facility] Utilities Answer Date Recorded In the past 12 months has th [employer] electric, gas, oil, or water company threatened [...] drink first t casi in the morning (EYE-HEAD USHER) to steady your nerves or to get [...] Sign Reading Time Taken Comments Blood Pressure 109/80 06/19/2025 7:49 AM EST Pulse 79 06/19/2025 7:49 AM EST Temperature - - Respiratory Rate - - Oxygen Saturation - - Inhaled Oxygen Concentration - - Weight 76.7 kg (169 lb) 06/19/2025 7:49 AM EST Height 167.6 cm (5' 6 ) 06/19/2025 7:49 AM EST Body Mass Index 27.28 06/19/2025 7:49 AM EST documented in this encounter Miscellaneous Notes * Progress Notes - Courtney Torres MD - 06/19/2025 8:00 AM EST Images from the original note were not included. Telehealth Visit Patient Verification Patient identity has been confirmed using name and date of ? Yes Authorizations and Agreements/Telemedicine Consent sent and consent confirmed? Yes Patient Location: Patient's Home Patient confirms they are physically located in [place]? Yes If the patient is not physically located in [place], the provider has confirmed with Legal thatthe provider is authorized to provide services in patient's stated location? N/A Provider Location: [facility] Facility Audio and video or audio only? Audio and video This clinical encounter was performed utilizing a real-time telehealth video and audio connection, performed with the originating site at [facility]. A clinical staff member was present with the patient to assist patient with the visit. Verbal consent to participate in the video visit was obtained. I discussed the nature of our telehealth visit and that I would evaluate the patient and recommend diagnostics and treatments based on my assessment. Our sessions are not being recorded and personal health information is protected. CARDIOLOGY CLINIC FOLLOW UP PATIENT NOTE Chief Complaint: Follow Up Subjective: Francy Delarosa is a 25 y.o. female has been previously seen in clinic. Ongoing debilitating (remains in wheelchair) POTS symptoms post-, exacerbated in setting of recent thyroid storm. Prior ECHO showed EF normal and no significant valvular disease. Initially had planned for trial of ivabradine and had planned forr tilt table testing which was deferred until documented improvement from hyperthyroid standpoint. Tilt Table then performed on 04/12/2025 that confirmed POTS. Pt reports taking both fludrocortisone and propranolol 20mg and non pharmacological interventions as advised. Last visit the following tests were ordered and reviewed today in detail and answered all questions: ROS ROS was performed which was reportedly negative per patient except for pertinent positives and negatives as documented in the HPI. The following portions of the chart were reviewed this encounter and updated as appropriate: Tobacco Allergies Meds Problems Med Hx Surg Hx Fam Hx Allergies Amoxicillin-pot clavulanate, Cinnamon, Iv contrast, Penicillin g, Betamethasone dipropionate (augmented) [betamethasone], Penicillins, Atarax [hydroxyzine], and Benadryl [diphenhydramine] Medications Current Medications[1] Objective: Physical Exam There were no vitals filed for this visit. There is no height or weight on file to calculate BMI. Telehealth Physical Exam General: no acute distress, speaking in full sentences, able to hear me Neck: Symmetrical, trachea midline Cardiovascular: No JVD noted, no cyanosis Respiratory: moderate respiratory distress, labored breathing Abdomen: Flat, non-distended, obese Musculoskeletal: moving all extremeties Neurological: no facial drooping, no aphasia Skin: No new bruises , rashes or swelling Psychological: cooperative Lab Review No lab exists for component: ALB Lab Results Component Value Date GLUCOSE 85 05/20/2025 CALCIUM 9.1 05/20/2025 NA 138 05/20/2025 K 3.9 05/20/2025 CO2 19 (L) 05/20/2025 CL 106 05/20/2025 BUN 12 05/20/2025 CREATININE 0.69 05/20/2025 Lab Results Component Value Date WBC 6.99 05/20/2025 HGB 13.2 05/20/2025 HCT 39.8 05/20/2025 PLT 184 05/20/2025 MCV 84 05/20/2025 No lab exists for component: NTPROBNP Lab Results Component Value Date TSH 1.83 01/17/2025 BNP <50 07/16/2024 Lab Results Component Value Date TSH 1.83 01/17/2025 No results found for: HGBA1C No results found for: TRIG , CHOL , HDL , LDL , LDLCALC Assessment/Plan Francy Delarosa is a 25 y.o. female history of Abnormal ECG, Anemia, Anxiety, Depression, Eczema, Food intolerance, GERD (gastroesophageal reflux disease), Gilbert syndrome, Headache, tension-type, Hypertension, Hyperthyroidism, Insomnia, Liver disease, Migraine, Peptic ulceration, POTS (postural orthostatic tachycardia syndrome), who presents to clinic today for follow up visit. Postural tachycardia syndrome (POTS) -Meets diagnostic criteria for POTS by Tilt Table testing 06/19/25 -Continue non-pharmacological measures instituted including increased fluid 2-3 L/day and salt intake (10-12g/day), exercise training, compression garments -Pharmacological volume expansion: Fludrocortisone may help although limited evidence. Fludrocortisone: 0.1-0.2 mg orally once daily, titrated to effect and tolerability; monitor for hypokalemia and hypertension. -Given NE>220 , use NET inhibitor Atomoxetine (neurogenic) -Continue Heart rate control: Propranolol -Continue Pyridostigmine titrated to effect. -Initiate Paxil CR 12.5mg daily if no contraindication with other medications. Low Ferritin -Ferritin was assessed to evaluate iron status and screen for iron deficiency or overload, both of which can contribute to fatigue and exacerbate autonomic symptoms. Ferritin is also an acute-phase reactant and may be elevated in inflammatory states, which can overlap with dysautonomia presentations. Given low ferritin, will initiate supplementation. -PT made aware that Tetracyclines, such as Tetracyclines, may decrease absorption of iron preparations including Iron Salts. Iron Preparations may also decrease serum concentration of Tetracyclines. Abnormal CPET Findings An abnormal maximal voluntary ventilation (MVV) in a young adult with normal pulmonary mechanics and no ventilatory limitation on CPET suggests that ventilatory capacity is preserved and does not explain the impaired exercise capacity; instead, the reduced peak VO2 and flat oxygen pulse point toward impaired stroke volume reserve or peripheral oxygen utilization, possibly due to deconditioning ordysautonomia. The absence of a pulmonary mechanical limitation, as evidenced by a normal ventilatory equivalent for carbon dioxide (VE/VCO2) slope and preserved ventilatory reserve, rules out a primary respiratory cause for exercise intolerance. The flat oxygen pulse, in the context of a normal heart rate and blood pressure response, further supports a non-cardiopulmonary limitation, implicating either impaired stroke volume augmentation or abnormal peripheral oxygen extraction, both of which are recognized in dysautonomia and deconditioning. In the absence of cardiac or pulmonary mechanical limitation, management should focus on non-pharmacologic interventions such as tailored, recumbent or semi-recumbent exercise training, gradual increases in exercise duration and intensity, and supportive measures like salt and fluid loading, as recommended for dysautonomia. The [employer] recommends recumbent or semi-recumbent exercise (e.g., rowing, swimming, cycling) initially, with slow progression to upright exercise as tolerated, to improve functional capacity and autonomic regulation. If uncertainty remains regarding the etiology of impaired oxygen utilization, further evaluation with advanced hemodynamic or muscle oxygenation assessments may be warranted. Courtney Torres MD Total visit time: 30 minutes [1] Current Outpatient Medications Medication Sig Dispense Refill acetaminophen (Tylenol) 325 MG capsule Take 2 capsules (650 mg) by mouth every 6 (six) hours if needed for mild pain. 30 capsule 1 Blood Glucose Monitoring Suppl (OneTouch Verio Reflect) w/Device kit busPIRone (Buspar) 5 MG tablet Take 1 tablet (5 mg) by mouth every night. Takes at 8PM 30 tablet 0 cholecalciferol (Vitamin D-3) 50 MCG (1999 UT) capsule (Patient not taking: Reported on 06/12/2025) cholecalciferol (Vitamin D3) 25 MCG (1000 UT) tablet as needed. dexlansoprazole (Dexilant) [address] capsule Take 1 capsule by mouth daily. Do not crush or chew. 30capsule 5 doxycycline (Vibramycin) 100 MG capsule Take 1 capsule by mouth 2 times a day for 7 days. Take withat least 8 ounces (large glass) of water, do not lie down for 30 minutes after 14 capsule 0 fludrocortisone (Florinef) 0.1 MG tablet Take 1 tablet by mouth daily. (Patient not taking: Reported on 06/15/2025) 30 tablet 3 fluticasone (Flonase) 50 MCG/ACT nasal spray Administer 1 spray into each nostril daily. (Patient not taking: Reported on 06/12/2025) ketoconazole (NIZOral) 2 % cream as needed. (Patient not taking: Reported on 06/15/2025) Lancets (Vox MediaTouch Delica Plus Snsimw18H) misc levothyroxine (Synthroid, Levoxyl) 25 MCG tablet Take 1 tablet by mouth daily. meclizine (Antivert) 25 MG tablet Take 0.5 tablets by mouth 3 times a day as needed for dizziness (Dizziness). 90 tablet 3 midodrine (Proamatine) 5 MG tablet Take 1 tablet by mouth 3 times a day as needed (hypotension). 90tablet 3 NON FORMULARY Take 1,000 mg by mouth daily. Sodium chloride tablets 1000 mg once daily by mouth (Patient not taking: Reported on 06/12/2025) ondansetron ODT (Zofran-ODT) 4 MG disintegrating tablet [...] tablet Take 1 tablet by mouth daily. Ventolin HFA 108 (90 Base) MCG/ACT inhaler [...] Description 08/08/2025 1:20 PM EST Office Visit [facility] [address] [place] [phone] Antoine Manrique MD [address] [place] [address] 08/28/2025 10:40 AM EST Office Visit [facility] [address] [place] [address] Courtney Torres MD [address] [place] [address] 09/12/2025 12:20 PM EST Office Visit [facility] [address] [place] [phone] Jessica Mcdonnell PA [address] [facility] [address] [place] [address] 11/07/2025 2:00 PM EDT Office Visit [facility] [address] [place] [phone] Maddie Mtz PA [address] [place] [phone] Scheduled Referrals Name Type Priority Associated Diagnoses Orde r Schedule Follow Up Cardiology Outpatient Referral Routine POTS (postural orthostatic tachycardia syndrome) Expected: 09/19/2025, Expires: 12/17/2026 documented as of this encounter Goals Goal Patient Goal Type Associated Problems Recent Progress Patient-Stated? Author Delayed Delivery Care Plan CPM S22 PP LABOR (OBSTETRICS) No Open Scheduling, Background documented as of this encounter Visit Diagnoses Diagnosis POTS (postural orthostatic tachycardia syndrome)- Primary Unspecified tachycardia documented in this encounter Additional Health Concerns Active Problems Noted Date Diagnosed Date CPM S22 PP LABOR (OBSTETRICS) 02/24/2024 Assessment Noted Time PHQ-9 Depression Total Score: 0 06/12/20 9:12 AM EST A fall risk assessment has been complete d for the patient 06/19/2025 7:55 AM EST A Body Mass Index follow-up plan has been documented for the patient 06/19/2025 9:27 AM EST documented as of this encounter Care Teams Director Of Front Office Relationship Specialty Start Date End Date Rey Wyatt MD [address] [place] [address] PCP - General 11/16/24 06/25/25 Angela Oleary, RN [facility] None Registered Nurse Cardiology 02/17/24 documented as of this encounter
--- OUTSIDE RECORDS SUMMARY | 2025-06-19 11:42 | XMS_ITS | Encounter Summary ---
Author Organization [facility] Address [address] [place] [address] Care Team Providers Care Reinsurance Claims Analyst Name Role Phone Angela Oleary RN Unavailable Unavailable Rey Wyatt MD Primary Care Provider [phone] Reason for Referral * Other Medical (Routine) - Closed Specialty Diagnoses / Procedures Referred By Mili joe Referred To Contact Neurology Diagnoses Syncope, unspecified syncope type Procedures Home-Based Ambulatory EEG Kendy Sanchez APRN [address] [address] Phone: tel: fax: Referral ID Status Reason Start Date Expiration Date V isits Requested Visits Authorized [id number] Closed Specialty Services Required 03/15/2025 09/14/2026 1 1 Reason for Visit * Other Medical (Routine) - Closed Specialty Diagnoses / Procedures Referred By Mili joe Referred To Contact Neurology Diagnoses Syncope, unspecified syncope type Procedures Home-Based Ambulatory EEG Kendy Sanchez APRN [address] [address] Phone: tel: fax: Referral ID Status Reason Start Date Expiration Date V isits Requested Visits Authorized [id number] Closed Specialty Services Required 03/15/2025 09/14/2026 1 1 Encounter Details Date Type Department Care Team (Latest Contact Info) Description 06/19/2025 11:42 AM EST - 06/19/2025 11:59 PM EST Hospital Encounter [facility] Neurophysiology [address] [place] [address] Syncope, unspecified syncope type Discharge Disposition: Home or Self Care Social History Tobacco Use Types Packs/Day Years Used Date Smoking Tobacco: Former Cigarettes 0.3 10 2 2021 Passive Smoke Exposure: Current Smokeless Tobacco: [...] Recorded Patient Health Questionnaire-2 Score 0 06/12/2025 [facility] of Occupat ional [...] exercise at this level? 0 min 02/22/2024 [place] Depression Scale Answer Date Recorded [place] Depression Scale Total 6 08/08/2024 The thought [...] any time in the past 12 m [facility], were you homeless or living in a long term (including now)? No 06/15/2025 [facility] Utilities Answer Date Recorded In the past 12 months has th e [employer], gas, oil, or water company threatened to [...] first t casi in the morning (EYE-ELECTRIC VEHICLE ELECTRICIAN) to steady your nerves or to get [...] Suppl (OneTouch Verio Reflect) w/Device kit 04/14/2024 busPIRone (Buspar) [...] crush or chew. 30 capsule 5 06/12/2025 ferrous sulfate 324 MG tablet delayed-release Take 1 tablet by mouth daily with breakfast. 30 tablet 2 06/19/2025 fludrocortisone (Florinef) 0.1 MG tabletIndications:P helen's disease Take 1 tablet by mouth daily. 30 tablet 3 11/16/2024 fluticasone (Flonase) 50 MCG/ACT nasal spray Administer 1 spray into each nostril daily. 12/08/2024 ketoconazole (NIZOral) 2 % cream as needed. Lancets (OneTouch Delica Plus [id number]) [facility] 04/14/2024 levothyroxine (Synthroid, Levoxyl) 25 MCG tablet [...] nausea or vomiting. 20 tablet 5 12/30/2024 Battery Medicsuch Verio test strip 1 each by Other route as needed. 04/14/2024 PARoxetine CR (Paxil CR) 12.5 MG 24 hr tabletIndications:P OTS Take 1 tablet by mouth every morning. Do not crush, chew, or split. 30 tablet 1 06/19/2025 propranolol (Inderal) 20 MG tabletIndications:P helen's disease [...] for 30 minutes after 14 capsule 06/15/2025 documented as of this encounter Plan of Treatment Upcoming Encounters Date Type Department Care Team (Late st Contact Info) Description 08/08/2025 1:20 PM EST Office Visit [facility] Medicine Specialties [address] [place] [address] Antoine Manrique MD [address] [employer] [employer], [place] [phone] 08/28/2025 10:40 AM EST Office Visit [facility] [place] [address], [address] [place] [address] Courtney Torres MD [address] [place] [address] 09/12/2025 12:20 PM EST Office Visit [facility] Medicine Specialties [address] [place] [address] Jessica Mcdonnell PA [address] [place] [phone] 11/07/2025 2:00 PM EDT Office Visit [facility] [address] [place] [address] Maddie Mtz PA [address] [place] [address] documented as of this encounter Goals Goal Patient Goal Type Associated Problems Recent Progress Patient-Stated? Author Delayed Delivery Care Plan CPM S22 PP LABOR (OBSTETRICS) No Open Scheduling, Background documented as of this encounter Procedures Procedure Name Priority Date/Time Associated Diagnosis Comments HC UNMITRDNOVIDEO 07-21 TECH AMB Routine 06/21/2025 10:22 AM EST Syncope, unspecified syncope type documented in this encounter Results * Home-Based Ambulatory EEG (06/21/2025 10:22 AM EST) Anatomical Region Laterality Modality EEG Narrative 06/28/2025 1:23 AM EST Table formatting from the original result was not included. HOME AMBULATORY EEG Report Patient: Francy Delarosa : 2000 SEX: female Referring Provider: Kendy Sanchez APRN EEG Reading Physician: Anila Francisco MD Study Type: AMB-48HR Begin Date: 06/19/2025 Begin Time: 12:29 PM End Date: 06/21/2025 End Time: 10:22 AM Study provided on June 26 for review. Total EEG Recording Time: 45 hours 31 minutes Indication for study: Concern for seizures SEIZURE HISTORY: Francy Delarosa is a 24 year old right handed female with with PMH of mono, Brayan-Henson virus, anxiety, depression with second child, POTS, and angela's, hypothyroidism, and fainting episodes. Diary was returned and no events were marked Medications: Current Medications[1] HOME AMBULATORY -EEG MONITORING METHODOLOGY: This is a home ambulatory EEG without video monitoring using 23-channel recordings (unless otherwise specified) in a 10/20 system with [employer] software and hardware. Additional electrodes: none FT9/FT10: No Other: none The seizure detection computer was used for detection of ictal discharges (subclinical and clinical), interictal discharges, and to record ictal events that were documented by depression of the event button in the patient's room. Analyses of the monitoring data were performed using the following techniques: 1. Review of the relevant video-EEG data. 2. Review of events detected by the computer system in detail. 3. Review of clinical seizures, with both detailed review of EEG and video and playback using multiple montages. A variety of referential and bipolar montages were used. Results of the monitoring were related to the treating team frequently throughout the study, at least once a day to help guide treatment via verbal or written communication. Updates and response to treatment were communicated as requested by the requesting physician or the team. CLINICAL AND EEG ANALYSIS INTERICTAL EEG DESCRIPTION: State of patient: awake, sleep Awake background: 8.5 to 9 PDR noted. In anterior regions frontocentral beta was noted. Posterior dominant rhythm: 8.5 to 9 Hz Voltage: 30-40 uV Organization: well organised Reactivity to eye opening/closure: good Sleep background: Stages 1 and 2 of sleep are attained. Deeper stages of sleep were not attained. ACTIVATION PROCEDURES: none Hyperventilation: No hyperventilation was performed Photic stimulation: Photic stimulation was not performed Reactivity to stimulation: reactive NONEPILEPTIFORM INTERICTAL ABNORMALITIES None EPILEPTIFORM INTERICTAL ABNORMALITIES None ICTAL / EVENT DESCRIPTION: Clinical Description: none EEG Description: none Abnormalities: None CLINICAL INTERPRETATION: This is a normal home ambulatory EEG study. Absence of epileptiform discharges does not rule out epilepsy. If clinical suspicion is high , and EMU admission may be requested for characterization of spells. Anila Francisco MD [employer] [facility] [phone] [1] Current Outpatient Medications Medication Sig Dispense Refill acetaminophen (Tylenol) 325 MG capsule Take 2 capsules (650 mg) by mouth every 6 (six) hours if needed for mild pain. 30 capsule 1 Blood Glucose Monitoring Suppl (Battery Medicsuch Verio Reflect) w/Device kit busPIRone (Buspar) 5 MG tablet Take 1 tablet (5 mg) by mouth every night. Takes at 8PM 30 tablet 0 cholecalciferol (Vitamin D-3) 50 MCG (2000 UT) capsule (Patient not taking: Reported on 06/19/2025) cholecalciferol (Vitamin D3) 25 MCG (1000 UT) tablet as needed. dexlansoprazole (Dexilant) [address] capsule Take 1 capsule by mouth daily. Do not crush or chew. 30 capsule 5 doxycycline (Vibramycin) 100 MG capsule Take 1 capsule by mouth 2 times a day for 7 days. Take with at least 8 ounces (large glass) of water, do not lie down for 30 minutes after (Patient not taking: Reported on 06/19/2025) 14 capsule 0 ferrous sulfate 324 MG tablet delayed-release Take 1 tablet by mouth daily with breakfast. 30 tablet 2 fludrocortisone (Florinef) 0.1 MG tablet Take 1 tablet by mouth daily. 30 tablet 3 fluticasone (Flonase) 50 MCG/ACT nasal spray Administer 1 spray into each nostril daily. (Patient not taking: Reported on 06/19/2025) ketoconazole (NIZOral) 2 % cream as needed. Lancets (OneTouch Delica Plus [id number]) misc levothyroxine (Synthroid, Levoxyl) 25 MCG tablet Take 1 tablet by mouth daily. meclizine (Antivert) 25 MG tablet Take 0.5 tablets by mouth 3 times a day as needed for dizziness (Dizziness). 90 tablet 3 midodrine (Proamatine) 5 MG tablet Take 1 tablet by mouth 3 times a day as needed (hypotension). 90 tablet 3 NON FORMULARY Take 1,000 mg by mouth daily. Sodium chloride tablets 1000 mg once daily by mouth ondansetron ODT (Zofran-ODT) 4 MG disintegrating tablet Dissolve 2 tablets on the tongue every 8 hours as needed for nausea or vomiting. 20 tablet 5 OneTouch Verio test strip 1 each by Other route as needed. PARoxetine CR (Paxil CR) 12.5 MG 24 hr tablet Take 1 tablet by mouth every morning. Do not crush, chew, or split. 30 tablet 1 propranolol (Inderal) 20 MG tablet Take 1 [...] time as needed for shortness of breath. (Patient not taking: Reported on 06/19/2025) Current Facility-Administered Medications Medication Dose Route Frequency Provider Last Rate Last Admin sodium chloride 0.9 % infusion 250 mL 250 mL Intravenous Once Shalonda Davies APRN Kendy Sanchez APRN NEUROLOGY ORDERABLES Final Result documented in this encounter Visit Diagnoses Diagnosis Syncope, unspecified syncope type documented in this encounter Additional Health [...] documented as of this encounter Care Teams Reinsurance Claims Analyst Relationship Specialty Start Date End Date Rey Wyatt MD [address] [id number] PCP - General 11/16/24 06/25/25 Angela Oleary, RN [facility] None Registered Nurse Cardiology 02/17/24 documented as of this encounter
--- OUTSIDE RECORDS SUMMARY | 2025-06-21 10:12 | XMS_ITS | Encounter Summary ---
Author Organization Healthcare Address [address] [place] [address] Care Team Providers Care Manager Of Medical Name Role Phone Angela Oleary RN Unavailable Unavailable Rey Wyatt MD Primary Care Provider [phone] Encounter Details Date Type Department Care Team (Latest Contact Info) Description 06/21/2025 10:12 AM EST - 06/21/2025 11:59 PM [facility] Hospital Encounter [facility] H Neurophysiology [address] [facility] [address] [place] [address] Discharge Disposition: Home or Self Care Social History Tobacco Use Types Packs/Day Years Used Date Smoking Tobacco: Former Cigarettes 0.3 10 2021 Passive Smoke Exposure: Current Smokeless Tobacco: [...] any clubs o r organizations such as christianity groups, unions, fraternal or athletic groups, or [...] Recorded Patient Health Questionnaire-2 Score 0 06/12/2025 [employer] of Occupat ional [facility] - Occupational [...] exercise at this level? 0 min 02/22/2024 [place] Depression Scale Answer Date Recorded [place] Depression Scale Total 6 08/08/2024 The thought [...] time in the past 12 m [facility], were you homeless or living in a usp (including now)? No 06/15/2025 [facility] Utilities Answer Date Recorded In the [...] capsule 1 07/18/2024 Blood Glucose Monitoring Suppl ([employer] Verio Reflect) w/Device kit 04/14/2024 busPIRone (Buspar) [...] (NIZOral) 2 % cream as needed. Lancets ([employer] Delica Plus Noyrkw25I) [facility] 04/14/2024 levothyroxine (Synthroid, Levoxyl) 25 MCG tablet [...] nausea or vomiting. 20 tablet 5 12/30/2024 [employer] test strip 1 each by Other route [...] Description 08/08/2025 1:20 PM EST Office Visit [facility]ties [address], [address] [place] [address] Antoine Manrique MD [address] [place] [address] 08/28/2025 10:40 AM EST Office Visit [facility] [place] [address], [address] [place] [address] Courntey Torres MD [address] [place] [address] 09/12/2025 12:20 PM EST Office Visit [facility] [address], [address] [place] [address] Jessica Mcdonnell PA [address] [facility] [address] [place] [address] 11/07/2025 2:00 PM EDT Office Visit [facility] [address] [place] [address] Maddie Mtz, BOOKER [address] [place] [address] documented as of this encounter [...] as of this encounter Care Teams Manager Of Medical Relationship Specialty Start Date End Date Rey Wyatt MD [address] [facility] [address] [id number] PCP - General 11/16/24 06/25/25 Angela Oleary, RN [facility] None Registered Nurse Cardiology 02/17/24 documented as of this encounter
--- OUTSIDE RECORDS SUMMARY | 2025-06-28 08:00 | XMS_ITS | Encounter Summary ---
Author Organization Healthcare Address [address] [place] [address] Care Team Providers Care Painting Machine Operator Name Role Phone Angela Oleary RN Unavailable Unavailable Padmini Wyatt APRN Primary Care Provider [phone] Encounter Details Date Type Department Care Team (Late st Contact Info) Description 06/28/2025 8:00 AM EST Office Visit [facility] [address] [place] [address] Kendy Sanchez APRN [address] [place] [address] Syncope, unspecified syncope type (Primary Dx) Social History Tobacco Use Types Packs/Day Years Used Date Smoking Tobacco: Former Cigarettes 0.3 10 2 012 - 2021 Passive Smoke Exposure: Current Smokeless [...] How often do you attend chur or orthodoxy services? Never 02/22/2024 Do you [...] Score 0 06/12/2025 [facility] of Occupat ional Health [...] exercise at this level? 0 min 02/22/2024 Cammal Depression Scale Answer Date Recorded Cammal Depression Scale Total 6 08/08/2024 The thought [...] any time in the past 12 m [facility], were you homeless or living in a [facility] (including now)? 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 Patient identity has been confirmed using name and date of . Patient confirms they are physically located in [place]. The patient has received and understands the [place] Authorizations and Agreements form and consents to the general terms and conditions of care. The patient has received the Consent for Care Using TeleCare. The risk, benefits, and alternatives of care being provided via telecarewere discussed with the patient who understands and agrees to proceed. History of Present Illness This visit was performed via Telehealth (audio +video) during the COVID19 Pandemic. No technical issues were encountered to interrupt this visit. I had the pleasure of seeing Ms. Francy Delarosa as a follow up visit in the Epilepsy clinic. She was referred to epilepsy clinic by by cardiology team, she has history of POTS. She uses wheelchair due to frequent fainting, palpitation, and SOB. She is a 25 year old right handed female with past medical history of mono, Brayan-Henson virus, Abnormal ECG, Anemia, Anxiety, depression with second child Depression, Eczema, Food intolerance, GERD (gastroesophageal reflux disease), angela's, hypothyroidism, Gilbert syndrome, Headache, tension-type, Hypertension, Hyperthyroidism, Insomnia, Liver disease, Migraine, Peptic ulceration, POTS (postural orthostatic tachycardia syndrome), and Syncope. I saw her as a new consult regarding episode of fainting on 03/15/2025 which was referred by her Plant Technician/Control Room Operator. She had ambulatory EEG for 2 nights on 06/19 to 06/21/2025 which showed normal home ambulatory EEG study. There were no seizures or epileptiform discharges during this study. It was advised If clinical suspicion is high , and EMU admission may be requested for characterization of spells. She reports that she had 1 hospitalization in April due to fainting episode she was consulted with Cardiology, and Neurology and had CT head/neck and MRI head with and without contrast which they were unremarkable. She tells me they advised her the reason for pass out episodes was POTS. Per prior note: SEIZURE DESCRIPTION: Age of onset: 23 Aura/Warning [...] occurrence - 2 weeks ago. Epilepsy Evaluation: Ambulatory EEG May 2025: Clinical interpretation: This is a normal home ambulatory EEG study. Absence of epileptiform discharges does not rule out epilepsy. If clinical suspicion is high , and EMU admission may be requested for characterization of spells. MRI head w/wo April 2025: IMPRESSION: MRI of the brain with contrast within normal limits. No definite mass lesions or areas of abnormal signal or enhancement within the orbits. OSH MRI head wo December 2024: Impression: no acute intracranial abnormality. CT Angio head/Neck Apr 2025: IMPRESSION: Neck CTA: No hemodynamically significant stenosis is present within the cervical carotid and vertebral systems. Head CTA: No hemodynamically significant intracranial arterial stenosis or aneurysm is present. 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 Patient is not driving status- not , not on control Mood: hx of depression, takes Buspar Memory: forgetful Suicidal Ideation: no Sleep: insomnia The patient's ability to work since last visit: No Review of Systems: A 14 point review of systems was negative except as noted in HPI. Physical Exam: Exam is limited due to the telehealth visit. No vitals could be taken as this was a telemedicine video visit. Patient is pleasant, well appearing and no acute distress. Mood is appropriate. On Neurological Examination: Language functions are normal and patient is alert and oriented. Cranial Nerves: Pupils are equal and reactive, Ocular motility intact, No nystagmus. Motor: they were able to lift both arms symmetrically against gravity. They could stand without assistance and did not fall. No tremor noted Coordination:. Normal Tone. [id number] with good rhythm, no dysmetria. Gait was normal. . No ataxia. No tremor noted. Gait: She uses wheelchair due to fainting episodes. Discussion: Francy Delarosa is a 24 year [...] goes black and losing muscle skill. She had ambulatory EEG for 2 nights on 06/19 to 06/21/2025 which showed normal home ambulatory EEG study. There were no seizures or epileptiform discharges during this study. It was advised If clinical suspicion is high , and EMU admission may be requested for characterization of spells. She reports that she had 1 hospitalization in April due to pass out episode. Neurology was consulted and CTA Head and Neck were preformed, as well as, MRI Head and Orbits whichshowered no acute intracranial abnormalities or any signs of stenosis. She tells me they advised her the reason for pass out episodes was POTS. I advised her with any clinical suspicion for seizure, EMU admission may be requested for characterization of spells, she does not desire to do admission now, because she has 3 kids and younger one is 1 year old. Discussed the importance of not driving [...] the date of the last seizure/spell per [place] state law Patient has been informed to call clinic if any concerns or problems prior to next visit. Plan: -Given semiology of episodes and history of POTS, and normal ambulatory EEG, patient does not desire to start on any ASMs. --She had routine blood work in November, which I have reviewed with patient, the values were WNL or NCS. - Follow up in epilepsy clinic as needed. - Counseled on Women with epilepsy and [...] with any concerns prior to next appointment. Telehealth Statement Patient Verification Patient identity has been confirmed using name and date of ? Yes Authorizations and Agreements/Telemedicine Consent sent and consent confirmed? Yes Patient Location: Home/Other Patient confirms they are physically located in [place]? Yes If the patient is not physically located in [place], the provider has confirmed with Legal thatthe provider is authorized to provide services in patient's stated location? N/A Provider Location: home Audio and video or audio only? Audio and video Total time spent visit/counseling/management plan/review of results/ placing orders and documentation= 45 min documented in this encounter Plan of Treatment Upcoming Encounters Date Type Department Care Team (Late st Contact Info) Description 08/08/2025 1:20 PM EST Office Visit [facility] Medicine [facility]ties [address], [address] [place] [address] Antoine Manrique MD [address] [place] [address] 08/28/2025 10:40 AM EST Office Visit [facility] [place] [address], [address] [place] [address] Courtney Torres MD [address] [place] [address] 09/12/2025 12:20 PM EST Office Visit [facility] [address] [place] [address] Jessica Mcdonnell PA [address] [place] [address] 11/07/2025 2:00 PM EDT Office Visit [facility] [address] [place] [address] Maddie Mtz PA [address] [place] [address] documented as of this encounter [...] Time PHQ-9 Depression Total Score: 0 06/12/20 25 9:12 AM EST A fall risk assessment has been complete d for the patient 06/19/2025 7:55 AM EST A Body Mass Index follow-up plan has been documented for the patient 06/28/2025 8:47 AM EST documented as of this encounter Care Teams Painting Machine Operator Relationship Specialty Start Date End Date Padmini Wyatt APRN [address] [place], [place] [id number] PCP - General 06/26/25 Angela Oleary, RN [facility] None Registered Nurse Cardiology 02/17/24 documented as of this encounter
--- OUTSIDE RECORDS SUMMARY | 2025-07-06 10:30 | XMS_ITS | Encounter Summary ---
Author Organization Healthcare Address [address] [place] [address] Care Team Providers Care [employer] Cross[employer] Guard Supervisor Name Role Phone Angela Oleary RN Unavailable Unavailable Padmini Wyatt APRN Primary Care Provider [phone] Reason for Visit * Reason Comments Consult * Consultation (Routine) - Closed Specialty Diagnoses / Procedures Referred By Contac t Referred To Contact Rheumatology Diagnoses Disorder of pigmentation, unspecified External Location [address] [place] [address] Phone: tel: Referral ID Status Reason Start Date Expiration Date V isits Requested Visits Authorized [id number] Closed Specialty Services Required 06/12/2025 12/12/2026 1 1 Encounter Details Date Type Department Care Team ([facility] Contact Info) Description 07/06/2025 10:30 AM EST Consult [facility] [address] [place] [address] Jill Sorensen PA [address] [place] [address] Raynaud's disease without gangrene (Primary Dx); Livedo reticularis; Myalgia; POTS (postural orthostatic tachycardia syndrome); Dizziness Social History Tobacco Use Types Packs/Day Years [...] Date Recorded Patient Health Questionnaire-2 Score 0 07/06/2025 [facility] - Occupational Stress Questionnaire [...] exercise at this level? 0 min 02/22/2024 [place] Depression Scale Answer Date Recorded [place] Depression Scale Total 6 08/08/2024 The thought of harming myself has occurred to me . Never 08/08/2024 PHQ-9 Answer Date Recorded Patient Health Questionnaire-9 Score 0 07/06/2025 Humiliation, Afraid, Rape, and Kick questionnair e [...] any time in the past 12 m [facility], were you homeless or living in a retirement (including now)? No 06/15/2025 [facility] Utilities Answer Date Recorded In the past 12 months has e [employer], gas, oil, or water company threatened to [...] drink first t casi in the morning (EYE-ASTHMA EDUCATOR) to steady your nerves or to [...] Sign Reading Time Taken Comments Blood Pressure 109/69 07/06/2025 10:23 AM EST Pulse 55 07/06/2025 10:23 AM EST Temperature 36.7 C (98.1 F) 07/06/2025 10:23 AM EST Respiratory Rate 16 07/06/2025 10:23 AM EST Oxygen Saturation 99% 07/06/2025 10:23 AM EST Inhaled Oxygen Concentration - - Weight 77 kg (169 lb 12.1 oz) 07/06/2025 10:23 A M EST Height 167.6 cm (5' 6 ) 07/06/2025 10:23 AM EST Body Mass Index 27.4 07/06/2025 10:23 AM EST documented in this encounter Functional Status * Over the past 2 weeks, how often have you been bothered by any of the following problems? Question Answer Date of Assessment Author Little interest or pleasure in doing things Not at all 07/06/2025 10:33 AM EST Shireen Mercer Feeling down, depressed, or hopeless Not at all 07/06/2025 10:33 AM EST Shireen Mercer Patient Health Questionnaire -2 Score 0 07/06/2025 10:33 AM EST Shireen Mercer * Question Answer Date of Assessment Author Trouble falling or staying a sleep, or sleeping too much Not at all 07/06/2025 10:33 AM EST Shireen Mercer Feeling tired or having kentrell le energy Not at all 07/06/2025 10:33 AM EST Shireen Mercer Poor appetite or overeating Not at all 07/06/2025 10 :33 AM Shireen Ambrosio Feeling bad about yourself - or that you are a failure or have let yourself or your family down Not at all 07/06/2025 10:33 AM Shireen Hoskins Trouble concentrating on thi ngs, such as reading the newspaper or watching television Not at all 07/06/2025 10:33 AM Shireen Ambrosio Moving or speaking so slowly that other people could have noticed. Or the opposite - being so fidgety or restless that you have been moving around a lot more than usual Not at all 07/06/2025 10:33 AM Shireen Ambrosio Thoughts that you would be b gómez off or hurting yourself in some way Not at all 07/06/2025 10:33 AM Shireen Ambrosio Patient Health Questionnaire -9 Score 0 07/06/2025 10:33 AM Shireen Ambrosio * How difficult have these problems made it for you to do your work, take care of things at home, or get along with other people? Answer Date of Assessment Author Not difficult at all 07/06/2025 10:33 AM EST Shireen Castro documented as of this encounter Miscellaneous Notes * Addendum Note - Jill Sorensen PA - 07/06/2025 10:30 AM ESTAddended by: JILL SORENSEN on: 07/10/2025 10:49 AM Modules accepted: Orders * Progress Notes - Jill Sorensen PA - 07/06/2025 10:30 AM EST Images from the original note were not included. Rheumatology Office Visit - New Patient HPI: Francy Delarosa is a 25 y.o. female who was referred to rheumatology by Padmini Wyatt APRN for evaluation of Raynaud's. Consult (07/06/2025): Follows with [facility] for POTS. Plans to send to be seen at [facility]. She is following with ENT to look into dizziness. She notes a significant history of dizziness and needing to use a wheelchair to ambulate due to unsteadiness. Her symptoms began 1.5 years ago. Presents to rheumatology today for Raynaud's and rash. These symptoms began a year and half ago, hand color changes from purple, white, and blue. Cold will be a trigger. She notes during dizzy spellsthat she will note the color changes. Attempts to keep her hands warm. History holger almeida virus, illness, surgeries, and then her symptoms began after that. In her in 06/2024, she was hospitalized for preeclampsia three times. Daughter born at 37weeks, no complications with her daughter. Describes gibbs pain in her bilateral extremities. Describes right shoulder pain and hand pain. History of breaking her hand in the past. Denies synovitis, warmth, or erythema. Morning stiffness 30- 40 minutes in her neck and back, [facility] She used to follow with [facility]. History of compression fracture in her back. Movement makes joint pain worse. Endorses significant daily dry eyes, not using eye drops, painless recurrent oral ulcers, bald spots, notes butterfly rash once after going out in the sun and notes lacy rash on legs, photosensitivity with rashes going away within 20- 30 minutes after exposure, severe muscle weakness, and shortness of breath, dysphagia Denies significant daily dry mouth, or nasal ulcers, alopecia, recurring serositis, psoriasis, recurring rash, digit ulcerations, renal disease, gross hematuria, recurrent fevers with flares, recurrent sinusitis, psychosis or delirium, seizures, Crohn's, ulcerative colitis, uveitis, MS or other demy elinating disease, blood clots, or miscarriages/ complications Skin tightening, telangiectasias, calcinosis cutis. Rheum Medication History: Past medical history: POTS Hypothyroidism Anxiety Dizziness Tinea Versicolor Gilbert GERD HTN Migraine Gastritis History of thyroid storm Family History: FH of autoimmune diseases? Mother- Tricia's Aunt- SLE, RA Brother- Crohn's Social History: Exposure to HCV, HBV, HIV or TB. None hx IV drug use. None hx of tobacco use. Quit smoking in 2021, smoked 10 years x 1 ppd hx of alcohol abuse. None Review of Systems Constitutional: Positive for fatigue. Negative for chills and fever. HENT: Negative for mouth sores. Eyes: Negative for pain and redness. Respiratory: Negative for shortness of breath. Cardiovascular: Negative for chest pain. Genitourinary: Negative for hematuria. Musculoskeletal: Positive for arthralgias and back pain. Negative for joint swelling. Skin: Positive for rash. Neurological: Positive for dizziness. Negative for seizures. PMx: Past Medical History[1] Psx: Surgical History[2] FMx: Family History[3] Sx: Social History Tobacco Use Smoking status: Former Current packs/day: 0.00 Average packs/day: 0.3 packs/day for 10.0 years (2.5 ttl pk-yrs) Types: Cigarettes Start date: 2011 Quit date: 2021 Years since quittin.9 Passive exposure: Current Smokeless tobacco: Former Tobacco comments: History of vaping after cigarettes. Stopped when she found out she was Substance Use Topics Alcohol use: Never Allergies: Allergies[4] Medications: Current Outpatient Medications Medication Instructions Blood Glucose Monitoring Suppl ([place] Verio Reflect) w/Device kit busPIRone (BUSPAR) 5 mg, Oral, Nightly, Takes at 8PM cholecalciferol (Vitamin D-3) 50 MCG (2000 UT) capsule cholecalciferol (Vitamin D3) 25 MCG (1000 UT) tablet As needed dexlansoprazole (DEXILANT) 60 mg, Oral, Daily, Do not crush or chew. ferrous sulfate 324 mg, Oral, Daily with breakfast fludrocortisone (FLORINEF) 0.1 mg, Oral, Daily fluticasone (Flonase) 50 MCG/ACT nasal spray 1 spray, Daily ketoconazole (NIZOral) 2 % cream As needed Lancets (InstantQuch Delica Plus [id number]) misc levothyroxine (SYNTHROID, LEVOXYL) 25 mcg, Daily meclizine (ANTIVERT) 12.5 mg, Oral, 3 times daily PRN midodrine (PROAMATINE) 5 mg, Oral, 3 times daily PRN NON FORMULARY 1,000 mg, Daily ondansetron ODT (ZOFRAN-ODT) 8 mg, Oral, Every 8 hours PRN La Koketa Verio test strip 1 each, As needed PARoxetine CR (PAXIL CR) 12.5 mg, Oral, Every morning, Do not crush, chew, or split. propranolol (INDERAL) 20 mg, Oral, 3 times daily pyridostigmine (MESTINON) 30 mg, Oral, 2 times daily simethicone (MYLICON) 80 mg, Every 6 hours PRN sodium chloride 1 g, Daily Tylenol 650 mg, Oral, Every 6 hours PRN Ventolin HFA 108 (90 Base) MCG/ACT inhaler Inhale 2 puffs 1 time as needed for shortness of breath. Objective Physical Exam Constitutional: Appearance: Normal appearance. Eyes: Conjunctiva/sclera: Conjunctivae normal. Cardiovascular: Rate and Rhythm: Normal rate and regular rhythm. Pulmonary: Effort: Pulmonary effort is normal. Breath sounds: Normal breath sounds. Musculoskeletal: General: Normal range of motion. Cervical back: Normal range of motion. Comments: No synovitis, warmth or erythema. 5/5 muscle strength on upper and lower extremity Skin: General: Skin is warm. Findings: No rash. Neurological: General: No focal deficit present. Mental Status: She is alert and oriented to person, place, and time. Psychiatric: Mood and Affect: Mood normal. Behavior: Behavior normal. The above medical information was reviewed for this encounter and updated as appropriate: Current Medications[5] Patient global assessment: 7.5/10 Rapid 3 score: 16.3/30 Swollen Joint Count: Swollen: 0 Tender Joint Count: Tender: 2 Imaging Studies: CXR on 06/15/2025: FINDINGS: Cardiomediastinal silhouette is normal and stable. No consolidation. No pleural effusion or pneumothorax. Mild anterior wedging midthoracic vertebral body. IMPRESSION: No acute cardiopulmonary findings. Labs: ASSESSMENT & PLAN: Plan of care developed with Francy Delarosa on (07/06/2025): 1. Raynaud's disease without gangrene (Primary) History of Raynaud's and dysphagia. History of cigarette smoking. Denies inflammatory arthritis Ordering ERI panel and scleroderma workup Her ERI may return elevated due to her hypothyroidism Continue conservative measures for Raynaud's Consider nitrobid ointment Continue to follow with GI - Anti-scleroderma antibody; Future - RNA Polymerase III Antibody, IgG; Future - Centromere Antibody, IgG; Future - CBC and Differential; Future - Comprehensive Metabolic Panel, Plasma; Future - C-Reactive Protein, Plasma; Future - Sedimentation Rate, Automated; Future - Antinuclear Antibody (ERI), HEp-2, IgG; Future - Double-Stranded DNA (dsDNA) Antibody, IgG by IFA; Future - C3 Complement; Future - C4 Complement; Future - ENAII; Future - Fair (BRODY) Antibody, IgG; Future - ENAI; Future - Protein, Random, Urine with Creatinine; Future - Thyroid Peroxidase Antibody; Future - Urinalysis with reflex microscopic (Culture NOT Included); Future 2. Livedo reticularis See media. History of leg rash occurring after sun exposure, goes away after 20 minutes inside Looking into vasculitis and APLS due to livedo reticularis like rash - ANCA Vasculitis Profile; Future - Beta-2 Glycoprotein 1 Antibody, IgA; Future - Anti-Beta 2 Glycoprotein, IgG and IgM; Future - Cardiolipin antibody, IgA; Future - Anticardiolipin IgG and IgM; Future - Lupus Anticoagulant Profile; Future 3. Myalgia Endorses myalgias 5/5 muscle strength of upper and lower extremity RA labs and muscle enzymes today - Rheumatoid Factor, Plasma; Future - Cyclic Citrul Peptide Antibody IgG; Future - Creatine Kinase (CK), Total; Future - Aldolase; Future 4. POTS (postural orthostatic tachycardia syndrome) 5. Dizziness History of dizziness with fluctuations in BP Follows with cardiology, ENT, and neurology #Health Maintenance Immunization History Administered Date(s) Administered DTaP, Unspecified 04/26/2002 HPV, Quadrivalent 05/29/2011 Hep A, ped/adol, 2 dose 02/20/2010, 11/21/2010 IPV 04/26/2002 Influenza, injectable, quadrivalent, preservative free 04/29/2023 Jasmine COVID-19 Vaccine (Blue Cap) 18+ 02/21/2021 MMR 04/26/2002 Tdap 02/20/2010 Varicella 07/06/2001 ADDENDUM (07/10/2025): CBC & CMP wnl APLS: aPTT lupus anticoagulant sensitive 41.9 (<41.0), negative IgG, IgM, IgA anticardiolipin, antibeta glycoprotein CK & aldolase wnl UA: trace blood and leukocytes UPCR 0.1 +ERI 1:160, homogenous Negative eri panel, vasculitis TPO 418 RF <10, CCP <5 CRP <3, SED 15 Negative centromere, RNA polymerase III, and SCL-70 Plan: Reorder APLS labs in 10/2025 and UA for hematuria No concerns at this point +ERI most likely from thyroid disease Follow Up: Next scheduled follow up: Follow up in about 4 months (around 11/04/2025). Patient is agreeable to the above treatment plan and had no further questions. Thanks for the opportunity to participate in the care of this patient! If there are any questions or concerns, please reach out to me personally. Thanks! BOOKER Garcia Parts of this note were dictated using [employer] Direct voice recognition software. As a result, errors may occur. When identified, these overlock hemmer errors are corrected, but while every attempt is made to prevent/correct these, errors may still exist. Time Spent: I personally spent a total of 70 minutes on this encounter. This time includes face to face with patient, counseling and discussion and/or coordination of care. minutes on the encounter. The patient was counseled about diagnostic results, instruction for management, risk factors reduction, prognosis, compliance with visits and treatment, risks and benefits of treatments options. Priornotes (by external physicians) and results were reviewed by me with independent interpretation of labs and imaging. My note will be sent to PCP and other consulting physicians. [1] Past Medical History: Diagnosis Date Abnormal [...] Crystal craft Thyroid disease Mother Crystal craft Abnormal EKG Mother Crystal craft Heart failure Father Sahil reynoso Hypertension Father [...] Neg Hx Malig Hyperthermia Neg Hx [4] Allergies Allergen Reactions Amoxicillin-Pot Clavulanate Swelling and Rash Cinnamon Swelling Mouth swelling Iv Contrast Other - please document in the comment field and Dizziness Shaking, chest pain, dizziness, vomiting Penicillin G Swelling and Palpitations Betamethasone Dipropionate (Augmented) [Betamethasone] Palpitations Penicillins Palpitations Atarax [Hydroxyzine] Palpitations Benadryl [Diphenhydramine] Palpitations [5] Current Outpatient Medications Medication Sig Dispense Refill acetaminophen (Tylenol) 325 MG capsule Take 2 capsules (650 mg) by mouth every 6 (six) hours if needed for mild pain. 30 capsule 1 Blood Glucose Monitoring Suppl (Reframe It Reflect) w/Device kit busPIRone (Buspar) 5 MG tablet Take 1 tablet (5 mg) by mouth every night. Takes at 8PM 30 tablet 0 cholecalciferol (Vitamin D3) 25 MCG (1000 UT) tablet as needed. dexlansoprazole (Dexilant) [address] capsule Take 1 capsule by mouth daily. Do not crush or chew. 30capsule 5 ferrous sulfate 324 MG tablet delayed-release Take 1 tablet by mouth daily with breakfast. 30 tablet 2 fludrocortisone (Florinef) 0.1 MG tablet Take 1 tablet by mouth daily. 30 tablet 3 ketoconazole (NIZOral) 2 % cream as needed. Lancets (La Koketa Delica Plus [id number]) misc levothyroxine (Synthroid, Levoxyl) 25 MCG tablet [...] for nausea or vomiting. 20 tablet 5 RedShelfTouch Verio test strip 1 each by Other [...] mouth daily. cholecalciferol (Vitamin D-3) 50 MCG (1999 UT) capsule (Patient not taking: Reported on 07/06/2025) fluticasone (Flonase) 50 MCG/ACT nasal spray Administer 1 spray into each nostril daily. (Patient not taking: Reported on 07/06/2025) Ventolin HFA 108 (90 Base) MCG/ACT inhaler Inhale 2 puffs 1 time as needed for shortness of breath.(Patient not taking: Reported on 07/06/2025) Current Facility-Administered Medications Medication Dose Route Frequency Provider Last Rate Last Admin sodium chloride 0.9 % infusion 250 mL 250 mL Intravenous Once Shalonda Davies APRN documented in this encounter Plan of Treatment Upcoming Encounters Date Type Department Care Team (Late st Contact Info) Description 08/08/2025 1:20 PM EST Office Visit [facility] Medicine Specialties [address] [place] [address] Antoine Manrique MD [address] [place] [address] 08/28/2025 10:40 AM EST Office Visit [facility] [address], [address] [place] [address] Courtney Torres MD [address] [place] [address] 09/12/2025 12:20 PM EST Office Visit [facility] Medicine Specialties [address] [place] [address] Jessica Mcdonnell PA [address] [place] [address] 11/07/2025 2:00 PM EDT Office Visit [facility] Medicine Specialties [address] [place] [address] Jill Sorensen PA [address] [place] [address] Scheduled Orders Name Type Priority Associated Diagnoses Orde r Schedule Beta-2 Glycoprotein 1 Antibody, IgA Lab Routine Livedo reticularis Expected: 10/08/2025 (Approximate), Expires: 01/11/2027 Anti-Beta 2 Glycoprotein, Ig G and IgM Lab Routine Livedo reticularis Expected: 10/08/2025 (Approximate), Expires: 01/11/2027 Cardiolipin antibody, IgA Lab Routine Livedo reticularis Expected: 10/08/2025 (Approximate), Expires: 01/11/2027 Anticardiolipin IgG and IgM Lab Routine Livedo reticularis Expected: 10/08/2025 (Approximate), Expires: 01/11/2027 Lupus Anticoagulant Profile Lab Routine Livedo reticularis Expected: 10/08/2025 (Approximate), Expires: 01/11/2027 documented as of this encounter Goals Goal Patient Goal Type Associated Problems Recent Progress Patient-Stated? Author Delayed Delivery Care Plan CPM S22 PP LABOR (OBSTETRICS) No Open Scheduling, Background documented as of this encounter Results * Aldolase (07/06/2025 11:56 AM EST) ALDOLASE 3.2 1.2 - 7.6 U/L 07/08/2025 11:08 AM EST [facility] Blood Venous blood specimen / Unknown Venipuncture / Unknown 07/06/2025 11:56 AM EST 07/06/2025 11:56 AM EST Narrative [facility] ([place] - 07/08/2025 11:08 AM EST REFERENCE INTERVAL: Aldolase Access complete set of age- and/or gender-specific reference intervals for this test in the [facility] Laboratory Test Directory ([employer]). Performed By: [facility] [address] [place] [address] Sample Cutter: Wilber Pardo MD, PhD CLIA Number: [id number] Jill CELESTE LAB BLOOD ORDERABLES Susannah l Result [facility] [address] [place] [address] * Creatine Kinase (CK), Total (07/06/2025 11:56 AM EST) Creatine Kinase, Plasma 77 37 - 168 U/L 07/06/2025 1:54 PM EST [facility] Blood Venous blood specimen / Unknown Venipuncture / Unknown 07/06/2025 11:56 AM EST 07/06/2025 11:56 AM EST Jill CELESTE LAB BLOOD ORDERABLES Susannah l Result Performing Organization Address City/[facility]/ZIP Co de Phone Number [facility] [address] [place] [address] * Cyclic Citrul Peptide Antibody IgG (07/06/2025 11:56 AM EST) Cyclic Citrul Peptide Antibody IgG <5.0 <=5.0 U/mL 07/06/2025 3:06 PM EST [facility] Blood Venous blood specimen / Unknown Venipuncture / Unknown 07/06/2025 11:56 AM EST 07/06/2025 11:56 AM EST Jill CELESTE LAB BLOOD ORDERABLES Susannah l Result [facility] [address] [place] [address] * Rheumatoid Factor, Plasma (07/06/2025 11:56 AM EST) Rheumatoid Factor, Plasma <10 <14 IU/mL 07/06/2025 1:54 PM EST [facility] Blood Venous blood specimen / Unknown Venipuncture / Unknown 07/06/2025 11:56 AM EST 07/06/2025 11:56 AM EST Jill CELESTE LAB BLOOD ORDERABLES Susannah l Result [facility] [address] [place] [address] * (ABNORMAL) Lupus Anticoagulant Profile (07/06/2025 11:56 AM EST) Pathologist [facility] Lupus Anticoagulant Result Lupus anticoagulant (LA) not detected by either LA-sensitive aPTT or dRVVT assays. If clinical suspicion for antiphospholipid syndrome is high, consider testing for antibodies against cardiolipin and [id number] n I. 07/06/2025 4:01 PM EST [facility] aPTT Lupus Anticoagulant Sensitive 41.9(H) <=41.0 sec LAB COAGULATION METHOD 07/06/2025 4:01 PM EST [facility] Staclot without Phospholipid 48.0 sec LAB COAGULATION METHOD 07/06/2025 4:01 PM EST [facility] Staclot with Phospholipid 44.9 sec LAB COAGULATION METHOD 07/06/2025 4:01 PM EST [facility] Staclot Delta 3.1 <8.0 sec LAB COAGULATION METHOD 07/06/2025 4:01 PM EST [facility] DRVVT Screen 40.1 sec LAB COAGULATION METHOD 07/06/2025 4:01 PM EST [facility] DRVVT Screen Ratio 1.01 <1.20 LAB COAGULATION METHOD 07/06/2025 4:01 PM EST [facility] Blood Venous blood specimen / Unknown Venipuncture / Unknown 07/06/2025 11:56 AM EST 07/06/2025 11:56 AM EST Jill CELESTE LAB BLOOD ORDERABLES Susannah l Result [facility] [address] [place] [address] * Anticardiolipin IgG and IgM (07/06/2025 11:56 AM EST) IgG Anticardiolipin <1.60 <20.00 GPL Units/mL 07/06/2025 3:08 PM EST [facility] Anticardiolipin IgG Interpretation Negative Negative 07/06/2025 3:08 PM EST [facility] IgM Anticardiolipin <1.50 <20.00 MPL Units/mL 07/06/2025 3:08 PM EST [facility] Anticardiolipin IgM Interpretation Negative Negative 07/06/2025 3:08 PM EST [facility] Blood Venous blood specimen / Unknown Venipuncture / Unknown 07/06/2025 11:56 AM EST 07/06/2025 11:56 AM EST Jill CELESTE LAB BLOOD ORDERABLES Susannah l Result Performing Organization Address City/[facility]/ZIP Co de Phone Number [facility] [address] [place] [address] * Cardiolipin antibody, IgA (07/06/2025 11:56 AM EST) Cardiolipin Antibody IgA <10 <=11 APL 07/08/2025 11:49 AM EST [facility] ([facility] [facility]) Blood Venous blood specimen / Unknown Venipuncture / Unknown 07/06/2025 11:56 AM EST 07/06/2025 11:56 AM EST Narrative [facility] ([facility] [facility]) - 07/08/2025 11:49 AM EST INTERPRETIVE INFORMATION: Cardiolipin Antibodies, IgA <=11 APL: Negative 12-19 APL: Indeterminate 20-80 APL: Low to Moderately Positive 81 APL or above: High Positive Performed By: [employer] [address] [place] [id number] Sample Cutter: Wilber Pardo MD, PhD CLIA Number: [id number] Jill CELESTE LAB BLOOD ORDERABLES Susannah l Result [employer]) [address] [place] [address] * Anti-Beta 2 Glycoprotein, IgG and IgM (07/06/2025 11:56 AM EST) Anti-Beta 2 Glycoprotein 1, IgG <1.4 <20.0 U/mL 07/06/2025 3:08 PM EST [facility] Anti-Beta 2 Glycoprotein IgG Interpretation Negative Negative 07/06/2025 3:08 PM EST [facility] Anti-Beta 2 Glycoprotein 1, IgM <1.5 <20.0 U/mL 07/06/2025 3:08 PM EST [facility] Anti-Beta 2 Glycoprotein IgM Interpretation Negative Negative 07/06/2025 3:08 PM EST [facility] Blood Venous blood specimen / Unknown Venipuncture / Unknown 07/06/2025 11:56 AM EST 07/06/2025 11:56 AM EST Jill [facility] BLOOD ORDERABLES Susannah l Result [facility] [address] [place] [address] * Beta-2 Glycoprotein 1 Antibody, IgA (07/06/2025 11:56 AM EST) Pathologist [facility] [id number], IgA Antibody <10 <=20 PREETI 07/08/2025 2:28 PM EST [facility] ([employer]) Serum 07/06/2025 11:5 6 AM EST 07/06/2025 11:56 AM EST Narrative [facility] ([employer]) - 07/08/2025 2:28 PM EST Performed By: [employer] [address] [place] [address] Sample Cutter: Wilber Pardo MD, PhD CLIA Number: [id number] Jill [facility] BLOOD ORDERABLES Susannah l Result [facility] ([employer]) [address] [place] [id number] * ANCA Vasculitis Profile (07/06/2025 11:56 AM EST) Myeloperoxidase (MPO) Ab, IgG 0 0 - 19 AU/mL 07/10/2025 4:45 AM EST [facility] ([facility]) Serine Proteinase 3 (PR3) Ab, IgG 1 0 - 19 AU/mL 07/10/2025 4:45 AM EST [facility] ([facility]) ANCA IFA Titer <1:20 <1:20 07/10/2025 4:45 AM EST [facility] ([facility]) ANCA IFA Pattern None Detected None Detected 07/10/2025 4:45 AM EST [facility] ([facility]) Blood Venous blood specimen / Unknown Venipuncture / Unknown 07/06/2025 11:56 AM EST 07/06/2025 11:56 AM EST [facility] - 07/10/2025 4:45 AM EST INTERPRETIVE INFORMATION: Myeloperoxidase Abs, IgG 19 AU/mL or Less ......... Negative 20-25 AU/mL .............. Equivocal 26 AU/mL or Greater ...... Positive Approximately 90% of patients with a P-ANCA pattern by IFA have antibodies specific for MPO. INTERPRETIVE INFORMATION: Serine Proteinase 3, IgG 19 AU/mL or Less ........ Negative 20-25 AU/mL ............. Equivocal 26 AU/mL or Greater ..... Positive Approximately 85% of patients with a C-ANCA pattern by IFA have antibodies specific for PR3. INTERPRETIVE INFORMATION: ANCA IFA Pattern Neutrophil Cytoplasmic Antibodies (C-ANCA = granular cytoplasmic staining, P-ANCA = perinuclear staining) are found in the serum of over 90 percent of patients with certain necrotizing systemic vasculitides, and usually in less than 5 percent of patients with collagen vascular disease or arthritis. Performed By: [employer] [address] [place] [address] Sample Cutter: Wilber Pardo MD, PhD CLIA Number: [id number] Jill [facility] BLOOD ORDERABLES Susannah l Result [facility] [employer]) [address] [place] [address] * (ABNORMAL) Thyroid Peroxidase Antibody (07/06/2025 11:56 AM EST) Thyroid Peroxidase Antibody 418(H) <=8 IU/mL 07/06/2025 3:11 PM EST [facility] Blood Venous blood specimen / Unknown Venipuncture / Unknown 07/06/2025 11:56 AM EST 07/06/2025 11:56 AM EST Jill [facility] BLOOD ORDERABLES Susannah l Result [facility] [address] [place] [address] * ENAI (07/06/2025 11:56 AM EST) Fair/SENIOR SHAREPOINT DEVELOPER (BRODY) Ab, IgG 3 0 - 19 Units 07/08/2025 10:03 AM EST [facility] Blood Venous blood specimen / Unknown Venipuncture / Unknown 07/06/2025 11:56 AM EST 07/06/2025 11:56 AM EST Narrative [facility] ([place]) - 07/08/2025 10:03 AM EST INTERPRETIVE INFORMATION: Fair/SENIOR SHAREPOINT DEVELOPER (BRODY) Antibody, IgG 19 Units or Less ............. Negative 20 to 39 Units ............... Weak Positive 40 to 80 Units ............... Moderate Positive 81 Units or greater .......... Strong Positive Fair/SENIOR SHAREPOINT DEVELOPER antibodies are frequently seen in patients with mixed connective tissue disease (MCTD) and are also associated with other systemic autoimmune rheumatic diseases (SARDs) such as systemic lupus erythematosus (SLE), systemic sclerosis, and myositis. Antibodies targeting the Fair/SENIOR SHAREPOINT DEVELOPER antigenic complex also recognize Fair antigens, therefore, the Fair antibody response must be considered when interpreting these results. Performed By: [employer] [address] [place] [address] Sample Cutter: Wilber Pardo MD, PhD CLIA Number: [id number] Jill [facility] BLOOD ORDERABLES Susannah l Result Performing Organization Address [facility]/ZIP Co de Phone Number [facility] [employer]) [address] [place] [address] * Fair (BRODY) Antibody, IgG (07/06/2025 11:56 AM EST) Fair (BRODY) Antibody, IgG 1 0 - 40 AU/mL 07/08/2025 3:19 PM EST [facility] [place] ([employer]) Serum 07/06/2025 11:5 6 AM EST 07/06/2025 11:56 AM EST Narrative [facility] ([employer]) - 07/08/2025 3:19 PM EST INTERPRETIVE INFORMATION: Fair (BRODY) Antibody, IgG 29 AU/mL or Less ............. Negative 30 - 40 AU/mL ................ Equivocal 41 AU/mL or Greater .......... Positive Fair antibody is highly specific (greater than 90 percent) for systemic lupus erythematosus (SLE) but only occurs in 30-35 percent of SLE cases. The presence of antibodies to Fair has variable associations with SLE clinical manifestations. Performed By: [employer] [address] [place] [address] Sample Cutter: Wilber Pardo MD, PhD CLIA Number: [id number] Jill [facility] REF LAB BLOOD AND FLU ID ORD Final Result Performing Organization Address City/[facility]/ZIP Co de Phone Number [facility] [employer]) [address] [place] [address] * ENAII (07/06/2025 11:56 AM EST) SSA-52 (RO52) (BRODY) Antibody, IgG 1 0 - 40 AU/mL 07/08/2025 3:19 PM EST [facility] ([employer]) SSA-60 (RO60) (BRODY) Antibody, IgG 0 0 - 40 AU/mL 07/08/2025 3:19 PM EST [facility] [employer]) SSB ([place]) (BRODY) Antibody, IgG 0 0 - 40 AU/mL 07/08/2025 3:19 PM EST [facility] ([employer]) Blood Venous blood specimen / Unknown Venipuncture / Unknown 07/06/2025 11:56 AM EST 07/06/2025 11:56 AM EST Narrative [facility]) - 07/08/2025 3:19 PM EST INTERPRETIVE INFORMATION: SSA-52 (Ro52) (BRODY) Antibody, IgG 29 AU/mL or Less ............. Negative 30 - 40 AU/mL ................ Equivocal 41 AU/mL or Greater .......... Positive SSA-52 (Ro52) and/or SSA-60 (Ro60) antibodies are associated with a diagnosis of Sjogren syndrome, systemic lupus erythematosus (SLE), and systemic sclerosis. SSA-52 antibody overlaps significantly with the major SSc-related antibodies. SSA-52 (Ro52) antibody occurs frequently in patients with inflammatory myopathies, often in the presence of interstitial lung disease. REFERENCE INTERVAL: SSA-60 (Ro60) (BRODY) Antibody, IgG 29 AU/mL or Less ............. Negative 30 - 40 AU/mL ................ Equivocal 41 AU/mL or Greater .......... Positive INTERPRETIVE INFORMATION: SSB ([place]) (BRODY) Ab, IgG 29 AU/mL or Less ............. Negative 30 - 40 AU/mL ................ Equivocal 41 AU/mL or Greater .......... Positive SSB (La) antibody is seen in 50-60% of Sjogren syndrome cases and is specific if it is the only BRODY antibody present. 15-25% of patients with systemic lupus erythematosus (SLE) and 5-10% of patients with progressive systemic sclerosis (PSS) also have this antibody. Performed By: [employer] [address] [place] [address] Sample Cutter: Wilber Pardo MD, PhD CLIA Number: [id number] Jill [facility] BLOOD ORDERABLES Susannah l Result [facility] ([facility]) [address] [place] [address] * C4 Complement (07/06/2025 11:56 AM EST) C4 Complement 24 13 - 36 mg/dL 07/06/2025 2:11 PM EST [facility] Blood Venous blood specimen / Unknown Venipuncture / Unknown 07/06/2025 11:56 AM EST 07/06/2025 11:56 AM EST Jill [facility] BLOOD ORDERABLES Susannah l Result Performing Organization Address City/[facility]/ZIP Co de Phone Number [facility] [address] [place] [address] * C3 Complement (07/06/2025 11:56 AM EST) C3 Complement 157 84 - 166 mg/dL 07/06/2025 2:11 PM EST [facility] Blood Venous blood specimen / Unknown Venipuncture / Unknown 07/06/2025 11:56 AM EST 07/06/2025 11:56 AM EST Jill [facility] BLOOD ORDERABLES Susannah l Result [facility] [address] [place] [address] * Double-Stranded DNA (dsDNA) Antibody, IgG by IFA (07/06/2025 11:56 AM EST) Double-Strande d DNA (dsDNA) Ab IgG IFA <1:10 <1:10 07/09/2025 9:18 PM EST [facility] ([place]) Blood Venous blood specimen / Unknown Venipuncture / Unknown 07/06/2025 11:56 AM EST 07/06/2025 11:56 AM EST Narrative [facility] [employer]) - 07/09/2025 9:18 PM EST INTERPRETIVE INFORMATION: Double-Stranded DNA (dsDNA) Antibody, IgG by IFA (using Crithidia luciliae) Positivity for anti-double stranded DNA (anti-dsDNA) IgG antibody is a diagnostic criterion of systemic lupus erythematosus (SLE). The presence of the anti-dsDNA IgG antibody is identified by IFA titer (Crithidia luciliae indirect fluorescent test [MAKI]). MAKI is highly specific for SLE with a sensitivity of 50-60 percent. Some patients with early or inactive SLE may be positive for anti-dsDNA IgG by JAHAIRA but negative by MAKI. If the MAKI result is negative but the patient has a positive JAHAIRA and clinical suspicion remains, consider antinuclear antibody (ERI) testing by IFA. Additional information and recommendations for testing may be found at [email or web address]://[email or web address]/stkjtitjkz-eonxwj-pyfontic. Performed By: [employer] [address] [place] [address] Sample Cutter: Wilber Pardo MD, PhD CLIA Number: [id number] Jill [facility] BLOOD ORDERABLES Susannah l Result [facility] [employer]) [address] [place] [address] * (ABNORMAL) Antinuclear Antibody (ERI), HEp-2, IgG (07/06/2025 11:56 AM EST) ERI INTERPRETIVE COMMENT See Note 07/08/2025 11:31 PM EST [facility] [place] ([employer]) Anti Nuc Ab Screen Detected( H) <1:80 07/08/2025 11:31 PM EST [facility] [employer]) Blood Venous blood specimen / Unknown Venipuncture / Unknown 07/06/2025 11:56 AM EST 07/06/2025 11:56 AM EST Narrative [facility] [employer]) - 07/08/2025 11:31 PM EST Clinical Interpretation: Homogeneous Pattern Clinical associations: SLE, drug-induced SLE or MICHELLE. Main autoantibodies: Anti-dsDNA, anti-histones or anti-chromatin (anti-nucleosome) List of Abbreviations Antimitochondrial antibodies (AMA), Antisynthetase syndrome (ARS), chronic active hepatitis (CAH), inflammatory myopathies (IM) [dermatomyositis (DM), polymyositis (PM), necrotizing autoimmune myopathy (NAM)], interstitial lung disease (ILD), juvenile idiopathic arthritis (MICHELLE), mixed connective tissue disease (MCTD), primary biliary cholangitis (PBC), rheumatoid arthritis (RA), systemic autoimmune rheumatic diseases (SARD), Sjogren syndrome (SjS), systemic lupus erythematosus (SLE), systemic sclerosis (SSc), undifferentiated connective tissue disease (UCTD). INTERPRETIVE INFORMATION: ERI Interpretive Comment Presence of antinuclear antibodies (ERI) is a hallmark feature of systemic autoimmune rheumatic diseases (SARD). However, ERI lacks diagnostic specificity and is associated with a variety of diseases (cancers, autoimmune, infectious, and inflammatory conditions) and may also occur in healthy individuals in varying prevalence. The lack of diagnostic specificity requires confirmation of positive ERI by more specific serologic tests. ERI (nuclear reactivity) positive patterns reported include centromere, homogeneous, nuclear dots, nucleolar, or speckled. ERI (cytoplasmic reactivity) positive patterns reported include reticular/AMA, discrete/GW body-like, polar/golgi-like, cytoplasmic speckled or rods and rings. All positive patterns are reported to endpoint titers (1:2560). Reported patterns may help guide differential diagnosis, although they may not be specific for individual antibodies or diseases. Mitotic staining patterns not reported. Negative results do not necessarily rule out SARD. Performed By: [employer] [address] [place] [address] Sample Cutter: Wilber Pardo MD, PhD CLIA Number: [id number] Jill [facility] BLOOD ORDERABLES Susannah l Result [facility] ([employer]) [address] [place] [address] * Sedimentation Rate, Automated (07/06/2025 11:56 AM EST) Sedimentation Rate 15 <20 mm/hr 2024 1:34 PM EST [facility] Blood Venous blood specimen / Unknown Venipuncture / Unknown 07/06/2025 11:56 AM EST 07/06/2025 11:56 AM EST Jill [facility] BLOOD ORDERABLES Susannah l Result Performing Organization Address City/[facility]/ZIP Co de Phone Number [facility] [address] [place] [address] * C-Reactive Protein, Plasma (07/06/2025 11:56 AM EST) CRP, Plasma <3.0 <=8.0 mg/L 07/06/2025 1:54 PM EST [facility] Blood Venous blood specimen / Unknown Venipuncture / Unknown 07/06/2025 11:56 AM EST 07/06/2025 11:56 AM EST Narrative [facility] - 07/06/2025 1:54 PM EST This CRP test is appropriate for assessment of infection, systemic inflammation and/or tissue injury. To assess cardiovascular disease risk order high sensitivity CRP (CRPH). Jill [facility] BLOOD ORDERABLES Susannah l Result Performing Organization Address [facility] Co de Phone Number [facility] [address] [place] [address] * (ABNORMAL) Comprehensive Metabolic Panel, Plasma (07/06/2025 11:56 AM EST) Glucose, Plasma 85 74 - 99 mg/dL 07/06/2025 1:54 PM EST [facility] BUN, Plasma 8 7 - 21 mg/dL 07/06/2025 1:54 PM EST [facility] Creatinine, Plasma 0.72 0.60 - 1.10 mg/dL 07/06/2025 1:54 PM EST [facility] BUN/Creatinine Ratio 11 07/06/2025 1:54 PM EST [facility] Sodium, Plasma 140 136 - 145 mmol/L 07/06/2025 1:54 PM EST [facility] Potassium, Plasma 4.1 3.6 - 4.9 mmol/L 07/06/2025 1:54 PM EST [facility] Chloride, Plasma 106 97 - 107 mmol/L 07/06/2025 1:54 PM EST [facility] CO2, Plasma 20(L) 22 - 29 mmol/L 07/06/2025 1:54 PM EST [facility] Anion Gap 14 6 - 16 mmol/L 07/06/2025 1:54 PM EST [facility] Total Calcium, Plasma 9.1 8.9 - 10.2 mg/dL 07/06/2025 1:54 PM EST [facility] Total Protein 7.6 6.3 - 7.9 g/dL 07/06/2025 1:54 PM EST [facility] Albumin, Plasma 4.4 3.5 - 5.2 g/dL 07/06/2025 1:54 PM EST [facility] AST, Plasma 17 10 - 35 U/L 07/06/2025 1:54 PM EST [facility] ALT, Plasma 16 10 - 35 U/L 07/06/2025 1:54 PM EST [facility] Alkaline Phosphatase, Plasma 57 35 - 104 U/L 07/06/2025 1:54 PM EST [facility] Total Bilirubin, Plasma 1.4(H) 0.2 - 1.1 mg/dL 07/06/2025 1:54 PM EST [facility] eGFRcr 117.7 mL/min/1.7 3m*2 07/06/2025 1:54 PM EST [facility] Comment:Reported eGFRcr in m L/min/1.73m2 is based the CKD-EPI 2020 equation that does not use a race coefficient. Blood Venous blood specimen / Unknown Venipuncture / Unknown 07/06/2025 11:56 AM EST 07/06/2025 11:56 AM EST us Jill [facility] LAB BLOOD ORDERABLES Susannah l Result [facility] [address] [place] [address] * (ABNORMAL) CBC and Differential (07/06/2025 11:56 AM EST) WBC Count 6.11 3.70 - 10.30 10*3/uL LAB HEMATOLOGY METHOD 07/06/2025 1:12 PM EST [facility] RBC Count 4.64 3.90 - 5.20 10*6/uL LAB HEMATOLOGY METHOD 07/06/2025 1:12 PM [facility] HGB 12.9 11.2 - 15.7 g/dL LAB HEMATOLOGY METHOD 07/06/2025 1:12 PM [facility] HCT 39.6 34.0 - 45.0 % LAB HEMATOLOGY METHOD 07/06/2025 1:12 PM [facility] Platelet Count 183 155 - 369 10*3/uL LAB HEMATOLOGY METHOD 07/06/2025 1:12 PM [facility] MCV 85 79 - 98 fL LAB HEMATOLOGY METHOD 07/06/2025 1:12 PM [facility] MCH 27.8 26.0 - 32.0 pg LAB HEMATOLOGY METHOD 07/06/2025 1:12 PM [facility] MCHC 32.6 30.7 - 35.5 g/dL LAB HEMATOLOGY METHOD 07/06/2025 1:12 PM [facility] RDW 13.9 11.5 - 14.5 % LAB HEMATOLOGY METHOD 07/06/2025 1:12 PM [facility] MPV 12.4 8.8 - 12.5 fL LAB HEMATOLOGY METHOD 07/06/2025 1:12 PM [facility] nRBC 0.0 <=0.0 per 100 WBCs LAB HEMATOLOGY METHOD 07/06/2025 1:12 PM [facility] Differential Type Automated LAB HEMATOLOGY METHOD 07/06/2025 1:12 PM [facility] Neutrophils % 66 % LAB HEMATOLOGY METHOD 07/06/2025 1:12 PM [facility] Lymphocytes % 28 % LAB HEMATOLOGY METHOD 07/06/2025 1:12 PM [facility] Monocytes % 4 % LAB HEMATOLOGY METHOD 07/06/2025 1:12 PM [facility] Eosinophils % 1 % LAB HEMATOLOGY METHOD 07/06/2025 1:12 PM [facility] Basophils % 1 % LAB HEMATOLOGY METHOD 07/06/2025 1:12 PM [facility] Immature Granulocytes % 0 % LAB HEMATOLOGY METHOD 07/06/2025 1:12 PM [facility] Neutrophils Absolute 4.05 1.60 - 6.10 10*3/uL LAB HEMATOLOGY METHOD 07/06/2025 1:12 PM EST [facility] Lymphocytes Absolute 1.68 1.20 - 3.90 10*3/uL LAB HEMATOLOGY METHOD 07/06/2025 1:12 PM EST [facility] Monocytes Absolute 0.27(L) 0.30 - 0.90 10*3/uL LAB HEMATOLOGY METHOD 07/06/2025 1:12 PM EST [facility] Eosinophils Absolute 0.04 0.00 - 0.50 10*3/uL LAB HEMATOLOGY METHOD 07/06/2025 1:12 PM EST [facility] Basophils Absolute 0.05 0.00 - 0.10 10*3/uL LAB HEMATOLOGY METHOD 07/06/2025 1:12 PM EST [facility] Immature Granulocytes Absolute 0.02 0.00 - 0.06 10*3/uL LAB HEMATOLOGY METHOD 07/06/2025 1:12 PM EST [facility] Blood Venous blood specimen / Unknown Venipuncture / Unknown 07/06/2025 11:56 AM EST 07/06/2025 11:56 AM EST Narrative [facility] - 07/06/2025 1:12 PM EST Therapeutic decision making should be based on absolute values, rather than percentages. Jill [facility] LAB BLOOD ORDERABLES Susannah oliva Result [facility] [address] [place] [address] * Centromere Antibody, IgG (07/06/2025 11:56 AM EST) Centromere Ab, IgG 0 0 - 40 AU/mL 07/08/2025 3:17 PM EST [facility] ([employer]) Blood Venous blood specimen / Unknown Venipuncture / Unknown 07/06/2025 11:56 AM EST 07/06/2025 11:56 AM EST Narrative [facility] ([employer]) - 07/08/2025 3:17 PM EST INTERPRETIVE INFORMATION: Centromere Ab, IgG 29 AU/mL or Less ............. Negative 30 - 40 AU/mL ................ Equivocal 41 AU/mL or Greater .......... Positive When detected by this multiplex bead assay, the presence of centromere antibodies is mainly associated with CREST syndrome, a variant of systemic sclerosis (SSc). These antibodies target the centromere B, a dominant antigen of the centromeric complex associated with the centromere pattern observed in antinuclear antibody (ERI) testing by IFA. Centromere antibodies may also be seen in a varying percentage of patients with other autoimmune diseases, including diffuse cutaneous SSc, Raynaud syndrome, interstitial pulmonary fibrosis, autoimmune liver disease, systemic lupus erythematosus (SLE) and rheumatoid arthritis (RA). A negative result indicates no detectable IgG antibodies to centromere B. If the result is negative but clinical suspicion for SSc is strong, consider testing for ERI by IFA along with other antibodies associated with SSc, including Scl-70, U3-SENIOR SHAREPOINT DEVELOPER, PM/Scl, or Th/To. Performed By: [facility] [address] [place] [address] Sample Cutter: Wilber Pardo MD, PhD CLIA Number: [id number] Jill [facility] LAB BLOOD ORDERABLES Susannah l Result [facility]) [address] [place] [address] * RNA Polymerase III Antibody, IgG (07/06/2025 11:56 AM EST) Pathologist [facility] RNA Polymerase III Antibody, IgG 4 0 - 19 Units 07/08/2025 6:52 PM EST [facility]) Blood Venous blood specimen / Unknown Venipuncture / Unknown 07/06/2025 11:56 AM EST 07/06/2025 11:56 AM EST Narrative [facility]) - 07/08/2025 6:52 PM EST INTERPRETIVE INFORMATION: RNA Polymerase III Antibody, IgG 19 Units or less ......Negative 20 - 39 Units .........Weak Positive 40 - 80 Units .........Moderate Positive 81 Units or greater ...Strong Positive The presence of RNA polymerase III IgG antibody, when considered in conjunction with other laboratory and clinical findings, is an aid in the diagnosis of systemic sclerosis (SSc) with increased incidence of skin involvement and renal crisis with the diffuse cutaneous form of SSc. RNA polymerase III IgG antibody occur in about 11-23 percent of SSc patients, and typically in the absence of anti-centromere and anti-Scl-70 antibodies. A negative result indicates no detectable IgG antibodies to the dominant antigen of RNA polymerase III and does not rule out the possibility of SSc. False-positive results may also occur due to non-specific binding of immune complexes. Strong clinical correlation is recommended. If clinical suspicion remains, consider additional testing for other antibodies associated with SSc, including centromere, Scl-70, U3-SENIOR SHAREPOINT DEVELOPER, PM/Scl, or Th/To. Performed By: [employer] [address] [place] [address] Sample Cutter: Wilber Pardo MD, PhD CLIA Number: [id number] Jill [facility] LAB BLOOD ORDERABLES Susannah l Result [facility] [employer]) [address] [place] [address] * Anti-scleroderma antibody (07/06/2025 11:56 AM EST) SCLERODERMA (SCL-70) (BRODY) ANTIBODY, IGG 2 0 - 40 AU/mL 07/08/2025 3:19 PM EST [facility] ([employer]) Blood Venous blood specimen / Unknown Venipuncture / Unknown 07/06/2025 11:56 AM EST 07/06/2025 11:56 AM EST Narrative [facility]) - 07/08/2025 3:19 PM EST INTERPRETIVE INFORMATION: Scleroderma (Scl-70) (BRODY) Ab, IgG 29 AU/mL or Less ............. Negative 30 - 40 AU/mL ................ Equivocal 41 AU/mL or Greater .......... Positive The presence of Scl-70 antibodies (also referred to as topoisomerase I, jorgito-I or ENRIKE) is considered diagnostic for systemic sclerosis (SSc). Scl-70 antibodies alone are detected in about 20 percent of SSc patients and are associated with the diffuse form of the disease, which may include specific organ involvement and poor prognosis. Scl-70 antibodies have also been reported in a varying percentage of patients with systemic lupus erythematosus (SLE). Scl-70 (jorgito-1) is a DNA binding protein and anti-DNA/DNA complexes in the sera of SLE patients may bind to jorgito-I, leading to a false-positive result. The presence of Scl-70 antibody in sera may also be due to contamination of recombinant Scl-70 with DNA derived from cellular material used in immunoassays. Strong clinical correlation is recommended if both Scl-70 and dsDNA antibodies are detected. Negative results do not necessarily rule out the presence of SSc. If clinical suspicion remains, consider further testing for centromere, RNA polymerase III and U3-SENIOR SHAREPOINT DEVELOPER, PM/Scl, or Th/To antibodies. Performed By: [facility] [address] [place] [address] Sample Cutter: Wilber Pardo MD, PhD CLIA Number: [id number] Jill [facility] LAB BLOOD ORDERABLES Susannah pj Result [facility] ([place]) [address] [place] [address] * (ABNORMAL) Urinalysis with reflex microscopic (Culture NOT Included) (07/06/2025 11:50 AM EST) Color, Urine Yellow LAB URINALYSIS - AUTOMATED METHOD 07/06/2025 1:06 PM [facility] Clarity, Urine Cloudy LAB URINALYSIS - AUTOMATED METHOD 07/06/2025 1:06 PM EST [facility] Spec [place], Urine 1.016 1.005 - 1.030 LAB URINALYSIS - AUTOMATED METHOD 07/06/2025 1:06 PM EST [facility] pH, Urine 6.0 5.0 - 8.0 LAB URINALYSIS - AUTOMATED METHOD 07/06/2025 1:06 PM EST [facility] Protein, Urine Negative Negative mg/dL LAB URINALYSIS - AUTOMATED METHOD 07/06/2025 1:06 PM EST [facility] Glucose, Urine Negative Negative mg/dL LAB URINALYSIS - AUTOMATED METHOD 07/06/2025 1:06 PM EST [facility] Ketones, Urine Negative Negative mg/dL LAB URINALYSIS - AUTOMATED METHOD 07/06/2025 1:06 PM [facility] Blood, Urine Trace(A) Negative LAB URINALYSIS - AUTOMATED METHOD 07/06/2025 1:06 PM EST [facility] Bilirubin, Urine Negative Negative LAB URINALYSIS - AUTOMATED METHOD 07/06/2025 1:06 PM [facility] Urobilinogen, Urine 1.0 0.2 to 1.0 mg/dL LAB URINALYSIS - AUTOMATED METHOD 07/06/2025 1:06 PM EST [facility] Leukocytes, Urine Large(A) Negative LAB URINALYSIS - AUTOMATED METHOD 07/06/2025 1:06 PM [facility] Nitrite, Urine Negative Negative LAB URINALYSIS - AUTOMATED METHOD 07/06/2025 1:06 PM [facility] RBC, Urine 1 0 to 3 /HPF LAB URINALYSIS - AUTOMATED METHOD 07/06/2025 1:06 PM [facility] WBC, Urine >50(A) 0 to 5 /HPF LAB URINALYSIS - AUTOMATED METHOD 07/06/2025 1:06 PM EST [facility] Squamous Epithelial Cells >20(A) 0 to 5 /HPF LAB URINALYSIS - AUTOMATED METHOD 07/06/2025 1:06 PM [facility] Hyaline Casts 0 - 2 0 to 5 /LPF LAB URINALYSIS - AUTOMATED METHOD 07/06/2025 1:06 PM [facility] Bacteria, Urine Present Negative LAB URINALYSIS - AUTOMATED METHOD 07/06/2025 1:06 PM [facility] Urine Urine specimen obtained by clean catch procedure / Unknown Non-blood Collection / Unknown 07/06/2025 11:50 AM EST 07/06/2025 11:50 AM EST us Jill [facility] URINE ORDERABLES Susannah oliva Result [facility] [address] [place] [address] * Protein, Random, Urine with Creatinine (07/06/2025 11:50 AM EST) Protein, Urine 8 mg/dL 07/06/2025 1:27 PM [facility] Creatinine, Urine 125 mg/dL 07/06/2025 1:27 PM EST [facility] Protein/Creatin ine Ratio 0.1 mg/mg Creat 07/06/2025 1:27 PM EST [facility] Urine Urine specimen obtained by clean catch procedure / Unknown Non-blood Collection / Unknown 07/06/2025 11:50 AM EST 07/06/2025 11:50 AM EST Jill [facility] URINE ORDERABLES Susannah oliva Result [facility] [address] [place] [address] documented in this encounter Visit Diagnoses Diagnosis Raynaud's disease without gangrene- Primary Livedo reticularis Pallor Myalgia Unspecified myalgia and myositis POTS (postural orthostatic tachycardia syndrome) Unspecified tachycardia Dizziness Dizziness and giddiness documented in this encounter Additional Health Concerns Active Problems Noted Date Diagnosed Date CPM S22 PP LABOR (OBSTETRICS) 02/24/2024 Assessment Noted Time PHQ-9 Depression Total Score: 0 07/06/20 10:33 AM EST A fall risk assessment has been complete d for the patient 07/06/2025 10:33 AM EST A Body Mass Index follow-up plan has been documented for the patient 07/06/2025 11:43 AM EST documented as of this encounter Care Teams School Crossing Guard Supervisor Relationship Specialty Start Date End Date Padmini Wyatt APRN [address] [place] [address] PCP - General 06/26/25 Angela Oleary, RN [facility] None Registered Nurse Cardiology 02/17/24 documented as of this encounter
--- NOTE | 2025-07-14 08:44 | US_ITS ---
FINAL REPORT CLINICAL HISTORY: GILBERTS SYNDROME FINDINGS: Sonographic images of the right upper quadrant were obtained. The pancreas is partially obscured.The liver has an unremarkable appearance. The gallbladder is surgically absent. There is no evidence of biliary ductal dilatation.The common duct measures 3 mm. Limited images of the right kidney are unremarkable. IMPRESSION: No acute abnormality. Reviewed, Interpreted and Dictated by Tristan South MD Transcribed by Deb Montana Authenticated and [facility]
--- OUTSIDE RECORDS SUMMARY | 2025-07-14 08:46 | XMS_ITS | Encounter Summary ---
Author Organization Healthcare Address [address] [place] [address] Care Team Providers Care Electric Lift Truck Driver Name Role Phone Angela Oleary RN Unavailable Unavailable Rey Wyatt MD Primary Care Provider [phone] Encounter Details Date Type Department Care Team (Late st Contact Info) Description 05/19/2025 Orders Only External Location [address] [place] [address] Camryn Sun, DO [address] [place] [address] Social History Tobacco Use Types Packs/Day Years [...] a group home (including now)? No 02/09/2024 [place] Depression Scale Answer Date Recorded [place] Depression Scale Total 6 08/08/2024 The thought [...] first t casi in the morning (EYE-WEB CONTENT EXECUTIVE) to steady your nerves or to get rid of a hangover? 0 07/16/2024 CAGE Questionnaire Score 0 024 Utilities Answer Date Recorded In the past 12 months has th e [employer], gas, oil, or water company threatened to shut off services in your home? No 02/09/2024 Comments No Sex and Gender Information Value Date Recorded Sex Assigned at Not on file Legal Sex Female 7:36 PM EDT Gender Identity Not on file Sexual Orientation Not on file documented as of this encounter Functional Status * Question Answer [...] Debra Cheng RN documented in this encounter Plan of Treatment Upcoming Encounters Date Type Department Care Team (Late st Contact Info) Description 08/08/2025 1:20 PM EST Office Visit [facility] [address] [place] [address] Antoine Manrique MD [address] [place] [address] 08/28/2025 10:40 AM EST Office Visit [facility] [place] [address], [address] [place] [address] Courtney Torres MD [address] [place] [address] 09/12/2025 12:20 PM EST Office Visit [facility] [address] [place] [address] Jessica Mcdonnell PA [address] [place] [address] 11/07/2025 2:00 PM EDT Office Visit [facility] [address] [place] [address] Maddie Mtz PA [address] [place] [address] documented as of this encounter Goals Goal Patient Goal Type Associated Problems Recent Progress Patient-Stated? Author Delayed Delivery Care Plan CPM S22 PP LABOR (OBSTETRICS) No Open Scheduling, Background documented as of this encounter Procedures Procedure Name Priority Date/Time Associated Diagnosis Comments CT OUTSIDE IMAGES 05/19/2025 4:40 PM EDT documented in this encounter Results * CT OUTSIDE IMAGES (05/19/2025 4:40 PM EDT) Anatomical Region Laterality Modality Computed Tomogra phy 05/19/2025 4:40 PM EDT us Camryn Sun DO IMG CT PROCEDURES Edited Result - Final documented in this encounter Visit Diagnoses Not [...] as of this encounter Care Teams Electric Lift Truck Driver Relationship Specialty Start Date End Date Rey Wyatt MD [address] [facility] [address] [place] [address] PCP - General 11/16/24 06/25/25 Angela Oleary, RN [facility] None Registered Nurse Cardiology 02/17/24 documented as of this encounter
--- OUTSIDE RECORDS SUMMARY | 2025-07-14 08:46 | XMS_ITS | Encounter Summary ---
Author Organization Healthcare Address [address] [place] [address] Care Team Providers Care Sander Portable Machine Name Role Phone Angela Oleary RN Unavailable Unavailable Rey Wyatt MD Primary Care Provider [phone] Encounter Details Date Type Department Care Team ([facility] st Contact Info) Description 05/19/2025 Orders Only External Location [address] [place] [address] Provider, External Social History Tobacco Use Types Packs/Day Years Used Date Smoking Tobacco: Former Cigarettes 0.3 2021 Passive Smoke Exposure: Never Smokeless Tobacco: [...] 0 12/15/2024 [facility] - [...] a long term (including now)? 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 0 07/16/2024 CAGE Questionnaire Score 0 024 Utilities Answer Date Recorded In the past 12 months has e [employer], gas, oil, or water [employer] threatened to shut off services in your home? No 02/09/2024 Comments No Sex and Gender Information Value Date Recorded Sex Assigned at Not on file Legal Sex Female 7:36 PM EDT Gender Identity Not on file Sexual Orientation Not on file documented as of this encounter Functional Status * Question Answer Date of Assessment Author Precautions Fall risk 05/21/2025 8:00 AM EDT Klever toro, aJcquelin Miller, SYDNI * AUDIT-C Score Answer Date of Assessment [...] Behavior (Lifetime) No 05/21/2025 8:00 AM EDT Jaqcuelin Serrano LPN documented as of this encounter [...] Description 08/08/2025 1:20 PM EST Office Visit [facility] Medicine Specialties [address] [place] [address] Antoine Manrique MD [address] [place] [id number] 08/28/2025 10:40 AM EST Office Visit [facility] [place] [address], [address] [place] [address] Courtney Torres MD [address] [place] [address] 09/12/2025 12:20 PM EST Office Visit [facility] Specialties [address] [place] [address] Jessica Mcdonnell, PA [address] [place] [address] 11/07/2025 2:00 PM EDT Office Visit [facility] Specialties [address] [place] [address] Maddie Mtz PA [address] [place] [address] documented as of this encounter Goals Goal Patient Goal Type Associated Problems Recent Progress Patient-Stated? Author Delayed Delivery Care Plan CPM S22 PP LABOR (OBSTETRICS) No Open Scheduling, Background documented as of this encounter Procedures Procedure Name Priority Date/Time Associated Diagnosis Comments CT NEURO OUTSIDE IMAGES 05/19/2025 4:43 PM EDT documented in this encounter Results * CT NEURO OUTSIDE IMAGES (05/19/2025 4:43 PM EDT) Anatomical Region Laterality Modality Computed Tomogra phy 05/19/2025 us External Provider IMG CT PROCEDURES Edited Resul t - Final documented in this encounter Visit Diagnoses Not on filedocumented in this encounter Additional Health Concerns Active Problems Noted Date Diagnosed Date CPM S22 PP LABOR (OBSTETRICS) 02/24/2024 Assessment Noted Time PHQ-9 Depression Total Score: 2 05/22/20 25 2:22 PM EDT A fall risk assessment has been complete d for the patient 04/04/2025 4:30 PM EDT A Body Mass Index follow-up plan has been documented for the patient 05/21/2025 3:17 PM EDT documented as of this encounter Care Teams Sander Portable Machine Relationship Specialty Start Date End Date Rey Wyatt MD [address] [place] [address] PCP - General 11/16/24 06/25/25 Angela Oleary, RN [facility] None Registered Nurse Cardiology 02/17/24 documented as of this encounter
--- OUTSIDE RECORDS SUMMARY | 2025-07-14 08:46 | XMS_ITS | Encounter Summary ---
Author Organization Healthcare Address [address] [place] [address] Care Team Providers Care Settlement Worker Name Role Phone Angela Oleary RN Unavailable Unavailable Rey Wyatt MD Primary Care Provider [phone] Encounter Details Date Type Department Care Team (Latest Contact Info) Description 05/20/2025 Travel Social History Tobacco Use Types Packs/Day [...] health care facility (including now)? 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 0 07/16/2024 CAGE Questionnaire Score 0 024 Utilities Answer Date Recorded In the past 12 months has th e [employer], gas, oil, or water [employer] threatened to shut off services in your home? No 02/09/2024 Comments No Sex and Gender Information Value Date Recorded Sex Assigned at Not on file Legal Sex Female 7:36 PM EDT Gender Identity Not on file Sexual Orientation Not on file documented as of this encounter Functional Status * Question Answer Date of Assessment Author Precautions Fall risk 05/20/2025 8:00 PM EDT Debra Cheng, JANELL * Calculated C-SSRS Risk Score (Lifetime/Recent) Answer Date of Assessment Author No Risk Indicated 05/20/2025 8:00 AM EDT Jacquelin Serrano LPN * Question Answer Date of Assessment Author 1. Wish to be (Past 1 Month) No 05/20/2025 8:00 AM EDT Jacquelin Serrano LPN 2. Non-Specific Active Suicidal Thoughts (Past 1 Month) No 05/20/2025 8:00 AM EDT Jacquelin Serrano LPN 6. Suicidal Behavior (Lifetime) No 05/20/2025 8:00 AM EDT Jacquelin Serrano LPN documented as of this encounter Mental Status * Question Answer Entry Date Author Precautions Fall risk 05/20/2025 8:00 PM EDT Debra Cheng RN * Question Answer Entry Date Author Scale Used [place] 05/20/2025 6:07 AM EDT Debra Cheng RN documented in this encounter Plan of Treatment Upcoming Encounters Date Type Department Care Team (Late st Contact Info) Description 08/08/2025 1:20 PM EST Office Visit [facility] Medicine Specialties [address] [place] [address] Antoine Manrique MD [address] [place], [place] [id number] 08/28/2025 10:40 AM EST [facility] [place] [address] [facility], [address] [place] [address] Courtney Torres MD [address] [place] [address] 09/12/2025 12:20 PM EST Office Visit [facility] Specialties [address] [place] [address] Jessica Mcdonnell PA [address] [place] [address] 11/07/2025 2:00 PM EDT Office Visit [facility] [address] [place] [address] Maddie Mtz, BOOKER [address] [place] [address] documented as of this encounter [...] documented as of this encounter Care Teams Settlement Worker Relationship Specialty [place] [address] [place] [address] [address] [place] [address] PCP - General 11/16/24 06/25/25 Angela Oleary, RN [facility] None Registered Nurse Cardiology 02/17/24 documented as of this encounter
--- OUTSIDE RECORDS SUMMARY | 2025-07-14 08:46 | XMS_ITS | Clinical Summary ---
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 Name Role Phone Angela Oleary RN Unavailable Unavailable Padmini Wyatt APRN Primary Care Provider [phone] Allergies Active Allergy Reactions Criticality Noted Date Comments Amoxicillin-Pot Clavulanate Swelling,Rash High 06/24/2022 Hydroxyzine Palpitations Low 02/16/2025 Diphenhydramine Palpitations Low 02/16/2025 Betamethasone Palpitations Medium 03/27/2024 Cinnamon Swelling High 01/22/2024 Mouth swelling Iv Contrast Other - please document in the comment field,Dizziness High 05/19/2025 Shaking, chest pain, dizziness, vomiting Penicillin G Swelling,Palpitations High 06/24/2022 Penicillins Palpitations Medium 11/16/2024 Medications Blood Glucose Monitoring Suppl (OneTouch Verio Reflect) w/Device kit 024 Active OneTouch Verio test strip 1 each by Other route as needed. 024 Active Lancets (PricelockTouch Delica Plus [id number]) misc 024 Active acetaminophen (Tylenol) 325 MG capsule Take 2 capsules (650 mg) by mouth every 6 (six) hours if needed for mild pain. 30 capsule 1 024 Active busPIRone (Buspar) 5 MG tablet Take 1 tablet (5 mg) by mouth every night. Takes at 8PM 30 tablet 025 Active cholecalciferol (Vitamin D-3) 50 MCG (2000 UT) capsule 025 Active Ventolin HFA 108 (90 Base) MCG/ACT inhaler Inhale 2 puffs 1 time as needed for shortness of breath. Active propranolol (Inderal) 20 MG tabletIndications :Pott's [...] tablet every 6 hours as needed. Active pyridostigmine (Mestinon) 30 MG tablet Take 1 tablet by mouth 2 times a day. 60 tablet 1 Active NON FORMULARY Take 1,000 mg by mouth daily. Sodium chloride tablets 1000 mg once daily by mouth Active midodrine (Proamatine) 5 MG tablet Take 1 tablet by mouth 3 times a day as needed (hypotension). 90 tablet 3 025 Active meclizine (Antivert) 25 MG tablet Take 0.5 tablets by mouth 3 times a day as needed for dizziness (Dizziness). 90 tablet 3 025 Active ketoconazole (NIZOral) 2 % cream as needed. Active cholecalciferol (Vitamin D3) 25 MCG (1000 UT) tablet as needed. Active sodium chloride 1 g tablet Take 1 tablet by mouth daily. Active dexlansoprazole (Dexilant) [address] capsule Take 1 capsule by mouth daily. Do not crush or chew. 30 capsule 5 Active ferrous sulfate 324 MG tablet delayed-release Take 1 tablet by mouth daily with breakfast. 30 tablet 2 Active PARoxetine CR (Paxil CR) 12.5 MG 24 hr tabletIndications :POTS Take 1 tablet by mouth every morning. Do not crush, chew, or split. 30 tablet 1 Active doxycycline (Vibramycin) 100 MG capsuleIndication s:Bacterial upper respiratory infection Take 1 capsule by mouth 2 times a day for 7 days. Take with at least 8 ounces (large glass) of water, do not lie down for 30 minutes after 14 capsule 2024 Additional Information Patient not taking.Reported on 06/19/2025 desvenlafaxine succinate er (Pristiq) 25 MG 24 hr tablet Take 1 tablet by mouth daily. 2024 Discontinued Hospital, Clinic, or Other Facility Administered Medication Ordered Dose Route Frequency Start Date End Date Status sodium chloride 0.9 % infusion 250 mLIndications:Supervision of high risk in second trimester 250 mL IV Once 03/30/2024 Active Active Problems Problem Noted Date Diagnosed Date Dizziness 05/20/2025 Postural orthostatic tachycardia syndrome (POTS) 02/18/2024 Pre-syncope 02/08/2024 Abnormal reflex 10/16/2023 Lumbago with sciatica, right side 09/22/2023 Genital herpes simplex 02/04/2023 Mixed stress and urge urinary incontinence 12/10 Gallstone 09/18/2022 Gilbert's syndrome 09/18/2022 Depression 08/04/2022 Anxiety 08/04/2022 Gastroesophageal reflux disease 08/04/2022 Resolved Problems Problem Noted Date Diagnosed Date Resolved Date Epigastric pain 04/07/2025 05/20/2025 Palpitations 08/17/2024 05/20/2025 and not yet deliver ed in third trimester 07/16/2024 05/20/2025 POTS (postural orthostatic t achycardia syndrome) 04/29/2024 05/20/2025 Elevated brain natriuretic p eptide (BNP) level 04/12/2024 05/20/2025 Hypertension affecting 04/12/2024 05/20/2025 Hypokalemia 04/12/2024 05/20/2025 Left ear impacted cerumen 04/12/2024 Severe malnutrition 03/14/2024 04/16/20 Overview (03/14/2024): ~16% wt loss x 4m; weight loss in setting of POTS, decreased oral intake, Gastroenteritis 03/11/2024 04/16/2025 14 weeks gestation of 02/08/2024 05/20/2025 Chest pain 02/05/2024 04/16/2025 Insomnia, unspecified 09/22/20232024 Diarrhea 05/19/2023 04/16/2025 Hematochezia 05/19/2023 04/16/2025 Melena 05/19/2023 04/16/2025 Nausea 05/19/2023 05/20/2025 Constipation 01/29/2023 05/20/2025 Encounters Date Type Department Care Team Description 07/10/2025 Results Follow-Up [facility] Medicine Specialties [address] [place] [address] Maddie Mtz PA 07/06/2025 10:[address] [facility] Medicine Specialties [address] [place] [address] Maddie Mtz PA Raynaud's disease without gangrene (Primary Dx); Livedo reticularis; Myalgia; POTS (postural orthostatic tachycardia syndrome); Dizziness 07/06/2025 Travel 06/28/2025 8:00 AM EST Office Visit [facility] [address] [place] [address] Kendy Sanchez APRN Syncope, unspecified syncope type (Primary Dx) 06/28/2025 Travel 06/26/2025 Telephone [facility] [place] [address], [address] [place] [address] Courtney Torres MD HCN - Patient Message 06/21/2025 10:12 AM EST - 06/21/2025 11:59 PM EST Hospital Encounter [facility] [address] [place] [address] Discharge Disposition: Home or Self Care 06/21/2025 Travel 06/20/2025 Travel 06/19/2025 11:42 AM EST - 06/19/2025 11:59 PM EST Hospital Encounter [facility] [address] [place] [address] Syncope, unspecified syncope type Discharge Disposition: Home or Self Care 06/19/2025 8:00 AM EST Office Visit [facility] [place] [address], [address] [place] [address] Courtney Torres MD POTS (postural orthostatic tachycardia syndrome) (Primary Dx) 06/19/2025 Travel 06/15/2025 3:23 PM EST - 06/15/2025 11:59 PM EST Hospital Encounter [facility] X-Ray [address] [place] [address], [address] [place] [address] Bacterial upper respiratory infection; Shortness of breath Discharge Disposition: Home or Self Care 06/15/2025 2:40 PM EST Office Visit [facility] [address] [place] [address], [address] [place] [address] Alena Esquivel, TRISTAN Bacterial upper respiratory infection (Primary Dx); Shortness of breath 06/15/2025 Results Follow-Up [facility] [address] [place] [address], [address] [place] [address] Alena Esquivel APRN 06/15/2025 Travel 06/12/2025 9:00 AM EST Office Visit [facility] Medicine Specialties [address] [place] [address] Silverio Tam PA Abdominal pain, right upper quadrant (Primary Dx); Gastroesophageal reflux disease, unspecified whether esophagitis present; Other chronic gastritis without hemorrhage; BMI 27.0-27.9,adult 06/12/2025 Travel 05/20/2025 Travel 05/19/2025 11:36 PM EDT - 05/21/2025 4:08 PM EDT Hospital Encounter [facility] [address] [place] [id number] HolguinJaren healy DO Arora, Ankit, MD Voss, Gareth J, MD Near syncope (Primary Dx); POTS (postural orthostatic tachycardia syndrome); Dizziness Discharge Disposition: Home or Self Care 05/19/2025 Orders Only External Location [address] [place] [address] Camryn Sun DO 05/19/2025 Orders Only External Location [address] [place] [address] Provider, External 04/20/2025 Results Follow-Up [facility] Medicine Specialties [address] [place] [address] Cony Mcelroy MD 04/18/2025 8:38 AM EDT Anesthesia Event [facility] End[facility] [address] [place] [address] Pantera White MD 04/18/2025 7:27 AM EDT - 04/18/2025 11:59 PM EDT Hospital Encounter [facility] [address] [place] [address] Cony Mcelroy MD Hardin, Bryan D, MD Ancel, Brian C, CRNA Guagenti, Patricia L Epigastric pain; Diarrhea, unspecified type; Gastroesophageal reflux disease, unspecified whether esophagitis present Discharge Disposition: Home or Self Care 04/18/2025 Travel 04/17/2025 Travel from Last 3 Months Immunizations Immunization [...] disorder Mother Avril fagan Depression Mother Crystal cradang Immunodeficiency Mother Crystal craft Thyroid disease Mother [...] often do you attend chur ch or confucianist services? Never 02/22/2024 Do you [...] Recorded Patient Health Questionnaire-2 Score 0 07/06/2025 [facility] [place] of Occupat ional Health - Occupational Stress [...] exercise at this level? 0 min 02/22/2024 [place] Depression Scale Answer Date Recorded [place] Depression Scale Total 6 08/08/2024 The thought [...] any time in the past [address] [facility], were you homeless or living in a penitentiary (including now)? 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 Medicine Specialties [address] [place] [address] Antoine Manrique MD [address] [place], [place] [id number] 08/28/2025 10:40 AM EST Office Visit [facility] [place] [address] [place] [address] Courtney Torres MD [address] [place] [address] 09/12/2025 12:20 PM EST Office Visit [facility] Medicine Specialties [address] [place] [address] Jessica Mcdonnell PA [address] [place] [address] 11/07/2025 2:00 PM EDT Office Visit [facility] Medicine Specialties [address] [place] [address] Maddie Mtz PA [address] [place] [address] Health Maintenance Due Date Last [...] - Td or Tdap) 02/21/2020 02/20/2010, 04/26/2002 [id number] Vaccine (2 - Jasmine risk series) 03/21/2021 02/21/2021 [facility]-Influenza Vaccine (#1) 2025 04/29/2023 [facility]- SDOH Screenings 12/13/2025 [facility]-Adult SDOH Screenings 12/13/2025 06/15/2025 [facility]-Depression Screening 07/06/2026 025, 07/06/2025, 08/08/2024 [facility]-Zoster Vaccines (1 of 2) 2048 07/06/2001 [facility]-Hepatitis A Vaccines Completed 11/21/2010, 01/25 [facility]-HIV Screening Completed 05/20/2025, , 02/07/2024 [facility]-Hepatitis C Screening Completed 05/20/2025, [facility]-Obesity Intervention Completed 025, 06/28/2025, 06/19/2025, Additional history exists [facility]-HIB Vaccines Aged Out [...] Procedure Name Priority Date/Time Associated Diagnosis Comments ERI SINGLE PATTERN (REFLEX ONLY) (SO) Routine 07/06/2025 11:56 AM EST Myalgia STACLOT LA20 Routine 07/06/2025 11:56 AM EST Livedo reticularis TSH Routine 07/06/2025 11:56 AM EST Thyrotoxicosis with Angela thyroiditis FREE T4, PLASMA Routine 07/06/2025 11:56 AM EST Thyrotoxicosis with Angela thyroiditis SCLERODERMA (SCL-70) (BRODY) ANTIBODY, IGG (SO) Routine 07/06/2025 11:56 AM EST Raynaud's disease without gangrene RNA POLYMERASE III ANTIBODY, IGG (SO) Routine 07/06/2025 11:56 AM EST Raynaud's disease without gangrene CENTROMERE ANTIBODY, IGG (SO) Routine 07/06/2025 11:56 AM EST Raynaud's disease without gangrene CBC WITH AUTO DIFFERENTIAL Routine 07/06/2025 11:56 AM EST Raynaud's disease without gangrene COMPREHENSIVE METABOLIC PANEL, PLASMA Routine 07/06/2025 11:56 AM EST Raynaud's disease without gangrene C-REACTIVE PROTEIN, PLASMA Routine 07/06/2025 11:56 AM EST Raynaud's disease without gangrene SEDIMENTATION RATE, AUTOMATED Routine 07/06/2025 11:56 AM EST Raynaud's disease without gangrene ANTINUCLEAR ANTIBODY (ERI) WITH HEP-2 SUBSTRATE, IGG BY IFA (SO) Routine 07/06/2025 11:56 AM EST Raynaud's disease without gangrene DOUBLE-STRANDED DNA (DSDNA) ANTIBODY, IGG BY IFA (SO) Routine 07/06/2025 11:56 AM EST Raynaud's disease without gangrene C3 COMPLEMENT Routine 07/06/2025 11:56 AM EST Raynaud's disease without gangrene C4 COMPLEMENT Routine 07/06/2025 11:56 AM EST Raynaud's disease without gangrene EXTRACTABLE NUCLEAR ANTIGEN ANTIBODIES (SSA 52, SSA 60, AND SSB) (SO) Routine 07/06/2025 11:56 AM EST Raynaud's disease without gangrene FAIR (BRODY) ANTIBODY, IGG (SO) Routine 07/06/2025 11:56 AM EST Raynaud's disease without gangrene FAIR/POWER PRESS OPERATOR (BRODY) ANTIBODY, IGG (SO) Routine 07/06/2025 11:56 AM EST Raynaud's disease without gangrene THYROID PEROXIDASE ANTIBODY Routine 07/06/2025 11:56 AM EST Raynaud's disease without gangrene ANCA VASCULITIS PROFILE (SO) Routine 07/06/2025 11:56 AM EST Livedo reticularis BETA-2 GLYCOPROTEIN 1 ANTIBODY, IGA (SO) Routine 07/06/2025 11:56 AM EST Livedo reticularis ANTI-BETA 2 GLYCOPROTEIN, IGG AND IGM Routine 07/06/2025 11:56 AM EST Livedo reticularis CARDIOLIPIN ANTIBODY, IGA (SO) Routine 07/06/2025 11:56 AM EST Livedo reticularis ANTICARDIOLIPIN Routine 07/06/2025 11:56 AM EST Livedo reticularis LUPUS ANTICOAGULANT PROFILE Routine 07/06/2025 11:56 AM EST Livedo reticularis RHEUMATOID FACTOR, PLASMA Routine 07/06/2025 11:56 AM EST Myalgia CYCLIC CITRUL PEPTIDE ANTIBODY IGG Routine 07/06/2025 11:56 AM EST Myalgia CREATINE KINASE, TOTAL, PLASMA Routine 07/06/2025 11:56 AM EST Myalgia ALDOLASE Routine 07/06/2025 11:56 AM EST Myalgia URINALYSIS MICROSCOPIC FOR UA REFLEX Routine 07/06/2025 11:50 AM EST Raynaud's disease without gangrene PROTEIN, URINE, RANDOM WITH CREATININE Routine 07/06/2025 11:50 AM EST Raynaud's disease without gangrene URINALYSIS WITH REFLEX MICROSCOPIC Routine 07/06/2025 11:50 AM EST Raynaud's disease without gangrene HC UNMITRDNOVIDEO 07-21 TECH AMB Routine 06/21/2025 10:22 AM EST Syncope, unspecified syncope type XR CHEST 2 VIEWS STAT 06/15/2025 3:30 PM EST Bacterial upper respiratory infection Shortness of breath CT ANGIO HEAD Routine 05/20/2025 8:[address] ANGIO NECK Routine 05/20/2025 8:08 PM EDT ECG ADULT STAT 05/20/2025 6:32 AM EDT PHOSPHORUS, PLASMA Routine 05/20/2025 5: 26 AM EDT MAGNESIUM, PLASMA Routine 05/20/2025 5:2 6 AM EDT COMPREHENSIVE METABOLIC PANEL, PLASMA Routine 05/20/2025 5:26 AM EDT CBC W/O DIFFERENTIAL Routine 05/20/2025 5:26 AM EDT MR ORBITS [...] QUANT PCR Routine 05/20/2025 2:[address] NEURO OUTSIDE IMAGES 05/19/20 4:[address] OUTSIDE IMAGES 05/19/2025 4:4 0 PM EDT COLONOSCOPY Routine 04/18/2025 9:10 AM EDT Epigastric pain Hematochezia EGD Routine 04/18/2025 9:10 AM EDT Epigastric pain Gastroesophageal reflux disease, unspecified whether esophagitis present SURGICAL PATHOLOGY EXAM Routine 04/18/20 8:49 AM EDT Epigastric pain Diarrhea, unspecified type Gastroesophageal reflux disease, unspecified whether esophagitis present POCT , URINE Routine 04/18/2025 7:53 AM EDT from Last 3 Months Results * RNA Polymerase III Antibody, IgG (07/06/2025 11:56 AM EST) RNA Polymerase III Antibody, IgG 4 0 - 19 Units 07/08/2025 6:52 PM EST [facility]) Blood Venous blood specimen / Unknown Venipuncture / Unknown 07/06/2025 11:56 AM EST 07/06/2025 11:56 AM EST Narrative [facility] ([facility]) - 07/08/2025 6:52 PM EST INTERPRETIVE INFORMATION: [...] antibodies associated with SSc, including centromere, Scl-70, U3-POWER PRESS OPERATOR, PM/Scl, or Th/To. Performed By: [facility] [address] [place] [address] Vehicle Washer: Wilber Pardo MD, PhD CLIA Number: [id number] Maddie CELESTE LAB BLOOD ORDERABLES Susannah l Result [facility]) [address] [place] [address] * ANCA Vasculitis Profile (07/06/2025 11:56 AM EST) Myeloperoxidase (MPO) Ab, IgG 0 0 - 19 AU/mL 07/10/2025 4:45 AM EST [facility] ([facility]) Serine Proteinase 3 (PR3) Ab, IgG 1 0 - 19 AU/mL 07/10/2025 4:45 AM EST [facility] ([facility]) ANCA IFA Titer <1:20 <1:20 07/10/2025 4:45 AM EST [facility] [employer] ([facility]) ANCA IFA Pattern None Detected None Detected 07/10/2025 4:45 AM [facility] [facility] ([facility]) Blood Venous blood specimen / Unknown Venipuncture / Unknown 07/06/2025 11:56 AM EST 07/06/2025 11:56 AM EST [facility] [employer] [facility]) - 07/10/2025 4:45 AM EST INTERPRETIVE INFORMATION: [...] collagen vascular disease or arthritis. Performed By: [facility] [address] [place] [address] Vehicle Washer: Wilber Pardo MD, PhD CLIA Number: [id number] Maddie CELESTE LAB BLOOD ORDERABLES Susannah l Result [facility]) [address] [place] [address] * Centromere Antibody, IgG (07/06/2025 11:56 AM EST) [facility] Centromere Ab, IgG 0 0 - 40 AU/mL 07/08/2025 3:17 PM EST [facility]) Blood Venous blood specimen / Unknown Venipuncture / Unknown 07/06/2025 11:56 AM EST 07/06/2025 11:56 AM EST Narrative [employer]) - 07/08/2025 3:17 PM EST INTERPRETIVE INFORMATION: [...] other antibodies associated with SSc, including Scl-70, U3-POWER PRESS OPERATOR, PM/Scl, or Th/To. Performed By: [facility] [address] [place] [address] Vehicle Washer: Wilber Pardo MD, PhD CLIA Number: [id number] Maddie CELESTE LAB BLOOD ORDERABLES Susannah l Result [facility] ([facility] [address] [place] [address] * Anti-Beta 2 Glycoprotein, IgG and IgM (07/06/2025 11:56 AM EST) Anti-Beta 2 Glycoprotein 1, IgG <1.4 <20.0 U/mL 07/06/2025 3:08 PM EST [facility] Anti-Beta 2 Glycoprotein IgG Interpretation Negative Negative 07/06/2025 3:08 PM EST [facility] Anti-Beta 2 Glycoprotein 1, IgM <1.5 <20.0 U/mL 07/06/2025 3:08 PM EST [facility] Anti-Beta 2 Glycoprotein IgM Interpretation Negative Negative 07/06/2025 3:08 PM EST [facility] Blood Venous blood specimen / Unknown Venipuncture / Unknown 07/06/2025 11:56 AM EST 07/06/2025 11:56 AM EST Maddie CELESTE LAB BLOOD ORDERABLES Susannah l Result [facility] [address] [facility] [place] [facility] [place] [address] * Beta-2 Glycoprotein 1 Antibody, IgA (07/06/2025 11:56 AM EST) [id number] 1, IgA Antibody <10 <=20 PREETI 07/08/2025 2:28 PM EST [facility] ([facility]) Serum 07/06/2025 11:5 6 AM EST 07/06/2025 11:56 AM EST [facility] - 07/08/2025 2:28 PM EST Performed By: [facility] [employer] [address] [place] [address] Vehicle Washer: Wilber Pardo MD, PhD CLIA Number: [id number] Maddie CELESTE LAB BLOOD ORDERABLES Susannah l Result [facility] [address] [place] [address] * Fair (BRODY) Antibody, IgG (07/06/2025 11:56 AM EST) Fair (BRDOY) Antibody, IgG 1 0 - 40 AU/mL 07/08/2025 3:19 PM EST [facility] ([facility]) Serum 07/06/2025 11:5 6 AM EST 07/06/2025 11:56 AM EST [facility]) - 07/08/2025 3:19 PM EST INTERPRETIVE INFORMATION: [...] associations with SLE clinical manifestations. Performed By: [facility] [address] [place] [address] Vehicle Washer: Wilber Pardo MD, PhD CLIA Number: [id number] Maddie CELESTE LAB REF LAB BLOOD AND FLU ID ORD Final Result [facility] ([facility]) [address] [place] [address] * (ABNORMAL) ERI Single Pattern (Reflex only) (07/06/2025 11:56 AM EST) ERI Pattern Homogeneou s(A) 07/08/2025 11:31 PM EST [facility] ([facility]) ERI Titer 1:160(A) 07/08/2025 11:31 PM EST [facility] ([facility]) Blood Venous blood specimen / Unknown Venipuncture / Unknown 07/06/2025 11:56 AM EST 07/06/2025 11:56 AM EST Narrative [facility] ([facility]) - 07/08/2025 11:31 PM EST Performed By: [facility] [address] [place] [address] Vehicle Washer: Wilber Pardo MD, PhD CLIA Number: [id number] Maddie CELESTE LAB BLOOD ORDERABLES Susannah l Result Performing Organization Address City/[facility]/ZIP Co de Phone Number [facility] ([facility]) [address] [place] [address] * Creatine Kinase (CK), Total (07/06/2025 11:56 AM EST) Pathologist [facility] Creatine Kinase, Plasma 77 37 - 168 U/L 07/06/2025 1:54 PM EST [facility] Blood Venous blood specimen / Unknown Venipuncture / Unknown 07/06/2025 11:56 AM EST 07/06/2025 11:56 AM EST Maddie CELESTE LAB BLOOD ORDERABLES Susannah l Result [facility] [address] [place] [address] * ENAII (07/06/2025 11:56 AM EST) SSA-52 (RO52) (BRODY) Antibody, IgG 1 0 - 40 AU/mL 07/08/2025 3:19 PM EST [facility] ([facility]) SSA-60 (RO60) (BRODY) Antibody, IgG 0 0 - 40 AU/mL 07/08/2025 3:19 PM EST [facility] ([facility]) SSB (LA) (BRODY) Antibody, IgG 0 0 - 40 AU/mL 07/08/2025 3:19 PM EST [facility] ([facility]) Blood Venous blood specimen / Unknown Venipuncture / Unknown 07/06/2025 11:56 AM EST 07/06/2025 11:56 AM EST [facility] ([facility]) - 07/08/2025 3:19 PM EST INTERPRETIVE INFORMATION: [...] (PSS) also have this antibody. Performed By: [facility] [address] [place] [address] Vehicle Washer: Wilber Pardo MD, PhD CLIA Number: [id number] Maddie CELESTE LAB BLOOD ORDERABLES Susannah l Result Performing Organization Address [facility] de Phone Number [facility]) [address] [place] [address] * ENAI (07/06/2025 11:56 AM EST) Fair/POWER PRESS OPERATOR (BRODY) Ab, IgG 3 0 - 19 Units 07/08/2025 10:03 AM EST [facility] ([facility]) Blood Venous blood specimen / Unknown Venipuncture / Unknown 07/06/2025 11:56 AM EST 07/06/2025 11:56 AM EST Narrative [facility] ([facility]) - 07/08/2025 10:03 AM EST INTERPRETIVE INFORMATION: Fair/POWER PRESS OPERATOR (BRODY) Antibody, IgG 19 Units or Less ............. Negative 20 to 39 Units ............... Weak Positive 40 to 80 Units ............... Moderate Positive 81 Units or greater .......... Strong Positive Fair/POWER PRESS OPERATOR antibodies are frequently seen in patients with mixed connective tissue disease (MCTD) and are also associated with other systemic autoimmune rheumatic diseases (SARDs) such as systemic lupus erythematosus (SLE), systemic sclerosis, and myositis. Antibodies targeting the Fair/POWER PRESS OPERATOR antigenic complex also recognize Fair antigens, therefore, the Fair antibody response must be considered when interpreting these results. Performed By: [facility] [address] [place] [address] Vehicle Washer: Wilber Pardo MD, PhD CLIA Number: [id number] Maddie CELESTE LAB BLOOD ORDERABLES Susannah l Result Performing Organization Address [facility] Co de Phone Number [facility]) [address] [place] [address] [place] [address] * Anticardiolipin IgG and IgM (07/06/2025 11:56 AM EST) IgG Anticardiolipin <1.60 <20.00 GPL Units/mL 07/06/2025 3:08 PM EST [facility] Anticardiolipin IgG Interpretation Negative Negative 07/06/2025 3:08 PM EST [facility] IgM Anticardiolipin <1.50 <20.00 MPL Units/mL 07/06/2025 3:08 PM EST [facility] Anticardiolipin IgM Interpretation Negative Negative 07/06/2025 3:08 PM EST [facility] Blood Venous blood specimen / Unknown Venipuncture / Unknown 07/06/2025 11:56 AM EST 07/06/2025 11:56 AM EST Maddie CELESTE LAB BLOOD ORDERABLES Susannah l Result Performing Organization Address City/[facility] Co de Phone Number [facility] [address] [place] [address] * Staclot LA20 (07/06/2025 11:56 AM EST) Blood Venous blood specimen / Unknown Venipuncture / Unknown 07/06/2025 11:56 AM EST 07/06/2025 11:56 AM EST Maddie CELESTE LAB BLOOD ORDERABLES Susannah l Result Performing Organization Address City/[facility]/ZIP Co de Phone Number [facility] [address] [place] [address] * (ABNORMAL) Thyroid Peroxidase Antibody (07/06/2025 11:56 AM EST) Thyroid Peroxidase Antibody 418(H) <=8 IU/mL 07/06/2025 3:11 PM EST [facility] Blood Venous blood specimen / Unknown Venipuncture / Unknown 07/06/2025 11:56 AM EST 07/06/2025 11:56 AM EST Maddie CELESTE LAB BLOOD ORDERABLES Susannah l Result [facility] [address] [place] [address] * Cyclic Citrul Peptide Antibody IgG (07/06/2025 11:56 AM EST) Cyclic Citrul Peptide Antibody IgG <5.0 <=5.0 U/mL 07/06/2025 3:[address] [facility] Blood Venous blood specimen / Unknown Venipuncture / Unknown 07/06/2025 11:56 AM EST 07/06/2025 11:56 AM EST Maddie CELESTE LAB BLOOD ORDERABLES Susannah l Result Performing Organization Address City/[facility]/ZIP Co de Phone Number [facility] [address] [place] [address] * Anti-scleroderma antibody (07/06/2025 11:56 AM EST) SCLERODERMA (SCL-70) (BRODY) ANTIBODY, IGG 2 0 - 40 AU/mL 07/08/2025 3:19 PM EST [facility] ([facility]) Blood Venous blood specimen / Unknown Venipuncture / Unknown 07/06/2025 11:56 AM EST 07/06/2025 11:56 AM EST Narrative [facility] ([facility]) - 07/08/2025 3:19 PM EST INTERPRETIVE [...] testing for centromere, RNA polymerase III and U3-POWER PRESS OPERATOR, PM/Scl, or Th/To antibodies. Performed By: [employer] [address] [place] [address] Vehicle Washer: Wilber Pardo MD, PhD CLIA Number: [id number] Maddie CELESTE LAB BLOOD ORDERABLES Susannah oliva Result [facility] [employer] [address] [place] [address] * Double-Stranded DNA (dsDNA) Antibody, IgG by IFA (07/06/2025 11:56 AM EST) [facility] Double-Strande d DNA (dsDNA) Ab IgG IFA <1:10 <1:10 07/09/2025 9:18 PM EST [facility] ([employer]) Blood Venous blood specimen / Unknown Venipuncture / Unknown 07/06/2025 11:56 AM EST 07/06/2025 11:56 AM EST Narrative [facility] ([facility] - 07/09/2025 9:18 PM EST INTERPRETIVE INFORMATION: [...] recommendations for testing may be found at [email or web address]. Performed By: [employer] [address] [place] [address] Vehicle Washer: Wilber Pardo MD, PhD CLIA Number: [id number] Maddie CELESTE LAB BLOOD ORDERABLES Susannah l Result Performing Organization Address [facility] Co de Phone Number [facility]) [address] [place] [address] * Aldolase (07/06/2025 11:56 AM EST) ALDOLASE 3.2 1.2 - 7.6 U/L 07/08/2025 11:08 AM EST [facility] [employer] ([employer]) Blood Venous blood specimen / Unknown Venipuncture / Unknown 07/06/2025 11:56 AM EST 07/06/2025 11:56 AM EST Narrative [facility] [employer]) - 07/08/2025 11:08 AM EST REFERENCE INTERVAL: Aldolase Access complete set of age- and/or gender-specific reference intervals for this test in the [facility] Test Directory ([employer]). Performed By: [employer] [address] [place] [address] Vehicle Washer: Wilber Pardo MD, PhD CLIA Number: [id number] Maddie CELESTE LAB BLOOD ORDERABLES Susannah l Result Performing Organization Address City/[facility] Co de Phone Number [facility] [employer]) [address] [place] [address] * Cardiolipin antibody, IgA (07/06/2025 11:56 AM EST) Cardiolipin Antibody IgA <10 <=11 APL 07/08/2025 11:49 AM EST [facility] [employer] ([employer]) Blood Venous blood specimen / Unknown Venipuncture / Unknown 07/06/2025 11:56 AM EST 07/06/2025 11:56 AM EST Narrative [facility] ([place]) - 07/08/2025 11:49 AM EST INTERPRETIVE INFORMATION: Cardiolipin Antibodies, IgA <=11 APL: Negative 12-19 APL: Indeterminate 20-80 APL: Low to Moderately Positive 81 APL or above: High Positive Performed By: [employer] [address] [place] [address] Vehicle Washer: Wilber Pardo MD, PhD CLIA Number: [id number] Maddie CELESTE LAB BLOOD ORDERABLES Susannah l Result [facility] ([place]) [address] [place] [address] * (ABNORMAL) Lupus Anticoagulant Profile (07/06/2025 11:56 AM EST) Lupus Anticoagulant Result Lupus anticoagulant (LA) not detected by either LA-sensitive aPTT or dRVVT assays. If clinical suspicion for antiphospholipid syndrome is high, consider testing for antibodies against cardiolipin and [id number] n I. 07/06/2025 4:01 PM EST [facility] aPTT Lupus Anticoagulant Sensitive 41.9(H) <=41.0 sec LAB COAGULATION METHOD 07/06/2025 4:01 PM EST [facility] Staclot without Phospholipid 48.0 sec LAB COAGULATION METHOD 07/06/2025 4:01 PM EST [facility] Staclot with Phospholipid 44.9 sec LAB COAGULATION METHOD 07/06/2025 4:01 PM EST [facility] Staclot Delta 3.1 <8.0 sec LAB COAGULATION METHOD 07/06/2025 4:01 PM EST [facility] DRVVT Screen 40.1 sec LAB COAGULATION METHOD 07/06/2025 4:01 PM EST [facility] DRVVT Screen Ratio 1.01 <1.20 LAB COAGULATION METHOD 07/06/2025 4:01 PM EST [facility] Blood Venous blood specimen / Unknown Venipuncture / Unknown 07/06/2025 11:56 AM EST 07/06/2025 11:56 AM EST Maddie CELESTE LAB BLOOD ORDERABLES Susannah l Result [facility] [address] [place] [address] * Sedimentation Rate, Automated (07/06/2025 11:56 AM EST) Sedimentation Rate 15 <20 mm/hr 2024 1:34 PM EST [facility] Blood Venous blood specimen / Unknown Venipuncture / Unknown 07/06/2025 11:56 AM EST 07/06/2025 11:56 AM EST Maddie CELESTE LAB BLOOD ORDERABLES Susannah l Result [facility] [address] [place] [address] * (ABNORMAL) CBC and Differential (07/06/2025 11:56 AM EST) WBC Count 6.11 3.70 - 10.30 10*3/uL LAB HEMATOLOGY METHOD 07/06/2025 1:12 PM EST [facility] RBC Count 4.64 3.90 - 5.20 10*6/uL LAB HEMATOLOGY METHOD 07/06/2025 1:12 PM EST [facility] HGB 12.9 11.2 - 15.7 g/dL LAB HEMATOLOGY METHOD 07/06/2025 1:12 PM EST [facility] HCT 39.6 34.0 - 45.0 % LAB HEMATOLOGY METHOD 07/06/2025 1:12 PM EST [facility] Platelet Count 183 155 - 369 10*3/uL LAB HEMATOLOGY METHOD 07/06/2025 1:12 PM EST [facility] MCV 85 79 - 98 fL LAB HEMATOLOGY METHOD 07/06/2025 1:12 PM EST [facility] MCH 27.8 26.0 - 32.0 pg LAB HEMATOLOGY METHOD 07/06/2025 1:12 PM EST [facility] MCHC 32.6 30.7 - 35.5 g/dL LAB HEMATOLOGY METHOD 07/06/2025 1:12 PM EST [facility] RDW 13.9 11.5 - 14.5 % LAB HEMATOLOGY METHOD 07/06/2025 1:12 PM [facility] MPV 12.4 8.8 - 12.5 fL LAB HEMATOLOGY METHOD 07/06/2025 1:12 PM [facility] nRBC 0.0 <=0.0 per 100 WBCs LAB HEMATOLOGY METHOD 07/06/2025 1:12 PM [facility] Differential Type Automated LAB HEMATOLOGY METHOD 07/06/2025 1:12 PM [facility] Neutrophils % 66 % LAB HEMATOLOGY METHOD 07/06/2025 1:12 PM [facility] Lymphocytes % 28 % LAB HEMATOLOGY METHOD 07/06/2025 1:12 PM [facility] Monocytes % 4 % LAB HEMATOLOGY METHOD 07/06/2025 1:12 PM EST [facility] Eosinophils % 1 % LAB HEMATOLOGY METHOD 07/06/2025 1:12 PM [facility] Basophils % 1 % LAB HEMATOLOGY METHOD 07/06/2025 1:12 PM [facility] Immature Granulocytes % 0 % LAB HEMATOLOGY METHOD 07/06/2025 1:12 PM [facility] Neutrophils Absolute 4.05 1.60 - 6.10 10*3/uL LAB HEMATOLOGY METHOD 07/06/2025 1:12 PM [facility] Lymphocytes Absolute 1.68 1.20 - 3.90 10*3/uL LAB HEMATOLOGY METHOD 07/06/2025 1:12 PM [facility] Monocytes Absolute 0.27(L) 0.30 - 0.90 10*3/uL LAB HEMATOLOGY METHOD 07/06/2025 1:12 PM [facility] Eosinophils Absolute 0.04 0.00 - 0.50 10*3/uL LAB HEMATOLOGY METHOD 07/06/2025 1:12 PM [facility] Basophils Absolute 0.05 0.00 - 0.10 10*3/uL LAB HEMATOLOGY METHOD 07/06/2025 1:12 PM [facility] Immature Granulocytes Absolute 0.02 0.00 - 0.06 10*3/uL LAB HEMATOLOGY METHOD 07/06/2025 1:12 PM [facility] Blood Venous blood specimen / Unknown Venipuncture / Unknown 07/06/2025 11:56 AM EST 07/06/2025 11:56 AM EST Narrative [facility] - 07/06/2025 1:12 PM EST Therapeutic decision making should be based on absolute values, rather than percentages. us Maddie CELESTE LAB BLOOD ORDERABLES Susannah l Result [facility] [address] [place] [address] * Rheumatoid Factor, Plasma (07/06/2025 11:56 AM EST) Rheumatoid Factor, Plasma <10 <14 IU/mL 07/06/2025 1:54 PM EST [facility] Blood Venous blood specimen / Unknown Venipuncture / Unknown 07/06/2025 11:56 AM EST 07/06/2025 11:56 AM EST Maddie CELESTE LAB BLOOD ORDERABLES Susannah l Result Performing Organization Address City/[facility] Co de Phone Number [facility] [address] [place] [address] * C3 Complement (07/06/2025 11:56 AM EST) C3 Complement 157 84 - 166 mg/dL 07/06/2025 2:11 PM EST [facility] Blood Venous blood specimen / Unknown Venipuncture / Unknown 07/06/2025 11:56 AM EST 07/06/2025 11:56 AM EST Maddie CELESTE LAB BLOOD ORDERABLES Susannah l Result [facility] [address] [place] [address] * C4 Complement (07/06/2025 11:56 AM EST) C4 Complement 24 13 - 36 mg/dL 07/06/2025 2:11 PM EST [facility] Blood Venous blood specimen / Unknown Venipuncture / Unknown 07/06/2025 11:56 AM EST 07/06/2025 11:56 AM EST us Maddie CELESTE LAB BLOOD ORDERABLES Susannah l Result Performing Organization Address [facility]/ZIP Co de Phone Number [facility] [address] [place] [address] * C-Reactive Protein, Plasma (07/06/2025 11:56 AM EST) CRP, Plasma <3.0 <=8.0 mg/L 07/06/2025 1:[address] [facility] Blood Venous blood specimen / Unknown Venipuncture / Unknown 07/06/2025 11:56 AM EST 07/06/2025 11:56 AM EST Narrative [facility] - 07/06/2025 1:54 PM EST This CRP test is appropriate for assessment of infection, systemic inflammation and/or tissue injury. To assess cardiovascular disease risk order high sensitivity CRP (CRPH). Maddie CELESTE LAB BLOOD ORDERABLES Susannah l Result Performing Organization Address [facility] Co de Phone Number [facility] [address] [place] [address] * (ABNORMAL) Antinuclear Antibody (ERI), HEp-2, IgG (07/06/2025 11:56 AM EST) Pathologist [facility] ERI INTERPRETIVE COMMENT See Note 07/08/2025 11:31 PM EST [facility] ([employer]) Anti Nuc Ab Screen Detected( H) <1:80 07/08/2025 11:31 PM EST [facility] ([employer]) Blood Venous blood specimen / Unknown Venipuncture / Unknown 07/06/2025 11:56 AM EST 07/06/2025 11:56 AM EST Narrative [facility] ([employer]) - 07/08/2025 11:31 PM EST Clinical Interpretation: [...] not necessarily rule out SARD. Performed By: [employer] [address] [place] [address] Vehicle Washer: Wilber Pardo MD, PhD CLIA Number: [id number] Maddie CELESTE LAB BLOOD ORDERABLES Susannah l Result [employer] ([employer]) [address] [place], [place] [id number] * TSH (07/06/2025 11:56 AM EST) Thyroid Stimulating Hormone, Plasma 1.86 0.40 - 4.20 uIU/mL 07/06/2025 1:54 PM EST [facility] Blood Venous blood specimen / Unknown Venipuncture / Unknown 07/06/2025 11:56 AM EST 07/06/2025 11:56 AM EST Narrative [facility] - 07/06/2025 1:54 PM EST Trimester Specific Ranges TSH ( IU/mL) 1st Trimester 0.1 - 3.0 2nd Trimester 0.19 - 4.06 3rd Trimester 0.3 - 3.7 us Roland Wooten MD LAB BLOOD ORDERABLES Final Resu lt Performing Organization Address [facility] Co de Phone Number [facility] [address] [place] [address] * T4, free (07/06/2025 11:56 AM EST) Free T4, Plasma 1.3 0.8 - 1.7 ng/dL 07/06/2025 1:54 PM EST [facility] Blood Venous blood specimen / Unknown Venipuncture / Unknown 07/06/2025 11:56 AM EST 07/06/2025 11:56 AM EST Narrative [facility] - 07/06/2025 1:54 PM EST Free T4 Trimester Specific Ranges 1st Trimester 0.9 - 1.50 ng/dL 2nd Trimester 0.7 - 1.40 ng/dL 3rd Trimester 0.7 - 1.24 ng/dL us Roland Wooten MD LAB BLOOD ORDERABLES Final Resu lt Performing Organization Address [facility] Co de Phone Number [facility] [address] [place] [address] * (ABNORMAL) Comprehensive Metabolic Panel, Plasma (07/06/2025 11:56 AM EST) Only the most recent of2 resultswithin the time period is included. Glucose, Plasma 85 74 - 99 mg/dL 07/06/2025 1:54 PM EST [facility] BUN, Plasma 8 7 - 21 mg/dL 07/06/2025 1:54 PM EST [facility] Creatinine, Plasma 0.72 0.60 - 1.10 mg/dL 07/06/2025 1:54 PM EST [facility] BUN/Creatinine Ratio 11 07/06/2025 1:54 PM EST [facility] Sodium, Plasma 140 136 - 145 mmol/L 07/06/2025 1:54 PM EST [facility] Potassium, Plasma 4.1 3.6 - 4.9 mmol/L 07/06/2025 1:54 PM EST [facility] Chloride, Plasma 106 97 - 107 mmol/L 07/06/2025 1:54 PM EST [facility] CO2, Plasma 20(L) 22 - 29 mmol/L 07/06/2025 1:54 PM EST [facility] Anion Gap 14 6 - 16 mmol/L 07/06/2025 1:54 PM EST [facility] Total Calcium, Plasma 9.1 8.9 - 10.2 mg/dL 07/06/2025 1:54 PM EST [facility] Total Protein 7.6 6.3 - 7.9 g/dL 07/06/2025 1:54 PM EST [facility] Albumin, Plasma 4.4 3.5 - 5.2 g/dL 07/06/2025 1:54 PM EST [facility] AST, Plasma 17 10 - 35 U/L 07/06/2025 1:54 PM EST [facility] ALT, Plasma 16 10 - 35 U/L 07/06/2025 1:54 PM EST [facility] Alkaline Phosphatase, Plasma 57 35 - 104 U/L 07/06/2025 1:54 PM EST [facility] Total Bilirubin, Plasma 1.4(H) 0.2 - 1.1 mg/dL 07/06/2025 1:54 PM EST [facility] eGFRcr 117.7 mL/min/1.7 3m*2 07/06/2025 1:54 PM EST [facility] Comment:Reported eGFRcr in m L/min/1.73m2 is based the CKD-EPI 2020 equation that does not use a race coefficient. Blood Venous blood specimen / Unknown Venipuncture / Unknown 07/06/2025 11:56 AM EST 07/06/2025 11:56 AM EST us Maddie CELESTE LAB BLOOD ORDERABLES Susannah oliva Result [facility] [address] [place] [address] * Urinalysis Microscopic Examination (07/06/2025 11:50 AM EST) Urine Urine specimen obtained by clean catch procedure / Unknown Non-blood Collection / Unknown 07/06/2025 11:50 AM EST 07/06/2025 11:50 AM EST Madide CELESTE LAB URINE ORDERABLES Susannah l Result Performing Organization Address [facility]/ZIP Co de Phone Number [facility] [address] [place] [address] * Protein, Random, Urine with Creatinine (07/06/2025 11:50 AM EST) Protein, Urine 8 mg/dL 07/06/2025 1:27 PM EST [facility] Creatinine, Urine 125 mg/dL 07/06/2025 1:27 PM EST [facility] Protein/Creatin ine Ratio 0.1 mg/mg Creat 07/06/2025 1:27 PM EST [facility] Urine Urine specimen obtained by clean catch procedure / Unknown Non-blood Collection / Unknown 07/06/2025 11:50 AM EST 07/06/2025 11:50 AM EST Maddie CELETSE LAB URINE ORDERABLES Susannah l Result Performing Organization Address [facility] Co de Phone Number [facility] [address] [place] [address] * (ABNORMAL) Urinalysis with reflex microscopic (Culture NOT Included) (07/06/2025 11:50 AM EST) Color, Urine Yellow LAB URINALYSIS - AUTOMATED METHOD 07/06/2025 1:06 PM EST [facility] Clarity, Urine Cloudy LAB URINALYSIS - AUTOMATED METHOD 07/06/2025 1:06 PM EST [facility] Spec Cobalt, Urine 1.016 1.005 - 1.030 LAB URINALYSIS - AUTOMATED METHOD 07/06/2025 1:06 PM EST [facility] pH, Urine 6.0 5.0 - 8.0 LAB URINALYSIS - AUTOMATED METHOD 07/06/2025 1:06 PM EST [facility] Protein, Urine Negative Negative mg/dL LAB URINALYSIS - AUTOMATED METHOD 07/06/2025 1:06 PM EST [facility] Glucose, Urine Negative Negative mg/dL LAB URINALYSIS - AUTOMATED METHOD 07/06/2025 1:06 PM EST [facility] Ketones, Urine Negative Negative mg/dL LAB URINALYSIS - AUTOMATED METHOD 07/06/2025 1:06 PM [facility] Blood, Urine Trace(A) Negative LAB URINALYSIS - AUTOMATED METHOD 07/06/2025 1:06 PM [facility] Bilirubin, Urine Negative Negative LAB URINALYSIS - AUTOMATED METHOD 07/06/2025 1:06 PM EST [facility] Urobilinogen, Urine 1.0 0.2 to 1.0 mg/dL LAB URINALYSIS - AUTOMATED METHOD 07/06/2025 1:06 PM EST [facility] Leukocytes, Urine Large(A) Negative LAB URINALYSIS - AUTOMATED METHOD 07/06/2025 1:06 PM [facility] Nitrite, Urine Negative Negative LAB URINALYSIS - AUTOMATED METHOD 07/06/2025 1:06 PM [facility] RBC, Urine 1 0 to 3 /HPF LAB URINALYSIS - AUTOMATED METHOD 07/06/2025 1:06 PM EST [facility] WBC, Urine >50(A) 0 to 5 /HPF LAB URINALYSIS - AUTOMATED METHOD 07/06/2025 1:06 PM EST [facility] Squamous Epithelial Cells >20(A) 0 to 5 /HPF LAB URINALYSIS - AUTOMATED METHOD 07/06/2025 1:06 PM [facility] Hyaline Casts 0 - 2 0 to 5 /LPF LAB URINALYSIS - AUTOMATED METHOD 07/06/2025 1:06 PM EST [facility] Bacteria, Urine Present Negative LAB URINALYSIS - AUTOMATED METHOD 07/06/2025 1:06 PM [facility] Urine Urine specimen obtained by clean catch procedure / Unknown Non-blood Collection / Unknown 07/06/2025 11:50 AM EST 07/06/2025 11:50 AM EST us Maddie CELESTE LAB URINE ORDERABLES Susannah l Result [facility] [address] [place] [address] * Home-Based Ambulatory EEG (06/21/2025 10:22 AM [...] otherwise specified) in a 10/20 system with [employer] software and hardware. Additional electrodes: none FT9/FT10: [...] for characterization of spells. Anila Francisco MD Director Volunteer Services [facility] [phone] [1] Current Outpatient Medications Medication Sig Dispense Refill acetaminophen (Tylenol) 325 MG capsule Take 2 capsules (650 mg) by mouth every 6 (six) hours if needed for mild pain. 30 capsule 1 Blood Glucose Monitoring Suppl ([employer] Verio Reflect) w/Device kit busPIRone (Buspar) 5 [...] cream as needed. Lancets (OneTouch Delica Plus [id number]) misc levothyroxine (Synthroid, Levoxyl) 25 MCG tablet [...] Intravenous Once Shalonda Davies APRN Kendy Sanchez [facility] ORDERABLES Final Result * XR Chest 2 Views (06/15/2025 3:30 [...] on 06/15/2025 3:37 PM us Alena Esquivel [employer] IMG XR PROCEDURES Final Res ult * CT Angio Neck (05/20/2025 8:08 PM [...] head CT performed one day ago at [facility] FINDINGS: Neck CTA: Diagnostic Quality: Adequate Aorta [...] No significant stenosis or occlusion. No aneurysm. [place] and Major Peripheral Branches: There [...] head CT performed one day ago at [facility] FINDINGS: Neck CTA: Diagnostic Quality: Adequate Aorta [...] atherosclerosis. Nosignificant stenosis or occlusion. No aneurysm. [place] and Major Peripheral Branches: There [...] CT PROCEDURES Final Result * CT Angio Head (05/20/2025 8:08 PM EDT) Anatomical Region Laterality Modality [place] Computed Tomogr aphy Impressions 05/20/2025 [...] head CT performed one day ago at [facility] FINDINGS: Neck CTA: Diagnostic Quality: Adequate Aorta [...] No significant stenosis or occlusion. No aneurysm. [place] and Major Peripheral Branches: There [...] head CT performed one day ago at [facility] FINDINGS: Neck CTA: Diagnostic Quality: Adequate Aorta [...] atherosclerosis. Nosignificant stenosis or occlusion. No aneurysm. [place] and Major Peripheral Branches: There [...] Tila Lewis MD on 05/20/2025 8:47 PM us Lorenzo Aguillon MD IMG CT PROCEDURES Final Result * ECG Adult (05/20/2025 6:32 AM EDT) Only the most recent of2 resultswithin the time period is included. EKG DIAGNOSIS CLASS Abnormal MUSE ECG Ventricular Rate 86 BPM MUSE ECG Atrial Rate 86 BPM MUSE ECG TX Interval 142 ms MUSE ECG QRSD Interval 78 ms MUSE ECG QT Interval 366 ms MUSE ECG QTC Interval 437 ms MUSE ECG P Adams 45 degrees MUSE ECG R Adams 22 degrees MUSE ECG T Wave [place] 44 degrees MUSE ECG Diagnosis Sinus rhythm with occasional premature ventricular complexes MUSE ECG Diagnosis Nonspecific ST abnormality MUSE ECG Diagnosis Abnormal ECG MUSE ECG Diagnosis MUSE ECG Diagnosis Confirmed by Skyler Eller ([id number]) on 05/20/2025 6:00:52 PM MUSE ECG 05/20/2025 6:32 AM EDT 05/20/2025 6:00 PM EDT us Toi Tolentino MD ECG ORDERABLES Final Result MUSE ECG * CBC (05/20/2025 5:26 AM EDT) WBC Count 6.99 3.70 - 10.30 10*3/uL LAB HEMATOLOGY METHOD 05/20/2025 5:44 AM EDT [facility] RBC Count 4.76 3.90 - 5.20 10*6/uL LAB HEMATOLOGY METHOD 05/20/2025 5:44 AM EDT [facility] HGB 13.2 11.2 - 15.7 g/dL LAB HEMATOLOGY METHOD 05/20/2025 5:44 AM EDT [facility] HCT 39.8 34.0 - 45.0 % LAB HEMATOLOGY METHOD 05/20/2025 5:44 AM EDT [facility] Platelet Count 184 155 - 369 10*3/uL LAB HEMATOLOGY METHOD 05/20/2025 5:44 AM EDT [facility] MCV 84 79 - 98 fL LAB HEMATOLOGY METHOD 05/20/2025 5:44 AM EDT [facility] MCH 27.7 26.0 - 32.0 pg LAB HEMATOLOGY METHOD 05/20/2025 5:44 AM EDT [facility] MCHC 33.2 30.7 - 35.5 g/dL LAB HEMATOLOGY METHOD 05/20/2025 5:44 AM EDT [facility] RDW 14.1 11.5 - 14.5 % LAB HEMATOLOGY METHOD 05/20/2025 5:44 AM EDT [facility] MPV 11.9 8.8 - 12.5 fL LAB HEMATOLOGY METHOD 05/20/2025 5:44 AM EDT [facility] nRBC 0.0 <=0.0 per 100 WBCs LAB HEMATOLOGY METHOD 05/20/2025 5:44 AM EDT [facility] Blood Venous blood specimen / Unknown Venipuncture / Unknown 05/20/2025 5:26 AM EDT 05/20/2025 5:42 AM EDT Samia Bowers APRN LAB BLOOD ORDERABLES Final R esult Performing Organization Address City/[facility] Co de Phone Number [facility] [address] [place] [address] * Phosphorus (05/20/2025 5:26 AM EDT) Phosphorus, Plasma 3.4 2.5 - 4.5 mg/dL 05/20/2025 7:54 AM EDT [facility] Blood Venous blood specimen / Unknown Venipuncture / Unknown 05/20/2025 5:26 AM EDT 05/20/2025 5:42 AM EDT Samia Bowers [employer] LAB BLOOD ORDERABLES Final R esult [facility] [address] [place] [address] * Magnesium, Plasma (05/20/2025 5:26 AM EDT) Magnesium, Plasma 2.2 1.9 - 2.4 mg/dL 05/20/2025 7:54 AM EDT [facility] Blood Venous blood specimen / Unknown Venipuncture / Unknown 05/20/2025 5:26 AM EDT 05/20/2025 5:42 AM EDT Samia Bowers [facility] BLOOD ORDERABLES Final R esult [facility] [address] [place] [address] * MR Orbits w and wo IV [...] Diggs MD on 05/20/2025 4:00 PM Jaren Clive Holguin DO IM MRI PROCEDURES Final Res ult * MR [...] IMG MRI PROCEDURES Final Res ult * ED HIV 1/2 Antibody/Antigen Screen w/Reflex to HIV 1/2 Differentiation (05/20/2025 2:36 AM EDT) HIV 1 & 2 Antibody/Antigen Screen Non Reactive Non Reactive 05/20/2025 3:16 AM EDT [facility] Comment:Screening for HIV 1 & 2 antibodies, and P24 antigen is NONREACTIVE. No confirmatory testing is required. Blood Venous blood specimen / Unknown Venipuncture / Unknown 05/20/2025 2:36 AM EDT 05/20/2025 2:39 AM EDT Samia Bowers APRN LAB BLOOD ORDERABLES Final R esult [facility] [address] [place] [address] * Hepatitis C Antibody - ED (05/20/2025 2:36 AM EDT) Hepatitis C Antibody Negative Negative 05/20/2025 3:12 AM EDT Instant [facility] LAB Blood Venous blood specimen / Unknown Venipuncture / Unknown 05/20/2025 2:36 AM EDT 05/20/2025 2:39 AM EDT us Samia C Bowers GARLAND MAKER LAB BLOOD ORDERABLES Final R esult [facility] [address] [place] [address] * CT NEURO OUTSIDE IMAGES (05/19/2025 4:43 PM EDT) Anatomical Region Laterality Modality Computed Tomogra phy 05/19/2025 us External Provider IMG CT PROCEDURES Edited Resul t - Final * CT OUTSIDE IMAGES (05/19/2025 4:40 PM EDT) Anatomical Region Laterality Modality Computed Tomogra phy 05/19/2025 4:40 PM EDT us Camryn S Dino DO IMG CT PROCEDURES Edited Result - Final * Colonoscopy (04/18/2025 9:10 AM EDT) Anatomical [...] medications. Staff Staff Role Sea Otero CRNA ICE HOUSE SUPERVISOR Cony Mcelroy MD Proceduralist Jean Padilla Endo Production Support Analyst Dana Brian Endo Nurse Pantera White [...] of bowel preparation was evaluated using the [place] Bowel Preparation Scale with scores of: right [...] medications. Staff Staff Role Sea Otero CRNA ICE HOUSE SUPERVISOR Cony Mcelroy MD Proceduralist Jean Padilla Endo Production Support Analyst Dana Brian Endo Nurse Pantera White [...] Albania Aguero MD GI PROCEDURE ORDERABLES Susannah pj Result * Surgical Pathology Exam (04/18/2025 8:49 AM EDT) Case Report Surgical Pathology Case: [id number] Authorizing Provider: Cony Mcelroy, Collected: 04/18/2025 0849 Ordering Location: [facility] Endoscopy Received: 04/18/2025 0918 Pathologist: Chet Harris MD Specimen: Stomach, biopsy 04/19/2025 3:22 PM EDT [facility] Final Diagnosis STOMACH, BIOPSY: - 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 BIOPSY Received in formalin labeled b iopsy, stomach , are 5 pink-reyes soft tissue fragments that range from 0.3-0.6 cm in greatest dimension. Entirely submitted in cassette A1. Cold Time: <1m Haritha Mccauley 04/19/2025 3:22 PM EDT [facility] Note: A resident was involved in the service. I attest I examined the relevant preparations for the specimens and confirmed the diagnosis or interpretation. 04/19/2025 3:22 PM EDT [facility] Tissue Stomach structure / Unknown 04/18/2025 8:49 AM EDT 04/18/2025 9:18 AM EDT Cony Carter MD LAB PATHOLOGY ORDERAB LES Final Result Performing Organization Address City/[facility]/ZIP Co de Phone Number [facility] [address] [place] [address] * POCT , URINE (04/18/2025 7:53 AM EDT) POCT Test, Urine Negative Males and Non-pregnan t Females: Negative 04/18/2025 7:59 AM EDT [facility] Switchboard Operator Receptionist ID Melinda Allen 04/18/2025 7:59 AM EDT HEALTHCARE LAB Device ID [id number] 04/18/2025 7:59 AM EDT [facility] Urine Urine specimen obtained by clean catch procedure / Unknown 04/18/2025 7:53 AM EDT 04/18/2025 7:59 AM EDT Cony Carter MD LAB POINT OF CARE TEST DOCKED DEVICE UNSOLICITED RESULTS Final Result Performing Organization Address City/[facility] Co de Phone Number [facility] [address] [place] [address] from Last 3 Months Additional Health Concerns Active Problems Noted Date Diagnosed Date CPM S22 PP LABOR (OBSTETRICS) 02/24/2024 Insurance [place] Advance Directives * Full Code (Latest Code Status on File) Date Activated Date Inactivated Comments 05/20/2025 2:23 AM 05/21/2025 6:13 PM Question Answer Comments I have reviewed the capacity from the link above and, if needed, have updated to appropriate status: Yes * Full Code Date Activated Date Inactivated Comments 07/16/2024 8:04 [...] Patient has decision-making capacity? Yes Care Teams Sand Mill Operator Core Sand Relationship Specialty Start Date End Date Padmini Wyatt APRN [address] [place] [address] PCP - General 06/26/25 Angela Oleary, RN [facility] None Registered Nurse Cardiology 02/17/24
--- OUTSIDE RECORDS SUMMARY | 2025-07-14 08:47 | XMS_ITS | Encounter Summary ---
Author Organization Healthcare Address [address] [place] [address] Care Team Providers Care Auto Motor Mechanic Name Role Phone Angela Oleary RN Unavailable Unavailable Rey Wyatt MD Primary Care Provider [phone] Padmini Wyatt APRN Primary Care Provider [phone] Encounter Details Date Type Department Care Team (Late st Contact Info) Description 06/15/2025 Results Follow-Up [facility] [address], [address] [place] [address] Alena Esquivel APRN [address] [place] [address] Social History Tobacco Use Types Packs/Day Years [...] Recorded Patient Health Questionnaire-2 Score 0 06/12/2025 [facility] [...] exercise at this level? 0 min 02/22/2024 [place] Depression Scale Answer Date Recorded [place] Depression Scale Total 6 08/08/2024 The thought [...] time in the past 12 m [facility], were you homeless or living in a mcfp (including now)? No 06/15/2025 [facility] Utilities Answer Date Recorded In the [...] drink first t casi in the morning (EYE-ASSISTANT PORTFOLIO MANAGER) to steady your nerves or to [...] Matos RN documented as of this encounter Plan of Treatment Upcoming Encounters Date Type Department Care Team (Late st Contact Info) Description 08/08/2025 1:20 PM EST Office Visit [facility] [address], [address] [place] [address] Antoine Manrique MD [address] [place] [address] 08/28/2025 10:40 AM EST Office Visit [facility] [place] [address], [address] [place] [address] Courtney Torres MD [address] [place] [address] 09/12/2025 12:20 PM EST Office Visit [facility] [address], 2[address] [place] [address] Jessica Mcdonnell PA [address] [facility] [address] [place] [address] 11/07/2025 2:00 PM EDT Office Visit [facility] [address] [place] [address] Maddie Mtz PA [address] [facility] [address] [place] [address] documented as of this encounter [...] documented as of this encounter Care Teams Auto Motor Mechanic Relationship Specialty Start Date End Date Rey Wyatt MD [address] [place] [address] [address] [place] [address] PCP - General 11/16/24 06/25/25 Padmini Wyatt APRN [address] [place] [address] PCP - General 06/26/25 Angela Oleary, RN [facility] None Registered Nurse Cardiology 02/17/24 documented as of this encounter
--- OUTSIDE RECORDS SUMMARY | 2025-07-14 08:47 | XMS_ITS | Encounter Summary ---
Author Organization Healthcare Address [address] [place] [address] Care Team Providers Care Starbucks Barista Name Role Phone Angela Oleary RN Unavailable Unavailable Rey Wyatt MD Primary Care Provider [phone] Encounter Details Date Type Department Care Team (Latest Contact Info) Description 06/21/2025 Travel Social History Tobacco Use Types Packs/Day [...] Recorded Patient Health Questionnaire-2 Score 0 06/12/2025 [facility] - Occupational Stress Questionnaire Answer Date [...] exercise at this level? 0 min 02/22/2024 [place] Depression Scale Answer Date Recorded [place] Depression Scale Total 6 08/08/2024 The thought [...] any time in the past 12 m [facility], were you homeless or living in a m[facility] (including now)? No 06/15/2025 [facility] Utilities Answer Date Recorded In the [...] drink first t casi in the morning (EYE-WHARF HELPER) to steady your nerves or to [...] Description 08/08/2025 1:20 PM EST Office Visit [facility] Specialties [address] [place] [address] Antoine Manrique MD [address] [place] [address] 08/28/2025 10:40 AM EST Office Visit [facility] [place] [address], [address] [place] [address] Courtney Torres MD [address] [place] [address] 09/12/2025 12:20 PM EST Office Visit [facility] [address] [place] [address] Jessica Mcdonnell PA [address] [place] [address] 11/07/2025 2:00 PM EDT Office Visit [facility]ties [address] [place] [address] Maddie Mtz PA [address] [place] [address] documented as of this encounter [...] documented as of this encounter Care Teams Starbucks Barista Relationship Specialty Start Date End Date Rey Wyatt MD [address] [facility] [address] [place] [address] PCP - General 11/16/24 06/25/25 Angela Oleary, RN [facility] None Registered Nurse Cardiology 02/17/24 documented as of this encounter
--- OUTSIDE RECORDS SUMMARY | 2025-07-14 08:47 | XMS_ITS | Clinical Summary ---
Author Organization [employer] ([place], [place], [place], [place], [place]) Address [address] [place] [address] Care Team Providers Care Dietetics Teacher Name Role Phone Padmini Wyatt TRANSFER STATION ATTENDANT Primary Care Provider Allergies Active Allergy Reactions [...] Date Guerrero rded Speak language other than Indian at home Not on file 08/13/2023 Want [...] or Tdap) 02/21/2020 02/20/2010, 04/26/2002 COVID-19 VACCINE (2024-2 6 season) 2025 02/21/2021 Influenza Vaccine (#1) 2025 Tobacco Cessation Counseling and Screening (12+) 04/12/2026 04/12/2025 Pneumococcal Vaccine: 0-49 Years Aged Out No longer eligible b ased on patient's age to complete this topic Medical Devices Implanted Type Area Line Service Technician Device Identifier Shelf Expiration Date Model / Serial / Lot K-Wire [id number] - [id number] Implanted:Qty: 1 on 08/04/2022 by Rex Rene MD at [facility] IMPLANTS Right: Hand ANNIA:[employer] [id number] / / Wire K-Wire 1.6mm - [id number] Implanted:Qty: 1 on 08/04/2022 by Rex Rene MD at [facility] IMPLANTS Right: Hand BUCK MED GRP:BUCK MED TECH / / Insurance [place] Advance Directives For more information, please contact: [phone] * Full Code (Latest Code Status on File) Date Activated Date Inactivated Comments 08/04/2022 6:03 AM 08/04/2022 11:35 AM Care Teams Dietetics Teacher Relationship Specialty Start Date End Date Padmini Wyatt APRN [address] [place] [address] PCP - General Nurse Practitioner 04/12/25
--- OUTSIDE RECORDS SUMMARY | 2025-07-14 08:47 | XMS_ITS | Referral Summary ---
Author Organization [employer] ([place], [place], [place], [place], [place]) Address [address] [place] [address] Care Team Providers Care Manager Risk Management Name Role Phone Padmini Wyatt TRISTAN Primary Care Provider [phone] Allergies Active Allergy Reactions Criticality Noted Date [...] Date Guerrero rded Speak language other than Latvian at home Not on file 08/13/2023 Want [...] on file Medical Devices Implanted Type Area Gasoline Locomotive Crane Operator Device Identifier Shelf Expiration Date Model / Serial / Lot K-Wire [id number] - [id number] Implanted:Qty: 1 on 08/04/2022 by Rex Rene MD at [facility] IMPLANTS Right: Hand ANNIA:[employer] [id number] / / Wire K-Wire 1.6mm [id number] Implanted:Qty: 1 on 08/04/2022 by Rex Rene MD at [facility] IMPLANTS Right: Hand [employer] GRP:[employer] TECH [id number] / / Insurance MEDICAID OF [place] Advance Directives For more information, please contact: [phone] * Full Code (Latest Code Status on File) Date Activated Date Inactivated Comments 08/04/2022 6:03 AM 08/04/2022 11:35 AM Care Teams Manager Risk Management Relationship Specialty Start Date End Date Padmini Wyatt, ELECTRIFIER OPERATOR [address] [place] [address] PCP - General Nurse Practitioner 04/12/25
--- OUTSIDE RECORDS SUMMARY | 2025-07-14 08:47 | XMS_ITS | Encounter Summary ---
Author Organization Healthcare Address [address] [place] [address] Care Team Providers Care Licensed Appraiser Name Role Phone Pcp, No Primary Care Provider UnavailMolly Newman MD Primary Care Provider [phone] Angela Oleary RN Unavailable Unavailable Rey Wyatt MD Primary Care Provider [phone] Padmini Wyatt APRN Primary Care Provider [phone] Encounter Details Date Type Department Care Team ([facility] Contact Info) Description 01/22/2024 Orders Only External Location [address] [place] [address] Provider, External Social History Tobacco Use Types [...] No 024 2:42 PM EDT Parmjit Rico, RN 2. Non-Specific Active Suici keron Thoughts (Past 1 Month) No 01/23/2024 2:42 PM EDT Parmjit Rico, JANELL 6. Suicidal Behavior (Lifetime) No 2:42 PM EDT Parmjit Rico, RN documented as of this encounter Plan of Treatment Upcoming Encounters Date Type Department Care Team ([facility] st Contact Info) Description 08/08/2025 1:20 PM EST Office Visit [facility] Specialties [address], 2nd [place] [address] Antoine Manrique MD [address] [place], [place] [id number] 08/28/2025 10:40 AM EST Office Visit [facility] [place] [address], [address] [place] [address] Courtney Torres MD [address] [place] [address] 09/12/2025 12:20 PM EST Office [facility] [address], [address] [place] [address] Jessica Mcdonnell PA [address] [place] [address] 11/07/2025 2:00 PM EDT Office Visit [facility] [address], [address] [place] [address] Maddie Mtz PA [address] [place] [address] documented as of this encounter [...] documented as of this encounter Care Teams Licensed Appraiser Relationship Specialty Start Date End Date Pcp, No [address] [place] [address] PCP - General Family Medicine 01/22/24 02/08/24 Molly Louis MD [address] [place] [address] PCP - General Family Medicine 02/09/24 11/15/24 Rey Wyatt MD [address] [facility] [address] [place] [address] PCP - General 11/16/24 06/25/25 Padmini Wyatt APRN [address] [place] [address] PCP - General 06/26/25 Angela Oleary, RN [facility] None Registered Nurse Cardiology 02/17/24 documented as of this encounter
--- OUTSIDE RECORDS SUMMARY | 2025-07-14 08:47 | XMS_ITS | Encounter Summary ---
Author Organization Healthcare Address [address] [place] [address] Care Team Providers Care Stamp Machine Servicer Name Role Phone Angela Oleary RN Unavailable Unavailable Rey Wyatt MD Primary Care Provider [phone] Encounter Details Date Type Department Care Team (Latest Contact Info) Description 06/15/2025 Travel Social History Tobacco Use Types Packs/Day [...] Recorded Patient Health Questionnaire-2 Score 0 06/12/2025 [facility] - Occupational Stress Questionnaire Answer Date Recorded [...] exercise at this level? 0 min 02/22/2024 [place] Depression Scale Answer Date Recorded [place] Depression Scale Total 6 08/08/2024 The thought [...] any time in the past 12 m [facility], were you homeless or living in a mcfp (including now)? No 06/15/2025 [facility] Utilities Answer Date Recorded In [...] drink first t casi in the morning (EYE-GEOGRAPHY HEAD) to steady your nerves or to get [...] Description 08/08/2025 1:20 PM EST Office Visit [facility] [address], [address]nd [place] [address] Antoine Manrique MD [address] [place] [address] 08/28/2025 10:40 AM EST Office Visit [facility] [place] [address] [facility] [place] [address] Courtney Torres MD [address] [place] [address] 09/12/2025 12:20 PM EST Office Visit [facility] [address], [address] [place] [address] Jessica Mcdonnell PA [address] [facility] [address] [place] [address] 11/07/2025 2:00 PM EDT Office Visit [facility] [address] [place] [address] Maddie Mtz PA [address] [facility] [address] [place] [address] documented as of this encounter Goals Goal [...] documented as of this encounter Care Teams Stamp Machine Servicer Relationship Specialty Start Date End Date Rey Wyatt MD [address] [place] [address] PCP - General 11/16/24 06/25/25 Angela Oleary, RN [facility] None Registered Nurse Cardiology 02/17/24 documented as of this encounter
--- OUTSIDE RECORDS SUMMARY | 2025-07-14 08:47 | XMS_ITS | Encounter Summary ---
Author Organization Healthcare Address [address] [place] [address] Care Team Providers Care Assistant Spa Manager Name Role Phone Angela Oleary RN Unavailable Unavailable Padmini Wyatt APRN Primary Care Provider [phone] Encounter Details Date Type Department Care Team (Latest Contact Info) Description 06/28/2025 Travel Social History Tobacco Use Types Packs/Day [...] Recorded Patient Health Questionnaire-2 Score 0 06/12/2025 [facility] - Occupational Stress Questionnaire Answer Date Recorded [...] exercise at this level? 0 min 02/22/2024 [place] Depression Scale Answer Date Recorded [place] Depression Scale Total 6 08/08/2024 The thought [...] any time in the past 12 m [facility], were you homeless or living in a long-term (including now)? No 06/15/2025 [facility] Utilities Answer Date Recorded In the [...] drink first t casi in the morning (EYE-BOREMATIC OPERATOR) to steady your nerves or to [...] Description 08/08/2025 1:20 PM EST [facility] [address] [place] [address] Antoine Manrique MD [address] [place] [address] 08/28/2025 10:40 AM EST Office Visit [facility] [place] [address], [address] [place] [address] Courtney Torres MD [address] [place] [address] 09/12/2025 12:20 PM EST Office Visit [facility] Specialties [address], [address] [place] [address] Jessica Mcdonnell PA [address] [place] [address] 11/07/2025 2:00 PM EDT Office Visit [facility] Special[facility] [address] [place] [address] Maddie Mtz PA [address] [place] [address] documented as of this encounter [...] as of this encounter Care Teams Assistant Spa Manager Relationship Specialty Start Date End Date Padmini Wyatt APRN [address] [place] [address] PCP - General 06/26/25 Angela Oleary, RN [facility] None Registered Nurse Cardiology 02/17/24 documented as of this encounter
--- OUTSIDE RECORDS SUMMARY | 2025-07-14 08:47 | XMS_ITS | Encounter Summary ---
Author Organization Healthcare Address [address] [place] [address] Care Team Providers Care Endodontic Assistant Name Role Phone Angela Oleary RN Unavailable Unavailable Padmini Wyatt APRN Primary Care Provider [phone] Encounter Details Date Type Department Care Team (Late st Contact Info) Description 07/10/2025 Results Follow-Up [facility] Special[facility] [address], [address] [place] [address] Maddie Mtz PA [address] [place] [address] Social History Tobacco Use Types [...] often do you attend chur ch or mormon services? Never 02/22/2024 Do you [...] Recorded Patient Health Questionnaire-2 Score 0 07/06/2025 [facility] - Occupational Stress Questionnaire Answer [...] exercise at this level? 0 min 02/22/2024 [place] Depression Scale Answer Date Recorded [place] Depression Scale Total 6 08/08/2024 The thought [...] time in the past 12 m [facility], were you homeless or living in a fci (including now)? No 06/15/2025 [facility] Utilities Answer Date Recorded In the past [...] drink first t casi in the morning (EYE-SNAKE CHARMER) to steady your nerves or to get [...] Description 08/08/2025 1:20 PM EST Office Visit [facility] [address], [address] [place] [address] Antoine Manrique MD [address] [place], [place] [id number] 08/28/2025 10:40 AM EST Office Visit [facility] [place] [address], [address] [place] [address] Courtney Torres MD [address] [place] [address] 09/12/2025 12:20 PM EST Office Visit [facility] [address], [address] [place] [address] Jessica Mcdonnell PA [address] [place] [address] 11/07/2025 2:00 PM EDT Office Visit [facility] [address], [address] [place] [address] Maddie Mtz PA [address] [place] [address] documented as of this encounter [...] documented as of this encounter Care Teams Endodontic Assistant Relationship Specialty Start Date End Date Padmini Wyatt APRN [address] [id number] PCP - General 06/26/25 Angela Oleary, RN [facility] None Registered Nurse Cardiology 02/17/24 documented as of this encounter
--- OUTSIDE RECORDS SUMMARY | 2025-07-14 08:47 | XMS_ITS | Encounter Summary ---
Author Organization Healthcare Address [address] [place] [address] Care Team Providers Care Dietary Services Manager Name Role Phone Molly Louis MD Primary Care Provider [phone] Angela Oleary RN Unavailable Unavailable Rey Wyatt MD Primary Care Provider [phone] Padmini Wyatt APRN Primary Care Provider [phone] Reason for Visit * Reason Onset Date Comments Med Refill 03/03/2024 Encounter Details Date Type Department Care Team ([facility] Contact Info) Description 03/03/2024 Refill Medical Office Building Obstetrics and Gynecology [address], [address] [place] [address] Earle Cochran MD [address] [place] [address] Supervision of high risk in [...] Recorded Patient Health Questionnaire-2 Score 0 02/17/2024 [facility] [place] of Occupat ional Health - Occupational Stress [...] in a long-term (including now)? No 02/09/2024 [place] Depression Scale Answer Date Recorded [place] Depression Scale Total 8 02/22/2024 The thought [...] requesting to speak with a nurse- [facility] details about symptoms she is experiencing. * Telephone Encounter - Luh Keenan RN - 03/04/2024 1:56 PM EDT Patient has refills on file. Needs to call pharmacy. Luh Keenan, RN documented in this encounter Plan of Treatment Upcoming Encounters Date Type Department Care Team (Late st Contact Info) Description 08/08/2025 1:20 PM EST Office Visit [facility] Medicine Specialties [address], [address] [place] [address] Antoine Manrique MD [address] [place], [place] [id number] 08/28/2025 10:40 AM EST Office Visit [facility] [place] [address], [address] [place] [address] Courtney Torres MD [address] [place] [address] 09/12/2025 12:20 PM EST Office Visit [facility] [address] 2nd [place] [address] Jessica Mcdonnell PA [address] [place] [address] 11/07/2025 2:00 PM EDT Office Visit [facility] [address]nd [place] [address] Maddie Mtz PA [address] [place] [address] documented as of this encounter Goals Goal [...] documented as of this encounter Care Teams Dietary Services Manager Relationship Specialty Start Date End Date Molly Louis MD [address] [place] [address] PCP - General Family Medicine 02/09/24 11/15/24 Rey Wyatt MD [address] [facility] [address] [place] [address] PCP - General 11/16/24 06/25/25 Padmini Wyatt APRN [address] [place] [address] PCP - General 06/26/25 Angela Oleary, RN [facility] None Registered Nurse Cardiology 02/17/24 documented as of this encounter
--- OUTSIDE RECORDS SUMMARY | 2025-07-14 08:47 | XMS_ITS | Encounter Summary ---
Author Organization Healthcare Address [address] [place] [address] Care Team Providers Care Access Nurse Name Role Phone Angela Oleary RN Unavailable Unavailable Padmini Wyatt APRN Primary Care Provider [phone] Encounter Details Date Type Department Care Team (Latest Contact Info) Description 07/06/2025 Travel Social History Tobacco Use Types Packs/Day [...] Recorded Patient Health Questionnaire-2 Score 0 07/06/2025 [facility] - Occupational Stress Questionnaire Answer Date [...] exercise at this level? 0 min 02/22/2024 [place] Depression Scale Answer Date Recorded [place] Depression Scale Total 6 08/08/2024 The thought [...] in the past 12 m [facility], were you homeless or living in a skilled nursing (including now)? No 06/15/2025 [facility] Utilities Answer Date Recorded In [...] drink first t casi in the morning (EYE-CHEMICAL ETCH OPERATOR) to steady your nerves or to [...] things Not at all 07/06/2025 10:33 AM Shireen Ambrosio Feeling down, depressed, or hopeless Not at all 07/06/2025 10:33 AM Shireen Ambrosio Patient Health Questionnaire -2 Score 0 07/06/2025 10:33 AM Shireen Ambrosio * Question Answer Date of Assessment Author Trouble falling or staying a sleep, or sleeping too much Not at all 07/06/2025 10:33 AM Shireen Ambrosio Feeling tired or having kentrell le energy Not at all 07/06/2025 10:33 AM Shireen Ambrosio Poor appetite or overeating Not at all [...] Not difficult at all 07/06/2025 10:33 AM Shireen Sorenson documented as of this encounter Plan of Treatment Upcoming Encounters Date Type Department Care Team (Late st Contact Info) Description 08/08/2025 1:20 PM EST Office Visit [facility] Medicine Specialties [address], [address] [place] [address] Antoine Manrique MD [address] [place] [address] 08/28/2025 10:40 AM EST Office Visit [facility] [place] [address], [address] [place] [address] Courtney Torres MD [address] [place] [address] 09/12/2025 12:20 PM EST Office Visit [facility] Medicine Specialties [address], 2[address] [place] [address] Jessica Mcdonnell PA [address] [place] [address] 11/07/2025 2:00 PM EDT Office Visit [facility] Medicine Specialties [address], [address] [place] [address] Maddie Mtz PA [address] [place] [address] documented as of this encounter [...] documented as of this encounter Care Teams Access Nurse Relationship Specialty Start Date End Date Padmini Wyatt APRN [address] [place] [address] PCP - General 06/26/25 Angela Oleary, RN [facility] None Registered Nurse Cardiology 02/17/24 documented as of this encounter
--- OUTSIDE RECORDS SUMMARY | 2025-07-14 08:47 | XMS_ITS | Encounter Summary ---
Author Organization Healthcare Address [address] [id number] Care Team Providers Care Judicial Clerk Name Role Phone Molly Louis MD Primary Care Provider [phone] Angela Oleary RN Unavailable Unavailable Rey Wyatt MD Primary Care Provider [phone] Padmini Wyatt APRN Primary Care Provider [phone] Reason for Visit * Reason Onset Date Comments Med Refill 03/03/2024 Encounter Details Date Type Department Care Team (Late st Contact Info) Description 03/03/2024 Refill [facility] [address] [place] [address] Paris Marion MD [address] [place] [address] Social History Tobacco Use Types Packs/Day Years [...] Recorded Patient Health Questionnaire-2 Score 0 02/17/2024 [facility] of Occupat ional Health [...] in a jail (including now)? No 02/09/2024 [place] Depression Scale Answer Date Recorded [place] Depression Scale Total 8 02/22/2024 The thought [...] [facility] Medicine Specialties [address], [address] [place] [address] Antoine Manrique MD [address] [place] [address] 08/28/2025 10:40 AM EST Office Visit [facility] [place] [address], [address] [place] [address] Courtney Torres MD [address] [place] [address] 09/12/2025 12:20 PM EST Office Visit [facility] Medicine Specialties [address], [address] [place] [address] Jessica Mcdonnell PA [address] [place] [address] 11/07/2025 2:00 PM EDT Office Visit [facility] Medicine Specialties [address], [address] [place] [address] Maddie Mtz PA [address] [place] [address] documented as of this [...] documented as of this encounter Care Teams Judicial Clerk Relationship Specialty Start Date End Date Molly Louis MD [address] [place] [address] PCP - General Family Medicine 02/09/24 11/15/24 [place] [address] [place] [address] [place] [address] PCP - General 11/16/24 06/25/25 Padmini Wyatt APRN [address] [place] [address] PCP - General 06/26/25 Angela Oleary, RN [facility] None Registered Nurse Cardiology 02/17/24 documented as of this encounter
--- OUTSIDE RECORDS SUMMARY | 2025-07-14 08:47 | XMS_ITS | Encounter Summary ---
Author Organization Healthcare Address [address] [place] [address] Care Team Providers Care Business Services Specialist Sales Name Role Phone Angela Oleary RN Unavailable Unavailable Rey Wyatt MD Primary Care Provider [phone] Encounter Details Date Type Department Care Team (Latest Contact Info) Description 06/20/2025 Travel Social History Tobacco Use Types Packs/Day [...] often do you attend chur ch or restoration services? Never 02/22/2024 Do you [...] Recorded Patient Health Questionnaire-2 Score 0 06/12/2025 [facility] - Occupational Stress Questionnaire Answer [...] exercise at this level? 0 min 02/22/2024 [place] Depression Scale Answer Date Recorded [place] Depression Scale Total 6 08/08/2024 The thought [...] any time in the past 12 m [facility], were you homeless or living in a care home (including now)? No 06/15/2025 [facility] Utilities Answer Date Recorded In [...] drink first t casi in the morning (EYE-LAUNDRY OR DRY CLEANERS COUNTER CLERK) to steady your nerves or to [...] Description 08/08/2025 1:20 PM EST Office Visit [facility] Medicine Specialties [address], 2nd [place] [address] Antoine Manrique MD [address] [place] [address] 08/28/2025 10:40 AM EST Office Visit [facility] [place] [address], [address] [place] [address] Courtney Torres MD [address] [place] [address] 09/12/2025 12:20 PM EST Office Visit [facility] Medicine Specialties [address], [address] [place] [address] Jessica Mcdonnell PA [address] [place] [address] 11/07/2025 2:00 PM EDT Office Visit [facility] Medicine Specialties [address], [address] [place] [address] Maddie Mtz PA [address] [place] [address] documented as of this encounter [...] of this encounter Care Teams Business Services Specialist Sales Relationship Specialty Start Date End Date Rey Wyatt MD [address] [facility] [address] [place] [address] PCP - General 11/16/24 06/25/25 Angela Oleary, RN [facility] None Registered Nurse Cardiology 02/17/24 documented as of this encounter
--- OUTSIDE RECORDS SUMMARY | 2025-07-14 08:47 | XMS_ITS | Encounter Summary ---
Author Organization Healthcare Address [address] [place] [address] Care Team Providers Care Animal Eviscerator Name Role Phone Angela Oleary RN Unavailable Unavailable Rey Wyatt MD Primary Care Provider [phone] Encounter Details Date Type Department Care Team (Latest Contact Info) Description 06/12/2025 Travel Social History Tobacco Use Types Packs/Day [...] Recorded Patient Health Questionnaire-2 Score 0 06/12/2025 [facility] of Occupat ional [...] a senior living (including now)? No 02/09/2024 [place] Depression Scale Answer Date Recorded [place] Depression Scale Total 6 08/08/2024 The thought [...] drink first t casi in the morning (EYE-SIGN LANGUAGE TRANSLATOR) to steady your nerves or to get rid of a hangover? 0 07/16/2024 [place] Questionnaire Score 0 024 Utilities Answer Date Recorded In the past 12 months has th e [employer], gas, oil, or water [employer] threatened to shut off services in your [...] things Not at all 06/12/2025 9:12 AM Missael Arreguin Feeling down, depressed, or hopeless Not at all 05/27 9:12 AM Missael Arreguin Patient Health Questionnaire-2 Score 0 05/27 9:12 AM Missael Arreguin * Question Answer Date of Assessment Author [...] Missael Regan documented as of this encounter Plan of Treatment Upcoming Encounters Date Type Department Care Team (Late st Contact Info) Description 08/08/2025 1:20 PM EST Office Visit [facility] Medicine Specialties [address], [address]nd [place] [address] Antoine Manrique MD [address] [place] [address] 08/28/2025 10:40 AM EST Office Visit [facility] [address], [address] [place] [address] Courtney Torres MD [address] [place] [address] 09/12/2025 12:20 PM EST Office [facility] Medicine Specialties [address], [address] [place] [address] Jessica Mcdonnell PA [address] [place] [address] 11/07/2025 2:00 PM EDT Office Visit [facility] Medicine Specialties [address], [address] [place] [address] Maddie Mtz PA [address] [place] [address] documented as of this encounter [...] documented as of this encounter Care Teams Animal Eviscerator Relationship Specialty Start Date End Date Rey Wyatt MD [address] [facility] [address] [place] [address] PCP - General 11/16/24 06/25/25 Angela Oleary, RN [facility] None Registered Nurse Cardiology 02/17/24 documented as of this encounter
--- OUTSIDE RECORDS SUMMARY | 2025-07-14 08:47 | XMS_ITS | Encounter Summary ---
Author Organization Healthcare Address [address] [place] [address] Care Team Providers Care Gardener Florist Name Role Phone Angela Oleary RN Unavailable Unavailable Padmini Wyatt APRN Primary Care Provider [phone] Reason for Visit * Reason Onset Date Comments HCN - Patient Message 06/26/2025 Encounter Details Date Type Department Care Team (Late st Contact Info) Description 06/26/2025 Telephone [facility] [place] [address], [address] [place] [address] Courtney Torres MD [address] [place] [address] HCN - Patient Message Social History Tobacco [...] Recorded Patient Health Questionnaire-2 Score 0 06/12/2025 [facility] - Occupational Stress Questionnaire [...] exercise at this level? 0 min 02/22/2024 [place] Depression Scale Answer Date Recorded [place] Depression Scale Total 6 08/08/2024 The thought [...] any time in the past 12 m [facility], were you homeless or living in a longterm (including now)? No 06/15/2025 [facility] Utilities Answer Date Recorded In the [...] t casi in the morning (EYE-INSIDE SALES EXECUTIVE) to steady your nerves or to [...] * Telephone Encounter - Stephania Valiente - 06/26/2025 1:33 PM EST Patient Phone Message Reason for Call: Pt is requesting a call to schedule a TH appt for the end of 08/2025. *TH template is unavailable Best contact number and optimal time of day to reach caller: [phone] Note: Please do not reply to this [...] [facility] Medicine Specialties [address], [address]nd [place] [address] Antoine Manrique MD [address] [place] [id number] 08/28/2025 10:40 AM EST Office Visit [facility] [place] [address], [address] [place] [address] Courtney Torres MD [address] [facility] [address] [place] [address] 09/12/2025 12:20 PM EST Office Visit [facility] Medicine Specialties [address], [address] [place] [address] Jessica Mcdonnell PA [address] [facility] [address] [place] [address] 11/07/2025 2:00 PM EDT Office Visit [facility] Medicine Specialties [address], [address] [place] [address] Maddie Mtz PA [address] [place] [address] documented as of this encounter [...] documented as of this encounter Care Teams Gardener Florist Relationship Specialty Start Date End Date Padmini Wyatt APRN [address] [place] [address] PCP - General 06/26/25 Angela Oleary, RN [facility] None Registered Nurse Cardiology 02/17/24 documented as of this encounter
--- OUTSIDE RECORDS SUMMARY | 2025-07-14 08:47 | XMS_ITS | Encounter Summary ---
Author Organization [facility] Address [address] [id number] Care Team Providers Care Purchasing Manager Name Role Phone Molly Louis MD Primary Care Provider [phone] Angela Oleary RN Unavailable Unavailable Rey Wyatt MD Primary Care Provider [phone] Padmini Wyatt APRN Primary Care Provider [phone] Reason for Visit * Reason Onset Date Comments Med Refill 07/19/2024 Encounter Details Date Type Department Care Team (Late st Contact Info) Description 07/19/2024 Refill [facility] [address], [address] [place] [address] Paris Marion MD [address] [id number] Social History Tobacco Use Types Packs/Day Years [...] Recorded Patient Health Questionnaire-2 Score 0 06/22/2024 [facility] of Occupat ional Health [...] money to buy more. Never true 02/09/20 Within the past 12 months, t he [...] a care home (including now)? No 02/09/2024 [place] Depression Scale Answer Date Recorded [place] Depression Scale Total 8 02/22/2024 The thought [...] drink first t casi in the morning (EYE-BURN CENTER NURSE) to steady your nerves or to get [...] 08/08/2025 1:20 PM EST Office Visit [facility] Medicine Specialties [address], [address] [place] [address] Antoine Manrique MD [address] [place], [place] [phone] 08/28/2025 10:40 AM EST Office Visit [facility] [place] [address], [address] [place] [address] Courtney Torres MD [address] [place] [address] 09/12/2025 12:20 PM EST Office Visit [facility] Medicine Specialties [address], [address] [place] [address] Jessica Mcdonnell PA [address] [place] [address] 11/07/2025 2:00 PM EDT Office Visit [facility] Specialties [address], [address] [place] [address] Maddie Mtz PA [address] [place] [address] documented as of this encounter Goals Goal [...] documented as of this encounter Care Teams Purchasing Manager Relationship Specialty Start Date End Date Molly Louis MD [address] [place] [address] PCP - General Family Medicine 02/09/24 11/15/24 Rey Wyatt MD 1700 [facility] [address] [place] [address] PCP - General 11/16/24 06/25/25 Padmini Wyatt APRN [address] [place] [address] PCP - General 06/26/25 Angela Oleary, RN [facility] None Registered Nurse Cardiology 02/17/24 documented as of this encounter
--- OUTSIDE RECORDS SUMMARY | 2025-07-14 08:47 | XMS_ITS | Encounter Summary ---
Author Organization Healthcare Address [address] [place] [address] Care Team Providers Care Horse Rider Name Role Phone Angela Oleary RN Unavailable Unavailable Rey Wyatt MD Primary Care Provider Encounter Details Date Type Department Care Team (Latest Contact Info) Description 06/19/2025 Travel Social History Tobacco Use Types Packs/Day [...] Recorded Patient Health Questionnaire-2 Score 0 06/12/2025 [facility] - Occupational Stress Questionnaire Answer Date Recorded [...] exercise at this level? 0 min 02/22/2024 [place] Depression Scale Answer Date Recorded [place] Depression Scale Total 6 08/08/2024 The thought [...] were you homeless or living in a fpc (including now)? No 06/15/2025 [facility] Utilities [...] drink first t casi in the morning (EYE-STORE ADMINISTRATIVE ASSISTANT) to steady your nerves or to [...] Description 08/08/2025 1:20 PM EST Office Visit [facility] Medicine Specialties [address], [address] [place] [address] Antoine Manrique MD [address] [place] [address] 08/28/2025 10:40 AM EST Office Visit [facility] [place] [address], [address] [place] [address] Courtney Torres MD [address] [place] [address] 09/12/2025 12:20 PM EST Office Visit [facility] Medicine Specialties [address], [address] [place] [address] Jessica Mcdonnell PA [address] [place] [address] 11/07/2025 2:00 PM EDT Office Visit [facility] Medicine Specialties [address], [address] [place] [address] Maddie Mtz PA [address] [place] [address] documented as of this encounter [...] documented as of this encounter Care Teams Horse Rider Relationship Specialty Start Date End Date Rey Wyatt MD [address] [facility] [address] [place] [address] PCP - General 11/16/24 06/25/25 Angela Oleary, RN [facility] None Registered Nurse Cardiology 02/17/24 documented as of this encounter
--- OUTSIDE RECORDS SUMMARY | 2025-07-14 08:48 | XMS_ITS ---
Author Organization [facility] Address [address] [id number] Care Team Providers Care Trench Digging Machine Operator Name Role Phone Angela Oleary RN Unavailable Unavailable Padmini Wyatt APRN Primary Care Provider [phone] Community Health Worker Status:Active (Active) Program category:Maternal/Women's Health Start date:08/01/2024 Enrollment date:08/01/2024 Overview This episode type is for outpatient Community Health Workers enrolling patients in their program. Continued Care and Services Coordination
--- OUTSIDE RECORDS SUMMARY | 2025-07-14 08:48 | XMS_ITS | Encounter Summary ---
Author Organization Healthcare Address [address] [place] [address] Care Team Providers Care Farm Machine Tender Name Role Phone Molly Louis MD Primary Care Provider [phone] Angela Oleary RN Unavailable Unavailable Rey Wyatt MD Primary Care Provider [phone] Padmini Wyatt APRN Primary Care Provider [phone] Reason for Visit * Reason Onset Date Comments Med Refill 03/23/2024 Encounter Details Date Type Department Care Team ([facility] Contact Info) Description 03/23/2024 Refill Medical Office Building Obstetrics and Gynecology [address], [address] [place] [address] Shalonda Davies, CEREAL MAKER [address] [place] [address] Social History Tobacco Use Types [...] How often do you attend chur or temple services? Never 02/22/2024 Do you [...] Recorded Patient Health Questionnaire-2 Score 0 02/17/2024 [facility] [...] in a half-way (including now)? No 02/09/2024 Zanoni Depression Scale Answer Date Recorded Zanoni Depression Scale Total 8 02/22/2024 The thought [...] drink first t casi in the morning ([employer]) to steady your nerves or to get [...] Telephone Encounter - Luh Keenan RN - 03/23/2024 8:50 AM EDT Patient already has refill on file. Luh Keenan RN documented in this encounter Plan of Treatment Upcoming Encounters Date Type Department Care Team (Late st Contact Info) Description 08/08/2025 1:20 PM EST Office Visit [facility] Medicine Specialties [address] [place] [address] Antoine Manrique MD [address] [place], [place] [id number] 08/28/2025 10:40 AM EST Office Visit [facility] [address], [address] [place] [address] Courtney Torres MD [address] [place] [address] 09/12/2025 12:20 PM EST Office Visit [facility] [address] [place] [address] Jessica Mcdonnell PA [address] [place] [address] 11/07/2025 2:00 PM EDT Office Visit [facility] [address] [place] [id number] Maddie Mtz PA [address] [place] [address] documented as of this encounter Goals Goal [...] as of this encounter Care Teams Farm Machine Tender Relationship Specialty Start Date End Date Molly Louis MD [address] [place] [address] PCP - General Family Medicine 02/09/24 11/15/24 [place] [address] [place] [address] [place] [id number] PCP - General 11/16/24 06/25/25 Padmini Wyatt APRN [address] [place] [address] PCP - General 06/26/25 Angela Oleary, RN [facility] None Registered Nurse Cardiology 02/17/24 documented as of this encounter
--- OUTSIDE RECORDS SUMMARY | 2025-07-14 08:48 | XMS_ITS | Data Portability ---
Author Organization [facility] [employer] [place] Address [address] [place] [address] Assessment Encounter Date Assessment Date Assessment LastModified by Organization Details LastModified Time 12/18/2023 12/18/2023 Patient is ___weeks . Discussed plan. [email or web address] Not available 12/17/2023 10:25:59 Plan of Treatment Reminders Order Date Submit Date Provider Last Modified By Organization Details Last Modified Time Details Appointments None recorded. Lab urinalysis , dipstick [address], [address] [place] [address], [id number], 4 17:15:18 unlisted lab - qnatal(R) advanced 2023 024 [facility], [address], [place], [address], 4 01:26:17 rapid strep group A, throat 2023 024 [email or web address] [facility], [address] [place] [address], [place], [address], 4 13:42:01 urinalysis , dipstick 2023 024 [facility], [address] [place], [address], 4 10:47:53 Referral None recorded. Procedures None recorded. Surgeries None recorded. Imaging None recorded. Medication Orders cefdinir 300 mg capsule 2023 024 [email or web address] [facility], [address] [place] [address] [address], [place], [place], [id number], 4 16:54:44 Patient TargetsNo targets recorded. Patient Instructions Encounter Date Encounter Id Patient Instructions Last Modified By Organization Details Last Modified Time 01/06/2024 [id number] Increase fluid intake, take tylenol and motrin for pain/fever as needed, advised to take medication as prescribed to eradicate bacterial infection and reduce chances of antibiotic resistance. Change toothbrush in 24 hours. May return to school 24 hours after antibiotic therapy. Follow up with PCP or OB for symptoms not improving. Go to ER with any concerning symptoms. [email or web address] Not available 01/06/2024 14:35:51 Reason for Referral None Reported. Results Created Date Observation Date Name Description Value Unit Range Abnormal Flag Note LastModifiedBy Organization Detail LastModifiedTime 12/09/19 24 12/10/2023 HEPAT IC FUNCT ION PANEL protein, total 7.7 g/dL 6.1-8. 1 normal Not Available [facility] [place] [facility] [address] [facility] [place], [address], 12/10/2023 11:16:57 12/09/19 24 12/10/2023 HEPAT IC FUNCT ION PANEL albumin 4.7 g/dL 3.6-5. 1 normal Not Available [facility] [address], [place], [address], 12/10/2023 11:16:57 12/09/19 24 12/10/2023 HEPAT IC FUNCT ION PANEL globulin 3.0 g/dL_ (calc ) 1.9-3. 7 normal Not Available [facility] [place] [facility] [address] [facility], [place], [address], 12/10/2023 11:16:57 12/09/19 24 12/10/2023 HEPAT IC FUNCT ION PANEL albumin/glob ulin ratio 1.6 (calc ) 1.0-2. 5 normal Not Available [facility] [address] [place], [address], 12/10/2023 11:16:57 12/09/19 24 12/10/2023 HEPAT IC FUNCT ION PANEL bilirubin, total 2.6 mg/dL 0.2-1. 2 high Not Available [facility] [address] [place], [address], 12/10/2023 11:16:57 12/09/19 24 12/10/2023 HEPAT IC FUNCT ION PANEL bilirubin, direct 0.4 mg/dL < or = 0.2 high Not Available [facility] [address] [place] [address], [address], 12/10/2023 11:16:57 12/09/19 24 12/10/2023 HEPAT IC FUNCT ION PANEL bilirubin, indirect 2.2 mg/dL _(farhan c) 0.2-1. 2 high Not Available [facility] [address] [place], [address], 12/10/2023 11:16:57 12/09/19 24 12/10/2023 HEPAT IC FUNCT ION PANEL alkaline phosphatase 37 U/L 31-125 normal Not Available [facility] [facility] [address] [facility] [place], [address], 12/10/2023 11:16:57 12/09/19 24 12/10/2023 HEPAT IC FUNCT ION PANEL AST 14 U/L 10-30 normal Not Available [facility] [address] [place], [address], 12/10/2023 11:16:57 12/09/19 24 12/10/2023 HEPAT IC FUNCT ION PANEL ALT 12 U/L 6-29 normal Not Available [facility] [place] [facility] [address] [facility] [place], [address], 12/10/2023 11:16:57 12/09/19 24 12/10/2023 HCG, TOTAL , [place] [address] mIU/m L high Refer ence Range Nonpr [...] appro goldie by the FDA or the [facility] actur er of the assay . Not Available [facility] [place] [facility] [address] [facility], [place], [address], 12/10/2023 11:16:58 12/09/19 24 12/09/2023 urina lysis , dipst ick Leukocytes Modera te Not Available [address], [address], 12/09/2023 08:11:20 12/09/19 24 12/09/2023 urina lysis , dipst ick Nitrite negati ve Not Available [address], [address], 12/09/2023 08:11:20 12/09/19 24 12/09/2023 urina lysis , dipst ick Urobilinogen .2 Not Available [address], [address], 12/09/2023 08:11:20 12/09/19 24 12/09/2023 urina lysis , dipst ick Protein Negati ve Not Available [address], [address], 12/09/2023 08:11:20 12/09/19 24 12/09/2023 urina lysis , dipst ick pH 5.5 Not Available [address], [address], 12/09/2023 08:11:20 12/09/19 24 12/09/2023 urina lysis , dipst ick Blood Negati ve Not Available [address], [address], 12/09/2023 08:11:20 12/09/1912/09/2023 urina lysis , dipst ick Specific [place] 1.025 Not Available [address], [address], 12/09/2023 08:11:20 12/09/19 24 12/09/2023 urina lysis , dipst ick Ketone Small Not Available [address], [address], 12/09/2023 08:11:20 12/09/19 24 12/09/2023 urina lysis , dipst ick Bilirubin Negati ve Not Available [address], [address], 12/09/2023 08:11:20 12/09/19 24 12/09/2023 urina lysis , dipst ick Glucose Negati ve Not Available [address], [address], 12/09/2023 08:11:20 12/09/19 24 12/09/2023 urina lysis , dipst ick Appearance Clear Not Available [address], [address], 12/09/2023 08:11:20 12/09/19 24 12/09/2023 urina lysis , dipst ick Color Dark Yellow Not Available [facility] [address] [facility], [place], [address], 12/09/2023 08:11:20 12/09/19 24 12/09/2023 pregn suzanne test, urine HCG positi ve Not Available [facility] [address] [facility] [address], [place], [address], 12/09/2023 08:11:34 12/18/19 24 12/22/2023 OBSTE TRIC PANEL W/FOU RTH GENER ATION HIV AND HEPAT ITIS C AB W/REF L white blood cell count 6.2 thous and/u L 3.8-10 .8 normal Not Available [facility] [place] [facility] [address] [facility] [place], [address], 12/22/2023 10:53:19 12/18/19 24 12/22/2023 OBSTE TRIC PANEL W/FOU RTH GENER ATION HIV AND HEPAT ITIS C AB W/REF L red blood cell count 4.24 iron on/uL 3.80-5 .10 normal Not Available [facility] [place] [facility] [address] [facility], [place], [address], 12/22/2023 10:53:19 12/18/19 24 12/22/2023 OBSTE TRIC PANEL W/FOU RTH GENER ATION HIV AND HEPAT ITIS C AB W/REF L hemoglobin 12.7 g/dL 11.7-1 5.5 normal Not Available [facility] [place] [facility] [address] [facility], [place], [address], 12/22/2023 10:53:19 12/18/19 24 12/22/2023 OBSTE TRIC PANEL W/FOU RTH GENER ATION HIV AND HEPAT ITIS C AB W/REF L hematocrit 38.7 % 35.0-4 5.0 normal Not Available [facility] [place] [facility] [address] [facility] [place], [address], 12/22/2023 10:53:19 12/18/19 24 12/22/2023 OBSTE TRIC PANEL W/FOU RTH GENER ATION HIV AND HEPAT ITIS C AB W/REF L MCV 91.3 fL 80.0-1 00.0 normal Not Available [facility] [place] [facility] [address] [facility], [place], [address], 12/22/2023 10:53:19 12/18/19 24 12/22/2023 OBSTE TRIC PANEL W/FOU RTH GENER ATION HIV AND HEPAT ITIS C AB W/REF L MCH 30.0 pg 27.0-3 3.0 normal Not Available [facility] [place] [facility] [address] [place], [address], 12/22/2023 10:53:19 12/18/19 24 12/22/2023 OBSTE TRIC PANEL W/FOU RTH GENER ATION HIV AND HEPAT ITIS C AB W/REF L MCHC 32.8 g/dL 32.0-3 6.0 normal Not Available [facility] [place] [facility] [address] [place], [address], 12/22/2023 10:53:19 12/18/19 24 12/22/2023 OBSTE TRIC PANEL W/FOU RTH GENER ATION HIV AND HEPAT ITIS C AB W/REF L RDW 12.0 % 11.0-1 5.0 normal Not Available [facility] [place] [facility] [address] [place], [address], 12/22/2023 10:53:19 12/18/19 24 12/22/2023 OBSTE TRIC PANEL W/FOU RTH GENER ATION HIV AND HEPAT ITIS C AB W/REF L platelet count 143 thous and/u L 140-40 0 normal Not Available [facility] [place] [facility] [address], [place], [address], 12/22/2023 10:53:19 12/18/19 24 12/22/2023 OBSTE TRIC PANEL W/FOU RTH GENER ATION HIV AND HEPAT ITIS C AB W/REF L MPV 11.8 fL 7.5-12 .5 normal Not Available [facility] [place] [facility] [address], [place], [address], 12/22/2023 10:53:19 12/18/19 24 12/22/2023 OBSTE TRIC PANEL W/FOU RTH GENER ATION HIV AND HEPAT ITIS C AB W/REF L absolute neutrophils 5233 cells /uL 1500-7 800 normal Not Available [facility] [place] [facility] [address], [place], [address], 12/22/2023 10:53:19 12/18/19 24 12/22/2023 OBSTE TRIC PANEL W/FOU RTH GENER ATION HIV AND HEPAT ITIS C AB W/REF L absolute lymphocytes 651 cells /uL 850-39 00 low Not Available [facility] [place] [facility] [address], [place], [address], 12/22/2023 10:53:19 12/18/19 24 12/22/2023 OBSTE TRIC PANEL W/FOU RTH GENER ATION HIV AND HEPAT ITIS C AB W/REF L absolute monocytes 273 cells /uL 200-95 0 normal Not Available [facility] [place] [facility] [address], [place], [address], 12/22/2023 10:53:19 12/18/19 24 12/22/2023 OBSTE TRIC PANEL W/FOU RTH GENER ATION HIV AND HEPAT ITIS C AB W/REF L absolute eosinophils 12 cells /uL 15-500 low Not Available [facility] [place] [facility] [address], [place], [address], 12/22/2023 10:53:19 12/18/19 24 12/22/2023 OBSTE TRIC PANEL W/FOU RTH GENER ATION HIV AND HEPAT ITIS C AB W/REF L absolute basophils 31 cells /uL 0-200 normal Not Available [facility] [place] [facility] [address], [place], [address], 12/22/2023 10:53:19 12/18/19 24 12/22/2023 OBSTE TRIC PANEL W/FOU RTH GENER ATION HIV AND HEPAT ITIS C AB W/REF L neutrophils 84.4 % normal Not Available [facility] [place] [facility] [address], [place], [address], 12/22/2023 10:53:19 12/18/19 24 12/22/2023 OBSTE TRIC PANEL W/FOU RTH GENER ATION HIV AND HEPAT ITIS C AB W/REF L lymphocytes 10.5 % normal Not Available [facility] [place] [facility] [address], [place], [address], 12/22/2023 10:53:19 12/18/19 24 12/22/2023 OBSTE TRIC PANEL W/FOU RTH GENER ATION HIV AND HEPAT ITIS C AB W/REF L monocytes 4.4 % normal Not Available [facility] [place] [facility] [address], [place], [address], 12/22/2023 10:53:19 12/18/19 24 12/22/2023 OBSTE TRIC PANEL W/FOU RTH GENER ATION HIV AND HEPAT ITIS C AB W/REF L eosinophils 0.2 % normal Not Available [facility] [place] [facility] [address], [place], [address], 12/22/2023 10:53:19 12/18/19 24 12/22/2023 OBSTE TRIC PANEL W/FOU RTH GENER ATION HIV AND HEPAT ITIS C AB W/REF L basophils 0.5 % normal Not Available [facility] [place] [facility] [address] [facility], [place], [address], 12/22/2023 10:53:19 12/18/19 24 12/22/2023 OBSTE TRIC [...] pregn suzanne. Not Available [facility] [place] [facility] [address] [facility], [place], [address], 12/22/2023 10:53:19 12/18/19 24 12/22/2023 OBSTE TRIC PANEL W/FOU RTH GENER ATION HIV AND HEPAT ITIS C AB W/REF L ABO group O Not Available [facility] [place] [facility] [address] [facility], [place], [address], 12/22/2023 10:53:19 12/18/19 24 12/22/2023 OBSTE TRIC PANEL W/FOU RTH GENER ATION HIV AND HEPAT ITIS C AB W/REF L Rh type RH(D) POSITI VE For addit ional infor cliff up e refer to http: //[facility] emily shah.Que stDia gnost ics.c om/fa q/FAQ 111 (This link is being provi ded for infor martell shen/ educa domi l purpo ses only. ) Not Available [facility] [place] [facility] [address] [facility], [place], [address], 12/22/2023 10:53:19 12/18/19 24 12/22/2023 OBSTE TRIC PANEL W/FOU RTH GENER ATION HIV AND HEPAT ITIS C AB W/REF L RPR (DX) w/refl titer and confirmatory testing NON-RE ACTIVE non-re active normal No labor atory evide nce of syphi lis. If recen t expos ure is suspe cted, submi t a new sampl e in 2-4 weeks . Not Available [facility] [place] [facility] [address] [facility], [place], [address], 12/22/2023 10:53:19 12/18/19 24 12/22/2023 OBSTE TRIC [...] only. ) Not Available [facility] [place] [facility] [address] [facility], [place], [address], 12/22/2023 10:53:19 12/18/19 24 12/22/2023 OBSTE TRIC [...] virus . Not Available [facility] [place] [facility] [address] [facility], [place], [address], 12/22/2023 10:53:19 12/18/19 24 12/22/2023 OBSTE TRIC [...] n pleas e refer to http: //[facility] emily shah.bill stdia gnost ics.c om/fa q/FAQ 106 (This link is being provi ded for infor matio nal/ educa domi l purpo ses only. ) The perfo rmanc e of this assay has not been clini leobardo valid ated in patie nts less than 2 years old. Not Available [facility] [place] [facility] [address] [facility], [place], [address], 12/22/2023 10:53:19 12/18/19 24 12/22/2023 OBSTE TRIC [...] a test for HCV RNA (test code 00789 ) is sugge sted. For addit ional infor matio n pleas e refer to http: //[facility]olas duong stdia gnost ics.c om/fa q/FAQ 22v1 (This link is being provi ded for infor martell shen/ yang oliva purpo ses only. ) Not Available [facility] [place] [facility] [address] [place], [address], 12/22/2023 10:53:19 01/06/20 24 01/06/2024 rapid strep group A, throa t Strep negati ve Not Available [facility] - [address], [place], [address], 01/06/2024 13:13:50 01/15/20 24 01/26/2024 QNATA L(R) ADVAN GREGORIO number of fetuses? 1 Not Available [facility] [place] [facility] [address], [place], [address], 01/26/2024 01:26:17 01/15/20 24 01/26/2024 QNATA L(R) ADVAN GREGORIO advanced maternal age? NOT GIVEN Not Available [facility] [place] [facility] [address] [place], [address], 01/26/2024 01:26:17 01/15/20 24 01/26/2024 QNATA L(R) ADVAN GREGORIO abnormal meliton? NOT GIVEN Not Available [facility] [place] [facility] [address] [place], [address], 01/26/2024 01:26:17 01/15/20 24 01/26/2024 QNATA L(R) ADVAN GREGORIO abnormal US? NOT GIVEN Not Available [facility] [place] [facility] [address] [place], [address], 01/26/2024 01:26:17 01/15/20 24 01/26/2024 QNATA L(R) ADVAN GREGORIO personal/fam history? NOT GIVEN Not Available [facility] [place] [facility] [address] [place], [address], 01/26/2024 01:26:17 01/15/20 24 01/26/2024 QNATA L(R) ADVAN GREGORIO interpretati on SEE NOTE This speci men showe d an expec sathish repre senta tion of chrom osome 21, 18, and 13 mater ial. See Elias rivera below . 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) Negati ve Not Available [facility] [place] [facility] [address] [facility], [place], [address], 01/26/2024 01:26:17 01/15/20 24 01/26/2024 QNATA L(R) ADVAN GREGORIO trisomy 13 (T13) Negati ve Not Available [facility] [place] [facility] [address] [facility], [place], [address], 01/26/2024 01:26:17 01/15/20 24 01/26/2024 QNATA L(R) ADVAN GREGORIO Y chromosome Not detect ed Not Available [facility] [place] [facility] [address] [facility], [place], [address], 01/26/2024 01:26:17 01/15/20 24 01/26/2024 QNATA L(R) ADVAN GREGORIO Y chr. interpretati on SEE NOTE Consi stent with a femal e fetus . Not Available [facility] [place] [facility] [address] [facility], [place], [address], 01/26/2024 01:26:17 01/15/20 24 01/26/2024 QNATA L(R) ADVAN GREGORIO sex chromosome No aneupl oidy Not Available [facility] [place] [facility] [address] [facility] [place], [address], 01/26/2024 01:26:17 01/15/20 24 01/26/2024 QNATA L(R) ADVAN GREGORIO sex chromosome interp SEE NOTE No appar ent abnor malit y was detec sathish. See Limi tatio ns below . Not Available [facility] [place] [facility] [address] [facility] [place], [address], 01/26/2024 01:26:17 01/15/20 24 01/26/2024 QNATA L(R) ADVAN GREGORIO microdeletio n Not detect ed Not Available [facility] [place] [facility] [address] [facility] [place], [address], 01/26/2024 01:26:17 01/15/20 24 01/26/2024 QNATA L(R) ADVAN GREGORIO microdeletio n interp SEE NOTE No appar ent abnor malit y was detec sathish. See Limi tatio ns below . Not Available [facility] [address] [facility] [place], [address], 01/26/2024 01:26:17 01/15/20 24 01/26/2024 QNATA L(R) ADVAN GREGORIO gestational age(in weeks) 10 Not Available [facility] [place] [facility] [address] [facility] [place], [address], 01/26/2024 01:26:17 01/15/20 24 01/26/2024 QNATA L(R) ADVAN GREGORIO gestational age (in days) 3 Not Available [facility] [place] [facility] [address] [facility] [place], [address], 01/26/2024 01:26:17 01/15/20 24 01/26/2024 QNATA L(R) ADVAN GREGORIO fraction 9.49% Not Available [facility] [place] [facility] [address] [place], [address], 01/26/2024 01:26:17 01/15/20 24 01/26/2024 QNATA L(R) ADVAN GREGORIO laboratory comments SEE NOTE A porti on of the testi ng was perfo rmed at [facility] . Labor atory resul ts and submi tted clini farhan infor matio n revie wed by Tomi Lozano, Ph.D. , [facility] , [facility]. Not Available [facility] [place] [facility] [address] [place], [address], 01/26/2024 01:26:17 01/15/20 24 01/26/2024 QNATA L(R) [...] origi n. Not Available [facility] [place] [facility] [address] [facility], [place], [address], 01/26/2024 01:26:17 01/15/20 24 01/26/2024 QNATA L(R) [...] sment . Not Available [facility] [place] [facility] [address] [facility], [place], [address], 01/26/2024 01:26:17 01/15/2001/26/2024 QNATA L(R) ADVAN GREGORIO [...] tion of seque nces from the [facility] ns invol goldie in 1p36 micro [...] by FDA. Not Available [facility] [place] [facility] [address] [facility], [place], [address], 01/26/2024 01:26:17 01/15/20 24 01/26/2024 CHLAM YDIA/ N.RO ORRHO EAE AND T. VAGIN ADILSON RNA, QL TMA chlamydia trachomatis RNA, tma, urogenital NOT DETECT ED not detect ed normal Not Available [facility] [place] [facility] [address] [facility], [place], [address], 01/26/2024 01:26:18 01/15/20 24 01/26/2024 CHLAM YDIA/ N.RO ORRHO EAE AND T. VAGIN ADILSON RNA, QL TMA neisseria gonorrhoeae RNA, tma, urogenital NOT DETECT ED not detect ed normal Not Available [facility] [place] [facility] [address] [facility], [place], [address], 01/26/2024 01:26:18 01/15/20 24 01/26/2024 CHLAM YDIA/ [...] refer to https ://ed ucati on.qu estdi Sophia Search tics. com/f aq/FA Q154 (This link is being provi ded for infor martell shah/ educa domi l purpo ses only. ) Not Available [facility] [place] [facility] [address] [facility], [place], [address], 01/26/2024 01:26:18 01/15/20 24 01/26/2024 CHLAM YDIA/ N.RO ORRHO EAE AND T. VAGIN ADILSON RNA, QL TMA trichomonas vaginalis RNA, ql tma NOT DETECT ED not detect ed normal For addit ional infor cliff up refer to http: //[facility] emily shah.que stdia gnost ics.c om/ faq/T katie reynolds tma (This link is being provi ded for infor martell shen/ educa domi l purpo ses only. ) Not Available [facility] [place] [facility] [address] [facility], [place], [address], 01/26/2024 01:26:18 01/15/20 24 01/26/2024 DRUG MONIT ORING , PANEL 8 WITH CONFI RMATI ON, URINE alcohol metabolites NEGATI VE NG/mL <500 normal Not Available [facility] [place] [facility] [address] [place], [address], 01/26/2024 01:26:18 01/15/20 24 01/26/2024 DRUG MONIT ORING , PANEL 8 WITH CONFI RMATI ON, URINE amphetamines NEGATI VE NG/mL <500 normal Not Available [facility] [place] [facility] [address] [facility], [place], [address], 01/26/2024 01:26:18 01/15/20 24 01/26/2024 DRUG MONIT ORING , PANEL 8 WITH CONFI RMATI ON, URINE benzodiazepi bony NEGATI VE NG/mL <100 normal Not Available [facility] [place] [facility] [address] [facility], [place], [address], 01/26/2024 01:26:18 01/15/20 24 01/26/2024 DRUG MONIT ORING , PANEL 8 WITH CONFI RMATI ON, URINE buprenorphin e NEGATI VE NG/mL <5 normal Not Available [facility] [place] [facility] [address] [place], [address], 01/26/2024 01:26:18 01/15/20 24 01/26/2024 DRUG MONIT ORING , PANEL 8 WITH CONFI RMATI ON, URINE cocaine metabolite NEGATI VE NG/mL <150 normal Not Available [facility] [place] [facility] [address] [place], [address], 01/26/2024 01:26:18 01/15/20 24 01/26/2024 DRUG MONIT ORING , PANEL 8 WITH CONFI RMATI ON, URINE 6 acetylmorphi ne NEGATI VE NG/mL <10 normal Not Available [facility] [address] [place], [address], 01/26/2024 01:26:18 01/15/20 24 01/26/2024 DRUG MONIT ORING , PANEL 8 WITH CONFI RMATI ON, URINE marijuana metabolite NEGATI VE NG/mL <20 normal Not Available [facility] [address] [place], [address], 01/26/2024 01:26:18 01/15/20 24 01/26/2024 DRUG MONIT ORING , PANEL 8 WITH CONFI RMATI ON, URINE MDMA NEGATI VE NG/mL <500 normal Not Available [facility] [address] [facility] [place], [address], 01/26/2024 01:26:18 01/15/20 24 01/26/2024 DRUG MONIT ORING , PANEL 8 WITH CONFI RMATI ON, URINE opiates NEGATI VE NG/mL <100 normal Not Available [facility] [address] [facility] [place], [address], 01/26/2024 01:26:18 01/15/20 24 01/26/2024 DRUG MONIT ORING , PANEL 8 WITH CONFI RMATI ON, URINE oxycodone NEGATI VE NG/mL <100 normal Not Available [facility] [place] [facility] [address] [place], [address], 01/26/2024 01:26:18 01/15/20 24 01/26/2024 DRUG MONIT ORING , PANEL 8 WITH CONFI RMATI ON, URINE creatinine 89.6 mg/dL > or = 20.0 normal Not Available [facility] [place] [facility] [address] [facility] [place], [address], 01/26/2024 01:26:18 01/15/20 24 01/26/2024 DRUG MONIT ORING , PANEL 8 WITH CONFI RMATI ON, URINE pH 8.4 4.5-9. 0 normal Not Available [facility] [address] [place], [id number], 01/26/2024 01:26:18 01/15/20 24 01/26/2024 DRUG MONIT ORING , PANEL 8 WITH CONFI RMATI ON, URINE oxidant NEGATI VE mcg/m L <200 normal Not Available [facility] [address] [place], [address], 01/26/2024 01:26:18 01/15/20 24 01/26/2024 DRUG MONIT [...] 10pm EST Not Available [facility] [address] [place], [address], 01/26/2024 01:26:19 01/15/20 24 01/26/2024 CULTU RE, URINE , ROUTI NE culture, urine, routine SEE NOTE CULTU RE, URINE , ROUTI NE Micro Numbe r: [id number] Test Statu s: Final Speci men Sourc e: Urine Speci men Quali ty: Adequ ate Resul t: No Growt h Not Available [facility] [address] [place], [address], 01/26/2024 01:26:19 01/15/20 24 01/15/2024 urina lysis , dipst ick Leukocytes Modera te Not Available [address], [address], 01/15/2024 16:55:16 01/15/20 24 01/15/2024 urina lysis , dipst ick Nitrite negati ve Not Available [address], [address], 01/15/2024 16:55:16 01/15/20 24 01/15/2024 urina lysis , dipst ick Urobilinogen .2 Not Available [address], [address], 01/15/2024 16:55:16 01/15/20 24 01/15/2024 urina lysis , dipst ick Protein Negati ve Not Available [address], [address], 01/15/2024 16:55:16 01/15/20 24 01/15/2024 urina lysis , dipst ick pH 6.0 Not Available [address], [address], 01/15/2024 16:55:16 01/15/20 24 01/15/2024 urina lysis , dipst ick Blood Negati ve Not Available [address], [address], 01/15/2024 16:55:16 01/15/20 24 01/15/2024 urina lysis , dipst ick Specific [place] 1.020 Not Available [address], [address], 01/15/2024 16:55:16 01/15/20 24 01/15/2024 urina lysis , dipst ick Ketone Negati ve Not Available [address], [address], 01/15/2024 16:55:16 01/15/20 24 01/15/2024 urina lysis , dipst ick Bilirubin Negati ve Not Available [address], [address], 01/15/2024 16:55:16 01/15/20 24 01/15/2024 urina lysis , dipst ick Glucose Negati ve Not Available [address], [address], 01/15/2024 16:55:16 12/11/19 24 12/11/2023 US, obste tric, trans vagin al No observ ation record ed. [email or web address] Amanda [address], [place], [address], 12/14/2023 10:33:57 12/18/1912/18/2023 US, obste tric, trans vagin al No observ ation record ed. [email or web address] [facility] [address] [facility], [address], 12/23/2023 15:48:00 12/18/19 US, obste tric No observ ation record ed. [email or web address] [facility] [address] [place], [address], 12/18/2023 11:51:05 Result Notes None recorded. Problems Name Problem SNOMED Code Status Onset Date Resolution Date Notes Provider Name and Address Organization Details Recorded Time Tinea corporis 45543267 Active 2022 Rhonda Watkins APRN [address] [place] [address], [address], [employer] 3 15:13:40 Pityrias is versicol or 98366152 Active 2022 Rhonda Watkins APRN [address] [place] [address], [address], [employer] 3 15:59:21 Depressi ve disorder 55695363 Active 2022 Rhonda Watkins APRN [address] [place] [address], [address], [employer] 3 15:59:36 Overacti ve urinary bladder 724831829 Active 2022 Rhonda Watkins APRN [address] [place] [address], [address], [employer] 3 15:59:50 Mixed urinary incontin ence 769572866 Active 2022 Rhonda Watkins APRN [address] [place] [address], [address], [employer] 3 16:01:47 Acute pharyngi tis 617117256 Active 2022 Rhondacorey Watkins APRN [address] [place] [address], [address], [employer] 3 17:50:47 Missed period 73520917 Active 2022 Rhonda Watkins APRN [address] [place] [address], [address], [employer] 3 13:04:58 Nausea and vomiting 91894951 Active 2022 Rhonda Watkins APRN [address] [place] [address], [address], [employer] 3 13:41:40 Constipa tion 07577762 Active 2022 Rhonda Watkins APRN [address] [place] [address], [address], [employer] 3 13:41:44 Pelvic and perineal pain 937344281 Active 2022 Rhonda Watkins APRN [address] [place] [address], [address], [employer] 3 17:12:13 Genital herpes simplex 53433341 Active 2022 Rhonda Watkins APRN [address] [place] [address], [address], [employer] 3 17:12:40 Abdomina l pain 50584388 Active 2022 Rhonda Watkins APRN [address] [place] [address], [address], [employer] 3 09:38:02 Streptoc occal sore throat 28559751 Active 2022 NEHEMIAH GRAVES-[address], [address], [employer] 3 08:58:06 Vaginal irritati on 066400034 Active 2023 Rhonda Watkins APRN [address] [place] [address], [address], [employer] 4 12:47:40 Pregnanc y 28938915 Completed 202308/30/2024 ESTELLE goodman, [employer] 5 14:48:36 Tachycar brannon 3847702 Active 2023 On metoprolo l 12.5mg QD Francy Corey, DO [address] [place] [address], [address], [employer] 4 14:10:47 Tachycar brannon 6741519 Completed 2023 On metoprolo l 12.5mg QD Francydaniel Nicole DO [address] [place] [address], [address], [employer] 4 14:10:47 Sore throat 864874928 Active 2023 NEHEMIAH Sims [address] [place] [address], [address], [employer] 4 14:33:22 Gestatio n period, 9 weeks 171451 Active 2023 NEHEMIAH Sims [address] [place] [address], [address], [employer] 4 14:33:29 Problem Notes None recorded. Procedures Surgical History Date Name Laterality Status Provider Name and Address Organization Details Recorded Time 12/11/19 Date of Last Pap Smear completed Francy Evans [employer] 10/20/2023 13:29:10 Tonsillectomy completed TELLO SHERMAN [employer] 12/10/2022 14:43:50 hand repair completed BORIS JANE [employer] 07/23/2023 08:28:12 Dilation and Curettage completed TELLO EMMETT [employer] 12/09/2023 10:10:06 Imaging Results None recorded. Procedure Notes None recorded. Medical Equipment None Reported. Allergies Allergen ID Allergen Name Allergen Category Reaction Reaction Severity Criticality Documentation Date Start Date Code Code System Note Provider Name and Address Organization Details Recorded Time 21227 Product containin g penicilli n (product) medicatio n Not available Not available Not available 12/10/2022 29686 8001 SNOMED [employer]. 3 14:48:49 96420 Augmentin medicatio n Not available Not available Not available 12/10/2022 99575 2 RxNorm [employer]. 3 14:48:54 Medications Name Sig Start Date [...] Updated DateTime 12/11/2023 167.64 cm TELLO SHERMAN [employer] 12/11/2023 16:30:09 Date Recorded Body weight Provider Name an d Address Organization Details Last Updated DateTime 12/16/2023 14945.971425 g Francy Nicole, DO [address] [place], [address], [employer] 12/22/2023 12:17:21 Date Recorded Body height Body mass index (BMI) Systolic And Diastolic Provider Name and Address Organization Details Last Updated DateTime 12/16/2023 167.64 cm 22.2 kg/m2 110/70 mm[Hg] Mychal Parnell [employer] 12/16/2023 09:55:12 Date Recorded Body weight Provider Name an d Address Organization Details Last Updated DateTime 12/18/2023 25202.87718 g Geno BREWSTER [address] [place] [address], [address], [employer]. 12/18/2023 11:47:26 Date Recorded Body height Body mass index (BMI) Provider Name and Address Organization Details Last Updated DateTime 12/18/2023 167.64 cm 22.1 kg/m2 TELLO CONKLINCO [employer]. 12/18/2023 11:43:41 Date Recorded Body height Body mass index (BMI) Body weight Oxygen saturation Heart rate Body temperature Systolic And Diastolic Provider Name and Address Organization Details Last Updated DateTime 167.64 cm 22.3 kg/m2 34565.7 5 g 98 % 81 /min 98.3 [degF] 113/73 mm[Hg] Shani Mague [employer] 13:12:47 Date Recorded Body height Provider Name an d Address Organization Details Last Updated DateTime 01/15/2024 167.64 cm Mychal Parnell [employer] 01/15/2024 16:54:15 Date Recorded Body weight Systolic And Diastolic Provider Name and Address Organization Details Last Updated DateTime 01/15/2024 89104.33531 g 112/62 mm[Hg] Ean Cruz [employer] 01/15/2024 16:59:36 Social History Question Answer Notes LastModified by Organizat ion Details LastModified Time Tobacco Smoking Status Former Smoker BORIS goodman, [employer]. 07/23/2023 08:27:54 What Is Your Level Of [...] Or The Highest Degree You Have Received? [id number] Information not available 12/10/2022 Who Is Your Employer? [employer] Information not available 12/10/2022 Have There Been Any Changes To Your Family Or Social Situation? No Information not available 12/10/2022 When Did You Quit Smoking? 1-5yearssincela alessandra Information not available 07/23/2023 Which Of Your Hands Is Dominant? Right Information not available 12/10/2022 What Was The Date Of Your Most Recent Tobacco Screening? 01/15/2024 Information not available 01/15/2024 What Is Your Current Pack Years? 10packyears [email or web address] Information not available 07/23/2023 Have You Ever [...] Has Tobacco Cessation Counseling Been Provided? Yes [email or web address] Information not available 10/20/2023 On What Date [...] not available 12/10/2022 What is your occupation? [employer] Information not available 12/10/2022 Do [...] IPV 2 completed TELLO CHRISTINE SHERMAN null, [employer] 12/10/2022 14:42:16 MMR 2 completed TELLOGUSTAVO CHRISTINE SHERMAN null, [employer] 12/10/2022 14:42:16 COVID-19 vaccine, vector-nr, rS-Ad26, PF, 0.5 mL 1 completed TELLO CHRISTINE SHERMAN null, [employer] 12/10/2022 14:42:16 Tdap 0 completed TELLO CHRISTINE SHERMAN null, [employer] 12/10/2022 14:42:16 varicella 1 completed TELLO CHRISTINE SHERMAN null, [employer] 12/10/2022 14:42:16 HPV, quadrivalent 1 completed TELLO CHRISTINE SHERMAN null, [employer] 12/10/2022 14:42:16 Hep A, ped/adol, 2 dose 1 completed TELLO CHRISTINE SHERMAN null, [employer] 12/10/2022 14:42:16 Hep A, ped/adol, 2 dose 0 completed TELLO CHRISTINE SHERMAN null, [employer] 12/10/2022 14:42:16 DTaP, unspecified formulation 2 completed TELLO CHRISTINE SHERMAN null, [employer] 12/10/2022 14:42:16 Influenza, split virus, quadrivalent, PF 3 completed Francy goodman [facility], [place] 09/22/2023 12:41:20 Past Encounters Encounter ID Performer Location Encounter Start Date Encounter Closed Date Diagnosis/Indication Diagnosis SNOMED-CT Code Diagnosis ICD10 Code Diagnosis IMO Codes Diagnosis Note [id number] Rhonda Watkins [facility] [place] [address] 12/10/2022 14:38:30 12/10/2022 16:46:26 Pityriasis versicolor 96380772 B36.0 Depressive disorder 3548 9007 F32.A Overactive urinary bladder 307872117 N32.81 Mixed urin glenn incontinence 625521618 N39.46 Screening for malignant neoplasm of cervix 972022224 Z12.4 [id number] Rhonda Watkins [facility] [place] [address] 01/16/2023 14:12:44 01/16/2023 15:00:55 Vaginal irritation 226520529 N89.8 Acute pharyngitis 476629 003 J02.9 [id number] Rhonda Watkins [facility] [address] [place] [address] 02/04/2023 07:51:37 02/05/2023 10:48:21 Pelvic and perineal pain 046066058 R10.2 Genital he rpes simplex 96572572 A60.9 [id number] Yolette Sotelo [address] [address] 04/18/2023 10:23:36 04/18/2023 11:55:33 Acute pharyngitis 416431501 J02.9 Influenza caused by Influenza A virus 374832366 J09.X2 off work until until Thursday [id number] Bharati Tong [address] [address] 04/21/2023 08:50:39 04/21/2023 09:56:48 Missed period 72809621 N92.5 Influenza caused by Influenza A virus 970040355 J09.X2 [id number] BG CATALAN, [facility]-[address] [address] 07/23/2023 08:09:18 07/23/2023 09:21:43 Viral screening 384811391 Z11.59 Streptococ farhan sore throat 37667168 J02.0 [id number] Rhondacorey Odennikole [facility] [address] [place] [address] 09/22/2023 12:09:54 09/22/2023 13:01:44 Vaginal irritation 293917377 N89.8 [id number] [facility] [address] [place] [address] 10/20/2023 13:11:29 10/20/2023 15:12:45 Vaginal irritation 420335021 N89.8 [id number] TAMIA WILL MD [facility] [address] [place] [address] 12/09/2023 09:32:48 12/09/2023 10:44:16 Missed period 98283642 N92.5 Intrauteri ne 59349886 Z34.90 [id number] TAMIA WILL MD [facility] [address] [place] [address] 12/11/2023 16:01:47 12/11/2023 16:33:10 [id number] Francy Nicole DO [facility] [address] [place] [address] 12/16/2023 09:48:15 12/16/2023 16:56:35 71194524 Z33.1 Dating US scheduled in 2 days Tachycardia 4372528 R00. 0 Prescribed metoprolol 25mg QD, has been taking 12.5 [id number] TAMIA WILL MD [facility] [address] [place] [address] 12/18/2023 10:55:41 12/18/2023 11:59:42 Intrauterine 12592223 Z34.90 [id number] Jocelyn Finney, [facility] [address] [place] [address] 01/06/2024 12:33:43 01/06/2024 15:00:47 Sore throat 582264396 J02.9 Acute pharyngitis 824580 003 J02.9 Gestation period, 9 weeks 624008 Z3A.09 Normal weight 34830361 Z 68.22 [id number] Francy Nicole, [facility] [address] [facility] [address] 01/15/2024 16:31:36 01/15/2024 17:20:47 93474331 Z33.1 Health Concerns Section Related Observation LastModified by Organization Detai ls LastModified Time None Recorded Concern Status LastModified by Organization Details LastModified Time None Recorded Advance Directives Directive None Recorded Payers Insurance Date Sequence Insurance Name Policy Number Policy Zaidi Covered Member ID Zaidi Member ID Guarantor Name 06/13/2024 1 [facility] (MEDICAID HMO) [facility] [id number] [facility] 06/01/2023 1 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/16/[facility]23 SLIDING FEE SCHEDULE - DISCOUNT [facility] 12/16/2023 1 *SELF PAY* [facility] 12/16/2023 SLIDING FEE SCHEDULE - DISCOUNT [facility] 03/07/2024 2 *SELF PAY* [facility] 12/16/20[facility] [id number] [facility] Notes Date Note Type [...] She is given warnings. TAMIA WILL MD [address] [place] [address], [address], [employer] 12/11/2023 16:35:43 12/16/2023 text/html ROS as noted [...] visit in two days. Francy Nicole DO [address] [place] [address], [address], [employer] 12/22/2023 12:21:03 12/18/2023 text/html Generic HPI TemplateReported by Patient TAMIA WILL MD [address] [place] [address], [address], [employer] 12/18/2023 11:52:41 01/06/2024 text/html Sore ThroatRepor sathish [...] For duration, patient reportsstarted 3 day(s) ago. NEHEMIAH Sims [address] [place], [address], [employer] 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 Francy Nicole DO [address] [facility], [place], [address], [employer] 01/16/2024 14:11:27 OBGyn Episode Ob Episode Information Episode Created Date Number of Fetuses Patient Bloodtype Patient rh Status Prepregnancy Weight lbs Domestic Partner Domestic Partner Phone Father Name [facility] Nurse Status 12/11/19 1 CLOSED Fetus Data First [...] Domestic Partner Domestic Partner Phone Father Name [facility] Nurse Status 05/17/20 23 1 CLOSED Fetus Data First Name [...] Domestic Partner Domestic Partner Phone Father Name [facility] Nurse Status 12/18/19 24 1 CLOSED Fetus Data First Name Last Name Admitted to NICU Weight (g) Sex Living Outcome Pediatric Complications Fetus ID Race Codes Race Delivery Type 2489.94 [id number] F true Full Term 8847 2106-3 White Problems Problem Notes Problem Name Start Date End Date Resolution Snomed Code Not e Tachycardia 12/22/2023 1665728 On meto prolol 12.5mg QD Cole Calculation Initial Cole Date Initial Exam Date Initial Exam Provider Initial Ultrasound Date Last Menstrual Period Date Ultra Sound Weeks Gestation 08/09/2023 12/18/2023 [email or web address] 12/18/2023 11/03/2023 6 Eighteen To Twenty Week Cole Update Ultra Sound Date Fundal Height At Umbil Quickening Date Ultra Sound Latest Weeks Gestation Final Cole Confirmed By Final Cole Confirmed Date Final Cole Date Ultra Sound Latest Days Gestation 0 [email or web address] 12/18/2023 08/09/19 25 0 Pre- Flowsheet Flowsheet Date 12/16/2023 Zepeda Score Blood Edema Fundus Height Fundus Units Glucose Ketones Leukocytes Nitrite Labor Signs Protein Cervic Dilation Cervic Effacement Cervic Station Type Weight in lbs Pre/Post Dialysis Refused With clothes 137.819585377555 BP Diastolic BP Location Tested BP Systolic [...] in lbs Pre/Post Dialysis Refused With clothes 137.758527801359 BP Diastolic BP Location Tested BP Systolic BP Type sitting Fetus Heart Rate Present Fetus Movement Comments Scan 6.3 week CRL. Labs toda y, 4 weeks Flowsheet Date 01/06/2024 Zepeda Score Blood Edema Fundus Height Fundus Units Glucose Ketones Leukocytes Nitrite Labor Signs Protein Cervic Dilation Cervic Effacement Cervic Station Type Weight in lbs Pre/Post Dialysis Refused With clothes 138.419450274036 BP Diastolic BP Location Tested BP Systolic BP Type 73 R arm 113 sitting Fetus Heart Rate Present Fetus Movement Comments Flowsheet Date 01/15/2024 Zepeda Score Blood Edema Fundus Height Fundus Units Glucose Ketones Leukocytes Nitrite Labor Signs Protein Cervic Dilation Cervic Effacement Cervic Station none neg Type Weight in lbs Pre/Post Dialysis Refused With clothes 136.013575045148 BP Diastolic BP Location Tested BP Systolic [...]
--- OUTSIDE RECORDS SUMMARY | 2025-07-14 08:48 | XMS_ITS | Clinical Summary ---
Author Organization [facility] Address [address] [place] [address] Care Team Providers Care Inspector Plating Name Role Phone Provider, No Known Primary [...] Date Smoking Tobacco: Every Day Cigarettes 1 5 Started: 2020 Smokeless Tobacco: Never Tobacco Cessation:Ready to Q uit: Not Asked; Counseling Given: Not Answered Alcohol Use Standard Drinks/Week Comments Not Currently 0 (1 standard drink = 0.6 oz pur e alcohol) Comments Unknown Sex and Gender Information Value Date Recorded Sex Assigned at Not on file Legal Sex Female 8:39 AM EDT Gender Identity Female 06/20/2025 2:39 PM EST Sexual Orientation Not on file Last Filed [...] 01/10/2025 8:40 AM EDT Plan of Treatment Upcoming Encounters Date Type Department Care Team (Late st Contact Info) Description 09/28/2025 3:00 PM EST Office Visit [facility] [address] [address] Earle Hanley MD [address] [address] Health Maintenance Due Date Last Done Comments Annual Gynecologic Pelvic and Breast Exam 1998 Pneumococcal Vaccine 0-49 (1 of 2 - PCV) 2017 PAP SMEAR 2019 TDAP/TD VACCINES (2 - Td or Tdap) 02/21/2020 010 ANNUAL PHYSICAL 01/10/2025 INFLUENZA VACCINE 02/24/2025 04/29/2023 HEPATITIS C SCREENING Completed 05/20/2025, 024 Insurance MEDICAID [place] Care Teams Inspector Plating Relationship Specialty Start Date End Date Provider, No Known [facility] [place] [address] PCP - General 02/08/24
== END 2025-07-14 23:59 | disposition home or self-care (01) ==
LOC: RAD 08:40
PROVIDERS: PCP Nurse Practitioner Family; Visit Provider Physician Assistant Medical
DX: E80.4 Gilbert syndrome (principal); Z90.49 Acquired absence of other specified parts of digestive tract
CPT/HCPCS: 76705